=== PATIENT | male | born 1960 | race Caucasian/White ===

== ENCOUNTER → 2016-04-13 | Outpatient (REF) | payer MEDICARE, MEDICAID ==
[2016-04-13 20:02] LABS: CALCIUM LEVEL 8.8 MG/DL (8.5-10.1); CREATININE FOR GFR 1.43 MG/DL (0.70-1.30); GLOMERULAR FILTRATION RATE 54.5 (>56)
[2016-04-13 20:04] LABS: POTASSIUM SERUM 5.2 MEQ/L (3.5-5.1)
== END ==
LOC: M SFHCLERA 11:56
PROVIDERS: ATTEND Family Medicine
DX: E87.1 Hypo-osmolality and hyponatremia (principal)

== ENCOUNTER 2016-04-28 15:34 | Emergency (ER) | payer MEDICARE, MEDICAID ==
--- NOTE | 2016-04-28 17:17 | EDDOCDS ---
Nurse's Notes [facility] Name: Hermann Girard Age: 55 yrs Sex: Male : 1960 Arrival Date: 04/28/2016 Time: 15:34 Bed I10 / 23 Private MD: Christelle Hassan M. Diagnosis: Dental alveolar anomalies;Disorders of tooth development and eruption Presentation: 04/28 15:40 Presenting complaint: Patient states: Tooth fragments surfaced in the back of mouth 4 jo3 weeks ago. Has an appointment 05/13 to have removed. Pt reports that he took last pain medication last night. Was taking Hydrcodone but ran out last night. Adult Sepsis Screening: The patient does not have new or worsening altered mentation. Patient's respiratory rate is less than 22. Systolic blood pressure is greater than 100. Patient has a qSOFA score of 0- Negative Sepsis Screen. Suicide/Homicide risk assessment- the patient denies having any suicidal and/or homicidal ideations and does not present with any other emotional, behavioral or mental health complaints. Status: Patient is not a social services technician or dependent. Transition of care: patient was not received from another setting of care. 15:40 Acuity: CHRISTINE Level 5 jo3 15:40 Method Of Arrival: Walkin/Carried/Asstd jo3 Triage Assessment: 15:45 General: Appears in no apparent distress, Behavior is appropriate for age, cooperative. jo3 Pain: Pain currently is 8 out of 10 on a pain scale. HIV screening NA for this visit Offered previously. Neurological: Level of Consciousness is awake, alert, Oriented to person, place, time. Respiratory: Airway is patent Respiratory effort is even, unlabored. Derm: Skin is pink, warm & dry. 17:15 EENT: Reports pain in mouth. pml Historical: - Allergies: no known allergies; - Home Meds: 1. aspirin 81 mg Oral chew 1 tab once daily 2. citalopram 40 mg Oral tab 1 tab once daily 3. Glucosamine 1000mg oral tab twice a day 4. Novolog 100 unit/mL Sub-Q soln insulin pump 5. prednisone 40mg Oral tab once daily 6. Stool Softener oral 1 cap as needed 7. Fish Oil Oral cap daily - PMHx: Anxiety; Diabetes - IDDM: controlled; Glaucoma; neuropathy; TMJ problems; - PSHx: right wrist; fatty tumor removed from right leg; - Social history: Smoking status: Patient states former smoker of tobacco. No barriers to communication noted, The patient speaks fluent Romansh, Speaks appropriately for age. - Family history: Not pertinent. - : The pt / caregiver states he / she is not on anticoagulants. Home medication list is obtained from the patient. - Exposure Risk Screening:: None identified. Screenin:14 Screening information is obtained from the patient. Fall risk: No risks identified. pml Assistance ADL's: requires no assistance with activities of daily living. Abuse/DV Screen: The patient / caregiver reports he/she is: not in a situation that causes fear, pain or injury. Nutritional screening: No deficits noted. Advance Directives: Currently, there is no health care proxy. home support is adequate. Assessment: 17:14 General: Appears in no apparent distress, Behavior is appropriate for age, cooperative. pml Pain: Location: mouth Pain currently is 10 out of 10 on a pain scale. Neurological: Level of Consciousness is awake, alert, Oriented to person, place, time. EENT: Poor dentition noted. Cardiovascular: Capillary refill < 3 seconds. Respiratory: Airway is patent Respiratory effort is even, unlabored. GI: Abdomen is non- distended. Derm: Skin is pink, warm & dry. Vital Signs: 15:36 BP 164 / 89; Pulse 84; Resp 18 S; Temp 96.4(O); Pulse Ox 100% on R/A; Weight 74.84 kg gr2 (R); Height 5 ft. 9 in. (175.26 cm) (R); Pain 6/10; 15:36 Body Mass Index 24.37 (74.84 kg, 175.26 cm) gr2 Vitals: 15:36 Log In Time: April 28, 2016 at 15:36. gr2 ED Course: 15:36 Patient visited by Tiburcio Plunkett. gr2 15:36 Christelle Hassan is Private Physician. gr2 15:36 Patient moved to Waiting gr2 15:37 Patient visited by Tiburcio Plunkett. gr2 15:37 Patient moved to Pre RCE gr2 15:43 Triage Initiated jo3 15:46 Patient visited by Meme Millan RN. jo3 15:58 Patient moved to Triage 3 srm 16:08 Amanuel Valdez FNP is PHCP. ke 16:08 Patient visited by Amanuel Valdez FNP. ke 16:08 Patient visited by Amanuel Valdez FNP. ke 16:08 Patient moved to [facility] 16:33 [facility] Payment Agreement was scanned into [employer] and attached to record. zo 17:14 The patient / caregiver is instructed regarding the plan of care and ED course. Patient pml has correct armband on for positive identification. Bed in low position. Call light in reach. 17:14 No IV's were initiated during this patient's visit. No procedures done that require pml assistance. Order Results: There are currently no results for this order. Outcome: 16:35 Discharge ordered by Provider. ke 17:14 Discharge Assessment: Patient awake, alert and oriented x 3. No cognitive and/or pml functional deficits noted. Patient verbalized understanding of disposition instructions. patient administered narcotics - no. The following High Risk Discharge criteria are identified: None. Discharged to home ambulatory. Condition: good Condition: stable. Discharge instructions given to patient, Instructed on discharge instructions, follow up and referral plans. medication usage, no driving heavy equipment, Demonstrated understanding of instructions, medications, Pt was receptive of discharge instructions/ teaching. Prescriptions given X 1. No special radiology studies were completed. Property sent home with patient. 17:16 Patient left the ED. pml Signatures: Lily Pereira, NERI [facility] Amanuel Valdez FNP FNP ke Helmerci, Jennifer, RN RN jo3 Olin, Zoeann zo Quay, Paulina, RN RN pml Raymond, Gainslee gr2 Sweeney, Julia, RN RN js15 ERLIN
--- NOTE | 2016-04-28 17:17 | EDDOCDS ---
Physician Documentation [facility] Name: Hermann Girard Age: 55 yrs Sex: Male : 1960 Arrival Date: 04/28/2016 Time: 15:34 Bed I10 / 23 Private MD: Christelle Hassan M. Disposition: 04/28/16 16:35 Discharged to Home/Self Care. Impression: Dental alveolar anomalies, Disorders of tooth development and eruption. - Condition is Stable. - Discharge Instructions: Dental Pain. - Prescriptions for [place] 5- 325 mg Oral Tablet - take 1 tablet by ORAL route every 6 hours As needed MDD: 4 tabs; 20 tablet. - Medication Reconciliation, Local Pharmacy Hours form. - Follow up: Private Physician; When: As soon as possible; Reason: Continuance of care. - Problem is an ongoing problem. - Symptoms are unchanged. Historical: - Allergies: no known allergies; - Home Meds: 1. aspirin 81 mg Oral chew 1 tab once daily 2. citalopram 40 mg Oral tab 1 tab once daily 3. Glucosamine 1000mg oral tab twice a day 4. Novolog 100 unit/mL Sub-Q soln insulin pump 5. prednisone 40mg Oral tab once daily 6. Stool Softener oral 1 cap as needed 7. Fish Oil Oral cap daily - PMHx: Anxiety; Diabetes - IDDM: controlled; Glaucoma; neuropathy; TMJ problems; - PSHx: right wrist; fatty tumor removed from right leg; - Social history: Smoking status: Patient states former smoker of tobacco. No barriers to communication noted, The patient speaks fluent Yoruba, Speaks appropriately for age. - Family history: Not pertinent. - : The pt / caregiver states he / she is not on anticoagulants. Home medication list is obtained from the patient. - Exposure Risk Screening:: None identified. Vital Signs: 04/28 15:36 BP 164 / 89; Pulse 84; Resp 18 S; Temp 96.4(O); Pulse Ox 100% on R/A; Weight 74.84 kg / gr2 164.99 lbs (R); Height 5 ft. 9 in. (175.26 cm) (R); Pain 6/10; 15:36 Body Mass Index 24.37 (74.84 kg, 175.26 cm) gr2 MDM: 16:31 Financial registration complete. zo 16:33 [facility] Payment Agreement was scanned into [employer] and attached to record. zo Signatures: Amanuel Valdez, Meme Turner RN RN Keren Pathak Paulina, RN RN pml The chart was reviewed and I authenticate all verbal orders and agree with the evaluation and treatment provided.Attachments: 16:33 [facility] Payment Agreement zo MTDD
--- NOTE | 2016-04-30 18:17 | EDDOCDS ---
Physician Documentation [facility] Name: Hermann Girard Age: 55 yrs Sex: Male : 1960 Arrival Date: 04/28/2016 Time: 15:34 Bed I10 / 23 Private MD: Christelle Hassan M. Disposition: 04/28/16 16:35 Discharged to Home/Self Care. Impression: Dental alveolar anomalies, Disorders of tooth development and eruption. - Condition is Stable. - Discharge Instructions: Dental Pain. - Prescriptions for [place] 5- 325 mg Oral Tablet - take 1 tablet by ORAL route every 6 hours As needed MDD: 4 tabs; 20 tablet. - Medication Reconciliation, Local Pharmacy Hours form. - Follow up: Private Physician; When: As soon as possible; Reason: Continuance of care. - Problem is an ongoing problem. - Symptoms are unchanged. Historical: - Allergies: no known allergies; - Home Meds: 1. aspirin 81 mg Oral chew 1 tab once daily 2. citalopram 40 mg Oral tab 1 tab once daily 3. Glucosamine 1000mg oral tab twice a day 4. Novolog 100 unit/mL Sub-Q soln insulin pump 5. prednisone 40mg Oral tab once daily 6. Stool Softener oral 1 cap as needed 7. Fish Oil Oral cap daily - PMHx: Anxiety; Diabetes - IDDM: controlled; Glaucoma; neuropathy; TMJ problems; - PSHx: right wrist; fatty tumor removed from right leg; - Social history: Smoking status: Patient states former smoker of tobacco. No barriers to communication noted, The patient speaks fluent Pashto, Speaks appropriately for age. - Family history: Not pertinent. - : The pt / caregiver states he / she is not on anticoagulants. Home medication list is obtained from the patient. - Exposure Risk Screening:: None identified. Vital Signs: 04/28 15:36 BP 164 / 89; Pulse 84; Resp 18 S; Temp 96.4(O); Pulse Ox 100% on R/A; Weight 74.84 kg / gr2 164.99 lbs (R); Height 5 ft. 9 in. (175.26 cm) (R); Pain 6/10; 15:36 Body Mass Index 24.37 (74.84 kg, 175.26 cm) gr2 MDM: 16:31 Financial registration complete. zo 16:33 [facility] Payment Agreement was scanned into [employer] and attached to record. zo 04/29 09:24 T-Sheet-- Draft Copy was scanned into [employer] and attached to record. [facility] Signatures: Amanuel Valdez FNP FNP ke [place]mer[place], Jennifer, RN RN jo3 Keren Zuluaga Paulina, RN RN pml Hoffert, Sarah [facility] The chart was reviewed and I authenticate all verbal orders and agree with the evaluation and treatment provided.Attachments: 04/28 16:33 [facility] Payment Agreement zo 04/29 09:24 T-Sheet-- Draft Copy [facility] Chart Complete MTDD
--- NOTE | 2016-04-30 18:17 | EDDOCDS ---
Physician Documentation [facility] Name: Hermann Girard Age: 55 yrs Sex: Male : 1960 Arrival Date: 04/28/2016 Time: 15:34 Bed I10 / 23 Private MD: Christelle Hassan M. Disposition: 04/28/16 16:35 Discharged to Home/Self Care. Impression: Dental alveolar anomalies, Disorders of tooth development and eruption. - Condition is Stable. - Discharge Instructions: Dental Pain. - Prescriptions for [place] 5- 325 mg Oral Tablet - take 1 tablet by ORAL route every 6 hours As needed MDD: 4 tabs; 20 tablet. - Medication Reconciliation, Local Pharmacy Hours form. - Follow up: Private Physician; When: As soon as possible; Reason: Continuance of care. - Problem is an ongoing problem. - Symptoms are unchanged. Historical: - Allergies: no known allergies; - Home Meds: 1. aspirin 81 mg Oral chew 1 tab once daily 2. citalopram 40 mg Oral tab 1 tab once daily 3. Glucosamine 1000mg oral tab twice a day 4. Novolog 100 unit/mL Sub-Q soln insulin pump 5. prednisone 40mg Oral tab once daily 6. Stool Softener oral 1 cap as needed 7. Fish Oil Oral cap daily - PMHx: Anxiety; Diabetes - IDDM: controlled; Glaucoma; neuropathy; TMJ problems; - PSHx: right wrist; fatty tumor removed from right leg; - Social history: Smoking status: Patient states former smoker of tobacco. No barriers to communication noted, The patient speaks fluent Polish, Speaks appropriately for age. - Family history: Not pertinent. - : The pt / caregiver states he / she is not on anticoagulants. Home medication list is obtained from the patient. - Exposure Risk Screening:: None identified. Vital Signs: 04/28 15:36 BP 164 / 89; Pulse 84; Resp 18 S; Temp 96.4(O); Pulse Ox 100% on R/A; Weight 74.84 kg / gr2 164.99 lbs (R); Height 5 ft. 9 in. (175.26 cm) (R); Pain 6/10; 15:36 Body Mass Index 24.37 (74.84 kg, 175.26 cm) gr2 MDM: 16:31 Financial registration complete. zo 16:33 [facility] Payment Agreement was scanned into [employer] and attached to record. zo 04/29 09:24 T-Sheet-- Draft Copy was scanned into [employer] and attached to record. [facility] Signatures: Amanuel Valdez FNP FNP ke Helmerci, Jennifer, RN RN jo3 Keren Zuluaga Paulina, RN RN pml Hoffert, Sarah [facility] The chart was reviewed and I authenticate all verbal orders and agree with the evaluation and treatment provided.Attachments: 04/28 16:33 [facility] Payment Agreement zo 04/29 09:24 T-Sheet-- Draft Copy [facility] Chart Complete MTDD
--- NOTE | 2016-04-30 18:17 | EDDOCDS ---
Nurse's Notes [facility] Name: Hermann Girard Age: 55 yrs Sex: Male : 1960 Arrival Date: 04/28/2016 Time: 15:34 Bed I10 / 23 Private MD: Christelle Hassan M. Diagnosis: Dental alveolar anomalies;Disorders of tooth development and eruption Presentation: 04/28 15:40 Presenting complaint: Patient states: Tooth fragments surfaced in the back of mouth 4 jo3 weeks ago. Has an appointment 05/13 to have removed. Pt reports that he took last pain medication last night. Was taking Hydrcodone but ran out last night. Adult Sepsis Screening: The patient does not have new or worsening altered mentation. Patient's respiratory rate is less than 22. Systolic blood pressure is greater than 100. Patient has a qSOFA score of 0- Negative Sepsis Screen. Suicide/Homicide risk assessment- the patient denies having any suicidal and/or homicidal ideations and does not present with any other emotional, behavioral or mental health complaints. Status: Patient is not a toll service observer or dependent. Transition of care: patient was not received from another setting of care. 15:40 Acuity: CHRISTINE Level 5 jo3 15:40 Method Of Arrival: Walkin/Carried/Asstd jo3 Triage Assessment: 15:45 General: Appears in no apparent distress, Behavior is appropriate for age, cooperative. jo3 Pain: Pain currently is 8 out of 10 on a pain scale. HIV screening NA for this visit Offered previously. Neurological: Level of Consciousness is awake, alert, Oriented to person, place, time. Respiratory: Airway is patent Respiratory effort is even, unlabored. Derm: Skin is pink, warm & dry. 17:15 EENT: Reports pain in mouth. pml Historical: - Allergies: no known allergies; - Home Meds: 1. aspirin 81 mg Oral chew 1 tab once daily 2. citalopram 40 mg Oral tab 1 tab once daily 3. Glucosamine 1000mg oral tab twice a day 4. Novolog 100 unit/mL Sub-Q soln insulin pump 5. prednisone 40mg Oral tab once daily 6. Stool Softener oral 1 cap as needed 7. Fish Oil Oral cap daily - PMHx: Anxiety; Diabetes - IDDM: controlled; Glaucoma; neuropathy; TMJ problems; - PSHx: right wrist; fatty tumor removed from right leg; - Social history: Smoking status: Patient states former smoker of tobacco. No barriers to communication noted, The patient speaks fluent Hebrew, Speaks appropriately for age. - Family history: Not pertinent. - : The pt / caregiver states he / she is not on anticoagulants. Home medication list is obtained from the patient. - Exposure Risk Screening:: None identified. Screenin:14 Screening information is obtained from the patient. Fall risk: No risks identified. pml Assistance ADL's: requires no assistance with activities of daily living. Abuse/DV Screen: The patient / caregiver reports he/she is: not in a situation that causes fear, pain or injury. Nutritional screening: No deficits noted. Advance Directives: Currently, there is no health care proxy. home support is adequate. Assessment: 17:14 General: Appears in no apparent distress, Behavior is appropriate for age, cooperative. pml Pain: Location: mouth Pain currently is 10 out of 10 on a pain scale. Neurological: Level of Consciousness is awake, alert, Oriented to person, place, time. EENT: Poor dentition noted. Cardiovascular: Capillary refill < 3 seconds. Respiratory: Airway is patent Respiratory effort is even, unlabored. GI: Abdomen is non- distended. Derm: Skin is pink, warm & dry. Vital Signs: 15:36 BP 164 / 89; Pulse 84; Resp 18 S; Temp 96.4(O); Pulse Ox 100% on R/A; Weight 74.84 kg gr2 (R); Height 5 ft. 9 in. (175.26 cm) (R); Pain 6/10; 15:36 Body Mass Index 24.37 (74.84 kg, 175.26 cm) gr2 Vitals: 15:36 Log In Time: April 28, 2016 at 15:36. gr2 ED Course: 15:36 Patient visited by Tiburcio Plunkett. gr2 15:36 Christelle Hassan is Private Physician. gr2 15:36 Patient moved to Waiting gr2 15:37 Patient visited by Tiburcio Plunkett. gr2 15:37 Patient moved to Pre RCE gr2 15:43 Triage Initiated jo3 15:46 Patient visited by Meme Millan RN. jo3 15:58 Patient moved to Triage 3 srm 16:08 Amanuel Valdez FNP is PHCP. ke 16:08 Patient visited by Amanuel Valdez FNP. ke 16:08 Patient visited by Amanuel Valdez FNP. ke 16:08 Patient moved to I1 [facility] 16:33 [facility] Payment Agreement was scanned into [employer] and attached to record. zo 17:14 The patient / caregiver is instructed regarding the plan of care and ED course. Patient pml has correct armband on for positive identification. Bed in low position. Call light in reach. 17:14 No IV's were initiated during this patient's visit. No procedures done that require pml assistance. 04/29 09:24 T-Sheet-- Draft Copy was scanned into [employer] and attached to record. [facility] Order Results: There are currently no results for this order. Outcome: 04/28 16:35 Discharge ordered by Provider. ke 17:14 Discharge Assessment: Patient awake, alert and oriented x 3. No cognitive and/or pml functional deficits noted. Patient verbalized understanding of disposition instructions. patient administered narcotics - no. The following High Risk Discharge criteria are identified: None. Discharged to home ambulatory. Condition: good Condition: stable. Discharge instructions given to patient, Instructed on discharge instructions, follow up and referral plans. medication usage, no driving heavy equipment, Demonstrated understanding of instructions, medications, Pt was receptive of discharge instructions/ teaching. Prescriptions given X 1. No special radiology studies were completed. Property sent home with patient. 17:16 Patient left the ED. pml Signatures: Lily Pereira, RN NERI [facility] Amanuel Valdez FNP FNP ke Helmerci, Jennifer, RN RN jo3 Olin, Zoeann zo Quay, Paulina, RN RN pml Raymond, Gainslee 2 Rachel Peterson RN RN js15 Lorie Baird [facility] Chart Complete MTDD
== END 2016-04-28 17:16 | disposition home or self-care (01) ==
LOC: M ED 15:34
DX: R68.84 Jaw pain (principal); K08.89 Other specified disorders of teeth and supporting structures; F41.9 Anxiety disorder, unspecified; E11.9 Type 2 diabetes mellitus without complications; G62.9 Polyneuropathy, unspecified; M26.609 Unspecified temporomandibular joint disorder, unspecified side; H40.9 Unspecified glaucoma; Z87.891 Personal history of nicotine dependence; Z79.82 Long term (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; Z79.4 Long term (current) use of insulin; Z79.899 Other long term (current) drug therapy

== ENCOUNTER 2016-05-25 17:52 | Emergency (ER) | payer MEDICARE, MEDICAID ==
--- NOTE | 2016-05-25 18:41 | EDDOCDS ---
Nurse's Notes [facility] Name: Hermann Girard Age: 55 yrs Sex: Male : 1960 Arrival Date: 05/25/2016 Time: 17:52 Bed TR7 Private MD: Christelle Hasasn M. Diagnosis: Encounter for other postprocedural aftercare-POST EXTRACTION PAIN Presentation: 05/25 17:56 Presenting complaint: Patient states: teeth extracted 2 weeks ago by [facility] left kpj facial swelling and severe pain. taking Ibuprofen without relief. Adult Sepsis Screening: The patient does not have new or worsening altered mentation. Patient's respiratory rate is less than 22. Systolic blood pressure is less than or equal to 100 (1 point). Patient has a qSOFA score of 1- Negative Sepsis Screen. Suicide/Homicide risk assessment- the patient denies having any suicidal and/or homicidal ideations and does not present with any other emotional, behavioral or mental health complaints. Status: Patient is not a resident services manager or dependent. Transition of care: patient was not received from another setting of care. 17:56 Acuity: CHRISTINE Level 4 [facility] 17:56 Method Of Arrival: Walkin/Carried/Asstd [facility] Triage Assessment: 18:05 General: Appears uncomfortable, Behavior is appropriate for age. Pain: Location: right kpj and left gumline where he had teeth extracted Pain currently is 8 out of 10 on a pain scale. Pt Declines HIV testing. Neurological: Level of Consciousness is awake, alert, Oriented to person, place, time. EENT: facial swelling both sides of face ,left worse than right. Respiratory: Airway is patent Respiratory effort is even, unlabored. Derm: Skin is pink, warm & dry. Historical: - Allergies: No known drug Allergies; - Home Meds: 1. aspirin 81 mg oral tab 1 tab once daily (Last dose: 05/25/2016 08:00) 2. citalopram 40 mg Oral tab 1 tab once daily (Last dose: 05/25/2016 08:00) 3. Fish Oil Oral cap daily (Last dose: 05/25/2016 08:00) 4. Glucosamine 200 mg oral tab daily (Last dose: 05/25/2016 08:00) 5. Novolog 100 unit/mL Sub-Q soln insulin pump 6. etodolac 200 mg Oral cap 1 cap daily (Last dose: 05/25/2016 08:00) 7. methocarbamol 500 mg Oral tab 1 tabs every 4 hours as needed (Last dose: Unknown) 8. Flonase 50 mcg/actuation Nasal spsn 1 spray 2 times per day as needed (Last dose: Unknown) 9. Cosopt 22.3-6.8 mg/mL Opht drop 1 drop 2 times per day (Last dose: 05/25/2016 08:00) 10. lantaprost 0.005% 1 drop twice a day (Last dose: 05/25/2016 08:00) 11. prednisone 35 mg Oral tab once daily (Last dose: 05/25/2016 08:00) 12. lisinopril 10 mg Oral tab 1 tab once daily (Last dose: 05/25/2016 08:00) - PMHx: Anxiety; Diabetes - IDDM: controlled; Glaucoma; neuropathy; TMJ problems; - PSHx: right wrist; fatty tumor removed from right leg; teeth extraction; - Social history: Smoking status: Patient states former smoker of tobacco. No barriers to communication noted, The patient speaks fluent Yemeni. - Family history: Not pertinent. - : The pt / caregiver states he / she is not on anticoagulants. Home medication list is obtained from the patient. - Exposure Risk Screening:: None identified. Screenin:39 Screening information is obtained from the patient. Fall risk: No risks identified. srm Assistance ADL's: requires no assistance with activities of daily living. Abuse/DV Screen: The patient / caregiver reports he/she is: not in a situation that causes fear, pain or injury. Nutritional screening: No deficits noted. Advance Directives: There is no active DNR order. home support is adequate. Assessment: 18:38 General: Appears uncomfortable, Behavior is appropriate for age, cooperative. srm Neurological: No deficits noted. Cardiovascular: No deficits noted. Respiratory: No deficits noted. GI: No deficits noted. Vital Signs: 17:54 BP 94 / 56; Pulse 76; Resp 18 S; Temp 97.4(O); Pulse Ox 98% on R/A; Weight 76.66 kg gr2 (R); Height 5 ft. 9 in. (175.26 cm) (R); Pain 8/10; 17:54 Body Mass Index 24.96 (76.66 kg, 175.26 cm) gr2 Vitals: 17:54 Log In Time: May 25, 2016 at 17:54. gr2 ED Course: 17:53 Patient visited by Tiburcio Plunkett. gr2 17:53 Christelle Hassan is Private Physician. gr2 17:53 Patient moved to Waiting gr2 17:56 Patient visited by Tiburcio Plunkett. gr2 17:56 Patient moved to Pre RCE gr2 17:58 Triage Initiated kpj 18:07 Patient moved to Triage 3 kpj 18:11 Eugenio Thorpe R[facility]-C [facility] ck7 18:11 Lobito Armstrong MD is Attending Physician. ck7 18:12 Patient visited by Eugenio Thorpe RPA-C. ck7 18:30 Your, Dentist is Referral Physician. ck7 18:37 Patient moved to TR7 [facility] 18:39 The patient / caregiver is instructed regarding the plan of care and ED course. Patient srm has correct armband on for positive identification. 18:39 No IV's were initiated during this patient's visit. No procedures done that require srm assistance. Order Results: There are currently no results for this order. Outcome: 18:30 Discharge ordered by Provider. ck7 18:39 Discharge Assessment: Patient awake, alert and oriented x 3. No cognitive and/or srm functional deficits noted. Patient verbalized understanding of disposition instructions. patient administered narcotics - no. The following High Risk Discharge criteria are identified: None. Discharged to home ambulatory. Condition: good Condition: stable. Discharge instructions given to patient, Instructed on discharge instructions, follow up and referral plans. medication usage, Demonstrated understanding of instructions, medications, Pt was receptive of discharge instructions/ teaching. Prescriptions given X 1. No special radiology studies were completed. Property sent home with patient. 18:40 Patient left the ED. srm Signatures: Kerry Barraza RN RN kpj Michelson, Staci, RN RN [facility] Eugenio Thorpe RPA-C [facility] Tiburcio Plunkett gr2 MTDD
--- NOTE | 2016-05-25 18:41 | EDDOCDS ---
Physician Documentation [facility] Name: Hermann Girard Age: 55 yrs Sex: Male : 1960 Arrival Date: 05/25/2016 Time: 17:52 Bed TR7 Private MD: Christelle Hassan M. Disposition: 05/25/16 18:30 Discharged to Home/Self Care. Impression: Encounter for other postprocedural aftercare - POST EXTRACTION PAIN. - Condition is Stable. - Discharge Instructions: Dental Extraction, Care After. - Prescriptions for Ultram 50 mg Oral Tablet - take 1 tablet by ORAL route every [address] BARRERA, MDD: 4 tabs; 6 tablet. - Medication Reconciliation, Local Pharmacy Hours form. - Follow up: Your, Dentist; When: Tomorrow; Reason: Recheck today's complaints, Continuance of care. - Problem is new. - Symptoms have improved. - Notes: USE MEDICATION INSTRUCTED, FOLLOW UP WITH YOUR DENTIST TOMORROW Historical: - Allergies: No known drug Allergies; - Home Meds: 1. aspirin 81 mg oral tab 1 tab once daily (Last dose: 05/25/2016 08:00) 2. citalopram 40 mg Oral tab 1 tab once daily (Last dose: 05/25/2016 08:00) 3. Fish Oil Oral cap daily (Last dose: 05/25/2016 08:00) 4. Glucosamine 200 mg oral tab daily (Last dose: 05/25/2016 08:00) 5. Novolog 100 unit/mL Sub-Q soln insulin pump 6. etodolac 200 mg Oral cap 1 cap daily (Last dose: 05/25/2016 08:00) 7. methocarbamol 500 mg Oral tab 1 tabs every 4 hours as needed (Last dose: Unknown) 8. Flonase 50 mcg/actuation Nasal spsn 1 spray 2 times per day as needed (Last dose: Unknown) 9. Cosopt 22.3-6.8 mg/mL Opht drop 1 drop 2 times per day (Last dose: 05/25/2016 08:00) 10. lantaprost 0.005% 1 drop twice a day (Last dose: 05/25/2016 08:00) 11. prednisone 35 mg Oral tab once daily (Last dose: 05/25/2016 08:00) 12. lisinopril 10 mg Oral tab 1 tab once daily (Last dose: 05/25/2016 08:00) - PMHx: Anxiety; Diabetes - IDDM: controlled; Glaucoma; neuropathy; TMJ problems; - PSHx: right wrist; fatty tumor removed from right leg; teeth extraction; - Social history: Smoking status: Patient states former smoker of tobacco. No barriers to communication noted, The patient speaks fluent Japanese. - Family history: Not pertinent. - : The pt / caregiver states he / she is not on anticoagulants. Home medication list is obtained from the patient. - Exposure Risk Screening:: None identified. Vital Signs: 05/25 17:54 BP 94 / 56; Pulse 76; Resp 18 S; Temp 97.4(O); Pulse Ox 98% on R/A; Weight 76.66 kg / gr2 169.01 lbs (R); Height 5 ft. 9 in. (175.26 cm) (R); Pain 8/10; 17:54 Body Mass Index 24.96 (76.66 kg, 175.26 cm) gr2 MDM: 18:34 Financial registration complete. kf3 Signatures: Kerry Barraza, RN RN Lily Huber RN RN srm Fiddler, Kris, Reg Reg kf3 Eugenio Thorpe, RPA-C RPA-Cck7 MTDD
--- NOTE | 2016-05-27 19:41 | EDDOCDS ---
Physician Documentation [facility] Name: Hermann Girard Age: 55 yrs Sex: Male : 1960 Arrival Date: 05/25/2016 Time: 17:52 Bed TR7 Private MD: Christelle Hassan M. Disposition: 05/25/16 18:30 Discharged to Home/Self Care. Impression: Encounter for other postprocedural aftercare - POST EXTRACTION PAIN. - Condition is Stable. - Discharge Instructions: Dental Extraction, Care After. - Prescriptions for Ultram 50 mg Oral Tablet - take 1 tablet by ORAL route every [address] BARRERA, MDD: 4 tabs; 6 tablet. - Medication Reconciliation, Local Pharmacy Hours form. - Follow up: Your, Dentist; When: Tomorrow; Reason: Recheck today's complaints, Continuance of care. - Problem is new. - Symptoms have improved. - Notes: USE MEDICATION INSTRUCTED, FOLLOW UP WITH YOUR DENTIST TOMORROW Historical: - Allergies: No known drug Allergies; - Home Meds: 1. aspirin 81 mg oral tab 1 tab once daily (Last dose: 05/25/2016 08:00) 2. citalopram 40 mg Oral tab 1 tab once daily (Last dose: 05/25/2016 08:00) 3. Fish Oil Oral cap daily (Last dose: 05/25/2016 08:00) 4. Glucosamine 200 mg oral tab daily (Last dose: 05/25/2016 08:00) 5. Novolog 100 unit/mL Sub-Q soln insulin pump 6. etodolac 200 mg Oral cap 1 cap daily (Last dose: 05/25/2016 08:00) 7. methocarbamol 500 mg Oral tab 1 tabs every 4 hours as needed (Last dose: Unknown) 8. Flonase 50 mcg/actuation Nasal spsn 1 spray 2 times per day as needed (Last dose: Unknown) 9. Cosopt 22.3-6.8 mg/mL Opht drop 1 drop 2 times per day (Last dose: 05/25/2016 08:00) 10. lantaprost 0.005% 1 drop twice a day (Last dose: 05/25/2016 08:00) 11. prednisone 35 mg Oral tab once daily (Last dose: 05/25/2016 08:00) 12. lisinopril 10 mg Oral tab 1 tab once daily (Last dose: 05/25/2016 08:00) - PMHx: Anxiety; Diabetes - IDDM: controlled; Glaucoma; neuropathy; TMJ problems; - PSHx: right wrist; fatty tumor removed from right leg; teeth extraction; - Social history: Smoking status: Patient states former smoker of tobacco. No barriers to communication noted, The patient speaks fluent Tamazight. - Family history: Not pertinent. - : The pt / caregiver states he / she is not on anticoagulants. Home medication list is obtained from the patient. - Exposure Risk Screening:: None identified. Vital Signs: 05/25 17:54 BP 94 / 56; Pulse 76; Resp 18 S; Temp 97.4(O); Pulse Ox 98% on R/A; Weight 76.66 kg / gr2 169.01 lbs (R); Height 5 ft. 9 in. (175.26 cm) (R); Pain 8/10; 17:54 Body Mass Index 24.96 (76.66 kg, 175.26 cm) gr2 MDM: 18:34 Financial registration complete. kf3 18:49 [facility] Payment Agreement was scanned into [employer] and attached to record. kf3 05/26 19:00 T-Sheet-- Draft Copy was scanned into [employer] and attached to record. klr Signatures: Kerry Barraza RN RN kpj Michelson, Staci, RN RN srm Fidcharityr, Danilo, Reg Reg kf3 Eugenio Thorpe, RPA-C RPA-Cck7 Colette Edmonds The chart was reviewed and I authenticate all verbal orders and agree with the evaluation and treatment provided.Attachments: 05/25 18:49 [facility] Payment Agreement kf3 05/26 19:00 T-Sheet-- Draft Copy klr Chart Complete MTDD
--- NOTE | 2016-05-27 19:41 | EDDOCDS ---
Physician Documentation [facility] Name: Hermann Girard Age: 55 yrs Sex: Male : 1960 Arrival Date: 05/25/2016 Time: 17:52 Bed TR7 Private MD: Christelle Hassan M. Disposition: 05/25/16 18:30 Discharged to Home/Self Care. Impression: Encounter for other postprocedural aftercare - POST EXTRACTION PAIN. - Condition is Stable. - Discharge Instructions: Dental Extraction, Care After. - Prescriptions for Ultram 50 mg Oral Tablet - take 1 tablet by ORAL route every [address] BARRERA, MDD: 4 tabs; 6 tablet. - Medication Reconciliation, Local Pharmacy Hours form. - Follow up: Your, Dentist; When: Tomorrow; Reason: Recheck today's complaints, Continuance of care. - Problem is new. - Symptoms have improved. - Notes: USE MEDICATION INSTRUCTED, FOLLOW UP WITH YOUR DENTIST TOMORROW Historical: - Allergies: No known drug Allergies; - Home Meds: 1. aspirin 81 mg oral tab 1 tab once daily (Last dose: 05/25/2016 08:00) 2. citalopram 40 mg Oral tab 1 tab once daily (Last dose: 05/25/2016 08:00) 3. Fish Oil Oral cap daily (Last dose: 05/25/2016 08:00) 4. Glucosamine 200 mg oral tab daily (Last dose: 05/25/2016 08:00) 5. Novolog 100 unit/mL Sub-Q soln insulin pump 6. etodolac 200 mg Oral cap 1 cap daily (Last dose: 05/25/2016 08:00) 7. methocarbamol 500 mg Oral tab 1 tabs every 4 hours as needed (Last dose: Unknown) 8. Flonase 50 mcg/actuation Nasal spsn 1 spray 2 times per day as needed (Last dose: Unknown) 9. Cosopt 22.3-6.8 mg/mL Opht drop 1 drop 2 times per day (Last dose: 05/25/2016 08:00) 10. lantaprost 0.005% 1 drop twice a day (Last dose: 05/25/2016 08:00) 11. prednisone 35 mg Oral tab once daily (Last dose: 05/25/2016 08:00) 12. lisinopril 10 mg Oral tab 1 tab once daily (Last dose: 05/25/2016 08:00) - PMHx: Anxiety; Diabetes - IDDM: controlled; Glaucoma; neuropathy; TMJ problems; - PSHx: right wrist; fatty tumor removed from right leg; teeth extraction; - Social history: Smoking status: Patient states former smoker of tobacco. No barriers to communication noted, The patient speaks fluent Korean. - Family history: Not pertinent. - : The pt / caregiver states he / she is not on anticoagulants. Home medication list is obtained from the patient. - Exposure Risk Screening:: None identified. Vital Signs: 05/25 17:54 BP 94 / 56; Pulse 76; Resp 18 S; Temp 97.4(O); Pulse Ox 98% on R/A; Weight 76.66 kg / gr2 169.01 lbs (R); Height 5 ft. 9 in. (175.26 cm) (R); Pain 8/10; 17:54 Body Mass Index 24.96 (76.66 kg, 175.26 cm) gr2 MDM: 18:34 Financial registration complete. kf3 18:49 [facility] Payment Agreement was scanned into [employer] and attached to record. kf3 05/26 19:00 T-Sheet-- Draft Copy was scanned into [employer] and attached to record. klr Signatures: Kerry Barraza RN RN kpj Michelson, Staci, RN RN srm Fidcharityr, Danilo, Reg Reg kf3 Eugenio Thorpe, RPA-C RPA-Cck7 Colette Edmonds The chart was reviewed and I authenticate all verbal orders and agree with the evaluation and treatment provided.Attachments: 05/25 18:49 [facility] Payment Agreement kf3 05/26 19:00 T-Sheet-- Draft Copy klr Chart Complete MTDD
--- NOTE | 2016-05-27 19:42 | EDDOCDS ---
Nurse's Notes [facility] Name: Hermann Girard Age: 55 yrs Sex: Male : 1960 Arrival Date: 05/25/2016 Time: 17:52 Bed TR7 Private MD: Christelle Hassan M. Diagnosis: Encounter for other postprocedural aftercare-POST EXTRACTION PAIN Presentation: 05/25 17:56 Presenting complaint: Patient states: teeth extracted 2 weeks ago by [facility] left kpj facial swelling and severe pain. taking Ibuprofen without relief. Adult Sepsis Screening: The patient does not have new or worsening altered mentation. Patient's respiratory rate is less than 22. Systolic blood pressure is less than or equal to 100 (1 point). Patient has a qSOFA score of 1- Negative Sepsis Screen. Suicide/Homicide risk assessment- the patient denies having any suicidal and/or homicidal ideations and does not present with any other emotional, behavioral or mental health complaints. Status: Patient is not a service worker helper or dependent. Transition of care: patient was not received from another setting of care. 17:56 Acuity: CHRISTINE Level 4 [facility] 17:56 Method Of Arrival: Walkin/Carried/Asstd [facility] Triage Assessment: 18:05 General: Appears uncomfortable, Behavior is appropriate for age. Pain: Location: right kpj and left gumline where he had teeth extracted Pain currently is 8 out of 10 on a pain scale. Pt Declines HIV testing. Neurological: Level of Consciousness is awake, alert, Oriented to person, place, time. EENT: facial swelling both sides of face ,left worse than right. Respiratory: Airway is patent Respiratory effort is even, unlabored. Derm: Skin is pink, warm & dry. Historical: - Allergies: No known drug Allergies; - Home Meds: 1. aspirin 81 mg oral tab 1 tab once daily (Last dose: 05/25/2016 08:00) 2. citalopram 40 mg Oral tab 1 tab once daily (Last dose: 05/25/2016 08:00) 3. Fish Oil Oral cap daily (Last dose: 05/25/2016 08:00) 4. Glucosamine 200 mg oral tab daily (Last dose: 05/25/2016 08:00) 5. Novolog 100 unit/mL Sub-Q soln insulin pump 6. etodolac 200 mg Oral cap 1 cap daily (Last dose: 05/25/2016 08:00) 7. methocarbamol 500 mg Oral tab 1 tabs every 4 hours as needed (Last dose: Unknown) 8. Flonase 50 mcg/actuation Nasal spsn 1 spray 2 times per day as needed (Last dose: Unknown) 9. Cosopt 22.3-6.8 mg/mL Opht drop 1 drop 2 times per day (Last dose: 05/25/2016 08:00) 10. lantaprost 0.005% 1 drop twice a day (Last dose: 05/25/2016 08:00) 11. prednisone 35 mg Oral tab once daily (Last dose: 05/25/2016 08:00) 12. lisinopril 10 mg Oral tab 1 tab once daily (Last dose: 05/25/2016 08:00) - PMHx: Anxiety; Diabetes - IDDM: controlled; Glaucoma; neuropathy; TMJ problems; - PSHx: right wrist; fatty tumor removed from right leg; teeth extraction; - Social history: Smoking status: Patient states former smoker of tobacco. No barriers to communication noted, The patient speaks fluent Vincentian. - Family history: Not pertinent. - : The pt / caregiver states he / she is not on anticoagulants. Home medication list is obtained from the patient. - Exposure Risk Screening:: None identified. Screenin:39 Screening information is obtained from the patient. Fall risk: No risks identified. srm Assistance ADL's: requires no assistance with activities of daily living. Abuse/DV Screen: The patient / caregiver reports he/she is: not in a situation that causes fear, pain or injury. Nutritional screening: No deficits noted. Advance Directives: There is no active DNR order. home support is adequate. Assessment: 18:38 General: Appears uncomfortable, Behavior is appropriate for age, cooperative. srm Neurological: No deficits noted. Cardiovascular: No deficits noted. Respiratory: No deficits noted. GI: No deficits noted. Vital Signs: 17:54 BP 94 / 56; Pulse 76; Resp 18 S; Temp 97.4(O); Pulse Ox 98% on R/A; Weight 76.66 kg gr2 (R); Height 5 ft. 9 in. (175.26 cm) (R); Pain 8/10; 17:54 Body Mass Index 24.96 (76.66 kg, 175.26 cm) gr2 Vitals: 17:54 Log In Time: May 25, 2016 at 17:54. gr2 ED Course: 17:53 Patient visited by Tiburcio Plunkett. gr2 17:53 Christelle Hassan is Private Physician. gr2 17:53 Patient moved to Waiting gr2 17:56 Patient visited by Tiburcio Plunkett. gr2 17:56 Patient moved to Pre RCE gr2 17:58 Triage Initiated kpj 18:07 Patient moved to Triage 3 kpj 18:11 [facility] ck[facility] 18:11 Lobito Armstrong MD is Attending Physician. ck7 18:12 Patient visited by Eugenio Thorpe RPA-C. ck7 18:30 Giuliano Dentist is Referral Physician. ck7 18:37 Patient moved to TR7 [facility] 18:39 The patient / caregiver is instructed regarding the plan of care and ED course. Patient srm has correct armband on for positive identification. 18:39 No IV's were initiated during this patient's visit. No procedures done that require [facility] assistance. 18:49 Patient name changed from Hermann\S\Rojas\S\Girard\S\ to Hermann\S\A\S\Girard. EDWI 18:49 [facility] Payment Agreement was scanned into [employer] and attached to record. kf3 05/26 19:00 T-Sheet-- Draft Copy was scanned into [employer] and attached to record. klr Order Results: There are currently no results for this order. Outcome: 05/25 18:30 Discharge ordered by Provider. ck7 18:39 Discharge Assessment: Patient awake, alert and oriented x 3. No cognitive and/or srm functional deficits noted. Patient verbalized understanding of disposition instructions. patient administered narcotics - no. The following High Risk Discharge criteria are identified: None. Discharged to home ambulatory. Condition: good Condition: stable. Discharge instructions given to patient, Instructed on discharge instructions, follow up and referral plans. medication usage, Demonstrated understanding of instructions, medications, Pt was receptive of discharge instructions/ teaching. Prescriptions given X 1. No special radiology studies were completed. Property sent home with patient. 18:40 Patient left the ED. srm Signatures: Dispatcher [employer] EDMS Kerry Barraza RN RN j Lily Pereira RN RN srm Moise, Danilo, Reg Reg kf3 Eugenio Thorpe, RPA-C RPA-Cck7 Tiburcio Plunkett gr2 Colette Edmonds Chart Complete MTDD
== END 2016-05-25 18:40 | disposition home or self-care (01) ==
LOC: M ED 17:52
DX: G89.18 Other acute postprocedural pain (principal); F41.9 Anxiety disorder, unspecified; E10.9 Type 1 diabetes mellitus without complications; L40.9 Psoriasis, unspecified; G62.9 Polyneuropathy, unspecified; Z87.891 Personal history of nicotine dependence; Z79.82 Long term (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; Z96.41 Presence of insulin pump (external) (internal); Z79.899 Other long term (current) drug therapy

== ENCOUNTER → 2016-06-07 | Outpatient (CLI) | payer MEDICARE, MEDICAID ==
[2016-06-07 18:33] LABS: ALBUMIN 3.2 GM/DL (3.2-5.2); ALBUMIN/GLOBULIN RATIO 1.19 (1.00-1.93); ALKALINE PHOSPHATASE 55 U/L (45-117); ALT/SGPT 60 U/L (12-78); ANION GAP 8 MEQ/L (8-16); AST/SGOT 39 U/L (15-37); BILIRUBIN,TOTAL 0.5 MG/DL (0.2-1.0); BLOOD UREA NITROGEN 29 MG/DL (7-18); CARBON DIOXIDE LEVEL 29 MEQ/L (21-32); CHLORIDE LEVEL 107 MEQ/L (98-107); CREATININE FOR GFR 1.44 MG/DL (0.70-1.30); GLUCOSE, FASTING 74 MG/DL (70-105); POTASSIUM SERUM 4.5 MEQ/L (3.5-5.1); SODIUM LEVEL 144 MEQ/L (136-145); TOTAL PROTEIN 5.9 GM/DL (6.4-8.2)
[2016-06-07 18:50] LABS: BASO % 0.4 % (0.0-1.0); EOS # 0.2 K/mm3 (0.0-0.50); EOS % 1.4 % (0.0-3.0); LARGE UNSTAINED CELL # 0.1 K/mm3 (0.0-0.4); LARGE UNSTAINED CELL % 0.9 % (0.0-4.0); LYMPH % 17.9 % (24.0-44.0); MEAN CORPUSCULAR HEMOGLOBIN 31.9 pg (27.0-33.0); MEAN CORPUSCULAR VOLUME 96.7 fl (80.0-96.0); MONO # 0.5 K/mm3 (0.0-0.8); NEUTROPHILS # 7.9 K/mm3 (1.8-7.7); NEUTROPHILS % 74.4 % (36.0-66.0); PLATELET COUNT, AUTOMATED 278 k/mm3 (150-450); RED CELL DISTRIBUTION WIDTH 13.9 % (11.5-14.5); WHITE BLOOD COUNT 10.6 K/mm3 (4.0-10.0)
[2016-06-07 19:41] LABS: ERYTHROCYTE SEDIMENTATION RATE 10 mm/hr (0-20)
== END ==
LOC: M LRY 13:21
PROVIDERS: ATTEND Nurse Practitioner Family
DX: M31.6 Other giant cell arteritis (principal)

== ENCOUNTER → 2016-07-04 | Outpatient (CLI) | payer MEDICARE, MEDICAID ==
[~2016-07-04] MED LIST: AMLO5TAB2; ATOR40TA; CITA40TA4; INSUH10VL; LISI10TA4; OMEP20CA3; PRED20TA; SULF1TAB72; TIMOXEOPD
[2016-07-04 17:34] LABS: ALBUMIN 3.4 GM/DL (3.2-5.2); ALBUMIN/GLOBULIN RATIO 1.17 (1.00-1.93); ALKALINE PHOSPHATASE 75 U/L (45-117); ALT/SGPT 47 U/L (12-78); ANION GAP 8 MEQ/L (8-16); AST/SGOT 26 U/L (15-37); BILIRUBIN,TOTAL 0.6 MG/DL (0.2-1.0); BLOOD UREA NITROGEN 34 MG/DL (7-18); CALCIUM LEVEL 9.6 MG/DL (8.5-10.1); CARBON DIOXIDE LEVEL 27 MEQ/L (21-32); CHLORIDE LEVEL 103 MEQ/L (98-107); CREATININE FOR GFR 1.88 MG/DL (0.70-1.30); GLOMERULAR FILTRATION RATE 39.7 (>56); GLUCOSE, FASTING 351 MG/DL (70-105); SODIUM LEVEL 138 MEQ/L (136-145); TOTAL PROTEIN 6.3 GM/DL (6.4-8.2)
[2016-07-04 18:44] LABS: BASO % 0.1 % (0.0-1.0); EOS % 0.2 % (0.0-3.0); LYMPH # 1.4 K/mm3 (1.5-4.5); LYMPH % 11.4 % (24.0-44.0); MEAN CORPUSCULAR HGB CONC 32.7 g/dl (32.0-36.5); MEAN CORPUSCULAR VOLUME 97.8 fl (80.0-96.0); MONO # 0.4 K/mm3 (0.0-0.8); MONO % 3.8 % (0.0-5.0); NEUTROPHILS # 9.6 K/mm3 (1.8-7.7); RED CELL DISTRIBUTION WIDTH 13.9 % (11.5-14.5); WHITE BLOOD COUNT 11.4 K/mm3 (4.0-10.0)
[2016-07-04 21:20] LABS: POTASSIUM SERUM 6.2 MEQ/L (3.5-5.1)
== END ==
LOC: M LRY 13:30
PROVIDERS: ATTEND Nurse Practitioner Family
DX: M31.6 Other giant cell arteritis (principal)

== ENCOUNTER 2016-07-05 12:15 | Emergency (ER) | payer MEDICARE, MEDICAID ==
[~2016-07-05] VITALS: Ht 175.3 cm; Wt 72.6 kg
[2016-07-05] MEDS ORDERED: PRED20TA PO (12:31)
[2016-07-05] MEDS ORDERED: AMLO5TAB2 (12:31)
[2016-07-05] MEDS ORDERED: LISI10TA4 (12:31)
[2016-07-05] MEDS ORDERED: ATOR40TA (12:31)
[2016-07-05] MEDS ORDERED: INSUH10VL (12:31)
[2016-07-05] MEDS ORDERED: OMEP20CA3 (12:31)
[2016-07-05] MEDS ORDERED: SULF1TAB72 (12:31)
[2016-07-05] MEDS ORDERED: TIMOXEOPD (12:31)
[2016-07-05] MEDS ORDERED: CITA40TA4 (12:31)
[2016-07-05] MEDS ORDERED: NS 1,000 ML IV ONE (13:00)
[2016-07-05 13:29] LABS: BASO % 0.2 % (0.0-1.0); EOS % 0.4 % (0.0-3.0); LARGE UNSTAINED CELL % 0.3 % (0.0-4.0); LYMPH # 1.4 K/mm3 (1.5-4.5); MEAN CORPUSCULAR HEMOGLOBIN 32.5 pg (27.0-33.0); MEAN CORPUSCULAR HGB CONC 34.1 g/dl (32.0-36.5); MEAN CORPUSCULAR VOLUME 95.4 fl (80.0-96.0); MONO # 0.5 K/mm3 (0.0-0.8); MONO % 3.8 % (0.0-5.0); NEUTROPHILS # 10.7 K/mm3 (1.8-7.7); NEUTROPHILS % 84.3 % (36.0-66.0); PLATELET COUNT, AUTOMATED 294 k/mm3 (150-450); RED CELL DISTRIBUTION WIDTH 13.9 % (11.5-14.5); WHITE BLOOD COUNT 12.7 K/mm3 (4.0-10.0)
[2016-07-05 13:34] LABS: ANION GAP 8 MEQ/L (8-16); BLOOD UREA NITROGEN 35 MG/DL (7-18); CALCIUM LEVEL 10.1 MG/DL (8.5-10.1); CARBON DIOXIDE LEVEL 26 MEQ/L (21-32); CHLORIDE LEVEL 103 MEQ/L (98-107); CREATININE FOR GFR 1.52 MG/DL (0.70-1.30); GLOMERULAR FILTRATION RATE 50.8 (>56); GLUCOSE, FASTING 179 MG/DL (70-105); POTASSIUM SERUM 4.8 MEQ/L (3.5-5.1); SODIUM LEVEL 137 MEQ/L (136-145)
[2016-07-05] MEDS ORDERED: MORPHINE 4 MG/ML 1ML SYRINGE IV ONE (14:00)
[2016-07-05 14:30] VITALS: BP 143/78
--- NOTE | 2016-07-05 21:47 | ECGEPIP ---
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 Order Number: [id number] Reading MD: Lorie Garcia Measurements Intervals [place] Rate: 76 P: 64 IA: 127 QRS: 41 QRSD: 94 T: 40 QT: 341 QTc: 385 Interpretive Statements SINUS RHYTHM NSTTW ABNORMALITY SIMILAR 09/05/14 Electronically Signed On 07-05-2016 21:46:50 EDT by Lorie Garcia
== END 2016-07-05 15:04 | disposition home or self-care (01) ==
LOC: M ED 13:28
DX: E86.0 Dehydration (principal); R68.84 Jaw pain; I10 Essential (primary) hypertension; E78.00 Pure hypercholesterolemia, unspecified; K21.9 Gastro-esophageal reflux disease without esophagitis; E11.9 Type 2 diabetes mellitus without complications; F41.9 Anxiety disorder, unspecified; F32.9 Major depressive disorder, single episode, unspecified; Z79.899 Other long term (current) drug therapy

== ENCOUNTER 2016-07-08 08:27 | Emergency (ER) | payer MEDICARE, MEDICAID ==
[~2016-07-08] VITALS: Ht 175.3 cm; Wt 74.4 kg
[~2016-07-08 08:27] MED LIST changes: -PRED20TA; +PRED20TA PO
[2016-07-08] MEDS ORDERED: KETOROLAC 30 MG/ML VIAL (J1885) IV ONE (09:30)
[2016-07-08 09:41] LABS: BASO % 0.1 % (0.0-1.0); EOS % 0.2 % (0.0-3.0); LARGE UNSTAINED CELL # 0.1 K/mm3 (0.0-0.4); LARGE UNSTAINED CELL % 0.9 % (0.0-4.0); LYMPH # 1.5 K/mm3 (1.5-4.5); LYMPH % 11.1 % (24.0-44.0); MEAN CORPUSCULAR HEMOGLOBIN 32.6 pg (27.0-33.0); MEAN CORPUSCULAR HGB CONC 33.2 g/dl (32.0-36.5); MEAN CORPUSCULAR VOLUME 98.1 fl (80.0-96.0); MONO # 0.8 K/mm3 (0.0-0.8); MONO % 6.1 % (0.0-5.0); NEUTROPHILS # 10.7 K/mm3 (1.8-7.7); NEUTROPHILS % 81.6 % (36.0-66.0); PLATELET COUNT, AUTOMATED 234 k/mm3 (150-450); RED CELL DISTRIBUTION WIDTH 13.8 % (11.5-14.5); WHITE BLOOD COUNT 13.1 K/mm3 (4.0-10.0)
[2016-07-08] MEDS ORDERED: ONDANSETRON 4MG/2ML VIAL (J2405) IV ONE (09:45)
[2016-07-08] MEDS ORDERED: MORPHINE 4 MG/ML 1ML SYRINGE IV ONE (09:45)
[2016-07-08 10:01] LABS: ALKALINE PHOSPHATASE 73 U/L (45-117); ALT/SGPT 38 U/L (12-78); ANION GAP 8 MEQ/L (8-16); AST/SGOT 18 U/L (15-37); BILIRUBIN,TOTAL 0.2 MG/DL (0.2-1.0); BLOOD UREA NITROGEN 27 MG/DL (7-18); CALCIUM LEVEL 7.8 MG/DL (8.5-10.1); CARBON DIOXIDE LEVEL 25 MEQ/L (21-32); CHLORIDE LEVEL 103 MEQ/L (98-107); CREATININE FOR GFR 1.31 MG/DL (0.70-1.30); GLOMERULAR FILTRATION RATE > 60.0 (>56); POTASSIUM SERUM 4.1 MEQ/L (3.5-5.1); SODIUM LEVEL 136 MEQ/L (136-145)
[2016-07-08 10:16] LABS: GLUCOSE, FASTING 426 MG/DL (70-105)
[2016-07-08] MEDS ORDERED: HumuLIN R (REGULAR) INSULIN (NovoLIN R) **100U/ML** PER UNIT IV ONE (10:30)
[2016-07-08] MEDS ORDERED: AUGM875T27 PO (11:59)
[2016-07-08] MEDS ORDERED: AUGMENTIN 875 MG TAB PO ONE (12:00)
[2016-07-08 12:12] VITALS: BP 140/80
--- NOTE | 2016-07-08 14:50 | CR.PDOC ---
[facility] Consultation Consultation DATE OF CONSULTATION: Jul 08, 2016 at 09:40 PRIMARY CARE PHYSICIAN: Dr. Christelle Hassan REFERRING PROVIDER: Shu Hernandez PA-C REASON FOR CONSULTATION/CHIEF COMPLAINT: . Evaluation for admission for Hyperglycemia in the ER HISTORY OF PRESENT ILLNESS: . 55-year-old male with a past medical history of hypertension, dyslipidemia, type 1 insulin-dependent diabetes on an insulin pump, chronic kidney disease, and temporal arteritis presented to the ER after he was found to have an elevated potassium level on routine lab work by his tube builder. Upon arrival to the ER, the patient specified no acute complaints, and noted that he came to have his blood work checked. Upon evaluation of his lab work it was noted the patient had a potassium level within normal limits. However, the patient did have an elevated blood sugar level of 426. The hospitalist team was called for further evaluation of the patient's elevated glucose levels. Upon my evaluation, the patient states that his blood sugar levels have been elevated in the morning as his prednisone dose was increased for treatment of his temporal arteritis. The patient states that he did administer himself a bolus of insulin following the elevated reading a few hours prior. Upon rechecking his blood sugar level it was noted to be 168. The patient offered no complaints, and notes that he was relieved that his potassium levels were within normal limits. The patient states that he does have a follow-up appointment with energy efficiency specialist Dr. Kuhn on Sunday07/11/16. HOME MEDICATIONS: Please see below. PAST MEDICAL HISTORY: As noted in HPI PAST SURGICAL HISTORY: Removal of benign tumor of the left calf FAMILY HISTORY: Noncontributory SOCIAL HISTORY: Former smoker, denies illicit drug use or alcohol use. REVIEW OF SYSTEMS: 10 point review of systems negative unless otherwise specified in HPI PHYSICAL EXAMINATION: VITAL SIGNS: Please see below. GENERAL APPEARANCE: . Awake, alert, oriented, in no acute distress HEENT: . Normocephalic, atraumatic RESPIRATORY: . Clear to auscultation bilaterally CARDIOVASCULAR: . Normal rate, normal rhythm ABDOMEN: . Soft, nontender, nondistended EXTREMITIES: . No swelling, no erythema, no tenderness LABORATORY DATA: Please see below. ASSESSMENT/PLAN: History of type I DM on insulin pump therapy, Hyperglycemia likely secondary to prednisone use Initial blood sugar level noted to be 426 in the ER Status post insulin bolus via the patient's insulin pump Repeat blood sugar level noted to be 168 Patient noted to be euvolemic, hemodynamically stable, and laboratory values noted to be satisfactory with no anion gap Patient advised to follow-up with his energy efficiency specialist Dr. Kuhn, with whom he has a scheduled appointment with on 07/11/2016 for further titration of his insulin dosing Temporal arteritis Follows with rheumatology as an outpatient, most recently seen 2 weeks ago Continue prednisone as previously prescribed Leukocytosis likely secondary to steroid use The patient has a white blood cell count of 13K, however is noted to be afebrile , and hemodynamically stable Of note, upon reviewing the patient's labs, he has noted to have chronic leukocytosis dating back to May 2016 which can be attributed to his steroid use No active source of infection identified at this time Hypertension, stable Continue current regimen Dyslipidemia Continue statin Chronic kidney disease stage III Patient's serum creatinine appears to be at baseline Hyperkalemia noted on routine lab work as an outpatient Serum potassium noted to be within normal limits here Disposition-given the patient's stable electrolytes on presentation which he was initially referred to the ER for, and normalization of his glucose levels in the ER, the patient is medically stable to be discharged home at this time. I have discussed these findings with the patient, who is eager to return home as he does have follow-up appointments that he needs to attend. At this time, it does not appear that the patient has any active medical issues that require inpatient hospitalization. I have also discussed these findings with the patient 's medical provider in the ER, Shu Hernandez PA-C, who agrees with the above assessment. I have advised the patient to return to the ER should his blood sugar levels become uncontrolled at home, or if he is to have any other medical emergency. Vital Signs/I&O Vital Signs Date Time Temp Pulse Resp B/P Pulse Ox O2 Delivery O2 Flow Rate FiO2 07/08/16 12:12 97.8 76 20 140/80 98 07/08/16 10:24 Room Air Laboratory Data Labs 24H Laboratory Tests 2 07/08/16 09:19: Blood Urea Nitrogen 27H, Creatinine 1.31H, Sodium Level 136, Potassium Level 4.1 , Chloride Level 103, Carbon Dioxide Level 25, Calcium Level 7.8#L, Aspartate Amino Transf (AST/SGOT) 18, Alanine Aminotransferase (ALT/SGPT) 38, Alkaline Phosphatase 73, Total Bilirubin 0.2, Total Protein 6.0L, Albumin 3.0L, Albumin/ Globulin Ratio 1.00, Anion Gap 8, White Blood Count 13.1H, Red Blood Count 2.94L , Hemoglobin 9.6L, Hematocrit 28.9L, Mean Corpuscular Volume 98.1H, Mean Corpuscular Hemoglobin 32.6, Mean Corpuscular Hemoglobin Concent 33.2, Red Cell Distribution Width 13.8, Platelet Count 234, Neutrophils (%) (Auto) 81.6H, Lymphocytes (%) (Auto) 11.1L, Monocytes (%) (Auto) 6.1H, Eosinophils (%) (Auto) 0.2, Basophils (%) (Auto) 0.1, Neutrophils # (Auto) 10.7H, Lymphocytes # (Auto) 1.5, Monocytes # (Auto) 0.8, Eosinophils # (Auto) 0.0, Basophils # (Auto) 0.0, Glomerular Filtration Rate > 60.0, Large Unclassified Cells # 0.1, Large Unclassified Cells % 0.9 CBC/BMP Laboratory Tests 07/08/16 09:19 Calcium Level 7.8 #L, Aspartate Amino Transf (AST/SGOT) 18, Alanine Aminotransferase (ALT/SGPT) 38, Alkaline Phosphatase 73, Total Bilirubin 0.2, Total Protein 6.0 L, Albumin 3.0 L, Red Blood Count 2.94 L, Mean Corpuscular Volume 98.1 H, Mean Corpuscular Hemoglobin 32.6, Mean Corpuscular Hemoglobin Concent 33.2, Red Cell Distribution Width 13.8, Neutrophils (%) (Auto) 81.6 H, Lymphocytes (%) (Auto) 11.1 L, Monocytes (%) (Auto) 6.1 H, Eosinophils (%) (Auto ) 0.2, Basophils (%) (Auto) 0.1, Neutrophils # (Auto) 10.7 H, Lymphocytes # ( Auto) 1.5, Monocytes # (Auto) 0.8, Eosinophils # (Auto) 0.0, Basophils # (Auto) 0.0 Allergies Coded Allergies: No Known Allergies (Unverified , 07/05/16) Home Medications Scheduled Amoxicillin/Clavulanate Potas (Augmentin 875-125 mg) 1 Tab Tab #20 875 MG PO BID Prednisone (Prednisone) 20 Mg Tab #60 2 TAB PO DAILY (Reported) Miscellaneous Medications Amlodipine Besylate (Amlodipine Besylate) 5 Mg Tab #30 (Reported) Atorvastatin Calcium (Atorvastatin Calcium) 40 Mg Tab #30 (Reported) Citalopram Hydrobromide (Citalopram Hydrobromide) 40 Mg Tab #90 (Reported) Insulin Aspart (Novolog) 100 U/Ml Inj #30 (Reported) Lisinopril (Lisinopril) 10 Mg Tab #30 (Reported) Omeprazole (Omeprazole) 20 Mg Cap #30 (Reported) Timolol Maleate (Timolol Maleate 0.25% Opth GFS) 100 Drop/5 Ml Darlyn #20 ( Reported) Trimethoprim/Sulfamethoxazole (Sulfamethoxazole/Trimetho 400-80 mg) 1 Ea Tab # 60 (Reported) CONCETTA HAYNES MD Jul 08, 2016 14:50
--- NOTE | 2016-07-09 20:50 | ECGEPIP ---
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
== END 2016-07-08 12:14 | disposition home or self-care (01) ==
LOC: M ED 09:40
DX: E11.65 Type 2 diabetes mellitus with hyperglycemia (principal); J01.90 Acute sinusitis, unspecified; M31.6 Other giant cell arteritis; K02.9 Dental caries, unspecified
CPT/HCPCS: 36415; 80053; 85025; 93005; 96374; 96375; 99283; J1885; J2405

== ENCOUNTER 2016-07-12 15:19 | Emergency (ER) | payer MEDICARE, MEDICAID ==
[~2016-07-12] VITALS: Ht 175.3 cm; Wt 69.9 kg
[~2016-07-12 15:19] MED LIST changes: +AUGM875T27 PO
[2016-07-12 15:20] VITALS: BP 107/66
[2016-07-12] MEDS ORDERED: ASPI81TA85 PO (15:28)
== END 2016-07-12 17:34 | disposition left against medical advice (07) ==
LOC: M ED 17:27
DX: Z53.21 Procedure and treatment not carried out due to patient leaving prior to being seen by health care provider (principal)

== ENCOUNTER 2016-07-13 15:48 | Emergency (ER) | payer MEDICARE, MEDICAID ==
[~2016-07-13] VITALS: Ht 175.3 cm; Wt 70.3 kg
[2016-07-13] MEDS ORDERED: NS 1,000 ML IV ONE (17:45)
[2016-07-13 19:10] LABS: BASO % 0.1 % (0.0-1.0); EOS % 0.4 % (0.0-3.0); LARGE UNSTAINED CELL # 0.1 K/mm3 (0.0-0.4); LARGE UNSTAINED CELL % 0.4 % (0.0-4.0); LYMPH # 1.2 K/mm3 (1.5-4.5); LYMPH % 9.4 % (24.0-44.0); MEAN CORPUSCULAR HEMOGLOBIN 32.6 pg (27.0-33.0); MEAN CORPUSCULAR HGB CONC 34.3 g/dl (32.0-36.5); MEAN CORPUSCULAR VOLUME 94.8 fl (80.0-96.0); MONO # 0.4 K/mm3 (0.0-0.8); MONO % 3.3 % (0.0-5.0); NEUTROPHILS # 10.9 K/mm3 (1.8-7.7); NEUTROPHILS % 86.5 % (36.0-66.0); PLATELET COUNT, AUTOMATED 249 k/mm3 (150-450); RED CELL DISTRIBUTION WIDTH 14.1 % (11.5-14.5); WHITE BLOOD COUNT 12.7 K/mm3 (4.0-10.0)
[2016-07-13 19:21] LABS: INR 0.9
[2016-07-13 19:33] LABS: ALBUMIN 3.2 GM/DL (3.2-5.2); ALBUMIN/GLOBULIN RATIO 1.1 (1.00-1.93); BILIRUBIN,DIRECT 0.1 MG/DL (0.0-0.2); BILIRUBIN,TOTAL 0.3 MG/DL (0.2-1.0); CALCIUM LEVEL 8.9 MG/DL (8.5-10.1); CREATININE FOR GFR 1.37 MG/DL (0.70-1.30); GLOMERULAR FILTRATION RATE 57.2 (>56); TOTAL PROTEIN 6.1 GM/DL (6.4-8.2)
[2016-07-13 19:36] LABS: POTASSIUM SERUM 5.3 MEQ/L (3.5-5.1)
[2016-07-13] MEDS ORDERED: PANTOPRAZOLE 40MG INJ (PROTONIX) (C9113) IV ONE (20:30)
--- NOTE | 2016-07-13 22:20 | REPUSA ---
CT of the abdomen and pelvis without contrast Clinical statement: Pain. Technique: Multiple axial CT images were obtained from the base of the lungs to the floor of the pelv is utilizing 5 mm axial slices without administration of contrast. Coronal and sagittal reconstructio ns were also obtained. No comparison is available. Findings: Chest: The visualized lung bases are clear. Abdomen: The kidneys are normal in size bilaterally. There is no evidence of hydronephrosis. There is extensive bilateral nephrolithiasis, with stones measuring up to 8 mm in diameter. The liver, spleen , pancreas, gallbladder and adrenal glands are unremarkable. The aorta demonstrates moderate atherosc lerosis with normal caliber and contour. There is no abdominal lymphadenopathy or ascites. Pelvis: Moderate amount of stool fills the colon.The bowel is otherwise unremarkable, with no obstr uctive or inflammatory changes. The appendix is normal. The urinary bladder is within normal limits. There is no pelvic lymphadenopathy or ascites. The other pelvic structures appear unremarkable. Bones: There are no suspicious osseous abnormalities seen. Impression: 1. Extensive bilateral nephrolithiasis without evidence of hydronephrosis. 2. Moderate constipation. No obstructive or inflammatory bowel changes.
[2016-07-13 22:45] VITALS: BP 137/84
--- NOTE | 2016-07-17 06:13 | ED PDOC ---
Post-Departure Follow-Up called patient 07/14/16 in follow up. patient reported feeling much better. lightheadedness resolved. no pain. reported brown, normal appearing bowel movements. was in the process on contacted PCP Dr. Hassan for follow up visit from MICHA MCGUIRE PA-C. Jul 17, 2016 06:13
== END 2016-07-13 23:03 | disposition home or self-care (01) ==
LOC: M ED 16:54
DX: R10.13 Epigastric pain (principal); M31.6 Other giant cell arteritis; Z87.891 Personal history of nicotine dependence; E78.00 Pure hypercholesterolemia, unspecified; I10 Essential (primary) hypertension; E11.9 Type 2 diabetes mellitus without complications; F41.9 Anxiety disorder, unspecified; F32.9 Major depressive disorder, single episode, unspecified; K59.00 Constipation, unspecified; N20.0 Calculus of kidney; Z79.82 Long term (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; Z79.899 Other long term (current) drug therapy; Z79.4 Long term (current) use of insulin
CPT/HCPCS: 36415; 74176; 80053; 81001; 82150; 83690; 85025; 85610; 85652; 85730; 86140; 86850; 86900; 86901; 96374; 99283; C9113

== ENCOUNTER → 2016-07-13 | Outpatient (CLI) | payer MEDICARE, MEDICAID ==
[~2016-07-13] MED LIST changes: +ASPI81TA85 PO
[2016-07-13 17:02] LABS: BASO % 0.1 % (0.0-1.0); EOS # 0.1 K/mm3 (0.0-0.50); EOS % 0.4 % (0.0-3.0); LARGE UNSTAINED CELL % 0.3 % (0.0-4.0); LYMPH # 1.2 K/mm3 (1.5-4.5); LYMPH % 7.7 % (24.0-44.0); MEAN CORPUSCULAR HEMOGLOBIN 32.1 pg (27.0-33.0); MEAN CORPUSCULAR HGB CONC 33.5 g/dl (32.0-36.5); MEAN CORPUSCULAR VOLUME 95.8 fl (80.0-96.0); MONO # 0.8 K/mm3 (0.0-0.8); MONO % 5.4 % (0.0-5.0); NEUTROPHILS # 13.1 K/mm3 (1.8-7.7); NEUTROPHILS % 86.1 % (36.0-66.0); PLATELET COUNT, AUTOMATED 295 k/mm3 (150-450); RED CELL DISTRIBUTION WIDTH 14.2 % (11.5-14.5); WHITE BLOOD COUNT 15.2 K/mm3 (4.0-10.0)
[2016-07-13 17:34] LABS: ALBUMIN 3.3 GM/DL (3.2-5.2); ALBUMIN/GLOBULIN RATIO 1.18 (1.00-1.93); ALKALINE PHOSPHATASE 76 U/L (45-117); ALT/SGPT 45 U/L (12-78); ANION GAP 6 MEQ/L (8-16); AST/SGOT 29 U/L (15-37); BILIRUBIN,TOTAL 0.4 MG/DL (0.2-1.0); BLOOD UREA NITROGEN 34 MG/DL (7-18); CARBON DIOXIDE LEVEL 29 MEQ/L (21-32); CHLORIDE LEVEL 101 MEQ/L (98-107); CREATININE FOR GFR 1.47 MG/DL (0.70-1.30); GLOMERULAR FILTRATION RATE 52.8 (>56); GLUCOSE, FASTING 250 MG/DL (70-105); SODIUM LEVEL 136 MEQ/L (136-145); TOTAL PROTEIN 6.1 GM/DL (6.4-8.2)
[2016-07-13 17:45] LABS: POTASSIUM SERUM 5.3 MEQ/L (3.5-5.1)
[2016-07-13 18:06] LABS: ERYTHROCYTE SEDIMENTATION RATE 11 mm/hr (0-20)
== END ==
LOC: M LRY 15:12
PROVIDERS: ATTEND Nurse Practitioner Family
DX: M31.6 Other giant cell arteritis (principal)

== ENCOUNTER → 2016-07-21 | Outpatient (CLI) | payer MEDICARE, MEDICAID ==
--- NOTE | 2016-07-24 08:58 | REP ---
CT IACS WITHOUT CONTRAST: HISTORY: Left cholesteatoma. The internal auditory canals, cochleas, vestibules and semicircular canals are normal in appearance. The ossicles are normal in configuration and position. The scutum and tegmen are intact. The middle ear cavities and mastoid air cells are clear. The sinuses are clear. The nasopharynx is normal in appearance. IMPRESSION: Normal CT IACs. Signed by Manoj Curtis MD 07/24/2016 09:05 A
== END ==
LOC: M RAD 17:18
PROVIDERS: ATTEND Family Medicine
DX: H71.92 Unspecified cholesteatoma, left ear (principal)

== ENCOUNTER → 2016-08-09 | Outpatient (CLI) | payer MEDICARE, MEDICAID ==
[2016-08-09 18:37] LABS: ALBUMIN 3.2 GM/DL (3.2-5.2); ALBUMIN/GLOBULIN RATIO 1.03 (1.00-1.93); BILIRUBIN,TOTAL 0.3 MG/DL (0.2-1.0); CREATININE FOR GFR 1.35 MG/DL (0.70-1.30); POTASSIUM SERUM 4.1 MEQ/L (3.5-5.1); TOTAL PROTEIN 6.3 GM/DL (6.4-8.2)
[2016-08-09 19:48] LABS: BASO % 0.4 % (0.0-1.0); EOS # 0.1 K/mm3 (0.0-0.50); EOS % 0.9 % (0.0-3.0); LYMPH # 1.9 K/mm3 (1.5-4.5); LYMPH % 17.3 % (24.0-44.0); MEAN CORPUSCULAR HEMOGLOBIN 32.4 pg (27.0-33.0); MEAN CORPUSCULAR HGB CONC 33.1 g/dl (32.0-36.5); MEAN CORPUSCULAR VOLUME 97.8 fl (80.0-96.0); MONO # 0.6 K/mm3 (0.0-0.8); MONO % 5.6 % (0.0-5.0); RED CELL DISTRIBUTION WIDTH 13.1 % (11.5-14.5); WHITE BLOOD COUNT 10.7 K/mm3 (4.0-10.0)
== END ==
LOC: M LRY 11:59
PROVIDERS: ATTEND Nurse Practitioner Family
DX: M31.6 Other giant cell arteritis (principal)

== ENCOUNTER 2016-08-26 16:01 | Emergency (ER) | payer MEDICARE, MEDICAID ==
[2016-08-26] MEDS ORDERED: FLON1SPR (16:17)
[2016-08-26] MEDS ORDERED: GLUC1CAP10 PO (16:17)
[2016-08-26] MEDS ORDERED: METH-107 PO (16:17)
[2016-08-26] MEDS ORDERED: KETOROLAC 30 MG/ML VIAL (J1885) IV ONE (16:45)
[2016-08-26] MEDS ORDERED: NS 500 ML IV ONE (16:45)
[2016-08-26] MEDS ORDERED: PROMETHAZINE INJ 25 MG/ML VIAL (J2550) IM ONE (16:45)
[2016-08-26 17:00] LABS: ALBUMIN 3.3 GM/DL (3.2-5.2); ALBUMIN/GLOBULIN RATIO 0.97 (1.00-1.93); BILIRUBIN,DIRECT 0.2 MG/DL (0.0-0.2); BILIRUBIN,TOTAL 0.6 MG/DL (0.2-1.0); CALCIUM LEVEL 9.2 MG/DL (8.5-10.1); CREATININE FOR GFR 1.4 MG/DL (0.70-1.30); GLOMERULAR FILTRATION RATE 55.6 (>56); POTASSIUM SERUM 4.2 MEQ/L (3.5-5.1); TOTAL PROTEIN 6.7 GM/DL (6.4-8.2)
[2016-08-26 17:06] LABS: INR 0.88
[2016-08-26 17:14] LABS: BASO % 0.3 % (0.0-1.0); EOS # 0.1 K/mm3 (0.0-0.50); LARGE UNSTAINED CELL # 0.1 K/mm3 (0.0-0.4); LYMPH # 2.7 K/mm3 (1.5-4.5); MEAN CORPUSCULAR HEMOGLOBIN 32.6 pg (27.0-33.0); MEAN CORPUSCULAR HGB CONC 34.4 g/dl (32.0-36.5); MEAN CORPUSCULAR VOLUME 94.8 fl (80.0-96.0); MONO # 0.7 K/mm3 (0.0-0.8); NEUTROPHILS # 8.7 K/mm3 (1.8-7.7); NEUTROPHILS % 69.8 % (36.0-66.0); PLATELET COUNT, AUTOMATED 268 k/mm3 (150-450); RED CELL DISTRIBUTION WIDTH 12.9 % (11.5-14.5); WHITE BLOOD COUNT 12.4 K/mm3 (4.0-10.0)
--- NOTE | 2016-08-26 17:22 | REP ---
Clinical: Abdominal pain with nausea and vomiting. Technique: Two supine views of the abdomen and pelvis. Findings: Fecal stasis and possible constipation cannot be excluded. No evidence for bowel obstruction or obvious perforation. No organomegaly. Skeletal structures demonstrate age-related changes. Small renal calculi measuring up to approximately 4 mm bilaterally cannot be excluded. Impression: 1. Possible fecal stasis and constipation without evidence for obstruction or perforation. 2. Bilateral nephrolithiasis suggested. Signed by Sandeep Patino MD 08/26/2016 05:14 P
[2016-08-26] MEDS ORDERED: MORPHINE 4 MG/ML 1ML SYRINGE IV ONE (18:30)
[2016-08-26 21:40] VITALS: BP 107/68
== END 2016-08-26 21:42 | disposition home or self-care (01) ==
LOC: EDBD 16:01 → M ED 17:17
DX: R51 Headache (principal); E11.649 Type 2 diabetes mellitus with hypoglycemia without coma; R93.5 Abnormal findings on diagnostic imaging of other abdominal regions, including retroperitoneum; I10 Essential (primary) hypertension; M31.6 Other giant cell arteritis; Z87.891 Personal history of nicotine dependence; Z79.82 Long term (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; Z79.899 Other long term (current) drug therapy; Z79.4 Long term (current) use of insulin
CPT/HCPCS: 74000; 80048; 80076; 82150; 83690; 85025; 85610; 85730; 96372; 96374; 96375; 99283; J1885

== ENCOUNTER 2016-08-29 13:30 | Emergency (ER) | payer MEDICARE, MEDICAID ==
[~2016-08-29] VITALS: Ht 175.3 cm; Wt 69.9 kg
[~2016-08-29 13:30] MED LIST changes: +FLON1SPR; +GLUC1CAP10 PO; +METH-107 PO
[2016-08-29] MEDS ORDERED: PRED5TA (13:52)
[2016-08-29] MEDS ORDERED: BACL-67 (13:52)
[2016-08-29] MEDS ORDERED: GAVISOL3 (13:52)
[2016-08-29] MEDS ORDERED: SULF1TAB72 (13:52)
[2016-08-29] MEDS ORDERED: ONDANSETRON 4MG/2ML VIAL (J2405) IV ONE (14:15)
[2016-08-29] MEDS ORDERED: NS 1,000 ML IV ONE ×2 (14:15→16:30)
[2016-08-29] MEDS ORDERED: KETOROLAC 30 MG/ML VIAL (J1885) IV ONE (14:15)
--- NOTE | 2016-08-29 15:01 | REP ---
ABDOMEN, FLAT UPRIGHT, AP CHEST THREE VIEWS: HISTORY: Abdominal pain. COMPARISON: 08/26/2016 Air is present in small and large intestine. There are no air fluid levels or dilated loops of intestine. There is no pneumoperitoneum. Bilateral nephrolithiasis is present. The lungs are clear. IMPRESSION: Nonspecific gas pattern. Signed by Manoj Curtis MD 08/29/2016 03:12 P
[2016-08-29 16:34] LABS: BASO % 0.2 % (0.0-1.0); EOS # 0.1 K/mm3 (0.0-0.50); EOS % 0.8 % (0.0-3.0); LARGE UNSTAINED CELL # 0.1 K/mm3 (0.0-0.4); LARGE UNSTAINED CELL % 0.9 % (0.0-4.0); LYMPH # 1.5 K/mm3 (1.5-4.5); LYMPH % 14.6 % (24.0-44.0); MEAN CORPUSCULAR HEMOGLOBIN 32.8 pg (27.0-33.0); MEAN CORPUSCULAR HGB CONC 35.4 g/dl (32.0-36.5); MEAN CORPUSCULAR VOLUME 92.7 fl (80.0-96.0); MONO # 0.7 K/mm3 (0.0-0.8); MONO % 7.2 % (0.0-5.0); NEUTROPHILS # 7.8 K/mm3 (1.8-7.7); NEUTROPHILS % 76.3 % (36.0-66.0); PLATELET COUNT, AUTOMATED 246 k/mm3 (150-450); RED CELL DISTRIBUTION WIDTH 12.6 % (11.5-14.5); WHITE BLOOD COUNT 10.2 K/mm3 (4.0-10.0)
[2016-08-29 16:39] LABS: ALBUMIN 2.8 GM/DL (3.2-5.2); ALKALINE PHOSPHATASE 80 U/L (45-117); ALT/SGPT 34 U/L (12-78); ANION GAP 7 MEQ/L (8-16); AST/SGOT 25 U/L (15-37); BILIRUBIN,DIRECT 0.2 MG/DL (0.0-0.2); BILIRUBIN,TOTAL 0.7 MG/DL (0.2-1.0); BLOOD UREA NITROGEN 17 MG/DL (7-18); CALCIUM LEVEL 7.6 MG/DL (8.5-10.1); CARBON DIOXIDE LEVEL 27 MEQ/L (21-32); CHLORIDE LEVEL 101 MEQ/L (98-107); GLOMERULAR FILTRATION RATE > 60.0 (>56); GLUCOSE, FASTING 127 MG/DL (70-105); POTASSIUM SERUM 3.6 MEQ/L (3.5-5.1); SODIUM LEVEL 135 MEQ/L (136-145); TOTAL PROTEIN 5.6 GM/DL (6.4-8.2)
[2016-08-29] MEDS ORDERED: ZOFR4TAB3 PO (16:59)
[2016-08-29 17:26] VITALS: BP 156/77
--- NOTE | 2016-08-29 20:46 | ECGEPIP ---
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
== END 2016-08-29 17:41 | disposition home or self-care (01) ==
LOC: M ED 15:27
DX: R11.2 Nausea with vomiting, unspecified (principal); E11.9 Type 2 diabetes mellitus without complications; I10 Essential (primary) hypertension; E78.5 Hyperlipidemia, unspecified; K21.9 Gastro-esophageal reflux disease without esophagitis; Z87.891 Personal history of nicotine dependence; Z82.49 Family history of ischemic heart disease and other diseases of the circulatory system; Z79.82 Long term (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; Z79.4 Long term (current) use of insulin; Z79.899 Other long term (current) drug therapy; Z79.52 Long term (current) use of systemic steroids
CPT/HCPCS: 36415; 74022; 80048; 80076; 83690; 85025; 93005; 93041; 96361; 96374; 96375; 99285; G0480; J1885; J2405

== ENCOUNTER → 2016-09-05 | Outpatient (REF) | payer MEDICARE, MEDICAID ==
[~2016-09-05] MED LIST changes: +ADVO31MI2 XX; +ADVOKIT XX; +ADVOMIS4 XX; -AMLO5TAB2; +AMLO5TAB2 PO; +ASPI81TA24 PO; -ATOR40TA; +ATOR40TA75 PO; -AUGM875T27 PO; +AUGM875T28 PO; +BACL1TAB9; +CAPT62TA PO; +CELE20TA PO; -CITA40TA4; +CITA40TA4 PO; +CYCL5TAB PO; +DORZ2SOL5 OU; +DORZOL/TIMOL; +ELIQ5TAB PO; +GAVISOL3; +GLUC1KIT INJ; +INSUDET SC; -INSUH10VL; +INSUH10VL SC; +INSUHUMDS SC; +KPHOS50TA PO; +LANS15CA PO; +LATA5OPD OU; -LISI10TA4; +LISI10TA4 PO; +MAXA5TAB10 PO; -METH-107 PO; +METH1TAB40 PO; +MIDO2.5T PO; +OMEP20CA3 PO; +OMEP40CA2 PO; +PANT40TA2 PO; +PRED5TA; +PROT1TAB2 PO; +RIZA5TAB PO; +SULF1TAB72 PO; +TYLE500T78 PO; +ZOFR4TAB3 PO
[2016-09-06 11:33] LABS: ADD MANUAL DIFFER YES; MEAN CORPUSCULAR HEMOGLOBIN 31.7 pg (27.0-33.0); MEAN CORPUSCULAR HGB CONC 33.5 g/dl (32.0-36.5); MEAN CORPUSCULAR VOLUME 94.5 fl (80.0-96.0); PLATELET COUNT, AUTOMATED 386 k/mm3 (150-450); RED CELL DISTRIBUTION WIDTH 13.1 % (11.5-14.5); WHITE BLOOD COUNT 8.9 K/mm3 (4.0-10.0)
[2016-09-06 11:46] LABS: ALBUMIN 3.3 GM/DL (3.2-5.2); ALKALINE PHOSPHATASE 92 U/L (45-117); ALT/SGPT 45 U/L (12-78); AMYLASE 74 U/L (25-115); ANION GAP 10 MEQ/L (8-16); AST/SGOT 28 U/L (15-37); BILIRUBIN,TOTAL 0.6 MG/DL (0.2-1.0); BLOOD UREA NITROGEN 10 MG/DL (7-18); CALCIUM LEVEL 8.6 MG/DL (8.5-10.1); CARBON DIOXIDE LEVEL 24 MEQ/L (21-32); CHLORIDE LEVEL 103 MEQ/L (98-107); CREATININE FOR GFR 1.08 MG/DL (0.70-1.30); FREE T4 1.12 NG/DL (0.76-1.46); GLOMERULAR FILTRATION RATE > 60.0 (>56); GLUCOSE, FASTING 143 MG/DL (70-105); POTASSIUM SERUM 4.6 MEQ/L (3.5-5.1); SODIUM LEVEL 137 MEQ/L (136-145); TOTAL PROTEIN 6.3 GM/DL (6.4-8.2)
[2016-09-06 11:59] LABS: ERYTHROCYTE SEDIMENTATION RATE 19 mm/hr (0-20)
== END ==
LOC: M SFHCLERA 14:32
PROVIDERS: ATTEND Family Medicine
DX: R51 Headache (principal); R19.7 Diarrhea, unspecified; R11.2 Nausea with vomiting, unspecified; Z79.899 Other long term (current) drug therapy
CPT/HCPCS: 74022; 80053; 81001; 82150; 83690; 84439; 84443; 85025; 85652; 87086; G0463

== ENCOUNTER → 2016-09-05 | Outpatient (CLI) | payer MEDICARE, MEDICAID ==
[~2016-09-05] MED LIST changes: -ADVO31MI2 XX; -ADVOKIT XX; -ADVOMIS4 XX; +AMLO5TAB2; -AMLO5TAB2 PO; -ASPI81TA24 PO; +ATOR40TA; -ATOR40TA75 PO; +AUGM875T27 PO; -AUGM875T28 PO; +BACL-67; -BACL1TAB9; -CAPT62TA PO; -CELE20TA PO; +CITA40TA4; -CITA40TA4 PO; -CYCL5TAB PO; -DORZ2SOL5 OU; -DORZOL/TIMOL; -ELIQ5TAB PO; -GLUC1KIT INJ; -INSUDET SC; +INSUH10VL; -INSUH10VL SC; -INSUHUMDS SC; -KPHOS50TA PO; -LANS15CA PO; -LATA5OPD OU; +LISI10TA4; -LISI10TA4 PO; -MAXA5TAB10 PO; +METH-107 PO; -METH1TAB40 PO; -MIDO2.5T PO; -OMEP20CA3 PO; -OMEP40CA2 PO; -PANT40TA2 PO; -PROT1TAB2 PO; -RIZA5TAB PO; -SULF1TAB72 PO; -TYLE500T78 PO
--- NOTE | 2016-09-05 17:14 | REP ---
Abdominal series: Five views: History: Vomiting and nausea. 10 days. Comparison study 08/29/2016. Findings: Upright chest radiograph shows no evidence of infiltrate or free subdiaphragmatic air. Bibasilar interstitial markings are slightly prominent as before. Heart is not enlarged. Supine and erect views of the abdomen show air and stool in a nondistended colon. No small or large bowel dilation is seen. No significant air fluid level is noted. Vascular calcification is visible. No mass, organomegaly, or pathologic calcification seen. Impression: Unremarkable bowel gas pattern. Signed by Terrell Pichardo MD 09/05/2016 05:24 P
== END ==
LOC: M LRY 14:38
PROVIDERS: ATTEND Family Medicine
DX: R11.2 Nausea with vomiting, unspecified (principal); R51 Headache; R19.7 Diarrhea, unspecified; Z79.899 Other long term (current) drug therapy

== ENCOUNTER → 2016-09-11 | Outpatient (REF) | payer MEDICARE, MEDICAID | LOC: M SFHCLERA 17:33 | PROVIDERS: ATTEND Family Medicine | DX: R19.7 Diarrhea, unspecified (principal) ==

== ENCOUNTER → 2016-09-26 | Outpatient (CLI) | payer MEDICARE, MEDICAID ==
[2016-09-26 18:28] LABS: ALBUMIN 3.2 GM/DL (3.2-5.2); BILIRUBIN,TOTAL 0.3 MG/DL (0.2-1.0); CALCIUM LEVEL 8.6 MG/DL (8.5-10.1); CREATININE FOR GFR 1.38 MG/DL (0.70-1.30); GLOMERULAR FILTRATION RATE 56.5 (>56); TOTAL PROTEIN 6.4 GM/DL (6.4-8.2)
[2016-09-26 19:46] LABS: BASO % 0.2 % (0.0-1.0); EOS % 0.2 % (0.0-3.0); LARGE UNSTAINED CELL % 0.4 % (0.0-4.0); LYMPH # 0.9 K/mm3 (1.5-4.5); LYMPH % 10.3 % (24.0-44.0); MEAN CORPUSCULAR HEMOGLOBIN 31.5 pg (27.0-33.0); MEAN CORPUSCULAR HGB CONC 31.4 g/dl (32.0-36.5); MEAN CORPUSCULAR VOLUME 100.1 fl (80.0-96.0); MONO # 0.3 K/mm3 (0.0-0.8); MONO % 3.5 % (0.0-5.0); NEUTROPHILS # 7.5 K/mm3 (1.8-7.7); NEUTROPHILS % 85.4 % (36.0-66.0); PLATELET COUNT, AUTOMATED 291 k/mm3 (150-450); RED CELL DISTRIBUTION WIDTH 12.9 % (11.5-14.5); WHITE BLOOD COUNT 8.8 K/mm3 (4.0-10.0)
[2016-09-26 19:48] LABS: POTASSIUM SERUM 5.2 MEQ/L (3.5-5.1)
[2016-09-26 22:09] LABS: ERYTHROCYTE SEDIMENTATION RATE 16 mm/hr (0-20)
== END ==
LOC: M LRY 13:26
PROVIDERS: ATTEND Nurse Practitioner Family
DX: M31.6 Other giant cell arteritis (principal)

== ENCOUNTER → 2016-10-13 | Outpatient (REF) | payer MEDICARE, MEDICAID ==
[~2016-10-13] MED LIST changes: +ADVO31MI2 XX; +ADVOKIT XX; +ADVOMIS4 XX; -AMLO5TAB2; +AMLO5TAB2 PO; +ASPI81TA24 PO; -ATOR40TA; +ATOR40TA75 PO; -AUGM875T27 PO; +AUGM875T28 PO; -BACL-67; +BACL1TAB9; +CAPT62TA PO; +CELE20TA PO; -CITA40TA4; +CITA40TA4 PO; +CYCL5TAB PO; +DORZ2SOL5 OU; +DORZOL/TIMOL; +ELIQ5TAB PO; +GLUC1KIT INJ; +INSUDET SC; -INSUH10VL; +INSUH10VL SC; +INSUHUMDS SC; +KPHOS50TA PO; +LANS15CA PO; +LATA5OPD OU; -LISI10TA4; +LISI10TA4 PO; +MAXA5TAB10 PO; -METH-107 PO; +METH1TAB40 PO; +MIDO2.5T PO; +OMEP20CA3 PO; +OMEP40CA2 PO; +PANT40TA2 PO; +PROT1TAB2 PO; +RIZA5TAB PO; +SULF1TAB72 PO; +TYLE500T78 PO
[2016-10-13 20:38] LABS: ANION GAP 6 MEQ/L (8-16); BLOOD UREA NITROGEN 24 MG/DL (7-18); CALCIUM LEVEL 9.4 MG/DL (8.5-10.1); CARBON DIOXIDE LEVEL 28 MEQ/L (21-32); CHLORIDE LEVEL 99 MEQ/L (98-107); CHOLESTEROL LEVEL 175 MG/DL (<200); GLOMERULAR FILTRATION RATE > 60.0 (>56); GLUCOSE, FASTING 273 MG/DL (70-105); SODIUM LEVEL 133 MEQ/L (136-145); TRIGLYCERIDES LEVEL 80 MG/DL (<150)
[2016-10-13 20:43] LABS: POTASSIUM SERUM 5.2 MEQ/L (3.5-5.1)
== END ==
LOC: M SFHCLERA 11:23
PROVIDERS: ATTEND Family Medicine
DX: E10.40 Type 1 diabetes mellitus with diabetic neuropathy, unspecified (principal); I10 Essential (primary) hypertension

== ENCOUNTER 2016-10-16 14:29 | Emergency (ER) | payer MEDICARE, MEDICAID ==
[~2016-10-16] VITALS: Ht 175.3 cm; Wt 73.2 kg
[~2016-10-16 14:29] MED LIST changes: -ADVO31MI2 XX; -ADVOKIT XX; -ADVOMIS4 XX; -ASPI81TA24 PO; -CAPT62TA PO; -CELE20TA PO; -CYCL5TAB PO; -DORZ2SOL5 OU; -DORZOL/TIMOL; -ELIQ5TAB PO; -GLUC1KIT INJ; -INSUDET SC; -INSUHUMDS SC; -KPHOS50TA PO; -LANS15CA PO; -LATA5OPD OU; -MAXA5TAB10 PO; -MIDO2.5T PO; -OMEP20CA3 PO; -OMEP40CA2 PO; -PANT40TA2 PO; -PROT1TAB2 PO; -RIZA5TAB PO; -TYLE500T78 PO
[2016-10-16] MEDS ORDERED: NS 500 ML IV ONE (16:15)
[2016-10-16] MEDS ORDERED: METOCLOPRAMIDE INJ 10MG/2ML VIAL (J2765) IV ONE (16:15)
--- NOTE | 2016-10-16 17:04 | REP ---
CT Head without contrast HISTORY: Headache COMPARISON: 12/05/2015 Areas of decreased attenuation are present in the periventricular and subcortical white matter. This represents small-vessel ischemic disease. There is no intraparenchymal hemorrhage, acute infarct, mass or midline shift. The ventricular system and cortical sulci are dilated consistent with minimal volume loss. There is no extra cerebral collection. There is no fracture. The visualized sinuses are clear. IMPRESSION: 1. Small vessel ischemic disease. 2. Minimal volume loss. Signed by Manoj Crutis MD 10/16/2016 04:55 P
[2016-10-16 17:14] LABS: BASO % 0.1 % (0.0-1.0); EOS # 0.1 K/mm3 (0.0-0.50); EOS % 0.5 % (0.0-3.0); LARGE UNSTAINED CELL # 0.1 K/mm3 (0.0-0.4); LARGE UNSTAINED CELL % 0.7 % (0.0-4.0); LYMPH # 1.4 K/mm3 (1.5-4.5); MEAN CORPUSCULAR HEMOGLOBIN 31.1 pg (27.0-33.0); MEAN CORPUSCULAR HGB CONC 32.9 g/dl (32.0-36.5); MEAN CORPUSCULAR VOLUME 94.6 fl (80.0-96.0); MONO # 0.6 K/mm3 (0.0-0.8); MONO % 5.3 % (0.0-5.0); NEUTROPHILS # 9.7 K/mm3 (1.8-7.7); NEUTROPHILS % 81.4 % (36.0-66.0); PLATELET COUNT, AUTOMATED 296 k/mm3 (150-450); RED CELL DISTRIBUTION WIDTH 12.8 % (11.5-14.5)
[2016-10-16 17:28] LABS: CALCIUM LEVEL 9.3 MG/DL (8.5-10.1); CREATININE FOR GFR 1.35 MG/DL (0.70-1.30)
[2016-10-16 17:34] LABS: POTASSIUM SERUM 5.7 MEQ/L (3.5-5.1)
[2016-10-16 18:05] LABS: ERYTHROCYTE SEDIMENTATION RATE 1 mm/hr (0-20)
[2016-10-16] MEDS ORDERED: PRED20TA PO (18:24)
[2016-10-16 18:26] VITALS: BP 110/53
[2016-10-16] MEDS ORDERED: SOD POLYSTYRENE SULFONATE SUSP 15 GM/60 ML UD PO ONE (18:30)
--- NOTE | 2016-10-16 19:09 | ECGEPIP ---
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 Order Number: [id number] Reading MD: Lorie Garcia Measurements Intervals [place] Rate: 80 P: 49 RI: 139 QRS: 20 QRSD: 86 T: 15 QT: 360 QTc: 416 Interpretive Statements SINUS RHYTHM SIMILAR 08/29/16 Electronically Signed On 10-16-2016 19:08:50 EDT by Lorie Garcia
== END 2016-10-16 18:33 | disposition home or self-care (01) ==
LOC: M ED 14:29
DX: R51 Headache (principal); E87.5 Hyperkalemia; E87.1 Hypo-osmolality and hyponatremia
CPT/HCPCS: 36415; 70450; 80048; 85025; 85652; 86140; 93005; 96374; 99284; J2765

== ENCOUNTER 2016-10-24 23:42 | Inpatient (IN) | payer MEDICARE, MEDICAID ==
[~2016-10-24] VITALS: Ht 175.3 cm; Wt 75.1 kg
[2016-10-25] VITALS (8 sets, daily range): BP systolic 96–148; BP diastolic 56–80
[2016-10-25] MEDS ORDERED: DEXTROSE 50% 50 ML SYRINGE IV STA ×2 (00:06→01:22)
[2016-10-25] MEDS ORDERED: D10W 1,000 ML IV SCH ×2 (01:30)
[2016-10-25] MEDS ORDERED: dexameTHASONE 20 MG/5 ML VIAL (J1100) IV ONE (03:00)
[2016-10-25 03:51] LABS: BASO % 0.3 % (0.0-1.0); EOS # 0.1 K/mm3 (0.0-0.50); EOS % 0.7 % (0.0-3.0); LARGE UNSTAINED CELL # 0.3 K/mm3 (0.0-0.4); LARGE UNSTAINED CELL % 1.4 % (0.0-4.0); LYMPH # 2.1 K/mm3 (1.5-4.5); LYMPH % 10.2 % (24.0-44.0); MEAN CORPUSCULAR HEMOGLOBIN 30.8 pg (27.0-33.0); MEAN CORPUSCULAR HGB CONC 33.5 g/dl (32.0-36.5); MONO # 1.8 K/mm3 (0.0-0.8); MONO % 9.6 % (0.0-5.0); NEUTROPHILS # 14.2 K/mm3 (1.8-7.7); NEUTROPHILS % 77.8 % (36.0-66.0); PLATELET COUNT, AUTOMATED 360 k/mm3 (150-450); RED CELL DISTRIBUTION WIDTH 13.2 % (11.5-14.5); WHITE BLOOD COUNT 18.3 K/mm3 (4.0-10.0)
[2016-10-25 04:13] LABS: ALBUMIN 3.4 GM/DL (3.2-5.2); ALBUMIN/GLOBULIN RATIO 0.69 (1.00-1.93); BILIRUBIN,DIRECT 0.1 MG/DL (0.0-0.2); BILIRUBIN,TOTAL 0.8 MG/DL (0.2-1.0); CALCIUM LEVEL 9.5 MG/DL (8.5-10.1); CREATININE FOR GFR 1.77 MG/DL (0.70-1.30); GLOMERULAR FILTRATION RATE 42.4 (>56); POTASSIUM SERUM 3.5 MEQ/L (3.5-5.1); TOTAL PROTEIN 8.3 GM/DL (6.4-8.2)
[2016-10-25] MEDS ORDERED: D10W/0.45% SODIUM CHLORIDE 1,000 ML IV SCH ×2 (04:30→06:30)
[2016-10-25] MEDS ORDERED: MAXA5TAB10 PO (04:59)
[2016-10-25] MEDS ORDERED: DORZ2SOL5 OU (04:59)
[2016-10-25] MEDS ORDERED: OMEP20CA3 PO (04:59)
[2016-10-25] MEDS ORDERED: FLUTICASONE PROP 0.05% NASAL SPRAY 16 GM (FLONASE) PRN (05:30)
[2016-10-25] MEDS ORDERED: RIZATRIPTAN BENZOATE 10 MG TAB PO PRN (05:30)
[2016-10-25] MEDS: HEPARIN SOD (PORCINE) 5000 UNITS/ML VIAL SC SCH ×3 (06:00→22:00)
--- NOTE | 2016-10-25 06:14 | HPE ---
DATE OF ADMISSION: 10/25/2016 PRIMARY CARE PROVIDER: Dr. Christelle Hassan. ATTENDING PHYSICIAN: Dr. Garcia. CHIEF COMPLAINT: Low sugar. HISTORY OF PRESENT ILLNESS: The patient is a 56-year-old white male with history of type 1 diabetes on an insulin pump. He presented to the emergency room (ER) for evaluation of low sugar. History is provided by himself as well as by his sister who is with him in the ER. Per patient, he was diagnosed with temporal arteritis about one year ago. For that he is on high-dose prednisone which he said doctor was trying to taper down. Now he is still taking 20 mg of prednisone once a day. In the last week also, he states he was not feeling good and did not eat much, and today he fell in the bathroom and -- was called. His sugar was found to be down to 17. He was given dextrose 50% (D50) in the ambulance and brought to the ER for further evaluation. In the ER, his sugar was found to be down again, and he was given D50 and eventually D10 drip was started due to persistent hypoglycemia. REVIEW OF SYSTEMS: Per sister, he had low-grade fever at home and headache which was chronic related to temporal arteritis. No coughing, no chest pain, no abdominal pain, no tingling, numbness weeks in arms or lower extremities, and he complained of a lot of pain in his low back area he contributed to a fall at home. No nausea, no vomiting or diarrhea. All other systems reviewed were negative. PAST MEDICAL HISTORY: 1. Type 1 diabetes. 2. Hypertension. 3. Dyslipidemia. 4. Temporal arteritis. PAST SURGICAL HISTORY: None. ALLERGIES: No known drug allergies. SOCIAL HISTORY: Denies tobacco use. Denies alcohol abuse. Denies illicit drug abuse. He is not . He has a three kids. He is a F[employer]. FAMILY HISTORY: No family history of diabetes, heart attack or stroke. MEDICATIONS: - prednisone 20 mg by mouth daily - amlodipine 5 mg by mouth daily - Lipitor 40 mg by mouth daily - insulin pump - citalopram 40 mg by mouth daily - lisinopril 10 mg which was discontinued recently - aspirin 81 mg by mouth daily - baclofen 20 mg by mouth daily PHYSICAL EXAMINATION: VITAL SIGNS: Temperature 97.7, heart rate 78, respirations 20, blood pressure 116/58, oxygen saturation 100% on room air. GENERAL: He is awake, alert, oriented times three. He is in moderate acute distress due to low back pain. HEENT: Atraumatic. Pupils equal, round, react to light. No jaundice. Ears, nose, throat normal. Mouth mucus is dry. NECK: No jugular venous distention (JVD). LUNGS: Clear. No wheezing, no crackles. HEART: S1, S2. Regular. No murmur. ABDOMEN: Soft. Bowel sounds positive. Nontender. EXTREMITIES: No edema in bilateral lower extremities. SKIN: No rash. NEUROLOGIC: Nonfocal. He has a lot of tenderness in his low back as well as left flank area, which has scattered muscle pain. PSYCHOLOGIC: No acute psychosis. DIAGNOSTIC LABORATORIES: CBC and differential: WBC 18.3, hemoglobin and hematocrit 13.5 over 40, platelets 360. Sodium 128, potassium 3.5, chloride 92, BUN 28, creatinine 1.7, glucose 42. IMAGING: X-ray of ribs is pending. IMPRESSION: 1. Persistent hypoglycemia. 2. Type 1 diabetes. 3. Temporal arteritis on chronic prednisone. 4. Hypertension. 5. Dyslipidemia. 6. Leukocytosis. 7. Hyponatremia. PLAN: The patient will be admitted to the intensive care unit (ICU) for close monitoring due to persistent hypoglycemia. His insulin pump was discontinued in the ER. We will continue D10 drip and check his fingerstick every one hour. The underlying cause of his hypoglycemia likely multifactorial including poor oral intake but continue to use insulin pump. Also he may have adrenal gland insufficiency due to long-term use of oral prednisone. He has increased leukocytosis, but there is no evidence of active infection. We will continue to monitor. Will continue most of his home medications except holding insulin pump. MTDD
[2016-10-25] MEDS ORDERED: GLUCAGON FOR INJ 1 MG VIAL (J1610) SC PRN (07:00)
[2016-10-25] MEDS ORDERED: GLUCOSE 4 GM CHEW TABLET PO PRN (07:00)
[2016-10-25] MEDS ORDERED: DEXTROSE 50% 50 ML SYRINGE IV PRN (07:00)
[2016-10-25] MEDS ORDERED: D5W/0.9% SODIUM CHLORIDE 1,000 ML IV SCH (07:15)
--- NOTE | 2016-10-25 07:31 | REP ---
Left ribs and PA chest: Left ribs four views: I suspect nondisplaced fractures of the posterior arches of the left ninth and tenth ribs. I suspect there are old healed fractures in the posterior arches of the left fifth and sixth ribs. PA chest: There is no pneumothorax, hemothorax or pulmonary contusion. Lung rebolledo are clear. Cardiac size is normal. The nirmala and mediastinum are unremarkable. Impression: Negative PA chest. Signed by Kevin Thurman MD 10/25/2016 07:22 A
[2016-10-25] MEDS: NS 1,000 ML IV SCH ×2 (07:45→19:58)
[2016-10-25] MEDS: CitaloPRAM (CeleXA) 20 MG TAB PO SCH (08:02)
[2016-10-25] MEDS: ASPIRIN 81 MG ENTERIC TAB PO SCH (08:02)
[2016-10-25] MEDS: PERCOCET 5MG/325MG TAB PO PRN ×3 (08:02→23:12)
[2016-10-25] MEDS: OMEPRAZOLE 20 MG CAP PO SCH (08:03)
[2016-10-25] MEDS: ATORVASTATIN 20 MG TAB PO SCH (08:03)
[2016-10-25] MEDS: predniSONE 20 MG TAB PO SCH (08:03)
[2016-10-25] MEDS: DOCUSATE SODIUM 100 MG CAP PO SCH (08:03)
[2016-10-25] MEDS: amLODIPine 5 MG TAB PO SCH (08:03)
[2016-10-25] MEDS: COSOPT OCUMETER PLUS 10ML (DORZOLAMIDE/TIMOLOL) OU SCH ×2 (10:30→21:59)
[2016-10-25] MEDS ORDERED: HumaLOG INSULIN (NovoLOG) PER UNIT SC ONE ×2 (11:00→14:45)
[2016-10-25] MEDS ORDERED: SENNA 8.6 MG TAB (SENOKOT) PO PRN (11:00)
[2016-10-25] MEDS ORDERED: DOCUSATE SODIUM 100 MG CAP PO PRN (11:00)
[2016-10-25] MEDS ORDERED: HumaLOG INSULIN (NovoLOG) PER UNIT SC SCH ×2 (12:00→21:00)
[2016-10-25] MEDS ORDERED: HumaLOG INSULIN (NovoLOG) PER UNIT SC STA (12:21)
[2016-10-25 14:11] LABS: MEAN CORPUSCULAR HEMOGLOBIN 31.1 pg (27.0-33.0); MEAN CORPUSCULAR HGB CONC 33.4 g/dl (32.0-36.5); WHITE BLOOD COUNT 14.8 K/mm3 (4.0-10.0)
[2016-10-25 14:27] LABS: ALBUMIN 2.8 GM/DL (3.2-5.2); ALBUMIN/GLOBULIN RATIO 0.74 (1.00-1.93); BILIRUBIN,TOTAL 0.5 MG/DL (0.2-1.0); CALCIUM LEVEL 8.5 MG/DL (8.5-10.1); CREATININE FOR GFR 2.18 MG/DL (0.70-1.30); GLOMERULAR FILTRATION RATE 33.4 (>56); POTASSIUM SERUM 4.2 MEQ/L (3.5-5.1); TOTAL PROTEIN 6.6 GM/DL (6.4-8.2)
[2016-10-25 19:44] LABS: CALCIUM LEVEL 8.6 MG/DL (8.5-10.1); CREATININE FOR GFR 1.87 MG/DL (0.70-1.30); GLOMERULAR FILTRATION RATE 39.8 (>56); POTASSIUM SERUM 4.5 MEQ/L (3.5-5.1)
[2016-10-26] VITALS: BP 133/75
[2016-10-26 04:00] VITALS: BP 114/61
[2016-10-26] MEDS: HEPARIN SOD (PORCINE) 5000 UNITS/ML VIAL SC SCH ×3 (06:06→21:22)
[2016-10-26 07:07] LABS: MEAN CORPUSCULAR HEMOGLOBIN 31.4 pg (27.0-33.0); MEAN CORPUSCULAR HGB CONC 34.3 g/dl (32.0-36.5); MEAN CORPUSCULAR VOLUME 91.6 fl (80.0-96.0); RED CELL DISTRIBUTION WIDTH 12.9 % (11.5-14.5); WHITE BLOOD COUNT 15.6 K/mm3 (4.0-10.0)
[2016-10-26 07:21] LABS: ANION GAP 10 MEQ/L (8-16); BLOOD UREA NITROGEN 53 MG/DL (7-18); CALCIUM LEVEL 8.6 MG/DL (8.5-10.1); CARBON DIOXIDE LEVEL 21 MEQ/L (21-32); CHLORIDE LEVEL 97 MEQ/L (98-107); GLOMERULAR FILTRATION RATE > 60.0 (>56); GLUCOSE, FASTING 124 MG/DL (70-105); POTASSIUM SERUM 4.1 MEQ/L (3.5-5.1); SODIUM LEVEL 128 MEQ/L (136-145)
[2016-10-26] MEDS: DOCUSATE SODIUM 100 MG CAP PO SCH (08:15)
[2016-10-26] MEDS: ASPIRIN 81 MG ENTERIC TAB PO SCH (08:15)
[2016-10-26] MEDS: OMEPRAZOLE 20 MG CAP PO SCH (08:16)
[2016-10-26] MEDS: CitaloPRAM (CeleXA) 20 MG TAB PO SCH (08:16)
[2016-10-26] MEDS: ATORVASTATIN 20 MG TAB PO SCH (08:17)
[2016-10-26] MEDS: amLODIPine 5 MG TAB PO SCH (08:23)
[2016-10-26] MEDS: PERCOCET 5MG/325MG TAB PO PRN ×3 (08:25→21:24)
[2016-10-26] MEDS: COSOPT OCUMETER PLUS 10ML (DORZOLAMIDE/TIMOLOL) OU SCH ×2 (08:26→21:32)
[2016-10-26] MEDS: predniSONE 20 MG TAB PO SCH (09:00)
--- NOTE | 2016-10-26 10:31 | IPN ---
DATE OF EXAMINATION: 10/26/2016 SUBJECTIVE: The patient tells me he is feeling a lot better than he did yesterday. He denies chest pain, shortness of breath, fevers, chills, nausea, vomiting, or diarrhea. He tells me that he is eating well, and his appetite has returned. He tells me that his blood sugar is controlled, and he is happy with how he is doing. OBJECTIVE: VITAL SIGNS: Temperature 98. Pulse 77. Respiratory rate 12. Blood pressure (BP) 114/61. Oxygen (O2) saturation 100% on room air. GENERAL: He is a disheveled middle-age man who appears older than his stated age, lying in bed at a 30-degree angle. He does not appear to be in any acute distress. HEENT: He is disheveled. Poor dentition. Dry mucous membranes. Cranial nerves II-XII are grossly intact. No elevation in central venous pressure (CVP). CARDIOVASCULAR EXAMINATION: S1, S2. Regular. RESPIRATORY EXAMINATION: Is clear. ABDOMINAL EXAMINATION: He has an infusion insulin pump in place with a well-healing previous infusion sites. EXTREMITIES: No clubbing, cyanosis, or edema. He has an abrasion on his left elbow. He has a bruise on his left CVA area. A significant bruise on the dorsum of his right foot. LABORATORY STUDIES: WBC 15.6, hemoglobin 11.2, hematocrit 30.7. Chemistry panel: Sodium 128 up from 120 yesterday afternoon, potassium 4.1, chloride 97, bicarbonate 21, BUN 53, creatinine 1.3 down from 2.8 yesterday afternoon, hemoglobin A1c of 8.8. MICROBIOLOGY DATA: Blood cultures are pending. IMAGING DATA: The patient had a rib x-ray that did not reveal any fractures or any acute infiltrates. ASSESSMENT AND PLAN: This is a 66-year-old man who has what appears to be an insulin overdose. PROBLEMS: 1. Insulin overdose. The patient admits to me that he has been operating his pump without his glasses. When he last checked his pump, the reservoir was empty. He feels as though he likely overinfused himself with insulin. He was hypoglycemic and had a fall. His fingerstick was 17 at that time. He presented to the emergency room (ER). He did receive some sugar. However, his blood sugar raised and then dropped again. He was admitted. He was on D10 briefly, and his pump was turned off. He actually became hyperglycemic quite quickly with his pump being off. He is known to be a very brittle diabetic. He was bolused with NovoLog until his pump was able to be restarted, and his glasses were able to be returned. He was restarted on his pump. His fingersticks have been monitored every 1 hour. At this time, they appear to be relatively level and controlled for the last 12 hours. Will discontinue him off of every 1 hour fingersticks and switch him to before meals and at bedtime. Continue with his insulin infusion pump as he normally does at home, as he does appear to be much better controlled at this time. 2. Giant cell arteritis. The patient is on chronic prednisone. He has leukocytosis, which is unchanged since his admission here. Blood cultures have been drawn and pending. Other than reactive leukocytosis, this is possibly related to steroids. He does not appear to be overly septic. He is not on any antibiotics, and he is feeling well. 3. Hyponatremia. The patient had poor by mouth intake and appeared dehydrated. Unfortunately, earlier during his stay, he received D5 and D10 half-normal saline, which I think may have played a role in driving his sodium down. Yesterday morning, he was switched to normal saline without any D5, and his renal function is improving. Sodium is improving. Recheck a basic metabolic profile (BMP) later this afternoon. 4. Hypertension. Continue with Norvasc. 5. Dyslipidemia. Continue with Lipitor. 6. Depression. Continue with Celexa. 7. Gastroesophageal reflux disease. Continue with omeprazole. 8. Deep venous thrombosis (DVT) prophylaxis. The patient is on heparin. 9. Migraine headaches. The patient is on Maxalt. DISPOSITION: Will have the patient work with physical therapy today. Will transfer him out of the medical intensive care unit to the medical-surgical floor. Provided his blood sugars remain stable, he is cleared by physical therapy (PT), and he continues to do well with his sodium improving, I suspect he may be able to be discharged within the next 24 hours. ERLIN
[2016-10-26] MEDS: NS 1,000 ML IV SCH ×2 (10:55→15:11)
[2016-10-26 14:55] VITALS: BP 160/74
[2016-10-26 16:31] LABS: ANION GAP 9 MEQ/L (8-16); BLOOD UREA NITROGEN 47 MG/DL (7-18); CALCIUM LEVEL 8.5 MG/DL (8.5-10.1); CARBON DIOXIDE LEVEL 24 MEQ/L (21-32); CHLORIDE LEVEL 96 MEQ/L (98-107); CREATININE FOR GFR 1.26 MG/DL (0.70-1.30); GLOMERULAR FILTRATION RATE > 60.0 (>56); GLUCOSE, FASTING 253 MG/DL (70-105); POTASSIUM SERUM 4.5 MEQ/L (3.5-5.1); SODIUM LEVEL 129 MEQ/L (136-145)
[2016-10-26 16:43] VITALS: BP 128/72
[2016-10-26] MEDS: CALCIUM CARBONATE 500 MG CHEW U/D PO PRN (18:24)
[2016-10-26 22:00] VITALS: BP 179/84
[2016-10-27] MEDS: PERCOCET 5MG/325MG TAB PO PRN ×2 (03:39→09:05)
[2016-10-27] MEDS: NS 1,000 ML IV SCH (04:15)
[2016-10-27] MEDS: HEPARIN SOD (PORCINE) 5000 UNITS/ML VIAL SC SCH ×2 (05:25→13:59)
[2016-10-27 06:00] VITALS: BP 150/74
[2016-10-27 06:08] LABS: MEAN CORPUSCULAR HEMOGLOBIN 31.4 pg (27.0-33.0); MEAN CORPUSCULAR HGB CONC 34.4 g/dl (32.0-36.5); MEAN CORPUSCULAR VOLUME 91.2 fl (80.0-96.0); RED CELL DISTRIBUTION WIDTH 13.1 % (11.5-14.5)
[2016-10-27 06:21] LABS: ANION GAP 6 MEQ/L (8-16); BLOOD UREA NITROGEN 25 MG/DL (7-18); CALCIUM LEVEL 8.1 MG/DL (8.5-10.1); CARBON DIOXIDE LEVEL 27 MEQ/L (21-32); CHLORIDE LEVEL 102 MEQ/L (98-107); CREATININE FOR GFR 0.78 MG/DL (0.70-1.30); GLOMERULAR FILTRATION RATE > 60.0 (>56); GLUCOSE, FASTING 72 MG/DL (70-105); SODIUM LEVEL 135 MEQ/L (136-145)
[2016-10-27] MEDS: DOCUSATE SODIUM 100 MG CAP PO SCH (09:01)
[2016-10-27] MEDS: predniSONE 20 MG TAB PO SCH (09:01)
[2016-10-27] MEDS: OMEPRAZOLE 20 MG CAP PO SCH (09:01)
[2016-10-27] MEDS: ATORVASTATIN 20 MG TAB PO SCH (09:01)
[2016-10-27] MEDS: ASPIRIN 81 MG ENTERIC TAB PO SCH (09:01)
[2016-10-27] MEDS: CitaloPRAM (CeleXA) 20 MG TAB PO SCH (09:01)
[2016-10-27 09:04] VITALS: BP 188/81
[2016-10-27] MEDS: amLODIPine 5 MG TAB PO SCH (09:04)
[2016-10-27] MEDS: COSOPT OCUMETER PLUS 10ML (DORZOLAMIDE/TIMOLOL) OU SCH (09:05)
[2016-10-27] MEDS: CALCIUM CARBONATE 500 MG CHEW U/D PO PRN (13:58)
[2016-10-27 14:00] VITALS: BP 140/71
--- NOTE | 2016-10-28 19:52 | DSES ---
DATE OF ADMISSION: 10/25/2016 DATE OF DISCHARGE: 10/27/2016 DISCHARGE DIAGNOSIS: Accidental insulin overdose. SECONDARY DIAGNOSES: 1. Hypovolemic hyponatremia. 2. Giant-cell arteritis. 3. Hypertension. 4. Dyslipidemia. 5. Depression. 6. Gastroesophageal reflux disease. 7. Migraine headache. HOSPITAL COURSE: The patient is a 56-year-old type 1 diabetic who is insulin pump dependent, who informs me that he had been operating his pump without wearing his eye glasses, and on the day of his admission he had felt weak and had a fall in the bathroom. At the time of the fall, emergency medical services (EMS) was called. His fingerstick was found to be 17. He was brought to the emergency room and given an ampule of D5 and given some glucose. His blood sugar did come up; however, it quickly fell once again in the emergency room. The patient checked his insulin pump reservoir which was completely empty. He feels as though he may have accidentally given himself too much insulin through the pump. He was admitted to the medical intensive care unit with [id number] fingersticks. Was initially on dextrose 10% (D10); however, once his pump was discontinued, his blood sugar quickly began to rise. He received several boluses of NovoLog until we were able to restart his insulin pump and achieve good glycemic control. At the time of his admission, he was found to be significantly hyponatremic at 128, and while he was receiving D10 half normal saline, sodium actually dropped to 120. However, with switching to regular normal saline without any further intravenous (IV) fluids, his sodium was gradually corrected in a slow and controlled manner. SUBJECTIVE: This morning the patient reports he feels well. He has no complaints. He would like to go home. OBJECTIVE: VITAL SIGNS: Temperature 98.4, pulse 79, respiratory rate 18, blood pressure 150/74, oxygen saturation 98% on room air. GENERAL: He is a disheveled man lying flat in bed in no acute distress. HEENT: Has a chronic disconjugate gaze. Moist mucous membranes. He is disheveled. Cranial nerves II through XII are grossly intact. CARDIOVASCULAR: S1, S2. Regular. RESPIRATORY: Clear. ABDOMEN: Bowel sounds present. The abdomen is soft. EXTREMITIES: No clubbing, cyanosis or edema. He has an abrasion on his left elbow and hematoma on the dorsum of his right foot. A small area of ecchymosis on the left flank. LABORATORY DATA: Today, WBC 11, hemoglobin 9.9, hematocrit 28.7, platelet count 322. Chemistry panel: Sodium 135, potassium 4.0, chloride 102, bicarbonate 27, BUN 25, creatinine 0.7. Blood cultures have been negative. Rib series did not reveal any fractures. ASSESSMENT AND PLAN: This is a 56-year-old man with accidental insulin overdose. 1. Accidental insulin overdose. He was supported with D5 until this did resolve. He has been restarted on his insulin pump. His glucose is well controlled. He has been advised to wear his eye glasses at all times when operating his pump. 2. Hypovolemic hyponatremia, resolved with fluid resuscitation. 3. Giant-cell arteritis. The patient is on chronic prednisone as well as Bactrim prophylaxis. He did have a fairly persistent leukocytosis. His cultures were all negative. He was never febrile. No evidence of infection. 4. Hypertension. He was continued on Norvasc. 5. Dyslipidemia. He was continued on Lipitor. 6. Depression. He was continued on Celexa. 7. Migraine headache. He was continued on Maxalt as needed. 8. Gastroesophageal reflux disease. He was continued on omeprazole. 9. Deep venous thrombosis (DVT) prophylaxis. He was continued on heparin. DISPOSITION: The patient will be discharged home to the care of his family. His critical status has resolved. He is at his functional baseline. He has been cleared by physical therapy. He will be discharged with a prescription for home physical therapy (PT). He is to followup with his primary care provider (PCP) in seven days. His activity is as prior to admission, and his diet is as prior to admission. He is to return to the ER if symptoms worsen. MEDICATIONS ON DISCHARGE: - Norvasc 5 mg daily - aspirin 81 mg daily - atorvastatin 40 mg daily - citalopram 40 mg daily - dorzolamide timolol solution one drop each eye twice a day - Flonase 100 mcg nasally daily as needed for allergies - glucosamine chondroitin as per the patient one capsule twice a day - NovoLog subcutaneously as directed vis insulin pump - lisinopril 10 mg daily - omeprazole 20 mg daily - prednisone 20 mg daily - Maxalt 5 mg as directed as needed for migraines - Bactrim 400/80 one tablet twice a day Greater than 30 minutes were spent organizing disposition. MTDD
== END 2016-10-27 16:20 | disposition home or self-care (01) | DRG 638 ==
LOC: M ED 23:42 → EDBD 23:42 → M ED INP 10-25 05:29 → M ICU 10-25 06:10 → M MSPAV 10-26 14:53
PROVIDERS: ADMIT Hospitalist; ATTEND Internal Medicine
DX: E10.649 Type 1 diabetes mellitus with hypoglycemia without coma (principal); E87.1 Hypo-osmolality and hyponatremia; E78.5 Hyperlipidemia, unspecified; I10 Essential (primary) hypertension; F32.9 Major depressive disorder, single episode, unspecified; K21.9 Gastro-esophageal reflux disease without esophagitis; G43.909 Migraine, unspecified, not intractable, without status migrainosus; M31.6 Other giant cell arteritis; Z79.899 Other long term (current) drug therapy; Z79.4 Long term (current) use of insulin; Z79.52 Long term (current) use of systemic steroids; Z88.8 Allergy status to other drugs, medicaments and biological substances; Z91.19 Patient's noncompliance with other medical treatment and regimen

== ENCOUNTER 2016-10-31 13:04 | Inpatient (IN) | payer MEDICARE, MEDICAID ==
[~2016-10-31] VITALS: Ht 175.3 cm; Wt 69.1 kg
[~2016-10-31 13:04] MED LIST changes: +DORZ2SOL5 OU; +MAXA5TAB10 PO; +OMEP20CA3 PO
[2016-10-31] MEDS ORDERED: DORZOL/TIMOL (13:23)
[2016-10-31] MEDS ORDERED: LANS15CA PO (13:23)
[2016-10-31] MEDS ORDERED: OMEP40CA2 PO (13:23)
[2016-10-31] MEDS ORDERED: METH1TAB40 PO (13:23)
[2016-10-31] MEDS ORDERED: NS 1,000 ML IV ONE (14:15)
[2016-10-31 16:21] LABS: BASO % 0.3 % (0.0-1.0); EOS % 0.3 % (0.0-3.0); LARGE UNSTAINED CELL # 0.2 K/mm3 (0.0-0.4); LARGE UNSTAINED CELL % 1.6 % (0.0-4.0); MEAN CORPUSCULAR HEMOGLOBIN 31.3 pg (27.0-33.0); MEAN CORPUSCULAR HGB CONC 34.7 g/dl (32.0-36.5); MEAN CORPUSCULAR VOLUME 90.2 fl (80.0-96.0); MONO # 0.7 K/mm3 (0.0-0.8); MONO % 6.9 % (0.0-5.0); NEUTROPHILS # 7.5 K/mm3 (1.8-7.7); NEUTROPHILS % 72.9 % (36.0-66.0); PLATELET COUNT, AUTOMATED 439 k/mm3 (150-450); RED CELL DISTRIBUTION WIDTH 13.1 % (11.5-14.5); WHITE BLOOD COUNT 10.3 K/mm3 (4.0-10.0)
--- NOTE | 2016-10-31 16:34 | REP ---
PA and lateral chest: Comparison is the left rib series including the PA chest dated 10/25/2016. There are no infiltrates, effusions or masses. Lung rebolledo otherwise clear. No pneumothorax or pleural fluid collection. Cardiac size is normal. The nirmala, mediastinum, and bony thorax are unremarkable. Impression: Essentially negative PA and lateral chest. Signed by Kevin Thurman MD 10/31/2016 03:01 P
[2016-10-31 17:01] LABS: ALBUMIN 2.8 GM/DL (3.2-5.2); ALBUMIN/GLOBULIN RATIO 0.62 (1.00-1.93); BILIRUBIN,DIRECT 0.2 MG/DL (0.0-0.2); BILIRUBIN,TOTAL 0.8 MG/DL (0.2-1.0); CALCIUM LEVEL 8.9 MG/DL (8.5-10.1); CREATININE FOR GFR 1.38 MG/DL (0.70-1.30); GLOMERULAR FILTRATION RATE 56.5 (>56); TOTAL PROTEIN 7.3 GM/DL (6.4-8.2)
[2016-10-31] MEDS ORDERED: GI COCKTAIL 50ML BTL(HYOSCYAMINE/MAALOX/LIDOCAINE VISCOUS)(1:3:1) PO ONE (18:30)
[2016-10-31] MEDS ORDERED: ACETAMINOPHEN 325 MG TAB PO ONE (18:30)
[2016-10-31 18:53] LABS: ALBUMIN 2.9 GM/DL (3.2-5.2); ALBUMIN/GLOBULIN RATIO 0.76 (1.00-1.93); BILIRUBIN,DIRECT 0.2 MG/DL (0.0-0.2); BILIRUBIN,TOTAL 0.9 MG/DL (0.2-1.0); TOTAL PROTEIN 6.7 GM/DL (6.4-8.2)
[2016-10-31] MEDS ORDERED: DEXTROSE 50% 50 ML SYRINGE IV STA (20:10)
[2016-10-31] MEDS ORDERED: LATA5OPD OU (20:29)
[2016-10-31] MEDS ORDERED: GLUC1KIT INJ (20:29)
[2016-10-31] MEDS ORDERED: TYLE500T78 PO (20:29)
[2016-10-31] MEDS ORDERED: FLUTICASONE PROP 0.05% NASAL SPRAY 16 GM (FLONASE) PRN (21:00)
[2016-10-31] MEDS ORDERED: BACTRIM 80MG/400MG TAB PO SCH (21:00)
[2016-10-31] MEDS ORDERED: GLUCAGON FOR INJ 1 MG VIAL (J1610) SC PRN (21:00)
[2016-10-31] MEDS ORDERED: GLUCOSE 4 GM CHEW TABLET PO PRN (21:00)
[2016-10-31] MEDS: HumaLOG INSULIN (NovoLOG) PER UNIT SC SCH (21:55)
[2016-10-31] MEDS: NS 1,000 ML IV SCH (22:00)
--- NOTE | 2016-10-31 22:36 | HPE ---
DATE OF ADMISSION: 10/31/2016 PRIMARY CARE PROVIDER: Doctor at [facility]. CHIEF COMPLAINT: Generalized weakness, poor oral intake. HISTORY OF PRESENT ILLNESS: Mr. Girard is a pleasant 56-year-old gentleman recently discharged from the hospital after having an accidental insulin overdose, hypoglycemia and presents back to the emergency room (ER) this evening with his family complaining of increased generalized weakness and felt that he may have went home too soon. He has been started recently on his prednisone for giant cell arteritis. He has continued taking Bactrim as well as his lisinopril even though he has had poor oral intake with decreased urine output. He does have a history of hypovolemic hyponatremia. Recently, he has received some IV fluids in the emergency department. Stated that he did have a home blood sugar in the 30s, did receive some dextrose and his sugars have normalized. He denies any fevers, chills or rigors. He has had decreased appetite but no nausea or vomiting. No abdominal pain. His bowel movements are regular. Denies any hematochezia or melena. PAST MEDICAL HISTORY: 1. Giant cell arteritis. 2. Type 1 diabetes. 3. Hypertension. 4. Dyslipidemia. 5. Gastroesophageal reflux disease (GERD). 6. Hypertension. 7. Depression. 8. Migraines. PAST SURGICAL HISTORY: None. FAMILY HISTORY: Noncontributory. SOCIAL HISTORY: The patient states he quit smoking 10-15 years ago. Denies any alcohol use. No illicit drug use. He is not . He has three kids, and he is a [employer]. REVIEW OF SYSTEMS: Constitutional: No fevers, chills, nausea, vomiting. He has had some headaches and generalized weakness, which he relates to his temporal arteritis. HEENT: Headache as outlined above. No nausea, vomiting, no change in appetite. No facial droop. Pulmonary: Denies productive sputum, cough or hemoptysis. Cardiovascular: No chest pain. No paroxysmal nocturnal dyspnea (PND), orthopnea or lower extremity edema. Gastrointestinal (GI): No nausea, vomiting, diarrhea. Bowel movements are regular. Genitourinary: Decreased urine output but denies frequency or dysuria. No hematuria. Musculoskeletal: As outlined, generalized weakness with no focal issues. Neurologic: Positive for a history of migraines and headaches, possibly related to temporal arteritis, which he has recently been started on prednisone for. No visual changes. No facial droop. Endocrine: Positive for diabetes. No thyroid disorder. Lymphatics: No lumps, bumps, swelling in the neck, axilla or groin. No night sweats. No weight loss. Hematology: Negative for bleeding or bruising disorder. No prior history of venous thromboembolism. Psychiatric: Positive for depression but no suicidal ideation. No audiovisual hallucinations. 10-point review of systems complete. Pertinent positives are listed. PHYSICAL EXAMINATION: Temperature is 99.3, pulse 98 and regular, respiratory rate is 18, nonlabored. Blood pressure is 124/75, SPO2 is 98% on room air. General: The patient appears to be in no acute distress. He is alert, oriented , pleasant. HEENT: Head is atraumatic, normocephalic. Eyes: Pupils equal and reactive to light and accommodation. Throat clear. Mucous membranes does appear to be slightly dry. Neck is supple. No jugular venous distention (JVD). Lungs: Diminished bibasilar breath sounds, otherwise clear. Heart: Regular rate and rhythm. Abdomen: Soft. Extremities: No edema, no calf tenderness. LABORATORY DATA: White count is 10.3, hemoglobin is 12.4, platelets are 439, 000. Sodium is 131, potassium 4.0, chloride 95, bicarbonate 28, anion gap is 8, BUN is 26, creatinine 1.38 up from 0.78, glucose is 120, lactic acid 2.2, total bilirubin 0.9, direct bilirubin 0.2, AST is 50, ALT is 85, alkaline phosphatase is 206, albumin is 2.9, amylase is 69, lipase is 54. Blood cultures are pending. Previous blood cultures when he was admitted last week are negative times two. Chest x-ray: Lung rebolledo were clear. No acute cardiopulmonary processes are noted. He does have a peripherally inserted central catheter (PICC) line inserted due to difficulty with intravenous (IV) access. IMPRESSION: Mr. Girard is a pleasant 56-year-old gentleman who presents to the emergency department with increased weakness, poor oral intake, decreased urine output and does appear to have acute kidney injury secondary to dehydration. He does have some mild lactic acidosis without any obvious source of infection, and he will need to be admitted overnight for IV fluids, further monitoring and physical therapy (PT) evaluation in the morning as well. PROBLEMS: 1. Acute kidney injury, likely secondary to dehydration. 2. Generalized weakness. 3. Lactic acidosis with no obvious source of infection. He did receive an IV fluid bolus and will repeat lactic acid in 6 hours. 4. Giant cell arteritis. 5. Gastroesophageal reflux disease. 6. Hypertension. 7. Dyslipidemia. 8. Depression. 9. History of migraines. PLAN: The patient is admitted to medical-surgical per Dr. Macias who will see him in the morning. Continue with IV fluid rehydration, hold his nephrotoxic drugs including the Bactrim and lisinopril. PT evaluation and treatment, repeat a sedimentation rate. Check morning labs consisting of complete blood count (CBC), renal profile. Deep vein thrombosis (DVT) prophylaxis subcu heparin. DISPOSITION: Anticipate home discharge in less than 48 hours. ERLIN
[2016-10-31 22:45] VITALS: BP 180/98
[2016-11-01] MEDS ORDERED: amLODIPine 5 MG TAB PO ONE
[2016-11-01] MEDS: METHOCARBAMOL 500 MG TAB PO SCH ×6 (00:15→20:44)
[2016-11-01] MEDS: RIZATRIPTAN BENZOATE 10 MG TAB PO PRN ×2 (00:17→20:48)
[2016-11-01] MEDS: COSOPT OCUMETER PLUS 10ML (DORZOLAMIDE/TIMOLOL) OU SCH ×3 (00:18→20:45)
[2016-11-01] MEDS: LATANOPROST 0.005% OPHTH SOLN 2.5 ML OU SCH ×2 (00:18→20:44)
[2016-11-01 02:40] VITALS: BP 178/80
[2016-11-01] MEDS ORDERED: GI COCKTAIL 50ML BTL(HYOSCYAMINE/MAALOX/LIDOCAINE VISCOUS)(1:3:1) PO ONE (03:15)
[2016-11-01 06:00] VITALS: BP 150/98
[2016-11-01] MEDS: SODIUM CHLORIDE 0.9% INJ 10 ML SYR IV PRN (06:18)
[2016-11-01] MEDS: HEPARIN SOD (PORCINE) 5000 UNITS/ML VIAL SQ SCH ×3 (06:19→22:57)
[2016-11-01 06:23] LABS: MEAN CORPUSCULAR HGB CONC 33.8 g/dl (32.0-36.5); MEAN CORPUSCULAR VOLUME 91.7 fl (80.0-96.0); RED CELL DISTRIBUTION WIDTH 13.1 % (11.5-14.5)
[2016-11-01 06:35] LABS: ALBUMIN 2.5 GM/DL (3.2-5.2); ANION GAP 11 MEQ/L (8-16); BLOOD UREA NITROGEN 21 MG/DL (7-18); CALCIUM LEVEL 7.8 MG/DL (8.5-10.1); CARBON DIOXIDE LEVEL 25 MEQ/L (21-32); CHLORIDE LEVEL 93 MEQ/L (98-107); CREATININE FOR GFR 1.03 MG/DL (0.70-1.30); GLOMERULAR FILTRATION RATE > 60.0 (>56); GLUCOSE, FASTING 281 MG/DL (70-105); PHOSPHORUS LEVEL 2.5 MG/DL (2.5-4.9); POTASSIUM SERUM 4.6 MEQ/L (3.5-5.1); SODIUM LEVEL 129 MEQ/L (136-145)
[2016-11-01] MEDS: HumaLOG INSULIN (NovoLOG) PER UNIT SC SCH ×4 (07:30→20:46)
[2016-11-01] MEDS ORDERED: LISINOPRIL 10 MG TAB PO SCH (09:00)
[2016-11-01] MEDS ORDERED: ENOXAPARIN 40 MG/0.4 ML SYRINGE (J1650) SC SCH (09:00)
[2016-11-01] MEDS ORDERED: OMEPRAZOLE 20 MG CAP PO SCH (09:00)
[2016-11-01] MEDS: GI COCKTAIL 50ML BTL(HYOSCYAMINE/MAALOX/LIDOCAINE VISCOUS)(1:3:1) PO PRN ×3 (09:41→22:57)
[2016-11-01] MEDS: ATORVASTATIN 20 MG TAB PO SCH (10:17)
[2016-11-01] MEDS: CitaloPRAM (CeleXA) 20 MG TAB PO SCH (10:18)
[2016-11-01] MEDS: PANTOPRAZOLE 40MG INJ (PROTONIX) (C9113) IV SCH (10:18)
[2016-11-01] MEDS: ASPIRIN 81 MG ENTERIC TAB PO SCH (10:19)
[2016-11-01] MEDS: predniSONE 20 MG TAB PO SCH (10:19)
[2016-11-01] MEDS: amLODIPine 5 MG TAB PO SCH (10:20)
--- NOTE | 2016-11-01 13:59 | ECGEPIP ---
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
[2016-11-01 14:00] VITALS: BP 104/65
[2016-11-01] MEDS: NS 1,000 ML IV SCH (16:28)
--- NOTE | 2016-11-01 17:29 | IPN ---
DATE: 11/01/2016 SUBJECTIVE: Patient seen and examined in the room today. Patient stated since the discharge, which was October 27, patient started having worsening abdominal pain to the point that patient started to have very poor oral intake. Patient still having worsening weakness that resulted in multiple falls. Now the abdominal pain has become so very severe that his omeprazole is not controlling is symptoms. Patient does have a long history of reflux disease. The last upper endoscopy was performed when he was 19. Patient was told that he may have a gastric ulcer from the chronic steroid use, but he never had any repeated upper endoscopy. Patient's symptoms did get better with gastrointestinal (GI) cocktail. OBJECTIVE: VITAL SIGNS: Temperature is 98, pulse is 86, respirations 18, blood pressure 150/98, pulse oximetry is 98% in room air. GENERAL: No sign of acute distress, agitated due to abdominal discomfort. Alert and oriented times three. HEENT: Normocephalic, atraumatic. Extraocular motor grossly intact. CARDIOVASCULAR: Positive S1, S2, regular rate. LUNGS: Decreased breath sounds bilaterally. No wheezes or rhonchi. ABDOMEN: Mild discomfort at the epigastric region but is soft, nontender, nondistended. EXTREMITIES: No edema. No sign of cyanosis. LABORATORY DATA: WBC 9, hemoglobin is 10.8, hematocrit 31.9, platelet count 397. Sodium is 129, potassium 4.6, chloride is 93, carbon dioxide 25, BUN 21, creatinine 1.03, GFR is greater than 60, fasting glucose is 281, calcium 7.8, phosphorus 2.5, albumin is 2.5. ASSESSMENT AND PLAN: 1. Severe abdominal pain. Patient does have a history of chronic gastroesophageal reflux disease (GERD). Patient also noted to have a history of chronic prednisone use for his giant cell arteritis. There is a suspicion patient's abdominal pain may be due to gastric ulcers. General surgery, Dr. Raphael, has been consulted. Patient is scheduled for upper endoscopy on Sunday. At this time, patient will receive IV Protonix and gastrointestinal (GI) cocktail. Patient has a negative EKG. 2. Acute kidney injury secondary to poor oral intake/dehydration, resolved. 3. Generalized weakness secondary to persistent pain resulting in poor nutrition. Will continue to monitor patient. Patient will work with physical therapy. 4. Giant cell arteritis. Currently patient on prednisone 20 mg by mouth daily. 5. Hypertension. Patient had an exacerbation of the hypertension, most likely secondary to the abdominal discomfort. Patient was continued on the home medication regimen, and once the patient's pain was more controlled, it did show the patient's blood pressure returned to baseline. 6. Depression, on Celexa. 7. Hyperlipidemia, on atorvastatin. 8. History of migraine. Continue home medications. No exacerbation at this moment. 9. Deep vein thrombosis (DVT) prophylaxis. Patient is on heparin.
[2016-11-01] MEDS: SODIUM CHLORIDE 0.9% INJ 10 ML SYR IV SCH (17:38)
--- NOTE | 2016-11-01 18:46 | REP ---
Procedure: PICC line insertion with Sharon The procedure was performed under the direct supervision of Dr. Holland. The risks and benefits of the procedure were explained to the patient and informed consent was obtained. The right brachial vein was localized using ultrasound guidance. The skin was prepped and draped in a sterile fashion. 2% lidocaine was used as a local anesthetic. Using ultrasound guidance the brachial vein was cannulated and a 0.018 guidewire was inserted and advanced to the SVC using fluoroscopic guidance. The needle was removed and a 5.5 Guinean dilator and peel-away sheath was inserted over the guide wire. A 5.5 [place] dual lumen catheter was cut to length of 44 cm. The dilator was removed and the catheter was inserted over the guide wire with the tip ending in the SVC. The peel-away sheath was removed and the catheter was flushed with heparinized saline as per Hospital protocol. The catheter was affixed to the skin and a sterile dressing was applied. The the patient tolerated the procedure well and there were no immediate complications. 0.2 of fluoro time was utilized for this procedure. Reviewed by ANIBAL Hawk 11/01/2016 03:16 PSigned by Jose Holland MD 11/01/2016 06:37 P
[2016-11-01 22:00] VITALS: BP 158/82
[2016-11-02] MEDS: METHOCARBAMOL 500 MG TAB PO SCH ×6 (01:16→21:03)
[2016-11-02] MEDS: HEPARIN SOD (PORCINE) 5000 UNITS/ML VIAL SQ SCH ×3 (05:34→21:03)
[2016-11-02] MEDS: SODIUM CHLORIDE 0.9% INJ 10 ML SYR IV SCH ×2 (05:35→18:22)
[2016-11-02 05:58] LABS: MEAN CORPUSCULAR HEMOGLOBIN 31.3 pg (27.0-33.0); MEAN CORPUSCULAR HGB CONC 35.2 g/dl (32.0-36.5); RED CELL DISTRIBUTION WIDTH 12.9 % (11.5-14.5); WHITE BLOOD COUNT 9.7 K/mm3 (4.0-10.0)
[2016-11-02 06:00] VITALS: BP 141/79
[2016-11-02] MEDS: ACETAMINOPHEN TAB 650MG DOSE (2X325MG) PO PRN (06:04)
[2016-11-02] MEDS: RIZATRIPTAN BENZOATE 10 MG TAB PO PRN ×2 (06:05→12:30)
[2016-11-02] MEDS: NS 1,000 ML IV SCH ×2 (06:06→22:49)
[2016-11-02 06:24] LABS: ALBUMIN 2.3 GM/DL (3.2-5.2); ANION GAP 9 MEQ/L (8-16); BLOOD UREA NITROGEN 19 MG/DL (7-18); CALCIUM LEVEL 7.5 MG/DL (8.5-10.1); CARBON DIOXIDE LEVEL 25 MEQ/L (21-32); CHLORIDE LEVEL 95 MEQ/L (98-107); CREATININE FOR GFR 0.82 MG/DL (0.70-1.30); GLOMERULAR FILTRATION RATE > 60.0 (>56); GLUCOSE, FASTING 247 MG/DL (70-105); POTASSIUM SERUM 4.6 MEQ/L (3.5-5.1); SODIUM LEVEL 129 MEQ/L (136-145)
[2016-11-02 06:37] LABS: PHOSPHORUS LEVEL 1.7 MG/DL (2.5-4.9)
[2016-11-02] MEDS: HumaLOG INSULIN (NovoLOG) PER UNIT SC SCH ×2 (09:09→12:27)
[2016-11-02] MEDS: ASPIRIN 81 MG ENTERIC TAB PO SCH (09:09)
[2016-11-02] MEDS: PANTOPRAZOLE 40MG INJ (PROTONIX) (C9113) IV SCH ×2 (09:09→21:04)
[2016-11-02] MEDS: predniSONE 20 MG TAB PO SCH (09:09)
[2016-11-02] MEDS: CitaloPRAM (CeleXA) 20 MG TAB PO SCH (09:09)
[2016-11-02] MEDS: amLODIPine 5 MG TAB PO SCH (09:10)
[2016-11-02] MEDS: COSOPT OCUMETER PLUS 10ML (DORZOLAMIDE/TIMOLOL) OU SCH ×2 (09:10→21:04)
[2016-11-02] MEDS: ATORVASTATIN 20 MG TAB PO SCH (09:10)
[2016-11-02] MEDS: GI COCKTAIL 50ML BTL(HYOSCYAMINE/MAALOX/LIDOCAINE VISCOUS)(1:3:1) PO PRN ×2 (09:38→14:51)
[2016-11-02 14:00] VITALS: BP 118/70
[2016-11-02] MEDS: PERCOCET 5MG/325MG TAB PO PRN (16:19)
--- NOTE | 2016-11-02 16:36 | IPN ---
DATE: 11/02/2016 SUBJECTIVE: The patient is seen and examined in the room today. The patient stated his abdominal pain is controlled with the gastrointestinal (GI) cocktail and IV Protonix. However, he is still having intermittent exacerbation of the pain. Currently, he is complaining about significant skull pain. It is very similar to what he had for giant cell arteritis exacerbations. Currently, Tylenol alone is not enough to control the pain. The patient has not started on the immunosuppressant from the community arts worker yet, as previously the patient's symptoms have been suppressed by the prednisone only. The patient is requesting for more pain control. OBJECTIVE: VITAL SIGNS: Temperature is 98.8, pulse is 91, respiration rate 20, blood pressure 141/79, pulse oximetry is 99% in room air. GENERAL: Mild distress secondary to severe headache or skull pain, alert and oriented times three. HEENT: Normocephalic, atraumatic. Extraocular motor grossly intact. CARDIOVASCULAR: Positive S1, S2, regular rate. LUNGS: Decreased breath sounds bilaterally. Clear to auscultation bilaterally. ABDOMEN: Soft, nontender, nondistended. Bowel sounds present. No rebound. No guarding. EXTREMITIES: No edema. No sign of cyanosis. LABORATORY DATA: WBC is 9.7, hemoglobin 10, hematocrit 28.6, platelet count is 354. Sodium is 129, potassium 4.6, chloride is 95, carbon dioxide is 25, BUN is 19, creatinine 0.82, GFR is greater than 60, fasting glucose is 247, calcium is 7.5, phosphorus 1.7, albumin is 2.3. ASSESSMENT AND PLAN: 1. Severe abdominal pain. The patient has a long history of gastroesophageal reflux disease (GERD). The patient has a history of chronic prednisone use for his giant cell arteritis. General surgeon, Dr. Raphael, has been consulted. The patient is scheduled for upper endoscopy tomorrow. Currently, the patient's pain is managed with IV Protonix and gastrointestinal (GI) cocktail. We will increase the Protonix frequency to twice a day. 2. Giant cell arteritis exacerbation. The patient is currently on prednisone 20 mg by mouth daily. We will use Percocet as needed to control the acute pain. 3. Generalized weakness due to poor nutrition. We will try to achieve the pain control so the patient is able to increase oral intake. The patient will continue to work with physical therapy. 4. Acute kidney injury secondary to poor oral intake/dehydration, resolved. 5. Hypertension, most likely related to the patient's pain. With better pain control, the patient's blood pressure has been improving in the last 24 hours. The patient's blood pressure is in the satisfactory range. At home, the patient is taking lisinopril 10 mg by mouth daily. Due to acute kidney injury (IBAN), lisinopril and currently the patient does not have any hypertension. We will continue to monitor the patient. If the patient requires blood pressure control, we will consider restarting lisinopril. 6. Depression, on Celexa. 7. Hyperlipidemia, on atorvastatin. 8. History of migraine. The patient has Maxalt as needed. 9. Deep vein thrombosis (DVT) prophylaxis, on heparin.
--- NOTE | 2016-11-02 17:21 | CR.PDOC ---
General Surgery Consultation Date of Consultation 11/02/16 History and Physical CONSULT REPORT FOR: Laurie Cheema DO REASON FOR CONSULTATION: Abdominal pain, for consideration for upper endoscopy HISTORY OF PRESENT ILLNESS: 56-year-old male admitted to the hospital in her medical service for worsening weakness, worsening epigastric pain, acute kidney injury. I'm being asked to see the patient with regards to his epigastric pain for suspicion of possible peptic ulcer disease. With regards to this patient is currently complaining of severe burning type of pain for the past 3 weeks. This begins early in the morning as soon as he wakes up, worsens with food intake. He was on omeprazole at home and initially was helping him. Here in the hospital he has been given GI cocktail which seems to resolve the pain for a few hours until he returns. He is on also IV Protonix. Initially this was at once daily now changed to twice daily. Patient reports previous history of gastroesophageal reflux disease, questionable gastric or peptic ulcer. The colonoscopy, may have had an upper endoscopy in his 20s. He is being suspected to have peptic ulcer disease his main risk factors are that he is on chronic prednisone for about a year now. His been taking 20 mg of prednisone to control his headaches due to giant cell arteritis. PAST MEDICAL HISTORY: 1. Giant cell arteritis. 2. Type 1 diabetes. 3. Hypertension. 4. Dyslipidemia. 5. Gastroesophageal reflux disease (GERD). 6. Hypertension. 7. Depression. 8. Migraines. PAST SURGICAL HISTORY: INCLUDES: None though he reports previous colonoscopy may be upper GI endoscopy ALLERGIES: Please see below. FAMILY HISTORY: Leukemia HOME MEDICATIONS: Please see below. REVIEW OF SYSTEMS: GENERAL: Denies chills, fever, abnormal weight loss. He suffers from headaches. Currently having significant epigastric pain and discomfort HEENT: Denies blurred vision and double vision. Denies ear symptoms. Denies hoarseness. NECK: Denies any neck pain CARDIOVASCULAR: Denies chest pain and palpitations. MUSCULOSKELETAL: Denies arthralgias, back pain and thrombophlebitis. SKIN: Denies rash. NEUROLOGIC: Significant for multifocal headaches due to giant cell arteritis PSYCHIATRIC: Denies anxiety and depression. ENDOCRINE: Denies thyroid disease. HEMATOLOGY/ONCOLOGY: Denies bleeding or clotting disorder. HEART: Denies any chest pains, palpitations, paroxysmal dyspnea, orthopnea. PULMONARY: Denies chronic cough, dyspnea and wheezing. GASTROINTESTINAL: Denies rectal bleeding, family history of colon cancer, constipation, diarrhea, dysphagia, and jaundice. GENITOURINARY: Denies dysuria, frequency, hematuria and nocturia. ENDOCRINE: Patient with diabetes NUTRITION: Reports good appetite. PHYSICAL EXAMINATION: VITALS SIGNS: Please see below. GENERAL APPEARANCE:Patient seen, laying in bed, awake, alert, and oriented. Groening, uncomfortable, with a hand placed on the midepigastric area. Appears smaller than his stated age. SKIN: Warm and moist. HEENT: Normocephalic, atraumatic. [place] palpebral conjunctiva, anicteric sclerae. Lips and mucosa appear dry NECK: Supple, no thyromegaly. No obvious jugular venous distention. LUNGS: Clear to auscultation bilaterally. No wheezing appreciated. HEART: No chest wall abnormalities. Regular rate and rhythm with no murmurs appreciated. ABDOMEN: Abdomen is , mildly distended, soft, mild tenderness in direct palpation over the mid epigastric area. Nontender in the lower abdomen. Nontender left upper site. Nontender to right upper quadrant. No umbilical or groin herniation. EXTREMITIES: Extremities have no deformities. No edema identified ANCILLARIES: . LABORATORY DATA: Please see below. IMAGING STUDIES: . No new imaging studies for current complaint. He did have a CT scan of the abdomen and pelvis back in July. This shows extensive bilateral nephrolithiasis without evidence of hydronephrosis. Moderate constipation. IMPRESSION AND PLAN: Epigastric pain, dyspepsia He is already on twice a day IV Protonix likewise receiving GI cocktail. He seems to get some relief with a GI cocktail. I'll add some sucralfate. He scheduled for upper GI endoscopy tomorrow. The procedure, its risks and benefits were explained to the patient. Consent was obtained. Further recommendations after the study to follow. Vital Signs Vital Signs Date Time Temp Pulse Resp B/P (MAP) Pulse Ox O2 Delivery O2 Flow Rate FiO2 11/02/16 16:19 16 11/02/16 14:00 97.9 83 118/70 (86) 99 Room Air I&Os I&O- Last 24 Hours up to 6 AM 11/02/16 06:00 Intake Total 3475 ml Output Total 2800 ml Balance 675 ml Laboratory Data Labs 24H Laboratory Tests 2 11/01/16 18:51: Bedside Glucose (Misc Panel) 394H 11/01/16 20:22: Bedside Glucose (Misc Panel) 382H 11/02/16 05:45: Blood Urea Nitrogen 19H, Creatinine 0.82, Sodium Level 129L, Potassium Level 4.6 , Chloride Level 95L, Carbon Dioxide Level 25, Anion Gap 9, Glomerular Filtration Rate > 60.0, Calcium Level 7.5L, Phosphorus Level 1.7#L, Albumin 2.3L 11/02/16 11:39: Bedside Glucose (Misc Panel) 428H 11/02/16 16:21: Bedside Glucose (Misc Panel) 320H CBC/BMP Laboratory Tests 11/02/16 05:45 Red Blood Count 3.21 L, Mean Corpuscular Volume 89.0, Mean Corpuscular Hemoglobin 31.3, Mean Corpuscular Hemoglobin Concent 35.2, Red Cell Distribution Width 12.9, Anion Gap 9 Microbiology Microbiology 10/31/16 Blood Culture - Preliminary, Resulted No growth after 24 hours . All specim... 10/31/16 Blood Culture - Preliminary, Resulted No growth after 24 hours . All specim... Home Medications Scheduled (Dorzolamide HCl/Timolol M 22.3-6.8 mg/ml) 1 Darlyn Darlyn, 1 DROP OU BID, (Reported) Amlodipine Besylate (Amlodipine Besylate) 5 Mg Tab, 5 MG PO DAILY, (Reported) Aspirin (Aspir-81) 81 Mg Tab, 81 MG PO DAILY, (Reported) Atorvastatin Calcium (Atorvastatin Calcium) 40 Mg Tab, 40 MG PO DAILY, (Reported ) Citalopram Hydrobromide (Citalopram Hydrobromide) 40 Mg Tab, 40 MG PO DAILY, ( Reported) Glucosamine Chondroitin (Glucosamine Chondroitin) 1 Cap Cap, 1 CAP PO BID, ( Reported) Insulin Aspart (Novolog) 100 U/Ml Inj, 1 DOSE SC ASDIRECTED, (Reported) VIA INSULIN PUMP Lansoprazole (Lansoprazole) 15 Mg Cap, 15 MG PO DAILY, (Reported) Latanoprost (Latanoprost) 50 Drop/2.5 Ml Soln, 1 DROP OU QHS, (Reported) Lisinopril (Lisinopril) 10 Mg Tab, 10 MG PO DAILY, (Reported) PLACED ON HOLD BECAUSE OF POTASSIUM LEVELS Methocarbamol (Methocarbamol) 500 Mg Tab, 500 MG PO Q4H, (Reported) Omeprazole (Omeprazole) 20 Mg Cap, 20 MG PO DAILY, (Reported) Prednisone (Prednisone) 20 Mg Tab, 20 MG PO DAILY, (Reported) Trimethoprim/Sulfamethoxazole (Sulfamethoxazole/Trimetho 400-80 mg) 1 Ea Tab, 1 TAB PO BID, (Reported) Scheduled PRN (Flonase Allergy Relief) 50 Mcg/Act Spr, 50 MCG NA DAILY PRN for ALLERGIES, ( Reported) Acetaminophen (Tylenol Extra Strength) 500 Mg Tab, 1,000 MG PO Q6H PRN for PAIN, (Reported) Glucagon Rdna (Glucagon Emergency Kit) 1 Mg Kit, 1 MG INJ ASDIRECTED PRN for LOW BLOOD SUGAR, (Reported) Rizatriptan Benzoate (Maxalt) 5 Mg Tab, 5 MG PO ASDIRECTED PRN for MIGRANES, ( Reported) Allergies Coded Allergies: No Known Allergies (Unverified , 08/26/16) RAISA SARABIA MD Nov 02, 2016 17:21
[2016-11-02] MEDS: SUCRALFATE SUSP 1GM/10ML UD PO SCH (18:22)
[2016-11-02] MEDS: LATANOPROST 0.005% OPHTH SOLN 2.5 ML OU SCH (21:04)
[2016-11-02 22:00] VITALS: BP 131/80
[2016-11-03] VITALS (7 sets, daily range): BP systolic 121–171; BP diastolic 62–87
[2016-11-03] MEDS: SUCRALFATE SUSP 1GM/10ML UD PO SCH ×5 (00:05→23:35)
[2016-11-03] MEDS: METHOCARBAMOL 500 MG TAB PO SCH ×7 (00:05→23:41)
[2016-11-03] MEDS: SODIUM CHLORIDE 0.9% INJ 10 ML SYR IV SCH ×2 (05:46→18:03)
[2016-11-03] MEDS: HEPARIN SOD (PORCINE) 5000 UNITS/ML VIAL SQ SCH ×3 (05:46→21:27)
[2016-11-03] MEDS: PERCOCET 5MG/325MG TAB PO PRN ×2 (05:50→23:41)
[2016-11-03 06:19] LABS: MEAN CORPUSCULAR HEMOGLOBIN 30.5 pg (27.0-33.0); MEAN CORPUSCULAR HGB CONC 33.6 g/dl (32.0-36.5); RED CELL DISTRIBUTION WIDTH 12.8 % (11.5-14.5); WHITE BLOOD COUNT 9.5 K/mm3 (4.0-10.0)
[2016-11-03 06:32] LABS: ALBUMIN 2.5 GM/DL (3.2-5.2); ANION GAP 14 MEQ/L (8-16); BLOOD UREA NITROGEN 19 MG/DL (7-18); CALCIUM LEVEL 8.2 MG/DL (8.5-10.1); CARBON DIOXIDE LEVEL 22 MEQ/L (21-32); CHLORIDE LEVEL 98 MEQ/L (98-107); CREATININE FOR GFR 0.93 MG/DL (0.70-1.30); GLOMERULAR FILTRATION RATE > 60.0 (>56); GLUCOSE, FASTING 353 MG/DL (70-105); POTASSIUM SERUM 4.3 MEQ/L (3.5-5.1); SODIUM LEVEL 134 MEQ/L (136-145)
[2016-11-03] MEDS: amLODIPine 5 MG TAB PO SCH (09:00)
[2016-11-03] MEDS: PANTOPRAZOLE 40MG INJ (PROTONIX) (C9113) IV SCH ×2 (09:29→21:26)
[2016-11-03] MEDS: CitaloPRAM (CeleXA) 20 MG TAB PO SCH (09:29)
[2016-11-03] MEDS: COSOPT OCUMETER PLUS 10ML (DORZOLAMIDE/TIMOLOL) OU SCH ×2 (09:30→21:27)
[2016-11-03] MEDS: ATORVASTATIN 20 MG TAB PO SCH (09:30)
[2016-11-03] MEDS: predniSONE 20 MG TAB PO SCH (09:30)
[2016-11-03] MEDS ORDERED: ISOVUE-370 76% 100ML VIAL (Q9967) As Ordered ONE (10:22)
[2016-11-03] MEDS: SODIUM CHLORIDE 0.9% INJ 10 ML SYR IV PRN (10:27)
[2016-11-03] MEDS: ASPIRIN 81 MG ENTERIC TAB PO SCH (10:39)
--- NOTE | 2016-11-03 11:16 | REP ---
CT NECK WITH CONTRAST: HISTORY: Neck pain. CONTRAST: Isovue 370, 75 mL. The naso-, kiet- and hypopharynx, larynx and subglottic trachea are normal in appearance. The salivary and thyroid glands are normal in size and density. Small lymph nodes less than 1 cm in size are present in the internal jugular chains and posterior triangles. Atherosclerotic calcification is present at the carotid bifurcations. Minimal degenerative change is present in the cervical spine. The lung apices are clear. The visualized sinuses are clear. IMPRESSION: There is no neck mass or adenopathy. Signed by Manoj Curtis MD 11/03/2016 11:23 A
[2016-11-03] MEDS: HumaLOG INSULIN (NovoLOG) PER UNIT SC SCH ×4 (12:00→23:40)
--- NOTE | 2016-11-03 12:55 | ROOR ---
Patient Name: Hermann Girard Procedure Date: 11/03/2016 12:37 PM Date of : 1960 Age: 56 Room: [facility] Gender: Male Note Status: Finalized Procedure: Upper GI endoscopy Indications: Epigastric abdominal pain Providers: Job Raphael MD Referring MD: Pawel Bennett, Edwin Macias MD Requesting Provider: Medicines: Monitored Anesthesia Care Complications: No immediate complications. Procedure: Pre-Anesthesia Assessment: - Prior to the procedure, a History and Physical was performed, and patient medications and allergies were reviewed. The patient is competent. The risks and benefits of the procedure and the sedation options and risks were discussed with the patient. All questions were answered and informed consent was obtained. Patient identification and proposed procedure were verified by the physician, the nurse and the anesthesiologist in the pre-procedure area in the procedure room. Mental Status Examination: alert and oriented. Airway Examination: normal oropharyngeal airway and neck mobility. Respiratory Examination: clear to auscultation. CV Examination: normal. Prophylactic Antibiotics: The patient does not require prophylactic antibiotics. Prior Anticoagulants: The patient has taken no previous anticoagulant or antiplatelet agents. ASA Grade Assessment: II - A patient with mild systemic disease. After reviewing the risks and benefits, the patient was deemed in satisfactory condition to undergo the procedure. The anesthesia plan was to use monitored anesthesia care (MAC). Immediately prior to administration of medications, the patient was re-assessed for adequacy to receive sedatives. The heart rate, respiratory rate, oxygen saturations, blood pressure, adequacy of pulmonary ventilation, and response to care were monitored throughout the procedure. The physical status of the patient was re-assessed after the procedure. The Endoscope was introduced through the mouth, and advanced to the second part of duodenum. The Endoscope was introduced through the mouth, and advanced to the second part of duodenum. The upper GI endoscopy was accomplished without difficulty. The patient tolerated the procedure well. Findings: [place] Grade D (one or more mucosal breaks involving at least 75% of esophageal circumference) esophagitis with no bleeding was found in the lower third of the esophagus. Biopsies were taken with a cold forceps for histology. Estimated blood loss was minimal. Segmental mild inflammation characterized by congestion (edema) and erythema was found in the cardia. Biopsies were taken with a cold forceps for Helicobacter pylori testing. Estimated blood loss was minimal. The duodenal bulb and second portion of the duodenum were normal. Impression: - [place] Grade D monilial esophagitis. Biopsied. - Acute gastritis. Biopsied. - Normal duodenal bulb and second portion of the duodenum. Recommendation: - Admit the patient to [facility] for [facility] care. - Continue present medications. - Await pathology results. - Nystatin suspension 100,000 units PO QID for 1 week. Attending Participation: I personally performed the entire procedure. Job Raphael MD Job Raphael MD 11/03/2016 12:54:53 PM This report has been signed electronically. Number of Addenda: 0 Note Initiated On: 11/03/2016 12:37 PM Estimated Blood Loss: Estimated blood loss was minimal.
[2016-11-03] MEDS ORDERED: LR 1,000 ML IV SCH (13:30)
[2016-11-03] MEDS ORDERED: ONDANSETRON 4MG/2ML VIAL (J2405) IV PRN (13:30)
[2016-11-03] MEDS: NYSTATIN 500,000 U/5 ML SUSP UDC PO SCH ×3 (13:50→21:27)
[2016-11-03] MEDS: NS 1,000 ML IV SCH (13:51)
--- NOTE | 2016-11-03 15:41 | IPNPDOC ---
Text Note Date of Service The patient was seen on 11/03/16. NOTE EGD done for persistent burning epigastric pain. Moderate almost circumferential esophagitis at the lower third. Given history of prednisone use , most likely monilial esophagitis. Would treat with nystatin suspension for now. If not improved, may need diflucan. Continue with PPI, carafate. Will reevaluate on sunday. VS,Fishbone, I+O VS, Fishbone, I+O Laboratory Tests 11/03/16 05:56 Red Blood Count 3.52 L, Mean Corpuscular Volume 91.0, Mean Corpuscular Hemoglobin 30.5, Mean Corpuscular Hemoglobin Concent 33.6, Red Cell Distribution Width 12.8, Anion Gap 14 Vital Signs Date Time Temp Pulse Resp B/P (MAP) Pulse Ox O2 Delivery O2 Flow Rate FiO2 11/03/16 14:45 97.4 86 18 128/70 (89) 100 Room Air I&O- Last 24 Hours up to 6 AM 11/03/16 05:59 Intake Total 1320 ml Output Total 2950 ml Balance -1630 ml RAISA SARABIA MD Nov 03, 2016 15:41
--- NOTE | 2016-11-03 16:07 | IPN ---
DATE: 11/03/2016 SUBJECTIVE: The patient is seen and examined in the room today. The patient had an episode of recurrence of the epigastric pain after oral intake, and required frequent gastrointestinal (GI) cocktail administration. The patient stated his skull pain has improved, but now he started having the neck pain, mainly on the right occipital region. OBJECTIVE: VITAL SIGNS: Temperature is 97.7, pulse is 90, respirations 18, blood pressure 164/86. Pulse oximetry 100% in room air. GENERAL: Mild distress. Alert and oriented times three. HEENT: Tenderness to palpation at the right suboccipital region. No significant muscle hypertrophy palpated in that region but is tender to palpation. Normocephalic, atraumatic. CARDIOVASCULAR: Positive S1, S2. Regular rate. LUNGS: Decreased breath sounds bilaterally. Clear to auscultation bilaterally. ABDOMEN: Soft, nontender, nondistended. Bowel sounds present. No rebound, no guarding. EXTREMITIES: No edema, no sign of cyanosis. LABORATORY DATA: WBC 9.5, hemoglobin 10.7, hemoglobin 32, platelet count 438. Sodium 134, potassium 4.2, chloride 98, carbon dioxide 22, BUN 19, creatinine 0.93, GFR greater than 60, fasting glucose is 353. Calcium is 8.2, phosphorus 2. Albumin 2.5. ASSESSMENT AND PLAN: 1. Severe epigastric pain, suspect the patient may have gastric ulcers. The patient does have risks including a long history of gastroesophageal reflux disease (GERD) and chronic prednisone use. The patient has scheduled upper endoscopy by Dr. Raphael this afternoon. The patient will be place nothing by mouth. There is currently intravenous (IV) Protonix twice a day and GI cocktail as needed. 2. Degenerative arthritis exacerbation. Continue on prednisone 20 mg by mouth daily. We have supplemented with Percocet to control the acute pain. 3. Right-sided neck pain. Will follow with a CT of the neck to rule out any possible fractures. The patient does have a history of frequent falls. 4. Generalized weakness due to poor nutrition, due to severe abdominal pain causing oral intake intolerance. We will continue to achieve better pain control and follow with the esophagogastroduodenoscopy (EGD) results. The patient is to continue to follow with physical therapy. 5. Hypertension. May be related to patient's pain. Every time the patient has pain exacerbation, blood pressure will be very uncontrolled at home. The patient has been taking lisinopril 10 mg by mouth daily. Due to acute kidney injury (IBAN), lisinopril has been on hold. On reviewing the patient's vitals history, even without any lisinopril, the patient has good blood pressure which is in the satisfactory range when the patient does not have any pain. 6. Depression. On Celexa. 7. Acute kidney injury secondary to poor oral intake and dehydration, resolved. 8. History of migraine, on Maxalt as needed. 8. Deep venous thrombosis (DVT) prophylaxis on heparin.
[2016-11-03] MEDS: ONDANSETRON 4MG/2ML VIAL (J2405) IV PRN (18:03)
[2016-11-03] MEDS: GI COCKTAIL 50ML BTL(HYOSCYAMINE/MAALOX/LIDOCAINE VISCOUS)(1:3:1) PO PRN (18:51)
[2016-11-03 21:00] LABS: MEAN CORPUSCULAR HEMOGLOBIN 30.8 pg (27.0-33.0); MEAN CORPUSCULAR HGB CONC 33.9 g/dl (32.0-36.5); MEAN CORPUSCULAR VOLUME 90.9 fl (80.0-96.0); RED CELL DISTRIBUTION WIDTH 12.8 % (11.5-14.5); WHITE BLOOD COUNT 10.4 K/mm3 (4.0-10.0)
[2016-11-03] MEDS: LATANOPROST 0.005% OPHTH SOLN 2.5 ML OU SCH (21:27)
[2016-11-04] VITALS (7 sets, daily range): BP systolic 103–149; BP diastolic 52–85
[2016-11-04] MEDS ORDERED: MORPHINE 2 MG/ML 1ML SYRINGE IV PRN (01:00)
[2016-11-04] MEDS: NS 1,000 ML IV SCH ×3 (03:09→17:50)
[2016-11-04] MEDS: GI COCKTAIL 50ML BTL(HYOSCYAMINE/MAALOX/LIDOCAINE VISCOUS)(1:3:1) PO PRN ×3 (03:11→19:27)
[2016-11-04] MEDS: METHOCARBAMOL 500 MG TAB PO SCH ×5 (05:21→20:25)
[2016-11-04] MEDS: SUCRALFATE SUSP 1GM/10ML UD PO SCH ×3 (05:21→17:18)
[2016-11-04] MEDS: HEPARIN SOD (PORCINE) 5000 UNITS/ML VIAL SQ SCH ×3 (05:22→20:25)
[2016-11-04] MEDS: SODIUM CHLORIDE 0.9% INJ 10 ML SYR IV SCH ×2 (05:44→17:18)
[2016-11-04 05:58] LABS: MEAN CORPUSCULAR HEMOGLOBIN 31.1 pg (27.0-33.0); MEAN CORPUSCULAR HGB CONC 34.4 g/dl (32.0-36.5); MEAN CORPUSCULAR VOLUME 90.2 fl (80.0-96.0); RED CELL DISTRIBUTION WIDTH 12.6 % (11.5-14.5); WHITE BLOOD COUNT 10.4 K/mm3 (4.0-10.0)
[2016-11-04 06:14] LABS: ALBUMIN 2.4 GM/DL (3.2-5.2); ANION GAP 12 MEQ/L (8-16); BLOOD UREA NITROGEN 21 MG/DL (7-18); CALCIUM LEVEL 7.5 MG/DL (8.5-10.1); CARBON DIOXIDE LEVEL 24 MEQ/L (21-32); CHLORIDE LEVEL 97 MEQ/L (98-107); GLOMERULAR FILTRATION RATE > 60.0 (>56); GLUCOSE, FASTING 300 MG/DL (70-105); PHOSPHORUS LEVEL 2.3 MG/DL (2.5-4.9); POTASSIUM SERUM 4.8 MEQ/L (3.5-5.1); SODIUM LEVEL 133 MEQ/L (136-145)
[2016-11-04] MEDS: HumaLOG INSULIN (NovoLOG) PER UNIT SC SCH ×3 (06:22→17:17)
[2016-11-04] MEDS: predniSONE 20 MG TAB PO SCH (09:00)
[2016-11-04] MEDS: NYSTATIN 500,000 U/5 ML SUSP UDC PO SCH ×4 (09:50→20:24)
[2016-11-04] MEDS: methylPREDNISolone INJ 125 MG/2 ML VIAL (J2930) IV SCH ×2 (09:50→20:26)
[2016-11-04] MEDS: CitaloPRAM (CeleXA) 20 MG TAB PO SCH (09:50)
[2016-11-04] MEDS: PANTOPRAZOLE 40MG INJ (PROTONIX) (C9113) IV SCH ×2 (09:50→20:24)
[2016-11-04] MEDS: ATORVASTATIN 20 MG TAB PO SCH (09:51)
[2016-11-04] MEDS: amLODIPine 5 MG TAB PO SCH (09:51)
[2016-11-04] MEDS: COSOPT OCUMETER PLUS 10ML (DORZOLAMIDE/TIMOLOL) OU SCH ×2 (09:52→20:27)
[2016-11-04] MEDS: ASPIRIN 81 MG ENTERIC TAB PO SCH (09:52)
[2016-11-04] MEDS: MORPHINE 2 MG/ML 1ML SYRINGE IV PRN (10:12)
--- NOTE | 2016-11-04 18:26 | IPN ---
DATE: 11/04/2016 SUBJECTIVE: Patient seen and examined in the room today. The patient continues to complain about excruciating pain at the right neck. Still has great intolerance to any type of oral intake. OBJECTIVE: VITAL SIGNS: Temperature is 97.9, pulse 83, respiratory rate 20, blood pressure 148/85, pulse oximetry 100% on room air. GENERAL: Moderate distress secondary to persistent neck pain. Alert and oriented times three. HEENT: Tenderness to palpation in the suboccipital region. Normocephalic, atraumatic. CARDIOVASCULAR: Positive S1, S2. Regular rate. LUNGS: Decreased breath sounds bilaterally, otherwise clear to auscultation bilaterally. ABDOMEN: Soft, nontender, nondistended. Bowel sounds present. No rebound, no guarding. EXTREMITIES: No edema. No sign of cyanosis. LABORATORY DATA: WBC is 16.4, hemoglobin 10.4, hematocrit 30.3, platelet count 450. Sodium 133, potassium 4.8, chloride 97, carbon dioxide 24, BUN 21, creatinine 0.9, GFR greater than 60, fasting glucose 300. Calcium is 7.5, phosphorus 2.3. Albumin 2.4. ASSESSMENT AND PLAN: 1. Severe epigastric pain. The patient had upper endoscopy performed by Dr. Raphael on 11/03/2016. The patient was found to have [place] ([place]) grade D monilial esophagitis and acute gastritis. On the scope findings, there is one or more mucosal breaks involving at least 75% esophagus circumference. The patient is continued on intravenous (IV) Protonix and gastrointestinal (GI) cocktail, while awaiting for pathology results. The patient will be on Nystatin suspension by mouth four times a day for one week. Will also follow with HIV test. 2. Giant cell arteritis exacerbation. We will start a trial of prednisone escalation. Patient currently complaining of severe pain. We will control the pain with the pain medications. 3. Generalized weakness secondary to poor nutrition, due to severe gastritis and esophagitis. The patient has significant epigastric pain and nausea and vomiting with most oral intake. Patient is currently on intravenous (IV) fluid running 125 mL per hour. 4. Hypertension. Currently has a large fluctuation of the pain elevation most likely secondary to intermittent pain exacerbation. We will continue him on Norvasc 5 mg by mouth daily. 5. Depression, on Celexa. 6. Acute kidney injury secondary to poor oral intake, resolved. 7. Migraine, on Maxalt as needed. 8. Deep venous thrombosis (DVT) prophylaxis on heparin.
[2016-11-04] MEDS: LATANOPROST 0.005% OPHTH SOLN 2.5 ML OU SCH (20:27)
[2016-11-05] MEDS: HumaLOG INSULIN (NovoLOG) PER UNIT SC SCH ×5 (00:43→22:19)
[2016-11-05] MEDS: METHOCARBAMOL 500 MG TAB PO SCH ×6 (00:46→21:59)
[2016-11-05] MEDS: MORPHINE 2 MG/ML 1ML SYRINGE IV PRN (00:47)
[2016-11-05] MEDS: LEVEMIR (INSULIN DETEMIR) 1 UNITS/0.01ML SC SCH ×2 (01:22→22:03)
[2016-11-05] MEDS: SUCRALFATE SUSP 1GM/10ML UD PO SCH ×4 (05:06→17:46)
[2016-11-05] MEDS: HEPARIN SOD (PORCINE) 5000 UNITS/ML VIAL SQ SCH ×3 (05:07→22:02)
[2016-11-05] MEDS: SODIUM CHLORIDE 0.9% INJ 10 ML SYR IV SCH ×2 (05:07→17:44)
[2016-11-05 05:30] VITALS: BP_SYST 12; BP_SYST 129; BP_SYST 144; BP_SYST 148; BP_SYST 198; BP_DIAS 71; BP_DIAS 72; BP_DIAS 74; BP_DIAS 98
[2016-11-05 05:31] LABS: MEAN CORPUSCULAR HGB CONC 34.9 g/dl (32.0-36.5); MEAN CORPUSCULAR VOLUME 88.9 fl (80.0-96.0); RED CELL DISTRIBUTION WIDTH 12.7 % (11.5-14.5); WHITE BLOOD COUNT 10.8 K/mm3 (4.0-10.0)
[2016-11-05 05:52] LABS: ALBUMIN 2.4 GM/DL (3.2-5.2); ANION GAP 7 MEQ/L (8-16); BLOOD UREA NITROGEN 21 MG/DL (7-18); CALCIUM LEVEL 8.1 MG/DL (8.5-10.1); CARBON DIOXIDE LEVEL 29 MEQ/L (21-32); CHLORIDE LEVEL 95 MEQ/L (98-107); CREATININE FOR GFR 0.96 MG/DL (0.70-1.30); GLOMERULAR FILTRATION RATE > 60.0 (>56); GLUCOSE, FASTING 333 MG/DL (70-105); PHOSPHORUS LEVEL 2.8 MG/DL (2.5-4.9); POTASSIUM SERUM 4.6 MEQ/L (3.5-5.1); SODIUM LEVEL 131 MEQ/L (136-145)
[2016-11-05 06:00] VITALS: BP 148/72
[2016-11-05] MEDS: GI COCKTAIL 50ML BTL(HYOSCYAMINE/MAALOX/LIDOCAINE VISCOUS)(1:3:1) PO PRN ×2 (08:00→22:33)
[2016-11-05] MEDS: methylPREDNISolone INJ 125 MG/2 ML VIAL (J2930) IV SCH ×2 (10:20→22:02)
[2016-11-05] MEDS: SODIUM CHLORIDE 0.9% INJ 10 ML SYR IV PRN (10:21)
[2016-11-05] MEDS: NYSTATIN 500,000 U/5 ML SUSP UDC PO SCH ×4 (10:21→21:59)
[2016-11-05] MEDS: PANTOPRAZOLE 40MG INJ (PROTONIX) (C9113) IV SCH ×2 (10:21→22:02)
[2016-11-05] MEDS: CitaloPRAM (CeleXA) 20 MG TAB PO SCH (10:22)
[2016-11-05] MEDS: ATORVASTATIN 20 MG TAB PO SCH (10:22)
[2016-11-05] MEDS: ASPIRIN 81 MG ENTERIC TAB PO SCH (10:22)
[2016-11-05] MEDS: COSOPT OCUMETER PLUS 10ML (DORZOLAMIDE/TIMOLOL) OU SCH ×2 (10:22→21:59)
[2016-11-05] MEDS: amLODIPine 5 MG TAB PO SCH (10:25)
--- NOTE | 2016-11-05 13:29 | IPN ---
DATE: 11/05/2016 SUBJECTIVE: Patient seen and examined in the room today. The patient says with the initiation of the IV steroids his neck pain is improving. He only required limited dose of IV morphine. Still complains about significant epigastric pain during most oral intake. OBJECTIVE: VITAL SIGNS: Temperature is 97.8, pulse 70, respiratory rate 16, blood pressure supine 140/72 and sitting 144/74 and standing 129/71. GENERAL: Mild to moderate distress secondary to persistent neck pain. Alert and oriented times three. HEENT: Normocephalic, atraumatic. Extraocular movements intact. CARDIOVASCULAR: Positive S1, S2. Regular rate. LUNGS: Decreased breath sounds bilaterally, otherwise clear to auscultation bilaterally. ABDOMEN: Soft, nontender, nondistended. Bowel sounds present. No rebound, no guarding. EXTREMITIES: No edema. No sign of cyanosis. LABORATORY DATA: WBC 10.1, hemoglobin 10.4, hematocrit 29.7, platelet count 411. Sodium 131, potassium 4.6, chloride 95, carbon dioxide 29, BUN 21, creatinine 0.96, GFR greater than 60, fasting glucose 333, calcium is 8.1, phosphorus 2.8, albumin 2.4. ASSESSMENT AND PLAN: 1. Giant cell arteritis. The patient had an acute flare. The patient has been on oral prednisone at baseline. Will have to switch to IV Solu-Medrol to control the exacerbation. 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 2. Candidal esophagitis and gastritis. Pathology was pending. The patient started on Nystatin. Will advance the patient's diet as tolerated. 3. Generalized weakness secondary to gastritis and esophagitis related pain. The patient is currently taking GI cocktail and IV Protonix twice a day. 4. Hypertension. Intermittent hypertension occurred mostly at the time the patient has severe pain. Continue to monitor. 5. Depression, on Celexa. 6. Acute kidney injury secondary to poor oral intake, resolved. 7. Migraine headache, on Maxalt as needed. 8. Deep venous thrombosis (DVT) prophylaxis, on heparin. MTDD
[2016-11-05 14:00] VITALS: BP_SYST 146; BP_SYST 85; BP_SYST 99; BP_DIAS 52; BP_DIAS 62; BP_DIAS 78
[2016-11-05] MEDS: NS 1,000 ML IV SCH ×2 (15:02→22:03)
[2016-11-05] MEDS: LATANOPROST 0.005% OPHTH SOLN 2.5 ML OU SCH (22:03)
[2016-11-05 22:05] VITALS: BP 149/77
[2016-11-06] MEDS: METHOCARBAMOL 500 MG TAB PO SCH ×6 (00:33→21:40)
[2016-11-06] MEDS: SUCRALFATE SUSP 1GM/10ML UD PO SCH ×4 (00:33→17:38)
[2016-11-06] MEDS: PERCOCET 5MG/325MG TAB PO PRN ×2 (03:56→18:16)
[2016-11-06] MEDS: HEPARIN SOD (PORCINE) 5000 UNITS/ML VIAL SQ SCH ×3 (05:30→21:41)
[2016-11-06] MEDS: NS 1,000 ML IV SCH ×3 (05:31→22:35)
[2016-11-06] MEDS: SODIUM CHLORIDE 0.9% INJ 10 ML SYR IV SCH ×2 (05:31→17:41)
[2016-11-06 05:50] VITALS: BP 169/84
[2016-11-06 06:00] LABS: MEAN CORPUSCULAR HEMOGLOBIN 30.4 pg (27.0-33.0); MEAN CORPUSCULAR HGB CONC 34.3 g/dl (32.0-36.5); MEAN CORPUSCULAR VOLUME 88.5 fl (80.0-96.0); RED CELL DISTRIBUTION WIDTH 13.1 % (11.5-14.5); WHITE BLOOD COUNT 10.5 K/mm3 (4.0-10.0)
[2016-11-06 06:25] LABS: ALBUMIN 2.5 GM/DL (3.2-5.2); ANION GAP 7 MEQ/L (8-16); BLOOD UREA NITROGEN 20 MG/DL (7-18); CALCIUM LEVEL 8.3 MG/DL (8.5-10.1); CARBON DIOXIDE LEVEL 29 MEQ/L (21-32); CHLORIDE LEVEL 98 MEQ/L (98-107); CREATININE FOR GFR 0.82 MG/DL (0.70-1.30); GLOMERULAR FILTRATION RATE > 60.0 (>56); GLUCOSE, FASTING 268 MG/DL (70-105); POTASSIUM SERUM 4.6 MEQ/L (3.5-5.1); SODIUM LEVEL 134 MEQ/L (136-145)
[2016-11-06] MEDS: PANTOPRAZOLE 40MG INJ (PROTONIX) (C9113) IV SCH ×2 (08:47→21:39)
[2016-11-06] MEDS: HumaLOG INSULIN (NovoLOG) PER UNIT SC SCH ×4 (08:48→21:00)
[2016-11-06] MEDS: ASPIRIN 81 MG ENTERIC TAB PO SCH (08:49)
[2016-11-06] MEDS: NYSTATIN 500,000 U/5 ML SUSP UDC PO SCH ×4 (08:49→21:40)
[2016-11-06] MEDS: CitaloPRAM (CeleXA) 20 MG TAB PO SCH (08:49)
[2016-11-06] MEDS: ATORVASTATIN 20 MG TAB PO SCH (08:49)
[2016-11-06] MEDS: COSOPT OCUMETER PLUS 10ML (DORZOLAMIDE/TIMOLOL) OU SCH ×2 (08:50→21:41)
[2016-11-06] MEDS: amLODIPine 5 MG TAB PO SCH (08:55)
[2016-11-06] MEDS: methylPREDNISolone INJ 125 MG/2 ML VIAL (J2930) IV SCH (08:56)
[2016-11-06 09:00] VITALS: BP_SYST 100; BP_SYST 120; BP_SYST 80; BP_DIAS 54; BP_DIAS 60; BP_DIAS 70
[2016-11-06] MEDS: GI COCKTAIL 50ML BTL(HYOSCYAMINE/MAALOX/LIDOCAINE VISCOUS)(1:3:1) PO PRN ×2 (10:25→16:26)
[2016-11-06 14:00] VITALS: BP 165/80
[2016-11-06 15:00] VITALS: BP_SYST 120; BP_SYST 80; BP_DIAS 68; BP_DIAS 70; BP_DIAS 80
--- NOTE | 2016-11-06 15:09 | IPN ---
DATE: 11/06/2016 SUBJECTIVE: The patient is seen and examined in the room today. The patient still complains about significant pain with oral intake, required frequent gastrointestinal (GI) cocktail usage. With elevated steroids, the patient's neck pain and skull pain from giant cell arteritis flare has been improving. OBJECTIVE: VITAL SIGNS: Temperature is 98.1, pulse is 78, respiratory rate 16, orthostatic blood pressure is positive, most recent blood pressure is 165/80. Oxygen saturation is 100% in room air. GENERAL: Mild distress secondary to abdominal pain shortly after oral intake. Alert and oriented times three. HEENT: Normocephalic, atraumatic. Extraocular motor grossly intact. CARDIOVASCULAR: Positive S1, S2. Regular rate. LUNGS: Clear to auscultation bilaterally. ABDOMEN: Tenderness to palpation in the epigastric region. EXTREMITIES: No edema. No sign of cyanosis. LABORATORY DATA: WBC 10.5, hemoglobin 10.2, hematocrit 29.6, platelet count 373. Sodium is 134, potassium is 4.6, chloride is 98, carbon dioxide 29, BUN 20, creatinine 0.82, GFR greater than 60, fasting glucose 268, calcium is 8.3, phosphorus 2, albumin 2.5. ASSESSMENT AND PLAN: 1. Esophagitis and gastritis. Esophagogastroduodenoscopy (EGD) was performed by Dr. Raphael on 11/03/2016, which showed grade D esophagitis, acute gastritis. More than 35% esophageal circumference affected. The patient is currently on IV Protonix twice a day and covered with frequent sucralfate. The patient is also on Nystatin 10 mL by mouth four times a day. The dosage per Dr. Raphael's recommendations was one week. 2. Giant cell arteritis. The patient did have an acute flare resulting in severe skull and right neck pain. The patient was started on IV Solu-Medrol previously and it has started to control the exacerbation. We will start tapering down the steroids. 3. Type 1 diabetes. The patient had an insulin pump. However, it was shut off during this admission. The patient has been covered with long-acting and short-acting insulin. Due to concurrent steroid use, the patient remains to have elevated glucose which we will actively adjust the Levemir dose as needed. 4. Generalized weakness, secondary to gastritis and esophagitis resulting in poor oral intake. The patient continues to have significant orthostatics even though the patient has been receiving continued IV support. 5. Hypertension. The patient is on amlodipine 5 mg by mouth daily. 6. Acute kidney injury secondary to poor oral intake, resolved. 7. Migraine headache, on Maxalt as needed. 8. Deep venous thrombosis (DVT) prophylaxis, on heparin.
[2016-11-06] MEDS ORDERED: predniSONE 20 MG TAB PO SCH (21:00)
[2016-11-06] MEDS: LEVEMIR (INSULIN DETEMIR) 1 UNITS/0.01ML SC SCH (21:00)
[2016-11-06] MEDS: MORPHINE 2 MG/ML 1ML SYRINGE IV PRN (21:42)
[2016-11-06] MEDS: LATANOPROST 0.005% OPHTH SOLN 2.5 ML OU SCH (21:42)
[2016-11-06 22:00] VITALS: BP_SYST 102; BP_SYST 120; BP_SYST 160; BP_SYST 80; BP_DIAS 65; BP_DIAS 70; BP_DIAS 74; BP_DIAS 80
[2016-11-07] MEDS: METHOCARBAMOL 500 MG TAB PO SCH ×6 (00:15→21:32)
[2016-11-07] MEDS: SUCRALFATE SUSP 1GM/10ML UD PO SCH ×4 (00:15→17:22)
[2016-11-07] MEDS: PERCOCET 5MG/325MG TAB PO PRN ×3 (00:16→18:42)
[2016-11-07] MEDS: HEPARIN SOD (PORCINE) 5000 UNITS/ML VIAL SQ SCH ×3 (05:45→21:33)
[2016-11-07] MEDS: SODIUM CHLORIDE 0.9% INJ 10 ML SYR IV SCH ×2 (05:46→17:23)
[2016-11-07 06:00] VITALS: BP_SYST 120; BP_SYST 155; BP_SYST 168; BP_SYST 99; BP_DIAS 62; BP_DIAS 80; BP_DIAS 84; BP_DIAS 87
[2016-11-07 06:05] LABS: MEAN CORPUSCULAR HEMOGLOBIN 30.8 pg (27.0-33.0); MEAN CORPUSCULAR HGB CONC 34.6 g/dl (32.0-36.5); MEAN CORPUSCULAR VOLUME 88.9 fl (80.0-96.0); RED CELL DISTRIBUTION WIDTH 12.9 % (11.5-14.5); WHITE BLOOD COUNT 8.9 K/mm3 (4.0-10.0)
[2016-11-07] MEDS: NS 1,000 ML IV SCH ×2 (06:18→13:09)
[2016-11-07 06:44] LABS: ALBUMIN 2.5 GM/DL (3.2-5.2); ANION GAP 10 MEQ/L (8-16); BLOOD UREA NITROGEN 18 MG/DL (7-18); CALCIUM LEVEL 8.2 MG/DL (8.5-10.1); CARBON DIOXIDE LEVEL 26 MEQ/L (21-32); CHLORIDE LEVEL 101 MEQ/L (98-107); CREATININE FOR GFR 0.69 MG/DL (0.70-1.30); GLOMERULAR FILTRATION RATE > 60.0 (>56); GLUCOSE, FASTING 202 MG/DL (70-105); PHOSPHORUS LEVEL 1.6 MG/DL (2.5-4.9); POTASSIUM SERUM 4.2 MEQ/L (3.5-5.1); SODIUM LEVEL 137 MEQ/L (136-145)
[2016-11-07] MEDS: K-PHOS NEUTRAL 250MG TABLET (SOD.PHOSPHATE/POT.PHOSPHATE) PO SCH ×2 (08:50→21:32)
[2016-11-07] MEDS: PANTOPRAZOLE 40MG INJ (PROTONIX) (C9113) IV SCH ×2 (08:50→21:32)
[2016-11-07] MEDS: ATORVASTATIN 20 MG TAB PO SCH (08:50)
[2016-11-07] MEDS: NYSTATIN 500,000 U/5 ML SUSP UDC PO SCH ×2 (08:51→12:11)
[2016-11-07] MEDS: HumaLOG INSULIN (NovoLOG) PER UNIT SC SCH ×4 (08:54→20:33)
[2016-11-07] MEDS: LEVEMIR (INSULIN DETEMIR) 1 UNITS/0.01ML SC SCH ×2 (08:54→21:00)
[2016-11-07] MEDS: CitaloPRAM (CeleXA) 20 MG TAB PO SCH (08:58)
[2016-11-07] MEDS: predniSONE 20 MG TAB PO SCH ×2 (08:58→21:32)
[2016-11-07] MEDS: COSOPT OCUMETER PLUS 10ML (DORZOLAMIDE/TIMOLOL) OU SCH ×2 (08:59→21:34)
[2016-11-07] MEDS: ASPIRIN 81 MG ENTERIC TAB PO SCH (08:59)
[2016-11-07] MEDS: amLODIPine 5 MG TAB PO SCH (09:05)
[2016-11-07] MEDS: GI COCKTAIL 50ML BTL(HYOSCYAMINE/MAALOX/LIDOCAINE VISCOUS)(1:3:1) PO PRN ×2 (09:45→19:44)
[2016-11-07 13:45] VITALS: BP_SYST 134; BP_SYST 136; BP_SYST 142; BP_DIAS 100; BP_DIAS 64; BP_DIAS 83
[2016-11-07 14:00] VITALS: BP 134/64
[2016-11-07] MEDS ORDERED: FLUCONAZOLE 200 MG in APPROPRIATE DILUENT 1 EA IV SCH (15:00)
--- NOTE | 2016-11-07 15:12 | IPNPDOC ---
Subjective Date Seen The patient was seen on 11/07/16. Subjective Chief Complaint/HPI Patient seen and examined at the bedside today. States that the epigastric pain upon swallowing has somewhat improved over the last few days. Denies any other acute complaints at this time. Objective Physical Examination General Exam: Positive: Alert, Cooperative, No Acute Distress ENT Exam: Positive: Atraumatic, Mucous membr. moist/pink Neck Exam: Negative: JVD Chest Exam: Positive: Clear to auscultation, Normal air movement Heart Exam: Positive: Rate Normal, Normal S1, Normal S2 Abdomen Exam: Positive: Soft, Negative: Tenderness Extremity Exam: Negative: Tenderness, Swelling Psych Exam: Positive: Oriented x 3 Assessment /Plan Plan/VTE VTE Prophylaxis Ordered?: Yes Plan Esophagitis with Gastritis EGD done on 11/03/[address] Raphael revealed grade D Esophagitis with no bleeding noted in the lower third of the esophagus. There was also mild segmental inflammation characterized by congestion and erythema found in the cardia. Biopsy results of the distal esophagus suggestive of stromal tissue with abundant acute and chronic inflammation Stomach biopsy with no significant pathologic change, no Helicobacter organisms identified. The patient's esophagitis is possibly attributable to underlying monilial esophagitis as per surgery The patient was initially started on nystatin suspension, but now has been changed to Diflucan. We will continue with Protonix twice a day, and Carafate. When necessary GI cocktail has also been ordered The patient states that his symptoms have mildly improved, but still notes burning in the epigastric region only when eating. I've advised the patient to abstain from certain foods that could exacerbate his symptoms such as alcohol, caffeine, carbonated drinks, chocolate, etc. We will continue to monitor the patient's progress at this time Appreciate surgical input. Type 1 diabetes mellitus The patient does follow with endocrinology in [place]. He uses an insulin pump at baseline, however the patient states that it has been malfunctioning over the last few days. The patient has been switched over to Levemir and an insulin sliding scale here. 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 Giant cell arteritis Follows with rheumatology as an outpatient The patient did apparently suffer a flareup of skull pain a few days ago, and he was given a stronger dose steroid therapy. At this time, the patient's flareup has resolved We will continue to down taper his steroid therapy back to his baseline of prednisone 20 mg daily Hypertension, stable Continue Norvasc Anxiety, depression, stable Continue Celexa DVT prophylaxis Heparin subcutaneously Disposition-we will continue to monitor the patient's symptoms of epigastric pain and follow-up with surgical recommendations. Physical therapy on board for functional optimization. VS, I&O, 24H, Fishbone Vital Signs/I&O Vital Signs Date Time Temp Pulse Resp B/P (MAP) Pulse Ox O2 Delivery O2 Flow Rate FiO2 11/07/16 14:00 97.3 96 20 134/64 (87) 98 Room Air I&O- Last 24 Hours up to 6 AM 11/07/16 06:00 Intake Total 1920 ml Output Total 5110 ml Balance -3190 ml Laboratory Data 24H LABS Laboratory Tests 2 11/06/16 16:37: Bedside Glucose (Misc Panel) 336H 11/06/16 20:40: Bedside Glucose (Misc Panel) 322H 11/07/16 05:51: Blood Urea Nitrogen 18, Creatinine 0.69L, Sodium Level 137, Potassium Level 4.2 , Chloride Level 101, Carbon Dioxide Level 26, Anion Gap 10, Glomerular Filtration Rate > 60.0, Calcium Level 8.2L, Phosphorus Level 1.6L, Albumin 2.5L 11/07/16 07:19: Bedside Glucose (Misc Panel) 217H 11/07/16 12:00: Bedside Glucose (Misc Panel) 302H CBC/BMP Laboratory Tests 11/07/16 05:49 Red Blood Count 3.43 L, Mean Corpuscular Volume 88.9, Mean Corpuscular Hemoglobin 30.8, Mean Corpuscular Hemoglobin Concent 34.6, Red Cell Distribution Width 12.9 11/07/16 05:51 Anion Gap 10 Microbiology Microbiology 10/31/16 Blood Culture - Final, Complete NO GROWTH AFTER 5 DAYS 10/31/16 Blood Culture - Final, Complete NO GROWTH AFTER 5 DAYS CONCETTA HAYNES MD Nov 07, 2016 15:12
[2016-11-07] MEDS: FLUCONAZOLE 200 MG in APPROPRIATE DILUENT 1 EA IV SCH (16:25)
[2016-11-07] MEDS: LATANOPROST 0.005% OPHTH SOLN 2.5 ML OU SCH (21:34)
[2016-11-07] MEDS: ACETAMINOPHEN TAB 650MG DOSE (2X325MG) PO PRN (21:49)
[2016-11-07 22:00] VITALS: BP_SYST 138; BP_SYST 148; BP_SYST 150; BP_DIAS 66; BP_DIAS 72; BP_DIAS 84; BP_DIAS 86
[2016-11-08] MEDS: SUCRALFATE SUSP 1GM/10ML UD PO SCH ×4 (00:16→18:01)
[2016-11-08] MEDS: NS 1,000 ML IV SCH ×3 (00:16→16:40)
[2016-11-08] MEDS: METHOCARBAMOL 500 MG TAB PO SCH ×6 (00:16→21:26)
[2016-11-08] MEDS: HEPARIN SOD (PORCINE) 5000 UNITS/ML VIAL SQ SCH ×3 (05:17→21:25)
[2016-11-08] MEDS: SODIUM CHLORIDE 0.9% INJ 10 ML SYR IV SCH ×2 (05:18→18:02)
[2016-11-08 06:00] VITALS: BP_SYST 126; BP_SYST 132; BP_SYST 137; BP_SYST 148; BP_DIAS 64; BP_DIAS 68; BP_DIAS 72; BP_DIAS 84
[2016-11-08 06:44] LABS: MEAN CORPUSCULAR HEMOGLOBIN 30.2 pg (27.0-33.0); RED CELL DISTRIBUTION WIDTH 13.3 % (11.5-14.5); WHITE BLOOD COUNT 10.7 K/mm3 (4.0-10.0)
[2016-11-08] MEDS: ONDANSETRON 4MG/2ML VIAL (J2405) IV PRN (06:53)
[2016-11-08 07:01] LABS: ANION GAP 10 MEQ/L (8-16); BLOOD UREA NITROGEN 14 MG/DL (7-18); CALCIUM LEVEL 7.8 MG/DL (8.5-10.1); CARBON DIOXIDE LEVEL 25 MEQ/L (21-32); CHLORIDE LEVEL 102 MEQ/L (98-107); GLOMERULAR FILTRATION RATE > 60.0 (>56); GLUCOSE, FASTING 144 MG/DL (70-105); PHOSPHORUS LEVEL 2.4 MG/DL (2.5-4.9); POTASSIUM SERUM 4.1 MEQ/L (3.5-5.1); SODIUM LEVEL 137 MEQ/L (136-145)
[2016-11-08] MEDS: PERCOCET 5MG/325MG TAB PO PRN (07:06)
[2016-11-08] MEDS: ASPIRIN 81 MG ENTERIC TAB PO SCH (08:09)
[2016-11-08] MEDS: GI COCKTAIL 50ML BTL(HYOSCYAMINE/MAALOX/LIDOCAINE VISCOUS)(1:3:1) PO PRN ×2 (08:09→19:01)
[2016-11-08] MEDS: predniSONE 20 MG TAB PO SCH ×2 (08:10→21:26)
[2016-11-08] MEDS: PANTOPRAZOLE 40MG INJ (PROTONIX) (C9113) IV SCH ×2 (08:10→21:27)
[2016-11-08] MEDS: CitaloPRAM (CeleXA) 20 MG TAB PO SCH (08:10)
[2016-11-08] MEDS: ATORVASTATIN 20 MG TAB PO SCH (08:10)
[2016-11-08] MEDS: HumaLOG INSULIN (NovoLOG) PER UNIT SC SCH ×4 (08:11→21:18)
[2016-11-08] MEDS: COSOPT OCUMETER PLUS 10ML (DORZOLAMIDE/TIMOLOL) OU SCH ×2 (08:11→21:26)
[2016-11-08] MEDS: LEVEMIR (INSULIN DETEMIR) 1 UNITS/0.01ML SC SCH ×2 (08:11→21:26)
[2016-11-08] MEDS: amLODIPine 5 MG TAB PO SCH (08:12)
--- NOTE | 2016-11-08 14:07 | IPNPDOC ---
Subjective Date Seen The patient was seen on 11/08/16. Subjective Chief Complaint/HPI Patient seen and examined at the bedside this morning. He states that his epigastric pain is improved and he is looking forward to eating breakfast this morning to see if his symptoms have resolved Objective Physical Examination General Exam: Positive: Alert, Cooperative, No Acute Distress ENT Exam: Positive: Atraumatic, Mucous membr. moist/pink Neck Exam: Negative: JVD Chest Exam: Positive: Clear to auscultation, Normal air movement Heart Exam: Positive: Rate Normal, Normal S1, Normal S2 Abdomen Exam: Positive: Soft, Negative: Tenderness Extremity Exam: Negative: Tenderness, Swelling Psych Exam: Positive: Oriented x 3 Assessment /Plan Plan/VTE VTE Prophylaxis Ordered?: Yes Plan Esophagitis with Gastritis EGD done on 11/03/[address] Raphael revealed grade D Esophagitis with no bleeding noted in the lower third of the esophagus. There was also mild segmental inflammation characterized by congestion and erythema found in the cardia. Biopsy results of the distal esophagus suggestive of stromal tissue with abundant acute and chronic inflammation Stomach biopsy with no significant pathologic change, no Helicobacter organisms identified. The patient's esophagitis is possibly attributable to underlying monilial esophagitis as per surgery The patient was initially started on nystatin suspension, but now has been changed to Diflucan. We will continue with Protonix twice a day, and Carafate. When necessary GI cocktail has also been ordered The patient states that his symptoms have continued to improved, but still notes some burning in the epigastric region only when eating. I've advised the patient to abstain from certain foods that could exacerbate his symptoms such as alcohol, caffeine, carbonated drinks, chocolate, etc. We will continue to monitor the patient's progress at this time Appreciate surgical input. Type 1 diabetes mellitus The patient does follow with endocrinology in [place]. He uses an insulin pump at baseline, however the patient states that it has been malfunctioning over the last few days. The patient has been switched over to Levemir and an insulin sliding scale here. We will likely discharge the patient on subcutaneous insulin and advised him to follow-up with his wood grainer for further evaluation of his insulin pump. Giant cell arteritis Follows with rheumatology as an outpatient The patient did apparently suffer a flareup of skull pain a few days ago, and he was given a stronger dose steroid therapy. At this time, the patient's flareup has resolved We will continue to down taper his steroid therapy back to his baseline of prednisone 20 mg daily Hypertension, stable Continue Norvasc Anxiety, depression, stable Continue Celexa DVT prophylaxis Heparin subcutaneously Disposition-we will continue to monitor the patient's symptoms of epigastric pain and follow-up with progress. Physical therapy on board for functional optimization. VS, I&O, 24H, Fishbone Vital Signs/I&O Vital Signs Date Time Temp Pulse Resp B/P (MAP) Pulse Ox O2 Delivery O2 Flow Rate FiO2 11/08/16 08:12 75 126/72 11/08/16 07:36 18 11/08/16 06:00 97.8 99 Room Air I&O- Last 24 Hours up to 6 AM 11/08/16 06:00 Intake Total 4900 ml Output Total 4650 ml Balance 250 ml Laboratory Data 24H LABS Laboratory Tests 2 11/07/16 16:51: Bedside Glucose (Misc Panel) 380H 11/07/16 20:18: Bedside Glucose (Misc Panel) 242H 11/08/16 06:24: Anion Gap 10, Glomerular Filtration Rate > 60.0, Blood Urea Nitrogen 14, Creatinine 0.80, Sodium Level 137, Potassium Level 4.1, Chloride Level 102, Carbon Dioxide Level 25, Calcium Level 7.8L, Phosphorus Level 2.4#L 11/08/16 12:02: Bedside Glucose (Misc Panel) 360H CBC/BMP Laboratory Tests 11/08/16 06:24 Red Blood Count 3.75 L, Mean Corpuscular Volume 89.0, Mean Corpuscular Hemoglobin 30.2, Mean Corpuscular Hemoglobin Concent 34.0, Red Cell Distribution Width 13.3, Calcium Level 7.8 L Microbiology Microbiology 10/31/16 Blood Culture - Final, Complete NO GROWTH AFTER 5 DAYS 10/31/16 Blood Culture - Final, Complete NO GROWTH AFTER 5 DAYS CONCETTA HAYNES MD Nov 08, 2016 14:07
[2016-11-08] MEDS: FLUCONAZOLE 200 MG in APPROPRIATE DILUENT 1 EA IV SCH (16:40)
[2016-11-08] MEDS: MORPHINE 2 MG/ML 1ML SYRINGE IV PRN (21:10)
[2016-11-08] MEDS: LATANOPROST 0.005% OPHTH SOLN 2.5 ML OU SCH (21:26)
[2016-11-08 22:00] VITALS: BP 155/78
[2016-11-09] MEDS: SUCRALFATE SUSP 1GM/10ML UD PO SCH ×4 (00:43→18:20)
[2016-11-09] MEDS: METHOCARBAMOL 500 MG TAB PO SCH ×6 (00:43→20:21)
[2016-11-09] MEDS: NS 1,000 ML IV SCH (00:44)
[2016-11-09] MEDS: SODIUM CHLORIDE 0.9% INJ 10 ML SYR IV SCH ×2 (06:01→18:21)
[2016-11-09] MEDS: HEPARIN SOD (PORCINE) 5000 UNITS/ML VIAL SQ SCH ×3 (06:56→22:15)
[2016-11-09] MEDS: PANTOPRAZOLE 40MG INJ (PROTONIX) (C9113) IV SCH ×2 (08:19→20:21)
[2016-11-09] MEDS: HumaLOG INSULIN (NovoLOG) PER UNIT SC SCH ×2 (08:20→12:24)
[2016-11-09] MEDS: CitaloPRAM (CeleXA) 20 MG TAB PO SCH (08:21)
[2016-11-09] MEDS: ATORVASTATIN 20 MG TAB PO SCH (08:21)
[2016-11-09] MEDS: amLODIPine 5 MG TAB PO SCH (08:26)
[2016-11-09] MEDS: ASPIRIN 81 MG ENTERIC TAB PO SCH (08:26)
[2016-11-09] MEDS: predniSONE 20 MG TAB PO SCH (08:26)
[2016-11-09] MEDS: LEVEMIR (INSULIN DETEMIR) 1 UNITS/0.01ML SC SCH (08:31)
[2016-11-09] MEDS: COSOPT OCUMETER PLUS 10ML (DORZOLAMIDE/TIMOLOL) OU SCH ×2 (08:32→20:21)
[2016-11-09] MEDS: GI COCKTAIL 50ML BTL(HYOSCYAMINE/MAALOX/LIDOCAINE VISCOUS)(1:3:1) PO PRN ×3 (08:35→20:54)
[2016-11-09 09:20] LABS: MEAN CORPUSCULAR HEMOGLOBIN 31.2 pg (27.0-33.0); MEAN CORPUSCULAR VOLUME 89.1 fl (80.0-96.0); RED CELL DISTRIBUTION WIDTH 13.3 % (11.5-14.5); WHITE BLOOD COUNT 14.3 K/mm3 (4.0-10.0)
[2016-11-09 09:35] LABS: ANION GAP 10 MEQ/L (8-16); BLOOD UREA NITROGEN 15 MG/DL (7-18); CALCIUM LEVEL 8.2 MG/DL (8.5-10.1); CARBON DIOXIDE LEVEL 25 MEQ/L (21-32); CHLORIDE LEVEL 100 MEQ/L (98-107); CREATININE FOR GFR 0.71 MG/DL (0.70-1.30); GLOMERULAR FILTRATION RATE > 60.0 (>56); GLUCOSE, FASTING 124 MG/DL (70-105); POTASSIUM SERUM 4.1 MEQ/L (3.5-5.1); SODIUM LEVEL 135 MEQ/L (136-145)
--- NOTE | 2016-11-09 11:48 | IPNPDOC ---
Subjective Date Seen The patient was seen on 11/09/16. Subjective Chief Complaint/HPI Patient seen and examined at the bedside this morning. States that he is feeling well, but did have an episode of epigastric pain after drinking some milk last night. Otherwise, the patient states that his ability to swallow without epigastric pain has improved.He denies any other acute complaints at this time. Objective Physical Examination General Exam: Positive: Alert, Cooperative, No Acute Distress ENT Exam: Positive: Atraumatic, Mucous membr. moist/pink Neck Exam: Negative: JVD Chest Exam: Positive: Clear to auscultation, Normal air movement Heart Exam: Positive: Rate Normal, Normal S1, Normal S2 Abdomen Exam: Positive: Soft, Negative: Tenderness Extremity Exam: Negative: Tenderness, Swelling Psych Exam: Positive: Oriented x 3 Assessment /Plan Plan/VTE VTE Prophylaxis Ordered?: Yes Plan Esophagitis with Gastritis 2/2 Acute on Chronic Inflammation, with possible underlying Candidal Esophagitis EGD done on 11/03/[address] Raphael revealed grade D Esophagitis with no bleeding noted in the lower third of the esophagus. There was also mild segmental inflammation characterized by congestion and erythema found in the cardia. Biopsy results of the distal esophagus suggestive of stromal tissue with abundant acute and chronic inflammation Stomach biopsy with no significant pathologic change, no Helicobacter organisms identified. The patient's esophagitis is possibly attributable to underlying monilial esophagitis as per surgery The patient was initially started on nystatin suspension, but now has been changed to Diflucan. We will continue with Protonix twice a day, and Carafate. When necessary GI cocktail has also been ordered The patient states that his symptoms have continued to improved, but still notes some burning in the epigastric region only when eating. Alleviated by GI cocktail. I've advised the patient to abstain from certain foods that could exacerbate his symptoms such as alcohol, caffeine, carbonated drinks, chocolate, etc. We will continue to monitor the patient's progress at this time Appreciate surgical input. Type 1 diabetes mellitus The patient does follow with endocrinology in [place]. He uses an insulin pump at baseline, however the patient states that it has been malfunctioning over the last few days. The patient has been switched over to Levemir and an insulin sliding scale here. We will likely discharge the patient on subcutaneous insulin and advised him to follow-up with his lamp inspector for further evaluation of his insulin pump. Giant cell arteritis Follows with rheumatology as an outpatient The patient did apparently suffer a flareup of skull pain a few days ago, and he was given a stronger dose steroid therapy. At this time, the patient's flareup has resolved We will continue to down taper his steroid therapy back to his baseline of prednisone 20 mg daily Hypertension, stable Continue Norvasc Anxiety, depression, stable Continue Celexa DVT prophylaxis Heparin subcutaneously Disposition-we will continue to monitor the patient's symptoms of epigastric pain and follow-up with progress. Physical therapy on board for functional optimization. VS, I&O, 24H, Fishbone Vital Signs/I&O Vital Signs Date Time Temp Pulse Resp B/P (MAP) Pulse Ox O2 Delivery O2 Flow Rate FiO2 11/09/16 08:26 75 140/80 11/09/16 06:00 98.0 22 99 11/08/16 22:00 Room Air I&O- Last 24 Hours up to 6 AM 11/09/16 06:00 Intake Total 4660 ml Output Total 3200 ml Balance 1460 ml Laboratory Data 24H LABS Laboratory Tests 2 11/08/16 12:02: Bedside Glucose (Misc Panel) 360H 11/08/16 16:55: Bedside Glucose (Misc Panel) 260H 11/08/16 20:36: Bedside Glucose (Misc Panel) 221H 11/09/16 07:31: Bedside Glucose (Misc Panel) 121H 11/09/16 08:39: Anion Gap 10, Glomerular Filtration Rate > 60.0, Blood Urea Nitrogen 15, Creatinine 0.71, Sodium Level 135L, Potassium Level 4.1, Chloride Level 100, Carbon Dioxide Level 25, Calcium Level 8.2L, Phosphorus Level 2.0L CBC/BMP Laboratory Tests 11/09/16 08:39 Red Blood Count 3.67 L, Mean Corpuscular Volume 89.1, Mean Corpuscular Hemoglobin 31.2, Mean Corpuscular Hemoglobin Concent 35.0, Red Cell Distribution Width 13.3, Calcium Level 8.2 L Microbiology Microbiology 10/31/16 Blood Culture - Final, Complete NO GROWTH AFTER 5 DAYS 10/31/16 Blood Culture - Final, Complete NO GROWTH AFTER 5 DAYS CONCETTA HAYNES MD Nov 09, 2016 11:48
[2016-11-09] MEDS: K-PHOS NEUTRAL 250MG TABLET (SOD.PHOSPHATE/POT.PHOSPHATE) PO SCH ×3 (12:23→20:21)
[2016-11-09 14:00] VITALS: BP 122/72
[2016-11-09] MEDS: FLUCONAZOLE 100 MG TAB PO SCH (18:20)
[2016-11-09] MEDS: MORPHINE 2 MG/ML 1ML SYRINGE IV PRN (20:17)
[2016-11-09] MEDS: LATANOPROST 0.005% OPHTH SOLN 2.5 ML OU SCH (20:21)
[2016-11-09 22:00] VITALS: BP 158/85
[2016-11-10] MEDS: SUCRALFATE SUSP 1GM/10ML UD PO SCH ×4 (00:02→17:14)
[2016-11-10] MEDS: METHOCARBAMOL 500 MG TAB PO SCH ×6 (00:02→20:30)
[2016-11-10] MEDS: MORPHINE 2 MG/ML 1ML SYRINGE IV PRN (02:26)
[2016-11-10] MEDS: SODIUM CHLORIDE 0.9% INJ 10 ML SYR IV PRN (02:28)
[2016-11-10] MEDS: PERCOCET 5MG/325MG TAB PO PRN ×2 (02:43→15:38)
[2016-11-10] MEDS: HEPARIN SOD (PORCINE) 5000 UNITS/ML VIAL SQ SCH ×3 (05:09→21:44)
[2016-11-10] MEDS: SODIUM CHLORIDE 0.9% INJ 10 ML SYR IV SCH ×2 (05:09→17:15)
[2016-11-10] MEDS: DEXTROSE 50% 50 ML SYRINGE IV PRN (05:24)
--- NOTE | 2016-11-10 05:35 | IPNPDOC ---
Text Note Date of Service The patient was seen on 11/10/16. NOTE Evening resident and attending was paged for patient having a finger stick glucose of 36 this morning. We were told that patient was just placed back on insulin pump and patient has history of hypoglycemia on insulin pump, possibly due to miss managing it. Therefore, the I have asked the nurse to hold the pump for now and reassess in the morning. At this point, patient already got an amp of D50. Will recheck glucose level after 20 minutes. Patient has been discussed with attending Dr. Luz. VS,Linda, I+O VS, Linda, I+O Laboratory Tests 11/09/16 08:39 Red Blood Count 3.67 L, Mean Corpuscular Volume 89.1, Mean Corpuscular Hemoglobin 31.2, Mean Corpuscular Hemoglobin Concent 35.0, Red Cell Distribution Width 13.3, Calcium Level 8.2 L Vital Signs Date Time Temp Pulse Resp B/P (MAP) Pulse Ox O2 Delivery O2 Flow Rate FiO2 11/10/16 03:13 16 Room Air 11/09/16 22:00 98.6 77 158/85 (109) 100 I&O- Last 24 Hours up to 6 AM 11/10/16 06:00 Intake Total 240 ml Output Total 2225 ml Balance -1985 ml GME ATTESTATION GME ATTESTATION My preceptor for this patient encounter was physically present in the building during the encounter and was fully available. As needed, all aspects of the patient interview, examination, medical decision making process, and medical care plan development were reviewed and approved by the preceptor. Preceptor is aware and concurs with the plan as stated in the body of this note and will attest to such by his/her cosignature. LISA HIGUERA DO Nov 10, 2016 05:35
[2016-11-10 05:44] LABS: MEAN CORPUSCULAR HGB CONC 33.6 g/dl (32.0-36.5); MEAN CORPUSCULAR VOLUME 89.2 fl (80.0-96.0); RED CELL DISTRIBUTION WIDTH 13.7 % (11.5-14.5); WHITE BLOOD COUNT 12.8 K/mm3 (4.0-10.0)
[2016-11-10 06:00] VITALS: BP 153/91
[2016-11-10 06:02] LABS: ANION GAP 9 MEQ/L (8-16); BLOOD UREA NITROGEN 18 MG/DL (7-18); CALCIUM LEVEL 7.9 MG/DL (8.5-10.1); CARBON DIOXIDE LEVEL 28 MEQ/L (21-32); CHLORIDE LEVEL 100 MEQ/L (98-107); CREATININE FOR GFR 0.78 MG/DL (0.70-1.30); GLOMERULAR FILTRATION RATE > 60.0 (>56); PHOSPHORUS LEVEL 2.9 MG/DL (2.5-4.9); SODIUM LEVEL 137 MEQ/L (136-145)
[2016-11-10 06:10] LABS: GLUCOSE, FASTING 30 MG/DL (70-105)
[2016-11-10] MEDS ORDERED: D5W/0.45% SODIUM CHLORIDE 500 ML IV SCH (06:30)
[2016-11-10] MEDS: HumaLOG INSULIN (NovoLOG) PER UNIT SC SCH ×4 (07:30→21:44)
[2016-11-10] MEDS: PANTOPRAZOLE 40MG INJ (PROTONIX) (C9113) IV SCH ×2 (10:01→20:30)
[2016-11-10] MEDS: ASPIRIN 81 MG ENTERIC TAB PO SCH (10:01)
[2016-11-10] MEDS: predniSONE 20 MG TAB PO SCH (10:01)
[2016-11-10] MEDS: CitaloPRAM (CeleXA) 20 MG TAB PO SCH (10:01)
[2016-11-10] MEDS: ATORVASTATIN 20 MG TAB PO SCH (10:02)
[2016-11-10] MEDS: POTASSIUM CHLORIDE 10 MEQ SR TABLET PO SCH ×2 (10:02→20:30)
[2016-11-10] MEDS: amLODIPine 5 MG TAB PO SCH (10:04)
[2016-11-10] MEDS: COSOPT OCUMETER PLUS 10ML (DORZOLAMIDE/TIMOLOL) OU SCH ×2 (10:04→21:44)
[2016-11-10] MEDS ORDERED: INSUHUMDS SC ×2 (11:30→15:36)
[2016-11-10] MEDS ORDERED: ADVOKIT XX ×2 (11:30→15:36)
[2016-11-10] MEDS ORDERED: ADVO31MI2 XX ×2 (11:30→15:36)
[2016-11-10] MEDS ORDERED: INSUDET SC ×2 (11:30→15:36)
[2016-11-10] MEDS ORDERED: ADVOMIS4 XX ×2 (11:30→15:36)
[2016-11-10] MEDS ORDERED: LEVEMIR (INSULIN DETEMIR) 1 UNITS/0.01ML SC ONE (13:00)
[2016-11-10 14:00] VITALS: BP 127/77
[2016-11-10] MEDS: GI COCKTAIL 50ML BTL(HYOSCYAMINE/MAALOX/LIDOCAINE VISCOUS)(1:3:1) PO PRN ×2 (14:28→20:30)
[2016-11-10 15:00] VITALS: BP 115/66
--- NOTE | 2016-11-10 15:21 | IPNPDOC ---
Subjective Date Seen The patient was seen on 11/10/16. Subjective Chief Complaint/HPI Patient seen and examined at the bedside this morning. States that he is tolerating his diet reasonably well, and the GI cocktail has helped him when he does have symptoms of epigastric burning. Objective Physical Examination General Exam: Positive: Alert, Cooperative, No Acute Distress ENT Exam: Positive: Atraumatic, Mucous membr. moist/pink Neck Exam: Negative: JVD Chest Exam: Positive: Clear to auscultation, Normal air movement Heart Exam: Positive: Rate Normal, Normal S1, Normal S2 Abdomen Exam: Positive: Soft, Negative: Tenderness Extremity Exam: Negative: Tenderness, Swelling Psych Exam: Positive: Oriented x 3 Assessment /Plan Plan/VTE VTE Prophylaxis Ordered?: Yes Plan Esophagitis with Gastritis 2/2 Acute on Chronic Inflammation, with possible underlying Candidal Esophagitis EGD done on 11/03/[address] Raphael revealed grade D Esophagitis with no bleeding noted in the lower third of the esophagus. There was also mild segmental inflammation characterized by congestion and erythema found in the cardia. Biopsy results of the distal esophagus suggestive of stromal tissue with abundant acute and chronic inflammation Stomach biopsy with no significant pathologic change, no Helicobacter organisms identified. The patient's esophagitis is possibly attributable to underlying monilial esophagitis as per surgery The patient was initially started on nystatin suspension, but now has been changed to Diflucan. We will continue with Protonix twice a day, and Carafate. When necessary GI cocktail has also been ordered The patient states that his symptoms have continued to improved, but still notes some burning in the epigastric region only when eating. Alleviated by GI cocktail. I've advised the patient to abstain from certain foods that could exacerbate his symptoms such as alcohol, caffeine, carbonated drinks, chocolate, etc. We will continue to monitor the patient's progress at this time Appreciate surgical input. Type 1 diabetes mellitus The patient does follow with endocrinology in [place]. He uses an insulin pump at baseline, however the patient states that it has been malfunctioning over the last few days. The patient has been switched over to Levemir and an insulin sliding scale here. We will likely discharge the patient on subcutaneous insulin and advised him to follow-up with his rod puller and coiler for further evaluation of his insulin pump. Giant cell arteritis Follows with rheumatology as an outpatient The patient did apparently suffer a flareup of skull pain a few days ago, and he was given a stronger dose steroid therapy. At this time, the patient's flareup has resolved We will continue to down taper his steroid therapy back to his baseline of prednisone 20 mg daily Hypertension, stable Continue Norvasc Anxiety, depression, stable Continue Celexa DVT prophylaxis Heparin subcutaneously Disposition-we will continue to monitor the patient's symptoms of epigastric pain and follow-up with progress. Physical therapy on board for functional optimization. VS, I&O, 24H, Fishbone Vital Signs/I&O Vital Signs Date Time Temp Pulse Resp B/P (MAP) Pulse Ox O2 Delivery O2 Flow Rate FiO2 11/10/16 11:55 Room Air 11/10/16 10:04 84 153/91 11/10/16 06:00 96.5 20 100 I&O- Last 24 Hours up to 6 AM 11/10/16 06:00 Intake Total 360 ml Output Total 2225 ml Balance -1865 ml Laboratory Data 24H LABS Laboratory Tests 2 11/09/16 17:06: Bedside Glucose (Misc Panel) 197H 11/09/16 20:38: Bedside Glucose (Misc Panel) 149H 11/10/16 05:15: Anion Gap 9, Glomerular Filtration Rate > 60.0, Blood Urea Nitrogen 18, Creatinine 0.78, Sodium Level 137, Potassium Level 3.0#L, Chloride Level 100, Carbon Dioxide Level 28, Calcium Level 7.9L, Phosphorus Level 2.9# 11/10/16 05:17: Bedside Glucose (Misc Panel) 31*L 11/10/16 05:31: Bedside Glucose (Misc Panel) 73 11/10/16 06:13: Bedside Glucose (Misc Panel) 73 11/10/16 10:39: Bedside Glucose (Misc Panel) 171H 11/10/16 11:41: Bedside Glucose (Misc Panel) 220H 11/10/16 11:58: Bedside Glucose (Misc Panel) 217H 11/10/16 15:02: Bedside Glucose (Misc Panel) 180H CBC/BMP Laboratory Tests 11/10/16 05:15 Red Blood Count 3.97 L, Mean Corpuscular Volume 89.2, Mean Corpuscular Hemoglobin 30.0, Mean Corpuscular Hemoglobin Concent 33.6, Red Cell Distribution Width 13.7, Calcium Level 7.9 L Microbiology Microbiology 10/31/16 Blood Culture - Final, Complete NO GROWTH AFTER 5 DAYS 10/31/16 Blood Culture - Final, Complete NO GROWTH AFTER 5 DAYS CONCETTA HAYNES MD Nov 10, 2016 15:21
[2016-11-10] MEDS: FLUCONAZOLE 100 MG TAB PO SCH (15:37)
--- NOTE | 2016-11-10 16:31 | REP ---
CT Head without contrast HISTORY: Confusion COMPARISON: 10/16/2016 Areas of decreased attenuation are present in the periventricular and subcortical white matter. This represents small-vessel ischemic disease. There is no intraparenchymal hemorrhage, acute infarct, mass or midline shift. The ventricular system and cortical sulci are dilated consistent with mild volume loss. There is no extra cerebral collection. There is no fracture. The visualized sinuses are clear. IMPRESSION: 1. Small vessel ischemic disease. 2. Mild volume loss. Signed by Manoj Curtis MD 11/10/2016 04:22 P
[2016-11-10] MEDS: LATANOPROST 0.005% OPHTH SOLN 2.5 ML OU SCH (21:44)
[2016-11-10 22:00] VITALS: BP 116/66
[2016-11-11] MEDS: METHOCARBAMOL 500 MG TAB PO SCH ×6 (00:27→20:55)
[2016-11-11] MEDS: SUCRALFATE SUSP 1GM/10ML UD PO SCH ×4 (00:27→17:11)
[2016-11-11] MEDS: SODIUM CHLORIDE 0.9% INJ 10 ML SYR IV SCH ×2 (05:08→17:11)
[2016-11-11] MEDS: HEPARIN SOD (PORCINE) 5000 UNITS/ML VIAL SQ SCH ×3 (05:08→20:55)
[2016-11-11 05:39] LABS: MEAN CORPUSCULAR HGB CONC 33.2 g/dl (32.0-36.5); MEAN CORPUSCULAR VOLUME 90.5 fl (80.0-96.0); RED CELL DISTRIBUTION WIDTH 13.9 % (11.5-14.5)
[2016-11-11 05:50] LABS: ANION GAP 8 MEQ/L (8-16); BLOOD UREA NITROGEN 23 MG/DL (7-18); CALCIUM LEVEL 8.2 MG/DL (8.5-10.1); CARBON DIOXIDE LEVEL 26 MEQ/L (21-32); CHLORIDE LEVEL 98 MEQ/L (98-107); GLOMERULAR FILTRATION RATE > 60.0 (>56); GLUCOSE, FASTING 315 MG/DL (70-105); PHOSPHORUS LEVEL 2.6 MG/DL (2.5-4.9); SODIUM LEVEL 132 MEQ/L (136-145)
[2016-11-11 05:51] LABS: POTASSIUM SERUM 5.2 MEQ/L (3.5-5.1)
[2016-11-11 06:00] VITALS: BP 133/74
[2016-11-11] MEDS: GI COCKTAIL 50ML BTL(HYOSCYAMINE/MAALOX/LIDOCAINE VISCOUS)(1:3:1) PO PRN ×2 (07:13→13:47)
[2016-11-11] MEDS ORDERED: SOD POLYSTYRENE SULFONATE SUSP 15 GM/60 ML UD PO ONE (07:45)
[2016-11-11] MEDS: PANTOPRAZOLE 40MG INJ (PROTONIX) (C9113) IV SCH ×2 (08:27→20:54)
[2016-11-11] MEDS: HumaLOG INSULIN (NovoLOG) PER UNIT SC SCH ×4 (08:27→20:56)
[2016-11-11] MEDS: CitaloPRAM (CeleXA) 20 MG TAB PO SCH (08:28)
[2016-11-11] MEDS: LEVEMIR (INSULIN DETEMIR) 1 UNITS/0.01ML SC SCH (08:28)
[2016-11-11] MEDS: predniSONE 20 MG TAB PO SCH (08:29)
[2016-11-11] MEDS: ATORVASTATIN 20 MG TAB PO SCH (08:29)
[2016-11-11] MEDS: ASPIRIN 81 MG ENTERIC TAB PO SCH (08:29)
[2016-11-11] MEDS: COSOPT OCUMETER PLUS 10ML (DORZOLAMIDE/TIMOLOL) OU SCH ×2 (08:30→20:56)
[2016-11-11] MEDS: amLODIPine 5 MG TAB PO SCH (08:33)
[2016-11-11 10:30] VITALS: BP 103/59
--- NOTE | 2016-11-11 10:53 | IPNPDOC ---
Subjective Date Seen The patient was seen on 11/11/16. Subjective Chief Complaint/HPI Patient seen and examined at the bedside this morning. The patient did have a fall yesterday while getting up from bed. The patient states that he misjudged how close the wall was to him when walking with his cane, and he hit his head against the wall. Denies any acute complaints at this time. Follow-up CT scan of the head was negative for any acute findings. Objective Physical Examination General Exam: Positive: Alert, Cooperative, No Acute Distress ENT Exam: Positive: Atraumatic, Mucous membr. moist/pink Neck Exam: Negative: JVD Chest Exam: Positive: Clear to auscultation, Normal air movement Heart Exam: Positive: Rate Normal, Normal S1, Normal S2 Abdomen Exam: Positive: Soft, Negative: Tenderness Extremity Exam: Negative: Tenderness, Swelling Psych Exam: Positive: Oriented x 3 Assessment /Plan Plan/VTE VTE Prophylaxis Ordered?: Yes Plan Esophagitis with Gastritis 2/2 Acute on Chronic Inflammation, with possible underlying Candidal Esophagitis EGD done on 11/03/[address] Raphael revealed grade D Esophagitis with no bleeding noted in the lower third of the esophagus. There was also mild segmental inflammation characterized by congestion and erythema found in the cardia. Biopsy results of the distal esophagus suggestive of stromal tissue with abundant acute and chronic inflammation Stomach biopsy with no significant pathologic change, no Helicobacter organisms identified. The patient's esophagitis is possibly attributable to underlying monilial esophagitis as per surgery The patient was initially started on nystatin suspension, but now has been changed to Diflucan. We will continue with Protonix twice a day, and Carafate. When necessary GI cocktail has also been ordered The patient states that his symptoms have continued to improved, but still notes some burning in the epigastric region only when eating. Alleviated by GI cocktail. I've advised the patient to abstain from certain foods that could exacerbate his symptoms such as alcohol, caffeine, carbonated drinks, chocolate, etc. We will continue to monitor the patient's progress at this time Appreciate surgical input. Type 1 diabetes mellitus The patient does follow with endocrinology in [place]. He uses an insulin pump at baseline, however the patient states that it has been malfunctioning over the last few days. He also had an episode of hypoglycemia here when his insulin pump was restarted. The patient has been switched over to Levemir and an insulin sliding scale here. We will discharge the patient on subcutaneous insulin and advised him to follow- up with his server service assistant for further evaluation of his insulin pump. Diabetic medications and supplies have already been sent to his pharmacy. Giant cell arteritis Follows with rheumatology as an outpatient The patient did apparently suffer a flareup of skull pain earlier in this admission, and he was given a stronger dose steroid therapy. At this time, the patient's flareup has resolved We will continue to down taper his steroid therapy back to his baseline of prednisone 20 mg daily Hypertension, stable Continue Norvasc Anxiety, depression, stable Continue Celexa DVT prophylaxis Heparin subcutaneously Disposition-we will continue to monitor the patient's symptoms of epigastric pain and follow-up with progress. Physical therapy on board for functional optimization. VS, I&O, 24H, Fishbone Vital Signs/I&O Vital Signs Date Time Temp Pulse Resp B/P (MAP) Pulse Ox O2 Delivery O2 Flow Rate FiO2 11/11/16 08:33 89 126/70 11/11/16 06:00 99.0 18 98 Room Air I&O- Last 24 Hours up to 6 AM 11/11/16 06:00 Intake Total 720 ml Output Total 1200 ml Balance -480 ml Laboratory Data 24H LABS Laboratory Tests 2 11/10/16 11:41: Bedside Glucose (Misc Panel) 220H 11/10/16 11:58: Bedside Glucose (Misc Panel) 217H 11/10/16 15:02: Bedside Glucose (Misc Panel) 180H 11/10/16 16:36: Bedside Glucose (Misc Panel) 337H 11/10/16 20:06: Bedside Glucose (Misc Panel) 432H 11/10/16 20:40: Bedside Glucose (Misc Panel) 444H 11/11/16 05:16: Anion Gap 8, Glomerular Filtration Rate > 60.0, Blood Urea Nitrogen 23H, Creatinine 1.00, Sodium Level 132L, Potassium Level 5.2H, Chloride Level 98, Carbon Dioxide Level 26, Calcium Level 8.2L, Phosphorus Level 2.6 CBC/BMP Laboratory Tests 11/11/16 05:16 Red Blood Count 3.56 L, Mean Corpuscular Volume 90.5, Mean Corpuscular Hemoglobin 30.0, Mean Corpuscular Hemoglobin Concent 33.2, Red Cell Distribution Width 13.9, Calcium Level 8.2 L CONCETTA HAYNES MD Nov 11, 2016 10:53
[2016-11-11] MEDS: PERCOCET 5MG/325MG TAB PO PRN (13:47)
[2016-11-11 14:45] VITALS: BP 104/64
[2016-11-11 14:50] VITALS: BP 104/64
[2016-11-11] MEDS: FLUCONAZOLE 100 MG TAB PO SCH (15:55)
[2016-11-11] MEDS: ACETAMINOPHEN TAB 650MG DOSE (2X325MG) PO PRN (15:55)
[2016-11-11] MEDS: MIDODRINE 2.5 MG TAB PO SCH (17:11)
[2016-11-11] MEDS: LATANOPROST 0.005% OPHTH SOLN 2.5 ML OU SCH (20:56)
[2016-11-11 22:00] VITALS: BP 108/58
[2016-11-12] VITALS (7 sets, daily range): BP systolic 122–140; BP diastolic 67–84
[2016-11-12] MEDS: SUCRALFATE SUSP 1GM/10ML UD PO SCH ×4 (00:09→17:29)
[2016-11-12] MEDS: METHOCARBAMOL 500 MG TAB PO SCH ×6 (00:10→20:54)
[2016-11-12] MEDS: PERCOCET 5MG/325MG TAB PO PRN ×2 (03:22→19:47)
[2016-11-12] MEDS: HEPARIN SOD (PORCINE) 5000 UNITS/ML VIAL SQ SCH ×3 (05:04→21:01)
[2016-11-12] MEDS: SODIUM CHLORIDE 0.9% INJ 10 ML SYR IV SCH ×2 (05:04→17:30)
[2016-11-12 05:30] LABS: MEAN CORPUSCULAR HEMOGLOBIN 30.7 pg (27.0-33.0); MEAN CORPUSCULAR HGB CONC 33.7 g/dl (32.0-36.5); RED CELL DISTRIBUTION WIDTH 13.8 % (11.5-14.5); WHITE BLOOD COUNT 8.9 K/mm3 (4.0-10.0)
[2016-11-12 05:44] LABS: ANION GAP 7 MEQ/L (8-16); BLOOD UREA NITROGEN 19 MG/DL (7-18); CALCIUM LEVEL 7.9 MG/DL (8.5-10.1); CARBON DIOXIDE LEVEL 28 MEQ/L (21-32); CHLORIDE LEVEL 96 MEQ/L (98-107); CREATININE FOR GFR 0.93 MG/DL (0.70-1.30); GLOMERULAR FILTRATION RATE > 60.0 (>56); GLUCOSE, FASTING 236 MG/DL (70-105); PHOSPHORUS LEVEL 2.8 MG/DL (2.5-4.9); POTASSIUM SERUM 4.3 MEQ/L (3.5-5.1); SODIUM LEVEL 131 MEQ/L (136-145)
[2016-11-12] MEDS: MIDODRINE 2.5 MG TAB PO SCH ×3 (09:06→16:37)
[2016-11-12] MEDS: NS 1,000 ML IV SCH ×2 (09:06→20:54)
[2016-11-12] MEDS: HumaLOG INSULIN (NovoLOG) PER UNIT SC SCH ×4 (09:06→20:55)
[2016-11-12] MEDS: CitaloPRAM (CeleXA) 20 MG TAB PO SCH (09:07)
[2016-11-12] MEDS: predniSONE 20 MG TAB PO SCH (09:07)
[2016-11-12] MEDS: ASPIRIN 81 MG ENTERIC TAB PO SCH (09:07)
[2016-11-12] MEDS: GI COCKTAIL 50ML BTL(HYOSCYAMINE/MAALOX/LIDOCAINE VISCOUS)(1:3:1) PO PRN ×3 (09:07→20:54)
[2016-11-12] MEDS: LEVEMIR (INSULIN DETEMIR) 1 UNITS/0.01ML SC SCH (09:07)
[2016-11-12] MEDS: ATORVASTATIN 20 MG TAB PO SCH (09:07)
[2016-11-12] MEDS: PANTOPRAZOLE 40MG INJ (PROTONIX) (C9113) IV SCH ×2 (09:07→20:55)
[2016-11-12] MEDS: COSOPT OCUMETER PLUS 10ML (DORZOLAMIDE/TIMOLOL) OU SCH ×2 (09:08→20:56)
--- NOTE | 2016-11-12 12:16 | IPNPDOC ---
Subjective Date Seen The patient was seen on 11/12/16. Subjective Chief Complaint/HPI Patient seen and examined at the bedside. Apparently, according to the nursing staff he did have a near syncopal episode yesterday while having orthostatic vital signs checked. He denies any acute complaints at this time otherwise, and he states that his epigastric pain from underlying esophagitis has improved. Objective Physical Examination General Exam: Positive: Alert, Cooperative, No Acute Distress ENT Exam: Positive: Atraumatic, Mucous membr. moist/pink Neck Exam: Negative: JVD Chest Exam: Positive: Clear to auscultation, Normal air movement Heart Exam: Positive: Rate Normal, Normal S1, Normal S2 Abdomen Exam: Positive: Soft, Negative: Tenderness Extremity Exam: Negative: Tenderness, Swelling Psych Exam: Positive: Oriented x 3 Assessment /Plan Plan/VTE VTE Prophylaxis Ordered?: Yes Plan Esophagitis with Gastritis 2/2 Acute on Chronic Inflammation, with possible underlying Candidal Esophagitis EGD done on 11/03/[address] Raphael revealed grade D Esophagitis with no bleeding noted in the lower third of the esophagus. There was also mild segmental inflammation characterized by congestion and erythema found in the cardia. Biopsy results of the distal esophagus suggestive of stromal tissue with abundant acute and chronic inflammation Stomach biopsy with no significant pathologic change, no Helicobacter organisms identified. The patient's esophagitis is possibly attributable to underlying monilial esophagitis as per surgery The patient was initially started on nystatin suspension, but now has been changed to Diflucan. We will continue with Protonix twice a day, and Carafate. When necessary GI cocktail has also been ordered The patient states that his symptoms have continued to improve. I've advised the patient to abstain from certain foods that could exacerbate his symptoms such as alcohol, caffeine, carbonated drinks, chocolate, etc. We will continue to monitor the patient's progress at this time Appreciate surgical input. Near Syncopal Episode likely 2/2 Orthostatic Hypotension IVF Hydration ordered 2D ECHO ordered to further assess for underlying cardiac function I do suspect that the patient may have underlying autonomic neuropathy from underlying Type 1 DM Started on Midodrine 2.5mg TID, will up titrate dosing based on tolerability and once ECHO results return Will continue checking orthostatic vitals Transferred to PCU for monitoring on Telemetry Type 1 diabetes mellitus The patient does follow with endocrinology in [place]. He uses an insulin pump at baseline, however the patient states that it has been malfunctioning over the last few days. He also had an episode of hypoglycemia here when his insulin pump was restarted. The patient has been switched over to Levemir and an insulin sliding scale here. We will discharge the patient on subcutaneous insulin and advised him to follow- up with his public safety teacher for further evaluation of his insulin pump. Diabetic medications and supplies have already been sent to his pharmacy. Giant cell arteritis Follows with rheumatology as an outpatient The patient did apparently suffer a flareup of skull pain earlier in this admission, and he was given a stronger dose steroid therapy. At this time, the patient's flareup has resolved Steroid therapy down tapered back to his baseline of prednisone 20 mg daily Hypertension, stable Continue Norvasc Anxiety, depression, stable Continue Celexa DVT prophylaxis Heparin subcutaneously Disposition-we will continue to monitor the patient's symptoms of epigastric pain/near syncope and follow-up with progress. Physical therapy on board for functional optimization. VS, I&O, [facility] Vital Signs/I&O Vital Signs Date Time Temp Pulse Resp B/P (MAP) Pulse Ox O2 Delivery O2 Flow Rate FiO2 11/12/16 06:00 97.6 72 18 140/82 (101) 99 11/12/16 03:52 Room Air I&O- Last 24 Hours up to 6 AM 11/12/16 06:00 Intake Total 1560 ml Output Total 950 ml Balance 610 ml Laboratory Data 24H LABS Laboratory Tests 2 11/11/16 15:08: Bedside Glucose (Misc Panel) 155H 11/11/16 16:34: Bedside Glucose (Misc Panel) 64L 11/11/16 17:08: Bedside Glucose (Misc Panel) 52L 11/11/16 17:59: Bedside Glucose (Misc Panel) 153H 11/11/16 20:23: Bedside Glucose (Misc Panel) 319H 11/12/16 05:13: Anion Gap 7L, Glomerular Filtration Rate > 60.0, Blood Urea Nitrogen 19H, Creatinine 0.93, Sodium Level 131L, Potassium Level 4.3, Chloride Level 96L, Carbon Dioxide Level 28, Calcium Level 7.9L, Phosphorus Level 2.8 11/12/16 11:30: Bedside Glucose (Misc Panel) 254H CBC/BMP Laboratory Tests 11/12/16 05:13 Red Blood Count 3.28 L, Mean Corpuscular Volume 91.0, Mean Corpuscular Hemoglobin 30.7, Mean Corpuscular Hemoglobin Concent 33.7, Red Cell Distribution Width 13.8, Calcium Level 7.9 L CONCETTA HAYNES MD Nov 12, 2016 12:16
--- NOTE | 2016-11-12 12:57 | ECHO ---
DATE OF PROCEDURE: 11/12/2016 DATE OF : 1960 AGE: 56 REFERRING PROVIDER: Dr. Devon Bravo PATIENT LOCATION: Room 4213 REASON FOR THE ECHOCARDIOGRAM: Syncope. 2D MEASUREMENTS: IVS: 1.2 cm LV: 4.1 cm LVPW: 1.0 cm LA: 3.1 cm Aorta: 2.7 cm IVC: 1.5 cm DOPPLER MEASUREMENTS: Peak velocity across the aortic valve: 0.96 m/s Peak velocity across the LVOT: 0.90 m/s Mitral E: 0.67, Mitral A: 0.61 with a ratio of 1.1 Maximum tricuspid valve velocity: 2.6 m/s 2D COMMENTS: 1. Normal left ventricular size, wall thickness and normal global left ventricular systolic function. The estimated left ventricular systolic ejection fraction is 60-65%. 2. Normal left atrium. Normal right atrium and right ventricle. 3. The atrial septum appeared to be normal without evidence of defect or shunt. 4. Normal aortic root. 5. No pericardial effusion seen. 6. Minimally calcified aortic valve with normal leaflet excursion. Mildly calcified mitral annulus with normal anterior mitral valve leaflet motion. Normal tricuspid valve. The pulmonic valve and proximal pulmonary artery branches were not well visualized. 7. The inferior vena cava was normal in size, central venous pressure is most likely normal. DOPPLER: It detects trace to mild tricuspid regurgitation and trace pulmonic regurgitation. The calculated pulmonary artery systolic pressure varies between 30 to 40 mmHg. Abnormal relaxation pattern was noted across the mitral valve annulus that may be consistent with grade 2 left ventricular diastolic dysfunction. IMPRESSION: 1. Normal global left ventricular systolic function. There were features of left ventricular diastolic dysfunction manifested by a pseudo-normal pattern, left ventricular end-diastolic pressure might be elevated. 2. Mitral annulus calcification. No evidence of mitral regurgitation or stenosis. 3. Trace to mild tricuspid regurgitation with probably mild pulmonary hypertension. 4. Trace pulmonic regurgitation. MTDD
[2016-11-12] MEDS: FLUCONAZOLE 100 MG TAB PO SCH (16:37)
[2016-11-12] MEDS: LATANOPROST 0.005% OPHTH SOLN 2.5 ML OU SCH (20:56)
[2016-11-13] VITALS (7 sets, daily range): BP systolic 104–158; BP diastolic 61–86
[2016-11-13] MEDS: METHOCARBAMOL 500 MG TAB PO SCH ×2 (00:05→05:00)
[2016-11-13] MEDS: SUCRALFATE SUSP 1GM/10ML UD PO SCH ×5 (00:05→23:49)
[2016-11-13] MEDS: PERCOCET 5MG/325MG TAB PO PRN ×4 (00:07→21:51)
[2016-11-13] MEDS: HEPARIN SOD (PORCINE) 5000 UNITS/ML VIAL SQ SCH ×3 (05:55→21:50)
[2016-11-13] MEDS: GI COCKTAIL 50ML BTL(HYOSCYAMINE/MAALOX/LIDOCAINE VISCOUS)(1:3:1) PO PRN ×2 (05:56→19:02)
[2016-11-13] MEDS: SODIUM CHLORIDE 0.9% INJ 10 ML SYR IV SCH ×2 (05:56→18:00)
[2016-11-13 06:01] LABS: MEAN CORPUSCULAR HEMOGLOBIN 30.2 pg (27.0-33.0); MEAN CORPUSCULAR HGB CONC 32.8 g/dl (32.0-36.5); MEAN CORPUSCULAR VOLUME 92.1 fl (80.0-96.0); RED CELL DISTRIBUTION WIDTH 13.8 % (11.5-14.5); WHITE BLOOD COUNT 8.7 K/mm3 (4.0-10.0)
[2016-11-13 06:30] LABS: ANION GAP 9 MEQ/L (8-16); BLOOD UREA NITROGEN 15 MG/DL (7-18); CALCIUM LEVEL 7.8 MG/DL (8.5-10.1); CARBON DIOXIDE LEVEL 27 MEQ/L (21-32); CHLORIDE LEVEL 95 MEQ/L (98-107); CREATININE FOR GFR 0.85 MG/DL (0.70-1.30); GLOMERULAR FILTRATION RATE > 60.0 (>56); GLUCOSE, FASTING 337 MG/DL (70-105); PHOSPHORUS LEVEL 2.6 MG/DL (2.5-4.9); POTASSIUM SERUM 4.7 MEQ/L (3.5-5.1); SODIUM LEVEL 131 MEQ/L (136-145)
[2016-11-13] MEDS: MIDODRINE 2.5 MG TAB PO SCH ×3 (08:05→16:00)
[2016-11-13] MEDS: HumaLOG INSULIN (NovoLOG) PER UNIT SC SCH ×4 (08:05→21:00)
[2016-11-13] MEDS: COSOPT OCUMETER PLUS 10ML (DORZOLAMIDE/TIMOLOL) OU SCH ×2 (09:00→21:48)
[2016-11-13] MEDS: LEVEMIR (INSULIN DETEMIR) 1 UNITS/0.01ML SC SCH (09:00)
[2016-11-13] MEDS: ATORVASTATIN 20 MG TAB PO SCH (09:00)
[2016-11-13] MEDS: predniSONE 20 MG TAB PO SCH (09:00)
[2016-11-13] MEDS: CitaloPRAM (CeleXA) 20 MG TAB PO SCH (09:00)
[2016-11-13] MEDS: ASPIRIN 81 MG ENTERIC TAB PO SCH (09:00)
[2016-11-13] MEDS: PANTOPRAZOLE 40MG INJ (PROTONIX) (C9113) IV SCH ×2 (09:00→21:49)
[2016-11-13] MEDS: NS 1,000 ML IV SCH ×2 (10:30→22:39)
--- NOTE | 2016-11-13 13:21 | IPNPDOC ---
Subjective Date Seen The patient was seen on 11/13/16. Subjective Chief Complaint/HPI Patient seen and examined at the bedside this morning. States that he has some neck pain, as he may have slept on his neck in the wrong position. Denies any acute complaints of headaches, lightheadedness, dizziness, blurred vision, or any other acute complaints at this time. Objective Physical Examination General Exam: Positive: Alert, Cooperative, Mild Distress (2/2 neck pain) ENT Exam: Positive: Atraumatic, Mucous membr. moist/pink Neck Exam: Negative: JVD Chest Exam: Positive: Clear to auscultation, Normal air movement Heart Exam: Positive: Rate Normal, Normal S1, Normal S2 Abdomen Exam: Positive: Soft, Negative: Tenderness Extremity Exam: Negative: Tenderness, Swelling Psych Exam: Positive: Oriented x 3 Assessment /Plan Plan/VTE VTE Prophylaxis Ordered?: Yes Plan Esophagitis with Gastritis 2/2 Acute on Chronic Inflammation, with possible underlying Candidal Esophagitis EGD done on 11/03/[address] Raphael revealed grade D Esophagitis with no bleeding noted in the lower third of the esophagus. There was also mild segmental inflammation characterized by congestion and erythema found in the cardia. Biopsy results of the distal esophagus suggestive of stromal tissue with abundant acute and chronic inflammation Stomach biopsy with no significant pathologic change, no Helicobacter organisms identified. The patient's esophagitis is possibly attributable to underlying monilial esophagitis as per surgery s/p completion of Diflucan therapy We will continue with Protonix twice a day, and Carafate. When necessary GI cocktail has also been ordered The patient states that his symptoms have continued to improve. I've advised the patient to abstain from certain foods that could exacerbate his symptoms such as alcohol, caffeine, carbonated drinks, chocolate, etc. We will continue to monitor the patient's progress at this time Appreciate surgical input. Near Syncopal Episode likely 2/2 Orthostatic Hypotension IVF Hydration ordered 2D ECHO notable for Diastolic Dysfunction I do suspect that the patient may have underlying autonomic neuropathy from underlying Type 1 DM causing him to be orthostatic Started on Midodrine 2.5mg TID, will up titrate dosing based on tolerability Will continue checking orthostatic vitals Continue monitoring on Telemetry Type 1 diabetes mellitus The patient does follow with endocrinology in [place]. He uses an insulin pump at baseline, however the patient states that it has been malfunctioning over the last few days. He also had an episode of hypoglycemia here when his insulin pump was restarted. The patient has been switched over to Levemir and an insulin sliding scale here. We will discharge the patient on subcutaneous insulin and advised him to follow- up with his stem mounter for further evaluation of his insulin pump. Diabetic medications and supplies have already been sent to his pharmacy. Giant cell arteritis Follows with rheumatology as an outpatient The patient did apparently suffer a flareup of skull pain earlier in this admission, and he was given a stronger dose steroid therapy. At this time, the patient's flareup has resolved Steroid therapy down tapered back to his baseline of prednisone 20 mg daily Hypertension, stable Continue Norvasc Anxiety, depression, stable Continue Celexa DVT prophylaxis Heparin subcutaneously Disposition-we will continue to monitor the patient's symptoms of epigastric pain/near syncope and follow-up with progress. Physical therapy on board for functional optimization. VS, I&O, 24H, Fishbone Vital Signs/I&O Vital Signs Date Time Temp Pulse Resp B/P (MAP) Pulse Ox O2 Delivery O2 Flow Rate FiO2 11/13/16 12:00 98.2 82 18 144/77 (99) 99 Room Air I&O- Last 24 Hours up to 6 AM 11/13/16 06:00 Intake Total 2055 ml Output Total 2050 ml Balance 5 ml Laboratory Data 24H LABS Laboratory Tests 2 11/12/16 16:48: Bedside Glucose (Misc Panel) 323H 11/12/16 20:48: Bedside Glucose (Misc Panel) 216H 11/13/16 05:43: Anion Gap 9, Glomerular Filtration Rate > 60.0, Blood Urea Nitrogen 15, Creatinine 0.85, Sodium Level 131L, Potassium Level 4.7, Chloride Level 95L, Carbon Dioxide Level 27, Calcium Level 7.8L, Phosphorus Level 2.6 11/13/16 11:27: Bedside Glucose (Misc Panel) 310H CBC/BMP Laboratory Tests 11/12/16 13:57 11/13/16 05:43 Red Blood Count 3.33 L, Mean Corpuscular Volume 92.1, Mean Corpuscular Hemoglobin 30.2, Mean Corpuscular Hemoglobin Concent 32.8, Red Cell Distribution Width 13.8, Calcium Level 7.8 L CONCETTA HAYNES MD Nov 13, 2016 13:21
[2016-11-13] MEDS: LATANOPROST 0.005% OPHTH SOLN 2.5 ML OU SCH (21:50)
[2016-11-14 04:59] VITALS: BP 145/68
[2016-11-14] MEDS: SUCRALFATE SUSP 1GM/10ML UD PO SCH ×3 (05:07→17:48)
[2016-11-14] MEDS: HEPARIN SOD (PORCINE) 5000 UNITS/ML VIAL SQ SCH ×3 (05:07→21:33)
[2016-11-14] MEDS: SODIUM CHLORIDE 0.9% INJ 10 ML SYR IV SCH ×2 (05:08→16:18)
[2016-11-14 07:00] LABS: MEAN CORPUSCULAR HEMOGLOBIN 30.3 pg (27.0-33.0); MEAN CORPUSCULAR HGB CONC 33.2 g/dl (32.0-36.5); MEAN CORPUSCULAR VOLUME 91.3 fl (80.0-96.0); RED CELL DISTRIBUTION WIDTH 13.5 % (11.5-14.5)
[2016-11-14 07:02] LABS: ANION GAP 8 MEQ/L (8-16); BLOOD UREA NITROGEN 10 MG/DL (7-18); CARBON DIOXIDE LEVEL 27 MEQ/L (21-32); CHLORIDE LEVEL 97 MEQ/L (98-107); GLOMERULAR FILTRATION RATE > 60.0 (>56); GLUCOSE, FASTING 196 MG/DL (70-105); PHOSPHORUS LEVEL 2.9 MG/DL (2.5-4.9); SODIUM LEVEL 132 MEQ/L (136-145)
[2016-11-14 08:00] VITALS: BP 158/88
[2016-11-14] MEDS: PANTOPRAZOLE 40MG INJ (PROTONIX) (C9113) IV SCH ×2 (08:16→21:33)
[2016-11-14] MEDS: HumaLOG INSULIN (NovoLOG) PER UNIT SC SCH ×4 (08:17→21:33)
[2016-11-14] MEDS: LEVEMIR (INSULIN DETEMIR) 1 UNITS/0.01ML SC SCH (08:18)
[2016-11-14] MEDS: CitaloPRAM (CeleXA) 20 MG TAB PO SCH (08:18)
[2016-11-14] MEDS: PERCOCET 5MG/325MG TAB PO PRN (08:19)
[2016-11-14] MEDS: COSOPT OCUMETER PLUS 10ML (DORZOLAMIDE/TIMOLOL) OU SCH ×2 (08:19→22:25)
[2016-11-14] MEDS: ATORVASTATIN 20 MG TAB PO SCH (08:19)
[2016-11-14] MEDS: MIDODRINE 2.5 MG TAB PO SCH ×3 (08:19→16:17)
[2016-11-14] MEDS: ASPIRIN 81 MG ENTERIC TAB PO SCH (08:19)
[2016-11-14] MEDS: predniSONE 20 MG TAB PO SCH ×2 (08:19→21:32)
[2016-11-14 11:20] VITALS: BP 119/58
[2016-11-14] MEDS: NS 1,000 ML IV SCH (12:11)
[2016-11-14] MEDS: GI COCKTAIL 50ML BTL(HYOSCYAMINE/MAALOX/LIDOCAINE VISCOUS)(1:3:1) PO PRN ×2 (13:51→21:32)
[2016-11-14] MEDS ORDERED: MORPHINE 2 MG/ML 1ML SYRINGE IV ONE (16:15)
--- NOTE | 2016-11-14 18:19 | IPN ---
DATE: 11/14/2016 SUBJECTIVE: The patient is seen and examined in the room today. The patient still complains of significant right upper neck pain. The patient stated he has been using a GI cocktail before each oral intake, and it makes the food ingestion more tolerable. He has been tolerating a liquid to soft diet. OBJECTIVE: VITAL SIGNS: Temperature is 97.8, pulse is 68, respirations 18, blood pressure is 158/88, pulse oximetry is 100% in room air. GENERAL: Mild to moderate distress. Alert and oriented times three. HEENT: Normocephalic, atraumatic. Extraocular motor grossly intact. CARDIOVASCULAR: Positive S1, S2, regular rate. LUNGS: Clear to auscultation bilaterally. ABDOMEN: Mild tenderness to palpation in the epigastric region; otherwise normal finding. EXTREMITIES: No edema, no sign of cyanosis. LABORATORY DATA: WBC is 9, hemoglobin 9.9, hematocrit 29.9, platelet count is 352. Sodium is 132, potassium 4, chloride is 97, carbon dioxide 27, BUN 10, creatinine 0.7, GFR greater than 60, fasting glucose 196, calcium is 8, phosphorus 2.9. ASSESSMENT AND PLAN: 1. Esophagitis and gastritis. Patient with possible underlying candidal esophagitis. Patient finished a course of Diflucan. Patient was on Nystatin oral solution previously. Currently, the patient is still requiring a GI cocktail and Protonix to control the symptoms in order to tolerate any type of oral intake. Patient does show some improvement since admission. Will continue to advance diet as tolerated. 2. Orthostatic hypotension. Patient continues to be orthostatic, resulting in significant dizziness and frequent falls. Patient is currently continuing on intravenous (IV) fluids to supplement poor oral intake. There is also a suspicion that patient's orthostasis may be from neurological source. We will monitor the patient's orthostatics every 8 hours along with vital monitoring. The patient was started on midodrine. 3. Type 1 diabetes. The patient has an insulin pump. However, last time when the patient tried to restart the insulin pump, the patient had a hypoglycemic episode, that occurred on 11/10/2016. At this moment, the patient will just cover with sliding scale. 4. Giant cell arteritis. Patient has been taking steroids chronically. The last time the patient had suboccipital neck pain, it resolved with increase of steroids and after the resolution of the pain and patient's steroid tapering back to home dose. Now, patient started having recurrence of the same neck pain. I will start to increase the steroid slowly and consult pain management for assistance. 5. Hypertension. On Norvasc. 6. Anxiety, depression. On Celexa. 7. Deep vein thrombosis (DVT) prophylaxis. On heparin. MTDD
[2016-11-14 20:10] VITALS: BP_SYST 118; BP_SYST 90; BP_DIAS 58; BP_DIAS 60
[2016-11-14 20:25] VITALS: BP 105/58
--- NOTE | 2016-11-14 20:25 | CR ---
DATE OF CONSULTATION: 11/14/2016 REFERRING PROVIDER: Laurie Cheema DO CHIEF COMPLAINT: Neck pain. HISTORY OF PRESENT ILLNESS: Mr. Girard is a 56-year-old gentleman who has been hospitalized frequently due to hypoglycemic events. Has had several fall injuries over the past 6 weeks due to this. He has been recently diagnosed with giant cell arteritis. He is an insulin dependent diabetic x 20 years. Today he is complaining of a level 8/10 generalized neck and cervical paraspinal pain. States this began about a month ago. Currently receiving Percocet 5/325 as needed for severe pain episodes. The patient does not feel that it is very helpful. He did receive one dose of IV morphine 2 mg this afternoon and reported good pain control for a short time afterwards. Denies recent fever, illness, or sudden weight loss. Reporting normal bowel and bladder function. PAST MEDICAL HISTORY: Giant cell arteritis, type 1 diabetes, hypertension, dyslipidemia, gastroesophageal reflux disease, hypertension, depression, migraines. PAST SURGICAL HISTORY: None. FAMILY HISTORY: Noncontributory. SOCIAL HISTORY: Quit smoking 15 years ago. Denies any alcohol use. Denies illicit drug use. He is not . He has three children. He lives nearby his mother. REVIEW OF SYSTEMS: Constitutional: No recent fever or illness. Reports weight is stable. HEENT: History of headaches associated with arteritis. Cardiovascular: Denies chest pains or shortness of breath. Gastrointestinal: Denies nausea, vomiting or diarrhea. Reporting normal bowel movements. Genitourinary: Reporting normal urination. Denies hematuria. ' Neurological: Positive for migraine headaches and headaches associated with arteritis. Denies seizure problems. Endocrine: Positive for insulin-dependent diabetes mellitus. Denies thyroid disorder. Psychiatric: Positive for depression but denies suicidal ideations. Musculoskeletal: Denies any chronic painful joints or swollen, red, hot joints. PHYSICAL EXAMINATION: Awake, alert, pleasant. Vital signs: 97.8, 68, 18, blood pressure 158/88, oxygen saturation 100% on room air. Cardiac: S1, S2, normal rate and rhythm. Respiratory: Lung sounds clear. Respirations nonlabored. Inspection of spine: Tenderness and trigger points elicited in the trapezius area bilaterally. Muscle strength of the upper extremities is 5/5. Equal strong deli manager strength bilateral hands. Normal sensation to light touch both extremities. Denies radicular symptoms. Range of joint motion of the neck is full with reports of increased pain with lateral rotation. DIAGNOSTIC DATA: Neck CT 11/03/2016 with contrast: There is no neck mass or adenopathy. ASSESSMENT: Myofascial pain, cervicalgia. PLAN: Recommend trial of trigger point injections in the neck area while he is hospitalized. He has been talking to his family physician about a referral to the pain center as an outpatient which would have to come from his primary care provider when he follows up after this hospital stay. The patient is receptive. Recommend trial of [place] topical three times a day to the neck area. Recommend a 10-day course of muscle relaxants, i.e., baclofen 5 mg three times a day. Recommend discontinuing oxycodone. Try tramadol 50 mg two tablets every 6 hours as needed for severe pain episodes. I will check into availability for trigger point injections and get back to the patient and his nurse tomorrow regarding setting this up at the pain center. Thank you for allowing us to participate in the care of your patient Hermann Girard. Should you have any questions or concerns, please do not hesitate to contact me. Sincerely, Kerrie Constantino, Family Nurse Practitioner [facility]
[2016-11-14] MEDS: BACLOFEN 10 MG TAB PO SCH (21:32)
[2016-11-14] MEDS: LATANOPROST 0.005% OPHTH SOLN 2.5 ML OU SCH (22:24)
[2016-11-15] MEDS: SUCRALFATE SUSP 1GM/10ML UD PO SCH ×4 (00:17→17:05)
[2016-11-15] MEDS: traMADol 50 MG TAB PO PRN ×2 (00:18→11:26)
[2016-11-15] MEDS: NS 1,000 ML IV SCH ×2 (01:36→16:13)
[2016-11-15] MEDS: HEPARIN SOD (PORCINE) 5000 UNITS/ML VIAL SQ SCH (05:53)
[2016-11-15] MEDS: SODIUM CHLORIDE 0.9% INJ 10 ML SYR IV SCH ×2 (05:53→16:05)
[2016-11-15 06:00] VITALS: BP 157/85
[2016-11-15 06:18] LABS: MEAN CORPUSCULAR HEMOGLOBIN 31.3 pg (27.0-33.0); MEAN CORPUSCULAR HGB CONC 34.7 g/dl (32.0-36.5); RED CELL DISTRIBUTION WIDTH 13.1 % (11.5-14.5); WHITE BLOOD COUNT 8.8 K/mm3 (4.0-10.0)
[2016-11-15 06:27] LABS: ANION GAP 10 MEQ/L (8-16); BLOOD UREA NITROGEN 13 MG/DL (7-18); CARBON DIOXIDE LEVEL 24 MEQ/L (21-32); CHLORIDE LEVEL 99 MEQ/L (98-107); CREATININE FOR GFR 0.78 MG/DL (0.70-1.30); GLOMERULAR FILTRATION RATE > 60.0 (>56); GLUCOSE, FASTING 265 MG/DL (70-105); POTASSIUM SERUM 4.5 MEQ/L (3.5-5.1); SODIUM LEVEL 133 MEQ/L (136-145)
[2016-11-15 06:30] LABS: ALBUMIN 2.1 GM/DL (3.2-5.2); ALBUMIN/GLOBULIN RATIO 0.58 (1.00-1.93); BILIRUBIN,DIRECT 0.2 MG/DL (0.0-0.2); BILIRUBIN,TOTAL 0.5 MG/DL (0.2-1.0); TOTAL PROTEIN 5.7 GM/DL (6.4-8.2)
[2016-11-15] MEDS: BACLOFEN 10 MG TAB PO SCH (09:00)
[2016-11-15] MEDS: GI COCKTAIL 50ML BTL(HYOSCYAMINE/MAALOX/LIDOCAINE VISCOUS)(1:3:1) PO PRN ×2 (10:04→16:04)
[2016-11-15] MEDS: ATORVASTATIN 20 MG TAB PO SCH (10:04)
[2016-11-15] MEDS: predniSONE 20 MG TAB PO SCH ×2 (10:05→21:20)
[2016-11-15] MEDS: PANTOPRAZOLE 40MG INJ (PROTONIX) (C9113) IV SCH ×2 (10:05→21:22)
[2016-11-15] MEDS: CitaloPRAM (CeleXA) 20 MG TAB PO SCH (10:05)
[2016-11-15] MEDS: ASPIRIN 81 MG ENTERIC TAB PO SCH (10:05)
[2016-11-15] MEDS: MIDODRINE 5 MG TAB PO SCH ×2 (10:05→16:05)
[2016-11-15] MEDS: LEVEMIR (INSULIN DETEMIR) 1 UNITS/0.01ML SC SCH (10:06)
[2016-11-15] MEDS: HumaLOG INSULIN (NovoLOG) PER UNIT SC SCH ×4 (10:07→21:00)
--- NOTE | 2016-11-15 10:13 | REP ---
MRI cervical spine without and with IV gadolinium: History: Worsening right upper neck pain. No known injury. Comparison soft tissue neck CT study is from November 03, 2016. The history for that prior CT study of the neck was of frequent falls. Technique: Sagittal and axial T1 and T2-weighted scans are acquired in the usual fashion with and without fat saturation. Sequences include spin echo, turbo spin-echo, and STIR imaging sequences. MRI findings: Cervical vertebral body heights are preserved. Alignment is normal. There is some wedge compression fracture deformity however at the T3 vertebral body with approximately 25-30% loss of anterior vertebral body height. Cortical and medullary bone signal intensity is normal in the T3 vertebral body however consistent with this being a subacute or chronic compression fracture deformity. No other wedge compression deformity is seen. There is degenerative narrowing of the T3-T4 disc and a Schmorl's node is seen in the superior endplate of T3. This indicates degenerative disc disease. The cervical cord is normal in coarse, caliber, and signal intensity on T1 and T2-weighted scans. Axial and sagittal images at the C2-3 level show no significant abnormality. At C3-4, there is right-sided uncovertebral spurring producing mild neural foraminal encroachment. No other abnormality. At C4-C5, there is central disc bulging which subtly effaces the ventral margin of the thecal sac. No central canal stenosis is seen. No other finding. At C5-C6, there is diffuse disc bulging and posterior osteophytic ridging indenting the ventral thecal sac margin. No cord compression is seen. Mild bilateral uncovertebral spurring is present at C5-6. At C6-C7, and at T7-T1, there is no significant abnormality. There is minimal bulging of the T3-T4 disc centrally. Impression: 1. Mild degenerative disc disease, most pronounced at C5-6 where there is diffuse disc bulging, posterior osteophytic ridging and bilateral uncovertebral spurring. 2. Right-sided uncovertebral spurring is noted at C3-4 as well. 3. Also noted is an old appearing wedge compression deformity at the 3rd thoracic vertebral body. Signed by Terrell Pichardo MD 11/15/2016 12:57 P
[2016-11-15] MEDS: BACLOFEN 5MG PER 1/2 TABLET PO SCH ×3 (11:24→21:21)
[2016-11-15] MEDS: COSOPT OCUMETER PLUS 10ML (DORZOLAMIDE/TIMOLOL) OU SCH ×2 (11:25→21:25)
[2016-11-15] MEDS: ANALGESIC BALM CRM 120 GM TOP SCH ×4 (11:25→21:23)
[2016-11-15 13:51] VITALS: BP_SYST 122; BP_SYST 76; BP_SYST 78; BP_DIAS 52; BP_DIAS 58
[2016-11-15 14:00] VITALS: BP 109/67
[2016-11-15] MEDS: LATANOPROST 0.005% OPHTH SOLN 2.5 ML OU SCH (21:24)
[2016-11-15 21:25] VITALS: BP 168/82
[2016-11-15 23:00] VITALS: BP_SYST 132; BP_SYST 88; BP_SYST 94; BP_DIAS 56; BP_DIAS 60; BP_DIAS 64
[2016-11-16] MEDS: SUCRALFATE SUSP 1GM/10ML UD PO SCH ×4 (00:29→18:23)
[2016-11-16] MEDS: NS 1,000 ML IV SCH (05:03)
[2016-11-16] MEDS: SODIUM CHLORIDE 0.9% INJ 10 ML SYR IV SCH ×2 (05:04→18:23)
[2016-11-16 05:50] LABS: MEAN CORPUSCULAR HEMOGLOBIN 30.3 pg (27.0-33.0); MEAN CORPUSCULAR HGB CONC 34.1 g/dl (32.0-36.5); RED CELL DISTRIBUTION WIDTH 13.3 % (11.5-14.5); WHITE BLOOD COUNT 12.4 K/mm3 (4.0-10.0)
[2016-11-16 06:00] VITALS: BP_SYST 110; BP_SYST 120; BP_SYST 135; BP_DIAS 60; BP_DIAS 74
[2016-11-16 06:05] LABS: ANION GAP 9 MEQ/L (8-16); BLOOD UREA NITROGEN 18 MG/DL (7-18); CALCIUM LEVEL 8.3 MG/DL (8.5-10.1); CARBON DIOXIDE LEVEL 25 MEQ/L (21-32); CHLORIDE LEVEL 98 MEQ/L (98-107); CREATININE FOR GFR 0.84 MG/DL (0.70-1.30); GLOMERULAR FILTRATION RATE > 60.0 (>56); GLUCOSE, FASTING 326 MG/DL (70-105); POTASSIUM SERUM 4.4 MEQ/L (3.5-5.1); SODIUM LEVEL 132 MEQ/L (136-145)
[2016-11-16] MEDS: MIRALAX *UNIT DOSE* 17GM PACKET PO PRN (06:07)
[2016-11-16] MEDS ORDERED: SODIUM CHLORIDE 0.9% 1000 ML IV ONE (06:15)
[2016-11-16] MEDS: MIDODRINE 5 MG TAB PO SCH ×2 (08:02→16:00)
[2016-11-16] MEDS: LEVEMIR (INSULIN DETEMIR) 1 UNITS/0.01ML SC SCH (08:03)
[2016-11-16] MEDS: BACLOFEN 5MG PER 1/2 TABLET PO SCH ×3 (08:03→21:20)
[2016-11-16] MEDS: ASPIRIN 81 MG ENTERIC TAB PO SCH (08:03)
[2016-11-16] MEDS: ATORVASTATIN 20 MG TAB PO SCH (08:03)
[2016-11-16] MEDS: CitaloPRAM (CeleXA) 20 MG TAB PO SCH (08:03)
[2016-11-16] MEDS: HumaLOG INSULIN (NovoLOG) PER UNIT SC SCH ×4 (08:04→21:19)
[2016-11-16] MEDS: predniSONE 20 MG TAB PO SCH ×2 (08:04→21:20)
[2016-11-16] MEDS: COSOPT OCUMETER PLUS 10ML (DORZOLAMIDE/TIMOLOL) OU SCH ×2 (08:04→21:23)
[2016-11-16] MEDS: ANALGESIC BALM CRM 120 GM TOP SCH ×4 (08:05→21:23)
[2016-11-16] MEDS: PANTOPRAZOLE 40MG INJ (PROTONIX) (C9113) IV SCH ×2 (08:09→21:20)
[2016-11-16] MEDS: SODIUM CHLORIDE 0.9% INJ 10 ML SYR IV PRN (08:10)
[2016-11-16] MEDS: GI COCKTAIL 50ML BTL(HYOSCYAMINE/MAALOX/LIDOCAINE VISCOUS)(1:3:1) PO PRN ×2 (09:00→19:45)
--- NOTE | 2016-11-16 13:16 | IPN ---
DATE: 11/15/2016 SUBJECTIVE: Patient seen and examined in the room today. Patient stated his neck pain shows significant improvement. Patient was seen by pain management yesterday. Per patient, patient has been having dizziness during position change for a long duration. Previously, he was told that his diabetes has made significant contribution to his symptoms. Patient continues to become orthostatic for most of the blood pressure measurements. OBJECTIVE: VITAL SIGNS: Temperature is 97.6, pulse is 78, respirations 16, blood pressure is 157/85, pulse oximetry 98% on room air. GENERAL: No sign of acute distress, alert and oriented times three. HEENT: Normocephalic, atraumatic. Extraocular motor grossly intact. CARDIOVASCULAR: Positive S1, S2, regular rate. LUNGS: Clear to auscultation bilaterally. ABDOMEN: Soft, nontender, nondistended. Bowel sounds present. EXTREMITIES: No edema. No sign of cyanosis. LABORATORY DATA: WBC 8.8, hemoglobin 10.3, hematocrit 29.6, platelet count is 277. Sodium is 133, potassium 4.5, chloride is 99, carbon dioxide 24, BUN 13, creatinine 0.78, GFR greater than 60, fasting glucose 265. A1c is 9.4. Calcium is 8. Total bilirubin 0.5, direct bilirubin 0.2, AST 21, ALT 75, alkaline phosphatase 235, total protein 5.7, albumin 2.1. ASSESSMENT AND PLAN: 1. Orthostatic hypotension. Patient continues on intravenous (IV) support. Patient started a trial of midodrine; however, patient still continues to become orthostatic. In the afternoon, there was orthostatic blood pressure measured. When patient supine he has blood pressure of 122/58. When he is sitting the blood pressure is 78/52. The heart rate started to some change now. The pulse will increase from 72 to 88 when patient tries to sit up from supine position. We do believe patient's orthostatic hypotension is multifactorial due to the fluid status changes and also the chronic uncontrolled type 1 diabetes. Patient had A1c of 9. Will continue to advance the midodrine as tolerated. 2. Esophagitis/gastritis. Patient has possible underlying [place] esophagitis. Patient finished a course of Diflucan. Patient had nystatin oral solution previously. Still requires gastrointestinal (GI) cocktail Protonix to control the symptoms, but patient is able to show some improvement of oral intake. 3. Type 1 diabetes with A1c of 9.4. Patient had an insulin pump. When patient tried to restart using insulin pump on 11/10/2016, patient had a hypoglycemic episode. Glucose was at 30. Now patient is currently with a sliding scale. 4. Giant cell arteritis. Patient is taking steroid chronically. 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 5. Neck pain. Pain management was consulted. MRI was performed. There is no significant finding noted. Patient's neck pain did improve with increased dose of steroid . Currently patient's pain is very well controlled. Patient is on prednisone 40 mg by mouth daily. 6. Anxiety/depression, on Celexa. 7. Hypertension, on Norvasc. 8. Deep vein thrombosis (DVT) prophylaxis, on heparin. MTDD
--- NOTE | 2016-11-16 13:56 | IPN ---
DATE: 11/16/2016 SUBJECTIVE: Patient is seen and examined in the room today. The patient stated he feels better in general. Still having intermittent abdominal pain, but controlled with GI cocktail. Able to tolerate oral diet. The patient has been getting orthostatic measures. Today the patient denies any symptoms even though he is still orthostatic from the measurements, but he does not feel dizzy or weak anymore. He feels that he is able to perform better with physical therapy. OBJECTIVE: VITAL SIGNS: Temperature 97.7, pulse is 69, respirations 16, blood pressure 135/74, pulse oximetry 98% in room air. GENERAL: No signs of acute distress. Alert and oriented times three. HEENT: Normocephalic, atraumatic. Extraocular motors grossly intact. CARDIOVASCULAR: Positive S1 and S2, regular rate. LUNGS: Clear to auscultation bilaterally. ABDOMEN: Soft, nontender, nondistended. Bowel sounds present. No rebound, no guarding. EXTREMITIES: No edema. No signs of cyanosis. LABORATORY DATA: WBC 12.4, hemoglobin 10.3, hematocrit 30.1, platelet count 420. Sodium is 132, potassium 4.4, chloride is 98, carbon dioxide 25, BUN 18, creatinine 0.84, GFR greater than 60, fasting glucose is 326. Calcium is 8.3. ASSESSMENT/PLAN: 1. Orthostatic hypotension. The magnitude of the drop during the position change is not as significant as before. The patient still has orthostatic hypotension on the measurements, but the patient stated he is symptomatic and he is improving. The patient is continued on the midodrine and the dose has been increasing for the past few days. The patient continues to receive IV fluid. We did notice there is some heart rate increase with a decrease of blood pressures. The patient's orthostatic hypotension is most likely multifactorial. It could be due to dehydration from poor oral intake and also from uncontrolled type 1 diabetes. 2. Esophagitis/gastritis. Patient finished a course of Diflucan for steven esophagitis. Patient also tried the nystatin oral solution previously. Patient is using GI cocktail and Protonix to control the symptoms. Patient continues to improve his oral intake. 3. Type 1 diabetes with A1c of 9.4. Patient used to have an insulin pump. There were multiple incidents where the patient had hypoglycemic episodes. The most recent one was on 11/10/2016 when the patient tried to restart the insulin pump. The patient had a glucose of 30. Currently patient is strictly covered with a sliding scale and Levemir. 4. Giant cell arteritis. Patient has been taking steroid chronically. There is a suspicion the patient may have a flare-up of previous disease. The patient is currently taking increased dosage of prednisone. 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 5. Neck pain. MRI was performed. No significant finding was noted. Pain management has been consulted. Patient is scheduled for trigger point injection today. Will continue to defer pain control to pain management. We appreciate their assistance. 6. Anxiety/depression, on Celexa. 7. Hypertension, on Norvasc. 8. Deep vein thrombosis (DVT) prophylaxis, on heparin.
[2016-11-16 14:30] VITALS: BP_SYST 100; BP_SYST 110; BP_SYST 160; BP_DIAS 50; BP_DIAS 80; BP_DIAS 89
[2016-11-16] MEDS: ACETAMINOPHEN TAB 650MG DOSE (2X325MG) PO PRN (21:20)
[2016-11-16] MEDS: LATANOPROST 0.005% OPHTH SOLN 2.5 ML OU SCH (21:23)
[2016-11-16 22:00] VITALS: BP_SYST 122; BP_SYST 126; BP_SYST 130; BP_SYST 142; BP_DIAS 56; BP_DIAS 58; BP_DIAS 74; BP_DIAS 75
[2016-11-16] MEDS ORDERED: LIDOCAINE 5% OINT 30 GM TOP SCH (22:30)
[2016-11-16] MEDS: HEPARIN SOD (PORCINE) 5000 UNITS/ML VIAL SQ SCH (22:42)
[2016-11-17] MEDS: NS 1,000 ML IV SCH ×2 (00:22→07:30)
[2016-11-17] MEDS: SUCRALFATE SUSP 1GM/10ML UD PO SCH ×4 (00:22→17:32)
[2016-11-17 02:00] VITALS: BP 152/69
[2016-11-17] MEDS: LIDOCAINE 5% OINT 30 GM TOP PRN ×2 (05:09→19:55)
[2016-11-17] MEDS: HEPARIN SOD (PORCINE) 5000 UNITS/ML VIAL SQ SCH ×3 (05:10→21:15)
[2016-11-17 05:32] LABS: MEAN CORPUSCULAR HEMOGLOBIN 31.2 pg (27.0-33.0); MEAN CORPUSCULAR VOLUME 89.3 fl (80.0-96.0); RED CELL DISTRIBUTION WIDTH 13.9 % (11.5-14.5); WHITE BLOOD COUNT 11.1 K/mm3 (4.0-10.0)
[2016-11-17 05:46] LABS: ANION GAP 8 MEQ/L (8-16); BLOOD UREA NITROGEN 18 MG/DL (7-18); CALCIUM LEVEL 7.6 MG/DL (8.5-10.1); CARBON DIOXIDE LEVEL 25 MEQ/L (21-32); CHLORIDE LEVEL 101 MEQ/L (98-107); GLOMERULAR FILTRATION RATE > 60.0 (>56); GLUCOSE, FASTING 361 MG/DL (70-105); POTASSIUM SERUM 4.6 MEQ/L (3.5-5.1); SODIUM LEVEL 134 MEQ/L (136-145)
[2016-11-17 06:00] VITALS: BP_SYST 111; BP_SYST 126; BP_SYST 130; BP_SYST 132; BP_DIAS 62; BP_DIAS 66; BP_DIAS 68; BP_DIAS 82
[2016-11-17] MEDS: SODIUM CHLORIDE 0.9% INJ 10 ML SYR IV SCH ×2 (06:00→17:32)
[2016-11-17] MEDS: LEVEMIR (INSULIN DETEMIR) 1 UNITS/0.01ML SC SCH (08:37)
[2016-11-17] MEDS: HumaLOG INSULIN (NovoLOG) PER UNIT SC SCH ×4 (08:37→21:16)
[2016-11-17] MEDS: predniSONE 20 MG TAB PO SCH (08:38)
[2016-11-17] MEDS: ASPIRIN 81 MG ENTERIC TAB PO SCH (08:38)
[2016-11-17] MEDS: GI COCKTAIL 50ML BTL(HYOSCYAMINE/MAALOX/LIDOCAINE VISCOUS)(1:3:1) PO PRN ×2 (08:38→16:45)
[2016-11-17] MEDS: PANTOPRAZOLE 40MG INJ (PROTONIX) (C9113) IV SCH ×2 (08:38→21:16)
[2016-11-17] MEDS: ATORVASTATIN 20 MG TAB PO SCH (08:38)
[2016-11-17] MEDS: CitaloPRAM (CeleXA) 20 MG TAB PO SCH (08:38)
[2016-11-17] MEDS: COSOPT OCUMETER PLUS 10ML (DORZOLAMIDE/TIMOLOL) OU SCH ×2 (08:39→21:16)
[2016-11-17] MEDS: ANALGESIC BALM CRM 120 GM TOP SCH ×4 (08:39→21:17)
[2016-11-17] MEDS: BACLOFEN 5MG PER 1/2 TABLET PO SCH (08:39)
[2016-11-17] MEDS: SODIUM CHLORIDE 0.9% INJ 10 ML SYR IV PRN (08:39)
[2016-11-17] MEDS: MIDODRINE 5 MG TAB PO SCH ×3 (08:43→16:44)
[2016-11-17 13:40] VITALS: BP 162/80
--- NOTE | 2016-11-17 13:58 | IPN ---
DATE: 11/17/2016 SUBJECTIVE: Patient is seen and examined in the room today. The patient is sitting comfortably in the chair. However, per patient, the patient stated yesterday morning he felt fine. During orthostatic measurement, he did not have any symptoms; however, afternoon time when he was going through his physical therapy session he started having significant lightheadedness and unsteady gait. When they tried to sit him up or stand him up, he was not able to walk very far due to the instability. Still tried to advance his diet as tolerated. Discomfort is controlled with a GI cocktail and Protonix. OBJECTIVE: VITAL SIGNS: Temperature 97.7, pulse is 54, respirations 16, orthostatic blood pressure measurement showed supine 130/60, sitting 126/66, standing 111/68. GENERAL: No signs of acute distress. Alert and oriented times three. HEENT: Normocephalic, atraumatic. Extraocular motor grossly intact. CARDIOVASCULAR: Positive S1 and S2, regular rate. LUNGS: Clear to auscultation bilaterally. ABDOMEN: Soft, nontender, nondistended. Bowel sounds present. No rebound, no guarding. EXTREMITIES: No edema. No signs of cyanosis. LABORATORY DATA: WBC 11.1, hemoglobin 9.9, hematocrit 28.2, platelet count 361. Sodium is 134, potassium 4.6, chloride 101, carbon dioxide 25, BUN 18, creatinine 0.9, GFR greater than 60, fasting glucose is 361. Calcium is 7.6. ASSESSMENT/PLAN: 1. Orthostatic hypotension. Will continue to titrate up the midodrine dosage. The patient will be on 10 mg by mouth three times a day. Continue to follow with physical therapy. The patient currently is still receiving IV fluid. The blood pressure discrepancy has been improved. The patient's orthostatic hypotension can be multifactorial, initially due to poor intake from severe esophagitis/gastritis. The patient also had a prolonged type 1 diabetes uncontrolled resulting in neuropathy. During physical therapy, besides the gait instability, the patient also demonstrates some behavioral abnormalities. It does raise a question of any other contributing cause for patient's behavior. We will obtain MRI of the brain and followup with the results. 2. Esophagitis/gastritis. Finished a course of Diflucan and the patient had Nystatin oral solution swallow before. Currently patient is using GI cocktail and Protonix to control the symptoms. Patient is able to advance his diet. 3. Type 1 diabetes with A1c of 9.4. Recommend not to use the insulin pump at this moment. On 11/10/2016 when the patient tried to restart his insulin pump, it resulted in a fasting glucose of 30s. The patient currently is covered with Levemir and sliding scale. 4. Giant cell arteritis. Patient is on steroid chronically. The patient received nerve block. Headache has been improving. Will start tapering down the steroids. The patient needs to follow up with rheumatology in [place] for his giant cell arteritis. The patient has not been on any type of immunosuppressant in the past. 5. Neck pain. MRI performed. No acute findings. The patient just had a nerve block. He stated his symptoms have significant improvement and we have started tapering down the steroid. 6. Anxiety/depression, on Celexa. 7. Hypertension, on Norvasc. 8. Deep vein thrombosis (DVT) prophylaxis, on heparin.
[2016-11-17 15:05] VITALS: BP_SYST 100; BP_SYST 108; BP_SYST 162; BP_DIAS 60; BP_DIAS 70; BP_DIAS 82
--- NOTE | 2016-11-17 15:22 | REP ---
MRI BRAIN WITHOUT CONTRAST FOLLOWED BY WITH CONTRAST: HISTORY: Unsteady gait in behavioral abnormality. MRI gadolinium enhancement dose: 13.2 mL of intravenous ProHance were administered Axial, sagittal and coronal imaging planes are utilized. T1 and T2-weighted scans include spin echo, fast spin echo, FLAIR, and diffusion weighted scans. Comparison head CT study February 10, 2017. MRI FINDINGS: There is a low T2 intermediate T1 signal intensity material extending along the left dorsolateral aspect of the clivus up from the foramen magnum. This extends down to the level of the transverse ligament at C1-2 and is felt to be synovial hypertrophy or pannus associated with the C1-C2 joint level. This indents the ventral subarachnoid space but does not compress the spinal medullary junction. No other extra-axial lesion is seen. There is moderate diffuse cerebral atrophy and concordant ventricular enlargement. No bony calvarial lesion is seen. Moderate small vessel atherosclerotic changes are seen in the periventricular white matter. There is no evidence of hemorrhage or infarct. Post contrast study shows mild thin peripheral enhancement around the extra-axial plaque-like deposit on the dorsal lateral aspect of the clivus. There is enhancement of normal vascular structures. No other abnormal gadolinium enhancement is seen intracranially. IMPRESSION: Diffuse moderate atrophy and small vessel changes. No acute intracranial lesion. Pannus like material is seen extending along the ventral aspect of the foramen magnum and the dorsal aspect of the left side of the clivus. No neural compression is seen. Signed by Terrell Pichardo MD 11/17/2016 04:45 P
[2016-11-17] MEDS: traMADol 50 MG TAB PO PRN (16:45)
[2016-11-17] MEDS: ACETAMINOPHEN TAB 650MG DOSE (2X325MG) PO PRN (20:01)
[2016-11-17] MEDS: LATANOPROST 0.005% OPHTH SOLN 2.5 ML OU SCH (21:17)
[2016-11-17 22:00] VITALS: BP 145/93
[2016-11-17 22:22] VITALS: BP_SYST 118; BP_SYST 124; BP_SYST 82; BP_DIAS 56; BP_DIAS 71; BP_DIAS 90
[2016-11-17] MEDS ORDERED: KETOROLAC 30 MG/ML VIAL (J1885) IV ONE (23:00)
[2016-11-18] MEDS: SUCRALFATE SUSP 1GM/10ML UD PO SCH ×5 (00:24→23:48)
[2016-11-18] MEDS: NS 1,000 ML IV SCH ×3 (03:38→23:48)
[2016-11-18] MEDS: SODIUM CHLORIDE 0.9% INJ 10 ML SYR IV SCH ×2 (05:10→17:16)
[2016-11-18] MEDS: HEPARIN SOD (PORCINE) 5000 UNITS/ML VIAL SQ SCH ×3 (05:11→21:18)
[2016-11-18] MEDS: traMADol 50 MG TAB PO PRN ×2 (05:23→17:15)
[2016-11-18 05:39] LABS: MEAN CORPUSCULAR HEMOGLOBIN 30.4 pg (27.0-33.0); MEAN CORPUSCULAR HGB CONC 34.3 g/dl (32.0-36.5); MEAN CORPUSCULAR VOLUME 88.5 fl (80.0-96.0); RED CELL DISTRIBUTION WIDTH 13.6 % (11.5-14.5); WHITE BLOOD COUNT 10.1 K/mm3 (4.0-10.0)
[2016-11-18 05:52] LABS: ANION GAP 9 MEQ/L (8-16); BLOOD UREA NITROGEN 19 MG/DL (7-18); CALCIUM LEVEL 7.1 MG/DL (8.5-10.1); CARBON DIOXIDE LEVEL 27 MEQ/L (21-32); CHLORIDE LEVEL 100 MEQ/L (98-107); CREATININE FOR GFR 0.87 MG/DL (0.70-1.30); GLOMERULAR FILTRATION RATE > 60.0 (>56); GLUCOSE, FASTING 238 MG/DL (70-105); POTASSIUM SERUM 4.1 MEQ/L (3.5-5.1); SODIUM LEVEL 136 MEQ/L (136-145)
[2016-11-18 06:00] VITALS: BP 144/78
[2016-11-18] MEDS ORDERED: KETOROLAC 30 MG/ML VIAL (J1885) IV ONE (07:00)
[2016-11-18] MEDS: HumaLOG INSULIN (NovoLOG) PER UNIT SC SCH ×4 (08:20→21:00)
[2016-11-18] MEDS: ATORVASTATIN 20 MG TAB PO SCH (08:22)
[2016-11-18] MEDS: CitaloPRAM (CeleXA) 20 MG TAB PO SCH (08:22)
[2016-11-18] MEDS: PANTOPRAZOLE 40MG INJ (PROTONIX) (C9113) IV SCH ×2 (08:22→21:21)
[2016-11-18] MEDS: MIDODRINE 5 MG TAB PO SCH ×3 (08:23→17:14)
[2016-11-18] MEDS: ASPIRIN 81 MG ENTERIC TAB PO SCH (08:23)
[2016-11-18] MEDS: predniSONE 20 MG TAB PO SCH (08:24)
[2016-11-18] MEDS: LEVEMIR (INSULIN DETEMIR) 1 UNITS/0.01ML SC SCH (08:24)
[2016-11-18] MEDS: ANALGESIC BALM CRM 120 GM TOP SCH ×4 (08:26→21:20)
[2016-11-18] MEDS: COSOPT OCUMETER PLUS 10ML (DORZOLAMIDE/TIMOLOL) OU SCH ×2 (08:26→21:20)
[2016-11-18 13:25] VITALS: BP_SYST 117; BP_SYST 95; BP_DIAS 54; BP_DIAS 66
[2016-11-18] MEDS: GI COCKTAIL 50ML BTL(HYOSCYAMINE/MAALOX/LIDOCAINE VISCOUS)(1:3:1) PO PRN (13:25)
[2016-11-18 14:00] VITALS: BP 137/74
--- NOTE | 2016-11-18 15:02 | IPN ---
DATE: 11/18/2016 SUBJECTIVE: Patient is seen and examined in the room today. Patient recently had cervical spinal injections, however he states initially the neck pain subsided, however it recurred today, causing significant pain. Patient continues to have orthostatic hypotension. OBJECTIVE: VITAL SIGNS: Temperature 96.5, pulse is 66, respiration rate is 16, blood pressure is 144/78, pulse oximetry is 99% in room air. GENERAL: Moderate distress secondary to persistent right neck pain. Alert and oriented times three. HEENT: Normocephalic, atraumatic. Extraocular motor grossly intact. CARDIOVASCULAR: Positive S1 and S2, regular rate. LUNGS: Clear to auscultation bilaterally. ABDOMEN: Soft, nontender, nondistended. Bowel sounds present. No rebound, no guarding. EXTREMITIES: No edema. No signs of cyanosis. LABORATORY DATA: WBC is 10.1, hemoglobin 9.9, hematocrit 28.8, platelet count 363. Sodium is 136, potassium 4.1, chloride 100, carbon dioxide 27, BUN 19, creatinine 0.87, GFR greater than 60, fasting glucose is 238. Calcium is 7.1. ASSESSMENT/PLAN: 1. Orthostatic hypotension. Patient is already on the maximum dose of midodrine which is 10 mg by mouth three times a day. Patient has been receiving IV fluids, however, the patient has persistent orthostatic hypotension. Patient does have type 1 diabetes with poorly controlled sugars. Will start a trial of fluticasone. Will have patient continue working with physical therapy. 2. Esophagitis/gastritis. Finished a course of Diflucan, but patient is still requiring GI cocktail before every meal. He stated he is able to advance the diet and epigastric esophagus pain continues to be controlled. Patient is actually able to tolerate solids now. Continue on the Protonix. 3. Type 1 diabetes with A1c of 9.4. Patient had an episode of hypotension when he restarted his insulin pump on November 10, 2016 with fasting glucose of 302. Patient now is on Levemir and covered with sliding scale. 4. Giant cell arteritis on chronic steroids. At baseline, patient is receiving prednisone 20 mg by mouth daily. Patient has been established with rheumatology in [place], but he has never been on any type of immunosuppressant in the past. 5. Neck pain. MRI performed. No acute findings. The patient had a nerve block, however symptoms have recurred today. Continue with medication recommended by pain management. Will adjust the patient's prednisone dose accordingly. 6. Anxiety/depression, on Celexa. 7. Hypertension, on Norvasc. 8. Deep vein thrombosis (DVT) prophylaxis, on heparin.
[2016-11-18] MEDS: ACETAMINOPHEN TAB 650MG DOSE (2X325MG) PO PRN ×2 (15:19→21:18)
[2016-11-18] MEDS: FLUDROCORTISONE ACETATE 0.1 MG TAB PO SCH (15:24)
[2016-11-18 20:00] VITALS: BP_SYST 108; BP_SYST 122; BP_SYST 164; BP_DIAS 70; BP_DIAS 84
[2016-11-18] MEDS: LATANOPROST 0.005% OPHTH SOLN 2.5 ML OU SCH (21:19)
[2016-11-18 22:00] VITALS: BP 164/84
[2016-11-18] MEDS: RIZATRIPTAN BENZOATE 10 MG TAB PO PRN (23:51)
[2016-11-19] VITALS (7 sets, daily range): BP systolic 102–179; BP diastolic 60–89
[2016-11-19] MEDS: KETOROLAC 30 MG/ML VIAL (J1885) IV PRN (02:24)
[2016-11-19] MEDS: HEPARIN SOD (PORCINE) 5000 UNITS/ML VIAL SQ SCH ×3 (05:07→21:03)
[2016-11-19] MEDS: SUCRALFATE SUSP 1GM/10ML UD PO SCH ×3 (05:07→17:35)
[2016-11-19] MEDS: SODIUM CHLORIDE 0.9% INJ 10 ML SYR IV SCH ×2 (05:08→17:38)
[2016-11-19 05:51] LABS: ANION GAP 6 MEQ/L (8-16); BLOOD UREA NITROGEN 14 MG/DL (7-18); CARBON DIOXIDE LEVEL 30 MEQ/L (21-32); CHLORIDE LEVEL 97 MEQ/L (98-107); CREATININE FOR GFR 0.85 MG/DL (0.70-1.30); GLOMERULAR FILTRATION RATE > 60.0 (>56); GLUCOSE, FASTING 271 MG/DL (70-105); POTASSIUM SERUM 3.9 MEQ/L (3.5-5.1); SODIUM LEVEL 133 MEQ/L (136-145)
[2016-11-19] MEDS: ONDANSETRON 4MG/2ML VIAL (J2405) IV PRN ×3 (06:13→18:28)
[2016-11-19 06:43] LABS: MEAN CORPUSCULAR HEMOGLOBIN 31.2 pg (27.0-33.0); MEAN CORPUSCULAR HGB CONC 34.9 g/dl (32.0-36.5); MEAN CORPUSCULAR VOLUME 89.3 fl (80.0-96.0); RED CELL DISTRIBUTION WIDTH 13.5 % (11.5-14.5); WHITE BLOOD COUNT 10.9 K/mm3 (4.0-10.0)
[2016-11-19] MEDS: MIDODRINE 5 MG TAB PO SCH ×3 (08:00→16:00)
[2016-11-19] MEDS: HumaLOG INSULIN (NovoLOG) PER UNIT SC SCH ×4 (08:40→21:06)
[2016-11-19] MEDS: PANTOPRAZOLE 40MG INJ (PROTONIX) (C9113) IV SCH ×2 (08:41→21:03)
[2016-11-19] MEDS: COSOPT OCUMETER PLUS 10ML (DORZOLAMIDE/TIMOLOL) OU SCH ×2 (08:42→21:04)
[2016-11-19] MEDS: ANALGESIC BALM CRM 120 GM TOP SCH ×4 (08:43→21:05)
[2016-11-19] MEDS: predniSONE 20 MG TAB PO SCH (08:49)
[2016-11-19] MEDS: ATORVASTATIN 20 MG TAB PO SCH (08:49)
[2016-11-19] MEDS: CitaloPRAM (CeleXA) 20 MG TAB PO SCH (08:49)
[2016-11-19] MEDS: FLUDROCORTISONE ACETATE 0.1 MG TAB PO SCH (08:49)
[2016-11-19] MEDS: ASPIRIN 81 MG ENTERIC TAB PO SCH (08:49)
[2016-11-19] MEDS ORDERED: LEVEMIR (INSULIN DETEMIR) 1 UNITS/0.01ML SC SCH (09:00)
[2016-11-19] MEDS: methylPREDNISolone INJ 125 MG/2 ML VIAL (J2930) IV SCH ×2 (09:58→17:39)
[2016-11-19] MEDS: MORPHINE 2 MG/ML 1ML SYRINGE IV PRN ×2 (09:59→20:36)
--- NOTE | 2016-11-19 13:33 | IPN ---
DATE OF VISIT: 11/19/2016 SUBJECTIVE: The patient is seen and examined in the room today. The patient stated he started having acute recurrence of the right temporal headache, where usually he gets from the giant cell arteritis flare. Continue to have the right upper neck pain. The patient start having nausea and vomiting, also. OBJECTIVE: VITAL SIGNS: Temperature 98.6, pulse is 70, respiration 18, blood pressure is supine is 179/88, sitting is 136/62, standing is 102/60. GENERAL: Moderate distress secondary to persistent neck pain and the temporal headache. Alert and oriented times three. HEENT: Normocephalic, atraumatic. Extraocular motor grossly intact. CARDIOVASCULAR: Positive S1 and S2, regular rate. LUNGS: Clear to auscultation bilaterally. ABDOMEN: Soft, nontender, nondistended. Bowel sounds present. EXTREMITIES: No edema. No sign of cyanosis. LABORATORY DATA: WBC is 10.9, hemoglobin 10.3, hematocrit 29.5, platelet count 329. Sodium is 133, potassium 3.9, chloride 97, carbon dioxide 30, BUN 14, creatinine 0.85, GFR greater than 60, fasting glucose is 271, calcium is 8. ASSESSMENT AND PLAN: 1. Giant cell arteritis flare. Escalated the patient's steroid therapy. The patient will be on intravenous (IV) Solu-Medrol. The patient should really need to be seen by the elementary educator in [place] once the patient is discharged from current hospitalization. The patient has not been on any type of immunosuppressant in the past. The patient has been only taking steroids to control his symptoms. 2. Orthostatic hypotension. Continue to have persistent orthostatic hypotension. The patient's midodrine was increased gradually. Now, he is on maximum dose of midodrine. Start a trial of fludrocortisone. The patient only have one dose today due to significant osmolality. The patient is not able to tolerate oral pill. Will continue to see if the fludrocortisone will help the patient with orthostasis. The patient's orthostatic hypotension multifactorial. It could due to poor oral intake and also chronic uncontrolled type 1 diabetes. Continue working with physical therapy. 3. Esophagitis and gastritis. Finished a course of Diflucan and also the oral Nystatin solutions. The patient's oral intake has been improving previously before today. The patient is taking Protonix and gastrointestinal (GI) cocktail before the oral intake. 4. Type 1 diabetes with A1c of 9.4. The patient's last 24-hour insulin usage was reviewed. I will increase the Levemir dose. However, the patient's oral intake has also has some fluctuations due to intermittent and significant pain interrupting with his oral intake, and he also has nausea and vomiting currently. Also, difficult to control his glucose. 5. Neck pain. MRI performed. No acute findings. The patient had a nerve block by pain management previously. However, symptoms have returned in the last 48 hours. Continue pain medication per pain management recommendations. I will adjust the patient's prednisone dose accordingly. 6. Anxiety and depression, on Celexa. 7. Hypertension, on Norvasc. 8. Deep vein thrombosis (DVT) prophylaxis, on heparin.
[2016-11-19] MEDS: METOCLOPRAMIDE INJ 10MG/2ML VIAL (J2765) IV PRN ×2 (14:08→20:28)
[2016-11-19] MEDS: GI COCKTAIL 50ML BTL(HYOSCYAMINE/MAALOX/LIDOCAINE VISCOUS)(1:3:1) PO PRN (14:49)
[2016-11-19] MEDS: DEXTROSE 50% 50 ML SYRINGE IV PRN (16:39)
[2016-11-19] MEDS: NS 1,000 ML IV SCH (16:44)
[2016-11-19] MEDS: LATANOPROST 0.005% OPHTH SOLN 2.5 ML OU SCH (21:05)
[2016-11-19] MEDS: LEVEMIR (INSULIN DETEMIR) 1 UNITS/0.01ML SC SCH (21:06)
[2016-11-19] MEDS ORDERED: LORazepam 2 MG/ML VIAL (J2060) IV ONE (22:30)
[2016-11-20] MEDS: SUCRALFATE SUSP 1GM/10ML UD PO SCH ×5 (00:14→23:41)
[2016-11-20] MEDS: NS 1,000 ML IV SCH ×2 (02:10→22:04)
[2016-11-20] MEDS: methylPREDNISolone INJ 125 MG/2 ML VIAL (J2930) IV SCH ×3 (02:17→18:31)
[2016-11-20] MEDS: HEPARIN SOD (PORCINE) 5000 UNITS/ML VIAL SQ SCH ×3 (05:28→22:04)
[2016-11-20] MEDS: SODIUM CHLORIDE 0.9% INJ 10 ML SYR IV SCH ×2 (05:29→18:31)
[2016-11-20 05:43] LABS: MEAN CORPUSCULAR HEMOGLOBIN 30.7 pg (27.0-33.0); MEAN CORPUSCULAR HGB CONC 34.5 g/dl (32.0-36.5); WHITE BLOOD COUNT 12.2 K/mm3 (4.0-10.0)
[2016-11-20] MEDS: KETOROLAC 30 MG/ML VIAL (J1885) IV PRN (05:54)
[2016-11-20 06:00] VITALS: BP_SYST 124; BP_SYST 162; BP_DIAS 74; BP_DIAS 98
[2016-11-20 06:25] LABS: ANION GAP 11 MEQ/L (8-16); BLOOD UREA NITROGEN 13 MG/DL (7-18); CALCIUM LEVEL 7.4 MG/DL (8.5-10.1); CARBON DIOXIDE LEVEL 24 MEQ/L (21-32); CHLORIDE LEVEL 102 MEQ/L (98-107); CREATININE FOR GFR 0.63 MG/DL (0.70-1.30); GLOMERULAR FILTRATION RATE > 60.0 (>56); GLUCOSE, FASTING 130 MG/DL (70-105); POTASSIUM SERUM 3.5 MEQ/L (3.5-5.1); SODIUM LEVEL 137 MEQ/L (136-145)
[2016-11-20] MEDS: LEVEMIR (INSULIN DETEMIR) 1 UNITS/0.01ML SC SCH ×2 (09:00→21:00)
[2016-11-20] MEDS: HumaLOG INSULIN (NovoLOG) PER UNIT SC SCH ×4 (09:09→23:42)
[2016-11-20] MEDS: ATORVASTATIN 20 MG TAB PO SCH (09:24)
[2016-11-20] MEDS: CitaloPRAM (CeleXA) 20 MG TAB PO SCH (09:24)
[2016-11-20] MEDS: ASPIRIN 81 MG ENTERIC TAB PO SCH (09:24)
[2016-11-20] MEDS: FLUDROCORTISONE ACETATE 0.1 MG TAB PO SCH (09:25)
[2016-11-20] MEDS: COSOPT OCUMETER PLUS 10ML (DORZOLAMIDE/TIMOLOL) OU SCH ×2 (09:25→22:04)
[2016-11-20] MEDS: PANTOPRAZOLE 40MG INJ (PROTONIX) (C9113) IV SCH ×2 (09:25→22:04)
[2016-11-20] MEDS: MIDODRINE 5 MG TAB PO SCH ×3 (09:25→18:32)
[2016-11-20] MEDS: ANALGESIC BALM CRM 120 GM TOP SCH ×4 (09:26→22:05)
[2016-11-20 14:00] VITALS: BP 140/72
[2016-11-20 15:30] VITALS: BP_SYST 126; BP_SYST 81; BP_SYST 84; BP_DIAS 51; BP_DIAS 54; BP_DIAS 70
--- NOTE | 2016-11-20 15:33 | IPN ---
DATE: 11/20/2016 SUBJECTIVE: Patient is seen and examined in the room today. Patient stated he is continuing to have nausea and vomiting, but no significant abdominal discomfort. Since the restart of the IV Solu-Medrol, the temporal headache and right neck pain has showed significant improvement. The patient continues to have significant orthostasis. This morning, when we tried to sit the patient up, he started to complain about significant dizziness and nausea and vomiting and patient continues to have poor oral intake. OBJECTIVE: VITAL SIGNS: Temperature 98.5, pulse is 69, blood pressure is 162/98 in supine, sitting is 122/74. GENERAL: Mild to moderate distress secondary to persistent nausea. Alert and oriented times three. HEENT: Normocephalic, atraumatic. Extraocular motors grossly intact. CARDIOVASCULAR: Positive S1, S2, regular rate. LUNGS: Clear to auscultation bilaterally. ABDOMEN: Soft, nontender, nondistended. Bowel sounds present. EXTREMITIES: No edema. No sign of cyanosis. LABORATORY DATA: WBC is 12.2, hemoglobin 10.2, hematocrit 29.5, platelet count 290. Sodium is 137, potassium 3.5, chloride 102, carbon dioxide 24, BUN 13, creatinine 0.63, GFR greater than 60, fasting glucose is 130, calcium is 7.4, C-reactive protein is 7.08. Blood cultures are negative after 5 days. ASSESSMENT AND PLAN: 1. Giant cell arteritis flare. We have re-escalated patient's steroid therapy. The patient is currently on IV Solu-Medrol. We have attempted to taper patient's steroids multiple times during this hospitalization, however every time we try to taper patient's steroid down to his home regimen, which is prednisone 20 mg by mouth daily, he starts having an acute flare within days. Patient may need to be on a high dose of steroids in order to control his symptoms for this moment. 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 2. Orthostatic hypotension. Since admission, patient has continued to have significant orthostatic hypotension. Patient is being supported on IV fluids. Now, patient has a significant decrease of oral intake and he started to refuse the medication due to persistent nausea. Continue with IV fluids for now. Patient does have long-term uncontrolled type 1 diabetes which can also contribute to patient's orthostatic hypotension. Continue with physical therapy. In the last few days, I have escalated patient's midodrine dose and he is on the maximum dose of midodrine 10 mg by mouth three times a day. In the last few days, I also started the trial of fludrocortisone 0.5 mg by mouth daily. However, in the last 24-48 hours, due to nausea and vomiting, patient has not been taking at the scheduled time. We will see if the fludrocortisone will help control the patient's symptoms. 3. Gastritis and esophagitis. Patient has finished a course of Diflucan. In the beginning, patient also has tried oral Nystatin solutions. Abdominal pain has been controlled with gastrointestinal (GI) cocktail and IV Protonix. 4. Type 1 diabetes with A1c of 9.4. Patient has an insulin pump. Patient had an incidence of hypoglycemia with a glucose around 30s when he tried to restart the insulin pump. Currently, patient has started to have a fluctuation of oral intake due to persistent nausea and vomiting. Will cover with low dose Levemir insulin and also cover with sliding scale based on patient's oral intake. 5. Neck pain and temporal skull pain, most likely due to giant cell arteritis. MRI was performed, no acute findings. Pain management is consulted. Patient also had a nerve block previously, however it has not been working very well. Currently, with the escalated dose of prednisone, patient shows some symptomatic relief. 6. Anxiety and depression, on Celexa. 7. Hypertension, on Norvasc. 8. Deep vein thrombosis (DVT) prophylaxis, on heparin.
[2016-11-20] MEDS ORDERED: HumaLOG INSULIN (NovoLOG) PER UNIT SC ONE (18:15)
[2016-11-20 22:00] VITALS: BP 153/84
[2016-11-20] MEDS: LATANOPROST 0.005% OPHTH SOLN 2.5 ML OU SCH (22:05)
[2016-11-20] MEDS: traMADol 50 MG TAB PO PRN (23:44)
[2016-11-21] MEDS: methylPREDNISolone INJ 125 MG/2 ML VIAL (J2930) IV SCH (02:09)
[2016-11-21] MEDS: SODIUM CHLORIDE 0.9% INJ 10 ML SYR IV PRN ×2 (02:09→21:19)
[2016-11-21] MEDS: HEPARIN SOD (PORCINE) 5000 UNITS/ML VIAL SQ SCH ×3 (05:00→21:18)
[2016-11-21] MEDS: SUCRALFATE SUSP 1GM/10ML UD PO SCH ×4 (05:00→23:13)
[2016-11-21] MEDS: SODIUM CHLORIDE 0.9% INJ 10 ML SYR IV SCH ×2 (05:01→17:00)
[2016-11-21 05:03] VITALS: BP_SYST 102; BP_SYST 116; BP_SYST 182; BP_DIAS 60; BP_DIAS 67; BP_DIAS 90
[2016-11-21 05:10] VITALS: BP 116/67
[2016-11-21 05:21] LABS: MEAN CORPUSCULAR HEMOGLOBIN 30.3 pg (27.0-33.0); MEAN CORPUSCULAR HGB CONC 34.1 g/dl (32.0-36.5); MEAN CORPUSCULAR VOLUME 88.9 fl (80.0-96.0); WHITE BLOOD COUNT 9.1 K/mm3 (4.0-10.0)
[2016-11-21 05:33] LABS: ANION GAP 9 MEQ/L (8-16); BLOOD UREA NITROGEN 24 MG/DL (7-18); CALCIUM LEVEL 6.8 MG/DL (8.5-10.1); CARBON DIOXIDE LEVEL 24 MEQ/L (21-32); CHLORIDE LEVEL 103 MEQ/L (98-107); CREATININE FOR GFR 0.78 MG/DL (0.70-1.30); GLOMERULAR FILTRATION RATE > 60.0 (>56); GLUCOSE, FASTING 226 MG/DL (70-105); POTASSIUM SERUM 3.8 MEQ/L (3.5-5.1); SODIUM LEVEL 136 MEQ/L (136-145)
[2016-11-21 06:00] VITALS: BP 142/80
[2016-11-21] MEDS: HumaLOG INSULIN (NovoLOG) PER UNIT SC SCH ×4 (09:54→20:39)
[2016-11-21] MEDS: NS 1,000 ML IV SCH ×2 (09:54→23:13)
[2016-11-21] MEDS: ANALGESIC BALM CRM 120 GM TOP SCH ×4 (09:55→21:19)
[2016-11-21] MEDS: LEVEMIR (INSULIN DETEMIR) 1 UNITS/0.01ML SC SCH ×2 (09:55→21:17)
[2016-11-21] MEDS: GI COCKTAIL 50ML BTL(HYOSCYAMINE/MAALOX/LIDOCAINE VISCOUS)(1:3:1) PO PRN (09:55)
[2016-11-21] MEDS: MIDODRINE 5 MG TAB PO SCH ×3 (09:56→17:00)
[2016-11-21] MEDS: ASPIRIN 81 MG ENTERIC TAB PO SCH (09:56)
[2016-11-21] MEDS: ATORVASTATIN 20 MG TAB PO SCH (09:56)
[2016-11-21] MEDS: CitaloPRAM (CeleXA) 20 MG TAB PO SCH (09:56)
[2016-11-21] MEDS: COSOPT OCUMETER PLUS 10ML (DORZOLAMIDE/TIMOLOL) OU SCH ×2 (09:57→21:18)
[2016-11-21] MEDS: PANTOPRAZOLE 40MG INJ (PROTONIX) (C9113) IV SCH ×2 (09:57→21:17)
[2016-11-21] MEDS: FLUDROCORTISONE ACETATE 0.1 MG TAB PO SCH (09:57)
[2016-11-21] MEDS ORDERED: CALCIUM GLUCONATE 1,000 MG in D5W MINI-BAG PLUS 100 ML IV ONE (12:00)
--- NOTE | 2016-11-21 12:13 | IPNPDOC ---
Subjective Date Seen The patient was seen on 11/21/16. Subjective Chief Complaint/HPI She is seen and examined at the bedside this morning. States that his nausea and headache/neck pain have resolved. He reports that he would like to once again work with physical therapy today to get stronger. Denies any acute overnight events. Objective Physical Examination General Exam: Positive: Alert, Cooperative, No Acute Distress ENT Exam: Positive: Atraumatic, Mucous membr. moist/pink Neck Exam: Negative: JVD Chest Exam: Positive: Clear to auscultation, Normal air movement Heart Exam: Positive: Rate Normal, Normal S1, Normal S2 Abdomen Exam: Positive: Soft, Negative: Tenderness Extremity Exam: Negative: Tenderness, Swelling Psych Exam: Positive: Oriented x 3 Assessment /Plan Plan/VTE VTE Prophylaxis Ordered?: Yes Plan Near Syncopal Episode likely 2/2 Orthostatic Hypotension IVF Hydration ordered 2D ECHO notable for Diastolic Dysfunction I do suspect that the patient may have underlying autonomic neuropathy from underlying Type 1 DM causing him to be orthostatic Midodrine has been titrated up to 10 mg TID The patient has also been started on Florinef Will continue checking orthostatic vitals Patient encouraged to sit in chair during the day PT on board for functional optimization Giant cell arteritis Follows with rheumatology as an outpatient The patient did apparently suffer a flare up of skull pain earlier in this admission, and he was given a stronger dose steroid therapy. 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 Raphael revealed grade D Esophagitis with no bleeding noted in the lower third of the esophagus. There was also mild segmental inflammation characterized by congestion and erythema found in the cardia. Biopsy results of the distal esophagus suggestive of stromal tissue with abundant acute and chronic inflammation Stomach biopsy with no significant pathologic change, no Helicobacter organisms identified. The patient's esophagitis is possibly attributable to underlying monilial esophagitis as per surgery s/p completion of Diflucan therapy We will continue with Protonix twice a day, and Carafate. When necessary GI cocktail has also been ordered The patient states that his symptoms have improved, denies any acute complaints at this time I've advised the patient to abstain from certain foods that could exacerbate his symptoms such as alcohol, caffeine, carbonated drinks, chocolate, etc. We will continue to monitor the patient's progress at this time Appreciate surgical input. Type 1 diabetes mellitus The patient does follow with endocrinology in [place]. He uses an insulin pump at baseline, however hes had episodes of hypoglycemia here when his insulin pump was restarted. The patient has been switched over to Levemir and an insulin sliding scale here. We will discharge the patient on subcutaneous insulin and advised him to follow- up with his artificial limb fitter for further evaluation of his insulin pump. Diabetic medications and supplies have already been sent to his pharmacy. Anxiety, depression, stable Continue Celexa DVT prophylaxis Heparin subcutaneously Disposition-we will continue to monitor the patient's symptoms of orthostatic hypotension and follow-up with progress. Physical therapy on board for functional optimization. VS, I&O, 24H, Fishbone Vital Signs/I&O Vital Signs Date Time Temp Pulse Resp B/P (MAP) Pulse Ox O2 Delivery O2 Flow Rate FiO2 11/21/16 06:00 96.4 73 19 142/80 (100) 99 Room Air I&O- Last 24 Hours up to 6 AM 11/21/16 06:00 Intake Total 2280 ml Output Total 1975 ml Balance 305 ml Laboratory Data 24H LABS Laboratory Tests 2 11/20/16 16:50: Bedside Glucose (Misc Panel) 564*H 11/20/16 16:55: Bedside Glucose (Misc Panel) 543*H 11/20/16 17:06: Bedside Glucose Confirm (Misc) 551*H 11/20/16 20:17: Bedside Glucose (Misc Panel) 558*H 11/20/16 22:37: Bedside Glucose Confirm (Misc) 463*H 11/21/16 05:02: Anion Gap 9, Glomerular Filtration Rate > 60.0, Blood Urea Nitrogen 24#H, Creatinine 0.78, Sodium Level 136, Potassium Level 3.8, Chloride Level 103, Carbon Dioxide Level 24, Calcium Level 6.8L 11/21/16 11:33: Bedside Glucose (Misc Panel) 306H CBC/BMP Laboratory Tests 11/21/16 05:02 Red Blood Count 2.85 L, Mean Corpuscular Volume 88.9, Mean Corpuscular Hemoglobin 30.3, Mean Corpuscular Hemoglobin Concent 34.1, Red Cell Distribution Width 14.0, Calcium Level 6.8 L CONCETTA HAYNES MD Nov 21, 2016 12:13
[2016-11-21] MEDS: methylPREDNISolone INJ 40 MG/1 ML VIAL (J2920) IV SCH (13:29)
[2016-11-21 13:47] VITALS: BP_SYST 114; BP_SYST 125; BP_SYST 80; BP_DIAS 50; BP_DIAS 59; BP_DIAS 63
[2016-11-21 20:50] VITALS: BP_SYST 102; BP_SYST 176; BP_SYST 79; BP_DIAS 52; BP_DIAS 63; BP_DIAS 82
[2016-11-21] MEDS: LATANOPROST 0.005% OPHTH SOLN 2.5 ML OU SCH (21:18)
[2016-11-21] MEDS: traMADol 50 MG TAB PO PRN (23:54)
[2016-11-22] MEDS: methylPREDNISolone INJ 40 MG/1 ML VIAL (J2920) IV SCH ×2 (02:22→15:04)
[2016-11-22] MEDS: SODIUM CHLORIDE 0.9% INJ 10 ML SYR IV PRN ×2 (02:22→21:16)
[2016-11-22] MEDS: HEPARIN SOD (PORCINE) 5000 UNITS/ML VIAL SQ SCH ×3 (04:57→21:15)
[2016-11-22] MEDS: SUCRALFATE SUSP 1GM/10ML UD PO SCH ×4 (04:57→23:07)
[2016-11-22] MEDS: SODIUM CHLORIDE 0.9% INJ 10 ML SYR IV SCH ×2 (04:58→18:11)
[2016-11-22 05:20] VITALS: BP_SYST 132; BP_SYST 210; BP_DIAS 100; BP_DIAS 73
[2016-11-22 06:19] LABS: EOS % 0.2 % (0.0-3.0); LARGE UNSTAINED CELL # 0.1 K/mm3 (0.0-0.4); LARGE UNSTAINED CELL % 0.4 % (0.0-4.0); LYMPH # 0.7 K/mm3 (1.5-4.5); LYMPH % 5.3 % (24.0-44.0); MEAN CORPUSCULAR HEMOGLOBIN 30.8 pg (27.0-33.0); MEAN CORPUSCULAR HGB CONC 34.6 g/dl (32.0-36.5); MONO # 0.6 K/mm3 (0.0-0.8); MONO % 4.9 % (0.0-5.0); NEUTROPHILS # 10.6 K/mm3 (1.8-7.7); NEUTROPHILS % 89.1 % (36.0-66.0); PLATELET COUNT, AUTOMATED 305 k/mm3 (150-450); RED CELL DISTRIBUTION WIDTH 14.2 % (11.5-14.5); WHITE BLOOD COUNT 11.8 K/mm3 (4.0-10.0)
[2016-11-22 06:38] LABS: ANION GAP 7 MEQ/L (8-16); BLOOD UREA NITROGEN 19 MG/DL (7-18); CARBON DIOXIDE LEVEL 29 MEQ/L (21-32); CHLORIDE LEVEL 99 MEQ/L (98-107); CREATININE FOR GFR 0.74 MG/DL (0.70-1.30); GLOMERULAR FILTRATION RATE > 60.0 (>56); POTASSIUM SERUM 3.3 MEQ/L (3.5-5.1); SODIUM LEVEL 135 MEQ/L (136-145)
[2016-11-22 06:58] LABS: GLUCOSE, FASTING 38 MG/DL (70-105)
[2016-11-22 06:59] LABS: CALCIUM LEVEL 8.4 MG/DL (8.5-10.1)
[2016-11-22] MEDS: GI COCKTAIL 50ML BTL(HYOSCYAMINE/MAALOX/LIDOCAINE VISCOUS)(1:3:1) PO PRN ×3 (07:05→23:08)
[2016-11-22] MEDS: HumaLOG INSULIN (NovoLOG) PER UNIT SC SCH ×4 (07:30→21:14)
[2016-11-22] MEDS: ATORVASTATIN 20 MG TAB PO SCH (08:31)
[2016-11-22] MEDS: PANTOPRAZOLE 40MG INJ (PROTONIX) (C9113) IV SCH ×2 (08:31→21:15)
[2016-11-22] MEDS: MIDODRINE 5 MG TAB PO SCH ×3 (08:31→15:58)
[2016-11-22] MEDS: ASPIRIN 81 MG ENTERIC TAB PO SCH (08:32)
[2016-11-22] MEDS: CitaloPRAM (CeleXA) 20 MG TAB PO SCH (08:32)
[2016-11-22] MEDS: ANALGESIC BALM CRM 120 GM TOP SCH ×4 (08:33→21:16)
[2016-11-22] MEDS: FLUDROCORTISONE ACETATE 0.1 MG TAB PO SCH (08:34)
[2016-11-22] MEDS: COSOPT OCUMETER PLUS 10ML (DORZOLAMIDE/TIMOLOL) OU SCH ×2 (08:34→21:15)
[2016-11-22] MEDS: LEVEMIR (INSULIN DETEMIR) 1 UNITS/0.01ML SC SCH ×2 (09:00→21:15)
[2016-11-22] MEDS: NS 1,000 ML IV SCH ×2 (11:13→23:08)
[2016-11-22] MEDS: POTASSIUM CHLORIDE 10 MEQ SR TABLET PO ONE (11:14)
--- NOTE | 2016-11-22 12:51 | IPNPDOC ---
Subjective Date Seen The patient was seen on 11/22/16. Subjective Chief Complaint/HPI Patient seen and examined at the bedside this morning. The patient was noted to be hypoglycemic this morning, although he states he did not have any symptoms. He does note that he had dinner last night. He reports that episodes of hypoglycemia occur at times for him and he is unsure why, and notes that he has been told that he is "a very brittle diabetic." Denies any other acute complaints at this time. Objective Physical Examination General Exam: Positive: Alert, Cooperative, No Acute Distress ENT Exam: Positive: Atraumatic, Mucous membr. moist/pink Neck Exam: Negative: JVD Chest Exam: Positive: Clear to auscultation, Normal air movement Heart Exam: Positive: Rate Normal, Normal S1, Normal S2 Abdomen Exam: Positive: Soft, Negative: Tenderness Extremity Exam: Negative: Tenderness, Swelling Psych Exam: Positive: Oriented x 3 Assessment /Plan Plan/VTE VTE Prophylaxis Ordered?: Yes Plan Near Syncopal Episode likely 2/2 Orthostatic Hypotension IVF Hydration ordered 2D ECHO notable for Diastolic Dysfunction I do suspect that the patient may have underlying autonomic neuropathy from underlying Type 1 DM causing him to be orthostatic Midodrine has been titrated up to 10 mg TID The patient has also been started on Florinef Will continue checking orthostatic vitals Patient encouraged to sit in chair during the day PT on board for functional optimization Giant cell arteritis Follows with rheumatology as an outpatient The patient did apparently suffer a flare up of skull pain earlier in this admission, and he was given a stronger dose of steroid therapy. 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 Raphael revealed grade D Esophagitis with no bleeding noted in the lower third of the esophagus. There was also mild segmental inflammation characterized by congestion and erythema found in the cardia. Biopsy results of the distal esophagus suggestive of stromal tissue with abundant acute and chronic inflammation Stomach biopsy with no significant pathologic change, no Helicobacter organisms identified. The patient's esophagitis is possibly attributable to underlying monilial esophagitis as per surgery s/p completion of Diflucan therapy We will continue with Protonix twice a day, and Carafate. When necessary GI cocktail has also been ordered The patient states that his symptoms have improved, denies any acute complaints at this time I've advised the patient to abstain from certain foods that could exacerbate his symptoms such as alcohol, caffeine, carbonated drinks, chocolate, etc. We will continue to monitor the patient's progress at this time Appreciate surgical input. Type 1 diabetes mellitus The patient does follow with endocrinology in [place]. He uses an insulin pump at baseline, however hes had episodes of hypoglycemia here when his insulin pump was restarted. The patient has been switched over to Levemir and an insulin sliding scale here. We will discharge the patient on subcutaneous insulin and advised him to follow- up with his blend technician for further evaluation of his insulin pump. Diabetic medications and supplies have already been sent to his pharmacy. Anxiety, depression, stable Continue Celexa DVT prophylaxis Heparin subcutaneously Disposition-we will continue to monitor the patient's symptoms of orthostatic hypotension and follow-up with progress. Physical therapy on board for functional optimization. VS, [facility]&O[facility]/I[facility]O Vital Signs Date Time Temp Pulse Resp B/P (MAP) Pulse Ox O2 Delivery O2 Flow Rate FiO2 11/22/16 05:20 72 210/100 (136) 73 132/73 (92) 11/22/16 05:20 97.7 19 99 Room Air I&O- Last 24 Hours up to 6 AM 11/22/16 05:59 Intake Total 2120 ml Output Total 3750 ml Balance -1630 ml Laboratory Data 24H LABS Laboratory Tests 2 11/21/16 16:50: Bedside Glucose (Misc Panel) 298H 11/21/16 20:10: Bedside Glucose (Misc Panel) 196H 11/22/16 06:01: White Blood Count 11.8H, Red Blood Count 3.65L, Hemoglobin 11.2#L, Hematocrit 32.5L, Mean Corpuscular Volume 89.0, Mean Corpuscular Hemoglobin 30.8, Mean Corpuscular Hemoglobin Concent 34.6, Red Cell Distribution Width 14.2, Platelet Count 305, Neutrophils (%) (Auto) 89.1H, Lymphocytes (%) (Auto) 5.3L, Monocytes (%) (Auto) 4.9, Eosinophils (%) (Auto) 0.2, Basophils (%) (Auto) 0.0, Neutrophils # (Auto) 10.6H, Lymphocytes # (Auto) 0.7L, Monocytes # (Auto) 0.6, Eosinophils # (Auto) 0.0, Basophils # (Auto) 0.0, Large Unclassified Cells % 0.4 , Large Unclassified Cells # 0.1, Anion Gap 7L, Glomerular Filtration Rate > 60.0, Blood Urea Nitrogen 19H, Creatinine 0.74, Sodium Level 135L, Potassium Level 3.3L, Chloride Level 99, Carbon Dioxide Level 29, Calcium Level 8.4#L, C- Reactive Protein, Quantitative 2.31H 11/22/16 07:03: Bedside Glucose (Misc Panel) 67L 11/22/16 07:11: Bedside Glucose (Misc Panel) 83 11/22/16 11:41: Bedside Glucose (Misc Panel) 395H CBC/BMP Laboratory Tests 11/22/16 06:01 Red Blood Count 3.65 L, Mean Corpuscular Volume 89.0, Mean Corpuscular Hemoglobin 30.8, Mean Corpuscular Hemoglobin Concent 34.6, Red Cell Distribution Width 14.2, Neutrophils (%) (Auto) 89.1 H, Lymphocytes (%) (Auto) 5.3 L, Monocytes (%) (Auto) 4.9, Eosinophils (%) (Auto) 0.2, Basophils (%) (Auto ) 0.0, Neutrophils # (Auto) 10.6 H, Lymphocytes # (Auto) 0.7 L, Monocytes # ( Auto) 0.6, Eosinophils # (Auto) 0.0, Basophils # (Auto) 0.0, Calcium Level 8.4 # L CONCETTA HAYNES MD Nov 22, 2016 12:51
[2016-11-22 15:00] VITALS: BP_SYST 116; BP_SYST 190; BP_SYST 86; BP_DIAS 51; BP_DIAS 70; BP_DIAS 96
[2016-11-22] MEDS ORDERED: NS 1,000 ML IV ONE (18:00)
[2016-11-22] MEDS: LATANOPROST 0.005% OPHTH SOLN 2.5 ML OU SCH (21:15)
[2016-11-22 22:00] VITALS: BP 164/85
[2016-11-22 22:12] VITALS: BP_SYST 113; BP_SYST 149; BP_SYST 87; BP_DIAS 54; BP_DIAS 56; BP_DIAS 88
[2016-11-22] MEDS: traMADol 50 MG TAB PO PRN (23:08)
[2016-11-23] MEDS: SODIUM CHLORIDE 0.9% INJ 10 ML SYR IV PRN (01:51)
[2016-11-23] MEDS: methylPREDNISolone INJ 40 MG/1 ML VIAL (J2920) IV SCH ×2 (01:51→14:14)
[2016-11-23] MEDS: SUCRALFATE SUSP 1GM/10ML UD PO SCH ×3 (05:06→18:14)
[2016-11-23] MEDS: HEPARIN SOD (PORCINE) 5000 UNITS/ML VIAL SQ SCH ×3 (05:06→21:30)
[2016-11-23] MEDS: SODIUM CHLORIDE 0.9% INJ 10 ML SYR IV SCH ×2 (05:07→18:15)
[2016-11-23] MEDS: NS 1,000 ML IV SCH ×4 (05:18→18:57)
[2016-11-23 05:49] LABS: BASO % 0.1 % (0.0-1.0); EOS % 0.1 % (0.0-3.0); LARGE UNSTAINED CELL % 0.3 % (0.0-4.0); LYMPH # 0.4 K/mm3 (1.5-4.5); LYMPH % 4.2 % (24.0-44.0); MEAN CORPUSCULAR HEMOGLOBIN 30.3 pg (27.0-33.0); MEAN CORPUSCULAR HGB CONC 34.7 g/dl (32.0-36.5); MEAN CORPUSCULAR VOLUME 87.5 fl (80.0-96.0); MONO # 0.4 K/mm3 (0.0-0.8); MONO % 4.2 % (0.0-5.0); PLATELET COUNT, AUTOMATED 236 k/mm3 (150-450); RED CELL DISTRIBUTION WIDTH 13.9 % (11.5-14.5); WHITE BLOOD COUNT 8.7 K/mm3 (4.0-10.0)
[2016-11-23 05:49] LABS: ANION GAP 6 MEQ/L (8-16); BLOOD UREA NITROGEN 13 MG/DL (7-18); CALCIUM LEVEL 7.9 MG/DL (8.5-10.1); CARBON DIOXIDE LEVEL 29 MEQ/L (21-32); CHLORIDE LEVEL 102 MEQ/L (98-107); CREATININE FOR GFR 0.64 MG/DL (0.70-1.30); GLOMERULAR FILTRATION RATE > 60.0 (>56); GLUCOSE, FASTING 152 MG/DL (70-105); POTASSIUM SERUM 3.7 MEQ/L (3.5-5.1); SODIUM LEVEL 137 MEQ/L (136-145)
[2016-11-23 05:54] LABS: ALBUMIN 2.2 GM/DL (3.2-5.2)
[2016-11-23 06:31] VITALS: BP_SYST 122; BP_SYST 160; BP_SYST 88; BP_DIAS 60; BP_DIAS 76; BP_DIAS 84
[2016-11-23] MEDS: GI COCKTAIL 50ML BTL(HYOSCYAMINE/MAALOX/LIDOCAINE VISCOUS)(1:3:1) PO PRN ×2 (07:58→18:14)
[2016-11-23] MEDS: HumaLOG INSULIN (NovoLOG) PER UNIT SC SCH ×4 (07:59→21:00)
[2016-11-23] MEDS: ASPIRIN 81 MG ENTERIC TAB PO SCH (08:00)
[2016-11-23] MEDS: FLUDROCORTISONE ACETATE 0.1 MG TAB PO SCH (08:00)
[2016-11-23] MEDS: MIDODRINE 5 MG TAB PO SCH ×2 (08:00→12:22)
[2016-11-23] MEDS: ATORVASTATIN 20 MG TAB PO SCH (08:00)
[2016-11-23] MEDS: CitaloPRAM (CeleXA) 20 MG TAB PO SCH (08:00)
[2016-11-23] MEDS: PANTOPRAZOLE 40MG INJ (PROTONIX) (C9113) IV SCH ×2 (08:01→21:29)
[2016-11-23] MEDS: LEVEMIR (INSULIN DETEMIR) 1 UNITS/0.01ML SC SCH ×2 (08:01→21:33)
[2016-11-23] MEDS: ANALGESIC BALM CRM 120 GM TOP SCH ×4 (08:02→21:30)
[2016-11-23] MEDS: COSOPT OCUMETER PLUS 10ML (DORZOLAMIDE/TIMOLOL) OU SCH ×2 (08:03→21:30)
[2016-11-23 08:53] LABS: PHOSPHORUS LEVEL 1.3 MG/DL (2.5-4.9)
[2016-11-23] MEDS ORDERED: SODIUM CHLORIDE 0.9% 1000 ML IV ONE (10:00)
--- NOTE | 2016-11-23 10:01 | IPNPDOC ---
Subjective Date Seen The patient was seen on 11/23/16. Subjective Chief Complaint/HPI Patient seen and examined at the bedside this morning. States that he is feeling much better and notes that he was able to stand up this morning without any symptoms of lightheadedness/dizziness. However, the patient was still noted to be orthostatic. He denies any acute complaints at this time, and notes that he is eager to work with physical therapy as he is feeling, "stronger today than at any other time during hospitalization." Objective Physical Examination General Exam: Positive: Alert, Cooperative, No Acute Distress ENT Exam: Positive: Atraumatic, Mucous membr. moist/pink Neck Exam: Negative: JVD Chest Exam: Positive: Clear to auscultation, Normal air movement Heart Exam: Positive: Rate Normal, Normal S1, Normal S2 Abdomen Exam: Positive: Soft, Negative: Tenderness Extremity Exam: Negative: Tenderness, Swelling Psych Exam: Positive: Oriented x 3 Assessment /Plan Plan/VTE VTE Prophylaxis Ordered?: Yes Plan Near Syncopal Episode likely 2/2 Orthostatic Hypotension IVF Hydration ordered 2D ECHO notable for Diastolic Dysfunction I do suspect that the patient may have underlying autonomic neuropathy from underlying Type 1 DM causing him to be orthostatic Midodrine has been titrated up to 10 mg TID The patient has also been started on Florinef Will continue checking orthostatic vitals Patient encouraged to sit in chair during the day PT on board for functional optimization Giant cell arteritis Follows with rheumatology as an outpatient The patient did apparently suffer a flare up of skull pain earlier in this admission, and he was given a stronger dose of steroid therapy. 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 Raphael revealed grade D Esophagitis with no bleeding noted in the lower third of the esophagus. There was also mild segmental inflammation characterized by congestion and erythema found in the cardia. Biopsy results of the distal esophagus suggestive of stromal tissue with abundant acute and chronic inflammation Stomach biopsy with no significant pathologic change, no Helicobacter organisms identified. The patient's esophagitis is possibly attributable to underlying monilial esophagitis as per surgery s/p completion of Diflucan therapy We will continue with Protonix twice a day, and Carafate. When necessary GI cocktail has also been ordered The patient states that his symptoms have improved, denies any acute complaints at this time I've advised the patient to abstain from certain foods that could exacerbate his symptoms such as alcohol, caffeine, carbonated drinks, chocolate, etc. We will continue to monitor the patient's progress at this time Appreciate surgical input. Type 1 diabetes mellitus The patient does follow with endocrinology in [place]. He uses an insulin pump at baseline, however he has had episodes of hypoglycemia here when his insulin pump was restarted. The patient has been switched over to Levemir and an insulin sliding scale here. 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 Diabetic medications and supplies have already been sent to his pharmacy. Anxiety, depression, stable Continue Celexa DVT prophylaxis Heparin subcutaneously Disposition-we will continue to monitor the patient's symptoms of orthostatic hypotension and follow-up with progress. Physical therapy on board for functional optimization. VS, I&O, 24H, Fishbone Vital Signs/I&O Vital Signs Date Time Temp Pulse Resp B/P (MAP) Pulse Ox O2 Delivery O2 Flow Rate FiO2 11/23/16 06:31 76 160/84 (109) 81 122/76 (91) 91 88/60 (69) 11/23/16 06:00 98.0 18 100 Room Air I&O- Last 24 Hours up to 6 AM 11/23/16 05:59 Intake Total 5270 ml Output Total 2250 ml Balance 3020 ml Laboratory Data 24H LABS Laboratory Tests 2 11/22/16 11:41: Bedside Glucose (Misc Panel) 395H 11/22/16 17:17: Bedside Glucose (Misc Panel) 297H 11/22/16 20:49: Bedside Glucose (Misc Panel) 308H 11/23/16 05:12: White Blood Count 8.7, Red Blood Count 3.17L, Hemoglobin 9.6L, Hematocrit 27.7L , Mean Corpuscular Volume 87.5, Mean Corpuscular Hemoglobin 30.3, Mean Corpuscular Hemoglobin Concent 34.7, Red Cell Distribution Width 13.9, Platelet Count 236, Neutrophils (%) (Auto) 91.0H, Lymphocytes (%) (Auto) 4.2L, Monocytes (%) (Auto) 4.2, Eosinophils (%) (Auto) 0.1, Basophils (%) (Auto) 0.1, Neutrophils # (Auto) 8.0H, Lymphocytes # (Auto) 0.4L, Monocytes # (Auto) 0.4, Eosinophils # (Auto) 0.0, Basophils # (Auto) 0.0, Large Unclassified Cells % 0.3 , Large Unclassified Cells # 0.0, C-Reactive Protein, Quantitative 1.27H, Albumin 2.2L 11/23/16 05:13: Anion Gap 6L, Glomerular Filtration Rate > 60.0, Blood Urea Nitrogen 13, Creatinine 0.64L, Sodium Level 137, Potassium Level 3.7, Chloride Level 102, Carbon Dioxide Level 29, Calcium Level 7.9L, Phosphorus Level 1.3L CBC/BMP Laboratory Tests 11/23/16 05:12 Red Blood Count 3.17 L, Mean Corpuscular Volume 87.5, Mean Corpuscular Hemoglobin 30.3, Mean Corpuscular Hemoglobin Concent 34.7, Red Cell Distribution Width 13.9, Neutrophils (%) (Auto) 91.0 H, Lymphocytes (%) (Auto) 4.2 L, Monocytes (%) (Auto) 4.2, Eosinophils (%) (Auto) 0.1, Basophils (%) (Auto ) 0.1, Neutrophils # (Auto) 8.0 H, Lymphocytes # (Auto) 0.4 L, Monocytes # (Auto ) 0.4, Eosinophils # (Auto) 0.0, Basophils # (Auto) 0.0 11/23/16 05:13 Calcium Level 7.9 L CONCETTA HAYNES MD Nov 23, 2016 10:00
[2016-11-23 10:02] LABS: MAGNESIUM LEVEL 2.1 MG/DL (1.8-2.4)
[2016-11-23] MEDS: K-PHOS NEUTRAL 250MG TABLET (SOD.PHOSPHATE/POT.PHOSPHATE) PO SCH ×3 (10:16→21:29)
[2016-11-23 14:00] VITALS: BP_SYST 106; BP_SYST 121; BP_SYST 148; BP_SYST 229; BP_DIAS 120; BP_DIAS 62; BP_DIAS 77; BP_DIAS 85
[2016-11-23] MEDS: MORPHINE 2 MG/ML 1ML SYRINGE IV PRN (16:51)
[2016-11-23] MEDS: LATANOPROST 0.005% OPHTH SOLN 2.5 ML OU SCH (21:30)
[2016-11-23] MEDS: **hydrALAZINE HCL** 25 MG TAB PO SCH (21:39)
[2016-11-23 22:00] VITALS: BP_SYST 135; BP_SYST 160; BP_SYST 95; BP_DIAS 58; BP_DIAS 80; BP_DIAS 90
[2016-11-24] MEDS: SUCRALFATE SUSP 1GM/10ML UD PO SCH ×4 (00:33→18:35)
[2016-11-24] MEDS: methylPREDNISolone INJ 40 MG/1 ML VIAL (J2920) IV SCH ×2 (02:18→14:28)
[2016-11-24] MEDS: NS 1,000 ML IV SCH ×2 (02:18→19:49)
[2016-11-24] MEDS: **hydrALAZINE HCL** 25 MG TAB PO SCH ×3 (05:12→21:54)
[2016-11-24] MEDS: SODIUM CHLORIDE 0.9% INJ 10 ML SYR IV SCH ×2 (05:13→18:35)
[2016-11-24 05:37] LABS: BASO % 0.1 % (0.0-1.0); EOS % 0.3 % (0.0-3.0); LARGE UNSTAINED CELL % 0.3 % (0.0-4.0); LYMPH # 0.6 K/mm3 (1.5-4.5); LYMPH % 6.3 % (24.0-44.0); MEAN CORPUSCULAR HEMOGLOBIN 30.5 pg (27.0-33.0); MEAN CORPUSCULAR HGB CONC 35.4 g/dl (32.0-36.5); MEAN CORPUSCULAR VOLUME 86.2 fl (80.0-96.0); MONO # 0.4 K/mm3 (0.0-0.8); MONO % 4.1 % (0.0-5.0); NEUTROPHILS # 8.2 K/mm3 (1.8-7.7); NEUTROPHILS % 88.9 % (36.0-66.0); PLATELET COUNT, AUTOMATED 217 k/mm3 (150-450); RED CELL DISTRIBUTION WIDTH 14.1 % (11.5-14.5); WHITE BLOOD COUNT 9.2 K/mm3 (4.0-10.0)
[2016-11-24 05:52] LABS: ANION GAP 8 MEQ/L (8-16); BLOOD UREA NITROGEN 9 MG/DL (7-18); CALCIUM LEVEL 7.7 MG/DL (8.5-10.1); CARBON DIOXIDE LEVEL 29 MEQ/L (21-32); CHLORIDE LEVEL 102 MEQ/L (98-107); CREATININE FOR GFR 0.59 MG/DL (0.70-1.30); GLOMERULAR FILTRATION RATE > 60.0 (>56); GLUCOSE, FASTING 125 MG/DL (70-105); POTASSIUM SERUM 3.1 MEQ/L (3.5-5.1); SODIUM LEVEL 139 MEQ/L (136-145)
[2016-11-24] MEDS: HEPARIN SOD (PORCINE) 5000 UNITS/ML VIAL SQ SCH ×3 (06:00→21:55)
[2016-11-24 07:03] VITALS: BP_SYST 109; BP_SYST 158; BP_SYST 95; BP_DIAS 62; BP_DIAS 80; BP_DIAS 86
[2016-11-24] MEDS ORDERED: POTASSIUM CHLORIDE 10 MEQ SR TABLET PO ONE (07:30)
[2016-11-24] MEDS: HumaLOG INSULIN (NovoLOG) PER UNIT SC SCH ×4 (07:30→20:25)
[2016-11-24] MEDS ORDERED: SODIUM PHOSPHATE INJ 30 MMOL in D5W 500 ML IV ONE (09:00)
[2016-11-24] MEDS: CitaloPRAM (CeleXA) 20 MG TAB PO SCH (09:36)
[2016-11-24] MEDS: GI COCKTAIL 50ML BTL(HYOSCYAMINE/MAALOX/LIDOCAINE VISCOUS)(1:3:1) PO PRN ×3 (09:37→16:32)
[2016-11-24] MEDS: K-PHOS NEUTRAL 250MG TABLET (SOD.PHOSPHATE/POT.PHOSPHATE) PO SCH ×3 (09:37→20:23)
[2016-11-24] MEDS: ASPIRIN 81 MG ENTERIC TAB PO SCH (09:37)
[2016-11-24] MEDS: ATORVASTATIN 20 MG TAB PO SCH (09:38)
[2016-11-24] MEDS: FLUDROCORTISONE ACETATE 0.1 MG TAB PO SCH (09:38)
[2016-11-24] MEDS: LEVEMIR (INSULIN DETEMIR) 1 UNITS/0.01ML SC SCH ×2 (09:39→20:26)
[2016-11-24] MEDS: PANTOPRAZOLE 40MG INJ (PROTONIX) (C9113) IV SCH ×2 (09:39→20:24)
[2016-11-24] MEDS: COSOPT OCUMETER PLUS 10ML (DORZOLAMIDE/TIMOLOL) OU SCH ×2 (09:39→20:24)
[2016-11-24] MEDS: ANALGESIC BALM CRM 120 GM TOP SCH ×4 (09:40→20:27)
--- NOTE | 2016-11-24 12:46 | IPNPDOC ---
Subjective Date Seen The patient was seen on 11/24/16. Subjective Chief Complaint/HPI Patient seen and examined at the bedside this morning. States that he is feeling well, and reports that he has eager to work with physical therapy once again as he is improving. Objective Physical Examination General Exam: Positive: Alert, Cooperative, No Acute Distress ENT Exam: Positive: Atraumatic, Mucous membr. moist/pink Neck Exam: Negative: JVD Chest Exam: Positive: Clear to auscultation, Normal air movement Heart Exam: Positive: Rate Normal, Normal S1, Normal S2 Abdomen Exam: Positive: Soft Extremity Exam: Negative: Tenderness, Swelling Psych Exam: Positive: Oriented x 3 Assessment /Plan Plan/VTE VTE Prophylaxis Ordered?: Yes Plan Near Syncopal Episode likely 2/2 Orthostatic Hypotension IVF Hydration ordered 2D ECHO notable for Diastolic Dysfunction I do suspect that the patient may have underlying autonomic neuropathy from underlying Type 1 DM causing him to be orthostatic The patient has been on Florinef Will continue checking orthostatic vitals Patient encouraged to sit in chair during the day PT on board for functional optimization Giant cell arteritis Follows with rheumatology as an outpatient The patient did apparently suffer a flare up of skull pain earlier in this admission, and he was given a stronger dose of steroid therapy. 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 Raphael revealed grade D Esophagitis with no bleeding noted in the lower third of the esophagus. There was also mild segmental inflammation characterized by congestion and erythema found in the cardia. Biopsy results of the distal esophagus suggestive of stromal tissue with abundant acute and chronic inflammation Stomach biopsy with no significant pathologic change, no Helicobacter organisms identified. The patient's esophagitis is possibly attributable to underlying monilial esophagitis as per surgery s/p completion of Diflucan therapy We will continue with Protonix twice a day, and Carafate. When necessary GI cocktail has also been ordered The patient states that his symptoms have improved, denies any acute complaints at this time I've advised the patient to abstain from certain foods that could exacerbate his symptoms such as alcohol, caffeine, carbonated drinks, chocolate, etc. We will continue to monitor the patient's progress at this time Appreciate surgical input. Type 1 diabetes mellitus The patient does follow with endocrinology in [place]. He uses an insulin pump at baseline, however he has had episodes of hypoglycemia here when his insulin pump was restarted. The patient has been switched over to Levemir and an insulin sliding scale here. We will discharge the patient on subcutaneous insulin and advised him to follow- up with his director loan for further evaluation of his insulin pump. Diabetic medications and supplies have already been sent to his pharmacy. Anxiety, depression, stable Continue Celexa DVT prophylaxis Heparin subcutaneously Disposition-we will continue to monitor the patient's symptoms of orthostatic hypotension and follow-up with progress. Physical therapy on board for functional optimization. VS, I&O, 24H, Fishbone Vital Signs/I&O Vital Signs Date Time Temp Pulse Resp B/P (MAP) Pulse Ox O2 Delivery O2 Flow Rate FiO2 11/24/16 07:03 72 158/86 (110) 100 109/80 (90) 95/62 (73) 11/23/16 22:00 98.9 20 99 Room Air I&O- Last 24 Hours up to 6 AM 11/24/16 05:59 Intake Total 8600 ml Output Total 5175 ml Balance 3425 ml Laboratory Data 24H LABS Laboratory Tests 2 11/23/16 17:19: Bedside Glucose (Misc Panel) 183H 11/23/16 21:00: Bedside Glucose (Misc Panel) 100 11/24/16 05:20: White Blood Count 9.2, Red Blood Count 3.24L, Hemoglobin 9.9L, Hematocrit 28.0L , Mean Corpuscular Volume 86.2, Mean Corpuscular Hemoglobin 30.5, Mean Corpuscular Hemoglobin Concent 35.4, Red Cell Distribution Width 14.1, Platelet Count 217, Neutrophils (%) (Auto) 88.9H, Lymphocytes (%) (Auto) 6.3L, Monocytes (%) (Auto) 4.1, Eosinophils (%) (Auto) 0.3, Basophils (%) (Auto) 0.1, Neutrophils # (Auto) 8.2H, Lymphocytes # (Auto) 0.6L, Monocytes # (Auto) 0.4, Eosinophils # (Auto) 0.0, Basophils # (Auto) 0.0, Large Unclassified Cells % 0.3 , Large Unclassified Cells # 0.0, Anion Gap 8, Glomerular Filtration Rate > 60.0 , Blood Urea Nitrogen 9, Creatinine 0.59L, Sodium Level 139, Potassium Level 3.1L, Chloride Level 102, Carbon Dioxide Level 29, Calcium Level 7.7L, Phosphorus Level 1.4L 11/24/16 07:41: Bedside Glucose (Misc Panel) 173H 11/24/16 11:27: Bedside Glucose (Misc Panel) 357H CBC/BMP Laboratory Tests 11/24/16 05:20 Red Blood Count 3.24 L, Mean Corpuscular Volume 86.2, Mean Corpuscular Hemoglobin 30.5, Mean Corpuscular Hemoglobin Concent 35.4, Red Cell Distribution Width 14.1, Neutrophils (%) (Auto) 88.9 H, Lymphocytes (%) (Auto) 6.3 L, Monocytes (%) (Auto) 4.1, Eosinophils (%) (Auto) 0.3, Basophils (%) (Auto ) 0.1, Neutrophils # (Auto) 8.2 H, Lymphocytes # (Auto) 0.6 L, Monocytes # (Auto ) 0.4, Eosinophils # (Auto) 0.0, Basophils # (Auto) 0.0, Calcium Level 7.7 L CONCETTA HAYNES MD Nov 24, 2016 12:46
[2016-11-24 14:00] VITALS: BP_SYST 118; BP_SYST 128; BP_SYST 132; BP_SYST 94; BP_DIAS 60; BP_DIAS 72; BP_DIAS 78; BP_DIAS 82
[2016-11-24] MEDS: traMADol 50 MG TAB PO PRN (14:31)
[2016-11-24] MEDS: MORPHINE 2 MG/ML 1ML SYRINGE IV PRN ×2 (16:26→22:50)
[2016-11-24] MEDS: LATANOPROST 0.005% OPHTH SOLN 2.5 ML OU SCH (20:24)
[2016-11-24 22:00] VITALS: BP_SYST 102; BP_SYST 122; BP_SYST 126; BP_SYST 130; BP_DIAS 52; BP_DIAS 66; BP_DIAS 68; BP_DIAS 74
[2016-11-25] MEDS: SUCRALFATE SUSP 1GM/10ML UD PO SCH ×4 (00:38→18:41)
[2016-11-25] MEDS: methylPREDNISolone INJ 40 MG/1 ML VIAL (J2920) IV SCH (02:11)
[2016-11-25] MEDS: NS 1,000 ML IV SCH ×3 (02:13→11:39)
[2016-11-25] MEDS: HEPARIN SOD (PORCINE) 5000 UNITS/ML VIAL SQ SCH ×3 (05:18→21:40)
[2016-11-25] MEDS: **hydrALAZINE HCL** 25 MG TAB PO SCH ×3 (05:18→21:39)
[2016-11-25] MEDS: SODIUM CHLORIDE 0.9% INJ 10 ML SYR IV SCH ×2 (05:19→18:39)
[2016-11-25 05:37] LABS: BASO % 0.1 % (0.0-1.0); EOS % 0.3 % (0.0-3.0); LARGE UNSTAINED CELL % 0.3 % (0.0-4.0); LYMPH # 0.6 K/mm3 (1.5-4.5); LYMPH % 5.8 % (24.0-44.0); MEAN CORPUSCULAR HEMOGLOBIN 30.2 pg (27.0-33.0); MEAN CORPUSCULAR HGB CONC 34.7 g/dl (32.0-36.5); MEAN CORPUSCULAR VOLUME 87.2 fl (80.0-96.0); MONO # 0.4 K/mm3 (0.0-0.8); NEUTROPHILS # 9.4 K/mm3 (1.8-7.7); NEUTROPHILS % 89.5 % (36.0-66.0); PLATELET COUNT, AUTOMATED 213 k/mm3 (150-450); RED CELL DISTRIBUTION WIDTH 14.3 % (11.5-14.5); WHITE BLOOD COUNT 10.5 K/mm3 (4.0-10.0)
[2016-11-25 05:55] LABS: ANION GAP 6 MEQ/L (8-16); CALCIUM LEVEL 7.9 MG/DL (8.5-10.1); CARBON DIOXIDE LEVEL 30 MEQ/L (21-32); CHLORIDE LEVEL 101 MEQ/L (98-107); CREATININE FOR GFR 0.55 MG/DL (0.70-1.30); GLOMERULAR FILTRATION RATE > 60.0 (>56); GLUCOSE, FASTING 49 MG/DL (70-105); SODIUM LEVEL 137 MEQ/L (136-145)
[2016-11-25 06:00] VITALS: BP_SYST 132; BP_SYST 140; BP_SYST 152; BP_SYST 178; BP_DIAS 66; BP_DIAS 68; BP_DIAS 86; BP_DIAS 88
[2016-11-25 06:22] LABS: BLOOD UREA NITROGEN 15 MG/DL (7-18)
[2016-11-25 08:23] LABS: PHOSPHORUS LEVEL 2.2 MG/DL (2.5-4.9)
[2016-11-25] MEDS ORDERED: predniSONE 50 MG TAB PO SCH (09:00)
[2016-11-25] MEDS ORDERED: POTASSIUM CHLORIDE 10 MEQ SR TABLET PO SCH (09:00)
[2016-11-25] MEDS ORDERED: NS 1,000 ML IV ONE (09:15)
[2016-11-25] MEDS: HumaLOG INSULIN (NovoLOG) PER UNIT SC SCH ×4 (09:15→21:39)
[2016-11-25] MEDS: GI COCKTAIL 50ML BTL(HYOSCYAMINE/MAALOX/LIDOCAINE VISCOUS)(1:3:1) PO PRN (09:17)
[2016-11-25] MEDS: ASPIRIN 81 MG ENTERIC TAB PO SCH (09:18)
[2016-11-25] MEDS: ATORVASTATIN 20 MG TAB PO SCH (09:18)
[2016-11-25] MEDS: FLUDROCORTISONE ACETATE 0.1 MG TAB PO SCH (09:18)
[2016-11-25] MEDS: CitaloPRAM (CeleXA) 20 MG TAB PO SCH (09:18)
[2016-11-25] MEDS: COSOPT OCUMETER PLUS 10ML (DORZOLAMIDE/TIMOLOL) OU SCH ×2 (09:18→20:14)
[2016-11-25] MEDS: PANTOPRAZOLE 40MG INJ (PROTONIX) (C9113) IV SCH ×2 (09:19→20:12)
[2016-11-25] MEDS: ANALGESIC BALM CRM 120 GM TOP SCH ×4 (09:19→20:14)
[2016-11-25] MEDS ORDERED: LEVEMIR (INSULIN DETEMIR) 1 UNITS/0.01ML SC ONE (10:00)
[2016-11-25] MEDS: LEVEMIR (INSULIN DETEMIR) 1 UNITS/0.01ML SC SCH ×2 (10:02→20:13)
[2016-11-25] MEDS: POTASSIUM CHLORIDE 10% LIQ 20 MEQ/15 ML UDC PO SCH ×2 (10:19→20:12)
[2016-11-25] MEDS ORDERED: SODIUM PHOSPHATE INJ 30 MMOL in D5W 500 ML IV ONE (11:00)
[2016-11-25 14:00] VITALS: BP_SYST 130; BP_SYST 150; BP_SYST 86; BP_DIAS 54; BP_DIAS 70; BP_DIAS 80
--- NOTE | 2016-11-25 14:49 | IPNPDOC ---
Subjective Date Seen The patient was seen on 11/25/16. Subjective Chief Complaint/HPI Patient seen and examined at the bedside this morning. States that he was able to walk with assistance of physical therapy yesterday afternoon without any symptoms of lightheadedness/dizziness. Reports that he is excited to work with physical therapy today for further progression of his functional status. Objective Physical Examination General Exam: Positive: Alert, Cooperative, No Acute Distress ENT Exam: Positive: Atraumatic, Mucous membr. moist/pink Neck Exam: Negative: JVD Chest Exam: Positive: Clear to auscultation, Normal air movement Heart Exam: Positive: Rate Normal, Normal S1, Normal S2 Abdomen Exam: Positive: Soft, Negative: Tenderness Extremity Exam: Negative: Tenderness, Swelling Psych Exam: Positive: Oriented x 3 Assessment /Plan Plan/VTE VTE Prophylaxis Ordered?: Yes Plan Near Syncopal Episode likely 2/2 Orthostatic Hypotension IVF Hydration ordered 2D ECHO notable for Diastolic Dysfunction I do suspect that the patient may have underlying autonomic neuropathy from underlying Type 1 DM causing him to be orthostatic The patient has been on Florinef Will continue checking orthostatic vitals Patient encouraged to sit in chair during the day PT on board for functional optimization Giant cell arteritis Follows with rheumatology as an outpatient The patient did apparently suffer a flare up of skull pain earlier in this admission, and he was given a stronger dose of steroid therapy. His symptoms have improved Transitioned to PO Prednisone from IV Solu-medrol Esophagitis with Gastritis 2/2 Acute on Chronic Inflammation, with possible underlying Candidal Esophagitis EGD done on 11/03/[address] Raphael revealed grade D Esophagitis with no bleeding noted in the lower third of the esophagus. There was also mild segmental inflammation characterized by congestion and erythema found in the cardia. Biopsy results of the distal esophagus suggestive of stromal tissue with abundant acute and chronic inflammation Stomach biopsy with no significant pathologic change, no Helicobacter organisms identified. The patient's esophagitis is possibly attributable to underlying monilial esophagitis as per surgery s/p completion of Diflucan therapy We will continue with Protonix twice a day, and Carafate. When necessary GI cocktail has also been ordered The patient states that his symptoms have improved, denies any acute complaints at this time I've advised the patient to abstain from certain foods that could exacerbate his symptoms such as alcohol, caffeine, carbonated drinks, chocolate, etc. We will continue to monitor the patient's progress at this time Appreciate surgical input. Type 1 diabetes mellitus The patient does follow with endocrinology in [place]. He uses an insulin pump at baseline, however he has had episodes of hypoglycemia here when his insulin pump was restarted. The patient has been switched over to Levemir and an insulin sliding scale here. 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 Diabetic medications and supplies have already been sent to his pharmacy. Anxiety, depression, stable Continue Celexa DVT prophylaxis Heparin subcutaneously Disposition-we will continue to monitor the patient's symptoms of orthostatic hypotension and follow-up with progress. Physical therapy on board for functional optimization. VS, I&O, 24H, Fishbone Vital Signs/I&O Vital Signs Date Time Temp Pulse Resp B/P (MAP) Pulse Ox O2 Delivery O2 Flow Rate FiO2 11/25/16 14:00 150/80 11/25/16 09:15 Room Air 11/25/16 06:00 98.5 77 18 99 I&O- Last 24 Hours up to 6 AM 11/25/16 05:59 Intake Total 4110 ml Output Total 3740 ml Balance 370 ml Laboratory Data 24H LABS Laboratory Tests 2 11/24/16 16:24: Bedside Glucose (Misc Panel) 313H 11/24/16 20:17: Bedside Glucose (Misc Panel) 198H 11/24/16 20:22: Bedside Glucose (Misc Panel) 191H 11/25/16 05:20: White Blood Count 10.5H, Red Blood Count 3.19L, Hemoglobin 9.6L, Hematocrit 27.8L, Mean Corpuscular Volume 87.2, Mean Corpuscular Hemoglobin 30.2, Mean Corpuscular Hemoglobin Concent 34.7, Red Cell Distribution Width 14.3, Platelet Count 213, Neutrophils (%) (Auto) 89.5H, Lymphocytes (%) (Auto) 5.8L, Monocytes (%) (Auto) 4.0, Eosinophils (%) (Auto) 0.3, Basophils (%) (Auto) 0.1, Neutrophils # (Auto) 9.4H, Lymphocytes # (Auto) 0.6L, Monocytes # (Auto) 0.4, Eosinophils # (Auto) 0.0, Basophils # (Auto) 0.0, Large Unclassified Cells % 0.3 , Large Unclassified Cells # 0.0, Anion Gap 6L, Glomerular Filtration Rate > 60.0, Blood Urea Nitrogen 15#, Creatinine 0.55L, Sodium Level 137, Potassium Level 3.0L, Chloride Level 101, Carbon Dioxide Level 30, Calcium Level 7.9L, Phosphorus Level 2.2#L 11/25/16 06:48: Bedside Glucose (Misc Panel) 53L 11/25/16 06:56: Bedside Glucose (Misc Panel) 95 11/25/16 11:10: Bedside Glucose (Misc Panel) 213H CBC/BMP Laboratory Tests 11/25/16 05:20 Red Blood Count 3.19 L, Mean Corpuscular Volume 87.2, Mean Corpuscular Hemoglobin 30.2, Mean Corpuscular Hemoglobin Concent 34.7, Red Cell Distribution Width 14.3, Neutrophils (%) (Auto) 89.5 H, Lymphocytes (%) (Auto) 5.8 L, Monocytes (%) (Auto) 4.0, Eosinophils (%) (Auto) 0.3, Basophils (%) (Auto ) 0.1, Neutrophils # (Auto) 9.4 H, Lymphocytes # (Auto) 0.6 L, Monocytes # (Auto ) 0.4, Eosinophils # (Auto) 0.0, Basophils # (Auto) 0.0, Calcium Level 7.9 L CONCETTA HAYNES MD Nov 25, 2016 14:49
[2016-11-25] MEDS: MORPHINE 2 MG/ML 1ML SYRINGE IV PRN (15:53)
[2016-11-25] MEDS: LATANOPROST 0.005% OPHTH SOLN 2.5 ML OU SCH (20:14)
--- NOTE | 2016-11-25 21:50 | REPUSA ---
Clinical statement: Pain, swelling. Findings: Venous Doppler imaging of the upper extremity was performed. A PICC line is noted in the br achial vein. The internal jugular vein compresses normally and demonstrates normal color Doppler flow . Echogenic thrombus is seen extending from the right brachial vein, superiorly into the right axilla ry vein and into the subclavian vein. Normal augmentation is seen. Impression: Right upper extremity deep vein thrombosis as described.
[2016-11-25] MEDS: traMADol 50 MG TAB PO PRN (21:58)
[2016-11-25 22:00] VITALS: BP_SYST 112; BP_SYST 124; BP_SYST 156; BP_SYST 94; BP_DIAS 66; BP_DIAS 68; BP_DIAS 72; BP_DIAS 90
[2016-11-25] MEDS: ENOXAPARIN 100MG/1ML SYRINGE (J1650) SC SCH (22:52)
[2016-11-26] MEDS: SUCRALFATE SUSP 1GM/10ML UD PO SCH ×5 (00:53→23:45)
[2016-11-26] MEDS: NS 1,000 ML IV SCH ×2 (00:53→08:26)
[2016-11-26] MEDS: MORPHINE 2 MG/ML 1ML SYRINGE IV PRN (03:32)
[2016-11-26] MEDS: SODIUM CHLORIDE 0.9% INJ 10 ML SYR IV SCH ×2 (05:27→15:46)
[2016-11-26] MEDS: **hydrALAZINE HCL** 25 MG TAB PO SCH ×3 (05:28→21:39)
[2016-11-26 05:49] LABS: BASO % 0.3 % (0.0-1.0); EOS % 0.4 % (0.0-3.0); LARGE UNSTAINED CELL # 0.1 K/mm3 (0.0-0.4); LARGE UNSTAINED CELL % 0.5 % (0.0-4.0); LYMPH # 1.1 K/mm3 (1.5-4.5); LYMPH % 10.4 % (24.0-44.0); MEAN CORPUSCULAR HEMOGLOBIN 30.6 pg (27.0-33.0); MEAN CORPUSCULAR HGB CONC 34.8 g/dl (32.0-36.5); MEAN CORPUSCULAR VOLUME 87.9 fl (80.0-96.0); MONO # 0.3 K/mm3 (0.0-0.8); MONO % 3.1 % (0.0-5.0); NEUTROPHILS # 8.3 K/mm3 (1.8-7.7); NEUTROPHILS % 85.3 % (36.0-66.0); PLATELET COUNT, AUTOMATED 220 k/mm3 (150-450); RED CELL DISTRIBUTION WIDTH 14.5 % (11.5-14.5); WHITE BLOOD COUNT 9.7 K/mm3 (4.0-10.0)
[2016-11-26 06:00] VITALS: BP_SYST 128; BP_SYST 138; BP_SYST 166; BP_SYST 96; BP_DIAS 58; BP_DIAS 60; BP_DIAS 74; BP_DIAS 86
[2016-11-26 06:05] LABS: ANION GAP 7 MEQ/L (8-16); BLOOD UREA NITROGEN 11 MG/DL (7-18); CALCIUM LEVEL 6.8 MG/DL (8.5-10.1); CARBON DIOXIDE LEVEL 30 MEQ/L (21-32); CHLORIDE LEVEL 100 MEQ/L (98-107); CREATININE FOR GFR 0.58 MG/DL (0.70-1.30); GLOMERULAR FILTRATION RATE > 60.0 (>56); GLUCOSE, FASTING 89 MG/DL (70-105); POTASSIUM SERUM 3.3 MEQ/L (3.5-5.1); SODIUM LEVEL 137 MEQ/L (136-145)
[2016-11-26] MEDS ORDERED: POTASSIUM CHLORIDE 10 MEQ SR TABLET PO ONE (06:45)
[2016-11-26] MEDS: ONDANSETRON 4MG/2ML VIAL (J2405) IV PRN (06:59)
[2016-11-26] MEDS: HumaLOG INSULIN (NovoLOG) PER UNIT SC SCH ×4 (07:30→21:38)
[2016-11-26] MEDS: METOCLOPRAMIDE INJ 10MG/2ML VIAL (J2765) IV PRN (08:25)
[2016-11-26 08:26] LABS: MAGNESIUM LEVEL 1.8 MG/DL (1.8-2.4)
[2016-11-26] MEDS: methylPREDNISolone INJ 40 MG/1 ML VIAL (J2920) IV SCH ×2 (08:26→21:14)
[2016-11-26] MEDS: CALCIUM GLUCONATE 1,000 MG in D5W MINI-BAG PLUS 100 ML IV SCH ×2 (08:26→09:56)
[2016-11-26] MEDS ORDERED: MORPHINE 2 MG/ML 1ML SYRINGE IV PRN (09:30)
[2016-11-26] MEDS ORDERED: MORPHINE 4 MG/ML 1ML SYRINGE IV ONE (09:45)
[2016-11-26] MEDS: PANTOPRAZOLE 40MG INJ (PROTONIX) (C9113) IV SCH ×2 (09:56→21:16)
[2016-11-26] MEDS: LIDOCAINE 5% OINT 30 GM TOP PRN (09:57)
[2016-11-26] MEDS: ANALGESIC BALM CRM 120 GM TOP SCH ×4 (10:00→21:17)
[2016-11-26] MEDS ORDERED: SODIUM PHOSPHATE INJ 30 MMOL in D5W 500 ML IV ONE (10:00)
[2016-11-26] MEDS: COSOPT OCUMETER PLUS 10ML (DORZOLAMIDE/TIMOLOL) OU SCH ×2 (10:01→21:16)
[2016-11-26] MEDS: CitaloPRAM (CeleXA) 20 MG TAB PO SCH (11:28)
[2016-11-26] MEDS: ATORVASTATIN 20 MG TAB PO SCH (11:28)
[2016-11-26] MEDS: K-PHOS NEUTRAL 250MG TABLET (SOD.PHOSPHATE/POT.PHOSPHATE) PO SCH ×3 (11:28→21:15)
[2016-11-26] MEDS: FLUDROCORTISONE ACETATE 0.1 MG TAB PO SCH (11:28)
[2016-11-26] MEDS: ASPIRIN 81 MG ENTERIC TAB PO SCH (11:29)
--- NOTE | 2016-11-26 11:51 | IPNPDOC ---
Subjective Date Seen The patient was seen on 11/26/16. Subjective Chief Complaint/HPI Patient seen and examined at the bedside this morning. Patient was noted to have right upper extremity swelling overnight by the house staff. An ultrasound was ordered of the extremity which revealed a deep vein thrombosis extending from the right brachial vein, superiorly into the right axillary vein and into the subclavian vein. This morning, the patient denies any pain in the extremity , however he states that the pain in his neck is flaring up again this morning. Objective Physical Examination General Exam: Positive: Alert, Cooperative ENT Exam: Positive: Atraumatic, Mucous membr. moist/pink Neck Exam: Negative: JVD Chest Exam: Positive: Clear to auscultation, Normal air movement Heart Exam: Positive: Rate Normal, Normal S1, Normal S2 Abdomen Exam: Positive: Soft, Negative: Tenderness Extremity Exam: Positive: Other (1+ edema noted in the RUE) Psych Exam: Positive: Oriented x 3 Assessment /Plan Plan/VTE VTE Prophylaxis Ordered?: Yes Plan Right Upper Extremity DVT 2/2 PICC Line U/S of the RUE notable for thrombus extending from the right brachial vein, superiorly into the right axillary vein and into the subclavian vein. Patient's extremity in no pain this AM Line still functional--however we will hold off on using it at this time Lovenox SC 1.5mg/kg daily ordered Near Syncopal Episode likely 2/2 Orthostatic Hypotension s/p IVF Hydration 2D ECHO notable for Diastolic Dysfunction I do suspect that the patient may have underlying autonomic neuropathy from underlying Type 1 DM causing him to be orthostatic The patient has been on Florinef The patient's orthostatic vitals have been having improving with IVF Hydration-- Will continue checking orthostatic vitals Patient encouraged to sit in chair during the day PT on board for functional optimization Giant cell arteritis Follows with rheumatology as an outpatient Patient complaining once again of flare up of neck pain Will restart IV Solumedrol at this time Esophagitis with Gastritis 2/2 Acute on Chronic Inflammation, with possible underlying Candidal Esophagitis EGD done on 11/03/[address] Raphael revealed grade D Esophagitis with no bleeding noted in the lower third of the esophagus. There was also mild segmental inflammation characterized by congestion and erythema found in the cardia. Biopsy results of the distal esophagus suggestive of stromal tissue with abundant acute and chronic inflammation Stomach biopsy with no significant pathologic change, no Helicobacter organisms identified. The patient's esophagitis is possibly attributable to underlying monilial esophagitis as per surgery s/p completion of Diflucan therapy We will continue with Protonix twice a day, and Carafate. When necessary GI cocktail has also been ordered The patient states that his symptoms have improved, denies any acute complaints at this time I've advised the patient to abstain from certain foods that could exacerbate his symptoms such as alcohol, caffeine, carbonated drinks, chocolate, etc. We will continue to monitor the patient's progress at this time Appreciate surgical input. Type 1 diabetes mellitus The patient does follow with endocrinology in [place]. He uses an insulin pump at baseline, however he has had episodes of hypoglycemia here when his insulin pump was restarted. The patient has been switched over to Levemir and an insulin sliding scale here. We will discharge the patient on subcutaneous insulin and advised him to follow- up with his shutdown coordinator for further evaluation of his insulin pump. Diabetic medications and supplies have already been sent to his pharmacy. Anxiety, depression, stable Continue Celexa DVT prophylaxis Heparin subcutaneously Disposition-we will continue to monitor the patient's symptoms of orthostatic hypotension and follow-up with progress. Physical therapy on board for functional optimization. VS, I&O, 24H, Fishbone Vital Signs/I&O Vital Signs Date Time Temp Pulse Resp B/P (MAP) Pulse Ox O2 Delivery O2 Flow Rate FiO2 11/26/16 10:20 18 Room Air 11/26/16 06:00 99.1 75 166/86 (112) 98 I&O- Last 24 Hours up to 6 AM 11/26/16 06:00 Intake Total 5540 ml Output Total 3420 ml Balance 2120 ml Laboratory Data 24H LABS Laboratory Tests 2 11/25/16 16:24: Bedside Glucose (Misc Panel) 329H 11/25/16 20:54: Bedside Glucose (Misc Panel) 304H 11/26/16 05:27: White Blood Count 9.7, Red Blood Count 3.01L, Hemoglobin 9.2L, Hematocrit 26.4L , Mean Corpuscular Volume 87.9, Mean Corpuscular Hemoglobin 30.6, Mean Corpuscular Hemoglobin Concent 34.8, Red Cell Distribution Width 14.5, Platelet Count 220, Neutrophils (%) (Auto) 85.3H, Lymphocytes (%) (Auto) 10.4L, Monocytes (%) (Auto) 3.1, Eosinophils (%) (Auto) 0.4, Basophils (%) (Auto) 0.3, Neutrophils # (Auto) 8.3H, Lymphocytes # (Auto) 1.1L, Monocytes # (Auto) 0.3, Eosinophils # (Auto) 0.0, Basophils # (Auto) 0.0, Large Unclassified Cells % 0.5 , Large Unclassified Cells # 0.1, Anion Gap 7L, Glomerular Filtration Rate > 60.0, Blood Urea Nitrogen 11, Creatinine 0.58L, Sodium Level 137, Potassium Level 3.3L, Chloride Level 100, Carbon Dioxide Level 30, Calcium Level 6.8L, Phosphorus Level 1.8L, Magnesium Level 1.8 11/26/16 11:17: Bedside Glucose (Misc Panel) 117H CBC/BMP Laboratory Tests 11/26/16 05:27 Red Blood Count 3.01 L, Mean Corpuscular Volume 87.9, Mean Corpuscular Hemoglobin 30.6, Mean Corpuscular Hemoglobin Concent 34.8, Red Cell Distribution Width 14.5, Neutrophils (%) (Auto) 85.3 H, Lymphocytes (%) (Auto) 10.4 L, Monocytes (%) (Auto) 3.1, Eosinophils (%) (Auto) 0.4, Basophils (%) ( Auto) 0.3, Neutrophils # (Auto) 8.3 H, Lymphocytes # (Auto) 1.1 L, Monocytes # ( Auto) 0.3, Eosinophils # (Auto) 0.0, Basophils # (Auto) 0.0, Calcium Level 6.8 L CONCETTA HAYNES MD Nov 26, 2016 11:51
[2016-11-26] MEDS ORDERED: POTASSIUM CHLORIDE 10% LIQ 20 MEQ/15 ML UDC PO ONE ×2 (13:00→21:00)
[2016-11-26 14:00] VITALS: BP 172/91
[2016-11-26] MEDS: traMADol 50 MG TAB PO PRN (14:10)
[2016-11-26 14:23] VITALS: BP 180/86
[2016-11-26] MEDS: RIZATRIPTAN BENZOATE 10 MG TAB PO PRN (14:59)
[2016-11-26 15:50] VITALS: BP 136/70
[2016-11-26] MEDS: LEVEMIR (INSULIN DETEMIR) 1 UNITS/0.01ML SC SCH (21:16)
[2016-11-26] MEDS: LATANOPROST 0.005% OPHTH SOLN 2.5 ML OU SCH (21:16)
[2016-11-26 22:00] VITALS: BP 101/55
[2016-11-26] MEDS: ENOXAPARIN 100MG/1ML SYRINGE (J1650) SC SCH (23:45)
[2016-11-27] VITALS (7 sets, daily range): BP systolic 83–188; BP diastolic 57–102
[2016-11-27] MEDS: SUCRALFATE SUSP 1GM/10ML UD PO SCH ×4 (05:40→23:33)
[2016-11-27] MEDS: SODIUM CHLORIDE 0.9% INJ 10 ML SYR IV SCH (05:41)
[2016-11-27] MEDS: **hydrALAZINE HCL** 25 MG TAB PO SCH ×3 (05:41→22:00)
[2016-11-27 05:52] LABS: BASO % 0.1 % (0.0-1.0); EOS % 0.1 % (0.0-3.0); LARGE UNSTAINED CELL % 0.5 % (0.0-4.0); LYMPH # 0.6 K/mm3 (1.5-4.5); LYMPH % 7.4 % (24.0-44.0); MEAN CORPUSCULAR HEMOGLOBIN 30.3 pg (27.0-33.0); MEAN CORPUSCULAR HGB CONC 33.8 g/dl (32.0-36.5); MEAN CORPUSCULAR VOLUME 89.7 fl (80.0-96.0); MONO # 0.2 K/mm3 (0.0-0.8); NEUTROPHILS # 6.9 K/mm3 (1.8-7.7); NEUTROPHILS % 88.9 % (36.0-66.0); PLATELET COUNT, AUTOMATED 219 k/mm3 (150-450); RED CELL DISTRIBUTION WIDTH 14.6 % (11.5-14.5); WHITE BLOOD COUNT 7.8 K/mm3 (4.0-10.0)
[2016-11-27 06:17] LABS: ANION GAP 10 MEQ/L (8-16); BLOOD UREA NITROGEN 16 MG/DL (7-18); CALCIUM LEVEL 7.6 MG/DL (8.5-10.1); CARBON DIOXIDE LEVEL 27 MEQ/L (21-32); CHLORIDE LEVEL 96 MEQ/L (98-107); CREATININE FOR GFR 0.82 MG/DL (0.70-1.30); GLOMERULAR FILTRATION RATE > 60.0 (>56); GLUCOSE, FASTING 289 MG/DL (70-105); PHOSPHORUS LEVEL 3.7 MG/DL (2.5-4.9); SODIUM LEVEL 133 MEQ/L (136-145)
[2016-11-27 06:34] LABS: POTASSIUM SERUM 4.9 MEQ/L (3.5-5.1)
[2016-11-27] MEDS ORDERED: ELIQ5TAB PO (07:49)
[2016-11-27] MEDS: HumaLOG INSULIN (NovoLOG) PER UNIT SC SCH ×4 (08:01→20:19)
[2016-11-27] MEDS: methylPREDNISolone INJ 40 MG/1 ML VIAL (J2920) IV SCH ×2 (08:02→20:01)
[2016-11-27] MEDS: K-PHOS NEUTRAL 250MG TABLET (SOD.PHOSPHATE/POT.PHOSPHATE) PO SCH (09:00)
[2016-11-27] MEDS: ATORVASTATIN 20 MG TAB PO SCH (09:47)
[2016-11-27] MEDS: CitaloPRAM (CeleXA) 20 MG TAB PO SCH (09:47)
[2016-11-27] MEDS: FLUDROCORTISONE ACETATE 0.1 MG TAB PO SCH (09:47)
[2016-11-27] MEDS: ASPIRIN 81 MG ENTERIC TAB PO SCH (09:47)
[2016-11-27] MEDS: MIRALAX *UNIT DOSE* 17GM PACKET PO PRN (09:48)
[2016-11-27] MEDS: LEVEMIR (INSULIN DETEMIR) 1 UNITS/0.01ML SC SCH ×2 (09:48→20:20)
[2016-11-27] MEDS: ANALGESIC BALM CRM 120 GM TOP SCH ×4 (09:49→20:03)
[2016-11-27] MEDS: COSOPT OCUMETER PLUS 10ML (DORZOLAMIDE/TIMOLOL) OU SCH ×2 (09:49→20:02)
[2016-11-27] MEDS: PANTOPRAZOLE 40MG TAB (PROTONIX) PO SCH ×2 (10:42→20:01)
[2016-11-27] MEDS: traMADol 50 MG TAB PO PRN (11:13)
--- NOTE | 2016-11-27 11:53 | IPNPDOC ---
Subjective Date Seen The patient was seen on 11/27/16. Subjective Chief Complaint/HPI Patient seen and examined at the bedside. States that his neck pain is much improved this morning. Notes that his right upper extremity swelling is also decreased since yesterday. Denies any other acute complaints at this time. Objective Physical Examination General Exam: Positive: Alert, Cooperative, No Acute Distress ENT Exam: Positive: Atraumatic, Mucous membr. moist/pink Neck Exam: Negative: JVD Chest Exam: Positive: Clear to auscultation, Normal air movement Heart Exam: Positive: Rate Normal, Normal S1, Normal S2 Abdomen Exam: Positive: Soft, Negative: Tenderness Extremity Exam: Positive: Other (1+ edema noted in the RUE--improving) Psych Exam: Positive: Oriented x 3 Assessment /Plan Plan/VTE VTE Prophylaxis Ordered?: Yes Plan Right Upper Extremity DVT 2/2 PICC Line U/S of the RUE notable for thrombus extending from the right brachial vein, superiorly into the right axillary vein and into the subclavian vein. Patient's extremity in no pain this AM Line still functional--however we will hold off on using it at this time, and D/ C the PICC Line once we can secure other peripheral access Lovenox SC 1.5mg/kg daily ordered Eliquis sent to the patient's pharmacy for approval Near Syncopal Episode likely 2/2 Orthostatic Hypotension s/p IVF Hydration 2D ECHO notable for Diastolic Dysfunction I do suspect that the patient may have underlying autonomic neuropathy from underlying Type 1 DM causing him to be orthostatic The patient has been on Florinef The patient's orthostatic vitals have been having improving with IVF Hydration-- Will continue checking orthostatic vitals Patient encouraged to sit in chair during the day PT on board for functional optimization Giant cell arteritis Follows with rheumatology as an outpatient Patient complaining once again of flare up of neck pain--improved today On IV Solumedrol at this time Esophagitis with Gastritis 2/2 Acute on Chronic Inflammation, with possible underlying Candidal Esophagitis EGD done on 11/03/[address] Raphael revealed grade D Esophagitis with no bleeding noted in the lower third of the esophagus. There was also mild segmental inflammation characterized by congestion and erythema found in the cardia. Biopsy results of the distal esophagus suggestive of stromal tissue with abundant acute and chronic inflammation Stomach biopsy with no significant pathologic change, no Helicobacter organisms identified. The patient's esophagitis is possibly attributable to underlying monilial esophagitis as per surgery s/p completion of Diflucan therapy We will continue with Protonix twice a day, and Carafate. When necessary GI cocktail has also been ordered The patient states that his symptoms have improved, denies any acute complaints at this time I've advised the patient to abstain from certain foods that could exacerbate his symptoms such as alcohol, caffeine, carbonated drinks, chocolate, etc. We will continue to monitor the patient's progress at this time Appreciate surgical input. Type 1 diabetes mellitus The patient does follow with endocrinology in [place]. He uses an insulin pump at baseline, however he has had episodes of hypoglycemia here when his insulin pump was restarted. The patient has been switched over to Levemir and an insulin sliding scale here. 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 Diabetic medications and supplies have already been sent to his pharmacy. Anxiety, depression, stable Continue Celexa DVT prophylaxis On Lovenox for RUE DVT Disposition-we will continue to monitor the patient's symptoms of orthostatic hypotension and follow-up with progress. Physical therapy on board for functional optimization. VS, I&O, 24H, [place] Vital Signs/I&O Vital Signs Date Time Temp Pulse Resp B/P (MAP) Pulse Ox O2 Delivery O2 Flow Rate FiO2 11/27/16 11:13 18 11/27/16 08:30 186/90 (122) 11/27/16 08:12 98.8 81 99 Room Air I&O- Last 24 Hours up to 6 AM 11/27/16 06:00 Intake Total 2630 ml Output Total 3150 ml Balance -520 ml Laboratory Data 24H LABS Laboratory Tests 2 11/26/16 16:31: Bedside Glucose (Misc Panel) 266H 11/26/16 20:38: Bedside Glucose (Misc Panel) 360H 11/27/16 05:23: White Blood Count 7.8, Red Blood Count 3.23L, Hemoglobin 9.8L, Hematocrit 29.0L , Mean Corpuscular Volume 89.7, Mean Corpuscular Hemoglobin 30.3, Mean Corpuscular Hemoglobin Concent 33.8, Red Cell Distribution Width 14.6H, Platelet Count 219, Neutrophils (%) (Auto) 88.9H, Lymphocytes (%) (Auto) 7.4L, Monocytes (%) (Auto) 3.0, Eosinophils (%) (Auto) 0.1, Basophils (%) (Auto) 0.1, Neutrophils # (Auto) 6.9, Lymphocytes # (Auto) 0.6L, Monocytes # (Auto) 0.2, Eosinophils # (Auto) 0.0, Basophils # (Auto) 0.0, Large Unclassified Cells % 0.5 , Large Unclassified Cells # 0.0, Anion Gap 10, Glomerular Filtration Rate > 60.0, Blood Urea Nitrogen 16, Creatinine 0.82, Sodium Level 133L, Potassium Level 4.9#, Chloride Level 96L, Carbon Dioxide Level 27, Calcium Level 7.6L, Phosphorus Level 3.7# 11/27/16 08:47: Bedside Glucose (Misc Panel) 309H CBC/BMP Laboratory Tests 11/27/16 05:23 Red Blood Count 3.23 L, Mean Corpuscular Volume 89.7, Mean Corpuscular Hemoglobin 30.3, Mean Corpuscular Hemoglobin Concent 33.8, Red Cell Distribution Width 14.6 H, Neutrophils (%) (Auto) 88.9 H, Lymphocytes (%) (Auto ) 7.4 L, Monocytes (%) (Auto) 3.0, Eosinophils (%) (Auto) 0.1, Basophils (%) ( Auto) 0.1, Neutrophils # (Auto) 6.9, Lymphocytes # (Auto) 0.6 L, Monocytes # ( Auto) 0.2, Eosinophils # (Auto) 0.0, Basophils # (Auto) 0.0, Calcium Level 7.6 L CONCETTA HAYNES MD Nov 27, 2016 11:53
[2016-11-27] MEDS ORDERED: SLF 3 ML SYR IV PRN (17:15)
[2016-11-27] MEDS: LATANOPROST 0.005% OPHTH SOLN 2.5 ML OU SCH (20:02)
[2016-11-27] MEDS: SLF 3 ML SYR IV SCH (20:21)
[2016-11-27] MEDS: ENOXAPARIN 100MG/1ML SYRINGE (J1650) SC SCH (23:33)
[2016-11-28 06:00] VITALS: BP 198/101
[2016-11-28] MEDS: SLF 3 ML SYR IV SCH ×3 (06:00→22:00)
[2016-11-28 06:59] LABS: EOS % 0.2 % (0.0-3.0); LARGE UNSTAINED CELL # 0.1 K/mm3 (0.0-0.4); LARGE UNSTAINED CELL % 0.6 % (0.0-4.0); LYMPH # 0.7 K/mm3 (1.5-4.5); LYMPH % 8.4 % (24.0-44.0); MEAN CORPUSCULAR HEMOGLOBIN 30.7 pg (27.0-33.0); MEAN CORPUSCULAR HGB CONC 35.3 g/dl (32.0-36.5); MONO # 0.3 K/mm3 (0.0-0.8); MONO % 3.9 % (0.0-5.0); NEUTROPHILS # 7.6 K/mm3 (1.8-7.7); NEUTROPHILS % 86.8 % (36.0-66.0); PLATELET COUNT, AUTOMATED 254 k/mm3 (150-450); RED CELL DISTRIBUTION WIDTH 14.3 % (11.5-14.5); WHITE BLOOD COUNT 8.7 K/mm3 (4.0-10.0)
[2016-11-28 07:05] LABS: ANION GAP 5 MEQ/L (8-16); BLOOD UREA NITROGEN 18 MG/DL (7-18); CALCIUM LEVEL 8.4 MG/DL (8.5-10.1); CARBON DIOXIDE LEVEL 32 MEQ/L (21-32); CHLORIDE LEVEL 95 MEQ/L (98-107); CREATININE FOR GFR 0.73 MG/DL (0.70-1.30); GLOMERULAR FILTRATION RATE > 60.0 (>56); GLUCOSE, FASTING 170 MG/DL (70-105); PHOSPHORUS LEVEL 3.1 MG/DL (2.5-4.9); POTASSIUM SERUM 4.2 MEQ/L (3.5-5.1); SODIUM LEVEL 132 MEQ/L (136-145)
[2016-11-28] MEDS: SUCRALFATE SUSP 1GM/10ML UD PO SCH ×3 (07:07→17:25)
[2016-11-28] MEDS: **hydrALAZINE HCL** 25 MG TAB PO SCH ×3 (07:08→22:30)
[2016-11-28 07:32] VITALS: BP_SYST 100; BP_SYST 126; BP_SYST 143; BP_DIAS 60; BP_DIAS 68; BP_DIAS 80
[2016-11-28] MEDS: methylPREDNISolone INJ 40 MG/1 ML VIAL (J2920) IV SCH ×2 (08:54→20:37)
[2016-11-28] MEDS: HumaLOG INSULIN (NovoLOG) PER UNIT SC SCH ×4 (08:54→22:03)
[2016-11-28] MEDS: ATORVASTATIN 20 MG TAB PO SCH (08:55)
[2016-11-28] MEDS: FLUDROCORTISONE ACETATE 0.1 MG TAB PO SCH (08:55)
[2016-11-28] MEDS: PANTOPRAZOLE 40MG TAB (PROTONIX) PO SCH ×2 (08:55→22:03)
[2016-11-28] MEDS: CitaloPRAM (CeleXA) 20 MG TAB PO SCH (08:55)
[2016-11-28] MEDS: LEVEMIR (INSULIN DETEMIR) 1 UNITS/0.01ML SC SCH ×2 (08:55→22:04)
[2016-11-28] MEDS: ASPIRIN 81 MG ENTERIC TAB PO SCH (08:55)
[2016-11-28] MEDS: ANALGESIC BALM CRM 120 GM TOP SCH ×4 (08:56→22:04)
[2016-11-28] MEDS: COSOPT OCUMETER PLUS 10ML (DORZOLAMIDE/TIMOLOL) OU SCH ×2 (08:56→22:04)
[2016-11-28] MEDS: traMADol 50 MG TAB PO PRN (11:29)
[2016-11-28 14:00] VITALS: BP_SYST 100; BP_SYST 160; BP_DIAS 67; BP_DIAS 82
[2016-11-28] MEDS: NS 1,000 ML IV SCH (15:31)
--- NOTE | 2016-11-28 15:32 | IPN ---
DATE: 11/28/2016 SUBJECTIVE: Patient is seen and examined in the room today. Patient stated his orthostatic hypotension symptoms are improving. Patient is able to perform more with physical therapy. Patient stated the pain during oral intake has been in control. OBJECTIVE: VITAL SIGNS: Temperature 97.8, pulse is 88, respirations 18, blood pressure in supine is 143/68, sitting is 126/80, standing is 100/60, oxygen saturation is 98% in room air. GENERAL: No sign of acute distress. Alert and oriented times three. HEENT: Normocephalic, atraumatic. Extraocular motors grossly intact. CARDIOVASCULAR: Positive S1, S2, regular rate. LUNGS: Clear to auscultation bilaterally. ABDOMEN: Soft, nontender, nondistended. EXTREMITIES: 1+ edema in the right upper extremities. No sign of cyanosis. LABORATORY DATA: WBC 8.7, hemoglobin 9.9, hematocrit 28, platelet count 254. Sodium is 132, potassium 4.2, chloride 95, carbon dioxide 32, BUN 18, creatinine 0.73, GFR greater than 60, fasting glucose is 170, calcium is 8.4, phosphorous 3.1. ASSESSMENT AND PLAN: 1. Right upper extremity deep venous thrombosis (DVT) secondary to peripherally inserted central catheter (PICC) line. Peripherally inserted central catheter (PICC) line was removed. Patient is on therapeutic dosage of Lovenox. 2. Symptomatic orthostatic hypotension. Patient continues to have significant urinary output. Will continue to adjust the Levemir dosage to achieve better glucose control, however it has been very difficult since the patient had significant fluctuation of oral intake previously due to persistent nausea, vomiting, and abdominal pain. Patient was on aggressive IV resuscitation previously. We do have IV access in the peripheral. Now, we will encourage oral intake and continue with IV hydration. Patient is continued on Florinef. A 2D echo was performed and patient was noted to have diastolic dysfunction. Will be cautious with regard to intake and output. Per medical record, patient has been maintaining a significant net negative balance. 3. Giant cell arteritis. Patient has had frequent flares during the current hospitalization. Every time we taper down the oral prednisone, patient will start recurrence of the right-sided neck pain and the temporal pain. Currently, patient's steroid dose had to be escalated again. Patient is currently on IV Solu-Medrol. Patient will benefit from prednisone at 60 mg by mouth daily once patient is more stable. Patient has a rn eligibility in [place]. Patient should have urgent followup with the rn eligibility once patient is discharged from the hospital. 4. Esophagitis with gastritis secondary to candidal esophagitis. Patient finished a course of Diflucan and oral nystatin solutions. Currently, his epigastric pain and esophageal pain during oral intake has been controlled. Patient is also continued on Protonix. 5. Type 1 diabetes. Patient continues to have fluctuation of the fasting glucose. Will be very cautious with regard to adjusting patient's glucose level. Intermittently, patient has acute decrease of oral intake which results in significant hypoglycemia. On 11/10/2016, patient's morning fasting glucose was 70, on 11/22/2016, patient's glucose was 38, and on 11/25/2016, patient's morning glucose was 49. Now, patient's oral intake is more stabilized compared to before. Will adjust the Levemir to control his type 1 diabetes. Patient is now recommended to be started on the insulin pump. Patient does experience significant hypoglycemia when the insulin pump is started. At the time of discharge, patient will be discharged home with Levemir and covered with sliding scale insulin. 6. Anxiety/depression. Continue Celexa. 7. Deep vein thrombosis (DVT) prophylaxis. Patient is on a full dose of Lovenox for the right upper extremity deep venous thrombosis (DVT).
[2016-11-28 22:00] VITALS: BP_SYST 100; BP_SYST 120; BP_SYST 140; BP_DIAS 60; BP_DIAS 90
[2016-11-28] MEDS: LATANOPROST 0.005% OPHTH SOLN 2.5 ML OU SCH (22:04)
[2016-11-28] MEDS: ENOXAPARIN 100MG/1ML SYRINGE (J1650) SC SCH (22:05)
[2016-11-29] MEDS: SUCRALFATE SUSP 1GM/10ML UD PO SCH ×5 (00:38→23:14)
[2016-11-29] MEDS: NS 1,000 ML IV SCH ×3 (00:39→19:49)
[2016-11-29 05:54] LABS: BASO % 0.1 % (0.0-1.0); EOS % 0.4 % (0.0-3.0); LARGE UNSTAINED CELL % 0.3 % (0.0-4.0); LYMPH # 0.7 K/mm3 (1.5-4.5); LYMPH % 7.4 % (24.0-44.0); MEAN CORPUSCULAR HEMOGLOBIN 30.4 pg (27.0-33.0); MEAN CORPUSCULAR HGB CONC 34.5 g/dl (32.0-36.5); MEAN CORPUSCULAR VOLUME 87.9 fl (80.0-96.0); MONO # 0.3 K/mm3 (0.0-0.8); MONO % 3.8 % (0.0-5.0); NEUTROPHILS # 7.6 K/mm3 (1.8-7.7); NEUTROPHILS % 87.9 % (36.0-66.0); PLATELET COUNT, AUTOMATED 236 k/mm3 (150-450); RED CELL DISTRIBUTION WIDTH 14.8 % (11.5-14.5); WHITE BLOOD COUNT 8.7 K/mm3 (4.0-10.0)
[2016-11-29 06:30] VITALS: BP_SYST 110; BP_SYST 150; BP_SYST 80; BP_DIAS 50; BP_DIAS 60; BP_DIAS 80
[2016-11-29] MEDS: SLF 3 ML SYR IV SCH ×3 (06:43→22:00)
[2016-11-29] MEDS: **hydrALAZINE HCL** 25 MG TAB PO SCH ×3 (06:43→22:00)
[2016-11-29] MEDS: LEVEMIR (INSULIN DETEMIR) 1 UNITS/0.01ML SC SCH ×2 (08:31→20:54)
[2016-11-29] MEDS: HumaLOG INSULIN (NovoLOG) PER UNIT SC SCH ×4 (08:33→20:54)
[2016-11-29] MEDS: PANTOPRAZOLE 40MG TAB (PROTONIX) PO SCH ×2 (08:33→20:53)
[2016-11-29] MEDS: ASPIRIN 81 MG ENTERIC TAB PO SCH (08:33)
[2016-11-29] MEDS: methylPREDNISolone INJ 40 MG/1 ML VIAL (J2920) IV SCH ×2 (08:33→20:53)
[2016-11-29] MEDS: CitaloPRAM (CeleXA) 20 MG TAB PO SCH (08:34)
[2016-11-29] MEDS: COSOPT OCUMETER PLUS 10ML (DORZOLAMIDE/TIMOLOL) OU SCH ×2 (08:36→20:54)
[2016-11-29] MEDS: ATORVASTATIN 20 MG TAB PO SCH (08:36)
[2016-11-29] MEDS: ANALGESIC BALM CRM 120 GM TOP SCH ×4 (08:37→20:55)
[2016-11-29] MEDS: FLUDROCORTISONE ACETATE 0.1 MG TAB PO SCH (08:41)
[2016-11-29 14:01] VITALS: BP_SYST 110; BP_SYST 148; BP_SYST 82; BP_DIAS 54; BP_DIAS 68; BP_DIAS 78
[2016-11-29 14:04] VITALS: BP 148/78
[2016-11-29] MEDS: traMADol 50 MG TAB PO PRN (14:59)
--- NOTE | 2016-11-29 15:15 | IPN ---
DATE: 11/29/2016 SUBJECTIVE: The patient is seen and examined in the room today. The patient stated he noticed improvement with physical therapy. He is less symptomatic from his orthostatic hypotension. The patient's epigastric and esophageal pain has shown significant improvement. He has not been using the gastrointestinal (GI) cocktail since 11/26/2016. The patient's neck pain and right temporal pain also is under control. OBJECTIVE: VITAL SIGNS: Temperature is 97.9, pulse is 79, respirations 18, blood pressure in supine is 148/78, sitting is 110/68, standing is 82/54, oxygen saturation is 97% in room air. GENERAL: No sign of acute distress, alert and oriented times three. HEENT: Normocephalic, atraumatic. Extraocular motor grossly intact. CARDIOVASCULAR: Positive S1, S2, regular rate. LUNGS: Clear to auscultation bilaterally. ABDOMEN: Soft, nontender, nondistended. Bowel sounds present. EXTREMITIES: Pitting edema of the right upper extremity. No sign of cyanosis. LABORATORY DATA: WBC is 8.7, hemoglobin 9.4, hematocrit 27.3, platelet count is 230. Phosphorus is 2.9. ASSESSMENT AND PLAN: 1. Symptomatic orthostatic hypotension. The patient continues to have a net negative balance. The patient continues to have significant urinary output. We will continue to increase the Levemir level to control the patient's diabetes better. The patient had a peripherally inserted central catheter (PICC) line previously. However, due to the deep vein thrombosis (DVT), PICC line was removed. There was a peripheral line established after the discontinuation of the PICC line. The patient is continued on aggressive fluid IV hydrations. We will also encourage the patient to continue eating and drinking more liquid as tolerated to balance the fluid loss. The patient has been working with physical therapy. Clinically, his symptoms have been improving. The patient is able to perform more with physical training. 2. Right upper extremity DVT, secondary to PICC line. PICC line was removed. The patient is on therapeutic dose of Lovenox. 3. Giant cell arteritis. The patient is currently on IV Solu-Medrol. Throughout this hospitalization every time we tried tapering the patient down on the steroids, he would start experiencing significant right temporal pain and right upper neck pain. Currently, pain is under control and the patient may benefit with high-dose of prednisone once the patient is more stable and ready for discharge. The patient has established with a religious leader in [place]. The patient should have urgent followup with a religious leader once the patient is discharged from the hospital. 4. Esophagitis and gastritis, secondary to candidal esophagitis. The patient finished a course of Diflucan and also oral nystatin solutions. The patient stated his pain symptoms have shown significant improvement. He does not require a gastrointestinal (GI) cocktail for the past few days. The patient has better oral intake. The patient is continued on Protonix. 5. Type 1 diabetes. The patient started to have more oral intake now. We will continue to titrate the Levemir according to the patient's insulin usage. The patient does have an insulin pump. However, there was an incident when we tried to restart the insulin pump and the patient experienced severe hypoglycemia. Glucose was in the 30s. At the time of discharge, the patient may benefit with Levemir, covering with insulin sliding scale. 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 6. Anxiety/depression, on Celexa. 7. DVT prophylaxis. The patient is on a therapeutic dose of Lovenox for his right upper extremity DVT.
[2016-11-29] MEDS: LATANOPROST 0.005% OPHTH SOLN 2.5 ML OU SCH (20:54)
[2016-11-29 22:00] VITALS: BP_SYST 120; BP_SYST 145; BP_DIAS 70; BP_DIAS 76
[2016-11-29] MEDS: ENOXAPARIN 100MG/1ML SYRINGE (J1650) SC SCH (23:15)
[2016-11-30 05:57] LABS: MEAN CORPUSCULAR HEMOGLOBIN 31.6 pg (27.0-33.0); MEAN CORPUSCULAR HGB CONC 35.9 g/dl (32.0-36.5); MEAN CORPUSCULAR VOLUME 87.9 fl (80.0-96.0); RED CELL DISTRIBUTION WIDTH 14.3 % (11.5-14.5); WHITE BLOOD COUNT 8.7 K/mm3 (4.0-10.0)
[2016-11-30] MEDS: SUCRALFATE SUSP 1GM/10ML UD PO SCH ×4 (05:59→23:33)
[2016-11-30] MEDS: MIRALAX *UNIT DOSE* 17GM PACKET PO PRN (05:59)
[2016-11-30 06:00] VITALS: BP_SYST 115; BP_SYST 145; BP_SYST 98; BP_DIAS 56; BP_DIAS 62; BP_DIAS 65
[2016-11-30] MEDS: **hydrALAZINE HCL** 25 MG TAB PO SCH ×3 (06:00→21:32)
[2016-11-30] MEDS: SLF 3 ML SYR IV SCH ×3 (06:00→21:34)
[2016-11-30 06:23] LABS: ANION GAP 9 MEQ/L (8-16); BLOOD UREA NITROGEN 16 MG/DL (7-18); CALCIUM LEVEL 7.2 MG/DL (8.5-10.1); CARBON DIOXIDE LEVEL 27 MEQ/L (21-32); CHLORIDE LEVEL 102 MEQ/L (98-107); CREATININE FOR GFR 0.55 MG/DL (0.70-1.30); GLOMERULAR FILTRATION RATE > 60.0 (>56); GLUCOSE, FASTING 87 MG/DL (70-105); PHOSPHORUS LEVEL 2.3 MG/DL (2.5-4.9); POTASSIUM SERUM 3.7 MEQ/L (3.5-5.1); SODIUM LEVEL 138 MEQ/L (136-145)
[2016-11-30] MEDS: NS 1,000 ML IV SCH ×2 (07:04→15:35)
[2016-11-30] MEDS: HumaLOG INSULIN (NovoLOG) PER UNIT SC SCH ×4 (07:30→21:00)
[2016-11-30] MEDS: methylPREDNISolone INJ 40 MG/1 ML VIAL (J2920) IV SCH ×2 (10:13→21:32)
[2016-11-30] MEDS: ASPIRIN 81 MG ENTERIC TAB PO SCH (10:14)
[2016-11-30] MEDS: K-PHOS ORIGINAL (POT.ACID PHOSPHATE) 500MG TAB PO SCH ×2 (10:14→21:33)
[2016-11-30] MEDS: ATORVASTATIN 20 MG TAB PO SCH (10:15)
[2016-11-30] MEDS: CitaloPRAM (CeleXA) 20 MG TAB PO SCH (10:15)
[2016-11-30] MEDS: FLUDROCORTISONE ACETATE 0.1 MG TAB PO SCH (10:16)
[2016-11-30] MEDS: PANTOPRAZOLE 40MG TAB (PROTONIX) PO SCH ×2 (10:16→21:33)
[2016-11-30] MEDS: COSOPT OCUMETER PLUS 10ML (DORZOLAMIDE/TIMOLOL) OU SCH ×2 (10:17→21:34)
[2016-11-30] MEDS: ANALGESIC BALM CRM 120 GM TOP SCH ×4 (10:17→21:35)
[2016-11-30] MEDS: LEVEMIR (INSULIN DETEMIR) 1 UNITS/0.01ML SC SCH (10:26)
[2016-11-30] MEDS: traMADol 50 MG TAB PO PRN (11:08)
[2016-11-30 12:00] VITALS: BP 142/72
[2016-11-30 12:45] VITALS: BP_SYST 140; BP_SYST 172; BP_DIAS 62; BP_DIAS 92
[2016-11-30] MEDS: RIZATRIPTAN BENZOATE 10 MG TAB PO PRN (12:45)
[2016-11-30 14:29] VITALS: BP 170/80
[2016-11-30] MEDS ORDERED: LEVEMIR (INSULIN DETEMIR) 1 UNITS/0.01ML SC SCH (21:00)
[2016-11-30] MEDS: LATANOPROST 0.005% OPHTH SOLN 2.5 ML OU SCH (21:34)
[2016-11-30 22:00] VITALS: BP_SYST 100; BP_SYST 125; BP_SYST 150; BP_DIAS 65; BP_DIAS 70; BP_DIAS 78
[2016-11-30] MEDS: ENOXAPARIN 100MG/1ML SYRINGE (J1650) SC SCH (23:33)
[2016-12-01] MEDS: NS 1,000 ML IV SCH ×2 (00:53→09:57)
[2016-12-01] MEDS: SUCRALFATE SUSP 1GM/10ML UD PO SCH ×2 (05:58→12:29)
[2016-12-01 06:00] VITALS: BP_SYST 129; BP_SYST 150; BP_SYST 155; BP_SYST 98; BP_DIAS 67; BP_DIAS 75; BP_DIAS 80; BP_DIAS 88
[2016-12-01] MEDS: **hydrALAZINE HCL** 25 MG TAB PO SCH ×2 (06:00→14:00)
[2016-12-01] MEDS: methylPREDNISolone INJ 40 MG/1 ML VIAL (J2920) IV SCH (08:00)
[2016-12-01] MEDS ORDERED: LEVEMIR (INSULIN DETEMIR) 1 UNITS/0.01ML SC SCH (09:00)
[2016-12-01] MEDS: K-PHOS ORIGINAL (POT.ACID PHOSPHATE) 500MG TAB PO SCH (09:22)
[2016-12-01] MEDS: FLUDROCORTISONE ACETATE 0.1 MG TAB PO SCH (09:22)
[2016-12-01] MEDS: ATORVASTATIN 20 MG TAB PO SCH (09:22)
[2016-12-01] MEDS: ASPIRIN 81 MG ENTERIC TAB PO SCH (09:23)
[2016-12-01] MEDS: PANTOPRAZOLE 40MG TAB (PROTONIX) PO SCH (09:23)
[2016-12-01] MEDS: COSOPT OCUMETER PLUS 10ML (DORZOLAMIDE/TIMOLOL) OU SCH (09:23)
[2016-12-01] MEDS: CitaloPRAM (CeleXA) 20 MG TAB PO SCH (09:23)
[2016-12-01] MEDS: ANALGESIC BALM CRM 120 GM TOP SCH ×2 (09:24→12:32)
[2016-12-01] MEDS: HumaLOG INSULIN (NovoLOG) PER UNIT SC SCH ×2 (09:25→12:30)
[2016-12-01] MEDS: SLF 3 ML SYR IV SCH (09:57)
[2016-12-01] MEDS ORDERED: INSUDET SC ×4 (10:09→14:57)
[2016-12-01] MEDS ORDERED: PANT40TA2 PO ×2 (10:09→14:57)
[2016-12-01] MEDS ORDERED: PRED20TA PO ×2 (10:09→14:57)
[2016-12-01] MEDS ORDERED: MAXA5TAB10 PO ×3 (10:09→14:57)
[2016-12-01] MEDS ORDERED: KPHOS50TA PO ×2 (10:09→14:57)
[2016-12-01] MEDS: traMADol 50 MG TAB PO PRN (12:31)
[2016-12-01 14:00] VITALS: BP_SYST 123; BP_SYST 132; BP_DIAS 66; BP_DIAS 70
[2016-12-01] MEDS ORDERED: GLUC1KIT INJ (14:57)
[2016-12-01] MEDS ORDERED: ASPI81TA85 PO (14:57)
[2016-12-01] MEDS ORDERED: LISI10TA4 PO (14:57)
[2016-12-01] MEDS ORDERED: DORZ2SOL5 OU (14:57)
[2016-12-01] MEDS ORDERED: FLON1SPR (14:57)
[2016-12-01] MEDS ORDERED: ELIQ5TAB PO (14:57)
[2016-12-01] MEDS ORDERED: ATOR40TA75 PO (14:57)
[2016-12-01] MEDS ORDERED: CITA40TA4 PO (14:57)
[2016-12-01] MEDS ORDERED: LATA5OPD OU (14:57)
[2016-12-01 14:58] VITALS: BP_SYST 100; BP_SYST 138; BP_DIAS 62; BP_DIAS 80
[2016-12-02] MEDS ORDERED: ATOR40TA75 PO (15:52)
[2016-12-02] MEDS ORDERED: LISI10TA4 PO (15:52)
[2016-12-02] MEDS ORDERED: LATA5OPD OU (15:52)
[2016-12-02] MEDS ORDERED: CITA40TA4 PO (15:52)
[2016-12-02] MEDS ORDERED: PROT1TAB2 PO (15:52)
[2016-12-02] MEDS ORDERED: ELIQ5TAB PO (15:52)
[2016-12-02] MEDS ORDERED: ASPI81TA24 PO (15:52)
[2016-12-02] MEDS ORDERED: INSUDET SC ×2 (15:52)
[2016-12-02] MEDS ORDERED: DORZ2SOL5 OU (15:52)
[2016-12-02] MEDS ORDERED: FLON1SPR (15:52)
[2016-12-02] MEDS ORDERED: INSUH10VL SC (15:52)
[2016-12-02] MEDS ORDERED: KPHOS50TA PO (15:56)
[2016-12-02] MEDS ORDERED: RIZA5TAB PO (15:56)
[2016-12-02] MEDS ORDERED: PRED20TA PO (15:56)
--- NOTE | 2016-12-06 00:36 | DSES ---
DATE OF ADMISSION: 10/31/2016 DATE OF SIGNING OUT AGAINST MEDICAL ADVICE (AMA): 12/01/2016 PRIMARY CARE PROVIDER: [facility] CONSULTANTS: Pain Management. General Surgery, Dr. Raphael PROCEDURES: Upper endoscopy. COMPLICATIONS: None. DISCHARGE DIAGNOSES: 1. Persistent symptomatic orthostatic hypotension. 2. Right upper extremity deep vein thrombosis (DVT) from peripherally inserted central catheter (PICC) line use. 3. Giant cell arteritis with frequent flare up. 4. Esophagitis and gastritis secondary to candidal esophagitis. 5. Type 1 diabetes. 6. Anxiety/depression. HOSPITALIZATION COURSE: The patient is a 56-year-old male who presented to [facility] on 10/31/2016 with generalized weakness and poor oral intake. Patient also found to have significant abdominal pain. Due to suspicion for ulcers from chronic steroid use, General Surgery, Dr. Raphael was consulted and the patient had a scheduled upper endoscopy and patient started on medical management before the upper endoscopy. Upper endoscopy was performed on 11/03/2016, and the patient was found to have significant esophagitis and gastritis, suspected secondary to Candidal infection and the patient was started on the nystatin and Diflucan therapy. Later, the patient was found to have multiple episodes of flare of giant cell arteritis resulting in excruciating right-sided head and neck pain. The patient's steroids have been adjusted actively. Due to poor oral intake from severe abdominal discomfort, the patient showed significant fluctuation of his glucose level, and the patient's insulin regimen has been adjusted very actively. With the antifungal therapy, the patient started to have better control of the gastrointestinal (GI) symptoms. The patient started to tolerate the oral better. However, the patient continued to have significant orthostasis causing frequent falls, and the patient was followed with physical therapy. There was an incident where the patient became more medically stable and the patient's insulin pump was restarted, resulting in severe hypoglycemia and the insulin pump had to be stopped and the patient placed back on long-acting insulin and covered with sliding scale. The patient continued on aggressive IV hydration for patient's orthostasis and empiric antibiotic was already initiated. However, the patient's orthostasis continued to persist. On 12/01/2016, the patient decided to sign out against medical advice. risks and benefits explained to the patient and the patient understands that it is not safe for him to be discharged at the time. However, he did not want to stay, and he signed AMA documents. VITAL SIGNS ON THE DAY OF DISCHARGE: Showed a temperature 98.7, pulse is 74, respirations 18, blood pressure supine is 138/80, sitting is 100/62. Pulse oximetry 99% in room air. LABORATORY DATA ON THE DAY OF DISCHARGE: Showed WBC 8.7, hemoglobin 9.5, hematocrit 26.4, platelet count 254. Sodium is 138, potassium 3.7, chloride 102, carbon dioxide is 27. BUN is 16, creatinine 0.55, GFR is greater than 60, fasting glucose is 87, calcium 7.2, phosphorus 2.3. HIV test is negative. Microbiology: Blood culture on 10/31/2016 was negative for two sets. GI sample sent for pathology from the upper endoscopy biopsy showed abundant acute and chronic inflammation. IMAGING STUDIES: Chest x-ray on 10/31/2016 showed negative x-ray. CT of the neck with contrast on 11/03/2016 showed no neck mass or adenopathy. CT of the head without contrast on 11/10/2016 showed small vessel ischemic disease. Mild volume loss. MRI of the cervical spine without followed by with contrast on 11/15/2016 showed mild degenerative disc disease, most pronounced at C5-6 where there is diffuse disc bulging. Right-sided uncovertebral spurring noted at C3-4. Old appearing wedge compression deformity at the third thoracic vertebral body. MRI of the brain without followed by with contrast on 11/17/2016 showed diffuse moderate atrophy and small vessel change. No acute intracranial lesion. Pannus-like material is seen extending along the ventral aspect of the foramen magnum and the dorsal aspect of the left side of the clivus. No neural compression is seen. DISCHARGE MEDICATIONS: - Tylenol 1000 mg by mouth every 6 hours as needed - Eliquis with a tapering dose 10 mg by mouth twice a day for 7 days, then 5 mg by mouth twice a day - aspirin 81 mg by mouth daily - atorvastatin 40 mg by mouth daily - citalopram 40 mg by mouth daily - Flonase two sprays in the nasal twice a day as needed - insulin NovoLog before food - Levemir 30 units subcu every morning - Levemir 20 units subcu nightly - lisinopril 10 mg by mouth daily - Protonix 40 mg by mouth twice a day - K-Phos 500 mg by mouth twice a day - prednisone 60 mg by mouth daily - Maxalt 5 mg by mouth daily as needed for headaches DISCHARGE PLAN: Discontinue PICC line. Patient signed out AMA. Recommend diabetic diet as tolerated. Activity as tolerated. Fall precautions. Patient urged strongly to followup with director of programming in [place] within 1 week and PCP provider within 1 week. PROGNOSIS: Guarded. DISCHARGE TIME: Greater than 30 minutes. MTDD
--- NOTE | 2017-02-06 19:20 | IPN ---
DATE: 11/30/2016 SUBJECTIVE: The patient seen and examined in the room today. The patient eating breakfast comfortably without any epigastric or esophageal pain. Stated his neck pain has been under control. However, the patient still has intermittence of dizziness causing orthostatic hypotension. The patient has been working with physical therapy for the past few days. The patient is making good progress. OBJECTIVE: VITAL SIGNS: Temperature is 97.8, pulse 72, respirations 16, blood pressure is 142/72, pulse oximetry is 99% on room air. GENERAL: No sign of acute distress. Alert and oriented times three. HEENT: Normocephalic, atraumatic. Extraocular motors grossly intact. CARDIOVASCULAR: Positive S1, S2, regular rate. LUNGS: Clear to auscultation bilaterally. ABDOMEN: Soft, nontender, nondistended. Bowel sounds present. EXTREMITIES: Pedal edema of the right upper extremity. No lower extremity edema. No sign of cyanosis. LABORATORY DATA: WBC 8.7, hemoglobin 9.5, hematocrit 26.4, platelet count 254. Sodium is 138, potassium 3.7, chloride is 102, carbon dioxide 27, BUN 16, creatinine 0.55. GFR greater than 60. Fasting glucose 87. Calcium 7.2, phosphorous 2.3.
== END 2016-12-01 15:47 | disposition left against medical advice (07) | DRG 369 ==
LOC: M ED 13:04 → M ED INP 20:36 → M MSPAV 22:42 → M PCU 11-12 13:15 → M MSPAV 11-14 11:19
PROVIDERS: ADMIT Hospitalist; ATTEND Internal Medicine
PROC: 02HV33Z Insertion of Infusion Device into Superior Vena Cava, Percutaneous Approach (ICD-10-PCS; 2016-10-31)
PROC: 0DB68ZX Excision of Stomach, Via Natural or Artificial Opening Endoscopic, Diagnostic (ICD-10-PCS; 2016-11-03)
PROC: 0DB38ZX Excision of Lower Esophagus, Via Natural or Artificial Opening Endoscopic, Diagnostic (ICD-10-PCS; principal; 2016-11-03 07:55)
DX: B37.81 Candidal esophagitis (principal); N17.9 Acute kidney failure, unspecified; E87.2 Acidosis; I82.621 Acute embolism and thrombosis of deep veins of right upper extremity; T82.818A Embolism due to vascular prosthetic devices, implants and grafts, initial encounter; E10.43 Type 1 diabetes mellitus with diabetic autonomic (poly)neuropathy; K29.00 Acute gastritis without bleeding; M31.6 Other giant cell arteritis; I10 Essential (primary) hypertension; R53.1 Weakness; F32.9 Major depressive disorder, single episode, unspecified; Z79.01 Long term (current) use of anticoagulants; Z79.4 Long term (current) use of insulin; E78.5 Hyperlipidemia, unspecified; K21.9 Gastro-esophageal reflux disease without esophagitis; Z87.891 Personal history of nicotine dependence; G43.909 Migraine, unspecified, not intractable, without status migrainosus; I95.1 Orthostatic hypotension; Y82.9 Unspecified medical devices associated with adverse incidents

== ENCOUNTER → 2016-11-16 | Outpatient (CLI) | payer MEDICARE, MEDICAID ==
[~2016-11-16] MED LIST changes: +ADVO31MI2 XX; +ADVOKIT XX; +ADVOMIS4 XX; +ASPI81TA24 PO; +BUPIVACAINE HCL 0.25% 10 ML VIAL As Ordered ONE; +BUPIVACAINE HCL 0.25% 30 ML VIAL As Ordered ONE; +CAPT62TA PO; +CELE20TA PO; +CYCL5TAB PO; +DORZOL/TIMOL; +ELIQ5TAB PO; +GLUC1KIT INJ; +INSUDET SC; +INSUHUMDS SC; +KPHOS50TA PO; +LANS15CA PO; +LATA5OPD OU; +MIDO2.5T PO; +OMEP40CA2 PO; +PANT40TA2 PO; +PROT1TAB2 PO; +RIZA5TAB PO; +TRIAMCINOLONE ACETONIDE SUSP 40 MG/ML VIAL (J3301) As Ordered ONE; +TYLE500T78 PO
--- NOTE | 2016-11-19 23:29 | ECWPNPC ---
PATIENT NAME: SEBASTIEN GARCIA : 1960 GENDER: MALE VISIT DATE: 11/16/2016 DISCHARGE DATE: 11/16/161746 VISIT LOCKED DATE TIME: PHYSICIAN: SEGUNDO ARCOS RESOURCE: SEGUNDO ARCOS REASON FOR APPOINTMENT 1. TPI-INPATIENT HISTORY OF PRESENT ILLNESS HISTORY OF PRESENT ILLNESS: PAIN THE PATIENT DESCRIBES THE PAIN... FALL RISK SCREENING: SCREENING :NO FALLS IN THE PAST YEAR CURRENT MEDICATIONS TAKING GLUCOSAMINE , NOTES: PRE-ADMIT TAKING GLUCAGEN DIAGNOSTIC KIT , NOTES: PRE-ADMIT TAKING PREDNISONE 20 MG TABLET 3 TABLET ORALLY PER WRITTEN TAPER, NOTES: 11/16/16 0800 TAKING OMEPRAZOLE 20 MG CAPSULE DELAYED RELEASE 1 CAPSULES ORALLY ONCE A DAY, NOTES: 11/16/16 0800 TAKING HYDROCODONE-ACETAMINOPHEN 5-325 MG TABLET 1 TABLET NEEDED ORALLY EVERY 6 HRS (MDD;4), NOTES: PRE-ADMIT TAKING ZOFRAN ODT 4 MG TABLET DISPERSIBLE 1 TABLET ON THE TONGUE AND ALLOW TO DISSOLVE ORALLY EVERY 8 HRS, NOTES: 11/08/16 TAKING RIZATRIPTAN BENZOATE 5 MG TABLET 1 TABLET NEEDED ONE TIME ORALLY AT THE ONSET OF THE HEADACHE, MAY REPEAT ONCE IN 2 HOURS IF NOT IMPROVED (8 HEADACHES A MONTH), NOTES: 11/02/16 TAKING AMLODIPINE BESYLATE 5MG TABLET 1 TABLET ORALLY ONCE A DAY, NOTES: PRE-ADMIT NOT-TAKING VANCOMYCIN HCL 125 MG CAPSULE 1 CAPSULE ORALLY EVERY 6 HRS NOT-TAKING NOVOLOG 100 UNIT/ML SOLUTION SUBCUTANEOUS , NOTES: INSULIN PUMP NOT-TAKING METHOCARBAMOL 500 MG TABLET 1.5 TABLETS ORALLY EVERY 4 HRS NOT-TAKING FLONASE 50 MCG/ACT SUSPENSION 1 SPRAY IN EACH NOSTRIL NASALLY ONCE A DAY NOT-TAKING GLUCAGON EMERGENCY 1 MG KIT DIRECTED INJECTION DIRECTED NOT-TAKING COSOPT 22.3-6.8 MG/ML SOLUTION 1 DROP INTO AFFECTED EYE OPHTHALMIC TWICE A DAY NOT-TAKING LATANOPROST 0.005 % SOLUTION OPHTHALMIC NOT-TAKING ASPIRIN 81 MG TABLET CHEWABLE 1 TABLET ORALLY ONCE A DAY NOT-TAKING PREDNISONE 20 MG TABLET 3 TABLETS ORALLY ONCE A DAY NOT-TAKING BACTRIM 400-80 MG TABLET 2 TABLETS ORALLY ONCE A DAY NOT-TAKING LISINOPRIL 10 MG TABLET 1 TABLET ORALLY ONCE A DAY NOT-TAKING FISH OIL 600 MG CAPSULE 1 CAPSULE ORALLY ONCE A DAY NOT-TAKING HYDROCODONE-ACETAMINOPHEN 5-325 MG TABLET 1 TABLET NEEDED ORALLY EVERY 6 HRS (MDD:3) NOT-TAKING HYDROCODONE-ACETAMINOPHEN 5-325 MG TABLET 1 TABLET NEEDED ORALLY EVERY 6 HRS (MDD;2) NOT-TAKING CITALOPRAM HYDROBROMIDE 40 MG TABLET 1 TABLET ORALLY DAILY, NOTES: 40MG DAILY NOT-TAKING AMOXICILLIN-POT CLAVULANATE 875-125 MG TABLET 1 TABLET ORALLY EVERY 12 HRS NOT-TAKING ATORVASTATIN CALCIUM 40MG TABLET 1 TABLET ORALLY ONCE A DAY MEDICATION LIST REVIEWED AND RECONCILED WITH THE PATIENT PAST MEDICAL HISTORY DIABETES TYPE 1 (INSULIN PUMP) NEUROPATHY RETINOPATHY CIRCULATORY PROBLEMS TEMPORAL ARTERITIS PSORIASIS GLAUCOMA ALLERGIES N.K.D.A. SURGICAL HISTORY FATTY TUMOR REMOVAL RIGHT KNEE SURGERY RIGHT WRIST LEFT ROTATOR CUFF HOSPITALIZATION/MAJOR DIAGNOSTIC PROCEDURE SURGERY RELATED REVIEW OF SYSTEMS REVIEWED BY: PROVIDER: . CONSTITUTIONAL: ANY CHANGE IN YOUR MEDICAL CONDITION? NO . CHILLS NO . FEVER NO . INFECTION: DO YOU HAVE NEW INFECTIONS? NO . DO YOU HAVE HISTORY OF MRSA? NO . MUSCULOSKELETAL: ANY NEW PATTERNS OF PAIN OR NUMBNESS? YES, RIGHT NECK PAIN. NECK IS RED BILAT, PT STATES HIS NECK HAS BEEN RED, HIS PRIMARY RN IS AWARE, HE'S NOT SURE IF ATTENDING MD IS AWARE&NBSP;. GASTROENTEROLOGY: ANY NEW CHANGE IN BOWEL CONTROL? NO . GENITOURINARY: ANY NEW CHANGE IN BLADDER CONTROL? NO . IS THERE A CHANCE YOU COULD BE ? NO . HEMATOLOGY/LYMPH: DO YOU TAKE ANY BLOOD THINNERS? (FOR EXAMPLE- COUMADIN, PLAVIX, AGGRENOX, PLATEL, PRADAXA, OR XARELTO) NO . WHEN WAS YOUR LAST DOSE? DATE: TIME: . NEUROLOGY: HAVE YOU FALLEN IN THE PAST 6 MONTHS? YES, PT STATES HE FELL AT HOME, WAS ADMITTED, STAYED FOR A WHILE, WAS DISCHARGED HOME AND FELL X4 AT HOME FOR RE-ADMISSION. PT STATES HE FALLS FOR LOSS OF EQUILIBRIUM . ANY NEW EXTREMITY NUMBNESS OR WEAKNESS? NO . CARDIOLOGY: DO YOU HAVE A PACEMAKER OR DEFIBRILLATOR? NO . RESPIRATORY: HAVE YOU BEEN SICK IN THE PAST WEEK? NO . FEVER NO . FLU LIKE SYMPTOMS? NO . COUGH NO . INTEGUMENTARY: DO YOU HAVE ANY RASHES OR OPEN SORES? NO . ALLERGIC/IMMUNO: ARE YOU ALLERGIC TO SHELLFISH OR IV DYE? NO . ANY NEW ALLERGIES? NO . PSYCHIATRIC: DO YOU HAVE THOUGHTS OF HURTING YOURSELF OR SOMEONE ELSE? NO . ARE YOU ABUSED, NEGLECTED, OR IN AN UNSAFE ENVIRONMENT? NO . ENDOCRINOLOGY: ARE YOU DIABETIC? YES . OTHER: DO YOU NEED ANY PRESCRIPTIONS? NO . IF YES, PLEASE LIST: ____ . ANY NEW PROBLEMS WITH YOUR MEDICATIONS? NO . WHEN DID YOU LAST EAT? ____ . WHEN DID YOU LAST DRINK? ____ . WHAT DID YOU LAST DRINK? ____ . NAME OF PERSON DRIVING YOU HOME? ____ . DO YOU HAVE ANY OTHER QUESTIONS OR CONCERNS NO . VITAL SIGNS WT 150 LBS, HT 5'9", BMI 22.15 INDEX, BP 140/80 MM HG, HR 73 /MIN, RR 16 /MIN, TEMP 98.0 F, OXYGEN SAT % 99%, NA INITIALS SC 16:08. ASSESSMENTS MYALGIA - M79.1 (PRIMARY) PROCEDURES PN TRIGGER POINT INJECTION WITH STEROIDS PRE PROCEDURE DIAGNOSIS 1. MYALGIA 2. PAIN AT RIGHT NECK AREA POST PROCEDURE DIAGNOSIS 1. MYALGIA 2. PAIN AT RIGHT NECK AREA PROCEDURE TRIGGER POINT INJECTION AT RIGHT NECK AREA SURGEON DR. SEGUNDO ARCOS RESEARCH ANTHROPOLOGIST NONE ANESTHESIA LOCAL PRE PROCEDURE NOTE THE PATIENT HAS A HISTORY OF CHRONIC PAIN AT THE RIGHT NECK AREA. I EVALUATE THE PATIENT AND REVIEWED THE CHART. THERE IS EVIDENCE OF BANDS OF TISSUE WITH RESTRICTION OF MOVEMENT AND PRESENCE OF TRIGGER POINT AT THE AFFECTED AREA. I WENT OVER THE RISKS, ALTERNATIVES, AND BENEFITS ASSOCIATED WITH THIS PROCEDURE. THE PATIENT WOULD LIKE TO PROCEED AND GIVE CONSENT TO PERFORMED THE PROCEDURE. THE PATIENT DENIES UNEXPLAINABLE WEIGHT LOSS, FEVER, CHILLS, OR NEW CHANGES IN URINARY OR BOWEL CONTROL DESCRIPTION OF PROCEDURE THE PATIENT WAS BROUGHT TO THE PROCEDURE ROOM AND PLACED IN THE SITTING POSITION. THE AREA WAS CLEANED WITH ALCOHOL. THE PROCEDURE WAS DONE USING ASEPTIC STERILE TECHNIQUE. I CHECKED LATERALITY AND THE LEVEL WHERE THE PROCEDURE WAS GOING TO BE PERFORMED WITH THE PATIENT AND THE SUPPORTING STAFF AT THE MOMENT OF THE TIME OUT IN THE PROCEDURE ROOM. USING A 25-GAUGE NEEDLE, TRIGGER POINTS WERE INJECTED AT THE RIGHT NECK AREA WITH A TOTAL OF 40 ML OF BUPIVACAINE 0.25% AND KENALOG 40 MG. THERE WAS NO EVIDENCE OF BLOOD, PARESTHESIA OR CEREBROSPINAL FLUID DURING THE PROCEDURE. THE PATIENT WAS SENT TO THE RECOVERY ROOM. THE PATIENT WAS MOVING THE EXTREMITIES AND DOING WELL. THERE WAS NO COMPLICATION DURING THE PROCEDURE POST PROCEDURE NOTE THE PATIENT WILL BE SEEN IN A FOLLOW UP IN THE NEXT FEW WEEKS. INSTRUCTIONS WERE GIVEN, QUESTIONS WERE ANSWERED, AND THE PATIENT EXPRESSED UNDERSTANDING AND AGREES WITH THE PLAN. I, FIDENCIO PENN, DOCUMENTED THE ABOVE INFORMATION ACTING A SCRIBE FOR DR. ARCOS. I HAVE REVIEWED THE ABOVE DOCUMENT, WRITTEN BY FIDENCIO BONNER AND I VERIFY THAT IT IS ACCURATE PROCEDURE CODES 64719 INJ TRIGGER POINT 04/03 [facility] DISPOSITION & COMMUNICATION FOLLOW UP 3 WEEKS ELECTRONICALLY SIGNED BY SEGUNDO ARCOS MD ON 11/19/2016 AT 07:16 PM EDT DISCLAIMER : THIS IS A VISIT SUMMARY EXTRACTED FROM THE [facility] CHART. IT IS NOT A COPY OF THE [facility] PROGRESS NOTE. ERLIN
== END ==
LOC: M PAIN 14:30
PROVIDERS: ATTEND Anesthesiology
DX: G89.29 Other chronic pain (principal); M54.2 Cervicalgia; M79.1 Myalgia; E11.9 Type 2 diabetes mellitus without complications; Z79.4 Long term (current) use of insulin; Z79.52 Long term (current) use of systemic steroids; Z79.899 Other long term (current) drug therapy

== ENCOUNTER 2016-12-02 09:11 | Inpatient (IN) | payer MEDICARE, MEDICAID ==
[~2016-12-02] VITALS: Ht 175.3 cm; Wt 68.5 kg
[~2016-12-02 09:11] MED LIST changes: -ASPI81TA24 PO; -BUPIVACAINE HCL 0.25% 10 ML VIAL As Ordered ONE; -BUPIVACAINE HCL 0.25% 30 ML VIAL As Ordered ONE; -CAPT62TA PO; -CELE20TA PO; -CYCL5TAB PO; -MIDO2.5T PO; -PROT1TAB2 PO; -RIZA5TAB PO; -TRIAMCINOLONE ACETONIDE SUSP 40 MG/ML VIAL (J3301) As Ordered ONE
[2016-12-02] MEDS ORDERED: ACETAMINOPHEN TAB 650MG DOSE (2X325MG) PO ONE (09:45)
[2016-12-02] MEDS ORDERED: PIPERACILLIN/TAZOBACTAM SOD 3.375 GM in D5W MINI-BAG PLUS 50 ML IV ONE (10:15)
[2016-12-02] MEDS ORDERED: VANCOMYCIN HCL 1,000 MG, VIAL MATE ADAPTER 1 EACH in D5W 250 ML IV ONE (10:15)
[2016-12-02] MEDS ORDERED: LORazepam 2 MG/ML VIAL (J2060) IV STA (10:19)
[2016-12-02] MEDS ORDERED: NS 1,000 ML IV ONE (10:30)
--- NOTE | 2016-12-02 10:37 | REP ---
Clinical: Fever . Comparison: 10/31/2016 . Findings: The mediastinum and cardiac silhouette are stable and within normal limits for portable technique. The lung [place] are clear without acute consolidation, effusion, or pneumothorax. Skeletal structures are intact. Impression: No acute cardiopulmonary process appreciated. Signed by Sandeep Patino MD 12/02/2016 10:28 A
[2016-12-02 10:52] LABS: ABG BASE EXCESS 3.3 (-2.0-2.0); ABG PARTIAL PRESSURE CO2 32.4 mmHg (35.0-45.0); ABG PARTIAL PRESSURE O2 90.4 mmHg (75.0-100.0); ABG STANDARD HCO3 27.4 MEQ/L (22.0-26.0); ABG pH (ARTERIAL) 7.522 UNITS (7.350-7.450)
[2016-12-02 11:03] LABS: BASO % 0.2 % (0.0-1.0); EOS % 0.3 % (0.0-3.0); LARGE UNSTAINED CELL # 0.1 K/mm3 (0.0-0.4); LARGE UNSTAINED CELL % 0.4 % (0.0-4.0); LYMPH # 1.5 K/mm3 (1.5-4.5); LYMPH % 8.4 % (24.0-44.0); MEAN CORPUSCULAR HEMOGLOBIN 30.4 pg (27.0-33.0); MEAN CORPUSCULAR HGB CONC 34.8 g/dl (32.0-36.5); MEAN CORPUSCULAR VOLUME 87.3 fl (80.0-96.0); MONO # 0.6 K/mm3 (0.0-0.8); MONO % 3.6 % (0.0-5.0); NEUTROPHILS # 14.6 K/mm3 (1.8-7.7); NEUTROPHILS % 87.1 % (36.0-66.0); PLATELET COUNT, AUTOMATED 296 k/mm3 (150-450); RED CELL DISTRIBUTION WIDTH 14.7 % (11.5-14.5); WHITE BLOOD COUNT 16.7 K/mm3 (4.0-10.0)
[2016-12-02 11:28] LABS: ALBUMIN 2.4 GM/DL (3.2-5.2); ALBUMIN/GLOBULIN RATIO 0.92 (1.00-1.93); ALKALINE PHOSPHATASE 139 U/L (45-117); ALT/SGPT 66 U/L (12-78); ANION GAP 9 MEQ/L (8-16); AST/SGOT 26 U/L (15-37); BILIRUBIN,DIRECT 0.4 MG/DL (0.0-0.2); BILIRUBIN,TOTAL 1.2 MG/DL (0.2-1.0); BLOOD UREA NITROGEN 18 MG/DL (7-18); CALCIUM LEVEL 7.3 MG/DL (8.5-10.1); CARBON DIOXIDE LEVEL 27 MEQ/L (21-32); CHLORIDE LEVEL 97 MEQ/L (98-107); CREATININE FOR GFR 0.72 MG/DL (0.70-1.30); GLOMERULAR FILTRATION RATE > 60.0 (>56); GLUCOSE, FASTING 95 MG/DL (70-105); POTASSIUM SERUM 3.8 MEQ/L (3.5-5.1); SODIUM LEVEL 133 MEQ/L (136-145)
[2016-12-02 12:19] LABS: METHADONE URINE NEGATIVE (NEGATIVE)
[2016-12-02] MEDS ORDERED: ISOVUE-370 76% 100ML VIAL (Q9967) As Ordered ONE (12:25)
[2016-12-02] MEDS ORDERED: SODIUM CHLORIDE 0.9% 1000 ML IV ONE (13:15)
--- NOTE | 2016-12-02 13:28 | REP ---
Clinical: Line placement. Comparison: 12/02/2016 at 10:29 a.m. Findings: Left subclavian catheter with tip in the SVC. Mediastinum and cardiac silhouette are within normal limits and stable. Lung rebol[place]o demonstrate chronic changes without acute consolidation, effusion, or pneumothorax. Skeletal structures are intact. Impression: Left subclavian catheter with tip in the SVC. No pneumothorax. Signed by Sandeep Patino MD 12/02/2016 01:20 P
--- NOTE | 2016-12-02 14:19 | REP ---
Clinical: Altered mental status. Findings: Age-related atrophy and periventricular leukomalacia is appreciated. The ventricles and sulci are symmetric. Lee-white differentiation is maintained. There is no evidence for acute intracranial hemorrhage, mass/mass effect, pathology or infarction. No extra-axial fluid collection. Calvarium is intact. Paranasal sinuses and mastoid air cells are clear. Impression: Age related atrophy and periventricular leukomalacia. No acute intracranial hemorrhage, infarction, or mass/mass effect. Signed by Sandeep Patino MD 12/02/2016 02:10 P
--- NOTE | 2016-12-02 14:40 | REP ---
Clinical: Altered mental status with history of giant cell arteritis. Technique: Axial contrast enhanced images from the skull base to the vertex using 100 ml Isovue 370 intravenous contrast material with coronal and sagittal re-formations. Findings: Intracranial vasculature is essentially symmetric and normal. Andreafski of [place] appears intact. No obvious arteriovenous malformation, aneurysm, or obvious evidence for vasculopathy appreciated. No acute intracranial hemorrhage or mass/mass effect. No extra-axial collection. Calvarium is intact. Impression: Age-related changes. No obvious acute vascular abnormality. No obvious acute intracranial pathology. Signed by Sandeep Patino MD 12/02/2016 02:30 P
--- NOTE | 2016-12-02 14:44 | REP ---
Clinical: Altered mental status with history of giant cell enteritis. Technique: Axial contrast enhanced images from a the mid skull to the thoracic inlet imaged in the arterial phase of enhancement with coronal and sagittal re-formations. Findings: With the exception of mild to moderate partially calcified atheromatous plaque at the bilateral carotid bulbs and proximal internal carotid arteries, the vasculature appears relatively normal and symmetric. 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 No evidence for significant narrowing slash stenosis, aneurysm or vasculopathy by CT evaluation. The surrounding soft tissues are symmetric and normal. No obvious adenopathy. No fluid collection. No mass lesion. Osseous structures intact. Lung apices appear normal. Impression: Essentially normal CT angiogram of the neck. Mild to moderate atheromatous plaquing at the carotid bulbs. Signed by Sandeep Patino MD 12/02/2016 02:35 P
[2016-12-02] MEDS ORDERED: GLUCAGON FOR INJ 1 MG VIAL (J1610) SC PRN (15:45)
[2016-12-02] MEDS ORDERED: GLUCOSE 4 GM CHEW TABLET PO PRN (15:45)
[2016-12-02] MEDS ORDERED: INSUDET SC ×2 (15:52)
[2016-12-02] MEDS ORDERED: FLON1SPR (15:52)
[2016-12-02] MEDS ORDERED: ELIQ5TAB PO (15:52)
[2016-12-02] MEDS ORDERED: CITA40TA4 PO (15:52)
[2016-12-02] MEDS ORDERED: INSUH10VL SC (15:52)
[2016-12-02] MEDS ORDERED: ATOR40TA75 PO (15:52)
[2016-12-02] MEDS ORDERED: PROT1TAB2 PO (15:52)
[2016-12-02] MEDS ORDERED: ASPI81TA24 PO (15:52)
[2016-12-02] MEDS ORDERED: LISI10TA4 PO (15:52)
[2016-12-02] MEDS ORDERED: DORZ2SOL5 OU (15:52)
[2016-12-02] MEDS ORDERED: LATA5OPD OU (15:52)
[2016-12-02] MEDS ORDERED: KPHOS50TA PO (15:56)
[2016-12-02] MEDS ORDERED: PRED20TA PO (15:56)
[2016-12-02] MEDS ORDERED: RIZA5TAB PO (15:56)
[2016-12-02] MEDS ORDERED: FLUTICASONE PROP 0.05% NASAL SPRAY 16 GM (FLONASE) PRN (16:15)
[2016-12-02] MEDS: NS 1,000 ML IV SCH (16:30)
[2016-12-02] MEDS ORDERED: ONDANSETRON 4MG/2ML VIAL (J2405) IV PRN (16:30)
--- NOTE | 2016-12-02 17:25 | REP ---
Clinical: Cellulitis. Technique: AP, lateral, bilateral oblique views of the right elbow. Findings: Age-related degenerative changes are appreciated. Lateral view best demonstrates moderate diffuse soft tissue swelling and possible effusion. No acute fracture or dislocation. Vascular calcifications noted Impression: Soft tissue swelling and possible effusion. No acute fracture or dislocation. Signed by Sandeep Patino MD 12/02/2016 05:16 P
[2016-12-02] MEDS: methylPREDNISolone INJ 125 MG/2 ML VIAL (J2930) IV SCH (18:00)
[2016-12-02] MEDS: HumaLOG INSULIN (NovoLOG) PER UNIT SC SCH (18:00)
--- NOTE | 2016-12-02 18:09 | HPE ---
DATE OF ADMISSION: 12/02/2016 PRIMARY CARE PROVIDER: [facility] CHIEF COMPLAINT: Altered mental status, hypoglycemia. HISTORY OF PRESENT ILLNESS: This is a 56-year-old male patient with underlying medical history of giant cell arteritis, type 2 diabetes, orthostatic hypotension, hypertension, dyslipidemia, gastroesophageal reflux disease (GERD), depression, migraines, poorly controlled diabetes, poor compliance, who was discharged from the hospital yesterday with prolonged hospital stay for weakness, orthostatic hypotension, poor oral intake, and acute kidney injury. The patient was earlier found unresponsive in his house with fall. Subsequently, he was found to be hypoglycemic with a fingerstick by emergency medical services (EMS) of 65. Was brought to the emergency room, combative in the emergency department and given some Ativan, found to be febrile. The patient recently also has been diagnosed with right upper extremity deep vein thrombosis (DVT), on Eliquis. When asked if he is taking the medication, the patient denies taking any medication that was prescribed yesterday. The patient denies any chest pain, pressure or discomfort. The patient was found to be febrile and also noticed some right elbow erythema and swelling. The patient is able to move all four extremities. Further history not possible. During the previous hospital stay, the patient's sugar was poorly controlled with episode of hypoglycemia and hyperglycemia associated with poor intake and steroids. Furthermore, the patient was persistent orthostatic. In the emergency department, the patient reported right sided head pain, which was present before as well, secondary to giant cell arteritis. Further history not possible. ALLERGIES: No known drug allergies. PAST MEDICAL HISTORY: 1. Deep vein thrombosis (DVT) of right upper extremity. 2. Giant cell arteritis. 3. Type 1 diabetes. 4. Hypertension. 5. Dyslipidemia. 6. Gastroesophageal reflux disease (GERD). 7. Orthostatic hypotension. 8. Depression. 9. Migraines. PAST SURGICAL HISTORY: None. FAMILY HISTORY: Unable to obtain. SOCIAL HISTORY: Quit smoking 10 to 15 years ago. No alcohol use. No illicit drug use. REVIEW OF SYSTEMS: Limited secondary to the patient's mental status but reported right sided head and neck pain and found to be febrile. All other review of systems are negative. HOME MEDICATIONS: - acetaminophen 1000 mg by mouth every 6 hours as needed - Eliquis 5 mg by mouth twice a day - aspirin 81 mg by mouth daily - Lipitor 40 mg by mouth daily - citalopram 40 mg by mouth daily - Flonase nasal twice a day as needed - NovoLog insulin 2 units subcutaneous before meals in addition to scale Levemir 30 units in the morning, 20 units at night - Lisinopril 10 mg by mouth daily - Protonix 40 mg by mouth twice a day - potassium phosphate 500 mg by mouth twice a day - prednisone 60 mg by mouth daily - rizatriptan 5 mg by mouth daily as needed PHYSICAL EXAMINATION: VITAL SIGNS: Maximum temperature (t-max) 100.4, current temperature 97, pulse 86, respirations 20, blood pressure 126/60, pulse oximetry 98% on room air. GENERAL: The patient is arousable and in no acute distress. Withdraws to pain. Able to answer questions. Alert and oriented times two. HEENT: Normocephalic with petechiae on the right side of the patient's neck. PULMONARY: Bilaterally clear to auscultation. CARDIAC: Regular rate and rhythm. 2/6 systolic murmur ABDOMEN: Soft, nontender. Positive bowel sounds. EXTREMITIES: No clubbing, cyanosis or edema. Right upper elbow with erythema and mild swelling compared to the other. Evidence of old pressure ulcers. Left fifth toe with eschar. NEUROLOGIC: Withdraws from pain in bilateral upper and lower extremities. Cranial nerves II through XII grossly intact. Not following much commands but arousable. LABORATORY DATA: WBC 16.7, hemoglobin and hematocrit 9.9/28.4, platelets 296, ESR 32. Sodium 133, potassium 3.8, chloride 97, bicarbonate 27, BUN 18, creatinine 0.7, lactic acid negative, A1/c 8.7, ammonia 14, TSH 1.68. EKG shows sinus rhythm of 79, T wave inversion in V1. ASSESSMENT AND PLAN: This is a 56-year-old male patient with underlying medical history of giant cell arteritis, type 1 diabetes poorly controlled, hypertension, dyslipidemia, gastroesophageal reflux disease (GERD), depression, migraines, with right upper extremity deep vein thrombosis (DVT), recently signed out against medical advice from the hospital yesterday, poorly compliant, was found with hypoglycemia with altered mental status and fever with leukocytosis. 1. Altered mental status/encephalopathy, multifactorial, secondary to underlying infection with fevers versus hypoglycemia. We will follow fingersticks every 2 hours. Treatment for infection, as mentioned below. CT scan and angio of the brain appreciated and CT angio of the neck appreciated. We will get MRI and EEG, neuro checks. Ammonia appreciated to be negative. 2. Giant cell arteritis. The patient is likely not compliant with medication. We will increase steroid to Solu-Medrol 60 mg twice a day. We will continue to monitor ESR and C-reactive protein. 3. Fevers and leukocytosis secondary to possibly right elbow cellulitis. We will followup x-ray of the elbow. ESR and C-reactive protein appreciated. Followup cultures. Antibiotics with vancomycin and Zosyn. 4. Right upper extremity deep vein thrombosis (DVT). We will obtain a Doppler. The patient is poorly compliant with medication. We will place the patient on Lovenox prior to further findings and prior to further plan. 5. Elevated bilirubin, likely reactive. We will follow right upper quadrant abdominal ultrasound. 6. Hypoglycemia with diabetes. Holding long-acting insulin. IV fluids. Fingersticks every 2 hours. Insulin every 6 hours. The patient is currently nothing by mouth. 7. Orthostatic hypotension history. We will hold blood pressure medications. Followup orthostatic vital signs. IV fluids for hydration. 8. Dyslipidemia. Continue current medications. 9. Gastroesophageal reflux disease (GERD). Continue current proton pump inhibitor. 10. Depression. Continue current medications. 11. Migraine headaches. Continue medication as needed. 12. DVT prophylaxis. The patient is on treatment for DVT. DISPOSITION: Pending clinical improvement. The patient is currently nothing by mouth. We will advance the diet as the patient's mental status is improved. The patient was given Ativan two doses in the emergency room therefore seems a bit lethargic. We will further assess. Physical therapy (PT) and occupational therapy (OT). Patient and family services (PFS) consulted for potential placement.
[2016-12-02] MEDS: PIPERACILLIN/TAZOBACTAM SOD 3.375 GM in D5W MINI-BAG PLUS 50 ML IV SCH (18:19)
--- NOTE | 2016-12-02 18:34 | PHACANCOPD ---
PHARMACY VANCOMYCIN DOSING Pt Demographics Demographics Patient Age:56 , Weight:69.100 , Gender: male Adjusted Body Weight Date: 12/02/16, Adjusted Body Weight: [NA] Kg Events Past 24 Hours Events Past 24 Hours: YES: Elevation in WBC, NO: Dialysis, Diuretic Therapy, Change in CrCl, Fever, Pending Diagnostics, Pending Procedures, Other Vancomycin Vancomycin indication: R elbow cellulitis Vancomycin Target Ranges: 15-20 mcg/ml Vancomycin Load Y/N: Yes Load Dose Date Time Vancomycin Load Dose: 1000mg Date: 12/02 Time: ~noon Vancomycin Dose Date: 12/02/16. Current Vancomycin Dose: [1g IV q12h @20] Intermittent Dosing?: No Labs Labs Item Value Date Time White Blood Count 16.7 K/mm3 H 12/02/16 1048 Erythrocyte Sedimentation Rate 32 mm/hr H 12/02/16 1210 Creatinine 0.72 MG/DL 12/02/16 1048 C-Reactive Protein, Quantitative 3.99 MG/DL H 12/02/16 1048 Micro Microbiology 12/02/16 Blood Culture, Received Pending 12/02/16 Blood Culture, Received Pending 12/02/16 Urine Culture, Received Pending 12/02/16 Wound Culture, Received Pending Creatinine Clearance Date:12/02/16. Creatinine Clearance: [>100 ml/min]. Assessment and Plan Maintaining Current Dose?: Yes Reason for dose change: No Dose Change Pharmacist Note Pharmacist Note Date: 12/02/16. Pharmacist note: pt has been readmitted after leaving AMA yesterday from a 1 month admission. Pt has a draining wound on his right elbow for which he has been started on Zosyn and Vancomycin. Of note, the pt did not receive any antibiotics in the past month, he was however treated with fluconazole (IV --> PO) for 6 days (11/07 - 11/12). Pt does not have any notable culture Hx, nor has he been on vancomycin at our facility in the past. He received 1g IV vancomycin in the ER late this morning, and I have started him on 1g q12h dosing tonight @20:00. Wound, blood and urine cultures are pending. I will continue to monitor and order a trough as necessary. Yunior Finney Pharm.D. Dec 02, 2016 18:34
[2016-12-02] MEDS ORDERED: hydrALAZINE INJ 20 MG/ML VIAL IV PRN (19:00)
--- NOTE | 2016-12-02 19:39 | ECGEPIP ---
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
[2016-12-02 21:49] VITALS: BP 177/81
[2016-12-02 22:23] VITALS: BP 164/72
[2016-12-03] MEDS: NS 1,000 ML IV SCH ×3 (00:03→23:01)
[2016-12-03] MEDS: VANCOMYCIN HCL 1,000 MG, VIAL MATE ADAPTER 1 EACH in D5W 250 ML IV SCH ×4 (00:03→20:30)
[2016-12-03] MEDS: ENOXAPARIN 80 MG/0.8 ML SYRINGE (J1650) SC SCH ×3 (00:04→20:30)
[2016-12-03] MEDS: PANTOPRAZOLE 40MG TAB (PROTONIX) PO SCH ×3 (00:04→20:30)
[2016-12-03] MEDS: SENOKOT S TAB PO SCH ×3 (00:04→20:30)
[2016-12-03] MEDS: COSOPT OCUMETER PLUS 10ML (DORZOLAMIDE/TIMOLOL) OU SCH ×3 (00:04→20:30)
[2016-12-03] MEDS: LATANOPROST 0.005% OPHTH SOLN 2.5 ML OU SCH ×2 (00:05→20:30)
[2016-12-03] MEDS: LISINOPRIL 10 MG TAB PO SCH ×2 (00:07→08:28)
[2016-12-03 00:15] VITALS: BP 166/80
[2016-12-03] MEDS: HumaLOG INSULIN (NovoLOG) PER UNIT SC SCH ×5 (00:16→20:30)
[2016-12-03] MEDS: PIPERACILLIN/TAZOBACTAM SOD 3.375 GM in D5W MINI-BAG PLUS 50 ML IV SCH ×5 (02:09→23:01)
[2016-12-03 05:21] LABS: MEAN CORPUSCULAR HEMOGLOBIN 30.7 pg (27.0-33.0); MEAN CORPUSCULAR HGB CONC 34.1 g/dl (32.0-36.5); MEAN CORPUSCULAR VOLUME 89.9 fl (80.0-96.0); RED CELL DISTRIBUTION WIDTH 14.8 % (11.5-14.5); WHITE BLOOD COUNT 8.6 K/mm3 (4.0-10.0)
[2016-12-03 05:22] VITALS: BP_SYST 102; BP_SYST 156; BP_DIAS 56; BP_DIAS 78
[2016-12-03 05:43] LABS: ALBUMIN 2.1 GM/DL (3.2-5.2); ALBUMIN/GLOBULIN RATIO 0.78 (1.00-1.93); ALKALINE PHOSPHATASE 127 U/L (45-117); ALT/SGPT 56 U/L (12-78); ANION GAP 13 MEQ/L (8-16); AST/SGOT 30 U/L (15-37); BILIRUBIN,TOTAL 0.8 MG/DL (0.2-1.0); BLOOD UREA NITROGEN 16 MG/DL (7-18); CALCIUM LEVEL 7.4 MG/DL (8.5-10.1); CARBON DIOXIDE LEVEL 23 MEQ/L (21-32); CHLORIDE LEVEL 102 MEQ/L (98-107); CREATININE FOR GFR 0.68 MG/DL (0.70-1.30); GLOMERULAR FILTRATION RATE > 60.0 (>56); GLUCOSE, FASTING 180 MG/DL (70-105); MAGNESIUM LEVEL 1.9 MG/DL (1.8-2.4); POTASSIUM SERUM 3.6 MEQ/L (3.5-5.1); SODIUM LEVEL 138 MEQ/L (136-145); TOTAL PROTEIN 4.8 GM/DL (6.4-8.2)
[2016-12-03] MEDS ORDERED: KETOROLAC 30 MG/ML VIAL (J1885) IV ONE (05:45)
[2016-12-03] MEDS: methylPREDNISolone INJ 125 MG/2 ML VIAL (J2930) IV SCH ×2 (05:46→17:02)
--- NOTE | 2016-12-03 06:39 | RO ---
DATE OF PROCEDURE: 12/02/2016 PREPROCEDURE DIAGNOSIS: Poor venous access and altered mental status. POSTOPERATIVE DIAGNOSIS: Altered mental status and poor venous access. PROCEDURE PERFORMED: Emergent triple lumen central line left subclavian. SURGEON: Dr. Dina Malave HOSPITAL COORDINATOR: the nurse Claribel ANESTHESIA: 1% local lidocaine. SEDATION: None. VENTILATION: Room air. ESTIMATED BLOOD LOSS: 10 mL. HISTORY: Emergent left subclavian triple lumen central line was placed because the patient had poor venous access with altered mental status and history of giant cell arteritis. Need to get a CT angio of the neck and head to look for occlusive disease. Furthermore, the patient had significant pain with erythematous skin changes on the right side of patient's neck, which prompted the patient to bend the neck towards the left side making IJ a bit more difficult, therefore, subclavian was attempted. The patient was placed in the supine position. The site was cleaned with ChloraPrep and covered in the usual manner. Inferior clavicular approach was used. Superficial 1% lidocaine was given. Needle was inserted at the inferior aspect of the clavicular angle towards the sternum notch. A flash of blood was obtained. A wire was inserted through the needle and the needle was removed. The skin was nicked and the site was dilated. Triple lumen central line was inserted via Seldinger technique and secured with clamps and stitches. All three ports were flushed. Line position was confirmed with x-ray which showed negative pneumothorax. The patient tolerated the procedure with no complications.
[2016-12-03 08:00] VITALS: BP 148/70
[2016-12-03] MEDS: ASPIRIN 81 MG ENTERIC TAB PO SCH (08:26)
[2016-12-03] MEDS: ATORVASTATIN 20 MG TAB PO SCH (08:26)
[2016-12-03] MEDS ORDERED: GLUCAGON FOR INJ 1 MG VIAL (J1610) SC PRN (09:30)
[2016-12-03] MEDS ORDERED: GLUCOSE 4 GM CHEW TABLET PO PRN (09:30)
[2016-12-03] MEDS ORDERED: DEXTROSE 50% 50 ML SYRINGE IV PRN (09:30)
[2016-12-03 12:00] VITALS: BP 128/63
--- NOTE | 2016-12-03 13:34 | IPN ---
DATE: 12/03/2016 56-year-old male seen at bedside resting comfortably. Feels that his headache has improved. He denies chest pain, shortness of breath, productive sputum, cough or hemoptysis. OBJECTIVE: Temperature 98.7, pulse 94, respiratory rate 16, blood pressure 128/63, SpO2 is 100% on room air. GENERAL: The patient appears to be in no acute distress. He is pleasant. HEENT: Unremarkable. LUNGS: Clear. HEART: Regular rate and rhythm. ABDOMEN: Soft. EXTREMITIES: No edema or calf tenderness. LABORATORY DATA: White count is 8.6, hemoglobin 9, platelets 235,000, sodium 138, potassium 3.6, chloride 102, bicarb 23, anion gap 13, BUN 16, creatinine 0.68, glucose 180, hemoglobin A1c 8.7, AST 30, ALT 56, alkaline phosphatase 127, ammonia is 14. ASSESSMENT/PLAN: 1. Altered mental status, metabolic encephalopathy, resolved. CT angio of neck no obvious acute vascular abnormality. No obvious acute intracranial pathology. X-ray of the right elbow soft tissue swelling, possible effusion. No acute fracture noted. 2. Giant cell arteritis by history. Continue with the steroids. Monitor sed rate and CRP. Will check again tomorrow. 3. Fever and leukocytosis, possible early cellulitis. Continue with Zosyn and vancomycin. Cultures are pending. 4. Right upper extremity deep vein thrombosis (DVT). Doppler is pending. Currently on Lovenox. 5. Elevated bilirubin, likely reactive. Will await the abdominal ultrasound. 6. Hyperglycemia with diabetes. Tolerating meals. Continue fingersticks before meals and at bedtime with sliding scale coverage. 7. Orthostatic hypotension resolved. 8. Dyslipidemia. Continue current medicines. 9. Gastroesophageal reflux disease (GERD). Stable on proton pump inhibitor (PPI). 10. Depression, stable. 11. Migraine headaches. Continue medications as needed. 12. Deep vein thrombosis (DVT) prophylaxis. Will continue to treat as outlined above with known history of right upper extremity DVT. DISPOSITION: Prognosis is guarded. Continue with physical therapy, occupational therapy. Patient and family services (PFS) consult.
[2016-12-03 16:00] VITALS: BP 159/77
--- NOTE | 2016-12-03 18:21 | REP ---
Clinical: Right arm and neck pain. Technique: Real time munoz scale and color Doppler evaluation using linear high frequency transducer. Comparison: 11/25/2016. Findings: Ultrasound examination of the right upper extremity including jugular, subclavian, axillary, brachial, cephalic and basilic veins demonstrates thrombus within the subclavian, axillary, brachial and basilic veins which may be decreased when compared to prior examination. Impression: Continued evidence for thrombus involving the right subclavian through brachial and basilic veins which may be slightly decreased when compared to prior examination. Signed by Sandeep Patino MD 12/03/2016 06:13 P
--- NOTE | 2016-12-03 18:23 | REP ---
Clinical: Elevated bilirubin and right upper quadrant abdominal pain. Technique: Lee scale ultrasound using curved array transducer. Findings: The liver and pancreas are normal in contour, size, and echogenicity without focal hepatic or pancreatic lesions identified. The gallbladder is normal without gallstones, wall thickening or pericholecystic fluid. No biliary ductal dilatation is appreciated, and the common bile duct measures 2.4 mm diameter. The right kidney is normal in reniform shape without hydronephrosis and measures 10.2 x 5.3 x 4.8 cm. No ascites. Visualized portions of the abdominal aorta normal. Impression: Normal right upper quadrant and gallbladder abdominal ultrasound. Signed by Sandeep Patino MD 12/03/2016 06:14 P
[2016-12-03] MEDS ORDERED: HumaLOG INSULIN (NovoLOG) PER UNIT SC ONE (18:45)
[2016-12-03 20:00] VITALS: BP 93/39
[2016-12-03] MEDS ORDERED: SODIUM CHLORIDE 0.9% INJ 10 ML SYR IV PRN (23:30)
[2016-12-04] VITALS (8 sets, daily range): BP systolic 105–181; BP diastolic 53–86
[2016-12-04] MEDS: methylPREDNISolone INJ 125 MG/2 ML VIAL (J2930) IV SCH ×2 (05:21→17:16)
[2016-12-04] MEDS: PIPERACILLIN/TAZOBACTAM SOD 3.375 GM in D5W MINI-BAG PLUS 50 ML IV SCH (05:21)
[2016-12-04] MEDS: SODIUM CHLORIDE 0.9% INJ 10 ML SYR IV SCH ×3 (06:38→21:09)
[2016-12-04 06:53] LABS: MEAN CORPUSCULAR HEMOGLOBIN 31.1 pg (27.0-33.0); MEAN CORPUSCULAR HGB CONC 34.6 g/dl (32.0-36.5); RED CELL DISTRIBUTION WIDTH 14.6 % (11.5-14.5); WHITE BLOOD COUNT 9.7 K/mm3 (4.0-10.0)
[2016-12-04] MEDS: HumaLOG INSULIN (NovoLOG) PER UNIT SC SCH ×4 (07:03→21:00)
[2016-12-04 07:05] LABS: ALKALINE PHOSPHATASE 121 U/L (45-117); ALT/SGPT 51 U/L (12-78); ANION GAP 10 MEQ/L (8-16); AST/SGOT 15 U/L (15-37); BILIRUBIN,TOTAL 0.9 MG/DL (0.2-1.0); BLOOD UREA NITROGEN 17 MG/DL (7-18); CALCIUM LEVEL 7.3 MG/DL (8.5-10.1); CARBON DIOXIDE LEVEL 25 MEQ/L (21-32); CHLORIDE LEVEL 98 MEQ/L (98-107); CREATININE FOR GFR 0.77 MG/DL (0.70-1.30); GLOMERULAR FILTRATION RATE > 60.0 (>56); GLUCOSE, FASTING 418 MG/DL (70-105); MAGNESIUM LEVEL 1.9 MG/DL (1.8-2.4); POTASSIUM SERUM 3.7 MEQ/L (3.5-5.1); SODIUM LEVEL 133 MEQ/L (136-145); TOTAL PROTEIN 4.5 GM/DL (6.4-8.2)
[2016-12-04] MEDS: RIZATRIPTAN BENZOATE 10 MG TAB PO PRN (07:55)
[2016-12-04] MEDS: SENOKOT S TAB PO SCH ×2 (09:00→21:00)
[2016-12-04] MEDS: LEVEMIR (INSULIN DETEMIR) 1 UNITS/0.01ML SC SCH ×2 (09:00→21:00)
[2016-12-04] MEDS: ASPIRIN 81 MG ENTERIC TAB PO SCH (09:17)
[2016-12-04] MEDS: LISINOPRIL 10 MG TAB PO SCH (09:17)
[2016-12-04] MEDS: APIXABAN 5 MG TAB (ELIQUIS) PO SCH ×2 (09:17→21:00)
[2016-12-04] MEDS: PANTOPRAZOLE 40MG TAB (PROTONIX) PO SCH ×2 (09:17→21:00)
[2016-12-04] MEDS: VANCOMYCIN HCL 1,000 MG, VIAL MATE ADAPTER 1 EACH in D5W 250 ML IV SCH (09:17)
[2016-12-04] MEDS: ATORVASTATIN 20 MG TAB PO SCH (09:18)
[2016-12-04] MEDS: COSOPT OCUMETER PLUS 10ML (DORZOLAMIDE/TIMOLOL) OU SCH ×2 (09:19→21:00)
--- NOTE | 2016-12-04 09:21 | IPN ---
DATE OF SERVICE: 12/04/2016 A 56-year-old male seen at bedside. No overnight issues reported. He is resting comfortably, but his blood sugars have been elevated this morning. We will attempt to resume his twice daily Levemir dosing. He denies chest pain, nausea, vomiting. OBJECTIVE: Temperature is 96.6, pulse 93, respiratory rate is 20, blood pressure (BP) 130/56, SpO2 is 97% on room air. General: The patient appears to be in no acute distress. Is alert and oriented. HEENT: Head is atraumatic, normocephalic. Eyes: Pupils equal, round, and reactive to light and accommodation. Throat clear. Lungs: Clear. Heart: Regular rate and rhythm. Abdomen: Soft. Extremities: No edema. No calf tenderness. LABORATORY DATA: White count 9.7, hemoglobin8.4, platelets 276. Sodium 133, potassium 3.7, chloride 99, bicarbonate 25, anion gap 10, BUN 17, creatinine 0.77, glucose 418, total bilirubin is 0.9, AST 15, ALT 51, alkaline phosphatase 121, albumin 2.0. Has wound culture positive for methicillin-resistant Staphylococcus aureus (MRSA). Blood cultures are negative. Urine culture negative. ASSESSMENT AND PLAN: 1. Altered mental status with metabolic cephalopathy. Returned to baseline. He does have swelling in soft tissue of the right elbow with wound culture positive for MRSA. Will treat this with change in antibiotics. 2. Methicillin-resistant Staphylococcus aureus (MRSA) involving soft tissue infection of the right elbow and cellulitis with small wound. Will get him switched into oral doxycycline. 3. Giant cell arteritis. I will return him to oral prednisone. Continue to monitor. He does appear to be doing well otherwise. His back pain appears to be improved. 4. Right upper extremity deep venous thrombosis (DVT) indicated in his right subclavian through brachial and cephalic veins. May be slightly decreased when compared to prior examination. At any rate, the patient has had a history of being poorly compliant, but we will get him to resume his Eliquis. Will discontinue his weight-based Lovenox. I think he has got a better chance of being compliant with oral medication than injectable Lovenox, and the Eliquis may be a better choice as compared to Coumadin, which would be continued monitoring. Will want to make sure he is situated through Public Health with before he is discharged. 5. Fever, leukocytosis, early cellulitis as indicated above with methicillin-resistant Staphylococcus aureus (MRSA). Will discontinue the intravenous (IV) antibiotic and start him on oral doxycycline. 6. Hyperbilirubinemia. Abdominal ultrasound unremarkable and bilirubin trended downward. 7. Hyperglycemia with diabetes. Tolerating meals. Continue fingerstick sliding scale coverage and will add on Levemir twice a day according to his home dosage. Again, will switch him from Solu-Medrol to oral prednisone to see if this makes a difference for him. 8. Orthostatic hypotension, resolved. 9. Dyslipidemia. Continue current statin therapy. 10. Gastroesophageal reflux disease (GERD). On proton pump inhibitor (PPI). 11. Depression, stable. 12. Migraines, stable. 13. Deep venous thrombosis (DVT) prophylaxis. Will resume Eliquis. Discontinue weight-based Lovenox. DISPOSITION: Continue with physical therapy. Patient and family services (PFS) consult. Will plan on downgrading to the general medical antunez today.
[2016-12-04] MEDS: CitaloPRAM (CeleXA) 20 MG TAB PO SCH (09:25)
[2016-12-04] MEDS: DOXYCYCLINE HYCLATE 100 MG TAB PO SCH ×2 (12:20→21:00)
[2016-12-04] MEDS: LATANOPROST 0.005% OPHTH SOLN 2.5 ML OU SCH (21:00)
[2016-12-05] MEDS: SODIUM CHLORIDE 0.9% INJ 10 ML SYR IV SCH ×3 (05:37→22:21)
[2016-12-05] MEDS: methylPREDNISolone INJ 125 MG/2 ML VIAL (J2930) IV SCH (05:38)
[2016-12-05 06:57] VITALS: BP 125/60
[2016-12-05 06:59] LABS: MEAN CORPUSCULAR HEMOGLOBIN 30.9 pg (27.0-33.0); MEAN CORPUSCULAR HGB CONC 34.9 g/dl (32.0-36.5); MEAN CORPUSCULAR VOLUME 88.5 fl (80.0-96.0); RED CELL DISTRIBUTION WIDTH 14.7 % (11.5-14.5); WHITE BLOOD COUNT 8.7 K/mm3 (4.0-10.0)
[2016-12-05 07:18] LABS: ALBUMIN 2.3 GM/DL (3.2-5.2); ALBUMIN/GLOBULIN RATIO 0.82 (1.00-1.93); ALKALINE PHOSPHATASE 121 U/L (45-117); ALT/SGPT 54 U/L (12-78); ANION GAP 9 MEQ/L (8-16); AST/SGOT 17 U/L (15-37); BILIRUBIN,TOTAL 0.6 MG/DL (0.2-1.0); BLOOD UREA NITROGEN 15 MG/DL (7-18); CALCIUM LEVEL 7.8 MG/DL (8.5-10.1); CARBON DIOXIDE LEVEL 29 MEQ/L (21-32); CHLORIDE LEVEL 101 MEQ/L (98-107); CREATININE FOR GFR 0.64 MG/DL (0.70-1.30); GLOMERULAR FILTRATION RATE > 60.0 (>56); GLUCOSE, FASTING 63 MG/DL (70-105); MAGNESIUM LEVEL 2.1 MG/DL (1.8-2.4); POTASSIUM SERUM 3.3 MEQ/L (3.5-5.1); SODIUM LEVEL 139 MEQ/L (136-145); TOTAL PROTEIN 5.1 GM/DL (6.4-8.2)
[2016-12-05] MEDS: HumaLOG INSULIN (NovoLOG) PER UNIT SC SCH ×4 (07:30→22:22)
[2016-12-05 08:30] VITALS: BP 86/53
[2016-12-05] MEDS: SENOKOT S TAB PO SCH ×2 (08:37→22:21)
[2016-12-05] MEDS: PANTOPRAZOLE 40MG TAB (PROTONIX) PO SCH ×2 (08:38→22:21)
[2016-12-05] MEDS: ATORVASTATIN 20 MG TAB PO SCH (08:38)
[2016-12-05] MEDS: APIXABAN 5 MG TAB (ELIQUIS) PO SCH ×2 (08:38→22:21)
[2016-12-05] MEDS: DOXYCYCLINE HYCLATE 100 MG TAB PO SCH ×2 (08:38→22:21)
[2016-12-05] MEDS: COSOPT OCUMETER PLUS 10ML (DORZOLAMIDE/TIMOLOL) OU SCH ×2 (08:38→22:22)
[2016-12-05] MEDS: CitaloPRAM (CeleXA) 20 MG TAB PO SCH (08:38)
[2016-12-05] MEDS: ASPIRIN 81 MG ENTERIC TAB PO SCH (08:38)
[2016-12-05] MEDS: LISINOPRIL 10 MG TAB PO SCH (09:00)
[2016-12-05] MEDS: LEVEMIR (INSULIN DETEMIR) 1 UNITS/0.01ML SC SCH ×2 (10:05→22:22)
[2016-12-05 14:00] VITALS: BP_SYST 104; BP_SYST 146; BP_SYST 179; BP_DIAS 61; BP_DIAS 75; BP_DIAS 89
--- NOTE | 2016-12-05 14:16 | IPN ---
DATE: 12/05/2016 SUBJECTIVE: Today, the patient tells me that he is feeling well. He denies any lightheadedness or dizziness when standing. He does tell me that while he was coming back from the bathroom earlier this morning he did have some weakness and he gradually was helped to the ground with the nursing program coordinator. He reportedly did hit his head slightly, the frontal part of the scalp, but at this time he denies any complaints. He denies any prodromal symptoms with that episode. He denies chest pain or shortness of breath, fever, chills, nausea, vomiting or diarrhea. OBJECTIVE: VITAL SIGNS: Temperature 98.6. Pulse 70. Respiratory rate 18. Blood pressure 125/60. Oxygen saturation 98% on room air. GENERAL: He is a disheveled middle aged man who appears older than stated age. He is lying on his right side sleeping comfortably. He is easily arousable to verbal stimuli. He does not appear to be in any acute distress. Once awake, he is alert and oriented times three. HEENT: He has a chronic dysconjugate gaze. Moist mucous membranes. No elevation of CVP. CARDIOVASCULAR: S1, S2, regular. RESPIRATORY EXAM: Clear. ABDOMINAL EXAM: Benign. EXTREMITIES: No clubbing, cyanosis or edema. LABORATORY STUDIES: WBC 8.7, hemoglobin 9.8 and platelet count 329. Chemistry panel with sodium 139, potassium 3.3, chloride 101, bicarbonate 29, BUN 15, creatinine 0.6. CRP 2.5 down from 10.2 two days earlier. MICROBIOLOGY: The wound culture is positive for coag negative staph, otherwise negative. Urine culture is negative. IMAGING: The patient had an abdominal ultrasound for an elevated bilirubin that was normal right upper quadrant, no thickening of the gallbladder and liver. She also had a Duplex for continued evidence of deep vein thrombosis involving the right subclavian through brachial and basilic vein. He had an elbow x-ray that revealed soft tissue swelling and possible effusion, no acute fracture or dislocation. He also had a CT angiography that revealed age related changes, no obvious acute vascular abnormality, no obvious acute intracranial pathology. He also had a CT of the neck that was a normal angiogram, mild to moderate atheromatous plaquing at the carotid bulbs. He also had a chest x-ray that revealed left subclavian catheter tip in the superior vena cava (SVC), no pneumothorax. He also had a CT scan of the head with age related atrophy. ASSESSMENT AND PLAN: This is a 56-year-old with metabolic encephalopathy. PROBLEMS: 1. Metabolic encephalopathy, resolved. Possibly related to cellulitis of the right elbow. He has been switched to doxycycline. Today is day 3 of 10 of antibiotics. 2. Giant cell arteritis. We will switch him back to his home prednisone. He appears to be doing quite well. 3. Right lower extremity DVT. He has been restarted on Eliquis per Dr. Tucker. At the present time he does have a PICC in place in his left upper extremity. 4. Fever and leukocytosis, likely related to cellulitis as outlined above. Appears to be resolving at this time. 5. Hyperbilirubinemia. Normal now or resolved. 6. Diabetes. He is on insulin. He is a brittle diabetic. We will be tapering his steroids and monitor how this affects his finger sticks very closely. He is normally on an insulin pump at home, 7. Orthostatic hypotension. He may have some autonomic neuropathy related to his uncontrolled long standing diabetes. He did not appear to have any suspicious medications. He is currently not cleared by physical therapy and the reason why he remains in the hospital. 8. Dyslipidemia. Continue with statin. 9. Hypertension. He has lisinopril with holding parameters. 10. Glaucoma. Continue with Cosopt and Xalatan. 11. Gastroesophageal reflux disease. Continue with proton pump inhibitor (PPI) . 12. Migraines. Continue with Maxalt. 13. Depression. Continue with Celexa. 14. Deep vein thrombosis (DVT) prophylaxis. The patient is on Eliquis. DISPOSITION: Pending physical therapy (PT) and Patient and Family Services (PFS). [facility]
--- NOTE | 2016-12-05 14:21 | REP ---
MR BRAIN WITHOUT CONTRAST: HISTORY: Altered mental status. COMPARISON: CT 12/02/2016 and MR 11/17/2016. Areas of increased signal intensity on T2-weighted images are present in the periventricular and subcortical white matter and vilma. This represents small vessel ischemic disease. There is no intraparenchymal hemorrhage, infarct, or midline shift. The ventricular system and cortical sulci are dilated consistent with moderate volume loss. A small mass iso- and hypointense on T1- and T2-weighted images, respectively, is present in the left side of the prepontine and medullary cisterns. This measures 0.5 cm in transverse x 1.7 cm in AP dimensions and is unchanged in size compared to the previous study. This represents a small meningioma or possibly pannus-like material. The sinuses are clear. IMPRESSION: 1. Small vessel ischemic disease. 2. Moderate volume loss. 3. There is a small extra-axial mass in the left side of the prepontine and medullary cisterns most likely representing a small meningioma or pannus-like material. Signed by Manoj Curtis MD 12/05/2016 02:23 P
--- NOTE | 2016-12-05 14:52 | REP ---
CT Head without contrast HISTORY: Fall COMPARISON: 12/02/2016 Areas of decreased attenuation are present in the periventricular and subcortical white matter. This represents small-vessel ischemic disease. There is no intraparenchymal hemorrhage, acute infarct, mass or midline shift. The ventricular system and cortical sulci are dilated consistent with moderate volume loss. There is no extra cerebral collection. There is no fracture. The visualized sinuses are clear. IMPRESSION: 1. Small vessel ischemic disease. 2. Moderate volume loss. Signed by Manoj Curtis MD 12/05/2016 02:43 P
[2016-12-05] MEDS: LATANOPROST 0.005% OPHTH SOLN 2.5 ML OU SCH (22:22)
[2016-12-05 22:30] VITALS: BP_SYST 121; BP_SYST 160; BP_SYST 90; BP_DIAS 58; BP_DIAS 60; BP_DIAS 90
[2016-12-06] MEDS: SODIUM CHLORIDE 0.9% INJ 10 ML SYR IV SCH ×3 (05:12→20:35)
[2016-12-06 05:27] LABS: MEAN CORPUSCULAR HEMOGLOBIN 30.8 pg (27.0-33.0); MEAN CORPUSCULAR HGB CONC 35.2 g/dl (32.0-36.5); MEAN CORPUSCULAR VOLUME 87.5 fl (80.0-96.0); RED CELL DISTRIBUTION WIDTH 14.2 % (11.5-14.5); WHITE BLOOD COUNT 9.1 K/mm3 (4.0-10.0)
[2016-12-06 05:53] LABS: ALBUMIN 2.4 GM/DL (3.2-5.2); ALBUMIN/GLOBULIN RATIO 0.86 (1.00-1.93); ALKALINE PHOSPHATASE 121 U/L (45-117); ALT/SGPT 59 U/L (12-78); ANION GAP 8 MEQ/L (8-16); AST/SGOT 21 U/L (15-37); BILIRUBIN,TOTAL 0.4 MG/DL (0.2-1.0); BLOOD UREA NITROGEN 18 MG/DL (7-18); CALCIUM LEVEL 7.9 MG/DL (8.5-10.1); CARBON DIOXIDE LEVEL 31 MEQ/L (21-32); CHLORIDE LEVEL 103 MEQ/L (98-107); GLOMERULAR FILTRATION RATE > 60.0 (>56); MAGNESIUM LEVEL 2.1 MG/DL (1.8-2.4); POTASSIUM SERUM 3.9 MEQ/L (3.5-5.1); SODIUM LEVEL 142 MEQ/L (136-145); TOTAL PROTEIN 5.2 GM/DL (6.4-8.2)
[2016-12-06 06:15] VITALS: BP 164/72
[2016-12-06 06:28] LABS: GLUCOSE, FASTING 25 MG/DL (70-105)
[2016-12-06] MEDS: DEXTROSE 50% 50 ML SYRINGE IV PRN ×2 (06:43→06:44)
[2016-12-06 06:46] VITALS: BP_SYST 106; BP_SYST 166; BP_SYST 92; BP_DIAS 58; BP_DIAS 65; BP_DIAS 86
[2016-12-06] MEDS: HumaLOG INSULIN (NovoLOG) PER UNIT SC SCH ×4 (08:04→20:32)
[2016-12-06] MEDS: COSOPT OCUMETER PLUS 10ML (DORZOLAMIDE/TIMOLOL) OU SCH ×2 (09:00→20:35)
[2016-12-06 10:30] VITALS: BP 131/71
[2016-12-06] MEDS: ASPIRIN 81 MG ENTERIC TAB PO SCH (10:54)
[2016-12-06] MEDS: SENOKOT S TAB PO SCH ×2 (10:55→20:34)
[2016-12-06] MEDS: DOXYCYCLINE HYCLATE 100 MG TAB PO SCH ×2 (10:55→20:34)
[2016-12-06] MEDS: APIXABAN 5 MG TAB (ELIQUIS) PO SCH ×2 (10:55→20:34)
[2016-12-06] MEDS: LISINOPRIL 10 MG TAB PO SCH (10:56)
[2016-12-06] MEDS: PANTOPRAZOLE 40MG TAB (PROTONIX) PO SCH ×2 (10:57→20:34)
[2016-12-06] MEDS: LEVEMIR (INSULIN DETEMIR) 1 UNITS/0.01ML SC SCH ×2 (10:58→20:33)
[2016-12-06] MEDS: predniSONE 20 MG TAB PO SCH (11:01)
[2016-12-06] MEDS: CitaloPRAM (CeleXA) 20 MG TAB PO SCH (11:02)
[2016-12-06] MEDS: ATORVASTATIN 20 MG TAB PO SCH (11:02)
[2016-12-06] MEDS: RIZATRIPTAN BENZOATE 10 MG TAB PO PRN (11:14)
[2016-12-06 14:00] VITALS: BP_SYST 118; BP_SYST 88; BP_SYST 93; BP_DIAS 52; BP_DIAS 54; BP_DIAS 66
--- NOTE | 2016-12-06 14:01 | IPN ---
DATE: 12/06/2016 SUBJECTIVE: Today, the patient tells me that he is feeling well this morning. He did have an episode of low blood glucose and required implementation of hypoglycemic protocol, after which he feels significantly better and has no complaints at this time. He denies any lightheadedness or dizziness when standing. OBJECTIVE: VITAL SIGNS: Temperature 97.9. Pulse 80. Respiratory rate 18. Blood pressure 166/86 supine, 92/58 standing. Oxygen saturation 98% on room air. GENERAL: He is a disheveled man lying in bed. He does not appear to be in any acute distress. HEENT: Cranial nerves II through XII are grossly intact. He has moist mucous membranes. He has a dysconjugate gaze. No elevation of central venous pressure. CARDIOVASCULAR: S1, S2, regular. RESPIRATORY EXAM: Clear. ABDOMINAL EXAM: Benign. EXTREMITIES: No clubbing, cyanosis or edema. LABORATORY STUDIES: WBC 9.1, hemoglobin 10.4, platelet count 337. Chemistry panel: Sodium 142, potassium 3.9, chloride 103, bicarbonate 31, BUN 18, creatinine 0.6, fasting glucose 25 and corrected. MICROBIOLOGY: Stool for Clostridium (C.) difficile is negative. Right arm has coag negative Staphylococcus wound culture. Blood cultures are negative. Urine culture is negative. 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 The patient also had a CT scan of the head that revealed small vessel ischemic disease, moderate volume loss. ASSESSMENT AND PLAN: This is a 56-year-old who initially presented with metabolic encephalopathy. PROBLEMS: 1. Metabolic encephalopathy, resolved. Possibly related to cellulitis. He has been switched to doxycycline. Today is day 4 of 10 of antibiotics. Metabolic encephalopathy is resolved. He is doing quite well at this time. 2. Giant cell arteritis. He is on prednisone 60 mg a day. We will give this to him again tomorrow and then transition him back to 20 mg of prednisone daily. 3. Right lower extremity deep vein thrombosis (DVT). He has been restarted on Eliquis. He does have a peripherally inserted central catheter (PICC) line in place in his left upper extremity. 4. Fever and leukocytosis, likely related to cellulitis, resolved. 5. Hyperbilirubinemia, resolved. 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 At the present time, he is on sliding scale with fingersticks. We have adjusted his evening Levemir to avoid morning hypoglycemia. I suspect that he would benefit from being back on his insulin pump on the outpatient setting and he will require close followup with his social welfare research worker. 7. Orthostatic hypotension. Likely related to autonomic neuropathy related to his uncontrolled long standing diabetes. He is currently not cleared by physical therapy and the reason why he is in the hospital. Him making use of a wheelchair may benefit him. We discussed this at length during rounds this morning in order to arrange for a safe disposition as possible. 8. Dyslipidemia. Continue with statin. 9. Hypertension. He has lisinopril with holding parameters. 10. Glaucoma. Continue with Cosopt and Xalatan. 11. Gastroesophageal reflux disease. Continue with proton pump inhibitor (PPI). 12. Migraines. Continue with Maxalt. 13. Depression. Continue with Celexa. 14. Deep vein thrombosis (DVT) prophylaxis. The patient is on Eliquis. DISPOSITION: Pending physical therapy (PT) and [facility] ([facility]) for safe disposition.
[2016-12-06] MEDS: LATANOPROST 0.005% OPHTH SOLN 2.5 ML OU SCH (20:35)
[2016-12-06 22:00] VITALS: BP_SYST 110; BP_SYST 156; BP_SYST 157; BP_DIAS 62; BP_DIAS 63; BP_DIAS 87
[2016-12-07 06:00] VITALS: BP_SYST 164; BP_SYST 173; BP_SYST 93; BP_DIAS 54; BP_DIAS 72; BP_DIAS 90
[2016-12-07] MEDS: SODIUM CHLORIDE 0.9% INJ 10 ML SYR IV SCH ×3 (06:00→20:52)
[2016-12-07 06:12] LABS: MEAN CORPUSCULAR HEMOGLOBIN 30.7 pg (27.0-33.0); MEAN CORPUSCULAR HGB CONC 34.2 g/dl (32.0-36.5); MEAN CORPUSCULAR VOLUME 89.7 fl (80.0-96.0); RED CELL DISTRIBUTION WIDTH 14.5 % (11.5-14.5); WHITE BLOOD COUNT 8.8 K/mm3 (4.0-10.0)
[2016-12-07 06:30] LABS: ALBUMIN 2.4 GM/DL (3.2-5.2); ALBUMIN/GLOBULIN RATIO 0.92 (1.00-1.93); ALKALINE PHOSPHATASE 119 U/L (45-117); ALT/SGPT 79 U/L (12-78); ANION GAP 6 MEQ/L (8-16); AST/SGOT 28 U/L (15-37); BILIRUBIN,TOTAL 0.5 MG/DL (0.2-1.0); BLOOD UREA NITROGEN 18 MG/DL (7-18); CALCIUM LEVEL 7.9 MG/DL (8.5-10.1); CARBON DIOXIDE LEVEL 31 MEQ/L (21-32); CHLORIDE LEVEL 101 MEQ/L (98-107); CREATININE FOR GFR 0.66 MG/DL (0.70-1.30); GLOMERULAR FILTRATION RATE > 60.0 (>56); GLUCOSE, FASTING 75 MG/DL (70-105); MAGNESIUM LEVEL 2.2 MG/DL (1.8-2.4); POTASSIUM SERUM 3.9 MEQ/L (3.5-5.1); SODIUM LEVEL 138 MEQ/L (136-145)
--- NOTE | 2016-12-07 06:53 | EEG ---
DATE OF PROCEDURE: 12/05/2016 REFERRING PHYSICIAN: Dr. Javon Tucker DIAGNOSIS: Altered mental status. EEG NUMBER: [id number]. HISTORY: Patient is a 56-year-old man who was admitted at [facility] due to altered mental status with infection, fever and hypoglycemia. This EEG was done to rule out epileptic potential and assess degree of encephalopathy. He is currently taking Eliquis Celexa, aspirin, Lipitor. TECHNICAL DESCRIPTION: This digital EEG was recorded by 21 scalp, ear and two EKG electrodes and was reviewed in bipolar and referential montages following reformatting in 10-20 international electrode placement system. INTERPRETATION: Patient was noted to be in awake and drowsy states during this EEG. Background rhythm was affected by motion and muscle artifacts. Resting awake background rhythm consisted of 8 Hz alpha activity measuring 15-20 microvolts in amplitude, which was symmetric and reactive to eye opening. Attenuation of posterior dominant was seen during transition into drowsiness. Stage I and II sleep were reviewed and were symmetric bilaterally. Hyperventilation and photic stimulation remained unremarkable. Intermittent bilateral frontal rhythmic delta activity was noted. No epileptiform abnormalities were seen. No clinical or electrographic seizures were recorded. CONCLUSION: This EEG in awake, drowsy states, stage I and II sleep is abnormal due to presence of intermittent frontal rhythmic delta activity consistent with nonspecific diffuse cerebral dysfunction such as seen in encephalopathy due to multiple potential causes. No epileptiform abnormalities were seen. Clinical correlation is recommended.
[2016-12-07] MEDS: HumaLOG INSULIN (NovoLOG) PER UNIT SC SCH ×4 (07:30→20:53)
[2016-12-07] MEDS: ACETAMINOPHEN TAB 650MG DOSE (2X325MG) PO PRN (07:34)
[2016-12-07] MEDS ORDERED: FLUDROCORTISONE ACETATE 0.1 MG TAB PO SCH (09:00)
[2016-12-07] MEDS: ATORVASTATIN 20 MG TAB PO SCH (09:52)
[2016-12-07] MEDS: DOXYCYCLINE HYCLATE 100 MG TAB PO SCH ×2 (09:52→20:52)
[2016-12-07] MEDS: LEVEMIR (INSULIN DETEMIR) 1 UNITS/0.01ML SC SCH ×2 (09:52→20:51)
[2016-12-07] MEDS: PANTOPRAZOLE 40MG TAB (PROTONIX) PO SCH ×2 (09:52→20:55)
[2016-12-07] MEDS: CitaloPRAM (CeleXA) 20 MG TAB PO SCH (09:52)
[2016-12-07] MEDS: predniSONE 20 MG TAB PO SCH (09:52)
[2016-12-07] MEDS: COSOPT OCUMETER PLUS 10ML (DORZOLAMIDE/TIMOLOL) OU SCH ×2 (09:53→20:52)
[2016-12-07] MEDS: APIXABAN 5 MG TAB (ELIQUIS) PO SCH ×2 (09:53→20:52)
[2016-12-07] MEDS: SENOKOT S TAB PO SCH ×2 (09:53→20:52)
[2016-12-07] MEDS: ASPIRIN 81 MG ENTERIC TAB PO SCH (09:53)
[2016-12-07 13:35] LABS: VITAMIN B12 LEVEL 634 PG/ML (247-911)
[2016-12-07 14:05] VITALS: BP_SYST 106; BP_SYST 132; BP_SYST 82; BP_DIAS 62; BP_DIAS 72; BP_DIAS 86
--- NOTE | 2016-12-07 14:23 | IPN ---
DATE: 12/07/2016 SUBJECTIVE: This morning the patient tells me he feels well. He has no complaints whatsoever. Eager to go home. OBJECTIVE: VITAL SIGNS: Temperature 97.2. Pulse 83. Respiratory rate 18. Blood pressure 164/90 while supine, 93/54 with a heart rate of 64 while standing. GENERAL: He is a disheveled man lying in bed. He does not appear to be in any acute distress. HEENT: Cranial nerves II through XII are grossly intact. He has a chronic dysconjugate gaze. He has moist mucous membranes. No elevation of central venous pressure. CARDIOVASCULAR: S1, S2, regular. RESPIRATORY EXAM: Clear. ABDOMINAL EXAM: Benign. EXTREMITIES: No clubbing, cyanosis or edema. LABORATORY STUDIES: WBC 8.8, hemoglobin 9.5, hematocrit 27.7, platelet count 280. ESR continues to trend down. Chemistry panel: Sodium 138, potassium 3.9, chloride 101, bicarbonate 31, BUN 18, creatinine 0.6, ALT slightly elevated at 79, alkaline phosphatase elevated at 119. CRP continues to trend down. No new imaging. ASSESSMENT AND PLAN: This is a 56-year-old who initially presented with metabolic encephalopathy. PROBLEMS: 1. Metabolic encephalopathy, resolved. Possibly related to cellulitis. He did have fever and leukocytosis earlier. He has been switched to doxycycline. Today is day 5 . He is doing quite well. 2. Orthostatic hypotension. Likely secondary to autonomic neuropathy related to his uncontrolled longstanding diabetes of greater than 40 years and this is the primary reason for admitting him to the hospital. He has not been cleared by physical therapy. I did spend a significant amount of time educating the patient regarding the need to use a wheelchair and not be on his feet as he has frequent drop attacks. I will start him on captopril 6.25 mg at bedtime to treat supine hypertension while sleeping and also start him on midodrine 2.5 mg at 8 a.m. and 4 p.m. to elevate his blood pressure during the daylight hours. I have also titrated down his Celexa. I will start him Florinef 0.1 mg daily. I feel these measures are to provide benefit to him. We will also attempt to titrate down his steroid tomorrow. 3. Brittle diabetes. He was previously on a pump and would likely benefit from being back on this in the future. He will need to followup with his lead blender on the outpatient setting. At the present time, he fingerstick are controlled with his current regimen of sliding scale and coverage. 4. Giant cell arteritis. He is currently on an elevated dosage of prednisone. We will try to titrate this down in the near future. 5. Right upper extremity deep vein thrombosis (DVT). He is on Eliquis. 6. Dyslipidemia. Continue statins. 7. Glaucoma. Continue Cosopt and Xalatan. 8. Gastroesophageal reflux disease (GERD). Continue with proton pump inhibitor (PPI). 9. Migraines. Continue with Maxalt. 10. Depression. Continue with Celexa. 11. Deep vein thrombosis (DVT) prophylaxis. Continue with Eliquis.
[2016-12-07] MEDS ORDERED: MIDODRINE 2.5 MG TAB PO SCH (16:00)
[2016-12-07] MEDS: LATANOPROST 0.005% OPHTH SOLN 2.5 ML OU SCH (20:52)
[2016-12-07] MEDS: CAPTOpril 6.25 MG PER 1/2 TABLET PO SCH (20:58)
[2016-12-07 22:00] VITALS: BP 138/67
[2016-12-07 22:20] VITALS: BP_SYST 124; BP_SYST 129; BP_SYST 182; BP_DIAS 62; BP_DIAS 65; BP_DIAS 93
[2016-12-08 05:31] VITALS: BP_SYST 120; BP_SYST 121; BP_SYST 195; BP_DIAS 104; BP_DIAS 67; BP_DIAS 74
[2016-12-08 05:40] VITALS: BP 195/104
[2016-12-08] MEDS: SODIUM CHLORIDE 0.9% INJ 10 ML SYR IV SCH ×3 (05:57→21:10)
[2016-12-08 06:12] LABS: MEAN CORPUSCULAR HEMOGLOBIN 29.6 pg (27.0-33.0); MEAN CORPUSCULAR HGB CONC 33.3 g/dl (32.0-36.5); RED CELL DISTRIBUTION WIDTH 14.6 % (11.5-14.5); WHITE BLOOD COUNT 7.8 K/mm3 (4.0-10.0)
[2016-12-08 06:16] LABS: ALBUMIN 2.2 GM/DL (3.2-5.2); ALBUMIN/GLOBULIN RATIO 0.88 (1.00-1.93); ALKALINE PHOSPHATASE 116 U/L (45-117); ALT/SGPT 76 U/L (12-78); ANION GAP 9 MEQ/L (8-16); AST/SGOT 22 U/L (15-37); BILIRUBIN,TOTAL 0.3 MG/DL (0.2-1.0); BLOOD UREA NITROGEN 21 MG/DL (7-18); CALCIUM LEVEL 8.2 MG/DL (8.5-10.1); CARBON DIOXIDE LEVEL 29 MEQ/L (21-32); CHLORIDE LEVEL 103 MEQ/L (98-107); GLOMERULAR FILTRATION RATE > 60.0 (>56); GLUCOSE, FASTING 82 MG/DL (70-105); MAGNESIUM LEVEL 1.9 MG/DL (1.8-2.4); POTASSIUM SERUM 3.9 MEQ/L (3.5-5.1); SODIUM LEVEL 141 MEQ/L (136-145); TOTAL PROTEIN 4.7 GM/DL (6.4-8.2)
[2016-12-08] MEDS: HumaLOG INSULIN (NovoLOG) PER UNIT SC SCH ×4 (07:30→21:00)
[2016-12-08] MEDS: LEVEMIR (INSULIN DETEMIR) 1 UNITS/0.01ML SC SCH ×2 (09:40→21:10)
[2016-12-08] MEDS: ASPIRIN 81 MG ENTERIC TAB PO SCH (09:41)
[2016-12-08] MEDS: predniSONE 20 MG TAB PO SCH (09:42)
[2016-12-08] MEDS: APIXABAN 5 MG TAB (ELIQUIS) PO SCH ×2 (09:43→21:09)
[2016-12-08] MEDS: PANTOPRAZOLE 40MG TAB (PROTONIX) PO SCH ×2 (09:43→21:09)
[2016-12-08] MEDS: SENOKOT S TAB PO SCH ×2 (09:43→21:00)
[2016-12-08] MEDS: CitaloPRAM (CeleXA) 20 MG TAB PO SCH (09:43)
[2016-12-08] MEDS: ATORVASTATIN 20 MG TAB PO SCH (09:43)
[2016-12-08] MEDS: COSOPT OCUMETER PLUS 10ML (DORZOLAMIDE/TIMOLOL) OU SCH ×2 (09:44→21:17)
[2016-12-08] MEDS: MIDODRINE 2.5 MG TAB PO SCH (09:44)
[2016-12-08] MEDS: DOXYCYCLINE HYCLATE 100 MG TAB PO SCH ×2 (09:44→21:09)
[2016-12-08] MEDS: ACETAMINOPHEN TAB 650MG DOSE (2X325MG) PO PRN ×2 (11:14→21:17)
--- NOTE | 2016-12-08 13:55 | IPN ---
DATE: 12/08/2016 SUBJECTIVE: The patient tells me that he feels well. He tells me that he is not feeling lightheaded or dizzy. He denies chest pain or shortness of breath, fever, chills, nausea, vomiting, or diarrhea. OBJECTIVE: VITAL SIGNS: Temperature 97.7. Pulse 85. Respiratory rate 18. Blood pressure 195/104 while lying supine and 120/67 while standing, oxygen saturation 98% on room air. GENERAL: He is a disheveled man sitting in a recliner. He appears to be in no acute distress. HEENT: Cranial nerves II through XII are grossly intact. He has moist mucous membranes. He has a chronic dysconjugate gaze. No elevation of central venous pressure. CARDIOVASCULAR: S1, S2, regular. RESPIRATORY EXAM: Clear. ABDOMINAL EXAM: Benign. EXTREMITIES: No clubbing, cyanosis or edema. LABORATORY STUDIES: WBC 7.8, hemoglobin 8.4, hematocrit 25.4, platelet count 302. Chemistry panel with sodium 141, potassium 3.9, chloride 103, bicarbonate 29, BUN 21, creatinine 0.6. Liver function tests within normal limits. No new imaging. ASSESSMENT AND PLAN: This is a 56-year-old man who initially presented with metabolic encephalopathy. PROBLEMS: 1. Metabolic encephalopathy, resolved. Likely secondary to cellulitis. He did have fever and leukocytosis earlier. He is on doxycycline, today is day 6 of 10. He is doing well. 2. Orthostatic hypotension. Likely related to autonomic neuropathy related to longstanding diabetes type 1 greater than 40 years. He has not been cleared by physical therapy. I spent a significant amount of time educating the patient regarding his likely need to use a wheelchair. I did attempt to start him on some medications to help compensate this. He was given compression stockings. He is on captopril 6.25 mg to treat supine hypertension at night. He is also on midodrine, I will change his dosing to once a day 2.5 mg at 8 a.m. and discontinue Florinef. He received one dose and he did have some significant hypertension following it. I will titrate down the steroids. 3. Brittle diabetes. Previously on a pump and would likely benefit from being back on this in the future. He will followup with his outpatient field service poultry technician. At the present time, his fingerstick are controlled when he is on sliding scale. 4. Giant cell arteritis. He is currently on an elevated dose of prednisone. We are titrating it down back to 20 mg. 5. Right upper extremity deep vein thrombosis (DVT). He is on Eliquis. 6. Dyslipidemia. He is on a statin. 7. Glaucoma. He is on Cosopt and Xalatan. 8. Gastroesophageal reflux disease (GERD). He is on a proton pump inhibitor (PPI). 9. Migraines. He is on Maxalt. 10. Depression. He is on Celexa. 11. Deep vein thrombosis (DVT) prophylaxis. He is on Eliquis. DISPOSITION: Pending physical therapy (PT).
[2016-12-08 15:17] VITALS: BP 95/61
[2016-12-08 18:25] VITALS: BP_SYST 104; BP_SYST 122; BP_SYST 142; BP_DIAS 56; BP_DIAS 76; BP_DIAS 82
[2016-12-08] MEDS: CAPTOpril 6.25 MG PER 1/2 TABLET PO SCH (21:09)
[2016-12-08] MEDS: LATANOPROST 0.005% OPHTH SOLN 2.5 ML OU SCH (21:17)
[2016-12-08 22:00] VITALS: BP 116/63
[2016-12-09] MEDS: SODIUM CHLORIDE 0.9% INJ 10 ML SYR IV SCH ×3 (05:24→21:03)
[2016-12-09 05:48] LABS: MEAN CORPUSCULAR HGB CONC 34.4 g/dl (32.0-36.5); MEAN CORPUSCULAR VOLUME 90.1 fl (80.0-96.0); WHITE BLOOD COUNT 7.9 K/mm3 (4.0-10.0)
[2016-12-09 06:00] VITALS: BP_SYST 109; BP_SYST 160; BP_DIAS 86; BP_DIAS 98
[2016-12-09] MEDS: ACETAMINOPHEN TAB 650MG DOSE (2X325MG) PO PRN ×2 (06:03→19:59)
[2016-12-09 06:12] LABS: ALBUMIN 2.1 GM/DL (3.2-5.2); ALBUMIN/GLOBULIN RATIO 0.91 (1.00-1.93); ALKALINE PHOSPHATASE 109 U/L (45-117); ALT/SGPT 89 U/L (12-78); ANION GAP 8 MEQ/L (8-16); AST/SGOT 32 U/L (15-37); BILIRUBIN,TOTAL 0.3 MG/DL (0.2-1.0); BLOOD UREA NITROGEN 23 MG/DL (7-18); CALCIUM LEVEL 7.9 MG/DL (8.5-10.1); CARBON DIOXIDE LEVEL 28 MEQ/L (21-32); CHLORIDE LEVEL 105 MEQ/L (98-107); CREATININE FOR GFR 0.62 MG/DL (0.70-1.30); GLOMERULAR FILTRATION RATE > 60.0 (>56); GLUCOSE, FASTING 93 MG/DL (70-105); POTASSIUM SERUM 3.8 MEQ/L (3.5-5.1); SODIUM LEVEL 141 MEQ/L (136-145); TOTAL PROTEIN 4.4 GM/DL (6.4-8.2)
[2016-12-09 06:35] VITALS: BP_SYST 100; BP_SYST 122; BP_SYST 160; BP_DIAS 62; BP_DIAS 74; BP_DIAS 98
[2016-12-09] MEDS: HumaLOG INSULIN (NovoLOG) PER UNIT SC SCH ×4 (07:30→21:04)
[2016-12-09] MEDS: SENOKOT S TAB PO SCH ×3 (09:51→21:04)
[2016-12-09] MEDS: PANTOPRAZOLE 40MG TAB (PROTONIX) PO SCH ×2 (09:51→21:04)
[2016-12-09] MEDS: CitaloPRAM (CeleXA) 20 MG TAB PO SCH (09:51)
[2016-12-09] MEDS: DOXYCYCLINE HYCLATE 100 MG TAB PO SCH ×2 (09:51→21:04)
[2016-12-09] MEDS: MIDODRINE 2.5 MG TAB PO SCH (09:51)
[2016-12-09] MEDS: ATORVASTATIN 20 MG TAB PO SCH (09:51)
[2016-12-09] MEDS: ASPIRIN 81 MG ENTERIC TAB PO SCH (09:51)
[2016-12-09] MEDS: predniSONE 20 MG TAB PO SCH (09:52)
[2016-12-09] MEDS: LEVEMIR (INSULIN DETEMIR) 1 UNITS/0.01ML SC SCH ×2 (09:52→21:05)
[2016-12-09] MEDS: APIXABAN 5 MG TAB (ELIQUIS) PO SCH ×2 (09:52→21:04)
[2016-12-09] MEDS: COSOPT OCUMETER PLUS 10ML (DORZOLAMIDE/TIMOLOL) OU SCH ×2 (09:53→21:05)
[2016-12-09 14:00] VITALS: BP 114/62
[2016-12-09 18:02] VITALS: BP_SYST 125; BP_SYST 137; BP_SYST 95; BP_DIAS 51; BP_DIAS 68; BP_DIAS 81
--- NOTE | 2016-12-09 20:25 | IPN ---
DATE: 12/09/2016 SUBJECTIVE: The patient tells me he is feeling well. He has no complaints. He denies any symptoms of orthostasis, as he has throughout his entire hospitalization. OBJECTIVE: VITAL SIGNS: Temperature 98.7, pulse 84, respiratory rate 18, blood pressure (BP) 160/98 while lying supine, when standing 100/62, oxygen saturation 100% on room air. GENERAL: He is a disheveled man lying in bed. He is comfortable in no distress. HEENT: Cranial nerves II-XII are grossly intact. He has moist mucous membranes. No elevation in central venous pressure (CVP). CARDIOVASCULAR: S1, S2, regular. RESPIRATORY: Clear. ABDOMEN: Benign. EXTREMITIES: No clubbing, cyanosis, or edema. LABORATORY STUDIES: WBC 7.9, hemoglobin 8.7, platelet count 276. ESR within normal limits. Chemistry panel: Sodium 141, potassium 3.8, chloride 105, bicarbonate 28, BUN 23, creatinine 0.6. CRP is 0.45, down from a peak at 10 on presentation. No new imaging or cultures. ASSESSMENT AND PLAN: This is a 56-year-old man with metabolic encephalopathy. 1. Metabolic encephalopathy, resolved, possibly related to cellulitis versus steroid use. He is on doxycycline. Today is day 7 of 10. 2. Orthostatic hypotension, likely related to autonomic neuropathy related to longstanding type 1 diabetes, greater 40 years. He has not been cleared by physical therapy. We spent a significant amount of time over the last several days educating the patient and the need for him to use a walker for distance and a wheelchair if he is on his feet for any significant amount of time. We have started him on medications in order to help him minimize his symptoms of his orthostasis, including midodrine in the morning, captopril in the evening to avoid supine hypertension. 3. Brittle diabetes. We have titrated down his steroids. He was previously on the pump and would likely benefit from being put back on this in future. He should followup with his casting carrier. His fingersticks are controlled. 4. Giant cell arteritis. He had been on an elevated dose of prednisone; however, at the present time there is no evidence for any acute flare-up. He will continue on prednisone 20 mg daily, which is his baseline dosing for the time being. 5. Right lower extremity deep vein thrombosis (DVT). He is on Eliquis. 6. Abnormal brain MRI. Patient did have small extra-axial mass in the left side of his prepontine and medullary cisterns, most likely representing small meningioma or panus-like material. The patient underwent the MRI and was concerning for encephalopathy, which is resolved. This is an incidental finding and such he should have an outpatient referral to Dr. Mercado for further evaluation and if any intervention is needed. 7. Dyslipidemia. He is on a statin. 8. Glaucoma. He is on Cosopt and Xalatan. 9. Gastroesophageal reflux disease. He is on a proton pump inhibitor (PPI). 10. Migraine. He is on Maxalt. 11. Depression. He is on Celexa. 12. Deep vein thrombosis (DVT) prophylaxis. He is on Eliquis. DISPOSITION: Pending physical therapy (PT). He will likely require a wheelchair at discharge.
[2016-12-09] MEDS: CAPTOpril 6.25 MG PER 1/2 TABLET PO SCH (21:03)
[2016-12-09] MEDS: LATANOPROST 0.005% OPHTH SOLN 2.5 ML OU SCH (21:05)
[2016-12-09 22:00] VITALS: BP 149/62
[2016-12-10] MEDS: ACETAMINOPHEN TAB 650MG DOSE (2X325MG) PO PRN ×2 (02:12→08:49)
[2016-12-10] MEDS: SODIUM CHLORIDE 0.9% INJ 10 ML SYR IV SCH ×3 (05:32→20:38)
[2016-12-10 05:33] VITALS: BP_SYST 102; BP_SYST 124; BP_SYST 150; BP_DIAS 60; BP_DIAS 70; BP_DIAS 80
[2016-12-10 05:39] VITALS: BP 150/80
[2016-12-10] MEDS: HumaLOG INSULIN (NovoLOG) PER UNIT SC SCH ×4 (07:27→22:07)
[2016-12-10 07:32] LABS: MEAN CORPUSCULAR HEMOGLOBIN 30.4 pg (27.0-33.0); MEAN CORPUSCULAR VOLUME 89.6 fl (80.0-96.0); RED CELL DISTRIBUTION WIDTH 15.1 % (11.5-14.5); WHITE BLOOD COUNT 6.4 K/mm3 (4.0-10.0)
[2016-12-10 07:53] LABS: ANION GAP 8 MEQ/L (8-16); BLOOD UREA NITROGEN 23 MG/DL (7-18); CALCIUM LEVEL 7.8 MG/DL (8.5-10.1); CARBON DIOXIDE LEVEL 28 MEQ/L (21-32); CHLORIDE LEVEL 103 MEQ/L (98-107); CREATININE FOR GFR 0.71 MG/DL (0.70-1.30); GLOMERULAR FILTRATION RATE > 60.0 (>56); GLUCOSE, FASTING 99 MG/DL (70-105); SODIUM LEVEL 139 MEQ/L (136-145)
[2016-12-10] MEDS: LEVEMIR (INSULIN DETEMIR) 1 UNITS/0.01ML SC SCH ×2 (08:48→20:42)
[2016-12-10] MEDS: ASPIRIN 81 MG ENTERIC TAB PO SCH (08:49)
[2016-12-10] MEDS: APIXABAN 5 MG TAB (ELIQUIS) PO SCH ×2 (08:49→20:37)
[2016-12-10] MEDS: predniSONE 20 MG TAB PO SCH (08:49)
[2016-12-10] MEDS: SENOKOT S TAB PO SCH ×2 (08:49→20:37)
[2016-12-10] MEDS: ATORVASTATIN 20 MG TAB PO SCH (08:49)
[2016-12-10] MEDS: CitaloPRAM (CeleXA) 20 MG TAB PO SCH (08:49)
[2016-12-10] MEDS: PANTOPRAZOLE 40MG TAB (PROTONIX) PO SCH ×2 (08:50→20:36)
[2016-12-10] MEDS: COSOPT OCUMETER PLUS 10ML (DORZOLAMIDE/TIMOLOL) OU SCH ×2 (08:50→20:36)
[2016-12-10] MEDS: MIDODRINE 2.5 MG TAB PO SCH (08:50)
[2016-12-10] MEDS: DOXYCYCLINE HYCLATE 100 MG TAB PO SCH ×2 (08:50→20:37)
--- NOTE | 2016-12-10 11:20 | IPN ---
DATE: 12/10/2016 SUBJECTIVE: The patient has no complaints whatsoever. He is feeling great and is eager to go home. OBJECTIVE: VITAL SIGNS: Temperature is 98.3, pulse 90, respiratory rate 18, blood pressure 150/80 while lying supine, 102/60 while standing. Oxygen saturation 99% on room air. GENERAL: He is a pleasant man lying flat in bed in no distress, watching television. HEENT: He has a chronic dysconjugate gaze. Moist mucous membranes. 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 No elevation of central venous pressure (CVP). CARDIOVASCULAR EXAM: S1, S2, regular. RESPIRATORY EXAM: Clear. ABDOMINAL EXAM: Benign. EXTREMITIES: No clubbing, cyanosis or edema. LABORATORY STUDIES: WBC 6.4, hemoglobin 9.3, platelet count 297. Chemistry panel : Sodium 139, potassium 4.0, chloride 103, bicarbonate 28, BUN 23, creatinine 0.7. No new imaging. ASSESSMENT AND PLAN: This is a 56-year-old man with resolved metabolic encephalopathy and orthostatic hypotension secondary to autonomic dysfunction. Problems: 1. Metabolic encephalopathy, resolved. Related to cellulitis versus steroid use. He is on doxycycline today, day 8 of . 2. Orthostatic hypotension, likely related to autonomic neuropathy related to type 1 diabetes for greater than 40 years. I have spent a significant amount of time over the last several days educating the patient on the need for a wheelchair, his risk for drop attacks and for optimizing his medications as best as possible. I feel he is as good as he will get. Should he not be able to be cleared by physical therapy tomorrow, he should likely be on skilling nursing, he should be alternate level of care and await placement in detention facility. He is on midorine in the morning and captopril at night. 3. Brittle type 1 diabetes. We are titrating down the steroids back to the 20 mg , which he is tolerating well. He will need followup with his outpatient roll over press operator and likely resume being back on his pump through his roll over press operator. 4. Giant cell arteritis. He was previously on an elevated dose of prednisone. However, he is back on his home dose, his erythrocyte sedimentation rate (ESR) is fairly unimpressive as are his symptoms. Continue him on prednisone 20 mg daily. 5. Right upper extremity deep vein thrombosis (DVT). He is on Eliquis. 6. Abnormal MRI. The patient did have a small extra-axial mass on the left side of his prepontine and medullary cistern, most likely representing small meningioma or pannus-like material. He underwent MRI for concerning encephalopathy, which has resolved. This is an incidental finding. I recommend he have outpatient followup with Dr. Mercado for further evaluation if any intervention is needed. 7. Dyslipidemia. He is on a statin. 8. Glaucoma. He is on Cosopt and Xalatan. 9. Gastroesophageal reflux disease. He is on a proton pump inhibitor (PPI). 10. Migraines. He is on Maxalt. 11. Depression. He is on Celexa. 12. Deep vein thrombosis prophylaxis. Bing. DISPOSITION: Pending physical therapy. [facility]TDD
[2016-12-10 14:00] VITALS: BP 107/58
[2016-12-10 18:00] VITALS: BP_SYST 100; BP_SYST 126; BP_SYST 148; BP_DIAS 60; BP_DIAS 72; BP_DIAS 80
[2016-12-10] MEDS: LATANOPROST 0.005% OPHTH SOLN 2.5 ML OU SCH (20:36)
[2016-12-10 20:37] VITALS: BP 110/60
[2016-12-10] MEDS: CAPTOpril 6.25 MG PER 1/2 TABLET PO SCH (20:37)
[2016-12-10] MEDS: LIDOCAINE 5% OINT 30 GM TOP PRN (20:38)
[2016-12-10 22:00] VITALS: BP 110/60
[2016-12-11] MEDS: SODIUM CHLORIDE 0.9% INJ 10 ML SYR IV SCH ×2 (05:12→13:25)
[2016-12-11 05:44] LABS: MEAN CORPUSCULAR HGB CONC 34.4 g/dl (32.0-36.5); MEAN CORPUSCULAR VOLUME 90.2 fl (80.0-96.0); RED CELL DISTRIBUTION WIDTH 15.1 % (11.5-14.5); WHITE BLOOD COUNT 6.4 K/mm3 (4.0-10.0)
[2016-12-11 05:54] LABS: ANION GAP 7 MEQ/L (8-16); BLOOD UREA NITROGEN 23 MG/DL (7-18); CALCIUM LEVEL 7.6 MG/DL (8.5-10.1); CARBON DIOXIDE LEVEL 29 MEQ/L (21-32); CHLORIDE LEVEL 106 MEQ/L (98-107); CREATININE FOR GFR 0.72 MG/DL (0.70-1.30); GLOMERULAR FILTRATION RATE > 60.0 (>56); GLUCOSE, FASTING 79 MG/DL (70-105); POTASSIUM SERUM 3.9 MEQ/L (3.5-5.1); SODIUM LEVEL 142 MEQ/L (136-145)
[2016-12-11 06:00] VITALS: BP_SYST 100; BP_SYST 120; BP_SYST 140; BP_DIAS 60; BP_DIAS 85
[2016-12-11] MEDS: ACETAMINOPHEN TAB 650MG DOSE (2X325MG) PO PRN (06:53)
[2016-12-11] MEDS: HumaLOG INSULIN (NovoLOG) PER UNIT SC SCH ×2 (07:13→12:00)
[2016-12-11] MEDS: LEVEMIR (INSULIN DETEMIR) 1 UNITS/0.01ML SC SCH (09:17)
[2016-12-11] MEDS: ATORVASTATIN 20 MG TAB PO SCH (09:18)
[2016-12-11] MEDS: SENOKOT S TAB PO SCH (09:18)
[2016-12-11] MEDS: PANTOPRAZOLE 40MG TAB (PROTONIX) PO SCH (09:18)
[2016-12-11] MEDS: ASPIRIN 81 MG ENTERIC TAB PO SCH (09:18)
[2016-12-11] MEDS: predniSONE 20 MG TAB PO SCH (09:18)
[2016-12-11] MEDS: CitaloPRAM (CeleXA) 20 MG TAB PO SCH (09:18)
[2016-12-11] MEDS: MIDODRINE 2.5 MG TAB PO SCH (09:18)
[2016-12-11] MEDS: COSOPT OCUMETER PLUS 10ML (DORZOLAMIDE/TIMOLOL) OU SCH (09:19)
[2016-12-11] MEDS ORDERED: MIDO2.5T PO (10:36)
[2016-12-11] MEDS ORDERED: CAPT62TA PO (10:36)
[2016-12-11] MEDS ORDERED: CELE20TA PO (10:36)
[2016-12-11] MEDS ORDERED: PRED20TA PO (10:36)
[2016-12-11] MEDS: LIDOCAINE 5% OINT 30 GM TOP PRN (10:42)
[2016-12-11] MEDS: APIXABAN 5 MG TAB (ELIQUIS) PO SCH (10:45)
[2016-12-11] MEDS ORDERED: CYCL5TAB PO (13:02)
[2016-12-11 14:00] VITALS: BP 136/78
--- NOTE | 2016-12-11 14:48 | DSES ---
DATE OF ADMISSION: 12/02/2016 DATE OF DISCHARGE: 12/11/2016 DISCHARGE DIAGNOSIS: Cellulitis. SECONDARY DIAGNOSES: Metabolic encephalopathy. Orthostatic hypotension. Autonomic dysfunction. Type 1 diabetes. Giant cell arteritis. Brain mass. Dyslipidemia. Glaucoma. Gastroesophageal reflux disease (GERD). Migraines. Depression. Upper extremity deep vein thrombosis (DVT). HOSPITAL COURSE: The patient is a 56-year-old man who presented with metabolic encephalopathy. It was felt to be related to either steroid use versus cellulitis. The patient did have a fever and leukocytosis. He was treated with antibiotics and had a proper resolution of his symptoms of his upper extremity cellulitis. He was found to be persistently orthostatic and hypotensive while in the hospital and asymptomatic with it; however, he is prone to frequent falls. It was noted after extensive workup during this most recent hospitalization that it is related to autonomic dysfunction from longstanding diabetes, greater than 40 years. During this stay, the patient was noted to be an extremely brittle diabetic with frequent lows and highs and very difficult to control diabetes. He was on an elevated dose of steroids inhalation for his giant cell arteritis, which was weaned gradually throughout his stay back to his home dose. He was also found to have a right upper extremity deep vein thrombosis (DVT) and was continued on anticoagulation, incidental finding found during his stay as well as a brain mass, thought to be a meningioma. SUBJECTIVE: This morning the patient tells me he feels great and wants to go home and has no complaints whatsoever. OBJECTIVE: VITAL SIGNS: Temperature 98, pulse 84, respiratory rate 20, blood pressure 140/85 while lying supine with a heart rate of 103 and then 100/60 while standing with a heart rate of 73, oxygen saturation 95% on room air. GENERAL: He is a disheveled man sleeping peacefully when I enter the room, but easily arousable with verbal stimuli. He does not appear to be in any acute distress. He is awake, alert and oriented times three. HEENT: Cranial nerves II through XII are grossly intact. He has a chronic dysconjugate gaze. He has moist mucous membranes. No elevation of CVP. CARDIOVASCULAR EXAM: S1 and S2 regular. RESPIRATORY EXAM: Clear. ABDOMINAL EXAM: Benign. EXTREMITIES: No clubbing, cyanosis, or edema. NEUROLOGICAL EXAM: Nonfocal. LABORATORY STUDIES: WBC is 6.4, hemoglobin 8.9, hematocrit 25.9, platelet count 285. Most recent ESR was 17, it did have a peak of 35 earlier in his stay. Chemistry panel: Sodium 142, potassium 3.9, chloride 106, bicarb 29, BUN 23, creatinine 0.7. Microbiology: He had a wound culture positive for coag negative Staphylococcus from his right arm; however, all other cultures, stool occult blood were negative, C. difficile was negative, urine culture was negative, blood cultures were negative. IMAGING: The patient had a brain MRI on 12/05 that revealed small extra axial mass in the left side of the prepontine and medullary cisterns most likely presenting small meningioma or pannus like material. He had a normal right upper quadrant and gallbladder abdominal ultrasound and he had a duplex of the upper extremity that revealed continued evidence of thrombus involving the right subclavian through brachial and basilic veins, which was slightly decreased from the previous one. He did have a CT angiography of the head that revealed no obvious vascular abnormality and no acute intracranial pathology. He did have a neck CT that essentially normal, mild to moderate atheromatous plaquing at the carotid bulb. He had several CT scans of the head that revealed age related atrophy with no acute changes. ASSESSMENT/PLAN: This is a 56-year-old man with resolved metabolic encephalopathy and orthostatic hypotension secondary to autonomic dysfunction. 1. Metabolic encephalopathy, resolved. Likely related to cellulitis versus steroid use. He completed a course of antibiotics. 2. Orthostatic hypotension, likely related to autonomic neuropathy. Could consider outpatient referral to cardiology for further evaluation. He has been educated that his symptoms would likely be persistent and life long. He is optimized with a small dose of midodrine in the morning and captopril at night. His symptoms have been minimized. He has been cleared physical therapy and occupational therapy today. Now medically stable for discharge home with a wheelchair. He has been advised and educated on numerous occasions to remain in the wheelchair for a significant amount of time and not to remain on his feet, as he had in the past drop attacks. 3. Brittle type 1 diabetes. This was worsened by steroids. At this present time, he is back on his baseline steroids. He was previously on an insulin pump and would likely benefit from being put back on this. He will followup with his outpatient classified advertising clerk. 4. Giant cell arteritis. He was previously treated with an elevated dose of prednisone, however, now he is back on his home dose and his ESR is fairly unimpressive. Will continue him on prednisone 20 mg daily. 5. Right upper extremity deep vein thrombosis (DVT). He is on Eliquis. 6. Abnormal MRI with brain mass. Likely representing small meningioma or pannus material. He underwent MRI with concern for encephalopathy, which has resolved. This is an incidental finding and I recommend he have outpatient followup with a referral to Dr. Mercado of neurosurgery to have an further evaluation as needed. 7. Dyslipidemia. He is on a statin. 8. Glaucoma. He is on Cosopt and Xalatan. 9. Gastroesophageal reflux disease. He is on a proton pump inhibitor (PPI). 10. Migraines. He is on Maxalt. 11. Depression. He is on Celexa. 12. Deep vein thrombosis prophylaxis. He is on Eliquis. DISPOSITION: He is being discharged home with a script for a standard wheelchair. He is to followup with his primary care physician within 7 days. Followup with his classified advertising clerk within two weeks. Followup with his map and chart mounter within a month. He is to use a wheelchair at all times. He is to have a consistent carbohydrate diet. He continues to consider an outpatient cardiology referral for orthostatic hypotension related to autonomic dysfunction. Consider outpatient referral to neurosurgery, Dr. Mercado, for small incidental brain lesion. He is to return to the ER if his symptoms worsen. MEDICATIONS AT TIME OF DISCHARGE: - captopril 6.25 mg at bedtime - citalopram 20 mg daily - midodrine 2.5 mg every morning - prednisone 20 mg daily - Tylenol 1 gram every 6 hours as needed for pain - Eliquis 5 mg twice a day - aspirin 81 mg daily - atorvastatin 40 mg daily - dorzolamide/timolol one drop each eye twice a day - Flonase 50 mcg two sprays nasally twice a day as needed for allergies - NovoLog 3 units before meals, 30 units every morning, 20 units every evening - latanoprost one drop in each eye at bedtime - pantoprazole 40 mg twice a day - potassium phosphate 500 mg twice a day - rizatriptan 5 mg daily as needed for migraines Greater than 30 minutes spent organizing disposition.
== END 2016-12-11 16:34 | disposition home health service (06) | DRG 602 ==
LOC: EDBD 09:11 → M ED 09:11 → M ED INP 16:21 → M PCU 21:31 → M MSPAV 12-05 06:54
PROVIDERS: ADMIT Hospitalist; ATTEND Internal Medicine
DX: L03.113 Cellulitis of right upper limb (principal); G93.41 Metabolic encephalopathy; E10.649 Type 1 diabetes mellitus with hypoglycemia without coma; K21.9 Gastro-esophageal reflux disease without esophagitis; F32.9 Major depressive disorder, single episode, unspecified; E78.5 Hyperlipidemia, unspecified; G43.909 Migraine, unspecified, not intractable, without status migrainosus; I95.1 Orthostatic hypotension; H40.9 Unspecified glaucoma; M31.6 Other giant cell arteritis; R29.6 Repeated falls; E10.43 Type 1 diabetes mellitus with diabetic autonomic (poly)neuropathy; D32.0 Benign neoplasm of cerebral meninges; Z79.52 Long term (current) use of systemic steroids; Z79.01 Long term (current) use of anticoagulants; Z79.899 Other long term (current) drug therapy; Z79.82 Long term (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; Z91.19 Patient's noncompliance with other medical treatment and regimen; Z87.891 Personal history of nicotine dependence

== ENCOUNTER 2016-12-12 06:28 | Emergency (ER) | payer MEDICARE, MEDICAID ==
[~2016-12-12 06:28] MED LIST changes: +ASPI81TA24 PO; +CAPT62TA PO; +CELE20TA PO; +CYCL5TAB PO; +MIDO2.5T PO; +PROT1TAB2 PO; +RIZA5TAB PO
[2016-12-12 07:33] VITALS: BP 180/106
== END 2016-12-12 08:19 | disposition home or self-care (01) ==
LOC: M ED 06:28
DX: E11.649 Type 2 diabetes mellitus with hypoglycemia without coma (principal); K21.9 Gastro-esophageal reflux disease without esophagitis; G43.909 Migraine, unspecified, not intractable, without status migrainosus; Z79.82 Long term (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; Z79.4 Long term (current) use of insulin; Z79.899 Other long term (current) drug therapy

== ENCOUNTER 2016-12-16 07:12 | Emergency (ER) | payer MEDICARE, MEDICAID ==
[~2016-12-16] VITALS: Ht 175.3 cm; Wt 68.6 kg
[2016-12-16 07:41] VITALS: BP 130/70
[2016-12-16] MEDS ORDERED: DEXTROSE 50% 50 ML SYRINGE IV STA (07:49)
[2016-12-16] MEDS ORDERED: GLUCOSE 4 GM CHEW TABLET PO PRN (08:00)
--- NOTE | 2016-12-16 08:41 | REP ---
Clinical: Fall. Comparison: 12/05/2016 . Findings: Age-related atrophy and microvascular ischemic changes are appreciated. The ventricles and sulci are symmetric. Lee-white differentiation is maintained. There is no evidence for acute intracranial hemorrhage, mass/mass effect, pathology or infarction. No extra-axial fluid collection. Calvarium is intact. Paranasal sinuses and mastoid air cells are clear. Impression: Age related atrophy and microvascular ischemic changes. No acute intracranial hemorrhage, infarction, or mass/mass effect. Signed by Sandeep Patino MD 12/16/2016 08:32 A
[2016-12-16 08:45] LABS: BASO % 0.3 % (0.0-1.0); EOS # 0.1 K/mm3 (0.0-0.50); EOS % 0.6 % (0.0-3.0); LARGE UNSTAINED CELL # 0.2 K/mm3 (0.0-0.4); LARGE UNSTAINED CELL % 1.4 % (0.0-4.0); LYMPH # 1.1 K/mm3 (1.5-4.5); LYMPH % 10.2 % (24.0-44.0); MEAN CORPUSCULAR HEMOGLOBIN 30.7 pg (27.0-33.0); MEAN CORPUSCULAR HGB CONC 33.5 g/dl (32.0-36.5); MEAN CORPUSCULAR VOLUME 91.7 fl (80.0-96.0); MONO # 0.7 K/mm3 (0.0-0.8); MONO % 6.6 % (0.0-5.0); NEUTROPHILS # 8.5 K/mm3 (1.8-7.7); NEUTROPHILS % 80.9 % (36.0-66.0); PLATELET COUNT, AUTOMATED 270 k/mm3 (150-450); RED CELL DISTRIBUTION WIDTH 15.1 % (11.5-14.5); WHITE BLOOD COUNT 10.5 K/mm3 (4.0-10.0)
[2016-12-16 09:06] LABS: ANION GAP 10 MEQ/L (8-16); BLOOD UREA NITROGEN 29 MG/DL (7-18); CALCIUM LEVEL 8.2 MG/DL (8.5-10.1); CARBON DIOXIDE LEVEL 27 MEQ/L (21-32); CHLORIDE LEVEL 106 MEQ/L (98-107); GLOMERULAR FILTRATION RATE > 60.0 (>56); GLUCOSE, FASTING 167 MG/DL (70-105); SODIUM LEVEL 143 MEQ/L (136-145)
--- NOTE | 2016-12-16 09:06 | REP ---
Clinical: Trauma. Fall. Technique: AP-angled and lateral view of the sacrum/coccyx. Findings: The sacroiliac joints are symmetric and demonstrate age-related changes. Vascular calcifications are appreciated. No obvious sacrococcygeal fracture or subluxation is appreciated. Impression: Symmetric age-related changes to the bilateral sacroiliac joints. No obvious acute fracture or subluxation. Signed by Sandeep Patino MD 12/16/2016 08:58 A
== END 2016-12-16 11:36 | disposition home or self-care (01) ==
LOC: EDSEX 07:12 → M ED 07:12 → EDBD 07:12 → M ED 11:36
DX: E16.2 Hypoglycemia, unspecified (principal); E11.40 Type 2 diabetes mellitus with diabetic neuropathy, unspecified; I50.9 Heart failure, unspecified; I11.0 Hypertensive heart disease with heart failure; F33.9 Major depressive disorder, recurrent, unspecified; F41.9 Anxiety disorder, unspecified; Z79.899 Other long term (current) drug therapy; Z79.4 Long term (current) use of insulin; Z87.891 Personal history of nicotine dependence

== ENCOUNTER 2016-12-20 21:09 | Emergency (ER) | payer MEDICARE, MEDICAID ==
[~2016-12-20] VITALS: Ht 167.6 cm; Wt 69.1 kg
[2016-12-20] MEDS ORDERED: predniSONE 20 MG TAB PO ONE (21:45)
[2016-12-20 22:04] VITALS: BP 142/82
== END 2016-12-20 22:06 | disposition home or self-care (01) ==
LOC: M ED 21:09 → EDBD 21:09 → M ED 22:06
DX: E11.649 Type 2 diabetes mellitus with hypoglycemia without coma (principal); F32.9 Major depressive disorder, single episode, unspecified; E78.5 Hyperlipidemia, unspecified; M31.6 Other giant cell arteritis; Z79.82 Long term (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; Z79.4 Long term (current) use of insulin; Z79.899 Other long term (current) drug therapy

== ENCOUNTER → 2017-01-10 | Outpatient (CLI) | payer MEDICARE, MEDICAID ==
[~2017-01-10] MED LIST changes: +CLEO300C2 PO; +ONDA4TAB6; +PRED10TA2
--- NOTE | 2017-01-21 23:57 | ECWPNPC ---
PATIENT NAME: SEBASTIEN GARCIA : 1960 GENDER: MALE VISIT DATE: 01/10/2017 DISCHARGE DATE: 01/10/17 1700 VISIT LOCKED DATE TIME: PHYSICIAN: SEGUNDO ARCOS RESOURCE: SEGUNDO ARCOS REASON FOR APPOINTMENT 1. NECK PAIN HISTORY OF PRESENT ILLNESS HISTORY OF PRESENT ILLNESS: PAIN THE PATIENT DESCRIBES THE PAIN... 56 YEAR OLD MALE PATIENT WITH HISTORY OF CHRONIC NECK PAIN. PATIENT DESCRIBES THE PAIN ACHING, SHARP, STABBING, THROBBING, SORE, AND HAVING IT ALL THE TIME WITH A PAIN SCORE OF 7-8/10. PATIENT STATES HIS PAIN STARTED ROUGHLY TWO MONTHS AGO WHILE HE WAS HOSPITALIZED AND THOUGHT IT WAS FROM LAYING DOWN. HOWEVER, THE PAIN HAS PERSISTED AND HE IS UNSURE WHAT CAUSED IT. CURRENTLY THE PATIENT IS USING THE LIDODERM PATCH TO AID IN PAIN RELIEF. MR. GARCIA STATES THAT MOVING HIS HEAD IN ANY DIRECTIONS INCREASES THE PAIN IN HIS CERVICAL AREA. PATIENT DENIES UNEXPLAINABLE WEIGHT LOSS, FEVER, CHILLS, NEW CHANGES ON HER URINARY OR BOWEL CONTROL. FALL RISK SCREENING: SCREENING :NO FALLS IN THE PAST YEAR CURRENT MEDICATIONS TAKING RIZATRIPTAN BENZOATE 5 MG TABLET 1 TABLET NEEDED ONE TIME ORALLY AT THE ONSET OF THE HEADACHE, MAY REPEAT ONCE IN 2 HOURS IF NOT IMPROVED (8 HEADACHES A MONTH) TAKING PREDNISONE 20 MG TABLET 1 TABLET ORALLY ONCE A DAY TAKING TYLENOL EXTRA STRENGTH 500 MG TABLET 2 TABLETS NEEDED ORALLY EVERY 6 HRS TAKING ASPIRIN ADULT LOW DOSE 81 MG TABLET DELAYED RELEASE 1 TABLET ORALLY ONCE A DAY TAKING DORZOLAMIDE HCL 2 % SOLUTION 1 DROP INTO AFFECTED EYE OPHTHALMIC THREE TIMES A DAY TAKING LATANOPROST 0.005 % SOLUTION 1 DROP INTO AFFECTED EYE IN THE EVENING OPHTHALMIC ONCE A DAY TAKING NOVOLOG 100 UNIT/ML SOLUTION SUBCUTANEOUS , NOTES: INSULIN PUMP TAKING CITALOPRAM HYDROBROMIDE 20 MG TABLET 1 TABLET ORALLY DAILY TAKING LIDODERM 5 % PATCH 1 PATCH TO SKIN REMOVE AFTER 12 HOURS EXTERNALLY ONCE A DAY TAKING PANTOPRAZOLE SODIUM 40 MG TABLET DELAYED RELEASE 1 TABLET ORALLY ONCE A DAY TAKING ATORVASTATIN CALCIUM 40MG TABLET 1 TABLET ORALLY ONCE A DAY TAKING MIDODRINE HCL 2.5 MG TABLET 1 TABLET ORALLY THREE TIMES A DAY TAKING ELIQUIS 5 MG TABLET DIRECTED ORALLY BID TAKING GLUCAGON EMERGENCY 1 MG KIT INJECTION NOT-TAKING APIXABAN 5 MG TABLET ORALLY NOT-TAKING FLONASE 50 MCG/ACT SUSPENSION 1 SPRAY IN EACH NOSTRIL NASALLY ONCE A DAY NOT-TAKING POTASSIUM PHOSPHATE MONOBASIC 500 MG TABLET 2 TABLETS WITH MEALS AND AT BEDTIME ORALLY FOUR TIMES A DAY NOT-TAKING CAPTOPRIL 12.5 MG TABLET 1 TABLET ORALLY TWICE A DAY UNKNOWN GLUCOSAMINE , NOTES: PRE-ADMIT UNKNOWN GLUCAGEN DIAGNOSTIC KIT , NOTES: PRE-ADMIT MEDICATION LIST REVIEWED AND RECONCILED WITH THE PATIENT PAST MEDICAL HISTORY DIABETES TYPE 1 (INSULIN PUMP) TEMPORAL ARTERITIS PSORIASIS GLAUCOMA DVT 10/2016 AUTONOMIC INSTABILITY MENINGIOMA DIABETIC RETINOPAHTY ALLERGIES N.K.D.A. SURGICAL HISTORY FATTY TUMOR REMOVAL RIGHT KNEE SURGERY RIGHT WRIST LEFT ROTATOR CUFF IMPLANTED INSULIN PUMP FAMILY HISTORY FATHER: , DIAGNOSED WITH CANCER MOTHER: ALIVE 1941 YRS, DIAGNOSED WITH HEART DISEASE PATERNAL GRAND FATHER: , DIAGNOSED WITH OTHER PATERNAL GRAND MOTHER: MATERNAL GRAND FATHER: MATERNAL GRAND MOTHER: ALIVE, DIAGNOSED WITH OTHER 2 BROTHER(S) , 2 SISTER(S) - HEALTHY. 3DAUGHTER(S) - HEALTHY. FATHER: LEUKEMIAPATERNAL GF: EMPHYSEMIAMATERNAL GM: DEMENTIA. SOCIAL HISTORY GENERAL: TOBACCO USE ARE YOU A:FORMER SMOKER HOW LONG HAS IT BEEN SINCE YOU LAST SMOKED?5-10 YEARS VAPORNO E-CIGARETTENO LUNG CANCER SCREENING SMOKING STATUS:FORMER SMOKER BMI CARE GOAL FOLLOW-UP ABOVE NORMAL BMI FOLLOW-UPDIETARY MANAGEMENT EDUCATION, GUIDANCE, AND COUNSELING ALCOHOL SCREENING POINTS0 INTERPRETATIONNEGATIVE RECREATIONAL DRUG USE DRUG USE?NO CAFFEINE CAFFEINE USE?YES 2 CUPS COFFEE AND 2 CUPS TEA DAILY HIV / HEP-C SCREENING HIV TEST OFFERED TO PATIENT:YES DATE OFFERED:09/05/2016 TEST ACCEPTED:NO REASON:PATIENT DECLINED HEP-C TEST OFFERED TO PATIENT:YES DATE OFFERED:09/05/2016 TEST ACCEPTED:NO REASON:PATIENT DECLINED DIET: REGULAR. EXERCISE: DAILY, WALKS. MARITAL STATUS: .. PETS: 2 SERVICE DOGS. YAZIDI NO ANABAPTIST BELIEFS THAT WOULD IMPACT HEALTH CARE. LANGUAGE BOLIVIAN. EDUCATION GED. LEARNING BARRIERS / SPECIAL NEEDS CHANGE FROM LAST VISIT?NO BARRIERS TO LEARNING?NO HEARING IMPAIRED?NO VISION IMPAIRED?NO COGNITIVELY IMPAIRED?NO READINESS TO LEARN?YES LEARNING PREFERENCES?NO LEARNING CAPABILITIES PRESENT?YES EMOTIONAL BARRIERS?YES SPECIAL DEVICES?NO FUR BLENDER NEEDED?NO PAIN CLINIC PFS, CLERGY, PUBLIC HEALTH REFERRALS HAS THE PATIENT BEEN EDUCATED REGARDING HIS/HER PLAN OF CARE?YES HAS THE PATIENT BEEN EDUCATED REGARDING PAIN, THE RISK FOR PAIN, THE IMPORTANCE OF EFFECTIVE PAIN MANAGEMENT, AND THE PAIN ASSESSMENT PROCESS?YES ADVANCE DIRECTIVES HEALTH CARE PROXY?YES NAME OF HCP ANI GARCIA, MOTHER CONTACT # FOR HCP [phone] DO YOU HAVE A DNR?NO LIVING WILL?NO POWER OF [place]AR[place]?NO HOSPITALIZATION/MAJOR DIAGNOSTIC PROCEDURE SURGERY RELATED [facility] 10/2016 HYPOGLYCEMIA 12/02/2016-12/11/2016 REVIEW OF SYSTEMS REVIEWED BY: PROVIDER: SEGUNDO ARCOS MD . CONSTITUTIONAL: ANY CHANGE IN YOUR MEDICAL CONDITION? NO . CHILLS NO . FEVER NO . INFECTION: DO YOU HAVE NEW INFECTIONS? NO . DO YOU HAVE HISTORY OF MRSA? NO . MUSCULOSKELETAL: ANY NEW PATTERNS OF PAIN OR NUMBNESS? NO . GASTROENTEROLOGY: ANY NEW CHANGE IN BOWEL CONTROL? NO . GENITOURINARY: ANY NEW CHANGE IN BLADDER CONTROL? NO . IS THERE A CHANCE YOU COULD BE ? NO . HEMATOLOGY/LYMPH: DO YOU TAKE ANY BLOOD THINNERS? (FOR EXAMPLE- COUMADIN, PLAVIX, AGGRENOX, PLATEL, PRADAXA, OR XARELTO) YES, ELAQUIS . WHEN WAS YOUR LAST DOSE? DATE: TIME: . NEUROLOGY: HAVE YOU FALLEN IN THE PAST 6 MONTHS? YES, PT STATES HE FELL FROM LOSS OF BALANCE, PT SUSTAINED INJURIES, AMBULANCE WAS CALLED, PT BROUGHT TO [facility] ER AND ADMITTED . ANY NEW EXTREMITY NUMBNESS OR WEAKNESS? NO . CARDIOLOGY: DO YOU HAVE A PACEMAKER OR DEFIBRILLATOR? NO . RESPIRATORY: HAVE YOU BEEN SICK IN THE PAST WEEK? NO . FEVER NO . FLU LIKE SYMPTOMS? NO . COUGH NO . INTEGUMENTARY: DO YOU HAVE ANY RASHES OR OPEN SORES? NO . ALLERGIC/IMMUNO: ARE YOU ALLERGIC TO SHELLFISH OR IV DYE? NO . ANY NEW ALLERGIES? NO . PSYCHIATRIC: DO YOU HAVE THOUGHTS OF HURTING YOURSELF OR SOMEONE ELSE? NO . ARE YOU ABUSED, NEGLECTED, OR IN AN UNSAFE ENVIRONMENT? NO . ENDOCRINOLOGY: ARE YOU DIABETIC? YES . OTHER: DO YOU NEED ANY PRESCRIPTIONS? NO . IF YES, PLEASE LIST: ____ . ANY NEW PROBLEMS WITH YOUR MEDICATIONS? NO . WHEN DID YOU LAST EAT? ____ . WHEN DID YOU LAST DRINK? ____ . WHAT DID YOU LAST DRINK? ____ . NAME OF PERSON DRIVING YOU HOME? ____ . DO YOU HAVE ANY OTHER QUESTIONS OR CONCERNS NO . VITAL SIGNS WT 155 LBS, HT 5'9", BMI 22.89 INDEX, BP 114/65 MM HG, HR 104 /MIN, RR 16 /MIN, TEMP 98.9 F, OXYGEN SAT % 100, REVIEWED BY: EM. EXAMINATION : PATIENT IS ALERT O X 3 AND COOPERATIVE. TENDERNESS IN THE CERVICAL AREA AND PARASPINAL MUSCLE GROUP. BANDS OF TISSUE, RESTRICTION OF MOVEMENT, AND PRESENCE OF TRIGGER POINTS IN THE CERVICAL AREA. UNSTEADY GAIT. MRI OF THE CERVICAL SPINE DONE ON 11/15/16 SHOWS MILD DEGENERATIVE DISC DISEASE, A DISC BULGE AT C5-C6, AND SPURRING AT C3-C4. ASSESSMENTS MYALGIA - M79.1 (PRIMARY) SPONDYLOSIS OF CERVICAL REGION WITHOUT MYELOPATHY OR RADICULOPATHY - M47.812 TREATMENT MYALGIA NOTES: WE DISCUSSED SEVERAL ISSUES WITH MR. GARCIA'S PAIN MANAGEMENT CASE. AT THIS TIME I WOULD LIKE THE PATIENT TO START USING CYCLOBENZAPRINE TO AID IN MUSCLE SPASMS AND PAIN. PATIENT WAS ADVISED TO STOP THE MEDICATION IF HE HAS ANY ADVERSE SIDE EFFECTS. DUE TO THE SEVERE SPASTICITY IN THE CERVICAL AREA I WOULD LIKE TO PROCEED WITH A TRIGGER POINT INJECTIONS. WE DISCUSSED TRYING A CERVICAL FACET BLOCK IF THE PATIENT DOESN'T RECEIVE LONG LASTING RELIEF FROM THE TRIGGER POINT INJECTION. INSTRUCTIONS WERE GIVEN, QUESTIONS WERE ANSWERED, PATIENT REPORTS UNDERSTANDING AND AGREES WITH THE PLAN. I, FIDENCIO PENN, DOCUMENTED THE ABOVE INFORMATION ACTING A SCRIBE FOR DR. ARCOS. I HAVE REVIEWED THE ABOVE DOCUMENT, WRITTEN BY FIDENCIO BONNER AND I VERIFY THAT IT IS ACCURATE. DEAR DR. STAPLES:THANK YOU FOR YOUR KIND REFERRAL OF MR. GARCIA. IF YOU WANT TO DISCUSS HIS CASE WITH ME PLEASE CALL ME AT THE PAIN CENTER AT [phone]. SINCERELY,SEGUNDO ARCOS, [facility]. OTHERS START CYCLOBENZAPRINE HCL TABLET, 10 MG, 1 TABLET NEEDED, ORALLY FOR SPASM AND PAIN, EVERY 6 HOURS NEEDEDMDD3, 30 DAYS, 50, REFILLS 1 PROCEDURE CODES FA211 ESTABILISHED PATIENT [facility]AC[facility] CHARGE [id number] DOC MEDS VERIFIED W/PT OR RE [id number] PAIN ASSESS POS TOOL F/U PLAN DOC DISPOSITION & COMMUNICATION FOLLOW UP TPI AFTER APPROVAL ELECTRONICALLY SIGNED BY SEGUNDO ARCOS MD ON 01/21/2017 AT 01:45 PM EDT DISCLAIMER : THIS IS A VISIT SUMMARY EXTRACTED FROM THE [employer] CHART. IT IS NOT A COPY OF THE [employer] PROGRESS NOTE. ERLIN
== END ==
LOC: M PAIN 15:00
PROVIDERS: ATTEND Anesthesiology
DX: G89.29 Other chronic pain (principal); M47.812 Spondylosis without myelopathy or radiculopathy, cervical region; M79.1 Myalgia; E11.40 Type 2 diabetes mellitus with diabetic neuropathy, unspecified; M31.6 Other giant cell arteritis; I10 Essential (primary) hypertension; G90.9 Disorder of the autonomic nervous system, unspecified; Z79.01 Long term (current) use of anticoagulants; Z79.52 Long term (current) use of systemic steroids; Z79.82 Long term (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; Z79.4 Long term (current) use of insulin; Z79.899 Other long term (current) drug therapy; Z87.891 Personal history of nicotine dependence

== ENCOUNTER → 2017-01-19 | Outpatient (CLI) | payer MEDICARE, MEDICAID ==
[~2017-01-19] MED LIST changes: +BUPIVACAINE HCL 0.25% 10 ML VIAL As Ordered ONE; +BUPIVACAINE HCL 0.25% 30 ML VIAL As Ordered ONE; +diazePAM 5 MG TAB As Ordered ONE; +oxyCODONE 5MG TAB As Ordered ONE
--- NOTE | 2017-01-22 23:49 | ECWPNPC ---
PATIENT NAME: SEBASTIEN GARCIA : 1960 GENDER: MALE VISIT DATE: 01/19/2017 DISCHARGE DATE: 01/19/17 1037 VISIT LOCKED DATE TIME: PHYSICIAN: SEGUNDO ARCOS RESOURCE: SEGUNDO ARCOS REASON FOR APPOINTMENT 1. TPI HISTORY OF PRESENT ILLNESS HISTORY OF PRESENT ILLNESS: PAIN THE PATIENT DESCRIBES THE PAIN... FALL RISK SCREENING: SCREENING :NO FALLS IN THE PAST YEAR CURRENT MEDICATIONS TAKING RIZATRIPTAN BENZOATE 5 MG TABLET 1 TABLET NEEDED ONE TIME ORALLY AT THE ONSET OF THE HEADACHE, MAY REPEAT ONCE IN 2 HOURS IF NOT IMPROVED (8 HEADACHES A MONTH), NOTES: 01/18/172099 TAKING PREDNISONE 20 MG TABLET 1 TABLET ORALLY ONCE A DAY, NOTES: 01/18/17799 TAKING TYLENOL EXTRA STRENGTH 500 MG TABLET 2 TABLETS NEEDED ORALLY EVERY 6 HRS, NOTES: 01/18/172099 TAKING ASPIRIN ADULT LOW DOSE 81 MG TABLET DELAYED RELEASE 1 TABLET ORALLY ONCE A DAY, NOTES: 01/18/17799 TAKING DORZOLAMIDE HCL 2 % SOLUTION 1 DROP INTO AFFECTED EYE OPHTHALMIC THREE TIMES A DAY, NOTES: 01/18/17799 TAKING LATANOPROST 0.005 % SOLUTION 1 DROP INTO AFFECTED EYE IN THE EVENING OPHTHALMIC ONCE A DAY, NOTES: 01/18/172199 TAKING NOVOLOG 100 UNIT/ML SOLUTION SUBCUTANEOUS , NOTES: INSULIN PUMP TAKING CITALOPRAM HYDROBROMIDE 20 MG TABLET 1 TABLET ORALLY DAILY, NOTES: 01/18/17799 TAKING LIDODERM 5 % PATCH 1 PATCH TO SKIN REMOVE AFTER 12 HOURS EXTERNALLY ONCE A DAY, NOTES: 01/16/17 TAKING PANTOPRAZOLE SODIUM 40 MG TABLET DELAYED RELEASE 1 TABLET ORALLY ONCE A DAY, NOTES: 01/18/17899 TAKING ATORVASTATIN CALCIUM 40MG TABLET 1 TABLET ORALLY ONCE A DAY, NOTES: 01/18/17799 TAKING MIDODRINE HCL 2.5 MG TABLET 1 TABLET ORALLY THREE TIMES A DAY, NOTES: 01/18/192099 TAKING ELIQUIS 5 MG TABLET DIRECTED ORALLY BID, NOTES: 2099 TAKING GLUCAGON EMERGENCY 1 MG KIT INJECTION , NOTES: HAS NOT NEEDED TAKING ONDANSETRON 4MG ODT TABLET DISINTEGRATING DISSOLVE ONE TABLET IN MOUTH EVERY 8 HOURS , NOTES: > 1 MONTH TAKING METAMUCIL , NOTES: 01/18/17799 TAKING FLEXERIL 10 MG TABLET 1 TABLET NEEDED ORALLY THREE TIMES A DAY, NOTES: 01/18/17 2100 TAKING GLUCOSAMINE , NOTES: 01/18/17 0800 NOT-TAKING CYCLOBENZAPRINE HCL 10 MG TABLET 1 TABLET NEEDED ORALLY FOR SPASM AND PAIN EVERY 6 HOURS NEEDEDMDD3, NOTES: NOT TAKING PER PRIMARY R/T HYPOTENSION NOT-TAKING APIXABAN 5 MG TABLET ORALLY NOT-TAKING FLONASE 50 MCG/ACT SUSPENSION 1 SPRAY IN EACH NOSTRIL NASALLY ONCE A DAY NOT-TAKING POTASSIUM PHOSPHATE MONOBASIC 500 MG TABLET 2 TABLETS WITH MEALS AND AT BEDTIME ORALLY FOUR TIMES A DAY NOT-TAKING CAPTOPRIL 12.5 MG TABLET 1 TABLET ORALLY TWICE A DAY NOT-TAKING GLUCAGEN DIAGNOSTIC KIT , NOTES: PRE-ADMIT MEDICATION LIST REVIEWED AND RECONCILED WITH THE PATIENT PAST MEDICAL HISTORY DIABETES TYPE 1 (INSULIN PUMP) TEMPORAL ARTERITIS PSORIASIS GLAUCOMA DVT 10/2016 AUTONOMIC INSTABILITY MENINGIOMA DIABETIC RETINOPAHTY ALLERGIES N.K.D.A. REVIEW OF SYSTEMS REVIEWED BY: PROVIDER: . CONSTITUTIONAL: ANY CHANGE IN YOUR MEDICAL CONDITION? YES PT HAD A BLOOD CLOT AT THE SITE OF HIS PICC LINE IN EARLY , HAS SINCE HAD PICC LINE REMOVED AND IS CURRENTLY ON ELIQUIS. . CHILLS NO . FEVER NO . INFECTION: DO YOU HAVE NEW INFECTIONS? NO . DO YOU HAVE HISTORY OF MRSA? NO . MUSCULOSKELETAL: ANY NEW PATTERNS OF PAIN OR NUMBNESS? NO . GASTROENTEROLOGY: ANY NEW CHANGE IN BOWEL CONTROL? NO . GENITOURINARY: ANY NEW CHANGE IN BLADDER CONTROL? NO . IS THERE A CHANCE YOU COULD BE ? NO . HEMATOLOGY/LYMPH: DO YOU TAKE ANY BLOOD THINNERS? (FOR EXAMPLE- COUMADIN, PLAVIX, AGGRENOX, PLATEL, PRADAXA, OR XARELTO) YES ELIQUIS . WHEN WAS YOUR LAST DOSE? DATE: TIME: 01/18/17 2100 . NEUROLOGY: HAVE YOU FALLEN IN THE PAST 6 MONTHS? YES PT REPORTS HE FELL AFTER GETTING FAINT AND DIZZY. HE STATES HE IS BEING FOLLOWED BY DR. WILKINSON, AND HAS A SMALL LESION IN HIS BRAIN. . ANY NEW EXTREMITY NUMBNESS OR WEAKNESS? NO . CARDIOLOGY: DO YOU HAVE A PACEMAKER OR DEFIBRILLATOR? NO . RESPIRATORY: HAVE YOU BEEN SICK IN THE PAST WEEK? NO . FEVER NO . FLU LIKE SYMPTOMS? NO . COUGH NO . INTEGUMENTARY: DO YOU HAVE ANY RASHES OR OPEN SORES? YES MULTIPLE BRUISES, SMALL SCABBED AREAS OVER ARMS, STATES IT IS FROM HIS HOSPITALIZATION . ALLERGIC/IMMUNO: ARE YOU ALLERGIC TO SHELLFISH OR IV DYE? NO . ANY NEW ALLERGIES? NO . PSYCHIATRIC: DO YOU HAVE THOUGHTS OF HURTING YOURSELF OR SOMEONE ELSE? NO . ARE YOU ABUSED, NEGLECTED, OR IN AN UNSAFE ENVIRONMENT? NO . ENDOCRINOLOGY: ARE YOU DIABETIC? YES . OTHER: DO YOU NEED ANY PRESCRIPTIONS? NO . IF YES, PLEASE LIST: ____ . ANY NEW PROBLEMS WITH YOUR MEDICATIONS? NO . WHEN DID YOU LAST EAT? ____01/18/17 2100 . WHEN DID YOU LAST DRINK? ____01/18/17 2400 . WHAT DID YOU LAST DRINK? ____WATER . NAME OF PERSON DRIVING YOU HOME? ____ANI GARCIA . DO YOU HAVE ANY OTHER QUESTIONS OR CONCERNS NO . VITAL SIGNS WT 165 LBS, HT 5'9", BMI 24.36 INDEX, BP 131/86 MM HG, HR 102 /MIN, RR 18 /MIN, TEMP 98.4 F, OXYGEN SAT % 100%, BLOOD GLUCOSE LEVEL 180 THIS AM, SAFE IN ENV? (Y/N) YES, NA INITIALS OK 08:57, REVIEWED BY: DOROTEO. ASSESSMENTS MYALGIA - M79.1 (PRIMARY) PROCEDURES PN TRIGGER POINT INJECTION WITH STEROIDS PRE PROCEDURE DIAGNOSIS 1. MYALGIA 2. PAIN AT BILATERAL NECK AREA POST PROCEDURE DIAGNOSIS 1. MYALGIA 2. PAIN AT BILATERAL NECK AREA PROCEDURE TRIGGER POINT INJECTION AT BILATERAL NECK AREA SURGEON DR. SEGUNDO ARCOS ACCT EXEC NONE ANESTHESIA LOCAL PRE PROCEDURE NOTE THE PATIENT HAS A HISTORY OF CHRONIC PAIN AT THE RIGHT AND LEFT NECK AREA. I EVALUATE THE PATIENT AND REVIEWED THE CHART. THERE IS EVIDENCE OF BANDS OF TISSUE WITH RESTRICTION OF MOVEMENT AND PRESENCE OF TRIGGER POINT AT THE AFFECTED AREA. I WENT OVER THE RISKS, ALTERNATIVES, AND BENEFITS ASSOCIATED WITH THIS PROCEDURE. THE PATIENT WOULD LIKE TO PROCEED AND GIVE CONSENT TO PERFORMED THE PROCEDURE. THE PATIENT DENIES UNEXPLAINABLE WEIGHT LOSS, FEVER, CHILLS, OR NEW CHANGES IN URINARY OR BOWEL CONTROL DESCRIPTION OF PROCEDURE THE PATIENT WAS BROUGHT TO THE PROCEDURE ROOM AND PLACED IN THE SITTING POSITION. THE AREA WAS CLEANED WITH ALCOHOL. THE PROCEDURE WAS DONE USING ASEPTIC STERILE TECHNIQUE. I CHECKED LATERALITY AND THE LEVEL WHERE THE PROCEDURE WAS GOING TO BE PERFORMED WITH THE PATIENT AND THE SUPPORTING STAFF AT THE MOMENT OF THE TIME OUT IN THE PROCEDURE ROOM. USING A 25-GAUGE NEEDLE, TRIGGER POINTS WERE INJECTED AT THE RIGHT AND LEFT NECK AREA WITH A TOTAL OF 40 ML OF BUPIVACAINE 0.25% AND KENALOG 40 MG. THERE WAS NO EVIDENCE OF BLOOD, PARESTHESIA OR CEREBROSPINAL FLUID DURING THE PROCEDURE. THE PATIENT WAS SENT TO THE RECOVERY ROOM. THE PATIENT WAS MOVING THE EXTREMITIES AND DOING WELL. THERE WAS NO COMPLICATION DURING THE PROCEDURE POST PROCEDURE NOTE THE PATIENT WILL BE SEEN IN A FOLLOW UP IN THE NEXT FEW WEEKS. INSTRUCTIONS WERE GIVEN, QUESTIONS WERE ANSWERED, AND THE PATIENT EXPRESSED UNDERSTANDING AND AGREES WITH THE PLAN. I, FIDENCIO PENN, DOCUMENTED THE ABOVE INFORMATION ACTING A SCRIBE FOR DR. ARCOS. I HAVE REVIEWED THE ABOVE DOCUMENT, WRITTEN BY FIDENCIO BONNER AND I VERIFY THAT IT IS ACCURATE PROCEDURE CODES 00539 INJ TRIGGER POINT /[facility] [place] DISPOSITION & COMMUNICATION FOLLOW UP 3 WEEKS ELECTRONICALLY SIGNED BY SEGUNDO ARCOS MD ON 01/22/2017 AT 11:48 AM EDT DISCLAIMER : THIS IS A VISIT SUMMARY EXTRACTED FROM THE [employer] CHART. IT IS NOT A COPY OF THE [employer] PROGRESS NOTE. ERLIN
== END ==
LOC: M PAIN 08:30
PROVIDERS: ATTEND Anesthesiology
DX: G89.29 Other chronic pain (principal); M54.2 Cervicalgia; M79.1 Myalgia; E11.9 Type 2 diabetes mellitus without complications; I10 Essential (primary) hypertension; G90.9 Disorder of the autonomic nervous system, unspecified; Z79.01 Long term (current) use of anticoagulants; D49.6 Neoplasm of unspecified behavior of brain; Z79.52 Long term (current) use of systemic steroids; Z79.82 Long term (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; Z79.4 Long term (current) use of insulin; Z79.899 Other long term (current) drug therapy

== ENCOUNTER 2017-01-22 17:12 | Emergency (ER) | payer MEDICARE, MEDICAID ==
[~2017-01-22] VITALS: Ht 162.6 cm; Wt 75.0 kg
[~2017-01-22 17:12] MED LIST changes: -BUPIVACAINE HCL 0.25% 10 ML VIAL As Ordered ONE; -BUPIVACAINE HCL 0.25% 30 ML VIAL As Ordered ONE; -CLEO300C2 PO; -ONDA4TAB6; -PRED10TA2; -diazePAM 5 MG TAB As Ordered ONE; -oxyCODONE 5MG TAB As Ordered ONE
[2017-01-22] MEDS ORDERED: oxyCODONE 10 MG CR TAB PO ONE (18:45)
[2017-01-22 19:15] VITALS: BP 133/63
== END 2017-01-22 19:46 | disposition home or self-care (01) ==
LOC: EDBD 17:12 → M ED 17:12
DX: G89.29 Other chronic pain (principal); M54.2 Cervicalgia; R51 Headache; E11.9 Type 2 diabetes mellitus without complications; I10 Essential (primary) hypertension; N28.9 Disorder of kidney and ureter, unspecified; Z86.718 Personal history of other venous thrombosis and embolism; Z87.891 Personal history of nicotine dependence; Z79.82 Long term (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; Z79.4 Long term (current) use of insulin; Z79.899 Other long term (current) drug therapy

== ENCOUNTER 2017-01-23 13:08 | Emergency (ER) | payer MEDICARE, MEDICAID ==
[~2017-01-23] VITALS: Ht 175.3 cm; Wt 75.0 kg
[2017-01-23] MEDS ORDERED: diphenhydrAMINE INJ 50MG/ML VIAL (J1200) IV STA (16:06)
[2017-01-23] MEDS ORDERED: NS 1,000 ML IV ONE (16:15)
[2017-01-23] MEDS ORDERED: METOCLOPRAMIDE INJ 10MG/2ML VIAL (J2765) IV ONE (16:15)
[2017-01-23 16:37] LABS: BASO # 0.1 10^3/uL (0.0-0.2); BASO % 0.8 % (0.0-1.0); EOS # 0.7 10^3/uL (0.0-0.50); EOS % 6.8 % (0.0-3.0); IMMATURE GRANULOCYTE % 1.7 % (0-0); LYMPH % 19.5 % (24.0-44.0); MEAN CORPUSCULAR HEMOGLOBIN 28.8 pg (27.0-33.0); MEAN CORPUSCULAR HGB CONC 32.1 g/dl (32.0-36.5); MEAN CORPUSCULAR VOLUME 89.8 fl (80.0-96.0); MONO % 9.6 % (0.0-5.0); NEUTROPHILS # 6.2 10^3/uL (1.8-7.7); NEUTROPHILS % 61.6 % (36.0-66.0); PLATELET COUNT, AUTOMATED 420 10^3/uL (150-450); RED CELL DISTRIBUTION WIDTH 13.8 % (11.5-14.5); WHITE BLOOD COUNT 10.1 10^3/uL (4.0-10.0)
[2017-01-23 16:58] LABS: ANION GAP 8 MEQ/L (8-16); BLOOD UREA NITROGEN 12 MG/DL (7-18); CALCIUM LEVEL 8.6 MG/DL (8.5-10.1); CARBON DIOXIDE LEVEL 30 MEQ/L (21-32); CHLORIDE LEVEL 100 MEQ/L (98-107); CREATININE FOR GFR 1.21 MG/DL (0.70-1.30); GLOMERULAR FILTRATION RATE > 60.0 (>56); GLUCOSE, FASTING 145 MG/DL (70-105); POTASSIUM SERUM 3.7 MEQ/L (3.5-5.1); SODIUM LEVEL 138 MEQ/L (136-145)
--- NOTE | 2017-01-23 17:09 | REP ---
CERVICAL SPINE SERIES: Full cervical spine series is performed including flexion and extension views. Eight total views are obtained. Vertebral bodies are normal in height and are well aligned. There is no prevertebral soft tissue swelling. There is moderate spurring at C5 and mild spurring of C6 and C7. There is mild diffuse narrowing and sclerosis of the posterior facet joints. There appear to be carotid vascular calcifications bilaterally. IMPRESSION: No plain film evidence of fracture or dislocation. Signed by Kevin Lee MD 01/24/2017 04:31 P
[2017-01-23] MEDS ORDERED: ISOVUE-370 76% 100ML VIAL (Q9967) As Ordered ONE (17:13)
--- NOTE | 2017-01-23 17:50 | REP ---
CT brain without and with IV contrast: History: Severe recurrent headaches. Evaluate for tumor or bleed. Comparison CT study December 16, 2016. CT contrast dose: 75 mL as of intravenous Isovue 370. CT findings: Digital preliminary air saw operator radiograph is unremarkable. Bone window settings demonstrate an intact bony calvarium. Visualized paranasal sinuses are clear. There is moderate vascular calcification in the distal carotid arteries bilaterally. There is mild diffuse cerebral atrophy again noted. Small vessel atherosclerotic changes are noted in the periventricular white matter as on prior study. There is no evidence of intracranial hemorrhage. No acute infarction is seen. No mass, extra-axial fluid collection or midline shift. Contrast enhanced study shows enhancement in normal vascular structures. No abnormal contrast enhancement is appreciated. Impression: Diffuse atrophy, small vessel changes and vascular calcification again noted. No acute intracranial lesion. Signed by Terrell Pichardo MD 01/23/2017 05:53 P
[2017-01-23 19:01] VITALS: BP 124/84
[2017-01-25 14:17] LABS: Lyme Disease IgG/IgM Antibodie <0.91 ISR (0.00-0.90); Lyme Disease IgM Ab Quantitati <0.80 index (0.00-0.79)
== END 2017-01-23 19:06 | disposition home or self-care (01) ==
LOC: M ED 13:08 → EDBD 13:08 → M ED 19:06
DX: R51 Headache (principal); M54.2 Cervicalgia; I50.9 Heart failure, unspecified; E11.40 Type 2 diabetes mellitus with diabetic neuropathy, unspecified; I10 Essential (primary) hypertension; F41.9 Anxiety disorder, unspecified; F32.9 Major depressive disorder, single episode, unspecified; M31.6 Other giant cell arteritis; G43.909 Migraine, unspecified, not intractable, without status migrainosus; E78.00 Pure hypercholesterolemia, unspecified; Z86.718 Personal history of other venous thrombosis and embolism; Z87.891 Personal history of nicotine dependence; Z79.82 Long term (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; Z79.899 Other long term (current) drug therapy; Z79.4 Long term (current) use of insulin
CPT/HCPCS: 70470; 72052; 80048; 85025; 86617; 96374; 96375; 99284; J1200; J2765; Q9967

== ENCOUNTER 2017-02-12 11:56 | Emergency (ER) | payer MEDICARE, MEDICAID ==
[~2017-02-12] VITALS: Ht 175.3 cm; Wt 74.5 kg
[2017-02-12 11:56] VITALS: BP 177/103
[~2017-02-12 11:56] MED LIST changes: -CLEO300C2 PO; -ONDA4TAB6; -PRED10TA2
[2017-02-12] MEDS ORDERED: PRED10TA2 (12:12)
[2017-02-12] MEDS ORDERED: ONDA4TAB6 (12:12)
[2017-02-12] MEDS ORDERED: CLEO300C2 PO (13:29)
[2017-02-12] MEDS ORDERED: CLINDAMYCIN 150 MG CAP PO ONE (13:30)
== END 2017-02-12 13:47 | disposition home or self-care (01) ==
LOC: M ED 11:56
DX: L03.113 Cellulitis of right upper limb (principal); W18.09XA Striking against other object with subsequent fall, initial encounter; Y92.099 Unspecified place in other non-institutional residence as the place of occurrence of the external cause; I82.621 Acute embolism and thrombosis of deep veins of right upper extremity; E10.65 Type 1 diabetes mellitus with hyperglycemia; M31.6 Other giant cell arteritis; S92.514A Nondisplaced fracture of proximal phalanx of right lesser toe(s), initial encounter for closed fracture; X58.XXXA Exposure to other specified factors, initial encounter; Y92.9 Unspecified place or not applicable; Y93.9 Activity, unspecified; I10 Essential (primary) hypertension; F41.9 Anxiety disorder, unspecified; F32.9 Major depressive disorder, single episode, unspecified; Z79.82 Long term (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; Z79.899 Other long term (current) drug therapy; Z79.4 Long term (current) use of insulin

== ENCOUNTER → 2017-02-12 | Outpatient (CLI) | payer MEDICARE, MEDICAID ==
[~2017-02-12] MED LIST changes: +CLEO300C2 PO; +ONDA4TAB6; +PRED10TA2
[2017-02-12 11:40] LABS: BASO % 0.2 % (0.0-1.0); EOS # 0.1 10^3/uL (0.0-0.50); EOS % 0.3 % (0.0-3.0); LYMPH # 1.5 10^3/uL (1.5-4.5); LYMPH % 9.9 % (24.0-44.0); MEAN CORPUSCULAR HEMOGLOBIN 28.9 pg (27.0-33.0); MEAN CORPUSCULAR HGB CONC 32.3 g/dl (32.0-36.5); MEAN CORPUSCULAR VOLUME 89.5 fl (80.0-96.0); MONO # 0.9 10^3/uL (0.0-0.8); MONO % 5.6 % (0.0-5.0); NEUTROPHILS # 12.7 10^3/uL (1.8-7.7); PLATELET COUNT, AUTOMATED 339 10^3/uL (150-450); RED CELL DISTRIBUTION WIDTH 13.5 % (11.5-14.5); WHITE BLOOD COUNT 15.3 10^3/uL (4.0-10.0)
[2017-02-12 12:00] LABS: ERYTHROCYTE SEDIMENTATION RATE 49 mm/hr (0-20)
[2017-02-12 12:10] LABS: ALBUMIN 3.2 GM/DL (3.2-5.2); ALBUMIN/GLOBULIN RATIO 0.86 (1.00-1.93); ALKALINE PHOSPHATASE 196 U/L (45-117); ALT/SGPT 104 U/L (12-78); ANION GAP 4 MEQ/L (8-16); AST/SGOT 77 U/L (7-37); BILIRUBIN,TOTAL 0.4 MG/DL (0.2-1.0); BLOOD UREA NITROGEN 18 MG/DL (7-18); CARBON DIOXIDE LEVEL 32 MEQ/L (21-32); CHLORIDE LEVEL 100 MEQ/L (98-107); CREATININE FOR GFR 1.19 MG/DL (0.70-1.30); GLOMERULAR FILTRATION RATE > 60.0 (>56); GLUCOSE, FASTING 263 MG/DL (70-105); SODIUM LEVEL 136 MEQ/L (136-145); TOTAL PROTEIN 6.9 GM/DL (6.4-8.2)
[2017-02-12 12:11] LABS: POTASSIUM SERUM 5.3 MEQ/L (3.5-5.1)
--- NOTE | 2017-02-12 12:22 | REP ---
RIGHT FOOT: Four views of the right foot are performed. There is a nondisplaced fracture of the base of the 2nd middle phalanx. I see no other evidence of acute fracture or dislocation. Diffuse vascular calcifications are present. There is mild narrowing at the 1st metatarsophalangeal joint with subchondral sclerosis. IMPRESSION: Nondisplaced fracture base of 2nd middle phalanx. Signed by Kevin Lee MD 02/12/2017 12:45 P
== END ==
LOC: M LAB 10:22
PROVIDERS: ATTEND Internal Medicine
DX: E10.65 Type 1 diabetes mellitus with hyperglycemia (principal); M31.6 Other giant cell arteritis; S92.514A Nondisplaced fracture of proximal phalanx of right lesser toe(s), initial encounter for closed fracture; X58.XXXA Exposure to other specified factors, initial encounter; Y92.9 Unspecified place or not applicable; Y93.9 Activity, unspecified

== ENCOUNTER → 2017-02-12 | Outpatient (CLI) | payer MEDICARE, MEDICAID ==
--- NOTE | 2017-02-12 11:27 | REP ---
Clinical: History of right upper extremity deep venous thrombosis. Technique: Real time munoz scale and color Doppler evaluation using linear high frequency transducer. Comparison: 12/03/2016. Findings: Small amount of residual nonocclusive thrombus noted in the right subclavian/axillary and basilic veins which appears decreased when compared to prior examination. Remainder examination appears normal and no occlusive thrombus is otherwise identified. Impression: Decreased amount of residual nonocclusive thrombus in the right upper extremity. No new occlusive thrombus identified. Signed by Sandeep Patino MD 02/12/2017 11:18 A
== END ==
LOC: M RAD 10:12
PROVIDERS: ATTEND Family Medicine
DX: I82.621 Acute embolism and thrombosis of deep veins of right upper extremity (principal)

== ENCOUNTER → 2017-02-28 | Outpatient (CLI) | payer MEDICARE, MEDICAID ==
[~2017-02-28] MED LIST changes: +CLEO300C2 PO; +ONDA4TAB6; +PRED10TA2
--- NOTE | 2017-03-16 01:26 | ECWPNPC ---
PATIENT NAME: SEBASTIEN GARCIA : 1960 GENDER: MALE VISIT DATE: 02/28/2017 DISCHARGE DATE: 02/28/17 1222 VISIT LOCKED DATE TIME: PHYSICIAN: JEFF PECK RESOURCE: JEFF PECK REASON FOR APPOINTMENT 1. POST PROCEDURE-PT WAS FEELING A LITTLE DIZZY ON WAY UP TOOK A W/C RIDE HISTORY OF PRESENT ILLNESS HISTORY OF PRESENT ILLNESS: HERE FOR POST PROCEDURE F/U.HAD TPI NECK ON 01-19-17.REPORTS >50% IMPROVEMENT IN NECK PAIN THAT CONTINUES TODAY.RATING PAIN VAS 5/10.DISCUSSED TREATMENT PLAN.DESCRIBES NECK PAIN CONSTANT ACHING AND THROBBING PAIN. PAIN THE PATIENT DESCRIBES THE PAIN... FALL RISK SCREENING: SCREENING :NO FALLS IN THE PAST YEAR CURRENT MEDICATIONS TAKING RIZATRIPTAN BENZOATE 5 MG TABLET 1 TABLET NEEDED ONE TIME ORALLY AT THE ONSET OF THE HEADACHE, MAY REPEAT ONCE IN 2 HOURS IF NOT IMPROVED (8 HEADACHES A MONTH) TAKING PREDNISONE 20 MG TABLET 1 TABLET ORALLY ONCE A DAY, NOTES: TAPERED DOWN TO 17 MG DAILY TAKING TYLENOL EXTRA STRENGTH 500 MG TABLET 2 TABLETS NEEDED ORALLY EVERY 6 HRS TAKING ASPIRIN ADULT LOW DOSE 81 MG TABLET DELAYED RELEASE 1 TABLET ORALLY ONCE A DAY TAKING DORZOLAMIDE HCL 2 % SOLUTION 1 DROP INTO AFFECTED EYE OPHTHALMIC THREE TIMES A DAY TAKING LATANOPROST 0.005 % SOLUTION 1 DROP INTO AFFECTED EYE IN THE EVENING OPHTHALMIC ONCE A DAY TAKING NOVOLOG 100 UNIT/ML SOLUTION SUBCUTANEOUS TAKING CITALOPRAM HYDROBROMIDE 20 MG TABLET 1 TABLET ORALLY DAILY TAKING LIDODERM 5 % PATCH 1 PATCH TO SKIN REMOVE AFTER 12 HOURS EXTERNALLY ONCE A DAY TAKING PANTOPRAZOLE SODIUM 40 MG TABLET DELAYED RELEASE 1 TABLET ORALLY ONCE A DAY TAKING ATORVASTATIN CALCIUM 40MG TABLET 1 TABLET ORALLY ONCE A DAY TAKING MIDODRINE HCL 2.5 MG TABLET 1 TABLET ORALLY THREE TIMES A DAY TAKING GLUCAGON EMERGENCY 1 MG KIT INJECTION TAKING ONDANSETRON 4MG ODT TABLET DISINTEGRATING DISSOLVE ONE TABLET IN MOUTH EVERY 8 HOURS TAKING METAMUCIL TAKING FLEXERIL 10 MG TABLET 1 TABLET NEEDED ORALLY THREE TIMES A DAY TAKING GLUCOSAMINE NOT-TAKING ELIQUIS 5 MG TABLET DIRECTED ORALLY BID NOT-TAKING CYCLOBENZAPRINE HCL 10 MG TABLET 1 TABLET NEEDED ORALLY FOR SPASM AND PAIN EVERY 6 HOURS NEEDEDMDD3, NOTES: NOT TAKING PER PRIMARY R/T HYPOTENSION NOT-TAKING APIXABAN 5 MG TABLET ORALLY NOT-TAKING FLONASE 50 MCG/ACT SUSPENSION 1 SPRAY IN EACH NOSTRIL NASALLY ONCE A DAY NOT-TAKING POTASSIUM PHOSPHATE MONOBASIC 500 MG TABLET 2 TABLETS WITH MEALS AND AT BEDTIME ORALLY FOUR TIMES A DAY NOT-TAKING CAPTOPRIL 12.5 MG TABLET 1 TABLET ORALLY TWICE A DAY NOT-TAKING GLUCAGEN DIAGNOSTIC KIT , NOTES: PRE-ADMIT MEDICATION LIST REVIEWED AND RECONCILED WITH THE PATIENT PAST MEDICAL HISTORY DIABETES TYPE 1 (INSULIN PUMP) TEMPORAL ARTERITIS PSORIASIS GLAUCOMA DVT 10/2016 AUTONOMIC INSTABILITY MENINGIOMA DIABETIC RETINOPAHTY ALLERGIES N.K.D.A. SURGICAL HISTORY FATTY TUMOR REMOVAL RIGHT KNEE SURGERY RIGHT WRIST LEFT ROTATOR CUFF IMPLANTED INSULIN PUMP SOCIAL HISTORY GENERAL: TOBACCO USE ARE YOU A:FORMER SMOKER HOW LONG HAS IT BEEN SINCE YOU LAST SMOKED?5-10 YEARS VAPORNO E-CIGARETTENO LUNG CANCER SCREENING SMOKING STATUS:FORMER SMOKER BMI CARE GOAL FOLLOW-UP ABOVE NORMAL BMI FOLLOW-UPDIETARY MANAGEMENT EDUCATION, GUIDANCE, AND COUNSELING ALCOHOL SCREENING DID YOU HAVE A DRINK CONTAINING ALCOHOL IN THE PAST YEAR?NO POINTS0 INTERPRETATIONNEGATIVE RECREATIONAL DRUG USE DRUG USE?NO CAFFEINE CAFFEINE USE?YES 2 CUPS COFFEE AND 2 CUPS TEA DAILY HIV / HEP-C SCREENING HIV TEST OFFERED TO PATIENT:YES DATE OFFERED:09/05/2016 TEST ACCEPTED:NO REASON:PATIENT DECLINED HEP-C TEST OFFERED TO PATIENT:YES DATE OFFERED:09/05/2016 TEST ACCEPTED:NO REASON:PATIENT DECLINED DIET: REGULAR. EXERCISE: DAILY, WALKS. MARITAL STATUS: .. PETS: 2 SERVICE DOGS. BUDDHISM NO MUSLIM BELIEFS THAT WOULD IMPACT HEALTH CARE. LANGUAGE FRISIAN. EDUCATION GED. LEARNING BARRIERS / SPECIAL NEEDS CHANGE FROM LAST VISIT?NO BARRIERS TO LEARNING?NO HEARING IMPAIRED?NO VISION IMPAIRED?NO COGNITIVELY IMPAIRED?NO READINESS TO LEARN?YES LEARNING PREFERENCES?NO LEARNING CAPABILITIES PRESENT?YES EMOTIONAL BARRIERS?YES SPECIAL DEVICES?NO SEAFOOD MANAGER NEEDED?NO PAIN CLINIC PFS, CLERGY, PUBLIC HEALTH REFERRALS HAS THE PATIENT BEEN EDUCATED REGARDING HIS/HER PLAN OF CARE?YES HAS THE PATIENT BEEN EDUCATED REGARDING PAIN, THE RISK FOR PAIN, THE IMPORTANCE OF EFFECTIVE PAIN MANAGEMENT, AND THE PAIN ASSESSMENT PROCESS?YES ADVANCE DIRECTIVES HEALTH CARE PROXY?YES NAME OF HCP ANI GARCIA, MOTHER CONTACT # FOR HCP [phone] DO YOU HAVE A DNR?NO LIVING WILL?NO POWER OF DIESEL LUBE TECH?NO HOSPITALIZATION/MAJOR DIAGNOSTIC PROCEDURE SURGERY RELATED [facility] 10/2016 HYPOGLYCEMIA 12/02/2016-12/11/2016 REVIEW OF SYSTEMS REVIEWED BY: PROVIDER: JEFF COOPER . CONSTITUTIONAL: ANY CHANGE IN YOUR MEDICAL CONDITION? YES, PT REPORTS FEELING LIGHTHEADED TODAY, PT PRESENTS BY HOSPITAL WHEELCHAIR, MOTHER AT SIDE . CHILLS NO . FEVER NO . INFECTION: DO YOU HAVE NEW INFECTIONS? NO . DO YOU HAVE HISTORY OF MRSA? NO . MUSCULOSKELETAL: ANY NEW PATTERNS OF PAIN OR NUMBNESS? NO . GASTROENTEROLOGY: ANY NEW CHANGE IN BOWEL CONTROL? NO . GENITOURINARY: ANY NEW CHANGE IN BLADDER CONTROL? NO . IS THERE A CHANCE YOU COULD BE ? NO . HEMATOLOGY/LYMPH: DO YOU TAKE ANY BLOOD THINNERS? (FOR EXAMPLE- COUMADIN, PLAVIX, AGGRENOX, PLATEL, PRADAXA, OR XARELTO) NO . WHEN WAS YOUR LAST DOSE? DATE: TIME: . NEUROLOGY: HAVE YOU FALLEN IN THE PAST 6 MONTHS? NO . ANY NEW EXTREMITY NUMBNESS OR WEAKNESS? NO . CARDIOLOGY: DO YOU HAVE A PACEMAKER OR DEFIBRILLATOR? NO . RESPIRATORY: HAVE YOU BEEN SICK IN THE PAST WEEK? NO . FEVER NO . FLU LIKE SYMPTOMS? NO . COUGH NO . INTEGUMENTARY: DO YOU HAVE ANY RASHES OR OPEN SORES? NO . ALLERGIC/IMMUNO: ARE YOU ALLERGIC TO SHELLFISH OR IV DYE? NO . ANY NEW ALLERGIES? NO . PSYCHIATRIC: DO YOU HAVE THOUGHTS OF HURTING YOURSELF OR SOMEONE ELSE? NO . ARE YOU ABUSED, NEGLECTED, OR IN AN UNSAFE ENVIRONMENT? NO . ENDOCRINOLOGY: ARE YOU DIABETIC? NO . OTHER: DO YOU NEED ANY PRESCRIPTIONS? NO . IF YES, PLEASE LIST: ____ . ANY NEW PROBLEMS WITH YOUR MEDICATIONS? NO . WHEN DID YOU LAST EAT? ____ . WHEN DID YOU LAST DRINK? ____ . WHAT DID YOU LAST DRINK? ____ . NAME OF PERSON DRIVING YOU HOME? ____ . DO YOU HAVE ANY OTHER QUESTIONS OR CONCERNS YES, PT STATES I WISH IT WOULD JUST STOP. I ALWAYS SUFFER FIRST THING IN THE MORNING . VITAL SIGNS WT 166.6 LBS, HT 69", BMI 24.60 INDEX, BP 109/76 MM HG, HR 95 /MIN, RR 16 /MIN, TEMP 97.0 F, OXYGEN SAT % 100%, BLOOD GLUCOSE LEVEL 242, PER PT MACHINE, NA INITIALS TL 1136, REVIEWED BY: EM. EXAMINATION GENERAL EXAMINATION: GENERAL APPEARANCE:COMFORTABLE. PSYCHAFFECT NORMAL. NECK:TRACHEA MIDLINE. NO CERVICAL OR SUPRACLAVICULAR LYMPHADENOPATHY NOTED. LUNGS:LUNG DE [place] ARE CLEAR TO AUSCULTATION BILATERALLY. GOOD MOVEMENT OF AIR. HEART:S1, S2 IN A REGULAR RATE AND RHYTHM. NO SIGNIFICANT MURMURS, RUBS OR GALLOPS NOTED. CERVICALTRIGGER POINTS ELICITED OVER TRAPEZIUS BILATERAL. ASSESSMENTS MYALGIA - M79.1 (PRIMARY) CERVICALGIA - M54.2 TREATMENT MYALGIA NOTES: TPI NECKPT 2XWK X 6WK-MYOFASCIAL RELEASE. PROCEDURE CODES FA211 ESTABILISHED PATIENT [facility] CHARGE DISPOSITION & COMMUNICATION FOLLOW UP 2WK POST (REASON: TPI NECK) ELECTRONICALLY SIGNED BY ALLISON DUQUE ON 03/15/2017 AT 02:59 PM EST DISCLAIMER : THIS IS A VISIT SUMMARY EXTRACTED FROM THE [employer] CHART. IT IS NOT A COPY OF THE [employer] PROGRESS NOTE. ERLIN
== END ==
LOC: M PAIN 11:15
PROVIDERS: ATTEND Nurse Practitioner Family
DX: M79.1 Myalgia (principal); M54.2 Cervicalgia; Z79.4 Long term (current) use of insulin; Z79.82 Long term (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; Z79.899 Other long term (current) drug therapy; Z87.891 Personal history of nicotine dependence

== ENCOUNTER → 2017-03-15 | Outpatient (CLI) | payer MEDICARE, MEDICAID ==
[~2017-03-15] MED LIST changes: +BUPIVACAINE HCL 0.25% 10 ML VIAL As Ordered ONE; +BUPIVACAINE HCL 0.25% 30 ML VIAL As Ordered ONE; +diazePAM 5 MG TAB As Ordered ONE; +oxyCODONE 5MG TAB As Ordered ONE
--- NOTE | 2017-03-26 23:55 | ECWPNPC ---
PATIENT NAME: SEBASTIEN GARCIA : 1960 GENDER: MALE VISIT DATE: 03/15/2017 DISCHARGE DATE: 03/15/17 1416 VISIT LOCKED DATE TIME: PHYSICIAN: SEGUNDO ARCOS RESOURCE: SEGUNDO ARCOS REASON FOR APPOINTMENT 1. TPI NECK HISTORY OF PRESENT ILLNESS HISTORY OF PRESENT ILLNESS: PAIN THE PATIENT DESCRIBES THE PAIN... FALL RISK SCREENING: SCREENING :NO FALLS IN THE PAST YEAR CURRENT MEDICATIONS TAKING FIBER THERAPY , NOTES: 03/14/17/@0800 DISCONTINUED ELIQUIS 5 MG TABLET DIRECTED ORALLY BID DISCONTINUED APIXABAN 5 MG TABLET ORALLY UNKNOWN RIZATRIPTAN BENZOATE 5 MG TABLET 1 TABLET NEEDED ONE TIME ORALLY AT THE ONSET OF THE HEADACHE, MAY REPEAT ONCE IN 2 HOURS IF NOT IMPROVED (8 HEADACHES A MONTH), NOTES: 1 MONTH AGO UNKNOWN PREDNISONE 20 MG TABLET 1 TABLET ORALLY ONCE A DAY, NOTES: TAPERED DOWN TO 15 MG DAILY@03/14/17@0800 UNKNOWN TYLENOL EXTRA STRENGTH 500 MG TABLET 2 TABLETS NEEDED ORALLY EVERY 6 HRS, NOTES: 03/14/17@0500 UNKNOWN ASPIRIN ADULT LOW DOSE 81 MG TABLET DELAYED RELEASE 1 TABLET ORALLY ONCE A DAY, NOTES: 03/14/17@0800 UNKNOWN DORZOLAMIDE HCL 2 % SOLUTION 1 DROP INTO AFFECTED EYE OPHTHALMIC THREE TIMES A DAY, NOTES: 03/14/17@0800 UNKNOWN LATANOPROST 0.005 % SOLUTION 1 DROP INTO AFFECTED EYE IN THE EVENING OPHTHALMIC ONCE A DAY, NOTES: 0800 UNKNOWN NOVOLOG 100 UNIT/ML SOLUTION SUBCUTANEOUS , NOTES: 03/14/17@2300 UNKNOWN CITALOPRAM HYDROBROMIDE 20 MG TABLET 1 TABLET ORALLY DAILY, NOTES: 03/14/17@0800 UNKNOWN LIDODERM 5 % PATCH 1 PATCH TO SKIN REMOVE AFTER 12 HOURS EXTERNALLY ONCE A DAY, NOTES: 10 DAYS AGO UNKNOWN PANTOPRAZOLE SODIUM 40 MG TABLET DELAYED RELEASE 1 TABLET ORALLY ONCE A DAY, NOTES: 03/14/17@0800 UNKNOWN ATORVASTATIN CALCIUM 40MG TABLET 1 TABLET ORALLY ONCE A DAY, NOTES: 03/14/17@0800 UNKNOWN MIDODRINE HCL 2.5 MG TABLET 1 TABLET ORALLY THREE TIMES A DAY, NOTES: 03/14/17@2100 UNKNOWN GLUCAGON EMERGENCY 1 MG KIT INJECTION , NOTES: 04/18 UNKNOWN ONDANSETRON 4MG ODT TABLET DISINTEGRATING DISSOLVE ONE TABLET IN MOUTH EVERY 8 HOURS , NOTES: 1 MONTH AGO UNKNOWN METAMUCIL , NOTES: UNKNOWN FLEXERIL 10 MG TABLET 1 TABLET NEEDED ORALLY THREE TIMES A DAY, NOTES: 03/14/17@1300 UNKNOWN GLUCOSAMINE , NOTES: 03/14/17@0800 UNKNOWN CYCLOBENZAPRINE HCL 10 MG TABLET 1 TABLET NEEDED ORALLY FOR SPASM AND PAIN EVERY 6 HOURS NEEDEDMDD3, NOTES: NOT TAKING PER PRIMARY R/T HYPOTENSION UNKNOWN FLONASE 50 MCG/ACT SUSPENSION 1 SPRAY IN EACH NOSTRIL NASALLY ONCE A DAY UNKNOWN POTASSIUM PHOSPHATE MONOBASIC 500 MG TABLET 2 TABLETS WITH MEALS AND AT BEDTIME ORALLY FOUR TIMES A DAY, NOTES: 03/14/17@0800 UNKNOWN CAPTOPRIL 12.5 MG TABLET 1 TABLET ORALLY TWICE A DAY, NOTES: 03/14/17@0800 UNKNOWN GLUCAGEN DIAGNOSTIC KIT , NOTES: PRE-ADMIT MEDICATION LIST REVIEWED AND RECONCILED WITH THE PATIENT PAST MEDICAL HISTORY DIABETES TYPE 1 (INSULIN PUMP) TEMPORAL ARTERITIS PSORIASIS GLAUCOMA DVT 10/2016 AUTONOMIC INSTABILITY MENINGIOMA DIABETIC RETINOPAHTY ALLERGIES N.K.D.A. SOCIAL HISTORY GENERAL: TOBACCO USE ARE YOU A:FORMER SMOKER HOW LONG HAS IT BEEN SINCE YOU LAST SMOKED?5-10 YEARS VAPORNO E-CIGARETTENO LUNG CANCER SCREENING SMOKING STATUS:FORMER SMOKER BMI CARE GOAL FOLLOW-UP ABOVE NORMAL BMI FOLLOW-UPDIETARY MANAGEMENT EDUCATION, GUIDANCE, AND COUNSELING ALCOHOL SCREENING DID YOU HAVE A DRINK CONTAINING ALCOHOL IN THE PAST YEAR?NO POINTS0 INTERPRETATIONNEGATIVE RECREATIONAL DRUG USE DRUG USE?NO CAFFEINE CAFFEINE USE?YES 2 CUPS COFFEE AND 2 CUPS TEA DAILY HIV / HEP-C SCREENING HIV TEST OFFERED TO PATIENT:YES DATE OFFERED:09/05/2016 TEST ACCEPTED:NO REASON:PATIENT DECLINED HEP-C TEST OFFERED TO PATIENT:YES DATE OFFERED:09/05/2016 TEST ACCEPTED:NO REASON:PATIENT DECLINED DIET: REGULAR. EXERCISE: DAILY, WALKS. MARITAL STATUS: .. PETS: 2 SERVICE DOGS. [facility] NO [facility] BELIEFS THAT WOULD IMPACT HEALTH CARE. LANGUAGE PORTUGUESE. EDUCATION GED. 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 CONSTITUTIONAL: ANY CHANGE IN YOUR MEDICAL CONDITION? NO . CHILLS NO . FEVER NO . INFECTION: DO YOU HAVE NEW INFECTIONS? NO . DO YOU HAVE HISTORY OF MRSA? NO . MUSCULOSKELETAL: ANY NEW PATTERNS OF PAIN OR NUMBNESS? NO . GASTROENTEROLOGY: ANY NEW CHANGE IN BOWEL CONTROL? NO . GENITOURINARY: ANY NEW CHANGE IN BLADDER CONTROL? NO . IS THERE A CHANCE YOU COULD BE ? NO . HEMATOLOGY/LYMPH: DO YOU TAKE ANY BLOOD THINNERS? (FOR EXAMPLE- COUMADIN, PLAVIX, AGGRENOX, PLATEL, PRADAXA, OR XARELTO) NO . WHEN WAS YOUR LAST DOSE? DATE: TIME: 01/2017 . NEUROLOGY: HAVE YOU FALLEN IN THE PAST 6 MONTHS? YES . ANY NEW EXTREMITY NUMBNESS OR WEAKNESS? NO . CARDIOLOGY: DO YOU HAVE A PACEMAKER OR DEFIBRILLATOR? NO . RESPIRATORY: HAVE YOU BEEN SICK IN THE PAST WEEK? NO . FEVER NO . FLU LIKE SYMPTOMS? NO . COUGH NO . INTEGUMENTARY: DO YOU HAVE ANY RASHES OR OPEN SORES? NO . ALLERGIC/IMMUNO: ARE YOU ALLERGIC TO SHELLFISH OR IV DYE? NO . ANY NEW ALLERGIES? NO . PSYCHIATRIC: DO YOU HAVE THOUGHTS OF HURTING YOURSELF OR SOMEONE ELSE? NO . ARE YOU ABUSED, NEGLECTED, OR IN AN UNSAFE ENVIRONMENT? NO . ENDOCRINOLOGY: ARE YOU DIABETIC? YES . OTHER: DO YOU NEED ANY PRESCRIPTIONS? YES . IF YES, PLEASE LIST: ____FLEXERIL . ANY NEW PROBLEMS WITH YOUR MEDICATIONS? NO . WHEN DID YOU LAST EAT? ____03/15/17 . WHEN DID YOU LAST DRINK? ____03/15/17 . WHAT DID YOU LAST DRINK? ____SODA . NAME OF PERSON DRIVING YOU HOME? ____ . DO YOU HAVE ANY OTHER QUESTIONS OR CONCERNS NO . VITAL SIGNS WT 166.6 LBS, HT 69", BMI 24.60 INDEX, BP 121/73 MM HG, HR 87 /MIN, RR 16 /MIN, TEMP 99.0 F, OXYGEN SAT % 99%, SAFE IN ENV? (Y/N) YES, NA INITIALS TL 1027, REVIEWED BY: BASIL. ASSESSMENTS MYALGIA - M79.1 (PRIMARY) PROCEDURES PN TRIGGER POINT INJECTION NO STEROIDS PRE PROCEDURE DIAGNOSIS 1. MYALGIA 2. PAIN AT BILATERAL NECK AREA AND BILATERAL SHOULDER AREA POST PROCEDURE DIAGNOSIS 1. MYALGIA 2. PAIN AT BILATERAL NECK AREA AND BILATERAL SHOULDER AREA PROCEDURE TRIGGER POINT INJECTION AT BILATERAL NECK AREA AND BILATERAL SHOULDER AREA SURGEON DR. SEGUNDO ARCOS EMERGENCY DEPARTMENT NURSE NONE ANESTHESIA LOCAL PRE PROCEDURE NOTE 56 YEAR-OLD PATIENT WITH HISTORY OF CHRONIC PAIN AT RIGHT AND LEFT NECK AREA AND RIGHT AND LEFT SHOULDER AREA. I EVALUATED THE PATIENT AND REVIEWED THE CHART. THERE IS EVIDENCE OF BANDS OF TISSUE WITH RESTRICTION OF MOVEMENT AND PRESENCE OF TRIGGER POINT AT THE AFFECTED AREA. I WENT OVER THE RISKS, ALTERNATIVES, AND BENEFITS ASSOCIATED WITH THIS PROCEDURE. THE PATIENT WOULD LIKE TO PROCEED AND GAVE CONSENT TO PERFORM THE PROCEDURE. THE PATIENT DENIES UNEXPLAINABLE WEIGHT LOSS, FEVER, CHILLS, OR NEW CHANGES IN URINARY OR BOWEL CONTROL. DESCRIPTION OF PROCEDURE THE PATIENT WAS BROUGHT TO THE PROCEDURE ROOM AND PLACED IN THE SITTING PRONE POSITION. THE AREA WAS CLEANED WITH ALCOHOL. THE PROCEDURE WAS DONE USING ASEPTIC STERILE TECHNIQUES. I CHECKED LATERALITY AND THE LEVEL WHERE THE PROCEDURE WAS GOING TO BE PERFORMED WITH THE PATIENT AND THE SUPPORTING STAFF AT THE MOMENT OF THE TIME OUT IN THE PROCEDURE ROOM. USING A 25-GAUGE NEEDLE, TRIGGER POINTS WERE INJECTED AT THE RIGHT AND LEFT NECK AREA AND RIGHT AND LEFT SHOULDER AREA WITH A TOTAL OF 40 ML OF BUPIVACAINE 0.25%. AGREED WITH THE PATIENT THE PROCEDURE WAS DONE WITHOUT STEROIDS. THERE WAS NO EVIDENCE OF BLOOD, PARESTHESIA OR CEREBROSPINAL FLUID DURING THE PROCEDURE. THE PATIENT WAS SENT TO THE RECOVERY ROOM. THE PATIENT WAS MOVING THE EXTREMITIES AND DOING WELL. THERE WAS NO COMPLICATION DURING THE PROCEDURE. POST PROCEDURE NOTE THE PATIENT WILL BE SEEN IN A FOLLOW UP IN THE NEXT FEW WEEKS. INSTRUCTIONS WERE GIVEN, QUESTIONS WERE ANSWERED, AND THE PATIENT EXPRESSED UNDERSTANDING AND AGREED WITH THE PLAN. I, FIDENCIO PENN, DOCUMENTED THE ABOVE INFORMATION ACTING A SCRIBE FOR DR. ARCOS. I, DR. ARCOS, HAVE REVIEWED THE ABOVE DOCUMENT, SCRIBED BY FIDENCIO PENN, AND I VERIFY THAT IT IS ACCURATE PROCEDURE CODES 84592 INJECT TRIGGER POINTS 3/> DISPOSITION & COMMUNICATION FOLLOW UP 3 WEEKS ELECTRONICALLY SIGNED BY SEGUNDO ARCOS MD ON 03/26/2017 AT 11:00 PM EST DISCLAIMER : THIS IS A VISIT SUMMARY EXTRACTED FROM THE [employer] CHART. IT IS NOT A COPY OF THE [employer] PROGRESS NOTE. ERLIN
== END ==
LOC: M PAIN 10:15
PROVIDERS: ATTEND Anesthesiology
DX: G89.29 Other chronic pain (principal); M79.1 Myalgia; E10.8 Type 1 diabetes mellitus with unspecified complications; Z79.4 Long term (current) use of insulin; Z79.82 Long term (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; Z79.899 Other long term (current) drug therapy; Z87.891 Personal history of nicotine dependence

== ENCOUNTER 2017-04-02 07:38 | Inpatient (IN) | payer MEDICARE, MEDICAID ==
[2017-04-02] MEDS: ONDANSETRON 4MG/2ML VIAL (J2405) IV (09:00)
[2017-04-02] MEDS ORDERED: COSOPT OCUMETER PLUS 10ML (DORZOLAMIDE/TIMOLOL) OU (09:00)
[2017-04-02] MEDS: MORPHINE 4 MG/ML 1ML SYRINGE IV ×2 (09:03→12:56)
[2017-04-02 09:06] LABS: BASO # 0.1 10^3/uL (0.0-0.2); BASO % 0.4 % (0.0-1.0); EOS # 0.1 10^3/uL (0.0-0.50); EOS % 0.8 % (0.0-3.0); HEMATOCRIT 34.7 % (42.0-52.0); HEMOGLOBIN 11.2 g/dl (14.0-18.0); IMMATURE GRANULOCYTE # 0.1 10^3/uL (0-0); IMMATURE GRANULOCYTE % 0.6 % (0-0); LYMPH # 3.4 10^3/uL (1.5-4.5); LYMPH % 24.1 % (24.0-44.0); MEAN CORPUSCULAR HEMOGLOBIN 27.9 pg (27.0-33.0); MEAN CORPUSCULAR HGB CONC 32.3 g/dl (32.0-36.5); MEAN CORPUSCULAR VOLUME 86.3 fl (80.0-96.0); MONO # 1.3 10^3/uL (0.0-0.8); MONO % 9.1 % (0.0-5.0); NEUTROPHILS # 9.2 10^3/uL (1.8-7.7); PLATELET COUNT, AUTOMATED 301 10^3/uL (150-450); RED BLOOD COUNT 4.02 10^6/uL (4.30-6.10); RED CELL DISTRIBUTION WIDTH 13.8 % (11.5-14.5); WHITE BLOOD COUNT 14.2 10^3/uL (4.0-10.0)
[2017-04-02 09:49] LABS: ERYTHROCYTE SEDIMENTATION RATE 47 mm/hr (0-20)
[2017-04-02 10:06] LABS: ALBUMIN 3.4 GM/DL (3.2-5.2); ALBUMIN/GLOBULIN RATIO 0.97 (1.00-1.93); ALKALINE PHOSPHATASE 195 U/L (45-117); ALT/SGPT 62 U/L (12-78); ANION GAP 9 MEQ/L (8-16); AST/SGOT 29 U/L (7-37); BILIRUBIN,TOTAL 0.6 MG/DL (0.2-1.0); BLOOD UREA NITROGEN 15 MG/DL (7-18); C REACTIVE PROTEIN QUANTITATIV 1.35 MG/DL (0.00-0.30); CALCIUM LEVEL 8.8 MG/DL (8.5-10.1); CARBON DIOXIDE LEVEL 28 MEQ/L (21-32); CHLORIDE LEVEL 102 MEQ/L (98-107); CPK CREATINE PHOSPHOKINASE 46 U/L (39-308); CREATININE FOR GFR 1.19 MG/DL (0.70-1.30); GLOMERULAR FILTRATION RATE > 60.0 (>56); GLUCOSE, FASTING 121 MG/DL (70-105); MB/CK RELATIVE INDEX 2.17 (< OR =4); POTASSIUM SERUM 3.7 MEQ/L (3.5-5.1); SODIUM LEVEL 139 MEQ/L (136-145); TOTAL PROTEIN 6.9 GM/DL (6.4-8.2); TROPONIN I < 0.02 NG/ML (< 0.10); URIC ACID 4.1 MG/DL (3.5-7.2)
[2017-04-02] MEDS ORDERED: ONDANSETRON 4MG/2ML VIAL (J2405) IV (11:00)
[2017-04-02] MEDS: VANCOMYCIN HCL 1,000 MG, VIAL MATE ADAPTER 1 EACH in D5W 250 ML IV (11:10)
[2017-04-02 11:41] LABS: ESTIMATED AVERAGE GLUCOSE 249 MG/DL (60-110); HEMOGLOBIN A1c 10.3 %
[2017-04-02 11:54] LABS: PROLACTIN 23.9 NG/ML (2.1-17.7)
[2017-04-02] MEDS ORDERED: HumaLOG INSULIN (NovoLOG) PER UNIT SC (12:15)
[2017-04-02] MEDS: predniSONE 10 MG TAB PO (12:56)
[2017-04-02] MEDS: MIDODRINE 2.5 MG TAB PO (13:00)
[2017-04-02] MEDS: PANTOPRAZOLE 40MG TAB (PROTONIX) PO (14:14)
[2017-04-02] MEDS: CitaloPRAM (CeleXA) 20 MG TAB PO (14:14)
[2017-04-02] MEDS: MIDODRINE 5 MG TAB PO ×2 (14:14→18:16)
[2017-04-02] MEDS: ATORVASTATIN 20 MG TAB PO (14:15)
[2017-04-02] MEDS: ASPIRIN 81 MG ENTERIC TAB PO (14:15)
[2017-04-02] MEDS: ACETAMINOPHEN TAB 650MG DOSE (2X325MG) PO (14:16)
[2017-04-02] MEDS: predniSONE 1 MG TAB PO (14:22)
[2017-04-02 14:33] LABS: BEDSIDE GLUCOSE 116 MG/DL (70-105)
[2017-04-02] MEDS ORDERED: SLF 3 ML SYR IV (18:30)
[2017-04-02 18:35] LABS: CPK CREATINE PHOSPHOKINASE 35 U/L (39-308); MB/CK RELATIVE INDEX 2.85 (< OR =4); TROPONIN I < 0.02 NG/ML (< 0.10)
[2017-04-02] MEDS: NS 1,000 ML IV (18:42)
[2017-04-02] MEDS ORDERED: COSOPT OU (21:00)
[2017-04-02] MEDS: SLF 3 ML SYR IV (21:22)
[2017-04-02] MEDS: LATANOPROST 0.005% OPHTH SOLN 2.5 ML OU (21:22)
[2017-04-03 00:23] LABS: CPK CREATINE PHOSPHOKINASE 40 U/L (39-308); TROPONIN I < 0.02 NG/ML (< 0.10)
[2017-04-03 01:16] LABS: BEDSIDE GLUCOSE 269 MG/DL (70-105)
[2017-04-03] MEDS: SLF 3 ML SYR IV ×3 (06:00→21:25)
[2017-04-03 06:38] LABS: BASO % 0.3 % (0.0-1.0); EOS # 0.1 10^3/uL (0.0-0.50); EOS % 0.6 % (0.0-3.0); HEMATOCRIT 31.3 % (42.0-52.0); HEMOGLOBIN 10.1 g/dl (14.0-18.0); IMMATURE GRANULOCYTE # 0.1 10^3/uL (0-0); IMMATURE GRANULOCYTE % 0.6 % (0-0); LYMPH # 2.3 10^3/uL (1.5-4.5); LYMPH % 18.7 % (24.0-44.0); MEAN CORPUSCULAR HEMOGLOBIN 27.8 pg (27.0-33.0); MEAN CORPUSCULAR HGB CONC 32.3 g/dl (32.0-36.5); MEAN CORPUSCULAR VOLUME 86.2 fl (80.0-96.0); MONO # 1.3 10^3/uL (0.0-0.8); MONO % 10.4 % (0.0-5.0); NEUTROPHILS # 8.5 10^3/uL (1.8-7.7); NEUTROPHILS % 69.4 % (36.0-66.0); PLATELET COUNT, AUTOMATED 283 10^3/uL (150-450); RED BLOOD COUNT 3.63 10^6/uL (4.30-6.10); RED CELL DISTRIBUTION WIDTH 13.8 % (11.5-14.5); WHITE BLOOD COUNT 12.2 10^3/uL (4.0-10.0)
[2017-04-03 06:59] LABS: ANION GAP 8 MEQ/L (8-16); BLOOD UREA NITROGEN 25 MG/DL (7-18); CALCIUM LEVEL 8.5 MG/DL (8.5-10.1); CARBON DIOXIDE LEVEL 28 MEQ/L (21-32); CHLORIDE LEVEL 101 MEQ/L (98-107); CPK CREATINE PHOSPHOKINASE 35 U/L (39-308); CREATININE FOR GFR 1.38 MG/DL (0.70-1.30); GLOMERULAR FILTRATION RATE 56.5 (>56); GLUCOSE, FASTING 180 MG/DL (70-105); MAGNESIUM LEVEL 2.3 MG/DL (1.8-2.4); POTASSIUM SERUM 4.4 MEQ/L (3.5-5.1); SODIUM LEVEL 137 MEQ/L (136-145); TROPONIN I < 0.02 NG/ML (< 0.10)
[2017-04-03 07:00] LABS: MB/CK RELATIVE INDEX 2.85 (< OR =4)
[2017-04-03] MEDS: ENOXAPARIN 40 MG/0.4 ML SYRINGE (J1650) SC (08:30)
[2017-04-03] MEDS: CitaloPRAM (CeleXA) 20 MG TAB PO (08:30)
[2017-04-03] MEDS: predniSONE 1 MG TAB PO (08:30)
[2017-04-03] MEDS: predniSONE 10 MG TAB PO (08:31)
[2017-04-03] MEDS: PANTOPRAZOLE 40MG TAB (PROTONIX) PO (08:31)
[2017-04-03] MEDS: ATORVASTATIN 20 MG TAB PO (08:31)
[2017-04-03] MEDS: MIDODRINE 5 MG TAB PO ×3 (08:31→17:48)
[2017-04-03] MEDS: ASPIRIN 81 MG ENTERIC TAB PO (08:31)
[2017-04-03] MEDS: KETOROLAC 30 MG/ML VIAL (J1885) IV ×2 (09:58→21:27)
[2017-04-03 12:24] LABS: BEDSIDE GLUCOSE 436 MG/DL (70-105)
[2017-04-03 17:16] LABS: BEDSIDE GLUCOSE 329 MG/DL (70-105)
[2017-04-03] MEDS: LATANOPROST 0.005% OPHTH SOLN 2.5 ML OU (21:00)
[2017-04-03 21:53] LABS: BEDSIDE GLUCOSE 307 MG/DL (70-105)
[2017-04-04] MEDS: ACETAMINOPHEN TAB 650MG DOSE (2X325MG) PO ×2 (04:29→09:32)
[2017-04-04] MEDS: SLF 3 ML SYR IV ×3 (05:15→22:03)
[2017-04-04] MEDS: METOCLOPRAMIDE INJ 10MG/2ML VIAL (J2765) IV (05:36)
[2017-04-04] MEDS: diphenhydrAMINE INJ 50MG/ML VIAL (J1200) IV (05:36)
[2017-04-04 05:39] LABS: BASO % 0.3 % (0.0-1.0); EOS # 0.1 10^3/uL (0.0-0.50); HEMATOCRIT 29.2 % (42.0-52.0); HEMOGLOBIN 9.5 g/dl (14.0-18.0); IMMATURE GRANULOCYTE # 0.1 10^3/uL (0-0); IMMATURE GRANULOCYTE % 0.6 % (0-0); LYMPH # 2.1 10^3/uL (1.5-4.5); LYMPH % 18.5 % (24.0-44.0); MEAN CORPUSCULAR HEMOGLOBIN 27.9 pg (27.0-33.0); MEAN CORPUSCULAR HGB CONC 32.5 g/dl (32.0-36.5); MEAN CORPUSCULAR VOLUME 85.6 fl (80.0-96.0); MONO # 1.2 10^3/uL (0.0-0.8); MONO % 10.2 % (0.0-5.0); NEUTROPHILS % 69.4 % (36.0-66.0); PLATELET COUNT, AUTOMATED 271 10^3/uL (150-450); RED BLOOD COUNT 3.41 10^6/uL (4.30-6.10); RED CELL DISTRIBUTION WIDTH 13.5 % (11.5-14.5); WHITE BLOOD COUNT 11.5 10^3/uL (4.0-10.0)
[2017-04-04 06:05] LABS: ANION GAP 6 MEQ/L (8-16); BLOOD UREA NITROGEN 24 MG/DL (7-18); CALCIUM LEVEL 9.1 MG/DL (8.5-10.1); CARBON DIOXIDE LEVEL 30 MEQ/L (21-32); CHLORIDE LEVEL 101 MEQ/L (98-107); CREATININE FOR GFR 1.06 MG/DL (0.70-1.30); GLOMERULAR FILTRATION RATE > 60.0 (>56); GLUCOSE, FASTING 182 MG/DL (70-105); POTASSIUM SERUM 4.1 MEQ/L (3.5-5.1); SODIUM LEVEL 137 MEQ/L (136-145)
[2017-04-04 07:59] LABS: BEDSIDE GLUCOSE 154 MG/DL (70-105)
[2017-04-04] MEDS: RIZATRIPTAN BENZOATE 10 MG TAB PO (08:06)
[2017-04-04] MEDS: MIDODRINE 5 MG TAB PO ×3 (09:25→17:29)
[2017-04-04] MEDS: predniSONE 10 MG TAB PO (09:26)
[2017-04-04] MEDS: ASPIRIN 81 MG ENTERIC TAB PO (09:26)
[2017-04-04] MEDS: predniSONE 1 MG TAB PO (09:26)
[2017-04-04] MEDS: KETOROLAC 30 MG/ML VIAL (J1885) IV ×3 (09:26→22:03)
[2017-04-04] MEDS: ATORVASTATIN 20 MG TAB PO (09:26)
[2017-04-04] MEDS: ENOXAPARIN 40 MG/0.4 ML SYRINGE (J1650) SC (09:27)
[2017-04-04] MEDS: PANTOPRAZOLE 40MG TAB (PROTONIX) PO (09:27)
[2017-04-04] MEDS: CitaloPRAM (CeleXA) 20 MG TAB PO (09:27)
[2017-04-04] MEDS: LATANOPROST 0.005% OPHTH SOLN 2.5 ML OU (22:03)
[2017-04-05] MEDS: ACETAMINOPHEN 500 MG TAB PO (03:32)
[2017-04-05] MEDS: RIZATRIPTAN BENZOATE 10 MG TAB PO (03:33)
[2017-04-05] MEDS: SLF 3 ML SYR IV ×3 (04:04→20:13)
[2017-04-05] MEDS ORDERED: BISACODYL ENEMA 10 MG/30 ML PR (05:00)
[2017-04-05] MEDS: MAGNESIUM CITRATE 300 ML BTL PO (05:05)
[2017-04-05 05:48] LABS: BASO % 0.4 % (0.0-1.0); EOS # 0.1 10^3/uL (0.0-0.50); EOS % 1.2 % (0.0-3.0); HEMOGLOBIN 10.9 g/dl (14.0-18.0); IMMATURE GRANULOCYTE # 0.1 10^3/uL (0-0); IMMATURE GRANULOCYTE % 0.6 % (0-0); LYMPH # 2.3 10^3/uL (1.5-4.5); LYMPH % 21.2 % (24.0-44.0); MEAN CORPUSCULAR HEMOGLOBIN 27.4 pg (27.0-33.0); MEAN CORPUSCULAR HGB CONC 32.1 g/dl (32.0-36.5); MEAN CORPUSCULAR VOLUME 85.4 fl (80.0-96.0); MONO % 8.9 % (0.0-5.0); NEUTROPHILS # 7.4 10^3/uL (1.8-7.7); NEUTROPHILS % 67.7 % (36.0-66.0); PLATELET COUNT, AUTOMATED 340 10^3/uL (150-450); RED BLOOD COUNT 3.98 10^6/uL (4.30-6.10); RED CELL DISTRIBUTION WIDTH 13.4 % (11.5-14.5); WHITE BLOOD COUNT 10.9 10^3/uL (4.0-10.0)
[2017-04-05 06:04] LABS: ANION GAP 9 MEQ/L (8-16); BLOOD UREA NITROGEN 24 MG/DL (7-18); CALCIUM LEVEL 8.8 MG/DL (8.5-10.1); CARBON DIOXIDE LEVEL 27 MEQ/L (21-32); CHLORIDE LEVEL 104 MEQ/L (98-107); CREATININE FOR GFR 1.12 MG/DL (0.70-1.30); GLOMERULAR FILTRATION RATE > 60.0 (>56); GLUCOSE, FASTING 137 MG/DL (70-105); POTASSIUM SERUM 3.9 MEQ/L (3.5-5.1); SODIUM LEVEL 140 MEQ/L (136-145)
[2017-04-05] MEDS: ENOXAPARIN 40 MG/0.4 ML SYRINGE (J1650) SC (08:39)
[2017-04-05] MEDS: MIDODRINE 5 MG TAB PO ×3 (08:40→17:26)
[2017-04-05] MEDS: PANTOPRAZOLE 40MG TAB (PROTONIX) PO (08:40)
[2017-04-05] MEDS: CitaloPRAM (CeleXA) 20 MG TAB PO (08:40)
[2017-04-05] MEDS: predniSONE 1 MG TAB PO (08:40)
[2017-04-05] MEDS: SENOKOT S TAB PO ×2 (08:40→20:13)
[2017-04-05] MEDS: predniSONE 10 MG TAB PO (08:40)
[2017-04-05] MEDS: ASPIRIN 81 MG ENTERIC TAB PO (08:40)
[2017-04-05] MEDS: ATORVASTATIN 20 MG TAB PO (08:40)
[2017-04-05 12:10] LABS: BEDSIDE GLUCOSE 363 MG/DL (70-105)
[2017-04-05 14:47] LABS: ESTIMATED AVERAGE GLUCOSE 243 MG/DL (60-110); HEMOGLOBIN A1c 10.1 %
[2017-04-05 17:25] LABS: BEDSIDE GLUCOSE 367 MG/DL (70-105)
[2017-04-05] MEDS: KETOROLAC 30 MG/ML VIAL (J1885) IV (19:30)
[2017-04-05] MEDS: LATANOPROST 0.005% OPHTH SOLN 2.5 ML OU (20:14)
[2017-04-05 21:39] LABS: BEDSIDE GLUCOSE 367 MG/DL (70-105)
[2017-04-06] MEDS: ACETAMINOPHEN 500 MG TAB PO (04:23)
[2017-04-06] MEDS: SLF 3 ML SYR IV ×2 (04:23→14:00)
[2017-04-06 05:47] LABS: BASO % 0.4 % (0.0-1.0); EOS # 0.1 10^3/uL (0.0-0.50); EOS % 1.3 % (0.0-3.0); HEMATOCRIT 30.6 % (42.0-52.0); HEMOGLOBIN 9.9 g/dl (14.0-18.0); IMMATURE GRANULOCYTE # 0.1 10^3/uL (0-0); IMMATURE GRANULOCYTE % 0.6 % (0-0); LYMPH % 23.2 % (24.0-44.0); MEAN CORPUSCULAR HEMOGLOBIN 27.7 pg (27.0-33.0); MEAN CORPUSCULAR HGB CONC 32.4 g/dl (32.0-36.5); MEAN CORPUSCULAR VOLUME 85.5 fl (80.0-96.0); MONO # 0.8 10^3/uL (0.0-0.8); MONO % 9.6 % (0.0-5.0); NEUTROPHILS # 5.5 10^3/uL (1.8-7.7); NEUTROPHILS % 64.9 % (36.0-66.0); PLATELET COUNT, AUTOMATED 304 10^3/uL (150-450); RED BLOOD COUNT 3.58 10^6/uL (4.30-6.10); RED CELL DISTRIBUTION WIDTH 13.6 % (11.5-14.5); WHITE BLOOD COUNT 8.5 10^3/uL (4.0-10.0)
[2017-04-06 06:11] LABS: ANION GAP 8 MEQ/L (8-16); BLOOD UREA NITROGEN 23 MG/DL (7-18); CALCIUM LEVEL 8.5 MG/DL (8.5-10.1); CARBON DIOXIDE LEVEL 28 MEQ/L (21-32); CHLORIDE LEVEL 104 MEQ/L (98-107); CREATININE FOR GFR 1.04 MG/DL (0.70-1.30); GLOMERULAR FILTRATION RATE > 60.0 (>56); GLUCOSE, FASTING 102 MG/DL (70-105); SODIUM LEVEL 140 MEQ/L (136-145)
[2017-04-06] MEDS: KETOROLAC 30 MG/ML VIAL (J1885) IV (08:45)
[2017-04-06] MEDS: SENOKOT S TAB PO (08:46)
[2017-04-06] MEDS: ATORVASTATIN 20 MG TAB PO (08:46)
[2017-04-06] MEDS: CitaloPRAM (CeleXA) 20 MG TAB PO (08:46)
[2017-04-06] MEDS: ENOXAPARIN 40 MG/0.4 ML SYRINGE (J1650) SC (08:46)
[2017-04-06] MEDS: PANTOPRAZOLE 40MG TAB (PROTONIX) PO (08:46)
[2017-04-06] MEDS: ASPIRIN 81 MG ENTERIC TAB PO (08:46)
[2017-04-06] MEDS: predniSONE 10 MG TAB PO (08:47)
[2017-04-06] MEDS: predniSONE 1 MG TAB PO (08:47)
[2017-04-06] MEDS: MIDODRINE 5 MG TAB PO (08:47)
[2017-04-06] MEDS: FLUDROCORTISONE ACETATE 0.1 MG TAB PO (12:37)
== END 2017-04-06 16:08 | disposition home health service (06) | DRG 74 ==
LOC: M ED 07:38 → M ED INP 10:58 → M PCU 13:40
DX: E11.43 Type 2 diabetes mellitus with diabetic autonomic (poly)neuropathy (principal); N17.9 Acute kidney failure, unspecified; E11.52 Type 2 diabetes mellitus with diabetic peripheral angiopathy with gangrene; I95.1 Orthostatic hypotension; M70.31 Other bursitis of elbow, right elbow; E11.319 Type 2 diabetes mellitus with unspecified diabetic retinopathy without macular edema; E11.21 Type 2 diabetes mellitus with diabetic nephropathy; Z79.4 Long term (current) use of insulin; Z91.19 Patient's noncompliance with other medical treatment and regimen; M19.90 Unspecified osteoarthritis, unspecified site; R29.6 Repeated falls; M31.6 Other giant cell arteritis; I10 Essential (primary) hypertension; E78.5 Hyperlipidemia, unspecified; Z79.899 Other long term (current) drug therapy; Z79.82 Long term (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; Z79.52 Long term (current) use of systemic steroids; K21.9 Gastro-esophageal reflux disease without esophagitis; Z87.891 Personal history of nicotine dependence; H40.9 Unspecified glaucoma

== ENCOUNTER → 2017-04-17 | Outpatient (CLI) | payer MEDICARE, MEDICAID | LOC: M PAIN 14:00 | DX: M79.1 Myalgia (principal); M54.2 Cervicalgia; E10.40 Type 1 diabetes mellitus with diabetic neuropathy, unspecified; I10 Essential (primary) hypertension; Z79.82 Long term (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; Z79.4 Long term (current) use of insulin; Z79.891 Long term (current) use of opiate analgesic; Z79.899 Other long term (current) drug therapy; Z87.891 Personal history of nicotine dependence | CPT/HCPCS: G0463 ==

== ENCOUNTER 2017-04-25 10:13 | Emergency (ER) | payer MEDICARE, MEDICAID ==
[2017-04-25 10:38] LABS: BEDSIDE GLUCOSE 145 MG/DL (70-105)
[2017-04-25 11:16] LABS: BASO % 0.4 % (0.0-1.0); EOS # 0.2 10^3/uL (0.0-0.50); EOS % 1.4 % (0.0-3.0); HEMATOCRIT 31.7 % (42.0-52.0); IMMATURE GRANULOCYTE # 0.1 10^3/uL (0-0); IMMATURE GRANULOCYTE % 0.7 % (0-0); LYMPH # 2.3 10^3/uL (1.5-4.5); LYMPH % 20.7 % (24.0-44.0); MEAN CORPUSCULAR HEMOGLOBIN 27.3 pg (27.0-33.0); MEAN CORPUSCULAR HGB CONC 31.5 g/dl (32.0-36.5); MEAN CORPUSCULAR VOLUME 86.6 fl (80.0-96.0); NEUTROPHILS # 7.6 10^3/uL (1.8-7.7); NEUTROPHILS % 67.8 % (36.0-66.0); PLATELET COUNT, AUTOMATED 314 10^3/uL (150-450); RED BLOOD COUNT 3.66 10^6/uL (4.30-6.10); WHITE BLOOD COUNT 11.2 10^3/uL (4.0-10.0)
[2017-04-25] MEDS: ACETAMINOPHEN TAB 650MG DOSE (2X325MG) PO ×2 (11:30)
[2017-04-25 11:46] LABS: ANION GAP 9 MEQ/L (8-16); BLOOD UREA NITROGEN 16 MG/DL (7-18); CALCIUM LEVEL 8.9 MG/DL (8.5-10.1); CARBON DIOXIDE LEVEL 30 MEQ/L (21-32); CHLORIDE LEVEL 102 MEQ/L (98-107); GLOMERULAR FILTRATION RATE > 60.0 (>56); GLUCOSE, FASTING 173 MG/DL (70-100); MAGNESIUM LEVEL 1.9 MG/DL (1.8-2.4); SODIUM LEVEL 141 MEQ/L (136-145)
[2017-04-25 11:49] LABS: CPK CREATINE PHOSPHOKINASE 58 U/L (39-308); TROPONIN I < 0.02 NG/ML (< 0.10)
[2017-04-25 11:55] LABS: MB/CK RELATIVE INDEX 1.72 (< OR =4)
[2017-04-25 12:06] LABS: LACTIC ACID SEPSIS PROTOCOL 2.1 MMOL/L (0.4-2.0)
[2017-04-25] MEDS: PERCOCET 5MG/325MG TAB PO ×2 (16:18)
== END 2017-04-25 17:01 | disposition home or self-care (01) ==
LOC: M ED 10:13
DX: R55 Syncope and collapse (principal); M47.812 Spondylosis without myelopathy or radiculopathy, cervical region; M25.78 Osteophyte, vertebrae; M51.36 Other intervertebral disc degeneration, lumbar region; I50.9 Heart failure, unspecified; E11.40 Type 2 diabetes mellitus with diabetic neuropathy, unspecified; I10 Essential (primary) hypertension; Z86.718 Personal history of other venous thrombosis and embolism; Z87.01 Personal history of pneumonia (recurrent); K21.9 Gastro-esophageal reflux disease without esophagitis; Z87.442 Personal history of urinary calculi; F41.9 Anxiety disorder, unspecified; F32.9 Major depressive disorder, single episode, unspecified; G43.909 Migraine, unspecified, not intractable, without status migrainosus; M26.69 Other specified disorders of temporomandibular joint; Z87.891 Personal history of nicotine dependence; Z79.82 Long term (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; Z79.4 Long term (current) use of insulin; Z79.899 Other long term (current) drug therapy
CPT/HCPCS: 71045

== ENCOUNTER → 2017-05-01 | Outpatient (CLI) | payer MEDICARE, MEDICAID ==
[~2017-05-01] MED LIST changes: +ACETAMINOPHEN 325 MG TAB As Ordered; -ADVO31MI2 XX; -ADVOKIT XX; -ADVOMIS4 XX; -AMLO5TAB2 PO; -ASPI81TA24 PO; -ASPI81TA85 PO; -ATOR40TA75 PO; -AUGM875T28 PO; -BACL1TAB9; -BUPIVACAINE HCL 0.25% 10 ML VIAL As Ordered ONE; -BUPIVACAINE HCL 0.25% 30 ML VIAL As Ordered ONE; -CAPT62TA PO; -CELE20TA PO; -CITA40TA4 PO; -CLEO300C2 PO; +CLOPIDOGREL 75 MG TAB As Ordered; -CYCL5TAB PO; -DORZ2SOL5 OU; -DORZOL/TIMOL; -ELIQ5TAB PO; -FLON1SPR; -GAVISOL3; -GLUC1CAP10 PO; -GLUC1KIT INJ; +HEPARIN 1,000 UNITS/ML 10ML VIAL (FOR RADIOLOGY& DIALYSIS ONLY) As Ordered; -INSUDET SC; -INSUH10VL SC; -INSUHUMDS SC; +ISOVUE-300 61% 50ML VIAL (Q9967) As Ordered; -KPHOS50TA PO; -LANS15CA PO; -LATA5OPD OU; -LISI10TA4 PO; -MAXA5TAB10 PO; -METH1TAB40 PO; +MIDAZOLAM INJ 2 MG/2 ML VIAL (J2250) As Ordered; -MIDO2.5T PO; -OMEP20CA3; -OMEP20CA3 PO; -OMEP40CA2 PO; -ONDA4TAB6; -PANT40TA2 PO; -PRED10TA2; -PRED20TA PO; -PRED5TA; -PROT1TAB2 PO; -RIZA5TAB PO; -SULF1TAB72; -SULF1TAB72 PO; -TIMOXEOPD; -TYLE500T78 PO; -ZOFR4TAB3 PO; -diazePAM 5 MG TAB As Ordered ONE; +fentaNYL 100 MCG/2 ML INJECTION (J3010) As Ordered; -oxyCODONE 5MG TAB As Ordered ONE
== END | disposition home or self-care (01) ==
LOC: M IRPRO 07:06
DX: E11.52 Type 2 diabetes mellitus with diabetic peripheral angiopathy with gangrene (principal); E11.621 Type 2 diabetes mellitus with foot ulcer; I96 Gangrene, not elsewhere classified; L97.529 Non-pressure chronic ulcer of other part of left foot with unspecified severity; I77.89 Other specified disorders of arteries and arterioles; I12.9 Hypertensive chronic kidney disease with stage 1 through stage 4 chronic kidney disease, or unspecified chronic kidney disease; E11.22 Type 2 diabetes mellitus with diabetic chronic kidney disease; N18.9 Chronic kidney disease, unspecified
CPT/HCPCS: 36247

== ENCOUNTER → 2017-05-07 | Outpatient (REF) | payer MEDICARE, MEDICAID ==
[2017-05-07 17:19] LABS: RHEUMATOID FACTOR QUANT < 10.0 IU/ML (0-15.0)
[2017-05-10 00:07] LABS: CYCLIC CITRULLINATED PEPTIDE 4 units (0-19)
== END ==
LOC: M SFHCLERA 13:40
DX: M43.22 Fusion of spine, cervical region (principal)
CPT/HCPCS: 86200

== ENCOUNTER → 2017-05-14 | Outpatient (CLI) | payer MEDICARE, MEDICAID ==
[2017-05-14 14:35] LABS: BASO # 0.1 10^3/uL (0.0-0.2); BASO % 0.6 % (0.0-1.0); EOS # 0.1 10^3/uL (0.0-0.50); EOS % 1.6 % (0.0-3.0); HEMATOCRIT 31.5 % (42.0-52.0); HEMOGLOBIN 9.8 g/dl (14.0-18.0); IMMATURE GRANULOCYTE % 0.5 % (0-3.0); LYMPH # 1.5 10^3/uL (1.5-4.5); LYMPH % 18.6 % (24.0-44.0); MEAN CORPUSCULAR HEMOGLOBIN 27.4 pg (27.0-33.0); MEAN CORPUSCULAR HGB CONC 31.1 g/dl (32.0-36.5); MONO # 0.6 10^3/uL (0.0-0.8); MONO % 7.4 % (0.0-5.0); NEUTROPHILS # 5.7 10^3/uL (1.8-7.7); NEUTROPHILS % 71.3 % (36.0-66.0); PLATELET COUNT, AUTOMATED 321 10^3/uL (150-450); RED BLOOD COUNT 3.58 10^6/uL (4.30-6.10); WHITE BLOOD COUNT 7.9 10^3/uL (4.0-10.0)
[2017-05-14 14:56] LABS: ERYTHROCYTE SEDIMENTATION RATE 49 mm/hr (0-20)
[2017-05-14 15:03] LABS: ALBUMIN 3.1 GM/DL (3.2-5.2); ALBUMIN/GLOBULIN RATIO 0.89 (1.00-1.93); ALKALINE PHOSPHATASE 121 U/L (45-117); ALT/SGPT 24 U/L (12-78); ANION GAP 8 MEQ/L (8-16); AST/SGOT 19 U/L (7-37); BILIRUBIN,TOTAL 0.4 MG/DL (0.2-1.0); BLOOD UREA NITROGEN 13 MG/DL (7-18); C REACTIVE PROTEIN QUANTITATIV 1.14 MG/DL (0.00-0.30); CALCIUM LEVEL 8.8 MG/DL (8.5-10.1); CARBON DIOXIDE LEVEL 28 MEQ/L (21-32); CHLORIDE LEVEL 102 MEQ/L (98-107); GAMMA GLUTAMYLTRANSPEPTIDASE 129 U/L (15-85); GLOMERULAR FILTRATION RATE > 60.0 (>56); GLUCOSE, FASTING 245 MG/DL (70-100); POTASSIUM SERUM 4.2 MEQ/L (3.5-5.1); SODIUM LEVEL 138 MEQ/L (136-145); TOTAL PROTEIN 6.6 GM/DL (6.4-8.2)
== END ==
LOC: M LAB 11:42
DX: M31.6 Other giant cell arteritis (principal); Z79.899 Other long term (current) drug therapy
CPT/HCPCS: 82977

== ENCOUNTER 2017-05-29 10:20 | Emergency (ER) | payer MEDICARE, MEDICAID | END 2017-05-29 16:22 | disposition home or self-care (01) | LOC: M ED 10:20 | DX: S80.211A Abrasion, right knee, initial encounter (principal); S80.212A Abrasion, left knee, initial encounter; S22.32XA Fracture of one rib, left side, initial encounter for closed fracture; W18.39XA Other fall on same level, initial encounter; Y92.002 Bathroom of unspecified non-institutional (private) residence as the place of occurrence of the external cause; E11.9 Type 2 diabetes mellitus without complications; Z79.4 Long term (current) use of insulin | CPT/HCPCS: 71101 ==

== ENCOUNTER → 2017-06-12 | Outpatient (CLI) | payer MEDICARE, MEDICAID ==
[2017-06-12 15:01] LABS: BASO % 0.4 % (0.0-1.0); EOS # 0.1 10^3/uL (0.0-0.50); EOS % 1.4 % (0.0-3.0); HEMATOCRIT 31.9 % (42.0-52.0); IMMATURE GRANULOCYTE # 0.1 10^3/uL (0-0); IMMATURE GRANULOCYTE % 0.5 % (0-3.0); LYMPH # 1.9 10^3/uL (1.5-4.5); LYMPH % 19.6 % (24.0-44.0); MEAN CORPUSCULAR HEMOGLOBIN 27.9 pg (27.0-33.0); MEAN CORPUSCULAR HGB CONC 31.3 g/dl (32.0-36.5); MEAN CORPUSCULAR VOLUME 88.9 fl (80.0-96.0); MONO # 0.9 10^3/uL (0.0-0.8); NEUTROPHILS # 6.6 10^3/uL (1.8-7.7); NEUTROPHILS % 69.1 % (36.0-66.0); PLATELET COUNT, AUTOMATED 363 10^3/uL (150-450); RED BLOOD COUNT 3.59 10^6/uL (4.30-6.10); RED CELL DISTRIBUTION WIDTH 13.2 % (11.5-14.5); WHITE BLOOD COUNT 9.5 10^3/uL (4.0-10.0)
[2017-06-12 15:09] LABS: ALBUMIN/GLOBULIN RATIO 0.73 (1.00-1.93); ALKALINE PHOSPHATASE 136 U/L (45-117); ALT/SGPT 21 U/L (12-78); ANION GAP 10 MEQ/L (8-16); AST/SGOT 27 U/L (7-37); BILIRUBIN,TOTAL 0.3 MG/DL (0.2-1.0); BLOOD UREA NITROGEN 13 MG/DL (7-18); C REACTIVE PROTEIN QUANTITATIV 3.74 MG/DL (0.00-0.30); CALCIUM LEVEL 9.1 MG/DL (8.5-10.1); CARBON DIOXIDE LEVEL 25 MEQ/L (21-32); CHLORIDE LEVEL 100 MEQ/L (98-107); CREATININE FOR GFR 1.34 MG/DL (0.70-1.30); GLOMERULAR FILTRATION RATE 58.5 (>56); GLUCOSE, FASTING 281 MG/DL (70-100); SODIUM LEVEL 135 MEQ/L (136-145); TOTAL PROTEIN 7.1 GM/DL (6.4-8.2)
[2017-06-12 15:47] LABS: ERYTHROCYTE SEDIMENTATION RATE 74 mm/hr (0-20)
== END ==
LOC: M LRY 11:20
DX: M31.6 Other giant cell arteritis (principal)
CPT/HCPCS: 80053

== ENCOUNTER → 2017-06-12 | Outpatient (REF) | payer MEDICARE, MEDICAID ==
[2017-06-12 15:08] LABS: HEMATOCRIT 31.9 % (42.0-52.0); LYMPH % 19.6 % (24.0-44.0); MEAN CORPUSCULAR HEMOGLOBIN 27.9 pg (27.0-33.0); MEAN CORPUSCULAR HGB CONC 31.3 g/dl (32.0-36.5); MEAN CORPUSCULAR VOLUME 88.9 fl (80.0-96.0); NEUTROPHILS % 69.1 % (36.0-66.0); PLATELET COUNT, AUTOMATED 363 10^3/uL (150-450); RED BLOOD COUNT 3.59 10^6/uL (4.30-6.10); RED CELL DISTRIBUTION WIDTH 13.2 % (11.5-14.5); WHITE BLOOD COUNT 9.5 10^3/uL (4.0-10.0)
[2017-06-12 15:09] LABS: BASO % 0.4 % (0.0-1.0); EOS # 0.1 10^3/uL (0.0-0.50); EOS % 1.4 % (0.0-3.0); IMMATURE GRANULOCYTE % 0.5 % (0-3.0); LYMPH # 1.9 10^3/uL (1.5-4.5); MONO # 0.9 10^3/uL (0.0-0.8); NEUTROPHILS # 6.6 10^3/uL (1.8-7.7)
[2017-06-12 15:32] LABS: C REACTIVE PROTEIN QUANTITATIV 3.74 MG/DL (0.00-0.30)
[2017-06-12 15:47] LABS: ERYTHROCYTE SEDIMENTATION RATE 74 mm/hr (0-20)
== END ==
LOC: M SFHCLERA 12:50
DX: L03.116 Cellulitis of left lower limb (principal)
CPT/HCPCS: 86140

== ENCOUNTER → 2017-06-12 | Outpatient (CLI) | payer MEDICARE, MEDICAID | LOC: M LRY 12:45 | DX: L03.116 Cellulitis of left lower limb (principal); R93.8 Abnormal findings on diagnostic imaging of other specified body structures | CPT/HCPCS: 73630; 80053 ==

== ENCOUNTER 2017-06-14 12:45 | Emergency (ER) | payer MEDICARE, MEDICAID ==
[2017-06-14 14:29] LABS: BASO # 0.1 10^3/uL (0.0-0.2); BASO % 0.5 % (0.0-1.0); EOS # 0.2 10^3/uL (0.0-0.50); EOS % 1.9 % (0.0-3.0); HEMATOCRIT 30.8 % (42.0-52.0); IMMATURE GRANULOCYTE % 0.5 % (0-3.0); LYMPH # 1.9 10^3/uL (1.5-4.5); LYMPH % 20.2 % (24.0-44.0); MEAN CORPUSCULAR HEMOGLOBIN 27.8 pg (27.0-33.0); MEAN CORPUSCULAR HGB CONC 32.5 g/dl (32.0-36.5); MEAN CORPUSCULAR VOLUME 85.6 fl (80.0-96.0); MONO # 0.9 10^3/uL (0.0-0.8); MONO % 9.5 % (0.0-5.0); NEUTROPHILS # 6.3 10^3/uL (1.8-7.7); NEUTROPHILS % 67.4 % (36.0-66.0); PLATELET COUNT, AUTOMATED 375 10^3/uL (150-450); RED CELL DISTRIBUTION WIDTH 13.3 % (11.5-14.5); WHITE BLOOD COUNT 9.3 10^3/uL (4.0-10.0)
[2017-06-14] MEDS: CLINDAMYCIN 600 MG in APPROPRIATE DILUENT 1 EA IV (14:29)
[2017-06-14] MEDS: MORPHINE 4 MG/ML 1ML VIAL (J2270) IV (14:29)
[2017-06-14 14:55] LABS: ANION GAP 7 MEQ/L (8-16); BLOOD UREA NITROGEN 19 MG/DL (7-18); C REACTIVE PROTEIN QUANTITATIV 3.36 MG/DL (0.00-0.30); CARBON DIOXIDE LEVEL 30 MEQ/L (21-32); CHLORIDE LEVEL 102 MEQ/L (98-107); CREATININE FOR GFR 1.79 MG/DL (0.70-1.30); GLOMERULAR FILTRATION RATE 41.9 (>56); GLUCOSE, FASTING 87 MG/DL (70-100); POTASSIUM SERUM 4.5 MEQ/L (3.5-5.1); SODIUM LEVEL 139 MEQ/L (136-145)
[2017-06-14 14:57] LABS: LACTIC ACID SEPSIS PROTOCOL 1.9 MMOL/L (0.4-2.0)
[2017-06-14 15:04] LABS: ERYTHROCYTE SEDIMENTATION RATE 70 mm/hr (0-20)
== END 2017-06-14 16:18 | disposition home or self-care (01) ==
LOC: M ED 12:45
DX: L03.116 Cellulitis of left lower limb (principal); E10.621 Type 1 diabetes mellitus with foot ulcer; E10.52 Type 1 diabetes mellitus with diabetic peripheral angiopathy with gangrene; E10.40 Type 1 diabetes mellitus with diabetic neuropathy, unspecified; I11.0 Hypertensive heart disease with heart failure; I50.9 Heart failure, unspecified; Z86.718 Personal history of other venous thrombosis and embolism; F32.9 Major depressive disorder, single episode, unspecified; F41.9 Anxiety disorder, unspecified; M31.6 Other giant cell arteritis; Z87.891 Personal history of nicotine dependence; Z79.899 Other long term (current) drug therapy; Z79.52 Long term (current) use of systemic steroids; Z79.82 Long term (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
CPT/HCPCS: J2270

== ENCOUNTER → 2017-06-14 | Outpatient (CLI) | payer MEDICARE, MEDICAID | LOC: M LRY 11:41 | DX: E10.65 Type 1 diabetes mellitus with hyperglycemia (principal) | CPT/HCPCS: 36415 ==

== ENCOUNTER 2017-06-15 11:24 | Emergency (ER) | payer MEDICARE, MEDICAID ==
[2017-06-15 11:28] LABS: BASO # 0.1 10^3/uL (0.0-0.2); BASO % 0.6 % (0.0-1.0); EOS # 0.1 10^3/uL (0.0-0.50); EOS % 1.4 % (0.0-3.0); HEMATOCRIT 32.2 % (42.0-52.0); HEMOGLOBIN 10.4 g/dl (14.0-18.0); IMMATURE GRANULOCYTE % 0.5 % (0-3.0); LYMPH # 1.6 10^3/uL (1.5-4.5); MEAN CORPUSCULAR HEMOGLOBIN 27.8 pg (27.0-33.0); MEAN CORPUSCULAR HGB CONC 32.3 g/dl (32.0-36.5); MEAN CORPUSCULAR VOLUME 86.1 fl (80.0-96.0); MONO # 0.9 10^3/uL (0.0-0.8); MONO % 10.6 % (0.0-5.0); NEUTROPHILS # 6.1 10^3/uL (1.8-7.7); NEUTROPHILS % 68.9 % (36.0-66.0); PLATELET COUNT, AUTOMATED 348 10^3/uL (150-450); RED BLOOD COUNT 3.74 10^6/uL (4.30-6.10); RED CELL DISTRIBUTION WIDTH 13.3 % (11.5-14.5); WHITE BLOOD COUNT 8.9 10^3/uL (4.0-10.0)
== END 2017-06-15 13:32 | disposition home or self-care (01) ==
LOC: M ED 11:24
DX: I96 Gangrene, not elsewhere classified (principal); E10.9 Type 1 diabetes mellitus without complications; I10 Essential (primary) hypertension; Z79.899 Other long term (current) drug therapy; Z79.82 Long term (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; Z79.4 Long term (current) use of insulin; Z87.891 Personal history of nicotine dependence
CPT/HCPCS: 85025

== ENCOUNTER → 2017-06-18 | Outpatient (CLI) | payer MEDICARE, MEDICAID ==
[2017-06-18 15:00] LABS: BASO % 0.5 % (0.0-1.0); EOS # 0.1 10^3/uL (0.0-0.50); EOS % 1.4 % (0.0-3.0); HEMATOCRIT 33.9 % (42.0-52.0); HEMOGLOBIN 10.7 g/dl (14.0-18.0); IMMATURE GRANULOCYTE % 0.4 % (0-3.0); LYMPH # 1.9 10^3/uL (1.5-4.5); LYMPH % 24.8 % (24.0-44.0); MEAN CORPUSCULAR HEMOGLOBIN 27.4 pg (27.0-33.0); MEAN CORPUSCULAR HGB CONC 31.6 g/dl (32.0-36.5); MEAN CORPUSCULAR VOLUME 86.9 fl (80.0-96.0); MONO # 0.7 10^3/uL (0.0-0.8); NEUTROPHILS % 63.9 % (36.0-66.0); PLATELET COUNT, AUTOMATED 446 10^3/uL (150-450); RED CELL DISTRIBUTION WIDTH 13.5 % (11.5-14.5); WHITE BLOOD COUNT 7.8 10^3/uL (4.0-10.0)
[2017-06-18 15:25] LABS: ANION GAP 7 MEQ/L (8-16); BLOOD UREA NITROGEN 15 MG/DL (7-18); CALCIUM LEVEL 8.9 MG/DL (8.5-10.1); CARBON DIOXIDE LEVEL 30 MEQ/L (21-32); CHLORIDE LEVEL 102 MEQ/L (98-107); CREATININE FOR GFR 1.34 MG/DL (0.70-1.30); GLOMERULAR FILTRATION RATE 58.5 (>56); GLUCOSE, FASTING 187 MG/DL (70-100); SODIUM LEVEL 139 MEQ/L (136-145)
[2017-06-18 15:27] LABS: POTASSIUM SERUM 5.4 MEQ/L (3.5-5.1)
== END ==
LOC: M LAB 14:07
DX: I70.213 Atherosclerosis of native arteries of extremities with intermittent claudication, bilateral legs (principal)
CPT/HCPCS: 80048

== ENCOUNTER 2017-06-22 06:21 | Inpatient (IN) | payer MEDICARE, MEDICAID ==
[2017-06-22] MEDS ORDERED: MIDAZOLAM INJ 2 MG/2 ML VIAL (J2250) As Ordered ×2 (06:37→08:46)
[2017-06-22] MEDS ORDERED: HEPARIN 1,000 UNITS/ML 10ML VIAL (FOR RADIOLOGY& DIALYSIS ONLY) As Ordered (06:37)
[2017-06-22] MEDS ORDERED: fentaNYL 100 MCG/2 ML INJECTION (J3010) As Ordered ×2 (06:37→08:46)
[2017-06-22] MEDS ORDERED: ISOVUE-300 61% 50ML VIAL (Q9967) As Ordered (06:38)
[2017-06-22] MEDS ORDERED: ALTEPLASE 2 MG/2 ML VIAL (J2997 PER 1MG) As Ordered (09:22)
[2017-06-22] MEDS: HEPARIN DRIP 25,000 UNITS in APPROPRIATE DILUENT 1 EA IV (12:00)
[2017-06-22] MEDS: ALTEPLASE RECOMBINANT 25 MG in NS 225 ML IV (12:00)
[2017-06-22] MEDS ORDERED: BISACODYL 10 MG SUPP PR (14:00)
[2017-06-22] MEDS ORDERED: MOM 30ML SUSPENSION UDC PO (14:00)
[2017-06-22] MEDS: DOCUSATE SODIUM 100 MG CAP PO ×2 (14:04→20:36)
[2017-06-22] MEDS: SENOKOT S TAB PO ×2 (14:04→20:35)
[2017-06-22] MEDS: NS 1,000 ML IV (14:17)
[2017-06-22 17:16] LABS: HEMATOCRIT 26.3 % (42.0-52.0); HEMOGLOBIN 8.6 g/dl (14.0-18.0)
[2017-06-22 17:37] LABS: PROTHROMBIN TIME 13.3 SECONDS (12.4-14.5)
[2017-06-22 17:38] LABS: FIBRINOGEN 483 MG/DL (221-452)
[2017-06-22] MEDS ORDERED: SENOKOT S TAB PO (21:00)
[2017-06-22] MEDS ORDERED: DOCUSATE SODIUM 100 MG CAP PO (21:00)
[2017-06-22 23:09] LABS: HEMATOCRIT 26.5 % (42.0-52.0); HEMOGLOBIN 8.5 g/dl (14.0-18.0)
[2017-06-22 23:23] LABS: FIBRINOGEN 460 MG/DL (221-452); INR 0.99; PROTHROMBIN TIME 13.2 SECONDS (12.4-14.5)
[2017-06-23] MEDS: ONDANSETRON 4MG/2ML VIAL (J2405) IV (04:18)
[2017-06-23] MEDS: NORCO, ANEXSIA 5/325MG TABLET (HYDROcodone/ACETAMINOPHEN) PO ×4 (04:20→20:12)
[2017-06-23 04:30] LABS: BEDSIDE GLUCOSE 227 MG/DL (70-105)
[2017-06-23 04:33] LABS: HEMATOCRIT 27.8 % (42.0-52.0); MEAN CORPUSCULAR HGB CONC 32.4 g/dl (32.0-36.5); MEAN CORPUSCULAR VOLUME 83.5 fl (80.0-96.0); PLATELET COUNT, AUTOMATED 335 10^3/uL (150-450); RED BLOOD COUNT 3.33 10^6/uL (4.30-6.10); RED CELL DISTRIBUTION WIDTH 13.3 % (11.5-14.5); WHITE BLOOD COUNT 9.7 10^3/uL (4.0-10.0)
[2017-06-23 04:44] LABS: FIBRINOGEN 469 MG/DL (221-452); INR 1.04; PROTHROMBIN TIME 13.7 SECONDS (12.4-14.5)
[2017-06-23 04:57] LABS: ANION GAP 8 MEQ/L (8-16); BLOOD UREA NITROGEN 16 MG/DL (7-18); CALCIUM LEVEL 8.6 MG/DL (8.5-10.1); CARBON DIOXIDE LEVEL 27 MEQ/L (21-32); CHLORIDE LEVEL 99 MEQ/L (98-107); CREATININE FOR GFR 1.03 MG/DL (0.70-1.30); GLOMERULAR FILTRATION RATE > 60.0 (>56); GLUCOSE, FASTING 214 MG/DL (70-100); POTASSIUM SERUM 3.9 MEQ/L (3.5-5.1); SODIUM LEVEL 134 MEQ/L (136-145)
[2017-06-23] MEDS: HEPARIN DRIP 25,000 UNITS in APPROPRIATE DILUENT 1 EA IV (08:05)
[2017-06-23] MEDS: ALTEPLASE RECOMBINANT 25 MG in NS 225 ML IV (09:09)
[2017-06-23] MEDS: SENOKOT S TAB PO ×2 (10:12→20:12)
[2017-06-23] MEDS: DOCUSATE SODIUM 100 MG CAP PO ×2 (10:13→20:12)
[2017-06-23 10:56] LABS: HEMATOCRIT 27.2 % (42.0-52.0)
[2017-06-23 11:07] LABS: FIBRINOGEN 459 MG/DL (221-452); INR 0.99; PROTHROMBIN TIME 13.2 SECONDS (12.4-14.5)
[2017-06-23] MEDS: NS 1,000 ML IV (12:04)
[2017-06-23 17:30] LABS: HEMATOCRIT 28.6 % (42.0-52.0); HEMOGLOBIN 9.3 g/dl (14.0-18.0)
[2017-06-23 17:51] LABS: FIBRINOGEN 444 MG/DL (221-452); INR 1.04; PROTHROMBIN TIME 13.8 SECONDS (12.4-14.5)
[2017-06-23 23:04] LABS: HEMATOCRIT 29.6 % (42.0-52.0); HEMOGLOBIN 9.5 g/dl (14.0-18.0)
[2017-06-23 23:52] LABS: FIBRINOGEN 497 MG/DL (221-452); INR 1.03; PROTHROMBIN TIME 13.6 SECONDS (12.4-14.5)
[2017-06-24] MEDS: NORCO, ANEXSIA 5/325MG TABLET (HYDROcodone/ACETAMINOPHEN) PO ×5 (01:13→20:17)
[2017-06-24 04:58] LABS: HEMATOCRIT 28.5 % (42.0-52.0); HEMOGLOBIN 9.3 g/dl (14.0-18.0); MEAN CORPUSCULAR HGB CONC 32.6 g/dl (32.0-36.5); MEAN CORPUSCULAR VOLUME 82.6 fl (80.0-96.0); PLATELET COUNT, AUTOMATED 263 10^3/uL (150-450); RED BLOOD COUNT 3.45 10^6/uL (4.30-6.10); RED CELL DISTRIBUTION WIDTH 13.4 % (11.5-14.5); WHITE BLOOD COUNT 11.8 10^3/uL (4.0-10.0)
[2017-06-24 05:06] LABS: INR 1.07
[2017-06-24 05:07] LABS: FIBRINOGEN 445 MG/DL (221-452); PARTIAL THROMBOPLASTIN TIME 38.8 SECONDS (26.8-37.9)
[2017-06-24] MEDS ORDERED: MORPHINE 4 MG/ML 1ML VIAL/SYRINGE (J2270) As Ordered (05:16)
[2017-06-24 05:17] LABS: ANION GAP 9 MEQ/L (8-16); BLOOD UREA NITROGEN 9 MG/DL (7-18); CALCIUM LEVEL 8.9 MG/DL (8.5-10.1); CARBON DIOXIDE LEVEL 26 MEQ/L (21-32); CHLORIDE LEVEL 103 MEQ/L (98-107); CREATININE FOR GFR 0.94 MG/DL (0.70-1.30); GLOMERULAR FILTRATION RATE > 60.0 (>56); GLUCOSE, FASTING 79 MG/DL (70-100); POTASSIUM SERUM 3.6 MEQ/L (3.5-5.1); SODIUM LEVEL 138 MEQ/L (136-145)
[2017-06-24] MEDS: MORPHINE 4 MG/ML 1ML VIAL/SYRINGE (J2270) IV ×8 (05:30→22:49)
[2017-06-24 07:39] LABS: BEDSIDE GLUCOSE 92 MG/DL (70-105)
[2017-06-24] MEDS: SENOKOT S TAB PO ×2 (09:10→20:16)
[2017-06-24] MEDS: DOCUSATE SODIUM 100 MG CAP PO ×2 (09:10→20:16)
[2017-06-24] MEDS: NS 1,000 ML IV (09:11)
[2017-06-24] MEDS: ALTEPLASE RECOMBINANT 25 MG in NS 225 ML IV (10:30)
[2017-06-24] MEDS: HEPARIN DRIP 25,000 UNITS in APPROPRIATE DILUENT 1 EA IV (10:30)
[2017-06-24 11:02] LABS: HEMATOCRIT 27.4 % (42.0-52.0); HEMOGLOBIN 8.9 g/dl (14.0-18.0)
[2017-06-24 11:14] LABS: FIBRINOGEN 400 MG/DL (221-452); INR 1.11; PROTHROMBIN TIME 14.5 SECONDS (12.4-14.5)
[2017-06-24 11:15] LABS: PARTIAL THROMBOPLASTIN TIME 48.7 SECONDS (26.8-37.9)
[2017-06-24 16:45] LABS: HEMOGLOBIN 8.2 g/dl (14.0-18.0)
[2017-06-24 16:55] LABS: INR 1.11; PROTHROMBIN TIME 14.4 SECONDS (12.4-14.5)
[2017-06-24 16:56] LABS: FIBRINOGEN 276 MG/DL (221-452)
[2017-06-24 17:41] LABS: PARTIAL THROMBOPLASTIN TIME > 240.0 SECONDS (26.8-37.9)
[2017-06-24 18:10] LABS: FIBRINOGEN 340 MG/DL (221-452)
[2017-06-24 18:11] LABS: PARTIAL THROMBOPLASTIN TIME 97.7 SECONDS (26.8-37.9)
[2017-06-24 23:26] LABS: FIBRINOGEN 371 MG/DL (221-452); HEMATOCRIT 24.4 % (42.0-52.0); HEMOGLOBIN 8.1 g/dl (14.0-18.0); INR 1.03; PROTHROMBIN TIME 13.6 SECONDS (12.4-14.5)
[2017-06-24 23:28] LABS: PARTIAL THROMBOPLASTIN TIME 70.2 SECONDS (26.8-37.9)
[2017-06-25] MEDS: NS 500 ML IV
[2017-06-25] MEDS: NORCO, ANEXSIA 5/325MG TABLET (HYDROcodone/ACETAMINOPHEN) PO ×5 (00:24→20:40)
[2017-06-25] MEDS: MORPHINE 4 MG/ML 1ML VIAL/SYRINGE (J2270) IV ×10 (00:44→23:43)
[2017-06-25 05:07] LABS: HEMATOCRIT 24.5 % (42.0-52.0); MEAN CORPUSCULAR HEMOGLOBIN 28.1 pg (27.0-33.0); MEAN CORPUSCULAR HGB CONC 32.7 g/dl (32.0-36.5); PLATELET COUNT, AUTOMATED 214 10^3/uL (150-450); RED BLOOD COUNT 2.85 10^6/uL (4.30-6.10); RED CELL DISTRIBUTION WIDTH 13.7 % (11.5-14.5)
[2017-06-25 05:22] LABS: FIBRINOGEN 324 MG/DL (221-452); INR 1.13; PROTHROMBIN TIME 14.6 SECONDS (12.4-14.5)
[2017-06-25 05:23] LABS: PARTIAL THROMBOPLASTIN TIME 103.5 SECONDS (26.8-37.9)
[2017-06-25 05:34] LABS: ANION GAP 9 MEQ/L (8-16); BLOOD UREA NITROGEN 11 MG/DL (7-18); CALCIUM LEVEL 8.5 MG/DL (8.5-10.1); CARBON DIOXIDE LEVEL 26 MEQ/L (21-32); CHLORIDE LEVEL 106 MEQ/L (98-107); CREATININE FOR GFR 0.79 MG/DL (0.70-1.30); GLOMERULAR FILTRATION RATE > 60.0 (>56); GLUCOSE, FASTING 84 MG/DL (70-100); SODIUM LEVEL 141 MEQ/L (136-145)
[2017-06-25] MEDS: HEPARIN DRIP 25,000 UNITS in APPROPRIATE DILUENT 1 EA IV ×2 (07:47→08:28)
[2017-06-25] MEDS: MOM 30ML SUSPENSION UDC PO (08:21)
[2017-06-25] MEDS: DOCUSATE SODIUM 100 MG CAP PO ×2 (08:24→20:40)
[2017-06-25] MEDS: SENOKOT S TAB PO ×2 (08:24→20:40)
[2017-06-25] MEDS: NS 1,000 ML IV (08:28)
[2017-06-25 11:34] LABS: HEMATOCRIT 24.2 % (42.0-52.0); HEMOGLOBIN 7.8 g/dl (14.0-18.0)
[2017-06-25 12:00] LABS: FIBRINOGEN 320 MG/DL (221-452); INR 1.07; PROTHROMBIN TIME 14.1 SECONDS (12.4-14.5)
[2017-06-25] MEDS: ALTEPLASE RECOMBINANT 25 MG in NS 225 ML IV (13:14)
[2017-06-25 19:07] LABS: HEMATOCRIT 22.7 % (42.0-52.0); HEMOGLOBIN 7.4 g/dl (14.0-18.0)
[2017-06-25 19:18] LABS: INR 1.12; PROTHROMBIN TIME 14.6 SECONDS (12.4-14.5)
[2017-06-25 19:19] LABS: FIBRINOGEN 326 MG/DL (221-452)
[2017-06-25 21:24] LABS: PARTIAL THROMBOPLASTIN TIME 96.5 SECONDS (26.8-37.9)
[2017-06-25 23:45] LABS: HEMATOCRIT 23.2 % (42.0-52.0); HEMOGLOBIN 7.5 g/dl (14.0-18.0)
[2017-06-26 00:02] LABS: FIBRINOGEN 414 MG/DL (221-452); INR 1.04; PROTHROMBIN TIME 13.7 SECONDS (12.4-14.5)
[2017-06-26 00:13] LABS: PARTIAL THROMBOPLASTIN TIME 129.7 SECONDS (26.8-37.9)
[2017-06-26] MEDS ORDERED: HEPARIN 25,000 UNITS/250 ML D5W BAG (100 UNITS/ML) As Ordered (03:31)
[2017-06-26] MEDS: NS 1,000 ML IV (03:42)
[2017-06-26] MEDS: MORPHINE 4 MG/ML 1ML VIAL/SYRINGE (J2270) IV ×8 (03:42→22:58)
[2017-06-26] MEDS: HEPARIN DRIP 25,000 UNITS in APPROPRIATE DILUENT 1 EA IV ×2 (03:45→14:13)
[2017-06-26] MEDS: NORCO, ANEXSIA 5/325MG TABLET (HYDROcodone/ACETAMINOPHEN) PO ×5 (05:15→21:54)
[2017-06-26 05:36] LABS: HEMATOCRIT 23.6 % (42.0-52.0); HEMOGLOBIN 7.7 g/dl (14.0-18.0); MEAN CORPUSCULAR HEMOGLOBIN 27.2 pg (27.0-33.0); MEAN CORPUSCULAR HGB CONC 32.6 g/dl (32.0-36.5); MEAN CORPUSCULAR VOLUME 83.4 fl (80.0-96.0); PLATELET COUNT, AUTOMATED 208 10^3/uL (150-450); RED BLOOD COUNT 2.83 10^6/uL (4.30-6.10); RED CELL DISTRIBUTION WIDTH 13.6 % (11.5-14.5); WHITE BLOOD COUNT 7.7 10^3/uL (4.0-10.0)
[2017-06-26 05:46] LABS: INR 1.02; PROTHROMBIN TIME 13.5 SECONDS (12.4-14.5)
[2017-06-26 05:47] LABS: FIBRINOGEN 367 MG/DL (221-452)
[2017-06-26 05:48] LABS: PARTIAL THROMBOPLASTIN TIME 90.1 SECONDS (26.8-37.9)
[2017-06-26 06:45] LABS: ALBUMIN 2.6 GM/DL (3.2-5.2); ALBUMIN/GLOBULIN RATIO 0.67 (1.00-1.93); ALKALINE PHOSPHATASE 237 U/L (45-117); ALT/SGPT 120 U/L (12-78); ANION GAP 8 MEQ/L (8-16); AST/SGOT 219 U/L (7-37); BILIRUBIN,TOTAL 0.4 MG/DL (0.2-1.0); BLOOD UREA NITROGEN 10 MG/DL (7-18); CALCIUM LEVEL 8.6 MG/DL (8.5-10.1); CARBON DIOXIDE LEVEL 27 MEQ/L (21-32); CHLORIDE LEVEL 102 MEQ/L (98-107); CREATININE FOR GFR 0.77 MG/DL (0.70-1.30); GLOMERULAR FILTRATION RATE > 60.0 (>56); GLUCOSE, FASTING 75 MG/DL (70-100); POTASSIUM SERUM 3.9 MEQ/L (3.5-5.1); SODIUM LEVEL 137 MEQ/L (136-145); TOTAL PROTEIN 6.5 GM/DL (6.4-8.2)
[2017-06-26] MEDS: DOCUSATE SODIUM 100 MG CAP PO ×2 (08:56→20:27)
[2017-06-26] MEDS: SENOKOT S TAB PO ×2 (08:56→20:27)
[2017-06-26 11:16] LABS: HEMATOCRIT 22.6 % (42.0-52.0); HEMOGLOBIN 7.5 g/dl (14.0-18.0)
[2017-06-26 11:31] LABS: PROTHROMBIN TIME 13.3 SECONDS (12.4-14.5)
[2017-06-26 11:32] LABS: FIBRINOGEN 356 MG/DL (221-452)
[2017-06-26 11:34] LABS: PARTIAL THROMBOPLASTIN TIME 108.2 SECONDS (26.8-37.9)
[2017-06-26] MEDS: ALTEPLASE RECOMBINANT 25 MG in NS 225 ML IV (14:10)
[2017-06-26 16:45] LABS: HEMATOCRIT 21.9 % (42.0-52.0); HEMOGLOBIN 7.1 g/dl (14.0-18.0)
[2017-06-26 17:16] LABS: INR 1.06
[2017-06-26 17:17] LABS: FIBRINOGEN 347 MG/DL (221-452)
[2017-06-26 17:18] LABS: PARTIAL THROMBOPLASTIN TIME 101.1 SECONDS (26.8-37.9)
[2017-06-26 23:29] LABS: HEMATOCRIT 22.3 % (42.0-52.0); HEMOGLOBIN 7.2 g/dl (14.0-18.0)
[2017-06-26 23:56] LABS: PROTHROMBIN TIME 13.3 SECONDS (12.4-14.5)
[2017-06-26 23:57] LABS: FIBRINOGEN 374 MG/DL (221-452); PARTIAL THROMBOPLASTIN TIME 60.8 SECONDS (26.8-37.9)
[2017-06-27] MEDS: NORCO, ANEXSIA 5/325MG TABLET (HYDROcodone/ACETAMINOPHEN) PO ×4 (02:46→21:01)
[2017-06-27] MEDS: ALTEPLASE RECOMBINANT 25 MG in NS 225 ML IV ×2 (02:47→17:06)
[2017-06-27] MEDS: NS 1,000 ML IV (05:22)
[2017-06-27] MEDS: MORPHINE 4 MG/ML 1ML VIAL/SYRINGE (J2270) IV ×6 (05:30→21:00)
[2017-06-27 05:37] LABS: HEMATOCRIT 22.6 % (42.0-52.0); HEMOGLOBIN 7.4 g/dl (14.0-18.0); MEAN CORPUSCULAR HEMOGLOBIN 27.5 pg (27.0-33.0); MEAN CORPUSCULAR HGB CONC 32.7 g/dl (32.0-36.5); PLATELET COUNT, AUTOMATED 211 10^3/uL (150-450); RED BLOOD COUNT 2.69 10^6/uL (4.30-6.10); RED CELL DISTRIBUTION WIDTH 13.9 % (11.5-14.5); WHITE BLOOD COUNT 11.4 10^3/uL (4.0-10.0)
[2017-06-27 05:43] LABS: INR 0.99; PROTHROMBIN TIME 13.2 SECONDS (12.4-14.5)
[2017-06-27 05:44] LABS: FIBRINOGEN 386 MG/DL (221-452); PARTIAL THROMBOPLASTIN TIME 55.9 SECONDS (26.8-37.9)
[2017-06-27 06:08] LABS: ALBUMIN 2.5 GM/DL (3.2-5.2); ALBUMIN/GLOBULIN RATIO 0.64 (1.00-1.93); ALKALINE PHOSPHATASE 305 U/L (45-117); ALT/SGPT 137 U/L (12-78); ANION GAP 6 MEQ/L (8-16); AST/SGOT 290 U/L (7-37); BILIRUBIN,TOTAL 0.5 MG/DL (0.2-1.0); BLOOD UREA NITROGEN 14 MG/DL (7-18); CALCIUM LEVEL 8.5 MG/DL (8.5-10.1); CARBON DIOXIDE LEVEL 27 MEQ/L (21-32); CHLORIDE LEVEL 104 MEQ/L (98-107); CREATININE FOR GFR 0.91 MG/DL (0.70-1.30); GLOMERULAR FILTRATION RATE > 60.0 (>56); GLUCOSE, FASTING 114 MG/DL (70-100); POTASSIUM SERUM 4.4 MEQ/L (3.5-5.1); SODIUM LEVEL 137 MEQ/L (136-145); TOTAL PROTEIN 6.4 GM/DL (6.4-8.2)
[2017-06-27] MEDS: SENOKOT S TAB PO ×2 (08:42→20:57)
[2017-06-27] MEDS: DOCUSATE SODIUM 100 MG CAP PO ×2 (08:42→20:57)
[2017-06-27 09:52] LABS: IMMEDIATE SPIN CROSSMATCH 1 1
[2017-06-27 11:22] LABS: HEMOGLOBIN 7.6 g/dl (14.0-18.0)
[2017-06-27 11:32] LABS: INR 1.08; PROTHROMBIN TIME 14.2 SECONDS (12.4-14.5)
[2017-06-27 11:33] LABS: FIBRINOGEN 390 MG/DL (221-452); PARTIAL THROMBOPLASTIN TIME 58.3 SECONDS (26.8-37.9)
[2017-06-27 12:55] LABS: BEDSIDE GLUCOSE 217 MG/DL (70-105)
[2017-06-27] MEDS: HEPARIN DRIP 25,000 UNITS in APPROPRIATE DILUENT 1 EA IV (14:33)
[2017-06-27] MEDS ORDERED: DEXTROSE 50% 50 ML SYRINGE IV (16:30)
[2017-06-27] MEDS ORDERED: GLUCAGON FOR INJ 1 MG VIAL (J1610) SC (16:30)
[2017-06-27] MEDS ORDERED: GLUCOSE 4 GM CHEW TABLET PO (16:30)
[2017-06-27 17:03] LABS: HEMATOCRIT 24.4 % (42.0-52.0); HEMOGLOBIN 8.1 g/dl (14.0-18.0)
[2017-06-27 17:15] LABS: INR 1.04; PROTHROMBIN TIME 13.7 SECONDS (12.4-14.5)
[2017-06-27] MEDS ORDERED: RIZATRIPTAN BENZOATE 10 MG TAB PO (17:15)
[2017-06-27 17:16] LABS: PARTIAL THROMBOPLASTIN TIME 63.3 SECONDS (26.8-37.9)
[2017-06-27 17:16] LABS: FIBRINOGEN 400 MG/DL (221-452)
[2017-06-27] MEDS ORDERED: PILL CRUSHER/CUTTER 1 EACH XX (17:30)
[2017-06-27] MEDS: HumaLOG INSULIN (NovoLOG) PER UNIT SC ×2 (18:00→20:56)
[2017-06-27 18:04] LABS: BEDSIDE GLUCOSE 157 MG/DL (70-105)
[2017-06-27 18:15] LABS: AMPHETAMINES LEVEL URINE NEGATIVE (NEGATIVE); BARBITURATES URINE NEGATIVE (NEGATIVE); BENZODIAZEPINES URINE NEGATIVE (NEGATIVE); CANNABINOIDS URINE POSITIVE (NEGATIVE); COCAINE METABOLITE URINE NEGATIVE (NEGATIVE); METHADONE URINE NEGATIVE (NEGATIVE); OPIATES URINE POSITIVE (NEGATIVE); PHENCYCLIDINE URINE NEGATIVE (NEGATIVE)
[2017-06-27 20:08] LABS: BEDSIDE GLUCOSE 121 MG/DL (70-105)
[2017-06-27] MEDS: COSOPT OCUMETER PLUS 10ML (DORZOLAMIDE/TIMOLOL) OU (20:57)
[2017-06-27] MEDS: LATANOPROST 0.005% OPHTH SOLN 2.5 ML OU (20:57)
[2017-06-27 23:16] LABS: HEMATOCRIT 25.5 % (42.0-52.0); HEMOGLOBIN 8.4 g/dl (14.0-18.0)
[2017-06-27 23:37] LABS: PROTHROMBIN TIME 13.3 SECONDS (12.4-14.5)
[2017-06-27 23:40] LABS: FIBRINOGEN 363 MG/DL (221-452)
[2017-06-28 01:03] LABS: INR 0.97
[2017-06-28 01:04] LABS: FIBRINOGEN 379 MG/DL (221-452)
[2017-06-28 01:05] LABS: PARTIAL THROMBOPLASTIN TIME 75.3 SECONDS (26.8-37.9)
[2017-06-28] MEDS: HEPARIN DRIP 25,000 UNITS in APPROPRIATE DILUENT 1 EA IV ×3 (01:27→18:46)
[2017-06-28] MEDS: MORPHINE 4 MG/ML 1ML VIAL/SYRINGE (J2270) IV ×4 (02:42→20:39)
[2017-06-28] MEDS: NORCO, ANEXSIA 5/325MG TABLET (HYDROcodone/ACETAMINOPHEN) PO ×3 (02:43→18:33)
[2017-06-28] MEDS: NS 1,000 ML IV (03:14)
[2017-06-28] MEDS: ALTEPLASE RECOMBINANT 25 MG in NS 225 ML IV ×2 (05:43→20:36)
[2017-06-28 06:03] LABS: HEMATOCRIT 24.7 % (42.0-52.0); HEMOGLOBIN 8.1 g/dl (14.0-18.0); MEAN CORPUSCULAR HGB CONC 32.8 g/dl (32.0-36.5); MEAN CORPUSCULAR VOLUME 82.3 fl (80.0-96.0); PLATELET COUNT, AUTOMATED 190 10^3/uL (150-450); RED CELL DISTRIBUTION WIDTH 14.7 % (11.5-14.5); WHITE BLOOD COUNT 11.7 10^3/uL (4.0-10.0)
[2017-06-28 06:15] LABS: FIBRINOGEN 414 MG/DL (221-452); INR 1.03; PROTHROMBIN TIME 13.6 SECONDS (12.4-14.5)
[2017-06-28 06:42] LABS: ALBUMIN 2.3 GM/DL (3.2-5.2); ALBUMIN/GLOBULIN RATIO 0.61 (1.00-1.93); ALKALINE PHOSPHATASE 289 U/L (45-117); ALT/SGPT 112 U/L (12-78); ANION GAP 11 MEQ/L (8-16); AST/SGOT 180 U/L (7-37); BILIRUBIN,TOTAL 0.9 MG/DL (0.2-1.0); BLOOD UREA NITROGEN 15 MG/DL (7-18); CALCIUM LEVEL 8.6 MG/DL (8.5-10.1); CARBON DIOXIDE LEVEL 23 MEQ/L (21-32); CHLORIDE LEVEL 99 MEQ/L (98-107); CREATININE FOR GFR 0.86 MG/DL (0.70-1.30); GLOMERULAR FILTRATION RATE > 60.0 (>56); GLUCOSE, FASTING 340 MG/DL (70-100); POTASSIUM SERUM 4.5 MEQ/L (3.5-5.1); SODIUM LEVEL 133 MEQ/L (136-145); TOTAL PROTEIN 6.1 GM/DL (6.4-8.2)
[2017-06-28 07:45] LABS: IMMEDIATE SPIN CROSSMATCH 1 1
[2017-06-28] MEDS: predniSONE 5 MG TAB PO (08:14)
[2017-06-28] MEDS: DOCUSATE SODIUM 100 MG CAP PO ×2 (08:14→20:36)
[2017-06-28] MEDS: SENOKOT S TAB PO ×2 (08:14→20:36)
[2017-06-28] MEDS: MIDODRINE 2.5 MG TAB PO ×2 (08:14→16:00)
[2017-06-28] MEDS: COSOPT OCUMETER PLUS 10ML (DORZOLAMIDE/TIMOLOL) OU ×2 (08:15→20:38)
[2017-06-28] MEDS: LEVEMIR (INSULIN DETEMIR) 1 UNITS/0.01ML SC ×2 (08:15→20:37)
[2017-06-28] MEDS: HumaLOG INSULIN (NovoLOG) PER UNIT SC ×4 (08:16→20:37)
[2017-06-28] MEDS: PANTOPRAZOLE 40MG TAB (PROTONIX) PO (08:18)
[2017-06-28] MEDS ORDERED: CitaloPRAM (CeleXA) 20 MG TAB PO (09:00)
[2017-06-28] MEDS ORDERED: ATORVASTATIN 20 MG TAB PO (09:00)
[2017-06-28 11:07] LABS: FERRITIN 206 NG/ML (26-388); IRON (FE) 12 UG/DL (65-175); PERCENT SATURATION 7.2 % (19.7-50.0); TOTAL IRON BINDING CAPACITY 167 UG/DL (250-450)
[2017-06-28 11:12] LABS: RETIC HEMOGLOBIN EQUIVALENT 28.6 pg (24-36); RETICULOCYTE # 45.1 10^9/L (17-77); RETICULOCYTE % 1.5 % (0.5-1.5)
[2017-06-28 11:14] LABS: VITAMIN B12 LEVEL 552 PG/ML (247-911)
[2017-06-28 11:15] LABS: FOLATE 11.7 NG/ML (>5.4)
[2017-06-28 12:21] LABS: HEMATOCRIT 28.2 % (42.0-52.0); HEMOGLOBIN 9.5 g/dl (13.5-17.5)
[2017-06-28 12:37] LABS: BEDSIDE GLUCOSE 328 MG/DL (70-105)
[2017-06-28 12:39] LABS: INR 0.98; PROTHROMBIN TIME 13.1 SECONDS (12.4-14.5)
[2017-06-28 12:40] LABS: FIBRINOGEN 474 MG/DL (221-452); PARTIAL THROMBOPLASTIN TIME 51.3 SECONDS (26.8-37.9)
[2017-06-28] MEDS ORDERED: fentaNYL 100 MCG/2 ML INJECTION (J3010) As Ordered ×3 (15:29→16:55)
[2017-06-28] MEDS ORDERED: ISOVUE-300 61% 50ML VIAL (Q9967) As Ordered (16:12)
[2017-06-28] MEDS ORDERED: MIDAZOLAM INJ 2 MG/2 ML VIAL (J2250) As Ordered ×2 (16:12→16:56)
[2017-06-28 18:40] LABS: BEDSIDE GLUCOSE 266 MG/DL (70-105)
[2017-06-28] MEDS: LATANOPROST 0.005% OPHTH SOLN 2.5 ML OU (20:37)
[2017-06-28 20:38] LABS: BEDSIDE GLUCOSE 253 MG/DL (70-105)
[2017-06-29 00:19] LABS: HEMATOCRIT 25.9 % (42.0-52.0); HEMOGLOBIN 8.6 g/dl (13.5-17.5)
[2017-06-29] MEDS: NORCO, ANEXSIA 5/325MG TABLET (HYDROcodone/ACETAMINOPHEN) PO ×4 (00:21→20:12)
[2017-06-29] MEDS: MORPHINE 4 MG/ML 1ML VIAL/SYRINGE (J2270) IV ×4 (00:22→23:16)
[2017-06-29 00:31] LABS: INR 1.01; PROTHROMBIN TIME 13.4 SECONDS (12.4-14.5)
[2017-06-29 00:32] LABS: FIBRINOGEN 333 MG/DL (221-452); PARTIAL THROMBOPLASTIN TIME 60.3 SECONDS (26.8-37.9)
[2017-06-29] MEDS: HEPARIN DRIP 25,000 UNITS in APPROPRIATE DILUENT 1 EA IV ×2 (01:27→18:01)
[2017-06-29] MEDS: NS 1,000 ML IV ×2 (01:36→13:23)
[2017-06-29 06:10] LABS: HEMOGLOBIN 8.4 g/dl (13.5-17.5); MEAN CORPUSCULAR HEMOGLOBIN 27.2 pg (27.0-33.0); MEAN CORPUSCULAR HGB CONC 33.6 g/dl (32.0-36.5); MEAN CORPUSCULAR VOLUME 80.9 fl (80.0-96.0); PLATELET COUNT, AUTOMATED 186 10^3/uL (150-450); RED BLOOD COUNT 3.09 10^6/uL (4.30-6.10); RED CELL DISTRIBUTION WIDTH 14.2 % (11.5-14.5); WHITE BLOOD COUNT 12.8 10^3/uL (4.0-10.0)
[2017-06-29 06:23] LABS: INR 1.04; PROTHROMBIN TIME 13.8 SECONDS (12.4-14.5)
[2017-06-29 06:24] LABS: FIBRINOGEN 325 MG/DL (221-452); PARTIAL THROMBOPLASTIN TIME 51.5 SECONDS (26.8-37.9)
[2017-06-29 06:39] LABS: ALBUMIN 2.3 GM/DL (3.2-5.2); ALBUMIN/GLOBULIN RATIO 0.61 (1.00-1.93); ALKALINE PHOSPHATASE 275 U/L (45-117); ALT/SGPT 88 U/L (12-78); ANION GAP 7 MEQ/L (8-16); AST/SGOT 124 U/L (7-37); BILIRUBIN,TOTAL 0.7 MG/DL (0.2-1.0); BLOOD UREA NITROGEN 13 MG/DL (7-18); CALCIUM LEVEL 8.2 MG/DL (8.5-10.1); CARBON DIOXIDE LEVEL 27 MEQ/L (21-32); CHLORIDE LEVEL 100 MEQ/L (98-107); CREATININE FOR GFR 0.78 MG/DL (0.70-1.30); GLOMERULAR FILTRATION RATE > 60.0 (>56); GLUCOSE, FASTING 219 MG/DL (70-100); POTASSIUM SERUM 3.9 MEQ/L (3.5-5.1); SODIUM LEVEL 134 MEQ/L (136-145); TOTAL PROTEIN 6.1 GM/DL (6.4-8.2)
[2017-06-29 08:06] LABS: TRANSFERRIN 133 mg/dL (200-370)
[2017-06-29 08:33] LABS: BEDSIDE GLUCOSE 233 MG/DL (70-105)
[2017-06-29] MEDS: ALTEPLASE RECOMBINANT 25 MG in NS 225 ML IV ×2 (08:46→21:17)
[2017-06-29] MEDS: SENOKOT S TAB PO ×2 (08:56→20:25)
[2017-06-29] MEDS: PANTOPRAZOLE 40MG TAB (PROTONIX) PO (08:56)
[2017-06-29] MEDS: DOCUSATE SODIUM 100 MG CAP PO ×2 (08:56→20:25)
[2017-06-29] MEDS: predniSONE 5 MG TAB PO (08:56)
[2017-06-29] MEDS: LEVEMIR (INSULIN DETEMIR) 1 UNITS/0.01ML SC ×2 (08:57→20:26)
[2017-06-29] MEDS: HumaLOG INSULIN (NovoLOG) PER UNIT SC ×4 (08:57→20:25)
[2017-06-29] MEDS: COSOPT OCUMETER PLUS 10ML (DORZOLAMIDE/TIMOLOL) OU ×2 (08:58→20:26)
[2017-06-29 11:23] LABS: HEPATITIS C VIRUS ABY INDEX 0.6 INDEX (<0.8)
[2017-06-29 11:24] LABS: HEPATITIS B CORE ANTIBODY IGM NEGATIVE (NEGATIVE)
[2017-06-29 11:25] LABS: HEPATITIS A ANTIBODY IGM NEGATIVE (NEGATIVE)
[2017-06-29 11:39] LABS: HEPATITIS B SURFACE ANTIGEN NEGATIVE (NEGATIVE)
[2017-06-29 11:59] LABS: BEDSIDE GLUCOSE 252 MG/DL (70-105)
[2017-06-29 12:53] LABS: HEMATOCRIT 25.2 % (42.0-52.0); HEMOGLOBIN 8.4 g/dl (13.5-17.5)
[2017-06-29 13:08] LABS: PROTHROMBIN TIME 13.3 SECONDS (12.4-14.5)
[2017-06-29 13:09] LABS: FIBRINOGEN 305 MG/DL (221-452); PARTIAL THROMBOPLASTIN TIME 56.6 SECONDS (26.8-37.9)
[2017-06-29] MEDS ORDERED: **hydrALAZINE HCL** 25 MG TAB PO (13:15)
[2017-06-29 15:18] LABS: IMMEDIATE SPIN CROSSMATCH 1 1
[2017-06-29 17:39] LABS: BEDSIDE GLUCOSE 313 MG/DL (70-105)
[2017-06-29 18:34] LABS: HEMATOCRIT 27.4 % (42.0-52.0); HEMOGLOBIN 9.2 g/dl (13.5-17.5)
[2017-06-29 18:49] LABS: INR 0.99; PROTHROMBIN TIME 13.2 SECONDS (12.4-14.5)
[2017-06-29 18:50] LABS: FIBRINOGEN 308 MG/DL (221-452); PARTIAL THROMBOPLASTIN TIME 57.4 SECONDS (26.8-37.9)
[2017-06-29] MEDS: hydrALAZINE INJ 20 MG/ML VIAL IV (18:51)
[2017-06-29 20:26] LABS: BEDSIDE GLUCOSE 348 MG/DL (70-105)
[2017-06-29] MEDS: LATANOPROST 0.005% OPHTH SOLN 2.5 ML OU (20:26)
[2017-06-29 23:54] LABS: HEMOGLOBIN 8.5 g/dl (13.5-17.5)
[2017-06-30 00:05] LABS: INR 1.01; PROTHROMBIN TIME 13.4 SECONDS (12.4-14.5)
[2017-06-30 00:06] LABS: FIBRINOGEN 283 MG/DL (221-452)
[2017-06-30] MEDS: NORCO, ANEXSIA 5/325MG TABLET (HYDROcodone/ACETAMINOPHEN) PO ×3 (01:25→12:47)
[2017-06-30 06:16] LABS: HEMATOCRIT 25.7 % (42.0-52.0); HEMOGLOBIN 8.7 g/dl (13.5-17.5)
[2017-06-30 06:32] LABS: FIBRINOGEN 267 MG/DL (221-452); INR 1.01; PROTHROMBIN TIME 13.4 SECONDS (12.4-14.5)
[2017-06-30 06:33] LABS: PARTIAL THROMBOPLASTIN TIME 63.8 SECONDS (26.8-37.9)
[2017-06-30] MEDS: DOCUSATE SODIUM 100 MG CAP PO ×2 (08:07→20:03)
[2017-06-30] MEDS: predniSONE 5 MG TAB PO (08:07)
[2017-06-30] MEDS: PANTOPRAZOLE 40MG TAB (PROTONIX) PO (08:08)
[2017-06-30] MEDS: SENOKOT S TAB PO ×2 (08:08→20:03)
[2017-06-30] MEDS: **hydrALAZINE** 10 MG TAB PO ×3 (08:09→23:04)
[2017-06-30] MEDS: HumaLOG INSULIN (NovoLOG) PER UNIT SC ×4 (08:11→20:45)
[2017-06-30] MEDS: LEVEMIR (INSULIN DETEMIR) 1 UNITS/0.01ML SC (08:12)
[2017-06-30] MEDS: COSOPT OCUMETER PLUS 10ML (DORZOLAMIDE/TIMOLOL) OU ×2 (08:12→20:04)
[2017-06-30 08:18] LABS: BEDSIDE GLUCOSE 276 MG/DL (70-105)
[2017-06-30 09:20] LABS: IMMEDIATE SPIN CROSSMATCH 1 1
[2017-06-30 11:45] LABS: HEMATOCRIT 28.9 % (42.0-52.0); HEMOGLOBIN 9.8 g/dl (13.5-17.5)
[2017-06-30 11:57] LABS: FIBRINOGEN 274 MG/DL (221-452); INR 1.03; PROTHROMBIN TIME 13.6 SECONDS (12.4-14.5)
[2017-06-30 11:58] LABS: PARTIAL THROMBOPLASTIN TIME 54.7 SECONDS (26.8-37.9)
[2017-06-30 12:37] LABS: BEDSIDE GLUCOSE 194 MG/DL (70-105)
[2017-06-30] MEDS: METOPROLOL TART 12.5 MG PER 1/2 TAB PO ×2 (12:40→20:04)
[2017-06-30] MEDS: FERROUS SULFATE 325MG TAB PO ×2 (12:41→20:03)
[2017-06-30] MEDS: ALTEPLASE RECOMBINANT 25 MG in NS 225 ML IV (17:42)
[2017-06-30 17:53] LABS: BEDSIDE GLUCOSE 128 MG/DL (70-105)
[2017-06-30 18:17] LABS: HEMOGLOBIN 10.1 g/dl (13.5-17.5)
[2017-06-30 19:01] LABS: FIBRINOGEN 292 MG/DL (221-452); INR 1.07; PROTHROMBIN TIME 14.1 SECONDS (12.4-14.5)
[2017-06-30 19:02] LABS: PARTIAL THROMBOPLASTIN TIME 52.7 SECONDS (26.8-37.9)
[2017-06-30] MEDS: HEPARIN DRIP 25,000 UNITS in APPROPRIATE DILUENT 1 EA IV (19:07)
[2017-06-30] MEDS: LATANOPROST 0.005% OPHTH SOLN 2.5 ML OU (20:04)
[2017-06-30 20:49] LABS: BEDSIDE GLUCOSE 255 MG/DL (70-105)
[2017-06-30] MEDS ORDERED: LEVEMIR (INSULIN DETEMIR) 1 UNITS/0.01ML SC (21:00)
[2017-06-30] MEDS: cloNIDine 0.1 MG TAB PO (21:35)
[2017-06-30] MEDS: NS 1,000 ML IV (21:56)
[2017-06-30 23:54] LABS: HEMATOCRIT 27.7 % (42.0-52.0); HEMOGLOBIN 9.5 g/dl (13.5-17.5)
[2017-07-01 00:04] LABS: INR 1.06
[2017-07-01 00:05] LABS: FIBRINOGEN 261 MG/DL (221-452)
[2017-07-01 00:06] LABS: PARTIAL THROMBOPLASTIN TIME 53.8 SECONDS (26.8-37.9)
[2017-07-01] MEDS: NORCO, ANEXSIA 5/325MG TABLET (HYDROcodone/ACETAMINOPHEN) PO ×3 (01:32→20:14)
[2017-07-01 05:56] LABS: HEMATOCRIT 27.7 % (42.0-52.0); HEMOGLOBIN 9.3 g/dl (13.5-17.5)
[2017-07-01 06:09] LABS: INR 1.13; PROTHROMBIN TIME 14.7 SECONDS (12.4-14.5)
[2017-07-01 06:10] LABS: FIBRINOGEN 336 MG/DL (221-452); PARTIAL THROMBOPLASTIN TIME 57.4 SECONDS (26.8-37.9)
[2017-07-01 07:43] LABS: BEDSIDE GLUCOSE 311 MG/DL (70-105)
[2017-07-01] MEDS: DOCUSATE SODIUM 100 MG CAP PO ×2 (08:07→20:09)
[2017-07-01] MEDS: HumaLOG INSULIN (NovoLOG) PER UNIT SC ×4 (08:07→20:50)
[2017-07-01] MEDS: **hydrALAZINE** 10 MG TAB PO (08:08)
[2017-07-01] MEDS: PANTOPRAZOLE 40MG TAB (PROTONIX) PO (08:08)
[2017-07-01] MEDS: METOPROLOL TART 12.5 MG PER 1/2 TAB PO ×2 (08:08→20:10)
[2017-07-01] MEDS: predniSONE 5 MG TAB PO (08:08)
[2017-07-01] MEDS: FERROUS SULFATE 325MG TAB PO ×2 (08:08→20:09)
[2017-07-01] MEDS: COSOPT OCUMETER PLUS 10ML (DORZOLAMIDE/TIMOLOL) OU ×2 (08:09→20:11)
[2017-07-01] MEDS: SENOKOT S TAB PO ×2 (08:09→20:10)
[2017-07-01] MEDS: cloNIDine 0.1 MG TAB PO ×3 (11:58→20:11)
[2017-07-01 12:12] LABS: HEMATOCRIT 26.9 % (42.0-52.0); HEMOGLOBIN 9.1 g/dl (13.5-17.5)
[2017-07-01 12:22] LABS: ANION GAP 11 MEQ/L (8-16); BLOOD UREA NITROGEN 15 MG/DL (7-18); CALCIUM LEVEL 7.9 MG/DL (8.5-10.1); CARBON DIOXIDE LEVEL 23 MEQ/L (21-32); CHLORIDE LEVEL 98 MEQ/L (98-107); CREATININE FOR GFR 0.74 MG/DL (0.70-1.30); GLOMERULAR FILTRATION RATE > 60.0 (>56); GLUCOSE, FASTING 277 MG/DL (70-100); POTASSIUM SERUM 3.7 MEQ/L (3.5-5.1); SODIUM LEVEL 132 MEQ/L (136-145)
[2017-07-01 12:40] LABS: INR 1.06
[2017-07-01 12:41] LABS: FIBRINOGEN 319 MG/DL (221-452)
[2017-07-01 12:42] LABS: PARTIAL THROMBOPLASTIN TIME 51.7 SECONDS (26.8-37.9)
[2017-07-01] MEDS: NS 1,000 ML IV (13:26)
[2017-07-01] MEDS: ALTEPLASE RECOMBINANT 25 MG in NS 225 ML IV (14:48)
[2017-07-01 17:52] LABS: BEDSIDE GLUCOSE 390 MG/DL (70-105)
[2017-07-01 18:02] LABS: HEMATOCRIT 27.1 % (42.0-52.0); HEMOGLOBIN 9.2 g/dl (13.5-17.5)
[2017-07-01 18:13] LABS: INR 1.03; PROTHROMBIN TIME 13.7 SECONDS (12.4-14.5)
[2017-07-01 18:14] LABS: FIBRINOGEN 326 MG/DL (221-452)
[2017-07-01 18:15] LABS: PARTIAL THROMBOPLASTIN TIME 53.1 SECONDS (26.8-37.9)
[2017-07-01] MEDS: LATANOPROST 0.005% OPHTH SOLN 2.5 ML OU (20:11)
[2017-07-01] MEDS: HEPARIN DRIP 25,000 UNITS in APPROPRIATE DILUENT 1 EA IV (20:12)
[2017-07-01 20:47] LABS: BEDSIDE GLUCOSE 258 MG/DL (70-105)
[2017-07-01 23:51] LABS: HEMATOCRIT 25.3 % (42.0-52.0); HEMOGLOBIN 8.7 g/dl (13.5-17.5)
[2017-07-02 00:02] LABS: INR 1.06; PROTHROMBIN TIME 13.9 SECONDS (12.4-14.5)
[2017-07-02 00:03] LABS: FIBRINOGEN 288 MG/DL (221-452)
[2017-07-02 00:04] LABS: PARTIAL THROMBOPLASTIN TIME 56.1 SECONDS (26.8-37.9)
[2017-07-02] MEDS: NORCO, ANEXSIA 5/325MG TABLET (HYDROcodone/ACETAMINOPHEN) PO ×3 (05:55→19:01)
[2017-07-02 06:05] LABS: HEMATOCRIT 25.7 % (42.0-52.0); HEMOGLOBIN 8.6 g/dl (13.5-17.5); MEAN CORPUSCULAR HGB CONC 33.5 g/dl (32.0-36.5); MEAN CORPUSCULAR VOLUME 83.7 fl (80.0-96.0); PLATELET COUNT, AUTOMATED 164 10^3/uL (150-450); RED BLOOD COUNT 3.07 10^6/uL (4.30-6.10); RED CELL DISTRIBUTION WIDTH 14.3 % (11.5-14.5); WHITE BLOOD COUNT 11.4 10^3/uL (4.0-10.0)
[2017-07-02 06:28] LABS: INR 1.12; PROTHROMBIN TIME 14.6 SECONDS (12.4-14.5)
[2017-07-02 06:29] LABS: FIBRINOGEN 272 MG/DL (221-452); PARTIAL THROMBOPLASTIN TIME 56.1 SECONDS (26.8-37.9)
[2017-07-02 06:31] LABS: ANION GAP 12 MEQ/L (8-16); BLOOD UREA NITROGEN 17 MG/DL (7-18); CALCIUM LEVEL 8.3 MG/DL (8.5-10.1); CARBON DIOXIDE LEVEL 21 MEQ/L (21-32); CHLORIDE LEVEL 100 MEQ/L (98-107); CREATININE FOR GFR 0.85 MG/DL (0.70-1.30); GLOMERULAR FILTRATION RATE > 60.0 (>56); GLUCOSE, FASTING 274 MG/DL (70-100); POTASSIUM SERUM 4.2 MEQ/L (3.5-5.1); SODIUM LEVEL 133 MEQ/L (136-145)
[2017-07-02] MEDS: HumaLOG INSULIN (NovoLOG) PER UNIT SC ×5 (07:30→21:05)
[2017-07-02] MEDS: FERROUS SULFATE 325MG TAB PO ×2 (08:47→21:06)
[2017-07-02] MEDS: PANTOPRAZOLE 40MG TAB (PROTONIX) PO (08:47)
[2017-07-02] MEDS: predniSONE 5 MG TAB PO (08:47)
[2017-07-02] MEDS: METOPROLOL TART 12.5 MG PER 1/2 TAB PO ×2 (08:47→21:06)
[2017-07-02] MEDS: SENOKOT S TAB PO ×2 (08:47→21:07)
[2017-07-02] MEDS: DOCUSATE SODIUM 100 MG CAP PO ×2 (08:48→21:07)
[2017-07-02] MEDS: COSOPT OCUMETER PLUS 10ML (DORZOLAMIDE/TIMOLOL) OU ×2 (08:48→21:07)
[2017-07-02] MEDS: cloNIDine 0.1 MG TAB PO ×3 (08:48→21:07)
[2017-07-02] MEDS: NS 1,000 ML IV (12:03)
[2017-07-02 12:25] LABS: BEDSIDE GLUCOSE 276 MG/DL (70-105)
[2017-07-02 13:05] LABS: HEMATOCRIT 25.6 % (42.0-52.0); HEMOGLOBIN 8.7 g/dl (13.5-17.5)
[2017-07-02 13:19] LABS: INR 1.06
[2017-07-02 13:20] LABS: FIBRINOGEN 249 MG/DL (221-452); PARTIAL THROMBOPLASTIN TIME 43.3 SECONDS (26.8-37.9)
[2017-07-02] MEDS: ALTEPLASE RECOMBINANT 25 MG in NS 225 ML IV (13:51)
[2017-07-02] MEDS: MORPHINE 4 MG/ML 1ML VIAL/SYRINGE (J2270) IV (15:21)
[2017-07-02] MEDS ORDERED: ISOVUE-300 61% 50ML VIAL (Q9967) As Ordered (17:20)
[2017-07-02 19:04] LABS: BEDSIDE GLUCOSE 380 MG/DL (70-105)
[2017-07-02 20:50] LABS: BEDSIDE GLUCOSE 367 MG/DL (70-105)
[2017-07-02 21:00] LABS: HEMATOCRIT 21.8 % (42.0-52.0); HEMOGLOBIN 7.3 g/dl (13.5-17.5)
[2017-07-02] MEDS: LEVEMIR (INSULIN DETEMIR) 1 UNITS/0.01ML SC (21:05)
[2017-07-02] MEDS: SODIUM CHLORIDE 0.9% INJ 10 ML SYR IV (21:06)
[2017-07-02] MEDS: LATANOPROST 0.005% OPHTH SOLN 2.5 ML OU (21:07)
[2017-07-02 21:17] LABS: INR 1.17; PROTHROMBIN TIME 15.1 SECONDS (12.4-14.5)
[2017-07-02 21:18] LABS: FIBRINOGEN 197 MG/DL (221-452)
[2017-07-02 21:19] LABS: PARTIAL THROMBOPLASTIN TIME 43.9 SECONDS (26.8-37.9)
[2017-07-03] MEDS: SODIUM CHLORIDE 0.9% INJ 10 ML SYR IV ×3 (03:41→18:08)
[2017-07-03] MEDS: MORPHINE 4 MG/ML 1ML VIAL/SYRINGE (J2270) IV ×2 (03:41→20:18)
[2017-07-03 05:40] LABS: HEMATOCRIT 22.1 % (42.0-52.0); HEMOGLOBIN 7.5 g/dl (13.5-17.5); MEAN CORPUSCULAR HEMOGLOBIN 28.3 pg (27.0-33.0); MEAN CORPUSCULAR HGB CONC 33.9 g/dl (32.0-36.5); MEAN CORPUSCULAR VOLUME 83.4 fl (80.0-96.0); PLATELET COUNT, AUTOMATED 165 10^3/uL (150-450); RED BLOOD COUNT 2.65 10^6/uL (4.30-6.10); RED CELL DISTRIBUTION WIDTH 13.9 % (11.5-14.5); WHITE BLOOD COUNT 9.4 10^3/uL (4.0-10.0)
[2017-07-03 06:05] LABS: ALBUMIN 1.8 GM/DL (3.2-5.2); ALBUMIN/GLOBULIN RATIO 0.51 (1.00-1.93); ALKALINE PHOSPHATASE 314 U/L (45-117); ALT/SGPT 53 U/L (12-78); ANION GAP 7 MEQ/L (8-16); AST/SGOT 52 U/L (7-37); BILIRUBIN,DIRECT 0.3 MG/DL (0.0-0.2); BILIRUBIN,TOTAL 0.6 MG/DL (0.2-1.0); BLOOD UREA NITROGEN 16 MG/DL (7-18); CALCIUM LEVEL 7.2 MG/DL (8.5-10.1); CARBON DIOXIDE LEVEL 25 MEQ/L (21-32); CHLORIDE LEVEL 104 MEQ/L (98-107); CREATININE FOR GFR 0.76 MG/DL (0.70-1.30); GLOMERULAR FILTRATION RATE > 60.0 (>56); GLUCOSE, FASTING 239 MG/DL (70-100); SODIUM LEVEL 136 MEQ/L (136-145); TOTAL PROTEIN 5.3 GM/DL (6.4-8.2)
[2017-07-03 08:09] LABS: BEDSIDE GLUCOSE 238 MG/DL (70-105)
[2017-07-03] MEDS: HumaLOG INSULIN (NovoLOG) PER UNIT SC ×4 (08:15→20:17)
[2017-07-03] MEDS: DOCUSATE SODIUM 100 MG CAP PO ×2 (08:15→20:16)
[2017-07-03] MEDS: FERROUS SULFATE 325MG TAB PO ×2 (08:16→20:15)
[2017-07-03] MEDS: METOPROLOL TART 12.5 MG PER 1/2 TAB PO ×2 (08:16→20:16)
[2017-07-03] MEDS: PANTOPRAZOLE 40MG TAB (PROTONIX) PO (08:16)
[2017-07-03] MEDS: predniSONE 5 MG TAB PO (08:16)
[2017-07-03] MEDS: cloNIDine 0.1 MG TAB PO ×3 (08:17→20:16)
[2017-07-03] MEDS: SENOKOT S TAB PO ×2 (08:17→20:16)
[2017-07-03] MEDS: COSOPT OCUMETER PLUS 10ML (DORZOLAMIDE/TIMOLOL) OU ×2 (08:17→20:15)
[2017-07-03 09:59] LABS: ESTIMATED AVERAGE GLUCOSE 154 MG/DL (60-110)
[2017-07-03] MEDS: NS 1,000 ML IV (10:23)
[2017-07-03 12:18] LABS: BEDSIDE GLUCOSE 227 MG/DL (70-105)
[2017-07-03] MEDS: ACETAMINOPHEN TAB 650MG DOSE (2X325MG) PO (12:31)
[2017-07-03] MEDS: ONDANSETRON 4MG/2ML VIAL (J2405) IV (13:24)
[2017-07-03] MEDS: MOM 30ML SUSPENSION UDC PO (16:02)
[2017-07-03 16:12] LABS: KETONE, URINE AUTO RFX TRACE mg/dL (NEGATIVE); LEUKOCYTE ESTERASE UR AUTO RFX NEGATIVE (NEGATIVE); MUCUS, URINE RFX SMALL (NEGATIVE); NITRITE, URINE AUTO RFX NEGATIVE (NEGATIVE); RBC, URINE AUTO RFX 4 /HPF (0-3); SPECIFIC GRAVITY UR AUTO RFX 1.011 (1.002-1.035); SQUAM EPITHELIAL CELL UR AURFX 0 /HPF (0-6); WBC, URINE AUTO RFX 0 /HPF (0-3)
[2017-07-03] MEDS: NORCO, ANEXSIA 5/325MG TABLET (HYDROcodone/ACETAMINOPHEN) PO (16:31)
[2017-07-03 17:06] LABS: LACTIC ACID SEPSIS PROTOCOL 1.7 MMOL/L (0.4-2.0)
[2017-07-03 17:09] LABS: BEDSIDE GLUCOSE 368 MG/DL (70-105)
[2017-07-03 17:28] LABS: REASON FOR REVIEW ANEMIA / RBC MORPH; SLIDE REVIEW Report; SOURCE PERIPHERAL SMEAR
[2017-07-03] MEDS: LATANOPROST 0.005% OPHTH SOLN 2.5 ML OU (20:15)
[2017-07-03] MEDS: LEVEMIR (INSULIN DETEMIR) 1 UNITS/0.01ML SC (20:17)
[2017-07-03 20:35] LABS: BEDSIDE GLUCOSE 364 MG/DL (70-105)
[2017-07-04 01:02] LABS: BEDSIDE GLUCOSE 215 MG/DL (70-105)
[2017-07-04] MEDS: ACETAMINOPHEN TAB 650MG DOSE (2X325MG) PO ×2 (01:10→12:08)
[2017-07-04] MEDS: ONDANSETRON 4MG/2ML VIAL (J2405) IV (01:10)
[2017-07-04] MEDS: MORPHINE 4 MG/ML 1ML VIAL/SYRINGE (J2270) IV ×2 (02:53→13:22)
[2017-07-04 05:10] LABS: HEMATOCRIT 28.2 % (42.0-52.0); HEMOGLOBIN 9.4 g/dl (13.5-17.5); MEAN CORPUSCULAR HEMOGLOBIN 28.1 pg (27.0-33.0); MEAN CORPUSCULAR HGB CONC 33.3 g/dl (32.0-36.5); MEAN CORPUSCULAR VOLUME 84.4 fl (80.0-96.0); PLATELET COUNT, AUTOMATED 257 10^3/uL (150-450); RED BLOOD COUNT 3.34 10^6/uL (4.30-6.10); WHITE BLOOD COUNT 10.9 10^3/uL (4.0-10.0)
[2017-07-04 05:24] LABS: ANION GAP 6 MEQ/L (8-16); BLOOD UREA NITROGEN 16 MG/DL (7-18); CALCIUM LEVEL 8.5 MG/DL (8.5-10.1); CARBON DIOXIDE LEVEL 27 MEQ/L (21-32); CHLORIDE LEVEL 100 MEQ/L (98-107); CREATININE FOR GFR 0.95 MG/DL (0.70-1.30); GLOMERULAR FILTRATION RATE > 60.0 (>56); GLUCOSE, FASTING 227 MG/DL (70-100); POTASSIUM SERUM 4.1 MEQ/L (3.5-5.1); SODIUM LEVEL 133 MEQ/L (136-145)
[2017-07-04] MEDS: SODIUM CHLORIDE 0.9% INJ 10 ML SYR IV ×2 (06:12→17:20)
[2017-07-04 08:10] LABS: BEDSIDE GLUCOSE 239 MG/DL (70-105)
[2017-07-04] MEDS: MOM 30ML SUSPENSION UDC PO (08:16)
[2017-07-04] MEDS: HumaLOG INSULIN (NovoLOG) PER UNIT SC ×4 (08:17→20:38)
[2017-07-04] MEDS: METOPROLOL TART 12.5 MG PER 1/2 TAB PO ×2 (08:17→20:29)
[2017-07-04] MEDS: DOCUSATE SODIUM 100 MG CAP PO ×2 (08:17→20:27)
[2017-07-04] MEDS: SENOKOT S TAB PO ×2 (08:17→20:29)
[2017-07-04] MEDS: cloNIDine 0.1 MG TAB PO ×3 (08:18→20:27)
[2017-07-04] MEDS: COSOPT OCUMETER PLUS 10ML (DORZOLAMIDE/TIMOLOL) OU ×2 (08:19→20:29)
[2017-07-04] MEDS: FERROUS SULFATE 325MG TAB PO ×2 (08:19→20:27)
[2017-07-04] MEDS: PANTOPRAZOLE 40MG TAB (PROTONIX) PO (08:19)
[2017-07-04] MEDS: predniSONE 5 MG TAB PO (08:19)
[2017-07-04] MEDS: NORCO, ANEXSIA 5/325MG TABLET (HYDROcodone/ACETAMINOPHEN) PO ×4 (08:34→20:28)
[2017-07-04] MEDS: NS 1,000 ML IV (10:49)
[2017-07-04] MEDS: BISACODYL 10 MG SUPP PR (11:36)
[2017-07-04 12:11] LABS: BEDSIDE GLUCOSE 226 MG/DL (70-105)
[2017-07-04 17:18] LABS: BEDSIDE GLUCOSE 401 MG/DL (70-105)
[2017-07-04 20:05] LABS: BEDSIDE GLUCOSE 422 MG/DL (70-105)
[2017-07-04] MEDS: CLOPIDOGREL 300 MG TAB (PLAVIX) PO (20:27)
[2017-07-04] MEDS: PIPERACILLIN/TAZOBACTAM SOD 3.375 GM in APPROPRIATE DILUENT 1 EA IV (20:27)
[2017-07-04] MEDS: HEPARIN SOD (PORCINE) 5000 UNITS/ML VIAL SQ (20:29)
[2017-07-04] MEDS: LATANOPROST 0.005% OPHTH SOLN 2.5 ML OU (20:29)
[2017-07-04] MEDS ORDERED: RIZATRIPTAN BENZOATE 10 MG TAB PO ×2 (20:45→21:45)
[2017-07-04] MEDS ORDERED: ACETAMINOPHEN 500 MG TAB PO (20:45)
[2017-07-04] MEDS ORDERED: TIMOLOL MALEATE 0.5% OPHTH SOLN 5 ML OU (21:00)
[2017-07-04] MEDS ORDERED: MIDODRINE 5 MG TAB PO (21:00)
[2017-07-04] MEDS ORDERED: LEVEMIR (INSULIN DETEMIR) 1 UNITS/0.01ML SC (21:00)
[2017-07-04] MEDS ORDERED: LATANOPROST 0.005% OPHTH SOLN 2.5 ML OU (21:00)
[2017-07-04] MEDS ORDERED: BRINZOLAMIDE 1 % OPHTH SUSP (AZOPT) 10ML OU (21:00)
[2017-07-05] MEDS: HumaLOG INSULIN (NovoLOG) PER UNIT SC ×4 (01:18→18:12)
[2017-07-05] MEDS: PIPERACILLIN/TAZOBACTAM SOD 3.375 GM in APPROPRIATE DILUENT 1 EA IV ×4 (01:18→20:53)
[2017-07-05 03:45] LABS: BEDSIDE GLUCOSE 294 MG/DL (70-105)
[2017-07-05] MEDS: SODIUM CHLORIDE 0.9% INJ 10 ML SYR IV ×2 (05:45→17:55)
[2017-07-05 06:04] LABS: BEDSIDE GLUCOSE 349 MG/DL (70-105)
[2017-07-05 06:56] LABS: HEMATOCRIT 25.8 % (42.0-52.0); HEMOGLOBIN 8.6 g/dl (13.5-17.5); MEAN CORPUSCULAR HEMOGLOBIN 28.3 pg (27.0-33.0); MEAN CORPUSCULAR HGB CONC 33.3 g/dl (32.0-36.5); MEAN CORPUSCULAR VOLUME 84.9 fl (80.0-96.0); PLATELET COUNT, AUTOMATED 360 10^3/uL (150-450); RED BLOOD COUNT 3.04 10^6/uL (4.30-6.10); RED CELL DISTRIBUTION WIDTH 14.3 % (11.5-14.5)
[2017-07-05 07:25] LABS: ALBUMIN 2.1 GM/DL (3.2-5.2); ALBUMIN/GLOBULIN RATIO 0.53 (1.00-1.93); ALKALINE PHOSPHATASE 376 U/L (45-117); ALT/SGPT 56 U/L (12-78); ANION GAP 9 MEQ/L (8-16); AST/SGOT 43 U/L (7-37); BILIRUBIN,DIRECT 0.3 MG/DL (0.0-0.2); BILIRUBIN,TOTAL 0.7 MG/DL (0.2-1.0); BLOOD UREA NITROGEN 17 MG/DL (7-18); CALCIUM LEVEL 8.4 MG/DL (8.5-10.1); CARBON DIOXIDE LEVEL 25 MEQ/L (21-32); CHLORIDE LEVEL 99 MEQ/L (98-107); CREATININE FOR GFR 0.97 MG/DL (0.70-1.30); GLOMERULAR FILTRATION RATE > 60.0 (>56); GLUCOSE, FASTING 318 MG/DL (70-100); POTASSIUM SERUM 4.5 MEQ/L (3.5-5.1); SODIUM LEVEL 133 MEQ/L (136-145); TOTAL PROTEIN 6.1 GM/DL (6.4-8.2)
[2017-07-05] MEDS: NS 1,000 ML IV (07:40)
[2017-07-05] MEDS: predniSONE 5 MG TAB PO (08:46)
[2017-07-05] MEDS: ASPIRIN 81 MG ENTERIC TAB PO (08:46)
[2017-07-05] MEDS: ATORVASTATIN 20 MG TAB PO (08:47)
[2017-07-05] MEDS: METOPROLOL TART 12.5 MG PER 1/2 TAB PO ×2 (08:48→20:56)
[2017-07-05] MEDS: CLOPIDOGREL 75 MG TAB PO (08:48)
[2017-07-05] MEDS: CitaloPRAM (CeleXA) 20 MG TAB PO (08:48)
[2017-07-05] MEDS: FERROUS SULFATE 325MG TAB PO ×2 (08:49→20:55)
[2017-07-05] MEDS: cloNIDine 0.1 MG TAB PO ×3 (08:49→20:56)
[2017-07-05] MEDS: PANTOPRAZOLE 40MG TAB (PROTONIX) PO (08:49)
[2017-07-05] MEDS: DOCUSATE SODIUM 100 MG CAP PO ×2 (08:50→20:55)
[2017-07-05] MEDS: COSOPT OCUMETER PLUS 10ML (DORZOLAMIDE/TIMOLOL) OU ×2 (08:50→20:57)
[2017-07-05] MEDS: SENOKOT S TAB PO ×2 (08:50→20:55)
[2017-07-05] MEDS: HEPARIN SOD (PORCINE) 5000 UNITS/ML VIAL SQ ×2 (08:50→20:57)
[2017-07-05] MEDS ORDERED: ASPIRIN 81 MG ENTERIC TAB PO (09:00)
[2017-07-05] MEDS ORDERED: CitaloPRAM (CeleXA) 20 MG TAB PO (09:00)
[2017-07-05] MEDS ORDERED: FLUDROCORTISONE ACETATE 0.1 MG TAB PO (09:00)
[2017-07-05] MEDS ORDERED: PANTOPRAZOLE 40MG TAB (PROTONIX) PO (09:00)
[2017-07-05] MEDS ORDERED: ATORVASTATIN 20 MG TAB PO (09:00)
[2017-07-05] MEDS ORDERED: TIMOLOL XE GFS 0.5% OPHTH 5 ML OU (09:00)
[2017-07-05 12:48] LABS: BEDSIDE GLUCOSE 321 MG/DL (70-105)
[2017-07-05] MEDS: FLUDROCORTISONE ACETATE 0.1 MG TAB PO (12:50)
[2017-07-05] MEDS: NORCO, ANEXSIA 5/325MG TABLET (HYDROcodone/ACETAMINOPHEN) PO ×2 (13:43→20:53)
[2017-07-05] MEDS: MORPHINE 4 MG/ML 1ML VIAL/SYRINGE (J2270) IV (15:38)
[2017-07-05 17:24] LABS: BEDSIDE GLUCOSE 366 MG/DL (70-105)
[2017-07-05] MEDS: LATANOPROST 0.005% OPHTH SOLN 2.5 ML OU (20:57)
[2017-07-06] MEDS: ONDANSETRON 4MG/2ML VIAL (J2405) IV ×2 (00:22→06:22)
[2017-07-06 00:23] LABS: BEDSIDE GLUCOSE 338 MG/DL (70-105)
[2017-07-06] MEDS: HumaLOG INSULIN (NovoLOG) PER UNIT SC ×4 (01:25→17:50)
[2017-07-06] MEDS: NORCO, ANEXSIA 5/325MG TABLET (HYDROcodone/ACETAMINOPHEN) PO ×3 (01:26→20:41)
[2017-07-06] MEDS: PIPERACILLIN/TAZOBACTAM SOD 3.375 GM in APPROPRIATE DILUENT 1 EA IV ×4 (01:26→20:40)
[2017-07-06 06:15] LABS: BEDSIDE GLUCOSE 290 MG/DL (70-105)
[2017-07-06] MEDS: SODIUM CHLORIDE 0.9% INJ 10 ML SYR IV ×2 (06:19→17:19)
[2017-07-06 06:50] LABS: HEMATOCRIT 26.7 % (42.0-52.0); HEMOGLOBIN 8.8 g/dl (13.5-17.5); MEAN CORPUSCULAR HEMOGLOBIN 27.8 pg (27.0-33.0); MEAN CORPUSCULAR VOLUME 84.2 fl (80.0-96.0); RED BLOOD COUNT 3.17 10^6/uL (4.30-6.10); RED CELL DISTRIBUTION WIDTH 14.1 % (11.5-14.5); WHITE BLOOD COUNT 11.4 10^3/uL (4.0-10.0)
[2017-07-06 07:02] LABS: PLATELET COUNT, AUTOMATED 504 10^3/uL (150-450)
[2017-07-06 07:23] LABS: ANION GAP 8 MEQ/L (8-16); BLOOD UREA NITROGEN 12 MG/DL (7-18); CALCIUM LEVEL 8.4 MG/DL (8.5-10.1); CARBON DIOXIDE LEVEL 26 MEQ/L (21-32); CHLORIDE LEVEL 97 MEQ/L (98-107); CREATININE FOR GFR 0.93 MG/DL (0.70-1.30); GLOMERULAR FILTRATION RATE > 60.0 (>56); GLUCOSE, FASTING 282 MG/DL (70-100); POTASSIUM SERUM 4.3 MEQ/L (3.5-5.1); SODIUM LEVEL 131 MEQ/L (136-145)
[2017-07-06] MEDS: ATORVASTATIN 20 MG TAB PO (08:49)
[2017-07-06] MEDS: PANTOPRAZOLE 40MG TAB (PROTONIX) PO (08:49)
[2017-07-06] MEDS: DOCUSATE SODIUM 100 MG CAP PO ×2 (08:49→20:40)
[2017-07-06] MEDS: SENOKOT S TAB PO ×2 (08:49→20:40)
[2017-07-06] MEDS: METOPROLOL TART 12.5 MG PER 1/2 TAB PO ×2 (08:49→20:45)
[2017-07-06] MEDS: HEPARIN SOD (PORCINE) 5000 UNITS/ML VIAL SQ ×2 (08:49→20:43)
[2017-07-06] MEDS: cloNIDine 0.1 MG TAB PO ×3 (08:49→20:46)
[2017-07-06] MEDS: predniSONE 5 MG TAB PO (08:49)
[2017-07-06] MEDS: FERROUS SULFATE 325MG TAB PO ×2 (08:49→20:40)
[2017-07-06] MEDS: ASPIRIN 81 MG ENTERIC TAB PO (08:49)
[2017-07-06] MEDS: CitaloPRAM (CeleXA) 20 MG TAB PO (08:50)
[2017-07-06] MEDS: FLUDROCORTISONE ACETATE 0.1 MG TAB PO (08:50)
[2017-07-06] MEDS: CLOPIDOGREL 75 MG TAB PO (08:50)
[2017-07-06] MEDS: COSOPT OCUMETER PLUS 10ML (DORZOLAMIDE/TIMOLOL) OU ×2 (08:50→20:43)
[2017-07-06] MEDS: NS 1,000 ML IV (11:20)
[2017-07-06 12:00] LABS: BEDSIDE GLUCOSE 318 MG/DL (70-105)
[2017-07-06 17:49] LABS: BEDSIDE GLUCOSE 347 MG/DL (70-105)
[2017-07-06] MEDS: LATANOPROST 0.005% OPHTH SOLN 2.5 ML OU (20:43)
[2017-07-06] MEDS: MORPHINE 4 MG/ML 1ML VIAL/SYRINGE (J2270) IV (22:43)
[2017-07-06 23:52] LABS: BEDSIDE GLUCOSE 392 MG/DL (70-105)
[2017-07-07] MEDS: HumaLOG INSULIN (NovoLOG) PER UNIT SC ×4 (00:37→18:00)
[2017-07-07] MEDS: NORCO, ANEXSIA 5/325MG TABLET (HYDROcodone/ACETAMINOPHEN) PO ×3 (00:37→16:07)
[2017-07-07] MEDS: PIPERACILLIN/TAZOBACTAM SOD 3.375 GM in APPROPRIATE DILUENT 1 EA IV ×4 (01:09→20:18)
[2017-07-07] MEDS: SODIUM CHLORIDE 0.9% INJ 10 ML SYR IV ×2 (06:33→16:52)
[2017-07-07 06:49] LABS: ALBUMIN 1.9 GM/DL (3.2-5.2); ALBUMIN/GLOBULIN RATIO 0.44 (1.00-1.93); ALKALINE PHOSPHATASE 349 U/L (45-117); ALT/SGPT 43 U/L (12-78); ANION GAP 6 MEQ/L (8-16); AST/SGOT 24 U/L (7-37); BILIRUBIN,DIRECT 0.2 MG/DL (0.0-0.2); BILIRUBIN,TOTAL 0.5 MG/DL (0.2-1.0); BLOOD UREA NITROGEN 12 MG/DL (7-18); CALCIUM LEVEL 8.6 MG/DL (8.5-10.1); CARBON DIOXIDE LEVEL 29 MEQ/L (21-32); CHLORIDE LEVEL 99 MEQ/L (98-107); CREATININE FOR GFR 0.97 MG/DL (0.70-1.30); GLOMERULAR FILTRATION RATE > 60.0 (>56); GLUCOSE, FASTING 290 MG/DL (70-100); POTASSIUM SERUM 3.9 MEQ/L (3.5-5.1); SODIUM LEVEL 134 MEQ/L (136-145); TOTAL PROTEIN 6.2 GM/DL (6.4-8.2)
[2017-07-07 07:03] LABS: HEMATOCRIT 24.9 % (42.0-52.0); HEMOGLOBIN 8.1 g/dl (13.5-17.5); MEAN CORPUSCULAR HEMOGLOBIN 27.5 pg (27.0-33.0); MEAN CORPUSCULAR HGB CONC 32.5 g/dl (32.0-36.5); MEAN CORPUSCULAR VOLUME 84.4 fl (80.0-96.0); PLATELET COUNT, AUTOMATED 486 10^3/uL (150-450); RED BLOOD COUNT 2.95 10^6/uL (4.30-6.10); RED CELL DISTRIBUTION WIDTH 14.1 % (11.5-14.5); WHITE BLOOD COUNT 11.8 10^3/uL (4.0-10.0)
[2017-07-07] MEDS: COSOPT OCUMETER PLUS 10ML (DORZOLAMIDE/TIMOLOL) OU ×2 (09:00→20:19)
[2017-07-07] MEDS: NS 1,000 ML IV (09:34)
[2017-07-07] MEDS: SENOKOT S TAB PO ×2 (10:10→20:18)
[2017-07-07] MEDS: CitaloPRAM (CeleXA) 20 MG TAB PO (10:10)
[2017-07-07] MEDS: predniSONE 5 MG TAB PO (10:10)
[2017-07-07] MEDS: ASPIRIN 81 MG ENTERIC TAB PO (10:10)
[2017-07-07] MEDS: FERROUS SULFATE 325MG TAB PO ×2 (10:10→20:18)
[2017-07-07] MEDS: METOPROLOL TART 12.5 MG PER 1/2 TAB PO ×2 (10:10→20:19)
[2017-07-07] MEDS: CLOPIDOGREL 75 MG TAB PO (10:11)
[2017-07-07] MEDS: ATORVASTATIN 20 MG TAB PO (10:11)
[2017-07-07] MEDS: DOCUSATE SODIUM 100 MG CAP PO ×2 (10:12→20:18)
[2017-07-07] MEDS: PANTOPRAZOLE 40MG TAB (PROTONIX) PO (10:12)
[2017-07-07] MEDS: cloNIDine 0.1 MG TAB PO ×3 (10:12→20:19)
[2017-07-07] MEDS: FLUDROCORTISONE ACETATE 0.1 MG TAB PO (10:12)
[2017-07-07] MEDS: HEPARIN SOD (PORCINE) 5000 UNITS/ML VIAL SQ ×2 (10:13→20:18)
[2017-07-07] MEDS: MORPHINE 4 MG/ML 1ML VIAL/SYRINGE (J2270) IV (10:30)
[2017-07-07] MEDS: ONDANSETRON 4MG/2ML VIAL (J2405) IV (13:27)
[2017-07-07] MEDS: MOM 30ML SUSPENSION UDC PO (13:55)
[2017-07-07] MEDS: BISACODYL 10 MG SUPP PR (13:55)
[2017-07-07 16:55] LABS: BEDSIDE GLUCOSE 348 MG/DL (70-105)
[2017-07-07] MEDS: LATANOPROST 0.005% OPHTH SOLN 2.5 ML OU (20:19)
[2017-07-07 23:46] LABS: BEDSIDE GLUCOSE 363 MG/DL (70-105)
[2017-07-08] MEDS: HumaLOG INSULIN (NovoLOG) PER UNIT SC ×4 (00:02→18:12)
[2017-07-08] MEDS: NORCO, ANEXSIA 5/325MG TABLET (HYDROcodone/ACETAMINOPHEN) PO ×5 (00:03→20:56)
[2017-07-08] MEDS: PIPERACILLIN/TAZOBACTAM SOD 3.375 GM in APPROPRIATE DILUENT 1 EA IV ×4 (01:40→20:08)
[2017-07-08 06:12] LABS: HEMATOCRIT 25.8 % (42.0-52.0); HEMOGLOBIN 8.4 g/dl (13.5-17.5); MEAN CORPUSCULAR HEMOGLOBIN 27.4 pg (27.0-33.0); MEAN CORPUSCULAR HGB CONC 32.6 g/dl (32.0-36.5); PLATELET COUNT, AUTOMATED 609 10^3/uL (150-450); RED BLOOD COUNT 3.07 10^6/uL (4.30-6.10); RED CELL DISTRIBUTION WIDTH 14.1 % (11.5-14.5); WHITE BLOOD COUNT 12.2 10^3/uL (4.0-10.0)
[2017-07-08 06:22] LABS: BEDSIDE GLUCOSE 278 MG/DL (70-105)
[2017-07-08] MEDS: SODIUM CHLORIDE 0.9% INJ 10 ML SYR IV ×2 (06:22→18:12)
[2017-07-08 06:36] LABS: ANION GAP 10 MEQ/L (8-16); BLOOD UREA NITROGEN 11 MG/DL (7-18); CALCIUM LEVEL 8.5 MG/DL (8.5-10.1); CARBON DIOXIDE LEVEL 26 MEQ/L (21-32); CHLORIDE LEVEL 99 MEQ/L (98-107); CREATININE FOR GFR 0.93 MG/DL (0.70-1.30); GLOMERULAR FILTRATION RATE > 60.0 (>56); GLUCOSE, FASTING 248 MG/DL (70-100); POTASSIUM SERUM 4.4 MEQ/L (3.5-5.1); SODIUM LEVEL 135 MEQ/L (136-145)
[2017-07-08 08:41] LABS: BEDSIDE GLUCOSE 279 MG/DL (70-105)
[2017-07-08 08:41] LABS: BEDSIDE GLUCOSE 314 MG/DL (70-105)
[2017-07-08] MEDS: HEPARIN SOD (PORCINE) 5000 UNITS/ML VIAL SQ ×2 (09:01→20:58)
[2017-07-08] MEDS: cloNIDine 0.1 MG TAB PO ×3 (09:02→20:57)
[2017-07-08] MEDS: NS 1,000 ML IV (09:02)
[2017-07-08] MEDS: SENOKOT S TAB PO ×2 (09:03→20:56)
[2017-07-08] MEDS: ATORVASTATIN 20 MG TAB PO (09:03)
[2017-07-08] MEDS: PANTOPRAZOLE 40MG TAB (PROTONIX) PO (09:03)
[2017-07-08] MEDS: CitaloPRAM (CeleXA) 20 MG TAB PO (09:03)
[2017-07-08] MEDS: predniSONE 5 MG TAB PO (09:04)
[2017-07-08] MEDS: FLUDROCORTISONE ACETATE 0.1 MG TAB PO (09:04)
[2017-07-08] MEDS: METOPROLOL TART 12.5 MG PER 1/2 TAB PO ×2 (09:04→20:57)
[2017-07-08] MEDS: CLOPIDOGREL 75 MG TAB PO (09:04)
[2017-07-08] MEDS: ASPIRIN 81 MG ENTERIC TAB PO (09:04)
[2017-07-08] MEDS: DOCUSATE SODIUM 100 MG CAP PO ×2 (09:04→20:56)
[2017-07-08] MEDS: FERROUS SULFATE 325MG TAB PO ×2 (09:04→20:56)
[2017-07-08] MEDS: COSOPT OCUMETER PLUS 10ML (DORZOLAMIDE/TIMOLOL) OU ×2 (09:05→20:58)
[2017-07-08] MEDS: ONDANSETRON 4MG/2ML VIAL (J2405) IV (11:25)
[2017-07-08] MEDS: BISACODYL 10 MG SUPP PR (11:25)
[2017-07-08] MEDS: MOM 30ML SUSPENSION UDC PO (11:25)
[2017-07-08 12:34] LABS: BEDSIDE GLUCOSE 270 MG/DL (70-105)
[2017-07-08] MEDS: MORPHINE 4 MG/ML 1ML VIAL/SYRINGE (J2270) IV (15:31)
[2017-07-08 16:53] LABS: BEDSIDE GLUCOSE 287 MG/DL (70-105)
[2017-07-08] MEDS: LATANOPROST 0.005% OPHTH SOLN 2.5 ML OU (20:58)
[2017-07-09 00:03] LABS: BEDSIDE GLUCOSE 298 MG/DL (70-105)
[2017-07-09] MEDS: HumaLOG INSULIN (NovoLOG) PER UNIT SC ×4 (00:09→18:03)
[2017-07-09] MEDS: NORCO, ANEXSIA 5/325MG TABLET (HYDROcodone/ACETAMINOPHEN) PO ×5 (01:01→21:16)
[2017-07-09] MEDS: PIPERACILLIN/TAZOBACTAM SOD 3.375 GM in APPROPRIATE DILUENT 1 EA IV ×4 (01:02→19:45)
[2017-07-09] MEDS: SODIUM CHLORIDE 0.9% INJ 10 ML SYR IV ×2 (05:21→18:02)
[2017-07-09 05:47] LABS: BEDSIDE GLUCOSE 258 MG/DL (70-105)
[2017-07-09 07:43] LABS: HEMATOCRIT 26.2 % (42.0-52.0); HEMOGLOBIN 8.4 g/dl (13.5-17.5); MEAN CORPUSCULAR HGB CONC 32.1 g/dl (32.0-36.5); MEAN CORPUSCULAR VOLUME 87.3 fl (80.0-96.0); PLATELET COUNT, AUTOMATED 600 10^3/uL (150-450); RED CELL DISTRIBUTION WIDTH 14.2 % (11.5-14.5); WHITE BLOOD COUNT 10.5 10^3/uL (4.0-10.0)
[2017-07-09 07:56] LABS: ANION GAP 8 MEQ/L (8-16); BLOOD UREA NITROGEN 10 MG/DL (7-18); CALCIUM LEVEL 8.4 MG/DL (8.5-10.1); CARBON DIOXIDE LEVEL 26 MEQ/L (21-32); CHLORIDE LEVEL 102 MEQ/L (98-107); CREATININE FOR GFR 0.93 MG/DL (0.70-1.30); GLOMERULAR FILTRATION RATE > 60.0 (>56); GLUCOSE, FASTING 242 MG/DL (70-100); POTASSIUM SERUM 3.9 MEQ/L (3.5-5.1); SODIUM LEVEL 136 MEQ/L (136-145)
[2017-07-09] MEDS: NS 1,000 ML IV (08:15)
[2017-07-09] MEDS: SENOKOT S TAB PO ×2 (08:16→21:16)
[2017-07-09] MEDS: HEPARIN SOD (PORCINE) 5000 UNITS/ML VIAL SQ ×2 (08:16→21:15)
[2017-07-09] MEDS: FERROUS SULFATE 325MG TAB PO ×2 (08:16→21:16)
[2017-07-09] MEDS: ASPIRIN 81 MG ENTERIC TAB PO (08:17)
[2017-07-09] MEDS: METOPROLOL TART 12.5 MG PER 1/2 TAB PO ×2 (08:17→21:00)
[2017-07-09] MEDS: ATORVASTATIN 20 MG TAB PO (08:17)
[2017-07-09] MEDS: CLOPIDOGREL 75 MG TAB PO (08:17)
[2017-07-09] MEDS: DOCUSATE SODIUM 100 MG CAP PO ×2 (08:17→21:16)
[2017-07-09] MEDS: CitaloPRAM (CeleXA) 20 MG TAB PO (08:17)
[2017-07-09] MEDS: FLUDROCORTISONE ACETATE 0.1 MG TAB PO (08:17)
[2017-07-09] MEDS: PANTOPRAZOLE 40MG TAB (PROTONIX) PO (08:18)
[2017-07-09] MEDS: predniSONE 5 MG TAB PO (08:18)
[2017-07-09] MEDS: cloNIDine 0.1 MG TAB PO ×3 (08:18→21:00)
[2017-07-09] MEDS: LATANOPROST 0.005% OPHTH SOLN 2.5 ML OU ×2 (08:20→21:15)
[2017-07-09] MEDS: COSOPT OCUMETER PLUS 10ML (DORZOLAMIDE/TIMOLOL) OU ×2 (08:21→21:15)
[2017-07-09 12:14] LABS: BEDSIDE GLUCOSE 322 MG/DL (70-105)
[2017-07-09] MEDS: ONDANSETRON 4MG/2ML VIAL (J2405) IV (16:45)
[2017-07-09] MEDS: MORPHINE 4 MG/ML 1ML VIAL/SYRINGE (J2270) IV (16:45)
[2017-07-09 17:47] LABS: BEDSIDE GLUCOSE 323 MG/DL (70-105)
[2017-07-10] MEDS: HumaLOG INSULIN (NovoLOG) PER UNIT SC ×5 (00:21→21:04)
[2017-07-10 00:24] LABS: BEDSIDE GLUCOSE 385 MG/DL (70-105)
[2017-07-10] MEDS: PIPERACILLIN/TAZOBACTAM SOD 3.375 GM in APPROPRIATE DILUENT 1 EA IV ×4 (02:19→21:05)
[2017-07-10] MEDS: ONDANSETRON 4MG/2ML VIAL (J2405) IV ×2 (03:16→13:10)
[2017-07-10] MEDS: NORCO, ANEXSIA 5/325MG TABLET (HYDROcodone/ACETAMINOPHEN) PO ×4 (05:00→21:08)
[2017-07-10] MEDS: SODIUM CHLORIDE 0.9% INJ 10 ML SYR IV ×2 (06:36→18:32)
[2017-07-10 07:49] LABS: BEDSIDE GLUCOSE 273 MG/DL (70-105)
[2017-07-10] MEDS: DOCUSATE SODIUM 100 MG CAP PO ×2 (09:20→21:04)
[2017-07-10] MEDS: predniSONE 5 MG TAB PO (09:20)
[2017-07-10] MEDS: CitaloPRAM (CeleXA) 20 MG TAB PO (09:20)
[2017-07-10] MEDS: cloNIDine 0.1 MG TAB PO ×3 (09:20→21:05)
[2017-07-10] MEDS: FERROUS SULFATE 325MG TAB PO ×2 (09:21→21:05)
[2017-07-10] MEDS: METOPROLOL TART 12.5 MG PER 1/2 TAB PO ×2 (09:21→21:05)
[2017-07-10] MEDS: FLUDROCORTISONE ACETATE 0.1 MG TAB PO (09:21)
[2017-07-10] MEDS: PANTOPRAZOLE 40MG TAB (PROTONIX) PO (09:21)
[2017-07-10] MEDS: ASPIRIN 81 MG ENTERIC TAB PO (09:21)
[2017-07-10] MEDS: ATORVASTATIN 20 MG TAB PO (09:21)
[2017-07-10] MEDS: SENOKOT S TAB PO ×2 (09:22→21:04)
[2017-07-10] MEDS: COSOPT OCUMETER PLUS 10ML (DORZOLAMIDE/TIMOLOL) OU ×2 (09:22→21:06)
[2017-07-10] MEDS: BISACODYL 10 MG SUPP PR (09:54)
[2017-07-10 12:09] LABS: BEDSIDE GLUCOSE 266 MG/DL (70-105)
[2017-07-10] MEDS: NS 1,000 ML IV (13:10)
[2017-07-10] MEDS: CLOPIDOGREL 75 MG TAB PO (14:10)
[2017-07-10] MEDS: HEPARIN SOD (PORCINE) 5000 UNITS/ML VIAL SQ ×2 (14:11→21:04)
[2017-07-10] MEDS: MORPHINE 4 MG/ML 1ML VIAL/SYRINGE (J2270) IV (16:24)
[2017-07-10 16:59] LABS: BEDSIDE GLUCOSE 407 MG/DL (70-105)
[2017-07-10] MEDS: LATANOPROST 0.005% OPHTH SOLN 2.5 ML OU (21:05)
[2017-07-10 21:40] LABS: BEDSIDE GLUCOSE 311 MG/DL (70-105)
[2017-07-11] MEDS: ONDANSETRON 4MG/2ML VIAL (J2405) IV (02:26)
[2017-07-11] MEDS: PIPERACILLIN/TAZOBACTAM SOD 3.375 GM in APPROPRIATE DILUENT 1 EA IV ×4 (02:26→20:17)
[2017-07-11] MEDS: SODIUM CHLORIDE 0.9% INJ 10 ML SYR IV ×2 (06:03→17:17)
[2017-07-11 06:24] LABS: HEMATOCRIT 27.2 % (42.0-52.0); HEMOGLOBIN 8.7 g/dl (13.5-17.5); MEAN CORPUSCULAR HEMOGLOBIN 27.4 pg (27.0-33.0); MEAN CORPUSCULAR VOLUME 85.5 fl (80.0-96.0); PLATELET COUNT, AUTOMATED 622 10^3/uL (150-450); RED BLOOD COUNT 3.18 10^6/uL (4.30-6.10); RED CELL DISTRIBUTION WIDTH 14.5 % (11.5-14.5); WHITE BLOOD COUNT 9.2 10^3/uL (4.0-10.0)
[2017-07-11 06:41] LABS: ALBUMIN/GLOBULIN RATIO 0.44 (1.00-1.93); ALKALINE PHOSPHATASE 304 U/L (45-117); ALT/SGPT 29 U/L (12-78); ANION GAP 9 MEQ/L (8-16); AST/SGOT 19 U/L (7-37); BILIRUBIN,DIRECT 0.2 MG/DL (0.0-0.2); BILIRUBIN,TOTAL 0.5 MG/DL (0.2-1.0); BLOOD UREA NITROGEN 9 MG/DL (7-18); CALCIUM LEVEL 8.2 MG/DL (8.5-10.1); CARBON DIOXIDE LEVEL 26 MEQ/L (21-32); CHLORIDE LEVEL 99 MEQ/L (98-107); CREATININE FOR GFR 1.06 MG/DL (0.70-1.30); GLOMERULAR FILTRATION RATE > 60.0 (>56); GLUCOSE, FASTING 326 MG/DL (70-100); MAGNESIUM LEVEL 1.8 MG/DL (1.8-2.4); POTASSIUM SERUM 4.1 MEQ/L (3.5-5.1); SODIUM LEVEL 134 MEQ/L (136-145); TOTAL PROTEIN 6.5 GM/DL (6.4-8.2)
[2017-07-11] MEDS: HumaLOG INSULIN (NovoLOG) PER UNIT SC ×5 (08:33→23:11)
[2017-07-11] MEDS: PROCHLORPERAZINE 10 MG/2 ML VIAL (J0780) IV (08:33)
[2017-07-11] MEDS: NS 1,000 ML IV ×2 (08:33→12:42)
[2017-07-11] MEDS: MOM 30ML SUSPENSION UDC PO (09:36)
[2017-07-11] MEDS: HEPARIN SOD (PORCINE) 5000 UNITS/ML VIAL SQ ×2 (09:36→20:16)
[2017-07-11] MEDS: CitaloPRAM (CeleXA) 20 MG TAB PO (09:37)
[2017-07-11] MEDS: METOPROLOL TART 12.5 MG PER 1/2 TAB PO ×2 (09:37→20:17)
[2017-07-11] MEDS: DOCUSATE SODIUM 100 MG CAP PO ×2 (09:37→20:16)
[2017-07-11] MEDS: ATORVASTATIN 20 MG TAB PO (09:37)
[2017-07-11] MEDS: FERROUS SULFATE 325MG TAB PO ×2 (09:37→20:17)
[2017-07-11] MEDS: FLUDROCORTISONE ACETATE 0.1 MG TAB PO (09:37)
[2017-07-11] MEDS: predniSONE 5 MG TAB PO (09:38)
[2017-07-11] MEDS: COSOPT OCUMETER PLUS 10ML (DORZOLAMIDE/TIMOLOL) OU ×2 (09:38→20:18)
[2017-07-11] MEDS: PANTOPRAZOLE 40MG TAB (PROTONIX) PO (09:38)
[2017-07-11] MEDS: SENOKOT S TAB PO ×2 (09:38→20:16)
[2017-07-11] MEDS: CLOPIDOGREL 75 MG TAB PO (09:38)
[2017-07-11] MEDS: cloNIDine 0.1 MG TAB PO ×3 (09:38→20:17)
[2017-07-11] MEDS: ASPIRIN 81 MG ENTERIC TAB PO (09:38)
[2017-07-11] MEDS ORDERED: FLEET ENEMA PR (10:30)
[2017-07-11 12:25] LABS: BEDSIDE GLUCOSE 312 MG/DL (70-105)
[2017-07-11] MEDS: NORCO, ANEXSIA 5/325MG TABLET (HYDROcodone/ACETAMINOPHEN) PO ×2 (15:30→20:16)
[2017-07-11] MEDS ORDERED: MIDAZOLAM INJ 2 MG/2 ML VIAL (J2250) As Ordered (17:16)
[2017-07-11] MEDS ORDERED: LIDOCAINE 2% INJ 100 MG/5 ML SDV (FOR ANES.) As Ordered (17:16)
[2017-07-11] MEDS ORDERED: fentaNYL 100 MCG/2 ML INJECTION (J3010) As Ordered (17:16)
[2017-07-11] MEDS ORDERED: PROPOFOL 200 MG/20 ML VIAL As Ordered (17:16)
[2017-07-11] MEDS ORDERED: METOCLOPRAMIDE INJ 10MG/2ML VIAL (J2765) As Ordered (17:28)
[2017-07-11] MEDS ORDERED: ONDANSETRON 4MG/2ML VIAL (J2405) As Ordered (17:28)
[2017-07-11] MEDS: LIDOCAINE 1% SDV INJ 30 ML VIAL As Ordered (17:39)
[2017-07-11] MEDS: BUPIVACAINE HCL 0.5% 30 ML VIAL As Ordered (17:39)
[2017-07-11] MEDS ORDERED: HumaLOG INSULIN (NovoLOG) PER UNIT As Ordered (17:53)
[2017-07-11] MEDS ORDERED: fentaNYL 100 MCG/2 ML INJECTION (J3010) IV (18:00)
[2017-07-11] MEDS ORDERED: MEPERIDINE INJ 25 MG/ML VIAL (J2175) IV (18:00)
[2017-07-11] MEDS ORDERED: PERCOCET 5MG/325MG TAB PO (18:00)
[2017-07-11] MEDS ORDERED: ONDANSETRON 4MG/2ML VIAL (J2405) IV (18:00)
[2017-07-11] MEDS ORDERED: LR 1,000 ML IV (18:00)
[2017-07-11] MEDS ORDERED: METOCLOPRAMIDE INJ 10MG/2ML VIAL (J2765) IV (18:00)
[2017-07-11 19:17] LABS: BEDSIDE GLUCOSE 324 MG/DL (70-105)
[2017-07-11] MEDS: LATANOPROST 0.005% OPHTH SOLN 2.5 ML OU (20:18)
[2017-07-11] MEDS: LEVEMIR (INSULIN DETEMIR) 1 UNITS/0.01ML SC (20:18)
[2017-07-11 23:18] LABS: BEDSIDE GLUCOSE 233 MG/DL (70-105)
[2017-07-12] MEDS: PIPERACILLIN/TAZOBACTAM SOD 3.375 GM in APPROPRIATE DILUENT 1 EA IV ×4 (02:39→20:58)
[2017-07-12] MEDS: NORCO, ANEXSIA 5/325MG TABLET (HYDROcodone/ACETAMINOPHEN) PO ×5 (03:40→20:56)
[2017-07-12 05:18] LABS: BEDSIDE GLUCOSE 145 MG/DL (70-105)
[2017-07-12] MEDS: MORPHINE 4 MG/ML 1ML VIAL/SYRINGE (J2270) IV (05:24)
[2017-07-12] MEDS: ONDANSETRON 4MG/2ML VIAL (J2405) IV ×2 (05:24→21:00)
[2017-07-12] MEDS: HumaLOG INSULIN (NovoLOG) PER UNIT SC ×5 (05:29→20:58)
[2017-07-12] MEDS: SODIUM CHLORIDE 0.9% INJ 10 ML SYR IV ×2 (05:29→17:54)
[2017-07-12 06:41] LABS: HEMOGLOBIN 8.3 g/dl (13.5-17.5); MEAN CORPUSCULAR HEMOGLOBIN 27.8 pg (27.0-33.0); MEAN CORPUSCULAR HGB CONC 31.9 g/dl (32.0-36.5); PLATELET COUNT, AUTOMATED 537 10^3/uL (150-450); RED BLOOD COUNT 2.99 10^6/uL (4.30-6.10); RED CELL DISTRIBUTION WIDTH 14.7 % (11.5-14.5); WHITE BLOOD COUNT 6.2 10^3/uL (4.0-10.0)
[2017-07-12 06:56] LABS: ANION GAP 6 MEQ/L (8-16); BLOOD UREA NITROGEN 9 MG/DL (7-18); CALCIUM LEVEL 8.2 MG/DL (8.5-10.1); CARBON DIOXIDE LEVEL 30 MEQ/L (21-32); CHLORIDE LEVEL 102 MEQ/L (98-107); GLOMERULAR FILTRATION RATE > 60.0 (>56); GLUCOSE, FASTING 138 MG/DL (70-100); POTASSIUM SERUM 3.5 MEQ/L (3.5-5.1); SODIUM LEVEL 138 MEQ/L (136-145)
[2017-07-12] MEDS: DOCUSATE SODIUM 100 MG CAP PO ×2 (08:15→20:57)
[2017-07-12] MEDS: METOPROLOL TART 12.5 MG PER 1/2 TAB PO ×3 (08:16→20:58)
[2017-07-12] MEDS: ATORVASTATIN 20 MG TAB PO (08:16)
[2017-07-12] MEDS: CLOPIDOGREL 75 MG TAB PO (08:16)
[2017-07-12] MEDS: CitaloPRAM (CeleXA) 20 MG TAB PO (08:16)
[2017-07-12] MEDS: predniSONE 5 MG TAB PO (08:17)
[2017-07-12] MEDS: cloNIDine 0.1 MG TAB PO ×3 (08:17→20:57)
[2017-07-12] MEDS: FERROUS SULFATE 325MG TAB PO ×2 (08:17→20:57)
[2017-07-12] MEDS: PANTOPRAZOLE 40MG TAB (PROTONIX) PO (08:17)
[2017-07-12] MEDS: FLUDROCORTISONE ACETATE 0.1 MG TAB PO (08:17)
[2017-07-12] MEDS: SENOKOT S TAB PO ×2 (08:17→20:57)
[2017-07-12] MEDS: ASPIRIN 81 MG ENTERIC TAB PO (08:17)
[2017-07-12] MEDS: COSOPT OCUMETER PLUS 10ML (DORZOLAMIDE/TIMOLOL) OU ×2 (08:30→21:00)
[2017-07-12] MEDS: HEPARIN SOD (PORCINE) 5000 UNITS/ML VIAL SQ ×2 (09:45→20:59)
[2017-07-12 12:21] LABS: BEDSIDE GLUCOSE 242 MG/DL (70-105)
[2017-07-12 17:25] LABS: BEDSIDE GLUCOSE 283 MG/DL (70-105)
[2017-07-12] MEDS: LEVEMIR (INSULIN DETEMIR) 1 UNITS/0.01ML SC (20:59)
[2017-07-12] MEDS: LATANOPROST 0.005% OPHTH SOLN 2.5 ML OU (21:00)
[2017-07-12 21:10] LABS: BEDSIDE GLUCOSE 267 MG/DL (70-105)
[2017-07-13] MEDS: PIPERACILLIN/TAZOBACTAM SOD 3.375 GM in APPROPRIATE DILUENT 1 EA IV ×4 (03:03→21:45)
[2017-07-13 05:26] LABS: BEDSIDE GLUCOSE 249 MG/DL (70-105)
[2017-07-13] MEDS: NORCO, ANEXSIA 5/325MG TABLET (HYDROcodone/ACETAMINOPHEN) PO ×3 (05:43→23:30)
[2017-07-13] MEDS: ONDANSETRON 4MG/2ML VIAL (J2405) IV (05:43)
[2017-07-13] MEDS: SODIUM CHLORIDE 0.9% INJ 10 ML SYR IV ×3 (05:44→23:29)
[2017-07-13 06:57] LABS: HEMATOCRIT 30.3 % (42.0-52.0); HEMOGLOBIN 9.8 g/dl (13.5-17.5); MEAN CORPUSCULAR HEMOGLOBIN 27.5 pg (27.0-33.0); MEAN CORPUSCULAR HGB CONC 32.3 g/dl (32.0-36.5); MEAN CORPUSCULAR VOLUME 85.1 fl (80.0-96.0); PLATELET COUNT, AUTOMATED 542 10^3/uL (150-450); RED BLOOD COUNT 3.56 10^6/uL (4.30-6.10); RED CELL DISTRIBUTION WIDTH 14.6 % (11.5-14.5); WHITE BLOOD COUNT 7.4 10^3/uL (4.0-10.0)
[2017-07-13 07:22] LABS: ANION GAP 8 MEQ/L (8-16); BLOOD UREA NITROGEN 9 MG/DL (7-18); CALCIUM LEVEL 8.6 MG/DL (8.5-10.1); CARBON DIOXIDE LEVEL 31 MEQ/L (21-32); CHLORIDE LEVEL 95 MEQ/L (98-107); GLOMERULAR FILTRATION RATE > 60.0 (>56); GLUCOSE, FASTING 252 MG/DL (70-100); MAGNESIUM LEVEL 1.8 MG/DL (1.8-2.4); SODIUM LEVEL 134 MEQ/L (136-145)
[2017-07-13] MEDS: HumaLOG INSULIN (NovoLOG) PER UNIT SC ×4 (08:19→21:47)
[2017-07-13] MEDS: MORPHINE 4 MG/ML 1ML VIAL/SYRINGE (J2270) IV (08:19)
[2017-07-13] MEDS: METOPROLOL TART 12.5 MG PER 1/2 TAB PO ×2 (09:00→21:48)
[2017-07-13] MEDS: cloNIDine 0.1 MG TAB PO ×3 (10:39→21:50)
[2017-07-13] MEDS: CitaloPRAM (CeleXA) 20 MG TAB PO (10:40)
[2017-07-13] MEDS: ACETAMINOPHEN TAB 650MG DOSE (2X325MG) PO (10:41)
[2017-07-13] MEDS: DOCUSATE SODIUM 100 MG CAP PO ×2 (10:42→21:49)
[2017-07-13] MEDS: FERROUS SULFATE 325MG TAB PO ×2 (10:42→21:48)
[2017-07-13] MEDS: predniSONE 5 MG TAB PO (10:42)
[2017-07-13] MEDS: CLOPIDOGREL 75 MG TAB PO (10:43)
[2017-07-13] MEDS: SENOKOT S TAB PO ×2 (10:43→21:48)
[2017-07-13] MEDS: ASPIRIN 81 MG ENTERIC TAB PO (10:43)
[2017-07-13] MEDS: ATORVASTATIN 20 MG TAB PO (10:43)
[2017-07-13] MEDS: PANTOPRAZOLE 40MG TAB (PROTONIX) PO (10:43)
[2017-07-13] MEDS: COSOPT OCUMETER PLUS 10ML (DORZOLAMIDE/TIMOLOL) OU ×2 (10:44→21:50)
[2017-07-13] MEDS: HEPARIN SOD (PORCINE) 5000 UNITS/ML VIAL SQ ×2 (10:45→21:46)
[2017-07-13] MEDS: FLUDROCORTISONE ACETATE 0.1 MG TAB PO (10:45)
[2017-07-13 11:40] LABS: BEDSIDE GLUCOSE 234 MG/DL (70-105)
[2017-07-13 16:58] LABS: BEDSIDE GLUCOSE 348 MG/DL (70-105)
[2017-07-13 20:40] LABS: BEDSIDE GLUCOSE 464 MG/DL (70-105)
[2017-07-13] MEDS: LEVEMIR (INSULIN DETEMIR) 1 UNITS/0.01ML SC ×2 (21:00→21:46)
[2017-07-13] MEDS: LATANOPROST 0.005% OPHTH SOLN 2.5 ML OU (21:50)
[2017-07-14] MEDS: PIPERACILLIN/TAZOBACTAM SOD 3.375 GM in APPROPRIATE DILUENT 1 EA IV ×4 (02:12→21:13)
[2017-07-14] MEDS: SODIUM CHLORIDE 0.9% INJ 10 ML SYR IV ×4 (02:46→21:21)
[2017-07-14] MEDS: NORCO, ANEXSIA 5/325MG TABLET (HYDROcodone/ACETAMINOPHEN) PO ×3 (05:46→20:10)
[2017-07-14 06:29] LABS: HEMATOCRIT 30.1 % (42.0-52.0); HEMOGLOBIN 9.9 g/dl (13.5-17.5); MEAN CORPUSCULAR HEMOGLOBIN 28.2 pg (27.0-33.0); MEAN CORPUSCULAR HGB CONC 32.9 g/dl (32.0-36.5); MEAN CORPUSCULAR VOLUME 85.8 fl (80.0-96.0); PLATELET COUNT, AUTOMATED 455 10^3/uL (150-450); RED BLOOD COUNT 3.51 10^6/uL (4.30-6.10); RED CELL DISTRIBUTION WIDTH 14.7 % (11.5-14.5); WHITE BLOOD COUNT 6.4 10^3/uL (4.0-10.0)
[2017-07-14 06:51] LABS: ANION GAP 8 MEQ/L (8-16); BLOOD UREA NITROGEN 15 MG/DL (7-18); C REACTIVE PROTEIN QUANTITATIV 9.82 MG/DL (0.00-0.30); CALCIUM LEVEL 8.3 MG/DL (8.5-10.1); CARBON DIOXIDE LEVEL 28 MEQ/L (21-32); CHLORIDE LEVEL 94 MEQ/L (98-107); CREATININE FOR GFR 1.14 MG/DL (0.70-1.30); GLOMERULAR FILTRATION RATE > 60.0 (>56); GLUCOSE, FASTING 358 MG/DL (70-100); SODIUM LEVEL 130 MEQ/L (136-145)
[2017-07-14] MEDS ORDERED: LEVEMIR (INSULIN DETEMIR) 1 UNITS/0.01ML SC ×4 (08:30→21:00)
[2017-07-14] MEDS: ONDANSETRON 4MG/2ML VIAL (J2405) IV (08:58)
[2017-07-14] MEDS: HEPARIN SOD (PORCINE) 5000 UNITS/ML VIAL SQ ×2 (09:02→21:13)
[2017-07-14] MEDS: COSOPT OCUMETER PLUS 10ML (DORZOLAMIDE/TIMOLOL) OU ×2 (09:03→21:21)
[2017-07-14] MEDS: LEVEMIR (INSULIN DETEMIR) 1 UNITS/0.01ML SC (09:03)
[2017-07-14] MEDS: CitaloPRAM (CeleXA) 20 MG TAB PO (09:03)
[2017-07-14] MEDS: SENOKOT S TAB PO ×2 (09:03→21:00)
[2017-07-14] MEDS: cloNIDine 0.1 MG TAB PO (09:03)
[2017-07-14] MEDS: CLOPIDOGREL 75 MG TAB PO (09:04)
[2017-07-14] MEDS: PANTOPRAZOLE 40MG TAB (PROTONIX) PO (09:04)
[2017-07-14] MEDS: FLUDROCORTISONE ACETATE 0.1 MG TAB PO (09:04)
[2017-07-14] MEDS: ATORVASTATIN 20 MG TAB PO (09:04)
[2017-07-14] MEDS: ASPIRIN 81 MG ENTERIC TAB PO (09:04)
[2017-07-14] MEDS: predniSONE 5 MG TAB PO (09:04)
[2017-07-14] MEDS: METOPROLOL TART 12.5 MG PER 1/2 TAB PO ×2 (09:04→21:00)
[2017-07-14] MEDS: DOCUSATE SODIUM 100 MG CAP PO ×2 (09:04→21:15)
[2017-07-14] MEDS: FERROUS SULFATE 325MG TAB PO ×2 (09:05→21:15)
[2017-07-14 11:53] LABS: BEDSIDE GLUCOSE 492 MG/DL (70-105)
[2017-07-14] MEDS: HumaLOG INSULIN (NovoLOG) PER UNIT SC ×3 (12:54→21:14)
[2017-07-14 17:07] LABS: BEDSIDE GLUCOSE 420 MG/DL (70-105)
[2017-07-14 21:04] LABS: BEDSIDE GLUCOSE 321 MG/DL (70-105)
[2017-07-14] MEDS: cloNIDine 0.2 MG TAB PO (21:16)
[2017-07-14] MEDS: LATANOPROST 0.005% OPHTH SOLN 2.5 ML OU (21:21)
[2017-07-15] MEDS: ONDANSETRON 4MG/2ML VIAL (J2405) IV ×2 (00:52→08:31)
[2017-07-15] MEDS: PIPERACILLIN/TAZOBACTAM SOD 3.375 GM in APPROPRIATE DILUENT 1 EA IV ×4 (00:52→20:20)
[2017-07-15] MEDS: SODIUM CHLORIDE 0.9% INJ 10 ML SYR IV ×3 (00:53→17:27)
[2017-07-15 06:16] LABS: HEMATOCRIT 30.8 % (42.0-52.0); MEAN CORPUSCULAR HGB CONC 32.5 g/dl (32.0-36.5); MEAN CORPUSCULAR VOLUME 83.2 fl (80.0-96.0); PLATELET COUNT, AUTOMATED 430 10^3/uL (150-450); RED CELL DISTRIBUTION WIDTH 14.4 % (11.5-14.5); WHITE BLOOD COUNT 6.6 10^3/uL (4.0-10.0)
[2017-07-15 06:34] LABS: ANION GAP 8 MEQ/L (8-16); BLOOD UREA NITROGEN 14 MG/DL (7-18); C REACTIVE PROTEIN QUANTITATIV 9.69 MG/DL (0.00-0.30); CALCIUM LEVEL 8.5 MG/DL (8.5-10.1); CARBON DIOXIDE LEVEL 30 MEQ/L (21-32); CHLORIDE LEVEL 95 MEQ/L (98-107); CREATININE FOR GFR 0.97 MG/DL (0.70-1.30); GLOMERULAR FILTRATION RATE > 60.0 (>56); GLUCOSE, FASTING 244 MG/DL (70-100); MAGNESIUM LEVEL 1.9 MG/DL (1.8-2.4); POTASSIUM SERUM 3.5 MEQ/L (3.5-5.1); SODIUM LEVEL 133 MEQ/L (136-145)
[2017-07-15] MEDS: METOCLOPRAMIDE 5 MG TAB PO ×3 (07:30→17:24)
[2017-07-15] MEDS: HumaLOG INSULIN (NovoLOG) PER UNIT SC ×4 (07:35→20:22)
[2017-07-15] MEDS: LEVEMIR (INSULIN DETEMIR) 1 UNITS/0.01ML SC (07:36)
[2017-07-15] MEDS: HEPARIN SOD (PORCINE) 5000 UNITS/ML VIAL SQ ×2 (07:37→20:20)
[2017-07-15] MEDS: CitaloPRAM (CeleXA) 20 MG TAB PO (07:42)
[2017-07-15] MEDS: cloNIDine 0.2 MG TAB PO ×2 (07:42→20:21)
[2017-07-15] MEDS: ASPIRIN 81 MG ENTERIC TAB PO (07:43)
[2017-07-15] MEDS: FERROUS SULFATE 325MG TAB PO ×2 (07:43→20:21)
[2017-07-15] MEDS: predniSONE 5 MG TAB PO (07:43)
[2017-07-15] MEDS: DOCUSATE SODIUM 100 MG CAP PO ×2 (07:43→20:21)
[2017-07-15] MEDS: ATORVASTATIN 20 MG TAB PO (07:44)
[2017-07-15] MEDS: FLUDROCORTISONE ACETATE 0.1 MG TAB PO (07:44)
[2017-07-15] MEDS: METOPROLOL TART 12.5 MG PER 1/2 TAB PO ×2 (07:47→20:21)
[2017-07-15] MEDS: CLOPIDOGREL 75 MG TAB PO (07:47)
[2017-07-15] MEDS: PANTOPRAZOLE 40MG TAB (PROTONIX) PO (07:47)
[2017-07-15] MEDS: SENOKOT S TAB PO ×2 (07:47→20:21)
[2017-07-15] MEDS: COSOPT OCUMETER PLUS 10ML (DORZOLAMIDE/TIMOLOL) OU ×2 (07:51→20:22)
[2017-07-15] MEDS: POTASSIUM CHLORIDE 10 MEQ SR TABLET PO (11:27)
[2017-07-15 11:59] LABS: BEDSIDE GLUCOSE 247 MG/DL (70-105)
[2017-07-15 16:45] LABS: BEDSIDE GLUCOSE 197 MG/DL (70-105)
[2017-07-15] MEDS: NORCO, ANEXSIA 5/325MG TABLET (HYDROcodone/ACETAMINOPHEN) PO (17:24)
[2017-07-15 20:17] LABS: BEDSIDE GLUCOSE 178 MG/DL (70-105)
[2017-07-15] MEDS: LATANOPROST 0.005% OPHTH SOLN 2.5 ML OU (20:22)
[2017-07-16] MEDS: PIPERACILLIN/TAZOBACTAM SOD 3.375 GM in APPROPRIATE DILUENT 1 EA IV ×4 (02:15→20:54)
[2017-07-16] MEDS: NORCO, ANEXSIA 5/325MG TABLET (HYDROcodone/ACETAMINOPHEN) PO ×3 (06:05→21:03)
[2017-07-16] MEDS: SODIUM CHLORIDE 0.9% INJ 10 ML SYR IV ×2 (06:05→18:17)
[2017-07-16 06:14] LABS: HEMATOCRIT 31.2 % (42.0-52.0); HEMOGLOBIN 10.1 g/dl (13.5-17.5); MEAN CORPUSCULAR HEMOGLOBIN 27.7 pg (27.0-33.0); MEAN CORPUSCULAR HGB CONC 32.4 g/dl (32.0-36.5); MEAN CORPUSCULAR VOLUME 85.5 fl (80.0-96.0); PLATELET COUNT, AUTOMATED 352 10^3/uL (150-450); RED BLOOD COUNT 3.65 10^6/uL (4.30-6.10); RED CELL DISTRIBUTION WIDTH 14.6 % (11.5-14.5); WHITE BLOOD COUNT 6.1 10^3/uL (4.0-10.0)
[2017-07-16 06:35] LABS: ANION GAP 7 MEQ/L (8-16); BLOOD UREA NITROGEN 10 MG/DL (7-18); C REACTIVE PROTEIN QUANTITATIV 8.31 MG/DL (0.00-0.30); CALCIUM LEVEL 8.8 MG/DL (8.5-10.1); CARBON DIOXIDE LEVEL 30 MEQ/L (21-32); CHLORIDE LEVEL 97 MEQ/L (98-107); CREATININE FOR GFR 1.04 MG/DL (0.70-1.30); GLOMERULAR FILTRATION RATE > 60.0 (>56); GLUCOSE, FASTING 236 MG/DL (70-100); POTASSIUM SERUM 3.8 MEQ/L (3.5-5.1); SODIUM LEVEL 134 MEQ/L (136-145)
[2017-07-16] MEDS: LEVEMIR (INSULIN DETEMIR) 1 UNITS/0.01ML SC (08:54)
[2017-07-16] MEDS: DOCUSATE SODIUM 100 MG CAP PO ×2 (08:54→21:03)
[2017-07-16] MEDS: ATORVASTATIN 20 MG TAB PO (08:54)
[2017-07-16] MEDS: predniSONE 5 MG TAB PO (08:55)
[2017-07-16] MEDS: FERROUS SULFATE 325MG TAB PO ×2 (08:55→21:03)
[2017-07-16] MEDS: METOCLOPRAMIDE 5 MG TAB PO ×3 (08:55→18:17)
[2017-07-16] MEDS: PANTOPRAZOLE 40MG TAB (PROTONIX) PO (08:55)
[2017-07-16] MEDS: ASPIRIN 81 MG ENTERIC TAB PO (08:55)
[2017-07-16] MEDS: CitaloPRAM (CeleXA) 20 MG TAB PO (08:56)
[2017-07-16] MEDS: METOPROLOL TART 12.5 MG PER 1/2 TAB PO ×2 (08:56→21:00)
[2017-07-16] MEDS: FLUDROCORTISONE ACETATE 0.1 MG TAB PO (08:57)
[2017-07-16] MEDS: cloNIDine 0.2 MG TAB PO ×2 (08:57→21:00)
[2017-07-16] MEDS: CLOPIDOGREL 75 MG TAB PO (08:58)
[2017-07-16] MEDS: SENOKOT S TAB PO ×2 (08:59→21:03)
[2017-07-16] MEDS: HEPARIN SOD (PORCINE) 5000 UNITS/ML VIAL SQ ×2 (08:59→21:01)
[2017-07-16] MEDS: COSOPT OCUMETER PLUS 10ML (DORZOLAMIDE/TIMOLOL) OU ×2 (08:59→21:04)
[2017-07-16 11:41] LABS: BEDSIDE GLUCOSE 302 MG/DL (70-105)
[2017-07-16] MEDS: LR 1,000 ML IV (11:54)
[2017-07-16 18:41] LABS: BEDSIDE GLUCOSE 269 MG/DL (70-105)
[2017-07-16] MEDS: LATANOPROST 0.005% OPHTH SOLN 2.5 ML OU (21:04)
[2017-07-16 21:40] LABS: BEDSIDE GLUCOSE 351 MG/DL (70-105)
[2017-07-16] MEDS: HumaLOG INSULIN (NovoLOG) PER UNIT SC (21:55)
[2017-07-17] MEDS: PIPERACILLIN/TAZOBACTAM SOD 3.375 GM in APPROPRIATE DILUENT 1 EA IV ×4 (02:45→20:13)
[2017-07-17] MEDS: SODIUM CHLORIDE 0.9% INJ 10 ML SYR IV ×2 (06:17→18:14)
[2017-07-17] MEDS: NORCO, ANEXSIA 5/325MG TABLET (HYDROcodone/ACETAMINOPHEN) PO (06:17)
[2017-07-17 06:44] LABS: HEMATOCRIT 31.4 % (42.0-52.0); HEMOGLOBIN 10.2 g/dl (13.5-17.5); MEAN CORPUSCULAR HEMOGLOBIN 27.6 pg (27.0-33.0); MEAN CORPUSCULAR HGB CONC 32.5 g/dl (32.0-36.5); MEAN CORPUSCULAR VOLUME 84.9 fl (80.0-96.0); PLATELET COUNT, AUTOMATED 335 10^3/uL (150-450); RED CELL DISTRIBUTION WIDTH 14.5 % (11.5-14.5); WHITE BLOOD COUNT 6.1 10^3/uL (4.0-10.0)
[2017-07-17 07:06] LABS: ANION GAP 9 MEQ/L (8-16); BLOOD UREA NITROGEN 12 MG/DL (7-18); CALCIUM LEVEL 8.7 MG/DL (8.5-10.1); CARBON DIOXIDE LEVEL 27 MEQ/L (21-32); CHLORIDE LEVEL 97 MEQ/L (98-107); CREATININE FOR GFR 1.03 MG/DL (0.70-1.30); GLOMERULAR FILTRATION RATE > 60.0 (>56); GLUCOSE, FASTING 239 MG/DL (70-100); MAGNESIUM LEVEL 1.9 MG/DL (1.8-2.4); POTASSIUM SERUM 3.8 MEQ/L (3.5-5.1); SODIUM LEVEL 133 MEQ/L (136-145)
[2017-07-17] MEDS: METOCLOPRAMIDE 5 MG TAB PO ×3 (07:54→18:14)
[2017-07-17] MEDS: HumaLOG INSULIN (NovoLOG) PER UNIT SC ×4 (07:54→20:13)
[2017-07-17] MEDS: MORPHINE 4 MG/ML 1ML VIAL/SYRINGE (J2270) IV ×2 (08:48→14:29)
[2017-07-17] MEDS: METOPROLOL TART 12.5 MG PER 1/2 TAB PO ×2 (09:00→20:12)
[2017-07-17] MEDS: LEVEMIR (INSULIN DETEMIR) 1 UNITS/0.01ML SC (09:16)
[2017-07-17] MEDS: DOCUSATE SODIUM 100 MG CAP PO ×2 (09:17→20:13)
[2017-07-17] MEDS: SENOKOT S TAB PO ×2 (09:17→20:13)
[2017-07-17] MEDS: CLOPIDOGREL 75 MG TAB PO (09:17)
[2017-07-17] MEDS: FLUDROCORTISONE ACETATE 0.1 MG TAB PO (09:17)
[2017-07-17] MEDS: FERROUS SULFATE 325MG TAB PO ×2 (09:17→20:13)
[2017-07-17] MEDS: CitaloPRAM (CeleXA) 20 MG TAB PO (09:17)
[2017-07-17] MEDS: ATORVASTATIN 20 MG TAB PO (09:17)
[2017-07-17] MEDS: cloNIDine 0.2 MG TAB PO ×2 (09:18→20:13)
[2017-07-17] MEDS: PANTOPRAZOLE 40MG TAB (PROTONIX) PO (09:19)
[2017-07-17] MEDS: COSOPT OCUMETER PLUS 10ML (DORZOLAMIDE/TIMOLOL) OU ×2 (09:19→20:14)
[2017-07-17] MEDS: predniSONE 5 MG TAB PO (09:19)
[2017-07-17] MEDS: ASPIRIN 81 MG ENTERIC TAB PO (09:19)
[2017-07-17] MEDS: ONDANSETRON 4MG/2ML VIAL (J2405) IV (10:18)
[2017-07-17] MEDS: HEPARIN SOD (PORCINE) 5000 UNITS/ML VIAL SQ ×2 (10:34→20:11)
[2017-07-17 11:28] LABS: BEDSIDE GLUCOSE 199 MG/DL (70-105)
[2017-07-17] MEDS ORDERED: MIDAZOLAM INJ 2 MG/2 ML VIAL (J2250) As Ordered (15:37)
[2017-07-17] MEDS ORDERED: PROPOFOL 200 MG/20 ML VIAL As Ordered (15:37)
[2017-07-17] MEDS ORDERED: fentaNYL 100 MCG/2 ML INJECTION (J3010) As Ordered (15:38)
[2017-07-17] MEDS ORDERED: LIDOCAINE 2% INJ 100 MG/5 ML SDV (FOR ANES.) As Ordered (16:13)
[2017-07-17] MEDS ORDERED: ROCURONIUM BROMIDE 50 MG/5 ML VIAL As Ordered (16:25)
[2017-07-17] MEDS: LIDOCAINE 1% MDV 20ML VIAL As Ordered (16:39)
[2017-07-17] MEDS: BUPIVACAINE HCL 0.5% 10 ML VIAL As Ordered (16:39)
[2017-07-17 17:10] LABS: BEDSIDE GLUCOSE 199 MG/DL (70-105)
[2017-07-17] MEDS ORDERED: ONDANSETRON 4MG/2ML VIAL (J2405) As Ordered (17:11)
[2017-07-17] MEDS ORDERED: KETOROLAC 60 MG/2 ML VIAL (J1885) As Ordered (17:11)
[2017-07-17] MEDS ORDERED: METOCLOPRAMIDE INJ 10MG/2ML VIAL (J2765) As Ordered (17:11)
[2017-07-17] MEDS ORDERED: ePHEDrine SULFATE 25 MG/5 ML(5MG/ML) SYRINGE (18:57)
[2017-07-17] MEDS: LATANOPROST 0.005% OPHTH SOLN 2.5 ML OU (20:14)
[2017-07-17 20:15] LABS: BEDSIDE GLUCOSE 198 MG/DL (70-105)
[2017-07-18] MEDS: PIPERACILLIN/TAZOBACTAM SOD 3.375 GM in APPROPRIATE DILUENT 1 EA IV ×4 (01:19→21:45)
[2017-07-18] MEDS: NORCO, ANEXSIA 5/325MG TABLET (HYDROcodone/ACETAMINOPHEN) PO ×4 (01:19→21:47)
[2017-07-18] MEDS: SODIUM CHLORIDE 0.9% INJ 10 ML SYR IV ×2 (05:45→18:17)
[2017-07-18 07:00] LABS: HEMATOCRIT 31.4 % (42.0-52.0); HEMOGLOBIN 10.2 g/dl (13.5-17.5); MEAN CORPUSCULAR HEMOGLOBIN 27.7 pg (27.0-33.0); MEAN CORPUSCULAR HGB CONC 32.5 g/dl (32.0-36.5); MEAN CORPUSCULAR VOLUME 85.3 fl (80.0-96.0); PLATELET COUNT, AUTOMATED 281 10^3/uL (150-450); RED BLOOD COUNT 3.68 10^6/uL (4.30-6.10); RED CELL DISTRIBUTION WIDTH 14.5 % (11.5-14.5); WHITE BLOOD COUNT 6.7 10^3/uL (4.0-10.0)
[2017-07-18 07:33] LABS: ANION GAP 8 MEQ/L (8-16); BLOOD UREA NITROGEN 13 MG/DL (7-18); C REACTIVE PROTEIN QUANTITATIV 8.87 MG/DL (0.00-0.30); CALCIUM LEVEL 8.7 MG/DL (8.5-10.1); CARBON DIOXIDE LEVEL 27 MEQ/L (21-32); CHLORIDE LEVEL 102 MEQ/L (98-107); CREATININE FOR GFR 0.98 MG/DL (0.70-1.30); GLOMERULAR FILTRATION RATE > 60.0 (>56); GLUCOSE, FASTING 169 MG/DL (70-100); MAGNESIUM LEVEL 1.8 MG/DL (1.8-2.4); POTASSIUM SERUM 3.4 MEQ/L (3.5-5.1); SODIUM LEVEL 137 MEQ/L (136-145)
[2017-07-18] MEDS: METOPROLOL TART 12.5 MG PER 1/2 TAB PO ×2 (08:38→21:46)
[2017-07-18] MEDS: CitaloPRAM (CeleXA) 20 MG TAB PO (08:38)
[2017-07-18] MEDS: LEVEMIR (INSULIN DETEMIR) 1 UNITS/0.01ML SC (08:39)
[2017-07-18] MEDS: FERROUS SULFATE 325MG TAB PO ×2 (08:39→21:47)
[2017-07-18] MEDS: HumaLOG INSULIN (NovoLOG) PER UNIT SC ×4 (08:39→21:00)
[2017-07-18] MEDS: PANTOPRAZOLE 40MG TAB (PROTONIX) PO (08:39)
[2017-07-18] MEDS: cloNIDine 0.2 MG TAB PO ×2 (08:40→21:46)
[2017-07-18] MEDS: DOCUSATE SODIUM 100 MG CAP PO ×2 (08:40→21:47)
[2017-07-18] MEDS: ASPIRIN 81 MG ENTERIC TAB PO (08:40)
[2017-07-18] MEDS: predniSONE 5 MG TAB PO (08:41)
[2017-07-18] MEDS: METOCLOPRAMIDE 5 MG TAB PO ×3 (08:41→16:55)
[2017-07-18] MEDS: HEPARIN SOD (PORCINE) 5000 UNITS/ML VIAL SQ ×2 (08:41→21:46)
[2017-07-18] MEDS: FLUDROCORTISONE ACETATE 0.1 MG TAB PO (08:41)
[2017-07-18] MEDS: CLOPIDOGREL 75 MG TAB PO (08:41)
[2017-07-18] MEDS: SENOKOT S TAB PO ×2 (08:41→21:47)
[2017-07-18] MEDS: ATORVASTATIN 20 MG TAB PO (08:41)
[2017-07-18] MEDS: COSOPT OCUMETER PLUS 10ML (DORZOLAMIDE/TIMOLOL) OU ×2 (08:42→21:47)
[2017-07-18] MEDS: POTASSIUM CHLORIDE 10 MEQ SR TABLET PO (08:46)
[2017-07-18 11:54] LABS: BEDSIDE GLUCOSE 220 MG/DL (70-105)
[2017-07-18] MEDS ORDERED: ROCURONIUM BROMIDE 50 MG/5 ML VIAL As Ordered (15:42)
[2017-07-18] MEDS ORDERED: MIDAZOLAM INJ 2 MG/2 ML VIAL (J2250) As Ordered (15:42)
[2017-07-18] MEDS ORDERED: dexameTHASONE 4 MG/ML 1ML VIAL (J1100) As Ordered (15:42)
[2017-07-18] MEDS ORDERED: ONDANSETRON 4MG/2ML VIAL (J2405) As Ordered (15:42)
[2017-07-18] MEDS ORDERED: PROPOFOL 200 MG/20 ML VIAL As Ordered (15:42)
[2017-07-18] MEDS ORDERED: NEOSTIGMINE 10 MG/10 ML VIAL (J2710) As Ordered (15:42)
[2017-07-18] MEDS ORDERED: fentaNYL 100 MCG/2 ML INJECTION (J3010) As Ordered (15:42)
[2017-07-18] MEDS ORDERED: LIDOCAINE 2% INJ 100 MG/5 ML SDV (FOR ANES.) As Ordered (15:42)
[2017-07-18] MEDS ORDERED: SUCCINYLCHOLINE 100 MG/5 ML SYRINGE (J0330) As Ordered (15:42)
[2017-07-18] MEDS ORDERED: LIDOCAINE 2% JELLY 30 ML As Ordered (15:42)
[2017-07-18] MEDS ORDERED: GLYCOPYRROLATE INJ 0.2 MG/ML 2 ML VIAL As Ordered (15:42)
[2017-07-18] MEDS ORDERED: KETOROLAC 60 MG/2 ML VIAL (J1885) As Ordered (15:42)
[2017-07-18 17:33] LABS: BEDSIDE GLUCOSE 134 MG/DL (70-105)
[2017-07-18] MEDS: LATANOPROST 0.005% OPHTH SOLN 2.5 ML OU (21:46)
[2017-07-18 22:03] LABS: BEDSIDE GLUCOSE 145 MG/DL (70-105)
[2017-07-19] MEDS: PIPERACILLIN/TAZOBACTAM SOD 3.375 GM in APPROPRIATE DILUENT 1 EA IV ×4 (02:04→21:33)
[2017-07-19] MEDS: NORCO, ANEXSIA 5/325MG TABLET (HYDROcodone/ACETAMINOPHEN) PO ×4 (02:05→22:52)
[2017-07-19] MEDS: SODIUM CHLORIDE 0.9% INJ 10 ML SYR IV ×3 (06:02→18:38)
[2017-07-19 06:56] LABS: HEMATOCRIT 31.2 % (42.0-52.0); MEAN CORPUSCULAR HEMOGLOBIN 27.3 pg (27.0-33.0); MEAN CORPUSCULAR HGB CONC 32.1 g/dl (32.0-36.5); MEAN CORPUSCULAR VOLUME 85.2 fl (80.0-96.0); PLATELET COUNT, AUTOMATED 278 10^3/uL (150-450); RED BLOOD COUNT 3.66 10^6/uL (4.30-6.10); RED CELL DISTRIBUTION WIDTH 14.5 % (11.5-14.5); WHITE BLOOD COUNT 8.2 10^3/uL (4.0-10.0)
[2017-07-19 07:22] LABS: ANION GAP 8 MEQ/L (8-16); BLOOD UREA NITROGEN 11 MG/DL (7-18); C REACTIVE PROTEIN QUANTITATIV 9.67 MG/DL (0.00-0.30); CARBON DIOXIDE LEVEL 25 MEQ/L (21-32); CHLORIDE LEVEL 103 MEQ/L (98-107); CREATININE FOR GFR 0.98 MG/DL (0.70-1.30); GLOMERULAR FILTRATION RATE > 60.0 (>56); GLUCOSE, FASTING 140 MG/DL (70-100); MAGNESIUM LEVEL 1.8 MG/DL (1.8-2.4); POTASSIUM SERUM 3.5 MEQ/L (3.5-5.1); SODIUM LEVEL 136 MEQ/L (136-145)
[2017-07-19] MEDS: METOCLOPRAMIDE 5 MG TAB PO ×3 (07:46→18:37)
[2017-07-19] MEDS: HumaLOG INSULIN (NovoLOG) PER UNIT SC ×4 (07:46→21:34)
[2017-07-19] MEDS: LEVEMIR (INSULIN DETEMIR) 1 UNITS/0.01ML SC (09:00)
[2017-07-19] MEDS: METOPROLOL TART 12.5 MG PER 1/2 TAB PO ×2 (09:00→21:35)
[2017-07-19] MEDS: FERROUS SULFATE 325MG TAB PO ×2 (10:05→21:36)
[2017-07-19] MEDS: FLUDROCORTISONE ACETATE 0.1 MG TAB PO (10:06)
[2017-07-19] MEDS: ACETAMINOPHEN TAB 650MG DOSE (2X325MG) PO (10:06)
[2017-07-19] MEDS: cloNIDine 0.2 MG TAB PO ×2 (10:07→21:36)
[2017-07-19] MEDS: CLOPIDOGREL 75 MG TAB PO (10:07)
[2017-07-19] MEDS: predniSONE 5 MG TAB PO (10:08)
[2017-07-19] MEDS: CitaloPRAM (CeleXA) 20 MG TAB PO (10:08)
[2017-07-19] MEDS: SENOKOT S TAB PO ×2 (10:09→21:36)
[2017-07-19] MEDS: ASPIRIN 81 MG ENTERIC TAB PO (10:09)
[2017-07-19] MEDS: DOCUSATE SODIUM 100 MG CAP PO ×2 (10:09→21:35)
[2017-07-19] MEDS: ATORVASTATIN 20 MG TAB PO (10:10)
[2017-07-19] MEDS: PANTOPRAZOLE 40MG TAB (PROTONIX) PO (10:10)
[2017-07-19] MEDS: HEPARIN SOD (PORCINE) 5000 UNITS/ML VIAL SQ ×2 (10:11→21:34)
[2017-07-19] MEDS: COSOPT OCUMETER PLUS 10ML (DORZOLAMIDE/TIMOLOL) OU ×2 (10:12→21:34)
[2017-07-19 11:53] LABS: BEDSIDE GLUCOSE 151 MG/DL (70-105)
[2017-07-19 17:30] LABS: BEDSIDE GLUCOSE 307 MG/DL (70-105)
[2017-07-19 20:16] LABS: BEDSIDE GLUCOSE 327 MG/DL (70-105)
[2017-07-19] MEDS: LATANOPROST 0.005% OPHTH SOLN 2.5 ML OU (21:34)
[2017-07-20] MEDS: NORCO, ANEXSIA 5/325MG TABLET (HYDROcodone/ACETAMINOPHEN) PO ×2 (02:53→19:02)
[2017-07-20] MEDS: PIPERACILLIN/TAZOBACTAM SOD 3.375 GM in APPROPRIATE DILUENT 1 EA IV ×4 (02:53→21:45)
[2017-07-20] MEDS: SODIUM CHLORIDE 0.9% INJ 10 ML SYR IV ×2 (05:23→18:16)
[2017-07-20 07:13] LABS: HEMATOCRIT 30.3 % (42.0-52.0); HEMOGLOBIN 9.8 g/dl (13.5-17.5); MEAN CORPUSCULAR HEMOGLOBIN 27.2 pg (27.0-33.0); MEAN CORPUSCULAR HGB CONC 32.3 g/dl (32.0-36.5); MEAN CORPUSCULAR VOLUME 84.2 fl (80.0-96.0); PLATELET COUNT, AUTOMATED 313 10^3/uL (150-450); RED CELL DISTRIBUTION WIDTH 14.3 % (11.5-14.5); WHITE BLOOD COUNT 8.9 10^3/uL (4.0-10.0)
[2017-07-20 07:31] LABS: ANION GAP 8 MEQ/L (8-16); BLOOD UREA NITROGEN 15 MG/DL (7-18); CALCIUM LEVEL 8.9 MG/DL (8.5-10.1); CARBON DIOXIDE LEVEL 28 MEQ/L (21-32); CHLORIDE LEVEL 99 MEQ/L (98-107); CREATININE FOR GFR 0.98 MG/DL (0.70-1.30); GLOMERULAR FILTRATION RATE > 60.0 (>56); GLUCOSE, FASTING 347 MG/DL (70-100); POTASSIUM SERUM 4.4 MEQ/L (3.5-5.1); SODIUM LEVEL 135 MEQ/L (136-145)
[2017-07-20] MEDS: MOM 30ML SUSPENSION UDC PO (08:50)
[2017-07-20] MEDS: HEPARIN SOD (PORCINE) 5000 UNITS/ML VIAL SQ ×2 (08:51→21:45)
[2017-07-20] MEDS: HumaLOG INSULIN (NovoLOG) PER UNIT SC ×4 (08:51→21:46)
[2017-07-20] MEDS: FLUDROCORTISONE ACETATE 0.1 MG TAB PO (08:52)
[2017-07-20] MEDS: LEVEMIR (INSULIN DETEMIR) 1 UNITS/0.01ML SC (08:52)
[2017-07-20] MEDS: DOCUSATE SODIUM 100 MG CAP PO ×2 (08:52→21:45)
[2017-07-20] MEDS: CLOPIDOGREL 75 MG TAB PO (08:52)
[2017-07-20] MEDS: ATORVASTATIN 20 MG TAB PO (08:52)
[2017-07-20] MEDS: SENOKOT S TAB PO ×2 (08:52→21:46)
[2017-07-20] MEDS: predniSONE 5 MG TAB PO (08:52)
[2017-07-20] MEDS: ASPIRIN 81 MG ENTERIC TAB PO (08:52)
[2017-07-20] MEDS: cloNIDine 0.2 MG TAB PO ×2 (08:53→21:46)
[2017-07-20] MEDS: METOCLOPRAMIDE 5 MG TAB PO ×3 (08:53→18:16)
[2017-07-20] MEDS: PANTOPRAZOLE 40MG TAB (PROTONIX) PO (08:53)
[2017-07-20] MEDS: FERROUS SULFATE 325MG TAB PO ×2 (08:53→21:45)
[2017-07-20] MEDS: CitaloPRAM (CeleXA) 20 MG TAB PO (08:53)
[2017-07-20] MEDS: COSOPT OCUMETER PLUS 10ML (DORZOLAMIDE/TIMOLOL) OU ×2 (08:53→21:45)
[2017-07-20] MEDS: ONDANSETRON 4MG/2ML VIAL (J2405) IV ×2 (09:43→22:20)
[2017-07-20] MEDS: BISACODYL 10 MG SUPP PR (09:43)
[2017-07-20 12:53] LABS: BEDSIDE GLUCOSE 291 MG/DL (70-105)
[2017-07-20 17:31] LABS: BEDSIDE GLUCOSE 178 MG/DL (70-105)
[2017-07-20 20:26] LABS: BEDSIDE GLUCOSE 145 MG/DL (70-105)
[2017-07-20] MEDS: LATANOPROST 0.005% OPHTH SOLN 2.5 ML OU (21:45)
[2017-07-20] MEDS: MORPHINE 4 MG/ML 1ML VIAL/SYRINGE (J2270) IV (21:52)
[2017-07-21] MEDS: PIPERACILLIN/TAZOBACTAM SOD 3.375 GM in APPROPRIATE DILUENT 1 EA IV ×4 (02:17→20:27)
[2017-07-21] MEDS: SODIUM CHLORIDE 0.9% INJ 10 ML SYR IV ×2 (05:58→17:43)
[2017-07-21 06:24] LABS: HEMATOCRIT 29.9 % (42.0-52.0); HEMOGLOBIN 9.8 g/dl (13.5-17.5); MEAN CORPUSCULAR HEMOGLOBIN 27.9 pg (27.0-33.0); MEAN CORPUSCULAR HGB CONC 32.8 g/dl (32.0-36.5); MEAN CORPUSCULAR VOLUME 85.2 fl (80.0-96.0); PLATELET COUNT, AUTOMATED 318 10^3/uL (150-450); RED BLOOD COUNT 3.51 10^6/uL (4.30-6.10); RED CELL DISTRIBUTION WIDTH 14.6 % (11.5-14.5); WHITE BLOOD COUNT 9.4 10^3/uL (4.0-10.0)
[2017-07-21 06:50] LABS: ANION GAP 8 MEQ/L (8-16); BLOOD UREA NITROGEN 12 MG/DL (7-18); C REACTIVE PROTEIN QUANTITATIV 9.52 MG/DL (0.00-0.30); CALCIUM LEVEL 8.6 MG/DL (8.5-10.1); CARBON DIOXIDE LEVEL 28 MEQ/L (21-32); CHLORIDE LEVEL 102 MEQ/L (98-107); CREATININE FOR GFR 0.95 MG/DL (0.70-1.30); GLOMERULAR FILTRATION RATE > 60.0 (>56); GLUCOSE, FASTING 180 MG/DL (70-100); MAGNESIUM LEVEL 1.9 MG/DL (1.8-2.4); POTASSIUM SERUM 3.8 MEQ/L (3.5-5.1); SODIUM LEVEL 138 MEQ/L (136-145)
[2017-07-21] MEDS: HumaLOG INSULIN (NovoLOG) PER UNIT SC ×4 (08:28→20:28)
[2017-07-21] MEDS: LEVEMIR (INSULIN DETEMIR) 1 UNITS/0.01ML SC (08:29)
[2017-07-21] MEDS: COSOPT OCUMETER PLUS 10ML (DORZOLAMIDE/TIMOLOL) OU ×2 (08:29→20:26)
[2017-07-21] MEDS: FLUDROCORTISONE ACETATE 0.1 MG TAB PO (08:29)
[2017-07-21] MEDS: HEPARIN SOD (PORCINE) 5000 UNITS/ML VIAL SQ ×2 (08:29→20:26)
[2017-07-21] MEDS: SENOKOT S TAB PO ×2 (08:30→20:27)
[2017-07-21] MEDS: ATORVASTATIN 20 MG TAB PO (08:30)
[2017-07-21] MEDS: predniSONE 5 MG TAB PO (08:30)
[2017-07-21] MEDS: DOCUSATE SODIUM 100 MG CAP PO ×2 (08:30→20:27)
[2017-07-21] MEDS: CitaloPRAM (CeleXA) 20 MG TAB PO (08:30)
[2017-07-21] MEDS: METOCLOPRAMIDE 5 MG TAB PO ×3 (08:30→17:42)
[2017-07-21] MEDS: ASPIRIN 81 MG ENTERIC TAB PO (08:30)
[2017-07-21] MEDS: cloNIDine 0.2 MG TAB PO ×2 (08:30→20:27)
[2017-07-21] MEDS: CLOPIDOGREL 75 MG TAB PO (08:30)
[2017-07-21] MEDS: FERROUS SULFATE 325MG TAB PO ×2 (08:30→20:27)
[2017-07-21] MEDS: PANTOPRAZOLE 40MG TAB (PROTONIX) PO (08:31)
[2017-07-21] MEDS: ONDANSETRON 4MG/2ML VIAL (J2405) IV (12:03)
[2017-07-21 12:16] LABS: BEDSIDE GLUCOSE 183 MG/DL (70-105)
[2017-07-21] MEDS: NORCO, ANEXSIA 5/325MG TABLET (HYDROcodone/ACETAMINOPHEN) PO ×2 (14:17→19:41)
[2017-07-21 17:12] LABS: BEDSIDE GLUCOSE 153 MG/DL (70-105)
[2017-07-21] MEDS: LATANOPROST 0.005% OPHTH SOLN 2.5 ML OU (20:26)
[2017-07-21 20:38] LABS: BEDSIDE GLUCOSE 106 MG/DL (70-105)
[2017-07-22] MEDS: NORCO, ANEXSIA 5/325MG TABLET (HYDROcodone/ACETAMINOPHEN) PO ×4 (00:25→17:37)
[2017-07-22] MEDS: PIPERACILLIN/TAZOBACTAM SOD 3.375 GM in APPROPRIATE DILUENT 1 EA IV ×4 (02:21→20:53)
[2017-07-22] MEDS: SODIUM CHLORIDE 0.9% INJ 10 ML SYR IV ×2 (06:14→17:58)
[2017-07-22 06:57] LABS: HEMATOCRIT 29.1 % (42.0-52.0); HEMOGLOBIN 9.4 g/dl (13.5-17.5); MEAN CORPUSCULAR HEMOGLOBIN 27.4 pg (27.0-33.0); MEAN CORPUSCULAR HGB CONC 32.3 g/dl (32.0-36.5); MEAN CORPUSCULAR VOLUME 84.8 fl (80.0-96.0); PLATELET COUNT, AUTOMATED 324 10^3/uL (150-450); RED BLOOD COUNT 3.43 10^6/uL (4.30-6.10); RED CELL DISTRIBUTION WIDTH 14.6 % (11.5-14.5); WHITE BLOOD COUNT 8.1 10^3/uL (4.0-10.0)
[2017-07-22 07:09] LABS: ANION GAP 7 MEQ/L (8-16); BLOOD UREA NITROGEN 10 MG/DL (7-18); C REACTIVE PROTEIN QUANTITATIV 8.42 MG/DL (0.00-0.30); CALCIUM LEVEL 8.5 MG/DL (8.5-10.1); CARBON DIOXIDE LEVEL 27 MEQ/L (21-32); CHLORIDE LEVEL 101 MEQ/L (98-107); CREATININE FOR GFR 0.95 MG/DL (0.70-1.30); GLOMERULAR FILTRATION RATE > 60.0 (>56); GLUCOSE, FASTING 268 MG/DL (70-100); MAGNESIUM LEVEL 1.7 MG/DL (1.8-2.4); POTASSIUM SERUM 3.6 MEQ/L (3.5-5.1); SODIUM LEVEL 135 MEQ/L (136-145)
[2017-07-22] MEDS: LEVEMIR (INSULIN DETEMIR) 1 UNITS/0.01ML SC (08:27)
[2017-07-22] MEDS: HumaLOG INSULIN (NovoLOG) PER UNIT SC ×4 (08:27→20:56)
[2017-07-22] MEDS: DOCUSATE SODIUM 100 MG CAP PO ×2 (08:28→20:53)
[2017-07-22] MEDS: FLUDROCORTISONE ACETATE 0.1 MG TAB PO (08:28)
[2017-07-22] MEDS: SENOKOT S TAB PO ×2 (08:28→20:53)
[2017-07-22] MEDS: ATORVASTATIN 20 MG TAB PO (08:28)
[2017-07-22] MEDS: CitaloPRAM (CeleXA) 20 MG TAB PO (08:28)
[2017-07-22] MEDS: FERROUS SULFATE 325MG TAB PO ×2 (08:28→20:53)
[2017-07-22] MEDS: ASPIRIN 81 MG ENTERIC TAB PO (08:28)
[2017-07-22] MEDS: CLOPIDOGREL 75 MG TAB PO (08:28)
[2017-07-22] MEDS: PANTOPRAZOLE 40MG TAB (PROTONIX) PO (08:28)
[2017-07-22] MEDS: METOCLOPRAMIDE 5 MG TAB PO ×3 (08:28→17:58)
[2017-07-22] MEDS: predniSONE 5 MG TAB PO (08:28)
[2017-07-22] MEDS: HEPARIN SOD (PORCINE) 5000 UNITS/ML VIAL SQ ×2 (08:29→20:55)
[2017-07-22] MEDS: COSOPT OCUMETER PLUS 10ML (DORZOLAMIDE/TIMOLOL) OU ×2 (08:29→20:54)
[2017-07-22] MEDS: cloNIDine 0.2 MG TAB PO ×2 (08:29→20:53)
[2017-07-22 11:42] LABS: BEDSIDE GLUCOSE 267 MG/DL (70-105)
[2017-07-22] MEDS: ACETAMINOPHEN TAB 650MG DOSE (2X325MG) PO (14:23)
[2017-07-22] MEDS: MAG SULF 1GM/100ML (MAG RUN) 1 GM in APPROPRIATE DILUENT 1 EA IV ×2 (14:24→15:59)
[2017-07-22 17:28] LABS: BEDSIDE GLUCOSE 267 MG/DL (70-105)
[2017-07-22] MEDS: LATANOPROST 0.005% OPHTH SOLN 2.5 ML OU (20:54)
[2017-07-22 21:20] LABS: BEDSIDE GLUCOSE 257 MG/DL (70-105)
[2017-07-22] MEDS: ONDANSETRON 4MG/2ML VIAL (J2405) IV (23:07)
[2017-07-23] MEDS: NORCO, ANEXSIA 5/325MG TABLET (HYDROcodone/ACETAMINOPHEN) PO ×5 (01:10→21:02)
[2017-07-23] MEDS: MORPHINE 4 MG/ML 1ML VIAL/SYRINGE (J2270) IV ×2 (02:47→19:44)
[2017-07-23] MEDS: PIPERACILLIN/TAZOBACTAM SOD 3.375 GM in APPROPRIATE DILUENT 1 EA IV ×4 (02:47→21:01)
[2017-07-23] MEDS: SODIUM CHLORIDE 0.9% INJ 10 ML SYR IV ×2 (06:01→17:17)
[2017-07-23 06:40] LABS: HEMATOCRIT 28.7 % (42.0-52.0); HEMOGLOBIN 9.5 g/dl (13.5-17.5); MEAN CORPUSCULAR HEMOGLOBIN 27.5 pg (27.0-33.0); MEAN CORPUSCULAR HGB CONC 33.1 g/dl (32.0-36.5); MEAN CORPUSCULAR VOLUME 83.2 fl (80.0-96.0); PLATELET COUNT, AUTOMATED 352 10^3/uL (150-450); RED BLOOD COUNT 3.45 10^6/uL (4.30-6.10); RED CELL DISTRIBUTION WIDTH 14.5 % (11.5-14.5); WHITE BLOOD COUNT 7.7 10^3/uL (4.0-10.0)
[2017-07-23 08:04] LABS: ANION GAP 8 MEQ/L (8-16); BLOOD UREA NITROGEN 9 MG/DL (7-18); C REACTIVE PROTEIN QUANTITATIV 7.55 MG/DL (0.00-0.30); CALCIUM LEVEL 8.7 MG/DL (8.5-10.1); CARBON DIOXIDE LEVEL 29 MEQ/L (21-32); CHLORIDE LEVEL 102 MEQ/L (98-107); CREATININE FOR GFR 0.93 MG/DL (0.70-1.30); GLOMERULAR FILTRATION RATE > 60.0 (>56); GLUCOSE, FASTING 147 MG/DL (70-100); MAGNESIUM LEVEL 2.1 MG/DL (1.8-2.4); POTASSIUM SERUM 3.4 MEQ/L (3.5-5.1); SODIUM LEVEL 139 MEQ/L (136-145)
[2017-07-23] MEDS: COSOPT OCUMETER PLUS 10ML (DORZOLAMIDE/TIMOLOL) OU ×2 (08:20→21:01)
[2017-07-23] MEDS: DOCUSATE SODIUM 100 MG CAP PO ×2 (08:20→21:02)
[2017-07-23] MEDS: HEPARIN SOD (PORCINE) 5000 UNITS/ML VIAL SQ ×2 (08:20→21:01)
[2017-07-23] MEDS: SENOKOT S TAB PO ×2 (08:21→21:03)
[2017-07-23] MEDS: METOCLOPRAMIDE 5 MG TAB PO ×3 (08:21→17:17)
[2017-07-23] MEDS: CLOPIDOGREL 75 MG TAB PO (08:21)
[2017-07-23] MEDS: CitaloPRAM (CeleXA) 20 MG TAB PO (08:21)
[2017-07-23] MEDS: PANTOPRAZOLE 40MG TAB (PROTONIX) PO (08:21)
[2017-07-23] MEDS: FLUDROCORTISONE ACETATE 0.1 MG TAB PO (08:21)
[2017-07-23] MEDS: FERROUS SULFATE 325MG TAB PO ×2 (08:21→21:02)
[2017-07-23] MEDS: predniSONE 5 MG TAB PO (08:22)
[2017-07-23] MEDS: ATORVASTATIN 20 MG TAB PO (08:22)
[2017-07-23] MEDS: ASPIRIN 81 MG ENTERIC TAB PO (08:22)
[2017-07-23] MEDS: cloNIDine 0.2 MG TAB PO ×2 (08:22→21:03)
[2017-07-23] MEDS: LEVEMIR (INSULIN DETEMIR) 1 UNITS/0.01ML SC (08:23)
[2017-07-23] MEDS: HumaLOG INSULIN (NovoLOG) PER UNIT SC ×4 (08:23→21:00)
[2017-07-23 11:51] LABS: BEDSIDE GLUCOSE 121 MG/DL (70-105)
[2017-07-23] MEDS: POTASSIUM CHLORIDE 10 MEQ SR TABLET PO (12:23)
[2017-07-23 16:50] LABS: BEDSIDE GLUCOSE 133 MG/DL (70-105)
[2017-07-23] MEDS: LATANOPROST 0.005% OPHTH SOLN 2.5 ML OU (21:01)
[2017-07-24] MEDS: PIPERACILLIN/TAZOBACTAM SOD 3.375 GM in APPROPRIATE DILUENT 1 EA IV ×4 (02:28→21:56)
[2017-07-24] MEDS: NORCO, ANEXSIA 5/325MG TABLET (HYDROcodone/ACETAMINOPHEN) PO (06:02)
[2017-07-24] MEDS: SODIUM CHLORIDE 0.9% INJ 10 ML SYR IV ×2 (06:02→17:37)
[2017-07-24 06:55] LABS: HEMOGLOBIN 9.7 g/dl (13.5-17.5); MEAN CORPUSCULAR HEMOGLOBIN 27.6 pg (27.0-33.0); MEAN CORPUSCULAR HGB CONC 32.3 g/dl (32.0-36.5); MEAN CORPUSCULAR VOLUME 85.2 fl (80.0-96.0); PLATELET COUNT, AUTOMATED 353 10^3/uL (150-450); RED BLOOD COUNT 3.52 10^6/uL (4.30-6.10); RED CELL DISTRIBUTION WIDTH 14.9 % (11.5-14.5); WHITE BLOOD COUNT 8.1 10^3/uL (4.0-10.0)
[2017-07-24 07:10] LABS: ANION GAP 7 MEQ/L (8-16); BLOOD UREA NITROGEN 9 MG/DL (7-18); CARBON DIOXIDE LEVEL 28 MEQ/L (21-32); CHLORIDE LEVEL 104 MEQ/L (98-107); CREATININE FOR GFR 0.89 MG/DL (0.70-1.30); GLOMERULAR FILTRATION RATE > 60.0 (>56); GLUCOSE, FASTING 153 MG/DL (70-100); MAGNESIUM LEVEL 2.1 MG/DL (1.8-2.4); POTASSIUM SERUM 3.8 MEQ/L (3.5-5.1); SODIUM LEVEL 139 MEQ/L (136-145)
[2017-07-24] MEDS: HumaLOG INSULIN (NovoLOG) PER UNIT SC ×4 (07:30→23:46)
[2017-07-24] MEDS: METOCLOPRAMIDE 5 MG TAB PO ×3 (07:30→16:13)
[2017-07-24] MEDS: DOCUSATE SODIUM 100 MG CAP PO ×3 (09:00→21:59)
[2017-07-24] MEDS: LEVEMIR (INSULIN DETEMIR) 1 UNITS/0.01ML SC (09:00)
[2017-07-24] MEDS: SENOKOT S TAB PO ×3 (09:00→21:59)
[2017-07-24] MEDS: CitaloPRAM (CeleXA) 20 MG TAB PO (09:43)
[2017-07-24] MEDS: FLUDROCORTISONE ACETATE 0.1 MG TAB PO (09:44)
[2017-07-24] MEDS: cloNIDine 0.2 MG TAB PO ×2 (09:44→21:58)
[2017-07-24] MEDS: ATORVASTATIN 20 MG TAB PO (09:44)
[2017-07-24] MEDS: PANTOPRAZOLE 40MG TAB (PROTONIX) PO (09:44)
[2017-07-24] MEDS: FERROUS SULFATE 325MG TAB PO ×2 (09:45→21:58)
[2017-07-24] MEDS: predniSONE 5 MG TAB PO (09:45)
[2017-07-24] MEDS: COSOPT OCUMETER PLUS 10ML (DORZOLAMIDE/TIMOLOL) OU ×2 (09:46→22:01)
[2017-07-24] MEDS: ASPIRIN 81 MG ENTERIC TAB PO (10:56)
[2017-07-24] MEDS: CLOPIDOGREL 75 MG TAB PO (10:56)
[2017-07-24] MEDS: HEPARIN SOD (PORCINE) 5000 UNITS/ML VIAL SQ ×2 (10:58→21:59)
[2017-07-24] MEDS: ONDANSETRON 4MG/2ML VIAL (J2405) IV (11:17)
[2017-07-24 12:02] LABS: BEDSIDE GLUCOSE 248 MG/DL (70-105)
[2017-07-24 16:24] LABS: BEDSIDE GLUCOSE 326 MG/DL (70-105)
[2017-07-24] MEDS ORDERED: MIDAZOLAM INJ 2 MG/2 ML VIAL (J2250) As Ordered (18:11)
[2017-07-24] MEDS ORDERED: ONDANSETRON 4MG/2ML VIAL (J2405) As Ordered (18:11)
[2017-07-24] MEDS ORDERED: fentaNYL 100 MCG/2 ML INJECTION (J3010) As Ordered ×2 (18:11→20:33)
[2017-07-24] MEDS ORDERED: PROPOFOL 200 MG/20 ML VIAL As Ordered (18:11)
[2017-07-24] MEDS ORDERED: LIDOCAINE 2% INJ 100 MG/5 ML SDV (FOR ANES.) As Ordered (18:11)
[2017-07-24] MEDS ORDERED: ROCURONIUM BROMIDE 50 MG/5 ML VIAL As Ordered (18:11)
[2017-07-24] MEDS ORDERED: HumaLOG INSULIN (NovoLOG) PER UNIT As Ordered (18:12)
[2017-07-24 20:38] LABS: BEDSIDE GLUCOSE 301 MG/DL (70-105)
[2017-07-24] MEDS: fentaNYL 100 MCG/2 ML INJECTION (J3010) IV ×4 (20:40→20:55)
[2017-07-24] MEDS ORDERED: PERCOCET 5MG/325MG TAB As Ordered (20:54)
[2017-07-24] MEDS ORDERED: ONDANSETRON 4MG/2ML VIAL (J2405) IV (21:00)
[2017-07-24] MEDS: LR 1,000 ML IV (21:00)
[2017-07-24] MEDS: PERCOCET 5MG/325MG TAB PO (21:12)
[2017-07-24] MEDS: LATANOPROST 0.005% OPHTH SOLN 2.5 ML OU (22:00)
[2017-07-24 22:19] LABS: BEDSIDE GLUCOSE 252 MG/DL (70-105)
[2017-07-24] MEDS: MORPHINE 4 MG/ML 1ML VIAL/SYRINGE (J2270) IV (23:40)
[2017-07-25] MEDS: PIPERACILLIN/TAZOBACTAM SOD 3.375 GM in APPROPRIATE DILUENT 1 EA IV ×4 (02:58→21:20)
[2017-07-25] MEDS: MORPHINE 4 MG/ML 1ML VIAL/SYRINGE (J2270) IV ×3 (03:03→21:22)
[2017-07-25] MEDS: SODIUM CHLORIDE 0.9% INJ 10 ML SYR IV ×4 (03:34→17:36)
[2017-07-25] MEDS: NORCO, ANEXSIA 5/325MG TABLET (HYDROcodone/ACETAMINOPHEN) PO ×2 (05:27→18:50)
[2017-07-25 05:48] LABS: BEDSIDE GLUCOSE 322 MG/DL (70-105)
[2017-07-25] MEDS: HumaLOG INSULIN (NovoLOG) PER UNIT SC ×4 (08:05→21:00)
[2017-07-25] MEDS: ASPIRIN 81 MG ENTERIC TAB PO (08:06)
[2017-07-25] MEDS: CitaloPRAM (CeleXA) 20 MG TAB PO (08:06)
[2017-07-25] MEDS: DOCUSATE SODIUM 100 MG CAP PO ×2 (08:06→21:20)
[2017-07-25] MEDS: HEPARIN SOD (PORCINE) 5000 UNITS/ML VIAL SQ ×2 (08:06→21:21)
[2017-07-25] MEDS: LEVEMIR (INSULIN DETEMIR) 1 UNITS/0.01ML SC (08:06)
[2017-07-25] MEDS: predniSONE 5 MG TAB PO (08:06)
[2017-07-25] MEDS: ATORVASTATIN 20 MG TAB PO (08:06)
[2017-07-25] MEDS: FERROUS SULFATE 325MG TAB PO ×2 (08:07→21:21)
[2017-07-25] MEDS: PANTOPRAZOLE 40MG TAB (PROTONIX) PO (08:07)
[2017-07-25] MEDS: CLOPIDOGREL 75 MG TAB PO (08:07)
[2017-07-25] MEDS: cloNIDine 0.2 MG TAB PO ×2 (08:07→21:20)
[2017-07-25] MEDS: SENOKOT S TAB PO ×2 (08:07→21:21)
[2017-07-25] MEDS: COSOPT OCUMETER PLUS 10ML (DORZOLAMIDE/TIMOLOL) OU ×2 (08:07→21:21)
[2017-07-25] MEDS: METOCLOPRAMIDE 5 MG TAB PO ×3 (08:07→17:22)
[2017-07-25] MEDS: FLUDROCORTISONE ACETATE 0.1 MG TAB PO (08:07)
[2017-07-25 14:30] LABS: BEDSIDE GLUCOSE 278 MG/DL (70-105)
[2017-07-25 17:21] LABS: BEDSIDE GLUCOSE 151 MG/DL (70-105)
[2017-07-25] MEDS: LATANOPROST 0.005% OPHTH SOLN 2.5 ML OU (21:21)
[2017-07-25 21:55] LABS: BEDSIDE GLUCOSE 120 MG/DL (70-105)
[2017-07-26] MEDS: PIPERACILLIN/TAZOBACTAM SOD 3.375 GM in APPROPRIATE DILUENT 1 EA IV ×4 (02:34→20:55)
[2017-07-26] MEDS: ONDANSETRON 4MG/2ML VIAL (J2405) IV ×2 (04:34→20:55)
[2017-07-26] MEDS: SODIUM CHLORIDE 0.9% INJ 10 ML SYR IV ×2 (05:21→16:35)
[2017-07-26] MEDS: NORCO, ANEXSIA 5/325MG TABLET (HYDROcodone/ACETAMINOPHEN) PO ×2 (05:21→10:50)
[2017-07-26 07:24] LABS: BEDSIDE GLUCOSE 275 MG/DL (70-105)
[2017-07-26] MEDS: METOCLOPRAMIDE 5 MG TAB PO ×3 (08:09→16:35)
[2017-07-26] MEDS: HumaLOG INSULIN (NovoLOG) PER UNIT SC ×4 (08:10→20:33)
[2017-07-26] MEDS: MORPHINE 4 MG/ML 1ML VIAL/SYRINGE (J2270) IV ×2 (09:22→17:38)
[2017-07-26] MEDS: CitaloPRAM (CeleXA) 20 MG TAB PO (10:15)
[2017-07-26] MEDS: ASPIRIN 81 MG ENTERIC TAB PO (10:15)
[2017-07-26] MEDS: FLUDROCORTISONE ACETATE 0.1 MG TAB PO (10:15)
[2017-07-26] MEDS: cloNIDine 0.2 MG TAB PO (10:16)
[2017-07-26] MEDS: CLOPIDOGREL 75 MG TAB PO (10:16)
[2017-07-26] MEDS: PANTOPRAZOLE 40MG TAB (PROTONIX) PO (10:17)
[2017-07-26] MEDS: ATORVASTATIN 20 MG TAB PO (10:17)
[2017-07-26] MEDS: FERROUS SULFATE 325MG TAB PO ×2 (10:17→23:02)
[2017-07-26] MEDS: SENOKOT S TAB PO ×2 (10:18→21:00)
[2017-07-26] MEDS: predniSONE 5 MG TAB PO (10:18)
[2017-07-26] MEDS: DOCUSATE SODIUM 100 MG CAP PO ×2 (10:18→21:00)
[2017-07-26] MEDS: COSOPT OCUMETER PLUS 10ML (DORZOLAMIDE/TIMOLOL) OU ×2 (10:19→22:51)
[2017-07-26] MEDS: LEVEMIR (INSULIN DETEMIR) 1 UNITS/0.01ML SC ×2 (10:19→23:03)
[2017-07-26] MEDS: HEPARIN SOD (PORCINE) 5000 UNITS/ML VIAL SQ ×2 (10:20→23:02)
[2017-07-26 11:41] LABS: BEDSIDE GLUCOSE 217 MG/DL (70-105)
[2017-07-26 12:01] LABS: BEDSIDE GLUCOSE 217 MG/DL (70-105)
[2017-07-26] MEDS ORDERED: PERCOCET 5MG/325MG TAB PO (13:00)
[2017-07-26] MEDS: **hydrALAZINE** 10 MG TAB PO ×3 (13:50→21:00)
[2017-07-26] MEDS: GABAPENTIN 100 MG CAP PO ×2 (16:35→23:02)
[2017-07-26 16:37] LABS: BEDSIDE GLUCOSE 135 MG/DL (70-105)
[2017-07-26] MEDS: PERCOCET 5MG/325MG TAB PO ×2 (16:53→23:03)
[2017-07-26 20:53] LABS: BEDSIDE GLUCOSE 172 MG/DL (70-105)
[2017-07-26] MEDS: LATANOPROST 0.005% OPHTH SOLN 2.5 ML OU (22:51)
[2017-07-27] MEDS: PIPERACILLIN/TAZOBACTAM SOD 3.375 GM in APPROPRIATE DILUENT 1 EA IV ×4 (03:11→21:00)
[2017-07-27] MEDS: PERCOCET 5MG/325MG TAB PO ×3 (04:55→16:57)
[2017-07-27] MEDS: SODIUM CHLORIDE 0.9% INJ 10 ML SYR IV ×2 (04:56→16:57)
[2017-07-27 05:27] LABS: BEDSIDE GLUCOSE 119 MG/DL (70-105)
[2017-07-27] MEDS: MORPHINE 4 MG/ML 1ML VIAL/SYRINGE (J2270) IV (06:13)
[2017-07-27 06:38] LABS: ERYTHROCYTE SEDIMENTATION RATE 82 mm/hr (0-20)
[2017-07-27] MEDS: HumaLOG INSULIN (NovoLOG) PER UNIT SC ×4 (07:30→20:53)
[2017-07-27] MEDS: LEVEMIR (INSULIN DETEMIR) 1 UNITS/0.01ML SC ×2 (08:14→21:06)
[2017-07-27] MEDS: ASPIRIN 81 MG ENTERIC TAB PO (08:15)
[2017-07-27] MEDS: HEPARIN SOD (PORCINE) 5000 UNITS/ML VIAL SQ ×2 (08:15→21:01)
[2017-07-27] MEDS: CitaloPRAM (CeleXA) 20 MG TAB PO (08:15)
[2017-07-27] MEDS: METOCLOPRAMIDE 5 MG TAB PO ×3 (08:15→16:57)
[2017-07-27] MEDS: predniSONE 5 MG TAB PO (08:15)
[2017-07-27] MEDS: COSOPT OCUMETER PLUS 10ML (DORZOLAMIDE/TIMOLOL) OU ×2 (08:15→21:04)
[2017-07-27] MEDS: ATORVASTATIN 20 MG TAB PO (08:15)
[2017-07-27] MEDS: GABAPENTIN 100 MG CAP PO ×3 (08:15→21:01)
[2017-07-27] MEDS: FERROUS SULFATE 325MG TAB PO ×2 (08:16→21:01)
[2017-07-27] MEDS: PANTOPRAZOLE 40MG TAB (PROTONIX) PO (08:16)
[2017-07-27] MEDS: CLOPIDOGREL 75 MG TAB PO (08:16)
[2017-07-27] MEDS: SENOKOT S TAB PO ×2 (08:16→21:01)
[2017-07-27] MEDS: **hydrALAZINE** 10 MG TAB PO ×2 (08:16→21:13)
[2017-07-27] MEDS: DOCUSATE SODIUM 100 MG CAP PO ×2 (08:16→21:00)
[2017-07-27 12:30] LABS: BEDSIDE GLUCOSE 201 MG/DL (70-105)
[2017-07-27 17:39] LABS: BEDSIDE GLUCOSE 116 MG/DL (70-105)
[2017-07-27] MEDS: LATANOPROST 0.005% OPHTH SOLN 2.5 ML OU (21:05)
[2017-07-27 21:11] LABS: BEDSIDE GLUCOSE 140 MG/DL (70-105)
[2017-07-27] MEDS: ONDANSETRON 4MG/2ML VIAL (J2405) IV (23:42)
[2017-07-28] MEDS: PIPERACILLIN/TAZOBACTAM SOD 3.375 GM in APPROPRIATE DILUENT 1 EA IV ×3 (01:41→13:23)
[2017-07-28] MEDS: PERCOCET 5MG/325MG TAB PO ×4 (01:42→20:43)
[2017-07-28] MEDS: SODIUM CHLORIDE 0.9% INJ 10 ML SYR IV ×2 (05:28→17:38)
[2017-07-28 06:39] LABS: BEDSIDE GLUCOSE 47 MG/DL (70-105)
[2017-07-28] MEDS: MORPHINE 4 MG/ML 1ML VIAL/SYRINGE (J2270) IV (06:54)
[2017-07-28 07:06] LABS: BEDSIDE GLUCOSE 88 MG/DL (70-105)
[2017-07-28] MEDS: HumaLOG INSULIN (NovoLOG) PER UNIT SC ×4 (07:30→20:43)
[2017-07-28] MEDS: GABAPENTIN 300 MG CAP PO ×4 (07:58→20:42)
[2017-07-28] MEDS: HEPARIN SOD (PORCINE) 5000 UNITS/ML VIAL SQ ×2 (08:15→20:41)
[2017-07-28] MEDS: PANTOPRAZOLE 40MG TAB (PROTONIX) PO (08:15)
[2017-07-28] MEDS: CitaloPRAM (CeleXA) 20 MG TAB PO (08:15)
[2017-07-28] MEDS: ASPIRIN 81 MG ENTERIC TAB PO (08:15)
[2017-07-28] MEDS: SENOKOT S TAB PO ×2 (08:15→20:42)
[2017-07-28] MEDS: CLOPIDOGREL 75 MG TAB PO (08:15)
[2017-07-28] MEDS: LEVEMIR (INSULIN DETEMIR) 1 UNITS/0.01ML SC ×3 (08:15→20:47)
[2017-07-28] MEDS: ATORVASTATIN 20 MG TAB PO (08:15)
[2017-07-28] MEDS: COSOPT OCUMETER PLUS 10ML (DORZOLAMIDE/TIMOLOL) OU ×2 (08:15→20:42)
[2017-07-28] MEDS: predniSONE 5 MG TAB PO (08:16)
[2017-07-28] MEDS: FERROUS SULFATE 325MG TAB PO ×2 (08:16→20:42)
[2017-07-28] MEDS: METOCLOPRAMIDE 5 MG TAB PO ×3 (08:16→17:37)
[2017-07-28] MEDS: DOCUSATE SODIUM 100 MG CAP PO ×2 (08:16→20:42)
[2017-07-28] MEDS: **hydrALAZINE** 10 MG TAB PO ×2 (08:16→20:42)
[2017-07-28 17:14] LABS: BEDSIDE GLUCOSE 159 MG/DL (70-105)
[2017-07-28 19:52] LABS: BEDSIDE GLUCOSE 124 MG/DL (70-105)
[2017-07-28] MEDS: LATANOPROST 0.005% OPHTH SOLN 2.5 ML OU (20:42)
[2017-07-29] MEDS: ONDANSETRON 4MG/2ML VIAL (J2405) IV ×3 (00:43→17:48)
[2017-07-29] MEDS: PERCOCET 5MG/325MG TAB PO ×4 (05:21→19:03)
[2017-07-29] MEDS: SODIUM CHLORIDE 0.9% INJ 10 ML SYR IV ×2 (05:21→17:47)
[2017-07-29 06:03] LABS: BEDSIDE GLUCOSE 183 MG/DL (70-105)
[2017-07-29] MEDS: SUCRALFATE 1 GM TAB PO ×4 (09:06→20:45)
[2017-07-29] MEDS: FERROUS SULFATE 325MG TAB PO ×2 (09:06→20:46)
[2017-07-29] MEDS: CitaloPRAM (CeleXA) 20 MG TAB PO (09:07)
[2017-07-29] MEDS: SENOKOT S TAB PO ×2 (09:08→20:46)
[2017-07-29] MEDS: METOCLOPRAMIDE 5 MG TAB PO ×3 (09:08→17:49)
[2017-07-29] MEDS: predniSONE 5 MG TAB PO (09:09)
[2017-07-29] MEDS: GABAPENTIN 300 MG CAP PO ×3 (09:09→20:45)
[2017-07-29] MEDS: ATORVASTATIN 20 MG TAB PO (09:09)
[2017-07-29] MEDS: **hydrALAZINE** 10 MG TAB PO ×2 (09:09→20:46)
[2017-07-29] MEDS: PANTOPRAZOLE 40MG TAB (PROTONIX) PO (09:09)
[2017-07-29] MEDS: DOCUSATE SODIUM 100 MG CAP PO ×2 (09:09→20:46)
[2017-07-29] MEDS: HumaLOG INSULIN (NovoLOG) PER UNIT SC ×4 (09:10→20:46)
[2017-07-29] MEDS: LEVEMIR (INSULIN DETEMIR) 1 UNITS/0.01ML SC ×2 (09:11→20:47)
[2017-07-29] MEDS: COSOPT OCUMETER PLUS 10ML (DORZOLAMIDE/TIMOLOL) OU ×2 (09:11→20:47)
[2017-07-29 12:05] LABS: HEMATOCRIT 26.6 % (42.0-52.0); HEMOGLOBIN 8.8 g/dl (13.5-17.5)
[2017-07-29 12:38] LABS: BEDSIDE GLUCOSE 144 MG/DL (70-105)
[2017-07-29 17:41] LABS: HEMATOCRIT 27.7 % (42.0-52.0); HEMOGLOBIN 9.2 g/dl (13.5-17.5)
[2017-07-29] MEDS: MORPHINE 4 MG/ML 1ML VIAL/SYRINGE (J2270) IV ×2 (17:48→20:45)
[2017-07-29 18:01] LABS: BEDSIDE GLUCOSE 140 MG/DL (70-105)
[2017-07-29] MEDS: LATANOPROST 0.005% OPHTH SOLN 2.5 ML OU (20:47)
[2017-07-29 20:52] LABS: BEDSIDE GLUCOSE 192 MG/DL (70-105)
[2017-07-30 00:24] LABS: HEMATOCRIT 29.1 % (42.0-52.0); HEMOGLOBIN 9.6 g/dl (13.5-17.5)
[2017-07-30] MEDS ORDERED: HumaLOG INSULIN (NovoLOG) PER UNIT SC (03:30)
[2017-07-30 05:32] LABS: HEMATOCRIT 27.2 % (42.0-52.0); HEMOGLOBIN 9.1 g/dl (13.5-17.5)
[2017-07-30] MEDS: MORPHINE 4 MG/ML 1ML VIAL/SYRINGE (J2270) IV (05:41)
[2017-07-30] MEDS: SODIUM CHLORIDE 0.9% INJ 10 ML SYR IV ×2 (05:41→17:43)
[2017-07-30 06:17] LABS: BEDSIDE GLUCOSE 279 MG/DL (70-105)
[2017-07-30] MEDS: METOCLOPRAMIDE 5 MG TAB PO ×3 (08:29→17:42)
[2017-07-30] MEDS: FERROUS SULFATE 325MG TAB PO ×2 (08:30→21:08)
[2017-07-30] MEDS: SUCRALFATE 1 GM TAB PO ×4 (08:30→21:08)
[2017-07-30] MEDS: **hydrALAZINE** 10 MG TAB PO ×2 (08:30→21:08)
[2017-07-30] MEDS: predniSONE 5 MG TAB PO (08:31)
[2017-07-30] MEDS: HumaLOG INSULIN (NovoLOG) PER UNIT SC ×4 (08:31→20:50)
[2017-07-30] MEDS: SENOKOT S TAB PO ×2 (08:32→21:08)
[2017-07-30] MEDS: LEVEMIR (INSULIN DETEMIR) 1 UNITS/0.01ML SC ×2 (08:32→21:09)
[2017-07-30] MEDS: PANTOPRAZOLE 40MG TAB (PROTONIX) PO (08:33)
[2017-07-30] MEDS: GABAPENTIN 300 MG CAP PO ×3 (08:33→21:08)
[2017-07-30] MEDS: DOCUSATE SODIUM 100 MG CAP PO ×2 (08:34→21:08)
[2017-07-30] MEDS: ATORVASTATIN 20 MG TAB PO (08:34)
[2017-07-30] MEDS: CitaloPRAM (CeleXA) 20 MG TAB PO (08:35)
[2017-07-30] MEDS: COSOPT OCUMETER PLUS 10ML (DORZOLAMIDE/TIMOLOL) OU ×2 (08:35→21:09)
[2017-07-30] MEDS: PERCOCET 5MG/325MG TAB PO ×3 (08:36→17:42)
[2017-07-30] MEDS: traMADol ER 100MG TABLET (ULTRAM ER) PO (09:00)
[2017-07-30 12:36] LABS: HEMATOCRIT 26.8 % (42.0-52.0); HEMOGLOBIN 8.7 g/dl (13.5-17.5)
[2017-07-30 12:49] LABS: BEDSIDE GLUCOSE 180 MG/DL (70-105)
[2017-07-30 15:10] LABS: BEDSIDE GLUCOSE 36 MG/DL (70-105)
[2017-07-30 15:10] LABS: BEDSIDE GLUCOSE 33 MG/DL (70-105)
[2017-07-30 16:49] LABS: BEDSIDE GLUCOSE 132 MG/DL (70-105)
[2017-07-30 18:16] LABS: HEMOGLOBIN 8.7 g/dl (13.5-17.5)
[2017-07-30 21:08] LABS: BEDSIDE GLUCOSE 179 MG/DL (70-105)
[2017-07-30] MEDS: LATANOPROST 0.005% OPHTH SOLN 2.5 ML OU (21:09)
[2017-07-31 00:28] LABS: HEMATOCRIT 31.9 % (42.0-52.0); HEMOGLOBIN 10.4 g/dl (13.5-17.5)
[2017-07-31] MEDS: PERCOCET 5MG/325MG TAB PO (03:42)
[2017-07-31 05:33] LABS: HEMATOCRIT 25.9 % (42.0-52.0); HEMOGLOBIN 8.7 g/dl (13.5-17.5); MEAN CORPUSCULAR HEMOGLOBIN 28.3 pg (27.0-33.0); MEAN CORPUSCULAR HGB CONC 33.6 g/dl (32.0-36.5); MEAN CORPUSCULAR VOLUME 84.4 fl (80.0-96.0); PLATELET COUNT, AUTOMATED 399 10^3/uL (150-450); RED BLOOD COUNT 3.07 10^6/uL (4.30-6.10); RED CELL DISTRIBUTION WIDTH 15.1 % (11.5-14.5); WHITE BLOOD COUNT 8.2 10^3/uL (4.0-10.0)
[2017-07-31 05:51] LABS: ANION GAP 9 MEQ/L (8-16); BLOOD UREA NITROGEN 9 MG/DL (7-18); CALCIUM LEVEL 9.1 MG/DL (8.5-10.1); CARBON DIOXIDE LEVEL 28 MEQ/L (21-32); CHLORIDE LEVEL 100 MEQ/L (98-107); CREATININE FOR GFR 0.83 MG/DL (0.70-1.30); GLOMERULAR FILTRATION RATE > 60.0 (>56); GLUCOSE, FASTING 247 MG/DL (70-100); PHOSPHORUS LEVEL 2.6 MG/DL (2.5-4.9); POTASSIUM SERUM 3.7 MEQ/L (3.5-5.1); SODIUM LEVEL 137 MEQ/L (136-145)
[2017-07-31] MEDS: SODIUM CHLORIDE 0.9% INJ 10 ML SYR IV ×2 (06:00→17:19)
[2017-07-31 06:09] LABS: BEDSIDE GLUCOSE 254 MG/DL (70-105)
[2017-07-31] MEDS: HumaLOG INSULIN (NovoLOG) PER UNIT SC ×4 (07:32→21:09)
[2017-07-31] MEDS: METOCLOPRAMIDE 5 MG TAB PO ×3 (07:32→17:19)
[2017-07-31] MEDS: SUCRALFATE 1 GM TAB PO ×4 (07:32→21:08)
[2017-07-31] MEDS: predniSONE 5 MG TAB PO (09:41)
[2017-07-31] MEDS: SENOKOT S TAB PO ×2 (09:41→21:07)
[2017-07-31] MEDS: FERROUS SULFATE 325MG TAB PO ×2 (09:41→21:06)
[2017-07-31] MEDS: DOCUSATE SODIUM 100 MG CAP PO ×2 (09:41→21:06)
[2017-07-31] MEDS: ATORVASTATIN 20 MG TAB PO (09:41)
[2017-07-31] MEDS: PANTOPRAZOLE 40MG TAB (PROTONIX) PO (09:41)
[2017-07-31] MEDS: CitaloPRAM (CeleXA) 20 MG TAB PO (09:42)
[2017-07-31] MEDS: **hydrALAZINE** 10 MG TAB PO ×2 (09:42→21:07)
[2017-07-31] MEDS: GABAPENTIN 300 MG CAP PO ×3 (09:43→21:06)
[2017-07-31] MEDS: COSOPT OCUMETER PLUS 10ML (DORZOLAMIDE/TIMOLOL) OU ×2 (09:44→21:09)
[2017-07-31] MEDS: LEVEMIR (INSULIN DETEMIR) 1 UNITS/0.01ML SC ×2 (09:44→21:08)
[2017-07-31] MEDS: traMADol ER 100MG TABLET (ULTRAM ER) PO (09:54)
[2017-07-31 11:25] LABS: BEDSIDE GLUCOSE 299 MG/DL (70-105)
[2017-07-31 12:13] LABS: HEMATOCRIT 25.7 % (42.0-52.0); HEMOGLOBIN 8.5 g/dl (13.5-17.5)
[2017-07-31 17:22] LABS: BEDSIDE GLUCOSE 155 MG/DL (70-105)
[2017-07-31 17:57] LABS: HEMATOCRIT 26.7 % (42.0-52.0)
[2017-07-31 20:19] LABS: BEDSIDE GLUCOSE 305 MG/DL (70-105)
[2017-07-31] MEDS: LATANOPROST 0.005% OPHTH SOLN 2.5 ML OU (21:09)
[2017-07-31] MEDS: ONDANSETRON 4MG/2ML VIAL (J2405) IV (21:42)
[2017-08-01 00:19] LABS: HEMATOCRIT 25.5 % (42.0-52.0); HEMOGLOBIN 8.3 g/dl (13.5-17.5)
[2017-08-01 05:34] LABS: HEMATOCRIT 26.1 % (42.0-52.0); HEMOGLOBIN 8.6 g/dl (13.5-17.5); MEAN CORPUSCULAR HEMOGLOBIN 28.2 pg (27.0-33.0); MEAN CORPUSCULAR VOLUME 85.6 fl (80.0-96.0); PLATELET COUNT, AUTOMATED 380 10^3/uL (150-450); RED BLOOD COUNT 3.05 10^6/uL (4.30-6.10); RED CELL DISTRIBUTION WIDTH 15.4 % (11.5-14.5); WHITE BLOOD COUNT 7.8 10^3/uL (4.0-10.0)
[2017-08-01 05:51] LABS: BEDSIDE GLUCOSE 253 MG/DL (70-105)
[2017-08-01 05:53] LABS: ANION GAP 8 MEQ/L (8-16); BLOOD UREA NITROGEN 10 MG/DL (7-18); CALCIUM LEVEL 9.2 MG/DL (8.5-10.1); CARBON DIOXIDE LEVEL 28 MEQ/L (21-32); CHLORIDE LEVEL 101 MEQ/L (98-107); CREATININE FOR GFR 0.83 MG/DL (0.70-1.30); GLOMERULAR FILTRATION RATE > 60.0 (>56); GLUCOSE, FASTING 244 MG/DL (70-100); PHOSPHORUS LEVEL 3.3 MG/DL (2.5-4.9); POTASSIUM SERUM 3.5 MEQ/L (3.5-5.1); SODIUM LEVEL 137 MEQ/L (136-145)
[2017-08-01] MEDS: SODIUM CHLORIDE 0.9% INJ 10 ML SYR IV ×3 (06:00→17:47)
[2017-08-01] MEDS: DOCUSATE SODIUM 100 MG CAP PO ×2 (08:27→20:21)
[2017-08-01] MEDS: GABAPENTIN 300 MG CAP PO ×3 (08:27→20:21)
[2017-08-01] MEDS: SUCRALFATE 1 GM TAB PO ×4 (08:27→20:20)
[2017-08-01] MEDS: SENOKOT S TAB PO ×2 (08:27→20:21)
[2017-08-01] MEDS: ATORVASTATIN 20 MG TAB PO (08:27)
[2017-08-01] MEDS: METOCLOPRAMIDE 5 MG TAB PO ×3 (08:27→17:46)
[2017-08-01] MEDS: PANTOPRAZOLE 40MG TAB (PROTONIX) PO (08:28)
[2017-08-01] MEDS: CitaloPRAM (CeleXA) 20 MG TAB PO (08:28)
[2017-08-01] MEDS: traMADol ER 100MG TABLET (ULTRAM ER) PO (08:28)
[2017-08-01] MEDS: FERROUS SULFATE 325MG TAB PO ×2 (08:28→20:21)
[2017-08-01] MEDS: **hydrALAZINE** 10 MG TAB PO (08:28)
[2017-08-01] MEDS: predniSONE 5 MG TAB PO (08:28)
[2017-08-01] MEDS: HumaLOG INSULIN (NovoLOG) PER UNIT SC ×4 (08:29→20:09)
[2017-08-01] MEDS: LEVEMIR (INSULIN DETEMIR) 1 UNITS/0.01ML SC ×2 (08:29→20:22)
[2017-08-01] MEDS: COSOPT OCUMETER PLUS 10ML (DORZOLAMIDE/TIMOLOL) OU ×2 (08:29→20:21)
[2017-08-01 10:46] LABS: IMMEDIATE SPIN CROSSMATCH 1 1
[2017-08-01 12:38] LABS: BEDSIDE GLUCOSE 183 MG/DL (70-105)
[2017-08-01 14:04] LABS: HEMATOCRIT 29.6 % (42.0-52.0); HEMOGLOBIN 9.8 g/dl (13.5-17.5)
[2017-08-01] MEDS: LISINOPRIL 10 MG TAB PO (15:23)
[2017-08-01 16:47] LABS: BEDSIDE GLUCOSE 55 MG/DL (70-105)
[2017-08-01 17:50] LABS: BEDSIDE GLUCOSE 140 MG/DL (70-105)
[2017-08-01 18:42] LABS: HEMATOCRIT 31.6 % (42.0-52.0); HEMOGLOBIN 10.5 g/dl (13.5-17.5)
[2017-08-01 20:12] LABS: BEDSIDE GLUCOSE 210 MG/DL (70-105)
[2017-08-01] MEDS: LATANOPROST 0.005% OPHTH SOLN 2.5 ML OU (20:21)
[2017-08-02] MEDS: SODIUM CHLORIDE 0.9% INJ 10 ML SYR IV ×2 (05:46→18:43)
[2017-08-02 05:48] LABS: HEMOGLOBIN 9.6 g/dl (13.5-17.5); MEAN CORPUSCULAR HEMOGLOBIN 28.4 pg (27.0-33.0); MEAN CORPUSCULAR HGB CONC 33.1 g/dl (32.0-36.5); MEAN CORPUSCULAR VOLUME 85.8 fl (80.0-96.0); PLATELET COUNT, AUTOMATED 396 10^3/uL (150-450); RED BLOOD COUNT 3.38 10^6/uL (4.30-6.10); RED CELL DISTRIBUTION WIDTH 15.5 % (11.5-14.5); WHITE BLOOD COUNT 7.4 10^3/uL (4.0-10.0)
[2017-08-02 06:07] LABS: ANION GAP 3 MEQ/L (8-16); BLOOD UREA NITROGEN 14 MG/DL (7-18); CALCIUM LEVEL 9.2 MG/DL (8.5-10.1); CARBON DIOXIDE LEVEL 31 MEQ/L (21-32); CHLORIDE LEVEL 101 MEQ/L (98-107); CREATININE FOR GFR 0.88 MG/DL (0.70-1.30); GLOMERULAR FILTRATION RATE > 60.0 (>56); GLUCOSE, FASTING 236 MG/DL (70-100); PHOSPHORUS LEVEL 3.4 MG/DL (2.5-4.9); POTASSIUM SERUM 3.8 MEQ/L (3.5-5.1); SODIUM LEVEL 135 MEQ/L (136-145)
[2017-08-02 06:35] LABS: BEDSIDE GLUCOSE 252 MG/DL (70-105)
[2017-08-02] MEDS: LEVEMIR (INSULIN DETEMIR) 1 UNITS/0.01ML SC ×3 (08:23→21:41)
[2017-08-02] MEDS: HumaLOG INSULIN (NovoLOG) PER UNIT SC ×4 (08:24→21:00)
[2017-08-02] MEDS: PANTOPRAZOLE 40MG TAB (PROTONIX) PO (08:24)
[2017-08-02] MEDS: GABAPENTIN 300 MG CAP PO ×3 (08:24→21:40)
[2017-08-02] MEDS: METOCLOPRAMIDE 5 MG TAB PO ×3 (08:24→17:30)
[2017-08-02] MEDS: DOCUSATE SODIUM 100 MG CAP PO ×2 (08:24→21:40)
[2017-08-02] MEDS: traMADol ER 100MG TABLET (ULTRAM ER) PO (08:24)
[2017-08-02] MEDS: SUCRALFATE 1 GM TAB PO ×4 (08:24→21:40)
[2017-08-02] MEDS: predniSONE 5 MG TAB PO (08:25)
[2017-08-02] MEDS: SENOKOT S TAB PO ×2 (08:25→21:40)
[2017-08-02] MEDS: CitaloPRAM (CeleXA) 20 MG TAB PO (08:25)
[2017-08-02] MEDS: ATORVASTATIN 20 MG TAB PO (08:25)
[2017-08-02] MEDS: FERROUS SULFATE 325MG TAB PO ×2 (08:25→21:40)
[2017-08-02] MEDS: LISINOPRIL 10 MG TAB PO ×2 (08:25→14:11)
[2017-08-02] MEDS: COSOPT OCUMETER PLUS 10ML (DORZOLAMIDE/TIMOLOL) OU ×2 (08:28→21:40)
[2017-08-02 11:58] LABS: BEDSIDE GLUCOSE 58 MG/DL (70-105)
[2017-08-02 12:53] LABS: BEDSIDE GLUCOSE 122 MG/DL (70-105)
[2017-08-02 14:11] LABS: BEDSIDE GLUCOSE 94 MG/DL (70-105)
[2017-08-02] MEDS: GOLYTELY SOLN 4000 ML BTL PO (15:30)
[2017-08-02 17:34] LABS: BEDSIDE GLUCOSE 116 MG/DL (70-105)
[2017-08-02 21:24] LABS: BEDSIDE GLUCOSE 118 MG/DL (70-105)
[2017-08-02] MEDS: BISACODYL 5 MG TAB PO (21:40)
[2017-08-02] MEDS: LATANOPROST 0.005% OPHTH SOLN 2.5 ML OU (21:41)
[2017-08-03 01:40] LABS: BEDSIDE GLUCOSE 95 MG/DL (70-105)
[2017-08-03] MEDS: ONDANSETRON 4MG/2ML VIAL (J2405) IV (04:55)
[2017-08-03] MEDS: SODIUM CHLORIDE 0.9% INJ 10 ML SYR IV ×2 (05:29→17:06)
[2017-08-03 06:11] LABS: HEMATOCRIT 31.6 % (42.0-52.0); HEMOGLOBIN 10.3 g/dl (13.5-17.5); MEAN CORPUSCULAR HEMOGLOBIN 28.5 pg (27.0-33.0); MEAN CORPUSCULAR HGB CONC 32.6 g/dl (32.0-36.5); MEAN CORPUSCULAR VOLUME 87.5 fl (80.0-96.0); PLATELET COUNT, AUTOMATED 408 10^3/uL (150-450); RED BLOOD COUNT 3.61 10^6/uL (4.30-6.10); RED CELL DISTRIBUTION WIDTH 15.8 % (11.5-14.5); WHITE BLOOD COUNT 7.2 10^3/uL (4.0-10.0)
[2017-08-03 06:14] LABS: BEDSIDE GLUCOSE 79 MG/DL (70-105)
[2017-08-03 06:30] LABS: ALBUMIN 2.1 GM/DL (3.2-5.2); ANION GAP 7 MEQ/L (8-16); BLOOD UREA NITROGEN 12 MG/DL (7-18); CALCIUM LEVEL 9.5 MG/DL (8.5-10.1); CARBON DIOXIDE LEVEL 29 MEQ/L (21-32); CHLORIDE LEVEL 103 MEQ/L (98-107); CREATININE FOR GFR 0.95 MG/DL (0.70-1.30); GLOMERULAR FILTRATION RATE > 60.0 (>56); GLUCOSE, FASTING 66 MG/DL (70-100); PHOSPHORUS LEVEL 3.6 MG/DL (2.5-4.9); POTASSIUM SERUM 3.6 MEQ/L (3.5-5.1); SODIUM LEVEL 139 MEQ/L (136-145)
[2017-08-03 06:48] LABS: ERYTHROCYTE SEDIMENTATION RATE 56 mm/hr (0-20)
[2017-08-03] MEDS: HumaLOG INSULIN (NovoLOG) PER UNIT SC ×4 (07:30→20:42)
[2017-08-03] MEDS: traMADol ER 100MG TABLET (ULTRAM ER) PO ×2 (08:52→10:42)
[2017-08-03] MEDS: D5W/0.45% SODIUM CHLORIDE 1,000 ML IV (09:25)
[2017-08-03] MEDS: LEVEMIR (INSULIN DETEMIR) 1 UNITS/0.01ML SC (10:21)
[2017-08-03] MEDS: CitaloPRAM (CeleXA) 20 MG TAB PO (10:23)
[2017-08-03] MEDS: SENOKOT S TAB PO ×2 (10:23→20:34)
[2017-08-03] MEDS: METOCLOPRAMIDE 5 MG TAB PO ×3 (10:23→16:43)
[2017-08-03] MEDS: DOCUSATE SODIUM 100 MG CAP PO ×2 (10:23→20:34)
[2017-08-03] MEDS: SUCRALFATE 1 GM TAB PO ×4 (10:23→20:34)
[2017-08-03] MEDS: GABAPENTIN 300 MG CAP PO ×3 (10:24→20:34)
[2017-08-03] MEDS: PANTOPRAZOLE 40MG TAB (PROTONIX) PO ×2 (10:24→20:35)
[2017-08-03] MEDS: LISINOPRIL 20 MG TAB PO (10:24)
[2017-08-03] MEDS: ATORVASTATIN 20 MG TAB PO (10:25)
[2017-08-03] MEDS: FERROUS SULFATE 325MG TAB PO ×2 (10:31→20:34)
[2017-08-03] MEDS: predniSONE 5 MG TAB PO (10:31)
[2017-08-03] MEDS: COSOPT OCUMETER PLUS 10ML (DORZOLAMIDE/TIMOLOL) OU ×2 (10:32→20:38)
[2017-08-03 11:45] LABS: BEDSIDE GLUCOSE 125 MG/DL (70-105)
[2017-08-03] MEDS ORDERED: PROPOFOL 200 MG/20 ML VIAL As Ordered ×2 (12:10)
[2017-08-03] MEDS: ASPIRIN 81 MG ENTERIC TAB PO (16:45)
[2017-08-03 17:20] LABS: BEDSIDE GLUCOSE 291 MG/DL (70-105)
[2017-08-03] MEDS: ACETAMINOPHEN TAB 650MG DOSE (2X325MG) PO (20:35)
[2017-08-03] MEDS: LATANOPROST 0.005% OPHTH SOLN 2.5 ML OU (20:38)
[2017-08-03 20:49] LABS: BEDSIDE GLUCOSE 259 MG/DL (70-105)
[2017-08-04 03:28] LABS: BEDSIDE GLUCOSE 227 MG/DL (70-105)
[2017-08-04 05:50] LABS: HEMATOCRIT 28.9 % (42.0-52.0); HEMOGLOBIN 9.7 g/dl (13.5-17.5); MEAN CORPUSCULAR HEMOGLOBIN 28.6 pg (27.0-33.0); MEAN CORPUSCULAR HGB CONC 33.6 g/dl (32.0-36.5); MEAN CORPUSCULAR VOLUME 85.3 fl (80.0-96.0); PLATELET COUNT, AUTOMATED 384 10^3/uL (150-450); RED BLOOD COUNT 3.39 10^6/uL (4.30-6.10); RED CELL DISTRIBUTION WIDTH 15.1 % (11.5-14.5); WHITE BLOOD COUNT 6.8 10^3/uL (4.0-10.0)
[2017-08-04 06:14] LABS: ALBUMIN 2.1 GM/DL (3.2-5.2); ANION GAP 5 MEQ/L (8-16); BLOOD UREA NITROGEN 8 MG/DL (7-18); CARBON DIOXIDE LEVEL 31 MEQ/L (21-32); CHLORIDE LEVEL 99 MEQ/L (98-107); CREATININE FOR GFR 0.85 MG/DL (0.70-1.30); GLOMERULAR FILTRATION RATE > 60.0 (>56); GLUCOSE, FASTING 285 MG/DL (70-100); POTASSIUM SERUM 3.8 MEQ/L (3.5-5.1); SODIUM LEVEL 135 MEQ/L (136-145)
[2017-08-04] MEDS: SODIUM CHLORIDE 0.9% INJ 10 ML SYR IV ×5 (06:18→18:00)
[2017-08-04 06:30] LABS: PHOSPHORUS LEVEL 2.4 MG/DL (2.5-4.9)
[2017-08-04] MEDS: traMADol 50 MG TAB PO ×2 (09:00→16:17)
[2017-08-04] MEDS ORDERED: diphenhydrAMINE CREAM 30GM TOP (09:00)
[2017-08-04] MEDS: LEVEMIR (INSULIN DETEMIR) 1 UNITS/0.01ML SC (09:07)
[2017-08-04] MEDS: HumaLOG INSULIN (NovoLOG) PER UNIT SC ×4 (09:08→21:00)
[2017-08-04] MEDS: PANTOPRAZOLE 40MG TAB (PROTONIX) PO ×2 (09:09→21:51)
[2017-08-04] MEDS: DOCUSATE SODIUM 100 MG CAP PO ×2 (09:09→21:51)
[2017-08-04] MEDS: CLOPIDOGREL 75 MG TAB PO (09:09)
[2017-08-04] MEDS: ATORVASTATIN 20 MG TAB PO (09:09)
[2017-08-04] MEDS: SUCRALFATE 1 GM TAB PO ×4 (09:10→21:51)
[2017-08-04] MEDS: GABAPENTIN 300 MG CAP PO ×3 (09:10→21:51)
[2017-08-04] MEDS: SENOKOT S TAB PO ×2 (09:11→21:51)
[2017-08-04] MEDS: METOCLOPRAMIDE 5 MG TAB PO ×3 (09:11→17:18)
[2017-08-04] MEDS: CitaloPRAM (CeleXA) 20 MG TAB PO (09:11)
[2017-08-04] MEDS: LISINOPRIL 20 MG TAB PO (09:12)
[2017-08-04] MEDS: FERROUS SULFATE 325MG TAB PO ×2 (09:12→21:51)
[2017-08-04] MEDS: predniSONE 5 MG TAB PO (09:12)
[2017-08-04] MEDS: ASPIRIN 81 MG ENTERIC TAB PO (09:13)
[2017-08-04] MEDS: COSOPT OCUMETER PLUS 10ML (DORZOLAMIDE/TIMOLOL) OU ×2 (09:14→21:54)
[2017-08-04] MEDS: ONDANSETRON 4MG/2ML VIAL (J2405) IV (10:18)
[2017-08-04 10:34] LABS: BEDSIDE GLUCOSE 324 MG/DL (70-105)
[2017-08-04] MEDS: KETOCONAZOLE 2% CREAM TOP ×2 (11:45→21:56)
[2017-08-04 14:01] LABS: BEDSIDE GLUCOSE 187 MG/DL (70-105)
[2017-08-04 14:24] LABS: ERYTHROCYTE SEDIMENTATION RATE 58 mm/hr (0-20)
[2017-08-04] MEDS: SODIUM PHOSPHATE INJ 20 MMOL in D5W 250 ML IV (14:38)
[2017-08-04] MEDS ORDERED: NS 500 ML IV (15:45)
[2017-08-04 16:59] LABS: BASO % 0.6 % (0.0-1.0); EOS # 0.3 10^3/uL (0.0-0.50); EOS % 3.9 % (0.0-3.0); HEMOGLOBIN 9.1 g/dl (13.5-17.5); IMMATURE GRANULOCYTE % 0.5 % (0-3.0); LYMPH # 1.5 10^3/uL (1.5-4.5); LYMPH % 23.5 % (24.0-44.0); MEAN CORPUSCULAR HEMOGLOBIN 28.4 pg (27.0-33.0); MEAN CORPUSCULAR HGB CONC 32.5 g/dl (32.0-36.5); MEAN CORPUSCULAR VOLUME 87.5 fl (80.0-96.0); MONO # 0.7 10^3/uL (0.0-0.8); MONO % 10.2 % (0.0-5.0); NEUTROPHILS # 3.9 10^3/uL (1.8-7.7); NEUTROPHILS % 61.3 % (36.0-66.0); PLATELET COUNT, AUTOMATED 388 10^3/uL (150-450); WHITE BLOOD COUNT 6.4 10^3/uL (4.0-10.0)
[2017-08-04 17:18] LABS: C REACTIVE PROTEIN QUANTITATIV 3.52 MG/DL (0.00-0.30)
[2017-08-04] MEDS: NS 500 ML IV (17:18)
[2017-08-04] MEDS: LIDOCAINE 5% (LIDODERM) PATCH TD (17:19)
[2017-08-04 17:21] LABS: BEDSIDE GLUCOSE 136 MG/DL (70-105)
[2017-08-04 17:23] LABS: CPK CREATINE PHOSPHOKINASE 247 U/L (39-308); TROPONIN I < 0.02 NG/ML (< 0.10)
[2017-08-04 17:24] LABS: LACTIC ACID SEPSIS PROTOCOL 2.6 MMOL/L (0.4-2.0)
[2017-08-04 17:24] LABS: CK-MB VALUE MASS < 1.0 NG/ML (<3.6)
[2017-08-04 18:11] LABS: AMMONIA 38 uMOL/L (<32)
[2017-08-04 21:38] LABS: CPK CREATINE PHOSPHOKINASE 244 U/L (39-308); TROPONIN I < 0.02 NG/ML (< 0.10)
[2017-08-04] MEDS: LATANOPROST 0.005% OPHTH SOLN 2.5 ML OU (21:54)
[2017-08-04] MEDS: **NOTE PATIENT COMMENT** MISC XX (21:58)
[2017-08-04 22:02] LABS: BEDSIDE GLUCOSE 211 MG/DL (70-105)
[2017-08-05 05:48] LABS: KETONE, URINE AUTO RFX NEGATIVE (NEGATIVE); LEUKOCYTE ESTERASE UR AUTO RFX NEGATIVE (NEGATIVE); MUCUS, URINE RFX SMALL (NEGATIVE); NITRITE, URINE AUTO RFX NEGATIVE (NEGATIVE); RBC, URINE AUTO RFX 2 /HPF (0-3); SPECIFIC GRAVITY UR AUTO RFX 1.005 (1.002-1.035); SQUAM EPITHELIAL CELL UR AURFX 0 /HPF (0-6); WBC, URINE AUTO RFX 0 /HPF (0-3)
[2017-08-05] MEDS: SODIUM CHLORIDE 0.9% INJ 10 ML SYR IV ×2 (06:11→17:00)
[2017-08-05 06:20] LABS: HEMATOCRIT 29.8 % (42.0-52.0); MEAN CORPUSCULAR HEMOGLOBIN 28.9 pg (27.0-33.0); MEAN CORPUSCULAR HGB CONC 33.6 g/dl (32.0-36.5); MEAN CORPUSCULAR VOLUME 86.1 fl (80.0-96.0); PLATELET COUNT, AUTOMATED 370 10^3/uL (150-450); RED BLOOD COUNT 3.46 10^6/uL (4.30-6.10); RED CELL DISTRIBUTION WIDTH 15.1 % (11.5-14.5); WHITE BLOOD COUNT 6.8 10^3/uL (4.0-10.0)
[2017-08-05 06:47] LABS: ALBUMIN 2.2 GM/DL (3.2-5.2); ANION GAP 7 MEQ/L (8-16); BLOOD UREA NITROGEN 9 MG/DL (7-18); CARBON DIOXIDE LEVEL 30 MEQ/L (21-32); CHLORIDE LEVEL 99 MEQ/L (98-107); CREATININE FOR GFR 0.95 MG/DL (0.70-1.30); GLOMERULAR FILTRATION RATE > 60.0 (>56); GLUCOSE, FASTING 360 MG/DL (70-100); PHOSPHORUS LEVEL 2.6 MG/DL (2.5-4.9); POTASSIUM SERUM 3.8 MEQ/L (3.5-5.1); SODIUM LEVEL 136 MEQ/L (136-145)
[2017-08-05] MEDS ORDERED: KETOROLAC 30 MG/ML VIAL (J1885) IV (07:00)
[2017-08-05] MEDS: SUCRALFATE 1 GM TAB PO ×5 (07:30→20:13)
[2017-08-05] MEDS: HumaLOG INSULIN (NovoLOG) PER UNIT SC ×5 (07:30→20:11)
[2017-08-05] MEDS: METOCLOPRAMIDE 5 MG TAB PO ×4 (07:30→16:59)
[2017-08-05] MEDS: LEVEMIR (INSULIN DETEMIR) 1 UNITS/0.01ML SC ×2 (09:28→20:11)
[2017-08-05] MEDS: CitaloPRAM (CeleXA) 20 MG TAB PO (09:29)
[2017-08-05] MEDS: FERROUS SULFATE 325MG TAB PO ×2 (09:29→20:10)
[2017-08-05] MEDS: PANTOPRAZOLE 40MG TAB (PROTONIX) PO ×2 (09:30→20:10)
[2017-08-05] MEDS: predniSONE 5 MG TAB PO (09:30)
[2017-08-05] MEDS: ATORVASTATIN 20 MG TAB PO (09:30)
[2017-08-05] MEDS: SENOKOT S TAB PO ×2 (09:30→20:10)
[2017-08-05] MEDS: DOCUSATE SODIUM 100 MG CAP PO ×2 (09:30→20:10)
[2017-08-05] MEDS: ASPIRIN 81 MG ENTERIC TAB PO (09:30)
[2017-08-05] MEDS: CLOPIDOGREL 75 MG TAB PO (09:30)
[2017-08-05] MEDS: GABAPENTIN 300 MG CAP PO ×3 (09:31→20:11)
[2017-08-05] MEDS: COSOPT OCUMETER PLUS 10ML (DORZOLAMIDE/TIMOLOL) OU ×2 (09:31→20:12)
[2017-08-05] MEDS: LIDOCAINE 5% (LIDODERM) PATCH TD (09:31)
[2017-08-05] MEDS: KETOCONAZOLE 2% CREAM TOP ×2 (09:32→20:12)
[2017-08-05 11:37] LABS: BEDSIDE GLUCOSE 350 MG/DL (70-105)
[2017-08-05 16:50] LABS: BEDSIDE GLUCOSE 334 MG/DL (70-105)
[2017-08-05] MEDS: ACETAMINOPHEN 500 MG TAB PO (20:10)
[2017-08-05] MEDS: **NOTE PATIENT COMMENT** MISC XX (20:12)
[2017-08-05] MEDS: LATANOPROST 0.005% OPHTH SOLN 2.5 ML OU (20:12)
[2017-08-05 20:58] LABS: BEDSIDE GLUCOSE 72 MG/DL (70-105)
[2017-08-06] MEDS: SODIUM CHLORIDE 0.9% INJ 10 ML SYR IV ×2 (05:32→18:00)
[2017-08-06 06:07] LABS: HEMATOCRIT 29.1 % (42.0-52.0); HEMOGLOBIN 9.7 g/dl (13.5-17.5); MEAN CORPUSCULAR HEMOGLOBIN 28.7 pg (27.0-33.0); MEAN CORPUSCULAR HGB CONC 33.3 g/dl (32.0-36.5); MEAN CORPUSCULAR VOLUME 86.1 fl (80.0-96.0); PLATELET COUNT, AUTOMATED 372 10^3/uL (150-450); RED BLOOD COUNT 3.38 10^6/uL (4.30-6.10); RED CELL DISTRIBUTION WIDTH 15.5 % (11.5-14.5); WHITE BLOOD COUNT 6.2 10^3/uL (4.0-10.0)
[2017-08-06 07:10] LABS: ALBUMIN 2.1 GM/DL (3.2-5.2); ANION GAP 7 MEQ/L (8-16); BLOOD UREA NITROGEN 10 MG/DL (7-18); CALCIUM LEVEL 9.1 MG/DL (8.5-10.1); CARBON DIOXIDE LEVEL 29 MEQ/L (21-32); CHLORIDE LEVEL 101 MEQ/L (98-107); CREATININE FOR GFR 0.87 MG/DL (0.70-1.30); GLOMERULAR FILTRATION RATE > 60.0 (>56); GLUCOSE, FASTING 315 MG/DL (70-100); SODIUM LEVEL 137 MEQ/L (136-145)
[2017-08-06] MEDS: HumaLOG INSULIN (NovoLOG) PER UNIT SC ×4 (08:42→22:08)
[2017-08-06] MEDS: PANTOPRAZOLE 40MG TAB (PROTONIX) PO ×2 (08:43→22:07)
[2017-08-06] MEDS: FERROUS SULFATE 325MG TAB PO ×2 (08:43→22:07)
[2017-08-06] MEDS: ASPIRIN 81 MG ENTERIC TAB PO (08:43)
[2017-08-06] MEDS: METOCLOPRAMIDE 5 MG TAB PO ×3 (08:43→17:30)
[2017-08-06] MEDS: CLOPIDOGREL 75 MG TAB PO (08:43)
[2017-08-06] MEDS: DOCUSATE SODIUM 100 MG CAP PO ×2 (08:43→22:07)
[2017-08-06] MEDS: LEVEMIR (INSULIN DETEMIR) 1 UNITS/0.01ML SC ×2 (08:43→22:08)
[2017-08-06] MEDS: GABAPENTIN 300 MG CAP PO ×4 (08:43→22:06)
[2017-08-06] MEDS: ATORVASTATIN 20 MG TAB PO (08:43)
[2017-08-06] MEDS: COSOPT OCUMETER PLUS 10ML (DORZOLAMIDE/TIMOLOL) OU ×2 (08:44→22:09)
[2017-08-06] MEDS: predniSONE 5 MG TAB PO (08:44)
[2017-08-06] MEDS: KETOCONAZOLE 2% CREAM TOP ×2 (08:44→22:09)
[2017-08-06] MEDS: SUCRALFATE 1 GM TAB PO ×4 (08:44→22:07)
[2017-08-06] MEDS: CitaloPRAM (CeleXA) 20 MG TAB PO (08:44)
[2017-08-06] MEDS: LIDOCAINE 5% (LIDODERM) PATCH TD (08:44)
[2017-08-06] MEDS: SENOKOT S TAB PO ×2 (08:44→22:07)
[2017-08-06 11:00] LABS: BEDSIDE GLUCOSE 374 MG/DL (70-105)
[2017-08-06] MEDS: HEPARIN SOD (PORCINE) 5000 UNITS/ML VIAL SQ ×2 (13:37→22:06)
[2017-08-06] MEDS: **NOTE PATIENT COMMENT** MISC XX (21:00)
[2017-08-06 21:48] LABS: BEDSIDE GLUCOSE 339 MG/DL (70-105)
[2017-08-06] MEDS: DIVALPROEX SPRINKLE 125 MG CAP PO (22:07)
[2017-08-06] MEDS: LATANOPROST 0.005% OPHTH SOLN 2.5 ML OU (22:09)
[2017-08-07] MEDS ORDERED: HALOPERIDOL 5 MG/ML VIAL (J1630) IM (02:45)
[2017-08-07] MEDS: HALOPERIDOL 5 MG/ML VIAL (J1630) IM (03:40)
[2017-08-07] MEDS: SODIUM CHLORIDE 0.9% INJ 10 ML SYR IV ×3 (06:31→21:41)
[2017-08-07 06:38] LABS: BEDSIDE GLUCOSE 73 MG/DL (70-105)
[2017-08-07] MEDS: HumaLOG INSULIN (NovoLOG) PER UNIT SC ×4 (07:30→21:17)
[2017-08-07 08:34] LABS: BASO % 0.6 % (0.0-1.0); EOS # 0.2 10^3/uL (0.0-0.50); EOS % 3.4 % (0.0-3.0); HEMATOCRIT 29.3 % (42.0-52.0); HEMOGLOBIN 9.8 g/dl (13.5-17.5); IMMATURE GRANULOCYTE % 0.3 % (0-3.0); LYMPH # 1.9 10^3/uL (1.5-4.5); LYMPH % 27.8 % (24.0-44.0); MEAN CORPUSCULAR HEMOGLOBIN 28.5 pg (27.0-33.0); MEAN CORPUSCULAR HGB CONC 33.4 g/dl (32.0-36.5); MEAN CORPUSCULAR VOLUME 85.2 fl (80.0-96.0); MONO # 0.6 10^3/uL (0.0-0.8); MONO % 9.1 % (0.0-5.0); NEUTROPHILS % 58.8 % (36.0-66.0); PLATELET COUNT, AUTOMATED 370 10^3/uL (150-450); RED BLOOD COUNT 3.44 10^6/uL (4.30-6.10); RED CELL DISTRIBUTION WIDTH 15.3 % (11.5-14.5); WHITE BLOOD COUNT 6.8 10^3/uL (4.0-10.0)
[2017-08-07 08:47] LABS: ANION GAP 6 MEQ/L (8-16); BLOOD UREA NITROGEN 8 MG/DL (7-18); CALCIUM LEVEL 9.2 MG/DL (8.5-10.1); CARBON DIOXIDE LEVEL 28 MEQ/L (21-32); CHLORIDE LEVEL 107 MEQ/L (98-107); CREATININE FOR GFR 0.84 MG/DL (0.70-1.30); GLOMERULAR FILTRATION RATE > 60.0 (>56); GLUCOSE, FASTING 68 MG/DL (70-100); POTASSIUM SERUM 3.6 MEQ/L (3.5-5.1); SODIUM LEVEL 141 MEQ/L (136-145)
[2017-08-07] MEDS: HEPARIN SOD (PORCINE) 5000 UNITS/ML VIAL SQ (09:00)
[2017-08-07] MEDS: ENOXAPARIN 30 MG/0.3 ML SYR (J1650) SC (09:00)
[2017-08-07] MEDS: LEVEMIR (INSULIN DETEMIR) 1 UNITS/0.01ML SC ×2 (09:00→21:18)
[2017-08-07] MEDS: ATORVASTATIN 20 MG TAB PO (10:08)
[2017-08-07] MEDS: LIDOCAINE 5% (LIDODERM) PATCH TD (10:08)
[2017-08-07] MEDS: SENOKOT S TAB PO ×2 (10:09→21:16)
[2017-08-07] MEDS: ASPIRIN 81 MG ENTERIC TAB PO (10:09)
[2017-08-07] MEDS: DIVALPROEX SPRINKLE 125 MG CAP PO ×3 (10:09→21:16)
[2017-08-07] MEDS: COSOPT OCUMETER PLUS 10ML (DORZOLAMIDE/TIMOLOL) OU ×2 (10:09→21:14)
[2017-08-07] MEDS: SUCRALFATE 1 GM TAB PO ×4 (10:09→21:16)
[2017-08-07] MEDS: CitaloPRAM (CeleXA) 20 MG TAB PO (10:09)
[2017-08-07] MEDS: predniSONE 5 MG TAB PO (10:09)
[2017-08-07] MEDS: GABAPENTIN 300 MG CAP PO ×3 (10:09→21:16)
[2017-08-07] MEDS: PANTOPRAZOLE 40MG TAB (PROTONIX) PO ×2 (10:09→21:16)
[2017-08-07] MEDS: DOCUSATE SODIUM 100 MG CAP PO ×2 (10:09→21:16)
[2017-08-07] MEDS: CLOPIDOGREL 75 MG TAB PO (10:09)
[2017-08-07] MEDS: METOCLOPRAMIDE 5 MG TAB PO ×3 (10:09→18:00)
[2017-08-07] MEDS: FERROUS SULFATE 325MG TAB PO ×2 (10:09→21:16)
[2017-08-07] MEDS: KETOCONAZOLE 2% CREAM TOP ×2 (10:10→21:19)
[2017-08-07 12:13] LABS: BEDSIDE GLUCOSE 324 MG/DL (70-105)
[2017-08-07] MEDS: LISINOPRIL 10 MG TAB PO (12:39)
[2017-08-07 14:21] LABS: BEDSIDE GLUCOSE 372 MG/DL (70-105)
[2017-08-07 16:33] LABS: BEDSIDE GLUCOSE 331 MG/DL (70-105)
[2017-08-07 20:19] LABS: BEDSIDE GLUCOSE 259 MG/DL (70-105)
[2017-08-07] MEDS: **NOTE PATIENT COMMENT** MISC XX (21:00)
[2017-08-07] MEDS: LATANOPROST 0.005% OPHTH SOLN 2.5 ML OU (21:15)
[2017-08-08] MEDS ORDERED: LORazepam 2 MG/ML VIAL (J2060) As Ordered (02:34)
[2017-08-08] MEDS: HALOPERIDOL 5 MG/ML VIAL (J1630) IM (02:35)
[2017-08-08] MEDS: LORazepam 2 MG/ML VIAL (J2060) IV (02:44)
[2017-08-08 06:22] LABS: BASO % 0.6 % (0.0-1.0); EOS # 0.2 10^3/uL (0.0-0.50); EOS % 2.9 % (0.0-3.0); HEMATOCRIT 26.6 % (42.0-52.0); IMMATURE GRANULOCYTE % 0.5 % (0-3.0); LYMPH # 1.9 10^3/uL (1.5-4.5); LYMPH % 28.6 % (24.0-44.0); MEAN CORPUSCULAR HEMOGLOBIN 28.9 pg (27.0-33.0); MEAN CORPUSCULAR HGB CONC 33.8 g/dl (32.0-36.5); MEAN CORPUSCULAR VOLUME 85.5 fl (80.0-96.0); MONO # 0.5 10^3/uL (0.0-0.8); MONO % 8.1 % (0.0-5.0); NEUTROPHILS # 3.9 10^3/uL (1.8-7.7); NEUTROPHILS % 59.3 % (36.0-66.0); PLATELET COUNT, AUTOMATED 344 10^3/uL (150-450); RED BLOOD COUNT 3.11 10^6/uL (4.30-6.10); RED CELL DISTRIBUTION WIDTH 15.3 % (11.5-14.5); WHITE BLOOD COUNT 6.6 10^3/uL (4.0-10.0)
[2017-08-08 06:39] LABS: ANION GAP 6 MEQ/L (8-16); BLOOD UREA NITROGEN 13 MG/DL (7-18); CALCIUM LEVEL 9.1 MG/DL (8.5-10.1); CARBON DIOXIDE LEVEL 28 MEQ/L (21-32); CHLORIDE LEVEL 104 MEQ/L (98-107); CREATININE FOR GFR 0.91 MG/DL (0.70-1.30); GLOMERULAR FILTRATION RATE > 60.0 (>56); GLUCOSE, FASTING 273 MG/DL (70-100); POTASSIUM SERUM 3.9 MEQ/L (3.5-5.1); SODIUM LEVEL 138 MEQ/L (136-145)
[2017-08-08 06:41] LABS: AMMONIA 53 uMOL/L (<32)
[2017-08-08] MEDS: SODIUM CHLORIDE 0.9% INJ 10 ML SYR IV ×2 (06:43→17:59)
[2017-08-08 08:14] LABS: PROLACTIN 55.8 NG/ML (2.1-17.7)
[2017-08-08] MEDS: HumaLOG INSULIN (NovoLOG) PER UNIT SC ×4 (09:37→21:00)
[2017-08-08] MEDS: GABAPENTIN 300 MG CAP PO ×3 (09:52→22:12)
[2017-08-08] MEDS: CitaloPRAM (CeleXA) 20 MG TAB PO (09:52)
[2017-08-08] MEDS: DOCUSATE SODIUM 100 MG CAP PO ×2 (09:52→22:12)
[2017-08-08] MEDS: ATORVASTATIN 20 MG TAB PO (09:52)
[2017-08-08] MEDS: PANTOPRAZOLE 40MG TAB (PROTONIX) PO ×2 (09:53→22:12)
[2017-08-08] MEDS: FERROUS SULFATE 325MG TAB PO ×2 (09:53→22:12)
[2017-08-08] MEDS: predniSONE 5 MG TAB PO (09:53)
[2017-08-08] MEDS: SUCRALFATE 1 GM TAB PO ×4 (09:53→22:12)
[2017-08-08] MEDS: FLUDROCORTISONE ACETATE 0.1 MG TAB PO (09:53)
[2017-08-08] MEDS: SENOKOT S TAB PO ×2 (09:53→22:12)
[2017-08-08] MEDS: DIVALPROEX SPRINKLE 125 MG CAP PO (09:53)
[2017-08-08] MEDS: METOCLOPRAMIDE 5 MG TAB PO ×3 (09:54→17:59)
[2017-08-08] MEDS: LISINOPRIL 10 MG TAB PO (09:54)
[2017-08-08] MEDS: CLOPIDOGREL 75 MG TAB PO (09:54)
[2017-08-08] MEDS: ASPIRIN 81 MG ENTERIC TAB PO (09:54)
[2017-08-08] MEDS: LEVEMIR (INSULIN DETEMIR) 1 UNITS/0.01ML SC ×2 (09:55→22:13)
[2017-08-08] MEDS: ENOXAPARIN 30 MG/0.3 ML SYR (J1650) SC (09:55)
[2017-08-08] MEDS: LIDOCAINE 5% (LIDODERM) PATCH TD (09:55)
[2017-08-08] MEDS: COSOPT OCUMETER PLUS 10ML (DORZOLAMIDE/TIMOLOL) OU ×2 (09:56→22:14)
[2017-08-08] MEDS: KETOCONAZOLE 2% CREAM TOP ×2 (09:56→22:14)
[2017-08-08] MEDS: LACTULOSE 20 GM/30 ML SYRUP UD PO ×2 (10:00→22:13)
[2017-08-08 13:08] LABS: BEDSIDE GLUCOSE 194 MG/DL (70-105)
[2017-08-08 17:38] LABS: BEDSIDE GLUCOSE 72 MG/DL (70-105)
[2017-08-08 20:35] LABS: BEDSIDE GLUCOSE 148 MG/DL (70-105)
[2017-08-08] MEDS: **NOTE PATIENT COMMENT** MISC XX (21:00)
[2017-08-08] MEDS: HALOPERIDOL 1 MG TAB PO (22:12)
[2017-08-08] MEDS: LATANOPROST 0.005% OPHTH SOLN 2.5 ML OU (22:14)
[2017-08-09] MEDS: SODIUM CHLORIDE 0.9% INJ 10 ML SYR IV ×2 (05:52→17:56)
[2017-08-09] MEDS ORDERED: HALOPERIDOL 5 MG/ML VIAL (J1630) IM (06:45)
[2017-08-09 06:49] LABS: BASO # 0.1 10^3/uL (0.0-0.2); BASO % 0.8 % (0.0-1.0); EOS # 0.2 10^3/uL (0.0-0.50); EOS % 3.3 % (0.0-3.0); HEMATOCRIT 28.6 % (42.0-52.0); HEMOGLOBIN 9.4 g/dl (13.5-17.5); IMMATURE GRANULOCYTE % 0.5 % (0-3.0); LYMPH # 2.2 10^3/uL (1.5-4.5); LYMPH % 36.3 % (24.0-44.0); MEAN CORPUSCULAR HEMOGLOBIN 28.7 pg (27.0-33.0); MEAN CORPUSCULAR HGB CONC 32.9 g/dl (32.0-36.5); MEAN CORPUSCULAR VOLUME 87.2 fl (80.0-96.0); MONO # 0.5 10^3/uL (0.0-0.8); MONO % 8.3 % (0.0-5.0); NEUTROPHILS # 3.1 10^3/uL (1.8-7.7); NEUTROPHILS % 50.8 % (36.0-66.0); PLATELET COUNT, AUTOMATED 350 10^3/uL (150-450); RED BLOOD COUNT 3.28 10^6/uL (4.30-6.10); RED CELL DISTRIBUTION WIDTH 15.9 % (11.5-14.5); WHITE BLOOD COUNT 6.1 10^3/uL (4.0-10.0)
[2017-08-09 07:12] LABS: AMMONIA 35 uMOL/L (<32)
[2017-08-09 07:13] LABS: ANION GAP 6 MEQ/L (8-16); BLOOD UREA NITROGEN 10 MG/DL (7-18); CALCIUM LEVEL 9.3 MG/DL (8.5-10.1); CARBON DIOXIDE LEVEL 28 MEQ/L (21-32); CHLORIDE LEVEL 106 MEQ/L (98-107); CREATININE FOR GFR 0.82 MG/DL (0.70-1.30); GLOMERULAR FILTRATION RATE > 60.0 (>56); GLUCOSE, FASTING 163 MG/DL (70-100); POTASSIUM SERUM 3.9 MEQ/L (3.5-5.1); SODIUM LEVEL 140 MEQ/L (136-145)
[2017-08-09] MEDS: LEVEMIR (INSULIN DETEMIR) 1 UNITS/0.01ML SC ×2 (07:55→22:10)
[2017-08-09] MEDS: LIDOCAINE 5% (LIDODERM) PATCH TD (07:56)
[2017-08-09] MEDS: HumaLOG INSULIN (NovoLOG) PER UNIT SC ×4 (07:56→22:12)
[2017-08-09] MEDS: KETOCONAZOLE 2% CREAM TOP ×2 (07:56→22:07)
[2017-08-09] MEDS: COSOPT OCUMETER PLUS 10ML (DORZOLAMIDE/TIMOLOL) OU ×2 (07:56→22:07)
[2017-08-09] MEDS: ENOXAPARIN 30 MG/0.3 ML SYR (J1650) SC (07:57)
[2017-08-09] MEDS: SUCRALFATE 1 GM TAB PO ×4 (07:58→22:06)
[2017-08-09] MEDS: PANTOPRAZOLE 40MG TAB (PROTONIX) PO ×2 (07:58→22:06)
[2017-08-09] MEDS: LACTULOSE 20 GM/30 ML SYRUP UD PO ×2 (07:58→22:06)
[2017-08-09] MEDS: GABAPENTIN 300 MG CAP PO ×3 (07:58→22:06)
[2017-08-09] MEDS: ATORVASTATIN 20 MG TAB PO (07:58)
[2017-08-09] MEDS: FLUDROCORTISONE ACETATE 0.1 MG TAB PO (07:59)
[2017-08-09] MEDS: METOCLOPRAMIDE 5 MG TAB PO ×3 (07:59→17:57)
[2017-08-09] MEDS: predniSONE 5 MG TAB PO (07:59)
[2017-08-09] MEDS: DOCUSATE SODIUM 100 MG CAP PO ×2 (07:59→22:06)
[2017-08-09] MEDS: CitaloPRAM (CeleXA) 20 MG TAB PO (07:59)
[2017-08-09] MEDS: SENOKOT S TAB PO ×2 (08:00→22:06)
[2017-08-09] MEDS: ASPIRIN 81 MG ENTERIC TAB PO (08:00)
[2017-08-09] MEDS: CLOPIDOGREL 75 MG TAB PO (08:00)
[2017-08-09] MEDS: FERROUS SULFATE 325MG TAB PO ×2 (08:00→22:06)
[2017-08-09] MEDS: LISINOPRIL 10 MG TAB PO (08:00)
[2017-08-09] MEDS: **NOTE PATIENT COMMENT** MISC XX (21:00)
[2017-08-09] MEDS: HALOPERIDOL 1 MG TAB PO (22:06)
[2017-08-09] MEDS: LATANOPROST 0.005% OPHTH SOLN 2.5 ML OU (22:07)
[2017-08-09 22:17] LABS: BEDSIDE GLUCOSE 233 MG/DL (70-105)
[2017-08-09 22:17] LABS: BEDSIDE GLUCOSE 188 MG/DL (70-105)
[2017-08-09 22:17] LABS: BEDSIDE GLUCOSE 276 MG/DL (70-105)
[2017-08-10] MEDS: ACETAMINOPHEN 500 MG TAB PO (02:40)
[2017-08-10] MEDS: SODIUM CHLORIDE 0.9% INJ 10 ML SYR IV ×2 (05:48→17:31)
[2017-08-10 05:52] LABS: BASO % 0.7 % (0.0-1.0); EOS # 0.3 10^3/uL (0.0-0.50); EOS % 4.5 % (0.0-3.0); HEMATOCRIT 26.4 % (42.0-52.0); HEMOGLOBIN 8.9 g/dl (13.5-17.5); IMMATURE GRANULOCYTE % 0.4 % (0-3.0); LYMPH # 2.1 10^3/uL (1.5-4.5); LYMPH % 37.6 % (24.0-44.0); MEAN CORPUSCULAR HGB CONC 33.7 g/dl (32.0-36.5); MONO # 0.4 10^3/uL (0.0-0.8); MONO % 7.9 % (0.0-5.0); NEUTROPHILS # 2.7 10^3/uL (1.8-7.7); NEUTROPHILS % 48.9 % (36.0-66.0); PLATELET COUNT, AUTOMATED 327 10^3/uL (150-450); RED BLOOD COUNT 3.07 10^6/uL (4.30-6.10); RED CELL DISTRIBUTION WIDTH 15.4 % (11.5-14.5); WHITE BLOOD COUNT 5.6 10^3/uL (4.0-10.0)
[2017-08-10 06:07] LABS: AMMONIA 32 uMOL/L (<32)
[2017-08-10 06:09] LABS: ANION GAP 8 MEQ/L (8-16); BLOOD UREA NITROGEN 13 MG/DL (7-18); CARBON DIOXIDE LEVEL 29 MEQ/L (21-32); CHLORIDE LEVEL 110 MEQ/L (98-107); CREATININE FOR GFR 0.92 MG/DL (0.70-1.30); GLOMERULAR FILTRATION RATE > 60.0 (>56); GLUCOSE, FASTING 57 MG/DL (70-100); POTASSIUM SERUM 3.7 MEQ/L (3.5-5.1); SODIUM LEVEL 147 MEQ/L (136-145)
[2017-08-10] MEDS: HumaLOG INSULIN (NovoLOG) PER UNIT SC ×4 (07:30→21:09)
[2017-08-10] MEDS: SUCRALFATE 1 GM TAB PO ×3 (09:01→17:28)
[2017-08-10] MEDS: METOCLOPRAMIDE 5 MG TAB PO ×3 (09:01→17:28)
[2017-08-10] MEDS: ATORVASTATIN 20 MG TAB PO (09:02)
[2017-08-10] MEDS: CLOPIDOGREL 75 MG TAB PO (09:02)
[2017-08-10] MEDS: SENOKOT S TAB PO ×2 (09:02→21:08)
[2017-08-10] MEDS: ASPIRIN 81 MG ENTERIC TAB PO (09:02)
[2017-08-10] MEDS: FERROUS SULFATE 325MG TAB PO ×2 (09:02→21:08)
[2017-08-10] MEDS: DOCUSATE SODIUM 100 MG CAP PO ×2 (09:02→21:08)
[2017-08-10] MEDS: LISINOPRIL 10 MG TAB PO (09:02)
[2017-08-10] MEDS: PANTOPRAZOLE 40MG TAB (PROTONIX) PO ×2 (09:02→21:08)
[2017-08-10] MEDS: LIDOCAINE 5% (LIDODERM) PATCH TD (09:03)
[2017-08-10] MEDS: predniSONE 5 MG TAB PO (09:03)
[2017-08-10] MEDS: ENOXAPARIN 30 MG/0.3 ML SYR (J1650) SC (09:03)
[2017-08-10] MEDS: GABAPENTIN 300 MG CAP PO ×3 (09:03→21:08)
[2017-08-10] MEDS: LACTULOSE 20 GM/30 ML SYRUP UD PO ×2 (09:03→21:08)
[2017-08-10] MEDS: KETOCONAZOLE 2% CREAM TOP ×2 (09:04→21:10)
[2017-08-10] MEDS: COSOPT OCUMETER PLUS 10ML (DORZOLAMIDE/TIMOLOL) OU ×2 (09:04→21:10)
[2017-08-10] MEDS: CitaloPRAM (CeleXA) 20 MG TAB PO (09:11)
[2017-08-10] MEDS: FLUDROCORTISONE ACETATE 0.1 MG TAB PO (10:13)
[2017-08-10] MEDS: LEVEMIR (INSULIN DETEMIR) 1 UNITS/0.01ML SC ×2 (10:14→21:09)
[2017-08-10 18:50] LABS: BEDSIDE GLUCOSE 165 MG/DL (70-105)
[2017-08-10 18:50] LABS: BEDSIDE GLUCOSE 234 MG/DL (70-105)
[2017-08-10 18:50] LABS: BEDSIDE GLUCOSE 239 MG/DL (70-105)
[2017-08-10] MEDS: **NOTE PATIENT COMMENT** MISC XX (21:00)
[2017-08-10 21:04] LABS: BEDSIDE GLUCOSE 421 MG/DL (70-105)
[2017-08-10] MEDS: HALOPERIDOL 1 MG TAB PO (21:08)
[2017-08-10] MEDS: LATANOPROST 0.005% OPHTH SOLN 2.5 ML OU (21:10)
[2017-08-11] MEDS: SODIUM CHLORIDE 0.9% INJ 10 ML SYR IV ×2 (05:15→17:43)
[2017-08-11 06:01] LABS: BASO % 0.7 % (0.0-1.0); EOS # 0.2 10^3/uL (0.0-0.50); HEMOGLOBIN 8.6 g/dl (13.5-17.5); IMMATURE GRANULOCYTE % 0.5 % (0-3.0); LYMPH # 2.1 10^3/uL (1.5-4.5); LYMPH % 37.3 % (24.0-44.0); MEAN CORPUSCULAR HEMOGLOBIN 28.8 pg (27.0-33.0); MEAN CORPUSCULAR HGB CONC 33.1 g/dl (32.0-36.5); MONO # 0.5 10^3/uL (0.0-0.8); MONO % 8.4 % (0.0-5.0); NEUTROPHILS # 2.8 10^3/uL (1.8-7.7); NEUTROPHILS % 50.1 % (36.0-66.0); PLATELET COUNT, AUTOMATED 318 10^3/uL (150-450); RED BLOOD COUNT 2.99 10^6/uL (4.30-6.10); RED CELL DISTRIBUTION WIDTH 15.7 % (11.5-14.5); WHITE BLOOD COUNT 5.6 10^3/uL (4.0-10.0)
[2017-08-11 06:11] LABS: AMMONIA 31 uMOL/L (<32)
[2017-08-11 06:15] LABS: ANION GAP 5 MEQ/L (8-16); BLOOD UREA NITROGEN 14 MG/DL (7-18); CALCIUM LEVEL 8.6 MG/DL (8.5-10.1); CARBON DIOXIDE LEVEL 28 MEQ/L (21-32); CHLORIDE LEVEL 109 MEQ/L (98-107); CREATININE FOR GFR 0.86 MG/DL (0.70-1.30); GLOMERULAR FILTRATION RATE > 60.0 (>56); GLUCOSE, FASTING 115 MG/DL (70-100); POTASSIUM SERUM 3.7 MEQ/L (3.5-5.1); SODIUM LEVEL 142 MEQ/L (136-145)
[2017-08-11] MEDS: LACTULOSE 20 GM/30 ML SYRUP UD PO ×2 (08:53→20:37)
[2017-08-11] MEDS: LEVEMIR (INSULIN DETEMIR) 1 UNITS/0.01ML SC ×2 (08:54→20:38)
[2017-08-11] MEDS: ATORVASTATIN 20 MG TAB PO (08:54)
[2017-08-11] MEDS: HumaLOG INSULIN (NovoLOG) PER UNIT SC ×4 (08:54→20:38)
[2017-08-11] MEDS: GABAPENTIN 300 MG CAP PO ×3 (08:54→20:37)
[2017-08-11] MEDS: CLOPIDOGREL 75 MG TAB PO (08:55)
[2017-08-11] MEDS: CitaloPRAM (CeleXA) 20 MG TAB PO (08:55)
[2017-08-11] MEDS: LISINOPRIL 10 MG TAB PO (08:55)
[2017-08-11] MEDS: FERROUS SULFATE 325MG TAB PO ×2 (08:55→20:37)
[2017-08-11] MEDS: METOCLOPRAMIDE 5 MG TAB PO ×3 (08:55→17:43)
[2017-08-11] MEDS: FLUDROCORTISONE ACETATE 0.1 MG TAB PO (08:55)
[2017-08-11] MEDS: SENOKOT S TAB PO ×2 (08:56→19:37)
[2017-08-11] MEDS: PANTOPRAZOLE 40MG TAB (PROTONIX) PO ×2 (08:56→20:37)
[2017-08-11] MEDS: predniSONE 5 MG TAB PO (08:56)
[2017-08-11] MEDS: DOCUSATE SODIUM 100 MG CAP PO ×2 (08:56→19:37)
[2017-08-11] MEDS: ENOXAPARIN 30 MG/0.3 ML SYR (J1650) SC (08:56)
[2017-08-11] MEDS: ASPIRIN 81 MG ENTERIC TAB PO (08:56)
[2017-08-11] MEDS: COSOPT OCUMETER PLUS 10ML (DORZOLAMIDE/TIMOLOL) OU ×2 (08:57→20:39)
[2017-08-11] MEDS: LIDOCAINE 5% (LIDODERM) PATCH TD (08:57)
[2017-08-11] MEDS: KETOCONAZOLE 2% CREAM TOP ×2 (08:57→20:39)
[2017-08-11 12:11] LABS: BEDSIDE GLUCOSE 255 MG/DL (70-105)
[2017-08-11 17:11] LABS: BEDSIDE GLUCOSE 166 MG/DL (70-105)
[2017-08-11] MEDS: HALOPERIDOL 1 MG TAB PO (20:37)
[2017-08-11 20:39] LABS: BEDSIDE GLUCOSE 202 MG/DL (70-105)
[2017-08-11] MEDS: LATANOPROST 0.005% OPHTH SOLN 2.5 ML OU (20:39)
[2017-08-11] MEDS: **NOTE PATIENT COMMENT** MISC XX (20:39)
[2017-08-12 04:24] LABS: BEDSIDE GLUCOSE 244 MG/DL (70-105)
[2017-08-12] MEDS: SODIUM CHLORIDE 0.9% INJ 10 ML SYR IV ×2 (06:00→17:23)
[2017-08-12 06:04] LABS: BEDSIDE GLUCOSE 229 MG/DL (70-105)
[2017-08-12] MEDS: LIDOCAINE 5% (LIDODERM) PATCH TD (08:18)
[2017-08-12] MEDS: LACTULOSE 20 GM/30 ML SYRUP UD PO ×2 (08:18→21:34)
[2017-08-12] MEDS: ATORVASTATIN 20 MG TAB PO (08:19)
[2017-08-12] MEDS: GABAPENTIN 300 MG CAP PO ×3 (08:19→21:34)
[2017-08-12] MEDS: LEVEMIR (INSULIN DETEMIR) 1 UNITS/0.01ML SC ×2 (08:19→21:36)
[2017-08-12] MEDS: LISINOPRIL 10 MG TAB PO (08:19)
[2017-08-12] MEDS: PANTOPRAZOLE 40MG TAB (PROTONIX) PO ×2 (08:19→21:34)
[2017-08-12] MEDS: CitaloPRAM (CeleXA) 20 MG TAB PO (08:19)
[2017-08-12] MEDS: HumaLOG INSULIN (NovoLOG) PER UNIT SC ×4 (08:19→21:36)
[2017-08-12] MEDS: DOCUSATE SODIUM 100 MG CAP PO ×2 (08:20→21:34)
[2017-08-12] MEDS: METOCLOPRAMIDE 5 MG TAB PO ×3 (08:20→17:23)
[2017-08-12] MEDS: predniSONE 5 MG TAB PO (08:20)
[2017-08-12] MEDS: SENOKOT S TAB PO ×2 (08:20→21:34)
[2017-08-12] MEDS: CLOPIDOGREL 75 MG TAB PO (08:20)
[2017-08-12] MEDS: ASPIRIN 81 MG ENTERIC TAB PO (08:20)
[2017-08-12] MEDS: FLUDROCORTISONE ACETATE 0.1 MG TAB PO (08:20)
[2017-08-12] MEDS: FERROUS SULFATE 325MG TAB PO ×2 (08:20→21:35)
[2017-08-12] MEDS: ENOXAPARIN 30 MG/0.3 ML SYR (J1650) SC (08:21)
[2017-08-12] MEDS: COSOPT OCUMETER PLUS 10ML (DORZOLAMIDE/TIMOLOL) OU ×2 (08:21→21:36)
[2017-08-12 12:07] LABS: BEDSIDE GLUCOSE 326 MG/DL (70-105)
[2017-08-12] MEDS: KETOCONAZOLE 2% CREAM TOP ×2 (12:09→21:35)
[2017-08-12 17:13] LABS: BEDSIDE GLUCOSE 341 MG/DL (70-105)
[2017-08-12 20:23] LABS: BEDSIDE GLUCOSE 375 MG/DL (70-105)
[2017-08-12] MEDS: **NOTE PATIENT COMMENT** MISC XX (21:00)
[2017-08-12] MEDS: HALOPERIDOL 1 MG TAB PO (21:35)
[2017-08-12] MEDS: LATANOPROST 0.005% OPHTH SOLN 2.5 ML OU (21:36)
[2017-08-13] MEDS: SODIUM CHLORIDE 0.9% INJ 10 ML SYR IV ×2 (06:11→16:41)
[2017-08-13 06:49] LABS: BEDSIDE GLUCOSE 87 MG/DL (70-105)
[2017-08-13] MEDS: HumaLOG INSULIN (NovoLOG) PER UNIT SC ×4 (06:57→20:24)
[2017-08-13] MEDS: LEVEMIR (INSULIN DETEMIR) 1 UNITS/0.01ML SC ×2 (08:27→20:23)
[2017-08-13] MEDS: LACTULOSE 20 GM/30 ML SYRUP UD PO ×2 (08:27→20:22)
[2017-08-13] MEDS: GABAPENTIN 300 MG CAP PO ×3 (08:27→20:22)
[2017-08-13] MEDS: ATORVASTATIN 20 MG TAB PO (08:27)
[2017-08-13] MEDS: ENOXAPARIN 30 MG/0.3 ML SYR (J1650) SC (08:27)
[2017-08-13] MEDS: LIDOCAINE 5% (LIDODERM) PATCH TD (08:27)
[2017-08-13] MEDS: CLOPIDOGREL 75 MG TAB PO (08:28)
[2017-08-13] MEDS: SENOKOT S TAB PO ×2 (08:28→20:22)
[2017-08-13] MEDS: CitaloPRAM (CeleXA) 20 MG TAB PO (08:28)
[2017-08-13] MEDS: PANTOPRAZOLE 40MG TAB (PROTONIX) PO ×2 (08:28→20:22)
[2017-08-13] MEDS: LISINOPRIL 10 MG TAB PO (08:28)
[2017-08-13] MEDS: ASPIRIN 81 MG ENTERIC TAB PO (08:28)
[2017-08-13] MEDS: DOCUSATE SODIUM 100 MG CAP PO ×2 (08:28→20:22)
[2017-08-13] MEDS: FLUDROCORTISONE ACETATE 0.1 MG TAB PO (08:28)
[2017-08-13] MEDS: FERROUS SULFATE 325MG TAB PO ×2 (08:28→20:22)
[2017-08-13] MEDS: predniSONE 5 MG TAB PO (08:28)
[2017-08-13] MEDS: KETOCONAZOLE 2% CREAM TOP ×2 (08:28→21:13)
[2017-08-13] MEDS: METOCLOPRAMIDE 5 MG TAB PO ×3 (08:28→16:41)
[2017-08-13] MEDS: COSOPT OCUMETER PLUS 10ML (DORZOLAMIDE/TIMOLOL) OU ×2 (08:29→20:22)
[2017-08-13 11:36] LABS: BEDSIDE GLUCOSE 409 MG/DL (70-105)
[2017-08-13 16:38] LABS: BEDSIDE GLUCOSE 102 MG/DL (70-105)
[2017-08-13 20:14] LABS: BEDSIDE GLUCOSE 340 MG/DL (70-105)
[2017-08-13] MEDS: HALOPERIDOL 1 MG TAB PO (20:22)
[2017-08-13] MEDS: LATANOPROST 0.005% OPHTH SOLN 2.5 ML OU (20:22)
[2017-08-13] MEDS: **NOTE PATIENT COMMENT** MISC XX (20:24)
[2017-08-14 05:43] LABS: BEDSIDE GLUCOSE 148 MG/DL (70-105)
[2017-08-14] MEDS: SODIUM CHLORIDE 0.9% INJ 10 ML SYR IV (05:56)
[2017-08-14] MEDS: METOCLOPRAMIDE 5 MG TAB PO (08:33)
[2017-08-14] MEDS: LACTULOSE 20 GM/30 ML SYRUP UD PO (08:33)
[2017-08-14] MEDS: LEVEMIR (INSULIN DETEMIR) 1 UNITS/0.01ML SC (08:33)
[2017-08-14] MEDS: DOCUSATE SODIUM 100 MG CAP PO (08:34)
[2017-08-14] MEDS: ASPIRIN 81 MG ENTERIC TAB PO (08:34)
[2017-08-14] MEDS: HumaLOG INSULIN (NovoLOG) PER UNIT SC (08:34)
[2017-08-14] MEDS: ENOXAPARIN 30 MG/0.3 ML SYR (J1650) SC (08:35)
[2017-08-14] MEDS: ATORVASTATIN 20 MG TAB PO (08:35)
[2017-08-14] MEDS: CitaloPRAM (CeleXA) 20 MG TAB PO (08:35)
[2017-08-14] MEDS: GABAPENTIN 300 MG CAP PO (08:36)
[2017-08-14] MEDS: CLOPIDOGREL 75 MG TAB PO (08:36)
[2017-08-14] MEDS: FLUDROCORTISONE ACETATE 0.1 MG TAB PO (08:36)
[2017-08-14] MEDS: LIDOCAINE 5% (LIDODERM) PATCH TD (08:36)
[2017-08-14] MEDS: PANTOPRAZOLE 40MG TAB (PROTONIX) PO (08:36)
[2017-08-14] MEDS: FERROUS SULFATE 325MG TAB PO (08:36)
[2017-08-14] MEDS: LISINOPRIL 10 MG TAB PO (08:36)
[2017-08-14] MEDS: predniSONE 5 MG TAB PO (08:36)
[2017-08-14] MEDS: SENOKOT S TAB PO (08:36)
[2017-08-14] MEDS: COSOPT OCUMETER PLUS 10ML (DORZOLAMIDE/TIMOLOL) OU (08:37)
== END 2017-08-14 09:25 | DRG 270 ==
LOC: M IRPRO 06:21 → M MS5PR 07-04 23:00 → M ICU 12:03
PROC: 0Y6Q0Z0 Detachment at Left 1st Toe, Complete, Open Approach (ICD-10-PCS; 2017-07-11 09:59)
PROC: 0Y6Y0Z0 Detachment at Left 5th Toe, Complete, Open Approach (ICD-10-PCS; 2017-07-11 09:59)
PROC: 0Y6W0Z0 Detachment at Left 4th Toe, Complete, Open Approach (ICD-10-PCS; 2017-07-11 09:59)
PROC: 0Y6U0Z0 Detachment at Left 3rd Toe, Complete, Open Approach (ICD-10-PCS; 2017-07-11 09:59)
PROC: 0Y6S0Z0 Detachment at Left 2nd Toe, Complete, Open Approach (ICD-10-PCS; 2017-07-11 09:59)
PROC: 04CL3ZZ Extirpation of Matter from Left Femoral Artery, Percutaneous Approach (ICD-10-PCS; principal; 2017-07-11 17:24)
PROC: 047L3DZ Dilation of Left Femoral Artery with Intraluminal Device, Percutaneous Approach (ICD-10-PCS; 2017-07-11 17:24)
PROC: 05HY33Z Insertion of Infusion Device into Upper Vein, Percutaneous Approach (ICD-10-PCS; 2017-07-11 17:24)
PROC: 0KBW0ZZ Excision of Left Foot Muscle, Open Approach (ICD-10-PCS; 2017-07-11 17:24)
PROC: 0Y6J0Z1 Detachment at Left Lower Leg, High, Open Approach (ICD-10-PCS; 2017-07-11 17:24)
PROC: B41GYZZ Fluoroscopy of Left Lower Extremity Arteries using Other Contrast (ICD-10-PCS; 2017-07-11 17:24)
PROC: 3E05317 Introduction of Other Thrombolytic into Peripheral Artery, Percutaneous Approach (ICD-10-PCS; 2017-07-11 17:24)
PROC: B41GYZZ Fluoroscopy of Left Lower Extremity Arteries using Other Contrast (ICD-10-PCS; 2017-07-11 17:24)
PROC: 0DB78ZX Excision of Stomach, Pylorus, Via Natural or Artificial Opening Endoscopic, Diagnostic (ICD-10-PCS; 2017-07-11 17:24)
PROC: 0DJD8ZZ Inspection of Lower Intestinal Tract, Via Natural or Artificial Opening Endoscopic (ICD-10-PCS; 2017-07-11 17:24)
DX: T82.514A Breakdown (mechanical) of infusion catheter, initial encounter (principal); K25.4 Chronic or unspecified gastric ulcer with hemorrhage; I70.262 Atherosclerosis of native arteries of extremities with gangrene, left leg; K92.0 Hematemesis; E72.20 Disorder of urea cycle metabolism, unspecified; E10.52 Type 1 diabetes mellitus with diabetic peripheral angiopathy with gangrene; I70.213 Atherosclerosis of native arteries of extremities with intermittent claudication, bilateral legs; M31.6 Other giant cell arteritis; R74.0 Nonspecific elevation of levels of transaminase and lactic acid dehydrogenase [LDH]; E10.40 Type 1 diabetes mellitus with diabetic neuropathy, unspecified; E10.621 Type 1 diabetes mellitus with foot ulcer; I95.1 Orthostatic hypotension; K64.8 Other hemorrhoids; L97.529 Non-pressure chronic ulcer of other part of left foot with unspecified severity; K63.89 Other specified diseases of intestine; K64.4 Residual hemorrhoidal skin tags; K20.9 Esophagitis, unspecified; I10 Essential (primary) hypertension; E83.42 Hypomagnesemia; E78.5 Hyperlipidemia, unspecified; K21.9 Gastro-esophageal reflux disease without esophagitis; D50.9 Iron deficiency anemia, unspecified; D63.8 Anemia in other chronic diseases classified elsewhere; F32.9 Major depressive disorder, single episode, unspecified; G43.909 Migraine, unspecified, not intractable, without status migrainosus; Z87.891 Personal history of nicotine dependence; Z96.41 Presence of insulin pump (external) (internal); Y82.9 Unspecified medical devices associated with adverse incidents; Z79.82 Long term (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; Z79.4 Long term (current) use of insulin; Z79.52 Long term (current) use of systemic steroids; Z79.899 Other long term (current) drug therapy; Z91.19 Patient's noncompliance with other medical treatment and regimen; Z86.718 Personal history of other venous thrombosis and embolism

== ENCOUNTER 2017-09-15 20:39 | Inpatient (IN) | payer MEDICARE, MEDICAID ==
[2017-09-15] MEDS: LATANOPROST 0.005% OPHTH SOLN 2.5 ML OU (02:30)
[2017-09-15] MEDS: HALOPERIDOL 1 MG TAB PO (03:10)
[2017-09-15] MEDS: HumaLOG INSULIN (NovoLOG) PER UNIT SC (21:25)
[2017-09-15] MEDS: NS 1,000 ML IV (21:30)
[2017-09-15 22:06] LABS: BASO % 0.4 % (0.0-1.0); EOS % 0.5 % (0.0-3.0); HEMATOCRIT 31.5 % (42.0-52.0); HEMOGLOBIN 10.9 g/dl (13.5-17.5); IMMATURE GRANULOCYTE % 0.4 % (0-3.0); LYMPH # 2.1 10^3/uL (1.5-4.5); LYMPH % 27.2 % (24.0-44.0); MEAN CORPUSCULAR HEMOGLOBIN 29.9 pg (27.0-33.0); MEAN CORPUSCULAR HGB CONC 34.6 g/dl (32.0-36.5); MEAN CORPUSCULAR VOLUME 86.5 fl (80.0-96.0); MONO # 0.8 10^3/uL (0.0-0.8); MONO % 10.6 % (0.0-5.0); NEUTROPHILS # 4.6 10^3/uL (1.8-7.7); NEUTROPHILS % 60.9 % (36.0-66.0); PLATELET COUNT, AUTOMATED 236 10^3/uL (150-450); RED BLOOD COUNT 3.64 10^6/uL (4.30-6.10); RED CELL DISTRIBUTION WIDTH 13.2 % (11.5-14.5); WHITE BLOOD COUNT 7.6 10^3/uL (4.0-10.0)
[2017-09-15 22:07] LABS: VENOUS BASE EXCESS 1.5 (-2.0-2.0); VENOUS HCO3 23.7 MEQ/L (23.0-27.0); VENOUS O2 SATURATION 99.6 % (60.0-80.0); VENOUS PARTIAL PRESSURE O2 175.8 mmHg (30.0-50.0); VENOUS PH 7.516 UNITS (7.330-7.430); VENOUS STANDARD HCO3 25.9 MEQ/L; VENOUS TOTAL CO2 24.6 MEQ/L (24.0-28.0)
[2017-09-15 22:20] LABS: INR 0.96; PROTHROMBIN TIME 12.9 SECONDS (12.4-14.5)
[2017-09-15 22:22] LABS: ESTIMATED AVERAGE GLUCOSE 183 MG/DL (60-110)
[2017-09-15 22:28] LABS: ACETONE/KETONE 16.78 MG/DL (<2.81); ALBUMIN 3.3 GM/DL (3.2-5.2); ALBUMIN/GLOBULIN RATIO 0.87 (1.00-1.93); ALKALINE PHOSPHATASE 170 U/L (45-117); ALT/SGPT 31 U/L (12-78); ANION GAP 13 MEQ/L (8-16); AST/SGOT 19 U/L (7-37); BILIRUBIN,DIRECT 0.3 MG/DL (0.0-0.2); BILIRUBIN,TOTAL 1.1 MG/DL (0.2-1.0); BLOOD UREA NITROGEN 22 MG/DL (7-18); C REACTIVE PROTEIN QUANTITATIV 6.48 MG/DL (0.00-0.30); CARBON DIOXIDE LEVEL 24 MEQ/L (21-32); CHLORIDE LEVEL 85 MEQ/L (98-107); CPK CREATINE PHOSPHOKINASE 60 U/L (39-308); CREATININE FOR GFR 1.41 MG/DL (0.70-1.30); MAGNESIUM LEVEL 1.7 MG/DL (1.8-2.4); MB/CK RELATIVE INDEX 1.66 (< OR =4); PHOSPHORUS LEVEL 3.9 MG/DL (2.5-4.9); POTASSIUM SERUM 4.7 MEQ/L (3.5-5.1); SODIUM LEVEL 122 MEQ/L (136-145); TOTAL PROTEIN 7.1 GM/DL (6.4-8.2); TROPONIN I < 0.02 NG/ML (< 0.10)
[2017-09-15 22:31] LABS: OSMOLALITY SERUM 311 MOSM/KG (275-295)
[2017-09-15 22:55] LABS: GLUCOSE, FASTING 812 MG/DL (70-100)
[2017-09-15] MEDS: INSULIN HUMAN REGULAR 100 UNITS in NS 99 ML IV (23:03)
[2017-09-15 23:11] LABS: ERYTHROCYTE SEDIMENTATION RATE 34 mm/hr (0-20)
[2017-09-15] MEDS: INSULIN IV RATE CHANGE DOCUMENTATION ML/HR XX (23:55)
[2017-09-16] MEDS: MAG SULF 1GM/100ML (MAG RUN) 1 GM in APPROPRIATE DILUENT 1 EA IV
[2017-09-16] MEDS ORDERED: ACETAMINOPHEN TAB 650MG DOSE (2X325MG) PO (00:15)
[2017-09-16] MEDS ORDERED: FLEET ENEMA PR (00:15)
[2017-09-16] MEDS ORDERED: BISACODYL 10 MG SUPP PR (00:15)
[2017-09-16] MEDS ORDERED: diphenhydrAMINE 25 MG CAP PO (00:30)
[2017-09-16 00:46] LABS: BEDSIDE GLUCOSE 371 MG/DL (70-105)
[2017-09-16 01:55] LABS: BEDSIDE GLUCOSE 407 MG/DL (70-105)
[2017-09-16 02:26] LABS: BEDSIDE GLUCOSE 432 MG/DL (70-105)
[2017-09-16] MEDS: NS 1,000 ML IV ×2 (02:26→08:06)
[2017-09-16 03:08] LABS: BEDSIDE GLUCOSE 364 MG/DL (70-105)
[2017-09-16 04:03] LABS: BASO % 0.3 % (0.0-1.0); EOS # 0.2 10^3/uL (0.0-0.50); EOS % 1.9 % (0.0-3.0); HEMOGLOBIN 10.6 g/dl (13.5-17.5); IMMATURE GRANULOCYTE % 0.4 % (0-3.0); LYMPH # 1.6 10^3/uL (1.5-4.5); LYMPH % 20.5 % (24.0-44.0); MEAN CORPUSCULAR HEMOGLOBIN 30.4 pg (27.0-33.0); MEAN CORPUSCULAR HGB CONC 35.3 g/dl (32.0-36.5); MONO % 12.8 % (0.0-5.0); NEUTROPHILS # 4.9 10^3/uL (1.8-7.7); NEUTROPHILS % 64.1 % (36.0-66.0); PLATELET COUNT, AUTOMATED 239 10^3/uL (150-450); RED BLOOD COUNT 3.49 10^6/uL (4.30-6.10); RED CELL DISTRIBUTION WIDTH 13.3 % (11.5-14.5); WHITE BLOOD COUNT 7.7 10^3/uL (4.0-10.0)
[2017-09-16 04:07] LABS: BEDSIDE GLUCOSE 274 MG/DL (70-105)
[2017-09-16] MEDS: INSULIN IV RATE CHANGE DOCUMENTATION ML/HR XX (04:08)
[2017-09-16 04:23] LABS: ANION GAP 10 MEQ/L (8-16); BLOOD UREA NITROGEN 20 MG/DL (7-18); CALCIUM LEVEL 8.8 MG/DL (8.5-10.1); CARBON DIOXIDE LEVEL 31 MEQ/L (21-32); CHLORIDE LEVEL 96 MEQ/L (98-107); GLOMERULAR FILTRATION RATE > 60.0 (>56); GLUCOSE, FASTING 280 MG/DL (70-100); POTASSIUM SERUM 3.9 MEQ/L (3.5-5.1); SODIUM LEVEL 137 MEQ/L (136-145)
[2017-09-16 05:11] LABS: BEDSIDE GLUCOSE 232 MG/DL (70-105)
[2017-09-16] MEDS ORDERED: GLUCAGON FOR INJ 1 MG VIAL (J1610) SC (06:00)
[2017-09-16] MEDS ORDERED: GLUCOSE 4 GM CHEW TABLET PO (06:00)
[2017-09-16] MEDS ORDERED: DEXTROSE 50% 50 ML SYRINGE IV (06:00)
[2017-09-16 06:18] LABS: BEDSIDE GLUCOSE 204 MG/DL (70-105)
[2017-09-16] MEDS: LEVEMIR (INSULIN DETEMIR) 1 UNITS/0.01ML SC (06:46)
[2017-09-16 07:39] LABS: BEDSIDE GLUCOSE > 600 MG/DL (70-105)
[2017-09-16 07:39] LABS: BEDSIDE GLUCOSE > 600 MG/DL (70-105)
[2017-09-16 08:05] LABS: BEDSIDE GLUCOSE 208 MG/DL (70-105)
[2017-09-16] MEDS: CLOPIDOGREL 75 MG TAB PO (08:25)
[2017-09-16] MEDS: GABAPENTIN 300 MG CAP PO ×2 (08:25→21:06)
[2017-09-16] MEDS: ATORVASTATIN 20 MG TAB PO (08:25)
[2017-09-16] MEDS: FERROUS SULFATE 325MG TAB PO ×2 (08:25→21:06)
[2017-09-16] MEDS: predniSONE 5 MG TAB PO (08:25)
[2017-09-16] MEDS: ASPIRIN 81 MG ENTERIC TAB PO (08:25)
[2017-09-16] MEDS: CitaloPRAM (CeleXA) 20 MG TAB PO (08:25)
[2017-09-16] MEDS: BRINZOLAMIDE 1 % OPHTH SUSP (AZOPT) 10ML OU ×2 (08:26→21:08)
[2017-09-16] MEDS: TIMOLOL MALEATE 0.5% OPHTH SOLN 5 ML OU ×2 (08:26→21:08)
[2017-09-16] MEDS: HumaLOG INSULIN (NovoLOG) PER UNIT SC ×4 (08:26→21:07)
[2017-09-16] MEDS: FLUDROCORTISONE ACETATE 0.1 MG TAB PO (08:27)
[2017-09-16] MEDS: ENOXAPARIN 40 MG/0.4 ML SYRINGE (J1650) SC (08:27)
[2017-09-16] MEDS: LIDOCAINE 5% (LIDODERM) PATCH TD (08:29)
[2017-09-16 11:25] LABS: BEDSIDE GLUCOSE 208 MG/DL (70-105)
[2017-09-16 16:29] LABS: BEDSIDE GLUCOSE 387 MG/DL (70-105)
[2017-09-16] MEDS: **NOTE PATIENT COMMENT** MISC XX (21:00)
[2017-09-16] MEDS: HALOPERIDOL 1 MG TAB PO (21:00)
[2017-09-16 21:07] LABS: BEDSIDE GLUCOSE 329 MG/DL (70-105)
[2017-09-16] MEDS: OMEPRAZOLE 20 MG CAP PO (21:07)
[2017-09-16] MEDS: LATANOPROST 0.005% OPHTH SOLN 2.5 ML OU (21:08)
[2017-09-17 05:21] LABS: BASO % 0.5 % (0.0-1.0); EOS # 0.2 10^3/uL (0.0-0.50); EOS % 2.5 % (0.0-3.0); HEMATOCRIT 29.6 % (42.0-52.0); HEMOGLOBIN 10.3 g/dl (13.5-17.5); IMMATURE GRANULOCYTE % 0.5 % (0-3.0); LYMPH % 30.6 % (24.0-44.0); MEAN CORPUSCULAR HEMOGLOBIN 30.2 pg (27.0-33.0); MEAN CORPUSCULAR HGB CONC 34.8 g/dl (32.0-36.5); MEAN CORPUSCULAR VOLUME 86.8 fl (80.0-96.0); MONO # 0.7 10^3/uL (0.0-0.8); MONO % 11.6 % (0.0-5.0); NEUTROPHILS # 3.5 10^3/uL (1.8-7.7); NEUTROPHILS % 54.3 % (36.0-66.0); PLATELET COUNT, AUTOMATED 236 10^3/uL (150-450); RED BLOOD COUNT 3.41 10^6/uL (4.30-6.10); WHITE BLOOD COUNT 6.4 10^3/uL (4.0-10.0)
[2017-09-17 05:38] LABS: ANION GAP 6 MEQ/L (8-16); BLOOD UREA NITROGEN 19 MG/DL (7-18); CALCIUM LEVEL 8.8 MG/DL (8.5-10.1); CARBON DIOXIDE LEVEL 29 MEQ/L (21-32); CHLORIDE LEVEL 105 MEQ/L (98-107); CREATININE FOR GFR 0.89 MG/DL (0.70-1.30); GLOMERULAR FILTRATION RATE > 60.0 (>56); GLUCOSE, FASTING 159 MG/DL (70-100); MAGNESIUM LEVEL 1.8 MG/DL (1.8-2.4); POTASSIUM SERUM 3.7 MEQ/L (3.5-5.1); SODIUM LEVEL 140 MEQ/L (136-145)
[2017-09-17] MEDS: HumaLOG INSULIN (NovoLOG) PER UNIT SC ×2 (08:19→12:31)
[2017-09-17] MEDS: LEVEMIR (INSULIN DETEMIR) 1 UNITS/0.01ML SC (09:22)
[2017-09-17] MEDS: ENOXAPARIN 40 MG/0.4 ML SYRINGE (J1650) SC (09:22)
[2017-09-17] MEDS: ATORVASTATIN 20 MG TAB PO (09:23)
[2017-09-17] MEDS: GABAPENTIN 300 MG CAP PO (09:23)
[2017-09-17] MEDS: FLUDROCORTISONE ACETATE 0.1 MG TAB PO (09:23)
[2017-09-17] MEDS: FERROUS SULFATE 325MG TAB PO (09:23)
[2017-09-17] MEDS: ASPIRIN 81 MG ENTERIC TAB PO (09:24)
[2017-09-17] MEDS: CLOPIDOGREL 75 MG TAB PO (09:24)
[2017-09-17] MEDS: CitaloPRAM (CeleXA) 20 MG TAB PO (09:24)
[2017-09-17] MEDS: predniSONE 5 MG TAB PO (09:24)
[2017-09-17] MEDS: BRINZOLAMIDE 1 % OPHTH SUSP (AZOPT) 10ML OU (09:26)
[2017-09-17] MEDS: TIMOLOL MALEATE 0.5% OPHTH SOLN 5 ML OU (09:26)
[2017-09-17] MEDS: LIDOCAINE 5% (LIDODERM) PATCH TD (09:27)
[2017-09-17 12:22] LABS: BEDSIDE GLUCOSE 327 MG/DL (70-105)
== END 2017-09-17 16:56 | disposition home health service (06) | DRG 920 ==
LOC: M ED INP 09-16 00:06 → M ICU 09-16 02:08 → M ED 20:39
DX: T85.624A Displacement of insulin pump, initial encounter (principal); E87.1 Hypo-osmolality and hyponatremia; N17.9 Acute kidney failure, unspecified; E10.65 Type 1 diabetes mellitus with hyperglycemia; I10 Essential (primary) hypertension; K21.9 Gastro-esophageal reflux disease without esophagitis; I95.1 Orthostatic hypotension; M31.6 Other giant cell arteritis; F32.9 Major depressive disorder, single episode, unspecified; I73.9 Peripheral vascular disease, unspecified; Z79.899 Other long term (current) drug therapy; Z79.82 Long term (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; Z79.4 Long term (current) use of insulin; Z86.718 Personal history of other venous thrombosis and embolism; E78.5 Hyperlipidemia, unspecified; Z87.891 Personal history of nicotine dependence; R21 Rash and other nonspecific skin eruption; Y84.8 Other medical procedures as the cause of abnormal reaction of the patient, or of later complication, without mention of misadventure at the time of the procedure

== ENCOUNTER → 2017-09-21 | Outpatient (REF) | payer MEDICARE, MEDICAID | LOC: M SFHCLERA 13:51 | DX: R01.1 Cardiac murmur, unspecified (principal) ==

== ENCOUNTER → 2017-09-21 | Outpatient (REF) | payer MEDICARE, MEDICAID | LOC: M SFHCLERA 15:59 | DX: R01.1 Cardiac murmur, unspecified (principal) | CPT/HCPCS: 87040 ==

== ENCOUNTER → 2017-09-27 | Outpatient (CLI) | payer MEDICARE, MEDICAID | LOC: M CARPUL 11:19 | DX: R01.1 Cardiac murmur, unspecified (principal); I35.8 Other nonrheumatic aortic valve disorders | CPT/HCPCS: 93306 ==

== ENCOUNTER 2017-10-04 11:38 | Emergency (ER) | payer MEDICARE, MEDICAID ==
[2017-10-04] MEDS ORDERED: INSULIN IV RATE CHANGE DOCUMENTATION ML/HR XX (12:15)
[2017-10-04] MEDS: HumuLIN R (REGULAR) INSULIN (NovoLIN R) **100U/ML** PER UNIT IV (12:44)
[2017-10-04] MEDS: NS 1,000 ML IV ×2 (12:44→16:20)
[2017-10-04 13:03] LABS: VENOUS BASE EXCESS -0.2 (-2.0-2.0); VENOUS HCO3 26.1 MEQ/L (23.0-27.0); VENOUS PARTIAL PRESSURE CO2 49.6 mmHg (38.0-50.0); VENOUS PARTIAL PRESSURE O2 63.1 mmHg (30.0-50.0); VENOUS PH 7.339 UNITS (7.330-7.430); VENOUS STANDARD HCO3 24.2 MEQ/L; VENOUS TOTAL CO2 27.6 MEQ/L (24.0-28.0)
[2017-10-04 13:15] LABS: BASO % 0.4 % (0.0-1.0); EOS # 0.1 10^3/uL (0.0-0.50); EOS % 1.1 % (0.0-3.0); HEMATOCRIT 33.5 % (42.0-52.0); HEMOGLOBIN 11.4 g/dl (13.5-17.5); IMMATURE GRANULOCYTE % 0.6 % (0-3.0); LYMPH # 1.8 10^3/uL (1.5-4.5); LYMPH % 17.7 % (24.0-44.0); MEAN CORPUSCULAR HEMOGLOBIN 30.4 pg (27.0-33.0); MEAN CORPUSCULAR VOLUME 89.3 fl (80.0-96.0); MONO # 0.4 10^3/uL (0.0-0.8); MONO % 3.5 % (0.0-5.0); NEUTROPHILS # 7.7 10^3/uL (1.8-7.7); NEUTROPHILS % 76.7 % (36.0-66.0); PLATELET COUNT, AUTOMATED 236 10^3/uL (150-450); RED BLOOD COUNT 3.75 10^6/uL (4.30-6.10); RED CELL DISTRIBUTION WIDTH 13.2 % (11.5-14.5)
[2017-10-04] MEDS: INSULIN HUMAN REGULAR 100 UNITS in NS 99 ML IV (13:22)
[2017-10-04 13:26] LABS: ALBUMIN 3.3 GM/DL (3.2-5.2); ALBUMIN/GLOBULIN RATIO 0.94 (1.00-1.93); ALKALINE PHOSPHATASE 140 U/L (45-117); ALT/SGPT 40 U/L (12-78); ANION GAP 11 MEQ/L (8-16); AST/SGOT 19 U/L (7-37); BILIRUBIN,DIRECT 0.2 MG/DL (0.0-0.2); BILIRUBIN,TOTAL 0.6 MG/DL (0.2-1.0); BLOOD UREA NITROGEN 32 MG/DL (7-18); CALCIUM LEVEL 8.9 MG/DL (8.5-10.1); CARBON DIOXIDE LEVEL 27 MEQ/L (21-32); CHLORIDE LEVEL 95 MEQ/L (98-107); CREATININE FOR GFR 1.89 MG/DL (0.70-1.30); GLOMERULAR FILTRATION RATE 39.2 (>56); LIPASE 68 U/L (73-393); POTASSIUM SERUM 4.6 MEQ/L (3.5-5.1); SODIUM LEVEL 133 MEQ/L (136-145); TOTAL PROTEIN 6.8 GM/DL (6.4-8.2)
[2017-10-04 13:44] LABS: GLUCOSE, FASTING 431 MG/DL (70-100)
[2017-10-04 13:46] LABS: ESTIMATED AVERAGE GLUCOSE 203 MG/DL (60-110); HEMOGLOBIN A1c 8.7 %
[2017-10-04 13:52] LABS: BEDSIDE GLUCOSE 414 MG/DL (70-105)
[2017-10-04 13:56] LABS: BEDSIDE GLUCOSE 361 MG/DL (70-105)
[2017-10-04 14:21] LABS: VENOUS BASE EXCESS -0.8 (-2.0-2.0); VENOUS HCO3 24.8 MEQ/L (23.0-27.0); VENOUS O2 SATURATION 99.5 % (60.0-80.0); VENOUS PARTIAL PRESSURE CO2 44.5 mmHg (38.0-50.0); VENOUS PH 7.364 UNITS (7.330-7.430); VENOUS STANDARD HCO3 23.9 MEQ/L; VENOUS TOTAL CO2 26.2 MEQ/L (24.0-28.0)
[2017-10-04 14:56] LABS: BEDSIDE GLUCOSE 309 MG/DL (70-105)
[2017-10-04 15:55] LABS: BEDSIDE GLUCOSE 258 MG/DL (70-105)
[2017-10-04 17:12] LABS: BEDSIDE GLUCOSE 163 MG/DL (70-105)
[2017-10-04 18:34] LABS: BEDSIDE GLUCOSE 209 MG/DL (70-105)
== END 2017-10-04 18:50 | disposition home or self-care (01) ==
LOC: M ED 11:38
DX: E11.65 Type 2 diabetes mellitus with hyperglycemia (principal); T85.614A Breakdown (mechanical) of insulin pump, initial encounter; T38.3X6A Underdosing of insulin and oral hypoglycemic [antidiabetic] drugs, initial encounter; Y63.6 Underdosing and nonadministration of necessary drug, medicament or biological substance; Z87.891 Personal history of nicotine dependence; Z79.899 Other long term (current) drug therapy; Z79.82 Long term (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; Z79.02 Long term (current) use of antithrombotics/antiplatelets; Z79.52 Long term (current) use of systemic steroids
CPT/HCPCS: 83690

== ENCOUNTER → 2017-12-13 | Outpatient (REF) | payer MEDICARE, MEDICAID ==
[2017-12-13 17:50] LABS: ALBUMIN 3.7 GM/DL (3.2-5.2); ALBUMIN/GLOBULIN RATIO 1.09 (1.00-1.93); ALKALINE PHOSPHATASE 97 U/L (45-117); ALT/SGPT 41 U/L (12-78); ANION GAP 5 MEQ/L (8-16); AST/SGOT 30 U/L (7-37); BILIRUBIN,TOTAL 0.6 MG/DL (0.2-1.0); BLOOD UREA NITROGEN 13 MG/DL (7-18); CALCIUM LEVEL 9.3 MG/DL (8.5-10.1); CARBON DIOXIDE LEVEL 30 MEQ/L (21-32); CHLORIDE LEVEL 104 MEQ/L (98-107); CREATININE FOR GFR 1.44 MG/DL (0.70-1.30); FREE T4 0.69 NG/DL (0.76-1.46); GLOMERULAR FILTRATION RATE 53.6 (>56); GLUCOSE, FASTING 262 MG/DL (70-100); POTASSIUM SERUM 5.1 MEQ/L (3.5-5.1); SODIUM LEVEL 139 MEQ/L (136-145); TOTAL PROTEIN 7.1 GM/DL (6.4-8.2)
[2017-12-13 19:35] LABS: BASO % 0.6 % (0.0-1.0); EOS # 0.1 10^3/uL (0.0-0.50); HEMATOCRIT 34.2 % (42.0-52.0); HEMOGLOBIN 11.5 g/dl (13.5-17.5); IMMATURE GRANULOCYTE % 0.4 % (0-3.0); LYMPH # 1.7 10^3/uL (1.5-4.5); LYMPH % 24.6 % (24.0-44.0); MEAN CORPUSCULAR HEMOGLOBIN 31.3 pg (27.0-33.0); MEAN CORPUSCULAR HGB CONC 33.6 g/dl (32.0-36.5); MEAN CORPUSCULAR VOLUME 93.2 fl (80.0-96.0); MONO # 0.6 10^3/uL (0.0-0.8); MONO % 9.1 % (0.0-5.0); NEUTROPHILS # 4.5 10^3/uL (1.8-7.7); NEUTROPHILS % 63.3 % (36.0-66.0); PLATELET COUNT, AUTOMATED 238 10^3/uL (150-450); RED BLOOD COUNT 3.67 10^6/uL (4.30-6.10); RED CELL DISTRIBUTION WIDTH 13.4 % (11.5-14.5); WHITE BLOOD COUNT 7.1 10^3/uL (4.0-10.0)
== END ==
LOC: M SFHCLERA 14:11
DX: R53.83 Other fatigue (principal)
CPT/HCPCS: 84443

== ENCOUNTER → 2018-01-22 | Outpatient (CLI) | payer MEDICARE, MEDICAID ==
[2018-01-22 17:40] LABS: BASO % 0.5 % (0.0-1.0); EOS # 0.2 10^3/uL (0.0-0.50); EOS % 1.8 % (0.0-3.0); HEMATOCRIT 35.6 % (42.0-52.0); HEMOGLOBIN 11.8 g/dl (13.5-17.5); IMMATURE GRANULOCYTE % 0.5 % (0-3.0); LYMPH % 23.9 % (24.0-44.0); MEAN CORPUSCULAR HEMOGLOBIN 31.5 pg (27.0-33.0); MEAN CORPUSCULAR HGB CONC 33.1 g/dl (32.0-36.5); MEAN CORPUSCULAR VOLUME 94.9 fl (80.0-96.0); MONO # 0.7 10^3/uL (0.0-0.8); NEUTROPHILS # 5.5 10^3/uL (1.8-7.7); NEUTROPHILS % 65.3 % (36.0-66.0); PLATELET COUNT, AUTOMATED 201 10^3/uL (150-450); RED BLOOD COUNT 3.75 10^6/uL (4.30-6.10); RED CELL DISTRIBUTION WIDTH 12.6 % (11.5-14.5); WHITE BLOOD COUNT 8.4 10^3/uL (4.0-10.0)
[2018-01-22 18:56] LABS: ERYTHROCYTE SEDIMENTATION RATE 8 mm/hr (0-20)
[2018-01-22 21:54] LABS: ALBUMIN 3.8 GM/DL (3.2-5.2); ALBUMIN/GLOBULIN RATIO 1.31 (1.00-1.93); ALKALINE PHOSPHATASE 92 U/L (45-117); ALT/SGPT 39 U/L (12-78); ANION GAP 9 MEQ/L (8-16); AST/SGOT 20 U/L (7-37); BILIRUBIN,TOTAL 0.5 MG/DL (0.2-1.0); BLOOD UREA NITROGEN 21 MG/DL (7-18); C REACTIVE PROTEIN QUANTITATIV < 0.30 MG/DL (0.00-0.30); CALCIUM LEVEL 9.1 MG/DL (8.5-10.1); CARBON DIOXIDE LEVEL 26 MEQ/L (21-32); CHLORIDE LEVEL 103 MEQ/L (98-107); CREATININE FOR GFR 1.51 MG/DL (0.70-1.30); GLOMERULAR FILTRATION RATE 50.8 (>56); GLUCOSE, FASTING 341 MG/DL (70-100); POTASSIUM SERUM 4.4 MEQ/L (3.5-5.1); SODIUM LEVEL 138 MEQ/L (136-145); TOTAL PROTEIN 6.7 GM/DL (6.4-8.2)
[2018-01-22 23:26] LABS: ESTIMATED AVERAGE GLUCOSE 169 MG/DL (60-110); HEMOGLOBIN A1c 7.5 %
== END ==
LOC: M LRY 11:15
DX: E10.65 Type 1 diabetes mellitus with hyperglycemia (principal); M31.6 Other giant cell arteritis
CPT/HCPCS: 80053

== ENCOUNTER → 2018-05-07 | Outpatient (CLI) | payer MEDICARE, MEDICAID ==
[~2018-05-07] MED LIST changes: -ACETAMINOPHEN 325 MG TAB As Ordered; +ADVO31MI2 XX; +ADVOKIT XX; +ADVOMIS4 XX; +AMLO5TAB6 PO; +ASPI81TA24 PO; +ASPI81TA85 PO; +ATOR40TA75 PO; +AUGM875T28 PO; +AZOP0.2S OU; +BACL1TAB9; +BACT800T5 PO; +BISA10SU PR; +CAPT62TA PO; +CELE20TA PO; +CITA20TA4 PO; +CITA40TA4 PO; +CLEO300C2 PO; +CLOP75TA2 PO; -CLOPIDOGREL 75 MG TAB As Ordered; +COLA100C5 PO; +CYCL10TA PO; +CYCL5TAB PO; +DIPHCR TOP; +DORZ2SOL5 OU; +DORZOL/TIMOL; +ELIQ5TAB PO; +FERR1TAB8 PO; +FERR325T3 PO; +FLEEENE4 PR; +FLON1SPR; +FLUD0.1T PO; +GABA-843 PO; +GAVISOL3; +GLUC1CAP10 PO; +GLUC1KIT INJ; +HALD5INJ2 IM; +HALO1TA PO; -HEPARIN 1,000 UNITS/ML 10ML VIAL (FOR RADIOLOGY& DIALYSIS ONLY) As Ordered; +INSUDET SC; +INSUH10VL SC; +INSUHUMDS SC; -ISOVUE-300 61% 50ML VIAL (Q9967) As Ordered; +KETO2CR TOP; +KPHOS50TA PO; +LACT10SO3 PO; +LANS15CA PO; +LATA5OPD OU; +LIDO5TD TD; +LISI10TA4 PO; +MAXA5TAB10 PO; +METH1TAB40 PO; +METO5TAB2 PO; -MIDAZOLAM INJ 2 MG/2 ML VIAL (J2250) As Ordered; +MIDO2.5T PO; +MIDO5TA PO; +NORCOTAB PO; +OMEP20CA3; +OMEP20CA3 PO; +OMEP40CA2 PO; +ONDA4TAB6; +PANT40TA3 PO; +PRED10TA2; +PRED10TA2 PO; +PRED1TABL PO; +PRED20TA PO; +PRED5TA; +PRED5TA PO; +PROT1TAB2 PO; +RIZA5TAB PO; +SULF1TAB72; +SULF1TAB72 PO; +TIMO0.5S29 OU; +TIMOXEOPD; +TRAM50TA2 PO; +TYLE500T78 PO; +ZITHTAB PO; +ZOFR4TAB14 PO; -fentaNYL 100 MCG/2 ML INJECTION (J3010) As Ordered
--- NOTE | 2018-05-07 18:17 | REP ---
Left tib-fib: Two views: History: Injury. Comparison study is a knee radiograph from April 02, 2017. Findings: The patient is status post [id number] amputation. Prominent vascular calcifications noted. No soft tissue gas is seen. No fracture is noted. Impression: Status post a [id number] amputation. No fracture, soft tissue gas or opaque foreign body seen. Prominent vascular calcification. Electronically Signed by Terrell Pichardo MD 05/07/2018 08:42 P
== END ==
LOC: M LRY 15:42
PROVIDERS: ATTEND Nurse Practitioner Family
DX: I70.202 Unspecified atherosclerosis of native arteries of extremities, left leg (principal); S89.92XA Unspecified injury of left lower leg, initial encounter; W18.30XA Fall on same level, unspecified, initial encounter; Z89.512 Acquired absence of left leg below knee; Y92.002 Bathroom of unspecified non-institutional (private) residence as the place of occurrence of the external cause
CPT/HCPCS: 73590; G0463

== ENCOUNTER → 2018-08-21 | Outpatient (CLI) | payer MEDICARE, MEDICAID ==
[~2018-08-21] MED LIST changes: -CITA20TA4 PO; +CITA20TA6 PO; +HYDR-3715 PO; +LATA0.0013 OU; -LATA5OPD OU; -NORCOTAB PO
[2018-08-21 15:06] LABS: BASO % 0.5 % (0.0-1.0); EOS # 0.2 10^3/uL (0.0-0.50); EOS % 1.9 % (0.0-3.0); HEMATOCRIT 39.1 % (42.0-52.0); HEMOGLOBIN 13.4 g/dl (13.5-17.5); LYMPH # 1.8 10^3/uL (1.5-4.5); LYMPH % 22.6 % (24.0-44.0); MEAN CORPUSCULAR HEMOGLOBIN 32.8 pg (27.0-33.0); MEAN CORPUSCULAR HGB CONC 34.3 g/dl (32.0-36.5); MEAN CORPUSCULAR VOLUME 95.8 fl (80.0-96.0); MONO # 0.7 10^3/uL (0.0-0.8); MONO % 9.3 % (0.0-5.0); NEUTROPHILS # 5.2 10^3/uL (1.8-7.7); NEUTROPHILS % 65.1 % (36.0-66.0); PLATELET COUNT, AUTOMATED 223 10^3/uL (150-450); RED BLOOD COUNT 4.08 10^6/uL (4.30-6.10)
[2018-08-21 15:35] LABS: CREATININE FOR GFR 1.57 MG/DL (0.70-1.30); GLOMERULAR FILTRATION RATE 48.4 (>56); POTASSIUM SERUM 4.5 MEQ/L (3.5-5.1)
== END ==
LOC: M LAB 14:28
PROVIDERS: ATTEND Surgery Vascular Surgery
DX: I70.261 Atherosclerosis of native arteries of extremities with gangrene, right leg (principal); L97.929 Non-pressure chronic ulcer of unspecified part of left lower leg with unspecified severity; I70.248 Atherosclerosis of native arteries of left leg with ulceration of other part of lower leg

== ENCOUNTER → 2018-09-26 | Outpatient (CLI) | payer MEDICARE, MEDICAID ==
[~2018-09-26] MED LIST changes: +BUPIVACAINE HCL 0.5% 10 ML VIAL As Ordered ONE; +HEPARIN 1,000 UNITS/ML 10ML VIAL (FOR RADIOLOGY& DIALYSIS ONLY) As Ordered ONE; +ISOVUE-300 61% 50ML VIAL (Q9967) As Ordered ONE; +LIDOCAINE 2% MDV 20 ML VIAL As Ordered ONE; +MIDAZOLAM INJ 2 MG/2 ML VIAL (J2250) As Ordered ONE; -OMEP20CA3; -OMEP20CA3 PO; +OMEP20CA4; +OMEP20CA4 PO; +diphenhydrAMINE INJ 50MG/ML VIAL (J1200) As Ordered ONE; +fentaNYL 100 MCG/2 ML INJECTION (J3010) As Ordered ONE
--- NOTE | 2018-10-09 08:06 | REPIR ---
DATE OF PROCEDURE: 09/26/2018 ATTENDING SURGEON: Dr. Lester Echevarria L D RN: Leigh Caro PREOPERATIVE DIAGNOSES: Nonhealing right toe ulcer, right foot pain, chronic renal insufficiency, diabetes mellitus. POSTOPERATIVE DIAGNOSES: Nonhealing right toe ulcer, right foot pain, chronic renal insufficiency, diabetes mellitus. PROCEDURE: Left common femoral arterial cannulation, selective right common femoral artery catheter placement with right lower extremity angiogram, selective right superficial femoral artery with catheter placement of right lower extremity angiogram, selective right popliteal artery catheter placement with right lower extremity angiogram, Mynx closure of the left common femoral arteriotomy. INDICATION: The patient is a 58-year-old male with pain and a nonhealing ulcer in his right foot with nonpalpable pulses. The patient will undergo angiography with possible angioplasty, stent and/or atherectomy. ANESTHESIA: Local with 20 mL of 2% lidocaine. FLUORO TIME: 0.7 minutes. CONTRAST: 6 mL of Isovue-300. HEPARIN: None. COMPLICATIONS: None. DRAINS: None. SPECIMENS: None. IMPLANTS: Left common femoral arteriotomy closure with a Mynx closure device. PROCEDURE: The patient was taken to the angiography suite, placed on the angiography table and then prepped and draped in the standard surgical fashion. 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 The catheters and wires were removed. A Mynx closure device was used close the arteriotomy in the left common femoral artery with additional 10 minutes adjunctive pressure applied for hemostasis. Dressings were then applied. The patient tolerated the procedure well. All instrument, sponge, and needle counts were correct at the end the case. There were no complications. Dr. Echevarria was present for and directed the entire case. The patient was transferred to the holding area and subsequently discharged in stable condition.
== END ==
LOC: M IRPRO 06:29
PROVIDERS: ATTEND Surgery Vascular Surgery
DX: I70.235 Atherosclerosis of native arteries of right leg with ulceration of other part of foot (principal); L98.499 Non-pressure chronic ulcer of skin of other sites with unspecified severity; E11.621 Type 2 diabetes mellitus with foot ulcer; L40.9 Psoriasis, unspecified; F31.9 Bipolar disorder, unspecified; E27.40 Unspecified adrenocortical insufficiency; Z86.718 Personal history of other venous thrombosis and embolism; Z86.011 Personal history of benign neoplasm of the brain
CPT/HCPCS: 36247; 75710; C1760; C1769; C1887; C1894; G0269; J1200; J2250; J3010; Q9967

== ENCOUNTER → 2018-10-07 | Outpatient (CLI) | payer MEDICAID, MEDICARE ==
[~2018-10-07] MED LIST changes: -BUPIVACAINE HCL 0.5% 10 ML VIAL As Ordered ONE; -HEPARIN 1,000 UNITS/ML 10ML VIAL (FOR RADIOLOGY& DIALYSIS ONLY) As Ordered ONE; -ISOVUE-300 61% 50ML VIAL (Q9967) As Ordered ONE; -LIDOCAINE 2% MDV 20 ML VIAL As Ordered ONE; -MIDAZOLAM INJ 2 MG/2 ML VIAL (J2250) As Ordered ONE; -diphenhydrAMINE INJ 50MG/ML VIAL (J1200) As Ordered ONE; -fentaNYL 100 MCG/2 ML INJECTION (J3010) As Ordered ONE
[2018-10-07 11:14] LABS: HEMOGLOBIN A1c 8.4 %
[2018-10-07 11:18] LABS: CALCIUM LEVEL 9.5 MG/DL (8.5-10.1); CREATININE FOR GFR 1.36 MG/DL (0.70-1.30); GLOMERULAR FILTRATION RATE 57.1 (>56); POTASSIUM SERUM 4.4 MEQ/L (3.5-5.1)
== END ==
LOC: M LAB 09:59
PROVIDERS: ATTEND Physician Assistant
DX: E10.65 Type 1 diabetes mellitus with hyperglycemia (principal)

== ENCOUNTER → 2018-10-24 | Outpatient (CLI) | payer MEDICARE, MEDICAID ==
--- NOTE | 2018-10-29 12:53 | DEXA ---
AP SPINE L1 - L4 1.256 0.5 0.5 LT FEMUR TOTAL 0.823 -1.5 -1.5 LT NECK 0.865 -1.2 -0.7 RT FEMUR TOTAL 0.886 -1.0 -1.0 RT NECK 0.833 -1.5 -0.9 TOTAL BODY TOTAL OTHER COMMENTS: Normal bone densitometry of the spine. There is low bone density of the hips. FOLLOW-UP: Recommendation for the next bone density exam: 2 years. ERLIN
== END ==
LOC: M WHC 14:29
PROVIDERS: ATTEND Family Medicine
DX: Z79.52 Long term (current) use of systemic steroids (principal); M85.89 Other specified disorders of bone density and structure, multiple sites

== ENCOUNTER 2018-12-09 19:21 | Emergency (ER) | payer MEDICARE, MEDICAID ==
[~2018-12-09] VITALS: Ht 175.3 cm; Wt 77.3 kg
[2018-12-09] MEDS ORDERED: INSUH10VL SC (19:41)
[2018-12-09] MEDS ORDERED: NS 500 ML IV ONE ×2 (20:30→21:30)
[2018-12-09 20:56] LABS: BASO % 0.4 % (0.0-1.0); EOS % 0.3 % (0.0-3.0); HEMATOCRIT 36.4 % (42.0-52.0); HEMOGLOBIN 12.8 g/dl (13.5-17.5); LYMPH # 1.2 10^3/uL (1.5-5.0); LYMPH % 12.2 % (24.0-44.0); MEAN CORPUSCULAR HEMOGLOBIN 32.3 pg (27.0-33.0); MEAN CORPUSCULAR HGB CONC 35.2 g/dl (32.0-36.5); MEAN CORPUSCULAR VOLUME 91.9 fl (80.0-96.0); MONO % 10.8 % (0.0-5.0); NEUTROPHILS # 7.3 10^3/uL (1.5-8.5); NEUTROPHILS % 76.1 % (36.0-66.0); PLATELET COUNT, AUTOMATED 181 10^3/uL (150-450); RED BLOOD COUNT 3.96 10^6/uL (4.30-6.10); WHITE BLOOD COUNT 9.7 10^3/uL (4.0-10.0)
[2018-12-09 21:23] LABS: ALBUMIN 3.4 GM/DL (3.2-5.2); ALT/SGPT 26 U/L (12-78); BILIRUBIN,DIRECT 0.4 MG/DL (0.0-0.2); BILIRUBIN,TOTAL 1.6 MG/DL (0.2-1.0); BLOOD UREA NITROGEN 16 MG/DL (7-18); CALCIUM LEVEL 9.1 MG/DL (8.5-10.1); CARBON DIOXIDE LEVEL 22 MEQ/L (21-32); CHLORIDE LEVEL 102 MEQ/L (98-107); CK-MB VALUE MASS < 1.0 NG/ML (<3.6); CPK CREATINE PHOSPHOKINASE 64 U/L (39-308); GLOMERULAR FILTRATION RATE > 60.0 (>56); GLUCOSE, FASTING 252 MG/DL (70-100); LIPASE 29 U/L (73-393); MB/CK RELATIVE INDEX 1.56 (< OR =4); POTASSIUM SERUM 3.8 MEQ/L (3.5-5.1); SODIUM LEVEL 139 MEQ/L (136-145); TOTAL PROTEIN 6.7 GM/DL (6.4-8.2); TROPONIN I < 0.02 NG/ML (< 0.10)
[2018-12-09] MEDS ORDERED: METOCLOPRAMIDE INJ 10MG/2ML VIAL (J2765) IV ONE (21:30)
[2018-12-09] MEDS ORDERED: ISOVUE-370 76% 100ML VIAL (Q9967) As Ordered ONE (21:49)
--- NOTE | 2018-12-09 23:10 | REPVR ---
EXAM: CT Abdomen and Pelvis With Contrast EXAM DATE/TIME: 12/09/2018 10:05 PM CLINICAL HISTORY: 58 years old, male; Abdominal pain; Prior surgery TECHNIQUE: Imaging protocol: Computed tomography of the abdomen and pelvis with intravenous contrast. Radiation optimization: All CT scans at this facility use at least one of these dose optimization techniques: automated exposure control; mA and/or kV adjustment per patient size (includes targeted exams where dose is matched to clinical indication); or iterative reconstruction. Contrast material: ISOVUE 370; Contrast volume: 100 ml; Contrast route: IV; COMPARISON: CT ABD PELVIS W/O CONTRAST 07/03/2017 2:26 PM FINDINGS: Lungs: Pulmonary emphysematous as well as peripheral fibrotic changes again noted. Liver: No discreet mass. Gallbladder and bile ducts: No calcified stones. No ductal dilation. Pancreas: No ductal dilation. Spleen: No splenomegaly. Adrenals: No mass. Kidneys and ureters: Multiple bilateral intrarenal kidney stones again noted. No hydroureteronephrosis. Stomach and bowel: Small to moderate size hiatal hernia partially imaged. No evidence of bowel obstruction. Appendix: No evidence of appendicitis. Intraperitoneal space: No free air. No significant fluid collection. Vasculature: Advanced vascular calcifications noted diffusely. Lymph nodes: No enlarged lymph nodes. Bladder: Unremarkable as visualized. Reproductive: Seminal vesicle calcifications. Bones/joints: No grossly displaced fractures or dislocations. Soft tissues: Unremarkable. IMPRESSION: No bowel obstruction, free intraperitoneal air/fluid or sizable inflammatory collections noted. Other ancillary findings as above. Electronically signed by: Rudy Kearney On 12/09/2018 23:10:33 PM
[2018-12-09] MEDS ORDERED: diphenhydrAMINE INJ 50MG/ML VIAL (J1200) IV STA (23:21)
[2018-12-09] MEDS ORDERED: HALOPERIDOL 5 MG/ML VIAL (J1630) IV STA (23:21)
[2018-12-09] MEDS ORDERED: GI COCKTAIL 50ML BTL(HYOSCYAMINE/MAALOX/LIDOCAINE VISCOUS)(1:3:1) PO ONE (23:30)
[2018-12-09] MEDS ORDERED: HumuLIN R (REGULAR) INSULIN (NovoLIN R) **100U/ML** PER UNIT IV ONE (23:30)
[2018-12-10 02:06] VITALS: BP 90/60
[2018-12-10] MEDS ORDERED: SUCR1SS PO (02:50)
[2018-12-10] MEDS ORDERED: PROT1TAB2 PO (02:51)
--- NOTE | 2018-12-10 07:22 | ECGEPIP ---
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
== END 2018-12-10 03:42 | disposition home or self-care (01) ==
LOC: M ED 19:21
DX: E11.649 Type 2 diabetes mellitus with hypoglycemia without coma (principal); K29.70 Gastritis, unspecified, without bleeding; K31.84 Gastroparesis; I73.9 Peripheral vascular disease, unspecified; G62.9 Polyneuropathy, unspecified; Z79.899 Other long term (current) drug therapy; Z79.82 Long term (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; Z79.4 Long term (current) use of insulin; Z79.02 Long term (current) use of antithrombotics/antiplatelets; Z87.891 Personal history of nicotine dependence
CPT/HCPCS: 36415; 74177; 80048; 80076; 82550; 82553; 83690; 84484; 85025; 93005; 96361; 96374; 96375; 99285; J1200; J1630; J2765; Q9967

== ENCOUNTER → 2018-12-13 | Outpatient (REF) | payer MEDICARE, MEDICAID ==
[~2018-12-13] MED LIST changes: +OMEP1CAP73; +OMEP1CAP73 PO; -OMEP20CA4; -OMEP20CA4 PO; -OMEP40CA2 PO; +OMEP40CA97 PO; +SUCR1SS PO; -SULF1TAB72; -SULF1TAB72 PO; +SULF400T14; +SULF400T14 PO
== END ==
LOC: M SFHCLERA 11:20
PROVIDERS: ATTEND Family Medicine
DX: N40.1 Benign prostatic hyperplasia with lower urinary tract symptoms (principal); E86.0 Dehydration; Z53.8 Procedure and treatment not carried out for other reasons

== ENCOUNTER → 2018-12-18 | Outpatient (REF) | payer MEDICARE, MEDICAID ==
[~2018-12-18] MED LIST changes: -OMEP1CAP73; -OMEP1CAP73 PO; +OMEP20CA4; +OMEP20CA4 PO; +OMEP40CA2 PO; -OMEP40CA97 PO; +SULF1TAB72; +SULF1TAB72 PO; -SULF400T14; -SULF400T14 PO
[2018-12-18 17:08] LABS: BASO # 0.1 10^3/uL (0.0-0.2); BASO % 0.7 % (0.0-1.0); EOS # 0.2 10^3/uL (0.0-0.5); EOS % 2.4 % (0.0-3.0); HEMATOCRIT 40.4 % (42.0-52.0); HEMOGLOBIN 13.3 g/dl (13.5-17.5); LYMPH # 2.8 10^3/uL (1.5-5.0); LYMPH % 38.7 % (24.0-44.0); MEAN CORPUSCULAR HEMOGLOBIN 32.4 pg (27.0-33.0); MEAN CORPUSCULAR HGB CONC 32.9 g/dl (32.0-36.5); MEAN CORPUSCULAR VOLUME 98.5 fl (80.0-96.0); MONO # 0.6 10^3/uL (0.0-0.8); MONO % 8.5 % (0.0-5.0); NEUTROPHILS # 3.5 10^3/uL (1.5-8.5); NEUTROPHILS % 48.9 % (36.0-66.0); PLATELET COUNT, AUTOMATED 266 10^3/uL (150-450); WHITE BLOOD COUNT 7.1 10^3/uL (4.0-10.0)
[2018-12-18 17:36] LABS: ALBUMIN 3.8 GM/DL (3.2-5.2); BILIRUBIN,TOTAL 0.5 MG/DL (0.2-1.0); CALCIUM LEVEL 9.3 MG/DL (8.5-10.1); CREATININE FOR GFR 1.45 MG/DL (0.70-1.30); FREE T4 0.61 NG/DL (0.76-1.46); POTASSIUM SERUM 3.8 MEQ/L (3.5-5.1); THYROID STIMULATING HORMONE 2.96 uIU/ML (0.358-3.740)
[2018-12-20 14:26] LABS: PSA TOTAL 0.4 ng/mL (0.0-4.0)
== END ==
LOC: M SFHCLERA 13:56
PROVIDERS: ATTEND Family Medicine
DX: N40.1 Benign prostatic hyperplasia with lower urinary tract symptoms (principal); E86.0 Dehydration; R53.83 Other fatigue; Z12.5 Encounter for screening for malignant neoplasm of prostate

== ENCOUNTER → 2018-12-19 | Outpatient (REF) | payer MEDICARE, MEDICAID | LOC: M SFHCLERA 11:29 | PROVIDERS: ATTEND Family Medicine | DX: N40.1 Benign prostatic hyperplasia with lower urinary tract symptoms (principal); Z53.8 Procedure and treatment not carried out for other reasons ==

== ENCOUNTER → 2018-12-25 | Outpatient (REF) | payer MEDICARE, MEDICAID | LOC: M SFHCLERA 10:42 | PROVIDERS: ATTEND Family Medicine | DX: A63.0 Anogenital (venereal) warts (principal) ==

== ENCOUNTER → 2019-01-16 | Outpatient (CLI) | payer MEDICARE, MEDICAID ==
[~2019-01-16] MED LIST changes: -OMEP40CA2 PO; +OMEP40CA97 PO
[2019-01-16 20:18] LABS: CALCIUM LEVEL 9.6 MG/DL (8.5-10.1); CREATININE FOR GFR 1.32 MG/DL (0.70-1.30); GLOMERULAR FILTRATION RATE 59.1 (>56); POTASSIUM SERUM 4.6 MEQ/L (3.5-5.1)
== END ==
LOC: M LRY 14:19
PROVIDERS: ATTEND Internal Medicine
DX: E10.65 Type 1 diabetes mellitus with hyperglycemia (principal)

== ENCOUNTER 2019-08-02 23:24 | Emergency (ER) | payer MEDICARE, MEDICAID ==
[~2019-08-02] VITALS: Ht 175.3 cm; Wt 78.2 kg
[~2019-08-02 23:24] MED LIST changes: +CYCL-707 PO; -CYCL10TA PO; +OMEP1CAP73; +OMEP1CAP73 PO; -OMEP20CA4; -OMEP20CA4 PO; -SULF1TAB72; -SULF1TAB72 PO; +SULF400T14; +SULF400T14 PO
[2019-08-03] MEDS ORDERED: HumuLIN R (REGULAR) INSULIN (NovoLIN R) **100U/ML** PER UNIT SC ONE (03:00)
[2019-08-03 04:00] VITALS: BP 140/71
[2019-08-04] MEDS ORDERED: ACET-897 PO (18:58)
[2019-08-04] MEDS ORDERED: XALA0.007 OS (19:01)
[2019-08-04] MEDS ORDERED: PRED1TABL PO (19:02)
== END 2019-08-03 04:14 | disposition home or self-care (01) ==
LOC: M ED 23:24
DX: E10.649 Type 1 diabetes mellitus with hypoglycemia without coma (principal); Z79.4 Long term (current) use of insulin; Z79.899 Other long term (current) drug therapy

== ENCOUNTER 2019-08-04 16:51 | Inpatient (IN) | payer MEDICARE, MEDICAID ==
[~2019-08-04] VITALS: Ht 175.3 cm; Wt 71.0 kg
[2019-08-04] MEDS ORDERED: NS 1,000 ML IV ONE (17:15)
[2019-08-04] MEDS ORDERED: PANTOPRAZOLE 40MG VIAL (C9113 PER 1) IV ONE (17:30)
[2019-08-04] MEDS: NS 1,000 ML IV SCH ×2 (17:43→18:51)
[2019-08-04 17:48] LABS: VENOUS BASE EXCESS -0.7 (-2.0-2.0); VENOUS HCO3 19.8 MEQ/L (23.0-27.0); VENOUS O2 SATURATION 92.1 % (60.0-80.0); VENOUS PARTIAL PRESSURE CO2 22.9 mmHg (38.0-50.0); VENOUS PARTIAL PRESSURE O2 53.7 mmHg (30.0-50.0); VENOUS PH 7.554 UNITS (7.330-7.430); VENOUS STANDARD HCO3 23.8 MEQ/L; VENOUS TOTAL CO2 20.5 MEQ/L (24.0-28.0)
[2019-08-04 17:50] LABS: BASO % 0.1 % (0.0-1.0); EOS % 0.1 % (0.0-3.0); HEMATOCRIT 36.8 % (42.0-52.0); LYMPH # 0.9 10^3/uL (1.5-5.0); LYMPH % 6.4 % (24.0-44.0); MEAN CORPUSCULAR HEMOGLOBIN 32.3 pg (27.0-33.0); MEAN CORPUSCULAR HGB CONC 35.3 g/dl (32.0-36.5); MEAN CORPUSCULAR VOLUME 91.3 fl (80.0-96.0); MONO % 7.7 % (0.0-5.0); NEUTROPHILS # 11.4 10^3/uL (1.5-8.5); NEUTROPHILS % 85.2 % (36.0-66.0); PLATELET COUNT, AUTOMATED 236 10^3/uL (150-450); RED BLOOD COUNT 4.03 10^6/uL (4.30-6.10); WHITE BLOOD COUNT 13.4 10^3/uL (4.0-10.0)
[2019-08-04] MEDS ORDERED: METOCLOPRAMIDE INJ 10MG/2ML VIAL (J2765 PER 1) IV ONE (18:00)
[2019-08-04 18:03] LABS: INR 1.1; PROTHROMBIN TIME 13.9 SECONDS (11.8-14.0)
[2019-08-04 18:15] LABS: ALBUMIN 3.8 GM/DL (3.2-5.2); BILIRUBIN,DIRECT 0.5 MG/DL (0.0-0.2); BILIRUBIN,TOTAL 2.2 MG/DL (0.2-1.0); TOTAL PROTEIN 7.3 GM/DL (6.4-8.2)
[2019-08-04] MEDS ORDERED: lisinopriL 10 MG TAB PO ONE (18:15)
[2019-08-04] MEDS ORDERED: HumuLIN R (REGULAR) INSULIN (NovoLIN R) **100U/ML** PER UNIT IV ONE (18:30)
--- NOTE | 2019-08-04 18:43 | ECGEPIP ---
[facility] - ED Test Date: 2019-08-04 Pat Name: SEBASTIEN GARCIA Department: Room: - Gender: Male Sort Supervisor: kg : 1960 Requested By: Lorie Garcia Order Number: [id number] Reading MD: Lorie Garcia Measurements Intervals [place] Rate: 110 P: 72 AR: 135 QRS: 31 QRSD: 83 T: -26 QT: 337 QTc: 457 Interpretive Statements SINUS TACHYCARDIA NONSPECIFIC ST & T-WAVE ABNORMALITY ABNORMAL RHYTHM ECG INCREASED RATE 12/09/18 Electronically Signed on 08-04-2019 18:43:06 EDT by Lorie Garcia
[2019-08-04] MEDS ORDERED: ACET-897 PO (18:58)
[2019-08-04] MEDS ORDERED: XALA0.007 OS (19:01)
[2019-08-04] MEDS ORDERED: PRED1TABL PO (19:02)
[2019-08-04] MEDS ORDERED: LABETALOL 100MG/20ML VIAL IV STA ×2 (19:34→21:42)
[2019-08-04] MEDS ORDERED: GLUCAGON INJ 1MG VIAL SC PRN (19:45)
[2019-08-04] MEDS ORDERED: DEXTROSE 50% 50 ML SYRINGE IV PRN (19:45)
[2019-08-04] MEDS ORDERED: GLUCOSE 4GM CHEW TABLET PO PRN (19:45)
[2019-08-04] MEDS ORDERED: ONDANSETRON 4MG/2ML VIAL IV PRN (19:45)
[2019-08-04] MEDS ORDERED: NS 1,000 ML IV SCH (19:45)
[2019-08-04] MEDS ORDERED: OCTREOTIDE ACETATE 100MCG/ML VIAL (J2354 PER 25MCG) IV ONE (20:00)
[2019-08-04] MEDS: OCTREOTIDE ACETATE 1,200 MCG in NS 238.8 ML IV SCH (20:34)
[2019-08-04] MEDS ORDERED: ENOXAPARIN 40MG/0.4ML SYRINGE (J1650 PER 10MG) SC SCH (21:00)
--- NOTE | 2019-08-04 21:03 | HPEPDOC ---
[facility] Medical History & Physical Date of Admission August 04, 2019 Date of Service: August 04, 2019 Primary Care Physician: SONIA JUNG MD Attending Physician: RITU OTERO MD History and Physical TIME OF SERVICE: 7:50 PM CHIEF COMPLAINT: Abdominal pain, headache HISTORY OF PRESENT ILLNESS: This is a 59-year-old gentleman who came to the hospital with complaints of upper, nonradiating, 10 /10 in severity abdominal pain began this morning when he vomited fluids that were dark red in color. He reports not being able to "keep anything down, " and thinks that he has vomited more than 5 times. Currently the abdominal pain has resolved. He had similar pain in the past associated with dark red-brown emesis and had an EGD, but doesn't remember the results. He is also c/o of a headache that began tonight. It is on the right side of his head and radiates across to the forehead, is not like a migraine and it's not similar to the pain that he that is associated with temporal arteritis. Recently, his prednisone which he reports is for "failure", was recently increased to 8 mg, but he hasn't taken it since Sunday. He thinks he has lost weight because of the vomiting. REVIEW OF SYSTEMS: 12 point review of systems negative except as listed in HPI PAST MEDICAL/ SURGICAL HISTORY: Upper GI bleed 2018 with EGD, path report showed gastric ulcer w/o H pylori EGD 2017 showed LA grade D monilial esophagitis and gastritis Brittle type 1 IDDM since 15 years of age Diabetic neuropathy History of diabetic foot ulcer affecting the left lower extremity that progressed to gangrene and required a left BKA Retinopathy CKD 3 ? 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 He doesn't drink alcohol FAMILY HISTORY: Alcoholism ALLERGIES: Please see below. HOME MEDICATIONS: Please see below. PHYSICAL EXAMINATION: Vital Signs Date Time Temp Pulse Resp B/P (MAP) Pulse Ox O2 Delivery O2 Flow Rate FiO2 08/04/19 17:01 114 194/120 (144) 100 08/04/19 17:13 98.7 24 Room Air GEN: well-nourished / well developed INTEGUMENT: not flushed/ not jaundice / seborrheic dermatitis like rash on his face HEENT: NCAT / lips acyanotic /mucus membranes moist and pink CVS: RRR/NMRG/ no JVP / radial pulses intact LUNGS: able to speak full sentences without stopping to take a breath / lungs are clear to auscultation bilaterally on room air ABDOMEN: Contour (flat) / soft, no guarding, no grimacing with palpation with palpation MSK/EXTREMITIES: range of motion intact in all extremities NEURO: CN 2-12 are grossly intact / speech is not dysarthric PSYCH: alert and oriented to person place and time/ able to understand and follow all commands LABORATORY DATA: Immature Granulocyte % (Auto) 0.5, Neutrophils (%) (Auto) 85.2H, Lymphocytes (%) (Auto) 6.4L, Monocytes (%) (Auto) 7.7H, Eosinophils (%) (Auto) 0.1, Basophils (%) (Auto) 0.1, Neutrophils # (Auto) 11.4H, Lymphocytes # (Auto) 0.9L, Monocytes # (Auto) 1.0H, Eosinophils # (Auto) 0.0, Basophils # (Auto) 0.0, Nucleated Red Blood Cells % (auto) 0.0, Prothrombin Time 13.9, Prothromb Time International Ratio 1.10, Total Bilirubin 2.2H, Direct Bilirubin 0.5H, Aspartate Amino Transf (AST/SGOT) 43H, Alanine Aminotransferase (ALT/SGPT) 51, Alkaline Phosphatase 131H, Total Protein 7.3, Albumin 3.8, Albumin/Globulin Ratio 1.09, Lipase 42L POC Glucose (Misc Panel) 260H, POC Sodium (Misc Panel) 135L, POC Potassium (Misc Panel) 3.6, POC Chloride (Misc Panel) 98, POC Total CO2 (Misc Panel) 20.0L, POC Blood Urea Nitrogen (Misc Panel 14, POC Ionized Calcium (Misc Panel) 4.1L, POC Creatinine (Misc Panel) 1.0, POC Hematocrit (Misc Panel) 39.0, Blood Gas Bicarbonate Standard 23.8, Venous Blood pH 7.554H, Venous Blood Partial Pressure CO2 22.9L, Venous Blood Partial Pressure O2 53.7H, Venous Blood Total Carbon Dioxide 20.5L, Venous Blood HCO3 19.8L, Venous Blood Oxygen Saturation 92.1H, Venous Blood Base Excess -0.7 Bedside Glucose (Misc Panel) 92 Lactic Acid Level 2.0 IMAGING: n/a MICROBIOLOGY: 08/04/19 Blood Culture, Received Pending ASSESSMENT: Mr. Girard is a 59-year-old with a history of type 1 diabetes complicated by neuropathy, retinopathy, nephropathy & autonomic dysfunction along with HTN, HFpEF, anxiety, depression, and history of gastric ulcer, esophagitis and gastritis who presented with abdominal pain associated with bright red emesis; he'll be admitted for evaluation of SIRS, upper GI bleed, and hypertensive urgency. PLAN: 1. SIRS vs Sepsis 2/2 GI source SIRS criteria include HR >90 / WBC >12 / RR > 20 He also has a T Egrardo >2 NEW2S Score = 7 points = high risk Plan: admit to PCU / telemetry / Sepsis protocol w lactic acid and exam in 3H / will start IV Rocephin for possible GI source and IVF / /f/u blood cx / Ofrimev PRN for fever / target MAP 65 to 70 / f/u Is and Os with target UOP of at least 0.5 ml/kg/H / target serum glucose 140-180 while acutely ill 2. Upper GI Bleed Suspect this is 2/2 be due to recurrent PUD or erosive gastritis 2/2 steroids Currently, his hemoglobin is 13, which is close to his baseline and his MAP is >65 Fordyce-Blatchford Score to identify low risk UGIB = 1 point = High Risk GI bleed that is likely to require medical intervention Rockall Score (pre-endoscopy) to determine severity of GIB = 4 points Plan: f/u serial Hg, iron studies / IV PPI / Octreotide drip / IV ceftriaxone / f/u stool H pylori if it is negative he will need to be discharged with PPI for GI px bc he is chronically on steroids/ Consulted for EGD +/-c-scope / hold ASA, plavix & prednisone, fludrocortisone / since he is on less than 10 mg/d of steroids and his BP is very high I will not order stress dose of glucocorticoids 3. Hypertensive Urgency The VAN is likely 2/2 uncontrolled BP His max BP was 228/105 I'm not sure if the acute elevation in the BP is related to the increased dose of steroids. The first EKG showed sinus tachycardia. Plan: will aim to lower BP by 25% w/in the first 2-4 hours with target BP of <160/100 / avoid excessive environmental stimuli / resume lisinopril + IV labet alol PRN / will not add new BP med for now bc of his autonomic dysfunction day time team can continue to monitor his BP and consider consulting Endocrine to determine if his fludricortisone and prednisone doses need to titrated tomorrow / f/u Trop bc he is at risk of silent AL with his long standing DM and CT of head bc of VAN 4. Transaminitis Possibly 2/2 fatty liver Hep ABC were neg in 2018 HIV was neg in 2019 Plan: trend LFTs and f/u liver US 5. Chronic Anemia Plan: trend Hg / f/u Iron panel 6. Brittle Type 1 IDDM He has multiple complications including diabetic neuropathy, left BKA to mange foot ulcer that had progressed to gangreen, retinopathy and nephropathy and autonomic dysfunction Plan: f/u accuchecks & A1C / hypoglycemia protocol / sliding scale insulin / hold oral anti-glycemics / gabapentin 7. Temporal arteritis - Plan: hold steroids pending EGD 8. Chronic Grade 1 Diastolic CHF. Euvolemic - Plan: control BP 9. Anxiety/depression -Plan: citalopram 10. 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 "failure" ? - I am not sure if the patient is talking about "failure" of the steroids to manage his blood pressure or Adrenal "failure" ? - Plan: day time team can f/u the patient's PCP to confirm why prednisone dose was increased DVT SCDs DISPO: home after more than 2 midnight's stay LATE ENTRY #hypoglycemia w serum glucose of 47 - switch to D5NS Home Medications Scheduled Aspirin (Aspirin EC) 81 Mg Tab, 81 MG PO DAILY Atorvastatin Calcium (Atorvastatin Calcium) 40 Mg Tab, 40 MG PO DAILY Citalopram Hydrobromide (Citalopram HBr) 40 Mg Tab, 40 MG PO DAILY Clopidogrel Bisulfate (Clopidogrel) 75 Mg Tab, 75 MG PO DAILY Ferrous Sulfate (Ferrous Sulfate) 325 Mg Tab, 325 MG PO DAILY Fludrocortisone Acetate (Fludrocortisone Acetate) 0.1 Mg Tab, 0.1 MG PO DAILY Gabapentin (Gabapentin) 300 Mg Cap, 300 MG PO BID Insulin Human Lispro (Novolog) 100 Unit/1 Ml Vial, 1 UNITS SC pump UP TO 100 UNITS DAILY CONTINUOUS THROUGH INSULIN PUMP Latanoprost (Xalatan) 0.005% 2.5ML Drops, 1 DROP OS QHS Lisinopril (Lisinopril) 10 Mg Tab, 10 MG PO DAILY PATIENT STATES HE TAKES THIS MEDICATION,CALLED WITH PHARMACY AND VERIFIED THAT HE HAS NEVER HAD THIS FILLED Prednisone (Prednisone) 5 Mg Tab, 5 MG PO DAILY Prednisone (Prednisone) 1 Mg Tablet, 3 MG PO DAILY Scheduled PRN Acetaminophen (Tylenol Extra Strength) 500 Mg Tablet, 1,000 MG PO Q6HP PRN for PAIN Allergies Coded Allergies: No Known Allergies (Unverified , 08/04/19) A-FIB/CHADSVASC A-FIB History Current/History of A-Fib/PAF?: No Current PO Anticoag Therapy: No RITU OTERO MD August 04, 2019 21:03
[2019-08-04 21:05] VITALS: BP 178/80
[2019-08-04] MEDS ORDERED: ACETAMINOPHEN *IV* 1,000 MG in IV 1 EA IV PRN (21:45)
[2019-08-04] MEDS: PANTOPRAZOLE 40MG VIAL (C9113 PER 1) IV SCH (22:20)
[2019-08-04 22:28] LABS: HEMOGLOBIN A1c 8.1 %
[2019-08-04] MEDS: GABAPENTIN 300 MG CAP PO SCH (22:28)
[2019-08-04] MEDS: LATANOPROST 0.005% OPHTH SOLN 2.5 ML OS SCH (22:28)
[2019-08-04] MEDS: HumaLOG INSULIN (NovoLOG) PER UNIT SC SCH (22:29)
[2019-08-04 22:34] LABS: PERCENT SATURATION 16.2 % (19.7-50.0)
--- NOTE | 2019-08-04 23:07 | REPVR ---
PROCEDURE INFORMATION: Exam: CT Head Without Contrast Exam date and time: 08/04/2019 10:54 PM Age: 59 years old Clinical indication: Pain; Headache; Additional info: Right sided headache in PT w BP of 228/105 TECHNIQUE: Imaging protocol: Computed tomography of the head without contrast. Radiation optimization: All CT scans at this facility use at least one of these dose optimization techniques: automated exposure control; mA and/or kV adjustment per patient size (includes targeted exams where dose is matched to clinical indication); or iterative reconstruction. COMPARISON: CT Head without contrast 2017-08-04 04:31 FINDINGS: Brain: Diffuse mild cerebral age related volume loss. Mild patchy low attenuation in the white matter compatible with mild chronic small vessel ischemic disease. No midline shift, mass, fluid collection, or evidence of hemorrhage. Ventricles: Ventricular enlargement proportional to volume loss. Bones/joints: Unremarkable. No acute fracture. Sinuses: Visualized sinuses are unremarkable. No fluid levels. Mastoid air cells: Visualized mastoid air cells are well aerated. Soft tissues: Unremarkable. IMPRESSION: Mild involutional changes, no acute intracranial abnormality. Electronically signed by: Edwin Buenrostro On 08/04/2019 23:06:57 PM
--- NOTE | 2019-08-04 23:40 | REPVR ---
PROCEDURE INFORMATION: Exam: US Abdomen Limited, Right Upper Quadrant Exam date and time: 08/04/2019 11:22 PM Age: 59 years old Clinical indication: Abdominal pain; Generalized; Additional info: Transaminitis TECHNIQUE: Imaging protocol: Real-time ultrasound of the abdomen with image documentation. Examination was focused on the right upper quadrant. COMPARISON: Abdomen, limited US 2016-12-03 17:30 FINDINGS: Liver: Normal. No masses. Gallbladder: Gallbladder sludge. No wall thickening or pericholecystic fluid, or sonographic Naik sign to suggest acute cholecystitis. Common bile duct: 3.1 mm common biliary duct. Pancreas: Pancreas obscured by bowel gas. Right kidney: Echogenic foci in the upper and mid right kidney compatible with probable renal stones. IMPRESSION: 1. Gallbladder sludge. 3.1 mm common biliary duct. No wall thickening or pericholecystic fluid, or sonographic Naik sign to suggest acute cholecystitis. 2. Pancreas obscured by bowel gas. 3. Echogenic foci in the upper and mid right kidney compatible with probable renal stones. Electronically signed by: Edwin Buenrostro On 08/04/2019 23:39:56 PM
[2019-08-04] MEDS: D5W/0.9% SODIUM CHLORIDE 1,000 ML IV SCH (23:53)
[2019-08-04] MEDS: cefTRIAXone SOD 1 GM in D5W MINI-BAG PLUS 50 ML IV SCH (23:53)
[2019-08-05] VITALS (7 sets, daily range): BP systolic 137–178; BP diastolic 63–86
[2019-08-05] MEDS ORDERED: ONDANSETRON 4MG/2ML VIAL IV PRN (00:15)
[2019-08-05 05:46] LABS: HEMATOCRIT 35.1 % (42.0-52.0); HEMOGLOBIN 11.8 g/dl (13.5-17.5); MEAN CORPUSCULAR HEMOGLOBIN 32.2 pg (27.0-33.0); MEAN CORPUSCULAR HGB CONC 33.6 g/dl (32.0-36.5); MEAN CORPUSCULAR VOLUME 95.6 fl (80.0-96.0); PLATELET COUNT, AUTOMATED 186 10^3/uL (150-450); RED BLOOD COUNT 3.67 10^6/uL (4.30-6.10); WHITE BLOOD COUNT 9.6 10^3/uL (4.0-10.0)
[2019-08-05 05:59] LABS: BLOOD UREA NITROGEN 15 MG/DL (7-18); CALCIUM LEVEL 7.9 MG/DL (8.8-10.2); CARBON DIOXIDE LEVEL 22 MEQ/L (21-32); CHLORIDE LEVEL 101 MEQ/L (98-107); CREATININE FOR GFR 1.18 MG/DL (0.70-1.30); GLOMERULAR FILTRATION RATE > 60.0 (>49); GLUCOSE, FASTING 296 MG/DL (70-100); POTASSIUM SERUM 4.6 MEQ/L (3.5-5.1); SODIUM LEVEL 133 MEQ/L (136-145)
[2019-08-05] MEDS: PANTOPRAZOLE 40MG VIAL (C9113 PER 1) IV SCH ×2 (08:53→21:28)
[2019-08-05] MEDS: HumaLOG INSULIN (NovoLOG) PER UNIT SC SCH ×4 (08:54→20:14)
[2019-08-05] MEDS: GABAPENTIN 300 MG CAP PO SCH ×2 (08:55→21:29)
[2019-08-05] MEDS: CitaloPRAM (CeleXA) 20 MG TAB PO SCH (08:55)
[2019-08-05] MEDS: SUCRALFATE 1 GM TAB PO SCH ×3 (11:53→21:29)
--- NOTE | 2019-08-05 12:03 | IPNPDOC ---
Text Note Date of Service The patient was seen on 08/05/19. 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 Patient had described the vomitus as dark in color. Patient was admitted to the hospital service for further evaluation and treatment. Patient was seen and examined at the bedside. Patient was that his nausea and vomiting have resolved. He denies any abdominal discomfort today. Denies any chest pain, shortness of breath, palpitations. Denies urinary discomfort or diarrhea. Patient reports that he has not expressing dark-colored stool. Objective: Vitals (See below) General: Lying in bed, appears comfortable, AAOx3 HEENT: NC, AT CVS: +S1S2 Lungs: Fair air entry b/l, -w/r/r Abdomen: Soft, ND, NT Extremities: - Edema at R leg, - Calf tenderness, L BKA Assessment and plan: N/V with abdominal pain - possibly 2/2 Upper GI Bleed; possibly 2/2 gastritis, esophagitis - Clinically presented with nausea, vomiting and pain; currently has had full resolution of the symptoms - Remains hemodynamically stable - Baseline Hg of approximately 12 - Will trend Hg - Will start Carafate - c/w Protonix and Octreotide - ASA / Plavix / Prednisone / Fludrocortisone on hold Hypertensive Urgency - BP on arrival was 228/105 - Currently BP is better controlled - CT head 08/03: Mild involutional changes, no acute intracranial abnormality. - c/w Amlodipine - Will resume Lisinopril Transaminitis - possibly 2/2 fatty liver - Patient has denied any alcohol consumption - Hepatitis panel panel 06/27/2017 negative - Liver US 08/03: 1. Gallbladder sludge. 3.1 mm common biliary duct. No wall thickening or pericholecystic fluid, or sonographic Naik sign to suggest acute cholecystitis. 2. Pancreas obscured by bowel gas. 3. Echogenic foci in the upper and mid right kidney compatible with probable renal stones. Chronic Anemia - See above IDDM1 with Neuropathy and Hypoglycemia - Hx of multiple complications from DM; Neuropathy, Retinopathy, Nephropathy - A1c of 8.1 - c/w Gabapentin - Will c/w ISS and adjusted dose of Levemir Temporal arteritis - Will hold Prednisone at this time Chronic Grade 1 Diastolic CH - Appears euvolemic Anxiety / Depression - c/w Citalopram Dyslipidemia - c/w Atorvastatin Glaucoma - c/w Latanoprost DVT prophylaxis - c/w TEDs / Sequentials Disposition: - Will continue to trend H/H - Anticipate discharge within 24-48 hours VS,Fishbone, I+O VS, Fishbone, I+O Laboratory Tests 08/04/19 17:34 08/04/19 22:00 08/05/19 05:31 Vital Signs Date Time Temp Pulse Resp B/P (MAP) Pulse Ox O2 Delivery O2 Flow Rate FiO2 08/05/19 07:32 98.9 89 18 137/63 (87) 97 Room Air I&O- Last 24 Hours up to 6 AM 08/05/19 05:59 Intake Total 2409 ml Output Total 925 ml Balance 1484 ml JOAN POLK MD August 05, 2019 12:03
[2019-08-05] MEDS: ATORVASTATIN 20 MG TAB PO SCH (12:57)
[2019-08-05] MEDS: FERROUS SULFATE 325MG TAB PO SCH (12:58)
[2019-08-05] MEDS: lisinopriL 10 MG TAB PO SCH (12:58)
[2019-08-05] MEDS: D5W/0.9% SODIUM CHLORIDE 1,000 ML IV SCH (15:16)
[2019-08-05] MEDS: OCTREOTIDE ACETATE 1,200 MCG in NS 238.8 ML IV SCH (17:34)
[2019-08-05] MEDS: cefTRIAXone SOD 1 GM in D5W MINI-BAG PLUS 50 ML IV SCH (21:28)
[2019-08-05] MEDS: LATANOPROST 0.005% OPHTH SOLN 2.5 ML OS SCH (21:28)
--- NOTE | 2019-08-05 23:23 | ECGEPIP ---
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
[2019-08-06] VITALS: BP 176/76
[2019-08-06 04:00] VITALS: BP 170/78
[2019-08-06] MEDS ORDERED: HumaLOG INSULIN (NovoLOG) PER UNIT SC ONE (04:00)
[2019-08-06 05:45] LABS: BASO % 0.4 % (0.0-1.0); EOS # 0.2 10^3/uL (0.0-0.5); HEMATOCRIT 34.2 % (42.0-52.0); HEMOGLOBIN 11.8 g/dl (13.5-17.5); LYMPH # 1.6 10^3/uL (1.5-5.0); LYMPH % 19.7 % (24.0-44.0); MEAN CORPUSCULAR HGB CONC 34.5 g/dl (32.0-36.5); MEAN CORPUSCULAR VOLUME 92.7 fl (80.0-96.0); MONO # 0.8 10^3/uL (0.0-0.8); MONO % 9.7 % (0.0-5.0); NEUTROPHILS # 5.4 10^3/uL (1.5-8.5); NEUTROPHILS % 67.8 % (36.0-66.0); PLATELET COUNT, AUTOMATED 197 10^3/uL (150-450); RED BLOOD COUNT 3.69 10^6/uL (4.30-6.10)
[2019-08-06 06:18] LABS: BLOOD UREA NITROGEN 12 MG/DL (7-18); CALCIUM LEVEL 7.9 MG/DL (8.8-10.2); CARBON DIOXIDE LEVEL 23 MEQ/L (21-32); CHLORIDE LEVEL 100 MEQ/L (98-107); CREATININE FOR GFR 1.06 MG/DL (0.70-1.30); GLOMERULAR FILTRATION RATE > 60.0 (>49); GLUCOSE, FASTING 324 MG/DL (70-100); MAGNESIUM LEVEL 1.7 MG/DL (1.8-2.4); POTASSIUM SERUM 4.2 MEQ/L (3.5-5.1); SODIUM LEVEL 133 MEQ/L (136-145)
[2019-08-06] MEDS ORDERED: MAG SULF 1GM/100ML (MAG RUN) 1 GM in IV 1 EA IV ONE (07:00)
[2019-08-06] MEDS ORDERED: PANT40TA3 PO (07:34)
[2019-08-06] MEDS ORDERED: SUCR1TA PO (07:34)
[2019-08-06 07:49] VITALS: BP 155/70
[2019-08-06] MEDS: SUCRALFATE 1 GM TAB PO SCH ×2 (07:49→11:37)
[2019-08-06] MEDS: CitaloPRAM (CeleXA) 20 MG TAB PO SCH (07:49)
[2019-08-06] MEDS: ATORVASTATIN 20 MG TAB PO SCH (07:49)
[2019-08-06] MEDS: GABAPENTIN 300 MG CAP PO SCH (07:49)
[2019-08-06] MEDS: FERROUS SULFATE 325MG TAB PO SCH (07:49)
[2019-08-06] MEDS: lisinopriL 10 MG TAB PO SCH (07:49)
[2019-08-06] MEDS: HumaLOG INSULIN (NovoLOG) PER UNIT SC SCH ×2 (07:50→11:28)
[2019-08-06 08:00] VITALS: BP 165/88
[2019-08-06] MEDS: D5W/0.9% SODIUM CHLORIDE 1,000 ML IV SCH (08:05)
--- NOTE | 2019-08-06 08:59 | DS.PDOC ---
Discharge Summary General Date of Admission August 04, 2019 at 19:34 Date of Discharge 08/06/2019 Discharge Summary PROCEDURES PERFORMED DURING STAY: [None]. ADMITTING DIAGNOSES / DISCHARGE DIAGNOSES: N/V with abdominal pain - possibly 2/2 Upper GI Bleed; possibly 2/2 gastritis, esophagitis Hypertensive Urgency Transaminitis - possibly 2/2 fatty liver Chronic Anemia IDDM1 with Neuropathy and Hypoglycemia Temporal arteritis / Adrenal insufficiency Chronic Grade 1 Diastolic CH Anxiety / Depression Dyslipidemia Glaucoma DVT prophylaxis COMPLICATIONS/CHIEF COMPLAINT: Abdominal Pain / Nausea and Vomiting HISTORY OF PRESENT ILLNESS: Patient is 59-year-old male with a PMHx Upper GI bleed (2018 EGD with gastric ulcer), Chronic G1 Diastolic CHF, HTN, Hx of RUE DVT, IDDM1, DLP, Neuropathy, Diabetic foot ulcer s/p Left BKA, CKD3, Retinopathy, Autonomic dysfunction, Chronic anemia, Hx of Nephrolithiasis, 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 Patient had described the vomitus as dark in color. Patient was admitted to the hospital service for further evaluation and treatment. HOSPITAL COURSE: N/V with abdominal pain - possibly 2/2 Upper GI Bleed; possibly 2/2 gastritis, esophagitis - Clinically presented with nausea, vomiting and pain; no symptoms at all at this time - Remains hemodynamically stable - Baseline Hg of approximately 12; has remained stable throughout hospitalization; has not required transfusions - c/w Carafate and Protonix - Will DC Octreotide - General surgery on consultation; Dr. Raphael; appreciate their input; will have outpatient follow up within 7 days - Will resume ASA / Plavix / Reduce dose of prednisone on discharge / Fludrocor tisone will remain on hold Hypertensive Urgency - BP on arrival was 228/105 - Currently BP is better controlled - CT head 08/03: Mild involutional changes, no acute intracranial abnormality. - c/w Amlodipine and Lisinopril Transaminitis - possibly 2/2 fatty liver - Patient has denied any alcohol consumption - Hepatitis panel panel 06/27/2017 negative - Liver US 08/03: 1. Gallbladder sludge. 3.1 mm common biliary duct. No wall thickening or pericholecystic fluid, or sonographic Naik sign to suggest acute cholecystitis. 2. Pancreas obscured by bowel gas. 3. Echogenic foci in the upper and mid right kidney compatible with probable renal stones. - Will have outpatient follow up with primary care provider Chronic Anemia - See above IDDM1 with Neuropathy and Hypoglycemia - Hx of multiple complications from DM; Neuropathy, Retinopathy, Nephropathy - A1c of 8.1 - c/w Gabapentin - c/w ISS and adjusted dose of Levemir Temporal arteritis / Adrenal insufficiency - Patient's BP remains well controlled / Elevated - Will resume Prednisone at reduced dose on discharge - Will have outpatient follow up with Endocrinology Chronic Grade 1 Diastolic CH - Appears euvolemic Anxiety / Depression - c/w Citalopram Dyslipidemia - c/w Atorvastatin Glaucoma - c/w Latanoprost DVT prophylaxis - c/w TEDs / Sequentials DISCHARGE MEDICATIONS: Please see below. ALLERGIES: Please see below. PHYSICAL EXAMINATION ON DISCHARGE: Vitals (See below) General: Lying in bed, appears comfortable, AAOx3 HEENT: NC, AT CVS: +S1S2 Lungs: Fair air entry b/l, no appreciable wheezing / rhonchi / crackles Abdomen: Soft, non-distended, non-tender Extremities: Again R leg without any edema noted, - Calf tenderness, L BKA LABORATORY DATA: Please see below. ACTIVITY: [As tolerated]. DISCHARGE PLAN: Follow up with PCP, Dr. Raphael and Endocrinology within 7 days. Remain compliant with treatment plan and medications Return to the ER if you experience any problems DISPOSITION: Home DISCHARGE CONDITION: [Stable]. TIME SPENT ON DISCHARGE: 35 minutes Vital Signs/I&Os Vital Signs Date Time Temp Pulse Resp B/P (MAP) Pulse Ox O2 Delivery O2 Flow Rate FiO2 08/06/19 08:00 98.2 90 18 165/88 (113) 99 Room Air I&O- Last 24 Hours up to 6 AM 08/06/19 06:00 Intake Total 4192 ml Output Total 4525 ml Balance -333 ml Laboratory Data Labs 24H Laboratory Tests 2 08/05/19 09:52: Methicillin-Resist S.aureus DNA PCR NOT DETECTED 08/05/19 11:40: Bedside Glucose (Misc Panel) 368H 08/05/19 16:44: Bedside Glucose (Misc Panel) 245H 08/05/19 20:08: Bedside Glucose (Misc Panel) 245H 08/06/19 03:12: Bedside Glucose (Misc Panel) 359H 08/06/19 05:15: Immature Granulocyte % (Auto) 0.4, Neutrophils (%) (Auto) 67.8H, Lymphocytes (%) (Auto) 19.7L, Monocytes (%) (Auto) 9.7H, Eosinophils (%) (Auto) 2.0, Basophils (%) (Auto) 0.4, Neutrophils # (Auto) 5.4, Lymphocytes # (Auto) 1.6, Monocytes # (Auto) 0.8, Eosinophils # (Auto) 0.2, Basophils # (Auto) 0.0, Nucleated Red Blood Cells % (auto) 0.0, Anion Gap 10, Glomerular Filtration Rate > 60.0, Calcium Level 7.9L, Magnesium Level 1.7L 08/06/19 06:19: Bedside Glucose (Misc Panel) 279H CBC/BMP Laboratory Tests 08/05/19 11:02 08/05/19 22:48 08/06/19 05:15 FSBS Laboratory Tests Test 08/05/19 11:40 08/05/19 16:44 08/05/19 20:08 08/06/19 03:12 Range/Units Bedside Glucose (Misc Panel) 368 245 245 359 80-115 MG/DL Test 08/06/19 06:19 Range/Units Bedside Glucose (Misc Panel) 279 80-115 MG/DL Microbiology Microbiology 08/04/19 Blood Culture - Preliminary, Resulted No growth after 24 hours . All specim... Discharge Medications Scheduled Aspirin (Aspirin EC) 81 Mg Tab, 81 MG PO DAILY, (Reported) Atorvastatin Calcium (Atorvastatin Calcium) 40 Mg Tab, 40 MG PO DAILY, (Reported) Citalopram Hydrobromide (Citalopram HBr) 40 Mg Tab, 40 MG PO DAILY, (Reported) Clopidogrel Bisulfate (Clopidogrel) 75 Mg Tab, 75 MG PO DAILY, (Reported) Ferrous Sulfate (Ferrous Sulfate) 325 Mg Tab, 325 MG PO DAILY, (Reported) Gabapentin (Gabapentin) 300 Mg Cap, 300 MG PO BID, (Reported) Insulin Human Lispro (Novolog) 100 Unit/1 Ml Vial, 1 UNITS SC pump, (Reported) UP TO 100 UNITS DAILY CONTINUOUS THROUGH INSULIN PUMP Latanoprost (Xalatan) 0.005% 2.5ML Drops, 1 DROP OS QHS, (Reported) Lisinopril (Lisinopril) 10 Mg Tab, 10 MG PO DAILY, (Reported) PATIENT STATES HE TAKES THIS MEDICATION,CALLED WITH PHARMACY AND VERIFIED THAT HE HAS NEVER HAD THIS FILLED Pantoprazole Sodium (Pantoprazole Sodium) 40 Mg Tablet.dr, 40 MG PO BID Prednisone (Prednisone) 5 Mg Tab, 5 MG PO DAILY, (Reported) Sucralfate (Sucralfate) 1 Gm Tablet, 1 GM PO ACHS Scheduled PRN Acetaminophen (Tylenol Extra Strength) 500 Mg Tablet, 1,000 MG PO Q6HP PRN for PAIN, (Reported) Allergies Coded Allergies: No Known Allergies (Unverified , 08/04/19) JOAN POLK MD August 06, 2019 08:59
[2019-08-06] MEDS ORDERED: PANTOPRAZOLE 40MG TAB (PROTONIX) PO SCH (09:00)
[2019-08-06] MEDS ORDERED: LISI10TA4 PO (11:28)
== END 2019-08-06 13:48 | disposition home or self-care (01) | DRG 378 ==
LOC: M ED 16:51 → M ED INP 19:34 → ENRESERV 20:07 → M PCU 21:06
PROVIDERS: ADMIT Internal Medicine; ATTEND Internal Medicine
DX: K92.2 Gastrointestinal hemorrhage, unspecified (principal); I13.0 Hypertensive heart and chronic kidney disease with heart failure and stage 1 through stage 4 chronic kidney disease, or unspecified chronic kidney disease; I50.32 Chronic diastolic (congestive) heart failure; N18.3 Chronic kidney disease, stage 3 (moderate); M31.6 Other giant cell arteritis; I16.0 Hypertensive urgency; E10.43 Type 1 diabetes mellitus with diabetic autonomic (poly)neuropathy; E10.319 Type 1 diabetes mellitus with unspecified diabetic retinopathy without macular edema; E10.21 Type 1 diabetes mellitus with diabetic nephropathy; E78.5 Hyperlipidemia, unspecified; F41.9 Anxiety disorder, unspecified; F32.9 Major depressive disorder, single episode, unspecified; D64.9 Anemia, unspecified; H40.9 Unspecified glaucoma; K76.0 Fatty (change of) liver, not elsewhere classified; K21.9 Gastro-esophageal reflux disease without esophagitis; Z89.512 Acquired absence of left leg below knee; E10.649 Type 1 diabetes mellitus with hypoglycemia without coma; Z79.82 Long term (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; Z79.4 Long term (current) use of insulin; Z79.899 Other long term (current) drug therapy; Z87.891 Personal history of nicotine dependence; K29.70 Gastritis, unspecified, without bleeding; K20.9 Esophagitis, unspecified

== ENCOUNTER 2019-08-09 20:29 | Emergency (ER) | payer MEDICARE, MEDICAID ==
[~2019-08-09] VITALS: Ht 175.3 cm; Wt 78.2 kg
[~2019-08-09 20:29] MED LIST changes: +ACET-897 PO; +SUCR1TA PO; +XALA0.007 OS
[2019-08-09] MEDS ORDERED: NS 1,000 ML IV SCH (21:00)
[2019-08-09 21:45] LABS: VENOUS BASE EXCESS 0.1 (-2.0-2.0); VENOUS HCO3 27.2 MEQ/L (23.0-27.0); VENOUS O2 SATURATION 90.9 % (60.0-80.0); VENOUS PARTIAL PRESSURE CO2 54.7 mmHg (38.0-50.0); VENOUS PARTIAL PRESSURE O2 65.5 mmHg (30.0-50.0); VENOUS PH 7.315 UNITS (7.330-7.430); VENOUS STANDARD HCO3 24.5 MEQ/L; VENOUS TOTAL CO2 28.9 MEQ/L (24.0-28.0)
[2019-08-09 21:50] LABS: BASO % 0.4 % (0.0-1.0); EOS # 0.1 10^3/uL (0.0-0.5); EOS % 0.9 % (0.0-3.0); HEMATOCRIT 35.3 % (42.0-52.0); HEMOGLOBIN 12.2 g/dl (13.5-17.5); LYMPH # 0.8 10^3/uL (1.5-5.0); LYMPH % 9.8 % (24.0-44.0); MEAN CORPUSCULAR HGB CONC 34.6 g/dl (32.0-36.5); MEAN CORPUSCULAR VOLUME 92.7 fl (80.0-96.0); MONO # 0.8 10^3/uL (0.0-0.8); MONO % 8.8 % (0.0-5.0); NEUTROPHILS # 6.8 10^3/uL (1.5-8.5); NEUTROPHILS % 79.6 % (36.0-66.0); PLATELET COUNT, AUTOMATED 239 10^3/uL (150-450); RED BLOOD COUNT 3.81 10^6/uL (4.30-6.10); WHITE BLOOD COUNT 8.5 10^3/uL (4.0-10.0)
[2019-08-09 22:10] LABS: HEMOGLOBIN A1c 8.1 %
[2019-08-09] MEDS ORDERED: DEXTROSE 50% 50 ML SYRINGE IV STA (22:21)
[2019-08-09 23:41] LABS: VENOUS BASE EXCESS 0.7 (-2.0-2.0); VENOUS HCO3 24.8 MEQ/L (23.0-27.0); VENOUS O2 SATURATION 99.3 % (60.0-80.0); VENOUS PARTIAL PRESSURE CO2 38.1 mmHg (38.0-50.0); VENOUS PARTIAL PRESSURE O2 182.8 mmHg (30.0-50.0); VENOUS PH 7.432 UNITS (7.330-7.430); VENOUS STANDARD HCO3 25.1 MEQ/L
[2019-08-09 23:43] VITALS: BP 155/70
== END 2019-08-10 00:04 | disposition home or self-care (01) ==
LOC: M ED 20:29
DX: E10.649 Type 1 diabetes mellitus with hypoglycemia without coma (principal); K21.9 Gastro-esophageal reflux disease without esophagitis; Z79.899 Other long term (current) drug therapy; Z79.82 Long term (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; Z79.4 Long term (current) use of insulin

== ENCOUNTER 2019-08-24 14:58 | Emergency (ER) | payer MEDICARE, MEDICAID ==
[2019-08-24 18:00] VITALS: BP 131/87
[2019-09-11] MEDS ORDERED: PANT40TA3 PO (15:38)
[2019-09-11] MEDS ORDERED: LISI10TA4 PO (15:38)
[2019-09-11] MEDS ORDERED: PRED1TABL PO (15:38)
[2019-09-11] MEDS ORDERED: SUCR1TA PO (15:38)
[2019-09-11] MEDS ORDERED: FLUD0.1T PO (15:38)
[2019-09-11] MEDS ORDERED: QC F0.52 PO (15:47)
[2019-09-11] MEDS ORDERED: CETI10CA13 PO (15:47)
[2019-09-11] MEDS ORDERED: IBUP-1114 PO (15:48)
== END 2019-08-24 18:41 | disposition home or self-care (01) ==
LOC: M ED 14:58 → EDBD 14:58 → M ED 18:41
DX: E10.649 Type 1 diabetes mellitus with hypoglycemia without coma (principal); E10.40 Type 1 diabetes mellitus with diabetic neuropathy, unspecified; E10.319 Type 1 diabetes mellitus with unspecified diabetic retinopathy without macular edema; I50.9 Heart failure, unspecified; F31.9 Bipolar disorder, unspecified; I73.9 Peripheral vascular disease, unspecified; Z89.512 Acquired absence of left leg below knee; Z86.718 Personal history of other venous thrombosis and embolism; Z86.39 Personal history of other endocrine, nutritional and metabolic disease; Z87.891 Personal history of nicotine dependence; Z79.899 Other long term (current) drug therapy; Z79.82 Long term (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; Z79.02 Long term (current) use of antithrombotics/antiplatelets

== ENCOUNTER → 2019-09-14 | Outpatient (CLI) | payer MEDICARE, MEDICAID ==
[~2019-09-14] MED LIST changes: +CETI10CA13 PO; +IBUP-1114 PO; +QC F0.52 PO
== END ==
LOC: M LABSMTC 10:32
PROVIDERS: ATTEND Anesthesiology
DX: Z03.818 Encounter for observation for suspected exposure to other biological agents ruled out (principal); Z11.59 Encounter for screening for other viral diseases
CPT/HCPCS: C9803; U0003

== ENCOUNTER 2019-09-17 09:30 | Day surgery (SDC) | payer MEDICARE, MEDICAID ==
[~2019-09-17] VITALS: Ht 175.3 cm; Wt 75.3 kg
[~2019-09-17 09:30] MED LIST changes: +LIDOCAINE 2% 100MG/5ML SDV (FOR ANES.) As Ordered ONE; +NS 1,000 ML IV ONE; +propofoL 200 MG/20 ML VIAL As Ordered ONE
[2019-09-17] MEDS ORDERED: fentaNYL 100 MCG/2 ML INJECTION (J3010) As Ordered ONE (10:22)
--- NOTE | 2019-09-17 11:18 | ROOR ---
Patient Name: Hermann Girard Procedure Date: 09/17/2019 10:36 AM Date of : 1960 Age: 59 Room: [facility] Gender: Male Note Status: Finalized Procedure: Upper GI endoscopy Indications: Acute post hemorrhagic anemia, Melena, Occult blood in stool Providers: Job Raphael MD Referring MD: Christelle Cook Md Requesting Provider: Medicines: Monitored Anesthesia Care Complications: No immediate complications. Procedure: Pre-Anesthesia Assessment: - Prior to the procedure, a History and Physical was performed, and patient medications and allergies were reviewed. The patient is competent. The risks and benefits of the procedure and the sedation options and risks were discussed with the patient. All questions were answered and informed consent was obtained. Patient identification and proposed procedure were verified by the physician, the nurse and the anesthesiologist in the endoscopy suite. Mental Status Examination: alert and oriented. Airway Examination: normal oropharyngeal airway and neck mobility. Respiratory Examination: clear to auscultation. CV Examination: normal. Prophylactic Antibiotics: The patient does not require prophylactic antibiotics. Prior Anticoagulants: The patient has taken Plavix (clopidogrel), last dose was 7 days prior to procedure. ASA Grade Assessment: III - A patient with severe systemic disease. After reviewing the risks and benefits, the patient was deemed in satisfactory condition to undergo the procedure. The anesthesia plan was to use monitored anesthesia care (MAC). Immediately prior to administration of medications, the patient was re-assessed for adequacy to receive sedatives. The heart rate, respiratory rate, oxygen saturations, blood pressure, adequacy of pulmonary ventilation, and response to care were monitored throughout the procedure. The physical status of the patient was re-assessed after the procedure. The Endoscope was introduced through the mouth, and advanced to the duodenal bulb. The upper GI endoscopy was technically difficult and complex due to narrowing. The patient tolerated the procedure well. Findings: There were esophageal mucosal changes suspicious for short-segment Sandoval's esophagus present in the lower third of the esophagus. The maximum longitudinal extent of these mucosal changes was 1 cm in length. Mucosa was biopsied with a cold forceps for histology in a targeted manner at intervals of 0.5 cm in the lower third of the esophagus. One specimen bottle was sent to pathology. Estimated blood loss was minimal. Localized mildly erythematous mucosa without bleeding was found on the greater curvature of the stomach. This was biopsied with a cold forceps for histology. healed ulcer at the pyloric opening (previously seen in 2018) An acquired benign-appearing, intrinsic moderate stenosis was found in the duodenal bulb and was non-traversed. This was biopsied with a cold forceps for histology. 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 Biopsied. - Erythematous mucosa in the greater curvature. Biopsied. - Acquired duodenal stenosis. Biopsied. Recommendation: - Return to my office in 2 weeks. Job Raphael MD Job Raphael MD 09/17/2019 11:18:29 AM Electronically signed by Job Raphael MD Number of Addenda: 0 Note Initiated On: 09/17/2019 10:36 AM Estimated Blood Loss: Estimated blood loss: Minimal.
[2019-09-17 11:40] VITALS: BP 123/63
[2019-10-07] MEDS ORDERED: HYDR-4517 PO (08:29)
== END 2019-09-17 11:52 | disposition home or self-care (01) ==
LOC: M OPP 09:30
PROVIDERS: ATTEND Surgery
DX: K22.8 Other specified diseases of esophagus (principal); K31.89 Other diseases of stomach and duodenum; K31.5 Obstruction of duodenum; D62 Acute posthemorrhagic anemia; R19.5 Other fecal abnormalities; Z79.4 Long term (current) use of insulin; Z79.82 Long term (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; Z79.899 Other long term (current) drug therapy; Z87.11 Personal history of peptic ulcer disease
CPT/HCPCS: 43239; 88305; J3010

== ENCOUNTER → 2019-09-24 | Outpatient (CLI) | payer MEDICARE, MEDICAID ==
[~2019-09-24] MED LIST changes: +HYDR-4517 PO; -LIDOCAINE 2% 100MG/5ML SDV (FOR ANES.) As Ordered ONE; -NS 1,000 ML IV ONE; -propofoL 200 MG/20 ML VIAL As Ordered ONE
--- NOTE | 2019-09-24 12:04 | REP ---
Emergency right lower extremity arterial Doppler ultrasound: History: Great toe wound. Sonographic findings: Ankle brachial index could not be obtained in the right lower extremity because of noncompressible vessels. Moderate to severe plaquing is seen in the common femoral artery bifurcation but no substantial stenosis is seen. The anterior tibial artery is larger than the posterior tibial artery. Monophasic waveforms are noted at and distal to the mid superficial femoral artery. Velocity chart right lower extremity arteries: CF A PSV 88 cm/S Profunda 104 Proximal SFA 86 Mid SFA 81 Distal SFA 91 Popliteal 81 Proximal AT A 104 Proximal REVERSE UNIT OPERATOR 38 Distal REVERSE UNIT OPERATOR 15 Distal AT A 63 Electronically Signed by Terrell Pichardo MD 09/24/2019 11:55 A
== END ==
LOC: M RAD 10:45
PROVIDERS: ATTEND Physician Assistant
DX: L97.519 Non-pressure chronic ulcer of other part of right foot with unspecified severity (principal)

== ENCOUNTER → 2019-10-08 | Outpatient (CLI) | payer MEDICARE, MEDICAID ==
[~2019-10-08] MED LIST changes: +ACETAMINOPHEN 325 MG TAB As Ordered ONE; +ACETAMINOPHEN TAB 650MG DOSE (2X325MG) PO PRN; +DEXTROSE 50% 50 ML SYRINGE As Ordered ONE; +ISOVUE-300 61% 50ML VIAL As Ordered ONE; +LIDOCAINE 1% MDV 20ML VIAL As Ordered ONE; +MIDAZOLAM INJ 2MG/2ML VIAL (J2250 PER 1MG) As Ordered ONE; +NITROGLYCERIN IN D5W 25MG/250ML (100MCG/ML) As Ordered ONE; +fentaNYL 100 MCG/2 ML INJECTION (J3010) As Ordered ONE
[2019-10-08 08:49] LABS: HEMATOCRIT 38.5 % (42.0-52.0); HEMOGLOBIN 12.6 g/dl (13.5-17.5); MEAN CORPUSCULAR HEMOGLOBIN 31.7 pg (27.0-33.0); MEAN CORPUSCULAR HGB CONC 32.7 g/dl (32.0-36.5); PLATELET COUNT, AUTOMATED 206 10^3/uL (150-450); RED BLOOD COUNT 3.97 10^6/uL (4.30-6.10); WHITE BLOOD COUNT 7.1 10^3/uL (4.0-10.0)
[2019-10-08 09:09] LABS: CALCIUM LEVEL 9.3 MG/DL (8.8-10.2); CREATININE FOR GFR 1.55 MG/DL (0.70-1.30); GLOMERULAR FILTRATION RATE 48.9 (>49); POTASSIUM SERUM 4.3 MEQ/L (3.5-5.1)
--- NOTE | 2019-10-08 12:53 | ROOPDOC ---
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 Ultrasound-guided access left common femoral artery 2. Aortoiliofemoral arteriogram 3. Selection right common femoral artery and superficial femoral artery and right lower extremity arteriogram and runoff 4. Selection popliteal artery and runoff 5. Angioplasty right superficial femoral artery 6 x 200 [place] balloon 6. Angioplasty right popliteal artery 5 x 200 [place] balloon 7. Angioplasty right posterior tibial artery 2.5 x 220 Kali balloon and 2.5 x 100 Kali balloon 8. Angioplasty right posterior tibial artery and medial plantar artery with 2 x 220 coyote balloon 9. Angioplasty right anterior tibial artery with 2.5 x 220 Kali balloon 10. Angioplasty right peroneal artery with 2.5 x 220 Kali balloon 11. Completion arteriograms 12. Mynx closure left common femoral artery SURGEON: Tisha Boss MD ANESTHESIA: Local anesthesia 7 mL lidocaine. Moderate intravenous conscious sedation was supervised by Dr. Boss. The patient was independently monitored by registered nurse assigned to the Department of radiology signal to be blood pressure, EKG, and pulse oximetry. The details sedation record is permanently store in the hospital information system. The following is a brief sedation record: Start time 10:07, stop time 12:31, Versed 3 mg IV, fentanyl 150 g IV, heparin 5000 units IV, nitroglycerin 300 g right lower extremity sheath. CONTRAST: 80 mL Isovue-300 INDICATION FOR PROCEDURE: This is a very pleasant 59-year-old patient who has been seen in the past by Dr. 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 Echevarria in 2019 approximately 1 year ago. I reviewed these images, and although there is limited contrast, it appears the patient has some SFA, popliteal, and tibial disease. Now, year later, he has a nonhealing wound on the right first toe. Risks benefits and alternatives to an arteriogram and potential intervention were explained to the patient. He is agreeable to proceed. Informed consent was obtained. INTERPRETATION: 1. The aorto iliac segments are widely patent. The common iliac arteries, hypogastric arteries, and external iliac arteries have some mild ectasia and calcification but no flow-limiting stenoses are noted. 2. The right common femoral artery has a heavy posterior lateral plaque distally near the bifurcation, approximately 30% stenosis within the vessel, but not limiting flow into the profunda or the SFA. 3. The right superficial femoral artery is ectatic throughout and has several areas of focal stenosis in the mid and proximal aspects of 30-40%. 4. The right popliteal artery has to focal stenoses, one of about 40%, one of about 70%. 5. The right tibial vessels are heavily diseased. There is diffuse focal calcified plaques distally, with significant luminal compromise in all 3 vessels. The anterior tibial artery occludes at the ankle, has significant collaterals that then fill the dorsal pedis artery in the foot. The peroneal artery is open proximally but occludes in the mid calf. The posterior tibial artery is open to the ankle, and has thready collateral flow to the medial plantar artery. I did not visualize much flow in the microvasculature distally. 6. After crossing chronic total occlusion and extensive repeat angioplasty along the entire length of the right posterior tibial artery with multiple different balloons, extending all the way into the distal medial plantar artery, we only appreciated good flow to just above the ankle. I believe this is secondary to spasm, as the wire balloon pass very easily into the foot. No thrombus is noted. No embolism is noted. This may be related to limited microvascular outflow as well, but I suspect spasm. Nitroglycerin administered through the popliteal artery did not significantly improve the final imaging. Contrast from the distal vessel to the proximal did fill, but does not fill anterograde. This suggests the vessel was open but likely spastic. No extravasation or dissection were noted. 7. After angioplasty of the right anterior tibial artery, there is marked improvement in flow down to the ankle, but we were not able to cross the occlusion at the origin of the dorsal pedis artery to provide in-line flow to the foot. There still is good collateral circulation distally from the anterior tibial artery to the dorsal pedis artery. No sterilization or dissection were noted. 8. After angioplasty of the right peroneal artery, we initially had excellent flow through the vessel, but then noted limited flow distally on completion imaging, suggestive also of spasm. Again, a wire passed easily through to the distal vessel, and contrast-filled from the distal to the proximal, no embolism or thrombus were noted. No extravasation or dissection were noted. REPORT OF OPERATION: The patient was brought to the angiographic suite in stable condition. His bilateral groins were prepped and draped in a sterile fashion. A timeout was performed. Sedation was administered without complication. Local anesthesia was ministered to the skin and subcutaneous tissue over the left common femoral artery. A microneedle was used to access the artery under ultrasound guidance. A wire was passed through this access in the needle was removed. A 4 Jamaican sheath was placed and flushed with saline. A Glidewire and flushing catheter were advanced of the distal aorta. An aortoiliofemoral arteriogram was performed. Please see interpretation above. Next, we went up and over the bifurcation with a Glidewire and flushing catheter and selected the right common femoral artery and superficial femoral artery. Arteriograms were performed. Please see interpretation above. We then exchange the sheath for a 6 Jamaican 65 cm destination sheath over the wire. The sheath was flushed with saline. A 6 x 200 [place] balloon was used to angioplasty the proximal and mid superficial femoral artery for three-minute inflations. Following this, there is a marked improvement in flow through the SFA with less than 10% residual stenosis at any of the previous stenotic areas. No dissection extravasation or embolization were noted. We then carefully navigated the wire through the popliteal artery and a 5 x 200 [place] balloon was used to angioplasty the distal SFA and the entire popliteal artery for three-minute inflations. Following this, there was a marked improvement in flow through the popliteal artery with less than 10% residual stenoses even at the area of heaviest stenosis in the distal popliteal artery. No dissection, embolization, or extravasation were noted. The sheath was advanced down to the proximal popliteal artery and after selecting this, a better image of the tibials was performed. We then exchange the wire for an O18 wire and navigated this down through the posterior tibial artery. It was difficult to navigate the wire passed the mid calf. It took quite a bit of effort to get the wire safely to the distal ankle. We also were not able to track the balloon over the wire due to heavy calcified plaque and stenosis in the mid vessel and distal vessel. Therefore, we started with angioplasty as far as we could advance the balloon, for three-minute inflations. Following this, we had opened the vessel enough at the area of sten osis at the balloon was able to pass and we were able to navigated down to the ankle. Another three-minute inflations was performed. Following this, there was improvement in flow but still not much outflow at the foot. I plan to come back to this vessel with an O14 wire and balloon, but first we utilized her existing 018 wire to navigate into the anterior tibial artery. I was able to cross to the distal ankle, but I could not cross into the foot into the dorsal pedis artery. Angioplasty along the length of the vessel with a 2.5 x 220 Kali balloon for three-minute inflations. There is a marked improvement in flow through the phoebe ry, and significant collaterals at the ankle that provided flow into the dorsal pedis artery and the distal foot. He then navigated the wire into the peroneal artery and was able to cross to the distal artery at the ankle. We then provided angioplasty along the length of the vessel for three-minute inflations with a 2.5 x 220 Kali balloon. We repeated this a second time due to calcified plaque resistant to angioplasty. Following this, there was flow all the way through to the ankle without significant residual stenosis. We then exchange the wire for an O14 wire and carefully tried to navigate this into the right posterior tibial artery again and across the occlusion in the distal posterior tibial artery into the medial plantar artery. After extensive effort, we were eventually able to class into the plantar artery. A 2 x 220 [place] balloon was used to angioplasty along the length of the vessel into the distal posterior tibial artery for three-minute inflations. Arteriogram following this still showed minimal outflow, so a second third and fourth angioplasty were performed. The vessel was wide open and a wire passed easily distally all the way to the distal foot, antegrade contrast did not flow past the ankle and became sluggish at the mid calf suggesting outflow issues, and I suspect due to spasm. Nitroglycerin was given through the popliteal sheath, but still no significant outflow was noted. Additional nitroglycerin was given into the right popliteal artery through the sheath for a total of 300 g while monitoring the blood pressure closely. He remained hemodynamically stable with systolic blood pressure in the [id number] range. Despite this additional nitroglycerin, the patient had limited peroneal and posterior tibial outflow past the mid calf on final imaging. I suspect this is spasm. Both vessels are easy to cross with the wire and fill with contrast from the distal to proximal but do not feel antegrade. I do not see signs of embolism thrombosis dissection or extravasation. There were 2 areas of heavy plaque in the posterior tibial artery that still were compressing the balloon on angioplasty. Therefore, I tried one more balloon at the distal posterior tibial artery, a 2.5 x 100 Kali balloon to give extra pressure just in that area. This did completely expand the vessel, but I still did not note any improvement in antegrade outflow with contrast injection through the posterior tibial artery. Since we had performed an extensive number of angioplasties and intervention, and he crossed all the way into the pedal vessels, I felt further intervention would not be fruitful. It is better at this point to leave the vessels alone and hopefully the spasm will release with a bit of time. I examined his foot prior to placing closure device at the left groin. The foot was warm and pink, with less than 1 second capillary refill, with full motor and sensory intact. He had a biphasic signal, strong, at the DP and PT arteries on the right. I think this is a good sign that we're dealing with spasm. I then exchange the sheath for short 6 Jamaican sheath and removed the wire. A Mynx closure device was deployed and left common femoral artery with good hemostasis. Pressure was held for 5 minutes and sterile dressings were applied. The patient was taken to recovery in stable condition. He tolerated the procedure and the sedation well. ESTIMATED BLOOD LOSS: Approximately 5 mL. COMPLICATIONS: None. PLAN: We will continue to monitor the patient and his perfusion postprocedure for 4 hours. He can resume his home diet medications. We will see him back in a week to check his left groin access site and his perfusion in the right lower extremity. Appreciate the opportunity to participate in the care of this patient. TISHA BOSS MD Oct 08, 2019 12:53
[2019-10-08 16:16] VITALS: BP 198/90
== END ==
LOC: M IRPRO 08:14
PROVIDERS: ATTEND Surgery Vascular Surgery
DX: I70.235 Atherosclerosis of native arteries of right leg with ulceration of other part of foot (principal); L97.519 Non-pressure chronic ulcer of other part of right foot with unspecified severity; I10 Essential (primary) hypertension; E11.40 Type 2 diabetes mellitus with diabetic neuropathy, unspecified; E11.51 Type 2 diabetes mellitus with diabetic peripheral angiopathy without gangrene; Z79.4 Long term (current) use of insulin; Z79.82 Long term (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; Z79.899 Other long term (current) drug therapy; Z89.512 Acquired absence of left leg below knee
CPT/HCPCS: 37224; 37228; 37232; 75710; 80048; 85027; 99152; 99153; C1725; C1729; C1760; C1769; C1887; C1894; J1644; J2250; J3010; Q9967

== ENCOUNTER → 2019-11-14 | Outpatient (REF) | payer MEDICARE, MEDICAID ==
[~2019-11-14] MED LIST changes: -ACETAMINOPHEN 325 MG TAB As Ordered ONE; -ACETAMINOPHEN TAB 650MG DOSE (2X325MG) PO PRN; +AMLO1TAB24 PO; -AMLO5TAB6 PO; -ASPI81TA85 PO; +ASPI81TA86 PO; +BIMA01SOL OS; +BRIM1OPD OS; +CEPH500C PO; -DEXTROSE 50% 50 ML SYRINGE As Ordered ONE; +FINA5TAB2 PO; +GLUC1KIT IM; +HYDR-3713 PO; -ISOVUE-300 61% 50ML VIAL As Ordered ONE; +KETO2CR EXT; -LIDOCAINE 1% MDV 20ML VIAL As Ordered ONE; -MIDAZOLAM INJ 2MG/2ML VIAL (J2250 PER 1MG) As Ordered ONE; +MIRA3350 PO; -NITROGLYCERIN IN D5W 25MG/250ML (100MCG/ML) As Ordered ONE; +PANT40TA29 PO; -PANT40TA3 PO; +PATIENT COMMENT; +PERI12LIQ SSP; +SANT250O8 TOP; -fentaNYL 100 MCG/2 ML INJECTION (J3010) As Ordered ONE
== END ==
LOC: M LAB REF 13:24
PROVIDERS: ATTEND Surgery
DX: L97.519 Non-pressure chronic ulcer of other part of right foot with unspecified severity (principal); E11.621 Type 2 diabetes mellitus with foot ulcer; E11.51 Type 2 diabetes mellitus with diabetic peripheral angiopathy without gangrene; I73.9 Peripheral vascular disease, unspecified
CPT/HCPCS: 11044; 87070; 88305; G0463

== ENCOUNTER → 2019-12-03 | Outpatient (CLI) | payer MEDICARE, MEDICAID ==
[~2019-12-03] MED LIST changes: +LEVO500T3 PO
--- NOTE | 2019-12-30 10:54 | REP ---
BILATERAL LOWER EXTREMITY ARTERIAL ULTRASOUND TECHNIQUE: Real-time munoz scale and color Doppler evaluation using linear high frequency transducer. CLINICAL INDICATION: Nonhealing ulceration at the right first toe and prior left below-knee amputation. FINDINGS: Extensive calcified atherosclerotic changes are noted throughout the bilateral lower extremity arterial structures. The right lower extremity demonstrates triphasic wave patterns from the common femoral artery to the popliteal artery where moderate stenosis is suggested. There is subsequent monophasic arterial wave patterns from the tibioperoneal trunk and proximal anterior tibial artery distally along with focal area of occlusion in the mid to distal posterior tibial artery. The left lower extremity demonstrates occlusion of the superficial femoral artery along with monophasic wave patterns in the common femoral artery, profunda, and popliteal artery below the level of occlusion, which demonstrates reversed flow likely revascularized via collateral vessel. IMPRESSION: Extensive calcified atherosclerotic changes bilaterally. Area of occlusion through the right posterior tibial artery and occlusion of the left superficial femoral artery. MTDD
== END ==
LOC: M RAD 12:34
PROVIDERS: ATTEND Physician Assistant
DX: I74.8 Embolism and thrombosis of other arteries (principal); L97.519 Non-pressure chronic ulcer of other part of right foot with unspecified severity; Z89.512 Acquired absence of left leg below knee; I70.235 Atherosclerosis of native arteries of right leg with ulceration of other part of foot

== ENCOUNTER → 2019-12-17 | Outpatient (CLI) | payer MEDICARE, MEDICAID ==
[~2019-12-17] MED LIST changes: -LEVO500T3 PO
[2019-12-17 11:16] LABS: HEMATOCRIT 32.8 % (42.0-52.0); HEMOGLOBIN 11.2 g/dl (13.5-17.5); MEAN CORPUSCULAR HEMOGLOBIN 32.3 pg (27.0-33.0); MEAN CORPUSCULAR HGB CONC 34.1 g/dl (32.0-36.5); MEAN CORPUSCULAR VOLUME 94.5 fl (80.0-96.0); PLATELET COUNT, AUTOMATED 214 10^3/uL (150-450); RED BLOOD COUNT 3.47 10^6/uL (4.30-6.10); WHITE BLOOD COUNT 6.8 10^3/uL (4.0-10.0)
[2019-12-17 11:22] LABS: CALCIUM LEVEL 9.3 MG/DL (8.8-10.2); CREATININE FOR GFR 1.36 MG/DL (0.70-1.30); GLOMERULAR FILTRATION RATE 56.9 (>49); POTASSIUM SERUM 4.6 MEQ/L (3.5-5.1)
== END ==
LOC: M LAB 09:49
PROVIDERS: ATTEND Physician Assistant
DX: L97.519 Non-pressure chronic ulcer of other part of right foot with unspecified severity (principal); I70.235 Atherosclerosis of native arteries of right leg with ulceration of other part of foot; Z89.512 Acquired absence of left leg below knee

== ENCOUNTER → 2019-12-31 | Outpatient (CLI) | payer MEDICARE, MEDICAID ==
[~2019-12-31] MED LIST changes: +ISOVUE-300 61% 50ML VIAL As Ordered ONE; +LEVO500T3 PO; +LIDOCAINE 1% MDV 20ML VIAL As Ordered ONE; +MIDAZOLAM INJ 2MG/2ML VIAL (J2250 PER 1MG) As Ordered ONE; +fentaNYL 100 MCG/2 ML INJECTION (J3010) As Ordered ONE
--- NOTE | 2019-12-31 11:07 | ROOPDOC ---
[facility] Report Of Operation Report of Operation DATE OF PROCEDURE: 12/31/19 PREPROCEDURE DIAGNOSES: Atherosclerosis of the [place] arteries with nonhealing wound right foot POSTPROCEDURE DIAGNOSES: Same PROCEDURE: 1. Ultrasound-guided access left common femoral artery 2. Aortoiliofemoral arteriogram 3. Selection right superficial femoral artery with runoff 4. Selection right popliteal artery with runoff 5. Selection distal peroneal artery with runoff 6. Selection distal posterior and medial plantar artery tibial artery with runoff 7. Angioplasty right popliteal artery with 4 x 100 and 5 x 40 [place] balloons 8. Angioplasty right peroneal artery with 2.5 x 220 [place] balloon 9. Angioplasty right posterior tibial artery and medial plantar artery with 2 x 220 [place] balloon, and posterior tibial artery with 2.5 x 220 [place]ali balloon 10. Completion arteriograms 11. Mynx closure left common femoral artery SURGEON: Kathy Boss MD ANESTHESIA: Local anesthesia 8 mL lidocaine. Moderate intravenous conscious sedation was supervised by Dr. Boss. The patient was independently monitored by a registered nurse assigned to the Department of radiology using automated blood pressure, EKG, and pulse oximetry. The detailed sedation record is permanently stored in the hospital information system. The following is a brief sedation record: Start time 09:33, stop time 10:42, Versed 1.5 mg IV, fentanyl 100 g IV, heparin 4000 units IV. CONTRAST: 58 mL Isovue-300 INDICATION FOR PROCEDURE: This is a very pleasant 59-year-old patient with severe tibial peripheral vascular disease and a nonhealing wound of the right foot. Risks benefits and alternatives to an arteriogram potential intervention were explained to the patient he is agreeable to proceed. Informed consent was obtained. INTERPRETATION: 1. The distal aorta and iliac segments are widely patent. The common iliac artery hypogastric artery and external iliac artery are widely patent bilaterally. 2. The right common femoral arteries widely patent and has excellent flow into the profunda. The superficial femoral artery has some areas of focal stenosis, less than 20%, and they are not flow-limiting. The popliteal arteries widely patent except for a focal area of 40% stenosis in the mid artery. Distal to this, the patient has runoff through the anterior tibial artery to the foot, through the peroneal artery to the proximal calf, and there is a flush occlusion of the posterior tibial artery. 3. Selection of the distal peroneal artery reveals that we are in the true lumen and after angioplasty the artery, there is widely patent flow through both the anterior tibial artery in the peroneal artery to the distal leg and foot. 4. Selection of the right posterior tibial artery and pedal vessels show that we are in the true lumen in the posterior tibial artery, right not in the true lumen in the distal pedal last dose. Repositioning of the wire several times yielded the same results. Therefore, after angioplasty of only the posterior tibial artery with a 2 x 2 120 [place] balloon, there was slow but it was sluggish, then we upsized to a 2.5 x 220 balloon and flow was improved, however the vessel has such limited outflow that the flow is very sluggish. 5. Completion arteriograms revealed excellent flow through the right popliteal artery into the anterior tibial artery and peroneal artery, and sluggish runoff in the posterior tibial artery. No dissections or extravasation were noted. REPORT OF OPERATION: Patient was brought to the angiographic suite in stable condition. His bilateral groins were prepped and draped in sterile fashion. A timeout was performed. Sedation was administered without complication. Local anesthesia was administered to the skin and subcutaneous tissue over the left groin and a microneedle was used to access left common femoral artery under ultrasound guidance. A wire was passed through this access and the needle was removed. A 4 [place] sheath was placed and flushed with saline. A Glidewire and flushing catheter were advanced in the distal aorta under fluoroscopic guidance. An aortoiliofemoral arteriogram were performed, please see interpretation above. We then went up and over the bifurcation with the Glidewire in the catheter and selected the right superficial femoral artery and right lower extremity runoff was performed. Please see interpretation above. We then exchange the sheath for a 6 x 90 cm destination sheath over the wire using a Seldinger technique and the sheath was flushed with saline. We angioplasty the right popliteal artery for three-minute inflations first with a 4 x 100 [place] balloon, which unfortunately did not provide a significant improvement, and then we upsized to a 5 x 40 [place] balloon and several three-minute inflations were performed, and following this there was only approximately 20% residual stenosis at the area of focal stenosis, and no dissection or extravasation were noted. We then exchange the wire for an O Amita King advantage and selected the peroneal artery. A 2.5 x 220 [place] balloon was advanced over the wire and this was used to advance the wire into the distal peroneal artery. The wire was removed and from this distal selection a quick arteriogram was performed to ensure we're in the true lumen. Following this, we are three-minute inflations long length of the vessel. There was excellent flow post angioplasty. No dissections or extravasation were noted. We then removed the balloon and placed and ankle glide cath over the wire to try to get into the flush occlusion at the origin the p osterior tibial artery. This was challenging to identify the origin as well as to cross it, but eventually we were able to successfully get through the posterior tibial artery and advanced the wire to the distal artery. This was challenging due to the chronic nature of the occlusion, however we were able to cross to the ankle. It appeared that we were within a true lumen of medial plantar artery, but no flow was noted on it injection in the pedal vessel. I think the vessels in the microcirculation are severely calcified and chronically occluded. Nevertheless, we angioplasty in 2 the origin of the plantar vessels were we had intermittent lumen flow with a 2 x 220 [place] balloon and three- minute inflations were performed along the length of the posterior tibial artery to its origin as well. Following this there was sluggish flow but we did see some contrast hitting the ankle. We then exchange for 2.5 x 220 [place] balloon and did three-minute inflations along the vessel again, and again tried to cross into unsuccessful. With contrast injection within the posterior tibial artery we could see that the vessel was widely patent, but still there such limited outflow at the pedal circulation that I am not sure this will stay open. Unfortunately, we could not provide better outflow at the foot despite opening all 3 tibials. This and concluded the procedure we exchange the wire for Glidewire O35, and exchange the sheath for short 6 [place] sheath. Mynx closure device was deployed with good hemostasis. Pressure was held for 10 minutes and sterile dressings were applied. The patient tolerated the procedure and the sedation well. ESTIMATED BLOOD LOSS: Approximately 5 mL. COMPLICATIONS: None. PLAN: We will see the patient back in a week to check his perfusion in his groin access site. Continue with local wound care right foot, and we encourage appropriate offloading, high-protein diet, avoiding nicotine, and tight glucose control to help with healing. Continue with Plavix and patient can restart in the morning. No strenuous exercise or lifting greater than 5 pounds for 48 hours. We appreciate the opportunity to participate in the care of this patient. KATHY BOSS MD Dec 31, 2019 11:07
[2019-12-31 15:04] VITALS: BP 134/60
== END ==
LOC: M IRPRO 08:23
PROVIDERS: ATTEND Surgery Vascular Surgery
DX: I70.235 Atherosclerosis of native arteries of right leg with ulceration of other part of foot (principal); L97.519 Non-pressure chronic ulcer of other part of right foot with unspecified severity
CPT/HCPCS: 37224; 37228; 37232; 75710; 99152; 99153; C1725; C1729; C1760; C1769; C1887; C1894; J1644; J2250; J3010; Q9967

== ENCOUNTER → 2020-01-27 | Outpatient (CLI) | payer MEDICARE, MEDICAID ==
[~2020-01-27] MED LIST changes: -ISOVUE-300 61% 50ML VIAL As Ordered ONE; -LEVO500T3 PO; -LIDOCAINE 1% MDV 20ML VIAL As Ordered ONE; -MIDAZOLAM INJ 2MG/2ML VIAL (J2250 PER 1MG) As Ordered ONE; -fentaNYL 100 MCG/2 ML INJECTION (J3010) As Ordered ONE
== END ==
LOC: M LABSMTC 09:39
PROVIDERS: ATTEND Anesthesiology
DX: Z01.818 Encounter for other preprocedural examination (principal); Z20.828 Contact with and (suspected) exposure to other viral communicable diseases
CPT/HCPCS: C9803; U0002

== ENCOUNTER 2020-01-28 10:42 | Day surgery (SDC) | payer MEDICARE, MEDICAID ==
[~2020-01-28] VITALS: Ht 175.3 cm; Wt 76.2 kg
[~2020-01-28 10:42] MED LIST changes: -BIMA01SOL OS; -BRIM1OPD OS; +BUPIVACAINE HCL 0.5% 30 ML VIAL As Ordered ONE; -CEPH500C PO; -GLUC1KIT IM; -HYDR-3713 PO; -KETO2CR EXT; +LIDOCAINE 1% SDV 30ML VIAL As Ordered ONE; +LR 1,000 ML IV ONE; -PATIENT COMMENT; -PERI12LIQ SSP; -SANT250O8 TOP; +ceFAZolin SOD 2 GM in IV 1 EA IV ONE; +dexameTHASONE 4 MG/ML 1ML VIAL (J1100 PER 1MG) As Ordered ONE
[2020-01-28] MEDS ORDERED: LIDOCAINE 2% 100MG/5ML SDV (FOR ANES.) As Ordered ONE (14:35)
[2020-01-28] MEDS ORDERED: propofoL 200 MG/20 ML VIAL As Ordered ONE (14:35)
[2020-01-28] MEDS ORDERED: MIDAZOLAM INJ 2MG/2ML VIAL (J2250 PER 1MG) As Ordered ONE (14:35)
[2020-01-28] MEDS ORDERED: ONDANSETRON 4MG/2ML VIAL As Ordered ONE (14:35)
[2020-01-28] MEDS ORDERED: fentaNYL 100 MCG/2 ML INJECTION (J3010) As Ordered ONE (14:35)
[2020-01-28] MEDS ORDERED: HYDR-3713 PO (15:49)
[2020-01-28 17:00] VITALS: BP 146/66
--- NOTE | 2020-01-29 15:12 | RO ---
DATE OF OPERATION: 01/28/2020 SURGEON: Micheal Hansen DPM HEALTH INSURANCE SPECIALIST: PREOPERATIVE DIAGNOSIS: Right hallux gangrene. POSTOPERATIVE DIAGNOSIS: Right hallux gangrene. PROCEDURE: Right hallux amputation. ANESTHESIA: Monitored anesthesia care, preop injection of 10 mL of 1:1 mixture of 1% Lidocaine plain and 0.5% Marcaine plain. ESTIMATED BLOOD LOSS: Minimal. MATERIALS: 3-0 nylon. INJECTABLES: None. SPECIMEN: Right hallux. COMPLICATIONS: None. CONDITION: Stable. INDICATIONS: The patient is a 59-year-old diabetic gentleman who has gangrene of his right hallux. He has been under the care of [facility] and is referred to al for amputation of the nonviable toe. The patient site and side were identified and marked in the preoperative area. Consent was reviewed and obtained. All risks, complications and alternatives to the procedure were explained to the patient in detail and all questions were answered. DESCRIPTION OF PROCEDURE: The patient was brought to the operating room and placed on the operating table in supine position. Monitored anesthesia care was administered by the anesthesia team. Preop injection of 10 mL of 1:1 mixture of 1% Lidocaine plain and 0.5% Marcaine plain was injected into the right foot. The right foot was prepped and draped in normal sterile fashion. Tourniquet was applied to the right ankle but was not used during the procedure. Toe was inspected. There was full black gangrene of the distal remaining portion of the hallux; there was sluggish capillary refill to the remaining part of the hallux. Proximal to this the skin appeared reasonably healthy. A racket style incision was made using #15 blade, the toe was disarticulated full thickness at the metatarsophalangeal joint. This was sent for pathology. Using a rongeur the cartilage of the metatarsal head was removed, site was then irrigated with normal saline. The tendons were reflected using #15 blade and the incision was repaired using 3-0 nylon. The patient was brought to PACU with vital signs stable and neurovascular status quo. It should be noted that there was not much bleeding during the procedure. The patient does have peripheral vascular disease. He underwent recent angio procedure and is as optimized as he is apt to be at this time. The patient is okay to be discharged. He will have follow up with Dr. Ledesma for ongoing wound care. ERLIN
== END 2020-01-28 17:00 | disposition home or self-care (01) ==
LOC: M SDC 10:42
PROVIDERS: ATTEND Podiatrist Foot & Ankle Surgery
DX: I96 Gangrene, not elsewhere classified (principal); M86.171 Other acute osteomyelitis, right ankle and foot; E10.52 Type 1 diabetes mellitus with diabetic peripheral angiopathy with gangrene; L40.9 Psoriasis, unspecified; Z79.4 Long term (current) use of insulin; Z96.41 Presence of insulin pump (external) (internal); F31.9 Bipolar disorder, unspecified; F41.9 Anxiety disorder, unspecified; M31.6 Other giant cell arteritis; E27.40 Unspecified adrenocortical insufficiency; Z89.512 Acquired absence of left leg below knee; Z87.891 Personal history of nicotine dependence; Z79.899 Other long term (current) drug therapy; Z79.02 Long term (current) use of antithrombotics/antiplatelets
CPT/HCPCS: 28820; 88305; J1100; J2250; J2405; J3010

== ENCOUNTER 2020-02-09 16:25 | Inpatient (IN) | payer MEDICARE, MEDICAID ==
[~2020-02-09] VITALS: Ht 175.3 cm; Wt 72.4 kg
[~2020-02-09 16:25] MED LIST changes: -BUPIVACAINE HCL 0.5% 30 ML VIAL As Ordered ONE; +HYDR-3713 PO; -LIDOCAINE 1% SDV 30ML VIAL As Ordered ONE; -LR 1,000 ML IV ONE; -ceFAZolin SOD 2 GM in IV 1 EA IV ONE; -dexameTHASONE 4 MG/ML 1ML VIAL (J1100 PER 1MG) As Ordered ONE
[2020-02-09] MEDS ORDERED: NS 500 ML IV ONE (17:00)
--- NOTE | 2020-02-09 17:15 | REP ---
INDICATION: Syncope/near-syncope. COMPARISON: 08/04/2017 FINDINGS: The technique utilized in obtaining the radiograph has magnified the cardiac silhouette and accentuated the interstitial markings. The superior mediastinal structures are midline. The cardiac silhouette is unremarkable in size, shape, and position. The diaphragmatic surfaces of the lungs are regular, and the costophrenic angles are clear. The pulmonary [place]ol[place] are clear. The imaged osseous structures are intact. IMPRESSION: There is no acute cardiopulmonary disease. <Electronically signed by Win Van > 02/09/20 [id number]
[2020-02-09 19:02] LABS: BASO % 0.3 % (0.0-1.0); EOS % 0.2 % (0.0-3.0); HEMATOCRIT 31.7 % (42.0-52.0); HEMOGLOBIN 10.6 g/dl (13.5-17.5); LYMPH # 1.1 10^3/uL (1.5-5.0); LYMPH % 8.7 % (24.0-44.0); MEAN CORPUSCULAR HEMOGLOBIN 30.9 pg (27.0-33.0); MEAN CORPUSCULAR HGB CONC 33.4 g/dl (32.0-36.5); MEAN CORPUSCULAR VOLUME 92.4 fl (80.0-96.0); MONO # 0.8 10^3/uL (0.0-0.8); MONO % 6.4 % (0.0-5.0); NEUTROPHILS # 10.8 10^3/uL (1.5-8.5); NEUTROPHILS % 83.4 % (36.0-66.0); PLATELET COUNT, AUTOMATED 386 10^3/uL (150-450); RED BLOOD COUNT 3.43 10^6/uL (4.30-6.10); WHITE BLOOD COUNT 12.9 10^3/uL (4.0-10.0)
[2020-02-09 19:07] LABS: VENOUS BASE EXCESS 2.5 (-2.0-2.0); VENOUS HCO3 28.4 MEQ/L (23.0-27.0); VENOUS O2 SATURATION 91.6 % (60.0-80.0); VENOUS PARTIAL PRESSURE CO2 49.7 mmHg (38.0-50.0); VENOUS PARTIAL PRESSURE O2 64.3 mmHg (30.0-50.0); VENOUS PH 7.375 UNITS (7.330-7.430); VENOUS STANDARD HCO3 26.6 MEQ/L; VENOUS TOTAL CO2 29.9 MEQ/L (24.0-28.0)
[2020-02-09 19:15] LABS: INR 1.04; PROTHROMBIN TIME 13.8 SECONDS (12.5-14.3)
[2020-02-09 19:42] LABS: MAGNESIUM LEVEL 1.9 MG/DL (1.8-2.4); THYROID STIMULATING HORMONE 1.92 uIU/ML (0.358-3.740)
[2020-02-09] MEDS ORDERED: PIPERACILLIN/TAZOBACTAM SOD 3.375 GM in D5W MINI-BAG PLUS 50 ML IV ONE (20:45)
[2020-02-09] MEDS ORDERED: NS 2,180 ML in IV 1 EA IV ONE (20:45)
[2020-02-09] MEDS: LEVEMIR (INSULIN DETEMIR) 1 UNITS/0.01ML SC SCH (21:00)
[2020-02-09] MEDS ORDERED: SANT250O8 TOP (21:22)
[2020-02-09] MEDS ORDERED: CEPH500C PO (21:22)
[2020-02-09] MEDS ORDERED: PRED5TA PO (21:22)
[2020-02-09] MEDS ORDERED: HYDR-3713 PO (21:22)
[2020-02-09] MEDS ORDERED: TRAM50TA2 PO (21:22)
[2020-02-09] MEDS ORDERED: BIMA01SOL OS (21:22)
[2020-02-09] MEDS ORDERED: BRIM1OPD OS (21:22)
[2020-02-09] MEDS ORDERED: PERI12LIQ SSP (21:22)
[2020-02-09] MEDS ORDERED: GLUC1KIT IM (21:22)
[2020-02-09] MEDS ORDERED: KETO2CR EXT (21:22)
[2020-02-09] MEDS ORDERED: PATIENT COMMENT (21:23)
[2020-02-09] MEDS ORDERED: MAALOX 30 ML SUSP *UDC PO PRN (21:30)
[2020-02-09] MEDS ORDERED: ACETAMINOPHEN TAB 650MG DOSE (2X325MG) PO PRN (21:30)
[2020-02-09] MEDS ORDERED: GLUCOSE 4GM CHEW TABLET PO PRN (21:45)
[2020-02-09] MEDS ORDERED: DEXTROSE 50% 50 ML SYRINGE IV PRN (21:45)
[2020-02-09] MEDS ORDERED: GLUCAGON INJ 1MG VIAL SC PRN (21:45)
--- NOTE | 2020-02-09 21:58 | HPEPDOC ---
[facility] Medical History & Physical Date of Admission Feb 09, 2020 Date of Service: Feb 09, 2020 Primary Care Physician: SONIA JUNG MD Attending Physician: RED QUIGLEY MD History and Physical CHIEF COMPLAINT: Right foot wound HISTORY OF PRESENT ILLNESS: Patient is a 59-year-old male who presented to the emergency department from Dr. Ledesma's office where he went earlier today for a wound on his right foot. Patient had a right great toe amputation performed on 01/29/[address] Hansen podiatry. Patient went to Dr. Ledesma for wound care and it was uncover the patient had exposed bone in the wound appeared infected. Because of this, Dr. Ledesma referred the patient to the emergency department after debridement in the office for IV antibiotics and pain control. Patient says that his foot is extremely painful at this time. Patient denies feeling ill at all denies having any fevers or chills. Patient says that the wound has gotten worse since the initial amputation. Patient had an amputation of the left leg below the knee which she said did not have any issues in the healing process. Patient denies any other symptoms at this time. PAST MEDICAL HISTORY: 1. Type 1 diabetes, on insulin pump 2. Brain tumor. 3. Temporal arteritis 4. Adrenal insufficiency 5. peripheral vascular disease PAST SURGICAL HISTORY: 1. Left BKA. 2. Cataract surgery. 3. Right great toe amputation. 4. Fatty tumor removal 5. Right knee surgery 6. Right wrist surgery SOCIAL HISTORY: Patient is a former smoker in has not had alcohol for about 30 years. Patient denies any other illicit drug use. Patient was at home alone. 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 ALLERGIES: Please see below. REVIEW OF SYSTEMS: General: Patient denies fevers HEENT: Patient denies headaches Cardiovascular: Patient denies chest pain Respiratory: Patient denies shortness of breath, cough GI: Patient denies abdominal pain, nausea, vomiting, diarrhea : Patient denies increased frequency or pain with urination Extremities: Patient reports pain in his right foot as above. Neurological: Patient denies numbness or tingling in legs Skin: Patient denies any new rashes or lesions. Hematologic: Patient denies any easy bruising. Lymphatic: Patient denies any lumps lumps or bumps in neck, axilla, or groin HOME MEDICATIONS: Please see below. PHYSICAL EXAMINATION: VITAL SIGNS: See below General: Alert and oriented male patient who laying on Jacqueline try walked into the room. Patient appeared uncomfortable especially when his right foot was touched but did not appear to be in any acute distress. HEENT: Normocephalic, atraumatic, moist mucous membranes. Neck: No lymphadenopathy or thyromegaly Cardiac: Regular rate and rhythm, 3/6 systolic murmur heard loudest over the second intercostal space on the right. Pulm: Clear to auscultation bilaterally. No wheezes, rhonchi, rales Abd: Nondistended, nontender to palpation, normal bowel sounds Ext: Large wound on the right foot with exposed metatarsal bone. There is surrounding erythema. The wound is exquisitely painful to touch. There is no purulent drainage coming from the wound. Skin: Other than the wound described above, there is no other evidence of rashes or other lesions on the skin LABORATORY DATA: See below. IMAGING: A chest x-ray performed on 02/09/2020 was reported to show no acute cardiopulmonary disease. MICROBIOLOGY: Please see below. ASSESSMENT: Patient is a 59-year-old male who is 11 days postoperative from a right great toe amputation who presented to the emergency department from Dr. Ledesma's office with worsening of the wound with exposed bone. . PLAN: 1. Diabetic foot wound. Patient has exposed bone and has exquisite pain to the area. Patient was started on IV vancomycin and Zosyn for broad-spectrum antibiotics at this time. Podiatry consultation will be necessary tomorrow morning for further surgical debridement of the area. Patient has been held nothing by mouth after midnight so that he is taken to the operating room tomorrow, patient will be prepared for any procedures that may need to be done. Patient will be placed on pain control medications with breakthrough morphine as well. 2. Sirs criteria patient was initially hypotensive, has a leukocytosis, and a positive lactic acidosis. Patient has received IV fluids and will be receiving IV antibiotics as above. We'll continue to monitor the patient response to both fluids and antibiotics. At the time of admission, patient was normotensive. 3. Type 1 diabetes. Patient is currently on insulin pump that is managed by endo crinology in [place], [place]. We will allow him to continue on his insulin pump will be checking his fingersticks every 6 hours. 4. Adrenal insufficiency. We'll continue the patient's home medications with prednisone and fludrocortisone. 5. DVT prophylaxis: Heparin. 6. CODE STATUS: At this time, patient would like to be full code however, he did express interest in discussing advanced directives at some point either during this hospitalization or after discharge. Vital Signs Vital Signs Date Time Temp Pulse Resp B/P (MAP) Pulse Ox O2 Delivery O2 Flow Rate FiO2 02/09/20 18:57 76 112/57 (75) 75 122/56 (78) 78 81/44 (56) 02/09/20 16:55 20 87 02/09/20 16:26 97.7 Room Air Laboratory Data Labs 24H Laboratory Tests 2 02/09/20 16:52: Immature Granulocyte % (Auto) 1.0, Neutrophils (%) (Auto) 83.4H, Lymphocytes (%) (Auto) 8.7L, Monocytes (%) (Auto) 6.4H, Eosinophils (%) (Auto) 0.2, Basophils (%) (Auto) 0.3, Neutrophils # (Auto) 10.8H, Lymphocytes # (Auto) 1.1L, Monocytes # (Auto) 0.8, Eosinophils # (Auto) 0.0, Basophils # (Auto) 0.0, Nucleated Red Blood Cells % (auto) 0.0, Prothrombin Time 13.8, Prothromb Time International Ratio 1.04, Lactic Acid Level 2.5*H, Magnesium Level 1.9, Thyroid Stimulating Hormone (TSH) 1.920 02/09/20 18:03: Blood Gas Bicarbonate Standard 26.6, Venous Blood pH 7.375, Venous Blood Partial Pressure CO2 49.7, Venous Blood Partial Pressure O2 64.3H, Venous Blood Total Carbon Dioxide 29.9H, Venous Blood HCO3 28.4H, Venous Blood Oxygen Saturation 91.6H, Venous Blood Base Excess 2.5H 02/09/20 19:14: Bedside Glucose (Misc Panel) 220H CBC/BMP Laboratory Tests 02/09/20 16:52 Microbiology Microbiology 02/09/20 Blood Culture, Received Pending 02/09/20 Blood Culture, Received Pending Home Medications Scheduled Aspirin (Aspirin EC) 81 Mg Tab, 81 MG PO DAILY Atorvastatin Calcium (Atorvastatin Calcium) 40 Mg Tab, 40 MG PO DAILY Bimatoprost (Lumigan) 0.01% 2.5ML Drops, 1 DROP OS QHS Brimonidine Tartrate (Alphagan P) 0.1% 5ML Drops, 1 DROP OS BID Chlorhexidine Gluconate (Chlorhexidine Gluconate) 473 Ml Mouthwash, 15 ML SSP BID AFTER BRUSHING AND FLOSSING Citalopram Hydrobromide (Citalopram HBr) 40 Mg Tab, 40 MG PO DAILY Clopidogrel Bisulfate (Clopidogrel) 75 Mg Tab, 75 MG PO DAILY Collagenase Clostridium Hist. (Santyl) 30 Gm Oint...g., 1 DOSE TOP DAILY APPLY TO ULCER WITH NICKEL THICKNESS Ferrous Sulfate (Ferrous Sulfate) 325 Mg Tab, 325 MG PO QWEEK Finasteride (Finasteride) 5 Mg Tablet, 5 MG PO DAILY Fludrocortisone Acetate (Fludrocortisone Acetate) 0.1 Mg Tablet, 0.1 MG PO DAILY Gabapentin (Gabapentin) 300 Mg Cap, 300 MG PO BID Insulin Human Lispro (Novolog) 100 Unit/1 Ml Vial, 1 DOSE SC ASDIRECTED UP TO 100 UNITS DAILY CONTINUOUS THROUGH INSULIN PUMP Ketoconazole (Ketoconazole) 15 Gm Cream..g., 1 DOSE EXT BID APPLY SPARINGLY TO FACE AND SCALP Levofloxacin (Levofloxacin) 500 Mg Tablet, 500 MG PO QHS Pantoprazole Sodium (Pantoprazole Sodium) 40 Mg Tablet.dr, 40 MG PO BID Prednisone (Prednisone) 5 Mg Tablet, 5 MG PO DAILY Scheduled PRN Glucagon,Human Recombinant (Glucagon Emergency Kit) 1 Mg Vial, 1 MG IM ASDIRECTED PRN for LOW BLOOD SUGAR Hydrocodone/Acetaminophen (Hydrocodone-Acetamin 5-325 mg) 1 Each Tablet, 1 TAB PO Q6H PRN for PAIN MDD 4 Hydrocodone/Acetaminophen (Hydrocodone-Acetamin 5-325 mg) 1 Each Tablet, 1 TAB PO BIDP PRN for pain Tramadol HCl (Tramadol HCl) 50 Mg Tablet, 50 MG PO Q8H PRN for PAIN Miscellaneous Medications [Patient Comment] UNABLE TO COMMUNICATE WITH PATIENT; COMPLETED MED REC VIA CLINIC VISITS AND EXTERNAL MED HISTORY Allergies Coded Allergies: No Known Allergies (Unverified , 09/11/19) A-FIB/CHADSVASC A-FIB History Current/History of A-Fib/PAF?: No GME ATTESTATION GME ATTESTATION My faculty preceptor for this patient encounter was physically present during the encounter and was fully available. All aspects of the patient interview, examination, medical decision making process, and medical care plan development were reviewed and approved by the faculty preceptor. The faculty preceptor is aware and concurs with the plan as stated in the body of this note and will attest to such by his/her cosignature. ATTENDING NOTE IS[place], have independently examined this patient and performed my own physical exam, as well as reviewed the documentation and edited where necessary. I have discussed in detail with the resident / student the findings and plan of treatment as documented by the resident / student and edited their note. I agree with their findings and treatment plan and have edited their documentation. I will continue to follow the patient during this hospital stay. FRANCA CEDENO DO Feb 09, 2020 21:58 RED QUIGLEY MD Feb 17, 2020 05:13
[2020-02-09] MEDS: MORPHINE 2 MG/ML 1ML VIAL (J2270) IV PRN (22:36)
[2020-02-10] VITALS (9 sets, daily range): BP systolic 102–171; BP diastolic 51–87
[2020-02-10] MEDS ORDERED: VANCOMYCIN HCL 750 MG, VIAL MATE ADAPTER 1 EACH in D5W 250 ML IV ONE ×4 (01:00)
--- NOTE | 2020-02-10 01:03 | ECGEPIP ---
[facility] - ED Test Date: 2020-02-09 Pat Name: SEBASTIEN GARCIA Department: Room: - Gender: Male Production Scheduler: ivonne : 1960 Requested By: Lorie Garcia Order Number: [id number] Reading MD: Lobito Armstrong Measurements Intervals [place] Rate: 70 P: 66 [place]: 131 QRS: 64 QRSD: 82 T: 60 QT: 394 QTc: 425 Interpretive Statements SINUS RHYTHM WITH OCCASIONAL SUPRAVENTRICULAR PREMATURE COMPLEXES SIMILAR TO 08/05/19 Electronically Signed on 02-10-2020 1:03:03 EST by Lobito Armstrong
[2020-02-10 01:59] LABS: CREATININE FOR GFR 1.54 MG/DL (0.70-1.30); GLOMERULAR FILTRATION RATE 49.3 (>49)
[2020-02-10] MEDS: NS 1,000 ML IV SCH ×2 (02:09→05:50)
[2020-02-10] MEDS ORDERED: VANCOMYCIN 750MG/25ML VIAL As Ordered ONE (02:47)
[2020-02-10] MEDS ORDERED: HumuLIN R (REGULAR) INSULIN (NovoLIN R) **100U/ML** PER UNIT IV STA (03:09)
[2020-02-10] MEDS ORDERED: DEXTROSE 50% 50 ML SYRINGE IV STA (03:09)
[2020-02-10] MEDS ORDERED: SOD POLYSTYRENE SULFONATE SUSP 15 GM/60 ML UD PO ONE (03:15)
[2020-02-10 03:33] LABS: MAGNESIUM LEVEL 1.8 MG/DL (1.8-2.4)
[2020-02-10] MEDS: PIPERACILLIN/TAZOBACTAM SOD 4.5 GM in D5W MINI-BAG PLUS 50 ML IV SCH ×3 (04:26→20:12)
[2020-02-10] MEDS ORDERED: amLODIPine 5 MG TAB PO ONE (05:15)
--- NOTE | 2020-02-10 05:51 | ECGEPIP ---
[facility] Test Date: 2020-02-10 Pat Name: SEBASTIEN GARCIA Department: Room: [place] [address] Gender: Male Nursing Assistant: ronn : 1960 Requested By: RED Chavez Order Number: [id number] Reading MD: Mich Daly Measurements Intervals [place] Rate: 75 P: 33 PA: 153 QRS: 10 QRSD: 89 T: 8 QT: 395 QTc: 444 Interpretive Statements Normal sinus rhythm Nonspecific T wave abnormality Significant axis shift since prior tracing of 02/09/2020 Frontal axis is consistent with tracings prior to 02/09/2020, suggesting limb lead misplacement on that date Electronically Signed on 02-10-2020 5:51:04 EST by Mich Daly
[2020-02-10] MEDS: HumaLOG INSULIN (NovoLOG) PER UNIT SC SCH ×4 (06:03→18:12)
[2020-02-10 07:36] LABS: BASO % 0.4 % (0.0-1.0); EOS # 0.1 10^3/uL (0.0-0.5); EOS % 0.8 % (0.0-3.0); HEMOGLOBIN 9.6 g/dl (13.5-17.5); LYMPH # 1.7 10^3/uL (1.5-5.0); LYMPH % 15.4 % (24.0-44.0); MEAN CORPUSCULAR HEMOGLOBIN 30.6 pg (27.0-33.0); MEAN CORPUSCULAR HGB CONC 33.1 g/dl (32.0-36.5); MEAN CORPUSCULAR VOLUME 92.4 fl (80.0-96.0); MONO # 0.8 10^3/uL (0.0-0.8); MONO % 7.7 % (0.0-5.0); NEUTROPHILS # 8.1 10^3/uL (1.5-8.5); PLATELET COUNT, AUTOMATED 367 10^3/uL (150-450); RED BLOOD COUNT 3.14 10^6/uL (4.30-6.10); WHITE BLOOD COUNT 10.8 10^3/uL (4.0-10.0)
[2020-02-10 08:05] LABS: CALCIUM LEVEL 8.5 MG/DL (8.8-10.2); CREATININE FOR GFR 1.6 MG/DL (0.70-1.30); GLOMERULAR FILTRATION RATE 47.2 (>49); POTASSIUM SERUM 4.3 MEQ/L (3.5-5.1)
[2020-02-10] MEDS: HEPARIN SOD (PORCINE) 5000UNITS/ML 1ML VIAL/SYRINGE SC SCH ×2 (09:00→20:51)
[2020-02-10] MEDS: FERROUS SULFATE 325MG TAB PO SCH (09:03)
[2020-02-10] MEDS: CitaloPRAM (CeleXA) 20 MG TAB PO SCH (09:03)
[2020-02-10] MEDS: ASPIRIN 81 MG ENTERIC TAB PO SCH (09:03)
[2020-02-10] MEDS: PANTOPRAZOLE 40MG TAB (PROTONIX) PO SCH ×2 (09:03→20:12)
[2020-02-10] MEDS: ATORVASTATIN 20 MG TAB PO SCH (09:03)
[2020-02-10] MEDS: FLUDROCORTISONE ACETATE 0.1 MG TAB PO SCH (09:03)
[2020-02-10] MEDS: FINASTERIDE 5 MG TAB PO SCH (09:03)
[2020-02-10] MEDS: CLOPIDOGREL 75 MG TAB PO SCH (09:03)
[2020-02-10] MEDS: predniSONE 5 MG TAB PO SCH (09:03)
[2020-02-10] MEDS: GABAPENTIN 300 MG CAP PO SCH ×2 (09:03→20:12)
[2020-02-10] MEDS: BRIMONIDINE 0.1% OPHTH SOLN 5 ML OS SCH ×2 (09:04→20:12)
--- NOTE | 2020-02-10 11:13 | IPNPDOC ---
Text Note Date of Service The patient was seen on 02/10/20. NOTE Subjective: Mr. Girard is a 59-year-old male patient with history of type 1 diabetes on insulin pump, peripheral vascular disease, depression and renal insufficiency who is status post amputation of right great toe 11 days ago presented to the emergency department from Dr. Ledesma's office worsening of the wound with exposed bone. Patient seen at bedside today, he reports to be feeling very tired and didn't sleep at night as he got a room at around 5.30am and is feeling sleepy now. He denies to any pain at this movement. Denies having any fever, chills. Objective: General: Patient is awake, alert, oriented times three, laying in bed , no apparent distress. Cardiovascular: Rate and rhythm normal, heard a grade 2 systolic murmur more prominent on the second right intercostal space. Respiratory: Chest is clear to auscultation bilaterally, No rhonchi, wheezes or rubs. Abdomen: Soft, bowel sounds positive, no bruits. No tenderness on palpation. Extremities: Open necrotic wound measuring 3x4cm on the right foot with exposed first metatarsal bone. There is surrounding erythema. He reports having pain on touch. There is no purulent drainage noted. He has a above knee amputation in the left leg few years ago Spine: No kyphosis, no paraspinal tenderness, no costovertebral tenderness. Central nervous system (MOTION PICTURE SET GRIP): Awake, alert and fully oriented. Skin: Except for the wound as described above, No other rashes, lesions, ulcerations noted Assessment: Patient is a 59-year-old male who presented to the emergency department from Dr. Ledesma's office with worsening with exposed bone, he is status post right great toe amputation 11 days ago. Plan: Diabetic foot wound cannot rule-out osteomyelitis: - He has a necrotic wound with surrounding erythema and pain. - Will continue IV vancomycin and zosyn #day 2. - Podiatry consulted, Dr. Hansen is planning to take him to surgery and do a debridement today. Will appreciate his input and follow his recommendations. - Keep him nothing by mouth as he'll be going for surgery today. - Will continue has pain medication with breakthrough morphine as well. Possible infection: - Patient had irritated white count on admission of 12.9 today's white count is 10.8. - On admission he had an elevated lactic acid repeat lactate was normal. - Patient had no fever overnight. - Will continue IV antibiotics as described above - On admission patient was hypotensive and was given IV fluids. Type 1 diabetes: - Patient is on insulin pump at home will continue that. - Will check fingersticks every 6 hours. - continue atorvastatin 40mg. - Patient has a HbA1c of 8.1 in aug, 2019 will repeat it with morning labs. - Patient is not on TAYA inhibitor was at home will recommend starting him on upon discharge or when he follow-up with the PCP. Adrenal insufficiency: - Continue his home medication prednisone and fludrocortisone. Peripheral vascular disease: - Will continue aspirin 81 mg, Plavix 75 mg, atorvastatin 40 mg Depression: - Will continue citalopram 20 mg DVT prophylaxis: - On heparin. 5000 units subcutaneous GI prophylaxis: - Protonix 40 mg Attending Note: Patient seen and examined independently. Agree with resident's note. Attending Note: Patient seen and examined independently. Agree with resident's note. VS,Linda, I+O VS, [place], I+O Laboratory Tests 02/09/20 16:52 02/10/20 01:28 02/10/20 07:17 Vital Signs Date Time Temp Pulse Resp B/P (MAP) Pulse Ox O2 Delivery O2 Flow Rate FiO2 02/10/20 06:03 73 164/78 02/10/20 05:30 97.9 16 100 Room Air I&O- Last 24 Hours up to 6 AM 02/10/20 06:00 Intake Total 3330 ml Balance 3330 ml Deirdre Harris MD Feb 10, 2020 11:13 ESVIN MISHRA MD Feb 10, 2020 17:33
--- NOTE | 2020-02-10 14:41 | CR ---
DATE OF CONSULTATION: 02/10/2020 REASON FOR CONSULTATION: Right foot ulceration. HISTORY OF PRESENT ILLNESS: This is a 59-year-old gentleman who was brought to the emergency room from the wound care center with worsening of his right foot. He had an amputation by myself of his right hallux. The patient has history of peripheral vascular disease. He had reperfusion by Dr. Boss but per the vascular procedure note there was not significant blood flow able to be gained past the level of the ankle. Shortly after on his first postop visit he had signs of incision site failure which apparently has worsened. He now has eschar and exposed bone. MEDICAL HISTORY: Significant for diabetes, brain tumor, temporal arteritis, adrenal insufficiency, peripheral vascular disease. SURGICAL HISTORY: Left below-knee amputation, cataracts, right hallux amputation, fatty tumor removal, right knee and wrist surgery. FAMILY HISTORY: Diabetes. SOCIAL HISTORY: Former smoker, former alcohol use. ALLERGIES: NO KNOWN DRUG ALLERGIES. REVIEW OF SYSTEMS: He denies nausea, vomiting, fever or chills. Notes pain in his foot. Vitals: He has remained afebrile. LABS: White blood cell count today 10.8, hemoglobin 9.6. Lactic acid on admission was 2.5. Creatinine 1.6. EXAMINATION: Lower extremity examination reveals on the right foot pedal pulses are nonpalpable. There was amputation of the right hallux. There was exposed necrotic 1st metatarsal head with surrounding eschar. ASSESSMENT: 59-year-old diabetic male with peripheral vascular disease with right foot gangrene. PLAN: Will plan amputation of the 1st metatarsal and ray with removal of nonviable tissue. He is NPO, will plan for today around 4 p.m. Discussed with the patient and it is strongly likely that he is going to require leg amputation. He does not have circulation to the foot with limited ability for reperfusion. If there is further failure of the surgical site will re- consult vascular for amputation. ERLIN
[2020-02-10] MEDS ORDERED: BUPIVACAINE HCL 0.5% 10ML VIAL As Ordered ONE (15:37)
[2020-02-10] MEDS ORDERED: LIDOCAINE 1% MDV 20ML VIAL As Ordered ONE ×2 (15:37→15:38)
[2020-02-10] MEDS ORDERED: propofoL 200 MG/20 ML VIAL As Ordered ONE (15:43)
[2020-02-10] MEDS ORDERED: LIDOCAINE 2% 100MG/5ML SDV (FOR ANES.) As Ordered ONE (15:43)
[2020-02-10] MEDS ORDERED: fentaNYL 100 MCG/2 ML INJECTION (J3010) As Ordered ONE (15:44)
[2020-02-10] MEDS ORDERED: MIDAZOLAM INJ 2MG/2ML VIAL (J2250 PER 1MG) As Ordered ONE (15:44)
[2020-02-10] MEDS ORDERED: KETOROLAC 60MG 2ML VIAL As Ordered ONE (16:46)
[2020-02-10] MEDS ORDERED: ONDANSETRON 4MG/2ML VIAL As Ordered ONE (16:46)
[2020-02-10] MEDS ORDERED: KETOROLAC 30 MG/ML 1ML VIAL IV PRN (16:51)
[2020-02-10] MEDS ORDERED: METOCLOPRAMIDE INJ 10MG/2ML VIAL (J2765 PER 1) IV PRN (17:30)
[2020-02-10] MEDS ORDERED: PERCOCET 5MG/325MG TAB PO PRN (17:30)
[2020-02-10] MEDS ORDERED: LR 1,000 ML IV SCH (17:30)
[2020-02-10] MEDS ORDERED: ONDANSETRON 4MG/2ML VIAL IV PRN (17:30)
[2020-02-10] MEDS ORDERED: fentaNYL 100 MCG/2 ML INJECTION (J3010) IV PRN (17:30)
[2020-02-10] MEDS: VANCOMYCIN HCL 1,000 MG, VIAL MATE ADAPTER 1 EACH in D5W 250 ML IV SCH (18:11)
[2020-02-10] MEDS: LEVEMIR (INSULIN DETEMIR) 1 UNITS/0.01ML SC SCH (20:12)
[2020-02-10] MEDS: MORPHINE 2 MG/ML 1ML VIAL (J2270) IV PRN (20:13)
[2020-02-10] MEDS: NORCO, ANEXSIA 5/325MG TABLET (HYDROcodone/ACETAMINOPHEN) PO PRN (22:27)
[2020-02-11] MEDS: HumaLOG INSULIN (NovoLOG) PER UNIT SC SCH ×4 (00:51→16:48)
[2020-02-11 02:15] VITALS: BP 134/70
[2020-02-11] MEDS: PIPERACILLIN/TAZOBACTAM SOD 4.5 GM in D5W MINI-BAG PLUS 50 ML IV SCH ×3 (03:15→18:29)
[2020-02-11] MEDS: MORPHINE 2 MG/ML 1ML VIAL (J2270) IV PRN (03:16)
[2020-02-11] MEDS: VANCOMYCIN HCL 1,000 MG, VIAL MATE ADAPTER 1 EACH in D5W 250 ML IV SCH ×2 (04:37→16:47)
[2020-02-11] MEDS: NORCO, ANEXSIA 5/325MG TABLET (HYDROcodone/ACETAMINOPHEN) PO PRN (06:44)
[2020-02-11 06:57] VITALS: BP 144/72
[2020-02-11 07:14] LABS: BASO # 0.1 10^3/uL (0.0-0.2); BASO % 0.5 % (0.0-1.0); EOS # 0.3 10^3/uL (0.0-0.5); HEMATOCRIT 31.1 % (42.0-52.0); HEMOGLOBIN 10.4 g/dl (13.5-17.5); LYMPH # 2.5 10^3/uL (1.5-5.0); LYMPH % 19.4 % (24.0-44.0); MEAN CORPUSCULAR HEMOGLOBIN 30.8 pg (27.0-33.0); MEAN CORPUSCULAR HGB CONC 33.4 g/dl (32.0-36.5); MONO # 1.1 10^3/uL (0.0-0.8); MONO % 8.4 % (0.0-5.0); NEUTROPHILS # 8.9 10^3/uL (1.5-8.5); NEUTROPHILS % 69.1 % (36.0-66.0); PLATELET COUNT, AUTOMATED 423 10^3/uL (150-450); RED BLOOD COUNT 3.38 10^6/uL (4.30-6.10); WHITE BLOOD COUNT 12.9 10^3/uL (4.0-10.0)
[2020-02-11 07:34] LABS: C REACTIVE PROTEIN QUANTITATIV 9.54 MG/DL (0.00-0.30); CALCIUM LEVEL 8.6 MG/DL (8.8-10.2); CREATININE FOR GFR 1.31 MG/DL (0.70-1.30); GLOMERULAR FILTRATION RATE 59.4 (>49); POTASSIUM SERUM 4.4 MEQ/L (3.5-5.1)
[2020-02-11 07:37] LABS: HEMOGLOBIN A1c 7.1 %
[2020-02-11] MEDS: predniSONE 5 MG TAB PO SCH (07:55)
[2020-02-11] MEDS: FLUDROCORTISONE ACETATE 0.1 MG TAB PO SCH (07:55)
[2020-02-11] MEDS: FERROUS SULFATE 325MG TAB PO SCH (07:55)
[2020-02-11] MEDS: ATORVASTATIN 20 MG TAB PO SCH (07:55)
[2020-02-11] MEDS: FINASTERIDE 5 MG TAB PO SCH (07:55)
[2020-02-11] MEDS: ASPIRIN 81 MG ENTERIC TAB PO SCH (07:55)
[2020-02-11] MEDS: GABAPENTIN 300 MG CAP PO SCH ×2 (07:55→21:24)
[2020-02-11] MEDS: HEPARIN SOD (PORCINE) 5000UNITS/ML 1ML VIAL/SYRINGE SC SCH ×2 (07:55→21:24)
[2020-02-11] MEDS: PANTOPRAZOLE 40MG TAB (PROTONIX) PO SCH ×2 (07:55→21:24)
[2020-02-11] MEDS: CLOPIDOGREL 75 MG TAB PO SCH (07:55)
[2020-02-11] MEDS: CitaloPRAM (CeleXA) 20 MG TAB PO SCH (07:56)
[2020-02-11] MEDS: BRIMONIDINE 0.1% OPHTH SOLN 5 ML OS SCH ×2 (07:56→21:25)
[2020-02-11 08:23] LABS: ERYTHROCYTE SEDIMENTATION RATE 124 mm/hr (0-20)
--- NOTE | 2020-02-11 09:16 | RO ---
DATE OF OPERATION: 02/10/2020 PREOPERATIVE DIAGNOSIS: Right foot gangrene. POSTOPERATIVE DIAGNOSIS: Right foot gangrene. PROCEDURE: Right foot first metatarsal amputation and wound debridement; excisional including subcutaneous tissue and bone. SURGEON: Micheal Hansen DPM BASEBALL [employer]IRE [employer]: None. ANESTHESIA: Monitored anesthesia care. PREOPERATIVE INJECTION: 19 mL of 1:1 mixture of 1% Lidocaine plain and 0.5% Marcaine plain. ESTIMATED BLOOD LOSS: Minimal. MATERIALS: None. SPECIMENS: Right first metatarsal bone and tissue. COMPLICATIONS: None. CONDITION: Stable. INDICATIONS FOR PROCEDURE: Hermann Girard is a 59-year-old, diabetic male who was admitted yesterday with worsening of his right foot. He had amputation due to gangrene. Following this, the wound immediately worsened with some gangrenous changes spreading proximal. He had debridement at the wound care center with now exposed bone. Decision was made to bring him to the operating room for amputation of the remaining metatarsal. The patient's side and site were identified and marked in the preoperative area. Consent was reviewed and obtained. All risks, complications, and alternatives to the procedure were explained to the patient in detail and all questions were answered. DESCRIPTION OF PROCEDURE: The patient was brought to the operating room and placed on the operating room table in the supine position. Monitored anesthesia care was delivered by the anesthesia team. Preoperative injection of 19 mL of a 1:1 mixture of 1% lidocaine plain and 0.5% Marcaine plain were injected to the right foot. The right foot was prepped and draped in normal sterile fashion. The tourniquet was applied to the right ankle but was not inflated during the procedure. The patient's wound was inspected. There were gangrenous changes with exposed metatarsal head and black tissue surrounding it. Using a #10 blade, the gangrenous tissue was excised. The metatarsal bone was resected proximal to the necrotic tissue. Wound margins were debrided until there were some bleeding edges at the tissue. Once all nonviable tissue was removed, the site was irrigated with normal saline and packed with saline gauze. The patient was brought to the PACU with vital signs stable and neurovascular status intact. He will be readmitted to the floor for monitoring. It was explained to the patient the due to his significantly poor circulation, he may ultimately require leg amputation. We will decide this based on progression of wound over the next few days. ERLIN
--- NOTE | 2020-02-11 11:07 | IPNPDOC ---
Text Note Date of Service The patient was seen on 02/11/20. NOTE Mr. Girard is a 59-year-old male patient with history of type 1 diabetes on insulin pump, peripheral vascular disease, depression and renal insufficiency who is status post amputation of right great toe 11 days ago presented to the emergency department from Dr. Ledesma's office worsening of the wound with exposed bone. Subjective: Patient seen at bedside today, he was drowsy, was able to respond verbally. He reports having good night sleep denies having any chest pain, palpitation, abdominal pain. Denies any fever or chills Objective: General: Patient is drowsing, Able to wake up when talking, oriented, sitting in chair , no apparent distress. Cardiovascular: Rate and rhythm normal, heard a grade 2 systolic murmur more prominent on the second right intercostal space. Respiratory: Chest is clear to auscultation bilaterally, No rhonchi, wheezes or rubs. Abdomen: Soft, bowel sounds positive, no bruits. No tenderness on palpation. Extremities: He had his first metatarsal amputation yesterday his leg is wrapped up after the surgery. Spine: No kyphosis, no paraspinal tenderness, no costovertebral tenderness. Assessment: Patient is a 59-year-old male who presented to the emergency department from Dr. Ledesma's office with worsening with exposed bone, he is status post right great toe amputation 11 days ago. Diabetic foot. Cannot rule out osteomyelitis: Patient was taken to surgery by Dr. Hansen welding machine operator ultrasonic yesterday evening and did have an amputation of his right first metatarsal. We'll follow his recommendations. - Will continue IV vancomycin and Zosyn # day2. Will guide his antibiotics based on the cultures. - Patient had no fever overnight. And is tolerating food. -Leukocytosis white count of 12.9, ESR 124, CRP 9.54. Diabetes mellitus type 1: - Continue insulin pump. We will check fingerstick every 6 hours. Continue atorvastatin 40 mg. - Patient has an HbA1c of 7.1 - Patient is not on TAYA inhibitor was at home will recommend starting him on upon discharge or when he follow-up with the PCP. Adrenal insufficiency: Continue home medication prednisone and fludrocortisone. Peripheral vascular disease: - Will continue aspirin 81 mg, Plavix 75 mg, atorvastatin 40 mg. Depression: - Continue citalopram 20 mg DVT prophylaxis: - Continue heparin subcutaneous GI prophylaxis: - Protonix 40 mg VS,Fishbone, I+O VS, Fishbone, I+O Laboratory Tests 02/11/20 07:01 Vital Signs Date Time Temp Pulse Resp B/P (MAP) Pulse Ox O2 Delivery O2 Flow Rate FiO2 02/11/20 07:14 18 02/11/20 06:57 98.2 62 144/72 (96) 94 Room Air I&O- Last 24 Hours up to 6 AM 02/11/20 06:00 Intake Total 1760 ml Output Total 2210 ml Balance -450 ml Deirdre Harris MD Feb 11, 2020 11:07
[2020-02-11 14:00] VITALS: BP 151/62
--- NOTE | 2020-02-11 14:24 | IPN ---
DATE: 02/11/2020 SUBJECTIVE: Patient is seen and examined at the bedside. He denies overnight complaints. He states his pain is controlled. He has been afebrile. LABS: White blood cell count is 12.9, hemoglobin 10.4. ESR is 124. CRP 9.54. OR cultures are pending. PHYSICAL EXAMINATION: Lower extremity examination: All the necrotic tissue has been removed from the wound. There does not appear today that there is any further gangrenous or dysvascular changes. ASSESSMENT: A 59-year-old diabetic male with gangrene status post first ray amputation. PLAN: Will monitor wound. If no further gangrenous changes, he will continue treatment at the Wound Care Center. If wound progresses with further dysvascular gangrenous changes, he will require leg amputation. Await OR culture results for antibiotic deescalation. Will follow. ERLIN
[2020-02-11] MEDS: LEVEMIR (INSULIN DETEMIR) 1 UNITS/0.01ML SC SCH (21:25)
[2020-02-11 22:00] VITALS: BP 128/48
[2020-02-12] MEDS: HumaLOG INSULIN (NovoLOG) PER UNIT SC SCH ×4 (00:32→18:18)
[2020-02-12] MEDS: PIPERACILLIN/TAZOBACTAM SOD 4.5 GM in D5W MINI-BAG PLUS 50 ML IV SCH ×3 (04:29→18:17)
[2020-02-12] MEDS: VANCOMYCIN HCL 1,000 MG, VIAL MATE ADAPTER 1 EACH in D5W 250 ML IV SCH (04:29)
[2020-02-12 06:00] VITALS: BP 165/86
[2020-02-12 06:16] LABS: BASO % 0.5 % (0.0-1.0); EOS # 0.2 10^3/uL (0.0-0.5); EOS % 2.5 % (0.0-3.0); HEMATOCRIT 28.1 % (42.0-52.0); HEMOGLOBIN 9.5 g/dl (13.5-17.5); LYMPH # 1.4 10^3/uL (1.5-5.0); LYMPH % 16.6 % (24.0-44.0); MEAN CORPUSCULAR HEMOGLOBIN 30.7 pg (27.0-33.0); MEAN CORPUSCULAR HGB CONC 33.8 g/dl (32.0-36.5); MEAN CORPUSCULAR VOLUME 90.9 fl (80.0-96.0); MONO # 0.6 10^3/uL (0.0-0.8); MONO % 7.2 % (0.0-5.0); NEUTROPHILS # 5.9 10^3/uL (1.5-8.5); NEUTROPHILS % 72.8 % (36.0-66.0); PLATELET COUNT, AUTOMATED 375 10^3/uL (150-450); RED BLOOD COUNT 3.09 10^6/uL (4.30-6.10); WHITE BLOOD COUNT 8.2 10^3/uL (4.0-10.0)
[2020-02-12 06:45] LABS: BLOOD UREA NITROGEN 15 MG/DL (7-18); CALCIUM LEVEL 8.2 MG/DL (8.8-10.2); CARBON DIOXIDE LEVEL 33 MEQ/L (21-32); CHLORIDE LEVEL 98 MEQ/L (98-107); GLOMERULAR FILTRATION RATE > 60.0 (>49); GLUCOSE, FASTING 270 MG/DL (70-100); MAGNESIUM LEVEL 1.9 MG/DL (1.8-2.4); POTASSIUM SERUM 3.8 MEQ/L (3.5-5.1); SODIUM LEVEL 137 MEQ/L (136-145)
[2020-02-12] MEDS: NORCO, ANEXSIA 5/325MG TABLET (HYDROcodone/ACETAMINOPHEN) PO PRN ×2 (07:25→20:02)
[2020-02-12 07:40] LABS: C REACTIVE PROTEIN QUANTITATIV 8.49 MG/DL (0.00-0.30)
[2020-02-12] MEDS: GABAPENTIN 300 MG CAP PO SCH ×2 (09:37→20:01)
[2020-02-12] MEDS: CitaloPRAM (CeleXA) 20 MG TAB PO SCH (09:37)
[2020-02-12] MEDS: FERROUS SULFATE 325MG TAB PO SCH (09:37)
[2020-02-12] MEDS: predniSONE 5 MG TAB PO SCH (09:37)
[2020-02-12] MEDS: CLOPIDOGREL 75 MG TAB PO SCH (09:37)
[2020-02-12] MEDS: BRIMONIDINE 0.1% OPHTH SOLN 5 ML OS SCH ×2 (09:37→20:03)
[2020-02-12] MEDS: HEPARIN SOD (PORCINE) 5000UNITS/ML 1ML VIAL/SYRINGE SC SCH ×2 (09:37→20:01)
[2020-02-12] MEDS: FLUDROCORTISONE ACETATE 0.1 MG TAB PO SCH (09:37)
[2020-02-12] MEDS: FINASTERIDE 5 MG TAB PO SCH (09:38)
[2020-02-12] MEDS: ASPIRIN 81 MG ENTERIC TAB PO SCH (09:38)
[2020-02-12] MEDS: PANTOPRAZOLE 40MG TAB (PROTONIX) PO SCH ×2 (09:38→20:02)
[2020-02-12] MEDS: ATORVASTATIN 20 MG TAB PO SCH (09:38)
[2020-02-12 09:47] LABS: ERYTHROCYTE SEDIMENTATION RATE 71 mm/hr (0-20)
--- NOTE | 2020-02-12 10:59 | IPNPDOC ---
Text Note Date of Service The patient was seen on 02/12/20. NOTE Mr. Girard is a 59-year-old male patient with history of type 1 diabetes on insulin pump, peripheral vascular disease, depression and renal insufficiency who is status post amputation of right great toe 11 days ago presented to the emergency department from Dr. Ledesma's office worsening of the wound with exposed bone. Subjective: Patient seen at bedside today, patient denies having any acute issues overnight, he reports having a good night sleep. He was in mild pain 5/10 this morning when I was seeing him. He reports just getting his pain medications and waiting for it to kick in. He denies having any fever, chills, headaches, chest pain, abdominal pain, dysuria, constipation, diarrhea. Objective: General: Patient is drowsing, Able to wake up when talking, oriented, sitting in chair , no apparent distress. Cardiovascular: Rate and rhythm normal, heard a grade 2 systolic murmur more prominent on the second right intercostal space. Respiratory: Chest is clear to auscultation bilaterally, No rhonchi, wheezes or rubs. Abdomen: Soft, bowel sounds positive, no bruits. No tenderness on palpation. Extremities: He had his first metatarsal amputation, his leg is wrapped up in dressing. Spine: No kyphosis, no paraspinal tenderness, no costovertebral tenderness. Assessment: Patient is a 59-year-old male who presented to the emergency department from Dr. Ledesma's office with worsening with exposed bone, he is status post right great toe amputation 11 days ago. Diabetic foot. Cannot rule out osteomyelitis: Patient had a amputation of his right first metatarsal by Dr. Hansen big data lead , We'll follow his recommendations. - Will continue IV vancomycin and Zosyn # day3. Will guide his antibiotics based on the cultures. -Leukocytosis white count of 8.2 came down from 12.9, ESR 71 came down from 124, CRP of 8.49 came down from 9.54. -Will monitor his wound patient has no further gangrenous changes will continue wound care. If wound progresses to devascularize and have gangrenous changes, he might require leg amputation. Diabetes mellitus type 1: - Continue insulin pump. We will check fingerstick every 6 hours. Continue atorvastatin 40 mg. - Patient has an HbA1c of 7.1 - Patient is not on TAYA inhibitor was at home will recommend starting him on upon discharge or when he follow-up with the PCP. Adrenal insufficiency: Continue home medication prednisone and fludrocortisone. Peripheral vascular disease: - Will continue aspirin 81 mg, Plavix 75 mg, atorvastatin 40 mg. Depression: - Continue citalopram 20 mg DVT prophylaxis: - Continue heparin subcutaneous GI prophylaxis: - Protonix 40 mg Disposition: Will monitor his wound patient has no further gangrenous changes will continue wound care. If wound progresses to devascularize and have gangrenous changes, he might require leg amputation. Attending Note: Patient seen and examined independently. Agree with resident's note. VS,Fishbone, I+O VS, Fishbone, I+O Laboratory Tests 02/12/20 05:59 Vital Signs Date Time Temp Pulse Resp B/P (MAP) Pulse Ox O2 Delivery O2 Flow Rate FiO2 02/12/20 07:55 18 Room Air 02/12/20 06:00 98.0 65 165/86 (112) 97 I&O- Last 24 Hours up to 6 AM 02/12/20 06:00 Intake Total 780 ml Output Total 1625 ml Balance -845 ml Deirdre Harris MD Feb 12, 2020 10:59 ESVIN MISHRA MD Feb 15, 2020 06:52
[2020-02-12] MEDS: MOM 30ML SUSPENSION UDC PO PRN (13:54)
[2020-02-12 14:00] VITALS: BP 132/65
[2020-02-12] MEDS ORDERED: VANCOMYCIN HCL 750 MG, VIAL MATE ADAPTER 1 EACH in D5W 250 ML IV SCH (16:30)
[2020-02-12] MEDS: VANCOMYCIN HCL 750 MG, VIAL MATE ADAPTER 1 EACH in D5W 250 ML IV SCH (17:00)
[2020-02-12 19:44] VITALS: BP 129/65
[2020-02-12] MEDS: LEVEMIR (INSULIN DETEMIR) 1 UNITS/0.01ML SC SCH (20:01)
[2020-02-13] MEDS: HumaLOG INSULIN (NovoLOG) PER UNIT SC SCH ×5 (00:20→22:04)
[2020-02-13] MEDS: NORCO, ANEXSIA 5/325MG TABLET (HYDROcodone/ACETAMINOPHEN) PO PRN ×3 (01:35→22:11)
[2020-02-13] MEDS: PIPERACILLIN/TAZOBACTAM SOD 4.5 GM in D5W MINI-BAG PLUS 50 ML IV SCH ×2 (04:00→10:58)
[2020-02-13] MEDS: VANCOMYCIN HCL 750 MG, VIAL MATE ADAPTER 1 EACH in D5W 250 ML IV SCH (05:48)
[2020-02-13 06:00] VITALS: BP 149/84
[2020-02-13 06:47] LABS: BASO # 0.1 10^3/uL (0.0-0.2); BASO % 0.8 % (0.0-1.0); EOS # 0.2 10^3/uL (0.0-0.5); EOS % 2.6 % (0.0-3.0); LYMPH # 1.8 10^3/uL (1.5-5.0); LYMPH % 21.4 % (24.0-44.0); MEAN CORPUSCULAR HEMOGLOBIN 30.3 pg (27.0-33.0); MEAN CORPUSCULAR HGB CONC 33.3 g/dl (32.0-36.5); MEAN CORPUSCULAR VOLUME 90.9 fl (80.0-96.0); MONO # 0.7 10^3/uL (0.0-0.8); MONO % 8.3 % (0.0-5.0); NEUTROPHILS # 5.6 10^3/uL (1.5-8.5); NEUTROPHILS % 66.2 % (36.0-66.0); PLATELET COUNT, AUTOMATED 399 10^3/uL (150-450); WHITE BLOOD COUNT 8.4 10^3/uL (4.0-10.0)
[2020-02-13 07:06] LABS: BLOOD UREA NITROGEN 11 MG/DL (7-18); CALCIUM LEVEL 8.5 MG/DL (8.8-10.2); CARBON DIOXIDE LEVEL 33 MEQ/L (21-32); CHLORIDE LEVEL 102 MEQ/L (98-107); CREATININE FOR GFR 1.15 MG/DL (0.70-1.30); GLOMERULAR FILTRATION RATE > 60.0 (>49); GLUCOSE, FASTING 125 MG/DL (70-100); MAGNESIUM LEVEL 2.1 MG/DL (1.8-2.4); POTASSIUM SERUM 3.4 MEQ/L (3.5-5.1); SODIUM LEVEL 139 MEQ/L (136-145)
[2020-02-13] MEDS: HEPARIN SOD (PORCINE) 5000UNITS/ML 1ML VIAL/SYRINGE SC SCH ×2 (09:33→22:05)
[2020-02-13] MEDS: FERROUS SULFATE 325MG TAB PO SCH (09:34)
[2020-02-13] MEDS: MORPHINE 2 MG/ML 1ML VIAL (J2270) IV PRN ×2 (09:34→14:01)
[2020-02-13] MEDS: ATORVASTATIN 20 MG TAB PO SCH (09:34)
[2020-02-13] MEDS: CitaloPRAM (CeleXA) 20 MG TAB PO SCH (09:34)
[2020-02-13] MEDS: ASPIRIN 81 MG ENTERIC TAB PO SCH (09:34)
[2020-02-13] MEDS: PANTOPRAZOLE 40MG TAB (PROTONIX) PO SCH ×2 (09:35→22:04)
[2020-02-13] MEDS: FLUDROCORTISONE ACETATE 0.1 MG TAB PO SCH (09:35)
[2020-02-13] MEDS: FINASTERIDE 5 MG TAB PO SCH (09:35)
[2020-02-13] MEDS: BRIMONIDINE 0.1% OPHTH SOLN 5 ML OS SCH ×2 (09:35→22:05)
[2020-02-13] MEDS: GABAPENTIN 300 MG CAP PO SCH ×2 (09:35→22:04)
[2020-02-13] MEDS: predniSONE 5 MG TAB PO SCH (09:35)
[2020-02-13] MEDS: CLOPIDOGREL 75 MG TAB PO SCH (09:35)
[2020-02-13] MEDS: MOM 30ML SUSPENSION UDC PO PRN (10:56)
[2020-02-13] MEDS ORDERED: LEVO500T3 PO (11:04)
[2020-02-13] MEDS ORDERED: HYDR-3713 PO ×2 (11:13→12:09)
[2020-02-13 14:00] VITALS: BP 150/83
--- NOTE | 2020-02-13 14:53 | IPN ---
DATE: 02/13/2020 SUBJECTIVE: Patient seen and examined. Denies new complaints. States pain is controlled. Vitals are reviewed, he has been afebrile. Labs are reviewed. White blood cell count is 8.4, hemoglobin is 10. OBJECTIVE: On lower extremity examination there has been some further gangrenous changes to his right foot. No signs of purulence. ASSESSMENT: A 59-year-old male status post first ray amputation. PLAN: Patient okay to be discharged on oral Levaquin. It appears that the patient is going to require a leg amputation. He should have follow-up with vascular surgery this week with most likely amputation, if they deem necessary once Dr. Boss has returned. [facility]
--- NOTE | 2020-02-13 17:59 | IPNPDOC ---
Text Note Date of Service The patient was seen on 02/13/20. NOTE Mr. Girard is a 59-year-old male patient with history of type 1 diabetes on insulin pump, peripheral vascular disease, depression and renal insufficiency who is status post amputation of right great toe 11 days ago presented to the emergency department from Dr. Ledesma's office worsening of the wound with exposed bone. Subjective: Patient seen at bedside today morning, patient denies having any acute issues overnight. He reports having intermittent shooting pain dating from his ankle to his foot. He denies having fevers, chills, headaches, chest pain or palpitation, abdominal pain, dysuria. Objective: General: Patient is awake, alert and oriented, sitting in bed, no apparent distress. Cardiovascular: Rate and rhythm normal, heard a grade 2 systolic murmur more prominent on the second right intercostal space. Respiratory: Chest is clear to auscultation bilaterally, No rhonchi, wheezes or rubs. Abdomen: Soft, bowel sounds positive, no bruits. No tenderness on palpation. Extremities: He had his amputation of right first metatarsal done couple of days ago, and his leg is wrapped in bandage Spine: No kyphosis, no paraspinal tenderness, no costovertebral tenderness. Assessment: Patient is a 59-year-old male who presented to the emergency department from Dr. Ledesma's office with worsening with exposed bone, he is status post right great toe amputation 11 days ago. Gangrenous Diabetic foot s/p amputation: Patient had a amputation of his right first metatarsal by Dr. Hansen pumper helper , We'll follow his recommendations. - Patient's wound cultures, anaerobic cultures came back and they were positive for Enterobacter Colace. - Will start patient on levofloxacin by mouth 500 MG twice a day for 4 weeks tomorrow. - Patient was initially planned to discharge today, but due to his pain management he will be discharged tomorrow - He got a dose of vancomycin today. -Leukocytosis white count of 8.4 , ESR 71, CRP of 8.49 . - His blood cultures on 02/09/2020 showed no growth after 72 hours and preliminary reports Diabetes mellitus type 1: - Continue insulin pump. We will check fingerstick every 6 hours. Continue atorvastatin 40 mg. - Patient has an HbA1c of 7.1 - Patient is not on TAYA inhibitor was at home will recommend starting him on upon discharge or when he follow-up with the PCP. Adrenal insufficiency: Continue home medication prednisone and fludrocortisone. Peripheral vascular disease: - Will continue aspirin 81 mg, Plavix 75 mg, atorvastatin 40 mg. Depression: - Continue citalopram 20 mg DVT prophylaxis: - Continue heparin subcutaneous GI prophylaxis: - Protonix 40 mg Disposition: Patient is likely to be discharged tomorrow. He was supposed to be discharged today but due to his painmanagement is being kept overnight. Will discharge him on by mouth levofloxacin 500 mg twice a day for 4 weeks, hydrocodone 2 tablets for 4 days and to follow-up with PCP in 3-5 days Attending Note: Patient seen and examined independently. Agree with resident's note. VS,Linda, I+O VS, Linda, I+O Laboratory Tests 02/13/20 06:30 Vital Signs Date Time Temp Pulse Resp B/P (MAP) Pulse Ox O2 Delivery O2 Flow Rate FiO2 02/13/20 16:45 16 02/13/20 14:00 98.5 64 150/83 (105) 99 Room Air I&O- Last 24 Hours up to 6 AM 02/13/20 06:00 Intake Total 2320 ml Output Total 1925 ml Balance 395 ml Deirdre Harris MD Feb 13, 2020 17:59 ESVIN MISHRA MD Feb 15, 2020 07:07
[2020-02-13 22:00] VITALS: BP 140/62
[2020-02-13] MEDS: LEVEMIR (INSULIN DETEMIR) 1 UNITS/0.01ML SC SCH (22:03)
[2020-02-14 06:00] VITALS: BP 147/76
[2020-02-14] MEDS ORDERED: LevoFLOXacin 500 MG TABLET PO SCH (06:00)
[2020-02-14] MEDS: NORCO, ANEXSIA 5/325MG TABLET (HYDROcodone/ACETAMINOPHEN) PO PRN ×2 (06:38→20:02)
[2020-02-14] MEDS: LevoFLOXacin 500 MG TABLET PO SCH (07:27)
[2020-02-14 07:50] LABS: BASO # 0.1 10^3/uL (0.0-0.2); BASO % 0.7 % (0.0-1.0); EOS # 0.2 10^3/uL (0.0-0.5); EOS % 2.2 % (0.0-3.0); HEMOGLOBIN 9.4 g/dl (13.5-17.5); LYMPH # 1.4 10^3/uL (1.5-5.0); LYMPH % 16.4 % (24.0-44.0); MEAN CORPUSCULAR HEMOGLOBIN 29.8 pg (27.0-33.0); MEAN CORPUSCULAR HGB CONC 32.4 g/dl (32.0-36.5); MEAN CORPUSCULAR VOLUME 92.1 fl (80.0-96.0); MONO # 0.7 10^3/uL (0.0-0.8); NEUTROPHILS % 72.2 % (36.0-66.0); PLATELET COUNT, AUTOMATED 393 10^3/uL (150-450); RED BLOOD COUNT 3.15 10^6/uL (4.30-6.10); WHITE BLOOD COUNT 8.3 10^3/uL (4.0-10.0)
[2020-02-14 08:03] LABS: BLOOD UREA NITROGEN 12 MG/DL (7-18); CALCIUM LEVEL 8.1 MG/DL (8.8-10.2); CARBON DIOXIDE LEVEL 34 MEQ/L (21-32); CHLORIDE LEVEL 100 MEQ/L (98-107); CREATININE FOR GFR 1.07 MG/DL (0.70-1.30); GLOMERULAR FILTRATION RATE > 60.0 (>49); GLUCOSE, FASTING 272 MG/DL (70-100); MAGNESIUM LEVEL 2.2 MG/DL (1.8-2.4); POTASSIUM SERUM 4.5 MEQ/L (3.5-5.1); SODIUM LEVEL 138 MEQ/L (136-145)
[2020-02-14] MEDS: ASPIRIN 81 MG ENTERIC TAB PO SCH (08:29)
[2020-02-14] MEDS: HEPARIN SOD (PORCINE) 5000UNITS/ML 1ML VIAL/SYRINGE SC SCH ×2 (08:29→20:04)
[2020-02-14] MEDS: GABAPENTIN 300 MG CAP PO SCH ×2 (08:29→20:04)
[2020-02-14] MEDS: ATORVASTATIN 20 MG TAB PO SCH (08:29)
[2020-02-14] MEDS: CLOPIDOGREL 75 MG TAB PO SCH (08:30)
[2020-02-14] MEDS: FINASTERIDE 5 MG TAB PO SCH (08:30)
[2020-02-14] MEDS: FERROUS SULFATE 325MG TAB PO SCH (08:30)
[2020-02-14] MEDS: predniSONE 5 MG TAB PO SCH (08:30)
[2020-02-14] MEDS: FLUDROCORTISONE ACETATE 0.1 MG TAB PO SCH (08:30)
[2020-02-14] MEDS: PANTOPRAZOLE 40MG TAB (PROTONIX) PO SCH ×2 (08:30→20:04)
[2020-02-14] MEDS: CitaloPRAM (CeleXA) 20 MG TAB PO SCH (08:30)
[2020-02-14] MEDS: HumaLOG INSULIN (NovoLOG) PER UNIT SC SCH ×4 (08:31→20:56)
[2020-02-14] MEDS: BRIMONIDINE 0.1% OPHTH SOLN 5 ML OS SCH ×2 (08:33→20:05)
[2020-02-14 10:00] VITALS: BP 84/66
--- NOTE | 2020-02-14 12:19 | DS.PDOC ---
Discharge Summary General Date of Admission Feb 09, 2020 at 22:10 Date of Discharge 02/14/2020 Primary Care Physician: SONIA JUNG MD Attending Physician: ESVIN MISHRA MD Specialist/Consultants Involve: Boubacar Hansen Discharge Summary PROCEDURES PERFORMED DURING STAY: Amputation of the first metatarsal of right leg. ADMITTING DIAGNOSES: 1. Gangrenous on over the right great toe with exposed bone. 2. Type 1 diabetes, on insulin pump 3. Adrenal insufficiency 4. Peripheral vascular disease 5. Depression DISCHARGE DIAGNOSES: 1. Status post amputation of right first metatarsal. 2. Type 1 diabetes, on insulin pump 3. Adrenal insufficiency 4. Peripheral vascular disease 5. Depression COMPLICATIONS/CHIEF COMPLAINT: Insulin Dependent Diabetes Mellitus, Osteomyelitis. HISTORY OF PRESENT ILLNESS: This is a 59-year-old male who presented to the emergency department from Dr. Ledesma's office for wound in his right foot. Patient had a right great toe amputation performed on 01/29/[address] Hansen anesthesiologist attending. Patient went to Dr. Ledesma for wound care and it was uncovered the patient had exposed bone in the wound appeared infected, and was sent to the emergency department. And denied having any fever or chills. HOSPITAL COURSE: He was admitted to the hospital on 02/09/2020 and was started on broad-spectrum IV antibiotics, and Dr. Hansen anesthesiologist attending was consulted and the following day 02/10/2020 he was taken to surgery for amputation of right first metatarsal. And wound cultures were sent. During the hospital stay his pain was managed and was given IV antibiotics vancomycin and Zosyn for 4 days. After the cultures were back he was switched to by mouth levofloxacin antibiotics. Wound cultures were positive for Enterobacter Colace. DISCHARGE MEDICATIONS: Please see below. ALLERGIES: Please see below. PHYSICAL EXAMINATION ON DISCHARGE: VITAL SIGNS: Please see below. General: Patient is awake, alert and oriented, sitting in bed, no apparent distress. Reports having mild intermittent pain. Cardiovascular: Rate and rhythm normal, heard a grade 2 systolic murmur more prominent on the second right intercostal space. Respiratory: Chest is clear to auscultation bilaterally, No rhonchi, wheezes or rubs. Abdomen: Soft, bowel sounds positive, no bruits. No tenderness on palpation. Extremities: He had his amputation of right first metatarsal , and his leg is wrapped in bandage Spine: No kyphosis, no paraspinal tenderness, no costovertebral tenderness. LABORATORY DATA: Please see below. IMAGING: Chest x-ray: 02/09/2020, reported as no acute cardiopulmonary disease. PROGNOSIS: He might need further amputation of the right foot. ACTIVITY: As tolerated. DIET: Diabetic diet DISCHARGE PLAN: Discharge home and follow with PCP in 3-5 days DISPOSITION: Home DISCHARGE INSTRUCTIONS: 1. Follow with your PCP in 3-5 days. 2. Follow-up with Dr. Ledesma for wound care. 3. Follow-up vascular surgeon in a week as patient may require further amputation. 4. Continue to take Levaquin oral 500 MG once daily for total of 4 weeks. he and is being sent home with a total of 24 days of pills. 5. Patient will be sent home with pain medication hydrocodone/acetaminophen for 4 days and need to follow with PCP for further pain management. ITEMS TO FOLLOWUP ON ON OUTPATIENT: 1. Follow with your PCP in 3-5 days. 2. Follow-up with Dr. Ledesma for wound care. 3. Follow-up vascular surgeon in a week as patient may require further amputation. DISCHARGE CONDITION: Stable. TIME SPENT ON DISCHARGE: Greater than 30 minutes. Attending Note: Patient seen and examined independently. Agree with resident's note. Vital Signs/I&Os Vital Signs Date Time Temp Pulse Resp B/P (MAP) Pulse Ox O2 Delivery O2 Flow Rate FiO2 02/14/20 10:00 97.3 70 18 84/66 (72) 93 02/14/20 06:00 Room Air I&O- Last 24 Hours up to 6 AM 02/14/20 06:00 Intake Total 1445 ml Output Total 1500 ml Balance -55 ml Laboratory Data Labs 24H Laboratory Tests 2 02/13/20 12:01: Bedside Glucose (Misc Panel) 213H 02/13/20 15:56: Vancomycin Level Trough 14.5 02/13/20 18:02: Bedside Glucose (Misc Panel) 304H 02/13/20 21:13: Bedside Glucose (Misc Panel) 320H 02/14/20 06:53: Bedside Glucose (Misc Panel) 265H 02/14/20 07:30: Immature Granulocyte % (Auto) 0.5, Neutrophils (%) (Auto) 72.2H, Lymphocytes (%) (Auto) 16.4L, Monocytes (%) (Auto) 8.0H, Eosinophils (%) (Auto) 2.2, Basophils (%) (Auto) 0.7, Neutrophils # (Auto) 6.0, Lymphocytes # (Auto) 1.4L, Monocytes # (Auto) 0.7, Eosinophils # (Auto) 0.2, Basophils # (Auto) 0.1, Nucleated Red Blood Cells % (auto) 0.0, Anion Gap 4L, Glomerular Filtration Rate > 60.0, Calcium Level 8.1L, Magnesium Level 2.2 02/14/20 11:44: Bedside Glucose (Misc Panel) 230H CBC/BMP Laboratory Tests 02/14/20 07:30 FSBS Laboratory Tests Test 02/13/20 12:01 02/13/20 18:02 02/13/20 21:13 02/14/20 06:53 Range/Units Bedside Glucose (Misc Panel) 213 304 320 265 80-115 MG/DL Test 02/14/20 11:44 Range/Units Bedside Glucose (Misc Panel) 230 80-115 MG/DL Microbiology Microbiology 02/10/20 Wound Culture - Final, Resulted Enterobacter Cloacae Complex 02/10/20 Anaerobic Culture, Resulted Pending 02/09/20 Blood Culture - Preliminary, Resulted No Growth after 72 hours. All specime... 02/09/20 Blood Culture - Preliminary, Resulted No Growth after 72 hours. All specime... Discharge Medications Scheduled Aspirin (Aspirin EC) 81 Mg Tab, 81 MG PO DAILY, (Reported) Atorvastatin Calcium (Atorvastatin Calcium) 40 Mg Tab, 40 MG PO DAILY, (Reported) Bimatoprost (Lumigan) 0.01% 2.5ML Drops, 1 DROP OS QHS, (Reported) Brimonidine Tartrate (Alphagan P) 0.1% 5ML Drops, 1 DROP OS BID, (Reported) Chlorhexidine Gluconate (Chlorhexidine Gluconate) 473 Ml Mouthwash, 15 ML SSP BID, (Reported) AFTER BRUSHING AND FLOSSING Citalopram Hydrobromide (Citalopram HBr) 40 Mg Tab, 40 MG PO DAILY, (Reported) Clopidogrel Bisulfate (Clopidogrel) 75 Mg Tab, 75 MG PO DAILY, (Reported) Collagenase Clostridium Hist. (Santyl) 30 Gm Oint...g., 1 DOSE TOP DAILY, (Reported) APPLY TO ULCER WITH NICKEL THICKNESS Ferrous Sulfate (Ferrous Sulfate) 325 Mg Tab, 325 MG PO QWEEK, (Reported) Finasteride (Finasteride) 5 Mg Tablet, 5 MG PO DAILY, (Reported) Fludrocortisone Acetate (Fludrocortisone Acetate) 0.1 Mg Tablet, 0.1 MG PO DAILY, (Reported) Gabapentin (Gabapentin) 300 Mg Cap, 300 MG PO BID, (Reported) Insulin Human Lispro (Novolog) 100 Unit/1 Ml Vial, 1 DOSE SC ASDIRECTED, (Reported) UP TO 100 UNITS DAILY CONTINUOUS THROUGH INSULIN PUMP Ketoconazole (Ketoconazole) 15 Gm Cream..g., 1 DOSE EXT BID, (Reported) APPLY SPARINGLY TO FACE AND SCALP Levofloxacin (Levofloxacin) 500 Mg Tablet, 500 MG PO QHS Pantoprazole Sodium (Pantoprazole Sodium) 40 Mg Tablet.dr, 40 MG PO BID, (Rep orted) Prednisone (Prednisone) 5 Mg Tablet, 5 MG PO DAILY, (Reported) Scheduled PRN Glucagon,Human Recombinant (Glucagon Emergency Kit) 1 Mg Vial, 1 MG IM ASDIRECTED PRN for LOW BLOOD SUGAR, (Reported) Hydrocodone/Acetaminophen (Hydrocodone-Acetamin 5-325 mg) 1 Each Tablet, 1 TAB PO Q6H PRN for PAIN, (Reported) MDD 4 Hydrocodone/Acetaminophen (Hydrocodone-Acetamin 5-325 mg) 1 Each Tablet, 1 TAB PO BIDP PRN for pain Tramadol HCl (Tramadol HCl) 50 Mg Tablet, 50 MG PO Q8H PRN for PAIN, (Reported) Miscellaneous Medications [Patient Comment] , (Reported) UNABLE TO COMMUNICATE WITH PATIENT; COMPLETED MED REC VIA CLINIC VISITS AND EXTERNAL MED HISTORY Allergies Coded Allergies: No Known Allergies (Unverified , 09/11/19) Deirdre Harris MD Feb 14, 2020 12:19 ESVIN MISHRA MD Feb 15, 2020 07:10
[2020-02-14 14:00] VITALS: BP 126/59
[2020-02-14 17:11] VITALS: BP 146/66
[2020-02-14] MEDS: LEVEMIR (INSULIN DETEMIR) 1 UNITS/0.01ML SC SCH (20:04)
[2020-02-14 22:00] VITALS: BP 124/50
[2020-02-15] MEDS: LevoFLOXacin 500 MG TABLET PO SCH (05:27)
[2020-02-15] MEDS: NORCO, ANEXSIA 5/325MG TABLET (HYDROcodone/ACETAMINOPHEN) PO PRN ×3 (05:27→20:17)
[2020-02-15 06:00] VITALS: BP 162/82
[2020-02-15] MEDS ORDERED: LevoFLOXacin 500 MG TABLET PO SCH (06:00)
[2020-02-15] MEDS: HEPARIN SOD (PORCINE) 5000UNITS/ML 1ML VIAL/SYRINGE SC SCH ×2 (07:46→20:18)
[2020-02-15] MEDS: CLOPIDOGREL 75 MG TAB PO SCH (07:47)
[2020-02-15] MEDS: predniSONE 5 MG TAB PO SCH (07:47)
[2020-02-15] MEDS: CitaloPRAM (CeleXA) 20 MG TAB PO SCH (07:47)
[2020-02-15] MEDS: HumaLOG INSULIN (NovoLOG) PER UNIT SC SCH ×4 (07:47→21:24)
[2020-02-15] MEDS: FLUDROCORTISONE ACETATE 0.1 MG TAB PO SCH (07:47)
[2020-02-15] MEDS: ASPIRIN 81 MG ENTERIC TAB PO SCH (07:48)
[2020-02-15] MEDS: GABAPENTIN 300 MG CAP PO SCH ×2 (07:48→20:17)
[2020-02-15] MEDS: BRIMONIDINE 0.1% OPHTH SOLN 5 ML OS SCH ×2 (07:48→20:17)
[2020-02-15] MEDS: PANTOPRAZOLE 40MG TAB (PROTONIX) PO SCH ×2 (07:48→20:17)
[2020-02-15] MEDS: FERROUS SULFATE 325MG TAB PO SCH (07:48)
[2020-02-15] MEDS: FINASTERIDE 5 MG TAB PO SCH (07:48)
[2020-02-15] MEDS: ATORVASTATIN 20 MG TAB PO SCH (07:48)
[2020-02-15 08:02] LABS: BASO # 0.1 10^3/uL (0.0-0.2); BASO % 0.6 % (0.0-1.0); EOS # 0.1 10^3/uL (0.0-0.5); EOS % 1.6 % (0.0-3.0); HEMATOCRIT 28.5 % (42.0-52.0); HEMOGLOBIN 9.4 g/dl (13.5-17.5); MEAN CORPUSCULAR HEMOGLOBIN 30.3 pg (27.0-33.0); MEAN CORPUSCULAR VOLUME 91.9 fl (80.0-96.0); MONO # 0.8 10^3/uL (0.0-0.8); MONO % 8.8 % (0.0-5.0); NEUTROPHILS # 5.7 10^3/uL (1.5-8.5); NEUTROPHILS % 65.3 % (36.0-66.0); PLATELET COUNT, AUTOMATED 390 10^3/uL (150-450); WHITE BLOOD COUNT 8.7 10^3/uL (4.0-10.0)
[2020-02-15 09:44] LABS: BLOOD UREA NITROGEN 14 MG/DL (7-18); CALCIUM LEVEL 8.7 MG/DL (8.8-10.2); CARBON DIOXIDE LEVEL 32 MEQ/L (21-32); CHLORIDE LEVEL 102 MEQ/L (98-107); CREATININE FOR GFR 0.97 MG/DL (0.70-1.30); GLOMERULAR FILTRATION RATE > 60.0 (>49); GLUCOSE, FASTING 196 MG/DL (70-100); MAGNESIUM LEVEL 1.9 MG/DL (1.8-2.4); POTASSIUM SERUM 4.1 MEQ/L (3.5-5.1); SODIUM LEVEL 139 MEQ/L (136-145)
[2020-02-15 14:00] VITALS: BP 126/48
[2020-02-15] MEDS: LEVEMIR (INSULIN DETEMIR) 1 UNITS/0.01ML SC SCH (20:18)
[2020-02-15 22:00] VITALS: BP 168/84
[2020-02-16] MEDS: NORCO, ANEXSIA 5/325MG TABLET (HYDROcodone/ACETAMINOPHEN) PO PRN ×3 (00:25→20:25)
[2020-02-16] MEDS: LevoFLOXacin 500 MG TABLET PO SCH (05:05)
[2020-02-16 06:00] VITALS: BP 159/65
[2020-02-16 07:06] LABS: BASO % 0.5 % (0.0-1.0); EOS # 0.1 10^3/uL (0.0-0.5); EOS % 1.4 % (0.0-3.0); HEMOGLOBIN 9.6 g/dl (13.5-17.5); LYMPH # 1.9 10^3/uL (1.5-5.0); LYMPH % 23.7 % (24.0-44.0); MEAN CORPUSCULAR HEMOGLOBIN 30.2 pg (27.0-33.0); MEAN CORPUSCULAR HGB CONC 33.1 g/dl (32.0-36.5); MEAN CORPUSCULAR VOLUME 91.2 fl (80.0-96.0); MONO # 0.7 10^3/uL (0.0-0.8); MONO % 9.3 % (0.0-5.0); NEUTROPHILS # 5.1 10^3/uL (1.5-8.5); NEUTROPHILS % 64.2 % (36.0-66.0); PLATELET COUNT, AUTOMATED 378 10^3/uL (150-450); RED BLOOD COUNT 3.18 10^6/uL (4.30-6.10)
[2020-02-16 07:19] LABS: BLOOD UREA NITROGEN 17 MG/DL (7-18); CALCIUM LEVEL 8.8 MG/DL (8.8-10.2); CARBON DIOXIDE LEVEL 33 MEQ/L (21-32); CHLORIDE LEVEL 101 MEQ/L (98-107); CREATININE FOR GFR 1.05 MG/DL (0.70-1.30); GLOMERULAR FILTRATION RATE > 60.0 (>49); GLUCOSE, FASTING 216 MG/DL (70-100); MAGNESIUM LEVEL 1.9 MG/DL (1.8-2.4); SODIUM LEVEL 138 MEQ/L (136-145)
[2020-02-16] MEDS: HumaLOG INSULIN (NovoLOG) PER UNIT SC SCH ×4 (08:28→20:24)
[2020-02-16] MEDS: HEPARIN SOD (PORCINE) 5000UNITS/ML 1ML VIAL/SYRINGE SC SCH ×2 (08:28→20:24)
[2020-02-16] MEDS: GABAPENTIN 300 MG CAP PO SCH ×2 (08:28→20:23)
[2020-02-16] MEDS: ASPIRIN 81 MG ENTERIC TAB PO SCH (08:29)
[2020-02-16] MEDS: CitaloPRAM (CeleXA) 20 MG TAB PO SCH (08:29)
[2020-02-16] MEDS: BRIMONIDINE 0.1% OPHTH SOLN 5 ML OS SCH ×2 (08:29→20:24)
[2020-02-16] MEDS: CLOPIDOGREL 75 MG TAB PO SCH (08:29)
[2020-02-16] MEDS: FERROUS SULFATE 325MG TAB PO SCH (08:29)
[2020-02-16] MEDS: ATORVASTATIN 20 MG TAB PO SCH (08:29)
[2020-02-16] MEDS: predniSONE 5 MG TAB PO SCH (08:29)
[2020-02-16] MEDS: FLUDROCORTISONE ACETATE 0.1 MG TAB PO SCH (08:29)
[2020-02-16] MEDS: PANTOPRAZOLE 40MG TAB (PROTONIX) PO SCH ×2 (08:29→20:23)
[2020-02-16] MEDS: FINASTERIDE 5 MG TAB PO SCH (08:29)
[2020-02-16 14:00] VITALS: BP 128/49
[2020-02-16] MEDS: LEVEMIR (INSULIN DETEMIR) 1 UNITS/0.01ML SC SCH (20:23)
[2020-02-16 22:00] VITALS: BP 112/49
[2020-02-17] MEDS: LevoFLOXacin 500 MG TABLET PO SCH (05:13)
[2020-02-17] MEDS: NORCO, ANEXSIA 5/325MG TABLET (HYDROcodone/ACETAMINOPHEN) PO PRN (05:13)
[2020-02-17 06:00] VITALS: BP 172/76
[2020-02-17] MEDS: HumaLOG INSULIN (NovoLOG) PER UNIT SC SCH (07:58)
[2020-02-17] MEDS: ASPIRIN 81 MG ENTERIC TAB PO SCH (09:36)
[2020-02-17] MEDS: FERROUS SULFATE 325MG TAB PO SCH (09:36)
[2020-02-17] MEDS: predniSONE 5 MG TAB PO SCH (09:36)
[2020-02-17] MEDS: CLOPIDOGREL 75 MG TAB PO SCH (09:36)
[2020-02-17] MEDS: GABAPENTIN 300 MG CAP PO SCH (09:36)
[2020-02-17] MEDS: CitaloPRAM (CeleXA) 20 MG TAB PO SCH (09:36)
[2020-02-17] MEDS: ATORVASTATIN 20 MG TAB PO SCH (09:36)
[2020-02-17] MEDS: FLUDROCORTISONE ACETATE 0.1 MG TAB PO SCH (09:36)
[2020-02-17] MEDS: BRIMONIDINE 0.1% OPHTH SOLN 5 ML OS SCH (09:37)
[2020-02-17] MEDS: PANTOPRAZOLE 40MG TAB (PROTONIX) PO SCH (09:37)
[2020-02-17] MEDS: HEPARIN SOD (PORCINE) 5000UNITS/ML 1ML VIAL/SYRINGE SC SCH (09:37)
[2020-02-17] MEDS: FINASTERIDE 5 MG TAB PO SCH (09:37)
--- NOTE | 2020-02-17 10:46 | IPNPDOC ---
Text Note Date of Service The patient was seen on 02/17/20. NOTE Discharge Addendum: Subjective: Patient seen and examined at bedside. No acute overnight events reported. Patient has no new medical complaints this morning. He denies any issues with pain control. Objective: VITAL SIGNS: Please see below. General: NAD Cardiovascular: RRR, systolic murmur Respiratory: CTA B/L Abdomen: soft, NT, ND, +BS Extremities: He had his amputation of right first metatarsal , and his leg is wrapped in bandage A/P: 59 M presented to the ED from Dr. Ledesma's office for wound in his right foot. Patient had a right great toe amputation performed on 01/29/[address] Hansen ethologist. Patient went to Dr. Ledesma for wound care which revealed patient had exposed bone in the wound and appeared infected, and was sent to the ED. He was admitted to the hospital on 02/09/2020 and was started on broad-spectrum IV antibiotics, and Dr. Hansen ethologist was consulted and the following day 02/10/2020 he was taken to surgery for amputation of right first metatarsal. During the hospital stay his pain was managed and was given IV antibiotics vancomycin and Zosyn for 4 days. After the cultures were back he was switched to by mouth levofloxacin antibiotics. Wound cultures were positive for Enterobacter Colace. Patient was discharged, however his family refused discharge with concerns for home safety. He was re-evaluated by PT, and discharged with home services. Please refer to discharge summary for full details. VS,Fishbone, I+O VS, Fishbone, I+O Vital Signs Date Time Temp Pulse Resp B/P (MAP) Pulse Ox O2 Delivery O2 Flow Rate FiO2 02/17/20 06:00 98.1 57 17 172/76 (108) 95 Room Air I&O- Last 24 Hours up to 6 AM 02/17/20 06:00 Intake Total 940 ml Output Total 650 ml Balance 290 ml ESVIN MISHRA MD Feb 17, 2020 10:46
== END 2020-02-17 11:50 | disposition home health service (06) | DRG 464 ==
LOC: M ED 16:25 → EEVIPCON 22:10 → M ED INP 22:10 → ENRESERV 02-10 04:04 → M MS5PR 02-10 05:18
PROVIDERS: ADMIT Family Medicine; ATTEND Internal Medicine
PROC: 0Y6P0Z0 Detachment at Right 1st Toe, Complete, Open Approach (ICD-10-PCS; 2020-02-10)
PROC: 0QBN0ZZ Excision of Right Metatarsal, Open Approach (ICD-10-PCS; 2020-02-10)
PROC: 0JBQ0ZZ Excision of Right Foot Subcutaneous Tissue and Fascia, Open Approach (ICD-10-PCS; principal; 2020-02-10 16:00)
DX: T87.53 Necrosis of amputation stump, right lower extremity (principal); E27.40 Unspecified adrenocortical insufficiency; E87.2 Acidosis; T87.43 Infection of amputation stump, right lower extremity; E10.51 Type 1 diabetes mellitus with diabetic peripheral angiopathy without gangrene; F32.9 Major depressive disorder, single episode, unspecified; Z79.4 Long term (current) use of insulin; Z79.82 Long term (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; Z79.899 Other long term (current) drug therapy; Z89.512 Acquired absence of left leg below knee; Z87.891 Personal history of nicotine dependence; M31.6 Other giant cell arteritis; Y83.5 Amputation of limb(s) as the cause of abnormal reaction of the patient, or of later complication, without mention of misadventure at the time of the procedure

== ENCOUNTER → 2020-02-28 | Outpatient (CLI) | payer MEDICARE, MEDICAID ==
[~2020-02-28] MED LIST changes: +BIMA01SOL OS; +BRIM1OPD OS; +CEPH500C PO; +GLUC1KIT IM; +KETO2CR EXT; +LEVO500T3 PO; +MULTCAP PO; +PATIENT COMMENT; +PERI12LIQ SSP; +SANT250O8 TOP
== END ==
LOC: M LABSMTC 10:51
PROVIDERS: ATTEND Anesthesiology
DX: Z01.812 Encounter for preprocedural laboratory examination (principal); Z20.828 Contact with and (suspected) exposure to other viral communicable diseases

== ENCOUNTER 2020-03-03 07:30 | Inpatient (IN) | payer MEDICARE, MEDICAID ==
[2020-03-03] VITALS (8 sets, daily range): BP systolic 104–110; BP diastolic 41–59
[~2020-03-03] VITALS: Ht 175.3 cm; Wt 62.2 kg
[~2020-03-03 07:30] MED LIST changes: +LR 1,000 ML IV ONE; +ceFAZolin SOD 2 GM in IV 1 EA IV ONE
[2020-03-03 08:47] LABS: HEMOGLOBIN 10.7 g/dl (13.5-17.5); MEAN CORPUSCULAR HEMOGLOBIN 30.5 pg (27.0-33.0); MEAN CORPUSCULAR HGB CONC 32.4 g/dl (32.0-36.5); PLATELET COUNT, AUTOMATED 275 10^3/uL (150-450); RED BLOOD COUNT 3.51 10^6/uL (4.30-6.10); WHITE BLOOD COUNT 8.3 10^3/uL (4.0-10.0)
[2020-03-03 09:18] LABS: CALCIUM LEVEL 9.3 MG/DL (8.8-10.2); CREATININE FOR GFR 1.58 MG/DL (0.70-1.30); GLOMERULAR FILTRATION RATE 47.9 (>49); INR 0.91; PARTIAL THROMBOPLASTIN TIME 30.3 SECONDS (24.2-38.5); POTASSIUM SERUM 4.2 MEQ/L (3.5-5.1); PROTHROMBIN TIME 12.4 SECONDS (12.5-14.3)
[2020-03-03] MEDS ORDERED: HumaLOG INSULIN (NovoLOG) PER UNIT SC ONE (09:45)
[2020-03-03] MEDS ORDERED: MIDAZOLAM INJ 2MG/2ML VIAL (J2250 PER 1MG) As Ordered ONE (09:49)
[2020-03-03] MEDS ORDERED: fentaNYL 100 MCG/2 ML INJECTION (J3010) As Ordered ONE ×2 (09:50→12:38)
[2020-03-03] MEDS ORDERED: HYDROCORTISONE 100 MG/2 ML VIAL (J1720 PER 1) IV ONE (10:00)
[2020-03-03] MEDS ORDERED: LIDOCAINE 2% W/EPINEPHRINE 20ML VIAL **PRES FREE As Ordered ONE (10:26)
[2020-03-03] MEDS ORDERED: ROCURONIUM BROMIDE 50 MG/5 ML VIAL As Ordered ONE (10:42)
[2020-03-03] MEDS ORDERED: ACETAMINOPHEN 1000MG 100ML IV BTL (OFIRMEV) (J0131 PER 10MG) As Ordered ONE (11:09)
[2020-03-03] MEDS ORDERED: SUGAMMADEX SODIUM 500 MG/5 ML VIAL (BRIDION) As Ordered ONE (11:22)
[2020-03-03] MEDS ORDERED: propofoL 200 MG/20 ML VIAL As Ordered ONE ×2 (11:22→12:42)
[2020-03-03] MEDS ORDERED: METOCLOPRAMIDE INJ 10MG/2ML VIAL (J2765 PER 1) As Ordered ONE (11:23)
[2020-03-03] MEDS ORDERED: ONDANSETRON 4MG/2ML VIAL As Ordered ONE (11:23)
[2020-03-03] MEDS ORDERED: LIDOCAINE 2% 100MG/5ML SDV (FOR ANES.) As Ordered ONE (11:24)
[2020-03-03] MEDS ORDERED: PHENYLephrine HCL 500 MCG/5 ML (100MCG/ML) SYRINGE (J2370) As Ordered ONE ×2 (11:24→12:12)
[2020-03-03] MEDS ORDERED: ePHEDrine SULFATE 25 MG/5 ML(5MG/ML) SYRINGE As Ordered ONE (12:58)
--- NOTE | 2020-03-03 13:09 | ROOPDOC ---
[facility] Report Of Operation Report of Operation DATE OF PROCEDURE: 03/03/20 PREPROCEDURE DIAGNOSES: Gangrene of right foot and ankle POSTPROCEDURE DIAGNOSES: Same PROCEDURE: Right below-knee amputation SURGEON: Tisha Boss MD ANESTHESIA: General anesthesia and local INDICATION FOR PROCEDURE: This is a very pleasant 59-year-old patient with atherosclerosis of the [place] artery status post revascularization for nonhealing wounds of the right foot that has progressed to gangrene of the dorsal foot plantar foot heel and ankle. The foot is not viable, and we discussed the options for a below-knee versus above-knee amputation. The patient is agreeable to proceed. Informed consent was obtained. Our goal will be to proceed with the below-knee amputation if possible since the patient has a contralateral below-knee amputation. REPORT OF OPERATION: Patient was brought to the OR in stable condition and he received general anesthesia and antibiotics without complication. His right lower extremity was prepped and draped in a sterile fashion. A timeout was performed. We marked the anterior transverse incision 14 cm below the tibial plateau and then along posterior flap. We exsanguinated the leg with an Esmarch and inflated the tourniquet, but upon incision of the skin it was clear that the tourniquet was not going to be helpful. The patient has a history of heavily calcified diabetic vessels, and I suspect they are not compressible with tourniquet. Therefore we released the tourniquet shortly after inflating and did the rest of the case without a tourniquet. Incision was carried down to the subcutaneous tissues with Bovie cautery. The vessels were suture ligated and divided. We skeletonized the tibia and fibula and elevated the periosteum proximally. The tibia was transected with an anterior babble at 12 cm in the fibula was transected 1 cm higher. We then continued our dissection and suture ligated neurovascular bundles as R dissection progressed. We then used Bovie to remove the posterior fascia and muscle from the bones and the leg was sent for pathology. We then utilized suture ligation and Bovie cautery for additional hemostasis were needed. The nerve structures were high ligated and divided. Local anesthesia was administered to the perineural tissues. A rasp was used to smooth the bone edges. We irrigated with copious amounts of saline. The deep muscle and fascia were approximated over the tibia to the periosteum with [id number] 2-0 Vicryl sutures. The fascia was closed with [id number] Vicryl sutures along the entire edge making sure there were in the fascial closure. We then approximated the skin edges with nylon mattress sutures and skin ishaan were used to finish the closure. The skin was cleaned and dried. Xeroform fluffs Kerlix and Mac wrap were used as a final dressing. The patient was then extubated and taken to recovery in stable condition. He tolerated the anesthesia and procedure well. ESTIMATED BLOOD LOSS: Approximately 250 mL. COMPLICATIONS: None PLAN: We'll admit to hospitalist service, with plans for transfer to ARU when medically stable and pain controlled. Analgesia prn, high-protein diet and diabetic diet to help with wound healing, tight glucose control, and careful monitoring of BKA stump. Patient appeared to have adequate blood flow to heal BKA, and since he has a contralateral BKA, we were very motivated to preserve the knee joint to make his ambulation with bilateral prosthetics and easier transition. However, he did have an infection in his foot have to monitor his right leg closely. We will continue 24 hours of antibiotics for this reason. We appreciate the opportunity to participate in the care of this patient. TISHA BOSS MD Mar 03, 2020 13:09
[2020-03-03] MEDS ORDERED: ONDANSETRON 4MG/2ML VIAL IV PRN ×2 (13:15→14:00)
[2020-03-03] MEDS: fentaNYL 100 MCG/2 ML INJECTION (J3010) IV PRN ×4 (13:40→13:57)
[2020-03-03] MEDS: oxyCODONE 5MG TAB PO PRN ×2 (13:56→14:31)
[2020-03-03] MEDS ORDERED: LR 1,000 ML IV SCH (14:00)
[2020-03-03] MEDS: MORPHINE 2 MG/ML 1ML VIAL (J2270) IV PRN ×5 (14:10→19:40)
[2020-03-03] MEDS: diazePAM 5MG TABLET PO PRN ×2 (14:42→20:55)
[2020-03-03] MEDS ORDERED: GLUCOSE 4GM CHEW TABLET PO PRN (16:00)
[2020-03-03] MEDS ORDERED: DEXTROSE 50% 50 ML SYRINGE IV PRN (16:00)
[2020-03-03] MEDS ORDERED: GLUCAGON INJ 1MG VIAL SC PRN (16:00)
[2020-03-03] MEDS: LevoFLOXacin 250 MG TABLET PO SCH (17:40)
[2020-03-03] MEDS: HumaLOG INSULIN (NovoLOG) PER UNIT SC SCH ×2 (17:41→20:56)
--- NOTE | 2020-03-03 18:44 | HPEPDOC ---
General Date of Admission Mar 03, 2020 at 08:17 Date of Service: Mar 03, 2020 Chief Complaint The patient is a 59-year-old male admitted with a reason for visit of Atherosclerosis [place] Arteries With Gangrene.... Source: Patient History of Present Illness Mr. Girard is a 59-year-old male with left below the knee amputation, type 1 diabetes mellitus, temporal arteritis, adrenal insufficiency, and peripheral vascular disease who is here for right below the knee amputation for right foot and ankle gangrene. He seen to the OR by Dr. Boss on 03/03/2020. He was seen after the operation. He was recently here from 02/08/2022 to 02/14/2024 right foot gangrene. Podiatry had done an amputation, the felt that patient would need further leg amputation. Patient was put on Levofloxacin and patient saw Dr. Boss outpatient for further evaluation for amputation. He was then taken to the OR today. When I saw him on [facility], he had pain in his right leg. Otherwise denied any fever or chills, lightheadedness or dizziness, chest pain, dyspnea, abdominal pain, or dysuria. Home Medications Scheduled Aspirin (Aspirin EC) 81 Mg Tab, 81 MG PO DAILY, (Reported) Atorvastatin Calcium (Atorvastatin Calcium) 40 Mg Tab, 40 MG PO DAILY, (Reported) Bimatoprost (Lumigan) 0.01% 2.5ML Drops, 1 DROP OS QHS, (Reported) Brimonidine Tartrate (Alphagan P) 0.1% 5ML Drops, 1 DROP OS BID, (Reported) Citalopram Hydrobromide (Citalopram HBr) 40 Mg Tab, 40 MG PO DAILY, (Reported) Clopidogrel Bisulfate (Clopidogrel) 75 Mg Tab, 75 MG PO DAILY, (Reported) Ferrous Sulfate (Ferrous Sulfate) 325 Mg Tab, 325 MG PO QWEEK, (Reported) Finasteride (Finasteride) 5 Mg Tablet, 5 MG PO DAILY, (Reported) Gabapentin (Gabapentin) 300 Mg Cap, 300 MG PO BID, (Reported) Insulin Human Lispro (Novolog) 100 Unit/1 Ml Vial, 1 DOSE SC ASDIRECTED, (Reported) UP TO 100 UNITS DAILY CONTINUOUS THROUGH INSULIN PUMP Ketoconazole (Ketoconazole) 15 Gm Cream..g., 1 DOSE EXT BID, (Reported) APPLY SPARINGLY TO FACE AND SCALP Levofloxacin (Levofloxacin) 500 Mg Tablet, 500 MG PO QHS Multivitamin (Multivitamins) 1 Each Capsule, 1 CAP PO DAILY, (Reported) Pantoprazole Sodium (Pantoprazole Sodium) 40 Mg Tablet.dr, 40 MG PO BID, (Reported) Prednisone (Prednisone) 5 Mg Tablet, 8 MG PO DAILY, (Reported) Psyllium Husk (Fiber) 0.52 Gm Capsule, 0.52 GM PO DAILY, (Reported) Scheduled PRN Glucagon,Human Recombinant (Glucagon Emergency Kit) 1 Mg Vial, 1 MG IM ASDIRECTED PRN for LOW BLOOD SUGAR, (Reported) Hydrocodone/Acetaminophen (Hydrocodone-Acetamin 5-325 mg) 1 Each Tablet, 1 TAB PO Q6H PRN for PAIN, (Reported) MDD 4 Hydrocodone/Acetaminophen (Hydrocodone-Acetamin 5-325 mg) 1 Each Tablet, 1 TAB PO BIDP PRN for pain Polyethylene Glycol 3350 (Miralax) 119 Gm Powder, 17 GM PO DAILY PRN for CONSTIPATION, (Reported) dilute in 8 ounces of water or juice Tramadol HCl (Tramadol HCl) 50 Mg Tablet, 50 MG PO Q8H PRN for PAIN, (Reported) Allergies Coded Allergies: No Known Allergies (Unverified , 03/01/20) Past Medical History Medical History 1. Type 1 diabetes, on insulin pump 2. Brain tumor. 3. Temporal arteritis 4. Adrenal insufficiency 5. peripheral vascular disease Surgical History 1. Left BKA. 2. Cataract surgery. 3. Right great toe amputation. 4. Fatty tumor removal 5. Right knee surgery 6. Right wrist surgery 7. Right BKA Social History * Smoker: former Smoker (quit in 2006. Smoked for 27 years, 1 pack per day) Alcohol: Denies Drugs: denies A-FIB/CHADSVASC A-FIB History Current/History of A-Fib/PAF?: No Review of Systems Constitutional: Denies: Chills, Fever Eyes: Denies: Vision change ENT: Denies: Dysphagia, Sore Throat Skin: Denies: Rash Pulmonary: Denies: Dyspnea Cardiovascular: Denies: Chest Pain Gastrointestinal: Denies: Nausea, Abdominal Pain Genitourinary: Denies: Dysuria Hematologic: Denies: Bruising Musculoskeletal: Reports: Leg Pain (secondary to surgery) Physical Examination General Exam: Positive: Alert, Cooperative Eye Exam: Positive: EOMI; Negative: Sclera icteric ENT Exam: Positive: Atraumatic Neck Exam: Positive: Supple Chest Exam: Positive: Clear to auscultation Heart Exam: Positive: Rate Normal, Regular Rhythm Abdomen Exam: Positive: Normal bowel sounds, Soft; Negative: Tenderness Extremity Exam: Positive: Other (bilateral BKA) Skin Exam: Negative: Rash, Breakdown Neuro Exam: Positive: Cranial Nerves 3-12 NL Psych Exam: Positive: Mental status NL, Mood NL Vital Signs Vital Signs Date Time Temp Pulse Resp B/P (MAP) Pulse Ox O2 Delivery O2 Flow Rate FiO2 03/03/20 18:00 96.8 89 18 105/51 (69) 100 Nasal Cannula 2.0 Laboratory Data Labs 24H Laboratory Tests 2 03/03/20 08:33: Nucleated Red Blood Cells % (auto) 0.0, Prothrombin Time 12.4, Prothromb Time International Ratio 0.91, Activated Partial Thromboplast Time 30.3, Anion Gap 5L, Glomerular Filtration Rate 47.9L, Calcium Level 9.3 03/03/20 09:26: Bedside Glucose (Misc Panel) 231H 03/03/20 13:08: Bedside Glucose (Misc Panel) 229H 03/03/20 16:36: Bedside Glucose (Misc Panel) 312H CBC/BMP Laboratory Tests 03/03/20 08:33 Assessment/Plan Mr. Girard is a 59-year-old male with a left BKA, type 1 diabetes mellitus, adrenal insufficiency, and peripheral vascular disease who is here with right leg gangrene who is here for a right BKA by Dr. Boss. He is seen to the OR on 03/03/2020. Pain control has been ordered as well as ARU screen. Patient may need inpatient rehabilitation before home Plan / VTE VTE Prophylaxis Ordered?: No VTE Exclusion Mechanical Proph: Bilateral Amputee VTE Exclusion Pharmacological: Bleeding Risk (recent surgery) Plan Plan 1. Right foot gangrene Was seen in early January for right foot gangrene. He was put on Levaquin pending outpatient evaluation He went for a right BKA by Dr. Boss on 03/03/2020 Pain control has been ordered ARU screen ordered 2. Peripheral vascular disease Continue aspirin Vascular surgery requested that we hold Plavix for 24 hours 3. Diabetes mellitus Insulin sliding scale and carb consistent diet 4. Adrenal insufficiency We will continue his prednisone 5. Glaucoma We'll continue his home medications 6. DVT prophylaxis Patient has bilateral amputations. Vascular surgery requested that we withhold DVT prophylaxis today SHARRI PANDEY DO Mar 03, 2020 18:43
[2020-03-03] MEDS: PERCOCET 5MG/325MG TAB PO PRN (18:47)
[2020-03-03] MEDS: ceFAZolin SOD 1 GM in D5W MINI-BAG PLUS 50 ML IV SCH (19:03)
[2020-03-03] MEDS: GABAPENTIN 300 MG CAP PO SCH (20:55)
[2020-03-03] MEDS: PANTOPRAZOLE 40MG TAB (PROTONIX) PO SCH (20:55)
[2020-03-03] MEDS: LATANOPROST 0.005% OPHTH SOLN 2.5 ML OS SCH (20:55)
[2020-03-03] MEDS: BRIMONIDINE 0.1% OPHTH SOLN 5 ML OS SCH (20:55)
[2020-03-03] MEDS: KETOCONAZOLE 2% CREAM EXT SCH (20:56)
[2020-03-04] VITALS (7 sets, daily range): BP systolic 109–136; BP diastolic 56–64; O2SAT 97–100
[2020-03-04] MEDS: ceFAZolin SOD 1 GM in D5W MINI-BAG PLUS 50 ML IV SCH ×3 (03:22→18:46)
[2020-03-04] MEDS: diazePAM 5MG TABLET PO PRN ×2 (05:04→14:08)
[2020-03-04 06:29] LABS: HEMATOCRIT 25.7 % (42.0-52.0); MEAN CORPUSCULAR HGB CONC 31.9 g/dl (32.0-36.5); MEAN CORPUSCULAR VOLUME 94.1 fl (80.0-96.0); PLATELET COUNT, AUTOMATED 200 10^3/uL (150-450); RED BLOOD COUNT 2.73 10^6/uL (4.30-6.10); WHITE BLOOD COUNT 9.9 10^3/uL (4.0-10.0)
[2020-03-04 06:35] LABS: HEMOGLOBIN 8.2 g/dl (13.5-17.5)
[2020-03-04 07:06] LABS: CALCIUM LEVEL 8.8 MG/DL (8.8-10.2); CREATININE FOR GFR 1.79 MG/DL (0.70-1.30); GLOMERULAR FILTRATION RATE 41.4 (>49); POTASSIUM SERUM 4.8 MEQ/L (3.5-5.1)
[2020-03-04] MEDS: PERCOCET 5MG/325MG TAB PO PRN ×2 (09:04→14:09)
[2020-03-04] MEDS: HumaLOG INSULIN (NovoLOG) PER UNIT SC SCH ×4 (09:20→21:40)
[2020-03-04] MEDS: KETOCONAZOLE 2% CREAM EXT SCH ×2 (09:21→21:49)
[2020-03-04] MEDS: predniSONE 1 MG TAB PO SCH (09:21)
[2020-03-04] MEDS: FINASTERIDE 5 MG TAB PO SCH (09:21)
[2020-03-04] MEDS: CitaloPRAM (CeleXA) 20 MG TAB PO SCH (09:21)
[2020-03-04] MEDS: BRIMONIDINE 0.1% OPHTH SOLN 5 ML OS SCH ×2 (09:21→21:40)
[2020-03-04] MEDS: ASPIRIN 81 MG ENTERIC TAB PO SCH (09:22)
[2020-03-04] MEDS: PANTOPRAZOLE 40MG TAB (PROTONIX) PO SCH ×2 (09:22→21:40)
[2020-03-04] MEDS: GABAPENTIN 300 MG CAP PO SCH ×2 (09:22→21:40)
[2020-03-04] MEDS: ATORVASTATIN 20 MG TAB PO SCH (09:22)
[2020-03-04] MEDS: predniSONE 5 MG TAB PO SCH (09:22)
[2020-03-04] MEDS: TAMSULOSIN 0.4 MG CAP PO SCH (12:11)
[2020-03-04 13:00] LABS: HEMATOCRIT 25.8 % (42.0-52.0); HEMOGLOBIN 8.3 g/dl (13.5-17.5); MEAN CORPUSCULAR HGB CONC 32.2 g/dl (32.0-36.5); MEAN CORPUSCULAR VOLUME 93.1 fl (80.0-96.0); PLATELET COUNT, AUTOMATED 191 10^3/uL (150-450); RED BLOOD COUNT 2.77 10^6/uL (4.30-6.10)
--- NOTE | 2020-03-04 13:18 | IPNPDOC ---
Text Note Date of Service The patient was seen on 03/04/20. NOTE Vascular surgery. Dr. Boss. The patient is a 59-year-old patient with atherosclerosis of the [place] artery status post revascularization for nonhealing wounds of the right foot that has progressed to gangrene of the dorsal foot plantar foot heel and ankle, postop day #1 right BKA. The patient was noted to be in pain this morning, he is receiving pain medication. Patient's stump is unwrapped, there is minimal drainage on the dressings. The pulse intact, sutures intact. The area is thoroughly cleaned. Xeroform, 4 x 4's, fluffs, and Kerlix reapplied. Mac wrap reapplied. Continue with pain control. PT/OT. Possibly consider ARU. Encourage protein intake to help facilitate healing. Continue to monitor. VS,Fishbone, I+O VS, Fishbone, I+O Laboratory Tests 03/04/20 06:03 03/04/20 12:46 Vital Signs Date Time Temp Pulse Resp B/P (MAP) Pulse Ox O2 Delivery O2 Flow Rate FiO2 03/04/20 10:23 17 97 Room Air 03/04/20 10:00 99.6 86 123/57 (79) 2.0 I&O- Last 24 Hours up to 6 AM 03/04/20 06:00 Intake Total 2955 ml Output Total 775 ml Balance 2180 ml Florencia Dumont Mar 04, 2020 13:18
[2020-03-04] MEDS: LevoFLOXacin 250 MG TABLET PO SCH (17:33)
--- NOTE | 2020-03-04 21:39 | IPNPDOC ---
Subjective Date Seen The patient was seen on 03/04/20. Subjective Chief Complaint/HPI Mr. Girard is a 59-year-old male with left below the knee amputation, type 1 diabetes mellitus, temporal arteritis, adrenal insufficiency, and peripheral vascular disease who is here for right below the knee amputation for right foot and ankle gangrene. Denies fever, chest pain, dyspnea, or abdominal pain. He has pain at surgical site. Otherwise, this afternoon, he had urinary retention of 700mL. Started Tidwell as there was difficulty in advancing the catheter beyond the prostate. Started tamsulosin. Objective Physical Examination General Exam: Positive: Alert, Cooperative Eye Exam: Positive: EOMI; Negative: Sclera icteric ENT Exam: Positive: Atraumatic Neck Exam: Positive: Supple Chest Exam: Positive: Clear to auscultation Heart Exam: Positive: Rate Normal, Regular Rhythm Abdomen Exam: Positive: Normal bowel sounds, Soft; Negative: Tenderness Extremity Exam: Positive: Other (bilateral BKA) Skin Exam: Negative: Rash, Breakdown Neuro Exam: Positive: Cranial Nerves 3-12 NL Psych Exam: Positive: Mental status NL, Mood NL Assessment /Plan Assessment Mr. Girard is a 59-year-old male with a left BKA, type 1 diabetes mellitus, ad renal insufficiency, and peripheral vascular disease who is here with right leg gangrene who is here for a right BKA by Dr. Boss. He is seen to the OR on 03/03/2020. Pain control has been ordered as well as ARU screen. Patient may need inpatient rehabilitation before home Plan/VTE VTE Prophylaxis Ordered?: No VTE Exclusion Mechanical Proph: Bilateral Amputee VTE Exclusion Pharmacological: Bleeding Risk Plan 1. Right foot gangrene Was seen in early January for right foot gangrene. He was put on Levaquin pending outpatient evaluation He went for a right BKA by Dr. Boss on 03/03/2020 Pain control has been ordered ARU screen ordered 2. Peripheral vascular disease Continue aspirin Vascular surgery requested that we hold Plavix for 24 hours 3. Diabetes mellitus Insulin sliding scale and carb consistent diet 4. Adrenal insufficiency We will continue his prednisone 5. Glaucoma We'll continue his home medications 6. Acute urinary retention -Bladder scan demonstrated 700cc -Difficult to advance beyond prostate -Tidwell and tamsulosin 7. DVT prophylaxis Patient has bilateral amputations. Plan for chemical prophylaxis tomorrow VS, I&O, 24H, [place] Vital Signs/I&O Vital Signs Date Time Temp Pulse Resp B/P (MAP) Pulse Ox O2 Delivery O2 Flow Rate FiO2 03/04/20 16:49 97 Room Air 03/04/20 16:30 16 03/04/20 14:00 98.8 76 122/56 (78) 2.0 I&O- Last 24 Hours up to 6 AM 03/04/20 05:59 Intake Total 2895 ml Output Total 775 ml Balance 2120 ml Laboratory Data 24H LABS Laboratory Tests 2 03/04/20 06:03: Nucleated Red Blood Cells % (auto) 0.0, Anion Gap 6L, Glomerular Filtration Rate 41.4L, Calcium Level 8.8 03/04/20 11:38: Bedside Glucose (Misc Panel) 340H 03/04/20 12:46: Nucleated Red Blood Cells % (auto) 0.0 03/04/20 16:47: Bedside Glucose (Misc Panel) 288H 03/04/20 20:34: Bedside Glucose (Misc Panel) 291H CBC/BMP Laboratory Tests 03/04/20 06:03 03/04/20 12:46 SHARRI PANDEY DO Mar 04, 2020 21:39
[2020-03-04] MEDS: LATANOPROST 0.005% OPHTH SOLN 2.5 ML OS SCH (21:45)
[2020-03-05] VITALS (7 sets, daily range): BP systolic 119–166; BP diastolic 48–71; O2SAT 97
[2020-03-05] MEDS: diazePAM 5MG TABLET PO PRN ×2 (02:36→11:12)
[2020-03-05] MEDS: PERCOCET 5MG/325MG TAB PO PRN ×3 (02:37→21:05)
[2020-03-05] MEDS: ceFAZolin SOD 1 GM in D5W MINI-BAG PLUS 50 ML IV SCH ×2 (03:08→10:12)
[2020-03-05 07:21] LABS: HEMATOCRIT 25.1 % (42.0-52.0); HEMOGLOBIN 8.1 g/dl (13.5-17.5); MEAN CORPUSCULAR HEMOGLOBIN 30.5 pg (27.0-33.0); MEAN CORPUSCULAR HGB CONC 32.3 g/dl (32.0-36.5); MEAN CORPUSCULAR VOLUME 94.4 fl (80.0-96.0); PLATELET COUNT, AUTOMATED 194 10^3/uL (150-450); RED BLOOD COUNT 2.66 10^6/uL (4.30-6.10); WHITE BLOOD COUNT 10.4 10^3/uL (4.0-10.0)
[2020-03-05 07:43] LABS: BLOOD UREA NITROGEN 29 MG/DL (7-18); CALCIUM LEVEL 8.5 MG/DL (8.8-10.2); CARBON DIOXIDE LEVEL 29 MEQ/L (21-32); CHLORIDE LEVEL 101 MEQ/L (98-107); CREATININE FOR GFR 1.21 MG/DL (0.70-1.30); GLOMERULAR FILTRATION RATE > 60.0 (>49); GLUCOSE, FASTING 355 MG/DL (70-100); POTASSIUM SERUM 4.7 MEQ/L (3.5-5.1); SODIUM LEVEL 135 MEQ/L (136-145)
[2020-03-05] MEDS: FINASTERIDE 5 MG TAB PO SCH (09:07)
[2020-03-05] MEDS: ASPIRIN 81 MG ENTERIC TAB PO SCH (09:07)
[2020-03-05] MEDS: PANTOPRAZOLE 40MG TAB (PROTONIX) PO SCH ×2 (09:07→21:05)
[2020-03-05] MEDS: predniSONE 1 MG TAB PO SCH (09:07)
[2020-03-05] MEDS: HumaLOG INSULIN (NovoLOG) PER UNIT SC SCH ×4 (09:07→21:00)
--- NOTE | 2020-03-05 09:07 | IPNPDOC ---
Text Note Date of Service The patient was seen on 03/05/20. NOTE Vascular surgery. Dr. Boss. The patient is a 59-year-old patient with atherosclerosis of the [place] artery status post revascularization for nonhealing wounds of the right foot that has progressed to gangrene of the dorsal foot plantar foot heel and ankle, postop day #2 right BKA. Patient's stump is unwrapped, there is minimal drainage on the dressings. The ishaan intact, sutures intact. The area is thoroughly cleaned. Xeroform, 4 x 4's, fluffs, and Kerlix reapplied. Mac wrap reapplied. Continue with pain control. PT/OT. Possibly consider ARU. Encourage protein intake to help facilitate healing. Continue to monitor. VS,Fishbone, I+O VS, Fishbone, I+O Laboratory Tests 03/04/20 12:46 03/05/20 06:57 Vital Signs Date Time Temp Pulse Resp B/P (MAP) Pulse Ox O2 Delivery O2 Flow Rate FiO2 03/05/20 06:00 98.3 95 17 150/57 (88) 96 Room Air 03/04/20 14:00 2.0 I&O- Last 24 Hours up to 6 AM 03/05/20 05:59 Intake Total 1220 ml Output Total 1775 ml Balance -555 ml Florencia Dumont Mar 05, 2020 09:06
[2020-03-05] MEDS: KETOCONAZOLE 2% CREAM EXT SCH ×2 (09:08→21:06)
[2020-03-05] MEDS: predniSONE 5 MG TAB PO SCH (09:08)
[2020-03-05] MEDS: GABAPENTIN 300 MG CAP PO SCH ×2 (09:08→21:03)
[2020-03-05] MEDS: ATORVASTATIN 20 MG TAB PO SCH (09:08)
[2020-03-05] MEDS: CitaloPRAM (CeleXA) 20 MG TAB PO SCH (09:08)
[2020-03-05] MEDS: BRIMONIDINE 0.1% OPHTH SOLN 5 ML OS SCH ×2 (09:08→21:06)
[2020-03-05] MEDS: TAMSULOSIN 0.4 MG CAP PO SCH (09:08)
[2020-03-05] MEDS: CLOPIDOGREL 75 MG TAB PO SCH (13:44)
--- NOTE | 2020-03-05 14:41 | IPNPDOC ---
Subjective Date Seen The patient was seen on 03/05/20. Subjective Chief Complaint/HPI Mr. Girard is a 59-year-old male with left below the knee amputation, type 1 diabetes mellitus, temporal arteritis, adrenal insufficiency, and peripheral vascular disease who is here for right below the knee amputation for right foot and ankle gangrene. Yesterday, they were able to place Tidwell catheter for acute urinary retention. Overnight, he had difficulty sleeping. Otherwise, denies fever, chest pain, or dyspnea Objective Physical Examination General Exam: Positive: Alert, Cooperative Eye Exam: Positive: EOMI; Negative: Sclera icteric ENT Exam: Positive: Atraumatic Neck Exam: Positive: Supple Chest Exam: Positive: Clear to auscultation Heart Exam: Positive: Rate Normal, Regular Rhythm Abdomen Exam: Positive: Normal bowel sounds, Soft; Negative: Tenderness Extremity Exam: Positive: Other (bilateral BKA) Skin Exam: Negative: Rash, Breakdown Neuro Exam: Positive: Cranial Nerves 3-12 NL Psych Exam: Positive: Mental status NL, Mood NL Assessment /Plan Assessment Mr. Girard is a 59-year-old male with a left BKA, type 1 diabetes mellitus, adrenal insufficiency, and peripheral vascular disease who is here with right leg gangrene who is here for a right BKA by Dr. Boss. He is seen to the OR on 03/03/2020. He will need acute rehab. Pending insurance approval for ARU. Plan/VTE VTE Prophylaxis Ordered?: No VTE Exclusion Mechanical Proph: Bilateral Amputee VTE Exclusion Pharmacological: Bleeding Risk Plan 1. Right foot gangrene Was seen in early January for right foot gangrene. He was put on Levaquin pending outpatient evaluation He went for a right BKA by Dr. Boss on 03/03/2020 Pain control has been ordered ARU screen ordered. Pending insurance approval 2. Peripheral vascular disease Continue aspirin and clopidogrel 3. Diabetes mellitus Insulin sliding scale and carb consistent diet 4. Adrenal insufficiency We will continue his prednisone 5. Glaucoma We'll continue his home medications 6. Acute urinary retention -Bladder scan demonstrated 700cc -Difficult to advance beyond prostate -Tidwell and tamsulosin 7. DVT prophylaxis Patient has bilateral amputations. Starting Lovenox today Dispo: Pending insurance approval for ARU VS, I&O, 24H, Fishbone Vital Signs/I&O Vital Signs Date Time Temp Pulse Resp B/P (MAP) Pulse Ox O2 Delivery O2 Flow Rate FiO2 03/05/20 12:55 15 03/05/20 10:00 99.0 90 120/48 (72) 98 Room Air 03/04/20 14:00 2.0 I&O- Last 24 Hours up to 6 AM 03/05/20 06:00 Intake Total 1260 ml Output Total 2125 ml Balance -865 ml Laboratory Data 24H LABS Laboratory Tests 2 03/04/20 16:47: Bedside Glucose (Misc Panel) 288H 03/04/20 20:34: Bedside Glucose (Misc Panel) 291H 03/05/20 06:57: Nucleated Red Blood Cells % (auto) 0.0, Anion Gap 5L, Glomerular Filtration Rate > 60.0, Calcium Level 8.5L 03/05/20 11:44: Bedside Glucose (Misc Panel) 338H CBC/BMP Laboratory Tests 03/05/20 06:57 SHARRI PANDEY DO Mar 05, 2020 13:23
[2020-03-05] MEDS: LevoFLOXacin 250 MG TABLET PO SCH (17:33)
[2020-03-05] MEDS: LEVEMIR (INSULIN DETEMIR) 1 UNITS/0.01ML SC SCH (21:03)
[2020-03-05] MEDS: LATANOPROST 0.005% OPHTH SOLN 2.5 ML OS SCH (21:06)
[2020-03-06] VITALS (7 sets, daily range): BP systolic 110–163; BP diastolic 60–76; O2SAT 95
[2020-03-06 06:17] LABS: HEMATOCRIT 26.3 % (42.0-52.0); HEMOGLOBIN 8.1 g/dl (13.5-17.5); MEAN CORPUSCULAR HEMOGLOBIN 29.3 pg (27.0-33.0); MEAN CORPUSCULAR HGB CONC 30.8 g/dl (32.0-36.5); MEAN CORPUSCULAR VOLUME 95.3 fl (80.0-96.0); PLATELET COUNT, AUTOMATED 197 10^3/uL (150-450); RED BLOOD COUNT 2.76 10^6/uL (4.30-6.10); WHITE BLOOD COUNT 9.5 10^3/uL (4.0-10.0)
[2020-03-06 06:31] LABS: BLOOD UREA NITROGEN 23 MG/DL (7-18); CALCIUM LEVEL 8.9 MG/DL (8.8-10.2); CARBON DIOXIDE LEVEL 34 MEQ/L (21-32); CHLORIDE LEVEL 103 MEQ/L (98-107); CREATININE FOR GFR 1.03 MG/DL (0.70-1.30); GLOMERULAR FILTRATION RATE > 60.0 (>49); GLUCOSE, FASTING 257 MG/DL (70-100); POTASSIUM SERUM 4.3 MEQ/L (3.5-5.1); SODIUM LEVEL 139 MEQ/L (136-145)
[2020-03-06] MEDS: HumaLOG INSULIN (NovoLOG) PER UNIT SC SCH ×4 (08:40→20:34)
[2020-03-06] MEDS: ENOXAPARIN 40MG/0.4ML SYRINGE (J1650 PER 10MG) SC SCH (08:40)
[2020-03-06] MEDS: PANTOPRAZOLE 40MG TAB (PROTONIX) PO SCH ×2 (08:41→20:34)
[2020-03-06] MEDS: predniSONE 1 MG TAB PO SCH (08:41)
[2020-03-06] MEDS: CitaloPRAM (CeleXA) 20 MG TAB PO SCH (08:41)
[2020-03-06] MEDS: CLOPIDOGREL 75 MG TAB PO SCH (08:41)
[2020-03-06] MEDS: FINASTERIDE 5 MG TAB PO SCH (08:41)
[2020-03-06] MEDS: ATORVASTATIN 20 MG TAB PO SCH (08:41)
[2020-03-06] MEDS: TAMSULOSIN 0.4 MG CAP PO SCH (08:41)
[2020-03-06] MEDS: ASPIRIN 81 MG ENTERIC TAB PO SCH (08:41)
[2020-03-06] MEDS: GABAPENTIN 300 MG CAP PO SCH ×2 (08:41→20:34)
[2020-03-06] MEDS: predniSONE 5 MG TAB PO SCH (08:41)
[2020-03-06] MEDS: PERCOCET 5MG/325MG TAB PO PRN (08:42)
[2020-03-06] MEDS: KETOCONAZOLE 2% CREAM EXT SCH ×2 (08:43→20:36)
[2020-03-06] MEDS: BRIMONIDINE 0.1% OPHTH SOLN 5 ML OS SCH ×2 (08:43→20:36)
--- NOTE | 2020-03-06 12:23 | REP ---
INDICATION: AMS. COMPARISON: Comparison study August 04, 2019.. TECHNIQUE: Helical scanning is acquired. 5 mm axial images were reformatted. Coronal MPR images were generated. FINDINGS: Bone window settings demonstrate an intact bony calvarium. There is no evidence of skull fracture or incidental bony calvarial lesion. The visualized paranasal sinuses appear clear. No intraorbital abnormality is seen. On soft tissue window setting images; the lateral, third, and fourth ventricles are normal in size and position. Lee-white differentiation pattern is normal above and below the tentorium. There are is no evidence of intracranial hemorrhage. No mass, edema, infarction, or midline shift is seen. No extra-axial fluid collection is appreciated. There is vascular calcification at the skull base involving the distal internal carotid arteries bilaterally. There is minimal generalized volume loss. Small vessel changes are noted. These findings are stable when compared with the August 04, 2019 study. IMPRESSION: Vascular calcification and mild diffuse atrophy. Small vessel changes. No acute intracranial abnormality.. <Electronically signed by Dex Pichardo > 03/06/20 [id number]
[2020-03-06 14:07] LABS: ABG BASE EXCESS 8.6 (-2.0-2.0); ABG HCO3 33.3 MEQ/L (22.0-26.0); ABG O2 SATURATION 93.5 % (95.0-99.0); ABG PARTIAL PRESSURE CO2 47.3 mmHg (35.0-45.0); ABG PARTIAL PRESSURE O2 62.1 mmHg (75.0-100.0); ABG STANDARD HCO3 32.3 MEQ/L (22.0-26.0); ABG TOTAL CO2 34.7 MEQ/L (23.0-31.0); ABG pH (ARTERIAL) 7.465 UNITS (7.350-7.450)
--- NOTE | 2020-03-06 15:46 | REP ---
INDICATION: Question left arm weakness, Stroke?. COMPARISON: Comparison brain MRI study is from July 07, 2017.. TECHNIQUE: Axial and sagittal imaging planes are utilized for T1 and T2-weighted scans. Sequences include spin-echo, fast spin echo, FLAIR, and diffusion weighted sequences. FINDINGS: No bony calvarial lesion is seen. There are degenerative changes at the C1-2 level unchanged from the prior study. No compression at the spinal medullary junction is seen. No intraorbital abnormality is appreciated. No significant paranasal sinus disease is apparent. There is no evidence of intracranial hemorrhage. Diffusion-weighted scans show no evidence of restricted diffusion to suggest acute ischemia. No mass, infarct, extra-axial fluid collection or midline shift is seen. There are small vessel changes again noted as on prior IMPRESSION: Small-vessel atherosclerotic changes again noted. No acute intracranial abnormality. No evidence of infarct, bleed, or mass.. <Electronically signed by Dex Pichardo > 03/06/20 [id number]
[2020-03-06] MEDS: LevoFLOXacin 250 MG TABLET PO SCH (17:31)
--- NOTE | 2020-03-06 17:52 | IPNPDOC ---
Subjective Date Seen The patient was seen on 03/06/20. Subjective Chief Complaint/HPI Mr. Girard is a 59-year-old male with left below the knee amputation, type 1 diabetes mellitus, temporal arteritis, adrenal insufficiency, and peripheral vascular disease who is here for right below the knee amputation for right foot and ankle gangrene. Yesterday he was very lethargic and this morning, he was still very lethargic. He only had Percocet overnight and Valium and Percocet the day prior. Ordered CT head for lethargy. Negative for intracranial abnormalities, but on returning there was concern for stroke. He was able to raise both arms, but left arm slightly dropped before he had to catch again. Ordered stat MRI. No CVA. Left arm was still unchanged. He was more awake now and seemed more depressed. Nurse said he spoke with his mother. Objective Physical Examination General Exam: Positive: No Acute Distress Eye Exam: Positive: EOMI; Negative: Sclera icteric ENT Exam: Positive: Atraumatic Neck Exam: Positive: Supple Chest Exam: Positive: Clear to auscultation Heart Exam: Positive: Rate Normal, Regular Rhythm Abdomen Exam: Positive: Normal bowel sounds, Soft; Negative: Tenderness Extremity Exam: Positive: Other (bilateral BKA) Skin Exam: Negative: Rash, Breakdown Neuro Exam: Positive: Cranial Nerves 3-12 NL Psych Exam: Positive: Mental status NL, Mood NL Assessment /Plan Assessment Mr. Girard is a 59-year-old male with a left BKA, type 1 diabetes mellitus, adrenal insufficiency, and peripheral vascular disease who is here with right leg gangrene who is here for a right BKA by Dr. Boss. He is seen to the OR on 03/03/2020. He will need acute rehab. Pending insurance approval for ARU. Plan/VTE VTE Prophylaxis Ordered?: No VTE Exclusion Mechanical Proph: Bilateral Amputee VTE Exclusion Pharmacological: Bleeding Risk Plan 1. Right foot gangrene Was seen in early January for right foot gangrene. He was put on Levaquin pending outpatient evaluation He went for a right BKA by Dr. Boss on 03/03/2020 Pain control has been ordered ARU screen ordered. Pending insurance approval 2. Peripheral vascular disease Continue aspirin and clopidogrel 3. Diabetes mellitus Insulin sliding scale and carb consistent diet 4. Adrenal insufficiency We will continue his prednisone 5. Glaucoma We'll continue his home medications 6. Acute urinary retention -Bladder scan demonstrated 700cc -Difficult to advance beyond prostate -Tidwell and tamsulosin 7. DVT prophylaxis Patient has bilateral amputations. Starting Lovenox today Dispo: Pending insurance approval for ARU VS, I&O, 24H, Fishbone Vital Signs/I&O Vital Signs Date Time Temp Pulse Resp B/P (MAP) Pulse Ox O2 Delivery O2 Flow Rate FiO2 03/06/20 14:00 99.2 90 13 112/60 (77) 96 Room Air 03/04/20 14:00 2.0 I&O- Last 24 Hours up to 6 AM 03/06/20 06:00 Intake Total 150 ml Output Total 1300 ml Balance -1150 ml Laboratory Data 24H LABS Laboratory Tests 2 03/05/20 20:40: Bedside Glucose (Misc Panel) 245H 03/06/20 05:45: Nucleated Red Blood Cells % (auto) 0.0, Anion Gap 2L, Glomerular Filtration Rate > 60.0, Calcium Level 8.9 03/06/20 06:35: Bedside Glucose (Misc Panel) 253H 03/06/20 11:32: Bedside Glucose (Misc Panel) 258H 03/06/20 12:55: Ammonia 11 03/06/20 13:53: Urine Color YELLOW, Urine Appearance CLEAR, Urine pH 6.0, Urine Specific [place] 1.020, Urine Protein NEGATIVE, Urine Glucose (UA) 1+H, Urine Ketones 1+H, Urine Blood 1+H, Urine Nitrite NEGATIVE, Urine Bilirubin NEGATIVE, Urine Urobilinogen 2.0H, Urine Leukocyte Esterase TRACEH, Urine WBC (Auto) 2, Urine RBC (Auto) 4H, Urine Hyaline Casts (Auto) 0, Urine Bacteria (Auto) NEGATIVE, Urine Squamous Epithelial Cells 0, Urine Mucus (Auto) SMALL, Urine Sperm (Auto) , Blood Gas Bicarbonate Standard 32.3H, Arterial Blood pH 7.465H, Arterial Blood Partial Pressure CO2 47.3H, Arterial Blood Partial Pressure O2 62.1L, Arterial Blood Total CO2 34.7H, Arterial Blood HCO3 33.3H, Arterial Blood Base Excess 8.6H, Arterial Blood Oxygen Saturation 93.5L 03/06/20 13:58: Bedside Glucose (Misc Panel) 238H 03/06/20 16:57: Bedside Glucose (Misc Panel) 211H CBC/BMP Laboratory Tests 03/06/20 05:45 Microbiology Microbiology 03/06/20 Urine Culture, Received Pending SHARRI PNADEY DO Mar 06, 2020 17:52
[2020-03-06] MEDS: LATANOPROST 0.005% OPHTH SOLN 2.5 ML OS SCH (20:36)
[2020-03-06] MEDS: LEVEMIR (INSULIN DETEMIR) 1 UNITS/0.01ML SC SCH (20:36)
[2020-03-07] VITALS (7 sets, daily range): BP systolic 108–150; BP diastolic 54–85; O2SAT 95–96
[2020-03-07] MEDS: PERCOCET 5MG/325MG TAB PO PRN ×2 (00:53→12:43)
[2020-03-07 07:51] LABS: HEMATOCRIT 25.1 % (42.0-52.0); HEMOGLOBIN 8.1 g/dl (13.5-17.5); MEAN CORPUSCULAR HEMOGLOBIN 30.6 pg (27.0-33.0); MEAN CORPUSCULAR HGB CONC 32.3 g/dl (32.0-36.5); MEAN CORPUSCULAR VOLUME 94.7 fl (80.0-96.0); PLATELET COUNT, AUTOMATED 199 10^3/uL (150-450); RED BLOOD COUNT 2.65 10^6/uL (4.30-6.10); WHITE BLOOD COUNT 8.2 10^3/uL (4.0-10.0)
[2020-03-07] MEDS: ENOXAPARIN 40MG/0.4ML SYRINGE (J1650 PER 10MG) SC SCH (08:10)
[2020-03-07] MEDS: HumaLOG INSULIN (NovoLOG) PER UNIT SC SCH ×4 (08:10→22:12)
[2020-03-07] MEDS: ATORVASTATIN 20 MG TAB PO SCH (08:11)
[2020-03-07] MEDS: predniSONE 1 MG TAB PO SCH (08:11)
[2020-03-07] MEDS: GABAPENTIN 300 MG CAP PO SCH ×2 (08:11→22:11)
[2020-03-07] MEDS: PANTOPRAZOLE 40MG TAB (PROTONIX) PO SCH ×2 (08:11→22:10)
[2020-03-07] MEDS: BRIMONIDINE 0.1% OPHTH SOLN 5 ML OS SCH ×2 (08:11→22:15)
[2020-03-07] MEDS: ASPIRIN 81 MG ENTERIC TAB PO SCH (08:11)
[2020-03-07] MEDS: KETOCONAZOLE 2% CREAM EXT SCH ×2 (08:11→22:15)
[2020-03-07] MEDS: predniSONE 5 MG TAB PO SCH (08:11)
[2020-03-07] MEDS: CitaloPRAM (CeleXA) 20 MG TAB PO SCH (08:11)
[2020-03-07] MEDS: FINASTERIDE 5 MG TAB PO SCH (08:11)
[2020-03-07] MEDS: CLOPIDOGREL 75 MG TAB PO SCH (08:11)
[2020-03-07] MEDS: TAMSULOSIN 0.4 MG CAP PO SCH (08:11)
[2020-03-07 08:25] LABS: BLOOD UREA NITROGEN 22 MG/DL (7-18); CALCIUM LEVEL 8.7 MG/DL (8.8-10.2); CARBON DIOXIDE LEVEL 32 MEQ/L (21-32); CHLORIDE LEVEL 101 MEQ/L (98-107); CREATININE FOR GFR 1.06 MG/DL (0.70-1.30); GLOMERULAR FILTRATION RATE > 60.0 (>49); GLUCOSE, FASTING 266 MG/DL (70-100); POTASSIUM SERUM 4.4 MEQ/L (3.5-5.1); SODIUM LEVEL 138 MEQ/L (136-145)
[2020-03-07] MEDS: LevoFLOXacin 250 MG TABLET PO SCH (17:17)
--- NOTE | 2020-03-07 18:09 | IPNPDOC ---
Subjective Date Seen The patient was seen on 03/07/20. Subjective Chief Complaint/HPI Mr. Girard is a 59-year-old male with left below the knee amputation, type 1 diabetes mellitus, temporal arteritis, adrenal insufficiency, and peripheral vascular disease who is here for right below the knee amputation for right foot and ankle gangrene. Today, he appeared depressed. Reports depression since a teenager. Denies SI. Otherwise denies fever, chest pain, dyspnea, abdominal pain, or leg stump pain. Objective Physical Examination General Exam: Positive: No Acute Distress Eye Exam: Positive: EOMI; Negative: Sclera icteric ENT Exam: Positive: Atraumatic Neck Exam: Positive: Supple Chest Exam: Positive: Clear to auscultation Heart Exam: Positive: Rate Normal, Regular Rhythm Abdomen Exam: Positive: Normal bowel sounds, Soft; Negative: Tenderness Extremity Exam: Positive: Other (bilateral BKA) Skin Exam: Negative: Rash, Breakdown Neuro Exam: Positive: Cranial Nerves 3-12 NL Psych Exam: Positive: Mental status NL, Mood NL Assessment /Plan Assessment Mr. Girard is a 59-year-old male with a left BKA, type 1 diabetes mellitus, adrenal insufficiency, and peripheral vascular disease who is here with right leg gangrene who is here for a right BKA by Dr. Boss. He is seen to the OR on 03/03/2020. He will need acute rehab. Pending insurance approval for ARU. Plan/VTE VTE Prophylaxis Ordered?: Yes VTE Exclusion Mechanical Proph: Bilateral Amputee Plan 1. Right foot gangrene Was seen in early January for right foot gangrene. He was put on Levaquin pending outpatient evaluation He went for a right BKA by Dr. Boss on 03/03/2020 Pain control has been ordered ARU screen ordered. Pending insurance approval 2. Peripheral vascular disease Continue aspirin and clopidogrel 3. Diabetes mellitus Insulin sliding scale and carb consistent diet 4. Adrenal insufficiency We will continue his prednisone 5. Glaucoma We'll continue his home medications 6. Acute urinary retention -Bladder scan demonstrated 700cc -Difficult to advance beyond prostate -[place] and tamsulosin 7. DVT prophylaxis Patient has bilateral amputations. On Lovenox Dispo: Pending insurance approval for ARU VS, I&O, 24H, Fishbone Vital Signs/I&O Vital Signs Date Time Temp Pulse Resp B/P (MAP) Pulse Ox O2 Delivery O2 Flow Rate FiO2 03/07/20 14:00 98.2 94 18 111/54 (73) 92 Room Air 03/04/20 14:00 2.0 I&O- Last 24 Hours up to 6 AM 03/07/20 06:00 Intake Total 1610 ml Output Total 775 ml Balance 835 ml Laboratory Data 24H LABS Laboratory Tests 2 03/06/20 20:26: Bedside Glucose (Misc Panel) 184H 03/07/20 07:16: Nucleated Red Blood Cells % (auto) 0.0, Anion Gap 5L, Glomerular Filtration Rate > 60.0, Calcium Level 8.7L 03/07/20 07:49: Bedside Glucose (Misc Panel) 278H 03/07/20 12:07: Bedside Glucose (Misc Panel) 285H 03/07/20 16:39: Bedside Glucose (Misc Panel) 377H CBC/BMP Laboratory Tests 03/07/20 07:16 Microbiology Microbiology 03/06/20 Urine Culture, Received Pending SHARRI PANDEY DO Mar 07, 2020 18:09
[2020-03-07] MEDS: LEVEMIR (INSULIN DETEMIR) 1 UNITS/0.01ML SC SCH (22:11)
[2020-03-07] MEDS: LATANOPROST 0.005% OPHTH SOLN 2.5 ML OS SCH (22:16)
[2020-03-08 06:00] VITALS: BP 145/69
[2020-03-08 06:22] LABS: HEMATOCRIT 24.1 % (42.0-52.0); HEMOGLOBIN 7.9 g/dl (13.5-17.5); MEAN CORPUSCULAR HEMOGLOBIN 29.9 pg (27.0-33.0); MEAN CORPUSCULAR HGB CONC 32.8 g/dl (32.0-36.5); MEAN CORPUSCULAR VOLUME 91.3 fl (80.0-96.0); PLATELET COUNT, AUTOMATED 223 10^3/uL (150-450); RED BLOOD COUNT 2.64 10^6/uL (4.30-6.10); WHITE BLOOD COUNT 6.9 10^3/uL (4.0-10.0)
[2020-03-08 06:40] LABS: BLOOD UREA NITROGEN 21 MG/DL (7-18); CALCIUM LEVEL 8.3 MG/DL (8.8-10.2); CARBON DIOXIDE LEVEL 32 MEQ/L (21-32); CHLORIDE LEVEL 99 MEQ/L (98-107); CREATININE FOR GFR 1.04 MG/DL (0.70-1.30); GLOMERULAR FILTRATION RATE > 60.0 (>49); GLUCOSE, FASTING 281 MG/DL (70-100); POTASSIUM SERUM 4.2 MEQ/L (3.5-5.1); SODIUM LEVEL 136 MEQ/L (136-145)
[2020-03-08] MEDS: ATORVASTATIN 20 MG TAB PO SCH (08:16)
[2020-03-08] MEDS: FINASTERIDE 5 MG TAB PO SCH (08:16)
[2020-03-08] MEDS: predniSONE 1 MG TAB PO SCH (08:17)
[2020-03-08] MEDS: ASPIRIN 81 MG ENTERIC TAB PO SCH (08:17)
[2020-03-08] MEDS: PANTOPRAZOLE 40MG TAB (PROTONIX) PO SCH (08:17)
[2020-03-08] MEDS: GABAPENTIN 300 MG CAP PO SCH (08:17)
[2020-03-08] MEDS: predniSONE 5 MG TAB PO SCH (08:17)
[2020-03-08] MEDS: TAMSULOSIN 0.4 MG CAP PO SCH (08:17)
[2020-03-08] MEDS: CLOPIDOGREL 75 MG TAB PO SCH (08:17)
[2020-03-08] MEDS: CitaloPRAM (CeleXA) 20 MG TAB PO SCH (08:17)
[2020-03-08] MEDS: ENOXAPARIN 40MG/0.4ML SYRINGE (J1650 PER 10MG) SC SCH (08:18)
[2020-03-08] MEDS: BRIMONIDINE 0.1% OPHTH SOLN 5 ML OS SCH (08:19)
[2020-03-08] MEDS: KETOCONAZOLE 2% CREAM EXT SCH (08:19)
[2020-03-08] MEDS: HumaLOG INSULIN (NovoLOG) PER UNIT SC SCH ×2 (08:19→12:27)
[2020-03-08] MEDS: PERCOCET 5MG/325MG TAB PO PRN (08:30)
--- NOTE | 2020-03-08 08:38 | IPNPDOC ---
Text Note Date of Service The patient was seen on 03/08/20. NOTE Vascular surgery. Dr. Boss. The patient is a 59-year-old patient with atherosclerosis of the [place] artery status post revascularization for nonhealing wounds of the right foot that has progressed to gangrene of the dorsal foot plantar foot heel and ankle, postop day #5 right BKA. Patient's stump is unwrapped, there is minimal drainage on the dressings. The ishaan intact, sutures intact. The area is thoroughly cleaned. Xeroform, 4 x 4's, fluffs, and Kerlix reapplied. Mac wrap reapplied. Continue with pain control. PT/OT. Consider ARU. Reinforced with pt to keep the knee/stump straight as much as possible. Encourage protein intake to help facilitate healing. Continue to monitor. VS,Fishbone, I+O VS, Fishbone, I+O Laboratory Tests 03/08/20 05:59 Vital Signs Date Time Temp Pulse Resp B/P (MAP) Pulse Ox O2 Delivery O2 Flow Rate FiO2 03/08/20 08:30 16 03/08/20 06:00 97.9 81 145/69 (94) 99 Room Air 03/04/20 14:00 2.0 I&O- Last 24 Hours up to 6 AM 03/08/20 05:59 Intake Total 2125 ml Output Total 650 ml Balance 1475 ml Florencia Dumont Mar 08, 2020 08:38
[2020-03-08] MEDS ORDERED: DOCUSATE SODIUM 100MG CAPSULE PO SCH (09:00)
[2020-03-08] MEDS ORDERED: FLOM0.4C39 PO (09:51)
[2020-03-08] MEDS ORDERED: DOK1CAP7 PO (10:10)
[2020-03-08] MEDS ORDERED: MIRALAX *UNIT DOSE* 17GM PACKET PO PRN (10:15)
--- NOTE | 2020-03-08 12:37 | DS.PDOC ---
Discharge Summary General Date of Admission Mar 03, 2020 at 08:17 Date of Discharge 03/08/2020 Primary Care Physician: SONIA JUNG MD Attending Physician: SHARRI NY DO Specialist/Consultants Involve: TISHA BOSS MD Discharge Summary PROCEDURES PERFORMED DURING STAY: None. ADMITTING DIAGNOSES: 1. Right foot gangrene 2. Peripheral vascular disease 3. Diabetes Mellitus 4. Adrenal insufficiency 5. Glaucoma DISCHARGE DIAGNOSES: 1. Right foot gangrene s/p right BKA 2. Peripheral vascular disease 3. Diabetes Mellitus 4. Adrenal insufficiency 5. Glaucoma COMPLICATIONS/CHIEF COMPLAINT: Atherosclerosis [place] Arteries With Gangrene. HISTORY OF PRESENT ILLNESS: 59 year old male with left below the knee amputation, type 1 diabetes mellitus, temporal arteritis, adrenal insufficiency, and peripheral vascular disease who is here for right below the knee amputation for right foot and ankle gangrene. He seen to the OR by Dr. Boss on 03/03/2020. He was seen after the operation. He was recently here from 02/08/2022 to 02/14/2024 right foot gangrene. Podiatry had done an amputation, the felt that patient would need further leg amputation. Patient was put on Levofloxacin and patient saw Dr. Delgado outpatient for further evaluation for amputation. He was then taken to the OR today. When he was seen post-operat [address], he had pain in his right leg. Otherwise denied any fever or chills, lightheadedness or dizziness, chest pain, dyspnea, abdominal pain, or dysuria. HOSPITAL COURSE: Patient was admitted post-operatively after right sided BKA with Dr. Delgado. He was continued on his regular home medications, including plavix which was restarted 24 hours after surgery. He continued to have pain which was managed with oral pain medications. He additionally had post-operative urinary retention which was managed temporarily with a aceves catheter. He was started on flomax and the aceves catheter was removed. His pain improved and he was evaluated by PT who suggested acute rehab after discharge prior to return home. DISCHARGE MEDICATIONS: Please see below. ALLERGIES: Please see below. PHYSICAL EXAMINATION ON DISCHARGE: VITAL SIGNS: Please see below. GENERAL: Alert, comfortable, in no acute distress HEENT: Normocephalic, atraumatic, EOMI, moist mucous membranes NECK: Supple, trachea midline CARDIOVASCULAR: Regular rate and rhythm, normal S1 and S2. No murmurs, rubs, or gallops RESPIRATORY: Clear to auscultation bilaterally with equal air entry bilaterally. No wheezing, rhonchi, or rales. ABDOMEN: Soft, nontender, nondistended, bowel sounds present EXTREMITIES: Bilateral BKA SKIN: [place], warm, dry NEUROLOGIC: Alert and oriented x3 to person, place and time. No focal deficits appreciated PSYCHIATRIC: Mood and affect appropriate LABORATORY DATA: Please see below. IMAGING: - Head CT Vascular calcification and mild diffuse atrophy. Small vessel changes. No acute intracranial abnormality. - Brain MRI Small-vessel atherosclerotic changes again noted. No acute intracranial abnormality. No evidence of infarct, bleed, or mass. PROGNOSIS: Fair ACTIVITY: As tolerated, with assistance DIET: High protein with Navdeep BID DISCHARGE PLAN/DISPOSITION: Discharge to ARU DISCHARGE INSTRUCTIONS: 1. Follow-up with your PCP in 7-10 days 2. Please take all medications as prescribed 3. If your symptoms return or your condition worsens, please call your PCP or return to the ED for further evaluation. ITEMS TO FOLLOWUP ON ON OUTPATIENT: None DISCHARGE CONDITION: Stable. TIME SPENT ON DISCHARGE: Greater than 35 minutes. Vital Signs/I&Os Vital Signs Date Time Temp Pulse Resp B/P (MAP) Pulse Ox O2 Delivery O2 Flow Rate FiO2 03/08/20 10:30 16 03/08/20 06:00 97.9 81 145/69 (94) 99 Room Air 03/04/20 14:00 2.0 I&O- Last 24 Hours up to 6 AM 03/08/20 05:59 Intake Total 2125 ml Output Total 650 ml Balance 1475 ml Laboratory Data Labs 24H Laboratory Tests 2 03/07/20 12:07: Bedside Glucose (Misc Panel) 285H 03/07/20 16:39: Bedside Glucose (Misc Panel) 377H 03/07/20 21:27: Bedside Glucose (Misc Panel) 331H 03/08/20 05:59: Nucleated Red Blood Cells % (auto) 0.0, Anion Gap 5L, Glomerular Filtration Rate > 60.0, Calcium Level 8.3L CBC/BMP Laboratory Tests 03/08/20 05:59 FSBS Laboratory Tests Test 03/07/20 12:07 03/07/20 16:39 03/07/20 21:27 Range/Units Bedside Glucose (Misc Panel) 285 377 331 80-115 MG/DL Microbiology Microbiology 03/06/20 Urine Culture - Final, Complete Discharge Medications Scheduled Aspirin (Aspirin EC) 81 Mg Tab, 81 MG PO DAILY, (Reported) Atorvastatin Calcium (Atorvastatin Calcium) 40 Mg Tab, 40 MG PO DAILY, (Reported) Bimatoprost (Lumigan) 0.01% 2.5ML Drops, 1 DROP OS QHS, (Reported) Brimonidine Tartrate (Alphagan P) 0.1% 5ML Drops, 1 DROP OS BID, (Reported) Citalopram Hydrobromide (Citalopram HBr) 40 Mg Tab, 40 MG PO DAILY, (Reported) Clopidogrel Bisulfate (Clopidogrel) 75 Mg Tab, 75 MG PO DAILY, (Reported) Docusate Sodium (Dok) 100 Mg Capsule, 100 MG PO BID Ferrous Sulfate (Ferrous Sulfate) 325 Mg Tab, 325 MG PO QWEEK, (Reported) Finasteride (Finasteride) 5 Mg Tablet, 5 MG PO DAILY, (Reported) Gabapentin (Gabapentin) 300 Mg Cap, 300 MG PO BID, (Reported) Insulin Human Lispro (Novolog) 100 Unit/1 Ml Vial, 1 DOSE SC ASDIRECTED, (Reported) UP TO 100 UNITS DAILY CONTINUOUS THROUGH INSULIN PUMP Ketoconazole (Ketoconazole) 15 Gm Cream..g., 1 DOSE EXT BID, (Reported) APPLY SPARINGLY TO FACE AND SCALP Multivitamin (Multivitamins) 1 Each Tablet, 1 TAB PO DAILY, (Reported) Pantoprazole Sodium (Pantoprazole Sodium) 40 Mg Tablet.dr, 40 MG PO BID, (Reported) Prednisone (Prednisone) 5 Mg Tablet, 5 MG PO DAILY, (Reported) Psyllium Husk (Fiber) 0.52 Gm Capsule, 0.52 GM PO DAILY, (Reported) Tamsulosin HCl (Flomax) 0.4 Mg Capsule, 0.4 MG PO DAILY Scheduled PRN Glucagon,Human Recombinant (Glucagon Emergency Kit) 1 Mg Vial, 1 MG IM ASDIRECTED PRN for LOW BLOOD SUGAR, (Reported) Hydrocodone/Acetaminophen (Hydrocodone-Acetamin 5-325 mg) 1 Each Tablet, 1 TAB PO Q6H PRN for PAIN, (Reported) MDD 4 Polyethylene Glycol 3350 (Miralax) 119 Gm Powder, 17 GM PO DAILY PRN for CONSTIPATION, (Reported) dilute in 8 ounces of water or juice Tramadol HCl (Tramadol HCl) 50 Mg Tablet, 50 MG PO Q8H PRN for PAIN, (Reported) Allergies Coded Allergies: No Known Allergies (Unverified , 03/01/20) GME ATTESTATION GME ATTESTATION My faculty preceptor for this patient encounter was physically present during the encounter and was fully available. All aspects of the patient interview, examination, medical decision making process, and medical care plan development were reviewed and approved by the faculty preceptor. The faculty preceptor is aware and concurs with the plan as stated in the body of this note and will attest to such by his/her cosignature. ATTENDING NOTE I, Sharri Ny, saw and evaluated the patient. I agree with the finding and the plan of care as documented in the resident note. DEVAN RODRIGEZ D.O. Mar 08, 2020 12:37 SHARRI NY DO Mar 08, 2020 19:29
[2020-03-08] MEDS ORDERED: MULT-40 PO (16:11)
== END 2020-03-08 18:00 | DRG 240 ==
LOC: M OR 08:17 → M MSPAV 15:42
PROVIDERS: ADMIT Surgery Vascular Surgery; ATTEND Internal Medicine
PROC: 0Y6H0Z3 Detachment at Right Lower Leg, Low, Open Approach (ICD-10-PCS; principal; 2020-03-03 10:40)
DX: E10.52 Type 1 diabetes mellitus with diabetic peripheral angiopathy with gangrene (principal); E27.40 Unspecified adrenocortical insufficiency; I70.209 Unspecified atherosclerosis of native arteries of extremities, unspecified extremity; M31.6 Other giant cell arteritis; H40.9 Unspecified glaucoma; Z79.82 Long term (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; Z79.899 Other long term (current) drug therapy; Z79.4 Long term (current) use of insulin; Z87.891 Personal history of nicotine dependence; Z89.512 Acquired absence of left leg below knee; R33.9 Retention of urine, unspecified

== ENCOUNTER 2020-03-08 11:26 | Inpatient (IN) | payer MEDICARE, MEDICAID ==
[~2020-03-08] VITALS: Ht 175.3 cm; Wt 64.6 kg
[~2020-03-08 11:26] MED LIST changes: +DOK1CAP7 PO; +FLOM0.4C39 PO; -LR 1,000 ML IV ONE; +LevoFLOXacin 250 MG TABLET PO SCH; -ceFAZolin SOD 2 GM in IV 1 EA IV ONE
[2020-03-08] MEDS ORDERED: GLUCAGON INJ 1MG VIAL SC PRN (14:45)
[2020-03-08] MEDS ORDERED: GLUCOSE 4GM CHEW TABLET PO PRN (14:45)
[2020-03-08] MEDS ORDERED: oxyCODONE 5MG TAB PO PRN (14:45)
[2020-03-08] MEDS ORDERED: FLEET ENEMA PR PRN (14:45)
[2020-03-08] MEDS ORDERED: DEXTROSE 50% 50 ML SYRINGE IV PRN (14:45)
[2020-03-08 14:50] VITALS: BP 120/60
--- NOTE | 2020-03-08 14:56 | HPEPDOC ---
[employer] Note DATE OF ADMISSION: 03-08-20 DATE OF SERVICE: 03-09-20 TIME OF ADMISSION: Please refer to physician's admission order. SOURCE OF ADMISSION INFORMATION: patient and [facility] records CHIEF COMPLAINT: right BKA HISTORY OF PRESENT ILLNESS: 59M pmh adrenal insufficiency, DM1, PVD, hx of left BKA, temporal arteritis, presented to [facility] ED on 03-03-20 with right sided gangrenous lower extremity after a recent right toe amputation and underwent a BKA on 03-03-20. Following surgery patient was found to have urinary retention for which a aceves catheter was placed and he was started on Flomax. In addition he had post-op anemia and was maintained on oral antibiotics due to concern for osteomyelitis. He had persistent hyperglycemia treated with insulin and assessed by therapy who found him to have molbiity and ADL impairments below his prior level of function an deemed medically appropriate for discharge to ARU on 03-08-20. REVIEW OF SYSTEMS: The following is a completed review of systems and has been reviewed. Review of systems otherwise unremarkable. PAIN: Patient self reports right limb pain EYES: No recent vision changes EARS, NOSE, & THROAT: No throat pain, or dysphagia, or rhinorrhea CARDIOVASCULAR: Denies chest pain or palpitations PULMONARY:Denies shortness of breath GASTROINTESTINAL: + constipation GENITOURINARY: +urinary retention MUSCULOSKELETAL: s/p right BKA NEUROLOGICAL:denies paresthesias HEMATOLOGICAL: +anemia SKIN: right BKA incision PSYCHIATRIC: Unremarkable All other review of systems found to be negative. PAST MEDICAL HISTORY: as per HPI PAST SURGICAL HISTORY: as per HPI and cataract surgery ALLERGIES: Please see below. MEDICATIONS: Please see below. SOCIAL HISTORY: no etoh/smoking/illicit drugs DIET: 2gm low sodium, consistent carbs, Navdeep PHYSICAL EXAMINATION: VITAL SIGNS: Please see below. GENERAL: Pleasant and cooperative. No acute distress. pale HEENT: PERRL. Extraocular movements intact. Clear conjunctiva CARDIOVASCULAR: Regular rate and rhythm. No murmurs, rubs, or gallops LUNGS: Clear to auscultation bilaterally. No wheezes. No rhonchi ABDOMEN: Soft, nontender, nondistended. Positive bowel sounds. Normal active bowel sounds NEUROLOGICAL: Alert and oriented times three. Cranial nerves II through XII grossly intact. Sensation grossly intact EXTREMITIES: 5/5 strength bilateral upper extremities. 5/5 bilat hip flexor and knee flexor/extension SKIN: right residual limb incision c/d/i, no hematoma, erythema, or drainage LABORATORY DATA: Please see below. IMAGING: Imaging documentation personally reviewed by record FUNCTIONAL STATUS: Premorbid: Mod-Independent with all activities of daily life as well as mobility On Admission: Min assist for functional transfers, bed mobility, wheelchair mobility, dressing GOALS: Mod-I from wheelchair level for mobility, dressing, toileting, bathing, limb care ASSESSMENT:59-year-old M with past medical history of DM1 and PVD who presents status post right BKA PLAN: 1. rehab- PT/OT advance mobility, ADLs, strengthen/stretch/maintain ROM, teach limb care/maintenance 2. Neuro- peripheral polyneuropathy in setting of DM and PVD contributing to mobility impairments- optimize glucose control 3. CArdiac/Vas- hx of PVD with left BKA in the past now s/p right BKA 03-03-20, c/u ASa and Plavix in addition to statin -vascular consulted, c/u wound care, monitor for infection, currently on Levaquin 4. Resp- encourage incentive spiormetry, monitor for infection 5. Heme- post-op anemia, consider transfusion if Hgb <8 or symptomatic- patient to reveice 1 unit today due to dizziness and hypotension in therapy this morning 6. Endo- hx of DM1, c/u Insulin coverage-patient asked to bring in home insulin pump for better control as episodes of hyperglycemia coupled with hypoglycemia -Adrenal insufficiency, c/u daily prednisone 7. GI ppx- protonix BID 8. DVT ppx- lovenox 9. Pain- tylenol and oxycodone, c/u Gabapentin 10. - hx of BPH on proscar, flomax added in acute side for retention, will change to qHS for daytime dizziness and d/c aceves and start PVR trials today 11. DIspo- TBD POST ADMISSION PHYSICIAN EVALUATION: Medical and functional status: Description of medical status, medical assessment: As above. Rehabilitation diagnosis and current and prior cold morbid medical conditions as above. Risk of complications and plans to mitigate them as above. Description of functional status current status is as above. Prior status as above. Status compared to preadmission: There are no clinically significant differences between the patient's current status and the information described on the preadmission screening document. Treatment plan anticipated: Treatment plan is as described above. Required disciplines including physical therapy, occupational therapy, others as noted above. Intensity of services: 3 hours a day, 6 days a week. Special considerations: There are no specific special or safety considerations that would likely preclude immediate implementation of an intensive rehabilitation program or subsequently influence the plan of care. ATTESTATION: Considering all the information above, it is my best judgment that this patient requires intensive rehabilitation therapy as described above and an inpatient hospital environment due to the complexity of nursing, medical, and rehabilitation needs required by the patient. Furthermore, this patient can reasonably be expected to participate in an benefit from an inpatient rehabilitation stay with an interdisciplinary team approach to the delivery of rehabilitation care under the direction and supervision of rehabilitation physician. PROGNOSIS: Excellent ESTIMATED LENGTH OF STAY:10-14 days. PROJECTED DISCHARGE DESTINATION: Home with family support and any durable medical equipment required to increase functional safety and mobility TIME SPENT COUNSELING AND COORDINATING INITIAL CARE: Greater than 70 minutes. Vital Signs Vital Signs Date Time Temp Pulse Resp B/P (MAP) Pulse Ox O2 Delivery O2 Flow Rate FiO2 03/08/20 14:50 98.1 79 18 120/60 (80) 96 Room Air Home Medications Scheduled Aspirin (Aspirin EC) 81 Mg Tab, 81 MG PO DAILY, (Reported) Atorvastatin Calcium (Atorvastatin Calcium) 40 Mg Tab, 40 MG PO DAILY, (Reported) Bimatoprost (Lumigan) 0.01% 2.5ML Drops, 1 DROP OS QHS, (Reported) Brimonidine Tartrate (Alphagan P) 0.1% 5ML Drops, 1 DROP OS BID, (Reported) Citalopram Hydrobromide (Citalopram HBr) 40 Mg Tab, 40 MG PO DAILY, (Reported) Clopidogrel Bisulfate (Clopidogrel) 75 Mg Tab, 75 MG PO DAILY, (Reported) Docusate Sodium (Dok) 100 Mg Capsule, 100 MG PO BID Ferrous Sulfate (Ferrous Sulfate) 325 Mg Tab, 325 MG PO QWEEK, (Reported) Finasteride (Finasteride) 5 Mg Tablet, 5 MG PO DAILY, (Reported) Gabapentin (Gabapentin) 300 Mg Cap, 300 MG PO BID, (Reported) Insulin Human Lispro (Novolog) 100 Unit/1 Ml Vial, 1 DOSE SC ASDIRECTED, (Reported) UP TO 100 UNITS DAILY CONTINUOUS THROUGH INSULIN PUMP Ketoconazole (Ketoconazole) 15 Gm Cream..g., 1 DOSE EXT BID, (Reported) APPLY SPARINGLY TO FACE AND SCALP Multivitamin (Multivitamins) 1 Each Tablet, 1 TAB PO DAILY, (Reported) Pantoprazole Sodium (Pantoprazole Sodium) 40 Mg Tablet.dr, 40 MG PO BID, (Reported) Prednisone (Prednisone) 5 Mg Tablet, 5 MG PO DAILY, (Reported) Psyllium Husk (Fiber) 0.52 Gm Capsule, 0.52 GM PO DAILY, (Reported) Tamsulosin HCl (Flomax) 0.4 Mg Capsule, 0.4 MG PO DAILY Scheduled PRN Glucagon,Human Recombinant (Glucagon Emergency Kit) 1 Mg Vial, 1 MG IM ASDIRECTED PRN for LOW BLOOD SUGAR, (Reported) Hydrocodone/Acetaminophen (Hydrocodone-Acetamin 5-325 mg) 1 Each Tablet, 1 TAB PO Q6H PRN for PAIN, (Reported) MDD 4 Polyethylene Glycol 3350 (Miralax) 119 Gm Powder, 17 GM PO DAILY PRN for CONSTIPATION, (Reported) dilute in 8 ounces of water or juice Tramadol HCl (Tramadol HCl) 50 Mg Tablet, 50 MG PO Q8H PRN for PAIN, (Reported) Allergies Coded Allergies: No Known Allergies (Unverified , 03/01/20) A-FIB/CHADSVASC A-FIB History Current/History of A-Fib/PAF?: No Current PO Anticoag Therapy: No JORGE A RIOJAS MD Mar 08, 2020 14:56
[2020-03-08] MEDS ORDERED: ACETAMINOPHEN 500 MG TAB PO SCH (16:00)
[2020-03-08] MEDS ORDERED: DOCUSATE SODIUM 100MG CAPSULE PO SCH (16:00)
[2020-03-08] MEDS ORDERED: REMEDY PHYTOPLEX Z-GUARD PASTE 113GM TUBE (FROM STOREROOM PRODUCT) TOP SCH (16:00)
[2020-03-08] MEDS ORDERED: MULT-40 PO (16:11)
[2020-03-08] MEDS: LevoFLOXacin 250 MG TABLET PO SCH (17:31)
[2020-03-08] MEDS: LACTOBACILLUS ACIDOPHILUS CAP (BACID) PO SCH ×2 (17:31→22:08)
[2020-03-08] MEDS: HumaLOG INSULIN (NovoLOG) PER UNIT SC SCH ×2 (17:32→23:16)
[2020-03-08 20:49] VITALS: BP 115/56
[2020-03-08] MEDS ORDERED: PERCOCET 5MG/325MG TAB PO PRN (22:00)
[2020-03-08] MEDS: LEVEMIR (INSULIN DETEMIR) 1 UNITS/0.01ML SC SCH (22:07)
[2020-03-08] MEDS: KETOCONAZOLE 2% CREAM TOP SCH (22:07)
[2020-03-08] MEDS: SENNA 8.6 MG TAB (SENOKOT) PO SCH (22:08)
[2020-03-08] MEDS: BRIMONIDINE 0.1% OPHTH SOLN 5 ML OS SCH (22:08)
[2020-03-08] MEDS: PANTOPRAZOLE 40MG TAB (PROTONIX) PO SCH (22:08)
[2020-03-08] MEDS: LATANOPROST 0.005% OPHTH SOLN 2.5 ML OS SCH (22:08)
[2020-03-08] MEDS: GABAPENTIN 300 MG CAP PO SCH (22:08)
[2020-03-09] VITALS (8 sets, daily range): BP systolic 101–156; BP diastolic 50–73
[2020-03-09] MEDS ORDERED: HumaLOG INSULIN (NovoLOG) PER UNIT SC ONE ×2 (00:45→02:30)
[2020-03-09] MEDS: HumaLOG INSULIN (NovoLOG) PER UNIT SC SCH ×4 (07:30→23:15)
[2020-03-09] MEDS: KETOCONAZOLE 2% CREAM TOP SCH ×2 (09:00→22:02)
[2020-03-09] MEDS ORDERED: TAMSULOSIN 0.4 MG CAP PO SCH (09:00)
[2020-03-09] MEDS: predniSONE 5 MG TAB PO SCH (09:06)
[2020-03-09] MEDS: ASPIRIN 81 MG ENTERIC TAB PO SCH (09:06)
[2020-03-09] MEDS: GABAPENTIN 300 MG CAP PO SCH ×2 (09:06→22:01)
[2020-03-09] MEDS: LACTOBACILLUS ACIDOPHILUS CAP (BACID) PO SCH ×4 (09:07→22:00)
[2020-03-09] MEDS: CitaloPRAM (CeleXA) 20 MG TAB PO SCH (09:07)
[2020-03-09] MEDS: ATORVASTATIN 20 MG TAB PO SCH (09:07)
[2020-03-09] MEDS: PANTOPRAZOLE 40MG TAB (PROTONIX) PO SCH ×2 (09:07→22:00)
[2020-03-09] MEDS: predniSONE 1 MG TAB PO SCH (09:07)
[2020-03-09] MEDS: CLOPIDOGREL 75 MG TAB PO SCH (09:07)
[2020-03-09] MEDS: BISACODYL 5 MG TAB PO SCH (09:07)
[2020-03-09] MEDS: FINASTERIDE 5 MG TAB PO SCH (09:08)
[2020-03-09] MEDS: ENOXAPARIN 40MG/0.4ML SYRINGE (J1650 PER 10MG) SC SCH (09:08)
[2020-03-09] MEDS: BRIMONIDINE 0.1% OPHTH SOLN 5 ML OS SCH ×2 (09:08→22:02)
--- NOTE | 2020-03-09 09:08 | IPNPDOC ---
Text Note Date of Service The patient was seen on 03/09/20. NOTE Vascular surgery. Dr. Boss. The patient is a 59-year-old patient with atherosclerosis of the [place] artery status post revascularization for nonhealing wounds of the right foot that has progressed to gangrene of the dorsal foot plantar foot heel and ankle, postop day #6 right BKA. The patient is now transferred to ARU. Would recommend to clean stump incision daily. Apply Xeroform along the incision, 4 x 4's, fluffs, Kerlix, Mac wrap. Continue to keep the knee as straight as possible. Okay to consult [employer], Bryan Zamora, for stump protector/knee immobilizer. PT/OT as per ARU. Encourage protein intake to help facilitate healing. Plan will be to remove ishaan 03/17/20 at postoperative day 14, remove sutures approximately one week later on 03/24/20. Continue to monitor. VS,Fishbone, I+O VS, Fishbone, I+O Vital Signs Date Time Temp Pulse Resp B/P (MAP) Pulse Ox O2 Delivery O2 Flow Rate FiO2 03/09/20 07:00 99.6 74 18 102/60 (74) 96 Room Air I&O- Last 24 Hours up to 6 AM 03/09/20 05:59 Intake Total 340 ml Output Total 1100 ml Balance -760 ml Florencia Dumont Mar 09, 2020 09:08
[2020-03-09 10:26] LABS: BASO % 0.3 % (0.0-1.0); EOS # 0.2 10^3/uL (0.0-0.5); EOS % 3.1 % (0.0-3.0); HEMATOCRIT 23.9 % (42.0-52.0); LYMPH # 1.2 10^3/uL (1.5-5.0); LYMPH % 16.4 % (24.0-44.0); MEAN CORPUSCULAR HEMOGLOBIN 30.8 pg (27.0-33.0); MEAN CORPUSCULAR HGB CONC 33.5 g/dl (32.0-36.5); MEAN CORPUSCULAR VOLUME 91.9 fl (80.0-96.0); MONO # 0.6 10^3/uL (0.0-0.8); MONO % 8.6 % (0.0-5.0); NEUTROPHILS # 5.1 10^3/uL (1.5-8.5); NEUTROPHILS % 70.9 % (36.0-66.0); PLATELET COUNT, AUTOMATED 233 10^3/uL (150-450); WHITE BLOOD COUNT 7.2 10^3/uL (4.0-10.0)
[2020-03-09 10:52] LABS: CALCIUM LEVEL 8.6 MG/DL (8.8-10.2); CREATININE FOR GFR 1.31 MG/DL (0.70-1.30); GLOMERULAR FILTRATION RATE 59.4 (>49); POTASSIUM SERUM 4.5 MEQ/L (3.5-5.1)
[2020-03-09] MEDS ORDERED: ACETAMINOPHEN TAB 650MG DOSE (2X325MG) PO ONE (12:00)
[2020-03-09] MEDS ORDERED: diphenhydrAMINE 25MG CAP PO ONE (12:00)
[2020-03-09] MEDS: ACETAMINOPHEN 500 MG TAB PO SCH ×2 (16:38→22:01)
[2020-03-09] MEDS: LevoFLOXacin 250 MG TABLET PO SCH (17:31)
[2020-03-09] MEDS: LEVEMIR (INSULIN DETEMIR) 1 UNITS/0.01ML SC SCH (22:00)
[2020-03-09] MEDS: SENNA 8.6 MG TAB (SENOKOT) PO SCH (22:00)
[2020-03-09] MEDS: LATANOPROST 0.005% OPHTH SOLN 2.5 ML OS SCH (22:02)
[2020-03-10 06:33] VITALS: BP 144/69
[2020-03-10 06:46] LABS: BASO % 0.4 % (0.0-1.0); EOS # 0.2 10^3/uL (0.0-0.5); EOS % 3.3 % (0.0-3.0); HEMATOCRIT 30.7 % (42.0-52.0); HEMOGLOBIN 9.9 g/dl (13.5-17.5); LYMPH # 1.3 10^3/uL (1.5-5.0); LYMPH % 18.2 % (24.0-44.0); MEAN CORPUSCULAR HEMOGLOBIN 29.5 pg (27.0-33.0); MEAN CORPUSCULAR HGB CONC 32.2 g/dl (32.0-36.5); MEAN CORPUSCULAR VOLUME 91.4 fl (80.0-96.0); MONO # 0.5 10^3/uL (0.0-0.8); NEUTROPHILS # 4.9 10^3/uL (1.5-8.5); NEUTROPHILS % 70.4 % (36.0-66.0); PLATELET COUNT, AUTOMATED 260 10^3/uL (150-450); RED BLOOD COUNT 3.36 10^6/uL (4.30-6.10)
[2020-03-10 07:03] LABS: BLOOD UREA NITROGEN 26 MG/DL (7-18); CALCIUM LEVEL 8.5 MG/DL (8.8-10.2); CARBON DIOXIDE LEVEL 30 MEQ/L (21-32); CHLORIDE LEVEL 101 MEQ/L (98-107); CREATININE FOR GFR 1.18 MG/DL (0.70-1.30); GLOMERULAR FILTRATION RATE > 60.0 (>49); GLUCOSE, FASTING 260 MG/DL (70-100); POTASSIUM SERUM 4.3 MEQ/L (3.5-5.1); SODIUM LEVEL 137 MEQ/L (136-145)
[2020-03-10] MEDS: CitaloPRAM (CeleXA) 20 MG TAB PO SCH (07:50)
[2020-03-10] MEDS: FINASTERIDE 5 MG TAB PO SCH (07:50)
[2020-03-10] MEDS: LACTOBACILLUS ACIDOPHILUS CAP (BACID) PO SCH ×4 (07:50→20:46)
[2020-03-10] MEDS: ASPIRIN 81 MG ENTERIC TAB PO SCH (07:50)
[2020-03-10] MEDS: ACETAMINOPHEN 500 MG TAB PO SCH ×3 (07:51→20:48)
[2020-03-10] MEDS: HumaLOG INSULIN (NovoLOG) PER UNIT SC SCH ×4 (07:51→20:49)
[2020-03-10] MEDS: CLOPIDOGREL 75 MG TAB PO SCH (07:51)
[2020-03-10] MEDS: PANTOPRAZOLE 40MG TAB (PROTONIX) PO SCH ×2 (07:51→20:47)
[2020-03-10] MEDS: ATORVASTATIN 20 MG TAB PO SCH (07:51)
[2020-03-10] MEDS: GABAPENTIN 300 MG CAP PO SCH ×2 (07:52→20:47)
[2020-03-10] MEDS: predniSONE 5 MG TAB PO SCH (07:52)
[2020-03-10] MEDS: predniSONE 1 MG TAB PO SCH (07:52)
[2020-03-10] MEDS: BISACODYL 5 MG TAB PO SCH (07:52)
[2020-03-10] MEDS: ENOXAPARIN 40MG/0.4ML SYRINGE (J1650 PER 10MG) SC SCH (07:53)
[2020-03-10] MEDS: BRIMONIDINE 0.1% OPHTH SOLN 5 ML OS SCH ×2 (07:53→20:50)
[2020-03-10] MEDS: KETOCONAZOLE 2% CREAM TOP SCH ×2 (07:54→20:50)
[2020-03-10 09:00] VITALS: BP 82/48
[2020-03-10] MEDS ORDERED: LEVEMIR (INSULIN DETEMIR) 1 UNITS/0.01ML SC SCH (09:00)
[2020-03-10 09:07] VITALS: BP 138/63
--- NOTE | 2020-03-10 10:43 | IPNPDOC ---
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 REVIEW OF SYSTEMS: The following is a completed review of systems and has been reviewed. Review of systems otherwise unremarkable. PAIN: Patient self reports right limb pain EYES: No recent vision changes EARS, NOSE, & THROAT: No throat pain, or dysphagia, or rhinorrhea CARDIOVASCULAR: Denies chest pain or palpitations PULMONARY:Denies shortness of breath GASTROINTESTINAL: denies constipation/diarrhea GENITOURINARY: +urinary retention (improving) MUSCULOSKELETAL: s/p right BKA NEUROLOGICAL:denies paresthesias HEMATOLOGICAL: +anemia SKIN: right BKA incision PSYCHIATRIC: Unremarkable All other review of systems found to be negative. PHYSICAL EXAMINATION: VITAL SIGNS: Please see below. GENERAL: Pleasant and cooperative. No acute distress. HEENT: PERRL. Extraocular movements intact. Clear conjunctiva CARDIOVASCULAR: Regular rate and rhythm. No murmurs, rubs, or gallops LUNGS: Clear to auscultation bilaterally. No wheezes. No rhonchi ABDOMEN: Soft, nontender, nondistended. Positive bowel sounds. Normal active bowel sounds NEUROLOGICAL: Alert and oriented times three. Cranial nerves II through XII grossly intact. Sensation grossly intact EXTREMITIES: 5/5 strength bilateral upper extremities. 5/5 bilat hip flexor and knee flexor/extension SKIN: right residual limb incision c/d/i, no hematoma, erythema, or drainage ASSESSMENT:59-year-old M with past medical history of DM1 and PVD who presents status post right BKA PLAN: 1. rehab- PT/OT advance mobility, ADLs, strengthen/stretch/maintain ROM, teach limb care/maintenance 2. Neuro- peripheral polyneuropathy in setting of DM and PVD contributing to mobility impairments- optimize glucose control 3. CArdiac/Vas- hx of PVD with left BKA in the past [place] 12220, c/u ASa and Plavix in addition to statin -vascular consulted, c/u wound care, monitor for infection, currently on Levaquin -orthostatics- suspect autonomic BP impairment due to longstanding DM contributing to orthostatics, will c/u to monitor with orthostatic vitals and consider Mestinon 4. Resp- encourage incentive spiormetry, monitor for infection 5. Heme- post-op anemia, s/p 1unit prbc 03-09-20 with Hgb today 9.9 patient reporting he feels much stronger 6. Endo- hx of DM1, c/u Insulin coverage-patient asked to bring in home insulin pump for better control as episodes of hyperglycemia coupled with hypoglycemia- will c/u to adjust levemir dosing -Adrenal insufficiency, c/u daily prednisone 7. GI ppx- protonix BID 8. DVT ppx- lovenox 9. Pain- tylenol and oxycodone, c/u Gabapentin 10. - hx of BPH on proscar, flomax added in acute side for retention, changed to qHS for daytime dizziness, yola d/c'd monitor PVRs 11. DIspo- TBD Allergies Coded Allergies: No Known Allergies (Unverified , 03/01/20) Vital Signs Vital Signs Date Time Temp Pulse Resp B/P (MAP) Pulse Ox O2 Delivery O2 Flow Rate FiO2 03/10/20 09:07 72 138/63 (88) 03/10/20 06:33 97.5 18 97 Room Air Laboratory Data CBC/BMP Laboratory Tests 03/10/20 06:00 Labs 24H Laboratory Tests 2 03/09/20 10:54: Bedside Glucose (Misc Panel) 415H 03/09/20 12:04: Bedside Glucose (Misc Panel) 409H 03/09/20 13:33: Bedside Glucose (Misc Panel) 327H 03/09/20 16:39: Bedside Glucose (Misc Panel) 384H 03/09/20 23:02: Bedside Glucose (Misc Panel) 417H 03/10/20 06:00: Immature Granulocyte % (Auto) 0.7, Neutrophils (%) (Auto) 70.4H, Lymphocytes (%) (Auto) 18.2L, Monocytes (%) (Auto) 7.0H, Eosinophils (%) (Auto) 3.3H, Basophils (%) (Auto) 0.4, Neutrophils # (Auto) 4.9, Lymphocytes # (Auto) 1.3L, Monocytes # (Auto) 0.5, Eosinophils # (Auto) 0.2, Basophils # (Auto) 0.0, Nucleated Red Blood Cells % (auto) 0.0, Anion Gap 6L, Glomerular Filtration Rate > 60.0, Calcium Level 8.5L 03/10/20 06:26: Bedside Glucose (Misc Panel) 289H Current Medications Current Medications Current Medications Medications (Trade) Dose Ordered Sig/Vladimir Route PRN Reason Start Time Stop Time Status Last Admin Dose Admin Acetaminophen (Tylenol Tab) 1,000 mg TID PO 03/08/20 16:00 03/08/20 18:49 DC 03/08/20 17:31 Acetaminophen (Tylenol Tab) 1,000 mg TID PO 03/09/20 16:00 03/10/20 07:51 Aspirin (Ecotrin) 81 mg DAILY PO 03/09/20 09:00 03/10/20 07:50 Atorvastatin Calcium (Lipitor) 40 mg DAILY PO 03/09/20 09:00 03/10/20 07:51 Bisacodyl (Dulcolax Tab) 5 mg DAILY PO 03/09/20 09:00 03/09/20 09:07 Brimonidine Tartrate (Alphagan P 0.1%) 1 drop BID OS 03/08/20 21:00 03/10/20 07:53 Citalopram Hydrobromide (CeleXA) 40 mg DAILY PO 03/09/20 09:00 03/10/20 07:50 Clopidogrel Bisulfate (PLAVix) 75 mg DAILY PO 03/09/20 09:00 03/10/20 07:51 Dextrose (Dextrose 50%) 25 ml ASDIRECTED PRN IV SEE LABEL COMMENTS 03/08/20 14:45 03/08/20 18:49 DC Docusate Sodium (Colace) 100 mg TID PO 03/08/20 16:00 03/08/20 18:49 DC 03/08/20 17:31 Enoxaparin Sodium (Lovenox) 40 mg DAILY SC 03/09/20 09:00 03/10/20 07:53 Finasteride (Proscar) 5 mg DAILY PO 03/09/20 09:00 03/10/20 07:50 Gabapentin (Neurontin) 300 mg BID PO 03/08/20 21:00 03/10/20 07:52 Glucagon (Glucagon) 1 mg ASDIRECTED PRN SC SEE LABEL COMMENTS 03/08/20 14:45 03/08/20 18:49 DC Glucose (Glucose) 16 GM ASDIRECTED PRN PO SEE LABEL COMMENTS 03/08/20 14:45 03/08/20 18:49 DC Home Med (Med Rec Complete!) ASDIRECTED XX 03/08/20 16:15 03/08/20 16:16 DC Insulin Detemir (Levemir Insulin) 10 units DAILY SC 03/10/20 09:00 03/10/20 07:52 Insulin Detemir (Levemir Insulin) 10 units QHS SC 03/08/20 21:00 03/10/20 09:44 DC 03/09/20 22:00 Insulin Detemir (Levemir Insulin) 14 units QHS SC 03/10/20 21:00 Insulin Human Lispro (HumaLOG INSULIN) SEE PROTOCOL TABLE AC SC 03/08/20 17:30 03/10/20 07:51 Insulin Human Lispro (HumaLOG INSULIN) SEE PROTOCOL TABLE QHS SC 03/08/20 21:00 03/09/20 23:15 Ketoconazole (Nizoral) APPLY SPARINGLY ... BID TOP 03/08/20 21:00 03/10/20 07:54 Lactobacillus Acidophilus (Bacid) 1 ea WMHS PO 03/08/20 18:00 03/10/20 07:50 Latanoprost (Xalatan 0.005% Op Soln) 1 drop QHS OS 03/08/20 21:00 03/09/20 22:02 Levofloxacin (Levaquin) 250 mg DAILY@06 PO 03/08/20 06:00 03/08/20 16:42 DC Levofloxacin (Levaquin) 250 mg DAILY@1800 PO 03/08/20 18:00 03/09/20 17:31 Oxycodone HCl (Roxicodone, Oxyir) 2.5 mg Q4HP PRN PO PAIN 03/09/20 11:00 Oxycodone HCl (Roxicodone, Oxyir) 5 mg Q4HP PRN PO PAIN 03/08/20 14:45 03/08/20 18:49 DC Oxycodone/ Acetaminophen (Percocet 5mg/ 325mg Tablet) 1 tab Q4HP PRN PO MODERATE PAIN (PS 5-7) 03/08/20 22:00 03/09/20 11:02 DC 03/09/20 09:43 Pantoprazole Sodium (Protonix) 40 mg BID PO 03/08/20 21:00 03/10/20 07:51 Prednisone (Deltasone) 3 mg DAILY PO 03/09/20 09:00 03/10/20 07:52 Prednisone (Deltasone) 5 mg DAILY PO 03/09/20 09:00 03/10/20 07:52 Senna (Senokot) 1 tab QHS PO 03/08/20 21:00 03/09/20 22:00 Sodium Biphosphate/ Sodium Phosphate (Fleet Enema) 1 ea DAILYPRN PRN DE CONSTIPATION 03/08/20 14:45 03/08/20 18:49 DC Tamsulosin HCl (Flomax) 0.4 mg DAILY PO 03/09/20 09:00 03/09/20 11:02 DC 03/09/20 09:06 Tamsulosin HCl (Flomax) 0.4 mg QHS PO 03/10/20 21:00 JORGE A RIOJAS MD Mar 10, 2020 10:42
[2020-03-10 14:00] VITALS: BP_SYST 132; BP_SYST 145; BP_DIAS 62; BP_DIAS 71
[2020-03-10 14:02] VITALS: BP_SYST 138; BP_SYST 175; BP_DIAS 74
[2020-03-10] MEDS: LevoFLOXacin 250 MG TABLET PO SCH (17:19)
[2020-03-10 20:00] VITALS: BP 147/71
[2020-03-10] MEDS: SENNA 8.6 MG TAB (SENOKOT) PO SCH (20:46)
[2020-03-10] MEDS: TAMSULOSIN 0.4 MG CAP PO SCH (20:47)
[2020-03-10] MEDS: LEVEMIR (INSULIN DETEMIR) 1 UNITS/0.01ML SC SCH (20:50)
[2020-03-10] MEDS: LATANOPROST 0.005% OPHTH SOLN 2.5 ML OS SCH (20:50)
[2020-03-11 01:00] VITALS: BP_SYST 113; BP_SYST 128; BP_SYST 88; BP_DIAS 55; BP_DIAS 56; BP_DIAS 60
[2020-03-11 04:55] VITALS: BP_SYST 106; BP_SYST 114; BP_SYST 156; BP_DIAS 44; BP_DIAS 69; BP_DIAS 82
[2020-03-11 04:56] VITALS: BP 156/69
[2020-03-11] MEDS: HumaLOG INSULIN (NovoLOG) PER UNIT SC SCH ×4 (08:44→21:00)
[2020-03-11] MEDS: ATORVASTATIN 20 MG TAB PO SCH (08:45)
[2020-03-11] MEDS: LEVEMIR (INSULIN DETEMIR) 1 UNITS/0.01ML SC SCH ×2 (08:45→21:00)
[2020-03-11] MEDS: FINASTERIDE 5 MG TAB PO SCH (08:45)
[2020-03-11] MEDS: ENOXAPARIN 40MG/0.4ML SYRINGE (J1650 PER 10MG) SC SCH (08:45)
[2020-03-11] MEDS: ASPIRIN 81 MG ENTERIC TAB PO SCH (08:45)
[2020-03-11] MEDS: CLOPIDOGREL 75 MG TAB PO SCH (08:46)
[2020-03-11] MEDS: predniSONE 1 MG TAB PO SCH (08:46)
[2020-03-11] MEDS: GABAPENTIN 300 MG CAP PO SCH (08:46)
[2020-03-11] MEDS: BISACODYL 5 MG TAB PO SCH (08:46)
[2020-03-11] MEDS: PANTOPRAZOLE 40MG TAB (PROTONIX) PO SCH ×2 (08:46→21:13)
[2020-03-11] MEDS: LACTOBACILLUS ACIDOPHILUS CAP (BACID) PO SCH ×4 (08:46→21:13)
[2020-03-11] MEDS: CitaloPRAM (CeleXA) 20 MG TAB PO SCH (08:47)
[2020-03-11] MEDS: ACETAMINOPHEN 500 MG TAB PO SCH ×3 (08:48→21:14)
[2020-03-11] MEDS: predniSONE 5 MG TAB PO SCH (08:48)
[2020-03-11] MEDS: BRIMONIDINE 0.1% OPHTH SOLN 5 ML OS SCH ×2 (08:49→21:14)
[2020-03-11] MEDS: KETOCONAZOLE 2% CREAM TOP SCH ×2 (08:49→21:16)
[2020-03-11] MEDS: LIDOCAINE 5% (LIDODERM) PATCH TD SCH (09:00)
--- NOTE | 2020-03-11 09:31 | IPNPDOC ---
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 No complaints of dizziness this morning. REVIEW OF SYSTEMS: The following is a completed review of systems and has been reviewed. Review of systems otherwise unremarkable. PAIN: Patient self reports right limb pain EYES: No recent vision changes EARS, NOSE, & THROAT: No throat pain, or dysphagia, or rhinorrhea CARDIOVASCULAR: Denies chest pain or palpitations PULMONARY:Denies shortness of breath GASTROINTESTINAL: denies constipation/diarrhea GENITOURINARY: +urinary retention (improving) MUSCULOSKELETAL: s/p right BKA NEUROLOGICAL:denies paresthesias HEMATOLOGICAL: +anemia SKIN: right BKA incision PSYCHIATRIC: Unremarkable All other review of systems found to be negative. PHYSICAL EXAMINATION: VITAL SIGNS: Please see below. GENERAL: Pleasant and cooperative. No acute distress. HEENT: PERRL. Extraocular movements intact. Clear conjunctiva CARDIOVASCULAR: Regular rate and rhythm. No murmurs, rubs, or gallops LUNGS: Clear to auscultation bilaterally. No wheezes. No rhonchi ABDOMEN: Soft, nontender, nondistended. Positive bowel sounds. Normal active bowel sounds NEUROLOGICAL: Alert and oriented times three. Cranial nerves II through XII g rossly intact. Sensation grossly intact EXTREMITIES: 5/5 strength bilateral upper extremities. 5/5 bilat hip flexor and knee flexor/extension SKIN: right residual limb incision c/d/i, no hematoma, erythema, or drainage ASSESSMENT:59-year-old M with past medical history of DM1 and PVD who presents status post right BKA PLAN: 1. rehab- PT/OT advance mobility, ADLs, strengthen/stretch/maintain ROM, teach limb care/maintenance 2. Neuro- peripheral polyneuropathy in setting of DM and PVD contributing to mob ility impairments- optimize glucose control 3. CArdiac/Vas- hx of PVD with left BKA in the past now s/p right BKA 12-220, c/u ASa and Plavix in addition to statin -vascular consulted, c/u wound care, monitor for infection, currently on Levaquin -orthostatics- suspect autonomic BP impairment due to longstanding DM contributing to orthostatics, will c/u to monitor with orthostatic vitals and consider Mestinon if does not continue to improve 4. Resp- encourage incentive spirometry, monitor for infection 5. Heme- post-op anemia, s/p 1unit prbc 03-09-20 6. Endo- hx of DM1, c/u Insulin coverage-patient asked to bring in home insulin pump for better control as episodes of hyperglycemia coupled with hypoglycemia- will c/u to adjust levemir dosing- improving -Adrenal insufficiency, c/u daily prednisone 7. GI ppx- protonix BID 8. DVT ppx- lovenox 9. Pain- tylenol and oxycodone, c/u Gabapentin 10. - hx of BPH on proscar, flomax added in acute side for retention, changed to qHS for daytime dizziness which is improving , yola d/c'd monitor PVRs 11. DIspo- 03-18-20 to home, progressing towards goals Allergies Coded Allergies: No Known Allergies (Unverified , 03/01/20) Vital Signs Vital Signs Date Time Temp Pulse Resp B/P (MAP) Pulse Ox O2 Delivery O2 Flow Rate FiO2 03/11/20 04:56 98.4 61 18 156/69 (98) 99 Room Air Laboratory Data Labs 24H Laboratory Tests 2 03/10/20 11:45: Bedside Glucose (Misc Panel) 363H 03/10/20 16:19: Bedside Glucose (Misc Panel) 288H 03/10/20 20:03: Bedside Glucose (Misc Panel) 301H 03/11/20 07:17: Bedside Glucose (Misc Panel) 231H Current Medications Current Medications Current Medications Medications (Trade) Dose Ordered Sig/Vladimir Route PRN Reason Start Time Stop Time Status Last Admin Dose Admin Acetaminophen (Tylenol Tab) 1,000 mg TID PO 03/08/20 16:00 03/08/20 18:49 DC 03/08/20 17:31 Acetaminophen (Tylenol Tab) 1,000 mg TID PO 03/09/20 16:00 03/11/20 08:48 Aspirin (Ecotrin) 81 mg DAILY PO 03/09/20 09:00 03/11/20 08:45 Atorvastatin Calcium (Lipitor) 40 mg DAILY PO 03/09/20 09:00 03/11/20 08:45 Bisacodyl (Dulcolax Tab) 5 mg DAILY PO 03/09/20 09:00 12/8/20 09:07 Brimonidine Tartrate (Alphagan P 0.1%) 1 drop BID OS 03/08/20 21:00 03/11/20 08:49 Citalopram Hydrobromide (CeleXA) 40 mg DAILY PO 03/09/20 09:00 03/11/20 08:47 Clopidogrel Bisulfate (PLAVix) 75 mg DAILY PO 03/09/20 09:00 03/11/20 08:46 Dextrose (Dextrose 50%) 25 ml ASDIRECTED PRN IV SEE LABEL COMMENTS 03/08/20 14:45 03/08/20 18:49 DC Docusate Sodium (Colace) 100 mg TID PO 03/08/20 16:00 03/08/20 18:49 DC 03/08/20 17:31 Enoxaparin Sodium (Lovenox) 40 mg DAILY SC 03/09/20 09:00 03/11/20 08:45 Finasteride (Proscar) 5 mg DAILY PO 03/09/20 09:00 03/11/20 08:45 Gabapentin (Neurontin) 300 mg BID PO 03/08/20 21:00 03/11/20 08:46 Glucagon (Glucagon) 1 mg ASDIRECTED PRN SC SEE LABEL COMMENTS 03/08/20 14:45 03/08/20 18:49 DC Glucose (Glucose) 16 GM ASDIRECTED PRN PO SEE LABEL COMMENTS 03/08/20 14:45 03/08/20 18:49 DC Home Med (Med Rec Complete!) ASDIRECTED XX 03/08/20 16:15 03/08/20 16:16 DC Insulin Detemir (Levemir Insulin) 10 units DAILY SC 03/10/20 09:00 03/10/20 17:34 DC 03/10/20 07:52 Insulin Detemir (Levemir Insulin) 10 units QHS SC 03/08/20 21:00 03/10/20 09:44 DC 03/09/20 22:00 Insulin Detemir (Levemir Insulin) 14 units DAILY SC 03/11/20 09:00 03/11/20 08:45 Insulin Detemir (Levemir Insulin) 14 units QHS SC 03/10/20 21:00 03/10/20 20:50 Insulin Human Lispro (HumaLOG INSULIN) SEE PROTOCOL TABLE AC SC 03/08/20 17:30 03/11/20 08:44 Insulin Human Lispro (HumaLOG INSULIN) SEE PROTOCOL TABLE QHS SC 03/08/20 21:00 03/10/20 20:49 Ketoconazole (Nizoral) APPLY SPARINGLY ... BID TOP 03/08/20 21:00 03/11/20 08:49 Lactobacillus Acidophilus (Bacid) 1 ea WMHS PO 03/08/20 18:00 03/11/20 08:46 Latanoprost (Xalatan 0.005% Op Soln) 1 drop QHS OS 03/08/20 21:00 03/10/20 20:50 Levofloxacin (Levaquin) 250 mg DAILY@06 PO 03/08/20 06:00 03/08/20 16:42 DC Levofloxacin (Levaquin) 250 mg DAILY@1800 PO 03/08/20 18:00 03/10/20 17:19 Oxycodone HCl (Roxicodone, Oxyir) 2.5 mg Q4HP PRN PO PAIN 03/09/20 11:00 Oxycodone HCl (Roxicodone, Oxyir) 5 mg Q4HP PRN PO PAIN 03/08/20 14:45 03/08/20 18:49 DC Oxycodone/ Acetaminophen (Percocet 5mg/ 325mg Tablet) 1 tab Q4HP PRN PO MODERATE PAIN (PS 5-7) 03/08/20 22:00 03/09/20 11:02 DC 03/09/20 09:43 Pantoprazole Sodium (Protonix) 40 mg BID PO 03/08/20 21:00 03/11/20 08:46 Prednisone (Deltasone) 3 mg DAILY PO 03/09/20 09:00 03/11/20 08:46 Prednisone (Deltasone) 5 mg DAILY PO 03/09/20 09:00 03/11/20 08:48 Senna (Senokot) 1 tab QHS PO 03/08/20 21:00 03/10/20 20:46 Sodium Biphosphate/ Sodium Phosphate (Fleet Enema) 1 ea DAILYPRN PRN NE CONSTIPATION 03/08/20 14:45 03/08/20 18:49 DC Tamsulosin HCl (Flomax) 0.4 mg DAILY PO 03/09/20 09:00 03/09/20 11:02 DC 03/09/20 09:06 Tamsulosin HCl (Flomax) 0.4 mg QHS PO 03/10/20 21:00 03/10/20 20:47 JORGE A RIOJAS MD Mar 11, 2020 09:31
[2020-03-11 14:00] VITALS: BP 110/53
[2020-03-11] MEDS: LevoFLOXacin 250 MG TABLET PO SCH (18:04)
[2020-03-11 20:00] VITALS: BP 101/53
[2020-03-11] MEDS: GABAPENTIN 100 MG CAP PO SCH (21:13)
[2020-03-11] MEDS: SENNA 8.6 MG TAB (SENOKOT) PO SCH (21:13)
[2020-03-11] MEDS: TAMSULOSIN 0.4 MG CAP PO SCH (21:13)
[2020-03-11] MEDS: LATANOPROST 0.005% OPHTH SOLN 2.5 ML OS SCH (21:14)
[2020-03-11] MEDS: **NOTE PATIENT COMMENT** MISC XX SCH (21:17)
[2020-03-12 06:00] VITALS: BP 115/57
[2020-03-12] MEDS: HumaLOG INSULIN (NovoLOG) PER UNIT SC SCH ×2 (07:30→12:00)
[2020-03-12 07:33] LABS: BASO % 0.4 % (0.0-1.0); EOS # 0.3 10^3/uL (0.0-0.5); EOS % 4.7 % (0.0-3.0); HEMATOCRIT 30.4 % (42.0-52.0); LYMPH # 1.3 10^3/uL (1.5-5.0); LYMPH % 17.6 % (24.0-44.0); MEAN CORPUSCULAR HEMOGLOBIN 30.8 pg (27.0-33.0); MEAN CORPUSCULAR HGB CONC 32.9 g/dl (32.0-36.5); MEAN CORPUSCULAR VOLUME 93.5 fl (80.0-96.0); MONO # 0.5 10^3/uL (0.0-0.8); MONO % 6.9 % (0.0-5.0); NEUTROPHILS % 69.7 % (36.0-66.0); PLATELET COUNT, AUTOMATED 305 10^3/uL (150-450); RED BLOOD COUNT 3.25 10^6/uL (4.30-6.10); WHITE BLOOD COUNT 7.2 10^3/uL (4.0-10.0)
[2020-03-12 08:04] LABS: BLOOD UREA NITROGEN 24 MG/DL (7-18); CALCIUM LEVEL 8.5 MG/DL (8.8-10.2); CARBON DIOXIDE LEVEL 29 MEQ/L (21-32); CHLORIDE LEVEL 104 MEQ/L (98-107); CREATININE FOR GFR 1.13 MG/DL (0.70-1.30); GLOMERULAR FILTRATION RATE > 60.0 (>49); GLUCOSE, FASTING 144 MG/DL (70-100); POTASSIUM SERUM 4.6 MEQ/L (3.5-5.1); SODIUM LEVEL 138 MEQ/L (136-145)
[2020-03-12] MEDS: LEVEMIR (INSULIN DETEMIR) 1 UNITS/0.01ML SC SCH (09:00)
[2020-03-12] MEDS: BISACODYL 5 MG TAB PO SCH (09:00)
[2020-03-12] MEDS: FINASTERIDE 5 MG TAB PO SCH (09:41)
[2020-03-12] MEDS: GABAPENTIN 100 MG CAP PO SCH ×2 (09:41→21:19)
[2020-03-12] MEDS: CLOPIDOGREL 75 MG TAB PO SCH (09:42)
[2020-03-12] MEDS: PANTOPRAZOLE 40MG TAB (PROTONIX) PO SCH ×2 (09:42→21:19)
[2020-03-12] MEDS: ASPIRIN 81 MG ENTERIC TAB PO SCH (09:42)
[2020-03-12] MEDS: predniSONE 5 MG TAB PO SCH (09:42)
[2020-03-12] MEDS: LACTOBACILLUS ACIDOPHILUS CAP (BACID) PO SCH ×4 (09:42→21:19)
[2020-03-12] MEDS: CitaloPRAM (CeleXA) 20 MG TAB PO SCH (09:43)
[2020-03-12] MEDS: ENOXAPARIN 40MG/0.4ML SYRINGE (J1650 PER 10MG) SC SCH (09:43)
[2020-03-12] MEDS: ACETAMINOPHEN 500 MG TAB PO SCH ×3 (09:44→21:19)
[2020-03-12] MEDS: ATORVASTATIN 20 MG TAB PO SCH (09:44)
[2020-03-12] MEDS: BRIMONIDINE 0.1% OPHTH SOLN 5 ML OS SCH ×2 (09:45→21:20)
[2020-03-12] MEDS: predniSONE 1 MG TAB PO SCH (09:45)
[2020-03-12] MEDS: KETOCONAZOLE 2% CREAM TOP SCH ×2 (09:46→21:20)
[2020-03-12] MEDS: LIDOCAINE 5% (LIDODERM) PATCH TD SCH (09:53)
[2020-03-12 14:00] VITALS: BP_SYST 106; BP_SYST 114; BP_SYST 129; BP_DIAS 46; BP_DIAS 55; BP_DIAS 60
[2020-03-12] MEDS: LevoFLOXacin 250 MG TABLET PO SCH (17:46)
[2020-03-12 20:15] VITALS: BP_SYST 101; BP_SYST 150; BP_DIAS 61; BP_DIAS 73
[2020-03-12] MEDS ORDERED: LEVEMIR (INSULIN DETEMIR) 1 UNITS/0.01ML SC SCH (21:00)
[2020-03-12] MEDS ORDERED: ENTER DRUG NAME HERE (PATIENT'S OWN MED) SQ SCH (21:00)
[2020-03-12] MEDS: **NOTE PATIENT COMMENT** MISC XX SCH (21:00)
[2020-03-12] MEDS: TAMSULOSIN 0.4 MG CAP PO SCH (21:19)
[2020-03-12] MEDS: SENNA 8.6 MG TAB (SENOKOT) PO SCH (21:19)
[2020-03-12] MEDS: LATANOPROST 0.005% OPHTH SOLN 2.5 ML OS SCH (21:20)
[2020-03-13] MEDS ORDERED: HumaLOG INSULIN (NovoLOG) PER UNIT SC PRN (01:30)
[2020-03-13 06:12] VITALS: BP 123/53
[2020-03-13] MEDS: CLOPIDOGREL 75 MG TAB PO SCH (08:18)
[2020-03-13] MEDS: ATORVASTATIN 20 MG TAB PO SCH (08:18)
[2020-03-13] MEDS: GABAPENTIN 100 MG CAP PO SCH ×2 (08:18→21:14)
[2020-03-13] MEDS: predniSONE 1 MG TAB PO SCH (08:18)
[2020-03-13] MEDS: ACETAMINOPHEN 500 MG TAB PO SCH ×3 (08:18→21:16)
[2020-03-13] MEDS: PANTOPRAZOLE 40MG TAB (PROTONIX) PO SCH ×2 (08:18→21:14)
[2020-03-13] MEDS: predniSONE 5 MG TAB PO SCH (08:18)
[2020-03-13] MEDS: FINASTERIDE 5 MG TAB PO SCH (08:18)
[2020-03-13] MEDS: LACTOBACILLUS ACIDOPHILUS CAP (BACID) PO SCH ×4 (08:18→21:14)
[2020-03-13] MEDS: ASPIRIN 81 MG ENTERIC TAB PO SCH (08:18)
[2020-03-13] MEDS: oxyCODONE 5MG TAB PO PRN (08:19)
[2020-03-13] MEDS: LIDOCAINE 5% (LIDODERM) PATCH TD SCH (08:19)
[2020-03-13] MEDS: CitaloPRAM (CeleXA) 20 MG TAB PO SCH (08:19)
[2020-03-13] MEDS: ENOXAPARIN 40MG/0.4ML SYRINGE (J1650 PER 10MG) SC SCH (08:44)
[2020-03-13] MEDS: KETOCONAZOLE 2% CREAM TOP SCH ×2 (08:44→21:17)
[2020-03-13] MEDS: BRIMONIDINE 0.1% OPHTH SOLN 5 ML OS SCH ×2 (08:45→21:17)
[2020-03-13] MEDS: BISACODYL 5 MG TAB PO SCH (09:00)
--- NOTE | 2020-03-13 11:17 | IPNPDOC ---
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 He reports he is in good spirits and that the lidoderm patch on his neck is helping. REVIEW OF SYSTEMS: The following is a completed review of systems and has been reviewed. Review of systems otherwise unremarkable. PAIN: Patient self reports right limb pain EYES: No recent vision changes EARS, NOSE, & THROAT: No throat pain, or dysphagia, or rhinorrhea CARDIOVASCULAR: Denies chest pain or palpitations PULMONARY:Denies shortness of breath GASTROINTESTINAL: denies constipation/diarrhea GENITOURINARY: +urinary retention (improving) MUSCULOSKELETAL: s/p right BKA NEUROLOGICAL:denies paresthesias HEMATOLOGICAL: +anemia SKIN: right BKA incision PSYCHIATRIC: Unremarkable All other review of systems found to be negative. PHYSICAL EXAMINATION: VITAL SIGNS: Please see below. GENERAL: Pleasant and cooperative. No acute distress. HEENT: PERRL. Extraocular movements intact. Clear conjunctiva CARDIOVASCULAR: Regular rate and rhythm. No murmurs, rubs, or gallops LUNGS: Clear to auscultation bilaterally. No wheezes. No rhonchi ABDOMEN: Soft, nontender, nondistended. Positive bowel sounds. Normal active bowel sounds NEUROLOGICAL: Alert and oriented times three. Cranial nerves II through XII grossly intact. Sensation grossly intact EXTREMITIES: 5/5 strength bilateral upper extremities. 5/5 bilat hip flexor and knee flexor/extension SKIN: right residual limb incision c/d/i, no hematoma, erythema, or drainage ASSESSMENT:59-year-old M with past medical history of DM1 and PVD who presents status post right BKA PLAN: 1. rehab- PT/OT advance mobility, ADLs, strengthen/stretch/maintain ROM, teach limb care/maintenance 2. Neuro- peripheral polyneuropathy in setting of DM and PVD contributing to mobility impairments- optimize glucose control 3. CArdiac/Vas- hx of PVD with left BKA in the past now s/p right BKA 03-03-20, c/u ASa and Plavix in addition to statin -vascular consulted, c/u wound care, monitor for infection, currently on Levaquin -orthostatics- suspect autonomic BP impairment due to longstanding DM contributing to orthostatics, will c/u to monitor with orthostatic vitals and consider Mestinon if does not continue to improve 4. Resp- encourage incentive spirometry, monitor for infection 5. Heme- post-op anemia, s/p 1unit prbc 03-09-20 6. Endo- hx of DM1, c/u Insulin coverage-patient using his own pump, recording gluocse levels q4h for charting, hypoglycemic protocol in place -Adrenal insufficiency, c/u daily prednisone 7. GI ppx- protonix BID 8. DVT ppx- lovenox 9. Pain- tylenol and oxycodone, c/u Gabapentin (dose lowered to 100mg BID) -lidoderm to neck for cervical pain 10. - hx of BPH on proscar, flomax added in acute side for retention, changed to qHS for daytime dizziness which is improving , yola d/c'd monitor PVRs- voidig well 11. DIspo- 03-18-20 to home, progressing towards goal Allergies Coded Allergies: No Known Allergies (Unverified , 03/01/20) Vital Signs Vital Signs Date Time Temp Pulse Resp B/P (MAP) Pulse Ox O2 Delivery O2 Flow Rate FiO2 03/13/20 09:10 18 03/13/20 06:12 98.3 82 123/53 (76) 98 Room Air Current Medications Current Medications Current Medications Medications (Trade) Dose Ordered Sig/Vladimir Route PRN Reason Start Time Stop Time Status Last Admin Dose Admin Acetaminophen (Tylenol Tab) 1,000 mg TID PO 03/08/20 16:00 03/08/20 18:49 DC 03/08/20 17:31 Acetaminophen (Tylenol Tab) 1,000 mg TID PO 03/09/20 16:00 03/13/20 08:18 Aspirin (Ecotrin) 81 mg DAILY PO 03/09/20 09:00 03/13/20 08:18 Atorvastatin Calcium (Lipitor) 40 mg DAILY PO 03/09/20 09:00 03/13/20 08:18 Bisacodyl (Dulcolax Tab) 5 mg DAILY PO 03/09/20 09:00 03/09/20 09:07 Brimonidine Tartrate (Alphagan P 0.1%) 1 drop BID OS 03/08/20 21:00 03/13/20 08:45 Citalopram Hydrobromide (CeleXA) 40 mg DAILY PO 03/09/20 09:00 03/13/20 08:19 Clopidogrel Bisulfate (PLAVix) 75 mg DAILY PO 03/09/20 09:00 03/13/20 08:18 Dextrose (Dextrose 50%) 25 ml ASDIRECTED PRN IV SEE LABEL COMMENTS 03/08/20 14:45 03/08/20 18:49 DC Docusate Sodium (Colace) 100 mg TID PO 03/08/20 16:00 03/08/20 18:49 DC 03/08/20 17:31 Enoxaparin Sodium (Lovenox) 40 mg DAILY SC 03/09/20 09:00 03/13/20 08:44 Finasteride (Proscar) 5 mg DAILY PO 03/09/20 09:00 03/13/20 08:18 Gabapentin (Neurontin) 100 mg BID PO 03/11/20 21:00 03/13/20 08:18 Gabapentin (Neurontin) 300 mg BID PO 03/08/20 21:00 03/11/20 11:40 DC 03/11/20 08:46 Glucagon (Glucagon) 1 mg ASDIRECTED PRN SC SEE LABEL COMMENTS 03/08/20 14:45 03/08/20 18:49 DC Glucose (Glucose) 16 GM ASDIRECTED PRN PO SEE LABEL COMMENTS 03/08/20 14:45 03/08/20 18:49 DC Home Med (Med Rec Complete!) ASDIRECTED XX 03/08/20 16:15 03/08/20 16:16 DC Insulin Detemir (Levemir Insulin) 8 units QHS SC 03/12/20 21:00 03/12/20 16:27 DC Insulin Detemir (Levemir Insulin) 10 units DAILY SC 03/10/20 09:00 03/10/20 17:34 DC 03/10/20 07:52 Insulin Detemir (Levemir Insulin) 10 units QHS SC 03/08/20 21:00 03/10/20 09:44 DC 03/09/20 22:00 Insulin Detemir (Levemir Insulin) 14 units DAILY SC 03/11/20 09:00 03/12/20 16:27 DC 03/11/20 08:45 Insulin Detemir (Levemir Insulin) 14 units QHS SC 03/10/20 21:00 03/12/20 08:51 DC 03/10/20 20:50 Insulin Human Lispro (HumaLOG INSULIN) SEE PROTOCOL TABLE AC SC 03/08/20 17:30 03/12/20 16:27 DC 03/11/20 18:06 Insulin Human Lispro (HumaLOG INSULIN) SEE PROTOCOL TABLE Q SC 03/08/20 21:00 03/12/20 16:27 DC 03/10/20 20:49 Insulin Human Lispro (HumaLOG INSULIN) To use for pt. own insu... ASDIRECTED PRN SC SEE LABEL COMMENTS 03/13/20 01:30 Ketoconazole (Nizoral) APPLY SPARINGLY ... BID TOP 03/08/20 21:00 03/12/20 21:20 Lactobacillus Acidophilus (Bacid) 1 ea WMHS PO 03/08/20 18:00 03/13/20 08:18 Latanoprost (Xalatan 0.005% Op Soln) 1 drop QHS OS 03/08/20 21:00 03/12/20 21:20 Levofloxacin (Levaquin) 250 mg DAILY@06 PO 03/08/20 06:00 03/08/20 16:42 DC Levofloxacin (Levaquin) 250 mg DAILY@1800 PO 03/08/20 18:00 03/12/20 17:46 Lidocaine (Lidoderm Patch) 1 patch DAILY TD 03/11/20 09:00 03/13/20 08:19 Non-Formulary Medication ( See Comment Field Below ) REMOVE LIDODERM PATCH DAILY@21 XX 03/11/20 21:00 03/11/20 21:17 Oxycodone HCl (Roxicodone, Oxyir) 2.5 mg Q4HP PRN PO PAIN 03/09/20 11:00 03/13/20 08:19 Oxycodone HCl (Roxicodone, Oxyir) 5 mg Q4HP PRN PO PAIN 03/08/20 14:45 03/08/20 18:49 DC Oxycodone/ Acetaminophen (Percocet 5mg/ 325mg Tablet) 1 tab Q4HP PRN PO MODERATE PAIN (PS 5-7) 03/08/20 22:00 03/09/20 11:02 DC 03/09/20 09:43 Pantoprazole Sodium (Protonix) 40 mg BID PO 03/08/20 21:00 03/13/20 08:18 Patient Own Medication (Patient'S Own Med) Insulin Apart (Noval... 6XD SQ 03/12/20 21:00 03/12/20 20:35 DC Prednisone (Deltasone) 3 mg DAILY PO 03/09/20 09:00 03/13/20 08:18 Prednisone (Deltasone) 5 mg DAILY PO 03/09/20 09:00 03/13/20 08:18 Senna (Senokot) 1 tab QHS PO 03/08/20 21:00 03/12/20 21:19 Sodium Biphosphate/ Sodium Phosphate (Fleet Enema) 1 ea DAILYPRN PRN ND CONSTIPATION 03/08/20 14:45 03/08/20 18:49 DC Tamsulosin HCl (Flomax) 0.4 mg DAILY PO 03/09/20 09:00 03/09/20 11:02 DC 03/09/20 09:06 Tamsulosin HCl (Flomax) 0.4 mg QHS PO 03/10/20 21:00 03/12/20 21:19 JORGE A RIOJAS MD Mar 13, 2020 11:17
[2020-03-13 14:00] VITALS: BP 119/56
[2020-03-13 14:48] VITALS: BP_SYST 100; BP_SYST 129; BP_SYST 131; BP_DIAS 46; BP_DIAS 60; BP_DIAS 65
[2020-03-13] MEDS: LevoFLOXacin 250 MG TABLET PO SCH (17:12)
[2020-03-13 20:15] VITALS: BP 118/79
[2020-03-13] MEDS: TAMSULOSIN 0.4 MG CAP PO SCH (21:14)
[2020-03-13] MEDS: SENNA 8.6 MG TAB (SENOKOT) PO SCH (21:16)
[2020-03-13] MEDS: LATANOPROST 0.005% OPHTH SOLN 2.5 ML OS SCH (21:17)
[2020-03-13] MEDS: **NOTE PATIENT COMMENT** MISC XX SCH (21:18)
[2020-03-14] MEDS: oxyCODONE 5MG TAB PO PRN (04:34)
[2020-03-14 06:00] VITALS: BP 136/63
[2020-03-14] MEDS: predniSONE 1 MG TAB PO SCH (08:11)
[2020-03-14] MEDS: ACETAMINOPHEN 500 MG TAB PO SCH ×3 (08:11→21:30)
[2020-03-14] MEDS: CitaloPRAM (CeleXA) 20 MG TAB PO SCH (08:11)
[2020-03-14] MEDS: CLOPIDOGREL 75 MG TAB PO SCH (08:11)
[2020-03-14] MEDS: PANTOPRAZOLE 40MG TAB (PROTONIX) PO SCH ×2 (08:11→21:29)
[2020-03-14] MEDS: GABAPENTIN 100 MG CAP PO SCH ×2 (08:11→21:29)
[2020-03-14] MEDS: ASPIRIN 81 MG ENTERIC TAB PO SCH (08:12)
[2020-03-14] MEDS: predniSONE 5 MG TAB PO SCH (08:12)
[2020-03-14] MEDS: LACTOBACILLUS ACIDOPHILUS CAP (BACID) PO SCH ×4 (08:12→21:29)
[2020-03-14] MEDS: ATORVASTATIN 20 MG TAB PO SCH (08:12)
[2020-03-14] MEDS: BISACODYL 5 MG TAB PO SCH (08:12)
[2020-03-14] MEDS: FINASTERIDE 5 MG TAB PO SCH (08:13)
[2020-03-14] MEDS: LIDOCAINE 5% (LIDODERM) PATCH TD SCH (08:13)
[2020-03-14] MEDS: ENOXAPARIN 40MG/0.4ML SYRINGE (J1650 PER 10MG) SC SCH (08:13)
[2020-03-14] MEDS: BRIMONIDINE 0.1% OPHTH SOLN 5 ML OS SCH ×2 (08:13→21:31)
[2020-03-14] MEDS: KETOCONAZOLE 2% CREAM TOP SCH ×2 (08:14→21:31)
[2020-03-14 14:00] VITALS: BP 114/58
[2020-03-14] MEDS: LevoFLOXacin 250 MG TABLET PO SCH (17:54)
[2020-03-14 20:00] VITALS: BP_SYST 58; BP_SYST 84; BP_SYST 87; BP_DIAS 25; BP_DIAS 48; BP_DIAS 53
[2020-03-14] MEDS: TAMSULOSIN 0.4 MG CAP PO SCH (21:29)
[2020-03-14] MEDS: SENNA 8.6 MG TAB (SENOKOT) PO SCH (21:29)
[2020-03-14] MEDS: **NOTE PATIENT COMMENT** MISC XX SCH (21:30)
[2020-03-14] MEDS: LATANOPROST 0.005% OPHTH SOLN 2.5 ML OS SCH (21:31)
[2020-03-15 05:52] VITALS: BP_SYST 105; BP_SYST 108; BP_SYST 137; BP_DIAS 44; BP_DIAS 57; BP_DIAS 63
[2020-03-15] MEDS: ACETAMINOPHEN 500 MG TAB PO SCH ×3 (06:29→22:14)
[2020-03-15 08:08] LABS: BASO % 0.4 % (0.0-1.0); EOS # 0.2 10^3/uL (0.0-0.5); EOS % 2.6 % (0.0-3.0); HEMATOCRIT 31.1 % (42.0-52.0); HEMOGLOBIN 9.7 g/dl (13.5-17.5); LYMPH # 1.8 10^3/uL (1.5-5.0); LYMPH % 25.4 % (24.0-44.0); MEAN CORPUSCULAR HGB CONC 31.2 g/dl (32.0-36.5); MEAN CORPUSCULAR VOLUME 93.1 fl (80.0-96.0); MONO # 0.5 10^3/uL (0.0-0.8); MONO % 7.7 % (0.0-5.0); NEUTROPHILS # 4.4 10^3/uL (1.5-8.5); NEUTROPHILS % 63.2 % (36.0-66.0); PLATELET COUNT, AUTOMATED 422 10^3/uL (150-450); RED BLOOD COUNT 3.34 10^6/uL (4.30-6.10)
[2020-03-15 08:31] LABS: BLOOD UREA NITROGEN 27 MG/DL (7-18); CALCIUM LEVEL 8.7 MG/DL (8.8-10.2); CARBON DIOXIDE LEVEL 24 MEQ/L (21-32); CHLORIDE LEVEL 104 MEQ/L (98-107); CREATININE FOR GFR 1.26 MG/DL (0.70-1.30); GLOMERULAR FILTRATION RATE > 60.0 (>49); GLUCOSE, FASTING 231 MG/DL (70-100); POTASSIUM SERUM 5.2 MEQ/L (3.5-5.1); SODIUM LEVEL 137 MEQ/L (136-145)
[2020-03-15] MEDS: oxyCODONE 5MG TAB PO PRN (08:38)
[2020-03-15] MEDS: predniSONE 5 MG TAB PO SCH (08:40)
[2020-03-15] MEDS: ATORVASTATIN 20 MG TAB PO SCH (08:40)
[2020-03-15] MEDS: GABAPENTIN 100 MG CAP PO SCH ×2 (08:41→22:14)
[2020-03-15] MEDS: CLOPIDOGREL 75 MG TAB PO SCH (08:41)
[2020-03-15] MEDS: predniSONE 1 MG TAB PO SCH (08:41)
[2020-03-15] MEDS: ASPIRIN 81 MG ENTERIC TAB PO SCH (08:41)
[2020-03-15] MEDS: CitaloPRAM (CeleXA) 20 MG TAB PO SCH (08:41)
[2020-03-15] MEDS: ENOXAPARIN 40MG/0.4ML SYRINGE (J1650 PER 10MG) SC SCH (08:41)
[2020-03-15] MEDS: LACTOBACILLUS ACIDOPHILUS CAP (BACID) PO SCH ×4 (08:42→22:13)
[2020-03-15] MEDS: BISACODYL 5 MG TAB PO SCH (08:42)
[2020-03-15] MEDS: LIDOCAINE 5% (LIDODERM) PATCH TD SCH (08:42)
[2020-03-15] MEDS: FINASTERIDE 5 MG TAB PO SCH (08:42)
[2020-03-15] MEDS: PANTOPRAZOLE 40MG TAB (PROTONIX) PO SCH ×2 (08:42→22:14)
[2020-03-15] MEDS: BRIMONIDINE 0.1% OPHTH SOLN 5 ML OS SCH ×2 (08:46→22:15)
[2020-03-15] MEDS: KETOCONAZOLE 2% CREAM TOP SCH ×2 (08:48→22:15)
[2020-03-15] MEDS ORDERED: SOD POLYSTYRENE SULFONATE SUSP 15 GM/60 ML UD PO ONE (11:00)
--- NOTE | 2020-03-15 12:49 | IPNPDOC ---
PM&R Progress Note DATE OF SERVICE: Mar 15, 2020 Ambulance Officer Progress Note Subjective: Patient reporting his right residual limb is very sore since wearing the knee immobilizer over the weekend. He denies fevers or chills. He is still occasion ally dizzy when his blood pressure drops. REVIEW OF SYSTEMS: The following is a completed review of systems and has been reviewed. Review of systems otherwise unremarkable. PAIN: Patient self reports right limb pain EYES: No recent vision changes EARS, NOSE, & THROAT: No throat pain, or dysphagia, or rhinorrhea CARDIOVASCULAR: Denies chest pain or palpitations PULMONARY:Denies shortness of breath GASTROINTESTINAL: denies constipation/diarrhea GENITOURINARY: +urinary retention (improving) MUSCULOSKELETAL: s/p right BKA NEUROLOGICAL:denies paresthesias HEMATOLOGICAL: +anemia SKIN: right BKA incision PSYCHIATRIC: Unremarkable All other review of systems found to be negative. PHYSICAL EXAMINATION: VITAL SIGNS: Please see below. GENERAL: Pleasant and cooperative. No acute distress. HEENT: PERRL. Extraocular movements intact. Clear conjunctiva CARDIOVASCULAR: Regular rate and rhythm. No murmurs, rubs, or gallops LUNGS: Clear to auscultation bilaterally. No wheezes. No rhonchi ABDOMEN: Soft, nontender, nondistended. Positive bowel sounds. Normal active bowel sounds NEUROLOGICAL: Alert and oriented times three. Cranial nerves II through XII grossly intact. Sensation grossly intact EXTREMITIES: 5/5 strength bilateral upper extremities. 5/5 bilat hip flexor and knee flexor/extension SKIN: right residual limb incision c/d/i, no hematoma, +pretibial erythema and mild stump erythema (new) ASSESSMENT:59-year-old M with past medical history of DM1 and PVD who presents status post right BKA PLAN: 1. rehab- PT/OT advance mobility, ADLs, strengthen/stretch/maintain ROM, teach limb care/maintenance 2. Neuro- peripheral polyneuropathy in setting of DM and PVD contributing to mob ility impairments- optimize glucose control 3. CArdiac/Vas- hx of PVD with left BKA in the past now s/p right BKA 03-03-20, c/u ASa and Plavix in addition to statin -vascular consulted, c/u wound care, monitor for infection, will change abx to doxycycline to cover MRSA, patient instructed NOT to wear knee immobilizer as causing irritation, concern for cellulitis -orthostatics- suspect autonomic BP impairment due to longstanding DM contributing to orthostatics, will start Mestinon 15mg TID and increase to 30mg TID if needed 4. Resp- encourage incentive spirometry, monitor for infection 5. Heme- post-op anemia, s/p 1unit prbc 03-09-20 6. Endo- hx of DM1, c/u Insulin coverage-patient using his own pump, recording gluocse levels q4h for charting, hypoglycemic protocol in place -Adrenal insufficiency, c/u daily prednisone 7. GI ppx- protonix BID 8. DVT ppx- lovenox 9. Pain- tylenol and oxycodone, c/u Gabapentin (dose lowered to 100mg BID) -lidoderm to neck for cervical pain 10. - hx of BPH on proscar, flomax added in acute side for retention, changed to qHS for daytime dizziness aceves d/c'd monitor PVRs- voidig well 11. DIspo- will need time beyond 03-18-20 as suspect limb cellulitis and persistent orthostatics, will c/u to work on his medical needs Allergies Coded Allergies: No Known Allergies (Unverified , 03/01/20) Vital Signs Vital Signs Date Time Temp Pulse Resp B/P (MAP) Pulse Ox O2 Delivery O2 Flow Rate FiO2 03/15/20 09:10 18 Room Air 03/15/20 05:52 97.8 80 137/63 (87) 98 Laboratory Data CBC/BMP Laboratory Tests 03/15/20 06:33 Labs 24H Laboratory Tests 2 03/15/20 05:28: Bedside Glucose (Misc Panel) 170H 03/15/20 06:33: Immature Granulocyte % (Auto) 0.7, Neutrophils (%) (Auto) 63.2, Lymphocytes (%) (Auto) 25.4, Monocytes (%) (Auto) 7.7H, Eosinophils (%) (Auto) 2.6, Basophils (%) (Auto) 0.4, Neutrophils # (Auto) 4.4, Lymphocytes # (Auto) 1.8, Monocytes # (Auto) 0.5, Eosinophils # (Auto) 0.2, Basophils # (Auto) 0.0, Nucleated Red Blood Cells % (auto) 0.0, Anion Gap 9, Glomerular Filtration Rate > 60.0, Calcium Level 8.7L Current Medications Current Medications Current Medications Medications (Trade) Dose Ordered Sig/Vladimir Route PRN Reason Start Time Stop Time Status Last Admin Dose Admin Acetaminophen (Tylenol Tab) 1,000 mg TID PO 03/08/20 16:00 03/08/20 18:49 DC 03/08/20 17:31 Acetaminophen (Tylenol Tab) 1,000 mg TID PO 03/09/20 16:00 03/15/20 06:29 Aspirin (Ecotrin) 81 mg DAILY PO 03/09/20 09:00 03/15/20 08:41 Atorvastatin Calcium (Lipitor) 40 mg DAILY PO 03/09/20 09:00 03/15/20 08:40 Bisacodyl (Dulcolax Tab) 5 mg DAILY PO 03/09/20 09:00 03/15/20 08:42 Brimonidine Tartrate (Alphagan P 0.1%) 1 drop BID OS 03/08/20 21:00 03/15/20 08:46 Citalopram Hydrobromide (CeleXA) 40 mg DAILY PO 03/09/20 09:00 03/15/20 08:41 Clopidogrel Bisulfate (PLAVix) 75 mg DAILY PO 03/09/20 09:00 03/15/20 08:41 Dextrose (Dextrose 50%) 25 ml ASDIRECTED PRN IV SEE LABEL COMMENTS 03/08/20 14:45 03/08/20 18:49 DC Docusate Sodium (Colace) 100 mg TID PO 03/08/20 16:00 03/08/20 18:49 DC 03/08/20 17:31 Enoxaparin Sodium (Lovenox) 40 mg DAILY SC 03/09/20 09:00 03/15/20 08:41 Finasteride (Proscar) 5 mg DAILY PO 03/09/20 09:00 03/15/20 08:42 Gabapentin (Neurontin) 100 mg BID PO 03/11/20 21:00 03/15/20 08:41 Gabapentin (Neurontin) 300 mg BID PO 03/08/20 21:00 03/11/20 11:40 DC 03/11/20 08:46 Glucagon (Glucagon) 1 mg ASDIRECTED PRN SC SEE LABEL COMMENTS 03/08/20 14:45 03/08/20 18:49 DC Glucose (Glucose) 16 GM ASDIRECTED PRN PO SEE LABEL COMMENTS 03/08/20 14:45 03/08/20 18:49 DC Home Med (Med Rec Complete!) ASDIRECTED XX 03/08/20 16:15 03/08/20 16:16 DC Insulin Detemir (Levemir Insulin) 8 units QHS SC 03/12/20 21:00 03/12/20 16:27 DC Insulin Detemir (Levemir Insulin) 10 units DAILY MI 03/10/20 09:00 03/10/20 17:34 DC 03/10/20 07:52 Insulin Detemir (Levemir Insulin) 10 units QHS SC 03/08/20 21:00 03/10/20 09:44 DC 03/09/20 22:00 Insulin Detemir (Levemir Insulin) 14 units DAILY MI 03/11/20 09:00 03/12/20 16:27 DC 03/11/20 08:45 Insulin Detemir (Levemir Insulin) 14 units QHS MI 03/10/20 21:00 03/12/20 08:51 DC 03/10/20 20:50 Insulin Human Lispro (HumaLOG INSULIN) SEE PROTOCOL TABLE AC MI 03/08/20 17:30 03/12/20 16:27 DC 03/11/20 18:06 Insulin Human Lispro (HumaLOG INSULIN) SEE PROTOCOL TABLE QHS MI 03/08/20 21:00 03/12/20 16:27 DC 03/10/20 20:49 Insulin Human Lispro (HumaLOG INSULIN) To use for pt. own insu... ASDIRECTED PRN SC SEE LABEL COMMENTS 03/13/20 01:30 Ketoconazole (Nizoral) APPLY SPARINGLY ... BID TOP 03/08/20 21:00 03/15/20 08:48 Lactobacillus Acidophilus (Bacid) 1 ea WMHS PO 03/08/20 18:00 03/15/20 12:39 Latanoprost (Xalatan 0.005% Op Soln) 1 drop QHS OS 03/08/20 21:00 03/14/20 21:31 Levofloxacin (Levaquin) 250 mg DAILY@06 PO 03/08/20 06:00 03/08/20 16:42 DC Levofloxacin (Levaquin) 250 mg DAILY@1800 PO 03/08/20 18:00 03/15/20 09:55 DC 03/14/20 17:54 Lidocaine (Lidoderm Patch) 1 patch DAILY TD 03/11/20 09:00 03/15/20 08:42 Non-Formulary Medication ( See Comment Field Below ) REMOVE LIDODERM PATCH DAILY@21 XX 03/11/20 21:00 03/14/20 21:30 Oxycodone HCl (Roxicodone, Oxyir) 2.5 mg Q4HP PRN PO PAIN 03/09/20 11:00 03/15/20 08:38 Oxycodone HCl (Roxicodone, Oxyir) 5 mg Q4HP PRN PO PAIN 03/08/20 14:45 03/08/20 18:49 DC Oxycodone/ Acetaminophen (Percocet 5mg/ 325mg Tablet) 1 tab Q4HP PRN PO MODERATE PAIN (PS 5-7) 03/08/20 22:00 03/09/20 11:02 DC 03/09/20 09:43 Pantoprazole Sodium (Protonix) 40 mg BID PO 03/08/20 21:00 03/15/20 08:42 Patient Own Medication (Patient'S Own Med) Insulin Apart (Noval... 6XD SQ 03/12/20 21:00 03/12/20 20:35 DC Prednisone (Deltasone) 3 mg DAILY PO 03/09/20 09:00 03/15/20 08:41 Prednisone (Deltasone) 5 mg DAILY PO 03/09/20 09:00 03/15/20 08:40 Senna (Senokot) 1 tab QHS PO 03/08/20 21:00 03/14/20 21:29 Sodium Biphosphate/ Sodium Phosphate (Fleet Enema) 1 ea DAILYPRN PRN [place] CONSTIPATION 03/08/20 14:45 03/08/20 18:49 DC Tamsulosin HCl (Flomax) 0.4 mg DAILY PO 03/09/20 09:00 03/09/20 11:02 DC 03/09/20 09:06 Tamsulosin HCl (Flomax) 0.4 mg QHS PO 03/10/20 21:00 03/14/20 21:29 JORGE A RIOJAS MD Mar 15, 2020 12:49
[2020-03-15 14:00] VITALS: BP 112/96
[2020-03-15] MEDS: PYRIDOSTIGMINE 60 MG TAB PO SCH ×2 (15:43→22:22)
[2020-03-15] MEDS: DOXYCYCLINE HYCLATE 100MG TABLET PO SCH ×2 (15:43→22:14)
[2020-03-15 20:00] VITALS: BP_SYST 122; BP_SYST 131; BP_SYST 97; BP_DIAS 50; BP_DIAS 60; BP_DIAS 73
[2020-03-15] MEDS: **NOTE PATIENT COMMENT** MISC XX SCH (21:00)
[2020-03-15] MEDS: SENNA 8.6 MG TAB (SENOKOT) PO SCH (22:13)
[2020-03-15] MEDS: TAMSULOSIN 0.4 MG CAP PO SCH (22:13)
[2020-03-15] MEDS: LATANOPROST 0.005% OPHTH SOLN 2.5 ML OS SCH (22:16)
[2020-03-16 05:55] VITALS: BP_SYST 106; BP_SYST 77; BP_SYST 83; BP_DIAS 40; BP_DIAS 53; BP_DIAS 83
[2020-03-16] MEDS: DOXYCYCLINE HYCLATE 100MG TABLET PO SCH ×2 (08:10→21:54)
[2020-03-16] MEDS: predniSONE 5 MG TAB PO SCH (08:10)
[2020-03-16] MEDS: GABAPENTIN 100 MG CAP PO SCH ×2 (08:11→21:55)
[2020-03-16] MEDS: ASPIRIN 81 MG ENTERIC TAB PO SCH (08:11)
[2020-03-16] MEDS: ACETAMINOPHEN 500 MG TAB PO SCH ×3 (08:11→21:55)
[2020-03-16] MEDS: PYRIDOSTIGMINE 60 MG TAB PO SCH ×3 (08:11→21:55)
[2020-03-16] MEDS: predniSONE 1 MG TAB PO SCH (08:12)
[2020-03-16] MEDS: FINASTERIDE 5 MG TAB PO SCH (08:12)
[2020-03-16] MEDS: LACTOBACILLUS ACIDOPHILUS CAP (BACID) PO SCH ×4 (08:12→21:55)
[2020-03-16] MEDS: BISACODYL 5 MG TAB PO SCH (08:12)
[2020-03-16] MEDS: LIDOCAINE 5% (LIDODERM) PATCH TD SCH (08:12)
[2020-03-16] MEDS: ATORVASTATIN 20 MG TAB PO SCH (08:12)
[2020-03-16] MEDS: CLOPIDOGREL 75 MG TAB PO SCH (08:12)
[2020-03-16] MEDS: PANTOPRAZOLE 40MG TAB (PROTONIX) PO SCH ×2 (08:12→21:55)
[2020-03-16] MEDS: ENOXAPARIN 40MG/0.4ML SYRINGE (J1650 PER 10MG) SC SCH (08:12)
[2020-03-16] MEDS: CitaloPRAM (CeleXA) 20 MG TAB PO SCH (08:13)
[2020-03-16] MEDS: BRIMONIDINE 0.1% OPHTH SOLN 5 ML OS SCH ×2 (08:15→21:54)
[2020-03-16] MEDS: KETOCONAZOLE 2% CREAM TOP SCH ×2 (08:16→21:56)
[2020-03-16 08:26] LABS: BLOOD UREA NITROGEN 20 MG/DL (7-18); CALCIUM LEVEL 8.4 MG/DL (8.8-10.2); CARBON DIOXIDE LEVEL 29 MEQ/L (21-32); CHLORIDE LEVEL 108 MEQ/L (98-107); CREATININE FOR GFR 0.99 MG/DL (0.70-1.30); GLOMERULAR FILTRATION RATE > 60.0 (>49); GLUCOSE, FASTING 93 MG/DL (70-100); POTASSIUM SERUM 3.6 MEQ/L (3.5-5.1); SODIUM LEVEL 142 MEQ/L (136-145)
[2020-03-16] MEDS: oxyCODONE 5MG TAB PO PRN (10:46)
--- NOTE | 2020-03-16 12:47 | IPNPDOC ---
PM&R Progress Note DATE OF SERVICE: Mar 16, 2020 Foreign Correspondent Progress Note Subjective: Patient reporting his limb is less painful today and that he is no longer dizzy with sitting up since starting mestinon. He is in good spirits. REVIEW OF SYSTEMS: The following is a completed review of systems and has been reviewed. Review of systems otherwise unremarkable. PAIN: Patient self reports right limb pain EYES: No recent vision changes EARS, NOSE, & THROAT: No throat pain, or dysphagia, or rhinorrhea CARDIOVASCULAR: Denies chest pain or palpitations PULMONARY:Denies shortness of breath GASTROINTESTINAL: denies constipation/diarrhea GENITOURINARY: +urinary retention (improving) MUSCULOSKELETAL: s/p right BKA NEUROLOGICAL:denies paresthesias HEMATOLOGICAL: +anemia SKIN: right BKA incision PSYCHIATRIC: Unremarkable All other review of systems found to be negative. PHYSICAL EXAMINATION: VITAL SIGNS: Please see below. GENERAL: Pleasant and cooperative. No acute distress. HEENT: PERRL. Extraocular movements intact. Clear conjunctiva CARDIOVASCULAR: Regular rate and rhythm. No murmurs, rubs, or gallops LUNGS: Clear to auscultation bilaterally. No wheezes. No rhonchi ABDOMEN: Soft, nontender, nondistended. Positive bowel sounds. Normal active bowel sounds NEUROLOGICAL: Alert and oriented times three. Cranial nerves II through XII grossly intact. Sensation grossly intact EXTREMITIES: 5/5 strength bilateral upper extremities. 5/5 bilat hip flexor and knee flexor/extension SKIN: right residual limb incision c/d/i, no hematoma, +pretibial erythema and mild stump erythema (new) ASSESSMENT:59-year-old M with past medical history of DM1 and PVD who presents status post right BKA PLAN: 1. rehab- PT/OT advance mobility, ADLs, strengthen/stretch/maintain ROM, teach limb care/maintenance 2. Neuro- peripheral polyneuropathy in setting of DM and PVD contributing to mobility impairments- optimize glucose control 3. CArdiac/Vas- hx of PVD with left BKA in the past now s/p right BKA 03-03-20, c/u ASa and Plavix in addition to statin -vascular consulted, c/u wound care, monitor for infection, c/u doxycycline to cover MRSA, patient instructed NOT to wear knee immobilizer as causing irritation, concern for cellulitis -orthostatics- suspect autonomic BP impairment due to longstanding DM contributing to orthostatics, c/u Mestinon 15mg TID- patient reporting he did not feel dizzy today 4. Resp- encourage incentive spirometry, monitor for infection 5. Heme- post-op anemia, s/p 1unit prbc 03-09-20 6. Endo- hx of DM1, c/u Insulin coverage-patient using his own pump, recording gluocse levels q4h for charting, hypoglycemic protocol in place -Adrenal insufficiency, c/u daily prednisone 7. GI ppx- protonix BID 8. DVT ppx- lovenox 9. Pain- tylenol and oxycodone, c/u Gabapentin (dose lowered to 100mg BID) -lidoderm to neck for cervical pain 10. - hx of BPH on proscar, flomax added in acute side for retention, changed to qHS for daytime dizziness aceves d/c'd monitor PVRs- voidig well 11. DIspo- will need time beyond 03-18-20 as suspect limb cellulitis and persistent orthostatics, will c/u to work on his medical needs Allergies Coded Allergies: No Known Allergies (Unverified , 03/01/20) Vital Signs Vital Signs Date Time Temp Pulse Resp B/P (MAP) Pulse Ox O2 Delivery O2 Flow Rate FiO2 03/16/20 11:16 16 03/16/20 05:55 98.8 67 106/53 (70) 98 Room Air Laboratory Data CBC/BMP Laboratory Tests 03/16/20 07:19 Labs 24H Laboratory Tests 2 03/16/20 05:44: Bedside Glucose (Misc Panel) 84 03/16/20 07:19: Anion Gap 5L, Glomerular Filtration Rate > 60.0, Calcium Level 8.4L Current Medications Current Medications Current Medications Medications (Trade) Dose Ordered Sig/Vladimir Route PRN Reason Start Time Stop Time Status Last Admin Dose Admin Acetaminophen (Tylenol Tab) 1,000 mg TID PO 03/08/20 16:00 03/08/20 18:49 DC 03/08/20 17:31 Acetaminophen (Tylenol Tab) 1,000 mg TID PO 03/09/20 16:00 03/16/20 08:11 Aspirin (Ecotrin) 81 mg DAILY PO 03/09/20 09:00 03/16/20 08:11 Atorvastatin Calcium (Lipitor) 40 mg DAILY PO 03/09/20 09:00 03/16/20 08:12 Bisacodyl (Dulcolax Tab) 5 mg DAILY PO 03/09/20 09:00 03/16/20 08:12 Brimonidine Tartrate (Alphagan P 0.1%) 1 drop BID OS 03/08/20 21:00 03/16/20 08:15 Citalopram Hydrobromide (CeleXA) 40 mg DAILY PO 03/09/20 09:00 03/16/20 08:13 Clopidogrel Bisulfate (PLAVix) 75 mg DAILY PO 03/09/20 09:00 03/16/20 08:12 Dextrose (Dextrose 50%) 25 ml ASDIRECTED PRN IV SEE LABEL COMMENTS 03/08/20 14:45 03/08/20 18:49 DC Docusate Sodium (Colace) 100 mg TID PO 03/08/20 16:00 03/08/20 18:49 DC 03/08/20 17:31 Doxycycline Hyclate (Vibramycin) 100 mg BID PO 03/15/20 13:00 03/21/20 21:01 03/16/20 08:10 Enoxaparin Sodium (Lovenox) 40 mg DAILY SC 03/09/20 09:00 03/16/20 08:12 Finasteride (Proscar) 5 mg DAILY PO 03/09/20 09:00 03/16/20 08:12 Gabapentin (Neurontin) 100 mg BID PO 03/11/20 21:00 03/16/20 08:11 Gabapentin (Neurontin) 300 mg BID PO 03/08/20 21:00 03/11/20 11:40 DC 03/11/20 08:46 Glucagon (Glucagon) 1 mg ASDIRECTED PRN SC SEE LABEL COMMENTS 03/08/20 14:45 03/08/20 18:49 DC Glucose (Glucose) 16 GM ASDIRECTED PRN PO SEE LABEL COMMENTS 03/08/20 14:45 03/08/20 18:49 DC Home Med (Med Rec Complete!) ASDIRECTED XX 03/08/20 16:15 03/08/20 16:16 DC Insulin Detemir (Levemir Insulin) 8 units QHS SC 03/12/20 21:00 03/12/20 16:27 DC Insulin Detemir (Levemir Insulin) 10 units DAILY SC 03/10/20 09:00 03/10/20 17:34 DC 03/10/20 07:52 Insulin Detemir (Levemir Insulin) 10 units QHS SC 03/08/20 21:00 03/10/20 09:44 DC 03/09/20 22:00 Insulin Detemir (Levemir Insulin) 14 units DAILY ND 03/11/20 09:00 03/12/20 16:27 DC 03/11/20 08:45 Insulin Detemir (Levemir Insulin) 14 units QHS ND 03/10/20 21:00 03/12/20 08:51 DC 03/10/20 20:50 Insulin Human Lispro (HumaLOG INSULIN) SEE PROTOCOL TABLE AC ND 03/08/20 17:30 03/12/20 16:27 DC 03/11/20 18:06 Insulin Human Lispro (HumaLOG INSULIN) [facility] 03/08/20 21:00 03/12/20 16:27 DC 03/10/20 20:49 Insulin Human Lispro (HumaLOG INSULIN) To use for pt. own insu... ASDIRECTED PRN SC SEE LABEL COMMENTS 03/13/20 01:30 Ketoconazole (Nizoral) APPLY SPARINGLY ... BID TOP 03/08/20 21:00 03/16/20 08:16 Lactobacillus Acidophilus (Bacid) 1 ea WMHS PO 03/08/20 18:00 03/16/20 08:12 Latanoprost (Xalatan 0.005% Op Soln) 1 drop QHS OS 03/08/20 21:00 03/15/20 22:16 Levofloxacin (Levaquin) 250 mg DAILY@06 PO 03/08/20 06:00 03/08/20 16:42 DC Levofloxacin (Levaquin) 250 mg DAILY@1800 PO 03/08/20 18:00 03/15/20 09:55 DC 03/14/20 17:54 Lidocaine (Lidoderm Patch) 1 patch DAILY TD 03/11/20 09:00 03/16/20 08:12 Non-Formulary Medication ( See Comment Field Below ) REMOVE LIDODERM PATCH DAILY@21 XX 03/11/20 21:00 03/15/20 21:00 Oxycodone HCl (Roxicodone, Oxyir) 2.5 mg Q4HP PRN PO PAIN 03/09/20 11:00 03/16/20 10:46 Oxycodone HCl (Roxicodone, Oxyir) 5 mg Q4HP PRN PO PAIN 03/08/20 14:45 03/08/20 18:49 DC Oxycodone/ Acetaminophen (Percocet 5mg/ 325mg Tablet) 1 tab Q4HP PRN PO MODERATE PAIN (PS 5-7) 03/08/20 22:00 03/09/20 11:02 DC 03/09/20 09:43 Pantoprazole Sodium (Protonix) 40 mg BID PO 03/08/20 21:00 03/16/20 08:12 Patient Own Medication (Patient'S Own Med) Insulin Apart (Noval... 6XD SQ 03/12/20 21:00 03/12/20 20:35 DC Prednisone (Deltasone) 3 mg DAILY PO 03/09/20 09:00 03/16/20 08:12 Prednisone (Deltasone) 5 mg DAILY PO 03/09/20 09:00 03/16/20 08:10 Pyridostigmine [place] (Mestinon) 15 mg TID PO 03/15/20 14:00 03/16/20 08:11 Senna (Senokot) 1 tab QHS PO 03/08/20 21:00 03/15/20 22:13 Sodium Biphosphate/ Sodium Phosphate (Fleet Enema) 1 ea DAILYPRN PRN [place] CONSTIPATION 03/08/20 14:45 03/08/20 18:49 DC Tamsulosin HCl (Flomax) 0.4 mg DAILY PO 03/09/20 09:00 03/09/20 11:02 DC 03/09/20 09:06 Tamsulosin HCl (Flomax) 0.4 mg QHS PO 03/10/20 21:00 03/15/20 22:13 JORGE A RIOJAS MD Mar 16, 2020 12:47
[2020-03-16 14:00] VITALS: BP_SYST 127; BP_SYST 130; BP_SYST 140; BP_DIAS 55; BP_DIAS 65; BP_DIAS 88
[2020-03-16 20:00] VITALS: BP_SYST 122; BP_SYST 123; BP_SYST 89; BP_DIAS 50; BP_DIAS 58; BP_DIAS 61
[2020-03-16] MEDS: LATANOPROST 0.005% OPHTH SOLN 2.5 ML OS SCH (21:54)
[2020-03-16] MEDS: TAMSULOSIN 0.4 MG CAP PO SCH (21:55)
[2020-03-16] MEDS: SENNA 8.6 MG TAB (SENOKOT) PO SCH (21:55)
[2020-03-16] MEDS: **NOTE PATIENT COMMENT** MISC XX SCH (21:56)
[2020-03-17 06:00] VITALS: BP_SYST 119; BP_SYST 152; BP_SYST 79; BP_DIAS 51; BP_DIAS 62; BP_DIAS 68
[2020-03-17] MEDS: oxyCODONE 5MG TAB PO PRN (06:14)
[2020-03-17 06:57] LABS: BASO % 0.6 % (0.0-1.0); EOS # 0.2 10^3/uL (0.0-0.5); EOS % 3.1 % (0.0-3.0); HEMOGLOBIN 9.6 g/dl (13.5-17.5); LYMPH # 2.6 10^3/uL (1.5-5.0); LYMPH % 42.1 % (24.0-44.0); MEAN CORPUSCULAR HGB CONC 33.1 g/dl (32.0-36.5); MEAN CORPUSCULAR VOLUME 90.6 fl (80.0-96.0); MONO # 0.6 10^3/uL (0.0-0.8); MONO % 9.6 % (0.0-5.0); NEUTROPHILS # 2.7 10^3/uL (1.5-8.5); NEUTROPHILS % 43.8 % (36.0-66.0); PLATELET COUNT, AUTOMATED 459 10^3/uL (150-450); WHITE BLOOD COUNT 6.2 10^3/uL (4.0-10.0)
[2020-03-17 07:22] LABS: BLOOD UREA NITROGEN 17 MG/DL (7-18); C REACTIVE PROTEIN QUANTITATIV 0.75 MG/DL (0.00-0.30); CARBON DIOXIDE LEVEL 25 MEQ/L (21-32); CHLORIDE LEVEL 108 MEQ/L (98-107); GLOMERULAR FILTRATION RATE > 60.0 (>49); GLUCOSE, FASTING 102 MG/DL (70-100); SODIUM LEVEL 139 MEQ/L (136-145)
[2020-03-17 07:26] LABS: ERYTHROCYTE SEDIMENTATION RATE 41 mm/hr (0-20)
[2020-03-17] MEDS: LIDOCAINE 5% (LIDODERM) PATCH TD SCH (07:46)
[2020-03-17] MEDS: PANTOPRAZOLE 40MG TAB (PROTONIX) PO SCH ×2 (07:47→20:15)
[2020-03-17] MEDS: ENOXAPARIN 40MG/0.4ML SYRINGE (J1650 PER 10MG) SC SCH (07:47)
[2020-03-17] MEDS: CLOPIDOGREL 75 MG TAB PO SCH (07:47)
[2020-03-17] MEDS: predniSONE 5 MG TAB PO SCH (07:47)
[2020-03-17] MEDS: LACTOBACILLUS ACIDOPHILUS CAP (BACID) PO SCH ×4 (07:47→20:12)
[2020-03-17] MEDS: predniSONE 1 MG TAB PO SCH (07:47)
[2020-03-17] MEDS: FINASTERIDE 5 MG TAB PO SCH (07:48)
[2020-03-17] MEDS: ATORVASTATIN 20 MG TAB PO SCH (07:48)
[2020-03-17] MEDS: CitaloPRAM (CeleXA) 20 MG TAB PO SCH (07:48)
[2020-03-17] MEDS: DOXYCYCLINE HYCLATE 100MG TABLET PO SCH ×2 (07:48→20:13)
[2020-03-17] MEDS: ACETAMINOPHEN 500 MG TAB PO SCH ×3 (07:48→20:13)
[2020-03-17] MEDS: GABAPENTIN 100 MG CAP PO SCH ×2 (07:48→20:14)
[2020-03-17] MEDS: ASPIRIN 81 MG ENTERIC TAB PO SCH (07:48)
[2020-03-17] MEDS: BRIMONIDINE 0.1% OPHTH SOLN 5 ML OS SCH ×2 (07:49→20:15)
[2020-03-17] MEDS: KETOCONAZOLE 2% CREAM TOP SCH ×2 (07:49→20:16)
[2020-03-17] MEDS: BISACODYL 5 MG TAB PO SCH (07:49)
[2020-03-17] MEDS: PYRIDOSTIGMINE 60 MG TAB PO SCH ×3 (07:49→20:14)
[2020-03-17 14:00] VITALS: BP_SYST 117; BP_SYST 124; BP_SYST 138; BP_DIAS 56; BP_DIAS 60; BP_DIAS 65
--- NOTE | 2020-03-17 15:50 | IPNPDOC ---
PM&R Progress Note DATE OF SERVICE: Mar 17, 2020 Expediter Progress Note Subjective: Patient reporting his neck is quite sore, but that the lidoderm patch is helping. He denies fevers and chills. REVIEW OF SYSTEMS: The following is a completed review of systems and has been reviewed. Review of systems otherwise unremarkable. PAIN: Patient self reports right limb pain and neck pain EYES: No recent vision changes EARS, NOSE, & THROAT: No throat pain, or dysphagia, or rhinorrhea CARDIOVASCULAR: Denies chest pain or palpitations PULMONARY:Denies shortness of breath GASTROINTESTINAL: denies constipation/diarrhea GENITOURINARY: +urinary retention resolved MUSCULOSKELETAL: s/p right BKA NEUROLOGICAL:denies paresthesias HEMATOLOGICAL: +anemia SKIN: right BKA incision PSYCHIATRIC: Unremarkable All other review of systems found to be negative. PHYSICAL EXAMINATION: VITAL SIGNS: Please see below. GENERAL: Pleasant and cooperative. No acute distress. HEENT: PERRL. Extraocular movements intact. Clear conjunctiva CARDIOVASCULAR: Regular rate and rhythm. No murmurs, rubs, or gallops LUNGS: Clear to auscultation bilaterally. No wheezes. No rhonchi ABDOMEN: Soft, nontender, nondistended. Positive bowel sounds. Normal active bow el sounds NEUROLOGICAL: Alert and oriented times three. Cranial nerves II through XII grossly intact. Sensation grossly intact EXTREMITIES: 5/5 strength bilateral upper extremities. 5/5 bilat hip flexor and knee flexor/extension SKIN: right residual limb incision c/d/i, no hematoma, +pretibial erythema and mild stump erythema (improving) ASSESSMENT:59-year-old M with past medical history of DM1 and PVD who presents status post right BKA PLAN: 1. rehab- PT/OT advance mobility, ADLs, strengthen/stretch/maintain ROM, teach limb care/maintenance 2. Neuro- peripheral polyneuropathy in setting of DM and PVD contributing to mobility impairments- optimize glucose control 3. CArdiac/Vas- hx of PVD with left BKA in the past now s/p right BKA 12, c/u ASa and Plavix in addition to statin -vascular consulted, c/u wound care, monitor for infection, c/u doxycycline to cover MRSA, patient instructed NOT to wear knee immobilizer as causing irritation, concern for cellulitis (improving) -orthostatics- suspect autonomic BP impairment due to longstanding DM contributing to orthostatics, c/u Mestinon 15mg TID- patient reporting he c/u to not feel dizzy despite recorded orthostatics, c/u on this dosing 4. Resp- encourage incentive spirometry, monitor for infection 5. Heme- post-op anemia, s/p 1unit prbc 03-09-20 6. Endo- hx of DM1, c/u Insulin coverage-patient using his own pump, recording gluocse levels q4h for charting, hypoglycemic protocol in place -Adrenal insufficiency, c/u daily prednisone 7. GI ppx- protonix BID 8. DVT ppx- lovenox 9. Pain- tylenol and oxycodone, c/u Gabapentin (dose lowered to 100mg BID) -lidoderm to neck for cervical pain, patient encourgaed to work on neck extensor exercises while lying prone in therapy 10. - hx of BPH on proscar, c/u flomax, voiding well 11. DIspo- 03-24-20 to home, progressing towards goals Allergies Coded Allergies: No Known Allergies (Unverified , 03/01/20) Vital Signs Vital Signs Date Time Temp Pulse Resp B/P (MAP) Pulse Ox O2 Delivery O2 Flow Rate FiO2 03/17/20 14:00 77 124/60 (81) 75 117/56 (76) 69 138/65 (89) 03/17/20 14:00 98.9 18 98 Room Air Laboratory Data CBC/BMP Laboratory Tests 03/17/20 06:36 Labs 24H Laboratory Tests 2 03/17/20 05:41: Bedside Glucose (Misc Panel) 72L 03/17/20 06:36: Immature Granulocyte % (Auto) 0.8, Neutrophils (%) (Auto) 43.8, Lymphocytes (%) (Auto) 42.1, Monocytes (%) (Auto) 9.6H, Eosinophils (%) (Auto) 3.1H, Basophils (%) (Auto) 0.6, Neutrophils # (Auto) 2.7, Lymphocytes # (Auto) 2.6, Monocytes # (Auto) 0.6, Eosinophils # (Auto) 0.2, Basophils # (Auto) 0.0, Nucleated Red Blood Cells % (auto) 0.0, Erythrocyte Sedimentation Rate 41H, Anion Gap 6L, Glomerular Filtration Rate > 60.0, Calcium Level 9.0, C-Reactive Protein, Quantitative 0.75H Current Medications Current Medications Current Medications Medications (Trade) Dose Ordered Sig/Vladimir Route PRN Reason Start Time Stop Time Status Last Admin Dose Admin Acetaminophen (Tylenol Tab) 1,000 mg TID PO 03/08/20 16:00 03/08/20 18:49 DC 03/08/20 17:31 Acetaminophen (Tylenol Tab) 1,000 mg TID PO 03/09/20 16:00 03/17/20 07:48 Aspirin (Ecotrin) 81 mg DAILY PO 03/09/20 09:00 03/17/20 07:48 Atorvastatin Calcium (Lipitor) 40 mg DAILY PO 03/09/20 09:00 03/17/20 07:48 Bisacodyl (Dulcolax Tab) 5 mg DAILY PO 03/09/20 09:00 03/17/20 07:49 Brimonidine Tartrate (Alphagan P 0.1%) 1 drop BID OS 03/08/20 21:00 03/17/20 07:49 Citalopram Hydrobromide (CeleXA) 40 mg DAILY PO 03/09/20 09:00 03/17/20 07:48 Clopidogrel Bisulfate (PLAVix) 75 mg DAILY PO 03/09/20 09:00 03/17/20 07:47 Dextrose (Dextrose 50%) 25 ml ASDIRECTED PRN IV SEE LABEL COMMENTS 03/08/20 14:45 03/08/20 18:49 DC Docusate Sodium (Colace) 100 mg TID PO 03/08/20 16:00 03/08/20 18:49 DC 03/08/20 17:31 Doxycycline Hyclate (Vibramycin) 100 mg BID PO 03/15/20 13:00 03/21/20 21:01 03/17/20 07:48 Enoxaparin Sodium (Lovenox) 40 mg DAILY SC 03/09/20 09:00 03/17/20 07:47 Finasteride (Proscar) 5 mg DAILY PO 03/09/20 09:00 03/17/20 07:48 Gabapentin (Neurontin) 100 mg BID PO 03/11/20 21:00 03/17/20 07:48 Gabapentin (Neurontin) 300 mg BID PO 03/08/20 21:00 03/11/20 11:40 DC 03/11/20 08:46 Glucagon (Glucagon) 1 mg ASDIRECTED PRN SC SEE LABEL COMMENTS 03/08/20 14:45 03/08/20 18:49 DC Glucose (Glucose) 16 GM ASDIRECTED PRN PO SEE LABEL COMMENTS 03/08/20 14:45 03/08/20 18:49 DC Home Med (Med Rec Complete!) ASDIRECTED XX 03/08/20 16:15 03/08/20 16:16 DC Insulin Detemir (Levemir Insulin) 8 units QHS SC 03/12/20 21:00 03/12/20 16:27 DC Insulin Detemir (Levemir Insulin) 10 units DAILY SC 03/10/20 09:00 03/10/20 17:34 DC 03/10/20 07:52 Insulin Detemir (Levemir Insulin) 10 units QHS SC 03/08/20 21:00 03/10/20 09:44 DC 03/09/20 22:00 Insulin Detemir (Levemir Insulin) 14 units DAILY UT 03/11/20 09:00 03/12/20 16:27 DC 03/11/20 08:45 Insulin Detemir (Levemir Insulin) 14 units QHS SC 03/10/20 21:00 03/12/20 08:51 DC 03/10/20 20:50 Insulin Human Lispro (HumaLOG INSULIN) SEE PROTOCOL TABLE AC UT 03/08/20 17:30 03/12/20 16:27 DC 03/11/20 18:06 Insulin Human Lispro (HumaLOG INSULIN) SEE PROTOCOL TABLE QHS UT 03/08/20 21:00 03/12/20 16:27 DC 03/10/20 20:49 Insulin Human Lispro (HumaLOG INSULIN) To use for pt. own insu... ASDIRECTED PRN SC SEE LABEL COMMENTS 03/13/20 01:30 Ketoconazole (Nizoral) APPLY SPARINGLY ... BID TOP 03/08/20 21:00 03/16/20 21:56 Lactobacillus Acidophilus (Bacid) 1 ea WMHS PO 03/08/20 18:00 03/17/20 12:28 Latanoprost (Xalatan 0.005% Op Soln) 1 drop QHS OS 03/08/20 21:00 03/16/20 21:54 Levofloxacin (Levaquin) 250 mg DAILY@06 PO 03/08/20 06:00 03/08/20 16:42 DC Levofloxacin (Levaquin) 250 mg DAILY@1800 PO 03/08/20 18:00 03/15/20 09:55 DC 03/14/20 17:54 Lidocaine (Lidoderm Patch) 1 patch DAILY TD 03/11/20 09:00 03/17/20 07:46 Non-Formulary Medication ( See Comment Field Below ) REMOVE LIDODERM PATCH DAILY@21 XX 03/11/20 21:00 03/16/20 21:56 Oxycodone HCl (Roxicodone, Oxyir) 2.5 mg Q4HP PRN PO PAIN 03/09/20 11:00 03/17/20 06:14 Oxycodone HCl (Roxicodone, Oxyir) 5 mg Q4HP PRN PO PAIN 03/08/20 14:45 03/08/20 18:49 DC Oxycodone/ Acetaminophen (Percocet 5mg/ 325mg Tablet) 1 tab Q4HP PRN PO MODERATE PAIN (PS 5-7) 03/08/20 22:00 03/09/20 11:02 DC 03/09/20 09:43 Pantoprazole Sodium (Protonix) 40 mg BID PO 03/08/20 21:00 03/17/20 07:47 Patient Own Medication (Patient'S Own Med) Insulin Apart (Noval... 6XD SQ 03/12/20 21:00 03/12/20 20:35 DC Prednisone (Deltasone) 3 mg DAILY PO 03/09/20 09:00 03/17/20 07:47 Prednisone (Deltasone) 5 mg DAILY PO 03/09/20 09:00 03/17/20 07:47 Pyridostigmine [place] (Mestinon) 15 mg TID PO 03/15/20 14:00 03/17/20 07:49 Senna (Senokot) 1 tab QHS PO 03/08/20 21:00 03/16/20 21:55 Sodium Biphosphate/ Sodium Phosphate (Fleet Enema) 1 ea DAILYPRN PRN SD CONSTIPATION 03/08/20 14:45 03/08/20 18:49 DC Tamsulosin HCl (Flomax) 0.4 mg DAILY PO 03/09/20 09:00 03/09/20 11:02 DC 03/09/20 09:06 Tamsulosin HCl (Flomax) 0.4 mg QHS PO 03/10/20 21:00 03/16/20 21:55 JORGE A RIOJAS MD Mar 17, 2020 15:50
[2020-03-17] MEDS: TAMSULOSIN 0.4 MG CAP PO SCH (20:12)
[2020-03-17] MEDS: SENNA 8.6 MG TAB (SENOKOT) PO SCH (20:14)
[2020-03-17] MEDS: LATANOPROST 0.005% OPHTH SOLN 2.5 ML OS SCH (20:15)
[2020-03-17] MEDS: **NOTE PATIENT COMMENT** MISC XX SCH (20:17)
[2020-03-17 20:30] VITALS: BP 148/68
[2020-03-17 22:00] VITALS: BP_SYST 134; BP_SYST 139; BP_SYST 140; BP_DIAS 64; BP_DIAS 68; BP_DIAS 70
[2020-03-18 06:00] VITALS: BP 141/73
[2020-03-18] MEDS: oxyCODONE 5MG TAB PO PRN (07:10)
[2020-03-18] MEDS: LIDOCAINE 5% (LIDODERM) PATCH TD SCH (08:30)
[2020-03-18] MEDS: LACTOBACILLUS ACIDOPHILUS CAP (BACID) PO SCH ×4 (08:31→20:52)
[2020-03-18] MEDS: PANTOPRAZOLE 40MG TAB (PROTONIX) PO SCH ×2 (08:31→20:52)
[2020-03-18] MEDS: FINASTERIDE 5 MG TAB PO SCH (08:31)
[2020-03-18] MEDS: CLOPIDOGREL 75 MG TAB PO SCH (08:31)
[2020-03-18] MEDS: ASPIRIN 81 MG ENTERIC TAB PO SCH (08:31)
[2020-03-18] MEDS: predniSONE 5 MG TAB PO SCH (08:31)
[2020-03-18] MEDS: GABAPENTIN 100 MG CAP PO SCH ×2 (08:31→20:51)
[2020-03-18] MEDS: predniSONE 1 MG TAB PO SCH (08:31)
[2020-03-18] MEDS: BISACODYL 5 MG TAB PO SCH (08:31)
[2020-03-18] MEDS: BRIMONIDINE 0.1% OPHTH SOLN 5 ML OS SCH ×2 (08:31→20:53)
[2020-03-18] MEDS: ATORVASTATIN 20 MG TAB PO SCH (08:31)
[2020-03-18] MEDS: ACETAMINOPHEN 500 MG TAB PO SCH ×3 (08:32→20:52)
[2020-03-18] MEDS: CitaloPRAM (CeleXA) 20 MG TAB PO SCH (08:32)
[2020-03-18] MEDS: DOXYCYCLINE HYCLATE 100MG TABLET PO SCH ×2 (08:32→20:52)
[2020-03-18] MEDS: ENOXAPARIN 40MG/0.4ML SYRINGE (J1650 PER 10MG) SC SCH (08:32)
[2020-03-18] MEDS: PYRIDOSTIGMINE 60 MG TAB PO SCH ×3 (08:33→20:52)
[2020-03-18] MEDS: KETOCONAZOLE 2% CREAM TOP SCH ×2 (08:34→20:53)
[2020-03-18] MEDS ORDERED: diphenhydrAMINE 25MG CAP PO ONE (10:00)
--- NOTE | 2020-03-18 12:13 | IPNPDOC ---
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 He says he continues to not feel dizzy. REVIEW OF SYSTEMS: The following is a completed review of systems and has been reviewed. Review of systems otherwise unremarkable. PAIN: Patient self reports right limb pain and neck pain EYES: No recent vision changes EARS, NOSE, & THROAT: No throat pain, or dysphagia, or rhinorrhea CARDIOVASCULAR: Denies chest pain or palpitations PULMONARY:Denies shortness of breath GASTROINTESTINAL: denies constipation/diarrhea GENITOURINARY: +urinary retention resolved MUSCULOSKELETAL: s/p right BKA NEUROLOGICAL:denies paresthesias HEMATOLOGICAL: +anemia SKIN: right BKA incision, back rash PSYCHIATRIC: Unremarkable All other review of systems found to be negative. PHYSICAL EXAMINATION: VITAL SIGNS: Please see below. GENERAL: Pleasant and cooperative. No acute distress. HEENT: PERRL. Extraocular movements intact. Clear conjunctiva CARDIOVASCULAR: Regular rate and rhythm. No murmurs, rubs, or gallops LUNGS: Clear to auscultation bilaterally. No wheezes. No rhonchi ABDOMEN: Soft, nontender, nondistended. Positive bowel sounds. Normal active bowel sounds NEUROLOGICAL: Alert and oriented times three. Cranial nerves II through XII grossly intact. Sensation grossly intact EXTREMITIES: 5/5 strength bilateral upper extremities. 5/5 bilat hip flexor and knee flexor/extension SKIN: right residual limb incision c/d/i, no hematoma, +pretibial erythema and mild stump erythema scattered raised papules on back ASSESSMENT:59-year-old M with past medical history of DM1 and PVD who presents status post right BKA PLAN: 1. rehab- PT/OT advance mobility, ADLs, strengthen/stretch/maintain ROM, teach limb care/maintenance 2. Neuro- peripheral polyneuropathy in setting of DM and PVD contributing to mobility impairments- optimize glucose control 3. CArdiac/Vas- hx of PVD with left BKA in the past now s/p right BKA 12, c/u ASa and Plavix in addition to statin -vascular consulted, c/u wound care, monitor for infection, c/u doxycycline to cover MRSA, patient instructed NOT to wear knee immobilizer as causing irritation, concern for cellulitis (improving) -orthostatics- improved suspect autonomic BP impairment due to longstanding DM contributing to orthostatics, c/u Mestinon 15mg TID- patient reporting he c/u to not feel dizzy 4. Resp- encourage incentive spirometry, monitor for infection 5. Heme- post-op anemia, s/p 1unit prbc 03-09-20 6. Endo- hx of DM1, c/u Insulin coverage-patient using his own pump, recording gluocse levels q4h for charting, hypoglycemic protocol in place -Adrenal insufficiency, c/u daily prednisone 7. GI ppx- protonix BID 8. DVT ppx- lovenox 9. Pain- tylenol and oxycodone, c/u Gabapentin (dose lowered to 100mg BID) -lidoderm to neck for cervical pain, patient encourgaed to work on neck extensor exercises while lying prone in therapy 10. - hx of BPH on proscar, c/u flomax, voiding well 11. Skin- rash on back on rash possible reaction to antibiotics, responding to oral Benadryl, will c/u to monitor 12. DIspo- 03-24-20 to home, progressing towards goals Allergies Coded Allergies: No Known Allergies (Unverified , 03/01/20) Vital Signs Vital Signs Date Time Temp Pulse Resp B/P (MAP) Pulse Ox O2 Delivery O2 Flow Rate FiO2 03/18/20 08:00 20 03/18/20 06:00 99.0 68 141/73 (95) 98 Room Air Current Medications Current Medications Current Medications Medications (Trade) Dose Ordered Sig/Vladimir Route PRN Reason Start Time Stop Time Status Last Admin Dose Admin Acetaminophen (Tylenol Tab) 1,000 mg TID PO 03/08/20 16:00 03/08/20 18:49 DC 03/08/20 17:31 Acetaminophen (Tylenol Tab) 1,000 mg TID PO 03/09/20 16:00 03/18/20 08:32 Aspirin (Ecotrin) 81 mg DAILY PO 03/09/20 09:00 03/18/20 08:31 Atorvastatin Calcium (Lipitor) 40 mg DAILY PO 03/09/20 09:00 03/18/20 08:31 Bisacodyl (Dulcolax Tab) 5 mg DAILY PO 03/09/20 09:00 03/18/20 08:31 Brimonidine Tartrate (Alphagan P 0.1%) 1 drop BID OS 03/08/20 21:00 03/18/20 08:31 Citalopram Hydrobromide (CeleXA) 40 mg DAILY PO 03/09/20 09:00 03/18/20 08:32 Clopidogrel Bisulfate (PLAVix) 75 mg DAILY PO 03/09/20 09:00 03/18/20 08:31 Dextrose (Dextrose 50%) 25 ml ASDIRECTED PRN IV SEE LABEL COMMENTS 03/08/20 14:45 03/08/20 18:49 DC Docusate Sodium (Colace) 100 mg TID PO 03/08/20 16:00 03/08/20 18:49 DC 03/08/20 17:31 Doxycycline Hyclate (Vibramycin) 100 mg BID PO 03/15/20 13:00 03/21/20 21:01 03/18/20 08:32 Enoxaparin Sodium (Lovenox) 40 mg DAILY SC 03/09/20 09:00 03/18/20 08:32 Finasteride (Proscar) 5 mg DAILY PO 03/09/20 09:00 03/18/20 08:31 Gabapentin (Neurontin) 100 mg BID PO 03/11/20 21:00 03/18/20 08:31 Gabapentin (Neurontin) 300 mg BID PO 03/08/20 21:00 03/11/20 11:40 DC 03/11/20 08:46 Glucagon (Glucagon) 1 mg ASDIRECTED PRN SC SEE LABEL COMMENTS 03/08/20 14:45 03/08/20 18:49 DC Glucose (Glucose) 16 GM ASDIRECTED PRN PO SEE LABEL COMMENTS 03/08/20 14:45 03/08/20 18:49 DC Home Med (Med Rec Complete!) ASDIRECTED XX 03/08/20 16:15 03/08/20 16:16 DC Insulin Detemir (Levemir Insulin) 8 units QHS SC 03/12/20 21:00 03/12/20 16:27 DC Insulin Detemir (Levemir Insulin) 10 units DAILY SC 03/10/20 09:00 03/10/20 17:34 DC 03/10/20 07:52 Insulin Detemir (Levemir Insulin) 10 units QHS SC 03/08/20 21:00 03/10/20 09:44 DC 03/09/20 22:00 Insulin Detemir (Levemir Insulin) 14 units DAILY SC 03/11/20 09:00 03/12/20 16:27 DC 03/11/20 08:45 Insulin Detemir (Levemir Insulin) 14 units QHS SC 03/10/20 21:00 03/12/20 08:51 DC 03/10/20 20:50 Insulin Human Lispro (HumaLOG INSULIN) SEE PROTOCOL TABLE AC SC 03/08/20 17:30 03/12/20 16:27 DC 03/11/20 18:06 Insulin Human Lispro (HumaLOG INSULIN) SEE PROTOCOL TABLE QHS [place] 03/08/20 21:00 03/12/20 16:27 DC 03/10/20 20:49 Insulin Human Lispro (HumaLOG INSULIN) To use for pt. own insu... ASDIRECTED PRN SC SEE LABEL COMMENTS 03/13/20 01:30 Ketoconazole (Nizoral) APPLY SPARINGLY ... BID TOP 03/08/20 21:00 03/16/20 21:56 Lactobacillus Acidophilus (Bacid) 1 ea WMHS PO 03/08/20 18:00 03/18/20 08:31 Latanoprost (Xalatan 0.005% Op Soln) 1 drop QHS OS 03/08/20 21:00 03/17/20 20:15 Levofloxacin (Levaquin) 250 mg DAILY@06 PO 03/08/20 06:00 03/08/20 16:42 DC Levofloxacin (Levaquin) 250 mg DAILY@1800 PO 03/08/20 18:00 03/15/20 09:55 DC 03/14/20 17:54 Lidocaine (Lidoderm Patch) 1 patch DAILY TD 03/11/20 09:00 03/18/20 08:30 Non-Formulary Medication ( See Comment Field Below ) REMOVE LIDODERM PATCH DAILY@21 XX 03/11/20 21:00 03/17/20 20:17 Oxycodone HCl (Roxicodone, Oxyir) 2.5 mg Q4HP PRN PO PAIN 03/09/20 11:00 03/18/20 07:10 Oxycodone HCl (Roxicodone, Oxyir) 5 mg Q4HP PRN PO PAIN 03/08/20 14:45 03/08/20 18:49 DC Oxycodone/ Acetaminophen (Percocet 5mg/ 325mg Tablet) 1 tab Q4HP PRN PO MODERATE PAIN (PS 5-7) 03/08/20 22:00 03/09/20 11:02 DC 03/09/20 09:43 Pantoprazole Sodium (Protonix) 40 mg BID PO 03/08/20 21:00 03/18/20 08:31 Patient Own Medication (Patient'S Own Med) Insulin Apart (Noval... 6XD SQ 03/12/20 21:00 03/12/20 20:35 DC Prednisone (Deltasone) 3 mg DAILY PO 03/09/20 09:00 03/18/20 08:31 Prednisone (Deltasone) 5 mg DAILY PO 03/09/20 09:00 03/18/20 08:31 Pyridostigmine [place] (Mestinon) 15 mg TID PO 03/15/20 14:00 03/18/20 08:33 Senna (Senokot) 1 tab QHS PO 03/08/20 21:00 03/17/20 20:14 Sodium Biphosphate/ Sodium Phosphate (Fleet Enema) 1 ea DAILYPRN PRN [place] CONSTIPATION 03/08/20 14:45 03/08/20 18:49 DC Tamsulosin HCl (Flomax) 0.4 mg DAILY PO 03/09/20 09:00 03/09/20 11:02 DC 03/09/20 09:06 Tamsulosin HCl (Flomax) 0.4 mg QHS PO 03/10/20 21:00 03/17/20 20:12 JORGE A RIOJAS MD Mar 18, 2020 12:12
[2020-03-18 14:00] VITALS: BP 112/56
[2020-03-18] MEDS: TAMSULOSIN 0.4 MG CAP PO SCH (20:52)
[2020-03-18] MEDS: SENNA 8.6 MG TAB (SENOKOT) PO SCH (20:52)
[2020-03-18] MEDS: LATANOPROST 0.005% OPHTH SOLN 2.5 ML OS SCH (20:53)
[2020-03-18] MEDS: **NOTE PATIENT COMMENT** MISC XX SCH (20:53)
[2020-03-18 21:00] VITALS: BP 134/63
[2020-03-19] MEDS: diphenhydrAMINE 25MG CAP PO PRN ×2 (00:06→20:13)
[2020-03-19 06:00] VITALS: BP 121/58
[2020-03-19 06:50] LABS: BASO % 0.7 % (0.0-1.0); EOS # 0.2 10^3/uL (0.0-0.5); HEMATOCRIT 29.8 % (42.0-52.0); HEMOGLOBIN 9.6 g/dl (13.5-17.5); LYMPH # 2.1 10^3/uL (1.5-5.0); LYMPH % 34.2 % (24.0-44.0); MEAN CORPUSCULAR HEMOGLOBIN 30.4 pg (27.0-33.0); MEAN CORPUSCULAR HGB CONC 32.2 g/dl (32.0-36.5); MEAN CORPUSCULAR VOLUME 94.3 fl (80.0-96.0); MONO # 0.6 10^3/uL (0.0-0.8); MONO % 10.3 % (0.0-5.0); NEUTROPHILS # 3.1 10^3/uL (1.5-8.5); NEUTROPHILS % 50.8 % (36.0-66.0); PLATELET COUNT, AUTOMATED 444 10^3/uL (150-450); RED BLOOD COUNT 3.16 10^6/uL (4.30-6.10)
[2020-03-19 07:14] LABS: BLOOD UREA NITROGEN 18 MG/DL (7-18); CARBON DIOXIDE LEVEL 28 MEQ/L (21-32); CHLORIDE LEVEL 107 MEQ/L (98-107); CREATININE FOR GFR 1.01 MG/DL (0.70-1.30); GLOMERULAR FILTRATION RATE > 60.0 (>49); GLUCOSE, FASTING 71 MG/DL (70-100); POTASSIUM SERUM 4.4 MEQ/L (3.5-5.1); SODIUM LEVEL 142 MEQ/L (136-145)
[2020-03-19] MEDS: ACETAMINOPHEN 500 MG TAB PO SCH ×3 (09:31→21:11)
[2020-03-19] MEDS: PANTOPRAZOLE 40MG TAB (PROTONIX) PO SCH ×2 (09:31→21:10)
[2020-03-19] MEDS: ASPIRIN 81 MG ENTERIC TAB PO SCH (09:31)
[2020-03-19] MEDS: FINASTERIDE 5 MG TAB PO SCH (09:31)
[2020-03-19] MEDS: DOXYCYCLINE HYCLATE 100MG TABLET PO SCH ×2 (09:31→21:10)
[2020-03-19] MEDS: predniSONE 1 MG TAB PO SCH (09:31)
[2020-03-19] MEDS: LACTOBACILLUS ACIDOPHILUS CAP (BACID) PO SCH ×4 (09:32→21:10)
[2020-03-19] MEDS: PYRIDOSTIGMINE 60 MG TAB PO SCH ×3 (09:32→21:12)
[2020-03-19] MEDS: CitaloPRAM (CeleXA) 20 MG TAB PO SCH (09:32)
[2020-03-19] MEDS: GABAPENTIN 100 MG CAP PO SCH ×2 (09:33→21:10)
[2020-03-19] MEDS: CLOPIDOGREL 75 MG TAB PO SCH (09:33)
[2020-03-19] MEDS: ENOXAPARIN 40MG/0.4ML SYRINGE (J1650 PER 10MG) SC SCH (09:33)
[2020-03-19] MEDS: ATORVASTATIN 20 MG TAB PO SCH (09:33)
[2020-03-19] MEDS: BISACODYL 5 MG TAB PO SCH (09:33)
[2020-03-19] MEDS: predniSONE 5 MG TAB PO SCH (09:34)
[2020-03-19] MEDS: LIDOCAINE 5% (LIDODERM) PATCH TD SCH (09:34)
[2020-03-19] MEDS: BRIMONIDINE 0.1% OPHTH SOLN 5 ML OS SCH ×2 (09:35→21:11)
[2020-03-19] MEDS: KETOCONAZOLE 2% CREAM TOP SCH ×2 (09:35→21:00)
--- NOTE | 2020-03-19 10:35 | IPNPDOC ---
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 REVIEW OF SYSTEMS: The following is a completed review of systems and has been reviewed. Review of systems otherwise unremarkable. PAIN: Patient self reports right limb pain and neck pain EYES: No recent vision changes EARS, NOSE, & THROAT: No throat pain, or dysphagia, or rhinorrhea CARDIOVASCULAR: Denies chest pain or palpitations PULMONARY:Denies shortness of breath GASTROINTESTINAL: denies constipation/diarrhea GENITOURINARY: +urinary retention resolved MUSCULOSKELETAL: s/p right BKA NEUROLOGICAL:denies paresthesias HEMATOLOGICAL: +anemia SKIN: right BKA incision, back rash (improving) PSYCHIATRIC: Unremarkable All other review of systems found to be negative. PHYSICAL EXAMINATION: VITAL SIGNS: Please see below. GENERAL: Pleasant and cooperative. No acute distress. HEENT: PERRL. Extraocular movements intact. Clear conjunctiva CARDIOVASCULAR: Regular rate and rhythm. No murmurs, rubs, or gallops LUNGS: Clear to auscultation bilaterally. No wheezes. No rhonchi ABDOMEN: Soft, nontender, nondistended. Positive bowel sounds. Normal active bowel sounds NEUROLOGICAL: Alert and oriented times three. Cranial nerves II through XII grossly intact. Sensation grossly intact EXTREMITIES: 5/5 strength bilateral upper extremities. 5/5 bilat hip flexor and knee flexor/extension SKIN: right residual limb incision c/d/i, no hematoma, +pretibial erythema and mild stump erythema (improving) ASSESSMENT:59-year-old M with past medical history of DM1 and PVD who presents status post right BKA PLAN: 1. rehab- PT/OT advance mobility, ADLs, strengthen/stretch/maintain ROM, teach limb care/maintenance 2. Neuro- peripheral polyneuropathy in setting of DM and PVD contributing to mobility impairments- optimize glucose control 3. CArdiac/Vas- hx of PVD with left BKA in the past now s/p right BKA 12, c/u ASa and Plavix in addition to statin -vascular consulted, c/u wound care, monitor for infection, c/u doxycycline to cover MRSA, patient instructed NOT to wear knee immobilizer as causing irritation, concern for cellulitis (improving) -orthostatics- improved suspect autonomic BP impairment due to longstanding DM contributing to orthostatics, c/u Mestinon 15mg TID- patient reporting he c/u to not feel dizzy 4. Resp- encourage incentive spirometry, monitor for infection 5. Heme- post-op anemia, s/p 1unit prbc 03-09-20 6. Endo- hx of DM1, c/u Insulin coverage-patient using his own pump, recording gluocse levels q4h for charting, hypoglycemic protocol in place -Adrenal insufficiency, c/u daily prednisone 7. GI ppx- protonix BID 8. DVT ppx- lovenox 9. Pain- tylenol and oxycodone, c/u Gabapentin (dose lowered to 100mg BID) -lidoderm to neck for cervical pain, patient encourgaed to work on neck extensor exercises while lying prone in therapy 10. - hx of BPH on proscar, c/u flomax, voiding well 11. Skin- rash on back on rash possible reaction to antibiotics, responding to oral Benadryl, will c/u to monitor, improved today 12. DIspo- 03-24-20 to home, progressing towards goals Allergies Coded Allergies: No Known Allergies (Unverified , 03/01/20) Vital Signs Vital Signs Date Time Temp Pulse Resp B/P (MAP) Pulse Ox O2 Delivery O2 Flow Rate FiO2 03/19/20 06:00 98.9 64 18 121/58 (79) 99 Room Air Laboratory Data CBC/BMP Laboratory Tests 03/19/20 06:21 Labs 24H Laboratory Tests 2 03/18/20 20:13: Bedside Glucose (Misc Panel) 158H 03/19/20 06:21: Immature Granulocyte % (Auto) 1.0, Neutrophils (%) (Auto) 50.8, Lymphocytes (%) (Auto) 34.2, Monocytes (%) (Auto) 10.3H, Eosinophils (%) (Auto) 3.0, Basophils (%) (Auto) 0.7, Neutrophils # (Auto) 3.1, Lymphocytes # (Auto) 2.1, Monocytes # (Auto) 0.6, Eosinophils # (Auto) 0.2, Basophils # (Auto) 0.0, Nucleated Red Blood Cells % (auto) 0.0, Anion Gap 7L, Glomerular Filtration Rate > 60.0, Calcium Level 9.0 Current Medications Current Medications Current Medications Medications (Trade) Dose Ordered Sig/Vladimir Route PRN Reason Start Time Stop Time Status Last Admin Dose Admin Acetaminophen (Tylenol Tab) 1,000 mg TID PO 03/08/20 16:00 03/08/20 18:49 DC 03/08/20 17:31 Acetaminophen (Tylenol Tab) 1,000 mg TID PO 03/09/20 16:00 03/19/20 09:31 Aspirin (Ecotrin) 81 mg DAILY PO 03/09/20 09:00 03/19/20 09:31 Atorvastatin Calcium (Lipitor) 40 mg DAILY PO 03/09/20 09:00 03/19/20 09:33 Bisacodyl (Dulcolax Tab) 5 mg DAILY PO 03/09/20 09:00 03/19/20 09:33 Brimonidine Tartrate (Alphagan P 0.1%) 1 drop BID OS 03/08/20 21:00 03/19/20 09:35 Citalopram Hydrobromide (CeleXA) 40 mg DAILY PO 03/09/20 09:00 03/19/20 09:32 Clopidogrel Bisulfate (PLAVix) 75 mg DAILY PO 03/09/20 09:00 03/19/20 09:33 Dextrose (Dextrose 50%) 25 ml ASDIRECTED PRN IV SEE LABEL COMMENTS 03/08/20 14:45 03/08/20 18:49 DC Diphenhydramine HCl (Benadryl) 25 mg Q6HP PRN PO ITCHING 03/18/20 12:15 03/19/20 00:06 Docusate Sodium (Colace) 100 mg TID PO 03/08/20 16:00 03/08/20 18:49 DC 03/08/20 17:31 Doxycycline Hyclate (Vibramycin) 100 mg BID PO 03/15/20 13:00 03/21/20 21:01 03/19/20 09:31 Enoxaparin Sodium (Lovenox) 40 mg DAILY SC 03/09/20 09:00 03/19/20 09:33 Finasteride (Proscar) 5 mg DAILY PO 03/09/20 09:00 03/19/20 09:31 Gabapentin (Neurontin) 100 mg BID PO 03/11/20 21:00 03/19/20 09:33 Gabapentin (Neurontin) 300 mg BID PO 03/08/20 21:00 03/11/20 11:40 DC 03/11/20 08:46 Glucagon (Glucagon) 1 mg ASDIRECTED PRN SC SEE LABEL COMMENTS 03/08/20 14:45 03/08/20 18:49 DC Glucose (Glucose) 16 GM ASDIRECTED PRN PO SEE LABEL COMMENTS 03/08/20 14:45 03/08/20 18:49 DC Home Med (Med Rec Complete!) ASDIRECTED XX 03/08/20 16:15 03/08/20 16:16 DC Insulin Detemir (Levemir Insulin) 8 units QHS SC 03/12/20 21:00 03/12/20 16:27 DC Insulin Detemir (Levemir Insulin) 10 units DAILY SC 03/10/20 09:00 03/10/20 17:34 DC 03/10/20 07:52 Insulin Detemir (Levemir Insulin) 10 units QHS SC 03/08/20 21:00 03/10/20 09:44 DC 03/09/20 22:00 Insulin Detemir (Levemir Insulin) 14 units DAILY SC 03/11/20 09:00 03/12/20 16:27 DC 03/11/20 08:45 Insulin Detemir (Levemir Insulin) 14 units QHS SC 03/10/20 21:00 03/12/20 08:51 DC 03/10/20 20:50 Insulin Human Lispro (HumaLOG INSULIN) SEE PROTOCOL TABLE AC SC 03/08/20 17:30 03/12/20 16:27 DC 03/11/20 18:06 Insulin Human Lispro (HumaLOG INSULIN) SEE PROTOCOL TABLE QHS SC 03/08/20 21:00 03/12/20 16:27 DC 03/10/20 20:49 Insulin Human Lispro (HumaLOG INSULIN) To use for pt. own insu... ASDIRECTED PRN SC SEE LABEL COMMENTS 03/13/20 01:30 Ketoconazole (Nizoral) APPLY SPARINGLY ... BID TOP 03/08/20 21:00 03/19/20 09:35 Lactobacillus Acidophilus (Bacid) 1 ea WMHS PO 03/08/20 18:00 03/19/20 09:32 Latanoprost (Xalatan 0.005% Op Soln) 1 drop QHS OS 03/08/20 21:00 03/18/20 20:53 Levofloxacin (Levaquin) 250 mg DAILY@06 PO 03/08/20 06:00 03/08/20 16:42 DC Levofloxacin (Levaquin) 250 mg DAILY@1800 PO 03/08/20 18:00 03/15/20 09:55 DC 03/14/20 17:54 Lidocaine (Lidoderm Patch) 1 patch DAILY TD 03/11/20 09:00 03/19/20 09:34 Non-Formulary Medication ( See Comment Field Below ) REMOVE LIDODERM PATCH DAILY@21 XX 03/11/20 21:00 03/18/20 20:53 Oxycodone HCl (Roxicodone, Oxyir) 2.5 mg Q4HP PRN PO PAIN 03/09/20 11:00 03/18/20 07:10 Oxycodone HCl (Roxicodone, Oxyir) 5 mg Q4HP PRN PO PAIN 03/08/20 14:45 03/08/20 18:49 DC Oxycodone/ Acetaminophen (Percocet 5mg/ 325mg Tablet) 1 tab Q4HP PRN PO MODERATE PAIN (PS 5-7) 03/08/20 22:00 03/09/20 11:02 DC 03/09/20 09:43 Pantoprazole Sodium (Protonix) 40 mg BID PO 03/08/20 21:00 03/19/20 09:31 Patient Own Medication (Patient'S Own Med) Insulin Apart (Noval... 6XD SQ 03/12/20 21:00 03/12/20 20:35 DC Prednisone (Deltasone) 3 mg DAILY PO 03/09/20 09:00 03/19/20 09:31 Prednisone (Deltasone) 5 mg DAILY PO 03/09/20 09:00 03/19/20 09:34 Pyridostigmine [place] (Mestinon) 15 mg TID PO 03/15/20 14:00 03/19/20 09:32 Senna (Senokot) 1 tab QHS PO 03/08/20 21:00 03/18/20 20:52 Sodium Biphosphate/ Sodium Phosphate (Fleet Enema) 1 ea DAILYPRN PRN [place] CONSTIPATION 03/08/20 14:45 03/08/20 18:49 DC Tamsulosin HCl (Flomax) 0.4 mg DAILY PO 03/09/20 09:00 03/09/20 11:02 DC 03/09/20 09:06 Tamsulosin HCl (Flomax) 0.4 mg QHS PO 03/10/20 21:00 03/18/20 20:52 JORGE A RIOJAS MD Mar 19, 2020 10:35
[2020-03-19 14:00] VITALS: BP 110/53
[2020-03-19 20:00] VITALS: BP 102/55
[2020-03-19] MEDS: SENNA 8.6 MG TAB (SENOKOT) PO SCH (21:10)
[2020-03-19] MEDS: TAMSULOSIN 0.4 MG CAP PO SCH (21:10)
[2020-03-19] MEDS: LATANOPROST 0.005% OPHTH SOLN 2.5 ML OS SCH (21:11)
[2020-03-19] MEDS: **NOTE PATIENT COMMENT** MISC XX SCH (21:12)
[2020-03-20 05:42] VITALS: BP 148/70
[2020-03-20] MEDS: diphenhydrAMINE 25MG CAP PO PRN ×2 (08:37→22:19)
[2020-03-20] MEDS: GABAPENTIN 100 MG CAP PO SCH ×2 (08:45→20:55)
[2020-03-20] MEDS: ASPIRIN 81 MG ENTERIC TAB PO SCH (08:45)
[2020-03-20] MEDS: FINASTERIDE 5 MG TAB PO SCH (08:45)
[2020-03-20] MEDS: predniSONE 1 MG TAB PO SCH (08:45)
[2020-03-20] MEDS: CLOPIDOGREL 75 MG TAB PO SCH (08:45)
[2020-03-20] MEDS: DOXYCYCLINE HYCLATE 100MG TABLET PO SCH ×2 (08:45→20:55)
[2020-03-20] MEDS: CitaloPRAM (CeleXA) 20 MG TAB PO SCH (08:45)
[2020-03-20] MEDS: ACETAMINOPHEN 500 MG TAB PO SCH ×3 (08:45→20:57)
[2020-03-20] MEDS: BISACODYL 5 MG TAB PO SCH (08:45)
[2020-03-20] MEDS: ATORVASTATIN 20 MG TAB PO SCH (08:45)
[2020-03-20] MEDS: PANTOPRAZOLE 40MG TAB (PROTONIX) PO SCH ×2 (08:45→20:57)
[2020-03-20] MEDS: LACTOBACILLUS ACIDOPHILUS CAP (BACID) PO SCH ×4 (08:45→20:55)
[2020-03-20] MEDS: ENOXAPARIN 40MG/0.4ML SYRINGE (J1650 PER 10MG) SC SCH (08:46)
[2020-03-20] MEDS: PYRIDOSTIGMINE 60 MG TAB PO SCH ×3 (08:46→21:09)
[2020-03-20] MEDS: BRIMONIDINE 0.1% OPHTH SOLN 5 ML OS SCH ×2 (08:46→20:55)
[2020-03-20] MEDS: LIDOCAINE 5% (LIDODERM) PATCH TD SCH (08:46)
[2020-03-20] MEDS: KETOCONAZOLE 2% CREAM TOP SCH ×2 (08:47→20:54)
[2020-03-20] MEDS: predniSONE 5 MG TAB PO SCH (08:48)
[2020-03-20 14:00] VITALS: BP 119/56
[2020-03-20 20:00] VITALS: BP 118/57
[2020-03-20] MEDS: LATANOPROST 0.005% OPHTH SOLN 2.5 ML OS SCH (20:54)
[2020-03-20] MEDS: TAMSULOSIN 0.4 MG CAP PO SCH (20:55)
[2020-03-20] MEDS: SENNA 8.6 MG TAB (SENOKOT) PO SCH (20:55)
[2020-03-20] MEDS: **NOTE PATIENT COMMENT** MISC XX SCH (20:59)
[2020-03-21 05:41] VITALS: BP 144/78
[2020-03-21] MEDS: GABAPENTIN 100 MG CAP PO SCH ×2 (07:31→20:18)
[2020-03-21] MEDS: DOXYCYCLINE HYCLATE 100MG TABLET PO SCH ×2 (07:32→20:18)
[2020-03-21] MEDS: ACETAMINOPHEN 500 MG TAB PO SCH ×3 (07:32→20:20)
[2020-03-21] MEDS: CitaloPRAM (CeleXA) 20 MG TAB PO SCH (07:32)
[2020-03-21] MEDS: PYRIDOSTIGMINE 60 MG TAB PO SCH ×3 (07:32→20:19)
[2020-03-21] MEDS: ASPIRIN 81 MG ENTERIC TAB PO SCH (07:32)
[2020-03-21] MEDS: BISACODYL 5 MG TAB PO SCH (07:32)
[2020-03-21] MEDS: PANTOPRAZOLE 40MG TAB (PROTONIX) PO SCH ×2 (07:32→20:18)
[2020-03-21] MEDS: FINASTERIDE 5 MG TAB PO SCH (07:32)
[2020-03-21] MEDS: predniSONE 5 MG TAB PO SCH (07:32)
[2020-03-21] MEDS: LACTOBACILLUS ACIDOPHILUS CAP (BACID) PO SCH ×4 (07:32→20:18)
[2020-03-21] MEDS: predniSONE 1 MG TAB PO SCH (07:32)
[2020-03-21] MEDS: diphenhydrAMINE 25MG CAP PO PRN ×2 (07:32→20:20)
[2020-03-21] MEDS: ATORVASTATIN 20 MG TAB PO SCH (07:32)
[2020-03-21] MEDS: CLOPIDOGREL 75 MG TAB PO SCH (07:32)
[2020-03-21] MEDS: LIDOCAINE 5% (LIDODERM) PATCH TD SCH (07:33)
[2020-03-21] MEDS: ENOXAPARIN 40MG/0.4ML SYRINGE (J1650 PER 10MG) SC SCH (07:33)
[2020-03-21] MEDS: BRIMONIDINE 0.1% OPHTH SOLN 5 ML OS SCH ×2 (07:33→20:20)
[2020-03-21] MEDS: KETOCONAZOLE 2% CREAM TOP SCH ×2 (09:00→20:20)
[2020-03-21 14:00] VITALS: BP 120/57
[2020-03-21 20:16] VITALS: BP 136/60
[2020-03-21] MEDS: TAMSULOSIN 0.4 MG CAP PO SCH (20:18)
[2020-03-21] MEDS: SENNA 8.6 MG TAB (SENOKOT) PO SCH (20:18)
[2020-03-21] MEDS: LATANOPROST 0.005% OPHTH SOLN 2.5 ML OS SCH (20:20)
[2020-03-21] MEDS: **NOTE PATIENT COMMENT** MISC XX SCH (20:21)
[2020-03-22 05:45] VITALS: BP 114/55
[2020-03-22 07:01] LABS: BASO # 0.1 10^3/uL (0.0-0.2); EOS # 0.2 10^3/uL (0.0-0.5); EOS % 3.4 % (0.0-3.0); HEMATOCRIT 31.5 % (42.0-52.0); HEMOGLOBIN 10.1 g/dl (13.5-17.5); LYMPH # 2.4 10^3/uL (1.5-5.0); LYMPH % 39.6 % (24.0-44.0); MEAN CORPUSCULAR HEMOGLOBIN 30.5 pg (27.0-33.0); MEAN CORPUSCULAR HGB CONC 32.1 g/dl (32.0-36.5); MEAN CORPUSCULAR VOLUME 95.2 fl (80.0-96.0); MONO # 0.6 10^3/uL (0.0-0.8); MONO % 9.9 % (0.0-5.0); NEUTROPHILS # 2.7 10^3/uL (1.5-8.5); NEUTROPHILS % 45.1 % (36.0-66.0); PLATELET COUNT, AUTOMATED 399 10^3/uL (150-450); RED BLOOD COUNT 3.31 10^6/uL (4.30-6.10); WHITE BLOOD COUNT 5.9 10^3/uL (4.0-10.0)
[2020-03-22 07:33] LABS: BLOOD UREA NITROGEN 32 MG/DL (7-18); CALCIUM LEVEL 9.2 MG/DL (8.8-10.2); CARBON DIOXIDE LEVEL 30 MEQ/L (21-32); CHLORIDE LEVEL 108 MEQ/L (98-107); CREATININE FOR GFR 1.17 MG/DL (0.70-1.30); GLOMERULAR FILTRATION RATE > 60.0 (>49); GLUCOSE, FASTING 76 MG/DL (70-100); POTASSIUM SERUM 4.3 MEQ/L (3.5-5.1); SODIUM LEVEL 141 MEQ/L (136-145)
[2020-03-22] MEDS: PYRIDOSTIGMINE 60 MG TAB PO SCH ×3 (09:00→21:48)
[2020-03-22] MEDS: KETOCONAZOLE 2% CREAM TOP SCH ×2 (09:00→21:00)
[2020-03-22] MEDS: ATORVASTATIN 20 MG TAB PO SCH (09:09)
[2020-03-22] MEDS: CLOPIDOGREL 75 MG TAB PO SCH (09:09)
[2020-03-22] MEDS: FINASTERIDE 5 MG TAB PO SCH (09:09)
[2020-03-22] MEDS: PANTOPRAZOLE 40MG TAB (PROTONIX) PO SCH ×2 (09:09→21:48)
[2020-03-22] MEDS: LACTOBACILLUS ACIDOPHILUS CAP (BACID) PO SCH ×4 (09:10→21:47)
[2020-03-22] MEDS: BISACODYL 5 MG TAB PO SCH (09:10)
[2020-03-22] MEDS: predniSONE 5 MG TAB PO SCH (09:10)
[2020-03-22] MEDS: GABAPENTIN 100 MG CAP PO SCH ×2 (09:10→21:47)
[2020-03-22] MEDS: CitaloPRAM (CeleXA) 20 MG TAB PO SCH (09:11)
[2020-03-22] MEDS: predniSONE 1 MG TAB PO SCH (09:11)
[2020-03-22] MEDS: ASPIRIN 81 MG ENTERIC TAB PO SCH (09:11)
[2020-03-22] MEDS: ACETAMINOPHEN 500 MG TAB PO SCH ×3 (09:12→21:47)
[2020-03-22] MEDS: ENOXAPARIN 40MG/0.4ML SYRINGE (J1650 PER 10MG) SC SCH (09:12)
[2020-03-22] MEDS: LIDOCAINE 5% (LIDODERM) PATCH TD SCH (09:13)
[2020-03-22] MEDS: BRIMONIDINE 0.1% OPHTH SOLN 5 ML OS SCH ×2 (09:14→21:49)
--- NOTE | 2020-03-22 12:49 | IPNPDOC ---
PM&R Progress Note DATE OF SERVICE: Mar 22, 2020 Customer Marketing Manager Progress Note Subjective: Patient seen in therapy stating his rash feels much better, he no longer feels dizzy, and he thinks he will be able to safely begin room privileges tomorrow. REVIEW OF SYSTEMS: The following is a completed review of systems and has been reviewed. Review of systems otherwise unremarkable. PAIN: Patient self reports right limb pain and neck pain EYES: No recent vision changes EARS, NOSE, & THROAT: No throat pain, or dysphagia, or rhinorrhea CARDIOVASCULAR: Denies chest pain or palpitations PULMONARY:Denies shortness of breath GASTROINTESTINAL: denies constipation/diarrhea GENITOURINARY: +urinary retention resolved MUSCULOSKELETAL: s/p right BKA NEUROLOGICAL:denies paresthesias HEMATOLOGICAL: +anemia SKIN: right BKA incision, back rash (resolved) PSYCHIATRIC: Unremarkable All other review of systems found to be negative. PHYSICAL EXAMINATION: VITAL SIGNS: Please see below. GENERAL: Pleasant and cooperative. No acute distress. HEENT: PERRL. Extraocular movements intact. Clear conjunctiva CARDIOVASCULAR: Regular rate and rhythm. No murmurs, rubs, or gallops LUNGS: Clear to auscultation bilaterally. No wheezes. No rhonchi ABDOMEN: Soft, nontender, nondistended. Positive bowel sounds. Normal active bowel sounds NEUROLOGICAL: Alert and oriented times three. Cranial nerves II through XII grossly intact. Sensation grossly intact EXTREMITIES: 5/5 strength bilateral upper extremities. 5/5 bilat hip flexor and knee flexor/extension SKIN: right residual limb incision c/d/i, no hematoma, +pretibial erythema and mild stump erythema (improving) ASSESSMENT:59-year-old M with past medical history of DM1 and PVD who presents status post right BKA PLAN: 1. rehab- PT/OT advance mobility, ADLs, strengthen/stretch/maintain ROM, teach limb care/maintenance 2. Neuro- peripheral polyneuropathy in setting of DM and PVD contributing to mob ility impairments- optimize glucose control 3. CArdiac/Vas- hx of PVD with left BKA in the past now s/p right BKA 03-03-20, c/u ASa and Plavix in addition to statin -vascular consulted, c/u wound care, monitor for infection, s/p course of doxycycline to cover MRSA, patient instructed NOT to wear knee immobilizer as causing irritation, concern for cellulitis (improving) -orthostatics- improved suspect autonomic BP impairment due to longstanding DM contributing to orthostatics, c/u Mestinon 15mg TID- patient reporting he c/u to not feel dizzy 4. Resp- encourage incentive spirometry, monitor for infection 5. Heme- post-op anemia, s/p 1unit prbc 03-09-20-stable 6. Endo- hx of DM1, c/u Insulin coverage-patient using his own pump, recording gluocse levels q4h for charting, hypoglycemic protocol in place -Adrenal insufficiency, c/u daily prednisone 7. GI ppx- protonix BID 8. DVT ppx- lovenox 9. Pain- tylenol and oxycodone, c/u Gabapentin (dose lowered to 100mg BID) -lidoderm to neck for cervical pain, patient encouraged to work on neck extensor exercises while lying prone in therapy 10. - hx of BPH on proscar, c/u flomax, voiding well 11. Skin- rash on back on rash improving 12. DIspo- 03-24-20 to home, progressing towards goals, patient approaching room privileges for safer discharge to home Allergies Coded Allergies: No Known Allergies (Unverified , 03/01/20) Vital Signs Vital Signs Date Time Temp Pulse Resp B/P (MAP) Pulse Ox O2 Delivery O2 Flow Rate FiO2 03/22/20 05:45 98.4 60 18 114/55 (74) 98 Room Air Laboratory Data CBC/BMP Laboratory Tests 03/22/20 06:32 Labs 24H Laboratory Tests 2 03/22/20 06:32: Immature Granulocyte % (Auto) 1.0, Neutrophils (%) (Auto) 45.1, Lymphocytes (%) (Auto) 39.6, Monocytes (%) (Auto) 9.9H, Eosinophils (%) (Auto) 3.4H, Basophils (%) (Auto) 1.0, Neutrophils # (Auto) 2.7, Lymphocytes # (Auto) 2.4, Monocytes # (Auto) 0.6, Eosinophils # (Auto) 0.2, Basophils # (Auto) 0.1, Nucleated Red Bloo d Cells % (auto) 0.0, Anion Gap 3L, Glomerular Filtration Rate > 60.0, Calcium Level 9.2 Current Medications Current Medications Current Medications Medications (Trade) Dose Ordered Sig/Vladimir Route PRN Reason Start Time Stop Time Status Last Admin Dose Admin Acetaminophen (Tylenol Tab) 1,000 mg TID PO 03/08/20 16:00 03/08/20 18:49 DC 03/08/20 17:31 Acetaminophen (Tylenol Tab) 1,000 mg TID PO 03/09/20 16:00 03/22/20 09:12 Aspirin (Ecotrin) 81 mg DAILY PO 03/09/20 09:00 03/22/20 09:11 Atorvastatin Calcium (Lipitor) 40 mg DAILY PO 03/09/20 09:00 03/22/20 09:09 Bisacodyl (Dulcolax Tab) 5 mg DAILY PO 03/09/20 09:00 03/22/20 09:10 Brimonidine Tartrate (Alphagan P 0.1%) 1 drop BID OS 03/08/20 21:00 03/22/20 09:14 Citalopram Hydrobromide (CeleXA) 40 mg DAILY PO 03/09/20 09:00 03/22/20 09:11 Clopidogrel Bisulfate (PLAVix) 75 mg DAILY PO 03/09/20 09:00 03/22/20 09:09 Dextrose (Dextrose 50%) 25 ml ASDIRECTED PRN IV SEE LABEL COMMENTS 03/08/20 14:45 03/08/20 18:49 DC Diphenhydramine HCl (Benadryl) 25 mg Q6HP PRN PO ITCHING 03/18/20 12:15 03/21/20 20:20 Docusate Sodium (Colace) 100 mg TID PO 03/08/20 16:00 03/08/20 18:49 DC 03/08/20 17:31 Doxycycline Hyclate (Vibramycin) 100 mg BID PO 03/15/20 13:00 03/21/20 21:01 DC 03/21/20 20:18 Enoxaparin Sodium (Lovenox) 40 mg DAILY SC 03/09/20 09:00 03/22/20 09:12 Finasteride (Proscar) 5 mg DAILY PO 03/09/20 09:00 03/22/20 09:09 Gabapentin (Neurontin) 100 mg BID PO 03/11/20 21:00 03/22/20 09:10 Gabapentin (Neurontin) 300 mg BID PO 03/08/20 21:00 03/11/20 11:40 DC 03/11/20 08:46 Glucagon (Glucagon) 1 mg ASDIRECTED PRN SC SEE LABEL COMMENTS 03/08/20 14:45 03/08/20 18:49 DC Glucose (Glucose) 16 GM ASDIRECTED PRN PO SEE LABEL COMMENTS 03/08/20 14:45 03/08/20 18:49 DC Home Med (Med Rec Complete!) ASDIRECTED XX 03/08/20 16:15 03/08/20 16:16 DC Insulin Detemir (Levemir Insulin) 8 units QHS SC 03/12/20 21:00 03/12/20 16:27 DC Insulin Detemir (Levemir Insulin) 10 units DAILY SC 03/10/20 09:00 03/10/20 17:34 DC 03/10/20 07:52 Insulin Detemir (Levemir Insulin) 10 units QHS SC 03/08/20 21:00 03/10/20 09:44 DC 03/09/20 22:00 Insulin Detemir (Levemir Insulin) 14 units DAILY SC 03/11/20 09:00 03/12/20 16:27 DC 03/11/20 08:45 Insulin Detemir (Levemir Insulin) 14 units QHS SC 03/10/20 21:00 03/12/20 08:51 DC 03/10/20 20:50 Insulin Human Lispro (HumaLOG INSULIN) SEE PROTOCOL TABLE AC SC 03/08/20 17:30 03/12/20 16:27 DC 03/11/20 18:06 Insulin Human Lispro (HumaLOG INSULIN) SEE PROTOCOL TABLE QHS SC 03/08/20 21:00 03/12/20 16:27 DC 03/10/20 20:49 Insulin Human Lispro (HumaLOG INSULIN) To use for pt. own insu... ASDIRECTED PRN SC SEE LABEL COMMENTS 03/13/20 01:30 Ketoconazole (Nizoral) APPLY SPARINGLY ... BID TOP 03/08/20 21:00 03/19/20 09:35 Lactobacillus Acidophilus (Bacid) 1 ea WMHS PO 03/08/20 18:00 03/22/20 12:10 Latanoprost (Xalatan 0.005% Op Soln) 1 drop QHS OS 03/08/20 21:00 03/21/20 20:20 Levofloxacin (Levaquin) 250 mg DAILY@06 PO 03/08/20 06:00 03/08/20 16:42 DC Levofloxacin (Levaquin) 250 mg DAILY@1800 PO 03/08/20 18:00 03/15/20 09:55 DC 03/14/20 17:54 Lidocaine (Lidoderm Patch) 1 patch DAILY TD 03/11/20 09:00 03/22/20 09:13 Miscellaneous (Unresolved Clarification Entry) SEE LABEL COMMENTS DAILY XX 03/21/20 09:00 03/21/20 13:04 DC Non-Formulary Medication ( See Comment Field Below ) REMOVE LIDODERM PATCH DAILY@21 XX 03/11/20 21:00 03/21/20 20:21 Oxycodone HCl (Roxicodone, Oxyir) 2.5 mg Q4HP PRN PO PAIN 03/09/20 11:00 03/18/20 07:10 Oxycodone HCl (Roxicodone, Oxyir) 5 mg Q4HP PRN PO PAIN 03/08/20 14:45 03/08/20 18:49 DC Oxycodone/ Acetaminophen (Percocet 5mg/ 325mg Tablet) 1 tab Q4HP PRN PO MODERATE PAIN (PS 5-7) 03/08/20 22:00 03/09/20 11:02 DC 03/09/20 09:43 Pantoprazole Sodium (Protonix) 40 mg BID PO 03/08/20 21:00 03/22/20 09:09 Patient Own Medication (Patient'S Own Med) Insulin Apart (Noval... 6XD SQ 03/12/20 21:00 03/12/20 20:35 DC Prednisone (Deltasone) 3 mg DAILY PO 03/09/20 09:00 03/22/20 09:11 Prednisone (Deltasone) 5 mg DAILY PO 03/09/20 09:00 03/22/20 09:10 Pyridostigmine [place] (Mestinon) 15 mg TID PO 03/15/20 14:00 03/22/20 12:37 Senna (Senokot) 1 tab QHS PO 03/08/20 21:00 03/21/20 20:18 Sodium Biphosphate/ Sodium Phosphate (Fleet Enema) 1 ea DAILYPRN PRN SD CONSTIPATION 03/08/20 14:45 03/08/20 18:49 DC Tamsulosin HCl (Flomax) 0.4 mg DAILY PO 03/09/20 09:00 03/09/20 11:02 DC 03/09/20 09:06 Tamsulosin HCl (Flomax) 0.4 mg QHS PO 03/10/20 21:00 03/21/20 20:18 JORGE A RIOJAS MD Mar 22, 2020 12:49
[2020-03-22 14:00] VITALS: BP 101/53
[2020-03-22 21:00] VITALS: BP 129/67
[2020-03-22] MEDS: TAMSULOSIN 0.4 MG CAP PO SCH (21:46)
[2020-03-22] MEDS: SENNA 8.6 MG TAB (SENOKOT) PO SCH (21:47)
[2020-03-22] MEDS: LATANOPROST 0.005% OPHTH SOLN 2.5 ML OS SCH (21:48)
[2020-03-22] MEDS: **NOTE PATIENT COMMENT** MISC XX SCH (21:49)
[2020-03-23 06:00] VITALS: BP 162/62
[2020-03-23] MEDS: ENOXAPARIN 40MG/0.4ML SYRINGE (J1650 PER 10MG) SC SCH (07:57)
[2020-03-23] MEDS: LIDOCAINE 5% (LIDODERM) PATCH TD SCH (07:57)
[2020-03-23] MEDS: CLOPIDOGREL 75 MG TAB PO SCH (07:58)
[2020-03-23] MEDS: predniSONE 5 MG TAB PO SCH (07:59)
[2020-03-23] MEDS: ASPIRIN 81 MG ENTERIC TAB PO SCH (07:59)
[2020-03-23] MEDS: ACETAMINOPHEN 500 MG TAB PO SCH ×3 (07:59→21:45)
[2020-03-23] MEDS: CitaloPRAM (CeleXA) 20 MG TAB PO SCH (07:59)
[2020-03-23] MEDS: FINASTERIDE 5 MG TAB PO SCH (07:59)
[2020-03-23] MEDS: LACTOBACILLUS ACIDOPHILUS CAP (BACID) PO SCH ×4 (08:00→21:45)
[2020-03-23] MEDS: ATORVASTATIN 20 MG TAB PO SCH (08:00)
[2020-03-23] MEDS: BISACODYL 5 MG TAB PO SCH (08:00)
[2020-03-23] MEDS: predniSONE 1 MG TAB PO SCH (08:00)
[2020-03-23] MEDS: PANTOPRAZOLE 40MG TAB (PROTONIX) PO SCH ×2 (08:01→21:42)
[2020-03-23] MEDS: GABAPENTIN 100 MG CAP PO SCH ×2 (08:01→21:45)
[2020-03-23] MEDS: PYRIDOSTIGMINE 60 MG TAB PO SCH ×3 (08:01→21:43)
[2020-03-23] MEDS: BRIMONIDINE 0.1% OPHTH SOLN 5 ML OS SCH ×2 (08:02→21:45)
[2020-03-23] MEDS: KETOCONAZOLE 2% CREAM TOP SCH ×4 (08:02→21:46)
[2020-03-23] MEDS ORDERED: PANT40TA29 PO (09:30)
[2020-03-23] MEDS ORDERED: ATOR40TA75 PO (09:30)
[2020-03-23] MEDS ORDERED: FINA5TAB2 PO (09:30)
[2020-03-23] MEDS ORDERED: ASPI81TA24 PO (09:30)
[2020-03-23] MEDS ORDERED: PRED5TA PO (09:30)
[2020-03-23] MEDS ORDERED: PRED1TABL PO (09:30)
[2020-03-23] MEDS ORDERED: CITA40TA4 PO (09:30)
[2020-03-23] MEDS ORDERED: CLOP75TA2 PO (09:30)
[2020-03-23] MEDS ORDERED: FLOM0.4C39 PO (09:30)
[2020-03-23] MEDS ORDERED: MEST60TA PO (09:30)
[2020-03-23] MEDS ORDERED: GABA-1171 PO (09:34)
--- NOTE | 2020-03-23 12:24 | IPNPDOC ---
PM&R Progress Note DATE OF SERVICE: Mar 23, 2020 Physics Technical Officer Progress Note Subjective: Patient stating he feels ready for room privileges and to go home tomorrow. REVIEW OF SYSTEMS: The following is a completed review of systems and has been reviewed. Review of systems otherwise unremarkable. PAIN: Patient self reports right limb pain and neck pain EYES: No recent vision changes EARS, NOSE, & THROAT: No throat pain, or dysphagia, or rhinorrhea CARDIOVASCULAR: Denies chest pain or palpitations PULMONARY:Denies shortness of breath GASTROINTESTINAL: denies constipation/diarrhea GENITOURINARY: +urinary retention resolved MUSCULOSKELETAL: s/p right BKA NEUROLOGICAL:denies paresthesias HEMATOLOGICAL: +anemia SKIN: right BKA incision, back rash (resolved) PSYCHIATRIC: Unremarkable All other review of systems found to be negative. PHYSICAL EXAMINATION: VITAL SIGNS: Please see below. GENERAL: Pleasant and cooperative. No acute distress. HEENT: PERRL. Extraocular movements intact. Clear conjunctiva CARDIOVASCULAR: Regular rate and rhythm. No murmurs, rubs, or gallops LUNGS: Clear to auscultation bilaterally. No wheezes. No rhonchi ABDOMEN: Soft, nontender, nondistended. Positive bowel sounds. Normal active bowel sounds NEUROLOGICAL: Alert and oriented times three. Cranial nerves II through XII grossly intact. Sensation grossly intact EXTREMITIES: 5/5 strength bilateral upper extremities. 5/5 bilat hip flexor and knee flexor/extension SKIN: right residual limb incision c/d/i, no hematoma, +pretibial erythema and mild stump erythema (improving) ASSESSMENT:59-year-old M with past medical history of DM1 and PVD who presents status post right BKA PLAN: 1. rehab- PT/OT advance mobility, ADLs, strengthen/stretch/maintain ROM, teach limb care/maintenance 2. Neuro- peripheral polyneuropathy in setting of DM and PVD contributing to mobility impairments- optimize glucose control 3. CArdiac/Vas- hx of PVD with left BKA in the past now s/p right BKA 12220, c/u ASa and Plavix in addition to statin -vascular consulted, c/u wound care, monitor for infection, s/p 10 day course of doxycycline to cover MRSA, patient instructed NOT to wear knee immobilizer as causing irritation, concern for cellulitis (improving) -orthostatics- improved suspect autonomic BP impairment due to longstanding DM contributing to orthostatics, c/u Mestinon 15mg TID- patient reporting he c/u to not feel dizzy 4. Resp- encourage incentive spirometry, monitor for infection 5. Heme- post-op anemia, s/p 1unit prbc 03-09-20-stable 6. Endo- hx of DM1, c/u Insulin coverage-patient using his own pump, recording glucose levels q4h for charting, hypoglycemic protocol in place -Adrenal insufficiency, c/u daily prednisone 7. GI ppx- protonix BID 8. DVT ppx- lovenox 9. Pain- tylenol and oxycodone, c/u Gabapentin (dose lowered to 100mg BID) -lidoderm to neck for cervical pain, patient encouraged to work on neck extensor exercises while lying prone in therapy 10. - hx of BPH on proscar, c/u flomax, voiding well 11. Skin- rash on back on rash resolved 12. DIspo- 03-24-20 to home, progressing towards goals, patient approaching room privileges for safer discharge to home Allergies Coded Allergies: No Known Allergies (Unverified , 03/01/20) Vital Signs Vital Signs Date Time Temp Pulse Resp B/P (MAP) Pulse Ox O2 Delivery O2 Flow Rate FiO2 03/23/20 06:00 97.8 73 18 162/62 (95) 99 Room Air Current Medications Current Medications Current Medications Medications (Trade) Dose Ordered Sig/Vladimir Route PRN Reason Start Time Stop Time Status Last Admin Dose Admin Acetaminophen (Tylenol Tab) 1,000 mg TID PO 03/08/20 16:00 03/08/20 18:49 DC 03/08/20 17:31 Acetaminophen (Tylenol Tab) 1,000 mg TID PO 03/09/20 16:00 03/23/20 07:59 Aspirin (Ecotrin) 81 mg DAILY PO 03/09/20 09:00 03/23/20 07:59 Atorvastatin Calcium (Lipitor) 40 mg DAILY PO 03/09/20 09:00 03/23/20 08:00 Bisacodyl (Dulcolax Tab) 5 mg DAILY PO 03/09/20 09:00 03/23/20 08:00 Brimonidine Tartrate (Alphagan P 0.1%) 1 drop BID OS 03/08/20 21:00 03/23/20 08:02 Citalopram Hydrobromide (CeleXA) 40 mg DAILY PO 03/09/20 09:00 03/23/20 07:59 Clopidogrel Bisulfate (PLAVix) 75 mg DAILY PO 03/09/20 09:00 03/23/20 07:58 Dextrose (Dextrose 50%) 25 ml ASDIRECTED PRN IV SEE LABEL COMMENTS 03/08/20 14:45 03/08/20 18:49 DC Diphenhydramine HCl (Benadryl) 25 mg Q6HP PRN PO ITCHING 03/18/20 12:15 03/21/20 20:20 Docusate Sodium (Colace) 100 mg TID PO 03/08/20 16:00 03/08/20 18:49 DC 03/08/20 17:31 Doxycycline Hyclate (Vibramycin) 100 mg BID PO 03/15/20 13:00 03/21/20 21:01 DC 03/21/20 20:18 Enoxaparin Sodium (Lovenox) 40 mg DAILY SC 03/09/20 09:00 03/23/20 07:57 Finasteride (Proscar) 5 mg DAILY PO 03/09/20 09:00 03/23/20 07:59 Gabapentin (Neurontin) 100 mg BID PO 03/11/20 21:00 03/23/20 08:01 Gabapentin (Neurontin) 300 mg BID PO 03/08/20 21:00 03/11/20 11:40 DC 03/11/20 08:46 Glucagon (Glucagon) 1 mg ASDIRECTED PRN SC SEE LABEL COMMENTS 03/08/20 14:45 03/08/20 18:49 DC Glucose (Glucose) 16 GM ASDIRECTED PRN PO SEE LABEL COMMENTS 03/08/20 14:45 03/08/20 18:49 DC Home Med (Med Rec Complete!) ASDIRECTED XX 03/08/20 16:15 03/08/20 16:16 DC Insulin Detemir (Levemir Insulin) 8 units QHS SC 03/12/20 21:00 03/12/20 16:27 DC Insulin Detemir (Levemir Insulin) 10 units DAILY SC 03/10/20 09:00 03/10/20 17:34 DC 03/10/20 07:52 Insulin Detemir (Levemir Insulin) 10 units QHS SC 03/08/20 21:00 03/10/20 09:44 DC 03/09/20 22:00 Insulin Detemir (Levemir Insulin) 14 units DAILY SC 03/11/20 09:00 03/12/20 16:27 DC 03/11/20 08:45 Insulin Detemir (Levemir Insulin) 14 units QHS SC 03/10/20 21:00 03/12/20 08:51 DC 03/10/20 20:50 Insulin Human Lispro (HumaLOG INSULIN) SEE PROTOCOL TABLE AC SC 03/08/20 17:30 03/12/20 16:27 DC 03/11/20 18:06 Insulin Human Lispro (HumaLOG INSULIN) [facility] 03/[facility] 21:00 03/12/20 16:27 DC 03/10/20 20:49 Insulin Human Lispro (HumaLOG INSULIN) To use for pt. own insu... ASDIRECTED PRN SC SEE LABEL COMMENTS 03/13/20 01:30 Ketoconazole (Nizoral) APPLY SPARINGLY ... BID TOP 03/08/20 21:00 03/19/20 09:35 Lactobacillus Acidophilus (Bacid) 1 ea WMHS PO 03/08/20 18:00 03/23/20 12:05 Latanoprost (Xalatan 0.005% Op Soln) 1 drop QHS OS 03/08/20 21:00 03/22/20 21:48 Levofloxacin (Levaquin) 250 mg DAILY@06 PO 03/08/20 06:00 03/08/20 16:42 DC Levofloxacin (Levaquin) 250 mg DAILY@1800 PO 03/08/20 18:00 03/15/20 09:55 DC 03/14/20 17:54 Lidocaine (Lidoderm Patch) 1 patch DAILY TD 03/11/20 09:00 03/23/20 07:57 Miscellaneous (Unresolved Clarification Entry) SEE LABEL COMMENTS DAILY XX 03/21/20 09:00 03/21/20 13:04 DC Non-Formulary Medication ( See Comment Field Below ) REMOVE LIDODERM PATCH DAILY@21 XX 03/11/20 21:00 03/22/20 21:49 Oxycodone HCl (Roxicodone, Oxyir) 2.5 mg Q4HP PRN PO PAIN 03/09/20 11:00 03/18/20 07:10 Oxycodone HCl (Roxicodone, Oxyir) 5 mg Q4HP PRN PO PAIN 03/08/20 14:45 03/08/20 18:49 DC Oxycodone/ Acetaminophen (Percocet 5mg/ 325mg Tablet) 1 tab Q4HP PRN PO MODERATE PAIN (PS 5-7) 03/08/20 22:00 03/09/20 11:02 DC 03/09/20 09:43 Pantoprazole Sodium (Protonix) 40 mg BID PO 03/08/20 21:00 03/23/20 08:01 Patient Own Medication (Patient'S Own Med) Insulin Apart (Noval... 6XD SQ 03/12/20 21:00 03/12/20 20:35 DC Prednisone (Deltasone) 3 mg DAILY PO 03/09/20 09:00 03/23/20 08:00 Prednisone (Deltasone) 5 mg DAILY PO 03/09/20 09:00 03/23/20 07:59 Pyridostigmine [place] (Mestinon) 15 mg TID PO 03/15/20 14:00 03/23/20 08:01 Senna (Senokot) 1 tab QHS PO 03/08/20 21:00 03/22/20 21:47 Sodium Biphosphate/ Sodium Phosphate (Fleet Enema) 1 ea DAILYPRN PRN OR CONSTIPATION 03/08/20 14:45 03/08/20 18:49 DC Tamsulosin HCl (Flomax) 0.4 mg DAILY PO 03/09/20 09:00 03/09/20 11:02 DC 03/09/20 09:06 Tamsulosin HCl (Flomax) 0.4 mg QHS PO 03/10/20 21:00 03/22/20 21:46 JORGE A RIOJAS MD Mar 23, 2020 12:24
[2020-03-23 14:00] VITALS: BP 123/60
[2020-03-23] MEDS ORDERED: HumaLOG INSULIN (NovoLOG) PER UNIT SC ONE (15:00)
[2020-03-23 21:00] VITALS: BP 154/75
[2020-03-23] MEDS: LATANOPROST 0.005% OPHTH SOLN 2.5 ML OS SCH (21:45)
[2020-03-23] MEDS: TAMSULOSIN 0.4 MG CAP PO SCH (21:45)
[2020-03-23] MEDS: SENNA 8.6 MG TAB (SENOKOT) PO SCH (21:45)
[2020-03-23] MEDS: **NOTE PATIENT COMMENT** MISC XX SCH (21:46)
[2020-03-24 06:00] VITALS: BP 123/59
[2020-03-24 07:00] LABS: BASO # 0.1 10^3/uL (0.0-0.2); BASO % 0.8 % (0.0-1.0); EOS # 0.2 10^3/uL (0.0-0.5); EOS % 3.2 % (0.0-3.0); HEMATOCRIT 32.8 % (42.0-52.0); HEMOGLOBIN 10.7 g/dl (13.5-17.5); LYMPH # 2.7 10^3/uL (1.5-5.0); LYMPH % 44.1 % (24.0-44.0); MEAN CORPUSCULAR HEMOGLOBIN 30.5 pg (27.0-33.0); MEAN CORPUSCULAR HGB CONC 32.6 g/dl (32.0-36.5); MEAN CORPUSCULAR VOLUME 93.4 fl (80.0-96.0); MONO # 0.6 10^3/uL (0.0-0.8); MONO % 9.6 % (0.0-5.0); NEUTROPHILS # 2.5 10^3/uL (1.5-8.5); NEUTROPHILS % 41.6 % (36.0-66.0); PLATELET COUNT, AUTOMATED 341 10^3/uL (150-450); RED BLOOD COUNT 3.51 10^6/uL (4.30-6.10)
[2020-03-24 07:25] LABS: BLOOD UREA NITROGEN 22 MG/DL (7-18); CALCIUM LEVEL 8.6 MG/DL (8.8-10.2); CARBON DIOXIDE LEVEL 28 MEQ/L (21-32); CHLORIDE LEVEL 108 MEQ/L (98-107); CREATININE FOR GFR 1.02 MG/DL (0.70-1.30); GLOMERULAR FILTRATION RATE > 60.0 (>49); GLUCOSE, FASTING 71 MG/DL (70-100); POTASSIUM SERUM 4.3 MEQ/L (3.5-5.1); SODIUM LEVEL 142 MEQ/L (136-145)
[2020-03-24] MEDS: KETOCONAZOLE 2% CREAM TOP SCH (09:00)
[2020-03-24] MEDS: predniSONE 5 MG TAB PO SCH (09:05)
[2020-03-24] MEDS: PYRIDOSTIGMINE 60 MG TAB PO SCH (09:05)
[2020-03-24] MEDS: predniSONE 1 MG TAB PO SCH (09:05)
[2020-03-24] MEDS: PANTOPRAZOLE 40MG TAB (PROTONIX) PO SCH (09:05)
[2020-03-24] MEDS: ATORVASTATIN 20 MG TAB PO SCH (09:05)
[2020-03-24] MEDS: FINASTERIDE 5 MG TAB PO SCH (09:05)
[2020-03-24] MEDS: BISACODYL 5 MG TAB PO SCH (09:05)
[2020-03-24] MEDS: ACETAMINOPHEN 500 MG TAB PO SCH (09:05)
[2020-03-24] MEDS: GABAPENTIN 100 MG CAP PO SCH (09:05)
[2020-03-24] MEDS: CitaloPRAM (CeleXA) 20 MG TAB PO SCH (09:05)
[2020-03-24] MEDS: LACTOBACILLUS ACIDOPHILUS CAP (BACID) PO SCH ×2 (09:05→12:25)
[2020-03-24] MEDS: ASPIRIN 81 MG ENTERIC TAB PO SCH (09:05)
[2020-03-24] MEDS: CLOPIDOGREL 75 MG TAB PO SCH (09:06)
[2020-03-24] MEDS: ENOXAPARIN 40MG/0.4ML SYRINGE (J1650 PER 10MG) SC SCH (09:06)
[2020-03-24] MEDS: LIDOCAINE 5% (LIDODERM) PATCH TD SCH (09:06)
[2020-03-24] MEDS: BRIMONIDINE 0.1% OPHTH SOLN 5 ML OS SCH (09:06)
== END 2020-03-24 13:54 | disposition home health service (06) | DRG 565 ==
LOC: M PM&R 14:45 → UNDODISIN 16:00
PROVIDERS: ADMIT Physical Medicine & Rehabilitation; ATTEND Physical Medicine & Rehabilitation
DX: T87.43 Infection of amputation stump, right lower extremity (principal); E27.40 Unspecified adrenocortical insufficiency; Z89.611 Acquired absence of right leg above knee; Z89.612 Acquired absence of left leg above knee; M31.6 Other giant cell arteritis; E10.51 Type 1 diabetes mellitus with diabetic peripheral angiopathy without gangrene; R33.9 Retention of urine, unspecified; Z74.09 Other reduced mobility; E10.41 Type 1 diabetes mellitus with diabetic mononeuropathy; D64.9 Anemia, unspecified; Z79.82 Long term (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; Z79.02 Long term (current) use of antithrombotics/antiplatelets; Z79.899 Other long term (current) drug therapy; N40.0 Benign prostatic hyperplasia without lower urinary tract symptoms; R21 Rash and other nonspecific skin eruption; Y83.5 Amputation of limb(s) as the cause of abnormal reaction of the patient, or of later complication, without mention of misadventure at the time of the procedure

== ENCOUNTER 2020-04-12 19:09 | Inpatient (IN) | payer MEDICARE, MEDICAID ==
[~2020-04-12] VITALS: Ht 175.3 cm; Wt 65.0 kg
[~2020-04-12 19:09] MED LIST changes: +GABA-1171 PO; +GABA-282 PO; -GABA-843 PO; +LISI10TA22 PO; -LISI10TA4 PO; -LevoFLOXacin 250 MG TABLET PO SCH; +MEST60TA PO; +METH-1164 PO; -METH1TAB40 PO; +MULT-40 PO
--- OUTSIDE RECORDS SUMMARY | 2020-04-12 19:14 | CCD ---
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 Name Role Phone Pretty Wheatley Unavailable PROBLEMS Type Condition ICD9-CM Code [id number] Code Onset Dates Condition S tatus SNOMED Code Notes Problem Bipolar 1 disorder F31.9 Active 875315649 Problem Autonomic instability G90.9 Active 08423258 Problem Adrenal insufficiency E27.40 Active 751118691 Problem Anemia of chronic disease D63.8 Active 358282 009 Problem History of left below knee amputation Z89.512 Ac tive 590476774 Problem Cataract of both eyes, unspecified cataract type H 26.9 Active 34932617 Problem Chronic gastritis without bleeding, unspecified gastri tis type K29.50 Active 36835978 Problem Chronic obstructive pulmonary disease, unspecified COPD ty pe J44.9 Active 21625337 Problem PVD (peripheral vascular disease) I73.9 Active 232330912 Problem 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 L97.519 Active Problem Type 1 diabetes mellitus with foot ulcer E10.621 Active 727262192796815 Problem Type 1 diabetes mellitus with other specified complication E10.69 Active 21232744 Problem Acquired absence of left leg below knee Z89.512 Active 905013219873872 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 9 Active 1976605462135424 Problem Amputation below knee S88.119A Active 880461301 ALLERGIES No Known Allergies ENCOUNTERS from 1960 to 2020-03-24 [facility] [address] [place] [address], Pretty Wheatley IMMUNIZATIONS Vaccine Route Administration Date Status Influenza (18 yrs & older) Flublok IM Intramuscular Jan 22, 2019 Administered Influenza (18 yrs & older) Flublok IM Intramuscular Dec 27 8 Administered Pneumococcal Adult 0.5mL (Pneumovax 23) IM Intramuscular Mar 02, 2016 Administered Pneumococcal 0.5mL (Prevnar 13) IM Intramuscular Nov 15, 2017 Administered Influenza (6mo & up) Fluzone Unknown Feb 16, 2017 Adm inistered Influenza (6mo & up) Fluzone IM Intramuscular Mar 02, 2016 Ad ministered SOCIAL HISTORY Tobacco Use: Social History Observation Description Date Details (start date - stop date) Former Smoker Sex Assigned At : Social History Observation Description Sex Assigned At Unknown Education: Question Answer Notes Level of Education: High School Language: Question Answer Notes Languages spoken: Maldivian Spiritism: Question Answer Notes Spiritism 08 Holiness Alcohol Screening: Question Answer Notes Did you have a drink containing alcohol in the past year? No Points 0 Interpretation Negative BMI Care Goal Follow-Up Question Answer Notes Above Normal BMI Follow-Up Dietary management educatio n, guidance, and counseling Tobacco Use: Question Answer Notes Are you a: former smoker How long has it been since you last smoked? > 10 years REASON FOR REFERRAL No Information VITAL SIGNS No information MEDICATIONS Medication SIG (Take, Route, Frequency, Duration) Notes Start Da te End Date Status Protonix 40 MG 1 tablet Orally bid July, Not-Taking Aspirin Adult Low Dose 81 MG 1 tablet Orally Once a day Active Finasteride 5 MG 1 tablet Orally Once a day for 30 day(s) Active Proscar 5 MG 1 tablet Orally Once a day for 30 day(s) 19 S 2018 Not-Taking Plavix 75 MG 1 tablet Orally Once a day for 90 day(s) Not-Taking Collagenase 250 UNIT/GM 1 application Externally Once a day Active Mupirocin 2 % 1 application to affected ar ea Externally Three times a day for 5 day(s) Dec, Not-Taking Wheelchair - as directed Jan, Active [place] Active Insulin Syringe 31G X /16 as directed orally tid for 30 day(s) Sep, Not-Taking Misc. Devices - left bk replacement socket and supplies DX: Z89. 512 Dec, Not-Taking Brimonidine Tartrate 0.1 % 1 drop into affected eye Ophthalmic ever y 8 hrs Active Levaquin 500 MG 1 tablet Orally Once a day for 10 day(s) Active Hydrocodone-Acetaminophen 5-325 MG 1 tablet as needed Orally every 6 hrs Active Sucralfate 1 GM 1 tablet on an empty stomach Orally before meals and HS July, Active Atorvastatin Calcium 40MG 1 tablet Orally Once a day for 90 day(s) Active Tramadol HCl 50 MG 1 tablet as needed Orally Once a day Active Acetaminophen 500 MG 1 tablet as needed Orally every 6 hrs prn p ain July, Active Clopidogrel Bisulfate 75 MG 1 tablet Orally Once a day for 30 day(s) Active Pantoprazole Sodium 40 MG 1 tablet Orally bid Active NovoLog 100 UNIT/ML as directed Subcutaneous Ins ulin pump, pump up to 100 units daily July, Not-Taking Chlorhexidine Gluconate - as directed Active PredniSONE 5 MG 1 tablet Orally Once a day for 30 day(s) 0 July, Active Proscar 5 MG 1 tablet Orally Once a day for 90 day(s) 2019 Not-Taking Ketoconazole 2 % 1 application Externally Once a day Active Latanoprost 0.005 % 1 drop into affected eye in the evening Ophthalmic left eye Once a day July, Active Ferrous Sulfate 325 (65 Fe) MG 1 tablet Orally Once a day for 30 Active Misc. Devices - needs functioning left brake on wheelchair Mar, Active Gabapentin 300 MG 1 cap Orally bid for 90 day(s) Active Glucagon Emergency 1 MG Injection A ctive Celexa 40 MG 1 tab Orally Once a day for 90 day(s) Apr, Active Fludrocortisone Acetate 0.1 MG 1 tablet Orally Three times a Week for 30 day(s) Active PROCEDURES No Information RESULTS No Results REASON FOR VISIT Hospital F/U MEDICAL (GENERAL) HISTORY Type Description Date Medical History temporal arteritis Medical History Psoriasis Medical History DVT 10/2016 Medical History bipolar Medical History Adrenal Insufficiency Medical History type 1 diabetes, complicated by diabetic retinopathy, diabetic neuropathy Medical History Mengioma seen 2017, not on repeat image 2018 Medical History Spondylosis of cervical melissa on without myelopathy or radiculopathy Medical History left BKA with prosthesis Medical History PVD Surgical History Fatty tumor removal Surgical History right knee surgery Surgical History Right wrist Surgical History Left Rotator cuff Surgical History Implanted insulin pump Surgical History left BKA Surgical History Cataract 03/2018 Surgical History rt great toe amp 01/2020 Hospitalization History [facility] 10/2016 Hospitalization History hypoglycemia 12/02/2016-12/12/19 17 Hospitalization History autonomic instability 04/02/201707/2017 Hospitalization History hypergycemia 08/04/2019- 0 Goals Section No Information Health Concerns No Information MEDICAL EQUIPMENT No Information MENTAL STATUS No Information FUNCTIONAL STATUS No Information ASSESSMENTS No Information PLAN OF TREATMENT Medication Medication Name Sig Start Date Stop Date Wheelchair - as directed Jan, Misc. Devices - needs functioning left brake on wheelchair 2019 Next Appt Details Provider Name:Sofia Lopez, 02:00:00 PM, [address] [place], [address], Insurance Providers Payer Name Payer Address Payer Phone Insured Name Patient Relati onship to Insured Coverage Start Date Coverage End Date MEDICAID [employer] [address] [facility] [id number] [place] self MEDICARE [facility] [address] [address] [facility] [phone] [place] G[place] self
--- OUTSIDE RECORDS SUMMARY | 2020-04-12 19:14 | CCD ---
Author Author [facility] Organization [facility] Address Unknown Phone Unavailable Care Team Providers Care Telegraph Equipment Maintainer Name Role Phone Manoj Baker Unavailable PROBLEMS Type Condition ICD9-CM Code [id number] Code Onset Dates Condition S tatus SNOMED Code Notes Problem Type 1 diabetes mellitus with complication E10.8 Active 27788044 Problem Essential hypertension I10 Active 76804779 Problem Anemia of chronic disease D63.8 Active 608701 009 Problem Autonomic instability G90.9 Active 12572939 Problem Adrenal insufficiency E27.40 Active 033829332 Problem Bipolar 1 disorder F31.9 Active 021733835 Problem History of left below knee amputation Z89.512 Ac tive 751720171 Problem Cataract of both eyes, unspecified cataract type H 26.9 Active 01011068 Problem Benign prostatic hyperplasia with lower urinary tract symptoms N40.1 Active 660155008362080 Problem 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 9 Active 5580939952412186 Problem Chronic gastritis without bleeding, unspecified gastri tis type K29.50 Active 81319558 Problem Chronic obstructive pulmonary disease, unspecified COPD ty pe J44.9 Active 78111053 Problem Amputation below knee S88.119A Active 225148681 Problem PVD (peripheral vascular disease) I73.9 Active 746876270 Problem Temporal arteritis M31.6 Active 379175386 Problem Type 1 diabetes mellitus with foot ulcer E10.621 Active 081400745977840 Problem Type 1 diabetes mellitus with other specified complication E10.69 Active 44251614 Problem Type 2 diabetes mellitus with foot ulcer E11.621 Active 846955709 Problem 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 Active 901616216 ALLERGIES No Known Allergies ENCOUNTERS from 1960 to 2020-03-05 Encounter Location Date Provider Diagnosis [facility] [place] [address] Jan, Manoj Baker IMMUNIZATIONS Vaccine Route Administration Date Status Influenza [...] School Language: Question Answer Notes Languages spoken: Turkish Synagogue: Question Answer Notes Synagogue 08 Gnosticism Alcohol Screening: Question Answer Notes Did you [...] Notes Start Da te End Date Status Jeanne Active Insulin Syringe 31G X 5/16 as directed orally tid for 30 day(s) Sep, Not-Taking Protonix 40 MG 1 tablet Orally bid July, Not-Taking Aspirin Adult Low Dose 81 MG 1 tablet Orally Once a day Active Finasteride 5 MG 1 tablet Orally Once a day for 30 day(s) Active Brimonidine Tartrate 0.1 % 1 drop into affected eye Ophthalmic ever y 8 hrs Active Levaquin 500 MG 1 tablet Orally Once a day for 10 day(s) Active Mupirocin 2 % 1 application to affected ar ea Externally Three times a day for 5 day(s) Dec, Not-Taking Wheelchair - as directed Jan, Active Hydrocodone-Acetaminophen 5-325 MG 1 tablet as needed Orally every 6 hrs Active Chlorhexidine Gluconate - as directed Active Misc. Devices - left bk replacement socket and supplies DX: Z89. 512 Dec, Not-Taking Proscar 5 MG 1 tablet Orally Once a day for 90 day(s) 05 J 2019 Not-Taking NovoLog 100 UNIT/ML as directed Subcutaneous Ins ulin pump, pump up to 100 units daily July, Not-Taking Sucralfate 1 GM 1 tablet on an empty stomach Orally before meals and HS July, Active Ketoconazole 2 % 1 application Externally Once a day Active Latanoprost 0.005 % 1 drop into affected eye in the evening Ophthalmic left eye Once a day July, Active PredniSONE 5 MG 1 tablet Orally Once a day for 30 day(s) 0 July, Active Ferrous Sulfate 325 (65 Fe) MG 1 tablet Orally Once a day for 30 Active Acetaminophen 500 MG 1 tablet as needed Orally every 6 hrs prn p ain July, Active Clopidogrel Bisulfate 75 MG 1 tablet Orally Once a day for 30 day(s) Active Plavix 75 MG 1 tablet Orally Once a day for 90 day(s) Not-Taking Collagenase 250 UNIT/GM 1 application Externally Once a day Active Pantoprazole Sodium 40 MG 1 tablet Orally bid Active Proscar 5 MG 1 tablet Orally Once a day for 30 day(s) 19 S 2018 Not-Taking Atorvastatin Calcium 40MG 1 tablet Orally Once a day for 90 day(s) Active Tramadol HCl 50 MG 1 tablet as needed Orally Once a day Active Gabapentin 300 MG 1 cap Orally bid for 90 day(s) Active Glucagon Emergency 1 MG Injection A ctive Celexa 40 MG 1 tab Orally Once a day for 90 day(s) Apr, Active Fludrocortisone Acetate 0.1 MG 1 tablet Orally Three times a Week for 30 day(s) Active PROCEDURES No Information RESULTS No Results REASON FOR VISIT Elevated blood sugar MEDICAL (GENERAL) HISTORY Type Description Date Medical History temporal arteritis Medical History Psoriasis Medical History DVT 10/2016 Medical History bipolar Medical History Adrenal Insufficiency Medical History type 1 diabetes, complicated by diabetic retinopathy, diabetic neuropathy Medical History Mengioma seen 2017, not on repeat image 2017 Medical History Spondylosis of cervical melissa on [...] Stop Date Wheelchair - as directed Jan, Insurance Providers Payer Name Payer Address Payer Phone Insured Name Patient Relati onship to Insured Coverage Start Date Coverage End Date MEDICARE COMPLETE [employer] [address] [address] [facility] [id number] SEBASTIEN GARCIA self MEDICAID [facility] [address] [facility] [id number] SEBASTIEN GARCIA self
--- OUTSIDE RECORDS SUMMARY | 2020-04-12 19:14 | CCD ---
Author Author [facility] Organization [facility] Address Unknown Phone Unavailable Care Team Providers Care Director Of Vital Statistics Name Role Phone Christelle Cook Unavailable PROBLEMS Type Condition ICD9-CM Code [id number] Code Onset Dates Condition S tatus SNOMED Code Notes Problem Bipolar 1 disorder F31.9 Active 558739129 Problem Autonomic instability G90.9 Active 94258266 Problem Adrenal insufficiency E27.40 Active 952183240 Problem Anemia of chronic disease D63.8 Active 482053 009 Problem History of left below knee amputation Z89.512 Ac tive 883899836 Problem Cataract of both eyes, unspecified cataract type H 26.9 Active 33237376 Problem Chronic gastritis without bleeding, unspecified gastri tis type K29.50 Active 30962437 Problem Chronic obstructive pulmonary disease, unspecified COPD ty pe J44.9 Active 87698510 Problem PVD (peripheral vascular disease) I73.9 Active 853594023 Problem 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 L97.519 Active Problem Type 1 diabetes mellitus with foot ulcer E10.621 Active 439950433188537 Problem Type 1 diabetes mellitus with other specified complication E10.69 Active 13659595 Problem Acquired absence of left leg below knee Z89.512 Active 495125097023332 Problem 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 9 Active 3400601115411598 Problem Amputation below knee S88.119A Active 975120012 ALLERGIES No Known Allergies ENCOUNTERS from 1960 to 2020-03-31 [facility] [address] [place] [address], Christelle Cook IMMUNIZATIONS Vaccine Route Administration Date Status Influenza [...] School Language: Question Answer Notes Languages spoken: Mauritian Church: Question Answer Notes Church 08 Voodoo Alcohol Screening: Question Answer Notes Did you [...] Not-Taking Wheelchair - as directed Jan, Active Lumigan Active Insulin Syringe 31G X 5/16 as [...] Information RESULTS No Results REASON FOR VISIT OT evaluation MEDICAL (GENERAL) HISTORY Type Description Date Medical [...] Appt Details Provider Name:Sofia Lopez, 02:00:00 PM, [address] [place], [address], Insurance Providers Payer Name Payer Address Payer Phone Insured Name Patient Relati onship to Insured Coverage Start Date Coverage End Date MEDICARE COMPLETE [facility] [address] [address] [facility] [id number] SEBASTEIN GARCIA self [facility] [address] [facility] [address] SEBASTIEN GARCIA self
--- OUTSIDE RECORDS SUMMARY | 2020-04-12 19:14 | CCD | Continuity of Care Document ---
Author Author Hermann SIN [facility] Organization Unknown Address [address], [address] [place] [address] Phone [phone] Care Team Providers Care Appraiser [employer] Name Role Phone Christelle Cook M.D. AUTM [phone] AUTM Unavailable oJb Raphael MD AUTM [phone] [facility] - Medical Records AUTM Kanu Velazquez M.D. AUTM [phone] Problems Active Problems Provider Date Hemorrhage of rectum and anus VICTORIANO Santiago On set: 09/26/2016 Anemia VICTORIANO Santiago Onset: 09/26 Epigastric pain VICTORIANO Santiago Onset: 09/26 Otalgia Shravan Velasquez MD Onset: 09/26/2016 Social History Type Date Description Comments Sex Unknown ETOH Use Denies alcohol use Tobacco Use Start: Unknown Non Smoker Recreational Drug Use Denies Drug Use Smoking Status Reviewed: 04/05/20 Non Smoker Allergies, Adverse Reactions, Alerts Description No Known Drug Allergies Medications Active Medications SIG Qnty Indications Ordering Provide r Date Sucralfate 1GM/10ML Suspension 10 milliliters by mouth after meals, 3 times daily ( if not covered by insurance, please give tablets) 400ml Kanu Velazquez M.D. 0 10/23/2019 Pantoprazole Sodium 40mg Tablets D R twice daily -- one tablet in morning 1/2 hour before breakfast and one tablet prior to bedtime. total course 3 months. 60tabs K22.70 Kanu Laboy ala, M.D. 10/07/2019 BK Prosthesis evaluate and treat for bk prosthesis dx: z89.512 i70.248 Lester Echevarria M.D. 02/13/2018 Ampushield To Left BKA Stump as directed Lester Echevarria M.D. 08/23/2017 Stump Garage Helper To Left BKA as directed Lester Echevarria M.D. 08/23/2017 Referral For Evaluation And Treat To [facility] Lester Echevarria M.D. 08/22/2017 Clopidogrel Bisulfate 75mg Tablets 1 by mouth every day 30tabs Lester Echevarria M.D. 8 Miralax 17gm Packet take 17 gm per dose mixed with 8 ounces of water -- 1 time a day. avoid/ stop if having diarrhea. Unknown Fiber 625mg Tablets use as directed qd Unknown Multivitamin Tablets 1tab po qd Unknown Finasteride 5mg Tablets 1tab po qd Unknown Gabapentin 300mg Capsules 1ca p po bid Unknown Fludrocortisone Acetate 0.1mg Tabl ets every day Unknown Ferrous Sulfate 325(65Fe) mg Table ts 1 by mouth Q Week Unknown Atorvastatin Calcium 40mg Tablets 1 by mouth every day Unknown Prednisone 8mg Tablets daily Unknown Aspir-Low 81mg Tablets DR 1 by mouth every day Unknown Latanoprost 0.005% Solution at bedtime Unknown Novolog 100Unit/ML Solution use in insulin pump as directed Unknown Citalopram Hydrobromide 40mg Table ts daily Unknown Tylenol 325mg Tablets as need ed Unknown Immunizations Description No Information Available Vital Signs Date Vital Result Comment 04/05/2020 9:23am BP Systolic 110 mmHg BP Diastolic 63 mmHg Height 69 inches 5'9" Weight 143.00 lb BMI (Body Mass Index) 21.1 kg/m2 [place] Body Weight 160 lb Weight 64.865 kg BSA (Body Surface Area) 1.79 m2 02/23/2020 1:24pm BP Systolic 126 mmHg BP Diastolic 61 mmHg Heart Rate 85 /min Height 69 inches 5'9" [place] Body Weight 160 lb Results Test Acquired Date Facility Test Result H/L Range Note Laboratory test finding 12/31/2019 [facility] [address], [place] [address] [phone] Bedside Glucose 142 mg/dL High 80-115 Laboratory test finding 12/31/2019 [facility] [address], [place] [address] [phone] Bedside Glucose 131 mg/dL High 80-115 Complete Blood Count 12/17/2019 [facility] enter REGISTRATION [place], [place] [address] [phone] White Blood Count 6.8 10 Normal 4.0-10.0 Red Blood Count 3.47 10 Low 4.30-6.10 Hemoglobin 11.2 g/dL Low 13.5-17.5 Hematocrit 32.8 % Low 42.0-52.0 Mean Corpuscular Volume 94.5 fl Normal 80.0-96.0 Mean Corpuscular Hemoglobin 32.3 pg Normal 27.0-33.0 Mean Corpuscular HGB Conc 34.1 g/dL Normal 32.0-36.5 Red Cell Distribution Width 12.1 % Normal 11.5-14.5 Platelet Count, Automated 214 10 Normal 150-450 Nucleated Red Blood Cell % 0.0 % Normal 0-0 Basic Metabolic Profile 12/17/2019 [facility] REGISTRATION [place], [place] [address] [phone] Glucose, Fasting 158 mg/dL High 70-100 Blood Urea Nitrogen 15 mg/dL Normal 7-18 Creatinine For GFR 1.36 mg/dL High 0.70-1.30 Glomerular Filtration Rate 56.9 Normal >49 1 Sodium Level 139 mEq/L Normal 136-145 Potassium Serum 4.6 mEq/L Normal 3.5-5.1 Chloride Level 105 mEq/L Normal 98-107 Carbon Dioxide Level 27 mEq/L Normal 21-32 Anion Gap 7 mEq/L Low 8-16 Calcium Level 9.3 mg/dL Normal 8.8-10.2 Laboratory test finding 10/08/2019 [facility] [address], [place] [address] [phone] Bedside Glucose 190 mg/dL High 80-115 Laboratory test finding 10/08/2019 [facility] [address], [place] [address] [phone] Bedside Glucose 208 mg/dL High 80-115 Complete Blood Count 10/08/2019 [facility] Main Lab [address], [place] [address] [phone] White Blood Count 7.1 10 Normal 4.0-10.0 Red Blood Count 3.97 10 Low 4.30-6.10 Hemoglobin 12.6 g/dL Low 13.5-17.5 Hematocrit 38.5 % Low 42.0-52.0 Mean Corpuscular Volume 97.0 fl High 80.0-96.0 Mean Corpuscular Hemoglobin 31.7 pg Normal 27.0-33.0 Mean Corpuscular HGB Conc 32.7 g/dL Normal 32.0-36.5 Red Cell Distribution Width 12.1 % Normal 11.5-14.5 Platelet Count, Automated 206 10 Normal 150-450 Nucleated Red Blood Cell % 0.0 % Normal 0-0 Basic Metabolic Profile 10/08/2019 [facility] [address], [place] [address] [phone] Glucose, Fasting 60 mg/dL Low 70-100 Blood Urea Nitrogen 18 mg/dL Normal 7-18 Creatinine For GFR 1.55 mg/dL High 0.70-1.30 Glomerular Filtration Rate 48.9 Low >49 2 Sodium Level 141 mEq/L Normal 136-145 Potassium Serum 4.3 mEq/L Normal 3.5-5.1 Chloride Level 107 mEq/L Normal 98-107 Carbon Dioxide Level 26 mEq/L Normal 21-32 Anion Gap 8 mEq/L Normal 8-16 Calcium Level 9.3 mg/dL Normal 8.8-10.2 1 Units are mL/min/1.73 m2 Chronic Kidney Disease Staging per NKF: Stage I & II GFR >=60 Normal to Mildly Decreased Stage III GFR 30-59 Moderately Decreased Stage IV GFR 15-29 Severely Decreased Stage V GFR <15 Very Little GFR Left ESRD GFR <15 on MANUFACTURING PROJECT MANAGER 2 Units are mL/min/1.73 m2 Chronic Kidney Disease Staging per NKF: Stage I & II GFR >=60 Normal to Mildly Decreased Stage III GFR 30-59 Moderately Decreased Stage IV GFR 15-29 Severely Decreased Stage V GFR <15 Very Little GFR Left ESRD GFR <15 on MANUFACTURING PROJECT MANAGER Procedures Date Code Description Status 03/03/2020 44258 Amputation Below Knee Completed 12/31/2019 16630 Moderate Sedation Se rvices; Same Phys Intl 15 Mins; PT >= 5 Years Completed 12/31/2019 76832 Revascularization,Endovascular W / Transluminal Angioplasty Completed 12/31/2019 16957 Revascularization,Endovascular W /Transluminal Angioplasty Completed 12/31/2019 94845 Revascularization,Endovascular,T ransluminal Angioplasty Completed 10/08/2019 25429 Moderate Sedation Se rvices; Same Phys Intl 15 Mins; PT >= 5 Years Completed 10/08/2019 16104 Revascularization,Endovascular W / Transluminal Angioplasty Completed 10/08/2019 75178 Revascularization,Endovascular W / Transluminal Angioplasty Completed 10/08/2019 90654 Each Intracranial Branch Of The Internal Corotid/Vertebral Completed 10/08/2019 18096 Angiography Internal Corotid Of The Ipsil Intrac Circulation Completed Medical Devices Description No Information Available Encounters Type Date Location Provider Dx Diagnosis Office Visit 02/23/2020 1:30p [facility] Kathy angeles MD 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 K31.5 Obstruction of duodenum K27.7 Chronic peptic ulcer, site u nsp, w/o hemorrhage or perf Office Visit 11/04/2019 11:20a [facility] Perry Raphael MD K27.7 Chronic peptic ulcer, site u nsp, w/o hemorrhage or perf Office Visit 10/16/2019 10:00a [facility] KATERYNA Bowling L97.519 Non-prs chronic ulcer oth prt right foot w unsp severity Z89.512 Acquired absence of left leg below knee I70.235 Athscl habematolel arteries of ri ght leg w ulcer oth prt foot Office Visit 10/07/2019 11:20a [facility] Perry Raphael MD K22.70 Sandoval's esophagus without dysplasia K31.5 Obstruction of duodenum K29.50 Unspecified chronic gastriti s without bleeding Assessments Date Code Description Provider 04/05/2020 Z89.511 Acquired absence of right leg be low knee KATERYNA Painter 04/05/2020 I70.235 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 with ulceration of other part of foot KATERYNA Painter 04/05/2020 Z89.512 Acquired absence of left leg bel ow knee KATERYNA Painter 03/03/2020 I96 Gangrene, not elsewhere classifi ed Kathy Boss MD 02/23/2020 I70.261 Atherosclerosis of n ative arteries of extremities with gangrene, right leg Kathy Boss MD 01/20/2020 I70.235 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 with ulceration of other part of foot KATERYNA Painter 01/20/2020 Z89.512 Acquired absence of left leg bel ow knee KATERYNA Painter 12/31/2019 I70.235 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 with ulceration of other part of foot Kathy Boss MD 12/31/2019 L97.519 Non-pressure chronic ulcer of other part of right foot with unspecified severity Kathy Boss MD 12/17/2019 I70.235 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 with ulceration of other part of foot KATERYNA Painter 12/17/2019 L97.519 Non-pressure chronic ulcer of other part of right foot with unspecified severity KATERYNA Painter 12/17/2019 Z89.512 Acquired absence of left leg bel ow knee KATERYNA Painter 11/05/2019 K31.5 Obstruction of duodenum Adri Velazquez M.D. 11/05/2019 K27.7 Chronic peptic ulcer , site unspecified, without hemorrhage or perforation Kanu Velazquez M.D. 11/04/2019 K27.7 Chronic peptic ulcer , site unspecified, without hemorrhage or perforation Job Raphael MD 10/16/2019 L97.519 Non-pressure chronic ulcer of other part of right foot with unspecified severity KATERYNA Painter 10/16/2019 Z89.512 Acquired absence of left leg bel ow knee KATERYNA Painter 10/16/2019 I70.235 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 with ulceration of other part of foot KATERYNA Painter 10/08/2019 I70.235 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 with ulceration of other part of foot Kathy Boss MD 10/08/2019 L97.519 Non-pressure chronic ulcer of other part of right foot with unspecified severity Kathy Boss MD 10/07/2019 K22.70 Sandoval's esophagus without dysp lasia Job Raphael MD 10/07/2019 K31.5 Obstruction of duodenum Job Raphael MD 10/07/2019 K29.50 Unspecified chronic gastritis wi thout bleeding Job Raphael MD Plan of Treatment Future Appointment(s):* 04/26/2020 1:30 pm - Kanu Velazquez M.D. at [facility] 04/05/2020 - KATERYNA Painter* Z89.511 Acquired absence of right leg below knee * I70.235 Atherosclerosis of habematolel arteries of right leg with ulceration of other part of foot * Z89.512 Acquired absence of left leg below knee Functional Status Description No Information Available Mental Status Description No Information Available Referrals Refer to Dr Reason for Referral Status Appt Date Kanu Velazquez M.D. Closed [address] [facility] [address], [address] [place] [address] [phone]
--- OUTSIDE RECORDS SUMMARY | 2020-04-12 19:14 | CCD | Continuity of Care Document ---
Author Author Hermann BOSS MD Organization Unknown Address [address] [facility], [address] [place] [address] Phone [phone] Care Team Providers Care Rehanger Name Role Phone Christelle Cook M.D. AUTM [phone] AUTM Unavailable Job Raphael MD AUTM [phone] [facility] - Medical Records AUTM Kanu Velazquez M.D. AUTM [phone] Problems Active Problems Provider Date Hemorrhage of rectum and anus VICTORIANO Santiago On set: 09/26/2016 Anemia VICTORIANO Santiago Onset: 09/26 Epigastric pain VICTORIANO Santiago Onset: 09/26 Otalgia Shravan Velasquez MD Onset: 09/26/2016 Social History Type Date Description Comments Sex Unknown ETOH Use Denies alcohol use Tobacco Use Start: Unknown Non Smoker Recreational Drug Use Denies Drug Use Smoking Status Reviewed: 01/20/20 Non Smoker Allergies, Adverse Reactions, Alerts Description [...] as directed Lester Echevarria M.D. 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 08/23/2017 Referral For Evaluation And Treat To [facility] Lester Echevarria M.D. 08/22/2017 Clopidogrel Bisulfate 75mg Tablets 1 by mouth every day 30tabs Lester Echevarria M.D. 8 Hydrocodone Bitartrate/Acetaminophen 5-325mg Tablets Take 1 Tablet By Mouth Twice Daily as Ne eded For Pain . DO Not Exceed 2 Per 24 Hours Unknown Levofloxacin 500mg Tablets Take 1 Tablet By Mouth Once Daily AT Bedtime Unknown 0 Miralax 17gm Packet take 17 gm per [...] Available Vital Signs Date Vital Result Comment 02/23/2020 1:24pm BP Systolic 126 mmHg BP Diastolic 61 mmHg Heart Rate 85 /min Height 69 inches 5'9" [place] Body Weight 160 lb 01/20/2020 10:46am BP Systolic 128 mmHg BP Diastolic 70 mmHg Height 69 inches 5'9" Weight 168.25 lb BMI (Body Mass Index) 24.8 kg/m2 [place] Body Weight 160 lb Weight 76.318 kg BSA (Body Surface Area) 1.92 m2 Results Test Acquired Date Facility Test Result H/L Range Note Complete Blood Count 12/17/[address] [facility] [place] [address] [phone] White Blood Count 6.8 10 Normal 4.0-10.0 [...] % Normal 0-0 Basic Metabolic Profile 12/17/2019 [facility] [place] [address] [phone] Glucose, Fasting 158 mg/dL High 70-100 Blood [...] mg/dL Normal 8.8-10.2 Laboratory test finding 10/08/2019 [facility] Main Lab [address] [place] [address] [phone] Bedside Glucose 190 mg/dL High 80-115 Laboratory test finding 10/08/2019 [facility] Main Lab [address] [place] [address] [phone] Bedside Glucose 208 mg/dL High 80-115 Complete Blood Count 10/08/2019 [facility] Lab [address] [place] [address] [phone] White Blood Count 7.1 10 Normal 4.0-10.0 [...] % Normal 0-0 Basic Metabolic Profile 10/08/2019 [facility] Main Lab [address] [place] [address] [phone] Glucose, Fasting 60 mg/dL Low 70-100 Blood [...] 9.3 mg/dL Normal 8.8-10.2 Laboratory test finding 09/17/2019 [facility] Main Lab [address] [place] [address] [phone] Pathology Request For Service (SEE NOTE) 3 1 Units are mL/min/1.73 m2 Chronic Kidney Disease Staging per NKF: Stage I & II GFR >=60 Normal to Mildly Decreased Stage III GFR 30-59 Moderately Decreased Stage IV GFR 15-29 Severely Decreased Stage V GFR <15 Very Little GFR Left ESRD GFR <15 on SPECIMEN BOSS 2 Units are mL/min/1.73 m2 Chronic Kidney Disease Staging per NKF: Stage I & II GFR >=60 Normal to Mildly Decreased Stage III GFR 30-59 Moderately Decreased Stage IV GFR 15-29 Severely Decreased Stage V GFR <15 Very Little GFR Left ESRD GFR <15 on SPECIMEN BOSS 3 FINAL DIAGNOSIS A - Duodenal bulb, biopsy: Duodenal mucosa without significant pathology. B - Gastric body, biopsy: Oxyntic type gastric mucosa with minimal chronic inflammation and reactive changes. No H.Pylori is seen. C - Lower esophagus, biopsy: Sandoval's Mucosa present. Chronic inflammation. No evidence of premalignant dysplasia. Squamous mucosa with reactive change. 09/18/2019 - 1420 CLINICAL DIAGNOSIS History of upper GI bleed and ulcer 09/17/2019 - 1615 GROSS DIAGNOSIS A - Received in formalin labeled "biopsy duodenal bulb" consists of fragments of tissue, 0.2 x 0.1 x 0.1 cm in aggregate. All in one. B - Received in formalin labeled "biopsy gastric body" consists of two fragments of tissue, 0.2 x 0.1 x 0.1 cm in aggregate. All in one. C - Received in formalin labeled "biopsy lower esophagus, R/O Sandoval's" consists of fragments of tissue, 0.1 x 0.1 x 0.1 cm in aggregate. All in one. -OA 09/17/2019 - 1615 Signed SALINA SAUNDERS MD 09/18/2019 1420 Procedures Date Code Description Status 12/31/2019 97532 Moderate Sedation Se rvices; Same Phys Intl 15 Mins; PT >= 5 Years Completed 12/31/2019 70149 Revascularization,Endovascular W / Transluminal Angioplasty Completed 12/31/2019 19778 Revascularization,Endovascular W /Transluminal Angioplasty Completed 12/31/2019 81092 Revascularization,Endovascular,T ransluminal Angioplasty Completed 10/08/2019 13065 Moderate Sedation Se rvices; Same Phys Intl 15 Mins; PT >= 5 Years Completed 10/08/2019 27597 Revascularization,Endovascular W / Transluminal Angioplasty Completed 10/08/2019 87976 Revascularization,Endovascular W / Transluminal Angioplasty Completed 10/08/2019 85976 Each Intracranial Branch Of The Internal Corotid/Vertebral Completed 10/08/2019 88575 Angiography Internal Corotid Of The Ipsil Intrac Circulation Completed 09/17/2019 95754 Endoscopy Upper GI Biopsy Comple [employer] Description No Information Available Encounters Type Date Location Provider Dx Diagnosis Office Visit 12/17/2019 9:00a [facility] KATERYNA Bowling I70.235 [place] arteries of right leg w ul cer oth prt foot L97.519 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 unsp severity Z89.512 Acquired absence of left leg below knee Office Visit 11/05/2019 11:30a [facility] Brandin Velazquez M.D. 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 K31.5 Obstruction of duodenum K29.50 Unspecified chronic gastriti s without bleeding Office Visit 09/25/2019 1:30p [facility] KATERYNA Bowling L97.519 Non-prs chronic ulcer oth prt right foot w unsp severity Z89.512 Acquired absence of left leg below knee I70.235 [place] arteries of ri ght leg w ulcer oth prt foot Office Visit 09/24/2019 10:00a [facility] KATERYNA Bowling L97.519 Non-prs chronic ulcer oth prt right foot w unsp severity I70.213 [place] arteries of ex trm w intrmt trina, bi legs Z89.512 Acquired absence of left leg below knee Office Visit 09/09/2019 11:35a [facility] Perry Raphael MD D50.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) K25.9 Gastric ulcer, unsp as acute or chronic, w/o hemor or perf Assessments Date Code Description Provider 01/20/2020 I70.235 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 with ulceration of other part of foot KATERYNA Painter 01/20/2020 Z89.512 Acquired absence of left leg bel ow knee KATERYNA Painter 12/31/2019 I70.235 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 with ulceration of other part of foot Kathy oBss MD 12/31/2019 L97.519 Non-pressure chronic ulcer of [...] gastritis wi thout bleeding Job Raphael MD 09/25/2019 L97.519 Non-pressure chronic ulcer of other part of right foot with unspecified severity KATERYNA Painter 09/25/2019 Z89.512 Acquired absence of left leg bel ow knee KATERYNA Painter 09/25/2019 I70.235 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 with ulceration of other part of foot KATERYNA Painter 09/24/2019 L97.519 Non-pressure chronic ulcer of other part of right foot with unspecified severity KATERYNA Painter 09/24/2019 I70.213 Atherosclerosis of [place] arteri es of extremities with inter KATERYNA Painter 09/24/2019 Z89.512 Acquired absence of left leg bel ow knee KATERYNA Painter 09/17/2019 K22.70 Sandoval's esophagus without dysp lasia Job Raphael MD 09/17/2019 K29.50 Unspecified chronic gastritis wi thout bleeding Job Raphael MD 09/09/2019 D50.0 Iron deficiency anemia secondary to blood loss (chronic) Job Raphael MD 09/09/2019 K25.9 Gastric ulcer, unspe cified as acute or chronic, without hemorrhage or perforation Job Raphael MD Plan of Treatment No Information Available Functional Status Description No Information Available Mental Status Description No Information Available Referrals Refer to Dr Reason for Referral Status Appt Date Kanu Velazquez M.D. Closed [address] [facility] [address] [place] [address] [phone] Florencia Dumont P.A. ULCER, RT GREAT TOE. Created [address] [facility] [address] [place] [address] [place] [address] [phone]
--- OUTSIDE RECORDS SUMMARY | 2020-04-12 19:14 | CCD ---
Author Author [facility] Organization [facility] Address Unknown Phone Unavailable Care Team Providers Care Inbound Call Center Representative Name Role Phone Inocente Ledesma Unavailable PROBLEMS Type Condition ICD9-CM Code [id number] Code Onset Dates Condition S tatus SNOMED Code Notes Problem Type 1 diabetes mellitus with complication E10.8 Active 24263197 Problem Essential hypertension I10 Active 70860733 Problem Anemia of chronic disease D63.8 Active 927286 009 Problem Autonomic instability G90.9 Active 29360233 Problem Adrenal insufficiency E27.40 Active 669227296 Problem Bipolar 1 disorder F31.9 Active 940176382 Problem History of left below knee amputation Z89.512 Ac tive 187469689 Problem Cataract of both eyes, unspecified cataract type H 26.9 Active 04894439 Problem Benign prostatic hyperplasia with lower urinary tract symptoms N40.1 Active 727429008215543 Problem 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 9 Active 4239510203132884 Problem Chronic gastritis without bleeding, unspecified gastri tis type K29.50 Active 13153585 Problem Chronic obstructive pulmonary disease, unspecified COPD ty pe J44.9 Active 66092372 Problem Amputation below knee S88.119A Active 979625062 Problem PVD (peripheral vascular disease) I73.9 Active 125814910 Problem Temporal arteritis M31.6 Active 492750531 Problem Type 1 diabetes mellitus with foot ulcer E10.621 Active 541918100585497 Problem Type 1 diabetes mellitus with other specified complication E10.69 Active 55132876 Problem Type 2 diabetes mellitus with foot ulcer E11.621 Active 178351093 Problem 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 Active 985018717 ALLERGIES No Known Allergies ENCOUNTERS from 1960 to 2020-03-10 Encounter Location Date Provider Diagnosis [facility] [address] [place] [address] Jan Inocente Ledesma Type 2 diabetes mellitus with foot ulcer E11.621 and 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 IMMUNIZATIONS Vaccine Route Administration Date Status Influenza [...] School Language: Question Answer Notes Languages spoken: Tanzanian Quaker: Question Answer Notes Quaker 08 Taoist Alcohol Screening: Question Answer Notes Did you [...] REASON FOR REFERRAL No Information VITAL SIGNS Weight 164 lbs Jan, Height 69 in Jan, BMI 24.22 kg/m2 Jan, Heart Rate 90 /min Jan, Respiratory Rate 20 /min Jan, Temperature 97.7 degrees Fahrenheit Jan, Oximetry 96 Jan, Blood pressure systolic 188 mm Hg Jan, Blood pressure diastolic 78 mm Hg Jan, MEDICATIONS Medication SIG (Take, Route, Frequency, Duration) [...] a Week for 30 day(s) Active PROCEDURES from 1960 to 2020-03-10 Procedure Date Ordered Result Body Site LIDOCAINE 4% CREAM TOPICAL 2020-02-23 N/A RESULTS No Results REASON FOR VISIT RLE wound MEDICAL (GENERAL) HISTORY Type Description Date Medical History temporal arteritis Medical History Psoriasis Medical History DVT 10/2016 Medical History bipolar Medical History Adrenal Insufficiency Medical History type 1 diabetes, complicated by diabetic retinopathy, diabetic neuropathy Medical History Mengioma seen 2016, not on repeat image 2017 Medical History [...] No Information FUNCTIONAL STATUS No Information ASSESSMENTS Encounter Date Diagnosis Assessment Notes Treatment Notes Treatm ent Clinical Notes Jan, Type 2 diabetes mellitus with foot ulcer (ICD-10 - E11.621) Patient to follow up with vascular surgery regarding amputation of the right leg. Level of amputation is debatable and unfortunately a below-knee would leave him as a bilateral amputee and may delay any potential future progress. This decision will be made by vascular surgery. A sterling appears to have good venous filling to the level of the ankle and it is quite possible that a forefoot amputation could be tried. 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 Level of amputation is debatable and unfortunately a below-knee would leave him as a bilateral amputee and may delay any potential future progress. This decision will be made by vascular surgery. A sterling appears to have good venous filling to the level of the ankle and it is quite possible that a forefoot amputation could be tried. Next Appt Details prn Reason: Insurance Providers Payer Name Payer Address Payer Phone Insured Name Patient Relati onship to Insured Coverage Start Date Coverage End Date MEDICAID [employer] [address] [facility] [address] [place] GARCIA self MEDICARE COMPLETE UNITED HE[employer]CARE [address] [address] [facility] [id number] [place]ST[place]EN GARCIA self
--- OUTSIDE RECORDS SUMMARY | 2020-04-12 19:14 | CCD ---
Author Author [facility] Organization [facility] [facility] Address Unknown Phone Unavailable Care Team Providers Care Steel Plate Caulker Name Role Phone Christelle Cook Unavailable PROBLEMS Type Condition ICD9-CM Code [id number] Code Onset Dates Condition S tatus SNOMED Code Notes Problem Type 1 diabetes mellitus with complication E10.8 Active 22301394 Problem Essential hypertension I10 Active 87867552 Problem Anemia of chronic disease D63.8 Active 578990 009 Problem Autonomic instability G90.9 Active 61076033 Problem Adrenal insufficiency E27.40 Active 921605311 Problem Bipolar 1 disorder F31.9 Active 825893691 Problem History of left below knee amputation Z89.512 Ac tive 740988481 Problem Cataract of both eyes, unspecified cataract type H 26.9 Active 16666026 Problem Benign prostatic hyperplasia with lower urinary tract symptoms N40.1 Active 679745452601210 Problem 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 9 Active 7073630595627088 Problem Chronic gastritis without bleeding, unspecified gastri tis type K29.50 Active 07622607 Problem Chronic obstructive pulmonary disease, unspecified COPD ty pe J44.9 Active 50057307 Problem Amputation below knee S88.119A Active 046007437 Problem PVD (peripheral vascular disease) I73.9 Active 212133110 Problem Temporal arteritis M31.6 Active 327512125 Problem Type 1 diabetes mellitus with foot ulcer E10.621 Active 739446059209990 Problem Type 1 diabetes mellitus with other specified complication E10.69 Active 26720190 Problem Type 2 diabetes mellitus with foot ulcer E11.621 Active 575315410 Problem 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 [address] [place] [address] Jan, [facility] discharge follow-up Z09 and Ost eomyelitis of right foot, unspecified type M86.9 IMMUNIZATIONS Vaccine Route Administration Date Status Influenza [...] School Language: Question Answer Notes Languages spoken: Mexican Protestant: Question Answer Notes Protestant 08 Faith Alcohol Screening: Question Answer Notes Did you [...] Jan, BMI 24.22 kg/m2 Jan, Heart Rate 82 /min Jan, Respiratory Rate 20 /min Jan, Temperature 98.5 degrees Fahrenheit Jan, Oximetry 98% Jan, Blood pressure systolic 107 mm Hg Jan, Blood pressure diastolic 58 mm Hg Jan, MEDICATIONS Medication SIG (Take, [...] Information RESULTS No Results REASON FOR VISIT RIGHT FIRST TOE AMPUTATION; INFECTION MEDICAL (GENERAL) HISTORY Type Description Date Medical History temporal arteritis Medical History Psoriasis Medical History DVT 10/2016 Medical History bipolar Medical History Adrenal Insufficiency Medical History type 1 diabetes, complicated by diabetic retinopathy, diabetic neuropathy Medical History Brain tumor Medical History Spondylosis of cervical melissa on [...] Treatment Notes Treatm ent Clinical Notes Jan, Hospital discharge follow-up (ICD-10 - Z09) In preparation for this visit, his entire medical record was reviewed He is compliant with his antibiotics, he was seen yesterday by podiatry, who evaluated the wound and is due for a dressing change from home health today with foam dressing. I called vascular surgery and he does have an appointment to see the vascular surgeon on Sunday, we extensively discussed the risk of loss of the foot as he does not appear to have good vascular supply to it. He is aware, we discussed possible long-term planning In the presence of his mom. He has history of very brittle diabetes with multiple unaware episodes of hypoglycemia, he is managed this well by himself, He will have an appointment with wound care, which I confirmed with Dr. Ayala's office as well. Questions were answered, patient is aware that if his dressing starts to drain, he develops a fever, or is unable to control his blood sugars. He will go to the emergency room. Jan, Osteomyelitis of right foot, unspecified type (I CD-10 - M86.9) PLAN OF TREATMENT Medication Medication Name Sig Start Date Stop Date Wheelchair - as directed Jan, Treatment Notes Assessment Notes Clinical Notes Hospital discharge follow-up In preparat ion for this visit, his entire medical record was reviewed He is compliant with his antibiotics, he was seen yesterday by podiatry, who evaluated the wound and is due for a dressing change from home health today with foam dressing. I called vascular surgery and he does have an appointment to see the vascular surgeon on Sunday, we extensively discussed the risk of loss of the foot as he does not appear to have good vascular supply to it. He is aware, we discussed possible long-term planning In the presence of his mom. He has history of very brittle diabetes with multiple unaware episodes of hypoglycemia, he is managed this well by himself, He will have an appointment with wound care, which I confirmed with Dr. Ayala's office as well. Questions were answered, patient is aware that if his dressing starts to drain, he develops a fever, or is unable to control his blood sugars. He will go to the emergency room. Next Appt Details 4 Weeks Reason:PVD Follow Up:4 WeeksPVD Insurance Providers Payer Name Payer Address Payer Phone Insured Name Patient Relati onship to Insured Coverage Start Date Coverage End Date MEDICAID [employer] [address] [facility] [address] [place] MEDICARE COMPLETE UNITED HEALTHCARE [address] [facility] [id number] SEBASTIEN GARCIA self
--- OUTSIDE RECORDS SUMMARY | 2020-04-12 19:14 | CCD ---
Author Author [facility] Organization [facility] Address Unknown Phone Unavailable Care Team Providers Care Scientific Software Engineer Name Role Phone Christelle Cook Unavailable PROBLEMS Type Condition ICD9-CM Code [id number] Code Onset Dates Condition S tatus SNOMED Code Notes Problem Essential hypertension I10 Active 14267026 Problem Temporal arteritis M31.6 Active 691562352 Problem Autonomic instability G90.9 Active 26768008 Problem Type 1 diabetes mellitus with complication E10.8 Active 30139239 Problem Bipolar 1 disorder F31.9 Active 082926052 Problem Anemia of chronic disease D63.8 Active 600548 009 Problem Cataract of both eyes, unspecified cataract type H 26.9 Active 21049683 Problem Adrenal insufficiency E27.40 Active 039251912 Problem Chronic gastritis without bleeding, unspecified gastri tis type K29.50 Active 80992237 Problem Benign prostatic hyperplasia with lower urinary tract symptoms N40.1 Active 986209475413025 Problem 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 9 Active 3323804312377307 Problem History of left below knee amputation Z89.512 Ac tive 237839156 Problem Chronic obstructive pulmonary disease, unspecified COPD ty pe J44.9 Active 50258601 Problem 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 L97.519 Active Problem Type 1 diabetes mellitus with foot ulcer E10.621 Active 295817857902723 Problem Type 1 diabetes mellitus with other specified complication E10.69 Active 39468749 Problem Type 2 diabetes mellitus with foot ulcer E11.621 Active 796470546 ALLERGIES No Known Allergies ENCOUNTERS from 1960 to 2020-02-21 Encounter Location Date Provider Diagnosis [facility] [address] [address] [place] [address] Jan, Christelle Cook IMMUNIZATIONS Vaccine Route Administration Date [...] School Language: Question Answer Notes Languages spoken: Occitan Zoroastrian: Question Answer Notes Zoroastrian 08 Adventism Alcohol Screening: Question Answer Notes Did you [...] Notes Start Da te End Date Status Glucagon Emergency 1 MG Injection A ctive Pantoprazole Sodium 40 MG 1 tablet Orally bid Active Tramadol HCl 50 MG 1 tablet as needed Orally Once a day Active Ferrous Sulfate 325 (65 Fe) MG 1 tablet Orally Once a day for 30 Active Proscar 5 MG 1 tablet Orally Once a day for 30 day(s) 2018 Not-Taking Atorvastatin Calcium 40MG 1 tablet Orally Once a day for 90 day(s) Active Acetaminophen 500 MG 1 tablet as needed Orally every 6 hrs prn p ain July, Active Celexa 40 MG 1 tab Orally Once a day for 90 day(s) Apr, Active Clopidogrel Bisulfate 75 MG 1 tablet Orally Once a day for 30 day(s) Active Sucralfate 1 GM 1 tablet on an empty stomach Orally before meals and HS 06 May, 2020 Active Gabapentin 300 MG 1 cap Orally bid for 90 day(s) Active Finasteride 5 MG 1 tablet Orally Once a day for 30 day(s) Active Hydrocodone-Acetaminophen 5-325 MG 1 tablet as needed Orally every 6 hrs Active Mupirocin 2 % 1 application to affected ar ea Externally Three times a day for 5 day(s) Dec, Unknown Misc. Devices - left bk replacement socket and supplies DX: Z89. 512 Dec, Unknown Chlorhexidine Gluconate - as directed Active Ketoconazole 2 % 1 application Externally Once a day Active Insulin Syringe 31G X 5/16 as directed orally tid for 30 day(s) Sep, Unknown Proscar 5 MG 1 tablet Orally Once a day for 90 day(s) 2019 Unknown NovoLog 100 UNIT/ML as directed Subcutaneous Ins ulin pump, pump up to 100 units daily July, Not-Taking Fludrocortisone Acetate 0.1 MG 1 tablet Orally Three times a Week for 30 day(s) Active Collagenase 250 UNIT/GM 1 application Externally Once a day Active Aspirin Adult Low Dose 81 MG 1 tablet Orally Once a day Active Brimonidine Tartrate 0.1 % 1 drop into affected eye Ophthalmic ever y 8 hrs Active Lumigan Active Levaquin 500 MG 1 tablet Orally Once a day for 10 day(s) Active Latanoprost 0.005 % 1 drop into affected eye in the evening Ophthalmic left eye Once a day July, Active Protonix 40 MG 1 tablet Orally bid July, Unknown Plavix 75 MG 1 tablet Orally Once a day for 90 day(s) Unknown PredniSONE 5 MG 1 tablet Orally Once a day for 30 day(s) 0 July, Active PROCEDURES No Information RESULTS No Results REASON FOR VISIT Home Physical Therapy MEDICAL (GENERAL) HISTORY Type Description Date Medical [...] Information ASSESSMENTS No Information PLAN OF TREATMENT Next Appt Details Provider Name:Inocente Ledesma, 10:15:00 AM, [address] [place], [address], Insurance Providers Payer Name Payer Address Payer Phone Insured Name Patient Relati onship to Insured Coverage Start Date Coverage End Date MEDICARE COMPLETE [facility] [address] [address] [facility] [id number] SEBASTIEN GARCIA self MEDICAID [facility] [address] [facility] [address] SEBASTIEN GARCIA self
--- OUTSIDE RECORDS SUMMARY | 2020-04-12 19:14 | CCD ---
Author Author [facility] Organization [facility] Address Unknown Phone Unavailable Care Team Providers Care Die Repairer Stamping Name Role Phone Christelle Cook Unavailable PROBLEMS Type Condition ICD9-CM Code [id number] Code Onset Dates Condition S tatus SNOMED Code Notes Problem Bipolar 1 disorder F31.9 Active 564575130 Problem Autonomic instability G90.9 Active 38842972 Problem Adrenal insufficiency E27.40 Active 803263227 Problem Anemia of chronic disease D63.8 Active 373912 009 Problem History of left below knee amputation Z89.512 Ac tive 932731343 Problem Cataract of both eyes, unspecified cataract type H 26.9 Active 88259948 Problem Chronic gastritis without bleeding, unspecified gastri tis type K29.50 Active 71053000 Problem Chronic obstructive pulmonary disease, unspecified COPD ty pe J44.9 Active 85134521 Problem PVD (peripheral vascular disease) I73.9 Active 291193951 Problem 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 L97.519 Active Problem Type 1 diabetes mellitus with foot ulcer E10.621 Active 011885877087553 Problem Type 1 diabetes mellitus with other specified complication E10.69 Active 00213647 Problem Acquired absence of left leg below knee Z89.512 Active 871473926488128 Problem 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 9 Active 5034701558094470 Problem Amputation below knee S88.119A Active 825027555 ALLERGIES No Known Allergies ENCOUNTERS from 1960 to 2020-03-12 [facility]counter [facility] [address] [place] [address] Mar, Christelle Cook Acquired absence of right leg below knee Z89.511 and Acquired absence of left leg below knee Z89.512 IMMUNIZATIONS Vaccine Route Administration Date Status Influenza [...] School Language: Question Answer Notes Languages spoken: Cameroonian Presybeterian: Question Answer Notes Presybeterian 08 Congregational Alcohol Screening: Question Answer Notes Did you [...] Not-Taking Wheelchair - as directed Jan, Active Jeanne Active Insulin Syringe 31G X /16 as [...] Once a day for 90 day(s) 05 2019 Not-Taking Ketoconazole 2 % 1 application [...] Information RESULTS No Results REASON FOR VISIT Script MEDICAL (GENERAL) HISTORY Type Description Date Medical [...] Notes Treatment Notes Treatm ent Clinical Notes Mar, Acquired absence of right leg below knee (ICD-10 - Z89.511) Mar, Acquired absence of left leg below knee (ICD-10 - Z89.512) PLAN OF TREATMENT Medication Medication Name Sig Start Date Stop Date Wheelchair - as directed Jan, Misc. Devices - needs functioning left brake on wheelchair 2019 Insurance Providers Payer Name Payer Address Payer Phone Insured Name Patient Relati onship to Insured Coverage Start Date Coverage End Date MEDICARE COMPLETE [facility] [address] [address] [facility] [id number] SEBASTIEN GARCIA MEDICAID [employer] [address] [facility] [address] SEBASTIEN GARCIA self
--- OUTSIDE RECORDS SUMMARY | 2020-04-12 19:14 | CCD | Continuity of Care Document ---
Author Hermann Banuelos DPM Organization Unknown Address [address] [place] [address], [facility] [address] [place] [address] Phone [phone] Care Team Providers Care Strategy Specialist Name Role Phone MD Inocente Ledesma AUTM [phone] Christelle Cook MD AUTShelby [phone] Problems Active Problems Provider Date Type 2 diabetes mellitus with ulcer Micheal Hansen DPM Ons et: 01/26/2020 Pressure ulcer of right foot stage 4 Micheal Hansen DPM On set: 01/26/2020 Gangrenous disorder Micheal Hansen DPM Onset: 01/26/2020 Pain in limb Micheal Hansen DPM Onset: 01/26/2020 O/E - Amputated left below knee Micheal Hansen DPM Onset: 01/26/2020 Social History Type Date Description Comments Sex Unknown ETOH Use Denies alcohol use Tobacco Use Start: Unknown End: Unknown Patient is a former smoker stopped in 2006, smoked a pack and a half Allergies, Adverse Reactions, Alerts Description No Known Drug Allergies Medications Active Medications SIG Qnty Indications Ordering Provide r Date Cephalexin 500mg Capsules 1 by mouth twice a day 20caps Micheal Hansen DPM 02/02/2020 Tramadol HCL 50mg Tablets 1 tabs every 8 hours as needed for pain 21tabs Micheal Hansen DPM Finasteride 5mg Tablets Take 1 Tablet By Mouth Once Daily Unknown Clopidogrel Bisulfate 75mg Tablets Take 1 Tablet By Mouth Once Daily Unknown SSD 1% Cream Francoise ly Cream Externally Twice Daily To Ulcer Unknown Onetouch Verio w/Device Kit Use as Directed Twice Daily Unknown Gabapentin 300mg Capsules Take 1 Capsule By Mouth Twice Daily For 90 Days Unknown Sucralfate 1GM/10ML Suspension Take 10ML By Mouth After Meals 3 Times Daily Unknown Chlorhexidine Gluconate 0.12% Solu tion Rinse With 15ML For 30 Seconds And Spit Use Twice Daily After Brushing And Flossing . Unknown Glucagon Emergency 1mg Kit Use as Needed For Severe Hypoglycemia Unknown 00 Ibuprofen 800mg Tablets Take 1 Tablet By Mouth Every 8 Hours as Needed For Pain Unknown Amoxicillin 500mg Capsules Take 1 Capsule By Mouth Three Times Daily Until Gone Unknown Hydrocodone-Acetaminophen 5-325mg Tablets take 1 tablets by mouth every 6 hours as needed for pain 14tabs Micheal Hansen, [place] Mupirocin 2% Ointment Apply Ointment Topically To Affected Area Three Times Daily For 5 Days Unknown Clindamycin HCL 150mg Capsules Take 1 Capsule By Mouth Every 8 Hours Until Gone Unknow n Lisinopril 10mg Tablets Take 1 Tablet By Mouth Once Daily Unknown Sucralfate 1gm Tablets Take 1 Tablet By Mouth Before Meal(S) AT Bedtime Unknown Relion Ultra Thin Lancets 30G Thin 30G Misc Use Before And After Meals 8 Times Per Day Unknown Fludrocortisone Acetate 0.1mg Tabl ets Take 1 Tablet By Mouth Once Daily Unknown Citalopram Hydrobromide 40mg Tablets Christelle Cook MD Insulin Lispro 100Unit/ML Solution Alex Kuhn Onetouch Delica Plus Lancets Extra Fine 33G Plus 33G Misc Test Before And After Meals 6 Times A Day Unknown Onetouch Verio Strips Test Before And After Meals 6 Times Daily Unknown Insulin Aspart 100Unit/ML Solution Alex Kuhn Prednisone 1mg Tablets Alex Kuhn Prednisone 5mg Tablets Alex Kuhn Lumigan 0.01% Solution Instill 1 Drop Into Left Eye AT Bedtime as Directed Unknown Ketoconazole 2% Cream Apply Cream Topically Twice Daily Sparingly To Face And Scalp Unknown Alphagan P 0.1% Solution Instill 1 Drop Into Left Eye Twice Daily as Directed Unknown Flublok Quadrivalent 0.5ml Soln Prefill Syringe Pharmacist Administered Immunization Administered AT Time Of Dispensing Unknown Pneumovax 23 25mcg/0.5ML Injection José Lawrence M.D. Paradigm Pump Porum 3ML 3ml Alex Portillo Sure-T Infusion Set 23" Set 23" Alex Portillo Santyl 250Unit/GM Ointment Apply To Ulcer With Fariba Thickness Once Daily Unknown Pantoprazole Sodium 40mg Tablets DR Unknown Latanoprost 0.005% Solution Instill 1 Drop Into Left Eye Every Day AT Bedtime For 90 Days U nknown Atorvastatin Calcium 40mg Tablets Take 1 Tablet By Mouth Once Daily For 90 Days Unknown Immunizations Description No Information Available Vital Signs Date Vital Result Comment 01/22/2020 7:37am Height 69 inches 5'9" Weight 168.00 lb BP Systolic 107 mmHg BP Diastolic 69 mmHg Heart Rate 77 /min BMI (Body Mass Index) 24.8 kg/m2 Results Test Acquired Date Facility Test Result H/L Range Note Laboratory test finding 01/28/2020 [facility] Bedside Glucose 154 mg/dL High 80-115 Laboratory test finding 01/28/2020 [facility] Pathology Request For Service (SEE NOTE) 1 Laboratory test finding 01/28/2020 [facility] Bedside Glucose 91 mg/dL Normal 80-115 1 FINAL DIAGNOSIS Right hallux, 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 Margin appears viable. 01/30/2020956 CLINICAL DIAGNOSIS Right hallux gangrene 01/29/20201303 GROSS DIAGNOSIS Received in formalin labeled "right hallux" and consists of a fragment of hallux 2.5 x 1 x 1 cm. An area of gangrenous changes is noted. Pottery Kiln Builder sections are submitted in two after decalcification. -OA 01/29/20201303 Signed ADJAPONG,SALINA MD 01/30/2020 0957 Procedures Date Code Description Status 01/28/2020 18751 Amputation Metatarsal W/Toe Comp leted Medical Devices Description No Information Available Encounters Type Date Location Provider Dx Diagnosis Office Visit 02/18/2020 1:00p [facility] Micheal Hansen DPM Z48.89 Encounter for other specified surgical aftercare Office Visit 02/02/2020 2:45p [facility] Micheal Hansen DPM Z48.89 Encounter for other specified surgical aftercare Office Visit 01/22/2020 2:30p [facility] Micheal Hansen DPM E11.621 Type 2 diabetes mellitus with foot ulcer L89.894 Pressure ulcer of other site , stage 4 I96 Gangrene, not elsewhere clas sified M79.674 Pain in right toe(s) Assessments Date Code Description Provider 02/18/2020 Z48.89 Encounter for other specified [place] rg[place] aftercare Micheal Hansen DPM 02/13/2020 Z48.89 Encounter for other specified cuba rgical aftercare Micheal Hansen DPM 02/11/2020 Z48.89 Encounter for other specified cuba rgical aftercare Micheal Hansen DPM 02/02/2020 Z48.89 Encounter for other specified cuba rgical aftercare Micheal Hansen DPM 01/28/2020 I96 Gangrene, not elsewhere classifi ed Micheal Hansen DPM 01/28/2020 E11.621 Type 2 diabetes mellitus with fo ot ulcer Micheal Hansen DPM 01/28/2020 L89.894 Pressure ulcer of other site, st age 3 Micheal Hansen DPM 01/22/2020 E11.621 Type 2 diabetes mellitus with fo ot ulcer Micheal Hansen DPM 01/22/2020 L89.894 Pressure ulcer of other site, st age 3 Micheal Hansen DPM 01/22/2020 I96 Gangrene, not elsewhere classifi ed Micheal Hansen DPM 01/22/2020 M79.674 Pain in right toe(s) Micheal das DPM Plan of Treatment Future Appointment(s):* 03/03/2020 2:00 pm - Micheal Hansen DPM at [facility] Functional Status Description No Information Available Mental Status Description No Information Available Referrals Refer to Reason for Referral Status Appt Date Micheal Hansen DPM Created [address] [facility] [address] [place] [address] [phone]
--- OUTSIDE RECORDS SUMMARY | 2020-04-12 19:14 | CCD ---
Author Author [facility] Organization [facility] Address Unknown Phone Unavailable Care Team Providers Care Carpet Sewing Machine Operator Name Role Phone Inocente Ledesma Unavailable PROBLEMS Type Condition ICD9-CM Code OEC17-SY Code Onset Dates Condition S tatus SNOMED Code Notes Problem Bipolar 1 disorder F31.9 Active 653980026 Problem Autonomic instability G90.9 Active 69393955 Problem Adrenal insufficiency E27.40 Active 285638359 Problem Anemia of chronic disease D63.8 Active 989775 009 Problem History of left below knee amputation Z89.512 Ac tive 354472421 Problem Cataract of both eyes, unspecified cataract type H 26.9 Active 65090022 Problem Chronic gastritis without bleeding, unspecified gastri tis type K29.50 Active 02968431 Problem Chronic obstructive pulmonary disease, unspecified COPD ty pe J44.9 Active 02026685 Problem PVD (peripheral vascular disease) I73.9 Active 543172436 Problem 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 L97.519 Active Problem Type 1 diabetes mellitus with foot ulcer E10.621 Active 271119817737584 Problem Type 1 diabetes mellitus with other specified complication E10.69 Active 83585546 Problem Acquired absence of left leg below knee Z89.512 Active 266132783883275 Problem 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 9 Active 9830043695852195 Problem Amputation below knee S88.119A Active 126465191 ALLERGIES No Known Allergies ENCOUNTERS from 1960 to 2020-03-18 Encounter Location Date Provider Diagnosis [facility] [address] [place] [address] Jan Inocente Ledesma IMMUNIZATIONS Vaccine Route Administration Date Status Influenza [...] School Language: Question Answer Notes Languages spoken: Azeri Anabaptism: Question Answer Notes Anabaptism 08 Yarsanism Alcohol Screening: Question Answer Notes Did you [...] Active Lumigan Active Insulin Syringe 31G X /16 as [...] Information RESULTS No Results REASON FOR VISIT [facility] APT MEDICAL (GENERAL) HISTORY Type Description Date Medical [...] Coverage Start Date Coverage End Date MEDICAID [employer] [address] [facility] [address] SEBASTIEN GARCIA self MEDICARE COMPLETE [facility] [address] [address] [facility] [id number] SEBASTIEN GARCIA self
--- OUTSIDE RECORDS SUMMARY | 2020-04-12 19:14 | CCD ---
Author Author [facility] Organization [facility] Address Unknown Phone Unavailable Care Team Providers Care Equipment Sales Specialist Name Role Phone Christelle Cook Unavailable PROBLEMS Type Condition ICD9-CM Code [id number] Code Onset Dates Condition S tatus SNOMED Code Notes Problem Bipolar 1 disorder F31.9 Active 366516742 Problem Autonomic instability G90.9 Active 13867831 Problem Adrenal insufficiency E27.40 Active 560061586 Problem Anemia of chronic disease D63.8 Active 561690 009 Problem History of left below knee amputation Z89.512 Ac tive 846723933 Problem Cataract of both eyes, unspecified cataract type H 26.9 Active 48512496 Problem Chronic gastritis without bleeding, unspecified gastri tis type K29.50 Active 95380316 Problem Chronic obstructive pulmonary disease, unspecified COPD ty pe J44.9 Active 12387118 Problem PVD (peripheral vascular disease) I73.9 Active 811905195 Problem 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 L97.519 Active Problem Type 1 diabetes mellitus with foot ulcer E10.621 Active 763405331891068 Problem Type 1 diabetes mellitus with other specified complication E10.69 Active 13865901 Problem Acquired absence of left leg below knee Z89.512 Active 038982860934000 Problem 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 9 Active 3327841185655483 Problem Amputation below knee S88.119A Active 145213157 ALLERGIES No Known Allergies ENCOUNTERS from 1960 to 2020-03-31 Encounter [facility] [address] [place] [address] Mar, Christelle Cook IMMUNIZATIONS Vaccine Route Administration [...] School Language: Question Answer Notes Languages spoken: Djiboutian Sikh: Question Answer Notes Sikh 08 Sikhism Alcohol Screening: Question Answer Notes Did you [...] Information RESULTS No Results REASON FOR VISIT physical therapy assessment MEDICAL (GENERAL) HISTORY Type Description Date Medical [...] Appt Details Provider Name:Sofia Lopez, 02:00:00 PM, [address] [place], [address], Insurance Providers Payer Name Payer Address Payer Phone Insured Name Patient Relati onship to Insured Coverage Start Date Coverage End Date MEDICAID [employer] [address] [facility] [address] SEBASTIEN GARCIA self MEDICARE COMPLETE [facility] [address] [address] [facility] [phone] SEBASTIEN GARCIA self
--- OUTSIDE RECORDS SUMMARY | 2020-04-12 19:14 | CCD ---
Author Author [facility] Organization [facility] Address Unknown Phone Unavailable Care Team Providers Care Hotel Night Auditor Name Role Phone Christelle Cook Unavailable PROBLEMS Type Condition ICD9-CM Code [id number] Code Onset Dates Condition S tatus SNOMED Code Notes Problem Anemia of chronic disease D63.8 Active 614881 009 Problem Bipolar 1 disorder F31.9 Active 550880063 Problem Cataract of both eyes, unspecified cataract type H 26.9 Active 64058670 Problem Adrenal insufficiency E27.40 Active 027421104 Problem PVD (peripheral vascular disease) I73.9 Active 169569593 Problem History of left below knee amputation Z89.512 Ac tive 092247631 Problem Benign prostatic hyperplasia with lower urinary tract symptoms N40.1 Active 629904175900479 Problem Temporal arteritis M31.6 Active 017046116 Problem Chronic gastritis without bleeding, unspecified gastri tis type K29.50 Active 36838980 Problem Chronic obstructive pulmonary disease, unspecified COPD ty pe J44.9 Active 28996437 Problem Type 1 diabetes mellitus with foot ulcer E10.621 Active 941063370036969 Problem Type 1 diabetes mellitus with other specified complication E10.69 Active 43930484 Problem Type 2 diabetes mellitus with foot ulcer E11.621 Active 234787423 Problem Acquired absence of right leg below knee Z89.511 Active 889112629 Problem 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 L97.519 Active Problem Type 1 diabetes mellitus with complication E10.8 Active 34530732 Problem Below-knee amputation of right lower extremity S88 .111A Active 424072659 Problem 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 9 Active 2720320118753234 Problem Amputation below knee S88.119A Active 582090080 Problem Acquired absence of left leg below knee Z89.512 Active 104159646069460 ALLERGIES No Known Allergies ENCOUNTERS from 1960 to 2020-04-07 Encounter Location Date Provider Diagnosis [facility] [address] [place] [address], Christelle Cook IMMUNIZATIONS Vaccine Route Administration [...] School Language: Question Answer Notes Languages spoken: Gambian Christianity: Question Answer Notes Christianity 08 Lutheran Alcohol Screening: Question Answer Notes Did you [...] Notes Start Da te End Date Status Proscar 5 MG 1 tablet Orally Once a day for 90 day(s) 2019 Not-Taking Ketoconazole 2 % 1 application Externally Once a day Active Latanoprost 0.005 % 1 drop into affected eye in the evening Ophthalmic left eye Once a day July, Active Plavix 75 MG 1 tablet Orally Once a day for 90 day(s) Not-Taking Pantoprazole Sodium 40 MG 1 tablet Orally bid Active PredniSONE 5 MG 1 tablet Orally Once a day for 30 day(s) 0 July, Active Mupirocin 2 % 1 application to affected ar ea Externally Three times a day for 5 day(s) Dec, Not-Taking Ferrous Sulfate 325 (65 Fe) MG 1 tablet Orally Once a day for 30 Active Misc. Devices - left bk replacement socket and supplies DX: Z89. 512 Dec, Not-Taking Atorvastatin Calcium 40MG 1 tablet Orally Once a day for 90 day(s) Active Celexa 40 MG 1 tab Orally Once a day for 90 day(s) Apr, Active Sucralfate 1 GM 1 tablet on an empty stomach Orally before meals and HS July, Active Gabapentin 300 MG 1 cap Orally bid for 90 day(s) Active Glucagon Emergency 1 MG Injection A ctive Misc. Devices - needs functioning left brake on wheelchair Mar, Active NovoLog 100 UNIT/ML as directed Subcutaneous Ins ulin pump, pump up to 100 units daily July, Not-Taking Brimonidine Tartrate 0.1 % 1 drop into affected eye Ophthalmic ever y 8 hrs Active Proscar 5 MG 1 tablet Orally Once a day for 30 day(s) 19 S 2018 Not-Taking Fludrocortisone Acetate 0.1 MG 1 tablet Orally Three times a Week for 30 day(s) Active Clopidogrel Bisulfate 75 MG 1 tablet Orally Once a day for 30 day(s) Active Protonix 40 MG 1 tablet Orally bid July, Not-Taking Collagenase 250 UNIT/GM 1 application Externally Once a day Active Finasteride 5 MG 1 tablet Orally Once a day for 30 day(s) Active Acetaminophen 500 MG 1 tablet as needed Orally every 6 hrs prn p ain July, Active Wheelchair - as directed Jan, Active Insulin Syringe 31G X 5/16 as directed orally tid for 30 day(s) Sep, Not-Taking Tramadol HCl 50 MG 1 tablet as needed Orally Once a day Active Chlorhexidine Gluconate - as directed Active Jeanne Active Hydrocodone-Acetaminophen 5-325 MG 1 tablet as needed Orally every 6 hrs Active Aspirin Adult Low Dose 81 MG 1 tablet Orally Once a day Active Levaquin 500 MG 1 tablet Orally Once a day for 10 day(s) Active PROCEDURES No Information RESULTS No Results REASON FOR VISIT 2015 Form MEDICAL (GENERAL) HISTORY Type Description Date Medical [...] Surgical History rt great toe amp 01/2020 Surgical History right leg amputation 03/04/2020 Hospitalization History [facility] 10/2016 Hospitalization History hypoglycemia 12/02/2016-12/12/19 17 Hospitalization History autonomic instability 04/02/201707/2017 Hospitalization History hypergycemia 08/04/2019- 0 Hospitalization History leg amputation 03/04/2020 Goals Section No Information Health Concerns No Information MEDICAL EQUIPMENT No Information MENTAL STATUS No Information FUNCTIONAL STATUS No Information ASSESSMENTS No Information PLAN OF TREATMENT Next Appt Details Provider Name:Christelle Cook, 2020-04-27 0 3:30:00 PM, [address] [place], [address], Insurance Providers Payer Name Payer Address Payer Phone Insured Name Patient Relati onship to Insured Coverage Start Date Coverage End Date MEDICAID [employer] [address] [facility] [address] [place] self MEDICARE COMPLETE [facility] [address] [address] [facility] [id number] SEBASTIEN GARCIA self
--- OUTSIDE RECORDS SUMMARY | 2020-04-12 19:15 | CCD | Continuity of Care Document ---
Author Hermann Banuelos DPShelby Organization Unknown Address [address] [place] [address], [facility] [address] [place] [address] Phone [phone] Care Team Providers Care Resort Host Name Role Phone MD Inocente Ledesma AUTM [phone] Christelle Cook MD AUTM [phone] Problems Active Problems Provider Date Type 2 [...] SIG Qnty Indications Ordering Provide r Date Finasteride 5mg Tablets Take 1 Tablet By [...] as needed for pain 14tabs Micheal Hansen, DPM Mupirocin 2% Ointment Apply Ointment Topically To [...] 25mcg/0.5ML Injection José Lawrence M.D. Paradigm Pump [place] 3ML 3ml Alex Portillo Sure-T Infusion Set 23" Set 23" Samson KuhnAlex Santyl 250Unit/GM Ointment Apply To Ulcer With [...] H/L Range Note Laboratory test finding 01/28/2020 [facility] Bedside Glucose 154 mg/dL High 80-115 Laboratory test finding 01/28/2020 [facility] Pathology Request For Service (SEE NOTE) 1 Laboratory test finding 01/28/2020 [facility] Bedside Glucose 91 mg/dL Normal 80-115 1 FINAL DIAGNOSIS Right hallux, 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 Margin appears viable. 01/30/2020956 CLINICAL DIAGNOSIS Right hallux gangrene 01/29/20201303 GROSS DIAGNOSIS Received in formalin labeled "right hallux" and consists of a fragment of hallux 2.5 x 1 x 1 cm. An area of gangrenous changes is noted. Slip Injector And Applicator sections are submitted in two after decalcification. -OA 01/29/20201303 Signed SALINA SAUNDERS MD 01/30/2020956 Procedures Description No Information Available Medical Devices Description No Information Available Encounters Type Date Location Provider Dx Diagnosis Office Visit 01/22/2020 2:30p [facility] Micheal Hansen DPM E11.621 Type 2 diabetes mellitus with foot ulcer L89.894 Pressure ulcer of other site , stage 4 I96 Gangrene, not elsewhere clas sified M79.674 Pain in right toe(s) Assessments Date Code Description Provider 01/22/2020 E11.621 Type 2 diabetes mellitus with fo ot ulcer Micheal Hansen DPM 01/22/2020 L89.894 Pressure ulcer of other site, st age 3 Micheal Hansen DPM 01/22/2020 I96 Gangrene, not elsewhere classifi ed Micheal Hansen DPM 01/22/2020 M79.674 Pain in right toe(s) Micheal das DPM Plan of Treatment No Information Available Functional Status Description No Information Available Mental Status Description No Information Available Referrals Description No Information Available
--- OUTSIDE RECORDS SUMMARY | 2020-04-12 19:15 | CCD ---
Author Author [facility] Organization [facility] Address Unknown Phone Unavailable Care Team Providers Care Svp Monetization Name Role Phone Inocente Ledesma Unavailable PROBLEMS Type Condition ICD9-CM Code [id number] Code Onset Dates Condition S tatus SNOMED Code Notes Problem Temporal arteritis M31.6 Active 722211435 Problem Chronic obstructive pulmonary disease, unspecified COPD ty pe J44.9 Active 78989942 Problem Type 1 diabetes mellitus with complication E10.8 Active 40838571 Problem Essential hypertension I10 Active 75617398 Problem Anemia of chronic disease D63.8 Active 552261 009 Problem Autonomic instability G90.9 Active 18854467 Problem Adrenal insufficiency E27.40 Active 315273686 Problem Bipolar 1 disorder F31.9 Active 902941007 Problem PVD (peripheral vascular disease) I73.9 Active 054265658 Problem Chronic gastritis without bleeding, unspecified gastri tis type K29.50 Active 88075578 Problem Benign prostatic hyperplasia with lower urinary tract symptoms N40.1 Active 663972532411571 Problem 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 Active 627176168 Problem History of left below knee amputation Z89.512 Ac tive 568664183 Problem Type 2 diabetes mellitus with foot ulcer E11.621 Active 632255057 Problem Cataract of both eyes, unspecified cataract type H 26.9 Active 37924564 Problem 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 Active 274932352 Problem 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 L97.519 Active Problem Type 1 diabetes mellitus with foot ulcer E10.621 Active 407768225210423 Problem Type 1 diabetes mellitus with other specified complication E10.69 Active 40639387 ALLERGIES No Known Allergies ENCOUNTERS from 1960 to 2020-02-18 Encounter Location Date Provider Diagnosis [facility] [address] [place] [address] Jan Inocente Ledesma Type 2 diabetes mellitus [...] School Language: Question Answer Notes Languages spoken: Ukrainian Anabaptist: Question Answer Notes Anabaptist 08 Jainism Alcohol Screening: Question Answer Notes Did you [...] FOR REFERRAL No Information VITAL SIGNS Weight 168 lbs Jan, Weight-kg PER PT kg Jan, Height 69 in Jan, BMI 24.81 kg/m2 Jan, Heart Rate 88 /min Jan, Respiratory Rate 22 /min Jan, Temperature 98.2 degrees Fahrenheit Jan, Blood pressure systolic 188 mm Hg Jan, Blood pressure diastolic 100 MANUALLY mm Hg Jan, MEDICATIONS Medication SIG (Take, Route, Frequency, Duration) Notes Start Da te End Date Status Acetaminophen 500 MG 1 tablet as needed Orally every 6 hrs prn p ain July, Active Gabapentin 300 MG 1 cap Orally bid for 90 day(s) Active Atorvastatin Calcium 40MG 1 tablet Orally Once a day for 90 day(s) Active Aspirin Adult Low Dose 81 MG 1 tablet Orally Once a day Active Glucagon Emergency 1 MG Injection A ctive Protonix 40 MG 1 tablet Orally bid July, Active Celexa 40 MG 1 tab Orally Once a day for 90 day(s) Apr, Active Plavix 75 MG 1 tablet Orally Once a day for 90 day(s) Active Mupirocin 2 % 1 application to affected ar ea Externally Three times a day for 5 day(s) Dec, Active Proscar 5 MG 1 tablet Orally Once a day for 30 day(s) 19 S , 2018 Not-Taking Insulin Syringe 31G X /16 as directed orally tid for 30 day(s) Sep, Active NovoLog 100 UNIT/ML as directed Subcutaneous Ins ulin pump, pump up to 100 units daily July, Active Tramadol HCl 50 MG 1 tablet as needed Orally Once a day Active Misc. Devices - left bk replacement socket and supplies DX: Z89. 512 Dec, Active Proscar 5 MG 1 tablet Orally Once a day for 90 day(s) 05 J 2019 Active Latanoprost 0.005 % 1 drop into affected eye in the evening Ophthalmic left eye Once a day July, Active Ferrous Sulfate 325 (65 Fe) MG 1 tablet Orally Once a day for 30 Active PredniSONE 5 MG 1 tablet Orally Once a day for 30 day(s) 0 July, Active Sucralfate 1 GM 1 tablet on an empty stomach Orally before meals and HS July, Active PROCEDURES No Information RESULTS No Results REASON FOR VISIT RLE [...] mellitus with foot ulcer (ICD-10 - E11.621) Jan, 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 (ICD-10 - L97.514) Jan, Other LIDO 2% LOT#[id number] EXP 08/22; 22CC INJECTED BY MD TO RT FOOT PLAN OF TREATMENT Next Appt Details 1 Week Reason: Provider Name:Christelle Cook, 2020-02-19 0 1:30:00 PM, [address] [place], [address], Insurance Providers Payer Name Payer Address Payer Phone Insured Name Patient Relati onship to Insured Coverage Start Date Coverage End Date MEDICARE COMPLETE [facility] [address] [address] [facility] [phone] [place] GARCIA self MEDICAID [facility] [address] [facility] [address] [place]ARC[place] self
--- OUTSIDE RECORDS SUMMARY | 2020-04-12 19:15 | CCD ---
Author Author [facility] Organization [facility] Address Unknown Phone Unavailable Care Team Providers Care Classification Control Clerk Name Role Phone Inocente Ledesma Unavailable PROBLEMS Type Condition ICD9-CM Code [id number] Code Onset Dates Condition S tatus SNOMED Code Notes Problem Temporal arteritis M31.6 Active 236001562 Problem Chronic obstructive pulmonary disease, unspecified COPD ty pe J44.9 Active 02369248 Problem Type 1 diabetes mellitus with complication E10.8 Active 63794507 Problem Essential hypertension I10 Active 07096487 Problem Anemia of chronic disease D63.8 Active 149316 009 Problem Autonomic instability G90.9 Active 49380344 Problem Adrenal insufficiency E27.40 Active 340555815 Problem Bipolar 1 disorder F31.9 Active 062141174 Problem PVD (peripheral vascular disease) I73.9 Active 767735042 Problem Chronic gastritis without bleeding, unspecified gastri tis type K29.50 Active 07994754 Problem Benign prostatic hyperplasia with lower urinary tract symptoms N40.1 Active 777634045709734 Problem 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 Active 796001523 Problem History of left below knee amputation Z89.512 Ac tive 612667149 Problem Type 2 diabetes mellitus with foot ulcer E11.621 Active 004636983 Problem Cataract of both eyes, unspecified cataract type H 26.9 Active 69305572 Problem 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 Active 068426309 Problem 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 L97.519 Active Problem Type 1 diabetes mellitus with foot ulcer E10.621 Active 370092022176875 Problem Type 1 diabetes mellitus with other specified complication E10.69 Active 02036167 ALLERGIES No Known Allergies ENCOUNTERS from 1960 to 2020-01-30 Encounter Location Date Provider Diagnosis [facility] [address] [place] [address] Dec Inocente Ledesma Type 2 diabetes mellitus with [...] School Language: Question Answer Notes Languages spoken: Mohawk Synagogue: Question Answer Notes Synagogue 08 Mandaeism Alcohol Screening: Question Answer Notes Did you [...] No Information VITAL SIGNS Weight 168 lbs Dec, Weight-kg per pt kg Dec, Height 69 in Dec, BMI 24.81 kg/m2 Dec, Heart Rate 77 /min Dec, Respiratory Rate 18 /min Dec, Temperature 94.6 degrees Fahrenheit Dec, Oximetry 100% Dec, Blood pressure systolic 107 mm Hg Dec, Blood pressure diastolic 69 mm Hg Dec, MEDICATIONS Medication SIG (Take, Route, Frequency, Duration) Start Date En d Date Status Ferrous Sulfate 325 (65 Fe) MG 1 tablet Orally Once a day for 30 Active Mupirocin 2 % 1 application to affected ar ea Externally Three times a day for 5 day(s) Dec, Active Plavix 75 MG 1 tablet Orally Once a day for 90 day(s) Active Aspirin Adult Low Dose 81 MG 1 tablet Orally Once a day Active Atorvastatin Calcium 40MG 1 tablet Orally Once a day for 90 day(s) Active Latanoprost 0.005 % 1 drop into affected eye in the evening Ophthalmic left eye Once a day July, Active Sucralfate 1 GM 1 tablet on an empty stomach Orally befo re meals and HS July, Active Celexa 40 MG 1 tab Orally Once a day for 90 day(s) Apr, Active Gabapentin 300 MG 1 cap Orally bid for 90 day(s) Active PredniSONE 5 MG 1 tablet Orally Once a day for 30 day(s) July, Active Proscar 5 MG 1 tablet Orally Once a day for 90 day(s) Aug, Active Insulin Syringe 31G X 5/16 as directed orally tid for 30 day(s) Sep, Active Proscar 5 MG 1 tablet Orally Once a day for 30 day(s) Dec, Not-Taking Glucagon Emergency 1 MG Injection Acti ve Misc. Devices - left bk replacement socket and supplies DX: Z89.512 Dec, Active Acetaminophen 500 MG 1 tablet as needed Orally every 6 hrs p rn pain July, Active NovoLog 100 UNIT/ML as directed Subcutaneous Ins ulin pump, pump up to 100 units daily July, Active Protonix 40 MG 1 tablet Orally bid July, Active PROCEDURES Procedure Date Ordered Result Body Site LIDOCAINE 4% CREAM TOPICAL 2020-01-19 N/A RESULTS No Results REASON FOR VISIT foot wound MEDICAL (GENERAL) HISTORY Type Description Date [...] History left BKA Surgical History Cataract 03/2018 Hospitalization History [facility] 10/2016 Hospitalization History hypoglycemia 12/02/2016-12/12/19 17 Hospitalization History autonomic instability 04/02/201707/2017 Hospitalization History hypergycemia 08/04/2019- 0 Goals Section No Information Health Concerns No Information MEDICAL EQUIPMENT No Information MENTAL STATUS No Information FUNCTIONAL STATUS No Information ASSESSMENTS Encounter Date Diagnosis Notes Dec, 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 (ICD-10 - L97.514) Dec, Type 2 diabetes mellitus with foot ulcer (ICD-10 - E11.621) PLAN OF TREATMENT Next Appt Details 1 Week Reason: Provider Name:Christelle Castros, 2020-02-05 1 0:45:00 AM, [address] [place], [address], Provider Name:Inocente Ledesma, 03:00:00 PM, [address] [place], [address], Insurance Providers Payer Name Payer Address Payer Phone Insured Name Patient Relati onship to Insured Coverage Start Date Coverage End Date MEDICAID [employer] [address] [facility] [id number] [place] self MEDICARE COMPLETE [facility] [address] [address] [facility] [phone] SEBASTIEN GARCIA self
--- OUTSIDE RECORDS SUMMARY | 2020-04-12 19:15 | CCD | Continuity of Care Document ---
Author Hermann Banuelos DPM Organization Unknown Address [address] [place] [address], [facility] [address] [place] [address] Phone [phone] Care Team Providers Care Locksmith Helper Name Role Phone MD Inocente Ledesma AUTM [phone] Christelle Cook MD AUTShelby [phone] Problems Active Problems Provider Date Type 2 [...] 25mcg/0.5ML Injection José Lawrence M.D. Paradigm Pump [place] 3ML 3ml Alex Portillo Sure-T Infusion Set [...] H/L Range Note Laboratory test finding 01/28/2020 [facility] Bedside Glucose 154 mg/dL High 80-115 Laboratory test finding 01/28/2020 [facility] Pathology Request For Service (SEE NOTE) 1 Laboratory test finding 01/28/2020 [facility] Bedside Glucose 91 mg/dL Normal 80-115 1 FINAL DIAGNOSIS Right hallux, 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 Margin appears viable. 01/30/2020956 CLINICAL DIAGNOSIS Right hallux gangrene 01/29/20201303 GROSS DIAGNOSIS Received in formalin labeled "right hallux" and consists of a fragment of hallux 2.5 x 1 x 1 cm. An area of gangrenous changes is noted. Obstetrician sections are submitted in two after decalcification. -OA 01/29/20201303 Signed ADJAPONG,SALINA MD 01/30/2020 0957 Procedures Date Code Description Status 01/28/2020 38855 Amputation Metatarsal W/Toe Comp leted Medical Devices Description No Information Available Encounters Type Date Location Provider Dx Diagnosis Office Visit 01/22/2020 2:30p [facility] Micheal Hansen DPM E11.621 Type 2 diabetes mellitus with foot ulcer L89.894 Pressure ulcer of other site , stage 4 I96 Gangrene, not elsewhere clas sified M79.674 Pain in right toe(s) Assessments Date Code Description Provider 01/28/2020 I96 Gangrene, not elsewhere classifi ed [...] das DPM Plan of Treatment Future Appointment(s):* 02/09/2020 2:30 pm - Micheal Hansen DPM at [facility] Functional Status Description No Information Available Mental Status Description No Information Available Referrals Description No Information Available
--- OUTSIDE RECORDS SUMMARY | 2020-04-12 19:15 | CCD ---
Author Author [facility] Organization [facility] Address Unknown Phone Unavailable Care Team Providers Care Acute Coordinator Name Role Phone Christelle Cook Unavailable PROBLEMS Type Condition ICD9-CM Code [id number] Code Onset Dates Condition S tatus SNOMED Code Notes Problem Temporal arteritis M31.6 Active 731844368 Problem Chronic obstructive pulmonary disease, unspecified COPD ty pe J44.9 Active 14744645 Problem Type 1 diabetes mellitus with complication E10.8 Active 19668888 Problem Essential hypertension I10 Active 65260620 Problem Anemia of chronic disease D63.8 Active 390719 009 Problem Autonomic instability G90.9 Active 30724088 Problem Adrenal insufficiency E27.40 Active 291374287 Problem Bipolar 1 disorder F31.9 Active 461199870 Problem PVD (peripheral vascular disease) I73.9 Active 496621090 Problem Chronic gastritis without bleeding, unspecified gastri tis type K29.50 Active 39056608 Problem Benign prostatic hyperplasia with lower urinary tract symptoms N40.1 Active 465641509096961 Problem 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 Active 791550611 Problem History of left below knee amputation Z89.512 Ac tive 137377984 Problem Type 2 diabetes mellitus with foot ulcer E11.621 Active 257742718 Problem Cataract of both eyes, unspecified cataract type H 26.9 Active 81730336 Problem 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 Active 725483702 Problem 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 L97.519 Active Problem Type 1 diabetes mellitus with foot ulcer E10.621 Active 305706659746585 Problem Type 1 diabetes mellitus with other specified complication E10.69 Active 31966903 ALLERGIES No Known Allergies ENCOUNTERS from 1960 to 2020-02-12 Encounter Location Date Provider Diagnosis [facility] [address] [place] [address] Jan, Christelle Cook IMMUNIZATIONS Vaccine Route [...] School Language: Question Answer Notes Languages spoken: Tunisian Voodoo: Question Answer Notes Voodoo 08 Restorationist Alcohol Screening: Question Answer Notes Did you [...] Duration) Start Date En d Date Status Acetaminophen 500 MG 1 tablet as needed Orally every 6 hrs p rn pain July, Active Gabapentin 300 MG 1 cap Orally bid for 90 day(s) Active Atorvastatin Calcium 40MG 1 tablet Orally Once a day for 90 day(s) Active Aspirin Adult Low Dose 81 MG 1 tablet Orally Once a day Active Glucagon Emergency 1 MG Injection Acti ve Protonix 40 MG 1 tablet Orally bid [...] a day for 30 day(s) Dec, Not-Taking Insulin Syringe 31G X 5/16 as directed orally tid for 30 day(s) Sep, Active NovoLog 100 UNIT/ML as directed Subcutaneous Ins ulin pump, pump up to 100 units daily July, Active Tramadol HCl 50 MG 1 tablet as needed Orally Once a day Active Misc. Devices - left bk replacement socket and supplies DX: Z89.512 Dec, Active Proscar 5 MG 1 tablet Orally Once a day for 90 day(s) Aug, Active Latanoprost 0.005 % 1 drop into affected eye in the evening Ophthalmic left eye Once a day July, Active Ferrous Sulfate 325 (65 Fe) MG 1 tablet Orally Once a day for 30 Active PredniSONE 5 MG 1 tablet Orally Once a day for 30 day(s) July, 20 Active Sucralfate 1 GM 1 tablet on an empty stomach Orally befo re meals and HS July, Active PROCEDURES No Information RESULTS No Results REASON FOR VISIT Patient admission notice MEDICAL (GENERAL) HISTORY Type Description Date Medical [...] Information ASSESSMENTS No Information PLAN OF TREATMENT No Information Insurance Providers Payer Name Payer Address Payer Phone Insured Name Patient Relati onship to Insured Coverage Start Date Coverage End Date MEDICAID [employer] [address] [facility] [address] SEBASTIEN GARCIA self MEDICARE [employer] [facility] [address] [address] [facility] [id number] SEBASTIEN GARCIA self
--- OUTSIDE RECORDS SUMMARY | 2020-04-12 19:15 | CCD | Continuity of Care Document ---
Author Hermann Banuelos DPM Organization Unknown Address [address] [place] [address], [facility] [address] [place] [address] Phone [phone] Care Team Providers Care Hide Dropper Name Role Phone MD Inocente Ledesma AUTM [phone] Christelle Cook MD AUTShelby [phone] Problems Active Problems Provider Date Type 2 [...] 25mcg/0.5ML Injection José Lawrence M.D. Paradigm Pump [place] 3ML 3ml Alex Portillo Sure-T Infusion Set [...] H/L Range Note Laboratory test finding 01/28/2020 [facility] Bedside Glucose 154 mg/dL High 80-115 Laboratory test finding 01/28/2020 [facility] Pathology Request For Service (SEE NOTE) 1 Laboratory test finding 01/28/2020 [facility] Bedside Glucose 91 mg/dL Normal 80-115 1 FINAL DIAGNOSIS Right hallux, 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 Margin appears viable. 01/30/2020956 CLINICAL DIAGNOSIS Right hallux gangrene 01/29/20201303 GROSS DIAGNOSIS Received in formalin labeled "right hallux" and consists of a fragment of hallux 2.5 x 1 x 1 cm. An area of gangrenous changes is noted. Postage Machine Operator sections are submitted in two after decalcification. -OA 01/29/20201303 Signed ADJAPONG,SALINA MD 01/30/2020 0957 Procedures Date Code Description Status 01/28/2020 89553 Amputation Metatarsal W/Toe Comp leted Medical Devices Description No Information Available Encounters Type Date Location Provider Dx Diagnosis Office Visit 02/02/2020 2:45p [place] [facility] Micheal Hansen DPM Z48.89 Encounter for other specified surgical aftercare Office Visit 01/22/2020 2:30p [place] [facility] Micheal Hansen DPM E11.621 Type 2 diabetes mellitus with foot ulcer L89.894 Pressure ulcer of other site , stage 4 I96 Gangrene, not elsewhere clas sified M79.674 Pain in right toe(s) Assessments Date Code Description Provider 02/02/2020 Z48.89 Encounter for other specified [place] rg[place] aftercare Micheal Hansen DPM 01/28/2020 I96 Gangrene, not elsewhere classifi ed Michela Hansen DPM 01/28/2020 E11.621 Type 2 diabetes [...] 2:00 pm - Micheal Hansen DPM at [facility] Functional Status Description No Information Available Mental Status Description No Information Available Referrals Refer to Reason for Referral Status Appt Date Micheal Hansen DPM Created 3 [facility] [address] [place] [address] [phone]
--- OUTSIDE RECORDS SUMMARY | 2020-04-12 19:15 | CCD ---
Author Author [facility] Organization [facility] Address Unknown Phone Unavailable Care Team Providers Care Md Senior Research Scientist Name Role Phone Christelle Cook Unavailable PROBLEMS Type Condition ICD9-CM Code HCS25-MN Code Onset Dates Condition S tatus SNOMED Code Notes Problem Essential hypertension I10 Active 70495067 Problem Temporal arteritis M31.6 Active 519476105 Problem Autonomic instability G90.9 Active 18257126 Problem Type 1 diabetes mellitus with complication E10.8 Active 96335613 Problem Bipolar 1 disorder F31.9 Active 602711592 Problem Anemia of chronic disease D63.8 Active 005604 009 Problem Cataract of both eyes, unspecified cataract type H 26.9 Active 60170654 Problem Adrenal insufficiency E27.40 Active 043320688 Problem Chronic gastritis without bleeding, unspecified gastri tis type K29.50 Active 37045506 Problem Benign prostatic hyperplasia with lower urinary tract symptoms N40.1 Active 180578871138986 Problem 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 9 Active 8432119574779640 Problem History of left below knee amputation Z89.512 Ac tive 255489026 Problem Chronic obstructive pulmonary disease, unspecified COPD ty pe J44.9 Active 46603330 Problem 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 L97.519 Active Problem Type 1 diabetes mellitus with foot ulcer E10.621 Active 983005115502941 Problem Type 1 diabetes mellitus with other specified complication E10.69 Active 10402471 Problem Type 2 diabetes mellitus with foot ulcer E11.621 Active 668200753 ALLERGIES No Known Allergies ENCOUNTERS from 1960 to 2020-02-20 Encounter Location Date [facility] [address] [place] [address] Jan, Christelle Cook IMMUNIZATIONS Vaccine Route [...] School Language: Question Answer Notes Languages spoken: Romansh Mandaeism: Question Answer Notes Mandaeism 08 Orthodox Alcohol Screening: Question Answer Notes Did you [...] Information RESULTS No Results REASON FOR VISIT TCM/ACO [facility] D/C 02/13; Diabetes MEDICAL (GENERAL) HISTORY Type Description Date Medical [...] Treatment Notes Treatm ent Clinical Notes Jan, Other Discussion with patient PLAN OF TREATMENT Next Appt Details Provider Name:Inocente Ledesma, 10:15:00 AM, [address] [place], [address], Insurance Providers Payer Name Payer Address Payer Phone Insured Name Patient Relati onship to Insured Coverage Start Date Coverage End Date MEDICARE COMPLETE [facility] [address] [address] [facility] [id number] SEBASTIEN GARCIA self MEDICAID [employer] [address] [facility] [address] SEBASTIEN GARCIA self
--- OUTSIDE RECORDS SUMMARY | 2020-04-12 19:15 | CCD | Continuity of Care Document ---
Author Hermann Banuelos DPShelby Organization Unknown Address [address] [place] [address], [facility] 2 [place] [address] Phone [phone] Care Team Providers Care Choke Setter Name Role Phone MD Inocente Ledesma AUTM [phone] Christelle Cook MD AUTM [phone] Problems Active Problems Provider Date Type 2 [...] 25mcg/0.5ML Injection José Lawrence M.D. Paradigm Pump [place] 3ML 3ml Margekirill BamAlex Sure-T Infusion Set 23" Set 23" Samson BamAlex Santyl 250Unit/GM Ointment Apply To Ulcer With [...] H/L Range Note Laboratory test finding 01/28/2020 [facility] Bedside Glucose 154 mg/dL High 80-115 Laboratory test finding 01/28/2020 [facility] Pathology Request For Service (SEE NOTE) 1 Laboratory test finding 01/28/2020 [facility] Bedside Glucose 91 mg/dL Normal 80-115 1 FINAL DIAGNOSIS Right hallux, 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 Margin appears viable. 01/30/2020956 CLINICAL DIAGNOSIS Right hallux gangrene 01/29/20201303 GROSS DIAGNOSIS Received in formalin labeled "right hallux" and consists of a fragment of hallux 2.5 x 1 x 1 cm. An area of gangrenous changes is noted. Health Unit Clerk sections are submitted in two after decalcification. -OA 01/29/2020 - 1303 Signed SALINA SAUNDERS MD 01/30/2020956 Procedures Date Code Description Status 01/28/2020 03978 Amputation Metatarsal W/Toe Comp leted Medical Devices Description No Information Available Encounters Type Date Location Provider Dx Diagnosis Office Visit 01/22/2020 2:30p [place] [facility] Micheal Hansen DPM E11.621 Type 2 [...] das DPM Plan of Treatment Future Appointment(s):* 02/02/2020 2:45 pm - Micheal Hansen DPM at [facility] Functional Status Description No Information Available Mental Status Description No Information Available Referrals Description No Information Available
--- OUTSIDE RECORDS SUMMARY | 2020-04-12 19:15 | CCD ---
Continuity of Care Document (CCD) Created on: 02/18/2020 Shaji Hermann External Reference #: [id number] : [id number] Sex: Male Author Hermann Banuelos DPM Organization Unknown Address [address] [place] [address], [facility] 2 [place] [address] Phone [phone] Care Team Providers Care Clamshell Operator Name Role Phone MD Inocente Ledesma AUTM [phone] Christelle Cook MD AUTShelby [phone] Problems Active Problems Provider Date Type 2 diabetes mellitus with ulcer Micheal Hansen DPM Ons et: 01/26/2020 Pressure ulcer of right foot stage 4 Michael Hansen DPM On set: 01/26/2020 Gangrenous disorder [...] 25mcg/0.5ML Injection José Lawrence M.D. Paradigm Pump [place] 3ML 3ml Alex Portillo Sure-T Infusion Set [...] H/L Range Note Laboratory test finding 01/28/2020 [facility] Bedside Glucose 154 mg/dL High 80-115 Laboratory test finding 01/28/2020 [facility] Pathology Request For Service (SEE NOTE) 1 Laboratory test finding 01/28/2020 [facility] Bedside Glucose 91 mg/dL Normal 80-115 1 FINAL DIAGNOSIS Right hallux, 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 Margin appears viable. 01/30/2020956 CLINICAL DIAGNOSIS Right hallux gangrene 01/29/20201303 GROSS DIAGNOSIS Received in formalin labeled "right hallux" and consists of a fragment of hallux 2.5 x 1 x 1 cm. An area of gangrenous changes is noted. Order Booker sections are submitted in two after decalcification. -OA 01/29/20201303 Signed ADJAPONG,SALINA MD 01/30/2020 0957 Procedures Date Code Description Status 01/28/2020 77852 Amputation Metatarsal W/Toe Comp leted Medical Devices Description No Information Available Encounters Type Date Location Provider Dx Diagnosis Office Visit 02/02/2020 2:45p [place] [facility] Micheal Hansen DPM Z48.89 Encounter for other specified surgical aftercare Office Visit 01/22/2020 2:30p [place] [facility] Micheal Hansen DPM E11.621 Type 2 diabetes mellitus with foot ulcer L89.894 Pressure ulcer of other site , stage 4 I96 Gangrene, not elsewhere clas sified M79.674 Pain in right toe(s) Assessments Date Code Description Provider 02/13/2020 Z48.89 Encounter for other specified [place] [...] 2:00 pm - Micheal Hansen DPM at [facility] Functional Status Description No Information Available Mental Status Description No Information Available Referrals Refer to Dr Reason for Referral Status Appt Date Micheal Hansen DPM Created 3 [facility] [address] [place] [address] [phone]
--- OUTSIDE RECORDS SUMMARY | 2020-04-12 19:15 | CCD ---
Author Author [facility] Organization [facility] Address Unknown Phone Unavailable Care Team Providers Care Casino Supervisor Name Role Phone Inocente Ledesma Unavailable PROBLEMS Type Condition ICD9-CM Code SQN45-ME Code Onset Dates Condition S tatus SNOMED Code Notes Problem Essential hypertension I10 Active 62937033 Problem Temporal arteritis M31.6 Active 967093581 Problem Autonomic instability G90.9 Active 85091307 Problem Type 1 diabetes mellitus with complication E10.8 Active 09955347 Problem Bipolar 1 disorder F31.9 Active 171897595 Problem Anemia of chronic disease D63.8 Active 616960 009 Problem Cataract of both eyes, unspecified cataract type H 26.9 Active 75140664 Problem Adrenal insufficiency E27.40 Active 915686507 Problem Chronic gastritis without bleeding, unspecified gastri tis type K29.50 Active 85271486 Problem Benign prostatic hyperplasia with lower urinary tract symptoms N40.1 Active 909432778722372 Problem 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 9 Active 9360409371402294 Problem History of left below knee amputation Z89.512 Ac tive 426023587 Problem Chronic obstructive pulmonary disease, unspecified COPD ty pe J44.9 Active 27877715 Problem 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 L97.519 Active Problem Type 1 diabetes mellitus with foot ulcer E10.621 Active 318922746860318 Problem Type 1 diabetes mellitus with other specified complication E10.69 Active 28403990 Problem Type 2 diabetes mellitus with foot ulcer E11.621 Active 466254311 ALLERGIES No Known Allergies ENCOUNTERS from 1960 to 2020-02-20 Encounter Location Date Provider Diagnosis [facility] [address] [place] [address] Jan Inocente Ledesma IMMUNIZATIONS Vaccine Route Administration [...] School Language: Question Answer Notes Languages spoken: Venezuelan Jainism: Question Answer Notes Jainism 08 Temple Alcohol Screening: Question Answer Notes Did you [...] Information RESULTS No Results REASON FOR VISIT [facility] follow up Apt. MEDICAL (GENERAL) HISTORY Type Description Date Medical [...] Provider Name:Inocente Ledesma, 10:15:00 AM, [address] [place], [address], Insurance Providers Payer Name Payer Address Payer Phone Insured Name Patient Relati onship to Insured Coverage Start Date Coverage End Date MEDICARE COMPLETE [facility] [address] [address] [facility] [id number] SEBASTIEN GARCIA self MEDICAID [facility] [address] [facility] [id number] SEBASTIEN GARCIA self
--- OUTSIDE RECORDS SUMMARY | 2020-04-12 19:16 | CCD ---
Author Author [facility] Organization [facility] Address Unknown Phone Unavailable Care Team Providers Care Bell Valet Name Role Phone Hanna Boss MD Unavailable Unavailable Hanna Boss MD Unavailable Unavailable Hanna Boss MD Unavailable Unavailable Hanna Boss MD Unavailable Unavailable Hanna Boss MD Unavailable Unavailable Hanna Boss MD Unavailable Unavailable Hanna Boss MD Unavailable Unavailable Hanna Boss MD Unavailable Unavailable Hanna Boss MD Unavailable Unavailable Hanna Boss MD Unavailable Unavailable Hanna Boss MD Unavailable Unavailable Hanna Boss MD Unavailable Unavailable Hanna Boss MD Unavailable Unavailable Hanna Boss MD Unavailable Unavailable Michelle SARABIA MD Unavailable Unavailable Michelle SARABIA MD Unavailable Unavailable Michelle SARABIA MD Unavailable Unavailable Michelle SARABIA MD Unavailable Unavailable Michelle SARABIA MD Unavailable Unavailable Michelle SARABIA MD Unavailable Unavailable Michelle SARABIA MD Unavailable Unavailable Michelle SARABIA MD Unavailable Unavailable Michelle SARABIA MD Unavailable Unavailable Michelle SARABIA MD Unavailable Unavailable Michelle SARABIA MD Unavailable Unavailable Michelle SARABIA MD Unavailable Unavailable Michelle SARABIA MD Unavailable Unavailable Michelle SARABIA MD Unavailable Unavailable Michelle SARABIA MD Unavailable Unavailable Michelle SARABIA MD Unavailable Unavailable Michelle SARABIA MD Unavailable Unavailable Michelle SARABIA MD Unavailable Unavailable Michelle SARABIA MD Unavailable Unavailable Michelle SARABIA MD Unavailable Unavailable Michelle SARABIA MD Unavailable Unavailable Michelle SARABIA MD Unavailable Unavailable Michelle SARABIA MD Unavailable Unavailable Michelle SARABIA MD Unavailable Unavailable Michelle SARABIA MD Unavailable Unavailable Michelle SARABIA MD Unavailable Unavailable Michelle SARABIA MD Unavailable Unavailable Michelle SARABIA MD Unavailable Unavailable Michelle SARABIA MD Unavailable Unavailable Michelle SARABIA MD Unavailable Unavailable Michelle SARABIA MD Unavailable Unavailable Michelle SARABIA MD Unavailable Unavailable Michelle SARABIA MD Unavailable Unavailable Zeeshan CHAPAW DPM Unavailable Unavailable SAMMI R MOOSE DPM Unavailable Unavailable SAMMI R MOOSE DPM Unavailable Unavailable SAMMI, R MOOSE DPM Unavailable Unavailable MAJSALENA R MOOSE DPM Unavailable Unavailable MAJSALENA R MOOSE DPM Unavailable Unavailable MAJSALENA, R MOOSE DPM Unavailable Unavailable MAJSALENA, R MOOSE DPM Unavailable Unavailable MAJSALENA, R MOOSE DPM Unavailable Unavailable MAJSALENA, R MOOSE DPM Unavailable Unavailable MAJAK, R MOOSE DPM Unavailable Unavailable MAJAK, R MOOSE DPM Unavailable Unavailable MAJAK, R MOOSE DPM Unavailable Unavailable MAJAK, R MOOSE DPM Unavailable Unavailable MAJAK, R MOOSE DPM Unavailable Unavailable MAJAK, R MOOSE DPM Unavailable Unavailable MAJAK, R MOOSE DPM Unavailable Unavailable MAJAK, R MOOSE DPM Unavailable Unavailable MAJSALENA, R MOOSE DPM Unavailable Unavailable MAJAK, R MOOSE DPM Unavailable Unavailable MAJAK, R MOOSE DPM Unavailable Unavailable MAJAK, R MOOSE DPM Unavailable Unavailable MAJSALENA, R MOOSE DPM Unavailable Unavailable MAJSALENA, R MOOSE DPM Unavailable Unavailable MAJSALENA, R MOOSE DPM Unavailable Unavailable MAJAK, R MOOSE DPM Unavailable Unavailable MAJAK, R MOOSE DPM Unavailable Unavailable MAJAK, R MOOSE DPM Unavailable Unavailable MAJAK, R MOOSE DPM Unavailable Unavailable MAJAK, R MOOSE DPM Unavailable Unavailable Dumont, L Florencia RPA Unavailable Unavailable Dumont, L Florencia RPA Unavailable Unavailable Dumont, L Florencia RPA Unavailable Unavailable Dumont, L Florencia RPA Unavailable Unavailable Dumont, L Florencia RPA Unavailable Unavailable Dumont, L Florencia RPA Unavailable Unavailable Dumont, L Florencia RPA Unavailable Unavailable Dumont, L Florencia RPA Unavailable Unavailable Dumont, L Florencia RPA Unavailable Unavailable Dumont, L Florencia RPA Unavailable Unavailable Dumont, L Florencia RPA Unavailable Unavailable Dmuont, L Florencia RPA Unavailable Unavailable Dumont, L Florencia RPA Unavailable Unavailable Dumont, L Florencia RPA Unavailable Unavailable Dumont, L Florencia RPA Unavailable Unavailable Dumont, L Florencia RPA Unavailable Unavailable Dumont, L Florencia RPA Unavailable Unavailable Dumont, L Florencia RPA Unavailable Unavailable Dumont, L Florencia RPA Unavailable Unavailable Dumont, L Florencia RPA Unavailable Unavailable Dumont, L Florencia RPA Unavailable Unavailable Dumont, L Florencia RPA Unavailable Unavailable Dumont, L Florencia RPA Unavailable Unavailable Dumont, L Florencia RPA Unavailable Unavailable Dumont, L Florencia RPA Unavailable Unavailable Dumont, L Florencia RPA Unavailable Unavailable Dumont, L Florencia RPA Unavailable Unavailable Dumont, L Florencia RPA Unavailable Unavailable Dumont, L Florencia RPA Unavailable Unavailable Dumont, L Florencia RPA Unavailable Unavailable Dumont, L Florencia RPA Unavailable Unavailable Dumont, L Florencia RPA Unavailable Unavailable Christopher CAPPS MD Unavailable Unavailable Christopher CAPPS MD Unavailable Unavailable Christopher CAPPS MD Unavailable Unavailable Christopher CAPPS MD Unavailable Unavailable Christopher CAPPS MD Unavailable Unavailable Chrisotpher CAPPS MD Unavailable Unavailable Christopher CAPPS MD Unavailable Unavailable Christopher CAPPS MD Unavailable Unavailable Christopher CAPPS MD Unavailable Unavailable Christopher CAPPS MD Unavailable Unavailable Christopher CAPPS MD Unavailable Unavailable Christopher CAPPS MD Unavailable Unavailable Christopher CAPPS MD Unavailable Unavailable Christopher CAPPS MD Unavailable Unavailable Christopher CAPPS MD Unavailable Unavailable Christopher CAPPS MD Unavailable Unavailable Christopher CAPPS MD Unavailable Unavailable Christopher CAPPS MD Unavailable Unavailable Christopher CAPPS MD Unavailable Unavailable Christopher CAPPS MD Unavailable Unavailable Christopher CAPPS MD Unavailable Unavailable Christopher CAPPS MD Unavailable Unavailable Christopher CAPPS MD Unavailable Unavailable Christopher CAPPS MD Unavailable Unavailable Christopher CAPPS MD Unavailable Unavailable Christopher CAPPS MD Unavailable Unavailable Christopher CAPPS MD Unavailable Unavailable Christopher CAPPS MD Unavailable Unavailable Christopher CAPPS MD Unavailable Unavailable Christopher CAPPS MD Unavailable Unavailable Christopher CAPPS MD Unavailable Unavailable Christopher CAPPS MD Unavailable Unavailable Christopher CAPPS MD Unavailable Unavailable Shelby Kuhn MD Unavailable Unavailable Shelby Kuhn MD Unavailable Unavailable Shelby Kuhn MD Unavailable Unavailable Shelby Kuhn MD Unavailable Unavailable Shelby Kuhn MD Unavailable Unavailable Shelby Kuhn MD Unavailable Unavailable Shelby Kuhn MD Unavailable Unavailable Shelby Kuhn MD Unavailable Unavailable Shelby Kuhn MD Unavailable Unavailable Shelby Kuhn MD Unavailable Unavailable Shelby Kuhn MD Unavailable Unavailable Shelby Kuhn MD Unavailable Unavailable Shelby Kuhn MD Unavailable Unavailable Shelby Kuhn MD Unavailable Unavailable Shelby Kuhn MD Unavailable Unavailable Shelby Kuhn MD Unavailable Unavailable Shelby Kuhn MD Unavailable Unavailable Shelby Kuhn MD Unavailable Unavailable Shelby Kuhn MD Unavailable Unavailable Shelby Kuhn MD Unavailable Unavailable Shelby Kuhn MD Unavailable Unavailable Shelby Kuhn MD Unavailable Unavailable Shelby Kuhn MD Unavailable Unavailable Shelby Kuhn MD Unavailable Unavailable Shelby Kuhn MD Unavailable Unavailable Shelby Kuhn MD Unavailable Unavailable Shelby Kuhn MD Unavailable Unavailable Shelby Kuhn MD Unavailable Unavailable Shelby Khun MD Unavailable Unavailable Shelby Kuhn MD Unavailable Unavailable Shelby Kuhn MD Unavailable Unavailable Shelby Kuhn MD Unavailable Unavailable Shelby Kuhn MD Unavailable Unavailable Re-disclosure Warning The records that you are about to access may contain information from federally-assisted alcohol or drug abuse programs. If such information is present, then the following federally mandated warning applies: This information has been disclosed to you from records protected by federal confidentiality rules (42 CFR part 2). The federal rules prohibit you from making any further disclosure of this information unless further disclosure is expressly permitted by the written consent of the person to whom it pertains or as otherwise permitted by 42 CFR part 2. A general authorization for the release of medical or other information is NOT sufficient for this purpose. The Federal rules restrict any use of the information to criminally investigate or prosecute any alcohol or drug abuse patient.The records that you are about to access may contain highly sensitive health information, the redisclosure of which is protected by Article 27-F of the [facility] Public Health law. If you continue you may have access to information: Regarding HIV / AIDS; Provided by facilities licensed or operated by the [facility] Office of Mental Health; or Provided by the [facility] Office for People With Developmental Disabilities. If such information is present, then the following [facility] mandated warning applies: This information has been disclosed to you from confidential records which are protected by state law. State law prohibits you from making any further disclosure of this information without the specific written consent of the person to whom it pertains, or as otherwise permitted by law. Any unauthorized further disclosure in violation of state law may result in a fine or intermediate sentence or both. A general authorization for the release of medical or other information is NOT sufficient authorization for further disc losure. Family History Family Member Name Family Member Gender Family Member Status Date o f Status Description Data Source(s) Unknown Unknown Problem MED[facility] ([facility]) father Encounters Encounter Providers Location Date Indications Data Source(s ) [place] [address] [facility] [place] [address] 03/31/2020 12:00:00 AM EST eCW1 ([facility]) [place] [address] [facility] [place] [address] 03/31/2020 12:00:00 AM EST eCW1 ([facility]) Unknown [address] [facility] [place] [address] 03/29/2020 12:00:00 AM EST eCW1 ([facility]) Unknown [address] [facility] [address] 03/24/2020 12:00:00 AM EST eCW1 ([facility]) Unknown [address] [facility] [address] 03/10/2020 12:00:00 AM EST eCW1 ([facility]) Outpatient Attender: Alex Kuhn MD CPSCAORT-CPSCAEND 03/02 02:32:00 PM EST - 03/02/2020 02:33:00 PM EST E10.65 [facility] E10.65 Patient discharged. Unknown [address] [place] [phone] 03/01/2020 12:00:00 AM EST eCW1 [facility]) Outpatient Attender: Kathy Mcnair/Анна/Indra/ Talon 02/23/2020 12:30:00 PM EST [facility] ([facility]) ([id number]) For Template [place] [address] [place] [phone] 02/23/2020 12:00:00 AM EST eCW1 ([facility]) Unknown [address] [facility] [id number] 02/20/2020 12:00:00 AM EST eCW1 ([facility]) Office Visit, Est Pt., Level 2 FC [address] [place] [address] 02/19/2020 12:00:00 AM EST eCW1 ([facility]) Unknown [address] [facility] [address] 02/19/2020 12:00:00 AM EST eCW1 [facility]) Office Visit Attender: MOOSE CHAPA [facility] Office 01/31 12:00:00 PM EST [facility] ([facility] Unknown [address] [facility] [id number] 02/18/2020 12:00:00 AM EST eCW1 ([facility]) Unknown [address] [facility] [address] 02/10/2020 12:00:00 AM EST eCW1 ([facility]) Outpatient [address] [facility] [address] 02/09/2020 12:00:00 AM EST eCW1 ([facility]) Unknown [address] [facility] [address] 02/04/2020 12:00:00 AM EST eCW1 ([facility]) Office Visit Attender: MOOSE CHAPA [facility] Office 05/2019 01:45:00 PM EST [facility] Unknown [address] [facility] [id number] 01/26/2020 12:00:00 AM EDT eCW1 ([facility]) Outpatient Attender: MOOSE CHAPA [facility] Office 01/01 02:30:00 PM EDT [facility] ([facility] Outpatient Attender: Florencia Mcnair/Анна/Indra/Zeeshan mcdowell 01/20/2020 11:30:00 AM EDT MED[facility] ([facility] Outpatient [address] [facility] [id number] 01/19/2020 12:00:00 AM EDT eCW1 ([facility]) ([id number]) For Template [place] [address] [place] [address] 01/09/2020 12:00:00 AM EDT eCW1 ([facility]) Unknown [address] [facility] [id number] 01/01/2020 12:00:00 AM EDT eCW1 ([facility]) Unknown [address] [place] [address] 12/30/2019 12:00:00 AM EDT eCW1 ([facility]) Outpatient Attender: Florencia Dumont RPA Xu/[place]/Indra/R eindl 12/17/2019 09:00:00 AM EDT [facility] ([facility]) Outpatient Attender: Alex Kuhn MD CPSCAORT-CPSCAEND 11/30 02:51:00 PM EDT - 12/01/2019 02:52:00 PM EDT E10.65 [facility] E10.65 Patient discharged. Outpatient Attender: DILSHAD Mcnair/[place]/Ang el/Reindl 11/05/2019 11:30:00 AM EDT [facility] ([facility]) Outpatient Attender: RAISA SARABIA MD Xu/[place]/Indra/ Reindl 11/04/2019 11:20:00 AM EDT [facility] ([facility]) Outpatient Attender: Florencia Dumont RPA Xu/[place]/Indra/R eindl 10/16/2019 10:00:00 AM EDT [facility] ([facility]) [place] [address] [facility] [place] [address] 10/16/2019 12:00:00 AM EDT eCW1 ([facility]) Outpatient Attender: RAISA Mcnair/[place]/Indra/ Reindl 10/07/2019 11:20:00 AM EDT [facility] ([facility]) Outpatient Attender: Florencia Dumont RPA Xu/[place]/Indra/R eindl 09/25/2019 01:30:00 PM EDT [facility] ([facility]) Outpatient Attender: Florencia Dumont RPA Xu/[place]/Indra/R eindl 09/24/2019 10:00:00 AM EDT [facility] ([facility] Outpatient [address] [facility] [place] [address] 09/18/2019 12:00:00 AM EDT eCW1 ([facility]) Unknown [address] [facility] [place] [address] 09/12/2019 12:00:00 AM EDT eCW1 ([facility]) Outpatient Attender: RAISA Mcnair/Анна/Indra/ Talon 09/09/2019 11:35:00 AM EDT [facility] ([facility]) Unknown [address] [facility] [place] [address] 09/05/2019 12:00:00 AM EDT eCW1 ([facility]) Unknown [address] [facility] [place] [address] 09/03/2019 12:00:00 AM EDT eCW1 ([facility]) Outpatient 08/28/2019 09:03:00 AM EDT [facility] Unknown [address] [facility] [place] [address] 08/26/2019 12:00:00 AM EDT eCW1 ([facility]) Outpatient Attender: Alex Kuhn MD CPSCAORT-CPSCAEND 08/19 02:44:00 PM EDT - 08/20/2019 02:45:00 PM EDT [facility] [address] [facility] [place] [address] 08/20/2019 12:00:00 AM EDT eCW1 ([facility] [address] [facility] [place] [address] 08/19/2019 12:00:00 AM EDT eCW1 ([facility] [address] [facility] [place] [address] 08/19/2019 12:00:00 AM EDT eCW1 ([facility]) Outpatient 08/13/2019 02:22:00 PM EDT [facility] [address] [facility] [place] [address] 08/12/2019 12:00:00 AM EDT [facility]1 [facility] [address] [facility] [place] [address] 08/07/2019 12:00:00 AM EDT eCW1 ([facility] [address] [facility] [place] [address] 08/05/2019 12:00:00 AM EDT eCW1 ([facility]) [facility] [address] [facility] [place] [address] 08/04/2019 12:00:00 AM EDT eCW1 ([facility]) [facility] [address] [place] [address] 06/25/2019 12:00:00 AM EDT eCW1 [facility] [address] [place] [address] 06/19/2019 12:00:00 AM EDT eCW1 ([facility]) [facility] [address] [place] [phone] 06/18/2019 12:00:00 AM EDT eCW1 ([facility]) [facility] [address] [place] [phone] 06/06/2019 12:00:00 AM EST eCW1 ([facility]) [facility] [address] [place] [address] [place] [address] 04/30/2019 12:00:00 AM EST eCW1 ([facility]) Outpatient Attender: Alex Kuhn MD CPSCAORT-CPSCAEND 04/24 03:04:00 PM EST - 04/24/2019 03:05:00 PM EST E10.65 [facility] E10.65 Patient discharged. [facility] [address] [facility] [address] 04/22/2019 12:00:00 AM EST eCW1 ([facility]) [facility] [address] [facility] [place] [address] 04/15/2019 12:00:00 AM EST eCW1 ([facility]) [facility] [address] [facility] [place] [address] 04/07/2019 12:00:00 AM EST eCW1 ([facility]) [facility] LeRmaria alejandra [address] [facility] [place] [address] 02/25/2019 12:00:00 AM EST eCW1 ([facility]) [facility] LeRmaria alejandra [address] [facility] [place] [address] 02/20/2019 12:00:00 AM EST eCW1 ([facility]) [facility] Lermaria alejandra [address] [facility] [place] [address] 02/13/2019 12:00:00 AM EST eCW1 ([facility]) Outpatient Attender: Alex Kuhn MD CPSCAORT-CPSCAEND 01/14 02:06:00 PM EDT - 01/14/2019 02:07:00 PM EDT E10.65 [facility] E10.65 Patient discharged. Medications Medication Brand Name Start Date Product Form Dose Route Admi nistrative Instructions Pharmacy Instructions Status Indications Reaction Description Data Source(s) Misc. Devices - UNK 03/11/2020 12:00:00 AM EST active Misc. Devices - eCW1 ([facility]) Misc. Devices - UNK 03/11/2020 12:00:00 AM EST active Misc. Devices - eCW1 ([facility]) Misc. Devices - UNK 03/11/2020 12:00:00 AM EST active Misc. Devices - eCW1 ([facility]) Misc. Devices - UNK 03/11/2020 12:00:00 AM EST active Misc. Devices - eCW1 ([facility]) Misc. Devices - UNK 03/11/2020 12:00:00 AM EST active Misc. Devices - eCW1 ([facility]) Misc. Devices - UNK 03/11/2020 12:00:00 AM EST active Misc. Devices - eCW1 ([facility]) Wheelchair - Wheelchair - 02/24/2020 12:00:00 AM EST active Wheelchair - eCW1 ([facility]) Wheelchair - Wheelchair - 02/24/2020 12:00:00 AM EST active Wheelchair - eCW1 ([facility]) Wheelchair - Wheelchair - 02/24/2020 12:00:00 AM EST active Wheelchair - eCW1 ([facility]) Wheelchair - Wheelchair - 02/24/2020 12:00:00 AM EST active Wheelchair - eCW1 ([facility]) Wheelchair - Wheelchair - 02/24/2020 12:00:00 AM EST active Wheelchair - eCW1 ([facility]) Wheelchair - Wheelchair - 02/24/2020 12:00:00 AM EST active Wheelchair - eCW1 ([facility]) Wheelchair - Wheelchair - 02/24/2020 12:00:00 AM EST active Wheelchair - eCW1 ([facility]) Wheelchair - Wheelchair - 02/24/2020 12:00:00 AM EST active Wheelchair - eCW1 ([facility]) Wheelchair - Wheelchair - 02/24/2020 12:00:00 AM EST active Wheelchair - eCW1 ([facility]) Cephalexin 500 MG Oral Capsule Cephalexin 02/02/2020 12:00:00 AM EST ORAL active [facility] tramadol hydrochloride 50 MG Oral Tablet Tramadol HCL 02/02/2020 12:00:00 AM EST active [facility] Sucralfate 100 MG/ML Oral Suspension Sucralfate 10/23/2019 12:00:00 A M EDT ORAL active MEDENT ([facility] ) pantoprazole 40 MG Delayed Release Oral Tablet Pantoprazole Sodium 10/07/2019 12:00:00 AM EDT active M EDENT ([facility] ) Finasteride 5 MG Oral Tablet [Proscar] Proscar 5 MG Proscar 5 MG 09/05/2019 12:00:00 AM EDT 1.0 {tablet} active Pr cassidy 5 MG eCW1 ([facility]) Finasteride 5 MG Oral Tablet [Proscar] Proscar 5 MG Proscar 5 MG 09/05/2019 12:00:00 AM EDT 1.0 {tablet} suspended Proscar 5 MG eCW1 ([facility]) Finasteride 5 MG Oral Tablet [Proscar] Proscar 5 MG Proscar 5 MG 09/05/2019 12:00:00 AM EDT 1.0 {tablet} suspended Proscar 5 MG eCW1 ([facility]) Finasteride 5 MG Oral Tablet [Proscar] Proscar 5 MG Proscar 5 MG 09/05/2019 12:00:00 AM EDT 1.0 {tablet} active Pr cassidy 5 MG eCW1 ([facility]) Finasteride 5 MG Oral Tablet [Proscar] Proscar 5 MG Proscar 5 MG 09/05/2019 12:00:00 AM EDT 1.0 {tablet} suspended Proscar 5 MG eCW1 ([facility]) Finasteride 5 MG Oral Tablet [Proscar] Proscar 5 MG Proscar 5 MG 09/05/2019 12:00:00 AM EDT 1.0 {tablet} suspended Proscar 5 MG eCW1 ([facility]) Finasteride 5 MG Oral Tablet [Proscar] Proscar 5 MG Proscar 5 MG 09/05/2019 12:00:00 AM EDT 1.0 {tablet} active Pr cassidy 5 MG eCW1 ([facility]) Finasteride 5 MG Oral Tablet [Proscar] Proscar 5 MG Proscar 5 MG 09/05/2019 12:00:00 AM EDT 1.0 {tablet} active Pr cassidy 5 MG eCW1 ([facility]) Finasteride 5 MG Oral Tablet [Proscar] Proscar 5 MG Proscar 5 MG 09/05/2019 12:00:00 AM EDT 1.0 {tablet} active Pr cassidy 5 MG eCW1 ([facility]) Finasteride 5 MG Oral Tablet [Proscar] Proscar 5 MG Proscar 5 MG 09/05/2019 12:00:00 AM EDT 1.0 {tablet} suspended Proscar 5 MG eCW1 ([facility]) Finasteride 5 MG Oral Tablet [Proscar] Proscar 5 MG Proscar 5 MG 09/05/2019 12:00:00 AM EDT 1.0 {tablet} suspended Proscar 5 MG eCW1 ([facility]) Finasteride 5 MG Oral Tablet [Proscar] Proscar 5 MG Proscar 5 MG 09/05/2019 12:00:00 AM EDT 1.0 {tablet} active Pr cassidy 5 MG eCW1 ([facility]) Finasteride 5 MG Oral Tablet [Proscar] Proscar 5 MG Proscar 5 MG 09/05/2019 12:00:00 AM EDT 1.0 {tablet} active Pr cassidy 5 MG eCW1 ([facility]) Finasteride 5 MG Oral Tablet [Proscar] Proscar 5 MG Proscar 5 MG 09/05/2019 12:00:00 AM EDT 1.0 {tablet} active Pr cassidy 5 MG eCW1 ([facility]) Finasteride 5 MG Oral Tablet [Proscar] Proscar 5 MG Proscar 5 MG 09/05/2019 12:00:00 AM EDT 1.0 {tablet} active Pr cassidy 5 MG eCW1 ([facility]) Finasteride 5 MG Oral Tablet [Proscar] Proscar 5 MG Proscar 5 MG 09/05/2019 12:00:00 AM EDT 1.0 {tablet} active Pr cassidy 5 MG eCW1 ([facility]) Finasteride 5 MG Oral Tablet [Proscar] Proscar 5 MG Proscar 5 MG 09/05/2019 12:00:00 AM EDT 1.0 {tablet} suspended Proscar 5 MG eCW1 ([facility]) Finasteride 5 MG Oral Tablet [Proscar] Proscar 5 MG Proscar 5 MG 09/05/2019 12:00:00 AM EDT 1.0 {tablet} suspended Proscar 5 MG eCW1 (Formerly [facility]) Finasteride 5 MG Oral Tablet [Proscar] Proscar 5 MG Proscar 5 MG 09/05/2019 12:00:00 AM EDT 1.0 {tablet} active Pr cassidy 5 MG eCW1 (Formerly [facility]) Finasteride 5 MG Oral Tablet [Proscar] Proscar 5 MG Proscar 5 MG 09/05/2019 12:00:00 AM EDT 1.0 {tablet} active Pr cassidy 5 MG eCW1 (Formerly [facility]) Finasteride 5 MG Oral Tablet [Proscar] Proscar 5 MG Proscar 5 MG 09/05/2019 12:00:00 AM EDT 1.0 {tablet} active Pr cassidy 5 MG eCW1 (Formerly [facility]) Finasteride 5 MG Oral Tablet [Proscar] Proscar 5 MG Proscar 5 MG 09/05/2019 12:00:00 AM EDT 1.0 {tablet} active Pr cassidy 5 MG eCW1 (Formerly [facility]) Finasteride 5 MG Oral Tablet [Proscar] Proscar 5 MG Proscar 5 MG 09/05/2019 12:00:00 AM EDT 1.0 {tablet} suspended Proscar 5 MG eCW1 (Formerly [facility]) Finasteride 5 MG Oral Tablet [Proscar] Proscar 5 MG Proscar 5 MG 09/05/2019 12:00:00 AM EDT 1.0 {tablet} active Pr cassidy 5 MG eCW1 (Formerly [facility]) Finasteride 5 MG Oral Tablet [Proscar] Proscar 5 MG Proscar 5 MG 09/05/2019 12:00:00 AM EDT 1.0 {tablet} active Pr cassidy 5 MG eCW1 (Formerly [facility]) Insulin, Aspart, Human 100 UNT/ML Inject able Solution [NovoLog] NovoLog 100 UNIT/ML NovoLog 100 UNIT/ML 08/06/2019 12:00:00 AM EDT active NovoLog 100 UNIT/ML eCW1 (Formerly [facility]) latanoprost 0.05 MG/ML Ophthalmic Solution Latanoprost 0.005 % Latanoprost 0.005 % 08/06/2019 12:00:00 AM EDT 1.0 {drop_into_affected_eye_in_ the_evening} active Latanoprost 0.005 % eCW1 (Formerly [facility]) Prednisone 5 MG Oral Tablet PredniSONE 5 MG PredniSONE 5 MG 08/06/2019 12:00:00 AM EDT 1.0 {tablet} active PredniSONE 5 MG eCW1 (Formerly [facility]) latanoprost 0.05 MG/ML Ophthalmic Solution Latanoprost 0.005 % Latanoprost 0.005 % 08/06/2019 12:00:00 AM EDT active 1 drop into affected eye in the evening eCW1 (Formerly [facility]) Insulin, Aspart, Human 100 UNT/ML Inject able Solution [NovoLog] NovoLog 100 UNIT/ML NovoLog 100 UNIT/ML 08/06/2019 12:00:00 AM EDT active NovoLog 100 UNIT/ML eCW1 (Formerly [facility]) Insulin, Aspart, Human 100 UNT/ML Inject able Solution [NovoLog] NovoLog 100 UNIT/ML NovoLog 100 UNIT/ML 08/06/2019 12:00:00 AM EDT active NovoLog 100 UNIT/ML eCW1 (Formerly [facility]) Sucralfate 1000 MG Oral Tablet Sucralfate 1 GM Sucralfate 1 GM 08/06/2019 12:00:00 AM EDT active 1 tablet on an empty stomach eCW1 (Formerly [facility]) Acetaminophen 500 MG Oral Tablet Acetaminophen 500 MG 2019 12:00:00 AM EDT 1.0 {tablet_as_needed} active A cetaminophen 500 MG eCW1 (Formerly [facility]) latanoprost 0.05 MG/ML Ophthalmic Solution Latanoprost 0.005 % Latanoprost 0.005 % 08/06/2019 12:00:00 AM EDT 1.0 {drop_into_affected_eye_in_ the_evening} active Latanoprost 0.005 % eCW1 (Formerly [facility]) Sucralfate 1000 MG Oral Tablet Sucralfate 1 GM Sucralfate 1 GM 08/06/2019 12:00:00 AM EDT 1.0 {tablet_on_an_empty_stomach} active Sucralfate 1 GM eCW1 (Formerly [facility]) Acetaminophen 500 MG Oral Tablet Acetaminophen 500 MG 2019 12:00:00 AM EDT 1.0 {tablet_as_needed} active A cetaminophen 500 MG eCW1 (Formerly [facility]) Acetaminophen 500 MG Oral Tablet Acetaminophen 500 MG 2019 12:00:00 AM EDT 1.0 {tablet_as_needed} active A cetaminophen 500 MG eCW1 (Formerly [facility]) Sucralfate 1000 MG Oral Tablet Sucralfate 1 GM Sucralfate 1 GM 08/06/2019 12:00:00 AM EDT 1.0 {tablet_on_an_empty_stomach} active Sucralfate 1 GM eCW1 (Formerly [facility]) Prednisone 5 MG Oral Tablet PredniSONE 5 MG PredniSONE 5 MG 08/06/2019 12:00:00 AM EDT 1.0 {tablet} active PredniSONE 5 MG eCW1 (Formerly [facility]) Acetaminophen 500 MG Oral Tablet Acetaminophen 500 MG 2019 12:00:00 AM EDT 1.0 {tablet_as_needed} active A cetaminophen 500 MG eCW1 (Formerly [facility]) pantoprazole 40 MG Delayed Release Oral Tablet [Proton ix] Protonix 40 MG Protonix 40 MG 08/06/2019 12:00:00 AM EDT 1.0 {tablet} active Protonix 40 MG eCW1 (Formerly [facility]) pantoprazole 40 MG Delayed Release Oral Tablet [Proton ix] Protonix 40 MG Protonix 40 MG 08/06/2019 12:00:00 AM EDT 1.0 {tablet} suspended Protonix 40 MG eCW1 (Formerly [facility]) Insulin, Aspart, Human 100 UNT/ML Inject able Solution [NovoLog] NovoLog 100 UNIT/ML NovoLog 100 UNIT/ML 08/06/2019 12:00:00 AM EDT suspended NovoLog 100 UNIT/ML eCW1 (Formerly [facility]) latanoprost 0.05 MG/ML Ophthalmic Solution Latanoprost 0.005 % Latanoprost 0.005 % 08/06/2019 12:00:00 AM EDT 1.0 {drop_into_affected_eye_in_ the_evening} active Latanoprost 0.005 % eCW1 (Formerly [facility]) pantoprazole 40 MG Delayed Release Oral Tablet [Proton ix] Protonix 40 MG Protonix 40 MG 08/06/2019 12:00:00 AM EDT 1.0 {tablet} active Protonix 40 MG eCW1 (Formerly [facility]) pantoprazole 40 MG Delayed Release Oral Tablet [Proton ix] Protonix 40 MG Protonix 40 MG 08/06/2019 12:00:00 AM EDT 1.0 {tablet} active Protonix 40 MG eCW1 (Formerly [facility]) Sucralfate 1000 MG Oral Tablet Sucralfate 1 GM Sucralfate 1 GM 08/06/2019 12:00:00 AM EDT 1.0 {tablet_on_an_empty_stomach} active Sucralfate 1 GM eCW1 (Formerly [facility]) pantoprazole 40 MG Delayed Release Oral Tablet [Proton ix] Protonix 40 MG Protonix 40 MG 08/06/2019 12:00:00 AM EDT 1.0 {tablet} active Protonix 40 MG eCW1 (Formerly [facility]) latanoprost 0.05 MG/ML Ophthalmic Solution Latanoprost 0.005 % Latanoprost 0.005 % 08/06/2019 12:00:00 AM EDT 1.0 {drop_into_affected_eye_in_ the_evening} active Latanoprost 0.005 % eCW1 (Formerly [facility]) Sucralfate 1000 MG Oral Tablet Sucralfate 1 GM Sucralfate 1 GM 08/06/2019 12:00:00 AM EDT 1.0 {tablet_on_an_empty_stomach} active Sucralfate 1 GM eCW1 (Formerly [facility]) Prednisone 5 MG Oral Tablet PredniSONE 5 MG PredniSONE 5 MG 08/06/2019 12:00:00 AM EDT active 1 tablet eCW1 (Formerly [facility]) pantoprazole 40 MG Delayed Release Oral Tablet [Proton ix] Protonix 40 MG Protonix 40 MG 08/06/2019 12:00:00 AM EDT 1.0 {tablet} active Protonix 40 MG eCW1 (Formerly [facility]) Acetaminophen 500 MG Oral Tablet Acetaminophen 500 MG 2019 12:00:00 AM EDT active 1 tablet as neede d eCW1 (Formerly [facility]) Sucralfate 1000 MG Oral Tablet Sucralfate 1 GM Sucralfate 1 GM 08/06/2019 12:00:00 AM EDT 1.0 {tablet_on_an_empty_stomach} active Sucralfate 1 GM eCW1 (Formerly [facility]) Acetaminophen 500 MG Oral Tablet Acetaminophen 500 MG 2019 12:00:00 AM EDT 1.0 {tablet_as_needed} active A cetaminophen 500 MG eCW1 (Formerly [facility]) Acetaminophen 500 MG Oral Tablet Acetaminophen 500 MG 2019 12:00:00 AM EDT 1.0 {tablet_as_needed} active A cetaminophen 500 MG eCW1 (Formerly [facility]) latanoprost 0.05 MG/ML Ophthalmic Solution Latanoprost 0.005 % Latanoprost 0.005 % 08/06/2019 12:00:00 AM EDT 1.0 {drop_into_affected_eye_in_ the_evening} active Latanoprost 0.005 % eCW1 (Formerly [facility]) Sucralfate 1000 MG Oral Tablet Sucralfate 1 GM Sucralfate 1 GM 08/06/2019 12:00:00 AM EDT 1.0 {tablet_on_an_empty_stomach} active Sucralfate 1 GM eCW1 (Formerly [facility]) pantoprazole 40 MG Delayed Release Oral Tablet [Proton ix] Protonix 40 MG Protonix 40 MG 08/06/2019 12:00:00 AM EDT 1.0 {tablet} suspended Protonix 40 MG eCW1 (Formerly [facility]) Prednisone 5 MG Oral Tablet PredniSONE 5 MG PredniSONE 5 MG 08/06/2019 12:00:00 AM EDT 1.0 {tablet} active PredniSONE 5 MG eCW1 (Formerly [facility]) latanoprost 0.05 MG/ML Ophthalmic Solution Latanoprost 0.005 % Latanoprost 0.005 % 08/06/2019 12:00:00 AM EDT 1.0 {drop_into_affected_eye_in_ the_evening} active Latanoprost 0.005 % eCW1 (Formerly [facility]) latanoprost 0.05 MG/ML Ophthalmic Solution Latanoprost 0.005 % Latanoprost 0.005 % 08/06/2019 12:00:00 AM EDT 1.0 {drop_into_affected_eye_in_ the_evening} active Latanoprost 0.005 % eCW1 (Formerly [facility]) Acetaminophen 500 MG Oral Tablet Acetaminophen 500 MG 2019 12:00:00 AM EDT 1.0 {tablet_as_needed} active A cetaminophen 500 MG eCW1 (Formerly [facility]) Acetaminophen 500 MG Oral Tablet Acetaminophen 500 MG 2019 12:00:00 AM EDT 1.0 {tablet_as_needed} active A cetaminophen 500 MG eCW1 (Formerly [facility]) Prednisone 5 MG Oral Tablet PredniSONE 5 MG PredniSONE 5 MG 08/06/2019 12:00:00 AM EDT 1.0 {tablet} active PredniSONE 5 MG eCW1 (Formerly [facility]) Sucralfate 1000 MG Oral Tablet Sucralfate 1 GM Sucralfate 1 GM 08/06/2019 12:00:00 AM EDT active 1 tablet on an empty stomach eCW1 (Formerly [facility]) latanoprost 0.05 MG/ML Ophthalmic Solution Latanoprost 0.005 % Latanoprost 0.005 % 08/06/2019 12:00:00 AM EDT 1.0 {drop_into_affected_eye_in_ the_evening} active Latanoprost 0.005 % eCW1 (Formerly [facility]) Prednisone 5 MG Oral Tablet PredniSONE 5 MG PredniSONE 5 MG 08/06/2019 12:00:00 AM EDT 1.0 {tablet} active PredniSONE 5 MG eCW1 (Formerly [facility]) Prednisone 5 MG Oral Tablet PredniSONE 5 MG PredniSONE 5 MG 08/06/2019 12:00:00 AM EDT 1.0 {tablet} active PredniSONE 5 MG eCW1 (Formerly [facility]) Acetaminophen 500 MG Oral Tablet Acetaminophen 500 MG 2019 12:00:00 AM EDT 1.0 {tablet_as_needed} active A cetaminophen 500 MG eCW1 (Formerly [facility]) pantoprazole 40 MG Delayed Release Oral Tablet [Proton ix] Protonix 40 MG Protonix 40 MG 08/06/2019 12:00:00 AM EDT 1.0 {tablet} suspended Protonix 40 MG eCW1 (Former[facility]) pantoprazole 40 MG Delayed Release Oral Tablet [Proton ix] Protonix 40 MG Protonix 40 MG 08/06/2019 12:00:00 AM EDT 1.0 {tablet} active Protonix 40 MG eCW1 (Former[facility]) Sucralfate 1000 MG Oral Tablet Sucralfate 1 GM Sucralfate 1 GM 08/06/2019 12:00:00 AM EDT 1.0 {tablet_on_an_empty_stomach} active Sucralfate 1 GM eCW1 (Former[facility]) pantoprazole 40 MG Delayed Release Oral Tablet [Proton ix] Protonix 40 MG Protonix 40 MG 08/06/2019 12:00:00 AM EDT 1.0 {tablet} active Protonix 40 MG eCW1 (Former[facility]) latanoprost 0.05 MG/ML Ophthalmic Solution Latanoprost 0.005 % Latanoprost 0.005 % 08/06/2019 12:00:00 AM EDT 1.0 {drop_into_affected_eye_in_ the_evening} active Latanoprost 0.005 % eCW1 (Formerly [facility]) Insulin, Aspart, Human 100 UNT/ML Inject able Solution [NovoLog] NovoLog 100 UNIT/ML NovoLog 100 UNIT/ML 08/06/2019 12:00:00 AM EDT suspended NovoLog 100 UNIT/ML eCW1 (Formerly [facility]) Insulin, Aspart, Human 100 UNT/ML Inject able Solution [NovoLog] NovoLog 100 UNIT/ML NovoLog 100 UNIT/ML 08/06/2019 12:00:00 AM EDT active NovoLog 100 UNIT/ML eCW1 (Formerly [facility]) Prednisone 5 MG Oral Tablet PredniSONE 5 MG PredniSONE 5 MG 08/06/2019 12:00:00 AM EDT 1.0 {tablet} active PredniSONE 5 MG eCW1 (Former[facility]) Insulin, Aspart, Human 100 UNT/ML Inject able Solution [NovoLog] NovoLog 100 UNIT/ML NovoLog 100 UNIT/ML 08/06/2019 12:00:00 AM EDT active NovoLog 100 UNIT/ML eCW1 (Former[facility]) Prednisone 5 MG Oral Tablet PredniSONE 5 MG PredniSONE 5 MG 08/06/2019 12:00:00 AM EDT active 1 tablet eCW1 (Formerly [facility]) Acetaminophen 500 MG Oral Tablet Acetaminophen 500 MG 2019 12:00:00 AM EDT 1.0 {tablet_as_needed} active A cetaminophen 500 MG eCW1 (Formerly [facility]) Acetaminophen 500 MG Oral Tablet Acetaminophen 500 MG 2019 12:00:00 AM EDT 1.0 {tablet_as_needed} active A cetaminophen 500 MG eCW1 (Formerly [facility]) latanoprost 0.05 MG/ML Ophthalmic Solution Latanoprost 0.005 % Latanoprost 0.005 % 08/06/2019 12:00:00 AM EDT 1.0 {drop_into_affected_eye_in_ the_evening} active Latanoprost 0.005 % eCW1 (Formerly [facility]) Prednisone 5 MG Oral Tablet PredniSONE 5 MG PredniSONE 5 MG 08/06/2019 12:00:00 AM EDT 1.0 {tablet} active PredniSONE 5 MG eCW1 (Former[facility]) Insulin, Aspart, Human 100 UNT/ML Inject able Solution [NovoLog] NovoLog 100 UNIT/ML NovoLog 100 UNIT/ML 08/06/2019 12:00:00 AM EDT active NovoLog 100 UNIT/ML eCW1 ([facility]) Prednisone 5 MG Oral Tablet PredniSONE 5 MG PredniSONE 5 MG 08/06/2019 12:00:00 AM EDT 1.0 {tablet} active PredniSONE 5 MG eCW1 (Formerly [facility]) Prednisone 5 MG Oral Tablet PredniSONE 5 MG PredniSONE 5 MG 08/06/2019 12:00:00 AM EDT 1.0 {tablet} active PredniSONE 5 MG eCW1 (Formerly [facility]) Sucralfate 1000 MG Oral Tablet Sucralfate 1 GM Sucralfate 1 GM 08/06/2019 12:00:00 AM EDT 1.0 {tablet_on_an_empty_stomach} active Sucralfate 1 GM eCW1 (Formerly [facility]) Sucralfate 1000 MG Oral Tablet Sucralfate 1 GM Sucralfate 1 GM 08/06/2019 12:00:00 AM EDT 1.0 {tablet_on_an_empty_stomach} active Sucralfate 1 GM eCW1 (Former[facility]) Acetaminophen 500 MG Oral Tablet Acetaminophen 500 MG 2019 12:00:00 AM EDT 1.0 {tablet_as_needed} active A cetaminophen 500 MG eCW1 (Former[facility]) Acetaminophen 500 MG Oral Tablet Acetaminophen 500 MG 2019 12:00:00 AM EDT 1.0 {tablet_as_needed} active A cetaminophen 500 MG eCW1 (Formerly [facility]) Prednisone 5 MG Oral Tablet PredniSONE 5 MG PredniSONE 5 MG 08/06/2019 12:00:00 AM EDT 1.0 {tablet} active PredniSONE 5 MG eCW1 (Former[facility]) latanoprost 0.05 MG/ML Ophthalmic Solution Latanoprost 0.005 % Latanoprost 0.005 % 08/06/2019 12:00:00 AM EDT 1.0 {drop_into_affected_eye_in_ the_evening} active Latanoprost 0.005 % eCW1 (Formerly [facility]) pantoprazole 40 MG Delayed Release Oral Tablet [Proton ix] Protonix 40 MG Protonix 40 MG 08/06/2019 12:00:00 AM EDT 1.0 {tablet} active Protonix 40 MG eCW1 (Formerly [facility]) Insulin, Aspart, Human 100 UNT/ML Inject able Solution [NovoLog] NovoLog 100 UNIT/ML NovoLog 100 UNIT/ML 08/06/2019 12:00:00 AM EDT active NovoLog 100 UNIT/ML eCW1 (Formerly [facility]) Acetaminophen 500 MG Oral Tablet Acetaminophen 500 MG 2019 12:00:00 AM EDT 1.0 {tablet_as_needed} active A cetaminophen 500 MG eCW1 (Formerly [facility]) pantoprazole 40 MG Delayed Release Oral Tablet [Proton ix] Protonix 40 MG Protonix 40 MG 08/06/2019 12:00:00 AM EDT 1.0 {tablet} active Protonix 40 MG eCW1 (Former[facility]) Prednisone 5 MG Oral Tablet PredniSONE 5 MG PredniSONE 5 MG 08/06/2019 12:00:00 AM EDT 1.0 {tablet} active PredniSONE 5 MG eCW1 (Formerly [facility]) Insulin, Aspart, Human 100 UNT/ML Inject able Solution [NovoLog] NovoLog 100 UNIT/ML NovoLog 100 UNIT/ML 08/06/2019 12:00:00 AM EDT suspended NovoLog 100 UNIT/ML eCW1 (Formerly [facility]) Acetaminophen 500 MG Oral Tablet Acetaminophen 500 MG 2019 12:00:00 AM EDT 1.0 {tablet_as_needed} active A cetaminophen 500 MG eCW1 (Formerly [facility]) Acetaminophen 500 MG Oral Tablet Acetaminophen 500 MG 2019 12:00:00 AM EDT 1.0 {tablet_as_needed} active A cetaminophen 500 MG eCW1 (Formerly [facility]) Acetaminophen 500 MG Oral Tablet Acetaminophen 500 MG 2019 12:00:00 AM EDT active 1 tablet as neede d eCW1 (Formerly [facility]) pantoprazole 40 MG Delayed Release Oral Tablet [Proton ix] Protonix 40 MG Protonix 40 MG 08/06/2019 12:00:00 AM EDT 1.0 {tablet} suspended Protonix 40 MG eCW1 ([facility]) Insulin, Aspart, Human 100 UNT/ML Inject able Solution [NovoLog] NovoLog 100 UNIT/ML NovoLog 100 UNIT/ML 08/06/2019 12:00:00 AM EDT active NovoLog 100 UNIT/ML eCW1 ([facility]) Prednisone 5 MG Oral Tablet PredniSONE 5 MG PredniSONE 5 MG 08/06/2019 12:00:00 AM EDT 1.0 {tablet} active PredniSONE 5 MG eCW1 (Formerly [facility]) latanoprost 0.05 MG/ML Ophthalmic Solution Latanoprost 0.005 % Latanoprost 0.005 % 08/06/2019 12:00:00 AM EDT active 1 drop into affected eye in the evening eCW1 (Formerly [facility]) Sucralfate 1000 MG Oral Tablet Sucralfate 1 GM Sucralfate 1 GM 08/06/2019 12:00:00 AM EDT 1.0 {tablet_on_an_empty_stomach} active Sucralfate 1 GM eCW1 ([facility]) Insulin, Aspart, Human 100 UNT/ML Inject able Solution [NovoLog] NovoLog 100 UNIT/ML NovoLog 100 UNIT/ML 08/06/2019 12:00:00 AM EDT active NovoLog 100 UNIT/ML eCW1 ([facility]) Insulin, Aspart, Human 100 UNT/ML Inject able Solution [NovoLog] NovoLog 100 UNIT/ML NovoLog 100 UNIT/ML 08/06/2019 12:00:00 AM EDT suspended NovoLog 100 UNIT/ML eCW1 ([facility]ly [facility]) pantoprazole 40 MG Delayed Release Oral Tablet [Proton ix] Protonix 40 MG Protonix 40 MG 08/06/2019 12:00:00 AM EDT active 1 tablet eCW1 (Formerly [facility]) Prednisone 5 MG Oral Tablet PredniSONE 5 MG PredniSONE 5 MG 08/06/2019 12:00:00 AM EDT 1.0 {tablet} active PredniSONE 5 MG eCW1 (Formerly [facility]) Prednisone 5 MG Oral Tablet PredniSONE 5 MG PredniSONE 5 MG 08/06/2019 12:00:00 AM EDT 1.0 {tablet} active PredniSONE 5 MG eCW1 (Formerly [facility]) Sucralfate 1000 MG Oral Tablet Sucralfate 1 GM Sucralfate 1 GM 08/06/2019 12:00:00 AM EDT 1.0 {tablet_on_an_empty_stomach} active Sucralfate 1 GM eCW1 (Formerly [facility]) Insulin, Aspart, Human 100 UNT/ML Inject able Solution [NovoLog] NovoLog 100 UNIT/ML NovoLog 100 UNIT/ML 08/06/2019 12:00:00 AM EDT active as directed eCW1 (Formerly [facility]) Insulin, Aspart, Human 100 UNT/ML Inject able Solution [NovoLog] NovoLog 100 UNIT/ML NovoLog 100 UNIT/ML 08/06/2019 12:00:00 AM EDT suspended NovoLog 100 UNIT/ML eCW1 ([facility]ly [facility]) pantoprazole 40 MG Delayed Release Oral Tablet [Proton ix] Protonix 40 MG Protonix 40 MG 08/06/2019 12:00:00 AM EDT 1.0 {tablet} active Protonix 40 MG eCW1 ([facility]) Insulin, Aspart, Human 100 UNT/ML Inject able Solution [NovoLog] NovoLog 100 UNIT/ML NovoLog 100 UNIT/ML 08/06/2019 12:00:00 AM EDT suspended NovoLog 100 UNIT/ML eCW1 ([facility]ly [facility]) pantoprazole 40 MG Delayed Release Oral Tablet [Proton ix] Protonix 40 MG Protonix 40 MG 08/06/2019 12:00:00 AM EDT 1.0 {tablet} suspended Protonix 40 MG eCW1 ([facility]ly [facility]) Acetaminophen 500 MG Oral Tablet Acetaminophen 500 MG 2019 12:00:00 AM EDT 1.0 {tablet_as_needed} active A cetaminophen 500 MG eCW1 (Formerly [facility]) Insulin, Aspart, Human 100 UNT/ML Inject able Solution [NovoLog] NovoLog 100 UNIT/ML NovoLog 100 UNIT/ML 08/06/2019 12:00:00 AM EDT suspended NovoLog 100 UNIT/ML eCW1 ([facility]) Prednisone 5 MG Oral Tablet PredniSONE 5 MG PredniSONE 5 MG 08/06/2019 12:00:00 AM EDT 1.0 {tablet} active PredniSONE 5 MG eCW1 (Formerly [facility]) latanoprost 0.05 MG/ML Ophthalmic Solution Latanoprost 0.005 % Latanoprost 0.005 % 08/06/2019 12:00:00 AM EDT 1.0 {drop_into_affected_eye_in_ the_evening} active Latanoprost 0.005 % eCW1 (Formerly [facility]) latanoprost 0.05 MG/ML Ophthalmic Solution Latanoprost 0.005 % Latanoprost 0.005 % 08/06/2019 12:00:00 AM EDT 1.0 {drop_into_affected_eye_in_ the_evening} active Latanoprost 0.005 % eCW1 (Formerly [facility]) Prednisone 5 MG Oral Tablet PredniSONE 5 MG PredniSONE 5 MG 08/06/2019 12:00:00 AM EDT 1.0 {tablet} active PredniSONE 5 MG eCW1 (Formerly [facility]) latanoprost 0.05 MG/ML Ophthalmic Solution Latanoprost 0.005 % Latanoprost 0.005 % 08/06/2019 12:00:00 AM EDT 1.0 {drop_into_affected_eye_in_ the_evening} active Latanoprost 0.005 % eCW1 (Formerly [facility]) latanoprost 0.05 MG/ML Ophthalmic Solution Latanoprost 0.005 % Latanoprost 0.005 % 08/06/2019 12:00:00 AM EDT 1.0 {drop_into_affected_eye_in_ the_evening} active Latanoprost 0.005 % eCW1 (Formerly [facility]) Acetaminophen 500 MG Oral Tablet Acetaminophen 500 MG 2019 12:00:00 AM EDT 1.0 {tablet_as_needed} active A cetaminophen 500 MG eCW1 ([facility]ly [facility]) Sucralfate 1000 MG Oral Tablet Sucralfate 1 GM Sucralfate 1 GM 08/06/2019 12:00:00 AM EDT 1.0 {tablet_on_an_empty_stomach} active Sucralfate 1 GM eCW1 ([facility]ly [facility]) Acetaminophen 500 MG Oral Tablet Acetaminophen 500 MG 2019 12:00:00 AM EDT 1.0 {tablet_as_needed} active A cetaminophen 500 MG eCW1 (Formerly [facility]) latanoprost 0.05 MG/ML Ophthalmic Solution Latanoprost 0.005 % Latanoprost 0.005 % 08/06/2019 12:00:00 AM EDT 1.0 {drop_into_affected_eye_in_ the_evening} active Latanoprost 0.005 % eCW1 ([facility]ly [facility]) Sucralfate 1000 MG Oral Tablet Sucralfate 1 GM Sucralfate 1 GM 08/06/2019 12:00:00 AM EDT 1.0 {tablet_on_an_empty_stomach} active Sucralfate 1 GM eCW1 ([facility]) Insulin, Aspart, Human 100 UNT/ML Inject able Solution [NovoLog] NovoLog 100 UNIT/ML NovoLog 100 UNIT/ML 08/06/2019 12:00:00 AM EDT suspended NovoLog 100 UNIT/ML eCW1 ([facility]ly [facility]) Prednisone 5 MG Oral Tablet PredniSONE 5 MG PredniSONE 5 MG 08/06/2019 12:00:00 AM EDT 1.0 {tablet} active PredniSONE 5 MG eCW1 (Formerly [facility]) pantoprazole 40 MG Delayed Release Oral Tablet [Proton ix] Protonix 40 MG Protonix 40 MG 08/06/2019 12:00:00 AM EDT 1.0 {tablet} suspended Protonix 40 MG eCW1 ([facility]) pantoprazole 40 MG Delayed Release Oral Tablet [Proton ix] Protonix 40 MG Protonix 40 MG 08/06/2019 12:00:00 AM EDT 1.0 {tablet} active Protonix 40 MG eCW1 ([facility]) Sucralfate 1000 MG Oral Tablet Sucralfate 1 GM Sucralfate 1 GM 08/06/2019 12:00:00 AM EDT 1.0 {tablet_on_an_empty_stomach} active Sucralfate 1 GM eCW1 ([facility]) Acetaminophen 500 MG Oral Tablet Acetaminophen 500 MG 2019 12:00:00 AM EDT 1.0 {tablet_as_needed} active A cetaminophen 500 MG eCW1 (Formerly [facility]) pantoprazole 40 MG Delayed Release Oral Tablet [Proton ix] Protonix 40 MG Protonix 40 MG 08/06/2019 12:00:00 AM EDT 1.0 {tablet} active Protonix 40 MG eCW1 (Formerly [facility]) Sucralfate 1000 MG Oral Tablet Sucralfate 1 GM Sucralfate 1 GM 08/06/2019 12:00:00 AM EDT 1.0 {tablet_on_an_empty_stomach} active Sucralfate 1 GM eCW1 (Formerly [facility]) Sucralfate 1000 MG Oral Tablet Sucralfate 1 GM Sucralfate 1 GM 08/06/2019 12:00:00 AM EDT 1.0 {tablet_on_an_empty_stomach} active Sucralfate 1 GM eCW1 (Formerly [facility]) pantoprazole 40 MG Delayed Release Oral Tablet [Proton ix] Protonix 40 MG Protonix 40 MG 08/06/2019 12:00:00 AM EDT 1.0 {tablet} active Protonix 40 MG eCW1 (Formerly [facility]) Sucralfate 1000 MG Oral Tablet Sucralfate 1 GM Sucralfate 1 GM 08/06/2019 12:00:00 AM EDT 1.0 {tablet_on_an_empty_stomach} active Sucralfate 1 GM eCW1 (Formerly [facility]) pantoprazole 40 MG Delayed Release Oral Tablet [Proton ix] Protonix 40 MG Protonix 40 MG 08/06/2019 12:00:00 AM EDT 1.0 {tablet} suspended Protonix 40 MG eCW1 (Formerly [facility]) latanoprost 0.05 MG/ML Ophthalmic Solution Latanoprost 0.005 % Latanoprost 0.005 % 08/06/2019 12:00:00 AM EDT 1.0 {drop_into_affected_eye_in_ the_evening} active Latanoprost 0.005 % eCW1 (Formerly [facility]) Insulin, Aspart, Human 100 UNT/ML Inject able Solution [NovoLog] NovoLog 100 UNIT/ML NovoLog 100 UNIT/ML 08/06/2019 12:00:00 AM EDT suspended NovoLog 100 UNIT/ML eCW1 (Formerly [facility]) Sucralfate 1000 MG Oral Tablet Sucralfate 1 GM Sucralfate 1 GM 08/06/2019 12:00:00 AM EDT 1.0 {tablet_on_an_empty_stomach} active Sucralfate 1 GM eCW1 (Formerly [facility]) Insulin, Aspart, Human 100 UNT/ML Inject able Solution [NovoLog] NovoLog 100 UNIT/ML NovoLog 100 UNIT/ML 08/06/2019 12:00:00 AM EDT active NovoLog 100 UNIT/ML eCW1 (Formerly [facility]) Sucralfate 1000 MG Oral Tablet Sucralfate 1 GM Sucralfate 1 GM 08/06/2019 12:00:00 AM EDT 1.0 {tablet_on_an_empty_stomach} active Sucralfate 1 GM eCW1 (Formerly [facility]) pantoprazole 40 MG Delayed Release Oral Tablet [Proton ix] Protonix 40 MG Protonix 40 MG 08/06/2019 12:00:00 AM EDT 1.0 {tablet} suspended Protonix 40 MG eCW1 (Formerly [facility]) pantoprazole 40 MG Delayed Release Oral Tablet [Proton ix] Protonix 40 MG Protonix 40 MG 08/06/2019 12:00:00 AM EDT 1.0 {tablet} active Protonix 40 MG eCW1 (Formerly [facility]) Prednisone 5 MG Oral Tablet PredniSONE 5 MG PredniSONE 5 MG 08/06/2019 12:00:00 AM EDT 1.0 {tablet} active PredniSONE 5 MG eCW1 (Formerly [facility]) Prednisone 5 MG Oral Tablet PredniSONE 5 MG PredniSONE 5 MG 08/06/2019 12:00:00 AM EDT 1.0 {tablet} active PredniSONE 5 MG eCW1 (Formerly [facility]) Prednisone 5 MG Oral Tablet PredniSONE 5 MG PredniSONE 5 MG 08/06/2019 12:00:00 AM EDT 1.0 {tablet} active PredniSONE 5 MG eCW1 (Formerly [facility]) pantoprazole 40 MG Delayed Release Oral Tablet [Proton ix] Protonix 40 MG Protonix 40 MG 08/06/2019 12:00:00 AM EDT active 1 tablet eCW1 (Formerly [facility]) Sucralfate 1000 MG Oral Tablet Sucralfate 1 GM Sucralfate 1 GM 08/06/2019 12:00:00 AM EDT 1.0 {tablet_on_an_empty_stomach} active Sucralfate 1 GM eCW1 (Formerly [facility]) Acetaminophen 500 MG Oral Tablet Acetaminophen 500 MG 2019 12:00:00 AM EDT 1.0 {tablet_as_needed} active A cetaminophen 500 MG eCW1 (Formerly [facility]) latanoprost 0.05 MG/ML Ophthalmic Solution Latanoprost 0.005 % Latanoprost 0.005 % 08/06/2019 12:00:00 AM EDT 1.0 {drop_into_affected_eye_in_ the_evening} active Latanoprost 0.005 % eCW1 (Formerly [facility]) Prednisone 5 MG Oral Tablet PredniSONE 5 MG PredniSONE 5 MG 08/06/2019 12:00:00 AM EDT 1.0 {tablet} active PredniSONE 5 MG eCW1 (Formerly [facility]) latanoprost 0.05 MG/ML Ophthalmic Solution Latanoprost 0.005 % Latanoprost 0.005 % 08/06/2019 12:00:00 AM EDT 1.0 {drop_into_affected_eye_in_ the_evening} active Latanoprost 0.005 % eCW1 (Formerly [facility]) latanoprost 0.05 MG/ML Ophthalmic Solution Latanoprost 0.005 % Latanoprost 0.005 % 08/06/2019 12:00:00 AM EDT 1.0 {drop_into_affected_eye_in_ the_evening} active Latanoprost 0.005 % eCW1 (Formerly [facility]) Insulin, Aspart, Human 100 UNT/ML Inject able Solution [NovoLog] NovoLog 100 UNIT/ML NovoLog 100 UNIT/ML 08/06/2019 12:00:00 AM EDT active NovoLog 100 UNIT/ML eCW1 (Formerly [facility]) Sucralfate 1000 MG Oral Tablet Sucralfate 1 GM Sucralfate 1 GM 08/06/2019 12:00:00 AM EDT 1.0 {tablet_on_an_empty_stomach} active Sucralfate 1 GM eCW1 (Formerly [facility]) latanoprost 0.05 MG/ML Ophthalmic Solution Latanoprost 0.005 % Latanoprost 0.005 % 08/06/2019 12:00:00 AM EDT 1.0 {drop_into_affected_eye_in_ the_evening} active Latanoprost 0.005 % eCW1 (Formerly [facility]) Insulin, Aspart, Human 100 UNT/ML Inject able Solution [NovoLog] NovoLog 100 UNIT/ML NovoLog 100 UNIT/ML 08/06/2019 12:00:00 AM EDT suspended NovoLog 100 UNIT/ML eCW1 (Formerly [facility]) Acetaminophen 500 MG Oral Tablet Acetaminophen 500 MG 2019 12:00:00 AM EDT 1.0 {tablet_as_needed} active A cetaminophen 500 MG eCW1 (Formerly [facility]) Acetaminophen 500 MG Oral Tablet Acetaminophen 500 MG 2019 12:00:00 AM EDT 1.0 {tablet_as_needed} active A cetaminophen 500 MG eCW1 (Formerly [facility]) Prednisone 5 MG Oral Tablet PredniSONE 5 MG PredniSONE 5 MG 08/06/2019 12:00:00 AM EDT 1.0 {tablet} active PredniSONE 5 MG eCW1 (Formerly [facility]) Acetaminophen 500 MG Oral Tablet Acetaminophen 500 MG 2019 12:00:00 AM EDT 1.0 {tablet_as_needed} active A cetaminophen 500 MG eCW1 (Formerly [facility]) Sucralfate 1000 MG Oral Tablet Sucralfate 1 GM Sucralfate 1 GM 08/06/2019 12:00:00 AM EDT 1.0 {tablet_on_an_empty_stomach} active Sucralfate 1 GM eCW1 (Formerly [facility]) Sucralfate 1000 MG Oral Tablet Sucralfate 1 GM Sucralfate 1 GM 08/06/2019 12:00:00 AM EDT 1.0 {tablet_on_an_empty_stomach} active Sucralfate 1 GM eCW1 (Formerly [facility]) Insulin, Aspart, Human 100 UNT/ML Inject able Solution [NovoLog] NovoLog 100 UNIT/ML NovoLog 100 UNIT/ML 08/06/2019 12:00:00 AM EDT suspended NovoLog 100 UNIT/ML eCW1 (Formerly [facility]) Acetaminophen 500 MG Oral Tablet Acetaminophen 500 MG 2019 12:00:00 AM EDT 1.0 {tablet_as_needed} active A cetaminophen 500 MG eCW1 (Formerly [facility]) latanoprost 0.05 MG/ML Ophthalmic Solution Latanoprost 0.005 % Latanoprost 0.005 % 08/06/2019 12:00:00 AM EDT 1.0 {drop_into_affected_eye_in_ the_evening} active Latanoprost 0.005 % eCW1 (Formerly [facility]) Insulin, Aspart, Human 100 UNT/ML Inject able Solution [NovoLog] NovoLog 100 UNIT/ML NovoLog 100 UNIT/ML 08/06/2019 12:00:00 AM EDT active NovoLog 100 UNIT/ML eCW1 (Formerly [facility]) pantoprazole 40 MG Delayed Release Oral Tablet [Proton ix] Protonix 40 MG Protonix 40 MG 08/06/2019 12:00:00 AM EDT 1.0 {tablet} active Protonix 40 MG eCW1 (Formerly [facility]) Insulin, Aspart, Human 100 UNT/ML Inject able Solution [NovoLog] NovoLog 100 UNIT/ML NovoLog 100 UNIT/ML 08/06/2019 12:00:00 AM EDT active as directed eCW1 (Formerly [facility]) latanoprost 0.05 MG/ML Ophthalmic Solution Latanoprost 0.005 % Latanoprost 0.005 % 08/06/2019 12:00:00 AM EDT 1.0 {drop_into_affected_eye_in_ the_evening} active Latanoprost 0.005 % eCW1 (Formerly [facility]) Insulin, Aspart, Human 100 UNT/ML Inject able Solution [NovoLog] NovoLog 100 UNIT/ML NovoLog 100 UNIT/ML 08/06/2019 12:00:00 AM EDT active NovoLog 100 UNIT/ML eCW1 (Formerly [facility]) latanoprost 0.05 MG/ML Ophthalmic Solution Latanoprost 0.005 % Latanoprost 0.005 % 08/06/2019 12:00:00 AM EDT 1.0 {drop_into_affected_eye_in_ the_evening} active Latanoprost 0.005 % eCW1 (Formerly [facility]) pantoprazole 40 MG Delayed Release Oral Tablet [Proton ix] Protonix 40 MG Protonix 40 MG 08/06/2019 12:00:00 AM EDT 1.0 {tablet} active Protonix 40 MG eCW1 (Formerly [facility]) Prednisone 5 MG Oral Tablet PredniSONE 5 MG PredniSONE 5 MG 08/06/2019 12:00:00 AM EDT 1.0 {tablet} active PredniSONE 5 MG eCW1 (Formerly [facility]) Sucralfate 1000 MG Oral Tablet Sucralfate 1 GM Sucralfate 1 GM 08/06/2019 12:00:00 AM EDT 1.0 {tablet_on_an_empty_stomach} active Sucralfate 1 GM eCW1 (Formerly [facility]) latanoprost 0.05 MG/ML Ophthalmic Solution Latanoprost 0.005 % Latanoprost 0.005 % 08/06/2019 12:00:00 AM EDT 1.0 {drop_into_affected_eye_in_ the_evening} active Latanoprost 0.005 % eCW1 (Formerly [facility]) Insulin, Aspart, Human 100 UNT/ML Inject able Solution [NovoLog] NovoLog 100 UNIT/ML NovoLog 100 UNIT/ML 08/06/2019 12:00:00 AM EDT suspended NovoLog 100 UNIT/ML eCW1 (Formerly [facility]) Sucralfate 1000 MG Oral Tablet Sucralfate 1 GM Sucralfate 1 GM 08/06/2019 12:00:00 AM EDT 1.0 {tablet_on_an_empty_stomach} active Sucralfate 1 GM eCW1 (Formerly [facility]) pantoprazole 40 MG Delayed Release Oral Tablet [Proton ix] Protonix 40 MG Protonix 40 MG 08/06/2019 12:00:00 AM EDT 1.0 {tablet} suspended Protonix 40 MG eCW1 (Formerly [facility]) Prednisone 5 MG Oral Tablet PredniSONE 5 MG PredniSONE 5 MG 08/06/2019 12:00:00 AM EDT 1.0 {tablet} active PredniSONE 5 MG eCW1 (Formerly [facility]) Citalopram 40 MG Oral Tablet [Celexa] Celexa 40 MG Celexa 40 MG 04/17/2019 12:00:00 AM EST active 1 tab e CW1 (Formerly [facility]) Citalopram 40 MG Oral Tablet [Celexa] Celexa 40 MG Celexa 40 MG 04/17/2019 12:00:00 AM EST active Celexa 4 0 MG eCW1 (Formerly [facility]) Citalopram 40 MG Oral Tablet [Celexa] Celexa 40 MG Celexa 40 MG 04/17/2019 12:00:00 AM EST active Celexa 4 0 MG eCW1 (Formerly [facility]) Celexa 40 MG UNK 04/17/2019 12:00:00 AM EST activ e 1 tab eCW1 (Formerly [facility]) Citalopram 40 MG Oral Tablet [Celexa] Celexa 40 MG Celexa 40 MG 04/17/2019 12:00:00 AM EST active Celexa 4 0 MG eCW1 (Formerly [facility]) Citalopram 40 MG Oral Tablet [Celexa] Celexa 40 MG Celexa 40 MG 04/17/2019 12:00:00 AM EST active Celexa 4 0 MG eCW1 (Formerly [facility]) Citalopram 40 MG Oral Tablet [Celexa] Celexa 40 MG Celexa 40 MG 04/17/2019 12:00:00 AM EST active 1 tab e CW1 (Formerly [facility]) Citalopram 40 MG Oral Tablet [Celexa] Celexa 40 MG Celexa 40 MG 04/17/2019 12:00:00 AM EST active 1 tab e CW1 (Formerly [facility]) Citalopram 40 MG Oral Tablet [Celexa] Celexa 40 MG Celexa 40 MG 04/17/2019 12:00:00 AM EST active Celexa 4 0 MG eCW1 (Formerly [facility]) Citalopram 40 MG Oral Tablet [Celexa] Celexa 40 MG Celexa 40 MG 04/17/2019 12:00:00 AM EST active Celexa 4 0 MG eCW1 (Formerly [facility]) Citalopram 40 MG Oral Tablet [Celexa] Celexa 40 MG Celexa 40 MG 04/17/2019 12:00:00 AM EST active Celexa 4 0 MG eCW1 (Formerly [facility]) Citalopram 40 MG Oral Tablet [Celexa] Celexa 40 MG Celexa 40 MG 04/17/2019 12:00:00 AM EST active Celexa 4 0 MG eCW1 (Formerly [facility]) Citalopram 40 MG Oral Tablet [Celexa] Celexa 40 MG Celexa 40 MG 04/17/2019 12:00:00 AM EST active Celexa 4 0 MG eCW1 (Formerly [facility]) Citalopram 40 MG Oral Tablet [Celexa] Celexa 40 MG Celexa 40 MG 04/17/2019 12:00:00 AM EST active Celexa 4 0 MG eCW1 (Formerly [facility]) Citalopram 40 MG Oral Tablet [Celexa] Celexa 40 MG Celexa 40 MG 04/17/2019 12:00:00 AM EST active Celexa 4 0 MG eCW1 (Formerly [facility]) Citalopram 40 MG Oral Tablet [Celexa] Celexa 40 MG Celexa 40 MG 04/17/2019 12:00:00 AM EST active Celexa 4 0 MG eCW1 (Formerly [facility]) Citalopram 40 MG Oral Tablet [Celexa] Celexa 40 MG Celexa 40 MG 04/17/2019 12:00:00 AM EST active Celexa 4 0 MG eCW1 (Formerly [facility]) Citalopram 40 MG Oral Tablet [Celexa] Celexa 40 MG Celexa 40 MG 04/17/2019 12:00:00 AM EST active Celexa 4 0 MG eCW1 (Formerly [facility]) Citalopram 40 MG Oral Tablet [Celexa] Celexa 40 MG Celexa 40 MG 04/17/2019 12:00:00 AM EST active Celexa 4 0 MG eCW1 (Formerly [facility]) Citalopram 40 MG Oral Tablet [Celexa] Celexa 40 MG Celexa 40 MG 04/17/2019 12:00:00 AM EST active 1 tab e CW1 (Formerly [facility]) Citalopram 40 MG Oral Tablet [Celexa] Celexa 40 MG Celexa 40 MG 04/17/2019 12:00:00 AM EST active Celexa 4 0 MG eCW1 (Formerly [facility]) Citalopram 40 MG Oral Tablet [Celexa] Celexa 40 MG Celexa 40 MG 04/17/2019 12:00:00 AM EST active Celexa 4 0 MG eCW1 (Formerly [facility]) Citalopram 40 MG Oral Tablet [Celexa] Celexa 40 MG Celexa 40 MG 04/17/2019 12:00:00 AM EST active Celexa 4 0 MG eCW1 (Formerly [facility]) Citalopram 40 MG Oral Tablet [Celexa] Celexa 40 MG Celexa 40 MG 04/17/2019 12:00:00 AM EST active Celexa 4 0 MG eCW1 (Formerly [facility]) Citalopram 40 MG Oral Tablet [Celexa] Celexa 40 MG Celexa 40 MG 04/17/2019 12:00:00 AM EST active Celexa 4 0 MG eCW1 (Formerly [facility]) Citalopram 40 MG Oral Tablet [Celexa] Celexa 40 MG Celexa 40 MG 04/17/2019 12:00:00 AM EST active Celexa 4 0 MG eCW1 (Formerly [facility]) Citalopram 40 MG Oral Tablet [Celexa] Celexa 40 MG Celexa 40 MG 04/17/2019 12:00:00 AM EST active Celexa 4 0 MG eCW1 (Formerly [facility]) Citalopram 40 MG Oral Tablet [Celexa] Celexa 40 MG Celexa 40 MG 04/17/2019 12:00:00 AM EST active Celexa 4 0 MG eCW1 (Formerly [facility]) Citalopram 40 MG Oral Tablet [Celexa] Celexa 40 MG Celexa 40 MG 04/17/2019 12:00:00 AM EST active Celexa 4 0 MG eCW1 (Formerly [facility]) Citalopram 40 MG Oral Tablet [Celexa] Celexa 40 MG Celexa 40 MG 04/17/2019 12:00:00 AM EST active Celexa 4 0 MG eCW1 (Formerly [facility]) Insurance Providers Payer name Policy type / Coverage type Policy ID Covered libertarian ID Covered libertarian's relationship to laboy Policy Laboy Plan Information MEDICARE COMPLETE [id number] SP [id number] EMEDNY [id number] SP [id number] [facility] MEDICARE [id number] S [id number] MEDICAID [id number] S [id number] MEDICARE COMPLETE [id number] SP [id number] MEDICARE [id number] SP [id number] MEDICARE COMPLETE-[facility] O [id number] S [id number] MEDICAID [id number] S [id number] [facility] MEDICARE [id number] S [id number] [id number] SP [id number] [facility] [id number] SP [id number] MEDICARE [id number] SP [id number] WELLCARE [id number] SP [id number] EMEDNY [id number] SP [id number] MEDICARE [id number] SP [id number] MEDICARE COMPLETE [id number] SP [id number] MEDICARE COMPLETE [id number] SP [id number] WELLCARE [id number] SP [id number] WELLCARE [id number] SP [id number] WELLCARE O [id number] S [id number] WELLCARE [id number] S [id number] WELLCARE O [id number] S [id number] MEDICARE [id number] SP [id number] MEDICAID [id number] SP [id number] MEDICARE C [id number] S [id number] [id number] MEDICAID [id number] SP [id number] WELLCARE [id number] S [id number] MEDICARE [id number] S [id number] WELLCARE [id number] S [id number] MEDICARE -RECURRING [id number] 18 [id number] MEDICAID -RECURRING [id number] ANSI-Medicaid [id number] ANSI-Medicare Part B [id number] ANSI-Medicaid [id number] ANSI-Medicare Part B [id number] ANSI-Medicare Part B [id number] ANSI-Medicaid [id number] ANSI-Medicare Part B [id number] ANSI-Medicaid [id number] ANSI-Medicaid [id number] ANSI-Medicare Part B [id number] ANSI-Medicaid [id number] ANSI-Medicare Part B [id number] ANSI-Medicaid [id number] ANSI-Medicare Part B [id number] ANSI-Medicaid [id number] ANSI-Medicare Part B [id number] ANSI-Medicare Part B [id number] ANSI-Medicaid [id number] ANSI-Medicare Part B [id number] ANSI-Medicaid [id number] ANSI-Medicare Part B [id number] ANSI-Medicaid [id number] ANSI-Medicare Part B [id number] ANSI-Medicaid [id number] ANSI-Medicaid [id number] ANSI-Medicare Part B [id number] ANSI-Medicare Part B [id number] ANSI-Medicaid [id number] MEDICARE -RECURRING [id number] ANSI-Medicaid [id number] ANSI-Medicare Part B [id number] ANSI-Medicaid [id number] ANSI-Medicare Part B [id number] ANSI-Medicare Part B [id number] ANSI-Medicaid [id number] Medicaid [place] Medigap Part B [id number] Self [id number] Medicare [place] Medicare Primary [id number] Self [id number] ANSI-Medicare Part B [id number] ANSI-Medicaid [id number] ANSI-Medicaid [id number] ANSI-Medicare Part B [id number] ANSI-Medicaid [id number] ANSI-Medicare Part B [id number] ANSI-Medicare Part B [id number] ANSI-Medicaid [id number] ANSI-Medicare Part B [id number] ANSI-Medicaid [id number] MEDICARE [id number] ANSI-Medicare Part B [id number] ANSI-Medicaid [id number] ANSI-Medicaid [id number] ANSI-Medicare Part B [id number] ANSI-Medicare Part B [id number] ANSI-Medicaid [id number] ANSI-Medicaid [id number] ANSI-Medicare Part B [id number] ANSI-Medicaid [id number] ANSI-Medicare Part B [id number] ANSI-Medicare Part B [id number] ANSI-Medicaid [id number] ANSI-Medicaid [id number] ANSI-Medicare Part B [id number] ANSI-Medicaid [id number] ANSI-Medicare Part B [id number] ANSI-Medicaid [id number] ANSI-Medicare Part B [id number] ANSI-Medicaid [id number] ANSI-Medicare Part B [id number] ANSI-Medicaid [id number] ANSI-Medicare Part B [id number] ANSI-Medicare Part B [id number] ANSI-Medicaid [id number] MEDICARE [id number] SP [id number] A ANSI-Medicare Part B [id number] ANSI-Medicaid [id number] [employer] RHONDA [id number] SELF [id number] MEDICARE [id number] SELF [id number] A MEDICARE PART A [id number] Patient [id number] [employer] G[employer]RIEL RHONDA UNAVAILABLE SELF UNAVAILABLE PERSONAL PAY UNAVAILABLE SELF UNAVA ILABLE MEDICARE C [id number] S [id number] A [place] MEDICARE PART B C [id number] S [id number] MEDICAID [id number] SP [id number] [place] [id number] Self [id number] [place] Primary [id number] Self [id number] [facility] C [id number] S [id number] [place] [id number] Self [id number] [place] [id number] Self [id number] [place] [id number] Self [id number] [place] Primary [id number] Self [id number] MEDICAID [id number] SP [id number] MEDICAID [id number] SP [id number] MEDICAID [id number] Self [id number] MEDICARE A [id number] Self [id number] A MEDICAID -O/P [id number] MEDICARE -O/P [id number] 18 [id number] OTHER WORKERS COMPENSATION [id number] SP [id number] MEDICAID -CLINIC [id number] MEDICARE -CLINIC [id number] 18 [id number] WORKMANS COMPENSATION -O/ [id number] 18 [id number] MEDICAID -PHYSICIAN [id number] WORKMANS COMPENSATION -O/P [id number] 18 [id number] MEDICARE -PHYSICIAN [id number] 18 [id number] Problems, Conditions, and Diagnoses Code Display Name Description Problem Type Effective Dates Data Source(s) S88.111A [id number] Below-knee amputation of right lower extr emity Problem 04/06/2020 12:00:00 AM EST eCW1 ([facility]) Z89.512 [id number] 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 Problem 03/11/2020 12:00:00 AM EST eCW1 ([facility]) Z89.511 [id number] Acquired absence of right leg below knee Problem 03/11/2020 12:00:00 AM EST eCW1 ([facility]) S88.119A 509867085 Amputation below knee Problem 02/24/2020 12: 00:00 AM EST eCW1 ([facility]) M86.9 [id number] Osteomyelitis of right foot, unspecif ied type Problem 02/19/2020 12:00:00 AM EST eCW1 ([facility]) [id number] O/E - Amputated left below knee O/E - Amputated left below knee Problem 01/26/2020 12:00:00 AM EDT [facility] ([facility] 83908144 Pain in limb Pain in limb Problem 01/26/2020 12:00:00 A M EDT [facility] ([facility] 099411271 Gangrenous disorder Gangrenous disorder Problem 1 12:00:00 AM EDT [facility] ([facility] [id number] Pressure ulcer of right foot stage 4 Pre ssure ulcer of right foot stage 4 Problem 01/26/2020 12:00:00 AM EDT [facility] ([facility] 433249495 Type 2 diabetes mellitus with ulcer Type 2 diabetes mellitus with ulcer Problem 01/26/2020 12:00:00 AM EDT [facility] ([facility] L97.514 488137932 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 Problem 12/31/2019 12:00:00 AM EDT eCW1 ([facility]) E11.621 617611128 Type 2 diabetes mellitus with foot ulcer Problem 12/31/2019 12:00:00 AM EDT eCW1 ([facility]) E10.69 54202756 Type 1 diabetes mellitus with ot her specified complication Problem 10/17/2019 12:00:00 AM EDT eCW1 ([facility]) L97.519 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 Non-pressure chronic ulcer of other part of right foot with unspecified severity Problem 09/18/2019 12:00:00 AM EDT eCW1 ([facility]) E10.621 Foot ulcer due to type 1 diabetes [facility] Type 1 diabetes mellitus with foot ulcer Problem 09/18/2019 12:00:00 AM EDT eCW1 ([facility]) 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 Diagnosis 03/02/2020 02:32:00 PM [facility] Z96.41 Presence of insulin pump (external) (int ernal) PRESENCE OF INSULIN PUMP (EXTERNAL) (INTERNAL) Diagnosis 03/02/2020 02:32:00 PM [facility] E10.65 Type 1 diabetes mellitus with hyperglyce sera TYPE 1 DIABETES MELLITUS WITH HYPERGLYCEMIA Diagnosis 03/02/2020 02:32:00 PM [facility] E27.40 Unspecified adrenocortical insufficiency UNSPECIFIED ADRENOCORTICAL INSUFFICIENCY Diagnosis 04/24/2019 03:04:00 PM [facility] Surgeries/Procedures Procedure Description Date Indications Data Source(s) Amputation Below Knee 03/03/2020 12:00:00 AM [facility] outpatient clinic visit for assessment and ma nagement of a patient Hospital Outpatient Clinic Visit 03/02/2020 12:00:00 AM [facility] COLLECTION VENOUS BLOOD VENIPUNCTURE ROUTINE VENIPUNCTURE 12:00:00 AM [facility] HEMOGLOBIN GLYCOSYLATED A1C GLYCOSYLATED HEMOGLOBIN TEST 04/2019 12:00:00 AM [facility] FINE NEEDLE ASPIRATION W/O IMAGING GUIDANCE 02/23/2020 12:00:00 AM [facility] eCW1 (Formerly [facility]) Amputation Metatarsal W/Toe 01/28/2020 12:00:00 AM EDT [facility] ([facility] FINE NEEDLE ASPIRATION W/O IMAGING GUIDANCE 01/19/2020 12:00:00 AM EDT eCW (Formerly [facility]) FINE NEEDLE ASPIRATION W/O IMAGING GUIDANCE 01/09/2020 12:00:00 AM EDT eCW1 (Formerly [facility]) Revascularization,Endovascular,Transluminal Angioplasty 12/31/2019 12:00:00 AM EDT [facility] ([facility], ) REVSC OPN/PRQ TIB/FABIENNE W/ANGIOPLASTY UNI 12/31/2019 12 :00:00 AM EDT [facility] ([facility], ) REVSC OPN/PRQ TIB/FABIENNE W/ANGIOPLASTY UNI EA VSL 2019 12:00:00 AM EDT [facility] ([facility], ) Moderate Sedation Services; Same Phys Intl 15 Mins; PT >= 5 Years 12/31/2019 12:00:00 AM EDT [facility] ([facility], ) Angiography Internal Corotid Of The Ipsil Intrac Circulation 10/08/2019 12:00:00 AM EDT [facility] ([facility], ) Each Intracranial Branch Of The Internal Corotid/Vertebral 10/08/2019 12:00:00 AM EDT [facility] ([facility], ) REVSC OPN/PRQ TIB/FABIENNE W/ANGIOPLASTY UNI EA VSL 2019 12:00:00 AM EDT [facility] ([facility]) REVSC OPN/PRQ TIB/FABIENNE W/ANGIOPLASTY UNI EA VSL 2019 12:00:00 AM EDT [facility] ([facility]) Moderate Sedation Services; Same Phys Intl 15 Mins; PT >= 5 Years 10/08/2019 12:00:00 AM EDT [facility] ([facility]) Endoscopy Upper GI Biopsy 09/17/2019 12:00:00 AM EDT [facility] ([facility]) Office Visit, Est Pt., Level 2 FC 08/14/2019 12:00:00 AM EDT eCW1 (Formerly [facility]) TRANS CARE MGMT 7 DAY DISCH 08/14/2019 12:00:00 AM EDT eCW1 (Formerly [facility]) Transitional Care NO CHARGE Visit 08/07/2019 12:00:00 AM EDT eCW1 (Formerly [facility]) DSTRJ LESION ANUS EXTENSIVE 06/06/2019 12:00:00 AM EST eCW1 (Formerly [facility]) GLUC BLD GLUC MNTR DEV CLEARED FDA SPEC HOME USE GLUCOSE BLO OD TEST 04/24/2019 12:00:00 AM [facility] BASIC METABOLIC PANEL CALCIUM TOTAL METABOLIC PANEL TOTAL CA 04/24/2019 12:00:00 AM [facility] Results ID Date Data Source [id number] 03/16/2020 05:11:00 AM [facility] Name Value Range Interpretation Code Description Data Mireille rce(s) Supporting Document(s) Hemoglobin A1C % Less than 5.7% Above high normal [facility] HBA1C: Normal: Less than 5.7% Prediabetes: 5.7% to 6.4% Diabetes: 6.5% or higher HA1C % vs Estimated Average Glucose (eAG) % eAG % eAG 6% 126 mg/dL 10% 240 mg/dL 7% 154 mg/dL 11% 269 mg/dL 8% 183 mg/dL 12% 298 mg/dL 9% 212 mg/dL Reference: [employer] [employer], 2017 ID Date Data Source [id number] 02/28/2020 11:00:00 AM EST [facility] Name Value Range Interpretation Code Description Data Mireille rce(s) Supporting Document(s) SARS coronavirus 2 RNA [facility] This lab was ordered by [facility] and reported by [facility]. ID Date Data Source [id number] 01/28/2020 04:53:00 PM EDT [facility] ([facility] Name Value Range Interpretation Code Description Data Mireille rce(s) Supporting Document(s) Glucose [Mass/volume] in Capillary blood by Glucometer 154 mg/dL 80-115 Above high normal [facility] ([facility] ID Date Data Source [id number] 01/28/2020 04:09:00 PM EDT [facility] ([facility] Name Value Range Interpretation Code Description Data Mireille rce(s) Supporting Document(s) Surgical pathology study Laboratory test result [facility] ([facility] FINAL DIAGNOSIS Right hallux, 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 Margin appears viable. 01/30/2020956 CLINICAL DIAGNOSIS Right hallux gangrene 01/29/20201303 GROSS DIAGNOSIS Received in formalin labeled "right hallux" and consists of a fragment of hallux 2.5 x 1 x 1 cm. An area of gangrenous changes is noted. Circuit [employer] Clerk sections are submitted in two after decalcification. -OA 01/29/20201303 Signed SALINA SAUNDERS MD 01/30/2020956 ID Date Data Source [id number] 01/28/2020 11:26:00 AM EDT [facility] ([facility] Name Value Range Interpretation Code Description Data Mireille rce(s) Supporting Document(s) Glucose [Mass/volume] in Capillary blood by Glucometer 91 mg/dL 80- 115 [facility] ID Date Data Source [id number] 12/31/2019 11:17:00 AM EDT [facility] ([facility]) Name Value Range Interpretation Code Description Data Mireille rce(s) Supporting Document(s) Glucose [Mass/volume] in Capillary blood by Glucometer 142 mg/dL 80-115 Above high normal [facility] ([facility]) ID Date Data Source [id number] 12/31/2019 08:51:00 AM EDT [facility] ([facility]) Name Value Range Interpretation Code Description Data Mireille rce(s) Supporting Document(s) Glucose [Mass/volume] in Capillary blood by Glucometer 131 mg/dL 80-115 Above high normal [facility] ([facility]) ID Date Data Source [id number] 12/17/2019 10:05:00 AM EDT [facility] ([facility]) Name Value Range Interpretation Code Description Data Mireille rce(s) Supporting Document(s) Glucose, Fasting 158 mg/dL 70-100 Above high normal [facility] ([facility]) Blood Urea Nitrogen 15 mg/dL 7-18 Normal (applies to non-nume nelson results) [facility] ([facility]) Creatinine For GFR 1.36 mg/dL 0.70-1.30 Above high normal [facility] ([facility]) Chloride Level 105 meq/L 98-107 Normal (applies to non-numeric r esults) [facility] ([facility]) Glomerular Filtration Rate 56.9 Normal (applies to n on-numeric results) [facility]) <content>Units are mL/min/1.73 m2</content>
<content></content>
<content>Chronic Kidney Disease Staging per NKF:</content>
<content></content>
<content>Stage I & II GFR >=60 Normal to Mildly Decreased</content>
<content>Stage III GFR 30- 59 Moderately Decreased</content>
<content>Stage IV GFR 15-29 Severely Decreased</content>
<content>Stage V GFR <15 Very Little GFR Left</content>
<content>ESRD GFR <15 on NON DESTRUCTIVE TESTING SUPERVISOR</content>
<content></content> Potassium Serum 4.6 meq/L 3.5-5.1 Normal (applies to non-numeric results) [facility]) Sodium Level 139 meq/L 136-145 Normal (applies to non-numeric res ults) [facility]) Calcium Level 9.3 mg/dL 8.8-10.2 Normal (applies to non-numeric re sults) [facility]) Anion Gap 7 meq/L 8-16 Below low normal [facility] ( [facility]) Carbon Dioxide Level 27 meq/L 21-32 Normal (applies to non-num gage results) [facility]) ID Date Data Source [id number] 12/17/2019 10:05:00 AM EDT [facility]) Name Value Range Interpretation Code Description Data Mireille rce(s) Supporting Document(s) White Blood Count 6.8 10 4.0-10.0 Normal (applies to non-numeri c results) [facility] ([facility]) Red Blood Count 3.47 10 4.30-6.10 Below low normal [facility] ([facility]) Hemoglobin 11.2 g/dL 13.5-17.5 Below low normal [facility] ( [facility]) Hematocrit 32.8 % 42.0-52.0 Below low normal [facility] ( [facility]) Mean Corpuscular Volume 94.5 fl 80.0-96.0 Normal ( applies to non-numeric results) [facility]) Mean Corpuscular Hemoglobin 32.3 pg 27.0-33.0 Norm al (applies to non-numeric results) [facility]) Mean Corpuscular HGB Conc 34.1 g/dL 32.0-36.5 Normal (applies to non-numeric results) [facility] ([facility], ) Red Cell Distribution Width 12.1 % 11.5-14.5 Norm al (applies to non-numeric results) [facility]) Nucleated Red Blood Cell % 0.0 % 0-0 Normal (applies to n on-numeric results) [facility] ([facility]) Platelet Count, Automated 214 10 150-450 Normal (applies to non-numeric results) [facility]) ID Date Data Source [id number] 12/01/2019 06:43:00 PM EDT [facility] Name Value Range Interpretation Code Description Data Mireille rce(s) Supporting Document(s) Triglycerides 101 mg/dL 0-150 Normal (applies to non-numeric re sults) [facility] Cholesterol 163 mg/dL 0-200 Normal (applies to non-numeric resu lts) [facility] LDL Cholesterol,Direct 77 mg/dL <100 Normal (applies to non-n umeric results) [facility] LDL Interpretative Data Optimal <100 (mg/dL) Near optimal 100-129 (mg/dL) Borderline High 130-159 (mg/dL) High 160-189 (mg/dL) Very High >190 (mg/dL) HDL Cholesterol 73 mg/dL 40-60 Above high normal [facility] CHOL/HDL Ratio Normal (applies to non-numeric r esults) [facility] NATIONAL CHOLESTEROL GUIDEL [facility] ([facility]) guidelines for classificaton, testing and management of cholesterol levels in adults over 20 years of age. This new classification creates three categories of risk for coronary heart disease, regardless of age or sex, according to total amd LDL cholesterols levels: Based on total cholesterol level Desirable <200 mg/dl Borderline-high 200-239 mg/dl High >=240 mg/dl Based on cholesterol ratio CHD RISK CHOL/HDL RATIO MALE FEMALE 0.5 x Average 3.4 3.3 1.0 x Average 5.0 4.4 2.0 x Average 9.6 7.1 3.0 x Average 13.5 11.0 ID Date Data Source [id number] 12/01/2019 06:43:00 PM EDT [facility] Name Value Range Interpretation Code Description Data Mireille rce(s) Supporting Document(s) Sodium 138 mmol/L 137-145 Normal (applies to non-numeric resul ts) [facility] Potassium 3.5-5.1 Normal (applies to non-numeric resul ts) [facility] Chloride 105 mmol/L 98-112 Normal (applies to non-numeric resul ts) [facility] Carbon Dioxide CO2 22.0-33.0 Normal (applies to non-numer ic results) [facility] Anion Gap 4.0-11.0 Normal (applies to non-numeric resul ts) [facility] BUN 16 mg/dL 9-20 Normal (applies to non-numeric resul ts) [facility] Creatinine 0.80-1.50 Normal (applies to non-numeric resul ts) [facility] GFR 48 mL/min >60 Below low normal [facility] Result based on MDRD formula. Glucose Level 66 mg/dL 74-99 Below low normal [facility] The reference range is only applicable w hen fasting. Calcium-Uncorrected 8.4-10.2 Normal (applies to non-nume nelson results) [facility] Corrected Calcium 8.4-10.2 Normal (applies to non-numeri c results) [facility] ID Date Data Source [id number] 12/01/2019 06:43:00 PM EDT [facility] Name Value Range Interpretation Code Description Data Mireille rce(s) Supporting Document(s) Thyroid Stimulate Hormone TSH 0.358-3.740 No rmal (applies to non-numeric results) [facility] ID Date Data Source [id number] 12/01/2019 06:40:00 PM EDT [facility] Name Value Range Interpretation Code Description Data Mireille rce(s) Supporting Document(s) Creatinine,Urine Normal (applies to non-numeric results) [facility] Interpret with care as there is no estab lished reference range associated with this assay's methodology that pertains to this particular sex and/or age. Microalbumin,Urine <1.7 Normal (applies to non-numer ic results) [facility] Albumin/Creatinine Ratio,Urine Normal (applies to non-numeric results) [facility] Reference Ranges for Microalbumin,spot: Normal <30 ug/mg creatinine Microalbuminuria 30-300 ug/mg creatinine Clinical Albuminuria >300 ug/mg creatinine ID Date Data Source [id number] 12/01/2019 06:23:00 PM EDT [facility] Name Value Range Interpretation Code Description Data Mireille rce(s) Supporting Document(s) Hemoglobin A1C % Less than 5.7% Above high normal [facility] HBA1C: Normal: Less than 5.7% Prediabetes: 5.7% to 6.4% Diabetes: 6.5% or higher HA1C % vs Estimated Average Glucose (eAG) % eAG % eAG 6% 126 mg/dL 10% 240 mg/dL 7% 154 mg/dL 11% 269 mg/dL 8% 183 mg/dL 12% 298 mg/dL 9% 212 mg/dL Reference: [place] [employer], 2017 ID Date Data Source [id number] 10/08/2019 12:37:00 PM EDT [facility] Name Value Range Interpretation Code Description Data Mireille rce(s) Supporting Document(s) Glucose [Mass/volume] in Capillary blood by Glucometer 190 mg/dL 80-115 Above high normal [facility] ([facility]) ID Date Data Source [id number] 10/08/2019 09:46:00 AM T [facility]) Name Value Range Interpretation Code Description Data Mireille rce(s) Supporting Document(s) Glucose [Mass/volume] in Capillary blood by Glucometer 208 mg/dL 80-115 Above high normal [facility] ([facility]) ID Date Data Source [id number] 10/08/2019 08:33:00 AM EDT [facility]) Name Value Range Interpretation Code Description Data Mireille rce(s) Supporting Document(s) Glucose, Fasting 60 mg/dL 70-100 Below low normal [facility] ([facility]) Glomerular Filtration Rate 48.9 Below low normal [facility] ([facility]) <content>Units are mL/min/1.73 m2</content>
<content></content>
<content>Chronic Kidney Disease Staging per NKF:</content>
<content></content>
<content>Stage I & II GFR >=60 Normal to Mildly Decreased</content>
<content>Stage III GFR 30- 59 Moderately Decreased</content>
<content>Stage IV GFR 15-29 Severely Decreased</content>
<content>Stage V GFR <15 Very Little GFR Left</content>
<content>ESRD GFR <15 on NON DESTRUCTIVE TESTING SUPERVISOR</content>
<content></content> Creatinine For GFR 1.55 mg/dL 0.70-1.30 Above high normal [facility] ([facility]) Blood Urea Nitrogen 18 mg/dL 7-18 Normal (applies to non-nume nelson results) [facility] ([facility]) Potassium Serum 4.3 meq/L 3.5-5.1 Normal (applies to non-numeric results) [facility] ([facility]) Chloride Level 107 meq/L 98-107 Normal (applies to non-numeric r esults) [facility] ([facility]) Sodium Level 141 meq/L 136-145 Normal (applies to non-numeric res ults) [facility] ([facility]) Carbon Dioxide Level 26 meq/L 21-32 Normal (applies to non-num gage results) [facility]) Anion Gap 8 meq/L 8-16 Normal (applies to non-numeric resul ts) [facility] ([facility]) Calcium Level 9.3 mg/dL 8.8-10.2 Normal (applies to non-numeric re sults) [facility]) ID Date Data Source [id number] 10/08/2019 08:33:00 AM EDT [facility]) Name Value Range Interpretation Code Description Data Mireille rce(s) Supporting Document(s) White Blood Count 7.1 10 4.0-10.0 Normal (applies to non-numeri c results) [facility] ([facility]) Red Blood Count 3.97 10 4.30-6.10 Below low normal [facility] ([facility]) Hemoglobin 12.6 g/dL 13.5-17.5 Below low normal [facility] ( [facility]) Mean Corpuscular Volume 97.0 fl 80.0-96.0 Above high normal [facility] ([facility]) Hematocrit 38.5 % 42.0-52.0 Below low normal [facility] ( [facility]) Mean Corpuscular HGB Conc 32.7 g/dL 32.0-36.5 Normal (applies to non-numeric results) [facility] ([facility]) Red Cell Distribution Width 12.1 % 11.5-14.5 Norm al (applies to non-numeric results) [facility] ([facility]) Mean Corpuscular Hemoglobin 31.7 pg 27.0-33.0 Norm al (applies to non-numeric results) [facility] ([facility]) Platelet Count, Automated 206 10 150-450 Normal (applies to non-numeric results) [facility] ([facility]) Nucleated Red Blood Cell % 0.0 % 0-0 Normal (applies to n on-numeric results) [facility] ([facility]) ID Date Data Source [id number] 09/17/2019 11:28:00 AM EDT [facility]) Name Value Range Interpretation Code Description Data Mireille rce(s) Supporting Document(s) Surgical pathology study Laboratory test result [facility]) FINAL DIAGNOSIS A - Duodenal bulb, biopsy: [...] upper GI bleed and ulcer 09/17/2019 - 161 GROSS DIAGNOSIS A - Received in formalin [...] aggregate. All in one. -OA 09/17/2019 - 161 Signed SALINA SAUNDERS MD 09/18/2019 1420 ID Date Data Source [id number] 09/14/2019 10:40:00 AM EDT [facility] Name Value Range Interpretation Code Description Data Mireille rce(s) Supporting Document(s) SARS CORONAVIRUS 2 RNA [facility] This lab was ordered by [facility] and reported by [facility]. ID Date Data Source [id number] 04/24/2019 06:44:00 PM EST [facility] Name Value Range Interpretation Code Description Data Mireille rce(s) Supporting Document(s) Sodium 140 mmol/L 137-145 Normal (applies to non-numeric resul ts) [facility] Potassium 3.5-5.1 Normal (applies to non-numeric resul ts) [facility] Chloride 105 mmol/L 98-112 Normal (applies to non-numeric resul ts) [facility] Carbon Dioxide CO2 22.0-33.0 Normal (applies to non-numer ic results) [facility] Anion Gap 4.0-11.0 Normal (applies to non-numeric resul ts) [facility] BUN 14 mg/dL 9-20 Normal (applies to non-numeric resul ts) [facility] Creatinine 0.80-1.50 Normal (applies to non-numeric resul ts) [facility] GFR 52 mL/min >60 Below low normal [facility] Result based on MDRD formula. Glucose Level 67 mg/dL 74-99 Below low normal [facility] The reference range is only applicable w hen fasting. Calcium-Uncorrected 8.4-10.2 Normal (applies to non-nume nelson results) [facility] Corrected Calcium 8.4-10.2 Normal (applies to non-numeri c results) [facility] ID Date Data Source [id number] 04/24/2019 06:41:00 PM EST [facility] Name Value Range Interpretation Code Description Data Mireille rce(s) Supporting Document(s) Hemoglobin A1C % Less than 5.7% Above high normal [facility] HBA1C: Normal: Less than 5.7% Prediabetes: 5.7% to 6.4% Diabetes: 6.5% or higher HA1C % vs Estimated Average Glucose (eAG) % eAG % eAG 6% 126 mg/dL 10% 240 mg/dL 7% 154 mg/dL 11% 269 mg/dL 8% 183 mg/dL 12% 298 mg/dL 9% 212 mg/dL Reference: [employer] [employer], 2017 Procedure Social History Code Duration Value Status Description Data Source(s ) Smoking 04/06/2020 12:00:00 AM EST Former Smoker completed Former Smoker eCW1 ([facility]ly [facility]) Smoking 04/05/2020 12:00:00 AM EST Non Smoker completed Non Smoke r [facility] ([facility]) Smoking 02/25/2020 12:00:00 AM EST Former Smoker completed Former Smoker eCW1 (Formerly [facility]) Smoking 02/25/2020 12:00:00 AM EST Former Smoker completed Former Smoker eCW1 (Formerly [facility]) Smoking 02/25/2020 12:00:00 AM EST Former Smoker completed Former Smoker eCW1 (Formerly [facility]) Smoking 02/25/2020 12:00:00 AM EST Former Smoker completed Former Smoker eCW1 (Formerly [facility]) Smoking 02/25/2020 12:00:00 AM EST Former Smoker completed Former Smoker eCW1 (Formerly [facility]) Smoking 02/25/2020 12:00:00 AM EST Former Smoker completed Former Smoker eCW1 (Formerly [facility]) Smoking 02/25/2020 12:00:00 AM EST Former Smoker completed Former Smoker eCW1 ([facility]ly [facility]) Smoking 02/24/2020 12:00:00 AM EST Former Smoker completed Former Smoker eCW1 ([facility]ly [facility]) Smoking 02/19/2020 12:00:00 AM EST Former Smoker completed Former Smoker eCW1 (Formerly [facility]) Smoking 02/19/2020 12:00:00 AM EST Former Smoker completed Former Smoker eCW1 ([facility]ly [facility]) Smoking 02/19/2020 12:00:00 AM EST Former Smoker completed Former Smoker eCW1 ([facility]ly [facility]) Smoking 02/09/2020 12:00:00 AM EST Former Smoker completed Former Smoker eCW1 ([facility]ly [facility]) Smoking 02/09/2020 12:00:00 AM EST Former Smoker completed Former Smoker eCW1 ([facility]ly [facility]) Smoking 01/19/2020 12:00:00 AM EDT Former Smoker completed Former Smoker eCW1 ([facility]ly [facility]) Smoking 01/19/2020 12:00:00 AM EDT Former Smoker completed Former Smoker eCW1 ([facility]ly [facility]) Smoking 01/19/2020 12:00:00 AM EDT Former Smoker completed Former Smoker eCW1 ([facility]ly [facility]) Smoking 09/18/2019 12:00:00 AM EDT Former Smoker completed Former Smoker eCW1 ([facility]ly [facility]) Smoking 09/18/2019 12:00:00 AM EDT Former Smoker completed Former Smoker eCW1 ([facility]ly [facility]) Smoking 09/18/2019 12:00:00 AM EDT Former Smoker completed Former Smoker eCW1 (Formerly [facility]) Smoking 09/18/2019 12:00:00 AM EDT Former Smoker completed Former Smoker eCW1 (Formerly [facility]) Smoking 08/14/2019 12:00:00 AM EDT Former Smoker completed Former Smoker eCW1 ([facility]ly [facility]) Smoking 08/14/2019 12:00:00 AM EDT Former Smoker completed Former Smoker eCW1 ([facility]ly [facility]) Smoking 08/14/2019 12:00:00 AM EDT Former Smoker completed Former Smoker eCW1 (Formerly [facility]) Smoking 08/14/2019 12:00:00 AM EDT Former Smoker completed Former Smoker eCW1 (Formerly [facility]) Vital Signs ID Date Data Source UNK Name Value Range Interpretation Code Description Data Source(s) Body surface area Derived from formula 1.79 m2 1.79 m2 [facility] ([facility] Body weight 64.865 kg 64.865 kg [facility] ([facility]) Paradis body weight 160 [lb_av] 160 [lb_av] MEDEN T ([facility]) Body mass index (BMI) [Ratio] 21.1 kg/m2 21.1 k g/m2 [facility] ([facility]) Body weight 143.00 [lb_av] 143.00 [lb_av] [facility] Body height 69 [in_i] 69 [in_i] [facility] ([facility]) 5'9" Diastolic blood pressure 63 mm[Hg] 63 mm[Hg] [facility] ([facility]) Systolic blood pressure 110 mm[Hg] 110 mm[Hg] M [facility] ([facility]) Paradis body weight 160 [lb_av] 160 [lb_av] MEDEN T ([facility]) Body height 69 [in_i] 69 [in_i] [facility] ([facility]) 5'9" Heart rate 85 /min 85 /min [facility] ([facility]) Diastolic blood pressure 61 mm[Hg] 61 mm[Hg] [facility] ([facility]) Systolic blood pressure 126 mm[Hg] 126 mm[Hg] M [facility] ([facility]) Diastolic blood pressure 78 mm[Hg] 78 mm[Hg] W1 (Formerly [facility]) Systolic blood pressure 188 mm[Hg] 188 mm[Hg] e CW1 (Formerly [facility]) Body temperature 97.7 [degF] 97.7 [degF] eCW1 ( Formerly [facility]) Respiratory rate 20 /min 20 /min eCW1 (Formerly [facility]) Heart rate 90 /min 90 /min eCW1 ([facility]) Body mass index (BMI) [Ratio] 24.22 kg/m2 24.22 kg/m2 eCW1 (Formerly [facility]) Body height 69 [in_i] 69 [in_i] eCW1 ([facility]) Body weight 164 [lb_av] 164 [lb_av] eCW1 ([facility]) Diastolic blood pressure 58 mm[Hg] 58 mm[Hg] eCW1 (Formerly [facility]) Systolic blood pressure 107 mm[Hg] 107 mm[Hg] e CW1 (Formerly [facility]) Body temperature 98.5 [degF] 98.5 [degF] eCW1 ( Formerly [facility]) Respiratory rate 20 /min 20 /min eCW1 (Formerly [facility]) Heart rate 82 /min 82 /min eCW1 ([facility]) Body mass index (BMI) [Ratio] 24.22 kg/m2 24.22 kg/m2 eCW1 (Formerly [facility]) Body height 69 [in_i] 69 [in_i] eCW1 ([facility]) Body weight 164 [lb_av] 164 [lb_av] eCW1 ([facility]) Diastolic blood pressure mm[Hg] eCW1 (Formerly [facility]) Systolic blood pressure 188 mm[Hg] 188 mm[Hg] e CW1 (Formerly [facility]) Body temperature 98.2 [degF] 98.2 [degF] eCW1 ( Formerly [facility]) Respiratory rate 22 /min 22 /min eCW1 (Formerly [facility]) Heart rate 88 /min 88 /min eCW1 ([facility]) Body mass index (BMI) [Ratio] 24.81 kg/m2 24.81 kg/m2 eCW1 (Formerly [facility]) Body height 69 [in_i] 69 [in_i] eCW1 ([facility]) Body weight kg eCW1 ([facility]) Body weight 168 [lb_av] 168 [lb_av] eCW1 ([facility]) Body mass index (BMI) [Ratio] 24.8 kg/m2 24.8 k g/m2 [facility] ([facility] Heart rate 77 /min 77 /min [facility] ([facility] Diastolic blood pressure 69 mm[Hg] 69 mm[Hg] [facility] ([facility] Systolic blood pressure 107 mm[Hg] 107 mm[Hg] M [facility] ([facility] Body weight 168.00 [lb_av] 168.00 [lb_av] MEDEN T ([facility] Body height 69 [in_i] 69 [in_i] [facility] ([facility] 5'9" Body surface area Derived from formula 1.92 m2 1.92 m2 [facility] Body weight 76.318 kg 76.318 kg [facility] ([facility]) Paradis body weight 160 [lb_av] 160 [lb_av] MEDEN T ([facility]) Body mass index (BMI) [Ratio] 24.8 kg/m2 24.8 k g/m2 [facility] ([facility]) Body weight 168.25 [lb_av] 168.25 [lb_av] MEDEN T ([facility]) Body height 69 [in_i] 69 [in_i] [facility]) 5'9" Diastolic blood pressure 70 mm[Hg] 70 mm[Hg] [facility] ([facility]) Systolic blood pressure 128 mm[Hg] 128 mm[Hg] [facility]) Diastolic blood pressure 69 mm[Hg] 69 mm[Hg] eCW1 (Formerly [facility]) Systolic blood pressure 107 mm[Hg] 107 mm[Hg] e CW1 (Formerly [facility]) Body temperature 94.6 [degF] 94.6 [degF] eCW1 ( Formerly [facility]) Respiratory rate 18 /min 18 /min eCW1 (Formerly [facility]) Heart rate 77 /min 77 /min eCW1 ([facility]) Body mass index (BMI) [Ratio] 24.81 kg/m2 24.81 kg/m2 eCW1 (Formerly [facility]) Body height 69 [in_i] 69 [in_i] eCW1 ([facility]) Body weight kg eCW1 ([facility]) Body weight 168 [lb_av] 168 [lb_av] eCW1 ([facility]) Body mass index (BMI) [Ratio] 24.81 kg/m2 24.81 kg/m2 eCW1 (Formerly [facility]) Body height 69 [in_i] 69 [in_i] eCW1 ([facility]) Body weight kg eCW1 ([facility]) Body weight 168 [lb_av] 168 [lb_av] eCW1 ([facility]) Body weight 78.926 kg 78.926 kg [facility] ([facility], ) Paradis body weight 160 [lb_av] 160 [lb_av] MEDEN T ([facility], ) Body mass index (BMI) [Ratio] 25.7 kg/m2 25.7 k g/m2 [facility] ([facility], ) Body weight 174.00 [lb_av] 174.00 [lb_av] MED[facility] T ([facility], ) Body height 69 [in_i] 69 [in_i] [facility], ) 5'9" Diastolic blood pressure 70 mm[Hg] 70 mm[Hg] [facility] ([facility], ) Systolic blood pressure 124 mm[Hg] 124 mm[Hg] M [facility] ([facility], ) Body mass index (BMI) [Ratio] 25.5 kg/m2 25.5 k g/m2 [facility] ([facility]) Body weight 173.00 [lb_av] 173.00 [lb_av] MEDEN T ([facility]) Body height 69 [in_i] 69 [in_i] [facility] ([facility]) 5'9" Diastolic blood pressure 82 mm[Hg] 82 mm[Hg] [facility] ([facility]) Systolic blood pressure 140 mm[Hg] 140 mm[Hg] [facility] ([facility]) Body weight 78.473 kg 78.473 kg [facility] ([facility]) Body weight 77.566 kg 77.566 kg [facility] ([facility]) Body mass index (BMI) [Ratio] 25.2 kg/m2 25.2 k g/m2 [facility] ([facility]) Body weight 171.00 [lb_av] 171.00 [lb_av] MEDEN T ([facility]) Body height 69 [in_i] 69 [in_i] [facility] ([facility]) 5'9" Diastolic blood pressure 70 mm[Hg] 70 mm[Hg] [facility] ([facility]) Systolic blood pressure 120 mm[Hg] 120 mm[Hg] [facility] ([facility]) Body weight 77.112 kg 77.112 kg [facility] ([facility]) Body mass index (BMI) [Ratio] 25.1 kg/m2 25.1 k g/m2 [facility] ([facility]) Body weight 170.00 [lb_av] 170.00 [lb_av] [facility] Body height 69 [in_i] 69 [in_i] [facility] ([facility]) 5'9" Diastolic blood pressure 80 mm[Hg] 80 mm[Hg] [facility] ([facility]) Systolic blood pressure 153 mm[Hg] 153 mm[Hg] [facility] ([facility]) Body weight 77.225 kg 77.225 kg [facility] ([facility]) Body mass index (BMI) [Ratio] 25.1 kg/m2 25.1 k g/m2 [facility] ([facility]) Body weight 170.25 [lb_av] 170.25 [lb_av] MEDEN T ([facility]) Body height 69 [in_i] 69 [in_i] [facility]) 5'9" Diastolic blood pressure 60 mm[Hg] 60 mm[Hg] [facility] ([facility]) Systolic blood pressure 100 mm[Hg] 100 mm[Hg] M [facility] ([facility]) Body weight 77.225 kg 77.225 kg [facility] ([facility]) Body mass index (BMI) [Ratio] 25.1 kg/m2 25.1 k g/m2 [facility] ([facility]) Body weight 170.25 [lb_av] 170.25 [lb_av] MEDEN T ([facility]) Body height 69 [in_i] 69 [in_i] [facility]) 5'9" Diastolic blood pressure 73 mm[Hg] 73 mm[Hg] [facility] ([facility]) Systolic blood pressure 128 mm[Hg] 128 mm[Hg] [facility] Diastolic blood pressure 78 mm[Hg] 78 mm[Hg] eCW1 (Formerly [facility]) Systolic blood pressure 145 mm[Hg] 145 mm[Hg] e CW1 (Formerly [facility]) Body temperature 97.8 [degF] 97.8 [degF] eCW1 ( Formerly [facility]) Respiratory rate 17 /min 17 /min eCW1 (Formerly [facility]) Heart rate 87 /min 87 /min eCW1 ([facility]) Body mass index (BMI) [Ratio] 24.81 kg/m2 24.81 kg/m2 W1 (Formerly [facility]) Body height 69 [in_i] 69 [in_i] eCW1 ([facility]) Body weight 168 [lb_av] 168 [lb_av] eCW1 ([facility]) Body weight 74.844 kg 74.844 kg [facility] ([facility]) Body mass index (BMI) [Ratio] 24.4 kg/m2 24.4 k g/m2 [facility] ([facility]) Body weight 165.00 [lb_av] 165.00 [lb_av] MEDEN T ([facility]) Body height 69 [in_i] 69 [in_i] [facility] ([facility]) 5'9" Diastolic blood pressure 80 mm[Hg] 80 mm[Hg] [facility] ([facility]) Systolic blood pressure 165 mm[Hg] 165 mm[Hg] M [facility] ([facility]) Diastolic blood pressure 68 mm[Hg] 68 mm[Hg] eCW1 (Formerly [facility]) Systolic blood pressure 111 mm[Hg] 111 mm[Hg] e CW1 (Formerly [facility]) Body temperature 98.0 [degF] 98.0 [degF] eCW1 ( Formerly [facility]) Respiratory rate 18 /min 18 /min eCW1 (Formerly [facility]) Heart rate 89 /min 89 /min eCW1 ([facility]) Body mass index (BMI) [Ratio] 24.81 kg/m2 24.81 kg/m2 W1 (Formerly [facility]) Body height 69 [in_us] 69 [in_us] eCW1 ([facility]) Body weight Measured 168 [lb_av] 168 [lb_av] eC W1 (Formerly [facility]) Diastolic blood pressure 82 mm[Hg] 82 mm[Hg] eCW1 (Formerly [facility]) Systolic blood pressure 132 mm[Hg] 132 mm[Hg] e CW1 (Formerly [facility]) Body mass index (BMI) [Ratio] 25.25 kg/m2 25.25 kg/m2 W1 (Formerly [facility]) Body height 69 [in_us] 69 [in_us] eCW1 ([facility]) Body weight Measured 171 [lb_av] 171 [lb_av] eC W1 (Formerly [facility]) Patient Treatment Plan of Care Planned Activity Planned Date Details Description Data Source (s) Misc. Devices - 03/11/2020 12:00:00 AM EST eCW1 (Formerly [facility]) Misc. Devices - 03/11/2020 12:00:00 AM EST eCW1 (Formerly [facility]) Misc. Devices - 03/11/2020 12:00:00 AM EST eCW1 (Formerly [facility]) Misc. Devices - 03/11/2020 12:00:00 AM EST eCW1 (Formerly [facility]) Misc. Devices - 03/11/2020 12:00:00 AM EST eCW1 (Formerly [facility]) Wheelchair - 02/24/2020 12:00:00 AM EST e CW1 (Formerly [facility]) Wheelchair - 02/24/2020 12:00:00 AM EST e CW1 (Formerly [facility]) Wheelchair - 02/24/2020 12:00:00 AM EST e CW1 (Formerly [facility]) Wheelchair - 02/24/2020 12:00:00 AM EST e CW1 (Formerly [facility]) Wheelchair - 02/24/2020 12:00:00 AM EST e CW1 (Formerly [facility]) Wheelchair - 02/24/2020 12:00:00 AM EST e CW1 (Formerly [facility]) Wheelchair - 02/24/2020 12:00:00 AM EST e CW1 (Formerly [facility]) Wheelchair - 02/24/2020 12:00:00 AM EST e CW1 (Formerly [facility]) Finasteride 5 MG Oral Tablet [Proscar] 09/05/2019 12:00:00 AM EDT eCW1 (Formerly [facility]) Finasteride 5 MG Oral Tablet [Proscar] 09/05/2019 12:00:00 AM EDT eCW1 (Formerly [facility]) Finasteride 5 MG Oral Tablet [Proscar] 09/05/2019 12:00:00 AM EDT eCW1 (Formerly [facility]) Finasteride 5 MG Oral Tablet [Proscar] 09/05/2019 12:00:00 AM EDT eCW1 (Formerly [facility]) Citalopram 40 MG Oral Tablet [Celexa] 04/17/2019 12:00:00 AM EST eCW1 (Formerly [facility]) Celexa 40 MG 04/17/2019 12:00:00 AM EST e CW1 (Formerly [facility])
[2020-04-12] MEDS ORDERED: NS 1,000 ML IV SCH (20:11)
[2020-04-12] MEDS ORDERED: ACETAMINOPHEN TAB 650MG DOSE (2X325MG) PO ONE (20:15)
[2020-04-12 20:45] LABS: BASO % 0.4 % (0.0-1.0); EOS # 0.1 10^3/uL (0.0-0.5); EOS % 1.1 % (0.0-3.0); HEMATOCRIT 30.9 % (42.0-52.0); HEMOGLOBIN 9.7 g/dl (13.5-17.5); LYMPH # 2.4 10^3/uL (1.5-5.0); LYMPH % 23.1 % (24.0-44.0); MEAN CORPUSCULAR HEMOGLOBIN 29.8 pg (27.0-33.0); MEAN CORPUSCULAR HGB CONC 31.4 g/dl (32.0-36.5); MEAN CORPUSCULAR VOLUME 94.8 fl (80.0-96.0); MONO # 1.1 10^3/uL (0.0-0.8); MONO % 11.1 % (0.0-5.0); NEUTROPHILS # 6.6 10^3/uL (1.5-8.5); NEUTROPHILS % 63.8 % (36.0-66.0); PLATELET COUNT, AUTOMATED 250 10^3/uL (150-450); RED BLOOD COUNT 3.26 10^6/uL (4.30-6.10); WHITE BLOOD COUNT 10.3 10^3/uL (4.0-10.0)
--- OUTSIDE RECORDS SUMMARY | 2020-04-12 21:05 | CCD ---
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 If you continue you may have access to information: Regarding HIV / AIDS; Provided by facilities licensed or operated by the [facility] Office of Mental Health; or Provided by the [facility] Office for People With Developmental Disabilities. If such information is present, then the following [facility] mandated warning applies: This information has [...] law may result in a fine or correction sentence or both. A general authorization for the release of medical or other information is NOT sufficient authorization for further disc losure. Family History Family Member Name Family Member Gender Family Member Status Date o f Status Description Data Source(s) Unknown Unknown Problem MEDENT ([facility]) father Encounters Encounter Providers Location Date Indications Data Source(s ) Unknown [address] [facility] [address] [place] [address] 03/31/2020 12:00:00 AM EST eCW1 ([facility]) Unknown [address] [facility] [address] [place] [address] 03/31/2020 12:00:00 AM EST eCW1 ([facility]) Unknown [address] [facility] [address] [place] [address] 03/29/2020 12:00:00 AM EST eCW1 ([facility]) Unknown [address] [facility] [address] 03/24/2020 12:00:00 AM EST eCW1 ([facility]) Unknown [address] [facility] [address] 03/10/2020 12:00:00 AM EST eCW1 ([facility]) Outpatient Attender: Alex Kuhn MD CPSCAORT-CPSCAEND 03/02 02:32:00 PM EST - 03/02/2020 02:33:00 PM EST E10.65 [facility] E10.65 Patient discharged. Unknown [address] [place] [phone] 03/01/2020 12:00:00 AM EST eCW1 ([facility]) Outpatient Attender: Kathy Mcnair/Анна/Indra/ Talon 02/23/2020 12:30:00 PM EST MEDENT ([facility] ([id number]) For Template [place] [address] [place] [phone] 02/23/2020 12:00:00 AM EST eCW1 ([facility]) Unknown [address] [facility] [id number] 02/20/2020 12:00:00 AM EST eCW1 ([facility]) Office Visit, Est Pt., Level 2 FC [address] [place] [address] 02/19/2020 12:00:00 AM EST eCW1 ([facility]) Unknown [address] [facility] [address] 02/19/2020 12:00:00 AM EST eCW1 ([facility]) Office Visit Attender: MOOSE CHAPA [facility] Office 01/31 12:00:00 PM EST MEDENT ([facility] Unknown [address] [facility] [address] 02/18/2020 12:00:00 AM EST eCW1 ([facility]) Unknown [address] [facility] [address] 02/10/2020 12:00:00 AM EST eCW1 ([facility]) Outpatient [address] [facility] [address] 02/09/2020 12:00:00 AM EST eCW1 ([facility]) Unknown [address] [facility] [address] 02/04/2020 12:00:00 AM EST eCW1 ([facility]) Office Visit Attender: MOOSE CHAPA [facility] Office 05/2019 01:45:00 PM EST MEDENT ([facility] Unknown [address] [facility] [address] 01/26/2020 12:00:00 AM EDT eCW1 ([facility]) Outpatient Attender: MOOSE CHAPA [facility] Office 01/01 02:30:00 PM EDT MEDENT ([facility] Outpatient Attender: Florencia Mcnair/Анна/Indra/Zeeshan mcdowell 01/20/2020 11:30:00 AM EDT MEDENT ([facility]) Outpatient [address] [facility] [address] 01/19/2020 12:00:00 AM EDT eCW1 ([facility]) ([id number]) For Template [place] [address] [place] [address] 01/09/2020 12:00:00 AM EDT eCW1 ([facility]) Unknown [address] [facility] [address] 01/01/2020 12:00:00 AM EDT eCW1 ([facility] [place]) Unknown [address] [place] [phone] 12/30/2019 12:00:00 AM EDT eCW1 ([facility]) Outpatient Attender: Florencia Dumont RPA Xu/[place]arthage/Indra/R eindl 12/17/2019 09:00:00 AM EDT MEDENT ([facility]) Outpatient Attender: Alex Kuhn MD CPSCAORT-CPSCAEND 11/30 02:51:00 PM EDT - 12/01/2019 02:52:00 PM EDT E10.65 [facility] E10.65 Patient discharged. Outpatient Attender: DILSHAD Mcnair/[place]/Ang el/Reindl 11/05/2019 11:30:00 AM EDT MEDENT ([facility]) Outpatient Attender: RAISA SARABIA MD Xu/[place]age/Indra/ Reindl 11/04/2019 11:20:00 AM EDT MEDENT ([facility]) Outpatient Attender: Florencia Dumont RPA Xu/[place]/Indra/R eindl 10/16/2019 10:00:00 AM EDT MEDENT ([facility]) [place] [address] [facility] [place] [address] 10/16/2019 12:00:00 AM EDT eCW1 ([facility]) Outpatient Attender: RAISA Mcnair/[place]/Indra/ Reindl 10/07/2019 11:20:00 AM EDT MEDENT ([facility]) Outpatient Attender: Florencia Dumont RPA Xu/[place]/Indra/R eindl 09/25/2019 01:30:00 PM EDT MEDENT ([facility]) Outpatient Attender: Florencia Dumont RPA Xu/[place]arthage/Indra/R eindl 09/24/2019 10:00:00 AM EDT MEDENT ([facility]) Outpatient [address] [facility] [place] [address] 09/18/2019 12:00:00 AM EDT eCW1 ([facility]) [place] [address] [facility] [place] [address] 09/12/2019 12:00:00 AM EDT eCW1 ([facility]) Outpatient Attender: RAISA Mcnair/Анна/Indra/ Talon 09/09/2019 11:35:00 AM EDT MEDENT ([facility]) [place] [address] [facility] [place] [address] 09/05/2019 12:00:00 AM EDT eCW1 ([facility]) [place] [address] [facility] [place] [address] 09/03/2019 12:00:00 AM EDT eCW1 ([facility]) Outpatient 08/28/2019 09:03:00 AM EDT [facility] Unknown [address] [facility] [place] [address] 08/26/2019 12:00:00 AM EDT eCW1 ([facility]) Outpatient Attender: Alex Kuhn MD CPSCAORT-CPSCAEND 08/19 02:44:00 PM EDT - 08/20/2019 02:45:00 PM EDT [facility] Patient discharged. [facility] [address] [facility] [place] [address] 08/20/2019 12:00:00 AM EDT eCW1 ([facility]) [facility] [address] [facility] [place] [address] 08/19/2019 12:00:00 AM EDT eCW1 ([facility]) [facility] [address] [facility] [place] [address] 08/19/2019 12:00:00 AM EDT eCW1 ([facility]) Outpatient 08/13/2019 02:22:00 PM EDT [facility] [address] [facility] [place] [address] 08/12/2019 12:00:00 AM EDT eCW1 ([facility]) [facility] [address] [facility] [place] [address] 08/07/2019 12:00:00 AM EDT eCW1 ([facility]) [facility] [address] [facility] [address] 08/05/2019 12:00:00 AM EDT eCW1 ([facility]) [facility] [address] [facility] [address] 08/04/2019 12:00:00 AM EDT eCW1 ([facility]) [facility] [address] [place] [address] 06/25/2019 12:00:00 AM EDT eCW1 ([facility] [address] [place] [phone] 06/19/2019 12:00:00 AM EDT eCW1 ([facility]) [facility] Dermatology [address] [place] [phone] 06/18/2019 12:00:00 AM EDT eCW1 ([facility]) [facility] Dermatology [address] [place] [phone] 06/06/2019 12:00:00 AM EST eCW1 ([facility]) [facility] [address] [place] [address] [place] [address] 04/30/2019 12:00:00 AM EST eCW1 ([facility]) Outpatient Attender: Alex Khun MD CPSCAORT-CPSCAEND 04/24 03:04:00 PM EST - 04/24/2019 03:05:00 PM EST E10.65 [facility] E10.65 Patient discharged. [facility] [address] [facility] [address] 04/22/2019 12:00:00 AM EST eCW1 ([facility]) [facility] [address] [facility] [place] [address] 04/15/2019 12:00:00 AM EST eCW1 ([facility]) [facility] [address] [facility] [place] [address] 04/07/2019 12:00:00 AM EST eCW1 ([facility]) [facility] LeRmaria alejandra [address] [facility] [place] [address] 02/25/2019 12:00:00 AM EST eCW1 ([facility]) [facility] LeRmaria alejandra [address] [facility] [place] [address] 02/20/2019 12:00:00 AM EST eCW1 ([facility]) [facility] Lermaria alejandra [address] [facility] [place] [address] 02/13/2019 12:00:00 AM EST eCW1 ([facility]) Outpatient Attender: Alex Kuhn MD CPSCAORT-CPSCAEND 01/14 02:06:00 PM EDT - 01/14/2019 02:07:00 PM EDT E10.65 [facility] E10.65 Patient discharged. Medications Medication Brand Name Start Date Product Form Dose Route Admi nistrative Instructions Pharmacy Instructions Status Indications Reaction Description Data Source(s) Misc. Devices - UNK 03/11/2020 12:00:00 AM EST active Misc. Devices - eCW1 ([facility]) Misc. Devices - UNK 03/11/2020 12:00:00 AM EST active Misc. Devices - eCW1 ([facility]) Misc. Devices - UNK 03/11/2020 12:00:00 AM EST active Misc. Devices - eCW1 ([facility]) Misc. Devices - UNK 03/11/2020 12:00:00 AM EST active Misc. Devices - eCW1 ([facility]) Misc. Devices - UNK 03/11/2020 12:00:00 AM EST active Misc. Devices - eCW1 ([facility]) Misc. Devices - UNK 03/11/2020 12:00:00 AM EST active Misc. Devices - eCW1 ([facility]) Wheelchair - Wheelchair - 02/24/2020 12:00:00 AM EST active Wheelchair - eCW1 ([facility]) Wheelchair - Wheelchair - 02/24/2020 12:00:00 AM EST active Wheelchair - eCW1 ([facility]) Wheelchair - Wheelchair - 02/24/2020 12:00:00 AM EST active Wheelchair - eCW1 ([facility]) Wheelchair - Wheelchair - 02/24/2020 12:00:00 AM EST active Wheelchair - eCW1 ([facility]) Wheelchair - Wheelchair - 02/24/2020 12:00:00 AM EST active Wheelchair - eCW1 ([facility]) Wheelchair - Wheelchair - 02/24/2020 12:00:00 AM EST active Wheelchair - eCW1 ([facility]) Wheelchair - Wheelchair - 02/24/2020 12:00:00 AM EST active Wheelchair - eCW1 ([facility]) Wheelchair - Wheelchair - 02/24/2020 12:00:00 AM EST active Wheelchair - eCW1 ([facility]) Wheelchair - Wheelchair - 02/24/2020 12:00:00 AM EST active Wheelchair - eCW1 ([facility]) Cephalexin 500 MG Oral Capsule Cephalexin 02/02/2020 12:00:00 AM EST ORAL active [facility] ([facility] tramadol hydrochloride 50 MG Oral Tablet Tramadol HCL 02/02/2020 12:00:00 AM EST active [facility] Sucralfate 100 MG/ML Oral Suspension Sucralfate 10/23/2019 12:00:00 A M EDT ORAL active MEDENT ([facility] ) pantoprazole 40 MG Delayed Release Oral Tablet Pantoprazole Sodium 10/07/2019 12:00:00 AM EDT active M EDENT ([facility], ) Finasteride 5 MG Oral Tablet [Proscar] Proscar 5 MG Proscar 5 MG 09/05/2019 12:00:00 AM EDT 1.0 {tablet} active Pr cassidy 5 MG eCW1 ([facility]) Finasteride 5 MG Oral Tablet [Proscar] Proscar 5 MG Proscar 5 MG 09/05/2019 12:00:00 AM EDT 1.0 {tablet} suspended Proscar 5 MG eCW1 ([facility]) Finasteride 5 MG Oral Tablet [Proscar] Proscar 5 MG Proscar 5 MG 09/05/2019 12:00:00 AM EDT 1.0 {tablet} suspended Proscar 5 MG eCW1 ([facility]) Finasteride 5 MG Oral Tablet [Proscar] Proscar 5 MG Proscar 5 MG 09/05/2019 12:00:00 AM EDT 1.0 {tablet} active Pr cassidy 5 MG eCW1 ([facility]) Finasteride 5 MG Oral Tablet [Proscar] Proscar 5 MG Proscar 5 MG 09/05/2019 12:00:00 AM EDT 1.0 {tablet} suspended Proscar 5 MG eCW1 ([facility]) Finasteride 5 MG Oral Tablet [Proscar] Proscar 5 MG Proscar 5 MG 09/05/2019 12:00:00 AM EDT 1.0 {tablet} suspended Proscar 5 MG eCW1 ([facility]) Finasteride 5 MG Oral Tablet [Proscar] Proscar 5 MG Proscar 5 MG 09/05/2019 12:00:00 AM EDT 1.0 {tablet} active Pr cassidy 5 MG eCW1 ([facility]) Finasteride 5 MG Oral Tablet [Proscar] Proscar 5 MG Proscar 5 MG 09/05/2019 12:00:00 AM EDT 1.0 {tablet} active Pr cassidy 5 MG eCW1 ([facility]) Finasteride 5 MG Oral Tablet [Proscar] Proscar 5 MG Proscar 5 MG 09/05/2019 12:00:00 AM EDT 1.0 {tablet} active Pr cassidy 5 MG eCW1 ([facility]) Finasteride 5 MG Oral Tablet [Proscar] Proscar 5 MG Proscar 5 MG 09/05/2019 12:00:00 AM EDT 1.0 {tablet} suspended Proscar 5 MG eCW1 ([facility]) Finasteride 5 MG Oral Tablet [Proscar] Proscar 5 MG Proscar 5 MG 09/05/2019 12:00:00 AM EDT 1.0 {tablet} suspended Proscar 5 MG eCW1 ([facility]) Finasteride 5 MG Oral Tablet [Proscar] Proscar 5 MG Proscar 5 MG 09/05/2019 12:00:00 AM EDT 1.0 {tablet} active Pr cassidy 5 MG eCW1 ([facility]) Finasteride 5 MG Oral Tablet [Proscar] Proscar 5 MG Proscar 5 MG 09/05/2019 12:00:00 AM EDT 1.0 {tablet} active Pr cassidy 5 MG eCW1 ([facility]) Finasteride 5 MG Oral Tablet [Proscar] Proscar 5 MG Proscar 5 MG 09/05/2019 12:00:00 AM EDT 1.0 {tablet} active Pr cassidy 5 MG eCW1 ([facility]) Finasteride 5 MG Oral Tablet [Proscar] Proscar 5 MG Proscar 5 MG 09/05/2019 12:00:00 AM EDT 1.0 {tablet} active Pr cassidy 5 MG eCW1 ([facility]) Finasteride 5 MG Oral Tablet [Proscar] Proscar 5 MG Proscar 5 MG 09/05/2019 12:00:00 AM EDT 1.0 {tablet} active Pr cassidy 5 MG eCW1 ([facility]) Finasteride 5 MG Oral Tablet [Proscar] Proscar 5 MG Proscar 5 MG 09/05/2019 12:00:00 AM EDT 1.0 {tablet} suspended Proscar 5 MG eCW1 ([facility]) Finasteride 5 MG Oral Tablet [Proscar] Proscar 5 MG Proscar 5 MG 09/05/2019 12:00:00 AM EDT 1.0 {tablet} suspended Proscar 5 MG eCW1 ([facility]) Finasteride 5 MG Oral Tablet [Proscar] Proscar 5 MG Proscar 5 MG 09/05/2019 12:00:00 AM EDT 1.0 {tablet} active Pr cassidy 5 MG eCW1 ([facility]) Finasteride 5 MG Oral Tablet [Proscar] Proscar 5 MG Proscar 5 MG 09/05/2019 12:00:00 AM EDT 1.0 {tablet} active Pr cassidy 5 MG eCW1 ([facility]) Finasteride 5 MG Oral Tablet [Proscar] Proscar 5 MG Proscar 5 MG 09/05/2019 12:00:00 AM EDT 1.0 {tablet} active Pr cassidy 5 MG eCW1 ([facility]) Finasteride 5 MG Oral Tablet [Proscar] Proscar 5 MG Proscar 5 MG 09/05/2019 12:00:00 AM EDT 1.0 {tablet} active Pr cassidy 5 MG eCW1 ([facility]) Finasteride 5 MG Oral Tablet [Proscar] Proscar 5 MG Proscar 5 MG 09/05/2019 12:00:00 AM EDT 1.0 {tablet} suspended Proscar 5 MG eCW1 ([facility]) Finasteride 5 MG Oral Tablet [Proscar] Proscar 5 MG Proscar 5 MG 09/05/2019 12:00:00 AM EDT 1.0 {tablet} active Pr cassidy 5 MG eCW1 ([facility]) Finasteride 5 MG Oral Tablet [Proscar] Proscar 5 MG Proscar 5 MG 09/05/2019 12:00:00 AM EDT 1.0 {tablet} active Pr cassidy 5 MG eCW1 ([facility]) Insulin, Aspart, Human 100 UNT/ML Inject able Solution [NovoLog] NovoLog 100 UNIT/ML NovoLog 100 UNIT/ML 08/06/2019 12:00:00 AM EDT active NovoLog 100 UNIT/ML eCW1 ([facility]) latanoprost 0.05 MG/ML Ophthalmic Solution Latanoprost 0.005 % Latanoprost 0.005 % 08/06/2019 12:00:00 AM EDT 1.0 {drop_into_affected_eye_in_ the_evening} active Latanoprost 0.005 % eCW1 ([facility]) Prednisone 5 MG Oral Tablet PredniSONE 5 MG PredniSONE 5 MG 08/06/2019 12:00:00 AM EDT 1.0 {tablet} active PredniSONE 5 MG eCW1 ([facility]) latanoprost 0.05 MG/ML Ophthalmic Solution Latanoprost 0.005 % Latanoprost 0.005 % 08/06/2019 12:00:00 AM EDT active 1 drop into affected eye in the evening eCW1 ([facility]) Insulin, Aspart, Human 100 UNT/ML Inject able Solution [NovoLog] NovoLog 100 UNIT/ML NovoLog 100 UNIT/ML 08/06/2019 12:00:00 AM EDT active NovoLog 100 UNIT/ML eCW1 ([facility]) Insulin, Aspart, Human 100 UNT/ML Inject able Solution [NovoLog] NovoLog 100 UNIT/ML NovoLog 100 UNIT/ML 08/06/2019 12:00:00 AM EDT active NovoLog 100 UNIT/ML eCW1 ([facility]) Sucralfate 1000 MG Oral Tablet Sucralfate 1 GM Sucralfate 1 GM 08/06/2019 12:00:00 AM EDT active 1 tablet on an empty stomach eCW1 ([facility]) Acetaminophen 500 MG Oral Tablet Acetaminophen 500 MG 2019 12:00:00 AM EDT 1.0 {tablet_as_needed} active A cetaminophen 500 MG eCW1 ([facility]) latanoprost 0.05 MG/ML Ophthalmic Solution Latanoprost 0.005 % Latanoprost 0.005 % 08/06/2019 12:00:00 AM EDT 1.0 {drop_into_affected_eye_in_ the_evening} active Latanoprost 0.005 % eCW1 ([facility]) Sucralfate 1000 MG Oral Tablet Sucralfate 1 GM Sucralfate 1 GM 08/06/2019 12:00:00 AM EDT 1.0 {tablet_on_an_empty_stomach} active Sucralfate 1 GM eCW1 ([facility]) Acetaminophen 500 MG Oral Tablet Acetaminophen 500 MG 2019 12:00:00 AM EDT 1.0 {tablet_as_needed} active A cetaminophen 500 MG eCW1 ([facility]) Acetaminophen 500 MG Oral Tablet Acetaminophen 500 MG 2019 12:00:00 AM EDT 1.0 {tablet_as_needed} active A cetaminophen 500 MG eCW1 ([facility]) Sucralfate 1000 MG Oral Tablet Sucralfate 1 GM Sucralfate 1 GM 08/06/2019 12:00:00 AM EDT 1.0 {tablet_on_an_empty_stomach} active Sucralfate 1 GM eCW1 ([facility]) Prednisone 5 MG Oral Tablet PredniSONE 5 MG PredniSONE 5 MG 08/06/2019 12:00:00 AM EDT 1.0 {tablet} active PredniSONE 5 MG eCW1 ([facility]) Acetaminophen 500 MG Oral Tablet Acetaminophen 500 MG 2019 12:00:00 AM EDT 1.0 {tablet_as_needed} active A cetaminophen 500 MG eCW1 ([facility]) pantoprazole 40 MG Delayed Release Oral Tablet [Proton ix] Protonix 40 MG Protonix 40 MG 08/06/2019 12:00:00 AM EDT 1.0 {tablet} active Protonix 40 MG eCW1 ([facility]) pantoprazole 40 MG Delayed Release Oral Tablet [Proton ix] Protonix 40 MG Protonix 40 MG 08/06/2019 12:00:00 AM EDT 1.0 {tablet} suspended Protonix 40 MG eCW1 ([facility]) Insulin, Aspart, Human 100 UNT/ML Inject able Solution [NovoLog] NovoLog 100 UNIT/ML NovoLog 100 UNIT/ML 08/06/2019 12:00:00 AM EDT suspended NovoLog 100 UNIT/ML eCW1 ([facility]) latanoprost 0.05 MG/ML Ophthalmic Solution Latanoprost 0.005 % Latanoprost 0.005 % 08/06/2019 12:00:00 AM EDT 1.0 {drop_into_affected_eye_in_ the_evening} active Latanoprost 0.005 % eCW1 ([facility]) pantoprazole 40 MG Delayed Release Oral Tablet [Proton ix] Protonix 40 MG Protonix 40 MG 08/06/2019 12:00:00 AM EDT 1.0 {tablet} active Protonix 40 MG eCW1 ([facility]) pantoprazole 40 MG Delayed Release Oral Tablet [Proton ix] Protonix 40 MG Protonix 40 MG 08/06/2019 12:00:00 AM EDT 1.0 {tablet} active Protonix 40 MG eCW1 ([facility]) Sucralfate 1000 MG Oral Tablet Sucralfate 1 GM Sucralfate 1 GM 08/06/2019 12:00:00 AM EDT 1.0 {tablet_on_an_empty_stomach} active Sucralfate 1 GM eCW1 ([facility]) pantoprazole 40 MG Delayed Release Oral Tablet [Proton ix] Protonix 40 MG Protonix 40 MG 08/06/2019 12:00:00 AM EDT 1.0 {tablet} active Protonix 40 MG eCW1 ([facility]) latanoprost 0.05 MG/ML Ophthalmic Solution Latanoprost 0.005 % Latanoprost 0.005 % 08/06/2019 12:00:00 AM EDT 1.0 {drop_into_affected_eye_in_ the_evening} active Latanoprost 0.005 % eCW1 ([facility]) Sucralfate 1000 MG Oral Tablet Sucralfate 1 GM Sucralfate 1 GM 08/06/2019 12:00:00 AM EDT 1.0 {tablet_on_an_empty_stomach} active Sucralfate 1 GM eCW1 ([facility]) Prednisone 5 MG Oral Tablet PredniSONE 5 MG PredniSONE 5 MG 08/06/2019 12:00:00 AM EDT active 1 tablet eCW1 ([facility]) pantoprazole 40 MG Delayed Release Oral Tablet [Proton ix] Protonix 40 MG Protonix 40 MG 08/06/2019 12:00:00 AM EDT 1.0 {tablet} active Protonix 40 MG eCW1 ([facility]) Acetaminophen 500 MG Oral Tablet Acetaminophen 500 MG 2019 12:00:00 AM EDT active 1 tablet as neede d eCW1 ([facility]) Sucralfate 1000 MG Oral Tablet Sucralfate 1 GM Sucralfate 1 GM 08/06/2019 12:00:00 AM EDT 1.0 {tablet_on_an_empty_stomach} active Sucralfate 1 GM eCW1 ([facility]) Acetaminophen 500 MG Oral Tablet Acetaminophen 500 MG 2019 12:00:00 AM EDT 1.0 {tablet_as_needed} active A cetaminophen 500 MG eCW1 ([facility]) Acetaminophen 500 MG Oral Tablet Acetaminophen 500 MG 2019 12:00:00 AM EDT 1.0 {tablet_as_needed} active A cetaminophen 500 MG eCW1 ([facility]) latanoprost 0.05 MG/ML Ophthalmic Solution Latanoprost 0.005 % Latanoprost 0.005 % 08/06/2019 12:00:00 AM EDT 1.0 {drop_into_affected_eye_in_ the_evening} active Latanoprost 0.005 % eCW1 ([facility]) Sucralfate 1000 MG Oral Tablet Sucralfate 1 GM Sucralfate 1 GM 08/06/2019 12:00:00 AM EDT 1.0 {tablet_on_an_empty_stomach} active Sucralfate 1 GM eCW1 ([facility]) pantoprazole 40 MG Delayed Release Oral Tablet [Proton ix] Protonix 40 MG Protonix 40 MG 08/06/2019 12:00:00 AM EDT 1.0 {tablet} suspended Protonix 40 MG eCW1 ([facility]) Prednisone 5 MG Oral Tablet PredniSONE 5 MG PredniSONE 5 MG 08/06/2019 12:00:00 AM EDT 1.0 {tablet} active PredniSONE 5 MG eCW1 ([facility]) latanoprost 0.05 MG/ML Ophthalmic Solution Latanoprost 0.005 % Latanoprost 0.005 % 08/06/2019 12:00:00 AM EDT 1.0 {drop_into_affected_eye_in_ the_evening} active Latanoprost 0.005 % eCW1 ([facility]) latanoprost 0.05 MG/ML Ophthalmic Solution Latanoprost 0.005 % Latanoprost 0.005 % 08/06/2019 12:00:00 AM EDT 1.0 {drop_into_affected_eye_in_ the_evening} active Latanoprost 0.005 % eCW1 ([facility]) Acetaminophen 500 MG Oral Tablet Acetaminophen 500 MG 2019 12:00:00 AM EDT 1.0 {tablet_as_needed} active A cetaminophen 500 MG eCW1 ([facility]) Acetaminophen 500 MG Oral Tablet Acetaminophen 500 MG 2019 12:00:00 AM EDT 1.0 {tablet_as_needed} active A cetaminophen 500 MG eCW1 ([facility]) Prednisone 5 MG Oral Tablet PredniSONE 5 MG PredniSONE 5 MG 08/06/2019 12:00:00 AM EDT 1.0 {tablet} active PredniSONE 5 MG eCW1 ([facility]) Sucralfate 1000 MG Oral Tablet Sucralfate 1 GM Sucralfate 1 GM 08/06/2019 12:00:00 AM EDT active 1 tablet on an empty stomach eCW1 ([facility]) latanoprost 0.05 MG/ML Ophthalmic Solution Latanoprost 0.005 % Latanoprost 0.005 % 08/06/2019 12:00:00 AM EDT 1.0 {drop_into_affected_eye_in_ the_evening} active Latanoprost 0.005 % eCW1 ([facility]) Prednisone 5 MG Oral Tablet PredniSONE 5 MG PredniSONE 5 MG 08/06/2019 12:00:00 AM EDT 1.0 {tablet} active PredniSONE 5 MG eCW1 [facility] [facility] Prednisone 5 MG Oral Tablet PredniSONE 5 MG PredniSONE 5 MG 08/06/2019 12:00:00 AM EDT 1.0 {tablet} active PredniSONE 5 MG eCW1 ([facility]) Acetaminophen 500 MG Oral Tablet Acetaminophen 500 MG 2019 12:00:00 AM EDT 1.0 {tablet_as_needed} active A cetaminophen 500 MG eCW1 ([facility]) pantoprazole 40 MG Delayed Release Oral Tablet [Proton ix] Protonix 40 MG Protonix 40 MG 08/06/2019 12:00:00 AM EDT 1.0 {tablet} suspended Protonix 40 MG eCW1 ([facility]) pantoprazole 40 MG Delayed Release Oral Tablet [Proton ix] Protonix 40 MG Protonix 40 MG 08/06/2019 12:00:00 AM EDT 1.0 {tablet} active Protonix 40 MG eCW1 ([facility]) Sucralfate 1000 MG Oral Tablet Sucralfate 1 GM Sucralfate 1 GM 08/06/2019 12:00:00 AM EDT 1.0 {tablet_on_an_empty_stomach} active Sucralfate 1 GM eCW1 ([facility]) pantoprazole 40 MG Delayed Release Oral Tablet [Proton ix] Protonix 40 MG Protonix 40 MG 08/06/2019 12:00:00 AM EDT 1.0 {tablet} active Protonix 40 MG eCW1 ([facility]) latanoprost 0.05 MG/ML Ophthalmic Solution Latanoprost 0.005 % Latanoprost 0.005 % 08/06/2019 12:00:00 AM EDT 1.0 {drop_into_affected_eye_in_ the_evening} active Latanoprost 0.005 % eCW1 ([facility]) Insulin, Aspart, Human 100 UNT/ML Inject able Solution [NovoLog] NovoLog 100 UNIT/ML NovoLog 100 UNIT/ML 08/06/2019 12:00:00 AM EDT suspended NovoLog 100 UNIT/ML eCW1 ([facility]) Insulin, Aspart, Human 100 UNT/ML Inject able Solution [NovoLog] NovoLog 100 UNIT/ML NovoLog 100 UNIT/ML 08/06/2019 12:00:00 AM EDT active NovoLog 100 UNIT/ML eCW1 ([facility]) Prednisone 5 MG Oral Tablet PredniSONE 5 MG PredniSONE 5 MG 08/06/2019 12:00:00 AM EDT 1.0 {tablet} active PredniSONE 5 MG eCW1 ([facility]) Insulin, Aspart, Human 100 UNT/ML Inject able Solution [NovoLog] NovoLog 100 UNIT/ML NovoLog 100 UNIT/ML 08/06/2019 12:00:00 AM EDT active NovoLog 100 UNIT/ML eCW1 ([facility]) Prednisone 5 MG Oral Tablet PredniSONE 5 MG PredniSONE 5 MG 08/06/2019 12:00:00 AM EDT active 1 tablet eCW1 ([facility]) Acetaminophen 500 MG Oral Tablet Acetaminophen 500 MG 2019 12:00:00 AM EDT 1.0 {tablet_as_needed} active A cetaminophen 500 MG eCW1 ([facility]) Acetaminophen 500 MG Oral Tablet Acetaminophen 500 MG 2019 12:00:00 AM EDT 1.0 {tablet_as_needed} active A cetaminophen 500 MG eCW1 ([facility]) latanoprost 0.05 MG/ML Ophthalmic Solution Latanoprost 0.005 % Latanoprost 0.005 % 08/06/2019 12:00:00 AM EDT 1.0 {drop_into_affected_eye_in_ the_evening} active Latanoprost 0.005 % eCW1 ([facility]) Prednisone 5 MG Oral Tablet PredniSONE 5 MG PredniSONE 5 MG 08/06/2019 12:00:00 AM EDT 1.0 {tablet} active PredniSONE 5 MG eCW1 ([facility]) Insulin, Aspart, Human 100 UNT/ML Inject able Solution [NovoLog] NovoLog 100 UNIT/ML NovoLog 100 UNIT/ML 08/06/2019 12:00:00 AM EDT active NovoLog 100 UNIT/ML eCW1 ([facility]) Prednisone 5 MG Oral Tablet PredniSONE 5 MG PredniSONE 5 MG 08/06/2019 12:00:00 AM EDT 1.0 {tablet} active PredniSONE 5 MG eCW1 ([facility]) Prednisone 5 MG Oral Tablet PredniSONE 5 MG PredniSONE 5 MG 08/06/2019 12:00:00 AM EDT 1.0 {tablet} active PredniSONE 5 MG eCW1 ([facility]) Sucralfate 1000 MG Oral Tablet Sucralfate 1 GM Sucralfate 1 GM 08/06/2019 12:00:00 AM EDT 1.0 {tablet_on_an_empty_stomach} active Sucralfate 1 GM eCW1 ([facility]) Sucralfate 1000 MG Oral Tablet Sucralfate 1 GM Sucralfate 1 GM 08/06/2019 12:00:00 AM EDT 1.0 {tablet_on_an_empty_stomach} active Sucralfate 1 GM eCW1 ([facility]) Acetaminophen 500 MG Oral Tablet Acetaminophen 500 MG 2019 12:00:00 AM EDT 1.0 {tablet_as_needed} active A cetaminophen 500 MG eCW1 ([facility]) Acetaminophen 500 MG Oral Tablet Acetaminophen 500 MG 2019 12:00:00 AM EDT 1.0 {tablet_as_needed} active A cetaminophen 500 MG eCW1 ([facility]) Prednisone 5 MG Oral Tablet PredniSONE 5 MG PredniSONE 5 MG 08/06/2019 12:00:00 AM EDT 1.0 {tablet} active PredniSONE 5 MG eCW1 ([facility]) latanoprost 0.05 MG/ML Ophthalmic Solution Latanoprost 0.005 % Latanoprost 0.005 % 08/06/2019 12:00:00 AM EDT 1.0 {drop_into_affected_eye_in_ the_evening} active Latanoprost 0.005 % eCW1 ([facility]) pantoprazole 40 MG Delayed Release Oral Tablet [Proton ix] Protonix 40 MG Protonix 40 MG 08/06/2019 12:00:00 AM EDT 1.0 {tablet} active Protonix 40 MG eCW1 ([facility]) Insulin, Aspart, Human 100 UNT/ML Inject able Solution [NovoLog] NovoLog 100 UNIT/ML NovoLog 100 UNIT/ML 08/06/2019 12:00:00 AM EDT active NovoLog 100 UNIT/ML eCW1 ([facility]) Acetaminophen 500 MG Oral Tablet Acetaminophen 500 MG 2019 12:00:00 AM EDT 1.0 {tablet_as_needed} active A cetaminophen 500 MG eCW1 ([facility]) pantoprazole 40 MG Delayed Release Oral Tablet [Proton ix] Protonix 40 MG Protonix 40 MG 08/06/2019 12:00:00 AM EDT 1.0 {tablet} active Protonix 40 MG eCW1 ([facility]) Prednisone 5 MG Oral Tablet PredniSONE 5 MG PredniSONE 5 MG 08/06/2019 12:00:00 AM EDT 1.0 {tablet} active PredniSONE 5 MG eCW1 ([facility]) Insulin, Aspart, Human 100 UNT/ML Inject able Solution [NovoLog] NovoLog 100 UNIT/ML NovoLog 100 UNIT/ML 08/06/2019 12:00:00 AM EDT suspended NovoLog 100 UNIT/ML eCW1 ([facility]) Acetaminophen 500 MG Oral Tablet Acetaminophen 500 MG 2019 12:00:00 AM EDT 1.0 {tablet_as_needed} active A cetaminophen 500 MG eCW1 ([facility]) Acetaminophen 500 MG Oral Tablet Acetaminophen 500 MG 2019 12:00:00 AM EDT 1.0 {tablet_as_needed} active A cetaminophen 500 MG eCW1 ([facility]) Acetaminophen 500 MG Oral Tablet Acetaminophen 500 MG 2019 12:00:00 AM EDT active 1 tablet as neede d eCW1 ([facility]) pantoprazole 40 MG Delayed Release Oral Tablet [Proton ix] Protonix 40 MG Protonix 40 MG 08/06/2019 12:00:00 AM EDT 1.0 {tablet} suspended Protonix 40 MG eCW1 ([facility]) Insulin, Aspart, Human 100 UNT/ML Inject able Solution [NovoLog] NovoLog 100 UNIT/ML NovoLog 100 UNIT/ML 08/06/2019 12:00:00 AM EDT active NovoLog 100 UNIT/ML eCW1 ([facility]) Prednisone 5 MG Oral Tablet PredniSONE 5 MG PredniSONE 5 MG 08/06/2019 12:00:00 AM EDT 1.0 {tablet} active PredniSONE 5 MG eCW1 ([facility]) latanoprost 0.05 MG/ML Ophthalmic Solution Latanoprost 0.005 % Latanoprost 0.005 % 08/06/2019 12:00:00 AM EDT active 1 drop into affected eye in the evening eCW1 ([facility]) Sucralfate 1000 MG Oral Tablet Sucralfate 1 GM Sucralfate 1 GM 08/06/2019 12:00:00 AM EDT 1.0 {tablet_on_an_empty_stomach} active Sucralfate 1 GM eCW1 ([facility]) Insulin, Aspart, Human 100 UNT/ML Inject able Solution [NovoLog] NovoLog 100 UNIT/ML NovoLog 100 UNIT/ML 08/06/2019 12:00:00 AM EDT active NovoLog 100 UNIT/ML eCW1 ([facility]) Insulin, Aspart, Human 100 UNT/ML Inject able Solution [NovoLog] NovoLog 100 UNIT/ML NovoLog 100 UNIT/ML 08/06/2019 12:00:00 AM EDT suspended NovoLog 100 UNIT/ML eCW1 ([facility]) pantoprazole 40 MG Delayed Release Oral Tablet [Proton ix] Protonix 40 MG Protonix 40 MG 08/06/2019 12:00:00 AM EDT active 1 tablet eCW1 ([facility]) Prednisone 5 MG Oral Tablet PredniSONE 5 MG PredniSONE 5 MG 08/06/2019 12:00:00 AM EDT 1.0 {tablet} active PredniSONE 5 MG eCW1 ([facility]) Prednisone 5 MG Oral Tablet PredniSONE 5 MG PredniSONE 5 MG 08/06/2019 12:00:00 AM EDT 1.0 {tablet} active PredniSONE 5 MG eCW1 ([facility]) Sucralfate 1000 MG Oral Tablet Sucralfate 1 GM Sucralfate 1 GM 08/06/2019 12:00:00 AM EDT 1.0 {tablet_on_an_empty_stomach} active Sucralfate 1 GM eCW1 ([facility]) Insulin, Aspart, Human 100 UNT/ML Inject able Solution [NovoLog] NovoLog 100 UNIT/ML NovoLog 100 UNIT/ML 08/06/2019 12:00:00 AM EDT active as directed eCW1 ([facility]) Insulin, Aspart, Human 100 UNT/ML Inject able Solution [NovoLog] NovoLog 100 UNIT/ML NovoLog 100 UNIT/ML 08/06/2019 12:00:00 AM EDT suspended NovoLog 100 UNIT/ML eCW1 ([facility]) pantoprazole 40 MG Delayed Release Oral Tablet [Proton ix] Protonix 40 MG Protonix 40 MG 08/06/2019 12:00:00 AM EDT 1.0 {tablet} active Protonix 40 MG eCW1 ([facility]) Insulin, Aspart, Human 100 UNT/ML Inject able Solution [NovoLog] NovoLog 100 UNIT/ML NovoLog 100 UNIT/ML 08/06/2019 12:00:00 AM EDT suspended NovoLog 100 UNIT/ML eCW1 ([facility]) pantoprazole 40 MG Delayed Release Oral Tablet [Proton ix] Protonix 40 MG Protonix 40 MG 08/06/2019 12:00:00 AM EDT 1.0 {tablet} suspended Protonix 40 MG eCW1 ([facility]) Acetaminophen 500 MG Oral Tablet Acetaminophen 500 MG 2019 12:00:00 AM EDT 1.0 {tablet_as_needed} active A cetaminophen 500 MG eCW1 ([facility]) Insulin, Aspart, Human 100 UNT/ML Inject able Solution [NovoLog] NovoLog 100 UNIT/ML NovoLog 100 UNIT/ML 08/06/2019 12:00:00 AM EDT suspended NovoLog 100 UNIT/ML eCW1 ([facility]) Prednisone 5 MG Oral Tablet PredniSONE 5 MG PredniSONE 5 MG 08/06/2019 12:00:00 AM EDT 1.0 {tablet} active PredniSONE 5 MG eCW1 ([facility]) latanoprost 0.05 MG/ML Ophthalmic Solution Latanoprost 0.005 % Latanoprost 0.005 % 08/06/2019 12:00:00 AM EDT 1.0 {drop_into_affected_eye_in_ the_evening} active Latanoprost 0.005 % eCW1 ([facility]) latanoprost 0.05 MG/ML Ophthalmic Solution Latanoprost 0.005 % Latanoprost 0.005 % 08/06/2019 12:00:00 AM EDT 1.0 {drop_into_affected_eye_in_ the_evening} active Latanoprost 0.005 % eCW1 ([facility]) Prednisone 5 MG Oral Tablet PredniSONE 5 MG PredniSONE 5 MG 08/06/2019 12:00:00 AM EDT 1.0 {tablet} active PredniSONE 5 MG eCW1 ([facility]) latanoprost 0.05 MG/ML Ophthalmic Solution Latanoprost 0.005 % Latanoprost 0.005 % 08/06/2019 12:00:00 AM EDT 1.0 {drop_into_affected_eye_in_ the_evening} active Latanoprost 0.005 % eCW1 ([facility]) latanoprost 0.05 MG/ML Ophthalmic Solution Latanoprost 0.005 % Latanoprost 0.005 % 08/06/2019 12:00:00 AM EDT 1.0 {drop_into_affected_eye_in_ the_evening} active Latanoprost 0.005 % eCW1 ([facility]) Acetaminophen 500 MG Oral Tablet Acetaminophen 500 MG 2019 12:00:00 AM EDT 1.0 {tablet_as_needed} active A cetaminophen 500 MG eCW1 ([facility]) Sucralfate 1000 MG Oral Tablet Sucralfate 1 GM Sucralfate 1 GM 08/06/2019 12:00:00 AM EDT 1.0 {tablet_on_an_empty_stomach} active Sucralfate 1 GM eCW1 ([facility]) Acetaminophen 500 MG Oral Tablet Acetaminophen 500 MG 2019 12:00:00 AM EDT 1.0 {tablet_as_needed} active A cetaminophen 500 MG eCW1 ([facility]) latanoprost 0.05 MG/ML Ophthalmic Solution Latanoprost 0.005 % Latanoprost 0.005 % 08/06/2019 12:00:00 AM EDT 1.0 {drop_into_affected_eye_in_ the_evening} active Latanoprost 0.005 % eCW1 ([facility]) Sucralfate 1000 MG Oral Tablet Sucralfate 1 GM Sucralfate 1 GM 08/06/2019 12:00:00 AM EDT 1.0 {tablet_on_an_empty_stomach} active Sucralfate 1 GM eCW1 ([facility]) Insulin, Aspart, Human 100 UNT/ML Inject able Solution [NovoLog] NovoLog 100 UNIT/ML NovoLog 100 UNIT/ML 08/06/2019 12:00:00 AM EDT suspended NovoLog 100 UNIT/ML eCW1 ([facility]) Prednisone 5 MG Oral Tablet PredniSONE 5 MG PredniSONE 5 MG 08/06/2019 12:00:00 AM EDT 1.0 {tablet} active PredniSONE 5 MG eCW1 ([facility]) pantoprazole 40 MG Delayed Release Oral Tablet [Proton ix] Protonix 40 MG Protonix 40 MG 08/06/2019 12:00:00 AM EDT 1.0 {tablet} suspended Protonix 40 MG eCW1 ([facility]) pantoprazole 40 MG Delayed Release Oral Tablet [Proton ix] Protonix 40 MG Protonix 40 MG 08/06/2019 12:00:00 AM EDT 1.0 {tablet} active Protonix 40 MG eCW1 ([facility]) Sucralfate 1000 MG Oral Tablet Sucralfate 1 GM Sucralfate 1 GM 08/06/2019 12:00:00 AM EDT 1.0 {tablet_on_an_empty_stomach} active Sucralfate 1 GM eCW1 ([facility]) Acetaminophen 500 MG Oral Tablet Acetaminophen 500 MG 2019 12:00:00 AM EDT 1.0 {tablet_as_needed} active A cetaminophen 500 MG eCW1 ([facility]) pantoprazole 40 MG Delayed Release Oral Tablet [Proton ix] Protonix 40 MG Protonix 40 MG 08/06/2019 12:00:00 AM EDT 1.0 {tablet} active Protonix 40 MG eCW1 ([facility]) Sucralfate 1000 MG Oral Tablet Sucralfate 1 GM Sucralfate 1 GM 08/06/2019 12:00:00 AM EDT 1.0 {tablet_on_an_empty_stomach} active Sucralfate 1 GM eCW1 ([facility]) Sucralfate 1000 MG Oral Tablet Sucralfate 1 GM Sucralfate 1 GM 08/06/2019 12:00:00 AM EDT 1.0 {tablet_on_an_empty_stomach} active Sucralfate 1 GM eCW1 ([facility]) pantoprazole 40 MG Delayed Release Oral Tablet [Proton ix] Protonix 40 MG Protonix 40 MG 08/06/2019 12:00:00 AM EDT 1.0 {tablet} active Protonix 40 MG eCW1 ([facility]) Sucralfate 1000 MG Oral Tablet Sucralfate 1 GM Sucralfate 1 GM 08/06/2019 12:00:00 AM EDT 1.0 {tablet_on_an_empty_stomach} active Sucralfate 1 GM eCW1 ([facility]) pantoprazole 40 MG Delayed Release Oral Tablet [Proton ix] Protonix 40 MG Protonix 40 MG 08/06/2019 12:00:00 AM EDT 1.0 {tablet} suspended Protonix 40 MG eCW1 ([facility]) latanoprost 0.05 MG/ML Ophthalmic Solution Latanoprost 0.005 % Latanoprost 0.005 % 08/06/2019 12:00:00 AM EDT 1.0 {drop_into_affected_eye_in_ the_evening} active Latanoprost 0.005 % eCW1 ([facility]) Insulin, Aspart, Human 100 UNT/ML Inject able Solution [NovoLog] NovoLog 100 UNIT/ML NovoLog 100 UNIT/ML 08/06/2019 12:00:00 AM EDT suspended NovoLog 100 UNIT/ML eCW1 ([facility]) Sucralfate 1000 MG Oral Tablet Sucralfate 1 GM Sucralfate 1 GM 08/06/2019 12:00:00 AM EDT 1.0 {tablet_on_an_empty_stomach} active Sucralfate 1 GM eCW1 ([facility]) Insulin, Aspart, Human 100 UNT/ML Inject able Solution [NovoLog] NovoLog 100 UNIT/ML NovoLog 100 UNIT/ML 08/06/2019 12:00:00 AM EDT active NovoLog 100 UNIT/ML eCW1 ([facility]) Sucralfate 1000 MG Oral Tablet Sucralfate 1 GM Sucralfate 1 GM 08/06/2019 12:00:00 AM EDT 1.0 {tablet_on_an_empty_stomach} active Sucralfate 1 GM eCW1 ([facility]) pantoprazole 40 MG Delayed Release Oral Tablet [Proton ix] Protonix 40 MG Protonix 40 MG 08/06/2019 12:00:00 AM EDT 1.0 {tablet} suspended Protonix 40 MG eCW1 ([facility]) pantoprazole 40 MG Delayed Release Oral Tablet [Proton ix] Protonix 40 MG Protonix 40 MG 08/06/2019 12:00:00 AM EDT 1.0 {tablet} active Protonix 40 MG eCW1 ([facility]) Prednisone 5 MG Oral Tablet PredniSONE 5 MG PredniSONE 5 MG 08/06/2019 12:00:00 AM EDT 1.0 {tablet} active PredniSONE 5 MG eCW1 ([facility]) Prednisone 5 MG Oral Tablet PredniSONE 5 MG PredniSONE 5 MG 08/06/2019 12:00:00 AM EDT 1.0 {tablet} active PredniSONE 5 MG eCW1 ([facility]) Prednisone 5 MG Oral Tablet PredniSONE 5 MG PredniSONE 5 MG 08/06/2019 12:00:00 AM EDT 1.0 {tablet} active PredniSONE 5 MG eCW1 ([facility]) pantoprazole 40 MG Delayed Release Oral Tablet [Proton ix] Protonix 40 MG Protonix 40 MG 08/06/2019 12:00:00 AM EDT active 1 tablet eCW1 ([facility]) Sucralfate 1000 MG Oral Tablet Sucralfate 1 GM Sucralfate 1 GM 08/06/2019 12:00:00 AM EDT 1.0 {tablet_on_an_empty_stomach} active Sucralfate 1 GM eCW1 ([facility]) Acetaminophen 500 MG Oral Tablet Acetaminophen 500 MG 2019 12:00:00 AM EDT 1.0 {tablet_as_needed} active A cetaminophen 500 MG eCW1 ([facility]) latanoprost 0.05 MG/ML Ophthalmic Solution Latanoprost 0.005 % Latanoprost 0.005 % 08/06/2019 12:00:00 AM EDT 1.0 {drop_into_affected_eye_in_ the_evening} active Latanoprost 0.005 % eCW1 ([facility]) Prednisone 5 MG Oral Tablet PredniSONE 5 MG PredniSONE 5 MG 08/06/2019 12:00:00 AM EDT 1.0 {tablet} active PredniSONE 5 MG eCW1 ([facility]) latanoprost 0.05 MG/ML Ophthalmic Solution Latanoprost 0.005 % Latanoprost 0.005 % 08/06/2019 12:00:00 AM EDT 1.0 {drop_into_affected_eye_in_ the_evening} active Latanoprost 0.005 % eCW1 ([facility]) latanoprost 0.05 MG/ML Ophthalmic Solution Latanoprost 0.005 % Latanoprost 0.005 % 08/06/2019 12:00:00 AM EDT 1.0 {drop_into_affected_eye_in_ the_evening} active Latanoprost 0.005 % eCW1 ([facility]) Insulin, Aspart, Human 100 UNT/ML Inject able Solution [NovoLog] NovoLog 100 UNIT/ML NovoLog 100 UNIT/ML 08/06/2019 12:00:00 AM EDT active NovoLog 100 UNIT/ML eCW1 ([facility]) Sucralfate 1000 MG Oral Tablet Sucralfate 1 GM Sucralfate 1 GM 08/06/2019 12:00:00 AM EDT 1.0 {tablet_on_an_empty_stomach} active Sucralfate 1 GM eCW1 ([facility]) latanoprost 0.05 MG/ML Ophthalmic Solution Latanoprost 0.005 % Latanoprost 0.005 % 08/06/2019 12:00:00 AM EDT 1.0 {drop_into_affected_eye_in_ the_evening} active Latanoprost 0.005 % eCW1 ([facility]) Insulin, Aspart, Human 100 UNT/ML Inject able Solution [NovoLog] NovoLog 100 UNIT/ML NovoLog 100 UNIT/ML 08/06/2019 12:00:00 AM EDT suspended NovoLog 100 UNIT/ML eCW1 ([facility]) Acetaminophen 500 MG Oral Tablet Acetaminophen 500 MG 2019 12:00:00 AM EDT 1.0 {tablet_as_needed} active A cetaminophen 500 MG eCW1 ([facility]) Acetaminophen 500 MG Oral Tablet Acetaminophen 500 MG 2019 12:00:00 AM EDT 1.0 {tablet_as_needed} active A cetaminophen 500 MG eCW1 ([facility]) Prednisone 5 MG Oral Tablet PredniSONE 5 MG PredniSONE 5 MG 08/06/2019 12:00:00 AM EDT 1.0 {tablet} active PredniSONE 5 MG eCW1 ([facility]) Acetaminophen 500 MG Oral Tablet Acetaminophen 500 MG 2019 12:00:00 AM EDT 1.0 {tablet_as_needed} active A cetaminophen 500 MG eCW1 ([facility]) Sucralfate 1000 MG Oral Tablet Sucralfate 1 GM Sucralfate 1 GM 08/06/2019 12:00:00 AM EDT 1.0 {tablet_on_an_empty_stomach} active Sucralfate 1 GM eCW1 ([facility]) Sucralfate 1000 MG Oral Tablet Sucralfate 1 GM Sucralfate 1 GM 08/06/2019 12:00:00 AM EDT 1.0 {tablet_on_an_empty_stomach} active Sucralfate 1 GM eCW1 ([facility]) Insulin, Aspart, Human 100 UNT/ML Inject able Solution [NovoLog] NovoLog 100 UNIT/ML NovoLog 100 UNIT/ML 08/06/2019 12:00:00 AM EDT suspended NovoLog 100 UNIT/ML eCW1 ([facility]) Acetaminophen 500 MG Oral Tablet Acetaminophen 500 MG 2019 12:00:00 AM EDT 1.0 {tablet_as_needed} active A cetaminophen 500 MG eCW1 ([facility]) latanoprost 0.05 MG/ML Ophthalmic Solution Latanoprost 0.005 % Latanoprost 0.005 % 08/06/2019 12:00:00 AM EDT 1.0 {drop_into_affected_eye_in_ the_evening} active Latanoprost 0.005 % eCW1 ([facility]) Insulin, Aspart, Human 100 UNT/ML Inject able Solution [NovoLog] NovoLog 100 UNIT/ML NovoLog 100 UNIT/ML 08/06/2019 12:00:00 AM EDT active NovoLog 100 UNIT/ML eCW1 ([facility]) pantoprazole 40 MG Delayed Release Oral Tablet [Proton ix] Protonix 40 MG Protonix 40 MG 08/06/2019 12:00:00 AM EDT 1.0 {tablet} active Protonix 40 MG eCW1 ([facility]) Insulin, Aspart, Human 100 UNT/ML Inject able Solution [NovoLog] NovoLog 100 UNIT/ML NovoLog 100 UNIT/ML 08/06/2019 12:00:00 AM EDT active as directed eCW1 ([facility]) latanoprost 0.05 MG/ML Ophthalmic Solution Latanoprost 0.005 % Latanoprost 0.005 % 08/06/2019 12:00:00 AM EDT 1.0 {drop_into_affected_eye_in_ the_evening} active Latanoprost 0.005 % eCW1 ([facility]) Insulin, Aspart, Human 100 UNT/ML Inject able Solution [NovoLog] NovoLog 100 UNIT/ML NovoLog 100 UNIT/ML 08/06/2019 12:00:00 AM EDT active NovoLog 100 UNIT/ML eCW1 ([facility]) latanoprost 0.05 MG/ML Ophthalmic Solution Latanoprost 0.005 % Latanoprost 0.005 % 08/06/2019 12:00:00 AM EDT 1.0 {drop_into_affected_eye_in_ the_evening} active Latanoprost 0.005 % eCW1 ([facility]) pantoprazole 40 MG Delayed Release Oral Tablet [Proton ix] Protonix 40 MG Protonix 40 MG 08/06/2019 12:00:00 AM EDT 1.0 {tablet} active Protonix 40 MG eCW1 ([facility]) Prednisone 5 MG Oral Tablet PredniSONE 5 MG PredniSONE 5 MG 08/06/2019 12:00:00 AM EDT 1.0 {tablet} active PredniSONE 5 MG eCW1 ([facility]) Sucralfate 1000 MG Oral Tablet Sucralfate 1 GM Sucralfate 1 GM 08/06/2019 12:00:00 AM EDT 1.0 {tablet_on_an_empty_stomach} active Sucralfate 1 GM eCW1 ([facility]) latanoprost 0.05 MG/ML Ophthalmic Solution Latanoprost 0.005 % Latanoprost 0.005 % 08/06/2019 12:00:00 AM EDT 1.0 {drop_into_affected_eye_in_ the_evening} active Latanoprost 0.005 % eCW1 ([facility]) Insulin, Aspart, Human 100 UNT/ML Inject able Solution [NovoLog] NovoLog 100 UNIT/ML NovoLog 100 UNIT/ML 08/06/2019 12:00:00 AM EDT suspended NovoLog 100 UNIT/ML eCW1 ([facility]) Sucralfate 1000 MG Oral Tablet Sucralfate 1 GM Sucralfate 1 GM 08/06/2019 12:00:00 AM EDT 1.0 {tablet_on_an_empty_stomach} active Sucralfate 1 GM eCW1 ([facility]) pantoprazole 40 MG Delayed Release Oral Tablet [Proton ix] Protonix 40 MG Protonix 40 MG 08/06/2019 12:00:00 AM EDT 1.0 {tablet} suspended Protonix 40 MG eCW1 ([facility]) Prednisone 5 MG Oral Tablet PredniSONE 5 MG PredniSONE 5 MG 08/06/2019 12:00:00 AM EDT 1.0 {tablet} active PredniSONE 5 MG eCW1 ([facility]) Citalopram 40 MG Oral Tablet [Celexa] Celexa 40 MG Celexa 40 MG 04/17/2019 12:00:00 AM EST active 1 tab e CW1 ([facility]) Citalopram 40 MG Oral Tablet [Celexa] Celexa 40 MG Celexa 40 MG 04/17/2019 12:00:00 AM EST active Celexa 4 0 MG eCW1 ([facility]) Citalopram 40 MG Oral Tablet [Celexa] Celexa 40 MG Celexa 40 MG 04/17/2019 12:00:00 AM EST active Celexa 4 0 MG eCW1 ([facility]) Celexa 40 MG UNK 04/17/2019 12:00:00 AM EST activ e 1 tab eCW1 ([facility]) Citalopram 40 MG Oral Tablet [Celexa] Celexa 40 MG Celexa 40 MG 04/17/2019 12:00:00 AM EST active Celexa 4 0 MG eCW1 ([facility]) Citalopram 40 MG Oral Tablet [Celexa] Celexa 40 MG Celexa 40 MG 04/17/2019 12:00:00 AM EST active Celexa 4 0 MG eCW1 ([facility]) Citalopram 40 MG Oral Tablet [Celexa] Celexa 40 MG Celexa 40 MG 04/17/2019 12:00:00 AM EST active 1 tab e CW1 ([facility]) Citalopram 40 MG Oral Tablet [Celexa] Celexa 40 MG Celexa 40 MG 04/17/2019 12:00:00 AM EST active 1 tab e CW1 ([facility]) Citalopram 40 MG Oral Tablet [Celexa] Celexa 40 MG Celexa 40 MG 04/17/2019 12:00:00 AM EST active Celexa 4 0 MG eCW1 ([facility]) Citalopram 40 MG Oral Tablet [Celexa] Celexa 40 MG Celexa 40 MG 04/17/2019 12:00:00 AM EST active Celexa 4 0 MG eCW1 ([facility]) Citalopram 40 MG Oral Tablet [Celexa] Celexa 40 MG Celexa 40 MG 04/17/2019 12:00:00 AM EST active Celexa 4 0 MG eCW1 ([facility]) Citalopram 40 MG Oral Tablet [Celexa] Celexa 40 MG Celexa 40 MG 04/17/2019 12:00:00 AM EST active Celexa 4 0 MG eCW1 ([facility]) Citalopram 40 MG Oral Tablet [Celexa] Celexa 40 MG Celexa 40 MG 04/17/2019 12:00:00 AM EST active Celexa 4 0 MG eCW1 ([facility]) Citalopram 40 MG Oral Tablet [Celexa] Celexa 40 MG Celexa 40 MG 04/17/2019 12:00:00 AM EST active Celexa 4 0 MG eCW1 ([facility]) Citalopram 40 MG Oral Tablet [Celexa] Celexa 40 MG Celexa 40 MG 04/17/2019 12:00:00 AM EST active Celexa 4 0 MG eCW1 ([facility]) Citalopram 40 MG Oral Tablet [Celexa] Celexa 40 MG Celexa 40 MG 04/17/2019 12:00:00 AM EST active Celexa 4 0 MG eCW1 ([facility]) Citalopram 40 MG Oral Tablet [Celexa] Celexa 40 MG Celexa 40 MG 04/17/2019 12:00:00 AM EST active Celexa 4 0 MG eCW1 ([facility]) Citalopram 40 MG Oral Tablet [Celexa] Celexa 40 MG Celexa 40 MG 04/17/2019 12:00:00 AM EST active Celexa 4 0 MG eCW1 ([facility]) Citalopram 40 MG Oral Tablet [Celexa] Celexa 40 MG Celexa 40 MG 04/17/2019 12:00:00 AM EST active Celexa 4 0 MG eCW1 ([facility]) Citalopram 40 MG Oral Tablet [Celexa] Celexa 40 MG Celexa 40 MG 04/17/2019 12:00:00 AM EST active 1 tab e CW1 ([facility]) Citalopram 40 MG Oral Tablet [Celexa] Celexa 40 MG Celexa 40 MG 04/17/2019 12:00:00 AM EST active Celexa 4 0 MG eCW1 ([facility]) Citalopram 40 MG Oral Tablet [Celexa] Celexa 40 MG Celexa 40 MG 04/17/2019 12:00:00 AM EST active Celexa 4 0 MG eCW1 ([facility]) Citalopram 40 MG Oral Tablet [Celexa] Celexa 40 MG Celexa 40 MG 04/17/2019 12:00:00 AM EST active Celexa 4 0 MG eCW1 ([facility]) Citalopram 40 MG Oral Tablet [Celexa] Celexa 40 MG Celexa 40 MG 04/17/2019 12:00:00 AM EST active Celexa 4 0 MG eCW1 ([facility]) Citalopram 40 MG Oral Tablet [Celexa] Celexa 40 MG Celexa 40 MG 04/17/2019 12:00:00 AM EST active Celexa 4 0 MG eCW1 ([facility]) Citalopram 40 MG Oral Tablet [Celexa] Celexa 40 MG Celexa 40 MG 04/17/2019 12:00:00 AM EST active Celexa 4 0 MG eCW1 ([facility]) Citalopram 40 MG Oral Tablet [Celexa] Celexa 40 MG Celexa 40 MG 04/17/2019 12:00:00 AM EST active Celexa 4 0 MG eCW1 ([facility]) Citalopram 40 MG Oral Tablet [Celexa] Celexa 40 MG Celexa 40 MG 04/17/2019 12:00:00 AM EST active Celexa 4 0 MG eCW1 ([facility]) Citalopram 40 MG Oral Tablet [Celexa] Celexa 40 MG Celexa 40 MG 04/17/2019 12:00:00 AM EST active Celexa 4 0 MG eCW1 ([facility]) Citalopram 40 MG Oral Tablet [Celexa] Celexa 40 MG Celexa 40 MG 04/17/2019 12:00:00 AM EST active Celexa 4 0 MG eCW1 ([facility]) Insurance Providers Payer name Policy type / Coverage type Policy ID Covered libertarian ID Covered libertarian's relationship to laboy Policy Laboy Plan Information MEDICARE COMPLETE [id number] SP [id number] EMEDNY [id number] SP [id number] FORMERLY [facility] MEDICARE [id number] S [id number] MEDICAID [id number] S [id number] MEDICARE COMPLETE [id number] SP [id number] MEDICARE [id number] SP [id number] MEDICARE COMPLETE-[facility] O [id number] S [id number] MEDICAID M [id number] S [id number] FORMERLY [facility] MEDICARE [id number] S [id number] [facility] [id number] SP [id number] [facility] MCRHMO [id number] SP [id number] MEDICARE [id number] SP [id number] WELLCARE [id number] SP [id number] EMEDNY [id number] SP [id number] MEDICARE [id number] SP [id number] A MEDICARE COMPLETE [id number] SP [id number] MEDICARE COMPLETE [id number] SP [id number] WELLCARE [id number] SP [id number] WELLCARE [id number] SP [id number] WELLCARE O [id number] S [id number] WELLCARE [id number] S [id number] WELLCARE O [id number] S [id number] MEDICARE [id number] SP [id number] [id number] MEDICAID [id number] SP [id number] MEDICARE C [id number] S [id number] [id number] MEDICAID [id number] SP [id number] WELLCARE [id number] S [id number] [id number] MEDICARE [id number] S [id number] [id number] WELLCARE [id number] S [id number] MEDICARE -RECURRING [id number] 18 [id number] MEDICAID -RECURRING [id number] 1 [id number] ANSI-Medicaid [id number] ANSI-Medicare Part B [id number] ANSI-Medicaid [id number] ANSI-Medicare Part B [id number] ANSI-Medicare Part B [id number] ANSI-Medicaid [id number] ANSI-Medicare Part B [id number] ANSI-Medicaid [id number] ANSI-Medicaid [id number] ANSI-Medicare Part B [id number] ANSI-Medicaid [id number] ANSI-Medicare Part B [id number] ANSI-Medicaid [id number] ANSI-Medicare Part B [id number] ANSI-Medicaid [id number] ANSI-Medicare Part B [id number] ANSI-Medicare Part B [id number] ANSI-Medicaid [id number] ANSI-Medicare Part B [id number] ANSI-Medicaid [id number] ANSI-Medicare Part B [id number] ANSI-Medicaid [id number] ANSI-Medicare Part B [id number] ANSI-Medicaid [id number] ANSI-Medicaid [id number] ANSI-Medicare Part B [id number] ANSI-Medicare Part B [id number] ANSI-Medicaid [id number] MEDICARE -RECURRING [id number] 18 [id number] ANSI-Medicaid [id number] ANSI-Medicare Part B [id number] ANSI-Medicaid [id number] ANSI-Medicare Part B [id number] ANSI-Medicare Part B [id number] ANSI-Medicaid [id number] Medicaid [place]ig[place] Part B [id number] Self [id number] Medicare [place] Medicare Primary [id number] Self [id number] ANSI-Medicare Part B [id number] ANSI-Medicaid [id number] ANSI-Medicaid [id number] ANSI-Medicare Part B [id number] ANSI-Medicaid [id number] ANSI-Medicare Part B [id number] ANSI-Medicare Part B [id number] ANSI-Medicaid [id number] ANSI-Medicare Part B [id number] ANSI-Medicaid [id number] MEDICARE [id number] ANSI-Medicare Part B [id number] ANSI-Medicaid [id number] ANSI-Medicaid [id number] ANSI-Medicare Part B [id number] ANSI-Medicare Part B [id number] ANSI-Medicaid [id number] ANSI-Medicaid [id number] ANSI-Medicare Part B [id number] ANSI-Medicaid [id number] ANSI-Medicare Part B [id number] ANSI-Medicare Part B [id number] ANSI-Medicaid [id number] ANSI-Medicaid [id number] ANSI-Medicare Part B [id number] ANSI-Medicaid [id number] ANSI-Medicare Part B [id number] ANSI-Medicaid [id number] ANSI-Medicare Part B [id number] ANSI-Medicaid [id number] ANSI-Medicare Part B [id number] ANSI-Medicaid [id number] ANSI-Medicare Part B [id number] ANSI-Medicare Part B [id number] ANSI-Medicaid [id number] MEDICARE [id number] SP [id number] A ANSI-Medicare Part B [id number] ANSI-Medicaid [id number] [employer]RIEL RHONDA [id number] SELF [id number] MEDICARE [id number] SELF [id number] A MEDICARE PART A [id number] Patient [id number] [employer] GABRIEL RHONDA UNAVAILABLE SELF UNAVAILABLE PERSONAL PAY UNAVAILABLE SELF UNAVA ILABLE MEDICARE C [id number] S [id number] A [place] MEDICARE PART B C [id number] S [id number] MEDICAID [id number] SP [id number] [place] [id number] Self [id number] Medicare [place] Medicare Primary [id number] Self [id number] [facility] C [id number] S [id number] [place] Med[place] Part [place] [id number] Self [id number] Medicare [place]/N[place] Medicare Primary [id number] Self [id number] [place] Med[place] Part B [id number] Self [id number] Medicare [place] Medicare Primary [id number] Self [id number] MEDICAID [id number] SP [id number] MEDICAID [id number] SP [id number] MEDICAID M [id number] Self [id number] MEDICARE A [id number] Self [id number] MEDICAID -O/P [id number] 18 [id number] MEDICARE -O/P [id number] 18 [id number] OTHER WORKERS COMPENSATION [id number] SP [id number] MEDICAID -CLINIC [id number] MEDICARE -CLINIC [id number] 18 [id number] WORKMANS COMPENSATION -O/ [id number] 18 [id number] MEDICAID -PHYSICIAN [id number] WORKMANS COMPENSATION -O/P [id number] 18 [id number] MEDICARE -PHYSICIAN [id number] 18 [id number] Problems, Conditions, and Diagnoses Code Display Name Description Problem Type Effective Dates Data Source(s) S88.111A [id number] Below-knee amputation of right lower extr emity Problem 04/06/2020 12:00:00 AM EST eCW1 ([facility]) Z89.512 [id number] 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 Problem 03/11/2020 12:00:00 AM EST eCW1 ([facility]) Z89.511 [id number] Acquired absence of right leg below knee Problem 03/11/2020 12:00:00 AM EST eCW1 ([facility]) S88.119A [id number] Amputation below knee Problem 02/24/2020 12: 00:00 AM EST eCW1 ([facility]) M86.9 [id number] Osteomyelitis of right foot, unspecif ied type Problem 02/19/2020 12:00:00 AM EST eCW1 ([facility]) [id number] O/E - Amputated left below knee O/E - Amputated left below knee Problem 01/26/2020 12:00:00 AM EDT [facility] ([facility] 24881751 Pain in limb Pain in limb Problem 01/26/2020 12:00:00 A M EDT [facility] ([facility] 434061693 Gangrenous disorder Gangrenous disorder Problem 1 12:00:00 AM EDT [facility] ([facility] 50903160466461220 Pressure ulcer of right foot stage 4 Pre ssure ulcer of right foot stage 4 Problem 01/26/2020 12:00:00 AM EDT [facility] ([facility] 757006266 Type 2 diabetes mellitus with ulcer Type 2 diabetes mellitus with ulcer Problem 01/26/2020 12:00:00 AM EDT [facility] ([facility] L97.514 [id number] 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 Problem 12/31/2019 12:00:00 AM EDT eCW1 ([facility]) E11.621 574469445 Type 2 diabetes mellitus with foot ulcer Problem 12/31/2019 12:00:00 AM EDT eCW1 ([facility]) E10.69 09944779 Type 1 diabetes mellitus with ot her specified complication Problem 10/17/2019 12:00:00 AM EDT eCW1 ([facility]) L97.519 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 Non-pressure chronic ulcer of other part of right foot with unspecified severity Problem 09/18/2019 12:00:00 AM EDT eCW1 ([facility]) E10.621 Foot ulcer due to type 1 diabetes [facility] Type 1 diabetes mellitus with foot ulcer Problem 09/18/2019 12:00:00 AM EDT eCW1 ([facility]) 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 Diagnosis 03/02/2020 02:32:00 PM [facility] Z96.41 Presence of insulin pump (external) (int ernal) PRESENCE OF INSULIN PUMP (EXTERNAL) (INTERNAL) Diagnosis 03/02/2020 02:32:00 PM [facility] E10.65 Type 1 diabetes mellitus with hyperglyce sera TYPE 1 DIABETES MELLITUS WITH HYPERGLYCEMIA Diagnosis 03/02/2020 02:32:00 PM [facility] E27.40 Unspecified adrenocortical insufficiency UNSPECIFIED ADRENOCORTICAL INSUFFICIENCY Diagnosis 04/24/2019 03:04:00 PM [facility] Surgeries/Procedures Procedure Description Date Indications Data Source(s) Amputation Below Knee 03/03/2020 12:00:00 AM [facility] outpatient clinic visit for assessment and ma nagement of a patient Hospital Outpatient Clinic Visit 03/02/2020 12:00:00 AM [facility] COLLECTION VENOUS BLOOD VENIPUNCTURE ROUTINE VENIPUNCTURE 12:00:00 AM [facility] HEMOGLOBIN GLYCOSYLATED A1C GLYCOSYLATED HEMOGLOBIN TEST 04/2019 12:00:00 AM [facility] FINE NEEDLE ASPIRATION W/O IMAGING GUIDANCE 02/23/2020 12:00:00 AM [facility] eCW1 ([facility]) Amputation Metatarsal W/Toe 01/28/2020 12:00:00 AM EDT [facility] ([facility] FINE NEEDLE ASPIRATION W/O IMAGING GUIDANCE 01/19/2020 12:00:00 AM EDT eCW ([facility]) FINE NEEDLE ASPIRATION W/O IMAGING GUIDANCE 01/09/2020 12:00:00 AM EDT eCW1 ([facility]) Revascularization,Endovascular,Transluminal Angioplasty 12/31/2019 12:00:00 AM EDT [facility] ([facility], ) REVSC OPN/PRQ TIB/FABIENNE W/ANGIOPLASTY UNI 12/31/2019 12 :00:00 AM EDT [facility] ([facility], ) REVSC OPN/PRQ TIB/FABIENNE W/ANGIOPLASTY UNI EA VSL 2019 12:00:00 AM EDT [facility] ([facility], ) Moderate Sedation Services; Same Phys Intl 15 Mins; PT >= 5 Years 12/31/2019 12:00:00 AM EDT [facility] ([facility], ) Angiography Internal Corotid Of The Ipsil Intrac Circulation 10/08/2019 12:00:00 AM EDT [facility] ([facility], ) Each Intracranial Branch Of The Internal Corotid/Vertebral 10/08/2019 12:00:00 AM EDT [facility] ([facility], ) REVSC OPN/PRQ TIB/FABIENNE W/ANGIOPLASTY UNI EA VSL 2019 12:00:00 AM EDT [facility] ([facility]) REVSC OPN/PRQ TIB/FABIENNE W/ANGIOPLASTY UNI EA VSL 2019 12:00:00 AM EDT [facility] ([facility]) Moderate Sedation Services; Same Phys Intl 15 Mins; PT >= 5 Years 10/08/2019 12:00:00 AM EDT [facility] ([facility]) Endoscopy Upper GI Biopsy 09/17/2019 12:00:00 AM EDT [facility] ([facility]) Office Visit, Est Pt., Level 2 FC 08/14/2019 12:00:00 AM EDT eCW1 ([facility]) TRANS CARE MGMT 7 DAY DISCH 08/14/2019 12:00:00 AM EDT eCW1 ([facility]) Transitional Care NO CHARGE Visit 08/07/2019 12:00:00 AM EDT eCW1 ([facility]) DSTRJ LESION ANUS EXTENSIVE 06/06/2019 12:00:00 AM EST eCW1 ([facility]) GLUC BLD GLUC MNTR DEV CLEARED FDA SPEC HOME USE GLUCOSE BLO OD TEST 04/24/2019 12:00:00 AM [facility] BASIC METABOLIC PANEL CALCIUM TOTAL METABOLIC PANEL TOTAL CA 04/24/2019 12:00:00 AM [facility] Results ID Date Data Source [id number] 03/16/2020 05:11:00 AM [facility] Name Value Range Interpretation Code Description Data Mireille rce(s) Supporting Document(s) Hemoglobin A1C % Less than 5.7% Above high normal [facility] HBA1C: Normal: Less than 5.7% Prediabetes: 5.7% to 6.4% Diabetes: 6.5% or higher HA1C % vs Estimated Average Glucose (eAG) % eAG % eAG 6% 126 mg/dL 10% 240 mg/dL 7% 154 mg/dL 11% 269 mg/dL 8% 183 mg/dL 12% 298 mg/dL 9% 212 mg/dL Reference: [place] [employer], 2017 ID Date Data Source [id number] 02/28/2020 11:00:00 AM EST [facility] Name Value Range Interpretation Code Description Data Mireille rce(s) Supporting Document(s) SARS coronavirus 2 RNA [facility] This lab was ordered by [facility] and reported by [facility]. ID Date Data Source [id number] 01/28/2020 04:53:00 PM EDT [facility] ([facility] Name Value Range Interpretation Code Description Data Mireille rce(s) Supporting Document(s) Glucose [Mass/volume] in Capillary blood by Glucometer 154 mg/dL 80-115 Above high normal [facility] ([facility] ID Date Data Source [id number] 01/28/2020 04:09:00 PM EDT [facility] ([facility] [...] An area of gangrenous changes is noted. Termite Control Servicer sections are submitted in two after decalcification. -OA 01/29/20201303 Signed SALINA SAUNDERS MD 01/30/2020956 ID Date Data Source [id number] 01/28/2020 11:26:00 AM EDT [facility] ([facility] Name Value Range Interpretation Code Description Data Mireille rce(s) Supporting Document(s) Glucose [Mass/volume] in Capillary blood by Glucometer 91 mg/dL 80- 115 [facility] ID Date Data Source [id number] 12/31/2019 11:17:00 AM EDT [facility] ([facility]) Name Value Range Interpretation Code Description Data Mireille rce(s) Supporting Document(s) Glucose [Mass/volume] in Capillary blood by Glucometer 142 mg/dL 80-115 Above high normal [facility] ([facility]) ID Date Data Source [id number] 12/31/2019 08:51:00 AM EDT [facility] ([facility]) Name Value Range Interpretation Code Description Data Mireille rce(s) Supporting Document(s) Glucose [Mass/volume] in Capillary blood by Glucometer 131 mg/dL 80-115 Above high normal [facility] ([facility]) ID Date Data Source [id number] 12/17/2019 10:05:00 AM EDT [facility] ([facility]) Name Value Range Interpretation Code Description Data Mireille rce(s) Supporting Document(s) Glucose, Fasting 158 mg/dL 70-100 Above high normal [facility] ([facility]) Blood Urea Nitrogen 15 mg/dL 7-18 Normal (applies to non-nume nelson results) [facility] ([facility]) Creatinine For GFR 1.36 mg/dL 0.70-1.30 Above high normal [facility] ([facility]) Chloride Level 105 meq/L 98-107 Normal (applies to non-numeric r esults) [facility] ([facility]) Glomerular Filtration Rate 56.9 Normal (applies to n on-numeric results) [facility]) <content>Units are mL/min/1.73 m2</content>
<content></content>
<content>Chronic Kidney Disease Staging per NKF:</content>
<content></content>
<content>Stage I & II GFR >=60 Normal to Mildly Decreased</content>
<content>Stage III GFR 30- 59 Moderately Decreased</content>
<content>Stage IV GFR 15-29 Severely Decreased</content>
<content>Stage V GFR <15 Very Little GFR Left</content>
<content>ESRD GFR <15 on [employer]</content>
<content></content> Potassium Serum 4.6 meq/L 3.5-5.1 Normal (applies to non-numeric results) [facility]) Sodium Level 139 meq/L 136-145 Normal (applies to non-numeric res ults) [facility]) Calcium Level 9.3 mg/dL 8.8-10.2 Normal (applies to non-numeric re sults) [facility]) Anion Gap 7 meq/L 8-16 Below low normal [facility] ( [facility]) Carbon Dioxide Level 27 meq/L 21-32 Normal (applies to non-num gage results) [facility]) ID Date Data Source [id number] 12/17/2019 10:05:00 AM EDT [facility]) Name Value Range Interpretation Code Description Data Mireille rce(s) Supporting Document(s) White Blood Count 6.8 10 4.0-10.0 Normal (applies to non-numeri c results) [facility] ([facility]) Red Blood Count 3.47 10 4.30-6.10 Below low normal [facility] ([facility]) Hemoglobin 11.2 g/dL 13.5-17.5 Below low normal [facility] ( [facility]) Hematocrit 32.8 % 42.0-52.0 Below low normal [facility] ( [facility]) Mean Corpuscular Volume 94.5 fl 80.0-96.0 Normal ( applies to non-numeric results) [facility]) Mean Corpuscular Hemoglobin 32.3 pg 27.0-33.0 Norm al (applies to non-numeric results) [facility]) Mean Corpuscular HGB Conc 34.1 g/dL 32.0-36.5 Normal (applies to non-numeric results) [facility] ([facility], ) Red Cell Distribution Width 12.1 % 11.5-14.5 Norm al (applies to non-numeric results) [facility]) Nucleated Red Blood Cell % 0.0 % 0-0 Normal (applies to n on-numeric results) [facility] ([facility]) Platelet Count, Automated 214 10 150-450 Normal (applies to non-numeric results) [facility]) ID Date Data Source [id number] 12/01/2019 06:43:00 PM EDT [facility] Name Value Range Interpretation Code Description Data Mireille rce(s) Supporting Document(s) Triglycerides 101 mg/dL 0-150 Normal (applies to non-numeric re sults) [facility] Cholesterol 163 mg/dL 0-200 Normal (applies to non-numeric resu lts) [facility] LDL Cholesterol,Direct 77 mg/dL <100 Normal (applies to non-n umeric results) [facility] LDL Interpretative Data Optimal <100 (mg/dL) Near optimal 100-129 (mg/dL) Borderline High 130-159 (mg/dL) High 160-189 (mg/dL) Very High >190 (mg/dL) HDL Cholesterol 73 mg/dL 40-60 Above high normal [facility] CHOL/HDL Ratio Normal (applies to non-numeric r esults) [facility] NATIONAL CHOLESTEROL GUIDEL LIZ NATIONAL HEART, LUNG [...] Average 13.5 11.0 ID Date Data Source [id number] 12/01/2019 06:43:00 PM EDT [facility] Name Value Range Interpretation Code Description Data Mireille rce(s) Supporting Document(s) Sodium 138 mmol/L 137-145 Normal (applies to non-numeric resul ts) [facility] Potassium 3.5-5.1 Normal (applies to non-numeric resul ts) [facility] Chloride 105 mmol/L 98-112 Normal (applies to non-numeric resul ts) [facility] Carbon Dioxide CO2 22.0-33.0 Normal (applies to non-numer ic results) [facility] Anion Gap 4.0-11.0 Normal (applies to non-numeric resul ts) [facility] BUN 16 mg/dL 9-20 Normal (applies to non-numeric resul ts) [facility] Creatinine 0.80-1.50 Normal (applies to non-numeric resul ts) [facility] GFR 48 mL/min >60 Below low normal [facility] Result based on MDRD formula. Glucose Level 66 mg/dL 74-99 Below low normal [facility] The reference range is only applicable w hen fasting. Calcium-Uncorrected 8.4-10.2 Normal (applies to non-nume nelson results) [facility] Corrected Calcium 8.4-10.2 Normal (applies to non-numeri c results) [place] [facility] ID Date Data Source [id number] 12/01/2019 06:43:00 PM EDT [facility] Name Value Range Interpretation Code Description Data Mireille rce(s) Supporting Document(s) Thyroid Stimulate Hormone TSH 0.358-3.740 No rmal (applies to non-numeric results) [facility] ID Date Data Source [id number] 12/01/2019 06:40:00 PM EDT [facility] Name Value Range Interpretation Code Description Data Mireille rce(s) Supporting Document(s) Creatinine,Urine Normal (applies to non-numeric results) [facility] Interpret with care as there is no estab lished reference range associated with this assay's methodology that pertains to this particular sex and/or age. Microalbumin,Urine <1.7 Normal (applies to non-numer ic results) [facility] Albumin/Creatinine Ratio,Urine Normal (applies to non-numeric results) [facility] Reference Ranges for Microalbumin,spot: Normal <30 ug/mg creatinine Microalbuminuria 30-300 ug/mg creatinine Clinical Albuminuria >300 ug/mg creatinine ID Date Data Source [id number] 12/01/2019 06:23:00 PM EDT [facility] Name Value Range Interpretation Code Description Data Mireille rce(s) Supporting Document(s) Hemoglobin A1C % Less than 5.7% Above high normal [facility] HBA1C: Normal: Less than 5.7% Prediabetes: 5.7% to 6.4% Diabetes: 6.5% or higher HA1C % vs Estimated Average Glucose (eAG) % eAG % eAG 6% 126 mg/dL 10% 240 mg/dL 7% 154 mg/dL 11% 269 mg/dL 8% 183 mg/dL 12% 298 mg/dL 9% 212 mg/dL Reference: [place], 2017 ID Date Data Source [id number] 10/08/2019 12:37:00 PM EDT [facility] ([facility]) Name Value Range Interpretation Code Description Data Mireille rce(s) Supporting Document(s) Glucose [Mass/volume] in Capillary blood by Glucometer 190 mg/dL 80-115 Above high normal [facility] ([facility]) ID Date Data Source [id number] 10/08/2019 09:46:00 AM T [facility] ([facility]) Name Value Range Interpretation Code Description Data Mireille rce(s) Supporting Document(s) Glucose [Mass/volume] in Capillary blood by Glucometer 208 mg/dL 80-115 Above high normal [facility] ([facility]) ID Date Data Source [id number] 10/08/2019 08:33:00 AM EDT [facility] ([facility]) Name Value Range Interpretation Code Description Data Mireille rce(s) Supporting Document(s) Glucose, Fasting 60 mg/dL 70-100 Below low normal ME DENT ([facility]) Glomerular Filtration Rate 48.9 Below low normal [facility] ([facility]) <content>Units are mL/min/1.73 m2</content>
<content></content>
<content>Chronic Kidney Disease Staging per NKF:</content>
<content></content>
<content>Stage I & II GFR >=60 Normal to Mildly Decreased</content>
<content>Stage III GFR 30- 59 Moderately Decreased</content>
<content>Stage IV GFR 15-29 Severely Decreased</content>
<content>Stage V GFR <15 Very Little GFR Left</content>
<content>ESRD GFR <15 on [employer]INE[employer]</content>
<content></content> Creatinine For GFR 1.55 mg/dL 0.70-1.30 Above high normal [facility] ([facility]) Blood Urea Nitrogen 18 mg/dL 7-18 Normal (applies to non-nume nelson results) [facility] ([facility]) Potassium Serum 4.3 meq/L 3.5-5.1 Normal (applies to non-numeric results) [facility] ([facility]) Chloride Level 107 meq/L 98-107 Normal (applies to non-numeric r esults) [facility] ([facility]) Sodium Level 141 meq/L 136-145 Normal (applies to non-numeric res ults) [facility] ([facility]) Carbon Dioxide Level 26 meq/L 21-32 Normal (applies to non-num gage results) [facility]) Anion Gap 8 meq/L 8-16 Normal (applies to non-numeric resul ts) [facility] ([facility]) Calcium Level 9.3 mg/dL 8.8-10.2 Normal (applies to non-numeric re sults) [facility]) ID Date Data Source [id number] 10/08/2019 08:33:00 AM EDT [facility]) Name Value Range Interpretation Code Description Data Mireille rce(s) Supporting Document(s) White Blood Count 7.1 10 4.0-10.0 Normal (applies to non-numeri c results) [facility] ([facility]) Red Blood Count 3.97 10 4.30-6.10 Below low normal [facility] ([facility]) Hemoglobin 12.6 g/dL 13.5-17.5 Below low normal [facility] ( [facility]) Mean Corpuscular Volume 97.0 fl 80.0-96.0 Above high normal [facility] ([facility]) Hematocrit 38.5 % 42.0-52.0 Below low normal [facility] ( [facility]) Mean Corpuscular HGB Conc 32.7 g/dL 32.0-36.5 Normal (applies to non-numeric results) [facility] ([facility]) Red Cell Distribution Width 12.1 % 11.5-14.5 Norm al (applies to non-numeric results) [facility] ([facility]) Mean Corpuscular Hemoglobin 31.7 pg 27.0-33.0 Norm al (applies to non-numeric results) [facility] ([facility]) Platelet Count, Automated 206 10 150-450 Normal (applies to non-numeric results) [facility] ([facility]) Nucleated Red Blood Cell % 0.0 % 0-0 Normal (applies to n on-numeric results) [facility] ([facility]) ID Date Data Source [id number] 09/17/2019 11:28:00 AM EDT [facility]) Name Value Range Interpretation Code Description Data Mireille rce(s) Supporting Document(s) Surgical pathology study Laboratory test result [facility]) FINAL DIAGNOSIS A - Duodenal bulb, biopsy: [...] MD 09/18/2019 1420 ID Date Data Source [id number] 09/14/2019 10:40:00 AM EDT [facility] Name Value Range Interpretation Code Description Data Mireille rce(s) Supporting Document(s) SARS CORONAVIRUS 2 RNA [facility] This lab was ordered by [facility] and reported by [facility]. ID Date Data Source [id number] 04/24/2019 06:44:00 PM EST [facility] Name Value Range Interpretation Code Description Data Mireille rce(s) Supporting Document(s) Sodium 140 mmol/L 137-145 Normal (applies to non-numeric resul ts) [facility] Potassium 3.5-5.1 Normal (applies to non-numeric resul ts) [facility] Chloride 105 mmol/L 98-112 Normal (applies to non-numeric resul ts) [facility] Carbon Dioxide CO2 22.0-33.0 Normal (applies to non-numer ic results) [facility] Anion Gap 4.0-11.0 Normal (applies to non-numeric resul ts) [facility] BUN 14 mg/dL 9-20 Normal (applies to non-numeric resul ts) [facility] Creatinine 0.80-1.50 Normal (applies to non-numeric resul ts) [facility] GFR 52 mL/min >60 Below low normal [facility] Result based on MDRD formula. Glucose Level 67 mg/dL 74-99 Below low normal [facility] The reference range is only applicable w hen fasting. Calcium-Uncorrected 8.4-10.2 Normal (applies to non-nume nelson results) [facility] Corrected Calcium 8.4-10.2 Normal (applies to non-numeri c results) [facility] ID Date Data Source [id number] 04/24/2019 06:41:00 PM EST [facility] Name Value Range Interpretation Code Description Data Mireille rce(s) Supporting Document(s) Hemoglobin A1C % Less than 5.7% Above high normal [facility] HBA1C: Normal: Less than 5.7% Prediabetes: 5.7% to 6.4% Diabetes: 6.5% or higher HA1C % vs Estimated Average Glucose (eAG) % eAG % eAG 6% 126 mg/dL 10% 240 mg/dL 7% 154 mg/dL 11% 269 mg/dL 8% 183 mg/dL 12% 298 mg/dL 9% 212 mg/dL Reference: [place] [employer], 2017 Procedure Social History Code Duration Value Status Description Data Source(s ) Smoking 04/06/2020 12:00:00 AM EST Former Smoker completed Former Smoker eCW1 ([facility]) Smoking 04/05/2020 12:00:00 AM EST Non Smoker completed Non Smoke r [facility]ENT ([facility]) Smoking 02/25/2020 12:00:00 AM EST Former Smoker completed Former Smoker eCW1 ([facility]) Smoking 02/25/2020 12:00:00 AM EST Former Smoker completed Former Smoker eCW1 ([facility]) Smoking 02/25/2020 12:00:00 AM EST Former Smoker completed Former Smoker eCW1 ([facility]) Smoking 02/25/2020 12:00:00 AM EST Former Smoker completed Former Smoker eCW1 ([facility]) Smoking 02/25/2020 12:00:00 AM EST Former Smoker completed Former Smoker eCW1 ([facility]) Smoking 02/25/2020 12:00:00 AM EST Former Smoker completed Former Smoker eCW1 ([facility]) Smoking 02/25/2020 12:00:00 AM EST Former Smoker completed Former Smoker eCW1 ([facility]) Smoking 02/24/2020 12:00:00 AM EST Former Smoker completed Former Smoker eCW1 ([facility]) Smoking 02/19/2020 12:00:00 AM EST Former Smoker completed Former Smoker eCW1 ([facility]) Smoking 02/19/2020 12:00:00 AM EST Former Smoker completed Former Smoker eCW1 ([facility]) Smoking 02/19/2020 12:00:00 AM EST Former Smoker completed Former Smoker eCW1 ([facility]) Smoking 02/09/2020 12:00:00 AM EST Former Smoker completed Former Smoker eCW1 ([facility]) Smoking 02/09/2020 12:00:00 AM EST Former Smoker completed Former Smoker eCW1 ([facility]) Smoking 01/19/2020 12:00:00 AM EDT Former Smoker completed Former Smoker eCW1 ([facility]) Smoking 01/19/2020 12:00:00 AM EDT Former Smoker completed Former Smoker eCW1 ([facility]) Smoking 01/19/2020 12:00:00 AM EDT Former Smoker completed Former Smoker eCW1 ([facility]) Smoking 09/18/2019 12:00:00 AM EDT Former Smoker completed Former Smoker eCW1 ([facility]) Smoking 09/18/2019 12:00:00 AM EDT Former Smoker completed Former Smoker eCW1 ([facility]) Smoking 09/18/2019 12:00:00 AM EDT Former Smoker completed Former Smoker eCW1 ([facility]) Smoking 09/18/2019 12:00:00 AM EDT Former Smoker completed Former Smoker eCW1 ([facility]) Smoking 08/14/2019 12:00:00 AM EDT Former Smoker completed Former Smoker eCW1 ([facility]) Smoking 08/14/2019 12:00:00 AM EDT Former Smoker completed Former Smoker eCW1 ([facility]) Smoking 08/14/2019 12:00:00 AM EDT Former Smoker completed Former Smoker eCW1 ([facility]) Smoking 08/14/2019 12:00:00 AM EDT Former Smoker completed Former Smoker eCW1 ([facility]) Vital Signs ID Date Data Source UNK Name Value Range Interpretation Code Description Data Source(s) Body surface area Derived from formula 1.79 m2 1.79 m2 [facility] ([facility]) Body weight 64.865 kg 64.865 kg [facility] ([facility]) [place] body weight 160 [lb_av] 160 [lb_av] MEDEN T ([facility]) Body mass index (BMI) [Ratio] 21.1 kg/m2 21.1 k g/m2 [facility] ([facility]) Body weight 143.00 [lb_av] 143.00 [[facility]_av] [facility] Body height 69 [in_i] 69 [in_i] [facility] ([facility]) 5'9" Diastolic blood pressure 63 mm[Hg] 63 mm[Hg] [facility] ([facility]) Systolic blood pressure 110 mm[Hg] 110 mm[Hg] M [facility] ([facility]) [place] body weight 160 [lb_av] 160 [lb_av] MEDEN T ([facility]) Body height 69 [in_i] 69 [in_i] [facility] ([facility]) 5'9" Heart rate 85 /min 85 /min [facility] ([facility]) Diastolic blood pressure 61 mm[Hg] 61 mm[Hg] [facility] ([facility]) Systolic blood pressure 126 mm[Hg] 126 mm[Hg] M [facility] ([facility]) Diastolic blood pressure 78 mm[Hg] 78 mm[Hg] W1 ([facility]) Systolic blood pressure 188 mm[Hg] 188 mm[Hg] e CW1 ([facility]) Body temperature 97.7 [degF] 97.7 [degF] eCW1 ( [facility]) Respiratory rate 20 /min 20 /min eCW1 ([facility]) Heart rate 90 /min 90 /min eCW1 ([facility]) Body mass index (BMI) [Ratio] 24.22 kg/m2 24.22 kg/m2 eCW1 ([facility]) Body height 69 [in_i] 69 [in_i] eCW1 (Count includes the [facility]) Body weight 164 [lb_av] 164 [lb_av] eCW1 ([facility]) Diastolic blood pressure 58 mm[Hg] 58 mm[Hg] eCW1 ([facility]) Systolic blood pressure 107 mm[Hg] 107 mm[Hg] e CW1 ([facility]) Body temperature 98.5 [degF] 98.5 [degF] eCW1 ( [facility]) Respiratory rate 20 /min 20 /min eCW1 ([facility]) Heart rate 82 /min 82 /min eCW1 ([facility]) Body mass index (BMI) [Ratio] 24.22 kg/m2 24.22 kg/m2 eCW1 ([facility]) Body height 69 [in_i] 69 [in_i] eCW1 (Count includes the [facility]) Body weight 164 [lb_av] 164 [lb_av] eCW1 ([facility]) Diastolic blood pressure mm[Hg] eCW1 ([facility]) Systolic blood pressure 188 mm[Hg] 188 mm[Hg] e CW1 ([facility]) Body temperature 98.2 [degF] 98.2 [degF] eCW1 ( [facility]) Respiratory rate 22 /min 22 /min eCW1 ([facility]) Heart rate 88 /min 88 /min eCW1 ([facility]) Body mass index (BMI) [Ratio] 24.81 kg/m2 24.81 kg/m2 eCW1 ([facility]) Body height 69 [in_i] 69 [in_i] eCW1 (Count includes the [facility]) Body weight kg eCW1 (Count includes the [facility]) Body weight 168 [lb_av] 168 [lb_av] eCW1 ([facility]) Body mass index (BMI) [Ratio] 24.8 kg/m2 [...] Derived from formula 1.92 m2 1.92 m2 [facility] ([facility], ) Body weight 76.318 kg 76.318 kg [facility] ([facility]) [place] body weight 160 [lb_av] 160 [lb_av] MEDEN T ([facility]) Body mass index (BMI) [Ratio] 24.8 kg/m2 24.8 k g/m2 [facility] ([facility]) Body weight 168.25 [lb_av] 168.25 [lb_av] MEDEN T ([facility]) Body height 69 [in_i] 69 [in_i] [facility] ([facility]) 5'9" Diastolic blood pressure 70 mm[Hg] 70 mm[Hg] [facility] ([facility]) Systolic blood pressure 128 mm[Hg] 128 mm[Hg] [facility] Diastolic blood pressure 69 mm[Hg] 69 mm[Hg] eCW1 ([facility]) Systolic blood pressure 107 mm[Hg] 107 mm[Hg] e CW1 ([facility]) Body temperature 94.6 [degF] 94.6 [degF] eCW1 ( [facility]) Respiratory rate 18 /min 18 /min eCW1 ([facility]) Heart rate 77 /min 77 /min eCW1 ([facility]) Body mass index (BMI) [Ratio] 24.81 kg/m2 24.81 kg/m2 eCW1 ([facility]) Body height 69 [in_i] 69 [in_i] eCW1 (Count includes the [facility]) Body weight kg eCW1 (Count includes the [facility]) Body weight 168 [lb_av] 168 [lb_av] eCW1 ([facility]) Body mass index (BMI) [Ratio] 24.81 kg/m2 24.81 kg/m2 eCW1 ([facility]) Body height 69 [in_i] 69 [in_i] eCW1 (Count includes the [facility]) Body weight kg eCW1 (Count includes the [facility]) Body weight 168 [lb_av] 168 [lb_av] eCW1 ([facility]) Body weight 78.926 kg 78.926 kg MEDKULDIP ([facility], ) [place] body weight 160 [lb_av] 160 [lb_av] MEDEN T ([facility], ) Body mass index (BMI) [Ratio] 25.7 kg/m2 25.7 k g/m2 [facility] ([facility], ) Body weight 174.00 [lb_av] 174.00 [lb_av] MEDEN T ([facility], ) Body height 69 [in_i] 69 [in_i] [facility], ) 5'9" Diastolic blood pressure 70 mm[Hg] 70 mm[Hg] [facility] ([facility], ) Systolic blood pressure 124 mm[Hg] 124 mm[Hg] M EDKULDIP ([facility], ) Body mass index (BMI) [Ratio] 25.5 kg/m2 25.5 k g/m2 [facility] ([facility]) Body weight 173.00 [lb_av] 173.00 [lb_av] MEDEN T ([facility]) Body height 69 [in_i] 69 [in_i] [facility] ([facility]) 5'9" Diastolic blood pressure 82 mm[Hg] 82 mm[Hg] [facility] ([facility]) Systolic blood pressure 140 mm[Hg] 140 mm[Hg] [facility] ([facility]) Body weight 78.473 kg 78.473 kg [facility] ([facility]) Body weight 77.566 kg 77.566 kg [facility] ([facility]) Body mass index (BMI) [Ratio] 25.2 kg/m2 25.2 k g/m2 [facility] ([facility]) Body weight 171.00 [lb_av] 171.00 [lb_av] MEDEN T ([facility]) Body height 69 [in_i] 69 [in_i] [facility] ([facility]) 5'9" Diastolic blood pressure 70 mm[Hg] 70 mm[Hg] [facility] ([facility]) Systolic blood pressure 120 mm[Hg] 120 mm[Hg] [facility] ([facility]) Body weight 77.112 kg 77.112 kg [facility] ([facility]) Body mass index (BMI) [Ratio] 25.1 kg/m2 25.1 k g/m2 [facility] ([facility]) Body weight 170.00 [lb_av] 170.00 [lb_av] [facility] Body height 69 [in_i] 69 [in_i] [facility] ([facility]) 5'9" Diastolic blood pressure 80 mm[Hg] 80 mm[Hg] [facility] ([facility]) Systolic blood pressure 153 mm[Hg] 153 mm[Hg] [facility] ([facility]) Body weight 77.225 kg 77.225 kg [facility] ([facility]) Body mass index (BMI) [Ratio] 25.1 kg/m2 25.1 k g/m2 [facility] ([facility]) Body weight 170.25 [lb_av] 170.25 [lb_av] MEDEN T ([facility]) Body height 69 [in_i] 69 [in_i] [facility] ([facility]) 5'9" Diastolic blood pressure 60 mm[Hg] 60 mm[Hg] [facility] ([facility]) Systolic blood pressure 100 mm[Hg] 100 mm[Hg] M EDENT ([facility]) Body weight 77.225 kg 77.225 kg [facility] ([facility]) Body mass index (BMI) [Ratio] 25.1 kg/m2 25.1 k g/m2 [facility] ([facility]) Body weight 170.25 [lb_av] 170.25 [lb_av] MEDEN T ([facility]) Body height 69 [in_i] 69 [in_i] [facility] ([facility]) 5'9" Diastolic blood pressure 73 mm[Hg] 73 mm[Hg] [facility] ([facility]) Systolic blood pressure 128 mm[Hg] 128 mm[Hg] [facility] Diastolic blood pressure 78 mm[Hg] 78 mm[Hg] eCW1 ([facility]) Systolic blood pressure 145 mm[Hg] 145 mm[Hg] e CW1 ([facility]) Body temperature 97.8 [degF] 97.8 [degF] eCW1 ( [facility]) Respiratory rate 17 /min 17 /min eCW1 ([facility]) Heart rate 87 /min 87 /min eCW1 ([facility]) Body mass index (BMI) [Ratio] 24.81 kg/m2 24.81 kg/m2 W1 ([facility]) Body height 69 [in_i] 69 [in_i] eCW1 (Count includes the [facility]) Body weight 168 [lb_av] 168 [lb_av] eCW1 ([facility]) Body weight 74.844 kg 74.844 kg [facility] ([facility]) Body mass index (BMI) [Ratio] 24.4 kg/m2 24.4 k g/m2 [facility] ([facility]) Body weight 165.00 [lb_av] 165.00 [lb_av] MEDEN T ([facility]) Body height 69 [in_i] 69 [in_i] [facility] ([facility]) 5'9" Diastolic blood pressure 80 mm[Hg] 80 mm[Hg] [facility] ([facility]) Systolic blood pressure 165 mm[Hg] 165 mm[Hg] M EDENT ([facility]) Diastolic blood pressure 68 mm[Hg] 68 mm[Hg] eCW1 ([facility]) Systolic blood pressure 111 mm[Hg] 111 mm[Hg] e CW1 ([facility]) Body temperature 98.0 [degF] 98.0 [degF] eCW1 ( [facility]) Respiratory rate 18 /min 18 /min eCW1 ([facility]) Heart rate 89 /min 89 /min eCW1 ([facility]) Body mass index (BMI) [Ratio] 24.81 kg/m2 24.81 kg/m2 W1 ([facility]) Body height 69 [in_us] 69 [in_us] eCW1 (Count includes the [facility]) Body weight Measured 168 [lb_av] 168 [lb_av] eC W1 ([facility]) Diastolic blood pressure 82 mm[Hg] 82 mm[Hg] eCW1 ([facility]) Systolic blood pressure 132 mm[Hg] 132 mm[Hg] e CW1 ([facility]) Body mass index (BMI) [Ratio] 25.25 kg/m2 25.25 kg/m2 W1 ([facility]) Body height 69 [in_us] 69 [in_us] eCW1 (Count includes the [facility]) Body weight Measured 171 [lb_av] 171 [lb_av] eC W1 ([facility]) Patient Treatment Plan of Care Planned Activity Planned Date Details Description Data Source (s) Misc. Devices - 03/11/2020 12:00:00 AM EST eCW1 ([facility]) Misc. Devices - 03/11/2020 12:00:00 AM EST eCW1 ([facility]) Misc. Devices - 03/11/2020 12:00:00 AM EST eCW1 ([facility]) Misc. Devices - 03/11/2020 12:00:00 AM EST eCW1 ([facility]) Misc. Devices - 03/11/2020 12:00:00 AM EST eCW1 ([facility]) Wheelchair - 02/24/2020 12:00:00 AM EST e CW1 ([facility]) Wheelchair - 02/24/2020 12:00:00 AM EST e CW1 ([facility]) Wheelchair - 02/24/2020 12:00:00 AM EST e CW1 ([facility]) Wheelchair - 02/24/2020 12:00:00 AM EST e CW1 ([facility]) Wheelchair - 02/24/2020 12:00:00 AM EST e CW1 ([facility]) Wheelchair - 02/24/2020 12:00:00 AM EST e CW1 ([facility]) Wheelchair - 02/24/2020 12:00:00 AM EST e CW1 ([facility]) Wheelchair - 02/24/2020 12:00:00 AM EST e CW1 ([facility]) Finasteride 5 MG Oral Tablet [Proscar] 09/05/2019 12:00:00 AM EDT eCW1 ([facility]) Finasteride 5 MG Oral Tablet [Proscar] 09/05/2019 12:00:00 AM EDT eCW1 ([facility]) Finasteride 5 MG Oral Tablet [Proscar] 09/05/2019 12:00:00 AM EDT eCW1 ([facility]) Finasteride 5 MG Oral Tablet [Proscar] 09/05/2019 12:00:00 AM EDT eCW1 ([facility]) Citalopram 40 MG Oral Tablet [Celexa] 04/17/2019 12:00:00 AM EST eCW1 ([facility]) Celexa 40 MG 04/17/2019 12:00:00 AM EST e CW1 ([facility])
[2020-04-12] MEDS ORDERED: DEXTROSE 50% 50 ML SYRINGE As Ordered ONE (21:33)
[2020-04-12] MEDS ORDERED: DEXTROSE 50% 50 ML SYRINGE IV STA ×2 (21:33→23:47)
[2020-04-12 22:09] LABS: ALBUMIN 3.3 GM/DL (3.2-5.2); ALT/SGPT 25 U/L (12-78); BILIRUBIN,DIRECT < 0.1 MG/DL (0.0-0.2); BILIRUBIN,TOTAL 0.3 MG/DL (0.2-1.0); BLOOD UREA NITROGEN 10 MG/DL (7-18); CALCIUM LEVEL 8.3 MG/DL (8.8-10.2); CARBON DIOXIDE LEVEL 28 MEQ/L (21-32); CHLORIDE LEVEL 107 MEQ/L (98-107); FREE T4 0.81 NG/DL (0.76-1.46); GLOMERULAR FILTRATION RATE 59.9 (>49); GLUCOSE, FASTING 23 MG/DL (70-100); POTASSIUM SERUM 3.6 MEQ/L (3.5-5.1); SODIUM LEVEL 142 MEQ/L (136-145); TOTAL PROTEIN 6.3 GM/DL (6.4-8.2)
[2020-04-12] MEDS ORDERED: D5W/0.45% SODIUM CHLORIDE 1,000 ML IV SCH (22:30)
--- NOTE | 2020-04-12 23:32 | REPVR ---
PROCEDURE INFORMATION: Exam: XR Right Knee Exam date and time: 04/12/2020 11:08 PM Age: 59 years old Clinical indication: Pain; Knee and lower leg; Right; Prior surgery; Surgery date: <1 month; Additional info: Trauma please include bka stump TECHNIQUE: Imaging protocol: XR Right knee. Views: 4 or more views. COMPARISON: CR Knee, Ap, Lat 04/25/2017 11:28 AM FINDINGS: Bones/joints: Diffuse demineralization of the bones. Patient is status post below-knee amputation. Soft tissues: Normal. Vasculature: Vascular calcifications. IMPRESSION: Status post below-knee amputation. No acute abnormality. Electronically signed by: Chris Cristobal On 04/12/2020 23:32:57 PM
--- NOTE | 2020-04-12 23:33 | REPVR ---
PROCEDURE INFORMATION: Exam: XR Chest, 1 View Exam date and time: 04/12/2020 11:08 PM Age: 59 years old Clinical indication: Fever TECHNIQUE: Imaging protocol: XR of the chest Views: 1 view. COMPARISON: [place] PORTABLE CHEST X-RAY 02/09/2020 5:00 PM FINDINGS: Lungs: Unremarkable. No consolidation. Pleural space: Unremarkable. No pleural effusion. No pneumothorax. Heart/Mediastinum: Unremarkable. No cardiomegaly. Bones/joints: Unremarkable. IMPRESSION: No acute findings. Electronically signed by: Chris Cristobal On 04/12/2020 23:33:43 PM
[2020-04-13] MEDS ORDERED: D10W/0.45% SODIUM CHLORIDE 1,000 ML IV SCH ×2 (00:30→02:30)
[2020-04-13] MEDS ORDERED: ceFAZolin SOD 1 GM in D5W MINI-BAG PLUS 50 ML IV ONE (00:30)
[2020-04-13] MEDS ORDERED: GLUCOSE 4GM CHEW TABLET PO PRN (02:30)
[2020-04-13] MEDS ORDERED: DEXTROSE 50% 50 ML SYRINGE IV PRN (02:30)
[2020-04-13] MEDS ORDERED: MOM 30ML SUSPENSION UDC PO PRN (02:30)
[2020-04-13] MEDS ORDERED: MAALOX 30 ML SUSP *UDC PO PRN (02:30)
[2020-04-13] MEDS ORDERED: GLUCAGON INJ 1MG VIAL SC PRN (02:30)
--- NOTE | 2020-04-13 02:30 | HPEPDOC ---
[facility] Medical History & Physical Date of Admission Apr 13, 2020 Date of Service: Apr 13, 2020 History and Physical CHIEF COMPLAINT: fall HISTORY OF PRESENT ILLNESS: 59 yo M with type 1 DM, bilateral BKAs (R BKA on 03/[address] Haro, required ARU) presented to ER after he fell this morning in his bathroom after his R prosthetic leg fell off. He reports that the prosthesis has been loose fitting, and he has an appointment with DME purveyors to assist him on 04/19/20. He denies dizziness, lightheadedness, chest pain at the time of fall. On arrival to ED, he was found to be hypoglycemic to BG 17. he was given several amps of D50, but ultimately required a D10 drip. Patient has turned off his insulin pump. Further, he rports significant pain to palpation of the skin surrounding the suture site on the R BKA, with concern for cellulitis. Patient was febrile on arrival to 101.4. HR 92. BP 174/62. Pulse ox 92-98% on RA. Labs on arrival: WBC 10.8. Hgb 9.7. Hct 9.7. BG 17. UA clean. XR of the R BKA stump shows no acute changes. CXR without consolidation. Patient will be admitted to hospitalist service for management of sepsis 2/2 cellulitis of R BKA stump and resultant hypoglycemia. PAST MEDICAL HISTORY: Type 1 DM, insulin pump brain tumor temporal arteritis adrenal insufficiency peripheral vascular disease PAST SURGICAL HISTORY: Bilateral BKA. Cataract surgery Fatty tumor removal Right knee surgery Right wrist surgery SOCIAL HISTORY: former smoker denies etoh use denies illicits FAMILY HISTORY: reviewed with patient, non contributory ALLERGIES: Please see below. REVIEW OF SYSTEMS: positives as per HPI HOME MEDICATIONS: Please see below. PHYSICAL EXAMINATION: VITAL SIGNS: please see below General: NAD, comfortable HEENT: PERRLA, EOMI, sclerae clear Neck: supple, normal ROM, no JVD Respiratory: lungs CTAB, no wheeze, no rales, no crackles CVS: RRR, normal S1, S2, no murmurs Abdo: soft, no masses, no hepatosplenomegaly, BS+, no rebound tenderness Extremities: no edema, pulses 2+ MSK: bilateral BKAs. R stump suture skin erythematous, tender to touch, non purulent. no fluctuant masses. Neuro: no focal neuro deficits, moving all 4 extremities, CN2-12 intact. Strength 5/5 in all 4 extremities. No nystagmus. Psych: calm, cooperative, AAO x 3 LABORATORY DATA: See below. IMAGING: MICROBIOLOGY: Please see below. ASSESSMENT: 59 yo M with type 1 DM, bilateral BKAs admitted to hospitalist service for management of sepsis 2/2 cellulitis of R BKA stump and resultant hypoglycemia. . PLAN: #Sepsis 2/2 cellulitis of R BKA stump - blood cultures pending - tylenol for fevers - vancomycin IV, ceftriaxone - MRSA screen - D10 half normal #Type 1 DM: - severe hypoglycemia, BG 17 - insulin pump off at this time - d10/0.45% saline drip - accuchecks q2h - ISS, hold schedule insulin/pump - hypoglycemic precautions #Peripheral vascular disease - ASA/plavix #Adrenal insufficiency - c/w prednisone #Glaucoma - resume home meds #BPH/hx urinary retention - resume home meds DVT ppx: lovenox. Dispo: admission expected to span > 2 midnights. Vital Signs Vital Signs Date Time Temp Pulse Resp B/P (MAP) Pulse Ox O2 Delivery O2 Flow Rate FiO2 04/13/20 00:01 180/74 (109) 04/12/20 23:54 67 97 04/12/20 19:39 101.4 17 Room Air Laboratory Data Labs 24H Laboratory Tests 2 04/12/20 20:23: Immature Granulocyte % (Auto) 0.5, Neutrophils (%) (Auto) 63.8, Lymphocytes (%) (Auto) 23.1L, Monocytes (%) (Auto) 11.1H, Eosinophils (%) (Auto) 1.1, Basophils (%) (Auto) 0.4, Neutrophils # (Auto) 6.6, Lymphocytes # (Auto) 2.4, Monocytes # (Auto) 1.1H, Eosinophils # (Auto) 0.1, Basophils # (Auto) 0.0, Nucleated Red Blood Cells % (auto) 0.0, Urine Color YELLOW, Urine Appearance CLEAR, Urine pH 8.0, Urine Specific [place] 1.009, Urine Protein NEGATIVE, Urine Glucose (UA) NEGATIVE, Urine Ketones NEGATIVE, Urine Blood NEGATIVE, Urine Nitrite NEGATIVE, Urine Bilirubin NEGATIVE, Urine Urobilinogen 0.2, Urine Leukocyte Esterase NEGATIVE, Urine WBC (Auto) 0, Urine RBC (Auto) 3, Urine Hyaline Casts (Auto) 0, Urine Bacteria (Auto) NEGATIVE, Urine Squamous Epithelial Cells 0, Urine Sperm (Auto) , Lactic Acid Level 0.9 04/12/20 21:25: Anion Gap 7L, Glomerular Filtration Rate 59.9, Calcium Level 8.3L, Total Bilirubin 0.3, Direct Bilirubin < 0.1, Aspartate Amino Transf (AST/SGOT) 25, Alanine Aminotransferase (ALT/SGPT) 25, Alkaline Phosphatase 107, Total Protein 6.3L, Albumin 3.3, Albumin/Globulin Ratio 1.1, Thyroid Stimulating Hormone (TSH) 2.200, Free Thyroxine 0.81 04/12/20 21:32: Bedside Glucose (Misc Panel) 17*L 04/12/20 22:21: Bedside Glucose (Misc Panel) 61L 04/12/20 23:30: Bedside Glucose (Misc Panel) 30*L 04/12/20 23:32: Bedside Glucose (Misc Panel) 34*L 04/13/20 01:01: Bedside Glucose (Misc Panel) 123H CBC/BMP Laboratory Tests 04/12/20 20:23 04/12/20 21:25 Microbiology Microbiology 04/12/20 Respiratory Virus Panel (PCR) (DARLINE) - Final, Complete 04/12/20 Blood Culture, Received Pending 04/12/20 Blood Culture, Received Pending Home Medications Scheduled Aspirin (Aspirin EC) 81 Mg Tablet.dr, 81 MG PO DAILY Atorvastatin Calcium (Atorvastatin Calcium) 40 Mg Tablet, 40 MG PO DAILY Bimatoprost (Lumigan) 0.01% 2.5ML Drops, 1 DROP OS QHS Brimonidine Tartrate (Alphagan P) 0.1% 5ML Drops, 1 DROP OS BID Citalopram Hydrobromide (Citalopram HBr) 40 Mg Tablet, 40 MG PO DAILY Clopidogrel Bisulfate (Plavix) 75 Mg Tablet, 75 MG PO DAILY Docusate Sodium (Dok) 100 Mg Tablet, 100 MG PO BID Ferrous Sulfate (Ferrous Sulfate) 325 Mg Tab, 325 MG PO QWEEK SUNDAY Finasteride (Finasteride) 5 Mg Tablet, 5 MG PO DAILY Gabapentin (Gabapentin) 300 Mg Capsule, 300 MG PO BID Insulin Human Lispro (Novolog) 100 Unit/1 Ml Vial, 1 DOSE SC ASDIRECTED UP TO 100 UNITS DAILY CONTINUOUS THROUGH INSULIN PUMP Multivitamins (Thera M Plus Tablet) 1 Each Tablet, 1 TAB PO DAILY Pantoprazole Sodium (Pantoprazole Sodium) 40 Mg Tablet.dr, 40 MG PO BID Prednisone (Prednisone) 5 Mg Tablet, 1 TAB PO ASDIRECTED 4 tab PO daily x 4 days, 3 tab po daily x 4 days, 2 tab po daily x 4 days, return to prior dose Psyllium Husk (Fiber) 0.52 Gm Capsule, 0.52 GM PO DAILY Pyridostigmine [place] (Pyridostigmine [place]) 60 Mg Tablet, 60 MG PO DAILY Tamsulosin HCl (Flomax) 0.4 Mg Capsule, 0.4 MG PO QHS Scheduled PRN Glucagon,Human Recombinant (Glucagon Emergency Kit) 1 Mg Vial, 1 MG IM ASDIRECTED PRN for LOW BLOOD SUGAR Tramadol HCl (Tramadol HCl) 50 Mg Tablet, 50 MG PO Q6H PRN for MODERATE PAIN (PS 5-7) Allergies Coded Allergies: No Known Allergies (Unverified , 03/01/20) A-FIB/CHADSVASC A-FIB History Current/History of A-Fib/PAF?: No Current PO Anticoag Therapy: No DOUG MULLIGAN MD Apr 13, 2020 02:29
--- OUTSIDE RECORDS SUMMARY | 2020-04-13 02:33 | CCD | Continuity of Care Document ---
Author Author Hermann SIN PA Organization Unknown Address [address], [address] [place] [address] Phone [phone] Care Team Providers Care Coffee Grower Name Role Phone Christelle Cook M.D. AUTM [phone] AUTM Unavailable Job Raphael MD AUTM [phone] [facility] - Medical Records AUTM Kanu Velazquez M.D. AUTM [phone] Problems Active Problems Provider Date Hemorrhage [...] as directed Lester Echevarria M.D. 08/23/2017 Stump Handle Sander Operator To Left BKA as directed Lester Echevarria M.D. 08/23/2017 Referral For Evaluation And Treat To [facility] Lester Echevarria M.D. 08/22/2017 Clopidogrel Bisulfate [...] Available Vital Signs Date Vital Result Comment 04/12/2020 11:50am BP Systolic 123 mmHg BP Diastolic 73 mmHg Height 69 inches 5'9" Weight 143.00 lb stated BMI (Body Mass Index) 21.1 kg/m2 [place] Body Weight 160 lb Weight 64.865 kg BSA (Body Surface Area) 1.79 m2 04/05/2020 9:23am BP Systolic 110 mmHg BP Diastolic 63 mmHg Height 69 inches 5'9" Weight 143.00 lb BMI (Body Mass Index) 21.1 kg/m2 [place] Body Weight 160 lb Weight 64.865 kg BSA (Body Surface Area) 1.79 m2 Results Test Acquired Date Facility Test Result H/L Range Note Laboratory test finding 12/31/2019 [facility] Main Lab [address], [place] [id number] [phone] Bedside Glucose 142 mg/dL High 80-115 Laboratory test finding 12/31/2019 [facility] Main Lab [address], [place] [id number] [phone] Bedside Glucose 131 mg/dL High 80-115 Complete Blood Count 12/17/2019 [facility] [place] [address] [phone] White Blood Count 6.8 10 Normal 4.0-10.0 [...] % Normal 0-0 Basic Metabolic Profile 12/17/2019 [facility] [place] [address] [phone] Glucose, Fasting 158 mg/dL High 70-100 Blood [...] Little GFR Left ESRD GFR <15 on LABORER OPERATOR Procedures Date Code Description Status 03/03/2020 63496 Amputation Below Knee Completed 12/31/2019 51823 Moderate Sedation Se rvices; Same Phys Intl 15 Mins; PT >= 5 Years Completed 12/31/2019 84608 Revascularization,Endovascular W / Transluminal Angioplasty Completed 12/31/2019 97113 Revascularization,Endovascular W /Transluminal Angioplasty Completed 12/31/2019 49193 Revascularization,Endovascular,T ransluminal Angioplasty Completed Medical Devices Description No Information Available Encounters Type Date Location Provider Dx Diagnosis Office Visit 04/05/2020 9:15a [facility] KATERYNA Bowling Z89.511 Acquired absence of right leg below knee I70.235 [facility] [place] [facility] of ri ght leg w ulcer oth prt foot Z89.512 Acquired absence of left leg below knee Office Visit 02/23/2020 1:30p [facility] Kathy angeles MD I70.261 [facility] [place] [facility] of extremities w gangrene, right leg Office Visit 01/20/2020 11:30a [facility] KATERYNA Bowling I70.235 [facility] [place] [facility] of right leg w ul cer oth prt foot Z89.512 Acquired absence of left leg below knee Office Visit 12/17/2019 9:00a [facility] KATERYNA Bowling I70.235 [facility] [place] [facility] of right leg w ul cer oth prt foot L97.519 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 unsp severity Z89.512 Acquired absence of left leg below knee Office Visit 11/05/2019 11:30a [facility] Brandin Velazquez M.D. K31.5 Obstruction of duodenum K27.7 Chronic peptic ulcer, site u nsp, w/o hemorrhage or perf Office Visit 11/04/2019 11:20a [facility] Perry Raphael MD K27.7 Chronic peptic ulcer, site u nsp, w/o hemorrhage or perf Office Visit 10/16/2019 10:00a [facility] KATERYNA Bowling L97.519 Non-prs chronic ulcer oth prt right foot w unsp severity Z89.512 Acquired absence of left leg below knee I70.235 [facility] [place] [facility] of ri ght leg w ulcer oth prt foot Assessments Date Code Description Provider 04/05/2020 Z89.511 [...] ulceration of other part of foot KATERYNA aPinter Plan of Treatment Future Appointment(s):* 04/26/2020 1:30 pm - Kanu Velazquez M.D. at [facility] 04/12/2020 - KATERYNA Painter* Z89.511 Acquired absence of right leg below knee Functional Status Description No Information Available Mental Status Description No Information Available Referrals Description No Information Available
--- OUTSIDE RECORDS SUMMARY | 2020-04-13 02:35 | CCD ---
Author Author [facility] Organization [facility] Address Unknown Phone Unavailable Care Team Providers Care Administrative Assistant Front Desk Name Role Phone Hanna Boss MD Unavailable [...] Unavailable Unavailable Zeeshan CHAPAW DPM Unavailable Unavailable MAJSALENA, R MOOSE DPM Unavailable Unavailable MAJSALENA, R MOOSE DPM Unavailable Unavailable MAJSALENA, R MOOSE DPM Unavailable Unavailable MAJSALENA R [...] L Florencia RPA Unavailable Unavailable Dumont, L Flroencia RPA Unavailable Unavailable Dumont, L Florencia RPA [...] Unavailable Christopher CAPPS MD Unavailable Unavailable Christopher CPAPS MD Unavailable Unavailable Christopher CAPPS MD Unavailable Unavailable Christopher CAPPS MD Unavailable Unavailable Christopher CAPPS MD Unavailable Unavailable Christopher CAPPS MD Unavailable Unavailable Christopher CAPPS MD Unavailable Unavailable Christopher CAPPS MD Unavailable Unavailable Christopher CAPPS MD Unavailable Unavailable Christopher CPAPS MD Unavailable Unavailable Shelby Kuhn MD Unavailable [...] is protected by Article 27-F of the [facility] Public Health law. If you continue you may have access to information: Regarding HIV / AIDS; Provided by facilities licensed or operated by the [facility] Office of Mental Health; or Provided by the [facility] Office for People With Developmental Disabilities. If such information is present, then the following [facility] mandated warning applies: This information has [...] law may result in a fine or [place] health care facility sentence or both. A general authorization for the release of medical or other information is NOT sufficient authorization for further disc losure. Family History Family Member Name Family Member Gender Family Member Status Date o f Status Description Data Source(s) Unknown Unknown Problem MEDENT ([facility]) father Encounters Encounter Providers Location Date Indications Data Source(s ) Office Visit Attender: Florencia Mcnair/Анна/Indra/Zeeshan mcdowell 04/05/2020 08:15:00 AM EST MEDENT ([facility]) [place] [address] [facility] [address] 03/31/2020 12:00:00 AM EST eCW1 ([facility]) Unknown [address] [facility] [address] 03/31/2020 12:00:00 AM EST eCW1 [facility] [place] [address] [facility] [place] [address] 03/29/2020 12:00:00 AM EST eCW1 ([facility]) [place] [address] [facility] [place] [address] 03/24/2020 12:00:00 AM EST eCW1 ([facility]) Unknown [address] [facility] [place] [address] 03/10/2020 12:00:00 AM EST [facility]CW1 [facility]) Outpatient Attender: Alex Kuhn MD CPSCAORT-CPSCAEND 03/02 02:32:00 PM EST - 03/02/2020 02:33:00 PM EST E10.65 [facility] E10.65 Patient discharged. Unknown [address] [facility] [address] 03/01/2020 12:00:00 AM EST eCW1 ([facility]) Outpatient Attender: Kathy Mcnair/Анна/Indra/ Talon 02/23/2020 12:30:00 PM EST MEDENT ([facility]) ([id number]) For Template [place] [address] [place] [phone] 02/23/2020 12:00:00 AM EST eCW1 ([facility]) Unknown [address] [facility] [address] 02/20/2020 12:00:00 AM EST eCW1 ([facility]) Office Visit, Est Pt., Level 2 FC [address] [place] [address] 02/19/2020 12:00:00 AM EST eCW1 ([facility]) Unknown [address] [facility] [address] 02/19/2020 12:00:00 AM EST eCW1 ([facility]) Office Visit Attender: MOOSE CHAPA [facility] Office 01/31 12:00:00 PM EST MEDENT ([facility] Unknown [address] [facility] [address] 02/18/2020 12:00:00 AM EST eCW1 ([facility]) Unknown [address] [facility] [address] 02/10/2020 12:00:00 AM EST eCW1 ([facility]) Outpatient [address] [facility] [address] 02/09/2020 12:00:00 AM EST eCW1 ([facility]) Unknown [address] [facility] [address] 02/04/2020 12:00:00 AM EST eCW1 ([facility]) Office Visit Attender: MOOSE CHAPA [facility] Office 05/2019 01:45:00 PM EST MEDENT ([facility] Unknown [address] [facility] [address] 01/26/2020 12:00:00 AM EDT eCW1 ([facility]) Outpatient Attender: MOOSE CHAPA [facility] Office 01/01 02:30:00 PM EDT MEDENT ([facility] Outpatient Attender: Florencia Mcnair/Анна/Indra/Zeeshan mcdowell 01/20/2020 11:30:00 AM EDT MEDENT ([facility]) Outpatient [address] [facility] [address] 01/19/2020 12:00:00 AM EDT eCW1 ([facility]) ([id number]) For [facility] [place] [address] [place] [address] 01/09/2020 12:00:00 AM EDT eCW1 ([facility]) Unknown [address] [facility] [address] 01/01/2020 12:00:00 AM EDT eCW1 ([facility]) Unknown [address] [facility] [address] 12/30/2019 12:00:00 AM EDT eCW1 ([facility]) Outpatient Attender: Florencia Dumont RPA Xu/Homer/Indra/R eindl 12/17/2019 09:00:00 AM EDT MEDENT ([facility]) Outpatient Attender: Alex Kuhn MD CPSCAORT-CPSCAEND 11/30 02:51:00 PM EDT - 12/01/2019 02:52:00 PM EDT E10.65 [facility] E10.65 Patient discharged. Outpatient Attender: DILSHAD Mcnair/Homer/Ang el/Reindl 11/05/2019 11:30:00 AM EDT MEDENT ([facility]) Outpatient Attender: RAISA Mcnair/Homer/Indra/ Reindl 11/04/2019 11:20:00 AM EDT MEDENT ([facility]) Outpatient Attender: Florencia Dumont RPA Xu/Homer/Indra/R eindl 10/16/2019 10:00:00 AM EDT MEDENT ([facility]) Unknown [address] [facility] [address] 10/16/2019 12:00:00 AM EDT eCW1 ([facility]) Outpatient Attender: RAISA Mcnair/Homer/Indra/ Reindl 10/07/2019 11:20:00 AM EDT MEDENT ([facility]) Outpatient Attender: Florencia Dumont RPA Xu/Homer/Indra/R eindl 09/25/2019 01:30:00 PM EDT MEDENT ([facility]) Outpatient Attender: Florencia Dumont RPA Xu/Homer/Indra/R eindl 09/24/2019 10:00:00 AM EDT MEDENT ([facility]) Outpatient [address] [facility] [address] 09/18/2019 12:00:00 AM EDT eCW1 ([facility]) Unknown [address] [facility] [place] [address] 09/12/2019 12:00:00 AM EDT eCW1 ([facility]) Outpatient Attender: RAISA Mcnair/Анна/Indra/ Talon 09/09/2019 11:35:00 AM EDT MEDENT ([facility] [place] [address] [facility] [place] [address] 09/05/2019 12:00:00 AM EDT eCW1 ([facility]) Unknown [address] [facility] [place] [address] 09/03/2019 12:00:00 AM EDT eCW1 ([facility]) Outpatient 08/28/2019 09:03:00 AM EDT [facility] Unknown [address] [facility] [address] 08/26/2019 12:00:00 AM EDT eCW1 ([facility]) Outpatient Attender: Alex Kuhn MD CPSCAORT-CPSCAEND 08/19 02:44:00 PM EDT - 08/20/2019 02:45:00 PM EDT [facility] Patient discharged. [facility] [place] [address] [facility] [address] 08/20/2019 12:00:00 AM EDT eCW1 ([facility]) [facility] [address] [facility] [place] [address] 08/19/2019 12:00:00 AM EDT eCW1 ([facility]) [facility] [address] [facility] [address] 08/19/2019 12:00:00 AM EDT eCW1 ([facility]) Outpatient 08/13/2019 02:22:00 PM EDT [facility] [address] [facility] [place] [address] 08/12/2019 12:00:00 AM EDT eCW1 [facility] [address] [facility] [place] [address] 08/07/2019 12:00:00 AM EDT eCW1 ([facility]) [facility] [address] [facility] [place] [address] 08/05/2019 12:00:00 AM EDT eCW1 ([facility]) [facility] [address] [facility] [place] [address] 08/04/2019 12:00:00 AM EDT eCW1 ([facility]) [facility] [address] [place] [address] 06/25/2019 12:00:00 AM EDT eCW1 ([facility] [address] [facility] [address] 06/19/2019 12:00:00 AM EDT eCW1 ([facility]) [facility] [address] [place] [address] 06/18/2019 12:00:00 AM EDT eCW1 ([facility]) [facility] [address] [place] [address] 06/06/2019 12:00:00 AM EST eCW1 ([facility]) [facility] [address] [place] [address], [facility] [address] 04/30/2019 12:00:00 AM EST eCW1 ([facility]) Outpatient Attender: Alex Kuhn MD CPSCAORT-CPSCAEND 04/24 03:04:00 PM EST - 04/24/2019 03:05:00 PM EST E10.65 [facility] E10.65 Patient discharged. [facility] [address] [facility] [address] 04/22/2019 12:00:00 AM EST eCW1 ([facility]) [facility] [address] [facility] [place] [address] 04/15/2019 12:00:00 AM EST eCW1 ([facility]) [facility] [place] [address] [facility] [place] [address] 04/07/2019 12:00:00 AM EST eCW1 ([facility]) [facility] [place] [address] [facility] [place] [address] 02/25/2019 12:00:00 AM EST eCW1 ([facility]) [facility] [place] [address] [facility] [place] [address] 02/20/2019 12:00:00 AM EST eCW1 ([facility]) [facility] [address] [facility] [place] [address] 02/13/2019 12:00:00 AM EST eCW1 ([facility]) Outpatient Attender: Alex Kuhn MD CPSCAORT-CPSCAEND 01/14 02:06:00 PM EDT - 01/14/2019 02:07:00 PM EDT E10.65 [facility] E10.65 Patient discharged. Medications Medication Brand Name Start Date Product Form Dose Route Admi nistrative Instructions Pharmacy Instructions Status Indications Reaction Description Data Source(s) Misc. Devices - UNK 03/11/2020 12:00:00 AM EST active Misc. Devices - eCW1 ([facility]) Misc. Devices - UNK 03/11/2020 12:00:00 AM EST active Misc. Devices - eCW1 ([facility]) Misc. Devices - UNK 03/11/2020 12:00:00 AM EST active Misc. Devices - eCW1 ([facility]) Misc. Devices - UNK 03/11/2020 12:00:00 AM EST active Misc. Devices - eCW1 ([facility]) Misc. Devices - UNK 03/11/2020 12:00:00 AM EST active Misc. Devices - eCW1 ([facility]) Misc. Devices - UNK 03/11/2020 12:00:00 AM EST active Misc. Devices - eCW1 ([facility]) Wheelchair - Wheelchair - 02/24/2020 12:00:00 AM EST active Wheelchair - eCW1 ([facility]) Wheelchair - Wheelchair - 02/24/2020 12:00:00 AM EST active Wheelchair - eCW1 ([facility]) Wheelchair - Wheelchair - 02/24/2020 12:00:00 AM EST active Wheelchair - eCW1 ([facility]) Wheelchair - Wheelchair - 02/24/2020 12:00:00 AM EST active Wheelchair - eCW1 ([facility]) Wheelchair - Wheelchair - 02/24/2020 12:00:00 AM EST active Wheelchair - eCW1 ([facility]) Wheelchair - Wheelchair - 02/24/2020 12:00:00 AM EST active Wheelchair - eCW1 ([facility]) Wheelchair - Wheelchair - 02/24/2020 12:00:00 AM EST active Wheelchair - eCW1 ([facility]) Wheelchair - Wheelchair - 02/24/2020 12:00:00 AM EST active Wheelchair - eCW1 ([facility]) Wheelchair - Wheelchair - 02/24/2020 12:00:00 AM EST active Wheelchair - eCW1 ([facility]) Cephalexin 500 MG Oral Capsule Cephalexin 02/02/2020 12:00:00 AM EST ORAL active [facility] tramadol hydrochloride 50 MG Oral Tablet Tramadol HCL 02/02/2020 12:00:00 AM EST active [facility] Sucralfate 100 MG/ML Oral Suspension Sucralfate 10/23/2019 12:00:00 A M EDT ORAL active MEDENT ([facility], ) pantoprazole 40 MG Delayed Release Oral Tablet Pantoprazole Sodium 10/07/2019 12:00:00 AM EDT active M EDENT ([facility], ) Finasteride 5 MG Oral Tablet [Proscar] Proscar 5 MG Proscar 5 MG 09/05/2019 12:00:00 AM EDT 1.0 {tablet} active Pr cassidy 5 MG eCW1 ([facility]) Finasteride 5 MG Oral Tablet [Proscar] Proscar 5 MG Proscar 5 MG 09/05/2019 12:00:00 AM EDT 1.0 {tablet} suspended Proscar 5 MG eCW1 ([facility]) Finasteride 5 MG Oral Tablet [Proscar] Proscar 5 MG Proscar 5 MG 09/05/2019 12:00:00 AM EDT 1.0 {tablet} suspended Proscar 5 MG eCW1 ([facility]) Finasteride 5 MG Oral Tablet [Proscar] Proscar 5 MG Proscar 5 MG 09/05/2019 12:00:00 AM EDT 1.0 {tablet} active Pr cassidy 5 MG eCW1 ([facility]) Finasteride 5 MG Oral Tablet [Proscar] Proscar 5 MG Proscar 5 MG 09/05/2019 12:00:00 AM EDT 1.0 {tablet} suspended Proscar 5 MG eCW1 ([facility]) Finasteride 5 MG Oral Tablet [Proscar] Proscar 5 MG Proscar 5 MG 09/05/2019 12:00:00 AM EDT 1.0 {tablet} suspended Proscar 5 MG eCW1 ([facility]) Finasteride 5 MG Oral Tablet [Proscar] Proscar 5 MG Proscar 5 MG 09/05/2019 12:00:00 AM EDT 1.0 {tablet} active Pr cassidy 5 MG eCW1 ([facility]) Finasteride 5 MG Oral Tablet [Proscar] Proscar 5 MG Proscar 5 MG 09/05/2019 12:00:00 AM EDT 1.0 {tablet} active Pr cassidy 5 MG eCW1 ([facility]) Finasteride 5 MG Oral Tablet [Proscar] Proscar 5 MG Proscar 5 MG 09/05/2019 12:00:00 AM EDT 1.0 {tablet} active Pr cassidy 5 MG eCW1 ([facility]) Finasteride 5 MG Oral Tablet [Proscar] Proscar 5 MG Proscar 5 MG 09/05/2019 12:00:00 AM EDT 1.0 {tablet} suspended Proscar 5 MG eCW1 ([facility]) Finasteride 5 MG Oral Tablet [Proscar] Proscar 5 MG Proscar 5 MG 09/05/2019 12:00:00 AM EDT 1.0 {tablet} suspended Proscar 5 MG eCW1 ([facility]) Finasteride 5 MG Oral Tablet [Proscar] Proscar 5 MG Proscar 5 MG 09/05/2019 12:00:00 AM EDT 1.0 {tablet} active Pr cassidy 5 MG eCW1 ([facility]) Finasteride 5 MG Oral Tablet [Proscar] Proscar 5 MG Proscar 5 MG 09/05/2019 12:00:00 AM EDT 1.0 {tablet} active Pr cassidy 5 MG eCW1 ([facility]) Finasteride 5 MG Oral Tablet [Proscar] Proscar 5 MG Proscar 5 MG 09/05/2019 12:00:00 AM EDT 1.0 {tablet} active Pr cassidy 5 MG eCW1 ([facility]) Finasteride 5 MG Oral Tablet [Proscar] Proscar 5 MG Proscar 5 MG 09/05/2019 12:00:00 AM EDT 1.0 {tablet} active Pr cassidy 5 MG eCW1 ([facility]) Finasteride 5 MG Oral Tablet [Proscar] Proscar 5 MG Proscar 5 MG 09/05/2019 12:00:00 AM EDT 1.0 {tablet} active Pr cassidy 5 MG eCW1 ([facility]) Finasteride 5 MG Oral Tablet [Proscar] Proscar 5 MG Proscar 5 MG 09/05/2019 12:00:00 AM EDT 1.0 {tablet} suspended Proscar 5 MG eCW1 ([facility]) Finasteride 5 MG Oral Tablet [Proscar] Proscar 5 MG Proscar 5 MG 09/05/2019 12:00:00 AM EDT 1.0 {tablet} suspended Proscar 5 MG eCW1 ([facility]) Finasteride 5 MG Oral Tablet [Proscar] Proscar 5 MG Proscar 5 MG 09/05/2019 12:00:00 AM EDT 1.0 {tablet} active Pr cassidy 5 MG eCW1 ([facility]) Finasteride 5 MG Oral Tablet [Proscar] Proscar 5 MG Proscar 5 MG 09/05/2019 12:00:00 AM EDT 1.0 {tablet} active Pr cassidy 5 MG eCW1 ([facility]) Finasteride 5 MG Oral Tablet [Proscar] Proscar 5 MG Proscar 5 MG 09/05/2019 12:00:00 AM EDT 1.0 {tablet} active Pr cassidy 5 MG eCW1 ([facility]) Finasteride 5 MG Oral Tablet [Proscar] Proscar 5 MG Proscar 5 MG 09/05/2019 12:00:00 AM EDT 1.0 {tablet} active Pr cassidy 5 MG eCW1 ([facility]) Finasteride 5 MG Oral Tablet [Proscar] Proscar 5 MG Proscar 5 MG 09/05/2019 12:00:00 AM EDT 1.0 {tablet} suspended Proscar 5 MG eCW1 ([facility]) Finasteride 5 MG Oral Tablet [Proscar] Proscar 5 MG Proscar 5 MG 09/05/2019 12:00:00 AM EDT 1.0 {tablet} active Pr cassidy 5 MG eCW1 ([facility]) Finasteride 5 MG Oral Tablet [Proscar] Proscar 5 MG Proscar 5 MG 09/05/2019 12:00:00 AM EDT 1.0 {tablet} active Pr cassidy 5 MG eCW1 ([facility]) Insulin, Aspart, Human 100 UNT/ML Inject able Solution [NovoLog] NovoLog 100 UNIT/ML NovoLog 100 UNIT/ML 08/06/2019 12:00:00 AM EDT active NovoLog 100 UNIT/ML eCW1 ([facility]) latanoprost 0.05 MG/ML Ophthalmic Solution Latanoprost 0.005 % Latanoprost 0.005 % 08/06/2019 12:00:00 AM EDT 1.0 {drop_into_affected_eye_in_ the_evening} active Latanoprost 0.005 % eCW1 ([facility]) Prednisone 5 MG Oral Tablet PredniSONE 5 MG PredniSONE 5 MG 08/06/2019 12:00:00 AM EDT 1.0 {tablet} active PredniSONE 5 MG eCW1 ([facility]) latanoprost 0.05 MG/ML Ophthalmic Solution Latanoprost 0.005 % Latanoprost 0.005 % 08/06/2019 12:00:00 AM EDT active 1 drop into affected eye in the evening eCW1 ([facility]) Insulin, Aspart, Human 100 UNT/ML Inject able Solution [NovoLog] NovoLog 100 UNIT/ML NovoLog 100 UNIT/ML 08/06/2019 12:00:00 AM EDT active NovoLog 100 UNIT/ML eCW1 ([facility]) Insulin, Aspart, Human 100 UNT/ML Inject able Solution [NovoLog] NovoLog 100 UNIT/ML NovoLog 100 UNIT/ML 08/06/2019 12:00:00 AM EDT active NovoLog 100 UNIT/ML eCW1 ([facility]) Sucralfate 1000 MG Oral Tablet Sucralfate 1 GM Sucralfate 1 GM 08/06/2019 12:00:00 AM EDT active 1 tablet on an empty stomach eCW1 ([facility]) Acetaminophen 500 MG Oral Tablet Acetaminophen 500 MG 2019 12:00:00 AM EDT 1.0 {tablet_as_needed} active A cetaminophen 500 MG eCW1 ([facility]) latanoprost 0.05 MG/ML Ophthalmic Solution Latanoprost 0.005 % Latanoprost 0.005 % 08/06/2019 12:00:00 AM EDT 1.0 {drop_into_affected_eye_in_ the_evening} active Latanoprost 0.005 % eCW1 ([facility]) Sucralfate 1000 MG Oral Tablet Sucralfate 1 GM Sucralfate 1 GM 08/06/2019 12:00:00 AM EDT 1.0 {tablet_on_an_empty_stomach} active Sucralfate 1 GM eCW1 ([facility]) Acetaminophen 500 MG Oral Tablet Acetaminophen 500 MG 2019 12:00:00 AM EDT 1.0 {tablet_as_needed} active A cetaminophen 500 MG eCW1 ([facility]) Acetaminophen 500 MG Oral Tablet Acetaminophen 500 MG 2019 12:00:00 AM EDT 1.0 {tablet_as_needed} active A cetaminophen 500 MG eCW1 ([facility]) Sucralfate 1000 MG Oral Tablet Sucralfate 1 GM Sucralfate 1 GM 08/06/2019 12:00:00 AM EDT 1.0 {tablet_on_an_empty_stomach} active Sucralfate 1 GM eCW1 ([facility]) Prednisone 5 MG Oral Tablet PredniSONE 5 MG PredniSONE 5 MG 08/06/2019 12:00:00 AM EDT 1.0 {tablet} active PredniSONE 5 MG eCW1 ([facility]) Acetaminophen 500 MG Oral Tablet Acetaminophen 500 MG 2019 12:00:00 AM EDT 1.0 {tablet_as_needed} active A cetaminophen 500 MG eCW1 ([facility]) pantoprazole 40 MG Delayed Release Oral Tablet [Proton ix] Protonix 40 MG Protonix 40 MG 08/06/2019 12:00:00 AM EDT 1.0 {tablet} active Protonix 40 MG eCW1 ([facility]) pantoprazole 40 MG Delayed Release Oral Tablet [Proton ix] Protonix 40 MG Protonix 40 MG 08/06/2019 12:00:00 AM EDT 1.0 {tablet} suspended Protonix 40 MG eCW1 ([facility]) Insulin, Aspart, Human 100 UNT/ML Inject able Solution [NovoLog] NovoLog 100 UNIT/ML NovoLog 100 UNIT/ML 08/06/2019 12:00:00 AM EDT suspended NovoLog 100 UNIT/ML eCW1 ([facility]) latanoprost 0.05 MG/ML Ophthalmic Solution Latanoprost 0.005 % Latanoprost 0.005 % 08/06/2019 12:00:00 AM EDT 1.0 {drop_into_affected_eye_in_ the_evening} active Latanoprost 0.005 % eCW1 ([facility]) pantoprazole 40 MG Delayed Release Oral Tablet [Proton ix] Protonix 40 MG Protonix 40 MG 08/06/2019 12:00:00 AM EDT 1.0 {tablet} active Protonix 40 MG eCW1 ([facility]) pantoprazole 40 MG Delayed Release Oral Tablet [Proton ix] Protonix 40 MG Protonix 40 MG 08/06/2019 12:00:00 AM EDT 1.0 {tablet} active Protonix 40 MG eCW1 ([facility]) Sucralfate 1000 MG Oral Tablet Sucralfate 1 GM Sucralfate 1 GM 08/06/2019 12:00:00 AM EDT 1.0 {tablet_on_an_empty_stomach} active Sucralfate 1 GM eCW1 ([facility]) pantoprazole 40 MG Delayed Release Oral Tablet [Proton ix] Protonix 40 MG Protonix 40 MG 08/06/2019 12:00:00 AM EDT 1.0 {tablet} active Protonix 40 MG eCW1 ([facility]) latanoprost 0.05 MG/ML Ophthalmic Solution Latanoprost 0.005 % Latanoprost 0.005 % 08/06/2019 12:00:00 AM EDT 1.0 {drop_into_affected_eye_in_ the_evening} active Latanoprost 0.005 % eCW1 ([facility]) Sucralfate 1000 MG Oral Tablet Sucralfate 1 GM Sucralfate 1 GM 08/06/2019 12:00:00 AM EDT 1.0 {tablet_on_an_empty_stomach} active Sucralfate 1 GM eCW1 ([facility]) Prednisone 5 MG Oral Tablet PredniSONE 5 MG PredniSONE 5 MG 08/06/2019 12:00:00 AM EDT active 1 tablet eCW1 ([facility]) pantoprazole 40 MG Delayed Release Oral Tablet [Proton ix] Protonix 40 MG Protonix 40 MG 08/06/2019 12:00:00 AM EDT 1.0 {tablet} active Protonix 40 MG eCW1 ([facility]) Acetaminophen 500 MG Oral Tablet Acetaminophen 500 MG 2019 12:00:00 AM EDT active 1 tablet as neede d eCW1 ([facility]) Sucralfate 1000 MG Oral Tablet Sucralfate 1 GM Sucralfate 1 GM 08/06/2019 12:00:00 AM EDT 1.0 {tablet_on_an_empty_stomach} active Sucralfate 1 GM eCW1 ([facility]) Acetaminophen 500 MG Oral Tablet Acetaminophen 500 MG 2019 12:00:00 AM EDT 1.0 {tablet_as_needed} active A cetaminophen 500 MG eCW1 ([facility]) Acetaminophen 500 MG Oral Tablet Acetaminophen 500 MG 2019 12:00:00 AM EDT 1.0 {tablet_as_needed} active A cetaminophen 500 MG eCW1 ([facility]) latanoprost 0.05 MG/ML Ophthalmic Solution Latanoprost 0.005 % Latanoprost 0.005 % 08/06/2019 12:00:00 AM EDT 1.0 {drop_into_affected_eye_in_ the_evening} active Latanoprost 0.005 % eCW1 ([facility]) Sucralfate 1000 MG Oral Tablet Sucralfate 1 GM Sucralfate 1 GM 08/06/2019 12:00:00 AM EDT 1.0 {tablet_on_an_empty_stomach} active Sucralfate 1 GM eCW1 ([facility]) pantoprazole 40 MG Delayed Release Oral Tablet [Proton ix] Protonix 40 MG Protonix 40 MG 08/06/2019 12:00:00 AM EDT 1.0 {tablet} suspended Protonix 40 MG eCW1 ([facility]) Prednisone 5 MG Oral Tablet PredniSONE 5 MG PredniSONE 5 MG 08/06/2019 12:00:00 AM EDT 1.0 {tablet} active PredniSONE 5 MG eCW1 ([facility]) latanoprost 0.05 MG/ML Ophthalmic Solution Latanoprost 0.005 % Latanoprost 0.005 % 08/06/2019 12:00:00 AM EDT 1.0 {drop_into_affected_eye_in_ the_evening} active Latanoprost 0.005 % eCW1 ([facility]) latanoprost 0.05 MG/ML Ophthalmic Solution Latanoprost 0.005 % Latanoprost 0.005 % 08/06/2019 12:00:00 AM EDT 1.0 {drop_into_affected_eye_in_ the_evening} active Latanoprost 0.005 % eCW1 ([facility]) Acetaminophen 500 MG Oral Tablet Acetaminophen 500 MG 2019 12:00:00 AM EDT 1.0 {tablet_as_needed} active A cetaminophen 500 MG eCW1 ([facility]) Acetaminophen 500 MG Oral Tablet Acetaminophen 500 MG 2019 12:00:00 AM EDT 1.0 {tablet_as_needed} active A cetaminophen 500 MG eCW1 ([facility]) Prednisone 5 MG Oral Tablet PredniSONE 5 MG PredniSONE 5 MG 08/06/2019 12:00:00 AM EDT 1.0 {tablet} active PredniSONE 5 MG eCW1 ([facility]) Sucralfate 1000 MG Oral Tablet Sucralfate 1 GM Sucralfate 1 GM 08/06/2019 12:00:00 AM EDT active 1 tablet on an empty stomach eCW1 ([facility]) latanoprost 0.05 MG/ML Ophthalmic Solution Latanoprost 0.005 % Latanoprost 0.005 % 08/06/2019 12:00:00 AM EDT 1.0 {drop_into_affected_eye_in_ the_evening} active Latanoprost 0.005 % eCW1 ([facility]) Prednisone 5 MG Oral Tablet PredniSONE 5 MG PredniSONE 5 MG 08/06/2019 12:00:00 AM EDT 1.0 {tablet} active PredniSONE 5 MG eCW1 ([facility]) Prednisone 5 MG Oral Tablet PredniSONE 5 MG PredniSONE 5 MG 08/06/2019 12:00:00 AM EDT 1.0 {tablet} active PredniSONE 5 MG eCW1 ([facility]) Acetaminophen 500 MG Oral Tablet Acetaminophen 500 MG 2019 12:00:00 AM EDT 1.0 {tablet_as_needed} active A cetaminophen 500 MG eCW1 ([facility]) pantoprazole 40 MG Delayed Release Oral Tablet [Proton ix] Protonix 40 MG Protonix 40 MG 08/06/2019 12:00:00 AM EDT 1.0 {tablet} suspended Protonix 40 MG eCW1 ([facility]) pantoprazole 40 MG Delayed Release Oral Tablet [Proton ix] Protonix 40 MG Protonix 40 MG 08/06/2019 12:00:00 AM EDT 1.0 {tablet} active Protonix 40 MG eCW1 ([facility]) Sucralfate 1000 MG Oral Tablet Sucralfate 1 GM Sucralfate 1 GM 08/06/2019 12:00:00 AM EDT 1.0 {tablet_on_an_empty_stomach} active Sucralfate 1 GM eCW1 ([facility]) pantoprazole 40 MG Delayed Release Oral Tablet [Proton ix] Protonix 40 MG Protonix 40 MG 08/06/2019 12:00:00 AM EDT 1.0 {tablet} active Protonix 40 MG eCW1 ([facility]) latanoprost 0.05 MG/ML Ophthalmic Solution Latanoprost 0.005 % Latanoprost 0.005 % 08/06/2019 12:00:00 AM EDT 1.0 {drop_into_affected_eye_in_ the_evening} active Latanoprost 0.005 % eCW1 ([facility]) Insulin, Aspart, Human 100 UNT/ML Inject able Solution [NovoLog] NovoLog 100 UNIT/ML NovoLog 100 UNIT/ML 08/06/2019 12:00:00 AM EDT suspended NovoLog 100 UNIT/ML eCW1 ([facility]) Insulin, Aspart, Human 100 UNT/ML Inject able Solution [NovoLog] NovoLog 100 UNIT/ML NovoLog 100 UNIT/ML 08/06/2019 12:00:00 AM EDT active NovoLog 100 UNIT/ML eCW1 ([facility]) Prednisone 5 MG Oral Tablet PredniSONE 5 MG PredniSONE 5 MG 08/06/2019 12:00:00 AM EDT 1.0 {tablet} active PredniSONE 5 MG eCW1 ([facility]) Insulin, Aspart, Human 100 UNT/ML Inject able Solution [NovoLog] NovoLog 100 UNIT/ML NovoLog 100 UNIT/ML 08/06/2019 12:00:00 AM EDT active NovoLog 100 UNIT/ML eCW1 ([facility]) Prednisone 5 MG Oral Tablet PredniSONE 5 MG PredniSONE 5 MG 08/06/2019 12:00:00 AM EDT active 1 tablet eCW1 ([facility]) Acetaminophen 500 MG Oral Tablet Acetaminophen 500 MG 2019 12:00:00 AM EDT 1.0 {tablet_as_needed} active A cetaminophen 500 MG eCW1 ([facility]) Acetaminophen 500 MG Oral Tablet Acetaminophen 500 MG 2019 12:00:00 AM EDT 1.0 {tablet_as_needed} active A cetaminophen 500 MG eCW1 ([facility]) latanoprost 0.05 MG/ML Ophthalmic Solution Latanoprost 0.005 % Latanoprost 0.005 % 08/06/2019 12:00:00 AM EDT 1.0 {drop_into_affected_eye_in_ the_evening} active Latanoprost 0.005 % eCW1 ([facility]) Prednisone 5 MG Oral Tablet PredniSONE 5 MG PredniSONE 5 MG 08/06/2019 12:00:00 AM EDT 1.0 {tablet} active PredniSONE 5 MG eCW1 ([facility]) Insulin, Aspart, Human 100 UNT/ML Inject able Solution [NovoLog] NovoLog 100 UNIT/ML NovoLog 100 UNIT/ML 08/06/2019 12:00:00 AM EDT active NovoLog 100 UNIT/ML eCW1 ([facility]) Prednisone 5 MG Oral Tablet PredniSONE 5 MG PredniSONE 5 MG 08/06/2019 12:00:00 AM EDT 1.0 {tablet} active PredniSONE 5 MG eCW1 ([facility]) Prednisone 5 MG Oral Tablet PredniSONE 5 MG PredniSONE 5 MG 08/06/2019 12:00:00 AM EDT 1.0 {tablet} active PredniSONE 5 MG eCW1 ([facility]) Sucralfate 1000 MG Oral Tablet Sucralfate 1 GM Sucralfate 1 GM 08/06/2019 12:00:00 AM EDT 1.0 {tablet_on_an_empty_stomach} active Sucralfate 1 GM eCW1 ([facility]) Sucralfate 1000 MG Oral Tablet Sucralfate 1 GM Sucralfate 1 GM 08/06/2019 12:00:00 AM EDT 1.0 {tablet_on_an_empty_stomach} active Sucralfate 1 GM eCW1 ([facility]) Acetaminophen 500 MG Oral Tablet Acetaminophen 500 MG 2019 12:00:00 AM EDT 1.0 {tablet_as_needed} active A cetaminophen 500 MG eCW1 ([facility]) Acetaminophen 500 MG Oral Tablet Acetaminophen 500 MG 2019 12:00:00 AM EDT 1.0 {tablet_as_needed} active A cetaminophen 500 MG eCW1 ([facility]) Prednisone 5 MG Oral Tablet PredniSONE 5 MG PredniSONE 5 MG 08/06/2019 12:00:00 AM EDT 1.0 {tablet} active PredniSONE 5 MG eCW1 ([facility]) latanoprost 0.05 MG/ML Ophthalmic Solution Latanoprost 0.005 % Latanoprost 0.005 % 08/06/2019 12:00:00 AM EDT 1.0 {drop_into_affected_eye_in_ the_evening} active Latanoprost 0.005 % eCW1 ([facility]) pantoprazole 40 MG Delayed Release Oral Tablet [Proton ix] Protonix 40 MG Protonix 40 MG 08/06/2019 12:00:00 AM EDT 1.0 {tablet} active Protonix 40 MG eCW1 ([facility]) Insulin, Aspart, Human 100 UNT/ML Inject able Solution [NovoLog] NovoLog 100 UNIT/ML NovoLog 100 UNIT/ML 08/06/2019 12:00:00 AM EDT active NovoLog 100 UNIT/ML eCW1 ([facility]) Acetaminophen 500 MG Oral Tablet Acetaminophen 500 MG 2019 12:00:00 AM EDT 1.0 {tablet_as_needed} active A cetaminophen 500 MG eCW1 ([facility]) pantoprazole 40 MG Delayed Release Oral Tablet [Proton ix] Protonix 40 MG Protonix 40 MG 08/06/2019 12:00:00 AM EDT 1.0 {tablet} active Protonix 40 MG eCW1 ([facility]) Prednisone 5 MG Oral Tablet PredniSONE 5 MG PredniSONE 5 MG 08/06/2019 12:00:00 AM EDT 1.0 {tablet} active PredniSONE 5 MG eCW1 ([facility]) Insulin, Aspart, Human 100 UNT/ML Inject able Solution [NovoLog] NovoLog 100 UNIT/ML NovoLog 100 UNIT/ML 08/06/2019 12:00:00 AM EDT suspended NovoLog 100 UNIT/ML eCW1 ([facility]) Acetaminophen 500 MG Oral Tablet Acetaminophen 500 MG 2019 12:00:00 AM EDT 1.0 {tablet_as_needed} active A cetaminophen 500 MG eCW1 ([facility]) Acetaminophen 500 MG Oral Tablet Acetaminophen 500 MG 2019 12:00:00 AM EDT 1.0 {tablet_as_needed} active A cetaminophen 500 MG eCW1 ([facility]) Acetaminophen 500 MG Oral Tablet Acetaminophen 500 MG 2019 12:00:00 AM EDT active 1 tablet as neede d eCW1 ([facility]) pantoprazole 40 MG Delayed Release Oral Tablet [Proton ix] Protonix 40 MG Protonix 40 MG 08/06/2019 12:00:00 AM EDT 1.0 {tablet} suspended Protonix 40 MG eCW1 ([facility]) Insulin, Aspart, Human 100 UNT/ML Inject able Solution [NovoLog] NovoLog 100 UNIT/ML NovoLog 100 UNIT/ML 08/06/2019 12:00:00 AM EDT active NovoLog 100 UNIT/ML eCW1 ([facility]) Prednisone 5 MG Oral Tablet PredniSONE 5 MG PredniSONE 5 MG 08/06/2019 12:00:00 AM EDT 1.0 {tablet} active PredniSONE 5 MG eCW1 ([facility]) latanoprost 0.05 MG/ML Ophthalmic Solution Latanoprost 0.005 % Latanoprost 0.005 % 08/06/2019 12:00:00 AM EDT active 1 drop into affected eye in the evening eCW1 ([facility]) Sucralfate 1000 MG Oral Tablet Sucralfate 1 GM Sucralfate 1 GM 08/06/2019 12:00:00 AM EDT 1.0 {tablet_on_an_empty_stomach} active Sucralfate 1 GM eCW1 ([facility]) Insulin, Aspart, Human 100 UNT/ML Inject able Solution [NovoLog] NovoLog 100 UNIT/ML NovoLog 100 UNIT/ML 08/06/2019 12:00:00 AM EDT active NovoLog 100 UNIT/ML eCW1 ([facility]) Insulin, Aspart, Human 100 UNT/ML Inject able Solution [NovoLog] NovoLog 100 UNIT/ML NovoLog 100 UNIT/ML 08/06/2019 12:00:00 AM EDT suspended NovoLog 100 UNIT/ML eCW1 ([facility]) pantoprazole 40 MG Delayed Release Oral Tablet [Proton ix] Protonix 40 MG Protonix 40 MG 08/06/2019 12:00:00 AM EDT active 1 tablet eCW1 ([facility]) Prednisone 5 MG Oral Tablet PredniSONE 5 MG PredniSONE 5 MG 08/06/2019 12:00:00 AM EDT 1.0 {tablet} active PredniSONE 5 MG eCW1 ([facility]) Prednisone 5 MG Oral Tablet PredniSONE 5 MG PredniSONE 5 MG 08/06/2019 12:00:00 AM EDT 1.0 {tablet} active PredniSONE 5 MG eCW1 ([facility]) Sucralfate 1000 MG Oral Tablet Sucralfate 1 GM Sucralfate 1 GM 08/06/2019 12:00:00 AM EDT 1.0 {tablet_on_an_empty_stomach} active Sucralfate 1 GM eCW1 ([facility]) Insulin, Aspart, Human 100 UNT/ML Inject able Solution [NovoLog] NovoLog 100 UNIT/ML NovoLog 100 UNIT/ML 08/06/2019 12:00:00 AM EDT active as directed eCW1 ([facility]) Insulin, Aspart, Human 100 UNT/ML Inject able Solution [NovoLog] NovoLog 100 UNIT/ML NovoLog 100 UNIT/ML 08/06/2019 12:00:00 AM EDT suspended NovoLog 100 UNIT/ML eCW1 ([facility]) pantoprazole 40 MG Delayed Release Oral Tablet [Proton ix] Protonix 40 MG Protonix 40 MG 08/06/2019 12:00:00 AM EDT 1.0 {tablet} active Protonix 40 MG eCW1 ([facility]) Insulin, Aspart, Human 100 UNT/ML Inject able Solution [NovoLog] NovoLog 100 UNIT/ML NovoLog 100 UNIT/ML 08/06/2019 12:00:00 AM EDT suspended NovoLog 100 UNIT/ML eCW1 ([facility]) pantoprazole 40 MG Delayed Release Oral Tablet [Proton ix] Protonix 40 MG Protonix 40 MG 08/06/2019 12:00:00 AM EDT 1.0 {tablet} suspended Protonix 40 MG eCW1 ([facility]) Acetaminophen 500 MG Oral Tablet Acetaminophen 500 MG 2019 12:00:00 AM EDT 1.0 {tablet_as_needed} active A cetaminophen 500 MG eCW1 ([facility]) Insulin, Aspart, Human 100 UNT/ML Inject able Solution [NovoLog] NovoLog 100 UNIT/ML NovoLog 100 UNIT/ML 08/06/2019 12:00:00 AM EDT suspended NovoLog 100 UNIT/ML eCW1 ([facility]) Prednisone 5 MG Oral Tablet PredniSONE 5 MG PredniSONE 5 MG 08/06/2019 12:00:00 AM EDT 1.0 {tablet} active PredniSONE 5 MG eCW1 ([facility]) latanoprost 0.05 MG/ML Ophthalmic Solution Latanoprost 0.005 % Latanoprost 0.005 % 08/06/2019 12:00:00 AM EDT 1.0 {drop_into_affected_eye_in_ the_evening} active Latanoprost 0.005 % eCW1 ([facility]) latanoprost 0.05 MG/ML Ophthalmic Solution Latanoprost 0.005 % Latanoprost 0.005 % 08/06/2019 12:00:00 AM EDT 1.0 {drop_into_affected_eye_in_ the_evening} active Latanoprost 0.005 % eCW1 ([facility]) Prednisone 5 MG Oral Tablet PredniSONE 5 MG PredniSONE 5 MG 08/06/2019 12:00:00 AM EDT 1.0 {tablet} active PredniSONE 5 MG eCW1 ([facility]) latanoprost 0.05 MG/ML Ophthalmic Solution Latanoprost 0.005 % Latanoprost 0.005 % 08/06/2019 12:00:00 AM EDT 1.0 {drop_into_affected_eye_in_ the_evening} active Latanoprost 0.005 % eCW1 ([facility]) latanoprost 0.05 MG/ML Ophthalmic Solution Latanoprost 0.005 % Latanoprost 0.005 % 08/06/2019 12:00:00 AM EDT 1.0 {drop_into_affected_eye_in_ the_evening} active Latanoprost 0.005 % eCW1 ([facility]) Acetaminophen 500 MG Oral Tablet Acetaminophen 500 MG 2019 12:00:00 AM EDT 1.0 {tablet_as_needed} active A cetaminophen 500 MG eCW1 ([facility]) Sucralfate 1000 MG Oral Tablet Sucralfate 1 GM Sucralfate 1 GM 08/06/2019 12:00:00 AM EDT 1.0 {tablet_on_an_empty_stomach} active Sucralfate 1 GM eCW1 ([facility]) Acetaminophen 500 MG Oral Tablet Acetaminophen 500 MG 2019 12:00:00 AM EDT 1.0 {tablet_as_needed} active A cetaminophen 500 MG eCW1 ([facility]) latanoprost 0.05 MG/ML Ophthalmic Solution Latanoprost 0.005 % Latanoprost 0.005 % 08/06/2019 12:00:00 AM EDT 1.0 {drop_into_affected_eye_in_ the_evening} active Latanoprost 0.005 % eCW1 ([facility]) Sucralfate 1000 MG Oral Tablet Sucralfate 1 GM Sucralfate 1 GM 08/06/2019 12:00:00 AM EDT 1.0 {tablet_on_an_empty_stomach} active Sucralfate 1 GM eCW1 ([facility]) Insulin, Aspart, Human 100 UNT/ML Inject able Solution [NovoLog] NovoLog 100 UNIT/ML NovoLog 100 UNIT/ML 08/06/2019 12:00:00 AM EDT suspended NovoLog 100 UNIT/ML eCW1 ([facility]) Prednisone 5 MG Oral Tablet PredniSONE 5 MG PredniSONE 5 MG 08/06/2019 12:00:00 AM EDT 1.0 {tablet} active PredniSONE 5 MG eCW1 ([facility]) pantoprazole 40 MG Delayed Release Oral Tablet [Proton ix] Protonix 40 MG Protonix 40 MG 08/06/2019 12:00:00 AM EDT 1.0 {tablet} suspended Protonix 40 MG eCW1 ([facility]) pantoprazole 40 MG Delayed Release Oral Tablet [Proton ix] Protonix 40 MG Protonix 40 MG 08/06/2019 12:00:00 AM EDT 1.0 {tablet} active Protonix 40 MG eCW1 ([facility]) Sucralfate 1000 MG Oral Tablet Sucralfate 1 GM Sucralfate 1 GM 08/06/2019 12:00:00 AM EDT 1.0 {tablet_on_an_empty_stomach} active Sucralfate 1 GM eCW1 ([facility]) Acetaminophen 500 MG Oral Tablet Acetaminophen 500 MG 2019 12:00:00 AM EDT 1.0 {tablet_as_needed} active A cetaminophen 500 MG eCW1 ([facility]) pantoprazole 40 MG Delayed Release Oral Tablet [Proton ix] Protonix 40 MG Protonix 40 MG 08/06/2019 12:00:00 AM EDT 1.0 {tablet} active Protonix 40 MG eCW1 ([facility]) Sucralfate 1000 MG Oral Tablet Sucralfate 1 GM Sucralfate 1 GM 08/06/2019 12:00:00 AM EDT 1.0 {tablet_on_an_empty_stomach} active Sucralfate 1 GM eCW1 ([facility]) Sucralfate 1000 MG Oral Tablet Sucralfate 1 GM Sucralfate 1 GM 08/06/2019 12:00:00 AM EDT 1.0 {tablet_on_an_empty_stomach} active Sucralfate 1 GM eCW1 ([facility]) pantoprazole 40 MG Delayed Release Oral Tablet [Proton ix] Protonix 40 MG Protonix 40 MG 08/06/2019 12:00:00 AM EDT 1.0 {tablet} active Protonix 40 MG eCW1 ([facility]) Sucralfate 1000 MG Oral Tablet Sucralfate 1 GM Sucralfate 1 GM 08/06/2019 12:00:00 AM EDT 1.0 {tablet_on_an_empty_stomach} active Sucralfate 1 GM eCW1 ([facility]) pantoprazole 40 MG Delayed Release Oral Tablet [Proton ix] Protonix 40 MG Protonix 40 MG 08/06/2019 12:00:00 AM EDT 1.0 {tablet} suspended Protonix 40 MG eCW1 ([facility]) latanoprost 0.05 MG/ML Ophthalmic Solution Latanoprost 0.005 % Latanoprost 0.005 % 08/06/2019 12:00:00 AM EDT 1.0 {drop_into_affected_eye_in_ the_evening} active Latanoprost 0.005 % eCW1 ([facility]) Insulin, Aspart, Human 100 UNT/ML Inject able Solution [NovoLog] NovoLog 100 UNIT/ML NovoLog 100 UNIT/ML 08/06/2019 12:00:00 AM EDT suspended NovoLog 100 UNIT/ML eCW1 ([facility]) Sucralfate 1000 MG Oral Tablet Sucralfate 1 GM Sucralfate 1 GM 08/06/2019 12:00:00 AM EDT 1.0 {tablet_on_an_empty_stomach} active Sucralfate 1 GM eCW1 ([facility]) Insulin, Aspart, Human 100 UNT/ML Inject able Solution [NovoLog] NovoLog 100 UNIT/ML NovoLog 100 UNIT/ML 08/06/2019 12:00:00 AM EDT active NovoLog 100 UNIT/ML eCW1 ([facility]) Sucralfate 1000 MG Oral Tablet Sucralfate 1 GM Sucralfate 1 GM 08/06/2019 12:00:00 AM EDT 1.0 {tablet_on_an_empty_stomach} active Sucralfate 1 GM eCW1 ([facility]) pantoprazole 40 MG Delayed Release Oral Tablet [Proton ix] Protonix 40 MG Protonix 40 MG 08/06/2019 12:00:00 AM EDT 1.0 {tablet} suspended Protonix 40 MG eCW1 ([facility]) pantoprazole 40 MG Delayed Release Oral Tablet [Proton ix] Protonix 40 MG Protonix 40 MG 08/06/2019 12:00:00 AM EDT 1.0 {tablet} active Protonix 40 MG eCW1 ([facility]) Prednisone 5 MG Oral Tablet PredniSONE 5 MG PredniSONE 5 MG 08/06/2019 12:00:00 AM EDT 1.0 {tablet} active PredniSONE 5 MG eCW1 ([facility]) Prednisone 5 MG Oral Tablet PredniSONE 5 MG PredniSONE 5 MG 08/06/2019 12:00:00 AM EDT 1.0 {tablet} active PredniSONE 5 MG eCW1 ([facility]) Prednisone 5 MG Oral Tablet PredniSONE 5 MG PredniSONE 5 MG 08/06/2019 12:00:00 AM EDT 1.0 {tablet} active PredniSONE 5 MG eCW1 ([facility]) pantoprazole 40 MG Delayed Release Oral Tablet [Proton ix] Protonix 40 MG Protonix 40 MG 08/06/2019 12:00:00 AM EDT active 1 tablet eCW1 ([facility]) Sucralfate 1000 MG Oral Tablet Sucralfate 1 GM Sucralfate 1 GM 08/06/2019 12:00:00 AM EDT 1.0 {tablet_on_an_empty_stomach} active Sucralfate 1 GM eCW1 ([facility]) Acetaminophen 500 MG Oral Tablet Acetaminophen 500 MG 2019 12:00:00 AM EDT 1.0 {tablet_as_needed} active A cetaminophen 500 MG eCW1 ([facility]) latanoprost 0.05 MG/ML Ophthalmic Solution Latanoprost 0.005 % Latanoprost 0.005 % 08/06/2019 12:00:00 AM EDT 1.0 {drop_into_affected_eye_in_ the_evening} active Latanoprost 0.005 % eCW1 ([facility]) Prednisone 5 MG Oral Tablet PredniSONE 5 MG PredniSONE 5 MG 08/06/2019 12:00:00 AM EDT 1.0 {tablet} active PredniSONE 5 MG eCW1 ([facility]) latanoprost 0.05 MG/ML Ophthalmic Solution Latanoprost 0.005 % Latanoprost 0.005 % 08/06/2019 12:00:00 AM EDT 1.0 {drop_into_affected_eye_in_ the_evening} active Latanoprost 0.005 % eCW1 ([facility]) latanoprost 0.05 MG/ML Ophthalmic Solution Latanoprost 0.005 % Latanoprost 0.005 % 08/06/2019 12:00:00 AM EDT 1.0 {drop_into_affected_eye_in_ the_evening} active Latanoprost 0.005 % eCW1 ([facility]) Insulin, Aspart, Human 100 UNT/ML Inject able Solution [NovoLog] NovoLog 100 UNIT/ML NovoLog 100 UNIT/ML 08/06/2019 12:00:00 AM EDT active NovoLog 100 UNIT/ML eCW1 ([facility]) Sucralfate 1000 MG Oral Tablet Sucralfate 1 GM Sucralfate 1 GM 08/06/2019 12:00:00 AM EDT 1.0 {tablet_on_an_empty_stomach} active Sucralfate 1 GM eCW1 ([facility]) latanoprost 0.05 MG/ML Ophthalmic Solution Latanoprost 0.005 % Latanoprost 0.005 % 08/06/2019 12:00:00 AM EDT 1.0 {drop_into_affected_eye_in_ the_evening} active Latanoprost 0.005 % eCW1 ([facility]) Insulin, Aspart, Human 100 UNT/ML Inject able Solution [NovoLog] NovoLog 100 UNIT/ML NovoLog 100 UNIT/ML 08/06/2019 12:00:00 AM EDT suspended NovoLog 100 UNIT/ML eCW1 ([facility]) Acetaminophen 500 MG Oral Tablet Acetaminophen 500 MG 2019 12:00:00 AM EDT 1.0 {tablet_as_needed} active A cetaminophen 500 MG eCW1 ([facility]) Acetaminophen 500 MG Oral Tablet Acetaminophen 500 MG 2019 12:00:00 AM EDT 1.0 {tablet_as_needed} active A cetaminophen 500 MG eCW1 ([facility]) Prednisone 5 MG Oral Tablet PredniSONE 5 MG PredniSONE 5 MG 08/06/2019 12:00:00 AM EDT 1.0 {tablet} active PredniSONE 5 MG eCW1 ([facility]) Acetaminophen 500 MG Oral Tablet Acetaminophen 500 MG 2019 12:00:00 AM EDT 1.0 {tablet_as_needed} active A cetaminophen 500 MG eCW1 ([facility]) Sucralfate 1000 MG Oral Tablet Sucralfate 1 GM Sucralfate 1 GM 08/06/2019 12:00:00 AM EDT 1.0 {tablet_on_an_empty_stomach} active Sucralfate 1 GM eCW1 ([facility]) Sucralfate 1000 MG Oral Tablet Sucralfate 1 GM Sucralfate 1 GM 08/06/2019 12:00:00 AM EDT 1.0 {tablet_on_an_empty_stomach} active Sucralfate 1 GM eCW1 ([facility]) Insulin, Aspart, Human 100 UNT/ML Inject able Solution [NovoLog] NovoLog 100 UNIT/ML NovoLog 100 UNIT/ML 08/06/2019 12:00:00 AM EDT suspended NovoLog 100 UNIT/ML eCW1 ([facility]) Acetaminophen 500 MG Oral Tablet Acetaminophen 500 MG 2019 12:00:00 AM EDT 1.0 {tablet_as_needed} active A cetaminophen 500 MG eCW1 ([facility]) latanoprost 0.05 MG/ML Ophthalmic Solution Latanoprost 0.005 % Latanoprost 0.005 % 08/06/2019 12:00:00 AM EDT 1.0 {drop_into_affected_eye_in_ the_evening} active Latanoprost 0.005 % eCW1 ([facility]) Insulin, Aspart, Human 100 UNT/ML Inject able Solution [NovoLog] NovoLog 100 UNIT/ML NovoLog 100 UNIT/ML 08/06/2019 12:00:00 AM EDT active NovoLog 100 UNIT/ML eCW1 ([facility]) pantoprazole 40 MG Delayed Release Oral Tablet [Proton ix] Protonix 40 MG Protonix 40 MG 08/06/2019 12:00:00 AM EDT 1.0 {tablet} active Protonix 40 MG eCW1 ([facility]) Insulin, Aspart, Human 100 UNT/ML Inject able Solution [NovoLog] NovoLog 100 UNIT/ML NovoLog 100 UNIT/ML 08/06/2019 12:00:00 AM EDT active as directed eCW1 ([facility]) latanoprost 0.05 MG/ML Ophthalmic Solution Latanoprost 0.005 % Latanoprost 0.005 % 08/06/2019 12:00:00 AM EDT 1.0 {drop_into_affected_eye_in_ the_evening} active Latanoprost 0.005 % eCW1 ([facility]) Insulin, Aspart, Human 100 UNT/ML Inject able Solution [NovoLog] NovoLog 100 UNIT/ML NovoLog 100 UNIT/ML 08/06/2019 12:00:00 AM EDT active NovoLog 100 UNIT/ML eCW1 ([facility]) latanoprost 0.05 MG/ML Ophthalmic Solution Latanoprost 0.005 % Latanoprost 0.005 % 08/06/2019 12:00:00 AM EDT 1.0 {drop_into_affected_eye_in_ the_evening} active Latanoprost 0.005 % eCW1 ([facility]) pantoprazole 40 MG Delayed Release Oral Tablet [Proton ix] Protonix 40 MG Protonix 40 MG 08/06/2019 12:00:00 AM EDT 1.0 {tablet} active Protonix 40 MG eCW1 ([facility]) Prednisone 5 MG Oral Tablet PredniSONE 5 MG PredniSONE 5 MG 08/06/2019 12:00:00 AM EDT 1.0 {tablet} active PredniSONE 5 MG eCW1 ([facility]) Sucralfate 1000 MG Oral Tablet Sucralfate 1 GM Sucralfate 1 GM 08/06/2019 12:00:00 AM EDT 1.0 {tablet_on_an_empty_stomach} active Sucralfate 1 GM eCW1 ([facility]) latanoprost 0.05 MG/ML Ophthalmic Solution Latanoprost 0.005 % Latanoprost 0.005 % 08/06/2019 12:00:00 AM EDT 1.0 {drop_into_affected_eye_in_ the_evening} active Latanoprost 0.005 % eCW1 ([facility]) Insulin, Aspart, Human 100 UNT/ML Inject able Solution [NovoLog] NovoLog 100 UNIT/ML NovoLog 100 UNIT/ML 08/06/2019 12:00:00 AM EDT suspended NovoLog 100 UNIT/ML eCW1 ([facility]) Sucralfate 1000 MG Oral Tablet Sucralfate 1 GM Sucralfate 1 GM 08/06/2019 12:00:00 AM EDT 1.0 {tablet_on_an_empty_stomach} active Sucralfate 1 GM eCW1 ([facility]) pantoprazole 40 MG Delayed Release Oral Tablet [Proton ix] Protonix 40 MG Protonix 40 MG 08/06/2019 12:00:00 AM EDT 1.0 {tablet} suspended Protonix 40 MG eCW1 ([facility]) Prednisone 5 MG Oral Tablet PredniSONE 5 MG PredniSONE 5 MG 08/06/2019 12:00:00 AM EDT 1.0 {tablet} active PredniSONE 5 MG eCW1 ([facility]) Citalopram 40 MG Oral Tablet [Celexa] Celexa 40 MG Celexa 40 MG 04/17/2019 12:00:00 AM EST active 1 tab e CW1 ([facility]) Citalopram 40 MG Oral Tablet [Celexa] Celexa 40 MG Celexa 40 MG 04/17/2019 12:00:00 AM EST active Celexa 4 0 MG eCW1 ([facility]) Citalopram 40 MG Oral Tablet [Celexa] Celexa 40 MG Celexa 40 MG 04/17/2019 12:00:00 AM EST active Celexa 4 0 MG eCW1 ([facility]) Celexa 40 MG UNK 04/17/2019 12:00:00 AM EST activ e 1 tab eCW1 ([facility]) Citalopram 40 MG Oral Tablet [Celexa] Celexa 40 MG Celexa 40 MG 04/17/2019 12:00:00 AM EST active Celexa 4 0 MG eCW1 ([facility]) Citalopram 40 MG Oral Tablet [Celexa] Celexa 40 MG Celexa 40 MG 04/17/2019 12:00:00 AM EST active Celexa 4 0 MG eCW1 ([facility]) Citalopram 40 MG Oral Tablet [Celexa] Celexa 40 MG Celexa 40 MG 04/17/2019 12:00:00 AM EST active 1 tab e CW1 ([facility]) Citalopram 40 MG Oral Tablet [Celexa] Celexa 40 MG Celexa 40 MG 04/17/2019 12:00:00 AM EST active 1 tab e CW1 ([facility]) Citalopram 40 MG Oral Tablet [Celexa] Celexa 40 MG Celexa 40 MG 04/17/2019 12:00:00 AM EST active Celexa 4 0 MG eCW1 ([facility]) Citalopram 40 MG Oral Tablet [Celexa] Celexa 40 MG Celexa 40 MG 04/17/2019 12:00:00 AM EST active Celexa 4 0 MG eCW1 ([facility]) Citalopram 40 MG Oral Tablet [Celexa] Celexa 40 MG Celexa 40 MG 04/17/2019 12:00:00 AM EST active Celexa 4 0 MG eCW1 ([facility]) Citalopram 40 MG Oral Tablet [Celexa] Celexa 40 MG Celexa 40 MG 04/17/2019 12:00:00 AM EST active Celexa 4 0 MG eCW1 ([facility]) Citalopram 40 MG Oral Tablet [Celexa] Celexa 40 MG Celexa 40 MG 04/17/2019 12:00:00 AM EST active Celexa 4 0 MG eCW1 ([facility]) Citalopram 40 MG Oral Tablet [Celexa] Celexa 40 MG Celexa 40 MG 04/17/2019 12:00:00 AM EST active Celexa 4 0 MG eCW1 ([facility]) Citalopram 40 MG Oral Tablet [Celexa] Celexa 40 MG Celexa 40 MG 04/17/2019 12:00:00 AM EST active Celexa 4 0 MG eCW1 ([facility]) Citalopram 40 MG Oral Tablet [Celexa] Celexa 40 MG Celexa 40 MG 04/17/2019 12:00:00 AM EST active Celexa 4 0 MG eCW1 ([facility]) Citalopram 40 MG Oral Tablet [Celexa] Celexa 40 MG Celexa 40 MG 04/17/2019 12:00:00 AM EST active Celexa 4 0 MG eCW1 ([facility]) Citalopram 40 MG Oral Tablet [Celexa] Celexa 40 MG Celexa 40 MG 04/17/2019 12:00:00 AM EST active Celexa 4 0 MG eCW1 ([facility]) Citalopram 40 MG Oral Tablet [Celexa] Celexa 40 MG Celexa 40 MG 04/17/2019 12:00:00 AM EST active Celexa 4 0 MG eCW1 ([facility]) Citalopram 40 MG Oral Tablet [Celexa] Celexa 40 MG Celexa 40 MG 04/17/2019 12:00:00 AM EST active 1 tab e CW1 ([facility]) Citalopram 40 MG Oral Tablet [Celexa] Celexa 40 MG Celexa 40 MG 04/17/2019 12:00:00 AM EST active Celexa 4 0 MG eCW1 ([facility]) Citalopram 40 MG Oral Tablet [Celexa] Celexa 40 MG Celexa 40 MG 04/17/2019 12:00:00 AM EST active Celexa 4 0 MG eCW1 ([facility]) Citalopram 40 MG Oral Tablet [Celexa] Celexa 40 MG Celexa 40 MG 04/17/2019 12:00:00 AM EST active Celexa 4 0 MG eCW1 ([facility]) Citalopram 40 MG Oral Tablet [Celexa] Celexa 40 MG Celexa 40 MG 04/17/2019 12:00:00 AM EST active Celexa 4 0 MG eCW1 ([facility]) Citalopram 40 MG Oral Tablet [Celexa] Celexa 40 MG Celexa 40 MG 04/17/2019 12:00:00 AM EST active Celexa 4 0 MG eCW1 ([facility]) Citalopram 40 MG Oral Tablet [Celexa] Celexa 40 MG Celexa 40 MG 04/17/2019 12:00:00 AM EST active Celexa 4 0 MG eCW1 ([facility]) Citalopram 40 MG Oral Tablet [Celexa] Celexa 40 MG Celexa 40 MG 04/17/2019 12:00:00 AM EST active Celexa 4 0 MG eCW1 ([facility]) Citalopram 40 MG Oral Tablet [Celexa] Celexa 40 MG Celexa 40 MG 04/17/2019 12:00:00 AM EST active Celexa 4 0 MG eCW1 ([facility]) Citalopram 40 MG Oral Tablet [Celexa] Celexa 40 MG Celexa 40 MG 04/17/2019 12:00:00 AM EST active Celexa 4 0 MG eCW1 ([facility]) Citalopram 40 MG Oral Tablet [Celexa] Celexa 40 MG Celexa 40 MG 04/17/2019 12:00:00 AM EST active Celexa 4 0 MG eCW1 ([facility]) Insurance Providers Payer name Policy type / Coverage type Policy ID Covered green party ID Covered green party's relationship to laboy Policy [place] Plan Information MEDICARE COMPLETE [id number] SP [id number] EMEDNY [id number] SP [id number] [facility] MEDICARE [id number] S [id number] MEDICAID [id number] S [id number] MEDICARE COMPLETE [id number] SP [id number] MEDICARE [id number] SP [id number] MEDICARE COMPLETE[facility] O [id number] S [id number] MEDICAID M [id number] S [id number] [facility] MEDICARE [id number] S [id number] [facility] [id number] SP [id number] [facility] [id number] SP [id number] MEDICARE [id number] SP [id number] [facility] [id number] SP [id number] EMEDNY [id number] SP [id number] MEDICARE [id number] SP [id number] A MEDICARE COMPLETE [id number] SP [id number] MEDICARE COMPLETE [id number] SP [id number] WELLCARE [id number] SP [id number] WELLCARE [id number] SP [id number] WELLCARE O [id number] S [id number] WELLCARE [id number] S [id number] WELLCARE O [id number] S [id number] MEDICARE [id number] SP [id number] H38 MEDICAID [id number] SP [id number] MEDICARE C [id number] S [id number] [id number] MEDICAID [id number] SP [id number] WELLCARE [id number] S [id number] H38 MEDICARE [id number] S [id number] WELLCARE [id number] S [id number] MEDICARE -RECURRING [id number] 18 [id number] MEDICAID -RECURRING [id number] ANSI-Medicaid [id number] ANSI-Medicare Part B [id number] ANSI-Medicaid [id number] ANSI-Medicare Part B [id number] ANSI-Medicare Part B [id number] ANSI-Medicaid [id number] ANSI-Medicare Part B [id number] ANSI-Medicaid [id number] ANSI-Medicaid [id number] ANSI-Medicare Part B [id number] ANSI-Medicaid [id number] ANSI-Medicare Part B [id number] ANSI-Medicaid [id number] ANSI-Medicare Part B [id number] ANSI-Medicaid [id number] ANSI-Medicare Part B [id number] ANSI-Medicare Part B [id number] ANSI-Medicaid [id number] ANSI-Medicare Part B [id number] ANSI-Medicaid [id number] ANSI-Medicare Part B [id number] ANSI-Medicaid [id number] ANSI-Medicare Part B [id number] ANSI-Medicaid [id number] ANSI-Medicaid [id number] ANSI-Medicare Part B [id number] ANSI-Medicare Part B [id number] ANSI-Medicaid [id number] MEDICARE -RECURRING [id number] 18 [id number] ANSI-Medicaid [id number] ANSI-Medicare Part B [id number] ANSI-Medicaid [id number] ANSI-Medicare Part B [id number] ANSI-Medicare Part B [id number] ANSI-Medicaid [id number] [place] Part [place] [id number] Self [id number] Medicare [place] Medicare Primary [id number] Self [id number] ANSI-Medicare Part B [id number] ANSI-Medicaid [id number] ANSI-Medicaid [id number] ANSI-Medicare Part B [id number] ANSI-Medicaid [id number] ANSI-Medicare Part B [id number] ANSI-Medicare Part B [id number] ANSI-Medicaid [id number] ANSI-Medicare Part B [id number] ANSI-Medicaid [id number] MEDICARE [id number] ANSI-Medicare Part B [id number] ANSI-Medicaid [id number] ANSI-Medicaid [id number] ANSI-Medicare Part B [id number] ANSI-Medicare Part B [id number] ANSI-Medicaid [id number] ANSI-Medicaid [id number] ANSI-Medicare Part B [id number] ANSI-Medicaid [id number] ANSI-Medicare Part B [id number] ANSI-Medicare Part B [id number] ANSI-Medicaid [id number] ANSI-Medicaid [id number] ANSI-Medicare Part B [id number] ANSI-Medicaid [id number] ANSI-Medicare Part B [id number] ANSI-Medicaid [id number] ANSI-Medicare Part B [id number] ANSI-Medicaid [id number] ANSI-Medicare Part B [id number] ANSI-Medicaid [id number] ANSI-Medicare Part B [id number] ANSI-Medicare Part B [id number] ANSI-Medicaid [id number] MEDICARE [id number] SP [id number] ANSI-Medicare Part B [id number] ANSI-Medicaid [id number] [employer] RHONDA [id number] SELF [id number] MEDICARE [id number] SELF [id number] A MEDICARE PART A [id number] Patient [id number] [employer] G[employer]RI[employer] RHONDA UNAVAILABLE SELF UNAVAILABLE PERSONAL PAY UNAVAILABLE SELF UNAVA ILABLE MEDICARE C [id number] S [id number] A [place] MEDICARE PART B C [id number] S [id number] MEDICAID [id number] SP [id number] [place] Med[place] [id number] Self [id number] Medicare Up[place] Medicare Primary [id number] Self [id number] [facility] C [id number] S [id number] [place] Med[place] Part [place] [id number] Self [id number] Medicare [place] Medicare Primary [id number] Self [id number] [place] Medig[place] Part [place] [id number] Self [id number] Medicare [place] Medicare Primary [id number] Self [id number] MEDICAID [id number] SP [id number] MEDICAID [id number] SP [id number] MEDICAID M [id number] Self [id number] MEDICARE A [id number] Self [id number] MEDICAID -O/P [id number] 18 [id number] MEDICARE -O/P [id number] 18 [id number] OTHER WORKERS COMPENSATION [id number] SP [id number] MEDICAID -CLINIC [id number] MEDICARE -CLINIC [id number] 18 13 [id number] WORKMANS COMPENSATION -O/ [id number] 18 [id number] MEDICAID -PHYSICIAN [id number] WORKMANS COMPENSATION -O/P [id number] 18 [id number] MEDICARE -PHYSICIAN [id number] 18 [id number] Problems, Conditions, and Diagnoses Code Display Name Description Problem Type Effective Dates Data Source(s) S88.111A [id number] Below-knee amputation of right lower extr emity Problem 04/06/2020 12:00:00 AM EST eCW1 ([facility]) Z89.512 [id number] 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 Problem 03/11/2020 12:00:00 AM EST eCW1 ([facility]) Z89.511 [id number] Acquired absence of right leg below knee Problem 03/11/2020 12:00:00 AM EST eCW1 ([facility]) S88.119A [id number] Amputation below knee Problem 02/24/2020 12: 00:00 AM EST eCW1 ([facility]) M86.9 [id number] Osteomyelitis of right foot, unspecif ied type Problem 02/19/2020 12:00:00 AM EST eCW1 ([facility]) [id number] O/E - Amputated left below knee O/E - Amputated left below knee Problem 01/26/2020 12:00:00 AM EDT [facility] ([facility] 43504605 Pain in limb Pain in limb Problem 01/26/2020 12:00:00 A M EDT [facility] ([facility] [id number] Gangrenous disorder Gangrenous disorder Problem 1 12:00:00 AM EDT [facility] ([facility] [id number] Pressure ulcer of right foot stage 4 Pre ssure ulcer of right foot stage 4 Problem 01/26/2020 12:00:00 AM EDT [facility] ([facility] 701823676 Type 2 diabetes mellitus with ulcer Type 2 diabetes mellitus with ulcer Problem 01/26/2020 12:00:00 AM EDT [facility] ([facility] L97.514 702348662 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 Problem 12/31/2019 12:00:00 AM EDT eCW1 ([facility]) E11.621 745796845 Type 2 diabetes mellitus with foot ulcer Problem 12/31/2019 12:00:00 AM EDT eCW1 ([facility]) E10.69 39266954 Type 1 diabetes mellitus with ot her specified complication Problem 10/17/2019 12:00:00 AM EDT eCW1 ([facility]) L97.519 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 Non-pressure chronic ulcer of other part of right foot with unspecified severity Problem 09/18/2019 12:00:00 AM EDT eCW1 ([facility]) E10.621 Foot ulcer due to type 1 diabetes [facility] Type 1 diabetes mellitus with foot ulcer Problem 09/18/2019 12:00:00 AM EDT eCW1 ([facility]) Z79.4 halfway (current) use of insulin USP (CU RRENT) USE OF INSULIN Diagnosis 03/02/2020 02:32:00 PM [facility] Z96.41 Presence of insulin pump (external) (int ernal) PRESENCE OF INSULIN PUMP (EXTERNAL) (INTERNAL) Diagnosis 03/02/2020 02:32:00 PM [facility] E10.65 Type 1 diabetes mellitus with hyperglyce sera TYPE 1 DIABETES MELLITUS WITH HYPERGLYCEMIA Diagnosis 03/02/2020 02:32:00 PM [facility] E27.40 Unspecified adrenocortical insufficiency UNSPECIFIED ADRENOCORTICAL INSUFFICIENCY Diagnosis 04/24/2019 03:04:00 PM [facility] Surgeries/Procedures Procedure Description Date Indications Data Source(s) Amputation Below Knee 03/03/2020 12:00:00 AM [facility] ([facility], ) [facility] outpatient clinic visit for assessment and ma nagement of a patient Hospital Outpatient Clinic Visit 03/02/2020 12:00:00 AM [facility] COLLECTION VENOUS BLOOD VENIPUNCTURE ROUTINE VENIPUNCTURE 12:00:00 AM [facility] HEMOGLOBIN GLYCOSYLATED A1C GLYCOSYLATED HEMOGLOBIN TEST 04/2019 12:00:00 AM [facility] FINE NEEDLE ASPIRATION W/O IMAGING GUIDANCE 02/23/2020 12:00:00 AM EST eCW1 ([facility]) Amputation Metatarsal W/Toe 01/28/2020 12:00:00 AM EDT [facility] FINE NEEDLE ASPIRATION W/O IMAGING GUIDANCE 01/19/2020 12:00:00 AM EDT eC ([facility]) FINE NEEDLE ASPIRATION W/O IMAGING GUIDANCE 01/09/2020 12:00:00 AM EDT eCW ([facility]) Revascularization,Endovascular,Transluminal Angioplasty 12/31/2019 12:00:00 AM EDT [facility] REVSC OPN/PRQ TIB/FABIENNE W/ANGIOPLASTY UNI 12/31/2019 12 :00:00 AM EDT [facility] ([facility], ) REVSC OPN/PRQ TIB/FABIENNE W/ANGIOPLASTY UNI EA VSL 2019 12:00:00 AM EDT [facility] ([facility], ) Moderate Sedation Services; Same Phys Intl 15 Mins; PT >= 5 Years 12/31/2019 12:00:00 AM EDT [facility] ([facility] Angiography Internal Corotid Of The Ipsil Intrac Circulation 10/08/2019 12:00:00 AM EDT [facility] ([facility], ) Each Intracranial Branch Of The Internal Corotid/Vertebral 10/08/2019 12:00:00 AM EDT [facility] ([facility]) REVSC OPN/PRQ TIB/FABIENNE W/ANGIOPLASTY UNI EA VSL 2019 12:00:00 AM EDT [facility] ([facility]) REVSC OPN/PRQ TIB/FABIENNE W/ANGIOPLASTY UNI EA VSL 2019 12:00:00 AM EDT [facility] ([facility]) Moderate Sedation Services; Same Phys Intl 15 Mins; PT >= 5 Years 10/08/2019 12:00:00 AM EDT [facility] ([facility]) Endoscopy Upper GI Biopsy 09/17/2019 12:00:00 AM EDT [facility] ([facility]) Office Visit, Est Pt., Level 2 FC 08/14/2019 12:00:00 AM EDT eCW1 ([facility]) TRANS CARE MGMT 7 DAY DISCH 08/14/2019 12:00:00 AM EDT eCW1 ([facility]) Transitional Care NO CHARGE Visit 08/07/2019 12:00:00 AM EDT eCW1 ([facility]) DSTRJ LESION ANUS EXTENSIVE 06/06/2019 12:00:00 AM EST eCW1 ([facility]) GLUC BLD GLUC MNTR DEV CLEARED FDA SPEC HOME USE GLUCOSE BLO OD TEST 04/24/2019 12:00:00 AM [facility] BASIC METABOLIC PANEL CALCIUM TOTAL METABOLIC PANEL TOTAL CA 04/24/2019 12:00:00 AM [facility] Results ID Date Data Source [id number] 03/16/2020 05:11:00 AM [facility] Name Value Range Interpretation Code Description Data Mireille rce(s) Supporting Document(s) Hemoglobin A1C % Less than 5.7% Above high normal [facility] HBA1C: Normal: Less than 5.7% Prediabetes: 5.7% to 6.4% Diabetes: 6.5% or higher HA1C % vs Estimated Average Glucose (eAG) % eAG % eAG 6% 126 mg/dL 10% 240 mg/dL 7% 154 mg/dL 11% 269 mg/dL 8% 183 mg/dL 12% 298 mg/dL 9% 212 mg/dL Reference: [place] [employer], 2017 ID Date Data Source [id number] 02/28/2020 11:00:00 AM EST [facility] Name Value Range Interpretation Code Description Data Mireille rce(s) Supporting Document(s) SARS coronavirus 2 RNA [facility] This lab was ordered by [facility] and reported by [facility]. ID Date Data Source [id number] 01/28/2020 04:53:00 PM EDT [facility] ([facility] Name Value Range Interpretation Code Description Data Mireille rce(s) Supporting Document(s) Glucose [Mass/volume] in Capillary blood by Glucometer 154 mg/dL 80-115 Above high normal [facility] ([facility] ID Date Data Source [id number] 01/28/2020 04:09:00 PM EDT [facility] ([facility] Name Value Range Interpretation Code Description Data Mireille rce(s) Supporting Document(s) Surgical pathology study Laboratory test result [facility] ([facility] FINAL DIAGNOSIS Right hallux, 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 Margin appears viable. 01/30/2020956 CLINICAL DIAGNOSIS Right hallux gangrene 01/29/20201303 GROSS DIAGNOSIS Received in formalin labeled "right hallux" and consists of a fragment of hallux 2.5 x 1 x 1 cm. An area of gangrenous changes is noted. Potato Loader sections are submitted in two after decalcification. -OA 01/29/2020 - 1303 Signed SALINA SAUNDERS MD 01/30/2020956 ID Date Data Source [id number] 01/28/2020 11:26:00 AM EDT [facility] ([facility] Name Value Range Interpretation Code Description Data Mireille rce(s) Supporting Document(s) Glucose [Mass/volume] in Capillary blood by Glucometer 91 mg/dL 80- 115 [facility] ([facility] ID Date Data Source [id number] 12/31/2019 11:17:00 AM EDT [facility] ([facility]) Name Value Range Interpretation Code Description Data Mireille rce(s) Supporting Document(s) Glucose [Mass/volume] in Capillary blood by Glucometer 142 mg/dL 80-115 Above high normal [facility] ([facility]) ID Date Data Source [id number] 12/31/2019 08:51:00 AM EDT [facility] ([facility]) Name Value Range Interpretation Code Description Data Mireille rce(s) Supporting Document(s) Glucose [Mass/volume] in Capillary blood by Glucometer 131 mg/dL 80-115 Above high normal [facility] ([facility]) ID Date Data Source [id number] 12/17/2019 10:05:00 AM EDT [facility] ([facility]) Name Value Range Interpretation Code Description Data Mireille rce(s) Supporting Document(s) Glucose, Fasting 158 mg/dL 70-100 Above high [facility] Blood Urea Nitrogen 15 mg/dL 7-18 Normal (applies to non-nume nelson results) [facility] ([facility]) Creatinine For GFR 1.36 mg/dL 0.70-1.30 Above high normal [facility] ([facility]) Glomerular Filtration Rate 56.9 Normal (applies to n on-numeric results) [facility] ([facility]) <content>Units are mL/min/1.73 m2</content>
<content></content>
<content>Chronic Kidney Disease Staging per NKF:</content>
<content></content>
<content>Stage I & II GFR >=60 Normal to Mildly Decreased</content>
<content>Stage III GFR 30- 59 Moderately Decreased</content>
<content>Stage IV GFR 15-29 Severely Decreased</content>
<content>Stage V GFR <15 Very Little GFR Left</content>
<content>ESRD GFR <15 on MEN'S GARMENT FITTER</content>
<content></content> Chloride Level 105 meq/L 98-107 Normal (applies to non-numeric r esults) [facility] ([facility]) Potassium Serum 4.6 meq/L 3.5-5.1 Normal (applies to non-numeric results) [facility]) Sodium Level 139 meq/L 136-145 Normal (applies to non-numeric res ults) [facility]) Calcium Level 9.3 mg/dL 8.8-10.2 Normal (applies to non-numeric re sults) [facility]) Anion Gap 7 meq/L 8-16 Below low normal [facility] ( [facility]) Carbon Dioxide Level 27 meq/L 21-32 Normal (applies to non-num gage results) [facility]) ID Date Data Source [id number] 12/17/2019 10:05:00 AM EDT [facility] ([facility]) Name Value Range Interpretation Code Description Data Mireille rce(s) Supporting Document(s) White Blood Count 6.8 10 4.0-10.0 Normal (applies to non-numeri c results) [facility] ([facility]) Red Blood Count 3.47 10 4.30-6.10 Below low normal [facility] ([facility]) Hemoglobin 11.2 g/dL 13.5-17.5 Below low normal [facility] ( [facility]) Hematocrit 32.8 % 42.0-52.0 Below low normal [facility] ( [facility]) Mean Corpuscular Volume 94.5 fl 80.0-96.0 Normal ( applies to non-numeric results) [facility]) Mean Corpuscular Hemoglobin 32.3 pg 27.0-33.0 Norm al (applies to non-numeric results) [facility] ([facility] ) Mean Corpuscular HGB Conc 34.1 g/dL 32.0-36.5 Normal (applies to non-numeric results) [facility] ([facility]) Red Cell Distribution Width 12.1 % 11.5-14.5 Norm al (applies to non-numeric results) [facility]) Nucleated Red Blood Cell % 0.0 % 0-0 Normal (applies to n on-numeric results) [facility] ([facility]) Platelet Count, Automated 214 10 150-450 Normal (applies to non-numeric results) [facility]) ID Date Data Source [id number] 12/01/2019 06:43:00 PM EDT [facility] Name Value Range Interpretation Code Description Data Mireille rce(s) Supporting Document(s) Triglycerides 101 mg/dL 0-150 Normal (applies to non-numeric re sults) [facility] Cholesterol 163 mg/dL 0-200 Normal (applies to non-numeric resu lts) [facility] LDL Cholesterol,Direct 77 mg/dL <100 Normal (applies to non-n umeric results) [facility] LDL Interpretative Data Optimal <100 (mg/dL) Near optimal 100-129 (mg/dL) Borderline High 130-159 (mg/dL) High 160-189 (mg/dL) Very High >190 (mg/dL) HDL Cholesterol 73 mg/dL 40-60 Above high normal [facility] CHOL/HDL Ratio Normal (applies to non-numeric r esults) [facility] NATIONAL CHOLESTEROL GUIDEL LIZ NATIONAL HEART, LUNG [...] Average 13.5 11.0 ID Date Data Source [id number] 12/01/2019 06:43:00 PM EDT [facility] Name Value Range Interpretation Code Description Data Mireille rce(s) Supporting Document(s) Sodium 138 mmol/L 137-145 Normal (applies to non-numeric resul ts) [facility] Potassium 3.5-5.1 Normal (applies to non-numeric resul ts) [facility] Chloride 105 mmol/L 98-112 Normal (applies to non-numeric resul ts) [facility] Carbon Dioxide CO2 22.0-33.0 Normal (applies to non-numer ic results) [facility] Anion Gap 4.0-11.0 Normal (applies to non-numeric resul ts) [facility] BUN 16 mg/dL 9-20 Normal (applies to non-numeric resul ts) [facility] Creatinine 0.80-1.50 Normal (applies to non-numeric resul ts) [facility] GFR 48 mL/min >60 Below low normal [facility] Result based on MDRD formula. Glucose Level 66 mg/dL 74-99 Below low normal [facility] The reference range is only applicable w hen fasting. Calcium-Uncorrected 8.4-10.2 Normal (applies to non-nume nelson results) [facility] Corrected Calcium 8.4-10.2 Normal (applies to non-numeri c results) [facility] ID Date Data Source [id number] 12/01/2019 06:43:00 PM EDT [facility] Name Value Range Interpretation Code Description Data Mireille rce(s) Supporting Document(s) Thyroid Stimulate Hormone TSH 0.358-3.740 No rmal (applies to non-numeric results) [facility] ID Date Data Source [id number] 12/01/2019 06:40:00 PM EDT [facility] Name Value Range Interpretation Code Description Data Mireille rce(s) Supporting Document(s) Creatinine,Urine Normal (applies to non-numeric results) [facility] Interpret with care as there is no estab lished reference range associated with this assay's methodology that pertains to this particular sex and/or age. Microalbumin,Urine <1.7 Normal (applies to non-numer ic results) [facility] Albumin/Creatinine Ratio,Urine Normal (applies to non-numeric results) [facility] Reference Ranges for Microalbumin,spot: Normal <30 ug/mg creatinine Microalbuminuria 30-300 ug/mg creatinine Clinical Albuminuria >300 ug/mg creatinine ID Date Data Source [id number] 12/01/2019 06:23:00 PM EDT [facility] Name Value Range Interpretation Code Description Data Mireille rce(s) Supporting Document(s) Hemoglobin A1C % Less than 5.7% Above high normal [facility] HBA1C: Normal: Less than 5.7% Prediabetes: 5.7% to 6.4% Diabetes: 6.5% or higher HA1C % vs Estimated Average Glucose (eAG) % eAG % eAG 6% 126 mg/dL 10% 240 mg/dL 7% 154 mg/dL 11% 269 mg/dL 8% 183 mg/dL 12% 298 mg/dL 9% 212 mg/dL Reference: [place] Diabetes [employer], 2017 ID Date Data Source [id number] 10/08/2019 12:37:00 PM EDT [facility] ([facility]) Name Value Range Interpretation Code Description Data Mireille rce(s) Supporting Document(s) Glucose [Mass/volume] in Capillary blood by Glucometer 190 mg/dL 80-115 Above high normal [facility] ([facility]) ID Date Data Source [id number] 10/08/2019 09:46:00 AM EDT [facility] ([facility]) Name Value Range Interpretation Code Description Data Mireille rce(s) Supporting Document(s) Glucose [Mass/volume] in Capillary blood by Glucometer 208 mg/dL 80-115 Above high normal [facility] ([facility]) ID Date Data Source [id number] 10/08/2019 08:33:00 AM EDT [facility] ([facility]) Name Value Range Interpretation Code Description Data Mireille rce(s) Supporting Document(s) Glucose, Fasting 60 mg/dL 70-100 Below low normal [facility] ([facility]) Glomerular Filtration Rate 48.9 Below low normal [facility] ([facility]) <content>Units are mL/min/1.73 m2</content>
<content></content>
<content>Chronic Kidney Disease Staging per NKF:</content>
<content></content>
<content>Stage I & II GFR >=60 Normal to Mildly Decreased</content>
<content>Stage III GFR 30- 59 Moderately Decreased</content>
<content>Stage IV GFR 15-29 Severely Decreased</content>
<content>Stage V GFR <15 Very Little GFR Left</content>
<content>ESRD GFR <15 on MEN'S GARMENT FITTER</content>
<content></content> Creatinine For GFR 1.55 mg/dL 0.70-1.30 Above high normal [facility] ([facility]) Blood Urea Nitrogen 18 mg/dL 7-18 Normal (applies to non-nume nelson results) [facility] ([facility]) Potassium Serum 4.3 meq/L 3.5-5.1 Normal (applies to non-numeric results) [facility] ([facility]) Chloride Level 107 meq/L 98-107 Normal (applies to non-numeric r esults) [facility] ([facility]) Sodium Level 141 meq/L 136-145 Normal (applies to non-numeric res ults) [facility] ([facility]) Carbon Dioxide Level 26 meq/L 21-32 Normal (applies to non-num gage results) [facility] ([facility]) Anion Gap 8 meq/L 8-16 Normal (applies to non-numeric resul ts) [facility] ([facility]) Calcium Level 9.3 mg/dL 8.8-10.2 Normal (applies to non-numeric re sults) [facility] ([facility]) ID Date Data Source [id number] 10/08/2019 08:33:00 AM EDT [facility] ([facility]) Name Value Range Interpretation Code Description Data Mireille rce(s) Supporting Document(s) White Blood Count 7.1 10 4.0-10.0 Normal (applies to non-numeri c results) [facility] ([facility]) Red Blood Count 3.97 10 4.30-6.10 Below low normal [facility] ([facility]) Hemoglobin 12.6 g/dL 13.5-17.5 Below low normal [facility] ( [facility]) Mean Corpuscular Volume 97.0 fl 80.0-96.0 Above high normal [facility] ([facility]) Hematocrit 38.5 % 42.0-52.0 Below low normal [facility] ( [facility]) Mean Corpuscular HGB Conc 32.7 g/dL 32.0-36.5 Normal (applies to non-numeric results) [facility] ([facility]) Red Cell Distribution Width 12.1 % 11.5-14.5 Norm al (applies to non-numeric results) [facility] ([facility]) Mean Corpuscular Hemoglobin 31.7 pg 27.0-33.0 Norm al (applies to non-numeric results) [facility] ([facility]) Platelet Count, Automated 206 10 150-450 Normal (applies to non-numeric results) [facility]) Nucleated Red Blood Cell % 0.0 % 0-0 Normal (applies to n on-numeric results) [facility]) ID Date Data Source [id number] 09/17/2019 11:28:00 AM EDT [facility] ([facility]) Name Value Range Interpretation Code Description Data Mireille rce(s) Supporting Document(s) Surgical pathology study Laboratory test result [facility]) FINAL DIAGNOSIS A - Duodenal bulb, [...] 1615 Signed SALINA SAUNDERS MD 09/18/2019 1420 ID Date Data Source [id number] 09/14/2019 10:40:00 AM EDT [facility] Name Value Range Interpretation Code Description Data Mireille rce(s) Supporting Document(s) SARS CORONAVIRUS 2 RNA [facility] This lab was ordered by [facility] and reported by [facility]. ID Date Data Source [id number] 04/24/2019 06:44:00 PM EST [facility] Name Value Range Interpretation Code Description Data Mireille rce(s) Supporting Document(s) Sodium 140 mmol/L 137-145 Normal (applies to non-numeric resul ts) [facility] Potassium 3.5-5.1 Normal (applies to non-numeric resul ts) [facility] Chloride 105 mmol/L 98-112 Normal (applies to non-numeric resul ts) [facility] Carbon Dioxide CO2 22.0-33.0 Normal (applies to non-numer ic results) [facility] Anion Gap 4.0-11.0 Normal (applies to non-numeric resul ts) [facility] BUN 14 mg/dL 9-20 Normal (applies to non-numeric resul ts) [facility] Creatinine 0.80-1.50 Normal (applies to non-numeric resul ts) [facility] GFR 52 mL/min >60 Below low normal [facility] Result based on MDRD formula. Glucose Level 67 mg/dL 74-99 Below low normal [facility] The reference range is only applicable w hen fasting. Calcium-Uncorrected 8.4-10.2 Normal (applies to non-nume nelson results) [facility] Corrected Calcium 8.4-10.2 Normal (applies to non-numeri c results) [facility] ID Date Data Source [id number] 04/24/2019 06:41:00 PM EST [facility] Name Value Range Interpretation Code Description Data Mireille rce(s) Supporting Document(s) Hemoglobin A1C % Less than 5.7% Above high normal [facility] HBA1C: Normal: Less than 5.7% Prediabetes: 5.7% to 6.4% Diabetes: 6.5% or higher HA1C % vs Estimated Average Glucose (eAG) % eAG % eAG 6% 126 mg/dL 10% 240 mg/dL 7% 154 mg/dL 11% 269 mg/dL 8% 183 mg/dL 12% 298 mg/dL 9% 212 mg/dL Reference: [place] Diabetes Association, 2017 Procedure Social History Code Duration Value Status Description Data Source(s ) Smoking 04/06/2020 12:00:00 AM EST Former Smoker completed Former Smoker eCW1 ([facility]) Smoking 04/05/2020 12:00:00 AM EST Non Smoker completed Non Smoke r MEDENT ([facility], ) Smoking 02/25/2020 12:00:00 AM EST Former Smoker completed Former Smoker eCW1 ([facility]) Smoking 02/25/2020 12:00:00 AM EST Former Smoker completed Former Smoker eCW1 ([facility]) Smoking 02/25/2020 12:00:00 AM EST Former Smoker completed Former Smoker eCW1 ([facility]) Smoking 02/25/2020 12:00:00 AM EST Former Smoker completed Former Smoker eCW1 ([facility]) Smoking 02/25/2020 12:00:00 AM EST Former Smoker completed Former Smoker eCW1 ([facility]) Smoking 02/25/2020 12:00:00 AM EST Former Smoker completed Former Smoker eCW1 ([facility]) Smoking 02/25/2020 12:00:00 AM EST Former Smoker completed Former Smoker eCW1 ([facility]) Smoking 02/24/2020 12:00:00 AM EST Former Smoker completed Former Smoker eCW1 ([facility]) Smoking 02/19/2020 12:00:00 AM EST Former Smoker completed Former Smoker eCW1 ([facility]) Smoking 02/19/2020 12:00:00 AM EST Former Smoker completed Former Smoker eCW1 ([facility]) Smoking 02/19/2020 12:00:00 AM EST Former Smoker completed Former Smoker eCW1 ([facility]) Smoking 02/09/2020 12:00:00 AM EST Former Smoker completed Former Smoker eCW1 ([facility]) Smoking 02/09/2020 12:00:00 AM EST Former Smoker completed Former Smoker eCW1 ([facility]) Smoking 01/19/2020 12:00:00 AM EDT Former Smoker completed Former Smoker eCW1 ([facility]) Smoking 01/19/2020 12:00:00 AM EDT Former Smoker completed Former Smoker eCW1 ([facility]) Smoking 01/19/2020 12:00:00 AM EDT Former Smoker completed Former Smoker eCW1 ([facility]) Smoking 09/18/2019 12:00:00 AM EDT Former Smoker completed Former Smoker eCW1 ([facility]) Smoking 09/18/2019 12:00:00 AM EDT Former Smoker completed Former Smoker eCW1 ([facility]) Smoking 09/18/2019 12:00:00 AM EDT Former Smoker completed Former Smoker eCW1 ([facility]) Smoking 09/18/2019 12:00:00 AM EDT Former Smoker completed Former Smoker eCW1 ([facility]) Smoking 08/14/2019 12:00:00 AM EDT Former Smoker completed Former Smoker eCW1 ([facility]) Smoking 08/14/2019 12:00:00 AM EDT Former Smoker completed Former Smoker eCW1 ([facility]) Smoking 08/14/2019 12:00:00 AM EDT Former Smoker completed Former Smoker eCW1 ([facility]) Smoking 08/14/2019 12:00:00 AM EDT Former Smoker completed Former Smoker eCW1 ([facility]) Vital Signs ID Date Data Source UNK Name Value Range Interpretation Code Description Data Source(s) Body surface area Derived from formula 1.79 m2 1.79 m2 [facility] ([facility]) Body weight 64.865 kg 64.865 kg [facility] ([facility]) [place] body weight 160 [lb_av] 160 [lb_av] [facility] ([facility]) Body mass index (BMI) [Ratio] 21.1 kg/m2 21.1 k g/m2 [facility] ([facility]) Body weight 143.00 [lb_av] 143.00 [lb_av] [facility] T ([facility]) stated Body height 69 [in_i] 69 [in_i] [facility] ([facility]) 5'9" Diastolic blood pressure 73 mm[Hg] 73 mm[Hg] [facility] ([facility]) Systolic blood pressure 123 mm[Hg] 123 mm[Hg] [facility] [place] body weight 160 [lb_av] 160 [lb_av] [facility] T ([facility]) Body mass index (BMI) [Ratio] 21.1 kg/m2 21.1 k g/m2 [facility] ([facility]) Body weight 143.00 [lb_av] 143.00 [lb_av] [facility] ([facility]) Body height 69 [in_i] 69 [in_i] [facility] ([facility]) 5'9" Diastolic blood pressure 63 mm[Hg] 63 mm[Hg] [facility] ([facility]) Systolic blood pressure 110 mm[Hg] 110 mm[Hg] [facility] Body surface area Derived from formula 1.79 m2 1.79 m2 [facility] ([facility]) Body weight 64.865 kg 64.865 kg [facility] ([facility]) [place] body weight 160 [lb_av] 160 [lb_av] [facility] T ([facility]) Body height 69 [in_i] 69 [in_i] [facility] ([facility]) 5'9" Heart rate 85 /min 85 /min [facility] ([facility]) Diastolic blood pressure 61 mm[Hg] 61 mm[Hg] [facility] ([facility]) Systolic blood pressure 126 mm[Hg] 126 mm[Hg] M [facility] ([facility]) Diastolic blood pressure 78 mm[Hg] 78 mm[Hg] eCW1 ([facility]) Systolic blood pressure 188 mm[Hg] 188 mm[Hg] e CW1 ([facility]) Body temperature 97.7 [degF] 97.7 [degF] eCW1 ( [facility]) Respiratory rate 20 /min 20 /min eCW1 ([facility]) Heart rate 90 /min 90 /min eCW1 ([facility]) Body mass index (BMI) [Ratio] 24.22 kg/m2 24.22 kg/m2 W1 ([facility]) Body height 69 [in_i] 69 [in_i] eCW1 ([facility]) Body weight 164 [lb_av] 164 [lb_av] eCW1 ([facility]) Diastolic blood pressure 58 mm[Hg] 58 mm[Hg] eCW1 ([facility]) Systolic blood pressure 107 mm[Hg] 107 mm[Hg] e CW1 ([facility]) Body temperature 98.5 [degF] 98.5 [degF] eCW1 ( [facility]) Respiratory rate 20 /min 20 /min eCW1 ([facility]) Heart rate 82 /min 82 /min eCW1 ([facility]) Body mass index (BMI) [Ratio] 24.22 kg/m2 24.22 kg/m2 eCW1 ([facility]) Body height 69 [in_i] 69 [in_i] eCW1 ([facility]) Body weight 164 [lb_av] 164 [lb_av] eCW1 ([facility]) Diastolic blood pressure mm[Hg] eCW1 ([facility]) Systolic blood pressure 188 mm[Hg] 188 mm[Hg] e CW1 ([facility]) Body temperature 98.2 [degF] 98.2 [degF] eCW1 ( [facility]) Respiratory rate 22 /min 22 /min eCW1 ([facility]) Heart rate 88 /min 88 /min eCW1 ([facility]) Body mass index (BMI) [Ratio] 24.81 kg/m2 24.81 kg/m2 eCW1 ([facility]) Body height 69 [in_i] 69 [in_i] eCW1 ([facility]) Body weight kg eCW1 ([facility]) Body weight 168 [lb_av] 168 [lb_av] eCW1 ([facility]) Body mass index (BMI) [Ratio] 24.8 [...] Body height 69 [in_i] 69 [in_i] MEDENT ([facility] 5'9" Body surface area Derived from formula 1.92 m2 1.92 m2 [facility] ([facility]) Body weight 76.318 kg 76.318 kg [facility] ([facility]) [place] body weight 160 [lb_av] 160 [lb_av] MED[facility] T ([facility]) Body mass index (BMI) [Ratio] 24.8 kg/m2 24.8 k g/m2 [facility] ([facility]) Body weight 168.25 [lb_av] 168.25 [lb_av] [facility] T ([facility]) Body height 69 [in_i] 69 [in_i] [facility] ([facility]) 5'9" Diastolic blood pressure 70 mm[Hg] 70 mm[Hg] [facility] ([facility]) Systolic blood pressure 128 mm[Hg] 128 mm[Hg] M [facility] ([facility]) Diastolic blood pressure 69 mm[Hg] 69 mm[Hg] eCW1 ([facility]) Systolic blood pressure 107 mm[Hg] 107 mm[Hg] e CW1 ([facility]) Body temperature 94.6 [degF] 94.6 [degF] eCW1 ( [facility]) Respiratory rate 18 /min 18 /min eCW1 ([facility]) Heart rate 77 /min 77 /min eCW1 ([facility]) Body mass index (BMI) [Ratio] 24.81 kg/m2 24.81 kg/m2 eCW1 ([facility]) Body height 69 [in_i] 69 [in_i] eCW1 ([facility]) Body weight kg eCW1 ([facility]) Body weight 168 [lb_av] 168 [lb_av] eCW1 ([facility]) Body mass index (BMI) [Ratio] 24.81 kg/m2 24.81 kg/m2 W1 ([facility]) Body height 69 [in_i] 69 [in_i] eCW1 ([facility]) Body weight kg eCW1 ([facility]) Body weight 168 [lb_av] 168 [lb_av] eCW1 ([facility]) Body weight 78.926 kg 78.926 kg [facility] ([facility]) [place] body weight 160 [lb_av] 160 [lb_av] [facility] T ([facility]) Body mass index (BMI) [Ratio] 25.7 kg/m2 25.7 k g/m2 [facility] ([facility]) Body weight 174.00 [lb_av] 174.00 [lb_av] [facility] T ([facility]) Body height 69 [in_i] 69 [in_i] [facility] ([facility]) 5'9" Diastolic blood pressure 70 mm[Hg] 70 mm[Hg] [facility] ([facility]) Systolic blood pressure 124 mm[Hg] 124 mm[Hg] [facility] ([facility]) Body mass index (BMI) [Ratio] 25.5 kg/m2 25.5 k g/m2 [facility] ([facility]) Body weight 173.00 [lb_av] 173.00 [lb_av] [facility] T ([facility]) Body height 69 [in_i] 69 [in_i] [facility] ([facility]) 5'9" Diastolic blood pressure 82 mm[Hg] 82 mm[Hg] [facility] ([facility]) Systolic blood pressure 140 mm[Hg] 140 mm[Hg] [facility] Body weight 78.473 kg 78.473 kg [facility] ([facility]) Body weight 77.566 kg 77.566 kg [facility] ([facility]) Body mass index (BMI) [Ratio] 25.2 kg/m2 25.2 k g/m2 [facility] ([facility]) Body weight 171.00 [lb_av] 171.00 [lb_av] [facility] T ([facility]) Body height 69 [in_i] 69 [in_i] [facility] ([facility]) 5'9" Diastolic blood pressure 70 mm[Hg] 70 mm[Hg] [facility] ([facility]) Systolic blood pressure 120 mm[Hg] 120 mm[Hg] [facility] ([facility]) Body weight 77.112 kg 77.112 kg [facility] ([facility]) Body mass index (BMI) [Ratio] 25.1 kg/m2 25.1 k g/m2 [facility] ([facility]) Body weight 170.00 [lb_av] 170.00 [lb_av] [facility] T ([facility]) Body height 69 [in_i] 69 [in_i] [facility] ([facility]) 5'9" Diastolic blood pressure 80 mm[Hg] 80 mm[Hg] [facility] ([facility]) Systolic blood pressure 153 mm[Hg] 153 mm[Hg] [facility] ([facility]) Body weight 77.225 kg 77.225 kg [facility] ([facility]) Body mass index (BMI) [Ratio] 25.1 kg/m2 25.1 k g/m2 [facility] ([facility]) Body weight 170.25 [lb_av] 170.25 [lb_av] [facility] T ([facility]) Body height 69 [in_i] 69 [in_i] [facility] ([facility]) 5'9" Diastolic blood pressure 60 mm[Hg] 60 mm[Hg] [facility] ([facility]) Systolic blood pressure 100 mm[Hg] 100 mm[Hg] [facility] ([facility]) Body weight 77.225 kg 77.225 kg [facility] ([facility]) Body mass index (BMI) [Ratio] 25.1 kg/m2 25.1 k g/m2 [facility] ([facility]) Body weight 170.25 [lb_av] 170.25 [lb_av] [facility] T ([facility]) Body height 69 [in_i] 69 [in_i] [facility] ([facility], ) 5'9" Diastolic blood pressure 73 mm[Hg] 73 mm[Hg] [facility] ([facility]) Systolic blood pressure 128 mm[Hg] 128 mm[Hg] [facility]) Diastolic blood pressure 78 mm[Hg] 78 mm[Hg] eCW1 ([facility]) Systolic blood pressure 145 mm[Hg] 145 mm[Hg] e CW1 ([facility]) Body temperature 97.8 [degF] 97.8 [degF] eCW1 ( [facility]) Respiratory rate 17 /min 17 /min eCW1 ([facility]) Heart rate 87 /min 87 /min eCW1 ([facility]) Body mass index (BMI) [Ratio] 24.81 kg/m2 24.81 kg/m2 W1 ([facility]) Body height 69 [in_i] 69 [in_i] eCW1 ([facility]) Body weight 168 [lb_av] 168 [lb_av] eCW1 ([facility]) Body weight 74.844 kg 74.844 kg [facility] ([facility], ) Body mass index (BMI) [Ratio] 24.4 kg/m2 24.4 k g/m2 [facility] ([facility]) Body weight 165.00 [lb_av] 165.00 [lb_av] MEDEN T ([facility], ) Body height 69 [in_i] 69 [in_i] [facility] ([facility], ) 5'9" Diastolic blood pressure 80 mm[Hg] 80 mm[Hg] [facility] ([facility], ) Systolic blood pressure 165 mm[Hg] 165 mm[Hg] [facility] ) Diastolic blood pressure 68 mm[Hg] 68 mm[Hg] eCW1 ([facility]) Systolic blood pressure 111 mm[Hg] 111 mm[Hg] e CW1 ([facility]) Body temperature 98.0 [degF] 98.0 [degF] eCW1 ( [facility]) Respiratory rate 18 /min 18 /min eCW1 ([facility]) Heart rate 89 /min 89 /min eCW1 ([facility]) Body mass index (BMI) [Ratio] 24.81 kg/m2 24.81 kg/m2 eCW1 ([facility]) Body height 69 [in_us] 69 [in_us] eCW1 ([facility]) Body weight Measured 168 [lb_av] 168 [lb_av] eC W1 ([facility]) Diastolic blood pressure 82 mm[Hg] 82 mm[Hg] eCW1 ([facility]) Systolic blood pressure 132 mm[Hg] 132 mm[Hg] e CW1 ([facility]) Body mass index (BMI) [Ratio] 25.25 kg/m2 25.25 kg/m2 eCW1 ([facility]) Body height 69 [in_us] 69 [in_us] eCW1 ([facility]) Body weight Measured 171 [lb_av] 171 [lb_av] eC W1 ([facility]) Patient Treatment Plan of Care Planned Activity Planned Date Details Description Data Source (s) Misc. Devices - 03/11/2020 12:00:00 AM EST eCW1 ([facility]) Misc. Devices - 03/11/2020 12:00:00 AM EST eCW1 ([facility]) Misc. Devices - 03/11/2020 12:00:00 AM EST eCW1 ([facility]) Misc. Devices - 03/11/2020 12:00:00 AM EST eCW1 ([facility]) Misc. Devices - 03/11/2020 12:00:00 AM EST eCW1 ([facility]) Wheelchair - 02/24/2020 12:00:00 AM EST e CW1 ([facility]) Wheelchair - 02/24/2020 12:00:00 AM EST e CW1 ([facility]) Wheelchair - 02/24/2020 12:00:00 AM EST e CW1 ([facility]) Wheelchair - 02/24/2020 12:00:00 AM EST e CW1 ([facility]) Wheelchair - 02/24/2020 12:00:00 AM EST e CW1 ([facility]) Wheelchair - 02/24/2020 12:00:00 AM EST e CW1 ([facility]) Wheelchair - 02/24/2020 12:00:00 AM EST e CW1 ([facility]) Wheelchair - 02/24/2020 12:00:00 AM EST e CW1 ([facility]) Finasteride 5 MG Oral Tablet [Proscar] 09/05/2019 12:00:00 AM EDT eCW1 ([facility]) Finasteride 5 MG Oral Tablet [Proscar] 09/05/2019 12:00:00 AM EDT eCW1 ([facility]) Finasteride 5 MG Oral Tablet [Proscar] 09/05/2019 12:00:00 AM EDT eCW1 ([facility]) Finasteride 5 MG Oral Tablet [Proscar] 09/05/2019 12:00:00 AM EDT eCW1 ([facility]) Citalopram 40 MG Oral Tablet [Celexa] 04/17/2019 12:00:00 AM EST eCW1 ([facility]) Celexa 40 MG 04/17/2019 12:00:00 AM EST e CW1 ([facility])
[2020-04-13] MEDS ORDERED: VANCOMYCIN HCL 1,000 MG, VIAL MATE ADAPTER 1 EACH in D5W 250 ML IV ONE (02:45)
[2020-04-13] MEDS ORDERED: PRED1TABL PO (03:44)
[2020-04-13] MEDS ORDERED: DOCU100C17 PO (03:44)
[2020-04-13] MEDS ORDERED: PANT40TA29 PO (03:44)
[2020-04-13] MEDS ORDERED: VITMTA PO (03:44)
[2020-04-13] MEDS ORDERED: CEPH500C PO (03:44)
[2020-04-13] MEDS ORDERED: GABA-282 PO (03:44)
[2020-04-13] MEDS ORDERED: PYRI60TA2 PO (03:44)
[2020-04-13] MEDS ORDERED: FINA5TAB2 PO (03:44)
[2020-04-13] MEDS ORDERED: CITA40TA6 PO (03:44)
[2020-04-13] MEDS ORDERED: FLOM0.4C39 PO (03:44)
[2020-04-13] MEDS ORDERED: PRED5TA PO (03:44)
[2020-04-13] MEDS ORDERED: PLAV1TAB2 PO (03:44)
[2020-04-13] MEDS ORDERED: ASPI-161 PO (03:44)
[2020-04-13] MEDS ORDERED: ATOR40TA75 PO (03:44)
[2020-04-13 05:20] VITALS: BP 164/82
[2020-04-13] MEDS: ACETAMINOPHEN TAB 650MG DOSE (2X325MG) PO PRN (05:22)
[2020-04-13] MEDS: cefTRIAXone SOD 2 GM in D5W MINI-BAG PLUS 50 ML IV SCH ×2 (06:29→17:41)
[2020-04-13] MEDS: HumaLOG INSULIN (NovoLOG) PER UNIT SC SCH ×4 (07:30→20:38)
[2020-04-13 08:00] VITALS: BP 149/66
[2020-04-13 08:09] LABS: HEMATOCRIT 30.4 % (42.0-52.0); HEMOGLOBIN 9.7 g/dl (13.5-17.5); MEAN CORPUSCULAR HEMOGLOBIN 29.8 pg (27.0-33.0); MEAN CORPUSCULAR HGB CONC 31.9 g/dl (32.0-36.5); MEAN CORPUSCULAR VOLUME 93.5 fl (80.0-96.0); PLATELET COUNT, AUTOMATED 221 10^3/uL (150-450); RED BLOOD COUNT 3.25 10^6/uL (4.30-6.10); WHITE BLOOD COUNT 8.7 10^3/uL (4.0-10.0)
[2020-04-13] MEDS: ENOXAPARIN 40MG/0.4ML SYRINGE (J1650 PER 10MG) SC SCH (08:22)
[2020-04-13] MEDS: traMADol 50 MG TAB PO PRN (08:23)
[2020-04-13] MEDS: DOCUSATE SODIUM 100MG CAPSULE PO SCH ×2 (08:23→20:45)
[2020-04-13] MEDS: ONDANSETRON 4 MG ORAL DISINTEGRATING TAB PO PRN ×2 (08:23→18:41)
[2020-04-13 08:51] LABS: ALT/SGPT 20 U/L (12-78); BILIRUBIN,TOTAL 0.7 MG/DL (0.2-1.0); BLOOD UREA NITROGEN 9 MG/DL (7-18); CALCIUM LEVEL 7.9 MG/DL (8.8-10.2); CARBON DIOXIDE LEVEL 27 MEQ/L (21-32); CHLORIDE LEVEL 103 MEQ/L (98-107); CREATININE FOR GFR 1.13 MG/DL (0.70-1.30); GLOMERULAR FILTRATION RATE > 60.0 (>49); GLUCOSE, FASTING 236 MG/DL (70-100); POTASSIUM SERUM 4.2 MEQ/L (3.5-5.1); SODIUM LEVEL 137 MEQ/L (136-145); TOTAL PROTEIN 5.8 GM/DL (6.4-8.2)
--- NOTE | 2020-04-13 09:03 | ECGEPIP ---
[facility] - ED Test Date: 2020-04-12 Pat Name: SEBASTIEN GARCIA Department: Room: [place] [address] Gender: Male [employer]: DHIRAJ : 1960 Requested By: RADHA Campbell Order Number: [id number] Reading MD: Lorie Garcia Measurements Intervals [place] Rate: 98 P: 66 DC: 133 QRS: 33 QRSD: 86 T: 31 QT: 335 QTc: 428 Interpretive Statements SINUS RHYTHM NONSPECIFIC ST & T-WAVE ABNORMALITY INCREASED RATE/STT CHANGES COMPARED 02/10/20 Electronically Signed on 04-13-2020 9:03:44 EST by Lorie Garcia
[2020-04-13] MEDS: VANCOMYCIN HCL 750 MG, VIAL MATE ADAPTER 1 EACH in D5W 250 ML IV SCH ×2 (09:51→20:45)
[2020-04-13 12:00] VITALS: BP 157/71
[2020-04-13] MEDS ORDERED: LEVEMIR (INSULIN DETEMIR) 1 UNITS/0.01ML SC ONE (12:30)
--- NOTE | 2020-04-13 14:26 | IPNPDOC ---
Date Seen The patient was seen on 04/13/20. Progress Note SUBJECTIVE: No complaints overnight. Vascular surgery not available for consult today. WBC wnl, BS improved to >200, FS changed to AC/HS. Denies chest pain, n/v/d. OBJECTIVE: PHYSICAL EXAMINATION: VITAL SIGNS: please see below General: NAD, comfortable HEENT: PERRLA, EOMI, sclerae clear Neck: supple, normal ROM, no JVD Respiratory: lungs CTAB, no wheeze, no rales, no crackles CVS: RRR, normal S1, S2, no murmurs Abdo: soft, no masses, no hepatosplenomegaly, BS+, no rebound tenderness Extremities: no edema, pulses 2+ MSK: bilateral BKAs. R stump suture skin erythematous, tender to touch, non purulent. Stitches in place. no fluctuant masses. Neuro: no focal neuro deficits, moving all 4 extremities, CN2-12 intact. Strength 5/5 in all 4 extremities. No nystagmus. Psych: calm, cooperative, AAO x 3 LABORATORY DATA: See below. IMAGING: Right knee XR: Status post below-knee amputation. No acute abnormality. MICROBIOLOGY: BCx x 2 sets pending ASSESSMENT: 59 yo M with type 1 DM, bilateral BKAs admitted to hospitalist service for management of sepsis 2/2 cellulitis of R BKA stump and resultant hypoglycemia. . PLAN: #Cellulitis of R BKA stump, resolved sepsis -WBC wnl, afebrile since admission, HR now wnl -Per patient, vascular surgery has been monitoring his cellulitis as o/p. Failed o/p treatment -F/u BCx x 2 sets -If able, consult Vascular surgery this week -C/w vancomycin IV, ceftriaxone #Type 1 DM -Resolved hypoglycemia, s/p multiple amp D50 plus D5W continuous -BS now >200 -Started on levemir 8 Units QAM -C/w ISS, FS AC/HS, consistent carb diet -Hypoglycemic precautions #Nausea -Improved this AM -Zofran PRN #Chronic Deconditioning -Per vascular surgery PA, patient has had issues at home with ambulation -PT/OT -Goal is home with services #Peripheral vascular disease s/p right above knee amputation -Follows closely with Dr. Boss's office -C/w ASA/plavix #Adrenal insufficiency -C/w prednisone #Glaucoma -C/w home meds #BPH/hx urinary retention -C/w home meds #DVT ppx -Lovenox DISPOSITION: Admitted as acute inpatient. Plan is home with services when medically improved. VS, I&O, 24H, Fishbone Vital Signs/I&O Vital Signs Date Time Temp Pulse Resp B/P (MAP) Pulse Ox O2 Delivery O2 Flow Rate FiO2 04/13/20 12:00 98.1 78 16 157/71 (99) 96 Room Air I&O- Last 24 Hours up to 6 AM 04/13/20 06:00 Intake Total 1145 ml Output Total 200 ml Balance 945 ml Laboratory Data 24H LABS Laboratory Tests 2 04/12/20 20:23: Immature Granulocyte % (Auto) 0.5, Neutrophils (%) (Auto) 63.8, Lymphocytes (%) (Auto) 23.1L, Monocytes (%) (Auto) 11.1H, Eosinophils (%) (Auto) 1.1, Basophils (%) (Auto) 0.4, Neutrophils # (Auto) 6.6, Lymphocytes # (Auto) 2.4, Monocytes # (Auto) 1.1H, Eosinophils # (Auto) 0.1, Basophils # (Auto) 0.0, Nucleated Red Blood Cells % (auto) 0.0, Urine Color YELLOW, Urine Appearance CLEAR, Urine pH 8.0, Urine Specific [place] 1.009, Urine Protein NEGATIVE, Urine Glucose (UA) NEGATIVE, Urine Ketones NEGATIVE, Urine Blood NEGATIVE, Urine Nitrite NEGATIVE, Urine Bilirubin NEGATIVE, Urine Urobilinogen 0.2, Urine Leukocyte Esterase NEGATIVE, Urine WBC (Auto) 0, Urine RBC (Auto) 3, Urine Hyaline Casts (Auto) 0, Urine Bacteria (Auto) NEGATIVE, Urine Squamous Epithelial Cells 0, Urine Sperm (Auto) , Lactic Acid Level 0.9 04/12/20 21:25: Anion Gap 7L, Glomerular Filtration Rate 59.9, Calcium Level 8.3L, Total Bilirubin 0.3, Direct Bilirubin < 0.1, Aspartate Amino Transf (AST/SGOT) 25, Alanine Aminotransferase (ALT/SGPT) 25, Alkaline Phosphatase 107, Total Protein 6.3L, Albumin 3.3, Albumin/Globulin Ratio 1.1, Thyroid Stimulating Hormone (TSH) 2.200, Free Thyroxine 0.81 04/12/20 21:32: Bedside Glucose (Misc Panel) 17*L 04/12/20 22:21: Bedside Glucose (Misc Panel) 61L 04/12/20 23:30: Bedside Glucose (Misc Panel) 30*L 04/12/20 23:32: Bedside Glucose (Misc Panel) 34*L 04/13/20 01:01: Bedside Glucose (Misc Panel) 123H 04/13/20 02:29: Bedside Glucose (Misc Panel) 179H 04/13/20 06:04: Bedside Glucose (Misc Panel) 240H 04/13/20 07:45: Nucleated Red Blood Cells % (auto) 0.0 04/13/20 07:50: Anion Gap 7L, Glomerular Filtration Rate > 60.0, Calcium Level 7.9L, Total Bilirubin 0.7#, Aspartate Amino Transf (AST/SGOT) 22, Alanine Aminotransferase (ALT/SGPT) 20, Alkaline Phosphatase 99, Total Protein 5.8L, Albumin 3.0L, Albumin/Globulin Ratio 1.1 04/13/20 12:06: Bedside Glucose (Misc Panel) 309H CBC/BMP Laboratory Tests 04/12/20 20:23 04/12/20 21:25 04/13/20 07:45 04/13/20 07:50 Microbiology Microbiology 04/12/20 Respiratory Virus Panel (PCR) (DARLINE) - Final, Complete 04/12/20 Blood Culture, Received Pending 04/12/20 Blood Culture, Received Pending Current Medications Current Medications Medications (Trade) Dose Ordered Sig/Vladimir Route PRN Reason Start Time Stop Time Status Last Admin Dose Admin Acetaminophen (Tylenol Tab) 650 mg Q4H PRN PO PAIN OR FEVER 04/13/20 02:30 04/13/20 05:22 Al Hydrox/Mg Hydrox/Simethicone (Mylanta) 30 ml DAILY PRN PO DYSPEPSIA 04/13/20 02:30 Ceftriaxone Sodium 2 gm/ Dextrose 50 ml @ 100 mls/hr Q12H IV 04/13/20 06:00 04/13/20 06:29 Dextrose (Dextrose 50%) 25 ml ASDIRECTED PRN IV SEE LABEL COMMENTS 04/13/20 02:30 Dextrose (Dextrose 50%) 50 ml STAT STAT IV 04/12/20 21:33 04/12/20 21:34 DC 04/12/20 22:25 Dextrose (Dextrose 50%) 50 ml STAT STAT IV 04/12/20 23:47 04/12/20 23:48 DC 04/12/20 23:59 Dextrose/Sodium Chloride 1,000 ml @ 75 mls/hr [id number] IV 04/13/20 00:30 04/13/20 02:29 DC 04/13/20 00:57 Dextrose/Sodium Chloride 1,000 ml @ 75 mls/hr [id number] IV 04/13/20 02:30 04/13/20 06:19 DC 04/13/20 02:32 Dextrose/Sodium Chloride 1,000 ml @ 150 mls/hr Q6H40M IV 04/12/20 22:30 04/13/20 00:36 DC 04/12/20 22:28 Docusate Sodium (Colace) 100 mg BID PO 04/13/20 09:00 04/13/20 08:23 Enoxaparin Sodium (Lovenox) 40 mg DAILY SC 04/13/20 09:00 04/13/20 08:22 Glucagon (Glucagon) 1 mg ASDIRECTED PRN SC SEE LABEL COMMENTS 04/13/20 02:30 Glucose (Glucose) 16 GM ASDIRECTED PRN PO SEE LABEL COMMENTS 04/13/20 02:30 Home Med (Med Rec Complete!) ASDIRECTED XX 04/13/20 03:45 04/13/20 04:01 DC Insulin Detemir (Levemir Insulin) 8 units QAM SC 04/14/20 09:00 Insulin Human Lispro (HumaLOG INSULIN) SEE PROTOCOL TABLE AC SC 04/13/20 07:30 04/13/20 12:39 Insulin Human Lispro (HumaLOG INSULIN) SEE PROTOCOL TABLE QHS SC 04/13/20 21:00 Magnesium Hydroxide (Milk Of Magnesia) 30 ml DAILY PRN PO CONSTIPATION 04/13/20 02:30 Ondansetron HCl (Zofran Odt) 4 mg Q6HP PRN PO NAUSEA OR VOMITING 04/13/20 08:00 04/13/20 08:23 Sodium Chloride 1,000 ml @ 150 mls/hr Q6H40M IV 04/12/20 20:11 04/13/20 00:36 DC 04/12/20 20:53 Tramadol HCl (Ultram) 50 mg Q6HP PRN PO MODERATE PAIN (PS 5-7) 04/13/20 08:00 04/13/20 08:23 Vancomycin HCl 750 mg/IV Miscellaneous Supplies 1 each/ Dextrose 275 ml @ 270 mls/hr Q12H IV 04/13/20 09:00 04/13/20 09:51 Allergies Coded Allergies: No Known Allergies (Unverified , 03/01/20) Socorro Panchal MD Apr 13, 2020 14:26
[2020-04-13 16:39] VITALS: BP 145/61
[2020-04-13 22:00] VITALS: BP 137/66
[2020-04-13] MEDS ORDERED: METOCLOPRAMIDE INJ 10MG/2ML VIAL (J2765 PER 1) IV PRN (22:15)
[2020-04-14] MEDS: traMADol 50 MG TAB PO PRN ×2 (00:46→07:46)
[2020-04-14] MEDS: ACETAMINOPHEN TAB 650MG DOSE (2X325MG) PO PRN (05:30)
[2020-04-14] MEDS: cefTRIAXone SOD 2 GM in D5W MINI-BAG PLUS 50 ML IV SCH (05:30)
[2020-04-14 06:00] VITALS: BP 118/59
[2020-04-14 06:55] LABS: HEMATOCRIT 32.1 % (42.0-52.0); HEMOGLOBIN 10.1 g/dl (13.5-17.5); MEAN CORPUSCULAR HEMOGLOBIN 29.7 pg (27.0-33.0); MEAN CORPUSCULAR HGB CONC 31.5 g/dl (32.0-36.5); MEAN CORPUSCULAR VOLUME 94.4 fl (80.0-96.0); PLATELET COUNT, AUTOMATED 226 10^3/uL (150-450); WHITE BLOOD COUNT 7.2 10^3/uL (4.0-10.0)
[2020-04-14 07:22] LABS: BLOOD UREA NITROGEN 10 MG/DL (7-18); CALCIUM LEVEL 8.8 MG/DL (8.8-10.2); CARBON DIOXIDE LEVEL 31 MEQ/L (21-32); CHLORIDE LEVEL 100 MEQ/L (98-107); CREATININE FOR GFR 1.04 MG/DL (0.70-1.30); GLOMERULAR FILTRATION RATE > 60.0 (>49); GLUCOSE, FASTING 216 MG/DL (70-100); POTASSIUM SERUM 4.8 MEQ/L (3.5-5.1); SODIUM LEVEL 135 MEQ/L (136-145)
[2020-04-14 07:23] LABS: ALBUMIN 2.9 GM/DL (3.2-5.2); ALT/SGPT 19 U/L (12-78); BILIRUBIN,TOTAL 0.6 MG/DL (0.2-1.0); TOTAL PROTEIN 6.3 GM/DL (6.4-8.2)
[2020-04-14] MEDS: HumaLOG INSULIN (NovoLOG) PER UNIT SC SCH ×4 (07:30→22:49)
[2020-04-14] MEDS ORDERED: LEVEMIR (INSULIN DETEMIR) 1 UNITS/0.01ML SC SCH (09:00)
[2020-04-14] MEDS: VANCOMYCIN HCL 750 MG, VIAL MATE ADAPTER 1 EACH in D5W 250 ML IV SCH ×2 (09:01→22:02)
[2020-04-14] MEDS: DOCUSATE SODIUM 100MG CAPSULE PO SCH ×2 (09:01→22:02)
[2020-04-14] MEDS: ENOXAPARIN 40MG/0.4ML SYRINGE (J1650 PER 10MG) SC SCH (09:02)
[2020-04-14] MEDS ORDERED: FIORICET TAB PO PRN (10:00)
--- NOTE | 2020-04-14 13:33 | IPNPDOC ---
Date Seen The patient was seen on 04/14/20. Progress Note SUBJECTIVE: Discussed case with Dr. Boss who recommended continued treatment with abx, PT/OT. Headache improved with fioricet, hx of migraine headaches. Cellulitis has not increased, afebrile. Denies chest pain, n/v/d. OBJECTIVE: PHYSICAL EXAMINATION: VITAL SIGNS: please see below General: NAD, comfortable HEENT: PERRLA, EOMI, sclerae clear Neck: supple, normal ROM, no JVD Respiratory: lungs CTAB, no wheeze, no rales, no crackles CVS: RRR, normal S1, S2, no murmurs Abdo: soft, no masses, no hepatosplenomegaly, BS+, no rebound tenderness Extremities: no edema, pulses 2+ MSK: bilateral BKAs. R stump suture skin erythematous, nontender to touch, non purulent- swelling appears to be going down. Stitches in place. no fluctuant masses. Neuro: no focal neuro deficits, moving all 4 extremities, CN2-12 intact. Strength 5/5 in all 4 extremities. No nystagmus. Psych: calm, cooperative, AAO x 3 LABORATORY DATA: See below. IMAGING: Right knee XR: Status post below-knee amputation. No acute abnormality. MICROBIOLOGY: BCx x 2 sets: NG to date ASSESSMENT: 59 yo M with type 1 DM, bilateral BKAs admitted to hospitalist service for management of sepsis 2/2 cellulitis of R BKA stump and hypoglycemia. PLAN: #Cellulitis of R BKA stump -WBC wnl, afebrile -Per patient, vascular surgery has been monitoring his cellulitis as o/p. Failed o/p treatment. -BCx NG -Discussed case today with Dr. Boss who agreed with current care, recommended continued rehab as patient keeps falling at home, putting integrity of stump at risk with falls. He has had similar issue in the past with left DKA stump. -C/w vancomycin IV, d/c ceftriaxone -Daily CBC #Migraine headaches -Hx of migraines but has not had one in years -Headache did not respond to tylenol, tramadol -Started fioricet and this improved headache -Fioricet PRN #Type 1 DM -No episodes of hypoglycemia, BS 236 this AM -C/w levemir 12 Units QAM, ISS, FS AC/HS, consistent carb diet -Hypoglycemic precautions #Chronic Deconditioning -Per vascular surgery PA, patient has had issues at home with ambulation -PT: has been refusing services due to pain. -Will discuss with patient about necessity to participate, can premedicate -Goal is home with services vs. rehab at discharge #Peripheral vascular disease s/p right above knee amputation -Follows closely with Dr. Boss's office -C/w ASA/plavix #Adrenal insufficiency -C/w prednisone #Glaucoma -C/w home meds #BPH/hx urinary retention -C/w home meds #DVT ppx -Lovenox Resolved issues: Sepsis 2/2 to cellulitis of right stump Nausea likely 2/2 to migraine headaches DISPOSITION: Currently acute inpatient. Plan is home with services vs. rehab when medically improved. VS, I&O, 24H, Fishbone Vital Signs/I&O Vital Signs Date Time Temp Pulse Resp B/P (MAP) Pulse Ox O2 Delivery O2 Flow Rate FiO2 04/14/20 10:33 16 04/14/20 06:00 98.1 70 118/59 (78) 98 Room Air I&O- Last 24 Hours up to 6 AM 04/14/20 06:00 Intake Total 470 ml Output Total 1400 ml Balance -930 ml Laboratory Data 24H LABS Laboratory Tests 2 04/13/20 17:00: Bedside Glucose (Misc Panel) 112 04/13/20 20:14: Bedside Glucose (Misc Panel) 138H 04/14/20 06:40: Nucleated Red Blood Cells % (auto) 0.0, Anion Gap 4L, Glomerular Filtration Rate > 60.0, Calcium Level 8.8, Total Bilirubin 0.6, Aspartate Amino Transf (AST/SGOT) 20, Alanine Aminotransferase (ALT/SGPT) 19, Alkaline Phosphatase 109, Total Protein 6.3L, Albumin 2.9L, Albumin/Globulin Ratio 0.9 04/14/20 11:46: Bedside Glucose (Misc Panel) 271H CBC/BMP Laboratory Tests 04/14/20 06:40 Microbiology Microbiology 04/12/20 Respiratory Virus Panel (PCR) (DARLINE) - Final, Complete 04/12/20 Blood Culture - Preliminary, Resulted No growth after 24 hours . All specim... 04/12/20 Blood Culture - Preliminary, Resulted No growth after 24 hours . All specim... Current Medications Current Medications Medications (Trade) Dose Ordered Sig/Vladimir Route PRN Reason Start Time Stop Time Status Last Admin Dose Admin Acetaminophen (Tylenol Tab) 650 mg Q4H PRN PO PAIN OR FEVER 04/13/20 02:30 04/14/20 05:30 Acetaminophen/ Butalbital/ Caffeine (Fioricet) 1 ea Q6HP PRN PO HEADACHE 04/14/20 10:00 04/14/20 10:03 Al Hydrox/Mg Hydrox/Simethicone (Mylanta) 30 ml DAILY PRN PO DYSPEPSIA 04/13/20 02:30 Ceftriaxone Sodium 2 gm/ Dextrose 50 ml @ 100 mls/hr Q12H IV 04/13/20 06:00 04/14/20 05:30 Dextrose (Dextrose 50%) 25 ml ASDIRECTED PRN IV SEE LABEL COMMENTS 04/13/20 02:30 Dextrose (Dextrose 50%) 50 ml STAT STAT IV 04/12/20 21:33 04/12/20 21:34 DC 04/12/20 22:25 Dextrose (Dextrose 50%) 50 ml STAT STAT IV 04/12/20 23:47 04/12/20 23:48 DC 04/12/20 23:59 Dextrose/Sodium Chloride 1,000 ml @ 75 mls/hr [id number] IV 04/13/20 00:30 04/13/20 02:29 DC 04/13/20 00:57 Dextrose/Sodium Chloride 1,000 ml @ 75 mls/hr [id number] IV 04/13/20 02:30 04/13/20 06:19 DC 04/13/20 02:32 Dextrose/Sodium Chloride 1,000 ml @ 150 mls/hr Q6H40M IV 04/12/20 22:30 04/13/20 00:36 DC 04/12/20 22:28 Docusate Sodium (Colace) 100 mg BID PO 04/13/20 09:00 04/14/20 09:01 Enoxaparin Sodium (Lovenox) 40 mg DAILY SC 04/13/20 09:00 04/14/20 09:02 Glucagon (Glucagon) 1 mg ASDIRECTED PRN SC SEE LABEL COMMENTS 04/13/20 02:30 Glucose (Glucose) 16 GM ASDIRECTED PRN PO SEE LABEL COMMENTS 04/13/20 02:30 Home Med (Med Rec Complete!) ASDIRECTED XX 04/13/20 03:45 04/13/20 04:01 DC Insulin Detemir (Levemir Insulin) 8 units QAM SC 04/14/20 09:00 Insulin Human Lispro (HumaLOG INSULIN) SEE PROTOCOL TABLE AC SC 04/13/20 07:30 04/14/20 12:08 Insulin Human Lispro (HumaLOG INSULIN) SEE PROTOCOL TABLE QHS SC 04/13/20 21:00 Magnesium Hydroxide (Milk Of Magnesia) 30 ml DAILY PRN PO CONSTIPATION 04/13/20 02:30 Metoclopramide HCl (REGLAN INJection) 5 mg Q6HP PRN IV NAUSEA OR VOMITING 04/13/20 22:15 04/13/20 22:15 Ondansetron HCl (Zofran Odt) 4 mg Q6HP PRN PO NAUSEA OR VOMITING 04/13/20 08:00 04/13/20 18:41 Sodium Chloride 1,000 ml @ 150 mls/hr Q6H40M IV 04/12/20 20:11 04/13/20 00:36 DC 04/12/20 20:53 Tramadol HCl (Ultram) 50 mg Q6HP PRN PO MODERATE PAIN (PS 5-7) 04/13/20 08:00 04/14/20 07:46 Vancomycin HCl 750 mg/IV Miscellaneous Supplies 1 each/ Dextrose 275 ml @ 270 mls/hr Q12H IV 04/13/20 09:00 04/14/20 09:01 Allergies Coded Allergies: No Known Allergies (Unverified , 03/01/20) Socorro Panchal MD Apr 14, 2020 13:33
[2020-04-14 14:00] VITALS: BP 108/51
[2020-04-14 22:00] VITALS: BP 144/53
[2020-04-15 06:00] VITALS: BP 133/69
[2020-04-15 06:01] LABS: HEMATOCRIT 32.4 % (42.0-52.0); HEMOGLOBIN 10.4 g/dl (13.5-17.5); MEAN CORPUSCULAR HEMOGLOBIN 30.1 pg (27.0-33.0); MEAN CORPUSCULAR HGB CONC 32.1 g/dl (32.0-36.5); MEAN CORPUSCULAR VOLUME 93.6 fl (80.0-96.0); PLATELET COUNT, AUTOMATED 223 10^3/uL (150-450); RED BLOOD COUNT 3.46 10^6/uL (4.30-6.10); WHITE BLOOD COUNT 4.7 10^3/uL (4.0-10.0)
[2020-04-15 06:38] LABS: ALBUMIN 2.7 GM/DL (3.2-5.2); ALT/SGPT 20 U/L (12-78); BILIRUBIN,TOTAL 0.6 MG/DL (0.2-1.0); BLOOD UREA NITROGEN 13 MG/DL (7-18); CARBON DIOXIDE LEVEL 31 MEQ/L (21-32); CHLORIDE LEVEL 99 MEQ/L (98-107); CREATININE FOR GFR 1.02 MG/DL (0.70-1.30); GLOMERULAR FILTRATION RATE > 60.0 (>49); GLUCOSE, FASTING 290 MG/DL (70-100); POTASSIUM SERUM 4.7 MEQ/L (3.5-5.1); SODIUM LEVEL 133 MEQ/L (136-145); TOTAL PROTEIN 6.5 GM/DL (6.4-8.2)
[2020-04-15] MEDS: ENOXAPARIN 40MG/0.4ML SYRINGE (J1650 PER 10MG) SC SCH (08:56)
[2020-04-15] MEDS: DOCUSATE SODIUM 100MG CAPSULE PO SCH ×2 (08:56→20:12)
[2020-04-15] MEDS: VANCOMYCIN HCL 750 MG, VIAL MATE ADAPTER 1 EACH in D5W 250 ML IV SCH ×3 (08:56→20:12)
[2020-04-15] MEDS: HumaLOG INSULIN (NovoLOG) PER UNIT SC SCH ×5 (08:57→23:44)
[2020-04-15] MEDS ORDERED: LEVEMIR (INSULIN DETEMIR) 1 UNITS/0.01ML SC SCH (09:00)
[2020-04-15] MEDS: traMADol 50 MG TAB PO PRN (11:07)
[2020-04-15 12:02] LABS: INR 1.02; PROTHROMBIN TIME 13.6 SECONDS (12.5-14.3)
[2020-04-15 12:03] LABS: PARTIAL THROMBOPLASTIN TIME 42.8 SECONDS (24.2-38.5)
[2020-04-15 14:00] VITALS: BP 136/66
[2020-04-15] MEDS ORDERED: LIDOCAINE 1% MDV 20ML VIAL As Ordered ONE (16:32)
[2020-04-15] MEDS ORDERED: ISOVUE-300 61% 50ML VIAL As Ordered ONE (17:14)
[2020-04-15] MEDS ORDERED: SODIUM CHLORIDE 0.9% INJ 10 ML SYR IV PRN (18:45)
--- NOTE | 2020-04-15 18:54 | IPNPDOC ---
Date Seen The patient was seen on 04/15/20. Progress Note SUBJECTIVE: Poor venous access, PICC requested. Cellulitis improving slowly. Denies chest pain, n/v/d. OBJECTIVE: PHYSICAL EXAMINATION: VITAL SIGNS: please see below General: NAD, comfortable HEENT: PERRLA, EOMI, sclerae clear Neck: supple, normal ROM, no JVD Respiratory: lungs CTAB, no wheeze, no rales, no crackles CVS: RRR, normal S1, S2, no murmurs Abdo: soft, no masses, no hepatosplenomegaly, BS+, no rebound tenderness Extremities: no edema, pulses 2+ MSK: bilateral BKAs. R stump suture skin erythematous, nontender to touch, non purulent- swelling and erythema appears to be improving slowly. Stitches in place. no fluctuant masses. Neuro: no focal neuro deficits, moving all 4 extremities, CN2-12 intact. Strength 5/5 in all 4 extremities. No nystagmus. Psych: calm, cooperative, AAO x 3 LABORATORY DATA: See below. IMAGING: Right knee XR: Status post below-knee amputation. No acute abnormality. MICROBIOLOGY: BCx x 2 sets: NG to date ASSESSMENT: 59 yo M with type 1 DM, bilateral BKAs admitted to hospitalist service for management of sepsis 2/2 cellulitis of R BKA stump and hypoglycemia. PLAN: #Cellulitis of R BKA stump -WBC wnl, afebrile -Per patient, vascular surgery has been monitoring his cellulitis as o/p. Failed o/p treatment. -BCx NG -Discussed case with Dr. Boss who agreed with current care, recommended continued rehab as patient keeps falling at home, putting integrity of stump at risk with falls. He has had similar issue in the past with left DKA stump. -PT/OT, f/u recommendations -C/w vancomycin IV (Day 3/7) -Daily CBC #Migraine headaches- resolved -Hx of migraines but has not had one in years -Fioricet PRN #Type 1 DM -BS 200-420, uncontrolled -Increased levemir to 20 U QAM, c/w ISS, FS AC/HS, consistent carb diet -Hypoglycemic precautions #Chronic Deconditioning -Per vascular surgery PA, patient has had issues at home with ambulation -PT/OT -Goal is home with services vs. rehab at discharge #Peripheral vascular disease s/p right above knee amputation -Follows closely with Dr. Boss's office -C/w ASA/plavix #Adrenal insufficiency -C/w prednisone #Glaucoma -C/w home meds #BPH/hx urinary retention -C/w home meds #DVT ppx -Lovenox Resolved issues: Sepsis 2/2 to cellulitis of right stump Nausea likely 2/2 to migraine headaches DISPOSITION: Currently acute inpatient. Plan is home with services vs. rehab when medically improved. VS, I&O, 24H, Fishbone Vital Signs/I&O Vital Signs Date Time Temp Pulse Resp B/P (MAP) Pulse Ox O2 Delivery O2 Flow Rate FiO2 04/15/20 17:30 73 18 95 Room Air 04/15/20 16:45 98.4 04/15/20 14:00 136/66 (89) I&O- Last 24 Hours up to 6 AM 04/15/20 05:59 Intake Total 1025 ml Output Total 1350 ml Balance -325 ml Laboratory Data 24H LABS Laboratory Tests 2 04/14/20 19:56: Vancomycin Level Trough 14.9 04/14/20 22:27: Bedside Glucose (Misc Panel) 402H 04/15/20 05:42: Nucleated Red Blood Cells % (auto) 0.0, Anion Gap 3L, Glomerular Filtration Rate > 60.0, Calcium Level 9.0, Total Bilirubin 0.6, Aspartate Amino Transf (AST/SGOT) 19, Alanine Aminotransferase (ALT/SGPT) 20, Alkaline Phosphatase 95, Total Protein 6.5, Albumin 2.7L, Albumin/Globulin Ratio 0.7 04/15/20 11:31: Prothrombin Time 13.6, Prothromb Time International Ratio 1.02, Activated Partial Thromboplast Time 42.8H 04/15/20 11:38: Bedside Glucose (Misc Panel) 342H 04/15/20 17:58: Bedside Glucose (Misc Panel) 339H CBC/BMP Laboratory Tests 04/15/20 05:42 Microbiology Microbiology 04/12/20 Respiratory Virus Panel (PCR) (DARLINE) - Final, Complete 04/12/20 Blood Culture - Preliminary, Resulted No Growth after 48 hours. All Specime... 04/12/20 Blood Culture - Preliminary, Resulted No Growth after 48 hours. All Specime... Current Medications Current Medications Medications (Trade) Dose Ordered Sig/Vladimir Route PRN Reason Start Time Stop Time Status Last Admin Dose Admin Acetaminophen (Tylenol Tab) 650 mg Q4H PRN PO PAIN OR FEVER 04/13/20 02:30 04/14/20 05:30 Acetaminophen/ Butalbital/ Caffeine (Fioricet) 1 ea Q6HP PRN PO HEADACHE 04/14/20 10:00 04/14/20 10:03 Al Hydrox/Mg Hydrox/Simethicone (Mylanta) 30 ml DAILY PRN PO DYSPEPSIA 04/13/20 02:30 Ceftriaxone Sodium 2 gm/ Dextrose 50 ml @ 100 mls/hr Q12H IV 04/13/20 06:00 04/14/20 13:21 DC 04/14/20 05:30 Dextrose (Dextrose 50%) 25 ml ASDIRECTED PRN IV SEE LABEL COMMENTS 04/13/20 02:30 Dextrose (Dextrose 50%) 50 ml STAT STAT IV 04/12/20 21:33 04/12/20 21:34 DC 04/12/20 22:25 Dextrose (Dextrose 50%) 50 ml STAT STAT IV 04/12/20 23:47 04/12/20 23:48 DC 04/12/20 23:59 Dextrose/Sodium Chloride 1,000 ml @ 75 mls/hr [id number] IV 04/13/20 00:30 04/13/20 02:29 DC 04/13/20 00:57 Dextrose/Sodium Chloride 1,000 ml @ 75 mls/hr [id number] IV 04/13/20 02:30 04/13/20 06:19 DC 04/13/20 02:32 Dextrose/Sodium Chloride 1,000 ml @ 150 mls/hr Q6H40M IV 04/12/20 22:30 04/13/20 00:36 DC 04/12/20 22:28 Docusate Sodium (Colace) 100 mg BID PO 04/13/20 09:00 04/15/20 08:56 Enoxaparin Sodium (Lovenox) 40 mg DAILY SC 04/13/20 09:00 04/15/20 08:56 Glucagon (Glucagon) 1 mg ASDIRECTED PRN SC SEE LABEL COMMENTS 04/13/20 02:30 Glucose (Glucose) 16 GM ASDIRECTED PRN PO SEE LABEL COMMENTS 04/13/20 02:30 Heparin Sodium (Heparin (Flush)) 100 units ASDIRECTED PRN IV SEE LABEL COMMENTS 04/15/20 18:45 Heparin Sodium (Heparin (Flush)) 100 units BID@0600,1800 IV 04/16/20 06:00 Home Med (Med Rec Complete!) ASDIRECTED XX 04/13/20 03:45 04/13/20 04:01 DC Insulin Detemir (Levemir Insulin) 8 units QAM SC 04/14/20 09:00 04/14/20 13:29 DC Insulin Detemir (Levemir Insulin) 12 units QAM SC 04/15/20 09:00 04/15/20 09:02 DC 04/15/20 08:57 Insulin Detemir (Levemir Insulin) 20 units QAM SC 04/16/20 09:00 Insulin Human Lispro (HumaLOG INSULIN) SEE PROTOCOL TABLE AC SC 04/13/20 07:30 04/15/20 18:18 Insulin Human Lispro (HumaLOG INSULIN) SEE PROTOCOL TABLE QHS SC 04/13/20 21:00 04/14/20 22:49 Magnesium Hydroxide (Milk Of Magnesia) 30 ml DAILY PRN PO CONSTIPATION 04/13/20 02:30 04/14/20 16:52 Metoclopramide HCl (REGLAN INJection) 5 mg Q6HP PRN IV NAUSEA OR VOMITING 04/13/20 22:15 04/13/20 22:15 Ondansetron HCl (Zofran Odt) 4 mg Q6HP PRN PO NAUSEA OR VOMITING 04/13/20 08:00 04/13/20 18:41 Sodium Chloride 1,000 ml @ 150 mls/hr Q6H40M IV 04/12/20 20:11 04/13/20 00:36 DC 04/12/20 20:53 Sodium Chloride (Saline Lock Flush) 10 ml ASDIRECTED PRN IV SEE LABEL COMMENTS 04/15/20 18:45 Sodium Chloride (Saline Lock Flush) 10 ml BID@0600,1800 IV 04/16/20 06:00 Tramadol HCl (Ultram) 50 mg Q6HP PRN PO MODERATE PAIN (PS 5-7) 04/13/20 08:00 04/15/20 11:07 Vancomycin HCl 750 mg/IV Miscellaneous Supplies 1 each/ Dextrose 275 ml @ 270 mls/hr Q12H IV 04/13/20 09:00 04/14/20 22:02 Allergies Coded Allergies: No Known Allergies (Unverified , 03/01/20) Socorro Panchal MD Apr 15, 2020 18:54
[2020-04-15 22:00] VITALS: BP 167/66
[2020-04-16] MEDS: SODIUM CHLORIDE 0.9% INJ 10 ML SYR IV SCH ×2 (05:06→17:03)
[2020-04-16 06:00] VITALS: BP 156/66
[2020-04-16 07:24] LABS: HEMOGLOBIN 10.4 g/dl (13.5-17.5); MEAN CORPUSCULAR HEMOGLOBIN 29.7 pg (27.0-33.0); MEAN CORPUSCULAR HGB CONC 32.5 g/dl (32.0-36.5); MEAN CORPUSCULAR VOLUME 91.4 fl (80.0-96.0); PLATELET COUNT, AUTOMATED 255 10^3/uL (150-450); WHITE BLOOD COUNT 5.3 10^3/uL (4.0-10.0)
[2020-04-16 07:49] LABS: ALBUMIN 2.8 GM/DL (3.2-5.2); ALT/SGPT 20 U/L (12-78); BILIRUBIN,TOTAL 0.7 MG/DL (0.2-1.0); BLOOD UREA NITROGEN 12 MG/DL (7-18); CALCIUM LEVEL 9.4 MG/DL (8.8-10.2); CARBON DIOXIDE LEVEL 28 MEQ/L (21-32); CHLORIDE LEVEL 98 MEQ/L (98-107); CREATININE FOR GFR 0.93 MG/DL (0.70-1.30); GLOMERULAR FILTRATION RATE > 60.0 (>49); GLUCOSE, FASTING 242 MG/DL (70-100); POTASSIUM SERUM 4.2 MEQ/L (3.5-5.1); SODIUM LEVEL 134 MEQ/L (136-145); TOTAL PROTEIN 6.6 GM/DL (6.4-8.2)
[2020-04-16] MEDS ORDERED: LEVEMIR (INSULIN DETEMIR) 1 UNITS/0.01ML SC SCH (09:00)
[2020-04-16] MEDS: HumaLOG INSULIN (NovoLOG) PER UNIT SC SCH ×4 (09:29→21:35)
[2020-04-16] MEDS: VANCOMYCIN HCL 750 MG, VIAL MATE ADAPTER 1 EACH in D5W 250 ML IV SCH (09:59)
[2020-04-16] MEDS: ENOXAPARIN 40MG/0.4ML SYRINGE (J1650 PER 10MG) SC SCH (10:00)
[2020-04-16] MEDS: DOCUSATE SODIUM 100MG CAPSULE PO SCH ×2 (10:00→21:34)
[2020-04-16] MEDS ORDERED: LACTULOSE 20 GM/30 ML SYRUP UD PO ONE (12:15)
[2020-04-16 14:00] VITALS: BP 130/68
[2020-04-16 15:09] LABS: C REACTIVE PROTEIN QUANTITATIV 6.32 MG/DL (0.00-0.30)
--- NOTE | 2020-04-16 17:53 | REP ---
PROCEDURE NAME: PICC LINE INSERTION W/SITERITE CLINICAL INFORMATION: poor access, on IV abx. COMPARISON: None. PROCEDURE DESCRIPTION: The procedure was performed by ANIBAL Pierce, under the direct supervision of Dr. Lee. The risks and benefits of the procedure were explained to the patient and an informed consent was obtained both verbally and written. Directly prior to the start of the procedure a formal time-out was completed in the procedure room. The right lateral brachial vein was localized using ultrasound guidance. The skin was prepped and draped in sterile fashion. One mL of 1% lidocaine 10 mg/mL was used as a local anesthetic. Using ultrasound guidance the right lateral brachial vein was cannulated, and a 0.018 guidewire was inserted and attempted to advance to the level of the SVC. The needle was removed and a 4.5 [place] dilator and peel-away sheath was inserted over the guidewire. Because the wire was unable to be advanced 8 mL of a 50/50 solution containing sterile saline and Isovue 300 was injected through the dilator. 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 A 4.5 [place] single lumen catheter was cut to a length of 12 cm technically making this a midline. The dilator was removed and the catheter was inserted over the guidewire with the tip ending at the level of the axilla. The peel-away sheath was removed and the catheter was flushed with heparinized saline as per hospital protocol. The catheter was affixed to the skin and a sterile dressing was applied. The patient tolerated the procedure well and there were no immediate complications. CONCLUSION: Attempted PICC line insertion that was switched to a midline due to right subclavian vein occlusion. 0.8 minutes of fluoroscopy time was utilized for this procedure. Some fluoroscopic images are performed with last image hold technology. These images require no additional radiation. <Electronically signed by Aline Storm > 04/15/20 [id number] <Electronically signed by Kevin Lee > 04/16/20 [id number]
--- NOTE | 2020-04-16 19:59 | IPNPDOC ---
Date Seen The patient was seen on 04/16/20. Progress Note SUBJECTIVE: PICC placed. Dr. Ernandez suggested zyvox, so switched to that today. PT: will benefit from cont services while here. Restarted many of patient's home meds that were not resumed earlier. Denies chest pain, n/v/d, shortness of breath. OBJECTIVE: PHYSICAL EXAMINATION: VITAL SIGNS: please see below General: NAD, comfortable HEENT: PERRLA, EOMI, sclerae clear Neck: supple, normal ROM, no JVD Respiratory: lungs CTAB, no wheeze, no rales, no crackles CVS: RRR, normal S1, S2, no murmurs Abdo: soft, no masses, no hepatosplenomegaly, BS+, no rebound tenderness Extremities: no edema, pulses 2+ MSK: bilateral BKAs. R stump suture skin erythematous, nontender to touch, non purulent- swelling and erythema appears to be improving slowly. Stitches in place. no fluctuant masses. Neuro: no focal neuro deficits, moving all 4 extremities, CN2-12 intact. Strength 5/5 in all 4 extremities. No nystagmus. Psych: calm, cooperative, AAO x 3 LABORATORY DATA: See below. IMAGING: Right knee XR: Status post below-knee amputation. No acute abnormality. MICROBIOLOGY: BCx x 2 sets: NG to date ASSESSMENT: 59 yo M with type 1 DM, bilateral BKAs admitted to hospitalist service for management of sepsis 2/2 cellulitis of R BKA stump and hypoglycemia. PLAN: #Cellulitis of R BKA stump -WBC wnl, afebrile -Per patient, vascular surgery has been monitoring his cellulitis as o/p. Failed o/p treatment. -BCx NG -Discussed case with Dr. Boss who agreed with current care, recommended continued rehab as patient keeps falling at home, putting integrity of stump at risk with falls. He has had similar issue in the past with left DKA stump. -PT: Con't to need to improve with transfers using Left prosthesis and SPT; declines commode use and getting to chair. Pt notes he was to see Bryan Zamora on sunday in the afternoon; if pt is unable to get to his office pt would benefit from visit in house as ill fitting prosthesis on Left caused fall -Will discuss with SW on 04/19/20 how to arrange the fitting at the hospital after weekend -D/dominic vancomycin IV (Day 07/07) and switched to PO zyvox today per Dr. Ernandez -Daily CBC #Migraine headaches -Waxes and wanes -Fioricet PRN #Type 1 DM -BS 200-420, uncontrolled -Anticipate BS increasing further on home prednisone restarted -increased levemir further to 30 U QAM, c/w ISS, FS AC/HS, consistent carb diet -Hypoglycemic precautions #Chronic Deconditioning -Per vascular surgery PA, patient has had issues at home with ambulation -PT: see above -Goal is home with services #Peripheral vascular disease s/p right above knee amputation -Follows closely with Dr. Boss's office. will need f/u on d/c -C/w ASA/plavix #Adrenal insufficiency -C/w prednisone #Glaucoma -C/w home meds #BPH/hx urinary retention -C/w home meds #DVT ppx -Lovenox Resolved issues: Sepsis 2/2 to cellulitis of right stump Nausea likely 2/2 to migraine headaches DISPOSITION: Currently acute inpatient. Plan is home with services likely after the weekend. VS, I&O, 24H, Fishbone Vital Signs/I&O Vital Signs Date Time Temp Pulse Resp B/P (MAP) Pulse Ox O2 Delivery O2 Flow Rate FiO2 04/16/20 14:00 98.6 80 20 130/68 (88) 96 Room Air I&O- Last 24 Hours up to 6 AM 04/16/20 05:59 Intake Total 650 ml Output Total 1150 ml Balance -500 ml Laboratory Data 24H LABS Laboratory Tests 2 04/15/20 23:14: Bedside Glucose (Misc Panel) 362H 04/16/20 06:28: Bedside Glucose (Misc Panel) 246H, Nucleated Red Blood Cells % (auto) 0.0, Anion Gap 8, Glomerular Filtration Rate > 60.0, Calcium Level 9.4, Total Bilirubin 0.7, Aspartate Amino Transf (AST/SGOT) 16, Alanine Aminotransferase (ALT/SGPT) 20, Alkaline Phosphatase 107, C-Reactive Protein, Quantitative 6.32H, Total Protein 6.6, Albumin 2.8L, Albumin/Globulin Ratio 0.7, Random Vancomycin Level 14.0 04/16/20 12:42: Bedside Glucose (Misc Panel) 435H 04/16/20 16:50: Bedside Glucose (Misc Panel) 326H CBC/BMP Laboratory Tests 04/16/20 06:28 Microbiology Microbiology 04/12/20 Respiratory Virus Panel (PCR) (DARLINE) - Final, Complete 04/12/20 Blood Culture - Preliminary, Resulted No Growth after 72 hours. All specime... 04/12/20 Blood Culture - Preliminary, Resulted No Growth after 72 hours. All specime... Current Medications Current Medications Medications (Trade) Dose Ordered Sig/Vladimir Route PRN Reason Start Time Stop Time Status Last Admin Dose Admin Acetaminophen (Tylenol Tab) 650 mg Q4H PRN PO PAIN OR FEVER 04/13/20 02:30 04/14/20 05:30 Acetaminophen/ Butalbital/ Caffeine (Fioricet) 1 ea Q6HP PRN PO HEADACHE 04/14/20 10:00 04/14/20 10:03 Al Hydrox/Mg Hydrox/Simethicone (Mylanta) 30 ml DAILY PRN PO DYSPEPSIA 04/13/20 02:30 Ceftriaxone Sodium 2 gm/ Dextrose 50 ml @ 100 mls/hr Q12H IV 04/13/20 06:00 04/14/20 13:21 DC 04/14/20 05:30 Dextrose (Dextrose 50%) 25 ml ASDIRECTED PRN IV SEE LABEL COMMENTS 04/13/20 02:30 Dextrose (Dextrose 50%) 50 ml STAT STAT IV 04/12/20 21:33 04/12/20 21:34 DC 04/12/20 22:25 Dextrose (Dextrose 50%) 50 ml STAT STAT IV 04/12/20 23:47 04/12/20 23:48 DC 04/12/20 23:59 Dextrose/Sodium Chloride 1,000 ml @ 75 mls/hr [id number] IV 04/13/20 00:30 04/13/20 02:29 DC 04/13/20 00:57 Dextrose/Sodium Chloride 1,000 ml @ 75 mls/hr [id number] IV 04/13/20 02:30 04/13/20 06:19 DC 04/13/20 02:32 Dextrose/Sodium Chloride 1,000 ml @ 150 mls/hr Q6H40M IV 04/12/20 22:30 04/13/20 00:36 DC 04/12/20 22:28 Docusate Sodium (Colace) 100 mg BID PO 04/13/20 09:00 04/16/20 10:00 Enoxaparin Sodium (Lovenox) 40 mg DAILY SC 04/13/20 09:00 04/16/20 10:00 Glucagon (Glucagon) 1 mg ASDIRECTED PRN SC SEE LABEL COMMENTS 04/13/20 02:30 Glucose (Glucose) 16 GM ASDIRECTED PRN PO SEE LABEL COMMENTS 04/13/20 02:30 Heparin Sodium (Heparin (Flush)) 100 units ASDIRECTED PRN IV SEE LABEL COMMENTS 04/15/20 18:45 04/15/20 21:31 Heparin Sodium (Heparin (Flush)) 100 units BID@0600,1800 IV 04/16/20 06:00 04/16/20 17:03 Home Med (Med Rec Complete!) ASDIRECTED XX 04/13/20 03:45 04/13/20 04:01 DC Insulin Detemir (Levemir Insulin) 8 units QAM SC 04/14/20 09:00 04/14/20 13:29 DC Insulin Detemir (Levemir Insulin) 12 units QAM SC 04/15/20 09:00 04/15/20 09:02 DC 04/15/20 08:57 Insulin Detemir (Levemir Insulin) 20 units QAM SC 04/16/20 09:00 Insulin Human Lispro (HumaLOG INSULIN) SEE PROTOCOL TABLE AC SC 04/13/20 07:30 04/16/20 17:03 Insulin Human Lispro (HumaLOG INSULIN) SEE PROTOCOL TABLE QHS SC 04/13/20 21:00 04/15/20 23:44 Magnesium Hydroxide (Milk Of Magnesia) 30 ml DAILY PRN PO CONSTIPATION 04/13/20 02:30 04/14/20 16:52 Metoclopramide HCl (REGLAN INJection) 5 mg Q6HP PRN IV NAUSEA OR VOMITING 04/13/20 22:15 04/13/20 22:15 Ondansetron HCl (Zofran Odt) 4 mg Q6HP PRN PO NAUSEA OR VOMITING 04/13/20 08:00 04/13/20 18:41 Senna (Senokot) 2 tab QHS PO 04/16/20 21:00 Sodium Chloride 1,000 ml @ 150 mls/hr Q6H40M IV 04/12/20 20:11 04/13/20 00:36 DC 04/12/20 20:53 Sodium Chloride (Saline Lock Flush) 10 ml ASDIRECTED PRN IV SEE LABEL COMMENTS 04/15/20 18:45 04/15/20 20:12 Sodium Chloride (Saline Lock Flush) 10 ml BID@0600,1800 IV 04/16/20 06:00 04/16/20 17:03 Tramadol HCl (Ultram) 50 mg Q6HP PRN PO MODERATE PAIN (PS 5-7) 04/13/20 08:00 04/15/20 11:07 Vancomycin HCl 750 mg/IV Miscellaneous Supplies 1 each/ Dextrose 275 ml @ 270 mls/hr Q12H IV 04/13/20 09:00 04/20/20 21:00 04/16/20 09:59 Allergies Coded Allergies: No Known Allergies (Unverified , 03/01/20) Socorro Panchal MD Apr 16, 2020 19:59
[2020-04-16] MEDS: LINEZOLID 600MG TABLET (ZYVOX) PO SCH (21:34)
[2020-04-16] MEDS: PANTOPRAZOLE 40MG TAB (PROTONIX) PO SCH (21:34)
[2020-04-16] MEDS: BRIMONIDINE 0.1% OPHTH SOLN 5 ML OS SCH (21:34)
[2020-04-16] MEDS: SENNA 8.6 MG TAB (SENOKOT) PO SCH (21:34)
[2020-04-16] MEDS: TAMSULOSIN 0.4 MG CAP PO SCH (21:34)
[2020-04-16] MEDS: GABAPENTIN 300 MG CAP PO SCH (21:35)
[2020-04-16 22:00] VITALS: BP 136/59
[2020-04-17] MEDS: SODIUM CHLORIDE 0.9% INJ 10 ML SYR IV SCH ×2 (05:11→18:05)
[2020-04-17 06:00] VITALS: BP 136/67
[2020-04-17 07:17] LABS: HEMATOCRIT 31.1 % (42.0-52.0); MEAN CORPUSCULAR HEMOGLOBIN 29.3 pg (27.0-33.0); MEAN CORPUSCULAR HGB CONC 32.2 g/dl (32.0-36.5); MEAN CORPUSCULAR VOLUME 91.2 fl (80.0-96.0); PLATELET COUNT, AUTOMATED 244 10^3/uL (150-450); RED BLOOD COUNT 3.41 10^6/uL (4.30-6.10); WHITE BLOOD COUNT 5.7 10^3/uL (4.0-10.0)
[2020-04-17 07:36] LABS: ALBUMIN 2.9 GM/DL (3.2-5.2); ALT/SGPT 23 U/L (12-78); BILIRUBIN,TOTAL 0.5 MG/DL (0.2-1.0); BLOOD UREA NITROGEN 14 MG/DL (7-18); CALCIUM LEVEL 8.7 MG/DL (8.8-10.2); CARBON DIOXIDE LEVEL 25 MEQ/L (21-32); CHLORIDE LEVEL 99 MEQ/L (98-107); CREATININE FOR GFR 1.06 MG/DL (0.70-1.30); GLOMERULAR FILTRATION RATE > 60.0 (>49); GLUCOSE, FASTING 336 MG/DL (70-100); POTASSIUM SERUM 4.7 MEQ/L (3.5-5.1); SODIUM LEVEL 135 MEQ/L (136-145); TOTAL PROTEIN 6.2 GM/DL (6.4-8.2)
[2020-04-17] MEDS: HumaLOG INSULIN (NovoLOG) PER UNIT SC SCH ×4 (08:22→21:22)
[2020-04-17] MEDS: BRIMONIDINE 0.1% OPHTH SOLN 5 ML OS SCH ×2 (08:23→21:22)
[2020-04-17] MEDS: ENOXAPARIN 40MG/0.4ML SYRINGE (J1650 PER 10MG) SC SCH (08:23)
[2020-04-17] MEDS: DOCUSATE SODIUM 100MG CAPSULE PO SCH ×2 (08:24→21:21)
[2020-04-17] MEDS: LINEZOLID 600MG TABLET (ZYVOX) PO SCH ×2 (08:24→21:21)
[2020-04-17] MEDS: ASPIRIN 81 MG ENTERIC TAB PO SCH (08:24)
[2020-04-17] MEDS: predniSONE 5 MG TAB PO SCH (08:24)
[2020-04-17] MEDS: ATORVASTATIN 20 MG TAB PO SCH (08:24)
[2020-04-17] MEDS: PYRIDOSTIGMINE 60 MG TAB PO SCH (08:24)
[2020-04-17] MEDS: CitaloPRAM (CeleXA) 20 MG TAB PO SCH (08:24)
[2020-04-17] MEDS: MULTIVITAMINS/MINERALS THERAP 1 TAB PO SCH (08:24)
[2020-04-17] MEDS: predniSONE 1 MG TAB PO SCH (08:24)
[2020-04-17] MEDS: GABAPENTIN 300 MG CAP PO SCH ×2 (08:24→21:21)
[2020-04-17] MEDS: PANTOPRAZOLE 40MG TAB (PROTONIX) PO SCH ×2 (08:24→21:21)
[2020-04-17] MEDS: FINASTERIDE 5 MG TAB PO SCH (08:24)
[2020-04-17] MEDS: CLOPIDOGREL 75 MG TAB PO SCH (08:24)
[2020-04-17] MEDS ORDERED: LEVEMIR (INSULIN DETEMIR) 1 UNITS/0.01ML SC SCH (09:00)
[2020-04-17 14:00] VITALS: BP 136/61
--- NOTE | 2020-04-17 19:49 | IPNPDOC ---
Date Seen The patient was seen on 04/17/20. Progress Note SUBJECTIVE: Stump cellulitis, tenderness continues to improve. Denies chest pain, n/v/d, shortness of breath. OBJECTIVE: PHYSICAL EXAMINATION: VITAL SIGNS: please see below General: NAD, comfortable HEENT: PERRLA, EOMI, sclerae clear Neck: supple, normal ROM, no JVD Respiratory: lungs CTAB, no wheeze, no rales, no crackles CVS: RRR, normal S1, S2, no murmurs Abdo: soft, no masses, no hepatosplenomegaly, BS+, no rebound tenderness Extremities: no edema, pulses 2+ MSK: bilateral BKAs. R stump suture skin erythematous, nontender to touch, non purulent- swelling and erythema appears to be improving slowly. Stitches in place. no fluctuant masses. Neuro: no focal neuro deficits, moving all 4 extremities, CN2-12 intact. Strength 5/5 in all 4 extremities. No nystagmus. Psych: calm, cooperative, AAO x 3 LABORATORY DATA: See below. IMAGING: Right knee XR: Status post below-knee amputation. No acute abnormality. MICROBIOLOGY: BCx x 2 sets: NG to date ASSESSMENT: 59 yo M with type 1 DM, bilateral BKAs admitted to hospitalist service for management of sepsis 2/2 cellulitis of R BKA stump and hypoglycemia. PLAN: #Cellulitis of R BKA stump -WBC wnl, afebrile -Per patient, vascular surgery has been monitoring his cellulitis as o/p. Failed o/p treatment. -BCx NG -Discussed case with Dr. Boss who agreed with current care, recommended continued rehab as patient keeps falling at home, putting integrity of stump at risk with falls. He has had similar issue in the past with left DKA stump. -PT: Con't to need to improve with transfers using Left prosthesis and SPT; declines commode use and getting to chair. Pt notes he was to see Bryan Zamora on sunday in the afternoon; if pt is unable to get to his office pt would benefit from visit in house as ill fitting prosthesis on Left caused fall -Will discuss with SW on 04/19/20 how to arrange the fitting at the hospital after weekend -D/dominic vancomycin IV (Day 07/07) and on PO zyvox (Day2) -Daily CBC #Migraine headaches -Stable over 24 hours -Waxes and wanes -Fioricet PRN #Type 1 DM -BS , uncontrolled 200-300's -Anticipate BS increasing further on home prednisone restarted -Levemir 38 U QAM, c/w ISS, FS AC/HS, consistent carb diet -Hypoglycemic precautions #Chronic Deconditioning -Per vascular surgery PA, patient has had issues at home with ambulation -PT: see above -Goal is home with services #Peripheral vascular disease s/p right above knee amputation -Follows closely with Dr. Boss's office. will need f/u on d/c -C/w ASA/plavix #Adrenal insufficiency -C/w prednisone #Glaucoma -C/w home meds #BPH/hx urinary retention -C/w home meds #DVT ppx -Lovenox Resolved issues: Sepsis 2/2 to cellulitis of right stump Nausea likely 2/2 to migraine headaches DISPOSITION: Currently acute inpatient. Plan is home with services likely after the weekend. VS, I&O, 24H, Fishbone Vital Signs/I&O Vital Signs Date Time Temp Pulse Resp B/P (MAP) Pulse Ox O2 Delivery O2 Flow Rate FiO2 04/17/20 14:00 98.8 74 18 136/61 (86) 95 Room Air I&O- Last 24 Hours up to 6 AM 04/17/20 06:00 Intake Total 1120 ml Output Total 575 ml Balance 545 ml Laboratory Data 24H LABS Laboratory Tests 2 04/16/20 20:09: Bedside Glucose (Misc Panel) 262H 04/17/20 06:12: Nucleated Red Blood Cells % (auto) 0.0, Anion Gap 11, Glomerular Filtration Rate > 60.0, Calcium Level 8.7L, Total Bilirubin 0.5, Aspartate Amino Transf (AST/SGOT) 21, Alanine Aminotransferase (ALT/SGPT) 23, Alkaline Phosphatase 112, Total Protein 6.2L, Albumin 2.9L, Albumin/Globulin Ratio 0.9 04/17/20 11:41: Bedside Glucose (Misc Panel) 271H 04/17/20 16:22: Bedside Glucose (Misc Panel) 372H CBC/BMP Laboratory Tests 04/17/20 06:12 Microbiology Microbiology 04/12/20 Respiratory Virus Panel (PCR) (DARLINE) - Final, Complete 04/12/20 Blood Culture - Preliminary, Resulted No Growth after 72 hours. All specime... 04/12/20 Blood Culture - Preliminary, Resulted No Growth after 72 hours. All specime... Current Medications Current Medications Medications (Trade) Dose Ordered Sig/Vladimir Route PRN Reason Start Time Stop Time Status Last Admin Dose Admin Acetaminophen (Tylenol Tab) 650 mg Q4H PRN PO PAIN OR FEVER 04/13/20 02:30 04/14/20 05:30 Acetaminophen/ Butalbital/ Caffeine (Fioricet) 1 ea Q6HP PRN PO HEADACHE 04/14/20 10:00 04/14/20 10:03 Al Hydrox/Mg Hydrox/Simethicone (Mylanta) 30 ml DAILY PRN PO DYSPEPSIA 04/13/20 02:30 Aspirin (Ecotrin) 81 mg DAILY PO 04/17/20 09:00 04/17/20 08:24 Atorvastatin Calcium (Lipitor) 40 mg DAILY PO 04/17/20 09:00 04/17/20 08:24 Brimonidine Tartrate (Alphagan P 0.1%) 1 drop BID OS 04/16/20 21:00 04/17/20 08:23 Ceftriaxone Sodium 2 gm/ Dextrose 50 ml @ 100 mls/hr Q12H IV 04/13/20 06:00 04/14/20 13:21 DC 04/14/20 05:30 Citalopram Hydrobromide (CeleXA) 40 mg DAILY PO 04/17/20 09:00 04/17/20 08:24 Clopidogrel Bisulfate (PLAVix) 75 mg DAILY PO 04/17/20 09:00 04/17/20 08:24 Dextrose (Dextrose 50%) 25 ml ASDIRECTED PRN IV SEE LABEL COMMENTS 04/13/20 02:30 Dextrose (Dextrose 50%) 50 ml STAT STAT IV 04/12/20 21:33 04/12/20 21:34 DC 04/12/20 22:25 Dextrose (Dextrose 50%) 50 ml STAT STAT IV 04/12/20 23:47 04/12/20 23:48 DC 04/12/20 23:59 Dextrose/Sodium Chloride 1,000 ml @ 75 mls/hr [id number] IV 04/13/20 00:30 04/13/20 02:29 DC 04/13/20 00:57 Dextrose/Sodium Chloride 1,000 ml @ 75 mls/hr [id number] IV 04/13/20 02:30 04/13/20 06:19 DC 04/13/20 02:32 Dextrose/Sodium Chloride 1,000 ml @ 150 mls/hr Q6H40M IV 04/12/20 22:30 04/13/20 00:36 DC 04/12/20 22:28 Docusate Sodium (Colace) 100 mg BID PO 04/13/20 09:00 04/17/20 08:24 Enoxaparin Sodium (Lovenox) 40 mg DAILY SC 04/13/20 09:00 04/17/20 08:23 Finasteride (Proscar) 5 mg DAILY PO 04/17/20 09:00 04/17/20 08:24 Gabapentin (Neurontin) 300 mg BID PO 04/16/20 21:00 04/17/20 08:24 Glucagon (Glucagon) 1 mg ASDIRECTED PRN SC SEE LABEL COMMENTS 04/13/20 02:30 Glucose (Glucose) 16 GM ASDIRECTED PRN PO SEE LABEL COMMENTS 04/13/20 02:30 Heparin Sodium (Heparin (Flush)) 100 units ASDIRECTED PRN IV SEE LABEL COMMENTS 04/15/20 18:45 04/15/20 21:31 Heparin Sodium (Heparin (Flush)) 100 units BID@0600,1800 IV 04/16/20 06:00 04/17/20 18:05 Home Med (Med Rec Complete!) ASDIRECTED XX 04/13/20 03:45 04/13/20 04:01 DC Insulin Detemir (Levemir Insulin) 8 units QAM SC 04/14/20 09:00 04/14/20 13:29 DC Insulin Detemir (Levemir Insulin) 12 units QAM SC 04/15/20 09:00 04/15/20 09:02 DC 04/15/20 08:57 Insulin Detemir (Levemir Insulin) 20 units QAM SC 04/16/20 09:00 04/16/20 19:55 DC Insulin Detemir (Levemir Insulin) 30 units QAM SC 04/17/20 09:00 04/17/20 08:23 Insulin Human Lispro (HumaLOG INSULIN) SEE PROTOCOL TABLE AC SC 04/13/20 07:30 04/17/20 18:05 Insulin Human Lispro (HumaLOG INSULIN) SEE PROTOCOL TABLE QHS SC 04/13/20 21:00 04/16/20 21:35 Linezolid (Zyvox) 600 mg BID PO 04/16/20 21:00 04/17/20 08:24 Magnesium Hydroxide (Milk Of Magnesia) 30 ml DAILY PRN PO CONSTIPATION 04/13/20 02:30 04/14/20 16:52 Metoclopramide HCl (REGLAN INJection) 5 mg Q6HP PRN IV NAUSEA OR VOMITING 04/13/20 22:15 04/13/20 22:15 Multivitamins (Theragram-M) 1 tab DAILY PO 04/17/20 09:00 04/17/20 08:24 Ondansetron HCl (Zofran Odt) 4 mg Q6HP PRN PO NAUSEA OR VOMITING 04/13/20 08:00 04/13/20 18:41 Pantoprazole Sodium (Protonix) 40 mg BID PO 04/16/20 21:00 04/17/20 08:24 Prednisone (Deltasone) 3 mg DAILY PO 04/17/20 09:00 04/17/20 08:24 Prednisone (Deltasone) 5 mg DAILY PO 04/17/20 09:00 04/17/20 08:24 Pyridostigmine [place] (Mestinon) 60 mg DAILY PO 04/17/20 09:00 04/17/20 08:24 Senna (Senokot) 2 tab QHS PO 04/16/20 21:00 04/16/20 21:34 Sodium Chloride 1,000 ml @ 150 mls/hr Q6H40M IV 04/12/20 20:11 04/13/20 00:36 DC 04/12/20 20:53 Sodium Chloride (Saline Lock Flush) 10 ml ASDIRECTED PRN IV SEE LABEL COMMENTS 04/15/20 18:45 04/15/20 20:12 Sodium Chloride (Saline Lock Flush) 10 ml BID@0600,1800 IV 04/16/20 06:00 04/17/20 18:05 Tamsulosin HCl (Flomax) 0.4 mg QHS PO 04/16/20 21:00 04/16/20 21:34 Tramadol HCl (Ultram) 50 mg Q6HP PRN PO MODERATE PAIN (PS 5-7) 04/13/20 08:00 04/15/20 11:07 Vancomycin HCl 750 mg/IV Miscellaneous Supplies 1 each/ Dextrose 275 ml @ 270 mls/hr Q12H IV 04/13/20 09:00 04/16/20 19:49 DC 04/16/20 09:59 Allergies Coded Allergies: No Known Allergies (Unverified , 03/01/20) Socorro Panchal MD Apr 17, 2020 19:49
[2020-04-17] MEDS: TAMSULOSIN 0.4 MG CAP PO SCH (21:21)
[2020-04-17] MEDS: SENNA 8.6 MG TAB (SENOKOT) PO SCH (21:21)
[2020-04-17 22:00] VITALS: BP 131/62
[2020-04-18] MEDS: SODIUM CHLORIDE 0.9% INJ 10 ML SYR IV SCH ×2 (05:22→17:31)
[2020-04-18 06:00] VITALS: BP 126/66
[2020-04-18 07:30] LABS: HEMATOCRIT 31.3 % (42.0-52.0); HEMOGLOBIN 10.4 g/dl (13.5-17.5); MEAN CORPUSCULAR HEMOGLOBIN 29.9 pg (27.0-33.0); MEAN CORPUSCULAR HGB CONC 33.2 g/dl (32.0-36.5); MEAN CORPUSCULAR VOLUME 89.9 fl (80.0-96.0); PLATELET COUNT, AUTOMATED 256 10^3/uL (150-450); RED BLOOD COUNT 3.48 10^6/uL (4.30-6.10); WHITE BLOOD COUNT 5.9 10^3/uL (4.0-10.0)
[2020-04-18 08:01] LABS: ALBUMIN 3.1 GM/DL (3.2-5.2); ALT/SGPT 24 U/L (12-78); BILIRUBIN,TOTAL 0.4 MG/DL (0.2-1.0); BLOOD UREA NITROGEN 20 MG/DL (7-18); CALCIUM LEVEL 9.7 MG/DL (8.8-10.2); CARBON DIOXIDE LEVEL 29 MEQ/L (21-32); CHLORIDE LEVEL 100 MEQ/L (98-107); CREATININE FOR GFR 1.19 MG/DL (0.70-1.30); GLOMERULAR FILTRATION RATE > 60.0 (>49); GLUCOSE, FASTING 206 MG/DL (70-100); SODIUM LEVEL 138 MEQ/L (136-145); TOTAL PROTEIN 6.5 GM/DL (6.4-8.2)
[2020-04-18] MEDS: DOCUSATE SODIUM 100MG CAPSULE PO SCH ×2 (08:38→21:00)
[2020-04-18] MEDS: PYRIDOSTIGMINE 60 MG TAB PO SCH (08:38)
[2020-04-18] MEDS: FINASTERIDE 5 MG TAB PO SCH (08:38)
[2020-04-18] MEDS: CitaloPRAM (CeleXA) 20 MG TAB PO SCH (08:38)
[2020-04-18] MEDS: ATORVASTATIN 20 MG TAB PO SCH (08:38)
[2020-04-18] MEDS: predniSONE 5 MG TAB PO SCH (08:38)
[2020-04-18] MEDS: predniSONE 1 MG TAB PO SCH (08:38)
[2020-04-18] MEDS: CLOPIDOGREL 75 MG TAB PO SCH (08:38)
[2020-04-18] MEDS: LINEZOLID 600MG TABLET (ZYVOX) PO SCH ×2 (08:38→21:01)
[2020-04-18] MEDS: MULTIVITAMINS/MINERALS THERAP 1 TAB PO SCH (08:38)
[2020-04-18] MEDS: GABAPENTIN 300 MG CAP PO SCH ×2 (08:38→21:01)
[2020-04-18] MEDS: ASPIRIN 81 MG ENTERIC TAB PO SCH (08:38)
[2020-04-18] MEDS: PANTOPRAZOLE 40MG TAB (PROTONIX) PO SCH ×2 (08:38→21:02)
[2020-04-18] MEDS: BRIMONIDINE 0.1% OPHTH SOLN 5 ML OS SCH ×2 (08:39→21:03)
[2020-04-18] MEDS: ENOXAPARIN 40MG/0.4ML SYRINGE (J1650 PER 10MG) SC SCH (08:39)
[2020-04-18] MEDS: HumaLOG INSULIN (NovoLOG) PER UNIT SC SCH ×4 (08:40→21:00)
[2020-04-18] MEDS ORDERED: LEVEMIR (INSULIN DETEMIR) 1 UNITS/0.01ML SC SCH ×2 (09:00)
[2020-04-18 14:00] VITALS: BP 105/67
--- NOTE | 2020-04-18 16:28 | IPNPDOC ---
Date Seen The patient was seen on 04/18/20. Progress Note SUBJECTIVE: Stump cellulitis, tenderness continues to improve. Denies chest pain, n/v/d, shortness of breath. OBJECTIVE: PHYSICAL EXAMINATION: VITAL SIGNS: please see below General: NAD, comfortable HEENT: PERRLA, EOMI, sclerae clear Neck: supple, normal ROM, no JVD Respiratory: lungs CTAB, no wheeze, no rales, no crackles CVS: RRR, normal S1, S2, no murmurs Abdo: soft, no masses, no hepatosplenomegaly, BS+, no rebound tenderness Extremities: no edema, pulses 2+ MSK: bilateral BKAs. R stump suture skin erythematous, slightly tender to touch, non purulent- swelling and erythema further improved.. Stitches in place. Neuro: no focal neuro deficits, moving all 4 extremities, CN2-12 intact. Strength 5/5 in all 4 extremities. No nystagmus. Psych: calm, cooperative, AAO x 3 LABORATORY DATA: See below. IMAGING: Right knee XR: Status post below-knee amputation. No acute abnormality. MICROBIOLOGY: BCx x 2 sets: NG to date ASSESSMENT: 59 yo M with type 1 DM, bilateral BKAs admitted to hospitalist service for management of sepsis 2/2 cellulitis of R BKA stump and hypoglycemia . PLAN: #Cellulitis of R BKA stump -WBC wnl, afebrile -Per patient, vascular surgery has been monitoring his cellulitis as o/p. Failed o/p treatment. -BCx NG -Discussed case with Dr. Boss who agreed with current care, recommended continued rehab as patient keeps falling at home, putting integrity of stump at risk with falls. He has had similar issue in the past with left DKA stump. -PT: Con't to need to improve with transfers using Left prosthesis and SPT; declines commode use and getting to chair. Pt notes he was to see Bryan Zamora on 04/19/20 in the afternoon; if pt is unable to get to his office pt would benefit from visit in house as ill fitting prosthesis on Left caused fall -Will discuss with SW on 04/19/20 if fitting at the hospital can be done here after weekend -D/dominic vancomycin IV (completed 4 days ) and now on PO zyvox (Day 3). Needs 3 more days to complete 10 day course of abx. -Daily CBC #Migraine headaches -Stable over 24 hours -Waxes and wanes -Fioricet PRN #Type 1 DM -BS , uncontrolled in 300's -BS increasing further on home prednisone restarted -Levemir increased to 48 U QAM, c/w ISS, FS AC/HS, consistent carb diet -Hypoglycemic precautions #Chronic Deconditioning -Per vascular surgery PA, patient has had issues at home with ambulation -PT: see above -Goal is home with services #Peripheral vascular disease s/p right above knee amputation -Follows closely with Dr. Boss's office. will need f/u on d/c -C/w ASA/plavix #Adrenal insufficiency -C/w prednisone #Glaucoma -C/w home meds #BPH/hx urinary retention -C/w home meds #DVT ppx -Lovenox Resolved issues: Sepsis 2/2 to cellulitis of right stump Nausea likely 2/2 to migraine headaches DISPOSITION: Currently acute inpatient. Plan is home with services likely after the weekend. VS, I&O, 24H, Fishbone Vital Signs/I&O Vital Signs Date Time Temp Pulse Resp B/P (MAP) Pulse Ox O2 Delivery O2 Flow Rate FiO2 04/18/20 14:00 98.2 69 19 105/67 (80) 98 Room Air I&O- Last 24 Hours up to 6 AM 04/18/20 06:00 Intake Total 1515 ml Output Total 550 ml Balance 965 ml Laboratory Data 24H LABS Laboratory Tests 2 04/17/20 21:03: Bedside Glucose (Misc Panel) 353H 04/18/20 06:15: Nucleated Red Blood Cells % (auto) 0.0, Anion Gap 9, Glomerular Filtration Rate > 60.0, Calcium Level 9.7, Total Bilirubin 0.4, Aspartate Amino Transf (AST/SGOT) 19, Alanine Aminotransferase (ALT/SGPT) 24, Alkaline Phosphatase 110, Total Protein 6.5, Albumin 3.1L, Albumin/Globulin Ratio 0.9 04/18/20 11:27: Bedside Glucose (Misc Panel) 386H CBC/BMP Laboratory Tests 04/18/20 06:15 Microbiology Microbiology 04/12/20 Respiratory Virus Panel (PCR) (DARLINE) - Final, Complete 04/12/20 Blood Culture - Final, Complete NO GROWTH AFTER 5 DAYS 04/12/20 Blood Culture - Final, Complete NO GROWTH AFTER 5 DAYS Current Medications Current Medications Medications (Trade) Dose Ordered Sig/Vladimir Route PRN Reason Start Time Stop Time Status Last Admin Dose Admin Acetaminophen (Tylenol Tab) 650 mg Q4H PRN PO PAIN OR FEVER 04/13/20 02:30 04/14/20 05:30 Acetaminophen/ Butalbital/ Caffeine (Fioricet) 1 ea Q6HP PRN PO HEADACHE 04/14/20 10:00 04/14/20 10:03 Al Hydrox/Mg Hydrox/Simethicone (Mylanta) 30 ml DAILY PRN PO DYSPEPSIA 04/13/20 02:30 Aspirin (Ecotrin) 81 mg DAILY PO 04/17/20 09:00 04/18/20 08:38 Atorvastatin Calcium (Lipitor) 40 mg DAILY PO 04/17/20 09:00 04/18/20 08:38 Brimonidine Tartrate (Alphagan P 0.1%) 1 drop BID OS 04/16/20 21:00 04/18/20 08:39 Ceftriaxone Sodium 2 gm/ Dextrose 50 ml @ 100 mls/hr Q12H IV 04/13/20 06:00 04/14/20 13:21 DC 04/14/20 05:30 Citalopram Hydrobromide (CeleXA) 40 mg DAILY PO 04/17/20 09:00 04/18/20 08:38 Clopidogrel Bisulfate (PLAVix) 75 mg DAILY PO 04/17/20 09:00 04/18/20 08:38 Dextrose (Dextrose 50%) 25 ml ASDIRECTED PRN IV SEE LABEL COMMENTS 04/13/20 02:30 Dextrose (Dextrose 50%) 50 ml STAT STAT IV 04/12/20 21:33 04/12/20 21:34 DC 04/12/20 22:25 Dextrose (Dextrose 50%) 50 ml STAT STAT IV 04/12/20 23:47 04/12/20 23:48 DC 04/12/20 23:59 Dextrose/Sodium Chloride 1,000 ml @ 75 mls/hr [id number] IV 04/13/20 00:30 04/13/20 02:29 DC 04/13/20 00:57 Dextrose/Sodium Chloride 1,000 ml @ 75 mls/hr [id number] IV 04/13/20 02:30 04/13/20 06:19 DC 04/13/20 02:32 Dextrose/Sodium Chloride 1,000 ml @ 150 mls/hr Q6H40M IV 04/12/20 22:30 04/13/20 00:36 DC 04/12/20 22:28 Docusate Sodium (Colace) 100 mg BID PO 04/13/20 09:00 04/18/20 08:38 Enoxaparin Sodium (Lovenox) 40 mg DAILY SC 04/13/20 09:00 04/18/20 08:39 Finasteride (Proscar) 5 mg DAILY PO 04/17/20 09:00 04/18/20 08:38 Gabapentin (Neurontin) 300 mg BID PO 04/16/20 21:00 04/18/20 08:38 Glucagon (Glucagon) 1 mg ASDIRECTED PRN SC SEE LABEL COMMENTS 04/13/20 02:30 Glucose (Glucose) 16 GM ASDIRECTED PRN PO SEE LABEL COMMENTS 04/13/20 02:30 Heparin Sodium (Heparin (Flush)) 100 units ASDIRECTED PRN IV SEE LABEL COMMENTS 04/15/20 18:45 04/15/20 21:31 Heparin Sodium (Heparin (Flush)) 100 units BID@0600,1800 IV 04/16/20 06:00 04/18/20 05:22 Home Med (Med Rec Complete!) ASDIRECTED XX 04/13/20 03:45 04/13/20 04:01 DC Insulin Detemir (Levemir Insulin) 8 units QAM SC 04/14/20 09:00 04/14/20 13:29 DC Insulin Detemir (Levemir Insulin) 12 units QAM SC 04/15/20 09:00 04/15/20 09:02 DC 04/15/20 08:57 Insulin Detemir (Levemir Insulin) 20 units QAM SC 04/16/20 09:00 04/16/20 19:55 DC Insulin Detemir (Levemir Insulin) 30 units QAM SC 04/17/20 09:00 04/17/20 19:49 DC 04/17/20 08:23 Insulin Detemir (Levemir Insulin) 38 units QAM SC 04/18/20 09:00 04/18/20 08:21 DC Insulin Detemir (Levemir Insulin) 40 units QAM SC 04/18/20 09:00 04/18/20 08:42 Insulin Human Lispro (HumaLOG INSULIN) SEE PROTOCOL TABLE AC SC 04/13/20 07:30 04/18/20 12:52 Insulin Human Lispro (HumaLOG INSULIN) SEE PROTOCOL TABLE QHS SC 04/13/20 21:00 04/17/20 21:22 Linezolid (Zyvox) 600 mg BID PO 04/16/20 21:00 04/18/20 08:38 Magnesium Hydroxide (Milk Of Magnesia) 30 ml DAILY PRN PO CONSTIPATION 04/13/20 02:30 04/14/20 16:52 Metoclopramide HCl (REGLAN INJection) 5 mg Q6HP PRN IV NAUSEA OR VOMITING 04/13/20 22:15 04/13/20 22:15 Multivitamins (Theragram-M) 1 tab DAILY PO 04/17/20 09:00 04/18/20 08:38 Ondansetron HCl (Zofran Odt) 4 mg Q6HP PRN PO NAUSEA OR VOMITING 04/13/20 08:00 04/13/20 18:41 Pantoprazole Sodium (Protonix) 40 mg BID PO 04/16/20 21:00 04/18/20 08:38 Prednisone (Deltasone) 3 mg DAILY PO 04/17/20 09:00 04/18/20 08:38 Prednisone (Deltasone) 5 mg DAILY PO 04/17/20 09:00 04/18/20 08:38 Pyridostigmine [place] (Mestinon) 60 mg DAILY PO 04/17/20 09:00 04/18/20 08:38 Senna (Senokot) 2 tab QHS PO 04/16/20 21:00 04/17/20 21:21 Sodium Chloride 1,000 ml @ 150 mls/hr Q6H40M IV 04/12/20 20:11 04/13/20 00:36 DC 04/12/20 20:53 Sodium Chloride (Saline Lock Flush) 10 ml ASDIRECTED PRN IV SEE LABEL COMMENTS 04/15/20 18:45 04/15/20 20:12 Sodium Chloride (Saline Lock Flush) 10 ml BID@0600,1800 IV 04/16/20 06:00 04/18/20 05:22 Tamsulosin HCl (Flomax) 0.4 mg QHS PO 04/16/20 21:00 04/17/20 21:21 Tramadol HCl (Ultram) 50 mg Q6HP PRN PO MODERATE PAIN (PS 5-7) 04/13/20 08:00 04/15/20 11:07 Vancomycin HCl 750 mg/IV Miscellaneous Supplies 1 each/ Dextrose 275 ml @ 270 mls/hr Q12H IV 04/13/20 09:00 04/16/20 19:49 DC 04/16/20 09:59 Allergies Coded Allergies: No Known Allergies (Unverified , 03/01/20) Socorro Panchal MD Apr 18, 2020 16:28
[2020-04-18] MEDS: SENNA 8.6 MG TAB (SENOKOT) PO SCH (21:00)
[2020-04-18] MEDS: TAMSULOSIN 0.4 MG CAP PO SCH (21:01)
[2020-04-19] MEDS: ACETAMINOPHEN TAB 650MG DOSE (2X325MG) PO PRN (03:16)
[2020-04-19 06:00] VITALS: BP 119/53
[2020-04-19 06:06] LABS: HEMATOCRIT 30.4 % (42.0-52.0); HEMOGLOBIN 9.9 g/dl (13.5-17.5); MEAN CORPUSCULAR HEMOGLOBIN 29.7 pg (27.0-33.0); MEAN CORPUSCULAR HGB CONC 32.6 g/dl (32.0-36.5); MEAN CORPUSCULAR VOLUME 91.3 fl (80.0-96.0); PLATELET COUNT, AUTOMATED 248 10^3/uL (150-450); RED BLOOD COUNT 3.33 10^6/uL (4.30-6.10); WHITE BLOOD COUNT 5.9 10^3/uL (4.0-10.0)
[2020-04-19] MEDS: SODIUM CHLORIDE 0.9% INJ 10 ML SYR IV SCH (06:12)
[2020-04-19 06:36] LABS: ALBUMIN 2.9 GM/DL (3.2-5.2); ALT/SGPT 25 U/L (12-78); BILIRUBIN,TOTAL 0.3 MG/DL (0.2-1.0); BLOOD UREA NITROGEN 22 MG/DL (7-18); CALCIUM LEVEL 8.8 MG/DL (8.8-10.2); CARBON DIOXIDE LEVEL 28 MEQ/L (21-32); CHLORIDE LEVEL 101 MEQ/L (98-107); CREATININE FOR GFR 1.29 MG/DL (0.70-1.30); GLOMERULAR FILTRATION RATE > 60.0 (>49); GLUCOSE, FASTING 264 MG/DL (70-100); SODIUM LEVEL 137 MEQ/L (136-145); TOTAL PROTEIN 6.1 GM/DL (6.4-8.2)
[2020-04-19] MEDS ORDERED: DOK1CAP7 PO (08:45)
[2020-04-19] MEDS ORDERED: TRAM50TA2 PO (08:45)
[2020-04-19] MEDS ORDERED: LINE1TAB6 PO (08:45)
[2020-04-19] MEDS ORDERED: SENN18TA PO (08:45)
[2020-04-19] MEDS: ATORVASTATIN 20 MG TAB PO SCH (08:52)
[2020-04-19] MEDS: PYRIDOSTIGMINE 60 MG TAB PO SCH (08:52)
[2020-04-19] MEDS: CitaloPRAM (CeleXA) 20 MG TAB PO SCH (08:52)
[2020-04-19] MEDS: ASPIRIN 81 MG ENTERIC TAB PO SCH (08:52)
[2020-04-19] MEDS: FINASTERIDE 5 MG TAB PO SCH (08:52)
[2020-04-19] MEDS: PANTOPRAZOLE 40MG TAB (PROTONIX) PO SCH (08:53)
[2020-04-19] MEDS: LINEZOLID 600MG TABLET (ZYVOX) PO SCH (08:53)
[2020-04-19] MEDS: CLOPIDOGREL 75 MG TAB PO SCH (08:53)
[2020-04-19] MEDS: predniSONE 5 MG TAB PO SCH (08:53)
[2020-04-19] MEDS: GABAPENTIN 300 MG CAP PO SCH (08:53)
[2020-04-19] MEDS: predniSONE 1 MG TAB PO SCH (08:53)
[2020-04-19] MEDS: MULTIVITAMINS/MINERALS THERAP 1 TAB PO SCH (08:53)
[2020-04-19] MEDS: DOCUSATE SODIUM 100MG CAPSULE PO SCH (08:54)
[2020-04-19] MEDS: HumaLOG INSULIN (NovoLOG) PER UNIT SC SCH ×2 (08:54→12:06)
[2020-04-19] MEDS: ENOXAPARIN 40MG/0.4ML SYRINGE (J1650 PER 10MG) SC SCH (08:55)
[2020-04-19] MEDS: BRIMONIDINE 0.1% OPHTH SOLN 5 ML OS SCH (08:55)
[2020-04-19] MEDS ORDERED: LEVEMIR (INSULIN DETEMIR) 1 UNITS/0.01ML SC SCH (09:00)
--- NOTE | 2020-04-19 17:15 | IPNPDOC ---
Date Seen The patient was seen on 04/19/20. Progress Note Patient seen and examined. He was admitted after several falls on his right BKA stump resulting in some cellulitis and skin breakdown in the medial aspect of the incision over the pretibial area. Unfortunately, this is going to make healing challenging, but the patient does look better on my inspection today. He still has a little bit of serous drainage which I expressed, and I removed all loose debris and scab at the skin edge. A clean this up significantly, and left the sutures intact. I think it is viable. There is definitely an improvement in cellulitis compared to heart was described to me a week ago. The patient is adamant that he is going home today. We went over his dressings extensively. Gauze Kerlix Mac wrapped elevation and stump protector when needed. He is agreeable to this plan. We'll see him in a week to see how things are going. It is is so important for him to keep this clean and dry. He is agreeable. We appreciate the opportunity to but despite the care of this patient. VS, I&O, 24H, [place] Vital Signs/I&O Vital Signs Date Time Temp Pulse Resp B/P (MAP) Pulse Ox O2 Delivery O2 Flow Rate FiO2 04/19/20 06:00 97.3 75 18 119/53 (75) 97 Room Air I&O- Last 24 Hours up to 6 AM 04/19/20 06:00 Intake Total 2770 ml Output Total 750 ml Balance 2020 ml Laboratory Data 24H LABS Laboratory Tests 2 04/18/20 20:00: Bedside Glucose (Misc Panel) 91 04/19/20 05:42: Nucleated Red Blood Cells % (auto) 0.0, Anion Gap 8, Glomerular Filtration Rate > 60.0, Calcium Level 8.8, Total Bilirubin 0.3, Aspartate Amino Transf (AST/SGOT) 20, Alanine Aminotransferase (ALT/SGPT) 25, Alkaline Phosphatase 106, Total Protein 6.1L, Albumin 2.9L, Albumin/Globulin Ratio 0.9 04/19/20 11:29: Bedside Glucose (Misc Panel) 410H CBC/BMP Laboratory Tests 04/19/20 05:42 Microbiology Microbiology 04/12/20 Respiratory Virus Panel (PCR) (DARLINE) - Final, Complete 04/12/20 Blood Culture - Final, Complete NO GROWTH AFTER 5 DAYS 04/12/20 Blood Culture - Final, Complete NO GROWTH AFTER 5 DAYS TISHA SMILEY MD Apr 19, 2020 17:15
--- NOTE | 2020-04-19 20:42 | DS.PDOC ---
Discharge Summary General Date of Admission Apr 13, 2020 at 02:19 Date of Discharge 04/19/20 Attending Physician: Socorro Panchal MD Discharge Summary HISTORY OF PRESENT ILLNESS: 59 yo M with type 1 DM, bilateral BKAs (R BKA on 03/[address] Haro, required ARU) presented to ER after he fell this morning in his bathroom after his R prosthetic leg fell off. He reports that the prosthesis has been loose fitting, and he has an appointment with DME purveyors to assist him on 04/19/20. He denies dizziness, lightheadedness, chest pain at the time of fall. On arrival to ED, he was found to be hypoglycemic to BG 17. he was given several amps of D50, but ultimately required a D10 drip. Patient has turned off his insulin pump. Further, he rports significant pain to palpation of the skin surrounding the suture site on the R BKA, with concern for cellulitis. Patient was febrile on arrival to 101.4. HR 92. BP 174/62. Pulse ox 92-98% on RA. Labs on arrival: WBC 10.8. Hgb 9.7. Hct 9.7. BG 17. UA clean. XR of the R BKA stump shows no acute changes. CXR without consolidation. Patient was admitted to hospitalist service for management of sepsis 2/2 cellulitis of R BKA stump and resultant hypoglycemia. HOSPITAL COURSE: Cellulitis of R BKA stump was treated with IV vancomycin x 4 days and later switched to PO zyvox. Discussed case with Dr. Boss who agreed with [facility]. She saw him on 04/19/20 and suggested wound care, f/u in 1 week after discharge. PT: ok for home with services. Migraine headaches were controlled with fioricet this admission. Blood sugars were challenging to manage but this is likely because he has a pump normally. On 04/19/20 patient was discharged home with 3 additinoal days of Zyvox, f/u with vascular surgery in 1 week and f/u with PCP. He had no acute complaints. PAST MEDICAL HISTORY: Type 1 DM, insulin pump brain tumor temporal arteritis adrenal insufficiency peripheral vascular disease PAST SURGICAL HISTORY: Bilateral BKA. Cataract surgery Fatty tumor removal Right knee surgery Right wrist surgery SOCIAL HISTORY: former smoker denies etoh use denies illicits FAMILY HISTORY: reviewed with patient, non contributory ALLERGIES: Please see below. DISCHARGE MEDICATIONS: Please see below. PHYSICAL EXAMINATION: VITAL SIGNS: please see below General: NAD, comfortable HEENT: PERRLA, EOMI, sclerae clear Neck: supple, normal ROM, no JVD Respiratory: lungs CTAB, no wheeze, no rales, no crackles CVS: RRR, normal S1, S2, no murmurs Abdo: soft, no masses, no hepatosplenomegaly, BS+, no rebound tenderness Extremities: no edema, pulses 2+ MSK: bilateral BKAs. R stump suture skin erythematous, scabbed area has come off, slightly weeping but not purulent- swelling and erythema further improved. Stitches in place. Neuro: no focal neuro deficits, moving all 4 extremities, CN2-12 intact. Strength 5/5 in all 4 extremities. No nystagmus. Psych: calm, cooperative, AAO x 3 LABORATORY DATA: See below. IMAGING: Right knee XR: Status post below-knee amputation. No acute abnormality. MICROBIOLOGY: BCx x 2 sets: NG to date ASSESSMENT: 59 yo M with type 1 DM, bilateral BKAs admitted to hospitalist service for management of sepsis 2/2 cellulitis of R BKA stump and hypoglycemia. PLAN: #Cellulitis of R BKA stump -WBC wnl, afebrile. Previously failed o/p treatment. -BCx NG -Discussed case with Dr. Boss who agreed with current care, recommended wound care, f/u in her office in 1 week. -PT: cont with home services. -D/dominic with 3 additional days of zyvox to complete 10 day total course of abx #Migraine headaches -Stable over 24 hours #Type 1 DM -C/w home insulin pump #Chronic Deconditioning -Per vascular surgery PA, patient has had issues at home with ambulation -PT: see above -Home with services #Peripheral vascular disease s/p right above knee amputation -Follows closely with Dr. Boss's office. -C/w ASA/plavix #Adrenal insufficiency -C/w prednisone #Glaucoma -C/w home meds #BPH/hx urinary retention -C/w home meds #DVT ppx -Lovenox Resolved issues: Sepsis 2/2 to cellulitis of right stump Nausea likely 2/2 to migraine headaches DISPOSITION: Discharged home with f/u with vascular surgery, PCP. TIME SPENT ON DISCHARGE: Greater than 30 minutes. Vital Signs/I&Os Vital Signs Date Time Temp Pulse Resp B/P (MAP) Pulse Ox O2 Delivery O2 Flow Rate FiO2 04/19/20 06:00 97.3 75 18 119/53 (75) 97 Room Air I&O- Last 24 Hours up to 6 AM 04/19/20 06:00 Intake Total 2770 ml Output Total 750 ml Balance 2020 ml Laboratory Data Labs 24H Laboratory Tests 2 04/19/20 05:42: Nucleated Red Blood Cells % (auto) 0.0, Anion Gap 8, Glomerular Filtration Rate > 60.0, Calcium Level 8.8, Total Bilirubin 0.3, Aspartate Amino Transf (AST/SG OT) 20, Alanine Aminotransferase (ALT/SGPT) 25, Alkaline Phosphatase 106, Total Protein 6.1L, Albumin 2.9L, Albumin/Globulin Ratio 0.9 04/19/20 11:29: Bedside Glucose (Misc Panel) 410H CBC/BMP Laboratory Tests 04/19/20 05:42 FSBS Laboratory Tests Test 04/19/20 11:29 Range/Units Bedside Glucose (Misc Panel) 410 80-115 MG/DL Microbiology Microbiology 04/12/20 Respiratory Virus Panel (PCR) (DARLINE) - Final, Complete 04/12/20 Blood Culture - Final, Complete NO GROWTH AFTER 5 DAYS 04/12/20 Blood Culture - Final, Complete NO GROWTH AFTER 5 DAYS Discharge Medications Scheduled Aspirin (Aspirin EC) 81 Mg Tablet.dr, 81 MG PO DAILY, (Reported) Atorvastatin Calcium (Atorvastatin Calcium) 40 Mg Tablet, 40 MG PO DAILY, (Reported) Bimatoprost (Lumigan) 0.01% 2.5ML Drops, 1 DROP OS QHS, (Reported) Brimonidine Tartrate (Alphagan P) 0.1% 5ML Drops, 1 DROP OS BID, (Reported) Citalopram Hydrobromide (Citalopram HBr) 40 Mg Tablet, 40 MG PO DAILY, (Reported) Clopidogrel Bisulfate (Plavix) 75 Mg Tablet, 75 MG PO DAILY, (Reported) Docusate Sodium (Dok) 100 Mg Capsule, 100 MG PO BID Ferrous Sulfate (Ferrous Sulfate) 325 Mg Tab, 325 MG PO QWEEK, (Reported) SUNDAY Finasteride (Finasteride) 5 Mg Tablet, 5 MG PO DAILY, (Reported) Gabapentin (Gabapentin) 300 Mg Capsule, 300 MG PO BID, (Reported) Insulin Human Lispro (Novolog) 100 Unit/1 Ml Vial, 1 DOSE SC ASDIRECTED, (Reported) UP TO 100 UNITS DAILY CONTINUOUS THROUGH INSULIN PUMP Linezolid (Linezolid) 600 Mg Tablet, 600 MG PO BID Multivitamins (Thera M Plus Tablet) 1 Each Tablet, 1 TAB PO DAILY, (Reported) Pantoprazole Sodium (Pantoprazole Sodium) 40 Mg Tablet.dr, 40 MG PO BID, (Reported) Prednisone (Prednisone) 1 Mg Tablet, 3 MG PO DAILY, (Reported) TAKES WITH 5MG FOR 8MG TOTAL Prednisone (Prednisone) 5 Mg Tablet, 5 MG PO DAILY, (Reported) TAKES WITH 3MG FOR 8MG TOTAL Psyllium Husk (Fiber) 0.52 Gm Capsule, 0.52 GM PO DAILY, (Reported) Pyridostigmine [place] (Pyridostigmine [place]) 60 Mg Tablet, 60 MG PO DAILY, (Reported) Tamsulosin HCl (Flomax) 0.4 Mg Capsule, 0.4 MG PO QHS, (Reported) Scheduled PRN Glucagon,Human Recombinant (Glucagon Emergency Kit) 1 Mg Vial, 1 MG IM ASDIRECTED PRN for LOW BLOOD SUGAR, (Reported) Tramadol HCl (Tramadol HCl) 50 Mg Tablet, 50 MG PO Q6HP PRN for MODERATE PAIN (PS 5-7) Allergies Coded Allergies: No Known Allergies (Unverified , 03/01/20) Socorro Panchal MD Apr 19, 2020 20:42
== END 2020-04-19 13:56 | disposition home or self-care (01) | DRG 565 ==
LOC: M ED 19:09 → M ED INP 04-13 02:19 → M PCU 04-13 05:02 → M MSPAV 04-13 16:26
PROVIDERS: ADMIT Family Medicine; ATTEND Internal Medicine
PROC: 02HV33Z Insertion of Infusion Device into Superior Vena Cava, Percutaneous Approach (ICD-10-PCS; principal; 2020-04-15 17:09)
DX: T87.43 Infection of amputation stump, right lower extremity (principal); L03.818 Cellulitis of other sites; E27.40 Unspecified adrenocortical insufficiency; E10.649 Type 1 diabetes mellitus with hypoglycemia without coma; E10.51 Type 1 diabetes mellitus with diabetic peripheral angiopathy without gangrene; M31.6 Other giant cell arteritis; Z89.512 Acquired absence of left leg below knee; Z89.511 Acquired absence of right leg below knee; G43.909 Migraine, unspecified, not intractable, without status migrainosus; H40.9 Unspecified glaucoma; N40.0 Benign prostatic hyperplasia without lower urinary tract symptoms; Z79.82 Long term (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; Z79.899 Other long term (current) drug therapy; Z79.4 Long term (current) use of insulin; Z79.52 Long term (current) use of systemic steroids; Y83.5 Amputation of limb(s) as the cause of abnormal reaction of the patient, or of later complication, without mention of misadventure at the time of the procedure

== ENCOUNTER 2020-04-23 15:56 | Emergency (ER) | payer MEDICARE, MEDICAID ==
[~2020-04-23] VITALS: Ht 170.2 cm; Wt 72.0 kg
[~2020-04-23 15:56] MED LIST changes: +ASPI-161 PO; +CITA40TA6 PO; +DOCU100C17 PO; +LINE1TAB6 PO; +PLAV1TAB2 PO; +PYRI60TA2 PO; +SENN18TA PO; +VITMTA PO
[2020-04-23 18:57] VITALS: BP 135/97
[2020-04-24] MEDS ORDERED: CEPH500C PO (19:39)
== END 2020-04-23 18:59 | disposition home or self-care (01) ==
LOC: EDBD 15:56 → M ED 15:56
DX: T81.89XA Other complications of procedures, not elsewhere classified, initial encounter (principal); Z89.512 Acquired absence of left leg below knee; E11.9 Type 2 diabetes mellitus without complications; I10 Essential (primary) hypertension; Z79.82 Long term (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; Z79.899 Other long term (current) drug therapy

== ENCOUNTER 2020-04-24 19:08 | Emergency (ER) | payer MEDICARE, MEDICAID ==
[~2020-04-24] VITALS: Ht 175.3 cm; Wt 67.3 kg
[2020-04-24] MEDS ORDERED: CEPH500C PO (19:39)
[2020-04-24 22:01] VITALS: BP 117/68
== END 2020-04-24 22:03 | disposition home or self-care (01) ==
LOC: M ED 19:08
DX: E11.649 Type 2 diabetes mellitus with hypoglycemia without coma (principal); Z79.4 Long term (current) use of insulin; Z79.82 Long term (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; Z79.899 Other long term (current) drug therapy

== ENCOUNTER 2020-05-02 01:32 | Inpatient (IN) | payer MEDICARE, MEDICAID ==
[2020-05-02] VITALS (7 sets, daily range): BP systolic 99–154; BP diastolic 48–68; O2SAT 97–99
[~2020-05-02] VITALS: Ht 175.3 cm; Wt 70.2 kg
[~2020-05-02 01:32] MED LIST changes: -LISI10TA22 PO; +LISI10TA4 PO; -METH-1164 PO; +METH1TAB40 PO; +TAMSULOSIN 0.4 MG CAP PO SCH
--- OUTSIDE RECORDS SUMMARY | 2020-05-02 01:38 | CCD ---
Author Author [facility] Organization [facility] Address Unknown Phone Unavailable Care Team Providers Care Risk Management Analyst Name Role Phone Christelle Cook Unavailable PROBLEMS Type Condition ICD9-CM Code [id number] Code Onset Dates Condition S tatus SNOMED Code Notes Problem Bipolar 1 disorder F31.9 Active 134302594 Problem Autonomic instability G90.9 Active 63282306 Problem Adrenal insufficiency E27.40 Active 732426573 Problem Anemia of chronic disease D63.8 Active 608520 009 Problem History of left below knee amputation Z89.512 Ac tive 463662992 Problem Cataract of both eyes, unspecified cataract type H 26.9 Active 88357648 Problem Chronic gastritis without bleeding, unspecified gastri tis type K29.50 Active 11323706 Problem Chronic obstructive pulmonary disease, unspecified COPD ty pe J44.9 Active 14442514 Problem PVD (peripheral vascular disease) I73.9 Active 586746633 Problem Type 1 diabetes mellitus with foot ulcer E10.621 Active 992478936819622 Problem 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 L97.519 Active Problem Type 1 diabetes mellitus with other specified complication E10.69 Active 95298692 Problem Acquired absence of right leg below knee Z89.511 Active 325681368 Problem 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 9 Active 5378652054287112 Problem Amputation below knee S88.119A Active 429049148 Problem Acquired absence of left leg below knee Z89.512 Active 201069389668729 ALLERGIES No Known Allergies ENCOUNTERS from 1960 to 2020-04-30 Encounter Location Date Provider Diagnosis [facility] [address] [place] [address] Apr, Christelle Cook IMMUNIZATIONS Vaccine Route Administration Date [...] School Language: Question Answer Notes Languages spoken: Macedonian Mandaen: Question Answer Notes Mandaen 08 Sabianist Alcohol Screening: Question Answer Notes Did you [...] Notes Start Da te End Date Status Atorvastatin Calcium 40MG 1 tablet Orally Once a day for 90 day(s) Active Proscar 5 MG 1 tablet Orally Once a day for 90 day(s) 05 J 2019 Not-Taking Misc. Devices - left bk replacement socket and supplies DX: Z89. 512 Dec, Not-Taking Wheelchair - as directed Jan, Active Brimonidine Tartrate 0.1 % 1 drop into affected eye Ophthalmic ever y 8 hrs Active Lumigan Active Ferrous Sulfate 325 (65 Fe) MG 1 tablet Orally Once a day for 30 Active Mupirocin 2 % 1 application to affected ar ea Externally Three times a day for 5 day(s) Dec, Not-Taking Celexa 40 MG 1 tab Orally Once a day for 90 day(s) Apr, Active Chlorhexidine Gluconate - as directed Active Collagenase 250 UNIT/GM 1 application Externally Once a day Active Finasteride 5 MG 1 tablet Orally Once a day for 30 day(s) Active Clopidogrel Bisulfate 75 MG 1 tablet Orally Once a day for 30 day(s) Active Plavix 75 MG 1 tablet Orally Once a day for 90 day(s) Not-Taking Gabapentin 300 MG 1 cap Orally bid for 90 day(s) Active Protonix 40 MG 1 tablet Orally bid July, Not-Taking NovoLog 100 UNIT/ML as directed Subcutaneous Ins ulin pump, pump up to 100 units daily July, Not-Taking Tramadol HCl 50 MG 1 tablet as needed Orally Once a day Active Ketoconazole 2 % 1 application Externally Once a day Active Proscar 5 MG 1 tablet Orally Once a day for 30 day(s) 19 S 2018 Not-Taking Glucagon Emergency 1 MG Injection A ctive Fludrocortisone Acetate 0.1 MG 1 tablet Orally Three times a Week for 30 day(s) Active Pantoprazole Sodium 40 MG 1 tablet Orally bid Active Insulin Syringe 31G X 16 as directed orally tid for 30 day(s) Sep, Not-Taking PredniSONE 5 MG 1 tablet Orally Once a day for 30 day(s) 0 July, Active Sucralfate 1 GM 1 tablet on an empty stomach Orally before meals and HS July, Active Aspirin Adult Low Dose 81 MG 1 tablet Orally Once a day Active Latanoprost 0.005 % 1 drop into affected eye in the evening Ophthalmic left eye Once a day July, Active Acetaminophen 500 MG 1 tablet as needed Orally every 6 hrs prn p ain July, Active Misc. Devices - needs functioning left brake on wheelchair Mar, Active Hydrocodone-Acetaminophen 5-325 MG 1 tablet as needed Orally every 6 hrs Active Levaquin 500 MG 1 tablet Orally Once a day for 10 day(s) Active PROCEDURES No Information RESULTS No Results REASON FOR VISIT mom concerned MEDICAL (GENERAL) HISTORY Type Description Date Medical [...] Coverage Start Date Coverage End Date MEDICAID [place] [address] [facility] [address] [place] self MEDICARE COMPLETE [facility] [address] [address] [facility] [id number] [place] self
--- OUTSIDE RECORDS SUMMARY | 2020-05-02 01:39 | CCD ---
Author Author [facility] Organization [facility] Address Unknown Phone Unavailable Care Team Providers Care Deputy Grand Jury Name Role Phone Christelle Cook Unavailable PROBLEMS Type Condition ICD9-CM Code [id number] Code Onset Dates Condition S tatus SNOMED Code Notes Problem Anemia of chronic disease D63.8 Active 136510 009 Problem Bipolar 1 disorder F31.9 Active 432862138 Problem Cataract of both eyes, unspecified cataract type H 26.9 Active 33122439 Problem Adrenal insufficiency E27.40 Active 630342536 Problem PVD (peripheral vascular disease) I73.9 Active 295990414 Problem History of left below knee amputation Z89.512 Ac tive 194468089 Problem Benign prostatic hyperplasia with lower urinary tract symptoms N40.1 Active 344243900838323 Problem Temporal arteritis M31.6 Active 102956135 Problem Chronic gastritis without bleeding, unspecified gastri tis type K29.50 Active 24156748 Problem Chronic obstructive pulmonary disease, unspecified COPD ty pe J44.9 Active 58835206 Problem Type 1 diabetes mellitus with foot ulcer E10.621 Active 065950055764986 Problem Type 1 diabetes mellitus with other specified complication E10.69 Active 55029403 Problem Type 2 diabetes mellitus with foot ulcer E11.621 Active 467108879 Problem Acquired absence of right leg below knee Z89.511 Active 735842978 Problem 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 L97.519 Active Problem Type 1 diabetes mellitus with complication E10.8 Active 22709618 Problem Below-knee amputation of right lower extremity S88 .111A Active 112397480 Problem 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 9 Active 2992843114536965 Problem Amputation below knee S88.119A Active 701725131 Problem Acquired absence of left leg below knee Z89.512 Active 785498408675366 ALLERGIES No Known Allergies ENCOUNTERS from 1960 to 2020-04-28 Encounter Location Date Provider Diagnosis [facility] [address] [place] [address] Apr, Christelle Cook IMMUNIZATIONS Vaccine Route Administration [...] School Language: Question Answer Notes Languages spoken: Peruvian Evangelical: Question Answer Notes Evangelical 08 Hoahaoism Alcohol Screening: Question Answer Notes Did you [...] Active Chlorhexidine Gluconate - as directed Active Lumigan Active Hydrocodone-Acetaminophen 5-325 MG 1 tablet as needed Orally every 6 hrs Active Aspirin Adult Low Dose 81 MG 1 tablet Orally Once a day Active Levaquin 500 MG 1 tablet Orally Once a day for 10 day(s) Active PROCEDURES No Information RESULTS No Results REASON FOR VISIT Nurse Orders MEDICAL (GENERAL) HISTORY Type Description Date Medical [...] TREATMENT Next Appt Details Provider Name:Christelle Cook, 2020-04-29 0 9:30:00 AM, [address] [place], [address], Insurance Providers Payer Name Payer Address Payer Phone Insured Name Patient Relati onship to Insured Coverage Start Date Coverage End Date MEDICAID [employer] [address] [facility] [id number] [place] self MEDICARE COMPLETE [facility] [address] [address] [facility] [phone] [place]ARCIA self
--- OUTSIDE RECORDS SUMMARY | 2020-05-02 01:39 | CCD ---
Author Author [facility] Organization [facility] Address Unknown Phone Unavailable Care Team Providers Care Hazardous Waste Material Technician Name Role Phone Christelle Cook Unavailable PROBLEMS Type Condition ICD9-CM Code [id number] Code Onset Dates Condition S tatus SNOMED Code Notes Problem Anemia of chronic disease D63.8 Active 118446 009 Problem Bipolar 1 disorder F31.9 Active 932228553 Problem Cataract of both eyes, unspecified cataract type H 26.9 Active 78169782 Problem Adrenal insufficiency E27.40 Active 620372233 Problem PVD (peripheral vascular disease) I73.9 Active 780157521 Problem History of left below knee amputation Z89.512 Ac tive 145657370 Problem Benign prostatic hyperplasia with lower urinary tract symptoms N40.1 Active 148135220526437 Problem Temporal arteritis M31.6 Active 692718179 Problem Chronic gastritis without bleeding, unspecified gastri tis type K29.50 Active 44019791 Problem Chronic obstructive pulmonary disease, unspecified COPD ty pe J44.9 Active 44866145 Problem Type 1 diabetes mellitus with foot ulcer E10.621 Active 014896222560076 Problem Type 1 diabetes mellitus with other specified complication E10.69 Active 31466016 Problem Type 2 diabetes mellitus with foot ulcer E11.621 Active 507397290 Problem Acquired absence of right leg below knee Z89.511 Active 038359883 Problem 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 L97.519 Active Problem Type 1 diabetes mellitus with complication E10.8 Active 03078633 Problem Below-knee amputation of right lower extremity S88 .111A Active 340663624 Problem 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 9 Active 7506985279568133 Problem Amputation below knee S88.119A Active 532716832 Problem Acquired absence of left leg below knee Z89.512 Active 882874880938919 ALLERGIES No Known Allergies ENCOUNTERS from 1960 to 2020-04-25 Encounter Location Date Provider Diagnosis [facility] [address] [place] [address] Apr, Christelle Cook IMMUNIZATIONS Vaccine Route Administration [...] School Language: Question Answer Notes Languages spoken: Tuvaluan Mormonism: Question Answer Notes Mormonism 08 Orthodoxy Alcohol Screening: Question Answer Notes Did you [...] Information RESULTS No Results REASON FOR VISIT FYI MEDICAL (GENERAL) HISTORY Type Description Date Medical [...] Provider Name:Christelle Cook, 2020-04-27 0 3:30:00 PM, [address] [place], [address], Provider Name:Christelle Cook 2020-04-29 0 9:30:00 AM, [address] [place], [address], Insurance Providers Payer Name Payer Address Payer Phone Insured Name Patient Relati onship to Insured Coverage Start Date Coverage End Date MEDICAID [employer] [place] [address] [facility] [address] [place] self MEDICARE COMPLETE [facility] [address] [address] [facility] [id number] [place] GARCIA self
--- OUTSIDE RECORDS SUMMARY | 2020-05-02 01:39 | CCD ---
Author Author [facility] Organization [facility] Address Unknown Phone Unavailable Care Team Providers Care Good Humor Vendor Name Role Phone Christelle Cook Unavailable PROBLEMS Type Condition ICD9-CM Code [id number] Code Onset Dates Condition S tatus SNOMED Code Notes Problem Anemia of chronic disease D63.8 Active 140470 009 Problem Bipolar 1 disorder F31.9 Active 335363798 Problem Cataract of both eyes, unspecified cataract type H 26.9 Active 81126784 Problem Adrenal insufficiency E27.40 Active 337142648 Problem PVD (peripheral vascular disease) I73.9 Active 765217148 Problem History of left below knee amputation Z89.512 Ac tive 581269377 Problem Benign prostatic hyperplasia with lower urinary tract symptoms N40.1 Active 623376098455450 Problem Temporal arteritis M31.6 Active 066349782 Problem Chronic gastritis without bleeding, unspecified gastri tis type K29.50 Active 75718866 Problem Chronic obstructive pulmonary disease, unspecified COPD ty pe J44.9 Active 37860201 Problem Type 1 diabetes mellitus with foot ulcer E10.621 Active 025202101976159 Problem Type 1 diabetes mellitus with other specified complication E10.69 Active 93235110 Problem Type 2 diabetes mellitus with foot ulcer E11.621 Active 820673316 Problem Acquired absence of right leg below knee Z89.511 Active 423412047 Problem 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 L97.519 Active Problem Type 1 diabetes mellitus with complication E10.8 Active 82732259 Problem Below-knee amputation of right lower extremity S88 .111A Active 770182089 Problem 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 9 Active 2791601161801262 Problem Amputation below knee S88.119A Active 449637574 Problem Acquired absence of left leg below knee Z89.512 Active 013480674603673 ALLERGIES No Known Allergies ENCOUNTERS from 1960 to 2020-04-28 Encounter Location Date Provider Diagnosis [facility] [address] [place] [address] Apr, Christelle Cook Exposure to COVID-19 virus Z20.822 IMMUNIZATIONS Vaccine Route Administration Date Status Influenza [...] School Language: Question Answer Notes Languages spoken: Kuwaiti Baptist: Question Answer Notes Baptist 08 Latter-Day Alcohol Screening: Question Answer Notes Did you [...] Information RESULTS No Results REASON FOR VISIT order MEDICAL (GENERAL) HISTORY Type Description Date Medical [...] Notes Treatment Notes Treatm ent Clinical Notes Apr, Exposure to COVID-19 virus (ICD-10 - Z20.822) PLAN OF TREATMENT Treatment Notes Test Name Order Date Coronavirus 2019 Nasopharygeal (Send Out) COVID 2020-0 1-27 Next Appt Details Provider Name:Christelle Cook, 2020-04-29 0 9:30:00 AM, [address] [place], [address], Insurance Providers Payer Name Payer Address Payer Phone Insured Name Patient Relati onship to Insured Coverage Start Date Coverage End Date MEDICARE COMPLETE [facility] [address] [address] [facility] [address] SE[place]STIEN GRACIA self MEDICAID [email or web address] [address] [facility] [id number] SEBASTIEN GARCIA self
--- OUTSIDE RECORDS SUMMARY | 2020-05-02 01:39 | CCD ---
Author Author [facility] Organization [facility] Address Unknown Phone Unavailable Care Team Providers Care Colors Custodian Name Role Phone Christelle Cook Unavailable PROBLEMS Type Condition ICD9-CM Code MUL69-PH Code Onset Dates Condition S tatus SNOMED Code Notes Problem Anemia of chronic disease D63.8 Active 560742 009 Problem Bipolar 1 disorder F31.9 Active 915243430 Problem Cataract of both eyes, unspecified cataract type H 26.9 Active 67901315 Problem Adrenal insufficiency E27.40 Active 024773242 Problem PVD (peripheral vascular disease) I73.9 Active 038420189 Problem History of left below knee amputation Z89.512 Ac tive 507338214 Problem Benign prostatic hyperplasia with lower urinary tract symptoms N40.1 Active 399873358904210 Problem Temporal arteritis M31.6 Active 613894181 Problem Chronic gastritis without bleeding, unspecified gastri tis type K29.50 Active 11931077 Problem Chronic obstructive pulmonary disease, unspecified COPD ty pe J44.9 Active 71768682 Problem Type 1 diabetes mellitus with foot ulcer E10.621 Active 956075396832555 Problem Type 1 diabetes mellitus with other specified complication E10.69 Active 12476753 Problem Type 2 diabetes mellitus with foot ulcer E11.621 Active 458629729 Problem Acquired absence of right leg below knee Z89.511 Active 694023665 Problem 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 L97.519 Active Problem Type 1 diabetes mellitus with complication E10.8 Active 24211484 Problem Below-knee amputation of right lower extremity S88 .111A Active 311471032 Problem 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 9 Active 5013857752521358 Problem Amputation below knee S88.119A Active 037652840 Problem Acquired absence of left leg below knee Z89.512 Active 289525412811290 ALLERGIES No Known Allergies ENCOUNTERS from 1960 to 2020-04-28 Encounter Location Date Provider Diagnosis [facility] [address] [place] [address] Apr, Christelle Cook IMMUNIZATIONS Vaccine Route Administration [...] School Language: Question Answer Notes Languages spoken: Japanese Baptism: Question Answer Notes Baptism 08 Baptist Alcohol Screening: Question Answer Notes Did you [...] Information RESULTS No Results REASON FOR VISIT ER Visit [facility] 04/23, 04/24; Leg Infection/Low Blood Sugar MEDICAL (GENERAL) HISTORY Type Description Date Medical [...] Provider Name:Christelle Cook, 2020-04-29 0 9:30:00 AM, [address] [place], [address], Insurance Providers Payer Name Payer Address Payer Phone Insured Name Patient Relati onship to Insured Coverage Start Date Coverage End Date MEDICAID [employer] [address] [facility] [id number] [place] GARCIA self MEDICARE COMPLETE [employer] [address] [address] [facility] [phone] SEBASTIEN GARCIA self
--- OUTSIDE RECORDS SUMMARY | 2020-05-02 01:39 | CCD ---
Author Author [facility] Organization [facility] Address Unknown Phone Unavailable Care Team Providers Care Envelope Sealer Name Role Phone Christelle Cook Unavailable PROBLEMS Type Condition ICD9-CM Code AFB02-UF Code Onset Dates Condition S tatus SNOMED Code Notes Problem Anemia of chronic disease D63.8 Active 888164 009 Problem Bipolar 1 disorder F31.9 Active 163451563 Problem Cataract of both eyes, unspecified cataract type H 26.9 Active 17858611 Problem Adrenal insufficiency E27.40 Active 804131623 Problem PVD (peripheral vascular disease) I73.9 Active 026258247 Problem History of left below knee amputation Z89.512 Ac tive 041012359 Problem Benign prostatic hyperplasia with lower urinary tract symptoms N40.1 Active 821524869973001 Problem Temporal arteritis M31.6 Active 494709156 Problem Chronic gastritis without bleeding, unspecified gastri tis type K29.50 Active 60655242 Problem Chronic obstructive pulmonary disease, unspecified COPD ty pe J44.9 Active 00420180 Problem Type 1 diabetes mellitus with foot ulcer E10.621 Active 918018626469238 Problem Type 1 diabetes mellitus with other specified complication E10.69 Active 51757283 Problem Type 2 diabetes mellitus with foot ulcer E11.621 Active 710093029 Problem Acquired absence of right leg below knee Z89.511 Active 248671806 Problem 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 L97.519 Active Problem Type 1 diabetes mellitus with complication E10.8 Active 23100980 Problem Below-knee amputation of right lower extremity S88 .111A Active 695741317 Problem 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 9 Active 0075841681901052 Problem Amputation below knee S88.119A Active 637114002 Problem Acquired absence of left leg below knee Z89.512 Active 885157952054440 ALLERGIES No Known Allergies ENCOUNTERS from 1960 to 2020-04-23 Encounter Location Date Provider Diagnosis [facility] [address] [place] [address] Apr, Christelle Cook IMMUNIZATIONS Vaccine Route Administration [...] School Language: Question Answer Notes Languages spoken: Swiss Presybeterian: Question Answer Notes Presybeterian 08 Islam Alcohol Screening: Question Answer Notes Did you [...] Information RESULTS No Results REASON FOR VISIT Fell and hit head MEDICAL (GENERAL) HISTORY Type Description Date Medical [...] Provider Name:Christelle Cook, 2020-04-27 0 3:30:00 PM, [address] [place], [address], Provider Name:Christelle Cook 2020-04-29 0 9:30:00 AM, [address] [place], [address], Insurance Providers Payer Name Payer Address Payer Phone Insured Name Patient Relati onship to Insured Coverage Start Date Coverage End Date MEDICARE COMPLETE [facility] [address] [address] [facility] [phone] SE[place]STIEN GARCIA self MEDICAID [employer] [facility] [address] [facility] [address] SEBASTIEN GARCIA self
--- OUTSIDE RECORDS SUMMARY | 2020-05-02 01:39 | CCD ---
Author Author [facility] Organization [facility] Address Unknown Phone Unavailable Care Team Providers Care Salmon Troll Fisher Name Role Phone Sofia Lopez Unavailable PROBLEMS Type Condition ICD9-CM Code XOA14-MB Code Onset Dates Condition S tatus SNOMED Code Notes Problem Anemia of chronic disease D63.8 Active 356808 009 Problem Bipolar 1 disorder F31.9 Active 020137533 Problem Cataract of both eyes, unspecified cataract type H 26.9 Active 43159252 Problem Adrenal insufficiency E27.40 Active 889857296 Problem PVD (peripheral vascular disease) I73.9 Active 278393878 Problem History of left below knee amputation Z89.512 Ac tive 835401576 Problem Benign prostatic hyperplasia with lower urinary tract symptoms N40.1 Active 288147078906597 Problem Temporal arteritis M31.6 Active 962596913 Problem Chronic gastritis without bleeding, unspecified gastri tis type K29.50 Active 27120669 Problem Chronic obstructive pulmonary disease, unspecified COPD ty pe J44.9 Active 54403540 Problem Type 1 diabetes mellitus with foot ulcer E10.621 Active 182018928365334 Problem Type 1 diabetes mellitus with other specified complication E10.69 Active 41802514 Problem Type 2 diabetes mellitus with foot ulcer E11.621 Active 644226457 Problem Acquired absence of right leg below knee Z89.511 Active 644710483 Problem 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 L97.519 Active Problem Type 1 diabetes mellitus with complication E10.8 Active 79856536 Problem Below-knee amputation of right lower extremity S88 .111A Active 264676631 Problem 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 9 Active 3301329559933116 Problem Amputation below knee S88.119A Active 673808987 Problem Acquired absence of left leg below knee Z89.512 Active 074979161368436 ALLERGIES No Known Allergies ENCOUNTERS from 1960 to 2020-04-15 Encounter Location Date Provider Diagnosis [facility] [address] [place] [address] Apr, [facility] discharge follow-up Z09 and [place] ow-knee amputation of right lower extremity S88.111A IMMUNIZATIONS Vaccine Route Administration Date Status Influenza [...] School Language: Question Answer Notes Languages spoken: Slovenian Presybeterian: Question Answer Notes Presybeterian 08 Mandaen Alcohol Screening: Question Answer Notes Did you [...] FOR REFERRAL No Information VITAL SIGNS Weight 155 lbs Apr, Height 69 in Apr, BMI 22.89 kg/m2 Apr, Heart Rate 74 /min Apr, Respiratory Rate 18 /min Apr, Temperature 98.3 degrees Fahrenheit Apr, Oximetry 99% Apr, Blood pressure systolic 136 mm Hg Apr, Blood pressure diastolic 65 mm Hg Apr, MEDICATIONS Medication SIG (Take, Route, Frequency, Duration) [...] Information RESULTS No Results REASON FOR VISIT DISCHARGED FROM ACUTE REHAB UNIT PER DR JUNG MEDICAL (GENERAL) HISTORY Type Description Date Medical [...] Treatment Notes Treatm ent Clinical Notes Apr, Hospital discharge follow-up (ICD-10 - Z09) Appears to be doing well at this time. His surgical wound is healing well, no concerns for infection. He will follow w/ surgeon again next week for suture removal. Minimal pain at this time. He is in process of fitting for prosthetic in [place]. One OT session remaining, continues w/ PT and Home Health RN. Appears BS mostly well controlled, uncertain as to why he "suspends" insulin pump, recommended against this action. Plan FU w/ PCP for ongoing/preventative care end of April, sooner if needed. Apr, Below-knee amputation of right lower ext remity (ICD-10 - S88.111A) see notes above PLAN OF TREATMENT Treatment Notes Assessment Notes Clinical Notes Hospital discharge follow-up Appears to be doing well at this time. His surgical wound is healing well, no concerns for infection. He will follow w/ surgeon again next week for suture removal. Minimal pain at this time. He is in process of fitting for prosthetic in [place]. One OT session remaining, continues w/ PT and Home Health RN. Appears BS mostly well controlled, uncertain as to why he "suspends" insulin pump, recommended against this action. Plan FU w/ PCP for ongoing/preventative care end of April, sooner if needed. Below-knee amputation of right lower extremity see notes above Next Appt Details PCP (end apr) Reason: Provider Name:Christelleregan Jung, 2020-04-27 0 3:30:00 PM, [address] [place], [address], Insurance Providers Payer Name Payer Address Payer Phone Insured Name Patient Relati onship to Insured Coverage Start Date Coverage End Date MEDICAID [employer] [address] [facility] [id number] [place] GARCIA MEDICARE COMPLETE [facility] [address] [address] [facility] [phone] SEBASTIEN GARCIA
--- OUTSIDE RECORDS SUMMARY | 2020-05-02 01:41 | CCD ---
Author Author [facility] Organization [facility] Address Unknown Phone Unavailable Care Team Providers Care Supervisory Cbp Officer Name Role Phone Hanna Boss MD Unavailable [...] Unavailable Michelle SARABIA MD Unavailable Unavailable Zeeshan CHAPA DPM Unavailable Unavailable Zeeshan CHAPA DPM Unavailable Unavailable Zeeshan CHAPA DPM Unavailable Unavailable Zeeshan CHAPA DPM Unavailable Unavailable Zeeshan CHAPA DPM Unavailable Unavailable SAMMI R MOOSE DPM Unavailable Unavailable SAMMI R MOOSE DPM Unavailable Unavailable SAMMI R MOOSE DPM Unavailable Unavailable SAMMI R MOOSE DPM Unavailable Unavailable MAJSALENA R MOOSE DPM Unavailable Unavailable MAJSALENA, R MOOSE DPM Unavailable Unavailable MAJSALENA, R MOOSE DPM Unavailable Unavailable MAJSALENA, R MOOSE DPM Unavailable Unavailable MAJSALENA, R MOOSE DPM Unavailable Unavailable MAJSALENA, R MOOSE DPM Unavailable Unavailable SAMMI, R MOOSE DPM Unavailable Unavailable MAJSALENA R MOOSE DPM Unavailable Unavailable SAMMI R MOOSE DPM Unavailable Unavailable MAJSALENA, R MOOSE DPM Unavailable Unavailable MAJSALENA, R MOOSE DPM Unavailable Unavailable MAJSALENA, R MOOSE DPM Unavailable Unavailable SAMMI R MOOSE DPM Unavailable Unavailable SAMMI R MOOSE DPM Unavailable Unavailable SAMMI R MOOSE DPM Unavailable Unavailable MAJAK, R [...] Unavailable Unavailable Shelby Kuhn MD Unavailable Unavailable Shelyb Kuhn MD Unavailable Unavailable Shelby Kuhn MD [...] is protected by Article 27-F of the [facility] Public Health law. If you continue you may have access to information: Regarding HIV / AIDS; Provided by facilities licensed or operated by the [facility] Office of Mental Health; or Provided by the [facility] Office for People With Developmental Disabilities. If such information is present, then the following [facility] mandated warning applies: This information has been [...] Description Data Source(s) Unknown Unknown Problem MEDENT ([facility]) father Encounters Encounter Providers Location Date Indications Data Source(s ) [place] [address] [facility] [address] [place] [address] 04/29/2020 12:00:00 AM EST eCW1 ([facility]) Unknown [address] [facility] [address] [place] [address] 04/28/2020 12:00:00 AM EST eCW1 ([facility]) Unknown [address] [facility] [address] [address] 04/26/2020 12:00:00 AM EST eCW1 [facility] [place] [address] [facility] [place] [address] 04/23/2020 12:00:00 AM EST [facility] [place] [address] [facility] [place] [address] 04/22/2020 12:00:00 AM EST [facility] [place] [address] [facility] [place] [address] 04/21/2020 12:00:00 AM EST [facility]CW1 [facility] Outpatient [address] [facility] Y [address] 04/06/2020 12:00:00 AM EST [facility]CW[facility] Office Visit Attender: Florencia Mcnair/Анна/Indra/Zeeshan mcdowell 04/05/2020 08:15:00 AM EST MEDENT ([facility]) [place] [address] [facility] [place] [address] 03/31/2020 12:00:00 AM EST eCW1 ([facility]) [place] [address] [facility] [place] [address] 03/31/2020 12:00:00 AM EST eCW1 ([facility]) [place] [address] [facility] [place] [address] 03/29/2020 12:00:00 AM EST eCW1 ([facility]) [place] [address] [facility] [place] [address] 03/24/2020 12:00:00 AM EST eCW1 ([facility]) [place] [address] [facility] [place] [address] 03/10/2020 12:00:00 AM EST eCW1 ([facility]) Outpatient Attender: Alex Kuhn MD CPSCAORT-CPSCAEND 03/02 02:32:00 PM EST - 03/02/2020 02:33:00 PM EST E10.65 [facility] E10.65 Patient discharged. Unknown [address] [facility] [address] 03/01/2020 12:00:00 AM EST [facility]CW1 [facility]) Outpatient Attender: Kathy Mcnair/Анна/Indra/ Talon 02/23/2020 12:30:00 PM EST MEDENT ([facility]) ([id number]) For Template [place] [address] [place] [address] 02/23/2020 12:00:00 AM EST eCW1 ([facility]) Unknown [address] [place] [address] 02/20/2020 12:00:00 AM EST eCW1 [facility]) Office Visit, Est Pt., Level [address] [place] [phone] 02/19/2020 12:00:00 AM EST eCW1 ([facility]) Unknown [address] [facility] [address] 02/19/2020 12:00:00 AM EST eCW1 ([facility]) Office Visit Attender: MOOSE CHAPA [facility] Office 01/31 12:00:00 PM EST MEDENT ([facility] Unknown [address] [facility] [address] 02/18/2020 12:00:00 AM EST eCW1 ([facility]) Unknown [address] [facility] [address] 02/10/2020 12:00:00 AM EST eCW1 ([facility]) Outpatient [address] [place] [address] 02/09/2020 12:00:00 AM EST eCW1 ([facility]) Unknown [address] [place] [address] 02/04/2020 12:00:00 AM EST eCW1 ([facility]) Office Visit Attender: MOOSE CHAPA [facility] Office 05/2019 01:45:00 PM EST MEDENT ([facility] Unknown [address] [facility], [facility] [address] 01/26/2020 12:00:00 AM EDT eCW1 ([facility]) Outpatient Attender: MOOSE CHAPA [facility] Office 01/01 02:30:00 PM EDT MEDENT ([facility] Outpatient Attender: Florencia Mcnair/Анна/Indra/R eindl 01/20/2020 11:30:00 AM EDT MEDENT ([facility]) Outpatient [address] [facility] [address] 01/19/2020 12:00:00 AM EDT eCW1 ([facility]) ([id number]) [facility] [address] [place] [address] 01/09/2020 12:00:00 AM EDT eCW1 ([facility]) Unknown [address] [facility], [facility] [address] 01/01/2020 12:00:00 AM EDT eCW1 ([facility]) Unknown [address] [facility] Y [address] 12/30/2019 12:00:00 AM EDT eCW1 [facility]) Outpatient Attender: Florencia Mcnair/Анна/Indra/R eindl 12/17/2019 09:00:00 AM EDT MEDENT ([facility] Outpatient Attender: Alex Kuhn MD CPSCAORT-CPSCAEND 11/30 02:51:00 PM EDT - 12/01/2019 02:52:00 PM EDT E10.65 [facility] E10.65 Patient discharged. Outpatient Attender: DILSHAD Mcnair/[place]/Ang el/Reindl 11/05/2019 11:30:00 AM EDT MEDENT ([facility]) Outpatient Attender: RAISA Mcnair/[place]/Indra/ Reindl 11/04/2019 11:20:00 AM EDT MEDENT ([facility]) Outpatient Attender: Florencia Dumont RPA Xu/[place]/Indra/R eindl 10/16/2019 10:00:00 AM EDT MED[facility] ([facility]) [place] [address] [facility] [place] [address] 10/16/2019 12:00:00 AM EDT eCW1 [facility] Outpatient Attender: RAISA Mcnair/[place]/Indra/ Reindl 10/07/2019 11:20:00 AM EDT MEDENT ([facility]) Outpatient Attender: Florencia Dumont RPA Xu/[place]/Indra/R eindl 09/25/2019 01:30:00 PM EDT MEDENT ([facility] Outpatient Attender: Florencia Dumont RPA Xu/[place]/Indra/R eindl 09/24/2019 10:00:00 AM EDT [facility] ([facility] [place] [address] [facility] [place] [address] 09/18/2019 12:00:00 AM EDT eCW1 ([facility]) [place] [address] [facility] [place] [address] 09/12/2019 12:00:00 AM EDT eCW1 ([facility]) Outpatient Attender: RAISA Mcnair/[place]/Indra/ Reindl 09/09/2019 11:35:00 AM EDT [facility] ([facility] [place] [address] [facility] [place] [address] 09/05/2019 12:00:00 AM EDT eCW1 ([facility]) [place] [address] [facility] [place] [address] 09/03/2019 12:00:00 AM EDT eCW1 ([facility]) Outpatient 08/28/2019 09:03:00 AM EDT [facility] Unknown [address] [facility] [place] [address] 08/26/2019 12:00:00 AM EDT eCW1 ([facility]) Outpatient Attender: Alex Kuhn MD CPSCAORT-CPSCAEND 08/19 02:44:00 PM EDT - 08/20/2019 02:45:00 PM EDT [facility] Patient discharged. [facility] [address] [facility] [place] [address] 08/20/2019 12:00:00 AM EDT eCW1 ([facility]) [facility] [address] [facility] [place] [address] 08/19/2019 12:00:00 AM EDT eCW1 ([facility]) [facility] [address] [facility] [place] [address] 08/19/2019 12:00:00 AM EDT eCW1 ([facility]) Outpatient 08/13/2019 02:22:00 PM EDT [facility] [address] [facility] [place] [address] 08/12/2019 12:00:00 AM EDT eCW1 [facility] [address] [facility] [place] [address] 08/07/2019 12:00:00 AM EDT eCW1 ([facility]) [facility] [address] [facility] [place] [address] 08/05/2019 12:00:00 AM EDT eCW1 ([facility]) [facility] [address] [facility] [place] [address] 08/04/2019 12:00:00 AM EDT eCW1 ([facility]) [facility] [place] [address] [place] [address] 06/25/2019 12:00:00 AM EDT eCW1 ([facility]) [facility] [address] [facility] [address] 06/19/2019 12:00:00 AM EDT eCW1 ([facility]) [facility] [address] [place] [address] 06/18/2019 12:00:00 AM EDT eCW1 ([facility]) [facility] [address] [place] [address] 06/06/2019 12:00:00 AM EST eCW1 ([facility]) [facility] [address] [facility], [place] [address] 04/30/2019 12:00:00 AM EST eCW1 ([facility]) Outpatient Attender: Alex Kuhn MD CPSCAORT-CPSCAEND 04/24 03:04:00 PM EST - 04/24/2019 03:05:00 PM EST E10.65 [facility] E10.65 Patient discharged. [facility] [address] [facility] [place] [address] 04/22/2019 12:00:00 AM EST eCW1 ([facility]) [facility] [address] [facility] [address] 04/15/2019 12:00:00 AM EST eCW1 ([facility]) [facility] [address] [facility] [address] 04/07/2019 12:00:00 AM EST eCW1 ([facility]) Outpatient Attender: Alex Kuhn MD CPSCAORT-CPSCAEND 01/14 02:06:00 PM EDT - 01/14/2019 02:07:00 PM EDT E10.65 [facility] E10.65 Patient discharged. Medications Medication Brand Name Start Date Product Form Dose Route Admi nistrative Instructions Pharmacy Instructions Status Indications Reaction Description Data Source(s) Misc. Devices - UNK 03/11/2020 12:00:00 AM EST active Misc. Devices - eCW1 ([facility]) Misc. Devices - UNK 03/11/2020 12:00:00 AM EST active Misc. Devices - eCW1 ([facility]) Misc. Devices - UNK 03/11/2020 12:00:00 AM EST active Misc. Devices - eCW1 ([facility]) Misc. Devices - UNK 03/11/2020 12:00:00 AM EST active Misc. Devices - eCW1 ([facility]) Misc. Devices - UNK 03/11/2020 12:00:00 AM EST active Misc. Devices - eCW1 ([facility]) Misc. Devices - UNK 03/11/2020 12:00:00 AM EST active Misc. Devices - eCW1 ([facility]) Misc. Devices - UNK 03/11/2020 12:00:00 AM EST active Misc. Devices - eCW1 ([facility]) Misc. Devices - UNK 03/11/2020 12:00:00 AM EST active Misc. Devices - eCW1 ([facility]) Misc. Devices - UNK 03/11/2020 12:00:00 AM EST active Misc. Devices - eCW1 ([facility]) Misc. Devices - UNK 03/11/2020 12:00:00 AM EST active Misc. Devices - eCW1 ([facility]) Misc. Devices - UNK 03/11/2020 12:00:00 AM EST active Misc. Devices - eCW1 ([facility]) Misc. Devices - UNK 03/11/2020 12:00:00 AM EST active Misc. Devices - eCW1 ([facility]) Misc. Devices - UNK 03/11/2020 12:00:00 AM EST active Misc. Devices - eCW1 ([facility]) Wheelchair - Wheelchair - 02/24/2020 12:00:00 AM EST active Wheelchair - eCW1 ([facility]) Wheelchair - Wheelchair - 02/24/2020 12:00:00 AM EST active Wheelchair - eCW1 ([facility]) Wheelchair - Wheelchair - 02/24/2020 12:00:00 AM EST active Wheelchair - eCW1 ([facility]) Wheelchair - Wheelchair - 02/24/2020 12:00:00 AM EST active Wheelchair - eCW1 ([facility]) Wheelchair - Wheelchair - 02/24/2020 12:00:00 AM EST active Wheelchair - eCW1 ([facility]) Wheelchair - Wheelchair - 02/24/2020 12:00:00 AM EST active Wheelchair - eCW1 ([facility]) Wheelchair - Wheelchair - 02/24/2020 12:00:00 AM EST active Wheelchair - eCW1 ([facility]) Wheelchair - Wheelchair - 02/24/2020 12:00:00 AM EST active Wheelchair - eCW1 ([facility]) Wheelchair - Wheelchair - 02/24/2020 12:00:00 AM EST active Wheelchair - eCW1 ([facility]) Wheelchair - Wheelchair - 02/24/2020 12:00:00 AM EST active Wheelchair - eCW1 ([facility]) Wheelchair - Wheelchair - 02/24/2020 12:00:00 AM EST active Wheelchair - eCW1 ([facility]) Wheelchair - Wheelchair - 02/24/2020 12:00:00 AM EST active Wheelchair - eCW1 ([facility]) Wheelchair - Wheelchair - 02/24/2020 12:00:00 AM EST active Wheelchair - eCW1 ([facility]) Wheelchair - Wheelchair - 02/24/2020 12:00:00 AM EST active Wheelchair - eCW1 ([facility]) Wheelchair - Wheelchair - 02/24/2020 12:00:00 AM EST active Wheelchair - eCW1 ([facility]) Wheelchair - Wheelchair - 02/24/2020 12:00:00 AM EST active Wheelchair - eCW1 ([facility]) Cephalexin 500 MG Oral Capsule Cephalexin 02/02/2020 12:00:00 AM EST ORAL active MEDENT ([facility] tramadol hydrochloride 50 MG Oral Tablet Tramadol HCL 02/02/2020 12:00:00 AM EST active MEDENT ([facility] Sucralfate 100 MG/ML Oral Suspension Sucralfate 10/23/2019 12:00:00 A M EDT ORAL active MEDENT ([facility], ) pantoprazole 40 MG Delayed Release Oral Tablet Pantoprazole Sodium 10/07/2019 12:00:00 AM EDT active M EDENT ([facility], ) Finasteride 5 MG Oral Tablet [Proscar] Proscar 5 MG Proscar 5 MG 09/05/2019 12:00:00 AM EDT 1.0 {tablet} suspended Proscar 5 MG eCW1 ([facility]) Finasteride 5 MG Oral Tablet [Proscar] Proscar 5 MG Proscar 5 MG 09/05/2019 12:00:00 AM EDT 1.0 {tablet} active Pr cassidy 5 MG eCW1 ([facility]) Finasteride 5 MG Oral Tablet [Proscar] Proscar 5 MG Proscar 5 MG 09/05/2019 12:00:00 AM EDT 1.0 {tablet} suspended Proscar 5 MG eCW1 ([facility]) Finasteride 5 MG Oral Tablet [Proscar] Proscar 5 MG Proscar 5 MG 09/05/2019 12:00:00 AM EDT 1.0 {tablet} suspended Proscar 5 MG eCW1 ([facility]) Finasteride 5 MG Oral Tablet [Proscar] Proscar 5 MG Proscar 5 MG 09/05/2019 12:00:00 AM EDT 1.0 {tablet} suspended Proscar 5 MG eCW1 ([facility]) Finasteride 5 MG Oral Tablet [Proscar] Proscar 5 MG Proscar 5 MG 09/05/2019 12:00:00 AM EDT 1.0 {tablet} active Pr cassidy 5 MG eCW1 ([facility]) Finasteride 5 MG Oral Tablet [Proscar] Proscar 5 MG Proscar 5 MG 09/05/2019 12:00:00 AM EDT 1.0 {tablet} suspended Proscar 5 MG eCW1 ([facility]) Finasteride 5 MG Oral Tablet [Proscar] Proscar 5 MG Proscar 5 MG 09/05/2019 12:00:00 AM EDT 1.0 {tablet} suspended Proscar 5 MG eCW1 ([facility]) Finasteride 5 MG Oral Tablet [Proscar] Proscar 5 MG Proscar 5 MG 09/05/2019 12:00:00 AM EDT 1.0 {tablet} active Pr cassidy 5 MG eCW1 ([facility]) Finasteride 5 MG Oral Tablet [Proscar] Proscar 5 MG Proscar 5 MG 09/05/2019 12:00:00 AM EDT 1.0 {tablet} active Pr cassidy 5 MG eCW1 ([facility]) Finasteride 5 MG Oral Tablet [Proscar] Proscar 5 MG Proscar 5 MG 09/05/2019 12:00:00 AM EDT 1.0 {tablet} active Pr cassidy 5 MG eCW1 ([facility]) Finasteride 5 MG Oral Tablet [Proscar] Proscar 5 MG Proscar 5 MG 09/05/2019 12:00:00 AM EDT 1.0 {tablet} suspended Proscar 5 MG eCW1 ([facility]) Finasteride 5 MG Oral Tablet [Proscar] Proscar 5 MG Proscar 5 MG 09/05/2019 12:00:00 AM EDT 1.0 {tablet} suspended Proscar 5 MG eCW1 ([facility]) Finasteride 5 MG Oral Tablet [Proscar] Proscar 5 MG Proscar 5 MG 09/05/2019 12:00:00 AM EDT 1.0 {tablet} suspended Proscar 5 MG eCW1 ([facility]) Finasteride 5 MG Oral Tablet [Proscar] Proscar 5 MG Proscar 5 MG 09/05/2019 12:00:00 AM EDT 1.0 {tablet} suspended Proscar 5 MG eCW1 ([facility]) Finasteride 5 MG Oral Tablet [Proscar] Proscar 5 MG Proscar 5 MG 09/05/2019 12:00:00 AM EDT 1.0 {tablet} suspended Proscar 5 MG eCW1 ([facility]) Finasteride 5 MG Oral Tablet [Proscar] Proscar 5 MG Proscar 5 MG 09/05/2019 12:00:00 AM EDT 1.0 {tablet} active Pr cassidy 5 MG eCW1 ([facility]) Finasteride 5 MG Oral Tablet [Proscar] Proscar 5 MG Proscar 5 MG 09/05/2019 12:00:00 AM EDT 1.0 {tablet} active Pr cassidy 5 MG eCW1 ([facility]) Finasteride 5 MG Oral Tablet [Proscar] Proscar 5 MG Proscar 5 MG 09/05/2019 12:00:00 AM EDT 1.0 {tablet} active Pr cassidy 5 MG eCW1 ([facility]) Finasteride 5 MG Oral Tablet [Proscar] Proscar 5 MG Proscar 5 MG 09/05/2019 12:00:00 AM EDT 1.0 {tablet} active Pr cassidy 5 MG eCW1 ([facility]) Finasteride 5 MG Oral Tablet [Proscar] Proscar 5 MG Proscar 5 MG 09/05/2019 12:00:00 AM EDT 1.0 {tablet} active Pr cassidy 5 MG eCW1 ([facility]) Finasteride 5 MG Oral Tablet [Proscar] Proscar 5 MG Proscar 5 MG 09/05/2019 12:00:00 AM EDT 1.0 {tablet} suspended Proscar 5 MG eCW1 ([facility]) Finasteride 5 MG Oral Tablet [Proscar] Proscar 5 MG Proscar 5 MG 09/05/2019 12:00:00 AM EDT 1.0 {tablet} suspended Proscar 5 MG eCW1 ([facility]) Finasteride 5 MG Oral Tablet [Proscar] Proscar 5 MG Proscar 5 MG 09/05/2019 12:00:00 AM EDT 1.0 {tablet} suspended Proscar 5 MG eCW1 ([facility]) Finasteride 5 MG Oral Tablet [Proscar] Proscar 5 MG Proscar 5 MG 09/05/2019 12:00:00 AM EDT 1.0 {tablet} active Pr cassidy 5 MG eCW1 ([facility]) Finasteride 5 MG Oral Tablet [Proscar] Proscar 5 MG Proscar 5 MG 09/05/2019 12:00:00 AM EDT 1.0 {tablet} active Pr cassidy 5 MG eCW1 ([facility]) Finasteride 5 MG Oral Tablet [Proscar] Proscar 5 MG Proscar 5 MG 09/05/2019 12:00:00 AM EDT 1.0 {tablet} active Pr cassidy 5 MG eCW1 ([facility]) Finasteride 5 MG Oral Tablet [Proscar] Proscar 5 MG Proscar 5 MG 09/05/2019 12:00:00 AM EDT 1.0 {tablet} active Pr cassidy 5 MG eCW1 ([facility]) Finasteride 5 MG Oral Tablet [Proscar] Proscar 5 MG Proscar 5 MG 09/05/2019 12:00:00 AM EDT 1.0 {tablet} suspended Proscar 5 MG eCW1 ([facility]) Finasteride 5 MG Oral Tablet [Proscar] Proscar 5 MG Proscar 5 MG 09/05/2019 12:00:00 AM EDT 1.0 {tablet} active Pr cassidy 5 MG eCW1 ([facility]) Finasteride 5 MG Oral Tablet [Proscar] Proscar 5 MG Proscar 5 MG 09/05/2019 12:00:00 AM EDT 1.0 {tablet} active Pr cassidy 5 MG eCW1 ([facility]) Finasteride 5 MG Oral Tablet [Proscar] Proscar 5 MG Proscar 5 MG 09/05/2019 12:00:00 AM EDT 1.0 {tablet} suspended Proscar 5 MG eCW1 ([facility]) Insulin, Aspart, Human 100 UNT/ML Inject able Solution [NovoLog] NovoLog 100 UNIT/ML NovoLog 100 UNIT/ML 08/06/2019 12:00:00 AM EDT active NovoLog 100 UNIT/ML eCW1 ([facility]) Prednisone 5 MG Oral Tablet PredniSONE 5 MG PredniSONE 5 MG 08/06/2019 12:00:00 AM EDT 1.0 {tablet} active PredniSONE 5 MG eCW1 ([facility]) latanoprost 0.05 MG/ML Ophthalmic Solution Latanoprost 0.005 % Latanoprost 0.005 % 08/06/2019 12:00:00 AM EDT 1.0 {drop_into_affected_eye_in_ the_evening} active Latanoprost 0.005 % eCW1 ([facility]) latanoprost 0.05 MG/ML Ophthalmic Solution Latanoprost 0.005 % Latanoprost 0.005 % 08/06/2019 12:00:00 AM EDT active 1 drop into affected eye in the evening eCW1 ([facility]) Insulin, Aspart, Human 100 UNT/ML Inject able Solution [NovoLog] NovoLog 100 UNIT/ML NovoLog 100 UNIT/ML 08/06/2019 12:00:00 AM EDT active NovoLog 100 UNIT/ML eCW1 ([facility]) Insulin, Aspart, Human 100 UNT/ML Inject able Solution [NovoLog] NovoLog 100 UNIT/ML NovoLog 100 UNIT/ML 08/06/2019 12:00:00 AM EDT active NovoLog 100 UNIT/ML eCW1 ([facility]) Sucralfate 1000 MG Oral Tablet Sucralfate 1 GM Sucralfate 1 GM 08/06/2019 12:00:00 AM EDT active 1 tablet on an empty stomach eCW1 ([facility]) Acetaminophen 500 MG Oral Tablet Acetaminophen 500 MG 2019 12:00:00 AM EDT 1.0 {tablet_as_needed} active A cetaminophen 500 MG eCW1 ([facility]) latanoprost 0.05 MG/ML Ophthalmic Solution Latanoprost 0.005 % Latanoprost 0.005 % 08/06/2019 12:00:00 AM EDT 1.0 {drop_into_affected_eye_in_ the_evening} active Latanoprost 0.005 % eCW1 ([facility]) Sucralfate 1000 MG Oral Tablet Sucralfate 1 GM Sucralfate 1 GM 08/06/2019 12:00:00 AM EDT 1.0 {tablet_on_an_empty_stomach} active Sucralfate 1 GM eCW1 ([facility]) Acetaminophen 500 MG Oral Tablet Acetaminophen 500 MG 2019 12:00:00 AM EDT 1.0 {tablet_as_needed} active A cetaminophen 500 MG eCW1 ([facility]) Acetaminophen 500 MG Oral Tablet Acetaminophen 500 MG 2019 12:00:00 AM EDT 1.0 {tablet_as_needed} active A cetaminophen 500 MG eCW1 ([facility]) Sucralfate 1000 MG Oral Tablet Sucralfate 1 GM Sucralfate 1 GM 08/06/2019 12:00:00 AM EDT 1.0 {tablet_on_an_empty_stomach} active Sucralfate 1 GM eCW1 ([facility]) pantoprazole 40 MG Delayed Release Oral Tablet [Proton ix] Protonix 40 MG Protonix 40 MG 08/06/2019 12:00:00 AM EDT 1.0 {tablet} suspended Protonix 40 MG eCW1 ([facility]) Prednisone 5 MG Oral Tablet PredniSONE 5 MG PredniSONE 5 MG 08/06/2019 12:00:00 AM EDT 1.0 {tablet} active PredniSONE 5 MG eCW1 ([facility]) Acetaminophen 500 MG Oral Tablet Acetaminophen 500 MG 2019 12:00:00 AM EDT 1.0 {tablet_as_needed} active A cetaminophen 500 MG eCW1 ([facility]) pantoprazole 40 MG Delayed Release Oral Tablet [Proton ix] Protonix 40 MG Protonix 40 MG 08/06/2019 12:00:00 AM EDT 1.0 {tablet} active Protonix 40 MG eCW1 ([facility]) pantoprazole 40 MG Delayed Release Oral Tablet [Proton ix] Protonix 40 MG Protonix 40 MG 08/06/2019 12:00:00 AM EDT 1.0 {tablet} suspended Protonix 40 MG eCW1 ([facility]) latanoprost 0.05 MG/ML Ophthalmic Solution Latanoprost 0.005 % Latanoprost 0.005 % 08/06/2019 12:00:00 AM EDT 1.0 {drop_into_affected_eye_in_ the_evening} active Latanoprost 0.005 % eCW1 ([facility]) Insulin, Aspart, Human 100 UNT/ML Inject able Solution [NovoLog] NovoLog 100 UNIT/ML NovoLog 100 UNIT/ML 08/06/2019 12:00:00 AM EDT suspended NovoLog 100 UNIT/ML eCW1 ([facility]) latanoprost 0.05 MG/ML Ophthalmic Solution Latanoprost 0.005 % Latanoprost 0.005 % 08/06/2019 12:00:00 AM EDT 1.0 {drop_into_affected_eye_in_ the_evening} active Latanoprost 0.005 % eCW1 ([facility]) Insulin, Aspart, Human 100 UNT/ML Inject able Solution [NovoLog] NovoLog 100 UNIT/ML NovoLog 100 UNIT/ML 08/06/2019 12:00:00 AM EDT suspended NovoLog 100 UNIT/ML eCW1 ([facility]) pantoprazole 40 MG Delayed Release Oral Tablet [Proton ix] Protonix 40 MG Protonix 40 MG 08/06/2019 12:00:00 AM EDT 1.0 {tablet} active Protonix 40 MG eCW1 ([facility]) pantoprazole 40 MG Delayed Release Oral Tablet [Proton ix] Protonix 40 MG Protonix 40 MG 08/06/2019 12:00:00 AM EDT 1.0 {tablet} active Protonix 40 MG eCW1 ([facility]) Sucralfate 1000 MG Oral Tablet Sucralfate 1 GM Sucralfate 1 GM 08/06/2019 12:00:00 AM EDT 1.0 {tablet_on_an_empty_stomach} active Sucralfate 1 GM eCW1 ([facility]) pantoprazole 40 MG Delayed Release Oral Tablet [Proton ix] Protonix 40 MG Protonix 40 MG 08/06/2019 12:00:00 AM EDT 1.0 {tablet} active Protonix 40 MG eCW1 ([facility]) pantoprazole 40 MG Delayed Release Oral Tablet [Proton ix] Protonix 40 MG Protonix 40 MG 08/06/2019 12:00:00 AM EDT 1.0 {tablet} suspended Protonix 40 MG eCW1 ([facility]) latanoprost 0.05 MG/ML Ophthalmic Solution Latanoprost 0.005 % Latanoprost 0.005 % 08/06/2019 12:00:00 AM EDT 1.0 {drop_into_affected_eye_in_ the_evening} active Latanoprost 0.005 % eCW1 ([facility]) Insulin, Aspart, Human 100 UNT/ML Inject able Solution [NovoLog] NovoLog 100 UNIT/ML NovoLog 100 UNIT/ML 08/06/2019 12:00:00 AM EDT suspended NovoLog 100 UNIT/ML eCW1 ([facility]) latanoprost 0.05 MG/ML Ophthalmic Solution Latanoprost 0.005 % Latanoprost 0.005 % 08/06/2019 12:00:00 AM EDT 1.0 {drop_into_affected_eye_in_ the_evening} active Latanoprost 0.005 % eCW1 ([facility]) Sucralfate 1000 MG Oral Tablet Sucralfate 1 GM Sucralfate 1 GM 08/06/2019 12:00:00 AM EDT 1.0 {tablet_on_an_empty_stomach} active Sucralfate 1 GM eCW1 ([facility]) Sucralfate 1000 MG Oral Tablet Sucralfate 1 GM Sucralfate 1 GM 08/06/2019 12:00:00 AM EDT 1.0 {tablet_on_an_empty_stomach} active Sucralfate 1 GM eCW1 ([facility]) Prednisone 5 MG Oral Tablet PredniSONE 5 MG PredniSONE 5 MG 08/06/2019 12:00:00 AM EDT active 1 tablet eCW1 ([facility]) Acetaminophen 500 MG Oral Tablet Acetaminophen 500 MG 2019 12:00:00 AM EDT active 1 tablet as neede d eCW1 ([facility]) pantoprazole 40 MG Delayed Release Oral Tablet [Proton ix] Protonix 40 MG Protonix 40 MG 08/06/2019 12:00:00 AM EDT 1.0 {tablet} active Protonix 40 MG eCW1 ([facility]) Sucralfate 1000 MG Oral Tablet Sucralfate 1 GM Sucralfate 1 GM 08/06/2019 12:00:00 AM EDT 1.0 {tablet_on_an_empty_stomach} active Sucralfate 1 GM eCW1 ([facility]) Acetaminophen 500 MG Oral Tablet Acetaminophen 500 MG 2019 12:00:00 AM EDT 1.0 {tablet_as_needed} active A cetaminophen 500 MG eCW1 ([facility]) Acetaminophen 500 MG Oral Tablet Acetaminophen 500 MG 2019 12:00:00 AM EDT 1.0 {tablet_as_needed} active A cetaminophen 500 MG eCW1 ([facility]) latanoprost 0.05 MG/ML Ophthalmic Solution Latanoprost 0.005 % Latanoprost 0.005 % 08/06/2019 12:00:00 AM EDT 1.0 {drop_into_affected_eye_in_ the_evening} active Latanoprost 0.005 % eCW1 ([facility]) Sucralfate 1000 MG Oral Tablet Sucralfate 1 GM Sucralfate 1 GM 08/06/2019 12:00:00 AM EDT 1.0 {tablet_on_an_empty_stomach} active Sucralfate 1 GM eCW1 ([facility]) pantoprazole 40 MG Delayed Release Oral Tablet [Proton ix] Protonix 40 MG Protonix 40 MG 08/06/2019 12:00:00 AM EDT 1.0 {tablet} suspended Protonix 40 MG eCW1 ([facility]) Prednisone 5 MG Oral Tablet PredniSONE 5 MG PredniSONE 5 MG 08/06/2019 12:00:00 AM EDT 1.0 {tablet} active PredniSONE 5 MG eCW1 ([facility]) latanoprost 0.05 MG/ML Ophthalmic Solution Latanoprost 0.005 % Latanoprost 0.005 % 08/06/2019 12:00:00 AM EDT 1.0 {drop_into_affected_eye_in_ the_evening} active Latanoprost 0.005 % eCW1 ([facility]) latanoprost 0.05 MG/ML Ophthalmic Solution Latanoprost 0.005 % Latanoprost 0.005 % 08/06/2019 12:00:00 AM EDT 1.0 {drop_into_affected_eye_in_ the_evening} active Latanoprost 0.005 % eCW1 ([facility]) Acetaminophen 500 MG Oral Tablet Acetaminophen 500 MG 2019 12:00:00 AM EDT 1.0 {tablet_as_needed} active A cetaminophen 500 MG eCW1 ([facility]) Acetaminophen 500 MG Oral Tablet Acetaminophen 500 MG 2019 12:00:00 AM EDT 1.0 {tablet_as_needed} active A cetaminophen 500 MG eCW1 ([facility]) Prednisone 5 MG Oral Tablet PredniSONE 5 MG PredniSONE 5 MG 08/06/2019 12:00:00 AM EDT 1.0 {tablet} active PredniSONE 5 MG eCW1 ([facility]) latanoprost 0.05 MG/ML Ophthalmic Solution Latanoprost 0.005 % Latanoprost 0.005 % 08/06/2019 12:00:00 AM EDT 1.0 {drop_into_affected_eye_in_ the_evening} active Latanoprost 0.005 % eCW1 ([facility]) Sucralfate 1000 MG Oral Tablet Sucralfate 1 GM Sucralfate 1 GM 08/06/2019 12:00:00 AM EDT active 1 tablet on an empty stomach eCW1 ([facility]) latanoprost 0.05 MG/ML Ophthalmic Solution Latanoprost 0.005 % Latanoprost 0.005 % 08/06/2019 12:00:00 AM EDT 1.0 {drop_into_affected_eye_in_ the_evening} active Latanoprost 0.005 % eCW1 ([facility]) Prednisone 5 MG Oral Tablet PredniSONE 5 MG PredniSONE 5 MG 08/06/2019 12:00:00 AM EDT 1.0 {tablet} active PredniSONE 5 MG eCW1 ([facility]) pantoprazole 40 MG Delayed Release Oral Tablet [Proton ix] Protonix 40 MG Protonix 40 MG 08/06/2019 12:00:00 AM EDT 1.0 {tablet} suspended Protonix 40 MG eCW1 ([facility]) Prednisone 5 MG Oral Tablet PredniSONE 5 MG PredniSONE 5 MG 08/06/2019 12:00:00 AM EDT 1.0 {tablet} active PredniSONE 5 MG eCW1 ([facility]) Acetaminophen 500 MG Oral Tablet Acetaminophen 500 MG 2019 12:00:00 AM EDT 1.0 {tablet_as_needed} active A cetaminophen 500 MG eCW1 ([facility]) pantoprazole 40 MG Delayed Release Oral Tablet [Proton ix] Protonix 40 MG Protonix 40 MG 08/06/2019 12:00:00 AM EDT 1.0 {tablet} suspended Protonix 40 MG eCW1 ([facility]) pantoprazole 40 MG Delayed Release Oral Tablet [Proton ix] Protonix 40 MG Protonix 40 MG 08/06/2019 12:00:00 AM EDT 1.0 {tablet} active Protonix 40 MG eCW1 ([facility]) Sucralfate 1000 MG Oral Tablet Sucralfate 1 GM Sucralfate 1 GM 08/06/2019 12:00:00 AM EDT 1.0 {tablet_on_an_empty_stomach} active Sucralfate 1 GM eCW1 ([facility]) pantoprazole 40 MG Delayed Release Oral Tablet [Proton ix] Protonix 40 MG Protonix 40 MG 08/06/2019 12:00:00 AM EDT 1.0 {tablet} active Protonix 40 MG eCW1 ([facility]) latanoprost 0.05 MG/ML Ophthalmic Solution Latanoprost 0.005 % Latanoprost 0.005 % 08/06/2019 12:00:00 AM EDT 1.0 {drop_into_affected_eye_in_ the_evening} active Latanoprost 0.005 % eCW1 ([facility]) Sucralfate 1000 MG Oral Tablet Sucralfate 1 GM Sucralfate 1 GM 08/06/2019 12:00:00 AM EDT 1.0 {tablet_on_an_empty_stomach} active Sucralfate 1 GM eCW1 ([facility]) Insulin, Aspart, Human 100 UNT/ML Inject able Solution [NovoLog] NovoLog 100 UNIT/ML NovoLog 100 UNIT/ML 08/06/2019 12:00:00 AM EDT suspended NovoLog 100 UNIT/ML eCW1 ([facility]) Insulin, Aspart, Human 100 UNT/ML Inject able Solution [NovoLog] NovoLog 100 UNIT/ML NovoLog 100 UNIT/ML 08/06/2019 12:00:00 AM EDT active NovoLog 100 UNIT/ML eCW1 ([facility]) Prednisone 5 MG Oral Tablet PredniSONE 5 MG PredniSONE 5 MG 08/06/2019 12:00:00 AM EDT 1.0 {tablet} active PredniSONE 5 MG eCW1 ([facility]) Insulin, Aspart, Human 100 UNT/ML Inject able Solution [NovoLog] NovoLog 100 UNIT/ML NovoLog 100 UNIT/ML 08/06/2019 12:00:00 AM EDT active NovoLog 100 UNIT/ML eCW1 ([facility]) Prednisone 5 MG Oral Tablet PredniSONE 5 MG PredniSONE 5 MG 08/06/2019 12:00:00 AM EDT active 1 tablet eCW1 ([facility]) Acetaminophen 500 MG Oral Tablet Acetaminophen 500 MG 2019 12:00:00 AM EDT 1.0 {tablet_as_needed} active A cetaminophen 500 MG eCW1 ([facility]) Acetaminophen 500 MG Oral Tablet Acetaminophen 500 MG 2019 12:00:00 AM EDT 1.0 {tablet_as_needed} active A cetaminophen 500 MG eCW1 ([facility]) latanoprost 0.05 MG/ML Ophthalmic Solution Latanoprost 0.005 % Latanoprost 0.005 % 08/06/2019 12:00:00 AM EDT 1.0 {drop_into_affected_eye_in_ the_evening} active Latanoprost 0.005 % eCW1 ([facility]) latanoprost 0.05 MG/ML Ophthalmic Solution Latanoprost 0.005 % Latanoprost 0.005 % 08/06/2019 12:00:00 AM EDT 1.0 {drop_into_affected_eye_in_ the_evening} active Latanoprost 0.005 % eCW1 ([facility]) Insulin, Aspart, Human 100 UNT/ML Inject able Solution [NovoLog] NovoLog 100 UNIT/ML NovoLog 100 UNIT/ML 08/06/2019 12:00:00 AM EDT active NovoLog 100 UNIT/ML eCW1 ([facility]) Prednisone 5 MG Oral Tablet PredniSONE 5 MG PredniSONE 5 MG 08/06/2019 12:00:00 AM EDT 1.0 {tablet} active PredniSONE 5 MG eCW1 ([facility]) Prednisone 5 MG Oral Tablet PredniSONE 5 MG PredniSONE 5 MG 08/06/2019 12:00:00 AM EDT 1.0 {tablet} active PredniSONE 5 MG eCW1 ([facility]) Acetaminophen 500 MG Oral Tablet Acetaminophen 500 MG 2019 12:00:00 AM EDT 1.0 {tablet_as_needed} active A cetaminophen 500 MG eCW1 ([facility]) Prednisone 5 MG Oral Tablet PredniSONE 5 MG PredniSONE 5 MG 08/06/2019 12:00:00 AM EDT 1.0 {tablet} active PredniSONE 5 MG eCW1 ([facility]) pantoprazole 40 MG Delayed Release Oral Tablet [Proton ix] Protonix 40 MG Protonix 40 MG 08/06/2019 12:00:00 AM EDT 1.0 {tablet} suspended Protonix 40 MG eCW1 ([facility]) Sucralfate 1000 MG Oral Tablet Sucralfate 1 GM Sucralfate 1 GM 08/06/2019 12:00:00 AM EDT 1.0 {tablet_on_an_empty_stomach} active Sucralfate 1 GM eCW1 ([facility]) Sucralfate 1000 MG Oral Tablet Sucralfate 1 GM Sucralfate 1 GM 08/06/2019 12:00:00 AM EDT 1.0 {tablet_on_an_empty_stomach} active Sucralfate 1 GM eCW1 ([facility]) Acetaminophen 500 MG Oral Tablet Acetaminophen 500 MG 2019 12:00:00 AM EDT 1.0 {tablet_as_needed} active A cetaminophen 500 MG eCW1 ([facility]) Acetaminophen 500 MG Oral Tablet Acetaminophen 500 MG 2019 12:00:00 AM EDT 1.0 {tablet_as_needed} active A cetaminophen 500 MG eCW1 ([facility]) Prednisone 5 MG Oral Tablet PredniSONE 5 MG PredniSONE 5 MG 08/06/2019 12:00:00 AM EDT 1.0 {tablet} active PredniSONE 5 MG eCW1 ([facility]) latanoprost 0.05 MG/ML Ophthalmic Solution Latanoprost 0.005 % Latanoprost 0.005 % 08/06/2019 12:00:00 AM EDT 1.0 {drop_into_affected_eye_in_ the_evening} active Latanoprost 0.005 % eCW1 ([facility]) Acetaminophen 500 MG Oral Tablet Acetaminophen 500 MG 2019 12:00:00 AM EDT 1.0 {tablet_as_needed} active A cetaminophen 500 MG eCW1 ([facility]) pantoprazole 40 MG Delayed Release Oral Tablet [Proton ix] Protonix 40 MG Protonix 40 MG 08/06/2019 12:00:00 AM EDT 1.0 {tablet} active Protonix 40 MG eCW1 ([facility]) Insulin, Aspart, Human 100 UNT/ML Inject able Solution [NovoLog] NovoLog 100 UNIT/ML NovoLog 100 UNIT/ML 08/06/2019 12:00:00 AM EDT active NovoLog 100 UNIT/ML eCW1 ([facility]) Acetaminophen 500 MG Oral Tablet Acetaminophen 500 MG 2019 12:00:00 AM EDT 1.0 {tablet_as_needed} active A cetaminophen 500 MG eCW1 ([facility]) Prednisone 5 MG Oral Tablet PredniSONE 5 MG PredniSONE 5 MG 08/06/2019 12:00:00 AM EDT 1.0 {tablet} active PredniSONE 5 MG eCW1 ([facility]) pantoprazole 40 MG Delayed Release Oral Tablet [Proton ix] Protonix 40 MG Protonix 40 MG 08/06/2019 12:00:00 AM EDT 1.0 {tablet} active Protonix 40 MG eCW1 ([facility]) Insulin, Aspart, Human 100 UNT/ML Inject able Solution [NovoLog] NovoLog 100 UNIT/ML NovoLog 100 UNIT/ML 08/06/2019 12:00:00 AM EDT suspended NovoLog 100 UNIT/ML eCW1 ([facility]) latanoprost 0.05 MG/ML Ophthalmic Solution Latanoprost 0.005 % Latanoprost 0.005 % 08/06/2019 12:00:00 AM EDT 1.0 {drop_into_affected_eye_in_ the_evening} active Latanoprost 0.005 % eCW1 ([facility]) Acetaminophen 500 MG Oral Tablet Acetaminophen 500 MG 2019 12:00:00 AM EDT 1.0 {tablet_as_needed} active A cetaminophen 500 MG eCW1 ([facility]) Acetaminophen 500 MG Oral Tablet Acetaminophen 500 MG 2019 12:00:00 AM EDT 1.0 {tablet_as_needed} active A cetaminophen 500 MG eCW1 ([facility]) Prednisone 5 MG Oral Tablet PredniSONE 5 MG PredniSONE 5 MG 08/06/2019 12:00:00 AM EDT 1.0 {tablet} active PredniSONE 5 MG eCW1 ([facility]) Acetaminophen 500 MG Oral Tablet Acetaminophen 500 MG 2019 12:00:00 AM EDT 1.0 {tablet_as_needed} active A cetaminophen 500 MG eCW1 ([facility]) Acetaminophen 500 MG Oral Tablet Acetaminophen 500 MG 2019 12:00:00 AM EDT active 1 tablet as neede d eCW1 ([facility]) pantoprazole 40 MG Delayed Release Oral Tablet [Proton ix] Protonix 40 MG Protonix 40 MG 08/06/2019 12:00:00 AM EDT 1.0 {tablet} suspended Protonix 40 MG eCW1 ([facility]) Prednisone 5 MG Oral Tablet PredniSONE 5 MG PredniSONE 5 MG 08/06/2019 12:00:00 AM EDT 1.0 {tablet} active PredniSONE 5 MG eCW1 ([facility]) Insulin, Aspart, Human 100 UNT/ML Inject able Solution [NovoLog] NovoLog 100 UNIT/ML NovoLog 100 UNIT/ML 08/06/2019 12:00:00 AM EDT active NovoLog 100 UNIT/ML eCW1 ([facility]) latanoprost 0.05 MG/ML Ophthalmic Solution Latanoprost 0.005 % Latanoprost 0.005 % 08/06/2019 12:00:00 AM EDT active 1 drop into affected eye in the evening eCW1 ([facility]) Prednisone 5 MG Oral Tablet PredniSONE 5 MG PredniSONE 5 MG 08/06/2019 12:00:00 AM EDT 1.0 {tablet} active PredniSONE 5 MG eCW1 ([facility]) Sucralfate 1000 MG Oral Tablet Sucralfate 1 GM Sucralfate 1 GM 08/06/2019 12:00:00 AM EDT 1.0 {tablet_on_an_empty_stomach} active Sucralfate 1 GM eCW1 ([facility]) Acetaminophen 500 MG Oral Tablet Acetaminophen 500 MG 2019 12:00:00 AM EDT 1.0 {tablet_as_needed} active A cetaminophen 500 MG eCW1 ([facility]) Insulin, Aspart, Human 100 UNT/ML Inject able Solution [NovoLog] NovoLog 100 UNIT/ML NovoLog 100 UNIT/ML 08/06/2019 12:00:00 AM EDT active NovoLog 100 UNIT/ML eCW1 ([facility]) Insulin, Aspart, Human 100 UNT/ML Inject able Solution [NovoLog] NovoLog 100 UNIT/ML NovoLog 100 UNIT/ML 08/06/2019 12:00:00 AM EDT suspended NovoLog 100 UNIT/ML eCW1 ([facility]) pantoprazole 40 MG Delayed Release Oral Tablet [Proton ix] Protonix 40 MG Protonix 40 MG 08/06/2019 12:00:00 AM EDT active 1 tablet eCW1 ([facility]) Insulin, Aspart, Human 100 UNT/ML Inject able Solution [NovoLog] NovoLog 100 UNIT/ML NovoLog 100 UNIT/ML 08/06/2019 12:00:00 AM EDT suspended NovoLog 100 UNIT/ML eCW1 ([facility]) Prednisone 5 MG Oral Tablet PredniSONE 5 MG PredniSONE 5 MG 08/06/2019 12:00:00 AM EDT 1.0 {tablet} active PredniSONE 5 MG eCW1 ([facility]) Prednisone 5 MG Oral Tablet PredniSONE 5 MG PredniSONE 5 MG 08/06/2019 12:00:00 AM EDT 1.0 {tablet} active PredniSONE 5 MG eCW1 ([facility]) Sucralfate 1000 MG Oral Tablet Sucralfate 1 GM Sucralfate 1 GM 08/06/2019 12:00:00 AM EDT 1.0 {tablet_on_an_empty_stomach} active Sucralfate 1 GM eCW1 ([facility]) Prednisone 5 MG Oral Tablet PredniSONE 5 MG PredniSONE 5 MG 08/06/2019 12:00:00 AM EDT 1.0 {tablet} active PredniSONE 5 MG eCW1 ([facility]) Insulin, Aspart, Human 100 UNT/ML Inject able Solution [NovoLog] NovoLog 100 UNIT/ML NovoLog 100 UNIT/ML 08/06/2019 12:00:00 AM EDT active as directed eCW1 ([facility]) latanoprost 0.05 MG/ML Ophthalmic Solution Latanoprost 0.005 % Latanoprost 0.005 % 08/06/2019 12:00:00 AM EDT 1.0 {drop_into_affected_eye_in_ the_evening} active Latanoprost 0.005 % eCW1 ([facility]) Insulin, Aspart, Human 100 UNT/ML Inject able Solution [NovoLog] NovoLog 100 UNIT/ML NovoLog 100 UNIT/ML 08/06/2019 12:00:00 AM EDT suspended NovoLog 100 UNIT/ML eCW1 ([facility]) pantoprazole 40 MG Delayed Release Oral Tablet [Proton ix] Protonix 40 MG Protonix 40 MG 08/06/2019 12:00:00 AM EDT 1.0 {tablet} active Protonix 40 MG eCW1 ([facility]) Insulin, Aspart, Human 100 UNT/ML Inject able Solution [NovoLog] NovoLog 100 UNIT/ML NovoLog 100 UNIT/ML 08/06/2019 12:00:00 AM EDT suspended NovoLog 100 UNIT/ML eCW1 ([facility]) Acetaminophen 500 MG Oral Tablet Acetaminophen 500 MG 2019 12:00:00 AM EDT 1.0 {tablet_as_needed} active A cetaminophen 500 MG eCW1 ([facility]) pantoprazole 40 MG Delayed Release Oral Tablet [Proton ix] Protonix 40 MG Protonix 40 MG 08/06/2019 12:00:00 AM EDT 1.0 {tablet} suspended Protonix 40 MG eCW1 ([facility]) Insulin, Aspart, Human 100 UNT/ML Inject able Solution [NovoLog] NovoLog 100 UNIT/ML NovoLog 100 UNIT/ML 08/06/2019 12:00:00 AM EDT suspended NovoLog 100 UNIT/ML eCW1 ([facility]) Prednisone 5 MG Oral Tablet PredniSONE 5 MG PredniSONE 5 MG 08/06/2019 12:00:00 AM EDT 1.0 {tablet} active PredniSONE 5 MG eCW1 ([facility]) Prednisone 5 MG Oral Tablet PredniSONE 5 MG PredniSONE 5 MG 08/06/2019 12:00:00 AM EDT 1.0 {tablet} active PredniSONE 5 MG eCW1 ([facility]) pantoprazole 40 MG Delayed Release Oral Tablet [Proton ix] Protonix 40 MG Protonix 40 MG 08/06/2019 12:00:00 AM EDT 1.0 {tablet} suspended Protonix 40 MG eCW1 ([facility]) latanoprost 0.05 MG/ML Ophthalmic Solution Latanoprost 0.005 % Latanoprost 0.005 % 08/06/2019 12:00:00 AM EDT 1.0 {drop_into_affected_eye_in_ the_evening} active Latanoprost 0.005 % eCW1 ([facility]) Insulin, Aspart, Human 100 UNT/ML Inject able Solution [NovoLog] NovoLog 100 UNIT/ML NovoLog 100 UNIT/ML 08/06/2019 12:00:00 AM EDT suspended NovoLog 100 UNIT/ML eCW1 ([facility]) latanoprost 0.05 MG/ML Ophthalmic Solution Latanoprost 0.005 % Latanoprost 0.005 % 08/06/2019 12:00:00 AM EDT 1.0 {drop_into_affected_eye_in_ the_evening} active Latanoprost 0.005 % eCW1 ([facility]) Prednisone 5 MG Oral Tablet PredniSONE 5 MG PredniSONE 5 MG 08/06/2019 12:00:00 AM EDT 1.0 {tablet} active PredniSONE 5 MG eCW1 ([facility]) latanoprost 0.05 MG/ML Ophthalmic Solution Latanoprost 0.005 % Latanoprost 0.005 % 08/06/2019 12:00:00 AM EDT 1.0 {drop_into_affected_eye_in_ the_evening} active Latanoprost 0.005 % eCW1 ([facility]) latanoprost 0.05 MG/ML Ophthalmic Solution Latanoprost 0.005 % Latanoprost 0.005 % 08/06/2019 12:00:00 AM EDT 1.0 {drop_into_affected_eye_in_ the_evening} active Latanoprost 0.005 % eCW1 ([facility]) Acetaminophen 500 MG Oral Tablet Acetaminophen 500 MG 2019 12:00:00 AM EDT 1.0 {tablet_as_needed} active A cetaminophen 500 MG eCW1 ([facility]) Insulin, Aspart, Human 100 UNT/ML Inject able Solution [NovoLog] NovoLog 100 UNIT/ML NovoLog 100 UNIT/ML 08/06/2019 12:00:00 AM EDT suspended NovoLog 100 UNIT/ML eCW1 ([facility]) Sucralfate 1000 MG Oral Tablet Sucralfate 1 GM Sucralfate 1 GM 08/06/2019 12:00:00 AM EDT 1.0 {tablet_on_an_empty_stomach} active Sucralfate 1 GM eCW1 ([facility]) Sucralfate 1000 MG Oral Tablet Sucralfate 1 GM Sucralfate 1 GM 08/06/2019 12:00:00 AM EDT 1.0 {tablet_on_an_empty_stomach} active Sucralfate 1 GM eCW1 ([facility]) Acetaminophen 500 MG Oral Tablet Acetaminophen 500 MG 2019 12:00:00 AM EDT 1.0 {tablet_as_needed} active A cetaminophen 500 MG eCW1 ([facility]) latanoprost 0.05 MG/ML Ophthalmic Solution Latanoprost 0.005 % Latanoprost 0.005 % 08/06/2019 12:00:00 AM EDT 1.0 {drop_into_affected_eye_in_ the_evening} active Latanoprost 0.005 % eCW1 ([facility]) latanoprost 0.05 MG/ML Ophthalmic Solution Latanoprost 0.005 % Latanoprost 0.005 % 08/06/2019 12:00:00 AM EDT 1.0 {drop_into_affected_eye_in_ the_evening} active Latanoprost 0.005 % eCW1 ([facility]) Sucralfate 1000 MG Oral Tablet Sucralfate 1 GM Sucralfate 1 GM 08/06/2019 12:00:00 AM EDT 1.0 {tablet_on_an_empty_stomach} active Sucralfate 1 GM eCW1 ([facility]) Prednisone 5 MG Oral Tablet PredniSONE 5 MG PredniSONE 5 MG 08/06/2019 12:00:00 AM EDT 1.0 {tablet} active PredniSONE 5 MG eCW1 ([facility]) Insulin, Aspart, Human 100 UNT/ML Inject able Solution [NovoLog] NovoLog 100 UNIT/ML NovoLog 100 UNIT/ML 08/06/2019 12:00:00 AM EDT suspended NovoLog 100 UNIT/ML eCW1 ([facility]) pantoprazole 40 MG Delayed Release Oral Tablet [Proton ix] Protonix 40 MG Protonix 40 MG 08/06/2019 12:00:00 AM EDT 1.0 {tablet} suspended Protonix 40 MG eCW1 ([facility]) Sucralfate 1000 MG Oral Tablet Sucralfate 1 GM Sucralfate 1 GM 08/06/2019 12:00:00 AM EDT 1.0 {tablet_on_an_empty_stomach} active Sucralfate 1 GM eCW1 ([facility]) pantoprazole 40 MG Delayed Release Oral Tablet [Proton ix] Protonix 40 MG Protonix 40 MG 08/06/2019 12:00:00 AM EDT 1.0 {tablet} active Protonix 40 MG eCW1 ([facility]) Sucralfate 1000 MG Oral Tablet Sucralfate 1 GM Sucralfate 1 GM 08/06/2019 12:00:00 AM EDT 1.0 {tablet_on_an_empty_stomach} active Sucralfate 1 GM eCW1 ([facility]) Sucralfate 1000 MG Oral Tablet Sucralfate 1 GM Sucralfate 1 GM 08/06/2019 12:00:00 AM EDT 1.0 {tablet_on_an_empty_stomach} active Sucralfate 1 GM eCW1 ([facility]) Sucralfate 1000 MG Oral Tablet Sucralfate 1 GM Sucralfate 1 GM 08/06/2019 12:00:00 AM EDT 1.0 {tablet_on_an_empty_stomach} active Sucralfate 1 GM eCW1 ([facility]) Acetaminophen 500 MG Oral Tablet Acetaminophen 500 MG 2019 12:00:00 AM EDT 1.0 {tablet_as_needed} active A cetaminophen 500 MG eCW1 ([facility]) pantoprazole 40 MG Delayed Release Oral Tablet [Proton ix] Protonix 40 MG Protonix 40 MG 08/06/2019 12:00:00 AM EDT 1.0 {tablet} active Protonix 40 MG eCW1 ([facility]) Sucralfate 1000 MG Oral Tablet Sucralfate 1 GM Sucralfate 1 GM 08/06/2019 12:00:00 AM EDT 1.0 {tablet_on_an_empty_stomach} active Sucralfate 1 GM eCW1 ([facility]) Sucralfate 1000 MG Oral Tablet Sucralfate 1 GM Sucralfate 1 GM 08/06/2019 12:00:00 AM EDT 1.0 {tablet_on_an_empty_stomach} active Sucralfate 1 GM eCW1 ([facility]) Acetaminophen 500 MG Oral Tablet Acetaminophen 500 MG 2019 12:00:00 AM EDT 1.0 {tablet_as_needed} active A cetaminophen 500 MG eCW1 ([facility]) pantoprazole 40 MG Delayed Release Oral Tablet [Proton ix] Protonix 40 MG Protonix 40 MG 08/06/2019 12:00:00 AM EDT 1.0 {tablet} active Protonix 40 MG eCW1 ([facility]) Sucralfate 1000 MG Oral Tablet Sucralfate 1 GM Sucralfate 1 GM 08/06/2019 12:00:00 AM EDT 1.0 {tablet_on_an_empty_stomach} active Sucralfate 1 GM eCW1 ([facility]) pantoprazole 40 MG Delayed Release Oral Tablet [Proton ix] Protonix 40 MG Protonix 40 MG 08/06/2019 12:00:00 AM EDT 1.0 {tablet} suspended Protonix 40 MG eCW1 ([facility] [facility] Insulin, Aspart, Human 100 UNT/ML Inject able Solution [NovoLog] NovoLog 100 UNIT/ML NovoLog 100 UNIT/ML 08/06/2019 12:00:00 AM EDT suspended NovoLog 100 UNIT/ML eCW1 ([facility]) latanoprost 0.05 MG/ML Ophthalmic Solution Latanoprost 0.005 % Latanoprost 0.005 % 08/06/2019 12:00:00 AM EDT 1.0 {drop_into_affected_eye_in_ the_evening} active Latanoprost 0.005 % eCW1 ([facility]) Insulin, Aspart, Human 100 UNT/ML Inject able Solution [NovoLog] NovoLog 100 UNIT/ML NovoLog 100 UNIT/ML 08/06/2019 12:00:00 AM EDT suspended NovoLog 100 UNIT/ML eCW1 ([facility]) Sucralfate 1000 MG Oral Tablet Sucralfate 1 GM Sucralfate 1 GM 08/06/2019 12:00:00 AM EDT 1.0 {tablet_on_an_empty_stomach} active Sucralfate 1 GM eCW1 ([facility]) Insulin, Aspart, Human 100 UNT/ML Inject able Solution [NovoLog] NovoLog 100 UNIT/ML NovoLog 100 UNIT/ML 08/06/2019 12:00:00 AM EDT active NovoLog 100 UNIT/ML eCW1 ([facility]) Sucralfate 1000 MG Oral Tablet Sucralfate 1 GM Sucralfate 1 GM 08/06/2019 12:00:00 AM EDT 1.0 {tablet_on_an_empty_stomach} active Sucralfate 1 GM eCW1 ([facility]) Prednisone 5 MG Oral Tablet PredniSONE 5 MG PredniSONE 5 MG 08/06/2019 12:00:00 AM EDT 1.0 {tablet} active PredniSONE 5 MG eCW1 ([facility]) pantoprazole 40 MG Delayed Release Oral Tablet [Proton ix] Protonix 40 MG Protonix 40 MG 08/06/2019 12:00:00 AM EDT 1.0 {tablet} suspended Protonix 40 MG eCW1 ([facility]) pantoprazole 40 MG Delayed Release Oral Tablet [Proton ix] Protonix 40 MG Protonix 40 MG 08/06/2019 12:00:00 AM EDT 1.0 {tablet} active Protonix 40 MG eCW1 ([facility]) Sucralfate 1000 MG Oral Tablet Sucralfate 1 GM Sucralfate 1 GM 08/06/2019 12:00:00 AM EDT 1.0 {tablet_on_an_empty_stomach} active Sucralfate 1 GM eCW1 ([facility]) Prednisone 5 MG Oral Tablet PredniSONE 5 MG PredniSONE 5 MG 08/06/2019 12:00:00 AM EDT 1.0 {tablet} active PredniSONE 5 MG eCW1 ([facility]) Prednisone 5 MG Oral Tablet PredniSONE 5 MG PredniSONE 5 MG 08/06/2019 12:00:00 AM EDT 1.0 {tablet} active PredniSONE 5 MG eCW1 ([facility]) Acetaminophen 500 MG Oral Tablet Acetaminophen 500 MG 2019 12:00:00 AM EDT 1.0 {tablet_as_needed} active A cetaminophen 500 MG eCW1 ([facility]) pantoprazole 40 MG Delayed Release Oral Tablet [Proton ix] Protonix 40 MG Protonix 40 MG 08/06/2019 12:00:00 AM EDT 1.0 {tablet} suspended Protonix 40 MG eCW1 ([facility]) Prednisone 5 MG Oral Tablet PredniSONE 5 MG PredniSONE 5 MG 08/06/2019 12:00:00 AM EDT 1.0 {tablet} active PredniSONE 5 MG eCW1 ([facility]) pantoprazole 40 MG Delayed Release Oral Tablet [Proton ix] Protonix 40 MG Protonix 40 MG 08/06/2019 12:00:00 AM EDT active 1 tablet eCW1 ([facility]) Sucralfate 1000 MG Oral Tablet Sucralfate 1 GM Sucralfate 1 GM 08/06/2019 12:00:00 AM EDT 1.0 {tablet_on_an_empty_stomach} active Sucralfate 1 GM eCW1 ([facility]) Acetaminophen 500 MG Oral Tablet Acetaminophen 500 MG 2019 12:00:00 AM EDT 1.0 {tablet_as_needed} active A cetaminophen 500 MG eCW1 ([facility]) latanoprost 0.05 MG/ML Ophthalmic Solution Latanoprost 0.005 % Latanoprost 0.005 % 08/06/2019 12:00:00 AM EDT 1.0 {drop_into_affected_eye_in_ the_evening} active Latanoprost 0.005 % eCW1 ([facility]) Prednisone 5 MG Oral Tablet PredniSONE 5 MG PredniSONE 5 MG 08/06/2019 12:00:00 AM EDT 1.0 {tablet} active PredniSONE 5 MG eCW1 ([facility]) latanoprost 0.05 MG/ML Ophthalmic Solution Latanoprost 0.005 % Latanoprost 0.005 % 08/06/2019 12:00:00 AM EDT 1.0 {drop_into_affected_eye_in_ the_evening} active Latanoprost 0.005 % eCW1 ([facility]) latanoprost 0.05 MG/ML Ophthalmic Solution Latanoprost 0.005 % Latanoprost 0.005 % 08/06/2019 12:00:00 AM EDT 1.0 {drop_into_affected_eye_in_ the_evening} active Latanoprost 0.005 % eCW1 ([facility]) pantoprazole 40 MG Delayed Release Oral Tablet [Proton ix] Protonix 40 MG Protonix 40 MG 08/06/2019 12:00:00 AM EDT 1.0 {tablet} suspended Protonix 40 MG eCW1 ([facility]) Insulin, Aspart, Human 100 UNT/ML Inject able Solution [NovoLog] NovoLog 100 UNIT/ML NovoLog 100 UNIT/ML 08/06/2019 12:00:00 AM EDT active NovoLog 100 UNIT/ML eCW1 ([facility]) Sucralfate 1000 MG Oral Tablet Sucralfate 1 GM Sucralfate 1 GM 08/06/2019 12:00:00 AM EDT 1.0 {tablet_on_an_empty_stomach} active Sucralfate 1 GM eCW1 ([facility]) latanoprost 0.05 MG/ML Ophthalmic Solution Latanoprost 0.005 % Latanoprost 0.005 % 08/06/2019 12:00:00 AM EDT 1.0 {drop_into_affected_eye_in_ the_evening} active Latanoprost 0.005 % eCW1 ([facility]) Acetaminophen 500 MG Oral Tablet Acetaminophen 500 MG 2019 12:00:00 AM EDT 1.0 {tablet_as_needed} active A cetaminophen 500 MG eCW1 ([facility]) Insulin, Aspart, Human 100 UNT/ML Inject able Solution [NovoLog] NovoLog 100 UNIT/ML NovoLog 100 UNIT/ML 08/06/2019 12:00:00 AM EDT suspended NovoLog 100 UNIT/ML eCW1 ([facility]) Acetaminophen 500 MG Oral Tablet Acetaminophen 500 MG 2019 12:00:00 AM EDT 1.0 {tablet_as_needed} active A cetaminophen 500 MG eCW1 ([facility]) Insulin, Aspart, Human 100 UNT/ML Inject able Solution [NovoLog] NovoLog 100 UNIT/ML NovoLog 100 UNIT/ML 08/06/2019 12:00:00 AM EDT suspended NovoLog 100 UNIT/ML eCW1 ([facility]) Acetaminophen 500 MG Oral Tablet Acetaminophen 500 MG 2019 12:00:00 AM EDT 1.0 {tablet_as_needed} active A cetaminophen 500 MG eCW1 ([facility]) Acetaminophen 500 MG Oral Tablet Acetaminophen 500 MG 2019 12:00:00 AM EDT 1.0 {tablet_as_needed} active A cetaminophen 500 MG eCW1 ([facility]) Prednisone 5 MG Oral Tablet PredniSONE 5 MG PredniSONE 5 MG 08/06/2019 12:00:00 AM EDT 1.0 {tablet} active PredniSONE 5 MG eCW1 ([facility]) Sucralfate 1000 MG Oral Tablet Sucralfate 1 GM Sucralfate 1 GM 08/06/2019 12:00:00 AM EDT 1.0 {tablet_on_an_empty_stomach} active Sucralfate 1 GM eCW1 ([facility]) Sucralfate 1000 MG Oral Tablet Sucralfate 1 GM Sucralfate 1 GM 08/06/2019 12:00:00 AM EDT 1.0 {tablet_on_an_empty_stomach} active Sucralfate 1 GM eCW1 ([facility]) Prednisone 5 MG Oral Tablet PredniSONE 5 MG PredniSONE 5 MG 08/06/2019 12:00:00 AM EDT 1.0 {tablet} active PredniSONE 5 MG eCW1 ([facility]) Insulin, Aspart, Human 100 UNT/ML Inject able Solution [NovoLog] NovoLog 100 UNIT/ML NovoLog 100 UNIT/ML 08/06/2019 12:00:00 AM EDT suspended NovoLog 100 UNIT/ML eCW1 ([facility]) Acetaminophen 500 MG Oral Tablet Acetaminophen 500 MG 2019 12:00:00 AM EDT 1.0 {tablet_as_needed} active A cetaminophen 500 MG eCW1 ([facility]) Prednisone 5 MG Oral Tablet PredniSONE 5 MG PredniSONE 5 MG 08/06/2019 12:00:00 AM EDT 1.0 {tablet} active PredniSONE 5 MG eCW1 ([facility]) latanoprost 0.05 MG/ML Ophthalmic Solution Latanoprost 0.005 % Latanoprost 0.005 % 08/06/2019 12:00:00 AM EDT 1.0 {drop_into_affected_eye_in_ the_evening} active Latanoprost 0.005 % eCW1 ([facility]) Insulin, Aspart, Human 100 UNT/ML Inject able Solution [NovoLog] NovoLog 100 UNIT/ML NovoLog 100 UNIT/ML 08/06/2019 12:00:00 AM EDT active NovoLog 100 UNIT/ML eCW1 ([facility]) pantoprazole 40 MG Delayed Release Oral Tablet [Proton ix] Protonix 40 MG Protonix 40 MG 08/06/2019 12:00:00 AM EDT 1.0 {tablet} active Protonix 40 MG eCW1 ([facility]) Insulin, Aspart, Human 100 UNT/ML Inject able Solution [NovoLog] NovoLog 100 UNIT/ML NovoLog 100 UNIT/ML 08/06/2019 12:00:00 AM EDT active as directed eCW1 ([facility]) latanoprost 0.05 MG/ML Ophthalmic Solution Latanoprost 0.005 % Latanoprost 0.005 % 08/06/2019 12:00:00 AM EDT 1.0 {drop_into_affected_eye_in_ the_evening} active Latanoprost 0.005 % eCW1 ([facility]) Insulin, Aspart, Human 100 UNT/ML Inject able Solution [NovoLog] NovoLog 100 UNIT/ML NovoLog 100 UNIT/ML 08/06/2019 12:00:00 AM EDT active NovoLog 100 UNIT/ML eCW1 ([facility]) latanoprost 0.05 MG/ML Ophthalmic Solution Latanoprost 0.005 % Latanoprost 0.005 % 08/06/2019 12:00:00 AM EDT 1.0 {drop_into_affected_eye_in_ the_evening} active Latanoprost 0.005 % eCW1 ([facility]) pantoprazole 40 MG Delayed Release Oral Tablet [Proton ix] Protonix 40 MG Protonix 40 MG 08/06/2019 12:00:00 AM EDT 1.0 {tablet} active Protonix 40 MG eCW1 ([facility]) Prednisone 5 MG Oral Tablet PredniSONE 5 MG PredniSONE 5 MG 08/06/2019 12:00:00 AM EDT 1.0 {tablet} active PredniSONE 5 MG eCW1 ([facility]) Sucralfate 1000 MG Oral Tablet Sucralfate 1 GM Sucralfate 1 GM 08/06/2019 12:00:00 AM EDT 1.0 {tablet_on_an_empty_stomach} active Sucralfate 1 GM eCW1 ([facility]) latanoprost 0.05 MG/ML Ophthalmic Solution Latanoprost 0.005 % Latanoprost 0.005 % 08/06/2019 12:00:00 AM EDT 1.0 {drop_into_affected_eye_in_ the_evening} active Latanoprost 0.005 % eCW1 ([facility]) Insulin, Aspart, Human 100 UNT/ML Inject able Solution [NovoLog] NovoLog 100 UNIT/ML NovoLog 100 UNIT/ML 08/06/2019 12:00:00 AM EDT suspended NovoLog 100 UNIT/ML eCW1 ([facility]) Sucralfate 1000 MG Oral Tablet Sucralfate 1 GM Sucralfate 1 GM 08/06/2019 12:00:00 AM EDT 1.0 {tablet_on_an_empty_stomach} active Sucralfate 1 GM eCW1 ([facility]) pantoprazole 40 MG Delayed Release Oral Tablet [Proton ix] Protonix 40 MG Protonix 40 MG 08/06/2019 12:00:00 AM EDT 1.0 {tablet} suspended Protonix 40 MG eCW1 ([facility]) Prednisone 5 MG Oral Tablet PredniSONE 5 MG PredniSONE 5 MG 08/06/2019 12:00:00 AM EDT 1.0 {tablet} active PredniSONE 5 MG eCW1 ([facility]) Citalopram 40 MG Oral Tablet [Celexa] Celexa 40 MG Celexa 40 MG 04/17/2019 12:00:00 AM EST active 1 tab e CW1 ([facility]) Citalopram 40 MG Oral Tablet [Celexa] Celexa 40 MG Celexa 40 MG 04/17/2019 12:00:00 AM EST active Celexa 4 0 MG eCW1 ([facility]) Citalopram 40 MG Oral Tablet [Celexa] Celexa 40 MG Celexa 40 MG 04/17/2019 12:00:00 AM EST active Celexa 4 0 MG eCW1 ([facility]) Citalopram 40 MG Oral Tablet [Celexa] Celexa 40 MG Celexa 40 MG 04/17/2019 12:00:00 AM EST active Celexa 4 0 MG eCW1 ([facility]) Celexa 40 MG UNK 04/17/2019 12:00:00 AM EST activ e 1 tab eCW1 ([facility]) Citalopram 40 MG Oral Tablet [Celexa] Celexa 40 MG Celexa 40 MG 04/17/2019 12:00:00 AM EST active Celexa 4 0 MG eCW1 ([facility]) Citalopram 40 MG Oral Tablet [Celexa] Celexa 40 MG Celexa 40 MG 04/17/2019 12:00:00 AM EST active Celexa 4 0 MG eCW1 ([facility]) Citalopram 40 MG Oral Tablet [Celexa] Celexa 40 MG Celexa 40 MG 04/17/2019 12:00:00 AM EST active Celexa 4 0 MG eCW1 ([facility]) Citalopram 40 MG Oral Tablet [Celexa] Celexa 40 MG Celexa 40 MG 04/17/2019 12:00:00 AM EST active 1 tab e CW1 ([facility]) Citalopram 40 MG Oral Tablet [Celexa] Celexa 40 MG Celexa 40 MG 04/17/2019 12:00:00 AM EST active 1 tab e CW1 ([facility]) Citalopram 40 MG Oral Tablet [Celexa] Celexa 40 MG Celexa 40 MG 04/17/2019 12:00:00 AM EST active Celexa 4 0 MG eCW1 ([facility]) Citalopram 40 MG Oral Tablet [Celexa] Celexa 40 MG Celexa 40 MG 04/17/2019 12:00:00 AM EST active Celexa 4 0 MG eCW1 ([facility]) Citalopram 40 MG Oral Tablet [Celexa] Celexa 40 MG Celexa 40 MG 04/17/2019 12:00:00 AM EST active Celexa 4 0 MG eCW1 ([facility]) Citalopram 40 MG Oral Tablet [Celexa] Celexa 40 MG Celexa 40 MG 04/17/2019 12:00:00 AM EST active Celexa 4 0 MG eCW1 ([facility]) Citalopram 40 MG Oral Tablet [Celexa] Celexa 40 MG Celexa 40 MG 04/17/2019 12:00:00 AM EST active Celexa 4 0 MG eCW1 ([facility]) Citalopram 40 MG Oral Tablet [Celexa] Celexa 40 MG Celexa 40 MG 04/17/2019 12:00:00 AM EST active Celexa 4 0 MG eCW1 ([facility]) Citalopram 40 MG Oral Tablet [Celexa] Celexa 40 MG Celexa 40 MG 04/17/2019 12:00:00 AM EST active Celexa 4 0 MG eCW1 ([facility]) Citalopram 40 MG Oral Tablet [Celexa] Celexa 40 MG Celexa 40 MG 04/17/2019 12:00:00 AM EST active Celexa 4 0 MG eCW1 ([facility]) Citalopram 40 MG Oral Tablet [Celexa] Celexa 40 MG Celexa 40 MG 04/17/2019 12:00:00 AM EST active Celexa 4 0 MG eCW1 ([facility]) Citalopram 40 MG Oral Tablet [Celexa] Celexa 40 MG Celexa 40 MG 04/17/2019 12:00:00 AM EST active Celexa 4 0 MG eCW1 ([facility]) Citalopram 40 MG Oral Tablet [Celexa] Celexa 40 MG Celexa 40 MG 04/17/2019 12:00:00 AM EST active Celexa 4 0 MG eCW1 ([facility]) Citalopram 40 MG Oral Tablet [Celexa] Celexa 40 MG Celexa 40 MG 04/17/2019 12:00:00 AM EST active Celexa 4 0 MG eCW1 ([facility]) Citalopram 40 MG Oral Tablet [Celexa] Celexa 40 MG Celexa 40 MG 04/17/2019 12:00:00 AM EST active Celexa 4 0 MG eCW1 ([facility]) Citalopram 40 MG Oral Tablet [Celexa] Celexa 40 MG Celexa 40 MG 04/17/2019 12:00:00 AM EST active Celexa 4 0 MG eCW1 ([facility]) Citalopram 40 MG Oral Tablet [Celexa] Celexa 40 MG Celexa 40 MG 04/17/2019 12:00:00 AM EST active 1 tab e CW1 ([facility]) Citalopram 40 MG Oral Tablet [Celexa] Celexa 40 MG Celexa 40 MG 04/17/2019 12:00:00 AM EST active Celexa 4 0 MG eCW1 ([facility]) Citalopram 40 MG Oral Tablet [Celexa] Celexa 40 MG Celexa 40 MG 04/17/2019 12:00:00 AM EST active Celexa 4 0 MG eCW1 ([facility]) Citalopram 40 MG Oral Tablet [Celexa] Celexa 40 MG Celexa 40 MG 04/17/2019 12:00:00 AM EST active Celexa 4 0 MG eCW1 ([facility]) Citalopram 40 MG Oral Tablet [Celexa] Celexa 40 MG Celexa 40 MG 04/17/2019 12:00:00 AM EST active Celexa 4 0 MG eCW1 ([facility]) Citalopram 40 MG Oral Tablet [Celexa] Celexa 40 MG Celexa 40 MG 04/17/2019 12:00:00 AM EST active Celexa 4 0 MG eCW1 ([facility]) Citalopram 40 MG Oral Tablet [Celexa] Celexa 40 MG Celexa 40 MG 04/17/2019 12:00:00 AM EST active Celexa 4 0 MG eCW1 ([facility]) Citalopram 40 MG Oral Tablet [Celexa] Celexa 40 MG Celexa 40 MG 04/17/2019 12:00:00 AM EST active Celexa 4 0 MG eCW1 ([facility]) Citalopram 40 MG Oral Tablet [Celexa] Celexa 40 MG Celexa 40 MG 04/17/2019 12:00:00 AM EST active Celexa 4 0 MG eCW1 ([facility]) Citalopram 40 MG Oral Tablet [Celexa] Celexa 40 MG Celexa 40 MG 04/17/2019 12:00:00 AM EST active Celexa 4 0 MG eCW1 ([facility]) Citalopram 40 MG Oral Tablet [Celexa] Celexa 40 MG Celexa 40 MG 04/17/2019 12:00:00 AM EST active Celexa 4 0 MG eCW1 ([facility]) Citalopram 40 MG Oral Tablet [Celexa] Celexa 40 MG Celexa 40 MG 04/17/2019 12:00:00 AM EST active Celexa 4 0 MG eCW1 ([facility]) Citalopram 40 MG Oral Tablet [Celexa] Celexa 40 MG Celexa 40 MG 04/17/2019 12:00:00 AM EST active Celexa 4 0 MG eCW1 ([facility]) Insurance Providers Payer name Policy type / Coverage type Policy ID Covered republican ID Covered republican's relationship to wright Policy Wright Plan Information MEDICARE COMPLETE [id number] SP [id number] EMEDNY [id number] SP [id number] MEDICARE COMPLETE [id number] SP [id number] [employer] MEDICARE [id number] S [id number] MEDICAID [id number] S [id number] MEDICARE [id number] SP [id number] MEDICARE COMPLETE-C O [id number] S [id number] MEDICAID M [id number] S [id number] [employer] MEDICARE [id number] S [id number] [facility] MCR[facility]MO [id number] SP [id number] [facility] MCR[facility] [id number] SP [id number] MEDICARE [id number] SP [id number] WELLCARE [id number] SP [id number] EMEDNY [id number] SP [id number] MEDICARE [id number] SP [id number] MEDICARE COMPLETE [id number] SP [id number] MEDICARE COMPLETE [id number] SP [id number] WELLCARE [id number] SP [id number] WELLCARE [id number] SP [id number] WELLCARE O [id number] S [id number] WELLCARE [id number] S [id number] WELLCARE O [id number] S [id number] MEDICARE [id number] SP [id number] MEDICAID [id number] SP [id number] MEDICARE C [id number] S [id number] H38 MEDICAID [id number] SP [id number] WELLCARE [id number] S [id number] [id number] MEDICARE [id number] S [id number] WELLCARE [id number] S [id number] MEDICARE -RECURRING [id number] 18 [id number] MEDICAID -RECURRING [id number] ANSI-Medicaid [id number] ANSI-Medicare Part B [id number] ANSI-Medicaid [id number] ANSI-Medicare Part B [id number] ANSI-Medicare Part B [id number] ANSI-Medicaid [id number] ANSI-Medicare Part B [id number] ANSI-Medicaid [id number] ANSI-Medicaid [id number] ANSI-Medicare Part B [id number] ANSI-Medicaid [id number] ANSI-Medicare Part B [id number] ANSI-Medicaid [id number] ANSI-Medicare Part B [id number] ANSI-Medicaid [id number] ANSI-Medicare Part B [id number] ANSI-Medicare Part B [id number] ANSI-Medicaid [id number] ANSI-Medicare Part B [id number] ANSI-Medicaid [id number] ANSI-Medicare Part B [id number] ANSI-Medicaid [id number] ANSI-Medicare Part B [id number] ANSI-Medicaid [id number] ANSI-Medicaid [id number] ANSI-Medicare Part B [id number] ANSI-Medicare Part B [id number] ANSI-Medicaid [id number] MEDICARE -[facility] [id number] ANSI-Medicaid [id number] ANSI-Medicare Part B [id number] ANSI-Medicaid [id number] ANSI-Medicare Part B [id number] ANSI-Medicare Part B [id number] ANSI-Medicaid [id number] Medicaid [place] Medigap Part B [id number] Self [id number] [place] Medicare Primary [id number] Self [id number] ANSI-Medicare Part B [id number] ANSI-Medicaid [id number] ANSI-Medicaid [id number] ANSI-Medicare Part B [id number] ANSI-Medicaid [id number] ANSI-Medicare Part B [id number] ANSI-Medicare Part B [id number] ANSI-Medicaid [id number] ANSI-Medicare Part B [id number] ANSI-Medicaid [id number] MEDICARE [id number] ANSI-Medicare Part B [id number] ANSI-Medicaid [id number] ANSI-Medicaid [id number] ANSI-Medicare Part B [id number] ANSI-Medicare Part B [id number] [facility]-Medicaid [id number] [facility]-Medicaid [id number] ANSI-Medicare Part B [id number] [facility]-Medicaid [id number] ANSI-Medicare Part B [id number] ANSI-Medicare Part B [id number] ANS-Medicaid [id number] [facility]-Medicaid [id number] ANSI-Medicare Part B [id number] ANSI-Medicaid [id number] ANSI-Medicare Part B [id number] ANSI-Medicaid [id number] ANSI-Medicare Part B [id number] ANSI-Medicaid [id number] ANSI-Medicare Part B [id number] ANSI-Medicaid [id number] ANSI-Medicare Part B [id number] ANSI-Medicare Part B [id number] ANSI-Medicaid [id number] MEDICARE [id number] SP [id number] A ANSI-Medicare Part B [id number] ANSI-Medicaid [id number] [employer] RHONDA [id number] SELF [id number] MEDICARE [id number] SELF [id number] A MEDICARE PART A [id number] Patient [id number] [employer] RHONDA UNAVAILABLE SELF UNAVAILABLE PERSONAL PAY UNAVAILABLE SELF UNAVA ILABLE MEDICARE C [id number] S [id number] [place] MEDICARE PART B C [id number] S [id number] MEDICAID [id number] [place] B [id number] Self [id number] [place] Primary [id number] Self [id number] [facility] C [id number] S [id number] Medicaid [place] Med[place] Part B [id number] Self [id number] [place] Primary [id number] Self [id number] [place] [id number] Self [id number] [place] Primary [id number] Self [id number] MEDICAID [id number] SP [id number] MEDICAID [id number] SP [id number] MEDICAID [id number] Self [id number] MEDICARE A [id number] Self [id number] MEDICAID -O/P [id number] MEDICARE -O/P [id number] 18 [id number] OTHER WORKERS COMPENSATION [id number] SP [id number] MEDICAID -CLINIC [id number] 18 [id number] MEDICARE -CLINIC [id number] 18 13 [id number] WORKMANS COMPENSATION -O/ [id number] 18 [id number] MEDICAID -PHYSICIAN [id number] WORKMANS COMPENSATION -O/P [id number] 18 [id number] MEDICARE -PHYSICIAN [id number] 18 [id number] Problems, Conditions, and Diagnoses Code Display Name Description Problem Type Effective Dates Data Source(s) S88.111A [id number] Below-knee amputation of right lower extr emity Problem 04/06/2020 12:00:00 AM EST eCW1 ([facility]) Z89.512 [id number] 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 Problem 03/11/2020 12:00:00 AM EST eCW1 ([facility]) Z89.511 [id number] Acquired absence of right leg below knee Problem 03/11/2020 12:00:00 AM EST eCW1 ([facility]) S88.119A [id number] Amputation below knee Problem 02/24/2020 12: 00:00 AM EST eCW1 ([facility]) M86.9 [id number] Osteomyelitis of right foot, unspecif ied type Problem 02/19/2020 12:00:00 AM EST eCW1 ([facility]) [id number] O/E - Amputated left below knee O/E - Amputated left below knee Problem 01/26/2020 12:00:00 AM EDT [facility] ([facility] [id number] Pain in limb Pain in limb Problem 01/26/2020 12:00:00 A M EDT [facility] ([facility] [id number] Gangrenous disorder Gangrenous disorder Problem 1 12:00:00 AM EDT [facility] ([facility] [id number] Pressure ulcer of right foot stage 4 Pre ssure ulcer of right foot stage 4 Problem 01/26/2020 12:00:00 AM EDT [facility] ([facility] [id number] Type 2 diabetes mellitus with ulcer Type 2 diabetes mellitus with ulcer Problem 01/26/2020 12:00:00 AM EDT [facility] ([facility] L97.514 [id number] 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 Problem 12/31/2019 12:00:00 AM EDT eCW1 ([facility]) E11.621 [id number] Type 2 diabetes mellitus with foot ulcer Problem 12/31/2019 12:00:00 AM EDT eCW1 ([facility]) E10.69 [id number] Type 1 diabetes mellitus with ot her specified complication Problem 10/17/2019 12:00:00 AM EDT eCW1 ([facility]) L97.519 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 Non-pressure chronic ulcer of other part of right foot with unspecified severity Problem 09/18/2019 12:00:00 AM EDT eCW1 ([facility]) E10.621 Foot ulcer due to type 1 diabetes [facility] Type 1 diabetes mellitus with foot ulcer Problem 09/18/2019 12:00:00 AM EDT eCW1 ([facility]) 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 E10.65 Type 1 diabetes mellitus with hyperglyce sera TYPE 1 DIABETES MELLITUS WITH HYPERGLYCEMIA Diagnosis 03/02/2020 02:32:00 PM [facility] E27.40 Unspecified adrenocortical insufficiency UNSPECIFIED ADRENOCORTICAL INSUFFICIENCY Diagnosis 04/24/2019 03:04:00 PM [facility] Surgeries/Procedures Procedure Description Date Indications Data Source(s) Amputation Below Knee 03/03/2020 12:00:00 [facility] outpatient clinic visit for assessment and ma nagement of a patient Hospital Outpatient Clinic Visit 03/02/2020 12:00:00 AM [facility] COLLECTION VENOUS BLOOD VENIPUNCTURE ROUTINE VENIPUNCTURE 12:00:00 AM [facility] HEMOGLOBIN GLYCOSYLATED A1C GLYCOSYLATED HEMOGLOBIN TEST 04/2019 12:00:00 AM [facility] FINE NEEDLE ASPIRATION W/O IMAGING GUIDANCE 02/23/2020 12:00:00 AM EST eCW1 ([facility]) Amputation Metatarsal W/Toe 01/28/2020 12:00:00 AM EDT [facility] ([facility] FINE NEEDLE ASPIRATION W/O IMAGING GUIDANCE 01/19/2020 12:00:00 AM EDT eCW1 ([facility]) FINE NEEDLE ASPIRATION W/O IMAGING GUIDANCE 01/09/2020 12:00:00 AM EDT eCW1 ([facility]) Revascularization,Endovascular,Transluminal Angioplasty 12/31/2019 12:00:00 AM EDT [facility] ([facility] ) REVSC OPN/PRQ TIB/FABIENNE W/ANGIOPLASTY UNI 12/31/2019 12 :00:00 AM EDT [facility] ([facility], ) REVSC OPN/PRQ TIB/FABIENNE W/ANGIOPLASTY UNI EA VSL 2019 12:00:00 AM EDT [facility] ([facility], ) Moderate Sedation Services; Same Phys Intl 15 Mins; PT >= 5 Years 12/31/2019 12:00:00 AM EDT [facility] ([facility], ) Angiography Internal Corotid Of The Ipsil Intrac Circulation 10/08/2019 12:00:00 AM EDT [facility] ([facility] ) Each Intracranial Branch Of The Internal Corotid/Vertebral 10/08/2019 12:00:00 AM EDT [facility] ([facility] ) REVSC OPN/PRQ TIB/FABIENNE W/ANGIOPLASTY UNI EA VSL 2019 12:00:00 AM EDT [facility] ([facility], ) REVSC OPN/PRQ TIB/FABIENNE W/ANGIOPLASTY UNI EA VSL 2019 12:00:00 AM EDT [facility] ([facility], ) Moderate Sedation Services; Same Phys Intl 15 Mins; PT >= 5 Years 10/08/2019 12:00:00 AM EDT [facility] ([facility], ) Endoscopy Upper GI Biopsy 09/17/2019 12:00:00 AM EDT [facility] ([facility], ) Office Visit, Est Pt., Level 2 FC 08/14/2019 12:00:00 AM EDT eCW1 ([facility]) TRANS CARE MGMT 7 DAY DISCH 08/14/2019 12:00:00 AM EDT eCW1 ([facility]) Transitional Care NO CHARGE Visit 08/07/2019 12:00:00 AM EDT eCW1 ([facility]) DSTRJ LESION ANUS EXTENSIVE 06/06/2019 12:00:00 AM EST eCW1 ([facility]) GLUC BLD GLUC MNTR DEV CLEARED FDA SPEC HOME USE GLUCOSE BLO OD TEST 04/24/2019 12:00:00 AM [facility] BASIC METABOLIC PANEL CALCIUM TOTAL METABOLIC PANEL TOTAL CA 04/24/2019 12:00:00 AM [facility] Results ID Date Data Source [id number] 04/29/2020 10:04:00 AM EST [facility] Name Value Range Interpretation Code Description Data Mireille rce(s) Supporting Document(s) SARS COVID ANTIGEN POSITIVE [facility] This lab was ordered by [facility] a nd reported by [facility]. ID Date Data Source [id number] 04/12/2020 08:23:00 PM EST [facility] Name Value Range Interpretation Code Description Data Mireille rce(s) Supporting Document(s) SARS-CoV-2 (COVID 19) NEGATIVE - SARS-CoV-2 (COVID19) [facility] This lab was ordered by [facility] a nd reported by [facility]. ID Date Data Source [id number] 03/16/2020 05:11:00 AM [facility] Name Value Range Interpretation Code Description Data Mireille rce(s) Supporting Document(s) Hemoglobin A1C % Less than 5.7% Above high normal [facility] HBA1C: Normal: Less than 5.7% Prediabetes: 5.7% to 6.4% Diabetes: 6.5% or higher HA1C % vs Estimated Average Glucose (eAG) % eAG % eAG 6% 126 mg/dL 10% 240 mg/dL 7% 154 mg/dL 11% 269 mg/dL 8% 183 mg/dL 12% 298 mg/dL 9% 212 mg/dL Reference: [place] [employer], 2017 ID Date Data Source [id number] 02/28/2020 11:00:00 AM EST [facility] Name Value Range Interpretation Code Description Data [facility] rce(s) Supporting Document(s) SARS coronavirus 2 RNA [facility] This lab was ordered by [facility] and reported by [facility]. ID Date Data Source [id number] 01/28/2020 04:53:00 PM EDT [facility] ([facility] Name Value Range Interpretation Code Description Data [facility] rce(s) Supporting Document(s) Glucose [Mass/volume] in Capillary blood by Glucometer 154 mg/dL 80-115 Above high normal [facility] ([facility] ID Date Data Source [id number] 01/28/2020 04:09:00 PM EDT [facility] ([facility] Name Value Range Interpretation Code Description [facility]) Surgical pathology study Laboratory test result [facility] ([facility] FINAL DIAGNOSIS Right hallux, 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 Margin appears viable. 01/30/2020956 CLINICAL DIAGNOSIS Right hallux gangrene 01/29/20201303 GROSS DIAGNOSIS Received in formalin labeled "right hallux" and consists of a fragment of hallux 2.5 x 1 x 1 cm. An area of gangrenous changes is noted. Top Coater sections are submitted in two after decalcification. -OA 01/29/20201303 Signed SALINA SAUNDERS MD 01/30/2020 0957 ID Date Data Source [id number] 01/28/2020 11:26:00 AM EDT [facility] ([facility] Name Value Range Interpretation Code Description Data Mireille rce(s) Supporting Document(s) Glucose [Mass/volume] in Capillary blood by Glucometer 91 mg/dL 80- 115 [facility] ([facility] ID Date Data Source [id number] 12/31/2019 11:17:00 AM EDT [facility] ([facility]) Name Value Range Interpretation Code Description Data Mireille rce(s) Supporting Document(s) Glucose [Mass/volume] in Capillary blood by Glucometer 142 mg/dL 80-115 Above high normal [facility] ([facility]) ID Date Data Source [id number] 12/31/2019 08:51:00 AM EDT [facility] ([facility]) Name Value Range Interpretation Code Description Data Mireille rce(s) Supporting Document(s) Glucose [Mass/volume] in Capillary blood by Glucometer 131 mg/dL 80-115 Above high [facility] ID Date Data Source [id number] 12/17/2019 10:05:00 AM EDT [facility] Name Value Range Interpretation Code Description Data Mireille rce(s) Supporting Document(s) Glucose, Fasting 158 mg/dL 70-100 Above high normal [facility] ([facility]) Blood Urea Nitrogen 15 mg/dL 7-18 Normal (applies to non-nume nelson results) [facility]) Creatinine For GFR 1.36 mg/dL 0.70-1.30 Above high normal [facility] ([facility]) Glomerular Filtration Rate 56.9 Normal (applies to n on-numeric results) [facility]) <content>Units are mL/min/1.73 m2</content>
<content></content>
<content>Chronic Kidney Disease Staging per NKF:</content>
<content></content>
<content>Stage I & II GFR >=60 Normal to Mildly Decreased</content>
<content>Stage III GFR 30- 59 Moderately Decreased</content>
<content>Stage IV GFR 15-29 Severely Decreased</content>
<content>Stage V GFR <15 Very Little GFR Left</content>
<content>ESRD GFR <15 on CONSTRUCTION FLAGGER</content>
<content></content> Chloride Level 105 meq/L 98-107 Normal (applies to non-numeric r esults) [facility] ([facility]) Potassium Serum 4.6 meq/L 3.5-5.1 Normal (applies to non-numeric results) [facility] ([facility]) Sodium Level 139 meq/L 136-145 Normal (applies to non-numeric res ults) [facility] ([facility]) Calcium Level 9.3 mg/dL 8.8-10.2 Normal (applies to non-numeric re sults) [facility] ([facility]) Anion Gap 7 meq/L 8-16 Below low normal [facility] ( [facility] Carbon Dioxide Level 27 meq/L 21-32 Normal (applies to non-num gage results) [facility] ([facility]) ID Date Data Source [id number] 12/17/2019 10:05:00 AM EDT [facility]) Name Value Range Interpretation Code Description Data Mireille rce(s) Supporting Document(s) White Blood Count 6.8 10 4.0-10.0 Normal (applies to non-numeri c results) [facility] ([facility]) Red Blood Count 3.47 10 4.30-6.10 Below low normal [facility] ([facility]) Hemoglobin 11.2 g/dL 13.5-17.5 Below low normal [facility] ( [facility]) Hematocrit 32.8 % 42.0-52.0 Below low normal [facility] ( [facility]) Mean Corpuscular Volume 94.5 fl 80.0-96.0 Normal ( applies to non-numeric results) [facility] ([facility], ) Mean Corpuscular Hemoglobin 32.3 pg 27.0-33.0 Norm al (applies to non-numeric results) [facility]) Mean Corpuscular HGB Conc 34.1 g/dL 32.0-36.5 Normal (applies to non-numeric results) [facility]) Red Cell Distribution Width 12.1 % 11.5-14.5 Norm al (applies to non-numeric results) [facility] ([facility]) Nucleated Red Blood Cell % 0.0 % 0-0 Normal (applies to n on-numeric results) [facility] ([facility]) Platelet Count, Automated 214 10 150-450 Normal (applies to non-numeric results) [facility]) ID Date Data Source [id number] 12/01/2019 06:43:00 PM EDT [facility] Name Value Range Interpretation Code Description Data Mireille rce(s) Supporting Document(s) Triglycerides 101 mg/dL 0-150 Normal (applies to non-numeric re sults) [facility] Cholesterol 163 mg/dL 0-200 Normal (applies to non-numeric resu lts) [facility] LDL Cholesterol,Direct 77 mg/dL <100 Normal (applies to non-n umeric results) [facility] LDL Interpretative Data Optimal <100 (mg/dL) Near optimal 100-129 (mg/dL) Borderline High 130-159 (mg/dL) High 160-189 (mg/dL) Very High >190 (mg/dL) HDL Cholesterol 73 mg/dL 40-60 Above high normal [facility] CHOL/HDL Ratio Normal (applies to non-numeric r esults) [facility] NATIONAL CHOLESTEROL GUIDEL [facility], [...] Average 13.5 11.0 ID Date Data Source [id number] 12/01/2019 06:43:00 PM EDT [facility] Name Value Range Interpretation Code Description Data Mireille rce(s) Supporting Document(s) Sodium 138 mmol/L 137-145 Normal (applies to non-numeric resul ts) [facility] Potassium 3.5-5.1 Normal (applies to non-numeric resul ts) [facility] Chloride 105 mmol/L 98-112 Normal (applies to non-numeric resul ts) [facility] Carbon Dioxide CO2 22.0-33.0 Normal (applies to non-numer ic results) [facility] Anion Gap 4.0-11.0 Normal (applies to non-numeric resul ts) [facility] BUN 16 mg/dL 9-20 Normal (applies to non-numeric resul ts) [facility] Creatinine 0.80-1.50 Normal (applies to non-numeric resul ts) [facility] GFR 48 mL/min >60 Below low normal [facility] Result based on MDRD formula. Glucose Level 66 mg/dL 74-99 Below low normal [facility] The reference range is only applicable w hen fasting. Calcium-Uncorrected 8.4-10.2 Normal (applies to non-nume nelson results) [facility] Corrected Calcium 8.4-10.2 Normal (applies to non-numeri c results) [facility] ID Date Data Source [id number] 12/01/2019 06:43:00 PM EDT [facility] Name Value Range Interpretation Code Description Data Mireille rce(s) Supporting Document(s) Thyroid Stimulate Hormone TSH 0.358-3.740 No rmal (applies to non-numeric results) [facility] ID Date Data Source [id number] 12/01/2019 06:40:00 PM EDT [facility] Name Value Range Interpretation Code Description Data Mireille rce(s) Supporting Document(s) Creatinine,Urine Normal (applies to non-numeric results) [facility] Interpret with care as there is no estab lished reference range associated with this assay's methodology that pertains to this particular sex and/or age. Microalbumin,Urine <1.7 Normal (applies to non-numer ic results) [facility] Albumin/Creatinine Ratio,Urine Normal (applies to non-numeric results) [facility] Reference Ranges for Microalbumin,spot: Normal <30 ug/mg creatinine Microalbuminuria 30-300 ug/mg creatinine Clinical Albuminuria >300 ug/mg creatinine ID Date Data Source [id number] 12/01/2019 06:23:00 PM EDT [facility] Name Value Range Interpretation Code Description Data Mireille rce(s) Supporting Document(s) Hemoglobin A1C % Less than 5.7% Above high normal [facility] HBA1C: Normal: Less than 5.7% Prediabetes: 5.7% to 6.4% Diabetes: 6.5% or higher HA1C % vs Estimated Average Glucose (eAG) % eAG % eAG 6% 126 mg/dL 10% 240 mg/dL 7% 154 mg/dL 11% 269 mg/dL 8% 183 mg/dL 12% 298 mg/dL 9% 212 mg/dL Reference: [place] [employer], 2017 ID Date Data Source [id number] 10/08/2019 12:37:00 PM EDT [facility] ) Name Value Range Interpretation Code Description Data Mireille rce(s) Supporting Document(s) Glucose [Mass/volume] in Capillary blood by Glucometer 190 mg/dL 80-115 Above high normal [facility] ([facility]) ID Date Data Source [id number] 10/08/2019 09:46:00 AM EDT [facility] ([facility]) Name Value Range Interpretation Code Description Data Mireille rce(s) Supporting Document(s) Glucose [Mass/volume] in Capillary blood by Glucometer 208 mg/dL 80-115 Above high normal [facility] ([facility]) ID Date Data Source [id number] 10/08/2019 08:33:00 AM EDT [facility] ([facility]) Name Value Range Interpretation Code Description Data Mireille rce(s) Supporting Document(s) Glucose, Fasting 60 mg/dL 70-100 Below low normal [facility] ([facility]) Glomerular Filtration Rate 48.9 Below low normal [facility] ([facility]) <content>Units are mL/min/1.73 m2</content>
<content></content>
<content>Chronic Kidney Disease Staging per NKF:</content>
<content></content>
<content>Stage I & II GFR >=60 Normal to Mildly Decreased</content>
<content>Stage III GFR 30- 59 Moderately Decreased</content>
<content>Stage IV GFR 15-29 Severely Decreased</content>
<content>Stage V GFR <15 Very Little GFR Left</content>
<content>ESRD GFR <15 on CONSTRUCTION FLAGGER</content>
<content></content> Creatinine For GFR 1.55 mg/dL 0.70-1.30 Above high normal [facility] ([facility]) Blood Urea Nitrogen 18 mg/dL 7-18 Normal (applies to non-nume nelson results) [facility] ([facility]) Potassium Serum 4.3 meq/L 3.5-5.1 Normal (applies to non-numeric results) [facility] ([facility]) Chloride Level 107 meq/L 98-107 Normal (applies to non-numeric r esults) [facility] ([facility]) Sodium Level 141 meq/L 136-145 Normal (applies to non-numeric res ults) [facility] ([facility]) Carbon Dioxide Level 26 meq/L 21-32 Normal (applies to non-num gage results) [facility] ([facility]) Anion Gap 8 meq/L 8-16 Normal (applies to non-numeric resul ts) [facility] ([facility]) Calcium Level 9.3 mg/dL 8.8-10.2 Normal (applies to non-numeric re sults) [facility]) ID Date Data Source [id number] 10/08/2019 08:33:00 AM EDT [facility]) Name Value Range Interpretation Code Description Data Mireille rce(s) Supporting Document(s) White Blood Count 7.1 10 4.0-10.0 Normal (applies to non-numeri c results) [facility] ([facility]) Red Blood Count 3.97 10 4.30-6.10 Below low normal [facility] ([facility]) Hemoglobin 12.6 g/dL 13.5-17.5 Below low normal [facility] ( [facility]) Mean Corpuscular Volume 97.0 fl 80.0-96.0 Above high normal [facility] ([facility]) Hematocrit 38.5 % 42.0-52.0 Below low normal [facility] ( [facility]) Mean Corpuscular HGB Conc 32.7 g/dL 32.0-36.5 Normal (applies to non-numeric results) [facility] ([facility]) Red Cell Distribution Width 12.1 % 11.5-14.5 Norm al (applies to non-numeric results) [facility]) Mean Corpuscular Hemoglobin 31.7 pg 27.0-33.0 Norm al (applies to non-numeric results) [facility] ([facility]) Platelet Count, Automated 206 10 150-450 Normal (applies to non-numeric results) [facility] ([facility]) Nucleated Red Blood Cell % 0.0 % 0-0 Normal (applies to n on-numeric results) [facility]) ID Date Data Source [id number] 09/17/2019 11:28:00 AM EDT [facility]) Name Value Range Interpretation Code Description Data Mireille rce(s) Supporting Document(s) Surgical pathology study Laboratory test result [facility] ([facility], ) FINAL DIAGNOSIS A - Duodenal bulb, biopsy: [...] MD 09/18/2019 1420 ID Date Data Source [id number] 09/14/2019 10:40:00 AM EDT [facility] Name Value Range Interpretation Code Description Data [facility] rce(s) Supporting Document(s) SARS CORONAVIRUS 2 RNA [facility] This lab was ordered by [facility] and reported by [facility]. ID Date Data Source [id number] 04/24/2019 06:44:00 PM EST [facility] Name Value Range Interpretation Code Description Data [facility] rce(s) Supporting Document(s) Sodium 140 mmol/L 137-145 Normal (applies to non-numeric resul ts) [facility] Potassium 3.5-5.1 Normal (applies to non-numeric resul ts) [facility] Chloride 105 mmol/L 98-112 Normal (applies to non-numeric resul ts) [facility] Carbon Dioxide CO2 22.0-33.0 Normal (applies to non-numer ic results) [facility] Anion Gap 4.0-11.0 Normal (applies to non-numeric resul ts) [facility] BUN 14 mg/dL 9-20 Normal (applies to non-numeric resul ts) [facility] Creatinine 0.80-1.50 Normal (applies to non-numeric resul ts) [facility] GFR 52 mL/min >60 Below low normal [facility] Result based on MDRD formula. Glucose Level 67 mg/dL 74-99 Below low normal [facility] The reference range is only applicable w hen fasting. Calcium-Uncorrected 8.4-10.2 Normal (applies to non-nume nelson results) [facility] Corrected Calcium 8.4-10.2 Normal (applies to non-numeri c results) [facility] ID Date Data Source [id number] 04/24/2019 06:41:00 PM EST [facility] Name Value Range Interpretation Code Description Data Mireille rce(s) Supporting Document(s) Hemoglobin A1C % Less than 5.7% Above high normal [facility] HBA1C: Normal: Less than 5.7% Prediabetes: 5.7% to 6.4% Diabetes: 6.5% or higher HA1C % vs Estimated Average Glucose (eAG) % eAG % eAG 6% 126 mg/dL 10% 240 mg/dL 7% 154 mg/dL 11% 269 mg/dL 8% 183 mg/dL 12% 298 mg/dL 9% 212 mg/dL Reference: [employer], 2017 Procedure Social History Code Duration Value Status Description Data Source(s ) Smoking 04/29/2020 12:00:00 AM EST Former Smoker completed Former Smoker eCW1 ([facility]) Smoking 04/06/2020 12:00:00 AM EST Former Smoker completed Former Smoker eCW1 ([facility]) Smoking 04/06/2020 12:00:00 AM EST Former Smoker completed Former Smoker eCW1 ([facility]) Smoking 04/06/2020 12:00:00 AM EST Former Smoker completed Former Smoker eCW1 ([facility]) Smoking 04/06/2020 12:00:00 AM EST Former Smoker completed Former Smoker eCW1 ([facility]) Smoking 04/06/2020 12:00:00 AM EST Former Smoker completed Former Smoker eCW1 ([facility]) Smoking 04/06/2020 12:00:00 AM EST Former Smoker completed Former Smoker eCW1 ([facility]) Smoking 04/06/2020 12:00:00 AM EST Former Smoker completed Former Smoker eCW1 ([facility]) Smoking 04/05/2020 12:00:00 AM EST Non Smoker completed Non Smoke r MEDENT ([facility], ) Smoking 02/25/2020 12:00:00 AM EST Former Smoker completed Former Smoker eCW1 ([facility]) Smoking 02/25/2020 12:00:00 AM EST Former Smoker completed Former Smoker eCW1 ([facility]) Smoking 02/25/2020 12:00:00 AM EST Former Smoker completed Former Smoker eCW1 ([facility]) Smoking 02/25/2020 12:00:00 AM EST Former Smoker completed Former Smoker eCW1 ([facility]) Smoking 02/25/2020 12:00:00 AM EST Former Smoker completed Former Smoker eCW1 ([facility]) Smoking 02/25/2020 12:00:00 AM EST Former Smoker completed Former Smoker eCW1 ([facility]) Smoking 02/25/2020 12:00:00 AM EST Former Smoker completed Former Smoker eCW1 ([facility]) Smoking 02/24/2020 12:00:00 AM EST Former Smoker completed Former Smoker eCW1 ([facility]) Smoking 02/19/2020 12:00:00 AM EST Former Smoker completed Former Smoker eCW1 ([facility]) Smoking 02/19/2020 12:00:00 AM EST Former Smoker completed Former Smoker eCW1 ([facility]) Smoking 02/19/2020 12:00:00 AM EST Former Smoker completed Former Smoker eCW1 ([facility]) Smoking 02/09/2020 12:00:00 AM EST Former Smoker completed Former Smoker eCW1 ([facility]) Smoking 02/09/2020 12:00:00 AM EST Former Smoker completed Former Smoker eCW1 ([facility]) Smoking 01/19/2020 12:00:00 AM EDT Former Smoker completed Former Smoker eCW1 ([facility]) Smoking 01/19/2020 12:00:00 AM EDT Former Smoker completed Former Smoker eCW1 ([facility]) Smoking 01/19/2020 12:00:00 AM EDT Former Smoker completed Former Smoker eCW1 ([facility]) Smoking 09/18/2019 12:00:00 AM EDT Former Smoker completed Former Smoker eCW1 ([facility]) Smoking 09/18/2019 12:00:00 AM EDT Former Smoker completed Former Smoker eCW1 ([facility]) Smoking 09/18/2019 12:00:00 AM EDT Former Smoker completed Former Smoker eCW1 ([facility]) Smoking 09/18/2019 12:00:00 AM EDT Former Smoker completed Former Smoker eCW1 ([facility]) Smoking 08/14/2019 12:00:00 AM EDT Former Smoker completed Former Smoker eCW1 ([facility]) Smoking 08/14/2019 12:00:00 AM EDT Former Smoker completed Former Smoker eCW1 ([facility]) Smoking 08/14/2019 12:00:00 AM EDT Former Smoker completed Former Smoker eCW1 ([facility]) Smoking 08/14/2019 12:00:00 AM EDT Former Smoker completed Former Smoker eCW1 ([facility]) Vital Signs ID Date Data Source UNK Name Value Range Interpretation Code Description Data Source(s) Body surface area Derived from formula 1.79 m2 1.79 m2 [facility] ([facility]) Body weight 64.865 kg 64.865 kg [facility] ([facility]) [place] body weight 160 [lb_av] 160 [lb_av] MEDEN T ([facility]) Body mass index (BMI) [Ratio] 21.1 kg/m2 21.1 k g/m2 [facility] ([facility]) Body weight 143.00 [lb_av] 143.00 [lb_av] MEDEN T ([facility]) stated Body height 69 [in_i] 69 [in_i] MEDENT ([facility]) 5'9" Diastolic blood pressure 73 mm[Hg] 73 mm[Hg] [facility]) Systolic blood pressure 123 mm[Hg] 123 mm[Hg] M EDENT ([facility]) Diastolic blood pressure 65 mm[Hg] 65 mm[Hg] eCW1 ([facility]) Systolic blood pressure 136 mm[Hg] 136 mm[Hg] e CW1 ([facility]) Body temperature 98.3 [degF] 98.3 [degF] eCW1 ( [facility]) Respiratory rate 18 /min 18 /min eCW1 ([facility]) Heart rate 74 /min 74 /min eCW1 ([facility]) Body mass index (BMI) [Ratio] 22.89 kg/m2 22.89 kg/m2 eCW1 ([facility]) Body height 69 [in_i] 69 [in_i] eCW1 ([facility]) Body weight 155 [lb_av] 155 [lb_av] eCW1 ([facility]) [place] body weight 160 [lb_av] 160 [lb_av] MEDEN T ([facility]) Body mass index (BMI) [Ratio] 21.1 kg/m2 21.1 k g/m2 [facility] ([facility]) Body weight 143.00 [lb_av] 143.00 [lb_av] MEDEN T ([facility]) Body height 69 [in_i] 69 [in_i] [facility] ([facility] ) 5'9" Diastolic blood pressure 63 mm[Hg] 63 mm[Hg] [facility] ([facility]) Systolic blood pressure 110 mm[Hg] 110 mm[Hg] M EDENT ([facility]) Body surface area Derived from formula 1.79 m2 1.79 m2 [facility] ([facility]) Body weight 64.865 kg 64.865 kg [facility] ([facility], ) [place] body weight 160 [lb_av] 160 [lb_av] MEDEN T ([facility]) Body height 69 [in_i] 69 [in_i] MEDENT ([facility]) 5'9" Heart rate 85 /min 85 /min MEDENT ([facility]) Diastolic blood pressure 61 mm[Hg] 61 mm[Hg] MEDENT ([facility]) Systolic blood pressure 126 mm[Hg] 126 mm[Hg] M EDENT ([facility]) Diastolic blood pressure 78 mm[Hg] 78 mm[Hg] eCW1 ([facility]) Systolic blood pressure 188 mm[Hg] 188 mm[Hg] e CW1 ([facility]) Body temperature 97.7 [degF] 97.7 [degF] eCW1 ( [facility]) Respiratory rate 20 /min 20 /min eCW1 ([facility]) Heart rate 90 /min 90 /min eCW1 ([facility]) Body mass index (BMI) [Ratio] 24.22 kg/m2 24.22 kg/m2 W1 ([facility]) Body height 69 [in_i] 69 [in_i] eCW1 ([facility]) Body weight 164 [lb_av] 164 [lb_av] eCW1 ([facility]) Diastolic blood pressure 58 mm[Hg] 58 mm[Hg] eCW1 ([facility]) Systolic blood pressure 107 mm[Hg] 107 mm[Hg] e CW1 ([facility]) Body temperature 98.5 [degF] 98.5 [degF] eCW1 ( [facility]) Respiratory rate 20 /min 20 /min eCW1 ([facility]) Heart rate 82 /min 82 /min eCW1 ([facility]) Body mass index (BMI) [Ratio] 24.22 kg/m2 24.22 kg/m2 W1 ([facility]) Body height 69 [in_i] 69 [in_i] eCW1 ([facility]) Body weight 164 [lb_av] 164 [lb_av] eCW1 ([facility]) Diastolic blood pressure mm[Hg] eCW1 ([facility]) Systolic blood pressure 188 mm[Hg] 188 mm[Hg] e CW1 ([facility]) Body temperature 98.2 [degF] 98.2 [degF] eCW1 ( [facility]) Respiratory rate 22 /min 22 /min eCW1 ([facility]) Heart rate 88 /min 88 /min eCW1 ([facility]) Body mass index (BMI) [Ratio] 24.81 kg/m2 24.81 kg/m2 eCW1 ([facility]) Body height 69 [in_i] 69 [in_i] eCW1 ([facility]) Body weight kg eCW1 ([facility]) Body weight 168 [lb_av] 168 [lb_av] eCW1 ([facility]) Body mass index (BMI) [Ratio] 24.8 kg/m2 24.8 k g/m2 MED[facility] ([facility] Heart rate 77 /min 77 /min MEDENT ([facility] Diastolic blood pressure 69 mm[Hg] 69 mm[Hg] [facility] ([facility] Systolic blood pressure 107 mm[Hg] 107 mm[Hg] M EDENT ([facility] Body weight 168.00 [lb_av] 168.00 [lb_av] MEDEN T ([facility] Body height 69 [in_i] 69 [in_i] MEDENT ([facility] 5'9" Body surface area Derived from formula 1.92 m2 1.92 m2 MEDENT ([facility], ) Body weight 76.318 kg 76.318 kg MEDENT ([facility]) [place] body weight 160 [lb_av] 160 [lb_av] MEDEN T ([facility]) Body mass index (BMI) [Ratio] 24.8 kg/m2 24.8 k g/m2 [facility] ([facility]) Body weight 168.25 [lb_av] 168.25 [lb_av] MEDEN T ([facility]) Body height 69 [in_i] 69 [in_i] [facility] ([facility]) 5'9" Diastolic blood pressure 70 mm[Hg] 70 mm[Hg] [facility] ([facility]) Systolic blood pressure 128 mm[Hg] 128 mm[Hg] M EDENT ([facility]) Diastolic blood pressure 69 mm[Hg] 69 mm[Hg] eCW1 ([facility]) Systolic blood pressure 107 mm[Hg] 107 mm[Hg] e CW1 ([facility]) Body temperature 94.6 [degF] 94.6 [degF] eCW1 ( [facility]) Respiratory rate 18 /min 18 /min eCW1 ([facility]) Heart rate 77 /min 77 /min W1 ([facility]) Body mass index (BMI) [Ratio] 24.81 kg/m2 24.81 kg/m2 W1 ([facility]) Body height 69 [in_i] 69 [in_i] eCW1 ([facility]) Body weight kg eCW1 ([facility]) Body weight 168 [lb_av] 168 [lb_av] eCW1 ([facility]) Body mass index (BMI) [Ratio] 24.81 kg/m2 24.81 kg/m2 W1 ([facility]) Body height 69 [in_i] 69 [in_i] eCW1 ([facility]) Body weight kg eCW1 ([facility]) Body weight 168 [lb_av] 168 [lb_av] eCW1 ([facility]) Body weight 78.926 kg 78.926 kg MEDENT ([facility]) [place] body weight 160 [lb_av] 160 [lb_av] MEDEN T ([facility]) Body mass index (BMI) [Ratio] 25.7 kg/m2 25.7 k g/m2 [facility] ([facility]) Body weight 174.00 [lb_av] 174.00 [lb_av] MEDEN T ([facility]) Body height 69 [in_i] 69 [in_i] [facility] ([facility]) 5'9" Diastolic blood pressure 70 mm[Hg] 70 mm[Hg] [facility] ([facility]) Systolic blood pressure 124 mm[Hg] 124 mm[Hg] [facility] ([facility]) Body mass index (BMI) [Ratio] 25.5 kg/m2 25.5 k g/m2 [facility] ([facility]) Body weight 173.00 [lb_av] 173.00 [lb_av] MEDEN T ([facility]) Body height 69 [in_i] 69 [in_i] [facility] ([facility]) 5'9" Diastolic blood pressure 82 mm[Hg] 82 mm[Hg] [facility] ([facility]) Systolic blood pressure 140 mm[Hg] 140 mm[Hg] [facility] ([facility]) Body weight 78.473 kg 78.473 kg [facility] ([facility]) Body weight 77.566 kg 77.566 kg [facility] ([facility]) Body mass index (BMI) [Ratio] 25.2 kg/m2 25.2 k g/m2 [facility] ([facility]) Body weight 171.00 [lb_av] 171.00 [lb_av] MEDEN T ([facility]) Body height 69 [in_i] 69 [in_i] [facility] ([facility]) 5'9" Diastolic blood pressure 70 mm[Hg] 70 mm[Hg] [facility] ([facility]) Systolic blood pressure 120 mm[Hg] 120 mm[Hg] [facility] ([facility]) Body weight 77.112 kg 77.112 kg [facility] ([facility]) Body mass index (BMI) [Ratio] 25.1 kg/m2 25.1 k g/m2 [facility] ([facility]) Body weight 170.00 [lb_av] 170.00 [lb_av] MEDEN T ([facility]) Body height 69 [in_i] 69 [in_i] [facility] ([facility]) 5'9" Diastolic blood pressure 80 mm[Hg] 80 mm[Hg] [facility] ([facility]) Systolic blood pressure 153 mm[Hg] 153 mm[Hg] [facility] ([facility]) Body weight 77.225 kg 77.225 kg [facility] ([facility]) Body mass index (BMI) [Ratio] 25.1 kg/m2 25.1 k g/m2 [facility] ([facility]) Body weight 170.25 [lb_av] 170.25 [lb_av] MEDEN T ([facility]) Body height 69 [in_i] 69 [in_i] [facility] ([facility]) 5'9" Diastolic blood pressure 60 mm[Hg] 60 mm[Hg] [facility] ([facility]) Systolic blood pressure 100 mm[Hg] 100 mm[Hg] [facility] ([facility]) Body weight 77.225 kg 77.225 kg [facility] ([facility]) Body mass index (BMI) [Ratio] 25.1 kg/m2 25.1 k g/m2 [facility] ([facility]) Body weight 170.25 [lb_av] 170.25 [lb_av] MEDEN T ([facility]) Body height 69 [in_i] 69 [in_i] [facility] ([facility]) 5'9" Diastolic blood pressure 73 mm[Hg] 73 mm[Hg] [facility] ([facility]) Systolic blood pressure 128 mm[Hg] 128 mm[Hg] [facility] ([facility]) Diastolic blood pressure 78 mm[Hg] 78 mm[Hg] eCW1 ([facility]) Systolic blood pressure 145 mm[Hg] 145 mm[Hg] e CW1 ([facility]) Body temperature 97.8 [degF] 97.8 [degF] eCW1 ( [facility]) Respiratory rate 17 /min 17 /min eCW1 ([facility]) Heart rate 87 /min 87 /min eCW1 ([facility]) Body mass index (BMI) [Ratio] 24.81 kg/m2 24.81 kg/m2 eCW1 ([facility]) Body height 69 [in_i] 69 [in_i] eCW1 ([facility]) Body weight 168 [lb_av] 168 [lb_av] eCW1 ([facility]) Body weight 74.844 kg 74.844 kg [facility] ([facility]) Body mass index (BMI) [Ratio] 24.4 kg/m2 24.4 k g/m2 [facility] ([facility]) Body weight 165.00 [lb_av] 165.00 [[facility]_av[facility] Body height 69 [in_i] 69 [in_i] [facility] ([facility]) 5'9" Diastolic blood pressure 80 mm[Hg] 80 mm[Hg] [facility] ([facility]) Systolic blood pressure 165 mm[Hg] 165 mm[Hg] [facility]) Diastolic blood pressure 68 mm[Hg] 68 mm[Hg] eCW1 ([facility]) Systolic blood pressure 111 mm[Hg] 111 mm[Hg] e CW1 ([facility]) Body temperature 98.0 [degF] 98.0 [degF] W1 ( [facility]) Respiratory rate 18 /min 18 /min eCW1 ([facility]) Heart rate 89 /min 89 /min eCW1 ([facility]) Body mass index (BMI) [Ratio] 24.81 kg/m2 24.81 kg/m2 eCW1 ([facility]) Body height 69 [in_us] 69 [in_us] eCW1 ([facility]) Body weight Measured 168 [lb_av] 168 [lb_av] eC W1 ([facility]) Diastolic blood pressure 82 mm[Hg] 82 mm[Hg] eCW1 ([facility]) Systolic blood pressure 132 mm[Hg] 132 mm[Hg] e CW1 ([facility]) Body mass index (BMI) [Ratio] 25.25 kg/m2 25.25 kg/m2 eCW1 ([facility]) Body height 69 [in_us] 69 [in_us] eCW1 ([facility]) Body weight Measured 171 [lb_av] 171 [lb_av] eC W1 ([facility]) Patient Treatment Plan of Care Planned Activity Planned Date Details Description Data Source (s) Misc. Devices - 03/11/2020 12:00:00 AM EST eCW1 ([facility]) Misc. Devices - 03/11/2020 12:00:00 AM EST eCW1 ([facility]) Misc. Devices - 03/11/2020 12:00:00 AM EST eCW1 ([facility]) Misc. Devices - 03/11/2020 12:00:00 AM EST eCW1 ([facility]) Misc. Devices - 03/11/2020 12:00:00 AM EST eCW1 ([facility]) Wheelchair - 02/24/2020 12:00:00 AM EST e CW1 ([facility]) Wheelchair - 02/24/2020 12:00:00 AM EST e CW1 ([facility]) Wheelchair - 02/24/2020 12:00:00 AM EST e CW1 ([facility]) Wheelchair - 02/24/2020 12:00:00 AM EST e CW1 ([facility]) Wheelchair - 02/24/2020 12:00:00 AM EST e CW1 ([facility]) Wheelchair - 02/24/2020 12:00:00 AM EST e CW1 ([facility]) Wheelchair - 02/24/2020 12:00:00 AM EST e CW1 ([facility]) Wheelchair - 02/24/2020 12:00:00 AM EST e CW1 ([facility]) Finasteride 5 MG Oral Tablet [Proscar] 09/05/2019 12:00:00 AM EDT eCW1 ([facility]) Finasteride 5 MG Oral Tablet [Proscar] 09/05/2019 12:00:00 AM EDT eCW1 ([facility]) Finasteride 5 MG Oral Tablet [Proscar] 09/05/2019 12:00:00 AM EDT eCW1 ([facility]) Finasteride 5 MG Oral Tablet [Proscar] 09/05/2019 12:00:00 AM EDT eCW1 ([facility]) Citalopram 40 MG Oral Tablet [Celexa] 04/17/2019 12:00:00 AM EST eCW1 ([facility]) Celexa 40 MG 04/17/2019 12:00:00 AM EST e CW1 ([facility])
--- OUTSIDE RECORDS SUMMARY | 2020-05-02 02:08 | CCD ---
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 If you continue you may have access to information: Regarding HIV / AIDS; Provided by facilities licensed or operated by the [facility] Office of Mental Health; or Provided by the [facility] Office for People With Developmental Disabilities. If such information is present, then the following [facility] mandated warning applies: This information [...] law may result in a fine or residential sentence or both. A general authorization for the release of medical or other information is NOT sufficient authorization for further disc losure. Family History Family Member Name Family Member Gender Family Member Status Date o f Status Description Data Source(s) Unknown Unknown Problem MEDENT ([facility]) father Encounters Encounter Providers Location Date Indications Data Source(s ) Unknown [address] [facility] [place] [place] [address] 04/29/2020 12:00:00 AM EST eCW1 (Replaced by [facility]) Unknown [address] [place] [address] 04/28/2020 12:00:00 AM EST eCW1 (Replaced by [facility]) Unknown [address] [facility] [place] [address] 04/26/2020 12:00:00 AM EST eCW1 ([facility]) Unknown [address] [facility] [place] [address] 04/23/2020 12:00:00 AM EST eCW1 ([facility] Unknown [address] [facility] [place] [address] 04/22/2020 12:00:00 AM EST eCW1 ([facility]) Unknown [address] [facility] [place] [address] 04/21/2020 12:00:00 AM EST eCW1 ([facility]) Outpatient [address] [facility] [place] [address] 04/06/2020 12:00:00 AM EST eCW1 ([facility]) Office Visit Attender: Florencia Mcnair/Анна/Indra/Zeeshan mcdowell 04/05/2020 08:15:00 AM EST MEDENT ([facility]) Unknown [address] [facility] [place] [address] 03/31/2020 12:00:00 AM EST eCW1 ([facility]) Unknown [address] [facility] [place] [address] 03/31/2020 12:00:00 AM EST eCW1 ([facility]) Unknown [address] [facility] [place] [address] 03/29/2020 12:00:00 AM EST eCW1 ([facility]) Unknown [address] [facility] [place] [address] 03/24/2020 12:00:00 AM EST eCW1 ([facility]) Unknown [address] [facility] [place] [address] 03/10/2020 12:00:00 AM EST eCW1 ([facility]) Outpatient Attender: Alex Kuhn MD CPSCAORT-CPSCAEND 03/02 02:32:00 PM EST - 03/02/2020 02:33:00 PM EST E10.65 [facility] E10.65 Patient discharged. Unknown [address] [facility] [address] 03/01/2020 12:00:00 AM EST eCW1 ([facility]) Outpatient Attender: Kathy Mcnair/Анна/Indra/ Talon 02/23/2020 12:30:00 PM EST MEDENT ([facility]) ([id number]) For Template Wright [address] [place] [phone] 02/23/2020 12:00:00 AM EST eCW1 ([facility]) Unknown [address] [place] [address] 02/20/2020 12:00:00 AM EST eCW1 ([facility]) Office Visit, Est Pt., Level [address] [place] [phone] 02/19/2020 12:00:00 AM EST eCW1 ([facility]) Unknown [address] [facility] [address] 02/19/2020 12:00:00 AM EST eCW1 (Replaced by [facility]) Office Visit Attender: MOOSE CHAPA [facility] 01/31 12:00:00 PM EST MEDENT ([facility] Unknown [address] [facility] [id number] 02/18/2020 12:00:00 AM EST eCW1 ([facility]) Unknown [address] [facility] [address] 02/10/2020 12:00:00 AM EST eCW1 ([facility]) Outpatient [address] [place] [phone] 02/09/2020 12:00:00 AM EST eCW1 (Replaced by [facility]) Unknown [address] [place] [address] 02/04/2020 12:00:00 AM EST eCW1 ([facility]) Office Visit Attender: MOOSE CHAPA [facility] Office 05/2019 01:45:00 PM EST MEDENT ([facility] Unknown [address] [facility] [place] [facility] [address] 01/26/2020 12:00:00 AM EDT eCW1 (Replaced by [facility]) Outpatient Attender: MOOSE CHAPA [facility] Office 01/01 02:30:00 PM EDT MEDENT ([facility] Outpatient Attender: Florencia Mcnair/Анна/Indra/R eindl 01/20/2020 11:30:00 AM EDT MEDENT ([facility]) Outpatient [address] [facility] [address] 01/19/2020 12:00:00 AM EDT eCW1 (Replaced by [facility]) ([id number]) For [facility] [address] [place] [address] 01/09/2020 12:00:00 AM EDT eCW1 ([facility]) Unknown [address] [facility] [address] 01/01/2020 12:00:00 AM EDT eCW1 (Replaced by [facility]) Unknown [address] [facility] [place] [address] 12/30/2019 12:00:00 AM EDT eCW1 ([facility]) Outpatient Attender: Florencia Mcnair/Анна/Indra/R eindl 12/17/2019 09:00:00 AM EDT MEDENT ([facility]) Outpatient Attender: Alex Kuhn MD CPSCAORT-CPSCAEND 11/30 02:51:00 PM EDT - 12/01/2019 02:52:00 PM EDT E10.65 [facility] E10.65 Patient discharged. Outpatient Attender: DILSHAD Mcnair/[place]/Ang el/Reindl 11/05/2019 11:30:00 AM EDT MEDENT ([facility]) Outpatient Attender: RAISA Mcnair/[place]/Indra/ Reindl 11/04/2019 11:20:00 AM EDT MEDENT ([facility]) Outpatient Attender: Florencia Dumont RPA Xu/[place]/Indra/R eindl 10/16/2019 10:00:00 AM EDT MEDENT ([facility]) Unknown [address] [facility] [address] 10/16/2019 12:00:00 AM EDT eCW1 ([facility]) Outpatient Attender: RAISA Mcnair/[place]/Indra/ Reindl 10/07/2019 11:20:00 AM EDT MEDENT ([facility]) Outpatient Attender: Florencia Dumont RPA Xu/[place]/Indra/R eindl 09/25/2019 01:30:00 PM EDT MEDENT ([facility]) Outpatient Attender: Florencia Dumont RPA Xu/[place]/Indra/R eindl 09/24/2019 10:00:00 AM EDT MEDENT ([facility] Outpatient [address] [facility] [place] [address] 09/18/2019 12:00:00 AM EDT eCW1 ([facility]) Unknown [address] [facility] [address] 09/12/2019 12:00:00 AM EDT eCW1 ([facility]) Outpatient Attender: RAISA Mcnair/[place]/Indra/ Reindl 09/09/2019 11:35:00 AM EDT MEDENT ([facility]) Unknown [address] [facility] [place] [address] 09/05/2019 12:00:00 AM EDT eCW1 ([facility]) Unknown [address] [facility] [place] [address] 09/03/2019 12:00:00 AM EDT eCW1 ([facility]) Outpatient 08/28/2019 09:03:00 AM EDT [facility] Unknown [address] [facility] [address] 08/26/2019 12:00:00 AM EDT eCW1 ([facility]) Outpatient Attender: Alex Kuhn MD CPSCAORT-CPSCAEND 08/19 02:44:00 PM EDT - 08/20/2019 02:45:00 PM EDT [facility] Patient discharged. [facility] [address] [facility] [address] 08/20/2019 12:00:00 AM EDT eCW1 ([facility]) [facility] [address] [facility] [place] [address] 08/19/2019 12:00:00 AM EDT eCW1 ([facility]) [facility] [address] [facility] [place] [address] 08/19/2019 12:00:00 AM EDT eCW1 ([facility]) Outpatient 08/13/2019 02:22:00 PM EDT [facility] [address] [facility] [address] 08/12/2019 12:00:00 AM EDT eCW1 ([facility]) [facility] [address] [facility] [place] [address] 08/07/2019 12:00:00 AM EDT eCW1 ([facility]) [facility] [address] [facility] [place] [address] 08/05/2019 12:00:00 AM EDT eCW1 ([facility]) [facility] [address] [facility] [place] [address] 08/04/2019 12:00:00 AM EDT eCW1 ([facility]) [facility] [place] [address] [place] [address] 06/25/2019 12:00:00 AM EDT eCW1 ([facility]) [facility] [address] [facility] [address] 06/19/2019 12:00:00 AM EDT eCW1 (Replaced by [facility]) [facility] [address] [place] [address] 06/18/2019 12:00:00 AM EDT eCW1 (Replaced by [facility]) [facility] [address] [place] [address] 06/06/2019 12:00:00 AM EST eCW1 (Replaced by [facility]) [facility] [address] [facility] [address] 04/30/2019 12:00:00 AM EST eCW1 (Replaced by [facility]) Outpatient Attender: Alex Kuhn MD CPSCAORT-CPSCAEND 04/24 03:04:00 PM EST - 04/24/2019 03:05:00 PM EST E10.65 [facility] E10.65 Patient discharged. [facility] [address] [facility] [place] [address] 04/22/2019 12:00:00 AM EST eCW1 (Replaced by [facility]) [facility] [address] [facility] [place] [address] 04/15/2019 12:00:00 AM EST eCW1 (Replaced by [facility]) [facility] [address] [facility] [place] [address] 04/07/2019 12:00:00 AM EST eCW1 (Replaced by [facility]) Outpatient Attender: Alex Kuhn MD CPSCAORT-CPSCAEND 01/14 02:06:00 PM EDT - 01/14/2019 02:07:00 PM EDT E10.65 [facility] E10.65 Patient discharged. Medications Medication Brand Name Start Date Product Form Dose Route Admi nistrative Instructions Pharmacy Instructions Status Indications Reaction Description Data Source(s) Misc. Devices - UNK 03/11/2020 12:00:00 AM EST active Misc. Devices - eCW1 ([facility]) Misc. Devices - UNK 03/11/2020 12:00:00 AM EST active Misc. Devices - eCW1 ([facility]) Misc. Devices - UNK 03/11/2020 12:00:00 AM EST active Misc. Devices - eCW1 ([facility]) Misc. Devices - UNK 03/11/2020 12:00:00 AM EST active Misc. Devices - eCW1 ([facility]) Misc. Devices - UNK 03/11/2020 12:00:00 AM EST active Misc. Devices - eCW1 ([facility]) Misc. Devices - UNK 03/11/2020 12:00:00 AM EST active Misc. Devices - eCW1 ([facility]) Misc. Devices - UNK 03/11/2020 12:00:00 AM EST active Misc. Devices - eCW1 ([facility]) Misc. Devices - UNK 03/11/2020 12:00:00 AM EST active Misc. Devices - eCW1 ([facility]) Misc. Devices - UNK 03/11/2020 12:00:00 AM EST active Misc. Devices - eCW1 ([facility]) Misc. Devices - UNK 03/11/2020 12:00:00 AM EST active Misc. Devices - eCW1 ([facility]) Misc. Devices - UNK 03/11/2020 12:00:00 AM EST active Misc. Devices - eCW1 ([facility]) Misc. Devices - UNK 03/11/2020 12:00:00 AM EST active Misc. Devices - eCW1 ([facility]) Misc. Devices - UNK 03/11/2020 12:00:00 AM EST active Misc. Devices - eCW1 ([facility]) Wheelchair - Wheelchair - 02/24/2020 12:00:00 AM EST active Wheelchair - eCW1 ([facility]) Wheelchair - Wheelchair - 02/24/2020 12:00:00 AM EST active Wheelchair - eCW1 ([facility]) Wheelchair - Wheelchair - 02/24/2020 12:00:00 AM EST active Wheelchair - eCW1 ([facility]) Wheelchair - Wheelchair - 02/24/2020 12:00:00 AM EST active Wheelchair - eCW1 ([facility]) Wheelchair - Wheelchair - 02/24/2020 12:00:00 AM EST active Wheelchair - eCW1 ([facility]) Wheelchair - Wheelchair - 02/24/2020 12:00:00 AM EST active Wheelchair - eCW1 ([facility]) Wheelchair - Wheelchair - 02/24/2020 12:00:00 AM EST active Wheelchair - eCW1 ([facility]) Wheelchair - Wheelchair - 02/24/2020 12:00:00 AM EST active Wheelchair - eCW1 ([facility]) Wheelchair - Wheelchair - 02/24/2020 12:00:00 AM EST active Wheelchair - eCW1 ([facility]) Wheelchair - Wheelchair - 02/24/2020 12:00:00 AM EST active Wheelchair - eCW1 ([facility]) Wheelchair - Wheelchair - 02/24/2020 12:00:00 AM EST active Wheelchair - eCW1 ([facility]) Wheelchair - Wheelchair - 02/24/2020 12:00:00 AM EST active Wheelchair - eCW1 ([facility]) Wheelchair - Wheelchair - 02/24/2020 12:00:00 AM EST active Wheelchair - eCW1 ([facility]) Wheelchair - Wheelchair - 02/24/2020 12:00:00 AM EST active Wheelchair - eCW1 ([facility]) Wheelchair - Wheelchair - 02/24/2020 12:00:00 AM EST active Wheelchair - eCW1 ([facility]) Wheelchair - Wheelchair - 02/24/2020 12:00:00 AM EST active Wheelchair - eCW1 ([facility]) Cephalexin 500 MG Oral Capsule Cephalexin 02/02/2020 12:00:00 AM EST ORAL active MEDENT ([facility] tramadol hydrochloride 50 MG Oral Tablet Tramadol HCL 02/02/2020 12:00:00 AM EST active MEDENT ([facility] Sucralfate 100 MG/ML Oral Suspension Sucralfate 10/23/2019 12:00:00 A M EDT ORAL active MEDENT ([facility], ) pantoprazole 40 MG Delayed Release Oral Tablet Pantoprazole Sodium 10/07/2019 12:00:00 AM EDT active M EDENT ([facility], ) Finasteride 5 MG Oral Tablet [Proscar] Proscar 5 MG Proscar 5 MG 09/05/2019 12:00:00 AM EDT 1.0 {tablet} suspended Proscar 5 MG eCW1 ([facility]) Finasteride 5 MG Oral Tablet [Proscar] Proscar 5 MG Proscar 5 MG 09/05/2019 12:00:00 AM EDT 1.0 {tablet} active Pr cassidy 5 MG eCW1 ([facility]) Finasteride 5 MG Oral Tablet [Proscar] Proscar 5 MG Proscar 5 MG 09/05/2019 12:00:00 AM EDT 1.0 {tablet} suspended Proscar 5 MG eCW1 ([facility]) Finasteride 5 MG Oral Tablet [Proscar] Proscar 5 MG Proscar 5 MG 09/05/2019 12:00:00 AM EDT 1.0 {tablet} suspended Proscar 5 MG eCW1 ([facility]) Finasteride 5 MG Oral Tablet [Proscar] Proscar 5 MG Proscar 5 MG 09/05/2019 12:00:00 AM EDT 1.0 {tablet} suspended Proscar 5 MG eCW1 ([facility]) Finasteride 5 MG Oral Tablet [Proscar] Proscar 5 MG Proscar 5 MG 09/05/2019 12:00:00 AM EDT 1.0 {tablet} active Pr cassidy 5 MG eCW1 ([facility]) Finasteride 5 MG Oral Tablet [Proscar] Proscar 5 MG Proscar 5 MG 09/05/2019 12:00:00 AM EDT 1.0 {tablet} suspended Proscar 5 MG eCW1 ([facility]) Finasteride 5 MG Oral Tablet [Proscar] Proscar 5 MG Proscar 5 MG 09/05/2019 12:00:00 AM EDT 1.0 {tablet} suspended Proscar 5 MG eCW1 ([facility]) Finasteride 5 MG Oral Tablet [Proscar] Proscar 5 MG Proscar 5 MG 09/05/2019 12:00:00 AM EDT 1.0 {tablet} active Pr cassidy 5 MG eCW1 ([facility]) Finasteride 5 MG Oral Tablet [Proscar] Proscar 5 MG Proscar 5 MG 09/05/2019 12:00:00 AM EDT 1.0 {tablet} active Pr cassidy 5 MG eCW1 ([facility]) Finasteride 5 MG Oral Tablet [Proscar] Proscar 5 MG Proscar 5 MG 09/05/2019 12:00:00 AM EDT 1.0 {tablet} active Pr cassidy 5 MG eCW1 ([facility]) Finasteride 5 MG Oral Tablet [Proscar] Proscar 5 MG Proscar 5 MG 09/05/2019 12:00:00 AM EDT 1.0 {tablet} suspended Proscar 5 MG eCW1 ([facility]) Finasteride 5 MG Oral Tablet [Proscar] Proscar 5 MG Proscar 5 MG 09/05/2019 12:00:00 AM EDT 1.0 {tablet} suspended Proscar 5 MG eCW1 ([facility]) Finasteride 5 MG Oral Tablet [Proscar] Proscar 5 MG Proscar 5 MG 09/05/2019 12:00:00 AM EDT 1.0 {tablet} suspended Proscar 5 MG eCW1 ([facility]) Finasteride 5 MG Oral Tablet [Proscar] Proscar 5 MG Proscar 5 MG 09/05/2019 12:00:00 AM EDT 1.0 {tablet} suspended Proscar 5 MG eCW1 ([facility]) Finasteride 5 MG Oral Tablet [Proscar] Proscar 5 MG Proscar 5 MG 09/05/2019 12:00:00 AM EDT 1.0 {tablet} suspended Proscar 5 MG eCW1 ([facility]) Finasteride 5 MG Oral Tablet [Proscar] Proscar 5 MG Proscar 5 MG 09/05/2019 12:00:00 AM EDT 1.0 {tablet} active Pr cassidy 5 MG eCW1 ([facility]) Finasteride 5 MG Oral Tablet [Proscar] Proscar 5 MG Proscar 5 MG 09/05/2019 12:00:00 AM EDT 1.0 {tablet} active Pr cassidy 5 MG eCW1 ([facility]) Finasteride 5 MG Oral Tablet [Proscar] Proscar 5 MG Proscar 5 MG 09/05/2019 12:00:00 AM EDT 1.0 {tablet} active Pr cassidy 5 MG eCW1 ([facility]) Finasteride 5 MG Oral Tablet [Proscar] Proscar 5 MG Proscar 5 MG 09/05/2019 12:00:00 AM EDT 1.0 {tablet} active Pr cassidy 5 MG eCW1 ([facility]) Finasteride 5 MG Oral Tablet [Proscar] Proscar 5 MG Proscar 5 MG 09/05/2019 12:00:00 AM EDT 1.0 {tablet} active Pr cassidy 5 MG eCW1 ([facility]) Finasteride 5 MG Oral Tablet [Proscar] Proscar 5 MG Proscar 5 MG 09/05/2019 12:00:00 AM EDT 1.0 {tablet} suspended Proscar 5 MG eCW1 ([facility]) Finasteride 5 MG Oral Tablet [Proscar] Proscar 5 MG Proscar 5 MG 09/05/2019 12:00:00 AM EDT 1.0 {tablet} suspended Proscar 5 MG eCW1 ([facility]) Finasteride 5 MG Oral Tablet [Proscar] Proscar 5 MG Proscar 5 MG 09/05/2019 12:00:00 AM EDT 1.0 {tablet} suspended Proscar 5 MG eCW1 ([facility]) Finasteride 5 MG Oral Tablet [Proscar] Proscar 5 MG Proscar 5 MG 09/05/2019 12:00:00 AM EDT 1.0 {tablet} active Pr cassidy 5 MG eCW1 ([facility]) Finasteride 5 MG Oral Tablet [Proscar] Proscar 5 MG Proscar 5 MG 09/05/2019 12:00:00 AM EDT 1.0 {tablet} active Pr cassidy 5 MG eCW1 ([facility]) Finasteride 5 MG Oral Tablet [Proscar] Proscar 5 MG Proscar 5 MG 09/05/2019 12:00:00 AM EDT 1.0 {tablet} active Pr cassidy 5 MG eCW1 ([facility]) Finasteride 5 MG Oral Tablet [Proscar] Proscar 5 MG Proscar 5 MG 09/05/2019 12:00:00 AM EDT 1.0 {tablet} active Pr cassidy 5 MG eCW1 ([facility]) Finasteride 5 MG Oral Tablet [Proscar] Proscar 5 MG Proscar 5 MG 09/05/2019 12:00:00 AM EDT 1.0 {tablet} suspended Proscar 5 MG eCW1 ([facility]) Finasteride 5 MG Oral Tablet [Proscar] Proscar 5 MG Proscar 5 MG 09/05/2019 12:00:00 AM EDT 1.0 {tablet} active Pr cassidy 5 MG eCW1 ([facility]) Finasteride 5 MG Oral Tablet [Proscar] Proscar 5 MG Proscar 5 MG 09/05/2019 12:00:00 AM EDT 1.0 {tablet} active Pr cassidy 5 MG eCW1 ([facility]) Finasteride 5 MG Oral Tablet [Proscar] Proscar 5 MG Proscar 5 MG 09/05/2019 12:00:00 AM EDT 1.0 {tablet} suspended Proscar 5 MG eCW1 ([facility]) Insulin, Aspart, Human 100 UNT/ML Inject able Solution [NovoLog] NovoLog 100 UNIT/ML NovoLog 100 UNIT/ML 08/06/2019 12:00:00 AM EDT active NovoLog 100 UNIT/ML eCW1 ([facility]) Prednisone 5 MG Oral Tablet PredniSONE 5 MG PredniSONE 5 MG 08/06/2019 12:00:00 AM EDT 1.0 {tablet} active PredniSONE 5 MG eCW1 ([facility]) latanoprost 0.05 MG/ML Ophthalmic Solution Latanoprost 0.005 % Latanoprost 0.005 % 08/06/2019 12:00:00 AM EDT 1.0 {drop_into_affected_eye_in_ the_evening} active Latanoprost 0.005 % eCW1 ([facility]) latanoprost 0.05 MG/ML Ophthalmic Solution Latanoprost 0.005 % Latanoprost 0.005 % 08/06/2019 12:00:00 AM EDT active 1 drop into affected eye in the evening eCW1 ([facility]) Insulin, Aspart, Human 100 UNT/ML Inject able Solution [NovoLog] NovoLog 100 UNIT/ML NovoLog 100 UNIT/ML 08/06/2019 12:00:00 AM EDT active NovoLog 100 UNIT/ML eCW1 ([facility]) Insulin, Aspart, Human 100 UNT/ML Inject able Solution [NovoLog] NovoLog 100 UNIT/ML NovoLog 100 UNIT/ML 08/06/2019 12:00:00 AM EDT active NovoLog 100 UNIT/ML eCW1 ([facility]) Sucralfate 1000 MG Oral Tablet Sucralfate 1 GM Sucralfate 1 GM 08/06/2019 12:00:00 AM EDT active 1 tablet on an empty stomach eCW1 ([facility]) Acetaminophen 500 MG Oral Tablet Acetaminophen 500 MG 2019 12:00:00 AM EDT 1.0 {tablet_as_needed} active A cetaminophen 500 MG eCW1 ([facility]) latanoprost 0.05 MG/ML Ophthalmic Solution Latanoprost 0.005 % Latanoprost 0.005 % 08/06/2019 12:00:00 AM EDT 1.0 {drop_into_affected_eye_in_ the_evening} active Latanoprost 0.005 % eCW1 ([facility]) Sucralfate 1000 MG Oral Tablet Sucralfate 1 GM Sucralfate 1 GM 08/06/2019 12:00:00 AM EDT 1.0 {tablet_on_an_empty_stomach} active Sucralfate 1 GM eCW1 ([facility]) Acetaminophen 500 MG Oral Tablet Acetaminophen 500 MG 2019 12:00:00 AM EDT 1.0 {tablet_as_needed} active A cetaminophen 500 MG eCW1 ([facility]) Acetaminophen 500 MG Oral Tablet Acetaminophen 500 MG 2019 12:00:00 AM EDT 1.0 {tablet_as_needed} active A cetaminophen 500 MG eCW1 ([facility]) Sucralfate 1000 MG Oral Tablet Sucralfate 1 GM Sucralfate 1 GM 08/06/2019 12:00:00 AM EDT 1.0 {tablet_on_an_empty_stomach} active Sucralfate 1 GM eCW1 ([facility]) pantoprazole 40 MG Delayed Release Oral Tablet [Proton ix] Protonix 40 MG Protonix 40 MG 08/06/2019 12:00:00 AM EDT 1.0 {tablet} suspended Protonix 40 MG eCW1 ([facility]) Prednisone 5 MG Oral Tablet PredniSONE 5 MG PredniSONE 5 MG 08/06/2019 12:00:00 AM EDT 1.0 {tablet} active PredniSONE 5 MG eCW1 ([facility]) Acetaminophen 500 MG Oral Tablet Acetaminophen 500 MG 2019 12:00:00 AM EDT 1.0 {tablet_as_needed} active A cetaminophen 500 MG eCW1 ([facility]) pantoprazole 40 MG Delayed Release Oral Tablet [Proton ix] Protonix 40 MG Protonix 40 MG 08/06/2019 12:00:00 AM EDT 1.0 {tablet} active Protonix 40 MG eCW1 ([facility]) pantoprazole 40 MG Delayed Release Oral Tablet [Proton ix] Protonix 40 MG Protonix 40 MG 08/06/2019 12:00:00 AM EDT 1.0 {tablet} suspended Protonix 40 MG eCW1 ([facility]) latanoprost 0.05 MG/ML Ophthalmic Solution Latanoprost 0.005 % Latanoprost 0.005 % 08/06/2019 12:00:00 AM EDT 1.0 {drop_into_affected_eye_in_ the_evening} active Latanoprost 0.005 % eCW1 ([facility]) Insulin, Aspart, Human 100 UNT/ML Inject able Solution [NovoLog] NovoLog 100 UNIT/ML NovoLog 100 UNIT/ML 08/06/2019 12:00:00 AM EDT suspended NovoLog 100 UNIT/ML eCW1 ([facility]) latanoprost 0.05 MG/ML Ophthalmic Solution Latanoprost 0.005 % Latanoprost 0.005 % 08/06/2019 12:00:00 AM EDT 1.0 {drop_into_affected_eye_in_ the_evening} active Latanoprost 0.005 % eCW1 ([facility]) Insulin, Aspart, Human 100 UNT/ML Inject able Solution [NovoLog] NovoLog 100 UNIT/ML NovoLog 100 UNIT/ML 08/06/2019 12:00:00 AM EDT suspended NovoLog 100 UNIT/ML eCW1 ([facility]) pantoprazole 40 MG Delayed Release Oral Tablet [Proton ix] Protonix 40 MG Protonix 40 MG 08/06/2019 12:00:00 AM EDT 1.0 {tablet} active Protonix 40 MG eCW1 ([facility]) pantoprazole 40 MG Delayed Release Oral Tablet [Proton ix] Protonix 40 MG Protonix 40 MG 08/06/2019 12:00:00 AM EDT 1.0 {tablet} active Protonix 40 MG eCW1 ([facility]) Sucralfate 1000 MG Oral Tablet Sucralfate 1 GM Sucralfate 1 GM 08/06/2019 12:00:00 AM EDT 1.0 {tablet_on_an_empty_stomach} active Sucralfate 1 GM eCW1 ([facility]) pantoprazole 40 MG Delayed Release Oral Tablet [Proton ix] Protonix 40 MG Protonix 40 MG 08/06/2019 12:00:00 AM EDT 1.0 {tablet} active Protonix 40 MG eCW1 ([facility]) pantoprazole 40 MG Delayed Release Oral Tablet [Proton ix] Protonix 40 MG Protonix 40 MG 08/06/2019 12:00:00 AM EDT 1.0 {tablet} suspended Protonix 40 MG eCW1 ([facility]) latanoprost 0.05 MG/ML Ophthalmic Solution Latanoprost 0.005 % Latanoprost 0.005 % 08/06/2019 12:00:00 AM EDT 1.0 {drop_into_affected_eye_in_ the_evening} active Latanoprost 0.005 % eCW1 ([facility]) Insulin, Aspart, Human 100 UNT/ML Inject able Solution [NovoLog] NovoLog 100 UNIT/ML NovoLog 100 UNIT/ML 08/06/2019 12:00:00 AM EDT suspended NovoLog 100 UNIT/ML eCW1 ([facility]) latanoprost 0.05 MG/ML Ophthalmic Solution Latanoprost 0.005 % Latanoprost 0.005 % 08/06/2019 12:00:00 AM EDT 1.0 {drop_into_affected_eye_in_ the_evening} active Latanoprost 0.005 % eCW1 ([facility]) Sucralfate 1000 MG Oral Tablet Sucralfate 1 GM Sucralfate 1 GM 08/06/2019 12:00:00 AM EDT 1.0 {tablet_on_an_empty_stomach} active Sucralfate 1 GM eCW1 ([facility]) Sucralfate 1000 MG Oral Tablet Sucralfate 1 GM Sucralfate 1 GM 08/06/2019 12:00:00 AM EDT 1.0 {tablet_on_an_empty_stomach} active Sucralfate 1 GM eCW1 ([facility]) Prednisone 5 MG Oral Tablet PredniSONE 5 MG PredniSONE 5 MG 08/06/2019 12:00:00 AM EDT active 1 tablet eCW1 ([facility]) Acetaminophen 500 MG Oral Tablet Acetaminophen 500 MG 2019 12:00:00 AM EDT active 1 tablet as neede d eCW1 ([facility]) pantoprazole 40 MG Delayed Release Oral Tablet [Proton ix] Protonix 40 MG Protonix 40 MG 08/06/2019 12:00:00 AM EDT 1.0 {tablet} active Protonix 40 MG eCW1 ([facility]) Sucralfate 1000 MG Oral Tablet Sucralfate 1 GM Sucralfate 1 GM 08/06/2019 12:00:00 AM EDT 1.0 {tablet_on_an_empty_stomach} active Sucralfate 1 GM eCW1 ([facility]) Acetaminophen 500 MG Oral Tablet Acetaminophen 500 MG 2019 12:00:00 AM EDT 1.0 {tablet_as_needed} active A cetaminophen 500 MG eCW1 ([facility]) Acetaminophen 500 MG Oral Tablet Acetaminophen 500 MG 2019 12:00:00 AM EDT 1.0 {tablet_as_needed} active A cetaminophen 500 MG eCW1 ([facility]) latanoprost 0.05 MG/ML Ophthalmic Solution Latanoprost 0.005 % Latanoprost 0.005 % 08/06/2019 12:00:00 AM EDT 1.0 {drop_into_affected_eye_in_ the_evening} active Latanoprost 0.005 % eCW1 ([facility]) Sucralfate 1000 MG Oral Tablet Sucralfate 1 GM Sucralfate 1 GM 08/06/2019 12:00:00 AM EDT 1.0 {tablet_on_an_empty_stomach} active Sucralfate 1 GM eCW1 ([facility]) pantoprazole 40 MG Delayed Release Oral Tablet [Proton ix] Protonix 40 MG Protonix 40 MG 08/06/2019 12:00:00 AM EDT 1.0 {tablet} suspended Protonix 40 MG eCW1 ([facility]) Prednisone 5 MG Oral Tablet PredniSONE 5 MG PredniSONE 5 MG 08/06/2019 12:00:00 AM EDT 1.0 {tablet} active PredniSONE 5 MG eCW1 ([facility]) latanoprost 0.05 MG/ML Ophthalmic Solution Latanoprost 0.005 % Latanoprost 0.005 % 08/06/2019 12:00:00 AM EDT 1.0 {drop_into_affected_eye_in_ the_evening} active Latanoprost 0.005 % eCW1 ([facility]) latanoprost 0.05 MG/ML Ophthalmic Solution Latanoprost 0.005 % Latanoprost 0.005 % 08/06/2019 12:00:00 AM EDT 1.0 {drop_into_affected_eye_in_ the_evening} active Latanoprost 0.005 % eCW1 ([facility]) Acetaminophen 500 MG Oral Tablet Acetaminophen 500 MG 2019 12:00:00 AM EDT 1.0 {tablet_as_needed} active A cetaminophen 500 MG eCW1 ([facility]) Acetaminophen 500 MG Oral Tablet Acetaminophen 500 MG 2019 12:00:00 AM EDT 1.0 {tablet_as_needed} active A cetaminophen 500 MG eCW1 ([facility]) Prednisone 5 MG Oral Tablet PredniSONE 5 MG PredniSONE 5 MG 08/06/2019 12:00:00 AM EDT 1.0 {tablet} active PredniSONE 5 MG eCW1 ([facility]) latanoprost 0.05 MG/ML Ophthalmic Solution Latanoprost 0.005 % Latanoprost 0.005 % 08/06/2019 12:00:00 AM EDT 1.0 {drop_into_affected_eye_in_ the_evening} active Latanoprost 0.005 % eCW1 ([facility]) Sucralfate 1000 MG Oral Tablet Sucralfate 1 GM Sucralfate 1 GM 08/06/2019 12:00:00 AM EDT active 1 tablet on an empty stomach eCW1 ([facility]) latanoprost 0.05 MG/ML Ophthalmic Solution Latanoprost 0.005 % Latanoprost 0.005 % 08/06/2019 12:00:00 AM EDT 1.0 {drop_into_affected_eye_in_ the_evening} active Latanoprost 0.005 % eCW1 ([facility]) Prednisone 5 MG Oral Tablet PredniSONE 5 MG PredniSONE 5 MG 08/06/2019 12:00:00 AM EDT 1.0 {tablet} active PredniSONE 5 MG eCW1 ([facility]) pantoprazole 40 MG Delayed Release Oral Tablet [Proton ix] Protonix 40 MG Protonix 40 MG 08/06/2019 12:00:00 AM EDT 1.0 {tablet} suspended Protonix 40 MG eCW1 ([facility]) Prednisone 5 MG Oral Tablet PredniSONE 5 MG PredniSONE 5 MG 08/06/2019 12:00:00 AM EDT 1.0 {tablet} active PredniSONE 5 MG eCW1 ([facility]) Acetaminophen 500 MG Oral Tablet Acetaminophen 500 MG 2019 12:00:00 AM EDT 1.0 {tablet_as_needed} active A cetaminophen 500 MG eCW1 ([facility]) pantoprazole 40 MG Delayed Release Oral Tablet [Proton ix] Protonix 40 MG Protonix 40 MG 08/06/2019 12:00:00 AM EDT 1.0 {tablet} suspended Protonix 40 MG eCW1 ([facility]) pantoprazole 40 MG Delayed Release Oral Tablet [Proton ix] Protonix 40 MG Protonix 40 MG 08/06/2019 12:00:00 AM EDT 1.0 {tablet} active Protonix 40 MG eCW1 ([facility]) Sucralfate 1000 MG Oral Tablet Sucralfate 1 GM Sucralfate 1 GM 08/06/2019 12:00:00 AM EDT 1.0 {tablet_on_an_empty_stomach} active Sucralfate 1 GM eCW1 ([facility]) pantoprazole 40 MG Delayed Release Oral Tablet [Proton ix] Protonix 40 MG Protonix 40 MG 08/06/2019 12:00:00 AM EDT 1.0 {tablet} active Protonix 40 MG eCW1 ([facility]) latanoprost 0.05 MG/ML Ophthalmic Solution Latanoprost 0.005 % Latanoprost 0.005 % 08/06/2019 12:00:00 AM EDT 1.0 {drop_into_affected_eye_in_ the_evening} active Latanoprost 0.005 % eCW1 ([facility]) Sucralfate 1000 MG Oral Tablet Sucralfate 1 GM Sucralfate 1 GM 08/06/2019 12:00:00 AM EDT 1.0 {tablet_on_an_empty_stomach} active Sucralfate 1 GM eCW1 ([facility]) Insulin, Aspart, Human 100 UNT/ML Inject able Solution [NovoLog] NovoLog 100 UNIT/ML NovoLog 100 UNIT/ML 08/06/2019 12:00:00 AM EDT suspended NovoLog 100 UNIT/ML eCW1 ([facility]) Insulin, Aspart, Human 100 UNT/ML Inject able Solution [NovoLog] NovoLog 100 UNIT/ML NovoLog 100 UNIT/ML 08/06/2019 12:00:00 AM EDT active NovoLog 100 UNIT/ML eCW1 ([facility]) Prednisone 5 MG Oral Tablet PredniSONE 5 MG PredniSONE 5 MG 08/06/2019 12:00:00 AM EDT 1.0 {tablet} active PredniSONE 5 MG eCW1 ([facility]) Insulin, Aspart, Human 100 UNT/ML Inject able Solution [NovoLog] NovoLog 100 UNIT/ML NovoLog 100 UNIT/ML 08/06/2019 12:00:00 AM EDT active NovoLog 100 UNIT/ML eCW1 ([facility]) Prednisone 5 MG Oral Tablet PredniSONE 5 MG PredniSONE 5 MG 08/06/2019 12:00:00 AM EDT active 1 tablet eCW1 ([facility]) Acetaminophen 500 MG Oral Tablet Acetaminophen 500 MG 2019 12:00:00 AM EDT 1.0 {tablet_as_needed} active A cetaminophen 500 MG eCW1 ([facility]) Acetaminophen 500 MG Oral Tablet Acetaminophen 500 MG 2019 12:00:00 AM EDT 1.0 {tablet_as_needed} active A cetaminophen 500 MG eCW1 ([facility]) latanoprost 0.05 MG/ML Ophthalmic Solution Latanoprost 0.005 % Latanoprost 0.005 % 08/06/2019 12:00:00 AM EDT 1.0 {drop_into_affected_eye_in_ the_evening} active Latanoprost 0.005 % eCW1 ([facility]) latanoprost 0.05 MG/ML Ophthalmic Solution Latanoprost 0.005 % Latanoprost 0.005 % 08/06/2019 12:00:00 AM EDT 1.0 {drop_into_affected_eye_in_ the_evening} active Latanoprost 0.005 % eCW1 ([facility]) Insulin, Aspart, Human 100 UNT/ML Inject able Solution [NovoLog] NovoLog 100 UNIT/ML NovoLog 100 UNIT/ML 08/06/2019 12:00:00 AM EDT active NovoLog 100 UNIT/ML eCW1 ([facility]) Prednisone 5 MG Oral Tablet PredniSONE 5 MG PredniSONE 5 MG 08/06/2019 12:00:00 AM EDT 1.0 {tablet} active PredniSONE 5 MG eCW1 ([facility]) Prednisone 5 MG Oral Tablet PredniSONE 5 MG PredniSONE 5 MG 08/06/2019 12:00:00 AM EDT 1.0 {tablet} active PredniSONE 5 MG eCW1 ([facility]) Acetaminophen 500 MG Oral Tablet Acetaminophen 500 MG 2019 12:00:00 AM EDT 1.0 {tablet_as_needed} active A cetaminophen 500 MG eCW1 ([facility]) Prednisone 5 MG Oral Tablet PredniSONE 5 MG PredniSONE 5 MG 08/06/2019 12:00:00 AM EDT 1.0 {tablet} active PredniSONE 5 MG eCW1 ([facility]) pantoprazole 40 MG Delayed Release Oral Tablet [Proton ix] Protonix 40 MG Protonix 40 MG 08/06/2019 12:00:00 AM EDT 1.0 {tablet} suspended Protonix 40 MG eCW1 ([facility]) Sucralfate 1000 MG Oral Tablet Sucralfate 1 GM Sucralfate 1 GM 08/06/2019 12:00:00 AM EDT 1.0 {tablet_on_an_empty_stomach} active Sucralfate 1 GM eCW1 ([facility]) Sucralfate 1000 MG Oral Tablet Sucralfate 1 GM Sucralfate 1 GM 08/06/2019 12:00:00 AM EDT 1.0 {tablet_on_an_empty_stomach} active Sucralfate 1 GM eCW1 ([facility]) Acetaminophen 500 MG Oral Tablet Acetaminophen 500 MG 2019 12:00:00 AM EDT 1.0 {tablet_as_needed} active A cetaminophen 500 MG eCW1 ([facility]) Acetaminophen 500 MG Oral Tablet Acetaminophen 500 MG 2019 12:00:00 AM EDT 1.0 {tablet_as_needed} active A cetaminophen 500 MG eCW1 ([facility]) Prednisone 5 MG Oral Tablet PredniSONE 5 MG PredniSONE 5 MG 08/06/2019 12:00:00 AM EDT 1.0 {tablet} active PredniSONE 5 MG eCW1 ([facility]) latanoprost 0.05 MG/ML Ophthalmic Solution Latanoprost 0.005 % Latanoprost 0.005 % 08/06/2019 12:00:00 AM EDT 1.0 {drop_into_affected_eye_in_ the_evening} active Latanoprost 0.005 % eCW1 ([facility]) Acetaminophen 500 MG Oral Tablet Acetaminophen 500 MG 2019 12:00:00 AM EDT 1.0 {tablet_as_needed} active A cetaminophen 500 MG eCW1 ([facility]) pantoprazole 40 MG Delayed Release Oral Tablet [Proton ix] Protonix 40 MG Protonix 40 MG 08/06/2019 12:00:00 AM EDT 1.0 {tablet} active Protonix 40 MG eCW1 ([facility]) Insulin, Aspart, Human 100 UNT/ML Inject able Solution [NovoLog] NovoLog 100 UNIT/ML NovoLog 100 UNIT/ML 08/06/2019 12:00:00 AM EDT active NovoLog 100 UNIT/ML eCW1 ([facility]) Acetaminophen 500 MG Oral Tablet Acetaminophen 500 MG 2019 12:00:00 AM EDT 1.0 {tablet_as_needed} active A cetaminophen 500 MG eCW1 ([facility]) Prednisone 5 MG Oral Tablet PredniSONE 5 MG PredniSONE 5 MG 08/06/2019 12:00:00 AM EDT 1.0 {tablet} active PredniSONE 5 MG eCW1 ([facility]) pantoprazole 40 MG Delayed Release Oral Tablet [Proton ix] Protonix 40 MG Protonix 40 MG 08/06/2019 12:00:00 AM EDT 1.0 {tablet} active Protonix 40 MG eCW1 ([facility]) Insulin, Aspart, Human 100 UNT/ML Inject able Solution [NovoLog] NovoLog 100 UNIT/ML NovoLog 100 UNIT/ML 08/06/2019 12:00:00 AM EDT suspended NovoLog 100 UNIT/ML eCW1 ([facility]) latanoprost 0.05 MG/ML Ophthalmic Solution Latanoprost 0.005 % Latanoprost 0.005 % 08/06/2019 12:00:00 AM EDT 1.0 {drop_into_affected_eye_in_ the_evening} active Latanoprost 0.005 % eCW1 ([facility]) Acetaminophen 500 MG Oral Tablet Acetaminophen 500 MG 2019 12:00:00 AM EDT 1.0 {tablet_as_needed} active A cetaminophen 500 MG eCW1 ([facility]) Acetaminophen 500 MG Oral Tablet Acetaminophen 500 MG 2019 12:00:00 AM EDT 1.0 {tablet_as_needed} active A cetaminophen 500 MG eCW1 ([facility]) Prednisone 5 MG Oral Tablet PredniSONE 5 MG PredniSONE 5 MG 08/06/2019 12:00:00 AM EDT 1.0 {tablet} active PredniSONE 5 MG eCW1 ([facility]) Acetaminophen 500 MG Oral Tablet Acetaminophen 500 MG 2019 12:00:00 AM EDT 1.0 {tablet_as_needed} active A cetaminophen 500 MG eCW1 ([facility]) Acetaminophen 500 MG Oral Tablet Acetaminophen 500 MG 2019 12:00:00 AM EDT active 1 tablet as neede d eCW1 ([facility]) pantoprazole 40 MG Delayed Release Oral Tablet [Proton ix] Protonix 40 MG Protonix 40 MG 08/06/2019 12:00:00 AM EDT 1.0 {tablet} suspended Protonix 40 MG eCW1 ([facility]) Prednisone 5 MG Oral Tablet PredniSONE 5 MG PredniSONE 5 MG 08/06/2019 12:00:00 AM EDT 1.0 {tablet} active PredniSONE 5 MG eCW1 ([facility]) Insulin, Aspart, Human 100 UNT/ML Inject able Solution [NovoLog] NovoLog 100 UNIT/ML NovoLog 100 UNIT/ML 08/06/2019 12:00:00 AM EDT active NovoLog 100 UNIT/ML eCW1 ([facility]) latanoprost 0.05 MG/ML Ophthalmic Solution Latanoprost 0.005 % Latanoprost 0.005 % 08/06/2019 12:00:00 AM EDT active 1 drop into affected eye in the evening eCW1 ([facility]) Prednisone 5 MG Oral Tablet PredniSONE 5 MG PredniSONE 5 MG 08/06/2019 12:00:00 AM EDT 1.0 {tablet} active PredniSONE 5 MG eCW1 ([facility]) Sucralfate 1000 MG Oral Tablet Sucralfate 1 GM Sucralfate 1 GM 08/06/2019 12:00:00 AM EDT 1.0 {tablet_on_an_empty_stomach} active Sucralfate 1 GM eCW1 ([facility]) Acetaminophen 500 MG Oral Tablet Acetaminophen 500 MG 2019 12:00:00 AM EDT 1.0 {tablet_as_needed} active A cetaminophen 500 MG eCW1 ([facility]) Insulin, Aspart, Human 100 UNT/ML Inject able Solution [NovoLog] NovoLog 100 UNIT/ML NovoLog 100 UNIT/ML 08/06/2019 12:00:00 AM EDT active NovoLog 100 UNIT/ML eCW1 ([facility]) Insulin, Aspart, Human 100 UNT/ML Inject able Solution [NovoLog] NovoLog 100 UNIT/ML NovoLog 100 UNIT/ML 08/06/2019 12:00:00 AM EDT suspended NovoLog 100 UNIT/ML eCW1 ([facility]) pantoprazole 40 MG Delayed Release Oral Tablet [Proton ix] Protonix 40 MG Protonix 40 MG 08/06/2019 12:00:00 AM EDT active 1 tablet eCW1 ([facility]) Insulin, Aspart, Human 100 UNT/ML Inject able Solution [NovoLog] NovoLog 100 UNIT/ML NovoLog 100 UNIT/ML 08/06/2019 12:00:00 AM EDT suspended NovoLog 100 UNIT/ML eCW1 ([facility]) Prednisone 5 MG Oral Tablet PredniSONE 5 MG PredniSONE 5 MG 08/06/2019 12:00:00 AM EDT 1.0 {tablet} active PredniSONE 5 MG eCW1 ([facility]) Prednisone 5 MG Oral Tablet PredniSONE 5 MG PredniSONE 5 MG 08/06/2019 12:00:00 AM EDT 1.0 {tablet} active PredniSONE 5 MG eCW1 ([facility]) Sucralfate 1000 MG Oral Tablet Sucralfate 1 GM Sucralfate 1 GM 08/06/2019 12:00:00 AM EDT 1.0 {tablet_on_an_empty_stomach} active Sucralfate 1 GM eCW1 ([facility]) Prednisone 5 MG Oral Tablet PredniSONE 5 MG PredniSONE 5 MG 08/06/2019 12:00:00 AM EDT 1.0 {tablet} active PredniSONE 5 MG eCW1 ([facility]) Insulin, Aspart, Human 100 UNT/ML Inject able Solution [NovoLog] NovoLog 100 UNIT/ML NovoLog 100 UNIT/ML 08/06/2019 12:00:00 AM EDT active as directed eCW1 ([facility]) latanoprost 0.05 MG/ML Ophthalmic Solution Latanoprost 0.005 % Latanoprost 0.005 % 08/06/2019 12:00:00 AM EDT 1.0 {drop_into_affected_eye_in_ the_evening} active Latanoprost 0.005 % eCW1 ([facility]) Insulin, Aspart, Human 100 UNT/ML Inject able Solution [NovoLog] NovoLog 100 UNIT/ML NovoLog 100 UNIT/ML 08/06/2019 12:00:00 AM EDT suspended NovoLog 100 UNIT/ML eCW1 ([facility]) pantoprazole 40 MG Delayed Release Oral Tablet [Proton ix] Protonix 40 MG Protonix 40 MG 08/06/2019 12:00:00 AM EDT 1.0 {tablet} active Protonix 40 MG eCW1 ([facility]) Insulin, Aspart, Human 100 UNT/ML Inject able Solution [NovoLog] NovoLog 100 UNIT/ML NovoLog 100 UNIT/ML 08/06/2019 12:00:00 AM EDT suspended NovoLog 100 UNIT/ML eCW1 ([facility]) Acetaminophen 500 MG Oral Tablet Acetaminophen 500 MG 2019 12:00:00 AM EDT 1.0 {tablet_as_needed} active A cetaminophen 500 MG eCW1 ([facility]) pantoprazole 40 MG Delayed Release Oral Tablet [Proton ix] Protonix 40 MG Protonix 40 MG 08/06/2019 12:00:00 AM EDT 1.0 {tablet} suspended Protonix 40 MG eCW1 ([facility]) Insulin, Aspart, Human 100 UNT/ML Inject able Solution [NovoLog] NovoLog 100 UNIT/ML NovoLog 100 UNIT/ML 08/06/2019 12:00:00 AM EDT suspended NovoLog 100 UNIT/ML eCW1 ([facility]) Prednisone 5 MG Oral Tablet PredniSONE 5 MG PredniSONE 5 MG 08/06/2019 12:00:00 AM EDT 1.0 {tablet} active PredniSONE 5 MG eCW1 ([facility]) Prednisone 5 MG Oral Tablet PredniSONE 5 MG PredniSONE 5 MG 08/06/2019 12:00:00 AM EDT 1.0 {tablet} active PredniSONE 5 MG eCW1 ([facility]) pantoprazole 40 MG Delayed Release Oral Tablet [Proton ix] Protonix 40 MG Protonix 40 MG 08/06/2019 12:00:00 AM EDT 1.0 {tablet} suspended Protonix 40 MG eCW1 ([facility]) latanoprost 0.05 MG/ML Ophthalmic Solution Latanoprost 0.005 % Latanoprost 0.005 % 08/06/2019 12:00:00 AM EDT 1.0 {drop_into_affected_eye_in_ the_evening} active Latanoprost 0.005 % eCW1 ([facility]) Insulin, Aspart, Human 100 UNT/ML Inject able Solution [NovoLog] NovoLog 100 UNIT/ML NovoLog 100 UNIT/ML 08/06/2019 12:00:00 AM EDT suspended NovoLog 100 UNIT/ML eCW1 ([facility]) latanoprost 0.05 MG/ML Ophthalmic Solution Latanoprost 0.005 % Latanoprost 0.005 % 08/06/2019 12:00:00 AM EDT 1.0 {drop_into_affected_eye_in_ the_evening} active Latanoprost 0.005 % eCW1 ([facility]) Prednisone 5 MG Oral Tablet PredniSONE 5 MG PredniSONE 5 MG 08/06/2019 12:00:00 AM EDT 1.0 {tablet} active PredniSONE 5 MG eCW1 ([facility]) latanoprost 0.05 MG/ML Ophthalmic Solution Latanoprost 0.005 % Latanoprost 0.005 % 08/06/2019 12:00:00 AM EDT 1.0 {drop_into_affected_eye_in_ the_evening} active Latanoprost 0.005 % eCW1 ([facility]) latanoprost 0.05 MG/ML Ophthalmic Solution Latanoprost 0.005 % Latanoprost 0.005 % 08/06/2019 12:00:00 AM EDT 1.0 {drop_into_affected_eye_in_ the_evening} active Latanoprost 0.005 % eCW1 ([facility]) Acetaminophen 500 MG Oral Tablet Acetaminophen 500 MG 2019 12:00:00 AM EDT 1.0 {tablet_as_needed} active A cetaminophen 500 MG eCW1 ([facility]) Insulin, Aspart, Human 100 UNT/ML Inject able Solution [NovoLog] NovoLog 100 UNIT/ML NovoLog 100 UNIT/ML 08/06/2019 12:00:00 AM EDT suspended NovoLog 100 UNIT/ML eCW1 ([facility]) Sucralfate 1000 MG Oral Tablet Sucralfate 1 GM Sucralfate 1 GM 08/06/2019 12:00:00 AM EDT 1.0 {tablet_on_an_empty_stomach} active Sucralfate 1 GM eCW1 ([facility]) Sucralfate 1000 MG Oral Tablet Sucralfate 1 GM Sucralfate 1 GM 08/06/2019 12:00:00 AM EDT 1.0 {tablet_on_an_empty_stomach} active Sucralfate 1 GM eCW1 ([facility]) Acetaminophen 500 MG Oral Tablet Acetaminophen 500 MG 2019 12:00:00 AM EDT 1.0 {tablet_as_needed} active A cetaminophen 500 MG eCW1 ([facility]) latanoprost 0.05 MG/ML Ophthalmic Solution Latanoprost 0.005 % Latanoprost 0.005 % 08/06/2019 12:00:00 AM EDT 1.0 {drop_into_affected_eye_in_ the_evening} active Latanoprost 0.005 % eCW1 ([facility]) latanoprost 0.05 MG/ML Ophthalmic Solution Latanoprost 0.005 % Latanoprost 0.005 % 08/06/2019 12:00:00 AM EDT 1.0 {drop_into_affected_eye_in_ the_evening} active Latanoprost 0.005 % eCW1 ([facility]) Sucralfate 1000 MG Oral Tablet Sucralfate 1 GM Sucralfate 1 GM 08/06/2019 12:00:00 AM EDT 1.0 {tablet_on_an_empty_stomach} active Sucralfate 1 GM eCW1 ([facility]) Prednisone 5 MG Oral Tablet PredniSONE 5 MG PredniSONE 5 MG 08/06/2019 12:00:00 AM EDT 1.0 {tablet} active PredniSONE 5 MG eCW1 ([facility]) Insulin, Aspart, Human 100 UNT/ML Inject able Solution [NovoLog] NovoLog 100 UNIT/ML NovoLog 100 UNIT/ML 08/06/2019 12:00:00 AM EDT suspended NovoLog 100 UNIT/ML eCW1 ([facility]) pantoprazole 40 MG Delayed Release Oral Tablet [Proton ix] Protonix 40 MG Protonix 40 MG 08/06/2019 12:00:00 AM EDT 1.0 {tablet} suspended Protonix 40 MG eCW1 ([facility]) Sucralfate 1000 MG Oral Tablet Sucralfate 1 GM Sucralfate 1 GM 08/06/2019 12:00:00 AM EDT 1.0 {tablet_on_an_empty_stomach} active Sucralfate 1 GM eCW1 ([facility]) pantoprazole 40 MG Delayed Release Oral Tablet [Proton ix] Protonix 40 MG Protonix 40 MG 08/06/2019 12:00:00 AM EDT 1.0 {tablet} active Protonix 40 MG eCW1 ([facility]) Sucralfate 1000 MG Oral Tablet Sucralfate 1 GM Sucralfate 1 GM 08/06/2019 12:00:00 AM EDT 1.0 {tablet_on_an_empty_stomach} active Sucralfate 1 GM eCW1 ([facility]) Sucralfate 1000 MG Oral Tablet Sucralfate 1 GM Sucralfate 1 GM 08/06/2019 12:00:00 AM EDT 1.0 {tablet_on_an_empty_stomach} active Sucralfate 1 GM eCW1 ([facility]) Sucralfate 1000 MG Oral Tablet Sucralfate 1 GM Sucralfate 1 GM 08/06/2019 12:00:00 AM EDT 1.0 {tablet_on_an_empty_stomach} active Sucralfate 1 GM eCW1 ([facility]) Acetaminophen 500 MG Oral Tablet Acetaminophen 500 MG 2019 12:00:00 AM EDT 1.0 {tablet_as_needed} active A cetaminophen 500 MG eCW1 ([facility]) pantoprazole 40 MG Delayed Release Oral Tablet [Proton ix] Protonix 40 MG Protonix 40 MG 08/06/2019 12:00:00 AM EDT 1.0 {tablet} active Protonix 40 MG eCW1 ([facility]) Sucralfate 1000 MG Oral Tablet Sucralfate 1 GM Sucralfate 1 GM 08/06/2019 12:00:00 AM EDT 1.0 {tablet_on_an_empty_stomach} active Sucralfate 1 GM eCW1 ([facility]) Sucralfate 1000 MG Oral Tablet Sucralfate 1 GM Sucralfate 1 GM 08/06/2019 12:00:00 AM EDT 1.0 {tablet_on_an_empty_stomach} active Sucralfate 1 GM eCW1 ([facility]) Acetaminophen 500 MG Oral Tablet Acetaminophen 500 MG 2019 12:00:00 AM EDT 1.0 {tablet_as_needed} active A cetaminophen 500 MG eCW1 ([facility]) pantoprazole 40 MG Delayed Release Oral Tablet [Proton ix] Protonix 40 MG Protonix 40 MG 08/06/2019 12:00:00 AM EDT 1.0 {tablet} active Protonix 40 MG eCW1 ([facility]) Sucralfate 1000 MG Oral Tablet Sucralfate 1 GM Sucralfate 1 GM 08/06/2019 12:00:00 AM EDT 1.0 {tablet_on_an_empty_stomach} active Sucralfate 1 GM eCW1 ([facility]) pantoprazole 40 MG Delayed Release Oral Tablet [Proton ix] Protonix 40 MG Protonix 40 MG 08/06/2019 12:00:00 AM EDT 1.0 {tablet} suspended Protonix 40 MG eCW1 ([facility]) Insulin, Aspart, Human 100 UNT/ML Inject able Solution [NovoLog] NovoLog 100 UNIT/ML NovoLog 100 UNIT/ML 08/06/2019 12:00:00 AM EDT suspended NovoLog 100 UNIT/ML eCW1 ([facility]) latanoprost 0.05 MG/ML Ophthalmic Solution Latanoprost 0.005 % Latanoprost 0.005 % 08/06/2019 12:00:00 AM EDT 1.0 {drop_into_affected_eye_in_ the_evening} active Latanoprost 0.005 % eCW1 ([facility]) Insulin, Aspart, Human 100 UNT/ML Inject able Solution [NovoLog] NovoLog 100 UNIT/ML NovoLog 100 UNIT/ML 08/06/2019 12:00:00 AM EDT suspended NovoLog 100 UNIT/ML eCW1 ([facility]) Sucralfate 1000 MG Oral Tablet Sucralfate 1 GM Sucralfate 1 GM 08/06/2019 12:00:00 AM EDT 1.0 {tablet_on_an_empty_stomach} active Sucralfate 1 GM eCW1 ([facility]) Insulin, Aspart, Human 100 UNT/ML Inject able Solution [NovoLog] NovoLog 100 UNIT/ML NovoLog 100 UNIT/ML 08/06/2019 12:00:00 AM EDT active NovoLog 100 UNIT/ML eCW1 ([facility]) Sucralfate 1000 MG Oral Tablet Sucralfate 1 GM Sucralfate 1 GM 08/06/2019 12:00:00 AM EDT 1.0 {tablet_on_an_empty_stomach} active Sucralfate 1 GM eCW1 ([facility]) Prednisone 5 MG Oral Tablet PredniSONE 5 MG PredniSONE 5 MG 08/06/2019 12:00:00 AM EDT 1.0 {tablet} active PredniSONE 5 MG eCW1 ([facility]) pantoprazole 40 MG Delayed Release Oral Tablet [Proton ix] Protonix 40 MG Protonix 40 MG 08/06/2019 12:00:00 AM EDT 1.0 {tablet} suspended Protonix 40 MG eCW1 ([facility]) pantoprazole 40 MG Delayed Release Oral Tablet [Proton ix] Protonix 40 MG Protonix 40 MG 08/06/2019 12:00:00 AM EDT 1.0 {tablet} active Protonix 40 MG eCW1 ([facility]) Sucralfate 1000 MG Oral Tablet Sucralfate 1 GM Sucralfate 1 GM 08/06/2019 12:00:00 AM EDT 1.0 {tablet_on_an_empty_stomach} active Sucralfate 1 GM eCW1 ([facility]) Prednisone 5 MG Oral Tablet PredniSONE 5 MG PredniSONE 5 MG 08/06/2019 12:00:00 AM EDT 1.0 {tablet} active PredniSONE 5 MG eCW1 ([facility]) Prednisone 5 MG Oral Tablet PredniSONE 5 MG PredniSONE 5 MG 08/06/2019 12:00:00 AM EDT 1.0 {tablet} active PredniSONE 5 MG eCW1 ([facility]) Acetaminophen 500 MG Oral Tablet Acetaminophen 500 MG 2019 12:00:00 AM EDT 1.0 {tablet_as_needed} active A cetaminophen 500 MG eCW1 ([facility]) pantoprazole 40 MG Delayed Release Oral Tablet [Proton ix] Protonix 40 MG Protonix 40 MG 08/06/2019 12:00:00 AM EDT 1.0 {tablet} suspended Protonix 40 MG eCW1 ([facility]) Prednisone 5 MG Oral Tablet PredniSONE 5 MG PredniSONE 5 MG 08/06/2019 12:00:00 AM EDT 1.0 {tablet} active PredniSONE 5 MG eCW1 ([facility]) pantoprazole 40 MG Delayed Release Oral Tablet [Proton ix] Protonix 40 MG Protonix 40 MG 08/06/2019 12:00:00 AM EDT active 1 tablet eCW1 ([facility]) Sucralfate 1000 MG Oral Tablet Sucralfate 1 GM Sucralfate 1 GM 08/06/2019 12:00:00 AM EDT 1.0 {tablet_on_an_empty_stomach} active Sucralfate 1 GM eCW1 ([facility]) Acetaminophen 500 MG Oral Tablet Acetaminophen 500 MG 2019 12:00:00 AM EDT 1.0 {tablet_as_needed} active A cetaminophen 500 MG eCW1 ([facility]) latanoprost 0.05 MG/ML Ophthalmic Solution Latanoprost 0.005 % Latanoprost 0.005 % 08/06/2019 12:00:00 AM EDT 1.0 {drop_into_affected_eye_in_ the_evening} active Latanoprost 0.005 % eCW1 ([facility]) Prednisone 5 MG Oral Tablet PredniSONE 5 MG PredniSONE 5 MG 08/06/2019 12:00:00 AM EDT 1.0 {tablet} active PredniSONE 5 MG eCW1 ([facility]) latanoprost 0.05 MG/ML Ophthalmic Solution Latanoprost 0.005 % Latanoprost 0.005 % 08/06/2019 12:00:00 AM EDT 1.0 {drop_into_affected_eye_in_ the_evening} active Latanoprost 0.005 % eCW1 ([facility]) latanoprost 0.05 MG/ML Ophthalmic Solution Latanoprost 0.005 % Latanoprost 0.005 % 08/06/2019 12:00:00 AM EDT 1.0 {drop_into_affected_eye_in_ the_evening} active Latanoprost 0.005 % eCW1 ([facility]) pantoprazole 40 MG Delayed Release Oral Tablet [Proton ix] Protonix 40 MG Protonix 40 MG 08/06/2019 12:00:00 AM EDT 1.0 {tablet} suspended Protonix 40 MG eCW1 ([facility]) Insulin, Aspart, Human 100 UNT/ML Inject able Solution [NovoLog] NovoLog 100 UNIT/ML NovoLog 100 UNIT/ML 08/06/2019 12:00:00 AM EDT active NovoLog 100 UNIT/ML eCW1 ([facility]) Sucralfate 1000 MG Oral Tablet Sucralfate 1 GM Sucralfate 1 GM 08/06/2019 12:00:00 AM EDT 1.0 {tablet_on_an_empty_stomach} active Sucralfate 1 GM eCW1 ([facility]) latanoprost 0.05 MG/ML Ophthalmic Solution Latanoprost 0.005 % Latanoprost 0.005 % 08/06/2019 12:00:00 AM EDT 1.0 {drop_into_affected_eye_in_ the_evening} active Latanoprost 0.005 % eCW1 ([facility]) Acetaminophen 500 MG Oral Tablet Acetaminophen 500 MG 2019 12:00:00 AM EDT 1.0 {tablet_as_needed} active A cetaminophen 500 MG eCW1 ([facility]) Insulin, Aspart, Human 100 UNT/ML Inject able Solution [NovoLog] NovoLog 100 UNIT/ML NovoLog 100 UNIT/ML 08/06/2019 12:00:00 AM EDT suspended NovoLog 100 UNIT/ML eCW1 ([facility]) Acetaminophen 500 MG Oral Tablet Acetaminophen 500 MG 2019 12:00:00 AM EDT 1.0 {tablet_as_needed} active A cetaminophen 500 MG eCW1 ([facility]) Insulin, Aspart, Human 100 UNT/ML Inject able Solution [NovoLog] NovoLog 100 UNIT/ML NovoLog 100 UNIT/ML 08/06/2019 12:00:00 AM EDT suspended NovoLog 100 UNIT/ML eCW1 ([facility]) Acetaminophen 500 MG Oral Tablet Acetaminophen 500 MG 2019 12:00:00 AM EDT 1.0 {tablet_as_needed} active A cetaminophen 500 MG eCW1 ([facility]) Acetaminophen 500 MG Oral Tablet Acetaminophen 500 MG 2019 12:00:00 AM EDT 1.0 {tablet_as_needed} active A cetaminophen 500 MG eCW1 ([facility]) Prednisone 5 MG Oral Tablet PredniSONE 5 MG PredniSONE 5 MG 08/06/2019 12:00:00 AM EDT 1.0 {tablet} active PredniSONE 5 MG eCW1 ([facility]) Sucralfate 1000 MG Oral Tablet Sucralfate 1 GM Sucralfate 1 GM 08/06/2019 12:00:00 AM EDT 1.0 {tablet_on_an_empty_stomach} active Sucralfate 1 GM eCW1 ([facility]) Sucralfate 1000 MG Oral Tablet Sucralfate 1 GM Sucralfate 1 GM 08/06/2019 12:00:00 AM EDT 1.0 {tablet_on_an_empty_stomach} active Sucralfate 1 GM eCW1 ([facility]) Prednisone 5 MG Oral Tablet PredniSONE 5 MG PredniSONE 5 MG 08/06/2019 12:00:00 AM EDT 1.0 {tablet} active PredniSONE 5 MG eCW1 ([facility]) Insulin, Aspart, Human 100 UNT/ML Inject able Solution [NovoLog] NovoLog 100 UNIT/ML NovoLog 100 UNIT/ML 08/06/2019 12:00:00 AM EDT suspended NovoLog 100 UNIT/ML eCW1 ([facility]) Acetaminophen 500 MG Oral Tablet Acetaminophen 500 MG 2019 12:00:00 AM EDT 1.0 {tablet_as_needed} active A cetaminophen 500 MG eCW1 ([facility]) Prednisone 5 MG Oral Tablet PredniSONE 5 MG PredniSONE 5 MG 08/06/2019 12:00:00 AM EDT 1.0 {tablet} active PredniSONE 5 MG eCW1 ([facility]) latanoprost 0.05 MG/ML Ophthalmic Solution Latanoprost 0.005 % Latanoprost 0.005 % 08/06/2019 12:00:00 AM EDT 1.0 {drop_into_affected_eye_in_ the_evening} active Latanoprost 0.005 % eCW1 ([facility]) Insulin, Aspart, Human 100 UNT/ML Inject able Solution [NovoLog] NovoLog 100 UNIT/ML NovoLog 100 UNIT/ML 08/06/2019 12:00:00 AM EDT active NovoLog 100 UNIT/ML eCW1 ([facility]) pantoprazole 40 MG Delayed Release Oral Tablet [Proton ix] Protonix 40 MG Protonix 40 MG 08/06/2019 12:00:00 AM EDT 1.0 {tablet} active Protonix 40 MG eCW1 ([facility]) Insulin, Aspart, Human 100 UNT/ML Inject able Solution [NovoLog] NovoLog 100 UNIT/ML NovoLog 100 UNIT/ML 08/06/2019 12:00:00 AM EDT active as directed eCW1 ([facility]) latanoprost 0.05 MG/ML Ophthalmic Solution Latanoprost 0.005 % Latanoprost 0.005 % 08/06/2019 12:00:00 AM EDT 1.0 {drop_into_affected_eye_in_ the_evening} active Latanoprost 0.005 % eCW1 ([facility]) Insulin, Aspart, Human 100 UNT/ML Inject able Solution [NovoLog] NovoLog 100 UNIT/ML NovoLog 100 UNIT/ML 08/06/2019 12:00:00 AM EDT active NovoLog 100 UNIT/ML eCW1 ([facility]) latanoprost 0.05 MG/ML Ophthalmic Solution Latanoprost 0.005 % Latanoprost 0.005 % 08/06/2019 12:00:00 AM EDT 1.0 {drop_into_affected_eye_in_ the_evening} active Latanoprost 0.005 % eCW1 ([facility]) pantoprazole 40 MG Delayed Release Oral Tablet [Proton ix] Protonix 40 MG Protonix 40 MG 08/06/2019 12:00:00 AM EDT 1.0 {tablet} active Protonix 40 MG eCW1 ([facility]) Prednisone 5 MG Oral Tablet PredniSONE 5 MG PredniSONE 5 MG 08/06/2019 12:00:00 AM EDT 1.0 {tablet} active PredniSONE 5 MG eCW1 ([facility]) Sucralfate 1000 MG Oral Tablet Sucralfate 1 GM Sucralfate 1 GM 08/06/2019 12:00:00 AM EDT 1.0 {tablet_on_an_empty_stomach} active Sucralfate 1 GM eCW1 ([facility]) latanoprost 0.05 MG/ML Ophthalmic Solution Latanoprost 0.005 % Latanoprost 0.005 % 08/06/2019 12:00:00 AM EDT 1.0 {drop_into_affected_eye_in_ the_evening} active Latanoprost 0.005 % eCW1 ([facility]) Insulin, Aspart, Human 100 UNT/ML Inject able Solution [NovoLog] NovoLog 100 UNIT/ML NovoLog 100 UNIT/ML 08/06/2019 12:00:00 AM EDT suspended NovoLog 100 UNIT/ML eCW1 ([facility]) Sucralfate 1000 MG Oral Tablet Sucralfate 1 GM Sucralfate 1 GM 08/06/2019 12:00:00 AM EDT 1.0 {tablet_on_an_empty_stomach} active Sucralfate 1 GM eCW1 ([facility]) pantoprazole 40 MG Delayed Release Oral Tablet [Proton ix] Protonix 40 MG Protonix 40 MG 08/06/2019 12:00:00 AM EDT 1.0 {tablet} suspended Protonix 40 MG eCW1 ([facility]) Prednisone 5 MG Oral Tablet PredniSONE 5 MG PredniSONE 5 MG 08/06/2019 12:00:00 AM EDT 1.0 {tablet} active PredniSONE 5 MG eCW1 ([facility]) Citalopram 40 MG Oral Tablet [Celexa] Celexa 40 MG Celexa 40 MG 04/17/2019 12:00:00 AM EST active 1 tab e CW1 ([facility]) Citalopram 40 MG Oral Tablet [Celexa] Celexa 40 MG Celexa 40 MG 04/17/2019 12:00:00 AM EST active Celexa 4 0 MG eCW1 ([facility]) Citalopram 40 MG Oral Tablet [Celexa] Celexa 40 MG Celexa 40 MG 04/17/2019 12:00:00 AM EST active Celexa 4 0 MG eCW1 ([facility]) Citalopram 40 MG Oral Tablet [Celexa] Celexa 40 MG Celexa 40 MG 04/17/2019 12:00:00 AM EST active Celexa 4 0 MG eCW1 ([facility]) Celexa 40 MG UNK 04/17/2019 12:00:00 AM EST activ e 1 tab eCW1 ([facility]) Citalopram 40 MG Oral Tablet [Celexa] Celexa 40 MG Celexa 40 MG 04/17/2019 12:00:00 AM EST active Celexa 4 0 MG eCW1 ([facility]) Citalopram 40 MG Oral Tablet [Celexa] Celexa 40 MG Celexa 40 MG 04/17/2019 12:00:00 AM EST active Celexa 4 0 MG eCW1 ([facility]) Citalopram 40 MG Oral Tablet [Celexa] Celexa 40 MG Celexa 40 MG 04/17/2019 12:00:00 AM EST active Celexa 4 0 MG eCW1 ([facility]) Citalopram 40 MG Oral Tablet [Celexa] Celexa 40 MG Celexa 40 MG 04/17/2019 12:00:00 AM EST active 1 tab e CW1 ([facility]) Citalopram 40 MG Oral Tablet [Celexa] Celexa 40 MG Celexa 40 MG 04/17/2019 12:00:00 AM EST active 1 tab e CW1 ([facility]) Citalopram 40 MG Oral Tablet [Celexa] Celexa 40 MG Celexa 40 MG 04/17/2019 12:00:00 AM EST active Celexa 4 0 MG eCW1 ([facility]) Citalopram 40 MG Oral Tablet [Celexa] Celexa 40 MG Celexa 40 MG 04/17/2019 12:00:00 AM EST active Celexa 4 0 MG eCW1 ([facility]) Citalopram 40 MG Oral Tablet [Celexa] Celexa 40 MG Celexa 40 MG 04/17/2019 12:00:00 AM EST active Celexa 4 0 MG eCW1 ([facility]) Citalopram 40 MG Oral Tablet [Celexa] Celexa 40 MG Celexa 40 MG 04/17/2019 12:00:00 AM EST active Celexa 4 0 MG eCW1 ([facility]) Citalopram 40 MG Oral Tablet [Celexa] Celexa 40 MG Celexa 40 MG 04/17/2019 12:00:00 AM EST active Celexa 4 0 MG eCW1 ([facility]) Citalopram 40 MG Oral Tablet [Celexa] Celexa 40 MG Celexa 40 MG 04/17/2019 12:00:00 AM EST active Celexa 4 0 MG eCW1 ([facility]) Citalopram 40 MG Oral Tablet [Celexa] Celexa 40 MG Celexa 40 MG 04/17/2019 12:00:00 AM EST active Celexa 4 0 MG eCW1 ([facility]) Citalopram 40 MG Oral Tablet [Celexa] Celexa 40 MG Celexa 40 MG 04/17/2019 12:00:00 AM EST active Celexa 4 0 MG eCW1 ([facility]) Citalopram 40 MG Oral Tablet [Celexa] Celexa 40 MG Celexa 40 MG 04/17/2019 12:00:00 AM EST active Celexa 4 0 MG eCW1 ([facility]) Citalopram 40 MG Oral Tablet [Celexa] Celexa 40 MG Celexa 40 MG 04/17/2019 12:00:00 AM EST active Celexa 4 0 MG eCW1 ([facility]) Citalopram 40 MG Oral Tablet [Celexa] Celexa 40 MG Celexa 40 MG 04/17/2019 12:00:00 AM EST active Celexa 4 0 MG eCW1 ([facility]) Citalopram 40 MG Oral Tablet [Celexa] Celexa 40 MG Celexa 40 MG 04/17/2019 12:00:00 AM EST active Celexa 4 0 MG eCW1 ([facility]) Citalopram 40 MG Oral Tablet [Celexa] Celexa 40 MG Celexa 40 MG 04/17/2019 12:00:00 AM EST active Celexa 4 0 MG eCW1 ([facility]) Citalopram 40 MG Oral Tablet [Celexa] Celexa 40 MG Celexa 40 MG 04/17/2019 12:00:00 AM EST active Celexa 4 0 MG eCW1 ([facility]) Citalopram 40 MG Oral Tablet [Celexa] Celexa 40 MG Celexa 40 MG 04/17/2019 12:00:00 AM EST active 1 tab e CW1 ([facility]) Citalopram 40 MG Oral Tablet [Celexa] Celexa 40 MG Celexa 40 MG 04/17/2019 12:00:00 AM EST active Celexa 4 0 MG eCW1 ([facility]) Citalopram 40 MG Oral Tablet [Celexa] Celexa 40 MG Celexa 40 MG 04/17/2019 12:00:00 AM EST active Celexa 4 0 MG eCW1 ([facility]) Citalopram 40 MG Oral Tablet [Celexa] Celexa 40 MG Celexa 40 MG 04/17/2019 12:00:00 AM EST active Celexa 4 0 MG eCW1 ([facility]) Citalopram 40 MG Oral Tablet [Celexa] Celexa 40 MG Celexa 40 MG 04/17/2019 12:00:00 AM EST active Celexa 4 0 MG eCW1 ([facility]) Citalopram 40 MG Oral Tablet [Celexa] Celexa 40 MG Celexa 40 MG 04/17/2019 12:00:00 AM EST active Celexa 4 0 MG eCW1 ([facility]) Citalopram 40 MG Oral Tablet [Celexa] Celexa 40 MG Celexa 40 MG 04/17/2019 12:00:00 AM EST active Celexa 4 0 MG eCW1 ([facility]) Citalopram 40 MG Oral Tablet [Celexa] Celexa 40 MG Celexa 40 MG 04/17/2019 12:00:00 AM EST active Celexa 4 0 MG eCW1 ([facility]) Citalopram 40 MG Oral Tablet [Celexa] Celexa 40 MG Celexa 40 MG 04/17/2019 12:00:00 AM EST active Celexa 4 0 MG eCW1 ([facility]) Citalopram 40 MG Oral Tablet [Celexa] Celexa 40 MG Celexa 40 MG 04/17/2019 12:00:00 AM EST active Celexa 4 0 MG eCW1 ([facility]) Citalopram 40 MG Oral Tablet [Celexa] Celexa 40 MG Celexa 40 MG 04/17/2019 12:00:00 AM EST active Celexa 4 0 MG eCW1 ([facility]) Citalopram 40 MG Oral Tablet [Celexa] Celexa 40 MG Celexa 40 MG 04/17/2019 12:00:00 AM EST active Celexa 4 0 MG eCW1 ([facility]) Citalopram 40 MG Oral Tablet [Celexa] Celexa 40 MG Celexa 40 MG 04/17/2019 12:00:00 AM EST active Celexa 4 0 MG eCW1 ([facility]) Insurance Providers Payer name Policy type / Coverage type Policy ID Covered alliance party ID Covered alliance party's relationship to wright Policy Wright Plan Information MEDICARE COMPLETE [id number] SP [id number] EMEDNY [id number] SP [id number] MEDICARE COMPLETE [id number] SP [id number] [employer] [facility] MEDICARE [id number] S [id number] MEDICAID [id number] S [id number] MEDICARE [id number] SP [id number] MEDICARE COMPLETE-C O [id number] S [id number] MEDICAID M [id number] S [id number] [employer] [facility] MEDICARE [id number] S [id number] [facility] MCRHMO [id number] SP [id number] [facility] MCRHMO [id number] SP [id number] MEDICARE [id number] SP [id number] WELLCARE [id number] SP [id number] EMEDNY [id number] SP [id number] MEDICARE [id number] SP [id number] MEDICARE COMPLETE [id number] SP [id number] MEDICARE COMPLETE [id number] SP [id number] WELLCARE [id number] SP [id number] WELLCARE [id number] SP [id number] WELLCARE O [id number] S [id number] WELLCARE [id number] S [id number] WELLCARE O [id number] S [id number] MEDICARE [id number] SP [id number] MEDICAID [id number] SP [id number] MEDICARE C [id number] S [id number] MEDICAID [id number] SP [id number] WELLCARE [id number] S [id number] MEDICARE [id number] S [id number] WELLCARE [id number] S [id number] MEDICARE -RECURRING [id number] 18 [id number] MEDICAID -RECURRING [id number] ANSI-Medicaid [id number] ANSI-Medicare Part B [id number] ANSI-Medicaid [id number] ANSI-Medicare Part B [id number] ANSI-Medicare Part B [id number] ANSI-Medicaid [id number] ANSI-Medicare Part B [id number] ANSI-Medicaid [id number] ANSI-Medicaid [id number] ANSI-Medicare Part B [id number] ANSI-Medicaid [id number] ANSI-Medicare Part B [id number] ANSI-Medicaid [id number] ANSI-Medicare Part B [id number] ANSI-Medicaid [id number] ANSI-Medicare Part B [id number] ANSI-Medicare Part B [id number] ANSI-Medicaid [id number] ANSI-Medicare Part B [id number] ANSI-Medicaid [id number] ANSI-Medicare Part B [id number] ANSI-Medicaid [id number] ANSI-Medicare Part B [id number] ANSI-Medicaid [id number] ANSI-Medicaid [id number] ANSI-Medicare Part B [id number] ANSI-Medicare Part B [id number] ANSI-Medicaid [id number] MEDICARE -[facility] [id number] ANSI-Medicaid [id number] ANSI-Medicare Part B [id number] ANSI-Medicaid [id number] ANSI-Medicare Part B [id number] ANSI-Medicare Part B [id number] ANSI-Medicaid [id number] Medicaid [place] Medigap Part B [id number] Self [id number] Medicare [place] Medicare Primary [id number] Self [id number] ANSI-Medicare Part B [id number] ANSI-Medicaid [id number] ANSI-Medicaid [id number] ANSI-Medicare Part B [id number] ANSI-Medicaid [id number] ANSI-Medicare Part B [id number] ANSI-Medicare Part B [id number] ANSI-Medicaid [id number] ANSI-Medicare Part B [id number] ANSI-Medicaid [id number] MEDICARE [id number] ANSI-Medicare Part B [id number] ANSI-Medicaid [id number] ANSI-Medicaid [id number] ANSI-Medicare Part B [id number] ANSI-Medicare Part B [id number] [facility]-Medicaid [id number] [facility]-Medicaid [id number] ANSI-Medicare Part B [id number] [facility]-Medicaid [id number] ANSI-Medicare Part B [id number] ANSI-Medicare Part B [id number] ANS-Medicaid [id number] [facility]-Medicaid [id number] ANSI-Medicare Part B [id number] ANSI-Medicaid [id number] ANSI-Medicare Part B [id number] ANSI-Medicaid [id number] ANSI-Medicare Part B [id number] ANSI-Medicaid [id number] ANSI-Medicare Part B [id number] ANSI-Medicaid [id number] ANSI-Medicare Part B [id number] ANSI-Medicare Part B [id number] ANSI-Medicaid [id number] MEDICARE [id number] SP [id number] A ANSI-Medicare Part B [id number] ANSI-Medicaid [id number] [employer] G[employer]RIEL RHONDA [id number] SELF [id number] MEDICARE [id number] SELF [id number] A MEDICARE PART A [id number] Patient [id number] [employer] GABRIEL RHONDA UNAVAILABLE SELF UNAVAILABLE PERSONAL PAY UNAVAILABLE SELF UNAVA ILABLE MEDICARE C [id number] S [id number] A [place] MEDIC[place] PART B C [id number] S [id number] MEDICAID [id number] SP [id number] [place] Part B [id number] Self [id number] [place] Primary [id number] Self [id number] [facility] C [id number] S [id number] [place]ig[place] Part B [id number] Self [id number] [place] Primary [id number] Self [id number] [place] Part [place] [id number] Self [id number] [place] Primary [id number] Self [id number] MEDICAID [id number] SP [id number] MEDICAID [id number] SP [id number] MEDICAID M [id number] Self [id number] MEDICARE A [id number] Self [id number] A MEDICAID -O/P [id number] MEDICARE -O/P [id number] 18 [id number] OTHER WORKERS COMPENSATION [id number] SP [id number] MEDICAID -CLINIC [id number] MEDICARE -CLINIC [id number] 18 [id number] WORKMANS COMPENSATION -O/ [id number] 18 [id number] MEDICAID -PHYSICIAN [id number] WORKMANS COMPENSATION -O/P [id number] 18 [id number] MEDICARE -PHYSICIAN [id number] Problems, Conditions, and Diagnoses Code Display Name Description Problem Type Effective Dates Data Source(s) S88.111A [id number] Below-knee amputation of right lower extr emity Problem 04/06/2020 12:00:00 AM EST eCW1 ([facility]) Z89.512 [id number] 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 Problem 03/11/2020 12:00:00 AM EST eCW1 ([facility]) Z89.511 [id number] Acquired absence of right leg below knee Problem 03/11/2020 12:00:00 AM EST eCW1 ([facility]) S88.119A 969528470 Amputation below knee Problem 02/24/2020 12: 00:00 AM EST eCW1 ([facility]) M86.9 [id number] Osteomyelitis of right foot, unspecif ied type Problem 02/19/2020 12:00:00 AM EST eCW1 ([facility]) 752238953 O/E - Amputated left below knee O/E - Amputated left below knee Problem 01/26/2020 12:00:00 AM EDT [facility] 85384648 Pain in limb Pain in limb Problem 01/26/2020 12:00:00 A M EDT [facility] ([facility] 260917027 Gangrenous disorder Gangrenous disorder Problem 1 12:00:00 AM EDT [facility] [id number] Pressure ulcer of right foot stage 4 Pre ssure ulcer of right foot stage 4 Problem 01/26/2020 12:00:00 AM EDT [facility] 713730361 Type 2 diabetes mellitus with ulcer Type 2 diabetes mellitus with ulcer Problem 01/26/2020 12:00:00 AM EDT [facility] ([facility] L97.514 479719384 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 Problem 12/31/2019 12:00:00 AM EDT eCW1 ([facility]) E11.621 332254473 Type 2 diabetes mellitus with foot ulcer Problem 12/31/2019 12:00:00 AM EDT eCW1 ([facility]) E10.69 35794659 Type 1 diabetes mellitus with ot her specified complication Problem 10/17/2019 12:00:00 AM EDT eCW1 ([facility]) L97.519 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 Non-pressure chronic ulcer of other part of right foot with unspecified severity Problem 09/18/2019 12:00:00 AM EDT eCW1 ([facility]) E10.621 Foot ulcer due to type 1 diabetes [facility] Type 1 diabetes mellitus with foot ulcer Problem 09/18/2019 12:00:00 AM EDT eCW1 ([facility]) 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 Diagnosis 03/02/2020 02:32:00 PM [facility] Z96.41 Presence of insulin pump (external) (int ernal) PRESENCE OF INSULIN PUMP (EXTERNAL) (INTERNAL) Diagnosis 03/02/2020 02:32:00 PM [facility] E10.65 Type 1 diabetes mellitus with hyperglyce sera TYPE 1 DIABETES MELLITUS WITH HYPERGLYCEMIA Diagnosis 03/02/2020 02:32:00 PM [facility] E27.40 Unspecified adrenocortical insufficiency UNSPECIFIED ADRENOCORTICAL INSUFFICIENCY Diagnosis 04/24/2019 03:04:00 PM [facility] Surgeries/Procedures Procedure Description Date Indications Data Source(s) Amputation Below Knee 03/03/2020 12:00:00 [facility] outpatient clinic visit for assessment and ma nagement of a patient Hospital Outpatient Clinic Visit 03/02/2020 12:00:00 AM [facility] COLLECTION VENOUS BLOOD VENIPUNCTURE ROUTINE VENIPUNCTURE 12:00:00 AM [facility] HEMOGLOBIN GLYCOSYLATED A1C GLYCOSYLATED HEMOGLOBIN TEST 04/2019 12:00:00 AM [facility] FINE NEEDLE ASPIRATION W/O IMAGING GUIDANCE 02/23/2020 12:00:00 AM EST eCW1 ([facility]) Amputation Metatarsal W/Toe 01/28/2020 12:00:00 AM EDT [facility] ([facility] FINE NEEDLE ASPIRATION W/O IMAGING GUIDANCE 01/19/2020 12:00:00 AM EDT eCW1 ([facility]) FINE NEEDLE ASPIRATION W/O IMAGING GUIDANCE 01/09/2020 12:00:00 AM EDT eCW1 ([facility]) Revascularization,Endovascular,Transluminal Angioplasty 12/31/2019 12:00:00 AM EDT [facility] ([facility] ) REVSC OPN/PRQ TIB/FABIENNE W/ANGIOPLASTY UNI 12/31/2019 12 :00:00 AM EDT [facility] ([facility], ) REVSC OPN/PRQ TIB/FABIENNE W/ANGIOPLASTY UNI EA VSL 2019 12:00:00 AM EDT [facility] ([facility], ) Moderate Sedation Services; Same Phys Intl 15 Mins; PT >= 5 Years 12/31/2019 12:00:00 AM EDT [facility] ([facility], ) Angiography Internal Corotid Of The Ipsil Intrac Circulation 10/08/2019 12:00:00 AM EDT [facility] ([facility] ) Each Intracranial Branch Of The Internal Corotid/Vertebral 10/08/2019 12:00:00 AM EDT [facility] ([facility], ) REVSC OPN/PRQ TIB/FABIENNE W/ANGIOPLASTY UNI EA VSL 2019 12:00:00 AM EDT [facility] ([facility], ) REVSC OPN/PRQ TIB/FABIENNE W/ANGIOPLASTY UNI EA VSL 2019 12:00:00 AM EDT [facility] ([facility], ) Moderate Sedation Services; Same Phys Intl 15 Mins; PT >= 5 Years 10/08/2019 12:00:00 AM EDT [facility] ([facility], ) Endoscopy Upper GI Biopsy 09/17/2019 12:00:00 AM EDT [facility] ([facility], ) Office Visit, Est Pt., Level 2 FC 08/14/2019 12:00:00 AM EDT eCW1 ([facility]) TRANS CARE MGMT 7 DAY DISCH 08/14/2019 12:00:00 AM EDT eCW1 ([facility]) Transitional Care NO CHARGE Visit 08/07/2019 12:00:00 AM EDT eCW1 ([facility]) DSTRJ LESION ANUS EXTENSIVE 06/06/2019 12:00:00 AM EST eCW1 ([facility]) GLUC BLD GLUC MNTR DEV CLEARED FDA SPEC HOME USE GLUCOSE BLO OD TEST 04/24/2019 12:00:00 AM [facility] BASIC METABOLIC PANEL CALCIUM TOTAL METABOLIC PANEL TOTAL CA 04/24/2019 12:00:00 AM [facility] Results ID Date Data Source [id number] 04/29/2020 10:04:00 AM EST [facility] Name Value Range Interpretation Code Description Data Mireille rce(s) Supporting Document(s) SARS COVID ANTIGEN POSITIVE [facility] This lab was ordered by POLI MEJIA a nd reported by [facility]. ID Date Data Source [id number] 04/12/2020 08:23:00 PM EST [facility] Name Value Range Interpretation Code Description Data Mireille rce(s) Supporting Document(s) SARS-CoV-2 (COVID 19) NEGATIVE - SARS-CoV-2 (COVID19) [facility] This lab was ordered by [facility] a nd reported by [facility]. ID Date Data Source [id number] 03/16/2020 05:11:00 AM [facility] Name Value Range Interpretation Code Description Data Mireille rce(s) Supporting Document(s) Hemoglobin A1C % Less than 5.7% Above high normal [facility] HBA1C: Normal: Less than 5.7% Prediabetes: 5.7% to 6.4% Diabetes: 6.5% or higher HA1C % vs Estimated Average Glucose (eAG) % eAG % eAG 6% 126 mg/dL 10% 240 mg/dL 7% 154 mg/dL 11% 269 mg/dL 8% 183 mg/dL 12% 298 mg/dL 9% 212 mg/dL Reference: [place] [employer], 2017 ID Date Data Source [id number] 02/28/2020 11:00:00 AM EST [facility] Name Value Range Interpretation Code Description Data [facility] rce(s) Supporting Document(s) SARS coronavirus 2 RNA [facility] This lab was ordered by [facility] and reported by [facility]. ID Date Data Source [id number] 01/28/2020 04:53:00 PM EDT [facility] ([facility] Name Value Range Interpretation Code Description Data [facility] rce(s) Supporting Document(s) Glucose [Mass/volume] in Capillary blood by Glucometer 154 mg/dL 80-115 Above high normal [facility] ([facility] ID Date Data Source [id number] 01/28/2020 04:09:00 PM EDT [facility] ([facility] Name Value Range Interpretation Code Description Data [facility] Document(s) Surgical pathology study Laboratory test [...] An area of gangrenous changes is noted. Laser Cutter sections are submitted in two after decalcification. -OA 01/29/20201303 Signed SALINA SAUNDERS MD 01/30/2020 0957 ID Date Data Source [id number] 01/28/2020 11:26:00 AM EDT [facility] ([facility] Name Value Range Interpretation Code Description Data Mireille rce(s) Supporting Document(s) Glucose [Mass/volume] in Capillary blood by Glucometer 91 mg/dL 80- 115 [facility] ([facility] ID Date Data Source [id number] 12/31/2019 11:17:00 AM EDT [facility] ([facility]) Name Value Range Interpretation Code Description Data Mireille rce(s) Supporting Document(s) Glucose [Mass/volume] in Capillary blood by Glucometer 142 mg/dL 80-115 Above high normal [facility] ([facility]) ID Date Data Source [id number] 12/31/2019 08:51:00 AM EDT [facility] ([facility]) Name Value Range Interpretation Code Description Data Mireille rce(s) Supporting Document(s) Glucose [Mass/volume] in Capillary blood by Glucometer 131 mg/dL 80-115 Above high normal [facility] ID Date Data Source [id number] 12/17/2019 10:05:00 AM EDT [facility] Name Value Range Interpretation Code Description Data Mireille rce(s) Supporting Document(s) Glucose, Fasting 158 mg/dL 70-100 Above high normal [facility] ([facility]) Blood Urea Nitrogen 15 mg/dL 7-18 Normal (applies to non-nume nelson results) [facility] Creatinine For GFR 1.36 mg/dL 0.70-1.30 Above high normal [facility] ([facility]) Glomerular Filtration Rate 56.9 Normal (applies to n on-numeric results) [facility] <content>Units are mL/min/1.73 m2</content>
<content></content>
<content>Chronic Kidney Disease Staging per NKF:</content>
<content></content>
<content>Stage I & II GFR >=60 Normal to Mildly Decreased</content>
<content>Stage III GFR 30- 59 Moderately Decreased</content>
<content>Stage IV GFR 15-29 Severely Decreased</content>
<content>Stage V GFR <15 Very Little GFR Left</content>
<content>ESRD GFR <15 on AUXILIARY OPERATOR</content>
<content></content> Chloride Level 105 meq/L 98-107 Normal (applies to non-numeric r esults) [facility] ([facility]) Potassium Serum 4.6 meq/L 3.5-5.1 Normal (applies to non-numeric results) [facility] ([facility]) Sodium Level 139 meq/L 136-145 Normal (applies to non-numeric res ults) [facility] ([facility]) Calcium Level 9.3 mg/dL 8.8-10.2 Normal (applies to non-numeric re sults) [facility] ([facility]) Anion Gap 7 meq/L 8-16 Below low normal [facility] ( [facility]) Carbon Dioxide Level 27 meq/L 21-32 Normal (applies to non-num gage results) [facility] ([facility]) ID Date Data Source [id number] 12/17/2019 10:05:00 AM EDT [facility]) Name Value Range Interpretation Code Description Data Mireille rce(s) Supporting Document(s) White Blood Count 6.8 10 4.0-10.0 Normal (applies to non-numeri c results) [facility] ([facility]) Red Blood Count 3.47 10 4.30-6.10 Below low normal [facility] ([facility]) Hemoglobin 11.2 g/dL 13.5-17.5 Below low normal [facility] ( [facility]) Hematocrit 32.8 % 42.0-52.0 Below low normal [facility] ( [facility]) Mean Corpuscular Volume 94.5 fl 80.0-96.0 Normal ( applies to non-numeric results) [facility] ([facility], ) Mean Corpuscular Hemoglobin 32.3 pg 27.0-33.0 Norm al (applies to non-numeric results) [facility]) Mean Corpuscular HGB Conc 34.1 g/dL 32.0-36.5 Normal (applies to non-numeric results) [facility]) Red Cell Distribution Width 12.1 % 11.5-14.5 Norm al (applies to non-numeric results) [facility] ([facility]) Nucleated Red Blood Cell % 0.0 % 0-0 Normal (applies to n on-numeric results) [facility] ([facility]) Platelet Count, Automated 214 10 150-450 Normal (applies to non-numeric results) [facility]) ID Date Data Source [id number] 12/01/2019 06:43:00 PM EDT [facility] Name Value Range Interpretation Code Description Data Mireille rce(s) Supporting Document(s) Triglycerides 101 mg/dL 0-150 Normal (applies to non-numeric re sults) [facility] Cholesterol 163 mg/dL 0-200 Normal (applies to non-numeric resu lts) [facility] LDL Cholesterol,Direct 77 mg/dL <100 Normal (applies to non-n umeric results) [facility] LDL Interpretative Data Optimal <100 (mg/dL) Near optimal 100-129 (mg/dL) Borderline High 130-159 (mg/dL) High 160-189 (mg/dL) Very High >190 (mg/dL) HDL Cholesterol 73 mg/dL 40-60 Above high normal [facility] CHOL/HDL Ratio Normal (applies to non-numeric r esults) [facility] NATIONAL CHOLESTEROL GUIDEL [facility], [...] Average 13.5 11.0 ID Date Data Source [id number] 12/01/2019 06:43:00 PM EDT [facility] Name Value Range Interpretation Code Description Data Mireille rce(s) Supporting Document(s) Sodium 138 mmol/L 137-145 Normal (applies to non-numeric resul ts) [facility] Potassium 3.5-5.1 Normal (applies to non-numeric resul ts) [facility] Chloride 105 mmol/L 98-112 Normal (applies to non-numeric resul ts) [facility] Carbon Dioxide CO2 22.0-33.0 Normal (applies to non-numer ic results) [facility] Anion Gap 4.0-11.0 Normal (applies to non-numeric resul ts) [facility] BUN 16 mg/dL 9-20 Normal (applies to non-numeric resul ts) [facility] Creatinine 0.80-1.50 Normal (applies to non-numeric resul ts) [facility] GFR 48 mL/min >60 Below low normal [facility] Result based on MDRD formula. Glucose Level 66 mg/dL 74-99 Below low normal [facility] The reference range is only applicable w hen fasting. Calcium-Uncorrected 8.4-10.2 Normal (applies to non-nume nelson results) [facility] Corrected Calcium 8.4-10.2 Normal (applies to non-numeri c results) [facility] ID Date Data Source [id number] 12/01/2019 06:43:00 PM EDT [facility] Name Value Range Interpretation Code Description Data Mireille rce(s) Supporting Document(s) Thyroid Stimulate Hormone TSH 0.358-3.740 No rmal (applies to non-numeric results) [facility] ID Date Data Source [id number] 12/01/2019 06:40:00 PM EDT [facility] Name Value Range Interpretation Code Description Data Mireille rce(s) Supporting Document(s) Creatinine,Urine Normal (applies to non-numeric results) [facility] Interpret with care as there is no estab lished reference range associated with this assay's methodology that pertains to this particular sex and/or age. Microalbumin,Urine <1.7 Normal (applies to non-numer ic results) [facility] Albumin/Creatinine Ratio,Urine Normal (applies to non-numeric results) [facility] Reference Ranges for Microalbumin,spot: Normal <30 ug/mg creatinine Microalbuminuria 30-300 ug/mg creatinine Clinical Albuminuria >300 ug/mg creatinine ID Date Data Source [id number] 12/01/2019 06:23:00 PM EDT [facility] Name Value Range Interpretation Code Description Data Mireille rce(s) Supporting Document(s) Hemoglobin A1C % Less than 5.7% Above high normal [facility] HBA1C: Normal: Less than 5.7% Prediabetes: 5.7% to 6.4% Diabetes: 6.5% or higher HA1C % vs Estimated Average Glucose (eAG) % eAG % eAG 6% 126 mg/dL 10% 240 mg/dL 7% 154 mg/dL 11% 269 mg/dL 8% 183 mg/dL 12% 298 mg/dL 9% 212 mg/dL Reference: [place] [employer], 2017 ID Date Data Source [id number] 10/08/2019 12:37:00 PM EDT [facility] Name Value Range Interpretation Code Description Data Mireille rce(s) Supporting Document(s) Glucose [Mass/volume] in Capillary blood by Glucometer 190 mg/dL 80-115 Above high normal [facility] ([facility]) ID Date Data Source [id number] 10/08/2019 09:46:00 AM EDT [facility] ([facility]) Name Value Range Interpretation Code Description Data Mireille rce(s) Supporting Document(s) Glucose [Mass/volume] in Capillary blood by Glucometer 208 mg/dL 80-115 Above high normal [facility] ([facility]) ID Date Data Source [id number] 10/08/2019 08:33:00 AM EDT [facility] Name Value Range Interpretation Code Description Data Mireille rce(s) Supporting Document(s) Glucose, Fasting 60 mg/dL 70-100 Below low normal [facility] ([facility]) Glomerular Filtration Rate 48.9 Below low normal [facility] ([facility]) <content>Units are mL/min/1.73 m2</content>
<content></content>
<content>Chronic Kidney Disease Staging per NKF:</content>
<content></content>
<content>Stage I & II GFR >=60 Normal to Mildly Decreased</content>
<content>Stage III GFR 30- 59 Moderately Decreased</content>
<content>Stage IV GFR 15-29 Severely Decreased</content>
<content>Stage V GFR <15 Very Little GFR Left</content>
<content>ESRD GFR <15 on AUXILIARY OPERATOR</content>
<content></content> Creatinine For GFR 1.55 mg/dL 0.70-1.30 Above high normal [facility] ([facility]) Blood Urea Nitrogen 18 mg/dL 7-18 Normal (applies to non-nume nelson results) [facility] ([facility]) Potassium Serum 4.3 meq/L 3.5-5.1 Normal (applies to non-numeric results) [facility] ([facility]) Chloride Level 107 meq/L 98-107 Normal (applies to non-numeric r esults) [facility] ([facility]) Sodium Level 141 meq/L 136-145 Normal (applies to non-numeric res ults) [facility] ([facility]) Carbon Dioxide Level 26 meq/L 21-32 Normal (applies to non-num gage results) [facility] ([facility]) Anion Gap 8 meq/L 8-16 Normal (applies to non-numeric resul ts) [facility] ([facility]) Calcium Level 9.3 mg/dL 8.8-10.2 Normal (applies to non-numeric re sults) [facility]) ID Date Data Source [id number] 10/08/2019 08:33:00 AM EDT [facility]) Name Value Range Interpretation Code Description Data Mireille rce(s) Supporting Document(s) White Blood Count 7.1 10 4.0-10.0 Normal (applies to non-numeri c results) [facility] ([facility]) Red Blood Count 3.97 10 4.30-6.10 Below low normal [facility] ([facility]) Hemoglobin 12.6 g/dL 13.5-17.5 Below low normal [facility] ( [facility]) Mean Corpuscular Volume 97.0 fl 80.0-96.0 Above high normal [facility] ([facility]) Hematocrit 38.5 % 42.0-52.0 Below low normal [facility] ( [facility]) Mean Corpuscular HGB Conc 32.7 g/dL 32.0-36.5 Normal (applies to non-numeric results) [facility] ([facility]) Red Cell Distribution Width 12.1 % 11.5-14.5 Norm al (applies to non-numeric results) [facility]) Mean Corpuscular Hemoglobin 31.7 pg 27.0-33.0 Norm al (applies to non-numeric results) [facility] ([facility]) Platelet Count, Automated 206 10 150-450 Normal (applies to non-numeric results) [facility] ([facility]) Nucleated Red Blood Cell % 0.0 % 0-0 Normal (applies to n on-numeric results) [facility]) ID Date Data Source [id number] 09/17/2019 11:28:00 AM EDT [facility]) Name Value Range Interpretation Code Description Data Mireille rce(s) Supporting Document(s) Surgical pathology study Laboratory test result [facility] ([facility], ) FINAL DIAGNOSIS A - Duodenal bulb, biopsy: Duodenal mucosa without significant pathology. B - Gastric body, biopsy: Oxyntic type gastric mucosa with minimal chronic inflammation and reactive changes. No H.Pylori is seen. C - Lower esophagus, biopsy: Sadnoval's Mucosa present. Chronic inflammation. No evidence of [...] MD 09/18/2019 1420 ID Date Data Source [id number] 09/14/2019 10:40:00 AM EDT [facility] Name Value Range Interpretation Code Description Data [facility] rce(s) Supporting Document(s) SARS CORONAVIRUS 2 RNA [facility] This lab was ordered by [facility] and reported by [facility]. ID Date Data Source [id number] 04/24/2019 06:44:00 PM EST [facility] Name Value Range Interpretation Code Description Data [facility] rce(s) Supporting Document(s) Sodium 140 mmol/L 137-145 Normal (applies to non-numeric resul ts) [facility] Potassium 3.5-5.1 Normal (applies to non-numeric resul ts) [facility] Chloride 105 mmol/L 98-112 Normal (applies to non-numeric resul ts) [facility] Carbon Dioxide CO2 22.0-33.0 Normal (applies to non-numer ic results) [facility] Anion Gap 4.0-11.0 Normal (applies to non-numeric resul ts) [facility] BUN 14 mg/dL 9-20 Normal (applies to non-numeric resul ts) [facility] Creatinine 0.80-1.50 Normal (applies to non-numeric resul ts) [facility] GFR 52 mL/min >60 Below low normal [facility] Result based on MDRD formula. Glucose Level 67 mg/dL 74-99 Below low normal [facility] The reference range is only applicable w hen fasting. Calcium-Uncorrected 8.4-10.2 Normal (applies to non-nume nelson results) [facility] Corrected Calcium 8.4-10.2 Normal (applies to non-numeri c results) [facility] ID Date Data Source [id number] 04/24/2019 06:41:00 PM EST [facility] Name Value Range Interpretation Code Description Data Mireille rce(s) Supporting Document(s) Hemoglobin A1C % Less than 5.7% Above high normal [facility] HBA1C: Normal: Less than 5.7% Prediabetes: 5.7% to 6.4% Diabetes: 6.5% or higher HA1C % vs Estimated Average Glucose (eAG) % eAG % eAG 6% 126 mg/dL 10% 240 mg/dL 7% 154 mg/dL 11% 269 mg/dL 8% 183 mg/dL 12% 298 mg/dL 9% 212 mg/dL Reference: [place] [employer], 2017 Procedure Social History Code Duration Value Status Description Data Source(s ) Smoking 04/29/2020 12:00:00 AM EST Former Smoker completed Former Smoker eCW1 ([facility]) Smoking 04/06/2020 12:00:00 AM EST Former Smoker completed Former Smoker eCW1 ([facility]) Smoking 04/06/2020 12:00:00 AM EST Former Smoker completed Former Smoker eCW1 ([facility]) Smoking 04/06/2020 12:00:00 AM EST Former Smoker completed Former Smoker eCW1 ([facility]) Smoking 04/06/2020 12:00:00 AM EST Former Smoker completed Former Smoker eCW1 ([facility]) Smoking 04/06/2020 12:00:00 AM EST Former Smoker completed Former Smoker eCW1 ([facility]) Smoking 04/06/2020 12:00:00 AM EST Former Smoker completed Former Smoker eCW1 ([facility]) Smoking 04/06/2020 12:00:00 AM EST Former Smoker completed Former Smoker eCW1 ([facility]) Smoking 04/05/2020 12:00:00 AM EST Non Smoker completed Non Smoke r [facility] ([facility], ) Smoking 02/25/2020 12:00:00 AM EST Former Smoker completed Former Smoker eCW1 ([facility]) Smoking 02/25/2020 12:00:00 AM EST Former Smoker completed Former Smoker eCW1 ([facility]) Smoking 02/25/2020 12:00:00 AM EST Former Smoker completed Former Smoker eCW1 ([facility]) Smoking 02/25/2020 12:00:00 AM EST Former Smoker completed Former Smoker eCW1 ([facility]) Smoking 02/25/2020 12:00:00 AM EST Former Smoker completed Former Smoker eCW1 ([facility]) Smoking 02/25/2020 12:00:00 AM EST Former Smoker completed Former Smoker eCW1 ([facility]) Smoking 02/25/2020 12:00:00 AM EST Former Smoker completed Former Smoker eCW1 ([facility]) Smoking 02/24/2020 12:00:00 AM EST Former Smoker completed Former Smoker eCW1 ([facility]) Smoking 02/19/2020 12:00:00 AM EST Former Smoker completed Former Smoker eCW1 ([facility]) Smoking 02/19/2020 12:00:00 AM EST Former Smoker completed Former Smoker eCW1 ([facility]) Smoking 02/19/2020 12:00:00 AM EST Former Smoker completed Former Smoker eCW1 ([facility]) Smoking 02/09/2020 12:00:00 AM EST Former Smoker completed Former Smoker eCW1 ([facility]) Smoking 02/09/2020 12:00:00 AM EST Former Smoker completed Former Smoker eCW1 ([facility]) Smoking 01/19/2020 12:00:00 AM EDT Former Smoker completed Former Smoker eCW1 ([facility]) Smoking 01/19/2020 12:00:00 AM EDT Former Smoker completed Former Smoker eCW1 ([facility]) Smoking 01/19/2020 12:00:00 AM EDT Former Smoker completed Former Smoker eCW1 ([facility]) Smoking 09/18/2019 12:00:00 AM EDT Former Smoker completed Former Smoker eCW1 ([facility]) Smoking 09/18/2019 12:00:00 AM EDT Former Smoker completed Former Smoker eCW1 ([facility]) Smoking 09/18/2019 12:00:00 AM EDT Former Smoker completed Former Smoker eCW1 ([facility]) Smoking 09/18/2019 12:00:00 AM EDT Former Smoker completed Former Smoker eCW1 ([facility]) Smoking 08/14/2019 12:00:00 AM EDT Former Smoker completed Former Smoker eCW1 ([facility]) Smoking 08/14/2019 12:00:00 AM EDT Former Smoker completed Former Smoker eCW1 ([facility]) Smoking 08/14/2019 12:00:00 AM EDT Former Smoker completed Former Smoker eCW1 ([facility]) Smoking 08/14/2019 12:00:00 AM EDT Former Smoker completed Former Smoker eCW1 ([facility]) Vital Signs ID Date Data Source UNK Name Value Range Interpretation Code Description Data Source(s) Body surface area Derived from formula 1.79 m2 1.79 m2 [facility] ([facility]) Body weight 64.865 kg 64.865 kg [facility] ([facility]) [place] body weight 160 [lb_av] 160 [lb_av] [facility] ([facility]) Body mass index (BMI) [Ratio] 21.1 kg/m2 21.1 k g/m2 [facility] ([facility]) Body weight 143.00 [lb_av] 143.00 [lb_av] [facility] ([facility]) stated Body height 69 [in_i] 69 [in_i] [facility] ([facility]) 5'9" Diastolic blood pressure 73 mm[Hg] 73 mm[Hg] [facility] Systolic blood pressure 123 mm[Hg] 123 mm[Hg] M [facility] ([facility]) Diastolic blood pressure 65 mm[Hg] 65 mm[Hg] eCW1 ([facility]) Systolic blood pressure 136 mm[Hg] 136 mm[Hg] e CW1 ([facility]) Body temperature 98.3 [degF] 98.3 [degF] eCW1 ( [facility]) Respiratory rate 18 /min 18 /min eCW1 ([facility]) Heart rate 74 /min 74 /min eCW1 ([facility]) Body mass index (BMI) [Ratio] 22.89 kg/m2 22.89 kg/m2 eCW1 ([facility]) Body height 69 [in_i] 69 [in_i] eCW1 ([facility]) Body weight 155 [lb_av] 155 [lb_av] eCW1 ([facility]) [place] body weight 160 [lb_av] 160 [lb_av] MED[facility] T ([facility]) Body mass index (BMI) [Ratio] 21.1 kg/m2 21.1 k g/m2 [facility] ([facility]) Body weight 143.00 [lb_av] 143.00 [lb_av] [facility] ([facility]) Body height 69 [in_i] 69 [in_i] [facility] [facility] ([facility], ) 5'9" Diastolic blood pressure 63 mm[Hg] 63 mm[Hg] [facility] Systolic blood pressure 110 mm[Hg] 110 mm[Hg] M EDENT ([facility]) Body surface area Derived from formula 1.79 m2 1.79 m2 [facility] ([facility]) Body weight 64.865 kg 64.865 kg [facility] ([facility], ) [place] body weight 160 [lb_av] 160 [lb_av] MEDEN T ([facility]) Body height 69 [in_i] 69 [in_i] MEDENT ([facility]) 5'9" Heart rate 85 /min 85 /min MEDENT ([facility]) Diastolic blood pressure 61 mm[Hg] 61 mm[Hg] MEDENT ([facility]) Systolic blood pressure 126 mm[Hg] 126 mm[Hg] M EDENT ([facility]) Diastolic blood pressure 78 mm[Hg] 78 mm[Hg] eCW1 ([facility]) Systolic blood pressure 188 mm[Hg] 188 mm[Hg] e CW1 ([facility]) Body temperature 97.7 [degF] 97.7 [degF] eCW1 ( [facility]) Respiratory rate 20 /min 20 /min eCW1 ([facility]) Heart rate 90 /min 90 /min eCW1 ([facility]) Body mass index (BMI) [Ratio] 24.22 kg/m2 24.22 kg/m2 W1 ([facility]) Body height 69 [in_i] 69 [in_i] eCW1 ([facility]) Body weight 164 [lb_av] 164 [lb_av] eCW1 ([facility]) Diastolic blood pressure 58 mm[Hg] 58 mm[Hg] eCW1 ([facility]) Systolic blood pressure 107 mm[Hg] 107 mm[Hg] e CW1 ([facility]) Body temperature 98.5 [degF] 98.5 [degF] eCW1 ( [facility]) Respiratory rate 20 /min 20 /min eCW1 ([facility]) Heart rate 82 /min 82 /min eCW1 ([facility]) Body mass index (BMI) [Ratio] 24.22 kg/m2 24.22 kg/m2 W1 ([facility]) Body height 69 [in_i] 69 [in_i] eCW1 ([facility]) Body weight 164 [lb_av] 164 [lb_av] eCW1 ([facility]) Diastolic blood pressure mm[Hg] eCW1 ([facility]) Systolic blood pressure 188 mm[Hg] 188 mm[Hg] e CW1 ([facility]) Body temperature 98.2 [degF] 98.2 [degF] eCW1 ( [facility]) Respiratory rate 22 /min 22 /min eCW1 ([facility]) Heart rate 88 /min 88 /min eCW1 ([facility]) Body mass index (BMI) [Ratio] 24.81 kg/m2 24.81 kg/m2 eCW1 ([facility]) Body height 69 [in_i] 69 [in_i] eCW1 ([facility]) Body weight kg eCW1 ([facility]) Body weight 168 [lb_av] 168 [lb_av] eCW1 ([facility]) Body mass index (BMI) [Ratio] 24.8 [...] from formula 1.92 m2 1.92 m2 MEDENT ([facility], ) Body weight 76.318 kg 76.318 kg MEDENT ([facility]) [place] body weight 160 [lb_av] 160 [lb_av] MEDEN T ([facility]) Body mass index (BMI) [Ratio] 24.8 kg/m2 24.8 k g/m2 [facility] ([facility]) Body weight 168.25 [lb_av] 168.25 [lb_av] MED[facility] T ([facility]) Body height 69 [in_i] 69 [in_i] [facility] ([facility]) 5'9" Diastolic blood pressure 70 mm[Hg] 70 mm[Hg] [facility] ([facility]) Systolic blood pressure 128 mm[Hg] 128 mm[Hg] M EDENT ([facility]) Diastolic blood pressure 69 mm[Hg] 69 mm[Hg] eCW1 ([facility]) Systolic blood pressure 107 mm[Hg] 107 mm[Hg] e CW1 ([facility]) Body temperature 94.6 [degF] 94.6 [degF] eCW1 ( [facility]) Respiratory rate 18 /min 18 /min eCW1 ([facility]) Heart rate 77 /min 77 /min W1 ([facility]) Body mass index (BMI) [Ratio] 24.81 kg/m2 24.81 kg/m2 W1 ([facility]) Body height 69 [in_i] 69 [in_i] eCW1 ([facility]) Body weight kg eCW1 ([facility]) Body weight 168 [lb_av] 168 [lb_av] eCW1 ([facility]) Body mass index (BMI) [Ratio] 24.81 kg/m2 24.81 kg/m2 W1 ([facility]) Body height 69 [in_i] 69 [in_i] eCW1 ([facility]) Body weight kg eCW1 ([facility]) Body weight 168 [lb_av] 168 [lb_av] eCW1 ([facility]) Body weight 78.926 kg 78.926 kg MEDENT ([facility]) [place] body weight 160 [lb_av] 160 [lb_av] MEDEN T ([facility]) Body mass index (BMI) [Ratio] 25.7 kg/m2 25.7 k g/m2 [facility] ([facility]) Body weight 174.00 [lb_av] 174.00 [lb_av] MEDEN T ([facility]) Body height 69 [in_i] 69 [in_i] [facility] 5'9" Diastolic blood pressure 70 mm[Hg] 70 mm[Hg] [facility] ([facility]) Systolic blood pressure 124 mm[Hg] 124 mm[Hg] [facility] ([facility]) Body mass index (BMI) [Ratio] 25.5 kg/m2 25.5 k g/m2 [facility] ([facility]) Body weight 173.00 [lb_av] 173.00 [lb_av] MEDEN T ([facility]) Body height 69 [in_i] 69 [in_i] [facility] ([facility]) 5'9" Diastolic blood pressure 82 mm[Hg] 82 mm[Hg] [facility] ([facility]) Systolic blood pressure 140 mm[Hg] 140 mm[Hg] [facility] ([facility]) Body weight 78.473 kg 78.473 kg [facility] ([facility]) Body weight 77.566 kg 77.566 kg [facility] ([facility]) Body mass index (BMI) [Ratio] 25.2 kg/m2 25.2 k g/m2 [facility] ([facility]) Body weight 171.00 [lb_av] 171.00 [lb_av] MED[facility] T ([facility]) Body height 69 [in_i] 69 [in_i] [facility] 5'9" Diastolic blood pressure 70 mm[Hg] 70 mm[Hg] [facility] ([facility]) Systolic blood pressure 120 mm[Hg] 120 mm[Hg] [facility] ([facility]) Body weight 77.112 kg 77.112 kg [facility] ([facility]) Body mass index (BMI) [Ratio] 25.1 kg/m2 25.1 k g/m2 [facility] ([facility]) Body weight 170.00 [lb_av] 170.00 [lb_av] MED[facility] T ([facility]) Body height 69 [in_i] 69 [in_i] [facility] ([facility]) 5'9" Diastolic blood pressure 80 mm[Hg] 80 mm[Hg] [facility] ([facility]) Systolic blood pressure 153 mm[Hg] 153 mm[Hg] [facility] ([facility]) Body weight 77.225 kg 77.225 kg [facility] ([facility]) Body mass index (BMI) [Ratio] 25.1 kg/m2 25.1 k g/m2 [facility] ([facility]) Body weight 170.25 [lb_av] 170.25 [lb_av] MEDEN T ([facility]) Body height 69 [in_i] 69 [in_i] [facility] 5'9" Diastolic blood pressure 60 mm[Hg] 60 mm[Hg] [facility] ([facility]) Systolic blood pressure 100 mm[Hg] 100 mm[Hg] [facility] ([facility]) Body weight 77.225 kg 77.225 kg [facility] ([facility]) Body mass index (BMI) [Ratio] 25.1 kg/m2 25.1 k g/m2 [facility] ([facility]) Body weight 170.25 [lb_av] 170.25 [lb_av] MEDEN T ([facility]) Body height 69 [in_i] 69 [in_i] [facility] ([facility]) 5'9" Diastolic blood pressure 73 mm[Hg] 73 mm[Hg] [facility] ([facility]) Systolic blood pressure 128 mm[Hg] 128 mm[Hg] [facility] ([facility]) Diastolic blood pressure 78 mm[Hg] 78 mm[Hg] eCW1 ([facility]) Systolic blood pressure 145 mm[Hg] 145 mm[Hg] e CW1 ([facility]) Body temperature 97.8 [degF] 97.8 [degF] eCW1 ( [facility]) Respiratory rate 17 /min 17 /min eCW1 ([facility]) Heart rate 87 /min 87 /min eCW1 ([facility]) Body mass index (BMI) [Ratio] 24.81 kg/m2 24.81 kg/m2 eCW1 ([facility]) Body height 69 [in_i] 69 [in_i] eCW1 ([facility]) Body weight 168 [lb_av] 168 [lb_av] eCW1 ([facility]) Body weight 74.844 kg 74.844 kg [facility] ([facility]) Body mass index (BMI) [Ratio] 24.4 kg/m2 24.4 k g/m2 [facility] ([facility]) Body weight 165.00 [lb_av] 165.00 [lb_av] [facility] Body height 69 [in_i] 69 [in_i] [facility] ([facility]) 5'9" Diastolic blood pressure 80 mm[Hg] 80 mm[Hg] [facility] ([facility]) Systolic blood pressure 165 mm[Hg] 165 mm[Hg] [facility] Diastolic blood pressure 68 mm[Hg] 68 mm[Hg] eCW1 ([facility]) Systolic blood pressure 111 mm[Hg] 111 mm[Hg] e CW1 ([facility]) Body temperature 98.0 [degF] 98.0 [degF] W1 ( [facility]) Respiratory rate 18 /min 18 /min eCW1 ([facility]) Heart rate 89 /min 89 /min eCW1 ([facility]) Body mass index (BMI) [Ratio] 24.81 kg/m2 24.81 kg/m2 eCW1 ([facility]) Body height 69 [in_us] 69 [in_us] eCW1 ([facility]) Body weight Measured 168 [lb_av] 168 [lb_av] eC W1 ([facility]) Diastolic blood pressure 82 mm[Hg] 82 mm[Hg] eCW1 ([facility]) Systolic blood pressure 132 mm[Hg] 132 mm[Hg] e CW1 ([facility]) Body mass index (BMI) [Ratio] 25.25 kg/m2 25.25 kg/m2 eCW1 ([facility]) Body height 69 [in_us] 69 [in_us] eCW1 ([facility]) Body weight Measured 171 [lb_av] 171 [lb_av] eC W1 ([facility]) Patient Treatment Plan of Care Planned Activity Planned Date Details Description Data Source (s) Misc. Devices - 03/11/2020 12:00:00 AM EST eCW1 ([facility]) Misc. Devices - 03/11/2020 12:00:00 AM EST eCW1 ([facility]) Misc. Devices - 03/11/2020 12:00:00 AM EST eCW1 ([facility]) Misc. Devices - 03/11/2020 12:00:00 AM EST eCW1 ([facility]) Misc. Devices - 03/11/2020 12:00:00 AM EST eCW1 ([facility]) Wheelchair - 02/24/2020 12:00:00 AM EST e CW1 ([facility]) Wheelchair - 02/24/2020 12:00:00 AM EST e CW1 ([facility]) Wheelchair - 02/24/2020 12:00:00 AM EST e CW1 ([facility]) Wheelchair - 02/24/2020 12:00:00 AM EST e CW1 ([facility]) Wheelchair - 02/24/2020 12:00:00 AM EST e CW1 ([facility]) Wheelchair - 02/24/2020 12:00:00 AM EST e CW1 ([facility]) Wheelchair - 02/24/2020 12:00:00 AM EST e CW1 ([facility]) Wheelchair - 02/24/2020 12:00:00 AM EST e CW1 ([facility]) Finasteride 5 MG Oral Tablet [Proscar] 09/05/2019 12:00:00 AM EDT eCW1 ([facility]) Finasteride 5 MG Oral Tablet [Proscar] 09/05/2019 12:00:00 AM EDT eCW1 ([facility]) Finasteride 5 MG Oral Tablet [Proscar] 09/05/2019 12:00:00 AM EDT eCW1 ([facility]) Finasteride 5 MG Oral Tablet [Proscar] 09/05/2019 12:00:00 AM EDT eCW1 ([facility]) Citalopram 40 MG Oral Tablet [Celexa] 04/17/2019 12:00:00 AM EST eCW1 ([facility]) Celexa 40 MG 04/17/2019 12:00:00 AM EST e CW1 ([facility])
[2020-05-02] MEDS ORDERED: D5W/0.45% SODIUM CHLORIDE 1,000 ML IV SCH (02:15)
[2020-05-02] MEDS ORDERED: ONDANSETRON 4MG/2ML VIAL IV ONE (02:15)
[2020-05-02] MEDS ORDERED: ACETAMINOPHEN TAB 650MG DOSE (2X325MG) PO ONE (02:15)
[2020-05-02] MEDS ORDERED: VANCOMYCIN HCL 1,000 MG, VIAL MATE ADAPTER 1 EACH in D5W 250 ML IV ONE (02:15)
[2020-05-02 02:18] LABS: BASO % 0.1 % (0.0-1.0); HEMATOCRIT 30.7 % (42.0-52.0); HEMOGLOBIN 10.2 g/dl (13.5-17.5); LYMPH # 0.9 10^3/uL (1.5-5.0); LYMPH % 11.5 % (24.0-44.0); MEAN CORPUSCULAR HEMOGLOBIN 29.5 pg (27.0-33.0); MEAN CORPUSCULAR HGB CONC 33.2 g/dl (32.0-36.5); MEAN CORPUSCULAR VOLUME 88.7 fl (80.0-96.0); MONO # 0.6 10^3/uL (0.0-0.8); MONO % 8.3 % (0.0-5.0); NEUTROPHILS # 6.1 10^3/uL (1.5-8.5); NEUTROPHILS % 79.6 % (36.0-66.0); PLATELET COUNT, AUTOMATED 227 10^3/uL (150-450); RED BLOOD COUNT 3.46 10^6/uL (4.30-6.10); WHITE BLOOD COUNT 7.6 10^3/uL (4.0-10.0)
[2020-05-02 02:39] LABS: ALBUMIN 3.1 GM/DL (3.2-5.2); ALT/SGPT 51 U/L (12-78); BILIRUBIN,DIRECT 0.2 MG/DL (0.0-0.2); BILIRUBIN,TOTAL 0.4 MG/DL (0.2-1.0); BLOOD UREA NITROGEN 20 MG/DL (7-18); CALCIUM LEVEL 8.4 MG/DL (8.8-10.2); CARBON DIOXIDE LEVEL 26 MEQ/L (21-32); CHLORIDE LEVEL 106 MEQ/L (98-107); CREATININE FOR GFR 1.31 MG/DL (0.70-1.30); GLOMERULAR FILTRATION RATE 59.4 (>49); GLUCOSE, FASTING 65 MG/DL (70-100); POTASSIUM SERUM 4.1 MEQ/L (3.5-5.1); SODIUM LEVEL 140 MEQ/L (136-145); TOTAL PROTEIN 6.6 GM/DL (6.4-8.2); TROPONIN I < 0.02 NG/ML (< 0.10)
[2020-05-02 03:27] LABS: RSV AMPLIFICATION NEGATIVE (NEGATIVE)
[2020-05-02] MEDS: HumaLOG INSULIN (NovoLOG) PER UNIT SC SCH ×3 (04:00→11:33)
--- NOTE | 2020-05-02 04:03 | REPVR ---
PROCEDURE INFORMATION: Exam: XR Chest, 1 View Exam date and time: 05/02/2020 2:56 AM Age: 59 years old Clinical indication: Cough; Additional info: chace Rosario TECHNIQUE: Imaging protocol: XR of the chest Views: 1 view. COMPARISON: CR Chest, 1 view 04/12/2020 9:17 PM FINDINGS: Lungs: Unremarkable. No consolidation. Pleural spaces: Unremarkable. No pleural effusion. No pneumothorax. Heart/Mediastinum: Unremarkable. No cardiomegaly. Bones/joints: Unremarkable. IMPRESSION: No acute findings. Electronically signed by: Meme Shetty On 05/02/2020 04:03:45 AM
--- NOTE | 2020-05-02 04:03 | REPVR ---
PROCEDURE INFORMATION: Exam: XR Right Tibia and Fibula Exam date and time: 05/02/2020 2:57 AM Age: 59 years old Clinical indication: Pain; Lower leg; Right; Prior surgery; Surgery date: 1-6 months; Surgery type: Amputation; Additional info: chace Rosario TECHNIQUE: Imaging protocol: XR Right tibia and fibula. Views: 2 views. COMPARISON: CR Knee, complete RIGHT 04/12/2020 9:17:45 PM FINDINGS: Bones/joints: There is again evidence of a below-knee amputation. The osteotomy margins are sharp. No knee joint effusion is identified. Soft tissues: No soft tissue gas is identified. Vasculature: The visualized vasculature demonstrates marked atherosclerotic disease. IMPRESSION: Unremarkable appearance of the amputation stump and the. Electronically signed by: Meme Shetty On 05/02/2020 04:03:03 AM
[2020-05-02] MEDS ORDERED: DOK100TA2 PO (04:40)
[2020-05-02] MEDS ORDERED: ACETAMINOPHEN TAB 650MG DOSE (2X325MG) PO PRN (04:45)
[2020-05-02] MEDS ORDERED: MAALOX 30 ML SUSP *UDC PO PRN (04:45)
[2020-05-02] MEDS ORDERED: MOM 30ML SUSPENSION UDC PO PRN (04:45)
[2020-05-02] MEDS ORDERED: TRAM50TA2 PO (04:47)
--- NOTE | 2020-05-02 04:51 | HPEPDOC ---
[facility] Medical History & Physical Date of Admission May 02, 2020 Date of Service: May 02, 2020 Attending Physician: RITU OTERO MD History and Physical TIME OF SERVICE: 455am CHIEF COMPLAINT: n/v HISTORY OF PRESENT ILLNESS: This 59 yr old M, who was diagnosed with COVID 19 on Apr 29, called EMS to his house because he had n/v; at the time of their evaluation his serum glucose 39 which he attributes to not eating much yesterday. He denied having f/c/ or pain but thinks that his right stump might be infected. REVIEW OF SYSTEMS: 12-point review of systems negative except as listed in HPI PAST MEDICAL/ SURGICAL HISTORY: Type 1 DM, insulin pump brain tumor temporal arteritis adrenal insufficiency peripheral vascular disease Bilateral BKA. 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 HOME MEDICATIONS: Please see below. PHYSICAL EXAMINATION: exam limited by poor patient cooperation Vital Signs Date Time Temp Pulse Resp B/P (MAP) Pulse Ox O2 Delivery O2 Flow Rate FiO2 05/02/20 01:37 102.1 113 18 131/71 Room Air 05/02/20 02:31 88 GENERAL APPEARANCE: slim build / NAD HEENT: unable to assess bc pt covered his whole body with a bed sheet and would only allow me to uncover his chest and legs CARDIOVASCULAR: RRR/NMRG LUNGS: CTAB ABDOMEN: flat MUSCULOSKELETAL: ALFONSO x 4 including bilateral stumps INTEGUMENT: skin at left stump is clean dry and intact/ right stump has sutures, skin + rubor, and calor NEUROLOGICAL: speech not dysarthric PSYCHIATRIC: A&O LABORATORY DATA: 05/02/20 02:06 05/02/20 02:06: Immature Granulocyte % (Auto) 0.5, Neutrophils (%) (Auto) 79.6H, Lymphocytes (%) (Auto) 11.5L, Monocytes (%) (Auto) 8.3H, Eosinophils (%) (Auto) 0.0, Basophils (%) (Auto) 0.1, Neutrophils # (Auto) 6.1, Lymphocytes # (Auto) 0.9L, Monocytes # (Auto) 0.6, Eosinophils # (Auto) 0.0, Basophils # (Auto) 0.0, Nucleated Red Blood Cells % (auto) 0.0, Anion Gap 8, Glomerular Filtration Rate 59.4, Lactic Acid Level 2.2*H, Calcium Level 8.4L, Total Bilirubin 0.4, Direct Bilirubin 0.2, Aspartate Amino Transf (AST/SGOT) 45H, Alanine Aminotransferase (ALT/SGPT) 51, Alkaline Phosphatase 117, Troponin I < 0.02, Total Protein 6.6, Albumin 3.1L, Albumin/Globulin Ratio 0.9, Coronavirus (COVID-19)(PCR) POSITIVEA, Influenza Type A (RT-PCR) NEGATIVE, Influenza Type B (RT-PCR) NEGATIVE, Respiratory Syncytial Virus (PCR) NEGATIVE 05/02/20 03:32: Bedside Glucose (Misc Panel) 131H IMAGING: Xray tib /fib IMPRESSION: Unremarkable appearance of the amputation stump and the. Chest xray IMPRESSION: No acute findings. MICROBIOLOGY: blood cx pending / COVID + ASSESSMENT: is a 59 yr old w a hx of DM1& bilateral BKAs who is admitted for m anagement of sepsis 2/2 right stump cellulitis and adrenal crisis. PLAN: 1. Sepsis 2/2 cellulitis of R stump Lactic acid was elevated Plan: admit to PCU / f/u blood cultures / c/w vancomycin & add cefazolin / day time team may consider surgical consult as this is the second episode this month has resolved 2. Hypotension, Hypoglycemia & N/V 2/2 Adrenal Crisis Likely triggered by infection Plan: hydrocortisone 100mg IV, then c/w hydrocortisone 200mg IV daily /hold home PO prednisone / will ask RN to give 1L bolus of NS then c/w D5NS @ 150ml/H there after /Zofran 3. DM w Neuropathy The patient has an insulin pump which he disconnected when he became hypoglycemic Plan: diabetic diet / f/u accuchecks Q4H / hypoglycemia protocol / sliding scale insulin / f/u A1C /will ask nursing staff to work with patient to resume insulin pump once sugars have normalized / Gabapentin 4. Chronic Anemia Plan; f/u iron panel and stool occult/ hold PO iron until infection 5. Peripheral vascular disease Plan: ASA/plavix 6. Hypomagnesemia Plan: Mag sulfate 8. Glaucoma Plan; Bimatoprost, Brimonidine 9. BPH/hx urinary retention Plan: Finasteride / /hold tamsulosin until BP has improved DVT px w SCDs Dispo: home after at least 2 midnights stay Home Medications Scheduled Aspirin (Aspirin EC) 81 Mg Tablet.dr, 81 MG PO DAILY Atorvastatin Calcium (Atorvastatin Calcium) 40 Mg Tablet, 40 MG PO DAILY Bimatoprost (Lumigan) 0.01% 2.5ML Drops, 1 DROP OS QHS Brimonidine Tartrate (Alphagan P) 0.1% 5ML Drops, 1 DROP OS BID Citalopram Hydrobromide (Citalopram HBr) 40 Mg Tablet, 40 MG PO DAILY Clopidogrel Bisulfate (Plavix) 75 Mg Tablet, 75 MG PO DAILY Docusate Sodium (Dok) 100 Mg Tablet, 100 MG PO BID Ferrous Sulfate (Ferrous Sulfate) 325 Mg Tab, 325 MG PO QWEEK SUNDAY Finasteride (Finasteride) 5 Mg Tablet, 5 MG PO DAILY Gabapentin (Gabapentin) 300 Mg Capsule, 300 MG PO BID Insulin Human Lispro (Novolog) 100 Unit/1 Ml Vial, 1 DOSE SC ASDIRECTED UP TO 100 UNITS DAILY CONTINUOUS THROUGH INSULIN PUMP Multivitamins (Thera M Plus Tablet) 1 Each Tablet, 1 TAB PO DAILY Pantoprazole Sodium (Pantoprazole Sodium) 40 Mg Tablet.dr, 40 MG PO BID Prednisone (Prednisone) 1 Mg Tablet, 3 MG PO DAILY TAKES WITH 5MG FOR 8MG TOTAL Prednisone (Prednisone) 5 Mg Tablet, 5 MG PO DAILY TAKES WITH 3MG FOR 8MG TOTAL Psyllium Husk (Fiber) 0.52 Gm Capsule, 0.52 GM PO DAILY Pyridostigmine [place] (Pyridostigmine [place]) 60 Mg Tablet, 60 MG PO DAILY Tamsulosin HCl (Flomax) 0.4 Mg Capsule, 0.4 MG PO QHS Scheduled PRN Glucagon,Human Recombinant (Glucagon Emergency Kit) 1 Mg Vial, 1 MG IM ASDIRECTED PRN for LOW BLOOD SUGAR Tramadol HCl (Tramadol HCl) 50 Mg Tablet, 50 MG PO Q6H PRN for MODERATE PAIN (PS 5-7) Allergies Coded Allergies: No Known Allergies (Unverified , 03/01/20) A-FIB/CHADSVASC A-FIB History Current/History of A-Fib/PAF?: No Current PO Anticoag Therapy: No RITU OTERO MD May 02, 2020 04:51
[2020-05-02] MEDS ORDERED: GLUCAGON INJ 1MG VIAL SC PRN (05:00)
[2020-05-02] MEDS ORDERED: DEXTROSE 50% 50 ML SYRINGE IV PRN (05:00)
[2020-05-02] MEDS ORDERED: GLUCOSE 4GM CHEW TABLET PO PRN (05:00)
[2020-05-02 05:10] LABS: INR 1.06
[2020-05-02 05:11] LABS: PARTIAL THROMBOPLASTIN TIME 31.7 SECONDS (24.2-38.5)
[2020-05-02 05:14] LABS: D-DIMER QUANT 2514.83 ng/ml (<500)
[2020-05-02 05:18] LABS: C REACTIVE PROTEIN QUANTITATIV 7.02 MG/DL (0.00-0.30); CPK CREATINE PHOSPHOKINASE 133 U/L (39-308); FERRITIN 249 NG/ML (26-388); IRON (FE) 18 UG/DL (65-175); LDH LACTATE DEHYDROGENASE 233 U/L (87-241); MAGNESIUM LEVEL 1.5 MG/DL (1.8-2.4); PERCENT SATURATION 7.8 % (19.7-50.0); TOTAL IRON BINDING CAPACITY 231 UG/DL (250-450)
[2020-05-02] MEDS ORDERED: traMADol 50 MG TAB PO PRN (06:00)
[2020-05-02] MEDS ORDERED: ceFAZolin SOD 1 GM in D5W MINI-BAG PLUS 50 ML IV SCH (06:00)
[2020-05-02] MEDS ORDERED: GLUCAGON INJ 1MG VIAL IM PRN (06:00)
--- OUTSIDE RECORDS SUMMARY | 2020-05-02 06:05 | CCD ---
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 Role Phone Hanna Boss MD Unavailable [...] Unavailable Michelle SARABIA MD Unavailable Unavailable Michelle SARABAI MD Unavailable Unavailable Michelle SARABIA MD Unavailable [...] Unavailable Christopher CAPPS MD Unavailable Unavailable Christopher ACPPS MD Unavailable Unavailable Christopher CAPPS MD Unavailable Unavailable Christopher CAPSP MD Unavailable Unavailable Christopher CAPPS MD Unavailable [...] Unavailable Shelby Kuhn MD Unavailable Unavailable Shelby uKhn MD Unavailable Unavailable Shelby Kuhn MD Unavailable [...] is protected by Article 27-F of the [facility] Public Health law. If you continue you may have access to information: Regarding HIV / AIDS; Provided by facilities licensed or operated by the [facility] Office of Mental Health; or Provided by the [facility] Office for People With Developmental Disabilities. If such information is present, then the following [facility] mandated warning applies: This information [...] law may result in a fine or skilled nursing sentence or both. A general authorization for the release of medical or other information is NOT sufficient authorization for further disc losure. Family History Family Member Name Family Member Gender Family Member Status Date o f Status Description Data Source(s) Unknown Unknown Problem MEDENT ([facility]) father Encounters Encounter Providers Location Date Indications Data Source(s ) [place] [address] [facility] [facility] [facility] [address] [place] [address] 04/29/2020 12:00:00 AM EST eCW1 ([facility]) [place] [address] [place] [address] 04/28/2020 12:00:00 AM EST eCW1 ([facility]) Unknown [address] [facility] [place] [address] 04/26/2020 12:00:00 AM EST eCW1 [facility] [place] [address] [facility] [place] [address] 04/23/2020 12:00:00 AM EST [facility]CW1 [facility] [place] [address] [facility] [place] [address] 04/22/2020 12:00:00 AM EST eCW1 ([facility]) [place] [address] [facility] [place] [address] 04/21/2020 12:00:00 AM EST eCW1 ([facility]) Outpatient [address] [facility] [place] [address] 04/06/2020 12:00:00 AM EST eCW1 ([facility]) Office Visit Attender: Florencia Mcnair/Анна/Indra/Zeeshan mcdowell 04/05/2020 08:15:00 AM EST MEDENT ([facility]) [place] [address] [facility] [place] [address] 03/31/2020 12:00:00 AM EST eCW1 ([facility]) [place] [address] [facility] [place] [address] 03/31/2020 12:00:00 AM EST eCW1 ([facility]) [place] [address] [facility] [place] [address] 03/29/2020 12:00:00 AM EST eCW1 ([facility]) [place] [address] [facility] [place] [address] 03/24/2020 12:00:00 AM EST eCW1 ([facility]) Unknown [address] [facility] [place] [address] 03/10/2020 12:00:00 AM EST eCW1 ([facility]) Outpatient Attender: Alex Kuhn MD CPSCAORT-CPSCAEND 03/02 02:32:00 PM EST - 03/02/2020 02:33:00 PM EST E10.65 [facility] E10.65 Patient discharged. Unknown [address] [facility] [address] 03/01/2020 12:00:00 AM EST eCW1 [facility]) Outpatient Attender: Kathy Mcnair/Анна/Indra/ Talon 02/23/2020 12:30:00 PM EST MEDENT ([facility]) ([id number]) For Template Wright [address] [place] [address] 02/23/2020 12:00:00 AM EST eCW1 (Critical access hospital) Unknown [address] [place] [phone] 02/20/2020 12:00:00 AM EST eCW1 ([facility]) Office Visit, Est Pt., Level [address] [place] [phone] 02/19/2020 12:00:00 AM EST eCW1 ([facility]) Unknown [address] [facility] [address] 02/19/2020 12:00:00 AM EST eCW1 ([facility]) Office Visit Attender: MOOSE CHAPA [facility] Office 01/31 12:00:00 PM EST MEDENT ([facility] Unknown [address] [facility] [address] 02/18/2020 12:00:00 AM EST eCW1 ([facility]) Unknown [address] [facility] [address] 02/10/2020 12:00:00 AM EST eCW1 ([facility]) Outpatient [address] [place] [phone] 02/09/2020 12:00:00 AM EST eCW1 ([facility]) Unknown [address] [place] [phone] 02/04/2020 12:00:00 AM EST eCW1 ([facility]) Office Visit Attender: MOOSE CHAPA [facility] Office 05/2019 01:45:00 PM EST MEDENT ([facility] Unknown [address] [facility], [facility] [address] 01/26/2020 12:00:00 AM EDT eCW1 ([facility]) Outpatient Attender: MOOSE CHAPA [facility] Office 01/01 02:30:00 PM EDT MEDENT ([facility] Outpatient Attender: Florencia Mcnair/Анна/Indra/R eindl 01/20/2020 11:30:00 AM EDT MEDENT ([facility]) Outpatient [address] [facility] [address] 01/19/2020 12:00:00 AM EDT eCW1 ([facility]) ([id number]) For [facility] [address] [place] [address] 01/09/2020 12:00:00 AM EDT eCW1 (Critical access hospital) Unknown [address] [facility], [facility] [address] 01/01/2020 12:00:00 AM EDT eCW1 ([facility]) Unknown [address] [facility] [place] [address] 12/30/2019 12:00:00 AM EDT eCW1 ([facility]) Outpatient Attender: Florencia Mcnair/Анна/Indra/R eindl 12/17/2019 09:00:00 AM EDT MEDENT ([facility]) Outpatient Attender: Alex Kuhn MD CPSCAORT-CPSCAEND 11/30 02:51:00 PM EDT - 12/01/2019 02:52:00 PM EDT E10.65 [facility] E10.65 Patient discharged. Outpatient Attender: DILSHAD Mcnair/Vernon/Ang el/Reindl 11/05/2019 11:30:00 AM EDT MEDENT ([facility]) Outpatient Attender: RAISA Mcnair/Vernon/Indra/ Reindl 11/04/2019 11:20:00 AM EDT MEDENT ([facility]) Outpatient Attender: Florencia Dumont RPA Xu/Vernon/Indra/R eindl 10/16/2019 10:00:00 AM EDT MEDENT ([facility]) [place] [address] [facility] [place] [address] 10/16/2019 12:00:00 AM EDT eCW1 ([facility]) Outpatient Attender: RAISA Mcnair/Vernon/Indra/ Reindl 10/07/2019 11:20:00 AM EDT MEDENT ([facility]) Outpatient Attender: Florencia Dumont RPA Xu/Vernon/Indra/R eindl 09/25/2019 01:30:00 PM EDT MEDENT ([facility]) Outpatient Attender: Florencia Dumont RPA Xu/Vernon/Indra/R eindl 09/24/2019 10:00:00 AM EDT MEDENT ([facility]) Outpatient [address] [facility] [place] [address] 09/18/2019 12:00:00 AM EDT eCW1 ([facility]) Unknown [address] [facility] [place] [address] 09/12/2019 12:00:00 AM EDT eCW1 ([facility]) Outpatient Attender: RAISA Mcnair/Vernon/Indra/ Reindl 09/09/2019 11:35:00 AM EDT MEDENT ([facility]) [place] [address] [facility] [place] [address] 09/05/2019 12:00:00 AM EDT eCW1 ([facility]) [place] [address] [facility] [place] [address] 09/03/2019 12:00:00 AM EDT eCW1 ([facility]) Outpatient 08/28/2019 09:03:00 AM EDT [facility] Unknown [address] [facility] [place] [address] 08/26/2019 12:00:00 AM EDT eCW1 ([facility]) Outpatient Attender: Alex Kuhn MD CPSCAORT-CPSCAEND 08/19 02:44:00 PM EDT - 08/20/2019 02:45:00 PM EDT [facility] Patient discharged. [facility] [address] [facility] [place] [address] 08/20/2019 12:00:00 AM EDT eCW1 ([facility]) [facility] [address] [facility] [place] [address] 08/19/2019 12:00:00 AM EDT eCW1 ([facility]) [facility] [address] [facility] [place] [address] 08/19/2019 12:00:00 AM EDT eCW1 ([facility]) Outpatient 08/13/2019 02:22:00 PM EDT [facility] [address] [facility] [place] [address] 08/12/2019 12:00:00 AM EDT eCW1 [facility] [address] [facility] [place] [address] 08/07/2019 12:00:00 AM EDT eCW1 ([facility]) [facility] [address] [facility] [address] 08/05/2019 12:00:00 AM EDT eCW1 ([facility]) [facility] [address] [facility] [place] [address] 08/04/2019 12:00:00 AM EDT eCW1 ([facility]) [facility] [place] [address] [place] [address] 06/25/2019 12:00:00 AM EDT eCW1 (Critical access hospital) [facility] [address] [facility] [address] 06/19/2019 12:00:00 AM EDT eCW1 ([facility]) [facility] [address] [place] [phone] 06/18/2019 12:00:00 AM EDT eCW1 ([facility]) [facility] [address] [place] [address] 06/06/2019 12:00:00 AM EST eCW1 ([facility]) [facility] [address] [facility] [place] [address] 04/30/2019 12:00:00 AM EST eCW1 ([facility]) Outpatient Attender: Alex Kuhn MD CPSCAORT-CPSCAEND 04/24 03:04:00 PM EST - 04/24/2019 03:05:00 PM EST E10.65 [facility] E10.65 Patient discharged. [facility] [address] [facility] [place] [address] 04/22/2019 12:00:00 AM EST eCW1 ([facility]) [facility] [address] [facility] [place] [address] 04/15/2019 12:00:00 AM EST eCW1 ([facility]) [facility] [address] [facility] [place] [address] 04/07/2019 12:00:00 AM EST eCW1 ([facility]) Outpatient Attender: Alex Kuhn MD CPSCAORT-CPSCAEND 01/14 02:06:00 PM EDT - 01/14/2019 02:07:00 PM EDT E10.65 [facility] E10.65 Patient discharged. Medications Medication Brand Name Start Date Product Form Dose Route Admi nistrative Instructions Pharmacy Instructions Status Indications Reaction Description Data Source(s) Misc. Devices - UNK 03/11/2020 12:00:00 AM EST active Misc. Devices - eCW1 ([facility], [facility]) Misc. Devices - UNK 03/11/2020 12:00:00 AM EST active Misc. Devices - eCW1 ([facility], 1928–1983) Misc. Devices - UNK 03/11/2020 12:00:00 AM EST active Misc. Devices - eCW1 ([facility], 1928–1983) Misc. Devices - UNK 03/11/2020 12:00:00 AM EST active Misc. Devices - eCW1 ([facility], 1928–1983) Misc. Devices - UNK 03/11/2020 12:00:00 AM EST active Misc. Devices - eCW1 ([facility], 1928–1983) Misc. Devices - UNK 03/11/2020 12:00:00 AM EST active Misc. Devices - eCW1 ([facility], 1928–1983) Misc. Devices - UNK 03/11/2020 12:00:00 AM EST active Misc. Devices - eCW1 ([facility], 1928–1983) Misc. Devices - UNK 03/11/2020 12:00:00 AM EST active Misc. Devices - eCW1 ([facility], 1928–1983) Misc. Devices - UNK 03/11/2020 12:00:00 AM EST active Misc. Devices - eCW1 ([facility], 1928–1983) Misc. Devices - UNK 03/11/2020 12:00:00 AM EST active Misc. Devices - eCW1 ([facility], [facility]–1983) Misc. Devices - UNK 03/11/2020 12:00:00 AM EST active Misc. Devices - eCW1 ([facility], 1928–1983) Misc. Devices - UNK 03/11/2020 12:00:00 AM EST active Misc. Devices - eCW1 ([facility], [facility]–1983) Misc. Devices - UNK 03/11/2020 12:00:00 AM EST active Misc. Devices - eCW1 ([facility], [facility]–1983) Wheelchair - Wheelchair - 02/24/2020 12:00:00 AM EST active Wheelchair - eCW1 ([facility], [facility]) Wheelchair - Wheelchair - 02/24/2020 12:00:00 AM EST active Wheelchair - eCW1 ([facility], [facility]) Wheelchair - Wheelchair - 02/24/2020 12:00:00 AM EST active Wheelchair - eCW1 ([facility], [facility]–1983) Wheelchair - Wheelchair - 02/24/2020 12:00:00 AM EST active Wheelchair - eCW1 ([facility], [facility]) Wheelchair - Wheelchair - 02/24/2020 12:00:00 AM EST active Wheelchair - eCW1 ([facility], [facility]–1983) Wheelchair - Wheelchair - 02/24/2020 12:00:00 AM EST active Wheelchair - eCW1 ([facility], [facility]–1983) Wheelchair - Wheelchair - 02/24/2020 12:00:00 AM EST active Wheelchair - eCW1 ([facility], [facility]–1983) Wheelchair - Wheelchair - 02/24/2020 12:00:00 AM EST active Wheelchair - eCW1 ([facility], [facility]–1983) Wheelchair - Wheelchair - 02/24/2020 12:00:00 AM EST active Wheelchair - eCW1 ([facility], [facility]–1983) Wheelchair - Wheelchair - 02/24/2020 12:00:00 AM EST active Wheelchair - eCW1 ([facility], 1928–1983) Wheelchair - Wheelchair - 02/24/2020 12:00:00 AM EST active Wheelchair - eCW1 ([facility], [facility]–1983) Wheelchair - Wheelchair - 02/24/2020 12:00:00 AM EST active Wheelchair - eCW1 ([facility], [facility]–1983) Wheelchair - Wheelchair - 02/24/2020 12:00:00 AM EST active Wheelchair - eCW1 ([facility], [facility]–1983) Wheelchair - Wheelchair - 02/24/2020 12:00:00 AM EST active Wheelchair - eCW1 ([facility], 1928–1983) Wheelchair - Wheelchair - 02/24/2020 12:00:00 AM EST active Wheelchair - eCW1 ([facility], [facility]–1983) Wheelchair - Wheelchair - 02/24/2020 12:00:00 AM EST active Wheelchair - eCW1 ([facility], [facility]–1983) Cephalexin 500 MG Oral Capsule Cephalexin 02/02/2020 12:00:00 AM EST ORAL active MEDENT ([facility] tramadol hydrochloride 50 MG Oral Tablet Tramadol HCL 02/02/2020 12:00:00 AM EST active MEDENT ([facility] Sucralfate 100 MG/ML Oral Suspension Sucralfate 10/23/2019 12:00:00 A M EDT ORAL active MEDENT ([facility], ) pantoprazole 40 MG Delayed Release Oral Tablet Pantoprazole Sodium 10/07/2019 12:00:00 AM EDT active M EDENT ([facility], ) Finasteride 5 MG Oral Tablet [Proscar] Proscar 5 MG Proscar 5 MG 09/05/2019 12:00:00 AM EDT 1.0 {tablet} suspended Proscar 5 MG eCW1 ([facility], 1928–[facility]) Finasteride 5 MG Oral Tablet [Proscar] Proscar 5 MG Proscar 5 MG 09/05/2019 12:00:00 AM EDT 1.0 {tablet} active Pr cassidy 5 MG eCW1 ([facility], 1928–1983) Finasteride 5 MG Oral Tablet [Proscar] Proscar 5 MG Proscar 5 MG 09/05/2019 12:00:00 AM EDT 1.0 {tablet} suspended Proscar 5 MG eCW1 ([facility], 1928–1983) Finasteride 5 MG Oral Tablet [Proscar] Proscar 5 MG Proscar 5 MG 09/05/2019 12:00:00 AM EDT 1.0 {tablet} suspended Proscar 5 MG eCW1 ([facility], 1928–1983) Finasteride 5 MG Oral Tablet [Proscar] Proscar 5 MG Proscar 5 MG 09/05/2019 12:00:00 AM EDT 1.0 {tablet} suspended Proscar 5 MG eCW1 ([facility], [facility]–1983) Finasteride 5 MG Oral Tablet [Proscar] Proscar 5 MG Proscar 5 MG 09/05/2019 12:00:00 AM EDT 1.0 {tablet} active Pr cassidy 5 MG eCW1 ([facility], [facility]–1983) Finasteride 5 MG Oral Tablet [Proscar] Proscar 5 MG Proscar 5 MG 09/05/2019 12:00:00 AM EDT 1.0 {tablet} suspended Proscar 5 MG eCW1 ([facility], [facility]–1983) Finasteride 5 MG Oral Tablet [Proscar] Proscar 5 MG Proscar 5 MG 09/05/2019 12:00:00 AM EDT 1.0 {tablet} suspended Proscar 5 MG eCW1 ([facility], 1928–1983) Finasteride 5 MG Oral Tablet [Proscar] Proscar 5 MG Proscar 5 MG 09/05/2019 12:00:00 AM EDT 1.0 {tablet} active Pr cassidy 5 MG eCW1 ([facility], [facility]–1983) Finasteride 5 MG Oral Tablet [Proscar] Proscar 5 MG Proscar 5 MG 09/05/2019 12:00:00 AM EDT 1.0 {tablet} active Pr cassidy 5 MG eCW1 ([facility], [facility]–1983) Finasteride 5 MG Oral Tablet [Proscar] Proscar 5 MG Proscar 5 MG 09/05/2019 12:00:00 AM EDT 1.0 {tablet} active Pr cassidy 5 MG eCW1 ([facility], [facility]–1983) Finasteride 5 MG Oral Tablet [Proscar] Proscar 5 MG Proscar 5 MG 09/05/2019 12:00:00 AM EDT 1.0 {tablet} suspended Proscar 5 MG eCW1 ([facility], 1928–1983) Finasteride 5 MG Oral Tablet [Proscar] Proscar 5 MG Proscar 5 MG 09/05/2019 12:00:00 AM EDT 1.0 {tablet} suspended Proscar 5 MG eCW1 ([facility], 1928–1983) Finasteride 5 MG Oral Tablet [Proscar] Proscar 5 MG Proscar 5 MG 09/05/2019 12:00:00 AM EDT 1.0 {tablet} suspended Proscar 5 MG eCW1 ([facility], 1928–1983) Finasteride 5 MG Oral Tablet [Proscar] Proscar 5 MG Proscar 5 MG 09/05/2019 12:00:00 AM EDT 1.0 {tablet} suspended Proscar 5 MG eCW1 ([facility], 1928–1983) Finasteride 5 MG Oral Tablet [Proscar] Proscar 5 MG Proscar 5 MG 09/05/2019 12:00:00 AM EDT 1.0 {tablet} suspended Proscar 5 MG eCW1 ([facility], 1928–1983) Finasteride 5 MG Oral Tablet [Proscar] Proscar 5 MG Proscar 5 MG 09/05/2019 12:00:00 AM EDT 1.0 {tablet} active Pr cassidy 5 MG eCW1 ([facility], [facility]–1983) Finasteride 5 MG Oral Tablet [Proscar] Proscar 5 MG Proscar 5 MG 09/05/2019 12:00:00 AM EDT 1.0 {tablet} active Pr cassidy 5 MG eCW1 ([facility], [facility]) Finasteride 5 MG Oral Tablet [Proscar] Proscar 5 MG Proscar 5 MG 09/05/2019 12:00:00 AM EDT 1.0 {tablet} active Pr cassidy 5 MG eCW1 ([facility], 1928–1983) Finasteride 5 MG Oral Tablet [Proscar] Proscar 5 MG Proscar 5 MG 09/05/2019 12:00:00 AM EDT 1.0 {tablet} active Pr cassidy 5 MG eCW1 ([facility], 1928–[facility]) Finasteride 5 MG Oral Tablet [Proscar] Proscar 5 MG Proscar 5 MG 09/05/2019 12:00:00 AM EDT 1.0 {tablet} active Pr cassidy 5 MG eCW1 ([facility], 1928–1983) Finasteride 5 MG Oral Tablet [Proscar] Proscar 5 MG Proscar 5 MG 09/05/2019 12:00:00 AM EDT 1.0 {tablet} suspended Proscar 5 MG eCW1 ([facility], 1928–1983) Finasteride 5 MG Oral Tablet [Proscar] Proscar 5 MG Proscar 5 MG 09/05/2019 12:00:00 AM EDT 1.0 {tablet} suspended Proscar 5 MG eCW1 ([facility], 1928–1983) Finasteride 5 MG Oral Tablet [Proscar] Proscar 5 MG Proscar 5 MG 09/05/2019 12:00:00 AM EDT 1.0 {tablet} suspended Proscar 5 MG eCW1 ([facility], 1928–1983) Finasteride 5 MG Oral Tablet [Proscar] Proscar 5 MG Proscar 5 MG 09/05/2019 12:00:00 AM EDT 1.0 {tablet} active Pr cassidy 5 MG eCW1 ([facility], 1928–1983) Finasteride 5 MG Oral Tablet [Proscar] Proscar 5 MG Proscar 5 MG 09/05/2019 12:00:00 AM EDT 1.0 {tablet} active Pr cassidy 5 MG eCW1 ([facility], 1928–1983) Finasteride 5 MG Oral Tablet [Proscar] Proscar 5 MG Proscar 5 MG 09/05/2019 12:00:00 AM EDT 1.0 {tablet} active Pr cassidy 5 MG eCW1 ([facility], 1928–[facility]) Finasteride 5 MG Oral Tablet [Proscar] Proscar 5 MG Proscar 5 MG 09/05/2019 12:00:00 AM EDT 1.0 {tablet} active Pr cassidy 5 MG eCW1 ([facility], 1928–1983) Finasteride 5 MG Oral Tablet [Proscar] Proscar 5 MG Proscar 5 MG 09/05/2019 12:00:00 AM EDT 1.0 {tablet} suspended Proscar 5 MG eCW1 ([facility], 1928–[facility]) Finasteride 5 MG Oral Tablet [Proscar] Proscar 5 MG Proscar 5 MG 09/05/2019 12:00:00 AM EDT 1.0 {tablet} active Pr cassidy 5 MG eCW1 ([facility], 1928–1983) Finasteride 5 MG Oral Tablet [Proscar] Proscar 5 MG Proscar 5 MG 09/05/2019 12:00:00 AM EDT 1.0 {tablet} active Pr cassidy 5 MG eCW1 ([facility], 1928–1983) Finasteride 5 MG Oral Tablet [Proscar] Proscar 5 MG Proscar 5 MG 09/05/2019 12:00:00 AM EDT 1.0 {tablet} suspended Proscar 5 MG eCW1 ([facility], 1928–1983) Insulin, Aspart, Human 100 UNT/ML Inject able Solution [NovoLog] NovoLog 100 UNIT/ML NovoLog 100 UNIT/ML 08/06/2019 12:00:00 AM EDT active NovoLog 100 UNIT/ML eCW1 ([facility], 1928–1983) Prednisone 5 MG Oral Tablet PredniSONE 5 MG PredniSONE 5 MG 08/06/2019 12:00:00 AM EDT 1.0 {tablet} active PredniSONE 5 MG eCW1 ([facility], 1928–1983) latanoprost 0.05 MG/ML Ophthalmic Solution Latanoprost 0.005 % Latanoprost 0.005 % 08/06/2019 12:00:00 AM EDT 1.0 {drop_into_affected_eye_in_ the_evening} active Latanoprost 0.005 % eCW1 ([facility]) latanoprost 0.05 MG/ML Ophthalmic Solution Latanoprost 0.005 % Latanoprost 0.005 % 08/06/2019 12:00:00 AM EDT active 1 drop into affected eye in the evening eCW1 ([facility], 1928–1983) Insulin, Aspart, Human 100 UNT/ML Inject able Solution [NovoLog] NovoLog 100 UNIT/ML NovoLog 100 UNIT/ML 08/06/2019 12:00:00 AM EDT active NovoLog 100 UNIT/ML eCW1 ([facility], 1928–1983) Insulin, Aspart, Human 100 UNT/ML Inject able Solution [NovoLog] NovoLog 100 UNIT/ML NovoLog 100 UNIT/ML 08/06/2019 12:00:00 AM EDT active NovoLog 100 UNIT/ML eCW1 ([facility], 1928–1983) Sucralfate 1000 MG Oral Tablet Sucralfate 1 GM Sucralfate 1 GM 08/06/2019 12:00:00 AM EDT active 1 tablet on an empty stomach eCW1 ([facility], 1928–1983) Acetaminophen 500 MG Oral Tablet Acetaminophen 500 MG 2019 12:00:00 AM EDT 1.0 {tablet_as_needed} active A cetaminophen 500 MG eCW1 ([facility], 1928–[facility]) latanoprost 0.05 MG/ML Ophthalmic Solution Latanoprost 0.005 % Latanoprost 0.005 % 08/06/2019 12:00:00 AM EDT 1.0 {drop_into_affected_eye_in_ the_evening} active Latanoprost 0.005 % eCW1 ([facility]) Sucralfate 1000 MG Oral Tablet Sucralfate 1 GM Sucralfate 1 GM 08/06/2019 12:00:00 AM EDT 1.0 {tablet_on_an_empty_stomach} active Sucralfate 1 GM eCW1 ([facility], 1928–1983) Acetaminophen 500 MG Oral Tablet Acetaminophen 500 MG 2019 12:00:00 AM EDT 1.0 {tablet_as_needed} active A cetaminophen 500 MG eCW1 ([facility], 1928–1983) Acetaminophen 500 MG Oral Tablet Acetaminophen 500 MG 2019 12:00:00 AM EDT 1.0 {tablet_as_needed} active A cetaminophen 500 MG eCW1 ([facility], 1928–1983) Sucralfate 1000 MG Oral Tablet Sucralfate 1 GM Sucralfate 1 GM 08/06/2019 12:00:00 AM EDT 1.0 {tablet_on_an_empty_stomach} active Sucralfate 1 GM eCW1 ([facility], 1928–[facility]) pantoprazole 40 MG Delayed Release Oral Tablet [Proton ix] Protonix 40 MG Protonix 40 MG 08/06/2019 12:00:00 AM EDT 1.0 {tablet} suspended Protonix 40 MG eCW1 ([facility], 1928–1983) Prednisone 5 MG Oral Tablet PredniSONE 5 MG PredniSONE 5 MG 08/06/2019 12:00:00 AM EDT 1.0 {tablet} active PredniSONE 5 MG eCW1 ([facility], 1928–1983) Acetaminophen 500 MG Oral Tablet Acetaminophen 500 MG 2019 12:00:00 AM EDT 1.0 {tablet_as_needed} active A cetaminophen 500 MG eCW1 ([facility], 1928–1983) pantoprazole 40 MG Delayed Release Oral Tablet [Proton ix] Protonix 40 MG Protonix 40 MG 08/06/2019 12:00:00 AM EDT 1.0 {tablet} active Protonix 40 MG eCW1 ([facility] [facility] pantoprazole 40 MG Delayed Release Oral Tablet [Proton ix] Protonix 40 MG Protonix 40 MG 08/06/2019 12:00:00 AM EDT 1.0 {tablet} suspended Protonix 40 MG eCW1 (Formerly [facility], 1928–1983) latanoprost 0.05 MG/ML Ophthalmic Solution Latanoprost 0.005 % Latanoprost 0.005 % 08/06/2019 12:00:00 AM EDT 1.0 {drop_into_affected_eye_in_ the_evening} active Latanoprost 0.005 % eCW1 ([facility]) Insulin, Aspart, Human 100 UNT/ML Inject able Solution [NovoLog] NovoLog 100 UNIT/ML NovoLog 100 UNIT/ML 08/06/2019 12:00:00 AM EDT suspended NovoLog 100 UNIT/ML eCW1 (Formerly [facility], 1928–1983) latanoprost 0.05 MG/ML Ophthalmic Solution Latanoprost 0.005 % Latanoprost 0.005 % 08/06/2019 12:00:00 AM EDT 1.0 {drop_into_affected_eye_in_ the_evening} active Latanoprost 0.005 % eCW1 ([facility]) Insulin, Aspart, Human 100 UNT/ML Inject able Solution [NovoLog] NovoLog 100 UNIT/ML NovoLog 100 UNIT/ML 08/06/2019 12:00:00 AM EDT suspended NovoLog 100 UNIT/ML eCW1 (Formerly [facility], 1928–1983) pantoprazole 40 MG Delayed Release Oral Tablet [Proton ix] Protonix 40 MG Protonix 40 MG 08/06/2019 12:00:00 AM EDT 1.0 {tablet} active Protonix 40 MG eCW1 (Formerly [facility], 1928–1983) pantoprazole 40 MG Delayed Release Oral Tablet [Proton ix] Protonix 40 MG Protonix 40 MG 08/06/2019 12:00:00 AM EDT 1.0 {tablet} active Protonix 40 MG eCW1 (Formerly [facility], 1928–1983) Sucralfate 1000 MG Oral Tablet Sucralfate 1 GM Sucralfate 1 GM 08/06/2019 12:00:00 AM EDT 1.0 {tablet_on_an_empty_stomach} active Sucralfate 1 GM eCW1 (Formerly [facility], 1928–1983) pantoprazole 40 MG Delayed Release Oral Tablet [Proton ix] Protonix 40 MG Protonix 40 MG 08/06/2019 12:00:00 AM EDT 1.0 {tablet} active Protonix 40 MG eCW1 (Formerly [facility], 1928–1983) pantoprazole 40 MG Delayed Release Oral Tablet [Proton ix] Protonix 40 MG Protonix 40 MG 08/06/2019 12:00:00 AM EDT 1.0 {tablet} suspended Protonix 40 MG eCW1 (Formerly [facility], 1928–1983) latanoprost 0.05 MG/ML Ophthalmic Solution Latanoprost 0.005 % Latanoprost 0.005 % 08/06/2019 12:00:00 AM EDT 1.0 {drop_into_affected_eye_in_ the_evening} active Latanoprost 0.005 % eCW1 ([facility]) Insulin, Aspart, Human 100 UNT/ML Inject able Solution [NovoLog] NovoLog 100 UNIT/ML NovoLog 100 UNIT/ML 08/06/2019 12:00:00 AM EDT suspended NovoLog 100 UNIT/ML eCW1 (Formerly [facility], 1928–1983) latanoprost 0.05 MG/ML Ophthalmic Solution Latanoprost 0.005 % Latanoprost 0.005 % 08/06/2019 12:00:00 AM EDT 1.0 {drop_into_affected_eye_in_ the_evening} active Latanoprost 0.005 % eCW1 ([facility]) Sucralfate 1000 MG Oral Tablet Sucralfate 1 GM Sucralfate 1 GM 08/06/2019 12:00:00 AM EDT 1.0 {tablet_on_an_empty_stomach} active Sucralfate 1 GM eCW1 (Formerly [facility], 1928–1983) Sucralfate 1000 MG Oral Tablet Sucralfate 1 GM Sucralfate 1 GM 08/06/2019 12:00:00 AM EDT 1.0 {tablet_on_an_empty_stomach} active Sucralfate 1 GM eCW1 (Formerly [facility], 1928–1983) Prednisone 5 MG Oral Tablet PredniSONE 5 MG PredniSONE 5 MG 08/06/2019 12:00:00 AM EDT active 1 tablet eCW1 ([facility]) Acetaminophen 500 MG Oral Tablet Acetaminophen 500 MG 2019 12:00:00 AM EDT active 1 tablet as neede d eCW1 (Formerly [facility], 1928–1983) pantoprazole 40 MG Delayed Release Oral Tablet [Proton ix] Protonix 40 MG Protonix 40 MG 08/06/2019 12:00:00 AM EDT 1.0 {tablet} active Protonix 40 MG eCW1 (Formerly [facility], 1928–1983) Sucralfate 1000 MG Oral Tablet Sucralfate 1 GM Sucralfate 1 GM 08/06/2019 12:00:00 AM EDT 1.0 {tablet_on_an_empty_stomach} active Sucralfate 1 GM eCW1 (Formerly [facility], 1928–1983) Acetaminophen 500 MG Oral Tablet Acetaminophen 500 MG 2019 12:00:00 AM EDT 1.0 {tablet_as_needed} active A cetaminophen 500 MG eCW1 (Formerly [facility], 1928–1983) Acetaminophen 500 MG Oral Tablet Acetaminophen 500 MG 2019 12:00:00 AM EDT 1.0 {tablet_as_needed} active A cetaminophen 500 MG eCW1 (Formerly [facility], 1928–1983) latanoprost 0.05 MG/ML Ophthalmic Solution Latanoprost 0.005 % Latanoprost 0.005 % 08/06/2019 12:00:00 AM EDT 1.0 {drop_into_affected_eye_in_ the_evening} active Latanoprost 0.005 % eCW1 ([facility]) Sucralfate 1000 MG Oral Tablet Sucralfate 1 GM Sucralfate 1 GM 08/06/2019 12:00:00 AM EDT 1.0 {tablet_on_an_empty_stomach} active Sucralfate 1 GM eCW1 (Formerly [facility], 1928–1983) pantoprazole 40 MG Delayed Release Oral Tablet [Proton ix] Protonix 40 MG Protonix 40 MG 08/06/2019 12:00:00 AM EDT 1.0 {tablet} suspended Protonix 40 MG eCW1 (Formerly [facility], 1928–1983) Prednisone 5 MG Oral Tablet PredniSONE 5 MG PredniSONE 5 MG 08/06/2019 12:00:00 AM EDT 1.0 {tablet} active PredniSONE 5 MG eCW1 (Formerly [facility], 1928–1983) latanoprost 0.05 MG/ML Ophthalmic Solution Latanoprost 0.005 % Latanoprost 0.005 % 08/06/2019 12:00:00 AM EDT 1.0 {drop_into_affected_eye_in_ the_evening} active Latanoprost 0.005 % eCW1 ([facility]) latanoprost 0.05 MG/ML Ophthalmic Solution Latanoprost 0.005 % Latanoprost 0.005 % 08/06/2019 12:00:00 AM EDT 1.0 {drop_into_affected_eye_in_ the_evening} active Latanoprost 0.005 % eCW1 ([facility]) Acetaminophen 500 MG Oral Tablet Acetaminophen 500 MG 2019 12:00:00 AM EDT 1.0 {tablet_as_needed} active A cetaminophen 500 MG eCW1 (Formerly [facility], 1928–1983) Acetaminophen 500 MG Oral Tablet Acetaminophen 500 MG 2019 12:00:00 AM EDT 1.0 {tablet_as_needed} active A cetaminophen 500 MG eCW1 (Formerly [facility], 1928–1983) Prednisone 5 MG Oral Tablet PredniSONE 5 MG PredniSONE 5 MG 08/06/2019 12:00:00 AM EDT 1.0 {tablet} active PredniSONE 5 MG eCW1 (Formerly [facility], 1928–1983) latanoprost 0.05 MG/ML Ophthalmic Solution Latanoprost 0.005 % Latanoprost 0.005 % 08/06/2019 12:00:00 AM EDT 1.0 {drop_into_affected_eye_in_ the_evening} active Latanoprost 0.005 % eCW1 ([facility]) Sucralfate 1000 MG Oral Tablet Sucralfate 1 GM Sucralfate 1 GM 08/06/2019 12:00:00 AM EDT active 1 tablet on an empty stomach eCW1 (Formerly [facility], 1928–1983) latanoprost 0.05 MG/ML Ophthalmic Solution Latanoprost 0.005 % Latanoprost 0.005 % 08/06/2019 12:00:00 AM EDT 1.0 {drop_into_affected_eye_in_ the_evening} active Latanoprost 0.005 % eCW1 ([facility]) Prednisone 5 MG Oral Tablet PredniSONE 5 MG PredniSONE 5 MG 08/06/2019 12:00:00 AM EDT 1.0 {tablet} active PredniSONE 5 MG eCW1 (Formerly [facility], 1928–1983) pantoprazole 40 MG Delayed Release Oral Tablet [Proton ix] Protonix 40 MG Protonix 40 MG 08/06/2019 12:00:00 AM EDT 1.0 {tablet} suspended Protonix 40 MG eCW1 (Formerly [facility], 1928–1983) Prednisone 5 MG Oral Tablet PredniSONE 5 MG PredniSONE 5 MG 08/06/2019 12:00:00 AM EDT 1.0 {tablet} active PredniSONE 5 MG eCW1 (Formerly [facility], 1928–1983) Acetaminophen 500 MG Oral Tablet Acetaminophen 500 MG 2019 12:00:00 AM EDT 1.0 {tablet_as_needed} active A cetaminophen 500 MG eCW1 (Formerly [facility], 1928–1983) pantoprazole 40 MG Delayed Release Oral Tablet [Proton ix] Protonix 40 MG Protonix 40 MG 08/06/2019 12:00:00 AM EDT 1.0 {tablet} suspended Protonix 40 MG eCW1 (Formerly [facility], 1928–1983) pantoprazole 40 MG Delayed Release Oral Tablet [Proton ix] Protonix 40 MG Protonix 40 MG 08/06/2019 12:00:00 AM EDT 1.0 {tablet} active Protonix 40 MG eCW1 (Formerly [facility], 1928–1983) Sucralfate 1000 MG Oral Tablet Sucralfate 1 GM Sucralfate 1 GM 08/06/2019 12:00:00 AM EDT 1.0 {tablet_on_an_empty_stomach} active Sucralfate 1 GM eCW1 (Formerly [facility], 1928–1983) pantoprazole 40 MG Delayed Release Oral Tablet [Proton ix] Protonix 40 MG Protonix 40 MG 08/06/2019 12:00:00 AM EDT 1.0 {tablet} active Protonix 40 MG eCW1 (Formerly [facility], 1928–1983) latanoprost 0.05 MG/ML Ophthalmic Solution Latanoprost 0.005 % Latanoprost 0.005 % 08/06/2019 12:00:00 AM EDT 1.0 {drop_into_affected_eye_in_ the_evening} active Latanoprost 0.005 % eCW1 ([facility]) Sucralfate 1000 MG Oral Tablet Sucralfate 1 GM Sucralfate 1 GM 08/06/2019 12:00:00 AM EDT 1.0 {tablet_on_an_empty_stomach} active Sucralfate 1 GM eCW1 (Formerly [facility], 1928–1983) Insulin, Aspart, Human 100 UNT/ML Inject able Solution [NovoLog] NovoLog 100 UNIT/ML NovoLog 100 UNIT/ML 08/06/2019 12:00:00 AM EDT suspended NovoLog 100 UNIT/ML eCW1 (Formerly [facility], 1928–1983) Insulin, Aspart, Human 100 UNT/ML Inject able Solution [NovoLog] NovoLog 100 UNIT/ML NovoLog 100 UNIT/ML 08/06/2019 12:00:00 AM EDT active NovoLog 100 UNIT/ML eCW1 (Formerly [facility], 1928–1983) Prednisone 5 MG Oral Tablet PredniSONE 5 MG PredniSONE 5 MG 08/06/2019 12:00:00 AM EDT 1.0 {tablet} active PredniSONE 5 MG eCW1 (Formerly [facility], 1928–1983) Insulin, Aspart, Human 100 UNT/ML Inject able Solution [NovoLog] NovoLog 100 UNIT/ML NovoLog 100 UNIT/ML 08/06/2019 12:00:00 AM EDT active NovoLog 100 UNIT/ML eCW1 (Formerly [facility], 1928–1983) Prednisone 5 MG Oral Tablet PredniSONE 5 MG PredniSONE 5 MG 08/06/2019 12:00:00 AM EDT active 1 tablet eCW1 ([facility]) Acetaminophen 500 MG Oral Tablet Acetaminophen 500 MG 2019 12:00:00 AM EDT 1.0 {tablet_as_needed} active A cetaminophen 500 MG eCW1 (Formerly [facility], 1928–1983) Acetaminophen 500 MG Oral Tablet Acetaminophen 500 MG 2019 12:00:00 AM EDT 1.0 {tablet_as_needed} active A cetaminophen 500 MG eCW1 (Formerly [facility], 1928–1983) latanoprost 0.05 MG/ML Ophthalmic Solution Latanoprost 0.005 % Latanoprost 0.005 % 08/06/2019 12:00:00 AM EDT 1.0 {drop_into_affected_eye_in_ the_evening} active Latanoprost 0.005 % eCW1 ([facility]) latanoprost 0.05 MG/ML Ophthalmic Solution Latanoprost 0.005 % Latanoprost 0.005 % 08/06/2019 12:00:00 AM EDT 1.0 {drop_into_affected_eye_in_ the_evening} active Latanoprost 0.005 % eCW1 ([facility]) Insulin, Aspart, Human 100 UNT/ML Inject able Solution [NovoLog] NovoLog 100 UNIT/ML NovoLog 100 UNIT/ML 08/06/2019 12:00:00 AM EDT active NovoLog 100 UNIT/ML eCW1 (Formerly [facility], 1928–1983) Prednisone 5 MG Oral Tablet PredniSONE 5 MG PredniSONE 5 MG 08/06/2019 12:00:00 AM EDT 1.0 {tablet} active PredniSONE 5 MG eCW1 (Formerly [facility], 1928–1983) Prednisone 5 MG Oral Tablet PredniSONE 5 MG PredniSONE 5 MG 08/06/2019 12:00:00 AM EDT 1.0 {tablet} active PredniSONE 5 MG eCW1 (Formerly [facility], 1928–1983) Acetaminophen 500 MG Oral Tablet Acetaminophen 500 MG 2019 12:00:00 AM EDT 1.0 {tablet_as_needed} active A cetaminophen 500 MG eCW1 (Formerly [facility], 1928–1983) Prednisone 5 MG Oral Tablet PredniSONE 5 MG PredniSONE 5 MG 08/06/2019 12:00:00 AM EDT 1.0 {tablet} active PredniSONE 5 MG eCW1 (Formerly [facility], 1928–1983) pantoprazole 40 MG Delayed Release Oral Tablet [Proton ix] Protonix 40 MG Protonix 40 MG 08/06/2019 12:00:00 AM EDT 1.0 {tablet} suspended Protonix 40 MG eCW1 (Formerly [facility], 1928–1983) Sucralfate 1000 MG Oral Tablet Sucralfate 1 GM Sucralfate 1 GM 08/06/2019 12:00:00 AM EDT 1.0 {tablet_on_an_empty_stomach} active Sucralfate 1 GM eCW1 (Formerly [facility], 1928–1983) Sucralfate 1000 MG Oral Tablet Sucralfate 1 GM Sucralfate 1 GM 08/06/2019 12:00:00 AM EDT 1.0 {tablet_on_an_empty_stomach} active Sucralfate 1 GM eCW1 (Formerly [facility], 1928–1983) Acetaminophen 500 MG Oral Tablet Acetaminophen 500 MG 2019 12:00:00 AM EDT 1.0 {tablet_as_needed} active A cetaminophen 500 MG eCW1 (Formerly [facility], 1928–1983) Acetaminophen 500 MG Oral Tablet Acetaminophen 500 MG 2019 12:00:00 AM EDT 1.0 {tablet_as_needed} active A cetaminophen 500 MG eCW1 (Formerly [facility], 1928–1983) Prednisone 5 MG Oral Tablet PredniSONE 5 MG PredniSONE 5 MG 08/06/2019 12:00:00 AM EDT 1.0 {tablet} active PredniSONE 5 MG eCW1 (Formerly [facility], 1928–1983) latanoprost 0.05 MG/ML Ophthalmic Solution Latanoprost 0.005 % Latanoprost 0.005 % 08/06/2019 12:00:00 AM EDT 1.0 {drop_into_affected_eye_in_ the_evening} active Latanoprost 0.005 % eCW1 ([facility]) Acetaminophen 500 MG Oral Tablet Acetaminophen 500 MG 2019 12:00:00 AM EDT 1.0 {tablet_as_needed} active A cetaminophen 500 MG eCW1 (Formerly [facility], 1928–1983) pantoprazole 40 MG Delayed Release Oral Tablet [Proton ix] Protonix 40 MG Protonix 40 MG 08/06/2019 12:00:00 AM EDT 1.0 {tablet} active Protonix 40 MG eCW1 (Formerly [facility], 1928–1983) Insulin, Aspart, Human 100 UNT/ML Inject able Solution [NovoLog] NovoLog 100 UNIT/ML NovoLog 100 UNIT/ML 08/06/2019 12:00:00 AM EDT active NovoLog 100 UNIT/ML eCW1 (Formerly [facility], 1928–1983) Acetaminophen 500 MG Oral Tablet Acetaminophen 500 MG 2019 12:00:00 AM EDT 1.0 {tablet_as_needed} active A cetaminophen 500 MG eCW1 (Formerly [facility], 1928–1983) Prednisone 5 MG Oral Tablet PredniSONE 5 MG PredniSONE 5 MG 08/06/2019 12:00:00 AM EDT 1.0 {tablet} active PredniSONE 5 MG eCW1 (Formerly [facility], 1928–1983) pantoprazole 40 MG Delayed Release Oral Tablet [Proton ix] Protonix 40 MG Protonix 40 MG 08/06/2019 12:00:00 AM EDT 1.0 {tablet} active Protonix 40 MG eCW1 (Formerly [facility], 1928–1983) Insulin, Aspart, Human 100 UNT/ML Inject able Solution [NovoLog] NovoLog 100 UNIT/ML NovoLog 100 UNIT/ML 08/06/2019 12:00:00 AM EDT suspended NovoLog 100 UNIT/ML eCW1 (Formerly [facility], 1928–1983) latanoprost 0.05 MG/ML Ophthalmic Solution Latanoprost 0.005 % Latanoprost 0.005 % 08/06/2019 12:00:00 AM EDT 1.0 {drop_into_affected_eye_in_ the_evening} active Latanoprost 0.005 % eCW1 ([facility]) Acetaminophen 500 MG Oral Tablet Acetaminophen 500 MG 2019 12:00:00 AM EDT 1.0 {tablet_as_needed} active A cetaminophen 500 MG eCW1 (Formerly [facility], 1928–1983) Acetaminophen 500 MG Oral Tablet Acetaminophen 500 MG 2019 12:00:00 AM EDT 1.0 {tablet_as_needed} active A cetaminophen 500 MG eCW1 (Formerly [facility], 1928–1983) Prednisone 5 MG Oral Tablet PredniSONE 5 MG PredniSONE 5 MG 08/06/2019 12:00:00 AM EDT 1.0 {tablet} active PredniSONE 5 MG eCW1 (Formerly [facility], 1928–1983) Acetaminophen 500 MG Oral Tablet Acetaminophen 500 MG 2019 12:00:00 AM EDT 1.0 {tablet_as_needed} active A cetaminophen 500 MG eCW1 (Formerly [facility], 1928–1983) Acetaminophen 500 MG Oral Tablet Acetaminophen 500 MG 2019 12:00:00 AM EDT active 1 tablet as neede d eCW1 (Formerly [facility], 1928–1983) pantoprazole 40 MG Delayed Release Oral Tablet [Proton ix] Protonix 40 MG Protonix 40 MG 08/06/2019 12:00:00 AM EDT 1.0 {tablet} suspended Protonix 40 MG eCW1 (Formerly [facility], 1928–1983) Prednisone 5 MG Oral Tablet PredniSONE 5 MG PredniSONE 5 MG 08/06/2019 12:00:00 AM EDT 1.0 {tablet} active PredniSONE 5 MG eCW1 (Formerly [facility], 1928–1983) Insulin, Aspart, Human 100 UNT/ML Inject able Solution [NovoLog] NovoLog 100 UNIT/ML NovoLog 100 UNIT/ML 08/06/2019 12:00:00 AM EDT active NovoLog 100 UNIT/ML eCW1 (Formerly [facility], 1928–1983) latanoprost 0.05 MG/ML Ophthalmic Solution Latanoprost 0.005 % Latanoprost 0.005 % 08/06/2019 12:00:00 AM EDT active 1 drop into affected eye in the evening eCW1 (Formerly [facility], 1928–1983) Prednisone 5 MG Oral Tablet PredniSONE 5 MG PredniSONE 5 MG 08/06/2019 12:00:00 AM EDT 1.0 {tablet} active PredniSONE 5 MG eCW1 (Formerly [facility], 1928–1983) Sucralfate 1000 MG Oral Tablet Sucralfate 1 GM Sucralfate 1 GM 08/06/2019 12:00:00 AM EDT 1.0 {tablet_on_an_empty_stomach} active Sucralfate 1 GM eCW1 (Formerly [facility], 1928–1983) Acetaminophen 500 MG Oral Tablet Acetaminophen 500 MG 2019 12:00:00 AM EDT 1.0 {tablet_as_needed} active A cetaminophen 500 MG eCW1 (Formerly [facility], 1928–1983) Insulin, Aspart, Human 100 UNT/ML Inject able Solution [NovoLog] NovoLog 100 UNIT/ML NovoLog 100 UNIT/ML 08/06/2019 12:00:00 AM EDT active NovoLog 100 UNIT/ML eCW1 (Formerly [facility], 1928–1983) Insulin, Aspart, Human 100 UNT/ML Inject able Solution [NovoLog] NovoLog 100 UNIT/ML NovoLog 100 UNIT/ML 08/06/2019 12:00:00 AM EDT suspended NovoLog 100 UNIT/ML eCW1 (Formerly [facility], 1928–1983) pantoprazole 40 MG Delayed Release Oral Tablet [Proton ix] Protonix 40 MG Protonix 40 MG 08/06/2019 12:00:00 AM EDT active 1 tablet eCW1 (Formerly [facility], 1928–1983) Insulin, Aspart, Human 100 UNT/ML Inject able Solution [NovoLog] NovoLog 100 UNIT/ML NovoLog 100 UNIT/ML 08/06/2019 12:00:00 AM EDT suspended NovoLog 100 UNIT/ML eCW1 (Formerly [facility], 1928–1983) Prednisone 5 MG Oral Tablet PredniSONE 5 MG PredniSONE 5 MG 08/06/2019 12:00:00 AM EDT 1.0 {tablet} active PredniSONE 5 MG eCW1 (Formerly [facility], 1928–1983) Prednisone 5 MG Oral Tablet PredniSONE 5 MG PredniSONE 5 MG 08/06/2019 12:00:00 AM EDT 1.0 {tablet} active PredniSONE 5 MG eCW1 (Formerly [facility], 1928–1983) Sucralfate 1000 MG Oral Tablet Sucralfate 1 GM Sucralfate 1 GM 08/06/2019 12:00:00 AM EDT 1.0 {tablet_on_an_empty_stomach} active Sucralfate 1 GM eCW1 (Formerly [facility], 1928–1983) Prednisone 5 MG Oral Tablet PredniSONE 5 MG PredniSONE 5 MG 08/06/2019 12:00:00 AM EDT 1.0 {tablet} active PredniSONE 5 MG eCW1 (Formerly [facility], 1928–1983) Insulin, Aspart, Human 100 UNT/ML Inject able Solution [NovoLog] NovoLog 100 UNIT/ML NovoLog 100 UNIT/ML 08/06/2019 12:00:00 AM EDT active as directed eCW1 (Formerly [facility], 1928–1983) latanoprost 0.05 MG/ML Ophthalmic Solution Latanoprost 0.005 % Latanoprost 0.005 % 08/06/2019 12:00:00 AM EDT 1.0 {drop_into_affected_eye_in_ the_evening} active Latanoprost 0.005 % eCW1 ([facility]) Insulin, Aspart, Human 100 UNT/ML Inject able Solution [NovoLog] NovoLog 100 UNIT/ML NovoLog 100 UNIT/ML 08/06/2019 12:00:00 AM EDT suspended NovoLog 100 UNIT/ML eCW1 (Formerly [facility], 1928–1983) pantoprazole 40 MG Delayed Release Oral Tablet [Proton ix] Protonix 40 MG Protonix 40 MG 08/06/2019 12:00:00 AM EDT 1.0 {tablet} active Protonix 40 MG eCW1 (Formerly [facility], 1928–1983) Insulin, Aspart, Human 100 UNT/ML Inject able Solution [NovoLog] NovoLog 100 UNIT/ML NovoLog 100 UNIT/ML 08/06/2019 12:00:00 AM EDT suspended NovoLog 100 UNIT/ML eCW1 (Formerly [facility], 1928–1983) Acetaminophen 500 MG Oral Tablet Acetaminophen 500 MG 2019 12:00:00 AM EDT 1.0 {tablet_as_needed} active A cetaminophen 500 MG eCW1 (Formerly [facility], 1928–1983) pantoprazole 40 MG Delayed Release Oral Tablet [Proton ix] Protonix 40 MG Protonix 40 MG 08/06/2019 12:00:00 AM EDT 1.0 {tablet} suspended Protonix 40 MG eCW1 (Formerly [facility], 1928–1983) Insulin, Aspart, Human 100 UNT/ML Inject able Solution [NovoLog] NovoLog 100 UNIT/ML NovoLog 100 UNIT/ML 08/06/2019 12:00:00 AM EDT suspended NovoLog 100 UNIT/ML eCW1 (Formerly [facility], 1928–1983) Prednisone 5 MG Oral Tablet PredniSONE 5 MG PredniSONE 5 MG 08/06/2019 12:00:00 AM EDT 1.0 {tablet} active PredniSONE 5 MG eCW1 (Formerly [facility], 1928–1983) Prednisone 5 MG Oral Tablet PredniSONE 5 MG PredniSONE 5 MG 08/06/2019 12:00:00 AM EDT 1.0 {tablet} active PredniSONE 5 MG eCW1 (Formerly [facility], 1928–1983) pantoprazole 40 MG Delayed Release Oral Tablet [Proton ix] Protonix 40 MG Protonix 40 MG 08/06/2019 12:00:00 AM EDT 1.0 {tablet} suspended Protonix 40 MG eCW1 (Formerly [facility], 1928–1983) latanoprost 0.05 MG/ML Ophthalmic Solution Latanoprost 0.005 % Latanoprost 0.005 % 08/06/2019 12:00:00 AM EDT 1.0 {drop_into_affected_eye_in_ the_evening} active Latanoprost 0.005 % eCW1 ([facility]) Insulin, Aspart, Human 100 UNT/ML Inject able Solution [NovoLog] NovoLog 100 UNIT/ML NovoLog 100 UNIT/ML 08/06/2019 12:00:00 AM EDT suspended NovoLog 100 UNIT/ML eCW1 (Formerly [facility], 1928–1983) latanoprost 0.05 MG/ML Ophthalmic Solution Latanoprost 0.005 % Latanoprost 0.005 % 08/06/2019 12:00:00 AM EDT 1.0 {drop_into_affected_eye_in_ the_evening} active Latanoprost 0.005 % eCW1 ([facility]) Prednisone 5 MG Oral Tablet PredniSONE 5 MG PredniSONE 5 MG 08/06/2019 12:00:00 AM EDT 1.0 {tablet} active PredniSONE 5 MG eCW1 (Formerly [facility], 1928–1983) latanoprost 0.05 MG/ML Ophthalmic Solution Latanoprost 0.005 % Latanoprost 0.005 % 08/06/2019 12:00:00 AM EDT 1.0 {drop_into_affected_eye_in_ the_evening} active Latanoprost 0.005 % eCW1 ([facility]) latanoprost 0.05 MG/ML Ophthalmic Solution Latanoprost 0.005 % Latanoprost 0.005 % 08/06/2019 12:00:00 AM EDT 1.0 {drop_into_affected_eye_in_ the_evening} active Latanoprost 0.005 % eCW1 ([facility]) Acetaminophen 500 MG Oral Tablet Acetaminophen 500 MG 2019 12:00:00 AM EDT 1.0 {tablet_as_needed} active A cetaminophen 500 MG eCW1 (Formerly [facility], 1928–1983) Insulin, Aspart, Human 100 UNT/ML Inject able Solution [NovoLog] NovoLog 100 UNIT/ML NovoLog 100 UNIT/ML 08/06/2019 12:00:00 AM EDT suspended NovoLog 100 UNIT/ML eCW1 (Formerly [facility], 1928–1983) Sucralfate 1000 MG Oral Tablet Sucralfate 1 GM Sucralfate 1 GM 08/06/2019 12:00:00 AM EDT 1.0 {tablet_on_an_empty_stomach} active Sucralfate 1 GM eCW1 (Formerly [facility], 1928–1983) Sucralfate 1000 MG Oral Tablet Sucralfate 1 GM Sucralfate 1 GM 08/06/2019 12:00:00 AM EDT 1.0 {tablet_on_an_empty_stomach} active Sucralfate 1 GM eCW1 (Formerly [facility], 1928–1983) Acetaminophen 500 MG Oral Tablet Acetaminophen 500 MG 2019 12:00:00 AM EDT 1.0 {tablet_as_needed} active A cetaminophen 500 MG eCW1 (Formerly [facility], 1928–1983) latanoprost 0.05 MG/ML Ophthalmic Solution Latanoprost 0.005 % Latanoprost 0.005 % 08/06/2019 12:00:00 AM EDT 1.0 {drop_into_affected_eye_in_ the_evening} active Latanoprost 0.005 % eCW1 ([facility]) latanoprost 0.05 MG/ML Ophthalmic Solution Latanoprost 0.005 % Latanoprost 0.005 % 08/06/2019 12:00:00 AM EDT 1.0 {drop_into_affected_eye_in_ the_evening} active Latanoprost 0.005 % eCW1 ([facility]) Sucralfate 1000 MG Oral Tablet Sucralfate 1 GM Sucralfate 1 GM 08/06/2019 12:00:00 AM EDT 1.0 {tablet_on_an_empty_stomach} active Sucralfate 1 GM eCW1 (Formerly [facility], 1928–1983) Prednisone 5 MG Oral Tablet PredniSONE 5 MG PredniSONE 5 MG 08/06/2019 12:00:00 AM EDT 1.0 {tablet} active PredniSONE 5 MG eCW1 (Formerly [facility], 1928–1983) Insulin, Aspart, Human 100 UNT/ML Inject able Solution [NovoLog] NovoLog 100 UNIT/ML NovoLog 100 UNIT/ML 08/06/2019 12:00:00 AM EDT suspended NovoLog 100 UNIT/ML eCW1 (Formerly [facility], 1928–1983) pantoprazole 40 MG Delayed Release Oral Tablet [Proton ix] Protonix 40 MG Protonix 40 MG 08/06/2019 12:00:00 AM EDT 1.0 {tablet} suspended Protonix 40 MG eCW1 (Formerly [facility], 1928–1983) Sucralfate 1000 MG Oral Tablet Sucralfate 1 GM Sucralfate 1 GM 08/06/2019 12:00:00 AM EDT 1.0 {tablet_on_an_empty_stomach} active Sucralfate 1 GM eCW1 (Formerly [facility], 1928–1983) pantoprazole 40 MG Delayed Release Oral Tablet [Proton ix] Protonix 40 MG Protonix 40 MG 08/06/2019 12:00:00 AM EDT 1.0 {tablet} active Protonix 40 MG eCW1 (Formerly [facility], 1928–1983) Sucralfate 1000 MG Oral Tablet Sucralfate 1 GM Sucralfate 1 GM 08/06/2019 12:00:00 AM EDT 1.0 {tablet_on_an_empty_stomach} active Sucralfate 1 GM eCW1 (Formerly [facility], 1928–1983) Sucralfate 1000 MG Oral Tablet Sucralfate 1 GM Sucralfate 1 GM 08/06/2019 12:00:00 AM EDT 1.0 {tablet_on_an_empty_stomach} active Sucralfate 1 GM eCW1 (Formerly [facility], 1928–1983) Sucralfate 1000 MG Oral Tablet Sucralfate 1 GM Sucralfate 1 GM 08/06/2019 12:00:00 AM EDT 1.0 {tablet_on_an_empty_stomach} active Sucralfate 1 GM eCW1 (Formerly [facility], 1928–1983) Acetaminophen 500 MG Oral Tablet Acetaminophen 500 MG 2019 12:00:00 AM EDT 1.0 {tablet_as_needed} active A cetaminophen 500 MG eCW1 (Formerly [facility], 1928–1983) pantoprazole 40 MG Delayed Release Oral Tablet [Proton ix] Protonix 40 MG Protonix 40 MG 08/06/2019 12:00:00 AM EDT 1.0 {tablet} active Protonix 40 MG eCW1 (Formerly [facility], 1928–1983) Sucralfate 1000 MG Oral Tablet Sucralfate 1 GM Sucralfate 1 GM 08/06/2019 12:00:00 AM EDT 1.0 {tablet_on_an_empty_stomach} active Sucralfate 1 GM eCW1 (Formerly [facility], 1928–1983) Sucralfate 1000 MG Oral Tablet Sucralfate 1 GM Sucralfate 1 GM 08/06/2019 12:00:00 AM EDT 1.0 {tablet_on_an_empty_stomach} active Sucralfate 1 GM eCW1 (Formerly [facility], 1928–1983) Acetaminophen 500 MG Oral Tablet Acetaminophen 500 MG 2019 12:00:00 AM EDT 1.0 {tablet_as_needed} active A cetaminophen 500 MG eCW1 (Formerly [facility], 1928–1983) pantoprazole 40 MG Delayed Release Oral Tablet [Proton ix] Protonix 40 MG Protonix 40 MG 08/06/2019 12:00:00 AM EDT 1.0 {tablet} active Protonix 40 MG eCW1 (Formerly [facility], 1928–1983) Sucralfate 1000 MG Oral Tablet Sucralfate 1 GM Sucralfate 1 GM 08/06/2019 12:00:00 AM EDT 1.0 {tablet_on_an_empty_stomach} active Sucralfate 1 GM eCW1 (Formerly [facility], 1928–1983) pantoprazole 40 MG Delayed Release Oral Tablet [Proton ix] Protonix 40 MG Protonix 40 MG 08/06/2019 12:00:00 AM EDT 1.0 {tablet} suspended Protonix 40 MG eCW1 (Formerly [facility], 1928–1983) Insulin, Aspart, Human 100 UNT/ML Inject able Solution [NovoLog] NovoLog 100 UNIT/ML NovoLog 100 UNIT/ML 08/06/2019 12:00:00 AM EDT suspended NovoLog 100 UNIT/ML eCW1 (Formerly [facility], 1928–1983) latanoprost 0.05 MG/ML Ophthalmic Solution Latanoprost 0.005 % Latanoprost 0.005 % 08/06/2019 12:00:00 AM EDT 1.0 {drop_into_affected_eye_in_ the_evening} active Latanoprost 0.005 % eCW1 ([facility]) Insulin, Aspart, Human 100 UNT/ML Inject able Solution [NovoLog] NovoLog 100 UNIT/ML NovoLog 100 UNIT/ML 08/06/2019 12:00:00 AM EDT suspended NovoLog 100 UNIT/ML eCW1 (Formerly [facility], 1928–1983) Sucralfate 1000 MG Oral Tablet Sucralfate 1 GM Sucralfate 1 GM 08/06/2019 12:00:00 AM EDT 1.0 {tablet_on_an_empty_stomach} active Sucralfate 1 GM eCW1 (Formerly [facility], 1928–1983) Insulin, Aspart, Human 100 UNT/ML Inject able Solution [NovoLog] NovoLog 100 UNIT/ML NovoLog 100 UNIT/ML 08/06/2019 12:00:00 AM EDT active NovoLog 100 UNIT/ML eCW1 (Formerly [facility], 1928–1983) Sucralfate 1000 MG Oral Tablet Sucralfate 1 GM Sucralfate 1 GM 08/06/2019 12:00:00 AM EDT 1.0 {tablet_on_an_empty_stomach} active Sucralfate 1 GM eCW1 (Formerly [facility], 1928–1983) Prednisone 5 MG Oral Tablet PredniSONE 5 MG PredniSONE 5 MG 08/06/2019 12:00:00 AM EDT 1.0 {tablet} active PredniSONE 5 MG eCW1 (Formerly [facility], 1928–1983) pantoprazole 40 MG Delayed Release Oral Tablet [Proton ix] Protonix 40 MG Protonix 40 MG 08/06/2019 12:00:00 AM EDT 1.0 {tablet} suspended Protonix 40 MG eCW1 (Formerly [facility], 1928–1983) pantoprazole 40 MG Delayed Release Oral Tablet [Proton ix] Protonix 40 MG Protonix 40 MG 08/06/2019 12:00:00 AM EDT 1.0 {tablet} active Protonix 40 MG eCW1 (Formerly [facility], 1928–1983) Sucralfate 1000 MG Oral Tablet Sucralfate 1 GM Sucralfate 1 GM 08/06/2019 12:00:00 AM EDT 1.0 {tablet_on_an_empty_stomach} active Sucralfate 1 GM eCW1 (Formerly [facility], 1928–1983) Prednisone 5 MG Oral Tablet PredniSONE 5 MG PredniSONE 5 MG 08/06/2019 12:00:00 AM EDT 1.0 {tablet} active PredniSONE 5 MG eCW1 (Formerly [facility], 1928–1983) Prednisone 5 MG Oral Tablet PredniSONE 5 MG PredniSONE 5 MG 08/06/2019 12:00:00 AM EDT 1.0 {tablet} active PredniSONE 5 MG eCW1 (Formerly [facility], 1928–1983) Acetaminophen 500 MG Oral Tablet Acetaminophen 500 MG 2019 12:00:00 AM EDT 1.0 {tablet_as_needed} active A cetaminophen 500 MG eCW1 (Formerly [facility], 1928–1983) pantoprazole 40 MG Delayed Release Oral Tablet [Proton ix] Protonix 40 MG Protonix 40 MG 08/06/2019 12:00:00 AM EDT 1.0 {tablet} suspended Protonix 40 MG eCW1 (Formerly [facility], 1928–1983) Prednisone 5 MG Oral Tablet PredniSONE 5 MG PredniSONE 5 MG 08/06/2019 12:00:00 AM EDT 1.0 {tablet} active PredniSONE 5 MG eCW1 (Formerly [facility], 1928–1983) pantoprazole 40 MG Delayed Release Oral Tablet [Proton ix] Protonix 40 MG Protonix 40 MG 08/06/2019 12:00:00 AM EDT active 1 tablet eCW1 (Formerly [facility], 1928–1983) Sucralfate 1000 MG Oral Tablet Sucralfate 1 GM Sucralfate 1 GM 08/06/2019 12:00:00 AM EDT 1.0 {tablet_on_an_empty_stomach} active Sucralfate 1 GM eCW1 (Formerly [facility], 1928–1983) Acetaminophen 500 MG Oral Tablet Acetaminophen 500 MG 2019 12:00:00 AM EDT 1.0 {tablet_as_needed} active A cetaminophen 500 MG eCW1 (Formerly [facility], 1928–1983) latanoprost 0.05 MG/ML Ophthalmic Solution Latanoprost 0.005 % Latanoprost 0.005 % 08/06/2019 12:00:00 AM EDT 1.0 {drop_into_affected_eye_in_ the_evening} active Latanoprost 0.005 % eCW1 ([facility]) Prednisone 5 MG Oral Tablet PredniSONE 5 MG PredniSONE 5 MG 08/06/2019 12:00:00 AM EDT 1.0 {tablet} active PredniSONE 5 MG eCW1 (Formerly [facility], 1928–1983) latanoprost 0.05 MG/ML Ophthalmic Solution Latanoprost 0.005 % Latanoprost 0.005 % 08/06/2019 12:00:00 AM EDT 1.0 {drop_into_affected_eye_in_ the_evening} active Latanoprost 0.005 % eCW1 ([facility]) latanoprost 0.05 MG/ML Ophthalmic Solution Latanoprost 0.005 % Latanoprost 0.005 % 08/06/2019 12:00:00 AM EDT 1.0 {drop_into_affected_eye_in_ the_evening} active Latanoprost 0.005 % eCW1 ([facility]) pantoprazole 40 MG Delayed Release Oral Tablet [Proton ix] Protonix 40 MG Protonix 40 MG 08/06/2019 12:00:00 AM EDT 1.0 {tablet} suspended Protonix 40 MG eCW1 (Formerly [facility], 1928–1983) Insulin, Aspart, Human 100 UNT/ML Inject able Solution [NovoLog] NovoLog 100 UNIT/ML NovoLog 100 UNIT/ML 08/06/2019 12:00:00 AM EDT active NovoLog 100 UNIT/ML eCW1 (Formerly [facility], 1928–1983) Sucralfate 1000 MG Oral Tablet Sucralfate 1 GM Sucralfate 1 GM 08/06/2019 12:00:00 AM EDT 1.0 {tablet_on_an_empty_stomach} active Sucralfate 1 GM eCW1 (Formerly [facility], 1928–1983) latanoprost 0.05 MG/ML Ophthalmic Solution Latanoprost 0.005 % Latanoprost 0.005 % 08/06/2019 12:00:00 AM EDT 1.0 {drop_into_affected_eye_in_ the_evening} active Latanoprost 0.005 % eCW1 ([facility]) Acetaminophen 500 MG Oral Tablet Acetaminophen 500 MG 2019 12:00:00 AM EDT 1.0 {tablet_as_needed} active A cetaminophen 500 MG eCW1 (Formerly [facility], 1928–1983) Insulin, Aspart, Human 100 UNT/ML Inject able Solution [NovoLog] NovoLog 100 UNIT/ML NovoLog 100 UNIT/ML 08/06/2019 12:00:00 AM EDT suspended NovoLog 100 UNIT/ML eCW1 (Formerly [facility], 1928–1983) Acetaminophen 500 MG Oral Tablet Acetaminophen 500 MG 2019 12:00:00 AM EDT 1.0 {tablet_as_needed} active A cetaminophen 500 MG eCW1 (Formerly [facility], 1928–1983) Insulin, Aspart, Human 100 UNT/ML Inject able Solution [NovoLog] NovoLog 100 UNIT/ML NovoLog 100 UNIT/ML 08/06/2019 12:00:00 AM EDT suspended NovoLog 100 UNIT/ML eCW1 (Formerly [facility], 1928–1983) Acetaminophen 500 MG Oral Tablet Acetaminophen 500 MG 2019 12:00:00 AM EDT 1.0 {tablet_as_needed} active A cetaminophen 500 MG eCW1 (Formerly [facility], 1928–1983) Acetaminophen 500 MG Oral Tablet Acetaminophen 500 MG 2019 12:00:00 AM EDT 1.0 {tablet_as_needed} active A cetaminophen 500 MG eCW1 (Formerly [facility], 1928–1983) Prednisone 5 MG Oral Tablet PredniSONE 5 MG PredniSONE 5 MG 08/06/2019 12:00:00 AM EDT 1.0 {tablet} active PredniSONE 5 MG eCW1 (Formerly [facility], 1928–1983) Sucralfate 1000 MG Oral Tablet Sucralfate 1 GM Sucralfate 1 GM 08/06/2019 12:00:00 AM EDT 1.0 {tablet_on_an_empty_stomach} active Sucralfate 1 GM eCW1 (Formerly [facility], 1928–1983) Sucralfate 1000 MG Oral Tablet Sucralfate 1 GM Sucralfate 1 GM 08/06/2019 12:00:00 AM EDT 1.0 {tablet_on_an_empty_stomach} active Sucralfate 1 GM eCW1 (Formerly [facility], 1928–1983) Prednisone 5 MG Oral Tablet PredniSONE 5 MG PredniSONE 5 MG 08/06/2019 12:00:00 AM EDT 1.0 {tablet} active PredniSONE 5 MG eCW1 (Formerly [facility], 1928–1983) Insulin, Aspart, Human 100 UNT/ML Inject able Solution [NovoLog] NovoLog 100 UNIT/ML NovoLog 100 UNIT/ML 08/06/2019 12:00:00 AM EDT suspended NovoLog 100 UNIT/ML eCW1 (Formerly [facility], 1928–1983) Acetaminophen 500 MG Oral Tablet Acetaminophen 500 MG 2019 12:00:00 AM EDT 1.0 {tablet_as_needed} active A cetaminophen 500 MG eCW1 (Formerly [facility], 1928–1983) Prednisone 5 MG Oral Tablet PredniSONE 5 MG PredniSONE 5 MG 08/06/2019 12:00:00 AM EDT 1.0 {tablet} active PredniSONE 5 MG eCW1 (Formerly [facility], 1928–1983) latanoprost 0.05 MG/ML Ophthalmic Solution Latanoprost 0.005 % Latanoprost 0.005 % 08/06/2019 12:00:00 AM EDT 1.0 {drop_into_affected_eye_in_ the_evening} active Latanoprost 0.005 % eCW1 ([facility]) Insulin, Aspart, Human 100 UNT/ML Inject able Solution [NovoLog] NovoLog 100 UNIT/ML NovoLog 100 UNIT/ML 08/06/2019 12:00:00 AM EDT active NovoLog 100 UNIT/ML eCW1 (Formerly [facility], 1928–1983) pantoprazole 40 MG Delayed Release Oral Tablet [Proton ix] Protonix 40 MG Protonix 40 MG 08/06/2019 12:00:00 AM EDT 1.0 {tablet} active Protonix 40 MG eCW1 (Formerly [facility], 1928–1983) Insulin, Aspart, Human 100 UNT/ML Inject able Solution [NovoLog] NovoLog 100 UNIT/ML NovoLog 100 UNIT/ML 08/06/2019 12:00:00 AM EDT active as directed eCW1 (Formerly [facility], 1928–1983) latanoprost 0.05 MG/ML Ophthalmic Solution Latanoprost 0.005 % Latanoprost 0.005 % 08/06/2019 12:00:00 AM EDT 1.0 {drop_into_affected_eye_in_ the_evening} active Latanoprost 0.005 % eCW1 ([facility]) Insulin, Aspart, Human 100 UNT/ML Inject able Solution [NovoLog] NovoLog 100 UNIT/ML NovoLog 100 UNIT/ML 08/06/2019 12:00:00 AM EDT active NovoLog 100 UNIT/ML eCW1 (Formerly [facility], 1928–1983) latanoprost 0.05 MG/ML Ophthalmic Solution Latanoprost 0.005 % Latanoprost 0.005 % 08/06/2019 12:00:00 AM EDT 1.0 {drop_into_affected_eye_in_ the_evening} active Latanoprost 0.005 % eCW1 ([facility]) pantoprazole 40 MG Delayed Release Oral Tablet [Proton ix] Protonix 40 MG Protonix 40 MG 08/06/2019 12:00:00 AM EDT 1.0 {tablet} active Protonix 40 MG eCW1 (Formerly [facility], [facility]–1983) Prednisone 5 MG Oral Tablet PredniSONE 5 MG PredniSONE 5 MG 08/06/2019 12:00:00 AM EDT 1.0 {tablet} active PredniSONE 5 MG eCW1 (Formerly [facility], 1928–1983) Sucralfate 1000 MG Oral Tablet Sucralfate 1 GM Sucralfate 1 GM 08/06/2019 12:00:00 AM EDT 1.0 {tablet_on_an_empty_stomach} active Sucralfate 1 GM eCW1 (Formerly [facility], 1928–1983) latanoprost 0.05 MG/ML Ophthalmic Solution Latanoprost 0.005 % Latanoprost 0.005 % 08/06/2019 12:00:00 AM EDT 1.0 {drop_into_affected_eye_in_ the_evening} active Latanoprost 0.005 % eCW1 ([facility]) Insulin, Aspart, Human 100 UNT/ML Inject able Solution [NovoLog] NovoLog 100 UNIT/ML NovoLog 100 UNIT/ML 08/06/2019 12:00:00 AM EDT suspended NovoLog 100 UNIT/ML eCW1 (Formerly [facility], [facility]–1983) Sucralfate 1000 MG Oral Tablet Sucralfate 1 GM Sucralfate 1 GM 08/06/2019 12:00:00 AM EDT 1.0 {tablet_on_an_empty_stomach} active Sucralfate 1 GM eCW1 (Formerly [facility], 1928–1983) pantoprazole 40 MG Delayed Release Oral Tablet [Proton ix] Protonix 40 MG Protonix 40 MG 08/06/2019 12:00:00 AM EDT 1.0 {tablet} suspended Protonix 40 MG eCW1 (Formerly [facility], 1928–1983) Prednisone 5 MG Oral Tablet PredniSONE 5 MG PredniSONE 5 MG 08/06/2019 12:00:00 AM EDT 1.0 {tablet} active PredniSONE 5 MG eCW1 (Formerly [facility], 1928–1983) Citalopram 40 MG Oral Tablet [Celexa] Celexa 40 MG Celexa 40 MG 04/17/2019 12:00:00 AM EST active 1 tab e CW1 (Formerly [facility], [facility]–1983) Citalopram 40 MG Oral Tablet [Celexa] Celexa 40 MG Celexa 40 MG 04/17/2019 12:00:00 AM EST active Celexa 4 0 MG eCW1 (Formerly [facility], 1928–1983) Citalopram 40 MG Oral Tablet [Celexa] Celexa 40 MG Celexa 40 MG 04/17/2019 12:00:00 AM EST active Celexa 4 0 MG eCW1 (Formerly [facility], 1928–1983) Citalopram 40 MG Oral Tablet [Celexa] Celexa 40 MG Celexa 40 MG 04/17/2019 12:00:00 AM EST active Celexa 4 0 MG eCW1 (Formerly [facility], 1928–1983) Celexa 40 MG UNK 04/17/2019 12:00:00 AM EST activ e 1 tab eCW1 (Formerly [facility], [facility]–1983) Citalopram 40 MG Oral Tablet [Celexa] Celexa 40 MG Celexa 40 MG 04/17/2019 12:00:00 AM EST active Celexa 4 0 MG eCW1 (Formerly [facility], 1928–1983) Citalopram 40 MG Oral Tablet [Celexa] Celexa 40 MG Celexa 40 MG 04/17/2019 12:00:00 AM EST active Celexa 4 0 MG eCW1 (Formerly [facility], 1928–1983) Citalopram 40 MG Oral Tablet [Celexa] Celexa 40 MG Celexa 40 MG 04/17/2019 12:00:00 AM EST active Celexa 4 0 MG eCW1 (Formerly [facility], 1928–1983) Citalopram 40 MG Oral Tablet [Celexa] Celexa 40 MG Celexa 40 MG 04/17/2019 12:00:00 AM EST active 1 tab e CW1 (Formerly [facility], [facility]–1983) Citalopram 40 MG Oral Tablet [Celexa] Celexa 40 MG Celexa 40 MG 04/17/2019 12:00:00 AM EST active 1 tab e CW1 (Formerly [facility], [facility]–1983) Citalopram 40 MG Oral Tablet [Celexa] Celexa 40 MG Celexa 40 MG 04/17/2019 12:00:00 AM EST active Celexa 4 0 MG eCW1 (Formerly [facility], 1928–1983) Citalopram 40 MG Oral Tablet [Celexa] Celexa 40 MG Celexa 40 MG 04/17/2019 12:00:00 AM EST active Celexa 4 0 MG eCW1 (Formerly [facility], 1928–1983) Citalopram 40 MG Oral Tablet [Celexa] Celexa 40 MG Celexa 40 MG 04/17/2019 12:00:00 AM EST active Celexa 4 0 MG eCW1 (Formerly [facility], 1928–1983) Citalopram 40 MG Oral Tablet [Celexa] Celexa 40 MG Celexa 40 MG 04/17/2019 12:00:00 AM EST active Celexa 4 0 MG eCW1 (Formerly [facility], 1928–1983) Citalopram 40 MG Oral Tablet [Celexa] Celexa 40 MG Celexa 40 MG 04/17/2019 12:00:00 AM EST active Celexa 4 0 MG eCW1 (Formerly [facility], 1928–1983) Citalopram 40 MG Oral Tablet [Celexa] Celexa 40 MG Celexa 40 MG 04/17/2019 12:00:00 AM EST active Celexa 4 0 MG eCW1 (Formerly [facility], 1928–1983) Citalopram 40 MG Oral Tablet [Celexa] Celexa 40 MG Celexa 40 MG 04/17/2019 12:00:00 AM EST active Celexa 4 0 MG eCW1 (Formerly [facility], 1928–1983) Citalopram 40 MG Oral Tablet [Celexa] Celexa 40 MG Celexa 40 MG 04/17/2019 12:00:00 AM EST active Celexa 4 0 MG eCW1 (Formerly [facility], 1928–1983) Citalopram 40 MG Oral Tablet [Celexa] Celexa 40 MG Celexa 40 MG 04/17/2019 12:00:00 AM EST active Celexa 4 0 MG eCW1 (Formerly [facility], 1928–1983) Citalopram 40 MG Oral Tablet [Celexa] Celexa 40 MG Celexa 40 MG 04/17/2019 12:00:00 AM EST active Celexa 4 0 MG eCW1 (Formerly [facility], 1928–1983) Citalopram 40 MG Oral Tablet [Celexa] Celexa 40 MG Celexa 40 MG 04/17/2019 12:00:00 AM EST active Celexa 4 0 MG eCW1 (Formerly [facility], 1928–1983) Citalopram 40 MG Oral Tablet [Celexa] Celexa 40 MG Celexa 40 MG 04/17/2019 12:00:00 AM EST active Celexa 4 0 MG eCW1 (Formerly [facility], 1928–1983) Citalopram 40 MG Oral Tablet [Celexa] Celexa 40 MG Celexa 40 MG 04/17/2019 12:00:00 AM EST active Celexa 4 0 MG eCW1 (Formerly [facility], 1928–1983) Citalopram 40 MG Oral Tablet [Celexa] Celexa 40 MG Celexa 40 MG 04/17/2019 12:00:00 AM EST active Celexa 4 0 MG eCW1 (Formerly [facility], 1928–1983) Citalopram 40 MG Oral Tablet [Celexa] Celexa 40 MG Celexa 40 MG 04/17/2019 12:00:00 AM EST active 1 tab e CW1 (Formerly [facility], [facility]–1983) Citalopram 40 MG Oral Tablet [Celexa] Celexa 40 MG Celexa 40 MG 04/17/2019 12:00:00 AM EST active Celexa 4 0 MG eCW1 (Formerly [facility], 1928–1983) Citalopram 40 MG Oral Tablet [Celexa] Celexa 40 MG Celexa 40 MG 04/17/2019 12:00:00 AM EST active Celexa 4 0 MG eCW1 (Formerly [facility], 1928–1983) Citalopram 40 MG Oral Tablet [Celexa] Celexa 40 MG Celexa 40 MG 04/17/2019 12:00:00 AM EST active Celexa 4 0 MG eCW1 (Formerly [facility], [facility]–1983) Citalopram 40 MG Oral Tablet [Celexa] Celexa 40 MG Celexa 40 MG 04/17/2019 12:00:00 AM EST active Celexa 4 0 MG eCW1 (Formerly [facility], 1928–1983) Citalopram 40 MG Oral Tablet [Celexa] Celexa 40 MG Celexa 40 MG 04/17/2019 12:00:00 AM EST active Celexa 4 0 MG eCW1 (Formerly [facility], 1928–1983) Citalopram 40 MG Oral Tablet [Celexa] Celexa 40 MG Celexa 40 MG 04/17/2019 12:00:00 AM EST active Celexa 4 0 MG eCW1 (Formerly [facility], 1928–1983) Citalopram 40 MG Oral Tablet [Celexa] Celexa 40 MG Celexa 40 MG 04/17/2019 12:00:00 AM EST active Celexa 4 0 MG eCW1 (Formerly [facility], 1928–1983) Citalopram 40 MG Oral Tablet [Celexa] Celexa 40 MG Celexa 40 MG 04/17/2019 12:00:00 AM EST active Celexa 4 0 MG eCW1 (Formerly [facility], 1928–1983) Citalopram 40 MG Oral Tablet [Celexa] Celexa 40 MG Celexa 40 MG 04/17/2019 12:00:00 AM EST active Celexa 4 0 MG eCW1 (Formerly [facility], 1928–1983) Citalopram 40 MG Oral Tablet [Celexa] Celexa 40 MG Celexa 40 MG 04/17/2019 12:00:00 AM EST active Celexa 4 0 MG eCW1 (Formerly [facility], 1928–1983) Citalopram 40 MG Oral Tablet [Celexa] Celexa 40 MG Celexa 40 MG 04/17/2019 12:00:00 AM EST active Celexa 4 0 MG eCW1 (Formerly [facility], 1928–1983) Citalopram 40 MG Oral Tablet [Celexa] Celexa 40 MG Celexa 40 MG 04/17/2019 12:00:00 AM EST active Celexa 4 0 MG eCW1 (Formerly [facility], 1928–1983) Insurance Providers Payer name Policy type / Coverage type Policy ID Covered libertarian ID Covered libertarian's relationship to wright Policy Wright Plan Information MEDICARE COMPLETE [id number] SP [id number] EMEDNY [id number] SP [id number] MEDICARE COMPLETE [id number] SP [id number] [employer] MEDICARE [id number] S [id number] MEDICAID [id number] MEDICARE [id number] SP [id number] MEDICARE COMPLETE-C O [id number] S [id number] MEDICAID M [id number] [employer] MEDICARE [id number] S [id number] [facility] MCRHMO [id number] SP [id number] [facility] MCR[facility]MO [id number] SP [id number] MEDICARE [id number] SP [id number] WELLCARE [id number] SP [id number] EMEDNY [id number] SP [id number] MEDICARE [id number] SP [id number] MEDICARE COMPLETE [id number] SP [id number] MEDICARE COMPLETE [id number] SP [id number] WELLCARE [id number] SP [id number] WELLCARE [id number] SP [id number] WELLCARE O [id number] S [id number] WELLCARE [id number] S [id number] WELLCARE O [id number] S [id number] MEDICARE [id number] SP [id number] MEDICAID [id number] SP [id number] MEDICARE C [id number] S [id number] [id number] MEDICAID [id number] SP [id number] WELLCARE [id number] S [id number] [id number] MEDICARE [id number] S [id number] WELLCARE [id number] S [id number] MEDICARE -RECURRING [id number] 18 [id number] MEDICAID -RECURRING [id number] 1 [id number] ANSI-Medicaid [id number] ANSI-Medicare Part B [id number] ANSI-Medicaid [id number] ANSI-Medicare Part B [id number] ANSI-Medicare Part B [id number] ANSI-Medicaid [id number] ANSI-Medicare Part B [id number] ANSI-Medicaid [id number] ANSI-Medicaid [id number] ANSI-Medicare Part B [id number] ANSI-Medicaid [id number] ANSI-Medicare Part B [id number] ANSI-Medicaid [id number] ANSI-Medicare Part B [id number] ANSI-Medicaid [id number] ANSI-Medicare Part B [id number] ANSI-Medicare Part B [id number] ANSI-Medicaid [id number] ANSI-Medicare Part B [id number] ANSI-Medicaid [id number] ANSI-Medicare Part B [id number] ANSI-Medicaid [id number] ANSI-Medicare Part B [id number] ANSI-Medicaid [id number] ANSI-Medicaid [id number] ANSI-Medicare Part B [id number] ANSI-Medicare Part B [id number] ANSI-Medicaid [id number] MEDICARE -[facility] [id number] ANSI-Medicaid [id number] ANSI-Medicare Part B [id number] ANSI-Medicaid [id number] ANSI-Medicare Part B [id number] ANSI-Medicare Part B [id number] ANSI-Medicaid [id number] Medicaid [place] Medigap Part B [id number] Self [id number] Medicare [place] Medicare Primary [id number] Self [id number] ANSI-Medicare Part B [id number] ANSI-Medicaid [id number] ANSI-Medicaid [id number] ANSI-Medicare Part B [id number] ANSI-Medicaid [id number] ANSI-Medicare Part B [id number] ANSI-Medicare Part B [id number] ANSI-Medicaid [id number] ANSI-Medicare Part B [id number] ANSI-Medicaid [id number] MEDICARE [id number] ANSI-Medicare Part B [id number] ANSI-Medicaid [id number] ANSI-Medicaid [id number] ANSI-Medicare Part B [id number] ANSI-Medicare Part B [id number] [facility]-Medicaid [id number] [facility]-Medicaid [id number] ANSI-Medicare Part B [id number] [facility]-Medicaid [id number] ANSI-Medicare Part B [id number] ANSI-Medicare Part B [id number] ANS-Medicaid [id number] [facility]-Medicaid [id number] ANSI-Medicare Part B [id number] ANSI-Medicaid [id number] ANSI-Medicare Part B [id number] ANSI-Medicaid [id number] ANSI-Medicare Part B [id number] ANSI-Medicaid [id number] ANSI-Medicare Part B [id number] ANSI-Medicaid [id number] ANSI-Medicare Part B [id number] ANSI-Medicare Part B [id number] ANSI-Medicaid [id number] MEDICARE [id number] SP [id number] A ANSI-Medicare Part B [id number] ANSI-Medicaid [id number] 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[employer] GABRIEL RHONDA [id number] SELF [id number] MEDICARE [id number] SELF [id number] A MEDICARE PART A [id number] Patient [id number] COMPUTER SCIENCE GABRIEL RHONDA UNAVAILABLE SELF UNAVAILABLE PERSONAL PAY UNAVAILABLE SELF UNAVA ILABLE MEDICARE C [id number] S [id number] A [place] MEDICARE PART B C [id number] S [id number] MEDICAID [id number] SP [id number] Medicaid [place] Med[place] Part B [id number] Self [id number] [place] Medicare Primary [id number] Self [id number] [facility] C [id number] S [id number] [place] Med[place] Part B [id number] Self [id number] [place] Primary [id number] Self [id number] [place] B [id number] Self [id number] [place] Primary [id number] Self [id number] MEDICAID [id number] SP [id number] MEDICAID [id number] SP [id number] MEDICAID M [id number] Self [id number] MEDICARE A [id number] Self [id number] A MEDICAID -O/P [id number] MEDICARE -O/P [id number] 18 [id number] OTHER WORKERS COMPENSATION [id number] SP [id number] MEDICAID -CLINIC [id number] 18 [id number] MEDICARE -CLINIC [id number] 18 [id number] WORKMANS COMPENSATION -O/ [id number] 18 [id number] MEDICAID -PHYSICIAN [id number] WORKMANS COMPENSATION -O/P [id number] 18 [id number] MEDICARE -PHYSICIAN [id number] 18 [id number] Problems, Conditions, and Diagnoses Code Display Name Description Problem Type Effective Dates Data Source(s) S88.111A [id number] Below-knee amputation of right lower extr emity Problem 04/06/2020 12:00:00 AM EST eCW1 ([facility], [facility]) Z89.512 [id number] 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 Problem 03/11/2020 12:00:00 AM EST eCW1 ([facility], [facility]1983) Z89.511 [id number] Acquired absence of right leg below knee Problem 03/11/2020 12:00:00 AM EST eCW1 ([facility], [facility]1983) S88.119A [id number] Amputation below knee Problem 02/24/2020 12: 00:00 AM EST eCW1 ([facility], [facility]) M86.9 [id number] Osteomyelitis of right foot, unspecif ied type Problem 02/19/2020 12:00:00 AM EST eCW1 ([facility], [facility]) [id number] O/E - Amputated left below knee O/E - Amputated left below knee Problem 01/26/2020 12:00:00 AM EDT [facility] ([facility] [id number] Pain in limb Pain in limb Problem 01/26/2020 12:00:00 A M EDT [facility] ([facility] 921301803 Gangrenous disorder Gangrenous disorder Problem 1 12:00:00 AM EDT [facility] ([facility] [id number] Pressure ulcer of right foot stage 4 Pre ssure ulcer of right foot stage 4 Problem 01/26/2020 12:00:00 AM EDT [facility] ([facility] [id number] Type 2 diabetes mellitus with ulcer Type 2 diabetes mellitus with ulcer Problem 01/26/2020 12:00:00 AM EDT [facility] ([facility] L97.514 [id number] 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 Problem 12/31/2019 12:00:00 AM EDT eCW1 ([facility]) E11.621 [id number] Type 2 diabetes mellitus with foot ulcer Problem 12/31/2019 12:00:00 AM EDT eCW1 ([facility], [facility]) E10.69 [id number] Type 1 diabetes mellitus with ot her specified complication Problem 10/17/2019 12:00:00 AM EDT eCW1 (Critical access hospital) L97.519 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 Non-pressure chronic ulcer of other part of right foot with unspecified severity Problem 09/18/2019 12:00:00 AM EDT eCW1 ([facility]) E10.621 Foot ulcer due to type 1 diabetes [facility] Type 1 diabetes mellitus with foot ulcer Problem 09/18/2019 12:00:00 AM EDT eCW1 ([facility]) 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 [place] E27.40 Unspecified adrenocortical insufficiency UNSPECIFIED ADRENOCORTICAL INSUFFICIENCY Diagnosis 04/24/2019 03:04:[address] [facility] [place] Surgeries/Procedures Procedure Description Date Indications Data Source(s) Amputation Below Knee 03/03/2020 12:00:00 [facility], [facility] outpatient clinic visit for assessment and ma nagement of a patient Hospital Outpatient Clinic Visit 03/02/2020 12:00:00 AM [facility] COLLECTION VENOUS BLOOD VENIPUNCTURE ROUTINE VENIPUNCTURE 12:00:00 AM [facility] HEMOGLOBIN GLYCOSYLATED A1C GLYCOSYLATED HEMOGLOBIN TEST 04/2019 12:00:00 AM [facility] FINE NEEDLE ASPIRATION W/O IMAGING GUIDANCE 02/23/2020 12:00:00 AM EST eCW1 ([facility], [facility]) Amputation Metatarsal W/Toe 01/28/2020 12:00:00 AM EDT [facility] ([facility] FINE NEEDLE ASPIRATION W/O IMAGING GUIDANCE 01/19/2020 12:00:00 AM EDT eCW1 ([facility], [facility]) FINE NEEDLE ASPIRATION W/O IMAGING GUIDANCE 01/09/2020 12:00:00 AM EDT eCW1 ([facility], [facility]) Revascularization,Endovascular,Transluminal Angioplasty 12/31/2019 12:00:00 AM EDT [facility] ([facility], ) REVSC OPN/PRQ TIB/FABIENNE W/ANGIOPLASTY UNI 12/31/2019 12 :00:00 AM EDT [facility] ([facility], ) REVSC OPN/PRQ TIB/FABIENNE W/ANGIOPLASTY UNI EA VSL 2019 12:00:00 AM EDT [facility] ([facility], ) Moderate Sedation Services; Same Phys Intl 15 Mins; PT >= 5 Years 12/31/2019 12:00:00 AM EDT [facility] ([facility], ) Angiography Internal Corotid Of The Ipsil Intrac Circulation 10/08/2019 12:00:00 AM EDT [facility] ([facility], ) Each Intracranial Branch Of The Internal Corotid/Vertebral 10/08/2019 12:00:00 AM EDT [facility] ([facility], ) REVSC OPN/PRQ TIB/FABIENNE W/ANGIOPLASTY UNI EA VSL 2019 12:00:00 AM EDT [facility] ([facility], ) REVSC OPN/PRQ TIB/FABIENNE W/ANGIOPLASTY UNI EA VSL 2019 12:00:00 AM EDT [facility] ([facility], ) Moderate Sedation Services; Same Phys Intl 15 Mins; PT >= 5 Years 10/08/2019 12:00:00 AM EDT [facility] ([facility], ) Endoscopy Upper GI Biopsy 09/17/2019 12:00:00 AM EDT [facility] ([facility], ) Office Visit, Est Pt., Level 2 FC 08/14/2019 12:00:00 AM EDT eCW1 ([facility], [facility]) TRANS CARE MGMT 7 DAY DISCH 08/14/2019 12:00:00 AM EDT eCW1 ([facility], [facility]) Transitional Care NO CHARGE Visit 08/07/2019 12:00:00 AM EDT eCW1 ([facility], [facility]) DSTRJ LESION ANUS EXTENSIVE 06/06/2019 12:00:00 AM EST eCW1 ([facility], [facility]) GLUC BLD GLUC MNTR DEV CLEARED FDA SPEC HOME USE GLUCOSE BLO OD TEST 04/24/2019 12:00:00 AM [facility] BASIC METABOLIC PANEL CALCIUM TOTAL METABOLIC PANEL TOTAL CA 04/24/2019 12:00:00 AM [facility] Results ID Date Data Source [id number] 04/29/2020 10:04:00 AM EST [facility] Name Value Range Interpretation Code Description Data Mireille rce(s) Supporting Document(s) SARS COVID ANTIGEN POSITIVE [facility] This lab was ordered by POLI [facility] a nd reported by [facility]. ID Date Data Source [id number] 04/12/2020 08:23:00 PM [facility] Name Value Range Interpretation Code Description Data Mireille rce(s) Supporting Document(s) SARS-CoV-2 (COVID 19) NEGATIVE - SARS-CoV-2 (COVID19) [facility] This lab was ordered by [facility] a nd reported by [facility]. ID Date Data Source [id number] 03/16/2020 05:11:00 AM [facility] Name Value Range Interpretation Code Description Data Mireille rce(s) Supporting Document(s) Hemoglobin A1C % Less than 5.7% Above high normal [facility] HBA1C: Normal: Less than 5.7% Prediabetes: 5.7% to 6.4% Diabetes: 6.5% or higher HA1C % vs Estimated Average Glucose (eAG) % eAG % eAG 6% 126 mg/dL 10% 240 mg/dL 7% 154 mg/dL 11% 269 mg/dL 8% 183 mg/dL 12% 298 mg/dL 9% 212 mg/dL Reference: [place] [employer], 2017 ID Date Data Source [id number] 02/28/2020 11:00:00 AM EST [facility] Name Value Range Interpretation Code Description Data [facility] rce(s) Supporting Document(s) SARS coronavirus 2 RNA [facility] This lab was ordered by [facility] and reported by [facility]. ID Date Data Source [id number] 01/28/2020 04:53:00 PM EDT [facility] ([facility] Name Value Range Interpretation Code Description Data [facility] rce(s) Supporting Document(s) Glucose [Mass/volume] in Capillary blood by Glucometer 154 mg/dL 80-115 Above high normal [facility] ([facility] ID Date Data Source [id number] 01/28/2020 04:09:00 PM EDT [facility] ([facility] Name Value Range Interpretation Code Description Data [place] campuse(s) Supporting Document(s) Surgical pathology study Laboratory test [...] An area of gangrenous changes is noted. Supply Chain Director sections are submitted in two after decalcification. -OA 01/29/20201303 Signed SALINA SAUNDERS MD 01/30/2020 0957 ID Date Data Source [id number] 01/28/2020 11:26:00 AM EDT [facility] ([facility] Name Value Range Interpretation Code Description Data Mireille rce(s) Supporting Document(s) Glucose [Mass/volume] in Capillary blood by Glucometer 91 mg/dL 80- 115 [facility] ([facility] ID Date Data Source [id number] 12/31/2019 11:17:00 AM EDT [facility] ([facility]) Name Value Range Interpretation Code Description Data Mireille rce(s) Supporting Document(s) Glucose [Mass/volume] in Capillary blood by Glucometer 142 mg/dL 80-115 Above high normal [facility] ([facility]) ID Date Data Source [id number] 12/31/2019 08:51:00 AM EDT [facility] ([facility]) Name Value Range Interpretation Code Description Data Mireille rce(s) Supporting Document(s) Glucose [Mass/volume] in Capillary blood by Glucometer 131 mg/dL 80-115 Above high normal [facility] ID Date Data Source [id number] 12/17/2019 10:05:00 AM EDT [facility]) Name Value Range Interpretation Code Description Data Mireille rce(s) Supporting Document(s) Glucose, Fasting 158 mg/dL 70-100 Above high normal [facility] ([facility]) Blood Urea Nitrogen 15 mg/dL 7-18 Normal (applies to non-nume nelson results) [facility]) Creatinine For GFR 1.36 mg/dL 0.70-1.30 Above high normal [facility] ([facility]) Glomerular Filtration Rate 56.9 Normal (applies to n on-numeric results) [facility] ([facility]) <content>Units are mL/min/1.73 m2</content>
<content></content>
<content>Chronic Kidney Disease Staging per NKF:</content>
<content></content>
<content>Stage I & II GFR >=60 Normal to Mildly Decreased</content>
<content>Stage III GFR 30- 59 Moderately Decreased</content>
<content>Stage IV GFR 15-29 Severely Decreased</content>
<content>Stage V GFR <15 Very Little GFR Left</content>
<content>ESRD GFR <15 on LITIGATION MANAGER</content>
<content></content> Chloride Level 105 meq/L 98-107 Normal (applies to non-numeric r esults) [facility] ([facility]) Potassium Serum 4.6 meq/L 3.5-5.1 Normal (applies to non-numeric results) [facility] ([facility]) Sodium Level 139 meq/L 136-145 Normal (applies to non-numeric res ults) [facility] ([facility]) Calcium Level 9.3 mg/dL 8.8-10.2 Normal (applies to non-numeric re sults) [facility] ([facility]) Anion Gap 7 meq/L 8-16 Below low normal [facility] ( [facility]) Carbon Dioxide Level 27 meq/L 21-32 Normal (applies to non-num gage results) [facility] ([facility]) ID Date Data Source [id number] 12/17/2019 10:05:00 AM EDT [facility]) Name Value Range Interpretation Code Description Data Mireille rce(s) Supporting Document(s) White Blood Count 6.8 10 4.0-10.0 Normal (applies to non-numeri c results) [facility] ([facility]) Red Blood Count 3.47 10 4.30-6.10 Below low normal [facility] ([facility]) Hemoglobin 11.2 g/dL 13.5-17.5 Below low normal [facility] ( [facility]) Hematocrit 32.8 % 42.0-52.0 Below low normal [facility] ( [facility]) Mean Corpuscular Volume 94.5 fl 80.0-96.0 Normal ( applies to non-numeric results) [facility] ([facility], ) Mean Corpuscular Hemoglobin 32.3 pg 27.0-33.0 Norm al (applies to non-numeric results) [facility] ([place], [place])) Mean Corpuscular HGB Conc 34.1 g/dL 32.0-36.5 Normal (applies to non-numeric results) [facility] ([place], [place])) Red Cell Distribution Width 12.1 % 11.5-14.5 Norm al (applies to non-numeric results) [facility] ([facility]) Nucleated Red Blood Cell % 0.0 % 0-0 Normal (applies to n on-numeric results) [facility] ([facility]) Platelet Count, Automated 214 10 150-450 Normal (applies to non-numeric results) [facility] ([place], [place])) ID Date Data Source [id number] 12/01/2019 06:43:00 PM EDT [facility] Name Value Range Interpretation Code Description Data Mireille rce(s) Supporting Document(s) Triglycerides 101 mg/dL 0-150 Normal (applies to non-numeric re sults) [facility] Cholesterol 163 mg/dL 0-200 Normal (applies to non-numeric resu lts) [facility] LDL Cholesterol,Direct 77 mg/dL <100 Normal (applies to non-n umeric results) [facility] LDL Interpretative Data Optimal <100 (mg/dL) Near optimal 100-129 (mg/dL) Borderline High 130-159 (mg/dL) High 160-189 (mg/dL) Very High >190 (mg/dL) HDL Cholesterol 73 mg/dL 40-60 Above high normal [facility] CHOL/HDL Ratio Normal (applies to non-numeric r esults) [facility] NATIONAL CHOLESTEROL GUIDEL [facility], [...] Average 13.5 11.0 ID Date Data Source [id number] 12/01/2019 06:43:00 PM EDT [facility] Name Value Range Interpretation Code Description Data Mireille rce(s) Supporting Document(s) Sodium 138 mmol/L 137-145 Normal (applies to non-numeric resul ts) [facility] Potassium 3.5-5.1 Normal (applies to non-numeric resul ts) [facility] Chloride 105 mmol/L 98-112 Normal (applies to non-numeric resul ts) [facility] Carbon Dioxide CO2 22.0-33.0 Normal (applies to non-numer ic results) [facility] Anion Gap 4.0-11.0 Normal (applies to non-numeric resul ts) [facility] BUN 16 mg/dL 9-20 Normal (applies to non-numeric resul ts) [facility] Creatinine 0.80-1.50 Normal (applies to non-numeric resul ts) [facility] GFR 48 mL/min >60 Below low normal [facility] Result based on MDRD formula. Glucose Level 66 mg/dL 74-99 Below low normal [facility] The reference range is only applicable w hen fasting. Calcium-Uncorrected 8.4-10.2 Normal (applies to non-nume nelson results) [facility] Corrected Calcium 8.4-10.2 Normal (applies to non-numeri c results) [facility] ID Date Data Source [id number] 12/01/2019 06:43:00 PM EDT [facility] Name Value Range Interpretation Code Description Data Mireille rce(s) Supporting Document(s) Thyroid Stimulate Hormone TSH 0.358-3.740 No rmal (applies to non-numeric results) [facility] ID Date Data Source [id number] 12/01/2019 06:40:00 PM EDT [facility] Name Value Range Interpretation Code Description Data Mireille rce(s) Supporting Document(s) Creatinine,Urine Normal (applies to non-numeric results) [facility] Interpret with care as there is no estab lished reference range associated with this assay's methodology that pertains to this particular sex and/or age. Microalbumin,Urine <1.7 Normal (applies to non-numer ic results) [facility] Albumin/Creatinine Ratio,Urine Normal (applies to non-numeric results) [facility] Reference Ranges for Microalbumin,spot: Normal <30 ug/mg creatinine Microalbuminuria 30-300 ug/mg creatinine Clinical Albuminuria >300 ug/mg creatinine ID Date Data Source [id number] 12/01/2019 06:23:00 PM EDT [facility] Name Value Range Interpretation Code Description Data Mireille rce(s) Supporting Document(s) Hemoglobin A1C % Less than 5.7% Above high normal [facility] HBA1C: Normal: Less than 5.7% Prediabetes: 5.7% to 6.4% Diabetes: 6.5% or higher HA1C % vs Estimated Average Glucose (eAG) % eAG % eAG 6% 126 mg/dL 10% 240 mg/dL 7% 154 mg/dL 11% 269 mg/dL 8% 183 mg/dL 12% 298 mg/dL 9% 212 mg/dL Reference: [place] [employer], 2017 ID Date Data Source [id number] 10/08/2019 12:37:00 PM EDT [facility] ([facility] ) Name Value Range Interpretation Code Description Data Mireille rce(s) Supporting Document(s) Glucose [Mass/volume] in Capillary blood by Glucometer 190 mg/dL 80-115 Above high normal [facility] ([facility]) ID Date Data Source [id number] 10/08/2019 09:46:00 AM EDT [facility] ([facility]) Name Value Range Interpretation Code Description Data Mireille rce(s) Supporting Document(s) Glucose [Mass/volume] in Capillary blood by Glucometer 208 mg/dL 80-115 Above high normal [facility] ([facility]) ID Date Data Source [id number] 10/08/2019 08:33:00 AM EDT [facility] ([facility]) Name Value Range Interpretation Code Description Data Mireille rce(s) Supporting Document(s) Glucose, Fasting 60 mg/dL 70-100 Below low normal [facility] ([facility]) Glomerular Filtration Rate 48.9 Below low normal [facility] ([facility]) <content>Units are mL/min/1.73 m2</content>
<content></content>
<content>Chronic Kidney Disease Staging per NKF:</content>
<content></content>
<content>Stage I & II GFR >=60 Normal to Mildly Decreased</content>
<content>Stage III GFR 30- 59 Moderately Decreased</content>
<content>Stage IV GFR 15-29 Severely Decreased</content>
<content>Stage V GFR <15 Very Little GFR Left</content>
<content>ESRD GFR <15 on LITIGATION MANAGER</content>
<content></content> Creatinine For GFR 1.55 mg/dL 0.70-1.30 Above high normal [facility] ([facility]) Blood Urea Nitrogen 18 mg/dL 7-18 Normal (applies to non-nume nelson results) [facility] ([facility]) Potassium Serum 4.3 meq/L 3.5-5.1 Normal (applies to non-numeric results) [facility] ([facility]) Chloride Level 107 meq/L 98-107 Normal (applies to non-numeric r esults) [facility] ([facility]) Sodium Level 141 meq/L 136-145 Normal (applies to non-numeric res ults) [facility] ([facility]) Carbon Dioxide Level 26 meq/L 21-32 Normal (applies to non-num gage results) [facility] ([facility]) Anion Gap 8 meq/L 8-16 Normal (applies to non-numeric resul ts) [facility] ([facility]) Calcium Level 9.3 mg/dL 8.8-10.2 Normal (applies to non-numeric re sults) [facility] ([place], [place])) ID Date Data Source [id number] 10/08/2019 08:33:00 AM EDT [facility]) Name Value Range Interpretation Code Description Data Mireille rce(s) Supporting Document(s) White Blood Count 7.1 10 4.0-10.0 Normal (applies to non-numeri c results) [facility] ([facility]) Red Blood Count 3.97 10 4.30-6.10 Below low normal [facility] ([facility]) Hemoglobin 12.6 g/dL 13.5-17.5 Below low normal [facility] ( [facility]) Mean Corpuscular Volume 97.0 fl 80.0-96.0 Above high normal [facility] ([facility]) Hematocrit 38.5 % 42.0-52.0 Below low normal [facility] ( [facility]) Mean Corpuscular HGB Conc 32.7 g/dL 32.0-36.5 Normal (applies to non-numeric results) [facility] ([facility]) Red Cell Distribution Width 12.1 % 11.5-14.5 Norm al (applies to non-numeric results) [facility] ([place], [place])) Mean Corpuscular Hemoglobin 31.7 pg 27.0-33.0 Norm al (applies to non-numeric results) [facility] ([facility]) Platelet Count, Automated 206 10 150-450 Normal (applies to non-numeric results) [facility] ([facility]) Nucleated Red Blood Cell % 0.0 % 0-0 Normal (applies to n on-numeric results) [facility] ([place], [place])) ID Date Data Source [id number] 09/17/2019 11:28:00 AM EDT [facility]) Name Value Range Interpretation Code Description Data Mireille rce(s) Supporting Document(s) Surgical pathology study Laboratory test result [facility] ([facility], ) FINAL DIAGNOSIS A - [...] MD 09/18/2019 1420 ID Date Data Source [id number] 09/14/2019 10:40:00 AM EDT [facility] Name Value Range Interpretation Code Description Data [facility] rce(s) Supporting Document(s) SARS CORONAVIRUS 2 RNA [facility] This lab was ordered by [facility] and reported by [facility]. ID Date Data Source [id number] 04/24/2019 06:44:00 PM EST [facility] Name Value Range Interpretation Code Description Data [facility] rce(s) Supporting Document(s) Sodium 140 mmol/L 137-145 Normal (applies to non-numeric resul ts) [facility] Potassium 3.5-5.1 Normal (applies to non-numeric resul ts) [facility] Chloride 105 mmol/L 98-112 Normal (applies to non-numeric resul ts) [facility] Carbon Dioxide CO2 22.0-33.0 Normal (applies to non-numer ic results) [facility] Anion Gap 4.0-11.0 Normal (applies to non-numeric resul ts) [facility] BUN 14 mg/dL 9-20 Normal (applies to non-numeric resul ts) [facility] Creatinine 0.80-1.50 Normal (applies to non-numeric resul ts) [facility] GFR 52 mL/min >60 Below low normal [facility] Result based on MDRD formula. Glucose Level 67 mg/dL 74-99 Below low normal [facility] The reference range is only applicable w hen fasting. Calcium-Uncorrected 8.4-10.2 Normal (applies to non-nume nelson results) [facility] Corrected Calcium 8.4-10.2 Normal (applies to non-numeri c results) [facility] ID Date Data Source [id number] 04/24/2019 06:41:00 PM EST [facility] Name Value Range Interpretation Code Description Data Mireille rce(s) Supporting Document(s) Hemoglobin A1C % Less than 5.7% Above high normal [facility] HBA1C: Normal: Less than 5.7% Prediabetes: 5.7% to 6.4% Diabetes: 6.5% or higher HA1C % vs Estimated Average Glucose (eAG) % eAG % eAG 6% 126 mg/dL 10% 240 mg/dL 7% 154 mg/dL 11% 269 mg/dL 8% 183 mg/dL 12% 298 mg/dL 9% 212 mg/dL Reference: [employer], 2017 Procedure Social History Code Duration Value Status Description Data Source(s ) Smoking 04/29/2020 12:00:00 AM EST Former Smoker completed Former Smoker eCW1 (Formerly [facility], 1928–1983) Smoking 04/06/2020 12:00:00 AM EST Former Smoker completed Former Smoker eCW1 (Formerly [facility], 1928–1983) Smoking 04/06/2020 12:00:00 AM EST Former Smoker completed Former Smoker eCW1 (Formerly [facility], 1928–1983) Smoking 04/06/2020 12:00:00 AM EST Former Smoker completed Former Smoker eCW1 (Formerly [facility], 1928–1983) Smoking 04/06/2020 12:00:00 AM EST Former Smoker completed Former Smoker eCW1 (Formerly [facility], 1928–1983) Smoking 04/06/2020 12:00:00 AM EST Former Smoker completed Former Smoker eCW1 (Formerly [facility], 1928–1983) Smoking 04/06/2020 12:00:00 AM EST Former Smoker completed Former Smoker eCW1 (Formerly [facility], 1928–1983) Smoking 04/06/2020 12:00:00 AM EST Former Smoker completed Former Smoker eCW1 (Formerly [facility], 1928–1983) Smoking 04/05/2020 12:00:00 AM EST Non Smoker completed Non Smoke r [facility] ([facility], ) Smoking 02/25/2020 12:00:00 AM EST Former Smoker completed Former Smoker eCW1 (Formerly [facility], 1928–1983) Smoking 02/25/2020 12:00:00 AM EST Former Smoker completed Former Smoker eCW1 (Formerly [facility], 1928–1983) Smoking 02/25/2020 12:00:00 AM EST Former Smoker completed Former Smoker eCW1 (Formerly [facility], 1928–1983) Smoking 02/25/2020 12:00:00 AM EST Former Smoker completed Former Smoker eCW1 (Formerly [facility], 1928–1983) Smoking 02/25/2020 12:00:00 AM EST Former Smoker completed Former Smoker eCW1 (Formerly [facility], 1928–1983) Smoking 02/25/2020 12:00:00 AM EST Former Smoker completed Former Smoker eCW1 (Formerly [facility], 1928–1983) Smoking 02/25/2020 12:00:00 AM EST Former Smoker completed Former Smoker eCW1 (Formerly [facility], 1928–1983) Smoking 02/24/2020 12:00:00 AM EST Former Smoker completed Former Smoker eCW1 (Formerly [facility], 1928–1983) Smoking 02/19/2020 12:00:00 AM EST Former Smoker completed Former Smoker eCW1 (Formerly [facility], 1928–1983) Smoking 02/19/2020 12:00:00 AM EST Former Smoker completed Former Smoker eCW1 (Formerly [facility], 1928–1983) Smoking 02/19/2020 12:00:00 AM EST Former Smoker completed Former Smoker eCW1 (Formerly [facility], 1928–1983) Smoking 02/09/2020 12:00:00 AM EST Former Smoker completed Former Smoker eCW1 (Formerly [facility], 1928–1983) Smoking 02/09/2020 12:00:00 AM EST Former Smoker completed Former Smoker eCW1 (Formerly [facility], 1928–1983) Smoking 01/19/2020 12:00:00 AM EDT Former Smoker completed Former Smoker eCW1 (Formerly [facility], 1928–1983) Smoking 01/19/2020 12:00:00 AM EDT Former Smoker completed Former Smoker eCW1 (Formerly [facility], 1928–1983) Smoking 01/19/2020 12:00:00 AM EDT Former Smoker completed Former Smoker eCW1 (Formerly [facility], 1928–1983) Smoking 09/18/2019 12:00:00 AM EDT Former Smoker completed Former Smoker eCW1 (Formerly [facility], 1928–1983) Smoking 09/18/2019 12:00:00 AM EDT Former Smoker completed Former Smoker eCW1 (Formerly [facility], 1928–1983) Smoking 09/18/2019 12:00:00 AM EDT Former Smoker completed Former Smoker eCW1 (Formerly [facility], 1928–1983) Smoking 09/18/2019 12:00:00 AM EDT Former Smoker completed Former Smoker eCW1 (Formerly [facility], 1928–1983) Smoking 08/14/2019 12:00:00 AM EDT Former Smoker completed Former Smoker eCW1 (Formerly [facility], 1928–1983) Smoking 08/14/2019 12:00:00 AM EDT Former Smoker completed Former Smoker eCW1 (Formerly [facility], 1928–1983) Smoking 08/14/2019 12:00:00 AM EDT Former Smoker completed Former Smoker eCW1 (Formerly [facility], 1928–1983) Smoking 08/14/2019 12:00:00 AM EDT Former Smoker completed Former Smoker eCW1 (Formerly [facility], 1928–1983) Vital Signs ID Date Data Source UNK Name Value Range Interpretation Code Description Data Source(s) Body surface area Derived from formula 1.79 m2 1.79 m2 [facility] ([facility]) Body weight 64.865 kg 64.865 kg [facility] ([facility]) [place] body weight 160 [lb_av] 160 [lb_av] [facility] T ([facility]) Body mass index (BMI) [Ratio] 21.1 kg/m2 21.1 k g/m2 [facility] ([facility]) Body weight 143.00 [lb_av] 143.00 [lb_av] MED[facility] T ([facility]) stated Body height 69 [in_i] 69 [in_i] [facility] ([facility]) 5'9" Diastolic blood pressure 73 mm[Hg] 73 mm[Hg] [facility] Systolic blood pressure 123 mm[Hg] 123 mm[Hg] M EDENT ([facility]) Diastolic blood pressure 65 mm[Hg] 65 mm[Hg] eCW1 (Formerly [facility], 1928–1983) Systolic blood pressure 136 mm[Hg] 136 mm[Hg] e CW1 (Formerly [facility], 1928–1983) Body temperature 98.3 [degF] 98.3 [degF] eCW1 ( Formerly [facility], 1928–1983) Respiratory rate 18 /min 18 /min eCW1 ([facility]) Heart rate 74 /min 74 /min eCW1 ([facility]) Body mass index (BMI) [Ratio] 22.89 kg/m2 22.89 kg/m2 eCW1 (Formerly [facility], 1928–1983) Body height 69 [in_i] 69 [in_i] eCW1 ([facility]) Body weight 155 [lb_av] 155 [lb_av] eCW1 ([facility] [place] body weight 160 [lb_av] 160 [lb_av] MED[facility] T ([facility]) Body mass index (BMI) [Ratio] 21.1 kg/m2 21.1 k g/m2 [facility] ([facility]) Body weight 143.00 [lb_av] 143.00 [lb_av] [facility] T ([facility]) Body height 69 [in_i] 69 [in_i] [facility], ) 5'9" Diastolic blood pressure 63 mm[Hg] 63 mm[Hg] [facility] ([facility]) Systolic blood pressure 110 mm[Hg] 110 mm[Hg] M EDENT ([facility]) Body surface area Derived from formula 1.79 m2 1.79 m2 [facility] ([facility]) Body weight 64.865 kg 64.865 kg [facility] ([facility], ) [place] body weight 160 [lb_av] 160 [lb_av] MED[facility] T ([facility]) Body height 69 [in_i] 69 [in_i] [facility] ([facility]) 5'9" Heart rate 85 /min 85 /min [facility] ([facility]) Diastolic blood pressure 61 mm[Hg] 61 mm[Hg] [facility] ([facility]) Systolic blood pressure 126 mm[Hg] 126 mm[Hg] M [facility]ENT ([facility]) Diastolic blood pressure 78 mm[Hg] 78 mm[Hg] eCW1 (Formerly [facility], 1928–1983) Systolic blood pressure 188 mm[Hg] 188 mm[Hg] e CW1 (Formerly [facility], 1928–1983) Body temperature 97.7 [degF] 97.7 [degF] eCW1 ( Formerly [facility], 1928–1983) Respiratory rate 20 /min 20 /min eCW1 ([facility]) Heart rate 90 /min 90 /min eCW1 ([facility]) Body mass index (BMI) [Ratio] 24.22 kg/m2 24.22 kg/m2 W1 (Formerly [facility], 1928–1983) Body height 69 [in_i] 69 [in_i] eCW1 ([facility]) Body weight 164 [lb_av] 164 [lb_av] eCW1 ([facility]) Diastolic blood pressure 58 mm[Hg] 58 mm[Hg] eCW1 (Formerly [facility], 1928–1983) Systolic blood pressure 107 mm[Hg] 107 mm[Hg] e CW1 (Formerly [facility], 1928–1983) Body temperature 98.5 [degF] 98.5 [degF] eCW1 ( Formerly [facility], 1928–1983) Respiratory rate 20 /min 20 /min eCW1 ([facility]) Heart rate 82 /min 82 /min eCW1 ([facility]) Body mass index (BMI) [Ratio] 24.22 kg/m2 24.22 kg/m2 W1 (Formerly [facility], 1928–1983) Body height 69 [in_i] 69 [in_i] eCW1 ([facility]) Body weight 164 [lb_av] 164 [lb_av] eCW1 ([facility]) Diastolic blood pressure mm[Hg] eCW1 (Formerly [facility], 1928–1983) Systolic blood pressure 188 mm[Hg] 188 mm[Hg] e CW1 (Formerly [facility], 1928–1983) Body temperature 98.2 [degF] 98.2 [degF] eCW1 ( Formerly [facility], 1928–1983) Respiratory rate 22 /min 22 /min eCW1 ([facility]) Heart rate 88 /min 88 /min eCW1 ([facility]) Body mass index (BMI) [Ratio] 24.81 kg/m2 24.81 kg/m2 eCW1 (Formerly [facility], 1928–1983) Body height 69 [in_i] 69 [in_i] eCW1 ([facility]) Body weight kg eCW1 ([facility]) Body weight 168 [lb_av] 168 [lb_av] eCW1 ([facility]) Body mass index (BMI) [Ratio] 24.8 kg/m2 [...] from formula 1.92 m2 1.92 m2 [facility] ([facility], ) Body weight 76.318 kg 76.318 kg [facility] ([facility]) [place] body weight 160 [lb_av] 160 [lb_av] MEDEN T ([facility]) Body mass index (BMI) [Ratio] 24.8 kg/m2 24.8 k g/m2 [facility] ([facility]) Body weight 168.25 [lb_av] 168.25 [lb_av] MED[facility] T ([facility]) Body height 69 [in_i] 69 [in_i] [facility] ([facility]) 5'9" Diastolic blood pressure 70 mm[Hg] 70 mm[Hg] [facility] ([facility]) Systolic blood pressure 128 mm[Hg] 128 mm[Hg] M EDENT ([facility]) Diastolic blood pressure 69 mm[Hg] 69 mm[Hg] eCW1 (Formerly [facility], 1928–1983) Systolic blood pressure 107 mm[Hg] 107 mm[Hg] e CW1 (Formerly [facility], 1928–1983) Body temperature 94.6 [degF] 94.6 [degF] eCW1 ( Formerly [facility], 1928–1983) Respiratory rate 18 /min 18 /min eCW1 ([facility]) Heart rate 77 /min 77 /min W1 ([facility]) Body mass index (BMI) [Ratio] 24.81 kg/m2 24.81 kg/m2 W1 (Formerly [facility], 1928–1983) Body height 69 [in_i] 69 [in_i] eCW1 ([facility]) Body weight kg eCW1 ([facility]) Body weight 168 [lb_av] 168 [lb_av] eCW1 ([facility]) Body mass index (BMI) [Ratio] 24.81 kg/m2 24.81 kg/m2 W1 (Formerly [facility], 1928–1983) Body height 69 [in_i] 69 [in_i] eCW1 ([facility]) Body weight kg eCW1 ([facility]) Body weight 168 [lb_av] 168 [lb_av] eCW1 ([facility]) Body weight 78.926 kg 78.926 kg [facility] ([facility]) [place] body weight 160 [lb_av] 160 [lb_av] MED[facility] T ([facility]) Body mass index (BMI) [Ratio] 25.7 kg/m2 25.7 k g/m2 [facility] ([facility]) Body weight 174.00 [lb_av] 174.00 [lb_av] [facility] T ([facility]) Body height 69 [in_i] 69 [in_i] [facility]) 5'9" Diastolic blood pressure 70 mm[Hg] 70 mm[Hg] [facility] ([facility]) Systolic blood pressure 124 mm[Hg] 124 mm[Hg] [facility] ([facility]) Body mass index (BMI) [Ratio] 25.5 kg/m2 25.5 k g/m2 [facility] ([facility]) Body weight 173.00 [lb_av] 173.00 [lb_av] [facility] T ([facility]) Body height 69 [in_i] 69 [in_i] [facility] ([facility]) 5'9" Diastolic blood pressure 82 mm[Hg] 82 mm[Hg] [facility] ([facility]) Systolic blood pressure 140 mm[Hg] 140 mm[Hg] [facility] ([facility]) Body weight 78.473 kg 78.473 kg [facility] ([facility]) Body weight 77.566 kg 77.566 kg [facility] ([facility]) Body mass index (BMI) [Ratio] 25.2 kg/m2 25.2 k g/m2 [facility] ([facility]) Body weight 171.00 [lb_av] 171.00 [lb_av] MED[facility] T ([facility]) Body height 69 [in_i] 69 [in_i] [facility] ([facility]) 5'9" Diastolic blood pressure 70 mm[Hg] 70 mm[Hg] [facility] ([facility]) Systolic blood pressure 120 mm[Hg] 120 mm[Hg] [facility] ([facility]) Body weight 77.112 kg 77.112 kg [facility] ([facility]) Body mass index (BMI) [Ratio] 25.1 kg/m2 25.1 k g/m2 [facility] ([facility]) Body weight 170.00 [lb_av] 170.00 [lb_av] [facility] T ([facility]) Body height 69 [in_i] 69 [in_i] [facility] ([facility]) 5'9" Diastolic blood pressure 80 mm[Hg] 80 mm[Hg] [facility] ([facility]) Systolic blood pressure 153 mm[Hg] 153 mm[Hg] [facility] ([facility]) Body weight 77.225 kg 77.225 kg [facility] ([facility]) Body mass index (BMI) [Ratio] 25.1 kg/m2 25.1 k g/m2 [facility] ([facility]) Body weight 170.25 [lb_av] 170.25 [lb_av] [facility] T ([facility]) Body height 69 [in_i] 69 [in_i] [facility] ([facility]) 5'9" Diastolic blood pressure 60 mm[Hg] 60 mm[Hg] [facility] ([facility]) Systolic blood pressure 100 mm[Hg] 100 mm[Hg] [facility] ([facility]) Body weight 77.225 kg 77.225 kg [facility] ([facility]) Body mass index (BMI) [Ratio] 25.1 kg/m2 25.1 k g/m2 [facility] ([facility]) Body weight 170.25 [lb_av] 170.25 [lb_av] [facility] T ([facility]) Body height 69 [in_i] 69 [in_i] [facility] ([facility]) 5'9" Diastolic blood pressure 73 mm[Hg] 73 mm[Hg] [facility] ([facility]) Systolic blood pressure 128 mm[Hg] 128 mm[Hg] [facility] ([facility]) Diastolic blood pressure 78 mm[Hg] 78 mm[Hg] eCW1 (Formerly [facility], 1928–1983) Systolic blood pressure 145 mm[Hg] 145 mm[Hg] e CW1 (Formerly [facility], 1928–1983) Body temperature 97.8 [degF] 97.8 [degF] eCW1 ( Formerly [facility], 1928–1983) Respiratory rate 17 /min 17 /min eCW1 ([facility]) Heart rate 87 /min 87 /min eCW1 ([facility]) Body mass index (BMI) [Ratio] 24.81 kg/m2 24.81 kg/m2 eCW1 (Formerly [facility], 1928–1983) Body height 69 [in_i] 69 [in_i] eCW1 ([facility]) Body weight 168 [lb_av] 168 [lb_av] eCW1 ([facility]) Body weight 74.844 kg 74.844 kg [facility] ([facility]) Body mass index (BMI) [Ratio] 24.4 kg/m2 24.4 k g/m2 [facility] ([facility]) Body weight 165.00 [lb_av] 165.00 [lb_av] [facility] Body height 69 [in_i] 69 [in_i] [facility] ([facility]) 5'9" Diastolic blood pressure 80 mm[Hg] 80 mm[Hg] [facility] ([facility]) Systolic blood pressure 165 mm[Hg] 165 mm[Hg] [facility] Diastolic blood pressure 68 mm[Hg] 68 mm[Hg] eCW1 (Formerly [facility], 1928–1983) Systolic blood pressure 111 mm[Hg] 111 mm[Hg] e CW1 (Formerly [facility], 1928–1983) Body temperature 98.0 [degF] 98.0 [degF] W1 ( Formerly [facility], 1928–1983) Respiratory rate 18 /min 18 /min eCW1 ([facility]) Heart rate 89 /min 89 /min eCW1 ([facility]) Body mass index (BMI) [Ratio] 24.81 kg/m2 24.81 kg/m2 eCW1 (Formerly [facility], 1928–1983) Body height 69 [in_us] 69 [in_us] eCW1 ([facility]) Body weight Measured 168 [lb_av] 168 [lb_av] eC W1 (Formerly [facility], 1928–1983) Diastolic blood pressure 82 mm[Hg] 82 mm[Hg] eCW1 ([facility]ly [facility], 1928–1983) Systolic blood pressure 132 mm[Hg] 132 mm[Hg] e CW1 ([facility]ly [facility], 1928–1983) Body mass index (BMI) [Ratio] 25.25 kg/m2 25.25 kg/m2 eCW1 ([facility]ly [facility], 1928–1983) Body height 69 [in_us] 69 [in_us] eCW1 ([facility]) Body weight Measured 171 [lb_av] 171 [lb_av] eC W1 (Formerly [facility], 1928–1983) Patient Treatment Plan of Care Planned Activity Planned Date Details Description Data Source (s) Misc. Devices - 03/11/2020 12:00:00 AM EST eCW1 (Formerly [facility], 1928–1983) Misc. Devices - 03/11/2020 12:00:00 AM EST eCW1 (Formerly [facility], 1928–1983) Misc. Devices - 03/11/2020 12:00:00 AM EST eCW1 (Formerly [facility], 1928–1983) Misc. Devices - 03/11/2020 12:00:00 AM EST eCW1 ([facility]ly [facility], 1928–1983) Misc. Devices - 03/11/2020 12:00:00 AM EST eCW1 ([facility]ly [facility], 1928–1983) Wheelchair - 02/24/2020 12:00:00 AM EST e CW1 (Formerly [facility], 1928–1983) Wheelchair - 02/24/2020 12:00:00 AM EST e CW1 ([facility]ly [facility], 1928–1983) Wheelchair - 02/24/2020 12:00:00 AM EST e CW1 ([facility]ly [facility], 1928–1983) Wheelchair - 02/24/2020 12:00:00 AM EST e CW1 ([facility]ly [facility], 1928–1983) Wheelchair - 02/24/2020 12:00:00 AM EST e CW1 ([facility]ly [facility], 1928–1983) Wheelchair - 02/24/2020 12:00:00 AM EST e CW1 ([facility]ly [facility], 1928–1983) Wheelchair - 02/24/2020 12:00:00 AM EST e CW1 (Formerly [facility], 1928–1983) Wheelchair - 02/24/2020 12:00:00 AM EST e CW1 (Formerly [facility], 1928–1983) Finasteride 5 MG Oral Tablet [Proscar] 09/05/2019 12:00:00 AM EDT eCW1 (Formerly [facility], 1928–1983) Finasteride 5 MG Oral Tablet [Proscar] 09/05/2019 12:00:00 AM EDT eCW1 (Formerly [facility], 1928–1983) Finasteride 5 MG Oral Tablet [Proscar] 09/05/2019 12:00:00 AM EDT eCW1 (Formerly [facility], 1928–1983) Finasteride 5 MG Oral Tablet [Proscar] 09/05/2019 12:00:00 AM EDT eCW1 (Formerly [facility], 1928–1983) Citalopram 40 MG Oral Tablet [Celexa] 04/17/2019 12:00:00 AM EST eCW1 (Formerly [facility], 1928–1983) Celexa 40 MG 04/17/2019 12:00:00 AM EST e CW1 (Formerly [facility], 1928–1983)
[2020-05-02] MEDS: ENOXAPARIN 40MG/0.4ML SYRINGE (J1650 PER 10MG) SC SCH ×2 (06:48→19:19)
[2020-05-02] MEDS ORDERED: ONDANSETRON 4MG/2ML VIAL IV PRN (07:15)
[2020-05-02] MEDS ORDERED: HYDROCORTISONE 100 MG/2 ML VIAL (J1720 PER 1) IV ONE (08:00)
[2020-05-02] MEDS ORDERED: NS 1,000 ML IV ONE (08:00)
[2020-05-02] MEDS ORDERED: D5W/0.9% SODIUM CHLORIDE 1,000 ML IV SCH (08:00)
[2020-05-02 08:26] LABS: BLOOD UREA NITROGEN 19 MG/DL (7-18); CALCIUM LEVEL 8.5 MG/DL (8.8-10.2); CARBON DIOXIDE LEVEL 22 MEQ/L (21-32); CHLORIDE LEVEL 101 MEQ/L (98-107); CREATININE FOR GFR 1.35 MG/DL (0.70-1.30); GLOMERULAR FILTRATION RATE 57.4 (>49); GLUCOSE, FASTING 205 MG/DL (70-100); POTASSIUM SERUM 4.4 MEQ/L (3.5-5.1); SODIUM LEVEL 136 MEQ/L (136-145); TROPONIN I < 0.02 NG/ML (< 0.10)
[2020-05-02] MEDS: PANTOPRAZOLE 40MG TAB (PROTONIX) PO SCH ×2 (08:34→20:39)
[2020-05-02] MEDS: PYRIDOSTIGMINE 60 MG TAB PO SCH (08:34)
[2020-05-02] MEDS: CLOPIDOGREL 75 MG TAB PO SCH (08:34)
[2020-05-02] MEDS: ATORVASTATIN 20 MG TAB PO SCH (08:34)
[2020-05-02] MEDS: GABAPENTIN 300 MG CAP PO SCH ×2 (08:34→20:39)
[2020-05-02] MEDS: ASPIRIN 81 MG ENTERIC TAB PO SCH (08:34)
[2020-05-02] MEDS: CitaloPRAM (CeleXA) 20 MG TAB PO SCH (08:34)
[2020-05-02] MEDS: BRIMONIDINE 0.1% OPHTH SOLN 5 ML OS SCH ×2 (08:35→20:39)
[2020-05-02] MEDS: FINASTERIDE 5 MG TAB PO SCH (08:35)
--- NOTE | 2020-05-02 08:57 | ECGEPIP ---
[facility] - ED Test Date: 2020-05-02 Pat Name: SEBASTIEN GARCIA Department: Room: [place] [address] Gender: Male Director Executive Communications: EDUARDO : 1960 Requested By: EDUARDO Gates Order Number: [id number] Reading MD: Lorie Garcia Measurements Intervals [place] Rate: 97 P: 66 VT: 127 QRS: 36 QRSD: 86 T: 53 QT: 319 QTc: 407 Interpretive Statements SINUS RHYTHM NONSPECIFIC T-WAVE ABNORMALITY similar 04/12/20 Electronically Signed on 05-02-2020 8:57:38 EST by Lorie Garcia
[2020-05-02] MEDS ORDERED: ASPIRIN 81 MG ENTERIC TAB PO SCH (09:00)
[2020-05-02] MEDS ORDERED: MAG SULF 1GM/100ML (MAG RUN) 1 GM in IV 1 EA IV ONE (09:00)
[2020-05-02] MEDS ORDERED: predniSONE 5 MG TAB PO SCH (09:00)
[2020-05-02] MEDS ORDERED: predniSONE 1 MG TAB PO SCH (09:00)
[2020-05-02] MEDS ORDERED: VANCOMYCIN HCL 750 MG, VIAL MATE ADAPTER 1 EACH in D5W 250 ML IV SCH (09:00)
[2020-05-02] MEDS ORDERED: HumaLOG INSULIN (NovoLOG) PER UNIT SC SCH (17:30)
--- NOTE | 2020-05-02 17:58 | IPNPDOC ---
Subjective Date Seen The patient was seen on 05/02/20. Subjective Chief Complaint/HPI Feels very weak and tired, nausea, vomiting , poor appetite and cannot keep any food down so his sugars keep dropping at home . His is on insulin pump. Objective Physical Examination General Exam: Positive: Alert, Cooperative, No Acute Distress Eye Exam: Positive: PERRLA, Conjunctiva & lids normal, EOMI; Negative: Sclera icteric ENT Exam: Positive: Atraumatic, Mucous membr. moist/pink, Pharynx Normal Neck Exam: Positive: Supple; Negative: JVD, thyromegaly Chest Exam: Positive: Clear to auscultation, Normal air movement Heart Exam: Positive: Rate Normal, Regular Rhythm, Normal S1, Normal S2, Murmurs (systolic murmur); Negative: Rubs Abdomen Exam: Positive: Normal bowel sounds, Soft; Negative: Tenderness, Hepatospenomegaly Extremity Exam: Positive: Clubbing, Other (bilateral BKA. right stump new with stitches still in it. ); Negative: Edema Skin Exam: Positive: Other skin issue (the skin around the incision of the right stump slightly red but not tender or warm. 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 He was sent home with xyvox which he reports that he has finished. He has been feeling sick for 1 week, tired, malaise, poor appetite, nausea, vomiting , could not keep much food down and diarrhea watery 2 episodes. He went o PMD on 04/29/20 and was found to have COVID. Yesterday his sugars dropped. He disconnected his insulin pump and tried to take oral juice to bring it up however it still remained low so he called the Ambulance. EMS found his sugars to be at 39 so he was brought to the ED. On admission it was felt that he has sepsis 2/2 right stump cellulitis and adrenal crisis with COVID infection so was started on vanco and cefazolin and given hydrocortisone 100 mg. I do not think his stump is infected. The incision is well healed though has stitched in place. There is some erythema around the stump end but it is not warm or tender. His WBC is not elevated, no fever. Hypoglycemia Likely from poor oral intake due to COVID infection Sugars corrected after dextrose infusion. will put on regular diet FS AC and HS. Will restart the pump when sugars corrected. No stump infection or sepsis. will stop antibiotics. COVID infection diagnosed in 04/29/20 no hypoxia. will continue to monitor. ADRENAL INSUFFICIENCY: At home on PREDNISONE TO 8 MG, Supposed to be on Fludrocortisone 0.1 mg also but i do not see that on his medication list. will increase prednisone to cover for the stress of infection to 20 mg daily. DM w Neuropathy The patient has an insulin pump which he disconnected when he became hypoglycemic regular diet, FS Ac and HS. continue gabapentin. Chronic Anemia hh stable Peripheral vascular disease ASA/plavix Hypomagnesemia replaced Glaucoma Bimatoprost, Brimonidine BPH/hx urinary retention Finasteride and tamsulosin Orthostatic hypotension/Shydrager syndrome continue pyridostigmine. Depression celexa HLD statin. Plan/VTE VTE Prophylaxis Ordered?: Yes VS, I&O, 24H, Fishbone Vital Signs/I&O Vital Signs Date Time Temp Pulse Resp B/P (MAP) Pulse Ox O2 Delivery O2 Flow Rate FiO2 05/02/20 06:22 98.6 79 18 99/48 (65) 99 Room Air I&O- Last 24 Hours up to 6 AM 05/02/20 06:00 Intake Total 670 ml Balance 670 ml Laboratory Data 24H LABS Laboratory Tests 2 05/02/20 01:48: Bedside Glucose (Misc Panel) 64L 05/02/20 02:06: Immature Granulocyte % (Auto) 0.5, Neutrophils (%) (Auto) 79.6H, Lymphocytes (%) (Auto) 11.5L, Monocytes (%) (Auto) 8.3H, Eosinophils (%) (Auto) 0.0, Basophils (%) (Auto) 0.1, Neutrophils # (Auto) 6.1, Lymphocytes # (Auto) 0.9L, Monocytes # (Auto) 0.6, Eosinophils # (Auto) 0.0, Basophils # (Auto) 0.0, Nucleated Red Blood Cells % (auto) 0.0, Prothrombin Time 14.0, Prothromb Time International Ratio 1.06, Activated Partial Thromboplast Time 31.7, Fibrinogen 425, D-Dimer, Quantitative 2514.83H, Anion Gap 8, Glomerular Filtration Rate 59.4, Lactic Acid Level 2.2*H, Calcium Level 8.4L, Magnesium Level 1.5L, Iron Level 18L, Total Iron Binding Capacity 231L, Transferrin % Saturation 7.8L, Ferritin 249, Total Bilirubin 0.4, Direct Bilirubin 0.2, Aspartate Amino Transf (AST/SGOT) 45H, Alanine Aminotransferase (ALT/SGPT) 51, Alkaline Phosphatase 117, Lactate Dehydrogenase 233, Total Creatine Kinase 133, Troponin I < 0.02, C-Reactive Protein, Quantitative 7.02H, Total Protein 6.6, Albumin 3.1L, Albumin/Globulin Ratio 0.9, Coronavirus (COVID-19)(PCR) POSITIVEA, Influenza Type A (RT-PCR) NEGATIVE, Influenza Type B (RT-PCR) NEGATIVE, Respiratory Syncytial Virus (PCR) NEGATIVE 05/02/20 03:32: Bedside Glucose (Misc Panel) 131H 05/02/20 06:49: Bedside Glucose (Misc Panel) 182H 05/02/20 07:46: Anion Gap 13, Glomerular Filtration Rate 57.4, Lactic Acid Followup at 4 Hours 1.4, Calcium Level 8.5L, Troponin I < 0.02 CBC/BMP Laboratory Tests 05/02/20 02:06 05/02/20 07:46 Microbiology Microbiology 05/02/20 Blood Culture, Received Pending STANLEY ALONSO MD May 02, 2020 11:11
[2020-05-02] MEDS ORDERED: [UNRECOGNIZED DRUG - OTHER] XX SCH (19:45)
[2020-05-02] MEDS: TAMSULOSIN 0.4 MG CAP PO SCH (20:39)
[2020-05-03] VITALS (17 sets, daily range): BP systolic 102–175; BP diastolic 48–82; O2SAT 96–99
[2020-05-03] MEDS: ENOXAPARIN 40MG/0.4ML SYRINGE (J1650 PER 10MG) SC SCH ×2 (06:02→17:15)
[2020-05-03 07:43] LABS: BASO % 0.4 % (0.0-1.0); EOS % 0.4 % (0.0-3.0); LYMPH # 1.4 10^3/uL (1.5-5.0); LYMPH % 28.6 % (24.0-44.0); MEAN CORPUSCULAR HEMOGLOBIN 29.7 pg (27.0-33.0); MEAN CORPUSCULAR HGB CONC 33.3 g/dl (32.0-36.5); MEAN CORPUSCULAR VOLUME 89.1 fl (80.0-96.0); MONO # 0.5 10^3/uL (0.0-0.8); MONO % 9.5 % (0.0-5.0); NEUTROPHILS % 60.7 % (36.0-66.0); PLATELET COUNT, AUTOMATED 211 10^3/uL (150-450); RED BLOOD COUNT 3.03 10^6/uL (4.30-6.10); WHITE BLOOD COUNT 4.9 10^3/uL (4.0-10.0)
[2020-05-03 08:08] LABS: ALBUMIN 2.6 GM/DL (3.2-5.2); ALT/SGPT 50 U/L (12-78); BILIRUBIN,TOTAL 0.4 MG/DL (0.2-1.0); BLOOD UREA NITROGEN 17 MG/DL (7-18); C REACTIVE PROTEIN QUANTITATIV 8.55 MG/DL (0.00-0.30); CARBON DIOXIDE LEVEL 28 MEQ/L (21-32); CHLORIDE LEVEL 106 MEQ/L (98-107); CREATININE FOR GFR 0.97 MG/DL (0.70-1.30); FERRITIN 209 NG/ML (26-388); GLOMERULAR FILTRATION RATE > 60.0 (>49); GLUCOSE, FASTING 189 MG/DL (70-100); LDH LACTATE DEHYDROGENASE 210 U/L (87-241); MAGNESIUM LEVEL 1.9 MG/DL (1.8-2.4); POTASSIUM SERUM 4.4 MEQ/L (3.5-5.1); SODIUM LEVEL 139 MEQ/L (136-145); TOTAL PROTEIN 5.6 GM/DL (6.4-8.2)
[2020-05-03] MEDS: CLOPIDOGREL 75 MG TAB PO SCH (09:00)
[2020-05-03] MEDS: predniSONE 20 MG TAB PO SCH (09:00)
[2020-05-03] MEDS: PYRIDOSTIGMINE 60 MG TAB PO SCH (09:00)
[2020-05-03] MEDS: CitaloPRAM (CeleXA) 20 MG TAB PO SCH (09:00)
[2020-05-03] MEDS: GABAPENTIN 300 MG CAP PO SCH ×2 (09:00→20:29)
[2020-05-03] MEDS ORDERED: predniSONE 5 MG TAB PO SCH (09:00)
[2020-05-03] MEDS: ATORVASTATIN 20 MG TAB PO SCH (09:00)
[2020-05-03] MEDS: BRIMONIDINE 0.1% OPHTH SOLN 5 ML OS SCH ×2 (09:00→20:29)
[2020-05-03] MEDS ORDERED: HYDROCORTISONE 100 MG/2 ML VIAL (J1720 PER 1) IV SCH (09:00)
[2020-05-03] MEDS ORDERED: predniSONE 1 MG TAB PO SCH ×2 (09:00)
[2020-05-03] MEDS: FINASTERIDE 5 MG TAB PO SCH (09:00)
[2020-05-03] MEDS: PANTOPRAZOLE 40MG TAB (PROTONIX) PO SCH ×2 (09:00→20:29)
[2020-05-03] MEDS: ASPIRIN 81 MG ENTERIC TAB PO SCH (09:00)
[2020-05-03] MEDS ORDERED: FERROUS SULFATE 325MG TAB PO SCH (09:00)
--- NOTE | 2020-05-03 11:53 | IPNPDOC ---
Text Note Date of Service The patient was seen on 05/03/20. NOTE Subjective: Patient is a 59-year-old male with a PMHx of IDDM1 (on insulin pump), PAD s/p Bilateral BKA (most recent R BKA 03/2020), Adrenal insufficiency, Giant cell arteritis, Orthostatic hypotension, Shydrager syndrome, PAD who presented to the ER with malaise and diarrhea. Patient was at [facility] from 04/13/20 to 04/19/20 for an infection of the right stump. He was sent home with Linezolid, which he reports that he has finished. Patient had follow up with his primary care provider on 04/29/2020 after experiencing 1 week of malaise / weakness / diarrhea, and was found to be COVID19 positive. On 05/01 his blood sugar was noted to be low and he disconnected his insulin pump and tried to take oral juice to bring it up however it still remained low so he called the EMS. He was found to have a glucose of 39 so he was brought to the ED. Patient was admitted to the hospital service for further evaluation and treatment. Patient was seen and examined at the bedside. Currently patient denies any chest pain, shortness breath, palpitations, nausea, vomiting, abdominal pain, diarrhea, or discomfort with urination. Patient's bilateral lower extremity stumps appear to be clean without any signs of infection. Objective: Vitals (See below) General: Lying in bed, comfortable, AAOx3 HEENT: NC, AT CVS: RRR, +S1S2 Lungs: Fair air entry b/l, -w/r/r Abdomen: Soft, ND, NT Extremities: Bilateral BKA, - Calf tenderness Assessment and plan: Hypoglycemia - likely 2/2 poor oral intake 2/2 viral infection - Currently has had an episode of hypoglycemia that occurred at night - s/p Dextrose infusion - c/w Regular diet - Will continue glucose checks - Will resume pump when glucose improves Depression - Reported "thoughts of self harm" this morning by home health services at patient's mother's request - Currently patient does not report any suicidal ideation - Patient reports his mother is 80 years old and "she likely has dementia" and that he is "done with her in his life" - c/w Citalopram - Will start suicidal precautions and consult Psychiatry; case discussed with Dr. Zamudio Bilateral BKA - Recent R BKA (05/2019) - No signs of infection - s/p antibiotics COVID infection - COVID positive on 04/29/20 - Symptom onset 1 week prior to test - Currently is not hypoxic - Will continue to monitor Adrenal insufficiency - Patient regularly takes prednisone 8mg at home - Supposed to be on Fludrocortisone 0.1 mg; however is not on it - Prednisone dose was increased to cover for the stress of infection - Will continue with current dose and taper over 1 week back to home dose IDDM1 with Neuropathy, complicated with hypoglycemia - Insulin pump which he disconnected when he became hypoglycemic - Will resume insulin pump on discharge - c/w Gabapentin Chronic Anemia - Hg stable Peripheral vascular disease - c/w ASA 81, Plavix, Atorvastatin s/p Hypomagnesemia Glaucoma - c/w Bimatoprost, Brimonidine BPH; with history of urinary retention - c/w Finasteride / Tamsulosin Orthostatic hypotension / Shydrager syndrome - c/w Pyridostigmine DLP - c/w Atorvastatin and ASA 81 GI prophylaxis - c/w Protonix DVT prophylaxis - c/w Lovenox; weight based prophylactic dose Disposition: - Awaiting psychiatry evaluation VS,Linda, I+O VS, Linda, I+O Laboratory Tests 05/03/20 07:23 Vital Signs Date Time Temp Pulse Resp B/P (MAP) Pulse Ox O2 Delivery O2 Flow Rate FiO2 05/03/20 09:00 97 Room Air 05/03/20 08:00 98.3 70 16 167/70 (102) I&O- Last 24 Hours up to 6 AM 05/03/20 06:00 Intake Total 2535 ml Output Total 2075 ml Balance 460 ml JOAN POLK MD May 03, 2020 11:53
[2020-05-03 13:00] LABS: VITAMIN B12 LEVEL 732 PG/ML (247-911)
[2020-05-03 13:01] LABS: FOLATE 20.7 NG/ML (>5.4)
[2020-05-03] MEDS ORDERED: PRED5TA PO (16:44)
--- NOTE | 2020-05-03 17:57 | DS.PDOC ---
Discharge Summary General Date of Admission May 02, 2020 at 04:34 Date of Discharge 05/03/2020 Discharge Summary PROCEDURES PERFORMED DURING STAY: [None]. ADMITTING DIAGNOSES / DISCHARGE DIAGNOSES: Hypoglycemia - likely 2/2 poor oral intake 2/2 viral infection Depression Bilateral BKA COVID infection Adrenal insufficiency IDDM1 with Neuropathy, complicated with hypoglycemia s/p Acute kidney injury Chronic Anemia Peripheral vascular disease s/p Hypomagnesemia Glaucoma BPH; with history of urinary retention Orthostatic hypotension / Shydrager syndrome DLP GI prophylaxis DVT prophylaxis COMPLICATIONS/CHIEF COMPLAINT: Hypoglycemia HISTORY OF PRESENT ILLNESS: Patient is a 59-year-old male with a PMHx of IDDM1 (on insulin pump), PAD s/p Bilateral BKA (most recent R BKA 03/2020), Adrenal insufficiency, Giant cell arteritis, Orthostatic hypotension, Shydrager syndrome, PAD who presented to the ER with malaise and diarrhea. Patient was at [facility] from 04/13/20 to 04/19/20 for an infection of the right stump. He was sent home with Linezolid, which he reports that he has finished. Patient had follow up with his primary care provider on 04/29/2020 after experiencing 1 week of malaise / weakness / diarrhea, and was found to be COVID19 positive. On 05/01 his blood sugar was noted to be low and he disconnected his insulin pump and tried to take oral juice to bring it up however it still remained low so he called the EMS. He was found to have a glucose of 39 so he was brought to the ED. Patient was admitted to the hospital service for further evaluation and treatment. HOSPITAL COURSE: Hypoglycemia - likely 2/2 poor oral intake 2/2 viral infection - Currently has had an episode of hypoglycemia that occurred at night - No events since that point - s/p Dextrose infusion - c/w Regular diet - Glucose checks normal throughout the day - c/w insulin pump when glucose improves Depression - Reported "thoughts of self harm" this morning by home health services at patient's mother's request - Currently patient does not report any suicidal ideation - Patient reports his mother is 80 years old and "she likely has dementia" and that he is "done with her in my life" - c/w Citalopram - s/p Suicidal precautions - Evaluated by Psychiatry; Dr. Zamudio; cleared for DC Home with instructions to follow up with psychiatry as an outpatient Bilateral BKA - Recent R BKA (05/2019) - No signs of infection - s/p antibiotics COVID infection - COVID positive on 04/29/20 - Symptom onset 1 week prior to test - Currently is not hypoxic - Will continue to monitor Adrenal insufficiency - Patient regularly takes prednisone 8mg at home - Supposed to be on Fludrocortisone 0.1 mg; however is not on it - Prednisone dose was increased to cover for the stress of infection - Will continue with current dose and taper over 1 week back to home dose IDDM1 with Neuropathy, complicated with hypoglycemia - Insulin pump which he disconnected when he became hypoglycemic; however was restarted - Insulin pump resumed throughout the day; no hypoglycemic events - c/w Gabapentin s/p Acute kidney injury - s/p IV fluid hydration Chronic Anemia - Hg stable Peripheral vascular disease - c/w ASA 81, Plavix, Atorvastatin s/p Hypomagnesemia Glaucoma - c/w Bimatoprost, Brimonidine BPH; with history of urinary retention - c/w Finasteride / Tamsulosin Orthostatic hypotension / Shydrager syndrome - c/w Pyridostigmine DLP - c/w Atorvastatin and ASA 81 GI prophylaxis - c/w Protonix DVT prophylaxis - c/w Lovenox; weight based prophylactic dose DISCHARGE MEDICATIONS: Please see below. ALLERGIES: Please see below. PHYSICAL EXAMINATION ON DISCHARGE: Vitals (See below) General: Lying in bed, comfortable, AAOx3 HEENT: NC, AT CVS: RRR, +S1S2 Lungs: Fair air entry b/l, no evidence of wheezing, rhonchi or rales Abdomen: Soft, ND, NT Extremities: Bilateral BKA, - Calf tenderness LABORATORY DATA: Please see below. IMAGING: XR Tib/Fib 05/02: Unremarkable appearance of the amputation stump and the. CXR 05/02: No acute findings. ACTIVITY: [As tolerated]. DISCHARGE PLAN: Follow-up with Primary care provider, Endocrinology, and Psychiatry within the next 7 days Remain compliant with treatment plan and medications Return to the ER if you experience any problems DISPOSITION: Home DISCHARGE CONDITION: [Stable]. TIME SPENT ON DISCHARGE: 35 minutes. Vital Signs/I&Os Vital Signs Date Time Temp Pulse Resp B/P (MAP) Pulse Ox O2 Delivery O2 Flow Rate FiO2 05/03/20 16:45 98.6 80 18 102/48 (66) 98 Room Air I&O- Last 24 Hours up to 6 AM 05/03/20 05:59 Intake Total 2535 ml Output Total 2075 ml Balance 460 ml Laboratory Data Labs 24H Laboratory Tests 2 05/02/20 20:34: Bedside Glucose (Misc Panel) 252H 05/03/20 03:40: Bedside Glucose (Misc Panel) 35*L 05/03/20 03:55: Bedside Glucose Confirm (Misc) 36*L 05/03/20 04:42: Bedside Glucose (Misc Panel) 126H 05/03/20 06:04: Bedside Glucose (Misc Panel) 191H 05/03/20 07:23: Immature Granulocyte % (Auto) 0.4, Neutrophils (%) (Auto) 60.7, Lymphocytes (%) (Auto) 28.6, Monocytes (%) (Auto) 9.5H, Eosinophils (%) (Auto) 0.4, Basophils (%) (Auto) 0.4, Neutrophils # (Auto) 3.0, Lymphocytes # (Auto) 1.4L, Monocytes # (Auto) 0.5, Eosinophils # (Auto) 0.0, Basophils # (Auto) 0.0, Nucleated Red Blood Cells % (auto) 0.0, Fibrinogen 407, Anion Gap 5L, Glomerular Filtration Rate > 60.0, Calcium Level 8.0L, Magnesium Level 1.9, Ferritin 209, Total Bilirubin 0.4, Aspartate Amino Transf (AST/SGOT) 87H, Alanine Aminotransferase (ALT/SGPT) 50, Alkaline Phosphatase 103, Lactate Dehydrogenase 210, C-Reactive Protein, Quantitative 8.55H, Total Protein 5.6L, Albumin 2.6L, Albumin/Globulin Ratio 0.9 05/03/20 11:16: Bedside Glucose (Misc Panel) 262H 05/03/20 16:50: Bedside Glucose (Misc Panel) 159H CBC/BMP Laboratory Tests 05/03/20 07:23 FSBS Laboratory Tests Test 05/02/20 20:34 05/03/20 03:40 05/03/20 04:42 05/03/20 06:04 Range/Units Bedside Glucose (Misc Panel) 252 35 126 191 80-115 MG/DL Test 05/03/20 11:16 05/03/20 16:50 Range/Units Bedside Glucose (Misc Panel) 262 159 80-115 MG/DL Microbiology Microbiology 05/02/20 Blood Culture - Preliminary, Resulted No growth after 24 hours . All specim... Discharge Medications Scheduled Aspirin (Aspirin EC) 81 Mg Tablet.dr, 81 MG PO DAILY, (Reported) Atorvastatin Calcium (Atorvastatin Calcium) 40 Mg Tablet, 40 MG PO DAILY, (Reported) Bimatoprost (Lumigan) 0.01% 2.5ML Drops, 1 DROP OS QHS, (Reported) Brimonidine Tartrate (Alphagan P) 0.1% 5ML Drops, 1 DROP OS BID, (Reported) Citalopram Hydrobromide (Citalopram HBr) 40 Mg Tablet, 40 MG PO DAILY, (Reported) Clopidogrel Bisulfate (Plavix) 75 Mg Tablet, 75 MG PO DAILY, (Reported) Docusate Sodium (Dok) 100 Mg Tablet, 100 MG PO BID, (Reported) Ferrous Sulfate (Ferrous Sulfate) 325 Mg Tab, 325 MG PO QWEEK, (Reported) SUNDAY Finasteride (Finasteride) 5 Mg Tablet, 5 MG PO DAILY, (Reported) Gabapentin (Gabapentin) 300 Mg Capsule, 300 MG PO BID, (Reported) Insulin Human Lispro (Novolog) 100 Unit/1 Ml Vial, 1 DOSE SC ASDIRECTED, (Reported) UP TO 100 UNITS DAILY CONTINUOUS THROUGH INSULIN PUMP Multivitamins (Thera M Plus Tablet) 1 Each Tablet, 1 TAB PO DAILY, (Reported) Pantoprazole Sodium (Pantoprazole Sodium) 40 Mg Tablet.dr, 40 MG PO BID, (Reported) Prednisone (Prednisone) 5 Mg Tablet, 1 TAB PO ASDIRECTED 4 tab PO daily x 4 days, 3 tab po daily x 4 days, 2 tab po daily x 4 days, return to prior dose Psyllium Husk (Fiber) 0.52 Gm Capsule, 0.52 GM PO DAILY, (Reported) Pyridostigmine Minco (Pyridostigmine Minco) 60 Mg Tablet, 60 MG PO DAILY, (Reported) Tamsulosin HCl (Flomax) 0.4 Mg Capsule, 0.4 MG PO QHS, (Reported) Scheduled PRN Glucagon,Human Recombinant (Glucagon Emergency Kit) 1 Mg Vial, 1 MG IM ASDIRECTED PRN for LOW BLOOD SUGAR, (Reported) Tramadol HCl (Tramadol HCl) 50 Mg Tablet, 50 MG PO Q6H PRN for MODERATE PAIN (PS 5-7), (Reported) Allergies Coded Allergies: No Known Allergies (Unverified , 03/01/20) JOAN POLK MD May 03, 2020 17:57
[2020-05-03] MEDS: TAMSULOSIN 0.4 MG CAP PO SCH (20:29)
[2020-05-04] VITALS: BP 146/74
[2020-05-04 00:05] VITALS: O2SAT 99
[2020-05-04 04:00] VITALS: BP 138/64; O2SAT 98
[2020-05-04] MEDS: ENOXAPARIN 40MG/0.4ML SYRINGE (J1650 PER 10MG) SC SCH (05:40)
[2020-05-04 07:02] LABS: INR 0.93; PARTIAL THROMBOPLASTIN TIME 31.5 SECONDS (24.2-38.5); PROTHROMBIN TIME 12.7 SECONDS (12.5-14.3)
[2020-05-04 07:25] LABS: ALBUMIN 2.9 GM/DL (3.2-5.2); ALT/SGPT 90 U/L (12-78); BILIRUBIN,DIRECT 0.1 MG/DL (0.0-0.2); BILIRUBIN,TOTAL 0.5 MG/DL (0.2-1.0); CPK CREATINE PHOSPHOKINASE 183 U/L (39-308); FERRITIN 223 NG/ML (26-388); LDH LACTATE DEHYDROGENASE 243 U/L (87-241); NT-PRO BNP 825 PG/ML (<125); TOTAL PROTEIN 6.3 GM/DL (6.4-8.2); TROPONIN I < 0.02 NG/ML (< 0.10)
[2020-05-04 08:00] VITALS: BP 123/71; O2SAT 98
[2020-05-04] MEDS: FINASTERIDE 5 MG TAB PO SCH (09:13)
[2020-05-04] MEDS: ASPIRIN 81 MG ENTERIC TAB PO SCH (09:13)
[2020-05-04] MEDS: predniSONE 20 MG TAB PO SCH (09:14)
[2020-05-04] MEDS: PYRIDOSTIGMINE 60 MG TAB PO SCH (09:14)
[2020-05-04] MEDS: ATORVASTATIN 20 MG TAB PO SCH (09:14)
[2020-05-04] MEDS: BRIMONIDINE 0.1% OPHTH SOLN 5 ML OS SCH (09:14)
[2020-05-04] MEDS: PANTOPRAZOLE 40MG TAB (PROTONIX) PO SCH (09:14)
[2020-05-04] MEDS: CitaloPRAM (CeleXA) 20 MG TAB PO SCH (09:14)
[2020-05-04] MEDS: CLOPIDOGREL 75 MG TAB PO SCH (09:14)
[2020-05-04] MEDS: GABAPENTIN 300 MG CAP PO SCH (09:14)
[2020-05-04 12:00] VITALS: O2SAT 98
--- NOTE | 2020-05-04 13:29 | CR ---
CONSULTATION DATE: 05/03/2020 This is a video assessment with the patient in the presence of staff. Chart is reviewed and patient is interviewed. CHIEF COMPLAINT: Mother suggests he is suicidal. SUBJECTIVE: He is 59 years old, has multiple medical problems, type 1 diabetes mellitus. He is on an insulin pump. He has a history of temporal arteritis, renal insufficiency, bilateral below knee amputations. Last one done was apparently within the last couple of months. He says it was the right leg. He has had cataract surgery as well. Past history also suggests a brain tumor. I have been asked to see him. I was called by Dr. Kearney the hospitalist, as the patient has come in with hypoglycemia and somewhere along the line of his being seen, it was suggested that his mother had said that he may have made statements implying suicide. He is still on his own. He is COVID positive, has home health aides but they did not come since he has been COVID positive. He was diagnosed April 29. He was hospitalized as he had nausea, vomiting, and his glucose was low. Some concern regarding his medical state. He has been stabilized and the hospitalist has informed me that the patient is stable enough to go home but they want an assessment made through psychiatry. The patient says he has been doing fine mostly and when informed of concerns by his mother, he says he was made aware of this and was upset and says his mother "does this all the time." These are his words. He says she will frequently indicate to others that he has not been doing well, and then when he asks her, she denies it, having said any such thoughts. He says that it has been going on for a considerable portion of his life, in fact, since the age of 15 when he was diagnosed with diabetes and had felt at that time that he wanted to because of the diagnosis. He adamantly denies any thoughts of harming himself, says he loves life and that he felt to be fortunate being alive, particularly in this day and age with the pandemic. He says that has generally been his attitude. He acknowledges that at times he feels down but it is not sustained. He says in fact that it has not happened recently and that he has been feeling good. He says he avoids the news as it is generally disturbing, particularly with the pandemic. He says he does his own cooking, and that he looks after himself, essentially no major difficulties doing so all things considered. He says prior to all this, appetite has essentially been good. He maintains interest in general activities. He says he has acquaintances, keeps in touch with them, says generally he does not have close friends. He says he and his mother may argue at times but that he generally gets along well. He says he gets upset with her often for telling others or implying that he is not doing well when he is. He says he understands that she may do it out of concern for him but he tends to ignore it. He feels his mother's health, he implies her cognition is deteriorating. He suggests he has mentioned to a sibling but does not seem to think so. PAST PSYCHIATRIC HISTORY: None formally. He is not aware of any inpatient hospitalizations or suicide attempts. He says he had thought of harming himself when he was 15 but did not. MEDICAL HISTORY: As indicated above. SUBSTANCE ABUSE HISTORY: None significant as far as I am aware. It should also be noted an MRI of the brain done March 2020 indicated small vessel atherosclerotic changes. SOCIAL HISTORY: He lives on his own. He says he has assistance in terms of home health aides but none now given the COVID diagnosis. He suggests he had called his mother indicating he was not feeling well. He has an insulin pump. She had disconnected it and that she informed the ambulance. The latest suggested that he may have injected himself with insulin when he was 15 when he felt frustrated but has no such thoughts. MENTAL STATUS EXAM: He has fair hygiene. Sitting up in bed, mostly lying down. He is cooperative. There is no agitation, no psychomotor retardation. Speech normal in rate. He denies any suicidal thought or intent, no homicidal ideation or intent. Alert, oriented to time, place and person, does not appear to be internally preoccupied. Intellect average. No fluctuation of consciousness. Judgment is good. Insight is good overall. ASSESSMENT: 1. Adjustment disorder with anxiety. 2. COVID. 3. Diabetes mellitus. 4. Mother/son difficulties. He is coherent. No evidence of any psychosis. Denies any suicidal thoughts or intent. He is future oriented. RECOMMENDATIONS: 1. I would suggest to continue current care and optimize it. 2. There is no evidence of his being in imminent danger to himself or others at present given this evaluation. 3. Difficulties between him and his mother which may be longstanding in terms of his mother's fears since the patient has been diagnosed at a young age with diabetes mellitus , this clashing with the patient's independence adds to thoughts of frustration at times. This may lead to differences in communication as well. 4. Would suggest this be explored if possible from the context of counseling which can be organized in an outpatient setting. No indication for the patient to remain in the hospital from a psychiatric standpoint at present. Thank you for the consult. If you have any questions, please call. The assessment took 40 minutes.
--- NOTE | 2020-05-04 14:55 | IPNPDOC ---
Date Seen The patient was seen on 05/04/20. Progress Note SUBJECTIVE: Patient is a -year-old [RACE] [GENDER] with OBJECTIVE PHYSICAL EXAMINATION: VITAL SIGNS: Please see below. GENERAL: HEENT: CARDIOVASCULAR: . RESPIRATORY: . ABDOMINAL: EXTREMITIES: NEUROLOGICAL: PSYCHOLOGICAL: LABORATORY DATA, IMAGING STUDIES, MICROBIOLOGY: Please see below. Echocardiogram: . DVT prophylaxis ordered?: ASSESSMENT AND PLAN: This is a -year-old [RACE] [GENDER] with . PROBLEMS: 1. : . 2. : . 3. : . DISPOSITION: . VS, I&O, 24H, Fishbone Vital Signs/I&O Vital Signs Date Time Temp Pulse Resp B/P (MAP) Pulse Ox O2 Delivery O2 Flow Rate FiO2 05/04/20 12:00 98 Room Air 05/04/20 08:00 123/71 (88) 05/04/20 04:00 98.1 72 18 I&O- Last 24 Hours up to 6 AM 05/04/20 06:00 Intake Total 1570 ml Output Total 1850 ml Balance -280 ml Laboratory Data 24H LABS Laboratory Tests 2 05/03/20 16:50: Bedside Glucose (Misc Panel) 159H 05/03/20 20:28: Bedside Glucose (Misc Panel) 238H 05/03/20 23:34: Bedside Glucose (Misc Panel) 97 05/04/20 04:09: Bedside Glucose (Misc Panel) 231H 05/04/20 05:34: Prothrombin Time 12.7, Prothromb Time International Ratio 0.93, Activated Partial Thromboplast Time 31.5, Fibrinogen 331, Ferritin 223, Total Bilirubin 0.5, Direct Bilirubin 0.1, Aspartate Amino Transf (AST/SGOT) 107H, Alanine Aminotransferase (ALT/SGPT) 90H, Alkaline Phosphatase 130H, Lactate Dehydrogenase 243H, Total Creatine Kinase 183, Troponin I < 0.02, MT-Vlq-D-Type Natriuretic Peptide 825H, Total Protein 6.3L, Albumin 2.9L, Albumin/Globulin Ratio 0.9, Procalcitonin 24.17 05/04/20 07:35: Bedside Glucose (Misc Panel) 94 05/04/20 11:32: Bedside Glucose (Misc Panel) 241H Microbiology Microbiology 05/02/20 Blood Culture - Preliminary, Resulted No Growth after 48 hours. All Specime... POLINKEVYCH,DOUG MD May 04, 2020 14:55
[2020-05-07 08:09] LABS: INTERLEUKIN 6 103.2 pg/mL (0.0-13.0); MYCOPLASMA PNEUMONIAE IgG 388 U/mL (0-99); MYCOPLASMA PNEUMONIAE IgM <770 U/mL (0-769)
== END 2020-05-04 15:14 | disposition home health service (06) | DRG 178 ==
LOC: M ED 01:32 → M ED INP 04:34 → M 4MAIN 06:22
PROVIDERS: ADMIT Internal Medicine; ATTEND Internal Medicine
DX: U07.1 COVID-19 (principal); E27.40 Unspecified adrenocortical insufficiency; N17.9 Acute kidney failure, unspecified; G90.3 Multi-system degeneration of the autonomic nervous system; E10.649 Type 1 diabetes mellitus with hypoglycemia without coma; F32.9 Major depressive disorder, single episode, unspecified; E83.42 Hypomagnesemia; E10.51 Type 1 diabetes mellitus with diabetic peripheral angiopathy without gangrene; Z89.511 Acquired absence of right leg below knee; Z89.512 Acquired absence of left leg below knee; H40.9 Unspecified glaucoma; N40.0 Benign prostatic hyperplasia without lower urinary tract symptoms; D64.9 Anemia, unspecified; Z79.82 Long term (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; Z79.4 Long term (current) use of insulin; Z79.899 Other long term (current) drug therapy

== ENCOUNTER 2020-05-07 15:49 | Emergency (ER) | payer MEDICARE, MEDICAID ==
[~2020-05-07 15:49] MED LIST changes: +DOK100TA2 PO; +LISI10TA22 PO; -LISI10TA4 PO; +METH-1164 PO; -METH1TAB40 PO; -TAMSULOSIN 0.4 MG CAP PO SCH
--- OUTSIDE RECORDS SUMMARY | 2020-05-07 17:05 | CCD ---
Author Author [facility] [employer] Organization [facility] [employer] [facility] Address Unknown Phone Unavailable Care Team Providers Care Customer Sales Specialist Name Role Phone Christelle Cook Unavailable PROBLEMS Type Condition ICD9-CM Code [id number] Code Onset Dates Condition S tatus W/U Status Risk SNOMED Code Notes Problem Bipolar 1 disorder F31.9 Active confirmed 3 62135383 Problem Autonomic instability G90.9 Active confirmed 74234901 Problem Adrenal insufficiency E27.40 Active confirmed 973579758 Problem Anemia of chronic disease D63.8 Active confirmed 702372755 Problem History of left below knee amputation Z89.512 Ac tive confirmed 499429592 Problem Cataract of both eyes, unspecified cataract type H 26.9 Active confirmed 40844513 Problem Chronic gastritis without bleeding, unspecified gastri tis type K29.50 Active confirmed 88208616 Problem Chronic obstructive pulmonary disease, unspecified COPD ty pe J44.9 Active confirmed 96974332 Problem PVD (peripheral vascular disease) I73.9 Active confirmed 651828541 Problem Type 1 diabetes mellitus with foot ulcer E10.621 Active confirmed 203583329777392 Problem 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 L97.519 Active confirmed Problem Type 1 diabetes mellitus with other specified complication E10.69 Active confirmed 68181608 Problem Acquired absence of right leg below knee Z89.511 Active confirmed 377560559 Problem 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 9 Active confirmed 9068692653123274 Problem Amputation below knee S88.119A Active confirmed 969082445 Problem Acquired absence of left leg below knee Z89.512 Active confirmed 341591174083608 ALLERGIES No Known Allergies ENCOUNTERS from 1960 to 2020-05-05 Encounter Location Date Provider Diagnosis [facility] [address] [place] [address] Apr, [facility] discharge follow-up Z09 ; Cellu litis of right leg L03.115 ; Exposure to COVID-19 virus Z20.822 ; Hypotension, unspecified hypotension type I95.9 ; Acquired absence of left leg below knee Z89.512 and Acquired absence of right leg below knee Z89.511 IMMUNIZATIONS Vaccine Route Administration Date Status Influenza [...] School Language: Question Answer Notes Languages spoken: Lao Anabaptist: Question Answer Notes Anabaptist 08 U[employer] Alcohol Screening: Question Answer Notes Did you [...] Apr, BMI 22.89 kg/m2 Apr, Heart Rate 89 /min Apr, Respiratory Rate 20 /min Apr, Temperature 98.7 degrees Fahrenheit Apr, Oximetry 97% Apr, Blood pressure systolic 91 mm Hg Apr, Blood pressure diastolic 42 mm Hg Apr, MEDICATIONS Medication SIG (Take, Route, Frequency, Duration) Notes Start Da te End Date Status Latanoprost 0.005 % 1 drop into affected eye in the evening Ophthalmic left eye Once a day July, Unknown Cephalexin 500 MG 1 capsule Orally three times a day Active Brimonidine Tartrate 0.1 % 1 drop into affected eye Ophthalmic ever y 8 hrs Unknown PredniSONE 5 MG 1 tablet Orally Once a day for 30 day(s) 0 July, Unknown Tramadol HCl 50 MG 1 tablet as needed Orally Once a day Unknown Levaquin 500 MG 1 tablet Orally Once a day for 10 day(s) Not-Taking Aspirin Adult Low Dose 81 MG 1 tablet Orally Once a day Unknown Celexa 40 MG 1 tab Orally Once a day for 90 day(s) Apr, Unknown Ferrous Sulfate 325 (65 Fe) MG 1 tablet Orally Once a day for 30 Unknown Misc. Devices - needs functioning left brake on wheelchair Mar, Unknown Lumigan Unknown Glucagon Emergency 1 MG Injection U nknown Pantoprazole Sodium 40 MG 1 tablet Orally bid Unknown Atorvastatin Calcium 40MG 1 tablet Orally Once a day for 90 day(s) Unknown Gabapentin 300 MG 1 cap Orally bid for 90 day(s) Unknown Insulin Syringe 31G X 5/16 as directed orally tid for 30 day(s) Sep, Unknown Mupirocin 2 % 1 application to affected ar ea Externally Three times a day for 5 day(s) Dec, Unknown Clopidogrel Bisulfate 75 MG 1 tablet Orally Once a day for 30 day(s) Unknown Proscar 5 MG 1 tablet Orally Once a day for 90 day(s) 2019 Unknown Sucralfate 1 GM 1 tablet on an empty stomach Orally before meals and HS July, Unknown Finasteride 5 MG 1 tablet Orally Once a day for 30 day(s) Unknown Plavix 75 MG 1 tablet Orally Once a day for 90 day(s) Unknown Acetaminophen 500 MG 1 tablet as needed Orally every 6 hrs prn p ain July, Unknown Wheelchair - as directed Jan, Unknown Hydrocodone-Acetaminophen 5-325 MG 1 tablet as needed Orally every 6 hrs Unknown Chlorhexidine Gluconate - as directed Unknown Misc. Devices - left bk replacement socket and supplies DX: Z89. 512 Dec, Unknown Collagenase 250 UNIT/GM 1 application Externally Once a day Unknown Proscar 5 MG 1 tablet Orally Once a day for 30 day(s) 19 S , 2018 Unknown Fludrocortisone Acetate 0.1 MG 1 tablet Orally Three times a Week for 30 day(s) Unknown Protonix 40 MG 1 tablet Orally bid July, Unknown NovoLog 100 UNIT/ML as directed Subcutaneous Ins ulin pump, pump up to 100 units daily July, Unknown Ketoconazole 2 % 1 application Externally Once a day Unknown PROCEDURES No Information RESULTS Component Value Reference Range [facility] COVID AG (Point of Care) Reviewed date:04/29/2020 12:42:44 Interpretation:Positive Performing Lab:[facility]ly [facility], [facility], [facility]ALS INTERFACE [address] [place] [address] , ,[place] [address] LYNNE COVID ANTIGEN POSITIVE NEGATIVE REASON FOR VISIT TCM/ACO [facility] D/C 04/19; CELLULITIS OF RIGHT LOWER EXTREMITY MEDICAL (GENERAL) HISTORY Type Description Date Medical [...] History right leg amputation 03/04/2020 Hospitalization History [facility] 10/2016 Hospitalization History hypoglycemia 12/02/2016-12/12/19 17 Hospitalization History autonomic instability 04/02/201707/2017 Hospitalization History hypergycemia 08/04/2019- 0 Hospitalization History leg amputation 03/04/2020 Goals Section No Information Health Concerns No Information MEDICAL EQUIPMENT No Information MENTAL STATUS No Information FUNCTIONAL STATUS No Information ASSESSMENTS Encounter Date Diagnosis Assessment Notes Treatment Notes Treatm ent Clinical Notes Apr, Hospital discharge follow-up (ICD-10 - Z09) Has been in the emergency room for 3 times last week for symptomatic hypoglycemia, most recently prompting an admission with concern for cellulitis of the right lower extremity. Today he has a known COVID positive exposure and is positive on rapid testing, I spent approximately 50 minutes reviewing his hospital records, and discussing with him his clinical condition, today he is hypotensive although completely asymptomatic. I did need to use an ear probe to get a pulse ox His wound looks clean without significant evidence of infection. Potential etiologies of his hypotension include adrenal crisis (he has not increased his steroids to a stress dose given his known infection) versus early sepsis either from bacterial or from COVID. He has significant vascular disease, adrenal suppression, COPD, autonomic instability. We extensively discussed the risks and benefits antibodies and how they are time-limited, should he develop more significant disease he would no longer be a candidate for these. We discussed his hypotension how this causes decreased perfusion which could lead to, coronary artery disease, stroke, and . I highly recommended that he go to the emergency room via ambulance, for further evaluation. He was adamantly opposed to this was able to teach back the specific concerns which prompted my recommendation and the risk of bad outcomes to include further disability and continued to be adamantly opposed to any further evaluation, she did not describe any evidence of depression or suicidal ideation, however rather he verbalized recognition that his disease is very significant and feels that aggressive interventions would likely be futile. He signed a AGAINST MEDICAL ADVICE form which was placed into his chart, we did discuss that he may benefit from stress dosing steroids at this point and he will take 5 of his 5 mg pills of prednisone (total 25 mg) for the next 3 days, I will notify home health that he is COVID positive and will check in with him tomorrow. I did verbalize extensively that I would encourage him to reconsider his decision and should he do so he should go via ambulance directly to the emergency room. Apr, Cellulitis of right leg (ICD-10 - L03.115) Apr, Exposure to COVID-19 virus (ICD-10 - Z20.822) Apr, Hypotension, unspecified hypotension type (ICD-1 0 - I95.9) Apr, Acquired absence of left leg below knee (ICD-10 - Z89.512) When he recovers from his current acutely decompensated state, I believe him to have the potential to be a K2 ambulator and recommend that he have a K2 appropriate prosthetic to maintain his independence and functional capabilities. Would plan a left transverse tibial PTB prosthesis, total contact, carbon acrylic, carbon composite, alignable system, to gel cushion liners, suspension sleeves, suction socket with expulsion valve, diagnostic socket, 9 prosthetic socks flexible keel, multiaxial foot. Apr, Acquired absence of right leg below knee (ICD-10 - Z89.511) PLAN OF TREATMENT Treatment Notes Assessment Notes Clinical Notes Hospital discharge follow-up Has been in the emergency room for 3 times last week for symptomatic hypoglycemia, most recently prompting an admission with concern for cellulitis of the right lower extremity. Today he has a known COVID positive exposure and is positive on rapid testing, I spent approximately 50 minutes reviewing his hospital records, and discussing with him his clinical condition, today he is hypotensive although completely asymptomatic. I did need to use an ear probe to get a pulse ox His wound looks clean without significant evidence of infection.Potential etiologies of his hypotension include adrenal crisis (he has not increased his steroids to a stress dose given his known infection) versus early sepsis either from bacterial or from COVID. He has significant vascular disease, adrenal suppression, COPD, autonomic instability. We extensively discussed the risks and benefits antibodies and how they are time-limited, should he develop more significant disease he would no longer be a candidate for these. We discussed his hypotension how this causes decreased perfusion which could lead to, coronary artery disease, stroke, and .I highly recommended that he go to the emergency room via ambulance, for further evaluation. He was adamantly opposed to this was able to teach back the specific concerns which prompted my recommendation and the risk of bad outcomes to include further disability and continued to be adamantly opposed to any further evaluation, she did not describe any evidence of depression or suicidal ideation, however rather he verbalized recognition that his disease is very significant and feels that aggressive interventions would likely be futile.He signed a AGAINST MEDICAL ADVICE form which was placed into his chart, we did discuss that he may benefit from stress dosing steroids at this point and he will take 5 of his 5 mg pills of prednisone (total 25 mg) for the next 3 days, I will notify home health that he is COVID positive and will check in with him tomorrow. I did verbalize extensively that I would encourage him to reconsider his decision and should he do so he should go via ambulance directly to the emergency room. Acquired absence of left leg below knee When he recovers from his current acutely decompensated state, I believe him to have the potential to be a K2 ambulator and recommend that he have a K2 appropriate prosthetic to maintain his independence and functional capabilities. Would plan a left transverse tibial PTB prosthesis, total contact, carbon acrylic, carbon composite, alignable system, to gel cushion liners, suspension sleeves, suction socket with expulsion valve, diagnostic socket, 9 prosthetic socks flexible keel, multiaxial foot. Treatment Notes Test Name Order Date Coronavirus 2019 NOSE (Send Out) COVID 2020-04-29 Next Appt Details follow-up via phone tomorrow Reason: Provider Name:Melani Daugherty, 2020-05 04:15:00 PM, [address], [place], [address], Provider Name:Christelle Cook, 2020-05-13 0 9:30:00 AM, [address] [place], [address], Insurance Providers Payer Name Payer Address Payer Phone Insured Name Patient Relati onship to Insured Coverage Start Date Coverage End Date MEDICARE COMPLETE [facility] [address] [address] [facility] [id number] SE[employer]ST[employer] GARCIA MEDICAID [facility] [address] [facility] [id number] SEBASTIEN GARCIA
--- OUTSIDE RECORDS SUMMARY | 2020-05-07 17:05 | CCD ---
Author Author [facility] [employer] [facility] Organization [facility] [employer] Address Unknown Phone Unavailable Care Team Providers Care Furniture Assembler Name Role Phone Christelle Cook Unavailable PROBLEMS Type Condition ICD9-CM Code [id number] Code Onset Dates Condition S tatus W/U Status Risk SNOMED Code Notes Problem Bipolar 1 disorder F31.9 Active confirmed 3 06530955 Problem Autonomic instability G90.9 Active confirmed 67332200 Problem Adrenal insufficiency E27.40 Active confirmed 210615290 Problem Anemia of chronic disease D63.8 Active confirmed 565935099 Problem History of left below knee amputation Z89.512 Ac tive confirmed 125268506 Problem Cataract of both eyes, unspecified cataract type H 26.9 Active confirmed 69072769 Problem Chronic gastritis without bleeding, unspecified gastri tis type K29.50 Active confirmed 63794210 Problem Chronic obstructive pulmonary disease, unspecified COPD ty pe J44.9 Active confirmed 52367148 Problem PVD (peripheral vascular disease) I73.9 Active confirmed 652120684 Problem Type 1 diabetes mellitus with foot ulcer E10.621 Active confirmed 177824174708199 Problem 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 L97.519 Active confirmed Problem Type 1 diabetes mellitus with other specified complication E10.69 Active confirmed 99429196 Problem Acquired absence of right leg below knee Z89.511 Active confirmed 019029050 Problem 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 9 Active confirmed 2423375048199211 Problem Amputation below knee S88.119A Active confirmed 772184496 Problem Acquired absence of left leg below knee Z89.512 Active confirmed 243540545868885 ALLERGIES No Known Allergies ENCOUNTERS from 1960 to 2020-05-05 Encounter Location Date Provider Diagnosis [facility] [address] [place] [address], Christelle Cook IMMUNIZATIONS Vaccine Route Administration [...] School Language: Question Answer Notes Languages spoken: Kyrgyz Rastafarian: Question Answer Notes Rastafarian 08 Buddhist Alcohol Screening: Question Answer Notes Did you [...] Once a day for 30 day(s) 2018 Unknown Fludrocortisone Acetate 0.1 MG 1 tablet Orally Three times a Week for 30 day(s) Unknown Protonix 40 MG 1 tablet Orally bid July, Unknown NovoLog 100 UNIT/ML as directed Subcutaneous Ins ulin pump, pump up to 100 units daily July, Unknown Ketoconazole 2 % 1 application Externally Once a day Unknown PROCEDURES No Information RESULTS No Results REASON FOR VISIT follow up MEDICAL (GENERAL) HISTORY Type Description Date Medical [...] PLAN OF TREATMENT Next Appt Details Provider Name:Melani Daugherty, 2020-05 04:15:00 PM, [address], [place], [address], Provider Name:Christelle Cook, 2020-05-13 0 9:30:00 AM, [address] [place], [address], Insurance Providers Payer Name Payer Address Payer Phone Insured Name Patient Relati onship to Insured Coverage Start Date Coverage End Date MEDICAID [employer] [address] [facility] [id number] [place] MEDICARE COMPLETE [facility] [address] [address] [facility] [id number] SEBASTIEN GARCIA
--- OUTSIDE RECORDS SUMMARY | 2020-05-07 17:07 | CCD ---
Author Author [facility] Organization [facility] Address Unknown Phone Unavailable Care Team Providers Care Batch Room Technician Name Role Phone Hanna Boss MD Unavailable [...] Unavailable Michelle SARABIA MD Unavailable Unavailable Michelle SARBAIA MD Unavailable Unavailable Michelle SARABIA MD Unavailable [...] is protected by Article 27-F of the [facility] Public Health law. If you continue you may have access to information: Regarding HIV / AIDS; Provided by facilities licensed or operated by the [facility] Office of Mental Health; or Provided by the [facility] Office for People With Developmental Disabilities. If such information is present, then the following [facility] mandated warning applies: This information has been [...] law may result in a fine or snf sentence or both. A general authorization for the release of medical or other information is NOT sufficient authorization for further disc losure. Family History Family Member Name Family Member Gender Family Member Status Date o f Status Description Data Source(s) Unknown Unknown Problem [facility] father Encounters Encounter Providers Location Date Indications Data Source(s ) Unknown [address] [facility] [address] 04/30/2020 12:00:00 AM EST eCW1 ([facility]) (TCM) Transition of Care Visit [address] [place] [address] 04/29/2020 12:00:00 AM EST eCW1 ([facility]) Unknown [address] [facility] [address] 04/29/2020 12:00:00 AM EST eCW1 ([facility]) [place] [address] [facility] [address] 04/28/2020 12:00:00 AM EST eCW1 ([facility]) [place] [address] [facility] [address] 04/26/2020 12:00:00 AM EST eCW1 ([facility]) [place] [address] [facility] [address] 04/23/2020 12:00:00 AM EST eCW1 ([facility]) [place] [address] [facility] [address] 04/22/2020 12:00:00 AM EST eCW1 ([facility]) [place] [address] [facility] [place] [address] 04/21/2020 12:00:00 AM EST eCW1 ([facility]) Outpatient [address] [facility] [address] 04/06/2020 12:00:00 AM EST eCW1 ([facility]) Office Visit Attender: Florencia Mcnair/Анна/Oneida mcdowell 04/05/2020 08:15:00 AM EST MED[facility] ([facility]) [place] [address] [facility] [address] 03/31/2020 12:00:00 AM EST eCW1 ([facility]) [place] [address] [facility] [address] 03/31/2020 12:00:00 AM EST eCW1 ([facility]) Unknown [address] [facility] [place] [address] 03/29/2020 12:00:00 AM EST eCW1 ([facility]) Unknown [address] [facility] [place] [address] 03/24/2020 12:00:00 AM EST eCW1 ([facility]) Unknown [address] [facility] [address] 03/10/2020 12:00:00 AM EST eCW1 ([facility]) Outpatient Attender: Alex Kuhn MD CPSCAORT-CPSCAEND 03/02 02:32:00 PM EST - 03/02/2020 02:33:00 PM EST E10.65 [facility] E10.65 Patient discharged. Unknown [address] [facility] [address] 03/01/2020 12:00:00 AM EST eCW1 ([facility]) Outpatient Attender: Kathy Mcnair/Анна/Indra/ Talon 02/23/2020 12:30:00 PM EST MEDENT ([facility]) ([id number]) For Template Wright [address] [place] [address] 02/23/2020 12:00:00 AM EST eCW1 ([facility]) Unknown [address] [facility] [address] 02/20/2020 12:00:00 AM EST eCW1 ([facility]) Office Visit, Est Pt., Level 2 FC [address] [place] [address] 02/19/2020 12:00:00 AM EST eCW1 ([facility]) Unknown [address] [facility] [address] 02/19/2020 12:00:00 AM EST eCW1 ([facility]) Office Visit Attender: MOOSE CHAPA [facility] Office 01/31 12:00:00 PM EST MEDENT ([facility] Unknown [address] [facility] [address] 02/18/2020 12:00:00 AM EST [facility]) Unknown [address] [facility] [address] 02/10/2020 12:00:00 AM EST eCW1 ([facility]) Outpatient [address] [facility] [address] 02/09/2020 12:00:00 AM EST [facility]CW1 [facility] [address] [facility] [place] [address] 02/04/2020 12:00:00 AM EST [facility]CW1 [facility]) Office Visit Attender: MOOSE CHAPA [facility] Office 05/2019 01:45:00 PM EST MEDENT ([facility] Unknown [address] [facility] Y [address] 01/26/2020 12:00:00 AM EDT eCW1 ([facility]) Outpatient Attender: MOOSE CHAPA [facility] Office 01/01 02:30:00 PM EDT MEDENT ([facility] Outpatient Attender: Florencia Lancasterang/[place]/Indra/R eindl 01/20/2020 11:30:00 AM EDT MED[facility] ([facility]) Outpatient [address] [facility] [address] 01/19/2020 12:00:00 AM EDT [facility]CW1 [facility] ([id number]) For Template [employer] [address] [place] [address] 01/09/2020 12:00:00 AM EDT eCW1 ([facility]) Unknown [address] [facility] [address] 01/01/2020 12:00:00 AM EDT [facility]CW1 [facility] Unknown [address] [facility] [address] 12/30/2019 12:00:00 AM EDT [facility]CW1 [facility] Outpatient Attender: Florencia Dumont RPA Xu/[place]/Indra/R eindl 12/17/2019 09:00:00 AM EDT MEDENT ([facility]) Outpatient Attender: Alex Kuhn MD CPSCAORT-CPSCAEND 11/30 02:51:00 PM EDT - 12/01/2019 02:52:00 PM EDT E10.65 [facility] E10.65 Patient discharged. Outpatient Attender: DILSHAD Mcnair/[place]/Ang el/Reindl 11/05/2019 11:30:00 AM EDT MEDENT ([facility]) Outpatient Attender: RAISA Mcnair/[place]/Indra/ Reindl 11/04/2019 11:20:00 AM EDT MEDENT ([facility]) Outpatient Attender: Florencia Dumont RPA Xu/[place]/Indra/R eindl 10/16/2019 10:00:00 AM EDT MED[facility] ([facility]) [place] [address] [facility] [address] 10/16/2019 12:00:00 AM EDT [facility]CW1 [facility] Outpatient Attender: RAISA Mcnair/[place]/Indra/ Reindl 10/07/2019 11:20:00 AM EDT MEDENT ([facility]) Outpatient Attender: Florencia Dumont RPA Xu/[place]/Indra/R eindl 09/25/2019 01:30:00 PM EDT MEDENT ([facility]) Outpatient Attender: Florencia Dumont RPA Xu/[place]/Indra/R eindl 09/24/2019 10:00:00 AM EDT MED[facility] ([facility]) [place]patient [address] [facility] [address] 09/18/2019 12:00:00 AM EDT [facility]CW1 [facility] [place] [address] [facility] [place] [address] 09/12/2019 12:00:00 AM EDT [facility]CW1 [facility] Outpatient Attender: RAISA Mcnair/[place]/Indra/ Talon 09/09/2019 11:35:00 AM EDT MEDENT ([facility] [place] [address] [facility] [address] 09/05/2019 12:00:00 AM EDT eCW1 ([facility]) Unknown [address] [facility] [address] 09/03/2019 12:00:00 AM EDT eCW1 ([facility]) Outpatient 08/28/2019 09:03:00 AM EDT [facility] Unknown [address] [facility] [address] 08/26/2019 12:00:00 AM EDT eCW1 ([facility]) Outpatient Attender: Alex Kuhn MD CPSCAORT-CPSCAEND 08/19 02:44:00 PM EDT - 08/20/2019 02:45:00 PM EDT [facility] [address] [facility] [address] 08/20/2019 12:00:00 AM EDT eCW1 ([facility]) [facility] [address] [facility] [place] [address] 08/19/2019 12:00:00 AM EDT eCW1 ([facility]) [facility] [address] [facility] [address] 08/19/2019 12:00:00 AM EDT eCW1 ([facility]) Outpatient 08/13/2019 02:22:00 PM EDT [facility] LeRmaria alejandra [address] [facility] [address] 08/12/2019 12:00:00 AM EDT eCW1 [facility]) [facility] [address] [facility] [place] [address] 08/07/2019 12:00:00 AM EDT eCW1 [facility]) [facility] [address] [facility] [place] [address] 08/05/2019 12:00:00 AM EDT eCW1 ([facility]) [facility] [place] [address] [facility] [address] 08/04/2019 12:00:00 AM EDT eCW1 ([facility]) [facility] [address] [place] [address] 06/25/2019 12:00:00 AM EDT eCW1 ([facility]) [facility] [address] [facility] [address] 06/19/2019 12:00:00 AM EDT eCW1 ([facility]) [facility] Dermatology [address] [place] [address] 06/18/2019 12:00:00 AM EDT eCW1 ([facility]) [facility] Dermatology [address] [place] [address] 06/06/2019 12:00:00 AM EST eCW1 ([facility]) [facility] [address] [place] [address], [place] [address] 04/30/2019 12:00:00 AM EST eCW1 ([facility]) Outpatient Attender: Alex Kuhn MD CPSCAORT-CPSCAEND 04/24 03:04:00 PM EST - 04/24/2019 03:05:00 PM EST E10.65 [facility] E10.65 [facility]. [facility] [address] [facility] [place] [address] 04/22/2019 12:00:00 AM EST eCW1 ([facility]) [facility] [address] [facility] [address] 04/15/2019 12:00:00 AM EST eCW1 ([facility]) [facility] [address] [facility] [address] 04/07/2019 12:00:00 AM EST eCW1 ([facility]) Outpatient Attender: Alex Kuhn MD CPSCAORT-CPSCAEND 01/14 02:06:00 PM EDT - 01/14/2019 02:07:00 PM EDT E10.65 [facility] E10.65 Patient discharged. Medications Medication Brand Name Start Date Product Form Dose Route Admi nistrative Instructions Pharmacy Instructions Status Indications Reaction Description Data Source(s) Misc. Devices - UNK 03/11/2020 12:00:00 AM EST active Misc. Devices - eCW1 ([facility]) Misc. Devices - UNK 03/11/2020 12:00:00 AM EST active Misc. Devices - eCW1 ([facility]) Misc. Devices - UNK 03/11/2020 12:00:00 AM EST active Misc. Devices - eCW1 ([facility]) Misc. Devices - UNK 03/11/2020 12:00:00 AM EST active Misc. Devices - eCW1 ([facility]) Misc. Devices - UNK 03/11/2020 12:00:00 AM EST active Misc. Devices - eCW1 ([facility]) Misc. Devices - UNK 03/11/2020 12:00:00 AM EST active Misc. Devices - eCW1 ([facility]) Misc. Devices - UNK 03/11/2020 12:00:00 AM EST active Misc. Devices - eCW1 ([facility]) Misc. Devices - UNK 03/11/2020 12:00:00 AM EST active Misc. Devices - eCW1 ([facility]) Misc. Devices - UNK 03/11/2020 12:00:00 AM EST active Misc. Devices - eCW1 ([facility]) Misc. Devices - UNK 03/11/2020 12:00:00 AM EST active Misc. Devices - eCW1 ([facility]) Misc. Devices - UNK 03/11/2020 12:00:00 AM EST active Misc. Devices - eCW1 ([facility]) Misc. Devices - UNK 03/11/2020 12:00:00 AM EST active Misc. Devices - eCW1 ([facility]) Misc. Devices - UNK 03/11/2020 12:00:00 AM EST active Misc. Devices - eCW1 ([facility]) Misc. Devices - UNK 03/11/2020 12:00:00 AM EST active Misc. Devices - eCW1 ([facility]) Misc. Devices - UNK 03/11/2020 12:00:00 AM EST active Misc. Devices - eCW1 ([facility]) Wheelchair - Wheelchair - 02/24/2020 12:00:00 AM EST active Wheelchair - eCW1 ([facility]) Wheelchair - Wheelchair - 02/24/2020 12:00:00 AM EST active Wheelchair - eCW1 ([facility]) Wheelchair - Wheelchair - 02/24/2020 12:00:00 AM EST active Wheelchair - eCW1 ([facility]) Wheelchair - Wheelchair - 02/24/2020 12:00:00 AM EST active Wheelchair - eCW1 ([facility]) Wheelchair - Wheelchair - 02/24/2020 12:00:00 AM EST active Wheelchair - eCW1 ([facility]) Wheelchair - Wheelchair - 02/24/2020 12:00:00 AM EST active Wheelchair - eCW1 ([facility]) Wheelchair - Wheelchair - 02/24/2020 12:00:00 AM EST active Wheelchair - eCW1 ([facility]) Wheelchair - Wheelchair - 02/24/2020 12:00:00 AM EST active Wheelchair - eCW1 ([facility]) Wheelchair - Wheelchair - 02/24/2020 12:00:00 AM EST active Wheelchair - eCW1 ([facility]) Wheelchair - Wheelchair - 02/24/2020 12:00:00 AM EST active Wheelchair - eCW1 ([facility]) Wheelchair - Wheelchair - 02/24/2020 12:00:00 AM EST active Wheelchair - eCW1 ([facility]) Wheelchair - Wheelchair - 02/24/2020 12:00:00 AM EST active Wheelchair - eCW1 ([facility]) Wheelchair - Wheelchair - 02/24/2020 12:00:00 AM EST active Wheelchair - eCW1 ([facility]) Wheelchair - Wheelchair - 02/24/2020 12:00:00 AM EST active Wheelchair - eCW1 ([facility]) Wheelchair - Wheelchair - 02/24/2020 12:00:00 AM EST active Wheelchair - eCW1 ([facility]) Wheelchair - Wheelchair - 02/24/2020 12:00:00 AM EST active Wheelchair - eCW1 ([facility]) Wheelchair - Wheelchair - 02/24/2020 12:00:00 AM EST active Wheelchair - eCW1 ([facility]) Wheelchair - Wheelchair - 02/24/2020 12:00:00 AM EST active Wheelchair - eCW1 ([facility]) Cephalexin 500 MG Oral Capsule Cephalexin 02/02/2020 12:00:00 AM EST ORAL active [facility] ([facility] tramadol hydrochloride 50 MG Oral Tablet Tramadol HCL 02/02/2020 12:00:00 AM EST active [facility] Sucralfate 100 MG/ML Oral Suspension Sucralfate 10/23/2019 12:00:00 A M EDT ORAL active MEDENT ([facility], ) pantoprazole 40 MG Delayed Release Oral Tablet Pantoprazole Sodium 10/07/2019 12:00:00 AM EDT active M EDENT ([facility], ) Finasteride 5 MG Oral Tablet [Proscar] Proscar 5 MG Proscar 5 MG 09/05/2019 12:00:00 AM EDT 1.0 {tablet} suspended Proscar 5 MG eCW1 ([facility]) Finasteride 5 MG Oral Tablet [Proscar] Proscar 5 MG Proscar 5 MG 09/05/2019 12:00:00 AM EDT 1.0 {tablet} active Pr cassidy 5 MG eCW1 ([facility]) Finasteride 5 MG Oral Tablet [Proscar] Proscar 5 MG Proscar 5 MG 09/05/2019 12:00:00 AM EDT 1.0 {tablet} active Pr cassidy 5 MG eCW1 ([facility]) Finasteride 5 MG Oral Tablet [Proscar] Proscar 5 MG Proscar 5 MG 09/05/2019 12:00:00 AM EDT 1.0 {tablet} suspended Proscar 5 MG eCW1 ([facility]) Finasteride 5 MG Oral Tablet [Proscar] Proscar 5 MG Proscar 5 MG 09/05/2019 12:00:00 AM EDT 1.0 {tablet} suspended Proscar 5 MG eCW1 ([facility]) Finasteride 5 MG Oral Tablet [Proscar] Proscar 5 MG Proscar 5 MG 09/05/2019 12:00:00 AM EDT 1.0 {tablet} suspended Proscar 5 MG eCW1 ([facility]) Finasteride 5 MG Oral Tablet [Proscar] Proscar 5 MG Proscar 5 MG 09/05/2019 12:00:00 AM EDT 1.0 {tablet} active Pr cassidy 5 MG eCW1 ([facility]) Finasteride 5 MG Oral Tablet [Proscar] Proscar 5 MG Proscar 5 MG 09/05/2019 12:00:00 AM EDT 1.0 {tablet} suspended Proscar 5 MG eCW1 ([facility]) Finasteride 5 MG Oral Tablet [Proscar] Proscar 5 MG Proscar 5 MG 09/05/2019 12:00:00 AM EDT 1.0 {tablet} suspended Proscar 5 MG eCW1 ([facility]) Finasteride 5 MG Oral Tablet [Proscar] Proscar 5 MG Proscar 5 MG 09/05/2019 12:00:00 AM EDT 1.0 {tablet} active Pr cassidy 5 MG eCW1 ([facility]) Finasteride 5 MG Oral Tablet [Proscar] Proscar 5 MG Proscar 5 MG 09/05/2019 12:00:00 AM EDT 1.0 {tablet} active Pr cassidy 5 MG eCW1 ([facility]) Finasteride 5 MG Oral Tablet [Proscar] Proscar 5 MG Proscar 5 MG 09/05/2019 12:00:00 AM EDT 1.0 {tablet} active Pr cassidy 5 MG eCW1 ([facility]) Finasteride 5 MG Oral Tablet [Proscar] Proscar 5 MG Proscar 5 MG 09/05/2019 12:00:00 AM EDT 1.0 {tablet} suspended Proscar 5 MG eCW1 ([facility]) Finasteride 5 MG Oral Tablet [Proscar] Proscar 5 MG Proscar 5 MG 09/05/2019 12:00:00 AM EDT 1.0 {tablet} suspended Proscar 5 MG eCW1 ([facility]) Finasteride 5 MG Oral Tablet [Proscar] Proscar 5 MG Proscar 5 MG 09/05/2019 12:00:00 AM EDT 1.0 {tablet} suspended Proscar 5 MG eCW1 ([facility]) Finasteride 5 MG Oral Tablet [Proscar] Proscar 5 MG Proscar 5 MG 09/05/2019 12:00:00 AM EDT 1.0 {tablet} suspended Proscar 5 MG eCW1 ([facility]) Finasteride 5 MG Oral Tablet [Proscar] Proscar 5 MG Proscar 5 MG 09/05/2019 12:00:00 AM EDT 1.0 {tablet} suspended Proscar 5 MG eCW1 ([facility]) Finasteride 5 MG Oral Tablet [Proscar] Proscar 5 MG Proscar 5 MG 09/05/2019 12:00:00 AM EDT 1.0 {tablet} active Pr cassidy 5 MG eCW1 ([facility]) Finasteride 5 MG Oral Tablet [Proscar] Proscar 5 MG Proscar 5 MG 09/05/2019 12:00:00 AM EDT 1.0 {tablet} active Pr cassidy 5 MG eCW1 ([facility]) Finasteride 5 MG Oral Tablet [Proscar] Proscar 5 MG Proscar 5 MG 09/05/2019 12:00:00 AM EDT 1.0 {tablet} active Pr cassidy 5 MG eCW1 ([facility]) Finasteride 5 MG Oral Tablet [Proscar] Proscar 5 MG Proscar 5 MG 09/05/2019 12:00:00 AM EDT 1.0 {tablet} active Pr cassidy 5 MG eCW1 ([facility]) Finasteride 5 MG Oral Tablet [Proscar] Proscar 5 MG Proscar 5 MG 09/05/2019 12:00:00 AM EDT 1.0 {tablet} active Pr cassidy 5 MG eCW1 ([facility]) Finasteride 5 MG Oral Tablet [Proscar] Proscar 5 MG Proscar 5 MG 09/05/2019 12:00:00 AM EDT 1.0 {tablet} active Pr cassidy 5 MG eCW1 ([facility]) Finasteride 5 MG Oral Tablet [Proscar] Proscar 5 MG Proscar 5 MG 09/05/2019 12:00:00 AM EDT 1.0 {tablet} suspended Proscar 5 MG eCW1 ([facility]) Finasteride 5 MG Oral Tablet [Proscar] Proscar 5 MG Proscar 5 MG 09/05/2019 12:00:00 AM EDT 1.0 {tablet} suspended Proscar 5 MG eCW1 ([facility]) Finasteride 5 MG Oral Tablet [Proscar] Proscar 5 MG Proscar 5 MG 09/05/2019 12:00:00 AM EDT 1.0 {tablet} suspended Proscar 5 MG eCW1 ([facility]) Finasteride 5 MG Oral Tablet [Proscar] Proscar 5 MG Proscar 5 MG 09/05/2019 12:00:00 AM EDT 1.0 {tablet} active Pr cassidy 5 MG eCW1 ([facility]) Finasteride 5 MG Oral Tablet [Proscar] Proscar 5 MG Proscar 5 MG 09/05/2019 12:00:00 AM EDT 1.0 {tablet} active Pr cassidy 5 MG eCW1 ([facility]) Finasteride 5 MG Oral Tablet [Proscar] Proscar 5 MG Proscar 5 MG 09/05/2019 12:00:00 AM EDT 1.0 {tablet} active Pr cassidy 5 MG eCW1 ([facility]) Finasteride 5 MG Oral Tablet [Proscar] Proscar 5 MG Proscar 5 MG 09/05/2019 12:00:00 AM EDT 1.0 {tablet} active Pr cassidy 5 MG eCW1 ([facility]) Finasteride 5 MG Oral Tablet [Proscar] Proscar 5 MG Proscar 5 MG 09/05/2019 12:00:00 AM EDT 1.0 {tablet} suspended Proscar 5 MG eCW1 ([facility]) Finasteride 5 MG Oral Tablet [Proscar] Proscar 5 MG Proscar 5 MG 09/05/2019 12:00:00 AM EDT 1.0 {tablet} active Pr cassidy 5 MG eCW1 ([facility]) Finasteride 5 MG Oral Tablet [Proscar] Proscar 5 MG Proscar 5 MG 09/05/2019 12:00:00 AM EDT 1.0 {tablet} active Pr cassidy 5 MG eCW1 ([facility]) Finasteride 5 MG Oral Tablet [Proscar] Proscar 5 MG Proscar 5 MG 09/05/2019 12:00:00 AM EDT 1.0 {tablet} suspended Proscar 5 MG eCW1 ([facility]) Insulin, Aspart, Human 100 UNT/ML Inject able Solution [NovoLog] NovoLog 100 UNIT/ML NovoLog 100 UNIT/ML 08/06/2019 12:00:00 AM EDT active NovoLog 100 UNIT/ML eCW1 ([facility]) Prednisone 5 MG Oral Tablet PredniSONE 5 MG PredniSONE 5 MG 08/06/2019 12:00:00 AM EDT 1.0 {tablet} active PredniSONE 5 MG eCW1 ([facility]) latanoprost 0.05 MG/ML Ophthalmic Solution Latanoprost 0.005 % Latanoprost 0.005 % 08/06/2019 12:00:00 AM EDT 1.0 {drop_into_affected_eye_in_ the_evening} active Latanoprost 0.005 % eCW1 ([facility]) latanoprost 0.05 MG/ML Ophthalmic Solution Latanoprost 0.005 % Latanoprost 0.005 % 08/06/2019 12:00:00 AM EDT active 1 drop into affected eye in the evening eCW1 ([facility]) Insulin, Aspart, Human 100 UNT/ML Inject able Solution [NovoLog] NovoLog 100 UNIT/ML NovoLog 100 UNIT/ML 08/06/2019 12:00:00 AM EDT active NovoLog 100 UNIT/ML eCW1 ([facility]) Insulin, Aspart, Human 100 UNT/ML Inject able Solution [NovoLog] NovoLog 100 UNIT/ML NovoLog 100 UNIT/ML 08/06/2019 12:00:00 AM EDT active NovoLog 100 UNIT/ML eCW1 ([facility]) Sucralfate 1000 MG Oral Tablet Sucralfate 1 GM Sucralfate 1 GM 08/06/2019 12:00:00 AM EDT 1.0 {tablet_on_an_empty_stomach} active Sucralfate 1 GM eCW1 ([facility]) Sucralfate 1000 MG Oral Tablet Sucralfate 1 GM Sucralfate 1 GM 08/06/2019 12:00:00 AM EDT active 1 tablet on an empty stomach eCW1 ([facility]) Acetaminophen 500 MG Oral Tablet Acetaminophen 500 MG 2019 12:00:00 AM EDT 1.0 {tablet_as_needed} active A cetaminophen 500 MG eCW1 ([facility]) latanoprost 0.05 MG/ML Ophthalmic Solution Latanoprost 0.005 % Latanoprost 0.005 % 08/06/2019 12:00:00 AM EDT 1.0 {drop_into_affected_eye_in_ the_evening} active Latanoprost 0.005 % eCW1 ([facility]) Sucralfate 1000 MG Oral Tablet Sucralfate 1 GM Sucralfate 1 GM 08/06/2019 12:00:00 AM EDT 1.0 {tablet_on_an_empty_stomach} active Sucralfate 1 GM eCW1 ([facility]) Acetaminophen 500 MG Oral Tablet Acetaminophen 500 MG 2019 12:00:00 AM EDT 1.0 {tablet_as_needed} active A cetaminophen 500 MG eCW1 ([facility]) Acetaminophen 500 MG Oral Tablet Acetaminophen 500 MG 2019 12:00:00 AM EDT 1.0 {tablet_as_needed} active A cetaminophen 500 MG eCW1 ([facility]) Sucralfate 1000 MG Oral Tablet Sucralfate 1 GM Sucralfate 1 GM 08/06/2019 12:00:00 AM EDT 1.0 {tablet_on_an_empty_stomach} active Sucralfate 1 GM eCW1 ([facility]) pantoprazole 40 MG Delayed Release Oral Tablet [Proton ix] Protonix 40 MG Protonix 40 MG 08/06/2019 12:00:00 AM EDT 1.0 {tablet} suspended Protonix 40 MG eCW1 ([facility]) Prednisone 5 MG Oral Tablet PredniSONE 5 MG PredniSONE 5 MG 08/06/2019 12:00:00 AM EDT 1.0 {tablet} active PredniSONE 5 MG eCW1 ([facility]) Acetaminophen 500 MG Oral Tablet Acetaminophen 500 MG 2019 12:00:00 AM EDT 1.0 {tablet_as_needed} active A cetaminophen 500 MG eCW1 ([facility]) pantoprazole 40 MG Delayed Release Oral Tablet [Proton ix] Protonix 40 MG Protonix 40 MG 08/06/2019 12:00:00 AM EDT 1.0 {tablet} active Protonix 40 MG eCW1 ([facility]) pantoprazole 40 MG Delayed Release Oral Tablet [Proton ix] Protonix 40 MG Protonix 40 MG 08/06/2019 12:00:00 AM EDT 1.0 {tablet} suspended Protonix 40 MG eCW1 ([facility]) latanoprost 0.05 MG/ML Ophthalmic Solution Latanoprost 0.005 % Latanoprost 0.005 % 08/06/2019 12:00:00 AM EDT 1.0 {drop_into_affected_eye_in_ the_evening} active Latanoprost 0.005 % eCW1 ([facility]) latanoprost 0.05 MG/ML Ophthalmic Solution Latanoprost 0.005 % Latanoprost 0.005 % 08/06/2019 12:00:00 AM EDT 1.0 {drop_into_affected_eye_in_ the_evening} active Latanoprost 0.005 % eCW1 ([facility]) Insulin, Aspart, Human 100 UNT/ML Inject able Solution [NovoLog] NovoLog 100 UNIT/ML NovoLog 100 UNIT/ML 08/06/2019 12:00:00 AM EDT suspended NovoLog 100 UNIT/ML eCW1 ([facility]) Insulin, Aspart, Human 100 UNT/ML Inject able Solution [NovoLog] NovoLog 100 UNIT/ML NovoLog 100 UNIT/ML 08/06/2019 12:00:00 AM EDT suspended NovoLog 100 UNIT/ML eCW1 ([facility]) pantoprazole 40 MG Delayed Release Oral Tablet [Proton ix] Protonix 40 MG Protonix 40 MG 08/06/2019 12:00:00 AM EDT 1.0 {tablet} active Protonix 40 MG eCW1 ([facility]) pantoprazole 40 MG Delayed Release Oral Tablet [Proton ix] Protonix 40 MG Protonix 40 MG 08/06/2019 12:00:00 AM EDT 1.0 {tablet} active Protonix 40 MG eCW1 ([facility]) Sucralfate 1000 MG Oral Tablet Sucralfate 1 GM Sucralfate 1 GM 08/06/2019 12:00:00 AM EDT 1.0 {tablet_on_an_empty_stomach} active Sucralfate 1 GM eCW1 ([facility]) pantoprazole 40 MG Delayed Release Oral Tablet [Proton ix] Protonix 40 MG Protonix 40 MG 08/06/2019 12:00:00 AM EDT 1.0 {tablet} active Protonix 40 MG eCW1 ([facility]) pantoprazole 40 MG Delayed Release Oral Tablet [Proton ix] Protonix 40 MG Protonix 40 MG 08/06/2019 12:00:00 AM EDT 1.0 {tablet} suspended Protonix 40 MG eCW1 ([facility]) latanoprost 0.05 MG/ML Ophthalmic Solution Latanoprost 0.005 % Latanoprost 0.005 % 08/06/2019 12:00:00 AM EDT 1.0 {drop_into_affected_eye_in_ the_evening} active Latanoprost 0.005 % eCW1 ([facility]) Acetaminophen 500 MG Oral Tablet Acetaminophen 500 MG 2019 12:00:00 AM EDT 1.0 {tablet_as_needed} active A cetaminophen 500 MG eCW1 ([facility]) latanoprost 0.05 MG/ML Ophthalmic Solution Latanoprost 0.005 % Latanoprost 0.005 % 08/06/2019 12:00:00 AM EDT 1.0 {drop_into_affected_eye_in_ the_evening} active Latanoprost 0.005 % eCW1 ([facility]) Insulin, Aspart, Human 100 UNT/ML Inject able Solution [NovoLog] NovoLog 100 UNIT/ML NovoLog 100 UNIT/ML 08/06/2019 12:00:00 AM EDT suspended NovoLog 100 UNIT/ML eCW1 ([facility]) Sucralfate 1000 MG Oral Tablet Sucralfate 1 GM Sucralfate 1 GM 08/06/2019 12:00:00 AM EDT 1.0 {tablet_on_an_empty_stomach} active Sucralfate 1 GM eCW1 ([facility]) Sucralfate 1000 MG Oral Tablet Sucralfate 1 GM Sucralfate 1 GM 08/06/2019 12:00:00 AM EDT 1.0 {tablet_on_an_empty_stomach} active Sucralfate 1 GM eCW1 ([facility]) Prednisone 5 MG Oral Tablet PredniSONE 5 MG PredniSONE 5 MG 08/06/2019 12:00:00 AM EDT active 1 tablet eCW1 ([facility]) Acetaminophen 500 MG Oral Tablet Acetaminophen 500 MG 2019 12:00:00 AM EDT active 1 tablet as neede d eCW1 ([facility]) pantoprazole 40 MG Delayed Release Oral Tablet [Proton ix] Protonix 40 MG Protonix 40 MG 08/06/2019 12:00:00 AM EDT 1.0 {tablet} active Protonix 40 MG eCW1 ([facility]) Sucralfate 1000 MG Oral Tablet Sucralfate 1 GM Sucralfate 1 GM 08/06/2019 12:00:00 AM EDT 1.0 {tablet_on_an_empty_stomach} active Sucralfate 1 GM eCW1 ([facility]) Acetaminophen 500 MG Oral Tablet Acetaminophen 500 MG 2019 12:00:00 AM EDT 1.0 {tablet_as_needed} active A cetaminophen 500 MG eCW1 ([facility]) Acetaminophen 500 MG Oral Tablet Acetaminophen 500 MG 2019 12:00:00 AM EDT 1.0 {tablet_as_needed} active A cetaminophen 500 MG eCW1 ([facility]) latanoprost 0.05 MG/ML Ophthalmic Solution Latanoprost 0.005 % Latanoprost 0.005 % 08/06/2019 12:00:00 AM EDT 1.0 {drop_into_affected_eye_in_ the_evening} active Latanoprost 0.005 % eCW1 ([facility]) Insulin, Aspart, Human 100 UNT/ML Inject able Solution [NovoLog] NovoLog 100 UNIT/ML NovoLog 100 UNIT/ML 08/06/2019 12:00:00 AM EDT active NovoLog 100 UNIT/ML eCW1 ([facility]) Sucralfate 1000 MG Oral Tablet Sucralfate 1 GM Sucralfate 1 GM 08/06/2019 12:00:00 AM EDT 1.0 {tablet_on_an_empty_stomach} active Sucralfate 1 GM eCW1 ([facility]) Prednisone 5 MG Oral Tablet PredniSONE 5 MG PredniSONE 5 MG 08/06/2019 12:00:00 AM EDT 1.0 {tablet} active PredniSONE 5 MG eCW1 ([facility]) pantoprazole 40 MG Delayed Release Oral Tablet [Proton ix] Protonix 40 MG Protonix 40 MG 08/06/2019 12:00:00 AM EDT 1.0 {tablet} suspended Protonix 40 MG eCW1 ([facility]) Prednisone 5 MG Oral Tablet PredniSONE 5 MG PredniSONE 5 MG 08/06/2019 12:00:00 AM EDT 1.0 {tablet} active PredniSONE 5 MG eCW1 ([facility]) latanoprost 0.05 MG/ML Ophthalmic Solution Latanoprost 0.005 % Latanoprost 0.005 % 08/06/2019 12:00:00 AM EDT 1.0 {drop_into_affected_eye_in_ the_evening} active Latanoprost 0.005 % eCW1 ([facility]) latanoprost 0.05 MG/ML Ophthalmic Solution Latanoprost 0.005 % Latanoprost 0.005 % 08/06/2019 12:00:00 AM EDT 1.0 {drop_into_affected_eye_in_ the_evening} active Latanoprost 0.005 % eCW1 ([facility]) Acetaminophen 500 MG Oral Tablet Acetaminophen 500 MG 2019 12:00:00 AM EDT 1.0 {tablet_as_needed} active A cetaminophen 500 MG eCW1 ([facility]) Acetaminophen 500 MG Oral Tablet Acetaminophen 500 MG 2019 12:00:00 AM EDT 1.0 {tablet_as_needed} active A cetaminophen 500 MG eCW1 ([facility]) Prednisone 5 MG Oral Tablet PredniSONE 5 MG PredniSONE 5 MG 08/06/2019 12:00:00 AM EDT 1.0 {tablet} active PredniSONE 5 MG eCW1 ([facility]) latanoprost 0.05 MG/ML Ophthalmic Solution Latanoprost 0.005 % Latanoprost 0.005 % 08/06/2019 12:00:00 AM EDT 1.0 {drop_into_affected_eye_in_ the_evening} active Latanoprost 0.005 % eCW1 ([facility]) Sucralfate 1000 MG Oral Tablet Sucralfate 1 GM Sucralfate 1 GM 08/06/2019 12:00:00 AM EDT active 1 tablet on an empty stomach eCW1 ([facility]) latanoprost 0.05 MG/ML Ophthalmic Solution Latanoprost 0.005 % Latanoprost 0.005 % 08/06/2019 12:00:00 AM EDT 1.0 {drop_into_affected_eye_in_ the_evening} active Latanoprost 0.005 % eCW1 ([facility]) pantoprazole 40 MG Delayed Release Oral Tablet [Proton ix] Protonix 40 MG Protonix 40 MG 08/06/2019 12:00:00 AM EDT 1.0 {tablet} active Protonix 40 MG eCW1 ([facility]) Prednisone 5 MG Oral Tablet PredniSONE 5 MG PredniSONE 5 MG 08/06/2019 12:00:00 AM EDT 1.0 {tablet} active PredniSONE 5 MG eCW1 ([facility]) pantoprazole 40 MG Delayed Release Oral Tablet [Proton ix] Protonix 40 MG Protonix 40 MG 08/06/2019 12:00:00 AM EDT 1.0 {tablet} suspended Protonix 40 MG eCW1 ([facility]) Prednisone 5 MG Oral Tablet PredniSONE 5 MG PredniSONE 5 MG 08/06/2019 12:00:00 AM EDT 1.0 {tablet} active PredniSONE 5 MG eCW1 ([facility]) Acetaminophen 500 MG Oral Tablet Acetaminophen 500 MG 2019 12:00:00 AM EDT 1.0 {tablet_as_needed} active A cetaminophen 500 MG eCW1 ([facility]) pantoprazole 40 MG Delayed Release Oral Tablet [Proton ix] Protonix 40 MG Protonix 40 MG 08/06/2019 12:00:00 AM EDT 1.0 {tablet} suspended Protonix 40 MG eCW1 ([facility]) pantoprazole 40 MG Delayed Release Oral Tablet [Proton ix] Protonix 40 MG Protonix 40 MG 08/06/2019 12:00:00 AM EDT 1.0 {tablet} active Protonix 40 MG eCW1 ([facility]) Sucralfate 1000 MG Oral Tablet Sucralfate 1 GM Sucralfate 1 GM 08/06/2019 12:00:00 AM EDT 1.0 {tablet_on_an_empty_stomach} active Sucralfate 1 GM eCW1 ([facility]) pantoprazole 40 MG Delayed Release Oral Tablet [Proton ix] Protonix 40 MG Protonix 40 MG 08/06/2019 12:00:00 AM EDT 1.0 {tablet} active Protonix 40 MG eCW1 ([facility]) latanoprost 0.05 MG/ML Ophthalmic Solution Latanoprost 0.005 % Latanoprost 0.005 % 08/06/2019 12:00:00 AM EDT 1.0 {drop_into_affected_eye_in_ the_evening} active Latanoprost 0.005 % eCW1 ([facility]) Sucralfate 1000 MG Oral Tablet Sucralfate 1 GM Sucralfate 1 GM 08/06/2019 12:00:00 AM EDT 1.0 {tablet_on_an_empty_stomach} active Sucralfate 1 GM eCW1 ([facility]) Insulin, Aspart, Human 100 UNT/ML Inject able Solution [NovoLog] NovoLog 100 UNIT/ML NovoLog 100 UNIT/ML 08/06/2019 12:00:00 AM EDT suspended NovoLog 100 UNIT/ML eCW1 ([facility]) Insulin, Aspart, Human 100 UNT/ML Inject able Solution [NovoLog] NovoLog 100 UNIT/ML NovoLog 100 UNIT/ML 08/06/2019 12:00:00 AM EDT active NovoLog 100 UNIT/ML eCW1 ([facility]) Prednisone 5 MG Oral Tablet PredniSONE 5 MG PredniSONE 5 MG 08/06/2019 12:00:00 AM EDT 1.0 {tablet} active PredniSONE 5 MG eCW1 ([facility]) Insulin, Aspart, Human 100 UNT/ML Inject able Solution [NovoLog] NovoLog 100 UNIT/ML NovoLog 100 UNIT/ML 08/06/2019 12:00:00 AM EDT active NovoLog 100 UNIT/ML eCW1 ([facility]) Prednisone 5 MG Oral Tablet PredniSONE 5 MG PredniSONE 5 MG 08/06/2019 12:00:00 AM EDT active 1 tablet eCW1 ([facility]) Acetaminophen 500 MG Oral Tablet Acetaminophen 500 MG 2019 12:00:00 AM EDT 1.0 {tablet_as_needed} active A cetaminophen 500 MG eCW1 ([facility]) Acetaminophen 500 MG Oral Tablet Acetaminophen 500 MG 2019 12:00:00 AM EDT 1.0 {tablet_as_needed} active A cetaminophen 500 MG eCW1 ([facility]) latanoprost 0.05 MG/ML Ophthalmic Solution Latanoprost 0.005 % Latanoprost 0.005 % 08/06/2019 12:00:00 AM EDT 1.0 {drop_into_affected_eye_in_ the_evening} active Latanoprost 0.005 % eCW1 ([facility]) latanoprost 0.05 MG/ML Ophthalmic Solution Latanoprost 0.005 % Latanoprost 0.005 % 08/06/2019 12:00:00 AM EDT 1.0 {drop_into_affected_eye_in_ the_evening} active Latanoprost 0.005 % eCW1 ([facility]) Insulin, Aspart, Human 100 UNT/ML Inject able Solution [NovoLog] NovoLog 100 UNIT/ML NovoLog 100 UNIT/ML 08/06/2019 12:00:00 AM EDT active NovoLog 100 UNIT/ML eCW1 ([facility]) Prednisone 5 MG Oral Tablet PredniSONE 5 MG PredniSONE 5 MG 08/06/2019 12:00:00 AM EDT 1.0 {tablet} active PredniSONE 5 MG eCW1 ([facility]) Sucralfate 1000 MG Oral Tablet Sucralfate 1 GM Sucralfate 1 GM 08/06/2019 12:00:00 AM EDT 1.0 {tablet_on_an_empty_stomach} active Sucralfate 1 GM eCW1 ([facility]) Prednisone 5 MG Oral Tablet PredniSONE 5 MG PredniSONE 5 MG 08/06/2019 12:00:00 AM EDT 1.0 {tablet} active PredniSONE 5 MG eCW1 ([facility]) Acetaminophen 500 MG Oral Tablet Acetaminophen 500 MG 2019 12:00:00 AM EDT 1.0 {tablet_as_needed} active A cetaminophen 500 MG eCW1 ([facility]) Prednisone 5 MG Oral Tablet PredniSONE 5 MG PredniSONE 5 MG 08/06/2019 12:00:00 AM EDT 1.0 {tablet} active PredniSONE 5 MG eCW1 ([facility]) pantoprazole 40 MG Delayed Release Oral Tablet [Proton ix] Protonix 40 MG Protonix 40 MG 08/06/2019 12:00:00 AM EDT 1.0 {tablet} suspended Protonix 40 MG eCW1 ([facility]) Acetaminophen 500 MG Oral Tablet Acetaminophen 500 MG 2019 12:00:00 AM EDT 1.0 {tablet_as_needed} active A cetaminophen 500 MG eCW1 ([facility]) Sucralfate 1000 MG Oral Tablet Sucralfate 1 GM Sucralfate 1 GM 08/06/2019 12:00:00 AM EDT 1.0 {tablet_on_an_empty_stomach} active Sucralfate 1 GM eCW1 ([facility]) Sucralfate 1000 MG Oral Tablet Sucralfate 1 GM Sucralfate 1 GM 08/06/2019 12:00:00 AM EDT 1.0 {tablet_on_an_empty_stomach} active Sucralfate 1 GM eCW1 ([facility]) Acetaminophen 500 MG Oral Tablet Acetaminophen 500 MG 2019 12:00:00 AM EDT 1.0 {tablet_as_needed} active A cetaminophen 500 MG eCW1 ([facility]) Acetaminophen 500 MG Oral Tablet Acetaminophen 500 MG 2019 12:00:00 AM EDT 1.0 {tablet_as_needed} active A cetaminophen 500 MG eCW1 ([facility]) Prednisone 5 MG Oral Tablet PredniSONE 5 MG PredniSONE 5 MG 08/06/2019 12:00:00 AM EDT 1.0 {tablet} active PredniSONE 5 MG eCW1 ([facility]) latanoprost 0.05 MG/ML Ophthalmic Solution Latanoprost 0.005 % Latanoprost 0.005 % 08/06/2019 12:00:00 AM EDT 1.0 {drop_into_affected_eye_in_ the_evening} active Latanoprost 0.005 % eCW1 ([facility]) Acetaminophen 500 MG Oral Tablet Acetaminophen 500 MG 2019 12:00:00 AM EDT 1.0 {tablet_as_needed} active A cetaminophen 500 MG eCW1 ([facility]) pantoprazole 40 MG Delayed Release Oral Tablet [Proton ix] Protonix 40 MG Protonix 40 MG 08/06/2019 12:00:00 AM EDT 1.0 {tablet} active Protonix 40 MG eCW1 ([facility]) Insulin, Aspart, Human 100 UNT/ML Inject able Solution [NovoLog] NovoLog 100 UNIT/ML NovoLog 100 UNIT/ML 08/06/2019 12:00:00 AM EDT active NovoLog 100 UNIT/ML eCW1 ([facility]) Acetaminophen 500 MG Oral Tablet Acetaminophen 500 MG 2019 12:00:00 AM EDT 1.0 {tablet_as_needed} active A cetaminophen 500 MG eCW1 ([facility]) Prednisone 5 MG Oral Tablet PredniSONE 5 MG PredniSONE 5 MG 08/06/2019 12:00:00 AM EDT 1.0 {tablet} active PredniSONE 5 MG eCW1 ([facility]) pantoprazole 40 MG Delayed Release Oral Tablet [Proton ix] Protonix 40 MG Protonix 40 MG 08/06/2019 12:00:00 AM EDT 1.0 {tablet} active Protonix 40 MG eCW1 ([facility]) Insulin, Aspart, Human 100 UNT/ML Inject able Solution [NovoLog] NovoLog 100 UNIT/ML NovoLog 100 UNIT/ML 08/06/2019 12:00:00 AM EDT suspended NovoLog 100 UNIT/ML eCW1 ([facility]) latanoprost 0.05 MG/ML Ophthalmic Solution Latanoprost 0.005 % Latanoprost 0.005 % 08/06/2019 12:00:00 AM EDT 1.0 {drop_into_affected_eye_in_ the_evening} active Latanoprost 0.005 % eCW1 ([facility]) Acetaminophen 500 MG Oral Tablet Acetaminophen 500 MG 2019 12:00:00 AM EDT 1.0 {tablet_as_needed} active A cetaminophen 500 MG eCW1 ([facility]) Acetaminophen 500 MG Oral Tablet Acetaminophen 500 MG 2019 12:00:00 AM EDT 1.0 {tablet_as_needed} active A cetaminophen 500 MG eCW1 ([facility]) Prednisone 5 MG Oral Tablet PredniSONE 5 MG PredniSONE 5 MG 08/06/2019 12:00:00 AM EDT 1.0 {tablet} active PredniSONE 5 MG eCW1 ([facility]) Acetaminophen 500 MG Oral Tablet Acetaminophen 500 MG 2019 12:00:00 AM EDT 1.0 {tablet_as_needed} active A cetaminophen 500 MG eCW1 ([facility]) Acetaminophen 500 MG Oral Tablet Acetaminophen 500 MG 2019 12:00:00 AM EDT active 1 tablet as neede d eCW1 ([facility]) pantoprazole 40 MG Delayed Release Oral Tablet [Proton ix] Protonix 40 MG Protonix 40 MG 08/06/2019 12:00:00 AM EDT 1.0 {tablet} suspended Protonix 40 MG eCW1 ([facility]) Prednisone 5 MG Oral Tablet PredniSONE 5 MG PredniSONE 5 MG 08/06/2019 12:00:00 AM EDT 1.0 {tablet} active PredniSONE 5 MG eCW1 ([facility]) Insulin, Aspart, Human 100 UNT/ML Inject able Solution [NovoLog] NovoLog 100 UNIT/ML NovoLog 100 UNIT/ML 08/06/2019 12:00:00 AM EDT active NovoLog 100 UNIT/ML eCW1 ([facility]) latanoprost 0.05 MG/ML Ophthalmic Solution Latanoprost 0.005 % Latanoprost 0.005 % 08/06/2019 12:00:00 AM EDT active 1 drop into affected eye in the evening eCW1 ([facility]) Prednisone 5 MG Oral Tablet PredniSONE 5 MG PredniSONE 5 MG 08/06/2019 12:00:00 AM EDT 1.0 {tablet} active PredniSONE 5 MG eCW1 ([facility]) Sucralfate 1000 MG Oral Tablet Sucralfate 1 GM Sucralfate 1 GM 08/06/2019 12:00:00 AM EDT 1.0 {tablet_on_an_empty_stomach} active Sucralfate 1 GM eCW1 ([facility]) Acetaminophen 500 MG Oral Tablet Acetaminophen 500 MG 2019 12:00:00 AM EDT 1.0 {tablet_as_needed} active A cetaminophen 500 MG eCW1 ([facility]) Insulin, Aspart, Human 100 UNT/ML Inject able Solution [NovoLog] NovoLog 100 UNIT/ML NovoLog 100 UNIT/ML 08/06/2019 12:00:00 AM EDT active NovoLog 100 UNIT/ML eCW1 ([facility]) Insulin, Aspart, Human 100 UNT/ML Inject able Solution [NovoLog] NovoLog 100 UNIT/ML NovoLog 100 UNIT/ML 08/06/2019 12:00:00 AM EDT suspended NovoLog 100 UNIT/ML eCW1 ([facility]) pantoprazole 40 MG Delayed Release Oral Tablet [Proton ix] Protonix 40 MG Protonix 40 MG 08/06/2019 12:00:00 AM EDT active 1 tablet eCW1 ([facility]) Insulin, Aspart, Human 100 UNT/ML Inject able Solution [NovoLog] NovoLog 100 UNIT/ML NovoLog 100 UNIT/ML 08/06/2019 12:00:00 AM EDT suspended NovoLog 100 UNIT/ML eCW1 ([facility]) Prednisone 5 MG Oral Tablet PredniSONE 5 MG PredniSONE 5 MG 08/06/2019 12:00:00 AM EDT 1.0 {tablet} active PredniSONE 5 MG eCW1 ([facility]) Prednisone 5 MG Oral Tablet PredniSONE 5 MG PredniSONE 5 MG 08/06/2019 12:00:00 AM EDT 1.0 {tablet} active PredniSONE 5 MG eCW1 ([facility]) Sucralfate 1000 MG Oral Tablet Sucralfate 1 GM Sucralfate 1 GM 08/06/2019 12:00:00 AM EDT 1.0 {tablet_on_an_empty_stomach} active Sucralfate 1 GM eCW1 ([facility]) Insulin, Aspart, Human 100 UNT/ML Inject able Solution [NovoLog] NovoLog 100 UNIT/ML NovoLog 100 UNIT/ML 08/06/2019 12:00:00 AM EDT active NovoLog 100 UNIT/ML eCW1 ([facility]) Prednisone 5 MG Oral Tablet PredniSONE 5 MG PredniSONE 5 MG 08/06/2019 12:00:00 AM EDT 1.0 {tablet} active PredniSONE 5 MG eCW1 ([facility]) Insulin, Aspart, Human 100 UNT/ML Inject able Solution [NovoLog] NovoLog 100 UNIT/ML NovoLog 100 UNIT/ML 08/06/2019 12:00:00 AM EDT active as directed eCW1 ([facility]) latanoprost 0.05 MG/ML Ophthalmic Solution Latanoprost 0.005 % Latanoprost 0.005 % 08/06/2019 12:00:00 AM EDT 1.0 {drop_into_affected_eye_in_ the_evening} active Latanoprost 0.005 % eCW1 ([facility]) Insulin, Aspart, Human 100 UNT/ML Inject able Solution [NovoLog] NovoLog 100 UNIT/ML NovoLog 100 UNIT/ML 08/06/2019 12:00:00 AM EDT suspended NovoLog 100 UNIT/ML eCW1 ([facility]) pantoprazole 40 MG Delayed Release Oral Tablet [Proton ix] Protonix 40 MG Protonix 40 MG 08/06/2019 12:00:00 AM EDT 1.0 {tablet} active Protonix 40 MG eCW1 ([facility]) Insulin, Aspart, Human 100 UNT/ML Inject able Solution [NovoLog] NovoLog 100 UNIT/ML NovoLog 100 UNIT/ML 08/06/2019 12:00:00 AM EDT suspended NovoLog 100 UNIT/ML eCW1 ([facility]) Acetaminophen 500 MG Oral Tablet Acetaminophen 500 MG 2019 12:00:00 AM EDT 1.0 {tablet_as_needed} active A cetaminophen 500 MG eCW1 ([facility]) pantoprazole 40 MG Delayed Release Oral Tablet [Proton ix] Protonix 40 MG Protonix 40 MG 08/06/2019 12:00:00 AM EDT 1.0 {tablet} suspended Protonix 40 MG eCW1 ([facility]) Insulin, Aspart, Human 100 UNT/ML Inject able Solution [NovoLog] NovoLog 100 UNIT/ML NovoLog 100 UNIT/ML 08/06/2019 12:00:00 AM EDT suspended NovoLog 100 UNIT/ML eCW1 ([facility]) Prednisone 5 MG Oral Tablet PredniSONE 5 MG PredniSONE 5 MG 08/06/2019 12:00:00 AM EDT 1.0 {tablet} active PredniSONE 5 MG eCW1 ([facility]) Prednisone 5 MG Oral Tablet PredniSONE 5 MG PredniSONE 5 MG 08/06/2019 12:00:00 AM EDT 1.0 {tablet} active PredniSONE 5 MG eCW1 ([facility]) pantoprazole 40 MG Delayed Release Oral Tablet [Proton ix] Protonix 40 MG Protonix 40 MG 08/06/2019 12:00:00 AM EDT 1.0 {tablet} suspended Protonix 40 MG eCW1 ([facility]) latanoprost 0.05 MG/ML Ophthalmic Solution Latanoprost 0.005 % Latanoprost 0.005 % 08/06/2019 12:00:00 AM EDT 1.0 {drop_into_affected_eye_in_ the_evening} active Latanoprost 0.005 % eCW1 ([facility]) Insulin, Aspart, Human 100 UNT/ML Inject able Solution [NovoLog] NovoLog 100 UNIT/ML NovoLog 100 UNIT/ML 08/06/2019 12:00:00 AM EDT suspended NovoLog 100 UNIT/ML eCW1 ([facility]) latanoprost 0.05 MG/ML Ophthalmic Solution Latanoprost 0.005 % Latanoprost 0.005 % 08/06/2019 12:00:00 AM EDT 1.0 {drop_into_affected_eye_in_ the_evening} active Latanoprost 0.005 % eCW1 ([facility]) Prednisone 5 MG Oral Tablet PredniSONE 5 MG PredniSONE 5 MG 08/06/2019 12:00:00 AM EDT 1.0 {tablet} active PredniSONE 5 MG eCW1 ([facility]) pantoprazole 40 MG Delayed Release Oral Tablet [Proton ix] Protonix 40 MG Protonix 40 MG 08/06/2019 12:00:00 AM EDT 1.0 {tablet} active Protonix 40 MG eCW1 ([facility]) latanoprost 0.05 MG/ML Ophthalmic Solution Latanoprost 0.005 % Latanoprost 0.005 % 08/06/2019 12:00:00 AM EDT 1.0 {drop_into_affected_eye_in_ the_evening} active Latanoprost 0.005 % eCW1 ([facility]) latanoprost 0.05 MG/ML Ophthalmic Solution Latanoprost 0.005 % Latanoprost 0.005 % 08/06/2019 12:00:00 AM EDT 1.0 {drop_into_affected_eye_in_ the_evening} active Latanoprost 0.005 % eCW1 ([facility]) latanoprost 0.05 MG/ML Ophthalmic Solution Latanoprost 0.005 % Latanoprost 0.005 % 08/06/2019 12:00:00 AM EDT 1.0 {drop_into_affected_eye_in_ the_evening} active Latanoprost 0.005 % eCW1 ([facility]) Acetaminophen 500 MG Oral Tablet Acetaminophen 500 MG 2019 12:00:00 AM EDT 1.0 {tablet_as_needed} active A cetaminophen 500 MG eCW1 ([facility]) Insulin, Aspart, Human 100 UNT/ML Inject able Solution [NovoLog] NovoLog 100 UNIT/ML NovoLog 100 UNIT/ML 08/06/2019 12:00:00 AM EDT suspended NovoLog 100 UNIT/ML eCW1 ([facility]) Sucralfate 1000 MG Oral Tablet Sucralfate 1 GM Sucralfate 1 GM 08/06/2019 12:00:00 AM EDT 1.0 {tablet_on_an_empty_stomach} active Sucralfate 1 GM eCW1 ([facility]) Sucralfate 1000 MG Oral Tablet Sucralfate 1 GM Sucralfate 1 GM 08/06/2019 12:00:00 AM EDT 1.0 {tablet_on_an_empty_stomach} active Sucralfate 1 GM eCW1 ([facility]) Acetaminophen 500 MG Oral Tablet Acetaminophen 500 MG 2019 12:00:00 AM EDT 1.0 {tablet_as_needed} active A cetaminophen 500 MG eCW1 ([facility]) latanoprost 0.05 MG/ML Ophthalmic Solution Latanoprost 0.005 % Latanoprost 0.005 % 08/06/2019 12:00:00 AM EDT 1.0 {drop_into_affected_eye_in_ the_evening} active Latanoprost 0.005 % eCW1 ([facility]) latanoprost 0.05 MG/ML Ophthalmic Solution Latanoprost 0.005 % Latanoprost 0.005 % 08/06/2019 12:00:00 AM EDT 1.0 {drop_into_affected_eye_in_ the_evening} active Latanoprost 0.005 % eCW1 ([facility]) Sucralfate 1000 MG Oral Tablet Sucralfate 1 GM Sucralfate 1 GM 08/06/2019 12:00:00 AM EDT 1.0 {tablet_on_an_empty_stomach} active Sucralfate 1 GM eCW1 ([facility]) pantoprazole 40 MG Delayed Release Oral Tablet [Proton ix] Protonix 40 MG Protonix 40 MG 08/06/2019 12:00:00 AM EDT 1.0 {tablet} suspended Protonix 40 MG eCW1 ([facility]) Prednisone 5 MG Oral Tablet PredniSONE 5 MG PredniSONE 5 MG 08/06/2019 12:00:00 AM EDT 1.0 {tablet} active PredniSONE 5 MG eCW1 ([facility]) Insulin, Aspart, Human 100 UNT/ML Inject able Solution [NovoLog] NovoLog 100 UNIT/ML NovoLog 100 UNIT/ML 08/06/2019 12:00:00 AM EDT suspended NovoLog 100 UNIT/ML eCW1 ([facility]) Sucralfate 1000 MG Oral Tablet Sucralfate 1 GM Sucralfate 1 GM 08/06/2019 12:00:00 AM EDT 1.0 {tablet_on_an_empty_stomach} active Sucralfate 1 GM eCW1 ([facility]) pantoprazole 40 MG Delayed Release Oral Tablet [Proton ix] Protonix 40 MG Protonix 40 MG 08/06/2019 12:00:00 AM EDT 1.0 {tablet} active Protonix 40 MG eCW1 ([facility]) Sucralfate 1000 MG Oral Tablet Sucralfate 1 GM Sucralfate 1 GM 08/06/2019 12:00:00 AM EDT 1.0 {tablet_on_an_empty_stomach} active Sucralfate 1 GM eCW1 ([facility]) Sucralfate 1000 MG Oral Tablet Sucralfate 1 GM Sucralfate 1 GM 08/06/2019 12:00:00 AM EDT 1.0 {tablet_on_an_empty_stomach} active Sucralfate 1 GM eCW1 ([facility]) Sucralfate 1000 MG Oral Tablet Sucralfate 1 GM Sucralfate 1 GM 08/06/2019 12:00:00 AM EDT 1.0 {tablet_on_an_empty_stomach} active Sucralfate 1 GM eCW1 ([facility]) Acetaminophen 500 MG Oral Tablet Acetaminophen 500 MG 2019 12:00:00 AM EDT 1.0 {tablet_as_needed} active A cetaminophen 500 MG eCW1 ([facility]) pantoprazole 40 MG Delayed Release Oral Tablet [Proton ix] Protonix 40 MG Protonix 40 MG 08/06/2019 12:00:00 AM EDT 1.0 {tablet} active Protonix 40 MG eCW1 ([facility]) Sucralfate 1000 MG Oral Tablet Sucralfate 1 GM Sucralfate 1 GM 08/06/2019 12:00:00 AM EDT 1.0 {tablet_on_an_empty_stomach} active Sucralfate 1 GM eCW1 ([facility]) Sucralfate 1000 MG Oral Tablet Sucralfate 1 GM Sucralfate 1 GM 08/06/2019 12:00:00 AM EDT 1.0 {tablet_on_an_empty_stomach} active Sucralfate 1 GM eCW1 ([facility]) Acetaminophen 500 MG Oral Tablet Acetaminophen 500 MG 2019 12:00:00 AM EDT 1.0 {tablet_as_needed} active A cetaminophen 500 MG eCW1 ([facility]) pantoprazole 40 MG Delayed Release Oral Tablet [Proton ix] Protonix 40 MG Protonix 40 MG 08/06/2019 12:00:00 AM EDT 1.0 {tablet} active Protonix 40 MG eCW1 ([facility]) Sucralfate 1000 MG Oral Tablet Sucralfate 1 GM Sucralfate 1 GM 08/06/2019 12:00:00 AM EDT 1.0 {tablet_on_an_empty_stomach} active Sucralfate 1 GM eCW1 ([facility]) pantoprazole 40 MG Delayed Release Oral Tablet [Proton ix] Protonix 40 MG Protonix 40 MG 08/06/2019 12:00:00 AM EDT 1.0 {tablet} suspended Protonix 40 MG eCW1 ([facility]) Insulin, Aspart, Human 100 UNT/ML Inject able Solution [NovoLog] NovoLog 100 UNIT/ML NovoLog 100 UNIT/ML 08/06/2019 12:00:00 AM EDT suspended NovoLog 100 UNIT/ML eCW1 ([facility]) latanoprost 0.05 MG/ML Ophthalmic Solution Latanoprost 0.005 % Latanoprost 0.005 % 08/06/2019 12:00:00 AM EDT 1.0 {drop_into_affected_eye_in_ the_evening} active Latanoprost 0.005 % eCW1 ([facility]) Insulin, Aspart, Human 100 UNT/ML Inject able Solution [NovoLog] NovoLog 100 UNIT/ML NovoLog 100 UNIT/ML 08/06/2019 12:00:00 AM EDT suspended NovoLog 100 UNIT/ML eCW1 ([facility]) Sucralfate 1000 MG Oral Tablet Sucralfate 1 GM Sucralfate 1 GM 08/06/2019 12:00:00 AM EDT 1.0 {tablet_on_an_empty_stomach} active Sucralfate 1 GM eCW1 ([facility]) Insulin, Aspart, Human 100 UNT/ML Inject able Solution [NovoLog] NovoLog 100 UNIT/ML NovoLog 100 UNIT/ML 08/06/2019 12:00:00 AM EDT active NovoLog 100 UNIT/ML eCW1 ([facility]) Sucralfate 1000 MG Oral Tablet Sucralfate 1 GM Sucralfate 1 GM 08/06/2019 12:00:00 AM EDT 1.0 {tablet_on_an_empty_stomach} active Sucralfate 1 GM eCW1 ([facility]) Prednisone 5 MG Oral Tablet PredniSONE 5 MG PredniSONE 5 MG 08/06/2019 12:00:00 AM EDT 1.0 {tablet} active PredniSONE 5 MG eCW1 ([facility]) latanoprost 0.05 MG/ML Ophthalmic Solution Latanoprost 0.005 % Latanoprost 0.005 % 08/06/2019 12:00:00 AM EDT 1.0 {drop_into_affected_eye_in_ the_evening} active Latanoprost 0.005 % eCW1 ([facility]) Prednisone 5 MG Oral Tablet PredniSONE 5 MG PredniSONE 5 MG 08/06/2019 12:00:00 AM EDT 1.0 {tablet} active PredniSONE 5 MG eCW1 ([facility]) pantoprazole 40 MG Delayed Release Oral Tablet [Proton ix] Protonix 40 MG Protonix 40 MG 08/06/2019 12:00:00 AM EDT 1.0 {tablet} suspended Protonix 40 MG eCW1 ([facility]) pantoprazole 40 MG Delayed Release Oral Tablet [Proton ix] Protonix 40 MG Protonix 40 MG 08/06/2019 12:00:00 AM EDT 1.0 {tablet} active Protonix 40 MG eCW1 ([facility]) Sucralfate 1000 MG Oral Tablet Sucralfate 1 GM Sucralfate 1 GM 08/06/2019 12:00:00 AM EDT 1.0 {tablet_on_an_empty_stomach} active Sucralfate 1 GM eCW1 ([facility]) Prednisone 5 MG Oral Tablet PredniSONE 5 MG PredniSONE 5 MG 08/06/2019 12:00:00 AM EDT 1.0 {tablet} active PredniSONE 5 MG eCW1 ([facility]) Prednisone 5 MG Oral Tablet PredniSONE 5 MG PredniSONE 5 MG 08/06/2019 12:00:00 AM EDT 1.0 {tablet} active PredniSONE 5 MG eCW1 ([facility]) Acetaminophen 500 MG Oral Tablet Acetaminophen 500 MG 2019 12:00:00 AM EDT 1.0 {tablet_as_needed} active A cetaminophen 500 MG eCW1 ([facility]) pantoprazole 40 MG Delayed Release Oral Tablet [Proton ix] Protonix 40 MG Protonix 40 MG 08/06/2019 12:00:00 AM EDT 1.0 {tablet} suspended Protonix 40 MG eCW1 ([facility]) Prednisone 5 MG Oral Tablet PredniSONE 5 MG PredniSONE 5 MG 08/06/2019 12:00:00 AM EDT 1.0 {tablet} active PredniSONE 5 MG eCW1 ([facility]) pantoprazole 40 MG Delayed Release Oral Tablet [Proton ix] Protonix 40 MG Protonix 40 MG 08/06/2019 12:00:00 AM EDT active 1 tablet eCW1 ([facility]) Sucralfate 1000 MG Oral Tablet Sucralfate 1 GM Sucralfate 1 GM 08/06/2019 12:00:00 AM EDT 1.0 {tablet_on_an_empty_stomach} active Sucralfate 1 GM eCW1 ([facility]) Acetaminophen 500 MG Oral Tablet Acetaminophen 500 MG 2019 12:00:00 AM EDT 1.0 {tablet_as_needed} active A cetaminophen 500 MG eCW1 ([facility]) latanoprost 0.05 MG/ML Ophthalmic Solution Latanoprost 0.005 % Latanoprost 0.005 % 08/06/2019 12:00:00 AM EDT 1.0 {drop_into_affected_eye_in_ the_evening} active Latanoprost 0.005 % eCW1 ([facility]) Prednisone 5 MG Oral Tablet PredniSONE 5 MG PredniSONE 5 MG 08/06/2019 12:00:00 AM EDT 1.0 {tablet} active PredniSONE 5 MG eCW1 ([facility]) latanoprost 0.05 MG/ML Ophthalmic Solution Latanoprost 0.005 % Latanoprost 0.005 % 08/06/2019 12:00:00 AM EDT 1.0 {drop_into_affected_eye_in_ the_evening} active Latanoprost 0.005 % eCW1 ([facility]) latanoprost 0.05 MG/ML Ophthalmic Solution Latanoprost 0.005 % Latanoprost 0.005 % 08/06/2019 12:00:00 AM EDT 1.0 {drop_into_affected_eye_in_ the_evening} active Latanoprost 0.005 % eCW1 ([facility]) pantoprazole 40 MG Delayed Release Oral Tablet [Proton ix] Protonix 40 MG Protonix 40 MG 08/06/2019 12:00:00 AM EDT 1.0 {tablet} suspended Protonix 40 MG eCW1 ([facility]) Insulin, Aspart, Human 100 UNT/ML Inject able Solution [NovoLog] NovoLog 100 UNIT/ML NovoLog 100 UNIT/ML 08/06/2019 12:00:00 AM EDT active NovoLog 100 UNIT/ML eCW1 ([facility]) Sucralfate 1000 MG Oral Tablet Sucralfate 1 GM Sucralfate 1 GM 08/06/2019 12:00:00 AM EDT 1.0 {tablet_on_an_empty_stomach} active Sucralfate 1 GM eCW1 ([facility]) latanoprost 0.05 MG/ML Ophthalmic Solution Latanoprost 0.005 % Latanoprost 0.005 % 08/06/2019 12:00:00 AM EDT 1.0 {drop_into_affected_eye_in_ the_evening} active Latanoprost 0.005 % eCW1 ([facility]) Acetaminophen 500 MG Oral Tablet Acetaminophen 500 MG 2019 12:00:00 AM EDT 1.0 {tablet_as_needed} active A cetaminophen 500 MG eCW1 ([facility]) Insulin, Aspart, Human 100 UNT/ML Inject able Solution [NovoLog] NovoLog 100 UNIT/ML NovoLog 100 UNIT/ML 08/06/2019 12:00:00 AM EDT suspended NovoLog 100 UNIT/ML eCW1 ([facility]) Acetaminophen 500 MG Oral Tablet Acetaminophen 500 MG 2019 12:00:00 AM EDT 1.0 {tablet_as_needed} active A cetaminophen 500 MG eCW1 ([facility]) Insulin, Aspart, Human 100 UNT/ML Inject able Solution [NovoLog] NovoLog 100 UNIT/ML NovoLog 100 UNIT/ML 08/06/2019 12:00:00 AM EDT suspended NovoLog 100 UNIT/ML eCW1 ([facility]) Acetaminophen 500 MG Oral Tablet Acetaminophen 500 MG 2019 12:00:00 AM EDT 1.0 {tablet_as_needed} active A cetaminophen 500 MG eCW1 ([facility]) Acetaminophen 500 MG Oral Tablet Acetaminophen 500 MG 2019 12:00:00 AM EDT 1.0 {tablet_as_needed} active A cetaminophen 500 MG eCW1 ([facility]) Prednisone 5 MG Oral Tablet PredniSONE 5 MG PredniSONE 5 MG 08/06/2019 12:00:00 AM EDT 1.0 {tablet} active PredniSONE 5 MG eCW1 ([facility]) Sucralfate 1000 MG Oral Tablet Sucralfate 1 GM Sucralfate 1 GM 08/06/2019 12:00:00 AM EDT 1.0 {tablet_on_an_empty_stomach} active Sucralfate 1 GM eCW1 ([facility]) Sucralfate 1000 MG Oral Tablet Sucralfate 1 GM Sucralfate 1 GM 08/06/2019 12:00:00 AM EDT 1.0 {tablet_on_an_empty_stomach} active Sucralfate 1 GM eCW1 ([facility]) Prednisone 5 MG Oral Tablet PredniSONE 5 MG PredniSONE 5 MG 08/06/2019 12:00:00 AM EDT 1.0 {tablet} active PredniSONE 5 MG eCW1 ([facility]) Insulin, Aspart, Human 100 UNT/ML Inject able Solution [NovoLog] NovoLog 100 UNIT/ML NovoLog 100 UNIT/ML 08/06/2019 12:00:00 AM EDT suspended NovoLog 100 UNIT/ML eCW1 ([facility]) Acetaminophen 500 MG Oral Tablet Acetaminophen 500 MG 2019 12:00:00 AM EDT 1.0 {tablet_as_needed} active A cetaminophen 500 MG eCW1 ([facility]) Prednisone 5 MG Oral Tablet PredniSONE 5 MG PredniSONE 5 MG 08/06/2019 12:00:00 AM EDT 1.0 {tablet} active PredniSONE 5 MG eCW1 ([facility]) latanoprost 0.05 MG/ML Ophthalmic Solution Latanoprost 0.005 % Latanoprost 0.005 % 08/06/2019 12:00:00 AM EDT 1.0 {drop_into_affected_eye_in_ the_evening} active Latanoprost 0.005 % eCW1 ([facility]) Insulin, Aspart, Human 100 UNT/ML Inject able Solution [NovoLog] NovoLog 100 UNIT/ML NovoLog 100 UNIT/ML 08/06/2019 12:00:00 AM EDT active NovoLog 100 UNIT/ML eCW1 ([facility]) pantoprazole 40 MG Delayed Release Oral Tablet [Proton ix] Protonix 40 MG Protonix 40 MG 08/06/2019 12:00:00 AM EDT 1.0 {tablet} active Protonix 40 MG eCW1 ([facility]) Insulin, Aspart, Human 100 UNT/ML Inject able Solution [NovoLog] NovoLog 100 UNIT/ML NovoLog 100 UNIT/ML 08/06/2019 12:00:00 AM EDT active as directed eCW1 ([facility]) latanoprost 0.05 MG/ML Ophthalmic Solution Latanoprost 0.005 % Latanoprost 0.005 % 08/06/2019 12:00:00 AM EDT 1.0 {drop_into_affected_eye_in_ the_evening} active Latanoprost 0.005 % eCW1 ([facility]) Insulin, Aspart, Human 100 UNT/ML Inject able Solution [NovoLog] NovoLog 100 UNIT/ML NovoLog 100 UNIT/ML 08/06/2019 12:00:00 AM EDT active NovoLog 100 UNIT/ML eCW1 ([facility]) latanoprost 0.05 MG/ML Ophthalmic Solution Latanoprost 0.005 % Latanoprost 0.005 % 08/06/2019 12:00:00 AM EDT 1.0 {drop_into_affected_eye_in_ the_evening} active Latanoprost 0.005 % eCW1 ([facility]) pantoprazole 40 MG Delayed Release Oral Tablet [Proton ix] Protonix 40 MG Protonix 40 MG 08/06/2019 12:00:00 AM EDT 1.0 {tablet} active Protonix 40 MG eCW1 ([facility]) Prednisone 5 MG Oral Tablet PredniSONE 5 MG PredniSONE 5 MG 08/06/2019 12:00:00 AM EDT 1.0 {tablet} active PredniSONE 5 MG eCW1 ([facility]) Sucralfate 1000 MG Oral Tablet Sucralfate 1 GM Sucralfate 1 GM 08/06/2019 12:00:00 AM EDT 1.0 {tablet_on_an_empty_stomach} active Sucralfate 1 GM eCW1 ([facility]) Insulin, Aspart, Human 100 UNT/ML Inject able Solution [NovoLog] NovoLog 100 UNIT/ML NovoLog 100 UNIT/ML 08/06/2019 12:00:00 AM EDT suspended NovoLog 100 UNIT/ML eCW1 ([facility]) latanoprost 0.05 MG/ML Ophthalmic Solution Latanoprost 0.005 % Latanoprost 0.005 % 08/06/2019 12:00:00 AM EDT 1.0 {drop_into_affected_eye_in_ the_evening} active Latanoprost 0.005 % eCW1 ([facility]) Sucralfate 1000 MG Oral Tablet Sucralfate 1 GM Sucralfate 1 GM 08/06/2019 12:00:00 AM EDT 1.0 {tablet_on_an_empty_stomach} active Sucralfate 1 GM eCW1 ([facility]) pantoprazole 40 MG Delayed Release Oral Tablet [Proton ix] Protonix 40 MG Protonix 40 MG 08/06/2019 12:00:00 AM EDT 1.0 {tablet} suspended Protonix 40 MG eCW1 ([facility]) Prednisone 5 MG Oral Tablet PredniSONE 5 MG PredniSONE 5 MG 08/06/2019 12:00:00 AM EDT 1.0 {tablet} active PredniSONE 5 MG eCW1 ([facility]) Citalopram 40 MG Oral Tablet [Celexa] Celexa 40 MG Celexa 40 MG 04/17/2019 12:00:00 AM EST active 1 tab e CW1 ([facility]) Citalopram 40 MG Oral Tablet [Celexa] Celexa 40 MG Celexa 40 MG 04/17/2019 12:00:00 AM EST active Celexa 4 0 MG eCW1 ([facility]) Citalopram 40 MG Oral Tablet [Celexa] Celexa 40 MG Celexa 40 MG 04/17/2019 12:00:00 AM EST active Celexa 4 0 MG eCW1 ([facility]) Citalopram 40 MG Oral Tablet [Celexa] Celexa 40 MG Celexa 40 MG 04/17/2019 12:00:00 AM EST active Celexa 4 0 MG eCW1 ([facility]) Celexa 40 MG UNK 04/17/2019 12:00:00 AM EST activ e 1 tab eCW1 ([facility]) Citalopram 40 MG Oral Tablet [Celexa] Celexa 40 MG Celexa 40 MG 04/17/2019 12:00:00 AM EST active Celexa 4 0 MG eCW1 ([facility]) Citalopram 40 MG Oral Tablet [Celexa] Celexa 40 MG Celexa 40 MG 04/17/2019 12:00:00 AM EST active Celexa 4 0 MG eCW1 ([facility]) Citalopram 40 MG Oral Tablet [Celexa] Celexa 40 MG Celexa 40 MG 04/17/2019 12:00:00 AM EST active Celexa 4 0 MG eCW1 ([facility]) Citalopram 40 MG Oral Tablet [Celexa] Celexa 40 MG Celexa 40 MG 04/17/2019 12:00:00 AM EST active 1 tab e CW1 ([facility]) Citalopram 40 MG Oral Tablet [Celexa] Celexa 40 MG Celexa 40 MG 04/17/2019 12:00:00 AM EST active 1 tab e CW1 ([facility]) Citalopram 40 MG Oral Tablet [Celexa] Celexa 40 MG Celexa 40 MG 04/17/2019 12:00:00 AM EST active Celexa 4 0 MG eCW1 ([facility]) Citalopram 40 MG Oral Tablet [Celexa] Celexa 40 MG Celexa 40 MG 04/17/2019 12:00:00 AM EST active Celexa 4 0 MG eCW1 ([facility]) Citalopram 40 MG Oral Tablet [Celexa] Celexa 40 MG Celexa 40 MG 04/17/2019 12:00:00 AM EST active Celexa 4 0 MG eCW1 ([facility]) Citalopram 40 MG Oral Tablet [Celexa] Celexa 40 MG Celexa 40 MG 04/17/2019 12:00:00 AM EST active Celexa 4 0 MG eCW1 ([facility]) Citalopram 40 MG Oral Tablet [Celexa] Celexa 40 MG Celexa 40 MG 04/17/2019 12:00:00 AM EST active Celexa 4 0 MG eCW1 ([facility]) Citalopram 40 MG Oral Tablet [Celexa] Celexa 40 MG Celexa 40 MG 04/17/2019 12:00:00 AM EST active Celexa 4 0 MG eCW1 ([facility]) Citalopram 40 MG Oral Tablet [Celexa] Celexa 40 MG Celexa 40 MG 04/17/2019 12:00:00 AM EST active Celexa 4 0 MG eCW1 ([facility]) Citalopram 40 MG Oral Tablet [Celexa] Celexa 40 MG Celexa 40 MG 04/17/2019 12:00:00 AM EST active Celexa 4 0 MG eCW1 ([facility]) Citalopram 40 MG Oral Tablet [Celexa] Celexa 40 MG Celexa 40 MG 04/17/2019 12:00:00 AM EST active Celexa 4 0 MG eCW1 ([facility]) Citalopram 40 MG Oral Tablet [Celexa] Celexa 40 MG Celexa 40 MG 04/17/2019 12:00:00 AM EST active Celexa 4 0 MG eCW1 ([facility]) Citalopram 40 MG Oral Tablet [Celexa] Celexa 40 MG Celexa 40 MG 04/17/2019 12:00:00 AM EST active Celexa 4 0 MG eCW1 ([facility]) Citalopram 40 MG Oral Tablet [Celexa] Celexa 40 MG Celexa 40 MG 04/17/2019 12:00:00 AM EST active Celexa 4 0 MG eCW1 ([facility]) Citalopram 40 MG Oral Tablet [Celexa] Celexa 40 MG Celexa 40 MG 04/17/2019 12:00:00 AM EST active Celexa 4 0 MG eCW1 ([facility]) Citalopram 40 MG Oral Tablet [Celexa] Celexa 40 MG Celexa 40 MG 04/17/2019 12:00:00 AM EST active Celexa 4 0 MG eCW1 ([facility]) Citalopram 40 MG Oral Tablet [Celexa] Celexa 40 MG Celexa 40 MG 04/17/2019 12:00:00 AM EST active Celexa 4 0 MG eCW1 ([facility]) Citalopram 40 MG Oral Tablet [Celexa] Celexa 40 MG Celexa 40 MG 04/17/2019 12:00:00 AM EST active Celexa 4 0 MG eCW1 ([facility]) Citalopram 40 MG Oral Tablet [Celexa] Celexa 40 MG Celexa 40 MG 04/17/2019 12:00:00 AM EST active 1 tab e CW1 ([facility]) Citalopram 40 MG Oral Tablet [Celexa] Celexa 40 MG Celexa 40 MG 04/17/2019 12:00:00 AM EST active Celexa 4 0 MG eCW1 ([facility]) Citalopram 40 MG Oral Tablet [Celexa] Celexa 40 MG Celexa 40 MG 04/17/2019 12:00:00 AM EST active Celexa 4 0 MG eCW1 ([facility]) Citalopram 40 MG Oral Tablet [Celexa] Celexa 40 MG Celexa 40 MG 04/17/2019 12:00:00 AM EST active Celexa 4 0 MG eCW1 ([facility]) Citalopram 40 MG Oral Tablet [Celexa] Celexa 40 MG Celexa 40 MG 04/17/2019 12:00:00 AM EST active Celexa 4 0 MG eCW1 ([facility]) Citalopram 40 MG Oral Tablet [Celexa] Celexa 40 MG Celexa 40 MG 04/17/2019 12:00:00 AM EST active Celexa 4 0 MG eCW1 ([facility]) Citalopram 40 MG Oral Tablet [Celexa] Celexa 40 MG Celexa 40 MG 04/17/2019 12:00:00 AM EST active Celexa 4 0 MG eCW1 ([facility]) Citalopram 40 MG Oral Tablet [Celexa] Celexa 40 MG Celexa 40 MG 04/17/2019 12:00:00 AM EST active Celexa 4 0 MG eCW1 ([facility]) Citalopram 40 MG Oral Tablet [Celexa] Celexa 40 MG Celexa 40 MG 04/17/2019 12:00:00 AM EST active Celexa 4 0 MG eCW1 ([facility]) Citalopram 40 MG Oral Tablet [Celexa] Celexa 40 MG Celexa 40 MG 04/17/2019 12:00:00 AM EST active Celexa 4 0 MG eCW1 ([facility]) Citalopram 40 MG Oral Tablet [Celexa] Celexa 40 MG Celexa 40 MG 04/17/2019 12:00:00 AM EST active Celexa 4 0 MG eCW1 ([facility]) Citalopram 40 MG Oral Tablet [Celexa] Celexa 40 MG Celexa 40 MG 04/17/2019 12:00:00 AM EST active Celexa 4 0 MG eCW1 ([facility]) Citalopram 40 MG Oral Tablet [Celexa] Celexa 40 MG Celexa 40 MG 04/17/2019 12:00:00 AM EST active Celexa 4 0 MG eCW1 ([facility]) Insurance Providers Payer name Policy type / Coverage type Policy ID Covered democrat ID Covered democrat's relationship to wright Policy Wright Plan Information MEDICARE COMPLETE [id number] SP [id number] EMEDNY [id number] SP [id number] MEDICARE COMPLETE [id number] SP [id number] [facility] [id number] SP [id number] MEDICARE COMPLETE-UHC O [id number] S [id number] MEDICAID M [id number] [facility] [id number] S [id number] MEDICAID [id number] MEDICARE [id number] SP [id number] MEDICARE COMPLETE-UHC O [id number] S [id number] [facility] MEDICARE [id number] S [id number] [facility] [id number] SP [id number] [place] [address] [id number] SP [id number] MEDICARE [id number] SP [id number] EMEDNY [id number] SP [id number] MEDICARE [id number] SP [id number] MEDICARE COMPLETE [id number] SP [id number] MEDICARE COMPLETE [id number] SP [id number] WELLCARE [id number] SP [id number] WELLCARE [id number] SP [id number] WELLCARE O [id number] S [id number] WELLCARE [id number] S [id number] WELLCARE O [id number] S [id number] MEDICARE [id number] SP [id number] MEDICAID [id number] SP [id number] MEDICARE C [id number] S [id number] [id number] MEDICAID [id number] SP [id number] WELLCARE [id number] S [id number] [id number] MEDICARE [id number] S [id number] WELLCARE [id number] S [id number] MEDICARE -RECURRING [id number] 18 [id number] MEDICAID -RECURRING [id number] ANSI-Medicaid [id number] ANSI-Medicare Part B [id number] ANSI-Medicaid [id number] ANSI-Medicare Part B [id number] ANSI-Medicare Part B [id number] ANSI-Medicaid [id number] ANSI-Medicare Part B [id number] ANSI-Medicaid [id number] ANSI-Medicaid [id number] ANSI-Medicare Part B [id number] ANSI-Medicaid [id number] ANSI-Medicare Part B [id number] ANSI-Medicaid [id number] ANSI-Medicare Part B [id number] ANSI-Medicaid [id number] ANSI-Medicare Part B [id number] ANSI-Medicare Part B [id number] ANSI-Medicaid [id number] ANSI-Medicare Part B [id number] ANSI-Medicaid [id number] ANSI-Medicare Part B [id number] ANSI-Medicaid [id number] ANSI-Medicare Part B [id number] ANSI-Medicaid [id number] ANSI-Medicaid [id number] ANSI-Medicare Part B [id number] ANSI-Medicare Part B [id number] ANSI-Medicaid [id number] MEDICARE -RECURRING [id number] ANSI-Medicaid [id number] ANSI-Medicare Part B [id number] ANSI-Medicaid [id number] ANSI-Medicare Part B [id number] ANSI-Medicare Part B [id number] ANSI-Medicaid [id number] Medicaid [place] Med[place] Part B [id number] [place] Medicare Primary [id number] Self [id number] ANSI-Medicare Part B [id number] ANSI-Medicaid [id number] ANSI-Medicaid [id number] ANSI-Medicare Part B [id number] ANSI-Medicaid [id number] ANSI-Medicare Part B [id number] ANSI-Medicare Part B [id number] ANSI-Medicaid [id number] ANSI-Medicare Part B [id number] ANSI-Medicaid [id number] MEDICARE [id number] ANSI-Medicare Part B [id number] ANSI-Medicaid [id number] ANSI-Medicaid [id number] ANSI-Medicare Part B [id number] ANSI-Medicare Part B [id number] ANSI-Medicaid [id number] ANSI-Medicaid [id number] ANSI-Medicare Part B [id number] ANSI-Medicaid [id number] ANSI-Medicare Part B [id number] ANSI-Medicare Part B [id number] ANSI-Medicaid [id number] ANSI-Medicaid [id number] ANSI-Medicare Part B [id number] ANSI-Medicaid [id number] ANSI-Medicare Part B [id number] ANSI-Medicaid [id number] ANSI-Medicare Part B [id number] ANSI-Medicaid [id number] ANSI-Medicare Part B [id number] ANSI-Medicaid [id number] ANSI-Medicare Part B [id number] ANSI-Medicare Part B [id number] ANSI-Medicaid [id number] MEDICARE [id number] SP [id number] ANSI-Medicare Part B [id number] ANSI-Medicaid [id number] [employer]RIEL RHONDA [id number] SELF [id number] MEDICARE [id number] SELF [id number] A MEDICARE PART A [id number] Patient [id number] COM[employer] GABRIEL RHONDA UNAVAILABLE SELF UNAVAILABLE PERSONAL PAY UNAVAILABLE SELF UNAVA ILABLE MEDICARE C [id number] S [id number] A [place] MEDICARE PART B C [id number] S [id number] MEDICAID [id number] SP [id number] Medicaid [place] [id number] Self [id number] [place] Primary [id number] Self [id number] S ADMINISTRATORS, [facility] C [id number] S [id number] [place] [id number] Self [id number] [place] Primary [id number] Self [id number] [place] B [id number] Self [id number] [place] Primary [id number] Self [id number] MEDICAID [id number] SP [id number] MEDICAID [id number] SP [id number] MEDICAID M [id number] Self [id number] MEDICARE A [id number] Self [id number] MEDICAID -O/P [id number] MEDICARE -O/P [id number] 18 [id number] OTHER WORKERS COMPENSATION [id number] SP [id number] MEDICAID -CLINIC [id number] MEDICARE -CLINIC [id number] 18 13 [id number] WORKMANS COMPENSATION -O/ [id number] 18 [id number] MEDICAID -PHYSICIAN [id number] WORKMANS COMPENSATION -O/P [id number] 18 [id number] MEDICARE -PHYSICIAN [id number] 18 [id number] Problems, Conditions, and Diagnoses Code Display Name Description Problem Type Effective Dates Data Source(s) S88.111A [id number] Below-knee amputation of right lower extr emity Problem 04/06/2020 12:00:00 AM EST eCW1 ([facility]) Z89.512 [id number] 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 Problem 03/11/2020 12:00:00 AM EST eCW1 ([facility]) Z89.511 [id number] Acquired absence of right leg below knee Problem 03/11/2020 12:00:00 AM EST eCW1 ([facility]) S88.119A [id number] Amputation below knee Problem 02/24/2020 12: 00:00 AM EST eCW1 ([facility]) M86.9 [id number] Osteomyelitis of right foot, unspecif ied type Problem 02/19/2020 12:00:00 AM EST eCW1 ([facility]) [id number] O/E - Amputated left below knee O/E - Amputated left below knee Problem 01/26/2020 12:00:00 AM EDT [facility] ([facility] [id number] Pain in limb Pain in limb Problem 01/26/2020 12:00:00 A M EDT [facility] ([facility] [id number] Gangrenous disorder Gangrenous disorder Problem 1 12:00:00 AM EDT [facility] ([facility] [id number] Pressure ulcer of right foot stage 4 Pre ssure ulcer of right foot stage 4 Problem 01/26/2020 12:00:00 AM EDT [facility] ([facility] [id number] Type 2 diabetes mellitus with ulcer Type 2 diabetes mellitus with ulcer Problem 01/26/2020 12:00:00 AM EDT [facility] ([facility] L97.514 [id number] 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 Problem 12/31/2019 12:00:00 AM EDT eCW1 ([facility]) E11.621 [id number] Type 2 diabetes mellitus with foot ulcer Problem 12/31/2019 12:00:00 AM EDT eCW1 ([facility]) E10.69 [id number] Type 1 diabetes mellitus with ot her specified complication Problem 10/17/2019 12:00:00 AM EDT eCW1 ([facility]) L97.519 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 Non-pressure chronic ulcer of other part of right foot with unspecified severity Problem 09/18/2019 12:00:00 AM EDT eCW1 ([facility]) E10.621 Foot ulcer due to type 1 diabetes [facility] Type 1 diabetes mellitus with foot ulcer Problem 09/18/2019 12:00:00 AM EDT eCW1 ([facility]) Z79.4 shelter (current) use of insulin CASING FLUID TENDER (CU RRENT) USE OF INSULIN Diagnosis 03/02/2020 02:32:00 PM [facility] Z96.41 Presence of insulin pump (external) (int ernal) PRESENCE OF INSULIN PUMP (EXTERNAL) (INTERNAL) Diagnosis 03/02/2020 02:32:00 PM [facility] E10.65 Type 1 diabetes mellitus with hyperglyce sera TYPE 1 DIABETES MELLITUS WITH HYPERGLYCEMIA Diagnosis 03/02/2020 02:32:00 PM [facility] E27.40 Unspecified adrenocortical insufficiency UNSPECIFIED ADRENOCORTICAL INSUFFICIENCY Diagnosis 04/24/2019 03:04:00 PM [facility] Surgeries/Procedures Procedure Description Date Indications Data Source(s) Amputation Below Knee 03/03/2020 12:00:00 AM [facility] ([facility], ) [facility] outpatient clinic visit for assessment and ma nagement of a patient Hospital Outpatient Clinic Visit 03/02/2020 12:00:00 AM [facility] COLLECTION VENOUS BLOOD VENIPUNCTURE ROUTINE VENIPUNCTURE 12:00:00 AM [facility] HEMOGLOBIN GLYCOSYLATED A1C GLYCOSYLATED HEMOGLOBIN TEST 04/2019 12:00:00 AM [facility] FINE NEEDLE ASPIRATION W/O IMAGING GUIDANCE 02/23/2020 12:00:00 AM EST eCW1 ([facility]) Amputation Metatarsal W/Toe 01/28/2020 12:00:00 AM EDT [facility] ([facility] FINE NEEDLE ASPIRATION W/O IMAGING GUIDANCE 01/19/2020 12:00:00 AM EDT eCW ([facility]) FINE NEEDLE ASPIRATION W/O IMAGING GUIDANCE 01/09/2020 12:00:00 AM EDT eCW1 ([facility]) Revascularization,Endovascular,Transluminal Angioplasty 12/31/2019 12:00:00 AM EDT [facility] ([facility] REVSC OPN/PRQ TIB/FABIENNE W/ANGIOPLASTY UNI 12/31/2019 12 :00:00 AM EDT [facility] ([facility], ) REVSC OPN/PRQ TIB/FABIENNE W/ANGIOPLASTY UNI EA VSL 2019 12:00:00 AM EDT [facility] ([facility], ) Moderate Sedation Services; Same Phys Intl 15 Mins; PT >= 5 Years 12/31/2019 12:00:00 AM EDT [facility] ([facility], ) Angiography Internal Corotid Of The Ipsil Intrac Circulation 10/08/2019 12:00:00 AM EDT [facility] ([facility], ) Each Intracranial Branch Of The Internal Corotid/Vertebral 10/08/2019 12:00:00 AM EDT [facility] ([facility]) REVSC OPN/PRQ TIB/FABIENNE W/ANGIOPLASTY UNI EA VSL 2019 12:00:00 AM EDT [facility] ([facility]) REVSC OPN/PRQ TIB/FABIENNE W/ANGIOPLASTY UNI EA VSL 2019 12:00:00 AM EDT [facility] ([facility]) Moderate Sedation Services; Same Phys Intl 15 Mins; PT >= 5 Years 10/08/2019 12:00:00 AM EDT [facility] ([facility], ) Endoscopy Upper GI Biopsy 09/17/2019 12:00:00 AM EDT [facility] ([facility], ) Office Visit, Est Pt., Level 2 FC 08/14/2019 12:00:00 AM EDT eCW1 ([facility]) TRANS CARE MGMT 7 DAY DISCH 08/14/2019 12:00:00 AM EDT eCW ([facility]) Transitional Care NO CHARGE Visit 08/07/2019 12:00:00 AM EDT eCW ([facility]) DSTRJ LESION ANUS EXTENSIVE 06/06/2019 12:00:00 AM EST eCW1 ([facility]) GLUC BLD GLUC MNTR DEV CLEARED FDA SPEC HOME USE GLUCOSE BLO OD TEST 04/24/2019 12:00:00 AM [facility] BASIC METABOLIC PANEL CALCIUM TOTAL METABOLIC PANEL TOTAL CA 04/24/2019 12:00:00 AM [facility] Results ID Date Data Source [id number] 05/02/2020 02:06:00 AM EST [facility] Name Value Range Interpretation Code Description Data Mireille rce(s) Supporting Document(s) SARS coronavirus 2 RNA [Presence] in Res piratory specimen by DAILY with probe detection [facility] This lab was ordered by [facility] a nd reported by [facility]. ID Date Data Source [id number] 04/29/2020 10:04:00 AM EST [facility] Name Value Range Interpretation Code Description Data Mireille rce(s) Supporting Document(s) SARS COVID ANTIGEN POSITIVE [facility] This lab was ordered by [facility] a nd reported by [facility]. ID Date Data Source [id number] COVID AG (Point of Care) 04/29/2020 12:00:00 AM EST eC W1 ([facility]) Name Value Range Interpretation Code Description Data Mireille rce(s) Supporting Document(s) POSITIVE NEGATIVE [place] COVID ANTIGEN eCW1 ([facility]) ID Date Data Source [id number] 04/12/2020 08:23:00 PM EST [facility] Name Value Range Interpretation Code Description Data Mireille rce(s) Supporting Document(s) SARS-CoV-2 (COVID 19) NEGATIVE - SARS-CoV-2 (COVID19) [facility] This lab was ordered by [facility] a nd reported by [facility]. ID Date Data Source [id number] 03/16/2020 05:11:00 AM EST [facility] Name Value Range Interpretation Code Description Data Mireille rce(s) Supporting Document(s) Hemoglobin A1C % Less than 5.7% Above high normal [facility] HBA1C: Normal: Less than 5.7% Prediabetes: 5.7% to 6.4% Diabetes: 6.5% or higher HA1C % vs Estimated Average Glucose (eAG) % eAG % eAG 6% 126 mg/dL 10% 240 mg/dL 7% 154 mg/dL 11% 269 mg/dL 8% 183 mg/dL 12% 298 mg/dL 9% 212 mg/dL Reference: [place] [employer], 2017 ID Date Data Source [id number] 02/28/2020 11:00:00 AM EST [facility] Name Value Range Interpretation Code Description Data Mireille rce(s) Supporting Document(s) SARS coronavirus 2 RNA [facility] This lab was ordered by [facility] and reported by [facility]. ID Date Data Source [id number] 01/28/2020 04:53:00 PM EDT [facility] ([facility] Name Value Range Interpretation Code Description Data Mireille rce(s) Supporting Document(s) Glucose [Mass/volume] in Capillary blood by Glucometer 154 mg/dL 80-115 Above high normal [facility] ([facility] ID Date Data Source [id number] 01/28/2020 04:09:00 PM EDT [facility] ([facility] Name Value Range Interpretation Code Description Data Mireille rce(s) Supporting Document(s) Surgical pathology study Laboratory test result [facility] ([facility] FINAL DIAGNOSIS Right hallux, 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 Margin appears viable. 01/30/2020956 CLINICAL DIAGNOSIS Right hallux gangrene 01/29/20201303 GROSS DIAGNOSIS Received in formalin labeled "right hallux" and consists of a fragment of hallux 2.5 x 1 x 1 cm. An area of gangrenous changes is noted. Production Trainer sections are submitted in two after decalcification. -OA 01/29/20201303 Signed SALINA SAUNDERS MD 01/30/2020956 ID Date Data Source [id number] 01/28/2020 11:26:00 AM EDT [facility] ([facility] Name Value Range Interpretation Code Description Data Mireille rce(s) Supporting Document(s) Glucose [Mass/volume] in Capillary blood by Glucometer 91 mg/dL 80- 115 [facility] ID Date Data Source [id number] 12/31/2019 11:17:00 AM EDT [facility] ([facility], ) Name Value Range Interpretation Code Description Data Mireille rce(s) Supporting Document(s) Glucose [Mass/volume] in Capillary blood by Glucometer 142 mg/dL 80-115 Above high normal [facility] ([facility]) ID Date Data Source [id number] 12/31/2019 08:51:00 [place] ([facility]) Name Value Range Interpretation Code Description Data Mireille rce(s) Supporting Document(s) Glucose [Mass/volume] in Capillary blood by Glucometer 131 mg/dL 80-115 Above high normal [facility] ([facility]) ID Date Data Source [id number] 12/17/2019 10:05:00 AM EDT [facility] ([facility]) Name Value Range Interpretation Code Description Data Mireille rce(s) Supporting Document(s) Glucose, Fasting 158 mg/dL 70-100 Above high normal [facility] ([facility]) Blood Urea Nitrogen 15 mg/dL 7-18 Normal (applies to non-nume nelson results) [facility] ([facility]) Creatinine For GFR 1.36 mg/dL 0.70-1.30 Above high normal [facility] ([facility]) Glomerular Filtration Rate 56.9 Normal (applies to n on-numeric results) [facility]) <content>Units are mL/min/1.73 m2</content>
<content></content>
<content>Chronic Kidney Disease Staging per NKF:</content>
<content></content>
<content>Stage I & II GFR >=60 Normal to Mildly Decreased</content>
<content>Stage III GFR 30- 59 Moderately Decreased</content>
<content>Stage IV GFR 15-29 Severely Decreased</content>
<content>Stage V GFR <15 Very Little GFR Left</content>
<content>ESRD GFR <15 on ELECTRICIAN YARD</content>
<content></content> Chloride Level 105 meq/L 98-107 Normal (applies to non-numeric r esults) [facility] ([facility]) Potassium Serum 4.6 meq/L 3.5-5.1 Normal (applies to non-numeric results) [facility] ([facility]) Sodium Level 139 meq/L 136-145 Normal (applies to non-numeric res ults) [facility]) Calcium Level 9.3 mg/dL 8.8-10.2 Normal (applies to non-numeric re sults) [facility]) Anion Gap 7 meq/L 8-16 Below low normal [facility] ( [facility]) Carbon Dioxide Level 27 meq/L 21-32 Normal (applies to non-num gage results) [facility]) ID Date Data Source [id number] 12/17/2019 10:05:00 AM EDT [facility]) Name Value Range Interpretation Code Description Data Mireille rce(s) Supporting Document(s) White Blood Count 6.8 10 4.0-10.0 Normal (applies to non-numeri c results) [facility] ([facility]) Red Blood Count 3.47 10 4.30-6.10 Below low normal [facility] ([facility]) Hemoglobin 11.2 g/dL 13.5-17.5 Below low normal [facility]) Hematocrit 32.8 % 42.0-52.0 Below low normal [facility] ( [facility]) Mean Corpuscular Volume 94.5 fl 80.0-96.0 Normal ( applies to non-numeric results) [facility] ([facility]) Mean Corpuscular Hemoglobin 32.3 pg 27.0-33.0 Norm al (applies to non-numeric results) [facility] ([facility]) Mean Corpuscular HGB Conc 34.1 g/dL 32.0-36.5 Normal (applies to non-numeric results) [facility]) Red Cell Distribution Width 12.1 % 11.5-14.5 Norm al (applies to non-numeric results) [facility]) Nucleated Red Blood Cell % 0.0 % 0-0 Normal (applies to n on-numeric results) [facility]) Platelet Count, Automated 214 10 150-450 Normal (applies to non-numeric results) [facility] ([facility], ) ID Date Data Source [id number] 12/01/2019 06:43:00 PM EDT [facility] Name Value Range Interpretation Code Description Data Mireille rce(s) Supporting Document(s) Triglycerides 101 mg/dL 0-150 Normal (applies to non-numeric re sults) [facility] Cholesterol 163 mg/dL 0-200 Normal (applies to non-numeric resu lts) [facility] LDL Cholesterol,Direct 77 mg/dL <100 Normal (applies to non-n umeric results) [facility] LDL Interpretative Data Optimal <100 (mg/dL) Near optimal 100-129 (mg/dL) Borderline High 130-159 (mg/dL) High 160-189 (mg/dL) Very High >190 (mg/dL) HDL Cholesterol 73 mg/dL 40-60 Above high normal [facility] CHOL/HDL Ratio Normal (applies to non-numeric r esults) [facility] NATIONAL CHOLESTEROL GUIDEL [facility], [...] Average 13.5 11.0 ID Date Data Source [id number] 12/01/2019 06:43:00 PM EDT [facility] Name Value Range Interpretation Code Description Data Mireille rce(s) Supporting Document(s) Sodium 138 mmol/L 137-145 Normal (applies to non-numeric resul ts) [facility] Potassium 3.5-5.1 Normal (applies to non-numeric resul ts) [facility] Chloride 105 mmol/L 98-112 Normal (applies to non-numeric resul ts) [facility] Carbon Dioxide CO2 22.0-33.0 Normal (applies to non-numer ic results) [facility] Anion Gap 4.0-11.0 Normal (applies to non-numeric resul ts) [facility] BUN 16 mg/dL 9-20 Normal (applies to non-numeric resul ts) [facility] Creatinine 0.80-1.50 Normal (applies to non-numeric resul ts) [facility] GFR 48 mL/min >60 Below low normal [facility] Result based on MDRD formula. Glucose Level 66 mg/dL 74-99 Below low normal [facility] The reference range is only applicable w hen fasting. Calcium-Uncorrected 8.4-10.2 Normal (applies to non-nume nelson results) [facility] Corrected Calcium 8.4-10.2 Normal (applies to non-numeri c results) [facility] ID Date Data Source [id number] 12/01/2019 06:43:00 PM EDT [facility] Name Value Range Interpretation Code Description Data Mireille rce(s) Supporting Document(s) Thyroid Stimulate Hormone TSH 0.358-3.740 No rmal (applies to non-numeric results) [facility] ID Date Data Source [id number] 12/01/2019 06:40:00 PM EDT [facility] Name Value Range Interpretation Code Description Data Mireille rce(s) Supporting Document(s) Creatinine,Urine Normal (applies to non-numeric results) [facility] Interpret with care as there is no estab lished reference range associated with this assay's methodology that pertains to this particular sex and/or age. Microalbumin,Urine <1.7 Normal (applies to non-numer ic results) [facility] Albumin/Creatinine Ratio,Urine Normal (applies to non-numeric results) [facility] Reference Ranges for Microalbumin,spot: Normal <30 ug/mg creatinine Microalbuminuria 30-300 ug/mg creatinine Clinical Albuminuria >300 ug/mg creatinine ID Date Data Source [id number] 12/01/2019 06:23:00 PM EDT [facility] Name Value Range Interpretation Code Description Data Mireille rce(s) Supporting Document(s) Hemoglobin A1C % Less than 5.7% Above high normal [facility] HBA1C: Normal: Less than 5.7% Prediabetes: 5.7% to 6.4% Diabetes: 6.5% or higher HA1C % vs Estimated Average Glucose (eAG) % eAG % eAG 6% 126 mg/dL 10% 240 mg/dL 7% 154 mg/dL 11% 269 mg/dL 8% 183 mg/dL 12% 298 mg/dL 9% 212 mg/dL Reference: [place] [employer], 2017 ID Date Data Source [id number] 10/08/2019 12:37:00 PM EDT [facility] ([facility]) Name Value Range Interpretation Code Description Data Mireille rce(s) Supporting Document(s) Glucose [Mass/volume] in Capillary blood by Glucometer 190 mg/dL 80-115 Above high normal [facility] ([facility]) ID Date Data Source [id number] 10/08/2019 09:46:00 AM EDT [facility] ([facility]) Name Value Range Interpretation Code Description Data Mireille rce(s) Supporting Document(s) Glucose [Mass/volume] in Capillary blood by Glucometer 208 mg/dL 80-115 Above high normal [facility] ([facility]) ID Date Data Source [id number] 10/08/2019 08:33:00 AM EDT [facility] ([facility]) Name Value Range Interpretation Code Description Data Mireille rce(s) Supporting Document(s) Glucose, Fasting 60 mg/dL 70-100 Below low normal [facility] ([facility]) Glomerular Filtration Rate 48.9 Below low normal [facility] ([facility]) <content>Units are mL/min/1.73 m2</content>
<content></content>
<content>Chronic Kidney Disease Staging per NKF:</content>
<content></content>
<content>Stage I & II GFR >=60 Normal to Mildly Decreased</content>
<content>Stage III GFR 30- 59 Moderately Decreased</content>
<content>Stage IV GFR 15-29 Severely Decreased</content>
<content>Stage V GFR <15 Very Little GFR Left</content>
<content>ESRD GFR <15 on ELECTRICIAN YARD</content>
<content></content> Creatinine For GFR 1.55 mg/dL 0.70-1.30 Above high normal [facility] ([facility]) Blood Urea Nitrogen 18 mg/dL 7-18 Normal (applies to non-nume nelson results) [facility] ([facility]) Potassium Serum 4.3 meq/L 3.5-5.1 Normal (applies to non-numeric results) [facility] ([facility]) Chloride Level 107 meq/L 98-107 Normal (applies to non-numeric r esults) [facility] ([facility]) Sodium Level 141 meq/L 136-145 Normal (applies to non-numeric res ults) [facility] ([facility]) Carbon Dioxide Level 26 meq/L 21-32 Normal (applies to non-num gage results) [facility] ([facility]) Anion Gap 8 meq/L 8-16 Normal (applies to non-numeric resul ts) [facility] ([facility]) Calcium Level 9.3 mg/dL 8.8-10.2 Normal (applies to non-numeric re sults) [facility] ([facility]) ID Date Data Source [id number] 10/08/2019 08:33:00 AM EDT [facility]) Name Value Range Interpretation Code Description Data Mireille rce(s) Supporting Document(s) White Blood Count 7.1 10 4.0-10.0 Normal (applies to non-numeri c results) [facility] ([facility]) Red Blood Count 3.97 10 4.30-6.10 Below low normal [facility] ([facility]) Hemoglobin 12.6 g/dL 13.5-17.5 Below low normal [facility] ( [facility]) Mean Corpuscular Volume 97.0 fl 80.0-96.0 Above high normal [facility] ([facility]) Hematocrit 38.5 % 42.0-52.0 Below low normal [facility] ( [facility]) Mean Corpuscular HGB Conc 32.7 g/dL 32.0-36.5 Normal (applies to non-numeric results) [facility] ([facility]) Red Cell Distribution Width 12.1 % 11.5-14.5 Norm al (applies to non-numeric results) [facility]) Mean Corpuscular Hemoglobin 31.7 pg 27.0-33.0 Norm al (applies to non-numeric results) [facility] ([facility]) Platelet Count, Automated 206 10 150-450 Normal (applies to non-numeric results) [facility] ([facility]) Nucleated Red Blood Cell % 0.0 % 0-0 Normal (applies to n on-numeric results) [facility] ([facility]) ID Date Data Source [id number] 09/17/2019 11:28:00 AM EDT [facility] ([facility]) Name Value Range Interpretation Code Description Data Mireille rce(s) Supporting Document(s) Surgical pathology study Laboratory test result [facility]) FINAL DIAGNOSIS A - Duodenal bulb, [...] MD 09/18/2019 1420 ID Date Data Source [id number] 09/14/2019 10:40:00 AM EDT [facility] Name Value Range Interpretation Code Description Data [facility] rce(s) Supporting Document(s) SARS CORONAVIRUS 2 RNA [facility] This lab was ordered by [facility] and reported by [facility]. ID Date Data Source [id number] 04/24/2019 06:44:00 PM EST [facility] Name Value Range Interpretation Code Description Data Mireille rce(s) Supporting Document(s) Sodium 140 mmol/L 137-145 Normal (applies to non-numeric resul ts) [facility] Potassium 3.5-5.1 Normal (applies to non-numeric resul ts) [facility] Chloride 105 mmol/L 98-112 Normal (applies to non-numeric resul ts) [facility] Carbon Dioxide CO2 22.0-33.0 Normal (applies to non-numer ic results) [facility] Anion Gap 4.0-11.0 Normal (applies to non-numeric resul ts) [facility] BUN 14 mg/dL 9-20 Normal (applies to non-numeric resul ts) [facility] Creatinine 0.80-1.50 Normal (applies to non-numeric resul ts) [facility] GFR 52 mL/min >60 Below low normal [facility] Result based on MDRD formula. Glucose Level 67 mg/dL 74-99 Below low normal [facility] The reference range is only applicable w hen fasting. Calcium-Uncorrected 8.4-10.2 Normal (applies to non-nume nelson results) [facility] Corrected Calcium 8.4-10.2 Normal (applies to non-numeri c results) [facility] ID Date Data Source [id number] 04/24/2019 06:41:00 PM EST [facility] Name Value Range Interpretation Code Description Data Mireille rce(s) Supporting Document(s) Hemoglobin A1C % Less than 5.7% Above high normal [facility] HBA1C: Normal: Less than 5.7% Prediabetes: 5.7% to 6.4% Diabetes: 6.5% or higher HA1C % vs Estimated Average Glucose (eAG) % eAG % eAG 6% 126 mg/dL 10% 240 mg/dL 7% 154 mg/dL 11% 269 mg/dL 8% 183 mg/dL 12% 298 mg/dL 9% 212 mg/dL Reference: [employer], 2017 Procedure Social History Code Duration Value Status Description Data Source(s ) Smoking 05/05/2020 12:00:00 AM EST Former Smoker completed Former Smoker eCW1 ([facility]) Smoking 05/05/2020 12:00:00 AM EST Former Smoker completed Former Smoker eCW1 ([facility]) Smoking 04/29/2020 12:00:00 AM EST Former Smoker completed Former Smoker eCW1 ([facility]) Smoking 04/06/2020 12:00:00 AM EST Former Smoker completed Former Smoker eCW1 ([facility]) Smoking 04/06/2020 12:00:00 AM EST Former Smoker completed Former Smoker eCW1 ([facility]) Smoking 04/06/2020 12:00:00 AM EST Former Smoker completed Former Smoker eCW1 ([facility]) Smoking 04/06/2020 12:00:00 AM EST Former Smoker completed Former Smoker eCW1 ([facility]) Smoking 04/06/2020 12:00:00 AM EST Former Smoker completed Former Smoker eCW1 ([facility]) Smoking 04/06/2020 12:00:00 AM EST Former Smoker completed Former Smoker eCW1 ([facility]) Smoking 04/06/2020 12:00:00 AM EST Former Smoker completed Former Smoker eCW1 ([facility]) Smoking 04/05/2020 12:00:00 AM EST Non Smoker completed Non Smoke r MEDENT ([facility], ) Smoking 02/25/2020 12:00:00 AM EST Former Smoker completed Former Smoker eCW1 ([facility]) Smoking 02/25/2020 12:00:00 AM EST Former Smoker completed Former Smoker eCW1 ([facility]) Smoking 02/25/2020 12:00:00 AM EST Former Smoker completed Former Smoker eCW1 ([facility]) Smoking 02/25/2020 12:00:00 AM EST Former Smoker completed Former Smoker eCW1 ([facility]) Smoking 02/25/2020 12:00:00 AM EST Former Smoker completed Former Smoker eCW1 ([facility]) Smoking 02/25/2020 12:00:00 AM EST Former Smoker completed Former Smoker eCW1 ([facility]) Smoking 02/25/2020 12:00:00 AM EST Former Smoker completed Former Smoker eCW1 ([facility]) Smoking 02/24/2020 12:00:00 AM EST Former Smoker completed Former Smoker eCW1 ([facility]) Smoking 02/19/2020 12:00:00 AM EST Former Smoker completed Former Smoker eCW1 ([facility]) Smoking 02/19/2020 12:00:00 AM EST Former Smoker completed Former Smoker eCW1 ([facility]) Smoking 02/19/2020 12:00:00 AM EST Former Smoker completed Former Smoker eCW1 ([facility]) Smoking 02/09/2020 12:00:00 AM EST Former Smoker completed Former Smoker eCW1 ([facility]) Smoking 02/09/2020 12:00:00 AM EST Former Smoker completed Former Smoker eCW1 ([facility]) Smoking 01/19/2020 12:00:00 AM EDT Former Smoker completed Former Smoker eCW1 ([facility]) Smoking 01/19/2020 12:00:00 AM EDT Former Smoker completed Former Smoker eCW1 ([facility]) Smoking 01/19/2020 12:00:00 AM EDT Former Smoker completed Former Smoker eCW1 ([facility]) Smoking 09/18/2019 12:00:00 AM EDT Former Smoker completed Former Smoker eCW1 ([facility]) Smoking 09/18/2019 12:00:00 AM EDT Former Smoker completed Former Smoker eCW1 ([facility]) Smoking 09/18/2019 12:00:00 AM EDT Former Smoker completed Former Smoker eCW1 ([facility]) Smoking 09/18/2019 12:00:00 AM EDT Former Smoker completed Former Smoker eCW1 ([facility]) Smoking 08/14/2019 12:00:00 AM EDT Former Smoker completed Former Smoker eCW1 ([facility]) Smoking 08/14/2019 12:00:00 AM EDT Former Smoker completed Former Smoker eCW1 ([facility]) Smoking 08/14/2019 12:00:00 AM EDT Former Smoker completed Former Smoker eCW1 ([facility]) Smoking 08/14/2019 12:00:00 AM EDT Former Smoker completed Former Smoker eCW1 ([facility]) Vital Signs ID Date Data Source UNK Name Value Range Interpretation Code Description Data Source(s) Diastolic blood pressure 42 mm[Hg] 42 mm[Hg] eCW1 ([facility]) Systolic blood pressure 91 mm[Hg] 91 mm[Hg] e CW1 ([facility]) Body temperature 98.7 [degF] 98.7 [degF] eCW1 ( [facility]) Respiratory rate 20 /min 20 /min eCW1 ([facility]) Heart rate 89 /min 89 /min eCW1 ([facility]) Body mass index (BMI) [Ratio] 22.89 kg/m2 22.89 kg/m2 eCW1 ([facility]) Body height 69 [in_i] 69 [in_i] eCW1 ([facility]) Body weight 155 [lb_av] 155 [lb_av] W1 ([facility]) Body surface area Derived from formula 1.79 m2 1.79 m2 MEDENT ([facility], ) Body weight 64.865 kg 64.865 kg MEDENT ([facility], ) [place] body weight 160 [lb_av] 160 [lb_av] MEDEN T ([facility]) Body mass index (BMI) [Ratio] 21.1 kg/m2 21.1 k g/m2 MEDENT ([facility]) Body weight 143.00 [lb_av] 143.00 [lb_av] MEDEN T ([facility]) stated Body height 69 [in_i] 69 [in_i] MEDENT ([facility]) 5'9" Diastolic blood pressure 73 mm[Hg] 73 mm[Hg] MEDENT ([facility]) Systolic blood pressure 123 mm[Hg] 123 mm[Hg] M EDENT ([facility]) Diastolic blood pressure 65 mm[Hg] 65 mm[Hg] eCW1 ([facility]) Systolic blood pressure 136 mm[Hg] 136 mm[Hg] e CW1 ([facility]) Body temperature 98.3 [degF] 98.3 [degF] eCW1 ( [facility]) Respiratory rate 18 /min 18 /min eCW1 ([facility]) Heart rate 74 /min 74 /min W1 ([facility]) Body mass index (BMI) [Ratio] 22.89 kg/m2 22.89 kg/m2 [facility] ([facility]) Body height 69 [in_i] 69 [in_i] eCW1 ([facility]) Body weight 155 [lb_av] 155 [lb_av] eCW1 ([facility]) [place] body weight 160 [lb_av] 160 [lb_av] MEDEN T ([facility], ) Body mass index (BMI) [Ratio] 21.1 kg/m2 21.1 k g/m2 [facility] Body weight 143.00 [lb_av] 143.00 [lb_av] MEDEN T ([facility]) Body height 69 [in_i] 69 [in_i] MEDENT ([facility], ) 5'9" Diastolic blood pressure 63 mm[Hg] 63 mm[Hg] [facility] Systolic blood pressure 110 mm[Hg] 110 mm[Hg] [facility] Body surface area Derived from formula 1.79 m2 1.79 m2 [facility] ([facility]) Body weight 64.865 kg 64.865 kg [facility] ([facility]) [place] body weight 160 [lb_av] 160 [lb_av] MEDEN T ([facility]) Body height 69 [in_i] 69 [in_i] [facility] ([facility]) 5'9" Heart rate 85 /min 85 /min [facility] ([facility]) Diastolic blood pressure 61 mm[Hg] 61 mm[Hg] [facility] ([facility]) Systolic blood pressure 126 mm[Hg] 126 mm[Hg] M [facility] ([facility]) Diastolic blood pressure 78 mm[Hg] 78 mm[Hg] eCW1 ([facility]) Systolic blood pressure 188 mm[Hg] 188 mm[Hg] e CW1 ([facility]) Body temperature 97.7 [degF] 97.7 [degF] eCW1 ( [facility]) Respiratory rate 20 /min 20 /min eCW1 ([facility]) Heart rate 90 /min 90 /min eCW1 ([facility]) Body mass index (BMI) [Ratio] 24.22 kg/m2 24.22 kg/m2 W1 ([facility]) Body height 69 [in_i] 69 [in_i] eCW1 ([facility]) Body weight 164 [lb_av] 164 [lb_av] eCW1 ([facility]) Diastolic blood pressure 58 mm[Hg] 58 mm[Hg] eCW1 ([facility]) Systolic blood pressure 107 mm[Hg] 107 mm[Hg] e CW1 ([facility]) Body temperature 98.5 [degF] 98.5 [degF] eCW1 ( [facility]) Respiratory rate 20 /min 20 /min eCW1 ([facility]) Heart rate 82 /min 82 /min eCW1 ([facility]) Body mass index (BMI) [Ratio] 24.22 kg/m2 24.22 kg/m2 eCW1 ([facility]) Body height 69 [in_i] 69 [in_i] eCW1 ([facility]) Body weight 164 [lb_av] 164 [lb_av] eCW1 ([facility]) Diastolic blood pressure mm[Hg] eCW1 ([facility]) Systolic blood pressure 188 mm[Hg] 188 mm[Hg] e CW1 ([facility]) Body temperature 98.2 [degF] 98.2 [degF] eCW1 ( [facility]) Respiratory rate 22 /min 22 /min eCW1 ([facility]) Heart rate 88 /min 88 /min eCW1 ([facility]) Body mass index (BMI) [Ratio] 24.81 kg/m2 24.81 kg/m2 eCW1 ([facility]) Body height 69 [in_i] 69 [in_i] eCW1 ([facility]) Body weight kg eCW1 ([facility]) Body weight 168 [lb_av] 168 [lb_av] eCW1 ([facility]) Body mass index (BMI) [Ratio] 24.8 [...] Derived from formula 1.92 m2 1.92 m2 [facility] ([facility]) Body weight 76.318 kg 76.318 kg [facility] ([facility]) [place] body weight 160 [lb_av] 160 [lb_av] MEDEN T ([facility]) Body mass index (BMI) [Ratio] 24.8 kg/m2 24.8 k g/m2 [facility] ([facility]) Body weight 168.25 [lb_av] 168.25 [lb_av] MEDEN T ([facility]) Body height 69 [in_i] 69 [in_i] [facility] ([facility]) 5'9" Diastolic blood pressure 70 mm[Hg] 70 mm[Hg] [facility] ([facility]) Systolic blood pressure 128 mm[Hg] 128 mm[Hg] M EDENT ([facility]) Diastolic blood pressure 69 mm[Hg] 69 mm[Hg] eCW1 ([facility]) Systolic blood pressure 107 mm[Hg] 107 mm[Hg] e CW1 ([facility]) Body temperature 94.6 [degF] 94.6 [degF] eCW1 ( [facility]) Respiratory rate 18 /min 18 /min eCW1 ([facility]) Heart rate 77 /min 77 /min eCW1 ([facility]) Body mass index (BMI) [Ratio] 24.81 kg/m2 24.81 kg/m2 W1 ([facility]) Body height 69 [in_i] 69 [in_i] eCW1 ([facility]) Body weight kg eCW1 ([facility]) Body weight 168 [lb_av] 168 [lb_av] eCW1 ([facility]) Body mass index (BMI) [Ratio] 24.81 kg/m2 24.81 kg/m2 W1 ([facility]) Body height 69 [in_i] 69 [in_i] eCW1 ([facility]) Body weight kg eCW1 ([facility]) Body weight 168 [lb_av] 168 [lb_av] eCW1 ([facility]) Body weight 78.926 kg 78.926 kg [facility] ([facility]) [place] body weight 160 [lb_av] 160 [lb_av] MEDEN T ([facility]) Body mass index (BMI) [Ratio] 25.7 kg/m2 25.7 k g/m2 [facility] ([facility]) Body weight 174.00 [lb_av] 174.00 [lb_av] MEDEN T ([facility]) Body height 69 [in_i] 69 [in_i] [facility] ([facility]) 5'9" Diastolic blood pressure 70 mm[Hg] 70 mm[Hg] [facility] ([facility]) Systolic blood pressure 124 mm[Hg] 124 mm[Hg] [facility] ([facility]) Body mass index (BMI) [Ratio] 25.5 kg/m2 25.5 k g/m2 [facility] ([facility]) Body weight 173.00 [lb_av] 173.00 [lb_av] MEDEN T ([facility]) Body height 69 [in_i] 69 [in_i] [facility] ([facility]) 5'9" Diastolic blood pressure 82 mm[Hg] 82 mm[Hg] [facility] ([facility]) Systolic blood pressure 140 mm[Hg] 140 mm[Hg] [facility] ([facility]) Body weight 78.473 kg 78.473 kg [facility] ([facility]) Body weight 77.566 kg 77.566 kg [facility] ([facility]) Body mass index (BMI) [Ratio] 25.2 kg/m2 25.2 k g/m2 [facility] ([facility]) Body weight 171.00 [lb_av] 171.00 [lb_av] MEDEN T ([facility]) Body height 69 [in_i] 69 [in_i] MEDENT ([facility]) 5'9" Diastolic blood pressure 70 mm[Hg] 70 mm[Hg] [facility] ([facility]) Systolic blood pressure 120 mm[Hg] 120 mm[Hg] [facility] ([facility]) Body weight 77.112 kg 77.112 kg [facility] ([facility]) Body mass index (BMI) [Ratio] 25.1 kg/m2 25.1 k g/m2 [facility] ([facility]) Body weight 170.00 [lb_av] 170.00 [lb_av] MEDEN T ([facility]) Body height 69 [in_i] 69 [in_i] [facility] 5'9" Diastolic blood pressure 80 mm[Hg] 80 mm[Hg] [facility] ([facility]) Systolic blood pressure 153 mm[Hg] 153 mm[Hg] [facility] ([facility]) Body weight 77.225 kg 77.225 kg [facility] ([facility]) Body mass index (BMI) [Ratio] 25.1 kg/m2 25.1 k g/m2 [facility] ([facility]) Body weight 170.25 [lb_av] 170.25 [lb_av] MEDEN T ([facility]) Body height 69 [in_i] 69 [in_i] [facility] 5'9" Diastolic blood pressure 60 mm[Hg] 60 mm[Hg] [facility] ([facility]) Systolic blood pressure 100 mm[Hg] 100 mm[Hg] [facility] Body weight 77.225 kg 77.225 kg [facility] ([facility]) Body mass index (BMI) [Ratio] 25.1 kg/m2 25.1 k g/m2 [facility] ([facility]) Body weight 170.25 [lb_av] 170.25 [lb_av] MEDEN T ([facility]) Body height 69 [in_i] 69 [in_i] [facility] ([facility]) 5'9" Diastolic blood pressure 73 mm[Hg] 73 mm[Hg] [facility] Systolic blood pressure 128 mm[Hg] 128 mm[Hg] [facility] Diastolic blood pressure 78 mm[Hg] 78 mm[Hg] eCW1 ([facility]) Systolic blood pressure 145 mm[Hg] 145 mm[Hg] e CW1 ([facility]) Body temperature 97.8 [degF] 97.8 [degF] eCW1 ( [facility]) Respiratory rate 17 /min 17 /min eCW1 ([facility]) Heart rate 87 /min 87 /min eCW1 ([facility]) Body mass index (BMI) [Ratio] 24.81 kg/m2 24.81 kg/m2 W1 ([facility]) Body height 69 [in_i] 69 [in_i] eCW1 ([facility]) Body weight 168 [lb_av] 168 [lb_av] eCW1 ([facility]) Body weight 74.844 kg 74.844 kg [facility] ([facility], ) Body mass index (BMI) [Ratio] 24.4 kg/m2 24.4 k g/m2 [facility] ([facility]) Body weight 165.00 [lb_av] 165.00 [lb_av] MEDEN T ([facility], ) Body height 69 [in_i] 69 [in_i] [facility] 5'9" Diastolic blood pressure 80 mm[Hg] 80 mm[Hg] MEDENT ([facility]) Systolic blood pressure 165 mm[Hg] 165 mm[Hg] M EDENT ([facility]) Diastolic blood pressure 68 mm[Hg] 68 mm[Hg] eCW1 ([facility]) Systolic blood pressure 111 mm[Hg] 111 mm[Hg] e CW1 ([facility]) Body temperature 98.0 [degF] 98.0 [degF] eCW1 ( [facility]) Respiratory rate 18 /min 18 /min eCW1 ([facility]) Heart rate 89 /min 89 /min eCW1 ([facility]) Body mass index (BMI) [Ratio] 24.81 kg/m2 24.81 kg/m2 eCW1 ([facility]) Body height 69 [in_us] 69 [in_us] eCW1 ([facility]) Body weight Measured 168 [lb_av] 168 [lb_av] eC W1 ([facility]) Diastolic blood pressure 82 mm[Hg] 82 mm[Hg] eCW1 ([facility]) Systolic blood pressure 132 mm[Hg] 132 mm[Hg] e CW1 ([facility]) Body mass index (BMI) [Ratio] 25.25 kg/m2 25.25 kg/m2 eCW1 ([facility]) Body height 69 [in_us] 69 [in_us] eCW1 ([facility]) Body weight Measured 171 [lb_av] 171 [lb_av] eC W1 ([facility]) Patient Treatment Plan of Care Planned Activity Planned Date Details Description Data Source (s) Misc. Devices - 03/11/2020 12:00:00 AM EST eCW1 ([facility]) Misc. Devices - 03/11/2020 12:00:00 AM EST eCW1 ([facility]) Misc. Devices - 03/11/2020 12:00:00 AM EST eCW1 ([facility]) Misc. Devices - 03/11/2020 12:00:00 AM EST eCW1 ([facility]) Misc. Devices - 03/11/2020 12:00:00 AM EST eCW1 ([facility]) Wheelchair - 02/24/2020 12:00:00 AM EST e CW1 ([facility]) Wheelchair - 02/24/2020 12:00:00 AM EST e CW1 ([facility]) Wheelchair - 02/24/2020 12:00:00 AM EST e CW1 ([facility]) Wheelchair - 02/24/2020 12:00:00 AM EST e CW1 ([facility]) Wheelchair - 02/24/2020 12:00:00 AM EST e CW1 ([facility]) Wheelchair - 02/24/2020 12:00:00 AM EST e CW1 ([facility]) Wheelchair - 02/24/2020 12:00:00 AM EST e CW1 ([facility]) Wheelchair - 02/24/2020 12:00:00 AM EST e CW1 ([facility]) Finasteride 5 MG Oral Tablet [Proscar] 09/05/2019 12:00:00 AM EDT eCW1 ([facility]) Finasteride 5 MG Oral Tablet [Proscar] 09/05/2019 12:00:00 AM EDT eCW1 ([facility]) Finasteride 5 MG Oral Tablet [Proscar] 09/05/2019 12:00:00 AM EDT eCW1 ([facility]) Finasteride 5 MG Oral Tablet [Proscar] 09/05/2019 12:00:00 AM EDT eCW1 ([facility]) Citalopram 40 MG Oral Tablet [Celexa] 04/17/2019 12:00:00 AM EST eCW1 ([facility]) Celexa 40 MG 04/17/2019 12:00:00 AM EST e CW1 ([facility])
[2020-05-07 17:54] LABS: BASO % 0.2 % (0.0-1.0); EOS # 0.1 10^3/uL (0.0-0.5); EOS % 0.6 % (0.0-3.0); HEMATOCRIT 30.1 % (42.0-52.0); HEMOGLOBIN 10.1 g/dl (13.5-17.5); LYMPH # 1.6 10^3/uL (1.5-5.0); LYMPH % 17.2 % (24.0-44.0); MEAN CORPUSCULAR HEMOGLOBIN 29.9 pg (27.0-33.0); MEAN CORPUSCULAR HGB CONC 33.6 g/dl (32.0-36.5); MEAN CORPUSCULAR VOLUME 89.1 fl (80.0-96.0); MONO # 0.9 10^3/uL (0.0-0.8); MONO % 9.1 % (0.0-5.0); NEUTROPHILS # 6.8 10^3/uL (1.5-8.5); NEUTROPHILS % 71.8 % (36.0-66.0); PLATELET COUNT, AUTOMATED 301 10^3/uL (150-450); RED BLOOD COUNT 3.38 10^6/uL (4.30-6.10); WHITE BLOOD COUNT 9.4 10^3/uL (4.0-10.0)
[2020-05-07 18:12] LABS: ALBUMIN 2.8 GM/DL (3.2-5.2); ALT/SGPT 55 U/L (12-78); BILIRUBIN,DIRECT 0.2 MG/DL (0.0-0.2); BILIRUBIN,TOTAL 0.6 MG/DL (0.2-1.0); BLOOD UREA NITROGEN 19 MG/DL (7-18); CARBON DIOXIDE LEVEL 28 MEQ/L (21-32); CHLORIDE LEVEL 103 MEQ/L (98-107); CREATININE FOR GFR 1.12 MG/DL (0.70-1.30); GLOMERULAR FILTRATION RATE > 60.0 (>49); GLUCOSE, FASTING 198 MG/DL (70-100); POTASSIUM SERUM 4.4 MEQ/L (3.5-5.1); SODIUM LEVEL 137 MEQ/L (136-145); TOTAL PROTEIN 6.1 GM/DL (6.4-8.2)
[2020-05-07 18:31] VITALS: BP 171/77
== END 2020-05-07 19:29 | disposition home or self-care (01) ==
LOC: M ED 15:49 → EDBD 15:49 → M ED 19:29
DX: E10.649 Type 1 diabetes mellitus with hypoglycemia without coma (principal); Z87.891 Personal history of nicotine dependence; Z79.4 Long term (current) use of insulin; Z79.82 Long term (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; Z79.899 Other long term (current) drug therapy

== ENCOUNTER 2020-07-01 17:02 | Emergency (ER) | payer MEDICARE, MEDICAID ==
[~2020-07-01] VITALS: Ht 175.3 cm; Wt 74.5 kg
[2020-07-01 18:38] LABS: BLOOD UREA NITROGEN 17 MG/DL (7-18); CALCIUM LEVEL 8.9 MG/DL (8.8-10.2); CARBON DIOXIDE LEVEL 31 MEQ/L (21-32); CHLORIDE LEVEL 107 MEQ/L (98-107); CREATININE FOR GFR 1.19 MG/DL (0.70-1.30); GLOMERULAR FILTRATION RATE > 60.0 (>49); GLUCOSE, FASTING 62 MG/DL (70-100); POTASSIUM SERUM 4.2 MEQ/L (3.5-5.1); SODIUM LEVEL 142 MEQ/L (136-145)
[2020-07-01 19:13] LABS: BASO % 0.5 % (0.0-1.0); EOS # 0.1 10^3/uL (0.0-0.5); EOS % 1.3 % (0.0-3.0); HEMATOCRIT 37.7 % (42.0-52.0); HEMOGLOBIN 12.4 g/dl (13.5-17.5); LYMPH # 1.5 10^3/uL (1.5-5.0); LYMPH % 17.4 % (24.0-44.0); MEAN CORPUSCULAR HEMOGLOBIN 30.8 pg (27.0-33.0); MEAN CORPUSCULAR HGB CONC 32.9 g/dl (32.0-36.5); MEAN CORPUSCULAR VOLUME 93.5 fl (80.0-96.0); MONO # 0.9 10^3/uL (0.0-0.8); MONO % 10.8 % (2.0-8.0); NEUTROPHILS % 69.4 % (36.0-66.0); PLATELET COUNT, AUTOMATED 209 10^3/uL (150-450); RED BLOOD COUNT 4.03 10^6/uL (4.30-6.10); WHITE BLOOD COUNT 8.7 10^3/uL (4.0-10.0)
[2020-07-01 20:30] VITALS: BP 142/63
== END 2020-07-01 21:21 | disposition home or self-care (01) ==
LOC: M ED 17:02
DX: E11.649 Type 2 diabetes mellitus with hypoglycemia without coma (principal); I50.9 Heart failure, unspecified; K21.9 Gastro-esophageal reflux disease without esophagitis; F31.9 Bipolar disorder, unspecified; Z79.82 Long term (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; Z79.899 Other long term (current) drug therapy

== ENCOUNTER 2020-08-14 21:41 | Inpatient (IN) | payer MEDICARE, MEDICAID ==
[~2020-08-14] VITALS: Ht 167.6 cm; Wt 67.3 kg
[2020-08-14] MEDS ORDERED: DEXTROSE 50% 50 ML SYRINGE IV STA (21:55)
[2020-08-14] MEDS ORDERED: ACETAMINOPHEN 325 MG TAB PO ONE (22:20)
[2020-08-14] MEDS ORDERED: METOCLOPRAMIDE INJ 10MG/2ML VIAL (J2765 PER 1) IV ONE (22:30)
[2020-08-14] MEDS ORDERED: METOCLOPRAMIDE INJ 10MG/2ML VIAL (J2765 PER 1) As Ordered ONE (22:32)
[2020-08-14] MEDS ORDERED: D10W 1,000 ML IV SCH (23:15)
[2020-08-14 23:18] LABS: BASO # 0.1 10^3/uL (0.0-0.2); BASO % 0.4 % (0.0-1.0); EOS # 0.1 10^3/uL (0.0-0.5); EOS % 0.4 % (0.0-3.0); HEMATOCRIT 41.4 % (42.0-52.0); HEMOGLOBIN 13.4 g/dl (13.5-17.5); LYMPH # 1.5 10^3/uL (1.5-5.0); LYMPH % 8.1 % (24.0-44.0); MEAN CORPUSCULAR HEMOGLOBIN 31.2 pg (27.0-33.0); MEAN CORPUSCULAR HGB CONC 32.4 g/dl (32.0-36.5); MEAN CORPUSCULAR VOLUME 96.5 fl (80.0-96.0); MONO # 1.7 10^3/uL (0.0-0.8); MONO % 9.2 % (2.0-8.0); NEUTROPHILS # 14.7 10^3/uL (1.5-8.5); NEUTROPHILS % 81.3 % (36.0-66.0); PLATELET COUNT, AUTOMATED 233 10^3/uL (150-450); RED BLOOD COUNT 4.29 10^6/uL (4.30-6.10)
[2020-08-14 23:22] LABS: APPEARANCE, URINE CLEAR (CLEAR); BACTERIA, URINE AUTO NEGATIVE (NEGATIVE); BILIRUBIN, URINE AUTO NEGATIVE (NEGATIVE); BLOOD, URINE BLOOD NEGATIVE (NEGATIVE); COLOR, URINE YELLOW (YELLOW); GLUCOSE, URINE (UA) AUTO NEGATIVE (NEGATIVE); KETONE, URINE AUTO NEGATIVE (NEGATIVE); LEUKOCYTE ESTERASE, URINE AUTO NEGATIVE (NEGATIVE); NITRITE, URINE AUTO NEGATIVE (NEGATIVE); PROTEIN, URINE AUTO NEGATIVE (NEGATIVE); RBC, URINE AUTO 4 /HPF (0-3); SQUAMOUS EPITHELIAL CELL UR AU 0 /HPF (0-6); UROBILINOGEN, URINE AUTO 0.2 mg/dL (0.0-2.0); WBC, URINE AUTO 0 /HPF (0-3)
[2020-08-14 23:36] LABS: INR 0.91; PROTHROMBIN TIME 12.4 SECONDS (12.5-14.3); WHITE BLOOD COUNT 18.1 10^3/uL (4.0-10.0)
[2020-08-14 23:37] LABS: PARTIAL THROMBOPLASTIN TIME 24.7 SECONDS (24.2-38.5)
[2020-08-14 23:41] LABS: HEMOGLOBIN A1c 7.2 %
[2020-08-14 23:47] LABS: ACETONE/KETONE 1.04 MG/DL (<2.81); ALBUMIN 3.7 GM/DL (3.2-5.2); BILIRUBIN,DIRECT 0.2 MG/DL (0.0-0.2); BILIRUBIN,TOTAL 0.8 MG/DL (0.2-1.0); CALCIUM LEVEL 9.6 MG/DL (8.8-10.2); CREATININE FOR GFR 1.43 MG/DL (0.70-1.30); GLOMERULAR FILTRATION RATE 53.5 (>49); MAGNESIUM LEVEL 1.5 MG/DL (1.8-2.4); POTASSIUM SERUM 4.3 MEQ/L (3.5-5.1); TOTAL PROTEIN 7.1 GM/DL (6.4-8.2)
--- NOTE | 2020-08-15 00:08 | REPVR ---
PROCEDURE INFORMATION: Exam: XR Chest Exam date and time: 08/14/20 (11:25pm) Age: 60 years old Clinical indication: Fever TECHNIQUE: Imaging protocol: Portable CXR Views: 1 view COMPARISON: Portable CXR of 05/02/20 FINDINGS: Comparison is made with a portable CXR done on 05/02/20. The patient is slightly rotated to an STEVE position. Stable heart size. Prominent lung markings (unchanged appearance). No consolidation. No pleural effusions. No pneumothorax. IMPRESSION: No acute findings. In general, a similar appearance was noted on 05/02/20. Electronically signed by: Sheba Dinh On 08/15/2020 00:08:16 AM
[2020-08-15] MEDS ORDERED: NS 2,050 ML in IV 1 EA IV ONE (00:10)
[2020-08-15] MEDS ORDERED: cefTRIAXone SOD 2 GM in D5W MINI-BAG PLUS 50 ML IV ONE (00:15)
[2020-08-15] MEDS ORDERED: PRED5TA PO (00:55)
[2020-08-15] MEDS ORDERED: PRED1TABL PO (00:55)
[2020-08-15] MEDS ORDERED: VANCOMYCIN HCL 1,000 MG, VIAL MATE ADAPTER 1 EACH in NS 250 ML IV STA (00:58)
[2020-08-15] MEDS ORDERED: MAG SULF 1GM/100ML (MAG RUN) 1 GM in IV 1 EA IV ONE ×2 (01:00→10:00)
[2020-08-15] MEDS ORDERED: MOM 30ML SUSPENSION UDC PO PRN (01:00)
[2020-08-15] MEDS ORDERED: MAALOX 30 ML SUSP *UDC PO PRN (01:00)
[2020-08-15] MEDS ORDERED: ARIP1TAB6 PO (01:01)
--- NOTE | 2020-08-15 01:08 | HPEPDOC ---
[facility] Medical History & Physical Date of Admission August 15, 2020 Date of Service: August 15, 2020 Primary Care Physician: SONIA JUNG MD Attending Physician: RITU OTERO MD History and Physical TIME OF SERVICE: 1:15am CHIEF COMPLAINT: feeling unwell HISTORY OF PRESENT ILLNESS: This 60 yr old M w DM1 was admitted on Apr for sepsis 2/2 cellulitis of R BKA stump and resultant hypoglycemia and again in May Hypoglycemia - likely 2/2 poor oral intake & viral gastroenteritis. Yesterday he was feeling unwell he denied having f/c/n/v/d abdominal pain, chills, chest pain or vomiting. He had a poor appetite so he turned off his insulin pump; when his family found him he had chills and his initial serum glucose was in the 50s. 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 HOME MEDICATIONS: Please see below. PHYSICAL EXAMINATION: Vital Signs Date Time Temp Pulse Resp B/P (MAP) Pulse Ox O2 Delivery O2 Flow Rate FiO2 08/14/20 21:44 80 18 129/64 98 Room Air 08/14/20 23:15 101.4 GENERAL APPEARANCE: well nourished HEENT: EOMI CARDIOVASCULAR: RRR/NMRG LUNGS: CTAB on RA ABDOMEN: flat MUSCULOSKELETAL: ALFONSO in upper extremities / has BLE BKA INTEGUMENT: slightly flushed / not pale / seborrheic dermatitis affecting the face NEUROLOGICAL: CN 2-12 intact / speech not dysarthric PSYCHIATRIC: A&O x 3 / able to understand and follow all commands LABORATORY DATA: Bedside Glucose (Misc Panel) 56L Immature Granulocyte % (Auto) 0.6, Neutrophils (%) (Auto) 81.3H, Lymphocytes (%) (Auto) 8.1L, Monocytes (%) (Auto) 9.2H, Eosinophils (%) (Auto) 0.4, Basophils (%) (Auto) 0.4, Neutrophils # (Auto) 14.7H, Lymphocytes # (Auto) 1.5, Monocytes # (Auto) 1.7H, Eosinophils # (Auto) 0.1, Basophils # (Auto) 0.1, Nucleated Red Blood Cells % (auto) 0.0, Prothrombin Time 12.4, Prothromb Time International Ratio 0.91, Activated Partial Thromboplast Time 24.7L, Anion Gap 8, Glomerular Filtration Rate 53.5, Estimated Mean Plasma Glucose 160H, Hemoglobin A1c 7.2, Calcium Level 9.6, Magnesium Level 1.5L, Total Bilirubin 0.8, Direct Bilirubin 0.2, Aspartate Amino Transf (AST/SGOT) 41H, Alanine Aminotransferase (ALT/SGPT) 54, Alkaline Phosphatase 107, Total Protein 7.1, Albumin 3.7, Albumin/Globulin Ratio 1.1, Lipase 44L, B-Hydroxybutyrate 1.04 08/14/20 23:00: Urine Color YELLOW, Urine Appearance CLEAR, Urine pH 8.0, Urine Specific Mellen 1.010, Urine Protein NEGATIVE, Urine Glucose (Auto)(UA) NEGATIVE, Urine Ketones (Auto) NEGATIVE, Urine Blood NEGATIVE, Urine Nitrite NEGATIVE, Urine Bilirubin NEGATIVE, Urine Urobilinogen 0.2, Urine Leukocyte Esterase (Auto) NEGATIVE, Urine WBC (Auto) 0, Urine RBC (Auto) 4H, Urine Hyaline Casts (Auto) 0, Urine Bacteria (Auto) NEGATIVE, Urine Squamous Epithelial Cells 0, Urine Sperm (Auto) , Lactic Acid Level 4.8*H Bedside Glucose (Misc Panel) 155H IMAGING: Chest xray IMPRESSION: No acute findings. In general, a similar appearance was noted on 05/02/20. MICROBIOLOGY: Respiratory panel neg ASSESSMENT: is a 60 yr old w Brittle DM1 complicated by neuropathy, retinopathy & nephropathy, Autonomic dysfunction 2/2 longstanding DM, Adrenal insufficiency, PAD, temporal arteritis, Depression, BPH, DLP & Migraines who is admitted for hypoglycemia, SIRS of unclear cause & IBAN. PLAN: 1 Hypoglycemia / Brittle DM1w neuropathy retinopathy and nephropathy Possibly 2/2 infection and poor PO intake He disconnected his insulin pump Plan: admit to PCU / f/u FSBS Q4H / hypoglycemia protocol / switch to D10W with 0.9% / f/u work up for infection / consistent carb diet /f/u A1C / resume Gabapentin 2 SIRS vs Sepsis of unclear cause Possibly bacteremia? T & WBC # are elevated, he has lactic acidosis but the qSOFA score is 0 Plan: c/w IVF / Zosyn and Vanc pending blood cx / trend lactic acid / Acetaminophen PRN for fever / target MAP of at least 65 to 70 / f/u Is and Os with target UOP of at least 0.5 ml/kg/H / f/u FSBS w target serum glucose 140- 180 while acutely ill 3 IBAN on CKD 2 Plan: monitor UOP / IVF / f/u renal panel, CK, Ulytes for FENa or FEUrea / renal US / hold nephrotoxic drugs 4 Lactic acidosis Possibly 2/2 infection or dehydration Plan: IVF /trend lactate 5 Hypomagnesmia Plan: replete Mg 6 Mild Transaminitis Hep B/C neg in 2018 Plan: f/u liver US 7 Temporal arteritis Plan: Prednisone 8 PAD Plan: Aspirin, Atorvastatin, Citalopram 9 Depression Plan: Citalopram 11 BPH w LUTs Plan: Finasteride, Tamsulosin 12 DLP Plan: Atorvastatin DVT px w lovenox Dispo: home after at least 2 midnights stay Home Medications Scheduled Aripiprazole (Aripiprazole) 5 Mg Tablet, 5 MG PO DAILY Aspirin (Aspirin EC) 81 Mg Tablet.dr, 81 MG PO DAILY Atorvastatin Calcium (Atorvastatin Calcium) 40 Mg Tablet, 40 MG PO DAILY Bimatoprost (Lumigan) 0.01% 2.5ML Drops, 1 DROP OS QHS Brimonidine Tartrate (Alphagan P) 0.1% 5ML Drops, 1 DROP OS BID Citalopram Hydrobromide (Citalopram HBr) 40 Mg Tablet, 40 MG PO DAILY Clopidogrel Bisulfate (Plavix) 75 Mg Tablet, 75 MG PO DAILY Docusate Sodium (Dok) 100 Mg Tablet, 100 MG PO BID Ferrous Sulfate (Ferrous Sulfate) 325 Mg Tab, 325 MG PO QWEEK SUNDAY Finasteride (Finasteride) 5 Mg Tablet, 5 MG PO DAILY Gabapentin (Gabapentin) 300 Mg Capsule, 300 MG PO BID Insulin Human Lispro (Novolog) 100 Unit/1 Ml Vial, 1 DOSE SC ASDIRECTED UP TO 100 UNITS DAILY CONTINUOUS THROUGH INSULIN PUMP Multivitamins (Thera M Plus Tablet) 1 Each Tablet, 1 TAB PO DAILY Pantoprazole Sodium (Pantoprazole Sodium) 40 Mg Tablet.dr, 40 MG PO BID Prednisone (Prednisone) 1 Mg Tablet, 3 MG PO DAILY IN ADDITION TO 5MG TAB FOR A TOTAL OF 8MG PER DAY Prednisone (Prednisone) 5 Mg Tablet, 5 MG PO DAILY IN ADDITION TO 3MG TO EQUAL 8MG DAILY Psyllium Husk (Fiber) 0.52 Gm Capsule, 0.52 GM PO DAILY Pyridostigmine [place] (Pyridostigmine [place]) 60 Mg Tablet, 60 MG PO DAILY Tamsulosin HCl (Flomax) 0.4 Mg Capsule, 0.4 MG PO QHS Scheduled PRN Glucagon,Human Recombinant (Glucagon Emergency Kit) 1 Mg Vial, 1 MG IM ASDIRECTED PRN for LOW BLOOD SUGAR Tramadol HCl (Tramadol HCl) 50 Mg Tablet, 50 MG PO Q6H PRN for MODERATE PAIN (PS 5-7) Allergies Coded Allergies: No Known Allergies (Unverified , 03/01/20) A-FIB/CHADSVASC A-FIB History Current/History of A-Fib/PAF?: No Current PO Anticoag Therapy: No RITU OTERO MD August 15, 2020 01:08
[2020-08-15] MEDS ORDERED: VIAL MATE ADAPTER XX ONE ×2 (02:46→02:48)
[2020-08-15] MEDS: ACETAMINOPHEN TAB 650MG DOSE (2X325MG) PO PRN ×2 (03:35→17:25)
[2020-08-15 04:00] VITALS: BP_SYST 127; BP_SYST 132; BP_DIAS 59; BP_DIAS 74
[2020-08-15] MEDS ORDERED: D10W/0.45% SODIUM CHLORIDE 1,000 ML IV SCH (04:00)
[2020-08-15 04:26] LABS: POTASSIUM RANDOM URINE 86.1 MEQ/L
[2020-08-15 04:45] LABS: MAGNESIUM LEVEL 1.4 MG/DL (1.8-2.4)
[2020-08-15] MEDS ORDERED: MAGNESIUM OXIDE 400MG TAB (MAG-OX) PO ONE (05:35)
[2020-08-15] MEDS ORDERED: PIPERACILLIN/TAZOBACTAM SOD 4.5 GM in D5W MINI-BAG PLUS 50 ML IV SCH (06:00)
--- NOTE | 2020-08-15 07:58 | ECGEPIP ---
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
[2020-08-15 08:00] VITALS: BP 108/51
[2020-08-15 09:01] LABS: BASO % 0.5 % (0.0-1.0); EOS # 0.1 10^3/uL (0.0-0.5); EOS % 1.7 % (0.0-3.0); HEMATOCRIT 33.5 % (42.0-52.0); LYMPH # 0.8 10^3/uL (1.5-5.0); LYMPH % 10.3 % (24.0-44.0); MEAN CORPUSCULAR HEMOGLOBIN 30.8 pg (27.0-33.0); MEAN CORPUSCULAR HGB CONC 32.5 g/dl (32.0-36.5); MEAN CORPUSCULAR VOLUME 94.6 fl (80.0-96.0); MONO # 0.7 10^3/uL (0.0-0.8); MONO % 9.5 % (2.0-8.0); NEUTROPHILS # 5.8 10^3/uL (1.5-8.5); NEUTROPHILS % 77.3 % (36.0-66.0); PLATELET COUNT, AUTOMATED 152 10^3/uL (150-450); RED BLOOD COUNT 3.54 10^6/uL (4.30-6.10); WHITE BLOOD COUNT 7.5 10^3/uL (4.0-10.0)
[2020-08-15 09:02] LABS: HEMOGLOBIN 10.9 g/dl (13.5-17.5)
[2020-08-15 09:24] LABS: ERYTHROCYTE SEDIMENTATION RATE 16 mm/hr (0-20)
[2020-08-15] MEDS: ENOXAPARIN 40MG/0.4ML SYRINGE (J1650 PER 10MG) SC SCH (09:52)
[2020-08-15 09:59] LABS: ALBUMIN 2.7 GM/DL (3.2-5.2); BILIRUBIN,TOTAL 0.8 MG/DL (0.2-1.0); C REACTIVE PROTEIN QUANTITATIV 5.03 MG/DL (0.00-0.30); CALCIUM LEVEL 7.7 MG/DL (8.8-10.2); CREATININE FOR GFR 1.4 MG/DL (0.70-1.30); GLOMERULAR FILTRATION RATE 54.8 (>49); POTASSIUM SERUM 5.2 MEQ/L (3.5-5.1); TOTAL PROTEIN 5.6 GM/DL (6.4-8.2)
--- NOTE | 2020-08-15 10:28 | REP ---
INDICATION: IBAN and transaminitis in pt with sepsis. COMPARISON: 08/04/2019. TECHNIQUE: Real-time sonographic evaluation of right upper quadrant performed. FINDINGS: The gallbladder demonstrates no evidence of intraluminal sludge or calculi, wall thickening or pericholecystic fluid. There is no intrahepatic or extrahepatic biliary dilatation, common bile duct measures 3 mm in maximum diameter. The liver demonstrates homogeneous echotexture with no gross mass. The pancreas is not visualized due to overlying bowel gas. The right kidney demonstrates no hydronephrosis, with a normal size of 10.2 cm in length. No free fluid is seen. IMPRESSION: Negative right upper quadrant ultrasound. <Electronically signed by Kevin Lee > 08/15/20 [id number]
[2020-08-15] MEDS: CEFTAROLINE FOSAMIL 600 MG in D5W MINI-BAG PLUS 50 ML IV SCH ×2 (10:36→21:56)
[2020-08-15] MEDS ORDERED: HumaLOG INSULIN (NovoLOG) PER UNIT SC STA (10:52)
[2020-08-15] MEDS ORDERED: GLUCOSE 4GM CHEW TABLET PO PRN (10:55)
[2020-08-15] MEDS ORDERED: NS 1,000 ML IV ONE (10:55)
[2020-08-15] MEDS ORDERED: GLUCAGON INJ 1MG VIAL SC PRN (10:55)
[2020-08-15] MEDS ORDERED: DEXTROSE 50% 50 ML SYRINGE IV PRN (10:55)
[2020-08-15] MEDS ORDERED: LEVEMIR (INSULIN DETEMIR) 1 UNITS/0.01ML SC ONE (11:00)
[2020-08-15 12:00] VITALS: BP 125/54
[2020-08-15] MEDS: HumaLOG INSULIN (NovoLOG) PER UNIT SC SCH ×2 (13:29→17:30)
[2020-08-15] MEDS: LACTOBACILLUS ACIDOPHILUS CAP (BACID) PO SCH ×3 (13:29→20:49)
[2020-08-15 13:45] VITALS: BP 155/74
[2020-08-15] MEDS ORDERED: VANCOMYCIN HCL 1,000 MG, VIAL MATE ADAPTER 1 EACH in NS 250 ML IV SCH (14:00)
[2020-08-15] MEDS: D5W/0.45% SODIUM CHLORIDE 1,000 ML IV SCH ×2 (15:16→23:15)
--- NOTE | 2020-08-15 15:48 | IPN ---
PROGRESS NOTE DATE: 08/15/2020 SUBJECTIVE: Patient had a fever, 101.4 on admission, white count of 18,000, given vancomycin and Zosyn overnight. Still had a low grade temperature, 100.4, this morning at 3:30. Patient denies any cough, shortness of breath, abdominal pain, nausea or vomiting. Patient's bilateral [id number] amputations appear clean without any erythema or discharge. He has a well-healed scab on the left lower extremity without any purulence or open drainage. Urinalysis (UA) was negative. Blood culture sent. No growth so far. Respiratory panel was negative. Glucose overnight was 56. Insulin pump has been discontinued after receiving D10. Patient's glucose is up to 315. PHYSICAL EXAMINATION: VITAL SIGNS: Maximum temperature (T-max) 101.4, current temperature 99, pulse 75, respiratory rate 18, blood pressure 108/51, 100% on room air. GENERAL: Awake, alert, oriented to person, place and time, no distress. HEENT: No jugular venous distention (JVD) or thyromegaly. LUNGS: Clear to auscultation. No wheezing or rales. HEART: S1, S2. Sinus rhythm. No murmurs, rubs or gallops. ABDOMEN: Soft, nontender, nondistended. Positive bowel sounds. EXTREMITIES: Bilateral [id number] amputation, well healed scarring bilaterally. There is a well-healed scab on the left [id number]-[id number] amputation stump. SKIN: Some erythematous scaly lesions on his face, most likely some seborrheic dermatitis. ASSESSMENT: Active issues are: 1. Leukocytosis with lactic acidosis with unknown etiology/fever of unknown etiology. 2. Hypoglycemia with brittle diabetes, neuropathy, retinopathy and nephropathy. 3. Lactic acidosis, resolved with intravenous (IV) fluids and IV antibiotics. 4. Hypomagnesemia, resolved. 5. Mild transaminitis. 6. Acute kidney injury. 7. Hemodilutional anemia. PLAN: Patient has no source of infection. Bilateral lower extremity stumps are clean with no signs of erythema, drainage or tenderness. Patient had been given vancomycin and Zosyn, remains with low grade temperatures of 100.4. Blood culture is pending. Urine is pending. Methicillin-resistant Staphylococcus aureus (MRSA) screen is negative, therefore, vancomycin and Zosyn will be discontinued. Patient will be placed on ceftaroline for possible gram-positive and gram-negative coverage at this time. Despite the sugars being stable, source of infection is unclear. Patient will be kept for one more day until urine culture and blood cultures have returned. He is medically stable for transfer to medical/surgical floor. Continue with empiric antibiotics, IV fluids for now until patient's cultures have returned.
[2020-08-15] MEDS ORDERED: PROMETHAZINE INJ 25 MG/ML VIAL (J2550) IV PRN (18:45)
[2020-08-15] MEDS ORDERED: PROMETHAZINE INJ 25 MG/ML VIAL (J2550) IV ONE (19:00)
[2020-08-15] MEDS ORDERED: LEVEMIR (INSULIN DETEMIR) 1 UNITS/0.01ML SC SCH (21:00)
[2020-08-15] MEDS ORDERED: HumaLOG INSULIN (NovoLOG) PER UNIT SC SCH (21:00)
[2020-08-15 22:00] VITALS: BP 122/90
[2020-08-16 02:00] VITALS: BP 128/77
[2020-08-16 06:00] VITALS: BP 130/76
[2020-08-16 07:01] LABS: HEMATOCRIT 36.7 % (42.0-52.0); MEAN CORPUSCULAR HEMOGLOBIN 30.9 pg (27.0-33.0); MEAN CORPUSCULAR HGB CONC 32.7 g/dl (32.0-36.5); MEAN CORPUSCULAR VOLUME 94.6 fl (80.0-96.0); PLATELET COUNT, AUTOMATED 141 10^3/uL (150-450); RED BLOOD COUNT 3.88 10^6/uL (4.30-6.10); WHITE BLOOD COUNT 6.1 10^3/uL (4.0-10.0)
[2020-08-16 07:20] LABS: ALBUMIN 2.7 GM/DL (3.2-5.2); ALT/SGPT 37 U/L (12-78); BILIRUBIN,TOTAL 0.5 MG/DL (0.2-1.0); BLOOD UREA NITROGEN 11 MG/DL (7-18); C REACTIVE PROTEIN QUANTITATIV 8.88 MG/DL (0.00-0.30); CALCIUM LEVEL 8.2 MG/DL (8.8-10.2); CARBON DIOXIDE LEVEL 25 MEQ/L (21-32); CHLORIDE LEVEL 105 MEQ/L (98-107); GLOMERULAR FILTRATION RATE > 60.0 (>49); GLUCOSE, FASTING 258 MG/DL (70-100); MAGNESIUM LEVEL 2.1 MG/DL (1.8-2.4); POTASSIUM SERUM 4.6 MEQ/L (3.5-5.1); SODIUM LEVEL 134 MEQ/L (136-145); TOTAL PROTEIN 6.2 GM/DL (6.4-8.2)
[2020-08-16 07:30] LABS: ERYTHROCYTE SEDIMENTATION RATE 2 mm/hr (0-20)
[2020-08-16] MEDS ORDERED: BACTRIM 160MG/800MG DS TAB PO SCH (09:00)
[2020-08-16] MEDS: HumaLOG INSULIN (NovoLOG) PER UNIT SC SCH ×2 (09:14→12:13)
[2020-08-16] MEDS: LACTOBACILLUS ACIDOPHILUS CAP (BACID) PO SCH ×2 (09:14→12:13)
[2020-08-16] MEDS: ENOXAPARIN 40MG/0.4ML SYRINGE (J1650 PER 10MG) SC SCH (09:14)
[2020-08-16 10:00] VITALS: BP 153/68
--- NOTE | 2020-08-16 12:26 | IPN ---
PROGRESS NOTE DATE: 08/16/2020 SUBJECTIVE: The patient is seen and examined at the bedside. Chart has been reviewed. He denies any nausea, vomiting or diarrhea, dysuria, urgency or frequency, cough, fever or chills, no shortness of breath, no bilateral stump redness, pain or tenderness. No other issues per nursing. Patient had a T-max of 101.4 on hospital admission, urine chest x-ray and blood cultures are all negative. The patient has no cellulitic changes. He was on Vancomycin and intravenous Zosyn empirically initially with white count decreasing from 18,000 to normal 7.5 within one day. Sed rate is normal. C-reactive protein has increased from 5.03 to 8.88. OBJECTIVE: VITAL SIGNS: Temperature is 98.5, pulse is 62, respiratory rate is 18, blood pressure is 130/76, 95% on room air. GENERAL APPEARANCE: Awake, alert and oriented, in no distress. No pallor, icterus or jaundice. HEENT: Dry mucous membranes. NECK: No JVD. No cervical lymphadenopathy, thyromegaly or stridor. LUNGS: Clear to auscultation. No wheezing, rales or rhonchi. HEART: S1 and S2, sinus rhythm. No murmurs, rubs or gallops. ABDOMEN: Soft, nontender and nondistended. Positive bowel sounds x4 quadrants. No hepatosplenomegaly. No CVA tenderness. EXTREMITIES: Patient's stump is well-healed with scabs on the left. Right has no open lesions. There is no edema on his bilateral BKAs. LABORATORY DATA: CBC and metabolic panel have been reviewed. Microbiology: Respiratory panel negative and blood cultures are negative. Chest x-ray is negative. Ultrasound of the abdomen is negative. ASSESSMENT AND PLAN: This is a 60-year-old male with a history of diabetes with an insulin pump who presents to the Emergency Room with hypoglycemia, white count is 18,000, fever of 101.5, with no source of fever, was empirically treated with Vancomycin and Zosyn which was discontinued since culture results were negative, empirically placed on Ceftaroline, IV site was pulled by the patient, currently just on Bactrim. Patient still has no source of acute infection and no new complaints. C-reactive protein is increasing but with normal white count and now remains afebrile. Current issues are as follows: 1. Fever of unknown origin. Patient was initially given Vancomycin and Zosyn, day #1, day #2 Ceftaroline, day #3 today Bactrim, no source of infection. Chest x-ray and blood in urine are all negative. Fever 101.5 has no source, now afebrile with normal white count but C-reactive protein is increasing. 2. Acute kidney injury resolved with IV fluids. 3. Hyperkalemia, resolved with no intervention. 4. Hyponatremia due to dehydration and poor intake, improving. 5. Hypoglycemia, improved with D10 initially on admission, resume back on Levemir insulin and sliding scale with coverage, currently with glucose of 122 to 170. 6. Disposition: Infectious Disease specialist has been consulted. Will await recommendations from Infectious Disease if okay to be discharged home, will discontinue all antibiotics.
[2020-08-16 14:00] VITALS: BP 117/55
--- NOTE | 2020-08-16 21:37 | DSES ---
DISCHARGE SUMMARY DATE OF ADMISSION: 08/15/2020 DATE OF DISCHARGE (AGAINST MEDICAL ADVICE): 08/16/2020 PRIMARY DISCHARGE DIAGNOSES: 1. Fever of unknown origin, 101.5 temperature, white count 18,000. 2. Bilateral below the knee amputations with no signs of cellulitis. 3. Hyperkalemia. 4. Mild hyponatremia. 5. Hypoglycemia, glucose of 56 on arrival. 6. Acute kidney injury. DISCHARGE MEDICATIONS: Patient was discharged against medical advice. Patient may resume his home medications with holding parameters for glucose less than 100. 1. Aripiprazole 5 mg daily. 2. Aspirin 81 mg daily. 3. Atorvastatin 40 mg daily. 4. Alphagan eye drops OS b.i.d. 5. Plavix 75 daily. 6. Ferrous Sulfate 325 weekly. 7. Finasteride 5 mg daily. 8. Gabapentin 300 b.i.d. 9. Glucagon . 10.Insulin sliding scale. 11.Multivitamin one tablet daily. 12.Protonix 40 mg b.i.d. 13.Prednisone 3 mg daily, 5 mg daily. 14. 60 mg daily. 15.Tamsulosin 0.4 q.h.s. 16.Tramadol 50 mg every 6 hours as needed. 17.Lumigan eye drop OS q.h.s. 18.Citalopram 40 daily. 19.Colace 100 b.i.d. 20.Psyllium Fiber daily. HOSPITAL COURSE: This is a 60-year-old male with bilateral below the knee amputation, admitted on 08/15/2020 with complaints of not feeling well, was found to be hypoglycemic with glucose of 56 without fevers at home, chills, nausea, vomiting, diarrhea, abdominal pain. He has had poor appetite. In the ER, he was found to have leukocytosis with fever of 101.4, white count of 18.1, acute kidney injury with creatinine of 1.43. Patient was given intravenous Vancomycin and Zosyn empirically. Urinalysis was obtained. Urine culture and blood culture were negative. Chest x-ray was negative. Patient had no signs of cellulitis, induration, redness, tenderness or swelling of bilateral below the knee amputations. Patient's white count improved to 7.5 and 6.1. His Vanco and Zosyn were discontinued. He was placed on Ceftaroline. Then the patient removed his I.V. line and demanded to go home. Patient was then placed on Bactrim. Infectious disease specialist was consulted, but is not available. Patient signed out against medical advice and did not want to take any medications after hospital discharge. He was given intravenous fluids with resultant improvement in acute kidney injury from 1.43 to 1.0 on the day of leaving against medical advice. He was told that his C-reactive protein was increasing from 5 to 8.88. He had low grade temperature of 100.4 after Vanco and Zosyn were discontinued. He did receive one dose of Ceftaroline and received one dose of Bactrim this morning. Culture results were negative. Respiratory panel was negative. Urine and blood were negative. Chest x-ray was negative. He had a negative right upper quadrant ultrasound. PHYSICAL EXAMINATION ON DISCHARGE: VITAL SIGNS: Temperature 98.2, pulse 54, respiratory rate 18, blood pressure 117/55, 98% on room air. GENERAL; Patient appears disheveled. No respiratory distress, JVD or thyromegaly. Moist mucous membranes. LUNGS: Clear to auscultation. No wheezing, rales or rhonchi. HEART: S1, S2, sinus rhythm. ABDOMEN: Soft, nontender, non-distended. Positive bowel sounds. EXTREMITIES: Bilateral BKA. No signs of erythema, induration, redness. He has a well healed scar on the left stump. No necrosis. LABORATORY DATA ON DISCHARGE: White count 6.1, hemoglobin 12, hematocrit 36, platelet count 141,000. Sodium 134, potassium 4.6, chloride 105, bicarb 25, BUN 11, creatinine 1, glucose 258, calcium 8.2. Magnesium 2.1. T-bilirubin 0.5. AST 40, ALT 37. C-reactive protein 8.88. Total protein 6.2. Albumin 2.7. Urine culture from 08/14/2020 no growth. Respiratory panel negative for Coronavirus. Blood culture from 08/14/2020 no growth after 24 hours. IMAGING STUDIES: 1. Chest x-ray from 08/14/2020; no acute cardiopulmonary process, similar appearance as chest x-ray compared to 05/02/2020. 2. Ultrasound of right upper quadrant; negative right upper quadrant ultrasound. TIME SPENT ON DISCHARGE: 30 minutes.
== END 2020-08-16 18:00 | disposition left against medical advice (07) | DRG 638 ==
LOC: M ED 21:41 → M ED INP 08-15 00:58 → ENRESERV 08-15 01:48 → M PCU 08-15 03:40 → M MS5PR 08-15 13:34
PROVIDERS: ADMIT Internal Medicine; ATTEND General Practice
DX: E10.649 Type 1 diabetes mellitus with hypoglycemia without coma (principal); E87.2 Acidosis; E87.1 Hypo-osmolality and hyponatremia; E10.40 Type 1 diabetes mellitus with diabetic neuropathy, unspecified; E10.319 Type 1 diabetes mellitus with unspecified diabetic retinopathy without macular edema; E10.21 Type 1 diabetes mellitus with diabetic nephropathy; E10.51 Type 1 diabetes mellitus with diabetic peripheral angiopathy without gangrene; M31.6 Other giant cell arteritis; N18.2 Chronic kidney disease, stage 2 (mild); E83.42 Hypomagnesemia; R50.9 Fever, unspecified; Z89.511 Acquired absence of right leg below knee; Z89.512 Acquired absence of left leg below knee; E87.5 Hyperkalemia; N17.9 Acute kidney failure, unspecified; Z79.899 Other long term (current) drug therapy; Z79.82 Long term (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; Z79.4 Long term (current) use of insulin; F32.9 Major depressive disorder, single episode, unspecified

== ENCOUNTER 2020-10-28 16:23 | Emergency (ER) | payer MEDICARE, MEDICAID ==
[~2020-10-28] VITALS: Ht 127 cm; Wt 74.5 kg
[~2020-10-28 16:23] MED LIST changes: +ARIP1TAB6 PO; +OMEP40CA4 PO; -OMEP40CA97 PO; -RIZA5TAB PO; +RIZA5TAB2 PO
[2020-10-28 17:11] LABS: BASO # 0.1 10^3/uL (0.0-0.2); BASO % 0.7 % (0.0-1.0); EOS # 0.1 10^3/uL (0.0-0.5); EOS % 1.1 % (0.0-3.0); HEMATOCRIT 33.3 % (42.0-52.0); LYMPH # 1.7 10^3/uL (1.5-5.0); LYMPH % 18.7 % (24.0-44.0); MEAN CORPUSCULAR HEMOGLOBIN 31.2 pg (27.0-33.0); MEAN CORPUSCULAR VOLUME 94.3 fl (80.0-96.0); MONO % 10.7 % (2.0-8.0); NEUTROPHILS # 6.2 10^3/uL (1.5-8.5); PLATELET COUNT, AUTOMATED 188 10^3/uL (150-450); RED BLOOD COUNT 3.53 10^6/uL (4.30-6.10); WHITE BLOOD COUNT 9.1 10^3/uL (4.0-10.0)
--- NOTE | 2020-10-28 17:29 | REP ---
INDICATION: evaluate distal part of amputation. Right proximal tibial CT study. COMPARISON: None. TECHNIQUE: Helical scanning is acquired and 3 mm axial images are re-formatted. Coronal and sagittal MPR images are generated. FINDINGS: Patient is status post bilateral BKA amputation. There is vascular calcification in the remaining calf soft tissues. There is soft tissue gas in the soft tissues of the distal stump just posterior to the posterior cortex of the amputated distal tibia. These gas bubbles are surrounded by relatively low-density which may represent fluid. Approximately 2.5 cm in greatest diameter. There is some periosteal reaction in the distal and of the tibia and the distal end of the fibula. There is soft tissue induration about the distal stump soft tissues. IMPRESSION: Periosteal reaction involving the distal amputated stump of the fibula and tibia. There is soft tissue gas in a possible fluid collection in the soft tissues at the distal stump just posterior to the tibia. Extensive vascular calcification is noted. The significance of these findings depends some degree on the date of the surgical amputation. Stump osteomyelitis and abscess cannot be excluded. <Electronically signed by Dex Pichardo > 10/28/20 [id number]
[2020-10-28 17:42] LABS: CALCIUM LEVEL 8.6 MG/DL (8.8-10.2); CREATININE FOR GFR 1.46 MG/DL (0.70-1.30); GLOMERULAR FILTRATION RATE 52.3 (>49); POTASSIUM SERUM 4.4 MEQ/L (3.5-5.1)
[2020-10-28] MEDS ORDERED: AUGM875T28 PO (18:35)
[2020-10-28 18:45] VITALS: BP 138/76
== END 2020-10-28 19:19 | disposition home or self-care (01) ==
LOC: M ED 16:23 → EDBD 16:23 → M ED 19:19
DX: T87.43 Infection of amputation stump, right lower extremity (principal); E11.9 Type 2 diabetes mellitus without complications; F17.200 Nicotine dependence, unspecified, uncomplicated; Z79.82 Long term (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; Z79.52 Long term (current) use of systemic steroids; Z79.899 Other long term (current) drug therapy; Z89.511 Acquired absence of right leg below knee

== ENCOUNTER 2020-12-05 20:21 | Inpatient (IN) | payer MEDICARE, MEDICAID ==
[~2020-12-05] VITALS: Ht 175.3 cm; Wt 74.1 kg
[~2020-12-05 20:21] MED LIST changes: +DOK1CAP4 PO; -DOK1CAP7 PO
[2020-12-05] MEDS ORDERED: NS 1,000 ML IV ONE (21:05)
--- NOTE | 2020-12-05 21:55 | REPVR ---
PROCEDURE INFORMATION: Exam: XR Chest Exam date and time: 12/05/2020 9:19 PM Age: 60 years old Clinical indication: Other: Dka TECHNIQUE: Imaging protocol: XR of the chest. Views: 1 view. COMPARISON: CR PORTABLE CHEST X-RAY 08/14/2020 11:19 PM FINDINGS: Lungs: The lungs are unchanged. There are no interval infiltrates. Pleural spaces: Unremarkable. No pleural effusion. No pneumothorax. Heart/Mediastinum: The heart and mediastinum are unchanged. Bones/joints: Degenerative narrowing of the right shoulder joint. IMPRESSION: Stable chest since 08/14/2020. No acute interval process is identified. Electronically signed by: Shravan Mitchell On 12/05/2020 21:55:03 PM
[2020-12-05 22:32] LABS: ACETONE/KETONE 1.18 MG/DL (<2.81); ALBUMIN 3.3 GM/DL (3.2-5.2); BILIRUBIN,DIRECT 0.3 MG/DL (0.0-0.2); BILIRUBIN,TOTAL 1.3 MG/DL (0.2-1.0); CALCIUM LEVEL 8.8 MG/DL (8.8-10.2); CK-MB VALUE MASS 2.7 NG/ML (<3.6); CREATININE FOR GFR 1.44 MG/DL (0.70-1.30); GLOMERULAR FILTRATION RATE 53.1 (>49); MB/CK RELATIVE INDEX 2.57 (< OR =4); POTASSIUM SERUM 3.7 MEQ/L (3.5-5.1); TOTAL PROTEIN 6.8 GM/DL (6.4-8.2); TROPONIN I 0.42 NG/ML (< 0.10)
[2020-12-05 22:57] LABS: BASO % 0.3 % (0.0-1.0); EOS # 0.1 10^3/uL (0.0-0.5); EOS % 0.4 % (0.0-3.0); HEMATOCRIT 41.3 % (42.0-52.0); HEMOGLOBIN 14.4 g/dl (13.5-17.5); LYMPH # 1.8 10^3/uL (1.5-5.0); LYMPH % 15.3 % (24.0-44.0); MEAN CORPUSCULAR HEMOGLOBIN 31.1 pg (27.0-33.0); MEAN CORPUSCULAR HGB CONC 34.9 g/dl (32.0-36.5); MEAN CORPUSCULAR VOLUME 89.2 fl (80.0-96.0); MONO # 1.4 10^3/uL (0.0-0.8); MONO % 11.9 % (2.0-8.0); NEUTROPHILS # 8.4 10^3/uL (1.5-8.5); NEUTROPHILS % 71.6 % (36.0-66.0); PLATELET COUNT, AUTOMATED 181 10^3/uL (150-450); RED BLOOD COUNT 4.63 10^6/uL (4.30-6.10); WHITE BLOOD COUNT 11.7 10^3/uL (4.0-10.0)
[2020-12-05 23:28] LABS: HEMOGLOBIN A1c 7.8 %
[2020-12-06 00:49] LABS: VENOUS BASE EXCESS 6.2 (-2.0-2.0); VENOUS HCO3 29.4 MEQ/L (23.0-27.0); VENOUS O2 SATURATION 99.3 % (60.0-80.0); VENOUS PARTIAL PRESSURE CO2 37.3 mmHg (38.0-50.0); VENOUS PARTIAL PRESSURE O2 175.8 mmHg (30.0-50.0); VENOUS PH 7.514 UNITS (7.330-7.430); VENOUS STANDARD HCO3 30.1 MEQ/L; VENOUS TOTAL CO2 30.5 MEQ/L (24.0-28.0)
[2020-12-06 01:20] LABS: CK-MB VALUE MASS 2.6 NG/ML (<3.6); MB/CK RELATIVE INDEX 2.52 (< OR =4); TROPONIN I 0.47 NG/ML (< 0.10)
[2020-12-06] MEDS ORDERED: NS 1,000 ML IV ONE (01:30)
[2020-12-06 01:48] LABS: RSV AMPLIFICATION NEGATIVE (NEGATIVE)
--- NOTE | 2020-12-06 02:37 | REPVR ---
PROCEDURE INFORMATION: Exam: CT Abdomen And Pelvis Without Contrast Exam date and time: 12/06/2020 1:51 AM Age: 60 years old Clinical indication: Nausea and vomiting; Additional info: Nausea/vomiting TECHNIQUE: Imaging protocol: Computed tomography of the abdomen and pelvis without contrast. Radiation optimization: All CT scans at this facility use at least one of these dose optimization techniques: automated exposure control; mA and/or kV adjustment per patient size (includes targeted exams where dose is matched to clinical indication); or iterative reconstruction. COMPARISON: CT ABD/PEL W/IV CONTRAST ONLY 12/09/2018 9:55 PM FINDINGS: Lungs: Bibasilar bullous change with interstitial coarsening and minimal fibro-atelectatic change. Mediastinal space: Minimal hiatal hernia. Liver: Normal. No mass. Gallbladder and bile ducts: The gallbladder is somewhat contracted with no stones. Pancreas: Mild pancreatic atrophy for age. Spleen: Normal. No splenomegaly. Adrenal glands: Normal. No mass. Kidneys and ureters: Nonobstructing bilateral renal calculi. Stomach and bowel: No small bowel dilatation. Appendix: A normal appendix is seen. Intraperitoneal space: Unremarkable. No free air. No significant fluid collection. Vasculature: There is mild calcification of the abdominal aorta with extension into the iliac arteries. Lymph nodes: Unremarkable. No enlarged lymph nodes. Urinary bladder: Unremarkable as visualized. Reproductive: Calcification of the vas deferens. Bones/joints: Degenerative changes of the lumbar spine with mild superior endplate depression of L3 which appears to be chronic. Soft tissues: Unremarkable. IMPRESSION: 1. There is calcification of the vas deferens consistent with diabetes. 2. Mild pancreatic atrophy for age. 3. Minimal hiatal hernia. 4. Nonobstructing bilateral renal calculi. 5. Bibasilar bullous change with interstitial coarsening and minimal fibro-atelectatic change 6. Otherwise negative CT abdomen/pelvis with little change from 12/09/2018. No bowel obstruction. Electronically signed by: Shravan Mitchell On 12/06/2020 02:37:09 AM
[2020-12-06] MEDS ORDERED: CEFTAROLINE FOSAMIL 600 MG in D5W MINI-BAG PLUS 50 ML IV ONE (03:30)
[2020-12-06] MEDS ORDERED: ONDANSETRON 4MG/2ML VIAL IV PRN (03:50)
--- NOTE | 2020-12-06 04:07 | HPEPDOC ---
General Date of Admission December 06, 2020 Date of Service: Dec 06, 2020 Chief Complaint The patient is a 60-year-old male admitted with a reason for visit of N/V. Source: Patient History of Present Illness Mr. Girard is a 60-year-old male with diabetes mellitus type 1 on insulin pump and adrenal insufficiency who is here for intractable nausea and vomiting. He tells me that this started last . He does not remember much. He tells me that the steroids have destroyed his short-term memory. Denies any new medications, strange food, sick contacts, or any new events. Since it started, she has not tolerated anything orally. He has tried Powerade and water, but he would vomit it back up. He also has epigastric pain that feels like a burning pain. Nontender to palpation. He denies any diarrhea. His urine output has been poor due to poor oral intake. Otherwise patient tells me that he decided to stop taking marijuana a week ago because it is making him sick. He tells me that he stopped seeing the dictaphone mechanic 4 years ago. They had given him high-dose steroids (50 to 60 mg) and afterward he developed adrenal insufficiency. He is chronically on 8 mg. He does not remember why he has seen the dictaphone mechanic. When I was evaluating the patient in the ED, he has a plaque like rash on his face. Denies any history of lupus or psoriasis. He th inks that the rash started about a week ago. Otherwise, he has pus leaking from his right stump. It is a pale yellow color. Culture was taken and patient started on ceftaroline. Patient will be admitted for cannabis hyperemesis syndrome and acute renal failure. Home Medications Scheduled Aripiprazole (Abilify) 5 Mg Tablet, 5 MG PO DAILY, (Reported) Aspirin (Aspirin EC) 81 Mg Tablet.dr, 81 MG PO DAILY, (Reported) Atorvastatin Calcium (Atorvastatin Calcium) 40 Mg Tablet, 40 MG PO DAILY, (Reported) Brimonidine Tartrate (Alphagan P) 0.1% 5ML Drops, 1 DROP OU BID, (Reported) Citalopram Hydrobromide (Citalopram HBr) 40 Mg Tablet, 40 MG PO DAILY, (Reported) Clopidogrel Bisulfate (Plavix) 75 Mg Tablet, 75 MG PO DAILY, (Reported) Ferrous Sulfate (Ferrous Sulfate) 325 Mg Tab, 325 MG PO QWEEK, (Reported) SUNDAY Finasteride (Finasteride) 5 Mg Tablet, 5 MG PO DAILY, (Reported) Gabapentin (Gabapentin) 300 Mg Capsule, 300 MG PO BID, (Reported) Insulin Human Lispro (Novolog) 100 Unit/1 Ml Vial, 1 DOSE SC ASDIRECTED, (Reported) UP TO 100 UNITS DAILY CONTINUOUS THROUGH INSULIN PUMP Multivitamins (Thera M Plus Tablet) 1 Each Tablet, 1 TAB PO DAILY, (Reported) Pantoprazole Sodium (Pantoprazole Sodium) 40 Mg Tablet.dr, 40 MG PO BID, (Reported) Prednisone (Prednisone) 1 Mg Tablet, 3 MG PO DAILY, (Reported) TAKES WITH 5MG FOR 8MG TOTAL Prednisone (Prednisone) 5 Mg Tablet, 5 MG PO DAILY, (Reported) TAKE WITH 3MG FOR 8MG TOTAL Scheduled PRN Glucagon,Human Recombinant (Glucagon Emergency Kit) 1 Mg Vial, 1 MG IM ASDIRECTED PRN for LOW BLOOD SUGAR, (Reported) Allergies Coded Allergies: No Known Allergies (Unverified , 03/01/20) Past Medical History Medical History 1. Brittle diabetes mellitus type 1 on insulin pump 2. Diabetic neuropathy 3. Diabetic retinopathy 4. Diabetic nephropathy 5. Autonomic dysfunction secondary to longstanding diabetes 6. Adrenal insufficiency chronically on steroids 7. Peripheral arterial disease 8. History of temporal arteritis 9. Depression 10. BPH with LUTS 11. Dyslipidemia 12. Migraines Surgical History 1. Resection of lipoma 2. Bilateral BKA's 3. Cataract surgery Family History Family history includes diabetes mellitus and leukemia Social History * Smoker: former Smoker (Quit smoking in 2006) Alcohol: Denies Drugs: marijuana (Tells me that he quit marijuana a week ago) A-FIB/CHADSVASC A-FIB History Current/History of A-Fib/PAF?: No Review of Systems Constitutional: Reports: Chills; Denies: Fever Eyes: Reports: Other (Poor vision) ENT: Reports: Sore Throat Skin: Reports: Rash (Rash on face started about a week ago) Pulmonary: Denies: Dyspnea, Cough Cardiovascular: Denies: Chest Pain Gastrointestinal: Reports: Nausea, Vomiting, Abdominal Pain (Epigastric) Genitourinary: Denies: Dysuria Hematologic: Denies: Bruising Psych: Reports: Depression; Denies: Anxiety Physical Examination General Exam: Positive: Alert, Cooperative, Mild Distress Eye Exam: Positive: EOMI; Negative: Sclera icteric ENT Exam: Positive: Atraumatic Neck Exam: Positive: Supple Chest Exam: Positive: Clear to auscultation Heart Exam: Positive: Rate Normal, Regular Rhythm Abdomen Exam: Positive: Normal bowel sounds, Soft; Negative: Tenderness Extremity Exam: Positive: Other (Bilateral BKA) Skin Exam: Positive: Other skin issue (Drainage on right stump) Neuro Exam: Positive: Normal Speech, Cranial Nerves 3-12 NL Psych Exam: Positive: Anxiety; Negative: Memory Intact Vital Signs Vital Signs Date Time Temp Pulse Resp B/P (MAP) Pulse Ox O2 Delivery O2 Flow Rate FiO2 12/05/20 20:37 99.2 88 18 142/61 (88) 99 Room Air Laboratory Data Labs 24H Laboratory Tests 2 12/05/20 21:33: Anion Gap 8, Glomerular Filtration Rate 53.1, Osmolality 278L, Calcium Level 8.8, Total Bilirubin 1.3H, Direct Bilirubin 0.3H, Aspartate Amino Transf (AST/SGOT) 31, Alanine Aminotransferase (ALT/SGPT) 27, Alkaline Phosphatase 91, Total Creatine Kinase 105, Creatine Kinase MB 2.7, Creatine Kinase MB Relative Index 2.57, Troponin I 0.42H, Total Protein 6.8, Albumin 3.3, Albumin/Globulin Ratio 0.9, Lipase 23L, B-Hydroxybutyrate 1.18 12/05/20 21:34: Immature Granulocyte % (Auto) 0.5, Neutrophils (%) (Auto) 71.6H, Lymphocytes (%) (Auto) 15.3L, Monocytes (%) (Auto) 11.9H, Eosinophils (%) (Auto) 0.4, Basophils (%) (Auto) 0.3, Neutrophils # (Auto) 8.4, Lymphocytes # (Auto) 1.8, Monocytes # (Auto) 1.4H, Eosinophils # (Auto) 0.1, Basophils # (Auto) 0.0, Nucleated Red Blood Cells % (auto) 0.0, Blood Gas Bicarbonate Standard 30.1, Venous Blood pH 7.514H, Venous Blood Partial Pressure CO2 37.3L, Venous Blood Partial Pressure O2 175.8H, Venous Blood Total Carbon Dioxide 30.5H, Venous Blood HCO3 29.4H, Venous Blood Oxygen Saturation 99.3H, Venous Blood Base Excess 6.2H, Estimated Mean Plasma Glucose 177H, Hemoglobin A1c 7.8 12/05/20 22:20: Bedside Glucose (Misc Panel) 128H 12/06/20 00:21: Coronavirus (COVID-19)(PCR) NEGATIVE, Influenza Type A (RT-PCR) NEGATIVE, Influenza Type B (RT-PCR) NEGATIVE, Respiratory Syncytial Virus (PCR) NEGATIVE 12/06/20 00:36: Total Creatine Kinase 103, Creatine Kinase MB 2.6, Creatine Kinase MB Relative Index 2.52, Troponin I 0.47H 12/06/20 01:08: Bedside Glucose (Misc Panel) 55L 12/06/20 02:23: Bedside Glucose (Misc Panel) 137H CBC/BMP Laboratory Tests 12/05/20 21:33 12/05/20 21:34 Microbiology Microbiology 12/05/20 Wound Culture, Received Pending 12/05/20 Blood Culture, Received Pending 12/05/20 Blood Culture, Received Pending Assessment/Plan Mr. Girard is a 60-year-old male with diabetes mellitus type 1 on insulin pump and adrenal insufficiency who is here for intractable nausea and vomiting. I suspect that the marijuana has contributed to his intractable nausea and vomiting. We will provide supportive care with IV fluids, antiemetics, and clear liquid diet. His epigastric pain is most likely due to dyspepsia. We will start patient on I V Protonix as he is not tolerating orals. I suspect that his facial rashes psoriasis as it is scaly. Patient may benefit from seeing dermatology outpatient. Would be cautious about using topical st eroids as it would be on the face. Topical tacrolimus or topical pimecrolimus would be options. Plan / VTE VTE Prophylaxis Ordered?: Yes Plan Plan 1. Cannabis hyperemesis syndrome Suspect that this is the cause of his intractable nausea and vomiting We will provide supportive care with IV fluids and antiemetics Clear liquid diet 2. Dehydration Secondary to vomiting and poor oral intake On admission, creatinine elevated at 1.44 Baseline creatinine 1 3. Dyspepsia As patient cannot tolerate orals, we will put patient on IV Protonix 4. Adrenal insufficiency Patient chronically on prednisone. Continue prednisone 5. Right leg wound Producing pus, but no diana signs of cellulitis Wound culture obtained Ceftaroline day 1 6. Facial psoriasis Would not recommend use of topical steroids on face Patient may benefit from seeing dermatology outpatient 7. Cataracts Continue eyedrops 8. Diabetes mellitus Patient has working insulin pump When can tolerate orals can switch to carbohydrate consistent diet 9. Hyperlipidemia Continue atorvastatin 10. BPH Continue finasteride 11. Anxiety/depression Continue citalopram and Abilify 12. DVT prophylaxis Heparin SHARRI PANDEY DO Dec 06, 2020 04:07
[2020-12-06] MEDS ORDERED: BRIM1OPD OU (04:47)
[2020-12-06] MEDS ORDERED: ABIL1TAB11 PO (04:47)
[2020-12-06] MEDS ORDERED: VITMTA PO (04:47)
[2020-12-06] MEDS ORDERED: HOME MED LIST COMPLETE! XX SCH (04:50)
[2020-12-06] MEDS: NS 1,000 ML IV SCH ×3 (05:01→21:19)
[2020-12-06 05:20] VITALS: BP 173/76
[2020-12-06] MEDS ORDERED: GLUCOSE 4GM CHEW TABLET PO PRN (05:55)
[2020-12-06] MEDS ORDERED: GLUCAGON INJ 1MG VIAL SC PRN (05:55)
[2020-12-06] MEDS ORDERED: DEXTROSE 50% 50 ML SYRINGE IV PRN (05:55)
[2020-12-06] MEDS: PANTOPRAZOLE 40MG VIAL (C9113 PER 1) IV SCH ×2 (06:15→18:27)
[2020-12-06] MEDS ORDERED: HumaLOG INSULIN (NovoLOG) PER UNIT XX SCH (06:45)
[2020-12-06 07:05] LABS: HEMATOCRIT 33.1 % (42.0-52.0); HEMOGLOBIN 11.6 g/dl (13.5-17.5); MEAN CORPUSCULAR HEMOGLOBIN 31.4 pg (27.0-33.0); MEAN CORPUSCULAR VOLUME 89.5 fl (80.0-96.0); PLATELET COUNT, AUTOMATED 185 10^3/uL (150-450); WHITE BLOOD COUNT 8.5 10^3/uL (4.0-10.0)
[2020-12-06 07:23] LABS: BLOOD UREA NITROGEN 25 MG/DL (7-18); CALCIUM LEVEL 7.9 MG/DL (8.8-10.2); CARBON DIOXIDE LEVEL 27 MEQ/L (21-32); CHLORIDE LEVEL 99 MEQ/L (98-107); CREATININE FOR GFR 1.15 MG/DL (0.70-1.30); GLOMERULAR FILTRATION RATE > 60.0 (>49); GLUCOSE, FASTING 135 MG/DL (70-100); POTASSIUM SERUM 3.7 MEQ/L (3.5-5.1); SODIUM LEVEL 134 MEQ/L (136-145)
[2020-12-06] MEDS ORDERED: HumaLOG INSULIN (NovoLOG) PER UNIT SC SCH ×2 (07:30→21:00)
[2020-12-06 07:59] LABS: CK-MB VALUE MASS 2.3 NG/ML (<3.6); CPK CREATINE PHOSPHOKINASE 96 U/L (39-308); TROPONIN I 0.34 NG/ML (< 0.10)
[2020-12-06] MEDS: CitaloPRAM (CeleXA) 20 MG TAB PO SCH (08:36)
[2020-12-06] MEDS: FINASTERIDE 5 MG TAB PO SCH (08:37)
[2020-12-06] MEDS: CLOPIDOGREL 75 MG TAB PO SCH (08:37)
[2020-12-06] MEDS: ATORVASTATIN 20 MG TAB PO SCH (08:37)
[2020-12-06] MEDS: predniSONE 1 MG TAB PO SCH (08:37)
[2020-12-06] MEDS: GABAPENTIN 300 MG CAP PO SCH ×2 (08:37→21:18)
[2020-12-06] MEDS: ASPIRIN 81MG ENTERIC TABLET PO SCH (08:37)
[2020-12-06] MEDS: HEPARIN SOD (PORCINE) 5000UNITS/ML 1ML VIAL/SYRINGE SC SCH ×2 (08:38→21:18)
[2020-12-06] MEDS: MULTIVITAMINS/MINERALS THERAP 1 TAB PO SCH (08:38)
[2020-12-06] MEDS: BRIMONIDINE 0.1% OPHTH SOLN 5 ML OU SCH ×2 (08:39→21:18)
[2020-12-06 11:30] VITALS: BP 130/78
[2020-12-06] MEDS: SUCRALFATE 1 GM TAB PO SCH ×2 (12:00→17:08)
[2020-12-06 12:56] LABS: BLOOD UREA NITROGEN 24 MG/DL (7-18); CALCIUM LEVEL 7.8 MG/DL (8.8-10.2); CARBON DIOXIDE LEVEL 24 MEQ/L (21-32); CHLORIDE LEVEL 96 MEQ/L (98-107); CREATININE FOR GFR 1.13 MG/DL (0.70-1.30); GLOMERULAR FILTRATION RATE > 60.0 (>49); GLUCOSE, FASTING 252 MG/DL (70-100); POTASSIUM SERUM 4.2 MEQ/L (3.5-5.1); SODIUM LEVEL 130 MEQ/L (136-145)
[2020-12-06] MEDS ORDERED: FLUBLOK(EGG FREE)(QUAD)INFLUENZA VACC 0.5ML SYRINGE 18YRS & OLDER IM ONE (13:00)
--- NOTE | 2020-12-06 13:24 | REP ---
INDICATION: pus draining from Left stump. Bilateral BKA COMPARISON: None. TECHNIQUE: 2D Doppler ultrasound evaluation of the left lower extremity was obtained in multiple projections and supplemented by color Doppler. FINDINGS: There is a 5.1 x 3.4 x 1.0 cm complex fluid collection at the tip of the stump, abutting the osteotomy. There is increased periosteal blood flow deep to the collection. There is a fistulous tract from the collection extending to the skin surface. IMPRESSION: Periosteal abscess with fistulous tract extending to the skin surface. <Electronically signed by Hermann Rodriguez > 12/06/20 [id number]
[2020-12-06] MEDS: ONDANSETRON 4MG/2ML VIAL IV PRN ×2 (13:28→23:20)
[2020-12-06 13:31] LABS: TROPONIN I 0.22 NG/ML (< 0.10)
--- NOTE | 2020-12-06 15:29 | IPNPDOC ---
Date Seen The patient was seen on 12/06/20. Progress Note SUBJECTIVE: Patient is a 60-year-old male with PMHx of Diabetes Type I w/ insulin pump, Adrenal insufficiency chronically on steroids and PAD presented to the ED for intractable nausea and vomiting for the past 4 days. Patient was seen today at bedside and he states that he is not feeling well. He says that he is constantly nauseous and has vomiting several times a day. He has tried to drink more "carbs" by having Gatorade/Powerade but when he does drink he frequently is unable to keep it down. Overnight he says he has been trying to drink some Lydia madonna but is still feels nausea and vomiting. He was seen dry heaving and spitting into emesis bag. He also states that around 1 week ago, he did stop smoking marijuana because it was making him "not feel good". A wound adhesive was seen on his Right stump. Pt said that he has had bilateral leg amputations because of his diabetes and the amputations happened in 2017 and 2019. The wound on Right stump was leaking pus; patient was not sure when he first noticed it. He does states that he has not been using his Right leg prosthesis as it needs to be refitted again. Positive for nausea, vomiting, chills. Negative for fever, chest pain, shortness of breath, palpations. OBJECTIVE PHYSICAL EXAMINATION: VITAL SIGNS: Please see below. GENERAL: in moderate distress; seen dry heaving and spitting into emesis bag HEENT: Head normocephalic atraumatic; dry mucus membranes CARDIOVASCULAR: regular rate and rhythm; systolic murmur noted RESPIRATORY: clear to auscultation bilaterally; no wheezing or rales or rhonchi ABDOMINAL: normoactive bowel sounds; soft, nondistended; nontender to palpation EXTREMITIES: bilateral lower leg amputation below the knee; after peeling back wound dressing, pt is profusely draining purulence from the Right stump LABORATORY DATA, IMAGING STUDIES, MICROBIOLOGY: Please see below. CXR 12/05: "Stable chest since 08/14/2020. No acute interval process is identified." Abdomen/Pelvis CT 12/06: "1. There is calcification of the vas deferens consistent with diabetes. 2. Mild pancreatic atrophy for age. 3. Minimal hiatal hernia. 4. Nonobstructing bilateral renal calculi. 5. Bibasilar bullous change with interstitial coarsening and minimal fibro- atelectatic change 6. Otherwise negative CT abdomen/pelvis with little change from 12/09/2018. No bowel obstruction." US of Lower Extremity 12/06: "Periosteal abscess with fistulous tract extending to the skin surface." DVT prophylaxis ordered?: Yes; Heparin 5000U BID ASSESSMENT AND PLAN: Patient is a 60-year-old male with PMHx of Diabetes Type I w/ insulin, Adrenal insufficiency chronically on steroids and PAD presented to the ED for intractable nausea and vomiting for the past 4 days concerning for Hyperemesis as well as Type 2 OH vs ACD. PROBLEMS: # Hyperemesis - intractable nausea and vomiting - possibly due to him stopping Cannibis 1 week ago vs gastroenteritis - Clear liquid diet - IV Zofran q6hrs and Reglan q8hrs - IV pantoprazole 40mg q12h and PO carafate to protect stomach lining # Type 2 OH vs ACD - patient currently not complaining of chest pain/palpitations - Troponins: 0.43 -> 0.47 -> 0.34 -> 0.22 - Placed on 48 hr telemetry - EKG ordered: no acute ST elevation/depressions noted # Purulent Discharge/Right stump wound - blood cultures and wound cultures pending - will obtain an ultrasound as patient's renal function (Cr 1.44) was initially elevated - c/w IV ceftaroline 400mg q12h as it covers MRSA, gram + and - - surgery consulted as US LE showed "Periosteal abscess with fistulous tract extending to the skin surface"; we appreciate their input in the care of this patient # Diabetes Type I - has an insulin pump; patient will use his insulin pump while inpatient as well - hypoglycemia protocol in place as he had a sugar level of 55 - fingerstick checks every 6 hours due to prior frequent hypoglycemic events - HbA1c was 7.8 - diet: consistent carb diet #Adrenal Insufficiency - he is chronically on PO prednisone 8mg daily; will continue # Peripheral Artery Disease - possibly associated with diabetes - s/p b/l amputations from knee down # DVT prophylaxis - Heparin 5000U BID DISPOSITION: pending surgical evaluation and clinical improvement VS, I&O, 24H, Fishbone Vital Signs/I&O Vital Signs Date Time Temp Pulse Resp B/P (MAP) Pulse Ox O2 Delivery O2 Flow Rate FiO2 12/06/20 05:20 98.2 80 16 173/76 (108) 98 Room Air I&O- Last 24 Hours up to 6 AM 12/06/20 06:00 Intake Total 2000 ml Balance 2000 ml Laboratory Data 24H LABS Laboratory Tests 2 12/05/20 21:33: Anion Gap 8, Glomerular Filtration Rate 53.1, Osmolality 278L, Calcium Level 8.8, Total Bilirubin 1.3H, Direct Bilirubin 0.3H, Aspartate Amino Transf (AST/SGOT) 31, Alanine Aminotransferase (ALT/SGPT) 27, Alkaline Phosphatase 91, Total Creatine Kinase 105, Creatine Kinase MB 2.7, Creatine Kinase MB Relative Index 2.57, Troponin I 0.42H, Total Protein 6.8, Albumin 3.3, Albumin/Globulin Ratio 0.9, Lipase 23L, B-Hydroxybutyrate 1.18 12/05/20 21:34: Immature Granulocyte % (Auto) 0.5, Neutrophils (%) (Auto) 71.6H, Lymphocytes (%) (Auto) 15.3L, Monocytes (%) (Auto) 11.9H, Eosinophils (%) (Auto) 0.4, Basophils (%) (Auto) 0.3, Neutrophils # (Auto) 8.4, Lymphocytes # (Auto) 1.8, Monocytes # (Auto) 1.4H, Eosinophils # (Auto) 0.1, Basophils # (Auto) 0.0, Nucleated Red Blood Cells % (auto) 0.0, Blood Gas Bicarbonate Standard 30.1, Venous Blood pH 7.514H, Venous Blood Partial Pressure CO2 37.3L, Venous Blood Partial Pressure O2 175.8H, Venous Blood Total Carbon Dioxide 30.5H, Venous Blood HCO3 29.4H, Venous Blood Oxygen Saturation 99.3H, Venous Blood Base Excess 6.2H, Estimated Mean Plasma Glucose 177H, Hemoglobin A1c 7.8 12/05/20 22:20: Bedside Glucose (Misc Panel) 128H 12/06/20 00:21: Coronavirus (COVID-19)(PCR) NEGATIVE, Influenza Type A (RT-PCR) NEGATIVE, Influenza Type B (RT-PCR) NEGATIVE, Respiratory Syncytial Virus (PCR) NEGATIVE 12/06/20 00:36: Total Creatine Kinase 103, Creatine Kinase MB 2.6, Creatine Kinase MB Relative Index 2.52, Troponin I 0.47H 12/06/20 01:08: Bedside Glucose (Misc Panel) 55L 12/06/20 02:23: Bedside Glucose (Misc Panel) 137H 12/06/20 05:03: Bedside Glucose (Misc Panel) 153H 12/06/20 06:19: Nucleated Red Blood Cells % (auto) 0.0, Anion Gap 8, Glomerular Filtration Rate > 60.0, Calcium Level 7.9L, Total Creatine Kinase 96, Creatine Kinase MB 2.3, Creatine Kinase MB Relative Index 2.40, Troponin I 0.34#H CBC/BMP Laboratory Tests 12/05/20 21:33 12/05/20 21:34 12/06/20 06:19 Microbiology Microbiology 12/05/20 Wound Culture, Received Pending 12/05/20 Blood Culture, Received Pending 12/05/20 Blood Culture, Received Pending GME ATTESTATION GME ATTESTATION My faculty preceptor for this patient encounter was physically present during the encounter and was fully available. All aspects of the patient interview, examination, medical decision making process, and medical care plan development were reviewed and approved by the faculty preceptor. The faculty preceptor is aware and concurs with the plan as stated in the body of this note and will attest to such by his/her cosignature. Claribel Lamb DO Dec 06, 2020 12:02
[2020-12-06 16:00] VITALS: BP 142/50
--- NOTE | 2020-12-06 16:50 | ECGEPIP ---
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
--- NOTE | 2020-12-06 16:52 | ECGEPIP ---
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
[2020-12-06 17:02] LABS: BLOOD UREA NITROGEN 24 MG/DL (7-18); CALCIUM LEVEL 7.7 MG/DL (8.8-10.2); CARBON DIOXIDE LEVEL 25 MEQ/L (21-32); CHLORIDE LEVEL 99 MEQ/L (98-107); CREATININE FOR GFR 1.09 MG/DL (0.70-1.30); GLOMERULAR FILTRATION RATE > 60.0 (>49); GLUCOSE, FASTING 210 MG/DL (70-100); POTASSIUM SERUM 4.8 MEQ/L (3.5-5.1); SODIUM LEVEL 131 MEQ/L (136-145)
[2020-12-06 20:00] VITALS: BP 161/72
[2020-12-06] MEDS ORDERED: LEVEMIR (INSULIN DETEMIR) 1 UNITS/0.01ML SC SCH (21:00)
[2020-12-06] MEDS: CEFTAROLINE FOSAMIL 400 MG in D5W MINI-BAG PLUS 50 ML IV SCH (21:17)
[2020-12-07] VITALS (7 sets, daily range): BP systolic 129–260; BP diastolic 60–115
[2020-12-07 02:58] LABS: BLOOD UREA NITROGEN 18 MG/DL (7-18); CALCIUM LEVEL 8.1 MG/DL (8.8-10.2); CARBON DIOXIDE LEVEL 28 MEQ/L (21-32); CHLORIDE LEVEL 102 MEQ/L (98-107); CREATININE FOR GFR 1.15 MG/DL (0.70-1.30); GLOMERULAR FILTRATION RATE > 60.0 (>49); GLUCOSE, FASTING 186 MG/DL (70-100); POTASSIUM SERUM 3.6 MEQ/L (3.5-5.1); SODIUM LEVEL 137 MEQ/L (136-145)
[2020-12-07] MEDS: CEFTAROLINE FOSAMIL 400 MG in D5W MINI-BAG PLUS 50 ML IV SCH ×2 (05:33→18:25)
[2020-12-07] MEDS: PANTOPRAZOLE 40MG VIAL (C9113 PER 1) IV SCH ×2 (05:33→17:35)
[2020-12-07 08:16] LABS: HEMATOCRIT 31.5 % (42.0-52.0); HEMOGLOBIN 10.9 g/dl (13.5-17.5); MEAN CORPUSCULAR HEMOGLOBIN 31.3 pg (27.0-33.0); MEAN CORPUSCULAR HGB CONC 34.6 g/dl (32.0-36.5); MEAN CORPUSCULAR VOLUME 90.5 fl (80.0-96.0); PLATELET COUNT, AUTOMATED 195 10^3/uL (150-450); RED BLOOD COUNT 3.48 10^6/uL (4.30-6.10); WHITE BLOOD COUNT 5.6 10^3/uL (4.0-10.0)
[2020-12-07] MEDS: CitaloPRAM (CeleXA) 20 MG TAB PO SCH (08:26)
[2020-12-07] MEDS: ASPIRIN 81MG ENTERIC TABLET PO SCH (08:26)
[2020-12-07] MEDS: CLOPIDOGREL 75 MG TAB PO SCH (08:26)
[2020-12-07] MEDS: GABAPENTIN 300 MG CAP PO SCH ×2 (08:27→21:48)
[2020-12-07] MEDS: ONDANSETRON 4MG/2ML VIAL IV PRN ×2 (08:27→11:28)
[2020-12-07] MEDS: ATORVASTATIN 20 MG TAB PO SCH (08:27)
[2020-12-07] MEDS: MULTIVITAMINS/MINERALS THERAP 1 TAB PO SCH (08:27)
[2020-12-07] MEDS: FINASTERIDE 5 MG TAB PO SCH (08:27)
[2020-12-07] MEDS: BRIMONIDINE 0.1% OPHTH SOLN 5 ML OU SCH ×3 (08:28→21:46)
[2020-12-07] MEDS: HEPARIN SOD (PORCINE) 5000UNITS/ML 1ML VIAL/SYRINGE SC SCH ×2 (08:28→21:49)
[2020-12-07] MEDS: SUCRALFATE 1 GM TAB PO SCH ×3 (08:28→17:36)
[2020-12-07] MEDS: predniSONE 1 MG TAB PO SCH (08:35)
[2020-12-07 08:44] LABS: BLOOD UREA NITROGEN 16 MG/DL (7-18); CARBON DIOXIDE LEVEL 26 MEQ/L (21-32); CHLORIDE LEVEL 102 MEQ/L (98-107); CREATININE FOR GFR 1.07 MG/DL (0.70-1.30); GLOMERULAR FILTRATION RATE > 60.0 (>49); GLUCOSE, FASTING 251 MG/DL (70-100); POTASSIUM SERUM 3.9 MEQ/L (3.5-5.1); SODIUM LEVEL 135 MEQ/L (136-145)
[2020-12-07] MEDS ORDERED: hydrALAZINE 20MG/ML 1ML VIAL (J0360 PER 20MG) IV ONE (08:45)
[2020-12-07] MEDS: NYSTATIN 500,000 U/5 ML SUSP UDC SS SCH ×4 (09:00→21:46)
[2020-12-07] MEDS ORDERED: ISOVUE-370 76% 100ML VIAL As Ordered ONE (09:50)
[2020-12-07] MEDS: CADEXOMER IODINE 10GM (IODOSORB) GEL TOP SCH ×2 (12:07→21:00)
[2020-12-07] MEDS: METOCLOPRAMIDE INJ 10MG/2ML VIAL (J2765 PER 1) IV PRN (12:20)
[2020-12-07] MEDS ORDERED: SENNA 8.6 MG TAB (SENOKOT) PO PRN (13:05)
[2020-12-07] MEDS: HumaLOG INSULIN (NovoLOG) PER UNIT SC SCH ×2 (13:26→17:36)
--- NOTE | 2020-12-07 15:06 | CR ---
CONSULTATION DATE: 12/07/2020 CONSULTATION REQUESTED BY: Dr. Lamb Wound care telemedicine provides a visual assessment of a wound without the benefit of physical examination. It can assist with establishing a diagnosis and etiology. This allows for an initial treatment plan. As wounds often change, it may be necessary to modify the original care. Our recommendation is periodic wound reassessment to monitor treatment. Failure to comply may result in nonhealing of the wound, possible complications, and/or a poor outcome. The recommendations given will serve as treatment options. As I will not be following this patient, this care plan will require the attending physician to give and sign the orders. Upon discharge, outpatient followup can be scheduled at our wound care center. A 60-year-old longstanding diabetic admitted for gastrointestinal (GI) complaints, nausea, vomiting, and also found to have a wound located at the central portion of a right below-knee amputation. Patient previously has had a left below-knee amputation. He was last seen in our wound care center in February 2020. Two issues are occurring, number one, the GI issue, and number two, the wound. In terms of the gastrointestinal (GI) issue, abdominal x-rays are indicated to rule out any potential ileus and/or small bowel partial obstruction. Diabetics can have gastroparesis, which is diagnosed with a gastric emptying study. In terms of the wound, the central portion of the suture line of his right below-knee amputation measures 0.5 cm x 0.5 cm. There is underlying necrotic tissue and a serous drainage. There is no erythema noted. There is mild stump edema. Patient previously has been treated with Betadine and a gauze dressing. RECOMMENDATIONS: Patient should have a CT angiogram, distal aorta, bilateral runoff, to evaluate that there is appropriate vascular supply to the right lower extremity. Additionally, an MRI of the right below-knee amputation stump should be obtained to evaluate for osteomyelitis and/or bone sequestration, which is detached necrotic bone. In terms of a treatment, the wound should be cleansed with Vashe wound cleanser for 10 minutes, then topical Iodosorb. Cadexomer iodine should be applied to the wound covered with a Hydrofera Blue Ready foam. Dressing is to be changed every other day. Patient's recent hemoglobin A1c is 7.8. His GFR is 53.1. Normal white count and a hemoglobin and hematocrit of 10.9 and 31. At present, no indication for antibiotic therapy. If there is an abnormality involving the CT angiogram, a consult with interventional radiology, Dr. De Luna, is indicated. Stump ophthalmic medical technologist should be applied to control edema of the right below-knee amputation site. If the patient so desires he can be scheduled for follow-up evaluation and treatment at our wound care center. ERLIN
--- NOTE | 2020-12-07 16:19 | IPNPDOC ---
Date Seen The patient was seen on 12/07/20. Progress Note SUBJECTIVE: Patient is a 60-year-old male with PMHx of Diabetes Type I w/ insulin pump, Adrenal insufficiency chronically on steroids and PAD presented to the ED for intractable nausea and vomiting for the past 4 days. Patient was seen at bedside in moderate distress this morning; he says that he "feels like crap". He was seen vomiting and spitting into an emesis bag. He has not been able to keep down liquids like water and kaylin madonna. He also states that he has not had a bowel movement for the past 3 days and would like to take something to relieve him. He has been having chills overnight. Patient follows up with wound care outpatient and would like us to speak with Dr. Ledesma in regards to the pus draining out of his Right stump. He is also complaining of some upper abdominal pain as he is constantly throwing up and "karen his stomach". Denies fevers, headaches, chest pain, shortness of breath, palpitations. OBJECTIVE PHYSICAL EXAMINATION: VITAL SIGNS: Please see below. GENERAL: in moderate distress; seen vomiting and spitting into emesis bag HEENT: Head normocephalic atraumatic; dry mucus membranes; white film on tongue CARDIOVASCULAR: Regular rate and rhythm; systolic murmur noted RESPIRATORY: Clear to auscultation bilaterally; no wheezing or rales or rhonchi noted ABDOMINAL: Normoactive bowel sounds; soft, nondistended; some epigastric tend erness to palpation EXTREMITIES: bilateral lower leg amputation below the knee; Right stump wound n ot covered with dressing; pt is profusely draining purulence from the Right stump NEUROLOGICAL: CN II-XII grossly intact LABORATORY DATA, IMAGING STUDIES, MICROBIOLOGY: Please see below. CXR 12/05: "Stable chest since 08/14/2020. No acute interval process is identified." Abdomen/Pelvis CT 12/06: "1. There is calcification of the vas deferens consistent with diabetes. 2. Mild pancreatic atrophy for age. 3. Minimal hiatal hernia. 4. Nonobstructing bilateral renal calculi. 5. Bibasilar bullous change with interstitial coarsening and minimal fibro- atelectatic change 6. Otherwise negative CT abdomen/pelvis with little change from 12/09/2018. No bowel obstruction." US of Lower Extremity 12/06: "Periosteal abscess with fistulous tract extending to the skin surface." DVT prophylaxis ordered?: Yes; Heparin 5000U BID ASSESSMENT AND PLAN: Patient is a 60-year-old male with PMHx of Diabetes Type I w/ insulin, Adrenal insufficiency chronically on steroids and PAD presented to the ED for intractable nausea and vomiting for the past 4 days concerning for Hyperemesis as well as Type 2 TN vs ACD. PROBLEMS: # Hyperemesis - intractable nausea and vomiting - possibly due to him stopping Cannibis 1 week ago vs gastroenteritis - Clear liquid diet - IV Zofran q6hrs and Reglan q8hrs - IV pantoprazole 40mg q12h and PO carafate to protect stomach lining - continue with hot showers - abdominal x-rays are indicated to r/o any potential ileus and/or small bowel partial obstruction # Type 2 TN - patient currently not complaining of chest pain/palpitations - Troponins: 0.43 -> 0.47 -> 0.34 -> 0.22 - Placed on 48 hr telemetry - EKG ordered: no acute ST elevation/depressions noted - pending echocardiogram # Purulent Discharge/Right stump wound - blood cultures and wound cultures pending - will obtain an ultrasound as patient's renal function (Cr 1.44) was initially elevated - c/w IV ceftaroline 400mg q12h as it covers MRSA, gram + and - - Vascular surgery consulted as US LE showed "Periosteal abscess with fistulous tract extending to the skin surface"; we appreciate their input in the care of this patient - consulted Dr. Ledesma and will arrange for a telemedicine encounter; we appreciate his input in the care of this patient - as per Dr. Ledesma will order a CTA abdominal aorta to assess for vascularization; Topical iodosorb gel as well as MRI for further evaluation - wound care: wound should be cleansed with Vashe wound cleanser for 10 minutes, then topical Iodosorb. Cadexomer iodine should be applied to the wound covered with a Hydrofera Blue Ready foam. Dressing is to be changed every other day. # Diabetes Type I - has an insulin pump; patient will discontinue his insulin pump - hypoglycemia protocol in place as he had a sugar level of 55 - fingerstick checks every 6 hours due to prior frequent hypoglycemic events - HbA1c was 7.8 - will start patient on insulin sliding scale while inpatient as patient is having hypoglycemia events while on his insulin pump - diet: consistent carb diet #Adrenal Insufficiency - he is chronically on PO prednisone 8mg daily; will continue # Peripheral Artery Disease - possibly associated with diabetes - s/p b/l amputations from knee down # DVT prophylaxis - Heparin 5000U BID DISPOSITION: pending surgical evaluation and clinical improvement VS, I&O, 24H, Fishbone Vital Signs/I&O Vital Signs Date Time Temp Pulse Resp B/P (MAP) Pulse Ox O2 Delivery O2 Flow Rate FiO2 12/07/20 12:00 98.3 88 17 178/74 (108) 99 Room Air I&O- Last 24 Hours up to 6 AM 12/07/20 06:00 Intake Total 2870 ml Output Total 2150 ml Balance 720 ml Laboratory Data 24H LABS Laboratory Tests 2 12/06/20 14:31: Bedside Glucose (Misc Panel) 249H 12/06/20 16:37: Anion Gap 7L, Glomerular Filtration Rate > 60.0, Calcium Level 7.7L 12/06/20 18:24: Bedside Glucose (Misc Panel) 170H 12/06/20 21:26: Bedside Glucose (Misc Panel) 64L 12/06/20 23:12: Bedside Glucose (Misc Panel) 54L 12/07/20 01:31: Bedside Glucose (Misc Panel) 65L 12/07/20 02:03: Anion Gap 7L, Glomerular Filtration Rate > 60.0, Calcium Level 8.1L 12/07/20 03:38: Bedside Glucose (Misc Panel) 175H 12/07/20 07:53: Nucleated Red Blood Cells % (auto) 0.0, Anion Gap 7L, Glomerular Filtration Rate > 60.0, Calcium Level 8.0L 12/07/20 08:39: Bedside Glucose (Misc Panel) 252H 12/07/20 12:11: Bedside Glucose (Misc Panel) 361H CBC/BMP Laboratory Tests 12/06/20 16:37 12/07/20 02:03 12/07/20 07:53 Microbiology Microbiology 12/05/20 Wound Culture, Received Pending 12/05/20 Blood Culture - Preliminary, Resulted No growth after 24 hours . All specim... 12/05/20 Blood Culture - Preliminary, Resulted No growth after 24 hours . All specim... GME ATTESTATION GME ATTESTATION My faculty preceptor for this patient encounter was physically present during the encounter and was fully available. All aspects of the patient interview, examination, medical decision making process, and medical care plan development were reviewed and approved by the faculty preceptor. The faculty preceptor is aware and concurs with the plan as stated in the body of this note and will attest to such by his/her cosignature. Claribel Lamb DO Dec 07, 2020 13:48
--- NOTE | 2020-12-07 17:20 | CR.PDOC ---
General Date of Consultation: Dec 07, 2020 Referring Provider: ULISES SU MD Attending Physician: Anais Jones MD Consultation REASON FOR CONSULTATION/CHIEF COMPLAINT: Abscess right below-knee amputation stump, history of bilateral below-knee amputations. HISTORY OF PRESENT ILLNESS: The patient is a 60-year-old male, who was hospitalized on 12/05/2020, with intractable vomiting and nausea. He also had a history of right below-knee amputated stump drainage, from a sinus, since the past 3 weeks. He feels febrile and has chills today. He smoked marijuana, prior to the vomit ing on 12/02/2020, and I attribute it to his nausea and vomiting, to smoking marijuana, which he has been doing, since the age of 12, and has been smoking literally every day since then. He is a type I diabetic, since more than 40 years, and has an insulin pump. The pump was stopped, as the patient is unable to tolerate any oral intake, since the past few days, to prevent dehydration and significant hypoglycemia. On hospitalization, he was also noted to have severe dehydration, with the acute kidney injury-with creatinine increasing to 1.44. The patient had bilateral below-knee amputations, for diabetic foot infections, associated with osteomyelitis, and also possibly peripheral arterial disease- which would not be revascularized. He had left below-knee amputation, by Dr. Echevarria in 2017, and right below-knee amputation, by Dr. Thapa on March 08, 2020. Since the right below-knee amputation, the patient has been hospitalized multiple times, with the drainage and cellulitis, of the right below-knee stump. The patient is mostly wheelchair-bound. He also has bilateral prosthetic limbs. However he has not been using the right leg prosthesis, since almost a month. The patient also has significant history of diabetic neuropathy, retinopathy, cataracts, and gastroparesis. ALLERGIES: Denies any significant drug allergies. HOME MEDICATIONS: Please see below. PAST MEDICAL HISTORY: 1. As mentioned above- Brittle type 1 diabetes mellitus-on insulin pump, complicated by diabetic neuropathy and retinopathy. 2. Gastroparesis, and autonomic dysfunction secondary to longstanding diabetes 3. Peripheral arterial disease, with history of gangrene of the toes and osteomyelitis 4. History of rheumatoid arthritis, chronically on steroids -with secondary adrenal insufficiency secondary to the steroids. 5. Depression. 6. BPH with lower urinary tract symptoms 7. Dyslipidemia 8. Migraines 9. Acute kidney injury on the current admission currently resolved. 10. Marijuana abuse till the current admission 11. History of smoking(nicotine abuse), and alcohol abuse 12. History of COVID-19 infection-currently COVID-19 PCR negative on 12/06/2020 PAST SURGICAL HISTORY: 1. Bilateral below-knee amputations-as specified in history 2. Cataract surgery 3. Injury to the right wrist, after smashing the hand through a window FAMILY HISTORY: History of diabetes mellitus SOCIAL HISTORY: Marital status and/or living arrangements: Lives alone, with his 2 dogs. His mother lives next door, and is involved in his care actively. Employment: On disability Tobacco use: Quit smoking in 2006 ETOH: Quit alcohol 30 years ago Illicit drug use: Marijuana-last smoked on 12/02/2020 IV drug use: None REVIEW OF SYSTEMS: CONSTITUTIONAL: Feels febrile, with chills, significant weakness. HEENT: Chronic rash on his face. CARDIOVASCULAR: States that he has a chronic cardiac murmur RESPIRATORY: Denies cough, chest pain, dyspnea GENITOURINARY: Lower urinary tract symptoms-being treated with finasteride. MUSCULOSKELETAL: Generalized aches and pains. GASTROINTESTINAL: Incessant nausea and vomiting. SKIN: Rash on the face and upper chest. NEUROLOGICAL: No focal symptoms. PSYCHIATRIC: Depressed. ENDOCRINE: History of secondary adrenal insufficiency-on continuous steroids currently. HEMATOLOGIC/LYMPHATIC: Anemia. ALLERGIC/IMMUNOLOGIC: History of arthritis, and temporal arteritis-for which steroids were prescribed. PHYSICAL EXAMINATION: VITAL SIGNS: Please see below. GENERAL APPEARANCE: The patient is a sick looking middle-aged, medium built gentleman, who is in moderate distress, secondary to his nausea and vomiting. HEENT: Anasarca, periorbital edema, anemia. No jugular venous distention RESPIRATORY: Bilateral equal air entry, decreased at the bases, no crypts or r honchi. CARDIOVASCULAR: Sinus tachycardia, pansystolic murmur 3/6, along the entire precordium, radiating to the carotids bilaterally. The right brachial and radial pulses are not palpable however have a strong biphasic dopplerable signals. The left radial pulse is +1 palpable. Both hands are warm, pink, with good perfusion otherwise. Bilateral femoral pulses are +2 palpable. Bilateral popliteal pulses are not palpable. There is a strong dopplerable signal, in the right popliteal fossa. ABDOMEN: Soft, nondistended, nontender. Bruising-from subcutaneous heparin, and subcutaneous insulin pump noted. EXTREMITIES: Warm and well perfused. Bilateral below-knee amputations noted. The left amputated stump is viable and well-healed. The right below-knee amputated stump has draining sinus from the incision site, measuring 0.5 x 0.5 cm,, with significant erythema, bogginess, and tenderness. The sinus probed, up to the bone, and 5 cm deep, with seropurulent drainage NEUROLOGICAL: Nonfocal exam. PSYCHIATRIC: Anxious and mildly depressed. Relevant labs and images reviewed. 12/06/2020: 2D Doppler ultrasound evaluation of the left lower extremity was obtained in multiple projections and supplemented by color Doppler. FINDINGS: There is a 5.1 x 3.4 x 1.0 cm complex fluid collection at the tip of the stump, abutting the osteotomy. There is increased periosteal blood flow deep to the collection. There is a fistulous tract from the collection extending to the skin surface. IMPRESSION: Periosteal abscess with fistulous tract extending to the skin surface. CT scan of the abdomen and pelvis without contrast: 12/05/2020: IMPRESSION: 1. There is calcification of the vas deferens consistent with diabetes. 2. Mild pancreatic atrophy for age. 3. Minimal hiatal hernia. 4. Nonobstructing bilateral renal calculi. 5. Bibasilar bullous change with interstitial coarsening and minimal fibro-atelectatic change 6. Otherwise negative CT abdomen/pelvis with little change from 12/09/2018. No bowel obstruction. LABORATORY DATA: Please see below. I&O- Last 24 Hours up to 6 AM 12/07/20 06:00 Intake Total 2870 ml Output Total 2150 ml Balance 720 ml ASSESSMENT/PLAN: 1. Right below-knee amputation stump infection, with abscess and osteomyelitis, associated with intractable nausea and vomiting. Blood cultures in the past 24 hours, then negative. Wound cultures were obtained yesterday-results are pend ing. He was evaluated by wound care-telemetry consult was performed by Dr. Ledesma, who advised CT angiogram of the abdomen with lower extremity runoff, to evaluate perfusion to the legs. I would not recommend CT angiogram, given his dehydration, and recent increase in creatinine, especially in a diabetic patient, who is at risk for contrast-induced nephropathy. On examination, he has palpable femoral pulses, and a strong dopplerable signal, in the right popliteal fossa-no cyanosis or significant breakdown of the stump, suggestive of significant ischemia, although he has history of peripheral arterial disease He requires urgent incision and drainage, the right below-knee abscess, along with the possible resection of the infected bone, followed by aggressive wound care and secondary closure of the BKA stump/revision to an above-knee amputation. This was explained, to the patient, as well as Dr Su. The patient will be kept n.p.o., after midnight, for possible drainage of the right BKA tomorrow. Although he feels febrile, his temperatures have been normal. His leukocytosis, has resolved since his admission, and he is on intravenous Ceftaroline currently 2. History of peripheral arterial disease. As mentioned above, has right BKA stump is infected rather than ischemic. 3. Intractable nausea and vomiting, possibly secondary to the infective process-although he is hospitalized, with a diagnosis of cannabis hyperemesis syndrome. Continue IV hydration. 4. History of chronic steroid use, and adrenal insufficiency. Continue prednisone. 5. Significant cardiac murmur, radiating to the carotid arteries bilaterally, in a patient with type 1 diabetes, right BKA abscess, who is on chronic steroids-await echocardiogram results. Consider infective endocarditis work-up if indicated. 6. Continue supportive care of other comorbidities, including treatment for anxiety/depression, hyperlipidemia and BPH. Continue aspirin, Plavix, subcutaneous heparin, and statins. Vital Signs/I&O Vital Signs Date Time Temp Pulse Resp B/P (MAP) Pulse Ox O2 Delivery O2 Flow Rate FiO2 12/07/20 12:00 98.3 88 17 178/74 (108) 99 Room Air I&O- Last 24 Hours up to 6 AM 12/07/20 06:00 Intake Total 2870 ml Output Total 2150 ml Balance 720 ml Laboratory Data Labs 24H Laboratory Tests 2 12/06/20 18:24: Bedside Glucose (Misc Panel) 170H 12/06/20 21:26: Bedside Glucose (Misc Panel) 64L 12/06/20 23:12: Bedside Glucose (Misc Panel) 54L 12/07/20 01:31: Bedside Glucose (Misc Panel) 65L 12/07/20 02:03: Anion Gap 7L, Glomerular Filtration Rate > 60.0, Calcium Level 8.1L 12/07/20 03:38: Bedside Glucose (Misc Panel) 175H 12/07/20 07:53: Anion Gap 7L, Glomerular Filtration Rate > 60.0, Calcium Level 8.0L, Nucleated Red Blood Cells % (auto) 0.0 12/07/20 08:39: Bedside Glucose (Misc Panel) 252H 12/07/20 12:11: Bedside Glucose (Misc Panel) 361H 12/07/20 16:43: Bedside Glucose (Misc Panel) 228H CBC/BMP Laboratory Tests 12/07/20 02:03 12/07/20 07:53 Microbiology Microbiology 12/05/20 Wound Culture, Received Pending 12/05/20 Blood Culture - Preliminary, Resulted No growth after 24 hours . All specim... 12/05/20 Blood Culture - Preliminary, Resulted No growth after 24 hours . All specim.. Allergies Coded Allergies: No Known Allergies (Unverified , 03/01/20) Home Medications Scheduled Aripiprazole (Abilify) 5 Mg Tablet, 5 MG PO DAILY, (Reported) Aspirin (Aspirin EC) 81 Mg Tablet.dr, 81 MG PO DAILY, (Reported) Atorvastatin Calcium (Atorvastatin Calcium) 40 Mg Tablet, 40 MG PO DAILY, (Reported) Brimonidine Tartrate (Alphagan P) 0.1% 5ML Drops, 1 DROP OU BID, (Reported) Citalopram Hydrobromide (Citalopram HBr) 40 Mg Tablet, 40 MG PO DAILY, (Reported) Clopidogrel Bisulfate (Plavix) 75 Mg Tablet, 75 MG PO DAILY, (Reported) Ferrous Sulfate (Ferrous Sulfate) 325 Mg Tab, 325 MG PO QWEEK, (Reported) SUNDAY Finasteride (Finasteride) 5 Mg Tablet, 5 MG PO DAILY, (Reported) Gabapentin (Gabapentin) 300 Mg Capsule, 300 MG PO BID, (Reported) Insulin Human Lispro (Novolog) 100 Unit/1 Ml Vial, 1 DOSE SC ASDIRECTED, (Reported) UP TO 100 UNITS DAILY CONTINUOUS THROUGH INSULIN PUMP Multivitamins (Thera M Plus Tablet) 1 Each Tablet, 1 TAB PO DAILY, (Reported) Pantoprazole Sodium (Pantoprazole Sodium) 40 Mg Tablet.dr, 40 MG PO BID, (Reported) Prednisone (Prednisone) 1 Mg Tablet, 3 MG PO DAILY, (Reported) TAKES WITH 5MG FOR 8MG TOTAL Prednisone (Prednisone) 5 Mg Tablet, 5 MG PO DAILY, (Reported) TAKE WITH 3MG FOR 8MG TOTAL Scheduled PRN Glucagon,Human Recombinant (Glucagon Emergency Kit) 1 Mg Vial, 1 MG IM ASDIRECTED PRN for LOW BLOOD SUGAR, (Reported) Anais Jones MD Dec 07, 2020 17:20
--- NOTE | 2020-12-07 21:17 | REPVR ---
PROCEDURE INFORMATION: Exam: XR Abdomen Exam date and time: 12/07/2020 8:09 PM Age: 60 years old Clinical indication: Vomiting; Additional info: Potential ileus and/or small bowel partial TECHNIQUE: Imaging protocol: XR of the abdomen. Views: 2 Views. Upright and supine views. COMPARISON: CT ABD PELVIS W/O CONTRAST 12/06/2020 1:39 AM FINDINGS: Gastrointestinal tract: There is a mild to moderate amount of gas in the stomach. There is gas throughout the colon and no definite evidence of obstruction. Organs: There is contrast opacifying the urinary bladder from yesterday's CT examination. Vasculature: Very prominent vascular calcification is present consistent with severe atherosclerotic changes. Bones/joints: There is osteophyte formation of the lumbar spine and prominent osteoporosis. IMPRESSION: No evidence of obstruction. Electronically signed by: Chad Huizar On 12/07/2020 21:16:55 PM
--- NOTE | 2020-12-07 22:08 | REPVR ---
PROCEDURE INFORMATION: Exam: MR Right Lower Extremity Joint Without Contrast, Knee Exam date and time: 12/07/2020 9:26 PM Age: 60 years old Clinical indication: Condition or disease; Other: R/O osteomyelitis; PT has b/l knee down amputations; Prior surgery; Surgery date: 6+ months TECHNIQUE: Imaging protocol: MR of the Right lower extremity joint without contrast. Exam focused on the knee. COMPARISON: US EXTREMITY NON VASCUL LIMITED 12/06/2020 12:19 PM FINDINGS: Bones and cartilage: There is no evidence of destructive change of bone to suggest osteomyelitis. There has been amputation at the mid aspect of the tibia. Surrounding the distal tibia there is a loculation of fluid measuring 3.6 cm in transverse dimension by 2 cm in thickness. This would be suspicious for an abscess. There is bright signal intensity within the bone involving the tibia especially at the amputation site. This could be the result of early changes of osteomyelitis. However, there is no definite evidence of destructive change bone at this time there is diffuse soft tissue swelling throughout the muscle of the stump. Joint spaces: There is a small amount of joint fluid. There is a small amount of joint fluid. Periarticular cysts: There is a moderate-sized popliteal cyst. Medial meniscus: There is a horizontal tear of the posterior horn and body medial meniscus extending to the free edge. Lateral meniscus: Unremarkable. No tear. Anterior cruciate ligament: The ACL appears intact. Posterior cruciate ligament: The PCL appears intact. Medial capsule and supporting structures: Stain the MCL appears intact. Lateral capsule and supporting structures: The LCL appears intact. Extensor mechanism of knee: Unremarkable. No tear. Soft tissues: There is soft tissue swelling anterior to the lower patella and patellar tendon. IMPRESSION: 1. At the amputation site of the distal tibia is a 3.6 cm x 2 cm in thickness fluid collection that could represent early abscess. Bright signal intensity within the tibia could be reactive change of bone or early changes of osteomyelitis. No evidence of significant bone loss. 2. Severe soft tissue swelling through the muscle at the stump. Electronically signed by: Chad Huizar On 12/07/2020 22:07:44 PM
--- NOTE | 2020-12-07 22:21 | ECHO ---
ECHOCARDIOGRAM DATE OF PROCEDURE: 12/07/2020 Age: 60 Gender: Male Height: 175 cm Weight: 72 kg REFERRING PHYSICIAN: Peyman Su M.D. and Claribel Jung D.O. INDICATION: Congestive heart failure MEASUREMENTS: IVS 1.1 cm LV 3.8 cm LVPW 1.1 cm LA 3.2 cm Aorta 3.0 cm IVC 1.4 cm Mitral E wave velocity 90 Mitral A wave velocity 108 E prime septal 6.0 E prime lateral 8.9 FINDINGS: This study is of acceptable technical quality. Patient is in sinus rhythm. Left ventricle is normal size and normal systolic function. I estimate overall LVEF of 65 to 70%. No segmental wall motion abnormalities are noted. Right ventricle is also normal size and systolic function. Both atria appear normal. Aortic valve is tricuspid. There is a very prominent calcification, but mobility of cusps is grossly preserved. Mitral valve also exhibits mild degenerative abnormalities, but mobility is preserved. Tricuspid valve appears normal. Pulmonic valve also appears normal. No pericardial effusion is noted. Inferior vena cava is normal size. Aortic root is normal. Aortic arch and abdominal aorta were not seen. Doppler interrogation of aortic valve reveals no insufficiency and trivial stenosis with mean gradient 13 mmHg. There is competent mitral valve. Mild tricuspid insufficiency is seen. Calculated pulmonary artery pressure is in high 30's corresponding to mild pulmonary hypertension. Pulmonic valve is functionally competent. Mitral inflow pattern and tissue Doppler imaging of mitral annulus revealed grade 1 diastolic dysfunction. CONCLUSIONS: 1. Study is of acceptable technical quality, underlying sinus rhythm. 2. Normal LV size and systolic function, grade 1 diastolic dysfunction. 3. Prominent aortic sclerotic, but only trivial stenosis and no insufficiency. 4. Competent mitral valve. 5. Mild tricuspid insufficiency. 6. Normal central venous pressure and likely mild pulmonary hypertension.
[2020-12-08] VITALS (11 sets, daily range): BP systolic 123–238; BP diastolic 58–112
[2020-12-08] MEDS: ONDANSETRON 4MG/2ML VIAL IV PRN (04:39)
[2020-12-08 06:00] LABS: HEMATOCRIT 31.6 % (42.0-52.0); HEMOGLOBIN 10.9 g/dl (13.5-17.5); MEAN CORPUSCULAR HEMOGLOBIN 31.1 pg (27.0-33.0); MEAN CORPUSCULAR HGB CONC 34.5 g/dl (32.0-36.5); PLATELET COUNT, AUTOMATED 190 10^3/uL (150-450); RED BLOOD COUNT 3.51 10^6/uL (4.30-6.10)
[2020-12-08 06:08] LABS: INR 1.02; PROTHROMBIN TIME 13.8 SECONDS (12.7-14.5)
[2020-12-08] MEDS: PANTOPRAZOLE 40MG VIAL (C9113 PER 1) IV SCH ×2 (06:31→20:26)
[2020-12-08] MEDS: CEFTAROLINE FOSAMIL 400 MG in D5W MINI-BAG PLUS 50 ML IV SCH (06:32)
[2020-12-08 06:33] LABS: ALBUMIN 2.5 GM/DL (3.2-5.2); ALT/SGPT 20 U/L (12-78); BILIRUBIN,TOTAL 1.3 MG/DL (0.2-1.0); BLOOD UREA NITROGEN 13 MG/DL (7-18); CALCIUM LEVEL 7.8 MG/DL (8.8-10.2); CARBON DIOXIDE LEVEL 25 MEQ/L (21-32); CHLORIDE LEVEL 102 MEQ/L (98-107); GLOMERULAR FILTRATION RATE > 60.0 (>49); GLUCOSE, FASTING 226 MG/DL (70-100); POTASSIUM SERUM 3.9 MEQ/L (3.5-5.1); SODIUM LEVEL 136 MEQ/L (136-145); TOTAL PROTEIN 5.2 GM/DL (6.4-8.2)
[2020-12-08] MEDS: D5W/0.45% SODIUM CHLORIDE 1,000 ML IV SCH ×2 (07:10→19:11)
[2020-12-08] MEDS ORDERED: SENNA 8.6 MG TAB (SENOKOT) PO ONE (07:15)
[2020-12-08] MEDS: SUCRALFATE 1 GM TAB PO SCH ×3 (07:30→17:30)
[2020-12-08] MEDS: HumaLOG INSULIN (NovoLOG) PER UNIT SC SCH ×4 (07:30→21:46)
[2020-12-08] MEDS: METOCLOPRAMIDE INJ 10MG/2ML VIAL (J2765 PER 1) IV PRN (08:13)
--- NOTE | 2020-12-08 08:21 | IPNPDOC ---
Text Note Date of Service The patient was seen on 12/08/20. NOTE Full consult to follow ESRD - On HD through left forearm/arm AVF Open wound left forearm For debridement on 12/09/20 VS,[place], I+O VS, Fishbone, I+O Laboratory Tests 12/08/20 05:07 Vital Signs Date Time Temp Pulse Resp B/P (MAP) Pulse Ox O2 Delivery O2 Flow Rate FiO2 12/08/20 07:51 98.6 76 22 210/84 (126) 99 Room Air I&O- Last 24 Hours up to 6 AM 12/08/20 06:00 Intake Total 2470 ml Output Total 1525 ml Balance 945 ml Anais Jones MD Dec 08, 2020 08:21
[2020-12-08] MEDS ORDERED: amLODIPine 5 MG TAB PO ONE (08:25)
--- NOTE | 2020-12-08 08:34 | REP ---
INDICATION: VASCULAR SUPPLY. COMPARISON: None. TECHNIQUE: Exam could not be performed due to lack of IV access. 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 IMPRESSION: Aborted exam. <Electronically signed by Dex Pichardo > 12/08/20 [id number]
[2020-12-08] MEDS: FINASTERIDE 5 MG TAB PO SCH (09:00)
[2020-12-08] MEDS: CitaloPRAM (CeleXA) 20 MG TAB PO SCH (09:00)
[2020-12-08] MEDS: CLOPIDOGREL 75 MG TAB PO SCH (09:00)
[2020-12-08] MEDS: ASPIRIN 81MG ENTERIC TABLET PO SCH (09:00)
[2020-12-08] MEDS: HEPARIN SOD (PORCINE) 5000UNITS/ML 1ML VIAL/SYRINGE SC SCH ×2 (09:00→20:27)
[2020-12-08] MEDS: CADEXOMER IODINE 10GM (IODOSORB) GEL TOP SCH ×2 (09:00→20:45)
[2020-12-08] MEDS: ATORVASTATIN 20 MG TAB PO SCH (09:00)
[2020-12-08] MEDS: GABAPENTIN 300 MG CAP PO SCH ×2 (09:00→20:28)
[2020-12-08] MEDS: MULTIVITAMINS/MINERALS THERAP 1 TAB PO SCH (09:00)
[2020-12-08] MEDS: BRIMONIDINE 0.1% OPHTH SOLN 5 ML OU SCH ×2 (09:00→20:45)
[2020-12-08] MEDS: NYSTATIN 500,000 U/5 ML SUSP UDC SS SCH ×4 (09:00→20:28)
--- NOTE | 2020-12-08 09:26 | IPNPDOC ---
Date Seen The patient was seen on 12/08/20. Progress Note SUBJECTIVE: Patient is a 60-year-old male with PMHx of Diabetes Type I w/ insulin pump, Adrenal insufficiency chronically on steroids and PAD presented to the ED for intractable nausea and vomiting for the past 4 days. He was seen lying on his left side curled up. He states that he feels exactly like yesterday. When seen, his blood pressure was elevated to 220/90; at that time he has not received his blood pressure medications and looked to be in mild distress. He is aware that he is going to surgery today for an I&D of his Right stump. He hopes that this will help with how sick it feels. Still having constant nausea and vomiting and also complaining of some chills and abdominal discomfort. He still has not had a bowel movement since he has been hospitalized. Denies fever, headaches, SOB, CP, dysuria, urinary frequency. OBJECTIVE PHYSICAL EXAMINATION: VITAL SIGNS: Please see below. GENERAL: in mild distress; lying on his left side HEENT: Head normocephalic atraumatic; dry mucus membranes; white film on tongue CARDIOVASCULAR: Regular rate and rhythm; systolic murmur noted RESPIRATORY: Clear to auscultation bilaterally; no wheezing or rales or rhonchi noted ABDOMINAL: Normoactive bowel sounds; soft, nondistended; some epigastric tenderness to palpation EXTREMITIES: bilateral lower leg amputation below the knee; Right stump wound covered in wound dressing; pt is profusely draining purulence from the Right stump NEUROLOGICAL: CN II-XII grossly intact; no focal neurology deficits LABORATORY DATA, IMAGING STUDIES, MICROBIOLOGY: Please see below. CXR 12/05: "Stable chest since 08/14/2020. No acute interval process is identified." Abdomen/Pelvis CT 12/05: "1. There is calcification of the vas deferens consistent with diabetes. 2. Mild pancreatic atrophy for age. 3. Minimal hiatal hernia. 4. Nonobstructing bilateral renal calculi. 5. Bibasilar bullous change with interstitial coarsening and minimal fibro- atelectatic change 6. Otherwise negative CT abdomen/pelvis with little change from 12/09/2018. No bowel obstruction." US of Lower Extremity 12/06: "Periosteal abscess with fistulous tract extending to the skin surface." Knee MRI 12/07: "1. At the amputation site of the distal tibia is a 3.6 cm x 2 cm in thickness fluid collection that could represent early abscess. Bright signal intensity within the tibia could be reactive change of bone or early changes of osteomyelitis. No evidence of significant bone loss. 2. Severe soft tissue swelling through the muscle at the stump." Abdomen X-ray 12/07: "No evidence of obstruction." CTA Abdominal Arteries 12/07: aborted due to lack of IV access DVT prophylaxis ordered?: Yes; Heparin 5000U BID ASSESSMENT AND PLAN: Patient is a 60-year-old male with PMHx of Diabetes Type I w/ insulin, Adrenal insufficiency chronically on steroids and PAD presented to the ED for intractable nausea and vomiting for the past 4 days concerning for Hyperemesis as well as Type 2 ND vs ACD. PROBLEMS: # Hyperemesis - intractable nausea and vomiting - possibly due to him stopping Cannabis 1 week ago vs gastroenteritis - Clear liquid diet - IV Zofran q6hrs and Reglan q8hrs - IV pantoprazole 40mg q12h and PO carafate to protect stomach lining - continue with hot showers - constipation: one time dose of Senna # Purulent Discharge/Right stump wound - Vascular surgery consulted; we appreciate their input in the care of this patient - Vascular surgery will take him to the OR today for right below-knee abscess, along with the possible resection of the infected bone, followed by aggressive wound care - blood cultures and wound cultures pending - c/w IV ceftaroline 400mg q12h as it covers MRSA, gram + and - - Dr. Ledesma consulted; we appreciate his input in the care of this patient - wound care: wound should be cleansed with Vashe wound cleanser for 10 minutes, then topical Iodosorb. Cadexomer iodine should be applied to the wound covered with a Hydrofera Blue Ready foam. Dressing is to be changed every other day. # Type 2 ND - patient currently not complaining of chest pain/palpitations - Troponins: 0.43 -> 0.47 -> 0.34 -> 0.22 - Placed on 48 hr telemetry - EKG ordered: no acute ST elevation/depressions noted - pending echocardiogram # Diabetes Type I - has an insulin pump; patient will discontinue his insulin pump - hypoglycemia protocol in place as he had a sugar level of 55 - fingerstick checks every 6 hours due to prior frequent hypoglycemic events - HbA1c was 7.8 - will start patient on insulin sliding scale while inpatient as patient is having hypoglycemia events while on his insulin pump - diet: consistent carb diet #Adrenal Insufficiency - he is chronically on PO prednisone 8mg daily; will continue # Peripheral Artery Disease - possibly associated with diabetes - s/p b/l amputations from knee down # DVT prophylaxis - Heparin 5000U BID DISPOSITION: pending surgery and clinical improvement VS, I&O, 24H, Fishbone Vital Signs/I&O Vital Signs Date Time Temp Pulse Resp B/P (MAP) Pulse Ox O2 Delivery O2 Flow Rate FiO2 12/08/20 08:52 89 220/90 12/08/20 07:51 98.6 22 99 Room Air I&O- Last 24 Hours up to 6 AM 12/08/20 06:00 Intake Total 2470 ml Output Total 1525 ml Balance 945 ml Laboratory Data 24H LABS Laboratory Tests 2 12/07/20 12:11: Bedside Glucose (Misc Panel) 361H 12/07/20 16:43: Bedside Glucose (Misc Panel) 228H 12/07/20 21:58: Bedside Glucose (Misc Panel) 195H 12/08/20 05:07: Nucleated Red Blood Cells % (auto) 0.0, Prothrombin Time 13.8, Prothromb Time International Ratio 1.02, Activated Partial Thromboplast Time 41.0H, Anion Gap 9, Glomerular Filtration Rate > 60.0, Calcium Level 7.8L, Total Bilirubin 1.3H, Aspartate Amino Transf (AST/SGOT) 18, Alanine Aminotransferase (ALT/SGPT) 20, Alkaline Phosphatase 68, Total Protein 5.2#L, Albumin 2.5#L, Albumin/Globulin Ratio 0.9 CBC/BMP Laboratory Tests 12/08/20 05:07 Microbiology Microbiology 12/05/20 Wound Culture - Final, Complete Staphylococcus Sp Coag Neg 12/05/20 Blood Culture - Preliminary, Resulted No Growth after 48 hours. All Specime... 12/05/20 Blood Culture - Preliminary, Resulted No Growth after 48 hours. All Specime... GME ATTESTATION GME ATTESTATION My faculty preceptor for this patient encounter was physically present during the encounter and was fully available. All aspects of the patient interview, examination, medical decision making process, and medical care plan development were reviewed and approved by the faculty preceptor. The faculty preceptor is aware and concurs with the plan as stated in the body of this note and will attest to such by his/her cosignature. Claribel Lamb DO Dec 08, 2020 09:26
[2020-12-08] MEDS ORDERED: METOPROLOL TART 25 MG TABLET PO ONE (09:50)
[2020-12-08] MEDS ORDERED: **hydrALAZINE HCL** 25 MG TAB PO ONE (10:05)
[2020-12-08] MEDS ORDERED: hydrALAZINE 20MG/ML 1ML VIAL (J0360 PER 20MG) IV PRN (10:45)
--- NOTE | 2020-12-08 11:35 | REP ---
INDICATION: abdominal pain, persistent nausea vomiting COMPARISON: Comparison CT study of the abdomen and pelvis December 06, 2020 TECHNIQUE: Helical scanning is acquired and 3 mm axial images were reformatted. Coronal and sagittal MPR images were generated and reviewed. FINDINGS: Preliminary digital public address system mechanic radiograph demonstrates an unremarkable bowel gas pattern. There is evidence of COPD with predominantly peripheral pattern of interstitial fibrosis in the lung bases unchanged. Vascular calcification is observed. Normal adrenal glands are seen. The liver and the spleen are normal in size homogeneous in texture. No abnormality is noted in the gallbladder. No pancreatic abnormality is seen. Bilateral intrarenal nephrolithiasis is noted without hydronephrosis. Urinary bladder is intact. Prostate and seminal vesicles are unremarkable. Vas deferens calcification is again noted. A normal appendix is seen in the right lower quadrant. Small and large bowel loops are unremarkable. There is no evidence of free intraperitoneal air or fluid collection. IMPRESSION: Bilateral intrarenal nephrolithiasis without hydronephrosis.. Vascular calcification. Normal appendix. No acute abdominal or pelvic abnormality. <Electronically signed by Dex Pichardo > 12/08/20 [id number]
[2020-12-08] MEDS ORDERED: LIDOCAINE 1% MDV 20ML VIAL As Ordered ONE (14:04)
[2020-12-08] MEDS ORDERED: ISOVUE-300 61% 50ML VIAL As Ordered ONE (15:51)
[2020-12-08] MEDS ORDERED: LIDOCAINE 2% 100MG/5ML SDV (FOR ANES.) As Ordered ONE (16:26)
[2020-12-08] MEDS ORDERED: propofoL 200 MG/20 ML VIAL As Ordered ONE (16:26)
[2020-12-08] MEDS ORDERED: fentaNYL 100 MCG/2 ML INJECTION (J3010) As Ordered ONE ×2 (16:32→17:48)
[2020-12-08] MEDS ORDERED: MIDAZOLAM INJ 2MG/2ML VIAL (J2250 PER 1MG) As Ordered ONE (16:32)
[2020-12-08] MEDS ORDERED: VANCOMYCIN 1000MG/20ML VIAL As Ordered ONE (16:32)
[2020-12-08] MEDS ORDERED: ePHEDrine SULFATE 25 MG/5 ML(5MG/ML) SYRINGE As Ordered ONE (17:05)
--- NOTE | 2020-12-08 17:06 | REP ---
PROCEDURE NAME: PICC LINE INSERTION W/SITERITE CLINICAL INFORMATION: HAS NO IV ACCESS; VERY ELEVATED BP; OSTEOMYELITIS. COMPARISON: None. PROCEDURE DESCRIPTION: The procedure was performed by ANIBAL Pierce, under the direct supervision of Dr. Lee. The risks and benefits of the procedure were explained to the patient and an informed consent was obtained both verbally and written. Directly prior to the start of the procedure a formal time-out was completed in the procedure room. The left medial brachial vein was localized using ultrasound guidance. The skin was prepped and draped in sterile fashion. One mL of 1% lidocaine 10 mg/mL was used as a local anesthetic. Using ultrasound guidance the left medial brachial vein was cannulated, and a 0.018 guidewire was inserted and advanced to the level of SVC using fluoroscopic guidance. The needle was removed and a 5.5 Guamanian dilator and peel-away sheath was inserted over the guidewire. A 5.5 Guamanian dual lumen catheter was cut to a length of 40 cm. While trying to insert the PICC line it was felt that the stenosis or vascular spasm was taking place. A total of 16 mL of a 50/50 solution of saline and Isovue-300 was utilized to evaluate for stenosis. No stenosis was visualized so a Advantage Glidewire was used with success. The dilator was removed and the catheter was inserted over the guidewire with the tip ending at the level of the SVC. The peel-away sheath was removed and the catheter was flushed with heparinized saline as per hospital protocol. The catheter was affixed to the skin and a sterile dressing was applied. The patient tolerated the procedure well and there were no immediate complications. CONCLUSION: PICC line insertion into the left medial brachial vein. 1.1 minutes of fluoroscopy time was utilized for this procedure. Some fluoroscopic images are performed with last image hold technology. These images require no additional radiation. <Electronically signed by Aline Storm > 12/08/20 1642 <Electronically signed by Kevin Lee > 12/08/20 1702
[2020-12-08] MEDS ORDERED: HumaLOG INSULIN (NovoLOG) PER UNIT As Ordered ONE (17:26)
[2020-12-08] MEDS: predniSONE 1 MG TAB PO SCH (17:26)
[2020-12-08] MEDS ORDERED: ONDANSETRON 4MG/2ML VIAL As Ordered ONE (18:10)
[2020-12-08] MEDS ORDERED: SUGAMMADEX SODIUM 500 MG/5 ML VIAL (BRIDION) As Ordered ONE (18:10)
[2020-12-08] MEDS ORDERED: ACETAMINOPHEN 1000MG 100ML IV BTL (OFIRMEV) (J0131 PER 10MG) As Ordered ONE (18:24)
[2020-12-08] MEDS ORDERED: ONDANSETRON 4MG/2ML VIAL IV PRN (18:35)
[2020-12-08] MEDS ORDERED: LR 1,000 ML IV SCH (18:35)
[2020-12-08] MEDS ORDERED: oxyCODONE 5MG TAB PO PRN (18:35)
--- NOTE | 2020-12-08 18:37 | ROOPDOC ---
[facility] Report Of Operation Report of Operation DATE OF PROCEDURE: 12/08/20 PREPROCEDURE DIAGNOSES: Abscess and osteomyelitis of the right below-knee amputated stump. POSTPROCEDURE DIAGNOSES: Abscess and osteomyelitis of the right below-knee amputated stump. PROCEDURE PERFORMED: 1. Incision and drainage of abscess right knee. 2. Revision of right below-knee amputation(with resection of a piece of the tibia) SURGEON: Anais Jones MD OTR TANKER TRUCK DRIVER: jan Oliver tech ANESTHESIA: General anesthesia, Dr Mccann. ESTIMATED BLOOD LOSS: Approximately 50 mL. COMPLICATIONS: None. REMARKS: FINDINGS: Small amount of pus, and the abscess cavity, with a cavity tracking to the tibial bone. Extensive soft tissue edema and induration. Viable muscles. SPECIMENS REMOVED: Resection biopsy, the distal segment of the tibial stump PROCEDURE NOTE: The patient is a 60-year-old gentleman, with history of diabetes mellitus, peripheral arterial disease, who had bilateral below-knee amputations. He developed a draining sinus, from the right below-knee amputated stump, with history of recurrent cellulitis, since his initial surgery in March07/21/2019. He was recently hospitalized, with a 3-week history of significant pain, swelling, redness and pus draining from the right below-knee amputated stump. He was hospitalized with hyperemesis, nausea, along with with a right below-knee stump abscess. Further investigation and imaging, revealed evidence of abscess, with osteomyelitis of the distal segment of the tibial stump. Wound cultures from 12/05/2020 revealed coag negative staph, resistant to oxac illin and sensitive to vancomycin. Blood cultures have been negative. Hence the patient is taken up for the above-mentioned procedure. Informed consent was obtained from the patient, for the procedure, after explaining the risk benefits and complications of the procedure, which include but are not limited to bleeding, recurrent infection, wound complications, need for further procedures, including additional debridements, revisions, possible need for future revision to right above-knee amputation etc., in addition to cardiorespiratory complications secondary to his medical comorbidities. Alternatives to the procedure including nonoperative treatment and its complications were explained. The patient understood and agreed for the procedure. DESCRIPTION OF PROCEDURE: The patient was identified correctly, and placed on the operating room table. General anesthesia with endotracheal tube was administered. The right knee and BKA were cleaned and draped in a sterile fashion. He received vancomycin intravenously preoperatively. A timeout was performed. An incision was made, along the line of the sinus, over the previous operative s car, initially for about 5 cm in length, and extended later on, to facilitate exposure and resection of the bone. The incision was deepened through skin subcutaneous tissue and the fascia. Immediately after incising the sinus, there was a small amount of pus, after which there was no significant amount of pus. However there was extensive soft tissue swelling and induration. The distal aspect of the tibia was dissected from the adjacent tissue, for about 3cm all around the bone, with blunt and sharp dissections-and the periosteum was elevated. Deep tissue cultures were sent-for Gram stain, aerobic and anaerobic cultures. A 2 cm segment of the distal aspect of the tibial stump was resected sharply, with an electric saw, and was sent for pathology and cultures. Hemostasis was achieved and confirmed. The incision and wound were irrigated with normal saline. The sharp resected edges of the tibial stump were smoothened, with a bone rongeur. The deep fascia and soft tissue around the tibial stump were approximated with 2-0 Vicryl suture. The skin on the lateral aspects of the incision was approximated with a 3-0 nylon vertical mattress sutures. The skin and subcutaneous tissue at the center of the incision/wound were left open, and packed with iodoform packing. All counts were correct Dry gauze followed by ABD pads, Kerlix wrap and Mac wrap were placed to dress the wound. The patient tolerated the procedure well and was hemodynamically stable. He was extubated and was transferred to the recovery room in a stable condition. The procedure and findings were conveyed to his mother Zoila Girard and [phone] Anais Jones MD Dec 08, 2020 18:37
[2020-12-08] MEDS: fentaNYL 100 MCG/2 ML INJECTION (J3010) IV PRN ×3 (18:52→19:05)
[2020-12-08] MEDS: CEFTAROLINE FOSAMIL 600 MG in D5W MINI-BAG PLUS 50 ML IV SCH (20:29)
[2020-12-09] VITALS: BP 130/60
[2020-12-09] MEDS: ACETAMINOPH W/CODEINE #3 TAB UD PO PRN ×3 (00:11→21:42)
[2020-12-09] MEDS: NS 1,000 ML IV SCH ×2 (03:00→09:35)
[2020-12-09 04:00] VITALS: BP 196/92
[2020-12-09] MEDS: D5W/0.45% SODIUM CHLORIDE 1,000 ML IV SCH (04:59)
[2020-12-09 05:00] VITALS: BP 152/70
[2020-12-09 05:04] LABS: HEMATOCRIT 30.8 % (42.0-52.0); HEMOGLOBIN 10.9 g/dl (13.5-17.5); MEAN CORPUSCULAR HEMOGLOBIN 31.3 pg (27.0-33.0); MEAN CORPUSCULAR HGB CONC 35.4 g/dl (32.0-36.5); MEAN CORPUSCULAR VOLUME 88.5 fl (80.0-96.0); PLATELET COUNT, AUTOMATED 196 10^3/uL (150-450); RED BLOOD COUNT 3.48 10^6/uL (4.30-6.10); WHITE BLOOD COUNT 9.3 10^3/uL (4.0-10.0)
[2020-12-09 05:43] LABS: BLOOD UREA NITROGEN 15 MG/DL (7-18); CALCIUM LEVEL 7.7 MG/DL (8.8-10.2); CARBON DIOXIDE LEVEL 25 MEQ/L (21-32); CHLORIDE LEVEL 95 MEQ/L (98-107); CREATININE FOR GFR 1.18 MG/DL (0.70-1.30); GLOMERULAR FILTRATION RATE > 60.0 (>49); GLUCOSE, FASTING 418 MG/DL (70-100); POTASSIUM SERUM 4.7 MEQ/L (3.5-5.1); SODIUM LEVEL 130 MEQ/L (136-145)
[2020-12-09] MEDS: CEFTAROLINE FOSAMIL 600 MG in D5W MINI-BAG PLUS 50 ML IV SCH (06:02)
[2020-12-09] MEDS: PANTOPRAZOLE 40MG VIAL (C9113 PER 1) IV SCH ×2 (06:02→17:45)
[2020-12-09] MEDS: HumaLOG INSULIN (NovoLOG) PER UNIT SC SCH ×4 (06:04→21:48)
[2020-12-09] MEDS ORDERED: ERYTHROMYCIN LACTOBIONATE INJ 500 MG in NS 250 ML IV SCH (07:00)
[2020-12-09 07:28] VITALS: BP 142/72
[2020-12-09] MEDS: SUCRALFATE 1 GM TAB PO SCH ×3 (07:55→17:46)
[2020-12-09] MEDS: ONDANSETRON 4MG/2ML VIAL IV PRN (07:55)
[2020-12-09] MEDS ORDERED: VANCOMYCIN HCL 1,000 MG, VIAL MATE ADAPTER 1 EACH in NS 250 ML IV ONE (08:00)
[2020-12-09] MEDS ORDERED: SENNA 8.6 MG TAB (SENOKOT) PO PRN (08:50)
[2020-12-09] MEDS ORDERED: PIPERACILLIN/TAZOBACTAM SOD 3.375 GM in D5W MINI-BAG PLUS 50 ML IV SCH (09:00)
[2020-12-09] MEDS: BISACODYL 10 MG SUPP PR SCH (09:00)
[2020-12-09] MEDS ORDERED: HumaLOG INSULIN (NovoLOG) PER UNIT SC ONE (09:00)
[2020-12-09] MEDS: HEPARIN SOD (PORCINE) 5000UNITS/ML 1ML VIAL/SYRINGE SC SCH ×2 (09:36→21:47)
[2020-12-09] MEDS: GABAPENTIN 300 MG CAP PO SCH ×2 (09:38→21:41)
[2020-12-09] MEDS: MULTIVITAMINS/MINERALS THERAP 1 TAB PO SCH (09:38)
[2020-12-09] MEDS: predniSONE 1 MG TAB PO SCH (09:38)
[2020-12-09] MEDS: CLOPIDOGREL 75 MG TAB PO SCH (09:38)
[2020-12-09] MEDS: NYSTATIN 500,000 U/5 ML SUSP UDC SS SCH ×4 (09:38→21:43)
[2020-12-09] MEDS: CitaloPRAM (CeleXA) 20 MG TAB PO SCH (09:39)
[2020-12-09] MEDS: ATORVASTATIN 20 MG TAB PO SCH (09:39)
[2020-12-09] MEDS: DOCUSATE SODIUM 100MG CAPSULE PO SCH (09:39)
[2020-12-09] MEDS: FINASTERIDE 5 MG TAB PO SCH (09:39)
[2020-12-09] MEDS: ASPIRIN 81MG ENTERIC TABLET PO SCH (09:39)
[2020-12-09] MEDS: BRIMONIDINE 0.1% OPHTH SOLN 5 ML OU SCH ×2 (09:40→21:00)
[2020-12-09] MEDS: CADEXOMER IODINE 10GM (IODOSORB) GEL TOP SCH ×2 (09:40→21:00)
[2020-12-09 11:17] VITALS: BP 142/61
[2020-12-09] MEDS: LEVEMIR (INSULIN DETEMIR) 1 UNITS/0.01ML SC SCH ×2 (12:05→21:48)
--- NOTE | 2020-12-09 12:22 | IPNPDOC ---
Date Seen The patient was seen on 12/09/20. Progress Note SUBJECTIVE: Patient is a 60-year-old male with PMHx of Diabetes Type I w/ insulin pump, Adrenal insufficiency chronically on steroids and PAD presented to the ED for intractable nausea and vomiting for the past 4 days. He was seen lying on his left side. He states that after the surgery he started to feel better and was "okay overnight". However, this morning, he started to have nausea and vomiting again. I asked him about kidney stones as that was a finding on the CT ab/pel and he states that this is a chronic issue. I also informed him of what happened during surgery; drainage of his abscess as well as taking 2 inches off this tibia. Still complaining of abdominal pain. Denies fever, headaches, SOB, CP, dysuria, urinary frequency. OBJECTIVE PHYSICAL EXAMINATION: VITAL SIGNS: Please see below. GENERAL: In mild distress; lying on his left side HEENT: Head normocephalic atraumatic; dry mucous membranes; white film on tongue CARDIOVASCULAR: Regular Rate and rhythm; systolic murmur noted RESPIRATORY: Clear to auscultation bilaterally; no wheezing or rales or rhonchi noted ABDOMINAL: NABS; soft, nondistended, some epigastric tenderness to palpation as well as right lower quadrant tenderness to palpation EXTREMITIES: Bilateral lower leg amputation below the knee; right stump wound covered in wound dressing s/p I&D as well as shaving to 2 cm off tibia NEUROLOGICAL: Cranial nerves II through XII grossly intact; no focal neurological deficit LABORATORY DATA, IMAGING STUDIES, MICROBIOLOGY: Please see below. CXR 12/05: "Stable chest since 08/14/2020. No acute interval process is identified." Abdomen/Pelvis CT 12/05: "1. There is calcification of the vas deferens consistent with diabetes. 2. Mild pancreatic atrophy for age. 3. Minimal hiatal hernia. 4. Nonobstructing bilateral renal calculi. 5. Bibasilar bullous change with interstitial coarsening and minimal fibro- atelectatic change 6. Otherwise negative CT abdomen/pelvis with little change from 12/09/2018. No bowel obstruction." US of Lower Extremity 12/06: "Periosteal abscess with fistulous tract extending to the skin surface." Knee MRI 12/07: "1. At the amputation site of the distal tibia is a 3.6 cm x 2 cm in thickness fluid collection that could represent early abscess. Bright signal intensity within the tibia could be reactive change of bone or early changes of osteomyelitis. No evidence of significant bone loss. 2. Severe soft tissue swelling through the muscle at the stump." Abdomen X-ray 12/07: "No evidence of obstruction." CTA Abdominal Arteries 12/07: aborted due to lack of IV access Echocardiogram 12/07: "1. Study is of acceptable technical quality, underlying sinus rhythm. 2. Normal LV size and systolic function, grade 1 diastolic dysfunction. 3. Prominent aortic sclerotic, but only trivial stenosis and no insufficiency. 4. Competent mitral valve. 5. Mild tricuspid insufficiency. 6. Normal central venous pressure and likely mild pulmonary hypertension." CT Abdomen/Pelvis 12/08: "Bilateral intrarenal nephrolithiasis without hydronephrosis. Vascular calcification. Normal appendix. No acute abdominal or pelvic abnormality." DVT prophylaxis ordered?: Yes; Heparin 5000U BID ASSESSMENT AND PLAN: Patient is a 60-year-old male with PMHx of Diabetes Type I w/ insulin, Adrenal insufficiency chronically on steroids and PAD presented to the ED for intractable nausea and vomiting for the past 4 days concerning for Hyperemesis as well as Type 2 CA vs ACD. PROBLEMS: # Hyperemesis - intractable nausea and vomiting - possibly due to him stopping Cannabis 1 week ago vs gastroenteritis - Clear liquid diet - IV Zofran q6hrs and Reglan q8hrs - IV pantoprazole 40mg q12h and PO carafate to protect stomach lining - continue with hot showers - constipation: senna, colace, Dulcolax # Right stump wound - Vascular surgery consulted; we appreciate their input in the care of this patient - s/p surgery: Abscess drainage, 2 cm segment of the distal aspect of the tibial stump was resected sharply - intraoperative cx: pending bone pathology, gram strain, anaerobic cx, wound cx - 12/05 wound cx: Staphylococcus coagulase - - start IV Vanco and Cepefime - Dr. Ledesma consulted; we appreciate his input in the care of this patient - wound care: wound should be cleansed with Vashe wound cleanser for 10 minutes, then topical Iodosorb. Cadexomer iodine should be applied to the wound covered with a Hydrofera Blue Ready foam. Dressing is to be changed every other day. # Osteomyelitis - s/p surgery: Abscess drainage, 2 cm segment of the distal aspect of the tibial stump was resected sharply - intraoperative cx: pending bone pathology, gram strain, anaerobic cx, wound cx - start IV Vanco and Cepefime # Type 2 CA - patient currently not complaining of chest pain/palpitations - Troponins: 0.43 -> 0.47 -> 0.34 -> 0.22 - Placed on 48 hr telemetry - EKG ordered: no acute ST elevation/depressions noted - Echocardiogram: unremarkable; tricuspid insufficiency # Diabetes Type I with HbA1c 7.8 - has an insulin pump; patient will discontinue his insulin pump - hypoglycemia protocol in place as he had a sugar level of 55; fingerstick checks every 6 hours due to prior frequent hypoglycemic events - c/w insulin sliding scale while inpatient - start 6 units Levemir BID - diet: consistent carb diet # Hypertension - IV hydralazine if SBP >160 - continue to monitor BP in vitals # Adrenal Insufficiency - he is chronically on PO prednisone 8mg daily; will continue # Peripheral Artery Disease - possibly associated with diabetes - s/p b/l amputations from knee down # DVT prophylaxis - Heparin 5000U BID DISPOSITION: pending clinical improvement and cultures . VS, I&O, 24H, Fishbone Vital Signs/I&O Vital Signs Date Time Temp Pulse Resp B/P (MAP) Pulse Ox O2 Delivery O2 Flow Rate FiO2 12/09/20 07:28 98.7 83 18 142/72 (95) 97 Room Air 12/08/20 19:30 2.0 I&O- Last 24 Hours up to 6 AM 12/09/20 06:00 Intake Total 3130 ml Output Total 2650 ml Balance 480 ml Laboratory Data 24H LABS Laboratory Tests 2 12/08/20 12:20: Bedside Glucose (Misc Panel) 297H 12/08/20 16:59: Bedside Glucose (Misc Panel) 289H 12/08/20 18:35: Bedside Glucose (Misc Panel) 298H 12/08/20 20:24: Bedside Glucose (Misc Panel) 259H 12/09/20 04:56: Nucleated Red Blood Cells % (auto) 0.0, Anion Gap 10, Glomerular Filtration Rate > 60.0, Calcium Level 7.7L 12/09/20 07:46: Bedside Glucose (Misc Panel) 433H 12/09/20 09:37: Bedside Glucose (Misc Panel) 366H CBC/BMP Laboratory Tests 12/09/20 04:56 Microbiology Microbiology 12/08/20 Wound Culture, Received Pending 12/08/20 Anaerobic Culture, Received Pending 12/08/20 Anaerobic Culture, Received Pending 12/08/20 Gram Stain - Final, Resulted 12/08/20 Abscess Culture, Resulted Pending 12/05/20 Wound Culture - Final, Complete Staphylococcus Sp Coag Neg 12/05/20 Blood Culture - Preliminary, Resulted No Growth after 72 hours. All specime... 12/05/20 Blood Culture - Preliminary, Resulted No Growth after 72 hours. All specime... GME ATTESTATION GME ATTESTATION My faculty preceptor for this patient encounter was physically present during the encounter and was fully available. All aspects of the patient interview, examination, medical decision making process, and medical care plan development were reviewed and approved by the faculty preceptor. The faculty preceptor is aware and concurs with the plan as stated in the body of this note and will attest to such by his/her cosignature. Claribel Lamb DO Dec 09, 2020 12:22
[2020-12-09] MEDS: VANCOMYCIN HCL 750 MG, VIAL MATE ADAPTER 1 EACH in NS 250 ML IV SCH (13:02)
[2020-12-09 15:10] VITALS: BP 140/63
[2020-12-09] MEDS: CEFEPIME HCL 1 GM in D5W MINI-BAG PLUS 50 ML IV SCH ×2 (15:52→23:51)
--- NOTE | 2020-12-09 16:39 | IPNPDOC ---
Text Note Date of Service The patient was seen on 12/09/20 at 1.30 pm. NOTE Postop day 1-status post revision of right below-knee amputated stump. The patient is doing well. He is comfortable. The pain in the right BKA a has improved. His appetite has improved. He is afebrile, with stable vital signs. Pain level is 4 out of 10. On examination: Not in acute distress Right BKA dressing is clean, dry and intact. Labs reviewed: His white count is 9.3 thousand and hemoglobin is stable at 10.9 g%. However his blood sugar is elevated at 418 mg percent. Intraoperative cultures and pathology are pending. Input by output is 3850/1550 mL. Medications reviewed: Ceftaroline discontinued and intravenous vancomycin and Zosyn started by the hospitalist service. Impression: Patient doing well Dressing change, in the next 24 to 48 hours. Intravenous antibiotics, as per culture results. Continue blood sugar control and supportive care. VS,Fishbone, I+O VS, Fishbone, I+O Laboratory Tests 12/09/20 04:56 Vital Signs Date Time Temp Pulse Resp B/P (MAP) Pulse Ox O2 Delivery O2 Flow Rate FiO2 12/09/20 15:10 99.0 79 18 140/63 (88) 97 Room Air 12/08/20 19:30 2.0 I&O- Last 24 Hours up to 6 AM 12/09/20 06:00 Intake Total 3130 ml Output Total 2650 ml Balance 480 ml Anais Jones MD Dec 09, 2020 16:39
--- NOTE | 2020-12-09 22:06 | ECGEPIP ---
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
[2020-12-10] VITALS: BP 138/63
[2020-12-10] MEDS: VANCOMYCIN HCL 750 MG, VIAL MATE ADAPTER 1 EACH in NS 250 ML IV SCH ×2 (02:54→14:10)
[2020-12-10 04:00] VITALS: BP 143/67
[2020-12-10] MEDS: ACETAMINOPH W/CODEINE #3 TAB UD PO PRN ×3 (04:41→21:31)
[2020-12-10] MEDS: PANTOPRAZOLE 40MG VIAL (C9113 PER 1) IV SCH ×2 (06:20→17:19)
[2020-12-10] MEDS: CEFEPIME HCL 1 GM in D5W MINI-BAG PLUS 50 ML IV SCH ×3 (06:20→23:04)
[2020-12-10 06:49] LABS: HEMATOCRIT 28.1 % (42.0-52.0); MEAN CORPUSCULAR HEMOGLOBIN 31.7 pg (27.0-33.0); MEAN CORPUSCULAR HGB CONC 35.6 g/dl (32.0-36.5); MEAN CORPUSCULAR VOLUME 89.2 fl (80.0-96.0); PLATELET COUNT, AUTOMATED 187 10^3/uL (150-450); RED BLOOD COUNT 3.15 10^6/uL (4.30-6.10); WHITE BLOOD COUNT 12.5 10^3/uL (4.0-10.0)
[2020-12-10 07:15] LABS: BLOOD UREA NITROGEN 12 MG/DL (7-18); CALCIUM LEVEL 7.7 MG/DL (8.8-10.2); CARBON DIOXIDE LEVEL 29 MEQ/L (21-32); CHLORIDE LEVEL 105 MEQ/L (98-107); GLOMERULAR FILTRATION RATE > 60.0 (>49); GLUCOSE, FASTING 197 MG/DL (70-100); POTASSIUM SERUM 3.8 MEQ/L (3.5-5.1); SODIUM LEVEL 139 MEQ/L (136-145)
[2020-12-10] MEDS: SUCRALFATE 1 GM TAB PO SCH ×3 (07:30→17:19)
[2020-12-10] MEDS: HumaLOG INSULIN (NovoLOG) PER UNIT SC SCH ×4 (07:30→20:52)
[2020-12-10 08:00] VITALS: BP 168/82
[2020-12-10] MEDS: PROMETHAZINE INJ 25 MG/ML VIAL (J2550) IV SCH (08:48)
[2020-12-10] MEDS: HEPARIN SOD (PORCINE) 5000UNITS/ML 1ML VIAL/SYRINGE SC SCH ×2 (08:49→20:45)
[2020-12-10] MEDS: NYSTATIN 500,000 U/5 ML SUSP UDC SS SCH ×4 (08:49→20:45)
[2020-12-10] MEDS: LEVEMIR (INSULIN DETEMIR) 1 UNITS/0.01ML SC SCH ×2 (08:49→20:52)
[2020-12-10] MEDS: CitaloPRAM (CeleXA) 20 MG TAB PO SCH (08:49)
[2020-12-10] MEDS: ASPIRIN 81MG ENTERIC TABLET PO SCH (08:49)
[2020-12-10] MEDS: predniSONE 1 MG TAB PO SCH (08:50)
[2020-12-10] MEDS: MULTIVITAMINS/MINERALS THERAP 1 TAB PO SCH (08:50)
[2020-12-10] MEDS: FINASTERIDE 5 MG TAB PO SCH (08:50)
[2020-12-10] MEDS: CLOPIDOGREL 75 MG TAB PO SCH (08:50)
[2020-12-10] MEDS: GABAPENTIN 300 MG CAP PO SCH ×2 (08:50→20:45)
[2020-12-10] MEDS: DOCUSATE SODIUM 100MG CAPSULE PO SCH (08:51)
[2020-12-10] MEDS: BISACODYL 10 MG SUPP PR SCH ×2 (08:51→08:55)
[2020-12-10] MEDS: ATORVASTATIN 20 MG TAB PO SCH (08:51)
[2020-12-10] MEDS: BRIMONIDINE 0.1% OPHTH SOLN 5 ML OU SCH ×2 (08:53→20:46)
[2020-12-10] MEDS: amLODIPine 5 MG TAB PO SCH (09:00)
--- NOTE | 2020-12-10 10:16 | IPNPDOC ---
Date Seen The patient was seen on 12/10/20. Progress Note SUBJECTIVE: Patient is a 60-year-old male with PMHx of Diabetes Type I w/ insulin pump, Adrenal insufficiency chronically on steroids and PAD presented to the ED for intractable nausea and vomiting. He was seen lying on his back comfortably in no distress. He states that he feels like a new man this morning. Not complaining of any nausea or vomiting or abdominal pain this morning. He is excited to eat breakfast. REVIEW OF SYSTEMS: Constitutional: denies fever, chills, night sweats HEENT: denies headaches Lungs: denies cough, wheezing, shortness of breath Heart: denies chest pain, palpations GI: denies n/v/d, abdominal pain : denies burning with urination OBJECTIVE PHYSICAL EXAMINATION: VITAL SIGNS: Please see below. 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 CXR 12/05: "Stable chest since 08/14/2020. No acute interval process is identified." Abdomen/Pelvis CT 12/05: "1. There is calcification of the vas deferens consistent with diabetes. 2. Mild pancreatic atrophy for age. 3. Minimal hiatal hernia. 4. Nonobstructing bilateral renal calculi. 5. Bibasilar bullous change with interstitial coarsening and minimal fibro- atelectatic change 6. Otherwise negative CT abdomen/pelvis with little change from 12/09/2018. No bowel obstruction." US of Lower Extremity 12/06: "Periosteal abscess with fistulous tract extending to the skin surface." Knee MRI 12/07: "1. At the amputation site of the distal tibia is a 3.6 cm x 2 cm in thickness fluid collection that could represent early abscess. Bright signal intensity within the tibia could be reactive change of bone or early changes of osteomyelitis. No evidence of significant bone loss. 2. Severe soft tissue swelling through the muscle at the stump." Abdomen X-ray 12/07: "No evidence of obstruction." CTA Abdominal Arteries 12/07: aborted due to lack of IV access Echocardiogram 12/07: "1. Study is of acceptable technical quality, underlying sinus rhythm. 2. Normal LV size and systolic function, grade 1 diastolic dysfunction. 3. Prominent aortic sclerotic, but only trivial stenosis and no insufficiency. 4. Competent mitral valve. 5. Mild tricuspid insufficiency. 6. Normal central venous pressure and likely mild pulmonary hypertension." CT Abdomen/Pelvis 12/08: "Bilateral intrarenal nephrolithiasis without hydronephrosis. Vascular calcification. Normal appendix. No acute abdominal or pelvic abnormality." DVT prophylaxis ordered?: Yes; Heparin 5000U BID ASSESSMENT AND PLAN: Patient is a 60-year-old male with PMHx of Diabetes Type I w/ insulin, Adrenal insufficiency chronically on steroids and PAD presented to the ED for intractable nausea and vomiting for the past 4 days concerning for Hyperemesis as well as Type 2 CO vs ACD. PROBLEMS: # Hyperemesis - intractable nausea and vomiting - possibly due to him stopping Cannabis 1 week ago vs gastroenteritis - IV Zofran prn and Reglan prn - add promethazine daily - IV pantoprazole 40mg q12h and PO carafate to protect stomach lining - continue with hot showers - constipation: Senna, Colace, Dulcolax # Right stump wound - Vascular surgery consulted; we appreciate their input in the care of this patient - s/p surgery: Abscess drainage, 2 cm segment of the distal aspect of the tibial stump was resected sharply - intraoperative cx: pending bone pathology, gram strain, anaerobic cx, wound cx - 12/05 wound cx: Staphylococcus coagulase - - c/w IV Vanco and Cepefime - Dr. Ledesma consulted; we appreciate his input in the care of this patient - wound care: wound should be cleansed with Vashe wound cleanser for 10 minutes, then topical Iodosorb. Cadexomer iodine should be applied to the wound covered with a Hydrofera Blue Ready foam. Dressing is to be changed every other day. # Osteomyelitis - s/p surgery: Abscess drainage, 2 cm segment of the distal aspect of the tibial stump was resected sharply - intraoperative cx: pending bone pathology, gram strain, anaerobic cx, wound cx - c/w IV Vanco and Cepefime # Type 2 CO - patient currently not complaining of chest pain/palpitations - Troponins: 0.43 -> 0.47 -> 0.34 -> 0.22 - Placed on 48 hr telemetry - EKG ordered: no acute ST elevation/depressions noted - Echocardiogram: unremarkable; tricuspid insufficiency # Diabetes Type I with HbA1c 7.8 - has an insulin pump; patient will discontinue his insulin pump - c/w insulin sliding scale. hypoglycemia protocol. consistent carb diet. fingerstick checks every 6 hours due to prior frequent hypoglycemic events - start 6 units Levemir BID - diet: consistent carb diet # Hypertension - c/w IV hydralazine if SBP >160 - start amlodipine 5mg daily - continue to monitor blood pressure # Adrenal Insufficiency - chronically on PO prednisone 8mg daily; will continue - AM cortisol 1.3; pending random urine cortisol # Peripheral Artery Disease - possibly associated with diabetes - s/p b/l amputations from knee down # DVT prophylaxis - Heparin 5000U BID DISPOSITION: pending clinical improvement and cultures VS, [facility]O Vital Signs Date Time Temp Pulse Resp B/P (MAP) Pulse Ox O2 Delivery O2 Flow Rate FiO2 12/10/20 08:00 98.4 64 22 168/82 (110) 97 Room Air 12/08/20 19:30 2.0 I&O- Last 24 Hours up to 6 AM 12/10/20 06:00 Intake Total 780 ml Output Total 3250 ml Balance -2470 ml Laboratory Data 24H LABS Laboratory Tests 2 12/09/20 09:37: Bedside Glucose (Misc Panel) 366H 12/09/20 11:59: Bedside Glucose (Misc Panel) 273H 12/09/20 16:55: Bedside Glucose (Misc Panel) 349H 12/09/20 21:03: Bedside Glucose (Misc Panel) 356H 12/10/20 06:15: Bedside Glucose (Misc Panel) 199H 12/10/20 06:30: Nucleated Red Blood Cells % (auto) 0.0, Urine Color STRAW, Urine Appearance CLEAR, Urine pH 7.0, Urine Specific Totz 1.003, Urine Protein NEGATIVE, Urine Glucose (UA) 3+H, Urine Ketones NEGATIVE, Urine Blood NEGATIVE, Urine Nitrite NEGATIVE, Urine Bilirubin NEGATIVE, Urine Urobilinogen 0.2, Urine Leukocyte Esterase NEGATIVE, Urine WBC (Auto) 1, Urine RBC (Auto) 1, Urine Hyaline Casts (Auto) 0, Urine Bacteria (Auto) NEGATIVE, Urine Squamous Epithelial Cells 0, Urine Mucus (Auto) SMALL, Urine Sperm (Auto) , Anion Gap 5L, Glomerular Filtration Rate > 60.0, Calcium Level 7.7L 12/10/20 07:59: Cortisol AM Sample 1.3L 12/10/20 08:07: Bedside Glucose (Misc Panel) 180H CBC/BMP Laboratory Tests 12/10/20 06:30 Microbiology Microbiology 12/08/20 Wound Culture, Received Pending 12/08/20 Anaerobic Culture, Received Pending 12/08/20 Anaerobic Culture, Received Pending 12/08/20 Gram Stain - Final, Resulted 12/08/20 Abscess Culture, Resulted Pending 12/05/20 Wound Culture - Final, Complete Staphylococcus Sp Coag Neg 12/05/20 Blood Culture - Preliminary, Resulted No Growth after 72 hours. All specime... 12/05/20 Blood Culture - Preliminary, Resulted No Growth after 72 hours. All specime... GME ATTESTATION GME ATTESTATION My faculty preceptor for this patient encounter was physically present during the encounter and was fully available. All aspects of the patient interview, examination, medical decision making process, and medical care plan development were reviewed and approved by the faculty preceptor. The faculty preceptor is aware and concurs with the plan as stated in the body of this note and will attest to such by his/her cosignature. Claribel Lamb DO Dec 10, 2020 09:20
--- NOTE | 2020-12-10 11:58 | IPNPDOC ---
Text Note Date of Service The patient was seen on 12/10/20 at 8:30 AM. NOTE Postop day 2, status post right below-knee amputated stump revision. The patient is doing well. He feels much better. He is able to tolerate more p.o. diet, without nausea or vomiting. Pain control adequate, with p.o. medication. He is on vancomycin and cefepime, as per hospitalist, for coag negative staph, wound cultures drawn on 12/05/2020. Intraoperative cultures are negative so far. Labs noted: White count mildly increased from 9.3-12.5. Hemoglobin is stable. Impression and plan: Patient doing well. Suggest antibiotics as per cultures Contact wound care, for wound management of the right BKA stump. Patient understands and agrees to the plan of care. All his questions were answered and concerns addressed VS,Fishbone, I+O VS, Fishbone, I+O Laboratory Tests 12/10/20 06:30 Vital Signs Date Time Temp Pulse Resp B/P (MAP) Pulse Ox O2 Delivery O2 Flow Rate FiO2 12/10/20 08:00 98.4 64 22 168/82 (110) 97 Room Air 12/08/20 19:30 2.0 I&O- Last 24 Hours up to 6 AM 12/10/20 06:00 Intake Total 780 ml Output Total 3250 ml Balance -2470 ml Anais Jones MD Dec 10, 2020 11:58
[2020-12-10 12:00] VITALS: BP 145/63
[2020-12-10] MEDS: CADEXOMER IODINE 10GM (IODOSORB) GEL TOP SCH ×2 (14:10→20:46)
[2020-12-10 16:00] VITALS: BP 105/55
[2020-12-10 20:00] VITALS: BP 125/58
[2020-12-11] VITALS: BP 152/70
[2020-12-11] MEDS: VANCOMYCIN HCL 750 MG, VIAL MATE ADAPTER 1 EACH in NS 250 ML IV SCH (01:50)
[2020-12-11 04:00] VITALS: BP 166/71
[2020-12-11] MEDS: CEFEPIME HCL 1 GM in D5W MINI-BAG PLUS 50 ML IV SCH (06:02)
[2020-12-11] MEDS: PANTOPRAZOLE 40MG VIAL (C9113 PER 1) IV SCH (06:02)
[2020-12-11 06:25] LABS: HEMATOCRIT 28.7 % (42.0-52.0); HEMOGLOBIN 10.3 g/dl (13.5-17.5); MEAN CORPUSCULAR HEMOGLOBIN 32.1 pg (27.0-33.0); MEAN CORPUSCULAR HGB CONC 35.9 g/dl (32.0-36.5); MEAN CORPUSCULAR VOLUME 89.4 fl (80.0-96.0); PLATELET COUNT, AUTOMATED 185 10^3/uL (150-450); RED BLOOD COUNT 3.21 10^6/uL (4.30-6.10); WHITE BLOOD COUNT 8.1 10^3/uL (4.0-10.0)
[2020-12-11 06:51] LABS: BLOOD UREA NITROGEN 14 MG/DL (7-18); CALCIUM LEVEL 7.7 MG/DL (8.8-10.2); CARBON DIOXIDE LEVEL 29 MEQ/L (21-32); CHLORIDE LEVEL 104 MEQ/L (98-107); CREATININE FOR GFR 0.99 MG/DL (0.70-1.30); GLOMERULAR FILTRATION RATE > 60.0 (>49); GLUCOSE, FASTING 197 MG/DL (70-100); POTASSIUM SERUM 3.8 MEQ/L (3.5-5.1); SODIUM LEVEL 138 MEQ/L (136-145)
[2020-12-11] MEDS: SUCRALFATE 1 GM TAB PO SCH ×3 (07:31→17:19)
[2020-12-11] MEDS: HumaLOG INSULIN (NovoLOG) PER UNIT SC SCH ×4 (07:31→20:12)
[2020-12-11 08:00] VITALS: BP 162/84
[2020-12-11] MEDS: NYSTATIN 500,000 U/5 ML SUSP UDC SS SCH ×4 (08:54→20:11)
[2020-12-11] MEDS: CitaloPRAM (CeleXA) 20 MG TAB PO SCH (08:56)
[2020-12-11] MEDS: FINASTERIDE 5 MG TAB PO SCH (08:56)
[2020-12-11] MEDS: ASPIRIN 81MG ENTERIC TABLET PO SCH (08:57)
[2020-12-11] MEDS: amLODIPine 5 MG TAB PO SCH (08:57)
[2020-12-11] MEDS: ATORVASTATIN 20 MG TAB PO SCH (08:57)
[2020-12-11] MEDS: GABAPENTIN 300 MG CAP PO SCH ×2 (08:57→20:12)
[2020-12-11] MEDS: DOCUSATE SODIUM 100MG CAPSULE PO SCH (08:58)
[2020-12-11] MEDS: CLOPIDOGREL 75 MG TAB PO SCH (08:58)
[2020-12-11] MEDS: MULTIVITAMINS/MINERALS THERAP 1 TAB PO SCH (08:58)
[2020-12-11] MEDS: predniSONE 1 MG TAB PO SCH (08:59)
[2020-12-11] MEDS: HEPARIN SOD (PORCINE) 5000UNITS/ML 1ML VIAL/SYRINGE SC SCH ×2 (09:00→20:11)
[2020-12-11] MEDS: BISACODYL 10 MG SUPP PR SCH (09:00)
[2020-12-11] MEDS: LEVEMIR (INSULIN DETEMIR) 1 UNITS/0.01ML SC SCH ×2 (09:00→20:23)
[2020-12-11] MEDS: BRIMONIDINE 0.1% OPHTH SOLN 5 ML OU SCH ×2 (09:01→20:13)
[2020-12-11] MEDS: PROMETHAZINE INJ 25 MG/ML VIAL (J2550) IV SCH (09:36)
[2020-12-11] MEDS: CADEXOMER IODINE 10GM (IODOSORB) GEL TOP SCH ×2 (09:36→20:13)
[2020-12-11] MEDS ORDERED: SENOKOT S TAB PO ONE (09:55)
--- NOTE | 2020-12-11 09:59 | IPNPDOC ---
Text Note Date of Service The patient was seen on 12/11/20. NOTE HPI: Patient is a 60 year old male with PMH of diabetes mellitus type I with insulin pump, adrenal insufficiency chronically on steroids, peripheral artery disease, diabetic foot infections s/p bilateral below the knee amputation presented to the ED for intractable nausea and vomiting who was found to have right stump pus drainage with osteomyelitis s/p revision of right BKA revision. Patient is lying comfortably on bed. He said that he has mild pain in his right stump. He denies any nausea, vomiting, or abdominal pain. Patient said he uses a wheelchair majority of the time at home. He said when he is ready for discharge, he would prefer to go home instead of rehab. He said that he still has not have a bowel movement ROS: Constitutional: denies fever, chills HEENT: denies headaches Lungs: denies dyspnea Heart: denies chest pain or palpations GI: denies nausea, vomiting, or, abdominal pain Extremities: Reported right stump mild pain. Unsure if there is drainage Objectives: VITAL SIGNS: Please see below. General: Lying comfortably on bed without any acute distress HEENT: Normocephalic, atraumatic; moist mucous membranes and pink Cardiovascular: Regular rate and rhythm; systolic murmur present Lungs: Clear to auscultation bilaterally; no wheezes or rales or rhonchi noted. No accessory muscle use or labored breathing GI: bowel sound present in all 4 quadrants, soft, nondistended. No tenderness in all quadrants. No guarding Extremities: S/p bilateral below the knee amputation; Right stumpcovered with dressing Neuro: CN2-12 grossly intact; no obvious focal neurological deficit Assessment and plans: Patient is a 60 year old male with PMH of diabetes mellitus type I with insulin pump, adrenal insufficiency chronically on steroids, peripheral artery disease, diabetic foot infections s/p bilateral below the knee amputation presented to the ED for intractable nausea and vomiting who was found to have right stump pus drainage with osteomyelitis s/p revision of right BKA revision. Nausea, vomiting, and abdominal pain has resolved. S/p PICC line insertion on Vancomycin 1. Hyperemesis, likely associated with osteomyelitis vs cannabis hyperemsis syndrome, resolved - Right lower extremity osteomyelitis with pus drainage - History of Cannabis use, stopped about 1 week ago - Continue IV Zofran PRN, PO Protonix, and PO Carafate 2. Right stump osteomyelitis and abscess s/p right BKA revision - Vascular surgery Dr. Jones consulted and we appreciate their assistance and expertise in patient care. S/p abscess drainage. S/p right below the knee amputation revision with 2 cm segment of distal aspect of the tibial stump resection. - Bone pathology indicated osteomyelitis - 12/08/20 Wound/abscess/anaerobic culture showed staph epidermidis. 12/05/20 Wound culture showed coagulase negative staph likely consistent with staph epidermidis. - S/p PICC line insertion. Continue IV Vanco for staph epidermidis coverage. D/C IV Cefipime. Patient will require antibiotics for total 6-8 weeks for right stump osteomyelitis - Dr. Ledesma consulted and we appreciate their assistance and expertise in patient care. Continue wound care with Vashe wound cleanser for 10 minutes, then topical Iodosorb. Cadexomer iodine to be applied to wound covered with Hydrofera Blue Ready foam. Dressing change every other day. 3. Troponinemia - Denies chest pain, palpitation, or dyspnea - Troponin downtrending - EKG showed no acute ST elevation/depressions - Echocardiogram showed "Grade 1 diastolic dysfunction, prominent aortic sclerotic with only trivial stenosis and no insufficiency. Mild tricuspid insufficiency. Normal central venous pressure and likely mild pulmonary hypertension." 4. Diabetes mellitus Type I with history of hypoglycemia - HbA1c 7.8. - Hole insulin pump while here - Continue insulin Levemir and insulin sliding scale - Consistent carbohydrate diet 5. Hypertension - Continue amlodipine 5mg daily. Not on anti-hypertensives at home. Add on Lisinopril as patient also has diabetes mellitus; GFR>60, holding parameters placed - Continue IV hydralazine as needed for SBP >160 - Continue to monitor blood pressure 6. Peripheral Artery Disease - Likely associated with diabetes - s/p b/l amputations from knee down - Continue aspirin 81mg daily, Plavix 75mg daily, and atorvastatin 7. Constipation -Continue Senna, Colace, and Dulcolax daily PRN. One dose of SenokotS ordered. 8. Grade 1 diastolic dysfunction - Echocardiogram showed grade 1 diastolic dysfunction, patient appears to be hemodynamically stable. - Follow up outpatient 9. Aortic sclerosis -Echo showed prominent aortic sclerotic with only trivial stenosis and no insufficiency. -Patient denies any chest pain, palpitation, or dyspnea -Follow up outpatient 10. Mild tricuspid insufficiency -shown on echo -follow up outpatient as patient is asymptomatic for acute cardiac or pulmonary symptoms 11. Question mild pulmonary hypertension -Echocardiogram showed likely mild pulmonary hypertension -follow up outpatient as patient is asymptomatic for acute cardiac or pulmonary symptoms # DVT prophylaxis - SC Heparin 5000 units BID DISPOSITION: Continue with antibiotics for 6-8 weeks in total. Pending PT clearance. VS,Fishbone, I+O VS, Fishbone, I+O Laboratory Tests 12/11/20 06:12 Vital Signs Date Time Temp Pulse Resp B/P (MAP) Pulse Ox O2 Delivery O2 Flow Rate FiO2 12/11/20 08:57 80 162/84 12/11/20 08:00 98.1 16 99 Room Air 12/08/20 19:30 2.0 I&O- Last 24 Hours up to 6 AM 12/11/20 05:59 Intake Total 2690 ml Output Total 2690 ml Balance 0 ml GME ATTESTATION GME ATTESTATION My faculty preceptor for this patient encounter was physically present during the encounter and was fully available. All aspects of the patient interview, examination, medical decision making process, and medical care plan development were reviewed and approved by the faculty preceptor. The faculty preceptor is aware and concurs with the plan as stated in the body of this note and will attest to such by his/her cosignature. ATTENDING NOTE I saw and evaluated the patient. I agree with the findings and the plan of care as documented in the resident's note TROY ZENDEJAS DO Dec 11, 2020 09:59 SHARRI PANDEY DO Dec 11, 2020 19:10
[2020-12-11] MEDS: ACETAMINOPH W/CODEINE #3 TAB UD PO PRN ×2 (10:35→21:23)
[2020-12-11 12:00] VITALS: BP 152/70
--- NOTE | 2020-12-11 12:12 | IPNPDOC ---
Text Note Date of Service The patient was seen on 12/11/20. NOTE Postop day 3, status post revision of the right below-knee amputated stump. The patient is doing well. He feels tired. However he denies any significant nausea or vomiting. He is tolerating his diet well without any nausea or vomiting. He is afebrile, with stable vital signs. Pain control is adequate. The right BKA stump dressing was changed by the nurse today-iodoform followed by Hydrofera Blue foam was applied to the stump, as per wound care orders. No active bleeding. Relevant labs and microbiology results noted: White count normal today, stable hemoglobin. Intraoperative cultures grew staph epidermidis-resistant to oxacillin, and sensitive to vancomycin. He is on intravenous vancomycin currently. Plan per primary service is to discharge him on intravenous antibiotics for a total of 6 to 8 weeks duration. The patient has a left arm PICC line. Impression/plan: Patient doing well from his surgery. Continue intravenous antibiotics, as per cultures. Wound care as per wound team recommendations. VS,[place], I+O VS, [place], I+O Laboratory Tests 12/11/20 06:12 Vital Signs Date Time Temp Pulse Resp B/P (MAP) Pulse Ox O2 Delivery O2 Flow Rate FiO2 12/11/20 10:35 18 12/11/20 08:57 80 162/84 12/11/20 08:00 98.1 99 Room Air 12/08/20 19:30 2.0 I&O- Last 24 Hours up to 6 AM 12/11/20 06:00 Intake Total 2690 ml Output Total 2290 ml Balance 400 ml Anais Jones MD Dec 11, 2020 12:12
[2020-12-11] MEDS: lisinopriL 5 MG TAB PO SCH (12:25)
[2020-12-11] MEDS: NS 1,000 ML IV SCH (13:11)
[2020-12-11] MEDS: VANCOMYCIN HCL 1,000 MG, VIAL MATE ADAPTER 1 EACH in NS 250 ML IV SCH (14:53)
[2020-12-11 16:00] VITALS: BP 158/60
[2020-12-11] MEDS ORDERED: LINE1TAB6 PO (19:33)
[2020-12-11 19:45] VITALS: BP 147/73
[2020-12-11] MEDS: PANTOPRAZOLE 40MG TAB (PROTONIX) PO SCH (20:12)
[2020-12-12] VITALS: BP 151/60
[2020-12-12] MEDS: VANCOMYCIN HCL 1,000 MG, VIAL MATE ADAPTER 1 EACH in NS 250 ML IV SCH ×2 (01:49→15:37)
[2020-12-12] MEDS: NS 1,000 ML IV SCH ×2 (03:31→16:35)
[2020-12-12 04:00] VITALS: BP 136/70
[2020-12-12 05:45] LABS: HEMATOCRIT 28.5 % (42.0-52.0); HEMOGLOBIN 9.6 g/dl (13.5-17.5); MEAN CORPUSCULAR HEMOGLOBIN 30.7 pg (27.0-33.0); MEAN CORPUSCULAR HGB CONC 33.7 g/dl (32.0-36.5); MEAN CORPUSCULAR VOLUME 91.1 fl (80.0-96.0); PLATELET COUNT, AUTOMATED 178 10^3/uL (150-450); RED BLOOD COUNT 3.13 10^6/uL (4.30-6.10); WHITE BLOOD COUNT 6.7 10^3/uL (4.0-10.0)
[2020-12-12 06:11] LABS: BLOOD UREA NITROGEN 13 MG/DL (7-18); CARBON DIOXIDE LEVEL 30 MEQ/L (21-32); CHLORIDE LEVEL 106 MEQ/L (98-107); CREATININE FOR GFR 0.97 MG/DL (0.70-1.30); GLOMERULAR FILTRATION RATE > 60.0 (>49); GLUCOSE, FASTING 254 MG/DL (70-100); POTASSIUM SERUM 3.9 MEQ/L (3.5-5.1); SODIUM LEVEL 139 MEQ/L (136-145)
[2020-12-12 06:12] LABS: CALCIUM LEVEL 7.8 MG/DL (8.8-10.2)
[2020-12-12] MEDS: HumaLOG INSULIN (NovoLOG) PER UNIT SC SCH ×3 (07:30→18:33)
[2020-12-12 08:00] VITALS: BP 156/80
[2020-12-12] MEDS: BISACODYL 10 MG SUPP PR SCH (09:00)
[2020-12-12] MEDS: BRIMONIDINE 0.1% OPHTH SOLN 5 ML OU SCH (09:00)
[2020-12-12] MEDS: ASPIRIN 81MG ENTERIC TABLET PO SCH (09:05)
[2020-12-12] MEDS: CitaloPRAM (CeleXA) 20 MG TAB PO SCH (09:05)
[2020-12-12] MEDS: predniSONE 1 MG TAB PO SCH (09:05)
[2020-12-12] MEDS: GABAPENTIN 300 MG CAP PO SCH (09:05)
[2020-12-12] MEDS: FINASTERIDE 5 MG TAB PO SCH (09:06)
[2020-12-12] MEDS: PANTOPRAZOLE 40MG TAB (PROTONIX) PO SCH (09:06)
[2020-12-12] MEDS: SUCRALFATE 1 GM TAB PO SCH ×3 (09:06→17:30)
[2020-12-12] MEDS: NYSTATIN 500,000 U/5 ML SUSP UDC SS SCH ×3 (09:06→18:32)
[2020-12-12] MEDS: MULTIVITAMINS/MINERALS THERAP 1 TAB PO SCH (09:06)
[2020-12-12] MEDS: ATORVASTATIN 20 MG TAB PO SCH (09:06)
[2020-12-12] MEDS: CLOPIDOGREL 75 MG TAB PO SCH (09:06)
[2020-12-12] MEDS: HEPARIN SOD (PORCINE) 5000UNITS/ML 1ML VIAL/SYRINGE SC SCH (09:06)
[2020-12-12] MEDS: DOCUSATE SODIUM 100MG CAPSULE PO SCH (09:06)
[2020-12-12] MEDS: CADEXOMER IODINE 10GM (IODOSORB) GEL TOP SCH (09:07)
[2020-12-12] MEDS: LEVEMIR (INSULIN DETEMIR) 1 UNITS/0.01ML SC SCH (09:07)
[2020-12-12 09:09] VITALS: BP 156/80
[2020-12-12] MEDS: amLODIPine 5 MG TAB PO SCH (09:09)
[2020-12-12] MEDS: lisinopriL 5 MG TAB PO SCH (09:09)
--- NOTE | 2020-12-12 11:24 | IPNPDOC ---
Text Note Date of Service The patient was seen on 12/12/20. NOTE Postop day 4, status post revision of the right below-knee amputation. Patient comfortable. Pain control adequate. Sleeping. Currently afebrile-he had a mild increase in temperature yesterday 99.8 F. No leukocytosis. Vital signs stable Right leg stump dressing is clean dry intact. Plan to change dressing tomorrow as per wound care instructions. He is on intravenous vancomycin, for coag negative staph epidermidis. Plan to continue either p.o. or intravenous antibiotics for 6 to 8 weeks. If the patient is discharged today, suggest follow-up in vascular clinic as an outpatient. VS,Fishbone, I+O VS, Fishbone, I+O Laboratory Tests 12/12/20 05:14 Vital Signs Date Time Temp Pulse Resp B/P (MAP) Pulse Ox O2 Delivery O2 Flow Rate FiO2 12/12/20 09:09 68 156/80 12/12/20 08:00 97.9 18 95 Room Air 12/08/20 19:30 2.0 I&O- Last 24 Hours up to 6 AM 12/12/20 06:00 Intake Total 1945 ml Output Total 3300 ml Balance -1355 ml Anais Jones MD Dec 12, 2020 11:24
[2020-12-12] MEDS ORDERED: AMLO1TAB24 PO (11:36)
[2020-12-12] MEDS ORDERED: LISI-898 PO (11:36)
[2020-12-12 12:00] VITALS: BP 166/78
--- NOTE | 2020-12-12 19:08 | DS.PDOC ---
Discharge Summary General Date of Admission Dec 05, 2020 at 20:22 Date of Discharge Dec 12, 2020 Specialist/Consultants Involve Advance wound care: Dr. Ledesma Vascular surgery: Dr. Jones Discharge Summary PROCEDURES PERFORMED DURING STAY: Revision of right below the knee amputated stump by Dr. Jones on 12/08/2020 ADMITTING DIAGNOSES: 1. Intractable nausea and vomiting 2. Right stump osteomyelitis 3. Dehydration 4. Dyspepsia 5. Adrenal insufficiency 6. Face psoriasis 7. Cataracts 8. Diabetes mellitus 9. Hyperlipidemia 10. BPH 11. Anxiety/depression DISCHARGE DIAGNOSES: 1. Intractable nausea and vomiting 2. Right stump osteomyelitis 3. Dehydration 4. Dyspepsia 5. Adrenal insufficiency 6. Face psoriasis 7. Cataracts 8. Diabetes mellitus 9. Hyperlipidemia 10. BPH 11. Anxiety/depression COMPLICATIONS/CHIEF COMPLAINT: Rony, Cannabinoid Hyperemesis Syndrome. HISTORY OF PRESENT ILLNESS: Mr. Girard is a 60-year-old male with diabetes mellitus type 1 on insulin pump and adrenal insufficiency who is here for intractable nausea and vomiting. He tells me that this started last . He does not remember much. He tells me that the steroids have destroyed his short-term memory. Denies any new medications, strange food, sick contacts, or any new events. Since it started, she has not tolerated anything orally. He has tried Powerade and water, but he would vomit it back up. He also has epigastric pain that feels like a burning pain. Nontender to palpation. He denies any diarrhea. His urine output has been poor due to poor oral intake. Otherwise patient tells me that he decided to stop taking marijuana a week ago because it is making him sick. He tells me that he stopped seeing the boom master 4 years ago. They had giv en him high-dose steroids (50 to 60 mg) and afterward he developed adrenal insufficiency. He is chronically on 8 mg. He does not remember why he has seen the boom master. When I was evaluating the patient in the ED, he has a plaque like rash on his face. Denies any history of lupus or psoriasis. He thinks that the rash started about a week ago. Otherwise, he has pus leaking from his right stump. It is a pale yellow color. Culture was taken and patient started on ceftaroline. Patient will be admitted for cannabis hyperemesis syndrome and acute renal failure. HOSPITAL COURSE: During hospitalization, wound care was consulted for the right stump drainage. Advanced wound care recommended imaging. An MRI was obtained which demonstrated a fluid collection which could represent an early abscess and osteomyelitis. Patient was started on vancomycin. Vascular surgery was consulted and patient was taken to the OR on 12/08/2020 for a revision of right below the knee amputated stump. She took both a bone sample and culture and abscess culture. Patient's nausea started to improve after antibiotics. Is able to tolerate a diet without issue. Pathology of the bone demonstrated os teomyelitis. Cultures of the bone and abscess both grew Staph epidermidis. I called bacteriology to confirm. Patient will need 6 weeks of antibiotics. Six weeks from today would be 39 days. I sent 72 tablets to patient's pharmacy. Insurance will cover and it would cost him a $1.30. Patient was agreeable to this. Today he cleared physical therapy. He does not ambulate with his prosthesis. He uses his prosthesis to transfer from bed to wheelchair. I told him with linezolid, he had to stop citalopram. He would start his linezolid tomorrow. Otherwise he will need to get weekly CBCs to monitor for side effect of linezolid, which is pancytopenia. Patient was agreeable. He felt ready for home and was discharged home today. DISCHARGE MEDICATIONS: Please see below. ALLERGIES: Please see below. PHYSICAL EXAMINATION ON DISCHARGE: VITAL SIGNS: Please see below. GENERAL: Comfortable, in no apparent distress. HEENT: Sclera clear. NECK: Supple. RESPIRATORY: Lungs clear to auscultation bilaterally, no rales, wheeze or rhonchi. CARDIOVASCULAR: Regular rate and rhythm. ABDOMEN: Soft, nontender, no guarding or rebound tenderness. Normal bowel sounds. MUSCLE SKELETAL: Bilateral BKA's. PSYCHOLOGICAL: Normal mood and affect LABORATORY DATA: Please see below. IMAGING: Radiologist interpretation Ultrasound nonvascular of the right Periosteal abscess with fistulous tract extending to the skin surface. Knee MRI without contrast, right 1. At the amputation site of the distal tibia is a 3.6 cm x 2 cm in thickness fluid collection that could represent early abscess. Bright signal intensity within the tibia could be reactive change of bone or early changes of osteomyelitis. No evidence of significant bone loss. 2. Severe soft tissue swelling through the muscle at the stump. CT abdomen pelvis without contrast Bilateral intrarenal nephrolithiasis without hydronephrosis.. Vascular calcification. Normal appendix. No acute abdominal or pelvic abnormality. PROGNOSIS: Good ACTIVITY: As tolerated. DIET: Carbohydrate consistent diet DISCHARGE PLAN: Home with home services DISPOSITION: Home. DISCHARGE INSTRUCTIONS: 1. Follow-up with PCP within 1 week 2. Continue antibiotic course to completion 3. Monitor your CBCs weekly for pancytopenia 4. Do not take citalopram 5. If you feel nauseous, unwell, agitated, or have tremors or muscle rigidity, please come back to the ED for evaluation 6. Please restart use of insulin pump ITEMS TO FOLLOWUP ON ON OUTPATIENT: 1. CBC for pancytopenia DISCHARGE CONDITION: Stable. Total time spent discharge planning, discharge summary, and medication reconciliation: 55 minutes Vital Signs/I&Os Vital Signs Date Time Temp Pulse Resp B/P (MAP) Pulse Ox O2 Delivery O2 Flow Rate FiO2 12/12/20 12:00 98.0 64 17 166/78 (107) 95 Room Air 12/08/20 19:30 2.0 I&O- Last 24 Hours up to 6 AM 12/12/20 06:00 Intake Total 1945 ml Output Total 3300 ml Balance -1355 ml Laboratory Data Labs 24H Laboratory Tests 2 12/11/20 19:58: Bedside Glucose (Misc Panel) 226H 12/12/20 05:14: Nucleated Red Blood Cells % (auto) 0.0, Anion Gap 3L, Glomerular Filtration Rate > 60.0, Calcium Level 7.8L 12/12/20 09:03: Bedside Glucose (Misc Panel) 304H 12/12/20 11:41: Bedside Glucose (Misc Panel) 334H CBC/BMP Laboratory Tests 12/12/20 05:14 FSBS Laboratory Tests Test 12/11/20 19:58 12/12/20 09:03 12/12/20 11:41 Range/Units Bedside Glucose (Misc Panel) 226 304 334 80-115 MG/DL Microbiology Microbiology 12/08/20 Wound Culture - Final, Complete Staphylococcus Epidermidis 12/08/20 Anaerobic Culture - Final, Complete 12/08/20 Anaerobic Culture - Final, Complete 12/08/20 Gram Stain - Final, Complete 12/08/20 Abscess Culture - Final, Complete Staphylococcus Epidermidis 12/05/20 Wound Culture - Final, Complete Staphylococcus Sp Coag Neg 12/05/20 Blood Culture - Final, Complete NO GROWTH AFTER 5 DAYS 12/05/20 Blood Culture - Final, Complete NO GROWTH AFTER 5 DAYS Discharge Medications Scheduled Amlodipine Besylate (Amlodipine Besylate) 5 Mg Tablet, 5 MG PO DAILY Aripiprazole (Abilify) 5 Mg Tablet, 5 MG PO DAILY, (Reported) Aspirin (Aspirin EC) 81 Mg Tablet.dr, 81 MG PO DAILY, (Reported) Atorvastatin Calcium (Atorvastatin Calcium) 40 Mg Tablet, 40 MG PO DAILY, (Reported) Brimonidine Tartrate (Alphagan P) 0.1% 5ML Drops, 1 DROP OU BID, (Reported) Clopidogrel Bisulfate (Plavix) 75 Mg Tablet, 75 MG PO DAILY, (Reported) Ferrous Sulfate (Ferrous Sulfate) 325 Mg Tab, 325 MG PO QWEEK, (Reported) SUNDAY Finasteride (Finasteride) 5 Mg Tablet, 5 MG PO DAILY, (Reported) Gabapentin (Gabapentin) 300 Mg Capsule, 300 MG PO BID, (Reported) Insulin Human Lispro (Novolog) 100 Unit/1 Ml Vial, 1 DOSE SC ASDIRECTED, (Reported) UP TO 100 UNITS DAILY CONTINUOUS THROUGH INSULIN PUMP Linezolid (Linezolid) 600 Mg Tablet, 600 MG PO BID Lisinopril (Lisinopril) 5 Mg Tablet, 5 MG PO DAILY Multivitamins (Thera M Plus Tablet) 1 Each Tablet, 1 TAB PO DAILY, (Reported) Pantoprazole Sodium (Pantoprazole Sodium) 40 Mg Tablet.dr, 40 MG PO BID, (Reported) Prednisone (Prednisone) 1 Mg Tablet, 3 MG PO DAILY, (Reported) TAKES WITH 5MG FOR 8MG TOTAL Prednisone (Prednisone) 5 Mg Tablet, 5 MG PO DAILY, (Reported) TAKE WITH 3MG FOR 8MG TOTAL Scheduled PRN Glucagon,Human Recombinant (Glucagon Emergency Kit) 1 Mg Vial, 1 MG IM ASDIRECTED PRN for LOW BLOOD SUGAR, (Reported) Allergies Coded Allergies: No Known Allergies (Unverified , 03/01/20) SHARRI PANDEY DO Dec 12, 2020 17:50
== END 2020-12-12 19:14 | disposition home or self-care (01) | DRG 464 ==
LOC: M ED 20:21 → M ED INP 20:22 → ENRESERV 12-06 04:16 → M MS5PR 12-06 05:12 → M PCU 12-06 11:28
PROVIDERS: ADMIT Internal Medicine; ATTEND Internal Medicine
PROC: 0QBG0ZX Excision of Right Tibia, Open Approach, Diagnostic (ICD-10-PCS; 2020-12-08)
PROC: 02HV33Z Insertion of Infusion Device into Superior Vena Cava, Percutaneous Approach (ICD-10-PCS; 2020-12-08)
PROC: 0JBN0ZZ Excision of Right Lower Leg Subcutaneous Tissue and Fascia, Open Approach (ICD-10-PCS; principal; 2020-12-08 07:58)
DX: T87.53 Necrosis of amputation stump, right lower extremity (principal); E27.40 Unspecified adrenocortical insufficiency; M86.161 Other acute osteomyelitis, right tibia and fibula; R11.2 Nausea with vomiting, unspecified; L40.8 Other psoriasis; E10.69 Type 1 diabetes mellitus with other specified complication; E78.5 Hyperlipidemia, unspecified; N40.0 Benign prostatic hyperplasia without lower urinary tract symptoms; F41.9 Anxiety disorder, unspecified; F32.9 Major depressive disorder, single episode, unspecified; E86.0 Dehydration; Z79.899 Other long term (current) drug therapy; Z79.4 Long term (current) use of insulin; Z79.52 Long term (current) use of systemic steroids; E10.319 Type 1 diabetes mellitus with unspecified diabetic retinopathy without macular edema; E10.21 Type 1 diabetes mellitus with diabetic nephropathy; E10.43 Type 1 diabetes mellitus with diabetic autonomic (poly)neuropathy; G43.909 Migraine, unspecified, not intractable, without status migrainosus; Z87.891 Personal history of nicotine dependence; F12.10 Cannabis abuse, uncomplicated; H26.9 Unspecified cataract; N20.0 Calculus of kidney; K44.9 Diaphragmatic hernia without obstruction or gangrene; Y83.5 Amputation of limb(s) as the cause of abnormal reaction of the patient, or of later complication, without mention of misadventure at the time of the procedure; E10.51 Type 1 diabetes mellitus with diabetic peripheral angiopathy without gangrene; K59.00 Constipation, unspecified; I36.0 Nonrheumatic tricuspid (valve) stenosis

== ENCOUNTER 2020-12-19 18:24 | Observation (INO) | payer MEDICARE, MEDICAID ==
[~2020-12-19] VITALS: Ht 129.5 cm; Wt 82.4 kg
[~2020-12-19 18:24] MED LIST changes: +ABIL1TAB11 PO; +BRIM1OPD OU; +LISI-898 PO
[2020-12-19] MEDS: PANTOPRAZOLE 40MG TAB (PROTONIX) PO SCH (21:00)
[2020-12-19 21:29] LABS: VENOUS BASE EXCESS -0.4 (-2.0-2.0); VENOUS HCO3 24.1 MEQ/L (23.0-27.0); VENOUS PARTIAL PRESSURE O2 62.3 mmHg (30.0-50.0); VENOUS PH 7.409 UNITS (7.330-7.430); VENOUS STANDARD HCO3 24.1 MEQ/L; VENOUS TOTAL CO2 25.3 MEQ/L (24.0-28.0)
[2020-12-19 21:39] LABS: BASO % 0.4 % (0.0-1.0); EOS % 0.2 % (0.0-3.0); HEMATOCRIT 33.1 % (42.0-52.0); HEMOGLOBIN 10.9 g/dl (13.5-17.5); LYMPH # 1.1 10^3/uL (1.5-5.0); LYMPH % 12.5 % (24.0-44.0); MEAN CORPUSCULAR HEMOGLOBIN 31.6 pg (27.0-33.0); MEAN CORPUSCULAR HGB CONC 32.9 g/dl (32.0-36.5); MEAN CORPUSCULAR VOLUME 95.9 fl (80.0-96.0); MONO # 0.3 10^3/uL (0.0-0.8); MONO % 3.1 % (2.0-8.0); NEUTROPHILS % 83.2 % (36.0-66.0); PLATELET COUNT, AUTOMATED 301 10^3/uL (150-450); RED BLOOD COUNT 3.45 10^6/uL (4.30-6.10); WHITE BLOOD COUNT 8.4 10^3/uL (4.0-10.0)
[2020-12-19 21:46] LABS: OSMOLALITY SERUM 297 MOSM/KG (280-301)
[2020-12-19 21:52] LABS: HEMOGLOBIN A1c 7.5 %
[2020-12-19 22:09] LABS: ACETONE/KETONE 2.59 MG/DL (<2.81); ALBUMIN 3.1 GM/DL (3.2-5.2); ALT/SGPT 34 U/L (12-78); BILIRUBIN,DIRECT 0.2 MG/DL (0.0-0.2); BILIRUBIN,TOTAL 0.6 MG/DL (0.2-1.0); BLOOD UREA NITROGEN 15 MG/DL (7-18); CARBON DIOXIDE LEVEL 29 MEQ/L (21-32); CHLORIDE LEVEL 101 MEQ/L (98-107); CREATININE FOR GFR 1.86 MG/DL (0.70-1.30); GLOMERULAR FILTRATION RATE 39.5 (>49); GLUCOSE, FASTING 260 MG/DL (70-100); LIPASE 48 U/L (73-393); POTASSIUM SERUM 6.1 MEQ/L (3.5-5.1); SODIUM LEVEL 135 MEQ/L (136-145); TOTAL PROTEIN 6.1 GM/DL (6.4-8.2)
[2020-12-19] MEDS ORDERED: NS 1,000 ML IV ONE (22:20)
[2020-12-19] MEDS ORDERED: CALCIUM GLUCONATE 1,000 MG in D5W MINI-BAG PLUS 100 ML IV ONE (22:45)
[2020-12-19 23:11] LABS: CK-MB VALUE MASS 1.5 NG/ML (<3.6); CPK CREATINE PHOSPHOKINASE 108 U/L (39-308); MB/CK RELATIVE INDEX 1.39 (< OR =4); TROPONIN I < 0.02 NG/ML (< 0.10)
[2020-12-19] MEDS ORDERED: MAALOX 30 ML SUSP *UDC PO PRN (23:25)
[2020-12-19] MEDS ORDERED: MOM 30ML SUSPENSION UDC PO PRN (23:25)
[2020-12-19] MEDS ORDERED: ACETAMINOPHEN TAB 650MG DOSE (2X325MG) PO PRN (23:25)
[2020-12-19] MEDS ORDERED: SOD POLYSTYRENE SULFONATE SUSP 15 GM/60 ML UD PO ONE (23:25)
[2020-12-19] MEDS ORDERED: NS 1,000 ML IV SCH (23:25)
[2020-12-19] MEDS ORDERED: GLUCOSE 4GM CHEW TABLET PO PRN (23:30)
[2020-12-19] MEDS ORDERED: GLUCAGON INJ 1MG VIAL SC PRN (23:30)
[2020-12-19] MEDS ORDERED: DEXTROSE 50% 50 ML SYRINGE IV PRN (23:30)
[2020-12-19] MEDS ORDERED: HumuLIN R (REGULAR) INSULIN (NovoLIN R) **100U/ML** PER UNIT IV ONE (23:35)
[2020-12-19] MEDS ORDERED: DEXTROSE 50% 50 ML SYRINGE IV ONE (23:35)
--- NOTE | 2020-12-19 23:35 | HPEPDOC ---
[facility] Medical History & Physical Date of Admission Dec 19, 2020 Date of Service: Dec 19, 2020 Attending Physician: RITU OTERO MD History and Physical CHIEF COMPLAINT: [weakness] HISTORY OF PRESENT ILLNESS: [This is a 60 y/o male with a pmh of chf, pvd, hld, htn, dvt, gerd, bph and dm1 who was recently with us for a stay from 12/05-12/12 for treatment of osteomyelitis of right leg stump. Patient presents back on 12/19 with a cc of weakness and malaise that began this morning after breakfast. Patient states that he took his medications as prescribed but then was not able to finish his breakfast which is strange for him. Patient states that he then began to feel weak with associated room spinning dizziness followed by general malaise. Patient states that he is concerned that these symptoms were brought on by the new medications that he was started on after leaving our hospital on the . Patient states that up until today, he has felt great and had no complaints or issues. Patient states that he was worried his blood pressure was low and tells me that his blood sugars have been very high today as well. Patient, at the time of my exam, denies any fevers, chills, syncope, paresthesias, slurred speech, headache, vision changes. abd pain, n/v/d/c, dysuria, pedal edema.] PAST MEDICAL HISTORY: 1. [See HPI PAST SURGICAL HISTORY: 1. [B/l cataract removal]. 2. [B/l LE angiograms]. 3. [Right leg bka 4. Right leg aka revision 5. Left leg bka 6. Left rotator cuff repair]. SOCIAL HISTORY: Tobacco use:[Former smoker] ETOH: [Denies] Illicit drug use: [Denies] FAMILY HISTORY: Reviewed - none pertinent ALLERGIES: Please see below. REVIEW OF SYSTEMS: CONSTITUTIONAL: [See HPI]. HEENT: [Denies uri sx]. CARDIOVASCULAR: [Denies chest pain, palpitations]. RESPIRATORY: [Denies sob, wheezing]. GASTROINTESTINAL: [Denies abd pain, n/v/d/c]. GENITOURINARY: [Denies dysuria]. SKIN: [Denies rash]. MUSCULOSKELETAL: [Denies acute joint pain]. NEUROLOGICAL: [Denies syncope, paresthesias]. ENDOCRINE: [Hx of DM1]. HEMATOLOGIC/LYMPHATIC: [hx of vte]. HOME MEDICATIONS: Please see below. PHYSICAL EXAMINATION: VITAL SIGNS: Please see below. GENERAL APPEARANCE: [This is a pleasant 60 y/o male who is alert and oriented to all questioning. He does not appear to be in any acute distress]. HEENT: [No mass or lesion. EOMI. No scleral icterus. Nares patent. oral mucosa moist]. CARDIOVASCULAR: [Regular rate, rhythm. No murmurs, rubs, gallops]. LUNGS: [Good air flow b/l. no wheezing, rales, rhonchi]. ABDOMEN: [Soft, nontender]. MUSCULOSKELETAL: [Acquired absence of lower extremities below the knee]. EXTREMITIES: [No peripheral edema or rashes noted]. NEUROLOGICAL: [Speech clear. A+Ox3. No focal deficits]. PSYCHIATRIC: [Mood and affect appear appropriate]. LABORATORY DATA: See below. IMAGING: [None performed] MICROBIOLOGY: Please see below. ASSESSMENT: [This is a 60 y/o male with a pmh of chf, pvd, hld, htn, dvt, gerd, bph and dm1 who was recently with us for a stay from 12/05-12/12 for treatment of osteomyelitis of right leg stump. Patient presents back on 12/19 with a cc of weakness and malaise that began this morning after breakfast. Patient found to have hyperkalemia of 6.1 in the ed as well as iban with cr acutely elevated to 1.86 from baseline of around 1]. . PLAN: 1. [IBAN - likely combination of pre-renal as well as medication induced as patient was recently started on emily inhibitor lisinopril - will hold lisinopril - renal us ordered - ua and urine electrolytes ordered - will give ivf overnight - repeat kidney function in the am - admit to med surg under obs for w/u and tx 2. Hyperkalemia - likely secondary to dehydration, emily inhibitor - calcium gluconate ordered by ed provider - will add one dose of Kayexalate - patient will receive doses of insulin for hyperglycemia which will aid in treatment of hyperkalemia as a potassium binder - repeat k - will keep patient on telemetry overnight 3. Right stump osteomyelitis - patient recently stayed with us from 12/05-12/12 in which he had to undergo right leg bka revision to aka d/t osteomyelitis - patient will continue outpatient abx linezolid and prednisone while with us - no leukocytosis or sirs criteria present today 4. DM - sliding scale coverage - hypoglycemic protocol - continue gabapentin 5. Essential HTN - monitor bp's while inpatient as patient's lisinopril is being stopped - continue amlodipine - may need uptitration 6. GERD - continue Protonix 7. BPH - continue finasteride 8. PVD - continue Plavix, asa 9. HLD - continue atorvastatin 10. Depression/anxiety - continue Abilify 11 Class 3 obesity -complicates care DVT prophylaxis -lovenox]. Vital Signs Vital Signs Date Time Temp Pulse Resp B/P (MAP) Pulse Ox O2 Delivery O2 Flow Rate FiO2 12/19/20 23:15 166/73 (104) 12/19/20 23:09 81 97 12/19/20 18:39 97.1 16 Room Air Laboratory Data Labs 24H Laboratory Tests 2 12/19/20 19:06: Bedside Glucose (Misc Panel) 79L 12/19/20 19:14: Immature Granulocyte % (Auto) 0.6, Neutrophils (%) (Auto) 83.2H, Lymphocytes (%) (Auto) 12.5L, Monocytes (%) (Auto) 3.1, Eosinophils (%) (Auto) 0.2, Basophils (%) (Auto) 0.4, Neutrophils # (Auto) 7.0, Lymphocytes # (Auto) 1.1L, Monocytes # (Auto) 0.3, Eosinophils # (Auto) 0.0, Basophils # (Auto) 0.0, Nucleated Red Blood Cells % (auto) 0.0, Blood Gas Bicarbonate Standard 24.1, Venous Blood pH 7.409, Venous Blood Partial Pressure CO2 39.0, Venous Blood Partial Pressure O2 62.3H, Venous Blood Total Carbon Dioxide 25.3, Venous Blood HCO3 24.1, Venous Blood Oxygen Saturation 92.0H, Venous Blood Base Excess -0.4, Anion Gap 5L, Glomerular Filtration Rate 39.5L, Estimated Mean Plasma Glucose 169H, Hemoglobin A1c 7.5, Osmolality 297, Calcium Level 9.0, Total Bilirubin 0.6, Direct Bilirubin 0.2, Aspartate Amino Transf (AST/SGOT) 31, Alanine Aminotransferase (ALT/SGPT) 34, Alkaline Phosphatase 76, Total Creatine Kinase 108, Creatine Kinase MB 1.5, Creatine Kinase MB Relative Index 1.39, Troponin I < 0.02, Total Protein 6.1L, Albumin 3.1L, Albumin/Globulin Ratio 1.0, Lipase 48L, B- Hydroxybutyrate 2.59 12/19/20 20:29: Bedside Glucose (Misc Panel) 164H 12/19/20 21:31: Bedside Glucose (Misc Panel) 260H 12/19/20 23:07: Urine Color YELLOW, Urine Appearance CLEAR, Urine pH 7.0, Urine Specific Stuart 1.009, Urine Protein NEGATIVE, Urine Glucose (UA) 3+H, Urine Ketones NEGATIVE, Urine Blood NEGATIVE, Urine Nitrite NEGATIVE, Urine Bilirubin NEGATIVE, Urine Urobilinogen 0.2, Urine Leukocyte Esterase NEGATIVE, Urine WBC (Auto) 1, Urine RBC (Auto) 0, Urine Hyaline Casts (Auto) 1, Urine Bacteria (Auto) NEGATIVE, Urine Squamous Epithelial Cells 0, Urine Sperm (Auto) 12/19/20 23:10: Bedside Glucose (Misc Panel) 338H CBC/BMP Laboratory Tests 12/19/20 19:14 Home Medications Scheduled Amlodipine Besylate (Norvasc) 5 Mg Tablet, 5 MG PO BID Aripiprazole (Abilify) 5 Mg Tablet, 5 MG PO DAILY Aspirin (Aspirin EC) 81 Mg Tablet.dr, 81 MG PO DAILY Atorvastatin Calcium (Atorvastatin Calcium) 40 Mg Tablet, 40 MG PO DAILY Citalopram Hydrobromide (Citalopram HBr) 40 Mg Tablet, 40 MG PO DAILY Clopidogrel Bisulfate (Plavix) 75 Mg Tablet, 75 MG PO DAILY Ferrous Sulfate (Ferrous Sulfate) 325 Mg Tab, 325 MG PO QWEEK SUNDAY Finasteride (Finasteride) 5 Mg Tablet, 5 MG PO DAILY Gabapentin (Gabapentin) 300 Mg Capsule, 300 MG PO BID Insulin Human Lispro (Novolog) 100 Unit/1 Ml Vial, 1 DOSE SC ASDIRECTED UP TO 100 UNITS DAILY CONTINUOUS THROUGH INSULIN PUMP Linezolid (Linezolid) 600 Mg Tablet, 600 MG PO BID Multivitamins (Thera M Plus Tablet) 1 Each Tablet, 1 TAB PO DAILY Pantoprazole Sodium (Pantoprazole Sodium) 40 Mg Tablet.dr, 40 MG PO BID Prednisone (Prednisone) 1 Mg Tablet, 3 MG PO DAILY TAKES WITH 5MG FOR 8MG TOTAL Prednisone (Prednisone) 5 Mg Tablet, 5 MG PO DAILY TAKE WITH 3MG FOR 8MG TOTAL Scheduled PRN Docusate Sodium (Stool Softener) 100 Mg Capsule, 100 MG PO DAILY PRN for CONSTIPATION Glucagon,Human Recombinant (Glucagon Emergency Kit) 1 Mg Vial, 1 MG IM ASDIRECTED PRN for LOW BLOOD SUGAR Allergies Coded Allergies: No Known Allergies (Unverified , 03/01/20) A-FIB/CHADSVASC A-FIB History Current/History of A-Fib/PAF?: No JENNIFER MCDONOUGH Dec 19, 2020 23:35 RITU OTERO MD Dec 21, 2020 01:06
[2020-12-19] MEDS ORDERED: NORV5TAB PO (23:43)
[2020-12-19] MEDS ORDERED: LINE1TAB6 PO (23:43)
[2020-12-19] MEDS ORDERED: MM S100C PO (23:43)
[2020-12-19] MEDS ORDERED: LISI-898 PO (23:43)
[2020-12-19] MEDS ORDERED: CITA40TA6 PO (23:43)
[2020-12-19] MEDS ORDERED: HOME MED LIST COMPLETE! XX SCH (23:45)
[2020-12-19 23:59] LABS: MAGNESIUM LEVEL 2.1 MG/DL (1.8-2.4)
--- NOTE | 2020-12-20 00:42 | REPVR ---
PROCEDURE INFORMATION: Exam: US Retroperitoneal Limited, Kidneys Exam date and time: 12/20/2020 12:08 AM Age: 60 years old Clinical indication: Abnormal findings; Abnormal lab test; Abnormal kidney function lab tests; Additional info: Rony TECHNIQUE: Imaging protocol: Real-time ultrasound of the retroperitoneum with image documentation. Examination was focused on the kidneys. COMPARISON: Abdomen, limited US 08/15/2020 9:01 AM FINDINGS: Right kidney: The right kidney measures 10.0 cm in its cephalocaudad dimension and 6.6 x 6.4 cm in diameter. No mass, cyst or hydronephrosis. Left kidney: The left kidney measures 11.1 cm in its cephalocaudad dimension and 6.3 x 5.0 cm in diameter. No mass, cyst or hydronephrosis. Bladder: The bladder is empty and not evaluated. IMPRESSION: Negative renal sonogram. No hydronephrosis. Electronically signed by: Shravan Mitchell On 12/20/2020 00:41:59 AM
[2020-12-20 00:56] LABS: RSV AMPLIFICATION NEGATIVE (NEGATIVE)
[2020-12-20 02:28] LABS: CALCIUM LEVEL 8.2 MG/DL (8.8-10.2); CREATININE FOR GFR 1.67 MG/DL (0.70-1.30); GLOMERULAR FILTRATION RATE 44.7 (>49); POTASSIUM SERUM 5.1 MEQ/L (3.5-5.1)
[2020-12-20 04:00] VITALS: BP 126/68
[2020-12-20] MEDS ORDERED: FLUBLOK(EGG FREE)(QUAD)INFLUENZA VACC 0.5ML SYRINGE 18YRS & OLDER IM ONE (05:15)
[2020-12-20 05:24] LABS: HEMOGLOBIN 10.2 g/dl (13.5-17.5); MEAN CORPUSCULAR HEMOGLOBIN 31.2 pg (27.0-33.0); MEAN CORPUSCULAR HGB CONC 32.9 g/dl (32.0-36.5); MEAN CORPUSCULAR VOLUME 94.8 fl (80.0-96.0); PLATELET COUNT, AUTOMATED 261 10^3/uL (150-450); RED BLOOD COUNT 3.27 10^6/uL (4.30-6.10); WHITE BLOOD COUNT 8.5 10^3/uL (4.0-10.0)
[2020-12-20 05:43] LABS: ALBUMIN 2.7 GM/DL (3.2-5.2); BILIRUBIN,TOTAL 0.6 MG/DL (0.2-1.0); CALCIUM LEVEL 8.6 MG/DL (8.8-10.2); CREATININE FOR GFR 1.47 MG/DL (0.70-1.30); GLOMERULAR FILTRATION RATE 51.8 (>49); MAGNESIUM LEVEL 1.9 MG/DL (1.8-2.4); POTASSIUM SERUM 5.1 MEQ/L (3.5-5.1); TOTAL PROTEIN 5.7 GM/DL (6.4-8.2)
--- NOTE | 2020-12-20 06:55 | ECGEPIP ---
[facility] - ED Test Date: 2020-12-19 Pat Name: SEBASTIEN GARCIA Department: Room: [place] [address] Gender: Male [employer] F[employer] Player: KEELY : 1960 Requested By: EDWIN COOPER Order Number: [id number] Reading MD: Edwin Macias Measurements Intervals [place] Rate: 79 P: 51 IA: 142 QRS: 1 QRSD: 80 T: 28 QT: 370 QTc: 424 Interpretive Statements Normal sinus rhythm Septal infarct , age undetermined Nonspecific T wave abnormality Similar to tracing done 12-06-20 Electronically Signed on 12-20-2020 6:55:10 EDT by Edwin Macias
[2020-12-20] MEDS: HumaLOG INSULIN (NovoLOG) PER UNIT SC SCH ×3 (07:30→17:52)
[2020-12-20] MEDS ORDERED: SELF1KIT MC (07:41)
[2020-12-20] MEDS ORDERED: NORV5TAB PO (07:41)
[2020-12-20] MEDS ORDERED: NS 1,000 ML IV ONE (07:45)
[2020-12-20 08:00] VITALS: BP 135/57
--- NOTE | 2020-12-20 08:13 | REP ---
INDICATION: h/o chf on ivf for santo r/o edema sob. COMPARISON: 12/05/2020. TECHNIQUE: Single portable AP view of the chest was performed. FINDINGS: There is no acute infiltrate or pulmonary edema. Lungs are clear. The heart is not significantly enlarged. The mediastinal silhouette is unremarkable. The visualized osseous structures are intact. IMPRESSION: No acute pulmonary disease. <Electronically signed by Kevin Lee > 12/20/20 0830
[2020-12-20] MEDS ORDERED: SLF 3 ML SYR IV PRN (08:20)
[2020-12-20] MEDS ORDERED: amLODIPine 5 MG TAB PO SCH (09:00)
--- NOTE | 2020-12-20 09:39 | REP ---
INDICATION: htn santo r/o stenosis. COMPARISON: 12/19/2020. TECHNIQUE: Real-time sonographic evaluation of the kidneys is performed. Duplex Doppler evaluation of renal arteries performed bilaterally. FINDINGS: There is increased echotexture of both kidneys. There is no evidence of hydronephrosis, cyst, mass, or calculus in either kidney. The right kidney measures 11.5 x 5.3 x 5.4 cm. Left renal dimensions are 11.6 x 5.6 x 5.6 cm. The urinary bladder is unremarkable. Duplex Doppler evaluation of renal arteries performed bilaterally. The peak systolic velocity of the abdominal aorta at the level of the renal arteries is 64.6 centimeter/second. The peak systolic velocity of the main right renal artery is 72.2 centimeter/second, renal to aortic ratio 0.89. Resistive indices right kidney are measured in the upper, mid and lower aspects and range between 0.74 and 0.78. Acceleration times range between 0.02 and 0.03. Peak systolic velocity of the main left renal artery is 71.8 centimeters/second, the origin of the main left renal artery is not visualized. Renal to aortic ratio 0.90. Resistive indices 0.78 to 0.85. Acceleration times all in the range of 0.03. IMPRESSION: No compelling duplex Doppler sonographic evidence of significant stenosis of the renal arteries bilaterally. <Electronically signed by Kevin Lee > 12/20/20 [id number]
[2020-12-20] MEDS: ASPIRIN 81MG ENTERIC TABLET PO SCH (11:25)
[2020-12-20] MEDS: LINEZOLID 600MG TABLET (ZYVOX) PO SCH ×2 (11:25→20:47)
[2020-12-20] MEDS: GABAPENTIN 300 MG CAP PO SCH ×2 (11:25→20:47)
[2020-12-20] MEDS: MULTIVITAMINS/MINERALS THERAP 1 TAB PO SCH (11:26)
[2020-12-20] MEDS: DOCUSATE SODIUM 100MG CAPSULE PO SCH ×2 (11:26→20:49)
[2020-12-20] MEDS: predniSONE 5 MG TAB PO SCH (11:26)
[2020-12-20] MEDS: CLOPIDOGREL 75 MG TAB PO SCH (11:26)
[2020-12-20] MEDS: ATORVASTATIN 20 MG TAB PO SCH (11:26)
[2020-12-20] MEDS: PANTOPRAZOLE 40MG TAB (PROTONIX) PO SCH ×2 (11:26→20:47)
[2020-12-20] MEDS: FINASTERIDE 5 MG TAB PO SCH (11:26)
[2020-12-20] MEDS: SOD POLYSTYRENE SULFONATE SUSP 15 GM/60 ML UD PO SCH ×3 (11:27→14:45)
[2020-12-20] MEDS: amLODIPine 5 MG TAB PO SCH ×2 (11:29→20:48)
[2020-12-20] MEDS: predniSONE 1 MG TAB PO SCH (11:50)
[2020-12-20 12:00] VITALS: BP 107/60
[2020-12-20 13:04] LABS: CALCIUM LEVEL 8.6 MG/DL (8.8-10.2); CREATININE FOR GFR 1.64 MG/DL (0.70-1.30); GLOMERULAR FILTRATION RATE 45.7 (>49); POTASSIUM SERUM 5.4 MEQ/L (3.5-5.1)
[2020-12-20] MEDS ORDERED: LEVEMIR (INSULIN DETEMIR) 1 UNITS/0.01ML SC ONE ×2 (13:15→19:15)
--- NOTE | 2020-12-20 13:17 | IPNPDOC ---
Date Seen The patient was seen on 12/20/20. Progress Note addendum: Persistent hyperkalemia/renal failure -not responsive to kayexalate and ns fluids. -continue telemetry, serial mp,mg, ionized calcium while on sodium bicarb iv gtt. -postopone discharge -monitor fror respiratory failure from chf due to fluid overload. VS, I&O, 24H, Fishbone Vital Signs/I&O Vital Signs Date Time Temp Pulse Resp B/P (MAP) Pulse Ox O2 Delivery O2 Flow Rate FiO2 12/20/20 12:00 97.4 88 17 107/60 (76) 97 Room Air I&O- Last 24 Hours up to 6 AM 12/20/20 06:00 Intake Total 1649 ml Output Total 600 ml Balance 1049 ml Laboratory Data 24H LABS Laboratory Tests 2 12/19/20 19:06: Bedside Glucose (Misc Panel) 79L 12/19/20 19:14: Immature Granulocyte % (Auto) 0.6, Neutrophils (%) (Auto) 83.2H, Lymphocytes (%) (Auto) 12.5L, Monocytes (%) (Auto) 3.1, Eosinophils (%) (Auto) 0.2, Basophils (%) (Auto) 0.4, Neutrophils # (Auto) 7.0, Lymphocytes # (Auto) 1.1L, Monocytes # (Auto) 0.3, Eosinophils # (Auto) 0.0, Basophils # (Auto) 0.0, Nucleated Red Blood Cells % (auto) 0.0, Blood Gas Bicarbonate Standard 24.1, Venous Blood pH 7.409, Venous Blood Partial Pressure CO2 39.0, Venous Blood Partial Pressure O2 62.3H, Venous Blood Total Carbon Dioxide 25.3, Venous Blood HCO3 24.1, Venous Blood Oxygen Saturation 92.0H, Venous Blood Base Excess -0.4, Anion Gap 5L, Glomerular Filtration Rate 39.5L, Estimated Mean Plasma Glucose 169H, Hemoglobin A1c 7.5, Osmolality 297, Calcium Level 9.0, Magnesium Level 2.1, Total Bilirubin 0.6, Direct Bilirubin 0.2, Aspartate Amino Transf (AST/SGOT) 31, Alanine Am inotransferase (ALT/SGPT) 34, Alkaline Phosphatase 76, Total Creatine Kinase 108, Creatine Kinase MB 1.5, Creatine Kinase MB Relative Index 1.39, Troponin I < 0.02, Total Protein 6.1L, Albumin 3.1L, Albumin/Globulin Ratio 1.0, Lipase 48L, B-Hydroxybutyrate 2.59 12/19/20 20:29: Bedside Glucose (Misc Panel) 164H 12/19/20 21:31: Bedside Glucose (Misc Panel) 260H 12/19/20 23:07: Urine Color YELLOW, Urine Appearance CLEAR, Urine pH 7.0, Urine Specific [place] 1.009, Urine Protein NEGATIVE, Urine Glucose (UA) 3+H, Urine Ketones NEGATIVE, U rine Blood NEGATIVE, Urine Nitrite NEGATIVE, Urine Bilirubin NEGATIVE, Urine Urobilinogen 0.2, Urine Leukocyte Esterase NEGATIVE, Urine WBC (Auto) 1, Urine RBC (Auto) 0, Urine Hyaline Casts (Auto) 1, Urine Bacteria (Auto) NEGATIVE, Urine Squamous Epithelial Cells 0, Urine Sperm (Auto) , Coronavirus (COVID- 19)(PCR) NEGATIVE, Influenza Type A (RT-PCR) NEGATIVE, Influenza Type B (RT-PCR) NEGATIVE, Respiratory Syncytial Virus (PCR) NEGATIVE 12/19/20 23:10: Bedside Glucose (Misc Panel) 338H 12/20/20 01:09: Bedside Glucose (Misc Panel) 281H 12/20/20 01:24: Anion Gap 4L, Glomerular Filtration Rate 44.7L, Calcium Level 8.2L, [id number]-B-Type Natriuretic Peptide 199H 12/20/20 04:54: Nucleated Red Blood Cells % (auto) 0.0, Anion Gap 7L, Glomerular Filtration Rate 51.8, Calcium Level 8.6L, Magnesium Level 1.9, Total Bilirubin 0.6, Aspartate Amino Transf (AST/SGOT) 31, Alanine Aminotransferase (ALT/SGPT) 31, Alkaline Ph osphatase 71, Total Protein 5.7L, Albumin 2.7L, Albumin/Globulin Ratio 0.9 12/20/20 08:08: 12/20/20 11:30: Bedside Glucose (Misc Panel) 325H 12/20/20 12:02: Anion Gap 5L, Glomerular Filtration Rate 45.7L, Calcium Level 8.6L 12/20/20 13:07: Bedside Glucose (Misc Panel) 338H CBC/BMP Laboratory Tests 12/19/20 19:14 12/20/20 01:24 12/20/20 04:54 12/20/20 12:02 MATEO RODRIGUEZ MD Dec 20, 2020 13:17
--- NOTE | 2020-12-20 13:54 | IPN ---
PROGRESS NOTE DATE: 12/20/2020 SUBJECTIVE: The patient denies any chest pain, pressure, tightness, shortness of breath, nausea, vomiting, generalized weakness, muscle cramps, joint pains, no fever, chills, no purulent discharge at the right stump. OBJECTIVE: Vitals signs: Temperature 97.7, pulse 81, respiratory 17, blood pressure 135/57, 95% on room air. General: The patient is awake, alert and oriented x 3, answering questions appropriately. No JVD, no thyromegaly, no cervical lymphadenopathy. Lungs: Clear to auscultation, no wheezing, rales or rhonchi. Heart: S1, S2, sinus rhythm. Abdomen: Soft, nontender, nondistended, positive bowel sounds. Extremities: Bilateral BKA. Right BKA has stitches and an open wound without any purulent drainage. There is serosanguineous drainage noted, not malodorous. Laboratory data, imaging studies, microbiology have been reviewed, notable for potassium of 5.1, creatinine of 1.47, decreased from admission creatinine of 1.86. Input overnight was 1640, output of 550. ASSESSMENT AND PLAN: This is a 60-year-old male with history of congestive heart failure, peripheral vascular disease, hyperlipidemia, DVT, hypertension, reflux, BPH and type 1 diabetic, with right lower extremity below the-knee amputation and left lower extremity dhcdm-hli-comp amputation. ACTIVE ISSUES: 1. Hyperkalemia. Patient has been given Kayexalate, repeat potassium and may be discharged home if potassium is less than 5. Due to hypertension, hyperkalemia and renal failure, patient is being worked up for primary hyperaldosteronism. Will check ACTH, renin and aldosterone levels. 2. Acute kidney injury most likely due to recent lisinopril use. Patient will sent for renal ultrasound with Doppler to rule out renal artery stenosis due to uncontrolled hypertension and acute kidney injury after starting lisinopril. Patient will be given Norvasc 5 mg b.i.d., Hydralazine if needed. 3. Right mhrky-gfm-kwnq amputation, chronic wound on chronic Zyvox which has been resumed. Dr. Ledesma has been consulted for wound care. 4. Acute kidney injury most likely secondary to recent lisinopril use. Renal ultrasound shows no hydronephrosis. Urine output is adequate. No signs of urine retention. Renal ultrasound with Doppler obtained to rule out renal artery stenosis. 5. History of CHF appears to be compensated. Recheck basic metabolic panel. 6. Peripheral vascular disease. Outpatient followup with Dr. Ledesma for chronic right lower extremity gtxbz-jat-lvdp amputation wound. 7. History of DVT, no acute symptoms. 8. BPH, chronic. 9. Type I diabetic, continue on home regimen of insulin. DISPOSITION: May be discharged home today if creatinine is back to baseline at 1.3 or lower and potassium is less than 5. Outpatient followup with Dr. Ledesma for wound care of the right lower extremity stump and primary care physician appointment within five days of discharge or adjust patient's medications to prevent hyperkalemia and renal failure. MTDD
[2020-12-20] MEDS: SLF 3 ML SYR IV SCH ×2 (14:45→20:49)
[2020-12-20] MEDS: SODIUM BICARBONATE 150 MEQ in D5W 1,000 ML IV SCH (15:58)
[2020-12-20 16:57] LABS: CALCIUM LEVEL 8.3 MG/DL (8.8-10.2); CREATININE FOR GFR 1.52 MG/DL (0.70-1.30); GLOMERULAR FILTRATION RATE 49.9 (>49); POTASSIUM SERUM 4.4 MEQ/L (3.5-5.1)
[2020-12-20 20:00] VITALS: BP 155/78
[2020-12-20] MEDS ORDERED: HumaLOG INSULIN (NovoLOG) PER UNIT SC SCH (21:00)
[2020-12-21] MEDS: SODIUM BICARBONATE 150 MEQ in D5W 1,000 ML IV SCH (02:09)
[2020-12-21 04:03] VITALS: BP 142/73
[2020-12-21] MEDS: SLF 3 ML SYR IV SCH (05:08)
[2020-12-21 08:24] VITALS: BP 129/60
[2020-12-21 09:00] VITALS: BP 129/60
[2020-12-21] MEDS ORDERED: ENOXAPARIN 30MG/0.3ML SYRINGE (J1650 PER 10MG) SC SCH (09:00)
[2020-12-21] MEDS: amLODIPine 5 MG TAB PO SCH (09:00)
[2020-12-21] MEDS: DOCUSATE SODIUM 100MG CAPSULE PO SCH (09:00)
[2020-12-21] MEDS: HumaLOG INSULIN (NovoLOG) PER UNIT SC SCH ×2 (09:18→13:37)
[2020-12-21] MEDS: ASPIRIN 81MG ENTERIC TABLET PO SCH (09:19)
[2020-12-21] MEDS: ATORVASTATIN 20 MG TAB PO SCH (09:19)
[2020-12-21] MEDS: PANTOPRAZOLE 40MG TAB (PROTONIX) PO SCH (09:20)
[2020-12-21] MEDS: MULTIVITAMINS/MINERALS THERAP 1 TAB PO SCH (09:20)
[2020-12-21] MEDS: GABAPENTIN 300 MG CAP PO SCH (09:20)
[2020-12-21] MEDS: CLOPIDOGREL 75 MG TAB PO SCH (09:20)
[2020-12-21] MEDS: FINASTERIDE 5 MG TAB PO SCH (09:20)
[2020-12-21] MEDS: predniSONE 5 MG TAB PO SCH (09:21)
[2020-12-21] MEDS: LINEZOLID 600MG TABLET (ZYVOX) PO SCH (09:21)
[2020-12-21] MEDS: predniSONE 1 MG TAB PO SCH (09:21)
[2020-12-21 09:59] LABS: BASO % 0.6 % (0.0-1.0); EOS # 0.1 10^3/uL (0.0-0.5); EOS % 1.5 % (0.0-3.0); HEMATOCRIT 31.6 % (42.0-52.0); HEMOGLOBIN 10.5 g/dl (13.5-17.5); LYMPH % 28.2 % (24.0-44.0); MEAN CORPUSCULAR HEMOGLOBIN 31.4 pg (27.0-33.0); MEAN CORPUSCULAR HGB CONC 33.2 g/dl (32.0-36.5); MEAN CORPUSCULAR VOLUME 94.6 fl (80.0-96.0); MONO # 0.5 10^3/uL (0.0-0.8); NEUTROPHILS # 4.5 10^3/uL (1.5-8.5); NEUTROPHILS % 62.4 % (36.0-66.0); PLATELET COUNT, AUTOMATED 265 10^3/uL (150-450); RED BLOOD COUNT 3.34 10^6/uL (4.30-6.10); WHITE BLOOD COUNT 7.2 10^3/uL (4.0-10.0)
[2020-12-21 10:32] LABS: BLOOD UREA NITROGEN 10 MG/DL (7-18); CALCIUM LEVEL 8.3 MG/DL (8.8-10.2); CARBON DIOXIDE LEVEL 34 MEQ/L (21-32); CHLORIDE LEVEL 99 MEQ/L (98-107); CREATININE FOR GFR 1.29 MG/DL (0.70-1.30); GLOMERULAR FILTRATION RATE > 60.0 (>49); GLUCOSE, FASTING 218 MG/DL (70-100); SODIUM LEVEL 139 MEQ/L (136-145)
--- NOTE | 2020-12-22 13:02 | DS.PDOC ---
Discharge Summary General Date of Admission Dec 19, 2020 at 18:25 Date of Discharge 12/21/2020 Discharge Summary PROCEDURES PERFORMED DURING STAY: [None]. 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 Patient was recently started on lisinopril during the prior hospitalization earlier in December 2020 and it was felt that his RONY and hyperkalemia is related to this. Patient had a renal ultrasound which was negative for any urinary retention, hydronephrosis. He had bilateral renal artery Doppler done which was negative for renal artery stenosis. In view of his history of hypertension hyperkalemia and renal failure there was a thought that he may have a primary hyperaldosteronism so ACTH renin and aldosterone levels were ordered which is still pending. Patient has been referred to cardiology to follow-up on this. RONY and hyperkalemia Likely due to recent introduction of lisinopril with mild dehydration Resolved with stopping the lisinopril and giving IV fluid Hypertension Discontinued lisinopril Increased dose of amlodipine Right stump osteomyelitis Staph epidermidis Diagnosed in December 2020 Continue linezolid still January 22, 2020 ADRENAL INSUFFICIENCY: At home on PREDNISONE 8 MG daily Type I DM w Neuropathy The patient has an insulin pump which he can as per home continue gabapentin. Chronic Anemia hh stable Peripheral vascular disease ASA/plavix Glaucoma Bimatoprost, Brimonidine BPH/hx urinary retention Finasteride and tamsulosin History orthostatic hypotension/Shydrager syndrome Not on any meds Depression celexa HLD statin. DISCHARGE MEDICATIONS: Please see below. ALLERGIES: Please see below. PHYSICAL EXAMINATION ON DISCHARGE: VITAL SIGNS: Please see below. General : the patient is awake, alert and oriented x 3, answering questions appropriately. HEENT: Normocephalic atraumatic moist mucous membranes anicteric eyes Neck no JVD, no thyromegaly, no cervical lymphadenopathy. Lungs: Clear to auscultation, no wheezing, rales or rhonchi. Heart: S1, S2, sinus rhythm. No rub murmur gallop Abdomen: Soft, nontender, nondistended, positive bowel sounds. Extremities: Bilateral BKA. Right BKA has stitches and an open wound without any purulent drainage. There is serosanguineous drainage noted, not malodorous. LABORATORY DATA: Please see below. ACTIVITY: [As tolerated]. DIET: Carb consistent DISPOSITION: Home Health Service. DISCHARGE INSTRUCTIONS: Follow-up with PMD in 1 week Follow-up with cardiology as advised ITEMS TO FOLLOWUP ON ON OUTPATIENT: ACTH renin and aldosterone levels DISCHARGE CONDITION: [Stable]. TIME SPENT ON DISCHARGE: 35 minutes. Vital Signs/I&Os Vital Signs Date Time Temp Pulse Resp B/P (MAP) Pulse Ox O2 Delivery O2 Flow Rate FiO2 12/21/20 09:00 64 129/60 12/21/20 08:24 97.8 18 98 Room Air I&O- Last 24 Hours up to 6 AM 12/22/20 06:00 Intake Total 700 ml Output Total 1300 ml Balance -600 ml Laboratory Data Labs 24H Laboratory Tests 2 12/21/20 13:33: Bedside Glucose (Misc Panel) 329H FSBS Laboratory Tests Test 12/21/20 13:33 Range/Units Bedside Glucose (Misc Panel) 329 80-115 MG/DL Discharge Medications Scheduled Amlodipine Besylate (Norvasc) 5 Mg Tablet, 5 MG PO BID Aripiprazole (Abilify) 5 Mg Tablet, 5 MG PO DAILY, (Reported) Aspirin (Aspirin EC) 81 Mg Tablet.dr, 81 MG PO DAILY, (Reported) Atorvastatin Calcium (Atorvastatin Calcium) 40 Mg Tablet, 40 MG PO DAILY, (Reported) Citalopram Hydrobromide (Citalopram HBr) 40 Mg Tablet, 40 MG PO DAILY, (Reported) Clopidogrel Bisulfate (Plavix) 75 Mg Tablet, 75 MG PO DAILY, (Reported) Ferrous Sulfate (Ferrous Sulfate) 325 Mg Tab, 325 MG PO QWEEK, (Reported) SUNDAY Finasteride (Finasteride) 5 Mg Tablet, 5 MG PO DAILY, (Reported) Gabapentin (Gabapentin) 300 Mg Capsule, 300 MG PO BID, (Reported) Insulin Human Lispro (Novolog) 100 Unit/1 Ml Vial, 1 DOSE SC ASDIRECTED, (Repor willard) UP TO 100 UNITS DAILY CONTINUOUS THROUGH INSULIN PUMP Linezolid (Linezolid) 600 Mg Tablet, 600 MG PO BID, (Reported) Multivitamins (Thera M Plus Tablet) 1 Each Tablet, 1 TAB PO DAILY, (Reported) Pantoprazole Sodium (Pantoprazole Sodium) 40 Mg Tablet.dr, 40 MG PO BID, (Reported) Prednisone (Prednisone) 1 Mg Tablet, 3 MG PO DAILY, (Reported) TAKES WITH 5MG FOR 8MG TOTAL Prednisone (Prednisone) 5 Mg Tablet, 5 MG PO DAILY, (Reported) TAKE WITH 3MG FOR 8MG TOTAL Scheduled PRN Docusate Sodium (Stool Softener) 100 Mg Capsule, 100 MG PO DAILY PRN for CONSTIPATION, (Reported) Glucagon,Human Recombinant (Glucagon Emergency Kit) 1 Mg Vial, 1 MG IM ASDIRECTE D PRN for LOW BLOOD SUGAR, (Reported) Allergies Coded Allergies: No Known Allergies (Unverified , 03/01/20) Tamar Granados MD Dec 22, 2020 13:02
[2020-12-27 13:07] LABS: ADRENOCORTICOTROPHIC HORMONE 1.7 pg/mL (7.2-63.3)
== END 2020-12-21 14:45 | disposition home health service (06) ==
LOC: M ED 18:24 → M ED INP 18:25 → M PCU 12-20 03:19
PROVIDERS: ADMIT Internal Medicine; ATTEND Internal Medicine
DX: N17.9 Acute kidney failure, unspecified (principal); E87.5 Hyperkalemia; R53.1 Weakness; I11.9 Hypertensive heart disease without heart failure; I73.9 Peripheral vascular disease, unspecified; E10.9 Type 1 diabetes mellitus without complications; I50.9 Heart failure, unspecified; E78.2 Mixed hyperlipidemia; K21.9 Gastro-esophageal reflux disease without esophagitis; N40.0 Benign prostatic hyperplasia without lower urinary tract symptoms; Z89.511 Acquired absence of right leg below knee; Z89.512 Acquired absence of left leg below knee; Z79.01 Long term (current) use of anticoagulants; Z87.891 Personal history of nicotine dependence; E66.9 Obesity, unspecified; Z79.82 Long term (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; Z79.4 Long term (current) use of insulin; Z79.52 Long term (current) use of systemic steroids
CPT/HCPCS: 36415; 71045; 76775; 80048; 80076; 81001; 82010; 82024; 82088; 82550; 82553; 83036; 83690; 83735; 83880; 83930; 84244; 84484; 85025; 85027; 87631; 90682; 93005; 93041; 93975; 94760; 96361; 96372; 96374; 96375; 99285; G0008; G0378; J0610; J1650; J7512

== ENCOUNTER → 2020-12-31 | Outpatient (CLI) | payer MEDICARE, MEDICAID ==
[~2020-12-31] MED LIST changes: +MM S100C PO; +NORV5TAB PO; +SELF1KIT MC
[2020-12-31 15:37] LABS: CALCIUM LEVEL 8.6 MG/DL (8.8-10.2); CREATININE FOR GFR 1.53 MG/DL (0.70-1.30); GLOMERULAR FILTRATION RATE 49.5 (>49); POTASSIUM SERUM 4.9 MEQ/L (3.5-5.1)
== END ==
LOC: M LAB 14:21
PROVIDERS: ATTEND Student in an Organized Health Care Education/Training Program
DX: E87.5 Hyperkalemia (principal)

== ENCOUNTER 2021-01-02 13:30 | Emergency (ER) | payer MEDICARE, MEDICAID ==
[~2021-01-02] VITALS: Ht 127 cm; Wt 69.0 kg
[2021-01-02] MEDS ORDERED: NS 1,000 ML IV ONE (13:40)
[2021-01-02] MEDS ORDERED: ONDANSETRON 4MG/2ML VIAL IV ONE (13:40)
--- NOTE | 2021-01-02 14:15 | REP ---
INDICATION: DKA. COMPARISON: December 20, 2020. TECHNIQUE: Portable upright AP chest radiograph. FINDINGS: EKG electrodes are seen. The lungs are symmetrically aerated and free of infiltrate. The pleural angles are sharp. Heart size is normal. No significant bony abnormality. IMPRESSION: No active disease. <Electronically signed by Dex Pichardo > 01/02/21 [id number]
[2021-01-02 14:36] LABS: VENOUS BASE EXCESS 2.5 (-2.0-2.0); VENOUS HCO3 26.3 MEQ/L (23.0-27.0); VENOUS O2 SATURATION 89.4 % (60.0-80.0); VENOUS PARTIAL PRESSURE CO2 37.7 mmHg (38.0-50.0); VENOUS PARTIAL PRESSURE O2 53.6 mmHg (30.0-50.0); VENOUS PH 7.462 UNITS (7.330-7.430); VENOUS STANDARD HCO3 26.6 MEQ/L; VENOUS TOTAL CO2 27.5 MEQ/L (24.0-28.0)
[2021-01-02 14:43] LABS: BASO % 0.2 % (0.0-1.0); EOS # 0.1 10^3/uL (0.0-0.5); EOS % 1.4 % (0.0-3.0); HEMATOCRIT 29.8 % (42.0-52.0); HEMOGLOBIN 10.3 g/dl (13.5-17.5); LYMPH # 1.3 10^3/uL (1.5-5.0); LYMPH % 21.8 % (24.0-44.0); MEAN CORPUSCULAR HEMOGLOBIN 31.1 pg (27.0-33.0); MEAN CORPUSCULAR HGB CONC 34.6 g/dl (32.0-36.5); MONO # 0.6 10^3/uL (0.0-0.8); MONO % 10.5 % (2.0-8.0); NEUTROPHILS # 3.9 10^3/uL (1.5-8.5); NEUTROPHILS % 65.8 % (36.0-66.0); PLATELET COUNT, AUTOMATED 148 10^3/uL (150-450); RED BLOOD COUNT 3.31 10^6/uL (4.30-6.10); WHITE BLOOD COUNT 5.9 10^3/uL (4.0-10.0)
[2021-01-02 15:11] LABS: HEMOGLOBIN A1c 7.5 %
[2021-01-02 15:22] LABS: OSMOLALITY SERUM 284 MOSM/KG (280-301)
[2021-01-02 15:24] LABS: BLOOD UREA NITROGEN 24 MG/DL (7-18); CREATININE FOR GFR 1.73 MG/DL (0.70-1.30); GLUCOSE, FASTING 136 MG/DL (70-100); SODIUM LEVEL 139 MEQ/L (136-145)
[2021-01-02 15:25] LABS: ALBUMIN 3.3 GM/DL (3.2-5.2); ALT/SGPT 27 U/L (12-78); BILIRUBIN,DIRECT 0.2 MG/DL (0.0-0.2); BILIRUBIN,TOTAL 0.4 MG/DL (0.2-1.0); CALCIUM LEVEL 8.7 MG/DL (8.8-10.2); CARBON DIOXIDE LEVEL 28 MEQ/L (21-32); CHLORIDE LEVEL 102 MEQ/L (98-107); CK-MB VALUE MASS 1.7 NG/ML (<3.6); CPK CREATINE PHOSPHOKINASE 108 U/L (39-308); ETHYL ALCOHOL (ETHANOL) < 0.003 % (0.000-0.010); LIPASE 39 U/L (73-393); MB/CK RELATIVE INDEX 1.57 (< OR =4); TOTAL PROTEIN 6.5 GM/DL (6.4-8.2); TROPONIN I < 0.02 NG/ML (< 0.10)
[2021-01-02 18:45] VITALS: BP 124/61
--- NOTE | 2021-01-02 20:44 | ECGEPIP ---
[facility] - ED Test Date: 2021-01-02 Pat Name: SEBASTIEN GARCIA Department: Room: - Gender: Male Health Analyst: LR : 1960 Requested By: MARIA GUADALUPE Batista Order Number: [id number] Reading MD: Lobito Armstrong Measurements Intervals [place] Rate: 108 P: 55 HI: 122 QRS: 42 QRSD: 78 T: -2 QT: 322 QTc: 431 Interpretive Statements Sinus tachycardia BASELINE ARTIFACT AFFECTS INTERPRETATION Electronically Signed on 01-02-2021 20:43:53 EDT by Lobito Armstrong
== END 2021-01-02 20:20 | disposition home or self-care (01) ==
LOC: M ED 13:30 → EDBD 13:30 → M ED 20:20
DX: E10.649 Type 1 diabetes mellitus with hypoglycemia without coma (principal); R00.0 Tachycardia, unspecified; I11.0 Hypertensive heart disease with heart failure; E78.5 Hyperlipidemia, unspecified; Z86.718 Personal history of other venous thrombosis and embolism; Z79.82 Long term (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; Z79.899 Other long term (current) drug therapy
CPT/HCPCS: 71045; 80048; 80076; 81001; 82077; 82550; 82553; 82803; 83036; 83690; 83930; 84484; 85025; 87040; 87798; 93005; 93041; 94760; 96361; 96374; 99285; J2405

== ENCOUNTER → 2021-01-06 | Outpatient (CLI) | payer MEDICARE, MEDICAID ==
[2021-01-06 18:26] LABS: HEMATOCRIT 27.9 % (42.0-52.0); HEMOGLOBIN 9.5 g/dl (13.5-17.5); MEAN CORPUSCULAR HEMOGLOBIN 31.5 pg (27.0-33.0); MEAN CORPUSCULAR HGB CONC 34.1 g/dl (32.0-36.5); MEAN CORPUSCULAR VOLUME 92.4 fl (80.0-96.0); PLATELET COUNT, AUTOMATED 130 10^3/uL (150-450); RED BLOOD COUNT 3.02 10^6/uL (4.30-6.10); WHITE BLOOD COUNT 4.7 10^3/uL (4.0-10.0)
== END ==
LOC: M LAB 15:07
PROVIDERS: ATTEND Internal Medicine
DX: M86.9 Osteomyelitis, unspecified (principal)

== ENCOUNTER 2021-01-10 05:25 | Inpatient (IN) | payer MEDICARE, MEDICAID ==
[2021-01-10] VITALS (11 sets, daily range): BP systolic 120–197; BP diastolic 56–93
[~2021-01-10] VITALS: Ht 162.6 cm; Wt 69.2 kg
[2021-01-10] MEDS ORDERED: DEXTROSE 50% 50 ML SYRINGE As Ordered ONE (05:56)
[2021-01-10] MEDS ORDERED: D5W/0.45% SODIUM CHLORIDE 1,000 ML IV SCH (06:00)
[2021-01-10] MEDS ORDERED: METOCLOPRAMIDE INJ 10MG/2ML VIAL (J2765 PER 1) IV ONE (06:00)
[2021-01-10 07:03] LABS: RSV AMPLIFICATION NEGATIVE (NEGATIVE)
[2021-01-10] MEDS ORDERED: ONDANSETRON 4MG/2ML VIAL IV ONE (07:45)
[2021-01-10] MEDS ORDERED: ACETAMINOPHEN TAB 650MG DOSE (2X325MG) PO ONE (08:05)
--- NOTE | 2021-01-10 08:05 | REP ---
INDICATION: hypoglycemia COMPARISON: 01/02/2021 TECHNIQUE: Portable AP view of the chest FINDINGS: The mediastinum and cardiac silhouette are stable and within normal limits for portable technique. The lung rebolledo are clear without acute consolidation, effusion, or pneumothorax. Skeletal structures are intact. IMPRESSION: No acute cardiopulmonary process appreciated. <Electronically signed by Sandeep Patino > 01/10/21 0836
[2021-01-10 08:10] LABS: BASO % 0.1 % (0.0-1.0); EOS % 0.1 % (0.0-3.0); HEMATOCRIT 21.5 % (42.0-52.0); HEMOGLOBIN 7.5 g/dl (13.5-17.5); LYMPH # 0.6 10^3/uL (1.5-5.0); LYMPH % 7.6 % (24.0-44.0); MEAN CORPUSCULAR HEMOGLOBIN 31.3 pg (27.0-33.0); MEAN CORPUSCULAR HGB CONC 34.9 g/dl (32.0-36.5); MEAN CORPUSCULAR VOLUME 89.6 fl (80.0-96.0); MONO # 0.8 10^3/uL (0.0-0.8); MONO % 9.7 % (2.0-8.0); NEUTROPHILS # 6.9 10^3/uL (1.5-8.5); PLATELET COUNT, AUTOMATED 127 10^3/uL (150-450); WHITE BLOOD COUNT 8.4 10^3/uL (4.0-10.0)
[2021-01-10] MEDS ORDERED: LIDOCAINE 1% MDV 20ML VIAL As Ordered ONE (08:17)
[2021-01-10] MEDS ORDERED: LIDOCAINE 1% MDV 20ML VIAL IM ONE (08:20)
[2021-01-10] MEDS ORDERED: NS 1,000 ML IV ONE (08:35)
[2021-01-10 08:39] LABS: ALBUMIN 2.8 GM/DL (3.2-5.2); ALT/SGPT 27 U/L (12-78); BILIRUBIN,DIRECT 0.2 MG/DL (0.0-0.2); BILIRUBIN,TOTAL 0.5 MG/DL (0.2-1.0); BLOOD UREA NITROGEN 13 MG/DL (7-18); CALCIUM LEVEL 8.5 MG/DL (8.8-10.2); CARBON DIOXIDE LEVEL 24 MEQ/L (21-32); CHLORIDE LEVEL 102 MEQ/L (98-107); CK-MB VALUE MASS 1.3 NG/ML (<3.6); CPK CREATINE PHOSPHOKINASE 80 U/L (39-308); GLOMERULAR FILTRATION RATE 54.8 (>49); GLUCOSE, FASTING 286 MG/DL (70-100); LIPASE 27 U/L (73-393); MB/CK RELATIVE INDEX 1.62 (< OR =4); POTASSIUM SERUM 4.8 MEQ/L (3.5-5.1); SODIUM LEVEL 137 MEQ/L (136-145); TOTAL PROTEIN 5.6 GM/DL (6.4-8.2); TROPONIN I < 0.02 NG/ML (< 0.10)
--- NOTE | 2021-01-10 08:48 | REP ---
INDICATION: stat central line COMPARISON: 01/10/2021 at 7:46 a.m. TECHNIQUE: Portable AP view of the chest FINDINGS: Left subclavian catheter with tip in the SVC. Mediastinum and cardiac silhouette stable. Lung rebolledo are unchanged. No focal consolidation, effusion, or pneumothorax. Skeletal structures are intact. IMPRESSION: Left subclavian catheter with tip in the SVC. No pneumothorax. No obvious focal consolidation or effusion. <Electronically signed by Sandeep Patino > 01/10/21 [id number]
[2021-01-10] MEDS ORDERED: PIPERACILLIN/TAZOBACTAM SOD 4.5 GM in D5W MINI-BAG PLUS 50 ML IV ONE (08:50)
[2021-01-10] MEDS ORDERED: PANTOPRAZOLE 40MG VIAL (C9113 PER 1) IV ONE (08:50)
--- NOTE | 2021-01-10 08:51 | RO ---
OPERATIVE NOTE DATE OF OPERATION: 01/10/2021 PREOPERATIVE DIAGNOSIS: Need for vascular access, diabetic ketoacidosis. POSTOPERATIVE DIAGNOSIS: Need for vascular access, diabetic ketoacidosis. PROCEDURE: Insertion of left subclavian central line. SURGEON: YOEL NAVARRO M.D. DESCRIPTION OF PROCEDURE: The patient was prepped and draped in the usual sterile fashion over the left midclavicular fossa. The fossa was infiltrated with 1% Lidocaine. The subclavian was then found on the first pass and a wire was placed without difficulty. The tract was dilated and a triple lumen catheter was placed. Ports were aspirated and flushed and flowed freely. The catheter was secured to the chest wall with 2-0 silk suture. The patient tolerated the procedure well. A chest x-ray is pending.
[2021-01-10 09:07] LABS: VENOUS BASE EXCESS -2.7 (-2.0-2.0); VENOUS HCO3 20.7 MEQ/L (23.0-27.0); VENOUS O2 SATURATION 98.9 % (60.0-80.0); VENOUS PARTIAL PRESSURE CO2 29.8 mmHg (38.0-50.0); VENOUS PARTIAL PRESSURE O2 170.8 mmHg (30.0-50.0); VENOUS STANDARD HCO3 22.2 MEQ/L; VENOUS TOTAL CO2 21.6 MEQ/L (24.0-28.0)
[2021-01-10] MEDS ORDERED: ISOVUE-370 76% 100ML VIAL As Ordered ONE (09:23)
--- NOTE | 2021-01-10 09:59 | REP ---
INDICATION: abdominal pain, vomiting bloood. COMPARISON: 12/08/2020 TECHNIQUE: Axial contrast-enhanced images from the lung bases to the pubic symphysis using 100 cc Isovue 370 intravenous contrast material. Coronal and sagittal reformations obtained. This CT examination was performed using the following dose reduction techniques: Automated exposure control, adjustment of mA and/or kv according to the patient's size, and the use of iterative reconstruction technique. FINDINGS: Liver, spleen, pancreas, gallbladder, and bilateral adrenal glands are normal. Kidneys again demonstrate bilateral nonobstructing nephroliths up to 7 mm without acute perinephric stranding, hydroureteronephrosis or obstructing ureteral calculus. Hiatal hernia at the gastroesophageal junction noted. No evidence for bowel obstruction or acute inflammatory process. Sigmoid diverticula noted without acute diverticulitis.. Pelvis demonstrates normal bladder and age-appropriate prostate/seminal vesicles. No ascites. No free air. No intraperitoneal or retroperitoneal adenopathy. Abdominal aorta demonstrates atherosclerotic changes without aneurysm or dissection.. Musculoskeletal structures demonstrate degenerative changes without acute process. IMPRESSION: No acute abdominopelvic pathology appreciated. Bilateral nephrolithiasis. Diverticulosis without acute diverticulitis. <Electronically signed by Sandeep Patino > 01/10/21 0931
[2021-01-10] MEDS ORDERED: GLUCAGON INJ 1MG VIAL SC PRN (10:30)
[2021-01-10] MEDS ORDERED: GLUCOSE 4GM CHEW TABLET PO PRN (10:30)
[2021-01-10] MEDS ORDERED: DEXTROSE 50% 50 ML SYRINGE IV PRN (10:30)
--- NOTE | 2021-01-10 11:00 | HPEPDOC ---
[facility] Medical History & Physical Date of Admission Jan 10, 2021 Date of Service: Jan 10, 2021 History and Physical Chief complaint: Who presented to the emergency room with reported glucose problems History of present illness: Patient is a 60-year-old male who presented to the emergency room with complaints of glucose problems. Patient notes that this has been an ongoing problem for the last 5 days. He is a Type I diabetic and uses an insulin pump. Patient reports that over the last 5 days he has been experiencing nausea and vomiting with multiple episodes of vomiting throughout the day. Most recent vomiting episode was in the emergency room with blood noted in the vomitus. Patient reports associated upper abdominal pain, reported right at the epigastrium. Reports the pain as 8/10 continuous, non-radiating without any alleviating or elevating factors. Patient reports his last meal was several days ago. Denies any chest pain, short of breath, cough or palpitations. Denies any constipation or diarrhea. Reports her last bowel movement was 2 days ago with brown colored stool. Denies any urinary discomfort. Patient denies any fevers but does report chills while at home. Reports a poor appetite currently and denies any changes in his weight. In the ER, providers had contacted cardiothoracic surgery for placement of a left subclavian catheter is of poor access. Past Medical History: Diastolic CHF PVD s/p Angioplasty (s/p Bilateral BKA) DLP IDDM1 Hx of DVT BPH Recent R sump osteomyelitis (s/p antibiotics; Scheduled for surgery with Dr. Mesa) GERD Past Surgical History: Bilateral cataract extraction Bilateral lower extreme any angiographies Right lndoi-byj-lsbm of irritation Left xlsqq-xpc-luge mutation Left rotator cuff surgery Allergies: See below Medications: See below Family History: - Reviewed and noncontributory Social History: - Patient denies the use of alcohol. 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 Review of Systems: 10 point review of systems complete, all negative otherwise stated in HPI Physical exam: - Vitals: BP [161/71], HR [99], RR [18], Sat [99%RA], Temp [99.5F] - General: Lying in bed, No acute distress, Speaking in full sentences, AAOx3 - HEENT: NC, AT, PERRLA, EOMI - CVS: Tachycardic, +S1S2, - Murmurs / rubs / gallops - Lungs: Fair air entry bilaterally, No appreciable wheezing / rales / rhonchi - Abdomen: Soft, Non-distended, epigastric tenderness - Extremities: Bilateral BKA, R stump with white drainage noted / no tenderness - Neuro: No focal motor or sensory deficit - Skin: No visible rashes Labs: See below Imaging: ECHO 12/07/2020: 1. Study is of acceptable technical quality, underlying sinus rhythm. 2. Normal LV size and systolic function, grade 1 diastolic dysfunction. 3. Prominent aortic sclerotic, but only trivial stenosis and no insufficiency. 4. Competent mitral valve. 5. Mild tricuspid insufficiency. 6. Normal central venous pressure and likely mild pulmonary hypertension. CXR 01/10: No acute cardiopulmonary process appreciated. CXR 01/10: Left subclavian catheter with tip in the SVC. No pneumothorax. No obvious focal consolidation or effusion. CT abdomen / pelvis 01/10: No acute abdominopelvic pathology appreciated. Bilateral nephrolithiasis. Diverticulosis without acute diverticulitis. EKG: See below Assessment and Plan: Acute blood loss anemia - possibly 2/2 Upper GI bleed - Patient reports nausea, vomiting, abdominal pain for the last 5 days - Currently patient is hemodynamically stable - Hemoglobin appears to be lower than baseline; ~ by 2 units - Patient has been typed and screened - Will c/w Telemetry monitoring - Will transfuse 2 units PRBC - Will hold Plavix; c/w ASA 81 - Will start Protonix / Carafate / Will remain NPO - Consulted GI; case discussed with Dr. Velazquez Lactic acidosis - Will change fluids for Normal saline - Will repeat within 4 hours Nausea / Vomiting - possibly 2/2 above - Lab work does not reveal any evidence of DKA - Will start Zofran PRN IDDM1 with hypoglycemia - Patient uses an insulin pump at home - Will discontinue insulin pump - Will start ISS; will likely need to add long acting insulin within 24 hours Questionable CKD - Cr 1.1 to 1.4 - Cr appears to be at baseline Diastolic CHF - No evidence of exacerbation - Prior EHCO noted above - Will hold PVD s/p Angioplasty - s/p Bilateral BKA - Patient has had a recent admission for R sump osteomyelitis with Staph Epidermidis - Has been on Linezolid as an outpatient (instructions to stop antibiotics on 01/20/2021); however had stopped sooner - Scheduled for surgery with Dr. Mesa - Will check blood cultures / Procalcitonin / ESR / CRP - s/p Zosyn in the ER - c/w ASA; Will hold Plavix (re: GI bleed) - Discussed with vascular surgery, Dr. Jones - will evaluate later day, but will hold additional antibiotics - Will consult advanced wound care; Dr. 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 Hx of COVID19 infection - Currently saturating well on room air - Diagnosed 04/2020 Depression - c/w Aripiprazole / Citalopram Glaucoma GERD - See above DVT prophylaxis - Will start TEDs/Sequentials Disposition: - Anticipate 2 midnight stay - Pending clinical improvement Vital Signs Vital Signs Date Time Temp Pulse Resp B/P (MAP) Pulse Ox O2 Delivery O2 Flow Rate FiO2 01/10/21 09:45 99.5 99 161/71 (101) 01/10/21 09:15 18 99 01/10/21 07:15 Room Air Laboratory Data Labs 24H Laboratory Tests 2 01/10/21 05:56: Bedside Glucose (Misc Panel) 136H 01/10/21 06:21: Coronavirus (COVID-19)(PCR) NEGATIVE, Influenza Type A (RT-PCR) NEGATIVE, Influe nza Type B (RT-PCR) NEGATIVE, Respiratory Syncytial Virus (PCR) NEGATIVE 01/10/21 06:58: Bedside Glucose (Misc Panel) 232H 01/10/21 07:56: Immature Granulocyte % (Auto) 0.5, Neutrophils (%) (Auto) 82.0H, Lymphocytes (%) (Auto) 7.6L, Monocytes (%) (Auto) 9.7H, Eosinophils (%) (Auto) 0.1, Basophils (%) (Auto) 0.1, Neutrophils # (Auto) 6.9, Lymphocytes # (Auto) 0.6L, Monocytes # (Auto) 0.8, Eosinophils # (Auto) 0.0, Basophils # (Auto) 0.0, Nucleated Red Bl ood Cells % (auto) 0.0, Anion Gap 11, Glomerular Filtration Rate 54.8, Lactic Acid Level 4.8*H, Calcium Level 8.5L, Total Bilirubin 0.5, Direct Bilirubin 0.2, Aspartate Amino Transf (AST/SGOT) 22, Alanine Aminotransferase (ALT/SGPT) 27, Alkaline Phosphatase 66, Total Creatine Kinase 80, Creatine Kinase MB 1.3, Creatine Kinase MB Relative Index 1.62, Troponin I < 0.02, Total Protein 5.6L, Albumin 2.8L, Albumin/Globulin Ratio 1.0, Lipase 27L 01/10/21 08:58: Blood Gas Bicarbonate Standard 22.2, Venous Blood pH 7.460H, Venous Blood Partial Pressure CO2 29.8L, Venous Blood Partial Pressure O2 170.8H, Venous Blood Total Carbon Dioxide 21.6L, Venous Blood HCO3 20.7L, Venous Blood Oxygen Saturation 98.9H, Venous Blood Base Excess -2.7L 01/10/21 10:29: Bedside Glucose (Misc Panel) 242H CBC/BMP Laboratory Tests 01/10/21 07:56 Microbiology Microbiology 01/10/21 Blood Culture, Received Pending 01/10/21 Blood Culture, Received Pending Home Medications Scheduled Amlodipine Besylate (Norvasc) 5 Mg Tablet, 5 MG PO BID Aripiprazole (Abilify) 5 Mg Tablet, 5 MG PO DAILY Aspirin (Aspirin EC) 81 Mg Tablet.dr, 81 MG PO DAILY Atorvastatin Calcium (Atorvastatin Calcium) 40 Mg Tablet, 40 MG PO DAILY Citalopram Hydrobromide (Citalopram HBr) 40 Mg Tablet, 40 MG PO DAILY Clopidogrel Bisulfate (Plavix) 75 Mg Tablet, 75 MG PO DAILY Ferrous Sulfate (Ferrous Sulfate) 325 Mg Tab, 325 MG PO QWEEK SUNDAY Finasteride (Finasteride) 5 Mg Tablet, 5 MG PO DAILY Gabapentin (Gabapentin) 300 Mg Capsule, 300 MG PO BID Insulin Human Lispro (Novolog) 100 Unit/1 Ml Vial, 1 DOSE SC ASDIRECTED SLIDING SCALE. UP TO 100 UNITS DAILY CONTINUOUS THROUGH INSULIN PUMP Linezolid (Linezolid) 600 Mg Tablet, 600 MG PO BID Multivitamins (Thera M Plus Tablet) 1 Each Tablet, 1 TAB PO DAILY Pantoprazole Sodium (Pantoprazole Sodium) 40 Mg Tablet.dr, 40 MG PO BID Prednisone (Prednisone) 1 Mg Tablet, 3 MG PO DAILY TAKES WITH 5MG FOR 8MG TOTAL Prednisone (Prednisone) 5 Mg Tablet, 5 MG PO DAILY TAKE WITH 3MG FOR 8MG TOTAL Scheduled PRN Docusate Sodium (Stool Softener) 100 Mg Capsule, 100 MG PO DAILY PRN for CONSTIPATION Glucagon,Human Recombinant (Glucagon Emergency Kit) 1 Mg Vial, 1 MG IM ASDIRECTED PRN for LOW BLOOD SUGAR Allergies Coded Allergies: No Known Allergies (Unverified , 03/01/20) JOAN POLK MD Jan 10, 2021 11:00
[2021-01-10] MEDS ORDERED: NORV5TAB PO (11:16)
[2021-01-10] MEDS ORDERED: HOME MED LIST COMPLETE! XX SCH (11:20)
[2021-01-10] MEDS: NS 1,000 ML IV SCH ×2 (11:38→21:25)
[2021-01-10] MEDS ORDERED: ACETAMINOPHEN TAB 650MG DOSE (2X325MG) PO PRN (12:00)
[2021-01-10] MEDS ORDERED: DOCUSATE SODIUM 100MG CAPSULE PO PRN (12:30)
--- NOTE | 2021-01-10 12:54 | IPNPDOC ---
Text Note Date of Service The patient was seen on 01/10/21 at 12:30 PM. NOTE The patient is a 60-year-old male with known peripheral vascular disease, with type 1 diabetes, on insulin pump, hospitalized with nausea, vomiting- hematemesis, and severe weakness. He was also noted to have severe anemia, and is being transfused blood. He has a history of bilateral nephrolithiasis, and had similar episodes in the past. The patient was recently seen in the vascular surgery clinic(last week), for right below-knee amputated stump wound, which had some necrotic slough, and was scheduled to have excisional debridement of the stump wound on 01/12/2021, as a same-day procedure. There was no evidence of infection. The patient denies any significant fever, chills, or rigors. On examination: The patient is arousable, weak, appropriately responsive. Vital signs listed below. Relevant labs and imaging noted. Hemoglobin [address] scan of the abdomen and pelvis revealed bilateral nephrolithiasis, and no acute findings. Impression: Patient admitted with possible hematemesis, and severe anemia. He has type 1 diabetes mellitus, and history of labile blood sugars and blood pressures. He also has history of severe peripheral arterial disease, and had bilateral below- knee amputations. Right below-knee amputation stump has a wound, with some necrotic slough however no infection. Plan: Investigate cause of anemia, correction of fluid and electrolyte imbalance. Supportive care Will proceed with right BKA wound debridement on 01/12/2021, if he is medically stable by then. Discussed plan of care, with the patient and with Dr. Kearney-hospitalist Linda ELIZABETH, I+O Linda ELIZABETH, I+O Laboratory Tests 01/10/21 07:56 Vital Signs Date Time Temp Pulse Resp B/P (MAP) Pulse Ox O2 Delivery O2 Flow Rate FiO2 01/10/21 11:45 99.0 88 18 176/77 Room Air 01/10/21 11:30 98 Anais Jones MD Jan 10, 2021 12:54
[2021-01-10] MEDS: ASPIRIN 81MG ENTERIC TABLET PO SCH (14:44)
[2021-01-10] MEDS: HumaLOG INSULIN (NovoLOG) PER UNIT SC SCH ×2 (14:44→18:49)
[2021-01-10] MEDS: SUCRALFATE SUSP 1GM/10ML UD PO SCH ×3 (14:45→21:22)
[2021-01-10] MEDS: CitaloPRAM (CeleXA) 20 MG TAB PO SCH (14:46)
[2021-01-10] MEDS: FERROUS SULFATE 325MG TAB PO SCH (14:46)
[2021-01-10] MEDS: GABAPENTIN 300 MG CAP PO SCH ×2 (14:46→21:22)
[2021-01-10] MEDS: predniSONE 1 MG TAB PO SCH (14:46)
[2021-01-10] MEDS: amLODIPine 5 MG TAB PO SCH ×2 (14:47→21:22)
[2021-01-10] MEDS: ATORVASTATIN 20 MG TAB PO SCH (14:48)
[2021-01-10] MEDS: FINASTERIDE 5 MG TAB PO SCH (14:48)
[2021-01-10] MEDS: MULTIVITAMINS/MINERALS THERAP 1 TAB PO SCH (14:48)
[2021-01-10] MEDS: predniSONE 5 MG TAB PO SCH (14:49)
[2021-01-10] MEDS: ONDANSETRON 4MG/2ML VIAL IV PRN (15:54)
[2021-01-10 21:16] LABS: BASO % 0.1 % (0.0-1.0); HEMATOCRIT 30.1 % (42.0-52.0); LYMPH # 0.7 10^3/uL (1.5-5.0); MEAN CORPUSCULAR HEMOGLOBIN 30.5 pg (27.0-33.0); MEAN CORPUSCULAR HGB CONC 35.2 g/dl (32.0-36.5); MEAN CORPUSCULAR VOLUME 86.7 fl (80.0-96.0); MONO # 0.6 10^3/uL (0.0-0.8); MONO % 7.4 % (2.0-8.0); NEUTROPHILS # 6.3 10^3/uL (1.5-8.5); NEUTROPHILS % 83.2 % (36.0-66.0); PLATELET COUNT, AUTOMATED 123 10^3/uL (150-450); RED BLOOD COUNT 3.47 10^6/uL (4.30-6.10); WHITE BLOOD COUNT 7.6 10^3/uL (4.0-10.0)
[2021-01-10] MEDS: PANTOPRAZOLE 40MG VIAL (C9113 PER 1) IV SCH (21:21)
[2021-01-10 21:27] LABS: HEMOGLOBIN 10.6 g/dl (13.5-17.5)
[2021-01-10 21:38] LABS: BLOOD UREA NITROGEN 10 MG/DL (7-18); CALCIUM LEVEL 8.1 MG/DL (8.8-10.2); CARBON DIOXIDE LEVEL 29 MEQ/L (21-32); CHLORIDE LEVEL 102 MEQ/L (98-107); CREATININE FOR GFR 1.25 MG/DL (0.70-1.30); GLOMERULAR FILTRATION RATE > 60.0 (>49); GLUCOSE, FASTING 141 MG/DL (70-100); MAGNESIUM LEVEL 1.9 MG/DL (1.8-2.4); POTASSIUM SERUM 4.5 MEQ/L (3.5-5.1); SODIUM LEVEL 135 MEQ/L (136-145)
[2021-01-11] VITALS: BP 139/64
[2021-01-11] MEDS: HumaLOG INSULIN (NovoLOG) PER UNIT SC SCH ×4 (00:56→18:48)
[2021-01-11 04:00] VITALS: BP 136/63
[2021-01-11 04:40] LABS: BASO % 0.1 % (0.0-1.0); EOS % 0.3 % (0.0-3.0); HEMOGLOBIN 9.7 g/dl (13.5-17.5); LYMPH # 1.5 10^3/uL (1.5-5.0); LYMPH % 21.4 % (24.0-44.0); MEAN CORPUSCULAR HEMOGLOBIN 30.6 pg (27.0-33.0); MEAN CORPUSCULAR HGB CONC 34.6 g/dl (32.0-36.5); MEAN CORPUSCULAR VOLUME 88.3 fl (80.0-96.0); MONO % 13.5 % (2.0-8.0); NEUTROPHILS # 4.5 10^3/uL (1.5-8.5); NEUTROPHILS % 64.4 % (36.0-66.0); PLATELET COUNT, AUTOMATED 118 10^3/uL (150-450); RED BLOOD COUNT 3.17 10^6/uL (4.30-6.10); WHITE BLOOD COUNT 7.1 10^3/uL (4.0-10.0)
[2021-01-11 05:01] LABS: BLOOD UREA NITROGEN 9 MG/DL (7-18); CALCIUM LEVEL 8.2 MG/DL (8.8-10.2); CARBON DIOXIDE LEVEL 28 MEQ/L (21-32); CHLORIDE LEVEL 105 MEQ/L (98-107); CREATININE FOR GFR 1.12 MG/DL (0.70-1.30); GLOMERULAR FILTRATION RATE > 60.0 (>49); GLUCOSE, FASTING 144 MG/DL (70-100); MAGNESIUM LEVEL 1.8 MG/DL (1.8-2.4); POTASSIUM SERUM 4.2 MEQ/L (3.5-5.1); SODIUM LEVEL 137 MEQ/L (136-145)
[2021-01-11] MEDS: NS 1,000 ML IV SCH (06:45)
[2021-01-11 08:00] VITALS: BP 128/59
[2021-01-11] MEDS: PANTOPRAZOLE 40MG VIAL (C9113 PER 1) IV SCH ×2 (08:17→20:22)
[2021-01-11] MEDS: CitaloPRAM (CeleXA) 20 MG TAB PO SCH (08:18)
[2021-01-11] MEDS: ASPIRIN 81MG ENTERIC TABLET PO SCH (08:18)
[2021-01-11] MEDS: ATORVASTATIN 20 MG TAB PO SCH (08:18)
[2021-01-11] MEDS: predniSONE 1 MG TAB PO SCH (08:18)
[2021-01-11] MEDS: SUCRALFATE SUSP 1GM/10ML UD PO SCH ×4 (08:18→20:22)
[2021-01-11] MEDS: predniSONE 5 MG TAB PO SCH (08:19)
[2021-01-11] MEDS: GABAPENTIN 300 MG CAP PO SCH ×2 (08:19→20:22)
[2021-01-11] MEDS: FINASTERIDE 5 MG TAB PO SCH (08:19)
[2021-01-11] MEDS: MULTIVITAMINS/MINERALS THERAP 1 TAB PO SCH (08:19)
[2021-01-11] MEDS: amLODIPine 5 MG TAB PO SCH ×2 (08:19→20:23)
[2021-01-11] MEDS: LEVEMIR (INSULIN DETEMIR) 1 UNITS/0.01ML SC SCH (08:33)
[2021-01-11 12:05] VITALS: BP 188/79
--- NOTE | 2021-01-11 12:30 | IPNPDOC ---
Date Seen The patient was seen on 01/11/21. Progress Note SUBJECTIVE: Patient seen examined at bedside. States had coffee-ground emesis yesterday however nothing overnight or this morning. No other signs of bleeding. Denies chest pain abdominal pain nausea vomiting diarrhea. Is afebrile. Hemoglobin 9.6 this morning OBJECTIVE PHYSICAL EXAMINATION: VITAL SIGNS: please see below General: NAD, comfortable HEENT: PERRLA, EOMI, sclerae clear Neck: supple, normal ROM, no JVD Respiratory: lungs CTAB, no wheeze, no rales, no crackles CVS: RRR, normal S1, S2, no murmurs Abdo: soft, no masses, no hepatosplenomegaly, BS+, no rebound tenderness Extremities: no edema, pulses 2+ MSK: no joint deformities, normal ROM Neuro: no focal neuro deficits, moving all 4 extremities, CN2-12 intact. Strength 5/5 in all 4 extremities. No nystagmus. Psych: calm, cooperative, AAO x 3 LABORATORY DATA, IMAGING STUDIES, MICROBIOLOGY: Please see below. DVT prophylaxis ordered?:TEDs, SCDs ASSESSMENT AND PLAN: This is a -year-old [RACE] [GENDER] with . PROBLEMS: Acute blood loss anemia - possibly 2/2 Upper GI bleed - Patient reports nausea, vomiting, abdominal pain for the last 5 days - Currently patient is hemodynamically stable - Hemoglobin appears to be lower than baseline; ~ by 2 units - Patient has been typed and screened - Will c/w Telemetry monitoring - Will transfuse 2 units PRBC - Will hold Plavix; c/w ASA 81 - Will start Protonix / Carafate / Will remain NPO - Consulted GI; case discussed with Dr. Velazquez - will consider EGD on 01/13/21, after vascular surgery intervention. Does not believe an urgent EGD is indicated. Bleeding is likely sourced from gastritis/peptic ulcer/gastric ulcer and to be treated conservatively for now. Lactic acidosis - Will change fluids for Normal saline - Will repeat within 4 hours Nausea / Vomiting - possibly 2/2 above - Lab work does not reveal any evidence of DKA - Will start Zofran PRN IDDM1 with hypoglycemia - Patient uses an insulin pump at home - pump held. C/w ISS. Questionable CKD - Cr 1.1 to 1.4 - Cr appears to be at baseline Diastolic CHF - No evidence of exacerbation - Prior EHCO noted above PVD s/p Angioplasty - s/p Bilateral BKA - Patient has had a recent admission for R sump osteomyelitis with Staph Epidermidis - Has been on Linezolid as an outpatient (instructions to stop antibiotics on 01/20/2021); however had stopped sooner - Scheduled for surgery with Dr. Mesa - Will check blood cultures / Procalcitonin / ESR / CRP - s/p Zosyn in the ER - c/w ASA; Will hold Plavix due to GIB, until cleared by GI. - Discussed with vascular surgery, Dr. Jones - likely I&D, will hold additional antibiotics - Will consult advanced wound care; Dr. 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 Hx of COVID19 infection - Currently saturating well on room air - Diagnosed 04/2020 Depression - c/w Aripiprazole / Citalopram Glaucoma GERD - See above DVT prophylaxis - Will start TEDs/Sequentials Disposition: - Anticipate 2 midnight stay - Pending clinical improvement VS, I&O, 24H, Fishbone Vital Signs/I&O Vital Signs Date Time Temp Pulse Resp B/P (MAP) Pulse Ox O2 Delivery O2 Flow Rate FiO2 01/11/21 08:19 90 128/59 01/11/21 08:00 98.0 18 97 Room Air I&O- Last 24 Hours up to 6 AM 01/11/21 05:59 Intake Total 2485 ml Output Total 325 ml Balance 2160 ml Laboratory Data 24H LABS Laboratory Tests 2 01/10/21 14:13: Bedside Glucose (Misc Panel) 238H 01/10/21 14:20: Lactic Acid Level 1.5 01/10/21 18:45: Bedside Glucose (Misc Panel) 202H 01/10/21 21:03: Immature Granulocyte % (Auto) 0.3, Neutrophils (%) (Auto) 83.2H, Lymphocytes (%) (Auto) 9.0L, Monocytes (%) (Auto) 7.4, Eosinophils (%) (Auto) 0.0, Basophils (%) (Auto) 0.1, Neutrophils # (Auto) 6.3, Lymphocytes # (Auto) 0.7L, Monocytes # (Auto) 0.6, Eosinophils # (Auto) 0.0, Basophils # (Auto) 0.0, Nucleated Red Blood Cells % (auto) 0.3H, Anion Gap 4L, Glomerular Filtration Rate > 60.0, Calcium Level 8.1L, Magnesium Level 1.9 01/11/21 00:49: Bedside Glucose (Misc Panel) 186H 01/11/21 04:30: Immature Granulocyte % (Auto) 0.3, Neutrophils (%) (Auto) 64.4, Lymphocytes (%) (Auto) 21.4L, Monocytes (%) (Auto) 13.5H, Eosinophils (%) (Auto) 0.3, Basophils (%) (Auto) 0.1, Neutrophils # (Auto) 4.5, Lymphocytes # (Auto) 1.5, Monocytes # (Auto) 1.0H, Eosinophils # (Auto) 0.0, Basophils # (Auto) 0.0, Nucleated Red Blood Cells % (auto) 0.0, Anion Gap 4L, Glomerular Filtration Rate > 60.0, Calcium Level 8.2L, Magnesium Level 1.8 01/11/21 06:38: Bedside Glucose (Misc Panel) 143H 01/11/21 08:30: Bedside Glucose (Misc Panel) 121H 01/11/21 11:47: Bedside Glucose (Misc Panel) 141H CBC/BMP Laboratory Tests 01/10/21 21:03 01/11/21 04:30 Microbiology Microbiology 01/10/21 Blood Culture - Preliminary, Resulted No growth after 24 hours . All specim... 01/10/21 Blood Culture - Preliminary, Resulted No growth after 24 hours . All specim... DOUG MULLIGAN MD Jan 11, 2021 12:30
--- NOTE | 2021-01-11 14:08 | CR ---
CONSULTATION DATE: 01/11/2021 CONSULTATION ORDERED BY: Dr. Kearney; however, the patient is now being covered by Dr. Fay. REASON FOR CONSULTATION: Wound care suggestions and treatment recommendation for nohhealing right below-knee amputation. Wound care telemedicine provides a visual assessment of a wound without the benefit of physical examination. It can assist with establishing a diagnosis and etiology. This allows for an initial treatment plan. As wounds often change, it may be necessary to modify the original care. Our recommendation is periodic wound reassessment to monitor wound treatment. Failure to comply may result in nonhealing of the wound, possible complications, and/or poor outcome. The recommendations given will serve as treatment options. As I will not be following this patient, this care plan will require the attending physician to give and sign the orders. Upon discharge, outpatient followup can be scheduled at our wound care center. A 60-year-old brittle diabetic on insulin via pump, recently discharged from [facility] and then readmitted due to hypoglycemia. The patient is a bilateral below-knee amputee, the right lower extremity recently performed. When seen today, there is a wound dehiscence and nonhealing of the medial aspect of his right below-knee amputation site. This wound measures 1.0 cm vertically, 2.0 mm horizontally with a wound depth of 0.6 cm. This wound base shows areas of fascia and areas of fibrin slough. The drainage is minimal to moderate, serous without odor. Periwound shows no erythema, maceration, or ischemic changes. Patient is not complaining of any significant pain, and there is no flexion contraction noted. Left below-knee amputation site is completely healed. LABORATORY STUDIES: The patient's GFR is greater than 60. His hemoglobin A1c is 7.5. His white count is 7.1, and his hemoglobin after transfusion is 10.0, which has decreased by 1 gram. In addition to his diabetes and nonhealing of his wound, there is a question of a gastrointestinal (GI) bleed, as the patient had hematemesis, and he is undergoing a GI workup at this time. TREATMENT SUGGESTIONS: Below-knee amputations often times have difficulty healing, especially in diabetics. It is important to rule out any peripheral vascular disease, especially at the distal superficial femoral artery, popliteal artery and trifurcation. This is best evaluated by a CT angio, including distal aorta, with bilateral runoff. In terms of wound care: the wound should be cleansed with Vashe wound cleanser for 10 minutes followed by Jesseyl, a collagenase enzymatic debrider applying, a nickel thick layer to the wound base, covered with a Hydrofera Blue Classic cut to the size of the wound, and then an outer dressing of Xtrasorb. Dressing should be changed on a daily basis. There is no indication for antibiotic therapy. This is a colonized and noninfected wound. MTDD
[2021-01-11 16:00] VITALS: BP 162/75
[2021-01-11] MEDS ORDERED: DEXTROSE 50% 50 ML SYRINGE IV PRN (16:10)
[2021-01-11] MEDS ORDERED: GLUCOSE 4GM CHEW TABLET PO PRN (16:10)
[2021-01-11] MEDS ORDERED: GLUCAGON INJ 1MG VIAL SC PRN (16:10)
[2021-01-11] MEDS ORDERED: HumaLOG INSULIN (NovoLOG) PER UNIT SC SCH ×2 (17:30→21:00)
--- NOTE | 2021-01-11 18:21 | IPNPDOC ---
Text Note Date of Service The patient was seen on 01/11/21, at 6.10 pm. NOTE Doing well. Feeling much better Tolerated PO liquids For EGD on 01/13/21 Plan: Right BKA stump debridement tomorrow in OR VS,Fishbone, I+O VS, Fishbone, I+O Laboratory Tests 01/10/21 21:03 01/11/21 04:30 Vital Signs Date Time Temp Pulse Resp B/P (MAP) Pulse Ox O2 Delivery O2 Flow Rate FiO2 01/11/21 12:00 98.4 91 18 98 Room Air 01/11/21 08:19 128/59 I&O- Last 24 Hours up to 6 AM 01/11/21 06:00 Intake Total 2685 ml Output Total 325 ml Balance 2360 ml Anais Jones MD Jan 11, 2021 18:21
[2021-01-11] MEDS: ONDANSETRON 4MG/2ML VIAL IV PRN (18:32)
[2021-01-11 20:00] VITALS: BP 120/57
[2021-01-12] VITALS (7 sets, daily range): BP systolic 104–136; BP diastolic 51–66
[2021-01-12] MEDS: HumaLOG INSULIN (NovoLOG) PER UNIT SC SCH ×4 (00:25→18:25)
[2021-01-12 05:28] LABS: BASO % 0.4 % (0.0-1.0); EOS # 0.1 10^3/uL (0.0-0.5); EOS % 1.3 % (0.0-3.0); HEMOGLOBIN 9.2 g/dl (13.5-17.5); LYMPH # 1.7 10^3/uL (1.5-5.0); LYMPH % 31.9 % (24.0-44.0); MEAN CORPUSCULAR HGB CONC 34.1 g/dl (32.0-36.5); MEAN CORPUSCULAR VOLUME 87.9 fl (80.0-96.0); MONO # 0.9 10^3/uL (0.0-0.8); MONO % 17.3 % (2.0-8.0); NEUTROPHILS # 2.6 10^3/uL (1.5-8.5); NEUTROPHILS % 48.7 % (36.0-66.0); PLATELET COUNT, AUTOMATED 139 10^3/uL (150-450); RED BLOOD COUNT 3.07 10^6/uL (4.30-6.10); WHITE BLOOD COUNT 5.3 10^3/uL (4.0-10.0)
[2021-01-12 05:43] LABS: BLOOD UREA NITROGEN 7 MG/DL (7-18); CALCIUM LEVEL 7.8 MG/DL (8.8-10.2); CARBON DIOXIDE LEVEL 31 MEQ/L (21-32); CHLORIDE LEVEL 105 MEQ/L (98-107); CREATININE FOR GFR 0.97 MG/DL (0.70-1.30); GLOMERULAR FILTRATION RATE > 60.0 (>49); GLUCOSE, FASTING 105 MG/DL (70-100); MAGNESIUM LEVEL 1.8 MG/DL (1.8-2.4); POTASSIUM SERUM 3.8 MEQ/L (3.5-5.1); SODIUM LEVEL 139 MEQ/L (136-145)
[2021-01-12] MEDS: predniSONE 5 MG TAB PO SCH (10:27)
[2021-01-12] MEDS: SUCRALFATE SUSP 1GM/10ML UD PO SCH ×4 (10:27→21:35)
[2021-01-12] MEDS: ATORVASTATIN 20 MG TAB PO SCH (10:27)
[2021-01-12] MEDS: MULTIVITAMINS/MINERALS THERAP 1 TAB PO SCH (10:28)
[2021-01-12] MEDS: predniSONE 1 MG TAB PO SCH (10:28)
[2021-01-12] MEDS: GABAPENTIN 300 MG CAP PO SCH ×2 (10:28→21:35)
[2021-01-12] MEDS: FINASTERIDE 5 MG TAB PO SCH (10:28)
[2021-01-12] MEDS: ASPIRIN 81MG ENTERIC TABLET PO SCH (10:28)
[2021-01-12] MEDS: CitaloPRAM (CeleXA) 20 MG TAB PO SCH (10:28)
[2021-01-12] MEDS: LEVEMIR (INSULIN DETEMIR) 1 UNITS/0.01ML SC SCH (10:28)
[2021-01-12] MEDS: PANTOPRAZOLE 40MG VIAL (C9113 PER 1) IV SCH ×2 (10:29→21:34)
[2021-01-12] MEDS: amLODIPine 5 MG TAB PO SCH ×2 (10:29→21:34)
[2021-01-12 12:23] LABS: C REACTIVE PROTEIN QUANTITATIV 0.63 MG/DL (0.00-0.30)
--- NOTE | 2021-01-12 13:12 | IPNPDOC ---
Date Seen The patient was seen on 01/12/21. Progress Note SUBJECTIVE: Patient seen examined at bedside. No acute events overnight. No more coffee ground emesis. Asking to eat, presently NPO for washout of R knee stump today by Dr. Jones. OBJECTIVE PHYSICAL EXAMINATION: VITAL SIGNS: please see below General: NAD, comfortable HEENT: PERRLA, EOMI, sclerae clear Neck: supple, normal ROM, no JVD Respiratory: lungs CTAB, no wheeze, no rales, no crackles CVS: RRR, normal S1, S2, no murmurs Abdo: soft, no masses, no hepatosplenomegaly, BS+, no rebound tenderness Extremities: no edema, pulses 2+ MSK: bilateral BKAs, R stump dressed, colonized. No surrounding cellulitis. Neuro: no focal neuro deficits, moving all 4 extremities, CN2-12 intact. Stren gth 5/5 in all 4 extremities. No nystagmus. Psych: calm, cooperative, AAO x 3 LABORATORY DATA, IMAGING STUDIES, MICROBIOLOGY: Please see below. DVT prophylaxis ordered?:TEDs, SCDs ASSESSMENT AND PLAN: 60 yo M with a PMHx of diastolic CHF, Type 1 DM, PVD s/p angioplasty (s/p b/l BKA), recent R stump osteomyelitis (staph epidermidis, stopped course of linezolid prematurely). Admitted with acute blood loss anemia, as well as nausea and vomiting. Paitent also being followed by Dr. Jones and is planned for washout of R stump. PROBLEMS: Acute blood loss anemia - possibly 2/2 Upper GI bleed - patient's nausea and vomiting have resolved. - Hgb 7.5 on admission, received 2 units pRBC, improved to 10.6, with slow decrease to 9.2. - C/w ASa 81 mg. Plavix is held since 01/11/21. - c/w protonix, carafate. - Consulted GI; case discussed with Dr. Velazquez - plan for EGD on 01/13/21, after vascular surgery intervention. Lactic acidosis - resolved after IVF. IDDM1 with hypoglycemia - uses insulin pump at home - ISS. BG well controlled. Questionable CKD - Cr 1.1 to 1.4 - Cr appears to be at baseline Diastolic CHF - No evidence of exacerbation - recent echo on 12/07/20, normal LVEF. G1DD. PVD s/p Angioplasty - s/p Bilateral BKA - Patient has had a recent admission for R sump osteomyelitis with Staph Epidermidis - Has been on Linezolid as an outpatient (instructions to stop antibiotics on 01/20/2021); however had stopped sooner - Scheduled for surgery with Dr. Mesa - Will check blood cultures / Procalcitonin / ESR / CRP - s/p Zosyn in the ER - c/w ASA; Will hold Plavix (re: GI bleed) - washout of R stump I and D by Dr. Jones today. No additional abx given - evaluated by Dr. Ledesma, wound care instructions ordered. D/w Dr. Jones, recommends against additional CT angio of R leg. 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 VS, I&O, 24H, Fishbone Vital Signs/I&O Vital Signs Date Time Temp Pulse Resp B/P (MAP) Pulse Ox O2 Delivery O2 Flow Rate FiO2 01/12/21 11:41 98.8 80 18 126/59 (81) 96 Room Air I&O- Last 24 Hours up to 6 AM 01/12/21 06:00 Intake Total 1700 ml Output Total 1500 ml Balance 200 ml Laboratory Data 24H LABS Laboratory Tests 2 01/11/21 18:39: Bedside Glucose (Misc Panel) 220H 01/12/21 00:20: Bedside Glucose (Misc Panel) 180H 01/12/21 05:09: Immature Granulocyte % (Auto) 0.4, Neutrophils (%) (Auto) 48.7, Lymphocytes (%) (Auto) 31.9, Monocytes (%) (Auto) 17.3H, Eosinophils (%) (Auto) 1.3, Basophils (%) (Auto) 0.4, Neutrophils # (Auto) 2.6, Lymphocytes # (Auto) 1.7, Monocytes # (Auto) 0.9H, Eosinophils # (Auto) 0.1, Basophils # (Auto) 0.0, Nucleated Red Blood Cells % (auto) 0.4H, Anion Gap 3L, Glomerular Filtration Rate > 60.0, Calcium Level 7.8L, Magnesium Level 1.8 01/12/21 12:27: Bedside Glucose (Misc Panel) 225H CBC/BMP Laboratory Tests 01/12/21 05:09 Microbiology Microbiology 01/10/21 Blood Culture - Preliminary, Resulted No Growth after 48 hours. All Specime... 01/10/21 Blood Culture - Preliminary, Resulted No Growth after 48 hours. All Specime... DOUG MULLIGAN MD Jan 12, 2021 13:12
[2021-01-12] MEDS ORDERED: ceFAZolin SOD 2 GM in IV 1 EA IV ONE (13:30)
[2021-01-12] MEDS ORDERED: ceFAZolin 2 GM/D5W 50 ML IV BAG (J0690 PER 500MG) As Ordered ONE (13:39)
[2021-01-12] MEDS ORDERED: HumaLOG INSULIN (NovoLOG) PER UNIT As Ordered ONE (14:02)
[2021-01-12] MEDS ORDERED: LIDOCAINE 1% MDV 20ML VIAL As Ordered ONE (14:26)
--- NOTE | 2021-01-12 15:49 | ROOPDOC ---
[facility] Report Of Operation Report of Operation DATE OF PROCEDURE: 01/12/21 PREPROCEDURE DIAGNOSES: Nonhealing right below-knee amputation stump wound, secondary to necrotic tissue. POSTPROCEDURE DIAGNOSES: Nonhealing right below-knee amputation stump wound, secondary to necrotic tissue. PROCEDURE PERFORMED: Excisional debridement of the right below-knee amputation stump wound, to the level of the tendons. Wound VAC application: Wound measurements 3 cm x 1.5 x 3 cm SURGEON: Anais Jones MD ELECTRO OPTICAL ENGINEER: None ANESTHESIA: General, LMA and local ESTIMATED BLOOD LOSS: Approximately 10 mL. COMPLICATIONS: None FINDINGS: No gross pus or infection. Bone is not exposed. Necrotic tendons SPECIMENS REMOVED: None PROCEDURE NOTE: Indication for the procedure: The patient is a 60-year-old type I diabetic, who had bilateral below-knee amputations in the past. He underwent revision of the right below-knee amputation on 12/08/2020, for osteomyelitis of the tibia. The patient's incision was left open, in the center, as there was abscess. The wound healed appropriately, for some time, after which the healing process stagnated, and the wound was noted to have necrotic tissue at its base. Hence the above-mentioned procedure is being performed. The patient is currently hospitalized with anemia, and a recent history of nausea, vomiting and severe retching. He was transfused 2 units of blood, after which his hemoglobin is stable and is 9.2 today morning. He is scheduled for EGD tomorrow by gastroenterology DESCRIPTION OF PROCEDURE: The patient was identified correctly. He was placed prone on the operating room table and general anesthesia with laryngeal mask airway was administered. The right BKA stump was cleaned and draped in a sterile fashion. He received 2 g Ancef intravenously as preoperative antibiotic prophylaxis. A timeout was performed. The wound in the center of the BKA stump incision was sharply debrided, using knife and scissors. The debridement included the skin, the subcutaneous tissue, and the tendons. Debridement was carried on, till the underlying tissue was clean and bleeding noted. The bone was not exposed. Hemostasis was achieved. The wound was irrigated with normal saline. Wound VAC dressing was applied and connected to VAC suction. The patient tolerated the procedure well. He was extubated and was transferred to the recovery room in a stable condition. Plan: No indication for antibiotics Wound VAC dressings 3 times a week. Anais Jones MD Jan 12, 2021 15:49
[2021-01-13] VITALS: BP 118/57
[2021-01-13] MEDS: HumaLOG INSULIN (NovoLOG) PER UNIT SC SCH ×5 (00:27→22:14)
[2021-01-13] MEDS ORDERED: SODIUM CHLORIDE 0.9% INJ 10 ML SYR IV PRN (01:20)
[2021-01-13 04:00] VITALS: BP 101/54
[2021-01-13] MEDS: SUCRALFATE SUSP 1GM/10ML UD PO SCH ×4 (06:00→21:59)
[2021-01-13] MEDS: SODIUM CHLORIDE 0.9% INJ 10 ML SYR IV SCH ×3 (06:02→22:14)
[2021-01-13 06:31] LABS: BASO % 0.2 % (0.0-1.0); EOS # 0.1 10^3/uL (0.0-0.5); HEMATOCRIT 27.8 % (42.0-52.0); HEMOGLOBIN 9.6 g/dl (13.5-17.5); LYMPH # 1.7 10^3/uL (1.5-5.0); LYMPH % 33.3 % (24.0-44.0); MEAN CORPUSCULAR HEMOGLOBIN 30.2 pg (27.0-33.0); MEAN CORPUSCULAR HGB CONC 34.5 g/dl (32.0-36.5); MEAN CORPUSCULAR VOLUME 87.4 fl (80.0-96.0); MONO # 0.8 10^3/uL (0.0-0.8); NEUTROPHILS # 2.6 10^3/uL (1.5-8.5); NEUTROPHILS % 48.9 % (36.0-66.0); PLATELET COUNT, AUTOMATED 183 10^3/uL (150-450); RED BLOOD COUNT 3.18 10^6/uL (4.30-6.10); WHITE BLOOD COUNT 5.2 10^3/uL (4.0-10.0)
[2021-01-13 06:48] LABS: BLOOD UREA NITROGEN 5 MG/DL (7-18); CALCIUM LEVEL 8.4 MG/DL (8.8-10.2); CARBON DIOXIDE LEVEL 30 MEQ/L (21-32); CHLORIDE LEVEL 105 MEQ/L (98-107); CREATININE FOR GFR 0.92 MG/DL (0.70-1.30); GLOMERULAR FILTRATION RATE > 60.0 (>49); GLUCOSE, FASTING 128 MG/DL (70-100); MAGNESIUM LEVEL 1.8 MG/DL (1.8-2.4); POTASSIUM SERUM 3.4 MEQ/L (3.5-5.1); SODIUM LEVEL 140 MEQ/L (136-145)
[2021-01-13 08:00] VITALS: BP 119/40
[2021-01-13] MEDS: PANTOPRAZOLE 40MG VIAL (C9113 PER 1) IV SCH ×2 (09:29→22:00)
[2021-01-13] MEDS: ASPIRIN 81MG ENTERIC TABLET PO SCH (09:30)
[2021-01-13] MEDS: LEVEMIR (INSULIN DETEMIR) 1 UNITS/0.01ML SC SCH (09:30)
[2021-01-13] MEDS: GABAPENTIN 300 MG CAP PO SCH ×2 (09:31→21:59)
[2021-01-13] MEDS: FINASTERIDE 5 MG TAB PO SCH (09:31)
[2021-01-13] MEDS: MULTIVITAMINS/MINERALS THERAP 1 TAB PO SCH (09:31)
[2021-01-13] MEDS: CitaloPRAM (CeleXA) 20 MG TAB PO SCH (09:31)
[2021-01-13] MEDS: ATORVASTATIN 20 MG TAB PO SCH (09:31)
[2021-01-13] MEDS: amLODIPine 5 MG TAB PO SCH ×2 (09:32→21:59)
[2021-01-13] MEDS: predniSONE 5 MG TAB PO SCH (09:33)
[2021-01-13] MEDS: predniSONE 1 MG TAB PO SCH (09:34)
[2021-01-13 12:00] VITALS: BP 133/60
[2021-01-13] MEDS ORDERED: fentaNYL 100 MCG/2 ML INJECTION (J3010) As Ordered ONE (15:32)
[2021-01-13] MEDS ORDERED: propofoL 200 MG/20 ML VIAL As Ordered ONE (15:32)
[2021-01-13] MEDS ORDERED: LIDOCAINE 2% 100MG/5ML SDV (FOR ANES.) As Ordered ONE (15:32)
--- NOTE | 2021-01-13 15:59 | ROOR ---
Patient Name: Hermann Girard Procedure Date: 01/13/2021 3:28 PM Date of : 1960 Age: 60 Room: [facility] Gender: Male Note Status: Finalized Procedure: Upper GI endoscopy Indications: Acute post hemorrhagic anemia, Iron deficiency anemia, Hematemesis Providers: Kanu Velazquez MD Referring MD: 2. Inpatient 2. Inpatient Requesting Provider: Medicines: Monitored Anesthesia Care Complications: No immediate complications. Procedure: Pre-Anesthesia Assessment: - Prior to the procedure, a History and Physical was performed, and patient medications and allergies were reviewed. The patient is competent. The risks and benefits of the procedure and the sedation options and risks were discussed with the patient. All questions were answered and informed consent was obtained. Patient identification and proposed procedure were verified by the physician, the nurse and the anesthesiologist in the procedure room. Mental Status Examination: alert and oriented. Airway Examination: normal oropharyngeal airway and neck mobility. Respiratory Examination: clear to auscultation. CV Examination: normal. Prophylactic Antibiotics: The patient does not require prophylactic antibiotics. Prior Anticoagulants: The patient has taken no previous anticoagulant or antiplatelet agents. ASA Grade Assessment: II - A patient with mild systemic disease. After reviewing the risks and benefits, the patient was deemed in satisfactory condition to undergo the procedure. The anesthesia plan was to use monitored anesthesia care (MAC). Immediately prior to administration of medications, the patient was re-assessed for adequacy to receive sedatives. The heart rate, respiratory rate, oxygen saturations, blood pressure, adequacy of pulmonary ventilation, and response to care were monitored throughout the procedure. The physical status of the patient was re-assessed after the procedure. The Endoscope was introduced through the mouth, and advanced to the second part of duodenum. The upper GI endoscopy was accomplished without difficulty. The patient tolerated the procedure well. Findings: LA Grade C (one or more mucosal breaks continuous between tops of 2 or more mucosal folds, less than 75% circumference) esophagitis with no bleeding was found in the distal esophagus. Patchy moderately erythematous mucosa without bleeding was found in the gastric fundus - suggestive of emesis gastropathy.. An acquired benign-appearing, intrinsic moderate stenosis was found in the first portion of the duodenum and was traversed. Impression: - LA Grade C reflux esophagitis. - Erythematous mucosa in the gastric fundus.( emesis gastropathy). - Acquired duodenal stenosis. - No specimens collected. Recommendation: - Patient has a contact number available for emergencies. The signs and symptoms of potential delayed complications were discussed with the patient. Return to normal activities tomorrow. Written discharge instructions were provided to the patient. - Mechanical soft diet and soft diet. - Continue present medications. - Use Protonix (pantoprazole) 40 mg PO twice daily - to be taken in morning (1/2 hour before breakfast) and at bedtime ( atleast 3 hours after last meal) for 3 months. - Use sucralfate suspension 1 gram PO QID for 4 weeks. - Resume Plavix (clopidogrel) at prior dose today. Refer to primary physician for further adjustment of therapy. - Return to GI clinic in 2 months. - Return to primary care physician. Procedure Code(s): --- Professional --- 82219, Esophagogastroduodenoscopy, flexible, transoral; diagnostic, including collection of specimen(s) by brushing or washing, when performed (separate procedure) Diagnosis Code(s): --- Professional --- K21.0, Gastro-esophageal reflux disease with esophagitis K31.89, Other diseases of stomach and duodenum K31.5, Obstruction of duodenum D62, Acute posthemorrhagic anemia D50.9, Iron deficiency anemia, unspecified K92.0, Hematemesis CPT copyright 2019 [employer]. All rights reserved. The codes documented in this report are preliminary and upon leguillon debeader review may be revised to meet current compliance requirements. Kanu Velazquez MD Kanu Velazquez MD 01/13/2021 3:59:24 PM Electronically signed by Kanu Velazquez MD Number of Addenda: 0 Note Initiated On: 01/13/2021 3:28 PM Estimated Blood Loss: Estimated blood loss: none.
--- NOTE | 2021-01-13 18:16 | IPNPDOC ---
Date Seen The patient was seen on 01/13/21. Progress Note SUBJECTIVE: Patient seen examined at bedside. No acute events overnight. No more coffee ground emesis. OBJECTIVE PHYSICAL EXAMINATION: VITAL SIGNS: please see below General: NAD, comfortable HEENT: PERRLA, EOMI, sclerae clear Neck: supple, normal ROM, no JVD Respiratory: lungs CTAB, no wheeze, no rales, no crackles CVS: RRR, normal S1, S2, no murmurs Abdo: soft, no masses, no hepatosplenomegaly, BS+, no rebound tenderness Extremities: no edema, pulses 2+ MSK: bilateral BKAs, R stump dressed, colonized. No surrounding cellulitis. Neuro: no focal neuro deficits, moving all 4 extremities, CN2-12 intact. Strength 5/5 in all 4 extremities. No nystagmus. Psych: calm, cooperative, AAO x 3 LABORATORY DATA, IMAGING STUDIES, MICROBIOLOGY: Please see below. DVT prophylaxis ordered?:TEDs, SCDs ASSESSMENT AND PLAN: 60 yo M with a PMHx of diastolic CHF, Type 1 DM, PVD s/p angioplasty (s/p b/l BKA), recent R stump osteomyelitis (staph epidermidis, stopped course of linezolid prematurely). Admitted with acute blood loss anemia, as well as nausea and vomiting. Paitent also being followed by Dr. Jones and is planned for washout of R stump. PROBLEMS: Acute blood loss anemia - possibly 2/2 Upper GI bleed - patient's nausea and vomiting have resolved. - Hgb 7.5 on admission, received 2 units pRBC, improved to 10.6, with slow decrease to 9.2. - C/w ASa 81 mg. Plavix is held since 01/11/21. - c/w protonix, carafate. - Consulted GI; case discussed with Dr. Velazquez -EGD performed on 01/13/2021: Reflux esophagitis seen, emesis gastropathy, acquired duodenal stenosis. Recommended for mechanical soft diet. Use pantoprazole 40 mg twice daily. You sucralfate 1 g p.o. 4 times daily for 4 weeks. Can resume Plavix today. Lactic acidosis - resolved after IVF. IDDM1 with hypoglycemia - uses insulin pump at home - ISS. BG well controlled. Questionable CKD - Cr 1.1 to 1.4 - Cr appears to be at baseline Diastolic CHF - No evidence of exacerbation - recent echo on 12/07/20, normal LVEF. G1DD. PVD s/p Angioplasty - s/p Bilateral BKA - Patient has had a recent admission for R sump osteomyelitis with Staph Epidermidis - Has been on Linezolid as an outpatient (instructions to stop antibiotics on 01/20/2021); however had stopped sooner - Scheduled for surgery with Dr. Mesa - Will check blood cultures / Procalcitonin / ESR / CRP - s/p Zosyn in the ER - c/w ASA; Will hold Plavix (re: GI bleed) - evaluated by Dr. Ledesma, wound care instructions ordered. D/w Dr. Jones, recommends against additional CT angio of R leg. - s/p washout of R stump on 01/12/21. No additional antibiotics recommended. 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 VS, I&O, 24H, Fishbone Vital Signs/I&O Vital Signs Date Time Temp Pulse Resp B/P (MAP) Pulse Ox O2 Delivery O2 Flow Rate FiO2 01/13/21 15:45 97.0 87 15 113/57 (75) 100 Room Air I&O- Last 24 Hours up to 6 AM 01/13/21 06:00 Intake Total 825 ml Output Total 2030 ml Balance -1205 ml Laboratory Data 24H LABS Laboratory Tests 2 01/13/21 00:19: Bedside Glucose (Misc Panel) 325H 01/13/21 05:48: Bedside Glucose (Misc Panel) 118H 01/13/21 06:12: Immature Granulocyte % (Auto) 0.6, Neutrophils (%) (Auto) 48.9, Lymphocytes (%) (Auto) 33.3, Monocytes (%) (Auto) 16.0H, Eosinophils (%) (Auto) 1.0, Basophils (%) (Auto) 0.2, Neutrophils # (Auto) 2.6, Lymphocytes # (Auto) 1.7, Monocytes # (Auto) 0.8, Eosinophils # (Auto) 0.1, Basophils # (Auto) 0.0, Nucleated Red Blood Cells % (auto) 0.0, Anion Gap 5L, Glomerular Filtration Rate > 60.0, Calcium Level 8.4L, Magnesium Level 1.8 01/13/21 12:32: Bedside Glucose (Misc Panel) 226H 01/13/21 18:08: Bedside Glucose (Misc Panel) 122H CBC/BMP Laboratory Tests 01/13/21 06:12 Microbiology Microbiology 01/10/21 Blood Culture - Preliminary, Resulted No Growth after 72 hours. All specime... 01/10/21 Blood Culture - Preliminary, Resulted No Growth after 72 hours. All specime... DOUG MULLIGAN MD Jan 13, 2021 18:16
[2021-01-13] MEDS: CLOPIDOGREL 75 MG TAB PO SCH (19:54)
[2021-01-13 20:00] VITALS: BP 111/59
[2021-01-14] VITALS: BP 125/59
[2021-01-14 04:09] VITALS: BP 138/63
[2021-01-14] MEDS: SODIUM CHLORIDE 0.9% INJ 10 ML SYR IV SCH ×3 (05:06→21:34)
[2021-01-14 05:45] LABS: BASO % 0.4 % (0.0-1.0); EOS # 0.1 10^3/uL (0.0-0.5); EOS % 2.1 % (0.0-3.0); HEMATOCRIT 28.4 % (42.0-52.0); HEMOGLOBIN 9.7 g/dl (13.5-17.5); LYMPH # 1.8 10^3/uL (1.5-5.0); LYMPH % 33.7 % (24.0-44.0); MEAN CORPUSCULAR HEMOGLOBIN 30.3 pg (27.0-33.0); MEAN CORPUSCULAR HGB CONC 34.2 g/dl (32.0-36.5); MEAN CORPUSCULAR VOLUME 88.8 fl (80.0-96.0); MONO # 0.7 10^3/uL (0.0-0.8); MONO % 13.3 % (2.0-8.0); NEUTROPHILS # 2.6 10^3/uL (1.5-8.5); NEUTROPHILS % 49.7 % (36.0-66.0); PLATELET COUNT, AUTOMATED 205 10^3/uL (150-450); WHITE BLOOD COUNT 5.3 10^3/uL (4.0-10.0)
[2021-01-14 06:14] LABS: BLOOD UREA NITROGEN 7 MG/DL (7-18); CALCIUM LEVEL 8.4 MG/DL (8.8-10.2); CARBON DIOXIDE LEVEL 30 MEQ/L (21-32); CHLORIDE LEVEL 106 MEQ/L (98-107); CREATININE FOR GFR 0.94 MG/DL (0.70-1.30); GLOMERULAR FILTRATION RATE > 60.0 (>49); GLUCOSE, FASTING 252 MG/DL (70-100); MAGNESIUM LEVEL 1.7 MG/DL (1.8-2.4); POTASSIUM SERUM 4.1 MEQ/L (3.5-5.1); SODIUM LEVEL 139 MEQ/L (136-145)
[2021-01-14 08:00] VITALS: BP 135/58
[2021-01-14] MEDS: HumaLOG INSULIN (NovoLOG) PER UNIT SC SCH ×4 (08:00→21:28)
[2021-01-14] MEDS: SUCRALFATE SUSP 1GM/10ML UD PO SCH ×4 (08:00→21:20)
[2021-01-14] MEDS: MAG SULF 1GM/100ML (MAG RUN) 1 GM in IV 1 EA IV SCH ×2 (08:01→09:06)
[2021-01-14] MEDS: LEVEMIR (INSULIN DETEMIR) 1 UNITS/0.01ML SC SCH (09:06)
[2021-01-14] MEDS: PANTOPRAZOLE 40MG VIAL (C9113 PER 1) IV SCH ×2 (09:06→21:20)
[2021-01-14] MEDS: MULTIVITAMINS/MINERALS THERAP 1 TAB PO SCH (09:08)
[2021-01-14] MEDS: CLOPIDOGREL 75 MG TAB PO SCH (09:08)
[2021-01-14] MEDS: GABAPENTIN 300 MG CAP PO SCH ×2 (09:09→21:20)
[2021-01-14] MEDS: ASPIRIN 81MG ENTERIC TABLET PO SCH (09:09)
[2021-01-14] MEDS: FINASTERIDE 5 MG TAB PO SCH (09:09)
[2021-01-14] MEDS: CitaloPRAM (CeleXA) 20 MG TAB PO SCH (09:09)
[2021-01-14] MEDS: ATORVASTATIN 20 MG TAB PO SCH (09:09)
[2021-01-14] MEDS: amLODIPine 5 MG TAB PO SCH ×2 (09:10→21:00)
[2021-01-14] MEDS: predniSONE 5 MG TAB PO SCH (09:11)
[2021-01-14] MEDS: predniSONE 1 MG TAB PO SCH (09:11)
[2021-01-14 12:00] VITALS: BP 106/50
--- NOTE | 2021-01-14 12:51 | IPNPDOC ---
Text Note Date of Service The patient was seen on 01/14/21, at 11.45am. NOTE The patient is doing well. He is feeling better. No pain in the right stump. On examination: Not in acute distress. Afebrile vital signs stable. Right BKA stump wound VAC dressing changed. Wound looks clean, but is deep, about 3 cm deep. Impression: Postop day 2, status post debridement of the right BKA stump. He is doing well. Plan: Continue wound VAC dressings, to the right BKA wound, 2-3 times a week. He may follow-up as an outpatient, with vascular surgery-he has an appointment on 02/03/2021. VS,Fishbone, I+O VS, Fishbone, I+O Laboratory Tests 01/14/21 05:26 Vital Signs Date Time Temp Pulse Resp B/P (MAP) Pulse Ox O2 Delivery O2 Flow Rate FiO2 01/14/21 12:00 98.8 74 18 106/50 (68) 98 Room Air I&O- Last 24 Hours up to 6 AM 01/14/21 05:59 Intake Total 900 ml Output Total 1450 ml Balance -550 ml Anais Jones MD Jan 14, 2021 12:51
[2021-01-14] MEDS ORDERED: SUCR1ORA PO (14:43)
[2021-01-14] MEDS ORDERED: ACET1TAB55 PO (14:43)
[2021-01-14] MEDS ORDERED: PANT40TA29 PO (14:43)
[2021-01-14] MEDS ORDERED: PLAV1TAB2 PO (14:44)
--- NOTE | 2021-01-14 17:35 | IPNPDOC ---
Date Seen The patient was seen on 01/14/21. Progress Note SUBJECTIVE: Patient seen examined at bedside. No acute events overnight. No more coffee ground emesis. Denies fevers, chills. OBJECTIVE PHYSICAL EXAMINATION: VITAL SIGNS: please see below General: NAD, comfortable HEENT: PERRLA, EOMI, sclerae clear Neck: supple, normal ROM, no JVD Respiratory: lungs CTAB, no wheeze, no rales, no crackles CVS: RRR, normal S1, S2, no murmurs Abdo: soft, no masses, no hepatosplenomegaly, BS+, no rebound tenderness Extremities: no edema, pulses 2+ MSK: bilateral BKAs, R stump dressed, colonized. No surrounding cellulitis. Neuro: no focal neuro deficits, moving all 4 extremities, CN2-12 intact. Strength 5/5 in all 4 extremities. No nystagmus. Psych: calm, cooperative, AAO x 3 LABORATORY DATA, IMAGING STUDIES, MICROBIOLOGY: Please see below. DVT prophylaxis ordered?:TEDs, SCDs ASSESSMENT AND PLAN: 60 yo M with a PMHx of diastolic CHF, Type 1 DM, PVD s/p angioplasty (s/p b/l BKA), recent R stump osteomyelitis (staph epidermidis, stopped course of linezolid prematurely). Admitted with acute blood loss anemia, as well as nausea and vomiting. Paitent also being followed by Dr. Jones and is planned for washout of R stump. PROBLEMS: Acute blood loss anemia - possibly 2/2 Upper GI bleed - patient's nausea and vomiting have resolved. - Hgb 7.5 on admission, received 2 units pRBC, improved to 10.6, with slow decrease to 9.2. - C/w ASa 81 mg. Plavix is held since 01/11/21. - c/w protonix, carafate. - Consulted GI; case discussed with Dr. Velazquez -EGD performed on 01/13/2021: Reflux esophagitis seen, emesis gastropathy, acquired duodenal stenosis. Recommended for mechanical soft diet. Use pantoprazole 40 mg twice daily. You sucralfate 1 g p.o. 4 times daily for 4 weeks. Can resume Plavix today. Lactic acidosis - resolved after IVF. IDDM1 with hypoglycemia - uses insulin pump at home - ISS. BG well controlled. - add levemir 10 units qhs once resumes normal diet. Questionable CKD - Cr 1.1 to 1.4 - Cr appears to be at baseline Diastolic CHF - No evidence of exacerbation - recent echo on 12/07/20, normal LVEF. G1DD. PVD s/p Angioplasty - s/p Bilateral BKA - Patient has had a recent admission for R sump osteomyelitis with Staph Epidermidis - Has been on Linezolid as an outpatient (instructions to stop antibiotics on 01/20/2021); however had stopped sooner - Scheduled for surgery with Dr. Mesa - Will check blood cultures / Procalcitonin / ESR / CRP - s/p Zosyn in the ER - c/w ASA; Will hold Plavix (re: GI bleed) - washout of R stump I and D by Dr. Jones today. No additional abx given - evaluated by Dr. Ledesma, wound care instructions ordered. D/w Dr. Jones, recommends against additional CT angio of R leg. 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 VS, I&O, 24H, Fishbone Vital Signs/I&O Vital Signs Date Time Temp Pulse Resp B/P (MAP) Pulse Ox O2 Delivery O2 Flow Rate FiO2 01/14/21 12:00 98.8 74 18 106/50 (68) 98 Room Air I&O- Last 24 Hours up to 6 AM 01/14/21 06:00 Intake Total 900 ml Output Total 1450 ml Balance -550 ml Laboratory Data 24H LABS Laboratory Tests 2 01/13/21 18:08: Bedside Glucose (Misc Panel) 122H 01/13/21 21:58: Bedside Glucose (Misc Panel) 349H 01/14/21 05:19: Bedside Glucose (Misc Panel) 273H 01/14/21 05:26: Immature Granulocyte % (Auto) 0.8, Neutrophils (%) (Auto) 49.7, Lymphocytes (%) (Auto) 33.7, Monocytes (%) (Auto) 13.3H, Eosinophils (%) (Auto) 2.1, Basophils (%) (Auto) 0.4, Neutrophils # (Auto) 2.6, Lymphocytes # (Auto) 1.8, Monocytes # (Auto) 0.7, Eosinophils # (Auto) 0.1, Basophils # (Auto) 0.0, Nucleated Red Blood Cells % (auto) 0.0, Anion Gap 3L, Glomerular Filtration Rate > 60.0, Calcium Level 8.4L, Magnesium Level 1.7L 01/14/21 12:33: Bedside Glucose (Misc Panel) 328H CBC/BMP Laboratory Tests 01/14/21 05:26 Microbiology Microbiology 01/10/21 Blood Culture - Preliminary, Resulted No Growth after 72 hours. All specime... 01/10/21 Blood Culture - Preliminary, Resulted No Growth after 72 hours. All specime... DOUG MULLIGAN MD Jan 14, 2021 17:35
[2021-01-14 20:00] VITALS: BP 104/49
[2021-01-15] VITALS (7 sets, daily range): BP systolic 90–137; BP diastolic 50–90
[2021-01-15] MEDS: SODIUM CHLORIDE 0.9% INJ 10 ML SYR IV SCH ×3 (06:00→20:58)
[2021-01-15] MEDS: HumaLOG INSULIN (NovoLOG) PER UNIT SC SCH ×4 (07:30→20:59)
[2021-01-15] MEDS: HumuLIN R (REGULAR) INSULIN (NovoLIN R) **100U/ML** PER UNIT IV STA ×2 (08:08→10:48)
[2021-01-15] MEDS: predniSONE 5 MG TAB PO SCH (09:00)
[2021-01-15] MEDS: predniSONE 1 MG TAB PO SCH (09:00)
[2021-01-15] MEDS: LEVEMIR (INSULIN DETEMIR) 1 UNITS/0.01ML SC SCH (09:00)
[2021-01-15] MEDS: PANTOPRAZOLE 40MG VIAL (C9113 PER 1) IV SCH ×2 (09:17→20:53)
[2021-01-15] MEDS: SUCRALFATE SUSP 1GM/10ML UD PO SCH ×4 (09:17→20:53)
[2021-01-15] MEDS: CitaloPRAM (CeleXA) 20 MG TAB PO SCH (09:18)
[2021-01-15] MEDS: CLOPIDOGREL 75 MG TAB PO SCH (09:18)
[2021-01-15] MEDS: FINASTERIDE 5 MG TAB PO SCH (09:18)
[2021-01-15] MEDS: ASPIRIN 81MG ENTERIC TABLET PO SCH (09:18)
[2021-01-15] MEDS: amLODIPine 5 MG TAB PO SCH ×2 (09:18→20:54)
[2021-01-15] MEDS: ATORVASTATIN 20 MG TAB PO SCH (09:19)
[2021-01-15] MEDS: GABAPENTIN 300 MG CAP PO SCH ×2 (09:19→20:53)
[2021-01-15] MEDS: MULTIVITAMINS/MINERALS THERAP 1 TAB PO SCH (09:21)
[2021-01-15 09:28] LABS: BASO % 0.5 % (0.0-1.0); EOS # 0.1 10^3/uL (0.0-0.5); EOS % 2.4 % (0.0-3.0); HEMATOCRIT 28.4 % (42.0-52.0); HEMOGLOBIN 9.8 g/dl (13.5-17.5); LYMPH # 1.7 10^3/uL (1.5-5.0); LYMPH % 27.9 % (24.0-44.0); MEAN CORPUSCULAR HEMOGLOBIN 30.8 pg (27.0-33.0); MEAN CORPUSCULAR HGB CONC 34.5 g/dl (32.0-36.5); MEAN CORPUSCULAR VOLUME 89.3 fl (80.0-96.0); MONO # 0.7 10^3/uL (0.0-0.8); MONO % 12.4 % (2.0-8.0); NEUTROPHILS # 3.3 10^3/uL (1.5-8.5); NEUTROPHILS % 56.1 % (36.0-66.0); PLATELET COUNT, AUTOMATED 230 10^3/uL (150-450); RED BLOOD COUNT 3.18 10^6/uL (4.30-6.10); WHITE BLOOD COUNT 5.9 10^3/uL (4.0-10.0)
[2021-01-15 09:51] LABS: BLOOD UREA NITROGEN 10 MG/DL (7-18); CALCIUM LEVEL 8.6 MG/DL (8.8-10.2); CARBON DIOXIDE LEVEL 27 MEQ/L (21-32); CHLORIDE LEVEL 100 MEQ/L (98-107); CREATININE FOR GFR 1.26 MG/DL (0.70-1.30); GLOMERULAR FILTRATION RATE > 60.0 (>49); GLUCOSE, FASTING 548 MG/DL (70-100); MAGNESIUM LEVEL 1.7 MG/DL (1.8-2.4); POTASSIUM SERUM 4.6 MEQ/L (3.5-5.1); SODIUM LEVEL 133 MEQ/L (136-145)
[2021-01-15] MEDS ORDERED: NS 500 ML IV ONE (10:55)
[2021-01-15] MEDS: MAG SULF 1GM/100ML (MAG RUN) 1 GM in IV 1 EA IV SCH ×2 (11:00→13:50)
[2021-01-15 11:27] LABS: ABG BASE EXCESS -0.7 (-2.0-2.0); ABG HCO3 22.5 MEQ/L (22.0-26.0); ABG O2 SATURATION 98.4 % (95.0-99.0); ABG PARTIAL PRESSURE CO2 31.9 mmHg (35.0-45.0); ABG PARTIAL PRESSURE O2 133.4 mmHg (75.0-100.0); ABG STANDARD HCO3 23.9 MEQ/L (22.0-26.0); ABG TOTAL CO2 23.5 MEQ/L (23.0-31.0); ABG pH (ARTERIAL) 7.466 UNITS (7.350-7.450)
[2021-01-15] MEDS: NS 0.45% 1,000 ML IV SCH ×2 (13:02→22:39)
[2021-01-15 15:29] LABS: BLOOD UREA NITROGEN 11 MG/DL (7-18); CALCIUM LEVEL 8.4 MG/DL (8.8-10.2); CARBON DIOXIDE LEVEL 28 MEQ/L (21-32); CHLORIDE LEVEL 104 MEQ/L (98-107); CREATININE FOR GFR 1.15 MG/DL (0.70-1.30); GLOMERULAR FILTRATION RATE > 60.0 (>49); GLUCOSE, FASTING 268 MG/DL (70-100); MAGNESIUM LEVEL 2.2 MG/DL (1.8-2.4); PHOSPHORUS LEVEL 1.4 MG/DL (2.5-4.9); POTASSIUM SERUM 3.9 MEQ/L (3.5-5.1); SODIUM LEVEL 138 MEQ/L (136-145)
[2021-01-15] MEDS: PIPERACILLIN/TAZOBACTAM SOD 4.5 GM in D5W MINI-BAG PLUS 50 ML IV SCH ×2 (17:15→22:39)
[2021-01-15] MEDS: VANCOMYCIN HCL 1,000 MG, VIAL MATE ADAPTER 1 EACH in NS 250 ML IV SCH (17:18)
--- NOTE | 2021-01-15 18:49 | IPNPDOC ---
Date Seen The patient was seen on 01/15/21. Progress Note SUBJECTIVE: hyperglycemia this morning. BG> 500. elevated ketones. No AG. Elevated LA. No nausea, no vomiting. OBJECTIVE PHYSICAL EXAMINATION: VITAL SIGNS: please see below General: NAD, comfortable HEENT: PERRLA, EOMI, sclerae clear Neck: supple, normal ROM, no JVD Respiratory: lungs CTAB, no wheeze, no rales, no crackles CVS: RRR, normal S1, S2, no murmurs Abdo: soft, no masses, no hepatosplenomegaly, BS+, no rebound tenderness Extremities: no edema, pulses 2+ MSK: bilateral BKAs, R stump dressed, colonized. No surrounding cellulitis. Neuro: no focal neuro deficits, moving all 4 extremities, CN2-12 intact. Strength 5/5 in all 4 extremities. No nystagmus. Psych: calm, cooperative, AAO x 3 LABORATORY DATA, IMAGING STUDIES, MICROBIOLOGY: Please see below. DVT prophylaxis ordered?:TEDs, SCDs ASSESSMENT AND PLAN: 60 yo M with a PMHx of diastolic CHF, Type 1 DM, PVD s/p angioplasty (s/p b/l BKA), recent R stump osteomyelitis (staph epidermidis, stopped course of linezolid prematurely). Admitted with acute blood loss anemia, as well as nausea and vomiting. Paitent also being followed by Dr. Jones and is planned for washout of R stump. PROBLEMS: Acute blood loss anemia - possibly 2/2 Upper GI bleed - patient's nausea and vomiting have resolved. - Hgb 7.5 on admission, received 2 units pRBC, improved to 10.6, with slow decrease to 9.2. - C/w ASa 81 mg. Plavix is held since 01/11/21. - c/w protonix, carafate. - Consulted GI; case discussed with Dr. Velazquez -EGD performed on 01/13/2021: Reflux esophagitis seen, emesis gastropathy, acquired duodenal stenosis. Recommended for mechanical soft diet. Use pantoprazole 40 mg twice daily. You sucralfate 1 g p.o. 4 times daily for 4 weeks. Plavix resumed Lactic acidosis - LA 3.5, improved after IVF to IDDM1 with hyperglycemia - uses insulin pump at home - ISS, gave 5 units regular insulin - No AG elevation. ABG showing no lactic acidosis - high risk for DKA - r/o infection, mcclain culture. - monitor fevers, CBC. - will ask patient to bring insulin pump to hospital. Questionable CKD - Cr 1.1 to 1.4 - Cr appears to be at baseline Diastolic CHF - No evidence of exacerbation - recent echo on 12/07/20, normal LVEF. G1DD. PVD s/p Angioplasty - s/p Bilateral BKA - Patient has had a recent admission for R sump osteomyelitis with Staph Epidermidis - Has been on Linezolid as an outpatient (instructions to stop antibiotics on 01/20/2021); however had stopped sooner - Scheduled for surgery with Dr. Mesa - Will check blood cultures / Procalcitonin / ESR / CRP - s/p Zosyn in the ER - c/w ASA; Will hold Plavix (re: GI bleed) - washout of R stump I and D by Dr. Jones today. No additional abx given - evaluated by Dr. Ledesma, wound care instructions ordered. D/w Dr. Jones, recommends against additional CT angio of R leg. - start vanco, zosyn due to elevated procal, hyperglycemia. Suspect infection. 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 VS, I&O, 24H, Fishbone Vital Signs/I&O Vital Signs Date Time Temp Pulse Resp B/P (MAP) Pulse Ox O2 Delivery O2 Flow Rate FiO2 01/15/21 15:38 98.2 62 100/55 (70) 99 Room Air 01/15/21 12:00 18 I&O- Last 24 Hours up to 6 AM 01/15/21 06:00 Intake Total 600 ml Output Total 1700 ml Balance -1100 ml Laboratory Data 24H LABS Laboratory Tests 2 01/14/21 21:18: Bedside Glucose (Misc Panel) 403H 01/15/21 07:17: Bedside Glucose (Misc Panel) 426H 01/15/21 09:05: Immature Granulocyte % (Auto) 0.7, Neutrophils (%) (Auto) 56.1, Lymphocytes (%) (Auto) 27.9, Monocytes (%) (Auto) 12.4H, Eosinophils (%) (Auto) 2.4, Basophils (%) (Auto) 0.5, Neutrophils # (Auto) 3.3, Lymphocytes # (Auto) 1.7, Monocytes # (Auto) 0.7, Eosinophils # (Auto) 0.1, Basophils # (Auto) 0.0, Nucleated Red Blood Cells % (auto) 0.0, B-Hydroxybutyrate 2.83H 01/15/21 09:06: Anion Gap 6L, Glomerular Filtration Rate > 60.0, Calcium Level 8.6L, Magnesium Level 1.7L 01/15/21 10:27: Bedside Glucose (Misc Panel) 490H 01/15/21 11:09: Blood Gas Bicarbonate Standard 23.9, Arterial Blood pH 7.466H, Arterial Blood Partial Pressure CO2 31.9L, Arterial Blood Partial Pressure O2 133.4H, Arterial Blood Total CO2 23.5, Arterial Blood HCO3 22.5, Arterial Blood Base Excess -0.7, Arterial Blood Oxygen Saturation 98.4 01/15/21 11:14: Erythrocyte Sedimentation Rate 15, Lactic Acid Level 3.8*H, C-Reactive Protein, Quantitative < 0.30 01/15/21 11:15: Procalcitonin 0.35 01/15/21 11:24: Bedside Glucose (Misc Panel) 394H 01/15/21 13:00: Bedside Glucose (Misc Panel) 301H 01/15/21 14:30: Lactic Acid Level 2.5*H 01/15/21 14:31: Anion Gap 6L, Glomerular Filtration Rate > 60.0, Calcium Level 8.4L, Phosphorus Level 1.4L, Magnesium Level 2.2 01/15/21 17:24: Bedside Glucose (Misc Panel) 71L 01/15/21 17:58: Bedside Glucose (Misc Panel) 95 CBC/BMP Laboratory Tests 01/15/21 09:05 01/15/21 09:06 01/15/21 14:31 Microbiology Microbiology 01/15/21 Blood Culture, Received Pending 01/15/21 Blood Culture, Received Pending 01/15/21 Blood Culture, Received Pending 01/10/21 Blood Culture - Final, Complete NO GROWTH AFTER 5 DAYS 01/10/21 Blood Culture - Final, Complete NO GROWTH AFTER 5 DAYS DOUG MULLIGAN MD Jan 15, 2021 18:49
[2021-01-15] MEDS ORDERED: POTASSIUM PHOSPHATE INJ 30 MMOL in D5W 500 ML IV ONE (19:00)
[2021-01-16 00:05] VITALS: BP 133/64
[2021-01-16 04:00] VITALS: BP 155/69
[2021-01-16 05:04] LABS: BASO % 0.3 % (0.0-1.0); EOS # 0.1 10^3/uL (0.0-0.5); EOS % 1.5 % (0.0-3.0); HEMATOCRIT 26.6 % (42.0-52.0); HEMOGLOBIN 9.1 g/dl (13.5-17.5); LYMPH # 1.3 10^3/uL (1.5-5.0); LYMPH % 19.1 % (24.0-44.0); MEAN CORPUSCULAR HEMOGLOBIN 30.1 pg (27.0-33.0); MEAN CORPUSCULAR HGB CONC 34.2 g/dl (32.0-36.5); MEAN CORPUSCULAR VOLUME 88.1 fl (80.0-96.0); MONO # 0.7 10^3/uL (0.0-0.8); MONO % 10.8 % (2.0-8.0); NEUTROPHILS # 4.5 10^3/uL (1.5-8.5); NEUTROPHILS % 67.5 % (36.0-66.0); PLATELET COUNT, AUTOMATED 226 10^3/uL (150-450); RED BLOOD COUNT 3.02 10^6/uL (4.30-6.10); WHITE BLOOD COUNT 6.6 10^3/uL (4.0-10.0)
[2021-01-16 05:09] LABS: PHOSPHORUS LEVEL 3.4 MG/DL (2.5-4.9)
[2021-01-16 05:11] LABS: BLOOD UREA NITROGEN 13 MG/DL (7-18); CALCIUM LEVEL 7.8 MG/DL (8.8-10.2); CARBON DIOXIDE LEVEL 28 MEQ/L (21-32); CHLORIDE LEVEL 102 MEQ/L (98-107); CREATININE FOR GFR 1.17 MG/DL (0.70-1.30); GLOMERULAR FILTRATION RATE > 60.0 (>49); GLUCOSE, FASTING 409 MG/DL (70-100); MAGNESIUM LEVEL 1.6 MG/DL (1.8-2.4); POTASSIUM SERUM 4.2 MEQ/L (3.5-5.1); SODIUM LEVEL 135 MEQ/L (136-145)
[2021-01-16] MEDS: NS 0.45% 1,000 ML IV SCH (05:35)
[2021-01-16] MEDS: PIPERACILLIN/TAZOBACTAM SOD 4.5 GM in D5W MINI-BAG PLUS 50 ML IV SCH ×4 (05:35→23:00)
[2021-01-16] MEDS: SODIUM CHLORIDE 0.9% INJ 10 ML SYR IV SCH ×3 (05:36→21:06)
[2021-01-16] MEDS ORDERED: HumaLOG INSULIN (NovoLOG) PER UNIT SC ONE (06:25)
[2021-01-16] MEDS ORDERED: MAGNESIUM OXIDE 400MG TAB (MAG-OX) PO ONE (06:25)
[2021-01-16] MEDS: VANCOMYCIN HCL 1,000 MG, VIAL MATE ADAPTER 1 EACH in NS 250 ML IV SCH ×2 (06:39→18:00)
[2021-01-16 07:32] VITALS: BP 117/63
[2021-01-16] MEDS: PANTOPRAZOLE 40MG VIAL (C9113 PER 1) IV SCH ×2 (08:15→20:59)
[2021-01-16] MEDS: amLODIPine 5 MG TAB PO SCH ×2 (08:16→21:00)
[2021-01-16] MEDS: SUCRALFATE SUSP 1GM/10ML UD PO SCH ×4 (08:16→20:59)
[2021-01-16] MEDS: CitaloPRAM (CeleXA) 20 MG TAB PO SCH (08:16)
[2021-01-16] MEDS: HumaLOG INSULIN (NovoLOG) PER UNIT SC SCH ×2 (08:17→11:51)
[2021-01-16] MEDS: LEVEMIR (INSULIN DETEMIR) 1 UNITS/0.01ML SC SCH (08:17)
[2021-01-16] MEDS: ATORVASTATIN 20 MG TAB PO SCH (08:17)
[2021-01-16] MEDS: ASPIRIN 81MG ENTERIC TABLET PO SCH (08:17)
[2021-01-16] MEDS: CLOPIDOGREL 75 MG TAB PO SCH (08:17)
[2021-01-16] MEDS: GABAPENTIN 300 MG CAP PO SCH ×2 (08:18→21:00)
[2021-01-16] MEDS: MULTIVITAMINS/MINERALS THERAP 1 TAB PO SCH (08:18)
[2021-01-16] MEDS: FINASTERIDE 5 MG TAB PO SCH (08:18)
[2021-01-16] MEDS: predniSONE 5 MG TAB PO SCH (08:18)
[2021-01-16] MEDS: predniSONE 1 MG TAB PO SCH (08:18)
[2021-01-16 08:39] LABS: C REACTIVE PROTEIN QUANTITATIV < 0.30 MG/DL (0.00-0.30)
[2021-01-16 08:45] LABS: ERYTHROCYTE SEDIMENTATION RATE 6 mm/hr (0-20)
--- NOTE | 2021-01-16 11:12 | IPNPDOC ---
Date Seen The patient was seen on 01/16/21. Progress Note SUBJECTIVE: patient seen at bedside. Doing well. Denies fevers, chills, pain at stump, no CP. BG elevated this morning at 409. Patient will ask family to bring his insulin pump and prosthesis as we anticipate DC. OBJECTIVE PHYSICAL EXAMINATION: VITAL SIGNS: please see below General: NAD, comfortable HEENT: PERRLA, EOMI, sclerae clear Neck: supple, normal ROM, no JVD Respiratory: lungs CTAB, no wheeze, no rales, no crackles CVS: RRR, normal S1, S2, no murmurs Abdo: soft, no masses, no hepatosplenomegaly, BS+, no rebound tenderness Extremities: no edema, pulses 2+ MSK: bilateral BKAs, R stump dressed, colonized. No surrounding cellulitis near the wound vac. Neuro: no focal neuro deficits, moving all 4 extremities, CN2-12 intact. Strength 5/5 in all 4 extremities. No nystagmus. Psych: calm, cooperative, AAO x 3 LABORATORY DATA, IMAGING STUDIES, MICROBIOLOGY: Please see below. DVT prophylaxis ordered?:TEDs, SCDs ASSESSMENT AND PLAN: 60 yo M with a PMHx of diastolic CHF, Type 1 DM, PVD s/p angioplasty (s/p b/l BKA), recent R stump osteomyelitis (staph epidermidis, stopped course of linezolid prematurely). Admitted with acute blood loss anemia, as well as nausea and vomiting. Paitent also being followed by Dr. Jones and is planned for washout of R stump. PROBLEMS: Acute blood loss anemia - possibly 2/2 Upper GI bleed - patient's nausea and vomiting have resolved. - Hgb 7.5 on admission, received 2 units pRBC, improved to 10.6, with slow decrease to 9.2. - C/w ASa 81 mg. Plavix is held since 01/11/21. - c/w protonix, carafate. - Consulted GI; case discussed with Dr. Velazquez -EGD performed on 01/13/2021: Reflux esophagitis seen, emesis gastropathy, acquired duodenal stenosis. Recommended for mechanical soft diet. Use pantoprazole 40 mg twice daily. You sucralfate 1 g p.o. 4 times daily for 4 weeks. Plavix resumed. Lactic acidosis - in setting of hyperglycemia, no criteria for DKA - resolved after administration of IVF. IDDM1 with hypoglycemia - uses insulin pump at home - patient was hyperglycemic, BG> 500 - ketones mildly elevated; no rise in AG. No metabolic acidosis on ABG. - patient started on levemir in hospital. ISS AC and HS - will bring insulin pump from home - r/o infection in setting of hyperglycemia. Questionable CKD - Cr 1.1 to 1.4 - Cr appears to be at baseline Diastolic CHF - No evidence of exacerbation - recent echo on 12/07/20, normal LVEF. G1DD. PVD s/p Angioplasty - s/p Bilateral BKA - Patient has had a recent admission for R sump osteomyelitis with Staph Epidermidis - Has been on Linezolid as an outpatient (instructions to stop antibiotics on 01/20/2021); however had stopped sooner - Scheduled for surgery with Dr. Mesa - Will check blood cultures / Procalcitonin / ESR / CRP - s/p Zosyn in the ER - c/w ASA; plavix has been resumed. - s/p washout of R stump by Dr. Jones, POD #4 - evaluated by Dr. Ledesma, wound care instructions ordered. D/w Dr. Jones, recommends against additional CT angio of R leg. - start vanco, zosyn due to elevated procal, hyperglycemia. - patient has remained afebrile, without leukocytosis. He does not have elevation of ESR or CRP. Procal is mildly elevated at 0.35. The wound is presently packed with wound vac. It will be changed on 01/17/21 - at this point, my suspicion for infection is low. - I anticipate DC on 01/17/21. 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 Plan is for family to bring prosthesis from home. PT/OT prior to DC. VS, I&O, 24H, Fishbone Vital Signs/I&O Vital Signs Date Time Temp Pulse Resp B/P (MAP) Pulse Ox O2 Delivery O2 Flow Rate FiO2 01/16/21 08:16 72 117/63 01/16/21 07:32 97.8 18 97 Room Air I&O- Last 24 Hours up to 6 AM 01/16/21 06:00 Intake Total 4840 ml Output Total 5875 ml Balance -1035 ml Laboratory Data 24H LABS Laboratory Tests 2 01/15/21 11:09: Blood Gas Bicarbonate Standard 23.9, Arterial Blood pH 7.466H, Arterial Blood Partial Pressure CO2 31.9L, Arterial Blood Partial Pressure O2 133.4H, Arterial Blood Total CO2 23.5, Arterial Blood HCO3 22.5, Arterial Blood Base Excess -0.7, Arterial Blood Oxygen Saturation 98.4 01/15/21 11:14: Erythrocyte Sedimentation Rate 15, Lactic Acid Level 3.8*H, C-Reactive Protein, Quantitative < 0.30 01/15/21 11:15: Procalcitonin 0.35 01/15/21 11:24: Bedside Glucose (Misc Panel) 394H 01/15/21 13:00: Bedside Glucose (Misc Panel) 301H 01/15/21 14:30: Lactic Acid Level 2.5*H 01/15/21 14:31: Anion Gap 6L, Glomerular Filtration Rate > 60.0, Calcium Level 8.4L, Phosphorus Level 1.4L, Magnesium Level 2.2 01/15/21 17:24: Bedside Glucose (Misc Panel) 71L 01/15/21 17:58: Bedside Glucose (Misc Panel) 95 01/15/21 19:07: Lactic Acid Level 1.6 01/15/21 20:30: Bedside Glucose (Misc Panel) 318H 01/16/21 04:28: Immature Granulocyte % (Auto) 0.8, Neutrophils (%) (Auto) 67.5H, Lymphocytes (%) (Auto) 19.1L, Monocytes (%) (Auto) 10.8H, Eosinophils (%) (Auto) 1.5, Basophils (%) (Auto) 0.3, Neutrophils # (Auto) 4.5, Lymphocytes # (Auto) 1.3L, Monocytes # (Auto) 0.7, Eosinophils # (Auto) 0.1, Basophils # (Auto) 0.0, Nucleated Red Blood Cells % (auto) 0.0, Erythrocyte Sedimentation Rate 6, Anion Gap 5L, Glomerular Filtration Rate > 60.0, Calcium Level 7.8L, Phosphorus Level 3.4#, Magnesium Level 1.6L, C-Reactive Protein, Quantitative < 0.30 01/16/21 07:45: Bedside Glucose (Misc Panel) 358H 01/16/21 08:56: CBC/BMP Laboratory Tests 01/15/21 14:31 01/16/21 04:28 Microbiology Microbiology 01/15/21 Blood Culture, Received Pending 01/15/21 Blood Culture, Received Pending 01/15/21 Blood Culture, Received Pending 01/10/21 Blood Culture - Final, Complete NO GROWTH AFTER 5 DAYS 01/10/21 Blood Culture - Final, Complete NO GROWTH AFTER 5 DAYS DOUG MULLIGAN MD Jan 16, 2021 11:12
[2021-01-16 12:26] VITALS: BP 104/51
[2021-01-16 16:00] VITALS: BP 124/62
[2021-01-16] MEDS ORDERED: HumaLOG INSULIN (NovoLOG) PER UNIT SC SCH (17:30)
[2021-01-16 19:24] VITALS: BP 126/61
[2021-01-17] VITALS: BP 136/63
[2021-01-17 04:00] VITALS: BP 140/65
[2021-01-17] MEDS: PIPERACILLIN/TAZOBACTAM SOD 4.5 GM in D5W MINI-BAG PLUS 50 ML IV SCH ×2 (04:53→11:17)
[2021-01-17] MEDS: VANCOMYCIN HCL 1,000 MG, VIAL MATE ADAPTER 1 EACH in NS 250 ML IV SCH (05:26)
[2021-01-17] MEDS: SODIUM CHLORIDE 0.9% INJ 10 ML SYR IV SCH (05:26)
[2021-01-17 05:28] LABS: BASO % 0.6 % (0.0-1.0); EOS # 0.1 10^3/uL (0.0-0.5); EOS % 2.7 % (0.0-3.0); HEMATOCRIT 26.3 % (42.0-52.0); LYMPH # 1.1 10^3/uL (1.5-5.0); LYMPH % 22.1 % (24.0-44.0); MEAN CORPUSCULAR HEMOGLOBIN 30.4 pg (27.0-33.0); MEAN CORPUSCULAR HGB CONC 34.2 g/dl (32.0-36.5); MEAN CORPUSCULAR VOLUME 88.9 fl (80.0-96.0); MONO # 0.6 10^3/uL (0.0-0.8); MONO % 11.9 % (2.0-8.0); NEUTROPHILS # 3.2 10^3/uL (1.5-8.5); NEUTROPHILS % 62.1 % (36.0-66.0); PLATELET COUNT, AUTOMATED 249 10^3/uL (150-450); RED BLOOD COUNT 2.96 10^6/uL (4.30-6.10); WHITE BLOOD COUNT 5.1 10^3/uL (4.0-10.0)
[2021-01-17 06:06] LABS: BLOOD UREA NITROGEN 15 MG/DL (7-18); CALCIUM LEVEL 8.3 MG/DL (8.8-10.2); CARBON DIOXIDE LEVEL 32 MEQ/L (21-32); CHLORIDE LEVEL 108 MEQ/L (98-107); CREATININE FOR GFR 1.16 MG/DL (0.70-1.30); GLOMERULAR FILTRATION RATE > 60.0 (>49); GLUCOSE, FASTING 74 MG/DL (70-100); MAGNESIUM LEVEL 1.7 MG/DL (1.8-2.4); POTASSIUM SERUM 3.9 MEQ/L (3.5-5.1); SODIUM LEVEL 143 MEQ/L (136-145); VANCOMYCIN LEVEL TROUGH 14.8 UG/ML (10.0-20.0)
[2021-01-17 08:00] VITALS: BP 138/75
[2021-01-17] MEDS: FERROUS SULFATE 325MG TAB PO SCH (09:40)
[2021-01-17] MEDS: CitaloPRAM (CeleXA) 20 MG TAB PO SCH (09:40)
[2021-01-17] MEDS: PANTOPRAZOLE 40MG VIAL (C9113 PER 1) IV SCH (09:40)
[2021-01-17] MEDS: SUCRALFATE SUSP 1GM/10ML UD PO SCH ×2 (09:40→12:26)
[2021-01-17] MEDS: FINASTERIDE 5 MG TAB PO SCH (09:40)
[2021-01-17 09:41] VITALS: BP 138/75
[2021-01-17] MEDS: CLOPIDOGREL 75 MG TAB PO SCH (09:41)
[2021-01-17] MEDS: GABAPENTIN 300 MG CAP PO SCH (09:41)
[2021-01-17] MEDS: amLODIPine 5 MG TAB PO SCH (09:41)
[2021-01-17] MEDS: ATORVASTATIN 20 MG TAB PO SCH (09:41)
[2021-01-17] MEDS: predniSONE 5 MG TAB PO SCH (09:42)
[2021-01-17] MEDS: predniSONE 1 MG TAB PO SCH (09:42)
[2021-01-17] MEDS: ASPIRIN 81MG ENTERIC TABLET PO SCH (09:42)
[2021-01-17] MEDS: MULTIVITAMINS/MINERALS THERAP 1 TAB PO SCH (09:42)
[2021-01-17] MEDS: MAG SULF 1GM/100ML (MAG RUN) 1 GM in IV 1 EA IV SCH ×2 (12:25→13:46)
--- NOTE | 2021-01-17 13:03 | DS.PDOC ---
Discharge Summary General Date of Admission Jan 10, 2021 at 10:28 Date of Discharge 01/17/21 Discharge Summary PROCEDURES PERFORMED DURING STAY: DATE OF OPERATION: 01/10/2021 PREOPERATIVE DIAGNOSIS: Need for vascular access, diabetic ketoacidosis. POSTOPERATIVE DIAGNOSIS: Need for vascular access, diabetic ketoacidosis. PROCEDURE: Insertion of left subclavian central line. SURGEON: YOEL NAVARRO M.D. DESCRIPTION OF PROCEDURE: The patient was prepped and draped in the usual sterile fashion over the left midclavicular fossa. The fossa was infiltrated with 1% Lidocaine. The subclavian was then found on the first pass and a wire was placed without difficulty. The tract was dilated and a triple lumen catheter was placed. Ports were aspirated and flushed and flowed freely. The catheter was secured to the chest wall with 2-0 silk suture. The patient tolerated the procedure well. A chest x-ray is pending. DD: Yoel Navarro M.D. 01/10/21 0837 PROCEDURE: R BKA STUMP DEBRIDEMENT PERFORMED BY: DR. KEVIN DATE: 01/12/21 REPORT FORTHCOMING. PROCEDURE: UPPER GI ENDOSCOPY PERFORMED BY DR. CAPPS DATE: 01/13/21. Findings: LA Grade C (one or more mucosal breaks continuous between tops of 2 or more mucosal folds, less than 75% circumference) esophagitis with no bleeding was found in the distal esophagus. Patchy moderately erythematous mucosa without bleeding was found in the gastric fundus - suggestive of emesis gastropathy.. An acquired benign-appearing, intrinsic moderate stenosis was found in the first portion of the duodenum and was traversed. Impression: - LA Grade C reflux esophagitis. - Erythematous mucosa in the gastric fundus.( emesis gastropathy). - Acquired duodenal stenosis. - No specimens collected. Recommendation: - Patient has a contact number available for emergencies. The signs and symptoms of potential delayed complications were discussed with the patient. Return to normal activities tomorrow. Written discharge instructions were provided to the patient. - Mechanical soft diet and soft diet. - Continue present medications. - Use Protonix (pantoprazole) 40 mg PO twice daily - to be taken in morning (1/2 hour before breakfast) and at bedtime ( atleast 3 hours after last meal) for 3 months. - Use sucralfate suspension 1 gram PO QID for 4 weeks. - Resume Plavix (clopidogrel) at prior dose today. Refer to primary physician for further adjustment of therapy. - Return to GI clinic in 2 months. - Return to primary care physician. ADMITTING DIAGNOSES: Acute blood loss anemia possible 2/2 upper GIB Lactic acidosis Nausea and vomiting IDDM1 with hypoglycemia Suspected CKD Hx of Diastolic CHF Hx of PVD s/p angioplasty DLP Hx of DVT, not on AC at this time BPH Hx of Giant Cell Arterities Hx of Covid-19 infection Hx of Depression GERD Glaucoma DISCHARGE DIAGNOSES: Acute blood loss anemia possible 2/2 upper GIB Lactic acidosis Nausea and vomiting IDDM1 with hypoglycemia Suspected CKD Hx of Diastolic CHF Hx of PVD s/p angioplasty DLP Hx of DVT, not on AC at this time BPH Hx of Giant Cell Arterities Hx of Covid-19 infection Hx of Depression GERD Glaucoma COMPLICATIONS/CHIEF COMPLAINT: Abd Pain, Anemia, Ugi Bleed. HISTORY OF PRESENT ILLNESS: Obtained from HPI: "Patient is a 60-year-old Caucas erika male who presented to the emergency room with complaints of glucose problems. Patient notes that this has been an ongoing problem for the last 5 days. He is a Type I diabetic and uses an insulin pump. Patient reports that over the last 5 days he has been experiencing nausea and vomiting with multiple episodes of vomiting throughout the day. Most recent vomiting episode was in the emergency room with blood noted in the vomitus. Patient reports associated upper abdominal pain, reported right at the epigastrium. Reports the pain as 8/10 continuous, non-radiating without any alleviating or elevating factors. Patient reports his last meal was several days ago. Denies any chest pain, short of breath, cough or palpitations. Denies any constipation or diarrhea. Reports her last bowel movement was 2 days ago with brown colored stool. Denies any urinary discomfort. Patient denies any fevers but does report chills while at home. Reports a poor appetite currently and denies any changes in his weight. In the ER, providers had contacted cardiothoracic surgery for placement of a left subclavian catheter is of poor access." HOSPITAL COURSE: Acute blood loss anemia - possibly 2/2 Upper GI bleed - patient's nausea and vomiting have resolved. - Hgb 7.5 on admission, received 2 units pRBC, improved to 10.6, with slow decrease to 9.2. - C/w ASa 81 mg. Plavix is held since 01/11/21. - c/w protonix, carafate. - Consulted GI; case discussed with Dr. Capps -EGD performed on 01/13/2021: Reflux esophagitis seen, emesis gastropathy, acquired duodenal stenosis. Recommended for mechanical soft diet. Use pantoprazole 40 mg twice daily. C/w sucralfate 1 g p.o. 4 times daily for 4 weeks. Plavix resumed. - hgb remains stable. Lactic acidosis - in setting of hyperglycemia, criteria for DKA not met - resolved after administration of IVF. IDDM1 with hypoglycemia - uses insulin pump at home - patient was hyperglycemic, BG> 500 - ketones mildly elevated; no rise in AG. No metabolic acidosis on ABG. - patient started on levemir in hospital. ISS AC and HS - brought home insulin pump, replenished through pharmacy - BG stablized with assistance of insulin pump use - infectious process unlikely, downtrending procal, no WBC elevation, no fever. R BKA stump examined without wound vac, margins are clean. No erythema. No purulence. Questionable CKD - Cr 1.1 to 1.4 - Cr appears to be at baseline Diastolic CHF - No evidence of exacerbation - recent echo on 12/07/20, normal LVEF. G1DD. PVD s/p Angioplasty - s/p Bilateral BKA - Patient has had a recent admission for R sump osteomyelitis with Staph Epidermidis - Has been on Linezolid as an outpatient (instructions to stop antibiotics on 01/20/2021); however had stopped sooner - Will check blood cultures / Procalcitonin / ESR / CRP - s/p Zosyn in the ER - c/w ASA; plavix has been resumed. - s/p washout of R stump by Dr. Kevin on 01/12/21 - evaluated by Dr. Ledesma, wound care instructions ordered. D/w Dr. Christopher andersen, recommends against additional CT angio of R leg. - started vanco, zosyn due to elevated procal, hyperglycemia. - patient has remained afebrile, without leukocytosis. He does not have elevat ion of ESR or CRP. Procal is mildly elevated at 0.35. The wound is presently packed with wound vac. - at this point, my suspicion for infection is low. Antibiotics were DC. - wound vac changed on day of DC, examined, Wound margins clean, no purulence, no surrounding erythema to indicate cellulitis. 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 ALLERGIES: Please see below. PHYSICAL EXAMINATION ON DISCHARGE: VITAL SIGNS: please see below General: NAD, comfortable HEENT: PERRLA, EOMI, sclerae clear Neck: supple, normal ROM, no JVD Respiratory: lungs CTAB, no wheeze, no rales, no crackles CVS: RRR, normal S1, S2, no murmurs Abdo: soft, no masses, no hepatosplenomegaly, BS+, no rebound tenderness Extremities: no edema, pulses 2+ MSK: bilateral BKAs, R stump clean. No surrounding cellulitis near the wound vac . Neuro: no focal neuro deficits, moving all 4 extremities, CN2-12 intact. Strength 5/5 in all 4 extremities. No nystagmus. Psych: calm, cooperative, AAO x 3 LABORATORY DATA: Please see below. IMAGING: CXR (01/10/21): IMPRESSION: Left subclavian catheter with tip in the SVC. No pneumothorax. No obvious focal consolidation or effusion. CT abdo pelvis (01/10/21): FINDINGS: Liver, spleen, pancreas, gallbladder, and bilateral adrenal glands are normal. Kidneys again demonstrate bilateral nonobstructing nephroliths up to 7 mm without acute perinephric stranding, hydroureteronephrosis or obstructing ureteral calculus. Hiatal hernia at the gastroesophageal junction noted. No evidence for bowel obstruction or acute inflammatory process. Sigmoid diverticula noted without acute diverticulitis.. Pelvis demonstrates normal bladder and age-appropriate prostate/seminal vesicles. No ascites. No free air. No intraperitoneal or retroperitoneal adenopathy. Abdominal aorta demonstrates atherosclerotic changes without aneurysm or dissection.. Musculoskeletal structures demonstrate degenerative changes without acute process. IMPRESSION: No acute abdominopelvic pathology appreciated. Bilateral nephrolithiasis. Diverticulosis without acute diverticulitis. PROGNOSIS: good ACTIVITY: home health PT. Use prosthesis. Wheelchair. DIET: consistent carbohydrate. DISCHARGE PLAN: DC home with home health, wound care for wound vac exchanges. Follow up with PCP, GI and vascular surgery. Has appt on 02/03/21. Continue to take pantoprazole 40 mg BID x 3 months, as well as carafate AC and HS. DISPOSITION: home with services. ITEMS TO FOLLOWUP ON ON OUTPATIENT: Final blood cultures. DISCHARGE CONDITION: [Stable]. TIME SPENT ON DISCHARGE: 35 minutes Vital Signs/I&Os Vital Signs Date Time Temp Pulse Resp B/P (MAP) Pulse Ox O2 Delivery O2 Flow Rate FiO2 01/17/21 09:41 78 138/75 01/17/21 08:00 98.4 18 97 Room Air I&O- Last 24 Hours up to 6 AM 01/17/21 06:00 Intake Total 1340 ml Output Total 2775 ml Balance -1435 ml Laboratory Data Labs 24H Laboratory Tests 2 01/16/21 14:03: Bedside Glucose (Misc Panel) 137H 01/16/21 16:31: Bedside Glucose (Misc Panel) 57L 01/16/21 16:59: Bedside Glucose (Misc Panel) 80 01/16/21 20:56: Bedside Glucose (Misc Panel) 245H 01/17/21 04:45: Anion Gap 3L, Glomerular Filtration Rate > 60.0, Calcium Level 8.3L, Magnesium Level 1.7L, Vancomycin Level Trough 14.8 01/17/21 05:20: Immature Granulocyte % (Auto) 0.6, Neutrophils (%) (Auto) 62.1, Lymphocytes (%) (Auto) 22.1L, Monocytes (%) (Auto) 11.9H, Eosinophils (%) (Auto) 2.7, Basophils (%) (Auto) 0.6, Neutrophils # (Auto) 3.2, Lymphocytes # (Auto) 1.1L, Monocytes # (Auto) 0.6, Eosinophils # (Auto) 0.1, Basophils # (Auto) 0.0, Nucleated Red Blood Cells % (auto) 0.0 01/17/21 11:21: Bedside Glucose (Misc Panel) 254H CBC/BMP Laboratory Tests 01/17/21 04:45 10/18/21 05:20 FSBS Laboratory Tests Test 01/16/21 14:03 01/16/21 16:31 01/16/21 16:59 01/16/21 20:56 Range/Units Bedside Glucose (Misc Panel) 137 57 80 245 80-115 MG/DL Test 01/17/21 11:21 Range/Units Bedside Glucose (Misc Panel) 254 80-115 MG/DL Microbiology Microbiology 01/15/21 Blood Culture - Preliminary, Resulted No growth after 24 hours . All specim... 01/15/21 Blood Culture - Preliminary, Resulted No Growth after 48 hours. All Specime... 01/15/21 Blood Culture - Preliminary, Resulted No Growth after 48 hours. All Specime... 01/10/21 Blood Culture - Final, Complete NO GROWTH AFTER 5 DAYS 01/10/21 Blood Culture - Final, Complete NO GROWTH AFTER 5 DAYS Discharge Medications Scheduled Amlodipine Besylate (Norvasc) 5 Mg Tablet, 5 MG PO BID, (Reported) Aripiprazole (Abilify) 5 Mg Tablet, 5 MG PO DAILY, (Reported) Aspirin (Aspirin EC) 81 Mg Tablet.dr, 81 MG PO DAILY, (Reported) Atorvastatin Calcium (Atorvastatin Calcium) 40 Mg Tablet, 40 MG PO DAILY, (Reported) Citalopram Hydrobromide (Citalopram HBr) 40 Mg Tablet, 40 MG PO DAILY, (Reported) Clopidogrel Bisulfate (Plavix) 75 Mg Tablet, 75 MG PO DAILY Ferrous Sulfate (Ferrous Sulfate) 325 Mg Tab, 325 MG PO QWEEK, (Reported) SUNDAY Finasteride (Finasteride) 5 Mg Tablet, 5 MG PO DAILY, (Reported) Gabapentin (Gabapentin) 300 Mg Capsule, 300 MG PO BID, (Reported) Insulin Human Lispro (Novolog) 100 Unit/1 Ml Vial, 1 DOSE SC ASDIRECTED, (Reported) SLIDING SCALE. UP TO 100 UNITS DAILY CONTINUOUS THROUGH INSULIN PUMP Linezolid (Linezolid) 600 Mg Tablet, 600 MG PO BID, (Reported) Multivitamins (Thera M Plus Tablet) 1 Each Tablet, 1 TAB PO DAILY, (Reported) Pantoprazole Sodium (Pantoprazole Sodium) 40 Mg Tablet.dr, 40 MG PO BID Prednisone (Prednisone) 1 Mg Tablet, 3 MG PO DAILY, (Reported) TAKES WITH 5MG FOR 8MG TOTAL Prednisone (Prednisone) 5 Mg Tablet, 5 MG PO DAILY, (Reported) TAKE WITH 3MG FOR 8MG TOTAL Sucralfate (Sucralfate) 1 Gm/10 Ml Oral.susp, 1 GM PO ACHS Scheduled PRN Acetaminophen (Acetaminophen) 325 Mg Tablet, 650 MG PO Q4H PRN for MILD PAIN or TEMP > 101 Docusate Sodium (Stool Softener) 100 Mg Capsule, 100 MG PO DAILY PRN for CONSTIPATION, (Reported) Glucagon,Human Recombinant (Glucagon Emergency Kit) 1 Mg Vial, 1 MG IM ASDIRECTED PRN for LOW BLOOD SUGAR, (Reported) Allergies Coded Allergies: No Known Allergies (Unverified , 03/01/20) DOUG MULLIGAN MD Jan 17, 2021 13:03
[2021-01-17 15:54] VITALS: BP 144/63
[2021-02-10] MEDS ORDERED: LISI-898 (16:01)
== END 2021-01-17 16:27 | disposition home health service (06) | DRG 982 ==
LOC: M ED 05:25 → M ED INP 10:28 → ENRESERV 11:30 → M PCU 13:47
PROVIDERS: ADMIT Internal Medicine; ATTEND Family Medicine
PROC: 30233N1 Transfusion of Nonautologous Red Blood Cells into Peripheral Vein, Percutaneous Approach (ICD-10-PCS; 2021-01-10)
PROC: 05H633Z Insertion of Infusion Device into Left Subclavian Vein, Percutaneous Approach (ICD-10-PCS; 2021-01-10)
PROC: 0LBN0ZZ Excision of Right Lower Leg Tendon, Open Approach (ICD-10-PCS; principal; 2021-01-12 12:45)
PROC: 0DJ08ZZ Inspection of Upper Intestinal Tract, Via Natural or Artificial Opening Endoscopic (ICD-10-PCS; 2021-01-13)
DX: K92.2 Gastrointestinal hemorrhage, unspecified (principal); D62 Acute posthemorrhagic anemia; E87.2 Acidosis; I50.32 Chronic diastolic (congestive) heart failure; E10.649 Type 1 diabetes mellitus with hypoglycemia without coma; E10.51 Type 1 diabetes mellitus with diabetic peripheral angiopathy without gangrene; E10.22 Type 1 diabetes mellitus with diabetic chronic kidney disease; N18.9 Chronic kidney disease, unspecified; T87.81 Dehiscence of amputation stump; E10.65 Type 1 diabetes mellitus with hyperglycemia; Z79.899 Other long term (current) drug therapy; Z79.82 Long term (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; Z79.4 Long term (current) use of insulin; K21.9 Gastro-esophageal reflux disease without esophagitis; N40.0 Benign prostatic hyperplasia without lower urinary tract symptoms

== ENCOUNTER 2021-02-10 15:33 | Emergency (ER) | payer MEDICARE, MEDICAID ==
[~2021-02-10] VITALS: Ht 175.3 cm; Wt 74.5 kg
[~2021-02-10 15:33] MED LIST changes: +ACET1TAB55 PO; +SUCR1ORA PO
[2021-02-10] MEDS ORDERED: LISI-898 PO (16:01)
[2021-02-10 17:46] VITALS: BP 126/71
--- OUTSIDE RECORDS SUMMARY | 2021-02-10 18:15 | CCD | Continuity of Care Document ---
Author Author Hermann KEVIN MD Organization Unknown Address [address], [address] [place] [address] Phone [phone] Care Team Providers Care Aged Or Disabled Care Worker Name Role Phone Christelle Cook M.D. AUTM [phone] AUTM Unavailable Job Rapheal MD AUTM [phone] [facility] - Medical Records AUTM Kanu Velazquez M.D. AUTM [phone] AUTM Unavailable Alayna Simpson M.D. AUTM [phone] Problems Active Problems Provider Date Hemorrhage of rectum and anus VICTORIANO Santiago On set: 09/26/2016 Anemia Brisarhoda Cobb RPA-C Onset: 09/26 Epigastric pain Brisa Cobb RPA-Siobhan Onset: 09/26 Otalgia Shravan Velasquez MD Onset: 09/26/2016 Chronic infection of amputation stump Anais Kevin MD Onset: 12/17/2020 Traumatic wound dehiscence Anais Kevin MD Onset: 12/17/2020 Peripheral vascular disorder due to diabetes mellitus Anais Kevin MD Onset: 01/06/2021 Hypoglycemia Anais Kevin MD Onset: 2020 Social History Type Date Description Comments Sex Unknown ETOH Use Denies alcohol use Tobacco Use Start: Unknown Non Smoker Recreational Drug Use Denies Drug Use Smoking Status Reviewed: 05/28/20 Non Smoker Allergies and adverse reactions Description No Known Drug Allergies Medications Active [...] as directed Lester Echevarria M.D. 08/23/2017 Stump Stitch Cleaner To Left BKA as directed Lester Echevarria M.D. 08/23/2017 Referral For Evaluation And Treat To [facility] Lester Echevarria M.D. 08/22/2017 Clopidogrel Bisulfate 75mg [...] 1 by mouth every day Unknown Prednisone 5mg Tablets 1 5 mg tab and 3 1 mg tab qd Unknown Aspir-Low 81mg Tablets DR 1 by mouth every day Unknown Latanoprost 0.005% Solution at bedtime Unknown Novolog 100Unit/ML Solution use in insulin pump as directed Unknown Citalopram Hydrobromide 40mg Table ts daily Unknown Tylenol 325mg Tablets as need ed Unknown Immunizations Description No Information Available Vital Signs Date Vital Result Comment 02/03/2021 9:02am BP Systolic 109 mmHg BP Diastolic 65 mmHg Heart Rate 82 /min Body Temperature 98.8 F Height 69 inches 5'9" Weight 164.00 lb BMI (Body Mass Index) 24.2 kg/m2 [place] Body Weight 160 lb Weight 74.390 kg BSA (Body Surface Area) 1.90 m2 01/06/2021 11:53am BP Systolic 138 mmHg BP Diastolic 80 mmHg Body Temperature 97.9 F Height 69 inches 5'9" Weight 152.00 lb BMI (Body Mass Index) 22.4 kg/m2 [place] Body Weight 160 lb Weight 68.947 kg BSA (Body Surface Area) 1.84 m2 Results Description No Information Available Procedures Date Code Description Status 01/12/2021 90401 Debridement Skin, Subcutaneous T issue & Muscle Completed 12/08/2020 38647 Re-Amputation Leg Completed 11/11/2020 08294 Office/Outpatient Established Lo w MDM 20-29 Min Completed 11/01/2020 24062 Office/Outpatient Established Lo w MDM 20-29 Min Completed 08/12/2020 68016 Office/Outpatient Established Lo w MDM 20-29 Min Completed Medical Devices Description No Information Available Encounters Type Date Location Provider Dx Diagnosis Office Visit 01/06/2021 11:45a [facility] Karen Kevin MD T81.30xA Disruption of wound, unspeci fied, initial encounter 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.1 Other hypoglycemia Office Visit 12/17/2020 1:00p [facility] Karen Kevin MD T87.43 Infection of amputation stum p, right lower extremity T81.30xA Disruption of wound, unspeci fied, initial encounter Z89.511 Acquired absence of right le g below knee Office Visit 11/11/2020 8:30a [facility] Manuel salinas MD Z89.511 Acquired absence of right leg below knee T87.89 Other complications of amput ation stump Office Visit 11/01/2020 2:30p [facility] Ranjeet frank MD T81.30xA Disruption of wound, unspecified, initia l encounter Office Visit 08/12/2020 11:[address]a [facility] Kathy angeles MD Z89.511 Acquired absence of right leg below knee Z47.81 Encounter for orthopedic aft ercare following surgical amp Assessments Date Code Description Provider 01/12/2021 T81.30xA Disruption of wound, unspecified , initial encounter Anais Kevin MD 01/06/2021 T81.30xA Disruption of wound, unspecified , initial encounter Anais Kevin MD 01/06/2021 E11.59 Type 2 diabetes mellitus with ot her circulatory complications Anais Kevin MD 01/06/2021 E16.1 Other hypoglycemia Anais Kevin MD 12/17/2020 T87.43 Infection of amputation stump, r ight lower extremity Anais Kevin MD 12/17/2020 T81.30xA Disruption of wound, unspecified , initial encounter Anais Kvein MD 12/17/2020 Z89.511 Acquired absence of right leg be low knee Anais Kevin MD 12/08/2020 T87.43 Infection of amputation stump, r ight lower extremity Anais Kevin MD 11/11/2020 Z89.511 Acquired absence of right leg be low knee Manuel Jeffrey MD 11/11/2020 T87.89 Other complications of amputatio n stump Manuel Jeffrey MD 11/01/2020 T81.30xA Disruption of wound, unspecified , initial encounter Ranjeet Platt MD 08/12/2020 Z89.511 Acquired absence of right leg be low knee Kathy Boss MD 08/12/2020 Z47.81 Encounter for orthop edic aftercare following surgical amputation Kathy Boss MD Plan of Treatment Future Appointment(s):* 03/30/2021 10:00 am - Kanu Velazquez M.D. at [facility] 01/06/2021 - Anais Kevin MD* T81.30xA Disruption of wound, unspecified, initial encounter* Comments:* Moderate amount of necrotic slough, in the right below-knee amputation stump wound, which requires debridement, to enable the healing of the wound. The bone is not exposed. There is no gross purulence.Plan:Debridement will be scheduled, in the operating room as a same- day procedure in the near futurePatient and his sister understand to the plan of care, and wished to proceed * E11.59 Type 2 diabetes mellitus with other circulatory complications* Comments:* Has an insulin pump-follows up with plastic boat patcher * E16.1 Other hypoglycemia* Comments:* See #2 Functional Status Description No Information Available Mental Status Description No Information Available Referrals Description No Information Available
--- OUTSIDE RECORDS SUMMARY | 2021-02-10 18:15 | CCD ---
Author Author [facility] Organization [facility] Address Unknown Phone Unavailable Care Team Providers Care Senior Professional Services Consultant Name Role Phone Alayna Simpson Unavailable PROBLEMS Type Condition ICD9-CM Code [id number] Code Onset Dates Condition S tatus W/U Status Risk SNOMED Code Notes Problem Chronic obstructive pulmonary disease, unspecified COPD ty pe J44.9 Active confirmed 84968366 Problem Essential hypertension I10 Active confirmed 70941228 Problem Temporal arteritis M31.6 Active confirmed 4 35973646 Problem 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 L97.519 Active confirmed Problem Type 1 diabetes mellitus with foot ulcer E10.621 Active confirmed 029585212989469 Problem Adrenal insufficiency E27.40 Active confirmed 979297742 Problem Anemia of chronic disease D63.8 Active confirmed 776839426 Problem History of left below knee amputation Z89.512 Ac tive confirmed 935183512 Problem Cataract of both eyes, unspecified cataract type H 26.9 Active confirmed 05857284 Problem Chronic gastritis without bleeding, unspecified gastri tis type K29.50 Active confirmed 16592779 Problem PVD (peripheral vascular disease) I73.9 Active confirmed 400075640 Problem 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 9 Active confirmed 1678501279197455 Problem Pancytopenia D61.818 Active confirmed 860839 005 Problem Autonomic instability G90.9 Active confirmed 57323686 Problem Osteomyelitis of other site, unspecified type M86. 9 Active confirmed 77819335 Problem Type 1 diabetes mellitus with complication E10.8 Active confirmed 76780566 Problem Bipolar 1 disorder F31.9 Active confirmed 3 66077228 Problem Amputation below knee S88.119A Active confirmed 182001545 Problem Acquired absence of left leg below knee Z89.512 Active confirmed 702096133830499 Problem Acquired absence of right leg below knee Z89.511 Active confirmed 852044934 Problem Below-knee amputation of right lower extremity S88 .111A Active confirmed 512754014 ALLERGIES No Known Allergies ENCOUNTERS from 1960 to 2021-01-25 Encounter Location Date Provider Diagnosis [address] [phone] Omkar Duran [place] [address] Dec, [facility] discharge follow-up Z09 and Gastric bleed K92.2 IMMUNIZATIONS Vaccine Route Administration Date Status Influenza 18 yrs & older Flublok IM Intramuscular Jan 22, 2019 Administered Influenza 18 yrs & older Flublok IM Intramuscular Dec 27, 2017 Administered Pneumococcal Adult 0.5mL Pneumovax 23 IM Intramuscular Mar 02 016 Administered Pneumococcal 0.5mL Prevnar 13 IM Intramuscular Nov 15, 2017 A dministered Influenza 6mo & up Fluzone Unknown Feb 16, 2017 Admin istered Influenza 6mo & up Fluzone IM Intramuscular Mar 02, 2016 Admi nistered SOCIAL HISTORY Tobacco Use: Social History Observation Description Date Details (start date - stop date) Former Smoker Sex Assigned At : Social History Observation Description Sex Assigned At Unknown Education: Question Answer Notes Level of Education: High School Language: Question Answer Notes Languages spoken: Angolan Druze: Question Answer Notes [employer] Alcohol Screening: Question Answer Notes Did you [...] FOR REFERRAL No Information VITAL SIGNS Weight 154.4 lbs Dec, Height 69 in Dec, BMI 22.80 kg/m2 Dec, Heart Rate 78 /min Dec, Respiratory Rate 18 /min Dec, Temperature 97.6 degrees Fahrenheit Dec, Oximetry 97 Dec, Blood pressure systolic 146 mm Hg Dec, Blood pressure diastolic 66 mm Hg Dec, MEDICATIONS Medication SIG (Take, Route, Frequency, Duration) Notes Start Da te End Date Status Pantoprazole Sodium 40 MG 1 tablet Orally bid for 30 Days Not-Taking Gabapentin 300 MG 1 cap Orally bid for 90 day(s) Active Bisacodyl 10 MG 1 suppository as needed Rectal Once a day for 1 day(s) Dec, Not-Taking Aspirin Adult Low Dose 81 MG 1 tablet Orally Once a day Active Finasteride 5 MG 1 tablet Orally Once a day for 90 days Active Glucagon (rDNA) 1 MG as directed Injection Active predniSONE 1 MG 3tablets with 5 mg tab for total of 9mg Orally O nce a day Jul, Active Pantoprazole Sodium 40 MG 1 tablet Orally Once a day for 30 day(s) Active ARIPiprazole 5 MG 1 tablet Orally Once a day for 90 days 0 Jul, Active Lisinopril 5 MG 1 tablet Orally Once a day for 30 day(s) Active Atorvastatin Calcium 40MG 1 tablet Orally Once a day for 90 day(s) Active NovoLOG 100 UNIT/ML as directed Subcutaneous Ins ulin pump, pump up to 100 units daily sliding scale July, Not-Taking Ferrous Sulfate 325 (65 Fe) MG 1 tablet Orally weekly for 90 day (s) once a week Active Clopidogrel Bisulfate 75 MG 1 tablet Orally Once a day for 90 day(s) Active predniSONE 5 MG 1 tablet with 41 mg tablets for a total of 9 mg Orally Once a day July, Active Latanoprost 0.005 % 1 drop into affected eye in the evening Ophthalmic left eye Once a day July, Not-Taking CeleXA 40 MG 1 tab Orally Once a day Apr, Not-Taking Colace 100 MG 1 capsule as needed Orally Once a day for 30 day (s) Dec, Not-Taking Protonix 40 MG 1 tablet Orally bid changed to BID July, Not-Taking Linezolid 600 MG 1 tablet Orally every 12 hrs for 10 day(s) Not-Taking Brimonidine Tartrate 0.1 % 1 drop into affected eye Ophthalmic ever y 8 hrs Active Ketoconazole 2 % 1 application to affected ar ea of face Externally Once a day for 14 days Aug, Not-Taking PROCEDURES No Information RESULTS No Results REASON FOR VISIT [facility] D/C 01/17 MEDICAL (GENERAL) HISTORY Type Description Date Medical [...] History right leg amputation 03/04/2020 Hospitalization History [facility] 10/2016 Hospitalization History hypoglycemia 12/02/2016-12/12/19 17 Hospitalization History autonomic instability 04/02/201707/2017 Hospitalization History hypergycemia 08/04/2019- 0 Hospitalization History leg amputation 03/04/2020 Hospitalization History [facility] 05/04/2020- 1 Hospitalization History [facility] 08/15/2020 Hospitalization History amputation site infection 08/04- 021 Hospitalization History Low Blood Sugar 12/19/2020 Goals Section No Information Health Concerns No Information MEDICAL EQUIPMENT No Information MENTAL STATUS No Information FUNCTIONAL STATUS No Information ASSESSMENTS Encounter Date Diagnosis Assessment Notes Treatment Notes Treatm ent Clinical Notes Dec, Hospital discharge follow-up (ICD-10 - Z09) Report Vitals within normal range. Patient is feeling and doing well at this time. Patient is status post hospitalization from 01/10/2021 to 01/17/2021 for upper GI bleed. Patient denies any further episodes of hematemesis. He denies any hematochezia. He denies any malaise or weakness. Reports right stump osteomyelitis is pretty much healed. Home health nurses continue to perform dressing changes every other day, with wound VAC application. Patient denies being on any antibiotics at this time. He previously completed several weeks of linezolid. Labs during recent hospitalization were reviewed, and noted to be stable. Dec, Gastric bleed (ICD-10 - K92.2) PLAN OF TREATMENT Treatment Notes Assessment Notes Clinical Notes Hospital discharge follow-up Report Goldie ls within normal range. Patient is feeling and doing well at this time. Patient is status post hospitalization from 01/10/2021 to 01/17/2021 for upper GI bleed. Patient denies any further episodes of hematemesis. He denies any hematochezia. He denies any malaise or weakness. Reports right stump osteomyelitis is pretty much healed. Home health nurses continue to perform dressing changes every other day, with wound VAC application. Patient denies being on any antibiotics at this time. He previously completed several weeks of linezolid. Labs during recent hospitalization were reviewed, and noted to be stable. Next Appt Details 4 Weeks Reason:f/u Provider Name:Alayna Simpson, 2021-02-22 02:30:00 PM, [id number] [facility], , [place], [address], Follow Up:4 Weeksf/u Insurance Providers Payer Name Payer Address Payer Phone Insured Name Patient Relati onship to Insured Coverage Start Date Coverage End Date MEDICAID [employer] [address] [facility] [id number] SEBASTIEN GARCIA self MEDICARE COMPLETE [employer] [address] [address] [facility] [address] SEBASTIEN GARCIA self
--- OUTSIDE RECORDS SUMMARY | 2021-02-10 18:15 | CCD ---
Author Author [facility] Organization [facility] Address Unknown Phone Unavailable Care Team Providers Care Exhaust Worker Name Role Phone Alayna Simpson Unavailable PROBLEMS Type Condition ICD9-CM Code [id number] Code Onset Dates Condition S tatus W/U Status Risk SNOMED Code Notes Problem Chronic obstructive pulmonary disease, unspecified COPD ty pe J44.9 Active confirmed 84172006 Problem Essential hypertension I10 Active confirmed 94478399 Problem Temporal arteritis M31.6 Active confirmed 4 21202663 Problem 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 L97.519 Active confirmed Problem Type 1 diabetes mellitus with foot ulcer E10.621 Active confirmed 014599888127979 Problem Adrenal insufficiency E27.40 Active confirmed 009268052 Problem Anemia of chronic disease D63.8 Active confirmed 695065720 Problem History of left below knee amputation Z89.512 Ac tive confirmed 501018923 Problem Cataract of both eyes, unspecified cataract type H 26.9 Active confirmed 98632462 Problem Chronic gastritis without bleeding, unspecified gastri tis type K29.50 Active confirmed 93286671 Problem PVD (peripheral vascular disease) I73.9 Active confirmed 894645170 Problem 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 9 Active confirmed 1846332675465672 Problem Pancytopenia D61.818 Active confirmed 580475 005 Problem Autonomic instability G90.9 Active confirmed 61856475 Problem Osteomyelitis of other site, unspecified type M86. 9 Active confirmed 23469550 Problem Type 1 diabetes mellitus with complication E10.8 Active confirmed 18619921 Problem Bipolar 1 disorder F31.9 Active confirmed 3 73806933 Problem Amputation below knee S88.119A Active confirmed 761309191 Problem Acquired absence of left leg below knee Z89.512 Active confirmed 314500989603686 Problem Acquired absence of right leg below knee Z89.511 Active confirmed 605575454 Problem Below-knee amputation of right lower extremity S88 .111A Active confirmed 274889455 ALLERGIES No Known Allergies ENCOUNTERS from 1960 to 2021-01-28 Encounter Location Date Provider Diagnosis [address] [phone] [place] [address] 28 Dec, 2020 Alayna Simpson IMMUNIZATIONS Vaccine Route Administration Date Status Influenza [...] School Language: Question Answer Notes Languages spoken: Salvadorean Protestant: Question Answer Notes Protestant 08 [employer] Alcohol Screening: Question Answer Notes Did you [...] Orally O nce a day Jul, Active ARIPiprazole 5 MG 1 tablet Orally Once a day for 90 days 0 6 Jul, 2020 Active Lisinopril 5 MG 1 tablet Orally [...] Information RESULTS No Results REASON FOR VISIT REFILL MEDICAL (GENERAL) HISTORY Type Description Date Medical [...] History right leg amputation 03/04/2020 Hospitalization History [facility] 10/2016 Hospitalization History hypoglycemia 12/02/2016-12/12/19 17 Hospitalization History autonomic instability 04/02/201707/2017 Hospitalization History hypergycemia 08/04/2019- 0 Hospitalization History leg amputation 03/04/2020 Hospitalization History [facility] 05/04/2020- 1 Hospitalization History [facility] 08/15/2020 Hospitalization History amputation site infection 08/04- 021 Hospitalization History Low Blood Sugar 12/19/2020 Goals Section No Information Health Concerns No Information MEDICAL EQUIPMENT No Information MENTAL STATUS No Information FUNCTIONAL STATUS No Information ASSESSMENTS No Information PLAN OF TREATMENT Medication Medication Name Sig Start Date Stop Date Lisinopril 5 MG 1 tablet Orally Once a day for 30 day(s) Next Appt Details Provider Name:Cecilio Ernandez, 8 09:30:00 AM, [address] [facility], , [place], [address], Provider Name:Alayna Simpson, 2021-02-22 02:30:00 PM, [address] [facility], , [place], [address], Insurance Providers Payer Name Payer Address Payer Phone Insured Name Patient Relati onship to Insured Coverage Start Date Coverage End Date MEDICARE COMPLETE [facility] [address] [address] [facility] [id number] SEBASTIEN GARCIA self MEDICAID [employer] [address] [facility] [id number] SEBASTIEN GARCIA self
--- OUTSIDE RECORDS SUMMARY | 2021-02-10 18:16 | CCD | Continuity of Care Document ---
Author Author Hermann JEFFREY MD Organization Unknown Address [address] [facility], [address] [place] [address] Phone [phone] Care Team Providers Care Development Director Name Role Phone Christelle Cook M.D. AUTM [phone] AUTM Unavailable Job Raphael MD AUTM [phone] [facility] - Medical Records AUTM [phone] Kanu Velazquez M.D. AUTM AUTM Unavailable Alayna Simpson M.D. AUTM [phone] Problems Active Problems Provider Date Hemorrhage of rectum and anus VICTORIANO Santiago On set: 09/26/2016 Anemia Brisarhoda Cobb RPA-C Onset: 09/26 Epigastric pain VICTORIANO Santiago Onset: 09/26 Otalgia Shravan Velasquez MD Onset: 09/26/2016 Chronic infection of amputation stump Anais Jones MD Onset: 12/17/2020 Traumatic wound dehiscence Anais oJnes MD Onset: 12/17/2020 Peripheral vascular disorder due to diabetes mellitus Anais Jones MD Onset: 01/06/2021 Hypoglycemia Anais Jones MD Onset: 2020 Social History Type Date [...] as directed Lester Echevarria M.D. 08/23/2017 [employer] To Left BKA as directed Lester Echevarria M.D. 08/23/2017 Referral For Evaluation And Treat To [facility] Lester Echevarria M.D. 08/22/2017 Clopidogrel [...] Available Vital Signs Date Vital Result Comment 01/06/2021 11:53am BP Systolic 138 mmHg BP Diastolic 80 mmHg Body Temperature 97.9 F Height 69 inches 5'9" Weight 152.00 lb BMI (Body Mass Index) 22.4 kg/m2 Lena Body Weight 160 lb Weight 68.947 kg BSA (Body Surface Area) 1.84 m2 12/17/2020 2:50pm BP Systolic 116 mmHg BP Diastolic 71 mmHg Heart Rate 65 /min Height 69 inches 5'9" Weight 165.25 lb BMI (Body Mass Index) 24.4 kg/m2 Lena Body Weight 160 lb Weight 74.957 kg BSA (Body Surface Area) 1.91 m2 Results Description No Information Available Procedures Date Code Description Status 01/12/2021 13633 Debridement Skin, Subcutaneous T issue & Muscle Completed 12/08/2020 93237 Re-Amputation Leg Completed 11/11/2020 92340 Office/Outpatient Established Lo w MDM 20-29 Min Completed 11/01/2020 95088 Office/Outpatient Established Lo w MDM 20-29 Min Completed 08/12/2020 44502 Office/Outpatient Established Lo w MDM 20-29 Min Completed Medical Devices Description No Information Available Encounters Type Date Location Provider Dx Diagnosis Office Visit 01/06/2021 11:45a [facility] Karen Jones MD T81.30xA Disruption of wound, unspeci fied, initial encounter 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.1 Other hypoglycemia Office Visit 12/17/2020 1:00p [facility] Karen Jones MD T87.43 Infection of amputation stum p, right lower extremity T81.30xA Disruption of wound, unspeci fied, initial encounter Z89.511 Acquired absence of right le g below knee Office Visit 11/11/2020 8:30a [facility] Mnauel salinas MD Z89.511 Acquired absence of right leg below knee T87.89 Other complications of amput ation stump Office Visit 11/01/2020 2:30p [facility] Ranjeet frank MD T81.30xA Disruption of wound, unspecified, initia l encounter Office Visit 08/12/2020 11:00a [facility] Kathy angeles MD Z89.511 Acquired absence of right leg below knee Z47.81 Encounter for orthopedic aft ercare following surgical amp Assessments Date Code Description Provider 01/12/2021 T81.30xA Disruption of wound, unspecified , initial encounter Anais Jones MD 01/06/2021 T81.30xA Disruption of wound, unspecified , initial encounter Anais Jones MD 01/06/2021 E11.59 Type 2 diabetes mellitus with ot her circulatory complications Anais Jones MD 01/06/2021 E16.1 Other hypoglycemia Anais Jones MD 12/17/2020 T87.43 Infection of amputation stump, r ight lower extremity Anais Jones MD 12/17/2020 T81.30xA Disruption of wound, unspecified , initial encounter Anais Jones MD 12/17/2020 Z89.511 Acquired absence of right leg be low knee Anais Jones MD 12/08/2020 T87.43 Infection of amputation stump, r ight lower extremity Anais Jones MD 11/11/2020 Z89.511 Acquired absence of right [...] 10:00 am - Kanu Velazquez M.D. 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
--- OUTSIDE RECORDS SUMMARY | 2021-02-10 18:16 | CCD | Continuity of Care Document ---
Author Author Hermann KEVIN MD Organization Unknown Address [address] [facility] [address], [address] [place] [address] Phone [phone] Care Team Providers Care Armored Car Driver Name Role Phone Chirstelle Cook M.D. AUTM [phone] AUTM Unavailable Job Raphael MD AUTM [phone] [facility] - Medical Records AUTM Kanu Velazquez M.D. AUTM AUTM Unavailable Alayna Simpson M.D. AUTM [phone] Problems Active Problems Provider Date Hemorrhage of [...] as directed Lester Echevarria M.D. 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 08/23/2017 Referral For Evaluation And Treat To [facility] Lester Echevarria M.D. 08/22/2017 Clopidogrel [...] lb BMI (Body Mass Index) 22.4 kg/m2 Warren Body Weight 160 lb Weight 68.947 kg BSA (Body Surface Area) 1.84 m2 12/17/2020 2:50pm BP Systolic 116 mmHg BP Diastolic 71 mmHg Heart Rate 65 /min Height 69 inches 5'9" Weight 165.25 lb BMI (Body Mass Index) 24.4 kg/m2 Warren Body Weight 160 lb Weight 74.957 kg BSA (Body Surface Area) 1.91 m2 Results Description No Information Available Procedures Date Code Description Status 01/06/2021 54783 Office/Outpatient Established Lo w MDM 20-29 Min Completed 12/08/2020 55965 Re-Amputation Leg Completed 11/11/2020 37236 Office/Outpatient Established Lo w MDM 20-29 Min Completed 11/01/2020 75543 Office/Outpatient Established Lo w MDM 20-29 Min Completed 08/12/2020 42317 Office/Outpatient Established Lo w MDM 20-29 Min Completed 07/08/2020 71691 Office/Outpatient Established Lo w MDM 20-29 Min Completed Medical Devices Description No Information Available Encounters Type Date Location Provider Dx Diagnosis Office Visit 01/06/2021 11:45a [facility] Karen Kevin MD T81.30xA Disruption of wound, unspeci fied, initial encounter 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.1 Other hypoglycemia Office Visit 12/17/2020 1:00p [facility] Karen Kevin MD T87.43 Infection of amputation stum p, right lower extremity T81.30xA Disruption of wound, unspeci fied, initial encounter Z89.511 Acquired absence of right le g below knee Office Visit 11/11/2020 8:30a [facility] Manuel salinas MD Z89.511 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.519 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 unsp severity Office Visit 11/01/2020 2:30p [facility] Ranjeet frank MD T81.30xA Disruption of wound, unspecified, initia l encounter Office Visit 08/12/2020 11:00a [facility] Kathy angeles MD Z89.511 Acquired absence of right leg below knee Z47.81 Encounter for orthopedic aft ercare following surgical amp Office Visit 07/08/2020 11:45a [facility] Kathy angeles MD Z89.511 Acquired absence of right leg below knee Assessments Date Code Description Provider 01/06/2021 T81.30xA Disruption of wound, unspecified , initial encounter Anais Kevin MD 01/06/2021 E11.59 Type 2 diabetes mellitus with ot her circulatory complications Anais Kevin MD 01/06/2021 E16.1 Other hypoglycemia Anais Kevin MD 12/17/2020 T87.43 Infection of amputation stump, r ight lower extremity Anais Kevin MD 12/17/2020 T81.30xA Disruption of wound, unspecified , initial encounter Anais Kevin MD 12/17/2020 Z89.511 Acquired absence of right leg be low knee Anais Kevin MD 12/08/2020 T87.43 Infection of amputation stump, r ight lower extremity Anais Kevin MD 11/11/2020 Z89.511 Acquired absence of right leg be low knee Manuel Jeffrey MD 11/11/2020 L97.519 Non-pressure chronic ulcer of other part of right foot with unspecified severity Manuel Jeffrey MD 11/01/2020 T81.30xA Disruption of wound, unspecified , initial encounter Ranjeet Platt MD 08/12/2020 Z89.511 Acquired absence of right leg be low knee Kathy Boss MD 08/12/2020 Z47.81 Encounter for orthop edic aftercare following surgical amputation Kathy Boss MD 07/08/2020 Z89.511 Acquired absence of right leg be low knee Kathy Boss MD Plan of Treatment Future Appointment(s):* 01/12/2021 12:45 pm - Anais Kevin MD at [facility] 01/06/2021 - Anais Kevin MD* T81.30xA [...] Comments:* Has an insulin pump-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
--- OUTSIDE RECORDS SUMMARY | 2021-02-10 18:16 | CCD ---
Author Author [facility] Organization [facility] Address Unknown Phone Unavailable Care Team Providers Care Professional Advisor Name Role Phone Alayna Simpson Unavailable PROBLEMS Type Condition ICD9-CM Code [id number] Code Onset Dates Condition S tatus W/U Status Risk SNOMED Code Notes Problem Bipolar 1 disorder F31.9 Active confirmed 3 65035497 Problem Autonomic instability G90.9 Active confirmed 85852331 Problem Adrenal insufficiency E27.40 Active confirmed 859180912 Problem Anemia of chronic disease D63.8 Active confirmed 315829227 Problem History of left below knee amputation Z89.512 Ac tive confirmed 400558833 Problem Cataract of both eyes, unspecified cataract type H 26.9 Active confirmed 75577368 Problem Chronic gastritis without bleeding, unspecified gastri tis type K29.50 Active confirmed 64152694 Problem Chronic obstructive pulmonary disease, unspecified COPD ty pe J44.9 Active confirmed 83377469 Problem PVD (peripheral vascular disease) I73.9 Active confirmed 744400340 Problem Type 1 diabetes mellitus with foot ulcer E10.621 Active confirmed 735117372353807 Problem 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 L97.519 Active confirmed Problem Type 1 diabetes mellitus with other specified complication E10.69 Active confirmed 95582415 Problem Acquired absence of right leg below knee Z89.511 Active confirmed 214988500 Problem 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 9 Active confirmed 1255369512713915 Problem Amputation below knee S88.119A Active confirmed 272365917 Problem Acquired absence of left leg below knee Z89.512 Active confirmed 958472211720731 ALLERGIES No Known Allergies ENCOUNTERS from 1960 to 2020-12-14 Encounter Location Date Provider Diagnosis [place] [address] [facility] [phone] [place] [address] 14 Dec, 2020 Alayna Simpson IMMUNIZATIONS Vaccine Route [...] School Language: Question Answer Notes Languages spoken: Maori Episcopal: Question Answer Notes Episcopal 08 Mandaen Alcohol Screening: Question Answer Notes [...] Notes Start Da te End Date Status predniSONE 1 MG 3tablets with 5 mg tab for total of 9mg Orally O nce a day Jul, Active predniSONE 5 MG 1 tablet with 41 mg tablets for a total of 9 mg Orally Once a day July, Active Gabapentin 300 MG 1 cap Orally bid for 90 day(s) Active CeleXA 40 MG 1 tab Orally Once a day Apr, Active Colace 100 MG 1 capsule as needed Orally Once a day for 30 day (s) 14 Dec, 2020 Active Ferrous Sulfate 325 (65 Fe) MG 1 tablet Orally weekly for 90 day (s) once a week Active Atorvastatin Calcium 40MG 1 tablet Orally Once a day for 90 day(s) Active Pantoprazole Sodium 40 MG 1 tablet Orally bid for 30 Days Active NovoLOG 100 UNIT/ML as directed Subcutaneous Ins ulin pump, pump up to 100 units daily sliding scale July, Active Finasteride 5 MG 1 tablet Orally Once a day for 90 days Active Protonix 40 MG 1 tablet Orally bid changed to BID July, Not-Taking Latanoprost 0.005 % 1 drop into affected eye in the evening Ophthalmic left eye Once a day July, Active Aspirin Adult Low Dose 81 MG 1 tablet Orally Once a day Active Ketoconazole 2 % 1 application to affected ar ea of face Externally Once a day for 14 days Aug, Active ARIPiprazole 5 MG 1 tablet Orally Once a day for 90 days 0 Jul, Active Bisacodyl 10 MG 1 suppository as needed Rectal Once a day for 1 day(s) Dec, Active Clopidogrel Bisulfate 75 MG 1 tablet Orally Once a day for 90 day(s) Active PROCEDURES No Information RESULTS No Results REASON FOR VISIT constipation MEDICAL (GENERAL) HISTORY Type Description Date Medical [...] History right leg amputation 03/04/2020 Hospitalization History [facility] 10/2016 Hospitalization History hypoglycemia 12/02/2016-12/12/19 17 Hospitalization History autonomic instability 04/02/201707/2017 Hospitalization History hypergycemia 08/04/2019- 0 Hospitalization History leg amputation 03/04/2020 Hospitalization History [facility] 05/04/2020- 1 Hospitalization History [facility] 08/15/2020 Goals Section No Information Health Concerns No Information MEDICAL EQUIPMENT No Information MENTAL STATUS No Information FUNCTIONAL STATUS No Information ASSESSMENTS No Information PLAN OF TREATMENT Medication Medication Name Sig Start Date Stop Date Pantoprazole Sodium 40 MG 1 tablet Orally bid for 30 Days ARIPiprazole 5 MG 1 tablet Orally Once a day for 90 days Jul, Bisacodyl 10 MG 1 suppository as needed Rectal Once a da y for 1 day(s) Dec, Colace 100 MG 1 capsule as needed Orally Once a day for 30 day (s) Dec, Ketoconazole 2 % 1 application to affected ar ea of face Externally Once a day for 14 days Aug, Finasteride 5 MG 1 tablet Orally Once a day for 90 days Next Appt Details Provider Name:Alayna Simpson, 2020-12-16 01:00:00 PM, [address] [facility], , [place], [address], Provider Name:Inocente Ledesma, 09:00:00 AM, [address], , [place], [address], Insurance Providers Payer Name Payer Address Payer Phone Insured Name Patient Relati onship to Insured Coverage Start Date Coverage End Date MEDICAID [employer] [address] [facility] [address] [place]STI[place] GARCIA self MEDICARE COMPLETE [facility] [address] [address] [facility] [address] SEBASTIEN GARCIA self
--- OUTSIDE RECORDS SUMMARY | 2021-02-10 18:16 | CCD | Continuity of Care Document ---
Author Author Hermann KEVIN MD Organization Unknown Address [address], [address] [place] [address] Phone [phone] Care Team Providers Care Canine Deputy Name Role Phone Christelle Cook M.D. AUTM [phone] AUTM Unavailable Job Raphael MD AUTM [phone] [facility] - Medical Records AUTM Kanu Velazquez M.D. AUTM AUTM Unavailable Alayna Simpson M.D. AUTM [phone] Problems Active Problems Provider Date Hemorrhage of [...] as directed Lester Echevarria M.D. 08/23/2017 [employer] To Left BKA as directed Lester Echevarria M.D. 08/23/2017 Referral For Evaluation And Treat To [facility] Lester Echevarria M.D. 08/22/2017 Clopidogrel Bisulfate [...] lb BMI (Body Mass Index) 22.4 kg/m2 [place] Body Weight 160 lb Weight 68.947 kg BSA (Body Surface Area) 1.84 m2 12/17/2020 2:50pm BP Systolic 116 mmHg BP Diastolic 71 mmHg Heart Rate 65 /min Height 69 inches 5'9" Weight 165.25 lb BMI (Body Mass Index) 24.4 kg/m2 [place] Body Weight 160 lb Weight 74.957 kg BSA (Body Surface Area) 1.91 m2 Results Description No Information Available Procedures Date Code Description Status 01/06/2021 83656 Office/Outpatient Established Lo w MDM 20-29 Min Completed 12/08/2020 25686 Re-Amputation Leg Completed 11/11/2020 26738 Office/Outpatient Established Lo w MDM 20-29 Min Completed 11/01/2020 05692 Office/Outpatient Established Lo w MDM 20-29 Min Completed 08/12/2020 46547 Office/Outpatient Established Lo w MDM 20-29 Min Completed 07/08/2020 56159 Office/Outpatient Established Lo w MDM 20-29 Min Completed Medical Devices Description No Information Available Encounters Type Date Location Provider Dx Diagnosis Office Visit 01/06/2021 11:45a [facility] Karen Kevin MD T81.30xA Disruption of wound, unspeci fied, initial encounter 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.1 Other hypoglycemia Office Visit 12/17/2020 1:00p [facility] Karen Kevin MD T87.43 Infection of amputation stum p, right lower extremity T81.30xA Disruption of wound, unspeci fied, initial encounter Z89.511 Acquired absence of right le g below knee Office Visit 11/11/2020 8:30a [facility] Manuel salinas MD Z89.511 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.519 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 unsp severity Office Visit 11/01/2020 2:30p [facility] Ranjeet frank MD T81.30xA Disruption of wound, unspecified, initia l encounter Office Visit 08/12/2020 11:00a [facility] Kathy angeles MD Z89.511 Acquired absence of right leg below knee Z47.81 Encounter for orthopedic aft ercare following surgical amp Office Visit 07/08/2020 11:45a [facility] Kathy angeles MD Z89.511 Acquired absence [...] 12:45 pm - Anais Kevin MD at [facility] 01/06/2021 - Anais Kevin MD* T81.30xA [...] Comments:* Has an insulin pump-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
--- OUTSIDE RECORDS SUMMARY | 2021-02-10 18:16 | CCD ---
Author Author [facility] Organization [facility] Address Unknown Phone Unavailable Care Team Providers Care Industrial Seamstress Name Role Phone Alayna Simpson Unavailable PROBLEMS Type Condition ICD9-CM Code TUX11-TS Code Onset Dates Condition S tatus W/U Status Risk SNOMED Code Notes Problem Anemia of chronic disease D63.8 Active confirmed 349215056 Problem Bipolar 1 disorder F31.9 Active confirmed 3 83883771 Problem Cataract of both eyes, unspecified cataract type H 26.9 Active confirmed 81218019 Problem Adrenal insufficiency E27.40 Active confirmed 205326228 Problem PVD (peripheral vascular disease) I73.9 Active confirmed 593337360 Problem History of left below knee amputation Z89.512 Ac tive confirmed 768315462 Problem Benign prostatic hyperplasia with lower urinary tract symptoms N40.1 Active confirmed 435327785465741 Problem Temporal arteritis M31.6 Active confirmed 4 38326085 Problem Chronic gastritis without bleeding, unspecified gastri tis type K29.50 Active confirmed 34556932 Problem Chronic obstructive pulmonary disease, unspecified COPD ty pe J44.9 Active confirmed 74817757 Problem 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 L97.519 Active confirmed Problem Type 1 diabetes mellitus with other specified complication E10.69 Active confirmed 75854736 Problem 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 9 Active confirmed 6779305126199371 Problem Amputation below knee S88.119A Active confirmed 941288484 Problem Acquired absence of left leg below knee Z89.512 Active confirmed 238978853243667 Problem Acquired absence of right leg below knee Z89.511 Active confirmed 849909192 ALLERGIES No Known Allergies ENCOUNTERS from 1960 to 2020-12-31 Encounter Location Date Provider Diagnosis [facility] [address] [facility] [phone] [place] [address] Dec, Alayna Simpson IMMUNIZATIONS Vaccine Route Administration Date [...] School Language: Question Answer Notes Languages spoken: Hong Konger Catholic: Question Answer Notes Catholic 08 Orthodox Alcohol Screening: Question Answer Notes [...] Notes Start Da te End Date Status Brimonidine Tartrate 0.1 % 1 drop into affected eye Ophthalmic ever y 8 hrs Active NovoLOG 100 UNIT/ML as directed Subcutaneous Ins ulin pump, pump up to 100 units daily sliding scale July, Not-Taking Ferrous Sulfate 325 (65 Fe) MG 1 tablet Orally weekly for 90 day (s) once a week Active Pantoprazole Sodium 40 MG 1 tablet Orally bid for 30 Days Not-Taking Latanoprost 0.005 % 1 drop into affected eye in the evening Ophthalmic left eye Once a day July, Not-Taking Glucagon (rDNA) 1 MG as directed Injection Active Ketoconazole 2 % 1 application to affected ar ea of face Externally Once a day for 14 days Aug, Not-Taking Linezolid 600 MG 1 tablet Orally every 12 hrs for 10 day(s) Active Finasteride 5 MG 1 tablet Orally Once a day for 90 days Active predniSONE 1 MG 3tablets with 5 mg tab for total of 9mg Orally O nce a day Jul, Active ARIPiprazole 5 MG 1 tablet Orally Once a day for 90 days 0 Jul, Active Lisinopril 5 MG 1 tablet Orally Once a day for 30 day(s) Not-Taking Gabapentin 300 MG 1 cap Orally bid for 90 day(s) Active Colace 100 MG 1 capsule as needed Orally Once a day for 30 day (s) Dec, Not-Taking CeleXA 40 MG 1 tab Orally Once a day Apr, Not-Taking Clopidogrel Bisulfate 75 MG 1 tablet Orally Once a day for 90 day(s) Active Protonix 40 MG 1 tablet Orally bid changed to BID July, Not-Taking Atorvastatin Calcium 40MG 1 tablet Orally Once a day for 90 day(s) Active predniSONE 5 MG 1 tablet with 41 mg tablets for a total of 9 mg Orally Once a day July, Active Pantoprazole Sodium 40 MG 1 tablet Orally Once a day for 30 day(s) Active Bisacodyl 10 MG 1 suppository as needed Rectal Once a day for 1 day(s) Dec, Not-Taking Aspirin Adult Low Dose 81 MG 1 tablet Orally Once a day Active PROCEDURES No Information RESULTS No Results REASON FOR VISIT CRITICAL LAB VALUE MEDICAL (GENERAL) HISTORY Type Description Date Medical [...] History right leg amputation 03/04/2020 Hospitalization History [facility] 10/2016 Hospitalization History hypoglycemia 12/02/2016-12/12/19 17 Hospitalization History autonomic instability 04/02/201707/2017 Hospitalization History hypergycemia 08/04/2019- 0 Hospitalization History leg amputation 03/04/2020 Hospitalization History [facility] 05/04/2020- 1 Hospitalization History [facility] 08/15/2020 Hospitalization History amputation site infection 08/04- 021 Hospitalization History Low Blood Sugar 12/19/2020 Goals Section No Information Health Concerns No Information MEDICAL EQUIPMENT No Information MENTAL STATUS No Information FUNCTIONAL STATUS No Information ASSESSMENTS No Information PLAN OF TREATMENT Next Appt Details Provider Name:Inocente Ledesma, 09:00:00 AM, [address], , [place], [address], Provider Name:Alayna Simpson, 2021-01-21 11:00:00 AM, [address] [facility], , [place], [address], Insurance Providers Payer Name Payer Address Payer Phone Insured Name Patient Relati onship to Insured Coverage Start Date Coverage End Date MEDICAID [employer] [address] [facility] [address] [place] GARCIA self MEDICARE COMPLETE [employer] [address] [address] [facility] [address] SEBASTIEN GARCIA self
--- OUTSIDE RECORDS SUMMARY | 2021-02-10 18:16 | CCD ---
Author Author [facility] Organization [facility] Address Unknown Phone Unavailable Care Team Providers Care Civil Engineering Drafter Name Role Phone Alayna Simpson Unavailable PROBLEMS Type Condition ICD9-CM Code [id number] Code Onset Dates Condition S tatus W/U Status Risk SNOMED Code Notes Problem Anemia of chronic disease D63.8 Active confirmed 494968352 Problem Bipolar 1 disorder F31.9 Active confirmed 3 34161683 Problem Cataract of both eyes, unspecified cataract type H 26.9 Active confirmed 91600132 Problem Adrenal insufficiency E27.40 Active confirmed 597235260 Problem PVD (peripheral vascular disease) I73.9 Active confirmed 058846392 Problem History of left below knee amputation Z89.512 Ac tive confirmed 819952298 Problem Benign prostatic hyperplasia with lower urinary tract symptoms N40.1 Active confirmed 558252300457487 Problem Temporal arteritis M31.6 Active confirmed 4 99864021 Problem Chronic gastritis without bleeding, unspecified gastri tis type K29.50 Active confirmed 31060808 Problem Chronic obstructive pulmonary disease, unspecified COPD ty pe J44.9 Active confirmed 40322804 Problem 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 L97.519 Active confirmed Problem Type 1 diabetes mellitus with other specified complication E10.69 Active confirmed 54512719 Problem 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 9 Active confirmed 2580529908747680 Problem Amputation below knee S88.119A Active confirmed 645815312 Problem Acquired absence of left leg below knee Z89.512 Active confirmed 857524291423483 Problem Acquired absence of right leg below knee Z89.511 Active confirmed 027664939 ALLERGIES No Known Allergies ENCOUNTERS from 1960 to 2020-12-17 Encounter Location Date Provider Diagnosis [facility] [address] [facility] [phone] [place] [address] Dec, Alayna Simpson Pancytopenia D61.818 and Hos pital discharge follow-up Z09 IMMUNIZATIONS Vaccine Route Administration Date Status Influenza [...] School Language: Question Answer Notes Languages spoken: Welsh Gnosticism: Question Answer Notes Gnosticism 08 Lutheran Alcohol Screening: Question Answer Notes [...] FOR REFERRAL No Information VITAL SIGNS Weight 165.2 lbs Dec, Height 69 in Dec, BMI 24.39 kg/m2 Dec, Heart Rate 73 /min Dec, Respiratory Rate 18 /min Dec, Temperature 97.4 degrees Fahrenheit Dec, Oximetry 99 16 Dec, 2020 Blood pressure systolic 106 mm Hg 16 Dec, 2020 Blood pressure diastolic 49 mm Hg Dec, MEDICATIONS Medication SIG (Take, Route, Frequency, Duration) Notes Start Da te End Date Status Pantoprazole Sodium 40 MG 1 tablet Orally Once a day for 30 day(s) Active Protonix 40 MG 1 tablet Orally bid changed to BID July, Not-Taking Latanoprost 0.005 % 1 drop into affected eye in the evening Ophthalmic left eye Once a day July, Not-Taking Linezolid 600 MG 1 tablet Orally every 12 hrs for 10 day(s) Active amLODIPine Besylate 5 MG 1 tablet Orally Once a day for 30 day(s) Active predniSONE 5 MG 1 tablet with 41 mg tablets for a total of 9 mg Orally Once a day July, Active Clopidogrel Bisulfate 75 MG 1 tablet Orally Once a day for 90 day(s) Active predniSONE 1 MG 3tablets with 5 mg tab for total of 9mg Orally O nce a day Jul, Active Aspirin Adult Low Dose 81 MG 1 tablet Orally Once a day Active CeleXA 40 MG 1 tab Orally Once a day Apr, Not-Taking Ketoconazole 2 % 1 application to affected ar ea of face Externally Once a day for 14 days Aug, Not-Taking Gabapentin 300 MG 1 cap Orally bid for 90 day(s) Active ARIPiprazole 5 MG 1 tablet Orally Once a day for 90 days 0 6 Jul, 2020 Active Bisacodyl 10 MG 1 suppository as needed Rectal Once a day for 1 day(s) Dec, Not-Taking Lisinopril 5 MG 1 tablet Orally Once a day for 30 day(s) Active NovoLOG 100 UNIT/ML as directed Subcutaneous Ins ulin pump, pump up to 100 units daily sliding scale July, Not-Taking Pantoprazole Sodium 40 MG 1 tablet Orally bid for 30 Days Not-Taking Colace 100 MG 1 capsule as needed Orally Once a day for 30 day (s) Dec, Not-Taking Brimonidine Tartrate 0.1 % 1 drop into affected eye Ophthalmic ever y 8 hrs Active Glucagon (rDNA) 1 MG as directed Injection Active Atorvastatin Calcium 40MG 1 tablet Orally Once a day for 90 day(s) Active Ferrous Sulfate 325 (65 Fe) MG 1 tablet Orally weekly for 90 day (s) once a week Active Finasteride 5 MG 1 tablet Orally Once a day for 90 days Active PROCEDURES No Information RESULTS No Results REASON FOR VISIT [facility] d/c 12/12- right lower leg MEDICAL (GENERAL) HISTORY Type Description Date Medical [...] History right leg amputation 03/04/2020 Hospitalization History [facility] 10/2016 Hospitalization History hypoglycemia 12/02/2016-12/12/19 17 Hospitalization History autonomic instability 04/02/201707/2017 Hospitalization History hypergycemia 08/04/2019- 0 Hospitalization History leg amputation 03/04/2020 Hospitalization History [facility] 05/04/2020- 1 Hospitalization History [facility] 08/15/2020 Hospitalization History amputation site infection 08/04- 021 Goals Section No Information Health Concerns No Information MEDICAL EQUIPMENT No Information MENTAL STATUS No Information FUNCTIONAL STATUS No Information ASSESSMENTS Encounter Date Diagnosis Assessment Notes Treatment Notes Treatm ent Clinical Notes Dec, Pancytopenia (ICD-10 - D61.818) Weekly CBCs to monitor for pancytopenia while patient is on Linezolid (for the next 6 weeks). Unclear whether home health nurse already has lab order. Will provide order and have pt ask nurse if she needs it. Dec, Hospital discharge follow-up (ICD-10 - Z09) Patient has been set up with appointment for follow-up with wound care surgeon Dr. Ledesma, and vascular surgery. Patient currently is feeling well, dressing changes are being done every 2 days at home. Discharge medications were reviewed with patient at this visit, strongly advised continued antibiotic use as well as all other meds as prescribed. Patient and significant other who accompanied him at this visit deny any concerns. PLAN OF TREATMENT Treatment Notes Assessment Notes Clinical Notes Pancytopenia Weekly CBCs to monit or for pancytopenia while patient is on Linezolid (for the next 6 weeks). Unclear whether home health nurse already has lab order. Will provide order and have pt ask nurse if she needs it. Hospital discharge follow-up Patient has been set up with appointment for follow-up with wound care surgeon Dr. Ledesma, and vascular surgery. Patient currently is feeling well, dressing changes are being done every 2 days at home. Discharge medications were reviewed with patient at this visit, strongly advised continued antibiotic use as well as all other meds as prescribed. Patient and significant other who accompanied him at this visit deny any concerns. Treatment Notes Test Name Order Date CBC with Differential 2020-12-16 Next Appt Details 4 Weeks Reason:f/u stump infection Provider Name:Inocente Ledesma, 09:00:00 AM, [address], , [place], [address], Provider Name:Alayna Simpson, 2021-01-18 02:00:00 PM, [address] [facility], , [place], [address], Follow Up:4 Weeksf/u stump infection Insurance Providers Payer Name Payer Address Payer Phone Insured Name Patient Relati onship to Insured Coverage Start Date Coverage End Date MEDICAID [employer] [address] [facility] [address] SE[place]STIEN GARCIA self MEDICARE COMPLETE [employer] [address] [address] [facility] [address] SEBASTIEN GARCIA self
--- OUTSIDE RECORDS SUMMARY | 2021-02-10 18:16 | CCD ---
Author Author [facility] Organization [facility] Address Unknown Phone Unavailable Care Team Providers Care Loan Servicing Specialist Name Role Phone Alayna Simpson Unavailable PROBLEMS Type Condition ICD9-CM Code [id number] Code Onset Dates Condition S tatus W/U Status Risk SNOMED Code Notes Problem Anemia of chronic disease D63.8 Active confirmed 552946214 Problem Bipolar 1 disorder F31.9 Active confirmed 3 13294105 Problem Cataract of both eyes, unspecified cataract type H 26.9 Active confirmed 02580019 Problem Adrenal insufficiency E27.40 Active confirmed 179017587 Problem PVD (peripheral vascular disease) I73.9 Active confirmed 919272666 Problem History of left below knee amputation Z89.512 Ac tive confirmed 751005787 Problem Benign prostatic hyperplasia with lower urinary tract symptoms N40.1 Active confirmed 098403450440788 Problem Temporal arteritis M31.6 Active confirmed 4 75901990 Problem Chronic gastritis without bleeding, unspecified gastri tis type K29.50 Active confirmed 67067938 Problem Chronic obstructive pulmonary disease, unspecified COPD ty pe J44.9 Active confirmed 02520542 Problem 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 L97.519 Active confirmed Problem Type 1 diabetes mellitus with other specified complication E10.69 Active confirmed 10135965 Problem 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 9 Active confirmed 8499996580457173 Problem Amputation below knee S88.119A Active confirmed 673781012 Problem Acquired absence of left leg below knee Z89.512 Active confirmed 895833259815741 Problem Acquired absence of right leg below knee Z89.511 Active confirmed 793808633 ALLERGIES No Known Allergies ENCOUNTERS from 1960 to 2020-12-22 Encounter Location Date Provider Diagnosis [facility] [address] [facility] [phone] [place] [address] Dec, Alayna Simpson IMMUNIZATIONS Vaccine Route Administration [...] School Language: Question Answer Notes Languages spoken: [place] Temple: Question Answer Notes Temple 08 Yarsani Alcohol Screening: Question Answer Notes [...] RESULTS No Results REASON FOR VISIT TCM/ACO [facility] d/c 12/21 IBAN, Hyperkalemia MEDICAL (GENERAL) HISTORY Type Description Date Medical [...] History right leg amputation 03/04/2020 Hospitalization History [facility] 10/2016 Hospitalization History hypoglycemia 12/02/2016-12/12/19 17 Hospitalization History autonomic instability 04/02/201707/2017 Hospitalization History hypergycemia 08/04/2019- 0 Hospitalization History leg amputation 03/04/2020 Hospitalization History [facility] 05/04/2020- 1 Hospitalization History [facility] 08/15/2020 Hospitalization History amputation site infection 08/04- 021 Goals Section No Information Health Concerns No Information MEDICAL EQUIPMENT No Information MENTAL STATUS No Information FUNCTIONAL STATUS No Information ASSESSMENTS Encounter Date Diagnosis Assessment Notes Treatment Notes Treatm ent Clinical Notes Dec, Other Discussion with patient PLAN OF TREATMENT Next Appt Details Provider Name:Alayna Simpson, 2020-12-23 10:00:00 AM, [address] [facility], , [place], [address], Provider Name:Inocente Ledesma, 09:00:00 AM, [address], , [place], [address], Provider Name:Alayna Simpson 2021-01-18 02:00:00 PM, [address] [facility], , [place], [address], Insurance Providers Payer Name Payer Address Payer Phone Insured Name Patient Relati onship to Insured Coverage Start Date Coverage End Date MEDICARE COMPLETE [facility] [address] [address] [facility] [id number] SEBASTIEN GARCIA self MEDICAID [id number] [address] [facility] [address] SEBASTIEN GARCIA self
--- OUTSIDE RECORDS SUMMARY | 2021-02-10 18:16 | CCD | Continuity of Care Document ---
Author Author Hermann KEVIN MD Organization Unknown Address [address], [address] [place] [address] Phone [phone] Care Team Providers Care Bulldozer Operator Name Role Phone Christelle Cook M.D. AUTM [phone] AUTM Unavailable Job Raphael MD AUTM [phone] [facility] - Medical Records AUTM [phone] Kanu Velazquez M.D. AUTM AUTM Unavailable Alayna Simpson M.D. AUTM [phone] Problems Active Problems Provider Date Hemorrhage of [...] as directed Lester Echevarria M.D. 08/23/2017 Stump Karate Instructor To Left BKA as directed Lester Echevarria M.D. 08/23/2017 Referral For Evaluation And Treat To [facility] Lester Echevarria M.D. 08/22/2017 Clopidogrel Bisulfate [...] lb BMI (Body Mass Index) 22.4 kg/m2 [place] Body Weight 160 lb Weight 68.947 kg BSA (Body Surface Area) 1.84 m2 12/17/2020 2:50pm BP Systolic 116 mmHg BP Diastolic 71 mmHg Heart Rate 65 /min Height 69 inches 5'9" Weight 165.25 lb BMI (Body Mass Index) 24.4 kg/m2 [place] Body Weight 160 lb Weight 74.957 kg BSA (Body Surface Area) 1.91 m2 Results Description No Information Available Procedures Date Code Description Status 01/06/2021 09921 Office/Outpatient Established Lo w MDM 20-29 Min Completed 12/08/2020 05174 Re-Amputation Leg Completed 11/11/2020 51538 Office/Outpatient Established Lo w MDM 20-29 Min Completed 11/01/2020 87993 Office/Outpatient Established Lo w MDM 20-29 Min Completed 08/12/2020 32289 Office/Outpatient Established Lo w MDM 20-29 Min Completed 07/08/2020 26132 Office/Outpatient Established Lo w MDM 20-29 Min Completed Medical Devices Description No Information Available Encounters Type Date Location Provider Dx Diagnosis Office Visit 01/06/2021 11:45a Located Within [facility] Karen Kevin MD T81.30xA Disruption of wound, unspeci fied, initial encounter 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.1 Other hypoglycemia Office Visit 12/17/2020 1:00p Located [facility] Karen Kevin MD T87.43 Infection of amputation stum p, right lower extremity T81.30xA Disruption of wound, unspeci fied, initial encounter Z89.511 Acquired absence of right le g below knee Office Visit 11/11/2020 8:30a Located [facility] Manuel salinas MD Z89.511 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.519 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 unsp severity Office Visit 11/01/2020 2:30p [facility] Ranjeet frank MD T81.30xA Disruption of wound, unspecified, initia l encounter Office Visit 08/12/2020 11:00a [facility] Kathy angeles MD Z89.511 Acquired absence of right leg below knee Z47.81 Encounter for orthopedic aft ercare following surgical amp Office Visit 07/08/2020 11:45a Located [facility] Kathy angeles MD Z89.511 Acquired absence [...] 12:45 pm - Anais Kevin MD at Located [facility] 01/06/2021 - Anais Kevin MD* T81.30xA [...] Comments:* Has an insulin pump-follows up with component inspector * E16.1 Other hypoglycemia* Comments:* See #2 Functional Status Description No Information Available Mental Status Description No Information Available Referrals Description No Information Available
--- OUTSIDE RECORDS SUMMARY | 2021-02-10 18:16 | CCD | Continuity of Care Document ---
Author Author Hermann KEVIN MD Organization Unknown Address [address], [address] [place] [address] Phone [phone] Care Team Providers Care Sheetmetal Trades Worker Name Role Phone Christelle Cook M.D. AUTM [phone] AUTM Unavailable Job Raphael MD AUTM [phone] [facility] - Medical Records AUTM Kanu Velazquez M.D. AUTM AUTM Unavailable Alayna Simpson M.D. AUTM [phone] Problems Active Problems Provider Date Hemorrhage of rectum and anus VICTORIANO Santiago On set: 09/26/2016 Anemia Brisarhoda Cobb RPA-C Onset: 09/26 Epigastric pain Brisa Cobb RPA-Sibohan Onset: 09/26 Otalgia Shravan Velasquez MD Onset: [...] as directed Lester Echevarria M.D. 08/23/2017 Stump Oil Well Driller To Left BKA as directed Lester Echevarria M.D. 08/23/2017 Referral For Evaluation And Treat To [facility] Lester Echevarria M.D. 08/22/2017 Clopidogrel [...] lb BMI (Body Mass Index) 22.4 kg/m2 [place] Body Weight 160 lb Weight 68.947 kg BSA (Body Surface Area) 1.84 m2 12/17/2020 2:50pm BP Systolic 116 mmHg BP Diastolic 71 mmHg Heart Rate 65 /min Height 69 inches 5'9" Weight 165.25 lb BMI (Body Mass Index) 24.4 kg/m2 [place] Body Weight 160 lb Weight 74.957 kg BSA (Body Surface Area) 1.91 m2 Results Description No Information Available Procedures Date Code Description Status 01/12/2021 88896 Debridement Skin, Subcutaneous T issue & Muscle Completed 12/08/2020 11545 Re-Amputation Leg Completed 11/11/2020 55733 Office/Outpatient Established Lo w MDM 20-29 Min Completed 11/01/2020 05717 Office/Outpatient Established Lo w MDM 20-29 Min Completed 08/12/2020 10684 Office/Outpatient Established Lo w MDM 20-29 Min Completed Medical Devices Description No Information Available Encounters Type Date Location Provider Dx Diagnosis Office Visit 01/06/2021 11:45a [facility] Karen Kevin MD T81.30xA Disruption of wound, unspeci fied, initial encounter 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.1 Other hypoglycemia Office Visit 12/17/2020 1:00p [facility] Karen Kevin MD T87.43 Infection of amputation stum p, right lower extremity T81.30xA Disruption of wound, unspeci fied, initial encounter Z89.511 Acquired absence of right le g below knee Office Visit 11/11/2020 8:30a [facility] Manuel salinas MD Z89.511 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.519 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 unsp severity Office Visit 11/01/2020 2:30p [facility] Ranjeet frank MD T81.30xA Disruption of wound, unspecified, initia l encounter Office Visit 08/12/2020 11:00a [facility] Kathy angeles MD Z89.511 Acquired absence of [...] Boss MD Plan of Treatment Future Appointment(s):* 02/03/2021 8:45 am - Anais Kevin MD at [facility] 01/06/2021 - Anais Kevin MD* T81.30xA Disruption [...] Comments:* Has an insulin pump-follows up with photoradio operator * E16.1 Other hypoglycemia* Comments:* See #2 Functional Status Description No Information Available Mental Status Description No Information Available Referrals Description No Information Available
--- OUTSIDE RECORDS SUMMARY | 2021-02-10 18:16 | CCD ---
Author Author [facility] Organization [facility] Address Unknown Phone Unavailable Care Team Providers Care Research Recruiter Name Role Phone Alayna Simpson Unavailable PROBLEMS Type Condition ICD9-CM Code BEL14-NE Code Onset Dates Condition S tatus W/U Status Risk SNOMED Code Notes Problem Anemia of chronic disease D63.8 Active confirmed 692017548 Problem Bipolar 1 disorder F31.9 Active confirmed 3 49571032 Problem Cataract of both eyes, unspecified cataract type H 26.9 Active confirmed 19677764 Problem Adrenal insufficiency E27.40 Active confirmed 673528944 Problem PVD (peripheral vascular disease) I73.9 Active confirmed 165556301 Problem History of left below knee amputation Z89.512 Ac tive confirmed 701234331 Problem Benign prostatic hyperplasia with lower urinary tract symptoms N40.1 Active confirmed 193883507959059 Problem Temporal arteritis M31.6 Active confirmed 4 62493743 Problem Chronic gastritis without bleeding, unspecified gastri tis type K29.50 Active confirmed 91861655 Problem Chronic obstructive pulmonary disease, unspecified COPD ty pe J44.9 Active confirmed 98212632 Problem 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 L97.519 Active confirmed Problem Type 1 diabetes mellitus with other specified complication E10.69 Active confirmed 63690494 Problem 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 9 Active confirmed 4384172360092613 Problem Amputation below knee S88.119A Active confirmed 188517321 Problem Acquired absence of left leg below knee Z89.512 Active confirmed 186017205995444 Problem Acquired absence of right leg below knee Z89.511 Active confirmed 753430709 ALLERGIES No Known Allergies ENCOUNTERS from 1960 to 2020-12-28 Encounter [facility] Date [facility] [address] [facility] [phone] [place] [address] 23 Dec, 2020 Alayna Simpson Hyperkalemia E87.5 ; Cardiac murmur R01.1 ; Type 1 diabetes mellitus with complication E10.8 and Hospital discharge follow-up Z09 IMMUNIZATIONS Vaccine Route Administration [...] Language: Question Answer Notes Languages spoken: Tunisian Jain: Question Answer Notes Jain 08 Gnosticist Alcohol Screening: Question Answer Notes Did you [...] smoked? > 10 years REASON FOR REFERRAL from 1960 to 2020-12-28 Reason 60 y old M with type 1 DM, H TN and cardiac murmur for further evaluation and management. Diagnosis 1 Cardiac murmur (R01.1) Diagnosis 2 Type 1 diabetes mellitus wit h complication (E10.8) Referral Organization [facility] Harini Referring Provider First Name Alayna Referring Provider Last Name Calvin Referring Provider Specialty Family Medicine Referred Provider Leopoldo Sim Referred Provider Specialty Cardiology Referral Priority Routine General Notes Saida Lowery 12/23/2020 5:1 7:35 PM > Sent Reason 60 y old wheelchair-bound juan j millan recently discharged from hospital for in- home occupational and physical therapy. Diagnosis 1 Hospital discharge follow-up (Z09) Referral Organization [facility] Harini Referring Provider First Name Alayna Referring Provider Last Name Calvin Referring Provider Specialty Family Medicine Referred Provider [facility] Referral Priority Routine General Notes Alayna Simpson 12/23/2020 1: 48:07 PM > patient requesting home health referral for occupational and physical therapySaida Lowery 12/23/2020 5:10:42 PM > Sent VITAL SIGNS Weight 162.6 lbs Dec, Height 69 in Dec, BMI 24.01 kg/m2 Dec, Heart Rate 70 /min Dec, Respiratory Rate 18 /min Dec, Temperature 98.1 degrees Fahrenheit Dec, Oximetry 100 Dec, Blood pressure systolic 112 mm Hg Dec, Blood pressure diastolic 55 mm Hg Dec, MEDICATIONS Medication SIG (Take, [...] RESULTS No Results REASON FOR VISIT TCM/ACO [facility] d/c 12/21 IBAN, Hyperkalemia MEDICAL (GENERAL) [...] History right leg amputation 03/04/2020 Hospitalization History [facility] 10/2016 Hospitalization History hypoglycemia 12/02/2016-12/12/19 17 Hospitalization History autonomic instability 04/02/201707/2017 Hospitalization History hypergycemia 08/04/2019- 0 Hospitalization History leg amputation 03/04/2020 Hospitalization History [facility] 05/04/2020-2/5/202 1 Hospitalization History [facility] 08/15/2020 Hospitalization History amputation site infection 08/04- 021 Hospitalization History Low Blood Sugar 12/19/2020 Goals Section No Information Health Concerns No Information MEDICAL EQUIPMENT No Information MENTAL STATUS No Information FUNCTIONAL STATUS No Information ASSESSMENTS Encounter Date Diagnosis Assessment Notes Treatment Notes Treatm ent Clinical Notes Dec, Hyperkalemia (ICD-10 - E87.5) Patient's lisinopril was discontinued, and potassium upon discharge was within normal limits. Last BMP checked on 12/21/2020. Will recheck BMP on 12/28/2020. Dec, Cardiac murmur (ICD-10 - R01.1) Dec, Type 1 diabetes mellitus with complication (ICD- 10 - E10.8) Follows with flat bed operator. Uses insulin pump. Dec, Hospital discharge follow-up (ICD-10 - Z09) Dec, Other CBC ordered at last visit to monitor for pancytopenia while on linezolid. Again, patient was reminded not to take citalopram while on linezolid. Both lisinopril and amlodipine were discontinued upon discharge from hospital due to low blood pressures. BP at this visit within normal limits. PLAN OF TREATMENT Treatment Notes Assessment Notes Clinical Notes Hyperkalemia Patient's lisinopril was discontinued, and potassium upon discharge was within normal limits. Last BMP checked on 12/21/2020. Will recheck BMP on 12/28/2020. Type 1 diabetes mellitus with complication Follows with flat bed operator. Uses insulin pump. Future Test Test Name Order Date Basic Metabolic Profile (BMP) [id number] Referrals Referral Date Details 60 y old M with type 1 DM, H TN and cardiac murmur for further evaluation and management., [employer] [place] 60 y old wheelchair-bound juan j millan recently discharged from hospital for in-home occupational and physical therapy., [facility] Next Appt Details 4 Weeks Reason:f/u Provider Name:Inocente Ledesma, 09:00:00 AM, [address], , [place], [address], Provider Name:Alayna Simpson, 2021-01-18 02:00:00 PM, [address], , [place], [address], Provider Name:Alayna Simpson, 2021-01-21 11:00:00 AM, [address], , [place], [address], Follow Up:4 Weeksf/u Insurance Providers Payer Name Payer Address Payer Phone Insured Name Patient Relati onship to Insured Coverage Start Date Coverage End Date MEDICARE COMPLETE [facility] [address] [address] [facility] [id number] SEBASTIEN GARCIA self MEDICAID [facility] [address] [facility] [address] SEBASTIEN GARCIA self
--- OUTSIDE RECORDS SUMMARY | 2021-02-10 18:16 | CCD ---
Author Author [facility] Organization [facility] Address Unknown Phone Unavailable Care Team Providers Care Nurse Clinician Name Role Phone Alayna Simpson Unavailable PROBLEMS Type Condition ICD9-CM Code CPF21-DI Code Onset Dates Condition S tatus W/U Status Risk SNOMED Code Notes Problem Chronic obstructive pulmonary disease, unspecified COPD ty pe J44.9 Active confirmed 36005570 Problem Essential hypertension I10 Active confirmed 66814359 Problem Temporal arteritis M31.6 Active confirmed 4 73243384 Problem 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 L97.519 Active confirmed Problem Type 1 diabetes mellitus with foot ulcer E10.621 Active confirmed 759684310192193 Problem Adrenal insufficiency E27.40 Active confirmed 511361345 Problem Anemia of chronic disease D63.8 Active confirmed 354918251 Problem History of left below knee amputation Z89.512 Ac tive confirmed 618865049 Problem Cataract of both eyes, unspecified cataract type H 26.9 Active confirmed 05458710 Problem Chronic gastritis without bleeding, unspecified gastri tis type K29.50 Active confirmed 27001761 Problem PVD (peripheral vascular disease) I73.9 Active confirmed 571147907 Problem 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 9 Active confirmed 4988955682994643 Problem Pancytopenia D61.818 Active confirmed 106383 005 Problem Autonomic instability G90.9 Active confirmed 18467827 Problem Osteomyelitis of other site, unspecified type M86. 9 Active confirmed 83646206 Problem Type 1 diabetes mellitus with complication E10.8 Active confirmed 91597567 Problem Bipolar 1 disorder F31.9 Active confirmed 3 99217106 Problem Amputation below knee S88.119A Active confirmed 445123797 Problem Acquired absence of left leg below knee Z89.512 Active confirmed 507074125481939 Problem Acquired absence of right leg below knee Z89.511 Active confirmed 154381964 Problem Below-knee amputation of right lower extremity S88 .111A Active confirmed 347618834 ALLERGIES No Known Allergies ENCOUNTERS from 1960 to 2021-01-07 Encounter Location Date Provider Diagnosis [address] [phone] [place] [address] 08 Dec, 2020 Alayna Simpson Bipolar 1 disorder F31.9 IMMUNIZATIONS Vaccine Route Administration Date Status Influenza [...] School Language: Question Answer Notes Languages spoken: Georgian Hindu: Question Answer Notes Hindu 08 Rastafarian Alcohol Screening: Question Answer Notes Did you [...] 100 units daily sliding scale July, Not-Taking Lisinopril 5 MG 1 tablet Orally Once a day for 30 day(s) Active Bisacodyl 10 MG 1 suppository as needed Rectal Once a day for 1 day(s) Dec, Not-Taking Latanoprost 0.005 % 1 drop into affected eye in the evening Ophthalmic left eye Once a day July, Not-Taking Linezolid 600 MG 1 tablet Orally every 12 hrs for 10 day(s) Active Ketoconazole 2 % 1 application to affected ar ea of face Externally Once a day for 14 days Aug, Not-Taking Pantoprazole Sodium 40 MG 1 tablet Orally Once a day for 30 day(s) Active predniSONE 1 MG 3tablets with 5 mg tab for total of 9mg Orally O nce a day Jul, Active Ferrous Sulfate 325 (65 Fe) MG 1 tablet Orally weekly for 90 day (s) once a week Active Pantoprazole Sodium 40 MG 1 tablet Orally bid for 30 Days Not-Taking Clopidogrel Bisulfate 75 MG 1 tablet Orally Once a day for 90 day(s) Active Finasteride 5 MG 1 tablet Orally Once a day for 90 days Active Colace 100 MG 1 capsule as needed Orally Once a day for 30 day (s) Dec, Not-Taking CeleXA 40 MG 1 tab Orally Once a day Apr, Not-Taking Gabapentin 300 MG 1 cap Orally bid for 90 day(s) Active Protonix 40 MG 1 tablet Orally bid changed to BID July, Not-Taking Atorvastatin Calcium 40MG 1 tablet Orally Once a day for 90 day(s) Active predniSONE 5 MG 1 tablet with 41 mg tablets for a total of 9 mg Orally Once a day July, Active ARIPiprazole 5 MG 1 tablet Orally Once a day for 90 days 0 6 Jul, 2020 Active Glucagon (rDNA) 1 MG as directed Injection Active Aspirin Adult Low Dose 81 MG 1 tablet Orally Once a day Active PROCEDURES No Information RESULTS No Results REASON FOR VISIT REFILLS MEDICAL (GENERAL) HISTORY Type Description Date Medical [...] right leg amputation 03/04/2020 Hospitalization History [facility] 10/2016 Hospitalization History hypoglycemia 12/02/2016-12/12/19 17 Hospitalization History autonomic instability 04/02/201707/2017 Hospitalization History hypergycemia 08/04/2019- 0 Hospitalization History leg amputation 03/04/2020 Hospitalization History [facility] 05/04/2020- 1 Hospitalization History [facility] 08/15/2020 Hospitalization History amputation site infection 08/04- 021 Hospitalization History Low Blood Sugar 12/19/2020 Goals Section No Information Health Concerns No Information MEDICAL EQUIPMENT No Information MENTAL STATUS No Information FUNCTIONAL STATUS No Information ASSESSMENTS Encounter Date Diagnosis Assessment Notes Treatment Notes Treatm ent Clinical Notes Dec, Bipolar 1 disorder (ICD-10 - F31.9) PLAN OF TREATMENT Medication Medication Name Sig Start Date Stop Date Ferrous Sulfate 325 (65 Fe) MG 1 tablet Orally weekly for 90 day (s) ARIPiprazole 5 MG 1 tablet Orally Once a day for 90 days Jul, Lisinopril 5 MG 1 tablet Orally Once a day for 30 day(s) Next Appt Details Provider Name:Cecilio Ernandez, 2020-12-31 2 11:00:00 AM, [address], , [place], [address], Provider Name:Inocente Ledesma, 09:00:00 AM, [address], , [place], [address], Provider Name:Alayna Simpson, 2021-01-21 11:00:00 AM, [address] [facility], , [place], [address], Insurance Providers Payer Name Payer Address Payer Phone Insured Name Patient Relati onship to Insured Coverage Start Date Coverage End Date MEDICARE COMPLETE [employer] [address] [address] [facility] [id number] SEBASTIEN GARCIA self MEDICAID [employer] [address] [facility] [id number] SEBASTIEN GARICA self
--- OUTSIDE RECORDS SUMMARY | 2021-02-10 18:16 | CCD | Continuity of Care Document ---
Author Author Hermann KEVIN MD Organization Unknown Address [address], [address] [place] [address] Phone [phone] Care Team Providers Care Refund Specialist Name Role Phone Christelle Cook M.D. AUTM [phone] AUTM Unavailable Job Raphael MD AUTM [phone] [facility] - Medical Records AUTM Kanu Velazquez M.D. AUTM AUTM Unavailable Alayna Simpson M.D. AUTM [phone] Problems Active Problems Provider Date Hemorrhage of rectum and anus VICTORIANO Santiago On set: 09/26/2016 Anemia VICTORIANO Santiago Onset: 09/26 Epigastric pain VICTORIANO Santiago Onset: 09/26 Otalgia Shravan Velasquez MD Onset: 09/26/2016 Chronic infection of amputation stump Anais Kevin MD Onset: 12/17/2020 Traumatic wound dehiscence Anais Kevin MD Onset: 12/17/2020 Social History Type Date Description Comments Sex Unknown ETOH Use Denies alcohol use Tobacco Use Start: Unknown Non Smoker Recreational Drug Use Denies Drug Use Smoking Status Reviewed: 05/28/20 Non Smoker Allergies, Adverse Reactions, Alerts Description [...] as directed Lester Echevarria M.D. 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 08/23/2017 Referral For Evaluation And Treat To [facility] Lester Echevarria M.D. 08/22/2017 Clopidogrel Bisulfate 75mg [...] Available Vital Signs Date Vital Result Comment 12/17/2020 2:50pm BP Systolic 116 mmHg BP Diastolic 71 mmHg Heart Rate 65 /min Height 69 inches 5'9" Weight 165.25 lb BMI (Body Mass Index) 24.4 kg/m2 [place] Body Weight 160 lb Weight 74.957 kg BSA (Body Surface Area) 1.91 m2 11/11/2020 8:18am BP Systolic 153 mmHg BP Diastolic 76 mmHg Heart Rate 67 /min Height 69 inches 5'9" Weight 164.00 lb BMI (Body Mass Index) 24.2 kg/m2 [place] Body Weight 160 lb Weight 74.390 kg BSA (Body Surface Area) 1.90 m2 Results Description No Information Available Procedures Date Code Description Status 12/08/2020 06817 Re-Amputation Leg Completed 11/11/2020 43590 Office/Outpatient Established Lo w MDM 20-29 Min Completed 11/01/2020 98326 Office/Outpatient Established Lo w MDM 20-29 Min Completed 08/12/2020 33176 Office/Outpatient Established Lo w MDM 20-29 Min Completed 07/08/2020 63565 Office/Outpatient Established Lo w MDM 20-29 Min Completed Medical Devices Description No Information Available Encounters Type Date Location Provider Dx Diagnosis Office Visit 12/17/2020 1:00p [facility] Rat na Desi Kevin MD T87.43 Infection of amputation stum p, right lower extremity T81.30xA Disruption of wound, unspeci fied, initial encounter Z89.511 Acquired absence of right le g below knee Office Visit 11/11/2020 8:30a [facility] Manuel salinas MD Z89.511 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.519 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 unsp severity Office Visit 11/01/2020 2:30p [facility] Ranjeet frank MD T81.30xA Disruption of wound, unspecified, initia l encounter Office Visit 08/12/2020 11:00a [facility] Kathy angeles MD Z89.511 Acquired absence of right leg below knee Z47.81 Encounter for orthopedic aft ercare following surgical amp Office Visit 07/08/2020 11:45a [facility] Kathy angeles MD Z89.511 Acquired absence of right leg below knee Assessments Date Code Description Provider 12/17/2020 T87.43 Infection of amputation stump, r [...] Boss MD Plan of Treatment Future Appointment(s):* 01/06/2021 11:45 am - Anais Kevin MD at [facility] 12/17/2020 - Anais Kevin MD* T87.43 Infection of amputation stump, right lower extremity* Comments:* S/p revision of right below-knee amputation, for osteomyelitis-on 12/08/2020. He is doing well. He is receiving wound care as per wound care service-by home health nurses.Plan:Continue dressing changes per wound careContinue antibiotics for osteomyelitis, as per ID recommendationFollow-up in 2 to 3 weeks, for suture removalMy impression and plan discussed with the patient. He understands and agrees. * T81.30xA Disruption of wound, unspecified, initial encounter* Comments:* Wound on the right below-knee amputation stump is clean. Bone is not exposed. Continue wound care * Z89.511 Acquired absence of right leg below knee Functional Status Description No Information Available Mental Status Description No Information Available Referrals Description No Information Available
--- OUTSIDE RECORDS SUMMARY | 2021-02-10 18:16 | CCD | Continuity of Care Document ---
Author Author Hermann KEVIN MD Organization Unknown Address [address], [address] [place] [address] Phone [phone] Care Team Providers Care Flask Maker Name Role Phone Christelle Cook M.D. AUTM [phone] AUTM Unavailable Job Raphael MD AUTM [phone] [facility] - Medical Records AUTM [phone] Kanu Velazquez M.D. AUTM [phone] AUTM Unavailable Alayna Simpson M.D. AUTM [phone] Problems Active Problems Provider Date Hemorrhage of [...] as directed Lester Echevarria M.D. 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 08/23/2017 Referral For Evaluation And Treat To [facility] Lester Echevarria M.D. 08/22/2017 Clopidogrel Bisulfate 75mg [...] lb BMI (Body Mass Index) 24.4 kg/m2 [place] Body Weight 160 lb Weight 74.957 kg BSA (Body Surface Area) 1.91 m2 11/11/2020 8:18am BP Systolic 153 mmHg BP Diastolic 76 mmHg Heart Rate 67 /min Height 69 inches 5'9" Weight 164.00 lb BMI (Body Mass Index) 24.2 kg/m2 [place] Body Weight 160 lb Weight 74.390 kg BSA (Body Surface Area) 1.90 m2 Results Description No Information Available Procedures Date Code Description Status 12/08/2020 77751 Re-Amputation Leg Completed 11/11/2020 28053 Office/Outpatient Established Lo w MDM 20-29 Min Completed 11/01/2020 07306 Office/Outpatient Established Lo w MDM 20-29 Min Completed 08/12/2020 02497 Office/Outpatient Established Lo w MDM 20-29 Min Completed 07/08/2020 84092 Office/Outpatient Established Lo w MDM 20-29 Min Completed Medical Devices Description No Information Available Encounters Type Date Location Provider Dx Diagnosis Office Visit 11/11/2020 8:30a [facility] Manuel salinas MD Z89.511 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.519 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 unsp severity Office Visit 11/01/2020 2:30p [facility] Ranjeet frank MD T81.30xA Disruption of wound, unspecified, initia l encounter Office Visit 08/12/2020 11:00a [facility] Kathy angeles MD Z89.511 Acquired absence of right leg below knee Z47.81 Encounter for orthopedic aft ercare following surgical amp Office Visit 07/08/2020 11:45a [facility] Kathy angeles MD Z89.511 Acquired absence of right leg below knee Assessments Date Code Description Provider 12/08/2020 T87.43 Infection of amputation stump, r [...] knee Kathy Boss MD Plan of Treatment No Information Available Functional Status Description No Information Available Mental Status Description No Information Available Referrals Description No Information Available
--- OUTSIDE RECORDS SUMMARY | 2021-02-10 18:16 | CCD | Continuity of Care Document ---
Author Author Hermann KEVIN MD Organization Unknown Address [address], [address] [place] [address] Phone [phone] Care Team Providers Care Biogeographer Name Role Phone Christelle Cook M.D. AUTM [phone] AUTM Unavailable Job Raphael MD AUTM [phone] [facility] - Medical Records AUTM Kanu Velazquez M.D. AUTM AUTM Unavailable Alayna Simpson M.D. AUTM [phone] Problems Active Problems Provider Date Hemorrhage of [...] as directed Lester Echevarria M.D. 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 08/23/2017 Referral For Evaluation And Treat To [facility] Lester Echevarria M.D. 08/22/2017 Clopidogrel Bisulfate 75mg [...] lb BMI (Body Mass Index) 22.4 kg/m2 [place] Body Weight 160 lb Weight 68.947 kg BSA (Body Surface Area) 1.84 m2 12/17/2020 2:50pm BP Systolic 116 mmHg BP Diastolic 71 mmHg Heart Rate 65 /min Height 69 inches 5'9" Weight 165.25 lb BMI (Body Mass Index) 24.4 kg/m2 [place] Body Weight 160 lb Weight 74.957 kg BSA (Body Surface Area) 1.91 m2 Results Description No Information Available Procedures Date Code Description Status 12/08/2020 40452 Re-Amputation Leg Completed 11/11/2020 29698 Office/Outpatient Established Lo w MDM 20-29 Min Completed 11/01/2020 12189 Office/Outpatient Established Lo w MDM 20-29 Min Completed 08/12/2020 73580 Office/Outpatient Established Lo w MDM 20-29 Min Completed Medical Devices Description No Information Available Encounters Type Date Location Provider Dx Diagnosis Office Visit 01/06/2021 11:45a [facility] Karen Kevin MD T81.30xA Disruption of wound, unspeci fied, initial encounter 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.1 Other hypoglycemia Office Visit 12/17/2020 1:00p [facility] Karen Kevin MD T87.43 Infection of amputation stum p, right lower extremity T81.30xA Disruption of wound, unspeci fied, initial encounter Z89.511 Acquired absence of right le g below knee Office Visit 11/11/2020 8:30a [facility] Manuel salinas MD Z89.511 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.519 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 unsp severity Office Visit 11/01/2020 2:30p [facility] Ranjeet frank MD T81.30xA Disruption of wound, unspecified, initia l encounter Office Visit 08/12/2020 11:00a [facility] Kathy angeles MD Z89.511 Acquired absence of right leg below knee Z47.81 Encounter for orthopedic aft ercare following surgical amp Assessments Date Code Description Provider 01/06/2021 T81.30xA [...] 12:45 pm - Anais Kevin MD at [facility] 01/06/2021 - Anais Kevin MD* T81.30xA Disruption [...] Comments:* Has an insulin pump-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
--- OUTSIDE RECORDS SUMMARY | 2021-02-10 18:17 | CCD ---
Author Author [facility] Organization [facility] Address Unknown Phone Unavailable Care Team Providers Care Painter Set Name Role Phone DIDIER KEVIN MD Unavailable Unavailable DIDIER KEVIN MD Unavailable Unavailable Ama SIDDIQUI MD Unavailable Unavailable Ama SIDDIQUI MD Unavailable Unavailable Ama SIDDIQUI MD Unavailable Unavailable Ama SIDDIQUI MD Unavailable Unavailable Ama SIDDIQUI MD Unavailable Unavailable Ama SIDDIQUI MD Unavailable Unavailable Ama SIDDIQUI MD Unavailable Unavailable Zeeshan CHAPA DPM Unavailable [...] Unavailable Zeeshan CHAPA DPM Unavailable Unavailable Zeeshan CHAPAW DPM Unavailable Unavailable Zeeshan CHAPAW DPM Unavailable Unavailable Zeeshan CHAPAW DPM Unavailable Unavailable Zeeshan CHAPA DPM Unavailable Unavailable Zeeshan CHAPAW DPM Unavailable Unavailable Zeeshan CHAPA DPM Unavailable Unavailable MAJAK, R MOOSE DPM [...] Unavailable MAJAK, R MOOSE DPM Unavailable Unavailable Shelby Kuhn MD Unavailable Unavailable [...] Unavailable Unavailable Shelby Kuhn MD Unavailable Unavailable WhitdHanna MD Unavailable Unavailable CederstrandHanna MD Unavailable Unavailable JosietranHanna stephens MD Unavailable Unavailable JosietrandHanna MD Unavailable Unavailable JosietranHanna stephens MD Unavailable Unavailable CedugotrandHanna MD Unavailable Unavailable Cederstrand, Hanna Chavez MD Unavailable Unavailable Cederstrand, Hanna Chavez MD Unavailable Unavailable Cederstrand, Hanna Chavez MD Unavailable Unavailable Cederstrand, Hanna Chavez MD Unavailable Unavailable Cederstrand, Hanna Chavez MD Unavailable Unavailable Cederstrand, Hanna Chavez MD Unavailable Unavailable Cederstrand, Hanna Chavez MD Unavailable Unavailable Cederstrand, Hanna Chavez MD Unavailable Unavailable Cederstrand, Hanna Chavez MD Unavailable Unavailable Cederstrand, Hanna Chavez MD Unavailable Unavailable Ama Malagon Unavailable Unavailable WojciechJarvis Manuel Unavailable Unavailable HathawayJarvis Manuel Unavailable Unavailable WojciechJarvis Manuel Unavailable Unavailable HathawayJarvis Manuel Unavailable Unavailable Hathaway, Jarvis Manuel Unavailable Unavailable HathawayJarvis Manuelcabrera ZURITA Unavailable Unavailable HathawayJarvis Manuel Unavailable Unavailable HathawayJarvis Manuel Unavailable Unavailable WojciechJarvis Manuelcabrera ZURITA Unavailable Unavailable HathawayJarvis Manuelcabrera ZURITA Unavailable Unavailable HathawayJarvis Manuel Unavailable Unavailable WojciechJarvis Manuelcabrera ZURITA Unavailable Unavailable HathawayJarvis Manuelcabrera ZURITA Unavailable Unavailable WojciechJarvis Manuel Unavailable Unavailable HathawayJarvis Manuel Unavailable Unavailable HathawayJarvis Manuel Unavailable Unavailable HathawayJarvis Manuel Unavailable Unavailable HathawayJarvis Manuelcabrera ZURITA Unavailable Unavailable HathawayJarvis Manuelcabrera ZURITA Unavailable Unavailable HathawayJarvis Manuelcabrera ZURITA Unavailable Unavailable WojciechJarvis Manuel Unavailable Unavailable HathawayJarvis Manuel MD Unavailable Unavailable HathawayJarvis Manuel MD Unavailable Unavailable WojciechJarvis Manuel Unavailable Unavailable WojciechJarvis Manuel MD Unavailable Unavailable HathawayJarvis Manuel Unavailable Unavailable HathawayJarvis Manuel MD Unavailable Unavailable HathawayJarvis Manuel MD Unavailable Unavailable WojciechJarvis Manuel Unavailable Unavailable HathawayJarvis Manuel MD Unavailable Unavailable WojciechJarvis Manuel MD Unavailable Unavailable HathawayJarvis Manuel MD Unavailable Unavailable HathawayJarvis Manuel Unavailable Unavailable HathawayJarvis Manuel MD Unavailable Unavailable HathawayJarvis Manuel Unavailable Unavailable HathawayJarvis Manuel Unavailable Unavailable WojciechJarvis Manuel MD Unavailable Unavailable Wojciech, L Manuel MD Unavailable Unavailable Wojciech, L Manuel MD Unavailable Unavailable Hathaway, L Manuel MD Unavailable Unavailable Hathaway, L Manuel MD Unavailable Unavailable Hathaway, L Manuel MD Unavailable Unavailable Hathaway, L Manuel MD Unavailable Unavailable Hathaway, L Manuel MD Unavailable Unavailable Wojciech, L Manuel MD Unavailable Unavailable Hathaway, L Manuel MD Unavailable Unavailable Wojciech, L Manuel MD Unavailable Unavailable Hathaway, L Manuel MD Unavailable Unavailable Dumont, L Florencia RPA Unavailable [...] Unavailable Dumont, L Florencia RPA Unavailable Unavailable Ama Malagon PA Unavailable [phone] Ama Malagon Unavailable [phone] Ama Malagon PA Unavailable [phone] Ama Malagon PA Unavailable [phone] Ama Malagon Unavailable [phone] Ama Malagon Unavailable [phone] Ama Malagon Unavailable [phone] Ama Malagon Unavailable [phone] Ama Malagon Unavailable [phone] Ama Malagon Unavailable [phone] Ama Malagon Unavailable [phone] Ama Malagon Unavailable [phone] Ama Malagon Unavailable [phone] Re-disclosure Warning The records that you are [...] is protected by Article 27-F of the [facility] Public Health law. If you continue you may have access to information: Regarding HIV / AIDS; Provided by facilities licensed or operated by the [facility] Office of Mental Health; or Provided by the [facility] Office for People With Developmental Disabilities. If such information is present, then the following [facility] mandated warning applies: This information has [...] law may result in a fine or prison sentence or both. A general authorization for the release of medical or other information is NOT sufficient authorization for further disc losure. Family History Family Member Name Family Member Gender Family Member Status Date o f Status Description Data Source(s) Unknown Unknown Problem MEDENT ([facility]) father Encounters Encounter Providers Location Date Indications Data Source(s ) Unknown [address] [facility] [address] 01/27/2021 12:00:00 AM EDT eCW1 [facility] Outpatient Attender: Alex Kuhn MD CPSCAORT-CPSCAEND 01/24 12:59:00 PM EDT - 01/24/2021 01:00:00 PM EDT E10.65 [facility] E10.65 Patient discharged. Outpatient [address] [facility] [address] 01/21/2021 12:00:00 AM EDT eCW1 ([facility] [place] [address] [facility] [address] 01/07/2021 12:00:00 AM EDT [facility]CW1 [facility] Office Visit Attender: KAREN Mcnair/Анна/Indra/Re indl 01/06/2021 11:45:00 AM EDT [facility] [place] [address] [facility] [address] 12/31/2020 12:00:00 AM EDT eCW1 [facility]) (TCM) Transition of Care Visit [address] [place] [address] 12/23/2020 12:00:00 AM EDT eCW1 ([facility]) [place] [address] [facility] [address] 12/22/2020 12:00:00 AM EDT eCW1 ([facility]) Office Visit Attender: KAREN Mcnair/Анна/Indra/Re indl 12/17/2020 01:00:00 PM EDT MED[facility] ([facility]) [place] [address] [facility] [address] 12/16/2020 12:00:00 AM EDT eCW1 ([facility]) [place] [address] [facility] [address] 12/14/2020 12:00:00 AM EDT eCW1 ([facility]) Outpatient Attender: Manuel Mcnair/Анна/Indra/ Reindl 11/11/2020 08:30:00 AM EDT MEDENT ([facility]) Outpatient Attender: MATT Mcnair/Анна/Indra/Reincailin 11/01/2020 02:30:00 PM EDT MEDENT ([facility]) [place] [address] [facility] [address] 10/20/2020 12:00:00 AM EDT eCW1 ([facility]) Outpatient Attender: Jose GLEASONttender: Maurisio AVENDAÑO CPSCAORT-CPSCAEND 10/11/2020 10:38:00 AM EDT - 10/11/2020 10:39:00 AM ED T E10.65 [facility] E10.65 Patient discharged. [place] [address] [facility] [address] 09/16/2020 12:00:00 AM EDT eCW1 ([facility]) Unknown [address] [facility] [address] 09/16/2020 12:00:00 AM EDT eCW1 ([facility]) Office Visit, Est Pt., Level 3 FC [address] [place] [address] 08/24/2020 12:00:00 AM EDT eCW1 ([facility]) Unknown [address] [facility] [address] 08/17/2020 12:00:00 AM EDT eCW1 ([facility]) Unknown [address] [facility] [address] 08/17/2020 12:00:00 AM EDT eCW1 ([facility]) Outpatient Attender: Kathy Mcnair/Анна/Indra/ Reindl 08/12/2020 11:00:00 AM EDT MEDENT ([facility]) [place] [address] [facility] [address] 08/05/2020 12:00:00 AM EDT eCW1 ([facility]) [place] [address] [facility] [address] 07/27/2020 12:00:00 AM EDT [facility]CW1 [facility] [place] [address] [facility] [address] 07/27/2020 12:00:00 AM EDT [facility]CW1 [facility] Outpatient Attender: Alex Kuhn MD CPSCAORT-CPSCAEND 07/09 01:20:00 PM EDT - 07/09/2020 01:21:00 PM EDT E10.65 [facility] E10.65 Patient discharged. [place] [address] [facility] [address] 07/09/2020 12:00:00 AM EDT eCW1 [facility] Outpatient Attender: Kathy Mcnair/Анна/Indra/ Talon 07/08/2020 11:45:00 AM EDT MEDENT ([facility]) [place] [address] [facility] [address] 07/06/2020 12:00:00 AM EDT eCW1 [facility] [place] [address] [facility] [address] 07/02/2020 12:00:00 AM EDT eCW1 [facility] [place] [address] [facility] [address] 06/24/2020 12:00:00 AM EDT eCW1 [facility] [place] [address] [facility] [address] 06/09/2020 12:00:00 AM EST eCW1 [facility]) Outpatient Attender: Kathy Mcnair/Анна/Indra/ Reindl 06/07/2020 12:00:00 PM EST MED[facility] ([facility]) Office Visit Attender: Florencia Mcnair/[place]/Indra/R eindl 05/27/2020 09:30:00 AM EST [facility] ([facility]) Unknown [address] [facility] [address] 05/20/2020 12:00:00 AM EST eCW1 [facility]) (TCM) Transition of Care Visit [address] [place] [address] 05/13/2020 12:00:00 AM EST eCW1 ([facility]) Office Visit Attender: Florencia Mcnair/Анна/Indra/R eindl 05/12/2020 01:00:00 PM EST [facility] ([facility]) Unknown [address] [facility] [address] 05/10/2020 12:00:00 AM EST [facility]CW1 [facility] Unknown [address] [facility] [address] 05/10/2020 12:00:00 AM EST [facility]CW1 [facility] Unknown [address] [facility] [address] 05/05/2020 12:00:00 AM EST eCW1 [facility]) TeleMedicine Phone E/M by Phys 11-20 Min [address] [place] [address] 05/05/2020 12:00:00 AM EST eCW1 ([facility]) Unknown [address] [facility] [address] 05/05/2020 12:00:00 AM EST [facility]CW1 [facility] Unknown [address] [facility] [address] 04/30/2020 12:00:00 AM EST eCW1 ([facility]) (TCM) Transition of Care Visit [address] [place] [address] 04/29/2020 12:00:00 AM EST [facility]CW1 [facility] [place] [address] [facility] [address] 04/29/2020 12:00:00 AM EST eCW1 [facility]) Unknown [address] [facility] [place] [address] 04/28/2020 12:00:00 AM EST eCW1 ([facility]) Unknown [address] [facility] [address] 04/26/2020 12:00:00 AM EST eCW1 ([facility]) Unknown [address] [facility] [place] [address] 04/23/2020 12:00:00 AM EST eCW1 ([facility]) Unknown [address] [facility] [place] [address] 04/22/2020 12:00:00 AM EST eCW1 ([facility]) Unknown [address] [facility] [address] 04/21/2020 12:00:00 AM EST eCW1 [facility]) Office Visit Attender: Florencia Mcnair/Анна/Indra/R eindl 04/12/2020 10:45:00 AM EST [facility] ([facility] Outpatient [address] [facility] [address] 04/06/2020 12:00:00 AM EST eCW1 [facility] Office Visit Attender: Florencia Mcnair/Анна/Indra/R eindl 04/05/2020 08:15:00 AM EST [facility] ([facility] [place] [address] [facility] [address] 03/31/2020 12:00:00 AM EST eCW1 ([facility]) Unknown [address] [facility] [place] [address] 03/31/2020 12:00:00 AM EST [facility]CW1 [facility]) Unknown [address] [facility] [address] 03/29/2020 12:00:00 AM EST eCW1 ([facility]) Unknown [address] [facility] [address] 03/24/2020 12:00:00 AM EST eCW1 ([facility]) Unknown [address] [facility] [address] 03/10/2020 12:00:00 AM EST eCW1 [facility]) Outpatient Attender: Alex Kuhn MD CPSCAORT-CPSCAEND 03/02 02:32:00 PM EST - 03/02/2020 02:33:00 PM EST E10.65 [facility] E10.65 Patient discharged. Unknown [address] [place] [address] 03/01/2020 12:00:00 AM EST eCW1 ([facility]) Outpatient Attender: Kathy Mcnair/Анна/Indra/ Talon 02/23/2020 12:30:00 PM EST MED[facility] ([facility] ([id number]) For Template [employer] [address] [place] [address] 02/23/2020 12:00:00 AM EST eCW1 ([facility]) Unknown [address] [facility] [address] 02/20/2020 12:00:00 AM EST eCW1 ([facility]) Office Visit, Est Pt., Level 2 FC [address] [place] [address] 02/19/2020 12:00:00 AM EST eCW1 ([facility]) Unknown [address] [place] [address] 02/19/2020 12:00:00 AM EST eCW1 [facility] Office Visit Attender: MOOSE CHAPA [facility] Office 01/31 12:00:00 PM EST MEDENT ([facility] Unknown [address] [facility] [address] 02/18/2020 12:00:00 AM EST eCW1 ([facility]) Unknown [address] [facility] [address] 02/10/2020 12:00:00 AM EST eCW1 ([facility]) Outpatient [address] [facility] [address] 02/09/2020 12:00:00 AM EST eCW1 ([facility]) Unknown [address] [facility] [address] 02/04/2020 12:00:00 AM EST eCW1 ([facility]) Office Visit Attender: MOOSE CHAPA [facility] Office 05/2019 01:45:00 PM EST MEDENT ([facility] Unknown [address] [facility] [address] 01/26/2020 12:00:00 AM EDT eCW1 ([facility]) Outpatient Attender: MOOSE CHAPA [facility] Office 01/01 02:30:00 PM EDT MEDENT ([facility] Outpatient Attender: Florencia Mcnair/Анна/Indra/Zeeshan mcdowell 01/20/2020 11:30:00 AM EDT MEDENT ([facility]) Outpatient [address] [facility] [address] 01/19/2020 12:00:00 AM EDT eCW1 ([facility]) ([id number]) For [facility] [address] [place] [address] 01/09/2020 12:00:00 AM EDT eCW1 ([facility]) Unknown [address] [place] [address] 01/01/2020 12:00:00 AM EDT eCW1 ([facility]) [place] [address] [facility] [address] 12/30/2019 12:00:00 AM EDT eCW1 ([facility]) Outpatient Attender: Florencia Mcanir/Анна/Indra/R eindl 12/17/2019 09:00:00 AM EDT MEDENT ([facility] Immunizations Vaccine Date Status Description Data Source(s) COVID-19 VACC,MRNA(MODERNA)/PF 09/06/2020 12:00:00 AM EDT completed [facility] COVID-19 VACCINE Moderna 09/06/2020 12:00:00 AM EDT completed [facility] Vaccine Series Complete: YESThis Data wa s Submitted to [facility]. COVID-19 VACC,MRNA(MODERNA)/PF 08/13/2020 12:00:00 AM EDT completed [facility] COVID-19 VACCINE Moderna 08/13/2020 12:00:00 AM EDT completed [facility] Vaccine Series Complete: NOThis Data was Submitted to [facility]. Medications Medication Brand Name Start Date Product Form Dose Route Admi nistrative Instructions Pharmacy Instructions Status Indications Reaction Description Data Source(s) Bisacodyl 10 MG Rectal Suppository Bisacodyl 10 MG 12/14/2020 12:00 :00 AM EDT 1.0 {suppository_as_needed} active Bisa codyl 10 MG eCW1 ([facility]) Docusate Sodium 100 MG Oral Capsule [Colace] Colace 100 MG C olace 100 MG 12/14/2020 12:00:00 AM EDT 1.0 {capsule_as_needed} suspended Colace 100 MG eCW1 ([facility]) Bisacodyl 10 MG Rectal Suppository Bisacodyl 10 MG 12/14/2020 12:00 :00 AM EDT 1.0 {suppository_as_needed} suspended Bi sacodyl 10 MG eCW1 ([facility]) Bisacodyl 10 MG Rectal Suppository Bisacodyl 10 MG 12/14/2020 12:00 :00 AM EDT 1.0 {suppository_as_needed} suspended Bi sacodyl 10 MG eCW1 ([facility]) Bisacodyl 10 MG Rectal Suppository Bisacodyl 10 MG 12/14/2020 12:00 :00 AM EDT 1.0 {suppository_as_needed} suspended Bi sacodyl 10 MG eCW1 ([facility]) Docusate Sodium 100 MG Oral Capsule [Colace] Colace 100 MG C olace 100 MG 12/14/2020 12:00:00 AM EDT 1.0 {capsule_as_needed} active Colace 100 MG eCW1 ([facility]) Docusate Sodium 100 MG Oral Capsule [Colace] Colace 100 MG C olace 100 MG 12/14/2020 12:00:00 AM EDT 1.0 {capsule_as_needed} suspended Colace 100 MG eCW1 ([facility]) Bisacodyl 10 MG Rectal Suppository Bisacodyl 10 MG 12/14/2020 12:00 :00 AM EDT 1.0 {suppository_as_needed} suspended Bi sacodyl 10 MG eCW1 ([facility]) Bisacodyl 10 MG Rectal Suppository Bisacodyl 10 MG 12/14/2020 12:00 :00 AM EDT 1.0 {suppository_as_needed} suspended Bi sacodyl 10 MG eCW1 ([facility]) Bisacodyl 10 MG Rectal Suppository Bisacodyl 10 MG 12/14/2020 12:00 :00 AM EDT 1.0 {suppository_as_needed} suspended Bi sacodyl 10 MG eCW1 ([facility]) Docusate Sodium 100 MG Oral Capsule [Colace] Colace 100 MG C olace 100 MG 12/14/2020 12:00:00 AM EDT 1.0 {capsule_as_needed} suspended Colace 100 MG eCW1 ([facility]) Docusate Sodium 100 MG Oral Capsule [Colace] Colace 100 MG C olace 100 MG 12/14/2020 12:00:00 AM EDT 1.0 {capsule_as_needed} suspended Colace 100 MG eCW1 ([facility]) Docusate Sodium 100 MG Oral Capsule [Colace] Colace 100 MG C olace 100 MG 12/14/2020 12:00:00 AM EDT 1.0 {capsule_as_needed} suspended Colace 100 MG eCW1 ([facility]) Docusate Sodium 100 MG Oral Capsule [Colace] Colace 100 MG C olace 100 MG 12/14/2020 12:00:00 AM EDT 1.0 {capsule_as_needed} suspended Colace 100 MG eCW1 ([facility]) Bisacodyl 10 MG Rectal Suppository Bisacodyl 10 MG 12/14/2020 12:00 :00 AM EDT 1.0 {suppository_as_needed} suspended Bi sacodyl 10 MG eCW1 ([facility]) Docusate Sodium 100 MG Oral Capsule [Colace] Colace 100 MG C olace 100 MG 12/14/2020 12:00:00 AM EDT 1.0 {capsule_as_needed} suspended Colace 100 MG eCW1 ([facility]) Ketoconazole 20 MG/ML Topical Cream Ketoconazole 2 % Ketocon azole 2 % 09/16/2020 12:00:00 AM EDT suspended Keto conazole 2 % eCW1 ([facility]) Ketoconazole 20 MG/ML Topical Cream Ketoconazole 2 % Ketocon azole 2 % 09/16/2020 12:00:00 AM EDT active Ketocon azole 2 % eCW1 ([facility]) Ketoconazole 20 MG/ML Topical Cream Ketoconazole 2 % Ketocon azole 2 % 09/16/2020 12:00:00 AM EDT active Ketocon azole 2 % eCW1 ([facility]) Ketoconazole 20 MG/ML Topical Cream Ketoconazole 2 % Ketocon azole 2 % 09/16/2020 12:00:00 AM EDT suspended Keto conazole 2 % eCW1 ([facility]) Ketoconazole 20 MG/ML Topical Cream Ketoconazole 2 % Ketocon azole 2 % 09/16/2020 12:00:00 AM EDT suspended Keto conazole 2 % eCW1 ([facility]) Ketoconazole 20 MG/ML Topical Cream Ketoconazole 2 % Ketocon azole 2 % 09/16/2020 12:00:00 AM EDT suspended Keto conazole 2 % eCW1 ([facility]) Ketoconazole 20 MG/ML Topical Cream Ketoconazole 2 % Ketocon azole 2 % 09/16/2020 12:00:00 AM EDT suspended Keto conazole 2 % eCW1 ([facility]) Ketoconazole 20 MG/ML Topical Cream Ketoconazole 2 % Ketocon azole 2 % 09/16/2020 12:00:00 AM EDT suspended Keto conazole 2 % eCW1 ([facility]) Ketoconazole 20 MG/ML Topical Cream Ketoconazole 2 % Ketocon azole 2 % 09/16/2020 12:00:00 AM EDT active Ketocon azole 2 % eCW1 ([facility]) Ketoconazole 20 MG/ML Topical Cream Ketoconazole 2 % Ketocon azole 2 % 09/16/2020 12:00:00 AM EDT active Ketocon azole 2 % eCW1 ([facility]) Ketoconazole 20 MG/ML Topical Cream Ketoconazole 2 % Ketocon azole 2 % 09/16/2020 12:00:00 AM EDT suspended Keto conazole 2 % eCW1 ([facility]) Prednisone 1 MG Oral Tablet predniSONE 1 MG predniSONE 1 MG 07/27/2020 12:00:00 AM EDT active predniSONE 1 MG e CW1 ([facility]) Prednisone 1 MG Oral Tablet PredniSONE 1 MG PredniSONE 1 MG 07/27/2020 12:00:00 AM EDT active PredniSONE 1 MG e CW1 ([facility]) Prednisone 1 MG Oral Tablet predniSONE 1 MG predniSONE 1 MG 07/27/2020 12:00:00 AM EDT active predniSONE 1 MG e CW1 ([facility]) Prednisone 1 MG Oral Tablet predniSONE 1 MG predniSONE 1 MG 07/27/2020 12:00:00 AM EDT active predniSONE 1 MG e CW1 ([facility]) Prednisone 1 MG Oral Tablet PredniSONE 1 MG PredniSONE 1 MG 07/27/2020 12:00:00 AM EDT active PredniSONE 1 MG e CW1 ([facility]) Prednisone 1 MG Oral Tablet predniSONE 1 MG predniSONE 1 MG 07/27/2020 12:00:00 AM EDT active predniSONE 1 MG e CW1 ([facility]) Prednisone 1 MG Oral Tablet predniSONE 1 MG predniSONE 1 MG 07/27/2020 12:00:00 AM EDT active predniSONE 1 MG e CW1 ([facility]) Prednisone 1 MG Oral Tablet PredniSONE 1 MG PredniSONE 1 MG 07/27/2020 12:00:00 AM EDT active PredniSONE 1 MG e CW1 ([facility]) Prednisone 1 MG Oral Tablet predniSONE 1 MG predniSONE 1 MG 07/27/2020 12:00:00 AM EDT active predniSONE 1 MG e CW1 ([facility]) Prednisone 1 MG Oral Tablet PredniSONE 1 MG PredniSONE 1 MG 07/27/2020 12:00:00 AM EDT active PredniSONE 1 MG e 1 ([facility]) Prednisone 1 MG Oral Tablet predniSONE 1 MG predniSONE 1 MG 07/27/2020 12:00:00 AM EDT active predniSONE 1 MG e CW1 ([facility]) Prednisone 1 MG Oral Tablet predniSONE 1 MG predniSONE 1 MG 07/27/2020 12:00:00 AM EDT active predniSONE 1 MG e CW1 ([facility]) Prednisone 1 MG Oral Tablet predniSONE 1 MG predniSONE 1 MG 07/27/2020 12:00:00 AM EDT active predniSONE 1 MG e CW1 ([facility]) Prednisone 1 MG Oral Tablet predniSONE 1 MG predniSONE 1 MG 07/27/2020 12:00:00 AM EDT active predniSONE 1 MG e CW1 ([facility]) Prednisone 1 MG Oral Tablet PredniSONE 1 MG PredniSONE 1 MG 07/27/2020 12:00:00 AM EDT active PredniSONE 1 MG e CW1 ([facility]) Prednisone 1 MG Oral Tablet PredniSONE 1 MG PredniSONE 1 MG 07/27/2020 12:00:00 AM EDT active PredniSONE 1 MG e CW1 ([facility]) Prednisone 1 MG Oral Tablet predniSONE 1 MG predniSONE 1 MG 07/27/2020 12:00:00 AM EDT active predniSONE 1 MG e CW1 ([facility]) aripiprazole 5 MG Oral Tablet Aripiprazole 5 MG Aripiprazole 5 MG 07/06/2020 12:00:00 AM EDT 1.0 {tablet} active Ar ipiprazole 5 MG eCW1 ([facility]) aripiprazole 5 MG Oral Tablet ARIPiprazole 5 MG ARIPiprazole 5 MG 07/06/2020 12:00:00 AM EDT 1.0 {tablet} active AR IPiprazole 5 MG eCW1 ([facility]) aripiprazole 5 MG Oral Tablet ARIPiprazole 5 MG ARIPiprazole 5 MG 07/06/2020 12:00:00 AM EDT 1.0 {tablet} active AR IPiprazole 5 MG eCW1 ([facility]) aripiprazole 5 MG Oral Tablet Aripiprazole 5 MG Aripiprazole 5 MG 07/06/2020 12:00:00 AM EDT 1.0 {tablet} active Ar ipiprazole 5 MG eCW1 ([facility]) aripiprazole 5 MG Oral Tablet Aripiprazole 5 MG Aripiprazole 5 MG 07/06/2020 12:00:00 AM EDT 1.0 {tablet} active Ar ipiprazole 5 MG eCW1 ([facility]) aripiprazole 5 MG Oral Tablet ARIPiprazole 5 MG ARIPiprazole 5 MG 07/06/2020 12:00:00 AM EDT 1.0 {tablet} active AR IPiprazole 5 MG eCW1 ([facility]) aripiprazole 5 MG Oral Tablet ARIPiprazole 5 MG ARIPiprazole 5 MG 07/06/2020 12:00:00 AM EDT 1.0 {tablet} active AR IPiprazole 5 MG eCW1 ([facility]) aripiprazole 5 MG Oral Tablet Aripiprazole 5 MG Aripiprazole 5 MG 07/06/2020 12:00:00 AM EDT 1.0 {tablet} active Ar ipiprazole 5 MG eCW1 ([facility]) aripiprazole 5 MG Oral Tablet ARIPiprazole 5 MG ARIPiprazole 5 MG 07/06/2020 12:00:00 AM EDT 1.0 {tablet} active AR IPiprazole 5 MG eCW1 ([facility]) aripiprazole 5 MG Oral Tablet Aripiprazole 5 MG Aripiprazole 5 MG 07/06/2020 12:00:00 AM EDT 1.0 {tablet} active Ar ipiprazole 5 MG eCW1 ([facility]) aripiprazole 5 MG Oral Tablet Aripiprazole 5 MG Aripiprazole 5 MG 07/06/2020 12:00:00 AM EDT 1.0 {tablet} active Ar ipiprazole 5 MG eCW1 ([facility]) aripiprazole 5 MG Oral Tablet ARIPiprazole 5 MG ARIPiprazole 5 MG 07/06/2020 12:00:00 AM EDT 1.0 {tablet} active AR IPiprazole 5 MG eCW1 ([facility]) aripiprazole 5 MG Oral Tablet Aripiprazole 5 MG Aripiprazole 5 MG 07/06/2020 12:00:00 AM EDT 1.0 {tablet} active Ar ipiprazole 5 MG eCW1 ([facility]) aripiprazole 5 MG Oral Tablet ARIPiprazole 5 MG ARIPiprazole 5 MG 07/06/2020 12:00:00 AM EDT 1.0 {tablet} active AR IPiprazole 5 MG eCW1 ([facility]) aripiprazole 5 MG Oral Tablet ARIPiprazole 5 MG ARIPiprazole 5 MG 07/06/2020 12:00:00 AM EDT 1.0 {tablet} active AR IPiprazole 5 MG eCW1 ([facility]) aripiprazole 5 MG Oral Tablet ARIPiprazole 5 MG ARIPiprazole 5 MG 07/06/2020 12:00:00 AM EDT 1.0 {tablet} active AR IPiprazole 5 MG eCW1 ([facility]) aripiprazole 5 MG Oral Tablet ARIPiprazole 5 MG ARIPiprazole 5 MG 07/06/2020 12:00:00 AM EDT 1.0 {tablet} active AR IPiprazole 5 MG eCW1 ([facility]) aripiprazole 5 MG Oral Tablet ARIPiprazole 5 MG ARIPiprazole 5 MG 07/06/2020 12:00:00 AM EDT 1.0 {tablet} active AR IPiprazole 5 MG eCW1 ([facility]) aripiprazole 5 MG Oral Tablet Aripiprazole 5 MG Aripiprazole 5 MG 07/06/2020 12:00:00 AM EDT 1.0 {tablet} active Ar ipiprazole 5 MG eCW1 ([facility]) aripiprazole 5 MG Oral Tablet Aripiprazole 5 MG Aripiprazole 5 MG 07/06/2020 12:00:00 AM EDT 1.0 {tablet} active Ar ipiprazole 5 MG eCW1 ([facility]) Cephalexin 500 MG Oral Capsule Cephalexin 05/27/2020 12:00:00 AM EST ORAL completed MEDENT ([facility], ) Cephalexin 500 MG Oral Capsule [Keflex] Keflex 04/12/2020 12:00:0 0 AM EST ORAL completed MEDENT ([facility], ) Misc. Devices - UNK 03/11/2020 12:00:00 AM EST active Misc. Devices - eCW1 ([facility]) Misc. Devices - UNK 03/11/2020 12:00:00 AM EST active Misc. Devices - eCW1 ([facility]) Misc. Devices - UNK 03/11/2020 12:00:00 AM EST active Misc. Devices - eCW1 ([facility]) Misc. Devices - UNK 03/11/2020 12:00:00 AM EST active Misc. Devices - eCW1 ([facility]) Misc. Devices - UNK 03/11/2020 12:00:00 AM EST active Misc. Devices - eCW1 ([facility]) Misc. Devices - UNK 03/11/2020 12:00:00 AM EST active Misc. Devices - eCW1 ([facility]) Misc. Devices - UNK 03/11/2020 12:00:00 AM EST active Misc. Devices - eCW1 ([facility]) Misc. Devices - UNK 03/11/2020 12:00:00 AM EST active Misc. Devices - eCW1 ([facility]) Misc. Devices - UNK 03/11/2020 12:00:00 AM EST active Misc. Devices - eCW1 ([facility]) Misc. Devices - UNK 03/11/2020 12:00:00 AM EST active Misc. Devices - eCW1 ([facility]) Misc. Devices - UNK 03/11/2020 12:00:00 AM EST active Misc. Devices - eCW1 ([facility]) Misc. Devices - UNK 03/11/2020 12:00:00 AM EST active Misc. Devices - eCW1 ([facility]) Misc. Devices - UNK 03/11/2020 12:00:00 AM EST active Misc. Devices - eCW1 ([facility]) Misc. Devices - UNK 03/11/2020 12:00:00 AM EST active Misc. Devices - eCW1 ([facility]) Misc. Devices - UNK 03/11/2020 12:00:00 AM EST active Misc. Devices - eCW1 ([facility]) Misc. Devices - UNK 03/11/2020 12:00:00 AM EST active Misc. Devices - eCW1 ([facility]) Misc. Devices - UNK 03/11/2020 12:00:00 AM EST active Misc. Devices - eCW1 ([facility]) Misc. Devices - UNK 03/11/2020 12:00:00 AM EST active Misc. Devices - eCW1 ([facility]) Misc. Devices - UNK 03/11/2020 12:00:00 AM EST active Misc. Devices - eCW1 ([facility]) Misc. Devices - UNK 03/11/2020 12:00:00 AM EST active Misc. Devices - eCW1 ([facility]) Wheelchair - Wheelchair - 02/24/2020 12:00:00 AM EST active Wheelchair - eCW1 ([facility]) Wheelchair - Wheelchair - 02/24/2020 12:00:00 AM EST active Wheelchair - eCW1 ([facility]) Wheelchair - Wheelchair - 02/24/2020 12:00:00 AM EST active Wheelchair - eCW1 ([facility]) Wheelchair - Wheelchair - 02/24/2020 12:00:00 AM EST active Wheelchair - eCW1 ([facility]) Wheelchair - Wheelchair - 02/24/2020 12:00:00 AM EST active Wheelchair - eCW1 ([facility]) Wheelchair - Wheelchair - 02/24/2020 12:00:00 AM EST active Wheelchair - eCW1 ([facility]) Wheelchair - Wheelchair - 02/24/2020 12:00:00 AM EST active Wheelchair - eCW1 ([facility]) Wheelchair - Wheelchair - 02/24/2020 12:00:00 AM EST active Wheelchair - eCW1 ([facility]) Wheelchair - Wheelchair - 02/24/2020 12:00:00 AM EST active Wheelchair - eCW1 ([facility]) Wheelchair - Wheelchair - 02/24/2020 12:00:00 AM EST active Wheelchair - eCW1 ([facility]) Wheelchair - Wheelchair - 02/24/2020 12:00:00 AM EST active Wheelchair - eCW1 ([facility]) Wheelchair - Wheelchair - 02/24/2020 12:00:00 AM EST active Wheelchair - eCW1 ([facility]) Wheelchair - Wheelchair - 02/24/2020 12:00:00 AM EST active Wheelchair - eCW1 ([facility]) Wheelchair - Wheelchair - 02/24/2020 12:00:00 AM EST active Wheelchair - eCW1 ([facility]) Wheelchair - Wheelchair - 02/24/2020 12:00:00 AM EST active Wheelchair - eCW1 ([facility]) Wheelchair - Wheelchair - 02/24/2020 12:00:00 AM EST active Wheelchair - eCW1 ([facility]) Wheelchair - Wheelchair - 02/24/2020 12:00:00 AM EST active Wheelchair - eCW1 ([facility]) Wheelchair - Wheelchair - 02/24/2020 12:00:00 AM EST active Wheelchair - eCW1 ([facility]) Wheelchair - Wheelchair - 02/24/2020 12:00:00 AM EST active Wheelchair - eCW1 ([facility]) Wheelchair - Wheelchair - 02/24/2020 12:00:00 AM EST active Wheelchair - eCW1 ([facility]) Wheelchair - Wheelchair - 02/24/2020 12:00:00 AM EST active Wheelchair - eCW1 ([facility]) Wheelchair - Wheelchair - 02/24/2020 12:00:00 AM EST active Wheelchair - eCW1 ([facility]) Wheelchair - Wheelchair - 02/24/2020 12:00:00 AM EST active Wheelchair - eCW1 ([facility]) Cephalexin 500 MG Oral Capsule Cephalexin 02/02/2020 12:00:00 AM EST ORAL active [facility] ([facility] tramadol hydrochloride 50 MG Oral Tablet Tramadol HCL 02/02/2020 12:00:00 AM EST active MED[facility] ([facility] Insurance Providers Payer name Policy type / Coverage type Policy ID Covered constitution party ID Covered constitution party's relationship to wright Policy Wright Plan Information COMPUTER SCIENCE GABRIEL RHONDA UNAVAILABLE SELF UNAVAILABLE PERSONAL PAY UNAVAILABLE 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 GABRIEL RHONDA [id number] SELF [id number] MEDICARE [id number] SELF [id number] A MEDICARE PART A [id number] Patient [id number] MEDICARE [id number] SP [id number] A MEDICARE A [id number] Self [id number] A MEDICARE [id number] SP [id number] A MEDICAID M [id number] Self [id number] MEDICAID [id number] SP [id number] MEDICAID [id number] SP [id number] EMEDNY [id number] SP [id number] [facility] [id number] SP [id number] [facility] [id number] SP [id number] MEDICARE [id number] SP [id number] MEDICARE COMPLETE [id number] SP [id number] MEDICARE COMPLETE [id number] SP [id number] WELLCARE [id number] SP [id number] WELLCARE [id number] SP [id number] WELLCARE O [id number] S [id number] WELLCARE [id number] S [id number] WELLCARE O [id number] S [id number] MEDICARE [id number] SP [id number] MEDICAID [id number] SP [id number] MEDICARE C [id number] S [id number] WELLCARE [id number] S [id number] MEDICARE [id number] S [id number] WELLCARE [id number] S [id number] MEDICARE -RECURRING [id number] 18 [id number] MEDICAID -RECURRING [id number] ANSI-Medicaid [id number] ANSI-Medicare Part B [id number] ANSI-Medicaid [id number] ANSI-Medicare Part B [id number] ANSI-Medicare Part B [id number] ANSI-Medicaid [id number] ANSI-Medicare Part B [id number] ANSI-Medicaid [id number] ANSI-Medicaid [id number] ANSI-Medicare Part B [id number] ANSI-Medicaid [id number] ANSI-Medicare Part B [id number] ANSI-Medicaid [id number] ANSI-Medicare Part B [id number] ANSI-Medicaid [id number] ANSI-Medicare Part B [id number] ANSI-Medicare Part B [id number] ANSI-Medicaid [id number] ANSI-Medicare Part B [id number] ANSI-Medicaid [id number] ANSI-Medicare Part B [id number] ANSI-Medicaid [id number] ANSI-Medicare Part B [id number] ANSI-Medicaid [id number] ANSI-Medicaid [id number] ANSI-Medicare Part B [id number] ANSI-Medicare Part B [id number] ANSI-Medicaid [id number] MEDICARE -RECURRING [id number] 18 [id number] ANSI-Medicaid [id number] ANSI-Medicare Part B [id number] ANSI-Medicaid [id number] ANSI-Medicare Part B [id number] ANSI-Medicare Part B [id number] ANSI-Medicaid [id number] Medicaid [place] Medigap Part B [id number] Self [id number] Medicare [place] [place] Primary [id number] Self [id number] ANSI-Medicare Part B [id number] ANSI-Medicaid [id number] ANSI-Medicaid [id number] ANSI-Medicare Part B [id number] ANSI-Medicaid [id number] ANSI-Medicare Part B [id number] ANSI-Medicare Part B [id number] ANSI-Medicaid [id number] ANSI-Medicare Part B [id number] ANSI-Medicaid [id number] MEDICARE [id number] ANSI-Medicare Part B [id number] ANSI-Medicaid [id number] ANSI-Medicaid [id number] ANSI-Medicare Part B [id number] ANSI-Medicare Part B [id number] ANSI-Medicaid [id number] ANSI-Medicaid [id number] ANSI-Medicare Part B [id number] ANSI-Medicaid [id number] ANSI-Medicare Part B [id number] ANSI-Medicare Part B [id number] ANSI-Medicaid [id number] ANSI-Medicaid [id number] ANSI-Medicare Part B [id number] ANSI-Medicaid [id number] ANSI-Medicare Part B [id number] ANSI-Medicaid [id number] ANSI-Medicare Part B [id number] ANSI-Medicaid [id number] ANSI-Medicare Part B [id number] ANSI-Medicaid [id number] ANSI-Medicare Part B [id number] ANSI-Medicare Part B [id number] ANSI-Medicaid [id number] ANSI-Medicare Part B [id number] ANSI-Medicaid [id number] MEDICARE C [id number] S [id number] A [facility] MEDICARE PART B C [id number] S [id number] Medicaid [facility] Part B [id number] Self [id number] Medicare [place] [place] Primary [id number] Self [id number] [facility] C [id number] S [id number] Medicaid [facility] Part B [id number] Self [id number] Medicare Upstate/[facility] Medicare Primary [id number] Self [id number] Medicaid [place] [facility] Part B [id number] Self [id number] Medicare [facility] [place] Medicare Primary [id number] Self [id number] MEDICAID [id number] SP [id number] MED[id number] SP [id number] MEDICAID -O/P [id number] 18 [id number] MEDICARE -O/P [id number] 18 [id number] OTHER WORKERS COMPENSATION [id number] SP [id number] MEDICAID -CLINIC [id number] MEDICARE -CLINIC [id number] 18 [id number] WORKMANS COMPENSATION -O/ [id number] 18 [id number] MEDICAID -PHYSICIAN [id number] WORKMANS COMPENSATION -O/P [id number] 18 [id number] MEDICARE -PHYSICIAN [id number] 18 [id number] [facility] MEDICAID [id number] SP [id number] MEDICARE COMPLETE [id number] SP [id number] MEDICARE [id number] SP [id number] [facility] MEDICARE [id number] S [id number] MEDICAID [id number] S [id number] MEDICARE COMPLETE [id number] SP [id number] [place]ED[place] [id number] MEDICARE COMPLETE-UHC O [id number] S [id number] MEDICAID M [id number] S [id number] [employer]ARE [id number] SP [id number] MEDICARE COMPLETE-UH O [id number] S [id number] [facility] MEDICARE [id number] S [id number] Problems, Conditions, and Diagnoses Code Display Name Description Problem Type Effective Dates Data Source(s) 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 (CU 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 OF 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 Diagnosis 01/24/2021 12:59:00 PM EDT [facility] Z96.41 Presence of insulin pump (external) (int ernal) PRESENCE OF INSULIN PUMP (EXTERNAL) (INTERNAL) Diagnosis 01/24/2021 12:59:00 PM EDT [facility] E10.65 Type 1 diabetes mellitus with hyperglyce sera TYPE 1 DIABETES MELLITUS WITH HYPERGLYCEMIA Diagnosis 01/24/2021 12:59:00 PM EDT [facility] S88.912A 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, level unspecified, initial encounter COMPLETE TRAUMATIC AMPUTATION OF L LOW LEG, LEVEL UNSP , INIT Diagnosis 10/11/2020 10:38:00 AM EDT [facility] S88.911A Complete traumatic amputatio n of right lower leg, level unspecified, initial encounter COMPLETE TRAUMATIC AMPUTATION OF R LOW LEG, LEVEL UNSP , INIT Diagnosis 10/11/2020 10:38:00 AM EDT [facility] E78.5 Hyperlipidemia, unspecified HYPERLIPIDEMIA, UNSPECIFIE D Diagnosis 10/11/2020 10:38:00 AM EDT [facility] E27.40 Unspecified adrenocortical insufficiency UNSPECIFIED ADRENOCORTICAL INSUFFICIENCY Diagnosis 10/11/2020 10:38:00 AM EDT [facility] M86.9 [id number] Osteomyelitis of other site, unspecified type Problem 01/07/2021 12:00:00 AM EDT eCW1 ([facility]) E16.1 Hypoglycemia Hypoglycemia Problem 01/06/2021 12:00:00 A M EDT [facility] ([facility], ) E11.59 Peripheral vascular disorder due to diab etes mellitus Peripheral vascular disorder due to diabetes mellitus Problem 01/06/2021 12:00:00 AM ED T [facility] ([facility], ) T81.30xA Traumatic wound dehiscence Traumatic wound dehiscence Problem 12/17/2020 12:00:00 AM EDT [facility] ([facility], ) 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 Problem 12/17/2020 12:00:00 AM EDT [facility] ([facility], ) D61.818 [id number] Pancytopenia Problem 12/16/2020 12:00:00 AM EDT eCW1 ([facility]) S88.111A [id number] Below-knee amputation of right lower extr emity Problem 04/06/2020 12:00:00 AM EST eCW1 ([facility]) Z89.511 [id number] Acquired absence of right leg below knee Problem 03/11/2020 12:00:00 AM EST eCW1 ([facility]) Z89.512 [id number] 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 Problem 03/11/2020 12:00:00 AM EST eCW1 ([facility]) S88.119A [id number] Amputation below knee Problem 02/24/2020 12: 00:00 AM EST eCW1 ([facility]) M86.9 [id number] Osteomyelitis of right foot, unspecif ied type Problem 02/19/2020 12:00:00 AM EST eCW1 ([facility]) [id number] O/E - Amputated left below knee O/E - Amputated left below knee Problem 01/26/2020 12:00:00 AM EDT [facility] ([facility] [id number] Pain in limb Pain in limb Problem 01/26/2020 12:00:00 A M EDT [facility] ([facility] 781999088 Gangrenous disorder Gangrenous disorder Problem 1 12:00:00 AM EDT [facility] [id number] Pressure ulcer of right foot stage 4 Pre ssure ulcer of right foot stage 4 Problem 01/26/2020 12:00:00 AM EDT [facility] 201980167 Type 2 diabetes mellitus with ulcer Type 2 diabetes mellitus with ulcer Problem 01/26/2020 12:00:00 AM EDT [facility] ([facility] L97.514 [id number] 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 Problem 12/31/2019 12:00:00 AM EDT [facility] ([facility] E11.621 [id number] Type 2 diabetes mellitus with foot ulcer Problem 12/31/2019 12:00:00 AM [place] [address] ([facility]) Surgeries/Procedures Procedure Description Date Indications Data Source(s) Hospital outpatient clinic visit for assessment and ma nagement of a patient Hospital Outpatient Clinic Visit 01/24/2021 12:00:00 AM [facility] GLUC BLD GLUC MNTR DEV CLEARED FDA SPEC HOME USE GLUCOSE BLO OD TEST 01/24/2021 12:00:00 AM [facility] COLLECTION VENOUS BLOOD VENIPUNCTURE ROUTINE VENIPUNCTURE 12:00:00 AM [facility] HEMOGLOBIN GLYCOSYLATED A1C GLYCOSYLATED HEMOGLOBIN TEST 12:00:00 AM [facility] LIPID PANEL LIPID PANEL 01/24/2021 12:00:00 AM [facility] BASIC METABOLIC PANEL CALCIUM TOTAL METABOLIC PANEL TOTAL CA 01/24/2021 12:00:00 AM [facility] Debridement Skin, Subcutaneous Tissue & Muscle 021 12:00:00 AM [facility] OFFICE OUTPATIENT VISIT 15 MINUTES 01/06/2021 12:00:00 AM EDT [facility] ) AMP LEG THRU TIBIA&FIBULA RE-AMPUTATION 12/08/2020 12: 00:00 AM EDT [facility] ([facility], ) OFFICE OUTPATIENT VISIT 15 MINUTES 11/11/2020 12:00:00 AM EDT [facility] ([facility], ) OFFICE OUTPATIENT VISIT 15 MINUTES 11/01/2020 12:00:00 AM EDT [facility] ([facility], ) COMPREHENSIVE METABOLIC PANEL COMPREHEN METABOLIC PANEL 09/30 12:00:00 AM [facility] OFFICE OUTPATIENT VISIT 15 MINUTES 08/12/2020 12:00:00 AM EDT [facility] ([facility], ) OFFICE OUTPATIENT VISIT 15 MINUTES 07/08/2020 12:00:00 AM EDT [facility] ([facility], ) OFFICE OUTPATIENT VISIT 15 MINUTES 06/07/2020 12:00:00 AM EST [facility] ([facility]) Amputation Below Knee 03/03/2020 12:00:00 AM EST [facility] ([facility]) FINE NEEDLE ASPIRATION W/O IMAGING GUIDANCE 02/23/2020 12:00:00 AM EST eCW1 ([facility]) Amputation Metatarsal W/Toe 01/28/2020 12:00:00 AM EDT [facility] ([facility] FINE NEEDLE ASPIRATION W/O IMAGING GUIDANCE 01/19/2020 12:00:00 AM EDT eCW1 ([facility]) FINE NEEDLE ASPIRATION W/O IMAGING GUIDANCE 01/09/2020 12:00:00 AM EDT [facility] ([facility] [facility] Revascularization,Endovascular,Transluminal Angioplasty 12/31/2019 12:00:00 AM EDT [facility] ([facility]) REVSC OPN/PRQ TIB/FABIENNE W/ANGIOPLASTY UNI 12/31/2019 12 :00:00 AM EDT [facility] ([facility]) REVSC OPN/PRQ TIB/FABIENNE W/ANGIOPLASTY UNI EA VSL 2019 12:00:00 AM EDT [facility] ([facility]) Moderate Sedation Services; Same Phys Intl 15 Mins; PT >= 5 Years 12/31/2019 12:00:00 AM EDT [facility] ([facility]) Results ID Date Data Source [id number] 01/24/2021 05:41:00 PM EDT [facility] Name Value Range Interpretation Code Description Data Mireille rce(s) Supporting Document(s) Hemoglobin A1C % Less than 5.7% Above high normal [facility] HBA1C: Normal: Less than 5.7% Prediabetes: 5.7% to 6.4% Diabetes: 6.5% or higher HA1C % vs Estimated Average Glucose (eAG) % eAG % eAG 6% 126 mg/dL 10% 240 mg/dL 7% 154 mg/dL 11% 269 mg/dL 8% 183 mg/dL 12% 298 mg/dL 9% 212 mg/dL Reference: [place] [employer], 2017 ID Date Data Source [id number] 01/24/2021 05:34:00 PM EDT [facility] Name Value Range Interpretation Code Description Data Mireille rce(s) Supporting Document(s) Sodium 137 mmol/L 137-145 Normal (applies to non-numeric resul ts) [facility] Potassium 3.5-5.1 Normal (applies to non-numeric resul ts) [facility] Chloride 107 mmol/L 98-112 Normal (applies to non-numeric resul ts) [facility] Carbon Dioxide CO2 22.0-33.0 Normal (applies to non-numer ic results) [facility] Anion Gap 4.0-11.0 Normal (applies to non-numeric resul ts) [facility] BUN 16 mg/dL 9-20 Normal (applies to non-numeric resul ts) [facility] Creatinine 0.80-1.50 Normal (applies to non-numeric resul ts) [facility] GFR 55 mL/min >60 Below low normal [facility] Result based on MDRD formula. Glucose Level 107 mg/dL 74-99 Above high normal [facility] The reference range is only applicable w hen fasting. Calcium-Uncorrected 8.4-10.2 Normal (applies to non-nume nelson results) [facility] Corrected Calcium 8.4-10.2 Normal (applies to non-numeri c results) [facility] ID Date Data Source [id number] 01/24/2021 05:34:00 PM EDT [facility] Name Value Range Interpretation Code Description Data Mireille rce(s) Supporting Document(s) Triglycerides 52 mg/dL 0-150 Normal (applies to non-numeric re sults) [facility] Cholesterol 119 mg/dL 0-200 Normal (applies to non-numeric resu lts) [facility] LDL Cholesterol,Direct 50 mg/dL <100 Normal (applies to non-n umeric results) [facility] LDL Interpretative Data Optimal <100 (mg/dL) Near optimal 100-129 (mg/dL) Borderline High 130-159 (mg/dL) High 160-189 (mg/dL) Very High >190 (mg/dL) HDL Cholesterol 63 mg/dL 40-60 Above high normal [facility] CHOL/HDL Ratio Normal (applies to non-numeric r esults) [facility] NATIONAL CHOLESTEROL GUIDEL [facility], [...] Average 13.5 11.0 ID Date Data Source [id number] 01/10/2021 06:21:00 AM EDT [facility] Name Value Range Interpretation Code Description Data Mireille rce(s) Supporting Document(s) SARS coronavirus 2 RNA [Presence] in Res piratory specimen by DAILY with probe detection NEGATIVE [facility] This lab was ordered by [facility] a nd reported by [facility]. ID Date Data Source [id number] 01/02/2021 02:12:00 PM EDT [facility] Name Value Range Interpretation Code Description Data Mireille rce(s) Supporting Document(s) SARS-CoV-2 (COVID 19) NEGATIVE - SARS-CoV-2 (COVID19) [facility] This lab was ordered by [facility] a nd reported by [facility]. ID Date Data Source [id number] 12/19/2020 11:07:00 PM EDT [facility] Name Value Range Interpretation Code Description Data Mireille rce(s) Supporting Document(s) SARS coronavirus 2 RNA [Presence] in Res piratory specimen by DAILY with probe detection NEGATIVE [facility] This lab was ordered by [facility] a nd reported by [facility]. ID Date Data Source [id number] 12/06/2020 12:21:00 AM EDT [facility] Name Value Range Interpretation Code Description Data Mireille rce(s) Supporting Document(s) SARS coronavirus 2 RNA [Presence] in Res piratory specimen by DAILY with probe detection NEGATIVE [facility] This lab was ordered by [facility] a nd reported by [facility]. ID Date Data Source [id number] 10/11/2020 01:58:00 PM EDT [facility] Name Value Range Interpretation Code Description Data Mireille rce(s) Supporting Document(s) Hemoglobin A1C % Less than 5.7% Above high normal [facility] HBA1C: Normal: Less than 5.7% Prediabetes: 5.7% to 6.4% Diabetes: 6.5% or higher HA1C % vs Estimated Average Glucose (eAG) % eAG % eAG 6% 126 mg/dL 10% 240 mg/dL 7% 154 mg/dL 11% 269 mg/dL 8% 183 mg/dL 12% 298 mg/dL 9% 212 mg/dL Reference: [place] [employer], 2017 ID Date Data Source [id number] 10/11/2020 01:21:00 PM EDT [facility] Name Value Range Interpretation Code Description Data Mireille rce(s) Supporting Document(s) Sodium 137 mmol/L 137-145 Normal (applies to non-numeric resul ts) [facility] Potassium 3.5-5.1 Normal (applies to non-numeric resul ts) [facility] Chloride 102 mmol/L 98-112 Normal (applies to non-numeric resul ts) [facility] Carbon Dioxide CO2 22.0-33.0 Normal (applies to non-numer ic results) [facility] Anion Gap 4.0-11.0 Normal (applies to non-numeric resul ts) [facility] BUN 16 mg/dL 9-20 Normal (applies to non-numeric resul ts) [facility] Creatinine 0.80-1.50 Normal (applies to non-numeric resul ts) [facility] GFR 66 mL/min >60 Normal (applies to non-numeric resul ts) [facility] Result based on MDRD formula. Glucose Level 194 mg/dL 74-99 Above high normal [facility] The reference range is only applicable w hen fasting. Calcium-Uncorrected 8.4-10.2 Normal (applies to non-nume nelson results) [facility] Corrected Calcium 8.4-10.2 Normal (applies to non-numeri c results) [facility] Bilirubin,Total 0.2-1.3 Normal (applies to non-numeric results) [facility] SGOT(AST) 42 U/L 17-59 Normal (applies to non-numeric resul ts) [facility] SGPT(ALT) 57 U/L 21-72 Normal (applies to non-numeric resul ts) [facility] Alkaline Phosphatase 89 U/L 38-126 Normal (applies to non-num gage results) [facility] can increase Alkaline Phosp le vels up to 2 times the normal adult value. Normal values for children and adolescents are 2 to 3 times the normal adult value. Total Protein 6.3-8.2 Normal (applies to non-numeric re sults) [facility] Albumin 3.5-5.0 Normal (applies to non-numeric resul ts) [facility] ID Date Data Source [id number] 08/14/2020 10:59:00 PM EDT [facility] Name Value Range Interpretation Code Description Data Mireille rce(s) Supporting Document(s) SARS-CoV-2 (COVID 19) NEGATIVE - SARS-CoV-2 (COVID19) [facility] This lab was ordered by [facility] a nd reported by [facility]. ID Date Data Source [id number] 07/09/2020 03:28:00 PM EDT [facility] Name Value Range Interpretation Code Description Data Mireille rce(s) Supporting Document(s) Hemoglobin A1C % Less than 5.7% Above high normal [facility] HBA1C: Normal: Less than 5.7% Prediabetes: 5.7% to 6.4% Diabetes: 6.5% or higher HA1C % vs Estimated Average Glucose (eAG) % eAG % eAG 6% 126 mg/dL 10% 240 mg/dL 7% 154 mg/dL 11% 269 mg/dL 8% 183 mg/dL 12% 298 mg/dL 9% 212 mg/dL Reference: [place] [employer], 2017 ID Date Data Source [id number] 07/09/2020 03:23:00 PM EDT [facility] Name Value Range Interpretation Code Description Data Mireille rce(s) Supporting Document(s) Sodium 136 mmol/L 137-145 Below low normal [facility] Potassium 3.5-5.1 Normal (applies to non-numeric resul ts) [facility] Chloride 101 mmol/L 98-112 Normal (applies to non-numeric resul ts) [facility] Carbon Dioxide CO2 22.0-33.0 Normal (applies to non-numer ic results) [facility] Anion Gap 4.0-11.0 Normal (applies to non-numeric resul ts) [facility] BUN 17 mg/dL 9-20 Normal (applies to non-numeric resul ts) [facility] Creatinine 0.80-1.50 Normal (applies to non-numeric resul ts) [facility] GFR 57 mL/min >60 Below low normal [facility] Result based on MDRD formula. Glucose Level 296 mg/dL 74-99 Above high normal [facility] The reference range is only applicable w hen fasting. Calcium-Uncorrected 8.4-10.2 Normal (applies to non-nume neslon results) [facility] Corrected Calcium 8.4-10.2 Normal (applies to non-numeri c results) [facility] ID Date Data Source [id number] 05/02/2020 02:06:00 AM EST [facility] Name Value Range Interpretation Code Description Data Mirielle rce(s) Supporting Document(s) SARS coronavirus 2 RNA [Presence] in Res piratory specimen by DAILY with probe detection POSITIVE [facility] This lab was ordered by [facility] a nd reported by [facility]. ID Date Data Source [id number] 04/29/2020 10:04:00 AM EST [facility] Name Value Range Interpretation Code Description Data Mireille rce(s) Supporting Document(s) SARS COVID ANTIGEN POSITIVE [facility] This lab was ordered by [facility] a nd reported by [facility]. ID Date Data Source [id number] COVID AG (Point of Care) 04/29/2020 12:00:00 AM EST eC W1 ([facility]) Name Value Range Interpretation Code Description Data Mireille rce(s) Supporting Document(s) POSITIVE NEGATIVE LYNNE COVID ANTIGEN eCW1 ([facility]) ID Date Data Source [id number] 04/12/2020 08:23:00 PM EST [facility] Name Value Range Interpretation Code Description Data Mireille rce(s) Supporting Document(s) SARS-CoV-2 (COVID 19) NEGATIVE - SARS-CoV-2 (COVID19) [facility] This lab was ordered by [facility] a nd reported by [facility]. ID Date Data Source [id number] 03/16/2020 05:11:00 AM EST [facility] Name Value Range Interpretation Code Description Data Mireille rce(s) Supporting Document(s) Hemoglobin A1C % Less than 5.7% Above high normal [facility] HBA1C: Normal: Less than 5.7% Prediabetes: 5.7% to 6.4% Diabetes: 6.5% or higher HA1C % vs Estimated Average Glucose (eAG) % eAG % eAG 6% 126 mg/dL 10% 240 mg/dL 7% 154 mg/dL 11% 269 mg/dL 8% 183 mg/dL 12% 298 mg/dL 9% 212 mg/dL Reference: [place] [employer], 2017 ID Date Data Source [id number] 02/28/2020 11:00:00 AM EST [facility] Name Value Range Interpretation Code Description Data Mireille rce(s) Supporting Document(s) [facility] 2 [facility] This lab was ordered by [facility] and reported by [facility]. ID Date Data Source [id number] 01/28/2020 04:53:00 PM EDT [facility] ([facility] Name Value Range Interpretation Code Description Data Mireille rce(s) Supporting Document(s) Glucose [Mass/volume] in Capillary blood by Glucometer 154 mg/dL 80-115 Above high normal [facility] ([facility] ID Date Data Source [id number] 01/28/2020 04:09:00 PM EDT [facility] ([facility] [...] An area of gangrenous changes is noted. Recruiting Scheduler sections are submitted in two after decalcification. -OA 01/29/20201303 Signed SALINA SAUNDERS MD 01/30/2020956 ID Date Data Source [id number] 01/28/2020 11:26:00 AM EDT [facility] ([facility] Name Value Range Interpretation Code Description Data Mireille rce(s) Supporting Document(s) Glucose [Mass/volume] in Capillary blood by Glucometer 91 mg/dL 80- 115 [facility] ([facility] ID Date Data Source [id number] 12/31/2019 11:17:00 AM EDT [facility] ([facility] ) Name Value Range Interpretation Code Description Data Mireille rce(s) Supporting Document(s) Glucose [Mass/volume] in Capillary blood by Glucometer 142 mg/dL 80-115 Above high normal [facility] ([facility]) ID Date Data Source [id number] [facility] Name Value Range Interpretation Code Description Data Mireille rce(s) Supporting Document(s) Glucose [Mass/volume] in Capillary blood by Glucometer 131 mg/dL 80-115 Above high normal [facility] ([facility]) ID Date Data Source [id number] [facility]/17[facility] Name Value Range Interpretation Code Description Data Mireille rce(s) Supporting Document(s) Glucose, Fasting 158 mg/dL 70-100 Above high normal [facility] ([facility]) Blood Urea Nitrogen 15 mg/dL 7-18 Normal (applies to non-nume nelson results) [facility] ([facility]) Creatinine For GFR 1.36 mg/dL 0.70-1.30 Above high normal [facility] ([facility]) Glomerular Filtration Rate 56.9 Normal (applies to n on-numeric results) [facility]) <content>Units are mL/min/1.73 m2</content>
<content></content>
<content>Chronic Kidney Disease Staging per NKF:</content>
<content></content>
<content>Stage I & II GFR >=60 Normal to Mildly Decreased</content>
<content>Stage III GFR 30- 59 Moderately Decreased</content>
<content>Stage IV GFR 15-29 Severely Decreased</content>
<content>Stage V GFR <15 Very Little GFR Left</content>
<content>ESRD GFR <15 on PLATE CUTTER</content>
<content></content> Sodium Level 139 meq/L 136-145 Normal (applies to non-numeric res ults) [facility] ([facility]) Chloride Level 105 meq/L 98-107 Normal (applies to non-numeric r esults) [facility] ([facility]) Carbon Dioxide Level 27 meq/L 21-32 Normal (applies to non-num gage results) [facility]) Potassium Serum 4.6 meq/L 3.5-5.1 Normal (applies to non-numeric results) [facility] ([facility]) Calcium Level 9.3 mg/dL 8.8-10.2 Normal (applies to non-numeric re sults) [facility]) Anion Gap 7 meq/L 8-16 Below low normal [facility] ( [facility]) ID Date Data Source [id number] 12/17/2019 10:05:00 AM EDT [facility]) Name Value Range Interpretation Code Description Data Mireille rce(s) Supporting Document(s) White Blood Count 6.8 10 4.0-10.0 Normal (applies to non-numeri c results) [facility] ([facility]) Red Blood Count 3.47 10 4.30-6.10 Below low normal [facility] ([facility]) Hemoglobin 11.2 g/dL 13.5-17.5 Below low normal [facility]) Hematocrit 32.8 % 42.0-52.0 Below low normal [facility] ( [facility]) Mean Corpuscular Volume 94.5 fl 80.0-96.0 Normal ( applies to non-numeric results) [facility]) Mean Corpuscular Hemoglobin 32.3 pg 27.0-33.0 Norm al (applies to non-numeric results) [facility]) Mean Corpuscular HGB Conc 34.1 g/dL 32.0-36.5 Normal (applies to non-numeric results) [facility]) Red Cell Distribution Width 12.1 % 11.5-14.5 Norm al (applies to non-numeric results) [facility]) Nucleated Red Blood Cell % 0.0 % 0-0 Normal (applies to n on-numeric results) [facility]) Platelet Count, Automated 214 10 150-450 Normal (applies to non-numeric results) [facility] ([facility] ) Procedure Social History Code Duration Value Status Description Data Source(s ) Smoking 01/21/2021 12:00:00 AM EDT Former Smoker completed Former Smoker eCW1 ([facility]) Smoking 01/21/2021 12:00:00 AM EDT Former Smoker completed Former Smoker eCW1 ([facility]) Smoking 12/23/2020 12:00:00 AM EDT Former Smoker completed Former Smoker eCW1 ([facility]) Smoking 12/23/2020 12:00:00 AM EDT Former Smoker completed Former Smoker eCW1 ([facility]) Smoking 12/23/2020 12:00:00 AM EDT Former Smoker completed Former Smoker eCW1 ([facility]) Smoking 12/16/2020 12:00:00 AM EDT Former Smoker completed Former Smoker eCW1 ([facility]) Smoking 12/16/2020 12:00:00 AM EDT Former Smoker completed Former Smoker eCW1 ([facility]) Smoking 08/24/2020 12:00:00 AM EDT Former Smoker completed Former Smoker eCW1 ([facility]) Smoking 08/24/2020 12:00:00 AM EDT Former Smoker completed Former Smoker eCW1 ([facility]) Smoking 08/24/2020 12:00:00 AM EDT Former Smoker completed Former Smoker eCW1 ([facility]) Smoking 08/24/2020 12:00:00 AM EDT Former Smoker completed Former Smoker eCW1 ([facility]) Smoking 08/24/2020 12:00:00 AM EDT Former Smoker completed Former Smoker eCW1 ([facility]) Smoking 07/27/2020 12:00:00 AM EDT Former Smoker completed Former Smoker eCW1 ([facility]) Smoking 07/27/2020 12:00:00 AM EDT Former Smoker completed Former Smoker eCW1 ([facility]) Smoking 07/27/2020 12:00:00 AM EDT Former Smoker completed Former Smoker eCW1 ([facility]) Smoking 07/27/2020 12:00:00 AM EDT Former Smoker completed Former Smoker eCW1 ([facility]) Smoking 07/27/2020 12:00:00 AM EDT Former Smoker completed Former Smoker eCW1 ([facility]) Smoking 07/06/2020 12:00:00 AM EDT Former Smoker completed Former Smoker eCW1 ([facility]) Smoking 07/06/2020 12:00:00 AM EDT Former Smoker completed Former Smoker eCW1 ([facility]) Smoking 07/06/2020 12:00:00 AM EDT Former Smoker completed Former Smoker eCW1 ([facility]) Smoking 05/28/2020 12:00:00 AM EST Non Smoker completed Non Smoke r [facility] ([facility] ) Smoking 05/13/2020 12:00:00 AM EST Former Smoker completed Former Smoker eCW1 ([facility]) Smoking 05/13/2020 12:00:00 AM EST Former Smoker completed Former Smoker eCW1 ([facility]) Smoking 05/13/2020 12:00:00 AM EST Former Smoker completed Former Smoker eCW1 ([facility]) Smoking 05/13/2020 12:00:00 AM EST Former Smoker completed Former Smoker eCW1 ([facility]) Smoking 05/05/2020 12:00:00 AM EST Former Smoker completed Former Smoker eCW1 ([facility]) Smoking 05/05/2020 12:00:00 AM EST Former Smoker completed Former Smoker eCW1 ([facility]) Smoking 05/05/2020 12:00:00 AM EST Former Smoker completed Former Smoker eCW1 ([facility]) Smoking 05/05/2020 12:00:00 AM EST Former Smoker completed Former Smoker eCW1 ([facility]) Smoking 05/05/2020 12:00:00 AM EST Former Smoker completed Former Smoker eCW1 ([facility]) Smoking 05/05/2020 12:00:00 AM EST Former Smoker completed Former Smoker eCW1 ([facility]) Smoking 05/05/2020 12:00:00 AM EST Former Smoker completed Former Smoker eCW1 ([facility]) Smoking 04/29/2020 12:00:00 AM EST Former Smoker completed Former Smoker eCW1 ([facility]) Smoking 04/06/2020 12:00:00 AM EST Former Smoker completed Former Smoker eCW1 ([facility]) Smoking 04/06/2020 12:00:00 AM EST Former Smoker completed Former Smoker eCW1 ([facility]) Smoking 04/06/2020 12:00:00 AM EST Former Smoker completed Former Smoker eCW1 ([facility]) Smoking 04/06/2020 12:00:00 AM EST Former Smoker completed Former Smoker eCW1 ([facility]) Smoking 04/06/2020 12:00:00 AM EST Former Smoker completed Former Smoker eCW1 ([facility]) Smoking 04/06/2020 12:00:00 AM EST Former Smoker completed Former Smoker eCW1 ([facility]) Smoking 04/06/2020 12:00:00 AM EST Former Smoker completed Former Smoker eCW1 ([facility]) Smoking 02/25/2020 12:00:00 AM EST Former Smoker completed Former Smoker eCW1 ([facility]) Smoking 02/25/2020 12:00:00 AM EST Former Smoker completed Former Smoker eCW1 ([facility]) Smoking 02/25/2020 12:00:00 AM EST Former Smoker completed Former Smoker eCW1 ([facility]) Smoking 02/25/2020 12:00:00 AM EST Former Smoker completed Former Smoker eCW1 ([facility]) Smoking 02/25/2020 12:00:00 AM EST Former Smoker completed Former Smoker eCW1 ([facility]) Smoking 02/25/2020 12:00:00 AM EST Former Smoker completed Former Smoker eCW1 ([facility]) Smoking 02/25/2020 12:00:00 AM EST Former Smoker completed Former Smoker eCW1 ([facility]) Smoking 02/24/2020 12:00:00 AM EST Former Smoker completed Former Smoker eCW1 ([facility]) Smoking 02/19/2020 12:00:00 AM EST Former Smoker completed Former Smoker eCW1 ([facility]) Smoking 02/19/2020 12:00:00 AM EST Former Smoker completed Former Smoker eCW1 ([facility]) Smoking 02/19/2020 12:00:00 AM EST Former Smoker completed Former Smoker eCW1 ([facility]) Smoking 02/09/2020 12:00:00 AM EST Former Smoker completed Former Smoker eCW1 ([facility]) Smoking 02/09/2020 12:00:00 AM EST Former Smoker completed Former Smoker eCW1 ([facility]) Smoking 01/19/2020 12:00:00 AM EDT Former Smoker completed Former Smoker eCW1 ([facility]) Smoking 01/19/2020 12:00:00 AM EDT Former Smoker completed Former Smoker eCW1 ([facility]) Smoking 01/19/2020 12:00:00 AM EDT Former Smoker completed Former Smoker eCW1 ([facility]) Vital Signs ID Date Data Source UNK Name Value Range Interpretation Code Description Data Source(s) Systolic blood pressure 109 mm[Hg] 109 mm[Hg] M [facility] ([facility]) Body temperature 98.8 [degF] 98.8 [degF] [facility] ([facility]) [place] body weight 160 [lb_av] 160 [lb_av] [facility] Body weight 74.390 kg 74.390 kg [facility] ([facility]) Heart rate 82 /min 82 /min [facility] ([facility]) Body height 69 [in_i] 69 [in_i] [facility] ([facility]) 5'9" Body weight 164.00 [lb_av] 164.00 [lb_av] [facility] ([facility]) Body mass index (BMI) [Ratio] 24.2 kg/m2 24.2 k g/m2 [facility] ([facility]) Body surface area Derived from formula 1.90 m2 1.90 m2 [facility] ([facility]) Diastolic blood pressure 65 mm[Hg] 65 mm[Hg] [facility] ([facility]) Body weight 154.4 [lb_av] 154.4 [lb_av] eCW1 ([facility]) Body height 69 [in_i] 69 [in_i] eCW1 ([facility]) Body mass index (BMI) [Ratio] 22.80 kg/m2 22.80 kg/m2 eCW1 ([facility]) Heart rate 78 /min 78 /min eCW1 ([facility]) Respiratory rate 18 /min 18 /min eCW1 ([facility]) Body temperature 97.6 [degF] 97.6 [degF] eCW1 ( [facility]) Systolic blood pressure 146 mm[Hg] 146 mm[Hg] e CW1 ([facility]) Diastolic blood pressure 66 mm[Hg] 66 mm[Hg] eCW1 ([facility]) Systolic blood pressure 138 mm[Hg] 138 mm[Hg] M [facility] ([facility]) Diastolic blood pressure 80 mm[Hg] 80 mm[Hg] [facility] ([facility]) Body temperature 97.9 [degF] 97.9 [degF] [facility] ([facility]) Body weight 152.00 [lb_av] 152.00 [lb_av] [facility] ([facility]) Body surface area Derived from formula 1.84 m2 1.84 m2 [facility] ([facility]) Body height 69 [in_i] 69 [in_i] [facility] ([facility]) 5'9" Body mass index (BMI) [Ratio] 22.4 kg/m2 22.4 k g/m2 [facility] ([facility]) [place] body weight 160 [lb_av] 160 [lb_av] [facility] ([facility]) Body weight 68.947 kg 68.947 kg [facility] ([facility]) Body weight 162.6 [lb_av] 162.6 [lb_av] eCW1 ([facility]) Body height 69 [in_i] 69 [in_i] eCW1 ([facility]) Body mass index (BMI) [Ratio] 24.01 kg/m2 24.01 kg/m2 eCW1 ([facility]) Heart rate 70 /min 70 /min eCW1 ([facility]) Respiratory rate 18 /min 18 /min eCW1 ([facility]) Body temperature 98.1 [degF] 98.1 [degF] eCW1 ( [facility]) Systolic blood pressure 112 mm[Hg] 112 mm[Hg] e CW1 ([facility]) Diastolic blood pressure 55 mm[Hg] 55 mm[Hg] eCW1 ([facility]) Heart rate 65 /min 65 /min MEDENT ([facility], ) Body mass index (BMI) [Ratio] 24.4 kg/m2 24.4 k g/m2 [facility] Systolic blood pressure 116 mm[Hg] 116 mm[Hg] M EDENT ([facility]) Diastolic blood pressure 71 mm[Hg] 71 mm[Hg] MEDENT ([facility]) Body height 69 [in_i] 69 [in_i] [facility] ([facility]) 5'9" Body weight 165.25 [lb_av] 165.25 [lb_av] MEDEN T ([facility]) [place] body weight 160 [lb_av] 160 [facility]_av[facility] Body weight 74.957 kg 74.957 kg [facility] ([facility]) Body surface area Derived from formula 1.91 m2 1.91 m2 [facility] ([facility]) Body weight 165.2 [lb_av] 165.2 [lb_av] eCW1 ([facility]) Heart rate 73 /min 73 /min eCW1 ([facility]) Body height 69 [in_i] 69 [in_i] eCW1 ([facility]) Respiratory rate 18 /min 18 /min eCW1 ([facility]) Body temperature 97.4 [degF] 97.4 [degF] eCW1 ( [facility]) Body mass index (BMI) [Ratio] 24.39 kg/m2 24.39 kg/m2 eCW1 ([facility]) Systolic blood pressure 106 mm[Hg] 106 mm[Hg] e CW1 ([facility]) Diastolic blood pressure 49 mm[Hg] 49 mm[Hg] eCW1 ([facility]) Body mass index (BMI) [Ratio] 24.2 kg/m2 24.2 k g/m2 MEDENT ([facility]) Body weight 164.00 [lb_av] 164.00 [lb_av] MEDEN T ([facility]) Systolic blood pressure 153 mm[Hg] 153 mm[Hg] M EDENT ([facility]) Diastolic blood pressure 76 mm[Hg] 76 mm[Hg] MEDENT ([facility]) Heart rate 67 /min 67 /min [facility] ([facility]) Body height 69 [in_i] 69 [in_i] MEDENT ([facility]) 5'9" [place] body weight 160 [lb_av] 160 [lb_av] MEDEN T ([facility]) Body weight 74.390 kg 74.390 kg [facility] ([facility]) Body surface area Derived from formula 1.90 m2 1.90 m2 [facility] ([facility]) Body height 69 [in_i] 69 [in_i] MEDENT ([facility]) 5'9" Body weight 74.390 kg 74.390 kg [facility] ([facility]) Systolic blood pressure 130 mm[Hg] 130 mm[Hg] M EDENT ([facility]) Diastolic blood pressure 68 mm[Hg] 68 mm[Hg] MEDENT ([facility]) Body weight 164.00 [lb_av] 164.00 [lb_av] MEDEN T ([facility]) stated Body mass index (BMI) [Ratio] 24.2 kg/m2 24.2 k g/m2 MEDENT ([facility]) [place] body weight 160 [lb_av] 160 [lb_av] MEDEN T ([facility], ) Body surface area Derived from formula 1.90 m2 1.90 m2 MEDENT ([facility]) Body weight 158 [lb_av] 158 [lb_av] eCW1 ([facility] Body height 69 [in_i] 69 [in_i] eCW1 ([facility]) Body mass index (BMI) [Ratio] 23.33 kg/m2 23.33 kg/m2 eCW1 ([facility]) Heart rate 60 /min 60 /min eCW1 ([facility]) Respiratory rate 18 /min 18 /min eCW1 ([facility]) Body temperature 97.9 [degF] 97.9 [degF] eCW1 ( [facility]) Systolic blood pressure 182 mm[Hg] 182 mm[Hg] e CW1 ([facility]) Diastolic blood pressure 73 mm[Hg] 73 mm[Hg] eCW1 ([facility]) Body height 69 [in_i] 69 [in_i] MEDENT ([facility], ) 5'9" Body weight 164.00 [lb_av] 164.00 [lb_av] MEDEN T ([facility]) Systolic blood pressure 159 mm[Hg] 159 mm[Hg] M EDENT ([facility], ) Body surface area Derived from formula 1.90 m2 1.90 m2 MEDENT ([facility], ) Diastolic blood pressure 77 mm[Hg] 77 mm[Hg] MEDENT ([facility]) Heart rate 66 /min 66 /min MEDENT ([facility], ) Body mass index (BMI) [Ratio] 24.2 kg/m2 24.2 k g/m2 [facility], ) [place] body weight 160 [lb_av] 160 [lb_av] MEDEN T ([facility], ) Body weight 74.390 kg 74.390 kg MEDENT ([facility], ) Body weight 164.00 [lb_av] 164.00 [lb_av] MEDEN T ([facility]) Body mass index (BMI) [Ratio] 24.2 kg/m2 24.2 k g/m2 MEDENT ([facility]) [place] body weight 160 [lb_av] 160 [lb_av] MEDEN T ([facility]) Body weight 74.390 kg 74.390 kg MED[facility] ([facility]) Body height 69 [in_i] 69 [in_i] MEDENT ([facility]) 5'9" Body surface area Derived from formula 1.90 m2 1.90 m2 [facility] ([facility]) Body weight 158.8 [lb_av] 158.8 [lb_av] eCW1 ([facility]) Body height 69 [in_i] 69 [in_i] eCW1 ([facility]) Body mass index (BMI) [Ratio] 23.45 kg/m2 23.45 kg/m2 eCW1 ([facility]) Heart rate 71 /min 71 /min eCW1 ([facility]) Respiratory rate 18 /min 18 /min eCW1 ([facility]) Body temperature 98.0 [degF] 98.0 [degF] eCW1 ( [facility]) Systolic blood pressure 157 mm[Hg] 157 mm[Hg] e CW1 ([facility]) Diastolic blood pressure 72 mm[Hg] 72 mm[Hg] eCW1 ([facility]) Diastolic blood pressure 63 mm[Hg] 63 mm[Hg] MEDENT ([facility]) Systolic blood pressure 115 mm[Hg] 115 mm[Hg] M EDENT ([facility]) Body mass index (BMI) [Ratio] 22.3 kg/m2 22.3 k g/m2 [facility] ([facility]) Heart rate 78 /min 78 /min [facility] ([facility]) Body height 69 [in_i] 69 [in_i] [facility] ([facility]) 5'9" Body weight 151.00 [lb_av] 151.00 [lb_av] MEDEN T ([facility]) [place] body weight 160 [lb_av] 160 [lb_av] MEDEN T ([facility]) Body weight 68.494 kg 68.494 kg [facility] ([facility]) Body surface area Derived from formula 1.83 m2 1.83 m2 [facility] ([facility]) Body weight 151.2 [lb_av] 151.2 [lb_av] eCW1 ([facility]) Body height 69 [in_i] 69 [in_i] eCW1 ([facility]) Body mass index (BMI) [Ratio] 22.33 kg/m2 22.33 kg/m2 eCW1 ([facility]) Heart rate 81 /min 81 /min eCW1 ([facility]) Respiratory rate 17 /min 17 /min eCW1 ([facility]) Body temperature 98.1 [degF] 98.1 [degF] eCW1 ( [facility]) Systolic blood pressure 114 mm[Hg] 114 mm[Hg] e CW1 ([facility]) Diastolic blood pressure 55 mm[Hg] 55 mm[Hg] eCW1 ([facility]) Systolic blood pressure 136 mm[Hg] 136 mm[Hg] M EDENT ([facility]) Diastolic blood pressure 78 mm[Hg] 78 mm[Hg] MEDENT ([facility]) Heart rate 69 /min 69 /min [facility]) Body height 69 [in_i] 69 [in_i] [facility] ([facility]) 5'9" Body weight 153.50 [lb_av] 153.50 [lb_av] MEDEN T ([facility]) Body mass index (BMI) [Ratio] 22.7 kg/m2 22.7 k g/m2 [facility] ([facility]) [place] body weight 160 [lb_av] 160 [lb_av] MEDEN T ([facility]) Body weight 69.628 kg 69.628 kg [facility] ([facility]) Body surface area Derived from formula 1.85 m2 1.85 m2 [facility] ([facility]) Diastolic blood pressure 70 mm[Hg] 70 mm[Hg] [facility]) Body weight 155.00 [lb_av] 155.00 [lb_av] MEDEN T ([facility]) Stated Body mass index (BMI) [Ratio] 22.9 kg/m2 22.9 k g/m2 [facility] ([facility]) [place] body weight 160 [lb_av] 160 [lb_av] MEDEN T ([facility]) Body weight 70.308 kg 70.308 kg [facility] ([facility]) Body surface area Derived from formula 1.85 m2 1.85 m2 [facility] ([facility]) Body height 69 [in_i] 69 [in_i] [facility] ([facility]) 5'9" Systolic blood pressure 150 mm[Hg] 150 [facility] Body weight 155 [lb_av] 155 [lb_av] eCW1 ([facility]) Body height 69 [in_i] 69 [in_i] eCW1 ([facility]) Body mass index (BMI) [Ratio] 22.89 kg/m2 22.89 kg/m2 W1 ([facility]) Heart rate 78 /min 78 /min eCW1 ([facility]) Respiratory rate 18 /min 18 /min eCW1 ([facility]) Body temperature 98.4 [degF] 98.4 [degF] eCW1 ( [facility]) Systolic blood pressure 109 mm[Hg] 109 mm[Hg] e CW1 ([facility]) Diastolic blood pressure 53 mm[Hg] 53 mm[Hg] eCW1 ([facility]) Systolic blood pressure 124 mm[Hg] 124 mm[facility]Hg[facility] Diastolic blood pressure 72 mm[Hg] 72 mm[Hg] [facility] ([facility]) Body height 69 [in_i] 69 [in_i] [facility]) 5'9" Body weight 145.00 [lb_av] 145.00 [lb_av] MEDEN T ([facility]) Body mass index (BMI) [Ratio] 21.4 kg/m2 21.4 k g/m2 [facility] ([facility]) [place] body weight 160 [lb_av] 160 [lb_av] MEDEN T ([facility]) Body weight 65.772 kg 65.772 kg [facility]) Body surface area Derived from formula 1.80 m2 1.80 m2 [facility] ([facility]) Body weight 155 [lb_av] 155 [lb_av] eCW1 ([facility]) Heart rate 89 /min 89 /min eCW1 ([facility]) Respiratory rate 20 /min 20 /min eCW1 ([facility]) Body mass index (BMI) [Ratio] 22.89 kg/m2 22.89 kg/m2 eCW1 ([facility]) Body height 69 [in_i] 69 [in_i] eCW1 ([facility]) Diastolic blood pressure 42 mm[Hg] 42 mm[Hg] eCW1 ([facility]) Body temperature 98.7 [degF] 98.7 [degF] eCW1 ( [facility]) Systolic blood pressure 91 mm[Hg] 91 mm[Hg] e CW1 ([facility]) Systolic blood pressure 123 mm[Hg] 123 mm[Hg] M EDENT ([facility]) Body height 69 [in_i] 69 [in_i] [facility] 5'9" Body weight 143.00 [lb_av] 143.00 [lb_av] MEDEN T ([facility]) stated Diastolic blood pressure 73 mm[Hg] 73 mm[Hg] [facility] ([facility]) Body mass index (BMI) [Ratio] 21.1 kg/m2 21.1 k g/m2 [facility] ([facility]) [place] body weight 160 [lb_av] 160 [lb_av] MEDEN T ([facility]) Body weight 64.865 kg 64.865 kg [facility] ([facility]) Body surface area Derived from formula 1.79 m2 1.79 m2 [facility] ([facility]) Body weight 155 [lb_av] 155 [lb_av] eCW1 ([facility]) Body temperature 98.3 [degF] 98.3 [degF] eCW1 ( [facility]) Systolic blood pressure 136 mm[Hg] 136 mm[Hg] e CW1 ([facility]) Diastolic blood pressure 65 mm[Hg] 65 mm[Hg] eCW1 ([facility]) Body height 69 [in_i] 69 [in_i] eCW1 ([facility]) Body mass index (BMI) [Ratio] 22.89 kg/m2 22.89 kg/m2 eCW1 ([facility]) Heart rate 74 /min 74 /min eCW1 ([facility]) Respiratory rate 18 /min 18 /min eCW1 ([facility]) Systolic blood pressure 110 mm[Hg] 110 mm[Hg] M EDENT ([facility]) Diastolic blood pressure 63 mm[Hg] 63 mm[Hg] MEDENT ([facility]) Body height 69 [in_i] 69 [in_i] [facility] ([facility]) 5'9" Body weight 143.00 [lb_av] 143.00 [lb_av] MEDEN T ([facility]) Body mass index (BMI) [Ratio] 21.1 kg/m2 21.1 k g/m2 [facility]) [place] body weight 160 [lb_av] 160 [lb_av] MEDEN T ([facility]) Body weight 64.865 kg 64.865 kg [facility] ([facility]) Body surface area Derived from formula 1.79 m2 1.79 m2 [facility] ([facility]) Heart rate 85 /min 85 /min MEDENT ([facility]) Body height 69 [in_i] 69 [in_i] MEDENT ([facility], ) 5'9" [place] body weight 160 [lb_av] 160 [lb_av] MEDEN T ([facility], ) Systolic blood pressure 126 mm[Hg] 126 mm[Hg] M EDENT ([facility], ) Diastolic blood pressure 61 mm[Hg] 61 mm[Hg] MEDENT ([facility], ) Body weight 164 [lb_av] 164 [lb_av] eCW1 ([facility]) Body height 69 [in_i] 69 [in_i] eCW1 ([facility]) Respiratory rate 20 /min 20 /min eCW1 ([facility]) Body mass index (BMI) [Ratio] 24.22 kg/m2 24.22 kg/m2 W1 ([facility]) Systolic blood pressure 188 mm[Hg] 188 mm[Hg] e CW1 ([facility]) Heart rate 90 /min 90 /min eCW1 ([facility]) Body temperature 97.7 [degF] 97.7 [degF] eCW1 ( [facility]) Diastolic blood pressure 78 mm[Hg] 78 mm[Hg] eCW1 ([facility]) Body weight 164 [lb_av] 164 [lb_av] eCW1 ([facility]) Body height 69 [in_i] 69 [in_i] eCW1 ([facility]) Body mass index (BMI) [Ratio] 24.22 kg/m2 24.22 kg/m2 eCW1 ([facility]) Heart rate 82 /min 82 /min eCW1 ([facility]) Respiratory rate 20 /min 20 /min eCW1 ([facility]) Body temperature 98.5 [degF] 98.5 [degF] eCW1 ( [facility]) Systolic blood pressure 107 mm[Hg] 107 mm[Hg] e CW1 ([facility]) Diastolic blood pressure 58 mm[Hg] 58 mm[Hg] eCW1 ([facility]) Respiratory rate 22 /min 22 /min eCW1 ([facility]) Body weight 168 [lb_av] 168 [lb_av] eCW1 ([facility]) Body weight kg eCW1 ([facility]) Body height 69 [in_i] 69 [in_i] eCW1 ([facility]) Body mass index (BMI) [Ratio] 24.81 kg/m2 24.81 kg/m2 eCW1 ([facility]) Body temperature 98.2 [degF] 98.2 [degF] eCW1 ( [facility]) Heart rate 88 /min 88 /min eCW1 ([facility]) Systolic blood pressure 188 mm[Hg] 188 mm[Hg] e CW1 ([facility]) Diastolic blood pressure mm[Hg] eCW1 ([facility]) Body height 69 [in_i] 69 [in_i] MEDENT ([facility] 5'9" Body weight 168.00 [lb_av] 168.00 [lb_av] MEDEN T ([facility] Systolic blood pressure 107 mm[Hg] 107 mm[Hg] M EDENT ([facility] Diastolic blood pressure 69 mm[Hg] 69 mm[Hg] MEDENT ([facility] Heart rate 77 /min 77 /min MED[facility] ([facility] Body mass index (BMI) [Ratio] 24.8 kg/m2 24.8 k g/m2 MED[facility] ([facility] Diastolic blood pressure 70 mm[Hg] 70 mm[Hg] MEDENT ([facility], ) Body height 69 [in_i] 69 [in_i] MEDENT ([facility], ) 5'9" Body weight 168.25 [lb_av] 168.25 [lb_av] MEDEN T ([facility]) [place] body weight 160 [lb_av] 160 [lb_av] MEDEN T ([facility]) Body weight 76.318 kg 76.318 kg [facility] ([facility]) Systolic blood pressure 128 mm[Hg] 128 [facility] Body surface area Derived from formula 1.92 m2 1.92 m2 [facility] ([facility]) Body mass index (BMI) [Ratio] 24.8 kg/m2 24.8 k g/m2 [facility] ([facility]) Body weight 168 [lb_av] 168 [lb_av] eCW1 ([facility]) Body weight kg eCW1 ([facility]) Body height 69 [in_i] 69 [in_i] eCW1 ([facility]) Body mass index (BMI) [Ratio] 24.81 kg/m2 24.81 kg/m2 eCW1 ([facility]) Systolic blood pressure 107 mm[Hg] 107 mm[Hg] e CW1 ([facility]) Heart rate 77 /min 77 /min eCW1 ([facility]) Diastolic blood pressure 69 mm[Hg] 69 mm[Hg] eCW1 ([facility]) Respiratory rate 18 /min 18 /min eCW1 ([facility]) Body temperature 94.6 [degF] 94.6 [degF] eCW1 ( [facility]) Body weight 168 [lb_av] 168 [lb_av] eCW1 ([facility]) Body weight kg eCW1 ([facility]) Body height 69 [in_i] 69 [in_i] eCW1 ([facility]) Body mass index (BMI) [Ratio] 24.81 kg/m2 24.81 kg/m2 W1 ([facility]) Diastolic blood pressure 70 mm[Hg] 70 mm[Hg] [facility] ([facility]) Systolic blood pressure 124 mm[Hg] 124 [facility]Hg[facility] Body height 69 [in_i] 69 [in_i] [facility] ([facility]) 5'9" Body weight 174.00 [lb_av] 174.00 [lb_av] [facility] Body mass index (BMI) [Ratio] 25.7 kg/m2 25.7 k g/m2 [facility] ([facility]) [place] body weight 160 [lb_av] 160 [lb_av] [facility] Body weight 78.926 kg 78.926 kg [facility] ([facility]) Patient Treatment Plan of Care Planned Activity Planned Date Details Description Data Source (s) Bisacodyl 10 MG Rectal Suppository 12/14/2020 12:00:00 AM EDT eCW1 ([facility]) Docusate Sodium 100 MG Oral Capsule [Colace] 12/14/2020 12:00:00 AM EDT eCW1 ([facility]) Ketoconazole 20 MG/ML Topical Cream 09/16/2020 12:00:00 AM EDT eCW1 ([facility]) Ketoconazole 20 MG/ML Topical Cream 09/16/2020 12:00:00 AM EDT eCW1 ([facility]) Ketoconazole 20 MG/ML Topical Cream 09/16/2020 12:00:00 AM EDT eCW1 ([facility]) Ketoconazole 20 MG/ML Topical Cream 09/16/2020 12:00:00 AM EDT eCW1 ([facility]) Prednisone 1 MG Oral Tablet 07/27/2020 12:00:00 AM EDT eCW1 ([facility]) Prednisone 1 MG Oral Tablet 07/27/2020 12:00:00 AM EDT eCW1 ([facility]) Prednisone 1 MG Oral Tablet 07/27/2020 12:00:00 AM EDT eCW1 ([facility]) Prednisone 1 MG Oral Tablet 07/27/2020 12:00:00 AM EDT eCW1 ([facility]) Prednisone 1 MG Oral Tablet 07/27/2020 12:00:00 AM EDT eCW1 ([facility]) aripiprazole 5 MG Oral Tablet 07/06/2020 12:00:00 AM EDT eCW1 ([facility]) aripiprazole 5 MG Oral Tablet 07/06/2020 12:00:00 AM EDT eCW1 ([facility]) aripiprazole 5 MG Oral Tablet 07/06/2020 12:00:00 AM EDT eCW1 ([facility]) aripiprazole 5 MG Oral Tablet 07/06/2020 12:00:00 AM EDT eCW1 ([facility]) aripiprazole 5 MG Oral Tablet 07/06/2020 12:00:00 AM EDT eCW1 ([facility]) aripiprazole 5 MG Oral Tablet 07/06/2020 12:00:00 AM EDT eCW1 ([facility]) aripiprazole 5 MG Oral Tablet 07/06/2020 12:00:00 AM EDT eCW1 ([facility]) aripiprazole 5 MG Oral Tablet 07/06/2020 12:00:00 AM EDT eCW1 ([facility]) aripiprazole 5 MG Oral Tablet 07/06/2020 12:00:00 AM EDT eCW1 ([facility]) aripiprazole 5 MG Oral Tablet 07/06/2020 12:00:00 AM EDT eCW1 ([facility]) aripiprazole 5 MG Oral Tablet 07/06/2020 12:00:00 AM EDT eCW1 ([facility]) aripiprazole 5 MG Oral Tablet 07/06/2020 12:00:00 AM EDT eCW1 ([facility]) aripiprazole 5 MG Oral Tablet 07/06/2020 12:00:00 AM EDT eCW1 ([facility]) Misc. Devices - 03/11/2020 12:00:00 AM EST eCW1 ([facility]) Misc. Devices - 03/11/2020 12:00:00 AM EST eCW1 ([facility]) Misc. Devices - 03/11/2020 12:00:00 AM EST eCW1 ([facility]) Misc. Devices - 03/11/2020 12:00:00 AM EST eCW1 ([facility]) Misc. Devices - 03/11/2020 12:00:00 AM EST eCW1 ([facility]) Wheelchair - 02/24/2020 12:00:00 AM EST e CW1 ([facility]) Wheelchair - 02/24/2020 12:00:00 AM EST e CW1 ([facility]) Wheelchair - 02/24/2020 12:00:00 AM EST e CW1 ([facility]) Wheelchair - 02/24/2020 12:00:00 AM EST e CW1 ([facility]) Wheelchair - 02/24/2020 12:00:00 AM EST e CW1 ([facility]) Wheelchair - 02/24/2020 12:00:00 AM EST e CW1 ([facility]) Wheelchair - 02/24/2020 12:00:00 AM EST e CW1 ([facility]) Wheelchair - 02/24/2020 12:00:00 AM EST e CW1 ([facility])
== END 2021-02-10 18:50 | disposition home or self-care (01) ==
LOC: EDBD 15:33 → M ED 15:33
DX: E11.649 Type 2 diabetes mellitus with hypoglycemia without coma (principal); N18.9 Chronic kidney disease, unspecified; Z87.891 Personal history of nicotine dependence; Z79.899 Other long term (current) drug therapy

== ENCOUNTER 2021-02-11 18:21 | Observation (INO) | payer MEDICARE, MEDICAID ==
[~2021-02-11] VITALS: Ht 165.1 cm; Wt 75.0 kg
--- OUTSIDE RECORDS SUMMARY | 2021-02-11 18:28 | CCD ---
Author Author [facility] Organization [facility] Address Unknown Phone Unavailable Care Team Providers [facility] Name Role Phone Alayna Simpson Unavailable PROBLEMS Type Condition ICD9-CM Code NQP58-[id number] Code Onset Dates Condition S tatus W/U Status Risk SNOMED Code Notes Problem Chronic obstructive pulmonary disease, unspecified COPD ty pe J44.9 Active confirmed 43200328 Problem Essential hypertension I10 Active confirmed 30958953 Problem Temporal arteritis M31.6 Active confirmed 4 48837696 Problem 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 L97.519 Active confirmed Problem Type 1 diabetes mellitus with foot ulcer E10.621 Active confirmed 591066202781846 Problem Adrenal insufficiency E27.40 Active confirmed 449831264 Problem Anemia of chronic disease D63.8 Active confirmed 487248791 Problem History of left below knee amputation Z89.512 Ac tive confirmed 888420508 Problem Cataract of both eyes, unspecified cataract type H 26.9 Active confirmed 25330203 Problem Chronic gastritis without bleeding, unspecified gastri tis type K29.50 Active confirmed 55319986 Problem PVD (peripheral vascular disease) I73.9 Active confirmed 664452216 Problem 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 9 Active confirmed 8943107947384909 Problem Pancytopenia D61.818 Active confirmed 279739 005 Problem Autonomic instability G90.9 Active confirmed 37455754 Problem Osteomyelitis of other site, unspecified type M86. 9 Active confirmed 98349642 Problem Type 1 diabetes mellitus with complication E10.8 Active confirmed 77126304 Problem Bipolar 1 disorder F31.9 Active confirmed 3 88480628 Problem Amputation below knee S88.119A Active confirmed 172356053 Problem Acquired absence of left leg below knee Z89.512 Active confirmed 412426888692039 Problem Acquired absence of right leg below knee Z89.511 Active confirmed 504847201 Problem Below-knee amputation of right lower extremity S88 .111A Active confirmed 944056454 ALLERGIES No Known Allergies ENCOUNTERS from 1960 to 2021-02-08 Encounter Location Date Provider Diagnosis [address] [phone] [place] [address] Jan, Alayna Simpson IMMUNIZATIONS Vaccine Route Administration Date [...] School Language: Question Answer Notes Languages spoken: Wallisian Confucianism: Question Answer Notes Confucianism 08 Roman Catholic Alcohol Screening: Question Answer Notes Did you [...] Notes Start Da te End Date Status Gabapentin 300 MG 1 cap Orally bid for 90 day(s) Active Ketoconazole 2 % 1 application to affected ar ea of face Externally Once a day for 14 days Aug, Not-Taking Protonix 40 MG 1 tablet Orally bid changed to BID July, Not-Taking Finasteride 5 MG 1 tablet Orally Once a day for 90 days Active Latanoprost 0.005 % 1 drop into affected eye in the evening Ophthalmic left eye Once a day July, Not-Taking Pantoprazole Sodium 40 MG 1 tablet Orally bid for 30 Days Not-Taking Glucagon (rDNA) 1 MG as directed Injection Active Bisacodyl 10 MG 1 suppository as needed Rectal Once a day for 1 day(s) Dec, Not-Taking ARIPiprazole 5 MG 1 tablet Orally Once a day for 90 days 0 6 Jul, 2020 Active Lisinopril 5 MG 1 tablet Orally Once a day for 30 day(s) Active Pantoprazole Sodium 40 MG 1 tablet Orally Once a day for 30 day(s) Active NovoLOG 100 UNIT/ML as directed Subcutaneous Ins ulin pump, pump up to 100 units daily sliding scale July, Not-Taking Aspirin Adult Low Dose 81 MG 1 tablet Orally Once a day Active amLODIPine Besylate 5 MG 1 tablet Orally Once a day for 30 day(s ) Jan, Active CeleXA 40 MG 1 tab Orally Once a day Apr, Not-Taking Colace 100 MG 1 capsule as needed Orally Once a day for 30 day (s) Dec, Not-Taking Brimonidine Tartrate 0.1 % 1 drop into affected eye Ophthalmic ever y 8 hrs Active Atorvastatin Calcium 40MG 1 tablet Orally Once a day for 90 day(s) Active predniSONE 1 MG 3tablets with 5 mg tab for total of 9mg Orally O nce a day Jul, Active predniSONE 5 MG 1 tablet with 41 mg tablets for a total of 9 mg Orally Once a day July, Active Linezolid 600 MG 1 tablet Orally every 12 hrs for 10 day(s) Not-Taking Ferrous Sulfate 325 (65 Fe) MG 1 tablet Orally weekly for 90 day (s) once a week Active Clopidogrel Bisulfate 75 MG 1 tablet Orally Once a day for 90 day(s) Active PROCEDURES No Information RESULTS No Results REASON FOR VISIT Amlodipine Refill MEDICAL (GENERAL) HISTORY Type Description Date Medical History temporal arteritis Medical History Psoriasis Medical History DVT 10/2016 Medical History bipolar Medical History Adrenal Insufficiency Medical History type 1 diabetes, complicated by diabetic retinopathy, diabetic neuropathy Medical History Mengioma seen 2016, not on repeat image 2018 Medical History [...] History right leg amputation 03/04/2020 Hospitalization History [facility] 10/2016 Hospitalization History hypoglycemia 12/02/2016-12/12/19 17 Hospitalization History autonomic instability 04/02/201707/2017 Hospitalization History hypergycemia 08/04/2019- 0 Hospitalization History leg amputation 03/04/2020 Hospitalization History [facility] 05/04/2020- 1 Hospitalization History [facility] 08/15/2020 Hospitalization History amputation site infection 08/04- 021 Hospitalization History Low Blood Sugar 12/19/2020 Goals Section No Information Health Concerns No Information MEDICAL EQUIPMENT No Information MENTAL STATUS No Information FUNCTIONAL STATUS No Information ASSESSMENTS No Information PLAN OF TREATMENT Medication Medication Name Sig Start Date Stop Date amLODIPine Besylate 5 MG 1 tablet Orally Once a day for 30 day(s ) Jan, Lisinopril 5 MG 1 tablet Orally Once a day for 30 day(s) Next Appt Details Provider Name:Cecilio Ernandez, 2021-02-01 2 10:00:00 AM, [address] [facility], , [place], [address], Provider Name:Alayna Simpson, 2021-02-22 02:30:00 PM, [address] [facility], , [place], [address], Provider Name:Inocente Ledesma, 01:00:00 PM, [address], , [place], [address], Insurance Providers Payer Name Payer Address Payer Phone Insured Name Patient Relati onship to Insured Coverage Start Date Coverage End Date MEDICAID [employer] [address] [facility] [id number] [place] self MEDICARE COMPLETE [employer] [address] [address] [facility] [address] [place] G[place]IA self
--- OUTSIDE RECORDS SUMMARY | 2021-02-11 18:30 | CCD ---
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 Role Phone DIDIER KEVIN MD Unavailable [...] Malagon Unavailable Unavailable WojciechJarvis Manuel Unavailable Unavailable WarwickJarvis Manuel Unavailable Unavailable WojciechJarvis Manuel Unavailable Unavailable WarwickJarvis Manuel Unavailable Unavailable [place]wick, Jarvis Manuel Unavailable Unavailable WarwickJarvis Manuelcabrera ZURITA Unavailable Unavailable WarwickJarvis Manuel Unavailable Unavailable WarwickJarvis Manuel Unavailable Unavailable WojciechJarvis Manuelcabrera ZURITA Unavailable Unavailable WarwickJarvis Manuelcabrera ZURITA Unavailable Unavailable WarwickJarvis Manuel Unavailable Unavailable WojciechJarvis Manuelcabrera ZURITA Unavailable Unavailable WarwickJarvis Manuelcabrera ZURITA Unavailable Unavailable WojciechJarvis Manuel Unavailable Unavailable WarwickJarvis Manuel Unavailable Unavailable WarwickJarvis Manuel Unavailable Unavailable WarwickJarvis Manuel Unavailable Unavailable WarwickJarvis Manuelcabrera ZURITA Unavailable Unavailable WarwickJarvis Manuelcabrera ZURITA Unavailable Unavailable WarwickJarvis Manuelcabrera ZURITA Unavailable Unavailable WojciechJarvis Manuel Unavailable Unavailable WarwickJarvis Manuel MD Unavailable Unavailable WarwickJarvis Manuel MD Unavailable Unavailable WojciechJarvis Manuel Unavailable Unavailable WojciechJarvis Manuel MD Unavailable Unavailable WarwickJarvis Manuel Unavailable Unavailable WarwickJarvis Manuel MD Unavailable Unavailable WarwickJarvis Manuel MD Unavailable Unavailable WojciechJarvis Manuel Unavailable Unavailable WarwickJarvis Manuel MD Unavailable Unavailable WojciechJarvis Manuel MD Unavailable Unavailable WarwickJarvis Manuel MD Unavailable Unavailable WarwickJarvis Manuel Unavailable Unavailable WarwickJarvis Manuel MD Unavailable Unavailable WarwickJarvis Manuel Unavailable Unavailable WarwickJarvis Manuel Unavailable Unavailable WojciechJarvis Manuel MD Unavailable Unavailable Wojciech, L Manuel MD Unavailable Unavailable Wojciech, L Manuel MD Unavailable Unavailable [place], L Manuel MD Unavailable Unavailable [place], L Manuel MD Unavailable Unavailable [place], L Manuel MD Unavailable Unavailable [place], L Manuel MD Unavailable Unavailable [place], L Manuel MD Unavailable Unavailable Wojciech, L Manuel MD Unavailable Unavailable [place], L Manuel MD Unavailable Unavailable Wojciech, L Manuel MD Unavailable Unavailable [place], L Manuel MD Unavailable Unavailable Dumont, L [...] RPA Unavailable Unavailable Ama Malagon PA Unavailable [phone] Ama Malagon Unavailable [phone] Ama Malagon PA Unavailable [phone] Ama Malagon PA Unavailable [phone] Ama Malagon Unavailable [phone] Ama Malagon Unavailable [phone] Ama Malagon Unavailable [phone] Ama Malagon Unavailable [phone] Ama Malagon Unavailable [phone] Ama Malagon Unavailable [phone] Ama Malagon Unavailable [phone] Ama Malagon Unavailable [phone] Ama Malagon Unavailable [phone] Re-disclosure Warning The records that you are [...] by Article 27-F of the [facility] Public Health law. If you continue you may have access to information: Regarding HIV / AIDS; Provided by facilities licensed or operated by the [facility] Office of Mental Health; or Provided by the [facility] Office for People With Developmental Disabilities. If such information is present, then the following [facility] mandated warning applies: This information has [...] law may result in a fine or longterm sentence or both. A general authorization for the release of medical or other information is NOT sufficient authorization for further disc losure. Family History Family Member Name Family Member Gender Family Member Status Date o f Status Description Data Source(s) Unknown Unknown Problem MEDENT ([facility]) father Encounters Encounter Providers Location Date Indications Data Source(s ) Unknown [address] [facility] [address] 01/27/2021 12:00:00 AM EDT eCW1 ([facility]) Outpatient Attender: Alex Kuhn MD CPSCAORT-CPSCAEND 01/24 12:59:00 PM EDT - 01/24/2021 01:00:00 PM EDT E10.65 [facility] E10.65 Patient discharged. Outpatient [address] [facility] [address] 01/21/2021 12:00:00 AM EDT eCW1 ([facility]) Unknown [address] [facility] [address] 01/07/2021 12:00:00 AM EDT eCW1 ([facility]) Office Visit Attender: KAREN Mcnair/Анна/Indra/Re indl 01/06/2021 11:45:00 AM EDT MEDENT ([facility]) Unknown [address] [facility] [address] 12/31/2020 12:00:00 AM EDT eCW1 ([facility]) (TCM) Transition of Care Visit [address] [place] [address] 12/23/2020 12:00:00 AM EDT eCW1 ([facility]) [place] [address] [facility] [address] 12/22/2020 12:00:00 AM EDT eCW1 ([facility]) Office Visit Attender: KAREN Mcnair/Анна/Indra/Re indl 12/17/2020 01:00:00 PM EDT MEDENT ([facility]) [place] [address] [facility] [address] 12/16/2020 12:00:00 AM EDT eCW1 ([facility]) Unknown [address] [facility] [address] 12/14/2020 12:00:00 AM EDT eCW1 ([facility]ending sale to [facility]) Outpatient Attender: Manuel Mcnair/Анна/Indra/ Reindl 11/11/2020 08:30:00 AM EDT MEDENT ([facility]) Outpatient Attender: MATT Mcnair/Анна/Indra/Reincailin 11/01/2020 02:30:00 PM EDT MEDENT ([facility]) Unknown [address] [facility] [address] 10/20/2020 12:00:00 AM EDT eCW1 ([facility]ending sale to [facility]) Outpatient Attender: Jose GLEASONttender: Maurisio AVENDAÑO CPSCAORT-CPSCAEND 10/11/2020 10:38:00 AM EDT - 10/11/2020 10:39:00 AM ED T E10.65 [facility] E10.65 Patient discharged. Unknown [address] [facility] [address] 09/16/2020 12:00:00 AM EDT eCW1 ([facility] to [facility]) Unknown [address] [facility] [address] 09/16/2020 12:00:00 AM EDT eCW1 ([facility]ending [facility] to [facility]) Office Visit, Est Pt., Level 3 FC [address] [place] [address] 08/24/2020 12:00:00 AM EDT eCW1 ([facility]) Unknown [address] [facility] [address] 08/17/2020 12:00:00 AM EDT eCW1 ([facility] to [facility]) Unknown [address] [facility] [address] 08/17/2020 12:00:00 AM EDT eCW1 ([facility] to [facility]) Outpatient Attender: Kathy Mcnair/Анна/Indra/ Reindl 08/12/2020 11:00:00 AM EDT MED[facility] ([facility]) [place] [address] [facility] [address] 08/05/2020 12:00:00 AM EDT eCW1 ([facility]) Outpatient [address] [facility] [address] 07/27/2020 12:00:00 AM EDT eCW1 ([facility]) [place] [address] [facility] [address] 07/27/2020 12:00:00 AM EDT eCW1 ([facility]) Outpatient Attender: Alex Kuhn MD CPSCAORT-CPSCAEND 07/09 01:20:00 PM EDT - 07/09/2020 01:21:00 PM EDT E10.65 [facility] E10.65 Patient discharged. [place] [address] [facility] [address] 07/09/2020 12:00:00 AM EDT eCW1 [facility] Outpatient Attender: Kathy Mcnair/Анна/Indra/ Talon 07/08/2020 11:45:00 AM EDT MEDENT ([facility]) Outpatient [address] [facility] [address] 07/06/2020 12:00:00 AM EDT eCW1 [facility]) Unknown [address] [facility] [address] 07/02/2020 12:00:00 AM EDT eCW1 ([facility]) Unknown [address] [facility] [address] 06/24/2020 12:00:00 AM EDT eCW1 [facility]) Unknown [address] [facility] [address] 06/09/2020 12:00:00 AM EST eCW1 [facility]) Outpatient Attender: Kathy Mcnair/Анна/Indra/ Reindl 06/07/2020 12:00:00 PM EST MEDENT ([facility]) Office Visit Attender: Florencia Mcnair/[place]/Indra/R eindl 05/27/2020 09:30:00 AM EST MEDENT ([facility]) Unknown [address] [facility] [address] 05/20/2020 12:00:00 AM EST eCW1 ([facility]) (TCM) Transition of Care Visit [address] [place] [address] 05/13/2020 12:00:00 AM EST eCW1 ([facility]) Office Visit Attender: Florencia Mcnair/Анна/Indra/R eindl 05/12/2020 01:00:00 PM EST MEDENT ([facility]) Unknown [address] [facility] [address] 05/10/2020 12:00:00 AM EST eCW1 ([facility]) Unknown [address] [facility] [address] 05/10/2020 12:00:00 AM EST eCW1 ([facility]) Unknown [address] [facility] [address] 05/05/2020 12:00:00 AM EST eCW1 ([facility]) TeleMedicine Phone E/M by Phys 11-20 Min [address] [place] [address] 05/05/2020 12:00:00 AM EST eCW1 ([facility]) Unknown [address] [facility] [address] 05/05/2020 12:00:00 AM EST eCW1 ([facility]) Unknown [address] [facility] [address] 04/30/2020 12:00:00 AM EST eCW1 ([facility]) (TCM) Transition of Care Visit [address] [place] [address] 04/29/2020 12:00:00 AM EST [facility]CW1 ([facility]) Unknown [address] [facility] [address] 04/29/2020 12:00:00 AM EST eCW1 ([facility]) Unknown [address] [facility] [place] [address] 04/28/2020 12:00:00 AM EST eCW1 ([facility]) Unknown [address] [facility] [address] 04/26/2020 12:00:00 AM EST eCW1 ([facility]) Unknown [address] [facility] [place] [address] 04/23/2020 12:00:00 AM EST eCW1 ([facility]) Unknown [address] [facility] [place] [address] 04/22/2020 12:00:00 AM EST eCW1 ([facility]) Unknown [address] [facility] [address] 04/21/2020 12:00:00 AM EST eCW1 ([facility]) Office Visit Attender: Florencia Mcnair/Анна/Indra/R eindl 04/12/2020 10:45:00 AM EST MEDENT ([facility]) Outpatient [address] [facility] [address] 04/06/2020 12:00:00 AM EST eCW1 ([facility]) Office Visit Attender: Florencia Mcnair/Анна/Indra/R eindl 04/05/2020 08:15:00 AM EST [facility] ([facility]) Unknown [address] [facility] [address] 03/31/2020 12:00:00 AM EST eCW1 ([facility]) Unknown [address] [facility] [place] [address] 03/31/2020 12:00:00 AM EST eCW1 ([facility]) Unknown [address] [facility] [address] 03/29/2020 12:00:00 AM EST eCW1 ([facility]) Unknown [address] [facility] [address] 03/24/2020 12:00:00 AM EST eCW1 ([facility]ending [facility] to [facility]) Unknown [address] [facility] [address] 03/10/2020 12:00:00 AM EST eCW1 ([facility]) Outpatient Attender: Alex Kuhn MD CPSCAORT-CPSCAEND 03/02 02:32:00 PM EST - 03/02/2020 02:33:00 PM EST E10.65 [facility] E10.65 Patient discharged. Unknown [address] [place] [address] 03/01/2020 12:00:00 AM EST eCW1 ([facility]) Outpatient Attender: Kathy Mcnair/Анна/Indra/ Talon 02/23/2020 12:30:00 PM EST MEDENT ([facility]) ([id number]) For Template Wright [address] [place] [address] 02/23/2020 12:00:00 AM EST eCW1 ([facility]) Unknown [address] [facility] [address] 02/20/2020 12:00:00 AM EST eCW1 ([facility]) Office Visit, Est Pt., Level 2 FC [address] [place] [address] 02/19/2020 12:00:00 AM EST eCW1 ([facility]) Unknown [address] [place] [address] 02/19/2020 12:00:00 AM EST eCW1 ([facility]) Office Visit Attender: MOOSE CHAPA [facility] Office 01/31 12:00:00 PM EST MEDENT ([facility] Unknown [address] [facility] [address] 02/18/2020 12:00:00 AM EST eCW1 ([facility]ending sale to [facility]) Unknown [address] [facility] [address] 02/10/2020 12:00:00 AM EST eCW1 ([facility]ending sale to [facility]) Outpatient [address] [facility] [address] 02/09/2020 12:00:00 AM EST eCW1 ([facility]ending [facility] to [facility]) Unknown [address] [facility] [address] 02/04/2020 12:00:00 AM EST eCW1 ([facility]ending [facility] to [facility]) Office Visit Attender: MOOSE CHAPA [facility] Office 05/2019 01:45:00 PM EST MEDENT ([facility] Unknown [address] [facility] [address] 01/26/2020 12:00:00 AM EDT eCW1 (Pending sale to [facility]) Outpatient Attender: MOOSE CHAPA [facility] Office 01/01 02:30:00 PM EDT MEDENT ([facility] Outpatient Attender: Florencia Mcnair/Анна/Indra/Zeeshan mcdowell 01/20/2020 11:30:00 AM EDT MEDENT ([facility] Outpatient [address] [facility] [address] 01/19/2020 12:00:00 AM EDT eCW1 (Pending sale to [facility]) ([id number]) For [employer] [address] [place] [address] 01/09/2020 12:00:00 AM EDT eCW1 ([facility]) Unknown [address] [place] [address] 01/01/2020 12:00:00 AM EDT eCW1 ([facility] to [facility]) [place] [address] [facility] [place] [address] 12/30/2019 12:00:00 AM EDT eCW1 ([facility]ending [facility] to [facility]) Outpatient Attender: Florencia Mcnair/Анна/Indra/R eindl 12/17/2019 09:00:00 AM EDT [facility] Immunizations Vaccine Date Status Description Data Source(s) COVID-19 VACC,MRNA(MODERNA)/PF 09/06/2020 12:00:00 AM EDT completed [facility] COVID-19 VACCINE Moderna 09/06/2020 12:00:00 AM EDT completed [facility] Vaccine Series Complete: YESThis Data wa s Submitted to [facility] Via [employer]. COVID-19 VACC,MRNA(MODERNA)/PF 08/13/2020 12:00:00 AM EDT completed [facility] COVID-19 VACCINE Moderna 08/13/2020 12:00:00 AM EDT completed [facility] Vaccine Series Complete: NOThis Data was Submitted to [facility] Via [employer]. Medications Medication Brand Name Start Date Product Form Dose Route Admi nistrative Instructions Pharmacy Instructions Status Indications Reaction Description Data Source(s) Bisacodyl 10 MG Rectal Suppository Bisacodyl 10 MG 12/14/2020 12:00 :00 AM EDT 1.0 {suppository_as_needed} active Bisa codyl 10 MG eCW1 ([facility]) Docusate Sodium 100 MG Oral Capsule [Colace] Colace 100 MG C olace 100 MG 12/14/2020 12:00:00 AM EDT 1.0 {capsule_as_needed} suspended Colace 100 MG eCW1 ([facility]) Bisacodyl 10 MG Rectal Suppository Bisacodyl 10 MG 12/14/2020 12:00 :00 AM EDT 1.0 {suppository_as_needed} suspended Bi sacodyl 10 MG eCW1 ([facility]) Bisacodyl 10 MG Rectal Suppository Bisacodyl 10 MG 12/14/2020 12:00 :00 AM EDT 1.0 {suppository_as_needed} suspended Bi sacodyl 10 MG eCW1 ([facility]) Bisacodyl 10 MG Rectal Suppository Bisacodyl 10 MG 12/14/2020 12:00 :00 AM EDT 1.0 {suppository_as_needed} suspended Bi sacodyl 10 MG eCW1 ([facility]) Docusate Sodium 100 MG Oral Capsule [Colace] Colace 100 MG C olace 100 MG 12/14/2020 12:00:00 AM EDT 1.0 {capsule_as_needed} active Colace 100 MG eCW1 ([facility]) Docusate Sodium 100 MG Oral Capsule [Colace] Colace 100 MG C olace 100 MG 12/14/2020 12:00:00 AM EDT 1.0 {capsule_as_needed} suspended Colace 100 MG eCW1 ([facility]) Bisacodyl 10 MG Rectal Suppository Bisacodyl 10 MG 12/14/2020 12:00 :00 AM EDT 1.0 {suppository_as_needed} suspended Bi sacodyl 10 MG eCW1 ([facility]) Bisacodyl 10 MG Rectal Suppository Bisacodyl 10 MG 12/14/2020 12:00 :00 AM EDT 1.0 {suppository_as_needed} suspended Bi sacodyl 10 MG eCW1 ([facility]) Bisacodyl 10 MG Rectal Suppository Bisacodyl 10 MG 12/14/2020 12:00 :00 AM EDT 1.0 {suppository_as_needed} suspended Bi sacodyl 10 MG eCW1 ([facility]) Docusate Sodium 100 MG Oral Capsule [Colace] Colace 100 MG C olace 100 MG 12/14/2020 12:00:00 AM EDT 1.0 {capsule_as_needed} suspended Colace 100 MG eCW1 ([facility]) Docusate Sodium 100 MG Oral Capsule [Colace] Colace 100 MG C olace 100 MG 12/14/2020 12:00:00 AM EDT 1.0 {capsule_as_needed} suspended Colace 100 MG eCW1 ([facility]) Docusate Sodium 100 MG Oral Capsule [Colace] Colace 100 MG C olace 100 MG 12/14/2020 12:00:00 AM EDT 1.0 {capsule_as_needed} suspended Colace 100 MG eCW1 ([facility]) Docusate Sodium 100 MG Oral Capsule [Colace] Colace 100 MG C olace 100 MG 12/14/2020 12:00:00 AM EDT 1.0 {capsule_as_needed} suspended Colace 100 MG eCW1 ([facility]) Bisacodyl 10 MG Rectal Suppository Bisacodyl 10 MG 12/14/2020 12:00 :00 AM EDT 1.0 {suppository_as_needed} suspended Bi sacodyl 10 MG eCW1 ([facility]) Docusate Sodium 100 MG Oral Capsule [Colace] Colace 100 MG C olace 100 MG 12/14/2020 12:00:00 AM EDT 1.0 {capsule_as_needed} suspended Colace 100 MG eCW1 ([facility]) Ketoconazole 20 MG/ML Topical Cream Ketoconazole 2 % Ketocon azole 2 % 09/16/2020 12:00:00 AM EDT suspended Keto conazole 2 % eCW1 ([facility]) Ketoconazole 20 MG/ML Topical Cream Ketoconazole 2 % Ketocon azole 2 % 09/16/2020 12:00:00 AM EDT active Ketocon azole 2 % eCW1 ([facility]) Ketoconazole 20 MG/ML Topical Cream Ketoconazole 2 % Ketocon azole 2 % 09/16/2020 12:00:00 AM EDT active Ketocon azole 2 % eCW1 ([facility]) Ketoconazole 20 MG/ML Topical Cream Ketoconazole 2 % Ketocon azole 2 % 09/16/2020 12:00:00 AM EDT suspended Keto conazole 2 % eCW1 ([facility]) Ketoconazole 20 MG/ML Topical Cream Ketoconazole 2 % Ketocon azole 2 % 09/16/2020 12:00:00 AM EDT suspended Keto conazole 2 % eCW1 ([facility]) Ketoconazole 20 MG/ML Topical Cream Ketoconazole 2 % Ketocon azole 2 % 09/16/2020 12:00:00 AM EDT suspended Keto conazole 2 % eCW1 ([facility]) Ketoconazole 20 MG/ML Topical Cream Ketoconazole 2 % Ketocon azole 2 % 09/16/2020 12:00:00 AM EDT suspended Keto conazole 2 % eCW1 ([facility]) Ketoconazole 20 MG/ML Topical Cream Ketoconazole 2 % Ketocon azole 2 % 09/16/2020 12:00:00 AM EDT suspended Keto conazole 2 % eCW1 ([facility]) Ketoconazole 20 MG/ML Topical Cream Ketoconazole 2 % Ketocon azole 2 % 09/16/2020 12:00:00 AM EDT active Ketocon azole 2 % eCW1 ([facility]) Ketoconazole 20 MG/ML Topical Cream Ketoconazole 2 % Ketocon azole 2 % 09/16/2020 12:00:00 AM EDT active Ketocon azole 2 % eCW1 ([facility]) Ketoconazole 20 MG/ML Topical Cream Ketoconazole 2 % Ketocon azole 2 % 09/16/2020 12:00:00 AM EDT suspended Keto conazole 2 % eCW1 ([facility]) Prednisone 1 MG Oral Tablet predniSONE 1 MG predniSONE 1 MG 07/27/2020 12:00:00 AM EDT active predniSONE 1 MG e CW1 ([facility]) Prednisone 1 MG Oral Tablet PredniSONE 1 MG PredniSONE 1 MG 07/27/2020 12:00:00 AM EDT active PredniSONE 1 MG e CW1 ([facility]) Prednisone 1 MG Oral Tablet predniSONE 1 MG predniSONE 1 MG 07/27/2020 12:00:00 AM EDT active predniSONE 1 MG e CW1 ([facility]) Prednisone 1 MG Oral Tablet predniSONE 1 MG predniSONE 1 MG 07/27/2020 12:00:00 AM EDT active predniSONE 1 MG e CW1 ([facility]) Prednisone 1 MG Oral Tablet PredniSONE 1 MG PredniSONE 1 MG 07/27/2020 12:00:00 AM EDT active PredniSONE 1 MG e CW1 ([facility]) Prednisone 1 MG Oral Tablet predniSONE 1 MG predniSONE 1 MG 07/27/2020 12:00:00 AM EDT active predniSONE 1 MG e CW1 ([facility]) Prednisone 1 MG Oral Tablet predniSONE 1 MG predniSONE 1 MG 07/27/2020 12:00:00 AM EDT active predniSONE 1 MG e CW1 ([facility]) Prednisone 1 MG Oral Tablet PredniSONE 1 MG PredniSONE 1 MG 07/27/2020 12:00:00 AM EDT active PredniSONE 1 MG e CW1 ([facility]) Prednisone 1 MG Oral Tablet predniSONE 1 MG predniSONE 1 MG 07/27/2020 12:00:00 AM EDT active predniSONE 1 MG e CW1 ([facility]) Prednisone 1 MG Oral Tablet PredniSONE 1 MG PredniSONE 1 MG 07/27/2020 12:00:00 AM EDT active PredniSONE 1 MG e 1 ([facility]) Prednisone 1 MG Oral Tablet predniSONE 1 MG predniSONE 1 MG 07/27/2020 12:00:00 AM EDT active predniSONE 1 MG e CW1 ([facility]) Prednisone 1 MG Oral Tablet predniSONE 1 MG predniSONE 1 MG 07/27/2020 12:00:00 AM EDT active predniSONE 1 MG e CW1 ([facility]) Prednisone 1 MG Oral Tablet predniSONE 1 MG predniSONE 1 MG 07/27/2020 12:00:00 AM EDT active predniSONE 1 MG e CW1 ([facility]) Prednisone 1 MG Oral Tablet predniSONE 1 MG predniSONE 1 MG 07/27/2020 12:00:00 AM EDT active predniSONE 1 MG e CW1 ([facility]) Prednisone 1 MG Oral Tablet PredniSONE 1 MG PredniSONE 1 MG 07/27/2020 12:00:00 AM EDT active PredniSONE 1 MG e CW1 ([facility]) Prednisone 1 MG Oral Tablet PredniSONE 1 MG PredniSONE 1 MG 07/27/2020 12:00:00 AM EDT active PredniSONE 1 MG e CW1 ([facility]) Prednisone 1 MG Oral Tablet predniSONE 1 MG predniSONE 1 MG 07/27/2020 12:00:00 AM EDT active predniSONE 1 MG e CW1 ([facility]) aripiprazole 5 MG Oral Tablet Aripiprazole 5 MG Aripiprazole 5 MG 07/06/2020 12:00:00 AM EDT 1.0 {tablet} active Ar ipiprazole 5 MG eCW1 ([facility]) aripiprazole 5 MG Oral Tablet ARIPiprazole 5 MG ARIPiprazole 5 MG 07/06/2020 12:00:00 AM EDT 1.0 {tablet} active AR IPiprazole 5 MG eCW1 ([facility]) aripiprazole 5 MG Oral Tablet ARIPiprazole 5 MG ARIPiprazole 5 MG 07/06/2020 12:00:00 AM EDT 1.0 {tablet} active AR IPiprazole 5 MG eCW1 ([facility]) aripiprazole 5 MG Oral Tablet Aripiprazole 5 MG Aripiprazole 5 MG 07/06/2020 12:00:00 AM EDT 1.0 {tablet} active Ar ipiprazole 5 MG eCW1 ([facility]) aripiprazole 5 MG Oral Tablet Aripiprazole 5 MG Aripiprazole 5 MG 07/06/2020 12:00:00 AM EDT 1.0 {tablet} active Ar ipiprazole 5 MG eCW1 ([facility]) aripiprazole 5 MG Oral Tablet ARIPiprazole 5 MG ARIPiprazole 5 MG 07/06/2020 12:00:00 AM EDT 1.0 {tablet} active AR IPiprazole 5 MG eCW1 ([facility]) aripiprazole 5 MG Oral Tablet ARIPiprazole 5 MG ARIPiprazole 5 MG 07/06/2020 12:00:00 AM EDT 1.0 {tablet} active AR IPiprazole 5 MG eCW1 ([facility]) aripiprazole 5 MG Oral Tablet Aripiprazole 5 MG Aripiprazole 5 MG 07/06/2020 12:00:00 AM EDT 1.0 {tablet} active Ar ipiprazole 5 MG eCW1 ([facility]) aripiprazole 5 MG Oral Tablet ARIPiprazole 5 MG ARIPiprazole 5 MG 07/06/2020 12:00:00 AM EDT 1.0 {tablet} active AR IPiprazole 5 MG eCW1 ([facility]) aripiprazole 5 MG Oral Tablet Aripiprazole 5 MG Aripiprazole 5 MG 07/06/2020 12:00:00 AM EDT 1.0 {tablet} active Ar ipiprazole 5 MG eCW1 ([facility]) aripiprazole 5 MG Oral Tablet Aripiprazole 5 MG Aripiprazole 5 MG 07/06/2020 12:00:00 AM EDT 1.0 {tablet} active Ar ipiprazole 5 MG eCW1 ([facility]) aripiprazole 5 MG Oral Tablet ARIPiprazole 5 MG ARIPiprazole 5 MG 07/06/2020 12:00:00 AM EDT 1.0 {tablet} active AR IPiprazole 5 MG eCW1 ([facility]) aripiprazole 5 MG Oral Tablet Aripiprazole 5 MG Aripiprazole 5 MG 07/06/2020 12:00:00 AM EDT 1.0 {tablet} active Ar ipiprazole 5 MG eCW1 ([facility]) aripiprazole 5 MG Oral Tablet ARIPiprazole 5 MG ARIPiprazole 5 MG 07/06/2020 12:00:00 AM EDT 1.0 {tablet} active AR IPiprazole 5 MG eCW1 ([facility]) aripiprazole 5 MG Oral Tablet ARIPiprazole 5 MG ARIPiprazole 5 MG 07/06/2020 12:00:00 AM EDT 1.0 {tablet} active AR IPiprazole 5 MG eCW1 ([facility]) aripiprazole 5 MG Oral Tablet ARIPiprazole 5 MG ARIPiprazole 5 MG 07/06/2020 12:00:00 AM EDT 1.0 {tablet} active AR IPiprazole 5 MG eCW1 ([facility]) aripiprazole 5 MG Oral Tablet ARIPiprazole 5 MG ARIPiprazole 5 MG 07/06/2020 12:00:00 AM EDT 1.0 {tablet} active AR IPiprazole 5 MG eCW1 ([facility]) aripiprazole 5 MG Oral Tablet ARIPiprazole 5 MG ARIPiprazole 5 MG 07/06/2020 12:00:00 AM EDT 1.0 {tablet} active AR IPiprazole 5 MG eCW1 ([facility]) aripiprazole 5 MG Oral Tablet Aripiprazole 5 MG Aripiprazole 5 MG 07/06/2020 12:00:00 AM EDT 1.0 {tablet} active Ar ipiprazole 5 MG eCW1 ([facility]) aripiprazole 5 MG Oral Tablet Aripiprazole 5 MG Aripiprazole 5 MG 07/06/2020 12:00:00 AM EDT 1.0 {tablet} active Ar ipiprazole 5 MG eCW1 ([facility]) Cephalexin 500 MG Oral Capsule Cephalexin 05/27/2020 12:00:00 AM EST ORAL completed [facility] ([facility], ) Cephalexin 500 MG Oral Capsule [Keflex] Keflex 04/12/2020 12:00:0 0 AM EST ORAL completed [facility] ([facility], ) Misc. Devices - UNK 03/11/2020 12:00:00 AM EST active Misc. Devices - eCW1 ([facility]) Misc. Devices - UNK 03/11/2020 12:00:00 AM EST active Misc. Devices - eCW1 ([facility]) Misc. Devices - UNK 03/11/2020 12:00:00 AM EST active Misc. Devices - eCW1 ([facility]) Misc. Devices - UNK 03/11/2020 12:00:00 AM EST active Misc. Devices - eCW1 ([facility]) Misc. Devices - UNK 03/11/2020 12:00:00 AM EST active Misc. Devices - eCW1 ([facility]) Misc. Devices - UNK 03/11/2020 12:00:00 AM EST active Misc. Devices - eCW1 ([facility]) Misc. Devices - UNK 03/11/2020 12:00:00 AM EST active Misc. Devices - eCW1 ([facility]) Misc. Devices - UNK 03/11/2020 12:00:00 AM EST active Misc. Devices - eCW1 ([facility]) Misc. Devices - UNK 03/11/2020 12:00:00 AM EST active Misc. Devices - eCW1 ([facility]) Misc. Devices - UNK 03/11/2020 12:00:00 AM EST active Misc. Devices - eCW1 ([facility]) Misc. Devices - UNK 03/11/2020 12:00:00 AM EST active Misc. Devices - eCW1 ([facility]) Misc. Devices - UNK 03/11/2020 12:00:00 AM EST active Misc. Devices - eCW1 ([facility]) Misc. Devices - UNK 03/11/2020 12:00:00 AM EST active Misc. Devices - eCW1 ([facility]) Misc. Devices - UNK 03/11/2020 12:00:00 AM EST active Misc. Devices - eCW1 ([facility]) Misc. Devices - UNK 03/11/2020 12:00:00 AM EST active Misc. Devices - eCW1 ([facility]) Misc. Devices - UNK 03/11/2020 12:00:00 AM EST active Misc. Devices - eCW1 ([facility]) Misc. Devices - UNK 03/11/2020 12:00:00 AM EST active Misc. Devices - eCW1 ([facility]) Misc. Devices - UNK 03/11/2020 12:00:00 AM EST active Misc. Devices - eCW1 ([facility]) Misc. Devices - UNK 03/11/2020 12:00:00 AM EST active Misc. Devices - eCW1 ([facility]) Misc. Devices - UNK 03/11/2020 12:00:00 AM EST active Misc. Devices - eCW1 ([facility]) Wheelchair - Wheelchair - 02/24/2020 12:00:00 AM EST active Wheelchair - eCW1 ([facility]) Wheelchair - Wheelchair - 02/24/2020 12:00:00 AM EST active Wheelchair - eCW1 ([facility]) Wheelchair - Wheelchair - 02/24/2020 12:00:00 AM EST active Wheelchair - eCW1 ([facility]) Wheelchair - Wheelchair - 02/24/2020 12:00:00 AM EST active Wheelchair - eCW1 ([facility]) Wheelchair - Wheelchair - 02/24/2020 12:00:00 AM EST active Wheelchair - eCW1 ([facility]) Wheelchair - Wheelchair - 02/24/2020 12:00:00 AM EST active Wheelchair - eCW1 ([facility]) Wheelchair - Wheelchair - 02/24/2020 12:00:00 AM EST active Wheelchair - eCW1 ([facility]) Wheelchair - Wheelchair - 02/24/2020 12:00:00 AM EST active Wheelchair - eCW1 ([facility]) Wheelchair - Wheelchair - 02/24/2020 12:00:00 AM EST active Wheelchair - eCW1 ([facility]) Wheelchair - Wheelchair - 02/24/2020 12:00:00 AM EST active Wheelchair - eCW1 ([facility]) Wheelchair - Wheelchair - 02/24/2020 12:00:00 AM EST active Wheelchair - eCW1 ([facility]) Wheelchair - Wheelchair - 02/24/2020 12:00:00 AM EST active Wheelchair - eCW1 ([facility]) Wheelchair - Wheelchair - 02/24/2020 12:00:00 AM EST active Wheelchair - eCW1 ([facility]) Wheelchair - Wheelchair - 02/24/2020 12:00:00 AM EST active Wheelchair - eCW1 ([facility]) Wheelchair - Wheelchair - 02/24/2020 12:00:00 AM EST active Wheelchair - eCW1 ([facility]) Wheelchair - Wheelchair - 02/24/2020 12:00:00 AM EST active Wheelchair - eCW1 ([facility]) Wheelchair - Wheelchair - 02/24/2020 12:00:00 AM EST active Wheelchair - eCW1 ([facility]) Wheelchair - Wheelchair - 02/24/2020 12:00:00 AM EST active Wheelchair - eCW1 ([facility]) Wheelchair - Wheelchair - 02/24/2020 12:00:00 AM EST active Wheelchair - eCW1 ([facility]) Wheelchair - Wheelchair - 02/24/2020 12:00:00 AM EST active Wheelchair - eCW1 ([facility]) Wheelchair - Wheelchair - 02/24/2020 12:00:00 AM EST active Wheelchair - eCW1 ([facility]) Wheelchair - Wheelchair - 02/24/2020 12:00:00 AM EST active Wheelchair - eCW1 ([facility]) Wheelchair - Wheelchair - 02/24/2020 12:00:00 AM EST active Wheelchair - eCW1 ([facility]) Cephalexin 500 MG Oral Capsule Cephalexin [...] 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 GABRIEL RHONDA [id number] SELF [id number] MEDICARE [id number] SELF [id number] A MEDICARE PART A [id number] Patient [id number] MEDICARE [id number] SP [id number] A MEDICARE A [id number] Self [id number] A MEDICARE [id number] SP [id number] A MEDICAID M [id number] Self [id number] MEDICAID [id number] SP [id number] MEDICAID [id number] SP [id number] [place]ED[place] [id number] SP [id number] [facility] [id number] SP [id number] [facility] [id number] SP [id number] MEDICARE [id number] SP [id number] MEDICARE COMPLETE [id number] SP [id number] MEDICARE COMPLETE [id number] SP [id number] WELLCARE [id number] SP [id number] WELLCARE [id number] SP [id number] WELLCARE O [id number] S [id number] WELLCARE [id number] S [id number] WELLCARE O [id number] S [id number] MEDICARE [id number] SP [id number] MEDICAID [id number] SP [id number] MEDICARE C [id number] S [id number] WELLCARE [id number] S [id number] [id number] MEDICARE [id number] S [id number] [id number] WELLCARE [id number] S [id number] MEDICARE -RECURRING [id number] 18 [id number] MEDICAID -RECURRING [id number] ANSI-Medicaid [id number] ANSI-Medicare Part B [id number] ANSI-Medicaid [id number] ANSI-Medicare Part B [id number] ANSI-Medicare Part B [id number] ANSI-Medicaid [id number] ANSI-Medicare Part B [id number] ANSI-Medicaid [id number] ANSI-Medicaid [id number] ANSI-Medicare Part B [id number] ANSI-Medicaid [id number] ANSI-Medicare Part B [id number] ANSI-Medicaid [id number] ANSI-Medicare Part B [id number] ANSI-Medicaid [id number] ANSI-Medicare Part B [id number] ANSI-Medicare Part B [id number] ANSI-Medicaid [id number] ANSI-Medicare Part B [id number] ANSI-Medicaid [id number] ANSI-Medicare Part B [id number] ANSI-Medicaid [id number] ANSI-Medicare Part B [id number] ANSI-Medicaid [id number] ANSI-Medicaid [id number] ANSI-Medicare Part B [id number] ANSI-Medicare Part B [id number] ANSI-Medicaid [id number] MEDICARE -RECURRING [id number] 18 [id number] ANSI-Medicaid [id number] ANSI-Medicare Part B [id number] ANSI-Medicaid [id number] ANSI-Medicare Part B [id number] ANSI-Medicare Part B [id number] ANSI-Medicaid [id number] Medicaid [place] Medigap Part B [id number] Self [id number] Medicare [place]/[facility] Medicare Primary [id number] Self [id number] ANSI-Medicare Part B [id number] ANSI-Medicaid [id number] ANSI-Medicaid [id number] ANSI-Medicare Part B [id number] ANSI-Medicaid [id number] ANSI-Medicare Part B [id number] ANSI-Medicare Part B [id number] ANSI-Medicaid [id number] ANSI-Medicare Part B [id number] ANSI-Medicaid [id number] MEDICARE [id number] ANSI-Medicare Part B [id number] ANSI-Medicaid [id number] ANSI-Medicaid [id number] ANSI-Medicare Part B [id number] ANSI-Medicare Part B [id number] ANSI-Medicaid [id number] ANSI-Medicaid [id number] ANSI-Medicare Part B [id number] ANSI-Medicaid [id number] ANSI-Medicare Part B [id number] ANSI-Medicare Part B [id number] ANSI-Medicaid [id number] ANSI-Medicaid [id number] ANSI-Medicare Part B [id number] ANSI-Medicaid [id number] ANSI-Medicare Part B [id number] ANSI-Medicaid [id number] ANSI-Medicare Part B [id number] ANSI-Medicaid [id number] ANSI-Medicare Part B [id number] ANSI-Medicaid [id number] ANSI-Medicare Part B [id number] ANSI-Medicare Part B [id number] ANSI-Medicaid [id number] ANSI-Medicare Part B [id number] ANSI-Medicaid [id number] MEDICARE C [id number] S [id number] A [facility] MEDICARE PART B C [id number] S [id number] Medicaid [facility] Part B [id number] Self [id number] Medicare [place]/[facility] Medicare Primary [id number] Self [id number] [facility], [facility] C [id number] S [id number] Medicaid [facility] Part B [id number] Self [id number] Medicare [place]/[facility] Medicare Primary [id number] Self [id number] Medicaid [place] [facility] Part B [id number] Self [id number] Medicare [facility] Medicare Primary [id number] Self [id number] MEDICAID [id number] SP [id number] MEDICAID [id number] SP [id number] MEDICAID -O/P [id number] MEDICARE -O/P [id number] OTHER WORKERS COMPENSATION [id number] SP [id number] MEDICAID -CLINIC [id number] MEDICARE -CLINIC [id number] 18 [id number] WORKMANS COMPENSATION -O/ [id number] 18 [id number] MEDICAID -PHYSICIAN [id number] WORKMANS COMPENSATION -O/P [id number] 18 [id number] MEDICARE -PHYSICIAN [id number] [id number] [facility] MEDICAID [id number] SP [id number] MEDICARE COMPLETE [id number] SP [id number] MEDICARE [id number] SP [id number] [facility] MEDICARE [id number] S [id number] MEDICAID [id number] S [id number] MEDICARE COMPLETE [id number] SP [id number] EMED[place] [id number] SP [id number] MEDICARE COMPLETE-UHC O [id number] S [id number] MEDICAID M [id number] S [id number] WELLCARE [id number] SP [id number] MEDICARE COMPLETE-UH O [id number] S [id number] [facility] MEDICARE [id number] S [id number] Problems, Conditions, and Diagnoses Code Display Name Description Problem Type Effective Dates Data Source(s) 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 Diagnosis 01/24/2021 12:59:00 PM EDT [facility] Z96.41 Presence of insulin pump (external) (int ernal) PRESENCE OF INSULIN PUMP (EXTERNAL) (INTERNAL) Diagnosis 01/24/2021 12:59:00 PM EDT [facility] E10.65 Type 1 diabetes mellitus with hyperglyce sera TYPE 1 DIABETES MELLITUS WITH HYPERGLYCEMIA Diagnosis 01/24/2021 12:59:00 PM EDT [facility] S88.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, level unspecified, initial encounter COMPLETE TRAUMATIC AMPUTATION OF L LOW LEG, LEVEL UNSP , INIT Diagnosis 10/11/2020 10:38:00 AM EDT [facility] S88.911A Complete traumatic amputatio n of right lower leg, level unspecified, initial encounter COMPLETE TRAUMATIC AMPUTATION OF R LOW LEG, LEVEL UNSP , INIT Diagnosis 10/11/2020 10:38:00 AM EDT [facility] E78.5 Hyperlipidemia, unspecified HYPERLIPIDEMIA, UNSPECIFIE D Diagnosis 10/11/2020 10:38:00 AM EDT [facility] E27.40 Unspecified adrenocortical insufficiency UNSPECIFIED ADRENOCORTICAL INSUFFICIENCY Diagnosis 10/11/2020 10:38:00 AM EDT [facility] M86.9 [id number] Osteomyelitis of other site, unspecified type Problem 01/07/2021 12:00:00 AM EDT eCW1 ([facility]) E16.1 Hypoglycemia Hypoglycemia Problem 01/06/2021 12:00:00 A [...] stump Problem 12/17/2020 12:00:00 AM EDT [facility] ([facility], ) D61.818 [id number] Pancytopenia Problem 12/16/2020 12:00:00 AM EDT eCW1 ([facility]) S88.111A [id number] Below-knee amputation of right lower extr emity Problem 04/06/2020 12:00:00 AM EST eCW1 ([facility]) Z89.511 [id number] Acquired absence of right leg below knee Problem 03/11/2020 12:00:00 AM EST eCW1 ([facility]) Z89.512 [id number] 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 Problem 03/11/2020 12:00:00 AM EST eCW1 ([facility]) S88.119A [id number] Amputation below knee Problem 02/24/2020 12: 00:00 AM EST eCW1 ([facility]) M86.9 [id number] Osteomyelitis of right foot, unspecif ied type Problem 02/19/2020 12:00:00 AM EST eCW1 ([facility]) [id number] O/E - Amputated left below knee O/E - Amputated left below knee Problem 01/26/2020 12:00:00 AM EDT [facility] ([facility] 84148959 Pain in limb Pain in limb Problem 01/26/2020 12:00:00 A M EDT [facility] ([facility] [id number] Gangrenous disorder Gangrenous disorder Problem 1 12:00:00 AM EDT [facility] [id number] Pressure ulcer of right foot stage 4 Pre ssure ulcer of right foot stage 4 Problem 01/26/2020 12:00:00 AM EDT [facility] 549563045 Type 2 diabetes mellitus with ulcer Type 2 diabetes mellitus with ulcer Problem 01/26/2020 12:00:00 AM EDT [facility] ([facility] L97.514 [id number] 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 Problem 12/31/2019 12:00:00 AM EDT [facility] ([facility]) E11.621 [id number] Type 2 diabetes mellitus with foot ulcer Problem 12/31/2019 12:00:00 AM [place] [id number] ([facility]) Surgeries/Procedures Procedure Description Date Indications Data Source(s) Hospital outpatient clinic visit for assessment and ma nagement of a patient Hospital Outpatient Clinic Visit 01/24/2021 12:00:00 AM [facility] GLUC BLD GLUC MNTR DEV CLEARED FDA SPEC HOME USE GLUCOSE BLO OD TEST 01/24/2021 12:00:00 AM [facility] COLLECTION VENOUS BLOOD VENIPUNCTURE ROUTINE VENIPUNCTURE 12:00:00 AM [facility] HEMOGLOBIN GLYCOSYLATED A1C GLYCOSYLATED HEMOGLOBIN TEST 12:00:00 AM [facility] LIPID PANEL LIPID PANEL 01/24/2021 12:00:00 AM [facility] BASIC METABOLIC PANEL CALCIUM TOTAL METABOLIC PANEL TOTAL CA 01/24/2021 12:00:00 AM [facility] Debridement Skin, Subcutaneous Tissue & Muscle 021 12:00:00 AM [facility] OFFICE OUTPATIENT VISIT 15 MINUTES 01/06/2021 12:00:00 AM EDT [facility] AMP LEG THRU TIBIA&FIBULA RE-AMPUTATION 12/08/2020 12: 00:00 AM EDT [facility] ([facility], ) OFFICE OUTPATIENT VISIT 15 MINUTES 11/11/2020 12:00:00 AM EDT [facility] ([facility], ) OFFICE OUTPATIENT VISIT 15 MINUTES 11/01/2020 12:00:00 AM EDT [facility] ([facility], ) COMPREHENSIVE METABOLIC PANEL COMPREHEN METABOLIC PANEL 09/30 12:00:00 AM [facility] OFFICE OUTPATIENT VISIT 15 MINUTES 08/12/2020 12:00:00 AM EDT [facility] ([facility], ) OFFICE OUTPATIENT VISIT 15 MINUTES 07/08/2020 12:00:00 AM EDT [facility] ([facility], ) OFFICE OUTPATIENT VISIT 15 MINUTES 06/07/2020 12:00:00 AM EST [facility] ([facility]) Amputation Below Knee 03/03/2020 12:00:00 AM EST [facility] ([facility]) FINE NEEDLE ASPIRATION W/O IMAGING GUIDANCE 02/23/2020 12:00:00 AM EST e[facility]1 ([facility]) Amputation Metatarsal W/Toe 01/28/2020 12:00:00 AM EDT [facility] ([facility] FINE NEEDLE ASPIRATION W/O IMAGING GUIDANCE 01/19/2020 12:00:00 AM EDT eCW1 ([facility]) FINE NEEDLE ASPIRATION W/O IMAGING GUIDANCE 01/09/2020 12:00:00 AM EDT eCW1 ([facility]) Revascularization,Endovascular,Transluminal Angioplasty 12/31/2019 12:00:00 AM EDT [facility] ([facility]) REVSC OPN/PRQ TIB/FABIENNE W/ANGIOPLASTY UNI 12/31/2019 12 :00:00 AM EDT [facility] ([facility]) REVSC OPN/PRQ TIB/FABIENNE W/ANGIOPLASTY UNI EA VSL 2019 12:00:00 AM EDT [facility] ([facility]) Moderate Sedation Services; Same Phys Intl 15 Mins; PT >= 5 Years 12/31/2019 12:00:00 AM EDT [facility] ([facility]) Results ID Date Data Source [id number] 01/24/2021 05:41:00 PM EDT [facility] Name Value Range Interpretation Code Description Data Mireille rce(s) Supporting Document(s) Hemoglobin A1C % Less than 5.7% Above high normal [facility] HBA1C: Normal: Less than 5.7% Prediabetes: 5.7% to 6.4% Diabetes: 6.5% or higher HA1C % vs Estimated Average Glucose (eAG) % eAG % eAG 6% 126 mg/dL 10% 240 mg/dL 7% 154 mg/dL 11% 269 mg/dL 8% 183 mg/dL 12% 298 mg/dL 9% 212 mg/dL Reference: [place] [employer], 2017 ID Date Data Source [id number] 01/24/2021 05:34:00 PM EDT [facility] Name Value Range Interpretation Code Description Data Mireille rce(s) Supporting Document(s) Sodium 137 mmol/L 137-145 Normal (applies to non-numeric resul ts) [facility] Potassium 3.5-5.1 Normal (applies to non-numeric resul ts) [facility] Chloride 107 mmol/L 98-112 Normal (applies to non-numeric resul ts) [facility] Carbon Dioxide CO2 22.0-33.0 Normal (applies to non-numer ic results) [facility] Anion Gap 4.0-11.0 Normal (applies to non-numeric resul ts) [facility] BUN 16 mg/dL 9-20 Normal (applies to non-numeric resul ts) [facility] Creatinine 0.80-1.50 Normal (applies to non-numeric resul ts) [facility] GFR 55 mL/min >60 Below low normal [facility] Result based on MDRD formula. Glucose Level 107 mg/dL 74-99 Above high normal [facility] The reference range is only applicable w hen fasting. Calcium-Uncorrected 8.4-10.2 Normal (applies to non-nume nelson results) [facility] Corrected Calcium 8.4-10.2 Normal (applies to non-numeri c results) [facility] ID Date Data Source [id number] 01/24/2021 05:34:00 PM EDT [facility] Name Value Range Interpretation Code Description Data Mireille rce(s) Supporting Document(s) Triglycerides 52 mg/dL 0-150 Normal (applies to non-numeric re sults) [facility] Cholesterol 119 mg/dL 0-200 Normal (applies to non-numeric resu lts) [facility] LDL Cholesterol,Direct 50 mg/dL <100 Normal (applies to non-n umeric results) [facility] LDL Interpretative Data Optimal <100 (mg/dL) Near optimal 100-129 (mg/dL) Borderline High 130-159 (mg/dL) High 160-189 (mg/dL) Very High >190 (mg/dL) HDL Cholesterol 63 mg/dL 40-60 Above high normal [facility] CHOL/HDL Ratio Normal (applies to non-numeric r esults) [facility] NATIONAL CHOLESTEROL GUIDEL [facility], [...] Average 13.5 11.0 ID Date Data Source [id number] 01/10/2021 06:21:00 AM EDT [facility] Name Value Range Interpretation Code Description Data Mireille rce(s) Supporting Document(s) SARS coronavirus 2 RNA [Presence] in Res piratory specimen by DAILY with probe detection NEGATIVE [facility] This lab was ordered by [facility] a nd reported by [facility]. ID Date Data Source [id number] 01/02/2021 02:12:00 PM EDT [facility] Name Value Range Interpretation Code Description Data Mireille rce(s) Supporting Document(s) SARS-CoV-2 (COVID 19) NEGATIVE - SARS-CoV-2 (COVID19) [facility] This lab was ordered by [facility] LABORATORY a nd reported by [facility]. ID Date Data Source [id number] 12/19/2020 11:07:00 PM EDT [facility] Name Value Range Interpretation Code Description Data Mireille rce(s) Supporting Document(s) SARS coronavirus 2 RNA [Presence] in Res piratory specimen by DAILY with probe detection NEGATIVE [facility] This lab was ordered by [facility] a nd reported by [facility]. ID Date Data Source [id number] 12/06/2020 12:21:00 AM EDT [facility] Name Value Range Interpretation Code Description Data Mireille rce(s) Supporting Document(s) SARS coronavirus 2 RNA [Presence] in Res piratory specimen by DAILY with probe detection NEGATIVE [facility] This lab was ordered by [facility] a nd reported by [facility]. ID Date Data Source [id number] 10/11/2020 01:58:00 PM EDT [facility] Name Value Range Interpretation Code Description Data Mireille rce(s) Supporting Document(s) Hemoglobin A1C % Less than 5.7% Above high normal [facility] HBA1C: Normal: Less than 5.7% Prediabetes: 5.7% to 6.4% Diabetes: 6.5% or higher HA1C % vs Estimated Average Glucose (eAG) % eAG % eAG 6% 126 mg/dL 10% 240 mg/dL 7% 154 mg/dL 11% 269 mg/dL 8% 183 mg/dL 12% 298 mg/dL 9% 212 mg/dL Reference: [place] [employer], 2017 ID Date Data Source [id number] 10/11/2020 01:21:00 PM EDT [facility] Name Value Range Interpretation Code Description Data Mireille rce(s) Supporting Document(s) Sodium 137 mmol/L 137-145 Normal (applies to non-numeric resul ts) [facility] Potassium 3.5-5.1 Normal (applies to non-numeric resul ts) [facility] Chloride 102 mmol/L 98-112 Normal (applies to non-numeric resul ts) [facility] Carbon Dioxide CO2 22.0-33.0 Normal (applies to non-numer ic results) [facility] Anion Gap 4.0-11.0 Normal (applies to non-numeric resul ts) [facility] BUN 16 mg/dL 9-20 Normal (applies to non-numeric resul ts) [facility] Creatinine 0.80-1.50 Normal (applies to non-numeric resul ts) [facility] GFR 66 mL/min >60 Normal (applies to non-numeric resul ts) [facility] Result based on MDRD formula. Glucose Level 194 mg/dL 74-99 Above high normal [facility] The reference range is only applicable w hen fasting. Calcium-Uncorrected 8.4-10.2 Normal (applies to non-nume nelson results) [facility] Corrected Calcium 8.4-10.2 Normal (applies to non-numeri c results) [facility] Bilirubin,Total 0.2-1.3 Normal (applies to non-numeric results) [facility] SGOT(AST) 42 U/L 17-59 Normal (applies to non-numeric resul ts) [facility] SGPT(ALT) 57 U/L 21-72 Normal (applies to non-numeric resul ts) [facility] Alkaline Phosphatase 89 U/L 38-126 Normal (applies to non-num gage results) [facility] can increase Alkaline Phosp le vels up to 2 times the normal adult value. Normal values for children and adolescents are 2 to 3 times the normal adult value. Total Protein 6.3-8.2 Normal (applies to non-numeric re sults) [facility] Albumin 3.5-5.0 Normal (applies to non-numeric resul ts) [facility] ID Date Data Source [id number] 08/14/2020 10:59:00 PM EDT [facility] Name Value Range Interpretation Code Description Data Mireille rce(s) Supporting Document(s) SARS-CoV-2 (COVID 19) NEGATIVE - SARS-CoV-2 (COVID19) [facility] This lab was ordered by [facility] a nd reported by [facility]. ID Date Data Source [id number] 07/09/2020 03:28:00 PM EDT [facility] Name Value Range Interpretation Code Description Data Mireille rce(s) Supporting Document(s) Hemoglobin A1C % Less than 5.7% Above high normal [facility] HBA1C: Normal: Less than 5.7% Prediabetes: 5.7% to 6.4% Diabetes: 6.5% or higher HA1C % vs Estimated Average Glucose (eAG) % eAG % eAG 6% 126 mg/dL 10% 240 mg/dL 7% 154 mg/dL 11% 269 mg/dL 8% 183 mg/dL 12% 298 mg/dL 9% 212 mg/dL Reference: [place] [employer], 2017 ID Date Data Source [id number] 07/09/2020 03:23:00 PM EDT [facility] Name Value Range Interpretation Code Description Data Mireille rce(s) Supporting Document(s) Sodium 136 mmol/L 137-145 Below low normal [facility] Potassium 3.5-5.1 Normal (applies to non-numeric resul ts) [facility] Chloride 101 mmol/L 98-112 Normal (applies to non-numeric resul ts) [facility] Carbon Dioxide CO2 22.0-33.0 Normal (applies to non-numer ic results) [facility] Anion Gap 4.0-11.0 Normal (applies to non-numeric resul ts) [facility] BUN 17 mg/dL 9-20 Normal (applies to non-numeric resul ts) [facility] Creatinine 0.80-1.50 Normal (applies to non-numeric resul ts) [facility] GFR 57 mL/min >60 Below low normal [facility] Result based on MDRD formula. Glucose Level 296 mg/dL 74-99 Above high normal [facility] The reference range is only applicable w hen fasting. Calcium-Uncorrected 8.4-10.2 Normal (applies to non-nume nelson results) [facility] Corrected Calcium 8.4-10.2 Normal (applies to non-numeri c results) [facility] ID Date Data Source [id number] 05/02/2020 02:06:00 AM EST [facility] Name Value Range Interpretation Code Description Data Mireille rce(s) Supporting Document(s) SARS coronavirus 2 RNA [Presence] in Res piratory specimen by DAILY with probe detection POSITIVE [facility] This lab was ordered by [facility] a nd reported by [facility]. ID Date Data Source [id number] 04/29/2020 10:04:00 AM EST [facility] Name Value Range Interpretation Code Description Data Mireille rce(s) Supporting Document(s) SARS COVID ANTIGEN POSITIVE [facility] This lab was ordered by POLI MEJIA a nd reported by [facility]. ID Date Data Source [id number] COVID AG (Point of Care) 04/29/2020 12:00:00 AM EST eC W1 ([facility]) Name Value Range Interpretation Code Description Data Mireille rce(s) Supporting Document(s) POSITIVE NEGATIVE LYNNE COVID ANTIGEN eCW1 ([facility]) ID Date Data Source [id number] 04/12/2020 08:23:00 PM EST [facility] Name Value Range Interpretation Code Description Data Mireille rce(s) Supporting Document(s) SARS-CoV-2 (COVID 19) NEGATIVE - SARS-CoV-2 (COVID19) [facility] This lab was ordered by [facility] a nd reported by [facility]. ID Date Data Source [id number] 03/16/2020 05:11:00 AM EST [facility] Name Value Range Interpretation Code Description Data Mireille rce(s) Supporting Document(s) Hemoglobin A1C % Less than 5.7% Above high normal [facility] HBA1C: Normal: Less than 5.7% Prediabetes: 5.7% to 6.4% Diabetes: 6.5% or higher HA1C % vs Estimated Average Glucose (eAG) % eAG % eAG 6% 126 mg/dL 10% 240 mg/dL 7% 154 mg/dL 11% 269 mg/dL 8% 183 mg/dL 12% 298 mg/dL 9% 212 mg/dL Reference: [place] [employer], 2017 ID Date Data Source [id number] 02/28/2020 11:00:00 AM EST [facility] Name Value Range Interpretation Code Description Data Mireille rce(s) Supporting Document(s) SARS coronavirus 2 RNA [facility] This lab was ordered by [facility] and reported by [facility]. ID Date Data Source [id number] 01/28/2020 04:53:00 PM EDT [facility] ([facility] Name Value Range Interpretation Code Description Data Mireille rce(s) Supporting Document(s) Glucose [Mass/volume] in Capillary blood by Glucometer 154 mg/dL 80-115 Above high normal [facility] ([facility] ID Date Data Source [id number] 01/28/2020 04:09:00 PM EDT [facility] ([facility] [...] An area of gangrenous changes is noted. Conveyor Feeder sections are submitted in two after decalcification. -OA 01/29/20201303 Signed SALINA SAUNDERS MD 01/30/2020956 ID Date Data Source [id number] 01/28/2020 11:26:00 AM EDT [facility] ([facility] Name Value Range Interpretation Code Description Data Mireille rce(s) Supporting Document(s) Glucose [Mass/volume] in Capillary blood by Glucometer 91 mg/dL 80- 115 [facility] ([facility] ID Date Data Source [id number] 12/31/2019 11:17:00 AM EDT [facility] ([facility], ) Name Value Range Interpretation Code Description Data Mireille rce(s) Supporting Document(s) Glucose [Mass/volume] in Capillary blood by Glucometer 142 mg/dL 80-115 Above high normal [facility] ([facility]) ID Date Data Source [id number] [facility] Name Value Range Interpretation Code Description Data Mireille rce(s) Supporting Document(s) Glucose [Mass/volume] in Capillary blood by Glucometer 131 mg/dL 80-115 Above high normal [facility] ([facility]) ID Date Data Source [id number] 12/17/2019 10:05:[facility] Name Value Range Interpretation Code Description Data Mireille rce(s) Supporting Document(s) Glucose, Fasting 158 mg/dL 70-100 Above high normal [facility] ([facility]) Blood Urea Nitrogen 15 mg/dL 7-18 Normal (applies to non-nume nelson results) [facility] ([facility]) Creatinine For GFR 1.36 mg/dL 0.70-1.30 Above high normal [facility] ([facility]) Glomerular Filtration Rate 56.9 Normal (applies to n on-numeric results) [facility]) <content>Units are mL/min/1.73 m2</content>
<content></content>
<content>Chronic Kidney Disease Staging per NKF:</content>
<content></content>
<content>Stage I & II GFR >=60 Normal to Mildly Decreased</content>
<content>Stage III GFR 30- 59 Moderately Decreased</content>
<content>Stage IV GFR 15-29 Severely Decreased</content>
<content>Stage V GFR <15 Very Little GFR Left</content>
<content>ESRD GFR <15 on FIRE ALARM INSTALLER</content>
<content></content> Sodium Level 139 meq/L 136-145 Normal (applies to non-numeric res ults) [facility] ([facility]) Chloride Level 105 meq/L 98-107 Normal (applies to non-numeric r esults) [facility] ([facility]) Carbon Dioxide Level 27 meq/L 21-32 Normal (applies to non-num gage results) [facility]) Potassium Serum 4.6 meq/L 3.5-5.1 Normal (applies to non-numeric results) [facility] ([facility]) Calcium Level 9.3 mg/dL 8.8-10.2 Normal (applies to non-numeric re sults) [facility]) Anion Gap 7 meq/L 8-16 Below low normal [facility] ( [facility]) ID Date Data Source [id number] 12/17/2019 10:05:00 AM EDT [facility]) Name Value Range Interpretation Code Description Data Mireille rce(s) Supporting Document(s) White Blood Count 6.8 10 4.0-10.0 Normal (applies to non-numeri c results) [facility] ([facility]) Red Blood Count 3.47 10 4.30-6.10 Below low normal [facility] ([facility]) Hemoglobin 11.2 g/dL 13.5-17.5 Below low normal [facility]) Hematocrit 32.8 % 42.0-52.0 Below low normal [facility] ( [facility]) Mean Corpuscular Volume 94.5 fl 80.0-96.0 Normal ( applies to non-numeric results) [facility]) Mean Corpuscular Hemoglobin 32.3 pg 27.0-33.0 Norm al (applies to non-numeric results) [facility]) Mean Corpuscular HGB Conc 34.1 g/dL 32.0-36.5 Normal (applies to non-numeric results) [facility]) Red Cell Distribution Width 12.1 % 11.5-14.5 Norm al (applies to non-numeric results) [facility]) Nucleated Red Blood Cell % 0.0 % 0-0 Normal (applies to n on-numeric results) [facility]) Platelet Count, Automated 214 10 150-450 Normal (applies to non-numeric results) [facility] ([facility], ) Procedure Social History Code Duration Value Status Description Data Source(s ) Smoking 01/21/2021 12:00:00 AM EDT Former Smoker completed Former Smoker eCW1 ([facility]) Smoking 01/21/2021 12:00:00 AM EDT Former Smoker completed Former Smoker eCW1 ([facility]) Smoking 12/23/2020 12:00:00 AM EDT Former Smoker completed Former Smoker eCW1 ([facility]) Smoking 12/23/2020 12:00:00 AM EDT Former Smoker completed Former Smoker eCW1 ([facility]) Smoking 12/23/2020 12:00:00 AM EDT Former Smoker completed Former Smoker eCW1 ([facility]) Smoking 12/16/2020 12:00:00 AM EDT Former Smoker completed Former Smoker eCW1 ([facility]) Smoking 12/16/2020 12:00:00 AM EDT Former Smoker completed Former Smoker eCW1 ([facility]) Smoking 08/24/2020 12:00:00 AM EDT Former Smoker completed Former Smoker eCW1 ([facility]) Smoking 08/24/2020 12:00:00 AM EDT Former Smoker completed Former Smoker eCW1 ([facility]) Smoking 08/24/2020 12:00:00 AM EDT Former Smoker completed Former Smoker eCW1 ([facility]) Smoking 08/24/2020 12:00:00 AM EDT Former Smoker completed Former Smoker eCW1 ([facility]) Smoking 08/24/2020 12:00:00 AM EDT Former Smoker completed Former Smoker eCW1 ([facility]) Smoking 07/27/2020 12:00:00 AM EDT Former Smoker completed Former Smoker eCW1 ([facility]) Smoking 07/27/2020 12:00:00 AM EDT Former Smoker completed Former Smoker eCW1 ([facility]) Smoking 07/27/2020 12:00:00 AM EDT Former Smoker completed Former Smoker eCW1 ([facility]) Smoking 07/27/2020 12:00:00 AM EDT Former Smoker completed Former Smoker eCW1 ([facility]) Smoking 07/27/2020 12:00:00 AM EDT Former Smoker completed Former Smoker eCW1 ([facility]) Smoking 07/06/2020 12:00:00 AM EDT Former Smoker completed Former Smoker eCW1 ([facility]) Smoking 07/06/2020 12:00:00 AM EDT Former Smoker completed Former Smoker eCW1 ([facility]) Smoking 07/06/2020 12:00:00 AM EDT Former Smoker completed Former Smoker eCW1 ([facility]) Smoking 05/28/2020 12:00:00 AM EST Non Smoker completed Non Smoke r [facility] ([facility], ) Smoking 05/13/2020 12:00:00 AM EST Former Smoker completed Former Smoker eCW1 ([facility]) Smoking 05/13/2020 12:00:00 AM EST Former Smoker completed Former Smoker eCW1 ([facility]) Smoking 05/13/2020 12:00:00 AM EST Former Smoker completed Former Smoker eCW1 ([facility]) Smoking 05/13/2020 12:00:00 AM EST Former Smoker completed Former Smoker eCW1 ([facility]) Smoking 05/05/2020 12:00:00 AM EST Former Smoker completed Former Smoker eCW1 ([facility]) Smoking 05/05/2020 12:00:00 AM EST Former Smoker completed Former Smoker eCW1 ([facility]) Smoking 05/05/2020 12:00:00 AM EST Former Smoker completed Former Smoker eCW1 ([facility]) Smoking 05/05/2020 12:00:00 AM EST Former Smoker completed Former Smoker eCW1 ([facility]) Smoking 05/05/2020 12:00:00 AM EST Former Smoker completed Former Smoker eCW1 ([facility]) Smoking 05/05/2020 12:00:00 AM EST Former Smoker completed Former Smoker eCW1 ([facility]) Smoking 05/05/2020 12:00:00 AM EST Former Smoker completed Former Smoker eCW1 ([facility]) Smoking 04/29/2020 12:00:00 AM EST Former Smoker completed Former Smoker eCW1 ([facility]) Smoking 04/06/2020 12:00:00 AM EST Former Smoker completed Former Smoker eCW1 ([facility]) Smoking 04/06/2020 12:00:00 AM EST Former Smoker completed Former Smoker eCW1 ([facility]) Smoking 04/06/2020 12:00:00 AM EST Former Smoker completed Former Smoker eCW1 ([facility]) Smoking 04/06/2020 12:00:00 AM EST Former Smoker completed Former Smoker eCW1 ([facility]) Smoking 04/06/2020 12:00:00 AM EST Former Smoker completed Former Smoker eCW1 ([facility]) Smoking 04/06/2020 12:00:00 AM EST Former Smoker completed Former Smoker eCW1 ([facility]) Smoking 04/06/2020 12:00:00 AM EST Former Smoker completed Former Smoker eCW1 ([facility]) Smoking 02/25/2020 12:00:00 AM EST Former Smoker completed Former Smoker eCW1 ([facility]) Smoking 02/25/2020 12:00:00 AM EST Former Smoker completed Former Smoker eCW1 ([facility]) Smoking 02/25/2020 12:00:00 AM EST Former Smoker completed Former Smoker eCW1 ([facility]) Smoking 02/25/2020 12:00:00 AM EST Former Smoker completed Former Smoker eCW1 ([facility]) Smoking 02/25/2020 12:00:00 AM EST Former Smoker completed Former Smoker eCW1 ([facility]) Smoking 02/25/2020 12:00:00 AM EST Former Smoker completed Former Smoker eCW1 ([facility]) Smoking 02/25/2020 12:00:00 AM EST Former Smoker completed Former Smoker eCW1 ([facility]) Smoking 02/24/2020 12:00:00 AM EST Former Smoker completed Former Smoker eCW1 ([facility]) Smoking 02/19/2020 12:00:00 AM EST Former Smoker completed Former Smoker eCW1 ([facility]) Smoking 02/19/2020 12:00:00 AM EST Former Smoker completed Former Smoker eCW1 ([facility]) Smoking 02/19/2020 12:00:00 AM EST Former Smoker completed Former Smoker eCW1 ([facility]) Smoking 02/09/2020 12:00:00 AM EST Former Smoker completed Former Smoker eCW1 ([facility]) Smoking 02/09/2020 12:00:00 AM EST Former Smoker completed Former Smoker eCW1 ([facility]) Smoking 01/19/2020 12:00:00 AM EDT Former Smoker completed Former Smoker eCW1 ([facility]) Smoking 01/19/2020 12:00:00 AM EDT Former Smoker completed Former Smoker eCW1 ([facility]) Smoking 01/19/2020 12:00:00 AM EDT Former Smoker completed Former Smoker eCW1 ([facility]) Vital Signs ID Date Data Source UNK Name Value Range Interpretation Code Description Data Source(s) Systolic blood pressure 109 mm[Hg] 109 mm[Hg] M [facility] ([facility]) Heart rate 82 /min 82 /min [facility] ([facility]) Body temperature 98.8 [degF] 98.8 [degF] [facility] ([facility]) Body height 69 [in_i] 69 [in_i] [facility] ([facility]) 5'9" Body weight 164.00 [lb_av] 164.00 [lb_av] [facility] ([facility]) Body mass index (BMI) [Ratio] 24.2 kg/m2 24.2 k g/m2 [facility] ([facility]) [place] body weight 160 [lb_av] 160 [lb_av] [facility] ([facility]) Body weight 74.390 kg 74.390 kg [facility] ([facility]) Body surface area Derived from formula 1.90 m2 1.90 m2 [facility] ([facility]) Diastolic blood pressure 65 mm[Hg] 65 mm[Hg] [facility] ([facility]) Body weight 154.4 [lb_av] 154.4 [lb_av] eCW1 ([facility]) Body height 69 [in_i] 69 [in_i] eCW1 ([facility]) Body mass index (BMI) [Ratio] 22.80 kg/m2 22.80 kg/m2 eCW1 ([facility]) Heart rate 78 /min 78 /min eCW1 ([facility]) Respiratory rate 18 /min 18 /min eCW1 ([facility]) Body temperature 97.6 [degF] 97.6 [degF] eCW1 ( [facility]) Systolic blood pressure 146 mm[Hg] 146 mm[Hg] e CW1 ([facility]) Diastolic blood pressure 66 mm[Hg] 66 mm[Hg] eCW1 ([facility]) Systolic blood pressure 138 mm[Hg] 138 mm[Hg] M [facility] ([facility]) Diastolic blood pressure 80 mm[Hg] 80 mm[Hg] [facility] ([facility]) Body temperature 97.9 [degF] 97.9 [degF] [facility] ([facility]) Body weight 152.00 [lb_av] 152.00 [lb_av] [facility] ([facility]) Body surface area Derived from formula 1.84 m2 1.84 m2 [facility] ([facility]) Body height 69 [in_i] 69 [in_i] [facility] ([facility]) 5'9" Body mass index (BMI) [Ratio] 22.4 kg/m2 22.4 k g/m2 [facility] ([facility]) [place] body weight 160 [lb_av] 160 [lb_av] [facility] ([facility]) Body weight 68.947 kg 68.947 kg [facility] ([facility]) Body weight 162.6 [lb_av] 162.6 [lb_av] eCW1 ([facility]) Body height 69 [in_i] 69 [in_i] eCW1 ([facility]) Body mass index (BMI) [Ratio] 24.01 kg/m2 24.01 kg/m2 eCW1 ([facility]) Heart rate 70 /min 70 /min eCW1 ([facility]) Respiratory rate 18 /min 18 /min eCW1 ([facility]) Body temperature 98.1 [degF] 98.1 [degF] eCW1 ( [facility]) Systolic blood pressure 112 mm[Hg] 112 mm[Hg] e CW1 ([facility]) Diastolic blood pressure 55 mm[Hg] 55 mm[Hg] eCW1 ([facility]) Heart rate 65 /min 65 /min [facility] ([facility], ) Body mass index (BMI) [Ratio] 24.4 kg/m2 24.4 k g/m2 [facility] ([facility]) Systolic blood pressure 116 mm[Hg] 116 mm[Hg] M [facility] ([facility]) Diastolic blood pressure 71 mm[Hg] 71 mm[Hg[facility] Body height 69 [in_i] 69 [in_i] [facility] ([facility]) 5'9" Body weight 165.25 [lb_av] 165.25 [lb_av] [facility] [place] body weight 160 [lb_av] 160 [lb_av] [facility] Body weight 74.957 kg 74.957 kg [facility] ([facility]) Body surface area Derived from formula 1.91 m2 1.91 m2 [facility] ([facility]) Heart rate 73 /min 73 /min eCW1 ([facility]) Respiratory rate 18 /min 18 /min eCW1 ([facility]) Body temperature 97.4 [degF] 97.4 [degF] eCW1 ( [facility]) Systolic blood pressure 106 mm[Hg] 106 mm[Hg] e CW1 ([facility]) Diastolic blood pressure 49 mm[Hg] 49 mm[Hg] eCW1 ([facility]) Body weight 165.2 [lb_av] 165.2 [lb_av] eCW1 ([facility]) Body height 69 [in_i] 69 [in_i] eCW1 ([facility]) Body mass index (BMI) [Ratio] 24.39 kg/m2 24.39 kg/m2 eCW1 ([facility]) Body weight 164.00 [lb_av] 164.00 [lb_av] [facility] ([facility]) Body mass index (BMI) [Ratio] 24.2 kg/m2 24.2 k g/m2 [facility] ([facility]) Systolic blood pressure 153 mm[Hg] 153 mm[Hg] [facility] Diastolic blood pressure 76 mm[Hg] 76 mm[Hg] [facility] ([facility]) Heart rate 67 /min 67 /min [facility] ([facility]) Body height 69 [in_i] 69 [in_i] [facility] ([facility]) 5'9" [place] body weight 160 [lb_av] 160 [lb_av] [facility] ([facility]) Body weight 74.390 kg 74.390 kg [facility] ([facility]) Body surface area Derived from formula 1.90 m2 1.90 m2 [facility] ([facility]) Body height 69 [in_i] 69 [in_i] [facility] ([facility]) 5'9" Body weight 74.390 kg 74.390 kg [facility] ([facility]) Systolic blood pressure 130 mm[Hg] 130 mm[Hg] M [facility] ([facility]) Diastolic blood pressure 68 mm[Hg] 68 mm[Hg] [facility] ([facility]) Body weight 164.00 [lb_av] 164.00 [lb_av] [facility] ([facility]) stated Body mass index (BMI) [Ratio] 24.2 kg/m2 24.2 k g/m2 [facility] [place] body weight 160 [lb_av] 160 [lb_av] [facility] ([facility], ) Body surface area Derived from formula 1.90 m2 1.90 m2 [facility] ([facility]) Body weight 158 [lb_av] 158 [lb_av] eCW1 ([facility]) Body height 69 [in_i] 69 [in_i] eCW1 ([facility]) Body mass index (BMI) [Ratio] 23.33 kg/m2 23.33 kg/m2 eCW1 ([facility]) Heart rate 60 /min 60 /min eCW1 ([facility]) Respiratory rate 18 /min 18 /min eCW1 ([facility]) Body temperature 97.9 [degF] 97.9 [degF] eCW1 ( [facility]) Systolic blood pressure 182 mm[Hg] 182 mm[Hg] e CW1 ([facility]) Diastolic blood pressure 73 mm[Hg] 73 mm[Hg] eCW1 ([facility]) Body height 69 [in_i] 69 [in_i] MEDENT ([facility], ) 5'9" Body weight 164.00 [lb_av] 164.00 [lb_av] MEDEN T ([facility]) Systolic blood pressure 159 mm[Hg] 159 mm[Hg] M EDENT ([facility], ) Body surface area Derived from formula 1.90 m2 1.90 m2 MEDENT ([facility], ) Diastolic blood pressure 77 mm[Hg] 77 mm[Hg] MEDENT ([facility]) Heart rate 66 /min 66 /min MEDENT ([facility], ) Body mass index (BMI) [Ratio] 24.2 kg/m2 24.2 k g[facility]2 [facility], [facility] [place] body weight 160 [lb_av] 160 [lb_av] MEDEN T ([facility], ) Body weight 74.390 kg 74.390 kg MEDENT ([facility], ) Body weight 164.00 [lb_av] 164.00 [lb_av] MEDEN T ([facility]) Body mass index (BMI) [Ratio] 24.2 kg/m2 24.2 k g/m2 MEDENT ([facility]) [place] body weight 160 [lb_av] 160 [lb_av] MEDEN T ([facility]) Body weight 74.390 kg 74.390 kg MEDENT ([facility]) Body height 69 [in_i] 69 [in_i] MEDENT ([facility]) 5'9" Body surface area Derived from formula 1.90 m2 1.90 m2 [facility] ([facility]) Body weight 158.8 [lb_av] 158.8 [lb_av] eCW1 ([facility]) Body height 69 [in_i] 69 [in_i] eCW1 ([facility]) Body mass index (BMI) [Ratio] 23.45 kg/m2 23.45 kg/m2 eCW1 ([facility]) Heart rate 71 /min 71 /min eCW1 ([facility]) Respiratory rate 18 /min 18 /min eCW1 ([facility]) Body temperature 98.0 [degF] 98.0 [degF] eCW1 ( [facility]) Systolic blood pressure 157 mm[Hg] 157 mm[Hg] e CW1 ([facility]) Diastolic blood pressure 72 mm[Hg] 72 mm[Hg] eCW1 ([facility]) Systolic blood pressure 115 mm[Hg] 115 mm[Hg] M EDENT ([facility]) Diastolic blood pressure 63 mm[Hg] 63 mm[Hg] MEDENT ([facility]) Heart rate 78 /min 78 /min MEDENT ([facility]) Body height 69 [in_i] 69 [in_i] MEDENT ([facility]) 5'9" Body weight 151.00 [lb_av] 151.00 [lb_av] MEDEN T ([facility]) Body mass index (BMI) [Ratio] 22.3 kg/m2 22.3 k g/m2 MEDENT ([facility]) [place] body weight 160 [lb_av] 160 [lb_av] MEDEN T ([facility]) Body weight 68.494 kg 68.494 kg [facility] ([facility]) Body surface area Derived from formula 1.83 m2 1.83 m2 [facility] ([facility]) Body weight 151.2 [lb_av] 151.2 [lb_av] eCW1 ([facility]) Body height 69 [in_i] 69 [in_i] eCW1 ([facility]) Body mass index (BMI) [Ratio] 22.33 kg/m2 22.33 kg/m2 eCW1 ([facility]) Heart rate 81 /min 81 /min eCW1 ([facility]) Respiratory rate 17 /min 17 /min eCW1 ([facility]) Body temperature 98.1 [degF] 98.1 [degF] eCW1 ( [facility]) Systolic blood pressure 114 mm[Hg] 114 mm[Hg] e CW1 ([facility]) Diastolic blood pressure 55 mm[Hg] 55 mm[Hg] eCW1 ([facility]) Systolic blood pressure 136 mm[Hg] 136 mm[Hg] M EDENT ([facility]) Diastolic blood pressure 78 mm[Hg] 78 mm[Hg] MEDENT ([facility]) Heart rate 69 /min 69 /min [facility] Body height 69 [in_i] 69 [in_i] [facility] ([facility]) 5'9" Body weight 153.50 [lb_av] 153.50 [lb_av] MEDEN T ([facility]) Body mass index (BMI) [Ratio] 22.7 kg/m2 22.7 k g/m2 [facility] ([facility]) [place] body weight 160 [lb_av] 160 [lb_av] MEDEN T ([facility]) Body weight 69.628 kg 69.628 kg [facility] ([facility]) Body surface area Derived from formula 1.85 m2 1.85 m2 [facility] ([facility]) Diastolic blood pressure 70 mm[Hg] 70 mm[Hg] [facility] Body weight 155.00 [lb_av] 155.00 [lb_av] MEDEN T ([facility]) Stated Body mass index (BMI) [Ratio] 22.9 kg/m2 22.9 k g/m2 [facility] ([facility]) [place] body weight 160 [lb_av] 160 [lb_av] MEDEN T ([facility]) Body weight 70.308 kg 70.308 kg [facility] ([facility]) Body surface area Derived from formula 1.85 m2 1.85 m2 [facility] ([facility]) Body height 69 [in_i] 69 [in_i] [facility] 5'9" Systolic blood pressure 150 mm[Hg] 150 mm[facility]Hg] [facility] Body weight 155 [lb_av] 155 [lb_av] eCW1 ([facility]) Body height 69 [in_i] 69 [in_i] eCW1 ([facility]) Body mass index (BMI) [Ratio] 22.89 kg/m2 22.89 kg/m2 W1 ([facility]) Heart rate 78 /min 78 /min eCW1 ([facility]) Respiratory rate 18 /min 18 /min eCW1 ([facility]) Body temperature 98.4 [degF] 98.4 [degF] eCW1 ( [facility]) Systolic blood pressure 109 mm[Hg] 109 mm[Hg] e CW1 ([facility]) Diastolic blood pressure 53 mm[Hg] 53 mm[Hg] eCW1 ([facility]) Systolic blood pressure 124 mm[Hg] 124 mm[Hg] [facility] Diastolic blood pressure 72 mm[Hg] 72 mm[Hg] [facility] ([facility]) Body height 69 [in_i] 69 [in_i] [facility] 5'9" Body weight 145.00 [lb_av] 145.00 [lb_av] MEDEN T ([facility]) Body mass index (BMI) [Ratio] 21.4 kg/m2 21.4 k g/m2 [facility] ([facility]) [place] body weight 160 [lb_av] 160 [lb_av] MEDEN T ([facility]) Body weight 65.772 kg 65.772 kg [facility] ([facility]) Body surface area Derived from formula 1.80 m2 1.80 m2 [facility] ([facility]) Heart rate 89 /min 89 /min W1 ([facility]) Body weight 155 [lb_av] 155 [lb_av] eCW1 ([facility]) Body height 69 [in_i] 69 [in_i] eCW1 ([facility]) Body mass index (BMI) [Ratio] 22.89 kg/m2 22.89 kg/m2 W1 ([facility]) Respiratory rate 20 /min 20 /min eCW1 ([facility]) Body temperature 98.7 [degF] 98.7 [degF] eCW1 ( [facility]) Diastolic blood pressure 42 mm[Hg] 42 mm[Hg] eCW1 ([facility]) Systolic blood pressure 91 mm[Hg] 91 mm[Hg] e CW1 ([facility]) Diastolic blood pressure 73 mm[Hg] 73 mm[Hg] MEDENT ([facility]) Systolic blood pressure 123 mm[Hg] 123 mm[Hg] M EDENT ([facility]) Body mass index (BMI) [Ratio] 21.1 kg/m2 21.1 k g/m2 [facility] ([facility]) [place] body weight 160 [lb_av] 160 [lb_av] MEDEN T ([facility]) Body weight 64.865 kg 64.865 kg [facility] ([facility]) Body surface area Derived from formula 1.79 m2 1.79 m2 [facility] ([facility]) Body height 69 [in_i] 69 [in_i] MEDENT ([facility]) 5'9" Body weight 143.00 [lb_av] 143.00 [lb_av] MEDEN T ([facility]) stated Body temperature 98.3 [degF] 98.3 [degF] eCW1 ( [facility]) Body weight 155 [lb_av] 155 [lb_av] eCW1 ([facility]) Body height 69 [in_i] 69 [in_i] eCW1 ([facility]) Body mass index (BMI) [Ratio] 22.89 kg/m2 22.89 kg/m2 eCW1 ([facility]) Heart rate 74 /min 74 /min eCW1 ([facility]) Respiratory rate 18 /min 18 /min eCW1 ([facility]) Systolic blood pressure 136 mm[Hg] 136 mm[Hg] e CW1 ([facility]) Diastolic blood pressure 65 mm[Hg] 65 mm[Hg] eCW1 ([facility]) Systolic blood pressure 110 mm[Hg] 110 mm[Hg] M EDENT ([facility]) Diastolic blood pressure 63 mm[Hg] 63 mm[Hg] MEDENT ([facility]) Body height 69 [in_i] 69 [in_i] MEDENT ([facility]) 5'9" Body weight 143.00 [lb_av] 143.00 [lb_av] MEDEN T ([facility]) Body mass index (BMI) [Ratio] 21.1 kg/m2 21.1 k g/m2 [facility] [place] body weight 160 [lb_av] 160 [lb_av] MEDEN T ([facility]) Body weight 64.865 kg 64.865 kg [facility] ([facility]) Body surface area Derived from formula 1.79 m2 1.79 m2 [facility] ([facility]) Heart rate 85 /min 85 /min [facility] Body height 69 [in_i] 69 [in_i] MEDENT ([facility], ) 5'9" [place] body weight 160 [lb_av] 160 [lb_av] MEDEN T ([facility], ) Systolic blood pressure 126 mm[Hg] 126 mm[Hg] M EDENT ([facility], ) Diastolic blood pressure 61 mm[Hg] 61 mm[Hg] MEDENT ([facility], ) Body weight 164 [lb_av] 164 [lb_av] eCW1 ([facility]) Body temperature 97.7 [degF] 97.7 [degF] eCW1 ( [facility]) Systolic blood pressure 188 mm[Hg] 188 mm[Hg] e CW1 ([facility]) Respiratory rate 20 /min 20 /min eCW1 ([facility]) Body height 69 [in_i] 69 [in_i] eCW1 ([facility]) Body mass index (BMI) [Ratio] 24.22 kg/m2 24.22 kg/m2 eCW1 ([facility]) Heart rate 90 /min 90 /min eCW1 ([facility]) Diastolic blood pressure 78 mm[Hg] 78 mm[Hg] eCW1 ([facility]) Body weight 164 [lb_av] 164 [lb_av] eCW1 ([facility]) Body height 69 [in_i] 69 [in_i] eCW1 ([facility]) Body mass index (BMI) [Ratio] 24.22 kg/m2 24.22 kg/m2 eCW1 ([facility]) Heart rate 82 /min 82 /min eCW1 ([facility]) Respiratory rate 20 /min 20 /min eCW1 ([facility]) Body temperature 98.5 [degF] 98.5 [degF] eCW1 ( [facility]) Systolic blood pressure 107 mm[Hg] 107 mm[Hg] e CW1 ([facility]) Diastolic blood pressure 58 mm[Hg] 58 mm[Hg] eCW1 ([facility]) Body weight 168 [lb_av] 168 [lb_av] eCW1 ([facility]) Body weight kg eCW1 ([facility]) Body height 69 [in_i] 69 [in_i] eCW1 ([facility]) Body mass index (BMI) [Ratio] 24.81 kg/m2 24.81 kg/m2 eCW1 ([facility]) Heart rate 88 /min 88 /min eCW1 ([facility]) Respiratory rate 22 /min 22 /min eCW1 ([facility]) Body temperature 98.2 [degF] 98.2 [degF] eCW1 ( [facility]) Systolic blood pressure 188 mm[Hg] 188 mm[Hg] e CW1 ([facility]) Diastolic blood pressure mm[Hg] eCW1 ([facility]) Body height 69 [in_i] 69 [in_i] MEDENT ([facility] 5'9" Body weight 168.00 [lb_av] 168.00 [lb_av] MEDEN T ([facility] Systolic blood pressure 107 mm[Hg] 107 mm[Hg] M EDENT ([facility] Diastolic blood pressure 69 mm[Hg] 69 mm[Hg] MEDENT ([facility] Heart rate 77 /min 77 /min MEDENT ([facility] Body mass index (BMI) [Ratio] 24.8 kg/m2 24.8 k g/m2 MEDENT ([facility] Systolic blood pressure 128 mm[Hg] 128 mm[Hg] M EDENT ([facility], ) [place] body weight 160 [lb_av] 160 [lb_av] MEDEN T ([facility], ) Diastolic blood pressure 70 mm[Hg] 70 mm[Hg] MEDENT ([facility]) Body height 69 [in_i] 69 [in_i] MEDENT ([facility]) 5'9" Body weight 168.25 [lb_av] 168.25 [lb_av] MEDEN T ([facility]) Body surface area Derived from formula 1.92 m2 1.92 m2 [facility] ([facility]) Body weight 76.318 kg 76.318 kg [facility] ([facility]) Body mass index (BMI) [Ratio] 24.8 kg/m2 24.8 k g/m2 [facility] ([facility]) Body weight kg eCW1 ([facility]) Body weight 168 [lb_av] 168 [lb_av] eCW1 ([facility]) Systolic blood pressure 107 mm[Hg] 107 mm[Hg] e CW1 ([facility]) Diastolic blood pressure 69 mm[Hg] 69 mm[Hg] eCW1 ([facility]) Body height 69 [in_i] 69 [in_i] eCW1 ([facility]) Respiratory rate 18 /min 18 /min W1 ([facility]) Body mass index (BMI) [Ratio] 24.81 kg/m2 24.81 kg/m2 W1 ([facility]) Body temperature 94.6 [degF] 94.6 [degF] eCW1 ( [facility]) Heart rate 77 /min 77 /min eCW1 ([facility]) Body weight 168 [lb_av] 168 [lb_av] eCW1 ([facility]) Body weight kg eCW1 ([facility]) Body height 69 [in_i] 69 [in_i] eCW1 ([facility]) Body mass index (BMI) [Ratio] 24.81 kg/m2 24.81 kg/m2 eCW1 ([facility]) Diastolic blood pressure 70 mm[Hg] 70 mm[Hg] MEDENT ([facility]) Systolic blood pressure 124 mm[Hg] 124 mm[Hg] M EDENT ([facility]) Body height 69 [in_i] 69 [in_i] [facility] ([facility]) 5'9" Body weight 174.00 [lb_av] 174.00 [[facility]_av] [facility] Body mass index (BMI) [Ratio] 25.7 kg/m2 25.7 k g/m2 [facility] ([facility]) [place] body weight 160 [lb_av] 160 [lb_av] [facility] Body weight 78.926 kg 78.926 kg [facility] ([facility]) Patient Treatment Plan of Care Planned Activity Planned Date Details Description Data Source (s) Bisacodyl 10 MG Rectal Suppository 12/14/2020 12:00:00 AM EDT eCW1 ([facility]) Docusate Sodium 100 MG Oral Capsule [Colace] 12/14/2020 12:00:00 AM EDT eCW1 ([facility]) Ketoconazole 20 MG/ML Topical Cream 09/16/2020 12:00:00 AM EDT eCW1 ([facility]) Ketoconazole 20 MG/ML Topical Cream 09/16/2020 12:00:00 AM EDT eCW1 ([facility]) Ketoconazole 20 MG/ML Topical Cream 09/16/2020 12:00:00 AM EDT eCW1 ([facility]) Ketoconazole 20 MG/ML Topical Cream 09/16/2020 12:00:00 AM EDT eCW1 ([facility]) Prednisone 1 MG Oral Tablet 07/27/2020 12:00:00 AM EDT eCW1 ([facility]) Prednisone 1 MG Oral Tablet 07/27/2020 12:00:00 AM EDT eCW1 ([facility]) Prednisone 1 MG Oral Tablet 07/27/2020 12:00:00 AM EDT eCW1 ([facility]) Prednisone 1 MG Oral Tablet 07/27/2020 12:00:00 AM EDT eCW1 ([facility]) Prednisone 1 MG Oral Tablet 07/27/2020 12:00:00 AM EDT eCW1 ([facility]) aripiprazole 5 MG Oral Tablet 07/06/2020 12:00:00 AM EDT eCW1 ([facility]) aripiprazole 5 MG Oral Tablet 07/06/2020 12:00:00 AM EDT eCW1 ([facility]) aripiprazole 5 MG Oral Tablet 07/06/2020 12:00:00 AM EDT eCW1 ([facility]) aripiprazole 5 MG Oral Tablet 07/06/2020 12:00:00 AM EDT eCW1 ([facility]) aripiprazole 5 MG Oral Tablet 07/06/2020 12:00:00 AM EDT eCW1 ([facility]) aripiprazole 5 MG Oral Tablet 07/06/2020 12:00:00 AM EDT eCW1 ([facility]) aripiprazole 5 MG Oral Tablet 07/06/2020 12:00:00 AM EDT eCW1 ([facility]) aripiprazole 5 MG Oral Tablet 07/06/2020 12:00:00 AM EDT eCW1 ([facility]) aripiprazole 5 MG Oral Tablet 07/06/2020 12:00:00 AM EDT eCW1 ([facility]) aripiprazole 5 MG Oral Tablet 07/06/2020 12:00:00 AM EDT eCW1 ([facility]) aripiprazole 5 MG Oral Tablet 07/06/2020 12:00:00 AM EDT eCW1 ([facility]) aripiprazole 5 MG Oral Tablet 07/06/2020 12:00:00 AM EDT eCW1 ([facility]) aripiprazole 5 MG Oral Tablet 07/06/2020 12:00:00 AM EDT eCW1 ([facility]) Misc. Devices - 03/11/2020 12:00:00 AM EST eCW1 ([facility]) Misc. Devices - 03/11/2020 12:00:00 AM EST eCW1 ([facility]) Misc. Devices - 03/11/2020 12:00:00 AM EST eCW1 ([facility]) Misc. Devices - 03/11/2020 12:00:00 AM EST eCW1 ([facility]) Misc. Devices - 03/11/2020 12:00:00 AM EST eCW1 ([facility]) Wheelchair - 02/24/2020 12:00:00 AM EST e CW1 ([facility]) Wheelchair - 02/24/2020 12:00:00 AM EST e CW1 ([facility]) Wheelchair - 02/24/2020 12:00:00 AM EST e CW1 ([facility]) Wheelchair - 02/24/2020 12:00:00 AM EST e CW1 ([facility]) Wheelchair - 02/24/2020 12:00:00 AM EST e CW1 ([facility]) Wheelchair - 02/24/2020 12:00:00 AM EST e CW1 ([facility]) Wheelchair - 02/24/2020 12:00:00 AM EST e CW1 ([facility]) Wheelchair - 02/24/2020 12:00:00 AM EST e CW1 ([facility])
[2021-02-11 19:17] LABS: HEMATOCRIT 28.1 % (42.0-52.0); HEMOGLOBIN 9.5 g/dl (13.5-17.5); MEAN CORPUSCULAR HEMOGLOBIN 30.4 pg (27.0-33.0); MEAN CORPUSCULAR HGB CONC 33.8 g/dl (32.0-36.5); MEAN CORPUSCULAR VOLUME 89.8 fl (80.0-96.0); PLATELET COUNT, AUTOMATED 160 10^3/uL (150-450); RED BLOOD COUNT 3.13 10^6/uL (4.30-6.10); WHITE BLOOD COUNT 14.5 10^3/uL (4.0-10.0)
[2021-02-11 19:42] LABS: ALBUMIN 3.2 GM/DL (3.2-5.2); BILIRUBIN,TOTAL 0.5 MG/DL (0.2-1.0); CALCIUM LEVEL 8.8 MG/DL (8.8-10.2); CREATININE FOR GFR 1.3 MG/DL (0.70-1.30); GLOMERULAR FILTRATION RATE 59.7 (>49); POTASSIUM SERUM 4.5 MEQ/L (3.5-5.1); TOTAL PROTEIN 6.2 GM/DL (6.4-8.2)
[2021-02-11] MEDS ORDERED: DEXTROSE 50% 50 ML SYRINGE IV STA (20:38)
[2021-02-11] MEDS: D5W/0.45% SODIUM CHLORIDE 1,000 ML IV SCH (20:40)
--- OUTSIDE RECORDS SUMMARY | 2021-02-11 22:54 | CCD ---
Author Author [facility] Organization [facility] Address Unknown Phone Unavailable Care Team Providers Care Mortgage Lender Name Role Phone DIDIER KEVIN MD Unavailable [...] Unavailable Shelby Kuhn MD Unavailable Unavailable Shelby Kunh MD Unavailable Unavailable Shelby Kuhn MD Unavailable [...] Unavailable Unavailable Shelby Kuhn MD Unavailable Unavailable WihtdHanna MD Unavailable Unavailable CederstrandHanna MD Unavailable Unavailable JosietranHanna stephens MD Unavailable Unavailable JosietrandHanna MD Unavailable Unavailable JosietranHanna stephens MD Unavailable Unavailable CedugotrandHanna MD Unavailable Unavailable Cederstrand, Hanna Chavez MD Unavailable Unavailable Cederstrand, Hanna Chavez MD Unavailable Unavailable Cederstrand, Hanan Chavez MD Unavailable Unavailable Cederstrand, Hanna Chavez MD Unavailable Unavailable Cederstrand, Hanna Chavez MD Unavailable Unavailable Cederstrand, Hanna Chavez MD Unavailable Unavailable Cederstrand, Hanna Chavez MD Unavailable Unavailable Cederstrand, Hanna Chavez MD Unavailable Unavailable Cederstrand, Hanna Chavez MD Unavailable Unavailable Cederstrand, Hanna Chavez MD Unavailable Unavailable Ama Malagon Unavailable Unavailable WojciechJarvis Manuel Unavailable Unavailable Pinckney[place]Jarvis Manuel Unavailable Unavailable WojciechJarvis Manuel Unavailable Unavailable [place]Jarvis Manuel Unavailable Unavailable [place], Jarvis Manuel Unavailable Unavailable [place]ney[place]Jarvis Manuelcabrera ZURITA Unavailable Unavailable [place]Jarvis Manuel Unavailable Unavailable [place]arvis Manuel Unavailable Unavailable WojciechJarvis Manuelcabrera ZURITA Unavailable Unavailable [place]arvis Manuelcabrera ZURITA Unavailable Unavailable [place]arvis Manuel Unavailable Unavailable WojciechJarvis Manuelcabrera ZURITA Unavailable Unavailable [place]arvis Manuelcabrera ZURITA Unavailable Unavailable WojciechJarvis Manuel Unavailable Unavailable [place]arvis Manuel Unavailable Unavailable [place]Jarvis Manuel Unavailable Unavailable [place]arvis Manuel Unavailable Unavailable [place]arvis Manuelcabrera ZURITA Unavailable Unavailable [place]Jarvis Manuelcabrera ZURITA Unavailable Unavailable [place]arvis Manuelcabrera ZURITA Unavailable Unavailable WojciechJarvis Manuel Unavailable Unavailable [place]arvis Manuel MD Unavailable Unavailable [place]arvis Manuel MD Unavailable Unavailable WojciechJarvis Manuel Unavailable Unavailable WojciechJarvis Manuel MD Unavailable Unavailable [place]arvis Manuel Unavailable Unavailable [place]Jarvis Manuel MD Unavailable Unavailable [place]Jarvis Manuel MD Unavailable Unavailable WojciechJarvis Manuel Unavailable Unavailable [place]arvis Manuel MD Unavailable Unavailable WojciechJarvis Manuel MD Unavailable Unavailable [place]arvis Manuel MD Unavailable Unavailable [place]arvis Manuel Unavailable Unavailable [place]arvis Manuel MD Unavailable Unavailable [place]Jarvis Manuel Unavailable Unavailable [place]arvis Manuel Unavailable Unavailable WojciechJarvis Manuel MD Unavailable Unavailable Wojciech, L Manuel MD Unavailable Unavailable Wojciech, L Manuel MD Unavailable Unavailable [place], L Manuel MD Unavailable Unavailable [place], L Manuel MD Unavailable Unavailable [place], L Manuel MD Unavailable Unavailable [place], L Manuel MD Unavailable Unavailable [place], L Manuel MD Unavailable Unavailable Wojciech, L Manuel MD Unavailable Unavailable [place], L Manuel MD Unavailable Unavailable Wojciech, L Manuel MD Unavailable Unavailable [place], L Manuel MD Unavailable Unavailable Dumont, L [...] RPA Unavailable Unavailable Ama Malagon PA Unavailable [phone] Ama Malagon Unavailable [phone] Ama Malagon PA Unavailable [phone] Ama Malagon PA Unavailable [phone] Ama Malagon Unavailable [phone] Ama Malagon Unavailable [phone] Ama Malagon Unavailable [phone] Ama Malagon Unavailable [phone] Ama Malagon Unavailable [phone] Ama Malagon Unavailable [phone] Ama Malagon Unavailable [phone] Ama Malagon Unavailable [phone] Ama Malagon Unavailable [phone] Re-disclosure Warning The records that you are [...] law may result in a fine or chcf sentence or both. A general authorization for the release of medical or other information is NOT sufficient authorization for further disc losure. Family History Family Member Name Family Member Gender Family Member Status Date o f Status Description Data Source(s) Unknown Unknown Problem MEDENT ([facility]) father Encounters Encounter Providers Location Date Indications Data Source(s ) Unknown [address] [facility] [address] 01/27/2021 12:00:00 AM EDT eCW1 ([facility]) Outpatient Attender: Alex Kuhn MD CPSCAORT-CPSCAEND 01/24 12:59:00 PM EDT - 01/24/2021 01:00:00 PM EDT E10.65 [facility] E10.65 Patient discharged. [place]patient [address] [facility] [address] 01/21/2021 12:00:00 AM EDT eCW1 ([facility]) [place] [address] [facility] [address] 01/07/2021 12:00:00 AM EDT eCW1 ([facility]) Office Visit Attender: KAREN Mcnair/Анна/Indra/Re indl 01/06/2021 11:45:00 AM EDT [facility] ([facility]) [place] [address] [facility] [address] 12/31/2020 12:00:00 AM EDT eCW1 ([facility]) (TCM) Transition of Care Visit [address] [place] [address] 12/23/2020 12:00:00 AM EDT eCW1 ([facility]) [place] [address] [facility] [address] 12/22/2020 12:00:00 AM EDT eCW1 ([facility]) Office Visit Attender: KAREN Mcnair/Анна/Indra/Re indl 12/17/2020 01:00:00 PM EDT MED[facility] ([facility]) [place] [address] [facility] [address] 12/16/2020 12:00:00 AM EDT eCW1 ([facility]) [place] [address] [facility] [address] 12/14/2020 12:00:00 AM EDT eCW1 ([facility]) Outpatient Attender: Manuel Mcnair/Анна/Indra/ Reindl 11/11/2020 08:30:00 AM EDT MEDENT ([facility]) Outpatient Attender: MATT Mcnair/Анна/Indra/Reincailin 11/01/2020 02:30:00 PM EDT MEDENT ([facility]) [place] [address] [facility] [address] 10/20/2020 12:00:00 AM EDT eCW1 ([facility]) Outpatient Attender: Jose GLEASONttender: Maurisio AVENDAÑO CPSCAORT-CPSCAEND 10/11/2020 10:38:00 AM EDT - 10/11/2020 10:39:00 AM ED T E10.65 [facility] E10.65 Patient discharged. [place] [address] [facility] [address] 09/16/2020 12:00:00 AM EDT eCW1 ([facility]) Unknown [address] [facility] [address] 09/16/2020 12:00:00 AM EDT eCW1 ([facility]) Office Visit, Est Pt., Level 3 FC [address] [place] [address] 08/24/2020 12:00:00 AM EDT eCW1 ([facility]) Unknown [address] [facility] [address] 08/17/2020 12:00:00 AM EDT eCW1 ([facility]) Unknown [address] [facility] [address] 08/17/2020 12:00:00 AM EDT eCW1 ([facility]) Outpatient Attender: Kathy Mcnair/Анна/Indra/ Reindl 08/12/2020 11:00:00 AM EDT MEDENT ([facility]) [place] [address] [facility] [address] 08/05/2020 12:00:00 AM EDT eCW1 ([facility] [place] [address] [facility] [address] 07/27/2020 12:00:00 AM EDT [facility]CW1 ([facility]) [place] [address] [facility] [address] 07/27/2020 12:00:00 AM EDT eCW1 ([facility]) Outpatient Attender: Alex Kuhn MD CPSCAORT-CPSCAEND 07/09 01:20:00 PM EDT - 07/09/2020 01:21:00 PM EDT E10.65 [facility] E10.65 Patient discharged. [place] [address] [facility] [address] 07/09/2020 12:00:00 AM EDT [facility]CW1 [facility] Outpatient Attender: Kathy Mcnair/Анна/Indra/ Talon 07/08/2020 11:45:00 AM EDT MEDENT ([facility]) [place] [address] [facility] [address] 07/06/2020 12:00:00 AM EDT eCW1 [facility]) [place] [address] [facility] [address] 07/02/2020 12:00:00 AM EDT [facility]CW1 [facility] [place] [address] [facility] [address] 06/24/2020 12:00:00 AM EDT eCW1 [facility]) [place] [address] [facility] [address] 06/09/2020 12:00:00 AM EST eCW1 [facility]) Outpatient Attender: Kathy Mcnair/Анна/Indra/ Reindl 06/07/2020 12:00:00 PM EST MEDENT ([facility]) Office Visit Attender: Florencia Mcnair/[place]/Indra/R eindl 05/27/2020 09:30:00 AM EST MEDENT ([facility]) Unknown [address] [facility] [address] 05/20/2020 12:00:00 AM EST eCW1 [facility]) (TCM) Transition of Care Visit [address] [place] [address] 05/13/2020 12:00:00 AM EST eCW1 ([facility]) Office Visit Attender: Florencia Mcnair/Анна/Indra/R eindl 05/12/2020 01:00:00 PM EST MEDENT ([facility]) Unknown [address] [facility] [address] 05/10/2020 12:00:00 AM EST eCW1 ([facility]) Unknown [address] [facility] [address] 05/10/2020 12:00:00 AM EST eCW1 ([facility]) Unknown [address] [facility] [address] 05/05/2020 12:00:00 AM EST eCW1 ([facility]) TeleMedicine Phone E/M by Phys 11-20 Min [address] [place] [address] 05/05/2020 12:00:00 AM EST eCW1 ([facility]) Unknown [address] [facility] [address] 05/05/2020 12:00:00 AM EST eCW1 ([facility]) Unknown [address] [facility] [address] 04/30/2020 12:00:00 AM EST eCW1 ([facility]) (TCM) Transition of Care Visit [address] [place] [address] 04/29/2020 12:00:00 AM EST [facility]CW1 [facility] [place] [address] [facility] [address] 04/29/2020 12:00:00 AM EST eCW1 ([facility]) Unknown [address] [facility] [place] [address] 04/28/2020 12:00:00 AM EST eCW1 ([facility]) [place] [address] [facility] [address] 04/26/2020 12:00:00 AM EST eCW1 ([facility]) Unknown [address] [facility] [place] [address] 04/23/2020 12:00:00 AM EST eCW1 ([facility]) Unknown [address] [facility] [place] [address] 04/22/2020 12:00:00 AM EST eCW1 ([facility]) [place] [address] [facility] [address] 04/21/2020 12:00:00 AM EST eCW1 ([facility]) Office Visit Attender: Florencia Mcnair/Анна/Indra/R eindl 04/12/2020 10:45:00 AM EST [facility] ([facility]) Outpatient [address] [facility] [address] 04/06/2020 12:00:00 AM EST eCW1 ([facility]) Office Visit Attender: Florencia Mcnair/Анна/Indra/R eindl 04/05/2020 08:15:00 AM EST [facility] ([facility]) [place] [address] [facility] [place] [address] 03/31/2020 12:00:00 AM EST eCW1 ([facility]) Unknown [address] [facility] [place] [address] 03/31/2020 12:00:00 AM EST eCW1 ([facility]) Unknown [address] [facility] [address] 03/29/2020 12:00:00 AM EST eCW1 ([facility]) Unknown [address] [facility] [address] 03/24/2020 12:00:00 AM EST eCW1 ([facility]) Unknown [address] [facility] [address] 03/10/2020 12:00:00 AM EST eCW1 ([facility]) Outpatient Attender: Alex Kuhn MD CPSCAORT-CPSCAEND 03/02 02:32:00 PM EST - 03/02/2020 02:33:00 PM EST E10.65 [facility] E10.65 Patient discharged. Unknown [address] [place] [address] 03/01/2020 12:00:00 AM EST eCW1 ([facility]) Outpatient Attender: Kathy Mcnair/Анна/Indra/ Talon 02/23/2020 12:30:00 PM EST MEDENT ([facility]) ([id number]) For Template Wright [address] [place] [address] 02/23/2020 12:00:00 AM EST eCW1 ([facility]) Unknown [address] [facility] [address] 02/20/2020 12:00:00 AM EST eCW1 ([facility]) Office Visit, Est Pt., Level 2 FC [address] [place] [address] 02/19/2020 12:00:00 AM EST eCW1 ([facility]) Unknown [address] [place] [address] 02/19/2020 12:00:00 AM EST eCW1 ([facility]) Office Visit Attender: MOOSE CHAPA [facility] Office 01/31 12:00:00 PM EST MEDENT ([facility] Unknown [address] [facility] [address] 02/18/2020 12:00:00 AM EST eCW1 ([facility]) Unknown [address] [facility] [address] 02/10/2020 12:00:00 AM EST eCW1 ([facility]) Outpatient [address] [facility] [address] 02/09/2020 12:00:00 AM EST eCW1 ([facility]) Unknown [address] [facility] [address] 02/04/2020 12:00:00 AM EST eCW1 ([facility]) Office Visit Attender: MOOSE CHAPA [facility] Office 05/2019 01:45:00 PM EST MEDENT ([facility] Unknown [address] [facility] [address] 01/26/2020 12:00:00 AM EDT eCW1 ([facility]) Outpatient Attender: MOOSE CHAPA [facility] Office 01/01 02:30:00 PM EDT MEDENT ([facility] Outpatient Attender: Florencia Mcnair/Анна/Indra/Zeeshan mcdowell 01/20/2020 11:30:00 AM EDT MEDENT ([facility] Outpatient [address] [facility] [address] 01/19/2020 12:00:00 AM EDT eCW1 ([facility]) ([id number]) For [facility] [address] [place] [address] 01/09/2020 12:00:00 AM EDT eCW1 ([facility]) Unknown [address] [place] [address] 01/01/2020 12:00:00 AM EDT eCW1 ([facility]) [place] [address] [facility] [place] [address] 12/30/2019 12:00:00 AM EDT eCW1 ([facility]) Outpatient Attender: Florencia Mcnair/Анна/Indra/R eindl 12/17/2019 09:00:00 AM EDT MEDENT ([facility] Immunizations Vaccine Date Status Description Data Source(s) COVID-19 VACC,MRNA(MODERNA)/PF 09/06/2020 12:00:00 AM EDT completed [facility] COVID-19 VACCINE Moderna 09/06/2020 12:00:00 AM EDT completed [facility] Vaccine Series Complete: YESThis Data wa s Submitted to [facility] Via [employer]. COVID-19 VACC,MRNA(MODERNA)/PF 08/13/2020 12:00:00 AM EDT completed [facility] COVID-19 VACCINE Moderna 08/13/2020 12:00:00 AM EDT completed [facility] Vaccine Series Complete: NOThis Data was Submitted to [facility] [employer]. Medications Medication Brand Name Start Date Product Form Dose Route Admi nistrative Instructions Pharmacy Instructions Status Indications Reaction Description Data Source(s) Bisacodyl 10 MG Rectal Suppository Bisacodyl 10 MG 12/14/2020 12:00 :00 AM EDT 1.0 {suppository_as_needed} active Bisa codyl 10 MG eCW1 ([facility]) Docusate Sodium 100 MG Oral Capsule [Colace] Colace 100 MG C olace 100 MG 12/14/2020 12:00:00 AM EDT 1.0 {capsule_as_needed} suspended Colace 100 MG eCW1 ([facility]) Bisacodyl 10 MG Rectal Suppository Bisacodyl 10 MG 12/14/2020 12:00 :00 AM EDT 1.0 {suppository_as_needed} suspended Bi sacodyl 10 MG eCW1 ([facility]) Bisacodyl 10 MG Rectal Suppository Bisacodyl 10 MG 12/14/2020 12:00 :00 AM EDT 1.0 {suppository_as_needed} suspended Bi sacodyl 10 MG eCW1 ([facility]) Bisacodyl 10 MG Rectal Suppository Bisacodyl 10 MG 12/14/2020 12:00 :00 AM EDT 1.0 {suppository_as_needed} suspended Bi sacodyl 10 MG eCW1 ([facility]) Docusate Sodium 100 MG Oral Capsule [Colace] Colace 100 MG C olace 100 MG 12/14/2020 12:00:00 AM EDT 1.0 {capsule_as_needed} active Colace 100 MG eCW1 ([facility]) Docusate Sodium 100 MG Oral Capsule [Colace] Colace 100 MG C olace 100 MG 12/14/2020 12:00:00 AM EDT 1.0 {capsule_as_needed} suspended Colace 100 MG eCW1 ([facility]) Bisacodyl 10 MG Rectal Suppository Bisacodyl 10 MG 12/14/2020 12:00 :00 AM EDT 1.0 {suppository_as_needed} suspended Bi sacodyl 10 MG eCW1 ([facility]) Bisacodyl 10 MG Rectal Suppository Bisacodyl 10 MG 12/14/2020 12:00 :00 AM EDT 1.0 {suppository_as_needed} suspended Bi sacodyl 10 MG eCW1 ([facility]) Bisacodyl 10 MG Rectal Suppository Bisacodyl 10 MG 12/14/2020 12:00 :00 AM EDT 1.0 {suppository_as_needed} suspended Bi sacodyl 10 MG eCW1 ([facility]) Docusate Sodium 100 MG Oral Capsule [Colace] Colace 100 MG C olace 100 MG 12/14/2020 12:00:00 AM EDT 1.0 {capsule_as_needed} suspended Colace 100 MG eCW1 ([facility]) Docusate Sodium 100 MG Oral Capsule [Colace] Colace 100 MG C olace 100 MG 12/14/2020 12:00:00 AM EDT 1.0 {capsule_as_needed} suspended Colace 100 MG eCW1 ([facility]) Docusate Sodium 100 MG Oral Capsule [Colace] Colace 100 MG C olace 100 MG 12/14/2020 12:00:00 AM EDT 1.0 {capsule_as_needed} suspended Colace 100 MG eCW1 ([facility]) Docusate Sodium 100 MG Oral Capsule [Colace] Colace 100 MG C olace 100 MG 12/14/2020 12:00:00 AM EDT 1.0 {capsule_as_needed} suspended Colace 100 MG eCW1 ([facility]) Bisacodyl 10 MG Rectal Suppository Bisacodyl 10 MG 12/14/2020 12:00 :00 AM EDT 1.0 {suppository_as_needed} suspended Bi sacodyl 10 MG eCW1 ([facility]) Docusate Sodium 100 MG Oral Capsule [Colace] Colace 100 MG C olace 100 MG 12/14/2020 12:00:00 AM EDT 1.0 {capsule_as_needed} suspended Colace 100 MG eCW1 ([facility]) Ketoconazole 20 MG/ML Topical Cream Ketoconazole 2 % Ketocon azole 2 % 09/16/2020 12:00:00 AM EDT suspended Keto conazole 2 % eCW1 ([facility]) Ketoconazole 20 MG/ML Topical Cream Ketoconazole 2 % Ketocon azole 2 % 09/16/2020 12:00:00 AM EDT active Ketocon azole 2 % eCW1 ([facility]) Ketoconazole 20 MG/ML Topical Cream Ketoconazole 2 % Ketocon azole 2 % 09/16/2020 12:00:00 AM EDT active Ketocon azole 2 % eCW1 ([facility]) Ketoconazole 20 MG/ML Topical Cream Ketoconazole 2 % Ketocon azole 2 % 09/16/2020 12:00:00 AM EDT suspended Keto conazole 2 % eCW1 ([facility]) Ketoconazole 20 MG/ML Topical Cream Ketoconazole 2 % Ketocon azole 2 % 09/16/2020 12:00:00 AM EDT suspended Keto conazole 2 % eCW1 ([facility]) Ketoconazole 20 MG/ML Topical Cream Ketoconazole 2 % Ketocon azole 2 % 09/16/2020 12:00:00 AM EDT suspended Keto conazole 2 % eCW1 ([facility]) Ketoconazole 20 MG/ML Topical Cream Ketoconazole 2 % Ketocon azole 2 % 09/16/2020 12:00:00 AM EDT suspended Keto conazole 2 % eCW1 ([facility]) Ketoconazole 20 MG/ML Topical Cream Ketoconazole 2 % Ketocon azole 2 % 09/16/2020 12:00:00 AM EDT suspended Keto conazole 2 % eCW1 ([facility]) Ketoconazole 20 MG/ML Topical Cream Ketoconazole 2 % Ketocon azole 2 % 09/16/2020 12:00:00 AM EDT active Ketocon azole 2 % eCW1 ([facility]) Ketoconazole 20 MG/ML Topical Cream Ketoconazole 2 % Ketocon azole 2 % 09/16/2020 12:00:00 AM EDT active Ketocon azole 2 % eCW1 ([facility]) Ketoconazole 20 MG/ML Topical Cream Ketoconazole 2 % Ketocon azole 2 % 09/16/2020 12:00:00 AM EDT suspended Keto conazole 2 % eCW1 ([facility]) Prednisone 1 MG Oral Tablet predniSONE 1 MG predniSONE 1 MG 07/27/2020 12:00:00 AM EDT active predniSONE 1 MG e CW1 ([facility]) Prednisone 1 MG Oral Tablet PredniSONE 1 MG PredniSONE 1 MG 07/27/2020 12:00:00 AM EDT active PredniSONE 1 MG e CW1 ([facility]) Prednisone 1 MG Oral Tablet predniSONE 1 MG predniSONE 1 MG 07/27/2020 12:00:00 AM EDT active predniSONE 1 MG e CW1 ([facility]) Prednisone 1 MG Oral Tablet predniSONE 1 MG predniSONE 1 MG 07/27/2020 12:00:00 AM EDT active predniSONE 1 MG e CW1 ([facility]) Prednisone 1 MG Oral Tablet PredniSONE 1 MG PredniSONE 1 MG 07/27/2020 12:00:00 AM EDT active PredniSONE 1 MG e CW1 ([facility]) Prednisone 1 MG Oral Tablet predniSONE 1 MG predniSONE 1 MG 07/27/2020 12:00:00 AM EDT active predniSONE 1 MG e CW1 ([facility]) Prednisone 1 MG Oral Tablet predniSONE 1 MG predniSONE 1 MG 07/27/2020 12:00:00 AM EDT active predniSONE 1 MG e CW1 ([facility]) Prednisone 1 MG Oral Tablet PredniSONE 1 MG PredniSONE 1 MG 07/27/2020 12:00:00 AM EDT active PredniSONE 1 MG e CW1 ([facility]) Prednisone 1 MG Oral Tablet predniSONE 1 MG predniSONE 1 MG 07/27/2020 12:00:00 AM EDT active predniSONE 1 MG e CW1 ([facility]) Prednisone 1 MG Oral Tablet PredniSONE 1 MG PredniSONE 1 MG 07/27/2020 12:00:00 AM EDT active PredniSONE 1 MG e 1 ([facility]) Prednisone 1 MG Oral Tablet predniSONE 1 MG predniSONE 1 MG 07/27/2020 12:00:00 AM EDT active predniSONE 1 MG e CW1 ([facility]) Prednisone 1 MG Oral Tablet predniSONE 1 MG predniSONE 1 MG 07/27/2020 12:00:00 AM EDT active predniSONE 1 MG e CW1 ([facility]) Prednisone 1 MG Oral Tablet predniSONE 1 MG predniSONE 1 MG 07/27/2020 12:00:00 AM EDT active predniSONE 1 MG e CW1 ([facility]) Prednisone 1 MG Oral Tablet predniSONE 1 MG predniSONE 1 MG 07/27/2020 12:00:00 AM EDT active predniSONE 1 MG e CW1 ([facility]) Prednisone 1 MG Oral Tablet PredniSONE 1 MG PredniSONE 1 MG 07/27/2020 12:00:00 AM EDT active PredniSONE 1 MG e CW1 ([facility]) Prednisone 1 MG Oral Tablet PredniSONE 1 MG PredniSONE 1 MG 07/27/2020 12:00:00 AM EDT active PredniSONE 1 MG e CW1 ([facility]) Prednisone 1 MG Oral Tablet predniSONE 1 MG predniSONE 1 MG 07/27/2020 12:00:00 AM EDT active predniSONE 1 MG e CW1 ([facility]) aripiprazole 5 MG Oral Tablet Aripiprazole 5 MG Aripiprazole 5 MG 07/06/2020 12:00:00 AM EDT 1.0 {tablet} active Ar ipiprazole 5 MG eCW1 ([facility]) aripiprazole 5 MG Oral Tablet ARIPiprazole 5 MG ARIPiprazole 5 MG 07/06/2020 12:00:00 AM EDT 1.0 {tablet} active AR IPiprazole 5 MG eCW1 ([facility]) aripiprazole 5 MG Oral Tablet ARIPiprazole 5 MG ARIPiprazole 5 MG 07/06/2020 12:00:00 AM EDT 1.0 {tablet} active AR IPiprazole 5 MG eCW1 ([facility]) aripiprazole 5 MG Oral Tablet Aripiprazole 5 MG Aripiprazole 5 MG 07/06/2020 12:00:00 AM EDT 1.0 {tablet} active Ar ipiprazole 5 MG eCW1 ([facility]) aripiprazole 5 MG Oral Tablet Aripiprazole 5 MG Aripiprazole 5 MG 07/06/2020 12:00:00 AM EDT 1.0 {tablet} active Ar ipiprazole 5 MG eCW1 ([facility]) aripiprazole 5 MG Oral Tablet ARIPiprazole 5 MG ARIPiprazole 5 MG 07/06/2020 12:00:00 AM EDT 1.0 {tablet} active AR IPiprazole 5 MG eCW1 ([facility]) aripiprazole 5 MG Oral Tablet ARIPiprazole 5 MG ARIPiprazole 5 MG 07/06/2020 12:00:00 AM EDT 1.0 {tablet} active AR IPiprazole 5 MG eCW1 ([facility]) aripiprazole 5 MG Oral Tablet Aripiprazole 5 MG Aripiprazole 5 MG 07/06/2020 12:00:00 AM EDT 1.0 {tablet} active Ar ipiprazole 5 MG eCW1 ([facility]) aripiprazole 5 MG Oral Tablet ARIPiprazole 5 MG ARIPiprazole 5 MG 07/06/2020 12:00:00 AM EDT 1.0 {tablet} active AR IPiprazole 5 MG eCW1 ([facility]) aripiprazole 5 MG Oral Tablet Aripiprazole 5 MG Aripiprazole 5 MG 07/06/2020 12:00:00 AM EDT 1.0 {tablet} active Ar ipiprazole 5 MG eCW1 ([facility]) aripiprazole 5 MG Oral Tablet Aripiprazole 5 MG Aripiprazole 5 MG 07/06/2020 12:00:00 AM EDT 1.0 {tablet} active Ar ipiprazole 5 MG eCW1 ([facility]) aripiprazole 5 MG Oral Tablet ARIPiprazole 5 MG ARIPiprazole 5 MG 07/06/2020 12:00:00 AM EDT 1.0 {tablet} active AR IPiprazole 5 MG eCW1 ([facility]) aripiprazole 5 MG Oral Tablet Aripiprazole 5 MG Aripiprazole 5 MG 07/06/2020 12:00:00 AM EDT 1.0 {tablet} active Ar ipiprazole 5 MG eCW1 ([facility]) aripiprazole 5 MG Oral Tablet ARIPiprazole 5 MG ARIPiprazole 5 MG 07/06/2020 12:00:00 AM EDT 1.0 {tablet} active AR IPiprazole 5 MG eCW1 ([facility]) aripiprazole 5 MG Oral Tablet ARIPiprazole 5 MG ARIPiprazole 5 MG 07/06/2020 12:00:00 AM EDT 1.0 {tablet} active AR IPiprazole 5 MG eCW1 ([facility]) aripiprazole 5 MG Oral Tablet ARIPiprazole 5 MG ARIPiprazole 5 MG 07/06/2020 12:00:00 AM EDT 1.0 {tablet} active AR IPiprazole 5 MG eCW1 ([facility]) aripiprazole 5 MG Oral Tablet ARIPiprazole 5 MG ARIPiprazole 5 MG 07/06/2020 12:00:00 AM EDT 1.0 {tablet} active AR IPiprazole 5 MG eCW1 ([facility]) aripiprazole 5 MG Oral Tablet ARIPiprazole 5 MG ARIPiprazole 5 MG 07/06/2020 12:00:00 AM EDT 1.0 {tablet} active AR IPiprazole 5 MG eCW1 ([facility]) aripiprazole 5 MG Oral Tablet Aripiprazole 5 MG Aripiprazole 5 MG 07/06/2020 12:00:00 AM EDT 1.0 {tablet} active Ar ipiprazole 5 MG eCW1 ([facility]) aripiprazole 5 MG Oral Tablet Aripiprazole 5 MG Aripiprazole 5 MG 07/06/2020 12:00:00 AM EDT 1.0 {tablet} active Ar ipiprazole 5 MG eCW1 ([facility]) Cephalexin 500 MG Oral Capsule Cephalexin 05/27/2020 12:00:00 AM EST ORAL completed MEDENT ([facility], ) Cephalexin 500 MG Oral Capsule [Keflex] Keflex 04/12/2020 12:00:0 0 AM EST ORAL completed MEDENT ([facility], ) Misc. Devices - UNK 03/11/2020 12:00:00 AM EST active Misc. Devices - eCW1 ([facility]) Misc. Devices - UNK 03/11/2020 12:00:00 AM EST active Misc. Devices - eCW1 ([facility]) Misc. Devices - UNK 03/11/2020 12:00:00 AM EST active Misc. Devices - eCW1 ([facility]) Misc. Devices - UNK 03/11/2020 12:00:00 AM EST active Misc. Devices - eCW1 ([facility]) Misc. Devices - UNK 03/11/2020 12:00:00 AM EST active Misc. Devices - eCW1 ([facility]) Misc. Devices - UNK 03/11/2020 12:00:00 AM EST active Misc. Devices - eCW1 ([facility]) Misc. Devices - UNK 03/11/2020 12:00:00 AM EST active Misc. Devices - eCW1 ([facility]) Misc. Devices - UNK 03/11/2020 12:00:00 AM EST active Misc. Devices - eCW1 ([facility]) Misc. Devices - UNK 03/11/2020 12:00:00 AM EST active Misc. Devices - eCW1 ([facility]) Misc. Devices - UNK 03/11/2020 12:00:00 AM EST active Misc. Devices - eCW1 ([facility]) Misc. Devices - UNK 03/11/2020 12:00:00 AM EST active Misc. Devices - eCW1 ([facility]) Misc. Devices - UNK 03/11/2020 12:00:00 AM EST active Misc. Devices - eCW1 ([facility]) Misc. Devices - UNK 03/11/2020 12:00:00 AM EST active Misc. Devices - eCW1 ([facility]) Misc. Devices - UNK 03/11/2020 12:00:00 AM EST active Misc. Devices - eCW1 ([facility]) Misc. Devices - UNK 03/11/2020 12:00:00 AM EST active Misc. Devices - eCW1 ([facility]) Misc. Devices - UNK 03/11/2020 12:00:00 AM EST active Misc. Devices - eCW1 ([facility]) Misc. Devices - UNK 03/11/2020 12:00:00 AM EST active Misc. Devices - eCW1 ([facility]) Misc. Devices - UNK 03/11/2020 12:00:00 AM EST active Misc. Devices - eCW1 ([facility]) Misc. Devices - UNK 03/11/2020 12:00:00 AM EST active Misc. Devices - eCW1 ([facility]) Misc. Devices - UNK 03/11/2020 12:00:00 AM EST active Misc. Devices - eCW1 ([facility]) Wheelchair - Wheelchair - 02/24/2020 12:00:00 AM EST active Wheelchair - eCW1 ([facility]) Wheelchair - Wheelchair - 02/24/2020 12:00:00 AM EST active Wheelchair - eCW1 ([facility]) Wheelchair - Wheelchair - 02/24/2020 12:00:00 AM EST active Wheelchair - eCW1 ([facility]) Wheelchair - Wheelchair - 02/24/2020 12:00:00 AM EST active Wheelchair - eCW1 ([facility]) Wheelchair - Wheelchair - 02/24/2020 12:00:00 AM EST active Wheelchair - eCW1 ([facility]) Wheelchair - Wheelchair - 02/24/2020 12:00:00 AM EST active Wheelchair - eCW1 ([facility]) Wheelchair - Wheelchair - 02/24/2020 12:00:00 AM EST active Wheelchair - eCW1 ([facility]) Wheelchair - Wheelchair - 02/24/2020 12:00:00 AM EST active Wheelchair - eCW1 ([facility]) Wheelchair - Wheelchair - 02/24/2020 12:00:00 AM EST active Wheelchair - eCW1 ([facility]) Wheelchair - Wheelchair - 02/24/2020 12:00:00 AM EST active Wheelchair - eCW1 ([facility]) Wheelchair - Wheelchair - 02/24/2020 12:00:00 AM EST active Wheelchair - eCW1 ([facility]) Wheelchair - Wheelchair - 02/24/2020 12:00:00 AM EST active Wheelchair - eCW1 ([facility]) Wheelchair - Wheelchair - 02/24/2020 12:00:00 AM EST active Wheelchair - eCW1 ([facility]) Wheelchair - Wheelchair - 02/24/2020 12:00:00 AM EST active Wheelchair - eCW1 ([facility]) Wheelchair - Wheelchair - 02/24/2020 12:00:00 AM EST active Wheelchair - eCW1 ([facility]) Wheelchair - Wheelchair - 02/24/2020 12:00:00 AM EST active Wheelchair - eCW1 ([facility]) Wheelchair - Wheelchair - 02/24/2020 12:00:00 AM EST active Wheelchair - eCW1 ([facility]) Wheelchair - Wheelchair - 02/24/2020 12:00:00 AM EST active Wheelchair - eCW1 ([facility]) Wheelchair - Wheelchair - 02/24/2020 12:00:00 AM EST active Wheelchair - eCW1 ([facility]) Wheelchair - Wheelchair - 02/24/2020 12:00:00 AM EST active Wheelchair - eCW1 ([facility]) Wheelchair - Wheelchair - 02/24/2020 12:00:00 AM EST active Wheelchair - eCW1 ([facility]) Wheelchair - Wheelchair - 02/24/2020 12:00:00 AM EST active Wheelchair - eCW1 ([facility]) Wheelchair - Wheelchair - 02/24/2020 12:00:00 AM EST active Wheelchair - eCW1 ([facility]) Cephalexin 500 MG Oral Capsule Cephalexin 02/02/2020 12:00:00 AM EST ORAL active MED[facility] ([facility] tramadol hydrochloride 50 MG Oral Tablet Tramadol HCL 02/02/2020 12:00:00 AM EST active MEDENT ([facility] Insurance Providers Payer name Policy type / Coverage type Policy ID Covered green party ID Covered green party's relationship to wright Policy Wright Plan Information COMPUTER SCIENCE GABRIEL RHONDA UNAVAILABLE SELF UNAVAILABLE PERSONAL PAY UNAVAILABLE 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 GABRIEL RHONDA [id number] SELF [id number] MEDICARE [id number] SELF [id number] A MEDICARE PART A [id number] Patient [id number] MEDICARE [id number] SP [id number] A MEDICARE A [id number] Self [id number] A MEDICARE [id number] SP [id number] A MEDICAID M [id number] Self [id number] MEDICAID [id number] SP [id number] MEDICAID [id number] SP [id number] EMEDNY [id number] SP [id number] [facility] [id number] SP [id number] [facility] [id number] SP [id number] MEDICARE [id number] SP [id number] MEDICARE COMPLETE [id number] SP [id number] MEDICARE COMPLETE [id number] SP [id number] WELLCARE [id number] SP [id number] WELLCARE [id number] SP [id number] WELLCARE O [id number] S [id number] WELLCARE [id number] S [id number] WELLCARE O [id number] S [id number] MEDICARE [id number] SP [id number] MEDICAID [id number] SP [id number] MEDICARE C [id number] S [id number] WELLCARE [id number] S [id number] MEDICARE [id number] S [id number] WELLCARE [id number] S [id number] MEDICARE -RECURRING [id number] 18 [id number] MEDICAID -RECURRING [id number] ANSI-Medicaid [id number] ANSI-Medicare Part B [id number] ANSI-Medicaid [id number] ANSI-Medicare Part B [id number] ANSI-Medicare Part B [id number] ANSI-Medicaid [id number] ANSI-Medicare Part B [id number] ANSI-Medicaid [id number] ANSI-Medicaid [id number] ANSI-Medicare Part B [id number] ANSI-Medicaid [id number] ANSI-Medicare Part B [id number] ANSI-Medicaid [id number] ANSI-Medicare Part B [id number] ANSI-Medicaid [id number] ANSI-Medicare Part B [id number] ANSI-Medicare Part B [id number] ANSI-Medicaid [id number] ANSI-Medicare Part B [id number] ANSI-Medicaid [id number] ANSI-Medicare Part B [id number] ANSI-Medicaid [id number] ANSI-Medicare Part B [id number] ANSI-Medicaid [id number] ANSI-Medicaid [id number] ANSI-Medicare Part B [id number] ANSI-Medicare Part B [id number] ANSI-Medicaid [id number] MEDICARE -RECURRING [id number] 18 [id number] ANSI-Medicaid [id number] ANSI-Medicare Part B [id number] ANSI-Medicaid [id number] ANSI-Medicare Part B [id number] ANSI-Medicare Part B [id number] ANSI-Medicaid [id number] Medicaid [place] Medigap Part B [id number] Self [id number] Medicare [place] Medicare Primary [id number] Self [id number] ANSI-Medicare Part B [id number] ANSI-Medicaid [id number] ANSI-Medicaid [id number] ANSI-Medicare Part B [id number] ANSI-Medicaid [id number] ANSI-Medicare Part B [id number] ANSI-Medicare Part B [id number] ANSI-Medicaid [id number] ANSI-Medicare Part B [id number] ANSI-Medicaid [id number] MEDICARE [id number] ANSI-Medicare Part B [id number] ANSI-Medicaid [id number] ANSI-Medicaid [id number] ANSI-Medicare Part B [id number] ANSI-Medicare Part B [id number] ANSI-Medicaid [id number] ANSI-Medicaid [id number] ANSI-Medicare Part B [id number] ANSI-Medicaid [id number] ANSI-Medicare Part B [id number] ANSI-Medicare Part B [id number] ANSI-Medicaid [id number] ANSI-Medicaid [id number] ANSI-Medicare Part B [id number] ANSI-Medicaid [id number] ANSI-Medicare Part B [id number] ANSI-Medicaid [id number] ANSI-Medicare Part B [id number] ANSI-Medicaid [id number] ANSI-Medicare Part B [id number] ANSI-Medicaid [id number] ANSI-Medicare Part B [id number] ANSI-Medicare Part B [id number] ANSI-Medicaid [id number] ANSI-Medicare Part B [id number] ANSI-Medicaid [id number] MEDICARE C [id number] S [id number] A [facility] MEDICARE PART B C [id number] S [id number] Medicaid [facility] Part B [id number] Self [id number] [place] Medicare Primary [id number] [facility] C [id number] S [id number] Medicaid [facility] Part B [id number] Self [id number] Medicare [place]/[facility] Medicare Primary [id number] Self [id number] Medicaid [place] [facility] Part B [id number] Self [id number] Medicare [facility] Medicare Primary [id number] Self [id number] MEDICAID [id number] SP [id number] MEDICAID [id number] SP [id number] MEDICAID -O/P [id number] 18 [id number] MEDICARE -O/P [id number] OTHER WORKERS COMPENSATION [id number] SP [id number] MEDICAID -CLINIC [id number] MEDICARE -CLINIC [id number] WORKMANS COMPENSATION -O/ [id number] 18 [id number] MEDICAID -PHYSICIAN [id number] WORKMANS COMPENSATION -O/P [id number] 18 [id number] MEDICARE -PHYSICIAN [id number] 18 [id number] [facility] MEDICAID [id number] SP [id number] MEDICARE COMPLETE [id number] SP [id number] MEDICARE [id number] SP [id number] [facility] MEDICARE [id number] S [id number] MEDICAID [id number] S [id number] MEDICARE COMPLETE [id number] SP [id number] EMEDNY [id number] SP [id number] MEDICARE COMPLETE-UHC O [id number] S [id number] MEDICAID M [id number] S [id number] WELLCARE [id number] SP [id number] MEDICARE COMPLETE-UH O [id number] S [id number] [facility] MEDICARE [id number] S [id number] Problems, Conditions, and Diagnoses Code Display Name Description Problem Type Effective Dates Data Source(s) Z79.4 manager intermediate (current) use of insulin SECURITY SME (CU RRENT) USE OF INSULIN Diagnosis 01/24/2021 12:59:00 PM EDT [facility] Z96.41 Presence of insulin pump (external) (int ernal) PRESENCE OF INSULIN PUMP (EXTERNAL) (INTERNAL) Diagnosis 01/24/2021 12:59:00 PM EDT [facility] E10.65 Type 1 diabetes mellitus with hyperglyce sera TYPE 1 DIABETES MELLITUS WITH HYPERGLYCEMIA Diagnosis 01/24/2021 12:59:00 PM EDT [facility] S88.912A 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, level unspecified, initial encounter COMPLETE TRAUMATIC AMPUTATION OF L LOW LEG, LEVEL UNSP , INIT Diagnosis 10/11/2020 10:38:00 AM EDT [facility] S88.911A Complete traumatic amputatio n of right lower leg, level unspecified, initial encounter COMPLETE TRAUMATIC AMPUTATION OF R LOW LEG, LEVEL UNSP , INIT Diagnosis 10/11/2020 10:38:00 AM EDT [facility] E78.5 Hyperlipidemia, unspecified HYPERLIPIDEMIA, UNSPECIFIE D Diagnosis 10/11/2020 10:38:00 AM EDT [facility] E27.40 Unspecified adrenocortical insufficiency UNSPECIFIED ADRENOCORTICAL INSUFFICIENCY Diagnosis 10/11/2020 10:38:00 AM EDT [facility] M86.9 [id number] Osteomyelitis of other site, unspecified type Problem 01/07/2021 12:00:00 AM EDT eCW1 ([facility]) E16.1 Hypoglycemia Hypoglycemia Problem 01/06/2021 12:00:00 A M EDT MEDENT ([facility], ) E11.59 Peripheral vascular disorder due to diab etes mellitus Peripheral vascular disorder due to diabetes mellitus Problem 01/06/2021 12:00:00 AM ED T [facility] ([facility], ) T81.30xA Traumatic wound dehiscence Traumatic wound dehiscence Problem 12/17/2020 12:00:00 AM EDT [facility] ([facility], ) 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 Problem 12/17/2020 12:00:00 AM EDT [facility] ([facility], ) D61.818 [id number] Pancytopenia Problem 12/16/2020 12:00:00 AM EDT eCW1 ([facility]) S88.111A [id number] Below-knee amputation of right lower extr emity Problem 04/06/2020 12:00:00 AM EST eCW1 ([facility]) Z89.511 [id number] Acquired absence of right leg below knee Problem 03/11/2020 12:00:00 AM EST eCW1 ([facility]) Z89.512 [id number] 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 Problem 03/11/2020 12:00:00 AM EST eCW1 ([facility]) S88.119A [id number] Amputation below knee Problem 02/24/2020 12: 00:00 AM EST eCW1 ([facility]) M86.9 [id number] Osteomyelitis of right foot, unspecif ied type Problem 02/19/2020 12:00:00 AM EST eCW1 ([facility]) [id number] O/E - Amputated left below knee O/E - Amputated left below knee Problem 01/26/2020 12:00:00 AM EDT [facility] ([facility] [id number] Pain in limb Pain in limb Problem 01/26/2020 12:00:00 A M EDT [facility] ([facility] [id number] Gangrenous disorder Gangrenous disorder Problem 1 12:00:00 AM EDT [facility] ([facility] [id number] Pressure ulcer of right foot stage 4 Pre ssure ulcer of right foot stage 4 Problem 01/26/2020 12:00:00 AM EDT [facility] ([facility] [id number] Type 2 diabetes mellitus with ulcer Type 2 diabetes mellitus with ulcer Problem 01/26/2020 12:00:00 AM EDT [facility] ([facility] L97.514 [id number] 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 Problem 12/31/2019 12:00:00 AM EDT [facility] ([facility]) E11.621 [id number] Type 2 diabetes mellitus with foot ulcer Problem 12/31/2019 12:00:00 AM [place] [address] ([facility]) Surgeries/Procedures Procedure Description Date Indications Data Source(s) Hospital outpatient clinic visit for assessment and ma nagement of a patient Hospital Outpatient Clinic Visit 01/24/2021 12:00:00 AM Health system GLUC BLD GLUC MNTR DEV CLEARED FDA SPEC HOME USE GLUCOSE BLO OD TEST 01/24/2021 12:00:00 AM Health system COLLECTION VENOUS BLOOD VENIPUNCTURE ROUTINE VENIPUNCTURE 12:00:00 AM Health system HEMOGLOBIN GLYCOSYLATED A1C GLYCOSYLATED HEMOGLOBIN TEST 12:00:00 AM Health system LIPID PANEL LIPID PANEL 01/24/2021 12:00:00 AM [facility] BASIC METABOLIC PANEL CALCIUM TOTAL METABOLIC PANEL TOTAL CA 01/24/2021 12:00:00 AM Health system Debridement Skin, Subcutaneous Tissue & Muscle 021 12:00:00 AM [facility] OFFICE OUTPATIENT VISIT 15 MINUTES 01/06/2021 12:00:00 AM ED[facility] AMP LEG THRU TIBIA&FIBULA RE-AMPUTATION 12/08/2020 12: 00:00 AM EDT [facility] ([facility], ) OFFICE OUTPATIENT VISIT 15 MINUTES 11/11/2020 12:00:00 AM EDT [facility] ([facility], ) OFFICE OUTPATIENT VISIT 15 MINUTES 11/01/2020 12:00:00 AM EDT [facility] ([facility], ) COMPREHENSIVE METABOLIC PANEL COMPREHEN METABOLIC PANEL 09/30 12:00:00 AM Health system OFFICE OUTPATIENT VISIT 15 MINUTES 08/12/2020 12:00:00 AM EDT [facility] ([facility], ) OFFICE OUTPATIENT VISIT 15 MINUTES 07/08/2020 12:00:00 AM EDT [facility] ([facility], ) OFFICE OUTPATIENT VISIT 15 MINUTES 06/07/2020 12:00:00 AM EST [facility] ([facility]) Amputation Below Knee 03/03/2020 12:00:00 AM EST [facility] ([facility]) FINE NEEDLE ASPIRATION W/O IMAGING GUIDANCE 02/23/2020 12:00:00 AM EST eCW1 ([facility]) Amputation Metatarsal W/Toe 01/28/2020 12:00:00 AM EDT [facility] ([facility] FINE NEEDLE ASPIRATION W/O IMAGING GUIDANCE 01/19/2020 12:00:00 AM EDT eCW1 ([facility]) FINE NEEDLE ASPIRATION W/O IMAGING GUIDANCE 01/09/2020 12:00:00 AM EDT eCW1 ([facility]) Revascularization,Endovascular,Transluminal Angioplasty 12/31/2019 12:00:00 AM EDT [facility] ([facility]) REVSC OPN/PRQ TIB/FABIENNE W/ANGIOPLASTY UNI 12/31/2019 12 :00:00 AM EDT [facility] ([facility]) REVSC OPN/PRQ TIB/FABIENNE W/ANGIOPLASTY UNI EA VSL 2019 12:00:00 AM EDT [facility] ([facility]) Moderate Sedation Services; Same Phys Intl 15 Mins; PT >= 5 Years 12/31/2019 12:00:00 AM EDT [facility] ([facility]) Results ID Date Data Source [id number] 01/24/2021 05:41:00 PM EDT [facility] Name Value Range Interpretation Code Description Data Mireille rce(s) Supporting Document(s) Hemoglobin A1C % Less than 5.7% Above high normal [facility] HBA1C: Normal: Less than 5.7% Prediabetes: 5.7% to 6.4% Diabetes: 6.5% or higher HA1C % vs Estimated Average Glucose (eAG) % eAG % eAG 6% 126 mg/dL 10% 240 mg/dL 7% 154 mg/dL 11% 269 mg/dL 8% 183 mg/dL 12% 298 mg/dL 9% 212 mg/dL Reference: [employer], 2017 ID Date Data Source [id number] 01/24/2021 05:34:00 PM EDT [facility] Name Value Range Interpretation Code Description Data Mireille rce(s) Supporting Document(s) Sodium 137 mmol/L 137-145 Normal (applies to non-numeric resul ts) [facility] Potassium 3.5-5.1 Normal (applies to non-numeric resul ts) [facility] Chloride 107 mmol/L 98-112 Normal (applies to non-numeric resul ts) [facility] Carbon Dioxide CO2 22.0-33.0 Normal (applies to non-numer ic results) [facility] Anion Gap 4.0-11.0 Normal (applies to non-numeric resul ts) [facility] BUN 16 mg/dL 9-20 Normal (applies to non-numeric resul ts) [facility] Creatinine 0.80-1.50 Normal (applies to non-numeric resul ts) [facility] GFR 55 mL/min >60 Below low normal [facility] Result based on MDRD formula. Glucose Level 107 mg/dL 74-99 Above high normal [facility] The reference range is only applicable w hen fasting. Calcium-Uncorrected 8.4-10.2 Normal (applies to non-nume nelson results) [facility] Corrected Calcium 8.4-10.2 Normal (applies to non-numeri c results) [facility] ID Date Data Source [id number] 01/24/2021 05:34:00 PM EDT [facility] Name Value Range Interpretation Code Description Data Mireille rce(s) Supporting Document(s) Triglycerides 52 mg/dL 0-150 Normal (applies to non-numeric re sults) [facility] Cholesterol 119 mg/dL 0-200 Normal (applies to non-numeric resu lts) [facility] LDL Cholesterol,Direct 50 mg/dL <100 Normal (applies to non-n umeric results) [facility] LDL Interpretative Data Optimal <100 (mg/dL) Near optimal 100-129 (mg/dL) Borderline High 130-159 (mg/dL) High 160-189 (mg/dL) Very High >190 (mg/dL) HDL Cholesterol 63 mg/dL 40-60 Above high normal [facility] CHOL/HDL Ratio Normal (applies to non-numeric r esults) [facility] NATIONAL CHOLESTEROL [facility], [...] Average 13.5 11.0 ID Date Data Source [id number] 01/10/2021 06:21:00 AM EDT [facility] Name Value Range Interpretation Code Description Data Mireille rce(s) Supporting Document(s) SARS coronavirus 2 RNA [Presence] in Res piratory specimen by DAILY with probe detection NEGATIVE [facility] This lab was ordered by [facility] a nd reported by [facility]. ID Date Data Source [id number] 01/02/2021 02:12:00 PM EDT [facility] Name Value Range Interpretation Code Description Data Mireille rce(s) Supporting Document(s) SARS-CoV-2 (COVID 19) NEGATIVE - SARS-CoV-2 (COVID19) [facility] This lab was ordered by [facility] a nd reported by [facility]. ID Date Data Source [id number] 12/19/2020 11:07:00 PM EDT [facility] Name Value Range Interpretation Code Description Data Mireille rce(s) Supporting Document(s) SARS coronavirus 2 RNA [Presence] in Res piratory specimen by DAILY with probe detection NEGATIVE [facility] This lab was ordered by [facility] a nd reported by [facility]. ID Date Data Source [id number] 12/06/2020 12:21:[address] [facility] Name Value Range Interpretation Code Description Data Mireille rce(s) Supporting Document(s) SARS coronavirus 2 RNA [Presence] in Res piratory specimen by DAILY with probe detection NEGATIVE [facility] This lab was ordered by [facility] a nd reported by [facility]. ID Date Data Source [id number] 10/11/2020 01:58:00 PM EDT [facility] Name Value Range Interpretation Code Description Data Mireille rce(s) Supporting Document(s) Hemoglobin A1C % Less than 5.7% Above high normal [facility] HBA1C: Normal: Less than 5.7% Prediabetes: 5.7% to 6.4% Diabetes: 6.5% or higher HA1C % vs Estimated Average Glucose (eAG) % eAG % eAG 6% 126 mg/dL 10% 240 mg/dL 7% 154 mg/dL 11% 269 mg/dL 8% 183 mg/dL 12% 298 mg/dL 9% 212 mg/dL Reference: [employer], 2017 ID Date Data Source [id number] 10/11/2020 01:21:00 PM EDT [facility] Name Value Range Interpretation Code Description Data Mireille rce(s) Supporting Document(s) Sodium 137 mmol/L 137-145 Normal (applies to non-numeric resul ts) [facility] Potassium 3.5-5.1 Normal (applies to non-numeric resul ts) [facility] Chloride 102 mmol/L 98-112 Normal (applies to non-numeric resul ts) [facility] Carbon Dioxide CO2 22.0-33.0 Normal (applies to non-numer ic results) [facility] Anion Gap 4.0-11.0 Normal (applies to non-numeric resul ts) [facility] BUN 16 mg/dL 9-20 Normal (applies to non-numeric resul ts) [facility] Creatinine 0.80-1.50 Normal (applies to non-numeric resul ts) [facility] GFR 66 mL/min >60 Normal (applies to non-numeric resul ts) [facility] Result based on MDRD formula. Glucose Level 194 mg/dL 74-99 Above high normal [facility] The reference range is only applicable w hen fasting. Calcium-Uncorrected 8.4-10.2 Normal (applies to non-nume nelson results) [facility] Corrected Calcium 8.4-10.2 Normal (applies to non-numeri c results) [facility] Bilirubin,Total 0.2-1.3 Normal (applies to non-numeric results) [facility] SGOT(AST) 42 U/L 17-59 Normal (applies to non-numeric resul ts) [facility] SGPT(ALT) 57 U/L 21-72 Normal (applies to non-numeric resul ts) [facility] Alkaline Phosphatase 89 U/L 38-126 Normal (applies to non-num gage results) [facility] can increase Alkaline Phosp le vels up to 2 times the normal adult value. Normal values for children and adolescents are 2 to 3 times the normal adult value. Total Protein 6.3-8.2 Normal (applies to non-numeric re sults) [facility] Albumin 3.5-5.0 Normal (applies to non-numeric resul ts) [facility] ID Date Data Source [id number] 08/14/2020 10:59:00 PM EDT [facility] Name Value Range Interpretation Code Description Data Mireille rce(s) Supporting Document(s) SARS-CoV-2 (COVID 19) NEGATIVE - SARS-CoV-2 (COVID19) [facility] This lab was ordered by [facility] a nd reported by [facility]. ID Date Data Source [id number] 07/09/2020 03:28:00 PM EDT [facility] Name Value Range Interpretation Code Description Data Mireille rce(s) Supporting Document(s) Hemoglobin A1C % Less than 5.7% Above high normal [facility] HBA1C: Normal: Less than 5.7% Prediabetes: 5.7% to 6.4% Diabetes: 6.5% or higher HA1C % vs Estimated Average Glucose (eAG) % eAG % eAG 6% 126 mg/dL 10% 240 mg/dL 7% 154 mg/dL 11% 269 mg/dL 8% 183 mg/dL 12% 298 mg/dL 9% 212 mg/dL Reference: [employer], 2017 ID Date Data Source [id number] 07/09/2020 03:23:00 PM EDT [facility] Name Value Range Interpretation Code Description Data Mireille rce(s) Supporting Document(s) Sodium 136 mmol/L 137-145 Below low normal [facility] Potassium 3.5-5.1 Normal (applies to non-numeric resul ts) [facility] Chloride 101 mmol/L 98-112 Normal (applies to non-numeric resul ts) [facility] Carbon Dioxide CO2 22.0-33.0 Normal (applies to non-numer ic results) [facility] Anion Gap 4.0-11.0 Normal (applies to non-numeric resul ts) [facility] BUN 17 mg/dL 9-20 Normal (applies to non-numeric resul ts) [facility] Creatinine 0.80-1.50 Normal (applies to non-numeric resul ts) [facility] GFR 57 mL/min >60 Below low normal [facility] Result based on MDRD formula. Glucose Level 296 mg/dL 74-99 Above high normal [facility] The reference range is only applicable w hen fasting. Calcium-Uncorrected 8.4-10.2 Normal (applies to non-nume nelson results) [facility] Corrected Calcium 8.4-10.2 Normal (applies to non-numeri c results) [facility] ID Date Data Source [id number] 05/02/2020 02:06:00 AM EST [facility] Name Value Range Interpretation Code Description Data Mireille rce(s) Supporting Document(s) SARS coronavirus 2 RNA [Presence] in Res piratory specimen by DAILY with probe detection POSITIVE [facility] This lab was ordered by [facility] a nd reported by [facility]. ID Date Data Source [id number] 04/29/2020 10:04:00 AM EST [facility] Name Value Range Interpretation Code Description Data Mireille rce(s) Supporting Document(s) SARS COVID ANTIGEN POSITIVE [facility] This lab was ordered by [facility] a nd reported by [facility]. ID Date Data Source [id number] COVID AG (Point of Care) 04/29/2020 12:00:00 AM EST eC W1 ([facility]) Name Value Range Interpretation Code Description Data Mireille rce(s) Supporting Document(s) POSITIVE NEGATIVE [facility] COVID ANTIGEN eCW1 ([facility]) ID Date Data Source [id number] 04/12/2020 08:23:00 PM EST [facility] Name Value Range Interpretation Code Description Data Mireille rce(s) Supporting Document(s) SARS-CoV-2 (COVID 19) NEGATIVE - SARS-CoV-2 (COVID19) [facility] This lab was ordered by [facility] a nd reported by [facility]. ID Date Data Source [id number] 03/16/2020 05:11:00 AM EST [facility] Name Value Range Interpretation Code Description Data Mireille rce(s) Supporting Document(s) Hemoglobin A1C % Less than 5.7% Above high normal [facility] HBA1C: Normal: Less than 5.7% Prediabetes: 5.7% to 6.4% Diabetes: 6.5% or higher HA1C % vs Estimated Average Glucose (eAG) % eAG % eAG 6% 126 mg/dL 10% 240 mg/dL 7% 154 mg/dL 11% 269 mg/dL 8% 183 mg/dL 12% 298 mg/dL 9% 212 mg/dL Reference: [employer], 2017 ID Date Data Source [id number] 02/28/2020 11:00:00 AM EST [facility] Name Value Range Interpretation Code Description Data Mireille rce(s) Supporting Document(s) SARS coronavirus [address] [facility] This lab was ordered by [facility] and reported by [facility]. ID Date Data Source [id number] 01/28/2020 04:53:00 PM EDT [facility] ([facility] Name Value Range Interpretation Code Description Data Mireille rce(s) Supporting Document(s) Glucose [Mass/volume] in Capillary blood by Glucometer 154 mg/dL 80-115 Above high normal [facility] ([facility] ID Date Data Source [id number] 01/28/2020 04:09:00 PM EDT [facility] ([facility] Name Value Range Interpretation Code [...] An area of gangrenous changes is noted. Manager Simulation sections are submitted in two after decalcification. -OA 01/29/[id number] Signed SALINA SAUNDERS MD 01/30/2020956 ID Date Data Source [id number] 01/28/2020 11:26:00 AM EDT [facility] ([facility] Name Value Range Interpretation Code Description Data Mireille rce(s) Supporting Document(s) Glucose [Mass/volume] in Capillary blood by Glucometer 91 mg/dL 80- 115 [facility] ([facility] ID Date Data Source [id number] 12/31/2019 11:17:00 AM EDT [facility] ([facility], ) Name Value Range Interpretation Code Description Data Mireille rce(s) Supporting Document(s) Glucose [Mass/volume] in Capillary blood by Glucometer 142 mg/dL 80-115 Above high normal [facility] ([facility]) ID Date Data Source [id number] 12/31/2019 08:51[facility] Name Value Range Interpretation Code Description Data Mireille rce(s) Supporting Document(s) Glucose [Mass/volume] in Capillary blood by Glucometer 131 mg/dL 80-115 Above high normal [facility] ([facility]) ID Date Data Source [id number] 12/17/2019 10:05:[facility] Name Value Range Interpretation Code Description Data Mireille rce(s) Supporting Document(s) Glucose, Fasting 158 mg/dL 70-100 Above high normal [facility] ([facility]) Blood Urea Nitrogen 15 mg/dL 7-18 Normal (applies to non-nume nelson results) [facility] ([facility]) Creatinine For GFR 1.36 mg/dL 0.70-1.30 Above high normal [facility] ([facility]) Glomerular Filtration Rate 56.9 Normal (applies to n on-numeric results) [facility]) <content>Units are mL/min/1.73 m2</content>
<content></content>
<content>Chronic Kidney Disease Staging per NKF:</content>
<content></content>
<content>Stage I & II GFR >=60 Normal to Mildly Decreased</content>
<content>Stage III GFR 30- 59 Moderately Decreased</content>
<content>Stage IV GFR 15-29 Severely Decreased</content>
<content>Stage V GFR <15 Very Little GFR Left</content>
<content>ESRD GFR <[address] [employer]</content>
<content></content> Sodium Level 139 meq/L 136-145 Normal (applies to non-numeric res ults) [facility] ([facility]) Chloride Level 105 meq/L 98-107 Normal (applies to non-numeric r esults) [facility] ([facility]) Carbon Dioxide Level 27 meq/L 21-32 Normal (applies to non-num gage results) [facility]) Potassium Serum 4.6 meq/L 3.5-5.1 Normal (applies to non-numeric results) [facility] ([facility]) Calcium Level 9.3 mg/dL 8.8-10.2 Normal (applies to non-numeric re sults) [facility]) Anion Gap 7 meq/L 8-16 Below low normal [facility] ( [facility]) ID Date Data Source [id number] 12/17/2019 10:05:00 AM EDT [facility]) Name Value Range Interpretation Code Description Data Mireille rce(s) Supporting Document(s) White Blood Count 6.8 10 4.0-10.0 Normal (applies to non-numeri c results) [facility] ([facility]) Red Blood Count 3.47 10 4.30-6.10 Below low normal [facility] ([facility]) Hemoglobin 11.2 g/dL 13.5-17.[address] [facility]) Hematocrit 32.8 % 42.0-52.0 Below low normal [facility] ( [facility]) Mean Corpuscular Volume 94.5 fl 80.0-96.0 Normal ( applies to non-numeric results) [facility]) Mean Corpuscular Hemoglobin 32.3 pg 27.0-33.0 Norm al (applies to non-numeric results) [facility]) Mean Corpuscular HGB Conc 34.1 g/dL 32.0-36.5 Normal (applies to non-numeric results) [facility]) Red Cell Distribution Width 12.1 % 11.5-14.5 Norm al (applies to non-numeric results) [facility]) Nucleated Red Blood Cell % 0.0 % 0-0 Normal (applies to n on-numeric results) [facility]) Platelet Count, Automated 214 10 150-450 Normal (applies to non-numeric results) [facility] ([facility], ) Procedure Social History Code Duration Value Status Description Data Source(s ) Smoking 01/21/2021 12:00:00 AM EDT Former Smoker completed Former Smoker eCW1 ([facility]) Smoking 01/21/2021 12:00:00 AM EDT Former Smoker completed Former Smoker eCW1 ([facility]) Smoking 12/23/2020 12:00:00 AM EDT Former Smoker completed Former Smoker eCW1 ([facility]) Smoking 12/23/2020 12:00:00 AM EDT Former Smoker completed Former Smoker eCW1 ([facility]) Smoking 12/23/2020 12:00:00 AM EDT Former Smoker completed Former Smoker eCW1 ([facility]) Smoking 12/16/2020 12:00:00 AM EDT Former Smoker completed Former Smoker eCW1 ([facility]) Smoking 12/16/2020 12:00:00 AM EDT Former Smoker completed Former Smoker eCW1 ([facility]) Smoking 08/24/2020 12:00:00 AM EDT Former Smoker completed Former Smoker eCW1 ([facility]) Smoking 08/24/2020 12:00:00 AM EDT Former Smoker completed Former Smoker eCW1 ([facility]) Smoking 08/24/2020 12:00:00 AM EDT Former Smoker completed Former Smoker eCW1 ([facility]) Smoking 08/24/2020 12:00:00 AM EDT Former Smoker completed Former Smoker eCW1 ([facility]) Smoking 08/24/2020 12:00:00 AM EDT Former Smoker completed Former Smoker eCW1 ([facility]) Smoking 07/27/2020 12:00:00 AM EDT Former Smoker completed Former Smoker eCW1 ([facility]) Smoking 07/27/2020 12:00:00 AM EDT Former Smoker completed Former Smoker eCW1 ([facility]) Smoking 07/27/2020 12:00:00 AM EDT Former Smoker completed Former Smoker eCW1 ([facility]) Smoking 07/27/2020 12:00:00 AM EDT Former Smoker completed Former Smoker eCW1 ([facility]) Smoking 07/27/2020 12:00:00 AM EDT Former Smoker completed Former Smoker eCW1 ([facility]) Smoking 07/06/2020 12:00:00 AM EDT Former Smoker completed Former Smoker eCW1 ([facility]) Smoking 07/06/2020 12:00:00 AM EDT Former Smoker completed Former Smoker eCW1 ([facility]) Smoking 07/06/2020 12:00:00 AM EDT Former Smoker completed Former Smoker eCW1 ([facility]) Smoking 05/28/2020 12:00:00 AM EST Non Smoker completed Non Smoke r [facility] ([facility] ) Smoking 05/13/2020 12:00:00 AM EST Former Smoker completed Former Smoker eCW1 ([facility]) Smoking 05/13/2020 12:00:00 AM EST Former Smoker completed Former Smoker eCW1 ([facility]) Smoking 05/13/2020 12:00:00 AM EST Former Smoker completed Former Smoker eCW1 ([facility]) Smoking 05/13/2020 12:00:00 AM EST Former Smoker completed Former Smoker eCW1 ([facility]) Smoking 05/05/2020 12:00:00 AM EST Former Smoker completed Former Smoker eCW1 ([facility]) Smoking 05/05/2020 12:00:00 AM EST Former Smoker completed Former Smoker eCW1 ([facility]) Smoking 05/05/2020 12:00:00 AM EST Former Smoker completed Former Smoker eCW1 ([facility]) Smoking 05/05/2020 12:00:00 AM EST Former Smoker completed Former Smoker eCW1 ([facility]) Smoking 05/05/2020 12:00:00 AM EST Former Smoker completed Former Smoker eCW1 ([facility]) Smoking 05/05/2020 12:00:00 AM EST Former Smoker completed Former Smoker eCW1 ([facility]) Smoking 05/05/2020 12:00:00 AM EST Former Smoker completed Former Smoker eCW1 ([facility]) Smoking 04/29/2020 12:00:00 AM EST Former Smoker completed Former Smoker eCW1 ([facility]) Smoking 04/06/2020 12:00:00 AM EST Former Smoker completed Former Smoker eCW1 ([facility]) Smoking 04/06/2020 12:00:00 AM EST Former Smoker completed Former Smoker eCW1 ([facility]) Smoking 04/06/2020 12:00:00 AM EST Former Smoker completed Former Smoker eCW1 ([facility]) Smoking 04/06/2020 12:00:00 AM EST Former Smoker completed Former Smoker eCW1 ([facility]) Smoking 04/06/2020 12:00:00 AM EST Former Smoker completed Former Smoker eCW1 ([facility]) Smoking 04/06/2020 12:00:00 AM EST Former Smoker completed Former Smoker eCW1 ([facility]) Smoking 04/06/2020 12:00:00 AM EST Former Smoker completed Former Smoker eCW1 ([facility]) Smoking 02/25/2020 12:00:00 AM EST Former Smoker completed Former Smoker eCW1 ([facility]) Smoking 02/25/2020 12:00:00 AM EST Former Smoker completed Former Smoker eCW1 ([facility]) Smoking 02/25/2020 12:00:00 AM EST Former Smoker completed Former Smoker eCW1 ([facility]) Smoking 02/25/2020 12:00:00 AM EST Former Smoker completed Former Smoker eCW1 ([facility]) Smoking 02/25/2020 12:00:00 AM EST Former Smoker completed Former Smoker eCW1 ([facility]) Smoking 02/25/2020 12:00:00 AM EST Former Smoker completed Former Smoker eCW1 ([facility]) Smoking 02/25/2020 12:00:00 AM EST Former Smoker completed Former Smoker eCW1 ([facility]) Smoking 02/24/2020 12:00:00 AM EST Former Smoker completed Former Smoker eCW1 ([facility]) Smoking 02/19/2020 12:00:00 AM EST Former Smoker completed Former Smoker eCW1 ([facility]) Smoking 02/19/2020 12:00:00 AM EST Former Smoker completed Former Smoker eCW1 ([facility]) Smoking 02/19/2020 12:00:00 AM EST Former Smoker completed Former Smoker eCW1 ([facility]) Smoking 02/09/2020 12:00:00 AM EST Former Smoker completed Former Smoker eCW1 ([facility]) Smoking 02/09/2020 12:00:00 AM EST Former Smoker completed Former Smoker eCW1 ([facility]) Smoking 01/19/2020 12:00:00 AM EDT Former Smoker completed Former Smoker eCW1 ([facility]) Smoking 01/19/2020 12:00:00 AM EDT Former Smoker completed Former Smoker eCW1 ([facility]) Smoking 01/19/2020 12:00:00 AM EDT Former Smoker completed Former Smoker eCW1 ([facility]) Vital Signs ID Date Data Source UNK Name Value Range Interpretation Code Description Data Source(s) Heart rate 82 /min 82 /min [facility] ([facility]) Body temperature 98.8 [degF] 98.8 [degF] [facility] ([facility]) Body height 69 [in_i] 69 [in_i] [facility] ([facility]) 5'9" Body weight 164.00 [lb_av] 164.00 [lb_av] [facility] Body mass index (BMI) [Ratio] 24.2 kg/m2 24.2 k g/m2 [facility] ([facility]) Systolic blood pressure 109 mm[Hg] 109 mm[facility]Hg[facility] Diastolic blood pressure 65 mm[Hg] 65 mm[Hg] [facility] ([facility]) [place] body weight 160 [lb_av] 160 [lb_av] [facility] Body weight 74.390 kg 74.390 kg [facility] ([facility]) Body surface area Derived from formula 1.90 m2 1.90 m2 [facility] ([facility]) Body weight 154.4 [lb_av] 154.4 [lb_av] eCW1 ([facility]) Body height 69 [in_i] 69 [in_i] eCW1 ([facility]) Body mass index (BMI) [Ratio] 22.80 kg/m2 22.80 kg/m2 eCW1 ([facility]) Heart rate 78 /min 78 /min eCW1 ([facility]) Respiratory rate 18 /min 18 /min eCW1 ([facility]) Body temperature 97.6 [degF] 97.6 [degF] eCW1 ( [facility]) Systolic blood pressure 146 mm[Hg] 146 mm[Hg] e CW1 ([facility]) Diastolic blood pressure 66 mm[Hg] 66 mm[Hg] eCW1 ([facility]) Systolic blood pressure 138 mm[Hg] 138 mm[Hg] M EDENT ([facility]) Diastolic blood pressure 80 mm[Hg] 80 mm[Hg] [facility] ([facility]) Body temperature 97.9 [degF] 97.9 [degF] [facility] ([facility]) Body weight 152.00 [lb_av] 152.00 [lb_av] [facility] T ([facility]) Body surface area Derived from formula 1.84 m2 1.84 m2 [facility] ([facility]) Body height 69 [in_i] 69 [in_i] [facility] ([facility]) 5'9" Body mass index (BMI) [Ratio] 22.4 kg/m2 22.4 k g/m2 [facility] ([facility]) [place] body weight 160 [lb_av] 160 [lb_av] [facility] T ([facility]) Body weight 68.947 kg 68.947 kg [facility] ([facility]) Body weight 162.6 [lb_av] 162.6 [lb_av] eCW1 ([facility]) Body height 69 [in_i] 69 [in_i] eCW1 ([facility]) Body mass index (BMI) [Ratio] 24.01 kg/m2 24.01 kg/m2 eCW1 ([facility]) Heart rate 70 /min 70 /min eCW1 ([facility]) Respiratory rate 18 /min 18 /min eCW1 ([facility]) Body temperature 98.1 [degF] 98.1 [degF] eCW1 ( [facility]) Systolic blood pressure 112 mm[Hg] 112 mm[Hg] e CW1 ([facility]) Diastolic blood pressure 55 mm[Hg] 55 mm[Hg] eCW1 ([facility]) Heart rate 65 /min 65 /min [facility] ([facility]) Systolic blood pressure 116 mm[Hg] 116 mm[Hg] M EDENT ([facility]) Body mass index (BMI) [Ratio] 24.4 kg/m2 24.4 k g/m2 [facility] ([facility]) Diastolic blood pressure 71 mm[Hg] 71 mm[Hg] [facility] ([facility]) Body height 69 [in_i] 69 [in_i] [facility] ([facility]) 5'9" Body weight 165.25 [lb_av] 165.25 [lb_av] [facility] T ([facility]) [place] body weight 160 [lb_av] 160 [lb_av] [facility] Body weight 74.957 kg 74.957 kg [facility] ([facility]) Body surface area Derived from formula 1.91 m2 1.91 m2 [facility] ([facility]) Heart rate 73 /min 73 /min eCW1 ([facility]) Respiratory rate 18 /min 18 /min eCW1 ([facility]) Body temperature 97.4 [degF] 97.4 [degF] eCW1 ( [facility]) Systolic blood pressure 106 mm[Hg] 106 mm[Hg] e CW1 ([facility]) Diastolic blood pressure 49 mm[Hg] 49 mm[Hg] eCW1 ([facility]) Body weight 165.2 [lb_av] 165.2 [lb_av] eCW1 ([facility]) Body height 69 [in_i] 69 [in_i] eCW1 ([facility]) Body mass index (BMI) [Ratio] 24.39 kg/m2 24.39 kg/m2 eCW1 ([facility]) Body weight 164.00 [lb_av] 164.00 [lb_av] MEDEN T ([facility]) Body mass index (BMI) [Ratio] 24.2 kg/m2 24.2 k g/m2 MEDENT ([facility]) Systolic blood pressure 153 mm[Hg] 153 mm[Hg[facility] Diastolic blood pressure 76 mm[Hg] 76 mm[Hg] [facility] ([facility]) Heart rate 67 /min 67 /min [facility] ([facility]) Body height 69 [in_i] 69 [in_i] [facility] ([facility]) 5'9" [place] body weight 160 [lb_av] 160 [lb_av] MEDEN T ([facility]) Body weight 74.390 kg 74.390 kg [facility] ([facility]) Body surface area Derived from formula 1.90 m2 1.90 m2 [facility] ([facility]) Body weight 74.390 kg 74.390 kg [facility] ([facility]) Body height 69 [in_i] 69 [in_i] [facility] ([facility]) 5'9" Systolic blood pressure 130 mm[Hg] 130 mm[Hg] M EDENT ([facility]) Diastolic blood pressure 68 mm[Hg] 68 mm[Hg] MEDENT ([facility]) Body weight 164.00 [lb_av] 164.00 [lb_av] MEDEN T ([facility]) stated Body mass index (BMI) [Ratio] 24.2 kg/m2 24.2 k g/m2 [facility] ([facility]) [place] body weight 160 [lb_av] 160 [lb_av] MEDEN T ([facility], ) Body surface area Derived from formula 1.90 m2 1.90 m2 MEDENT ([facility]) Body weight 158 [lb_av] 158 [lb_av] eCW1 ([facility]) Body height 69 [in_i] 69 [in_i] eCW1 ([facility]) Body mass index (BMI) [Ratio] 23.33 kg/m2 23.33 kg/m2 eCW1 ([facility]) Heart rate 60 /min 60 /min eCW1 ([facility]) Respiratory rate 18 /min 18 /min eCW1 ([facility]) Body temperature 97.9 [degF] 97.9 [degF] eCW1 ( [facility]) Systolic blood pressure 182 mm[Hg] 182 mm[Hg] e CW1 ([facility]) Diastolic blood pressure 73 mm[Hg] 73 mm[Hg] eCW1 ([facility]) Body height 69 [in_i] 69 [in_i] MEDENT ([facility], ) 5'9" Body weight 164.00 [lb_av] 164.00 [lb_av] MEDEN T ([facility]) Systolic blood pressure 159 mm[Hg] 159 mm[Hg] M EDENT ([facility], ) Body surface area Derived from formula 1.90 m2 1.90 m2 MEDENT ([facility], ) Diastolic blood pressure 77 mm[Hg] 77 mm[Hg] MEDENT ([facility]) Heart rate 66 /min 66 /min MEDENT ([facility], ) Body mass index (BMI) [Ratio] 24.2 kg/m2 24.2 k g/m2 [facility] ) [place] body weight 160 [lb_av] 160 [lb_av] MEDEN T ([facility], ) Body weight 74.390 kg 74.390 kg MEDENT ([facility], ) Body weight 164.00 [lb_av] 164.00 [lb_av] MEDEN T ([facility]) Body mass index (BMI) [Ratio] 24.2 kg/m2 24.2 k g/m2 MEDENT ([facility]) [place] body weight 160 [lb_av] 160 [lb_av] MEDEN T ([facility]) Body weight 74.390 kg 74.390 kg MEDENT ([facility]) Body height 69 [in_i] 69 [in_i] MEDENT ([facility]) 5'9" Body surface area Derived from formula 1.90 m2 1.90 m2 [facility] ([facility]) Body weight 158.8 [lb_av] 158.8 [lb_av] eCW1 ([facility]) Body height 69 [in_i] 69 [in_i] eCW1 ([facility]) Body mass index (BMI) [Ratio] 23.45 kg/m2 23.45 kg/m2 eCW1 ([facility]) Heart rate 71 /min 71 /min eCW1 ([facility]) Respiratory rate 18 /min 18 /min eCW1 ([facility]) Body temperature 98.0 [degF] 98.0 [degF] eCW1 ( [facility]) Systolic blood pressure 157 mm[Hg] 157 mm[Hg] e CW1 ([facility]) Diastolic blood pressure 72 mm[Hg] 72 mm[Hg] eCW1 ([facility]) Systolic blood pressure 115 mm[Hg] 115 mm[Hg] M EDENT ([facility]) Diastolic blood pressure 63 mm[Hg] 63 mm[Hg] MEDENT ([facility]) Heart rate 78 /min 78 /min MEDENT ([facility]) Body height 69 [in_i] 69 [in_i] MEDENT ([facility]) 5'9" Body weight 151.00 [lb_av] 151.00 [lb_av] MEDEN T ([facility]) Body mass index (BMI) [Ratio] 22.3 kg/m2 22.3 k g/m2 [facility] Body surface area Derived from formula 1.83 m2 1.83 m2 MEDENT ([facility]) [place] body weight 160 [lb_av] 160 [lb_av] MEDEN T ([facility]) Body weight 68.494 kg 68.494 kg [facility] ([facility]) Body weight 151.2 [lb_av] 151.2 [lb_av] eCW1 ([facility]) Body height 69 [in_i] 69 [in_i] eCW1 ([facility]) Body mass index (BMI) [Ratio] 22.33 kg/m2 22.33 kg/m2 eCW1 ([facility]) Heart rate 81 /min 81 /min eCW1 ([facility]) Respiratory rate 17 /min 17 /min eCW1 ([facility]) Body temperature 98.1 [degF] 98.1 [degF] eCW1 ( [facility]) Systolic blood pressure 114 mm[Hg] 114 mm[Hg] e CW1 ([facility]) Diastolic blood pressure 55 mm[Hg] 55 mm[Hg] eCW1 ([facility]) Systolic blood pressure 136 mm[Hg] 136 mm[Hg] M EDENT ([facility]) Diastolic blood pressure 78 mm[Hg] 78 mm[Hg] MEDENT ([facility]) Heart rate 69 /min 69 /min MEDENT ([facility]) Body height 69 [in_i] 69 [in_i] [facility] 5'9" Body weight 153.50 [lb_av] 153.50 [lb_av] MEDEN T ([facility]) Body mass index (BMI) [Ratio] 22.7 kg/m2 22.7 k g/m2 [facility] [place] body weight 160 [lb_av] 160 [lb_av] MEDEN T ([facility]) Body weight 69.628 kg 69.628 kg [facility] ([facility]) Body surface area Derived from formula 1.85 m2 1.85 m2 [facility] ([facility]) Diastolic blood pressure 70 mm[Hg] 70 mm[Hg] [facility] Body weight 155.00 [lb_av] 155.00 [lb_av] MEDEN T ([facility]) Stated Body mass index (BMI) [Ratio] 22.9 kg/m2 22.9 k g/m2 [facility] ([facility]) [place] body weight 160 [lb_av] 160 [lb_av] MEDEN T ([facility]) Body weight 70.308 kg 70.308 kg [facility] ([facility]) Body surface area Derived from formula 1.85 m2 1.85 m2 [facility] ([facility]) Body height 69 [in_i] 69 [in_i] [facility] 5'9" Systolic blood pressure 150 mm[Hg] 150 mm[Hg] [facility] Body weight 155 [lb_av] 155 [lb_av] eCW1 ([facility]) Body height 69 [in_i] 69 [in_i] eCW1 ([facility]) Body mass index (BMI) [Ratio] 22.89 kg/m2 22.89 kg/m2 W1 ([facility]) Heart rate 78 /min 78 /min eCW1 ([facility]) Respiratory rate 18 /min 18 /min eCW1 ([facility]) Body temperature 98.4 [degF] 98.4 [degF] eCW1 ( [facility]) Systolic blood pressure 109 mm[Hg] 109 mm[Hg] e CW1 ([facility]) Diastolic blood pressure 53 mm[Hg] 53 mm[Hg] eCW1 ([facility]) Systolic blood pressure 124 mm[Hg] 124 mm[Hg] [facility] Diastolic blood pressure 72 mm[Hg] 72 mm[Hg] [facility] ([facility]) Body height 69 [in_i] 69 [in_i] [facility] 5'9" Body weight 145.00 [lb_av] 145.00 [lb_av] MEDEN T ([facility]) Body mass index (BMI) [Ratio] 21.4 kg/m2 21.4 k g/m2 [facility] ([facility]) [place] body weight 160 [lb_av] 160 [lb_av] MEDEN T ([facility]) Body weight 65.772 kg 65.772 kg [facility] ([facility]) Body surface area Derived from formula 1.80 m2 1.80 m2 [facility] ([facility]) Body weight 155 [lb_av] 155 [lb_av] eCW1 ([facility]) Body height 69 [in_i] 69 [in_i] eCW1 ([facility]) Heart rate 89 /min 89 /min eCW1 ([facility]) Respiratory rate 20 /min 20 /min eCW1 ([facility]) Body mass index (BMI) [Ratio] 22.89 kg/m2 22.89 kg/m2 eCW1 ([facility]) Diastolic blood pressure 42 mm[Hg] 42 mm[Hg] eCW1 ([facility]) Body temperature 98.7 [degF] 98.7 [degF] eCW1 ( [facility]) Systolic blood pressure 91 mm[Hg] 91 mm[Hg] e CW1 ([facility]) Diastolic blood pressure 73 mm[Hg] 73 mm[Hg] [facility] ([facility]) Body height 69 [in_i] 69 [in_i] [facility] ([facility]) 5'9" Body weight 143.00 [lb_av] 143.00 [lb_av] MEDEN T ([facility]) stated Systolic blood pressure 123 mm[Hg] 123 mm[Hg] M EDENT ([facility]) Body mass index (BMI) [Ratio] 21.1 kg/m2 21.1 k g/m2 [facility] ([facility]) [place] body weight 160 [lb_av] 160 [lb_av] MEDEN T ([facility]) Body weight 64.865 kg 64.865 kg MEDENT ([facility]) Body surface area Derived from formula 1.79 m2 1.79 m2 [facility] ([facility]) Body weight 155 [lb_av] 155 [lb_av] eCW1 ([facility]) Body height 69 [in_i] 69 [in_i] eCW1 ([facility]) Body mass index (BMI) [Ratio] 22.89 kg/m2 22.89 kg/m2 eCW1 ([facility]) Heart rate 74 /min 74 /min eCW1 ([facility]) Respiratory rate 18 /min 18 /min eCW1 ([facility]) Body temperature 98.3 [degF] 98.3 [degF] eCW1 ( [facility]) Systolic blood pressure 136 mm[Hg] 136 mm[Hg] e CW1 ([facility]) Diastolic blood pressure 65 mm[Hg] 65 mm[Hg] eCW1 ([facility]) Systolic blood pressure 110 mm[Hg] 110 mm[Hg] M EDENT ([facility]) Diastolic blood pressure 63 mm[Hg] 63 mm[Hg] MEDENT ([facility]) Body height 69 [in_i] 69 [in_i] [facility] ([facility]) 5'9" Body weight 143.00 [lb_av] 143.00 [lb_av] MEDEN T ([facility]) Body mass index (BMI) [Ratio] 21.1 kg/m2 21.1 k g/m2 [facility] [place] body weight 160 [lb_av] 160 [lb_av] MEDEN T ([facility]) Body weight 64.865 kg 64.865 kg [facility] ([facility]) Body surface area Derived from formula 1.79 m2 1.79 m2 [facility] ([facility]) Heart rate 85 /min 85 /min [facility] ([facility]) Body height 69 [in_i] 69 [in_i] MEDENT ([facility], ) 5'9" [place] body weight 160 [lb_av] 160 [lb_av] MEDEN T ([facility], ) Systolic blood pressure 126 mm[Hg] 126 mm[Hg] M EDENT ([facility], ) Diastolic blood pressure 61 mm[Hg] 61 mm[Hg] MEDENT ([facility], ) Respiratory rate 20 /min 20 /min eCW1 ([facility]) Body weight 164 [lb_av] 164 [lb_av] eCW1 ([facility]) Body temperature 97.7 [degF] 97.7 [degF] eCW1 ( [facility]) Body height 69 [in_i] 69 [in_i] eCW1 ([facility]) Body mass index (BMI) [Ratio] 24.22 kg/m2 24.22 kg/m2 eCW1 ([facility]) Heart rate 90 /min 90 /min eCW1 ([facility]) Systolic blood pressure 188 mm[Hg] 188 mm[Hg] e CW1 ([facility]) Diastolic blood pressure 78 mm[Hg] 78 mm[Hg] eCW1 ([facility]) Body weight 164 [lb_av] 164 [lb_av] eCW1 ([facility]) Body height 69 [in_i] 69 [in_i] eCW1 ([facility]) Body mass index (BMI) [Ratio] 24.22 kg/m2 24.22 kg/m2 eCW1 ([facility]) Heart rate 82 /min 82 /min eCW1 ([facility]) Respiratory rate 20 /min 20 /min eCW1 ([facility]) Body temperature 98.5 [degF] 98.5 [degF] eCW1 ( [facility]) Systolic blood pressure 107 mm[Hg] 107 mm[Hg] e CW1 ([facility]) Diastolic blood pressure 58 mm[Hg] 58 mm[Hg] eCW1 ([facility]) Respiratory rate 22 /min 22 /min eCW1 ([facility]) Body weight 168 [lb_av] 168 [lb_av] eCW1 ([facility]) Body weight kg eCW1 ([facility]) Body temperature 98.2 [degF] 98.2 [degF] eCW1 ( [facility]) Body height 69 [in_i] 69 [in_i] eCW1 ([facility]) Body mass index (BMI) [Ratio] 24.81 kg/m2 24.81 kg/m2 eCW1 ([facility]) Heart rate 88 /min 88 /min eCW1 ([facility]) Systolic blood pressure 188 mm[Hg] 188 mm[Hg] e CW1 ([facility]) Diastolic blood pressure mm[Hg] eCW1 ([facility]) Body height 69 [in_i] 69 [in_i] MEDENT [...] 24.8 k g/m2 MEDENT ([facility] Body height 69 [in_i] 69 [in_i] MEDENT ([facility], ) 5'9" Diastolic blood pressure 70 mm[Hg] 70 mm[Hg] MEDENT ([facility], ) Body weight 168.25 [lb_av] 168.25 [lb_av] MEDEN T ([facility]) Body weight 76.318 kg 76.318 kg MEDENT ([facility]) Systolic blood pressure 128 mm[Hg] 128 mm[Hg] M EDENT ([facility]) Body surface area Derived from formula 1.92 m2 1.92 m2 [facility] ([facility]) [place] body weight 160 [lb_av] 160 [lb_av] MEDEN T ([facility]) Body mass index (BMI) [Ratio] 24.8 kg/m2 24.8 k g/m2 [facility] ([facility]) Body weight 168 [lb_av] 168 [lb_av] eCW1 ([facility]) Body weight kg eCW1 ([facility]) Respiratory rate 18 /min 18 /min eCW1 ([facility]) Body height 69 [in_i] 69 [in_i] eCW1 ([facility]) Body temperature 94.6 [degF] 94.6 [degF] eCW1 ( [facility]) Body mass index (BMI) [Ratio] 24.81 kg/m2 24.81 kg/m2 eCW1 ([facility]) Systolic blood pressure 107 mm[Hg] 107 mm[Hg] e CW1 ([facility]) Heart rate 77 /min 77 /min eCW1 ([facility]) Diastolic blood pressure 69 mm[Hg] 69 mm[Hg] eCW1 ([facility]) Body weight 168 [lb_av] 168 [lb_av] eCW1 ([facility]) Body weight kg eCW1 ([facility]) Body height 69 [in_i] 69 [in_i] eCW1 ([facility]) Body mass index (BMI) [Ratio] 24.81 kg/m2 24.81 kg/m2 eCW1 ([facility]) Systolic blood pressure 124 mm[Hg] 124 mm[Hg] M EDENT ([facility]) Diastolic blood pressure 70 mm[Hg] 70 mm[Hg] MEDENT ([facility]) Body height 69 [in_i] 69 [in_i] [facility] ([facility]) 5'9" Body weight 174.00 [lb_av] 174.00 [lb_av] [facility] Body mass index (BMI) [Ratio] 25.7 kg/m2 25.7 k g/m2 [facility] ([facility]) [place] body weight 160 [lb_av] 160 [lb_av] [facility] Body weight 78.926 kg 78.926 kg [facility] ([facility]) Patient Treatment Plan of Care Planned Activity Planned Date Details Description Data Source (s) Bisacodyl 10 MG Rectal Suppository 12/14/2020 12:00:00 AM EDT eCW1 ([facility]) Docusate Sodium 100 MG Oral Capsule [Colace] 12/14/2020 12:00:00 AM EDT eCW1 ([facility]) Ketoconazole 20 MG/ML Topical Cream 09/16/2020 12:00:00 AM EDT eCW1 ([facility]) Ketoconazole 20 MG/ML Topical Cream 09/16/2020 12:00:00 AM EDT eCW1 ([facility]) Ketoconazole 20 MG/ML Topical Cream 09/16/2020 12:00:00 AM EDT eCW1 ([facility]) Ketoconazole 20 MG/ML Topical Cream 09/16/2020 12:00:00 AM EDT eCW1 ([facility]) Prednisone 1 MG Oral Tablet 07/27/2020 12:00:00 AM EDT eCW1 ([facility]) Prednisone 1 MG Oral Tablet 07/27/2020 12:00:00 AM EDT eCW1 ([facility]) Prednisone 1 MG Oral Tablet 07/27/2020 12:00:00 AM EDT eCW1 ([facility]) Prednisone 1 MG Oral Tablet 07/27/2020 12:00:00 AM EDT eCW1 ([facility]) Prednisone 1 MG Oral Tablet 07/27/2020 12:00:00 AM EDT eCW1 ([facility]) aripiprazole 5 MG Oral Tablet 07/06/2020 12:00:00 AM EDT eCW1 ([facility]) aripiprazole 5 MG Oral Tablet 07/06/2020 12:00:00 AM EDT eCW1 ([facility]) aripiprazole 5 MG Oral Tablet 07/06/2020 12:00:00 AM EDT eCW1 ([facility]) aripiprazole 5 MG Oral Tablet 07/06/2020 12:00:00 AM EDT eCW1 ([facility]) aripiprazole 5 MG Oral Tablet 07/06/2020 12:00:00 AM EDT eCW1 ([facility]) aripiprazole 5 MG Oral Tablet 07/06/2020 12:00:00 AM EDT eCW1 ([facility]) aripiprazole 5 MG Oral Tablet 07/06/2020 12:00:00 AM EDT eCW1 ([facility]) aripiprazole 5 MG Oral Tablet 07/06/2020 12:00:00 AM EDT eCW1 ([facility]) aripiprazole 5 MG Oral Tablet 07/06/2020 12:00:00 AM EDT eCW1 ([facility]) aripiprazole 5 MG Oral Tablet 07/06/2020 12:00:00 AM EDT eCW1 ([facility]) aripiprazole 5 MG Oral Tablet 07/06/2020 12:00:00 AM EDT eCW1 ([facility]) aripiprazole 5 MG Oral Tablet 07/06/2020 12:00:00 AM EDT eCW1 ([facility]) aripiprazole 5 MG Oral Tablet 07/06/2020 12:00:00 AM EDT eCW1 ([facility]) Misc. Devices - 03/11/2020 12:00:00 AM EST eCW1 ([facility]) Misc. Devices - 03/11/2020 12:00:00 AM EST eCW1 ([facility]) Misc. Devices - 03/11/2020 12:00:00 AM EST eCW1 ([facility]) Misc. Devices - 03/11/2020 12:00:00 AM EST eCW1 ([facility]) Misc. Devices - 03/11/2020 12:00:00 AM EST eCW1 ([facility]) Wheelchair - 02/24/2020 12:00:00 AM EST e CW1 ([facility]) Wheelchair - 02/24/2020 12:00:00 AM EST e CW1 ([facility]) Wheelchair - 02/24/2020 12:00:00 AM EST e CW1 ([facility]) Wheelchair - 02/24/2020 12:00:00 AM EST e CW1 ([facility]) Wheelchair - 02/24/2020 12:00:00 AM EST e CW1 ([facility]) Wheelchair - 02/24/2020 12:00:00 AM EST e CW1 ([facility]) Wheelchair - 02/24/2020 12:00:00 AM EST e CW1 ([facility]) Wheelchair - 02/24/2020 12:00:00 AM EST e CW1 ([facility])
[2021-02-11 23:21] LABS: RSV AMPLIFICATION NEGATIVE (NEGATIVE)
[2021-02-12 00:29] LABS: C REACTIVE PROTEIN QUANTITATIV 3.75 MG/DL (0.00-0.30)
[2021-02-12] MEDS ORDERED: GLUCAGON INJ 1MG VIAL SC PRN ×2 (00:50→09:45)
[2021-02-12] MEDS ORDERED: DEXTROSE 50% 50 ML SYRINGE IV PRN ×2 (00:50→09:45)
[2021-02-12] MEDS ORDERED: GLUCOSE 4GM CHEW TABLET PO PRN ×2 (00:50→09:45)
[2021-02-12 01:31] LABS: ERYTHROCYTE SEDIMENTATION RATE 35 mm/hr (0-20)
--- NOTE | 2021-02-12 01:51 | HPEPDOC ---
[facility] Medical History & Physical Date of Admission Feb 12, 2021 Date of Service: Feb 12, 2021 Attending Physician: DOUG MULLIGAN MD History and Physical CHIEF COMPLAINT: Low blood sugar HISTORY OF PRESENT ILLNESS: Hermann is a 60-year-old male who presents via EMS following hypoglycemic epi sode at home. Per EMS, patient was found to have BS 27 and was given glucose and glucagon with adequate response. Upon arrival to ED, patient was found to have BS 74 and was alert and oriented. Of note, patient was seen and evaluated in the ED yesterday (02/10) due to hypoglycemia. Patient denies any symptoms and has no acute complaints. Reports decreased appetite over the past week, and he attrib utes this to his recent hypoglycemic episodes. Denies LOC, changes in vision, tremors, sweats, nausea/vomiting, abdominal pain. He tells me his sister noticed his blood sugar was low and called EMS. Denies recent illness, dehydration. Denies chest pain, SOB, cough, numbness/tingling, changes in BM, changes in urination. In the ED, VSS, CMP WNL. CBC significant for WBC 14.5. CRP 3.75. Patient rece ived dextrose and D5 NS. PAST MEDICAL HISTORY: 1. Type I DM with insulin pump 2. HTN. 3. HLD 4. History of brain tumor 5. PVD 6. RA 7. Bipolar disorder 8. GERD 9. BPH PAST SURGICAL HISTORY: 1. 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 2. Bilateral cataract removal. 3. Right wrist surgery s/p trauma. SOCIAL HISTORY: Marital status: Single. Resides in: Home Tobacco use: Former smoker, quit 20 years ago ETOH: Former heavy drinker, quit 30 years ago Illicit drug use: Currently smokes marijuana "every few days" Other relevant social factors: Lives in a private home, but sister checks on him every day. Home health nurse visits 3 days/week FAMILY HISTORY: COPD, HTN ALLERGIES: Please see below. REVIEW OF SYSTEMS: CONSTITUTIONAL: Reports fatigue, decreased appetite. Denies fever/chills, tremor s, poor hydration. HEENT: Reports "irritating to swallow because of messed up esophagus." Denies dysphagia, headache, lightheadedness, changes in vision, nasal congestion, rhinorrhea, sore throat, ear pain. CARDIOVASCULAR: Reports occasional palpitations. Denies chest pain. RESPIRATORY: Denies SOB, cough, wheezing. GASTROINTESTINAL: Denies abdominal pain, nausea/vomiting, constipation, diarrhea. GENITOURINARY: Denies changes in urination, urinary hesitancy/frequency, dysuria. SKIN: Denies new abrasions/wounds/ulcers. MUSCULOSKELETAL: Denies weakness. NEUROLOGICAL: Denies changes in sensation, numbness/tingling/burning. PSYCHIATRIC: Denies feelings of hopelessness, loss of interest, feelings of anxiety. HOME MEDICATIONS: Please see below. PHYSICAL EXAMINATION: VITAL SIGNS: Temperature 99.5, pulse 87, respiratory rate 17, blood pressure 112/61, pulse oximetry 99% on room air. GENERAL APPEARANCE: Alert, awake, laying in stretcher, NAD, blanket wrapped around head HEENT: EOMI with poor tracking, nares patent, dry mucous membranes, no dentition CARDIOVASCULAR: RRR, normal heart sounds, 4/6 systolic murmur. LUNGS: CTA bilaterally, no WRR, no accessory muscles used. ABDOMEN: Soft, nondistended, minimal dull tenderness with deep palpation right upper quadrant that radiates across to left upper quadrant. SKIN: Well-healing bruises on left upper extremity, 2cm ulcer with wound VAC on right stump clean/intact/no surrounding signs of infection, no new abrasions/wounds/ulcers MUSCULOSKELETAL: Bilateral BKA, normal ROM, strength 5/5. EXTREMITIES: No significant edema/cyanosis, bilateral BKA. NEUROLOGICAL: CN III-XII intact, sensation intact. PSYCHIATRIC: AOx3, no depressed/anxious mood. LABORATORY DATA: See below. IMAGING: Pending MICROBIOLOGY: Please see below. ASSESSMENT/PLAN: Hermann is a 60-year-old male PMH type 1 DM with insulin pump, s/p bilateral BKA with chronic wound on right stump presents with recurrent hypoglycemic episodes, found to have BS 27 per EMS and WBC 14.5 in ED, being admitted for further work- up to rule out possible infection. #Hypoglycemia, 2/2 decreased appetite vs infection Patient has IDDM1 on insulin pump Plan for possible infection, as noted below Continue D5 1/2 NS Hold home insulin pump, pending further work-up Start hypoglycemic protocol If patient's fasting BS increases, begin SSI #Leukocytosis, 2/2 infection vs chronic steroid use In ED, WBC 14.5, CRP 3.75, ESR 35 Patient tells me he is on chronic steroids due to adrenal insufficiency 2/2 chronic prednisone use for RA. However, despite chronic steroid use, patient's baseline WBC is WNL. CXR pending Order UA and urine culture Order blood culture Order lactate, pro-Odilon Continue to monitor daily labs #Bilateral BKA w/ chronic wound on right stump Patient tells me he has a home health nurse who is visits 3 days/week for wound care Chronic wound on right stump clean and without surrounding skin changes/signs of infection. Wound vac intact with adequate function. At this time, low suspicion that chronic wound is source of infection. Continue home linezolid 600 mg twice daily Continue wound vac maintenance #HTN In the ED, BP 112/61 Continue home amlodipine 5 mg twice daily, lisinopril 5 mg daily Continue to monitor BP #CHF, diastolic LVEF 65-70% on echo 12/2020 Patient appears euvolemic on evaluation Monitor Is + Os #RA with secondary adrenal insufficiency Continue home prednisone 8 mg daily #PVD Continue home ASA 81 mg daily, Lipitor 40 mg daily, Plavix 75 mg daily #BPH Continue home finasteride 5 mg daily #GERD Continue home Protonix 40 mg twice daily #Bipolar disorder Continue home aripiprazole 5 mg daily, citalopram 40 mg daily #DVT prophylaxis On Lovenox DIET: Consistent carb ACTIVITY: Assisted ambulation only, fall risk precautions DISPO: Pending further work-up, expect <2 midnights CODE STATUS: Full code Vital Signs Vital Signs Date Time Temp Pulse Resp B/P (MAP) Pulse Ox O2 Delivery O2 Flow Rate FiO2 02/12/21 00:30 82 16 147/65 (92) 98 Room Air 02/11/21 21:27 99.5 Laboratory Data Labs 24H Laboratory Tests 2 02/11/21 19:02: Nucleated Red Blood Cells % (auto) 0.0, Anion Gap 8, Glomerular Filtration Rate 59.7, Calcium Level 8.8, Total Bilirubin 0.5, Aspartate Amino Transf (AST/SGOT) 20, Alanine Aminotransferase (ALT/SGPT) 35, Alkaline Phosphatase 106, C-Reactive Protein, Quantitative 3.75H, Total Protein 6.2L, Albumin 3.2, Albumin/Globulin Ratio 1.1 02/11/21 20:38: Bedside Glucose (Misc Panel) 74L 02/11/21 22:09: Bedside Glucose (Misc Panel) 105 02/11/21 22:15: Coronavirus (COVID-19)(PCR) NEGATIVE, Influenza Type A (RT-PCR) NEGATIVE, Influ geovanna Type B (RT-PCR) NEGATIVE, Respiratory Syncytial Virus (PCR) NEGATIVE 02/12/21 00:35: Bedside Glucose (Misc Panel) 138H CBC/BMP Laboratory Tests 02/11/21 19:02 Home Medications Scheduled Amlodipine Besylate (Norvasc) 5 Mg Tablet, 5 MG PO BID Aripiprazole (Abilify) 5 Mg Tablet, 5 MG PO DAILY Aspirin (Aspirin EC) 81 Mg Tablet.dr, 81 MG PO DAILY Atorvastatin Calcium (Atorvastatin Calcium) 40 Mg Tablet, 40 MG PO DAILY Citalopram Hydrobromide (Citalopram HBr) 40 Mg Tablet, 40 MG PO DAILY Clopidogrel Bisulfate (Plavix) 75 Mg Tablet, 75 MG PO DAILY Ferrous Sulfate (Ferrous Sulfate) 325 Mg Tab, 325 MG PO QWEEK SUNDAY Finasteride (Finasteride) 5 Mg Tablet, 5 MG PO DAILY Gabapentin (Gabapentin) 300 Mg Capsule, 300 MG PO BID Insulin Human Lispro (Novolog) 100 Unit/1 Ml Vial, 1 DOSE SC ASDIRECTED SLIDING SCALE. UP TO 100 UNITS DAILY CONTINUOUS THROUGH INSULIN PUMP Linezolid (Linezolid) 600 Mg Tablet, 600 MG PO BID Multivitamins (Thera M Plus Tablet) 1 Each Tablet, 1 TAB PO DAILY Pantoprazole Sodium (Pantoprazole Sodium) 40 Mg Tablet.dr, 40 MG PO BID Prednisone (Prednisone) 1 Mg Tablet, 3 MG PO DAILY TAKES WITH 5MG FOR 8MG TOTAL Prednisone (Prednisone) 5 Mg Tablet, 5 MG PO DAILY TAKE WITH 3MG FOR 8MG TOTAL Sucralfate (Sucralfate) 1 Gm/10 Ml Oral.susp, 1 GM PO ACHS Scheduled PRN Acetaminophen (Acetaminophen) 325 Mg Tablet, 650 MG PO Q4H PRN for MILD PAIN or TEMP > 101 Docusate Sodium (Stool Softener) 100 Mg Capsule, 100 MG PO DAILY PRN for CONSTIPATION Glucagon,Human Recombinant (Glucagon Emergency Kit) 1 Mg Vial, 1 MG IM ASDIRECTED PRN for LOW BLOOD SUGAR Miscellaneous Medications Lisinopril (Lisinopril) 5 Mg Tablet Allergies Coded Allergies: No Known Allergies (Unverified , 02/11/21) A-FIB/CHADSVASC A-FIB History Current/History of A-Fib/PAF?: No Meme Coles DO Feb 12, 2021 01:50
--- OUTSIDE RECORDS SUMMARY | 2021-02-12 02:03 | CCD ---
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 Name Role Phone DIDIER KEVIN MD [...] Hanna Chavez MD Unavailable Unavailable Cederstrand, Hanna hCavez MD Unavailable Unavailable Cederstrand, Hanna Chavez MD Unavailable Unavailable Cederstrand, Hanna Chavez MD Unavailable Unavailable Cederstrand, Hanna Chavez MD Unavailable Unavailable Ama Malagon Unavailable Unavailable WojciechJarvis Manuel Unavailable Unavailable AxtonJarvis Manuel Unavailable Unavailable WojciechJarvis Manuel Unavailable Unavailable AxtonJarvis Manuel Unavailable Unavailable Axton, Jarvis Manuel Unavailable Unavailable AxtonJarvis Manuelcabrera ZURITA Unavailable Unavailable AxtonJarvis Manuel Unavailable Unavailable AxtonJarvis Manuel Unavailable Unavailable WojciechJarvis Manuelcabrera ZURITA Unavailable Unavailable AxtonJarvis Manuelcabrera ZURITA Unavailable Unavailable AxtonJarvis Manuel Unavailable Unavailable WojciechJarvis Manuelcabrera ZURITA Unavailable Unavailable AxtonJarvis Manuelcabrera ZURITA Unavailable Unavailable WojciechJarvis Manuel Unavailable Unavailable AxtonJarvis Manuel Unavailable Unavailable AxtonJarvis Manuel Unavailable Unavailable AxtonJarvis Manuel Unavailable Unavailable AxtonJarvis Manuelcabrera ZURITA Unavailable Unavailable AxtonJarvis Manuelcabrera ZURITA Unavailable Unavailable AxtonJarvis Manuelcabrera ZURITA Unavailable Unavailable WojciechJarvis Manuel Unavailable Unavailable AxtonJarvis Manuel MD Unavailable Unavailable AxtonJarvis Manuel MD Unavailable Unavailable WojciechJarvis Manuel Unavailable Unavailable WojciechJarvis Manuel MD Unavailable Unavailable AxtonJarvis Manuel Unavailable Unavailable AxtonJarvis Manuel MD Unavailable Unavailable AxtonJarvis Manuel MD Unavailable Unavailable WojciechJarvis Manuel Unavailable Unavailable AxtonJarvis Manuel MD Unavailable Unavailable WojciechJarvis Manuel MD Unavailable Unavailable AxtonJarvis Manuel MD Unavailable Unavailable AxtonJarvis Manuel Unavailable Unavailable AxtonJarvis Manuel MD Unavailable Unavailable AxtonJarvis Manuel Unavailable Unavailable AxtonJarvis Manuel Unavailable Unavailable WojciechJarvis Manuel MD Unavailable Unavailable Wojciech, L Manuel MD Unavailable Unavailable Wojciech, L Manuel MD Unavailable Unavailable Axton, L Manuel MD Unavailable Unavailable Axton, L Manuel MD Unavailable Unavailable Axton, L Manuel MD Unavailable Unavailable Axton, L Manuel MD Unavailable Unavailable Axton, L Manuel MD Unavailable Unavailable Wojciech, L Manuel MD Unavailable Unavailable Axton, L Manuel MD Unavailable Unavailable Wocjiech, L Manuel MD Unavailable Unavailable Axton, L Manuel MD Unavailable Unavailable Dumont, L [...] RPA Unavailable Unavailable Ama Malagon PA Unavailable [phone] Ama Malagon Unavailable [phone] Ama Malagon PA Unavailable [phone] Ama Malagon PA Unavailable [phone] Ama Malagon Unavailable [phone] Ama Malagon Unavailable [phone] Ama Malagon Unavailable [phone] Ama Malagon Unavailable [phone] Ama Malagon Unavailable [phone] Ama Malagon Unavailable [phone] Ama Malagon Unavailable [phone] Ama Maalgon Unavailable [phone] Ama Malagon Unavailable [phone] Re-disclosure Warning The records that you are [...] by Article 27-F of the [facility] Public Health law. If you continue you may have access to information: Regarding HIV / AIDS; Provided by facilities licensed or operated by the [facility] Office of Mental Health; or Provided by the [facility] Office for People With Developmental Disabilities. If such information is present, then the following [facility] mandated warning applies: This information has [...] Description Data Source(s) Unknown Unknown Problem MEDENT ([facility]) father Encounters Encounter Providers Location Date Indications Data Source(s ) Unknown [address] [facility] [address] 01/27/2021 12:00:00 AM EDT [facility] Outpatient Attender: Alex Kuhn MD CPSCAORT-CPSCAEND 01/24 12:59:00 PM EDT - 01/24/2021 01:00:00 PM EDT E10.65 [facility] E10.65 Patient discharged. Outpatient [address] [facility] [address] 01/21/2021 12:00:00 AM EDT [facility]CW[facility] [place] [address] [facility] [address] 01/07/2021 12:00:00 AM EDT [facility] Office Visit Attender: KAREN Mcnair/Анна/Indra/Re indl 01/06/2021 11:45:00 AM EDT MEDENT ([facility]) [place] [address] [facility] [address] 12/31/2020 12:00:00 AM EDT eCW1 [facility]) (TCM) Transition of Care Visit [address] [place] [address] 12/23/2020 12:00:00 AM EDT eCW1 ([facility]) [place] [address] [facility] [address] 12/22/2020 12:00:00 AM EDT [facility]CW1 [facility]) Office Visit Attender: KAREN Mcnair/Анна/Indra/Re indl 12/17/2020 01:00:00 PM EDT MED[facility] ([facility]) [place] [address] [facility] [address] 12/16/2020 12:00:00 AM EDT eCW1 ([facility]) [place] [address] [facility] [address] 12/14/2020 12:00:00 AM EDT eCW1 ([facility]) Outpatient Attender: Manuel Mcnair/Анна/Indra/ Reindl 11/11/2020 08:30:00 AM EDT MEDENT ([facility]) Outpatient Attender: MATT Mcnair/Анна/Indra/Reincailin 11/01/2020 02:30:00 PM EDT MED[facility] ([facility]) [place] [address] [facility] [address] 10/20/2020 12:00:00 AM EDT eCW1 ([facility]) Outpatient Attender: Jose GLEASONttender: Maurisio AVENDAÑO CPSCAORT-CPSCAEND 10/11/2020 10:38:00 AM EDT - 10/11/2020 10:39:00 AM ED T E10.65 [facility] E10.65 Patient discharged. [place] [address] [facility] [address] 09/16/2020 12:00:00 AM EDT eCW1 ([facility]) Unknown [address] [facility] [address] 09/16/2020 12:00:00 AM EDT eCW1 ([facility]) Office Visit, Est Pt., Level 3 FC [address] [place] [address] 08/24/2020 12:00:00 AM EDT eCW1 ([facility]) Unknown [address] [facility] [address] 08/17/2020 12:00:00 AM EDT eCW1 ([facility]) Unknown [address] [facility] [address] 08/17/2020 12:00:00 AM EDT eCW1 ([facility]) Outpatient Attender: Kathy Mcnair/Анна/Indra/ Reindl 08/12/2020 11:00:00 AM EDT MED[facility] ([facility]) [place] [address] [facility] [address] 08/05/2020 12:00:00 AM EDT eCW1 ([facility]) [place] [address] [facility] [address] 07/27/2020 12:00:00 AM EDT [facility]CW1 [facility] [place] [address] [facility] [address] 07/27/2020 12:00:00 AM EDT [facility]CW[facility] Outpatient Attender: Alex Kuhn MD CPSCAORT-CPSCAEND 07/09 01:20:00 PM EDT - 07/09/2020 01:21:00 PM EDT E10.65 [facility] E10.65 Patient discharged. [place] [address] [facility] [address] 07/09/2020 12:00:00 AM EDT [facility]CW[facility] Outpatient Attender: Kathy Mcnair/Анна/Indra/ Talon 07/08/2020 11:45:00 AM EDT [facility] ([facility]) [place] [address] [facility] [address] 07/06/2020 12:00:00 AM EDT [facility]CW1 [facility] [place] [address] [facility] [address] 07/02/2020 12:00:00 AM EDT eCW1 ([facility]) [place] [address] [facility] [address] 06/24/2020 12:00:00 AM EDT [facility]CW1 [facility] [place] [address] [facility] [address] 06/09/2020 12:00:00 AM EST eCW1 [facility] Outpatient Attender: Kathy Mcnair/Анна/Indra/ Reindl 06/07/2020 12:00:00 PM EST MEDENT ([facility]) Office Visit Attender: Florencia Mcnair/Parnell/Indra/R eindl 05/27/2020 09:30:00 AM EST MEDENT ([facility]) Unknown [address] [facility] [address] 05/20/2020 12:00:00 AM EST eCW1 [facility]) (TCM) Transition of Care Visit [address] [place] [address] 05/13/2020 12:00:00 AM EST eCW1 ([facility]) Office Visit Attender: Florencia Mcnair/Анна/Indra/R eindl 05/12/2020 01:00:00 PM EST MEDENT ([facility]) Unknown [address] [facility] [address] 05/10/2020 12:00:00 AM EST [facility]CW1 [facility] Unknown [address] [facility] [address] 05/10/2020 12:00:00 AM EST [facility]CW1 [facility] Unknown [address] [facility] [address] 05/05/2020 12:00:00 AM EST [facility]CW1 [facility] TeleMedicine Phone E/M by Phys 11-20 Min [address] [place] [address] 05/05/2020 12:00:00 AM EST eCW1 ([facility]) Unknown [address] [facility] [address] 05/05/2020 12:00:00 AM EST [facility]CW1 [facility] Unknown [address] [facility] [address] 04/30/2020 12:00:00 AM EST eCW1 [facility]) (TCM) Transition of Care Visit [address] [place] [address] 04/29/2020 12:00:00 AM EST eCW1 ([facility]) [place] [address] [facility] [address] 04/29/2020 12:00:00 AM EST eCW1 ([facility]) Unknown [address] [facility] [place] [address] 04/28/2020 12:00:00 AM EST eCW1 ([facility]) [place] [address] [facility] [address] 04/26/2020 12:00:00 AM EST eCW1 ([facility]) Unknown [address] [facility] [place] [address] 04/23/2020 12:00:00 AM EST eCW1 ([facility]) Unknown [address] [facility] [place] [address] 04/22/2020 12:00:00 AM EST eCW1 ([facility]) Unknown [address] [facility] [address] 04/21/2020 12:00:00 AM EST eCW1 ([facility]) Office Visit Attender: Florencia Mcnair/Анна/Indra/R eindl 04/12/2020 10:45:00 AM EST [facility] ([facility]) Outpatient [address] [facility] [address] 04/06/2020 12:00:00 AM EST eCW1 ([facility]) Office Visit Attender: Florencia Mcnair/Анна/Indra/R eindl 04/05/2020 08:15:00 AM EST [facility] ([facility]) [place] [address] [facility] [address] 03/31/2020 12:00:00 AM EST eCW1 ([facility]) Unknown [address] [facility] [place] [address] 03/31/2020 12:00:00 AM EST [facility]CW1 [facility] Unknown [address] [facility] [address] 03/29/2020 12:00:00 AM EST eCW1 [facility]) Unknown [address] [facility] [address] 03/24/2020 12:00:00 AM EST eCW1 ([facility]) Unknown [address] [facility] [address] 03/10/2020 12:00:00 AM EST eCW1 [facility]) Outpatient Attender: Alex Kuhn MD CPSCAORT-CPSCAEND 03/02 02:32:00 PM EST - 03/02/2020 02:33:00 PM EST E10.65 [facility] E10.65 Patient discharged. Unknown [address] [place] [address] 03/01/2020 12:00:00 AM EST eCW1 [facility]) Outpatient Attender: Kathy Mcnair/Анна/Indra/ Talon 02/23/2020 12:30:00 PM EST MEDENT ([facility]) ([id number]) For Template Wright [address] [place] [address] 02/23/2020 12:00:00 AM EST eCW1 ([facility]) Unknown [address] [facility] [address] 02/20/2020 12:00:00 AM EST eCW1 [facility]) Office Visit, Est Pt., Level 2 FC [address] [place] [address] 02/19/2020 12:00:00 AM EST eCW1 ([facility]) Unknown [address] [place] [address] 02/19/2020 12:00:00 AM EST eCW1 [facility]) Office Visit Attender: MOOSE CHAPA [facility] Office 01/31 12:00:00 PM EST MEDENT ([facility] Unknown [address] [facility] [address] 02/18/2020 12:00:00 AM EST eCW1 ([facility]) Unknown [address] [facility] [address] 02/10/2020 12:00:00 AM EST eCW1 ([facility]) Outpatient [address] [facility] [address] 02/09/2020 12:00:00 AM EST eCW1 ([facility]) Unknown [address] [facility] [address] 02/04/2020 12:00:00 AM EST eCW1 ([facility]) Office Visit Attender: MOOSE CHAPA [facility] Office 05/2019 01:45:00 PM EST MEDENT ([facility] Unknown [address] [facility] [address] 01/26/2020 12:00:00 AM EDT eCW1 ([facility]) Outpatient Attender: MOOSE CHAPA [facility] Office 01/01 02:30:00 PM EDT MEDENT ([facility] Outpatient Attender: Florencia Mcnair/Анна/Indra/Zeeshan mcdowell 01/20/2020 11:30:00 AM EDT MEDENT ([facility] Outpatient [address] [facility] [address] 01/19/2020 12:00:00 AM EDT eCW1 ([facility]) ([id number]) For [employer] [address] [place] [address] 01/09/2020 12:00:00 AM EDT eCW1 ([facility]) Unknown [address] [place] [address] 01/01/2020 12:00:00 AM EDT eCW1 ([facility]) [place] [address] [facility] [place] [address] 12/30/2019 12:00:00 AM EDT eCW1 ([facility]) Outpatient Attender: Florencia Mcnair/Анна/Indra/R eindl 12/17/2019 09:00:00 AM EDT [facility] Immunizations Vaccine Date Status Description Data Source(s) COVID-19 VACC,MRNA(MODERNA)/PF 09/06/2020 12:00:00 AM EDT completed [facility] COVID-19 VACCINE Moderna 09/06/2020 12:00:00 AM EDT completed [facility] Vaccine Series Complete: YESThis Data wa s Submitted to [facility] Via [employer]. COVID-19 VACC,MRNA(MODERNA)/PF 08/13/2020 12:00:00 AM EDT completed [facility] COVID-19 VACCINE Moderna 08/13/2020 12:00:00 AM EDT completed [facility] Vaccine Series Complete: NOThis Data was Submitted to [facility] Via [employer]. Medications Medication Brand Name Start Date Product Form Dose Route Admi nistrative Instructions Pharmacy Instructions Status Indications Reaction Description Data Source(s) Bisacodyl 10 MG Rectal Suppository Bisacodyl 10 MG 12/14/2020 12:00 :00 AM EDT 1.0 {suppository_as_needed} active Bisa codyl 10 MG eCW1 ([facility]) Docusate Sodium 100 MG Oral Capsule [Colace] Colace 100 MG C olace 100 MG 12/14/2020 12:00:00 AM EDT 1.0 {capsule_as_needed} suspended Colace 100 MG eCW1 ([facility]) Bisacodyl 10 MG Rectal Suppository Bisacodyl 10 MG 12/14/2020 12:00 :00 AM EDT 1.0 {suppository_as_needed} suspended Bi sacodyl 10 MG eCW1 ([facility]) Bisacodyl 10 MG Rectal Suppository Bisacodyl 10 MG 12/14/2020 12:00 :00 AM EDT 1.0 {suppository_as_needed} suspended Bi sacodyl 10 MG eCW1 ([facility]) Bisacodyl 10 MG Rectal Suppository Bisacodyl 10 MG 12/14/2020 12:00 :00 AM EDT 1.0 {suppository_as_needed} suspended Bi sacodyl 10 MG eCW1 ([facility]) Docusate Sodium 100 MG Oral Capsule [Colace] Colace 100 MG C olace 100 MG 12/14/2020 12:00:00 AM EDT 1.0 {capsule_as_needed} active Colace 100 MG eCW1 ([facility]) Docusate Sodium 100 MG Oral Capsule [Colace] Colace 100 MG C olace 100 MG 12/14/2020 12:00:00 AM EDT 1.0 {capsule_as_needed} suspended Colace 100 MG eCW1 ([facility]) Bisacodyl 10 MG Rectal Suppository Bisacodyl 10 MG 12/14/2020 12:00 :00 AM EDT 1.0 {suppository_as_needed} suspended Bi sacodyl 10 MG eCW1 ([facility]) Bisacodyl 10 MG Rectal Suppository Bisacodyl 10 MG 12/14/2020 12:00 :00 AM EDT 1.0 {suppository_as_needed} suspended Bi sacodyl 10 MG eCW1 ([facility]) Bisacodyl 10 MG Rectal Suppository Bisacodyl 10 MG 12/14/2020 12:00 :00 AM EDT 1.0 {suppository_as_needed} suspended Bi sacodyl 10 MG eCW1 ([facility]) Docusate Sodium 100 MG Oral Capsule [Colace] Colace 100 MG C olace 100 MG 12/14/2020 12:00:00 AM EDT 1.0 {capsule_as_needed} suspended Colace 100 MG eCW1 ([facility]) Docusate Sodium 100 MG Oral Capsule [Colace] Colace 100 MG C olace 100 MG 12/14/2020 12:00:00 AM EDT 1.0 {capsule_as_needed} suspended Colace 100 MG eCW1 ([facility]) Docusate Sodium 100 MG Oral Capsule [Colace] Colace 100 MG C olace 100 MG 12/14/2020 12:00:00 AM EDT 1.0 {capsule_as_needed} suspended Colace 100 MG eCW1 ([facility]) Docusate Sodium 100 MG Oral Capsule [Colace] Colace 100 MG C olace 100 MG 12/14/2020 12:00:00 AM EDT 1.0 {capsule_as_needed} suspended Colace 100 MG eCW1 ([facility]) Bisacodyl 10 MG Rectal Suppository Bisacodyl 10 MG 12/14/2020 12:00 :00 AM EDT 1.0 {suppository_as_needed} suspended Bi sacodyl 10 MG eCW1 ([facility]) Docusate Sodium 100 MG Oral Capsule [Colace] Colace 100 MG C olace 100 MG 12/14/2020 12:00:00 AM EDT 1.0 {capsule_as_needed} suspended Colace 100 MG eCW1 ([facility]) Ketoconazole 20 MG/ML Topical Cream Ketoconazole 2 % Ketocon azole 2 % 09/16/2020 12:00:00 AM EDT suspended Keto conazole 2 % eCW1 ([facility]) Ketoconazole 20 MG/ML Topical Cream Ketoconazole 2 % Ketocon azole 2 % 09/16/2020 12:00:00 AM EDT active Ketocon azole 2 % eCW1 ([facility]) Ketoconazole 20 MG/ML Topical Cream Ketoconazole 2 % Ketocon azole 2 % 09/16/2020 12:00:00 AM EDT active Ketocon azole 2 % eCW1 ([facility]) Ketoconazole 20 MG/ML Topical Cream Ketoconazole 2 % Ketocon azole 2 % 09/16/2020 12:00:00 AM EDT suspended Keto conazole 2 % eCW1 ([facility]) Ketoconazole 20 MG/ML Topical Cream Ketoconazole 2 % Ketocon azole 2 % 09/16/2020 12:00:00 AM EDT suspended Keto conazole 2 % eCW1 ([facility]) Ketoconazole 20 MG/ML Topical Cream Ketoconazole 2 % Ketocon azole 2 % 09/16/2020 12:00:00 AM EDT suspended Keto conazole 2 % eCW1 ([facility]) Ketoconazole 20 MG/ML Topical Cream Ketoconazole 2 % Ketocon azole 2 % 09/16/2020 12:00:00 AM EDT suspended Keto conazole 2 % eCW1 ([facility]) Ketoconazole 20 MG/ML Topical Cream Ketoconazole 2 % Ketocon azole 2 % 09/16/2020 12:00:00 AM EDT suspended Keto conazole 2 % eCW1 ([facility]) Ketoconazole 20 MG/ML Topical Cream Ketoconazole 2 % Ketocon azole 2 % 09/16/2020 12:00:00 AM EDT active Ketocon azole 2 % eCW1 ([facility]) Ketoconazole 20 MG/ML Topical Cream Ketoconazole 2 % Ketocon azole 2 % 09/16/2020 12:00:00 AM EDT active Ketocon azole 2 % eCW1 ([facility]) Ketoconazole 20 MG/ML Topical Cream Ketoconazole 2 % Ketocon azole 2 % 09/16/2020 12:00:00 AM EDT suspended Keto conazole 2 % eCW1 ([facility]) Prednisone 1 MG Oral Tablet predniSONE 1 MG predniSONE 1 MG 07/27/2020 12:00:00 AM EDT active predniSONE 1 MG e CW1 ([facility]) Prednisone 1 MG Oral Tablet PredniSONE 1 MG PredniSONE 1 MG 07/27/2020 12:00:00 AM EDT active PredniSONE 1 MG e CW1 ([facility]) Prednisone 1 MG Oral Tablet predniSONE 1 MG predniSONE 1 MG 07/27/2020 12:00:00 AM EDT active predniSONE 1 MG e CW1 ([facility]) Prednisone 1 MG Oral Tablet predniSONE 1 MG predniSONE 1 MG 07/27/2020 12:00:00 AM EDT active predniSONE 1 MG e CW1 ([facility]) Prednisone 1 MG Oral Tablet PredniSONE 1 MG PredniSONE 1 MG 07/27/2020 12:00:00 AM EDT active PredniSONE 1 MG e CW1 ([facility]) Prednisone 1 MG Oral Tablet predniSONE 1 MG predniSONE 1 MG 07/27/2020 12:00:00 AM EDT active predniSONE 1 MG e CW1 ([facility]) Prednisone 1 MG Oral Tablet predniSONE 1 MG predniSONE 1 MG 07/27/2020 12:00:00 AM EDT active predniSONE 1 MG e CW1 ([facility]) Prednisone 1 MG Oral Tablet PredniSONE 1 MG PredniSONE 1 MG 07/27/2020 12:00:00 AM EDT active PredniSONE 1 MG e CW1 ([facility]) Prednisone 1 MG Oral Tablet predniSONE 1 MG predniSONE 1 MG 07/27/2020 12:00:00 AM EDT active predniSONE 1 MG e CW1 ([facility]) Prednisone 1 MG Oral Tablet PredniSONE 1 MG PredniSONE 1 MG 07/27/2020 12:00:00 AM EDT active PredniSONE 1 MG e 1 ([facility]) Prednisone 1 MG Oral Tablet predniSONE 1 MG predniSONE 1 MG 07/27/2020 12:00:00 AM EDT active predniSONE 1 MG e CW1 ([facility]) Prednisone 1 MG Oral Tablet predniSONE 1 MG predniSONE 1 MG 07/27/2020 12:00:00 AM EDT active predniSONE 1 MG e CW1 ([facility]) Prednisone 1 MG Oral Tablet predniSONE 1 MG predniSONE 1 MG 07/27/2020 12:00:00 AM EDT active predniSONE 1 MG e CW1 ([facility]) Prednisone 1 MG Oral Tablet predniSONE 1 MG predniSONE 1 MG 07/27/2020 12:00:00 AM EDT active predniSONE 1 MG e CW1 ([facility]) Prednisone 1 MG Oral Tablet PredniSONE 1 MG PredniSONE 1 MG 07/27/2020 12:00:00 AM EDT active PredniSONE 1 MG e CW1 ([facility]) Prednisone 1 MG Oral Tablet PredniSONE 1 MG PredniSONE 1 MG 07/27/2020 12:00:00 AM EDT active PredniSONE 1 MG e CW1 ([facility]) Prednisone 1 MG Oral Tablet predniSONE 1 MG predniSONE 1 MG 07/27/2020 12:00:00 AM EDT active predniSONE 1 MG e CW1 ([facility]) aripiprazole 5 MG Oral Tablet Aripiprazole 5 MG Aripiprazole 5 MG 07/06/2020 12:00:00 AM EDT 1.0 {tablet} active Ar ipiprazole 5 MG eCW1 ([facility]) aripiprazole 5 MG Oral Tablet ARIPiprazole 5 MG ARIPiprazole 5 MG 07/06/2020 12:00:00 AM EDT 1.0 {tablet} active AR IPiprazole 5 MG eCW1 ([facility]) aripiprazole 5 MG Oral Tablet ARIPiprazole 5 MG ARIPiprazole 5 MG 07/06/2020 12:00:00 AM EDT 1.0 {tablet} active AR IPiprazole 5 MG eCW1 ([facility]) aripiprazole 5 MG Oral Tablet Aripiprazole 5 MG Aripiprazole 5 MG 07/06/2020 12:00:00 AM EDT 1.0 {tablet} active Ar ipiprazole 5 MG eCW1 ([facility]) aripiprazole 5 MG Oral Tablet Aripiprazole 5 MG Aripiprazole 5 MG 07/06/2020 12:00:00 AM EDT 1.0 {tablet} active Ar ipiprazole 5 MG eCW1 ([facility]) aripiprazole 5 MG Oral Tablet ARIPiprazole 5 MG ARIPiprazole 5 MG 07/06/2020 12:00:00 AM EDT 1.0 {tablet} active AR IPiprazole 5 MG eCW1 ([facility]) aripiprazole 5 MG Oral Tablet ARIPiprazole 5 MG ARIPiprazole 5 MG 07/06/2020 12:00:00 AM EDT 1.0 {tablet} active AR IPiprazole 5 MG eCW1 ([facility]) aripiprazole 5 MG Oral Tablet Aripiprazole 5 MG Aripiprazole 5 MG 07/06/2020 12:00:00 AM EDT 1.0 {tablet} active Ar ipiprazole 5 MG eCW1 ([facility]) aripiprazole 5 MG Oral Tablet ARIPiprazole 5 MG ARIPiprazole 5 MG 07/06/2020 12:00:00 AM EDT 1.0 {tablet} active AR IPiprazole 5 MG eCW1 ([facility]) aripiprazole 5 MG Oral Tablet Aripiprazole 5 MG Aripiprazole 5 MG 07/06/2020 12:00:00 AM EDT 1.0 {tablet} active Ar ipiprazole 5 MG eCW1 ([facility]) aripiprazole 5 MG Oral Tablet Aripiprazole 5 MG Aripiprazole 5 MG 07/06/2020 12:00:00 AM EDT 1.0 {tablet} active Ar ipiprazole 5 MG eCW1 ([facility]) aripiprazole 5 MG Oral Tablet ARIPiprazole 5 MG ARIPiprazole 5 MG 07/06/2020 12:00:00 AM EDT 1.0 {tablet} active AR IPiprazole 5 MG eCW1 ([facility] [facility]) aripiprazole 5 MG Oral Tablet Aripiprazole 5 MG Aripiprazole 5 MG 07/06/2020 12:00:00 AM EDT 1.0 {tablet} active Ar ipiprazole 5 MG eCW1 ([facility]) aripiprazole 5 MG Oral Tablet ARIPiprazole 5 MG ARIPiprazole 5 MG 07/06/2020 12:00:00 AM EDT 1.0 {tablet} active AR IPiprazole 5 MG eCW1 ([facility]) aripiprazole 5 MG Oral Tablet ARIPiprazole 5 MG ARIPiprazole 5 MG 07/06/2020 12:00:00 AM EDT 1.0 {tablet} active AR IPiprazole 5 MG eCW1 ([facility]) aripiprazole 5 MG Oral Tablet ARIPiprazole 5 MG ARIPiprazole 5 MG 07/06/2020 12:00:00 AM EDT 1.0 {tablet} active AR IPiprazole 5 MG eCW1 ([facility]) aripiprazole 5 MG Oral Tablet ARIPiprazole 5 MG ARIPiprazole 5 MG 07/06/2020 12:00:00 AM EDT 1.0 {tablet} active AR IPiprazole 5 MG eCW1 ([facility]) aripiprazole 5 MG Oral Tablet ARIPiprazole 5 MG ARIPiprazole 5 MG 07/06/2020 12:00:00 AM EDT 1.0 {tablet} active AR IPiprazole 5 MG eCW1 ([facility]) aripiprazole 5 MG Oral Tablet Aripiprazole 5 MG Aripiprazole 5 MG 07/06/2020 12:00:00 AM EDT 1.0 {tablet} active Ar ipiprazole 5 MG eCW1 ([facility]) aripiprazole 5 MG Oral Tablet Aripiprazole 5 MG Aripiprazole 5 MG 07/06/2020 12:00:00 AM EDT 1.0 {tablet} active Ar ipiprazole 5 MG eCW1 ([facility]) Cephalexin 500 MG Oral Capsule Cephalexin 05/27/2020 12:00:00 AM EST ORAL completed MED[facility] ([facility], ) Cephalexin 500 MG Oral Capsule [Keflex] Keflex 04/12/2020 12:00:0 0 AM EST ORAL completed MEDENT ([facility], ) Misc. Devices - UNK 03/11/2020 12:00:00 AM EST active Misc. Devices - eCW1 ([facility]) Misc. Devices - UNK 03/11/2020 12:00:00 AM EST active Misc. Devices - eCW1 ([facility]) Misc. Devices - UNK 03/11/2020 12:00:00 AM EST active Misc. Devices - eCW1 ([facility]) Misc. Devices - UNK 03/11/2020 12:00:00 AM EST active Misc. Devices - eCW1 ([facility]) Misc. Devices - UNK 03/11/2020 12:00:00 AM EST active Misc. Devices - eCW1 ([facility]) Misc. Devices - UNK 03/11/2020 12:00:00 AM EST active Misc. Devices - eCW1 ([facility]) Misc. Devices - UNK 03/11/2020 12:00:00 AM EST active Misc. Devices - eCW1 ([facility]) Misc. Devices - UNK 03/11/2020 12:00:00 AM EST active Misc. Devices - eCW1 ([facility]) Misc. Devices - UNK 03/11/2020 12:00:00 AM EST active Misc. Devices - eCW1 ([facility]) Misc. Devices - UNK 03/11/2020 12:00:00 AM EST active Misc. Devices - eCW1 ([facility]) Misc. Devices - UNK 03/11/2020 12:00:00 AM EST active Misc. Devices - eCW1 ([facility]) Misc. Devices - UNK 03/11/2020 12:00:00 AM EST active Misc. Devices - eCW1 ([facility]) Misc. Devices - UNK 03/11/2020 12:00:00 AM EST active Misc. Devices - eCW1 ([facility]) Misc. Devices - UNK 03/11/2020 12:00:00 AM EST active Misc. Devices - eCW1 ([facility]) Misc. Devices - UNK 03/11/2020 12:00:00 AM EST active Misc. Devices - eCW1 ([facility]) Misc. Devices - UNK 03/11/2020 12:00:00 AM EST active Misc. Devices - eCW1 ([facility]) Misc. Devices - UNK 03/11/2020 12:00:00 AM EST active Misc. Devices - eCW1 ([facility]) Misc. Devices - UNK 03/11/2020 12:00:00 AM EST active Misc. Devices - eCW1 ([facility]) Misc. Devices - UNK 03/11/2020 12:00:00 AM EST active Misc. Devices - eCW1 ([facility]) Misc. Devices - UNK 03/11/2020 12:00:00 AM EST active Misc. Devices - eCW1 ([facility]) Wheelchair - Wheelchair - 02/24/2020 12:00:00 AM EST active Wheelchair - eCW1 ([facility]) Wheelchair - Wheelchair - 02/24/2020 12:00:00 AM EST active Wheelchair - eCW1 ([facility]) Wheelchair - Wheelchair - 02/24/2020 12:00:00 AM EST active Wheelchair - eCW1 ([facility]) Wheelchair - Wheelchair - 02/24/2020 12:00:00 AM EST active Wheelchair - eCW1 ([facility]) Wheelchair - Wheelchair - 02/24/2020 12:00:00 AM EST active Wheelchair - eCW1 ([facility]) Wheelchair - Wheelchair - 02/24/2020 12:00:00 AM EST active Wheelchair - eCW1 ([facility]) Wheelchair - Wheelchair - 02/24/2020 12:00:00 AM EST active Wheelchair - eCW1 ([facility]) Wheelchair - Wheelchair - 02/24/2020 12:00:00 AM EST active Wheelchair - eCW1 ([facility]) Wheelchair - Wheelchair - 02/24/2020 12:00:00 AM EST active Wheelchair - eCW1 ([facility]) Wheelchair - Wheelchair - 02/24/2020 12:00:00 AM EST active Wheelchair - eCW1 ([facility]) Wheelchair - Wheelchair - 02/24/2020 12:00:00 AM EST active Wheelchair - eCW1 ([facility]) Wheelchair - Wheelchair - 02/24/2020 12:00:00 AM EST active Wheelchair - eCW1 ([facility]) Wheelchair - Wheelchair - 02/24/2020 12:00:00 AM EST active Wheelchair - eCW1 ([facility]) Wheelchair - Wheelchair - 02/24/2020 12:00:00 AM EST active Wheelchair - eCW1 ([facility]) Wheelchair - Wheelchair - 02/24/2020 12:00:00 AM EST active Wheelchair - eCW1 ([facility]) Wheelchair - Wheelchair - 02/24/2020 12:00:00 AM EST active Wheelchair - eCW1 ([facility]) Wheelchair - Wheelchair - 02/24/2020 12:00:00 AM EST active Wheelchair - eCW1 ([facility]) Wheelchair - Wheelchair - 02/24/2020 12:00:00 AM EST active Wheelchair - eCW1 ([facility]) Wheelchair - Wheelchair - 02/24/2020 12:00:00 AM EST active Wheelchair - eCW1 ([facility]) Wheelchair - Wheelchair - 02/24/2020 12:00:00 AM EST active Wheelchair - eCW1 ([facility]) Wheelchair - Wheelchair - 02/24/2020 12:00:00 AM EST active Wheelchair - eCW1 ([facility]) Wheelchair - Wheelchair - 02/24/2020 12:00:00 AM EST active Wheelchair - eCW1 ([facility]) Wheelchair - Wheelchair - 02/24/2020 12:00:00 AM EST active Wheelchair - eCW1 ([facility]) Cephalexin 500 MG Oral Capsule Cephalexin 02/02/2020 [...] 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 GABRIEL RHONDA [id number] SELF [id number] MEDICARE [id number] SELF [id number] A MEDICARE PART A [id number] Patient [id number] MEDICARE [id number] SP [id number] A MEDICARE A [id number] Self [id number] A MEDICARE [id number] SP [id number] A MEDICAID M [id number] Self [id number] MEDICAID [id number] SP [id number] MEDICAID [id number] SP [id number] [facility] [id number] SP [id number] [facility] [id number] SP [id number] [facility] [id number] SP [id number] MEDICARE [id number] SP [id number] MEDICARE COMPLETE [id number] SP [id number] MEDICARE COMPLETE [id number] SP [id number] WELLCARE [id number] SP [id number] WELLCARE [id number] SP [id number] WELLCARE O [id number] S [id number] WELLCARE [id number] S [id number] WELLCARE O [id number] S [id number] MEDICARE [id number] SP [id number] MEDICAID [id number] SP [id number] MEDICARE C [id number] S [id number] WELLCARE [id number] S [id number] [id number] MEDICARE [id number] S [id number] WELLCARE [id number] S [id number] MEDICARE -RECURRING [id number] 18 [id number] MEDICAID -RECURRING [id number] ANSI-Medicaid [id number] ANSI-Medicare Part B [id number] ANSI-Medicaid [id number] ANSI-Medicare Part B [id number] ANSI-Medicare Part B [id number] ANSI-Medicaid [id number] ANSI-Medicare Part B [id number] ANSI-Medicaid [id number] ANSI-Medicaid [id number] ANSI-Medicare Part B [id number] ANSI-Medicaid [id number] ANSI-Medicare Part B [id number] ANSI-Medicaid [id number] ANSI-Medicare Part B [id number] ANSI-Medicaid [id number] ANSI-Medicare Part B [id number] ANSI-Medicare Part B [id number] ANSI-Medicaid [id number] ANSI-Medicare Part B [id number] ANSI-Medicaid [id number] ANSI-Medicare Part B [id number] ANSI-Medicaid [id number] ANSI-Medicare Part B [id number] ANSI-Medicaid [id number] ANSI-Medicaid [id number] ANSI-Medicare Part B [id number] ANSI-Medicare Part B [id number] ANSI-Medicaid [id number] MEDICARE -RECURRING [id number] 18 [id number] ANSI-Medicaid [id number] ANSI-Medicare Part B [id number] ANSI-Medicaid [id number] ANSI-Medicare Part B [id number] ANSI-Medicare Part B [id number] ANSI-Medicaid [id number] Medicaid [place] Medigap Part B [id number] Self [id number] Medicare Upstate/[facility] Medicare Primary [id number] Self [id number] ANSI-Medicare Part B [id number] ANSI-Medicaid [id number] ANSI-Medicaid [id number] ANSI-Medicare Part B [id number] ANSI-Medicaid [id number] ANSI-Medicare Part B [id number] ANSI-Medicare Part B [id number] ANSI-Medicaid [id number] ANSI-Medicare Part B [id number] ANSI-Medicaid [id number] MEDICARE [id number] ANSI-Medicare Part B [id number] ANSI-Medicaid [id number] ANSI-Medicaid [id number] ANSI-Medicare Part B [id number] ANSI-Medicare Part B [id number] ANSI-Medicaid [id number] ANSI-Medicaid [id number] ANSI-Medicare Part B [id number] ANSI-Medicaid [id number] ANSI-Medicare Part B [id number] ANSI-Medicare Part B [id number] ANSI-Medicaid [id number] ANSI-Medicaid [id number] ANSI-Medicare Part B [id number] ANSI-Medicaid [id number] ANSI-Medicare Part B [id number] ANSI-Medicaid [id number] ANSI-Medicare Part B [id number] ANSI-Medicaid [id number] ANSI-Medicare Part B [id number] ANSI-Medicaid [id number] ANSI-Medicare Part B [id number] ANSI-Medicare Part B [id number] ANSI-Medicaid [id number] ANSI-Medicare Part B [id number] ANSI-Medicaid [id number] MEDICARE C [id number] S [id number] A [facility] MEDICARE PART B C [id number] S [id number] Medicaid [facility] Part B [id number] Self [id number] Medicare [place]state/[facility] Medicare Primary [id number] Self [id number] [facility] C [id number] S [id number] Medicaid [facility] Part B [id number] Self [id number] Medicare [place]/[facility] Medicare Primary [id number] Self [id number] Medicaid [place] [facility] Part B [id number] Self [id number] Medicare [facility] Medicare Primary [id number] Self [id number] MEDICAID [id number] SP [id number] MEDICAID [id number] SP [id number] MEDICAID -O/P [id number] MEDICARE -O/P [id number] 18 [id number] OTHER WORKERS COMPENSATION [id number] SP [id number] MEDICAID -CLINIC [id number] MEDICARE -CLINIC [id number] 18 [id number] WORKMANS COMPENSATION -O/ [id number] 18 [id number] MEDICAID -PHYSICIAN [id number] WORKMANS COMPENSATION -O/P [id number] 18 [id number] MEDICARE -PHYSICIAN [id number] 18 [id number] [facility] MEDICAID [id number] SP [id number] MEDICARE COMPLETE [id number] SP [id number] MEDICARE [id number] SP [id number] [facility] MEDICARE [id number] S [id number] MEDICAID [id number] S [id number] MEDICARE COMPLETE [id number] SP [id number] [facility] [id number] SP [id number] MEDICARE COMPLETE-UHC O [id number] S [id number] MEDICAID M [id number] S [id number] WELLCARE [id number] SP [id number] MEDICARE COMPLETE-UH O [id number] S [id number] [facility] MEDICARE [id number] S [id number] Problems, Conditions, and Diagnoses Code Display Name Description Problem Type Effective Dates Data Source(s) 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 Diagnosis 01/24/2021 12:59:00 PM EDT [facility] Z96.41 Presence of insulin pump (external) (int ernal) PRESENCE OF INSULIN PUMP (EXTERNAL) (INTERNAL) Diagnosis 01/24/2021 12:59:00 PM EDT [facility] E10.65 Type 1 diabetes mellitus with hyperglyce sera TYPE 1 DIABETES MELLITUS WITH HYPERGLYCEMIA Diagnosis 01/24/2021 12:59:00 PM EDT [facility] S88.912A 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, level unspecified, initial encounter COMPLETE TRAUMATIC AMPUTATION OF L LOW LEG, LEVEL UNSP , INIT Diagnosis 10/11/2020 10:38:00 AM EDT [facility] S88.911A Complete traumatic amputatio n of right lower leg, level unspecified, initial encounter COMPLETE TRAUMATIC AMPUTATION OF R LOW LEG, LEVEL UNSP , INIT Diagnosis 10/11/2020 10:38:00 AM EDT [facility] E78.5 Hyperlipidemia, unspecified HYPERLIPIDEMIA, UNSPECIFIE D Diagnosis 10/11/2020 10:38:00 AM EDT [facility] E27.40 Unspecified adrenocortical insufficiency UNSPECIFIED ADRENOCORTICAL INSUFFICIENCY Diagnosis 10/11/2020 10:38:00 AM EDT [facility] M86.9 [id number] Osteomyelitis of other site, unspecified type Problem 01/07/2021 12:00:00 AM EDT eCW1 ([facility]) E16.1 Hypoglycemia Hypoglycemia Problem 01/06/2021 12:00:00 A M EDT [facility] ([facility], ) E11.59 Peripheral vascular disorder due to diab etes mellitus Peripheral vascular disorder due to diabetes mellitus Problem 01/06/2021 12:00:00 AM ED T [facility] ([facility], ) T81.30xA Traumatic wound dehiscence Traumatic wound dehiscence Problem 12/17/2020 12:00:00 AM EDT [facility] ([facility], ) 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 Problem 12/17/2020 12:00:00 AM EDT [facility] ([facility], ) D61.818 [id number] Pancytopenia Problem 12/16/2020 12:00:00 AM EDT eCW1 ([facility]) S88.111A [id number] Below-knee amputation of right lower extr emity Problem 04/06/2020 12:00:00 AM EST eCW1 ([facility]) Z89.511 [id number] Acquired absence of right leg below knee Problem 03/11/2020 12:00:00 AM EST eCW1 ([facility]) Z89.512 [id number] 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 Problem 03/11/2020 12:00:00 AM EST eCW1 ([facility]) S88.119A [id number] Amputation below knee Problem 02/24/2020 12: 00:00 AM EST eCW1 ([facility]) M86.9 [id number] Osteomyelitis of right foot, unspecif ied type Problem 02/19/2020 12:00:00 AM EST eCW1 ([facility]) [id number] O/E - Amputated left below knee O/E - Amputated left below knee Problem 01/26/2020 12:00:00 AM EDT [facility] ([facility] [id number] Pain in limb Pain in limb Problem 01/26/2020 12:00:00 A M EDT [facility] ([facility] [id number] Gangrenous disorder Gangrenous disorder Problem 1 12:00:00 AM EDT [facility] ([facility] [id number] Pressure ulcer of right foot stage 4 Pre ssure ulcer of right foot stage 4 Problem 01/26/2020 12:00:00 AM EDT [facility] ([facility] [id number] Type 2 diabetes mellitus with ulcer Type 2 diabetes mellitus with ulcer Problem 01/26/2020 12:00:00 AM EDT [facility] ([facility] L97.514 [id number] 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 Problem 12/31/2019 12:00:00 AM EDT [facility] ([facility]) E11.621 [id number] Type 2 diabetes mellitus with foot ulcer Problem 12/31/2019 12:00:00 AM [place] [address] ([facility]) Surgeries/Procedures Procedure Description Date Indications Data Source(s) Hospital outpatient clinic visit for assessment and ma nagement of a patient Hospital Outpatient Clinic Visit 01/24/2021 12:00:00 AM [facility] GLUC BLD GLUC MNTR DEV CLEARED FDA SPEC HOME USE GLUCOSE BLO OD TEST 01/24/2021 12:00:00 AM [facility] COLLECTION VENOUS BLOOD VENIPUNCTURE ROUTINE VENIPUNCTURE 12:00:00 AM [facility] HEMOGLOBIN GLYCOSYLATED A1C GLYCOSYLATED HEMOGLOBIN TEST 12:00:00 AM [facility] LIPID PANEL LIPID PANEL 01/24/2021 12:00:00 AM [facility] BASIC METABOLIC PANEL CALCIUM TOTAL METABOLIC PANEL TOTAL CA 01/24/2021 12:00:00 AM [facility] Debridement Skin, Subcutaneous Tissue & Muscle 021 12:00:00 AM [facility] OFFICE OUTPATIENT VISIT 15 MINUTES 01/06/2021 12:00:00 AM EDT [facility] AMP LEG THRU TIBIA&FIBULA RE-AMPUTATION 12/08/2020 12: 00:00 AM EDT [facility] ([facility], ) OFFICE OUTPATIENT VISIT 15 MINUTES 11/11/2020 12:00:00 AM EDT [facility] ([facility], ) OFFICE OUTPATIENT VISIT 15 MINUTES 11/01/2020 12:00:00 AM EDT [facility] ([facility], ) COMPREHENSIVE METABOLIC PANEL COMPREHEN METABOLIC PANEL 09/30 12:00:00 AM [facility] OFFICE OUTPATIENT VISIT 15 MINUTES 08/12/2020 12:00:00 AM EDT [facility] ([facility], ) OFFICE OUTPATIENT VISIT 15 MINUTES 07/08/2020 12:00:00 AM EDT [facility] ([facility], ) OFFICE OUTPATIENT VISIT 15 MINUTES 06/07/2020 12:00:00 AM EST [facility] ([facility]) Amputation Below Knee 03/03/2020 12:00:00 AM EST [facility] ([facility]) FINE NEEDLE ASPIRATION W/O IMAGING GUIDANCE 02/23/2020 12:00:00 AM EST eCW1 ([facility]) Amputation Metatarsal W/Toe 01/28/2020 12:00:00 AM EDT [facility] ([facility] FINE NEEDLE ASPIRATION W/O IMAGING GUIDANCE 01/19/2020 12:00:00 AM EDT eCW1 ([facility]) FINE NEEDLE ASPIRATION W/O IMAGING GUIDANCE 01/09/2020 12:00:00 AM EDT eCW1 ([facility]) Revascularization,Endovascular,Transluminal Angioplasty 12/31/2019 12:00:00 AM EDT [facility] ([facility]) REVSC OPN/PRQ TIB/FABIENNE W/ANGIOPLASTY UNI 12/31/2019 12 :00:00 AM EDT [facility] ([facility]) REVSC OPN/PRQ TIB/FABIENNE W/ANGIOPLASTY UNI EA VSL 2019 12:00:00 AM EDT [facility] ([facility]) Moderate Sedation Services; Same Phys Intl 15 Mins; PT >= 5 Years 12/31/2019 12:00:00 AM EDT [facility] ([facility]) Results ID Date Data Source [id number] 01/24/2021 05:41:00 PM EDT [facility] Name Value Range Interpretation Code Description Data Mireille rce(s) Supporting Document(s) Hemoglobin A1C % Less than 5.7% Above high normal [facility] HBA1C: Normal: Less than 5.7% Prediabetes: 5.7% to 6.4% Diabetes: 6.5% or higher HA1C % vs Estimated Average Glucose (eAG) % eAG % eAG 6% 126 mg/dL 10% 240 mg/dL 7% 154 mg/dL 11% 269 mg/dL 8% 183 mg/dL 12% 298 mg/dL 9% 212 mg/dL Reference: [place] [employer], 2017 ID Date Data Source [id number] 01/24/2021 05:34:00 PM EDT [facility] Name Value Range Interpretation Code Description Data Mireille rce(s) Supporting Document(s) Sodium 137 mmol/L 137-145 Normal (applies to non-numeric resul ts) [facility] Potassium 3.5-5.1 Normal (applies to non-numeric resul ts) [facility] Chloride 107 mmol/L 98-112 Normal (applies to non-numeric resul ts) [facility] Carbon Dioxide CO2 22.0-33.0 Normal (applies to non-numer ic results) [facility] Anion Gap 4.0-11.0 Normal (applies to non-numeric resul ts) [facility] BUN 16 mg/dL 9-20 Normal (applies to non-numeric resul ts) [facility] Creatinine 0.80-1.50 Normal (applies to non-numeric resul ts) [facility] GFR 55 mL/min >60 Below low normal [facility] Result based on MDRD formula. Glucose Level 107 mg/dL 74-99 Above high normal [facility] The reference range is only applicable w hen fasting. Calcium-Uncorrected 8.4-10.2 Normal (applies to non-nume nelson results) [facility] Corrected Calcium 8.4-10.2 Normal (applies to non-numeri c results) [facility] ID Date Data Source [id number] 01/24/2021 05:34:00 PM EDT [facility] Name Value Range Interpretation Code Description Data Mireille rce(s) Supporting Document(s) Triglycerides 52 mg/dL 0-150 Normal (applies to non-numeric re sults) [facility] Cholesterol 119 mg/dL 0-200 Normal (applies to non-numeric resu lts) [facility] LDL Cholesterol,Direct 50 mg/dL <100 Normal (applies to non-n umeric results) [facility] LDL Interpretative Data Optimal <100 (mg/dL) Near optimal 100-129 (mg/dL) Borderline High 130-159 (mg/dL) High 160-189 (mg/dL) Very High >190 (mg/dL) HDL Cholesterol 63 mg/dL 40-60 Above high normal [facility] CHOL/HDL Ratio Normal (applies to non-numeric r esults) [facility] NATIONAL CHOLESTEROL GUIDEL [facility], [...] Average 13.5 11.0 ID Date Data Source [id number] 01/10/2021 06:21:00 AM EDT [facility] Name Value Range Interpretation Code Description Data Mireille rce(s) Supporting Document(s) SARS coronavirus 2 RNA [Presence] in Res piratory specimen by DAILY with probe detection NEGATIVE [facility] This lab was ordered by [facility] a nd reported by [facility]. ID Date Data Source [id number] 01/02/2021 02:12:00 PM EDT [facility] Name Value Range Interpretation Code Description Data Mireille rce(s) Supporting Document(s) SARS-CoV-2 (COVID 19) NEGATIVE - SARS-CoV-2 (COVID19) [facility] This lab was ordered by [facility] a nd reported by [facility]. ID Date Data Source [id number] 12/19/2020 11:07:00 PM EDT [facility] Name Value Range Interpretation Code Description Data Mireille rce(s) Supporting Document(s) SARS coronavirus 2 RNA [Presence] in Res piratory specimen by DAILY with probe detection NEGATIVE [facility] This lab was ordered by [facility] a nd reported by [facility]. ID Date Data Source [id number] 12/06/2020 12:21:00 AM EDT [facility] Name Value Range Interpretation Code Description Data Mireille rce(s) Supporting Document(s) SARS coronavirus 2 RNA [Presence] in Res piratory specimen by DAILY with probe detection NEGATIVE [facility] This lab was ordered by [facility] a nd reported by [facility]. ID Date Data Source [id number] 10/11/2020 01:58:00 PM EDT [facility] Name Value Range Interpretation Code Description Data Mireille rce(s) Supporting Document(s) Hemoglobin A1C % Less than 5.7% Above high normal [facility] HBA1C: Normal: Less than 5.7% Prediabetes: 5.7% to 6.4% Diabetes: 6.5% or higher HA1C % vs Estimated Average Glucose (eAG) % eAG % eAG 6% 126 mg/dL 10% 240 mg/dL 7% 154 mg/dL 11% 269 mg/dL 8% 183 mg/dL 12% 298 mg/dL 9% 212 mg/dL Reference: [place] [employer], 2017 ID Date Data Source [id number] 10/11/2020 01:21:00 PM EDT [facility] Name Value Range Interpretation Code Description Data Mireille rce(s) Supporting Document(s) Sodium 137 mmol/L 137-145 Normal (applies to non-numeric resul ts) [facility] Potassium 3.5-5.1 Normal (applies to non-numeric resul ts) [facility] Chloride 102 mmol/L 98-112 Normal (applies to non-numeric resul ts) [facility] Carbon Dioxide CO2 22.0-33.0 Normal (applies to non-numer ic results) [facility] Anion Gap 4.0-11.0 Normal (applies to non-numeric resul ts) [facility] BUN 16 mg/dL 9-20 Normal (applies to non-numeric resul ts) [facility] Creatinine 0.80-1.50 Normal (applies to non-numeric resul ts) [facility] GFR 66 mL/min >60 Normal (applies to non-numeric resul ts) [facility] Result based on MDRD formula. Glucose Level 194 mg/dL 74-99 Above high normal [facility] The reference range is only applicable w hen fasting. Calcium-Uncorrected 8.4-10.2 Normal (applies to non-nume nelson results) [facility] Corrected Calcium 8.4-10.2 Normal (applies to non-numeri c results) [facility] Bilirubin,Total 0.2-1.3 Normal (applies to non-numeric results) [facility] SGOT(AST) 42 U/L 17-59 Normal (applies to non-numeric resul ts) [facility] SGPT(ALT) 57 U/L 21-72 Normal (applies to non-numeric resul ts) [facility] Alkaline Phosphatase 89 U/L 38-126 Normal (applies to non-num gage results) [facility] can increase Alkaline Phosp le vels up to 2 times the normal adult value. Normal values for children and adolescents are 2 to 3 times the normal adult value. Total Protein 6.3-8.2 Normal (applies to non-numeric re sults) [facility] Albumin 3.5-5.0 Normal (applies to non-numeric resul ts) [facility] ID Date Data Source [id number] 08/14/2020 10:59:00 PM EDT [facility] Name Value Range Interpretation Code Description Data Mireille rce(s) Supporting Document(s) SARS-CoV-2 (COVID 19) NEGATIVE - SARS-CoV-2 (COVID19) [facility] This lab was ordered by [facility] a nd reported by [facility]. ID Date Data Source [id number] 07/09/2020 03:28:00 PM EDT [facility] Name Value Range Interpretation Code Description Data Mireille rce(s) Supporting Document(s) Hemoglobin A1C % Less than 5.7% Above high normal [facility] HBA1C: Normal: Less than 5.7% Prediabetes: 5.7% to 6.4% Diabetes: 6.5% or higher HA1C % vs Estimated Average Glucose (eAG) % eAG % eAG 6% 126 mg/dL 10% 240 mg/dL 7% 154 mg/dL 11% 269 mg/dL 8% 183 mg/dL 12% 298 mg/dL 9% 212 mg/dL Reference: [place] [employer], 2017 ID Date Data Source [id number] 07/09/2020 03:23:00 PM EDT [facility] Name Value Range Interpretation Code Description Data Mireille rce(s) Supporting Document(s) Sodium 136 mmol/L 137-145 Below low normal [facility] Potassium 3.5-5.1 Normal (applies to non-numeric resul ts) [facility] Chloride 101 mmol/L 98-112 Normal (applies to non-numeric resul ts) [facility] Carbon Dioxide CO2 22.0-33.0 Normal (applies to non-numer ic results) [facility] Anion Gap 4.0-11.0 Normal (applies to non-numeric resul ts) [facility] BUN 17 mg/dL 9-20 Normal (applies to non-numeric resul ts) [facility] Creatinine 0.80-1.50 Normal (applies to non-numeric resul ts) [facility] GFR 57 mL/min >60 Below low normal [facility] Result based on MDRD formula. Glucose Level 296 mg/dL 74-99 Above high normal [facility] The reference range is only applicable w hen fasting. Calcium-Uncorrected 8.4-10.2 Normal (applies to non-nume nelson results) [facility] Corrected Calcium 8.4-10.2 Normal (applies to non-numeri c results) [facility] ID Date Data Source [id number] 05/02/2020 02:06:00 AM EST [facility] Name Value Range Interpretation Code Description Data Mireille rce(s) Supporting Document(s) SARS coronavirus 2 RNA [Presence] in Res piratory specimen by DAILY with probe detection POSITIVE [facility] This lab was ordered by [facility] a nd reported by [facility]. ID Date Data Source [id number] 04/29/2020 10:04:00 AM EST [facility] Name Value Range Interpretation Code Description Data Mireille rce(s) Supporting Document(s) SARS COVID ANTIGEN POSITIVE [facility] This lab was ordered by [facility] a nd reported by [facility]. ID Date Data Source [id number] COVID AG (Point of Care) 04/29/2020 12:00:00 AM EST eC W1 ([facility]) Name Value Range Interpretation Code Description Data Mireille rce(s) Supporting Document(s) POSITIVE NEGATIVE LYNNE COVID ANTIGEN eCW1 ([facility]) ID Date Data Source [id number] 04/12/2020 08:23:00 PM EST [facility] Name Value Range Interpretation Code Description Data Mireille rce(s) Supporting Document(s) SARS-CoV-2 (COVID 19) NEGATIVE - SARS-CoV-2 (COVID19) [facility] This lab was ordered by [facility] a nd reported by [facility]. ID Date Data Source [id number] 03/16/2020 05:11:00 AM EST [facility] Name Value Range Interpretation Code Description Data Mireille rce(s) Supporting Document(s) Hemoglobin A1C % Less than 5.7% Above high normal [facility] HBA1C: Normal: Less than 5.7% Prediabetes: 5.7% to 6.4% Diabetes: 6.5% or higher HA1C % vs Estimated Average Glucose (eAG) % eAG % eAG 6% 126 mg/dL 10% 240 mg/dL 7% 154 mg/dL 11% 269 mg/dL 8% 183 mg/dL 12% 298 mg/dL 9% 212 mg/dL Reference: [place] [employer], 2017 ID Date Data Source [id number] 02/28/2020 11:00:00 AM EST [facility] Name Value Range Interpretation Code Description Data Mireille rce(s) Supporting Document(s) SARS coronavirus 2 RNA [facility] This lab was ordered by [facility] and reported by [facility]. ID Date Data Source [id number] 01/28/2020 04:53:00 PM EDT [facility] ([facility] Name Value Range Interpretation Code Description Data Mireille rce(s) Supporting Document(s) Glucose [Mass/volume] in Capillary blood by Glucometer 154 mg/dL 80-115 Above high normal [facility] ([facility] ID Date Data Source [id number] 01/28/2020 04:09:00 PM EDT [facility] ([facility] [...] An area of gangrenous changes is noted. Professor Of Communication And Writing sections are submitted in two after decalcification. -OA 01/29/20201303 Signed SALINA SAUNDERS MD 01/30/2020956 ID Date Data Source [id number] 01/28/2020 11:26:00 AM EDT [facility] ([facility] Name Value Range Interpretation Code Description Data Mireille rce(s) Supporting Document(s) Glucose [Mass/volume] in Capillary blood by Glucometer 91 mg/dL 80- 115 [facility] ([facility] ID Date Data Source [id number] 12/31/2019 11:17:00 AM EDT [facility] ([facility], ) Name Value Range Interpretation Code Description Data Mireille rce(s) Supporting Document(s) Glucose [Mass/volume] in Capillary blood by Glucometer 142 mg/dL 80-115 Above high normal [facility] ([facility]) ID Date Data Source [id number] 12/31[facility] Name Value Range Interpretation Code Description Data Mireille rce(s) Supporting Document(s) Glucose [Mass/volume] in Capillary blood by Glucometer 131 mg/dL 80-115 Above high normal [facility] ([facility]) ID Date Data Source [id number] 12/17/2019 10:05[facility] Name Value Range Interpretation Code Description Data Mireille rce(s) Supporting Document(s) Glucose, Fasting 158 mg/dL 70-100 Above high normal [facility] ([facility]) Blood Urea Nitrogen 15 mg/dL 7-18 Normal (applies to non-nume nelson results) [facility] ([facility]) Creatinine For GFR 1.36 mg/dL 0.70-1.30 Above high normal [facility] ([facility]) Glomerular Filtration Rate 56.9 Normal (applies to n on-numeric results) [facility]) <content>Units are mL/min/1.73 m2</content>
<content></content>
<content>Chronic Kidney Disease Staging per NKF:</content>
<content></content>
<content>Stage I & II GFR >=60 Normal to Mildly Decreased</content>
<content>Stage III GFR 30- 59 Moderately Decreased</content>
<content>Stage IV GFR 15-29 Severely Decreased</content>
<content>Stage V GFR <15 Very Little GFR Left</content>
<content>ESRD GFR <15 on [facility]</content>
<content></content> Sodium Level 139 meq/L 136-145 Normal (applies to non-numeric res ults) [facility] ([facility]) Chloride Level 105 meq/L 98-107 Normal (applies to non-numeric r esults) [facility] ([facility]) Carbon Dioxide Level 27 meq/L 21-32 Normal (applies to non-num gage results) [facility]) Potassium Serum 4.6 meq/L 3.5-5.1 Normal (applies to non-numeric results) [facility] ([facility]) Calcium Level 9.3 mg/dL 8.8-10.2 Normal (applies to non-numeric re sults) [facility]) Anion Gap 7 meq/L 8-16 Below low normal [facility] ( [facility]) ID Date Data Source [id number] 12/17/2019 10:05:00 AM EDT [facility]) Name Value Range Interpretation Code Description Data Mireille rce(s) Supporting Document(s) White Blood Count 6.8 10 4.0-10.0 Normal (applies to non-numeri c results) [facility] ([facility]) Red Blood Count 3.47 10 4.30-6.10 Below low normal [facility] ([facility]) Hemoglobin 11.2 g/dL 13.5-17.5 Below low normal [facility]) Hematocrit 32.8 % 42.0-52.0 Below low normal [facility] ( [facility]) Mean Corpuscular Volume 94.5 fl 80.0-96.0 Normal ( applies to non-numeric results) [facility]) Mean Corpuscular Hemoglobin 32.3 pg 27.0-33.0 Norm al (applies to non-numeric results) [facility]) Mean Corpuscular HGB Conc 34.1 g/dL 32.0-36.5 Normal (applies to non-numeric results) [facility]) Red Cell Distribution Width 12.1 % 11.5-14.5 Norm al (applies to non-numeric results) [facility]) Nucleated Red Blood Cell % 0.0 % 0-0 Normal (applies to n on-numeric results) [facility]) Platelet Count, Automated 214 10 150-450 Normal (applies to non-numeric results) [facility] ([facility], ) Procedure Social History Code Duration Value Status Description Data Source(s ) Smoking 01/21/2021 12:00:00 AM EDT Former Smoker completed Former Smoker eCW1 ([facility]) Smoking 01/21/2021 12:00:00 AM EDT Former Smoker completed Former Smoker eCW1 ([facility]) Smoking 12/23/2020 12:00:00 AM EDT Former Smoker completed Former Smoker eCW1 ([facility]) Smoking 12/23/2020 12:00:00 AM EDT Former Smoker completed Former Smoker eCW1 ([facility]) Smoking 12/23/2020 12:00:00 AM EDT Former Smoker completed Former Smoker eCW1 ([facility]) Smoking 12/16/2020 12:00:00 AM EDT Former Smoker completed Former Smoker eCW1 ([facility]) Smoking 12/16/2020 12:00:00 AM EDT Former Smoker completed Former Smoker eCW1 ([facility]) Smoking 08/24/2020 12:00:00 AM EDT Former Smoker completed Former Smoker eCW1 ([facility]) Smoking 08/24/2020 12:00:00 AM EDT Former Smoker completed Former Smoker eCW1 ([facility]) Smoking 08/24/2020 12:00:00 AM EDT Former Smoker completed Former Smoker eCW1 ([facility]) Smoking 08/24/2020 12:00:00 AM EDT Former Smoker completed Former Smoker eCW1 ([facility]) Smoking 08/24/2020 12:00:00 AM EDT Former Smoker completed Former Smoker eCW1 ([facility]) Smoking 07/27/2020 12:00:00 AM EDT Former Smoker completed Former Smoker eCW1 ([facility]) Smoking 07/27/2020 12:00:00 AM EDT Former Smoker completed Former Smoker eCW1 ([facility]) Smoking 07/27/2020 12:00:00 AM EDT Former Smoker completed Former Smoker eCW1 ([facility]) Smoking 07/27/2020 12:00:00 AM EDT Former Smoker completed Former Smoker eCW1 ([facility]) Smoking 07/27/2020 12:00:00 AM EDT Former Smoker completed Former Smoker eCW1 ([facility]) Smoking 07/06/2020 12:00:00 AM EDT Former Smoker completed Former Smoker eCW1 ([facility]) Smoking 07/06/2020 12:00:00 AM EDT Former Smoker completed Former Smoker eCW1 ([facility]) Smoking 07/06/2020 12:00:00 AM EDT Former Smoker completed Former Smoker eCW1 ([facility]) Smoking 05/28/2020 12:00:00 AM EST Non Smoker completed Non Smoke r [facility] ([facility], ) Smoking 05/13/2020 12:00:00 AM EST Former Smoker completed Former Smoker eCW1 ([facility]) Smoking 05/13/2020 12:00:00 AM EST Former Smoker completed Former Smoker eCW1 ([facility]) Smoking 05/13/2020 12:00:00 AM EST Former Smoker completed Former Smoker eCW1 ([facility]) Smoking 05/13/2020 12:00:00 AM EST Former Smoker completed Former Smoker eCW1 ([facility]) Smoking 05/05/2020 12:00:00 AM EST Former Smoker completed Former Smoker eCW1 ([facility]) Smoking 05/05/2020 12:00:00 AM EST Former Smoker completed Former Smoker eCW1 ([facility]) Smoking 05/05/2020 12:00:00 AM EST Former Smoker completed Former Smoker eCW1 ([facility]) Smoking 05/05/2020 12:00:00 AM EST Former Smoker completed Former Smoker eCW1 ([facility]) Smoking 05/05/2020 12:00:00 AM EST Former Smoker completed Former Smoker eCW1 ([facility]) Smoking 05/05/2020 12:00:00 AM EST Former Smoker completed Former Smoker eCW1 ([facility]) Smoking 05/05/2020 12:00:00 AM EST Former Smoker completed Former Smoker eCW1 ([facility]) Smoking 04/29/2020 12:00:00 AM EST Former Smoker completed Former Smoker eCW1 ([facility]) Smoking 04/06/2020 12:00:00 AM EST Former Smoker completed Former Smoker eCW1 ([facility]) Smoking 04/06/2020 12:00:00 AM EST Former Smoker completed Former Smoker eCW1 ([facility]) Smoking 04/06/2020 12:00:00 AM EST Former Smoker completed Former Smoker eCW1 ([facility]) Smoking 04/06/2020 12:00:00 AM EST Former Smoker completed Former Smoker eCW1 ([facility]) Smoking 04/06/2020 12:00:00 AM EST Former Smoker completed Former Smoker eCW1 ([facility]) Smoking 04/06/2020 12:00:00 AM EST Former Smoker completed Former Smoker eCW1 ([facility]) Smoking 04/06/2020 12:00:00 AM EST Former Smoker completed Former Smoker eCW1 ([facility]) Smoking 02/25/2020 12:00:00 AM EST Former Smoker completed Former Smoker eCW1 ([facility]) Smoking 02/25/2020 12:00:00 AM EST Former Smoker completed Former Smoker eCW1 ([facility]) Smoking 02/25/2020 12:00:00 AM EST Former Smoker completed Former Smoker eCW1 ([facility]) Smoking 02/25/2020 12:00:00 AM EST Former Smoker completed Former Smoker eCW1 ([facility]) Smoking 02/25/2020 12:00:00 AM EST Former Smoker completed Former Smoker eCW1 ([facility]) Smoking 02/25/2020 12:00:00 AM EST Former Smoker completed Former Smoker eCW1 ([facility]) Smoking 02/25/2020 12:00:00 AM EST Former Smoker completed Former Smoker eCW1 ([facility]) Smoking 02/24/2020 12:00:00 AM EST Former Smoker completed Former Smoker eCW1 ([facility]) Smoking 02/19/2020 12:00:00 AM EST Former Smoker completed Former Smoker eCW1 ([facility]) Smoking 02/19/2020 12:00:00 AM EST Former Smoker completed Former Smoker eCW1 ([facility]) Smoking 02/19/2020 12:00:00 AM EST Former Smoker completed Former Smoker eCW1 ([facility]) Smoking 02/09/2020 12:00:00 AM EST Former Smoker completed Former Smoker eCW1 ([facility]) Smoking 02/09/2020 12:00:00 AM EST Former Smoker completed Former Smoker eCW1 ([facility]) Smoking 01/19/2020 12:00:00 AM EDT Former Smoker completed Former Smoker eCW1 ([facility]) Smoking 01/19/2020 12:00:00 AM EDT Former Smoker completed Former Smoker eCW1 ([facility]) Smoking 01/19/2020 12:00:00 AM EDT Former Smoker completed Former Smoker eCW1 ([facility]) Vital Signs ID Date Data Source UNK Name Value Range Interpretation Code Description Data Source(s) Systolic blood pressure 109 mm[Hg] 109 mm[Hg] M [facility] ([facility]) Diastolic blood pressure 65 mm[Hg] 65 mm[Hg] [facility] ([facility]) Body height 69 [in_i] 69 [in_i] [facility] ([facility]) 5'9" Body weight 164.00 [lb_av] 164.00 [facility]_av] [facility] Body mass index (BMI) [Ratio] 24.2 kg/m2 24.2 k g/m2 [facility] ([facility]) [place] body weight 160 [lb_av] 160 [lb_av] [facility] Body weight 74.390 kg 74.390 kg [facility] ([facility]) Body surface area Derived from formula 1.90 m2 1.90 m2 [facility] ([facility]) Body temperature 98.8 [degF] 98.8 [degF] [facility] ([facility]) Heart rate 82 /min 82 /min [facility] ([facility]) Body weight 154.4 [lb_av] 154.4 [lb_av] eCW1 ([facility]) Body height 69 [in_i] 69 [in_i] eCW1 ([facility]) Body mass index (BMI) [Ratio] 22.80 kg/m2 22.80 kg/m2 eCW1 ([facility]) Heart rate 78 /min 78 /min eCW1 ([facility]) Respiratory rate 18 /min 18 /min eCW1 ([facility]) Body temperature 97.6 [degF] 97.6 [degF] eCW1 ( [facility]) Systolic blood pressure 146 mm[Hg] 146 mm[Hg] e CW1 ([facility]) Diastolic blood pressure 66 mm[Hg] 66 mm[Hg] eCW1 ([facility]) Systolic blood pressure 138 mm[Hg] 138 mm[Hg] M [facility] ([facility]) Diastolic blood pressure 80 mm[Hg] 80 mm[Hg] [facility] ([facility]) Body temperature 97.9 [degF] 97.9 [degF] [facility] ([facility]) Body weight 152.00 [lb_av] 152.00 [lb_av] [facility] ([facility]) Body surface area Derived from formula 1.84 m2 1.84 m2 [facility] ([facility]) Body height 69 [in_i] 69 [in_i] [facility] ([facility]) 5'9" Body mass index (BMI) [Ratio] 22.4 kg/m2 22.4 k g/m2 [facility] ([facility]) [place] body weight 160 [lb_av] 160 [lb_av] [facility] ([facility]) Body weight 68.947 kg 68.947 kg [facility] ([facility]) Body weight 162.6 [lb_av] 162.6 [lb_av] eCW1 ([facility]) Body height 69 [in_i] 69 [in_i] eCW1 ([facility]) Body mass index (BMI) [Ratio] 24.01 kg/m2 24.01 kg/m2 eCW1 ([facility]) Heart rate 70 /min 70 /min eCW1 ([facility]) Respiratory rate 18 /min 18 /min eCW1 ([facility]) Body temperature 98.1 [degF] 98.1 [degF] eCW1 ( [facility]) Systolic blood pressure 112 mm[Hg] 112 mm[Hg] e CW1 ([facility]) Diastolic blood pressure 55 mm[Hg] 55 mm[Hg] eCW1 ([facility]) Heart rate 65 /min 65 /min [facility] ([facility]) Systolic blood pressure 116 mm[Hg] 116 mm[Hg] M [facility] ([facility]) Body mass index (BMI) [Ratio] 24.4 kg/m2 24.4 k g/m2 [facility] ([facility]) Diastolic blood pressure 71 mm[Hg] 71 mm[Hg] [facility] ([facility]) Body height 69 [in_i] 69 [in_i] [facility] ([facility]) 5'9" Body weight 165.25 [lb_av] 165.25 [lb_av] MEDEN T ([facility]) [place] body weight 160 [lb_av] 160 [facility]_av] [facility] Body weight 74.957 kg 74.957 kg [facility] ([facility]) Body surface area Derived from formula 1.91 m2 1.91 m2 [facility] ([facility]) Heart rate 73 /min 73 /min eCW1 ([facility]) Respiratory rate 18 /min 18 /min eCW1 ([facility]) Body temperature 97.4 [degF] 97.4 [degF] eCW1 ( [facility]) Systolic blood pressure 106 mm[Hg] 106 mm[Hg] e CW1 ([facility]) Diastolic blood pressure 49 mm[Hg] 49 mm[Hg] eCW1 ([facility]) Body weight 165.2 [lb_av] 165.2 [lb_av] eCW1 ([facility]) Body height 69 [in_i] 69 [in_i] eCW1 ([facility]) Body mass index (BMI) [Ratio] 24.39 kg/m2 24.39 kg/m2 eCW1 ([facility]) Body weight 164.00 [lb_av] 164.00 [lb_av] MEDEN T ([facility]) Body mass index (BMI) [Ratio] 24.2 kg/m2 24.2 k g/m2 MEDENT ([facility]) Systolic blood pressure 153 mm[Hg] 153 mm[Hg] [facility] Diastolic blood pressure 76 mm[Hg] 76 mm[Hg] [facility] ([facility]) Heart rate 67 /min 67 /min [facility] ([facility]) Body height 69 [in_i] 69 [in_i] [facility] ([facility]) 5'9" [place] body weight 160 [lb_av] 160 [lb_av] MEDEN T ([facility]) Body weight 74.390 kg 74.390 kg [facility] ([facility]) Body surface area Derived from formula 1.90 m2 1.90 m2 [facility] ([facility]) Body weight 74.390 kg 74.390 kg [facility] ([facility]) Body height 69 [in_i] 69 [in_i] [facility] ([facility]) 5'9" Systolic blood pressure 130 mm[Hg] 130 mm[Hg] M EDENT ([facility]) Diastolic blood pressure 68 mm[Hg] 68 mm[Hg] MEDENT ([facility]) Body weight 164.00 [lb_av] 164.00 [lb_av] MEDEN T ([facility]) stated Body mass index (BMI) [Ratio] 24.2 kg/m2 24.2 k g/m2 [facility] ([facility]) [place] body weight 160 [lb_av] 160 [lb_av] MEDEN T ([facility]) Body surface area Derived from formula 1.90 m2 1.90 m2 MEDENT ([facility]) Body weight 158 [lb_av] 158 [lb_av] eCW1 ([facility]) Body height 69 [in_i] 69 [in_i] eCW1 ([facility]) Body mass index (BMI) [Ratio] 23.33 kg/m2 23.33 kg/m2 eCW1 ([facility]) Heart rate 60 /min 60 /min eCW1 ([facility]) Respiratory rate 18 /min 18 /min eCW1 ([facility]) Body temperature 97.9 [degF] 97.9 [degF] eCW1 ( [facility]) Systolic blood pressure 182 mm[Hg] 182 mm[Hg] e CW1 ([facility]) Diastolic blood pressure 73 mm[Hg] 73 mm[Hg] eCW1 ([facility]) Body height 69 [in_i] 69 [in_i] [facility], [facility] 5'9" Body weight 164.00 [lb_av] 164.00 [lb_av] MEDEN T ([facility]) Body surface area Derived from formula 1.90 m2 1.90 m2 [facility] ([facility]) Systolic blood pressure 159 mm[Hg] 159 mm[Hg] M EDENT ([facility], ) Diastolic blood pressure 77 mm[Hg] 77 mm[Hg] MEDENT ([facility]) Heart rate 66 /min 66 /min MEDENT ([facility], ) Body mass index (BMI) [Ratio] 24.2 kg/m2 24.2 k g/m2 [facility] [place] body weight 160 [lb_av] 160 [lb_av] MEDEN T ([facility]) Body weight 74.390 kg 74.390 kg MEDENT ([facility], ) Body weight 164.00 [lb_av] 164.00 [lb_av] MEDEN T ([facility]) Body mass index (BMI) [Ratio] 24.2 kg/m2 24.2 k g/m2 MEDENT ([facility]) [place] body weight 160 [lb_av] 160 [lb_av] MEDEN T ([facility]) Body weight 74.390 kg 74.390 kg MEDENT ([facility]) Body height 69 [in_i] 69 [in_i] MEDENT ([facility]) 5'9" Body surface area Derived from formula 1.90 m2 1.90 m2 [facility] Body weight 158.8 [lb_av] 158.8 [lb_av] eCW1 ([facility]) Body height 69 [in_i] 69 [in_i] eCW1 ([facility]) Body mass index (BMI) [Ratio] 23.45 kg/m2 23.45 kg/m2 eCW1 ([facility]) Heart rate 71 /min 71 /min eCW1 ([facility]) Respiratory rate 18 /min 18 /min eCW1 ([facility]) Body temperature 98.0 [degF] 98.0 [degF] eCW1 ( [facility]) Systolic blood pressure 157 mm[Hg] 157 mm[Hg] e CW1 ([facility]) Diastolic blood pressure 72 mm[Hg] 72 mm[Hg] eCW1 ([facility]) Diastolic blood pressure 63 mm[Hg] 63 mm[Hg] MEDENT ([facility]) Heart rate 78 /min 78 /min MEDENT ([facility]) Body height 69 [in_i] 69 [in_i] MEDENT ([facility]) 5'9" Body weight 151.00 [lb_av] 151.00 [lb_av] MEDEN T ([facility]) Systolic blood pressure 115 mm[Hg] 115 mm[Hg] M EDENT ([facility]) Body mass index (BMI) [Ratio] 22.3 kg/m2 22.3 k g/m2 MEDENT ([facility]) [place] body weight 160 [lb_av] 160 [lb_av] MEDEN T ([facility]) Body weight 68.494 kg 68.494 kg [facility] ([facility]) Body surface area Derived from formula 1.83 m2 1.83 m2 [facility] ([facility]) Body weight 151.2 [lb_av] 151.2 [lb_av] eCW1 ([facility]) Body height 69 [in_i] 69 [in_i] eCW1 ([facility]) Body mass index (BMI) [Ratio] 22.33 kg/m2 22.33 kg/m2 eCW1 ([facility]) Heart rate 81 /min 81 /min eCW1 ([facility]) Respiratory rate 17 /min 17 /min eCW1 ([facility]) Body temperature 98.1 [degF] 98.1 [degF] eCW1 ( [facility]) Systolic blood pressure 114 mm[Hg] 114 mm[Hg] e CW1 ([facility]) Diastolic blood pressure 55 mm[Hg] 55 mm[Hg] eCW1 ([facility]) Systolic blood pressure 136 mm[Hg] 136 mm[Hg] M EDENT ([facility]) Diastolic blood pressure 78 mm[Hg] 78 mm[Hg] MEDENT ([facility]) Heart rate 69 /min 69 /min [facility] Body height 69 [in_i] 69 [in_i] [facility] ([facility]) 5'9" Body weight 153.50 [lb_av] 153.50 [lb_av] MEDEN T ([facility]) Body mass index (BMI) [Ratio] 22.7 kg/m2 22.7 k g/m2 [facility] ([facility]) [place] body weight 160 [lb_av] 160 [lb_av] MEDEN T ([facility]) Body weight 69.628 kg 69.628 kg [facility] ([facility]) Body surface area Derived from formula 1.85 m2 1.85 m2 [facility] ([facility]) Diastolic blood pressure 70 mm[Hg] 70 mm[Hg] [facility] Body weight 155.00 [lb_av] 155.00 [lb_av] MEDEN T ([facility]) Stated Body mass index (BMI) [Ratio] 22.9 kg/m2 22.9 k g/m2 [facility] ([facility]) [place] body weight 160 [lb_av] 160 [lb_av] MEDEN T ([facility]) Body weight 70.308 kg 70.308 kg [facility] ([facility]) Body surface area Derived from formula 1.85 m2 1.85 m2 [facility] ([facility]) Body height 69 [in_i] 69 [in_i] [facility] 5'9" Systolic blood pressure 150 mm[Hg] 150 mm[Hg] [facility] Body weight 155 [lb_av] 155 [lb_av] eCW1 ([facility]) Body height 69 [in_i] 69 [in_i] eCW1 ([facility]) Body mass index (BMI) [Ratio] 22.89 kg/m2 22.89 kg/m2 W1 ([facility]) Heart rate 78 /min 78 /min eCW1 ([facility]) Respiratory rate 18 /min 18 /min eCW1 ([facility]) Body temperature 98.4 [degF] 98.4 [degF] eCW1 ( [facility]) Systolic blood pressure 109 mm[Hg] 109 mm[Hg] e CW1 ([facility]) Diastolic blood pressure 53 mm[Hg] 53 mm[Hg] eCW1 ([facility]) Systolic blood pressure 124 mm[Hg] 124 mm[Hg] [facility]) Diastolic blood pressure 72 mm[Hg] 72 mm[Hg] [facility] ([facility]) Body height 69 [in_i] 69 [in_i] [facility] 5'9" Body weight 145.00 [lb_av] 145.00 [lb_av] MEDEN T ([facility]) Body mass index (BMI) [Ratio] 21.4 kg/m2 21.4 k g/m2 [facility] ([facility]) [place] body weight 160 [lb_av] 160 [lb_av] MEDEN T ([facility]) Body weight 65.772 kg 65.772 kg [facility] ([facility]) Body surface area Derived from formula 1.80 m2 1.80 m2 [facility] ([facility]) Body mass index (BMI) [Ratio] 22.89 kg/m2 22.89 kg/m2 eCW1 ([facility]) Diastolic blood pressure 42 mm[Hg] 42 mm[Hg] eCW1 ([facility]) Body weight 155 [lb_av] 155 [lb_av] eCW1 ([facility]) Body height 69 [in_i] 69 [in_i] eCW1 ([facility]) Heart rate 89 /min 89 /min eCW1 ([facility]) Respiratory rate 20 /min 20 /min eCW1 ([facility]) Body temperature 98.7 [degF] 98.7 [degF] eCW1 ( [facility]) Systolic blood pressure 91 mm[Hg] 91 mm[Hg] e CW1 ([facility]) Systolic blood pressure 123 mm[Hg] 123 mm[Hg] M EDENT ([facility]) Body height 69 [in_i] 69 [in_i] [facility] ([facility]) 5'9" Body weight 143.00 [lb_av] 143.00 [lb_av] [facility] stated Body mass index (BMI) [Ratio] 21.1 kg/m2 21.1 k g/m2 [facility] ([facility]) [place] body weight 160 [lb_av] 160 [lb_av] MEDEN T ([facility]) Body weight 64.865 kg 64.865 kg MEDENT ([facility]) Body surface area Derived from formula 1.79 m2 1.79 m2 MEDENT ([facility]) Diastolic blood pressure 73 mm[Hg] 73 mm[Hg] MED[facility] ([facility]) Body weight 155 [lb_av] 155 [lb_av] eCW1 ([facility]) Body height 69 [in_i] 69 [in_i] eCW1 ([facility]) Body mass index (BMI) [Ratio] 22.89 kg/m2 22.89 kg/m2 eCW1 ([facility]) Heart rate 74 /min 74 /min eCW1 ([facility]) Respiratory rate 18 /min 18 /min eCW1 ([facility]) Body temperature 98.3 [degF] 98.3 [degF] eCW1 ( [facility]) Systolic blood pressure 136 mm[Hg] 136 mm[Hg] e CW1 ([facility]) Diastolic blood pressure 65 mm[Hg] 65 mm[Hg] eCW1 ([facility]) Systolic blood pressure 110 mm[Hg] 110 mm[Hg] M EDENT ([facility]) Diastolic blood pressure 63 mm[Hg] 63 mm[Hg] MEDENT ([facility]) Body height 69 [in_i] 69 [in_i] [facility] ([facility]) 5'9" Body weight 143.00 [lb_av] 143.00 [lb_av] MEDEN T ([facility]) Body mass index (BMI) [Ratio] 21.1 kg/m2 21.1 k g/m2 [facility]) [place] body weight 160 [lb_av] 160 [lb_av] MEDEN T ([facility]) Body weight 64.865 kg 64.865 kg [facility] ([facility]) Body surface area Derived from formula 1.79 m2 1.79 m2 [facility]) Heart rate 85 /min 85 /min [facility] ([facility]) Body height 69 [in_i] 69 [in_i] MEDENT ([facility], ) 5'9" [place] body weight 160 [lb_av] 160 [lb_av] MEDEN T ([facility], ) Systolic blood pressure 126 mm[Hg] 126 mm[Hg] M EDENT ([facility], ) Diastolic blood pressure 61 mm[Hg] 61 mm[Hg] [facility]ENT ([facility], ) Body height 69 [in_i] 69 [in_i] eCW1 ([facility]) Body mass index (BMI) [Ratio] 24.22 kg/m2 24.22 kg/m2 eCW1 ([facility]) Heart rate 90 /min 90 /min eCW1 ([facility]) Body temperature 97.7 [degF] 97.7 [degF] eCW1 ( [facility]) Systolic blood pressure 188 mm[Hg] 188 mm[Hg] e CW1 ([facility]) Respiratory rate 20 /min 20 /min eCW1 ([facility]) Body weight 164 [lb_av] 164 [lb_av] eCW1 ([facility]) Diastolic blood pressure 78 mm[Hg] 78 mm[Hg] eCW1 ([facility]) Body weight 164 [lb_av] 164 [lb_av] eCW1 ([facility]) Body height 69 [in_i] 69 [in_i] eCW1 ([facility]) Body mass index (BMI) [Ratio] 24.22 kg/m2 24.22 kg/m2 eCW1 ([facility]) Heart rate 82 /min 82 /min eCW1 ([facility]) Respiratory rate 20 /min 20 /min eCW1 ([facility]) Body temperature 98.5 [degF] 98.5 [degF] eCW1 ( [facility]) Systolic blood pressure 107 mm[Hg] 107 mm[Hg] e CW1 ([facility]) Diastolic blood pressure 58 mm[Hg] 58 mm[Hg] eCW1 ([facility]) Body weight 168 [lb_av] 168 [lb_av] eCW1 ([facility]) Body weight kg eCW1 ([facility]) Body height 69 [in_i] 69 [in_i] eCW1 ([facility]) Body mass index (BMI) [Ratio] 24.81 kg/m2 24.81 kg/m2 eCW1 ([facility]) Heart rate 88 /min 88 /min eCW1 ([facility]) Respiratory rate 22 /min 22 /min eCW1 ([facility]) Body temperature 98.2 [degF] 98.2 [degF] eCW1 ( [facility]) Systolic blood pressure 188 mm[Hg] 188 mm[Hg] e CW1 ([facility]) Diastolic blood pressure mm[Hg] eCW1 ([facility]) Body height 69 [in_i] 69 [in_i] MEDENT [...] pressure 128 mm[Hg] 128 mm[Hg] M EDENT ([facility], ) Body height 69 [in_i] 69 [in_i] MEDENT ([facility], ) 5'9" Body weight 168.25 [lb_av] 168.25 [lb_av] MEDEN T ([facility]) [place] body weight 160 [lb_av] 160 [lb_av] MEDEN T ([facility]) Body weight 76.318 kg 76.318 kg [facility] ([facility]) Diastolic blood pressure 70 mm[Hg] 70 mm[Hg] MEDENT ([facility]) Body surface area Derived from formula 1.92 m2 1.92 m2 [facility] ([facility]) Body mass index (BMI) [Ratio] 24.8 kg/m2 24.8 k g/m2 [facility] ([facility]) Respiratory rate 18 /min 18 /min eCW1 ([facility]) Body weight kg eCW1 ([facility]) Body height 69 [in_i] 69 [in_i] eCW1 ([facility]) Body mass index (BMI) [Ratio] 24.81 kg/m2 24.81 kg/m2 W1 ([facility]) Heart rate 77 /min 77 /min eCW1 ([facility]) Body weight 168 [lb_av] 168 [lb_av] eCW1 ([facility]) Systolic blood pressure 107 mm[Hg] 107 mm[Hg] e CW1 ([facility]) Diastolic blood pressure 69 mm[Hg] 69 mm[Hg] eCW1 ([facility]) Body temperature 94.6 [degF] 94.6 [degF] eCW1 ( [facility]) Body weight 168 [lb_av] 168 [lb_av] eCW1 ([facility]) Body weight kg eCW1 ([facility]) Body height 69 [in_i] 69 [in_i] eCW1 ([facility]) Body mass index (BMI) [Ratio] 24.81 kg/m2 24.81 kg/m2 eCW1 ([facility]) Systolic blood pressure 124 mm[Hg] 124 mm[Hg] M EDENT ([facility]) Diastolic blood pressure 70 mm[Hg] 70 mm[Hg] MEDENT ([facility]) Body height 69 [in_i] 69 [in_i] [facility] ([facility]) 5'9" Body weight 174.00 [lb_av] 174.00 [lb_av] [facility] Body mass index (BMI) [Ratio] 25.7 kg/m2 25.7 k g/m2 [facility] ([facility]) [place] body weight 160 [lb_av] 160 [lb_av] [facility] Body weight 78.926 kg 78.926 kg [facility] ([facility]) Patient Treatment Plan of Care Planned Activity Planned Date Details Description Data Source (s) Bisacodyl 10 MG Rectal Suppository 12/14/2020 12:00:00 AM EDT eCW1 ([facility]) Docusate Sodium 100 MG Oral Capsule [Colace] 12/14/2020 12:00:00 AM EDT eCW1 ([facility]) Ketoconazole 20 MG/ML Topical Cream 09/16/2020 12:00:00 AM EDT eCW1 ([facility]) Ketoconazole 20 MG/ML Topical Cream 09/16/2020 12:00:00 AM EDT eCW1 ([facility]) Ketoconazole 20 MG/ML Topical Cream 09/16/2020 12:00:00 AM EDT eCW1 ([facility]) Ketoconazole 20 MG/ML Topical Cream 09/16/2020 12:00:00 AM EDT eCW1 ([facility]) Prednisone 1 MG Oral Tablet 07/27/2020 12:00:00 AM EDT eCW1 ([facility]) Prednisone 1 MG Oral Tablet 07/27/2020 12:00:00 AM EDT eCW1 ([facility]) Prednisone 1 MG Oral Tablet 07/27/2020 12:00:00 AM EDT eCW1 ([facility]) Prednisone 1 MG Oral Tablet 07/27/2020 12:00:00 AM EDT eCW1 ([facility]) Prednisone 1 MG Oral Tablet 07/27/2020 12:00:00 AM EDT eCW1 ([facility]) aripiprazole 5 MG Oral Tablet 07/06/2020 12:00:00 AM EDT eCW1 ([facility]) aripiprazole 5 MG Oral Tablet 07/06/2020 12:00:00 AM EDT eCW1 ([facility]) aripiprazole 5 MG Oral Tablet 07/06/2020 12:00:00 AM EDT eCW1 ([facility]) aripiprazole 5 MG Oral Tablet 07/06/2020 12:00:00 AM EDT eCW1 ([facility]) aripiprazole 5 MG Oral Tablet 07/06/2020 12:00:00 AM EDT eCW1 ([facility]) aripiprazole 5 MG Oral Tablet 07/06/2020 12:00:00 AM EDT eCW1 ([facility]) aripiprazole 5 MG Oral Tablet 07/06/2020 12:00:00 AM EDT eCW1 ([facility]) aripiprazole 5 MG Oral Tablet 07/06/2020 12:00:00 AM EDT eCW1 ([facility]) aripiprazole 5 MG Oral Tablet 07/06/2020 12:00:00 AM EDT eCW1 ([facility]) aripiprazole 5 MG Oral Tablet 07/06/2020 12:00:00 AM EDT eCW1 ([facility]) aripiprazole 5 MG Oral Tablet 07/06/2020 12:00:00 AM EDT eCW1 ([facility]) aripiprazole 5 MG Oral Tablet 07/06/2020 12:00:00 AM EDT eCW1 ([facility]) aripiprazole 5 MG Oral Tablet 07/06/2020 12:00:00 AM EDT eCW1 ([facility]) Misc. Devices - 03/11/2020 12:00:00 AM EST eCW1 ([facility]) Misc. Devices - 03/11/2020 12:00:00 AM EST eCW1 ([facility]) Misc. Devices - 03/11/2020 12:00:00 AM EST eCW1 ([facility]) Misc. Devices - 03/11/2020 12:00:00 AM EST eCW1 ([facility]) Misc. Devices - 03/11/2020 12:00:00 AM EST eCW1 ([facility]) Wheelchair - 02/24/2020 12:00:00 AM EST e CW1 ([facility]) Wheelchair - 02/24/2020 12:00:00 AM EST e CW1 ([facility]) Wheelchair - 02/24/2020 12:00:00 AM EST e CW1 ([facility]) Wheelchair - 02/24/2020 12:00:00 AM EST e CW1 ([facility]) Wheelchair - 02/24/2020 12:00:00 AM EST e CW1 ([facility]) Wheelchair - 02/24/2020 12:00:00 AM EST e CW1 ([facility]) Wheelchair - 02/24/2020 12:00:00 AM EST e CW1 ([facility]) Wheelchair - 02/24/2020 12:00:00 AM EST e CW1 ([facility])
[2021-02-12 02:46] VITALS: BP 130/76
[2021-02-12] MEDS: D5W/0.45% SODIUM CHLORIDE 1,000 ML IV SCH (05:37)
[2021-02-12 06:00] VITALS: BP 125/76
[2021-02-12] MEDS ORDERED: SUCR1ORA2 PO (08:52)
[2021-02-12] MEDS ORDERED: ACET1TAB55 PO (08:52)
[2021-02-12] MEDS ORDERED: PLAV1TAB2 PO (08:52)
[2021-02-12] MEDS ORDERED: PANT-23 PO (08:52)
[2021-02-12] MEDS ORDERED: ENOXAPARIN 40MG/0.4ML SYRINGE (J1650 PER 10MG) SC SCH (09:00)
[2021-02-12] MEDS ORDERED: PANTOPRAZOLE 40MG VIAL (C9113 PER 1) IV SCH (09:00)
[2021-02-12 09:33] LABS: BASO % 0.2 % (0.0-1.0); EOS # 0.2 10^3/uL (0.0-0.5); EOS % 4.2 % (0.0-3.0); HEMATOCRIT 22.4 % (42.0-52.0); LYMPH # 1.1 10^3/uL (1.5-5.0); MEAN CORPUSCULAR HEMOGLOBIN 30.4 pg (27.0-33.0); MEAN CORPUSCULAR HGB CONC 33.5 g/dl (32.0-36.5); MEAN CORPUSCULAR VOLUME 90.7 fl (80.0-96.0); MONO # 0.6 10^3/uL (0.0-0.8); NEUTROPHILS # 2.4 10^3/uL (1.5-8.5); NEUTROPHILS % 57.4 % (36.0-66.0); PLATELET COUNT, AUTOMATED 152 10^3/uL (150-450); RED BLOOD COUNT 2.47 10^6/uL (4.30-6.10); WHITE BLOOD COUNT 4.2 10^3/uL (4.0-10.0)
[2021-02-12 09:35] LABS: HEMOGLOBIN 7.5 g/dl (13.5-17.5)
[2021-02-12] MEDS ORDERED: LEVEMIR (INSULIN DETEMIR) 1 UNITS/0.01ML SC ONE ×2 (09:45→10:00)
[2021-02-12] MEDS ORDERED: INSUHUMDS SC ×2 (09:47)
[2021-02-12 09:50] LABS: BLOOD UREA NITROGEN 14 MG/DL (7-18); CALCIUM LEVEL 8.3 MG/DL (8.8-10.2); CARBON DIOXIDE LEVEL 24 MEQ/L (21-32); CHLORIDE LEVEL 99 MEQ/L (98-107); CREATININE FOR GFR 1.25 MG/DL (0.70-1.30); GLOMERULAR FILTRATION RATE > 60.0 (>49); GLUCOSE, FASTING 430 MG/DL (70-100); POTASSIUM SERUM 4.7 MEQ/L (3.5-5.1); SODIUM LEVEL 133 MEQ/L (136-145)
[2021-02-12] MEDS ORDERED: HumuLIN R (REGULAR) INSULIN (NovoLIN R) **100U/ML** PER UNIT IV ONE (10:00)
[2021-02-12] MEDS ORDERED: HumaLOG INSULIN (NovoLOG) PER UNIT SC SCH ×2 (12:00→21:00)
[2021-02-12 12:50] LABS: BASO % 0.2 % (0.0-1.0); EOS # 0.2 10^3/uL (0.0-0.5); EOS % 4.7 % (0.0-3.0); HEMATOCRIT 22.4 % (42.0-52.0); HEMOGLOBIN 7.5 g/dl (13.5-17.5); LYMPH # 1.2 10^3/uL (1.5-5.0); LYMPH % 27.5 % (24.0-44.0); MEAN CORPUSCULAR HEMOGLOBIN 30.1 pg (27.0-33.0); MEAN CORPUSCULAR HGB CONC 33.5 g/dl (32.0-36.5); MONO # 0.7 10^3/uL (0.0-0.8); MONO % 14.8 % (2.0-8.0); NEUTROPHILS # 2.4 10^3/uL (1.5-8.5); NEUTROPHILS % 52.6 % (36.0-66.0); PLATELET COUNT, AUTOMATED 149 10^3/uL (150-450); RED BLOOD COUNT 2.49 10^6/uL (4.30-6.10); WHITE BLOOD COUNT 4.5 10^3/uL (4.0-10.0)
[2021-02-12 13:23] LABS: BLOOD UREA NITROGEN 15 MG/DL (7-18); CALCIUM LEVEL 8.5 MG/DL (8.8-10.2); CARBON DIOXIDE LEVEL 27 MEQ/L (21-32); CHLORIDE LEVEL 102 MEQ/L (98-107); CREATININE FOR GFR 1.26 MG/DL (0.70-1.30); GLOMERULAR FILTRATION RATE > 60.0 (>49); GLUCOSE, FASTING 254 MG/DL (70-100); POTASSIUM SERUM 4.1 MEQ/L (3.5-5.1); SODIUM LEVEL 136 MEQ/L (136-145)
[2021-02-12 13:59] LABS: IRON (FE) 71 UG/DL (65-175); TOTAL IRON BINDING CAPACITY 187 UG/DL (250-450)
--- NOTE | 2021-02-12 16:16 | DS.PDOC ---
Discharge Summary General Date of Admission Feb 11, 2021 at 18:22 Date of Discharge 02/12/21 Discharge Summary PROCEDURES PERFORMED DURING STAY: [None]. 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 HISTORY OF PRESENT ILLNESS: Hermann is a 60-year-old male who presents via EMS following hypoglycemic episode at home. Per EMS, patient was found to have BS 27 and was given glucose and glucagon with adequate response. Upon arrival to ED, patient was found to have BS 74 and was alert and oriented. Of note, patient was seen and evaluated in the ED yesterday (02/10) due to hypoglycemia. Patient denies any symptoms and has no acute complaints. Reports decreased appetite over the past week, and he attributes this to his recent hypoglycemic episodes. Denies LOC, changes in vision, tremors, sweats, nausea/vomiting, abdominal pain. He tells me his sister noticed his blood sugar was low and called EMS. Denies recent illness, dehydration. Denies chest pain, SOB, cough, numbness/tingling, changes in BM, changes in urination. HOSPITAL COURSE: During hospital stay glucose level was stabilized. Unfortunately patient decided to leave the hospital AGAINST MEDICAL ADVICE DISCHARGE MEDICATIONS: Please see below. ALLERGIES: Please see below. PHYSICAL EXAMINATION ON DISCHARGE: VITAL SIGNS: Please see below. GENERAL APPEARANCE: Alert, awake, laying in stretcher, NAD, blanket wrapped ar ound head HEENT: EOMI with poor tracking, nares patent, dry mucous membranes, no dentition CARDIOVASCULAR: RRR, normal heart sounds, 4/6 systolic murmur. LUNGS: CTA bilaterally, no WRR, no accessory muscles used. ABDOMEN: Soft, nondistended, minimal dull tenderness with deep palpation right upper quadrant that radiates across to left upper quadrant. SKIN: Well-healing bruises on left upper extremity, 2cm ulcer with wound VAC on right stump clean/intact/no surrounding signs of infection, no new a brasions/wounds/ulcers MUSCULOSKELETAL: Bilateral BKA, normal ROM, strength 5/5. EXTREMITIES: No significant edema/cyanosis, bilateral BKA. NEUROLOGICAL: CN III-XII intact, sensation intact. PSYCHIATRIC: AOx3, no depressed/anxious mood. LABORATORY DATA: Please see below. IMAGING: PROGNOSIS: ACTIVITY: [As tolerated]. DIET: DISCHARGE PLAN: DISPOSITION: 07 Against Medical Advice. DISCHARGE INSTRUCTIONS: 1. . ITEMS TO FOLLOWUP ON ON OUTPATIENT: 1. . DISCHARGE CONDITION: [Stable]. TIME SPENT ON DISCHARGE: minutes. Vital Signs/I&Os Vital Signs Date Time Temp Pulse Resp B/P (MAP) Pulse Ox O2 Delivery O2 Flow Rate FiO2 02/12/21 06:00 99.0 76 18 125/76 (92) 95 Room Air I&O- Last 24 Hours up to 6 AM 02/12/21 06:00 Intake Total 0 ml Output Total 0 ml Balance 0 ml Laboratory Data Labs 24H Laboratory Tests 2 02/11/21 19:02: Nucleated Red Blood Cells % (auto) 0.0, Erythrocyte Sedimentation Rate 35H, Anion Gap 8, Glomerular Filtration Rate 59.7, Calcium Level 8.8, Total Bilirubin 0.5, Aspartate Amino Transf (AST/SGOT) 20, Alanine Aminotransferase (ALT/SGPT) 35, Alkaline Phosphatase 106, C-Reactive Protein, Quantitative 3.75H, Total Protein 6.2L, Albumin 3.2, Albumin/Globulin Ratio 1.1 02/11/21 20:38: Bedside Glucose (Misc Panel) 74L 02/11/21 22:09: Bedside Glucose (Misc Panel) 105 02/11/21 22:15: Coronavirus (COVID-19)(PCR) NEGATIVE, Influenza Type A (RT-PCR) NEGATIVE, Influenza Type B (RT-PCR) NEGATIVE, Respiratory Syncytial Virus (PCR) NEGATIVE 02/12/21 00:35: Bedside Glucose (Misc Panel) 138H 02/12/21 01:32: Bedside Glucose (Misc Panel) 152H 02/12/21 02:56: Lactic Acid Level 1.1 02/12/21 07:46: Bedside Glucose (Misc Panel) 269H 02/12/21 08:57: Immature Granulocyte % (Auto) 0.2, Neutrophils (%) (Auto) 57.4, Lymphocytes (%) (Auto) 25.0, Monocytes (%) (Auto) 13.0H, Eosinophils (%) (Auto) 4.2H, Basophils (%) (Auto) 0.2, Neutrophils # (Auto) 2.4, Lymphocytes # (Auto) 1.1L, Monocytes # (Auto) 0.6, Eosinophils # (Auto) 0.2, Basophils # (Auto) 0.0, Nucleated Red Blood Cells % (auto) 0.0, Anion Gap 10, Glomerular Filtration Rate > 60.0, Calcium Level 8.3L 02/12/21 11:28: Bedside Glucose (Misc Panel) 307H 02/12/21 12:45: Immature Granulocyte % (Auto) 0.2, Neutrophils (%) (Auto) 52.6, Lymphocytes (%) (Auto) 27.5, Monocytes (%) (Auto) 14.8H, Eosinophils (%) (Auto) 4.7H, Basophils (%) (Auto) 0.2, Neutrophils # (Auto) 2.4, Lymphocytes # (Auto) 1.2L, Monocytes # (Auto) 0.7, Eosinophils # (Auto) 0.2, Basophils # (Auto) 0.0, Nucleated Red Blood Cells % (auto) 0.0, Anion Gap 7L, Glomerular Filtration Rate > 60.0, Calcium Level 8.5L, Iron Level 71, Total Iron Binding Capacity 187L, Transferrin % Saturation 38.0 CBC/BMP Laboratory Tests 02/11/21 19:02 02/12/21 08:57 02/12/21 12:45 FSBS Laboratory Tests Test 02/11/21 20:38 02/11/21 22:09 02/12/21 00:35 02/12/21 01:32 Range/Units Bedside Glucose (Misc Panel) 74 105 138 152 80-115 MG/DL Test 02/12/21 07:46 02/12/21 11:28 Range/Units Bedside Glucose (Misc Panel) 269 307 80-115 MG/DL Microbiology Microbiology 02/12/21 Blood Culture, Received Pending 02/12/21 Blood Culture, Received Pending Discharge Medications Scheduled Amlodipine Besylate (Norvasc) 5 Mg Tablet, 5 MG PO DAILY, (Reported) Aripiprazole (Abilify) 5 Mg Tablet, 5 MG PO DAILY, (Reported) Aspirin (Aspirin EC) 81 Mg Tablet.dr, 81 MG PO DAILY, (Reported) Atorvastatin Calcium (Atorvastatin Calcium) 40 Mg Tablet, 40 MG PO DAILY, (Reported) Citalopram Hydrobromide (Citalopram HBr) 40 Mg Tablet, 40 MG PO DAILY, (Reported) Clopidogrel Bisulfate (Plavix) 75 Mg Tablet, 75 MG PO DAILY, (Reported) Ferrous Sulfate (Ferrous Sulfate) 325 Mg Tab, 325 MG PO QWEEK, (Reported) SUNDAY Finasteride (Finasteride) 5 Mg Tablet, 5 MG PO DAILY, (Reported) Gabapentin (Gabapentin) 300 Mg Capsule, 300 MG PO BID, (Reported) Insulin Human Lispro (Novolog) 100 Unit/1 Ml Vial, 1 DOSE SC ASDIRECTED, (Reported) SLIDING SCALE. UP TO 100 UNITS DAILY CONTINUOUS THROUGH INSULIN PUMP Insulin Human Lispro (Humalog) 100 Unit/1 Ml Vial, 0 UNITS SC AC Insulin Human Lispro (Humalog) 100 Unit/1 Ml Vial, 0 UNITS SC QHS Lisinopril (Lisinopril) 5 Mg Tablet, 5 MG PO DAILY, (Reported) Multivitamins (Thera M Plus Tablet) 1 Each Tablet, 1 TAB PO DAILY, (Reported) Pantoprazole Sodium (Pantoprazole Sodium) 40 Mg Tablet.dr, 40 MG PO DAILY, (Reported) Prednisone (Prednisone) 1 Mg Tablet, 4 MG PO DAILY, (Reported) TAKES WITH 5MG FOR 9MG TOTAL Prednisone (Prednisone) 5 Mg Tablet, 5 MG PO DAILY, (Reported) TAKE WITH 4MG FOR 9MG TOTAL Sucralfate (Sucralfate) 1 Gm/10 Ml Oral.susp, 1 GM PO ACHS, (Reported) Scheduled PRN Acetaminophen (Acetaminophen) 325 Mg Tablet, 650 MG PO Q4H PRN for PAIN LEVEL 1- 4, (Reported) Docusate Sodium (Stool Softener) 100 Mg Capsule, 100 MG PO DAILY PRN for CONSTIPATION, (Reported) Glucagon,Human Recombinant (Glucagon Emergency Kit) 1 Mg Vial, 1 MG IM ASDIRECTED PRN for LOW BLOOD SUGAR, (Reported) Allergies Coded Allergies: No Known Allergies (Unverified , 02/11/21) GRETA COBB DO Feb 12, 2021 16:16
[2021-02-12] MEDS ORDERED: LEVEMIR (INSULIN DETEMIR) 1 UNITS/0.01ML SC SCH (21:00)
[2021-02-14 10:22] LABS: VITAMIN B12 LEVEL 444 PG/ML
[2021-02-14 10:25] LABS: FOLATE 20.3 NG/ML
== END 2021-02-12 14:16 | disposition left against medical advice (07) ==
LOC: M ED 18:21 → M ED INP 18:22 → M MSPAV 02-12 02:48
PROVIDERS: ADMIT Family Medicine; ATTEND Internal Medicine
DX: E10.649 Type 1 diabetes mellitus with hypoglycemia without coma (principal); Z79.4 Long term (current) use of insulin; Z96.41 Presence of insulin pump (external) (internal); D72.829 Elevated white blood cell count, unspecified; D64.9 Anemia, unspecified; Z89.511 Acquired absence of right leg below knee; Z89.512 Acquired absence of left leg below knee; I50.30 Unspecified diastolic (congestive) heart failure; E27.9 Disorder of adrenal gland, unspecified; Z87.891 Personal history of nicotine dependence; F12.10 Cannabis abuse, uncomplicated; K21.9 Gastro-esophageal reflux disease without esophagitis; N40.0 Benign prostatic hyperplasia without lower urinary tract symptoms; I73.9 Peripheral vascular disease, unspecified; F31.9 Bipolar disorder, unspecified; Z79.52 Long term (current) use of systemic steroids; Z79.899 Other long term (current) drug therapy
CPT/HCPCS: 36415; 80048; 80053; 82607; 82746; 83550; 83605; 84145; 85025; 85027; 85652; 86140; 87040; 87631; 96372; 96374; 96375; 99285; G0378; J1650

== ENCOUNTER → 2021-02-21 | Outpatient (CLI) | payer MEDICARE, MEDICAID ==
[~2021-02-21] MED LIST changes: -CITA40TA4 PO; +CITA40TA7 PO; -HALO1TA PO; +HALO1TAB PO; -LEVO500T3 PO; +LEVO500T4 PO; -LISI-898 PO; +LISI5TAB11 PO; +PANT-23 PO; +SUCR1ORA2 PO
[2021-02-21 13:21] LABS: BASO % 0.4 % (0.0-1.0); EOS # 0.1 10^3/uL (0.0-0.5); EOS % 0.8 % (0.0-3.0); HEMATOCRIT 27.7 % (42.0-52.0); HEMOGLOBIN 8.9 g/dl (13.5-17.5); LYMPH # 1.4 10^3/uL (1.5-5.0); LYMPH % 19.2 % (24.0-44.0); MEAN CORPUSCULAR HEMOGLOBIN 30.9 pg (27.0-33.0); MEAN CORPUSCULAR HGB CONC 32.1 g/dl (32.0-36.5); MEAN CORPUSCULAR VOLUME 96.2 fl (80.0-96.0); MONO # 0.3 10^3/uL (0.0-0.8); NEUTROPHILS # 5.5 10^3/uL (1.5-8.5); NEUTROPHILS % 75.2 % (36.0-66.0); PLATELET COUNT, AUTOMATED 305 10^3/uL (150-450); RED BLOOD COUNT 2.88 10^6/uL (4.30-6.10); WHITE BLOOD COUNT 7.3 10^3/uL (4.0-10.0)
[2021-02-21 13:54] LABS: C REACTIVE PROTEIN QUANTITATIV 0.32 MG/DL (0.00-0.30); CALCIUM LEVEL 9.2 MG/DL (8.8-10.2); CREATININE FOR GFR 1.65 MG/DL (0.70-1.30); GLOMERULAR FILTRATION RATE 45.4 (>49); POTASSIUM SERUM 5.4 MEQ/L (3.5-5.1)
[2021-02-21 13:59] LABS: ERYTHROCYTE SEDIMENTATION RATE 19 mm/hr (0-20)
== END ==
LOC: M PLALAB 11:11
PROVIDERS: ATTEND Internal Medicine Infectious Disease
DX: M86.9 Osteomyelitis, unspecified (principal)
CPT/HCPCS: 36415; 80048; 85025; 85652; 86140; G0463

== ENCOUNTER 2021-03-06 07:48 | Inpatient (IN) | payer MEDICARE, MEDICAID ==
[~2021-03-06] VITALS: Ht 175.3 cm; Wt 63.8 kg
[~2021-03-06 07:48] MED LIST changes: +CITA40TA4 PO; -CITA40TA7 PO; +HALO1TA PO; -HALO1TAB PO; +LEVO500T3 PO; -LEVO500T4 PO; +LISI-898 PO; -LISI5TAB11 PO
--- OUTSIDE RECORDS SUMMARY | 2021-03-06 07:53 | CCD ---
Author Author [facility] Organization [facility] Address Unknown Phone Unavailable Care Team Providers Care Caustic Preparer Name Role Phone Cecilio Ernandez Unavailable PROBLEMS Type Condition ICD9-CM Code [id number] Code Onset Dates Condition S tatus W/U Status Risk SNOMED Code Notes Problem Temporal arteritis M31.6 Active confirmed 4 18817388 Problem Chronic obstructive pulmonary disease, unspecified COPD ty pe J44.9 Active confirmed 58365481 Problem Type 1 diabetes mellitus with complication E10.8 Active confirmed 63301001 Problem Essential hypertension I10 Active confirmed 21190529 Problem Type 1 diabetes mellitus with other specified complication E10.69 Active confirmed 47958228 Problem 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 L97.519 Active confirmed Problem Cataract of both eyes, unspecified cataract type H 26.9 Active confirmed 73154240 Problem Adrenal insufficiency E27.40 Active confirmed 988557248 Problem PVD (peripheral vascular disease) I73.9 Active confirmed 508495181 Problem History of left below knee amputation Z89.512 Ac tive confirmed 554218132 Problem Benign prostatic hyperplasia with lower urinary tract symptoms N40.1 Active confirmed 140789733175966 Problem Chronic gastritis without bleeding, unspecified gastri tis type K29.50 Active confirmed 01294828 Problem Type 1 diabetes mellitus with foot ulcer E10.621 Active confirmed 252700831909256 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 9 Active confirmed 7836956824672496 Problem Amputation below knee S88.119A Active confirmed 641529116 Problem Osteomyelitis of other site, unspecified type M86. 9 Active confirmed 45737127 Problem Bipolar 1 disorder F31.9 Active confirmed 3 92051674 Problem Osteomyelitis, lower leg M86.9 Active confirmed 62666565 Problem Autonomic instability G90.9 Active confirmed 45034026 Problem Anemia of chronic disease D63.8 Active confirmed 966267616 Problem Acquired absence of left leg below knee Z89.512 Active confirmed 714564817820527 Problem Acquired absence of right leg below knee Z89.511 Active confirmed 863893444 Problem Below-knee amputation of right lower extremity S88 .111A Active confirmed 234071829 Problem Pancytopenia D61.818 Active confirmed 855530 005 ALLERGIES No Known Allergies ENCOUNTERS from 1960 to 2021-02-22 Encounter Location Date Provider Diagnosis [facility] Infectious [facility] [place] [address] [facility] [phone] [place] [address] Jan, Cecilio Ernandez IMMUNIZATIONS Vaccine Route Administration Date Status Influenza [...] School Language: Question Answer Notes Languages spoken: Sinhala Baptist: Question Answer Notes Baptist 08 [employer] Alcohol Screening: Question Answer Notes Did you [...] Notes Start Da te End Date Status Aspirin Adult Low Dose 81 MG 1 tablet Orally Once a day Active Ferrous Sulfate 325 (65 Fe) MG 1 tablet Orally weekly for 90 day (s) once a week Active Clopidogrel Bisulfate 75 MG 1 tablet Orally Once a day Active Atorvastatin Calcium 40MG 1 tablet Orally Once a day Active Pantoprazole Sodium 40 MG 1 tablet Orally Once a day for 30 day(s) Active predniSONE 5 MG 1 tablet Orally Once a day Active amLODIPine Besylate 5 MG 1 tablet Orally Once a day for 30 day(s ) Jan, Active Finasteride 5 MG 1 tablet Orally Once a day for 90 days Active Glucagon (rDNA) 1 MG as directed Injection Active ARIPiprazole 5 MG 1 tablet Orally Once a day for 90 days 0 Jul, Active Gabapentin 300 MG 1 cap Orally bid for 90 day(s) Active Protonix 40 MG 1 tablet Orally bid changed to BID July, Not-Taking PROCEDURES No Information RESULTS No Results REASON FOR VISIT No Information MEDICAL (GENERAL) HISTORY Type Description Date Medical [...] History right leg amputation 03/04/2020 Hospitalization History [facility] 10/2016 Hospitalization History hypoglycemia 12/02/2016-12/12/19 17 Hospitalization History autonomic instability 04/02/201707/2017 Hospitalization History hypergycemia 08/04/2019- 0 Hospitalization History leg amputation 03/04/2020 Hospitalization History [facility] 05/04/2020- 1 Hospitalization History [facility] 08/15/2020 Hospitalization History amputation site infection 08/04- 021 Hospitalization History Low Blood Sugar 12/19/2020 Goals Section No Information Health Concerns No Information MEDICAL EQUIPMENT No Information MENTAL STATUS No Information FUNCTIONAL STATUS No Information ASSESSMENTS No Information PLAN OF TREATMENT Medication Medication Name Sig Start Date Stop Date predniSONE 5 MG 1 tablet Orally Once a day Aspirin Adult Low Dose 81 MG 1 tablet Orally Once a day Clopidogrel Bisulfate 75 MG 1 tablet Orally Once a day Atorvastatin Calcium 40MG 1 tablet Orally Once a day Next Appt Details Provider Name:Inocente Ledesma 01:00:00 PM, [address], , [place], [address], Provider Name:Alayna Simpson, 2021-03-22 10:30:00 AM, [address] [facility], , [place], [address], Insurance Providers Payer Name Payer Address Payer Phone Insured Name Patient Relati onship to Insured Coverage Start Date Coverage End Date MEDICAID [email or web address] [address] [facility] [id number] [place] GARCIA self MEDICARE COMPLETE [facility] [address] [address] [facility] [id number] SEBASTIEN GARCIA self
--- OUTSIDE RECORDS SUMMARY | 2021-03-06 07:53 | CCD ---
Author Author [facility] Organization [facility] Address Unknown Phone Unavailable Care Team Providers Care Workforce Management Coordinator Name Role Phone Alayna Simpson Unavailable PROBLEMS Type Condition ICD9-CM Code [id number] Code Onset Dates Condition S tatus W/U Status Risk SNOMED Code Notes Problem Temporal arteritis M31.6 Active confirmed 4 20646138 Problem Chronic obstructive pulmonary disease, unspecified COPD ty pe J44.9 Active confirmed 22497802 Problem Type 1 diabetes mellitus with complication E10.8 Active confirmed 96318433 Problem Essential hypertension I10 Active confirmed 17159851 Problem Type 1 diabetes mellitus with other specified complication E10.69 Active confirmed 34569701 Problem 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 L97.519 Active confirmed Problem Cataract of both eyes, unspecified cataract type H 26.9 Active confirmed 21852276 Problem Adrenal insufficiency E27.40 Active confirmed 229130068 Problem PVD (peripheral vascular disease) I73.9 Active confirmed 204004971 Problem History of left below knee amputation Z89.512 Ac tive confirmed 147623458 Problem Benign prostatic hyperplasia with lower urinary tract symptoms N40.1 Active confirmed 904932781605425 Problem Chronic gastritis without bleeding, unspecified gastri tis type K29.50 Active confirmed 20319408 Problem Type 1 diabetes mellitus with foot ulcer E10.621 Active confirmed 905883321963486 Problem 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 9 Active confirmed 4748401190247473 Problem Amputation below knee S88.119A Active confirmed 650919878 Problem Osteomyelitis of other site, unspecified type M86. 9 Active confirmed 04867861 Problem Bipolar 1 disorder F31.9 Active confirmed 3 99355701 Problem Osteomyelitis, lower leg M86.9 Active confirmed 25446064 Problem Autonomic instability G90.9 Active confirmed 92397050 Problem Anemia of chronic disease D63.8 Active confirmed 883110124 Problem Acquired absence of left leg below knee Z89.512 Active confirmed 174080078122395 Problem Acquired absence of right leg below knee Z89.511 Active confirmed 370686628 Problem Below-knee amputation of right lower extremity S88 .111A Active confirmed 176829417 Problem Pancytopenia D61.818 Active confirmed 885972 005 ALLERGIES No Known Allergies ENCOUNTERS from 1960 to 2021-02-22 Encounter Location Date Provider Diagnosis [address] [phone] [place] [address] 19 Jan, 2021 Alayna Simpson Essential hypertension I10 ; Depression, unspecified depression type F32.A and Hospital discharge follow-up Z09 IMMUNIZATIONS Vaccine [...] School Language: Question Answer Notes Languages spoken: Yoruba Congregational: Question Answer Notes [employer] Alcohol Screening: Question Answer Notes Did you [...] years REASON FOR REFERRAL from 1960 to 2021-02-22 Reason 60 y old M with multiple chr onic medical conditions and worsening depression for counseling. Diagnosis 1 Depression, unspecified depr ession type (F32.A) Referral Organization [facility] Harini Referring Provider First Name Alayna Referring Provider Last Name Calvin Referring Provider Specialty Family Medicine Referred Organization [facility] Referred Provider BijanNereida Referred Address [address] [place] [phone] [place] [phone] Referred Provider Specialty Anastacio love Referral Priority Routine VITAL SIGNS Weight 159.2 lbs Jan, Weight-kg 72.21 kg Jan, Height 69 in Jan, BMI 23.51 kg/m2 Jan, Heart Rate 93 /min Jan, Respiratory Rate 17 /min Jan, Temperature 97.6 degrees Fahrenheit Jan, Oximetry 98 Jan, Blood pressure systolic 110 mm Hg Jan, Blood pressure diastolic 48 mm Hg Jan, MEDICATIONS Medication SIG (Take, [...] Information RESULTS No Results REASON FOR VISIT [facility] 02/12- low blood sugar MEDICAL (GENERAL) HISTORY Type Description [...] History right leg amputation 03/04/2020 Hospitalization History [facility] 10/2016 Hospitalization History hypoglycemia 12/02/2016-12/12/19 17 Hospitalization History autonomic instability 04/02/201707/2017 Hospitalization History hypergycemia 08/04/2019- 0 Hospitalization History leg amputation 03/04/2020 Hospitalization History [facility] 05/04/2020- 1 Hospitalization History [facility] 08/15/2020 Hospitalization History amputation site infection 08/04- 021 Hospitalization History Low Blood Sugar 12/19/2020 Goals Section No Information Health Concerns No Information MEDICAL EQUIPMENT No Information MENTAL STATUS No Information FUNCTIONAL STATUS No Information ASSESSMENTS Encounter Date Diagnosis Assessment Notes Treatment Notes Treatm ent Clinical Notes Jan, Essential hypertension (ICD-10 - I10) Patient reports he has been taking 5 mg amlodipine once daily. Has not been taking the lisinopril because it was discontinued at previous hospitalization. Blood pressures have been running in the low 120s systolic. Advised continued use of amlodipine at 5 mg daily. Will continue to hold lisinopril. Advised pt to notify me if blood pressures at home are consistently lower than 120 systolic; if so, will consider discontinuing amlodipine. Jan, Depression, unspecified depression type (ICD-10 - F32.A) Patient reports worsening depression lately; denies any suicidal or homicidal ideation. Patient has been off of his citalopram for more than 6 weeks, since it should be avoided while on linezolid. Patient is finished with linezolid in a few days. Advised patient to restart citalopram once he is done with antibiotic treatment. Patient also inquired regarding starting counseling. Will send referral to establish with our social work assistant here, if she is able to take on more new patients. Advised follow-up in 6 weeks, or sooner if needed. Jan, Hospital discharge follow-up (ICD-10 - Z09) PLAN OF TREATMENT Medication Medication Name Sig Start Date Stop Date predniSONE 5 MG 1 tablet Orally Once a day Aspirin Adult Low Dose 81 MG 1 tablet Orally Once a day Clopidogrel Bisulfate 75 MG 1 tablet Orally Once a day Atorvastatin Calcium 40MG 1 tablet Orally Once a day Treatment Notes Assessment Notes Clinical Notes Essential hypertension Patient reports h e has been taking 5 mg amlodipine once daily. Has not been taking the lisinopril because it was discontinued at previous hospitalization. Blood pressures have been running in the low 120s systolic. Advised continued use of amlodipine at 5 mg daily. Will continue to hold lisinopril. Advised pt to notify me if blood pressures at home are consistently lower than 120 systolic; if so, will consider discontinuing amlodipine. Depression, unspecified depression type Patient reports worsening depression lately; denies any suicidal or homicidal ideation. Patient has been off of his citalopram for more than 6 weeks, since it should be avoided while on linezolid. Patient is finished with linezolid in a few days. Advised patient to restart citalopram once he is done with antibiotic treatment. Patient also inquired regarding starting counseling. Will send referral to establish with our social work assistant here, if she is able to take on more new patients. Advised follow-up in 6 weeks, or sooner if needed. Referrals Referral Date Details 60 y old M with multiple chr onic medical conditions and worsening depression for counseling., [facility], [address] [place], [address] Next Appt Details 6 Weeks Reason:depression f/u Provider Name:Inocente Ledesma, 01:00:00 PM, [address], , [place], [address], Provider Name:Alayna Simpson, 2021-03-22 10:30:00 AM, [address] [facility], , [place], [address], Follow Up:6 Weeksdepression f/u Insurance Providers Payer Name Payer Address Payer Phone Insured Name Patient Relati onship to Insured Coverage Start Date Coverage End Date MEDICAID [employer] [address] [facility] [id number] SEBASTIEN GARCIA self MEDICARE COMPLETE [employer] [address] [address] [facility] [id number] SEBASTIEN GARCIA self
--- OUTSIDE RECORDS SUMMARY | 2021-03-06 07:53 | CCD | Continuity of Care Document ---
Author Author Hermann KEVIN MD Organization Unknown Address [address] [facility] [address], [address] [place] [address] Phone [phone] Care Team Providers Care Body Technician Name Role Phone Christelle Cook M.D. AUTM [phone] AUTM Unavailable Job Raphael MD AUTM [phone] [facility] - Medical Records AUTM Kanu Velazquez M.D. AUTM AUTM Unavailable Alayna Simpson M.D. AUTM [phone] Problems Active Problems Provider Date Hemorrhage of [...] as directed Lester Echevarria M.D. 08/23/2017 [place]ump [place] Hammerer To Left BKA as directed Lester Echevarria M.D. 08/23/2017 Referral For Evaluation And Treat To [facility] Lester Ecehvarria M.D. 08/22/2017 Clopidogrel Bisulfate 75mg Tablets 1 [...] lb BMI (Body Mass Index) 24.2 kg/m2 [place] Body Weight 160 lb Weight 74.390 kg BSA (Body Surface Area) 1.90 m2 01/06/2021 11:53am BP Systolic 138 mmHg BP Diastolic 80 mmHg Body Temperature 97.9 F Height 69 inches 5'9" Weight 152.00 lb BMI (Body Mass Index) 22.4 kg/m2 [place] Body Weight 160 lb Weight 68.947 kg BSA (Body Surface Area) 1.84 m2 Results Description No Information Available Procedures Date Code Description Status 01/12/2021 09730 Debridement Skin, Subcutaneous T issue & Muscle Completed 12/08/2020 24047 Re-Amputation Leg Completed 11/11/2020 18786 Office/Outpatient Established Lo w MDM 20-29 Min Completed 11/01/2020 83464 Office/Outpatient Established Lo w MDM 20-29 Min Completed Medical Devices Description No Information Available Encounters Type Date Location Provider Dx Diagnosis Office Visit 02/03/2021 8:45a [facility] Karen Kevin MD T87.89 Other complications of amput ation stump E10.8 Type 1 diabetes mellitus wit h unspecified complications Z89.511 Acquired absence of right le g below knee Z47.81 Encounter for orthopedic aft ercare following surgical amp Office Visit 01/06/2021 11:45a [facility] Karen Kevin MD T81.30xA Disruption of wound, unspeci fied, initial encounter 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.1 Other hypoglycemia Office Visit 12/17/2020 1:00p [facility] Karen Kevin MD T87.43 Infection of amputation stum p, right lower extremity T81.30xA Disruption of wound, unspeci fied, initial encounter Z89.511 Acquired absence of right le g below knee Office Visit 11/11/2020 8:30a [facility] Manuel salinas MD Z89.511 Acquired absence of right leg below knee T87.89 Other complications of amput ation stump Office Visit 11/01/2020 2:30p [facility] Ranjeet frank MD T81.30xA Disruption of wound, unspecified, initia l encounter Assessments Date Code Description Provider 02/03/2021 T87.89 Other complications of amputatio n stump Anais Kevin MD 02/03/2021 E10.8 Type 1 diabetes mellitus with un specified complications Anais Kevin MD 02/03/2021 Z89.511 Acquired absence of right leg be low knee Anais Kevin MD 02/03/2021 Z47.81 Encounter for orthop edic aftercare following surgical amputation Anais Kevin MD 01/12/2021 T81.30xA Disruption of wound, unspecified , [...] unspecified , initial encounter Ranjeet Platt MD Plan of Treatment Future Appointment(s):* 03/30/2021 10:00 am - Kanu Velazquez M.D. at [facility] 02/03/2021 - Anais Kevin MD* T87.89 Other complications of amputation stump* Comments:* Right BKA wound being treated with wound VAC dressing changes.The wound is still 3 cm deep. The wound is not exposed. The wound is clean.Continue wound VAC dressings, till the wound depth decreases to the level of the skin and the subcutaneous tissue.Follow-up as required. * E10.8 Type 1 diabetes mellitus with unspecified complications * Z89.511 Acquired absence of right leg below knee * Z47.81 Encounter for orthopedic aftercare following surgical amputation Functional Status Description No Information Available Mental Status Description No Information Available Referrals Description No Information Available
--- OUTSIDE RECORDS SUMMARY | 2021-03-06 07:53 | CCD ---
Author Author [facility] Organization [facility] [employer] Address Unknown Phone Unavailable Care Team Providers Care Aerospace Medicine Physician Name Role Phone Inocente Ledesma Unavailable PROBLEMS Type Condition ICD9-CM Code [id number] Code Onset Dates Condition S tatus W/U Status Risk SNOMED Code Notes Problem Temporal arteritis M31.6 Active confirmed 4 10694461 Problem Chronic obstructive pulmonary disease, unspecified COPD ty pe J44.9 Active confirmed 93828953 Problem Type 1 diabetes mellitus with complication E10.8 Active confirmed 11957894 Problem Essential hypertension I10 Active confirmed 32107079 Problem Bipolar 1 disorder F31.9 Active confirmed 3 32611125 Problem Autonomic instability G90.9 Active confirmed 96403964 Problem Osteomyelitis of right foot, unspecified type M86. 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 Active confirmed 834455263 Problem PVD (peripheral vascular disease) I73.9 Active confirmed 248532940 Problem History of left below knee amputation Z89.512 Ac tive confirmed 028205101 Problem Benign prostatic hyperplasia with lower urinary tract symptoms N40.1 Active confirmed 737961401300429 Problem Chronic gastritis without bleeding, unspecified gastri tis type K29.50 Active confirmed 89460625 Problem Type 1 diabetes mellitus with foot ulcer E10.621 Active confirmed 106871744337164 Problem 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 Active confirmed 68057 7001 Problem Type 1 diabetes mellitus with other specified complication E10.69 Active confirmed 18275941 Problem 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 L97.519 Active confirmed Problem Amputation below knee S88.119A Active confirmed 368205316 Problem Acquired absence of left leg below knee Z89.512 Active confirmed 792977864094883 Problem Acquired absence of right leg below knee Z89.511 Active confirmed 216878979 Problem Wound dehiscence T81.30XA Active confirmed 2 14343559 Problem Adrenal insufficiency E27.40 Active confirmed 815141438 Problem Osteomyelitis, lower leg M86.9 Active confirmed 20079911 Problem Anemia of chronic disease D63.8 Active confirmed 301487339 Problem Cataract of both eyes, unspecified cataract type H 26.9 Active confirmed 99999918 Problem Below-knee amputation of right lower extremity S88 .111A Active confirmed 544100197 Problem Pancytopenia D61.818 Active confirmed 246545 005 Problem Osteomyelitis of other site, unspecified type M86. 9 Active confirmed 23873111 Problem Non-healing amputation site T87.89 Active confirmed 428748686 ALLERGIES No Known Allergies ENCOUNTERS from 1960 to 2021-03-03 Encounter Location Date Provider Diagnosis [facility] [address] [phone] [place] [address] Mar, Inocente Ledesma Non-healing amputation site T87.89 IMMUNIZATIONS Vaccine Route Administration Date Status Influenza [...] Language: Question Answer Notes Languages spoken: Azeri Uatsdin: Question Answer Notes Uatsdin 08 Moravian Alcohol Screening: Question Answer Notes Did you [...] years REASON FOR REFERRAL from 1960 to 2021-03-03 Reason PROSTHESIS ADJUSTMENT Diagnosis 1 Non-healing amputation site (T87.89) Referral Organization [facility] Wound Care Referring Provider First Name Inocente Referring Provider Last Name Callie Referring Provider Specialty Wound Care Referred Provider [facility] Referred Provider Specialty Other supplier Referral Priority Routine General Notes HenriqueJody 03/03/2021 8: 20:31 AM > REFERRAL SENT Reason CT ANGIO Diagnosis 1 Non-healing amputation site (T87.89) Referral Organization [facility] Wound Care Referring Provider First Name Inocente Referring Provider Last Name Lisandromoe Referring Provider Specialty Wound Care Referred Organization [facility] er Referred Provider Pema De Luna ([facility]) Referred Address [address] [place] [address],[facility] Referred Provider Specialty Vascular and Interventiona l Radiology Referral Priority Routine General Notes Jody Duenas 03/03/2021 8: 18:44 AM > REFERRAL SENT VITAL SIGNS Weight 157 lbs Mar, Height 69 in Mar, BMI 23.18 kg/m2 Mar, Heart Rate 84 /min Mar, Respiratory Rate 16 /min Mar, Temperature 98.1 degrees Fahrenheit Mar, Oximetry 99 Mar, Blood pressure systolic 101 mm Hg Mar, Blood pressure diastolic 44 mm Hg Mar, MEDICATIONS Medication SIG (Take, Route, Frequency, Duration) Notes Start Da te End Date Status Clopidogrel Bisulfate 75 MG 1 tablet Orally Once a day Unknown Ferrous Sulfate 325 (65 Fe) MG 1 tablet Orally weekly for 90 day (s) once a week Unknown predniSONE 5 MG 1 tablet Orally Once a day Unknown ARIPiprazole 5 MG 1 tablet Orally Once a day for 90 days 0 Jul, Unknown Gabapentin 300 MG 1 cap Orally bid for 90 day(s) Unknown Glucagon (rDNA) 1 MG as directed Injection Unknown Protonix 40 MG 1 tablet Orally bid changed to BID July, Unknown Atorvastatin Calcium 40MG 1 tablet Orally Once a day Unknown amLODIPine Besylate 5 MG 1 tablet Orally Once a day for 30 day(s ) Jan, Unknown Aspirin Adult Low Dose 81 MG 1 tablet Orally Once a day Unknown Finasteride 5 MG 1 tablet Orally Once a day for 90 days Unknown Pantoprazole Sodium 40 MG 1 tablet Orally Once a day for 30 day(s) Unknown PROCEDURES from 1960 to 2021-03-03 Procedure Date Ordered Result Body Site Medication: 4% Lidocaine topical cream (Anecream) 5gm 2021-03-02 N/A Medication: Silver Nitrate Stick topically 2021-03-02 N/A RESULTS No Results REASON FOR VISIT Right stump wound with wound vac MEDICAL (GENERAL) HISTORY Type Description Date Medical [...] History right leg amputation 03/04/2020 Hospitalization History [facility] 10/2016 Hospitalization History hypoglycemia 12/02/2016-12/12/19 17 Hospitalization History autonomic instability 04/02/201707/2017 Hospitalization History hypergycemia 08/04/2019- 0 Hospitalization History leg amputation 03/04/2020 Hospitalization History [facility] 05/04/2020- 1 Hospitalization History [facility] 08/15/2020 Hospitalization History amputation site infection 08/04- 021 Hospitalization History Low Blood Sugar 12/19/2020 Goals Section No Information Health Concerns No Information MEDICAL EQUIPMENT No Information MENTAL STATUS No Information FUNCTIONAL STATUS No Information ASSESSMENTS Encounter Date Diagnosis Assessment Notes Treatment Notes Treatm ent Clinical Notes Mar, Non-healing amputation site (ICD-10 - T87.89) PLAN OF TREATMENT Referrals Referral Date Details PROSTHESIS ADJUSTMENT, [facility], Pema De Luna ([facility] ), [address] [place], [address], Next Appt Details 1 Week Reason: Provider Name:Inocente Ledesma, 10:15:00 AM, [address], , [place], [address], Provider Name:Alayna Simpson, 2021-03-22 10:30:00 AM, [address], , [place], [address], Insurance Providers Payer Name Payer Address Payer Phone Insured Name Patient Relati onship to Insured Coverage Start Date Coverage End Date MEDICAID [employer] [facility] [address] [facility] [id number] [place] self MEDICARE COMPLETE [employer] [address] [address] [facility] [phone] SEBASTIEN GARCIA self
--- OUTSIDE RECORDS SUMMARY | 2021-03-06 07:53 | CCD ---
Author Author [facility] Organization [facility] Address Unknown Phone Unavailable Care Team Providers Care Management Professor Name Role Phone Alayna Simpson Unavailable PROBLEMS Type Condition ICD9-CM Code [id number] Code Onset Dates Condition S tatus W/U Status Risk SNOMED Code Notes Problem Chronic obstructive pulmonary disease, unspecified COPD ty pe J44.9 Active confirmed 53103847 Problem Essential hypertension I10 Active confirmed 40940143 Problem Temporal arteritis M31.6 Active confirmed 4 58127648 Problem 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 L97.519 Active confirmed Problem Type 1 diabetes mellitus with foot ulcer E10.621 Active confirmed 559089019589693 Problem Adrenal insufficiency E27.40 Active confirmed 865461504 Problem Anemia of chronic disease D63.8 Active confirmed 966306794 Problem History of left below knee amputation Z89.512 Ac tive confirmed 798489000 Problem Cataract of both eyes, unspecified cataract type H 26.9 Active confirmed 35724003 Problem Chronic gastritis without bleeding, unspecified gastri tis type K29.50 Active confirmed 03644669 Problem PVD (peripheral vascular disease) I73.9 Active confirmed 976693455 Problem 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 9 Active confirmed 7033243579562519 Problem Pancytopenia D61.818 Active confirmed 789843 005 Problem Autonomic instability G90.9 Active confirmed 43688604 Problem Osteomyelitis of other site, unspecified type M86. 9 Active confirmed 26460617 Problem Type 1 diabetes mellitus with complication E10.8 Active confirmed 25396795 Problem Bipolar 1 disorder F31.9 Active confirmed 3 34123524 Problem Amputation below knee S88.119A Active confirmed 768903845 Problem Acquired absence of left leg below knee Z89.512 Active confirmed 914822752279101 Problem Acquired absence of right leg below knee Z89.511 Active confirmed 966552162 Problem Below-knee amputation of right lower extremity S88 .111A Active confirmed 029373227 ALLERGIES No Known Allergies ENCOUNTERS from 1960 to 2021-02-14 Encounter Location Date Provider Diagnosis [address] [phone] [place] [address] 15 Jan, 2021 Alayna Simpson IMMUNIZATIONS Vaccine Route Administration Date [...] School Language: Question Answer Notes Languages spoken: Czech Confucianism: Question Answer Notes Confucianism 08 Jain Alcohol Screening: Question Answer Notes Did you [...] tablet Orally bid for 30 Days Not-Taking amLODIPine Besylate 5 MG 1 tablet Orally Once a day for 30 day(s ) Jan, Active Bisacodyl 10 MG 1 suppository as needed Rectal Once a day for 1 day(s) Dec, Not-Taking ARIPiprazole 5 MG 1 tablet Orally Once a day for 90 days 0 6 Jul, 2020 Active Glucagon (rDNA) 1 MG as directed Injection Active Pantoprazole Sodium 40 MG 1 tablet Orally Once a day for 30 day(s) Active NovoLOG 100 UNIT/ML as directed Subcutaneous Ins ulin pump, pump up to 100 units daily sliding scale July, Not-Taking Aspirin Adult Low Dose 81 MG 1 tablet Orally Once a day Active Lisinopril 5 MG 1 tablet Orally Once a day for 90 days Active CeleXA 40 MG 1 tab Orally [...] Information RESULTS No Results REASON FOR VISIT lisinopril refill MEDICAL (GENERAL) HISTORY Type Description Date Medical [...] History right leg amputation 03/04/2020 Hospitalization History [facility] 10/2016 Hospitalization History hypoglycemia 12/02/2016-12/12/19 17 Hospitalization History autonomic instability 04/02/201707/2017 Hospitalization History hypergycemia 08/04/2019- 0 Hospitalization History leg amputation 03/04/2020 Hospitalization History [facility] 05/04/2020- 1 Hospitalization History [facility] 08/15/2020 Hospitalization History amputation site infection 08/04- 021 Hospitalization History Low Blood Sugar 12/19/2020 Goals Section No Information Health Concerns No Information MEDICAL EQUIPMENT No Information MENTAL STATUS No Information FUNCTIONAL STATUS No Information ASSESSMENTS No Information PLAN OF TREATMENT Medication Medication Name Sig Start Date Stop Date Lisinopril 5 MG 1 tablet Orally Once a day for 90 days amLODIPine Besylate 5 MG 1 tablet Orally Once a day for 30 day(s ) Jan, Next Appt Details Provider Name:Alayna Simpson, 2021-02-18 03:00:00 PM, [address] [facility] [phone], [place], [address], Provider Name:Cecilio Ernandez, 2021-02-01 2 10:00:00 AM, [facility], , [place], [address], Provider Name:Alayna Simpson, 2021-02-22 02:30:00 PM, [address] [facility] [phone], [place], [address], Provider Name:Inocente Ledesma, 01:00:00 PM, [address], , [place], [address], Insurance Providers Payer Name Payer Address Payer Phone Insured Name Patient Relati onship to Insured Coverage Start Date Coverage End Date MEDICARE COMPLETE [facility] [address] [address] [facility] [address] SEBASTIEN GARCIA self MEDICAID [employer] [address] [facility] [id number] SEBASTIEN GARCIA self
--- OUTSIDE RECORDS SUMMARY | 2021-03-06 07:53 | CCD ---
Author Author [facility] Address Unknown Phone Unavailable Care Team Providers Care Scientific Illustrator Name Role Phone Unavailable Unavailable Problems Condition Name Condition Details Condition Category Status Onset Date Resolution Date Last Treatment Date Treating Clinician Comments Other complications of amputation stump Other complications of amputation stump Diagnosis Active Luiza Marolf Infection of amputation stump, right lower extremity I nfection of amputation stump, right lower extremity Diagnosis Active B obbie Fay Marolf Type 1 diabetes mellitus with other specified complica tion Type 1 diabetes mellitus with other specified complication Diagnosis Active Luiza Marolf Osteomyelitis, unspecified Osteomyelitis, unspecified Diagnosis Active Luiza Marolf Acquired absence of left leg below knee Acquired absence of left leg below knee Diagnosis Active Luiza Marolf Type 1 diabetes mellitus with diabetic peripheral gabriel opathy without gangrene Type 1 diabetes mellitus with diabetic peripheral angiopathy without gangrene Diagnosis Active Luiza Marolf 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 Diagnosis Active B obbikarla Fay Marolf 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 Diagnosis Active Luiza Marolf Type 1 diabetes mellitus with diabetic autonomic (poly )neuropathy Type 1 diabetes mellitus with diabetic autonomic (poly)neuropathy Diagnosis Active Luiza Marolf Poisoning by cannabis (derivatives), acc idental (unintentional), subsequent encounter Poisoning by cannabis (derivatives), acc idental (unintentional), subsequent encounter Diagnosis Active Luiza Marolf Nausea with vomiting, unspecified Nausea with vomiting, unspecif ied Diagnosis Active Luiza Marolf Psoriasis, unspecified Psoriasis, unspecified Diagnosis Active Luiza Marolf Benign prostatic hyperplasia with lower urinary tract symptoms Benign prostatic hyperplasia with lower urinary tract symptoms Diagnosis Active Luiza Marolf Rheumatoid arthritis, unspecified Rheumatoid arthritis, unspecif ied Diagnosis Active Luiza Marolf Unspecified adrenocortical insufficiency Unspecified a drenocortical insufficiency Diagnosis Active Palma Matos Migraine, unspecified, not intractable, without status migrainosus Migraine, unspecified, not intractable, without status migrainosus Diagnosis Active Palma Matos Hyperlipidemia, unspecified Hyperlipidemia, unspecified Diagnosis Active Palma Matos 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 Diagnosis Active Palma Matos Type 1 diabetes mellitus with unspecifie d diabetic retinopathy without macular edema Type 1 diabetes mellitus with unspecifie d diabetic retinopathy without macular edema Diagnosis Active Palma Matos [facility] (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 terminal superintendent (current) use of as pirin Diagnosis Active Palma Matos terminal superintendent (current) use of anticoagulants terminal superintendent (c urrent) use of anticoagulants Diagnosis Active Palma castelan Acquired absence of right leg below knee Acquired abse nce of right leg below knee Diagnosis Active Luiza Shawna Personal history of COVID-19 Personal history of COVID-19 Diagnosis Ac tive Palma Matos Personal history of nicotine dependence Personal history of nicotine dependence Diagnosis Active Palma Matos Pain frequent pain Pain Mgmt Active 2020-12-14 11:10:00 Charlette Wolfe Pain knowledge/skill deficit: pt Pain Mgmt Active 2020-12-14 11:10:0 0 Charlette Wolfe Endo/Kody knowledge/skill deficit: pt Endo/Kody Active 2020-12-14 11:10 :00 Charlette Wolfe Endo/Kody diabetic foot care Endo/Kody Active 2020-12-14 11:10:00 Charlette Wolfe Endo/Kody k/s deficit hypo/hyperglycemia: pt Endo/Kody Active 2020-12-14 11:10:00 Charlette Wolfe Endo/Kody anti-coagulation therapy Endo/Kody Active 2020-12-14 11:10:00 Chalrette Wolfe Integument surgical wound present Integument Active 2020-12-14 11:10:00 Charlette Wolfe Integument skin integrity risk Integument Active 2020-12-14 11:10:00 Charlette Wolfe Integument knowledge/skill deficit: pt Integument Active 2020-12-14 11:10:00 Charlette Wolfe Nutrition knowledge/skill deficit: pt Nutrition Active 2020-12-14 11:10 :00 Charlette Wolfe Elimination constipation Elimination Active 2020-12-14 11:10:00 Charlette Wolfe Elimination knowledge/skill deficit: pt Elimination Active 12-14 11:10:00 Charlette Wolfe Activity ADL assistance required Activity Active 2020-12-14 11:10:00 Charlette Wolfe Activity knowledge/skill deficit: pt Activity Active 2020-12-14 11:10:0 0 Charlette Wolfe Activity self-care deficit Activity Active 2020-12-14 11:10:00 Charlette Wolfe Safety knowledge/skill deficit: pt Safety Active 2020-12-14 11:10:00 Charlette Wolfe Safety fall risk factor present Safety Active 2020-12-14 11:10:00 Charlette Wolfe Safety risk for hospitalization Safety Active 2020-12-14 11:10:00 Charlette Wolfe Safety can be left alone for only short periods Safety Active 2020-12-14 11:10:00 Charlette Wolfe Medication oral med assistance required Meds Active 2020-12-14 11:10 :00 Charlette Wolfe Medication injectable med assistance required Meds Active 2020 11:10:00 Charlette Wolfe Medication knowledge/skill deficit: pt Meds Active 2020-12-14 11:10: 00 Charlette Wolfe Musculoskeletal transfer assistance required Musculoskeletal Active 2020-12-14 11:10:00 Charlette Wolfe Musculoskeletal knowledge/skill deficit: pt Musculoskeletal Active 2020-12-14 11:10:00 Charlette Wolfe Musculoskeletal requires human assist to leave home Musculoskeletal Active 2020-12-14 11:10:00 Charlette Wolfe Respiratory dyspnea present Respiratory Active 2021-01-19 12:45:00 Melinda Duebbe Nutrition nutritional restrictions Nutrition Active 2021-01-19 12:45:00 Melinda Duebbe Cardio hypertension Cardiovascular Active 2021-02-07 07:45:00 Palma Matos Elimination diarrhea Elimination Active 2021-02-25 10:51:00 Jody Santos Allergies, Adverse Reactions, Alerts Allergy Name Allergy Type Status Severity Reaction(s) Onset Date Inacti ve Date Treating Clinician Comments Unknown None Active Unknown None Unknown No Known Allergies For This Patient Medications Ordered Medication Name Filled Medication Name Start Date Stop Da te Current Medication? Ordering Clinician Indication Dosage Frequency Signature (SIG) Comments Components amLODIPine 5 mg tablet amLODIPine 5 mg tablet 2020-12-14 2020-12-24 Y es Alayna Calvin Unknown Unknown linezolid 600 mg tablet linezolid 600 mg tablet 2020-12-14 Y es Alayna Calvin Unknown Unknown lisinopriL 5 mg tablet lisinopriL 5 mg tablet 2020-12-14 2020-12-24 Y es Alayna Calvin Unknown Unknown ARIPiprazole 5 mg tablet ARIPiprazole 5 mg tablet 2020-12-14 Yes Alayna Calvin Unknown Unknown Aspirin Low Dose 81 mg tablet,delayed release Aspirin Low Dose 81 mg tablet,delayed release 2020-12-14 Yes Alayna Calvin Unknown Un known atorvastatin 40 mg tablet atorvastatin 40 mg tablet 2020-12-14 Yes Alayna Calvin Unknown Unknown brimonidine 0.1 % eye drops brimonidine 0.1 % eye drops 2020-12-14 2020-12-24 Yes Alayna Calvin Unknown Unknown clopidogreL 75 mg tablet clopidogreL 75 mg tablet 2020-12-14 Yes Alayna Calvin Unknown Unknown ferrous sulfate 325 mg (65 mg iron) tablet ferrous sul fate 325 mg (65 mg iron) tablet 2020-12-14 Yes Alayna Calvin Unknown Unknown finasteride 5 mg tablet finasteride 5 mg tablet 2020-12-14 Y es Alayna Calvin Unknown Unknown gabapentin 300 mg capsule gabapentin 300 mg capsule 2020-12-14 Yes Alayna Calvin Unknown Unknown Glucagon Emergency Kit 1 mg solution for injection Glu cagon Emergency Kit 1 mg solution for injection 2020-12-14 Yes Alayna Calvin Unknown Un known NovoLOG U-100 Insulin aspart 100 unit/mL subcutaneous solution NovoLOG U-100 Insulin aspart 100 unit/mL subcutaneous solution 2020-12-14 Yes Alayna Calvin Unknown Unknown multivitamin tablet multivitamin tablet 2020-12-14 Yes Cristina Simpson Unknown Unknown pantoprazole 40 mg tablet,delayed release pantoprazole 40 mg tablet,delayed release 2020-12-14 Yes Alayna Simpson Unknown Unknown predniSONE 1 mg tablet predniSONE 1 mg tablet 2020-12-14 Yes Alayna Simpson Unknown Unknown predniSONE 5 mg tablet predniSONE 5 mg tablet 2020-12-14 Yes Alayna Simpson Unknown Unknown acetaminophen 500 mg tablet acetaminophen 500 mg tablet 2020-12-14 Yes Alayna Miramonteson Unknown Unknown psyllium husk 0.4 gram capsule psyllium husk 0.4 gram capsule 20 21-12-13 2020-12-24 Yes Alayna Simpson Unknown Unknown Daily Fiber (psyllium-sucrose) 3 gram/7 gram oral powd er Daily Fiber (psyllium- sucrose) 3 gram/7 gram oral powder 2020-12-14 Yes Alanya Simpson Unknown Unknown Colace 100 mg capsule Colace 100 mg capsule 2020-12-14 Yes Jacques Simpson Unknown Unknown bisacodyL 10 mg rectal suppository bisacodyL 10 mg rectal cuba ppository 2020-12-14 2020-12-14 Yes Alayna Simpson Unknown Unknown sucralfate 100 mg/mL oral suspension sucralfate 100 mg/mL or al suspension 2021-01-19 Yes Alayna Simpson Unknown Unknown Vital Signs Vital Name Observation Time Observation Value Comments SYSTOLIC mm[Hg] 2021-03-04 18:21:21 116 mm[Hg] mm[Hg] Method: Si t DIASTOLIC mm[Hg] 2021-03-04 18:21:21 72 mm[Hg] mm[Hg] Method: Si t PULSE 2021-03-04 18:21:21 80 /min /min RESP RATE 2021-03-04 18:21:21 18 /min /min TEMP 2021-03-04 18:21:21 97.9 [degF] Procedures This patient has no known procedures. Results This patient has no known results.
--- OUTSIDE RECORDS SUMMARY | 2021-03-06 07:53 | CCD ---
Author Author [facility] Organization [facility] Address Unknown Phone Unavailable Care Team Providers Care Health Care Social Worker Name Role Phone Alayna Simpson Unavailable PROBLEMS Type Condition ICD9-CM Code XTT10-QR Code Onset Dates Condition S tatus W/U Status Risk SNOMED Code Notes Problem Temporal arteritis M31.6 Active confirmed 4 96798551 Problem Chronic obstructive pulmonary disease, unspecified COPD ty pe J44.9 Active confirmed 25848460 Problem Type 1 diabetes mellitus with complication E10.8 Active confirmed 53924082 Problem Essential hypertension I10 Active confirmed 40406799 Problem Bipolar 1 disorder F31.9 Active confirmed 3 85097623 Problem Autonomic instability G90.9 Active confirmed 63855851 Problem Osteomyelitis of right foot, unspecified type M86. 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 Active confirmed 521075874 Problem PVD (peripheral vascular disease) I73.9 Active confirmed 067145947 Problem History of left below knee amputation Z89.512 Ac tive confirmed 977638957 Problem Benign prostatic hyperplasia with lower urinary tract symptoms N40.1 Active confirmed 912752596446710 Problem Chronic gastritis without bleeding, unspecified gastri tis type K29.50 Active confirmed 02579394 Problem Type 1 diabetes mellitus with foot ulcer E10.621 Active confirmed 926787844836490 Problem 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 Active confirmed 15029 7001 Problem Type 1 diabetes mellitus with other specified complication E10.69 Active confirmed 34244726 Problem 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 L97.519 Active confirmed Problem Amputation below knee S88.119A Active confirmed 244968671 Problem Acquired absence of left leg below knee Z89.512 Active confirmed 286671025096882 Problem Acquired absence of right leg below knee Z89.511 Active confirmed 770163327 Problem Wound dehiscence T81.30XA Active confirmed 2 24538667 Problem Adrenal insufficiency E27.40 Active confirmed 344670470 Problem Osteomyelitis, lower leg M86.9 Active confirmed 54072174 Problem Anemia of chronic disease D63.8 Active confirmed 273076724 Problem Cataract of both eyes, unspecified cataract type H 26.9 Active confirmed 58354862 Problem Below-knee amputation of right lower extremity S88 .111A Active confirmed 468183784 Problem Pancytopenia D61.818 Active confirmed 714073 005 Problem Osteomyelitis of other site, unspecified type M86. 9 Active confirmed 21492934 Problem Non-healing amputation site T87.89 Active confirmed 617691011 ALLERGIES No Known Allergies ENCOUNTERS from 1960 to 2021-03-02 Encounter Location Date Provider Diagnosis [facility] [address] [facility] [phone] [place] [address] 30 Jan, 2021 Alayna Simpson IMMUNIZATIONS Vaccine Route [...] School Language: Question Answer Notes Languages spoken: Vietnamese Temple: Question Answer Notes Temple 08 Bahai Alcohol Screening: Question Answer Notes Did you [...] for 90 days 0 6 Jul, 2020 Unknown Gabapentin 300 MG 1 cap Orally [...] a day for 30 day(s) Unknown PROCEDURES No Information RESULTS No Results REASON FOR VISIT refills MEDICAL (GENERAL) HISTORY Type Description Date Medical [...] History right leg amputation 03/04/2020 Hospitalization History [facility] 10/2016 Hospitalization History hypoglycemia 12/02/2016-12/12/19 17 Hospitalization History autonomic instability 04/02/201707/2017 Hospitalization History hypergycemia 08/04/2019- 0 Hospitalization History leg amputation 03/04/2020 Hospitalization History [facility] 05/04/2020- 1 Hospitalization History [facility] 08/15/2020 Hospitalization History amputation site infection 08/04- 021 Hospitalization History Low Blood Sugar 12/19/2020 Goals Section No Information Health Concerns No Information MEDICAL EQUIPMENT No Information MENTAL STATUS No Information FUNCTIONAL STATUS No Information ASSESSMENTS No Information PLAN OF TREATMENT Next Appt Details Provider Name:Inocente Ledesma, 10:15:00 AM, [address], , [place], [address], Provider Name:Alayna Simpson, 2021-03-22 10:30:00 AM, [address], , [place], [address], Insurance Providers Payer Name Payer Address Payer Phone Insured Name Patient Relati onship to Insured Coverage Start Date Coverage End Date MEDICARE COMPLETE [employer] [address] [address] [facility] [id number] SEBASTIEN GARCIA self MEDICAID [facility] [address] [facility] [id number] SEBASTIEN GARCIA self
--- OUTSIDE RECORDS SUMMARY | 2021-03-06 07:53 | CCD ---
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 of as pirin Diagnosis Active Palma Matos buttermilk drier operator (current) use of anticoagulants buttermilk drier operator (c urrent) use of anticoagulants Diagnosis Active Palma castealn Acquired absence of right leg below knee [...] Endo/Kody anti-coagulation therapy Endo/Kody Active 2020-12-14 11:10:00 Charlette Wolfe Integument surgical wound present Integument Active [...] 3 gram/7 gram oral powder 2020-12-14 Yes Alayna Simpson Unknown Unknown Colace 100 mg capsule Colace 100 mg capsule 2020-12-14 Yes Jacques Simpson Unknown Unknown bisacodyL 10 mg rectal suppository bisacodyL 10 mg rectal cuba ppository 2020-12-14 2020-12-14 Yes Alayna Simpson Unknown Unknown sucralfate 100 mg/mL oral suspension sucralfate 100 mg/mL or al suspension 2021-01-19 Yes Alayna Simpson Unknown Unknown Vital Signs Vital Name Observation Time Observation Value Comments SYSTOLIC mm[Hg] 2021-02-28 18:21:17 132 mm[Hg] mm[Hg] Method: Si t DIASTOLIC mm[Hg] 2021-02-28 18:21:17 68 mm[Hg] mm[Hg] Method: Si t PULSE 2021-02-28 18:21:17 92 /min /min RESP RATE 2021-02-28 18:21:17 18 /min /min TEMP 2021-02-28 18:21:17 97.8 [degF] Procedures This patient has no known procedures. Results This patient has no known results.
--- OUTSIDE RECORDS SUMMARY | 2021-03-06 07:55 | CCD ---
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 Name Role Phone DIDIER KEVIN MD Unavailable Unavailable DIDIER KEVIN MD Unavailable Unavailable DIDIER KEVIN MD Unavailable Unavailable Ama SIDDIQUI MD Unavailable Unavailable Ama SIDDIQUI MD Unavailable Unavailable Ama SIDDIQUI MD Unavailable Unavailable Ama SIDDIQUI MD Unavailable Unavailable Ama SIDDIQUI MD Unavailable Unavailable Ama SIDDIQUI MD Unavailable Unavailable Ama SIDDIQUI MD Unavailable Unavailable Shelby Simpson MD Unavailable Unavailable Shelby Simpson MD Unavailable Unavailable Shelby Simpson MD Unavailable Unavailable Shelby Simpson MD Unavailable Unavailable Shelby Simpson MD Unavailable Unavailable Shelby Simpson MD Unavailable Unavailable Shelby Simpson MD Unavailable Unavailable Shelby Simpson MD Unavailable Unavailable Shelby Simpson MD Unavailable Unavailable Shelby Simpson MD Unavailable Unavailable Shelby Simpson MD Unavailable Unavailable Shelby Simpson MD Unavailable Unavailable Shelby Simpson MD Unavailable Unavailable Shelby Simpson MD Unavailable Unavailable Shelby Simpson MD Unavailable Unavailable Shelby Simpson MD Unavailable Unavailable Shelby Simpson MD Unavailable Unavailable Shelby Simpson MD Unavailable Unavailable Shelby Simpson MD Unavailable Unavailable Shelby Simpson MD Unavailable Unavailable Shelby Simpson MD Unavailable Unavailable Shelby Simpson MD Unavailable Unavailable Shelby Simpson MD Unavailable Unavailable Shelby Simpson MD Unavailable Unavailable Shelby Simpson MD Unavailable Unavailable Shelby Simpson MD Unavailable Unavailable Shelby Simpson MD Unavailable Unavailable Shelby Simpson MD Unavailable Unavailable Shelby Simpson MD Unavailable Unavailable Shelby Simpson MD Unavailable Unavailable Shelby Simpson MD Unavailable Unavailable Shelby Simpson MD Unavailable Unavailable Shelby Simpson MD Unavailable Unavailable Shelby Simpson MD Unavailable Unavailable Shelby Simpson MD Unavailable Unavailable Shelby Simpson MD Unavailable Unavailable MAJAK, R MOOSE DPM Unavailable [...] Unavailable Unavailable Shelby Kuhn MD Unavailable Unavailable JosietranHanna stephens MD Unavailable Unavailable Hanna Boss MD Unavailable Unavailable JosietranHanna stephens MD Unavailable Unavailable Hanna Boss MD Unavailable Unavailable JosietranHanna stephens MD Unavailable Unavailable Hanna Boss MD Unavailable Unavailable Hanna Boss MD Unavailable Unavailable Hanna Boss MD Unavailable Unavailable Hanna Boss MD Unavailable Unavailable Hanna Boss MD Unavailable Unavailable Hanna Boss MD Unavailable Unavailable Hanna Boss MD Unavailable Unavailable Hanna Boss MD Unavailable Unavailable Hanna Boss MD Unavailable Unavailable JosietranHanna stephens MD Unavailable Unavailable CedugotranHanna stephens MD Unavailable Unavailable Ama Malagon Unavailable Unavailable Wojciech, L Manuel MD Unavailable Unavailable Wojciech, L Manuel MD Unavailable Unavailable Adkins, L Manuel MD Unavailable Unavailable Adkins, L Manuel MD Unavailable Unavailable Wojciech, L Manuel MD Unavailable Unavailable Wojciech, L Manuel MD Unavailable Unavailable Wojciech, L Manuel MD Unavailable Unavailable Adkins, L Manuel MD Unavailable Unavailable Adkins, L Manuel MD Unavailable Unavailable Adkins, L Manuel MD Unavailable Unavailable Adkins, L Manuel MD Unavailable Unavailable Wojciech, L Manuel MD Unavailable Unavailable Wojciech, L Manuel MD Unavailable Unavailable Adkins, L Manuel MD Unavailable Unavailable Adkins, L Manuel MD Unavailable Unavailable Wojciech, L Manuel MD Unavailable Unavailable Owjciech, L Manuel MD Unavailable Unavailable Wojciech, L Manuel MD Unavailable Unavailable Wojciech, L Manuel MD Unavailable Unavailable Wojciech, L Manuel MD Unavailable Unavailable Adkins, L Manuel MD Unavailable Unavailable Adkins, L Manuel MD Unavailable Unavailable Adkins, L Manuel MD Unavailable Unavailable Wojciech, L Manuel MD Unavailable Unavailable Wojciech, L Manuel MD Unavailable Unavailable Adkins, Jarvis Manuel MD Unavailable Unavailable Wojciech, L Manuel MD Unavailable Unavailable Adkins, L Manuel MD Unavailable Unavailable Adkins, L Manuel MD Unavailable Unavailable Adkins, L Manuel MD Unavailable Unavailable Adkins, L Manuel MD Unavailable Unavailable Adkins, Jarvis Manuel MD Unavailable Unavailable Adkins, L Manuel MD Unavailable Unavailable Adkins, L Manuel MD Unavailable Unavailable Wojciech, L Manuel MD Unavailable Unavailable Adkins, L Manuel MD Unavailable Unavailable Wojciech, L Manuel MD Unavailable Unavailable Adkins, L Manuel MD Unavailable Unavailable Wojciech, Jarvis Manuel MD Unavailable Unavailable Wojciech, L Manuel MD Unavailable Unavailable Adkins, L Manuel MD Unavailable Unavailable Adkins, L Manuel MD Unavailable Unavailable Wojciech, L Manuel MD Unavailable Unavailable Wojciech, L Manuel MD Unavailable Unavailable Adkins, L Manuel MD Unavailable Unavailable Adkins, L Manuel MD Unavailable Unavailable Wojciech, L Manuel MD Unavailable Unavailable Wojciech, L Manuel MD Unavailable Unavailable Dumont, L [...] RPA Unavailable Unavailable Ama Malagon PA Unavailable [phone] Ama Malagon PA Unavailable [phone] Ama Malagonrick PA Unavailable [phone] Ama Malagon PA Unavailable [phone] Ama Malagon PA Unavailable [phone] Ama Malagon Jose PA Unavailable [phone] Ama Malagon Jose PA Unavailable [phone] Ama Malagon PA Unavailable [phone] Ama Malagon PA Unavailable [phone] Ama Malagon Jose PA Unavailable [phone] Ama Malagon Jose PA Unavailable [phone] Ama Malagon PA Unavailable [phone] Ama Malagonrick KATERYNA Unavailable [phone] STILLERMAN, EDUARDO MD Unavailable Unavailable STILLERMAN, EDUARDO MD Unavailable Unavailable STILLERMAN, EDUARDO MD Unavailable Unavailable STILLERMAN, EDUARDO MD Unavailable Unavailable STILLERMAN, EDUARDO MD Unavailable Unavailable STILLERMAN, EDUARDO MD Unavailable Unavailable STILLERMAN, EDUARDO MD Unavailable Unavailable STILLERMAN, EDUARDO MD Unavailable Unavailable STILLERMAN, EDUARDO MD Unavailable Unavailable STILLERMAN, EDUARDO MD Unavailable Unavailable STILLERMAN, EDUARDO MD Unavailable Unavailable STILLERMAN, EDUARDO MD Unavailable Unavailable STILLERMAN, EDUARDO MD Unavailable Unavailable STILLERMAN, EDUARDO MD Unavailable Unavailable STILLERMAN, EDUARDO MD Unavailable Unavailable STILLERMAN, EDUARDO MD Unavailable Unavailable STILLERMAN, EDUARDO MD Unavailable Unavailable STILLERMAN, EDUARDO MD Unavailable Unavailable STILLERMAN, EDUARDO MD Unavailable Unavailable STILLERMAN, EDUARDO MD Unavailable Unavailable STILLERMAN, EDUARDO MD Unavailable Unavailable STILLERMAN, EDUARDO MD Unavailable Unavailable STILLERMAN, EDUARDO MD Unavailable Unavailable STILLERMAN, EDUARDO MD Unavailable Unavailable STILLERMAN, EDUARDO MD Unavailable Unavailable STILLERMAN, EDUARDO MD Unavailable Unavailable STILLERMAN, EDUARDO MD Unavailable Unavailable STILLERMAN, EDUARDO MD Unavailable Unavailable STILLERMAN, EDUARDO MD Unavailable Unavailable STILLERMAN, EDUARDO MD Unavailable Unavailable STILLERMAN, EDUARDO MD Unavailable Unavailable STILLERMAN, EDUARDO MD Unavailable Unavailable Re-disclosure Warning The records [...] NOT sufficient authorization for further disc losure. Allergies and Adverse Reactions Type Description Substance Reaction Status Data Source(s ) No Known Allergies NO KNOWN MEDICATION ALLERGIES NO KNOWN MEDICA TION ALLERGIES NDOC ([facility]) Family History Family Member Name Family Member Gender Family Member Status Date o f Status Description Data Source(s) Unknown Unknown Problem MEDENT ([facility], ) father Encounters Encounter Providers Location Date Indications Data Source(s ) (MARIAM NP120) New Patient 120 Min [address] [place] [address] 03/02/2021 12:00:00 AM EST eCW1 ([facility]) Unknown [address] [facility] [address] 03/01/2021 12:00:00 AM EST eCW1 ([facility]) Unknown [address] [facility] [address] 02/21/2021 12:00:00 AM EST eCW1 ([facility]) Outpatient [address] [facility] [address] 02/18/2021 12:00:00 AM EST eCW1 ([facility]) Unknown [address] [facility] [address] 02/14/2021 12:00:00 AM EST eCW1 ([facility]) Office Visit Attender: KAREN Mcnair/Анна/Indra/Diana indl 02/03/2021 08:45:00 AM EDT MEDENT ([facility], ) Unknown [address] [facility] [id number] 01/27/2021 12:00:00 AM EDT eCW1 ([facility]) Outpatient Attender: Alex Kuhn MD CPSCAORT-CPSCAEND 01/24 12:59:00 PM EDT - 01/24/2021 01:00:00 PM EDT E10.65 [facility] E10.65 Patient discharged. Outpatient [address] [facility], [facility] [address] 01/21/2021 12:00:00 AM EDT eCW1 ([facility]) Unknown [address] [facility] [address] 01/07/2021 12:00:00 AM EDT eCW1 ([facility]) Office Visit Attender: KAREN Mcnair/Анна/Indra/Re indl 01/06/2021 11:45:00 AM EDT MEDENT ([facility] Unknown [address] [facility] [address] 12/31/2020 12:00:00 AM EDT eCW1 ([facility]) (TCM) Transition of Care Visit [address] [place] [address] 12/23/2020 12:00:00 AM EDT [facility]CW1 [facility] Unknown [address] [facility] [place] [address] 12/22/2020 12:00:00 AM EDT eCW1 ([facility]) Office Visit Attender: KAREN Mcnair/Анна/Indra/Re indl 12/17/2020 01:00:00 PM EDT MEDENT ([facility]) Outpatient [address] [facility] [address] 12/16/2020 12:00:00 AM EDT eCW1 ([facility]) O Attender: Alayna Simpson MDConsultant: EDUARDO CHAU MD 12/14/2020 12:00:00 AM EDT NDOC ([facility]) Patient admitted. Unknown [address] [facility] [address] 12/14/2020 12:00:00 AM EDT eCW1 ([facility]) Outpatient Attender: Manuel Mcnair/Preston/Indra/ Reindl 11/11/2020 08:30:00 AM EDT MEDENT ([facility]) Outpatient Attender: MATT Mcnair/Preston/Indra/Reindl 11/01/2020 02:30:00 PM EDT MEDENT ([facility]) Unknown [address] [facility] [address] 10/20/2020 12:00:00 AM EDT eCW1 ([facility]) Outpatient Attender: Jose GLEASONttender: Maurisio AVENDAÑO CPSCAORT-CPSCAEND 10/11/2020 10:38:00 AM EDT - 10/11/2020 10:39:00 AM ED T E10.65 [facility] E10.65 Patient discharged. Unknown [address] [facility] [address] 09/16/2020 12:00:00 AM EDT eCW1 ([facility]) Unknown [address] [facility] [address] 09/16/2020 12:00:00 AM EDT eCW1 ([facility]) Office Visit, Est Pt., Level 3 FC [address] [place] [address] 08/24/2020 12:00:00 AM EDT eCW1 ([facility]) Unknown [address] [facility] [address] 08/17/2020 12:00:00 AM EDT eCW1 ([facility]) Unknown [address] [facility] [address] 08/17/2020 12:00:00 AM EDT eCW1 ([facility]) Outpatient Attender: Kathy Mcnair/Анна/Indra/ Reindl 08/12/2020 11:00:00 AM EDT MEDENT ([facility] Unknown [address] [facility] [address] 08/05/2020 12:00:00 AM EDT eCW1 ([facility]) Outpatient [address] [facility] [address] 07/27/2020 12:00:00 AM EDT eCW1 ([facility]) Unknown [address] [facility] [address] 07/27/2020 12:00:00 AM EDT eCW1 ([facility]) Outpatient Attender: Alex Kuhn MD CPSCAORT-CPSCAEND 07/09 01:20:00 PM EDT - 07/09/2020 01:21:00 PM EDT E10.65 [facility] E10.65 Patient discharged. Unknown [address] [facility] [address] 07/09/2020 12:00:00 AM EDT eCW1 ([facility]) Outpatient Attender: Kathy Mcnair/Анна/Indra/ Reindl 07/08/2020 11:45:00 AM EDT MEDENT ([facility] Outpatient [address] [facility] [address] 07/06/2020 12:00:00 AM EDT [facility]CW1 [facility] Unknown [address] [facility] [address] 07/02/2020 12:00:00 AM EDT [facility]CW1 [facility]) Unknown [address] [facility] [address] 06/24/2020 12:00:00 AM EDT eCW1 ([facility]) Unknown [address] [facility] [address] 06/09/2020 12:00:00 AM EST eCW1 ([facility]) Outpatient Attender: Kathy Mcnair/Анна/Indra/ Reindl 06/07/2020 12:00:00 PM EST MEDENT ([facility]) Office Visit Attender: Florencia Dumont RPA Xu/Preston/Indra/R eindl 05/27/2020 09:30:00 AM EST MEDENT ([facility]) Unknown [address] [facility] [address] 05/20/2020 12:00:00 AM EST eCW1 ([facility]) (TCM) Transition of Care Visit [address] [place] [address] 05/13/2020 12:00:00 AM EST eCW1 ([facility]) Office Visit Attender: Florencia Dumont RPA Xu/Preston/Indra/R eindl 05/12/2020 01:00:00 PM EST MEDENT ([facility]) Unknown [address] [facility] [place] [address] 05/10/2020 12:00:00 AM EST eCW1 ([facility]) Unknown [address] [facility] [address] 05/10/2020 12:00:00 AM EST eCW1 ([facility]) Unknown [address] [facility] [address] 05/05/2020 12:00:00 AM EST [facility]CW1 [facility]) TeleMedicine Phone E/M by Phys 11-20 Min [address] [place] [address] 05/05/2020 12:00:00 AM EST eCW1 ([facility]) Unknown [address] [facility] [address] 05/05/2020 12:00:00 AM EST eCW1 [facility] Unknown [address] [facility] [place] [address] 04/30/2020 12:00:00 AM EST eCW1 [facility]) (TCM) Transition of Care Visit [address] [place] [address] 04/29/2020 12:00:00 AM EST eCW1 ([facility]) Unknown [address] [facility] [place] [address] 04/29/2020 12:00:00 AM EST eCW1 ([facility]) Unknown [address] [facility] [address] 04/28/2020 12:00:00 AM EST eCW1 ([facility]) Unknown [address] [facility] [address] 04/26/2020 12:00:00 AM EST eCW1 ([facility]) Unknown [address] [facility] [address] 04/23/2020 12:00:00 AM EST eCW1 ([facility]) Unknown [address] [facility] [address] 04/22/2020 12:00:00 AM EST eCW1 ([facility]) Unknown [address] [facility] [address] 04/21/2020 12:00:00 AM EST eCW1 ([facility]) Office Visit Attender: Florencia Mcnair/Preston/Indra/R eindl 04/12/2020 10:45:00 AM EST MEDENT ([facility]) Outpatient [address] [facility] [address] 04/06/2020 12:00:00 AM EST eCW1 ([facility]) Office Visit Attender: Florencia Mcnair/Preston/Indra/R eindl 04/05/2020 08:15:00 AM EST MEDENT ([facility]) Unknown [address] [facility] [address] 03/31/2020 12:00:00 AM EST eCW1 ([facility]) Unknown [address] [facility] [address] 03/31/2020 12:00:00 AM EST eCW1 ([facility]) Unknown [address] [facility] [address] 03/29/2020 12:00:00 AM EST [facility]CW1 ([facility]) Unknown [address] [facility] [address] 03/24/2020 12:00:00 AM EST eCW1 ([facility]) Unknown [address] [facility] [address] 03/10/2020 12:00:00 AM EST eCW1 ([facility]) Outpatient Attender: Alex Kuhn MD CPSCAORT-CPSCAEND 03/02 02:32:00 PM EST - 03/02/2020 02:33:00 PM EST E10.65 [facility] E10.65 Patient discharged. Unknown [address] [place] [address] 03/01/2020 12:00:00 AM EST eCW1 ([facility]) Outpatient Attender: Kathy Mcnair/Анна/Indra/ Talon 02/23/2020 12:30:00 PM EST MEDENT ([facility]) ([id number]) For Template Wright [address] [place] [phone] 02/23/2020 12:00:00 AM EST eCW1 ([facility]) Unknown [address] [place] [address] 02/20/2020 12:00:00 AM EST eCW1 ([facility]) Office Visit, Est Pt., Level 2 FC [address] [place] [address] 02/19/2020 12:00:00 AM EST eCW1 ([facility]) Unknown [address] [place] [phone] 02/19/2020 12:00:00 AM EST eCW1 ([facility]) Office Visit Attender: MOOSE CHAPA [facility] Office 01/31 12:00:00 PM EST MEDENT ([facility] Unknown [address] [facility] [address] 02/18/2020 12:00:00 AM EST eCW1 ([facility]) Unknown [address] [facility] [address] 02/10/2020 12:00:00 AM EST eCW1 ([facility]) Outpatient [address] [facility] [address] 02/09/2020 12:00:00 AM EST eCW1 ([facility]) Unknown [address] [facility] [place] [address] 02/04/2020 12:00:00 AM EST eCW1 ([facility]) Office Visit Attender: MOOSE CHAPA [facility] Office 05/2019 01:45:00 PM EST MEDENT ([facility] Unknown [address] [facility] [address] 01/26/2020 12:00:00 AM EDT eCW1 ([facility]) Outpatient Attender: MOOSE CHAPA [facility] Office 01/01 02:30:00 PM EDT MEDENT ([facility] Outpatient Attender: Florencia Mcnair/Анна/Indra/Zeeshan mcdowell 01/20/2020 11:30:00 AM EDT MEDENT ([facility] Outpatient [address] [facility] [address] 01/19/2020 12:00:00 AM EDT eCW1 ([facility]) ([id number]) For [employer] [address] [place] [phone] 01/09/2020 12:00:00 AM EDT eCW1 ([facility]) Immunizations Vaccine Date Status Description Data Source(s) COVID-19 VACC,MRNA(MODERNA)/PF 09/06/2020 12:00:00 AM EDT completed [facility] COVID-19 VACCINE Moderna 09/06/2020 12:00:00 AM EDT completed [facility] Vaccine Series Complete: YESThis Data wa s Submitted to [facility] Via [employer]. COVID-19 VACC,MRNA(MODERNA)/PF 08/13/2020 12:00:00 AM EDT completed [facility] COVID-19 VACCINE Moderna 08/13/2020 12:00:00 AM EDT completed [facility] Vaccine Series Complete: NOThis Data was Submitted to [facility] Via [employer]. Medications Medication Brand Name Start Date Product Form Dose Route Admi nistrative Instructions Pharmacy Instructions Status Indications Reaction Description Data Source(s) Amlodipine 5 MG Oral Tablet amLODIPine Besylate 5 MG amLODIP ine Besylate 5 MG 02/08/2021 12:00:00 AM EST 1.0 {tablet} active amLODIPine Besylate 5 MG eCW1 ([facility]) Amlodipine 5 MG Oral Tablet amLODIPine Besylate 5 MG amLODIP ine Besylate 5 MG 02/08/2021 12:00:00 AM EST 1.0 {tablet} active amLODIPine Besylate 5 MG eCW1 ([facility]) Amlodipine 5 MG Oral Tablet amLODIPine Besylate 5 MG amLODIP ine Besylate 5 MG 02/08/2021 12:00:00 AM EST 1.0 {tablet} active amLODIPine Besylate 5 MG eCW1 ([facility]) Amlodipine 5 MG Oral Tablet amLODIPine Besylate 5 MG amLODIP ine Besylate 5 MG 02/08/2021 12:00:00 AM EST 1.0 {tablet} active amLODIPine Besylate 5 MG eCW1 ([facility]) Amlodipine 5 MG Oral Tablet amLODIPine Besylate 5 MG amLODIP ine Besylate 5 MG 02/08/2021 12:00:00 AM EST 1.0 {tablet} active amLODIPine Besylate 5 MG eCW1 ([facility]) Bisacodyl 10 MG Rectal Suppository Bisacodyl 10 MG 12/14/2020 12:00 :00 AM EDT 1.0 {suppository_as_needed} active Bisa codyl 10 MG eCW1 ([facility]) Docusate Sodium 100 MG Oral Capsule [Colace] Colace 100 MG C olace 100 MG 12/14/2020 12:00:00 AM EDT 1.0 {capsule_as_needed} suspended Colace 100 MG eCW1 ([facility]) Bisacodyl 10 MG Rectal Suppository Bisacodyl 10 MG 12/14/2020 12:00 :00 AM EDT 1.0 {suppository_as_needed} suspended Bi sacodyl 10 MG eCW1 ([facility]) Bisacodyl 10 MG Rectal Suppository Bisacodyl 10 MG 12/14/2020 12:00 :00 AM EDT 1.0 {suppository_as_needed} suspended Bi sacodyl 10 MG eCW1 ([facility]) Bisacodyl 10 MG Rectal Suppository Bisacodyl 10 MG 12/14/2020 12:00 :00 AM EDT 1.0 {suppository_as_needed} suspended Bi sacodyl 10 MG eCW1 ([facility]) Docusate Sodium 100 MG Oral Capsule [Colace] Colace 100 MG C olace 100 MG 12/14/2020 12:00:00 AM EDT 1.0 {capsule_as_needed} active Colace 100 MG eCW1 ([facility]) Docusate Sodium 100 MG Oral Capsule [Colace] Colace 100 MG C olace 100 MG 12/14/2020 12:00:00 AM EDT 1.0 {capsule_as_needed} suspended Colace 100 MG eCW1 ([facility]) Bisacodyl 10 MG Rectal Suppository Bisacodyl 10 MG 12/14/2020 12:00 :00 AM EDT 1.0 {suppository_as_needed} suspended Bi sacodyl 10 MG eCW1 ([facility]) Bisacodyl 10 MG Rectal Suppository Bisacodyl 10 MG 12/14/2020 12:00 :00 AM EDT 1.0 {suppository_as_needed} suspended Bi sacodyl 10 MG eCW1 ([facility]) Bisacodyl 10 MG Rectal Suppository Bisacodyl 10 MG 12/14/2020 12:00 :00 AM EDT 1.0 {suppository_as_needed} suspended Bi sacodyl 10 MG eCW1 ([facility]) Docusate Sodium 100 MG Oral Capsule [Colace] Colace 100 MG C olace 100 MG 12/14/2020 12:00:00 AM EDT 1.0 {capsule_as_needed} suspended Colace 100 MG eCW1 ([facility]) Docusate Sodium 100 MG Oral Capsule [Colace] Colace 100 MG C olace 100 MG 12/14/2020 12:00:00 AM EDT 1.0 {capsule_as_needed} suspended Colace 100 MG eCW1 ([facility]) Docusate Sodium 100 MG Oral Capsule [Colace] Colace 100 MG C olace 100 MG 12/14/2020 12:00:00 AM EDT 1.0 {capsule_as_needed} suspended Colace 100 MG eCW1 ([facility]) Docusate Sodium 100 MG Oral Capsule [Colace] Colace 100 MG C olace 100 MG 12/14/2020 12:00:00 AM EDT 1.0 {capsule_as_needed} suspended Colace 100 MG eCW1 ([facility]) Bisacodyl 10 MG Rectal Suppository Bisacodyl 10 MG 12/14/2020 12:00 :00 AM EDT 1.0 {suppository_as_needed} suspended Bi sacodyl 10 MG eCW1 ([facility]) Docusate Sodium 100 MG Oral Capsule [Colace] Colace 100 MG C olace 100 MG 12/14/2020 12:00:00 AM EDT 1.0 {capsule_as_needed} suspended Colace 100 MG eCW1 ([facility]) Docusate Sodium 100 MG Oral Capsule [Colace] Colace 100 MG C olace 100 MG 12/14/2020 12:00:00 AM EDT 1.0 {capsule_as_needed} suspended Colace 100 MG eCW1 ([facility]) Bisacodyl 10 MG Rectal Suppository Bisacodyl 10 MG 12/14/2020 12:00 :00 AM EDT 1.0 {suppository_as_needed} suspended Bi sacodyl 10 MG eCW1 ([facility]) Ketoconazole 20 MG/ML Topical Cream Ketoconazole 2 % Ketocon azole 2 % 09/16/2020 12:00:00 AM EDT suspended Keto conazole 2 % eCW1 ([facility]) Ketoconazole 20 MG/ML Topical Cream Ketoconazole 2 % Ketocon azole 2 % 09/16/2020 12:00:00 AM EDT active Ketocon azole 2 % eCW1 ([facility]) Ketoconazole 20 MG/ML Topical Cream Ketoconazole 2 % Ketocon azole 2 % 09/16/2020 12:00:00 AM EDT active Ketocon azole 2 % eCW1 ([facility]) Ketoconazole 20 MG/ML Topical Cream Ketoconazole 2 % Ketocon azole 2 % 09/16/2020 12:00:00 AM EDT suspended Keto conazole 2 % eCW1 ([facility]) Ketoconazole 20 MG/ML Topical Cream Ketoconazole 2 % Ketocon azole 2 % 09/16/2020 12:00:00 AM EDT suspended Keto conazole 2 % eCW1 ([facility]) Ketoconazole 20 MG/ML Topical Cream Ketoconazole 2 % Ketocon azole 2 % 09/16/2020 12:00:00 AM EDT suspended Keto conazole 2 % eCW1 ([facility]) Ketoconazole 20 MG/ML Topical Cream Ketoconazole 2 % Ketocon azole 2 % 09/16/2020 12:00:00 AM EDT suspended Keto conazole 2 % eCW1 ([facility]) Ketoconazole 20 MG/ML Topical Cream Ketoconazole 2 % Ketocon azole 2 % 09/16/2020 12:00:00 AM EDT suspended Keto conazole 2 % eCW1 ([facility]) Ketoconazole 20 MG/ML Topical Cream Ketoconazole 2 % Ketocon azole 2 % 09/16/2020 12:00:00 AM EDT active Ketocon azole 2 % eCW1 ([facility]) Ketoconazole 20 MG/ML Topical Cream Ketoconazole 2 % Ketocon azole 2 % 09/16/2020 12:00:00 AM EDT active Ketocon azole 2 % eCW1 ([facility]) Ketoconazole 20 MG/ML Topical Cream Ketoconazole 2 % Ketocon azole 2 % 09/16/2020 12:00:00 AM EDT suspended Keto conazole 2 % eCW1 ([facility]) Ketoconazole 20 MG/ML Topical Cream Ketoconazole 2 % Ketocon azole 2 % 09/16/2020 12:00:00 AM EDT suspended Keto conazole 2 % eCW1 ([facility]) Prednisone 1 MG Oral Tablet predniSONE 1 MG predniSONE 1 MG 07/27/2020 12:00:00 AM EDT active predniSONE 1 MG e CW1 ([facility]) Prednisone 1 MG Oral Tablet predniSONE 1 MG predniSONE 1 MG 07/27/2020 12:00:00 AM EDT active predniSONE 1 MG e CW1 ([facility]) Prednisone 1 MG Oral Tablet PredniSONE 1 MG PredniSONE 1 MG 07/27/2020 12:00:00 AM EDT active PredniSONE 1 MG e CW1 ([facility]) Prednisone 1 MG Oral Tablet predniSONE 1 MG predniSONE 1 MG 07/27/2020 12:00:00 AM EDT active predniSONE 1 MG e CW1 ([facility]) Prednisone 1 MG Oral Tablet predniSONE 1 MG predniSONE 1 MG 07/27/2020 12:00:00 AM EDT active predniSONE 1 MG e CW1 ([facility]) Prednisone 1 MG Oral Tablet PredniSONE 1 MG PredniSONE 1 MG 07/27/2020 12:00:00 AM EDT active PredniSONE 1 MG e CW1 ([facility]) Prednisone 1 MG Oral Tablet predniSONE 1 MG predniSONE 1 MG 07/27/2020 12:00:00 AM EDT active predniSONE 1 MG e CW1 ([facility]) Prednisone 1 MG Oral Tablet predniSONE 1 MG predniSONE 1 MG 07/27/2020 12:00:00 AM EDT active predniSONE 1 MG e CW1 ([facility]) Prednisone 1 MG Oral Tablet PredniSONE 1 MG PredniSONE 1 MG 07/27/2020 12:00:00 AM EDT active PredniSONE 1 MG e CW1 ([facility]) Prednisone 1 MG Oral Tablet predniSONE 1 MG predniSONE 1 MG 07/27/2020 12:00:00 AM EDT active predniSONE 1 MG e CW1 ([facility]) Prednisone 1 MG Oral Tablet PredniSONE 1 MG PredniSONE 1 MG 07/27/2020 12:00:00 AM EDT active PredniSONE 1 MG e CW1 ([facility]) Prednisone 1 MG Oral Tablet predniSONE 1 MG predniSONE 1 MG 07/27/2020 12:00:00 AM EDT active predniSONE 1 MG e CW1 ([facility]) Prednisone 1 MG Oral Tablet predniSONE 1 MG predniSONE 1 MG 07/27/2020 12:00:00 AM EDT active predniSONE 1 MG e CW1 ([facility]) Prednisone 1 MG Oral Tablet predniSONE 1 MG predniSONE 1 MG 07/27/2020 12:00:00 AM EDT active predniSONE 1 MG e CW1 ([facility]) Prednisone 1 MG Oral Tablet predniSONE 1 MG predniSONE 1 MG 07/27/2020 12:00:00 AM EDT active predniSONE 1 MG e CW1 ([facility]) Prednisone 1 MG Oral Tablet PredniSONE 1 MG PredniSONE 1 MG 07/27/2020 12:00:00 AM EDT active PredniSONE 1 MG e CW1 ([facility]) Prednisone 1 MG Oral Tablet PredniSONE 1 MG PredniSONE 1 MG 07/27/2020 12:00:00 AM EDT active PredniSONE 1 MG e CW1 ([facility]) Prednisone 1 MG Oral Tablet predniSONE 1 MG predniSONE 1 MG 07/27/2020 12:00:00 AM EDT active predniSONE 1 MG e CW1 ([facility]) aripiprazole 5 MG Oral Tablet Aripiprazole 5 MG Aripiprazole 5 MG 07/06/2020 12:00:00 AM EDT 1.0 {tablet} active Ar ipiprazole 5 MG eCW1 ([facility]) aripiprazole 5 MG Oral Tablet ARIPiprazole 5 MG ARIPiprazole 5 MG 07/06/2020 12:00:00 AM EDT 1.0 {tablet} active AR IPiprazole 5 MG eCW1 ([facility]) aripiprazole 5 MG Oral Tablet ARIPiprazole 5 MG ARIPiprazole 5 MG 07/06/2020 12:00:00 AM EDT 1.0 {tablet} active AR IPiprazole 5 MG eCW1 ([facility]) aripiprazole 5 MG Oral Tablet Aripiprazole 5 MG Aripiprazole 5 MG 07/06/2020 12:00:00 AM EDT 1.0 {tablet} active Ar ipiprazole 5 MG eCW1 ([facility]) aripiprazole 5 MG Oral Tablet Aripiprazole 5 MG Aripiprazole 5 MG 07/06/2020 12:00:00 AM EDT 1.0 {tablet} active Ar ipiprazole 5 MG eCW1 ([facility]) aripiprazole 5 MG Oral Tablet ARIPiprazole 5 MG ARIPiprazole 5 MG 07/06/2020 12:00:00 AM EDT 1.0 {tablet} active AR IPiprazole 5 MG eCW1 ([facility]) aripiprazole 5 MG Oral Tablet ARIPiprazole 5 MG ARIPiprazole 5 MG 07/06/2020 12:00:00 AM EDT 1.0 {tablet} active AR IPiprazole 5 MG eCW1 ([facility]) aripiprazole 5 MG Oral Tablet Aripiprazole 5 MG Aripiprazole 5 MG 07/06/2020 12:00:00 AM EDT 1.0 {tablet} active Ar ipiprazole 5 MG eCW1 ([facility]) aripiprazole 5 MG Oral Tablet ARIPiprazole 5 MG ARIPiprazole 5 MG 07/06/2020 12:00:00 AM EDT 1.0 {tablet} active AR IPiprazole 5 MG eCW1 ([facility]) aripiprazole 5 MG Oral Tablet ARIPiprazole 5 MG ARIPiprazole 5 MG 07/06/2020 12:00:00 AM EDT 1.0 {tablet} active AR IPiprazole 5 MG eCW1 ([facility]) aripiprazole 5 MG Oral Tablet Aripiprazole 5 MG Aripiprazole 5 MG 07/06/2020 12:00:00 AM EDT 1.0 {tablet} active Ar ipiprazole 5 MG eCW1 ([facility]) aripiprazole 5 MG Oral Tablet Aripiprazole 5 MG Aripiprazole 5 MG 07/06/2020 12:00:00 AM EDT 1.0 {tablet} active Ar ipiprazole 5 MG eCW1 ([facility]) aripiprazole 5 MG Oral Tablet ARIPiprazole 5 MG ARIPiprazole 5 MG 07/06/2020 12:00:00 AM EDT 1.0 {tablet} active AR IPiprazole 5 MG eCW1 ([facility]) aripiprazole 5 MG Oral Tablet Aripiprazole 5 MG Aripiprazole 5 MG 07/06/2020 12:00:00 AM EDT 1.0 {tablet} active Ar ipiprazole 5 MG eCW1 ([facility]) aripiprazole 5 MG Oral Tablet ARIPiprazole 5 MG ARIPiprazole 5 MG 07/06/2020 12:00:00 AM EDT 1.0 {tablet} active AR IPiprazole 5 MG eCW1 ([facility]) aripiprazole 5 MG Oral Tablet ARIPiprazole 5 MG ARIPiprazole 5 MG 07/06/2020 12:00:00 AM EDT 1.0 {tablet} active AR IPiprazole 5 MG eCW1 ([facility]) aripiprazole 5 MG Oral Tablet ARIPiprazole 5 MG ARIPiprazole 5 MG 07/06/2020 12:00:00 AM EDT 1.0 {tablet} active AR IPiprazole 5 MG eCW1 ([facility]) aripiprazole 5 MG Oral Tablet ARIPiprazole 5 MG ARIPiprazole 5 MG 07/06/2020 12:00:00 AM EDT 1.0 {tablet} active AR IPiprazole 5 MG eCW1 ([facility]) aripiprazole 5 MG Oral Tablet ARIPiprazole 5 MG ARIPiprazole 5 MG 07/06/2020 12:00:00 AM EDT 1.0 {tablet} active AR IPiprazole 5 MG eCW1 ([facility]) aripiprazole 5 MG Oral Tablet ARIPiprazole 5 MG ARIPiprazole 5 MG 07/06/2020 12:00:00 AM EDT 1.0 {tablet} active AR IPiprazole 5 MG eCW1 ([facility]) aripiprazole 5 MG Oral Tablet ARIPiprazole 5 MG ARIPiprazole 5 MG 07/06/2020 12:00:00 AM EDT 1.0 {tablet} active AR IPiprazole 5 MG eCW1 ([facility]) aripiprazole 5 MG Oral Tablet ARIPiprazole 5 MG ARIPiprazole 5 MG 07/06/2020 12:00:00 AM EDT 1.0 {tablet} active AR IPiprazole 5 MG eCW1 ([facility]) aripiprazole 5 MG Oral Tablet Aripiprazole 5 MG Aripiprazole 5 MG 07/06/2020 12:00:00 AM EDT 1.0 {tablet} active Ar ipiprazole 5 MG eCW1 ([facility]) aripiprazole 5 MG Oral Tablet Aripiprazole 5 MG Aripiprazole 5 MG 07/06/2020 12:00:00 AM EDT 1.0 {tablet} active Ar ipiprazole 5 MG eCW1 ([facility]) aripiprazole 5 MG Oral Tablet ARIPiprazole 5 MG ARIPiprazole 5 MG 07/06/2020 12:00:00 AM EDT 1.0 {tablet} active AR IPiprazole 5 MG eCW1 ([facility]) Cephalexin 500 MG Oral Capsule Cephalexin 05/27/2020 12:00:00 AM EST ORAL completed MEDENT ([facility]) Cephalexin 500 MG Oral Capsule [Keflex] Keflex 04/12/2020 12:00:0 0 AM EST ORAL completed MEDENT ([facility]) Misc. Devices - UNK 03/11/2020 12:00:00 AM EST active Misc. Devices - eCW1 ([facility]) Misc. Devices - UNK 03/11/2020 12:00:00 AM EST active Misc. Devices - eCW1 ([facility]) Misc. Devices - UNK 03/11/2020 12:00:00 AM EST active Misc. Devices - eCW1 ([facility]) Misc. Devices - UNK 03/11/2020 12:00:00 AM EST active Misc. Devices - eCW1 ([facility]) Misc. Devices - UNK 03/11/2020 12:00:00 AM EST active Misc. Devices - eCW1 ([facility]) Misc. Devices - UNK 03/11/2020 12:00:00 AM EST active Misc. Devices - eCW1 ([facility]) Misc. Devices - UNK 03/11/2020 12:00:00 AM EST active Misc. Devices - eCW1 ([facility]) Misc. Devices - UNK 03/11/2020 12:00:00 AM EST active Misc. Devices - eCW1 ([facility]) Misc. Devices - UNK 03/11/2020 12:00:00 AM EST active Misc. Devices - eCW1 ([facility]) Misc. Devices - UNK 03/11/2020 12:00:00 AM EST active Misc. Devices - eCW1 ([facility]) Misc. Devices - UNK 03/11/2020 12:00:00 AM EST active Misc. Devices - eCW1 ([facility]) Misc. Devices - UNK 03/11/2020 12:00:00 AM EST active Misc. Devices - eCW1 ([facility]) Misc. Devices - UNK 03/11/2020 12:00:00 AM EST active Misc. Devices - eCW1 ([facility]) Misc. Devices - UNK 03/11/2020 12:00:00 AM EST active Misc. Devices - eCW1 ([facility]) Misc. Devices - UNK 03/11/2020 12:00:00 AM EST active Misc. Devices - eCW1 ([facility]) Misc. Devices - UNK 03/11/2020 12:00:00 AM EST active Misc. Devices - eCW1 ([facility]) Misc. Devices - UNK 03/11/2020 12:00:00 AM EST active Misc. Devices - eCW1 ([facility]) Misc. Devices - UNK 03/11/2020 12:00:00 AM EST active Misc. Devices - eCW1 ([facility]) Misc. Devices - UNK 03/11/2020 12:00:00 AM EST active Misc. Devices - eCW1 ([facility]) Misc. Devices - UNK 03/11/2020 12:00:00 AM EST active Misc. Devices - eCW1 ([facility]) Wheelchair - Wheelchair - 02/24/2020 12:00:00 AM EST active Wheelchair - eCW1 ([facility]) Wheelchair - Wheelchair - 02/24/2020 12:00:00 AM EST active Wheelchair - eCW1 ([facility]) Wheelchair - Wheelchair - 02/24/2020 12:00:00 AM EST active Wheelchair - eCW1 ([facility]) Wheelchair - Wheelchair - 02/24/2020 12:00:00 AM EST active Wheelchair - eCW1 ([facility]) Wheelchair - Wheelchair - 02/24/2020 12:00:00 AM EST active Wheelchair - eCW1 ([facility]) Wheelchair - Wheelchair - 02/24/2020 12:00:00 AM EST active Wheelchair - eCW1 ([facility]) Wheelchair - Wheelchair - 02/24/2020 12:00:00 AM EST active Wheelchair - eCW1 ([facility]) Wheelchair - Wheelchair - 02/24/2020 12:00:00 AM EST active Wheelchair - eCW1 ([facility]) Wheelchair - Wheelchair - 02/24/2020 12:00:00 AM EST active Wheelchair - eCW1 ([facility]) Wheelchair - Wheelchair - 02/24/2020 12:00:00 AM EST active Wheelchair - eCW1 ([facility]) Wheelchair - Wheelchair - 02/24/2020 12:00:00 AM EST active Wheelchair - eCW1 ([facility]) Wheelchair - Wheelchair - 02/24/2020 12:00:00 AM EST active Wheelchair - eCW1 ([facility]) Wheelchair - Wheelchair - 02/24/2020 12:00:00 AM EST active Wheelchair - eCW1 ([facility]) Wheelchair - Wheelchair - 02/24/2020 12:00:00 AM EST active Wheelchair - eCW1 ([facility]) Wheelchair - Wheelchair - 02/24/2020 12:00:00 AM EST active Wheelchair - eCW1 ([facility]) Wheelchair - Wheelchair - 02/24/2020 12:00:00 AM EST active Wheelchair - eCW1 ([facility]) Wheelchair - Wheelchair - 02/24/2020 12:00:00 AM EST active Wheelchair - eCW1 ([facility]) Wheelchair - Wheelchair - 02/24/2020 12:00:00 AM EST active Wheelchair - eCW1 ([facility]) Wheelchair - Wheelchair - 02/24/2020 12:00:00 AM EST active Wheelchair - eCW1 ([facility]) Wheelchair - Wheelchair - 02/24/2020 12:00:00 AM EST active Wheelchair - eCW1 ([facility]) Wheelchair - Wheelchair - 02/24/2020 12:00:00 AM EST active Wheelchair - eCW1 ([facility]) Wheelchair - Wheelchair - 02/24/2020 12:00:00 AM EST active Wheelchair - eCW1 ([facility]) Wheelchair - Wheelchair - 02/24/2020 12:00:00 AM EST active Wheelchair - eCW1 ([facility]) Cephalexin 500 MG Oral Capsule Cephalexin 02/02/2020 12:00:00 AM EST ORAL active MEDENT ([facility] tramadol hydrochloride 50 MG Oral Tablet Tramadol HCL 02/02/2020 12:00:00 AM EST active MEDENT ([facility] Insurance Providers Payer name Policy type / Coverage type Policy ID Covered democrat ID Covered democrat's relationship to wright Policy Wright Plan Information MEDICARE [id number] SELF [id number] A [employer] RHONDA UNAVAILABLE SELF UNAVAILABLE MEDICARE PART A [id number] Patient [id number] [employer] RHONDA [id number] SELF [id number] PERSONAL PAY UNAVAILABLE SELF UNAVA ILABLE MEDICARE [id number] SP [id number] A MEDICARE A [id number] Self [id number] A MEDICARE [id number] SP [id number] A MEDICAID M [id number] Self [id number] MEDICAID [id number] SP [id number] [place] MED[place] [id number] SP [id number] [place] [id number] SP [id number] MEDICAID [id number] SP [id number] [facility] [id number] S [id number] [facility] [id number] SP [id number] MEDICARE COMPLETE [id number] SP [id number] WELLCARE [id number] SP [id number] WELLCARE [id number] SP [id number] WELLCARE O [id number] S [id number] WELLCARE [id number] S [id number] WELLCARE O [id number] S [id number] MEDICARE [id number] SP [id number] MEDICAID [id number] SP [id number] MEDICARE C [id number] S [id number] WELLCARE [id number] S [id number] MEDICARE [id number] S [id number] WELLCARE [id number] S [id number] MEDICARE -RECURRING [id number] 18 [id number] MEDICAID -RECURRING [id number] ANSI-Medicaid [id number] ANSI-Medicare Part B [id number] ANSI-Medicaid [id number] ANSI-Medicare Part B [id number] ANSI-Medicare Part B [id number] ANSI-Medicaid [id number] ANSI-Medicare Part B [id number] ANSI-Medicaid [id number] ANSI-Medicaid [id number] ANSI-Medicare Part B [id number] ANSI-Medicaid [id number] ANSI-Medicare Part B [id number] ANSI-Medicaid [id number] ANSI-Medicare Part B [id number] ANSI-Medicaid [id number] ANSI-Medicare Part B [id number] ANSI-Medicare Part B [id number] ANSI-Medicaid [id number] ANSI-Medicare Part B [id number] ANSI-Medicaid [id number] ANSI-Medicare Part B [id number] ANSI-Medicaid [id number] ANSI-Medicare Part B [id number] ANSI-Medicaid [id number] ANSI-Medicaid [id number] ANSI-Medicare Part B [id number] ANSI-Medicare Part B [id number] ANSI-Medicaid [id number] MEDICARE -RECURRING [id number] 18 [id number] ANSI-Medicaid [id number] ANSI-Medicare Part B [id number] ANSI-Medicaid [id number] ANSI-Medicare Part B [id number] ANSI-Medicare Part B [id number] ANSI-Medicaid [id number] Medicaid [place] Medigap Part B [id number] Self [id number] Medicare [facility] Medicare Primary [id number] Self [id number] ANSI-Medicare Part B [id number] ANSI-Medicaid [id number] ANSI-Medicaid [id number] ANSI-Medicare Part B [id number] ANSI-Medicaid [id number] ANSI-Medicare Part B [id number] ANSI-Medicare Part B [id number] ANSI-Medicaid [id number] ANSI-Medicare Part B [id number] ANSI-Medicaid [id number] MEDICARE [id number] ANSI-Medicare Part B [id number] ANSI-Medicaid [id number] ANSI-Medicaid [id number] ANSI-Medicare Part B [id number] ANSI-Medicare Part B [id number] ANSI-Medicaid [id number] ANSI-Medicaid [id number] ANSI-Medicare Part B [id number] ANSI-Medicaid [id number] ANSI-Medicare Part B [id number] ANSI-Medicare Part B [id number] ANSI-Medicaid [id number] ANSI-Medicaid [id number] ANSI-Medicare Part B [id number] ANSI-Medicaid [id number] ANSI-Medicare Part B [id number] ANSI-Medicaid [id number] ANSI-Medicare Part B [id number] ANSI-Medicaid [id number] ANSI-Medicare Part B [id number] ANSI-Medicaid [id number] ANSI-Medicare Part B [id number] ANSI-Medicare Part B [id number] ANSI-Medicaid [id number] ANSI-Medicare Part B [id number] ANSI-Medicaid [id number] MEDICARE C [id number] S [id number] A [place] MEDICARE PART B [id number] S [id number] Medicaid [place] Medigap Part B [id number] Self [id number] Medicare [place] Medicare Primary [id number] Self [id number] [facility] C [id number] S [id number] Medicaid [place] [facility] Part B [id number] Self [id number] Medicare [facility] Medicare Primary [id number] Self [id number] Medicaid [place] Med[place] Part B [id number] Self [id number] Medicare [facility] Medicare Primary [id number] Self [id number] MEDICAID [id number] SP [id number] MEDICAID [id number] SP [id number] MEDICAID -O/P [id number] MEDICARE -O/P [id number] 18 [id number] OTHER WORKERS COMPENSATION [id number] SP [id number] MEDICAID -CLINIC [id number] MEDICARE -CLINIC [id number] WORKMANS COMPENSATION -O/ [id number] 18 [id number] MEDICAID -PHYSICIAN [id number] WORKMANS COMPENSATION -O/P [id number] 18 [id number] MEDICARE -PHYSICIAN [id number] 18 [id number] [facility] MEDICAID [id number] SP [id number] MEDICARE COMPLETE [id number] SP [id number] MEDICARE COMPLETE [id number] SP [id number] MEDICARE COMPLETE [id number] SP [id number] [employer] MEDICARE [id number] S [id number] MEDICAID [id number] S [id number] [facility] [id number] SP [id number] MEDICARE [id number] SP [id number] WELLCARE [id number] SP [id number] MEDICARE [id number] SP [id number] [place] [id number] SP [id number] MEDICARE COMPLETE-[facility] O [id number] S [id number] MEDICAID M [id number] S [id number] MEDICARE COMPLETE-[employer] O [id number] S [id number] Problems, Conditions, and Diagnoses Code Display Name Description Problem Type Effective Dates Data Source(s) Z79.4 terminologist (current) use of insulin PRISON (CU RRENT) USE OF INSULIN Diagnosis 01/24/2021 12:59:00 PM EDT [facility] Z96.41 Presence of insulin pump (external) (int ernal) PRESENCE OF INSULIN PUMP (EXTERNAL) (INTERNAL) Diagnosis 01/24/2021 12:59:00 PM EDT [facility] E10.65 Type 1 diabetes mellitus with hyperglyce sera TYPE 1 DIABETES MELLITUS WITH HYPERGLYCEMIA Diagnosis 01/24/2021 12:59:00 PM EDT [facility] Z87.891 Personal history of nicotine dependence Personal history of nicotine dependence Diagnosis 12/14/2020 12:00:00 AM EDT ND[facility] ([facility]) Z86.16 Z86.16 Personal history of COVID-19 Diagnosis 021 12:00:00 AM EDT [facility]OC ([facility]) 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 Diagnosis 12/14/2020 12:00:00 AM EDT [facility] ([facility]) Z79.01 terminologist (current) use of anticoagulant s senior care (current) use of anticoagulants Diagnosis 12/14/2020 12:00:00 AM EDT [facility] ([facility]) Z79.82 terminologist (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 terminologist (cu rrent) use of aspirin Diagnosis 12/14/2020 12:00:00 AM EDT [facility] ([facility] ) E10.319 Type 1 diabetes mellitus wit h unspecified diabetic retinopathy without macular edema Type 1 diabetes mellitus with unspecifie d diabetic retinopathy without macular edema Diagnosis 12/14/2020 12:00:00 AM EDT [facility] ([facility]) M31.6 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 Diagnosis 12/14/2020 12:00:00 AM EDT [facility] ([facility]) E78.5 Hyperlipidemia, unspecified Hyperlipidemia, unspecifie d Diagnosis 12/14/2020 12:00:00 AM EDT [facility] ([facility]) G43.909 Migraine, unspecified, not intractable, without status migrainosus Migraine, unspecified, not intractable, without status migrainosus Diagnosis 12/14/2020 12:00:00 AM EDT [facility] ([facility]) E27.40 Unspecified adrenocortical insufficiency Unspecified adrenocortical insufficiency Diagnosis 12/14/2020 12:00:00 AM EDT [facility] ([facility]) M06.9 Rheumatoid arthritis, unspecified Rheumatoid art hritis, unspecified Diagnosis 12/14/2020 12:00:00 AM EDT NDOC ([facility] ) N40.1 Benign prostatic hyperplasia with lower urinary tract symptoms Benign prostatic hyperplasia with lower urinary tract symptoms Diagnosis 12/14/2020 12:00:00 AM EDT [facility] ([facility]) L40.9 Psoriasis, unspecified Psoriasis, unspecified Diagnosi s 12/14/2020 12:00:00 AM EDT [facility] ([facility]) R11.2 Nausea with vomiting, unspecified Nausea with vo miting, unspecified Diagnosis 12/14/2020 12:00:00 AM EDT [facility] ([facility] ) T40.7X1D Poisoning by cannabis (deriv atives), accidental (unintentional), subsequent encounter Poisoning by cannabis (derivatives), acc idental (unintentional), subsequent encounter Diagnosis 12/14/2020 12:00:00 AM EDT NDOC ([facility]) E10.43 Type 1 diabetes mellitus with diabetic a utonomic (poly)neuropathy Type 1 diabetes mellitus with diabetic autonomic (poly)neuropathy Diagnosis 12/14/2020 12:00:00 AM EDT NDOC ([facility]) E10.21 Type 1 diabetes mellitus with 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 Diagnosis 12/14/2020 12:00:00 AM ED T NDOC ([facility]) E10.42 Type 1 diabetes mellitus with diabetic p olyneuropathy Type 1 diabetes mellitus with diabetic polyneuropathy Diagnosis 12/14/2020 12:00:00 AM EDT NDOC ([facility]) E10.51 Type 1 diabetes mellitus wit h diabetic peripheral angiopathy without gangrene Type 1 diabetes mellitus with diabetic p eripheral angiopathy without gangrene Diagnosis 12/14/2020 12:00:00 AM EDT NDOC ([facility]) Z89.512 Acquired absence of left leg below knee Acquired absence of left leg below knee Diagnosis 12/14/2020 12:00:00 AM EDT [facility] ([facility]) M86.9 Osteomyelitis, unspecified Osteomyelitis, unspecified Diagnosis 12/14/2020 12:00:00 AM EDT NDOC ([facility]) E10.69 Type 1 diabetes mellitus with other spec ified complication Type 1 diabetes mellitus with other specified complication Diagnosis 12:00:00 AM EDT [facility]OC ([facility]) T87.43 Infection of amputation stump, right low er extremity Infection of amputation stump, right lower extremity Diagnosis 12/14/2020 12:00:00 AM EDT NDOC ([facility]) T87.89 Other complications of amputation stump Other complications of amputation stump Diagnosis 12/14/2020 12:00:00 AM EDT ND ([facility]) S88.912A 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, level unspecified, initial encounter COMPLETE TRAUMATIC AMPUTATION OF L LOW LEG, LEVEL UNSP , INIT Diagnosis 10/11/2020 10:38:00 AM EDT [facility] S88.911A Complete traumatic amputatio n of right lower leg, level unspecified, initial encounter COMPLETE TRAUMATIC AMPUTATION OF R LOW LEG, LEVEL UNSP , INIT Diagnosis 10/11/2020 10:38:00 AM EDT [facility] E78.5 Hyperlipidemia, unspecified HYPERLIPIDEMIA, UNSPECIFIE D Diagnosis 10/11/2020 10:38:00 AM EDT [facility] E27.40 Unspecified adrenocortical insufficiency UNSPECIFIED ADRENOCORTICAL INSUFFICIENCY Diagnosis 10/11/2020 10:38:00 AM EDT [facility] T87.89 [id number] Non-healing amputation site Problem 03/02/20 21 12:00:00 AM EST eCW1 ([facility]) T81.30XA Wound dehiscence Wound dehiscence Problem 03/02/2021 12 :00:00 AM EST eCW1 ([facility]) M86.9 [id number] Osteomyelitis, lower leg Problem 02/21/2021 12:00:00 AM EST eCW1 ([facility]) M86.9 [id number] Osteomyelitis of other site, unspecified type Problem 01/07/2021 12:00:00 AM EDT eCW1 ([facility]) E16.1 Hypoglycemia Hypoglycemia Problem 01/06/2021 12:00:00 A M EDT [facility] ([facility], ) E11.59 Peripheral vascular disorder due to diab etes mellitus Peripheral vascular disorder due to diabetes mellitus Problem 01/06/2021 12:00:00 AM ED T [facility] ([facility] ) T81.30xA Traumatic wound dehiscence Traumatic wound dehiscence Problem 12/17/2020 12:00:00 AM EDT [facility] ([facility], ) 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 Problem 12/17/2020 12:00:00 AM EDT [facility] ([facility] ) D61.818 [id number] Pancytopenia Problem 12/16/2020 12:00:00 AM EDT eCW1 ([facility]) S88.111A [id number] Below-knee amputation of right lower extr emity Problem 04/06/2020 12:00:00 AM EST eCW1 ([facility]) Z89.511 [id number] Acquired absence of right leg below knee Problem 03/11/2020 12:00:00 AM EST eCW1 ([facility]) Z89.512 [id number] 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 Problem 03/11/2020 12:00:00 AM EST eCW1 ([facility]) S88.119A [id number] Amputation below knee Problem 02/24/2020 12: 00:00 AM EST eCW1 ([facility]) M86.9 [id number] Osteomyelitis of right foot, unspecif ied type Problem 02/19/2020 12:00:00 AM EST eCW1 ([facility]) [id number] O/E - Amputated left below knee O/E - Amputated left below knee Problem 01/26/2020 12:00:00 AM EDT [facility] ([facility] [id number] Pain in limb Pain in limb Problem 01/26/2020 12:00:00 A M EDT [facility] ([facility] [id number] Gangrenous disorder Gangrenous disorder Problem 1 12:00:00 AM EDT [facility] ([facility] [id number] Pressure ulcer of right foot stage 4 Pre ssure ulcer of right foot stage 4 Problem 01/26/2020 12:00:00 AM EDT [facility] ([facility] [id number] Type 2 diabetes mellitus with ulcer Type 2 diabetes mellitus with ulcer Problem 01/26/2020 12:00:00 AM EDT [facility] ([facility] Surgeries/Procedures Procedure Description Date Indications Data Source(s) Medication: Silver Nitrate Stick topically 03/02/2021 12:00:00 AM EST eCW1 ([facility]) FINE NEEDLE ASPIRATION W/O IMAGING GUIDANCE 03/02/2021 12:00:00 AM EST eC ([facility]) Hospital outpatient clinic visit for assessment and ma nagement of a patient Hospital Outpatient Clinic Visit 01/24/2021 12:00:00 AM [facility] GLUC BLD GLUC MNTR DEV CLEARED FDA SPEC HOME USE GLUCOSE BLO OD TEST 01/24/2021 12:00:00 AM [facility] COLLECTION VENOUS BLOOD VENIPUNCTURE ROUTINE VENIPUNCTURE 12:00:00 AM [facility] HEMOGLOBIN GLYCOSYLATED A1C GLYCOSYLATED HEMOGLOBIN TEST 12:00:00 AM [facility] LIPID PANEL LIPID PANEL 01/24/2021 12:00:00 AM [facility] BASIC METABOLIC PANEL CALCIUM TOTAL METABOLIC PANEL TOTAL CA 01/24/2021 12:00:00 AM [facility] Debridement Skin, Subcutaneous Tissue & Muscle 12:00:00 AM EDT MEDENT ([facility], ) OFFICE OUTPATIENT VISIT 15 MINUTES 01/06/2021 12:00:00 AM EDT [facility] ([facility]) AMP LEG THRU TIBIA&FIBULA RE-AMPUTATION 12/08/2020 12: 00:00 AM EDT [facility] ([facility]) OFFICE OUTPATIENT VISIT 15 MINUTES 11/11/2020 12:00:00 AM EDT [facility] ([facility]) OFFICE OUTPATIENT VISIT 15 MINUTES 11/01/2020 12:00:00 AM EDT [facility] ([facility]) COMPREHENSIVE METABOLIC PANEL COMPREHEN METABOLIC PANEL 09/30 12:00:00 AM [facility] OFFICE OUTPATIENT VISIT 15 MINUTES 08/12/2020 12:00:00 AM EDT [facility] ([facility]) OFFICE OUTPATIENT VISIT 15 MINUTES 07/08/2020 12:00:00 AM EDT [facility] ([facility]) OFFICE OUTPATIENT VISIT 15 MINUTES 06/07/2020 12:00:00 AM EST [facility] ([facility]) Amputation Below Knee 03/03/2020 12:00:00 AM EST [facility] ([facility]) FINE NEEDLE ASPIRATION W/O IMAGING GUIDANCE 02/23/2020 12:00:00 AM EST eCW1 ([facility]) Amputation Metatarsal W/Toe 01/28/2020 12:00:00 AM EDT [facility] ([facility] FINE NEEDLE ASPIRATION W/O IMAGING GUIDANCE 01/19/2020 12:00:00 AM EDT eCW1 ([facility]) FINE NEEDLE ASPIRATION W/O IMAGING GUIDANCE 01/09/2020 12:00:00 AM EDT eCW1 ([facility]) Results ID Date Data Source [id number] 02/11/2021 10:15:00 PM EST [facility] Name Value Range Interpretation Code Description Data Mireille rce(s) Supporting Document(s) SARS coronavirus 2 RNA [Presence] in Res piratory specimen by DAILY with probe detection NEGATIVE [facility] This lab was ordered by [facility] a nd reported by [facility]. ID Date Data Source [id number] 01/24/2021 05:41:00 PM EDT [facility] Name Value Range Interpretation Code Description Data Mireille rce(s) Supporting Document(s) Hemoglobin A1C % Less than 5.7% Above high normal [facility] HBA1C: Normal: Less than 5.7% Prediabetes: 5.7% to 6.4% Diabetes: 6.5% or higher HA1C % vs Estimated Average Glucose (eAG) % eAG % eAG 6% 126 mg/dL 10% 240 mg/dL 7% 154 mg/dL 11% 269 mg/dL 8% 183 mg/dL 12% 298 mg/dL 9% 212 mg/dL Reference: [employer], 2017 ID Date Data Source [id number] 01/24/2021 05:34:00 PM EDT [facility] Name Value Range Interpretation Code Description Data [facility] rce(s) Supporting Document(s) Sodium 137 mmol/L 137-145 Normal (applies to non-numeric resul ts) [facility] Potassium 3.5-5.1 Normal (applies to non-numeric resul ts) [facility] Chloride 107 mmol/L 98-112 Normal (applies to non-numeric resul ts) [facility] Carbon Dioxide CO2 22.0-33.0 Normal (applies to non-numer ic results) [facility] Anion Gap 4.0-11.0 Normal (applies to non-numeric resul ts) [facility] BUN 16 mg/dL 9-20 Normal (applies to non-numeric resul ts) [facility] Creatinine 0.80-1.50 Normal (applies to non-numeric resul ts) [facility] GFR 55 mL/min >60 Below low normal [facility] Result based on MDRD formula. Glucose Level 107 mg/dL 74-99 Above high normal [facility] The reference range is only applicable w hen fasting. Calcium-Uncorrected 8.4-10.2 Normal (applies to non-nume nelson results) [facility] Corrected Calcium 8.4-10.2 Normal (applies to non-numeri c results) [facility] ID Date Data Source [id number] 01/24/2021 05:34:00 PM EDT [facility] Name Value Range Interpretation Code Description Data Mireille rce(s) Supporting Document(s) Triglycerides 52 mg/dL 0-150 Normal (applies to non-numeric re sults) [facility] Cholesterol 119 mg/dL 0-200 Normal (applies to non-numeric resu lts) [facility] LDL Cholesterol,Direct 50 mg/dL <100 Normal (applies to non-n umeric results) [facility] LDL Interpretative Data Optimal <100 (mg/dL) Near optimal 100-129 (mg/dL) Borderline High 130-159 (mg/dL) High 160-189 (mg/dL) Very High >190 (mg/dL) HDL Cholesterol 63 mg/dL 40-60 Above high normal [facility] CHOL/HDL Ratio Normal (applies to non-numeric r esults) [facility] NATIONAL CHOLESTEROL GUIDEL [facility], [...] Average 13.5 11.0 ID Date Data Source [id number] 01/10/2021 06:21:00 AM EDT [facility] Name Value Range Interpretation Code Description Data Mireille rce(s) Supporting Document(s) SARS coronavirus 2 RNA [Presence] in Res piratory specimen by DAILY with probe detection NEGATIVE [facility] This lab was ordered by [facility] a nd reported by [facility]. ID Date Data Source [id number] 01/02/2021 02:12:00 PM EDT [facility] Name Value Range Interpretation Code Description Data Mireille rce(s) Supporting Document(s) SARS-CoV-2 (COVID 19) NEGATIVE - SARS-CoV-2 (COVID19) [facility] This lab was ordered by [facility] a nd reported by [facility]. ID Date Data Source [id number] 12/19/2020 11:07:00 PM EDT [facility] Name Value Range Interpretation Code Description Data Mireille rce(s) Supporting Document(s) SARS coronavirus 2 RNA [Presence] in Res piratory specimen by DAILY with probe detection NEGATIVE [facility] This lab was ordered by [facility] a nd reported by [facility]. ID Date Data Source [id number] 12/06/2020 12:21:00 AM EDT [facility] Name Value Range Interpretation Code Description Data Mireille rce(s) Supporting Document(s) SARS coronavirus 2 RNA [Presence] in Res piratory specimen by DAILY with probe detection NEGATIVE [facility] This lab was ordered by [facility] a nd reported by [facility]. ID Date Data Source [id number] 10/11/2020 01:58:00 PM EDT [facility] Name Value Range Interpretation Code Description Data Mireille rce(s) Supporting Document(s) Hemoglobin A1C % Less than 5.7% Above high normal [facility] HBA1C: Normal: Less than 5.7% Prediabetes: 5.7% to 6.4% Diabetes: 6.5% or higher HA1C % vs Estimated Average Glucose (eAG) % eAG % eAG 6% 126 mg/dL 10% 240 mg/dL 7% 154 mg/dL 11% 269 mg/dL 8% 183 mg/dL 12% 298 mg/dL 9% 212 mg/dL Reference: [employer], 2017 ID Date Data Source [id number] 10/11/2020 01:21:00 PM EDT [facility] Name Value Range Interpretation Code Description Data Mireille rce(s) Supporting Document(s) Sodium 137 mmol/L 137-145 Normal (applies to non-numeric resul ts) [facility] Potassium 3.5-5.1 Normal (applies to non-numeric resul ts) [facility] Chloride 102 mmol/L 98-112 Normal (applies to non-numeric resul ts) [facility] Carbon Dioxide CO2 22.0-33.0 Normal (applies to non-numer ic results) [facility] Anion Gap 4.0-11.0 Normal (applies to non-numeric resul ts) [facility] BUN 16 mg/dL 9-20 Normal (applies to non-numeric resul ts) [facility] Creatinine 0.80-1.50 Normal (applies to non-numeric resul ts) [facility] GFR 66 mL/min >60 Normal (applies to non-numeric resul ts) [facility] Result based on MDRD formula. Glucose Level 194 mg/dL 74-99 Above high normal [facility] The reference range is only applicable w hen fasting. Calcium-Uncorrected 8.4-10.2 Normal (applies to non-nume nelson results) [facility] Corrected Calcium 8.4-10.2 Normal (applies to non-numeri c results) [facility] Bilirubin,Total 0.2-1.3 Normal (applies to non-numeric results) [facility] SGOT(AST) 42 U/L 17-59 Normal (applies to non-numeric resul ts) [facility] SGPT(ALT) 57 U/L 21-72 Normal (applies to non-numeric resul ts) [facility] Alkaline Phosphatase 89 U/L 38-126 Normal (applies to non-num gage results) [facility] can increase Alkaline Phosp le vels up to 2 times the normal adult value. Normal values for children and adolescents are 2 to 3 times the normal adult value. Total Protein 6.3-8.2 Normal (applies to non-numeric re sults) [facility] Albumin 3.5-5.0 Normal (applies to non-numeric resul ts) [facility] ID Date Data Source [id number] 08/14/2020 10:59:00 PM EDT [facility] Name Value Range Interpretation Code Description Data Mireille rce(s) Supporting Document(s) SARS-CoV-2 (COVID 19) NEGATIVE - SARS-CoV-2 (COVID19) [facility] This lab was ordered by [facility] a nd reported by [facility]. ID Date Data Source [id number] 07/09/2020 03:28:00 PM EDT [facility] Name Value Range Interpretation Code Description Data Mireille rce(s) Supporting Document(s) Hemoglobin A1C % Less than 5.7% Above high normal [facility] HBA1C: Normal: Less than 5.7% Prediabetes: 5.7% to 6.4% Diabetes: 6.5% or higher HA1C % vs Estimated Average Glucose (eAG) % eAG % eAG 6% 126 mg/dL 10% 240 mg/dL 7% 154 mg/dL 11% 269 mg/dL 8% 183 mg/dL 12% 298 mg/dL 9% 212 mg/dL Reference: [employer], 2017 ID Date Data Source [id number] 07/09/2020 03:23:00 PM EDT [facility] Name Value Range Interpretation Code Description Data Mireille rce(s) Supporting Document(s) Sodium 136 mmol/L 137-145 Below low normal [facility] Potassium 3.5-5.1 Normal (applies to non-numeric resul ts) [facility] Chloride 101 mmol/L 98-112 Normal (applies to non-numeric resul ts) [facility] Carbon Dioxide CO2 22.0-33.0 Normal (applies to non-numer ic results) [facility] Anion Gap 4.0-11.0 Normal (applies to non-numeric resul ts) [facility] BUN 17 mg/dL 9-20 Normal (applies to non-numeric resul ts) [facility] Creatinine 0.80-1.50 Normal (applies to non-numeric resul ts) [facility] GFR 57 mL/min >60 Below low normal [facility] Result based on MDRD formula. Glucose Level 296 mg/dL 74-99 Above high normal [facility] The reference range is only applicable w hen fasting. Calcium-Uncorrected 8.4-10.2 Normal (applies to non-nume nelson results) [facility] Corrected Calcium 8.4-10.2 Normal (applies to non-numeri c results) [facility] ID Date Data Source [id number] 05/02/2020 02:06:00 AM EST [facility] Name Value Range Interpretation Code Description Data Mireille rce(s) Supporting Document(s) SARS coronavirus 2 RNA [Presence] in Res piratory specimen by DAILY with probe detection POSITIVE [facility] This lab was ordered by [facility] a nd reported by [facility]. ID Date Data Source [id number] 04/29/2020 10:04:00 AM EST [facility] Name Value Range Interpretation Code Description Data Mireille rce(s) Supporting Document(s) SARS COVID ANTIGEN POSITIVE [facility] a [facility] reported by [facility]. ID Date Data Source [id number] COVID AG (Point of Care) 04/29/2020 12:00:00 AM EST eC W1 ([facility]) Name Value Range Interpretation Code Description Data Mireille rce(s) Supporting Document(s) POSITIVE NEGATIVE LYNNE COVID ANTIGEN eCW1 ([facility]) ID Date Data Source [id number] 04/12/2020 08:23:00 PM EST [facility] Name Value Range Interpretation Code Description Data Mireille rce(s) Supporting Document(s) SARS-CoV-2 (COVID 19) NEGATIVE - SARS-CoV-2 (COVID19) [facility] This lab was ordered by [facility] a nd reported by [facility]. ID Date Data Source [id number] 03/16/2020 05:11:00 AM EST [facility] Name Value Range Interpretation Code Description Data Mireille rce(s) Supporting Document(s) Hemoglobin A1C % Less than 5.7% Above high normal [facility] HBA1C: Normal: Less than 5.7% Prediabetes: 5.7% to 6.4% Diabetes: 6.5% or higher HA1C % vs Estimated Average Glucose (eAG) % eAG % eAG 6% 126 mg/dL 10% 240 mg/dL 7% 154 mg/dL 11% 269 mg/dL 8% 183 mg/dL 12% 298 mg/dL 9% 212 mg/dL Reference: [employer], 2017 ID Date Data Source [id number] 02/28/2020 11:00:00 AM EST [facility] Name Value Range Interpretation Code Description Data [facility] rce(s) Supporting Document(s) SARS coronavirus 2 RNA [facility] This lab was ordered by [facility] and reported by [facility]. ID Date Data Source [id number] 01/28/2020 04:53:00 PM EDT [facility] ([facility] Name Value Range Interpretation Code Description Data [facility] rce(s) Supporting Document(s) Glucose [Mass/volume] in Capillary blood by Glucometer 154 mg/dL 80-115 Above high normal [facility] ([facility] ID Date Data Source [id number] 01/28/2020 04:09:00 PM EDT [facility] ([facility] Name Value Range Interpretation Code Description Data [facility] rce(s) Supporting Document(s) Surgical pathology study Laboratory test result [facility] ([facility] FINAL DIAGNOSIS Right hallux, 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 Margin appears viable. 01/30/202001 CLINICAL DIAGNOSIS Right hallux gangrene 01/29/2020 - 1304 GROSS DIAGNOSIS Received in formalin labeled "right hallux" and consists of a fragment of hallux 2.5 x 1 x 1 cm. An area of gangrenous changes is noted. [employer] sections are submitted in two after decalcification. -OA 01/29/2020 - 1304 Signed SALINA SAUNDERS MD 01/30/2020 0957 ID Date Data Source [id number] 01/28/2020 11:26:00 AM EDT [facility] ([facility] Name Value Range Interpretation Code Description Data Mireille rce(s) Supporting Document(s) Glucose [Mass/volume] in Capillary blood by Glucometer 91 mg/dL 80- 115 [facility] ([facility] Procedure Social History Code Duration Value Status Description Data Source(s ) Smoking 03/02/2021 12:00:00 AM EST Former Smoker completed Former Smoker eCW1 ([facility]) Smoking 03/02/2021 12:00:00 AM EST Former Smoker completed Former Smoker [email or web address] ([facility]) Smoking 02/21/2021 12:00:00 AM EST Former Smoker completed Former Smoker [email or web address] ([facility]) Smoking 02/21/2021 12:00:00 AM EST Former Smoker completed Former Smoker [email or web address] ([facility]) Smoking 01/21/2021 12:00:00 AM EDT Former Smoker completed Former Smoker [email or web address] ([facility]) Smoking 01/21/2021 12:00:00 AM EDT Former Smoker completed Former Smoker [email or web address] ([facility]) Smoking 01/21/2021 12:00:00 AM EDT Former Smoker completed Former Smoker [email or web address] ([facility]) Smoking 12/23/2020 12:00:00 AM EDT Former Smoker completed Former Smoker [email or web address] ([facility]) Smoking 12/23/2020 12:00:00 AM EDT Former Smoker completed Former Smoker [email or web address] ([facility]) Smoking 12/23/2020 12:00:00 AM EDT Former Smoker completed Former Smoker eCW1 ([facility]) Smoking 12/16/2020 12:00:00 AM EDT Former Smoker completed Former Smoker eCW1 ([facility]) Smoking 12/16/2020 12:00:00 AM EDT Former Smoker completed Former Smoker eCW1 ([facility]) Smoking 08/24/2020 12:00:00 AM EDT Former Smoker completed Former Smoker eCW1 ([facility]) Smoking 08/24/2020 12:00:00 AM EDT Former Smoker completed Former Smoker eCW1 ([facility]) Smoking 08/24/2020 12:00:00 AM EDT Former Smoker completed Former Smoker eCW1 ([facility]) Smoking 08/24/2020 12:00:00 AM EDT Former Smoker completed Former Smoker eCW1 ([facility]) Smoking 08/24/2020 12:00:00 AM EDT Former Smoker completed Former Smoker eCW1 ([facility]) Smoking 07/27/2020 12:00:00 AM EDT Former Smoker completed Former Smoker eCW1 ([facility]) Smoking 07/27/2020 12:00:00 AM EDT Former Smoker completed Former Smoker eCW1 ([facility]) Smoking 07/27/2020 12:00:00 AM EDT Former Smoker completed Former Smoker eCW1 ([facility]) Smoking 07/27/2020 12:00:00 AM EDT Former Smoker completed Former Smoker eCW1 ([facility]) Smoking 07/27/2020 12:00:00 AM EDT Former Smoker completed Former Smoker eCW1 ([facility]) Smoking 07/06/2020 12:00:00 AM EDT Former Smoker completed Former Smoker eCW1 ([facility]) Smoking 07/06/2020 12:00:00 AM EDT Former Smoker completed Former Smoker eCW1 ([facility]) Smoking 07/06/2020 12:00:00 AM EDT Former Smoker completed Former Smoker [email or web address] ([facility]) Smoking 05/28/2020 12:00:00 AM EST Non Smoker completed Non Smoke r MEDENT ([facility], ) Smoking 05/13/2020 12:00:00 AM EST Former Smoker completed Former Smoker [email or web address] ([facility]) Smoking 05/13/2020 12:00:00 AM EST Former Smoker completed Former Smoker [email or web address] ([facility]) Smoking 05/13/2020 12:00:00 AM EST Former Smoker completed Former Smoker eCW1 ([facility]) Smoking 05/13/2020 12:00:00 AM EST Former Smoker completed Former Smoker eCW1 ([facility]) Smoking 05/05/2020 12:00:00 AM EST Former Smoker completed Former Smoker eCW1 ([facility]) Smoking 05/05/2020 12:00:00 AM EST Former Smoker completed Former Smoker eCW1 ([facility]) Smoking 05/05/2020 12:00:00 AM EST Former Smoker completed Former Smoker eCW1 ([facility]) Smoking 05/05/2020 12:00:00 AM EST Former Smoker completed Former Smoker eCW1 ([facility]) Smoking 05/05/2020 12:00:00 AM EST Former Smoker completed Former Smoker eCW1 ([facility]) Smoking 05/05/2020 12:00:00 AM EST Former Smoker completed Former Smoker eCW1 ([facility]) Smoking 05/05/2020 12:00:00 AM EST Former Smoker completed Former Smoker eCW1 ([facility]) Smoking 04/29/2020 12:00:00 AM EST Former Smoker completed Former Smoker eCW1 ([facility]) Smoking 04/06/2020 12:00:00 AM EST Former Smoker completed Former Smoker eCW1 ([facility]) Smoking 04/06/2020 12:00:00 AM EST Former Smoker completed Former Smoker eCW1 ([facility]) Smoking 04/06/2020 12:00:00 AM EST Former Smoker completed Former Smoker eCW1 ([facility]) Smoking 04/06/2020 12:00:00 AM EST Former Smoker completed Former Smoker eCW1 ([facility]) Smoking 04/06/2020 12:00:00 AM EST Former Smoker completed Former Smoker eCW1 ([facility]) Smoking 04/06/2020 12:00:00 AM EST Former Smoker completed Former Smoker eCW1 ([facility]) Smoking 04/06/2020 12:00:00 AM EST Former Smoker completed Former Smoker eCW1 ([facility]) Smoking 02/25/2020 12:00:00 AM EST Former Smoker completed Former Smoker eCW1 ([facility]) Smoking 02/25/2020 12:00:00 AM EST Former Smoker completed Former Smoker eCW1 ([facility]) Smoking 02/25/2020 12:00:00 AM EST Former Smoker completed Former Smoker eCW1 ([facility]) Smoking 02/25/2020 12:00:00 AM EST Former Smoker completed Former Smoker eCW1 ([facility]) Smoking 02/25/2020 12:00:00 AM EST Former Smoker completed Former Smoker eCW1 ([facility]) Smoking 02/25/2020 12:00:00 AM EST Former Smoker completed Former Smoker eCW1 ([facility]) Smoking 02/25/2020 12:00:00 AM EST Former Smoker completed Former Smoker eCW1 ([facility]) Smoking 02/24/2020 12:00:00 AM EST Former Smoker completed Former Smoker eCW1 ([facility]) Smoking 02/19/2020 12:00:00 AM EST Former Smoker completed Former Smoker eCW1 ([facility]) Smoking 02/19/2020 12:00:00 AM EST Former Smoker completed Former Smoker eCW1 ([facility]) Smoking 02/19/2020 12:00:00 AM EST Former Smoker completed Former Smoker eCW1 ([facility]) Smoking 02/09/2020 12:00:00 AM EST Former Smoker completed Former Smoker eCW1 ([facility]) Smoking 02/09/2020 12:00:00 AM EST Former Smoker completed Former Smoker eCW1 ([facility]) Smoking 01/19/2020 12:00:00 AM EDT Former Smoker completed Former Smoker eCW1 ([facility]) Smoking 01/19/2020 12:00:00 AM EDT Former Smoker completed Former Smoker [email or web address] ([facility]) Smoking 01/19/2020 12:00:00 AM EDT Former Smoker completed Former Smoker [email or web address] ([facility]) Vital Signs ID Date Data Source UNK Name Value Range Interpretation Code Description Data Source(s) Body weight 157 [lb_av] 157 [lb_av] eCW1 ([facility]) Body height 69 [in_i] 69 [in_i] eCW1 ([facility]) Body mass index (BMI) [Ratio] 23.18 kg/m2 23.18 kg/m2 eCW1 ([facility]) Heart rate 84 /min 84 /min eCW1 ([facility]) Respiratory rate 16 /min 16 /min eCW1 ([facility]) Body temperature 98.1 [degF] 98.1 [degF] eCW1 ( [facility]) Systolic blood pressure 101 mm[Hg] 101 mm[Hg] e CW1 ([facility]) Diastolic blood pressure 44 mm[Hg] 44 mm[Hg] eCW1 ([facility]) Body weight 159.2 [lb_av] 159.2 [lb_av] eCW1 ([facility]) Body weight 72.21 kg 72.21 kg eCW1 ([facility]) Body height 69 [in_i] 69 [in_i] eCW1 ([facility]) Body mass index (BMI) [Ratio] 23.51 kg/m2 23.51 kg/m2 W1 ([facility]) Heart rate 93 /min 93 /min eCW1 ([facility]) Respiratory rate 17 /min 17 /min eCW1 ([facility]) Body temperature 97.6 [degF] 97.6 [degF] eCW1 ( [facility]) Systolic blood pressure 110 mm[Hg] 110 mm[Hg] e CW1 ([facility]) Diastolic blood pressure 48 mm[Hg] 48 mm[Hg] eCW1 ([facility]) Systolic blood pressure 109 mm[Hg] 109 mm[Hg] M EDENT ([facility], ) Diastolic blood pressure 65 mm[Hg] 65 mm[Hg] MEDENT ([facility], ) Heart rate 82 /min 82 /min MEDENT ([facility]) Body temperature 98.8 [degF] 98.8 [degF] MEDENT ([facility]) Body height 69 [in_i] 69 [in_i] [facility] ([facility]) 5'9" Body weight 164.00 [lb_av] 164.00 [lb_av] MEDEN T ([facility]) Body mass index (BMI) [Ratio] 24.2 kg/m2 24.2 k g/m2 [facility] ([facility]) [place] body weight 160 [lb_av] 160 [lb_av] MEDEN T ([facility]) Body weight 74.390 kg 74.390 kg [facility] ([facility]) Body surface area Derived from formula 1.90 m2 1.90 m2 [facility] ([facility]) Body weight 154.4 [lb_av] 154.4 [lb_av] eCW1 ([facility]) Body height 69 [in_i] 69 [in_i] eCW1 ([facility]) Body mass index (BMI) [Ratio] 22.80 kg/m2 22.80 kg/m2 W1 ([facility]) Heart rate 78 /min 78 /min eCW1 ([facility]) Respiratory rate 18 /min 18 /min W1 ([facility]) Body temperature 97.6 [degF] 97.6 [degF] eCW1 ( [facility]) Systolic blood pressure 146 mm[Hg] 146 mm[Hg] e CW1 ([facility]) Diastolic blood pressure 66 mm[Hg] 66 mm[Hg] eCW1 ([facility]) Systolic blood pressure 138 mm[Hg] 138 mm[Hg] M EDENT ([facility]) Body weight 152.00 [lb_av] 152.00 [lb_av] MEDEN T ([facility]) Body mass index (BMI) [Ratio] 22.4 kg/m2 22.4 k g/m2 [facility] ([facility]) [place] body weight 160 [lb_av] 160 [lb_av] MEDEN T ([facility]) Body weight 68.947 kg 68.947 kg MEDENT ([facility]) Body surface area Derived from formula 1.84 m2 1.84 m2 [facility] ([facility]) Diastolic blood pressure 80 mm[Hg] 80 mm[Hg] MEDENT ([facility]) Body temperature 97.9 [degF] 97.9 [degF] MEDENT ([facility]) Body height 69 [in_i] 69 [in_i] MED[facility] ([facility]) 5'9" Body weight 162.6 [lb_av] 162.6 [lb_av] eCW1 ([facility]) Body height 69 [in_i] 69 [in_i] eCW1 ([facility]) Body mass index (BMI) [Ratio] 24.01 kg/m2 24.01 kg/m2 eCW1 ([facility]) Heart rate 70 /min 70 /min eCW1 ([facility]) Respiratory rate 18 /min 18 /min eCW1 ([facility]) Body temperature 98.1 [degF] 98.1 [degF] eCW1 ( [facility]) Systolic blood pressure 112 mm[Hg] 112 mm[Hg] e CW1 ([facility]) Diastolic blood pressure 55 mm[Hg] 55 mm[Hg] eCW1 ([facility]) Heart rate 65 /min 65 /min MEDENT ([facility]) Systolic blood pressure 116 mm[Hg] 116 mm[Hg] M EDENT ([facility]) Body mass index (BMI) [Ratio] 24.4 kg/m2 24.4 k g/m2 MED[facility] ([facility]) Diastolic blood pressure 71 mm[Hg] 71 mm[Hg] MED[facility] ([facility]) Body height 69 [in_i] 69 [in_i] [facility] ([facility]) 5'9" Body weight 165.25 [lb_av] 165.25 [lb_av] MEDEN T ([facility]) [place] body weight 160 [lb_av] 160 [lb_av] MEDEN T ([facility]) Body weight 74.957 kg 74.957 kg MEDENT ([facility]) Body surface area Derived from formula 1.91 m2 1.91 m2 MEDENT ([facility]) Body weight 165.2 [lb_av] 165.2 [lb_av] eCW1 ([facility]) Body height 69 [in_i] 69 [in_i] eCW1 ([facility]) Body mass index (BMI) [Ratio] 24.39 kg/m2 24.39 kg/m2 eCW1 ([facility]) Heart rate 73 /min 73 /min eCW1 ([facility]) Respiratory rate 18 /min 18 /min eCW1 ([facility]) Body temperature 97.4 [degF] 97.4 [degF] eCW1 ( [facility]) Systolic blood pressure 106 mm[Hg] 106 mm[Hg] e CW1 ([facility]) Diastolic blood pressure 49 mm[Hg] 49 mm[Hg] eCW1 ([facility]) Body mass index (BMI) [Ratio] 24.2 kg/m2 24.2 k g/m2 MEDENT ([facility]) Body weight 164.00 [lb_av] 164.00 [lb_av] MEDEN T ([facility]) Systolic blood pressure 153 mm[Hg] 153 mm[Hg] M EDENT ([facility]) Diastolic blood pressure 76 mm[Hg] 76 mm[Hg] MEDENT ([facility]) Heart rate 67 /min 67 /min MEDENT ([facility]) Body height 69 [in_i] 69 [in_i] MEDENT ([facility]) 5'9" [place] body weight 160 [lb_av] 160 [lb_av] MEDEN T ([facility]) Body weight 74.390 kg 74.390 kg MEDENT ([facility]) Body surface area Derived from formula 1.90 m2 1.90 m2 [facility] ([facility]) Body weight 74.390 kg 74.390 kg [facility] ([facility]) Body height 69 [in_i] 69 [in_i] [facility] ([facility]) 5'9" Systolic blood pressure 130 mm[Hg] 130 mm[Hg] M EDENT ([facility]) Diastolic blood pressure 68 mm[Hg] 68 mm[Hg] [facility] ([facility]) Body weight 164.00 [lb_av] 164.00 [lb_av] MEDEN T ([facility]) stated Body mass index (BMI) [Ratio] 24.2 kg/m2 24.2 k g/m2 [facility] ([facility]) [place] body weight 160 [lb_av] 160 [lb_av] MEDEN T ([facility]) Body surface area Derived from formula 1.90 m2 1.90 m2 [facility] ([facility]) Body weight 158 [lb_av] 158 [lb_av] eCW1 ([facility]) Body height 69 [in_i] 69 [in_i] eCW1 ([facility]) Body mass index (BMI) [Ratio] 23.33 kg/m2 23.33 kg/m2 W1 ([facility]) Heart rate 60 /min 60 /min eCW1 ([facility]) Respiratory rate 18 /min 18 /min eCW1 ([facility]) Body temperature 97.9 [degF] 97.9 [degF] eCW1 ( [facility]) Systolic blood pressure 182 mm[Hg] 182 mm[Hg] e CW1 ([facility]) Diastolic blood pressure 73 mm[Hg] 73 mm[Hg] eCW1 ([facility]) Body height 69 [in_i] 69 [in_i] [facility] ([facility]) 5'9" Body weight 164.00 [lb_av] 164.00 [lb_av] MEDEN T ([facility]) Systolic blood pressure 159 mm[Hg] 159 mm[Hg] M EDENT ([facility]) Body surface area Derived from formula 1.90 m2 1.90 m2 [facility] ([facility]) Diastolic blood pressure 77 mm[Hg] 77 mm[Hg] [facility] ([facility]) Heart rate 66 /min 66 /min [facility] ([facility]) Body mass index (BMI) [Ratio] 24.2 kg/m2 24.2 k g/m2 [facility] ([facility]) [place] body weight 160 [lb_av] 160 [lb_av] MEDEN T ([facility]) Body weight 74.390 kg 74.390 kg [facility] ([facility]) Body weight 164.00 [lb_av] 164.00 [lb_av] MEDEN T ([facility]) Body mass index (BMI) [Ratio] 24.2 kg/m2 24.2 k g/m2 [facility] ([facility]) [place] body weight 160 [lb_av] 160 [lb_av] MEDEN T ([facility]) Body weight 74.390 kg 74.390 kg [facility] ([facility]) Body height 69 [in_i] 69 [in_i] [facility] ([facility]) 5'9" Body surface area Derived from formula 1.90 m2 1.90 m2 [facility] ([facility]) Body weight 158.8 [lb_av] 158.8 [lb_av] eCW1 ([facility]) Body height 69 [in_i] 69 [in_i] eCW1 ([facility]) Body mass index (BMI) [Ratio] 23.45 kg/m2 23.45 kg/m2 W1 ([facility]) Heart rate 71 /min 71 /min eCW1 ([facility]) Respiratory rate 18 /min 18 /min eCW1 ([facility]) Body temperature 98.0 [degF] 98.0 [degF] eCW1 ( [facility]) Systolic blood pressure 157 mm[Hg] 157 mm[Hg] e CW1 ([facility]) Diastolic blood pressure 72 mm[Hg] 72 mm[Hg] eCW1 ([facility]) Diastolic blood pressure 63 mm[Hg] 63 mm[Hg] [facility]) Systolic blood pressure 115 mm[Hg] 115 mm[Hg] M [facility] ([facility]) Body mass index (BMI) [Ratio] 22.3 kg/m2 22.3 k g/m2 [facility] ([facility]) Heart rate 78 /min 78 /min [facility] ([facility]) Body height 69 [in_i] 69 [in_i] [facility] ([facility]) 5'9" Body weight 151.00 [lb_av] 151.00 [lb_av] MEDEN T ([facility]) Body surface area Derived from formula 1.83 m2 1.83 m2 [facility] ([facility]) [place] body weight 160 [lb_av] 160 [lb_av] MEDEN T ([facility]) Body weight 68.494 kg 68.494 kg [facility] ([facility]) Body weight 151.2 [lb_av] 151.2 [lb_av] eCW1 ([facility]) Body height 69 [in_i] 69 [in_i] eCW1 ([facility]) Body mass index (BMI) [Ratio] 22.33 kg/m2 22.33 kg/m2 eCW1 ([facility]) Heart rate 81 /min 81 /min eCW1 ([facility]) Respiratory rate 17 /min 17 /min eCW1 ([facility]) Body temperature 98.1 [degF] 98.1 [degF] eCW1 ( [facility]) Systolic blood pressure 114 mm[Hg] 114 mm[Hg] e CW1 ([facility]) Diastolic blood pressure 55 mm[Hg] 55 mm[Hg] eCW1 ([facility]) Systolic blood pressure 136 mm[Hg] 136 mm[Hg] M EDENT ([facility]) Diastolic blood pressure 78 mm[Hg] 78 mm[Hg] MEDENT ([facility]) Heart rate 69 /min 69 /min [facility] ([facility]) Body height 69 [in_i] 69 [in_i] [facility] ([facility]) 5'9" Body weight 153.50 [lb_av] 153.50 [lb_av] MEDEN T ([facility]) Body mass index (BMI) [Ratio] 22.7 kg/m2 22.7 k g/m2 [facility] ([facility]) [place] body weight 160 [lb_av] 160 [lb_av] MEDEN T ([facility]) Body weight 69.628 kg 69.628 kg [facility] ([facility]) Body surface area Derived from formula 1.85 m2 1.85 m2 [facility] ([facility]) Body weight 155.00 [lb_av] 155.00 [lb_av] MEDEN T ([facility]) Stated Body mass index (BMI) [Ratio] 22.9 kg/m2 22.9 k g/m2 [facility] ([facility]) [place] body weight 160 [lb_av] 160 [lb_av] MEDEN T ([facility]) Body weight 70.308 kg 70.308 kg [facility] ([facility]) Body surface area Derived from formula 1.85 m2 1.85 m2 [facility] ([facility]) Diastolic blood pressure 70 mm[Hg] 70 mm[Hg] [facility] ([facility]) Body height 69 [in_i] 69 [in_i] [facility] ([facility]) 5'9" Systolic blood pressure 150 mm[Hg] 150 mm[Hg] M EDENT ([facility]) Body weight 155 [lb_av] 155 [lb_av] eCW1 ([facility]) Body height 69 [in_i] 69 [in_i] eCW1 ([facility]) Body mass index (BMI) [Ratio] 22.89 kg/m2 22.89 kg/m2 eCW1 ([facility]) Heart rate 78 /min 78 /min eCW1 ([facility]) Respiratory rate 18 /min 18 /min eCW1 ([facility]) Body temperature 98.4 [degF] 98.4 [degF] eCW1 ( [facility]) Systolic blood pressure 109 mm[Hg] 109 mm[Hg] e CW1 ([facility]) Diastolic blood pressure 53 mm[Hg] 53 mm[Hg] eCW1 ([facility]) Systolic blood pressure 124 mm[Hg] 124 mm[Hg] M EDENT ([facility]) Diastolic blood pressure 72 mm[Hg] 72 mm[Hg] MED[facility] ([facility]) Body height 69 [in_i] 69 [in_i] [facility] ([facility]) 5'9" Body weight 145.00 [lb_av] 145.00 [lb_av] MEDEN T ([facility]) Body mass index (BMI) [Ratio] 21.4 kg/m2 21.4 k g/m2 [facility] ([facility]) [place] body weight 160 [lb_av] 160 [lb_av] MEDEN T ([facility]) Body weight 65.772 kg 65.772 kg [facility] ([facility]) Body surface area Derived from formula 1.80 m2 1.80 m2 [facility] ([facility]) Heart rate 89 /min 89 /min eCW1 ([facility]) Body weight 155 [lb_av] 155 [lb_av] eCW1 ([facility]) Body height 69 [in_i] 69 [in_i] eCW1 ([facility]) Body mass index (BMI) [Ratio] 22.89 kg/m2 22.89 kg/m2 W1 ([facility]) Respiratory rate 20 /min 20 /min eCW1 ([facility]) Body temperature 98.7 [degF] 98.7 [degF] eCW1 ( [facility]) Diastolic blood pressure 42 mm[Hg] 42 mm[Hg] eCW1 ([facility]) Systolic blood pressure 91 mm[Hg] 91 mm[Hg] e CW1 ([facility]) Systolic blood pressure 123 mm[Hg] 123 mm[Hg] [facility] Diastolic blood pressure 73 mm[Hg] 73 mm[Hg] [facility]) Body height 69 [in_i] 69 [in_i] [facility] ([facility]) 5'9" Body weight 143.00 [lb_av] 143.00 [lb_av] [facility] ([facility]) stated Body mass index (BMI) [Ratio] 21.1 kg/m2 21.1 k g/m2 [facility] ([facility]) [place] body weight 160 [lb_av] 160 [lb_av] [facility] ([facility]) Body weight 64.865 kg 64.865 kg [facility] ([facility]) Body surface area Derived from formula 1.79 m2 1.79 m2 [facility] ([facility]) Body temperature 98.3 [degF] 98.3 [degF] W1 ( [facility]) Body weight 155 [lb_av] 155 [lb_av] eCW1 ([facility]) Systolic blood pressure 136 mm[Hg] 136 mm[Hg] e CW1 ([facility]) Body height 69 [in_i] 69 [in_i] eCW1 ([facility]) Body mass index (BMI) [Ratio] 22.89 kg/m2 22.89 kg/m2 W1 ([facility]) Diastolic blood pressure 65 mm[Hg] 65 mm[Hg] eCW1 ([facility]) Heart rate 74 /min 74 /min eCW1 ([facility]) Respiratory rate 18 /min 18 /min eCW1 ([facility]) Systolic blood pressure 110 mm[Hg] 110 mm[Hg] [facility] Diastolic blood pressure 63 mm[Hg] 63 mm[Hg] MED[facility] ([facility]) Body height 69 [in_i] 69 [in_i] [facility] ([facility]) 5'9" Body weight 143.00 [lb_av] 143.00 [lb_av] [facility] T ([facility]) Body mass index (BMI) [Ratio] 21.1 kg/m2 21.1 k g/m2 [facility] ([facility]) [place] body weight 160 [lb_av] 160 [lb_av] [facility] T ([facility]) Body weight 64.865 kg 64.865 kg [facility] ([facility]) Body surface area Derived from formula 1.79 m2 1.79 m2 [facility] ([facility]) Heart rate 85 /min 85 /min [facility] ([facility]) Body height 69 [in_i] 69 [in_i] [facility] ([facility]) 5'9" [place] body weight 160 [lb_av] 160 [lb_av] MED[facility] T ([facility]) Systolic blood pressure 126 mm[Hg] 126 mm[Hg] M EDENT ([facility]) Diastolic blood pressure 61 mm[Hg] 61 mm[Hg] [facility] ([facility]) Respiratory rate 20 /min 20 /min eCW1 ([facility]) Body weight 164 [lb_av] 164 [lb_av] eCW1 ([facility]) Body temperature 97.7 [degF] 97.7 [degF] eCW1 ( [facility]) Systolic blood pressure 188 mm[Hg] 188 mm[Hg] e CW1 ([facility]) Diastolic blood pressure 78 mm[Hg] 78 mm[Hg] eCW1 ([facility]) Body height 69 [in_i] 69 [in_i] eCW1 ([facility]) Body mass index (BMI) [Ratio] 24.22 kg/m2 24.22 kg/m2 eCW1 ([facility]) Heart rate 90 /min 90 /min eCW1 ([facility]) Body weight 164 [lb_av] 164 [lb_av] eCW1 ([facility]) Body height 69 [in_i] 69 [in_i] eCW1 ([facility]) Body mass index (BMI) [Ratio] 24.22 kg/m2 24.22 kg/m2 eCW1 ([facility]) Heart rate 82 /min 82 /min eCW1 ([facility]) Respiratory rate 20 /min 20 /min eCW1 ([facility]) Body temperature 98.5 [degF] 98.5 [degF] eCW1 ( [facility]) Systolic blood pressure 107 mm[Hg] 107 mm[Hg] e CW1 ([facility]) Diastolic blood pressure 58 mm[Hg] 58 mm[Hg] eCW1 ([facility]) Respiratory rate 22 /min 22 /min eCW1 ([facility]) Body weight 168 [lb_av] 168 [lb_av] eCW1 ([facility]) Body weight kg eCW1 ([facility]) Body height 69 [in_i] 69 [in_i] eCW1 ([facility]) Body mass index (BMI) [Ratio] 24.81 kg/m2 24.81 kg/m2 eCW1 ([facility]) Body temperature 98.2 [degF] 98.2 [degF] eCW1 ( [facility]) Heart rate 88 /min 88 /min eCW1 ([facility]) Systolic blood pressure 188 mm[Hg] 188 mm[Hg] e CW1 ([facility]) Diastolic blood pressure mm[Hg] eCW1 ([facility]) Body height 69 [in_i] 69 [in_i] [facility] ([facility] 5'9" Body weight 168.00 [lb_av] 168.00 [lb_av] [facility] T ([facility] Systolic blood pressure 107 mm[Hg] 107 mm[Hg] M EDENT ([facility] Diastolic blood pressure 69 mm[Hg] 69 mm[Hg] [facility] ([facility] Heart rate 77 /min 77 /min [facility] Body mass index (BMI) [Ratio] 24.8 kg/m2 24.8 k g/m2 [facility] ([facility] Body height 69 [in_i] 69 [in_i] [facility] ([facility], ) 5'9" Diastolic blood pressure 70 mm[Hg] 70 mm[Hg] [facility] ([facility]) Systolic blood pressure 128 mm[Hg] 128 mm[Hg] [facility]) [place] body weight 160 [lb_av] 160 [lb_av] [facility] T ([facility]) Body weight 168.25 [lb_av] 168.25 [lb_av] [facility] ([facility]) Body surface area Derived from formula 1.92 m2 1.92 m2 [facility] ([facility]) Body mass index (BMI) [Ratio] 24.8 kg/m2 24.8 k g/m2 [facility] ([facility]) Body weight 76.318 kg 76.318 kg [facility] ([facility]) Body weight 168 [lb_av] 168 [lb_av] eCW1 ([facility]) Respiratory rate 18 /min 18 /min eCW1 ([facility]) Body temperature 94.6 [degF] 94.6 [degF] eCW1 ( [facility]) Systolic blood pressure 107 mm[Hg] 107 mm[Hg] e CW1 ([facility]) Diastolic blood pressure 69 mm[Hg] 69 mm[Hg] eCW1 ([facility]) Body weight kg eCW1 ([facility]) Body height 69 [in_i] 69 [in_i] eCW1 ([facility]) Body mass index (BMI) [Ratio] 24.81 kg/m2 24.81 kg/m2 eCW1 ([facility]) Heart rate 77 /min 77 /min eCW1 ([facility]) Body weight 168 [lb_av] 168 [lb_av] eCW1 ([facility]) Body weight kg eCW1 ([facility]) Body height 69 [in_i] 69 [in_i] eCW1 ([facility]) Body mass index (BMI) [Ratio] 24.81 kg/m2 24.81 kg/m2 eCW1 ([facility]) Patient Treatment Plan of Care Planned Activity Planned Date Details Description Data Source (s) Amlodipine 5 MG Oral Tablet 02/08/2021 12:00:00 AM EST eCW1 ([facility]) Bisacodyl 10 MG Rectal Suppository 12/14/2020 12:00:00 AM EDT eCW1 ([facility]) Docusate Sodium 100 MG Oral Capsule [Colace] 12/14/2020 12:00:00 AM EDT eCW1 ([facility]) Ketoconazole 20 MG/ML Topical Cream 09/16/2020 12:00:00 AM EDT eCW1 ([facility]) Ketoconazole 20 MG/ML Topical Cream 09/16/2020 12:00:00 AM EDT eCW1 ([facility]) Ketoconazole 20 MG/ML Topical Cream 09/16/2020 12:00:00 AM EDT eCW1 ([facility]) Ketoconazole 20 MG/ML Topical Cream 09/16/2020 12:00:00 AM EDT eCW1 ([facility]) Prednisone 1 MG Oral Tablet 07/27/2020 12:00:00 AM EDT eCW1 ([facility]) Prednisone 1 MG Oral Tablet 07/27/2020 12:00:00 AM EDT eCW1 ([facility]) Prednisone 1 MG Oral Tablet 07/27/2020 12:00:00 AM EDT eCW1 ([facility]) Prednisone 1 MG Oral Tablet 07/27/2020 12:00:00 AM EDT eCW1 ([facility]) Prednisone 1 MG Oral Tablet 07/27/2020 12:00:00 AM EDT eCW1 ([facility]) aripiprazole 5 MG Oral Tablet 07/06/2020 12:00:00 AM EDT eCW1 ([facility]) aripiprazole 5 MG Oral Tablet 07/06/2020 12:00:00 AM EDT eCW1 ([facility]) aripiprazole 5 MG Oral Tablet 07/06/2020 12:00:00 AM EDT eCW1 ([facility]) aripiprazole 5 MG Oral Tablet 07/06/2020 12:00:00 AM EDT eCW1 ([facility]) aripiprazole 5 MG Oral Tablet 07/06/2020 12:00:00 AM EDT eCW1 ([facility]) aripiprazole 5 MG Oral Tablet 07/06/2020 12:00:00 AM EDT eCW1 ([facility]) aripiprazole 5 MG Oral Tablet 07/06/2020 12:00:00 AM EDT eCW1 ([facility]) aripiprazole 5 MG Oral Tablet 07/06/2020 12:00:00 AM EDT eCW1 ([facility]) aripiprazole 5 MG Oral Tablet 07/06/2020 12:00:00 AM EDT eCW1 ([facility]) aripiprazole 5 MG Oral Tablet 07/06/2020 12:00:00 AM EDT eCW1 ([facility]) aripiprazole 5 MG Oral Tablet 07/06/2020 12:00:00 AM EDT eCW1 ([facility]) aripiprazole 5 MG Oral Tablet 07/06/2020 12:00:00 AM EDT eCW1 ([facility]) aripiprazole 5 MG Oral Tablet 07/06/2020 12:00:00 AM EDT eCW1 ([facility] 12:00:00 AM EST eCW1 ([facility]) Misc. Devices - 03/11/2020 12:00:00 AM EST eCW1 ([facility]) Misc. Devices - 03/11/2020 12:00:00 AM EST eCW1 ([facility]) Misc. Devices - 03/11/2020 12:00:00 AM EST eCW1 ([facility]) Misc. Devices - 03/11/2020 12:00:00 AM EST eCW1 ([facility]) Wheelchair - 02/24/2020 12:00:00 AM EST e CW1 ([facility]) Wheelchair - 02/24/2020 12:00:00 AM EST e CW1 ([facility]) Wheelchair - 02/24/2020 12:00:00 AM EST e CW1 ([facility]) Wheelchair - 02/24/2020 12:00:00 AM EST e CW1 ([facility]) Wheelchair - 02/24/2020 12:00:00 AM EST e CW1 ([facility]) Wheelchair - 02/24/2020 12:00:00 AM EST e CW1 ([facility]) Wheelchair - 02/24/2020 12:00:00 AM EST e CW1 ([facility]) Wheelchair - 02/24/2020 12:00:00 AM EST e CW1 ([facility])
[2021-03-06] MEDS ORDERED: NS 1,000 ML IV ONE (08:00)
[2021-03-06 08:16] LABS: VENOUS BASE EXCESS 1.2 (-2.0-2.0); VENOUS O2 SATURATION 64.9 % (60.0-80.0); VENOUS PARTIAL PRESSURE CO2 41.9 mmHg (38.0-50.0); VENOUS PARTIAL PRESSURE O2 34.3 mmHg (30.0-50.0); VENOUS TOTAL CO2 27.2 MEQ/L (24.0-28.0)
[2021-03-06 08:19] LABS: BASO % 0.2 % (0.0-1.0); HEMATOCRIT 25.5 % (42.0-52.0); HEMOGLOBIN 8.3 g/dl (13.5-17.5); LYMPH # 0.7 10^3/uL (1.5-5.0); LYMPH % 5.4 % (24.0-44.0); MEAN CORPUSCULAR HEMOGLOBIN 30.3 pg (27.0-33.0); MEAN CORPUSCULAR HGB CONC 32.5 g/dl (32.0-36.5); MEAN CORPUSCULAR VOLUME 93.1 fl (80.0-96.0); MONO # 1.3 10^3/uL (0.0-0.8); MONO % 10.3 % (2.0-8.0); NEUTROPHILS # 10.7 10^3/uL (1.5-8.5); NEUTROPHILS % 83.6 % (36.0-66.0); PLATELET COUNT, AUTOMATED 266 10^3/uL (150-450); RED BLOOD COUNT 2.74 10^6/uL (4.30-6.10); WHITE BLOOD COUNT 12.8 10^3/uL (4.0-10.0)
[2021-03-06] MEDS ORDERED: ONDANSETRON 4 MG ORAL DISINTEGRATING TAB PO ONE (08:35)
[2021-03-06] MEDS ORDERED: HumuLIN R (REGULAR) INSULIN (NovoLIN R) **100U/ML** PER UNIT IV ONE (08:35)
[2021-03-06 08:46] LABS: HEMOGLOBIN A1c 7.2 %
[2021-03-06 09:06] LABS: ACETONE/KETONE 17.93 MG/DL (<2.81); ALBUMIN 3.6 GM/DL (3.2-5.2); BILIRUBIN,DIRECT 0.2 MG/DL (0.0-0.2); BILIRUBIN,TOTAL 0.7 MG/DL (0.2-1.0); TOTAL PROTEIN 6.5 GM/DL (6.4-8.2)
--- OUTSIDE RECORDS SUMMARY | 2021-03-06 09:20 | CCD ---
Author Author [facility] Organization [facility] Address Unknown Phone Unavailable Care Team Providers Care Flask Carrier Name Role Phone DIDIER KEVIN MD Unavailable [...] Unavailable Wojciech, L Manuel MD Unavailable Unavailable Howell, L Manuel MD Unavailable Unavailable Howell, L Manuel MD Unavailable Unavailable Wojciech, L Manuel MD Unavailable Unavailable Wojciech, L Manuel MD Unavailable Unavailable Wojciech, L Manuel MD Unavailable Unavailable Howell, L Manuel MD Unavailable Unavailable Howell, L Manuel MD Unavailable Unavailable Howell, L Manuel MD Unavailable Unavailable Howell, L Manuel MD Unavailable Unavailable Wojciech, L Manuel MD Unavailable Unavailable Wojciech, L Manuel MD Unavailable Unavailable Howell, L Manuel MD Unavailable Unavailable Howell, L Manuel MD Unavailable Unavailable Wojciech, L Manuel MD Unavailable Unavailable Wojciech, L Manuel MD Unavailable Unavailable Wojciech, L Manuel MD Unavailable Unavailable Wojciech, L Manuel MD Unavailable Unavailable Wojciech, L Manuel MD Unavailable Unavailable Howell, L Manuel MD Unavailable Unavailable Howell, L Manuel MD Unavailable Unavailable Howell, L Manuel MD Unavailable Unavailable Wojciech, L Manuel MD Unavailable Unavailable Wojciech, L Manuel MD Unavailable Unavailable Howell, Jarvis Manuel MD Unavailable Unavailable Wojciech, L Manuel MD Unavailable Unavailable Howell, L Manuel MD Unavailable Unavailable Howell, L Maneul MD Unavailable Unavailable Howell, L Manuel MD Unavailable Unavailable Howell, L Manuel MD Unavailable Unavailable Howell, Jarvis Manuel MD Unavailable Unavailable Howell, L Manuel MD Unavailable Unavailable Howell, L Manuel MD Unavailable Unavailable Wojciech, L Manuel MD Unavailable Unavailable Howell, L Maneul MD Unavailable Unavailable Wojciech, L Manuel MD Unavailable Unavailable Howell, L Manuel MD Unavailable Unavailable Wojciech, Jarvis Manuel MD Unavailable Unavailable Wojciech, L Manuel MD Unavailable Unavailable Howell, L Manuel MD Unavailable Unavailable Howell, L Manuel MD Unavailable Unavailable Wojciech, L Manuel MD Unavailable Unavailable Wojciech, L Manuel MD Unavailable Unavailable Howell, L Manuel MD Unavailable Unavailable Howell, L Manuel MD Unavailable Unavailable Wojciech, L [...] RPA Unavailable Unavailable Ama Malagon PA Unavailable [phone] Ama Malagon PA Unavailable [phone] Ama Malagonrick PA Unavailable [phone] Ama Malagon PA Unavailable [phone] Ama Malagon PA Unavailable [phone] Ama Malagon Jose PA Unavailable [phone] Ama Malagon Jose PA Unavailable [phone] Ama Malagon PA Unavailable [phone] Ama Malagon PA Unavailable [phone] Ama Malagon Jose PA Unavailable [phone] Ama Malagon Jose PA Unavailable [phone] Ama Malagon PA Unavailable [phone] Ama Malagonrick KATERYNA Unavailable [phone] STILLERMAN, EDUARDO MD Unavailable Unavailable STILLERMAN, EDUARDO [...] is protected by Article 27-F of the [facility] Public Health law. If you continue you may have access to information: Regarding HIV / AIDS; Provided by facilities licensed or operated by the [facility] Office of Mental Health; or Provided by the [facility] Office for People With Developmental Disabilities. If such information is present, then the following [facility] mandated warning applies: This information has [...] law may result in a fine or nursing home sentence or both. A general authorization for the release of medical or other information is NOT sufficient authorization for further disc losure. Allergies and Adverse Reactions Type Description Substance Reaction Status Data Source(s ) No Known Allergies NO KNOWN MEDICATION ALLERGIES NO KNOWN MEDICA TION ALLERGIES NDOC ([facility]) Family History Family Member Name Family Member Gender Family Member Status Date o f Status Description Data Source(s) Unknown Unknown Problem MEDENT ([facility], ) father Encounters Encounter Providers Location Date Indications Data Source(s ) (MARIAM NP120) New Patient 120 Min [address] [place] [address] 03/02/2021 12:00:00 AM EST eCW1 ([facility]) Unknown [address] [facility] [address] 03/01/2021 12:00:00 AM EST eCW1 ([facility]) Unknown [address] [facility] [address] 02/21/2021 12:00:00 AM EST eCW1 ([facility]) Outpatient [address] [facility] [address] 02/18/2021 12:00:00 AM EST eCW1 ([facility]) Unknown [address] [facility] [address] 02/14/2021 12:00:00 AM EST eCW1 ([facility]) Office Visit Attender: KAREN Mcnair/Анна/Indra/Diana indl 02/03/2021 08:45:00 AM EDT MEDENT ([facility], ) Unknown [address] [facility] [address] 01/27/2021 12:00:00 AM EDT eCW1 ([facility]) Outpatient Attender: Alex Kuhn MD CPSCAORT-CPSCAEND 01/24 12:59:00 PM EDT - 01/24/2021 01:00:[address] [facility] E10.65 Patient discharged. Outpatient [address] [facility], [facility] [address] 01/21/2021 12:00:00 AM EDT [facility]1 [facility] Unknown [address] [facility] [place] [address] 01/07/2021 12:00:00 AM EDT eCW1 [facility]) Office Visit Attender: KAREN Mcnair/Анна/Indra/Re indl 01/06/2021 11:45:00 AM EDT MEDENT ([facility] Unknown [address] [facility], [place] [address] 12/31/2020 12:00:00 AM EDT eCW1 ([facility]) (TCM) Transition of Care Visit [address] [place] [address] 12/23/2020 12:00:00 AM EDT eCW1 ([facility] [place]) Unknown [address] [facility] [place] [address] 12/22/2020 12:00:00 AM EDT eCW1 [facility]) Office Visit Attender: KAREN Mcnair/Анна/Indra/Re indl 12/17/2020 01:00:00 PM EDT MEDENT ([facility]) Outpatient [address] [facility], [place] [address] 12/16/2020 12:00:00 AM EDT eCW1 ([facility]) O Attender: Alayna Sipmson MDConsultant: EDUARDO CHAU MD 12/14/2020 12:00:00 AM EDT NDOC ([facility]) Patient admitted. Unknown [address] [facility] [address] 12/14/2020 12:00:00 AM EDT eCW1 ([facility]) Outpatient Attender: Manuel Mcnair/Kent/Indra/ Reindl 11/11/2020 08:30:00 AM EDT MEDENT ([facility]) Outpatient Attender: MATT Mcnair/Kent/Indra/Reindl 11/01/2020 02:30:00 PM EDT MEDENT ([facility]) [place] [address] [facility] [address] 10/20/2020 12:00:00 AM EDT eCW1 ([facility]) Outpatient Attender: Jose LGEASONttender: Maurisio AVENDAÑO CPSCAORT-CPSCAEND 10/11/2020 10:38:00 AM EDT - 10/11/2020 10:39:00 AM ED T [address]10.65 [facility] E10.65 Patient discharged. Unknown [address] [facility] [address] 09/16/2020 12:00:00 AM EDT eCW1 ([facility]) Unknown [address] [facility] [address] 09/16/2020 12:00:00 AM EDT eCW1 ([facility]) Office Visit, Est Pt., Level 3 FC [address] [place] [address] 08/24/2020 12:00:00 AM EDT eCW1 ([facility]) Unknown [address] [facility] [address] 08/17/2020 12:00:00 AM EDT eCW1 ([facility]) Unknown [address] [facility] [address] 08/17/2020 12:00:00 AM EDT eCW1 ([facility]) Outpatient Attender: Kathy Mcnair/Анна/Indra/ Reindl 08/12/2020 11:00:00 AM EDT MEDENT ([facility] Unknown [address] [facility] [address] 08/05/2020 12:00:00 AM EDT eCW1 ([facility]) Outpatient [address] [facility] [address] 07/27/2020 12:00:00 AM EDT eCW1 ([facility]) Unknown [address] [facility] [address] 07/27/2020 12:00:00 AM EDT eCW1 ([facility]) Outpatient Attender: Alex Kuhn MD CPSCAORT-CPSCAEND 07/09 01:20:00 PM EDT - 07/09/2020 01:21:[address] [facility] E10.65 Patient discharged. Unknown [address] [facility] [address] 07/09/2020 12:00:00 AM EDT eCW1 ([facility]) Outpatient Attender: Kathy Mcnair/Анна/Indra/ Reindl 07/08/2020 11:45:00 AM EDT MEDENT ([facility] Outpatient [address] [facility] [address] 07/06/2020 12:00:00 AM EDT eCW1 ([facility] Unknown [address] [facility] [address] 07/02/2020 12:00:00 AM EDT eCW1 ([facility]) Unknown [address] [facility] [address] 06/24/2020 12:00:00 AM EDT eCW1 ([facility]) Unknown [address] [facility] [address] 06/09/2020 12:00:00 AM EST eCW1 ([facility]) Outpatient Attender: Kathy Mcnair/Анна/Indra/ Reindl 06/07/2020 12:00:00 PM EST MEDENT ([facility]) Office Visit Attender: Florencia Dumont RPA Xu/Kent/Indra/R eindl 05/27/2020 09:30:00 AM EST MEDENT ([facility]) Unknown [address] [facility] [address] 05/20/2020 12:00:00 AM EST eCW1 ([facility]) (TCM) Transition of Care Visit [address] [place] [phone] 05/13/2020 12:00:00 AM EST eCW1 ([facility]) Office Visit Attender: Florencia Dumont RPA Xu/Kent/Indra/R eindl 05/12/2020 01:00:00 PM EST MEDENT ([facility] Unknown [address] [facility] Y [address] 05/10/2020 12:00:00 AM EST eCW1 ([facility]) Unknown [address] [facility] [address] 05/10/2020 12:00:00 AM EST eCW1 ([facility]) Unknown [address] [facility] [address] 05/05/2020 12:00:00 AM EST eCW1 [facility]) TeleMedicine Phone E/M by Phys 11-20 Min [address] [place] [address] 05/05/2020 12:00:00 AM EST eCW1 ([facility]) Unknown [address] [facility] [address] 05/05/2020 12:00:00 AM EST [facility]CW1 [facility] Unknown [address] [facility] Y [address] 04/30/2020 12:00:00 AM EST eCW1 [facility]) (TCM) Transition of Care Visit [address] [place] [address] 04/29/2020 12:00:00 AM EST eCW1 ([facility]) Unknown [address] [facility] [place] [address] 04/29/2020 12:00:00 AM EST eCW1 ([facility]) Unknown [address] [facility] [address] 04/28/2020 12:00:00 AM EST eCW1 ([facility]) Unknown [address] [facility] [address] 04/26/2020 12:00:00 AM EST eCW1 ([facility]) Unknown [address] [facility] [address] 04/23/2020 12:00:00 AM EST eCW1 ([facility]) Unknown [address] [facility] [address] 04/22/2020 12:00:00 AM EST eCW1 ([facility]) Unknown [address] [facility] [address] 04/21/2020 12:00:00 AM EST eCW1 ([facility]) Office Visit Attender: Florencia Mcnair/Kent/Indra/R eindl 04/12/2020 10:45:00 AM EST MEDENT ([facility] Outpatient [address] [facility] [address] 04/06/2020 12:00:00 AM EST eCW1 ([facility]) Office Visit Attender: Florencia Mcnair/Kent/Indra/R eindl 04/05/2020 08:15:00 AM EST MEDENT ([facility] Unknown [address] [facility] [address] 03/31/2020 12:00:00 AM EST eCW1 ([facility]) Unknown [address] [facility] [address] 03/31/2020 12:00:00 AM EST eCW1 ([facility]) Unknown [address] [facility] [address] 03/29/2020 12:00:00 AM EST eCW1 ([facility] Unknown [address] [facility] [address] 03/24/2020 12:00:00 AM EST eCW1 ([facility]) Unknown [address] [facility] [address] 03/10/2020 12:00:00 AM EST eCW1 [facility]) Outpatient Attender: Alex Kuhn MD CPSCAORT-CPSCAEND 03/02 02:32:00 PM EST - 03/02/2020 02:33:[address] [facility] E10.65 Patient discharged. Unknown [address] [place] [address] 03/01/2020 12:00:00 AM EST eCW1 ([facility]) Outpatient Attender: Kathy Mcnair/Анна/Indra/ Talon 02/23/2020 12:30:00 PM EST MEDENT ([facility] ([id number]) For Template Wright [address] [place] [address] 02/23/2020 12:00:00 AM EST eCW1 ([facility]) Unknown [address] [place] [address] 02/20/2020 12:00:00 AM EST eCW1 ([facility]) Office Visit, Est Pt., Level 2 FC [address] [place] [address] 02/19/2020 12:00:00 AM EST eCW1 ([facility]) Unknown [address] [place] [phone] 02/19/2020 12:00:00 AM EST eCW1 ([facility]) Office Visit Attender: MOOSE CHAPA [facility] Office 01/31 12:00:00 PM EST MEDENT ([facility] Unknown [address] [facility] [address] 02/18/2020 12:00:00 AM EST eCW1 ([facility]) Unknown [address] [facility], [place] [address] 02/10/2020 12:00:00 AM EST eCW1 ([facility]) Outpatient [address] [facility], [place] [address] 02/09/2020 12:00:00 AM EST eCW1 ([facility]) Unknown [address] [facility] [place] [address] 02/04/2020 12:00:00 AM EST eCW1 ([facility]) Office Visit Attender: MOOSE CHAPA [facility] Office 05/2019 01:45:00 PM EST MEDENT ([facility] Unknown [address] [facility] [id number] 01/26/2020 12:00:00 AM EDT eCW1 ([facility]) Outpatient Attender: MOOSE CHAPA [facility] Office 01/01 02:30:00 PM EDT MEDENT ([facility] Outpatient Attender: Florencia Mcnair/Анна/Indra/Zeeshan mcdowell 01/20/2020 11:30:00 AM EDT MEDENT ([facility] Outpatient [address] [facility] [address] 01/19/2020 12:00:00 AM EDT eCW1 ([facility]) ([id number]) For [employer] [address] [place] [phone] 01/09/2020 12:00:00 AM EDT eCW1 ([facility]) Immunizations Vaccine Date Status Description Data Source(s) COVID-19 VACC,MRNA(MODERNA)/PF 09/06/2020 12:00:00 AM EDT completed [facility] COVID-19 VACCINE Moderna 09/06/2020 12:00:00 AM EDT completed [facility] Vaccine Series Complete: YESThis Data wa s Submitted to [facility]. COVID-19 VACC,MRNA(MODERNA)/PF 08/13/2020 12:00:00 AM EDT completed [facility] COVID-19 VACCINE Moderna 08/13/2020 12:00:00 AM EDT completed [facility] Vaccine Series Complete: NOThis Data was Submitted to [facility]. Medications Medication Brand Name Start Date Product Form Dose Route Admi nistrative Instructions Pharmacy Instructions Status Indications Reaction Description Data Source(s) Amlodipine 5 MG Oral Tablet amLODIPine Besylate 5 MG amLODIP ine Besylate 5 MG 02/08/2021 12:00:00 AM EST 1.0 {tablet} active amLODIPine Besylate 5 MG eCW1 ([facility]) Amlodipine 5 MG Oral Tablet amLODIPine Besylate 5 MG amLODIP ine Besylate 5 MG 02/08/2021 12:00:00 AM EST 1.0 {tablet} active amLODIPine Besylate 5 MG eCW1 ([facility]) Amlodipine 5 MG Oral Tablet amLODIPine Besylate 5 MG amLODIP ine Besylate 5 MG 02/08/2021 12:00:00 AM EST 1.0 {tablet} active amLODIPine Besylate 5 MG eCW1 ([facility]) Amlodipine 5 MG Oral Tablet amLODIPine Besylate 5 MG amLODIP ine Besylate 5 MG 02/08/2021 12:00:00 AM EST 1.0 {tablet} active amLODIPine Besylate 5 MG eCW1 ([facility]) Amlodipine 5 MG Oral Tablet amLODIPine Besylate 5 MG amLODIP ine Besylate 5 MG 02/08/2021 12:00:00 AM EST 1.0 {tablet} active amLODIPine Besylate 5 MG eCW1 ([facility]) Bisacodyl 10 MG Rectal Suppository Bisacodyl 10 MG 12/14/2020 12:00 :00 AM EDT 1.0 {suppository_as_needed} active Bisa codyl 10 MG eCW1 ([facility]) Docusate Sodium 100 MG Oral Capsule [Colace] Colace 100 MG C olace 100 MG 12/14/2020 12:00:00 AM EDT 1.0 {capsule_as_needed} suspended Colace 100 MG eCW1 ([facility]) Bisacodyl 10 MG Rectal Suppository Bisacodyl 10 MG 12/14/2020 12:00 :00 AM EDT 1.0 {suppository_as_needed} suspended Bi sacodyl 10 MG eCW1 ([facility]) Bisacodyl 10 MG Rectal Suppository Bisacodyl 10 MG 12/14/2020 12:00 :00 AM EDT 1.0 {suppository_as_needed} suspended Bi sacodyl 10 MG eCW1 ([facility]) Bisacodyl 10 MG Rectal Suppository Bisacodyl 10 MG 12/14/2020 12:00 :00 AM EDT 1.0 {suppository_as_needed} suspended Bi sacodyl 10 MG eCW1 ([facility]) Docusate Sodium 100 MG Oral Capsule [Colace] Colace 100 MG C olace 100 MG 12/14/2020 12:00:00 AM EDT 1.0 {capsule_as_needed} active Colace 100 MG eCW1 ([facility]) Docusate Sodium 100 MG Oral Capsule [Colace] Colace 100 MG C olace 100 MG 12/14/2020 12:00:00 AM EDT 1.0 {capsule_as_needed} suspended Colace 100 MG eCW1 ([facility]) Bisacodyl 10 MG Rectal Suppository Bisacodyl 10 MG 12/14/2020 12:00 :00 AM EDT 1.0 {suppository_as_needed} suspended Bi sacodyl 10 MG eCW1 ([facility]) Bisacodyl 10 MG Rectal Suppository Bisacodyl 10 MG 12/14/2020 12:00 :00 AM EDT 1.0 {suppository_as_needed} suspended Bi sacodyl 10 MG eCW1 ([facility]) Bisacodyl 10 MG Rectal Suppository Bisacodyl 10 MG 12/14/2020 12:00 :00 AM EDT 1.0 {suppository_as_needed} suspended Bi sacodyl 10 MG eCW1 ([facility]) Docusate Sodium 100 MG Oral Capsule [Colace] Colace 100 MG C olace 100 MG 12/14/2020 12:00:00 AM EDT 1.0 {capsule_as_needed} suspended Colace 100 MG eCW1 ([facility]) Docusate Sodium 100 MG Oral Capsule [Colace] Colace 100 MG C olace 100 MG 12/14/2020 12:00:00 AM EDT 1.0 {capsule_as_needed} suspended Colace 100 MG eCW1 ([facility]) Docusate Sodium 100 MG Oral Capsule [Colace] Colace 100 MG C olace 100 MG 12/14/2020 12:00:00 AM EDT 1.0 {capsule_as_needed} suspended Colace 100 MG eCW1 ([facility]) Docusate Sodium 100 MG Oral Capsule [Colace] Colace 100 MG C olace 100 MG 12/14/2020 12:00:00 AM EDT 1.0 {capsule_as_needed} suspended Colace 100 MG eCW1 ([facility]) Bisacodyl 10 MG Rectal Suppository Bisacodyl 10 MG 12/14/2020 12:00 :00 AM EDT 1.0 {suppository_as_needed} suspended Bi sacodyl 10 MG eCW1 ([facility]) Docusate Sodium 100 MG Oral Capsule [Colace] Colace 100 MG C olace 100 MG 12/14/2020 12:00:00 AM EDT 1.0 {capsule_as_needed} suspended Colace 100 MG eCW1 ([facility]) Docusate Sodium 100 MG Oral Capsule [Colace] Colace 100 MG C olace 100 MG 12/14/2020 12:00:00 AM EDT 1.0 {capsule_as_needed} suspended Colace 100 MG eCW1 ([facility]) Bisacodyl 10 MG Rectal Suppository Bisacodyl 10 MG 12/14/2020 12:00 :00 AM EDT 1.0 {suppository_as_needed} suspended Bi sacodyl 10 MG eCW1 ([facility]) Ketoconazole 20 MG/ML Topical Cream Ketoconazole 2 % Ketocon azole 2 % 09/16/2020 12:00:00 AM EDT suspended Keto conazole 2 % eCW1 ([facility]) Ketoconazole 20 MG/ML Topical Cream Ketoconazole 2 % Ketocon azole 2 % 09/16/2020 12:00:00 AM EDT active Ketocon azole 2 % eCW1 ([facility]) Ketoconazole 20 MG/ML Topical Cream Ketoconazole 2 % Ketocon azole 2 % 09/16/2020 12:00:00 AM EDT active Ketocon azole 2 % eCW1 ([facility]) Ketoconazole 20 MG/ML Topical Cream Ketoconazole 2 % Ketocon azole 2 % 09/16/2020 12:00:00 AM EDT suspended Keto conazole 2 % eCW1 ([facility]) Ketoconazole 20 MG/ML Topical Cream Ketoconazole 2 % Ketocon azole 2 % 09/16/2020 12:00:00 AM EDT suspended Keto conazole 2 % eCW1 ([facility]) Ketoconazole 20 MG/ML Topical Cream Ketoconazole 2 % Ketocon azole 2 % 09/16/2020 12:00:00 AM EDT suspended Keto conazole 2 % eCW1 ([facility]) Ketoconazole 20 MG/ML Topical Cream Ketoconazole 2 % Ketocon azole 2 % 09/16/2020 12:00:00 AM EDT suspended Keto conazole 2 % eCW1 ([facility]) Ketoconazole 20 MG/ML Topical Cream Ketoconazole 2 % Ketocon azole 2 % 09/16/2020 12:00:00 AM EDT suspended Keto conazole 2 % eCW1 ([facility]) Ketoconazole 20 MG/ML Topical Cream Ketoconazole 2 % Ketocon azole 2 % 09/16/2020 12:00:00 AM EDT active Ketocon azole 2 % eCW1 ([facility]) Ketoconazole 20 MG/ML Topical Cream Ketoconazole 2 % Ketocon azole 2 % 09/16/2020 12:00:00 AM EDT active Ketocon azole 2 % eCW1 ([facility]) Ketoconazole 20 MG/ML Topical Cream Ketoconazole 2 % Ketocon azole 2 % 09/16/2020 12:00:00 AM EDT suspended Keto conazole 2 % eCW1 ([facility]) Ketoconazole 20 MG/ML Topical Cream Ketoconazole 2 % Ketocon azole 2 % 09/16/2020 12:00:00 AM EDT suspended Keto conazole 2 % eCW1 ([facility]) Prednisone 1 MG Oral Tablet predniSONE 1 MG predniSONE 1 MG 07/27/2020 12:00:00 AM EDT active predniSONE 1 MG e CW1 ([facility]) Prednisone 1 MG Oral Tablet predniSONE 1 MG predniSONE 1 MG 07/27/2020 12:00:00 AM EDT active predniSONE 1 MG e CW1 ([facility]) Prednisone 1 MG Oral Tablet PredniSONE 1 MG PredniSONE 1 MG 07/27/2020 12:00:00 AM EDT active PredniSONE 1 MG e CW1 ([facility]) Prednisone 1 MG Oral Tablet predniSONE 1 MG predniSONE 1 MG 07/27/2020 12:00:00 AM EDT active predniSONE 1 MG e CW1 ([facility]) Prednisone 1 MG Oral Tablet predniSONE 1 MG predniSONE 1 MG 07/27/2020 12:00:00 AM EDT active predniSONE 1 MG e CW1 ([facility]) Prednisone 1 MG Oral Tablet PredniSONE 1 MG PredniSONE 1 MG 07/27/2020 12:00:00 AM EDT active PredniSONE 1 MG e CW1 ([facility]) Prednisone 1 MG Oral Tablet predniSONE 1 MG predniSONE 1 MG 07/27/2020 12:00:00 AM EDT active predniSONE 1 MG e CW1 ([facility]) Prednisone 1 MG Oral Tablet predniSONE 1 MG predniSONE 1 MG 07/27/2020 12:00:00 AM EDT active predniSONE 1 MG e CW1 ([facility]) Prednisone 1 MG Oral Tablet PredniSONE 1 MG PredniSONE 1 MG 07/27/2020 12:00:00 AM EDT active PredniSONE 1 MG e CW1 ([facility]) Prednisone 1 MG Oral Tablet predniSONE 1 MG predniSONE 1 MG 07/27/2020 12:00:00 AM EDT active predniSONE 1 MG e CW1 ([facility]) Prednisone 1 MG Oral Tablet PredniSONE 1 MG PredniSONE 1 MG 07/27/2020 12:00:00 AM EDT active PredniSONE 1 MG e CW1 ([facility]) Prednisone 1 MG Oral Tablet predniSONE 1 MG predniSONE 1 MG 07/27/2020 12:00:00 AM EDT active predniSONE 1 MG e CW1 ([facility]) Prednisone 1 MG Oral Tablet predniSONE 1 MG predniSONE 1 MG 07/27/2020 12:00:00 AM EDT active predniSONE 1 MG e CW1 ([facility]) Prednisone 1 MG Oral Tablet predniSONE 1 MG predniSONE 1 MG 07/27/2020 12:00:00 AM EDT active predniSONE 1 MG e CW1 ([facility]) Prednisone 1 MG Oral Tablet predniSONE 1 MG predniSONE 1 MG 07/27/2020 12:00:00 AM EDT active predniSONE 1 MG e CW1 ([facility]) Prednisone 1 MG Oral Tablet PredniSONE 1 MG PredniSONE 1 MG 07/27/2020 12:00:00 AM EDT active PredniSONE 1 MG e CW1 ([facility]) Prednisone 1 MG Oral Tablet PredniSONE 1 MG PredniSONE 1 MG 07/27/2020 12:00:00 AM EDT active PredniSONE 1 MG e CW1 ([facility]) Prednisone 1 MG Oral Tablet predniSONE 1 MG predniSONE 1 MG 07/27/2020 12:00:00 AM EDT active predniSONE 1 MG e CW1 ([facility]) aripiprazole 5 MG Oral Tablet Aripiprazole 5 MG Aripiprazole 5 MG 07/06/2020 12:00:00 AM EDT 1.0 {tablet} active Ar ipiprazole 5 MG eCW1 ([facility]) aripiprazole 5 MG Oral Tablet ARIPiprazole 5 MG ARIPiprazole 5 MG 07/06/2020 12:00:00 AM EDT 1.0 {tablet} active AR IPiprazole 5 MG eCW1 ([facility]) aripiprazole 5 MG Oral Tablet ARIPiprazole 5 MG ARIPiprazole 5 MG 07/06/2020 12:00:00 AM EDT 1.0 {tablet} active AR IPiprazole 5 MG eCW1 ([facility]) aripiprazole 5 MG Oral Tablet Aripiprazole 5 MG Aripiprazole 5 MG 07/06/2020 12:00:00 AM EDT 1.0 {tablet} active Ar ipiprazole 5 MG eCW1 ([facility]) aripiprazole 5 MG Oral Tablet Aripiprazole 5 MG Aripiprazole 5 MG 07/06/2020 12:00:00 AM EDT 1.0 {tablet} active Ar ipiprazole 5 MG eCW1 ([facility]) aripiprazole 5 MG Oral Tablet ARIPiprazole 5 MG ARIPiprazole 5 MG 07/06/2020 12:00:00 AM EDT 1.0 {tablet} active AR IPiprazole 5 MG eCW1 ([facility]) aripiprazole 5 MG Oral Tablet ARIPiprazole 5 MG ARIPiprazole 5 MG 07/06/2020 12:00:00 AM EDT 1.0 {tablet} active AR IPiprazole 5 MG eCW1 ([facility]) aripiprazole 5 MG Oral Tablet Aripiprazole 5 MG Aripiprazole 5 MG 07/06/2020 12:00:00 AM EDT 1.0 {tablet} active Ar ipiprazole 5 MG eCW1 ([facility]) aripiprazole 5 MG Oral Tablet ARIPiprazole 5 MG ARIPiprazole 5 MG 07/06/2020 12:00:00 AM EDT 1.0 {tablet} active AR IPiprazole 5 MG eCW1 ([facility]) aripiprazole 5 MG Oral Tablet ARIPiprazole 5 MG ARIPiprazole 5 MG 07/06/2020 12:00:00 AM EDT 1.0 {tablet} active AR IPiprazole 5 MG eCW1 ([facility]) aripiprazole 5 MG Oral Tablet Aripiprazole 5 MG Aripiprazole 5 MG 07/06/2020 12:00:00 AM EDT 1.0 {tablet} active Ar ipiprazole 5 MG eCW1 ([facility]) aripiprazole 5 MG Oral Tablet Aripiprazole 5 MG Aripiprazole 5 MG 07/06/2020 12:00:00 AM EDT 1.0 {tablet} active Ar ipiprazole 5 MG eCW1 ([facility]) aripiprazole 5 MG Oral Tablet ARIPiprazole 5 MG ARIPiprazole 5 MG 07/06/2020 12:00:00 AM EDT 1.0 {tablet} active AR IPiprazole 5 MG eCW1 ([facility]) aripiprazole 5 MG Oral Tablet Aripiprazole 5 MG Aripiprazole 5 MG 07/06/2020 12:00:00 AM EDT 1.0 {tablet} active Ar ipiprazole 5 MG eCW1 ([facility]) aripiprazole 5 MG Oral Tablet ARIPiprazole 5 MG ARIPiprazole 5 MG 07/06/2020 12:00:00 AM EDT 1.0 {tablet} active AR IPiprazole 5 MG eCW1 ([facility]) aripiprazole 5 MG Oral Tablet ARIPiprazole 5 MG ARIPiprazole 5 MG 07/06/2020 12:00:00 AM EDT 1.0 {tablet} active AR IPiprazole 5 MG eCW1 ([facility]) aripiprazole 5 MG Oral Tablet ARIPiprazole 5 MG ARIPiprazole 5 MG 07/06/2020 12:00:00 AM EDT 1.0 {tablet} active AR IPiprazole 5 MG eCW1 ([facility]) aripiprazole 5 MG Oral Tablet ARIPiprazole 5 MG ARIPiprazole 5 MG 07/06/2020 12:00:00 AM EDT 1.0 {tablet} active AR IPiprazole 5 MG eCW1 ([facility]) aripiprazole 5 MG Oral Tablet ARIPiprazole 5 MG ARIPiprazole 5 MG 07/06/2020 12:00:00 AM EDT 1.0 {tablet} active AR IPiprazole 5 MG eCW1 ([facility]) aripiprazole 5 MG Oral Tablet ARIPiprazole 5 MG ARIPiprazole 5 MG 07/06/2020 12:00:00 AM EDT 1.0 {tablet} active AR IPiprazole 5 MG eCW1 ([facility]) aripiprazole 5 MG Oral Tablet ARIPiprazole 5 MG ARIPiprazole 5 MG 07/06/2020 12:00:00 AM EDT 1.0 {tablet} active AR IPiprazole 5 MG eCW1 ([facility]) aripiprazole 5 MG Oral Tablet ARIPiprazole 5 MG ARIPiprazole 5 MG 07/06/2020 12:00:00 AM EDT 1.0 {tablet} active AR IPiprazole 5 MG eCW1 ([facility]) aripiprazole 5 MG Oral Tablet Aripiprazole 5 MG Aripiprazole 5 MG 07/06/2020 12:00:00 AM EDT 1.0 {tablet} active Ar ipiprazole 5 MG eCW1 ([facility]) aripiprazole 5 MG Oral Tablet Aripiprazole 5 MG Aripiprazole 5 MG 07/06/2020 12:00:00 AM EDT 1.0 {tablet} active Ar ipiprazole 5 MG eCW1 ([facility]) aripiprazole 5 MG Oral Tablet ARIPiprazole 5 MG ARIPiprazole 5 MG 07/06/2020 12:00:00 AM EDT 1.0 {tablet} active AR IPiprazole 5 MG eCW1 ([facility]) Cephalexin 500 MG Oral Capsule Cephalexin 05/27/2020 12:00:00 AM EST ORAL completed MEDENT ([facility]) Cephalexin 500 MG Oral Capsule [Keflex] Keflex 04/12/2020 12:00:0 0 AM EST ORAL completed MEDENT ([facility]) Misc. Devices - UNK 03/11/2020 12:00:00 AM EST active Misc. Devices - eCW1 ([facility]) Misc. Devices - UNK 03/11/2020 12:00:00 AM EST active Misc. Devices - eCW1 ([facility]) Misc. Devices - UNK 03/11/2020 12:00:00 AM EST active Misc. Devices - eCW1 ([facility]) Misc. Devices - UNK 03/11/2020 12:00:00 AM EST active Misc. Devices - eCW1 ([facility]) Misc. Devices - UNK 03/11/2020 12:00:00 AM EST active Misc. Devices - eCW1 ([facility]) Misc. Devices - UNK 03/11/2020 12:00:00 AM EST active Misc. Devices - eCW1 ([facility]) Misc. Devices - UNK 03/11/2020 12:00:00 AM EST active Misc. Devices - eCW1 ([facility]) Misc. Devices - UNK 03/11/2020 12:00:00 AM EST active Misc. Devices - eCW1 ([facility]) Misc. Devices - UNK 03/11/2020 12:00:00 AM EST active Misc. Devices - eCW1 ([facility]) Misc. Devices - UNK 03/11/2020 12:00:00 AM EST active Misc. Devices - eCW1 ([facility]) Misc. Devices - UNK 03/11/2020 12:00:00 AM EST active Misc. Devices - eCW1 ([facility]) Misc. Devices - UNK 03/11/2020 12:00:00 AM EST active Misc. Devices - eCW1 ([facility]) Misc. Devices - UNK 03/11/2020 12:00:00 AM EST active Misc. Devices - eCW1 ([facility]) Misc. Devices - UNK 03/11/2020 12:00:00 AM EST active Misc. Devices - eCW1 ([facility]) Misc. Devices - UNK 03/11/2020 12:00:00 AM EST active Misc. Devices - eCW1 ([facility]) Misc. Devices - UNK 03/11/2020 12:00:00 AM EST active Misc. Devices - eCW1 ([facility]) Misc. Devices - UNK 03/11/2020 12:00:00 AM EST active Misc. Devices - eCW1 ([facility]) Misc. Devices - UNK 03/11/2020 12:00:00 AM EST active Misc. Devices - eCW1 ([facility]) Misc. Devices - UNK 03/11/2020 12:00:00 AM EST active Misc. Devices - eCW1 ([facility]) Misc. Devices - UNK 03/11/2020 12:00:00 AM EST active Misc. Devices - eCW1 ([facility]) Wheelchair - Wheelchair - 02/24/2020 12:00:00 AM EST active Wheelchair - eCW1 ([facility]) Wheelchair - Wheelchair - 02/24/2020 12:00:00 AM EST active Wheelchair - eCW1 ([facility]) Wheelchair - Wheelchair - 02/24/2020 12:00:00 AM EST active Wheelchair - eCW1 ([facility]) Wheelchair - Wheelchair - 02/24/2020 12:00:00 AM EST active Wheelchair - eCW1 ([facility]) Wheelchair - Wheelchair - 02/24/2020 12:00:00 AM EST active Wheelchair - eCW1 ([facility]) Wheelchair - Wheelchair - 02/24/2020 12:00:00 AM EST active Wheelchair - eCW1 ([facility]) Wheelchair - Wheelchair - 02/24/2020 12:00:00 AM EST active Wheelchair - eCW1 ([facility]) Wheelchair - Wheelchair - 02/24/2020 12:00:00 AM EST active Wheelchair - eCW1 ([facility]) Wheelchair - Wheelchair - 02/24/2020 12:00:00 AM EST active Wheelchair - eCW1 ([facility]) Wheelchair - Wheelchair - 02/24/2020 12:00:00 AM EST active Wheelchair - eCW1 ([facility]) Wheelchair - Wheelchair - 02/24/2020 12:00:00 AM EST active Wheelchair - eCW1 ([facility]) Wheelchair - Wheelchair - 02/24/2020 12:00:00 AM EST active Wheelchair - eCW1 ([facility]) Wheelchair - Wheelchair - 02/24/2020 12:00:00 AM EST active Wheelchair - eCW1 ([facility]) Wheelchair - Wheelchair - 02/24/2020 12:00:00 AM EST active Wheelchair - eCW1 ([facility]) Wheelchair - Wheelchair - 02/24/2020 12:00:00 AM EST active Wheelchair - eCW1 ([facility]) Wheelchair - Wheelchair - 02/24/2020 12:00:00 AM EST active Wheelchair - eCW1 ([facility]) Wheelchair - Wheelchair - 02/24/2020 12:00:00 AM EST active Wheelchair - eCW1 ([facility]) Wheelchair - Wheelchair - 02/24/2020 12:00:00 AM EST active Wheelchair - eCW1 ([facility]) Wheelchair - Wheelchair - 02/24/2020 12:00:00 AM EST active Wheelchair - eCW1 ([facility]) Wheelchair - Wheelchair - 02/24/2020 12:00:00 AM EST active Wheelchair - eCW1 ([facility]) Wheelchair - Wheelchair - 02/24/2020 12:00:00 AM EST active Wheelchair - eCW1 ([facility]) Wheelchair - Wheelchair - 02/24/2020 12:00:00 AM EST active Wheelchair - eCW1 ([facility]) Wheelchair - Wheelchair - 02/24/2020 12:00:00 AM EST active Wheelchair - eCW1 ([facility]) Cephalexin 500 MG Oral Capsule Cephalexin 02/02/2020 12:00:00 AM EST ORAL active MEDENT ([facility] tramadol hydrochloride 50 MG Oral Tablet Tramadol HCL 02/02/2020 12:00:00 AM EST active MEDENT ([facility] Insurance Providers Payer name Policy type / Coverage type Policy ID Covered green party ID Covered green party's relationship to wright Policy Wright Plan Information MEDICARE [id number] SELF [id number] A [employer] RHONDA UNAVAILABLE SELF UNAVAILABLE MEDICARE PART A [id number] Patient [id number] [employer] RHONDA [id number] SELF [id number] PERSONAL PAY UNAVAILABLE SELF UNAVA ILABLE MEDICARE [id number] SP [id number] A MEDICARE A [id number] Self [id number] A MEDICARE [id number] SP [id number] A MEDICAID M [id number] Self [id number] MEDICAID [id number] SP [id number] [place] [id number] SP [id number] [facility]ED[place] [id number] SP [id number] MEDICAID [id number] SP [id number] [facility] MEDICARE [id number] S [id number] [facility] [id number] SP [id number] MEDICARE COMPLETE [id number] SP [id number] WELLCARE [id number] SP [id number] WELLCARE [id number] SP [id number] WELLCARE O [id number] S [id number] WELLCARE [id number] S [id number] WELLCARE O [id number] S [id number] MEDICARE [id number] SP [id number] MEDICAID [id number] SP [id number] MEDICARE C [id number] S [id number] WELLCARE [id number] S [id number] [id number] MEDICARE [id number] S [id number] WELLCARE [id number] S [id number] MEDICARE -RECURRING [id number] 18 [id number] MEDICAID -RECURRING [id number] ANSI-Medicaid [id number] ANSI-Medicare Part B [id number] ANSI-Medicaid [id number] ANSI-Medicare Part B [id number] ANSI-Medicare Part B [id number] ANSI-Medicaid [id number] ANSI-Medicare Part B [id number] ANSI-Medicaid [id number] ANSI-Medicaid [id number] ANSI-Medicare Part B [id number] ANSI-Medicaid [id number] ANSI-Medicare Part B [id number] ANSI-Medicaid [id number] ANSI-Medicare Part B [id number] ANSI-Medicaid [id number] ANSI-Medicare Part B [id number] ANSI-Medicare Part B [id number] ANSI-Medicaid [id number] ANSI-Medicare Part B [id number] ANSI-Medicaid [id number] ANSI-Medicare Part B [id number] ANSI-Medicaid [id number] ANSI-Medicare Part B [id number] ANSI-Medicaid [id number] ANSI-Medicaid [id number] ANSI-Medicare Part B [id number] ANSI-Medicare Part B [id number] ANSI-Medicaid [id number] MEDICARE -RECURRING [id number] ANSI-Medicaid [id number] ANSI-Medicare Part B [id number] ANSI-Medicaid [id number] ANSI-Medicare Part B [id number] ANSI-Medicare Part B [id number] ANSI-Medicaid [id number] Medicaid [place] Medigap Part B [id number] Self [id number] Medicare [facility] Medicare Primary [id number] Self [id number] ANSI-Medicare Part B [id number] ANSI-Medicaid [id number] ANSI-Medicaid [id number] ANSI-Medicare Part B [id number] ANSI-Medicaid [id number] ANSI-Medicare Part B [id number] ANSI-Medicare Part B [id number] ANSI-Medicaid [id number] ANSI-Medicare Part B [id number] ANSI-Medicaid [id number] MEDICARE [id number] ANSI-Medicare Part B [id number] ANSI-Medicaid [id number] ANSI-Medicaid [id number] ANSI-Medicare Part B [id number] ANSI-Medicare Part B [id number] ANSI-Medicaid [id number] ANSI-Medicaid [id number] ANSI-Medicare Part B [id number] ANSI-Medicaid [id number] ANSI-Medicare Part B [id number] ANSI-Medicare Part B [id number] ANSI-Medicaid [id number] ANSI-Medicaid [id number] ANSI-Medicare Part B [id number] ANSI-Medicaid [id number] ANSI-Medicare Part B [id number] ANSI-Medicaid [id number] ANSI-Medicare Part B [id number] ANSI-Medicaid [id number] ANSI-Medicare Part B [id number] ANSI-Medicaid [id number] ANSI-Medicare Part B [id number] ANSI-Medicare Part B [id number] ANSI-Medicaid [id number] ANSI-Medicare Part B [id number] ANSI-Medicaid [id number] MEDICARE C [id number] S [id number] A [place] MED[place] PART B C [id number] S [id number] Medicaid [place] Med[place] Part B [id number] Self [id number] Medicare [place] Primary [id number] Self [id number] [facility] [place] [facility] C [id number] S [id number] [place] [id number] Self [id number] Medicare [facility] Medicare Primary [id number] Self [id number] [place] [id number] Self [id number] Medicare [facility] Medicare Primary [id number] Self [id number] MEDICAID [id number] SP [id number] MEDICAID [id number] SP [id number] MEDICAID -O/P [id number] MEDICARE -O/P [id number] OTHER WORKERS COMPENSATION [id number] SP [id number] MEDICAID -CLINIC [id number] MEDICARE -CLINIC [id number] WORKMANS COMPENSATION -O/ [id number] 18 [id number] MEDICAID -PHYSICIAN [id number] WORKMANS COMPENSATION -O/P [id number] 18 [id number] MEDICARE -PHYSICIAN [id number] 18 [id number] [facility] MEDICAID [id number] SP [id number] MEDICARE COMPLETE [id number] SP [id number] MEDICARE COMPLETE [id number] SP [id number] MEDICARE COMPLETE [id number] SP [id number] [facility] MEDICARE [id number] S [id number] MEDICAID [id number] S [id number] [facility] [id number] SP [id number] MEDICARE [id number] SP [id number] WELLCARE [id number] SP [id number] MEDICARE [id number] SP [id number] [facility] [id number] SP [id number] MEDICARE COMPLETE-[facility] O [id number] S [id number] MEDICAID [id number] S [id number] MEDICARE COMPLETE-U[employer] O [id number] S [id number] Problems, Conditions, and Diagnoses Code Display Name Description Problem Type Effective Dates Data Source(s) Z79.4 terminal clerk (current) use of insulin [facility] (CU RRENT) USE OF INSULIN Diagnosis 01/24/2021 12:59:[address] [facility] Z96.41 Presence of insulin pump (external) (int ernal) PRESENCE OF INSULIN PUMP (EXTERNAL) (INTERNAL) Diagnosis 01/24/2021 12:59:00 PM EDT [facility] E10.65 Type 1 diabetes mellitus with hyperglyce sera TYPE 1 DIABETES MELLITUS WITH HYPERGLYCEMIA Diagnosis 01/24/2021 12:59:00 PM EDT [facility] Z87.891 Personal history of nicotine dependence Personal history of nicotine dependence Diagnosis 12/14/2020 12:00:00 AM EDT [facility] ([facility]) Z86.16 Z86.16 Personal history of COVID-19 Diagnosis 021 12:00:00 AM EDT [facility] ([facility]) 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 Diagnosis 12/14/2020 12:00:00 AM EDT [facility] ([facility]) Z79.01 terminal clerk (current) use of anticoagulant s [facility] (current) use of anticoagulants Diagnosis 12/14/2020 12:00:00 AM EDT [facility] ([facility]) Z79.82 terminal clerk (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 terminal clerk (cu rrent) use of aspirin Diagnosis 12/14/2020 12:00:00 AM EDT [facility] ([facility] ) E10.319 Type 1 diabetes mellitus wit h unspecified diabetic retinopathy without macular edema Type 1 diabetes mellitus with unspecifie d diabetic retinopathy without macular edema Diagnosis 12/14/2020 12:00:00 AM EDT [facility] ([facility]) M31.6 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 Diagnosis 12/14/2020 12:00:00 AM EDT [facility] ([facility]) E78.5 Hyperlipidemia, unspecified Hyperlipidemia, unspecifie d Diagnosis 12/14/2020 12:00:00 AM EDT [facility] ([facility]) G43.909 Migraine, unspecified, not intractable, without status migrainosus Migraine, unspecified, not intractable, without status migrainosus Diagnosis 12/14/2020 12:00:00 AM EDT [facility] ([facility]) E27.40 Unspecified adrenocortical insufficiency Unspecified adrenocortical insufficiency Diagnosis 12/14/2020 12:00:00 AM EDT [facility] ([facility]) M06.9 Rheumatoid arthritis, unspecified Rheumatoid art hritis, unspecified Diagnosis 12/14/2020 12:00:00 AM EDT [facility] [facility] N40.1 Benign prostatic hyperplasia with lower urinary tract symptoms Benign prostatic hyperplasia with lower urinary tract symptoms Diagnosis 12/14/2020 12:00:00 AM EDT NDOC ([facility]) L40.9 Psoriasis, unspecified Psoriasis, unspecified Diagnosi s 12/14/2020 12:00:00 AM EDT NDOC ([facility]) R11.2 Nausea with vomiting, unspecified Nausea with vo miting, unspecified Diagnosis 12/14/2020 12:00:00 AM EDT NDOC ([facility] ) T40.7X1D Poisoning by cannabis (deriv atives), accidental (unintentional), subsequent encounter Poisoning by cannabis (derivatives), acc idental (unintentional), subsequent encounter Diagnosis 12/14/2020 12:00:00 AM EDT NDOC ([facility]) E10.43 Type 1 diabetes mellitus with diabetic a utonomic (poly)neuropathy Type 1 diabetes mellitus with diabetic autonomic (poly)neuropathy Diagnosis 12/14/2020 12:00:00 AM EDT NDOC ([facility]) E10.21 Type 1 diabetes mellitus with 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 Diagnosis 12/14/2020 12:00:00 AM ED T NDOC ([facility]) E10.42 Type 1 diabetes mellitus with diabetic p olyneuropathy Type 1 diabetes mellitus with diabetic polyneuropathy Diagnosis 12/14/2020 12:00:00 AM EDT NDOC ([facility]) E10.51 Type 1 diabetes mellitus wit h diabetic peripheral angiopathy without gangrene Type 1 diabetes mellitus with diabetic p eripheral angiopathy without gangrene Diagnosis 12/14/2020 12:00:00 AM EDT NDOC ([facility]) Z89.512 Acquired absence of left leg below knee Acquired absence of left leg below knee Diagnosis 12/14/2020 12:00:00 AM EDT NDOC ([facility]) M86.9 Osteomyelitis, unspecified Osteomyelitis, unspecified Diagnosis 12/14/2020 12:00:00 AM EDT NDOC ([facility]) E10.69 Type 1 diabetes mellitus with other spec ified complication Type 1 diabetes mellitus with other specified complication Diagnosis 12:00:00 AM EDT NDOC ([facility]) T87.43 Infection of amputation stump, right low er extremity Infection of amputation stump, right lower extremity Diagnosis 12/14/2020 12:00:00 AM EDT NDOC ([facility]) T87.89 Other complications of amputation stump Other complications of amputation stump Diagnosis 12/14/2020 12:00:00 AM EDT ND ([facility]) S88.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 S88.911A Complete traumatic amputatio n of right lower leg, level unspecified, initial encounter COMPLETE TRAUMATIC AMPUTATION OF R LOW LEG, LEVEL UNSP , INIT Diagnosis 10/11/2020 10:38:[address] [facility] E78.5 Hyperlipidemia, unspecified HYPERLIPIDEMIA, UNSPECIFIE D Diagnosis 10/11/2020 10:38:[address] [facility] E27.40 Unspecified adrenocortical insufficiency UNSPECIFIED ADRENOCORTICAL INSUFFICIENCY Diagnosis 10/11/2020 10:38:00 AM EDT [facility] T87.89 [id number] Non-healing amputation site Problem 03/02/20 21 12:00:00 AM EST eCW1 ([facility]) T81.30XA Wound dehiscence Wound dehiscence Problem 03/02/2021 12 :00:00 AM EST eCW1 ([facility]) M86.9 [id number] Osteomyelitis, lower leg Problem 02/21/2021 12:00:00 AM EST eCW1 ([facility]) M86.9 [id number] Osteomyelitis of other site, unspecified type Problem 01/07/2021 12:00:00 AM EDT eCW1 ([facility]) E16.1 Hypoglycemia Hypoglycemia Problem 01/06/2021 12:00:00 A M EDT MEDENT ([facility], ) E11.59 Peripheral vascular disorder due to diab etes mellitus Peripheral vascular disorder due to diabetes mellitus Problem 01/06/2021 12:00:00 AM ED T MEDENT ([facility], ) T81.30xA Traumatic wound dehiscence Traumatic wound dehiscence Problem 12/17/2020 12:00:00 AM EDT MEDENT ([facility], ) 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 Problem 12/17/2020 12:00:00 AM EDT MEDENT ([facility], ) D61.818 [id number] Pancytopenia Problem 12/16/2020 12:00:00 AM EDT eCW1 ([facility]) S88.111A [id number] Below-knee amputation of right lower extr emity Problem 04/06/2020 12:00:00 AM EST eCW1 ([facility]) Z89.511 [id number] Acquired absence of right leg below knee Problem 03/11/2020 12:00:00 AM EST eCW1 ([facility]) Z89.512 [id number] 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 Problem 03/11/2020 12:00:00 AM EST eCW1 ([facility]) S88.119A [id number] Amputation below knee Problem 02/24/2020 12: 00:00 AM EST eCW1 ([facility]) M86.9 [id number] Osteomyelitis of right foot, unspecif ied type Problem 02/19/2020 12:00:00 AM EST eCW1 ([facility]) [id number] O/E - Amputated left below knee O/E - Amputated left below knee Problem 01/26/2020 12:00:00 AM EDT [facility] ([facility] [id number] Pain in limb Pain in limb Problem 01/26/2020 12:00:00 A M EDT [facility] ([facility] [id number] Gangrenous disorder Gangrenous disorder Problem 1 12:00:00 AM EDT [facility] ([facility] [id number] Pressure ulcer of right foot stage 4 Pre ssure ulcer of right foot stage 4 Problem 01/26/2020 12:00:00 AM EDT [facility] ([facility] [id number] Type 2 diabetes mellitus with ulcer Type 2 diabetes mellitus with ulcer Problem 01/26/2020 12:00:00 AM EDT [facility] ([facility] Surgeries/Procedures Procedure Description Date Indications Data Source(s) Medication: Silver Nitrate Stick topically 03/02/2021 12:00:00 AM EST eCW1 ([facility]) FINE NEEDLE ASPIRATION W/O IMAGING GUIDANCE 03/02/2021 12:00:00 AM EST eC ([facility]) Hospital outpatient clinic visit for assessment and ma nagement of a patient Hospital Outpatient Clinic Visit 01/24/2021 12:00:00 AM [facility] GLUC BLD GLUC MNTR DEV CLEARED FDA SPEC HOME USE GLUCOSE BLO OD TEST 01/24/2021 12:00:00 AM [facility] COLLECTION VENOUS BLOOD VENIPUNCTURE ROUTINE VENIPUNCTURE 12:00:00 AM [facility] HEMOGLOBIN GLYCOSYLATED A1C GLYCOSYLATED HEMOGLOBIN TEST 12:00:00 AM [facility] LIPID PANEL LIPID PANEL 01/24/2021 12:00:00 AM [facility] BASIC METABOLIC PANEL CALCIUM TOTAL METABOLIC PANEL TOTAL CA 01/24/2021 12:00:00 AM [facility] Debridement Skin, Subcutaneous Tissue & Muscle 12:00:00 AM EDT MEDENT ([facility], ) OFFICE OUTPATIENT VISIT 15 MINUTES 01/06/2021 12:00:00 AM EDT MEDENT ([facility]) AMP LEG THRU TIBIA&FIBULA RE-AMPUTATION 12/08/2020 12: 00:00 AM EDT MEDENT ([facility]) OFFICE OUTPATIENT VISIT 15 MINUTES 11/11/2020 12:00:00 AM EDT MEDENT ([facility]) OFFICE OUTPATIENT VISIT 15 MINUTES 11/01/2020 12:00:00 AM EDT MEDENT ([facility]) COMPREHENSIVE METABOLIC PANEL COMPREHEN METABOLIC PANEL 09/30 12:00:00 AM [facility] OFFICE OUTPATIENT VISIT 15 MINUTES 08/12/2020 12:00:00 AM EDT MEDENT ([facility]) OFFICE OUTPATIENT VISIT 15 MINUTES 07/08/2020 12:00:00 AM EDT MEDENT ([facility]) OFFICE OUTPATIENT VISIT 15 MINUTES 06/07/2020 12:00:00 AM EST MEDENT ([facility]) Amputation Below Knee 03/03/2020 12:00:00 AM EST MEDENT ([facility]) FINE NEEDLE ASPIRATION W/O IMAGING GUIDANCE 02/23/2020 12:00:00 AM EST eCW1 ([facility]) Amputation Metatarsal W/Toe 01/28/2020 12:00:00 AM EDT [facility] ([facility] FINE NEEDLE ASPIRATION W/O IMAGING GUIDANCE 01/19/2020 12:00:00 AM EDT eCW1 ([facility]) FINE NEEDLE ASPIRATION W/O IMAGING GUIDANCE 01/09/2020 12:00:00 AM EDT eCW1 ([facility]) Results ID Date Data Source [id number] 02/11/2021 10:15:00 PM EST [facility] Name Value Range Interpretation Code Description Data Mireille rce(s) Supporting Document(s) SARS coronavirus 2 RNA [Presence] in Res piratory specimen by DAILY with probe detection NEGATIVE [facility] This lab was ordered by [facility] a nd reported by [facility]. ID Date Data Source [id number] 01/24/2021 05:41:00 PM EDT [facility] Name Value Range Interpretation Code Description Data Mireille rce(s) Supporting Document(s) Hemoglobin A1C % Less than 5.7% Above high normal [facility] HBA1C: Normal: Less than 5.7% Prediabetes: 5.7% to 6.4% Diabetes: 6.5% or higher HA1C % vs Estimated Average Glucose (eAG) % eAG % eAG 6% 126 mg/dL 10% 240 mg/dL 7% 154 mg/dL 11% 269 mg/dL 8% 183 mg/dL 12% 298 mg/dL 9% 212 mg/dL Reference: [place] [employer], 2017 ID Date Data Source [id number] 01/24/2021 05:34:00 PM EDT [facility] Name Value Range Interpretation Code Description Data [facility] rce(s) Supporting Document(s) Sodium 137 mmol/L 137-145 Normal (applies to non-numeric resul ts) [facility] Potassium 3.5-5.1 Normal (applies to non-numeric resul ts) [facility] Chloride 107 mmol/L 98-112 Normal (applies to non-numeric resul ts) [facility] Carbon Dioxide CO2 22.0-33.0 Normal (applies to non-numer ic results) [facility] Anion Gap 4.0-11.0 Normal (applies to non-numeric resul ts) [facility] BUN 16 mg/dL 9-20 Normal (applies to non-numeric resul ts) [facility] Creatinine 0.80-1.50 Normal (applies to non-numeric resul ts) [facility] GFR 55 mL/min >60 Below low normal [facility] Result based on MDRD formula. Glucose Level 107 mg/dL 74-99 Above high normal [facility] The reference range is only applicable w hen fasting. Calcium-Uncorrected 8.4-10.2 Normal (applies to non-nume nelson results) [facility] Corrected Calcium 8.4-10.2 Normal (applies to non-numeri c results) [facility] ID Date Data Source [id number] 01/24/2021 05:34:00 PM EDT [facility] Name Value Range Interpretation Code Description Data Mireilel rce(s) Supporting Document(s) Triglycerides 52 mg/dL 0-150 Normal (applies to non-numeric re sults) [facility] Cholesterol 119 mg/dL 0-200 Normal (applies to non-numeric resu lts) [facility] LDL Cholesterol,Direct 50 mg/dL <100 Normal (applies to non-n umeric results) [facility] LDL Interpretative Data Optimal <100 (mg/dL) Near optimal 100-129 (mg/dL) Borderline High 130-159 (mg/dL) High 160-189 (mg/dL) Very High >190 (mg/dL) HDL Cholesterol 63 mg/dL 40-[address] [facility] CHOL/HDL Ratio Normal (applies to non-numeric r esults) [facility] NATIONAL CHOLESTEROL GUIDEL LIZ NATIONAL [...] Average 13.5 11.0 ID Date Data Source [id number] 01/10/2021 06:21:00 AM EDT [facility] Name Value Range Interpretation Code Description Data Mireille rce(s) Supporting Document(s) SARS coronavirus 2 RNA [Presence] in Res piratory specimen by DAILY with probe detection NEGATIVE [facility] This lab was ordered by [facility] a nd reported by [facility]. ID Date Data Source [id number] 01/02/2021 02:12:00 PM EDT [facility] Name Value Range Interpretation Code Description Data Mireille rce(s) Supporting Document(s) SARS-CoV-2 (COVID 19) NEGATIVE - SARS-CoV-2 (COVID19) [facility] This lab was ordered by [facility] a nd reported by [facility]. ID Date Data Source [id number] 12/19/2020 11:07:00 PM EDT [facility] Name Value Range Interpretation Code Description Data Mireille rce(s) Supporting Document(s) SARS coronavirus 2 RNA [Presence] in Res piratory specimen by DAILY with probe detection NEGATIVE [facility] This lab was ordered by [facility] a nd reported by [facility]. ID Date Data Source [id number] 12/06/2020 12:21:00 AM EDT [facility] Name Value Range Interpretation Code Description Data Mireille rce(s) Supporting Document(s) SARS coronavirus 2 RNA [Presence] in Res piratory specimen by DAILY with probe detection NEGATIVE [facility] This lab was ordered by [facility] a nd reported by [facility]. ID Date Data Source [id number] 10/11/2020 01:58:00 PM EDT [facility] Name Value Range Interpretation Code Description Data Mireille rce(s) Supporting Document(s) Hemoglobin A1C % Less than 5.7% Above high normal [facility] HBA1C: Normal: Less than 5.7% Prediabetes: 5.7% to 6.4% Diabetes: 6.5% or higher HA1C % vs Estimated Average Glucose (eAG) % eAG % eAG 6% 126 mg/dL 10% 240 mg/dL 7% 154 mg/dL 11% 269 mg/dL 8% 183 mg/dL 12% 298 mg/dL 9% 212 mg/dL Reference: [place] [employer], 2017 ID Date Data Source [id number] 10/11/2020 01:21:00 PM EDT [facility] Name Value Range Interpretation Code Description Data Mireille rce(s) Supporting Document(s) Sodium 137 mmol/L 137-145 Normal (applies to non-numeric resul ts) [facility] Potassium 3.5-5.1 Normal (applies to non-numeric resul ts) [facility] Chloride 102 mmol/L 98-112 Normal (applies to non-numeric resul ts) [facility] Carbon Dioxide CO2 22.0-33.0 Normal (applies to non-numer ic results) [facility] Anion Gap 4.0-11.0 Normal (applies to non-numeric resul ts) [facility] BUN 16 mg/dL 9-20 Normal (applies to non-numeric resul ts) [facility] Creatinine 0.80-1.50 Normal (applies to non-numeric resul ts) [facility] GFR 66 mL/min >60 Normal (applies to non-numeric resul ts) [facility] Result based on MDRD formula. Glucose Level 194 mg/dL 74-99 Above high normal [facility] The reference range is only applicable w hen fasting. Calcium-Uncorrected 8.4-10.2 Normal (applies to non-nume nelson results) [facility] Corrected Calcium 8.4-10.2 Normal (applies to non-numeri c results) [facility] Bilirubin,Total 0.2-1.3 Normal (applies to non-numeric results) [facility] SGOT(AST) 42 U/L 17-59 Normal (applies to non-numeric resul ts) [facility] SGPT(ALT) 57 U/L 21-72 Normal (applies to non-numeric resul ts) [facility] Alkaline Phosphatase 89 U/L 38-126 Normal (applies to non-num gage results) [facility] can increase Alkaline Phosp le vels up to 2 times the normal adult value. Normal values for children and adolescents are 2 to 3 times the normal adult value. Total Protein 6.3-8.2 Normal (applies to non-numeric re sults) [facility] Albumin 3.5-5.0 Normal (applies to non-numeric resul ts) [facility] ID Date Data Source [id number] 08/14/2020 10:59:00 PM EDT [facility] Name Value Range Interpretation Code Description Data Mireille rce(s) Supporting Document(s) SARS-CoV-2 (COVID 19) NEGATIVE - SARS-CoV-2 (COVID19) [facility] This lab was ordered by [facility] a nd reported by [facility]. ID Date Data Source [id number] 07/09/2020 03:28:00 PM EDT [facility] Name Value Range Interpretation Code Description Data Mireille rce(s) Supporting Document(s) Hemoglobin A1C % Less than 5.7% Above high normal [facility] HBA1C: Normal: Less than 5.7% Prediabetes: 5.7% to 6.4% Diabetes: 6.5% or higher HA1C % vs Estimated Average Glucose (eAG) % eAG % eAG 6% 126 mg/dL 10% 240 mg/dL 7% 154 mg/dL 11% 269 mg/dL 8% 183 mg/dL 12% 298 mg/dL 9% 212 mg/dL Reference: [place] [employer], 2017 ID Date Data Source [id number] 07/09/2020 03:23:00 PM EDT [facility] Name Value Range Interpretation Code Description Data Mireille rce(s) Supporting Document(s) Sodium 136 mmol/L 137-145 Below low normal [facility] Potassium 3.5-5.1 Normal (applies to non-numeric resul ts) [facility] Chloride 101 mmol/L 98-112 Normal (applies to non-numeric resul ts) [facility] Carbon Dioxide CO2 22.0-33.0 Normal (applies to non-numer ic results) [facility] Anion Gap 4.0-11.0 Normal (applies to non-numeric resul ts) [facility] BUN 17 mg/dL 9-20 Normal (applies to non-numeric resul ts) [facility] Creatinine 0.80-1.50 Normal (applies to non-numeric resul ts) [facility] GFR 57 mL/min >60 Below low normal [facility] Result based on MDRD formula. Glucose Level 296 mg/dL 74-99 Above high normal [facility] The reference range is only applicable w hen fasting. Calcium-Uncorrected 8.4-10.2 Normal (applies to non-nume nelson results) [facility] Corrected Calcium 8.4-10.2 Normal (applies to non-numeri c results) [facility] ID Date Data Source [id number] 05/02/2020 02:06:00 AM EST [facility] Name Value Range Interpretation Code Description Data Mireille rce(s) Supporting Document(s) SARS coronavirus 2 RNA [Presence] in Res piratory specimen by DAILY with probe detection POSITIVE [facility] This lab was ordered by [facility] a nd reported by [facility]. ID Date Data Source [id number] 04/29/2020 10:04:00 AM EST [facility] Name Value Range Interpretation Code Description Data Mireille rce(s) Supporting Document(s) SARS COVID ANTIGEN POSITIVE [facility] a [facility] reported by [facility]. ID Date Data Source [id number] COVID AG (Point of Care) 04/29/2020 12:00:00 AM EST eC W1 ([facility]) Name Value Range Interpretation Code Description Data Mireille rce(s) Supporting Document(s) POSITIVE NEGATIVE LYNNE COVID ANTIGEN eCW1 ([facility]) ID Date Data Source [id number] 04/12/2020 08:23:00 PM EST [facility] Name Value Range Interpretation Code Description Data Mireille rce(s) Supporting Document(s) SARS-CoV-2 (COVID 19) NEGATIVE - SARS-CoV-2 (COVID19) [facility] This lab was ordered by [facility] a nd reported by [facility]. ID Date Data Source [id number] 03/16/2020 05:11:00 AM EST [facility] Name Value Range Interpretation Code Description Data Mireille rce(s) Supporting Document(s) Hemoglobin A1C % Less than 5.7% Above high normal [facility] HBA1C: Normal: Less than 5.7% Prediabetes: 5.7% to 6.4% Diabetes: 6.5% or higher HA1C % vs Estimated Average Glucose (eAG) % eAG % eAG 6% 126 mg/dL 10% 240 mg/dL 7% 154 mg/dL 11% 269 mg/dL 8% 183 mg/dL 12% 298 mg/dL 9% 212 mg/dL Reference: [place] [employer], 2017 ID Date Data Source [id number] 02/28/2020 11:00:00 AM EST [facility] Name Value Range Interpretation Code Description Data [facility] rce(s) Supporting Document(s) SARS coronavirus 2 RNA [facility] This lab was ordered by [facility] and reported by [facility]. ID Date Data Source [id number] 01/28/2020 04:53:00 PM EDT [facility] ([facility] Name Value Range Interpretation Code Description Data [facility] rce(s) Supporting Document(s) Glucose [Mass/volume] in Capillary blood by Glucometer 154 mg/dL 80-115 Above high normal [facility] ([facility] ID Date Data Source [id number] 01/28/2020 04:09:00 PM EDT [facility] ([facility] Name Value Range Interpretation Code Description Data [facility] rce(s) Supporting Document(s) Surgical pathology study Laboratory test result MED[facility] ([facility] FINAL DIAGNOSIS Right hallux, 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 Margin appears viable. 01/30/202039 CLINICAL DIAGNOSIS Right hallux gangrene 01/29/2020 - 1304 GROSS DIAGNOSIS Received in formalin labeled "right hallux" and consists of a fragment of hallux 2.5 x 1 x 1 cm. An area of gangrenous changes is noted. [employer] sections are submitted in two after decalcification. -OA 01/29/2020 - 1304 Signed SALINA SAUNDERS MD 01/30/2020 0957 ID Date Data Source [id number] 01/28/2020 11:26:00 AM EDT [facility] ([facility] Name Value Range Interpretation Code Description Data Mireille rce(s) Supporting Document(s) Glucose [Mass/volume] in Capillary blood by Glucometer 91 mg/dL 80- 115 [facility] ([facility] Procedure Social History Code Duration Value Status Description Data Source(s ) Smoking 03/02/2021 12:00:00 AM EST Former Smoker completed Former Smoker eCW1 ([facility]) Smoking 03/02/2021 12:00:00 AM EST Former Smoker completed Former Smoker eCW1 ([facility]) Smoking 02/21/2021 12:00:00 AM EST Former Smoker completed Former Smoker eCW1 ([facility]) Smoking 02/21/2021 12:00:00 AM EST Former Smoker completed Former Smoker eCW1 ([facility]) Smoking 01/21/2021 12:00:00 AM EDT Former Smoker completed Former Smoker eCW1 ([facility]) Smoking 01/21/2021 12:00:00 AM EDT Former Smoker completed Former Smoker eCW1 ([facility]) Smoking 01/21/2021 12:00:00 AM EDT Former Smoker completed Former Smoker eCW1 ([facility]) Smoking 12/23/2020 12:00:00 AM EDT Former Smoker completed Former Smoker eCW1 ([facility]) Smoking 12/23/2020 12:00:00 AM EDT Former Smoker completed Former Smoker eCW1 ([facility]) Smoking 12/23/2020 12:00:00 AM EDT Former Smoker completed Former Smoker eCW1 ([facility]) Smoking 12/16/2020 12:00:00 AM EDT Former Smoker completed Former Smoker eCW1 ([facility]) Smoking 12/16/2020 12:00:00 AM EDT Former Smoker completed Former Smoker eCW1 ([facility]) Smoking 08/24/2020 12:00:00 AM EDT Former Smoker completed Former Smoker eCW1 ([facility]) Smoking 08/24/2020 12:00:00 AM EDT Former Smoker completed Former Smoker eCW1 ([facility]) Smoking 08/24/2020 12:00:00 AM EDT Former Smoker completed Former Smoker eCW1 ([facility]) Smoking 08/24/2020 12:00:00 AM EDT Former Smoker completed Former Smoker eCW1 ([facility]) Smoking 08/24/2020 12:00:00 AM EDT Former Smoker completed Former Smoker eCW1 ([facility]) Smoking 07/27/2020 12:00:00 AM EDT Former Smoker completed Former Smoker eCW1 ([facility]) Smoking 07/27/2020 12:00:00 AM EDT Former Smoker completed Former Smoker eCW1 ([facility]) Smoking 07/27/2020 12:00:00 AM EDT Former Smoker completed Former Smoker eCW1 ([facility]) Smoking 07/27/2020 12:00:00 AM EDT Former Smoker completed Former Smoker eCW1 ([facility]) Smoking 07/27/2020 12:00:00 AM EDT Former Smoker completed Former Smoker eCW1 ([facility]) Smoking 07/06/2020 12:00:00 AM EDT Former Smoker completed Former Smoker eCW1 ([facility]) Smoking 07/06/2020 12:00:00 AM EDT Former Smoker completed Former Smoker eCW1 ([facility]) Smoking 07/06/2020 12:00:00 AM EDT Former Smoker completed Former Smoker eCW1 ([facility]) Smoking 05/28/2020 12:00:00 AM EST Non Smoker completed Non Smoke r MEDENT ([facility], ) Smoking 05/13/2020 12:00:00 AM EST Former Smoker completed Former Smoker eCW1 ([facility]) Smoking 05/13/2020 12:00:00 AM EST Former Smoker completed Former Smoker eCW1 ([facility]) Smoking 05/13/2020 12:00:00 AM EST Former Smoker completed Former Smoker eCW1 ([facility]) Smoking 05/13/2020 12:00:00 AM EST Former Smoker completed Former Smoker eCW1 ([facility]) Smoking 05/05/2020 12:00:00 AM EST Former Smoker completed Former Smoker eCW1 ([facility]) Smoking 05/05/2020 12:00:00 AM EST Former Smoker completed Former Smoker eCW1 ([facility]) Smoking 05/05/2020 12:00:00 AM EST Former Smoker completed Former Smoker eCW1 ([facility]) Smoking 05/05/2020 12:00:00 AM EST Former Smoker completed Former Smoker eCW1 ([facility]) Smoking 05/05/2020 12:00:00 AM EST Former Smoker completed Former Smoker eCW1 ([facility]) Smoking 05/05/2020 12:00:00 AM EST Former Smoker completed Former Smoker eCW1 ([facility]) Smoking 05/05/2020 12:00:00 AM EST Former Smoker completed Former Smoker eCW1 ([facility]) Smoking 04/29/2020 12:00:00 AM EST Former Smoker completed Former Smoker eCW1 ([facility]) Smoking 04/06/2020 12:00:00 AM EST Former Smoker completed Former Smoker eCW1 ([facility]) Smoking 04/06/2020 12:00:00 AM EST Former Smoker completed Former Smoker eCW1 ([facility]) Smoking 04/06/2020 12:00:00 AM EST Former Smoker completed Former Smoker eCW1 ([facility]) Smoking 04/06/2020 12:00:00 AM EST Former Smoker completed Former Smoker eCW1 ([facility]) Smoking 04/06/2020 12:00:00 AM EST Former Smoker completed Former Smoker eCW1 ([facility]) Smoking 04/06/2020 12:00:00 AM EST Former Smoker completed Former Smoker eCW1 ([facility]) Smoking 04/06/2020 12:00:00 AM EST Former Smoker completed Former Smoker eCW1 ([facility]) Smoking 02/25/2020 12:00:00 AM EST Former Smoker completed Former Smoker eCW1 ([facility]) Smoking 02/25/2020 12:00:00 AM EST Former Smoker completed Former Smoker eCW1 ([facility]) Smoking 02/25/2020 12:00:00 AM EST Former Smoker completed Former Smoker eCW1 ([facility]) Smoking 02/25/2020 12:00:00 AM EST Former Smoker completed Former Smoker eCW1 ([facility]) Smoking 02/25/2020 12:00:00 AM EST Former Smoker completed Former Smoker eCW1 ([facility]) Smoking 02/25/2020 12:00:00 AM EST Former Smoker completed Former Smoker eCW1 ([facility]) Smoking 02/25/2020 12:00:00 AM EST Former Smoker completed Former Smoker eCW1 ([facility]) Smoking 02/24/2020 12:00:00 AM EST Former Smoker completed Former Smoker eCW1 ([facility]) Smoking 02/19/2020 12:00:00 AM EST Former Smoker completed Former Smoker eCW1 ([facility]) Smoking 02/19/2020 12:00:00 AM EST Former Smoker completed Former Smoker eCW1 ([facility]) Smoking 02/19/2020 12:00:00 AM EST Former Smoker completed Former Smoker eCW1 ([facility]) Smoking 02/09/2020 12:00:00 AM EST Former Smoker completed Former Smoker eCW1 ([facility]) Smoking 02/09/2020 12:00:00 AM EST Former Smoker completed Former Smoker eCW1 ([facility]) Smoking 01/19/2020 12:00:00 AM EDT Former Smoker completed Former Smoker eCW1 ([facility]) Smoking 01/19/2020 12:00:00 AM EDT Former Smoker completed Former Smoker eCW1 ([facility]) Smoking 01/19/2020 12:00:00 AM EDT Former Smoker completed Former Smoker eCW1 ([facility]) Vital Signs ID Date Data Source UNK Name Value Range Interpretation Code Description Data Source(s) Body weight 157 [lb_av] 157 [lb_av] eCW1 ([facility]) Body height 69 [in_i] 69 [in_i] eCW1 ([facility]) Body mass index (BMI) [Ratio] 23.18 kg/m2 23.18 kg/m2 eCW1 ([facility]) Heart rate 84 /min 84 /min eCW1 ([facility]) Respiratory rate 16 /min 16 /min eCW1 ([facility]) Body temperature 98.1 [degF] 98.1 [degF] eCW1 ( [facility]) Systolic blood pressure 101 mm[Hg] 101 mm[Hg] e CW1 ([facility]) Diastolic blood pressure 44 mm[Hg] 44 mm[Hg] eCW1 ([facility]) Body weight 159.2 [lb_av] 159.2 [lb_av] eCW1 ([facility]) Body weight 72.21 kg 72.21 kg eCW1 ([facility]) Body height 69 [in_i] 69 [in_i] eCW1 ([facility]) Body mass index (BMI) [Ratio] 23.51 kg/m2 23.51 kg/m2 W1 ([facility]) Heart rate 93 /min 93 /min eCW1 ([facility]) Respiratory rate 17 /min 17 /min eCW1 ([facility]) Body temperature 97.6 [degF] 97.6 [degF] eCW1 ( [facility]) Systolic blood pressure 110 mm[Hg] 110 mm[Hg] e CW1 ([facility]) Diastolic blood pressure 48 mm[Hg] 48 mm[Hg] eCW1 ([facility]) Systolic blood pressure 109 mm[Hg] 109 mm[Hg] M EDENT ([facility], ) Diastolic blood pressure 65 mm[Hg] 65 mm[Hg] MEDENT ([facility], ) Heart rate 82 /min 82 /min MEDENT ([facility]) Body temperature 98.8 [degF] 98.8 [degF] MEDENT ([facility]) Body height 69 [in_i] 69 [in_i] [facility] ([facility]) 5'9" Body weight 164.00 [lb_av] 164.00 [lb_av] MEDEN T ([facility]) Body mass index (BMI) [Ratio] 24.2 kg/m2 24.2 k g/m2 [facility] ([facility]) [place] body weight 160 [lb_av] 160 [lb_av] [facility] T ([facility]) Body weight 74.390 kg 74.390 kg [facility] ([facility]) Body surface area Derived from formula 1.90 m2 1.90 m2 [facility] ([facility]) Body weight 154.4 [lb_av] 154.4 [lb_av] eCW1 ([facility]) Body height 69 [in_i] 69 [in_i] eCW1 ([facility]) Body mass index (BMI) [Ratio] 22.80 kg/m2 22.80 kg/m2 W1 ([facility]) Heart rate 78 /min 78 /min eCW1 ([facility]) Respiratory rate 18 /min 18 /min W1 ([facility]) Body temperature 97.6 [degF] 97.6 [degF] eCW1 ( [facility]) Systolic blood pressure 146 mm[Hg] 146 mm[Hg] e CW1 ([facility]) Diastolic blood pressure 66 mm[Hg] 66 mm[Hg] eCW1 ([facility]) Systolic blood pressure 138 mm[Hg] 138 mm[Hg] M EDENT ([facility]) Body weight 152.00 [lb_av] 152.00 [lb_av] [facility] T ([facility]) Body mass index (BMI) [Ratio] 22.4 kg/m2 22.4 k g/m2 [facility] ([facility]) [place] body weight 160 [lb_av] 160 [lb_av] [facility] T ([facility]) Body weight 68.947 kg 68.947 kg MEDENT ([facility]) Body surface area Derived from formula 1.84 m2 1.84 m2 [facility] ([facility]) Diastolic blood pressure 80 mm[Hg] 80 mm[Hg] MEDENT ([facility]) Body temperature 97.9 [degF] 97.9 [degF] [facility] ([facility]) Body height 69 [in_i] 69 [in_i] MEDENT ([facility]) 5'9" Body weight 162.6 [lb_av] 162.6 [lb_av] eCW1 ([facility]) Body height 69 [in_i] 69 [in_i] eCW1 ([facility]) Body mass index (BMI) [Ratio] 24.01 kg/m2 24.01 kg/m2 eCW1 ([facility]) Heart rate 70 /min 70 /min eCW1 ([facility]) Respiratory rate 18 /min 18 /min eCW1 ([facility]) Body temperature 98.1 [degF] 98.1 [degF] eCW1 ( [facility]) Systolic blood pressure 112 mm[Hg] 112 mm[Hg] e CW1 ([facility]) Diastolic blood pressure 55 mm[Hg] 55 mm[Hg] eCW1 ([facility]) Heart rate 65 /min 65 /min MEDENT ([facility]) Systolic blood pressure 116 mm[Hg] 116 mm[Hg] M EDENT ([facility]) Body mass index (BMI) [Ratio] 24.4 kg/m2 24.4 k g/m2 MEDENT ([facility]) Diastolic blood pressure 71 mm[Hg] 71 mm[Hg] MEDENT ([facility]) Body height 69 [in_i] 69 [in_i] MEDENT ([facility]) 5'9" Body weight 165.25 [lb_av] 165.25 [lb_av] MEDEN T ([facility]) [place] body weight 160 [lb_av] 160 [lb_av] MED[facility] T ([facility]) Body weight 74.957 kg 74.957 kg MEDENT ([facility]) Body surface area Derived from formula 1.91 m2 1.91 m2 [facility] ([facility]) Body weight 165.2 [lb_av] 165.2 [lb_av] eCW1 ([facility]) Body height 69 [in_i] 69 [in_i] eCW1 ([facility]) Body mass index (BMI) [Ratio] 24.39 kg/m2 24.39 kg/m2 eCW1 ([facility]) Heart rate 73 /min 73 /min eCW1 ([facility]) Respiratory rate 18 /min 18 /min eCW1 ([facility]) Body temperature 97.4 [degF] 97.4 [degF] eCW1 ( [facility]) Systolic blood pressure 106 mm[Hg] 106 mm[Hg] e CW1 ([facility]) Diastolic blood pressure 49 mm[Hg] 49 mm[Hg] eCW1 ([facility]) Body weight 164.00 [lb_av] 164.00 [lb_av] MEDEN T ([facility]) Systolic blood pressure 153 mm[Hg] 153 mm[Hg] M EDENT ([facility]) Diastolic blood pressure 76 mm[Hg] 76 mm[Hg] MEDENT ([facility]) Heart rate 67 /min 67 /min MEDENT ([facility]) Body height 69 [in_i] 69 [in_i] MEDENT ([facility]) 5'9" [place] body weight 160 [lb_av] 160 [lb_av] MEDEN T ([facility]) Body weight 74.390 kg 74.390 kg MEDENT ([facility]) Body surface area Derived from formula 1.90 m2 1.90 m2 [facility] ([facility]) Body mass index (BMI) [Ratio] 24.2 kg/m2 24.2 k g/m2 [facility] ([facility]) Body weight 74.390 kg 74.390 kg [facility] ([facility]) Body height 69 [in_i] 69 [in_i] [facility] ([facility]) 5'9" Systolic blood pressure 130 mm[Hg] 130 mm[Hg] M EDENT ([facility]) Diastolic blood pressure 68 mm[Hg] 68 [facility] Body weight 164.00 [lb_av] 164.00 [lb_av] MEDEN T ([facility]) stated Body mass index (BMI) [Ratio] 24.2 kg/m2 24.2 k g/m2 [facility] ([facility]) [place] body weight 160 [lb_av] 160 [lb_av] MED[facility] T ([facility]) Body surface area Derived from formula 1.90 m2 1.90 m2 [facility] ([facility]) Body weight 158 [lb_av] 158 [lb_av] eCW1 ([facility]) Body height 69 [in_i] 69 [in_i] eCW1 ([facility]) Body mass index (BMI) [Ratio] 23.33 kg/m2 23.33 kg/m2 W1 ([facility]) Heart rate 60 /min 60 /min eCW1 ([facility]) Respiratory rate 18 /min 18 /min eCW1 ([facility]) Body temperature 97.9 [degF] 97.9 [degF] eCW1 ( [facility]) Systolic blood pressure 182 mm[Hg] 182 mm[Hg] e CW1 ([facility]) Diastolic blood pressure 73 mm[Hg] 73 mm[Hg] eCW1 ([facility]) Body height 69 [in_i] 69 [in_i] [facility] ([facility]) 5'9" Body weight 164.00 [lb_av] 164.00 [lb_av] MEDEN T ([facility]) Systolic blood pressure 159 mm[Hg] 159 mm[Hg] M EDENT ([facility]) Body surface area Derived from formula 1.90 m2 1.90 m2 [facility] ([facility]) Diastolic blood pressure 77 mm[Hg] 77 mm[Hg] [facility] ([facility]) Heart rate 66 /min 66 /min [facility] ([facility]) Body mass index (BMI) [Ratio] 24.2 kg/m2 24.2 k g/m2 [facility] ([facility]) [place] body weight 160 [lb_av] 160 [lb_av] MEDEN T ([facility]) Body weight 74.390 kg 74.390 kg [facility] ([facility]) Body weight 164.00 [lb_av] 164.00 [lb_av] MEDEN T ([facility]) Body mass index (BMI) [Ratio] 24.2 kg/m2 24.2 k g/m2 [facility] ([facility]) [place] body weight 160 [lb_av] 160 [lb_av] MEDEN T ([facility]) Body weight 74.390 kg 74.390 kg [facility] ([facility]) Body height 69 [in_i] 69 [in_i] [facility] ([facility]) 5'9" Body surface area Derived from formula 1.90 m2 1.90 m2 [facility] ([facility]) Body weight 158.8 [lb_av] 158.8 [lb_av] eCW1 ([facility]) Body height 69 [in_i] 69 [in_i] eCW1 ([facility]) Body mass index (BMI) [Ratio] 23.45 kg/m2 23.45 kg/m2 W1 ([facility]) Heart rate 71 /min 71 /min eCW1 ([facility]) Respiratory rate 18 /min 18 /min eCW1 ([facility]) Body temperature 98.0 [degF] 98.0 [degF] eCW1 ( [facility]) Systolic blood pressure 157 mm[Hg] 157 mm[Hg] e CW1 ([facility]) Diastolic blood pressure 72 mm[Hg] 72 mm[Hg] eCW1 ([facility]) Systolic blood pressure 115 mm[Hg] 115 mm[Hg] M [facility] ([facility]) Diastolic blood pressure 63 mm[Hg] 63 mm[Hg] [facility] ([facility]) Heart rate 78 /min 78 /min [facility] ([facility]) Body height 69 [in_i] 69 [in_i] [facility] ([facility]) 5'9" Body weight 151.00 [lb_av] 151.00 [lb_av] MEDEN T ([facility]) Body mass index (BMI) [Ratio] 22.3 kg/m2 22.3 k g/m2 [facility] ([facility]) [place] body weight 160 [lb_av] 160 [[facility]_av] [facility] Body surface area Derived from formula 1.83 m2 1.83 m2 [facility] ([facility]) Body weight 68.494 kg 68.494 kg [facility] ([facility]) Body weight 151.2 [lb_av] 151.2 [lb_av] eCW1 ([facility]) Body height 69 [in_i] 69 [in_i] eCW1 ([facility]) Body mass index (BMI) [Ratio] 22.33 kg/m2 22.33 kg/m2 eCW1 ([facility]) Heart rate 81 /min 81 /min eCW1 ([facility]) Respiratory rate 17 /min 17 /min eCW1 ([facility]) Body temperature 98.1 [degF] 98.1 [degF] eCW1 ( [facility]) Systolic blood pressure 114 mm[Hg] 114 mm[Hg] e CW1 ([facility]) Diastolic blood pressure 55 mm[Hg] 55 mm[Hg] eCW1 ([facility]) Systolic blood pressure 136 mm[Hg] 136 mm[Hg] M EDENT ([facility]) Diastolic blood pressure 78 mm[Hg] 78 mm[Hg] MED[facility] ([facility]) Heart rate 69 /min 69 /min [facility] ([facility]) Body height 69 [in_i] 69 [in_i] MED[facility] ([facility]) 5'9" Body weight 153.50 [lb_av] 153.50 [lb_av] MEDEN T ([facility]) Body mass index (BMI) [Ratio] 22.7 kg/m2 22.7 k g/m2 [facility] ([facility]) [place] body weight 160 [lb_av] 160 [lb_av] [facility] T ([facility]) Body weight 69.628 kg 69.628 kg [facility] ([facility]) Body surface area Derived from formula 1.85 m2 1.85 m2 [facility] ([facility]) Diastolic blood pressure 70 mm[Hg] 70 mm[Hg] [facility] ([facility]) Body weight 155.00 [lb_av] 155.00 [lb_av] MEDEN T ([facility]) Stated Body mass index (BMI) [Ratio] 22.9 kg/m2 22.9 k g/m2 [facility] ([facility]) [place] body weight 160 [lb_av] 160 [lb_av] [facility] T ([facility]) Body weight 70.308 kg 70.308 kg [facility] ([facility]) Body surface area Derived from formula 1.85 m2 1.85 m2 [facility] ([facility]) Body height 69 [in_i] 69 [in_i] [facility] ([facility]) 5'9" Systolic blood pressure 150 mm[Hg] 150 mm[Hg] M EDENT ([facility]) Body weight 155 [lb_av] 155 [lb_av] eCW1 ([facility]) Body height 69 [in_i] 69 [in_i] eCW1 ([facility]) Body mass index (BMI) [Ratio] 22.89 kg/m2 22.89 kg/m2 eCW1 ([facility]) Heart rate 78 /min 78 /min eCW1 ([facility]) Respiratory rate 18 /min 18 /min eCW1 ([facility]) Body temperature 98.4 [degF] 98.4 [degF] eCW1 ( [facility]) Systolic blood pressure 109 mm[Hg] 109 mm[Hg] e CW1 ([facility]) Diastolic blood pressure 53 mm[Hg] 53 mm[Hg] eCW1 ([facility]) Systolic blood pressure 124 mm[Hg] 124 mm[Hg] M EDENT ([facility]) Diastolic blood pressure 72 mm[Hg] 72 [facility] Body height 69 [in_i] 69 [in_i] [facility] ([facility]) 5'9" Body weight 145.00 [lb_av] 145.00 [lb_av] MED[facility] T ([facility]) Body mass index (BMI) [Ratio] 21.4 kg/m2 21.4 k g/m2 [facility] ([facility]) [place] body weight 160 [lb_av] 160 [lb_av] MED[facility] T ([facility]) Body weight 65.772 kg 65.772 kg [facility] ([facility]) Body surface area Derived from formula 1.80 m2 1.80 m2 [facility] ([facility]) Body mass index (BMI) [Ratio] 22.89 kg/m2 22.89 kg/m2 eCW1 ([facility]) Diastolic blood pressure 42 mm[Hg] 42 mm[Hg] eCW1 ([facility]) Heart rate 89 /min 89 /min eCW1 ([facility]) Respiratory rate 20 /min 20 /min eCW1 ([facility]) Body temperature 98.7 [degF] 98.7 [degF] eCW1 ( [facility]) Body weight 155 [lb_av] 155 [lb_av] eCW1 ([facility]) Body height 69 [in_i] 69 [in_i] eCW1 ([facility]) Systolic blood pressure 91 mm[Hg] 91 mm[Hg] e CW1 ([facility]) Diastolic blood pressure 73 mm[Hg] 73 mm[Hg] [facility] ([facility]) Body mass index (BMI) [Ratio] 21.1 kg/m2 21.1 k g[facility] [place] body weight 160 [lb_av] 160 [lb_av] [facility] T ([facility]) Body weight 64.865 kg 64.865 kg [facility] ([facility]) Body surface area Derived from formula 1.79 m2 1.79 m2 [facility] ([facility]) Systolic blood pressure 123 mm[Hg] 123 mm[Hg] M EDENT ([facility]) Body height 69 [in_i] 69 [[facility]_i] [facility] Body weight 143.00 [lb_av] 143.00 [lb_av] [facility] stated Body weight 155 [lb_av] 155 [lb_av] W1 ([facility]) Body temperature 98.3 [degF] 98.3 [degF] eCW1 ( [facility]) Systolic blood pressure 136 mm[Hg] 136 mm[Hg] e CW1 ([facility]) Diastolic blood pressure 65 mm[Hg] 65 mm[Hg] eCW1 ([facility]) Body height 69 [in_i] 69 [in_i] eCW1 ([facility]) Body mass index (BMI) [Ratio] 22.89 kg/m2 22.89 kg/m2 eCW1 ([facility]) Heart rate 74 /min 74 /min eCW1 ([facility]) Respiratory rate 18 /min 18 /min eCW1 ([facility]) Systolic blood pressure 110 mm[Hg] 110 mm[Hg] M EDENT ([facility], ) Diastolic blood pressure 63 mm[Hg] 63 mm[Hg] [facility] ([facility]) Body height 69 [in_i] 69 [in_i] [facility] ([facility]) 5'9" Body weight 143.00 [lb_av] 143.00 [lb_av] [facility] T ([facility]) Body mass index (BMI) [Ratio] 21.1 kg/m2 21.1 k g[facility] [place] body weight 160 [lb_av] 160 [lb_av] [facility] T ([facility]) Body weight 64.865 kg 64.865 kg [facility] ([facility]) Body surface area Derived from formula 1.79 m2 1.79 m2 [facility] ([facility]) [facility] 85 [facility]min 85 [facility] Body height 69 [in_i] 69 [in_i] MED[facility] ([facility]) 5'9" [place] body weight 160 [lb_av] 160 [lb_av] [facility] T ([facility]) Systolic blood pressure 126 mm[Hg] 126 mm[Hg] M EDENT ([facility]) Diastolic blood pressure 61 mm[Hg] 61 mm[Hg] [facility] ([facility]) Body weight 164 [lb_av] 164 [lb_av] eCW1 ([facility]) Respiratory rate 20 /min 20 /min eCW1 ([facility]) Systolic blood pressure 188 mm[Hg] 188 mm[Hg] e CW1 ([facility]) Body temperature 97.7 [degF] 97.7 [degF] eCW1 ( [facility]) Body height 69 [in_i] 69 [in_i] eCW1 ([facility]) Body mass index (BMI) [Ratio] 24.22 kg/m2 24.22 kg/m2 eCW1 ([facility]) Heart rate 90 /min 90 /min eCW1 ([facility]) Diastolic blood pressure 78 mm[Hg] 78 mm[Hg] eCW1 ([facility]) Body weight 164 [lb_av] 164 [lb_av] eCW1 ([facility]) Body height 69 [in_i] 69 [in_i] eCW1 ([facility]) Body mass index (BMI) [Ratio] 24.22 kg/m2 24.22 kg/m2 eCW1 ([facility]) Heart rate 82 /min 82 /min eCW1 ([facility]) Respiratory rate 20 /min 20 /min eCW1 ([facility]) Body temperature 98.5 [degF] 98.5 [degF] eCW1 ( [facility]) Systolic blood pressure 107 mm[Hg] 107 mm[Hg] e CW1 ([facility]) Diastolic blood pressure 58 mm[Hg] 58 mm[Hg] eCW1 ([facility]) Respiratory rate 22 /min 22 /min eCW1 ([facility]) Body weight 168 [lb_av] 168 [lb_av] eCW1 ([facility]) Body temperature 98.2 [degF] 98.2 [degF] eCW1 ( [facility]) Body weight kg eCW1 ([facility]) Systolic blood pressure 188 mm[Hg] 188 mm[Hg] e CW1 ([facility]) Body height 69 [in_i] 69 [in_i] eCW1 ([facility]) Diastolic blood pressure mm[Hg] eCW1 ([facility]) Body mass index (BMI) [Ratio] 24.81 kg/m2 24.81 kg/m2 eCW1 ([facility]) Heart rate 88 /min 88 /min eCW1 ([facility]) Body height 69 [in_i] 69 [in_i] MEDENT [...] pressure 128 mm[Hg] 128 mm[Hg] M EDENT ([facility]) Diastolic blood pressure 70 mm[Hg] 70 mm[Hg] [facility] ([facility]) Body weight 76.318 kg 76.318 kg [facility] ([facility]) [place] body weight 160 [lb_av] 160 [lb_av] [facility] ([facility]) Body height 69 [in_i] 69 [in_i] [facility] ([facility]) 5'9" Body weight 168.25 [lb_av] 168.25 [lb_av] [facility] Body surface area Derived from formula 1.92 m2 1.92 m2 [facility] ([facility]) Body mass index (BMI) [Ratio] 24.8 kg/m2 24.8 k g/m2 [facility] ([facility]) Body weight kg eCW1 ([facility]) Body weight 168 [lb_av] 168 [lb_av] eCW1 ([facility]) Respiratory rate 18 /min 18 /min eCW1 ([facility]) Body temperature 94.6 [degF] 94.6 [degF] eCW1 ( [facility]) Systolic blood pressure 107 mm[Hg] 107 mm[Hg] e CW1 ([facility]) Diastolic blood pressure 69 mm[Hg] 69 mm[Hg] eCW1 ([facility]) Body height 69 [in_i] 69 [in_i] eCW1 ([facility]) Body mass index (BMI) [Ratio] 24.81 kg/m2 24.81 kg/m2 eCW1 ([facility]) Heart rate 77 /min 77 /min eCW1 ([facility]) Body weight 168 [lb_av] 168 [lb_av] eCW1 ([facility]) Body weight kg eCW1 ([facility]) Body height 69 [in_i] 69 [in_i] eCW1 ([facility]) Body mass index (BMI) [Ratio] 24.81 kg/m2 24.81 kg/m2 eCW1 ([facility]) Patient Treatment Plan of Care Planned Activity Planned Date Details Description Data Source (s) Amlodipine 5 MG Oral Tablet 02/08/2021 12:00:00 AM EST eCW1 ([facility]) Bisacodyl 10 MG Rectal Suppository 12/14/2020 12:00:00 AM EDT eCW1 ([facility]) Docusate Sodium 100 MG Oral Capsule [Colace] 12/14/2020 12:00:00 AM EDT eCW1 ([facility]) Ketoconazole 20 MG/ML Topical Cream 09/16/2020 12:00:00 AM EDT eCW1 ([facility]) Ketoconazole 20 MG/ML Topical Cream 09/16/2020 12:00:00 AM EDT eCW1 ([facility]) Ketoconazole 20 MG/ML Topical Cream 09/16/2020 12:00:00 AM EDT eCW1 ([facility]) Ketoconazole 20 MG/ML Topical Cream 09/16/2020 12:00:00 AM EDT eCW1 ([facility]) Prednisone 1 MG Oral Tablet 07/27/2020 12:00:00 AM EDT eCW1 ([facility]) Prednisone 1 MG Oral Tablet 07/27/2020 12:00:00 AM EDT eCW1 ([facility]) Prednisone 1 MG Oral Tablet 07/27/2020 12:00:00 AM EDT eCW1 ([facility]) Prednisone 1 MG Oral Tablet 07/27/2020 12:00:00 AM EDT eCW1 ([facility]) Prednisone 1 MG Oral Tablet 07/27/2020 12:00:00 AM EDT eCW1 ([facility]) aripiprazole 5 MG Oral Tablet 07/06/2020 12:00:00 AM EDT eCW1 ([facility]) aripiprazole 5 MG Oral Tablet 07/06/2020 12:00:00 AM EDT eCW1 ([facility]) aripiprazole 5 MG Oral Tablet 07/06/2020 12:00:00 AM EDT eCW1 ([facility]) aripiprazole 5 MG Oral Tablet 07/06/2020 12:00:00 AM EDT eCW1 ([facility]) aripiprazole 5 MG Oral Tablet 07/06/2020 12:00:00 AM EDT eCW1 ([facility]) aripiprazole 5 MG Oral Tablet 07/06/2020 12:00:00 AM EDT eCW1 ([facility]) aripiprazole 5 MG Oral Tablet 07/06/2020 12:00:00 AM EDT eCW1 ([facility]) aripiprazole 5 MG Oral Tablet 07/06/2020 12:00:00 AM EDT eCW1 ([facility]) aripiprazole 5 MG Oral Tablet 07/06/2020 12:00:00 AM EDT eCW1 ([facility]) aripiprazole 5 MG Oral Tablet 07/06/2020 12:00:00 AM EDT eCW1 ([facility]) aripiprazole 5 MG Oral Tablet 07/06/2020 12:00:00 AM EDT eCW1 ([facility]) aripiprazole 5 MG Oral Tablet 07/06/2020 12:00:00 AM EDT eCW1 ([facility]) aripiprazole 5 MG Oral Tablet 07/06/2020 12:00:00 AM EDT eCW1 ([facility]) [facility]11[facility]2020 12:00:00 AM EST eCW1 ([facility]) Misc. Devices - 03/11/2020 12:00:00 AM EST eCW1 ([facility]) Misc. Devices - 03/11/2020 12:00:00 AM EST eCW1 ([facility]) Misc. Devices - 03/11/2020 12:00:00 AM EST eCW1 ([facility]) Misc. Devices - 03/11/2020 12:00:00 AM EST eCW1 ([facility]) Wheelchair - 02/24/2020 12:00:00 AM EST e CW1 ([facility]) Wheelchair - 02/24/2020 12:00:00 AM EST e CW1 ([facility]) Wheelchair - 02/24/2020 12:00:00 AM EST e CW1 ([facility]) Wheelchair - 02/24/2020 12:00:00 AM EST e CW1 ([facility]) Wheelchair - 02/24/2020 12:00:00 AM EST e CW1 ([facility]) Wheelchair - 02/24/2020 12:00:00 AM EST e CW1 ([facility]) Wheelchair - 02/24/2020 12:00:00 AM EST e CW1 ([facility]) Wheelchair - 02/24/2020 12:00:00 AM EST e CW1 ([facility])
--- NOTE | 2021-03-06 15:23 | REP ---
INDICATION: leukocytosis. COMPARISON: Portable chest, 01/10/2021. TECHNIQUE: AP portable chest image was obtained. FINDINGS: There is cardiomegaly and pulmonary venous hypertension without overt congestive heart failure. There are no pleural effusions. The upper abdominal bowel gas pattern is normal. IMPRESSION: Cardiomegaly and pulmonary venous hypertension without congestive heart failure. <Electronically signed by Hermann Rodriguez > 03/06/21 [id number]
--- NOTE | 2021-03-06 15:50 | REP ---
INDICATION: Altered mental status COMPARISON: CT head without contrast, 03/06/2020. TECHNIQUE: Contiguous 5 mm thick axial projection images were obtained through the head. 2D coronal reconstructions were performed. FINDINGS: There is moderate diffuse cerebral atrophy with concomitant ventriculomegaly. There is patchy low density of the periventricular white matter consistent with chronic ischemic white matter disease. There is calcific vascular disease of the intracranial portion of both internal carotid arteries and both vertebral arteries. There is no evidence of acute intracranial hemorrhage or infarction. There are no abnormal intracranial masses or mass effects. The skull base and calvarium are normal. The visualized mastoid air cells and paranasal sinuses are clear. The intraorbital contents and visualized extracranial soft tissues are unremarkable. IMPRESSION: Moderate cerebral atrophy. No evidence of acute intracranial pathology. <Electronically signed by Hermann Rodriguez > 03/06/21 [id number]
[2021-03-06] MEDS ORDERED: HOME MED LIST COMPLETE! XX SCH (16:30)
[2021-03-06] MEDS ORDERED: ACETAMINOPHEN 325 MG TAB PO PRN (16:45)
[2021-03-06] MEDS ORDERED: GLUCAGON INJ 1MG VIAL IM PRN (16:45)
[2021-03-06] MEDS ORDERED: DOCUSATE SODIUM 100MG CAPSULE PO PRN (16:45)
[2021-03-06 17:04] LABS: RSV AMPLIFICATION NEGATIVE (NEGATIVE)
--- OUTSIDE RECORDS SUMMARY | 2021-03-06 17:10 | CCD ---
Author Author [facility] Organization [facility] Address Unknown Phone Unavailable Care Team Providers Care Machinist Name Role Phone DIDIER KEVIN MD Unavailable [...] Unavailable Wojciech, L Manuel MD Unavailable Unavailable [place], L Manuel MD Unavailable Unavailable [place], L Manuel MD Unavailable Unavailable Wojciech, L Manuel MD Unavailable Unavailable Wojciech, L Manuel MD Unavailable Unavailable Wojciech, L Manuel MD Unavailable Unavailable [place], L Manuel MD Unavailable Unavailable [place], L Manuel MD Unavailable Unavailable [place], L Manuel MD Unavailable Unavailable [place], L Manuel MD Unavailable Unavailable Wojciech, L Manuel MD Unavailable Unavailable Wojciech, L Manuel MD Unavailable Unavailable [place], L Manuel MD Unavailable Unavailable [place], L Manuel MD Unavailable Unavailable Wojciech, L Manuel MD Unavailable Unavailable Wojciech, L Manuel MD Unavailable Unavailable Wojciech, L Manuel MD Unavailable Unavailable Wojciech, L Manuel MD Unavailable Unavailable Wojciech, L Manuel MD Unavailable Unavailable [place], L Manuel MD Unavailable Unavailable [place], L Manuel MD Unavailable Unavailable [place], L Manuel MD Unavailable Unavailable Wojciech, L Manuel MD Unavailable Unavailable Wojciech, L Manuel MD Unavailable Unavailable [place], Jarvis Manuel MD Unavailable Unavailable Wojciech, L Manuel MD Unavailable Unavailable [place], L Manuel MD Unavailable Unavailable [place], L Manuel MD Unavailable Unavailable [place], L Manuel MD Unavailable Unavailable [place], L Manuel MD Unavailable Unavailable [place], Jarvis Manuel MD Unavailable Unavailable [place], L Manuel MD Unavailable Unavailable [place], L Manuel MD Unavailable Unavailable Wojciech, L Manuel MD Unavailable Unavailable [place], L Manuel MD Unavailable Unavailable Wojciech, L Manuel MD Unavailable Unavailable [place], L Manuel MD Unavailable Unavailable Wojciech, Jarvis Manuel MD Unavailable Unavailable Wojciech, L Manuel MD Unavailable Unavailable [place], L Manuel MD Unavailable Unavailable [place], L Maneul MD Unavailable Unavailable Wojciech, L Manuel MD Unavailable Unavailable Wojciech, L Manuel MD Unavailable Unavailable [place], L Manuel MD Unavailable Unavailable [place], L Manuel MD Unavailable Unavailable Wojciech, L [...] RPA Unavailable Unavailable Ama Malagon PA Unavailable [phone] Ama Malagon PA Unavailable [phone] Ama Malagonrick PA Unavailable [phone] Ama Malagon PA Unavailable [phone] Ama Malagon PA Unavailable [phone] Ama Malagon Jose PA Unavailable [phone] Ama Malagon Jose PA Unavailable [phone] Ama Malagon PA Unavailable [phone] Ama Malagon PA Unavailable [phone] Ama Malagon Jose PA Unavailable [phone] Ama Malagon Jose PA Unavailable [phone] Ama Malagon PA Unavailable [phone] Ama Malagonrick KATERYNA Unavailable [phone] STILLERMAN, EDUARDO MD Unavailable Unavailable STILLERMAN, EDUARDO [...] is protected by Article 27-F of the [facility] Public Health law. If you continue you may have access to information: Regarding HIV / AIDS; Provided by facilities licensed or operated by the [facility] Office of Mental Health; or Provided by the [facility] Office for People With Developmental Disabilities. If such information is present, then the following [facility] mandated warning applies: This information has [...] ALLERGIES NO KNOWN MEDICA TION ALLERGIES NDOC ([facility]) Family History Family Member Name Family Member Gender Family Member Status Date o f Status Description Data Source(s) Unknown Unknown Problem MEDENT ([facility], ) father Encounters Encounter Providers Location Date Indications Data Source(s ) (MARIAM NP120) New Patient 120 Min [address] [place] [address] 03/02/2021 12:00:00 AM EST eCW1 ([facility]) Unknown [address] [facility] [address] 03/01/2021 12:00:00 AM EST eCW1 ([facility]) Unknown [address] [facility] [address] 02/21/2021 12:00:00 AM EST eCW1 ([facility]) Outpatient [address] [facility] [address] 02/18/2021 12:00:00 AM EST eCW1 ([facility]) Unknown [address] [facility] [address] 02/14/2021 12:00:00 AM EST eCW1 ([facility]) Office Visit Attender: KAREN Mcnair/Анна/Indra/Diana indl 02/03/2021 08:45:00 AM EDT MEDENT ([facility], ) Unknown [address] [facility] [address] 01/27/2021 12:00:00 AM EDT eCW1 ([facility]) Outpatient Attender: Alex Kuhn MD CPSCAORT-CPSCAEND 01/24 12:59:00 PM EDT - 01/24/2021 01:00:00 PM EDT E10.65 [facility] E10.65 Patient discharged. Outpatient [address] [facility] [address] 01/21/2021 12:00:00 AM EDT [email or web address] Unknown [address] [facility] [place] [address] 01/07/2021 12:00:00 AM EDT eCW1 [email or web address] Office Visit Attender: KAREN Mcnair/Анна/Indra/Re indl 01/06/2021 11:45:00 AM EDT MEDENT ([facility] Unknown [address] [facility], [place] [address] 12/31/2020 12:00:00 AM EDT eCW1 [email or web address] (TCM) Transition of Care Visit [address] [place] [address] 12/23/2020 12:00:00 AM EDT eCW1 ([facility] [place]) Unknown [address] [facility] [place] [address] 12/22/2020 12:00:00 AM EDT eCW1 [email or web address] Office Visit Attender: KAREN Mcnair/Анна/Indra/Re indl 12/17/2020 01:00:00 PM EDT MEDENT ([facility]) Outpatient [address] [facility], [place] [address] 12/16/2020 12:00:00 AM EDT eCW1 [email or web address] O Attender: Alayna Simpson MDConsultant: EDUARDO CHAU MD 12/14/2020 12:00:00 AM EDT NDOC ([facility]) Patient admitted. Unknown [address] [facility] [address] 12/14/2020 12:00:00 AM EDT eCW1 ([facility]) Outpatient Attender: Manuel Mcnair/[place]/Indra/ Reindl 11/11/2020 08:30:00 AM EDT MEDENT ([facility]) Outpatient Attender: MATT Mcnair/[place]/Indra/Reindl 11/01/2020 02:30:00 PM EDT MEDENT ([facility]) [place] [address] [facility] [address] 10/20/2020 12:00:00 AM EDT eCW1 ([facility]) Outpatient Attender: Jose GLEASONttender: Maurisio AVENDAÑO CPSCAORT-CPSCAEND 10/11/2020 10:38:00 AM EDT - 10/11/2020 10:39:00 AM ED T E10.65 [facility] E10.65 Patient discharged. [place] [address] [facility] [address] 09/16/2020 12:00:00 AM EDT eCW1 ([facility]) [place] [address] [facility] [address] 09/16/2020 12:00:00 AM EDT eCW1 ([facility]) Office Visit, Est Pt., Level 3 FC [address] [place] [address] 08/24/2020 12:00:00 AM EDT eCW1 ([facility]) [place] [address] [facility] [address] 08/17/2020 12:00:00 AM EDT eCW1 ([facility]) [place] [address] [facility] [address] 08/17/2020 12:00:00 AM EDT eCW1 ([facility]) Outpatient Attender: Kathy Mcnair/Анна/Indra/ Reindl 08/12/2020 11:00:00 AM EDT MEDENT ([facility]) [place] [address] [facility] [address] 08/05/2020 12:00:00 AM EDT eCW1 [email or web address] [place] [address] [facility] [address] 07/27/2020 12:00:00 AM EDT eCW1 [email or web address] [place] [address] [facility] [address] 07/27/2020 12:00:00 AM EDT eCW1 [email or web address] Outpatient Attender: Alex Kuhn MD CPSCAORT-CPSCAEND 07/09 01:20:00 PM EDT - 07/09/2020 01:21:00 PM EDT E10.65 [facility] E10.65 Patient discharged. [place] [address] [facility] [address] 07/09/2020 12:00:00 AM EDT eCW1 [email or web address] Outpatient Attender: Kathy Mcnair/Анна/Indra/ Reindl 07/08/2020 11:45:00 AM EDT MEDENT ([facility] [place] [address] [facility] [address] 07/06/2020 12:00:00 AM EDT [facility]CW1 [facility] [place] [address] [facility] [address] 07/02/2020 12:00:00 AM EDT eCW1 ([facility]) [place] [address] [facility] [address] 06/24/2020 12:00:00 AM EDT eCW1 [email or web address] [place] [address] [facility] [address] 06/09/2020 12:00:00 AM EST eCW1 [email or web address] Outpatient Attender: Kathy Mcnair/нАна/Indra/ Reindl 06/07/2020 12:00:00 PM EST MEDENT ([facility]) Office Visit Attender: Florencia Dumont RPA Xu/[place]/Indra/R eindl 05/27/2020 09:30:00 AM EST MEDENT ([facility]) Unknown [address] [facility] [address] 05/20/2020 12:00:00 AM EST eCW1 ([facility]) (TCM) Transition of Care Visit [address] [place] [address] 05/13/2020 12:00:00 AM EST eCW1 ([facility]) Office Visit Attender: Florencia Dumont RPA Xu/[place]/Indra/R eindl 05/12/2020 01:00:00 PM EST MEDENT ([facility]) Unknown [address] [facility] [place] [address] 05/10/2020 12:00:00 AM EST eCW1 ([facility]) Unknown [address] [facility] [address] 05/10/2020 12:00:00 AM EST eCW1 ([facility]) Unknown [address] [facility] [address] 05/05/2020 12:00:00 AM EST eCW1 [facility]) TeleMedicine Phone E/M by Phys 11-20 Min [address] [place] [address] 05/05/2020 12:00:00 AM EST eCW1 ([facility]) Unknown [address] [facility] [address] 05/05/2020 12:00:00 AM EST eCW1 [facility]) Unknown [address] [facility] [place] [address] 04/30/2020 12:00:00 AM EST eCW1 ([facility]) (TCM) Transition of Care Visit [address] [place] [address] 04/29/2020 12:00:00 AM EST eCW1 ([facility]) Unknown [address] [facility] [place] [address] 04/29/2020 12:00:00 AM EST eCW1 ([facility]) Unknown [address] [facility] [address] 04/28/2020 12:00:00 AM EST eCW1 ([facility]) [place] [address] [facility] [address] 04/26/2020 12:00:00 AM EST eCW1 ([facility]) Unknown [address] [facility] [address] 04/23/2020 12:00:00 AM EST eCW1 ([facility]) [place] [address] [facility] [address] 04/22/2020 12:00:00 AM EST eCW1 ([facility]) [place] [address] [facility] [address] 04/21/2020 12:00:00 AM EST eCW1 ([facility]) Office Visit Attender: Florencia Mcnair/[place]/Indra/R eindl 04/12/2020 10:45:00 AM EST MEDENT ([facility] Outpatient [address] [facility] [address] 04/06/2020 12:00:00 AM EST eCW1 ([facility]) Office Visit Attender: Florencia Mcnair/[place]/Indra/R eindl 04/05/2020 08:15:00 AM EST MEDENT ([facility] [place] [address] [facility] [address] 03/31/2020 12:00:00 AM EST eCW1 ([facility]) [place] [address] [facility] [address] 03/31/2020 12:00:00 AM EST eCW1 ([facility]) [place] [address] [facility] [address] 03/29/2020 12:00:00 AM EST eCW1 [facility]) Unknown [address] [facility] [address] 03/24/2020 12:00:00 AM EST eCW1 ([facility]) Unknown [address] [facility] [address] 03/10/2020 12:00:00 AM EST eCW1 ([facility]) Outpatient Attender: Alex Kuhn MD CPSCAORT-CPSCAEND 03/02 02:32:00 PM EST - 03/02/2020 02:33:00 PM EST E10.65 [facility] E10.65 Patient discharged. Unknown [address] [place] [address] 03/01/2020 12:00:00 AM EST eCW1 [email or web address] Outpatient Attender: Kathy Mcnair/Анна/Indra/ Talon 02/23/2020 12:30:00 PM EST MEDENT ([facility]) ([id number]) For Template Wright [address] [place] [address] 02/23/2020 12:00:00 AM EST eCW1 ([facility]) Unknown [address] [place] [address] 02/20/2020 12:00:00 AM EST eCW1 ([email or web address] Office Visit, Est Pt., Level 2 FC [address] [place] [address] 02/19/2020 12:00:00 AM EST eCW1 ([facility]) Unknown [address] [place] [address] 02/19/2020 12:00:00 AM EST eCW1 [email or web address] Office Visit Attender: MOOSE CHAPA [facility] 01/31 12:00:00 PM EST MEDENT ([facility] Unknown [address] [facility] [address] 02/18/2020 12:00:00 AM EST eCW1 ([facility]) [place] [address] [facility] [address] 02/10/2020 12:00:00 AM EST eCW1 ([facility]) Outpatient [address] [facility] [address] 02/09/2020 12:00:00 AM EST eCW1 ([facility]) Unknown [address] [facility] [place] [address] 02/04/2020 12:00:00 AM EST eCW1 ([facility]) Office Visit Attender: OMOSE CHAPA [facility] 05/2019 01:45:00 PM EST MEDENT ([facility] Unknown [address] [facility] [address] 01/26/2020 12:00:00 AM EDT eCW1 ([facility]) Outpatient Attender: MOOSE CHAPA [facility] 01/01 02:30:00 PM EDT MEDENT ([facility] Outpatient Attender: Florencia Mcnair/Анна/Indra/Zeeshan mcdowell 01/20/2020 11:30:00 AM EDT MEDENT ([facility] Outpatient [address] [facility] [address] 01/19/2020 12:00:00 AM EDT eCW1 ([facility]) ([id number]) For Template [facility] [address] [place] [address] 01/09/2020 12:00:00 AM EDT eCW1 ([facility]) Immunizations Vaccine Date Status Description Data Source(s) COVID-19 VACC,MRNA(MODERNA)/PF 09/06/2020 12:00:00 AM EDT completed [facility] COVID-19 VACCINE Moderna 09/06/2020 12:00:00 AM EDT completed [facility] Vaccine Series Complete: YESThis Data wa s Submitted to [facility]. COVID-19 VACC,MRNA(MODERNA)/PF 08/13/2020 12:00:00 AM EDT completed [facility] COVID-19 VACCINE Moderna 08/13/2020 12:00:00 AM EDT completed [facility] Vaccine Series Complete: NOThis Data was Submitted to [facility]. Medications Medication Brand Name Start Date Product Form Dose Route Admi nistrative Instructions Pharmacy Instructions Status Indications Reaction Description Data Source(s) Amlodipine 5 MG Oral Tablet amLODIPine Besylate 5 MG amLODIP ine Besylate 5 MG 02/08/2021 12:00:00 AM EST 1.0 {tablet} active amLODIPine Besylate 5 MG eCW1 ([facility]) Amlodipine 5 MG Oral Tablet amLODIPine Besylate 5 MG amLODIP ine Besylate 5 MG 02/08/2021 12:00:00 AM EST 1.0 {tablet} active amLODIPine Besylate 5 MG eCW1 ([facility]) Amlodipine 5 MG Oral Tablet amLODIPine Besylate 5 MG amLODIP ine Besylate 5 MG 02/08/2021 12:00:00 AM EST 1.0 {tablet} active amLODIPine Besylate 5 MG eCW1 ([facility]) Amlodipine 5 MG Oral Tablet amLODIPine Besylate 5 MG amLODIP ine Besylate 5 MG 02/08/2021 12:00:00 AM EST 1.0 {tablet} active amLODIPine Besylate 5 MG eCW1 ([facility]) Amlodipine 5 MG Oral Tablet amLODIPine Besylate 5 MG amLODIP ine Besylate 5 MG 02/08/2021 12:00:00 AM EST 1.0 {tablet} active amLODIPine Besylate 5 MG eCW1 ([facility]) Bisacodyl 10 MG Rectal Suppository Bisacodyl 10 MG 12/14/2020 12:00 :00 AM EDT 1.0 {suppository_as_needed} active Bisa codyl 10 MG eCW1 ([facility]) Docusate Sodium 100 MG Oral Capsule [Colace] Colace 100 MG C olace 100 MG 12/14/2020 12:00:00 AM EDT 1.0 {capsule_as_needed} suspended Colace 100 MG eCW1 ([facility]) Bisacodyl 10 MG Rectal Suppository Bisacodyl 10 MG 12/14/2020 12:00 :00 AM EDT 1.0 {suppository_as_needed} suspended Bi sacodyl 10 MG eCW1 ([facility]) Bisacodyl 10 MG Rectal Suppository Bisacodyl 10 MG 12/14/2020 12:00 :00 AM EDT 1.0 {suppository_as_needed} suspended Bi sacodyl 10 MG eCW1 ([facility]) Bisacodyl 10 MG Rectal Suppository Bisacodyl 10 MG 12/14/2020 12:00 :00 AM EDT 1.0 {suppository_as_needed} suspended Bi sacodyl 10 MG eCW1 ([facility]) Docusate Sodium 100 MG Oral Capsule [Colace] Colace 100 MG C olace 100 MG 12/14/2020 12:00:00 AM EDT 1.0 {capsule_as_needed} active Colace 100 MG eCW1 ([facility]) Docusate Sodium 100 MG Oral Capsule [Colace] Colace 100 MG C olace 100 MG 12/14/2020 12:00:00 AM EDT 1.0 {capsule_as_needed} suspended Colace 100 MG eCW1 ([facility]) Bisacodyl 10 MG Rectal Suppository Bisacodyl 10 MG 12/14/2020 12:00 :00 AM EDT 1.0 {suppository_as_needed} suspended Bi sacodyl 10 MG eCW1 ([facility]) Bisacodyl 10 MG Rectal Suppository Bisacodyl 10 MG 12/14/2020 12:00 :00 AM EDT 1.0 {suppository_as_needed} suspended Bi sacodyl 10 MG eCW1 ([facility]) Bisacodyl 10 MG Rectal Suppository Bisacodyl 10 MG 12/14/2020 12:00 :00 AM EDT 1.0 {suppository_as_needed} suspended Bi sacodyl 10 MG eCW1 ([facility]) Docusate Sodium 100 MG Oral Capsule [Colace] Colace 100 MG C olace 100 MG 12/14/2020 12:00:00 AM EDT 1.0 {capsule_as_needed} suspended Colace 100 MG eCW1 ([facility]) Docusate Sodium 100 MG Oral Capsule [Colace] Colace 100 MG C olace 100 MG 12/14/2020 12:00:00 AM EDT 1.0 {capsule_as_needed} suspended Colace 100 MG eCW1 ([facility]) Docusate Sodium 100 MG Oral Capsule [Colace] Colace 100 MG C olace 100 MG 12/14/2020 12:00:00 AM EDT 1.0 {capsule_as_needed} suspended Colace 100 MG eCW1 ([facility]) Docusate Sodium 100 MG Oral Capsule [Colace] Colace 100 MG C olace 100 MG 12/14/2020 12:00:00 AM EDT 1.0 {capsule_as_needed} suspended Colace 100 MG eCW1 ([facility]) Bisacodyl 10 MG Rectal Suppository Bisacodyl 10 MG 12/14/2020 12:00 :00 AM EDT 1.0 {suppository_as_needed} suspended Bi sacodyl 10 MG eCW1 ([facility]) Docusate Sodium 100 MG Oral Capsule [Colace] Colace 100 MG C olace 100 MG 12/14/2020 12:00:00 AM EDT 1.0 {capsule_as_needed} suspended Colace 100 MG eCW1 ([facility]) Docusate Sodium 100 MG Oral Capsule [Colace] Colace 100 MG C olace 100 MG 12/14/2020 12:00:00 AM EDT 1.0 {capsule_as_needed} suspended Colace 100 MG eCW1 ([facility]) Bisacodyl 10 MG Rectal Suppository Bisacodyl 10 MG 12/14/2020 12:00 :00 AM EDT 1.0 {suppository_as_needed} suspended Bi sacodyl 10 MG eCW1 ([facility]) Ketoconazole 20 MG/ML Topical Cream Ketoconazole 2 % Ketocon azole 2 % 09/16/2020 12:00:00 AM EDT suspended Keto conazole 2 % eCW1 ([facility]) Ketoconazole 20 MG/ML Topical Cream Ketoconazole 2 % Ketocon azole 2 % 09/16/2020 12:00:00 AM EDT active Ketocon azole 2 % eCW1 ([facility]) Ketoconazole 20 MG/ML Topical Cream Ketoconazole 2 % Ketocon azole 2 % 09/16/2020 12:00:00 AM EDT active Ketocon azole 2 % eCW1 ([facility]) Ketoconazole 20 MG/ML Topical Cream Ketoconazole 2 % Ketocon azole 2 % 09/16/2020 12:00:00 AM EDT suspended Keto conazole 2 % eCW1 ([facility]) Ketoconazole 20 MG/ML Topical Cream Ketoconazole 2 % Ketocon azole 2 % 09/16/2020 12:00:00 AM EDT suspended Keto conazole 2 % eCW1 ([facility]) Ketoconazole 20 MG/ML Topical Cream Ketoconazole 2 % Ketocon azole 2 % 09/16/2020 12:00:00 AM EDT suspended Keto conazole 2 % eCW1 ([facility]) Ketoconazole 20 MG/ML Topical Cream Ketoconazole 2 % Ketocon azole 2 % 09/16/2020 12:00:00 AM EDT suspended Keto conazole 2 % eCW1 ([facility]) Ketoconazole 20 MG/ML Topical Cream Ketoconazole 2 % Ketocon azole 2 % 09/16/2020 12:00:00 AM EDT suspended Keto conazole 2 % eCW1 ([facility]) Ketoconazole 20 MG/ML Topical Cream Ketoconazole 2 % Ketocon azole 2 % 09/16/2020 12:00:00 AM EDT active Ketocon azole 2 % eCW1 ([facility]) Ketoconazole 20 MG/ML Topical Cream Ketoconazole 2 % Ketocon azole 2 % 09/16/2020 12:00:00 AM EDT active Ketocon azole 2 % eCW1 ([facility]) Ketoconazole 20 MG/ML Topical Cream Ketoconazole 2 % Ketocon azole 2 % 09/16/2020 12:00:00 AM EDT suspended Keto conazole 2 % eCW1 ([facility]) Ketoconazole 20 MG/ML Topical Cream Ketoconazole 2 % Ketocon azole 2 % 09/16/2020 12:00:00 AM EDT suspended Keto conazole 2 % eCW1 ([facility]) Prednisone 1 MG Oral Tablet predniSONE 1 MG predniSONE 1 MG 07/27/2020 12:00:00 AM EDT active predniSONE 1 MG e CW1 ([facility]) Prednisone 1 MG Oral Tablet predniSONE 1 MG predniSONE 1 MG 07/27/2020 12:00:00 AM EDT active predniSONE 1 MG e CW1 ([facility]) Prednisone 1 MG Oral Tablet PredniSONE 1 MG PredniSONE 1 MG 07/27/2020 12:00:00 AM EDT active PredniSONE 1 MG e CW1 ([facility]) Prednisone 1 MG Oral Tablet predniSONE 1 MG predniSONE 1 MG 07/27/2020 12:00:00 AM EDT active predniSONE 1 MG e CW1 ([facility]) Prednisone 1 MG Oral Tablet predniSONE 1 MG predniSONE 1 MG 07/27/2020 12:00:00 AM EDT active predniSONE 1 MG e CW1 ([facility]) Prednisone 1 MG Oral Tablet PredniSONE 1 MG PredniSONE 1 MG 07/27/2020 12:00:00 AM EDT active PredniSONE 1 MG e CW1 ([facility]) Prednisone 1 MG Oral Tablet predniSONE 1 MG predniSONE 1 MG 07/27/2020 12:00:00 AM EDT active predniSONE 1 MG e CW1 ([facility]) Prednisone 1 MG Oral Tablet predniSONE 1 MG predniSONE 1 MG 07/27/2020 12:00:00 AM EDT active predniSONE 1 MG e CW1 ([facility]) Prednisone 1 MG Oral Tablet PredniSONE 1 MG PredniSONE 1 MG 07/27/2020 12:00:00 AM EDT active PredniSONE 1 MG e CW1 ([facility]) Prednisone 1 MG Oral Tablet predniSONE 1 MG predniSONE 1 MG 07/27/2020 12:00:00 AM EDT active predniSONE 1 MG e CW1 ([facility]) Prednisone 1 MG Oral Tablet PredniSONE 1 MG PredniSONE 1 MG 07/27/2020 12:00:00 AM EDT active PredniSONE 1 MG e CW1 ([facility]) Prednisone 1 MG Oral Tablet predniSONE 1 MG predniSONE 1 MG 07/27/2020 12:00:00 AM EDT active predniSONE 1 MG e CW1 ([facility]) Prednisone 1 MG Oral Tablet predniSONE 1 MG predniSONE 1 MG 07/27/2020 12:00:00 AM EDT active predniSONE 1 MG e CW1 ([facility]) Prednisone 1 MG Oral Tablet predniSONE 1 MG predniSONE 1 MG 07/27/2020 12:00:00 AM EDT active predniSONE 1 MG e CW1 ([facility]) Prednisone 1 MG Oral Tablet predniSONE 1 MG predniSONE 1 MG 07/27/2020 12:00:00 AM EDT active predniSONE 1 MG e CW1 (Formerly [facility]) Prednisone 1 MG Oral Tablet PredniSONE 1 MG PredniSONE 1 MG 07/27/2020 12:00:00 AM EDT active PredniSONE 1 MG e CW1 (Formerly [facility]) Prednisone 1 MG Oral Tablet PredniSONE 1 MG PredniSONE 1 MG 07/27/2020 12:00:00 AM EDT active PredniSONE 1 MG e CW1 (Formerly [facility]) Prednisone 1 MG Oral Tablet predniSONE 1 MG predniSONE 1 MG 07/27/2020 12:00:00 AM EDT active predniSONE 1 MG e CW1 (Formerly [facility]) aripiprazole 5 MG Oral Tablet Aripiprazole 5 MG Aripiprazole 5 MG 07/06/2020 12:00:00 AM EDT 1.0 {tablet} active Ar ipiprazole 5 MG eCW1 (Formerly [facility]) aripiprazole 5 MG Oral Tablet ARIPiprazole 5 MG ARIPiprazole 5 MG 07/06/2020 12:00:00 AM EDT 1.0 {tablet} active AR IPiprazole 5 MG eCW1 (Formerly [facility]) aripiprazole 5 MG Oral Tablet ARIPiprazole 5 MG ARIPiprazole 5 MG 07/06/2020 12:00:00 AM EDT 1.0 {tablet} active AR IPiprazole 5 MG eCW1 (Formerly [facility]) aripiprazole 5 MG Oral Tablet Aripiprazole 5 MG Aripiprazole 5 MG 07/06/2020 12:00:00 AM EDT 1.0 {tablet} active Ar ipiprazole 5 MG eCW1 (Formerly [facility]) aripiprazole 5 MG Oral Tablet Aripiprazole 5 MG Aripiprazole 5 MG 07/06/2020 12:00:00 AM EDT 1.0 {tablet} active Ar ipiprazole 5 MG eCW1 (Formerly [facility]) aripiprazole 5 MG Oral Tablet ARIPiprazole 5 MG ARIPiprazole 5 MG 07/06/2020 12:00:00 AM EDT 1.0 {tablet} active AR IPiprazole 5 MG eCW1 (Formerly [facility]) aripiprazole 5 MG Oral Tablet ARIPiprazole 5 MG ARIPiprazole 5 MG 07/06/2020 12:00:00 AM EDT 1.0 {tablet} active AR IPiprazole 5 MG eCW1 (Formerly [facility]) aripiprazole 5 MG Oral Tablet Aripiprazole 5 MG Aripiprazole 5 MG 07/06/2020 12:00:00 AM EDT 1.0 {tablet} active Ar ipiprazole 5 MG eCW1 (Formerly [facility]) aripiprazole 5 MG Oral Tablet ARIPiprazole 5 MG ARIPiprazole 5 MG 07/06/2020 12:00:00 AM EDT 1.0 {tablet} active AR IPiprazole 5 MG eCW1 (Formerly [facility]) aripiprazole 5 MG Oral Tablet ARIPiprazole 5 MG ARIPiprazole 5 MG 07/06/2020 12:00:00 AM EDT 1.0 {tablet} active AR IPiprazole 5 MG eCW1 (Formerly [facility]) aripiprazole 5 MG Oral Tablet Aripiprazole 5 MG Aripiprazole 5 MG 07/06/2020 12:00:00 AM EDT 1.0 {tablet} active Ar ipiprazole 5 MG eCW1 (Formerly [facility]) aripiprazole 5 MG Oral Tablet Aripiprazole 5 MG Aripiprazole 5 MG 07/06/2020 12:00:00 AM EDT 1.0 {tablet} active Ar ipiprazole 5 MG eCW1 (Formerly [facility]) aripiprazole 5 MG Oral Tablet ARIPiprazole 5 MG ARIPiprazole 5 MG 07/06/2020 12:00:00 AM EDT 1.0 {tablet} active AR IPiprazole 5 MG eCW1 (Formerly [facility]) aripiprazole 5 MG Oral Tablet Aripiprazole 5 MG Aripiprazole 5 MG 07/06/2020 12:00:00 AM EDT 1.0 {tablet} active Ar ipiprazole 5 MG eCW1 (Formerly [facility]) aripiprazole 5 MG Oral Tablet ARIPiprazole 5 MG ARIPiprazole 5 MG 07/06/2020 12:00:00 AM EDT 1.0 {tablet} active AR IPiprazole 5 MG eCW1 (Formerly [facility]) aripiprazole 5 MG Oral Tablet ARIPiprazole 5 MG ARIPiprazole 5 MG 07/06/2020 12:00:00 AM EDT 1.0 {tablet} active AR IPiprazole 5 MG eCW1 (Formerly [facility]) aripiprazole 5 MG Oral Tablet ARIPiprazole 5 MG ARIPiprazole 5 MG 07/06/2020 12:00:00 AM EDT 1.0 {tablet} active AR IPiprazole 5 MG eCW1 (Formerly [facility]) aripiprazole 5 MG Oral Tablet ARIPiprazole 5 MG ARIPiprazole 5 MG 07/06/2020 12:00:00 AM EDT 1.0 {tablet} active AR IPiprazole 5 MG eCW1 (Formerly [facility]) aripiprazole 5 MG Oral Tablet ARIPiprazole 5 MG ARIPiprazole 5 MG 07/06/2020 12:00:00 AM EDT 1.0 {tablet} active AR IPiprazole 5 MG eCW1 (Formerly [facility]) aripiprazole 5 MG Oral Tablet ARIPiprazole 5 MG ARIPiprazole 5 MG 07/06/2020 12:00:00 AM EDT 1.0 {tablet} active AR IPiprazole 5 MG eCW1 (Formerly [facility]) aripiprazole 5 MG Oral Tablet ARIPiprazole 5 MG ARIPiprazole 5 MG 07/06/2020 12:00:00 AM EDT 1.0 {tablet} active AR IPiprazole 5 MG eCW1 (Formerly [facility]) aripiprazole 5 MG Oral Tablet ARIPiprazole 5 MG ARIPiprazole 5 MG 07/06/2020 12:00:00 AM EDT 1.0 {tablet} active AR IPiprazole 5 MG eCW1 (Formerly [facility]) aripiprazole 5 MG Oral Tablet Aripiprazole 5 MG Aripiprazole 5 MG 07/06/2020 12:00:00 AM EDT 1.0 {tablet} active Ar ipiprazole 5 MG eCW1 (Formerly [facility]) aripiprazole 5 MG Oral Tablet Aripiprazole 5 MG Aripiprazole 5 MG 07/06/2020 12:00:00 AM EDT 1.0 {tablet} active Ar ipiprazole 5 MG eCW1 (Formerly [facility]) aripiprazole 5 MG Oral Tablet ARIPiprazole 5 MG ARIPiprazole 5 MG 07/06/2020 12:00:00 AM EDT 1.0 {tablet} active AR IPiprazole 5 MG eCW1 (Formerly [facility]) Cephalexin 500 MG Oral Capsule Cephalexin 05/27/2020 12:00:00 AM EST ORAL completed [facility] ([facility]) Cephalexin 500 MG Oral Capsule [Keflex] Keflex 04/12/2020 12:00:0 0 AM EST ORAL completed [facility] ([facility]) Misc. Devices - UNK 03/11/2020 12:00:00 AM EST active Misc. Devices - eCW1 (Formerly [facility]) Misc. Devices - UNK 03/11/2020 12:00:00 AM EST active Misc. Devices - eCW1 (Formerly [facility]) Misc. Devices - UNK 03/11/2020 12:00:00 AM EST active Misc. Devices - eCW1 (Formerly [facility]) Misc. Devices - UNK 03/11/2020 12:00:00 AM EST active Misc. Devices - eCW1 (Formerly [facility]) Misc. Devices - UNK 03/11/2020 12:00:00 AM EST active Misc. Devices - eCW1 (Formerly [facility]) Misc. Devices - UNK 03/11/2020 12:00:00 AM EST active Misc. Devices - eCW1 (Formerly [facility]) Misc. Devices - UNK 03/11/2020 12:00:00 AM EST active Misc. Devices - eCW1 (Formerly [facility]) Misc. Devices - UNK 03/11/2020 12:00:00 AM EST active Misc. Devices - eCW1 (Formerly [facility]) Misc. Devices - UNK 03/11/2020 12:00:00 AM EST active Misc. Devices - eCW1 (Formerly [facility]) Misc. Devices - UNK 03/11/2020 12:00:00 AM EST active Misc. Devices - eCW1 (Formerly [facility]) Misc. Devices - UNK 03/11/2020 12:00:00 AM EST active Misc. Devices - eCW1 (Formerly [facility]) Misc. Devices - UNK 03/11/2020 12:00:00 AM EST active Misc. Devices - eCW1 (Formerly [facility]) Misc. Devices - UNK 03/11/2020 12:00:00 AM EST active Misc. Devices - eCW1 (Formerly [facility]) Misc. Devices - UNK 03/11/2020 12:00:00 AM EST active Misc. Devices - eCW1 (Formerly [facility]) Misc. Devices - UNK 03/11/2020 12:00:00 AM EST active Misc. Devices - eCW1 (Formerly [facility]) Misc. Devices - UNK 03/11/2020 12:00:00 AM EST active Misc. Devices - eCW1 (Formerly [facility]) Misc. Devices - UNK 03/11/2020 12:00:00 AM EST active Misc. Devices - eCW1 (Formerly [facility]) Misc. Devices - UNK 03/11/2020 12:00:00 AM EST active Misc. Devices - eCW1 (Formerly [facility]) Misc. Devices - UNK 03/11/2020 12:00:00 AM EST active Misc. Devices - eCW1 (Formerly [facility]) Misc. Devices - UNK 03/11/2020 12:00:00 AM EST active Misc. Devices - eCW1 (Formerly [facility]) Wheelchair - Wheelchair - 02/24/2020 12:00:00 AM EST active Wheelchair - eCW1 (Formerly [facility]) Wheelchair - Wheelchair - 02/24/2020 12:00:00 AM EST active Wheelchair - eCW1 (Formerly [facility]) Wheelchair - Wheelchair - 02/24/2020 12:00:00 AM EST active Wheelchair - eCW1 (Formerly [facility]) Wheelchair - Wheelchair - 02/24/2020 12:00:00 AM EST active Wheelchair - eCW1 (Formerly [facility]) Wheelchair - Wheelchair - 02/24/2020 12:00:00 AM EST active Wheelchair - eCW1 (Formerly [facility]) Wheelchair - Wheelchair - 02/24/2020 12:00:00 AM EST active Wheelchair - eCW1 (Formerly [facility]) Wheelchair - Wheelchair - 02/24/2020 12:00:00 AM EST active Wheelchair - eCW1 (Formerly [facility]) Wheelchair - Wheelchair - 02/24/2020 12:00:00 AM EST active Wheelchair - eCW1 (Formerly [facility]) Wheelchair - Wheelchair - 02/24/2020 12:00:00 AM EST active Wheelchair - eCW1 (Formerly [facility]) Wheelchair - Wheelchair - 02/24/2020 12:00:00 AM EST active Wheelchair - eCW1 (Formerly [facility]) Wheelchair - Wheelchair - 02/24/2020 12:00:00 AM EST active Wheelchair - eCW1 (Formerly [facility]) Wheelchair - Wheelchair - 02/24/2020 12:00:00 AM EST active Wheelchair - eCW1 (Formerly [facility]) Wheelchair - Wheelchair - 02/24/2020 12:00:00 AM EST active Wheelchair - eCW1 (Formerly [facility]) Wheelchair - Wheelchair - 02/24/2020 12:00:00 AM EST active Wheelchair - eCW1 (Formerly [facility]) Wheelchair - Wheelchair - 02/24/2020 12:00:00 AM EST active Wheelchair - eCW1 (Formerly [facility]) Wheelchair - Wheelchair - 02/24/2020 12:00:00 AM EST active Wheelchair - eCW1 (Formerly [facility]) Wheelchair - Wheelchair - 02/24/2020 12:00:00 AM EST active Wheelchair - eCW1 (Formerly [facility]) Wheelchair - Wheelchair - 02/24/2020 12:00:00 AM EST active Wheelchair - eCW1 (Formerly [facility]) Wheelchair - Wheelchair - 02/24/2020 12:00:00 AM EST active Wheelchair - eCW1 (Formerly [facility]) Wheelchair - Wheelchair - 02/24/2020 12:00:00 AM EST active Wheelchair - eCW1 (Formerly [facility]) Wheelchair - Wheelchair - 02/24/2020 12:00:00 AM EST active Wheelchair - eCW1 (Formerly [facility]) Wheelchair - Wheelchair - 02/24/2020 12:00:00 AM EST active Wheelchair - eCW1 (Formerly [facility]) Wheelchair - Wheelchair - 02/24/2020 12:00:00 AM EST active Wheelchair - eCW1 (Formerly [facility]) Cephalexin 500 MG Oral Capsule Cephalexin 02/02/2020 12:00:00 AM EST ORAL active [facility] ([facility] tramadol hydrochloride 50 MG Oral Tablet Tramadol HCL 02/02/2020 12:00:00 AM EST active [facility] ([facility] Insurance Providers Payer name Policy type / Coverage type Policy ID Covered libertarian ID Covered libertarian's relationship to wright Policy Wright Plan Information MEDICARE [id number] SELF [id number] A [employer]RIEL RHONDA UNAVAILABLE SELF UNAVAILABLE MEDICARE PART A [id number] Patient [id number] [employer]RI[employer] RHONDA [id number] SELF [id number] PERSONAL PAY UNAVAILABLE SELF UNAVA ILABLE MEDICARE [id number] SP [id number] A MEDICARE A [id number] Self [id number] A MEDICARE [id number] SP [id number] A MEDICAID M [id number] Self [id number] [place] [id number] [id number] [place] [id number] SP [id number] R EMEDNY [id number] SP [id number] MEDICAID [id number] SP [id number] [facility] MEDICARE [id number] S [id number] [facility] [id number] SP [id number] MEDICARE COMPLETE [id number] SP [id number] WELLCARE [id number] SP [id number] WELLCARE [id number] SP [id number] WELLCARE O [id number] S [id number] WELLCARE [id number] S [id number] WELLCARE O [id number] S [id number] MEDICARE [id number] SP [id number] MEDICAID [id number] SP [id number] MEDICARE C [id number] S [id number] WELLCARE [id number] S [id number] MEDICARE [id number] S [id number] WELLCARE [id number] S [id number] MEDICARE -RECURRING [id number] 18 [id number] MEDICAID -RECURRING [id number] ANSI-Medicaid [id number] ANSI-Medicare Part B [id number] ANSI-Medicaid [id number] ANSI-Medicare Part B [id number] ANSI-Medicare Part B [id number] ANSI-Medicaid [id number] ANSI-Medicare Part B [id number] ANSI-Medicaid [id number] ANSI-Medicaid [id number] ANSI-Medicare Part B [id number] ANSI-Medicaid [id number] ANSI-Medicare Part B [id number] ANSI-Medicaid [id number] ANSI-Medicare Part B [id number] ANSI-Medicaid [id number] ANSI-Medicare Part B [id number] ANSI-Medicare Part B [id number] ANSI-Medicaid [id number] ANSI-Medicare Part B [id number] ANSI-Medicaid [id number] ANSI-Medicare Part B [id number] ANSI-Medicaid [id number] ANSI-Medicare Part B [id number] ANSI-Medicaid [id number] ANSI-Medicaid [id number] ANSI-Medicare Part B [id number] ANSI-Medicare Part B [id number] ANSI-Medicaid [id number] MEDICARE -RECURRING [id number] 18 [id number] ANSI-Medicaid [id number] ANSI-Medicare Part B [id number] ANSI-Medicaid [id number] ANSI-Medicare Part B [id number] ANSI-Medicare Part B [id number] ANSI-Medicaid [id number] Medicaid [place] Medigap Part B [id number] Self [id number] Medicare [facility] Medicare Primary [id number] Self [id number] ANSI-Medicare Part B [id number] ANSI-Medicaid [id number] ANSI-Medicaid [id number] ANSI-Medicare Part B [id number] ANSI-Medicaid [id number] ANSI-Medicare Part B [id number] ANSI-Medicare Part B [id number] ANSI-Medicaid [id number] ANSI-Medicare Part B [id number] ANSI-Medicaid [id number] MEDICARE [id number] A ANSI-Medicare Part B [id number] ANSI-Medicaid [id number] ANSI-Medicaid [id number] ANSI-Medicare Part B [id number] ANSI-Medicare Part B [id number] ANSI-Medicaid [id number] ANSI-Medicaid [id number] ANSI-Medicare Part B [id number] ANSI-Medicaid [id number] ANSI-Medicare Part B [id number] ANSI-Medicare Part B [id number] ANSI-Medicaid [id number] ANSI-Medicaid [id number] ANSI-Medicare Part B [id number] ANSI-Medicaid [id number] ANSI-Medicare Part B [id number] ANSI-Medicaid [id number] ANSI-Medicare Part B [id number] ANSI-Medicaid [id number] ANSI-Medicare Part B [id number] ANSI-Medicaid [id number] ANSI-Medicare Part B [id number] ANSI-Medicare Part B [id number] ANSI-Medicaid [id number] ANSI-Medicare Part B [id number] ANSI-Medicaid [id number] MEDICARE C [id number] S [id number] A [place] MEDIC[place] PART B C [id number] S [id number] Medicaid [place] Med[place] Part B [id number] Self [id number] [place] Primary [id number] Self [id number] [facility] C [id number] S [id number] [place] Part B [id number] Self [id number] Medicare [facility] Medicare Primary [id number] Self [id number] [place] [id number] Self [id number] Medicare [facility] Medicare Primary [id number] Self [id number] MEDICAID [id number] SP [id number] MEDICAID [id number] SP [id number] MEDICAID -O/P [id number] 18 [id number] MEDICARE -O/P [id number] 18 [id number] OTHER WORKERS COMPENSATION [id number] SP [id number] MEDICAID -CLINIC [id number] MEDICARE -CLINIC [id number] WORKMANS COMPENSATION -O/ [id number] 18 [id number] MEDICAID -PHYSICIAN [id number] WORKMANS COMPENSATION -O/P [id number] 18 [id number] MEDICARE -PHYSICIAN [id number] 18 [id number] [facility] MEDICAID [id number] SP [id number] MEDICARE COMPLETE [id number] SP [id number] MEDICARE COMPLETE [id number] SP [id number] MEDICARE COMPLETE [id number] SP [id number] [facility] MEDICARE [id number] S [id number] MEDICAID [id number] [facility] [id number] SP [id number] MEDICARE [id number] SP [id number] WELLCARE [id number] SP [id number] MEDICARE [id number] SP [id number] [place] [id number] SP [id number] MEDICARE COMPLETE-[facility] O [id number] S [id number] MEDICAID M [id number] S [id number] MEDICARE COMPLETE-U[employer] O [id number] S [id number] Problems, Conditions, and Diagnoses Code Display Name Description Problem Type Effective Dates Data Source(s) 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 HOME (CU RRENT) USE OF INSULIN Diagnosis 01/24/2021 12:59:00 PM EDT [facility] Z96.41 Presence of insulin pump (external) (int ernal) PRESENCE OF INSULIN PUMP (EXTERNAL) (INTERNAL) Diagnosis 01/24/2021 12:59:00 PM EDT [facility] E10.65 Type 1 diabetes mellitus with hyperglyce sera TYPE 1 DIABETES MELLITUS WITH HYPERGLYCEMIA Diagnosis 01/24/2021 12:59:00 PM EDT [facility] Z87.891 Personal history of nicotine dependence Personal history of nicotine dependence Diagnosis 12/14/2020 12:00:00 AM EDT [facility] ([facility]) Z86.16 Z86.16 Personal history of COVID-19 Diagnosis 021 12:00:00 AM EDT [facility] ([facility]) 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 Diagnosis 12/14/2020 12:00:00 AM EDT [facility] ([facility]) 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 s care home (current) use of anticoagulants Diagnosis 12/14/2020 12:00:00 AM EDT [facility] ([facility]) Z79.82 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 (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 (cu rrent) use of aspirin Diagnosis 12/14/2020 12:00:00 AM EDT [facility] ([facility] ) E10.319 Type 1 diabetes mellitus wit h unspecified diabetic retinopathy without macular edema Type 1 diabetes mellitus with unspecifie d diabetic retinopathy without macular edema Diagnosis 12/14/2020 12:00:00 AM EDT [facility] ([facility]) M31.6 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 Diagnosis 12/14/2020 12:00:00 AM EDT [facility] ([facility]) E78.5 Hyperlipidemia, unspecified Hyperlipidemia, unspecifie d Diagnosis 12/14/2020 12:00:00 AM EDT [facility] ([facility]) G43.909 Migraine, unspecified, not intractable, without status migrainosus Migraine, unspecified, not intractable, without status migrainosus Diagnosis 12/14/2020 12:00:00 AM EDT [facility] ([facility]) E27.40 Unspecified adrenocortical insufficiency Unspecified adrenocortical insufficiency Diagnosis 12/14/2020 12:00:00 AM EDT [facility] ([facility]) M06.9 Rheumatoid arthritis, unspecified Rheumatoid art hritis, unspecified Diagnosis 12/14/2020 12:00:00 AM EDT [facility] ([facility] ) N40.1 Benign prostatic hyperplasia with lower urinary tract symptoms Benign prostatic hyperplasia with lower urinary tract symptoms Diagnosis 12/14/2020 12:00:00 AM EDT [facility] ([facility]) L40.9 Psoriasis, unspecified Psoriasis, unspecified Diagnosi s 12/14/2020 12:00:00 AM EDT [facility] ([facility]) R11.2 Nausea with vomiting, unspecified Nausea with vo miting, unspecified Diagnosis 12/14/2020 12:00:00 AM EDT [facility] ([facility] ) T40.7X1D Poisoning by cannabis (deriv atives), accidental (unintentional), subsequent encounter Poisoning by cannabis (derivatives), acc idental (unintentional), subsequent encounter Diagnosis 12/14/2020 12:00:00 AM EDT [facility] ([facility]) E10.43 Type 1 diabetes mellitus with diabetic a utonomic (poly)neuropathy Type 1 diabetes mellitus with diabetic autonomic (poly)neuropathy Diagnosis 12/14/2020 12:00:00 AM EDT [facility] ([facility]) E10.21 Type 1 diabetes mellitus with 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 Diagnosis 12/14/2020 12:00:00 AM ED T [facility] ([facility]) E10.42 Type 1 diabetes mellitus with diabetic p olyneuropathy Type 1 diabetes mellitus with diabetic polyneuropathy Diagnosis 12/14/2020 12:00:00 AM EDT [facility] ([facility]) E10.51 Type 1 diabetes mellitus wit h diabetic peripheral angiopathy without gangrene Type 1 diabetes mellitus with diabetic p eripheral angiopathy without gangrene Diagnosis 12/14/2020 12:00:00 AM EDT [facility] ([facility]) Z89.512 Acquired absence of left leg below knee Acquired absence of left leg below knee Diagnosis 12/14/2020 12:00:00 AM EDT [facility] ([facility]) M86.9 Osteomyelitis, unspecified Osteomyelitis, unspecified Diagnosis 12/14/2020 12:00:00 AM EDT [facility] ([facility]) E10.69 Type 1 diabetes mellitus with other spec ified complication Type 1 diabetes mellitus with other specified complication Diagnosis 12:00:00 AM EDT [facility] ([facility]) 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.43 Infection of amputation stump, right low er extremity Infection of amputation stump, right lower extremity Diagnosis 12/14/2020 12:00:00 AM EDT [facility] ([facility]) T87.89 Other complications of amputation stump Other complications of amputation stump Diagnosis 12/14/2020 12:00:00 AM EDT ND ([facility]) S88.912A 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, level unspecified, initial encounter COMPLETE TRAUMATIC AMPUTATION OF L LOW LEG, LEVEL UNSP , INIT Diagnosis 10/11/2020 10:38:00 AM EDT [facility] S88.911A Complete traumatic amputatio n of right lower leg, level unspecified, initial encounter COMPLETE TRAUMATIC AMPUTATION OF R LOW LEG, LEVEL UNSP , INIT Diagnosis 10/11/2020 10:38:00 AM EDT [facility] E78.5 Hyperlipidemia, unspecified HYPERLIPIDEMIA, UNSPECIFIE D Diagnosis 10/11/2020 10:38:00 AM EDT [facility] E27.40 Unspecified adrenocortical insufficiency UNSPECIFIED ADRENOCORTICAL INSUFFICIENCY Diagnosis 10/11/2020 10:38:00 AM EDT [facility] T87.89 [id number] Non-healing amputation site Problem 03/02/20 21 12:00:00 AM EST eCW1 ([facility]) T81.30XA Wound dehiscence Wound dehiscence Problem 03/02/2021 12 :00:00 AM EST eCW1 ([facility]) M86.9 [id number] Osteomyelitis, lower leg Problem 02/21/2021 12:00:00 AM EST eCW1 ([facility]) M86.9 [id number] Osteomyelitis of other site, unspecified type Problem 01/07/2021 12:00:00 AM EDT eCW1 ([facility]) E16.1 Hypoglycemia Hypoglycemia Problem 01/06/2021 12:00:00 A M EDT [facility] ([facility], ) E11.59 Peripheral vascular disorder due to diab etes mellitus Peripheral vascular disorder due to diabetes mellitus Problem 01/06/2021 12:00:00 AM ED T [facility] ([facility] ) T81.30xA Traumatic wound dehiscence Traumatic wound dehiscence Problem 12/17/2020 12:00:00 AM EDT [facility] ([facility], ) 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 Problem 12/17/2020 12:00:00 AM EDT [facility] ([facility] ) D61.818 [id number] Pancytopenia Problem 12/16/2020 12:00:00 AM EDT eCW1 ([facility]) S88.111A [id number] Below-knee amputation of right lower extr emity Problem 04/06/2020 12:00:00 AM EST eCW1 ([facility]) Z89.511 [id number] Acquired absence of right leg below knee Problem 03/11/2020 12:00:00 AM EST eCW1 ([facility]) Z89.512 [id number] 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 Problem 03/11/2020 12:00:00 AM EST eCW1 ([facility]) S88.119A [id number] Amputation below knee Problem 02/24/2020 12: 00:00 AM EST eCW1 ([facility]) M86.9 [id number] Osteomyelitis of right foot, unspecif ied type Problem 02/19/2020 12:00:00 AM EST eCW1 ([facility]) [id number] O/E - Amputated left below knee O/E - Amputated left below knee Problem 01/26/2020 12:00:00 AM EDT [facility] ([facility] [id number] Pain in limb Pain in limb Problem 01/26/2020 12:00:00 A M EDT [facility] ([facility] [id number] Gangrenous disorder Gangrenous disorder Problem 1 12:00:00 AM EDT [facility] ([facility] [id number] Pressure ulcer of right foot stage 4 Pre ssure ulcer of right foot stage 4 Problem 01/26/2020 12:00:00 AM EDT [facility] ([facility] [id number] Type 2 diabetes mellitus with ulcer Type 2 diabetes mellitus with ulcer Problem 01/26/2020 12:00:00 AM EDT [facility] ([facility] Surgeries/Procedures Procedure Description Date Indications Data Source(s) Medication: Silver Nitrate Stick topically 03/02/2021 12:00:00 AM EST eCW1 ([facility]) FINE NEEDLE ASPIRATION W/O IMAGING GUIDANCE 03/02/2021 12:00:00 AM EST eC ([facility]) Hospital outpatient clinic visit for assessment and ma nagement of a patient Hospital Outpatient Clinic Visit 01/24/2021 12:00:[address] [facility] GLUC BLD GLUC MNTR DEV CLEARED FDA SPEC HOME USE GLUCOSE BLO OD TEST 01/24/2021 12:00:[address] [facility] COLLECTION VENOUS BLOOD VENIPUNCTURE ROUTINE VENIPUNCTURE 12:00:[address] [facility] HEMOGLOBIN GLYCOSYLATED A1C GLYCOSYLATED HEMOGLOBIN TEST 12:00:[address] [facility] LIPID PANEL LIPID PANEL 01/24/2021 12:00:00 AM [facility] BASIC METABOLIC PANEL CALCIUM TOTAL METABOLIC PANEL TOTAL CA 01/24/2021 12:00:[address] [facility] Debridement Skin, Subcutaneous Tissue & Muscle 12:00:00 AM EDT MED[facility] ([facility], ) OFFICE OUTPATIENT VISIT 15 MINUTES 01/06/2021 12:00:00 AM EDT MED[facility] ([facility]) AMP LEG THRU TIBIA&FIBULA RE-AMPUTATION 12/08/2020 12: 00:00 AM EDT [facility] ([facility]) OFFICE OUTPATIENT VISIT 15 MINUTES 11/11/2020 12:00:00 AM EDT [facility] ([facility]) OFFICE OUTPATIENT VISIT 15 MINUTES 11/01/2020 12:00:00 AM EDT [facility] ([facility]) COMPREHENSIVE METABOLIC PANEL COMPREHEN METABOLIC PANEL 09/30 12:00:[address] [facility] OFFICE OUTPATIENT VISIT 15 MINUTES 08/12/2020 12:00:00 AM EDT [facility] ([facility]) OFFICE OUTPATIENT VISIT 15 MINUTES 07/08/2020 12:00:00 AM EDT [facility] ([facility]) OFFICE OUTPATIENT VISIT 15 MINUTES 06/07/2020 12:00:00 AM EST [facility] ([facility]) Amputation Below Knee 03/03/2020 12:00:00 AM EST [facility] ([facility]) FINE NEEDLE ASPIRATION W/O IMAGING GUIDANCE 02/23/2020 12:00:00 AM EST eCW1 ([facility]) Amputation Metatarsal W/Toe 01/28/2020 12:00:00 AM EDT [facility] ([facility] FINE NEEDLE ASPIRATION W/O IMAGING GUIDANCE 01/19/2020 12:00:00 AM EDT eCW1 ([facility]) FINE NEEDLE ASPIRATION W/O IMAGING GUIDANCE 01/09/2020 12:00:00 AM EDT eCW1 ([facility]) Results ID Date Data Source [id number] 02/11/2021 10:15:00 PM EST [facility] Name Value Range Interpretation Code Description Data Mireille rce(s) Supporting Document(s) SARS coronavirus 2 RNA [Presence] in Res piratory specimen by DAILY with probe detection NEGATIVE [facility] This lab was ordered by [facility] a nd reported by [facility]. ID Date Data Source [id number] 01/24/2021 05:41:00 PM EDT [facility] Name Value Range Interpretation Code Description Data Mireille rce(s) Supporting Document(s) Hemoglobin A1C % Less than 5.7% Above high normal [facility] HBA1C: Normal: Less than 5.7% Prediabetes: 5.7% to 6.4% Diabetes: 6.5% or higher HA1C % vs Estimated Average Glucose (eAG) % eAG % eAG 6% 126 mg/dL 10% 240 mg/dL 7% 154 mg/dL 11% 269 mg/dL 8% 183 mg/dL 12% 298 mg/dL 9% 212 mg/dL Reference: [place] [employer], 2017 ID Date Data Source [id number] 01/24/2021 05:34:00 PM EDT [facility] Name Value Range Interpretation Code Description Data [facility] rce(s) Supporting Document(s) Sodium 137 mmol/L 137-145 Normal (applies to non-numeric resul ts) [facility] Potassium 3.5-5.1 Normal (applies to non-numeric resul ts) [facility] Chloride 107 mmol/L 98-112 Normal (applies to non-numeric resul ts) [facility] Carbon Dioxide CO2 22.0-33.0 Normal (applies to non-numer ic results) [facility] Anion Gap 4.0-11.0 Normal (applies to non-numeric resul ts) [facility] BUN 16 mg/dL 9-20 Normal (applies to non-numeric resul ts) [facility] Creatinine 0.80-1.50 Normal (applies to non-numeric resul ts) [facility] GFR 55 mL/min >60 Below low normal [facility] Result based on MDRD formula. Glucose Level 107 mg/dL 74-99 Above high normal [facility] The reference range is only applicable w hen fasting. Calcium-Uncorrected 8.4-10.2 Normal (applies to non-nume nelson results) [facility] Corrected Calcium 8.4-10.2 Normal (applies to non-numeri c results) [facility] ID Date Data Source [id number] 01/24/2021 05:34:00 PM EDT [facility] Name Value Range Interpretation Code Description Data Mireille rce(s) Supporting Document(s) Triglycerides 52 mg/dL 0-150 Normal (applies to non-numeric re sults) [facility] Cholesterol 119 mg/dL 0-200 Normal (applies to non-numeric resu lts) [facility] LDL Cholesterol,Direct 50 mg/dL <100 Normal (applies to non-n umeric results) [facility] LDL Interpretative Data Optimal <100 (mg/dL) Near optimal 100-129 (mg/dL) Borderline High 130-159 (mg/dL) High 160-189 (mg/dL) Very High >190 (mg/dL) HDL Cholesterol 63 mg/dL 40-60 Above high normal [facility] CHOL/HDL Ratio Normal (applies to non-numeric r esults) [facility] NATIONAL CHOLESTEROL GUIDEL [facility], LUNG [...] Average 13.5 11.0 ID Date Data Source [id number] 01/10/2021 06:21:00 AM EDT [facility] Name Value Range Interpretation Code Description Data Mireille rce(s) Supporting Document(s) SARS coronavirus 2 RNA [Presence] in Res piratory specimen by DAILY with probe detection NEGATIVE [facility] This lab was ordered by [facility] a nd reported by [facility]. ID Date Data Source [id number] 01/02/2021 02:12:00 PM EDT [facility] Name Value Range Interpretation Code Description Data Mireille rce(s) Supporting Document(s) SARS-CoV-2 (COVID 19) NEGATIVE - SARS-CoV-2 (COVID19) [facility] This lab was ordered by [facility] a nd reported by [facility]. ID Date Data Source [id number] 12/19/2020 11:07:00 PM EDT [facility] Name Value Range Interpretation Code Description Data Mireille rce(s) Supporting Document(s) SARS coronavirus 2 RNA [Presence] in Res piratory specimen by DAILY with probe detection NEGATIVE [facility] This lab was ordered by [facility] a nd reported by [facility]. ID Date Data Source [id number] 12/06/2020 12:21:00 AM EDT [facility] Name Value Range Interpretation Code Description Data Mireille rce(s) Supporting Document(s) SARS coronavirus 2 RNA [Presence] in Res piratory specimen by DAILY with probe detection NEGATIVE [facility] This lab was ordered by [facility] a nd reported by [facility]. ID Date Data Source [id number] 10/11/2020 01:58:00 PM EDT [facility] Name Value Range Interpretation Code Description Data Mireille rce(s) Supporting Document(s) Hemoglobin A1C % Less than 5.7% Above high normal [facility] HBA1C: Normal: Less than 5.7% Prediabetes: 5.7% to 6.4% Diabetes: 6.5% or higher HA1C % vs Estimated Average Glucose (eAG) % eAG % eAG 6% 126 mg/dL 10% 240 mg/dL 7% 154 mg/dL 11% 269 mg/dL 8% 183 mg/dL 12% 298 mg/dL 9% 212 mg/dL Reference: [place] [employer], 2017 ID Date Data Source [id number] 10/11/2020 01:21:00 PM EDT [facility] Name Value Range Interpretation Code Description Data Mireille rce(s) Supporting Document(s) Sodium 137 mmol/L 137-145 Normal (applies to non-numeric resul ts) [facility] Potassium 3.5-5.1 Normal (applies to non-numeric resul ts) [facility] Chloride 102 mmol/L 98-112 Normal (applies to non-numeric resul ts) [facility] Carbon Dioxide CO2 22.0-33.0 Normal (applies to non-numer ic results) [facility] Anion Gap 4.0-11.0 Normal (applies to non-numeric resul ts) [facility] BUN 16 mg/dL 9-20 Normal (applies to non-numeric resul ts) [facility] Creatinine 0.80-1.50 Normal (applies to non-numeric resul ts) [facility] GFR 66 mL/min >60 Normal (applies to non-numeric resul ts) [facility] Result based on MDRD formula. Glucose Level 194 mg/dL 74-99 Above high normal [facility] The reference range is only applicable w hen fasting. Calcium-Uncorrected 8.4-10.2 Normal (applies to non-nume nelson results) [facility] Corrected Calcium 8.4-10.2 Normal (applies to non-numeri c results) [facility] Bilirubin,Total 0.2-1.3 Normal (applies to non-numeric results) [facility] SGOT(AST) 42 U/L 17-59 Normal (applies to non-numeric resul ts) [facility] SGPT(ALT) 57 U/L 21-72 Normal (applies to non-numeric resul ts) [facility] Alkaline Phosphatase 89 U/L 38-126 Normal (applies to non-num gage results) [facility] can increase Alkaline Phosp le vels up to 2 times the normal adult value. Normal values for children and adolescents are 2 to 3 times the normal adult value. Total Protein 6.3-8.2 Normal (applies to non-numeric re sults) [facility] Albumin 3.5-5.0 Normal (applies to non-numeric resul ts) [facility] ID Date Data Source [id number] 08/14/2020 10:59:00 PM EDT [facility] Name Value Range Interpretation Code Description Data Mireille rce(s) Supporting Document(s) SARS-CoV-2 (COVID 19) NEGATIVE - SARS-CoV-2 (COVID19) [facility] This lab was ordered by [facility] a nd reported by [facility]. ID Date Data Source [id number] 07/09/2020 03:28:00 PM EDT [facility] Name Value Range Interpretation Code Description Data Mireille rce(s) Supporting Document(s) Hemoglobin A1C % Less than 5.7% Above high normal [facility] HBA1C: Normal: Less than 5.7% Prediabetes: 5.7% to 6.4% Diabetes: 6.5% or higher HA1C % vs Estimated Average Glucose (eAG) % eAG % eAG 6% 126 mg/dL 10% 240 mg/dL 7% 154 mg/dL 11% 269 mg/dL 8% 183 mg/dL 12% 298 mg/dL 9% 212 mg/dL Reference: [place] [employer], 2017 ID Date Data Source [id number] 07/09/2020 03:23:00 PM EDT [facility] Name Value Range Interpretation Code Description Data Mireille rce(s) Supporting Document(s) Sodium 136 mmol/L 137-145 Below low normal [facility] Potassium 3.5-5.1 Normal (applies to non-numeric resul ts) [facility] Chloride 101 mmol/L 98-112 Normal (applies to non-numeric resul ts) [facility] Carbon Dioxide CO2 22.0-33.0 Normal (applies to non-numer ic results) [facility] Anion Gap 4.0-11.0 Normal (applies to non-numeric resul ts) [facility] BUN 17 mg/dL 9-20 Normal (applies to non-numeric resul ts) [facility] Creatinine 0.80-1.50 Normal (applies to non-numeric resul ts) [facility] GFR 57 mL/min >60 Below low normal [facility] Result based on MDRD formula. Glucose Level 296 mg/dL 74-99 Above high normal [facility] The reference range is only applicable w hen fasting. Calcium-Uncorrected 8.4-10.2 Normal (applies to non-nume nelson results) [facility] Corrected Calcium 8.4-10.2 Normal (applies to non-numeri c results) [facility] ID Date Data Source [id number] 05/02/2020 02:06:00 AM EST [facility] Name Value Range Interpretation Code Description Data Mireille rce(s) Supporting Document(s) SARS coronavirus 2 RNA [Presence] in Res piratory specimen by DAILY with probe detection POSITIVE [facility] This lab was ordered by [facility] a nd reported by [facility]. ID Date Data Source [id number] 04/29/2020 10:04:00 AM EST [facility] Name Value Range Interpretation Code Description Data Mireille rce(s) Supporting Document(s) SARS COVID ANTIGEN POSITIVE [facility] a [facility] reported by [facility]. ID Date Data Source [id number] COVID AG (Point of Care) 04/29/2020 12:00:00 AM EST eC W1 ([facility]) Name Value Range Interpretation Code Description Data Mireille rce(s) Supporting Document(s) POSITIVE NEGATIVE [place] COVID ANTIGEN eCW1 ([facility]) ID Date Data Source [id number] 04/12/2020 08:23:00 PM EST [facility] Name Value Range Interpretation Code Description Data Mireille rce(s) Supporting Document(s) SARS-CoV-2 (COVID 19) NEGATIVE - SARS-CoV-2 (COVID19) [facility] This lab was ordered by [facility] a nd reported by [facility]. ID Date Data Source [id number] 03/16/2020 05:11:00 AM EST [facility] Name Value Range Interpretation Code Description Data Mireille rce(s) Supporting Document(s) Hemoglobin A1C % Less than 5.7% Above high normal [facility] HBA1C: Normal: Less than 5.7% Prediabetes: 5.7% to 6.4% Diabetes: 6.5% or higher HA1C % vs Estimated Average Glucose (eAG) % eAG % eAG 6% 126 mg/dL 10% 240 mg/dL 7% 154 mg/dL 11% 269 mg/dL 8% 183 mg/dL 12% 298 mg/dL 9% 212 mg/dL Reference: [place] [employer], 2017 ID Date Data Source [id number] 02/28/2020 11:00:00 AM EST [facility] Name Value Range Interpretation Code Description Data [facility] rce(s) Supporting Document(s) SARS coronavirus 2 RNA [facility] This lab was ordered by [facility] and reported by [facility]. ID Date Data Source [id number] 01/28/2020 04:53:00 PM EDT [facility] ([facility] Name Value Range Interpretation Code Description Data [facility] rce(s) Supporting Document(s) Glucose [Mass/volume] in Capillary blood by Glucometer 154 mg/dL 80-115 Above high normal [facility] ([facility] ID Date Data Source [id number] 01/28/2020 04:09:00 PM EDT [facility] ([facility] Name Value Range Interpretation Code Description Data 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 Margin appears viable. 01/30/202009 CLINICAL DIAGNOSIS Right hallux gangrene 01/29/2020 - 1304 GROSS DIAGNOSIS Received in formalin labeled "right hallux" and consists of a fragment of hallux 2.5 x 1 x 1 cm. An area of gangrenous changes is noted. Carder Blankets sections are submitted in two after decalcification. -OA 01/29/2020 - 1304 Signed SALINA SAUNDERS MD 01/30/2020 0957 ID Date Data Source [id number] 01/28/2020 11:26:00 AM EDT [facility] ([facility] Name Value Range Interpretation Code Description Data Mireille rce(s) Supporting Document(s) Glucose [Mass/volume] in Capillary blood by Glucometer 91 mg/dL 80- 115 [facility] ([facility] Procedure Social History Code Duration Value Status Description Data Source(s ) Smoking 03/02/2021 12:00:00 AM EST Former Smoker completed Former Smoker eCW1 ([facility]) Smoking 03/02/2021 12:00:00 AM EST Former Smoker completed Former Smoker eCW1 ([facility]) Smoking 02/21/2021 12:00:00 AM EST Former Smoker completed Former Smoker eCW1 ([facility]) Smoking 02/21/2021 12:00:00 AM EST Former Smoker completed Former Smoker eCW1 ([facility]) Smoking 01/21/2021 12:00:00 AM EDT Former Smoker completed Former Smoker eCW1 ([facility]) Smoking 01/21/2021 12:00:00 AM EDT Former Smoker completed Former Smoker eCW1 ([facility]) Smoking 01/21/2021 12:00:00 AM EDT Former Smoker completed Former Smoker eCW1 ([facility]) Smoking 12/23/2020 12:00:00 AM EDT Former Smoker completed Former Smoker eCW1 ([facility]) Smoking 12/23/2020 12:00:00 AM EDT Former Smoker completed Former Smoker eCW1 ([facility]) Smoking 12/23/2020 12:00:00 AM EDT Former Smoker completed Former Smoker eCW1 ([facility]) Smoking 12/16/2020 12:00:00 AM EDT Former Smoker completed Former Smoker eCW1 ([facility]) Smoking 12/16/2020 12:00:00 AM EDT Former Smoker completed Former Smoker eCW1 ([facility]) Smoking 08/24/2020 12:00:00 AM EDT Former Smoker completed Former Smoker eCW1 ([facility]) Smoking 08/24/2020 12:00:00 AM EDT Former Smoker completed Former Smoker eCW1 ([facility]) Smoking 08/24/2020 12:00:00 AM EDT Former Smoker completed Former Smoker eCW1 ([facility]) Smoking 08/24/2020 12:00:00 AM EDT Former Smoker completed Former Smoker eCW1 ([facility]) Smoking 08/24/2020 12:00:00 AM EDT Former Smoker completed Former Smoker eCW1 ([facility]) Smoking 07/27/2020 12:00:00 AM EDT Former Smoker completed Former Smoker eCW1 ([facility]) Smoking 07/27/2020 12:00:00 AM EDT Former Smoker completed Former Smoker eCW1 ([facility]) Smoking 07/27/2020 12:00:00 AM EDT Former Smoker completed Former Smoker eCW1 ([facility]) Smoking 07/27/2020 12:00:00 AM EDT Former Smoker completed Former Smoker eCW1 ([facility]) Smoking 07/27/2020 12:00:00 AM EDT Former Smoker completed Former Smoker eCW1 ([facility]) Smoking 07/06/2020 12:00:00 AM EDT Former Smoker completed Former Smoker eCW1 ([facility]) Smoking 07/06/2020 12:00:00 AM EDT Former Smoker completed Former Smoker eCW1 ([facility]) Smoking 07/06/2020 12:00:00 AM EDT Former Smoker completed Former Smoker eCW1 ([facility]) Smoking 05/28/2020 12:00:00 AM EST Non Smoker completed Non Smoke r [facility] ([facility] ) Smoking 05/13/2020 12:00:00 AM EST Former Smoker completed Former Smoker eCW1 ([facility]) Smoking 05/13/2020 12:00:00 AM EST Former Smoker completed Former Smoker eCW1 ([facility]) Smoking 05/13/2020 12:00:00 AM EST Former Smoker completed Former Smoker eCW1 ([facility]) Smoking 05/13/2020 12:00:00 AM EST Former Smoker completed Former Smoker eCW1 ([facility]) Smoking 05/05/2020 12:00:00 AM EST Former Smoker completed Former Smoker eCW1 ([facility]) Smoking 05/05/2020 12:00:00 AM EST Former Smoker completed Former Smoker eCW1 ([facility]) Smoking 05/05/2020 12:00:00 AM EST Former Smoker completed Former Smoker eCW1 ([facility]) Smoking 05/05/2020 12:00:00 AM EST Former Smoker completed Former Smoker eCW1 ([facility]) Smoking 05/05/2020 12:00:00 AM EST Former Smoker completed Former Smoker eCW1 ([facility]) Smoking 05/05/2020 12:00:00 AM EST Former Smoker completed Former Smoker eCW1 ([facility]) Smoking 05/05/2020 12:00:00 AM EST Former Smoker completed Former Smoker eCW1 ([facility]) Smoking 04/29/2020 12:00:00 AM EST Former Smoker completed Former Smoker eCW1 ([facility]) Smoking 04/06/2020 12:00:00 AM EST Former Smoker completed Former Smoker eCW1 ([facility]) Smoking 04/06/2020 12:00:00 AM EST Former Smoker completed Former Smoker eCW1 ([facility]) Smoking 04/06/2020 12:00:00 AM EST Former Smoker completed Former Smoker eCW1 ([facility]) Smoking 04/06/2020 12:00:00 AM EST Former Smoker completed Former Smoker eCW1 ([facility]) Smoking 04/06/2020 12:00:00 AM EST Former Smoker completed Former Smoker eCW1 (Formerly [facility]) Smoking 04/06/2020 12:00:00 AM EST Former Smoker completed Former Smoker eCW1 (Formerly [facility]) Smoking 04/06/2020 12:00:00 AM EST Former Smoker completed Former Smoker eCW1 (Formerly [facility]) Smoking 02/25/2020 12:00:00 AM EST Former Smoker completed Former Smoker eCW1 (Formerly [facility]) Smoking 02/25/2020 12:00:00 AM EST Former Smoker completed Former Smoker eCW1 (Formerly [facility]) Smoking 02/25/2020 12:00:00 AM EST Former Smoker completed Former Smoker eCW1 (Formerly [facility]) Smoking 02/25/2020 12:00:00 AM EST Former Smoker completed Former Smoker eCW1 (Formerly [facility]) Smoking 02/25/2020 12:00:00 AM EST Former Smoker completed Former Smoker eCW1 (Formerly [facility]) Smoking 02/25/2020 12:00:00 AM EST Former Smoker completed Former Smoker eCW1 (Formerly [facility]) Smoking 02/25/2020 12:00:00 AM EST Former Smoker completed Former Smoker eCW1 (Formerly [facility]) Smoking 02/24/2020 12:00:00 AM EST Former Smoker completed Former Smoker eCW1 (Formerly [facility]) Smoking 02/19/2020 12:00:00 AM EST Former Smoker completed Former Smoker eCW1 (Formerly [facility]) Smoking 02/19/2020 12:00:00 AM EST Former Smoker completed Former Smoker eCW1 (Formerly [facility]) Smoking 02/19/2020 12:00:00 AM EST Former Smoker completed Former Smoker eCW1 (Formerly [facility]) Smoking 02/09/2020 12:00:00 AM EST Former Smoker completed Former Smoker eCW1 (Formerly [facility]) Smoking 02/09/2020 12:00:00 AM EST Former Smoker completed Former Smoker eCW1 (Formerly [facility]) Smoking 01/19/2020 12:00:00 AM EDT Former Smoker completed Former Smoker eCW1 (Formerly [facility]) Smoking 01/19/2020 12:00:00 AM EDT Former Smoker completed Former Smoker eCW1 (Formerly [facility]) Smoking 01/19/2020 12:00:00 AM EDT Former Smoker completed Former Smoker eCW1 (Formerly [facility]) Vital Signs ID Date Data Source UNK Name Value Range Interpretation Code Description Data Source(s) Body weight 157 [lb_av] 157 [lb_av] eCW1 ([facility] Body height 69 [in_i] 69 [in_i] eCW1 ([facility]) Body mass index (BMI) [Ratio] 23.18 kg/m2 23.18 kg/m2 eCW1 (Formerly [facility]) Heart rate 84 /min 84 /min eCW1 (Formerly [facility]) Respiratory rate 16 /min 16 /min eCW1 (Formerly [facility]) Body temperature 98.1 [degF] 98.1 [degF] eCW1 ( Formerly [facility]) Systolic blood pressure 101 mm[Hg] 101 mm[Hg] e CW1 (Formerly [facility]) Diastolic blood pressure 44 mm[Hg] 44 mm[Hg] eCW1 (Formerly [facility]) Body weight 159.2 [lb_av] 159.2 [lb_av] eCW1 ([facility]) Body weight 72.21 kg 72.21 kg eCW1 ([facility]) Body height 69 [in_i] 69 [in_i] eCW1 ([facility]) Body mass index (BMI) [Ratio] 23.51 kg/m2 23.51 kg/m2 W1 (Formerly [facility]) Heart rate 93 /min 93 /min eCW1 (Formerly [facility]) Respiratory rate 17 /min 17 /min eCW1 (Formerly [facility]) Body temperature 97.6 [degF] 97.6 [degF] eCW1 ( Formerly [facility]) Systolic blood pressure 110 mm[Hg] 110 mm[Hg] e CW1 (Formerly [facility]) Diastolic blood pressure 48 mm[Hg] 48 mm[Hg] eCW1 (Formerly [facility]) Systolic blood pressure 109 mm[Hg] 109 mm[Hg] M EDENT ([facility], ) Diastolic blood pressure 65 mm[Hg] 65 mm[Hg] MEDENT ([facility], ) Heart rate 82 /min 82 /min MEDENT ([facility]) Body temperature 98.8 [degF] 98.8 [degF] MEDENT ([facility]) Body height 69 [in_i] 69 [in_i] [facility] ([facility]) 5'9" Body weight 164.00 [lb_av] 164.00 [lb_av] MEDEN T ([facility]) Body mass index (BMI) [Ratio] 24.2 kg/m2 24.2 k g/m2 [facility] ([facility]) [place] body weight 160 [lb_av] 160 [lb_av] MEDEN T ([facility]) Body weight 74.390 kg 74.390 kg [facility] ([facility]) Body surface area Derived from formula 1.90 m2 1.90 m2 [facility] ([facility]) Body weight 154.4 [lb_av] 154.4 [lb_av] eCW1 ([facility]) Body height 69 [in_i] 69 [in_i] eCW1 ([facility]) Body mass index (BMI) [Ratio] 22.80 kg/m2 22.80 kg/m2 W1 (Formerly [facility]) Heart rate 78 /min 78 /min eCW1 (Formerly [facility]) Respiratory rate 18 /min 18 /min W1 (Formerly [facility]) Body temperature 97.6 [degF] 97.6 [degF] eCW1 ( Formerly [facility]) Systolic blood pressure 146 mm[Hg] 146 mm[Hg] e CW1 (Formerly [facility]) Diastolic blood pressure 66 mm[Hg] 66 mm[Hg] eCW1 (Formerly [facility]) Systolic blood pressure 138 mm[Hg] 138 mm[Hg] M EDENT ([facility]) Body weight 152.00 [lb_av] 152.00 [lb_av] MEDEN T ([facility]) Body mass index (BMI) [Ratio] 22.4 kg/m2 22.4 k g/m2 [facility] ([facility]) [place] body weight 160 [lb_av] 160 [lb_av] MEDEN T ([facility]) Body weight 68.947 kg 68.947 kg MEDENT ([facility]) Body surface area Derived from formula 1.84 m2 1.84 m2 [facility] ([facility]) Diastolic blood pressure 80 mm[Hg] 80 mm[Hg] MEDENT ([facility]) Body temperature 97.9 [degF] 97.9 [degF] MEDENT ([facility]) Body height 69 [in_i] 69 [in_i] MEDENT ([facility]) 5'9" Body weight 162.6 [lb_av] 162.6 [lb_av] eCW1 ([facility]) Body height 69 [in_i] 69 [in_i] eCW1 ([facility]) Body mass index (BMI) [Ratio] 24.01 kg/m2 24.01 kg/m2 eCW1 (Formerly [facility]) Heart rate 70 /min 70 /min eCW1 (Formerly [facility]) Respiratory rate 18 /min 18 /min eCW1 (Formerly [facility]) Body temperature 98.1 [degF] 98.1 [degF] eCW1 ( Formerly [facility]) Systolic blood pressure 112 mm[Hg] 112 mm[Hg] e CW1 (Formerly [facility]) Diastolic blood pressure 55 mm[Hg] 55 mm[Hg] eCW1 (Formerly [facility]) Heart rate 65 /min 65 /min MEDENT ([facility]) Systolic blood pressure 116 mm[Hg] 116 mm[Hg] M EDENT ([facility]) Body mass index (BMI) [Ratio] 24.4 kg/m2 24.4 k g/m2 MEDENT ([facility]) Diastolic blood pressure 71 mm[Hg] 71 mm[Hg] MEDENT ([facility]) Body height 69 [in_i] 69 [in_i] MEDENT ([facility]) 5'9" Body weight 165.25 [lb_av] 165.25 [lb_av] MEDEN T ([facility]) [place] body weight 160 [lb_av] 160 [lb_av] MEDEN T ([facility]) Body weight 74.957 kg 74.957 kg MEDENT ([facility]) Body surface area Derived from formula 1.91 m2 1.91 m2 MEDENT ([facility]) Heart rate 73 /min 73 /min eCW1 (Formerly [facility]) Respiratory rate 18 /min 18 /min eCW1 (Formerly [facility]) Body temperature 97.4 [degF] 97.4 [degF] eCW1 ( Formerly [facility]) Systolic blood pressure 106 mm[Hg] 106 mm[Hg] e CW1 (Formerly [facility]) Diastolic blood pressure 49 mm[Hg] 49 mm[Hg] eCW1 (Formerly [facility]) Body weight 165.2 [lb_av] 165.2 [lb_av] eCW1 ([facility]) Body height 69 [in_i] 69 [in_i] eCW1 ([facility]) Body mass index (BMI) [Ratio] 24.39 kg/m2 24.39 kg/m2 W1 (Formerly [facility]) Body mass index (BMI) [Ratio] 24.2 kg/m2 24.2 k g/m2 MEDENT ([facility]) Body weight 164.00 [lb_av] 164.00 [lb_av] MEDEN T ([facility]) Systolic blood pressure 153 mm[Hg] 153 mm[Hg] M EDENT ([facility]) Diastolic blood pressure 76 mm[Hg] 76 mm[Hg] MEDENT ([facility]) Heart rate 67 /min 67 /min MEDENT ([facility]) Body height 69 [in_i] 69 [in_i] MEDENT ([facility]) 5'9" [place] body weight 160 [lb_av] 160 [lb_av] MEDEN T ([facility]) Body weight 74.390 kg 74.390 kg MEDENT ([facility]) Body surface area Derived from formula 1.90 m2 1.90 m2 [facility] ([facility]) Body weight 74.390 kg 74.390 kg [facility] ([facility]) Body height 69 [in_i] 69 [in_i] [facility] ([facility]) 5'9" Systolic blood pressure 130 mm[Hg] 130 mm[Hg] M EDENT ([facility]) Diastolic blood pressure 68 mm[Hg] 68 mm[Hg] [facility] ([facility]) Body weight 164.00 [lb_av] 164.00 [lb_av] MEDEN T ([facility]) stated Body mass index (BMI) [Ratio] 24.2 kg/m2 24.2 k g/m2 [facility] ([facility]) [place] body weight 160 [lb_av] 160 [lb_av] MEDEN T ([facility]) Body surface area Derived from formula 1.90 m2 1.90 m2 [facility] ([facility]) Body weight 158 [lb_av] 158 [lb_av] eCW1 ([facility]) Body height 69 [in_i] 69 [in_i] eCW1 ([facility]) Body mass index (BMI) [Ratio] 23.33 kg/m2 23.33 kg/m2 W1 (Formerly [facility]) Heart rate 60 /min 60 /min eCW1 (Formerly [facility]) Respiratory rate 18 /min 18 /min eCW1 (Formerly [facility]) Body temperature 97.9 [degF] 97.9 [degF] eCW1 ( [facility]ly [facility]) Systolic blood pressure 182 mm[Hg] 182 mm[Hg] e CW1 (Formerly [facility]) Diastolic blood pressure 73 mm[Hg] 73 mm[Hg] eCW1 (Formerly [facility]) Body height 69 [in_i] 69 [in_i] [facility] ([facility]) 5'9" Body weight 164.00 [lb_av] 164.00 [lb_av] MEDEN T ([facility]) Systolic blood pressure 159 mm[Hg] 159 mm[Hg] M EDENT ([facility]) Body surface area Derived from formula 1.90 m2 1.90 m2 [facility] ([facility]) Diastolic blood pressure 77 mm[Hg] 77 mm[Hg] [facility] ([facility]) Heart rate 66 /min 66 /min [facility] ([facility]) Body mass index (BMI) [Ratio] 24.2 kg/m2 24.2 k g/m2 [facility] ([facility]) [place] body weight 160 [lb_av] 160 [lb_av] MEDEN T ([facility]) Body weight 74.390 kg 74.390 kg [facility] ([facility]) Body weight 164.00 [lb_av] 164.00 [lb_av] MEDEN T ([facility]) Body mass index (BMI) [Ratio] 24.2 kg/m2 24.2 k g/m2 [facility] ([facility]) [place] body weight 160 [lb_av] 160 [lb_av] MEDEN T ([facility]) Body weight 74.390 kg 74.390 kg [facility] ([facility]) Body height 69 [in_i] 69 [in_i] [facility] ([facility]) 5'9" Body surface area Derived from formula 1.90 m2 1.90 m2 [facility] ([facility]) Body weight 158.8 [lb_av] 158.8 [lb_av] eCW1 ([facility]) Body height 69 [in_i] 69 [in_i] eCW1 ([facility]) Body mass index (BMI) [Ratio] 23.45 kg/m2 23.45 kg/m2 W1 (Formerly [facility]) Heart rate 71 /min 71 /min eCW1 (Formerly [facility]) Respiratory rate 18 /min 18 /min eCW1 (Formerly [facility]) Body temperature 98.0 [degF] 98.0 [degF] eCW1 ( [facility]ly [facility]) Systolic blood pressure 157 mm[Hg] 157 mm[Hg] e CW1 (Formerly [facility]) Diastolic blood pressure 72 mm[Hg] 72 mm[Hg] eCW1 ([facility]ly [facility]) Systolic blood pressure 115 mm[Hg] 115 mm[Hg] M [facility] ([facility]) Diastolic blood pressure 63 mm[Hg] 63 mm[Hg] [facility] ([facility]) Heart rate 78 /min 78 /min [facility] ([facility]) Body height 69 [in_i] 69 [in_i] [facility] ([facility]) 5'9" Body weight 151.00 [lb_av] 151.00 [lb_av] MEDEN T ([facility]) Body mass index (BMI) [Ratio] 22.3 kg/m2 22.3 k g/m2 [facility] ([facility]) [place] body weight 160 [[facility]] [facility] Body weight 68.494 kg 68.494 kg [facility] ([facility]) Body surface area Derived from formula 1.83 m2 1.83 m2 [facility] ([facility]) Body weight 151.2 [lb_av] 151.2 [lb_av] W1 ([facility]) Body height 69 [in_i] 69 [in_i] eCW1 ([facility]) Body mass index (BMI) [Ratio] 22.33 kg/m2 22.33 kg/m2 eCW1 (Formerly [facility]) Heart rate 81 /min 81 /min eCW1 (Formerly [facility]) Respiratory rate 17 /min 17 /min eCW1 (Formerly [facility]) Body temperature 98.1 [degF] 98.1 [degF] eCW1 ( [facility]ly [facility]) Systolic blood pressure 114 mm[Hg] 114 mm[Hg] e CW1 ([facility]ly [facility]) Diastolic blood pressure 55 mm[Hg] 55 mm[Hg] eCW1 ([facility]ly [facility]) Systolic blood pressure 136 mm[Hg] 136 mm[Hg] M EDENT ([facility]) Diastolic blood pressure 78 mm[Hg] 78 mm[Hg] MEDENT ([facility]) Heart rate 69 /min 69 /min [facility] ([facility]) Body height 69 [in_i] 69 [in_i] MEDENT ([facility]) 5'9" Body weight 153.50 [lb_av] 153.50 [lb_av] MEDEN T ([facility]) Body mass index (BMI) [Ratio] 22.7 kg/m2 22.7 k g/m2 [facility] ([facility]) [place] body weight 160 [lb_av] 160 [lb_av] MEDEN T ([facility]) Body weight 69.628 kg 69.628 kg [facility] ([facility]) Body surface area Derived from formula 1.85 m2 1.85 m2 [facility] ([facility]) Diastolic blood pressure 70 mm[Hg] 70 mm[Hg] MEDENT ([facility]) Body weight 155.00 [lb_av] 155.00 [lb_av] MEDEN T ([facility]) Stated Body mass index (BMI) [Ratio] 22.9 kg/m2 22.9 k g/m2 [facility] ([facility]) [place] body weight 160 [lb_av] 160 [lb_av] MEDEN T ([facility]) Body weight 70.308 kg 70.308 kg [facility] ([facility]) Body surface area Derived from formula 1.85 m2 1.85 m2 [facility] ([facility]) Body height 69 [in_i] 69 [in_i] MEDENT ([facility]) 5'9" Systolic blood pressure 150 mm[Hg] 150 mm[Hg] M EDENT ([facility]) Body weight 155 [lb_av] 155 [lb_av] eCW1 ([facility]) Body height 69 [in_i] 69 [in_i] eCW1 ([facility]) Body mass index (BMI) [Ratio] 22.89 kg/m2 22.89 kg/m2 eCW1 (Formerly [facility]) Heart rate 78 /min 78 /min eCW1 ([facility]ly [facility]) Respiratory rate 18 /min 18 /min eCW1 (Formerly [facility]) Body temperature 98.4 [degF] 98.4 [degF] eCW1 ( [facility]) Systolic blood pressure 109 mm[Hg] 109 mm[Hg] e CW1 ([facility]ly [facility]) Diastolic blood pressure 53 mm[Hg] 53 mm[Hg] eCW1 ([facility]ly [facility]) Systolic blood pressure 124 mm[Hg] 124 mm[Hg] M EDENT ([facility], ) Diastolic blood pressure 72 mm[Hg] 72 mm[Hg] MEDENT ([facility]) Body height 69 [in_i] 69 [in_i] [facility] ([facility]) 5'9" Body weight 145.00 [lb_av] 145.00 [lb_av] MEDEN T ([facility]) Body mass index (BMI) [Ratio] 21.4 kg/m2 21.4 k g/m2 [facility] ([facility]) [place] body weight 160 [lb_av] 160 [lb_av] MEDEN T ([facility]) Body weight 65.772 kg 65.772 kg [facility] ([facility]) Body surface area Derived from formula 1.80 m2 1.80 m2 [facility] ([facility]) Heart rate 89 /min 89 /min eCW1 (Formerly [facility]) Respiratory rate 20 /min 20 /min eCW1 (Formerly [facility]) Body weight 155 [lb_av] 155 [lb_av] eCW1 ([facility]) Body mass index (BMI) [Ratio] 22.89 kg/m2 22.89 kg/m2 W1 ([facility]ly [facility]) Body temperature 98.7 [degF] 98.7 [degF] eCW1 ( [facility]) Diastolic blood pressure 42 mm[Hg] 42 mm[Hg] eCW1 ([facility]ly [facility]) Body height 69 [in_i] 69 [in_i] eCW1 ([facility]) Systolic blood pressure 91 mm[Hg] 91 mm[Hg] e CW1 ([facility]ly [facility]) Systolic blood pressure 123 mm[Hg] 123 mm[Hg] M [facility] ([facility], ) Body height 69 [in_i] 69 [in_i] [facility] ([facility]) 5'9" Body weight 143.00 [lb_av] 143.00 [facility]_av] [facility] stated Diastolic blood pressure 73 mm[Hg] 73 mm[Hg] [facility] ([facility]) Body mass index (BMI) [Ratio] 21.1 kg/m2 21.1 k g/m2 [facility] ([facility]) [place] body weight 160 [lb_av] 160 [lb_av] [facility] Body weight 64.865 kg 64.865 kg [facility] ([facility]) Body surface area Derived from formula 1.79 m2 1.79 m2 [facility] ([facility]) Body weight 155 [lb_av] 155 [lb_av] W1 ([facility]) Body temperature 98.3 [degF] 98.3 [degF] eCW1 ( [facility]) Systolic blood pressure 136 mm[Hg] 136 mm[Hg] e CW1 ([facility]ly [facility]) Diastolic blood pressure 65 mm[Hg] 65 mm[Hg] eCW1 ([facility]ly [facility]) Body height 69 [in_i] 69 [in_i] eCW1 ([facility]) Body mass index (BMI) [Ratio] 22.89 kg/m2 22.89 kg/m2 W1 ([facility]ly [facility]) Heart rate 74 /min 74 /min eCW1 ([facility]) Respiratory rate 18 /min 18 /min eCW1 (Formerly [facility]) Systolic blood pressure 110 mm[Hg] 110 mm[Hg] M [facility] ([facility], ) Diastolic blood pressure 63 mm[Hg] 63 mm[Hg] MEDENT ([facility]) Body height 69 [in_i] 69 [in_i] MEDENT ([facility]) 5'9" Body weight 143.00 [lb_av] 143.00 [lb_av] MEDEN T ([facility]) Body mass index (BMI) [Ratio] 21.1 kg/m2 21.1 k g/m2 MEDENT ([facility]) [place] body weight 160 [lb_av] 160 [lb_av] MEDEN T ([facility]) Body weight 64.865 kg 64.865 kg [facility] ([facility]) Body surface area Derived from formula 1.79 m2 1.79 m2 [facility] ([facility]) [facility] 85 /min 85 /[facility] Body height 69 [in_i] 69 [in_i] MEDENT ([facility]) 5'9" [place] body weight 160 [lb_av] 160 [lb_av] MEDEN T ([facility]) Systolic blood pressure 126 mm[Hg] 126 mm[Hg] M EDENT ([facility]) Diastolic blood pressure 61 mm[Hg] 61 mm[Hg] MEDENT ([facility]) Body height 69 [in_i] 69 [in_i] eCW1 ([facility]) Body mass index (BMI) [Ratio] 24.22 kg/m2 24.22 kg/m2 eCW1 ([facility]ly [facility]) Heart rate 90 /min 90 /min eCW1 ([facility]) Body temperature 97.7 [degF] 97.7 [degF] eCW1 ( [facility]) Systolic blood pressure 188 mm[Hg] 188 mm[Hg] e CW1 ([facility]) Body weight 164 [lb_av] 164 [lb_av] eCW1 ([facility]) Respiratory rate 20 /min 20 /min eCW1 (Formerly [facility]) Diastolic blood pressure 78 mm[Hg] 78 mm[Hg] eCW1 ([facility]ly [facility]) Body weight 164 [lb_av] 164 [lb_av] eCW1 ([facility]) Body height 69 [in_i] 69 [in_i] eCW1 ([facility]) Body mass index (BMI) [Ratio] 24.22 kg/m2 24.22 kg/m2 eCW1 ([facility]) Heart rate 82 /min 82 /min eCW1 ([facility]) Respiratory rate 20 /min 20 /min eCW1 (Formerly [facility]) Body temperature 98.5 [degF] 98.5 [degF] eCW1 ( [facility]) Systolic blood pressure 107 mm[Hg] 107 mm[Hg] e CW1 ([facility]) Diastolic blood pressure 58 mm[Hg] 58 mm[Hg] eCW1 ([facility]) Respiratory rate 22 /min 22 /min eCW1 ([facility]ly [facility]) Body temperature 98.2 [degF] 98.2 [degF] eCW1 ( [facility]) Systolic blood pressure 188 mm[Hg] 188 mm[Hg] e CW1 ([facility]) Diastolic blood pressure mm[Hg] eCW1 ([facility]) Body weight 168 [lb_av] 168 [lb_av] eCW1 ([facility]) Body weight kg eCW1 ([facility]) Body height 69 [in_i] 69 [in_i] eCW1 ([facility]) Body mass index (BMI) [Ratio] 24.81 kg/m2 24.81 kg/m2 eCW1 ([facility]ly [facility]) Heart rate 88 /min 88 /min eCW1 ([facility]) Body height 69 [in_i] 69 [in_i] MEDENT ([facility] 5'9" Body weight 168.00 [lb_av] 168.00 [lb_av] MEDEN T ([facility] Systolic blood pressure 107 mm[Hg] 107 mm[Hg] M EDENT ([facility] Diastolic blood pressure 69 mm[Hg] 69 mm[Hg] MEDENT ([facility] Heart rate 77 /min 77 /[facility] Body mass index (BMI) [Ratio] 24.8 kg/m2 24.8 k g/m2 MEDENT ([facility] Systolic blood pressure 128 mm[Hg] 128 mm[facility]] [facility] Diastolic blood pressure 70 mm[Hg] 70 mm[Hg] [facility] ([facility]) Body weight 76.318 kg 76.318 kg [facility] ([facility]) [place] body weight 160 [lb_av] 160 [lb_av] MEDEN T ([facility]) Body height 69 [in_i] 69 [in_i] [facility] ([facility]) 5'9" Body weight 168.25 [lb_av] 168.25 [[facility]_av] [facility] Body surface area Derived from formula 1.92 m2 1.92 m2 [facility] ([facility]) Body mass index (BMI) [Ratio] 24.8 kg/m2 24.8 k g/m2 [facility] ([facility]) Body weight kg eCW1 ([facility]) Body height 69 [in_i] 69 [in_i] eCW1 ([facility]) Body mass index (BMI) [Ratio] 24.81 kg/m2 24.81 kg/m2 eCW1 ([facility]) Heart rate 77 /min 77 /min eCW1 ([facility]) Body weight 168 [lb_av] 168 [lb_av] eCW1 ([facility]) Respiratory rate 18 /min 18 /min eCW1 (Formerly [facility]) Body temperature 94.6 [degF] 94.6 [degF] eCW1 ( [facility]) Systolic blood pressure 107 mm[Hg] 107 mm[Hg] e CW1 ([facility]) Diastolic blood pressure 69 mm[Hg] 69 mm[Hg] eCW1 (Formerly [facility]) Body weight 168 [lb_av] 168 [lb_av] eCW1 ([facility]) Body weight kg eCW1 ([facility]) Body height 69 [in_i] 69 [in_i] eCW1 ([facility]) Body mass index (BMI) [Ratio] 24.81 kg/m2 24.81 kg/m2 eCW1 (Formerly [facility]) Patient Treatment Plan of Care Planned Activity Planned Date Details Description Data Source (s) Amlodipine 5 MG Oral Tablet 02/08/2021 12:00:00 AM EST eCW1 (Formerly [facility]) Bisacodyl 10 MG Rectal Suppository 12/14/2020 12:00:00 AM EDT eCW1 (Formerly [facility]) Docusate Sodium 100 MG Oral Capsule [Colace] 12/14/2020 12:00:00 AM EDT eCW1 (Formerly [facility]) Ketoconazole 20 MG/ML Topical Cream 09/16/2020 12:00:00 AM EDT eCW1 (Formerly [facility]) Ketoconazole 20 MG/ML Topical Cream 09/16/2020 12:00:00 AM EDT eCW1 (Formerly [facility]) Ketoconazole 20 MG/ML Topical Cream 09/16/2020 12:00:00 AM EDT eCW1 (Formerly [facility]) Ketoconazole 20 MG/ML Topical Cream 09/16/2020 12:00:00 AM EDT eCW1 (Formerly [facility]) Prednisone 1 MG Oral Tablet 07/27/2020 12:00:00 AM EDT eCW1 (Formerly [facility]) Prednisone 1 MG Oral Tablet 07/27/2020 12:00:00 AM EDT eCW1 (Formerly [facility]) Prednisone 1 MG Oral Tablet 07/27/2020 12:00:00 AM EDT eCW1 (Formerly [facility]) Prednisone 1 MG Oral Tablet 07/27/2020 12:00:00 AM EDT eCW1 (Formerly [facility]) Prednisone 1 MG Oral Tablet 07/27/2020 12:00:00 AM EDT eCW1 (Formerly [facility]) aripiprazole 5 MG Oral Tablet 07/06/2020 12:00:00 AM EDT eCW1 (Formerly [facility]) aripiprazole 5 MG Oral Tablet 07/06/2020 12:00:00 AM EDT eCW1 (Formerly [facility]) aripiprazole 5 MG Oral Tablet 07/06/2020 12:00:00 AM EDT eCW1 (Formerly [facility]) aripiprazole 5 MG Oral Tablet 07/06/2020 12:00:00 AM EDT eCW1 (Formerly [facility]) aripiprazole 5 MG Oral Tablet 07/06/2020 12:00:00 AM EDT eCW1 (Formerly [facility]) aripiprazole 5 MG Oral Tablet 07/06/2020 12:00:00 AM EDT eCW1 (Formerly [facility]) aripiprazole 5 MG Oral Tablet 07/06/2020 12:00:00 AM EDT eCW1 (Formerly [facility]) aripiprazole 5 MG Oral Tablet 07/06/2020 12:00:00 AM EDT eCW1 (Formerly [facility]) aripiprazole 5 MG Oral Tablet 07/06/2020 12:00:00 AM EDT eCW1 (Formerly [facility]) aripiprazole 5 MG Oral Tablet 07/06/2020 12:00:00 AM EDT eCW1 (Formerly [facility]) aripiprazole 5 MG Oral Tablet 07/06/2020 12:00:00 AM EDT eCW1 (Formerly [facility]) aripiprazole 5 MG Oral Tablet 07/06/2020 12:00:00 AM EDT eCW1 (Formerly [facility]) aripiprazole 5 MG Oral Tablet 07/06/2020 12:00:00 AM EDT eCW1 (Formerly [facility]) [facility] - 03/11/2020 12:00:00 AM EST eCW1 (Formerly [facility]) Misc. Devices - 03/11/2020 12:00:00 AM EST eCW1 (Formerly [facility]) Misc. Devices - 03/11/2020 12:00:00 AM EST eCW1 (Formerly [facility]) Misc. Devices - 03/11/2020 12:00:00 AM EST eCW1 (Formerly [facility]) Misc. Devices - 03/11/2020 12:00:00 AM EST eCW1 (Formerly [facility]) Wheelchair - 02/24/2020 12:00:00 AM EST e CW1 (Formerly [facility]) Wheelchair - 02/24/2020 12:00:00 AM EST e CW1 (Formerly [facility]) Wheelchair - 02/24/2020 12:00:00 AM EST e CW1 (Formerly [facility]) Wheelchair - 02/24/2020 12:00:00 AM EST e CW1 (Formerly [facility]) Wheelchair - 02/24/2020 12:00:00 AM EST e CW1 (Formerly [facility]) Wheelchair - 02/24/2020 12:00:00 AM EST e CW1 (Formerly [facility]) Wheelchair - 02/24/2020 12:00:00 AM EST e CW1 (Formerly [facility]) Wheelchair - 02/24/2020 12:00:00 AM EST e CW1 (Formerly [facility])
--- NOTE | 2021-03-06 17:28 | ECGEPIP ---
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
[2021-03-06] MEDS ORDERED: GLUCOSE 4GM CHEW TABLET PO PRN (17:30)
[2021-03-06] MEDS: SUCRALFATE SUSP 1GM/10ML UD PO SCH ×2 (17:30→21:39)
[2021-03-06] MEDS ORDERED: GLUCAGON INJ 1MG VIAL SC PRN (17:30)
[2021-03-06] MEDS ORDERED: DEXTROSE 50% 50 ML SYRINGE IV PRN (17:30)
--- NOTE | 2021-03-06 17:32 | HPEPDOC ---
General Date of Admission March 06, 2021 Date of Service: Mar 06, 2021 Chief Complaint The patient is a 60-year-old male admitted with a reason for visit of High Blood Sugar. Source: Patient, Family, RN/MD History of Present Illness Mr. Girard is a 60-year-old male with type 1 diabetes and bilateral BKA's who presents with hyperglycemia. Patient is ANO x3, but he changes his story. He tells me that he came in for hypoglycemia when he is here with hyperglycemia. ED provider noticed his insulin pump was empty and it seemed like patient did not know how to change his insulin pump. When I spoke with the patient, he denied any problems. He was just thirsty. He tells me that he does not live alone and he knows how to use his insulin. He tells me he is not out of any of his medications. He tells me that he does not smoke weed or do any other drugs. When I called his mother, she tells me that he lives alone in his own apartment. Patient has missed medications and meals. Earlier this week, sister had found patient hypoglycemic and munoz. She had to give him a glucagon injection. They cannot keep caring for the patient. Also, the patient does smoke marijuana. While here, vital signs have been stable but patient has been mildly tachycardic. Improved with fluids. Otherwise he is not hypoxic. Labs demonstrated chronic anemia and a mild white blood count. Blood glucose was elevated at 375. Serum osmolality mildly elevated at 303. Chest x-ray is is not suggestive of pneumonia. UA is negative for UTI. Patient has bilateral BKA. Right stump has a wick and does not look infected. Left stump looks fine. Patient will be admitted for hyperglycemia and possible placement. Home Medications Scheduled Amlodipine Besylate (Norvasc) 5 Mg Tablet, 5 MG PO DAILY, (Reported) Aripiprazole (Abilify) 5 Mg Tablet, 5 MG PO DAILY, (Reported) Aspirin (Aspirin EC) 81 Mg Tablet.dr, 81 MG PO DAILY, (Reported) Atorvastatin Calcium (Atorvastatin Calcium) 40 Mg Tablet, 40 MG PO DAILY, (Reported) Citalopram Hydrobromide (Citalopram HBr) 40 Mg Tablet, 40 MG PO DAILY, (Report ed) Clopidogrel Bisulfate (Plavix) 75 Mg Tablet, 75 MG PO DAILY, (Reported) Ferrous Sulfate (Ferrous Sulfate) 325 Mg Tab, 325 MG PO QWEEK, (Reported) SUNDAY Finasteride (Finasteride) 5 Mg Tablet, 5 MG PO DAILY, (Reported) Gabapentin (Gabapentin) 300 Mg Capsule, 300 MG PO BID, (Reported) Insulin Human Lispro (Novolog) 100 Unit/1 Ml Vial, 1 DOSE SC ASDIRECTED, (Reported) SLIDING SCALE. UP TO 100 UNITS DAILY CONTINUOUS THROUGH INSULIN PUMP Lisinopril (Lisinopril) 5 Mg Tablet, 5 MG PO DAILY, (Reported) Multivitamins (Thera M Plus Tablet) 1 Each Tablet, 1 TAB PO DAILY, (Reported) Pantoprazole Sodium (Pantoprazole Sodium) 40 Mg Tablet.dr, 40 MG PO DAILY, (Reported) Prednisone (Prednisone) 1 Mg Tablet, 4 MG PO DAILY, (Reported) TAKES WITH 5MG FOR 9MG TOTAL Prednisone (Prednisone) 5 Mg Tablet, 5 MG PO DAILY, (Reported) TAKE WITH 4MG FOR 9MG TOTAL Sucralfate (Sucralfate) 1 Gm/10 Ml Oral.susp, 1 GM PO ACHS, (Reported) Scheduled PRN Acetaminophen (Acetaminophen) 325 Mg Tablet, 650 MG PO Q4H PRN for PAIN LEVEL 1- 4, (Reported) Docusate Sodium (Stool Softener) 100 Mg Capsule, 100 MG PO DAILY PRN for CONSTIPATION, (Reported) Glucagon,Human Recombinant (Glucagon Emergency Kit) 1 Mg Vial, 1 MG IM ASDIRECTED PRN for LOW BLOOD SUGAR, (Reported) Allergies Coded Allergies: No Known Allergies (Unverified , 02/11/21) Past Medical History Medical History 1. Brittle diabetes mellitus type 1 on insulin pump 2. Diabetic neuropathy 3. Diabetic retinopathy 4. Diabetic nephropathy 5. Autonomic dysfunction secondary to longstanding diabetes 6. Adrenal insufficiency chronically on steroids 7. Peripheral arterial disease 8. History of temporal arteritis 9. Depression/bipolar 10. BPH with LUTS 11. Dyslipidemia 12. Migraines Surgical History 1. Resection of lipoma 2. Bilateral BKA's 3. Cataract surgery Family History Family history includes diabetes mellitus and leukemia Social History * Smoker: former Smoker Alcohol: sober Drugs: marijuana A-FIB/CHADSVASC A-FIB History Current/History of A-Fib/PAF?: No Review of Systems Constitutional: Denies: Chills, Fever Eyes: Denies: Vision change ENT: Denies: Sore Throat Skin: Denies: Rash Pulmonary: Denies: Dyspnea Cardiovascular: Denies: Chest Pain Gastrointestinal: Denies: Nausea, Abdominal Pain, Diarrhea Genitourinary: Denies: Dysuria Hematologic: Denies: Bruising Neurological: Denies: Numbness Psych: Denies: Anxiety, Depression Physical Examination General Exam: Positive: Alert, Cooperative Eye Exam: Positive: EOMI; Negative: Sclera icteric ENT Exam: Positive: Atraumatic Neck Exam: Positive: Supple Chest Exam: Positive: Clear to auscultation; Negative: Rales, Rhonchi, Wheezing Heart Exam: Positive: Rate Normal, Regular Rhythm Abdomen Exam: Positive: Normal bowel sounds, Soft; Negative: Tenderness Extremity Exam: Positive: Other (Bilateral BKA) Neuro Exam: Positive: Normal Speech, Cranial Nerves 3-12 NL Psych Exam: Positive: Mood NL, Oriented x 3 Vital Signs Vital Signs Date Time Temp Pulse Resp B/P (MAP) Pulse Ox O2 Delivery O2 Flow Rate FiO2 03/06/21 13:15 16 165/65 (98) 03/06/21 13:03 91 98 03/06/21 07:57 99.7 Room Air Laboratory Data Labs 24H Laboratory Tests 2 03/06/21 08:01: Bedside Glucose (Misc Panel) 353H 03/06/21 08:10: Immature Granulocyte % (Auto) 0.5, Neutrophils (%) (Auto) 83.6H, Lymphocytes (%) (Auto) 5.4L, Monocytes (%) (Auto) 10.3H, Eosinophils (%) (Auto) 0.0, Basophils (%) (Auto) 0.2, Neutrophils # (Auto) 10.7H, Lymphocytes # (Auto) 0.7L, Monocytes # (Auto) 1.3H, Eosinophils # (Auto) 0.0, Basophils # (Auto) 0.0, Nucleated Red Blood Cells % (auto) 0.0, Blood Gas Bicarbonate Standard 25.0, Venous Blood pH 7.410, Venous Blood Partial Pressure CO2 41.9, Venous Blood Partial Pressure O2 34.3, Venous Blood Total Carbon Dioxide 27.2, Venous Blood HCO3 26.0, Venous Blood Oxygen Saturation 64.9, Venous Blood Base Excess 1.2, Estimated Mean Plasma Glucose 160H, Hemoglobin A1c 7.2, Osmolality 303H, Total Bilirubin 0.7, Direct Bilirubin 0.2, Aspartate Amino Transf (AST/SGOT) 49H, Alanine Aminotransferase (ALT/SGPT) 41, Alkaline Phosphatase 114, Total Protein 6.5, Albumin 3.6, Albumin/Globulin Ratio 1.2, Lipase 26L, B-Hydroxybutyrate 17.93H 03/06/21 08:12: POC Glucose (Misc Panel) 375H, POC Sodium (Misc Panel) 138, POC Potassium (Misc Panel) 4.5, POC Chloride (Misc Panel) 99, POC Total CO2 (Misc Panel) 27.0, POC Blood Urea Nitrogen (Misc Panel 17, POC Ionized Calcium (Misc Panel) 4.6, POC Creatinine (Misc Panel) 1.2, POC Hematocrit (Misc Panel) 26.0L 03/06/21 08:53: Bedside Glucose (Misc Panel) 341H 03/06/21 10:05: Bedside Glucose (Misc Panel) 234H 03/06/21 12:01: Bedside Glucose (Misc Panel) 230H 03/06/21 14:22: Bedside Glucose (Misc Panel) 276H 03/06/21 15:12: Urine Color STRAW, Urine Appearance CLEAR, Urine pH 7.0, Urine Specific [place] 1.007, Urine Protein NEGATIVE, Urine Glucose (UA) 3+H, Urine Ketones 1+H, Urine Blood NEGATIVE, Urine Nitrite NEGATIVE, Urine Bilirubin NEGATIVE, Urine Urobilin ogen 0.2, Urine Leukocyte Esterase NEGATIVE, Urine WBC (Auto) 0, Urine RBC (Auto) 0, Urine Hyaline Casts (Auto) 0, Urine Bacteria (Auto) NEGATIVE, Urine Squamous Epithelial Cells 0, Urine Sperm (Auto) 03/06/21 15:54: 03/06/21 16:12: 03/06/21 16:24: Bedside Glucose (Misc Panel) 313H CBC/BMP Laboratory Tests 03/06/21 08:10 Assessment/Plan Mr. Girard is a 60-year-old male with type 1 diabetes and bilateral BKA's who presents with hyperglycemia. Patient is an unreliable historian. Although he is A&O x3, he changes his story and his story is inconsistent. Family says that he is unable to care for himself at home. He misses meals which is dangerous for a type I diabetic. That most likely resulted in his munoz and ashen state when his sister saw him and had to give him a dose of glucagon. Patient may have from hypoglycemia at that point the sister did not find him. Family also says that he misses his medications occasionally. We will touch her to PFS. Otherwise he does appear dehydrated. We will give him fluids and control his sugar. Plan / VTE VTE Prophylaxis Ordered?: Yes Plan Plan 1. Hyperglycemia type I diabetic Patient's insulin pump is out of insulin Unsure patient knows how to change or use his insulin pump Sister reported patient was found near and had to be given glucagon. It is very dangerous for type I diabetics to miss meals as they can become hypoglycemic from the insulin pump. While here, carbohydrate consistent diet Sign scale insulin 2. Dehydration Oral mucosa appears dry and patient is thirsty Most likely from hyperglycemia Gentle IV fluids 3. Hypertension Continue amlodipine and lisinopril 4. Peripheral vascular disease status post bilateral amputation Continue aspirin, Plavix, and atorvastatin 5. Diabetic neuropathy Continue gabapentin 6. BPH Continue finasteride 7. Anemia Continue iron 8. GERD Continue pantoprazole and Carafate 9. Adrenal insufficiency Continue prednisone 10. DVT prophylaxis Subcu heparin Disposition: Pending clinical improvement. Patient may need to be placed. PT and OT ordered SHARIR PANDEY DO Mar 06, 2021 17:32
[2021-03-06 17:57] LABS: INR 1.52; PROTHROMBIN TIME 18.7 SECONDS (12.7-14.5)
[2021-03-06 17:58] LABS: PARTIAL THROMBOPLASTIN TIME 32.8 SECONDS (25.9-37.0)
[2021-03-06] MEDS: LR 1,000 ML IV SCH (18:11)
[2021-03-06] MEDS: HumaLOG INSULIN (NovoLOG) PER UNIT SC SCH ×2 (18:12→21:40)
[2021-03-06 20:23] VITALS: BP 123/48
[2021-03-06] MEDS: CitaloPRAM (CeleXA) 20 MG TAB PO SCH (21:33)
[2021-03-06] MEDS: predniSONE 5 MG TAB PO SCH (21:33)
[2021-03-06] MEDS: ASPIRIN 81MG ENTERIC TABLET PO SCH (21:33)
[2021-03-06] MEDS: predniSONE 1 MG TAB PO SCH (21:33)
[2021-03-06] MEDS: FINASTERIDE 5 MG TAB PO SCH (21:34)
[2021-03-06] MEDS: CLOPIDOGREL 75 MG TAB PO SCH (21:34)
[2021-03-06] MEDS: ATORVASTATIN 20 MG TAB PO SCH (21:34)
[2021-03-06] MEDS: PANTOPRAZOLE 40MG TAB (PROTONIX) PO SCH (21:35)
[2021-03-06] MEDS: GABAPENTIN 300 MG CAP PO SCH (21:39)
[2021-03-06] MEDS: HEPARIN SOD (PORCINE) 5000UNITS/ML 1ML VIAL/SYRINGE SC SCH (21:39)
[2021-03-07] VITALS (10 sets, daily range): BP systolic 117–151; BP diastolic 47–68
[2021-03-07] MEDS: LR 1,000 ML IV SCH ×2 (05:10→17:39)
[2021-03-07] MEDS: SUCRALFATE SUSP 1GM/10ML UD PO SCH ×4 (07:30→20:40)
[2021-03-07] MEDS ORDERED: FERROUS SULFATE 325MG TAB PO SCH (09:00)
[2021-03-07 09:38] LABS: HEMATOCRIT 22.5 % (42.0-52.0); HEMOGLOBIN 7.6 g/dl (13.5-17.5); MEAN CORPUSCULAR HEMOGLOBIN 30.6 pg (27.0-33.0); MEAN CORPUSCULAR HGB CONC 33.8 g/dl (32.0-36.5); MEAN CORPUSCULAR VOLUME 90.7 fl (80.0-96.0); PLATELET COUNT, AUTOMATED 247 10^3/uL (150-450); RED BLOOD COUNT 2.48 10^6/uL (4.30-6.10); WHITE BLOOD COUNT 8.7 10^3/uL (4.0-10.0)
[2021-03-07 09:50] LABS: BLOOD UREA NITROGEN 12 MG/DL (7-18); CALCIUM LEVEL 8.8 MG/DL (8.8-10.2); CARBON DIOXIDE LEVEL 26 MEQ/L (21-32); CHLORIDE LEVEL 103 MEQ/L (98-107); CREATININE FOR GFR 0.98 MG/DL (0.70-1.30); GLOMERULAR FILTRATION RATE > 60.0 (>49); GLUCOSE, FASTING 172 MG/DL (70-100); POTASSIUM SERUM 4.6 MEQ/L (3.5-5.1); SODIUM LEVEL 138 MEQ/L (136-145)
[2021-03-07] MEDS: predniSONE 1 MG TAB PO SCH (09:52)
[2021-03-07] MEDS: GABAPENTIN 300 MG CAP PO SCH ×2 (09:52→20:40)
[2021-03-07] MEDS: FINASTERIDE 5 MG TAB PO SCH (09:52)
[2021-03-07] MEDS: MULTIVITAMINS/MINERALS THERAP 1 TAB PO SCH (09:52)
[2021-03-07] MEDS: ATORVASTATIN 20 MG TAB PO SCH (09:53)
[2021-03-07] MEDS: PANTOPRAZOLE 40MG TAB (PROTONIX) PO SCH (09:53)
[2021-03-07] MEDS: lisinopriL 5 MG TAB PO SCH (09:53)
[2021-03-07] MEDS: amLODIPine 5 MG TAB PO SCH (09:53)
[2021-03-07] MEDS: ASPIRIN 81MG ENTERIC TABLET PO SCH (09:53)
[2021-03-07] MEDS: CitaloPRAM (CeleXA) 20 MG TAB PO SCH (09:53)
[2021-03-07] MEDS: CLOPIDOGREL 75 MG TAB PO SCH (09:53)
[2021-03-07] MEDS: predniSONE 5 MG TAB PO SCH (09:53)
[2021-03-07] MEDS: LEVEMIR (INSULIN DETEMIR) 1 UNITS/0.01ML SC SCH (09:54)
[2021-03-07] MEDS: HumaLOG INSULIN (NovoLOG) PER UNIT SC SCH ×4 (09:54→20:40)
[2021-03-07] MEDS: HEPARIN SOD (PORCINE) 5000UNITS/ML 1ML VIAL/SYRINGE SC SCH (09:55)
[2021-03-07 13:07] LABS: HEMATOCRIT 21.8 % (42.0-52.0); HEMOGLOBIN 7.1 g/dl (13.5-17.5); MEAN CORPUSCULAR HEMOGLOBIN 30.5 pg (27.0-33.0); MEAN CORPUSCULAR HGB CONC 32.6 g/dl (32.0-36.5); MEAN CORPUSCULAR VOLUME 93.6 fl (80.0-96.0); PLATELET COUNT, AUTOMATED 232 10^3/uL (150-450); RED BLOOD COUNT 2.33 10^6/uL (4.30-6.10); WHITE BLOOD COUNT 10.4 10^3/uL (4.0-10.0)
[2021-03-07 13:33] LABS: PERCENT SATURATION 19.3 % (19.7-50.0)
--- NOTE | 2021-03-07 16:24 | IPNPDOC ---
Subjective Date Seen The patient was seen on 03/07/21. Subjective Chief Complaint/HPI Mr. Girard is a 60-year-old male with type 1 diabetes and bilateral BKA's who presents with hyperglycemia. This morning, he denies any chest pain or dyspnea. I spoke with him about the importance of eating as a diabetic and compliance with medication. It is difficult and I suggested placement because it is difficult at home by himself. He still does not want to go to halfway. PT/OT worked with patient, recommending a few more sessions. Otherwise, patient's hemoglobin returned low. Patient denies any lightheadedness/dizziness, chest pain, dyspnea, or abdominal pain. He is A&Ox3. We will transfuse 2u pRBCs. Patient had an EGD on 01/13/[address] Velazquez who recommended BID protonix and carafate. Patient had grade C reflux esopha gitis. Patient had a colonoscopy on 08/03/2017 which demonstrated melanosis. Patient would need repeat colonoscopy in 5 years from that date (in 2022) Objective Physical Examination General Exam: Positive: Alert, Cooperative Eye Exam: Positive: EOMI; Negative: Sclera icteric ENT Exam: Positive: Atraumatic Neck Exam: Positive: Supple Chest Exam: Positive: Clear to auscultation; Negative: Rales, Rhonchi, Wheezing Heart Exam: Positive: Rate Normal, Regular Rhythm Abdomen Exam: Positive: Normal bowel sounds, Soft; Negative: Tenderness Extremity Exam: Positive: Other (Bilateral BKA) Neuro Exam: Positive: Normal Speech, Cranial Nerves 3-12 NL Psych Exam: Positive: Mood NL, Oriented x 3 Assessment /Plan Assessment Mr. Girard is a 60-year-old male with type 1 diabetes and bilateral BKA's who presents with hyperglycemia. Patient is an unreliable historian. Although he is A&O x3, he changes his story and his story is inconsistent. Family says that he is unable to care for himself at home. He misses meals which is dangerous for a type I diabetic. That most likely resulted in his munoz and ashen state when his sister saw him and had to give him a dose of glucagon. Patient may have from hypoglycemia at that point the sister did not find him. Family also says that he misses his medications occasionally. We will touch her to PFS. Otherwise he does appear dehydrated. We will give him fluids and control his sugar. On 03/07/2021, patient found to have anemia. Patient recently had EGD on 01/13/21 which demonstrated reflux esophagitis. Patient had colonoscopy on 08/03/17 which demonstrated melanosis and recommended repeat colonoscopy in 5 years. Patient currently on sucralfate but he has been refusing doses. Will increase Protonix to IV BID from PO daily Plan/VTE VTE Prophylaxis Ordered?: Yes Plan 1. Hyperglycemia type I diabetic Patient's insulin pump is out of insulin Unsure patient knows how to change or use his insulin pump Sister reported patient was found near and had to be given glucagon. It is very dangerous for type I diabetics to miss meals as they can become hypoglycemic from the insulin pump. While here, carbohydrate consistent diet Sign scale insulin 2. Acute blood loss anemia 01/13/21, patient had EGD which demonstrated reflux esophagitis -08/03/17, patient had colonoscopy which demonstrated melanosis, recommending 5 year follow up -Patient's esophagitis may be causing his drop in hemoglobin. Continue liquid carafate (which he refused a few times). Increase Protonix from daily to IV BID -Transfuse 2u pRBC 3. Dehydration Oral mucosa appears dry and patient is thirsty Most likely from hyperglycemia Gentle IV fluids 4. Peripheral vascular disease status post bilateral amputation Continue aspirin, Plavix, and atorvastatin 5. Diabetic neuropathy Continue gabapentin 6. BPH Continue finasteride 7. Hypertension Continue amlodipine and lisinopril 8. GERD Continue pantoprazole and Carafate 9. Adrenal insufficiency Continue prednisone 10. DVT prophylaxis Subcu heparin Disposition: Pending clinical improvement and stability of H&H. Patient may need to be placed. PT and OT ordered which recommended a few more sessions VS, I&O, 24H, Fishbone Vital Signs/I&O Vital Signs Date Time Temp Pulse Resp B/P (MAP) Pulse Ox O2 Delivery O2 Flow Rate FiO2 03/07/21 14:00 98.9 72 18 135/65 (88) 96 Room Air I&O- Last 24 Hours up to 6 AM 03/07/21 06:00 Intake Total 1950 ml Output Total 500 ml Balance 1450 ml Laboratory Data 24H LABS Laboratory Tests 2 03/06/21 16:12: Coronavirus (COVID-19)(PCR) NEGATIVE, Influenza Type A (RT-PCR) NEGATIVE, Influenza Type B (RT-PCR) NEGATIVE, Respiratory Syncytial Virus (PCR) NEGATIVE 03/06/21 16:24: Bedside Glucose (Misc Panel) 313H 03/06/21 17:24: Prothrombin Time 18.7H, Prothromb Time International Ratio 1.52, Activated Partial Thromboplast Time 32.8 03/06/21 20:40: Bedside Glucose (Misc Panel) 325H 03/07/21 08:42: Reticulocyte # (auto) 144.3H, Nucleated Red Blood Cells % (auto) 0.0, Percent Reticulocyte Count 5.8H, Reticulocyte Hemoglobin Equivalent 33.4, Anion Gap 9, Glomerular Filtration Rate > 60.0, Calcium Level 8.8 03/07/21 08:47: Bedside Glucose (Misc Panel) 174H 03/07/21 11:42: Bedside Glucose (Misc Panel) 261H 03/07/21 12:44: Nucleated Red Blood Cells % (auto) 0.0, Iron Level 34L, Total Iron Binding Capacity 176L, Transferrin % Saturation 19.3L, Ferritin 194, Lactate Dehydrogenase 178 CBC/BMP Laboratory Tests 03/07/21 08:42 03/07/21 12:44 SHARRI PANDEY DO Mar 07, 2021 16:24
[2021-03-07] MEDS: PANTOPRAZOLE 40MG VIAL (C9113 PER 1) IV SCH (20:40)
[2021-03-08 00:33] VITALS: BP 154/76
[2021-03-08 01:39] LABS: HEMATOCRIT 32.1 % (42.0-52.0); MEAN CORPUSCULAR HEMOGLOBIN 30.3 pg (27.0-33.0); MEAN CORPUSCULAR HGB CONC 32.7 g/dl (32.0-36.5); MEAN CORPUSCULAR VOLUME 92.5 fl (80.0-96.0); PLATELET COUNT, AUTOMATED 208 10^3/uL (150-450); RED BLOOD COUNT 3.47 10^6/uL (4.30-6.10); WHITE BLOOD COUNT 9.4 10^3/uL (4.0-10.0)
[2021-03-08 01:42] LABS: HEMOGLOBIN 10.5 g/dl (13.5-17.5)
[2021-03-08] MEDS: LR 1,000 ML IV SCH (05:29)
[2021-03-08 06:00] VITALS: BP 157/60
[2021-03-08 07:25] LABS: HEMATOCRIT 32.4 % (42.0-52.0); HEMOGLOBIN 10.7 g/dl (13.5-17.5); MEAN CORPUSCULAR HEMOGLOBIN 29.9 pg (27.0-33.0); MEAN CORPUSCULAR VOLUME 90.5 fl (80.0-96.0); PLATELET COUNT, AUTOMATED 240 10^3/uL (150-450); RED BLOOD COUNT 3.58 10^6/uL (4.30-6.10); WHITE BLOOD COUNT 9.7 10^3/uL (4.0-10.0)
[2021-03-08 07:54] LABS: BLOOD UREA NITROGEN 11 MG/DL (7-18); CALCIUM LEVEL 8.6 MG/DL (8.8-10.2); CARBON DIOXIDE LEVEL 28 MEQ/L (21-32); CHLORIDE LEVEL 103 MEQ/L (98-107); CREATININE FOR GFR 0.95 MG/DL (0.70-1.30); GLOMERULAR FILTRATION RATE > 60.0 (>49); GLUCOSE, FASTING 256 MG/DL (70-100); POTASSIUM SERUM 3.8 MEQ/L (3.5-5.1); SODIUM LEVEL 138 MEQ/L (136-145)
[2021-03-08] MEDS: PANTOPRAZOLE 40MG VIAL (C9113 PER 1) IV SCH ×2 (08:20→20:40)
[2021-03-08] MEDS: SUCRALFATE SUSP 1GM/10ML UD PO SCH ×4 (08:20→20:40)
[2021-03-08] MEDS: CLOPIDOGREL 75 MG TAB PO SCH (08:21)
[2021-03-08] MEDS: MULTIVITAMINS/MINERALS THERAP 1 TAB PO SCH (08:21)
[2021-03-08] MEDS: ATORVASTATIN 20 MG TAB PO SCH (08:21)
[2021-03-08] MEDS: HumaLOG INSULIN (NovoLOG) PER UNIT SC SCH ×4 (08:21→20:40)
[2021-03-08] MEDS: LEVEMIR (INSULIN DETEMIR) 1 UNITS/0.01ML SC SCH (08:21)
[2021-03-08] MEDS: predniSONE 5 MG TAB PO SCH (08:21)
[2021-03-08] MEDS: FINASTERIDE 5 MG TAB PO SCH (08:21)
[2021-03-08] MEDS: amLODIPine 5 MG TAB PO SCH (08:22)
[2021-03-08] MEDS: lisinopriL 5 MG TAB PO SCH (08:22)
[2021-03-08] MEDS: ASPIRIN 81MG ENTERIC TABLET PO SCH (08:22)
[2021-03-08] MEDS: GABAPENTIN 300 MG CAP PO SCH ×2 (08:22→20:40)
[2021-03-08] MEDS: predniSONE 1 MG TAB PO SCH (08:22)
[2021-03-08] MEDS: CitaloPRAM (CeleXA) 20 MG TAB PO SCH (08:22)
[2021-03-08 14:00] VITALS: BP 142/62
--- NOTE | 2021-03-08 16:26 | IPNPDOC ---
Text Note Date of Service The patient was seen on 03/08/21. NOTE SUBJECTIVE: -No acute events today, asking about potential discharge home, reporting that sister comes by daily to help care for him and take him appointments and is working on getting services provided by the sister as the official caregiver. OBJECTIVE: Vitals: see below General: Alert, Cooperative Eyes: EOMI, anicteric ENT: Atraumatic Neck: Supple Chest: Clear to auscultation, no crackles, rhonchi or wheezing Heart: Rate Normal, Regular Rhythm, no m/r/g Abdomen: Normal bowel sounds, Soft, NTND Extremities: Bilateral BKAs with stump ulcers that on L is deep and nickel sized without drainage or surrounding erythema and on R side is shallow with brown crusting on its perimeter without surrounding erythema or copious drainage. Neuro: Normal Speech, Cranial Nerves 3-12 NL Psych: Alert and Oriented x 3 Labs: Reviewed WBC 9.7 Hgb 10.7 platelets 154 na 138 K 3.8 Cr 0.95 Assessment: 60-year-old M with type 1 diabetes and bilateral BKA's who presented with hyperglycemia, with poor inconsistent history in the ED with family reporting that he is unable to care for himself, misses meals which is dangerous for a type I diabetic and misses his medications occasionally. He was admitted with dehydration and hyperglycemia and now with ongoing PFS investigations with vinay del cid conversation to establish a safe discharge plan. His course was c/b by acute on chronic anemia, i/s/o recent EGD on 01/13/21 which demonstrated reflux esophagitis and should be on sucralfate but he has been refusing doses now restarted and placed on Protonix to IV BID and transfused 2u pRBCs. 1. Hyperglycemia i/s/o on medication and diet non-compliance in a type I diabetic Patient's insulin pump was out of insulin Unsure patient knows how to change or use his insulin pump? Sister reported patient was found near and had to be given glucagon. It is very dangerous for type I diabetics to miss meals as they can become hypoglycemic from the insulin pump. While here, carbohydrate consistent diet Sliding scale insulin -ACHS FSBG -8u levemir daily 2. Acute blood loss anemia 01/13/21, patient had EGD which demonstrated reflux esophagitis -08/03/17, patient had colonoscopy which demonstrated melanosis, recommending 5 year follow up -Patient's esophagitis may be causing his drop in hemoglobin. Continue liquid carafate (which he refused a few times). Increase Protonix from daily to IV BID -s/p 2u pRBC and stable 3. Dehydration Oral mucosa appears dry and patient is thirsty Most likely from hyperglycemia s/p IV fluids 4. Peripheral vascular disease status post bilateral amputation Continue aspirin, Plavix, and atorvastatin 5. Diabetic neuropathy Continue gabapentin 6. BPH Continue finasteride 7. Hypertension Continue amlodipine and lisinopril 8. GERD Continue pantoprazole and Carafate 9. Adrenal insufficiency Continue prednisone 10. DVT prophylaxis Subcu heparin Disposition: PT and OT ordered, PFS onboard for safe discharge planning VS,Linda, I+O VS, Linda I+O Laboratory Tests 03/08/21 01:27 03/08/21 06:35 Vital Signs Date Time Temp Pulse Resp B/P (MAP) Pulse Ox O2 Delivery O2 Flow Rate FiO2 03/08/21 08:22 157/60 03/08/21 06:00 98.2 68 18 95 Room Air I&O- Last 24 Hours up to 6 AM 03/08/21 06:00 Intake Total 2810 ml Output Total 2400 ml Balance 410 ml WILLY GOTTLIEB MD Mar 08, 2021 16:26
[2021-03-08 22:00] VITALS: BP 154/70
[2021-03-09 06:00] VITALS: BP 157/68
[2021-03-09 08:08] LABS: HEMATOCRIT 34.3 % (42.0-52.0); HEMOGLOBIN 11.4 g/dl (13.5-17.5); MEAN CORPUSCULAR HEMOGLOBIN 30.3 pg (27.0-33.0); MEAN CORPUSCULAR HGB CONC 33.2 g/dl (32.0-36.5); MEAN CORPUSCULAR VOLUME 91.2 fl (80.0-96.0); PLATELET COUNT, AUTOMATED 274 10^3/uL (150-450); RED BLOOD COUNT 3.76 10^6/uL (4.30-6.10); WHITE BLOOD COUNT 9.2 10^3/uL (4.0-10.0)
[2021-03-09 08:35] LABS: BLOOD UREA NITROGEN 11 MG/DL (7-18); CALCIUM LEVEL 8.4 MG/DL (8.8-10.2); CARBON DIOXIDE LEVEL 28 MEQ/L (21-32); CHLORIDE LEVEL 100 MEQ/L (98-107); GLOMERULAR FILTRATION RATE > 60.0 (>49); GLUCOSE, FASTING 278 MG/DL (70-100); SODIUM LEVEL 137 MEQ/L (136-145)
[2021-03-09] MEDS ORDERED: LEVEMIR (INSULIN DETEMIR) 1 UNITS/0.01ML SC SCH (09:00)
[2021-03-09] MEDS: GABAPENTIN 300 MG CAP PO SCH ×2 (09:10→21:17)
[2021-03-09] MEDS: CitaloPRAM (CeleXA) 20 MG TAB PO SCH (09:11)
[2021-03-09] MEDS: MULTIVITAMINS/MINERALS THERAP 1 TAB PO SCH (09:11)
[2021-03-09] MEDS: lisinopriL 5 MG TAB PO SCH (09:11)
[2021-03-09] MEDS: FINASTERIDE 5 MG TAB PO SCH (09:11)
[2021-03-09] MEDS: ATORVASTATIN 20 MG TAB PO SCH (09:11)
[2021-03-09] MEDS: ASPIRIN 81MG ENTERIC TABLET PO SCH (09:11)
[2021-03-09] MEDS: predniSONE 1 MG TAB PO SCH (09:11)
[2021-03-09] MEDS: predniSONE 5 MG TAB PO SCH (09:11)
[2021-03-09] MEDS: CLOPIDOGREL 75 MG TAB PO SCH (09:12)
[2021-03-09] MEDS: amLODIPine 5 MG TAB PO SCH (09:12)
[2021-03-09] MEDS: HumaLOG INSULIN (NovoLOG) PER UNIT SC SCH ×4 (09:13→21:00)
[2021-03-09] MEDS: SUCRALFATE SUSP 1GM/10ML UD PO SCH ×4 (09:13→21:17)
[2021-03-09] MEDS: PANTOPRAZOLE 40MG VIAL (C9113 PER 1) IV SCH ×2 (09:13→21:17)
[2021-03-09] MEDS ORDERED: LEVEMIR (INSULIN DETEMIR) 1 UNITS/0.01ML SC ONE (12:00)
[2021-03-09 14:00] VITALS: BP 102/58
--- NOTE | 2021-03-09 14:11 | IPNPDOC ---
Text Note Date of Service The patient was seen on 03/09/21. NOTE SUBJECTIVE: -No acute events today -Given history of recent insulin pump out of insulin, asked about how that gets replaced and am not able to get a clear plan from the patient. Will discuss discharge plan with PFS and sister. I am concerned about his safety and ability for self care despite him being clinically stable and verbally assuring that he will do well at home and sister comes over daily etc. OBJECTIVE: Vitals: see below General: Alert, Cooperative Eyes: EOMI, anicteric ENT: Atraumatic Neck: Supple Chest: Clear to auscultation, no crackles, rhonchi or wheezing Heart: Rate Normal, Regular Rhythm, no m/r/g Abdomen: Normal bowel sounds, Soft, NTND Extremities: Bilateral BKAs with stump ulcers that on L is deep and nickel sized without drainage or surrounding erythema and on R side is shallow with brown crusting on its perimeter without surrounding erythema or copious drainage. Neuro: Normal Speech, Cranial Nerves 3-12 NL Psych: Alert and Oriented x 3 Labs: Reviewed WBC 9.2 Hgb 11.4 platelets 274 na 137 K 4 Cr 0.9 Assessment: 60-year-old M with type 1 diabetes and bilateral BKA's who presented with hyperglycemia, with poor inconsistent history in the ED with family reporting that he is unable to care for himself, misses meals which is dangerous for a type I diabetic and misses his medications occasionally. He was admitted with dehydration and hyperglycemia and now with ongoing PFS investigations with family conversation to establish a safe discharge plan. His course was c/b by acute on chronic anemia, i/s/o recent EGD on 01/13/21 which demonstrated reflux esophagitis and should be on sucralfate but he has been refusing doses now restarted and placed on Protonix BID and transfused 2u pRBCs. 1. Hyperglycemia i/s/o on medication and diet non-compliance in a type I diabetic Patient's insulin pump was out of insulin. Unsure patient knows how to change or use his insulin pump? Sister reported patient was found near and had to be given glucagon. It is very dangerous for type I diabetics to miss meals as they can become hypogl ycemic from the insulin pump. While here, carbohydrate consistent diet Sliding scale insulin -[facility] -8u levemir daily 2. Acute blood loss anemia 01/13/21, patient had EGD which demonstrated reflux esophagitis -08/03/17, patient had colonoscopy which demonstrated melanosis, recommending 5 year follow up -Patient's esophagitis may be causing his drop in hemoglobin. Continue liquid carafate (which he refused a few times). Increase Protonix from daily to IV BID -s/p 2u pRBC and stable 3. Dehydration Oral mucosa appears dry and patient is thirsty Most likely from hyperglycemia s/p IV fluids 4. Peripheral vascular disease status post bilateral amputation Continue aspirin, Plavix, and atorvastatin 5. Diabetic neuropathy Continue gabapentin 6. BPH Continue finasteride 7. Hypertension Continue amlodipine and lisinopril 8. GERD Continue pantoprazole and Carafate 9. Adrenal insufficiency Continue prednisone 10. DVT prophylaxis Subcu heparin Disposition: PT and OT ordered, PFS onboard for safe discharge planning VS,Linda, I+O VS, Meerae, I+O Laboratory Tests 03/09/21 06:46 Vital Signs Date Time Temp Pulse Resp B/P (MAP) Pulse Ox O2 Delivery O2 Flow Rate FiO2 03/09/21 06:00 98.6 67 16 157/68 (97) 98 Room Air I&O- Last 24 Hours up to 6 AM 03/09/21 06:00 Intake Total 3210 ml Output Total 2925 ml Balance 285 ml WILLY GOTTLIEB MD Mar 09, 2021 08:50
[2021-03-09 18:30] VITALS: BP 135/78
[2021-03-09 22:00] VITALS: BP 135/61
[2021-03-10 06:00] VITALS: BP 148/82
[2021-03-10 08:17] LABS: HEMATOCRIT 35.3 % (42.0-52.0); HEMOGLOBIN 12.1 g/dl (13.5-17.5); MEAN CORPUSCULAR HEMOGLOBIN 30.8 pg (27.0-33.0); MEAN CORPUSCULAR HGB CONC 34.3 g/dl (32.0-36.5); MEAN CORPUSCULAR VOLUME 89.8 fl (80.0-96.0); PLATELET COUNT, AUTOMATED 284 10^3/uL (150-450); RED BLOOD COUNT 3.93 10^6/uL (4.30-6.10)
[2021-03-10 08:40] LABS: BLOOD UREA NITROGEN 14 MG/DL (7-18); CARBON DIOXIDE LEVEL 27 MEQ/L (21-32); CHLORIDE LEVEL 102 MEQ/L (98-107); CREATININE FOR GFR 1.01 MG/DL (0.70-1.30); GLOMERULAR FILTRATION RATE > 60.0 (>49); GLUCOSE, FASTING 325 MG/DL (70-100); POTASSIUM SERUM 4.1 MEQ/L (3.5-5.1); SODIUM LEVEL 138 MEQ/L (136-145)
[2021-03-10] MEDS: SUCRALFATE SUSP 1GM/10ML UD PO SCH ×4 (08:59→20:20)
[2021-03-10] MEDS: HumaLOG INSULIN (NovoLOG) PER UNIT SC SCH ×4 (09:00→20:20)
[2021-03-10] MEDS: PANTOPRAZOLE 40MG VIAL (C9113 PER 1) IV SCH ×2 (09:00→20:20)
[2021-03-10] MEDS: LEVEMIR (INSULIN DETEMIR) 1 UNITS/0.01ML SC SCH (09:00)
[2021-03-10] MEDS: ENOXAPARIN 40MG/0.4ML SYRINGE (J1650 PER 10MG) SC SCH (09:01)
[2021-03-10] MEDS: predniSONE 1 MG TAB PO SCH (09:02)
[2021-03-10] MEDS: ATORVASTATIN 20 MG TAB PO SCH (09:07)
[2021-03-10] MEDS: MULTIVITAMINS/MINERALS THERAP 1 TAB PO SCH (09:07)
[2021-03-10] MEDS: CitaloPRAM (CeleXA) 20 MG TAB PO SCH (09:07)
[2021-03-10] MEDS: GABAPENTIN 300 MG CAP PO SCH ×2 (09:08→20:20)
[2021-03-10] MEDS: ASPIRIN 81MG ENTERIC TABLET PO SCH (09:08)
[2021-03-10] MEDS: FINASTERIDE 5 MG TAB PO SCH (09:08)
[2021-03-10] MEDS: predniSONE 5 MG TAB PO SCH (09:09)
[2021-03-10] MEDS: CLOPIDOGREL 75 MG TAB PO SCH (09:09)
[2021-03-10] MEDS: amLODIPine 5 MG TAB PO SCH (09:11)
[2021-03-10] MEDS: lisinopriL 5 MG TAB PO SCH (09:12)
[2021-03-10 14:00] VITALS: BP 129/63
--- NOTE | 2021-03-10 17:53 | IPNPDOC ---
Text Note Date of Service The patient was seen on 03/10/21. NOTE SUBJECTIVE: -No acute events today. INTERIM DISCUSSION: Discussed with him at length that I do not think it medically appropriate or safe for him to return home to care for himself as he has demonstrated with the recent events of medical non compliance that his life is at risk when he is living by himself and not adhering to his medication and diet strictly. I told him that SW spoke with his sister and mother who were distraught and expressed significant worry about him being discharged home to continue care for self under the idea that he would have his sister as the caregiver who comes by daily. 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 He was frustrated, became agitated but redirectible and I did have him explicitly state understanding that he is at risk of severe illness and if he is to return to his home to live alone. He expressed this understanding fully including symptomatic hypoglycemia, seizures, trauma, infection given his open stump wounds and at worst . He was able to verbalize all this and basically stated that if it is God's will and his time, he would not fight it. He expresses understanding and enough insight but is equally expressing that he is willing to face the dire consequences of being discharged back to him home alone. OBJECTIVE: Vitals: see below General: Alert, Cooperative Eyes: EOMI, anicteric ENT: Atraumatic Neck: Supple Chest: Clear to auscultation, no crackles, rhonchi or wheezing Heart: Rate Normal, Regular Rhythm, no m/r/g Abdomen: Normal bowel sounds, Soft, NTND Extremities: Bilateral BKAs with stump ulcers that on L is deep and nickel sized without drainage or surrounding erythema and on R side is shallow with brown crusting on its perimeter without surrounding erythema or copious drainage. Neuro: Normal Speech, Cranial Nerves 3-12 NL Psych: Alert and Oriented x 3 Labs: Reviewed Assessment: 60-year-old M with type 1 diabetes and bilateral BKA's who presented with hyperglycemia, with poor inconsistent history in the ED with family reporting that he is unable to care for himself, misses meals which is dangerous for a type I diabetic and misses his medications occasionally. He was admitted with dehydration and hyperglycemia and now with ongoing PFS investigations with family conversation to establish a safe discharge plan. His course was c/b by acute on chronic anemia, i/s/o recent EGD on 01/13/21 which demonstrated reflux esophagitis and should be on sucralfate but he has been refusing doses now restarted and placed on Protonix BID and transfused 2u pRBCs. 1. Hyperglycemia i/s/o on medication and diet non-compliance in a type I diabetic Patient's insulin pump was out of insulin. Unsure patient knows how to change or use his insulin pump? Sister reported patient was found near and had to be given glucagon. It is very dangerous for type I diabetics to miss meals as they can become hypogly cemic from the insulin pump. While here, carbohydrate consistent diet Sliding scale insulin -[facility] -8u levemir daily 2. Acute blood loss anemia 01/13/21, patient had EGD which demonstrated reflux esophagitis -08/03/17, patient had colonoscopy which demonstrated melanosis, recommending 5 year follow up -Patient's esophagitis may be causing his drop in hemoglobin. Continue liquid carafate (which he refused a few times). Increase Protonix from daily to IV BID -s/p 2u pRBC and stable 3. Dehydration Oral mucosa appears dry and patient is thirsty Most likely from hyperglycemia s/p IV fluids 4. Peripheral vascular disease status post bilateral amputation Continue aspirin, Plavix, and atorvastatin 5. Diabetic neuropathy Continue gabapentin 6. BPH Continue finasteride 7. Hypertension Continue amlodipine and lisinopril 8. GERD Continue pantoprazole and Carafate 9. Adrenal insufficiency Continue prednisone 10. DVT prophylaxis Subcu heparin Disposition: PT and OT ordered, PFS onboard for safe discharge planning VSLinda, I+O VSLinda, I+O Laboratory Tests 03/10/21 07:47 Vital Signs Date Time Temp Pulse Resp B/P (MAP) Pulse Ox O2 Delivery O2 Flow Rate FiO2 03/10/21 14:00 98.4 67 18 129/63 (85) 96 Room Air I&O- Last 24 Hours up to 6 AM 03/10/21 06:00 Intake Total 2260 ml Output Total 1480 ml Balance 780 ml WILLY GOTTLIEB MD Mar 10, 2021 17:53
[2021-03-10 22:00] VITALS: BP 118/72
[2021-03-11 06:00] VITALS: BP 152/72
[2021-03-11 07:59] LABS: HEMATOCRIT 35.3 % (42.0-52.0); HEMOGLOBIN 11.9 g/dl (13.5-17.5); MEAN CORPUSCULAR HEMOGLOBIN 30.4 pg (27.0-33.0); MEAN CORPUSCULAR HGB CONC 33.7 g/dl (32.0-36.5); MEAN CORPUSCULAR VOLUME 90.1 fl (80.0-96.0); PLATELET COUNT, AUTOMATED 299 10^3/uL (150-450); RED BLOOD COUNT 3.92 10^6/uL (4.30-6.10); WHITE BLOOD COUNT 8.2 10^3/uL (4.0-10.0)
[2021-03-11 08:25] LABS: BLOOD UREA NITROGEN 17 MG/DL (7-18); CARBON DIOXIDE LEVEL 25 MEQ/L (21-32); CHLORIDE LEVEL 100 MEQ/L (98-107); CREATININE FOR GFR 1.07 MG/DL (0.70-1.30); GLOMERULAR FILTRATION RATE > 60.0 (>49); GLUCOSE, FASTING 364 MG/DL (70-100); POTASSIUM SERUM 4.5 MEQ/L (3.5-5.1); SODIUM LEVEL 136 MEQ/L (136-145)
[2021-03-11] MEDS: PANTOPRAZOLE 40MG VIAL (C9113 PER 1) IV SCH (08:50)
[2021-03-11] MEDS: ENOXAPARIN 40MG/0.4ML SYRINGE (J1650 PER 10MG) SC SCH (08:50)
[2021-03-11] MEDS: HumaLOG INSULIN (NovoLOG) PER UNIT SC SCH ×2 (08:51→12:50)
[2021-03-11] MEDS: LEVEMIR (INSULIN DETEMIR) 1 UNITS/0.01ML SC SCH (08:52)
[2021-03-11] MEDS: SUCRALFATE SUSP 1GM/10ML UD PO SCH ×2 (08:52→12:49)
[2021-03-11] MEDS: FINASTERIDE 5 MG TAB PO SCH (08:55)
[2021-03-11] MEDS: ASPIRIN 81MG ENTERIC TABLET PO SCH (08:55)
[2021-03-11] MEDS: predniSONE 1 MG TAB PO SCH (08:55)
[2021-03-11] MEDS: MULTIVITAMINS/MINERALS THERAP 1 TAB PO SCH (08:56)
[2021-03-11] MEDS: CitaloPRAM (CeleXA) 20 MG TAB PO SCH (08:56)
[2021-03-11] MEDS: GABAPENTIN 300 MG CAP PO SCH (08:56)
[2021-03-11] MEDS: ATORVASTATIN 20 MG TAB PO SCH (08:56)
[2021-03-11 08:57] VITALS: BP 154/74
[2021-03-11] MEDS: predniSONE 5 MG TAB PO SCH (08:57)
[2021-03-11] MEDS: lisinopriL 5 MG TAB PO SCH (08:57)
[2021-03-11] MEDS: amLODIPine 5 MG TAB PO SCH (08:57)
[2021-03-11] MEDS: CLOPIDOGREL 75 MG TAB PO SCH (08:57)
[2021-03-11 14:00] VITALS: BP 107/60
--- NOTE | 2021-03-11 15:57 | IPNPDOC ---
Text Note Date of Service The patient was seen on 03/11/21. NOTE SUBJECTIVE: -No acute events today. -Frustrated and wants to be discharged but could not secure a ride. I explained again that I would not recommend discharge home by himself as he is unable to care for himself and his medical needs and high risk for readmission, illness and . The only way he could be discharged at this time would be AMA. OBJECTIVE: Vitals: see below General: Alert, Cooperative Eyes: EOMI, anicteric ENT: Atraumatic Neck: Supple Chest: Clear to auscultation, no crackles, rhonchi or wheezing Heart: Rate Normal, Regular Rhythm, no m/r/g Abdomen: Normal bowel sounds, Soft, NTND Extremities: Bilateral BKAs with stump ulcers that on L is deep and nickel sized without drainage or surrounding erythema and on R side is shallow. Neuro: Normal Speech, Cranial Nerves 3-12 NL Psych: Alert and Oriented x 3 Labs: Reviewed Assessment: 60-year-old M with type 1 diabetes and bilateral BKA's who presented with hyperglycemia, with poor inconsistent history in the ED with family reporting that he is unable to care for himself, misses meals which is dangerous for a type I diabetic and misses his medications occasionally. He was admitted with dehydration and hyperglycemia and now with ongoing PFS investigations with family conversation to establish a safe discharge plan. His course was c/b by acute on chronic anemia, i/s/o recent EGD on 01/13/21 which demonstrated reflux esophagitis and should be on sucralfate but he has been refusing doses now rest arted and placed on Protonix BID and transfused 2u pRBCs. 1. Hyperglycemia i/s/o on medication and diet non-compliance in a type I diabetic Patient's insulin pump was out of insulin. Unsure patient knows how to change or use his insulin pump? Sister reported patient was found near and had to be given glucagon. It is very dangerous for type I diabetics to miss meals as they can become hypoglycemic from the insulin pump. While here, carbohydrate consistent diet Sliding scale insulin -[facility] -8u levemir daily 2. Acute blood loss anemia 01/13/21, patient had EGD which demonstrated reflux esophagitis -08/03/17, patient had colonoscopy which demonstrated melanosis, recommending 5 year follow up -Patient's esophagitis may be causing his drop in hemoglobin. Continue liquid carafate (which he refused a few times). Increase Protonix from daily to IV BID -s/p 2u pRBC and stable 3. Dehydration Oral mucosa appears dry and patient is thirsty Most likely from hyperglycemia s/p IV fluids 4. Peripheral vascular disease status post bilateral amputation Continue aspirin, Plavix, and atorvastatin 5. Diabetic neuropathy Continue gabapentin 6. BPH Continue finasteride 7. Hypertension Continue amlodipine and lisinopril 8. GERD Continue pantoprazole and Carafate 9. Adrenal insufficiency Continue prednisone 10. DVT prophylaxis Subcu heparin Disposition: PT and OT ordered, PFS onboard for safe discharge planning VS,Linda, I+O VS, Linda, I+O Laboratory Tests 03/11/21 06:51 Vital Signs Date Time Temp Pulse Resp B/P (MAP) Pulse Ox O2 Delivery O2 Flow Rate FiO2 03/11/21 08:57 73 154/74 03/11/21 06:00 98.3 19 96 Room Air I&O- Last 24 Hours up to 6 AM 03/11/21 06:00 Intake Total 1740 ml Output Total 1625 ml Balance 115 ml WILLY GOTTLIEB MD Mar 11, 2021 15:57
--- NOTE | 2021-03-11 18:07 | DS.PDOC ---
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 HISTORY OF PRESENT ILLNESS: 60-year-old M with type 1 diabetes and bilateral BKA's who presented with hyperglycemia. Patient was AO x3, but was an inconsistent historian. He told the admitting physician that he came in for hypoglycemia when was actually hyperglycemic. HOSPITAL COURSE: The ED provider noticed his insulin pump was empty and it seemed like patient did not know how to change his insulin pump. He otherwise denied any problems. He was just thirsty. He reported not being out of any of his medications. When the admitting physician called his mother, re reported that she told him that the patient lives alone in his own apartment and missed medications and meals an d earlier that week his sister had found the patient hypoglycemic and munoz and had to give him a glucagon injection and that they could not keep caring for the patient. His vital signs were wnl with initial mild tachycardia that improved with fluids. Labs demonstrated chronic anemia and a mild white blood count. Blood glucose was elevated at 375. Serum osmolality mildly elevated at 303. Chest x-ray did not suggest pneumonia. UA was negative for UTI. Patient had bilateral BKA stump wounds that were clean, without surrounding erythema. He was admitted for hyperglycemia and possible placement. His hyperglycemia resolved with starting a basal bolus regimen with levemir and SSI while inhouse. I discussed with him at length that I do not think it medically appropriate or safe for him to return home to care for himself as he has demonstrated with the recent events of medical non compliance that his life is at risk when he is living by himself and not adhering to his medication and diet strictly. I told him that SW spoke with his sister and mother who were distraught and expressed s ignificant worry about him being discharged home to continue care for self under the idea that he would have his sister as the caregiver who comes by daily. 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 He was frustrated, became agitated but redirectible and I did have him explicitly state understanding that he is at risk of severe illness and if he is to return to his home to live alone. He expressed this understanding fully including symptomatic hypoglycemia, seizures, trauma, infection given his open stump wounds and at worst . He was able to verbalize all this and basically stated that if it is God's will and his time, he would not fight it. He expressed understanding and enough insight but was equally expressing that he was willing to face the dire consequences of being discharged back to home to continue living alone. At this time, he has called his family that disagreed with his plan per my discussion with his sister but also understand that he has the legal write as an adult with capacity to r efuse placement and leave the hospital against medical advice, and his brother is picking him up to take him home. DISCHARGE MEDICATIONS: Please see below. ALLERGIES: Please see below. PHYSICAL EXAMINATION ON DISCHARGE: VITAL SIGNS: Please see below. General: Alert, Cooperative Eyes: EOMI, anicteric ENT: Atraumatic Neck: Supple Chest: Clear to auscultation, no crackles, rhonchi or wheezing Heart: Rate Normal, Regular Rhythm, no m/r/g Abdomen: Normal bowel sounds, Soft, NTND Extremities: Bilateral BKAs with stump ulcers that on L is deep and nickel sized without drainage or surrounding erythema and on R side is shallow. Neuro: Normal Speech, Cranial Nerves 3-12 NL Psych: Alert and Oriented x 3 LABORATORY DATA: Please see below. IMAGING: CXR: There is cardiomegaly and pulmonary venous hypertension without overt congestive heart failure. There are no pleural effusions. The upper abdominal bowel gas pattern is normal. IMPRESSION: Cardiomegaly and pulmonary venous hypertension without congestive heart failure. Head CT: There is moderate diffuse cerebral atrophy with concomitant ventriculomegaly. There is patchy low density of the periventricular white matter consistent with chronic ischemic white matter disease. There is calcific vascular disease of the intracranial portion of both internal carotid arteries and both vertebral arteries. There is no evidence of acute intracranial hemorrhage or infarction. There are no abnormal intracranial masses or mass effects. The skull base and calvarium are normal. The visualized mastoid air cells and paranasal sinuses are clear. The intraorbital contents and visualized extracranial soft tissues are unremarkable. IMPRESSION: Moderate cerebral atrophy. No evidence of acute intracranial pathology. PROGNOSIS: Good with medical and dietary adherence. High risk for readmission. ACTIVITY: As tolerated DIET: consistent carb DISCHARGE PLAN: AMA DISPOSITION: AMA DISCHARGE INSTRUCTIONS: AMA I urged him to refill his insulin pump and adhere to his medications and consistent carb diet. I also urged him to call Dr. Ledesma's office for a follow up appointment, call Dr. Caro's office for a follow up appointment and call his PCP for a follow up appointment. ITEMS TO FOLLOWUP ON ON OUTPATIENT: DM BKA stump wound care Medical compliance DISCHARGE CONDITION: Stable TIME SPENT ON DISCHARGE: 40 minutes. Vital Signs/I&Os Vital Signs Date Time Temp Pulse Resp B/P (MAP) Pulse Ox O2 Delivery O2 Flow Rate FiO2 03/11/21 08:57 73 154/74 03/11/21 06:00 98.3 19 96 Room Air I&O- Last 24 Hours up to 6 AM 03/11/21 06:00 Intake Total 1740 ml Output Total 1625 ml Balance 115 ml Laboratory Data Labs 24H Laboratory Tests 2 03/10/21 19:38: Bedside Glucose (Misc Panel) 222H 03/11/21 06:51: Nucleated Red Blood Cells % (auto) 0.0, Anion Gap 11, Glomerular Filtration Rate > 60.0, Calcium Level 9.0 03/11/21 11:49: Bedside Glucose (Misc Panel) 384H CBC/BMP Laboratory Tests 03/11/21 06:51 FSBS Laboratory Tests Test 03/10/21 19:38 03/11/21 11:49 Range/Units Bedside Glucose (Misc Panel) 222 384 80-115 MG/DL Microbiology Microbiology 03/09/21 Stool Occult Blood (DARLINE) - Final, Complete Discharge Medications Scheduled Amlodipine Besylate (Norvasc) 5 Mg Tablet, 5 MG PO DAILY, (Reported) Aripiprazole (Abilify) 5 Mg Tablet, 5 MG PO DAILY, (Reported) Aspirin (Aspirin EC) 81 Mg Tablet.dr, 81 MG PO DAILY, (Reported) Atorvastatin Calcium (Atorvastatin Calcium) 40 Mg Tablet, 40 MG PO DAILY, (Repo rted) Citalopram Hydrobromide (Citalopram HBr) 40 Mg Tablet, 40 MG PO DAILY, (Reported) Clopidogrel Bisulfate (Plavix) 75 Mg Tablet, 75 MG PO DAILY, (Reported) Ferrous Sulfate (Ferrous Sulfate) 325 Mg Tab, 325 MG PO QWEEK, (Reported) SUNDAY Finasteride (Finasteride) 5 Mg Tablet, 5 MG PO DAILY, (Reported) Gabapentin (Gabapentin) 300 Mg Capsule, 300 MG PO BID, (Reported) Insulin Human Lispro (Novolog) 100 Unit/1 Ml Vial, 1 DOSE SC ASDIRECTED, (Reported) SLIDING SCALE. UP TO 100 UNITS DAILY CONTINUOUS THROUGH INSULIN PUMP Lisinopril (Lisinopril) 5 Mg Tablet, 5 MG PO DAILY, (Reported) Multivitamins (Thera M Plus Tablet) 1 Each Tablet, 1 TAB PO DAILY, (Reported) Pantoprazole Sodium (Pantoprazole Sodium) 40 Mg Tablet.dr, 40 MG PO DAILY, (Reported) Prednisone (Prednisone) 1 Mg Tablet, 4 MG PO DAILY, (Reported) TAKES WITH 5MG FOR 9MG TOTAL Prednisone (Prednisone) 5 Mg Tablet, 5 MG PO DAILY, (Reported) TAKE WITH 4MG FOR 9MG TOTAL Sucralfate (Sucralfate) 1 Gm/10 Ml Oral.susp, 1 GM PO ACHS, (Reported) Scheduled PRN Acetaminophen (Acetaminophen) 325 Mg Tablet, 650 MG PO Q4H PRN for PAIN LEVEL 1- 4, (Reported) Docusate Sodium (Stool Softener) 100 Mg Capsule, 100 MG PO DAILY PRN for CONSTIPATION, (Reported) Glucagon,Human Recombinant (Glucagon Emergency Kit) 1 Mg Vial, 1 MG IM ASDIRECTED PRN for LOW BLOOD SUGAR, (Reported) Allergies Coded Allergies: No Known Allergies (Unverified , 02/11/21) WILLY GOTTLIEB MD Mar 11, 2021 17:27
== END 2021-03-11 17:39 | disposition left against medical advice (07) | DRG 638 ==
LOC: M ED 07:48 → M ED INP 16:28 → ENRESERV 17:52 → M MSPAV 20:22
PROVIDERS: ADMIT Internal Medicine; ATTEND Internal Medicine
PROC: 30233N1 Transfusion of Nonautologous Red Blood Cells into Peripheral Vein, Percutaneous Approach (ICD-10-PCS; principal; 2021-03-07)
DX: E10.65 Type 1 diabetes mellitus with hyperglycemia (principal); D62 Acute posthemorrhagic anemia; E27.40 Unspecified adrenocortical insufficiency; E10.21 Type 1 diabetes mellitus with diabetic nephropathy; E10.319 Type 1 diabetes mellitus with unspecified diabetic retinopathy without macular edema; E10.43 Type 1 diabetes mellitus with diabetic autonomic (poly)neuropathy; E10.51 Type 1 diabetes mellitus with diabetic peripheral angiopathy without gangrene; N40.0 Benign prostatic hyperplasia without lower urinary tract symptoms; F31.9 Bipolar disorder, unspecified; T38.3X6A Underdosing of insulin and oral hypoglycemic [antidiabetic] drugs, initial encounter; E86.0 Dehydration; E78.5 Hyperlipidemia, unspecified; G43.909 Migraine, unspecified, not intractable, without status migrainosus; Z79.82 Long term (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; Z79.4 Long term (current) use of insulin; Z79.52 Long term (current) use of systemic steroids; Z79.02 Long term (current) use of antithrombotics/antiplatelets; Z79.899 Other long term (current) drug therapy; K21.00 Gastro-esophageal reflux disease with esophagitis, without bleeding; Z87.891 Personal history of nicotine dependence; Z89.511 Acquired absence of right leg below knee; Z89.512 Acquired absence of left leg below knee; Z91.138 Patient's unintentional underdosing of medication regimen for other reason; Z91.11 Patient's noncompliance with dietary regimen

== ENCOUNTER → 2021-04-05 | Outpatient (POV) | payer OTHER, MEDICAID ==
[~2021-04-05] VITALS: Ht 175.3 cm; Wt 70.0 kg
[2021-04-05 11:10] VITALS: BP 119/58
== END ==
LOC: M IRPOV 11:05
PROVIDERS: ATTEND Radiology Diagnostic Radiology
DX: T87.89 Other complications of amputation stump (principal); E10.51 Type 1 diabetes mellitus with diabetic peripheral angiopathy without gangrene; I10 Essential (primary) hypertension; E78.5 Hyperlipidemia, unspecified; I73.9 Peripheral vascular disease, unspecified; Z79.01 Long term (current) use of anticoagulants; Z79.4 Long term (current) use of insulin; Z79.82 Long term (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; Z79.899 Other long term (current) drug therapy; Z87.891 Personal history of nicotine dependence; Z89.511 Acquired absence of right leg below knee; Z89.512 Acquired absence of left leg below knee; Z96.41 Presence of insulin pump (external) (internal)